=== PATIENT | female | born 1950 | race Caucasian/White ===

== ENCOUNTER → 2018-05-28 10:23 | Outpatient (CLI) | payer MEDICARE, SELFPAY ==
[2018-05-28 12:31] LABS: Absolute Lymphocyte Count 1.52 X10^3/ul (0.83-4.51); Absolute Neutrophil Count 4.6 X10^3/uL (2.0-7.7); Basophil# 0.04 X10^3/uL; Basophil% 0.6 % (0-1); Eosinophils% 1.5 % (0-5); Hematocrit 46.2 % (37-47); Hemoglobin 14.6 g/dl (12.0-15.0); Lymphocyte # 1.52 X10^3/ul (4.0); Lymphocyte % 22.6 % (19-41); Mean Corp Hgb Conc 31.6 g/gl (32-36); Mean Corpuscular Hgb 31.5 pg (27.0-32.0); Mean Corpuscular Volume 99.8 fL (81-99); Mean Platelet Vol. 12.2 fl (6.2-12.0); Monocyte# 0.51 X10^3/uL; Monocyte% 7.6 % (0-10); Neutrophil # 4.55 X10^3/uL (2.7-7.7); Neutrophil % 67.7 % (47-70); Platelet Count 186 K/mm3 (150-450); RBC Distribution Width CV 13.4 % (11.6-14.6); RBC Distribution Width SD 48.5 fl (35.1-43.9); Red Blood Count 4.63 M/mm3 (4.2-5.4); White Blood Count 6.7 K/mm3 (4.4-11.0)
[2018-05-28 12:40] LABS: POSITIVE COUNT NO; POSITIVE DIFFERENTIAL NO; POSITIVE MORPHOLOGY NO
[2018-05-28 12:48] LABS: Vitamin D,25 Hydroxy 43.1 ng/mL (29.95-100.01)
[2018-05-28 13:02] LABS: ALB/GLOB Ratio 0.9 RATIO (0.9-2.4); AST(SGOT) 25 U/L (15-37); Alanine Aminotransfer ALT/SGPT 24 U/L (13-56); Albumin, Serum 3.5 g/dL (3.2-5.0); Alkaline Phosphatase 62 U/L (45-117); Anion Gap 11 (5-15); BUN 10 mg/dL (7-18); BUN/Creat Ratio 11.5 RATIO (10-20); Calcium,Total 9.5 mg/dL (8.5-10.1); Chloride 105 mmol/L (98-107); Creatinine, Serum 0.87 mg/dL (0.55-1.02); EST Glomerular Filtration Rate 69 mL/min (>60); Est Glom Filt Rate - Afr Amer 84 mL/min (>60); Globulin 3.7 g/dL (2.2-4.2); Glucose 96 mg/dL (74-106); Potassium 3.8 mmol/L (3.5-5.1); Protein, Total 7.2 g/dL (6.4-8.2); Sodium Level 143 mmol/L (136-145); Thyroid Stim Hormone (TSH) 4.17 uIU/mL (0.358-3.74)
[2018-05-29 14:39] LABS: Hep C Antibodies <0.1 s/co ratio (0.0-0.9)
== END ==
PROVIDERS: Family Provider Family Medicine Geriatric Medicine; PCP Family Medicine Geriatric Medicine; Visit Provider Family Medicine Geriatric Medicine
DX: E55.9 Vitamin D deficiency, unspecified (principal); R53.83 Other fatigue; Z13.89 Encounter for screening for other disorder
CPT/HCPCS: 36415; 80053; 82306; 84443; 85025; 86803

== ENCOUNTER 2018-10-17 12:43 | Inpatient (IN) | payer MEDICARE, SELFPAY ==
[2018-10-17] VITALS (8 sets, daily range): BP systolic 114–136; BP diastolic 61–84; PULSE 109–125; RESP 16–23; TEMP 36.6–37.6; O2SAT 93–99; BMI 22.4; BMI 22.5; BMI 31.1
[2018-10-17] MEDS: 0.9% Normal Saline 1,000 ML 1000 ML IV (13:34)
[2018-10-17 13:46] LABS: Absolute Lymphocyte Count 2.19 X10^3/ul (0.83-4.51); Absolute Neutrophil Count 3.1 X10^3/uL (2.0-7.7); Basophil# 0.09 X10^3/uL; Basophil% 1.6 % (0-1); Eosinophil# 0.03 X10^3/uL; Eosinophils% 0.5 % (0-5); Hematocrit 44.1 % (37-47); Hemoglobin 14.5 g/dl (12.0-15.0); Lymphocyte # 2.19 X10^3/ul (4.0); Mean Corp Hgb Conc 32.9 g/gl (32-36); Mean Corpuscular Hgb 32.4 pg (27.0-32.0); Mean Corpuscular Volume 98.4 fL (81-99); Mean Platelet Vol. 9.5 fl (6.2-12.0); Monocyte# 0.31 X10^3/uL; Monocyte% 5.4 % (0-10); Neutrophil # 3.14 X10^3/uL (2.7-7.7); Neutrophil % 54.3 % (47-70); Platelet Count 228 K/mm3 (150-450); RBC Distribution Width CV 13.6 % (11.6-14.6); RBC Distribution Width SD 49.1 fl (35.1-43.9); Red Blood Count 4.48 M/mm3 (4.2-5.4); White Blood Count 5.8 K/mm3 (4.4-11.0)
[2018-10-17 13:48] LABS: POSITIVE COUNT NO; POSITIVE DIFFERENTIAL NO; POSITIVE MORPHOLOGY NO
[2018-10-17] MEDS: LORazepam 2 MG/ML Syringe 1 MG IV ×2 (13:51→19:34)
[2018-10-17 13:56] LABS: ALB/GLOB Ratio 1.1 RATIO (0.9-2.4); AST(SGOT) 39 U/L (15-37); Alanine Aminotransfer ALT/SGPT 31 U/L (13-56); Albumin, Serum 3.5 g/dL (3.2-5.0); Alkaline Phosphatase 86 U/L (45-117); Anion Gap 10 (5-15); BUN 8 mg/dL (7-18); BUN/Creat Ratio 13.4 RATIO (10-20); Calcium,Total 8.4 mg/dL (8.5-10.1); Chloride 108 mmol/L (98-107); EST Glomerular Filtration Rate 107 mL/min (>60); Est Glom Filt Rate - Afr Amer 129 mL/min (>60); Estimated Creatinine Clearance 49.12 ml/min; Globulin 3.3 g/dL (2.2-4.2); Glucose 89 mg/dL (74-106); Potassium 3.5 mmol/L (3.5-5.1); Protein, Total 6.8 g/dL (6.4-8.2); Sodium Level 147 mmol/L (136-145)
--- NOTE | 2018-10-17 14:26 | ED.RN ---
LAB CALLED WITH CRITICAL LAB RESULTS. etoh 404. DR. OLIVA MADE AWARE NO NEW ORDERS AT THIS TIME
[2018-10-17 15:37] LABS: Amphetamine Urine VISTA NEGATIVE (<1000 ng/mL); Barbiturate Urine VISTA NEGATIVE (< 200 ng/mL); Benzodiazepine Urine VISTA NEGATIVE (< 200 ng/mL); Cocaine Urine VISTA NEGATIVE (< 300 ng/mL); Ecstacy Urine VISTA NEGATIVE (< 500 ng/mL); Methadone Urine VISTA NEGATIVE (< 300 ng/mL); PCP Urine VISTA NEGATIVE (< 25 ng/mL); THC Urine VISTA NEGATIVE (< 50 ng/mL); Vista UDS pH Range 6
--- NOTE | 2018-10-17 16:11 | ED.DCSUM_ITS ---
- ER Visit Summary Date of Service: 10/17/18 Chief Complaint: I am a drunk. History of Present Illness: The patient is a [address] Palacios. She reports that she drinks daily and has for years. She reports that she drinks a pint of vodka per day. She has had alcohol withdrawal in the past and states she feels shaky as though she is in withdrawal now. She reports her last drink was at 7 PM yesterday. Review of systems: General: No fever, chills, cold sweats. Cardiovascular: No chest pain, palpitations. Respiratory: No cough, shortness of breath, dyspnea on exertion. Gastrointestinal: No abdominal pain, nausea, vomiting, diarrhea, melena, or hematochezia. Genitourinary: No dysuria, frequency, hematuria. Skin: No rash. Neuro: No headache, numbness, weakness. Physical Examination: Vitals: 98.6, 136/84, 125, 18, 98% on room air which is not hypoxic. General: Well-nourished and well-developed. Head: Normocephalic atraumatic. Neck: Supple, no lymphadenopathy. No JVD. Nontender. Cardiovascular: Tachycardic regular rhythm no murmurs. Respiratory: No respiratory distress. Clear to auscultation bilaterally. Abdominal: Soft, nontender, nondistended, normal bowel sounds. No guarding, rebound, or peritoneal signs. Back: Nontender. Extremities: Nontender, no edema. Skin: Normal color, no rash. Neurologic: Alert and oriented ?3. Cranial nerves II through XII are intact. Normal strength and sensation. Psych: Depressed affect. Test Results: CBC is marked for basophils of 2. Chem-7 is remarkable for sodium 147, chloride 108, calcium 8.4. LFTs marked for an AST of 39. Tox screen is negative. But alcohol level is 404. Emergency Department Course and Treatment: Patient was given a milligram of Ativan IV. She is resting comfortably. Treatment Plan: Patient was discussed with [facility]. They have seen her in the [facility] department and feel that she is appropriate for admission to the program. Patient was discussed with Dr. Robert and will be admitted. Disposition: Admitted in stable condition. Impression: 1. Alcohol intoxication. This note was generated with [employer] software. It may contain incorrect words, spelling, and punctuation that were not noted in review of the chart prior to signing ED Disposition - Plan for ED Patient: Chief Complaint: Substance Abuse Referrals: Khai Palacios Chi, MD [Primary Care Provider] -
--- NOTE | 2018-10-17 16:44 | PCM.HP.STD ---
Problem List (1) Alcohol withdrawal Status: Acute (2) AA (alcohol abuse) Status: Chronic (3) Tobacco dependence Status: Chronic (4) GI bleed Status: Chronic Qualifiers: GI bleed type/associated pathology: unspecified gastrointestinal hemorrhage type Qualified Code(s): K92.2 - Gastrointestinal hemorrhage, unspecified (5) Hypothyroidism Status: Chronic Qualifiers: Hypothyroidism type: unspecified Qualified Code(s): E03.9 - Hypothyroidism, unspecified (6) Hyperlipidemia Status: Chronic Qualifiers: Hyperlipidemia type: unspecified Qualified Code(s): E78.5 - Hyperlipidemia, unspecified History of Present Illness Date of Admission: 10/17/18 Chief Complaint: Acute Alcohol Withdrawal with history of DT The patient is a 68 y/o F w/ PMHx: EtOH Abuse (1 pint vodka, whiskey, beer and wine daily), Hypothyroidism, HLD, History of GI bleed, Anxiety and Depression who presents to the [facility] ED on 10/17/17 with her family w/ noted acute EtOH withdrawal, onset starting this late afternoon following last EtOH intake earlier in the AM with onset of mild nausea, very mild tremors, mild agitation as well as tactile disturbances. Patient interested in attaining sober status. Discussed her intake at length upon ED presentation as resulting EtOH level notably elevated and she does not appear intoxicated as initially only admitting to 1 pint vodka daily and noted last intake the evening prior. Patient notes that she has been in acute rehab 3 or 4 times with the last 2 years ago and she remains sober only handful of months following an return to alcohol usage. She does have a history of delirium tremens. In the ED work-up included T 98.6, heart rate 125, BP 136/84, respiratory rate 22, 98% on room air, CBC with WBC 5.8, hemoglobin 14.5, platelet 228 without market shift, CMP with sodium 147, chloride 108, AST/ALT 39/31, urine drug screen negative, alcohol level 404. 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 Past Medical History Past Medical History (Chronic Problems): Chronic Problems AA (alcohol abuse) (Chronic) Tobacco dependence (Chronic) GI bleed (Chronic) Hypothyroidism (Chronic) Hyperlipidemia (Chronic) Allergies No Known Allergies Allergy (Verified 10/17/18 12:46) Home Medications: Ambulatory Orders Medication Instructions Recorded Duloxetine HCl 60 mg PO DAILY 12/26/14 traZODone [Desyrel] 100 mg PO QHS 12/26/14 Aspirin [Aspirin, Baby] 81 mg PO DAILY@0800 10/17/18 Atorvastatin Calcium [Lipitor] 40 mg PO QHS 10/17/18 Levothyroxine [Synthroid] 50 mcg PO DAILY 10/17/18 Surgical History: no surgical history Psychiatric History: Anxiety, Depression 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 Tobacco Use: Cigarettes Alcohol: Heavy - 1 pint vodka, whiskey, beer and wine daily. Drugs: None - *Family History Maternal History Items: Heart Disease Paternal History Items: Heart Disease Review of Systems Constitutional: Reports: Malaise, Weakness, Fatigue. Denies: Chills, Fever, Weight Change HEENT: Denies: Head Aches, Sinus Congestion, Sinus Drainage Cardiovascular: Denies: Chest Pain, Palpitations Respiratory: Denies: Cough, Shortness of breath at rest, Sputum production Gastrointestinal: Denies: Abdominal Pain, Nausea, Vomiting Genitourinary: Denies: Dysuria Musculoskeletal: Denies: Joint Pain, Joint Tenderness Skin: Denies: Rash, Wounds Neurological: Reports: Tremor, Seizures. Denies: Focal weakness, Numbness, Tingling Psychiatric: Reports: Anxiety, Depression. Denies: Homicidal Ideations, Suicidal Ideations Hematologic/ Lymphatic: Reports: Easy Bruising, Easy Bleeding VTE Information - Inpt Only VTE Present on Admission: No VTE Mechan Device Prophylaxis: SCD's VTE Pharm Prophylaxis ordered?: Yes Patient Problems: Active and Suspected Problems Alcohol withdrawal (Acute) Subjective: Seated upright in the ED, mildly agitated, moving about, minimal tremors noted but recent ativan. Objective: Physical Examination: General: awake, alert, oriented x 3 and cooperative, seated upright in the ED bed, mildly agitated, anxious appearing, moving about in the bed, mild tremors, recent ativan given. Skin: normal color, turgor, no icterus, cyanosis. HEENT: AT/NC, EOMI, PERRLA, dry MM, no carotid bruits or JVD noted. Lungs: CTA bilaterally, moderate effort, mild decrease BL bases, no rales, ronchi or wheezing. Heart: Mildly tachycardic with regular rhythm; no gallop, rub audible. Abdomen: soft, NTTP, ND, normal BS, + HM. Extremities: no cyanosis, clubbing, or edema. Neurological: patient awake, alert, oriented x 3; cognitive function intact; pupils equally reactive to light and accomodation; cranial nerves II-XII grossly normal, moving all 4 extremities, no focal deficits, mild tremors, anxious, moving about, strength moderately globally decreased. Psychiatric: affect appears mildly agitated, anxious, no acute evidence of depressive feelings. - Physical Exam Vital Signs Temp Pulse Resp BP Pulse Ox 98.6 F 109 H 16 118/66 99 10/17/18 12:43 10/17/18 16:00 10/17/18 16:00 10/17/18 16:00 10/17/18 16:00 Oxygen Delivery Method Room Air Weight: 135 lb Body Mass Index (BMI) 22.4 Laboratory Tests Past 24 Hrs 10/17/18 10/17/18 10/17/18 13:33 13:33 13:33 WBC 5.8 RBC 4.48 Hgb 14.5 Hct 44.1 MCV 98.4 MCH 32.4 H MCHC 32.9 RDW 13.6 RDW Differential 49.1 H Plt Count 228 MPV 9.5 Immature Gran % (Auto) 0.200 Neut % (Auto) 54.3 Lymph % (Auto) 38.0 [place] % (Auto) 5.4 Eos % (Auto) 0.5 Baso % (Auto) 1.6 H Absolute Neuts (auto) 3.1 Absolute Lymphs (auto) 2.19 Total Counted Not Reportable Sodium 147 H Potassium 3.5 Chloride 108 H Carbon Dioxide 29.0 Anion Gap 10 BUN 8 Creatinine 0.60 Estim Creat Clear Calc 49.12 Est GFR (MDRD) Af Amer 129 Est GFR (MDRD) Non-Af 107 BUN/Creatinine Ratio 13.4 Glucose 89 Calcium 8.4 L Total Bilirubin 0.30 AST 39 H ALT 31 Alkaline Phosphatase 86 Total Protein 6.8 Albumin 3.5 Globulin 3.3 Albumin/Globulin Ratio 1.1 Urine Opiates Screen Urine Methadone Screen Ur Barbiturates Screen Ur Phencyclidine Scrn Ur Amphetamines Screen U Methamphetamin-MDMA U Benzodiazepines Scrn Urine Cocaine Screen U Cannabinoids Screen Ur Drug Screen Comment Ethyl Alcohol 404.0 H* 10/17/18 15:13 WBC RBC Hgb Hct MCV MCH MCHC RDW RDW Differential Plt Count MPV Immature Gran % (Auto) Neut % (Auto) Lymph % (Auto) [place] % (Auto) Eos % (Auto) Baso % (Auto) Absolute Neuts (auto) Absolute Lymphs (auto) Total Counted Sodium Potassium Chloride Carbon Dioxide Anion Gap BUN Creatinine Estim Creat Clear Calc Est GFR (MDRD) Af Amer Est GFR (MDRD) Non-Af BUN/Creatinine Ratio Glucose Calcium Total Bilirubin AST ALT Alkaline Phosphatase Total Protein Albumin Globulin Albumin/Globulin Ratio Urine Opiates Screen NEGATIVE Urine Methadone Screen NEGATIVE Ur Barbiturates Screen NEGATIVE Ur Phencyclidine Scrn NEGATIVE Ur Amphetamines Screen NEGATIVE U Methamphetamin-MDMA NEGATIVE U Benzodiazepines Scrn NEGATIVE Urine Cocaine Screen NEGATIVE U Cannabinoids Screen NEGATIVE Ur Drug Screen Comment Ethyl Alcohol Assessment/Plan All Active Problems Alcohol withdrawal (Acute) The patient is a 68 y/o F w/ PMHx: EtOH Abuse (1 pint vodka, whiskey, beer and wine daily), Hypothyroidism, HLD, History of GI bleed, Anxiety and Depression who presents to the [facility] ED on 10/17/17 with her family w/ noted acute EtOH withdrawal, onset starting this late afternoon following last EtOH intake earlier in the AM with onset of mild nausea, very mild tremors, mild agitation as well as tactile disturbances. Patient interested in attaining sober status. (1) Acute EtOH Withdrawal: Will admit to [facility] on telemetry, routine labs obtained in the ED including CBC, CMP, urine for drug screen, will obtain mag and phos levels, given symptoms, [facility] noted CIWA 21 score despite notable EtOH level, will initiate and continue on [facility] service protocol with taper course of librium, as needed Seroquel, Catapres, Bentyl, Vistaril, IV fluids, IV antiemetics, Tylenol as needed for pain. Once patient clinically improved and completion of taper nearing will plan [facility] assistance for transition to next level of rehabilitation care. Maintain on CIWA protocol. (2) Anxiety and Depression: Continue home regimen of duloxetine which could be increased, nightly trazodone. Discussed need for [facility] discussion with patient for establishment of outpatient therapy in addition to ongoing medications with consideration of increase of duloxetine. (3) Tobacco Abuse: Encouraged cessation, inpatient consultation per RT, NR deferred given very low amount of cigarette usage. (4) Hypothyroidism: Continue home synthroid regimen, TSH pending. (5) Hyperlipidemia: Continue home statin regimen. (6) History of GI bleed, GERD: PPI. (7) DVT Prophylaxis: SCDs, lovenox. Code Visit Inpatient E&M: 65000 Init Hosp L3
--- NOTE | 2018-10-17 16:54 | HP.PCM_ITS ---
Problem List (1) Alcohol withdrawal Status: Acute (2) AA (alcohol abuse) Status: Chronic (3) Tobacco dependence Status: Chronic (4) GI bleed Status: Chronic Qualifiers: GI bleed type/associated pathology: unspecified gastrointestinal hemorrhage type Qualified Code(s): K92.2 - Gastrointestinal hemorrhage, unspecified (5) Hypothyroidism Status: Chronic Qualifiers: Hypothyroidism type: unspecified Qualified Code(s): E03.9 - Hypothyroidism, unspecified (6) Hyperlipidemia Status: Chronic Qualifiers: Hyperlipidemia type: unspecified Qualified Code(s): E78.5 - Hyperlipidemia, unspecified History of Present Illness Date of Admission: 10/17/18 Chief Complaint: Acute Alcohol Withdrawal with history of DT The patient is a 68 y/o F w/ PMHx: EtOH Abuse (1 pint vodka, whiskey, beer and wine daily), Hypothyroidism, HLD, History of GI bleed, Anxiety and Depression who presents to the [facility] ED on 10/17/17 with her family w/ noted acute EtOH withdrawal, onset starting this late afternoon following last EtOH intake earlier in the AM with onset of mild nausea, very mild tremors, mild agitation as well as tactile disturbances. Patient interested in attaining sober status. Discussed her intake at length upon ED presentation as resulting EtOH level notably elevated and she does not appear intoxicated as initially only admitting to 1 pint vodka daily and noted last intake the evening prior. Patient notes that she has been in acute rehab 3 or 4 times with the last 2 years ago and she remains sober only handful of months following an return to alcohol usage. She does have a history of delirium tremens. In the ED work-up included T 98.6, heart rate 125, BP 136/84, respiratory rate 22, 98% on room air, CBC with WBC 5.8, hemoglobin 14.5, platelet 228 without market shift, CMP with sodium 147, chloride 108, AST/ALT 39/31, urine drug screen negative, alcohol level 404. 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 Past Medical History Past Medical History (Chronic Problems): Chronic Problems AA (alcohol abuse) (Chronic) Tobacco dependence (Chronic) GI bleed (Chronic) Hypothyroidism (Chronic) Hyperlipidemia (Chronic) Allergies No Known Allergies Allergy (Verified 10/17/18 12:46) Home Medications: Ambulatory Orders Medication Instructions Recorded Duloxetine HCl 60 mg PO DAILY 12/26/14 traZODone [Desyrel] 100 mg PO QHS 12/26/14 Aspirin [Aspirin, Baby] 81 mg PO DAILY@0800 10/17/18 Atorvastatin Calcium [Lipitor] 40 mg PO QHS 10/17/18 Levothyroxine [Synthroid] 50 mcg PO DAILY 10/17/18 Surgical History: no surgical history Psychiatric History: Anxiety, Depression LICENSED PROSTHETIST/ORTHOTIST History: No pertinent LICENSED PROSTHETIST/ORTHOTIST history Lives: Spouse/ Significant Other Smoking Status: Current some day smoker - 1-4 cig/day. Tobacco Use: Cigarettes Alcohol: Heavy - 1 pint vodka, whiskey, beer and wine daily. Drugs: None - *Family History Maternal History Items: Heart Disease Paternal History Items: Heart Disease Review of Systems Constitutional: Reports: Malaise, Weakness, Fatigue. Denies: Chills, Fever, Weight Change HEENT: Denies: Head Aches, Sinus Congestion, Sinus Drainage Cardiovascular: Denies: Chest Pain, Palpitations Respiratory: Denies: Cough, Shortness of breath at rest, Sputum production Gastrointestinal: Denies: Abdominal Pain, Nausea, Vomiting Genitourinary: Denies: Dysuria Musculoskeletal: Denies: Joint Pain, Joint Tenderness Skin: Denies: Rash, Wounds Neurological: Reports: Tremor, Seizures. Denies: Focal weakness, Numbness, Tingling Psychiatric: Reports: Anxiety, Depression. Denies: Homicidal Ideations, Suicidal Ideations Hematologic/ Lymphatic: Reports: Easy Bruising, Easy Bleeding VTE Information - Inpt Only VTE Present on Admission: No VTE Mechan Device Prophylaxis: SCD's VTE Pharm Prophylaxis ordered?: Yes Patient Problems: Active and Suspected Problems Alcohol withdrawal (Acute) Subjective: Seated upright in the ED, mildly agitated, moving about, minimal tremors noted but recent ativan. Objective: Physical Examination: General: awake, alert, oriented x 3 and cooperative, seated upright in the ED bed, mildly agitated, anxious appearing, moving about in the bed, mild tremors, recent ativan given. Skin: normal color, turgor, no icterus, cyanosis. HEENT: AT/NC, EOMI, PERRLA, dry MM, no carotid bruits or JVD noted. Lungs: CTA bilaterally, moderate effort, mild decrease BL bases, no rales, ronchi or wheezing. Heart: Mildly tachycardic with regular rhythm; no gallop, rub audible. Abdomen: soft, NTTP, ND, normal BS, + HM. Extremities: no cyanosis, clubbing, or edema. Neurological: patient awake, alert, oriented x 3; cognitive function intact; pupils equally reactive to light and accomodation; cranial nerves II-XII grossly normal, moving all 4 extremities, no focal deficits, mild tremors, anxious, moving about, strength moderately globally decreased. Psychiatric: affect appears mildly agitated, anxious, no acute evidence of depressive feelings. - Physical Exam Vital Signs Temp Pulse Resp BP Pulse Ox 98.6 F 109 H 16 118/66 99 10/17/18 12:43 10/17/18 16:00 10/17/18 16:00 10/17/18 16:00 10/17/18 16:00 Oxygen Delivery Method Room Air Weight: 135 lb Body Mass Index (BMI) 22.4 Laboratory Tests Past 24 Hrs 10/17/18 10/17/18 10/17/18 13:33 13:33 13:33 WBC 5.8 RBC 4.48 Hgb 14.5 Hct 44.1 MCV 98.4 MCH 32.4 H MCHC 32.9 RDW 13.6 RDW Differential 49.1 H Plt Count 228 MPV 9.5 Immature Gran % (Auto) 0.200 Neut % (Auto) 54.3 Lymph % (Auto) 38.0 [place] % (Auto) 5.4 Eos % (Auto) 0.5 Baso % (Auto) 1.6 H Absolute Neuts (auto) 3.1 Absolute Lymphs (auto) 2.19 Total Counted Not Reportable Sodium 147 H Potassium 3.5 Chloride 108 H Carbon Dioxide 29.0 Anion Gap 10 BUN 8 Creatinine 0.60 Estim Creat Clear Calc 49.12 Est GFR (MDRD) Af Amer 129 Est GFR (MDRD) Non-Af 107 BUN/Creatinine Ratio 13.4 Glucose 89 Calcium 8.4 L Total Bilirubin 0.30 AST 39 H ALT 31 Alkaline Phosphatase 86 Total Protein 6.8 Albumin 3.5 Globulin 3.3 Albumin/Globulin Ratio 1.1 Urine Opiates Screen Urine Methadone Screen Ur Barbiturates Screen Ur Phencyclidine Scrn Ur Amphetamines Screen U Methamphetamin-MDMA U Benzodiazepines Scrn Urine Cocaine Screen U Cannabinoids Screen Ur Drug Screen Comment Ethyl Alcohol 404.0 H* 10/17/18 15:13 WBC RBC Hgb Hct MCV MCH MCHC RDW RDW Differential Plt Count MPV Immature Gran % (Auto) Neut % (Auto) Lymph % (Auto) [place] % (Auto) Eos % (Auto) Baso % (Auto) Absolute Neuts (auto) Absolute Lymphs (auto) Total Counted Sodium Potassium Chloride Carbon Dioxide Anion Gap BUN Creatinine Estim Creat Clear Calc Est GFR (MDRD) Af Amer Est GFR (MDRD) Non-Af BUN/Creatinine Ratio Glucose Calcium Total Bilirubin AST ALT Alkaline Phosphatase Total Protein Albumin Globulin Albumin/Globulin Ratio Urine Opiates Screen NEGATIVE Urine Methadone Screen NEGATIVE Ur Barbiturates Screen NEGATIVE Ur Phencyclidine Scrn NEGATIVE Ur Amphetamines Screen NEGATIVE U Methamphetamin-MDMA NEGATIVE U Benzodiazepines Scrn NEGATIVE Urine Cocaine Screen NEGATIVE U Cannabinoids Screen NEGATIVE Ur Drug Screen Comment Ethyl Alcohol Assessment/Plan All Active Problems Alcohol withdrawal (Acute) The patient is a 68 y/o F w/ PMHx: EtOH Abuse (1 pint vodka, whiskey, beer and wine daily), Hypothyroidism, HLD, History of GI bleed, Anxiety and Depression who presents to the [facility] ED on 10/17/17 with her family w/ noted acute EtOH withdrawal, onset starting this late afternoon following last EtOH intake earlier in the AM with onset of mild nausea, very mild tremors, mild agitation as well as tactile disturbances. Patient interested in attaining sober status. (1) Acute EtOH Withdrawal: Will admit to [facility] on telemetry, routine labs obtained in the ED including CBC, CMP, urine for drug screen, will obtain mag and phos levels, given symptoms, [facility] noted CIWA 21 score despite notable EtOH level, will initiate and continue on [facility] service protocol with taper course of librium, as needed Seroquel, Catapres, Bentyl, Vistaril, IV fluids, IV antiemetics, Tylenol as needed for pain. Once patient clinically improved and completion of taper nearing will plan [facility] assistance for transition to next level of rehabilitation care. Maintain on CIWA protocol. (2) Anxiety and Depression: Continue home regimen of duloxetine which could be increased, nightly trazodone. Discussed need for [facility] discussion with patient for establishment of outpatient therapy in addition to ongoing medications with consideration of increase of duloxetine. (3) Tobacco Abuse: Encouraged cessation, inpatient consultation per RT, NR deferred given very low amount of cigarette usage. (4) Hypothyroidism: Continue home synthroid regimen, TSH pending. (5) Hyperlipidemia: Continue home statin regimen. (6) History of GI bleed, GERD: PPI. (7) DVT Prophylaxis: SCDs, lovenox. Code Visit Inpatient E&M: 00619 Init Hosp L3
--- NOTE | 2018-10-17 17:37 | PCA ---
rn in with pt
[2018-10-17 17:38] LABS: Magnesium 1.7 mg/dL (1.6-2.6); Phosphorus 2.3 mg/dL (2.5-4.9); T4 Free Direct 0.91 ng/dL (0.76-1.46); Thyroid Stim Hormone (TSH) 1.93 uIU/mL (0.358-3.74)
--- NOTE | 2018-10-17 17:44 | NURSING ---
SISTER AT BEDSIDE, SISTER IS TAKING HOME PT HOME MEDICATIONS THAT WERE IN PT OWN MED BOTTLE. PT DECLINES TO SEND HOME OTHER ANY OTHER BELONGINGS WITH HER SISTER.
[2018-10-17 17:47] LABS: International Normalized Ratio 0.9; Partial Thromboplast Time 28.7 Seconds (24.1-36.2); Prothrombin Time (Protime)PT. 12.3 SECONDS (11.7-14.9)
[2018-10-17] MEDS: hydrOXYzine PAM 25 MG Capsule 50 MG PO (17:58)
[2018-10-17] MEDS: chlordiazePOXIDE 25 MG Capsule PO ×2 (17:58→23:00)
[2018-10-17] MEDS: Methocarbamol 750 MG Tablet PO (17:58)
[2018-10-17] MEDS: Lactated Ringers 1,000 ML 125 ML IV (17:58)
[2018-10-17] MEDS: Atorvastatin Calcium 40 MG Tablet PO (22:01)
[2018-10-17] MEDS: Pantoprazole Sodium 20 MG Tablet PO (22:01)
[2018-10-17] MEDS: traZODone 100 MG Tablet PO (22:01)
[2018-10-18 02:00] VITALS: BP 144/96; PULSE 103; RESP 16; TEMP 36.5; O2SAT 96
[2018-10-18] MEDS: chlordiazePOXIDE 25 MG Capsule PO ×3 (05:31→20:15)
[2018-10-18] MEDS: hydrOXYzine PAM 25 MG Capsule 50 MG PO (05:31)
[2018-10-18 06:00] VITALS: BP 135/88; PULSE 99; RESP 16; TEMP 36.6
[2018-10-18] MEDS: Levothyroxine 50 MCG Tablet PO (06:28)
[2018-10-18 08:45] VITALS: BP 141/73; PULSE 101; RESP 16; TEMP 36.7
[2018-10-18] MEDS: Multivitamins,Therapeutic Tablet 1 TABLET PO (08:51)
[2018-10-18] MEDS: LORazepam 2 MG/ML Syringe 1 MG IV ×3 (08:51→19:28)
[2018-10-18] MEDS: Thiamine Hydrochloride 100 MG Tablet PO (08:51)
[2018-10-18] MEDS: Folic Acid 1 MG Tablet PO (08:52)
[2018-10-18] MEDS: DULoxetine Hcl 60 MG Capsule PO (08:52)
[2018-10-18] MEDS: Aspirin 81 MG TAB.CHEW PO (08:52)
[2018-10-18] MEDS: Pantoprazole Sodium 20 MG Tablet PO ×2 (08:59→21:29)
[2018-10-18] MEDS: Enoxaparin 40 MG/0.4 ML Syringe SC (09:03)
[2018-10-18 09:38] LABS: Anion Gap 9 (5-15); BUN 11 mg/dL (7-18); BUN/Creat Ratio 15.6 RATIO (10-20); Calcium,Total 8.6 mg/dL (8.5-10.1); Chloride 110 mmol/L (98-107); Creatinine, Serum 0.71 mg/dL (0.55-1.02); EST Glomerular Filtration Rate 88 mL/min (>60); Est Glom Filt Rate - Afr Amer 106 mL/min (>60); Estimated Creatinine Clearance 49.12 ml/min; Glucose 97 mg/dL (74-106); Potassium 3.6 mmol/L (3.5-5.1); Sodium Level 146 mmol/L (136-145)
--- NOTE | 2018-10-18 12:40 | PN_ITS ---
<Jessica Elise - Last Filed: 10/18/18 12:40> Patient Problems: Active and Suspected Problems Alcohol withdrawal (Acute) Subjective: Patient seen and examined. No acute events overnight. Denies current complaints. - Physical Exam General: Alert, Oriented x3, Cooperative HEENT: Atraumatic, PERRLA, EOMI, Normocephalic Neck: Supple, No JVD, Negative Carotid Bruits Lungs: Clear to auscultation, Normal air movement Cardiovascular: Regular rate, Regular Rhythm, Normal S1, Normal S2, No murmurs Abdomen: Bowel Sounds Present, Soft, Non Tender, Non-Distended Extremities: No clubbing, No cyanosis, No edema, Capillary Refill Less than 3 Seconds Skin: No rashes, No breakdown Musculoskeletal: No Tenderness to Palpation of Joints or Extremities Neurological: Cranial nerves II-XII grossly intact, Neuro grossly intact Psych/Mental Status: Normal Affect, Appropriate Vital Signs Temp Pulse Resp BP Pulse Ox 98.0 F 101 H 16 141/73 H 96 10/18/18 08:45 10/18/18 08:45 10/18/18 08:45 10/18/18 08:45 10/18/18 02:00 Oxygen Delivery Method Room Air Weight: 187 lb 2.759 oz Body Mass Index (BMI) 31.1 Intake and Output for Last 24 Hours 10/16/18 10/17/18 10/18/18 23:59 23:59 23:59 Intake Total 2385 / 2385 Balance 2385 / 2385 Laboratory Tests Past 24 Hrs 10/17/18 10/17/18 10/17/18 13:33 13:33 13:33 WBC 5.8 RBC 4.48 Hgb 14.5 Hct 44.1 MCV 98.4 MCH 32.4 H MCHC 32.9 RDW 13.6 RDW Differential 49.1 H Plt Count 228 MPV 9.5 Immature Gran % (Auto) 0.200 Neut % (Auto) 54.3 Lymph % (Auto) 38.0 [place] % (Auto) 5.4 Eos % (Auto) 0.5 Baso % (Auto) 1.6 H Absolute Neuts (auto) 3.1 Absolute Lymphs (auto) 2.19 Total Counted Not Reportable PT INR APTT Sodium 147 H Potassium 3.5 Chloride 108 H Carbon Dioxide 29.0 Anion Gap 10 BUN 8 Creatinine 0.60 Estim Creat Clear Calc 49.12 Est GFR (MDRD) Af Amer 129 Est GFR (MDRD) Non-Af 107 BUN/Creatinine Ratio 13.4 Glucose 89 Calcium 8.4 L Phosphorus Magnesium Total Bilirubin 0.30 AST 39 H ALT 31 Alkaline Phosphatase 86 Total Protein 6.8 Albumin 3.5 Globulin 3.3 Albumin/Globulin Ratio 1.1 TSH Free T4 Urine Opiates Screen Urine Methadone Screen Ur Barbiturates Screen Ur Phencyclidine Scrn Ur Amphetamines Screen U Methamphetamin-MDMA U Benzodiazepines Scrn Urine Cocaine Screen U Cannabinoids Screen Ur Drug Screen Comment Ethyl Alcohol 404.0 H* 10/17/18 10/17/18 10/17/18 13:33 13:33 15:13 WBC RBC Hgb Hct MCV MCH MCHC RDW RDW Differential Plt Count MPV Immature Gran % (Auto) Neut % (Auto) Lymph % (Auto) [place] % (Auto) Eos % (Auto) Baso % (Auto) Absolute Neuts (auto) Absolute Lymphs (auto) Total Counted PT 12.3 INR 0.9 APTT 28.7 Sodium Potassium Chloride Carbon Dioxide Anion Gap BUN Creatinine Estim Creat Clear Calc Est GFR (MDRD) Af Amer Est GFR (MDRD) Non-Af BUN/Creatinine Ratio Glucose Calcium Phosphorus 2.3 L Magnesium 1.7 Total Bilirubin AST ALT Alkaline Phosphatase Total Protein Albumin Globulin Albumin/Globulin Ratio TSH 1.93 Free T4 0.91 Urine Opiates Screen NEGATIVE Urine Methadone Screen NEGATIVE Ur Barbiturates Screen NEGATIVE Ur Phencyclidine Scrn NEGATIVE Ur Amphetamines Screen NEGATIVE U Methamphetamin-MDMA NEGATIVE U Benzodiazepines Scrn NEGATIVE Urine Cocaine Screen NEGATIVE U Cannabinoids Screen NEGATIVE Ur Drug Screen Comment Ethyl Alcohol 10/18/18 08:58 WBC RBC Hgb Hct MCV MCH MCHC RDW RDW Differential Plt Count MPV Immature Gran % (Auto) Neut % (Auto) Lymph % (Auto) [place] % (Auto) Eos % (Auto) Baso % (Auto) Absolute Neuts (auto) Absolute Lymphs (auto) Total Counted PT INR APTT Sodium 146 H Potassium 3.6 Chloride 110 H Carbon Dioxide 27.0 Anion Gap 9 BUN 11 Creatinine 0.71 Estim Creat Clear Calc 49.12 Est GFR (MDRD) Af Amer 106 Est GFR (MDRD) Non-Af 88 BUN/Creatinine Ratio 15.6 Glucose 97 Calcium 8.6 Phosphorus Magnesium Total Bilirubin AST ALT Alkaline Phosphatase Total Protein Albumin Globulin Albumin/Globulin Ratio TSH Free T4 Urine Opiates Screen Urine Methadone Screen Ur Barbiturates Screen Ur Phencyclidine Scrn Ur Amphetamines Screen U Methamphetamin-MDMA U Benzodiazepines Scrn Urine Cocaine Screen U Cannabinoids Screen Ur Drug Screen Comment Ethyl Alcohol Medical Necessity - Tobacco Use Smoking Status: Current some day smoker - 1-4 cig/day. Tobacco Use: Cigarettes Assessment/Plan All Active Problems Alcohol withdrawal (Acute) 1. Acute alcohol withdrawal, chronic alcohol use-medical stabilization per [facility] protocol. Alcohol level on admission 404. Patient currently without significant withdrawal symptoms, stable. Continue Librium taper and as needed regimen. CIWA protocol. 2. Anxiety/depression-continue home duloxetine, trazodone regimen. 3. Tobacco dependence-encourage smoking cessation. 4. Hypothyroidism-continue Synthroid regimen. 5. Hyperlipidemia-continue statin. 6. GERD/History of GI bleed-continue PPI. DVT prophylaxis-Lovenox This patient was seen by CAMPOS Diaz under the supervision of Dr. Constantin maguire. <Concepcion Cardona - Last Filed: 10/18/18 12:51> - Physical Exam Vital Signs Temp Pulse Resp BP Pulse Ox 98.0 F 101 H 16 141/73 H 96 10/18/18 08:45 10/18/18 08:45 10/18/18 08:45 10/18/18 08:45 10/18/18 02:00 Oxygen Delivery Method Room Air Weight: 187 lb 2.759 oz Body Mass Index (BMI) 31.1 Intake and Output for Last 24 Hours 10/16/18 10/17/18 10/18/18 23:59 23:59 23:59 Intake Total 2385 / 2385 Balance 2385 / 2385 Laboratory Tests Past 24 Hrs 10/17/18 10/17/18 10/17/18 13:33 13:33 13:33 WBC 5.8 RBC 4.48 Hgb 14.5 Hct 44.1 MCV 98.4 MCH 32.4 H MCHC 32.9 RDW 13.6 RDW Differential 49.1 H Plt Count 228 MPV 9.5 Immature Gran % (Auto) 0.200 Neut % (Auto) 54.3 Lymph % (Auto) 38.0 [place] % (Auto) 5.4 Eos % (Auto) 0.5 Baso % (Auto) 1.6 H Absolute Neuts (auto) 3.1 Absolute Lymphs (auto) 2.19 Total Counted Not Reportable PT INR APTT Sodium 147 H Potassium 3.5 Chloride 108 H Carbon Dioxide 29.0 Anion Gap 10 BUN 8 Creatinine 0.60 Estim Creat Clear Calc 49.12 Est GFR (MDRD) Af Amer 129 Est GFR (MDRD) Non-Af 107 BUN/Creatinine Ratio 13.4 Glucose 89 Calcium 8.4 L Phosphorus Magnesium Total Bilirubin 0.30 AST 39 H ALT 31 Alkaline Phosphatase 86 Total Protein 6.8 Albumin 3.5 Globulin 3.3 Albumin/Globulin Ratio 1.1 TSH Free T4 Urine Opiates Screen Urine Methadone Screen Ur Barbiturates Screen Ur Phencyclidine Scrn Ur Amphetamines Screen U Methamphetamin-MDMA U Benzodiazepines Scrn Urine Cocaine Screen U Cannabinoids Screen Ur Drug Screen Comment Ethyl Alcohol 404.0 H* 10/17/18 10/17/18 10/17/18 13:33 13:33 15:13 WBC RBC Hgb Hct MCV MCH MCHC RDW RDW Differential Plt Count MPV Immature Gran % (Auto) Neut % (Auto) Lymph % (Auto) [place] % (Auto) Eos % (Auto) Baso % (Auto) Absolute Neuts (auto) Absolute Lymphs (auto) Total Counted PT 12.3 INR 0.9 APTT 28.7 Sodium Potassium Chloride Carbon Dioxide Anion Gap BUN Creatinine Estim Creat Clear Calc Est GFR (MDRD) Af Amer Est GFR (MDRD) Non-Af BUN/Creatinine Ratio Glucose Calcium Phosphorus 2.3 L Magnesium 1.7 Total Bilirubin AST ALT Alkaline Phosphatase Total Protein Albumin Globulin Albumin/Globulin Ratio TSH 1.93 Free T4 0.91 Urine Opiates Screen NEGATIVE Urine Methadone Screen NEGATIVE Ur Barbiturates Screen NEGATIVE Ur Phencyclidine Scrn NEGATIVE Ur Amphetamines Screen NEGATIVE U Methamphetamin-MDMA NEGATIVE U Benzodiazepines Scrn NEGATIVE Urine Cocaine Screen NEGATIVE U Cannabinoids Screen NEGATIVE Ur Drug Screen Comment Ethyl Alcohol 10/18/18 08:58 WBC RBC Hgb Hct MCV MCH MCHC RDW RDW Differential Plt Count MPV Immature Gran % (Auto) Neut % (Auto) Lymph % (Auto) [place] % (Auto) Eos % (Auto) Baso % (Auto) Absolute Neuts (auto) Absolute Lymphs (auto) Total Counted PT INR APTT Sodium 146 H Potassium 3.6 Chloride 110 H Carbon Dioxide 27.0 Anion Gap 9 BUN 11 Creatinine 0.71 Estim Creat Clear Calc 49.12 Est GFR (MDRD) Af Amer 106 Est GFR (MDRD) Non-Af 88 BUN/Creatinine Ratio 15.6 Glucose 97 Calcium 8.6 Phosphorus Magnesium Total Bilirubin AST ALT Alkaline Phosphatase Total Protein Albumin Globulin Albumin/Globulin Ratio TSH Free T4 Urine Opiates Screen Urine Methadone Screen Ur Barbiturates Screen Ur Phencyclidine Scrn Ur Amphetamines Screen U Methamphetamin-MDMA U Benzodiazepines Scrn Urine Cocaine Screen U Cannabinoids Screen Ur Drug Screen Comment Ethyl Alcohol Assessment/Plan Patient seen by Jessica LONG under my supervision. She was admitted for acute alcohol withdrawal. She complains of some tremors this morning. 12 point review of systems otherwise negative. Labs and vitals reviewed. On examination Vitals; Vital Signs Height 5 ft 5 in Weight: 135 lb Weight in Pounds 135.0 lbs Pulse Ox 96 Temperature 98.0 F Pulse Rate 101 Respiratory Rate 16 Blood Pressure 141/73 Blood Pressure Position Semi-Fowlers General: Alert, Oriented x3, Cooperative HEENT: Atraumatic, PERRLA, EOMI, Normocephalic Neck: Supple, No JVD, Negative Carotid Bruits Lungs: Clear to auscultation, Normal air movement Cardiovascular: Regular rate, Regular Rhythm, Normal S1, Normal S2, No murmurs Abdomen: Bowel Sounds Present, Soft, Non Tender, Non-Distended Extremities: No clubbing, No cyanosis, No edema, Capillary Refill Less than 3 Seconds Skin: No rashes, No breakdown Musculoskeletal: No Tenderness to Palpation of Joints or Extremities Neurological: Cranial nerves II-XII grossly intact, Neuro grossly intact Psych/Mental Status: Normal Affect, Appropriate Plan is to continue Librium taper as per [facility] protocol. Monitor CIWA score. Also has mild asymptomatic hypernatremia. Will continue to monitor, and encourage oral hydration. I have reviewed the rest of Jessica Elise WASTEWATER TECHNICIAN C's note, assessment and plan and agree with it. Code Visit Inpatient E&M: 01301 Subs Hosp L3
[2018-10-18] MEDS: 0.9% NaCl Peripheral Flush Adult/Peds IV ×2 (13:48→19:24)
[2018-10-18 13:50] VITALS: BP 140/68; PULSE 105; RESP 12; TEMP 36.7
--- NOTE | 2018-10-18 13:59 | NURSING ---
met pt at elevators where she said she was wanting to go outside and smoke. informed pt that she is not allowed to leave the unit while under the [facility]. offered pt nicotine patch and gum which she declined. medicated for anxiety and resting in room. pt asked about starting antabuse while here, informed her that I would check with the doctor and let her know.
[2018-10-18 18:08] VITALS: BP 131/78; PULSE 103; RESP 16; TEMP 36.9
[2018-10-18] MEDS: Atorvastatin Calcium 40 MG Tablet PO (21:29)
[2018-10-18] MEDS: traZODone 100 MG Tablet PO (21:29)
[2018-10-18 21:58] VITALS: BP 131/68; PULSE 97; RESP 18; TEMP 36.8
[2018-10-19 04:26] VITALS: BP 132/79; PULSE 71; RESP 18; TEMP 36.7
[2018-10-19] MEDS: Levothyroxine 50 MCG Tablet PO (04:28)
[2018-10-19] MEDS: chlordiazePOXIDE 25 MG Capsule PO ×3 (04:29→20:15)
[2018-10-19] MEDS: Folic Acid 1 MG Tablet PO (08:52)
[2018-10-19] MEDS: Thiamine Hydrochloride 100 MG Tablet PO (08:52)
[2018-10-19] MEDS: Enoxaparin 40 MG/0.4 ML Syringe SC (08:53)
[2018-10-19] MEDS: DULoxetine Hcl 60 MG Capsule PO (08:53)
[2018-10-19] MEDS: Aspirin 81 MG TAB.CHEW PO (08:53)
[2018-10-19] MEDS: Multivitamins,Therapeutic Tablet 1 TABLET PO (08:53)
[2018-10-19] MEDS: Pantoprazole Sodium 20 MG Tablet PO ×2 (08:57→22:42)
[2018-10-19 09:25] VITALS: BP 153/84; PULSE 95; RESP 14; TEMP 36.4; O2SAT 98
--- NOTE | 2018-10-19 12:10 | PCM.PROGNOTE ---
<Jessica Elise - Last Filed: 10/19/18 12:12> Patient Problems: Active and Suspected Problems Alcohol withdrawal (Acute) Subjective: Patient seen and examined. Denies current withdrawal symptoms. Complains of increased depression. Requesting Antabuse prescription at discharge. - Physical Exam General: Alert, Oriented x3, Cooperative HEENT: Atraumatic, PERRLA, EOMI, Normocephalic Neck: Supple, No JVD, Negative Carotid Bruits Lungs: Clear to auscultation, Normal air movement Cardiovascular: Regular rate, Regular Rhythm, Normal S1, Normal S2, No murmurs Abdomen: Bowel Sounds Present, Soft, Non Tender, Non-Distended Extremities: No clubbing, No cyanosis, No edema, Capillary Refill Less than 3 Seconds Skin: No rashes, No breakdown Musculoskeletal: No Tenderness to Palpation of Joints or Extremities Neurological: Cranial nerves II-XII grossly intact, Neuro grossly intact Psych/Mental Status: Flat Affect Vital Signs Temp Pulse Resp BP Pulse Ox 97.5 F L 95 14 153/84 H 98 10/19/18 09:25 10/19/18 09:25 10/19/18 09:25 10/19/18 09:25 10/19/18 09:25 Oxygen Delivery Method Room Air Weight: 135 lb Body Mass Index (BMI) 31.1 Intake and Output for Last 24 Hours 10/17/18 10/18/18 10/19/18 23:59 23:59 23:59 Intake Total 2385 / 2385 700 / 700 Balance 2385 / 2385 700 / 700 Medical Necessity - Tobacco Use Smoking Status: Current some day smoker Tobacco Use: Cigarettes Assessment/Plan All Active Problems Alcohol withdrawal (Acute) 1. Acute alcohol withdrawal, chronic alcohol use-medical stabilization per [facility] protocol. Alcohol level on admission 404. Patient currently without significant withdrawal symptoms, stable. Continue Librium taper and as needed regimen. CIWA protocol. Patient requesting Antabuse prescription at discharge. 2. Anxiety/depression-continue home duloxetine, trazodone regimen. 3. Tobacco dependence-encourage smoking cessation. 4. Hypothyroidism-continue Synthroid regimen. 5. Hyperlipidemia-continue statin. 6. GERD/History of GI bleed-continue PPI. DVT prophylaxis-Lovenox This patient was seen by CAMPOS Diaz under the supervision of Dr. Cardona. <Concepcion Cardona - Last Filed: 10/19/18 12:27> - Physical Exam Vital Signs Temp Pulse Resp BP Pulse Ox 97.5 F L 95 14 153/84 H 98 10/19/18 09:25 10/19/18 09:25 10/19/18 09:25 10/19/18 09:25 10/19/18 09:25 Oxygen Delivery Method Room Air Weight: 135 lb Body Mass Index (BMI) 31.1 Intake and Output for Last 24 Hours 10/17/18 10/18/18 10/19/18 23:59 23:59 23:59 Intake Total 2385 / 2385 700 / 700 Balance 2385 / 2385 700 / 700 Assessment/Plan Patient seen by Jessica LONG under my supervision. She was admitted for acute alcohol withdrawal. She complains of some tremors this morning. 12 point review of systems otherwise negative. Labs and vitals reviewed. On examination Vital Signs Height 5 ft 5 in Weight: 135 lb Weight in Pounds 135.0 lbs Pulse Ox 98 Temperature 97.5 F Pulse Rate 95 Respiratory Rate 14 Blood Pressure 153/84 Blood Pressure Position Semi-Fowlers General: Alert, Oriented x3, Cooperative HEENT: Atraumatic, PERRLA, EOMI, Normocephalic Neck: Supple, No JVD, Negative Carotid Bruits Lungs: Clear to auscultation, Normal air movement Cardiovascular: Regular rate, Regular Rhythm, Normal S1, Normal S2, No murmurs Abdomen: Bowel Sounds Present, Soft, Non Tender, Non-Distended Extremities: No clubbing, No cyanosis, No edema, Capillary Refill Less than 3 Seconds Skin: No rashes, No breakdown Musculoskeletal: No Tenderness to Palpation of Joints or Extremities Neurological: Cranial nerves II-XII grossly intact, Neuro grossly intact Psych/Mental Status: Normal Affect, Appropriate Plan is to continue Librium taper as per [facility] protocol. Monitor CIWA score. Patient would like a prescription for Antabuse upon discharge I have reviewed the rest of Jessica Elise [employer]ANT OPERATOR C's note, assessment and plan and agree with it. Code Visit Inpatient E&M: 53475 Subs Hosp L2
[2018-10-19 14:36] VITALS: BP 134/81; PULSE 98; RESP 14; TEMP 36.9; O2SAT 98
[2018-10-19 20:08] VITALS: BP 125/79; PULSE 99; RESP 18; TEMP 36.8
[2018-10-19] MEDS: Atorvastatin Calcium 40 MG Tablet PO (20:15)
[2018-10-19] MEDS: traZODone 100 MG Tablet PO (22:42)
[2018-10-19 22:54] LABS: Mucous, Urine 0 SEEN /hpf (<or=2+)
[2018-10-19 22:58] LABS: Color, Urine Yellow (Yellow); Glucose, Dipstick Normal (Normal); Ketone-Dipstick Negative (Negative); Leukocyte Esterase-Dipstick 100 /ul (Negative); Nitrite-Dipstick Positive (Negative); Occult Blood-Urine 10 /ul (Negative); Protein-Dipstick Negative (Negative); Urine Bilirubin Dipstick Negative (Negative); Urine Clarity Cloudy (Clear); Urine Urobilinogen 1 mg/dl (Normal)
[2018-10-19 23:10] LABS: Bacteria 3+ /hpf (None Seen); Red Blood Cells-Urine 0-5 SEEN /hpf (0-5); Squamous Epithelial Cells - UA 0-5 SEEN /hpf (5-10); White Blood Cells 25-50 SEEN /hpf (0-5)
[2018-10-19 23:11] LABS: Amorphous Sediment 1+ PHOS
[2018-10-20] MEDS: Levothyroxine 50 MCG Tablet PO (05:54)
[2018-10-20 05:57] VITALS: BP 136/84; PULSE 103; RESP 18; TEMP 36.6
[2018-10-20 07:38] VITALS: BP 133/90; PULSE 108; RESP 18; TEMP 36.4
[2018-10-20] MEDS: Folic Acid 1 MG Tablet PO (07:47)
[2018-10-20] MEDS: DULoxetine Hcl 60 MG Capsule PO (07:47)
[2018-10-20] MEDS: chlordiazePOXIDE 25 MG Capsule PO (07:47)
[2018-10-20] MEDS: Thiamine Hydrochloride 100 MG Tablet PO (07:47)
[2018-10-20] MEDS: Aspirin 81 MG TAB.CHEW PO (07:47)
[2018-10-20] MEDS: Pantoprazole Sodium 20 MG Tablet PO (07:48)
[2018-10-20] MEDS: Enoxaparin 40 MG/0.4 ML Syringe SC (07:48)
--- NOTE | 2018-10-20 09:46 | DCINST_ITS ---
- Discharge Diagnoses Current Active Problems: Current Active and Chronic Problems Alcohol withdrawal (Acute) You will use the following diet at home:: No restrictions Discharge Activity: Return to Normal Activity Call your doctor if you observe: Shortness of breath, Dizziness, Fainting spells, Chest pain Additional Instructions: You were given a prescription for Antabuse, per your request. As discussed, any alcohol or alcohol containing products will cause SEVERE adverse reaction. Symptoms of alcohol ingestion while on this medication can include nausea, vomiting, respiratory difficulty, diaphoresis, chest pain, palpitations, syncope, vertigo, etc. Symptoms can last from 30 minutes to several hours. Again, any alcohol use in any amount is contraindicated while using antabuse. You will need to follow-up with primary care physician in 1 week for further Antabuse prescription. Allergies/Adverse Reactions: Allergies No Known Allergies Allergy (Verified 10/17/18 12:46) Medications to take at Discharge Duloxetine HCl 60 mg PO DAILY 12/26/14 traZODone [Desyrel] 100 mg PO QHS 12/26/14 Aspirin [Aspirin, Baby] 81 mg PO DAILY@0800 10/17/18 Atorvastatin Calcium [Lipitor] 40 mg PO QHS 10/17/18 Levothyroxine [Synthroid] 50 mcg PO DAILY 10/17/18 Ciprofloxacin [Cipro] 250 mg PO BID #10 tablet 10/20/18 Disulfiram [Antabuse] 500 mg PO DAILY #14 tablet 10/20/18 The following prescriptions were given: Disulfiram [Antabuse] 500 mg PO DAILY #14 tablet Ciprofloxacin [Cipro] 250 mg PO BID #10 tablet Primary Care Physician: Khai Palacios Chi, MD [Primary Care Provider] - Please follow up with your Primary Care Physician in: 1 Week Test Results: Test results from this visit will be discussed in further detail at your follow- up appointment, if applicable. Proposed Discharge Date: 10/20/18
--- NOTE | 2018-10-20 09:53 | PCM.DC.SUM ---
<Jessica Elise - Last Filed: 10/20/18 10:05> Discharge Date and Diagnosis Date of Admission: 10/17/18 Date of Discharge: 10/20/18 - Primary Discharge Diagnosis Active and Suspected Problems 1. Acute alcohol withdrawal, chronic alcohol use 2. Acute UTI 3. Tobacco dependence 4. Anxiety/depression 5. Hypothyroidism 6. Hyperlipidemia 7. GERD/history of GI bleed - Secondary Discharge Diagnosis Chronic Problems AA (alcohol abuse) (Chronic) Tobacco dependence (Chronic) GI bleed (Chronic) Hypothyroidism (Chronic) Hyperlipidemia (Chronic) Hospital Course and Treatment Consultations 10/17/18 17:04 Consult: [employer] Routine Consulting Provider: Consulted Physician Type:: [employer] Reason for consult:: etoh withdrawal Operations: None Procedures: None Summary of Care Provided: The patient is a 68 year old F who presented through [facility] program for acute alcohol withdrawal 10/17/2018. 1. Acute alcohol withdrawal, chronic alcohol use-medical stabilization per [facility] protocol. Alcohol level on admission 404. Patient currently without significant withdrawal symptoms, stable. Completed Librium taper. Patient requesting Antabuse prescription at discharge. Patient discharged with Antabuse 500 mg daily for 14 days. Patient will need to follow-up with primary care physician in 1 week for further prescription. 2. Anxiety/depression-continue home duloxetine, trazodone regimen. 3. Tobacco dependence-encourage smoking cessation. 4. Hypothyroidism-continue Synthroid regimen. 5. Hyperlipidemia-continue statin. 6. GERD/History of GI bleed-continue PPI. 7. Acute UTI-culture pending at discharge. Patient discharged on Cipro 250 mg twice daily for 5 days. General: Alert, Oriented x3, Cooperative HEENT: Atraumatic, PERRLA, EOMI, Normocephalic Neck: Supple, No JVD, Negative Carotid Bruits Lungs: Clear to auscultation, Normal air movement Cardiovascular: Regular rate, Regular Rhythm, Normal S1, Normal S2, No murmurs Abdomen: Bowel Sounds Present, Soft, Non Tender, Non-Distended Extremities: No clubbing, No cyanosis, No edema, Capillary Refill Less than 3 Seconds Skin: No rashes, No breakdown Musculoskeletal: No Tenderness to Palpation of Joints or Extremities Neurological: Cranial nerves II-XII grossly intact, Neuro grossly intact Psych/Mental Status: Flat Affect Patient seen and examined prior to discharge. Physical assessment as noted above. Patient is stable for discharge with follow up recommendations as noted above. This patient was seen by CAMPOS Diaz under the supervision of Dr. Cardona. - Physical Exam Vital Signs Temp Pulse Resp BP Pulse Ox 97.5 F L 108 H 18 133/90 H 98 10/20/18 07:38 10/20/18 07:38 10/20/18 07:38 10/20/18 07:38 10/19/18 14:36 Oxygen Delivery Method Room Air Weight: 135 lb Body Mass Index (BMI) 31.1 Intake and Output for Last 24 Hours 10/18/18 10/19/18 10/20/18 23:59 23:59 23:59 Intake Total 2385 / 2385 700 / 700 800 / 800 Balance 2385 / 2385 700 / 700 800 / 800 Laboratory Tests Past 24 Hrs 10/19/18 22:45 Urine Color Yellow Urine Clarity Cloudy Urine pH 7.0 Ur Specific [place] 1.010 Urine Protein Negative Urine Glucose (UA) Normal Urine Ketones Negative Urine Occult Blood 10 H Urine Nitrite Positive H Urine Bilirubin Negative Urine Urobilinogen 1 H Ur Leukocyte Esterase 100 H Urine RBC 0-5 SEEN Urine WBC 25-50 SEEN Ur Squamous Epith Cells 0-5 SEEN Amorphous Sediment 1+ PHOS Urine Bacteria 3+ Urine Mucus 0 SEEN Discharge Diet: No Restrictions Discharge Activity: Return to Normal Activity Call your doctor if you observe: Shortness of breath, Dizziness, Fainting spells, Chest pain Home Medications: Medications to take at Discharge Duloxetine HCl 60 mg PO DAILY 12/26/14 traZODone [Desyrel] 100 mg PO QHS 12/26/14 Aspirin [Aspirin, Baby] 81 mg PO DAILY@0800 10/17/18 Atorvastatin Calcium [Lipitor] 40 mg PO QHS 10/17/18 Levothyroxine [Synthroid] 50 mcg PO DAILY 10/17/18 Ciprofloxacin [Cipro] 250 mg PO BID #10 tablet 10/20/18 Disulfiram [Antabuse] 500 mg PO DAILY #14 tab 10/20/18 Following Prescrptions Were Given to Patient: Disulfiram [Antabuse] 500 mg PO DAILY #14 tab Ciprofloxacin [Cipro] 250 mg PO BID #10 tablet Primary Care Physician: Khai Palacios Chi, MD [Primary Care Provider] - Please follow up with your Primary Care Physician in: 1 Week Additional Instructions: You were given a prescription for Antabuse, per your request. As discussed, any alcohol or alcohol containing products will cause SEVERE adverse reaction. Symptoms of alcohol ingestion while on this medication can include nausea, vomiting, respiratory difficulty, diaphoresis, chest pain, palpitations, syncope, vertigo, etc. Symptoms can last from 30 minutes to several hours. Again, any alcohol use in any amount is contraindicated while using antabuse. You will need to follow-up with primary care physician in 1 week for further Antabuse prescription. Disposition: Home Minutes spent on discharge:: 35 Patient Condition:: Stable Medical Necessity - Tobacco Use Smoking Status: Current some day smoker Tobacco Use: Cigarettes Meaningful Use Info Meaningful Use Diagnoses (Choose all that apply): None applicable <Concepcion Cardona - Last Filed: 10/20/18 14:08> Discharge Date and Diagnosis - Secondary Discharge Diagnosis Chronic Problems AA (alcohol abuse) (Chronic) Tobacco dependence (Chronic) GI bleed (Chronic) Hypothyroidism (Chronic) Hyperlipidemia (Chronic) Hospital Course and Treatment Consultations 10/17/18 17:04 Consult: [facility] Routine Consulting Provider: Consulted Physician Type:: [facility] Reason for consult:: etoh withdrawal Summary of Care Provided: Patient seen by Jessica GASCA under my supervision The patient is a 68 year old F who was admitted for alcohol withdrawal. Alcohol level was followed for admission urine drug screen was otherwise negative. She was admitted and managed for alcohol withdrawal and the [facility] protocol. She was started on Librium alcohol withdrawal protocol. Patient remained stable. Started complaining of burning with urination on day of discharge and UA showed evidence of UTI. She was discharged home with a script for PO ciprofloxacin. She was also discharged with a script for Disulfiram (Antabuse). Patient seen and examined prior to discharge. She had no complaints and felt very well. She denied any fever or chills, D. 12 point review of systems otherwise negative. Labs and vitals reviewed. o/e: Vital Signs Height 5 ft 5 in Weight: 135 lb Weight in Pounds 135.0 lbs Pulse Ox 98 Temperature 97.5 F Pulse Rate 108 Respiratory Rate 18 Blood Pressure 133/90 Blood Pressure Position Sitting General: Alert, Oriented x3, Cooperative HEENT: Atraumatic, PERRLA, EOMI, Normocephalic Neck: Supple, No JVD, Negative Carotid Bruits Lungs: Clear to auscultation, Normal air movement Cardiovascular: Regular rate, Regular Rhythm, Normal S1, Normal S2, No murmurs Abdomen: Bowel Sounds Present, Soft, Non Tender, Non-Distended Extremities: No clubbing, No cyanosis, No edema, Capillary Refill Less than 3 Seconds Skin: No rashes, No breakdown Musculoskeletal: No Tenderness to Palpation of Joints or Extremities Neurological: Cranial nerves II-XII grossly intact, Neuro grossly intact Psych/Mental Status: Normal Affect, Appropriate Plan as described above. I have reviewed the rest of Jessica Elise NURSE LICENSED PRACTICAL-C's note and agree with it. [] - Physical Exam Vital Signs Temp Pulse Resp BP Pulse Ox 97.5 F L 108 H 18 133/90 H 98 10/20/18 07:38 10/20/18 07:38 10/20/18 07:38 10/20/18 07:38 10/19/18 14:36 Oxygen Delivery Method Room Air Weight: 135 lb Body Mass Index (BMI) 31.1 Intake and Output for Last 24 Hours 10/18/18 10/19/18 10/20/18 23:59 23:59 23:59 Intake Total 2385 / 2385 700 / 700 800 / 800 Balance 2385 / 2385 700 / 700 800 / 800 Laboratory Tests Past 24 Hrs 10/19/18 22:45 Urine Color Yellow Urine Clarity Cloudy Urine pH 7.0 Ur Specific [place] 1.010 Urine Protein Negative Urine Glucose (UA) Normal Urine Ketones Negative Urine Occult Blood 10 H Urine Nitrite Positive H Urine Bilirubin Negative Urine Urobilinogen 1 H Ur Leukocyte Esterase 100 H Urine RBC 0-5 SEEN Urine WBC 25-50 SEEN Ur Squamous Epith Cells 0-5 SEEN Amorphous Sediment 1+ PHOS Urine Bacteria 3+ Urine Mucus 0 SEEN Code Visit Inpatient E&M: 33121 Disch Hosp
--- NOTE | 2018-10-20 09:59 | DS.PCM_ITS ---
<Jessica Elise - Last Filed: 10/20/18 10:05> Discharge Date and Diagnosis Date of Admission: 10/17/18 Date of Discharge: 10/20/18 - Primary Discharge Diagnosis Active and Suspected Problems 1. Acute alcohol withdrawal, chronic alcohol use 2. Acute UTI 3. Tobacco dependence 4. Anxiety/depression 5. Hypothyroidism 6. Hyperlipidemia 7. GERD/history of GI bleed - Secondary Discharge Diagnosis Chronic Problems AA (alcohol abuse) (Chronic) Tobacco dependence (Chronic) GI bleed (Chronic) Hypothyroidism (Chronic) Hyperlipidemia (Chronic) Hospital Course and Treatment Consultations 10/17/18 17:04 Consult: [employer] Routine Consulting Provider: Consulted Physician Type:: [employer] Reason for consult:: etoh withdrawal Operations: None Procedures: None Summary of Care Provided: The patient is a 68 year old F who presented through [facility] program for acute alcohol withdrawal 10/17/2018. 1. Acute alcohol withdrawal, chronic alcohol use-medical stabilization per [facility] protocol. Alcohol level on admission 404. Patient currently without significant withdrawal symptoms, stable. Completed Librium taper. Patient requesting Antabuse prescription at discharge. Patient discharged with Antabuse 500 mg daily for 14 days. Patient will need to follow-up with primary care physician in 1 week for further prescription. 2. Anxiety/depression-continue home duloxetine, trazodone regimen. 3. Tobacco dependence-encourage smoking cessation. 4. Hypothyroidism-continue Synthroid regimen. 5. Hyperlipidemia-continue statin. 6. GERD/History of GI bleed-continue PPI. 7. Acute UTI-culture pending at discharge. Patient discharged on Cipro 250 mg twice daily for 5 days. General: Alert, Oriented x3, Cooperative HEENT: Atraumatic, PERRLA, EOMI, Normocephalic Neck: Supple, No JVD, Negative Carotid Bruits Lungs: Clear to auscultation, Normal air movement Cardiovascular: Regular rate, Regular Rhythm, Normal S1, Normal S2, No murmurs Abdomen: Bowel Sounds Present, Soft, Non Tender, Non-Distended Extremities: No clubbing, No cyanosis, No edema, Capillary Refill Less than 3 Seconds Skin: No rashes, No breakdown Musculoskeletal: No Tenderness to Palpation of Joints or Extremities Neurological: Cranial nerves II-XII grossly intact, Neuro grossly intact Psych/Mental Status: Flat Affect Patient seen and examined prior to discharge. Physical assessment as noted above. Patient is stable for discharge with follow up recommendations as noted above. This patient was seen by CAMPOS Diaz under the supervision of Dr. Cardona. - Physical Exam Vital Signs Temp Pulse Resp BP Pulse Ox 97.5 F L 108 H 18 133/90 H 98 10/20/18 07:38 10/20/18 07:38 10/20/18 07:38 10/20/18 07:38 10/19/18 14:36 Oxygen Delivery Method Room Air Weight: 135 lb Body Mass Index (BMI) 31.1 Intake and Output for Last 24 Hours 10/18/18 10/19/18 10/20/18 23:59 23:59 23:59 Intake Total 2385 / 2385 700 / 700 800 / 800 Balance 2385 / 2385 700 / 700 800 / 800 Laboratory Tests Past 24 Hrs 10/19/18 22:45 Urine Color Yellow Urine Clarity Cloudy Urine pH 7.0 Ur Specific [place] 1.010 Urine Protein Negative Urine Glucose (UA) Normal Urine Ketones Negative Urine Occult Blood 10 H Urine Nitrite Positive H Urine Bilirubin Negative Urine Urobilinogen 1 H Ur Leukocyte Esterase 100 H Urine RBC 0-5 SEEN Urine WBC 25-50 SEEN Ur Squamous Epith Cells 0-5 SEEN Amorphous Sediment 1+ PHOS Urine Bacteria 3+ Urine Mucus 0 SEEN Discharge Diet: No Restrictions Discharge Activity: Return to Normal Activity Call your doctor if you observe: Shortness of breath, Dizziness, Fainting spells, Chest pain Home Medications: Medications to take at Discharge Duloxetine HCl 60 mg PO DAILY 12/26/14 traZODone [Desyrel] 100 mg PO QHS 12/26/14 Aspirin [Aspirin, Baby] 81 mg PO DAILY@0800 10/17/18 Atorvastatin Calcium [Lipitor] 40 mg PO QHS 10/17/18 Levothyroxine [Synthroid] 50 mcg PO DAILY 10/17/18 Ciprofloxacin [Cipro] 250 mg PO BID #10 tablet 10/20/18 Disulfiram [Antabuse] 500 mg PO DAILY #14 tab 10/20/18 Following Prescrptions Were Given to Patient: Disulfiram [Antabuse] 500 mg PO DAILY #14 tab Ciprofloxacin [Cipro] 250 mg PO BID #10 tablet Primary Care Physician: Khai Palacios Chi, MD [Primary Care Provider] - Please follow up with your Primary Care Physician in: 1 Week Additional Instructions: You were given a prescription for Antabuse, per your request. As discussed, any alcohol or alcohol containing products will cause SEVERE adverse reaction. Symptoms of alcohol ingestion while on this medication can include nausea, vomiting, respiratory difficulty, diaphoresis, chest pain, palpitations, syncope, vertigo, etc. Symptoms can last from 30 minutes to several hours. Again, any alcohol use in any amount is contraindicated while using antabuse. You will need to follow-up with primary care physician in 1 week for further Antabuse prescription. Disposition: Home Minutes spent on discharge:: 35 Patient Condition:: Stable Medical Necessity - Tobacco Use Smoking Status: Current some day smoker Tobacco Use: Cigarettes Meaningful Use Info Meaningful Use Diagnoses (Choose all that apply): None applicable <Concepcion Cardona - Last Filed: 10/20/18 14:08> Discharge Date and Diagnosis - Secondary Discharge Diagnosis Chronic Problems AA (alcohol abuse) (Chronic) Tobacco dependence (Chronic) GI bleed (Chronic) Hypothyroidism (Chronic) Hyperlipidemia (Chronic) Hospital Course and Treatment Consultations 10/17/18 17:04 Consult: [employer] Routine Consulting Provider: Consulted Physician Type:: [facility] Reason for consult:: etoh withdrawal Summary of Care Provided: Patient seen by Jessica GASCA under my supervision The patient is a 68 year old F who was admitted for alcohol withdrawal. Alcohol level was followed for admission urine drug screen was otherwise negative. She was admitted and managed for alcohol withdrawal and the [facility] protocol. She was started on Librium alcohol withdrawal protocol. Patient remained stable. Started complaining of burning with urination on day of discharge and UA showed evidence of UTI. She was discharged home with a script for PO ciprofloxacin. She was also discharged with a script for Disulfiram (Antabuse). Patient seen and examined prior to discharge. She had no complaints and felt very well. She denied any fever or chills, D. 12 point review of systems otherwise negative. Labs and vitals reviewed. o/e: Vital Signs Height 5 ft 5 in Weight: 135 lb Weight in Pounds 135.0 lbs Pulse Ox 98 Temperature 97.5 F Pulse Rate 108 Respiratory Rate 18 Blood Pressure 133/90 Blood Pressure Position Sitting General: Alert, Oriented x3, Cooperative HEENT: Atraumatic, PERRLA, EOMI, Normocephalic Neck: Supple, No JVD, Negative Carotid Bruits Lungs: Clear to auscultation, Normal air movement Cardiovascular: Regular rate, Regular Rhythm, Normal S1, Normal S2, No murmurs Abdomen: Bowel Sounds Present, Soft, Non Tender, Non-Distended Extremities: No clubbing, No cyanosis, No edema, Capillary Refill Less than 3 Seconds Skin: No rashes, No breakdown Musculoskeletal: No Tenderness to Palpation of Joints or Extremities Neurological: Cranial nerves II-XII grossly intact, Neuro grossly intact Psych/Mental Status: Normal Affect, Appropriate Plan as described above. 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 [] - Physical Exam Vital Signs Temp Pulse Resp BP Pulse Ox 97.5 F L 108 H 18 133/90 H 98 10/20/18 07:38 10/20/18 07:38 10/20/18 07:38 10/20/18 07:38 10/19/18 14:36 Oxygen Delivery Method Room Air Weight: 135 lb Body Mass Index (BMI) 31.1 Intake and Output for Last 24 Hours 10/18/18 10/19/18 10/20/18 23:59 23:59 23:59 Intake Total 2385 / 2385 700 / 700 800 / 800 Balance 2385 / 2385 700 / 700 800 / 800 Laboratory Tests Past 24 Hrs 10/19/18 22:45 Urine Color Yellow Urine Clarity Cloudy Urine pH 7.0 Ur Specific [place] 1.010 Urine Protein Negative Urine Glucose (UA) Normal Urine Ketones Negative Urine Occult Blood 10 H Urine Nitrite Positive H Urine Bilirubin Negative Urine Urobilinogen 1 H Ur Leukocyte Esterase 100 H Urine RBC 0-5 SEEN Urine WBC 25-50 SEEN Ur Squamous Epith Cells 0-5 SEEN Amorphous Sediment 1+ PHOS Urine Bacteria 3+ Urine Mucus 0 SEEN Code Visit Inpatient E&M: 93143 Disch Hosp
== END 2018-10-20 10:18 | disposition home or self-care (01) | DRG 897 ==
LOC: ED 13:27 → MS2 16:54
PROVIDERS: Hospitalist; Admitting Provider Family Medicine; Emergency Provider Emergency Medicine; Family Provider Family Medicine Geriatric Medicine; PCP Family Medicine Geriatric Medicine; Visit Provider Student in an Organized Health Care Education/Training Program
DX: F10.239 Alcohol dependence with withdrawal, unspecified (principal); N39.0 Urinary tract infection, site not specified; E78.5 Hyperlipidemia, unspecified; E03.9 Hypothyroidism, unspecified; K21.9 Gastro-esophageal reflux disease without esophagitis; F17.210 Nicotine dependence, cigarettes, uncomplicated; Y90.8 Blood alcohol level of 240 mg/100 ml or more; F41.9 Anxiety disorder, unspecified; F32.9 Major depressive disorder, single episode, unspecified; Z87.19 Personal history of other diseases of the digestive system
CPT/HCPCS: 36415; 80048; 80053; 80307; 80320; 81001; 83735; 84100; 84439; 84443; 85025; 85610; 85730; 87086; 87088; 87186; 97802; 99283; 99406; J7030; J7120; A4216; G0480

== ENCOUNTER → 2019-08-24 14:24 | Outpatient (CLI) | payer MEDICARE, SELFPAY ==
[2018-10-17 17:12] VITALS: BMI 31.1
[2019-08-24 16:43] LABS: Absolute Lymphocyte Count 2.07 X10^3/uL (0.83-4.51); Absolute Neutrophil Count 3.8 X10^3/uL (2.0-7.7); Basophil# 0.04 X10^3/uL; Basophil% 0.6 % (0-1); Eosinophil# 0.06 X10^3/uL; Eosinophils% 0.9 % (0-5); Hematocrit 43.7 % (37-47); Hemoglobin 14.2 g/dL (12.0-15.0); Lymphocyte # 2.07 X10^3/ul (4.0); Lymphocyte % 31.4 % (19-41); Mean Corp Hgb Conc 32.5 g/dL (32-36); Mean Corpuscular Hgb 31.6 pg (27.0-32.0); Mean Corpuscular Volume 97.1 fL (81-99); Mean Platelet Vol. 12.1 fl (6.2-12.0); Monocyte# 0.57 X10^3/uL; Monocyte% 8.6 % (0-10); NRBC Flagged by Analyzer 0 % (0-5); Neutrophil # 3.84 X10^3/uL (2.7-7.7); Neutrophil % 58.3 % (47-70); Platelet Count 178 K/mm3 (150-450); RBC Distribution Width CV 13.1 % (11.6-14.6); RBC Distribution Width SD 46.7 fl (35.1-43.9); White Blood Count 6.6 K/mm3 (4.4-11.0)
[2019-08-24 16:49] LABS: Vitamin D,25 Hydroxy 75.1 ng/mL (29.95-100.01)
[2019-08-24 16:57] LABS: ALB/GLOB Ratio 1.1 RATIO (0.9-2.4); AST(SGOT) 20 U/L (15-37); Alanine Aminotransfer ALT/SGPT 18 U/L (13-56); Albumin, Serum 3.6 g/dL (3.2-5.0); Alkaline Phosphatase 62 U/L (45-117); Anion Gap 6 (5-15); BUN 16 mg/dL (7-18); BUN/Creat Ratio 21.4 RATIO (10-20); Calcium,Total 9.7 mg/dL (8.5-10.1); Chloride 109 mmol/L (98-107); Creatinine, Serum 0.75 mg/dL (0.55-1.02); EST Glomerular Filtration Rate 82 mL/min (>60); Est Glom Filt Rate - Afr Amer 99 mL/min (>60); Globulin 3.3 g/dL (2.2-4.2); Glucose 115 mg/dL (74-106); Potassium 3.8 mmol/L (3.5-5.1); Protein, Total 6.9 g/dL (6.4-8.2); Sodium Level 139 mmol/L (136-145); Thyroid Stim Hormone (TSH) 1.29 uIU/mL (0.358-3.74)
== END ==
PROVIDERS: Family Provider Family Medicine Geriatric Medicine; PCP Family Medicine Geriatric Medicine; Visit Provider Family Medicine Geriatric Medicine
DX: R53.83 Other fatigue (principal); E55.9 Vitamin D deficiency, unspecified
CPT/HCPCS: 36415; 80053; 82306; 84443; 85025

== ENCOUNTER → 2020-02-29 14:29 | Outpatient (CLI) | payer MEDICARE, SELFPAY ==
[2018-10-17 17:12] VITALS: BMI 31.1
[2020-02-29 16:36] LABS: Absolute Lymphocyte Count 1.67 X10^3/uL (0.83-4.51); Absolute Neutrophil Count 4.9 X10^3/uL (2.0-7.7); Basophil# 0.09 X10^3/uL; Basophil% 1.2 % (0-1); Eosinophil# 0.02 X10^3/uL; Eosinophils% 0.3 % (0-5); Hematocrit 45.2 % (37-47); Hemoglobin 14.6 g/dL (12.0-15.0); Lymphocyte # 1.67 X10^3/ul (4.0); Lymphocyte % 22.4 % (19-41); Mean Corp Hgb Conc 32.3 g/dL (32-36); Mean Corpuscular Hgb 32.7 pg (27.0-32.0); Mean Corpuscular Volume 101.1 fL (81-99); Mean Platelet Vol. 11.5 fl (6.2-12.0); Monocyte# 0.71 X10^3/uL; Monocyte% 9.5 % (0-10); NRBC Flagged by Analyzer 0 % (0-5); Neutrophil # 4.94 X10^3/uL (2.7-7.7); Neutrophil % 66.2 % (47-70); Platelet Count 216 K/mm3 (150-450); RBC Distribution Width SD 48.3 fl (35.1-43.9); Red Blood Count 4.47 M/mm3 (4.2-5.4); White Blood Count 7.5 K/mm3 (4.4-11.0)
[2020-02-29 16:49] LABS: Vitamin D,25 Hydroxy 69.4 ng/mL
[2020-02-29 17:01] LABS: AST(SGOT) 21 U/L (15-37); Alanine Aminotransfer ALT/SGPT 24 U/L (13-56); Albumin, Serum 3.7 g/dL (3.2-5.0); Alkaline Phosphatase 73 U/L (45-117); Anion Gap 8 (5-15); BUN 17 mg/dL (7-18); BUN/Creat Ratio 21.4 RATIO (10-20); Calcium,Total 9.5 mg/dL (8.5-10.1); Chloride 104 mmol/L (98-107); EST Glomerular Filtration Rate 76 mL/min (>60); Est Glom Filt Rate - Afr Amer 92 mL/min (>60); Globulin 3.6 g/dL (2.2-4.2); Glucose 96 mg/dL (74-106); Potassium 3.6 mmol/L (3.5-5.1); Protein, Total 7.3 g/dL (6.4-8.2); Sodium Level 138 mmol/L (136-145); Thyroid Stim Hormone (TSH) 1.85 uIU/mL (0.358-3.74)
== END ==
PROVIDERS: PCP Family Medicine Geriatric Medicine; Visit Provider Family Medicine Geriatric Medicine
DX: E55.9 Vitamin D deficiency, unspecified (principal); R53.83 Other fatigue
CPT/HCPCS: 36415; 80053; 82306; 84443; 85025

== ENCOUNTER → 2020-04-26 16:19 | Outpatient (CLI) | payer MEDICARE, SELFPAY ==
[2018-10-17 17:12] VITALS: BMI 31.1
[2020-04-26 16:56] LABS: Absolute Lymphocyte Count 1.43 X10^3/uL (0.83-4.51); Absolute Neutrophil Count 2.8 X10^3/uL (2.0-7.7); Basophil# 0.05 X10^3/uL; Basophil% 0.9 % (0-1); Eosinophil# 0.03 X10^3/uL; Eosinophils% 0.6 % (0-5); Hematocrit 42.1 % (37-47); Hemoglobin 13.7 g/dL (12.0-15.0); Lymphocyte # 1.43 X10^3/ul (4.0); Lymphocyte % 26.7 % (19-41); Mean Corp Hgb Conc 32.5 g/dL (32-36); Mean Corpuscular Hgb 33.3 pg (27.0-32.0); Mean Corpuscular Volume 102.4 fL (81-99); Mean Platelet Vol. 10.5 fl (6.2-12.0); Monocyte# 1.01 X10^3/uL; Monocyte% 18.8 % (0-10); NRBC Flagged by Analyzer 0 % (0-5); Neutrophil # 2.83 X10^3/uL (2.7-7.7); Neutrophil % 52.8 % (47-70); Platelet Count 182 K/mm3 (150-450); RBC Distribution Width SD 52.5 fl (35.1-43.9); Red Blood Count 4.11 M/mm3 (4.2-5.4); White Blood Count 5.4 K/mm3 (4.4-11.0)
[2020-04-26 17:16] LABS: Erythrocyte Sedimentation Rate 19 mm/hr (0-30)
[2020-04-26 18:14] LABS: Anion Gap 7 (5-15); BUN 12 mg/dL (7-18); BUN/Creat Ratio 16.5 RATIO (10-20); CRP < 2.90 mg/L (0.0-3.0); Calcium,Total 9.2 mg/dL (8.5-10.1); Chloride 105 mmol/L (98-107); Creatinine, Serum 0.73 mg/dL (0.55-1.02); EST Glomerular Filtration Rate 84 mL/min (>60); Est Glom Filt Rate - Afr Amer 102 mL/min (>60); Glucose 90 mg/dL (74-106); Potassium 3.8 mmol/L (3.5-5.1); Sodium Level 138 mmol/L (136-145)
[2020-04-29 01:06] LABS: ANTINUCLEAR ANTIBODIES DIRECT Negative (Negative)
== END ==
PROVIDERS: PCP Family Medicine Geriatric Medicine; Visit Provider Family Medicine Geriatric Medicine
DX: I77.6 Arteritis, unspecified (principal)
CPT/HCPCS: 36415; 80048; 85025; 85652; 86038; 86140; 86431

== ENCOUNTER → 2020-12-02 09:15 | Outpatient (CLI) | payer MEDICARE, SELFPAY ==
[2018-10-17 17:12] VITALS: BMI 31.1
[2020-12-02 13:06] LABS: Hematocrit 43.6 % (37-47); Hemoglobin 13.8 g/dL (12.0-15.0); Lymphocyte % 31.2 % (19-41); Mean Corp Hgb Conc 31.7 g/dL (32-36); Mean Corpuscular Hgb 32.3 pg (27.0-32.0); Mean Corpuscular Volume 102.1 fL (81-99); Mean Platelet Vol. 11.2 fl (6.2-12.0); Monocyte% 12.7 % (0-10); Neutrophil % 54.7 % (47-70); Platelet Count 142 K/mm3 (150-450); RBC Distribution Width CV 14.2 % (11.6-14.6); RBC Distribution Width SD 54.2 fl (35.1-43.9); Red Blood Count 4.27 M/mm3 (4.2-5.4)
[2020-12-02 13:07] LABS: Absolute Lymphocyte Count 2.19 X10^3/uL (0.83-4.51); Absolute Neutrophil Count 3.8 X10^3/uL (2.0-7.7); Basophil# 0.05 X10^3/uL; Basophil% 0.7 % (0-1); Eosinophil# 0.04 X10^3/uL; Eosinophils% 0.6 % (0-5); Lymphocyte # 2.19 X10^3/ul (4.0); Monocyte# 0.89 X10^3/uL; NRBC Flagged by Analyzer 0 % (0-5); Neutrophil # 3.84 X10^3/uL (2.7-7.7)
[2020-12-02 13:32] LABS: Vitamin D,25 Hydroxy 58.2 ng/mL
[2020-12-02 13:46] LABS: ALB/GLOB Ratio 0.9 RATIO (0.9-2.4); AST(SGOT) 28 U/L (15-37); Alanine Aminotransfer ALT/SGPT 22 U/L (13-56); Albumin, Serum 3.2 g/dL (3.2-5.0); Alkaline Phosphatase 107 U/L (45-117); Anion Gap 8 (5-15); BUN 14 mg/dL (7-18); BUN/Creat Ratio 23.3 RATIO (10-20); Calcium,Total 8.9 mg/dL (8.5-10.1); Chloride 109 mmol/L (98-107); EST Glomerular Filtration Rate 105 mL/min (>60); Est Glom Filt Rate - Afr Amer 127 mL/min (>60); Globulin 3.7 g/dL (2.2-4.2); Glucose 91 mg/dL (74-106); Potassium 3.9 mmol/L (3.5-5.1); Protein, Total 6.9 g/dL (6.4-8.2); Sodium Level 140 mmol/L (136-145); Thyroid Stim Hormone (TSH) 4.43 uIU/mL (0.358-3.74)
== END ==
PROVIDERS: PCP Family Medicine Geriatric Medicine; Visit Provider Family Medicine Geriatric Medicine
DX: R53.83 Other fatigue (principal); E55.9 Vitamin D deficiency, unspecified
CPT/HCPCS: 36415; 80053; 82306; 84443; 85025

== ENCOUNTER 2021-01-21 08:37 | Emergency (ER) | payer MEDICARE, SELFPAY ==
[2018-10-17 17:12] VITALS: BMI 31.1
[2021-01-21 08:41] VITALS: BP 137/61; PULSE 61; RESP 16; TEMP 36.2; O2SAT 99; BMI 21.4
--- NOTE | 2021-01-21 09:14 | ED.VIS.GEN ---
History of Present Illness Chief Complaint: Rash Informant: Patient Narrative: 70-year-old female presenting with rash on the right ribs both posterior lateral and anterior. She states is been here for a couple of weeks. She does not have any systemic signs or symptoms. Other than this he only has symptoms of depression for which she takes medication for she also takes vitamins. She is not had a fever, chills. Her rash now appears to be a little bit weepy. She is describes it as burning. He states that she drinks too much. She states she is not had a drink in 4 days. She is unsure she was hospitalized for detox. Patient states is not having withdrawal symptoms. Her rash now appears to be a little bit weepy. She is describes it as burning. - Past Medical History (1) AA (alcohol abuse) Status: Chronic (2) GI bleed Status: Chronic (3) Hyperlipidemia Status: Chronic (4) Hypothyroidism Status: Chronic Past Medical History - Allergies and Home Meds Allergies/Adverse Reactions: Allergies No Known Allergies Allergy (Verified 01/21/21 08:38) Primary Care Physician: Khai Palacios Chi, MD [Primary Care Provider] - Prior records reviewed: Yes Past Medical History: - - Reviewed in problem list Surgical History: no surgical history Lives: Alone Smoking Status: Current some day smoker Alcohol: Sober Drugs: None - Family History Paternal Family History: Reports: Heart Disease Maternal Family History: Reports: Heart Disease Review of Systems General: Denies: Chills, Fever, Sweats Eyes: Denies: Visual changes - bilaterally, Diplopia ENT: Denies: Rhinorrhea, Sore throat Cardiovascular: Denies: Chest pain, Palpitations Respiratory: Denies: Dyspnea, Cough, Dyspnea on exertion Gastrointestinal: Denies: Abdominal pain, Nausea, Vomiting, Diarrhea, Melena, Hematochezia Genitourinary: Denies: Dysuria, Hematuria, Frequency Musculoskeletal: Denies: Back pain, Extremity Pain Skin: Reports: Rash - Rash on right ribs Neurological: Denies: Headache, Weakness, Numbness Psych: Denies: Depression, Anxiety, Suicidal thoughts, Suicidal ideations, -, - Physical Exam Vital Signs/Narrative: Vital Signs Temp Pulse Resp BP Pulse Ox 01/21/21 08:41 97.2 F L 61 16 137/61 H 99 Inital Vital Signs reviewed: Yes General: Well nourished, No Acute Distress Head: Normocephalic, Atraumatic Eyes: Perrl, EOMI ENT: Moist mucous membranes, No rhinorrhea Cardiovascular: Regular rate, Regular rhythm Respiratory: No distress, CTA bilaterally Extremities: Nontender, No edema Skin: Rash - Erythematous rash on the upper and lower right thorax spanning across the lateral aspect of the ribs to the posterior axillary line. There is no crepitance palpated. Some areas have some weeping. Neurological: Alert, Oriented x3 Psychological: Normal affect, Normal Mood Diagnostic/Tx/Re-eval - Medical Decision Making 70-year-old female presenting for rash. States has been here for about a month worse over the last couple weeks. She denies systemic signs or symptoms. She is not been on any antibiotics yet. We will start her on Bactrim and Keflex with the first dose in the ED. Patient can return precautions. Patient over discharge at this time. Impression: 1. Cellulitis ED Disposition - Plan for ED Patient: Disposition: Home or Assisted Living Instructions: Cellulitis Prescriptions: Smz/Tmp Ds [Bactrim Ds] 1 tablet PO BID #14 tab Prescription Printed Cephalexin [Keflex] 250 mg PO Q6 #40 capsule Prescription Printed Referrals: Khai Palacios Chi, MD [Primary Care Provider] -
[2021-01-21] MEDS: Smz/Tmp Ds Tablet 1 TABLET PO (09:28)
[2021-01-21] MEDS: Cephalexin 250 MG Capsule 500 MG PO (09:28)
[2021-01-21 09:31] VITALS: RESP 16
== END 2021-01-21 09:33 | disposition home or self-care (01) ==
LOC: ED 09:24
PROVIDERS: Emergency Provider Student in an Organized Health Care Education/Training Program; PCP Family Medicine Geriatric Medicine
DX: L03.313 Cellulitis of chest wall (principal); F10.10 Alcohol abuse, uncomplicated; E03.9 Hypothyroidism, unspecified; E78.5 Hyperlipidemia, unspecified; F32.9 Major depressive disorder, single episode, unspecified; Z87.19 Personal history of other diseases of the digestive system; Z79.899 Other long term (current) drug therapy
CPT/HCPCS: 99283

== ENCOUNTER 2021-01-22 11:26 | Emergency (ER) | payer MEDICARE, SELFPAY ==
[2021-01-21 08:41] VITALS: BMI 21.4
[2021-01-22] VITALS (8 sets, daily range): BP systolic 105–162; BP diastolic 72–89; PULSE 111–149; RESP 15–20; TEMP 36.1–37.2; O2SAT 97–99; BMI 23.8
--- NOTE | 2021-01-22 11:54 | EKG12_ITS ---
Test Reason : TACHYCARDIA Blood Pressure : / mmHG Vent. Rate : 141 BPM Atrial Rate : 141 BPM P-R Int : 126 ms QRS Dur : 082 ms QT Int : 296 ms P-R-T Axes : 066 -13 076 degrees QTc Int : 453 ms Sinus tachycardia Otherwise normal ECG Confirmed by DAKOTAH LUCIANO, MARILIA ([id number]), editor managing director KAELA ROBERTS ([id number]) on 01/25/2021 10:58:05 AM Referred By: BB Confirmed By:MARILIA CLAIRE MD
--- NOTE | 2021-01-22 11:55 | CT_ITS ---
We are attempting to reach an attending provider to discuss findings. An addendum with communication details will be sent when the communication is complete. STUDY: CT BRAIN WITHOUT CONTRAST REASON FOR EXAM: Female, 70 years old. Confusion. RADIATION DOSAGE (If Supplied By Facility): CTDIvol = ( 44.99 ) mGy, DLP = ( 779.24 ) mGycm TECHNIQUE: Transaxial CT imaging of the brain was performed without administration of intravenous contrast material. Coronal and sagittal reconstructions were performed. Individualized dose optimization techniques were used for this CT. COMPARISON: CT head without contrast 10/14/2012. FINDINGS: Normal soft tissue structures. Normal calvarium. 2.6 mm isodense subdural hematoma overlying the left cerebral hemisphere without any mass effects due to underlying cerebral cortical atrophy. No midline shift. Normal ventricles and cisterns. Normal white matter tracts of the cerebral hemispheres. Normal basal ganglia and thalami. Normal brainstem. Normal cerebellum. There is no intracranial hemorrhage. There are no findings of an acute ischemic infarction. Normal visualized paranasal sinuses. CT/Brain/Head without Contrast IMPRESSION: 1. 2.6 isodense subdural hematoma overlying the left cerebral hemisphere without any significant mass effects on the underlying atrophic brain parenchyma. This is most likely subacute subdural hematoma (10-21 days old). 2. No CT evidence of intraparenchymal bleeding and no acute subarachnoid hemorrhage. 3. No other additional findings or changes when compared to 10/14/2012. Electronically Signed: Titus Bucio MD at 13:12 EDT , Service support ,
--- NOTE | 2021-01-22 11:57 | ED.DCSUM_ITS ---
History of Present Illness Chief Complaint: Cellulitis Informant: Patient, Family Onset: Weeks - 1 Context: Gradual Onset Timing: Continuous Quality: Painful and burning Location: Started right inframammary/abdomen, now right chest and shoulder and back Current Severity: Severe Maximum Severity: Severe Worsened by: Palpation Relieved by: Nothing Associated Symptoms: Feels poorly today Narrative: Patient brought in by her sister for rash that is worsening. She was seen here yesterday for the same thing and prescribed antibiotics, sister agreeing that it was not nearly this bad yesterday and she was not feeling poorly. She was prescribed 2 antibiotics that she did not fill or take, she thought they were sent electronically and went to the pharmacy but they did not have anything and then she found the paper prescriptions and still has not gotten them filled. Initially, she told physician yesterday that this has been present for weeks, now she says may be a week but she is really unsure. Apparently the patient is an alcoholic who lives alone. Her sister accompanies her and states that she has been trying to take guardianship of her says that she can force her into rehab. She talked to her adhesive primer recently about this but it was the first time that he had seen her in over a year so he would not sign anything for it according to the sister at that time. She states that she had a fall and an intracerebral hemorrhage in October, was transferred to [place], upon coming home she and her sister and other family members became ill and all tested positive for Covid. She recovered from that except she has persistent loss of taste and smell but no other residual Covid symptoms. She is still having vertiginous dizziness from the head injury and some disorientation on occasion. Headaches have resolved. She was in outpatient alcohol rehab, she was released maybe 2 weeks ago, and since then she went to a gas station and then passed out and was admitted somewhere apparently for observation overnight. She states they did a CT that showed residual blood but nothing new. She relapsed and went to a gas station and bought alcohol yesterday and drank, but none since. Her sister states that this was the first time she told her that with regards to alcohol she felt like she did not have any control and was relatively scared. She has had no definite fevers or chills, shortness of breath, chest pain, abdominal pain except for soreness where the rashes she denies any other symptoms. - Past Medical History (1) Anxiety Status: Chronic (2) AA (alcohol abuse) Status: Chronic (3) Hypothyroidism Status: Chronic (4) Hyperlipidemia Status: Chronic Past Medical History - Allergies and Home Meds Allergies/Adverse Reactions: Allergies No Known Allergies Allergy (Verified 01/22/21 11:31) Primary Care Physician: Khai Palacios Chi, MD [Primary Care Provider] - Surgical History: no surgical history Smoking Status: Current every day smoker Alcohol: Heavy - not recently; no alcohol x 2 wks except for a bottle of vodka yesterday - Family History Paternal Family History: Reports: Heart Disease Maternal Family History: Reports: Heart Disease Review of Systems General: Reports: Malaise. Denies: Chills, Fever, Sweats Eyes: Denies: Visual changes - bilaterally, Diplopia ENT: Denies: Bilateral ear pain, Rhinorrhea, Sore throat Cardiovascular: Reports: Chest pain - Due to rash. Denies: Palpitations Respiratory: Denies: Dyspnea, Cough, Dyspnea on exertion Gastrointestinal: Reports: Abdominal pain - Due to rash. Denies: Nausea, Vomiting, Diarrhea, Melena, Hematochezia Genitourinary: Denies: Dysuria, Hematuria, Frequency Musculoskeletal: Reports: Neck pain - Due to rash, Back pain - Due to rash, Extremity Pain - Due to rash on right shoulder Skin: Reports: Rash. Denies: Wounds Neurological: Denies: Headache, Weakness, Numbness Psych: Reports: - - Some visual hallucinations yesterday. Denies: Suicidal thoughts Physical Exam Vital Signs/Narrative: Vital Signs Temp Pulse Resp BP Pulse Ox 01/22/21 11:31 99 F 149 H 18 132/72 H 99 Inital Vital Signs reviewed: Yes General: Well nourished, Well developed, No Acute Distress Head: Normocephalic, Atraumatic Eyes: Perrl, EOMI ENT: Moist mucous membranes, No rhinorrhea Neck: Supple, Nontender, No lymphadenopathy Cardiovascular: Regular rate, Regular rhythm, No murmurs, Tachycardia Respiratory: No distress, CTA bilaterally, Chest tenderness - And distribution of rash right side, - - Limited ability to check for axillary lymphadenopathy due to pain/tenderness Abdomen: Soft, Nontender, Nondistended, Normal bowel sounds : - - External exam is normal. On speculum exam, there is a scant amount of normal-appearing thin discharge, no purulent discharge or erythema/tenderness. Pessary in place, with holes intact and no discharge. Back: Nontender - except for rash area, Normal Inspection Extremities: No edema, Tenderness - And distribution of rash that is in the underside of her right upper arm Skin: No Trauma, Rash - Diffuse rash right flank but mostly entire right chest, involving some of the breast, inframammary into the right upper quadrant, over the right shoulder and into the upper back, including multiple areas of sloughing and several small areas of erythema dense and almost purpuric., - - Large denuded areas on her back. Negative Nikolsky sign. Progressing into her right upper arm which it was not yesterday. Neurological: Alert, Cranial nerves II-XII grossly intact, Normal Strength, Norm al Sensation Psychological: Normal affect, Normal Mood Diagnostic/Tx/Re-eval Impressions Brain CT 01/22/21 11:55 IMPRESSION: 1. 2.6 isodense subdural hematoma overlying the left cerebral hemisphere without any significant mass effects on the underlying atrophic brain parenchyma. This is most likely subacute subdural hematoma (10-21 days old). 2. No CT evidence of intraparenchymal bleeding and no acute subarachnoid hemorrhage. 3. No other additional findings or changes when compared to 10/14/2012. Electronically Signed: Titus Bucio MD at 13:12 EDT , Service support , ADDENDUM: 01/22/21 1332 N.B. : The above information has been verbally conveyed by Titus Bucio MD to Tigre Mullen MD, on 01/22/2021 13:25:53 (ET). Electronically Signed: Titus Bucio MD at 13:12 EDT , Service support , 01/22/21 11:55 Brain/Head without Contrast [CT] Stat 01/22/21 13:45 Mucosa - Nose SARS-CoV-2 Antigen (Rapid) - Final Laboratory Results 01/22/21 01/22/21 01/22/21 11:45 11:45 11:45 WBC 13.5 H RBC 4.14 L Hgb 13.4 Hct 39.7 MCV 95.9 MCH 32.4 H MCHC 33.8 RDW Std Deviation 44.7 H RDW Coeff of Melany 12.7 Plt Count 232 MPV 10.5 Immature Gran % (Auto) 0.500 Neut % (Auto) 84.3 H Lymph % (Auto) 8.2 L Leslie % (Auto) 6.5 Eos % (Auto) 0.1 Baso % (Auto) 0.4 Absolute Neuts (auto) 11.4 H Absolute Lymphs (auto) 1.10 Nucleated RBC % 0 PT 13.6 INR 1.1 APTT 26.6 Fibrinogen 796 H D-Dimer Quant (PE/DVT) 9.30 H* Sodium 131 L Potassium 3.4 L Chloride 98 Carbon Dioxide 25.0 Anion Gap 8 BUN 12 Creatinine 0.70 Estim Creat Clear Calc 45.85 Est GFR (MDRD) Af Amer 107 Est GFR (MDRD) Non-Af 88 BUN/Creatinine Ratio 17.2 Glucose 148 H Lactic Acid Calcium 9.0 Total Bilirubin 0.90 AST 28 ALT 21 Alkaline Phosphatase 75 Total Creatine Kinase 66 Total Protein 6.7 Albumin 2.8 L Globulin 3.9 Albumin/Globulin Ratio 0.7 L Urine Color Urine Clarity Urine pH Ur Specific [place] Urine Protein Urine Glucose (UA) Urine Ketones Urine Occult Blood Urine Nitrite Urine Bilirubin Urine Urobilinogen Ur Leukocyte Esterase Urine RBC Urine WBC Ur Squamous Epith Cells Urine Bacteria Urine Mucus Urine Opiates Screen Urine Methadone Screen Ur Barbiturates Screen Ur Phencyclidine Scrn Ur Amphetamines Screen U Methamphetamin-MDMA U Benzodiazepines Scrn Urine Cocaine Screen U Cannabinoids Screen Ur Drug Screen Comment Ethyl Alcohol 01/22/21 01/22/21 01/22/21 11:45 12:10 12:10 WBC RBC Hgb Hct MCV MCH MCHC RDW Std Deviation RDW Coeff of Melany Plt Count MPV Immature Gran % (Auto) Neut % (Auto) Lymph % (Auto) Leslie % (Auto) Eos % (Auto) Baso % (Auto) Absolute Neuts (auto) Absolute Lymphs (auto) Nucleated RBC % PT INR APTT Fibrinogen D-Dimer Quant (PE/DVT) Sodium Potassium Chloride Carbon Dioxide Anion Gap BUN Creatinine Estim Creat Clear Calc Est GFR (MDRD) Af Amer Est GFR (MDRD) Non-Af BUN/Creatinine Ratio Glucose Lactic Acid 2.0 Calcium Total Bilirubin AST ALT Alkaline Phosphatase Total Creatine Kinase Total Protein Albumin Globulin Albumin/Globulin Ratio Urine Color Yellow Urine Clarity Sl. Cloudy Urine pH 6.0 Ur Specific [place] 1.015 Urine Protein 15 H Urine Glucose (UA) Normal Urine Ketones 5 H Urine Occult Blood Negative Urine Nitrite Negative Urine Bilirubin Negative Urine Urobilinogen 4 H Ur Leukocyte Esterase 100 H Urine RBC 0 SEEN Urine WBC 0-5 SEEN Ur Squamous Epith Cells 0-5 SEEN Urine Bacteria 0 SEEN Urine Mucus 0 SEEN Urine Opiates Screen NEGATIVE Urine Methadone Screen NEGATIVE Ur Barbiturates Screen NEGATIVE Ur Phencyclidine Scrn NEGATIVE Ur Amphetamines Screen NEGATIVE U Methamphetamin-MDMA NEGATIVE U Benzodiazepines Scrn POSITIVE H Urine Cocaine Screen NEGATIVE U Cannabinoids Screen NEGATIVE Ur Drug Screen Comment Ethyl Alcohol 01/22/21 12:25 WBC RBC Hgb Hct MCV MCH MCHC RDW Std Deviation RDW Coeff of Melany Plt Count MPV Immature Gran % (Auto) Neut % (Auto) Lymph % (Auto) Leslie % (Auto) Eos % (Auto) Baso % (Auto) Absolute Neuts (auto) Absolute Lymphs (auto) Nucleated RBC % PT INR APTT Fibrinogen D-Dimer Quant (PE/DVT) Sodium Potassium Chloride Carbon Dioxide Anion Gap BUN Creatinine Estim Creat Clear Calc Est GFR (MDRD) Af Amer Est GFR (MDRD) Non-Af BUN/Creatinine Ratio Glucose Lactic Acid Calcium Total Bilirubin AST ALT Alkaline Phosphatase Total Creatine Kinase Total Protein Albumin Globulin Albumin/Globulin Ratio Urine Color Urine Clarity Urine pH Ur Specific [place] Urine Protein Urine Glucose (UA) Urine Ketones Urine Occult Blood Urine Nitrite Urine Bilirubin Urine Urobilinogen Ur Leukocyte Esterase Urine RBC Urine WBC Ur Squamous Epith Cells Urine Bacteria Urine Mucus Urine Opiates Screen Urine Methadone Screen Ur Barbiturates Screen Ur Phencyclidine Scrn Ur Amphetamines Screen U Methamphetamin-MDMA U Benzodiazepines Scrn Urine Cocaine Screen U Cannabinoids Screen Ur Drug Screen Comment Ethyl Alcohol < 3.0 - Rhythm Strip Rhythm Strip: Sinus Tach Rate: 148 - EKG Initial EKG Interpretation: No Acute Injury Pattern, Sinus Tachycardia - Medical Decision Making Differential here includes staphylococcal scalded skin syndrome, Petersen-Catrachito syndrome, toxic shock syndrome, disseminated zoster, bullous impetigo, possibly other infections as well; less likely to be [id number] rash. Septic work-up is entertained especially given a resting tachycardia, and after cultures were obtained she was immediately given a dose of Unasyn which is less likely to give her an autoimmune reaction. I was working today with Dr. Johnson who did stop by and see the patient, admitting that this is much worse than it was yesterday, and they are indeed was no skin sloughing or denuded areas present yesterday, nor did the patient have a resting tachycardia or appear ill as she does today. I discussed all this with Dr. Somers with dermatology, and securely sent him pictures of the patient after obtaining her permission. He states based on this body surface area involvement and large areas of denuded skin, this patient should be transferred to an adult center that has burn capability. She does qualify for sepsis although clinically she is relatively well just very tachycardic. She was given a Maury for the pain she is having which helped and subsequently she started having some itching in these areas, which resulted in more superficial sloughing. Dr. Somers is leaning more toward disseminated zoster here given that it really wants to stay on the right side, but agrees with the above differential and Unasyn. Since the areas on her back are already largely denuded, he advises holding off on steroids until she gets to tertiary care. Patient is mostly mentating normally but since she was wrong about the month and not quite as sharp as she was a month ago and the other day had some visual hallucinations according to sister, I did repeat her head CT. It showed subacute subdural, but nothing acute. Her D-dimer significantly elevated but her fibrinogen is also elevated, possibly acute phase reactant but her coags are normal and this is inconsistent with DIC. I am not concerned about a pulmonary embolus given her lack of symptoms, and that was not the purpose of the test. I did evaluate her pessary to rule out an abscess/purulent discharge, making toxic shock syndrome much less likely. I did do a rapid Covid to confirm that it was negative which it is, only because she is requiring transfer. She remained clinically and hemodynamically stable in the emergency department, her heart rate came down to around 120 with fluids, antibiotics, pain control. Discussed with [facility] in [place]. Floor hospitalist preferred pt to go to step down unit. Accepted by Dr. Villa. ED Disposition - Plan for ED Patient: Disposition: Acute Care Hospital - Other Diagnosis: Denuded skin, Bullous rash, Sepsis Referrals: Khai Palacios Chi, MD [Primary Care Provider] -
[2021-01-22] MEDS: 0.9% Normal Saline 1,000 ML 999 ML IV (12:11)
[2021-01-22 12:16] LABS: Bacteria 0 SEEN /hpf (None Seen); Mucous, Urine 0 SEEN /hpf (<or=2+); Red Blood Cells-Urine 0 SEEN /hpf (0-5)
[2021-01-22 12:25] LABS: Absolute Neutrophil Count 11.4 X10^3/uL (2.0-7.7); Basophil# 0.06 X10^3/uL; Basophil% 0.4 % (0-1); Eosinophil# 0.02 X10^3/uL; Eosinophils% 0.1 % (0-5); Hematocrit 39.7 % (37-47); Hemoglobin 13.4 g/dL (12.0-15.0); Lymphocyte % 8.2 % (19-41); Mean Corp Hgb Conc 33.8 g/dL (32-36); Mean Corpuscular Hgb 32.4 pg (27.0-32.0); Mean Corpuscular Volume 95.9 fL (81-99); Mean Platelet Vol. 10.5 fl (6.2-12.0); Monocyte# 0.88 X10^3/uL; Monocyte% 6.5 % (0-10); NRBC Flagged by Analyzer 0 % (0-5); Neutrophil # 11.35 X10^3/uL (2.7-7.7); Neutrophil % 84.3 % (47-70); Platelet Count 232 K/mm3 (150-450); RBC Distribution Width CV 12.7 % (11.6-14.6); RBC Distribution Width SD 44.7 fl (35.1-43.9); Red Blood Count 4.14 M/mm3 (4.2-5.4); White Blood Count 13.5 K/mm3 (4.4-11.0)
[2021-01-22 12:30] LABS: International Normalized Ratio 1.1; Prothrombin Time (Protime)PT. 13.6 SECONDS (11.7-14.9)
[2021-01-22 12:31] LABS: Fibrinogen 796 mg/dl (203-444); Partial Thromboplast Time 26.6 Seconds (24.1-36.2)
[2021-01-22 12:32] LABS: Color, Urine Yellow (Yellow); Glucose, Dipstick Normal (Normal); Ketone-Dipstick 5 mg/dl (Negative); Leukocyte Esterase-Dipstick 100 /ul (Negative); Nitrite-Dipstick Negative (Negative); Occult Blood-Urine Negative /ul (Negative); Protein-Dipstick 15 mg/dl (Negative); Specific Gravity, Urine 1.015 (1.002-1.030); Urine Bilirubin Dipstick Negative (Negative); Urine Clarity Sl. Cloudy (Clear); Urine Urobilinogen 4 mg/dl (Normal)
[2021-01-22 12:38] LABS: Squamous Epithelial Cells - UA 0-5 SEEN /hpf (5-10); White Blood Cells 0-5 SEEN /hpf (0-5)
[2021-01-22 12:43] LABS: Amphetamine Urine VISTA NEGATIVE (<1000 ng/mL); Barbiturate Urine VISTA NEGATIVE (< 200 ng/mL); Benzodiazepine Urine VISTA POSITIVE (< 200 ng/mL); Cocaine Urine VISTA NEGATIVE (< 300 ng/mL); Ecstacy Urine VISTA NEGATIVE (< 500 ng/mL); Methadone Urine VISTA NEGATIVE (< 300 ng/mL); PCP Urine VISTA NEGATIVE (< 25 ng/mL); THC Urine VISTA NEGATIVE (< 50 ng/mL); Vista UDS pH Range 6
[2021-01-22 12:44] LABS: ALB/GLOB Ratio 0.7 RATIO (0.9-2.4); AST(SGOT) 28 U/L (15-37); Alanine Aminotransfer ALT/SGPT 21 U/L (13-56); Albumin, Serum 2.8 g/dL (3.2-5.0); Alkaline Phosphatase 75 U/L (45-117); Anion Gap 8 (5-15); BUN 12 mg/dL (7-18); BUN/Creat Ratio 17.2 RATIO (10-20); CPK Total, Creatine Kinase 66 U/L (26-192); Chloride 98 mmol/L (98-107); EST Glomerular Filtration Rate 88 mL/min (>60); Est Glom Filt Rate - Afr Amer 107 mL/min (>60); Estimated Creatinine Clearance 45.85 ml/min; Globulin 3.9 g/dL (2.2-4.2); Glucose 148 mg/dL (74-106); Potassium 3.4 mmol/L (3.5-5.1); Protein, Total 6.7 g/dL (6.4-8.2); Sodium Level 131 mmol/L (136-145)
[2021-01-22 13:02] LABS: Alcohol, Blood (Medical)-Serum < 3.0 mg/dL
[2021-01-22] MEDS: HYDROcodone Bitartrate/Apap 5/325 Tablet PO ×2 (13:27→19:41)
[2021-01-22 16:01] LABS: Reflex Lactate? Y
--- NOTE | 2021-01-22 16:46 | NURSING ---
PER CARLIN WITH [facility]. HE HAS PAGED OUT FOR THE DR 3X. HE WILL CALL US THE MINUTE HE GETS A HOLD OF THEM
[2021-01-22 17:00] LABS: Lactic Acid 1.1 mmol/L (0.4-1.9)
--- NOTE | 2021-01-22 17:47 | ED.RN ---
[facility] ACCEPTED PT BUT IS STILL WAITING FOR A BED TO OPEN UP PER DR MARLEY
--- NOTE | 2021-01-22 18:20 | ED.RN ---
PER DR AYAKA HAJI HAS ACCEPTED PT BUT THEY STATED IT MAY BE A FEW HOURS BEFORE THEY HAVE A BED
--- NOTE | 2021-01-22 20:49 | ED.RN ---
CALLED [facility] THE ETA WOULD BE 60-90 MINUTES FROM 2048
--- NOTE | 2021-01-22 21:38 | ED.RN ---
called sister, Suni to inform of time of transfer planned.
== END 2021-01-22 22:20 | disposition short-term general hospital (02) ==
PROVIDERS: Emergency Provider Emergency Medicine; PCP Family Medicine Geriatric Medicine
DX: A41.9 Sepsis, unspecified organism (principal); R23.8 Other skin changes; E03.9 Hypothyroidism, unspecified; E78.5 Hyperlipidemia, unspecified; F41.9 Anxiety disorder, unspecified; F10.20 Alcohol dependence, uncomplicated; Z79.899 Other long term (current) drug therapy; F17.200 Nicotine dependence, unspecified, uncomplicated
CPT/HCPCS: 70450; 80053; 80307; 81001; 82077; 82550; 83605; 85025; 85379; 85384; 85610; 85730; 87040; 87426; 93005; 99285; J7030; A4216; J0295

== ENCOUNTER → 2021-02-22 14:22 | Outpatient (CLI) | payer MEDICARE, SELFPAY ==
[2021-01-22 11:31] VITALS: BMI 23.8
[2021-02-22 17:02] LABS: Absolute Lymphocyte Count 1.95 X10^3/uL (0.83-4.51); Absolute Neutrophil Count 1.9 X10^3/uL (2.0-7.7); Basophil# 0.08 X10^3/uL; Basophil% 1.8 % (0-1); Eosinophil# 0.03 X10^3/uL; Eosinophils% 0.7 % (0-5); Hemoglobin 11.8 g/dL (12.0-15.0); Lymphocyte # 1.95 X10^3/ul (0.83-4.51); Lymphocyte % 42.7 % (19-41); Mean Corp Hgb Conc 31.1 g/dL (32-36); Mean Corpuscular Hgb 31.1 pg (27.0-32.0); Mean Corpuscular Volume 100.3 fL (81-99); Monocyte# 0.57 X10^3/uL; Monocyte% 12.5 % (0-10); NRBC Flagged by Analyzer 0 % (0-5); Neutrophil # 1.93 X10^3/uL (2.7-7.7); Neutrophil % 42.1 % (47-70); Platelet Count 240 K/mm3 (150-450); RBC Distribution Width SD 51.3 fl (35.1-43.9); Red Blood Count 3.79 M/mm3 (4.2-5.4); White Blood Count 4.6 K/mm3 (4.4-11.0)
[2021-02-22 17:32] LABS: ALB/GLOB Ratio 0.9 RATIO (0.9-2.4); AST(SGOT) 24 U/L (15-37); Alanine Aminotransfer ALT/SGPT 20 U/L (13-56); Albumin, Serum 3.1 g/dL (3.2-5.0); Alkaline Phosphatase 86 U/L (45-117); Anion Gap 7 (5-15); BUN 14 mg/dL (7-18); BUN/Creat Ratio 21.6 RATIO (10-20); Calcium,Total 8.7 mg/dL (8.5-10.1); Chloride 107 mmol/L (98-107); Creatinine, Serum 0.65 mg/dL (0.55-1.02); EST Glomerular Filtration Rate 96 mL/min (>60); Est Glom Filt Rate - Afr Amer 116 mL/min (>60); Globulin 3.3 g/dL (2.2-4.2); Glucose 86 mg/dL (74-106); Potassium 3.9 mmol/L (3.5-5.1); Protein, Total 6.4 g/dL (6.4-8.2); Sodium Level 141 mmol/L (136-145)
== END ==
PROVIDERS: PCP Family Medicine Geriatric Medicine
DX: E86.0 Dehydration (principal)
CPT/HCPCS: 36415; 80053; 85025

== ENCOUNTER → 2021-03-06 15:51 | Outpatient (CLI) | payer MEDICARE, SELFPAY ==
[2021-01-22 11:31] VITALS: BMI 23.8
[2021-03-06 17:23] LABS: Absolute Lymphocyte Count 1.02 X10^3/uL (0.83-4.51); Basophil# 0.08 X10^3/uL; Eosinophil# 0.01 X10^3/uL; Eosinophils% 0.1 % (0-5); Hematocrit 40.9 % (37-47); Hemoglobin 13.5 g/dL (12.0-15.0); Lymphocyte # 1.02 X10^3/ul (0.83-4.51); Lymphocyte % 13.2 % (19-41); Mean Corpuscular Hgb 31.8 pg (27.0-32.0); Mean Corpuscular Volume 96.5 fL (81-99); Mean Platelet Vol. 10.6 fl (6.2-12.0); Monocyte# 0.63 X10^3/uL; Monocyte% 8.2 % (0-10); NRBC Flagged by Analyzer 0 % (0-5); Neutrophil # 5.95 X10^3/uL (2.7-7.7); Platelet Count 244 K/mm3 (150-450); RBC Distribution Width CV 13.8 % (11.6-14.6); Red Blood Count 4.24 M/mm3 (4.2-5.4); White Blood Count 7.7 K/mm3 (4.4-11.0)
[2021-03-06 17:51] LABS: ALB/GLOB Ratio 0.8 RATIO (0.9-2.4); AST(SGOT) 38 U/L (15-37); Alanine Aminotransfer ALT/SGPT 20 U/L (13-56); Albumin, Serum 3.6 g/dL (3.2-5.0); Alkaline Phosphatase 122 U/L (45-117); Anion Gap 9 (5-15); BUN 12 mg/dL (7-18); BUN/Creat Ratio 13.5 RATIO (10-20); Calcium,Total 9.9 mg/dL (8.5-10.1); Chloride 100 mmol/L (98-107); Cholesterol 334 mg/dL (200); Creatinine, Serum 0.89 mg/dL (0.55-1.02); EST Glomerular Filtration Rate 67 mL/min (>60); Est Glom Filt Rate - Afr Amer 81 mL/min (>60); Globulin 4.3 g/dL (2.2-4.2); Glucose 129 mg/dL (74-106); High Density Lipoprotein 104 mg/dL; Potassium 3.7 mmol/L (3.5-5.1); Protein, Total 7.9 g/dL (6.4-8.2); Sodium Level 134 mmol/L (136-145); Thyroid Stim Hormone (TSH) 0.35 uIU/mL (0.358-3.74); Triglycerides 155 mg/dL; Very Low Density Lipoprotein 31 mg/dL (5-40)
[2021-03-09 12:47] LABS: Vitamin D,25 Hydroxy 88.1 ng/mL
== END ==
PROVIDERS: PCP Family Medicine Geriatric Medicine; Visit Provider Family Medicine Geriatric Medicine
DX: E78.5 Hyperlipidemia, unspecified (principal); E55.9 Vitamin D deficiency, unspecified; R53.83 Other fatigue
CPT/HCPCS: 36415; 80053; 80061; 82306; 84443; 85025

== ENCOUNTER 2021-03-09 12:37 | Emergency (ER) | payer MEDICARE, SELFPAY ==
[2021-01-22 11:31] VITALS: BMI 23.8
[2021-03-09] VITALS (11 sets, daily range): BP systolic 93–129; BP diastolic 53–72; PULSE 72–94; RESP 10–20; TEMP 36.6; O2SAT 94–98; BMI 23.0
--- NOTE | 2021-03-09 12:44 | EKG12_ITS ---
Test Reason : POSSIBLE OVERDOSE Blood Pressure : / mmHG Vent. Rate : 079 BPM Atrial Rate : 079 BPM P-R Int : 142 ms QRS Dur : 100 ms QT Int : 408 ms P-R-T Axes : 053 -19 051 degrees QTc Int : 467 ms Normal sinus rhythm Normal ECG Confirmed by DAKOTAH LUCIANO, MARILIA ([id number]), index editor KAELA ROBERTS ([id number]) on 03/10/2021 10:21:18 AM Referred By: LORENA Confirmed By:MARILIA CLAIRE MD
--- NOTE | 2021-03-09 13:17 | RAD_ITS ---
STUDY: X-RAY CHEST REASON FOR EXAM: Female, 70 years old. Suspected overdose on prescription pills, found with emesis and unresponsive. Given intranasal narc. TECHNIQUE: Single AP portable view of the chest. COMPARISON: None. FINDINGS: EKG electrodes are seen. The lungs are clear and expanded. There is no demonstrated pleural abnormality. Normal size heart. Normal mediastinum and collins. Normal visualized pulmonary arteries. There is atherosclerotic calcification of the aortic arch with tortuosity. There are diffuse degenerative changes of the visualized thoracic spine. Healed right upper rib fractures. There is no demonstrated abnormality of the visualized soft tissue structures of the upper abdomen. RAD/Chest 1 View (Portable) IMPRESSION: No acute adenopathy is seen. Electronically Signed: Raymundo Aldrich MD at 14:25 EDT , Service support ,
[2021-03-09] MEDS: 0.9% Normal Saline 1,000 ML 150 ML IV (13:24)
[2021-03-09 13:53] LABS: Absolute Lymphocyte Count 2.21 X10^3/uL (0.83-4.51); Absolute Neutrophil Count 2.6 X10^3/uL (2.0-7.7); Basophil# 0.07 X10^3/uL; Basophil% 1.3 % (0-1); Eosinophil# 0.06 X10^3/uL; Eosinophils% 1.1 % (0-5); Hematocrit 44.8 % (37-47); Hemoglobin 14.4 g/dL (12.0-15.0); Lymphocyte # 2.21 X10^3/ul (0.83-4.51); Lymphocyte % 41.1 % (19-41); Mean Corp Hgb Conc 32.1 g/dL (32-36); Mean Corpuscular Hgb 31.5 pg (27.0-32.0); Mean Platelet Vol. 10.3 fl (6.2-12.0); Monocyte# 0.48 X10^3/uL; Monocyte% 8.9 % (0-10); NRBC Flagged by Analyzer 0 % (0-5); Neutrophil # 2.56 X10^3/uL (2.7-7.7); Neutrophil % 47.6 % (47-70); Platelet Count 203 K/mm3 (150-450); RBC Distribution Width CV 13.9 % (11.6-14.6); RBC Distribution Width SD 50.4 fl (35.1-43.9); Red Blood Count 4.57 M/mm3 (4.2-5.4); White Blood Count 5.4 K/mm3 (4.4-11.0)
[2021-03-09 14:07] LABS: ALB/GLOB Ratio 0.8 RATIO (0.9-2.4); AST(SGOT) 20 U/L (15-37); Alanine Aminotransfer ALT/SGPT 18 U/L (13-56); Albumin, Serum 3.4 g/dL (3.2-5.0); Alkaline Phosphatase 111 U/L (45-117); Anion Gap 8 (5-15); BUN 8 mg/dL (7-18); BUN/Creat Ratio 9.9 RATIO (10-20); Calcium,Total 9.3 mg/dL (8.5-10.1); Chloride 104 mmol/L (98-107); Creatinine, Serum 0.81 mg/dL (0.55-1.02); EST Glomerular Filtration Rate 75 mL/min (>60); Est Glom Filt Rate - Afr Amer 90 mL/min (>60); Estimated Creatinine Clearance 58.98 ml/min; Glucose 96 mg/dL (74-106); Protein, Total 7.4 g/dL (6.4-8.2); Sodium Level 143 mmol/L (136-145)
[2021-03-09 14:18] LABS: Amphetamine Urine VISTA NEGATIVE (<1000 ng/mL); Barbiturate Urine VISTA NEGATIVE (< 200 ng/mL); Benzodiazepine Urine VISTA NEGATIVE (< 200 ng/mL); Cocaine Urine VISTA NEGATIVE (< 300 ng/mL); Ecstacy Urine VISTA NEGATIVE (< 500 ng/mL); Methadone Urine VISTA NEGATIVE (< 300 ng/mL); PCP Urine VISTA NEGATIVE (< 25 ng/mL); THC Urine VISTA NEGATIVE (< 50 ng/mL); Vista UDS pH Range 7
[2021-03-09 14:24] LABS: Acetaminophen (Tylenol) Level < 2.0 ug/mL (10.0-30.0); Salicylate < 1.7 mg/dL (2.8-20.0)
--- NOTE | 2021-03-09 14:25 | CT_ITS ---
STUDY: CT BRAIN WITHOUT CONTRAST REASON FOR EXAM: Female, 70 years old. Confusion RADIATION DOSAGE (If Supplied By Facility): CTDIvol = ( 44.99 ) mGy, DLP = ( 779.24 ) mGycm TECHNIQUE: Transaxial CT imaging of the brain was performed without administration of intravenous contrast material. Individualized dose optimization techniques were used for this CT. COMPARISON: Comparison is made with prior study dated 01/22/2021. FINDINGS: Normal soft tissue structures. Normal calvarium. There is mild cerebral atrophy with widening of the extra-axial spaces and ventricular dilatation. Normal white matter tracts of the cerebral hemispheres. There are small punctate calcifications of the basal ganglia which are seen in the aging brain as a normal variant. Normal brainstem. There is mild cerebellar atrophy. The previously seen isodense left subdural hematoma has cleared. There are no findings of an acute ischemic infarction. Normal visualized paranasal sinuses. CT/Brain/Head without Contrast IMPRESSION: Chronic involutional changes of the brain. Electronically Signed: Raymundo Aldrich MD at 15:10 EDT , Service support ,
[2021-03-09 14:38] LABS: Bacteria 0 SEEN /hpf (None Seen); Mucous, Urine 0 SEEN /hpf (<or=2+); Red Blood Cells-Urine 0 SEEN /hpf (0-5)
[2021-03-09 14:44] LABS: Color, Urine Straw (Yellow); Glucose, Dipstick Normal (Normal); Ketone-Dipstick Negative (Negative); Leukocyte Esterase-Dipstick 25 /ul (Negative); Nitrite-Dipstick Negative (Negative); Occult Blood-Urine Negative /ul (Negative); Protein-Dipstick Negative (Negative); Specific Gravity, Urine 1.005 (1.002-1.030); Urine Bilirubin Dipstick Negative (Negative); Urine Clarity Clear (Clear); Urine Urobilinogen Normal (Normal)
[2021-03-09 14:50] LABS: Squamous Epithelial Cells - UA 0-5 SEEN /hpf (5-10); White Blood Cells 0-5 SEEN /hpf (0-5)
[2021-03-09 14:54] LABS: Thyroid Stim Hormone (TSH) 0.78 uIU/mL (0.358-3.74)
--- NOTE | 2021-03-09 16:34 | ED.RN ---
PER [facility], PT HAS BEEN AN ALCOHOLIC FOR THE PAST DECADE. THEY STATE PT HAS BEEN EVICTED FROM [place] HOTELS IN [place], HAS FAILED ATTEMPTS TO ALL LIVE WITH FAMILY, AND NOW HAS NOWHERE TO GO AFTER DISCHARGE OTHER THAN [place] [employer]. THEY STATE PT IS NON-COMPLIANT WITH ANY ATTEMPTS TO DETOX, OR TO IMPROVE HER LIVING SITUATION. THEY ALSO STATE PT ADMITTED TO NOT WANTING TO LIVE ANYMORE SEVERAL DAYS AGO. [facility]IST[facility] ARE PT'S PRIMARY CONTACT, THEY TAKE HER TO MEDICAL APPTS. 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 SISTERS BOTH STATE THEY FEEL PT WOULD BENEFIT FROM ADMISSION TO A PSYCHIATRIC FACILITY.
--- NOTE | 2021-03-09 17:02 | EX.ED.VIS.PS ---
HPI HPI - Psych History of Present Illness Chief Complaint: Overdose Narrative Narrative: Per EMS the patient was staying at a hotel and was found to be less responsive than usual. EMS was called and they found crushed pills at the bedside. They gave her a dose of Narcan and she is more alert and responsive than she was. Upon arrival to the emergency department the patient is clearly intoxicated. She has multiple pill bottles that are in disarray. PFSH PFS Home Medications duloxetine 60 mg PO DAILY 12/26/14 [History Last Taken 10/16/18] trazodone 100 mg PO QHS 12/26/14 [History Last Taken 10/15/18] levothyroxine 50 mcg PO DAILY 10/17/18 [History Last Taken 10/17/18] quetiapine 50 mg PO QHS 01/22/21 [History Last Taken Unknown] Allergy/AdvReac Type Severity Reaction Status Date / Time No Known Allergies Allergy Verified 03/09/21 12:41 Social History Smoking Status: Unknown if ever smoked ROS ROS ED Constitutional Constitutional ED: Denies chills, fever(s) or sweats Eyes Eyes: Denies change in vision ENT ENT ED: Denies sore throat Cardiovascular Cardiovascular: Denies chest pain Respiratory/Chest Respiratory/Chest: Denies cough, dyspnea or dyspnea on exertion Gastrointestinal Gastrointestinal: Denies abdominal pain, diarrhea, melena, nausea or vomiting Genitourinary Genitourinary ED: Denies dysuria or urinary frequency Musculoskeletal Musculoskeletal: Denies myalgias Integumentary Denies rash Neurologic Neurologic: Denies headache(s), paresthesias or weakness Psychiatric Psychiatric: Reports anxiety, depression, suicidal ideation and other EXAM Physical Exam Const Vital Signs: 03/09/21 12:37 03/09/21 12:50 03/09/21 13:39 Temperature 98 F Temperature Source Temporal Pulse Rate 83 79 76 Respiratory Rate 16 13 10 L Blood Pressure 93/53 L 104/64 100/64 Blood Pressure Mean 66 77 76 Pulse Ox 96 96 94 Oxygen Delivery Method Room Air Room Air Room Air 03/09/21 14:00 03/09/21 15:00 03/09/21 16:00 Temperature Temperature Source Pulse Rate 94 83 72 Respiratory Rate 18 20 H 16 Blood Pressure 108/68 104/72 106/67 Blood Pressure Mean 81 82 80 Pulse Ox 97 96 97 Oxygen Delivery Method Room Air Room Air Room Air Positive well nourished and well developed General Appearance ED: well developed HEENT normocephalic and atraumatic Eyes PERRL Neck no lymphadenopathy, supple and no JVD General: Negative for tenderness Chest Wall Chest: Negative for tenderness Resp clear to auscultation bilaterally Effort and Inspection: Negative for respiratory distress Cardio regular rate, regular rhythm and no murmurs GI normal to inspection, nondistended, normoactive bowel sounds, soft to palpation and non-tender GI Narrative: No guarding, rebound, or peritoneal signs. Back/Spine no thoracic nor lumbar tenderness Extremity General Extremety ED: Negative for edema or tenderness General Extremity: Negative for edema Neuro oriented x3, CN's II-XII intact bilaterally and no sensory deficits noted Sensorium / Orientation: awake and alert Motor Exam: strength 5/5 throughout Psych Psych Narrative: Mental status exam: Patient appears their stated age. Good posture and grooming. Good eye contact. Normal rate, volume, and latency of speech. No homicidal ideation. No auditory or visual hallucinations. Flow of thought is logical. Insight and judgment is fair. Skin no rashes or lesions noted MDM MDM Lab Data Labs: Laboratory Results - last 24 hr 03/09/21 03/09/21 03/09/21 13:00 13:42 13:42 WBC 5.4 RBC 4.57 Hgb 14.4 Hct 44.8 MCV 98.0 MCH 31.5 MCHC 32.1 RDW Std Deviation 50.4 H RDW Coeff of Melany 13.9 Plt Count 203 MPV 10.3 Immature Gran % (Auto) 0.000 Neut % (Auto) 47.6 Lymph % (Auto) 41.1 H [place] % (Auto) 8.9 Eos % (Auto) 1.1 Baso % (Auto) 1.3 H Absolute Neuts (auto) 2.6 Absolute Lymphs (auto) 2.21 Nucleated RBC % 0 Sodium 143 Potassium 3.0 L Chloride 104 Carbon Dioxide 31.0 Anion Gap 8 BUN 8 Creatinine 0.81 Estim Creat Clear Calc 58.98 Est GFR (MDRD) Af Amer 90 Est GFR (MDRD) Non-Af 75 BUN/Creatinine Ratio 9.9 L Glucose 96 Calcium 9.3 Total Bilirubin 0.20 AST 20 ALT 18 Alkaline Phosphatase 111 Total Protein 7.4 Albumin 3.4 Globulin 4.0 Albumin/Globulin Ratio 0.8 L TSH Urine Color Urine Clarity Urine pH Ur Specific [place] Urine Protein Urine Glucose (UA) Urine Ketones Urine Occult Blood Urine Nitrite Urine Bilirubin Urine Urobilinogen Ur Leukocyte Esterase Urine RBC Urine WBC Ur Squamous Epith Cells Urine Bacteria Urine Mucus Salicylates Urine Opiates Screen NEGATIVE Urine Methadone Screen NEGATIVE Acetaminophen Ur Barbiturates Screen NEGATIVE Ur Phencyclidine Scrn NEGATIVE Ur Amphetamines Screen NEGATIVE U Methamphetamin-MDMA NEGATIVE U Benzodiazepines Scrn NEGATIVE Urine Cocaine Screen NEGATIVE U Cannabinoids Screen NEGATIVE Ur Drug Screen Comment Ethyl Alcohol 03/09/21 03/09/21 03/09/21 13:42 13:42 13:50 WBC RBC Hgb Hct MCV MCH MCHC RDW Std Deviation RDW Coeff of Melany Plt Count MPV Immature Gran % (Auto) Neut % (Auto) Lymph % (Auto) [place] % (Auto) Eos % (Auto) Baso % (Auto) Absolute Neuts (auto) Absolute Lymphs (auto) Nucleated RBC % Sodium Potassium Chloride Carbon Dioxide Anion Gap BUN Creatinine Estim Creat Clear Calc Est GFR (MDRD) Af Amer Est GFR (MDRD) Non-Af BUN/Creatinine Ratio Glucose Calcium Total Bilirubin AST ALT Alkaline Phosphatase Total Protein Albumin Globulin Albumin/Globulin Ratio TSH 0.78 Urine Color Straw Urine Clarity Clear Urine pH 7.0 Ur Specific [place] 1.005 Urine Protein Negative Urine Glucose (UA) Normal Urine Ketones Negative Urine Occult Blood Negative Urine Nitrite Negative Urine Bilirubin Negative Urine Urobilinogen Normal Ur Leukocyte Esterase 25 H Urine RBC 0 SEEN Urine WBC 0-5 SEEN Ur Squamous Epith Cells 0-5 SEEN Urine Bacteria 0 SEEN Urine Mucus 0 SEEN Salicylates < 1.7 L Urine Opiates Screen Urine Methadone Screen Acetaminophen < 2.0 L Ur Barbiturates Screen Ur Phencyclidine Scrn Ur Amphetamines Screen U Methamphetamin-MDMA U Benzodiazepines Scrn Urine Cocaine Screen U Cannabinoids Screen Ur Drug Screen Comment Ethyl Alcohol 402.0 H* Radiography Diagnostic Testing: Radiology Impression Chest X-Ray 03/09/21 13:17 IMPRESSION: No acute adenopathy is seen. Electronically Signed: Raymundo Aldrich MD at 14:25 EDT , Service support , Brain CT 03/09/21 14:25 IMPRESSION: Chronic involutional changes of the brain. Electronically Signed: Raymundo Aldrich MD at 15:10 EDT , Service support , 1 view chest x-ray shows no acute disease. No evidence of aspiration. EKG Initial EKG: Attestation: I personally reviewed and interpreted this EKG as follows: Interpretation: Sinus Rhythm Comments: EKG is sinus at [address] changes. Treatment and Re-Evaluation Comments:: Emergency department course: Patient's pill bottles were is missing 3 doses of Seroquel, 41 doses of trazodone. It is unclear what she had crushed up and was apparently snorting in her hotel room. Patient does admit to being depressed and is having suicidal thoughts. Treatment plan: Patient was discussed with case management. They have spoken with her family and with the patient as well. It is felt that she would best be served by being transferred to a psychiatric facility with dual diagnosis for her alcohol abuse in addition to her suicidal ideation. She is medically cleared. This note was generated with [employer] dictation software. It may contain incorrect words, spelling, and punctuation that were not noted in review of the chart prior to signing. Discharge Plan Triage Chief Complaint: Overdose ED Provider: Josue Jo Dx/Rx/DC Orders Clinical Impression: AA (alcohol abuse), Suicidal ideation, Depression Prescriptions: No Action trazodone 100 MG tablet 100 mg PO QHS RF: 0 duloxetine 60 MG Capsule.Dr 60 mg PO DAILY RF: 0 levothyroxine 50 MCG tablet 50 mcg PO DAILY RF: 0 quetiapine 50 MG tablet 50 mg PO QHS RF: 0 Primary Care Provider: Khai Palacios Chi Referrals: Khai Palacios Chi, MD [Primary Care Provider] -
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
--- NOTE | 2021-03-09 17:50 | CM.ED ---
SOCIAL WORK Call to [facility], spoke with Isreal. Per Isreal, beds on dual diagnosis unit available. Isreal reports patient's alcohol level must be under 100 before acceptance. Arash Sprague, REHABILITATION ASSISTANT, INCOME TAX PREPARER
--- NOTE | 2021-03-09 18:30 | ED.RN ---
PT FOUND DRINKING URINE OUT OF URINAL, REDIRECTED, URINAL REMOVED FROM ROOM.
--- NOTE | 2021-03-09 20:20 | CM.ED ---
SOCIAL WORK Call to [facility] to inquire about bed availability. Discussed referral. Referral to be faxed at this time. Staff updated on need for COVID-19 test. Arash Sprague MSW, PLUG OVERWRAP MACHINE TENDER
--- NOTE | 2021-03-09 21:13 | CM.ED ---
SOCIAL WORK Call to [facility] to verify referral received. Per worker, referral being reviewed at this time. Arash Sprague, [employer] DEAN, PLANNING TECHNICIAN
--- NOTE | 2021-03-09 22:30 | CM.ED ---
SOCIAL WORK Patient accepted to [facility] by Dr. Blackmon to the [facility]. Nurse to call report to [phone]. Clinical Pathologist to set up transport. Intake requesting physician to order potassium as lab result was low. Dr. Hanks updated. Patient and patient's sister, Nadia updated. Plan: [facility] Arash Sprague, MEAT CUTTER APPRENTICE, LANDING SCALER
[2021-03-09] MEDS: Potassium Chloride Oral Tablet 20 MEQ 40 MEQ PO (23:05)
== END 2021-03-09 23:19 | disposition home or self-care (01) ==
PROVIDERS: Emergency Provider Emergency Medicine; PCP Family Medicine Geriatric Medicine
DX: F10.10 Alcohol abuse, uncomplicated (principal); F32.9 Major depressive disorder, single episode, unspecified; R45.851 Suicidal ideations; Z79.899 Other long term (current) drug therapy
CPT/HCPCS: 70450; 71045; 80053; 80307; 80329; 81001; 82077; 84443; 85025; 87426; 93005; 96360; 96361; 99285; J7030; A4216; G0480

== ENCOUNTER 2022-02-05 12:39 | Inpatient (IN) | payer MEDICARE, SELFPAY ==
[2022-02-05] VITALS (8 sets, daily range): BP systolic 125–168; BP diastolic 63–96; PULSE 64–122; RESP 16–18; TEMP 36.7–36.9; O2SAT 89–99; BMI 24.9; BMI 23.5
--- NOTE | 2022-02-05 13:02 | ED.RN ---
Addendum entered by Evie Wilhelm 02/05/22 13:06: PT. ALSO HAD DRIED VOMIT ON CLOTHES. Original Note: PT. SIGNIFICANT OTHER BROUGHT IN BY PT. REPORTS THAT PT. LAST DRANK VODKA THIS MORNING. PT. IS NONVERBAL AND CONTINUES TO TRY TO GET UP OUT OF BED. CONTINUALLY REINFORCING TO PT. THAT THEY NEEDS TO STAY IN BED. PT. HAS ABRASION TO NOSE AND MOUTH/CHEEK. SO STATES THEY RAN INTO A WALL TODAY. NURSE UNABLE TO ASSESS PT. PT. WILL NOT ANSWER ANY QUESTIONS.
--- NOTE | 2022-02-05 13:26 | CT_ITS ---
INDICATION: ams EXAMINATION: CT BRAIN - CT Head or Brain W/O Contrast Injection TECHNIQUE: Multiple axial images were obtained of the head without intravenous contrast. A radiation dose optimization technique was used for this scan. IV Contrast dosage and agent: None. COMPARISON: CT head from 06/09/2021 FINDINGS: No acute intracranial hemorrhage. No significant midline shift. Stable mild diffuse cortical atrophy. Stable size and configuration of the ventricles. No acute cortical infarction. No significant cerebral edema or parenchymal mass. Mild chronic small vessel ischemic changes. Stable bilateral basal ganglia calcifications. No acute calvarial fracture. Orbits and globes are unremarkable. Small right maxillary sinus mucus retention cyst/polyp. Overall, the sinuses are patent. Mastoid air cells are clear. CT/Brain/Head without Contrast IMPRESSION: No acute intracranial findings. Electronically Signed: Abdiel Lewis, at 14:21 EDT ,
--- NOTE | 2022-02-05 13:28 | EKG12_ITS ---
Test Reason : N/V Blood Pressure : / mmHG Vent. Rate : 105 BPM Atrial Rate : 105 BPM P-R Int : 132 ms QRS Dur : 086 ms QT Int : 352 ms P-R-T Axes : 069 -24 057 degrees QTc Int : 465 ms Sinus tachycardia Otherwise normal ECG Confirmed by YEHUDA LUCIANO, RAHUL ([id number]), assignment editor KAELA ROBERTS ([id number]) on 02/06/2022 8:30:46 AM Referred By: J CARLOS Confirmed By:RAHUL BLACKMAN MD
--- NOTE | 2022-02-05 13:32 | EDS_ITS ---
HPI History of Present Illness Chief Complaint: Nausea/Vomiting Informant: patient, family and friend Narrative Narrative: 71-year-old female was brought to the emergency room by her housemate with a chief complaint of altered mental status. Patient has a history of alcohol abuse was recently released from [facility] where she spent 6 months for 3 DUIs. When asked if she would prefer rehab reportedly the patient told the juvenile court judge she did not believe she had a problem and opted for intermediate. Family tells me that she also has a history with narcotics. Family reports that when she got out of intermediate she received a prescription for trazodone. The roommate brought her bottle of trazodone to me with filled on 14 January for 180 units. She has 56 missing. He states that she was also taking some from another bottle but that he could not find it so it is possible that she was taking more trazodone than needed. Family notes that they believe she is drinking again and do not know how much of the trazodone she is abusing. Roommate notes that he frequently finds bottles o f vodka around the house and this morning found her sneaking to white pills which she assumed was trazodone with some vodka. Housemate notes that she turned the stove on and passed out in a chair and vomited on herself last night. Family notes that she has been hospitalized in [place] due to traumatic brain injury several times. During which time she states that the consult consultation liaison psychiatry and when she is sober is very articulate and does not meet inpatient psychiatric care. She does not know where the bruise on her nose came from the roommate states it is from blunt nasal injury. Patient cannot tell staff her name date of or speak in any intelligible sentence. PFSH PFSH Medical History Alcohol abuse Anxiety Depression History of GI bleed Hyperlipidemia Hypothyroidism Tobacco use Home Medications duloxetine 60 mg PO DAILY 12/26/14 [History Last Taken 10/16/18] trazodone 100 mg PO QHS 12/26/14 [History Last Taken 10/15/18] levothyroxine 50 mcg PO DAILY 10/17/18 [History Last Taken 10/17/18] quetiapine 50 mg PO QHS 01/22/21 [History Last Taken Unknown] Allergy/AdvReac Type Severity Reaction Status Date / Time No Known Allergies Allergy Verified 02/05/22 12:41 Family History (Updated 02/05/22 @ 14:[address] Nichelle Robert MD) Mother Heart disease Hypertension Father Heart disease Hypertension Surgical History (Updated 02/05/22 @ 14:[address] Nichelle Robert MD) No history of previous surgery Social History (Updated 02/05/22 @ 14:[address] Nichelle Robert MD) household members: spouse current gender identity: female Smoking Status: Current every day smoker tobacco type: cigarettes alcohol intake: current alcohol intake frequency: 3 or more drinks per day details: Alternates, ranges from 1 pint vodka, whiskey, beer, wine daily. substance use type: does not use ROS ROS ED Review of Systems ROS Unobtainable: due to mental status EXAM Physical Exam Const Vital Signs: 02/05/22 12:41 02/05/22 13:38 Temperature 98.5 F Temperature Source Temporal Pulse Rate 122 H 105 H Respiratory Rate 16 16 Blood Pressure 168/96 H 145/68 H Blood Pressure Mean 120 93 Blood Pressure Source Monitor Blood Pressure Position Semi-Fowlers Blood Pressure Location Right Arm Pulse Ox 89 95 Oxygen Delivery Method Room Air Room Air Positive well nourished, well developed and unkempt General Appearance ED: unkempt and well developed HEENT Reports normocephalic, head/scalp atraumatic and moist mucous membranes HEENT Narrative: Nasal contusion trauma Eyes PERRL and EOMs intact bilaterally Neck no lymphadenopathy, supple and no JVD Resp normal respiratory effort and clear to auscultation bilaterally Cardio regular rate, regular rhythm and no murmurs GI normal to inspection, nondistended, normoactive bowel sounds and non-tender Palpation: soft Back/Spine no CVA tenderness and normal ROM Extremity normal to inspection General Extremety ED: Negative for edema General Extremity: Negative for edema Neuro CN's II-XII intact bilaterally Neuro Narrative: Patient is able to walk but slowly. Patient is difficult to redirect. Sensorium / Orientation: alert and orientation impaired Motor Exam: strength 5/5 throughout Psych Appearance: unkempt Attitude: No agitated Mood & Affect: Negative for tearful Skin no rashes or lesions noted and no wounds MDM MDM MDM Narrative Medical decision making narrative: Basic blood work was obtained shows a white count of 7.1 with a hemoglobin of 11.8. INR 1. Creatinine 0.52. Liver enzymes normal glucose 107 TSH 4.04. Alcohol is negative. CT the brain negative my interpretation of the chest x-ray is no acute process. Urinalysis is pending. The patient cannot tell me her name birthdate and does not really speak in a manner that she is able to put sentences together. This could be trazodone issue. 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 I think is reasonable to observe her in the hospital hold medications that could alter mental status. From alcohol standpoint the patient wants to get back into AA. Lab Data Attestation: I reviewed the patient's lab results. Labs: Laboratory Results - last 24 hr 02/05/22 02/05/22 02/05/22 13:35 13:35 13:35 WBC 7.1 RBC 3.79 L Hgb 11.8 L Hct 36.1 L MCV 95.3 MCH 31.1 MCHC 32.7 RDW Std Deviation 55.8 H RDW Coeff of Melany 15.9 H Plt Count 143 L MPV 9.7 Immature Gran % (Auto) 0.400 Neut % (Auto) 85.8 H Lymph % (Auto) 6.9 L [place] % (Auto) 6.1 Eos % (Auto) 0.0 Baso % (Auto) 0.8 Absolute Neuts (auto) 6.1 Absolute Lymphs (auto) 0.49 L Nucleated RBC % 0 PT 12.6 INR 1.0 Sodium 135 L Potassium 3.6 Chloride 100 Carbon Dioxide 24.0 Anion Gap 11 BUN 18 Creatinine 0.52 L Estim Creat Clear Calc 45.20 Est GFR (MDRD) Af Amer 149 Est GFR (MDRD) Non-Af 123 BUN/Creatinine Ratio 34.5 H Glucose 107 H Calcium 9.0 Total Bilirubin 0.80 AST 30 ALT 22 Alkaline Phosphatase 90 Troponin I High Sens 5 Total Protein 7.1 Albumin 3.5 Globulin 3.6 Albumin/Globulin Ratio 1.0 TSH 4.04 H Ethyl Alcohol 02/05/22 13:35 WBC RBC Hgb Hct MCV MCH MCHC RDW Std Deviation RDW Coeff of Melany Plt Count MPV Immature Gran % (Auto) Neut % (Auto) Lymph % (Auto) [place] % (Auto) Eos % (Auto) Baso % (Auto) Absolute Neuts (auto) Absolute Lymphs (auto) Nucleated RBC % PT INR Sodium Potassium Chloride Carbon Dioxide Anion Gap BUN Creatinine Estim Creat Clear Calc Est GFR (MDRD) Af Amer Est GFR (MDRD) Non-Af BUN/Creatinine Ratio Glucose Calcium Total Bilirubin AST ALT Alkaline Phosphatase Troponin I High Sens Total Protein Albumin Globulin Albumin/Globulin Ratio TSH Ethyl Alcohol < 3.0 Radiography Diagnostic Testing: Clinical Impression(s) from Imaging Studies Brain CT 02/05/22 13:26 IMPRESSION: No acute intracranial findings. Electronically Signed: Abdiel Lewis, at 14:21 EDT , Chest X-Ray 02/05/22 14:08 IMPRESSION: No acute cardiopulmonary abnormality. No interval change. Electronically Signed: David Drummond MD at 15:00 EDT , EKG Initial EKG: Attestation: I personally reviewed and interpreted this EKG as follows: Comments: Sinus tachycardia with a ventricular rate of 105 bpm. Discharge Plan Dx/Rx/DC Orders Clinical Impression: Acute encephalopathy, AA (alcohol abuse), Acute drug overdose Disposition Disposition: Acute Care [facility]
[2022-02-05 13:57] LABS: Absolute Lymphocyte Count 0.49 X10^3/uL (0.83-4.51); Absolute Neutrophil Count 6.1 X10^3/uL (2.0-7.7); Basophil# 0.06 X10^3/uL; Basophil% 0.8 % (0-1); Hematocrit 36.1 % (37-47); Hemoglobin 11.8 g/dL (12.0-15.0); Lymphocyte # 0.49 X10^3/ul (0.83-4.51); Lymphocyte % 6.9 % (19-41); Mean Corp Hgb Conc 32.7 g/dL (32-36); Mean Corpuscular Hgb 31.1 pg (27.0-32.0); Mean Corpuscular Volume 95.3 fL (81-99); Mean Platelet Vol. 9.7 fl (6.2-12.0); Monocyte# 0.43 X10^3/uL; Monocyte% 6.1 % (0-10); NRBC Flagged by Analyzer 0 % (0-5); Neutrophil # 6.08 X10^3/uL (2.7-7.7); Neutrophil % 85.8 % (47-70); POSITIVE DIFFERENTIAL YES; Platelet Count 143 K/mm3 (150-450); RBC Distribution Width CV 15.9 % (11.6-14.6); RBC Distribution Width SD 55.8 fl (35.1-43.9); Red Blood Count 3.79 M/mm3 (4.2-5.4); White Blood Count 7.1 K/mm3 (4.4-11.0)
[2022-02-05 14:03] LABS: Differential Indicated SCAN CRITERIA MET
--- NOTE | 2022-02-05 14:08 | RAD_ITS ---
EXAM: XR CHEST, 1 VIEW CLINICAL INDICATION: altered mental status TECHNIQUE: Frontal view of the chest. This report was created using [employer] report generation technology. COMPARISON: September 09, 2021 FINDINGS: LUNGS AND PLEURAL SPACES: Unremarkable. No consolidation or edema. No pneumothorax. No effusion. HEART: Unremarkable. Cardiac silhouette not enlarged. MEDIASTINUM: Central airways and mediastinal contour are unremarkable. BONES/JOINTS: Unremarkable. SOFT TISSUES: Unremarkable. RAD/Chest 1 View (Portable) IMPRESSION: No acute cardiopulmonary abnormality. No interval change. Electronically Signed: David Drummond MD at 15:00 EDT ,
[2022-02-05 14:22] LABS: AST(SGOT) 30 U/L (15-37); Alanine Aminotransfer ALT/SGPT 22 U/L (13-56); Albumin, Serum 3.5 g/dL (3.2-5.0); Alkaline Phosphatase 90 U/L (45-117); Anion Gap 11 (5-15); BUN 18 mg/dL (7-18); BUN/Creat Ratio 34.5 RATIO (10-20); Chloride 100 mmol/L (98-107); Creatinine, Serum 0.52 mg/dL (0.55-1.02); EST Glomerular Filtration Rate 123 mL/min (>60); Est Glom Filt Rate - Afr Amer 149 mL/min (>60); Globulin 3.6 g/dL (2.2-4.2); Glucose 107 mg/dL (74-106); Potassium 3.6 mmol/L (3.5-5.1); Protein, Total 7.1 g/dL (6.4-8.2); Sodium Level 135 mmol/L (136-145); Thyroid Stim Hormone (TSH) 4.04 uIU/mL (0.358-3.74); Troponin-I HS 5 pg/mL (3.0-54.0)
[2022-02-05 14:26] LABS: Alcohol, Blood (Medical)-Serum < 3.0 mg/dL
[2022-02-05 14:43] LABS: Prothrombin Time (Protime)PT. 12.6 SECONDS (11.7-14.9)
--- NOTE | 2022-02-05 15:59 | NURSING ---
DR MCKINNEY FOR DR WHITMAN
--- NOTE | 2022-02-05 16:01 | PCM.HP.STD ---
HPI - General General Date of Admission: 02/05/22 Date of Service: 02/05/22 Chief Complaint: Alcohol abuse, withdrawal, Possible Trazodone OD. HPI Narrative The patient is a 71 y/o F w/ PMHx: Hx Trazodone abuse, EtOH Abuse (Hx prior 1 pint vodka, whiskey, beer and wine daily but recently in Alf x 6 months secondary to DUI x 3 recently released) currently restarted drinking again with last intake in the AM (roommate findings vodka bottles in the house hidden and empty), Hypothyroidism, HLD, History of GI bleed, Anxiety and Depression who presents to the [facility] ED on 02/05/22 with history of family suspected recurrent EtOH abuse and concern per family of again recurrent traozone abuse found on day of presentation passed out in a chair with the stove on covered in emesis, disorieted prompting her to be brought to the ED for evaluation. Family notes that she recently had trazodone rx filled on 01/14/22 with 180 tablets and currently 56 are missing in addition to supposedly taking trazodone from also an additional bottle but unclear exact amount. Work-up in the ED included T98.5, heart rate 122, BP initially 116/96 with most recent repeat 145/68, respiratory rate 16, 95% on room air, CBC with WC 7.1, hemoglobin 11.8, platelet 143 with lymphopenia, unremarkable coags, CMP with sodium 135, glucose 107 otherwise not marked appearing, troponin 5, TSH 4.04, ethyl alcohol less than 3, chest x-ray with no acute cardiopulmonary findings, CT brain with no acute intracranial findings. Urinalysis and UDS pending. Lengthy discussions while patient in the ED she did admit to alcohol abuse but could not give current amounts but states that she does believe it may be time to have some help. [facility] Medical History Alcohol abuse Anxiety Depression History of GI bleed Hyperlipidemia Hypothyroidism Tobacco use Home Medications duloxetine 60 mg PO DAILY@209912/26/14 [History Last Taken 02/04/22 21:00] trazodone 200 mg PO QHS@209912/26/14 [History Last Taken 02/04/22 21:00] Allergy/AdvReac Type Severity Reaction Status Date / Time No Known Allergies Allergy Verified 02/05/22 12:41 Family History (Updated 02/05/22 @ 14:[address] Nichelle Robert MD) Mother Heart disease Hypertension Father Heart disease Hypertension Surgical History No history of previous surgery Social History (Updated 02/05/22 @ 14:[address] Nichelle Robert MD) household members: spouse current gender identity: female Smoking Status: Current every day smoker tobacco type: cigarettes alcohol intake: current alcohol intake frequency: 3 or more drinks per day details: Alternates, ranges from 1 pint vodka, whiskey, beer, wine daily. substance use type: does not use ROS ROS Narrative Admission Review of Systems: CONSTITUTIONAL: No weight loss, fever, chills, + weakness or fatigue. HEENT: Eyes: No visual loss, blurred vision, double vision or yellow sclerae. Ears, Nose, Throat: No hearing loss, sneezing, congestion, runny nose or sore throat. SKIN: No rash or itching, lesions, wounds. CARDIOVASCULAR: No chest pain, chest pressure or chest discomfort, palpitations, edema, orthopnea, syncopal events. RESPIRATORY: No shortness of breath, cough or sputum, wheezing, hemoptysis. GASTROINTESTINAL: + anorexia, nausea, vomiting, No diarrhea, abdominal pain, melena, BRBPR. GENITOURINARY: No dysuria, frequency, urgency or retention. NEUROLOGICAL: + Mild tremors, No headache, dizziness, syncope, paralysis, ataxia, numbness or tingling in the extremities, focal weakness, change in bowel or bladder control, seizure. MUSCULOSKELETAL: No muscle, back pain, joint pain or stiffness. HEMATOLOGIC: + anemia, bleeding or bruising. LYMPHATICS: No enlarged nodes. No history of splenectomy. PSYCHIATRIC: + history of depression or anxiety. ENDOCRINOLOGIC: No reports of sweating, cold or heat intolerance. No polyuria or polydipsia. ALLERGIES: No history of asthma, hives, eczema or rhinitis. Vital Signs Vital Signs Vital Signs: 02/05/22 12:41 02/05/22 13:38 Temperature 98.5 F Temperature Source Temporal Pulse Rate 122 H 105 H Respiratory Rate 16 16 Blood Pressure 168/96 H 145/68 H Blood Pressure Mean 120 93 Blood Pressure Source Monitor Blood Pressure Position Semi-Fowlers Blood Pressure Location Right Arm Pulse Ox 89 95 Oxygen Delivery Method Room Air Room Air Weight Weight: 145 lb Body Mass Index (BMI) 24.9 Physical Exam Narrative Physical Examination: General: Awake, alert, oriented now to self, place and recent events, notably improved since initial ED presentation, following commands, seated upright in the ED, mild tremors noted. Skin: Normal color, normal turgor, no icterus, no cyanosis except occasional staged ecchymoses and abrasions including to face. HEENT: AT/NC, EOMI, PERRLA, dry MM, no carotid bruits or JVD noted. Lungs: Diminished, greater bases, moderate effort, no rales, ronchi or wheezing. Heart: Tachycardic with regular rhythm; no gallop, rub audible. Abdomen: Soft, NTTP, ND, distant hyperactive BS, positive mild HM Extremities: No cyanosis, clubbing, or edema. Neurological: Patient awake, alert, oriented as noted, cognitive function improving, suspect somewhat nearing base intact; pupils equally reactive to light and accommodation, cranial nerves II-XII grossly normal, moving all 4 extremities, no focal deficits, strength moderately global decrease secondary to acute presentation, mild tremors evident. Psychiatric: Affect appears fatigued, no acute evidence of depressive or anxiety feelings. Results Lab / Micro Data Result Diagrams: 02/05/22 13:35 02/05/22 13:35 Labs: Laboratory Results - last 24 hr 02/05/22 13:35: WBC 7.1, RBC 3.79 L, Hgb 11.8 L, Hct 36.1 L, MCV 95.3, MCH 31.1, MCHC 32.7, RDW Std Deviation 55.8 H, RDW Coeff of Melany 15.9 H, Plt Count 143 L, MPV 9.7, Immature Gran % (Auto) 0.400, Neut % (Auto) 85.8 H, Lymph % (Auto) 6.9 L, [place] % (Auto) 6.1, Eos % (Auto) 0.0, Baso % (Auto) 0.8, Absolute Neuts (auto) 6.1, Absolute Lymphs (auto) 0.49 L, Nucleated RBC % 0 02/05/22 13:35: PT 12.6, INR 1.0 02/05/22 13:35: Sodium 135 L, Potassium 3.6, Chloride 100, Carbon Dioxide 24.0, Anion Gap 11, BUN 18, Creatinine 0.52 L, Estim Creat Clear Calc 45.20, Est GFR (MDRD) Af Amer 149, Est GFR (MDRD) Non-Af 123, BUN/Creatinine Ratio 34.5 H, Glucose 107 H, Calcium 9.0, Total Bilirubin 0.80, AST 30, ALT 22, Alkaline Phosphatase 90, Troponin I High Sens 5, Total Protein 7.1, Albumin 3.5, Globulin 3.6, Albumin/Globulin Ratio 1.0, TSH 4.04 H 02/05/22 13:35: Ethyl Alcohol < 3.[address] 02/05/22 13:26 IMPRESSION: No acute intracranial findings. Electronically Signed: Abdiel Lewis, at 14:21 EDT , Chest X-Ray 02/05/22 14:08 IMPRESSION: No acute cardiopulmonary abnormality. No interval change. Electronically Signed: David Drummond MD at 15:00 EDT , Assessment & Plan Assessment/Plan (1) Acute encephalopathy: (2) Acute drug overdose: QUALIFIERS: Encounter type: initial encounter Injury intent: undetermined intent Qualified Code(s): T50.904A - Poisoning by unspecified drugs, medicaments and biological substances, undetermined, initial encounter (3) Alcohol withdrawal: QUALIFIERS: Complication of substance-induced condition: uncomplicated Qualified Code(s): F10.230 - Alcohol dependence with withdrawal, uncomplicated PLAN: The patient is a 71 y/o F w/ PMHx: Hx Trazodone abuse, EtOH Abuse (Hx prior 1 pint vodka, whiskey, beer and wine daily but recently in Alf x 6 months secondary to DUI x 3 recently released) currently restarted drinking again with last intake in the AM (roommate findings vodka bottles in the house hidden and empty), Hypothyroidism, HLD, History of GI bleed, Anxiety and Depression who presents to the [facility] ED on 02/05/22 with history of family suspected recurrent EtOH abuse and concern per family of again recurrent traozone abuse found on day of presentation passed out in a chair with the stove on covered in emesis, disorieted prompting her to be brought to the ED for evaluation. #1. Acute Encephalopathy suspected secondary to Potentially Acute EtOH Withdrawal and potentially Trazodone overdose: Routine labs obtained in the ED upon presentation and not marked appearing, CT brain without acute findings. Given interest in sobriety noted per family/friends present, will admit to MS on telemetry, will initiate and continue on protocol with taper course of Phenobarbital to be cautious, scheduled gabapentin for seizure prophylaxis but hold for sedation, as needed Catapres, Bentyl, Vistaril, IV fluids, IV antiemetics, Tylenol as needed for pain. Will consult Case management for assistance for transition to next level of rehabilitation care. Mag, phos pending. Maintain on CIWA protocol concurrently. #2. Anxiety and Depression: Continue home regimen of duloxetine, hold seroquel and trazodone given presentation concerns. #3. Tobacco Abuse: Encouraged cessation, inpatient consultation per RT, NR deferred given very low amount of cigarette usage. #4. Hypothyroidism with abnormal TSH: Continue home synthroid regimen, FT4 pending. #5. Hyperlipidemia: Previously on statin, defer to outpatient. #6. History of GI bleed, GERD: Previously on PPI. #7. DVT Prophylaxis: Low risk given admission plan of care, encourage ambulation. Charges/Coding Visit Charges Inpatient E&M: 24898 Init Hosp L3
--- NOTE | 2022-02-05 16:08 | NURSING ---
MED SURG WHITE CEPHALOPATHY, ALCOHOL WITHDRAWAL, TRAZADONE OVERDOSE
[2022-02-05] MEDS: Phenobarbital 32.4 MG Tablet 97.2 MG PO ×2 (17:05→21:59)
[2022-02-05] MEDS: 0.9% Saline Lock 10 ML Syringe IV (17:06)
[2022-02-05] MEDS: 0.9% Normal Saline 1,000 ML 100 ML IV (17:06)
[2022-02-05 17:07] LABS: Magnesium 1.6 mg/dL (1.6-2.6); Phosphorus 3.1 mg/dL (2.5-4.9)
[2022-02-05] MEDS: Ondansetron 8 MG Tablet PO (22:07)
[2022-02-06] VITALS (9 sets, daily range): BP systolic 109–127; BP diastolic 56–82; PULSE 61–109; RESP 16–18; TEMP 36.5–36.9; O2SAT 94–98
[2022-02-06] MEDS: Phenobarbital 32.4 MG Tablet 97.2 MG PO ×4 (00:50→13:05)
[2022-02-06] MEDS: 0.9% Saline Lock 10 ML Syringe IV (06:13)
[2022-02-06 06:18] LABS: Absolute Lymphocyte Count 1.24 X10^3/uL (0.83-4.51); Absolute Neutrophil Count 3.8 X10^3/uL (2.0-7.7); Basophil# 0.05 X10^3/uL; Basophil% 0.8 % (0-1); Eosinophil# 0.07 X10^3/uL; Eosinophils% 1.2 % (0-5); Hematocrit 35.3 % (37-47); Hemoglobin 11.9 g/dL (12.0-15.0); Lymphocyte # 1.24 X10^3/ul (0.83-4.51); Mean Corp Hgb Conc 33.7 g/dL (32-36); Mean Corpuscular Hgb 32.4 pg (27.0-32.0); Mean Corpuscular Volume 96.2 fL (81-99); Mean Platelet Vol. 9.3 fl (6.2-12.0); Monocyte# 0.71 X10^3/uL; NRBC Flagged by Analyzer 0 % (0-5); Neutrophil # 3.82 X10^3/uL (2.7-7.7); Neutrophil % 64.7 % (47-70); Platelet Count 124 K/mm3 (150-450); RBC Distribution Width CV 15.8 % (11.6-14.6); RBC Distribution Width SD 56.1 fl (35.1-43.9); Red Blood Count 3.67 M/mm3 (4.2-5.4); White Blood Count 5.9 K/mm3 (4.4-11.0)
[2022-02-06 06:25] LABS: Mucous, Urine 0 SEEN /hpf (<or=2+); Red Blood Cells-Urine 0 SEEN /hpf (0-5); Squamous Epithelial Cells - UA 0 SEEN /hpf (5-10)
[2022-02-06 06:26] LABS: Color, Urine Yellow (Yellow); Glucose, Dipstick Normal (Normal); Ketone-Dipstick 50 mg/dl (Negative); Leukocyte Esterase-Dipstick 25 /ul (Negative); Nitrite-Dipstick Negative (Negative); Occult Blood-Urine Negative /ul (Negative); Protein-Dipstick Negative (Negative); Urine Clarity Clear (Clear); Urine Urobilinogen 4 mg/dl (Normal)
[2022-02-06 06:47] LABS: Urine Bilirubin Dipstick 1 mg/dL (Negative)
[2022-02-06 06:48] LABS: Amphetamine Urine VISTA NEGATIVE (<1000 ng/mL); Bacteria 1+ /hpf (None Seen); Barbiturate Urine VISTA POSITIVE (< 200 ng/mL); Benzodiazepine Urine VISTA NEGATIVE (< 200 ng/mL); Cocaine Urine VISTA NEGATIVE (< 300 ng/mL); Ecstacy Urine VISTA POSITIVE (< 500 ng/mL); Methadone Urine VISTA NEGATIVE (< 300 ng/mL); PCP Urine VISTA NEGATIVE (< 25 ng/mL); THC Urine VISTA NEGATIVE (< 50 ng/mL); Vista UDS pH Range 8; White Blood Cells 0-5 SEEN /hpf (0-5)
[2022-02-06 06:49] LABS: Amorphous Sediment 1+
[2022-02-06 07:04] LABS: ALB/GLOB Ratio 0.9 RATIO (0.9-2.4); AST(SGOT) 27 U/L (15-37); Alanine Aminotransfer ALT/SGPT 20 U/L (13-56); Albumin, Serum 2.8 g/dL (3.2-5.0); Alkaline Phosphatase 75 U/L (45-117); Anion Gap 8 (5-15); BUN 16 mg/dL (7-18); BUN/Creat Ratio 29.7 RATIO (10-20); Calcium,Total 8.7 mg/dL (8.5-10.1); Chloride 102 mmol/L (98-107); Creatinine, Serum 0.54 mg/dL (0.55-1.02); EST Glomerular Filtration Rate 119 mL/min (>60); Est Glom Filt Rate - Afr Amer 144 mL/min (>60); Globulin 3.2 g/dL (2.2-4.2); Glucose 76 mg/dL (74-106); Potassium 3.6 mmol/L (3.5-5.1); Sodium Level 134 mmol/L (136-145); T4 Free Direct 0.78 ng/dL (0.76-1.46)
[2022-02-06] MEDS: DULoxetine Hcl 60 MG Capsule PO (08:47)
[2022-02-06] MEDS: Thiamine Hydrochloride 100 MG Tablet PO (08:47)
[2022-02-06] MEDS: Folic Acid 1 MG Tablet PO (08:47)
--- NOTE | 2022-02-06 10:31 | PN.HOSP_ITS ---
Subjective Subjective No events overnight. Reports getting out of group home about 3 weeks ago, then began drinking heavily for the past 10-days. She denies taking an excess of trazodone, saying she only took 2. She developed abrasions on her face after hitting a wall. Objective Data Objective Data Vital Signs: Vital Signs Temp Pulse Resp BP Pulse Ox 36.5 C L 72 18 119/56 L 96 02/06/22 08:48 02/06/22 08:48 02/06/22 08:48 02/06/22 08:48 02/06/22 08:48 Oxygen Delivery Method Room Air Weight: 62.1 kg Body Mass Index (BMI) 23.5 Intake & Output: Intake and Output for Last 24 Hours 02/04/22 02/05/22 02/06/22 23:59 23:59 23:59 Intake Total 220 / 420 1400 / 1400 Balance 220 / 420 1400 / 1400 Lab / Micro Data Result Diagrams: 02/06/22 06:09 02/06/22 06:09 Labs: Laboratory Results - last 24 hr 02/05/22 13:35: WBC 7.1, RBC 3.79 L, Hgb 11.8 L, Hct 36.1 L, MCV 95.3, MCH 31.1, MCHC 32.7, RDW Std Deviation 55.8 H, RDW Coeff of Melany 15.9 H, Plt Count 143 L, MPV 9.7, Immature Gran % (Auto) 0.400, Neut % (Auto) 85.8 H, Lymph % (Auto) 6.9 L, [place] % (Auto) 6.1, Eos % (Auto) 0.0, Baso % (Auto) 0.8, Absolute Neuts (auto) 6.1, Absolute Lymphs (auto) 0.49 L, Nucleated RBC % 0 02/05/22 13:35: PT 12.6, INR 1.0 02/05/22 13:35: Sodium 135 L, Potassium 3.6, Chloride 100, Carbon Dioxide 24.0, Anion Gap 11, BUN 18, Creatinine 0.52 L, Estim Creat Clear Calc 45.20, Est GFR (MDRD) Af Amer 149, Est GFR (MDRD) Non-Af 123, BUN/Creatinine Ratio 34.5 H, Glucose 107 H, Calcium 9.0, Total Bilirubin 0.80, AST 30, ALT 22, Alkaline Phosphatase 90, Troponin I High Sens 5, Total Protein 7.1, Albumin 3.5, Globulin 3.6, Albumin/Globulin Ratio 1.0, TSH 4.04 H 02/05/22 13:35: Ethyl Alcohol < 3.0 02/05/22 13:35: Phosphorus 3.1, Magnesium 1.6 02/06/22 06:09: WBC 5.9, RBC 3.67 L, Hgb 11.9 L, Hct 35.3 L, MCV 96.2, MCH 32.4 H, MCHC 33.7, RDW Std Deviation 56.1 H, RDW Coeff of Melany 15.8 H, Plt Count 124 L , MPV 9.3, Immature Gran % (Auto) 0.300, Neut % (Auto) 64.7, Lymph % (Auto) 21.0, [place] % (Auto) 12.0 H, Eos % (Auto) 1.2, Baso % (Auto) 0.8, Absolute Neuts (auto) 3.8, Absolute Lymphs (auto) 1.24, Nucleated RBC % 0 02/06/22 06:09: Sodium 134 L, Potassium 3.6, Chloride 102, Carbon Dioxide 24.0, Anion Gap 8, BUN 16, Creatinine 0.54 L, Estim Creat Clear Calc 45.20, Est GFR (MDRD) Af Amer 144, Est GFR (MDRD) Non-Af 119, BUN/Creatinine Ratio 29.7 H, G lucose 76, Calcium 8.7, Total Bilirubin 1.10 H, AST 27, ALT 20, Alkaline Phos phatase 75, Total Protein 6.0 L, Albumin 2.8 L, Globulin 3.2, Albumin/Globulin Ratio 0.9, Free T4 0.78 02/06/22 06:20: Urine Color Yellow, Urine Clarity Clear, Urine pH 7.0, Ur Specific [place] 1.010, Urine Protein Negative, Urine Glucose (UA) Normal, Urine Ketones 50 H, Urine Occult Blood Negative, Urine Nitrite Negative, Urine Bilirubin 1 H, Urine Urobilinogen 4 H, Ur Leukocyte Esterase 25 H, Urine RBC 0 SEEN, Urine WBC 0-5 SEEN, Ur Squamous Epith Cells 0 SEEN, Amorphous Sediment 1+, Urine Bacteria 1+, Urine Mucus 0 SEEN 02/06/22 06:20: Urine Opiates Screen NEGATIVE, Urine Methadone Screen NEGATIVE, Ur Barbiturates Screen POSITIVE H, Ur Phencyclidine Scrn NEGATIVE, Ur Amphetamines Screen NEGATIVE, MDMA (Ecstasy) Screen POSITIVE H, U Benzodiazepines Scrn NEGATIVE, Urine Cocaine Screen NEGATIVE, U Cannabinoids Screen NEGATIVE, Ur Drug Screen Comment Radiography Diagnostic Testing: Radiology Impression Brain CT 02/05/22 13:26 IMPRESSION: No acute intracranial findings. Electronically Signed: Abdiel Lewis, at 14:21 EDT , Chest X-Ray 02/05/22 14:08 IMPRESSION: No acute cardiopulmonary abnormality. No interval change. Electronically Signed: David Drummond MD at 15:00 EDT , Physical Exam Const alert and no apparent distress HEENT HEENT Narrative: abrasions on face and nose. Psych affect normal Assessment & Plan Assessment/Plan (1) Acute encephalopathy: (2) AA (alcohol abuse): PLAN: 1. acute toxic encephalopathy * 2/2 trazodone overdose, despite the patient's claims, I doubt the reliability of her story. She was unresonsive may have been unaware of how much she took. Her alcohol level with less than 3, so at least she was not intoxicated on arrival * no further trazodone, pt aware, she could receive melatonin for insomnia if needed (she appear dissatisfied with that response) 2. Alcohol abuse * does not clinically appear to be in withdrawal, likely will not since she has only been drinking for the past 10 days or so * continue phenobarbital, thiamine and folate * encouraged pt to speak with the addiction liaison about outpt programs. She seemed indifferent to that, saying she is involved in AA. I reinforced the fact that she just got out of group home for DUIs and started drinking again. She minimized the 3 DUIs as they were spaced out over 10 or so years. * I am concerned about the lack of recourse in this alcoholic patient. She does not appear to recognize that she has a problem. * Pt to inform us if she wishes to stay or go home today. Greater than 35 minutes of which greater than 50% of the time was counseling the patient about alcoholism, continued ongoing treatment to maintain a goal of sobriety. Charges/Coding Visit Charges Inpatient E&M: 88489 Subs Hosp L3
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
--- NOTE | 2022-02-06 12:44 | ADDICTION ---
This worker spoke with pt about her ETOH and Trazadone use. She reports that she is not interested in resources at this time. She declined The Addiction Workbook that was offered.
[2022-02-06] MEDS: Gabapentin 100 MG Capsule PO (14:59)
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
--- NOTE | 2022-02-06 15:52 | PCM.DC ---
Discharge Instructions Diet Discharge Diet: No restrictions and - (No alcohol) Activity Discharge Activity: Return to Normal Activity Follow Up Care Please Follow Up With: Alcoholics Anonymous When: this week Test Results: Test results from this visit will be discussed in further detail at your follow-up appointment, if applicable. Discharge Plan Admission Admit Date/Time: 02/05/22 16:04 Primary Reason for Your Visit: toxic encephalopathy Attending Provider: Bud Jackson Primary Care Provider: Khai Palacios Chi Discharge Orders/Prescriptions Prescriptions: New multivitamin Tablet 1 tab PO DAILY Qty: 30 RF: 0 Continued duloxetine 60 MG capsule,delayed release(DR/EC) 60 mg PO DAILY@2100 RF: 0 Discontinued trazodone 100 MG tablet 200 mg PO QHS@2100 RF: 0 Referrals / Follow Up: Khai Palacios Chi, MD [Primary Care Provider] - Within 1 Week Disposition Disposition (needs filled in before D/C Order can be placed): Home, Self Care
--- NOTE | 2022-02-06 15:55 | DS.PCM_ITS ---
Providers Date of Admission: 02/05/22 Primary Care Physician: Dr. Khai Palacios MD Reason For Visit: ACUTE ENCEPHALOPATHY, SUSPECT TRAZODONE OD Diagnosis Discharge Diagnosis (1) Acute encephalopathy: Status: Acute Code(s): G93.40 - Encephalopathy, unspecified (2) AA (alcohol abuse): Status: Chronic Code(s): F10.10 - Alcohol abuse, uncomplicated Medications at Discharge Home Medications duloxetine 60 mg PO DAILY@2100 12/26/14 multivitamin 1 tab PO DAILY #30 tab 02/06/22 Hospital Course Operations None Procedures None Summary of Care Provided Minutes Spent on Discharge: 32 Hospital Course: This is a 8-year-old female found unresponsive. Patient's alcohol level on admission was less than 3. There is concern the patient took an overdose of trazodone. Patient reports only taking 2 tablets of trazodone but she was unresponsive. Patient did agree to treatment for alcohol abuse and was started on phenobarbital. Patient's course of alcohol withdrawal was uncomplicated. Patient has been drinking for about 10 days straight. Roughly 3 weeks ago, patient was released from the jail for her third DUI violation. While she was here, patient declined any resources from addiction medicine. Discussed with the patient earlier that she did not want to proceed with actual treatment that I think could be best for her to be discharged. Patient is alert and oriented. Unfortunate patient is continue to make bad decisions. Patient states that she will follow up with AA and has a wherewithal to maintain sobriety. Because of her drug overdose I have advised patient not to take any further trazodone. Because the patient's clinical stability and not wanting proceed with any further additional treatments, patient is being discharged sooner than initially anticipated. Weight / BMI Weight Weight: 62.1 kg Body Mass Index (BMI) 23.5 ABG / Lab / Microbiology Data Result Diagrams: 02/06/22 06:09 02/06/22 06:09 Laboratory: Laboratory Results - last 24 hr 02/05/22 13:35: Phosphorus 3.1, Magnesium 1.6 02/06/22 06:09: WBC 5.9, RBC 3.67 L, Hgb 11.9 L, Hct 35.3 L, MCV 96.2, MCH 32.4 H, MCHC 33.7, RDW Std Deviation 56.1 H, RDW Coeff of Melany 15.8 H, Plt Count 124 L , MPV 9.3, Immature Gran % (Auto) 0.300, Neut % (Auto) 64.7, Lymph % (Auto) 21.0, [place] % (Auto) 12.0 H, Eos % (Auto) 1.2, Baso % (Auto) 0.8, Absolute Neuts (auto) 3.8, Absolute Lymphs (auto) 1.24, Nucleated RBC % 0 02/06/22 06:09: Sodium 134 L, Potassium 3.6, Chloride 102, Carbon Dioxide 24.0, Anion Gap 8, BUN 16, Creatinine 0.54 L, Estim Creat Clear Calc 45.20, Est GFR (MDRD) Af Amer 144, Est GFR (MDRD) Non-Af 119, BUN/Creatinine Ratio 29.7 H, Glucose 76, Calcium 8.7, Total Bilirubin 1.10 H, AST 27, ALT 20, Alkaline Phosphatase 75, Total Protein 6.0 L, Albumin 2.8 L, Globulin 3.2, Albumin/Globulin Ratio 0.9, Free T4 0.78 02/06/22 06:20: Urine Color Yellow, Urine Clarity Clear, Urine pH 7.0, Ur Specific [place] 1.010, Urine Protein Negative, Urine Glucose (UA) Normal, Urine Ketones 50 H, Urine Occult Blood Negative, Urine Nitrite Negative, Urine Bilirubin 1 H, Urine Urobilinogen 4 H, Ur Leukocyte Esterase 25 H, Urine RBC 0 SEEN, Urine WBC 0-5 SEEN, Ur Squamous Epith Cells 0 SEEN, Amorphous Sediment 1+, Urine Bacteria 1+, Urine Mucus 0 SEEN 02/06/22 06:20: Urine Opiates Screen NEGATIVE, Urine Methadone Screen NEGATIVE, Ur Barbiturates Screen POSITIVE H, Ur Phencyclidine Scrn NEGATIVE, Ur Amphetamines Screen NEGATIVE, MDMA (Ecstasy) Screen POSITIVE H, U Benzodiazepines Scrn NEGATIVE, Urine Cocaine Screen NEGATIVE, U Cannabinoids Screen NEGATIVE, Ur Drug Screen Comment D/C Instructions Discharge Diet: No restrictions and - (No alcohol) Please Follow Up With: Alcoholics Anonymous When: this week Meaningful Use Info Meaningful Use Diagnoses (Choose all that apply): None applicable Discharge Plan Admission Admit Date/Time: 02/05/22 16:04 Primary Reason for Your Visit: toxic encephalopathy Attending Provider: Bud Jackson Primary Care Provider: Khai Palacios Chi Discharge Orders/Prescriptions Prescriptions: New multivitamin Tablet 1 tab PO DAILY Qty: 30 RF: 0 Continued duloxetine 60 MG capsule,delayed release(DR/EC) 60 mg PO DAILY@2099 RF: 0 Discontinued trazodone 100 MG tablet 200 mg PO QHS@2099 RF: 0 Referrals / Follow Up: Khai Palacios Chi, MD [Primary Care Provider] - Within 1 Week Disposition Disposition (needs filled in before D/C Order can be placed): Home, Self Care Charges/Coding Visit Charges Inpatient E&M: [id number] Disch Hosp
== END 2022-02-06 16:38 | disposition home or self-care (01) | DRG 917 ==
LOC: ED 16:04 → MS3 16:31
PROVIDERS: Admitting Provider Family Medicine; Emergency Provider Emergency Medicine; PCP Family Medicine Geriatric Medicine
DX: T43.211A Poisoning by selective serotonin and norepinephrine reuptake inhibitors, accidental (unintentional), initial encounter (principal); G92.9 Unspecified toxic encephalopathy; E03.9 Hypothyroidism, unspecified; F10.10 Alcohol abuse, uncomplicated; F17.210 Nicotine dependence, cigarettes, uncomplicated; F41.9 Anxiety disorder, unspecified; S00.33XA Contusion of nose, initial encounter; K21.9 Gastro-esophageal reflux disease without esophagitis; E78.5 Hyperlipidemia, unspecified; S00.81XA Abrasion of other part of head, initial encounter; F32.A Depression, unspecified; Z87.19 Personal history of other diseases of the digestive system; Z79.899 Other long term (current) drug therapy; Z71.6 Tobacco abuse counseling; Y90.9 Presence of alcohol in blood, level not specified; W22.01XA Walked into wall, initial encounter
CPT/HCPCS: 36415; 70450; 71045; 80053; 80307; 81001; 82077; 83735; 84100; 84439; 84443; 84484; 85025; 85610; 93005; 99283; 99406; J7030; A4216

== ENCOUNTER 2022-04-27 09:37 | Emergency (ER) | payer MEDICARE, SELFPAY ==
[2022-04-27 09:38] VITALS: BP 157/96; PULSE 110; RESP 16; TEMP 36.2; O2SAT 96; BMI 24.7
--- NOTE | 2022-04-27 09:39 | RAD_ITS ---
STUDY: X-RAY CHEST REASON FOR EXAM: Female, 71 years old. Shortness of breath TECHNIQUE: Single AP portable view of the chest. COMPARISON: Comparison is made with prior study dated 02/05/2022. FINDINGS: EKG electrodes are seen. Hyperinflation. The lungs are clear. There is no demonstrated pleural abnormality. Normal size heart. Normal mediastinum and collins. Normal visualized pulmonary arteries. There is atherosclerotic calcification of the aortic arch with tortuosity. There are diffuse degenerative changes of the visualized thoracic spine. Normal visualized ribs, clavicles, and shoulders. Hiatal hernia. RAD/Chest 1 View (Portable) IMPRESSION: Hyperinflation. The lungs are clear. Hiatal hernia. Electronically Signed: Raymundo Aldrich MD at 10:38 EDT ,
--- NOTE | 2022-04-27 09:40 | EKG12_ITS ---
Test Reason : ALT MENTAL STATUS Blood Pressure : / mmHG Vent. Rate : 101 BPM Atrial Rate : 101 BPM P-R Int : 128 ms QRS Dur : 090 ms QT Int : 358 ms P-R-T Axes : 072 -53 068 degrees QTc Int : 464 ms Sinus tachycardia Left anterior fascicular block Abnormal ECG Confirmed by DAKOTAH LUCIANO, MARILIA ([id number]), science editor BAY TABOR ([id number]) on 04/30/2022 11:26:17 AM Referred By: ANGEL Confirmed By:MARILIA CLAIRE MD
--- NOTE | 2022-04-27 10:08 | CT_ITS ---
STUDY: CT BRAIN WITHOUT CONTRAST REASON FOR EXAM: Female, 71 years old. Change mental status RADIATION DOSAGE (If Supplied By Facility): CTDIvol = ( 44.99 ) mGy, DLP = ( 812.98 ) mGycm TECHNIQUE: Transaxial CT imaging of the brain was performed without administration of intravenous contrast material. Individualized dose optimization techniques were used for this CT. COMPARISON: Comparison is made with prior study dated 02/05/2022. FINDINGS: Normal soft tissue structures. Normal calvarium. There is mild cerebral atrophy with widening of the extra-axial spaces and ventricular dilatation. There are areas of decreased attenuation within the white matter tracts of the supratentorial brain, consistent with microvascular disease changes. There are small punctate calcifications of the basal ganglia which are seen in the aging brain as a normal variant. Normal brainstem. There is mild cerebellar atrophy. There is no intracranial hemorrhage. There are no findings of an acute ischemic infarction. Atherosclerotic calcification of the cavernous portions of the internal carotid arteries bilaterally. Normal visualized paranasal sinuses. CT/Brain/Head without Contrast IMPRESSION: Chronic involutional changes of the brain. Electronically Signed: Raymundo Aldrich MD at 10:26 EDT ,
[2022-04-27 10:09] LABS: Bacteria 0 SEEN /hpf (None Seen); Mucous, Urine 0 SEEN /hpf (<or=2+); White Blood Cells 0 SEEN /hpf (0-5)
[2022-04-27 10:11] LABS: Absolute Lymphocyte Count 1.91 X10^3/uL (0.83-4.51); Absolute Neutrophil Count 4.8 X10^3/uL (2.0-7.7); Basophil# 0.11 X10^3/uL; Basophil% 1.4 % (0-1); Eosinophil# 0.05 X10^3/uL; Eosinophils% 0.6 % (0-5); Hemoglobin 14.5 g/dL (12.0-15.0); Lymphocyte # 1.91 X10^3/ul (0.83-4.51); Lymphocyte % 24.1 % (19-41); Mean Corpuscular Hgb 32.5 pg (27.0-32.0); Mean Corpuscular Volume 98.7 fL (81-99); Monocyte% 12.6 % (0-10); NRBC Flagged by Analyzer 0 % (0-5); Neutrophil % 60.5 % (47-70); Platelet Count 164 K/mm3 (150-450); RBC Distribution Width CV 15.3 % (11.6-14.6); RBC Distribution Width SD 55.6 fl (35.1-43.9); Red Blood Count 4.46 M/mm3 (4.2-5.4); White Blood Count 7.9 K/mm3 (4.4-11.0)
--- NOTE | 2022-04-27 10:22 | EDS_ITS ---
HPI History of Present Illness Chief Complaint: Mental Status Change Informant: EMS Narrative Narrative: History is severely limited at this time. Patient is essentially nonverbal. EMS was evidently called by a housemate or her boyfriend. She was foaming at the mouth and not responsive. There is question of seizure activity. But I do not know the details of this. My understanding is that the patient has a history of drug and alcohol abuse. I do not know if she is on any medicines. I do not know if she is ever had seizure for seizure with withdrawal. I have no knowledge of trauma. I have very little information to go on at this time. When EMS first found her she was evidently not responding and she is getting better. She is moving all extremities. She is starting to speak although not with any specific pattern or plan. She is not answering questions. But there is improvement. PFSH PFSH Medical History AA (alcohol abuse) Alcohol abuse Anxiety Depression History of GI bleed Hyperlipidemia Hypothyroidism Tobacco dependence Tobacco use Home Medications duloxetine 60 mg capsule,delayed release 60 mg PO DAILY@2100 12/26/14 [History Last Taken 02/04/22 21:00] multivitamin 1 tab PO DAILY #30 tabs 02/06/22 [Rx Last Taken Unknown] Allergy/AdvReac Type Severity Reaction Status Date / Time No Known Allergies Allergy Verified 04/27/22 09:50 Family History (Updated 02/05/22 @ 14:[address] Nichelle Robert MD) Mother Heart disease Hypertension Father Heart disease Hypertension Surgical History No history of previous surgery Social History (Updated 02/05/22 @ 14:[address] Nichelle Robert MD) household members: spouse Smoking Status: Unknown if ever smoked alcohol intake: current alcohol intake frequency: 3 or more drinks per day details: Alternates, ranges from 1 pint vodka, whiskey, beer, wine daily. substance use type: does not use ROS ROS ED ROS Narrative Patient is nonverbal and I cannot get any review of systems from her. Review of Systems ROS Unobtainable: due to mental condition EXAM Physical Exam Const Vital Signs: 04/27/22 09:38 Temperature 97.2 F L Temperature Source Temporal Pulse Rate 110 H Respiratory Rate 16 Blood Pressure 157/96 H Blood Pressure Mean 116 Pulse Ox 96 Oxygen Delivery Method Room Air Positive well developed General Appearance ED: well developed; Negative for cyanotic, diaphoretic or pallor HEENT Reports moist mucous membranes HEENT Narrative: Patient appears to have a contusion to the right corner of her lip and possibly the tip of her tongue. She has some poor dentition. No jaw tenderness. Eyes PERRL and EOMs intact bilaterally Eyes Narrative: Patient can look left right up and down. Pupillary responses normal. Neck no lymphadenopathy and supple General: Negative for tenderness Resp normal respiratory effort and clear to auscultation bilaterally Resp Narrative: No obvious chest wall tenderness. Effort and Inspection: Negative for retractions Cardio regular rhythm Rate: tachycardic GI normal to inspection, nondistended, normoactive bowel sounds and non-tender Back/Spine no CVA tenderness Extremity normal to inspection Extremity Narrative: No deformity. Good range of motion including shoulders. Neuro Neuro Narrative: Patient is awake. She will follow occasional simple commands such as moving her arm or looking 1 side to the other. She will say yes when I asked questions but this is consistent regardless of what I ask. This is evidently better than when EMS found her where she was completely nonverbal and not responding. Psych Psych Narrative: See above. Skin General Skin Exam: Negative for jaundice or pallor MDM MDM MDM Narrative Medical decision making narrative: Patient is rechecked. She is now alert and oriented x3. She knows the location. She could not get the name of the president until I gave her several options and then she immediately picked out the name. She has no complaint at this time. Her housemate is now here. He states he was talking to her. He turned down the air conditioning and then when he turned around she went stiff started shaking and foaming at the mouth. This lasted for a minute or so. EMS was called during this time. Both deny her ever knowingly having a seizure. But she does drink a fair amount. She drinks 1-2 1 L bottles of 40 proof vodka a day. She last drank about 13 or so hours ago. She had been drinking less during the day because she was running out of vodka. Occasionally she shakes when she does not drink for a while. She has not gone a long period of time without drinking. Considering her level is now 11 I think that this was a seizure from withdrawal. Her elevated lactate, elevated prolactin, and story of bystander supports this. Remainder of blood work shows no marked abnormalities. CT scan of the head shows no acute process. Chest x-ray shows no acute issue. I discussed detox with the patient. At this point she is not sure she wants this. She is now awake alert and oriented x3 and able to make her own decisions. I have encouraged her to get treatment. Her friend is trying to encourage her. I will go talk to her again to see if I can convince her to stay for treatment. I think she is at increased risk of morbidity mortality leaving. I talk with the patient again. She is not interested in coming in for detox. I explained that I cannot force her. Even though see she had a seizure, she is now awake alert and appropriate. She is not postictal anymore. She is not intoxicated. She is not hypoxic. She has the capacity to make her own decisions. She states she can quit drinking at home. I explained that that is not likely. She is welcome to come back at any time for treatment. Lab Data Attestation: I reviewed the patient's lab results. Labs: Laboratory Results - last 24 hr 04/27/22 04/27/22 04/27/22 09:27 09:27 09:27 WBC 7.9 RBC 4.46 Hgb 14.5 Hct 44.0 MCV 98.7 MCH 32.5 H MCHC 33.0 RDW Std Deviation 55.6 H RDW Coeff of Melany 15.3 H Plt Count 164 MPV 10.0 Immature Gran % (Auto) 0.800 Neut % (Auto) 60.5 Lymph % (Auto) 24.1 [place] % (Auto) 12.6 H Eos % (Auto) 0.6 Baso % (Auto) 1.4 H Absolute Neuts (auto) 4.8 Absolute Lymphs (auto) 1.91 Nucleated RBC % 0 Sodium 140 Potassium 3.6 Chloride 100 Carbon Dioxide 20.0 L Anion Gap 20 H BUN 21 H Creatinine 0.71 Estim Creat Clear Calc 50.91 Est GFR (MDRD) Af Amer 105 Est GFR (MDRD) Non-Af 87 BUN/Creatinine Ratio 29.7 H Glucose 142 H Lactic Acid Calcium 10.6 H Total Bilirubin 0.30 AST 62 H ALT 44 Alkaline Phosphatase 75 Troponin I High Sens 7 Total Protein 7.6 Albumin 3.7 Globulin 3.9 Albumin/Globulin Ratio 0.9 Prolactin 159.0 Urine Color Urine Clarity Urine pH Ur Specific [place] Urine Protein Urine Glucose (UA) Urine Ketones Urine Occult Blood Urine Nitrite Urine Bilirubin Urine Urobilinogen Ur Leukocyte Esterase Urine RBC Urine WBC Ur Squamous Epith Cells Urine Bacteria Urine Mucus Urine Opiates Screen Urine Methadone Screen Ur Barbiturates Screen Ur Phencyclidine Scrn Ur Amphetamines Screen MDMA (Ecstasy) Screen U Benzodiazepines Scrn Urine Cocaine Screen U Cannabinoids Screen Ur Drug Screen Comment Ethyl Alcohol 11.0 04/27/22 04/27/22 04/27/22 09:27 09:50 09:50 WBC RBC Hgb Hct MCV MCH MCHC RDW Std Deviation RDW Coeff of Melany Plt Count MPV Immature Gran % (Auto) Neut % (Auto) Lymph % (Auto) [place] % (Auto) Eos % (Auto) Baso % (Auto) Absolute Neuts (auto) Absolute Lymphs (auto) Nucleated RBC % Sodium Potassium Chloride Carbon Dioxide Anion Gap BUN Creatinine Estim Creat Clear Calc Est GFR (MDRD) Af Amer Est GFR (MDRD) Non-Af BUN/Creatinine Ratio Glucose Lactic Acid 6.5 H* Calcium Total Bilirubin AST ALT Alkaline Phosphatase Troponin I High Sens Total Protein Albumin Globulin Albumin/Globulin Ratio Prolactin Urine Color Yellow Urine Clarity Clear Urine pH 6.5 Ur Specific [place] 1.020 Urine Protein 30 H Urine Glucose (UA) Normal Urine Ketones 15 H Urine Occult Blood 10 H Urine Nitrite Negative Urine Bilirubin Negative Urine Urobilinogen Normal Ur Leukocyte Esterase Negative Urine RBC 0-5 SEEN Urine WBC 0 SEEN Ur Squamous Epith Cells 0-5 SEEN Urine Bacteria 0 SEEN Urine Mucus 0 SEEN Urine Opiates Screen NEGATIVE Urine Methadone Screen NEGATIVE Ur Barbiturates Screen NEGATIVE Ur Phencyclidine Scrn NEGATIVE Ur Amphetamines Screen NEGATIVE MDMA (Ecstasy) Screen NEGATIVE U Benzodiazepines Scrn NEGATIVE Urine Cocaine Screen NEGATIVE U Cannabinoids Screen NEGATIVE Ur Drug Screen Comment Ethyl Alcohol Radiography Diagnostic Testing: Clinical Impression(s) from Imaging Studies Chest X-Ray 04/27/22 09:39 IMPRESSION: Hyperinflation. The lungs are clear. Hiatal hernia. Electronically Signed: Raymundo Aldrich MD at 10:38 EDT , Brain CT 04/27/22 10:08 IMPRESSION: Chronic involutional changes of the brain. Electronically Signed: Raymundo Aldrich MD at 10:26 EDT , EKG Initial EKG: Comments: EKG done as part of medical work-up read by me shows sinus rhythm with borderline tachycardic rate at 101. No ventricular ectopy. No acute ST elevation or depression. OR interval QRS duration and QTC are normal. Discharge Plan Triage Chief Complaint: Mental Status Change ED Provider: Alex Elliott Dx/Rx/DC Orders Clinical Impression: Alcohol withdrawal seizure, Alcoholism, Left against medical advice Instructions: ED SEIZURE Alcohol Withdrawal, ED Withdrawal Alcohol Prescriptions: No Action duloxetine 60 MG capsule,delayed release(DR/EC) 60 mg PO DAILY@2100 Label Comments: for depression multivitamin Tablet 1 tab PO DAILY Qty: 30 0RF Primary Care Provider: Khai Palacios Chi Referrals: Khai Palacios Chi, MD [Primary Care Provider] - As soon as possible Disposition Disposition: Home, Self Care
[2022-04-27 10:26] LABS: Color, Urine Yellow (Yellow); Glucose, Dipstick Normal (Normal); Ketone-Dipstick 15 mg/dl (Negative); Leukocyte Esterase-Dipstick Negative /ul (Negative); Nitrite-Dipstick Negative (Negative); Occult Blood-Urine 10 /ul (Negative); Protein-Dipstick 30 mg/dl (Negative); Urine Bilirubin Dipstick Negative (Negative); Urine Clarity Clear (Clear); Urine Urobilinogen Normal (Normal); Urine pH 6.5 (5.0 - 8.0)
[2022-04-27 10:28] LABS: ALB/GLOB Ratio 0.9 RATIO (0.9-2.4); AST(SGOT) 62 U/L (15-37); Alanine Aminotransfer ALT/SGPT 44 U/L (13-56); Albumin, Serum 3.7 g/dL (3.2-5.0); Alkaline Phosphatase 75 U/L (45-117); Anion Gap 20 (5-15); BUN 21 mg/dL (7-18); BUN/Creat Ratio 29.7 RATIO (10-20); Calcium,Total 10.6 mg/dL (8.5-10.1); Chloride 100 mmol/L (98-107); Creatinine, Serum 0.71 mg/dL (0.55-1.02); EST Glomerular Filtration Rate 87 mL/min (>60); Est Glom Filt Rate - Afr Amer 105 mL/min (>60); Estimated Creatinine Clearance 50.91 ml/min; Globulin 3.9 g/dL (2.2-4.2); Glucose 142 mg/dL (74-106); Potassium 3.6 mmol/L (3.5-5.1); Protein, Total 7.6 g/dL (6.4-8.2); Sodium Level 140 mmol/L (136-145); Troponin-I HS 7 pg/mL (3.0-54.0)
[2022-04-27 10:31] LABS: Amphetamine Urine VISTA NEGATIVE (<1000 ng/mL); Barbiturate Urine VISTA NEGATIVE (< 200 ng/mL); Benzodiazepine Urine VISTA NEGATIVE (< 200 ng/mL); Cocaine Urine VISTA NEGATIVE (< 300 ng/mL); Ecstacy Urine VISTA NEGATIVE (< 500 ng/mL); Methadone Urine VISTA NEGATIVE (< 300 ng/mL); PCP Urine VISTA NEGATIVE (< 25 ng/mL); THC Urine VISTA NEGATIVE (< 50 ng/mL); Vista UDS pH Range 6
[2022-04-27 10:33] LABS: Red Blood Cells-Urine 0-5 SEEN /hpf (0-5); Squamous Epithelial Cells - UA 0-5 SEEN /hpf (5-10)
[2022-04-27 10:37] VITALS: BP 148/95; PULSE 100; RESP 16; O2SAT 97
[2022-04-27 10:37] LABS: Lactic Acid 6.5 mmol/L (0.4-1.9)
[2022-04-27 11:37] VITALS: BP 145/90; PULSE 98; RESP 18; O2SAT 96
[2022-04-27 14:08] LABS: Reflex Lactate? Y
== END 2022-04-27 11:43 | disposition left against medical advice (07) ==
PROVIDERS: Emergency Provider Emergency Medicine; PCP Family Medicine Geriatric Medicine; Visit Provider Emergency Medicine
DX: F10.239 Alcohol dependence with withdrawal, unspecified (principal); R56.9 Unspecified convulsions; Y90.0 Blood alcohol level of less than 20 mg/100 ml; F32.A Depression, unspecified; Z79.899 Other long term (current) drug therapy; Z53.29 Procedure and treatment not carried out because of patient's decision for other reasons
CPT/HCPCS: 70450; 71045; 80053; 80307; 81001; 82077; 83605; 84146; 84484; 85025; 93005; 96360; 99285; J7030; A4216

== ENCOUNTER 2022-09-14 13:48 | Emergency (ER) | payer MEDICARE, SELFPAY ==
[2022-09-14 13:48] VITALS: BP 136/78; PULSE 92; RESP 16; TEMP 36.2; O2SAT 92; BMI 28.5
--- NOTE | 2022-09-14 14:00 | CT_ITS ---
STUDY: CT CERVICAL SPINE WITHOUT CONTRAST REASON FOR EXAM: Female, 72 years old. Neck injury due to a fall. RADIATION DOSAGE (If Supplied By Facility): CTDIvol = ( 16.08 ) mGy, DLP = ( 330.37 ) mGycm TECHNIQUE: High resolution transaxial imaging was performed without contrast material. Sagittal and coronal images were reconstructed. Individualized dose optimization techniques were used for this CT. COMPARISON: None FINDINGS: Normal craniovertebral junction. There are degenerative changes of the anterior atlantoaxial articulation. Normal odontoid process. There is straightening of the normal cervical lordosis. Normal vertebral bodies and posterior osseous elements. C2-3: Normal endplates. Normal disc height and morphology. Normal central canal and intervertebral neuroforamina. C3-4: Mild degree of anterior spondylosis. No significant stenosis seen. C4-5: Marked degree of the disc space narrowing and spondylosis. Uncovertebral arthrosis. Bilateral neural foraminal stenosis more prominent on the left side. C5-6: Moderate degree of disc space narrowing and spondylosis. Uncovertebral arthrosis. Moderate degree of bilateral neural foraminal stenosis worse on the left side. C6-7: Normal endplates. Normal disc height and morphology. Normal central canal and intervertebral neuroforamina. C7-T1: Normal endplates. Normal disc height and morphology. Normal central canal and intervertebral neuroforamina. Normal visualized soft tissue structures. CT/Spine Cervical without Contras IMPRESSION: Multilevel degenerative changes, as described above. Electronically Signed: Raymundo Aldrich MD at 15:09 EST ,
--- NOTE | 2022-09-14 14:00 | CT_ITS ---
STUDY: CT BRAIN WITHOUT CONTRAST REASON FOR EXAM: Female, 72 years old. Head injury. RADIATION DOSAGE (If Supplied By Facility): CTDIvol = ( 44.99 ) mGy, DLP = ( 745.49 ) mGycm TECHNIQUE: Transaxial CT imaging of the brain was performed without administration of intravenous contrast material. Individualized dose optimization techniques were used for this CT. COMPARISON: Comparison is made with prior study dated 04/27/2022. FINDINGS: Normal soft tissue structures. Normal calvarium. There is moderate cerebral atrophy with widening of the extra-axial spaces and ventricular dilatation. There are areas of decreased attenuation within the white matter tracts of the supratentorial brain, consistent with microvascular disease changes. There are small punctate calcifications of the basal ganglia which are seen in the aging brain as a normal variant. Normal brainstem. There is mild cerebellar atrophy. Tiny acute subdural hematoma overlying the right frontal temporal lobes. No significant mass effect is seen. There are no findings of an acute ischemic infarction. Atherosclerotic calcification of the cavernous portions of the internal carotid arteries bilaterally. Normal visualized paranasal sinuses. CT/Brain/Head without Contrast IMPRESSION: Tiny acute subdural hematoma overlying the right frontal temporal lobes without significant mass effect. Electronically Signed: Raymundo Aldrich MD at 15:09 EST ,
[2022-09-14] MEDS: Lidocaine 1% (20 ml mdv) 20 ML Vial INFILT (14:14)
--- NOTE | 2022-09-14 14:26 | EDS_ITS ---
HPI HPI - Fall History of Present Illness Chief Complaint: Fall Informant: friend and EMS Narrative Narrative: 72-year-old female with history of alcoholism states that she fell last night and then fell again today. She was found by her friend unconscious on the floor. She has a laceration to her forehead. She admits to have having drinking today. She notes her tetanus is up-to-date. She denies any other injuries. Tetanus Immunization: <5 years PFSH PFSH Medical History AA (alcohol abuse) Alcohol abuse Anxiety Depression History of GI bleed Hyperlipidemia Hypothyroidism Tobacco dependence Tobacco use Allergy/AdvReac Type Severity Reaction Status Date / Time No Known Allergies Allergy Verified 04/27/22 09:50 Family History Mother Heart disease Hypertension Father Heart disease Hypertension Surgical History No history of previous surgery Social History household members: spouse Smoking Status: Current every day smoker tobacco type: cigarettes alcohol intake: current alcohol intake frequency: 3 or more drinks per day details: Alternates, ranges from 1 pint vodka, whiskey, beer, wine daily. substance use type: does not use ROS ROS ED Constitutional Constitutional ED: Denies chills or weight loss Eyes Eyes: Denies change in vision or diplopia ENT ENT ED: Denies ear pain, rhinorrhea or sore throat Cardiovascular Cardiovascular: Denies chest pain, orthopnea, palpitations or racing heartbeat Respiratory/Chest Respiratory/Chest: Denies cough, dyspnea or orthopnea Gastrointestinal Gastrointestinal: Denies abdominal pain, diarrhea, nausea or vomiting Genitourinary Genitourinary ED: Denies dysuria, hematuria or urinary frequency Musculoskeletal Musculoskeletal: Denies arthralgias or myalgias Integumentary Reports other Details: Laceration ; Denies abscess or rash Neurologic Neurologic: Reports headache(s); Denies weakness Psychiatric Psychiatric: Denies anxiety, depression, suicidal ideation or suicidal thoughts Endocrine Endocrinology: Denies polydipsia, polyphagia or polyuria Allergic/Immunologic Allergic/Immunologic ED: Denies mouth swelling, tongue swelling or urticaria EXAM Physical Exam Const Vital Signs: 09/14/22 13:48 Temperature 97.2 F L Temperature Source Temporal Pulse Rate 92 Respiratory Rate 16 Blood Pressure 136/78 H Blood Pressure Mean 97 Pulse Ox 92 Oxygen Delivery Method Room Air Positive well nourished and well developed Constitutional Narrative: Patient smells of alcohol General Appearance ED: well developed HEENT Reports normocephalic and moist mucous membranes HEENT Narrative: There is a linear 1.5 cm laceration to the left forehead. No palpable bony depression Eyes PERRL and EOMs intact bilaterally Neck no lymphadenopathy, supple and no JVD Resp normal respiratory effort and clear to auscultation bilaterally Cardio regular rate, regular rhythm and no murmurs GI normal to inspection, nondistended, normoactive bowel sounds and non-tender Palpation: soft Back/Spine no CVA tenderness and normal ROM Extremity normal to inspection General Extremety ED: Negative for edema General Extremity: Negative for edema Neuro oriented x3 and CN's II-XII intact bilaterally Sensorium / Orientation: alert Motor Exam: strength 5/5 throughout Psych mental status grossly normal Mood & Affect: Negative for depressed or tearful Skin no rashes or lesions noted and no wounds MDM MDM MDM Narrative Medical decision making narrative: Wound was locally anesthetized using 1% lidocaine. Is washed with Shur-Clens and explored it was closed using a total of 3 simple interrupted 4-0 Ethilon sutures. Wound care discussed with the patient. Stitches will need to be removed in [address] of the brain and cervical spine was obtained. These were negative for fracture. There was noted to be a small subdural on the right without mass-effect. Basic blood work showed a hemoglobin of 15.1 white count 5.9. Platelets are 146. Slight elevation of AST and ALT blood sugar was normal. Alcohol level was elevated at 340 Lab Data Attestation: I reviewed the patient's lab results. Labs: Laboratory Results - last 24 hr 09/14/22 09/14/22 09/14/22 14:05 14:05 14:05 WBC Cancelled Corrected WBC Cancelled RBC Cancelled Hgb Cancelled Hct Cancelled MCV Cancelled MCH Cancelled MCHC Cancelled RDW Std Deviation Cancelled RDW Coeff of Melany Cancelled Plt Count Cancelled MPV Cancelled Immature Gran % (Auto) Cancelled Neut % (Auto) Cancelled Lymph % (Auto) Cancelled [facility] % (Auto) Cancelled Eos % (Auto) Cancelled Baso % (Auto) Cancelled Absolute Neuts (auto) Cancelled Absolute Lymphs (auto) Cancelled Total Counted Cancelled Neutrophils % (Manual) Cancelled Band Neutrophils % Cancelled Lymphocytes % (Manual) Cancelled Monocytes % (Manual) Cancelled Eosinophils % (Manual) Cancelled Basophils % (Manual) Cancelled Metamyelocytes % Cancelled Myelocytes % Cancelled Promyelocytes % Cancelled Blast Cells % Cancelled Plasma Cell % (Manual) Cancelled Other Cells % Cancelled Nucleated RBC % Cancelled Nucleated RBCs/100 WBC Cancelled Differential Comment Cancelled Diff Path Review Cancelled Hypersegmented Neuts Cancelled Atypical Lymphocytes Cancelled Reactive Lymphocytes Cancelled Smudge Cells Cancelled Toxic Granulation Cancelled Toxic Vacuolation Cancelled Dohle Bodies Cancelled Tona Rods Cancelled Platelet Estimate Cancelled Plt Morphology Comment Cancelled RBC Morphology Cancelled Polychromasia Cancelled Hypochromasia Cancelled Poikilocytosis Cancelled Basophilic Stippling Cancelled Anisocytosis Cancelled Microcytosis Cancelled Macrocytosis Cancelled Spherocytes Cancelled Sickle Cells Cancelled Target Cells Cancelled Tear Drop Cells Cancelled Ovalocytes Cancelled Stomatocytes Cancelled [place] Bodies Cancelled Cardale Cells Cancelled Bite Cells Cancelled Crenated Cell Cancelled Acanthocytes (Spur) Cancelled Rouleaux Cancelled Schistocytes Cancelled Sodium 138 Potassium 4.7 Chloride 107 Carbon Dioxide 22.0 Anion Gap 9 BUN 14 Creatinine 0.66 Estim Creat Clear Calc 42.68 Est GFR (MDRD) Af Amer 114 Est GFR (MDRD) Non-Af 94 BUN/Creatinine Ratio 21.2 H Glucose 81 Calcium 8.3 L Total Bilirubin 0.70 AST 153 H ALT 73 H Alkaline Phosphatase 67 Total Protein 6.8 Albumin 3.0 L Globulin 3.8 Albumin/Globulin Ratio 0.8 L Ethyl Alcohol 340.0 H* 09/14/22 14:35 WBC 5.9 Corrected WBC RBC 4.33 Hgb 15.1 H Hct 43.1 MCV 99.5 H MCH 34.9 H MCHC 35.0 RDW Std Deviation 57.0 H RDW Coeff of Melany 15.5 H Plt Count 146 L MPV 9.6 Immature Gran % (Auto) 0.200 Neut % (Auto) 55.5 Lymph % (Auto) 31.6 [facility] % (Auto) 9.7 Eos % (Auto) 1.5 Baso % (Auto) 1.5 H Absolute Neuts (auto) 3.2 Absolute Lymphs (auto) 1.85 Total Counted Neutrophils % (Manual) Band Neutrophils % Lymphocytes % (Manual) Monocytes % (Manual) Eosinophils % (Manual) Basophils % (Manual) Metamyelocytes % Myelocytes % Promyelocytes % Blast Cells % Plasma Cell % (Manual) Other Cells % Nucleated RBC % 0 Nucleated RBCs/100 WBC Differential Comment Diff Path Review Hypersegmented Neuts Atypical Lymphocytes Reactive Lymphocytes Smudge Cells Toxic Granulation Toxic Vacuolation Dohle Bodies Tona Rods Platelet Estimate Plt Morphology Comment RBC Morphology Polychromasia Hypochromasia Poikilocytosis Basophilic Stippling Anisocytosis Microcytosis Macrocytosis Spherocytes Sickle Cells Target Cells Tear Drop Cells Ovalocytes Stomatocytes [place] Bodies Cardale Cells Bite Cells Crenated Cell Acanthocytes (Spur) Rouleaux Schistocytes Sodium Potassium Chloride Carbon Dioxide Anion Gap BUN Creatinine Estim Creat Clear Calc Est GFR (MDRD) Af Amer Est GFR (MDRD) Non-Af BUN/Creatinine Ratio Glucose Calcium Total Bilirubin AST ALT Alkaline Phosphatase Total Protein Albumin Globulin Albumin/Globulin Ratio Ethyl Alcohol Radiography Diagnostic Testing: Clinical Impression(s) from Imaging Studies Brain CT 09/14/22 14:00 IMPRESSION: Tiny acute subdural hematoma overlying the right frontal temporal lobes without significant mass effect. Electronically Signed: Raymundo Aldrich MD at 15:09 EST , Cervical Spine CT 09/14/22 14:00 IMPRESSION: Multilevel degenerative changes, as described above. Electronically Signed: Raymundo Aldrich MD at 15:09 EST , Discharge Plan Triage Chief Complaint: Fall ED Provider: Khanh Arias Dx/Rx/DC Orders Clinical Impression: Fall, Facial laceration, Alcohol abuse, Acute subdural hematoma Primary Care Provider: Khai Palacios Chi Referrals: Khai Palacios Chi, MD [Primary Care Provider] - 5 Days for suture removal Disposition Disposition: Home, Self Care
[2022-09-14 14:37] LABS: ALB/GLOB Ratio 0.8 RATIO (0.9-2.4); AST(SGOT) 153 U/L (15-37); Alanine Aminotransfer ALT/SGPT 73 U/L (13-56); Alkaline Phosphatase 67 U/L (45-117); Anion Gap 9 (5-15); BUN 14 mg/dL (7-18); BUN/Creat Ratio 21.2 RATIO (10-20); Calcium,Total 8.3 mg/dL (8.5-10.1); Chloride 107 mmol/L (98-107); Creatinine, Serum 0.66 mg/dL (0.55-1.02); EST Glomerular Filtration Rate 94 mL/min (>60); Est Glom Filt Rate - Afr Amer 114 mL/min (>60); Estimated Creatinine Clearance 42.68 ml/min; Globulin 3.8 g/dL (2.2-4.2); Glucose 81 mg/dL (74-106); Potassium 4.7 mmol/L (3.5-5.1); Protein, Total 6.8 g/dL (6.4-8.2); Sodium Level 138 mmol/L (136-145)
[2022-09-14 14:43] LABS: Absolute Lymphocyte Count 1.85 X10^3/uL (0.83-4.51); Absolute Neutrophil Count 3.2 X10^3/uL (2.0-7.7); Basophil# 0.09 X10^3/uL; Basophil% 1.5 % (0-1); Eosinophil# 0.09 X10^3/uL; Eosinophils% 1.5 % (0-5); Hematocrit 43.1 % (37-47); Hemoglobin 15.1 g/dL (12.0-15.0); Lymphocyte # 1.85 X10^3/ul (0.83-4.51); Lymphocyte % 31.6 % (19-41); Mean Corpuscular Hgb 34.9 pg (27.0-32.0); Mean Corpuscular Volume 99.5 fL (81-99); Mean Platelet Vol. 9.6 fl (6.2-12.0); Monocyte# 0.57 X10^3/uL; Monocyte% 9.7 % (0-10); NRBC Flagged by Analyzer 0 % (0-5); Neutrophil # 3.24 X10^3/uL (2.7-7.7); Neutrophil % 55.5 % (47-70); Platelet Count 146 K/mm3 (150-450); RBC Distribution Width CV 15.5 % (11.6-14.6); Red Blood Count 4.33 M/mm3 (4.2-5.4); White Blood Count 5.9 K/mm3 (4.4-11.0)
[2022-09-14 15:27] VITALS: BP 111/87; PULSE 89; RESP 13; TEMP 36.2; O2SAT 95
[2022-09-14 15:56] LABS: Partial Thromboplast Time 27.4 Seconds (24.1-36.2); Prothrombin Time (Protime)PT. 12.9 SECONDS (11.7-14.9)
--- NOTE | 2022-09-14 16:05 | ED.RN ---
REPORT GIVEN TO AP AT [facility]
== END 2022-09-14 16:18 | disposition short-term general hospital (02) ==
PROVIDERS: Emergency Provider Emergency Medicine; PCP Family Medicine Geriatric Medicine; Visit Provider Emergency Medicine
DX: I62.01 Nontraumatic acute subdural hemorrhage (principal); F10.10 Alcohol abuse, uncomplicated; E78.5 Hyperlipidemia, unspecified; W19.XXXA Unspecified fall, initial encounter; S01.81XA Laceration without foreign body of other part of head, initial encounter; E03.9 Hypothyroidism, unspecified; F32.A Depression, unspecified; F17.210 Nicotine dependence, cigarettes, uncomplicated; Z79.899 Other long term (current) drug therapy
CPT/HCPCS: 12011; 70450; 72125; 80053; 82077; 85025; 85610; 85730; 99285

== ENCOUNTER → 2022-12-12 | Outpatient (CLI) | payer MEDICARE, SELFPAY | END | disposition home or self-care (01) | LOC: POLAB3 13:30 | PROVIDERS: PCP Family Medicine Geriatric Medicine; Visit Provider Family Medicine Geriatric Medicine | DX: E55.9 Vitamin D deficiency, unspecified (principal); R53.83 Other fatigue ==

== ENCOUNTER 2022-12-16 15:44 | Inpatient (IN) | payer MEDICARE, SELFPAY ==
[2022-12-16] VITALS (21 sets, daily range): BP systolic 118–178; BP diastolic 64–116; PULSE 78–168; RESP 14–32; TEMP 36.4–38.8; O2SAT 94–100; BMI 27.9; BMI 27.3
--- NOTE | 2022-12-16 16:05 | CT_ITS ---
STUDY: CT BRAIN WITHOUT CONTRAST REASON FOR EXAM: Female, 72 years old. altered mental status, seizure Individualized dose optimization techniques were used for this CT. TECHNIQUE: Transaxial CT imaging of the brain was performed without administration of intravenous contrast material. COMPARISON: 09.14.22 FINDINGS: There are calcifications around the carotid artery. These are noted in the cavernous carotid arteries. Normal calvarium. Normal soft tissues. There is mild cerebral atrophy with widening of the extra-axial spaces and ventricular dilatation. There are areas of decreased attenuation within the white matter tracts of the supratentorial brain, consistent with microvascular disease changes. Normal basal ganglia and thalami. Normal brainstem. There is mild cerebellar atrophy. There is no intracranial hemorrhage. There are no findings of an acute ischemic infarction. Degenerative changes of the mandibular condyles. ASPECTS Score for Acute Strokes: 07/23 CT/Brain/Head without Contrast IMPRESSION: There are no acute findings. Chronic involutional changes of the brain. Electronically Signed: James Wilkins MD at 16:41 EST ,
--- NOTE | 2022-12-16 16:05 | EKG12_ITS ---
Test Reason : SEIZURE Blood Pressure : / mmHG Vent. Rate : 145 BPM Atrial Rate : 145 BPM P-R Int : 122 ms QRS Dur : 086 ms QT Int : 364 ms P-R-T Axes : 066 -57 059 degrees QTc Int : 565 ms Sinus tachycardia Left axis deviation Nonspecific ST abnormality Poor R wave progression Abnormal ECG Confirmed by YEHUDA LUCIANO, RAHUL ([id number]), loan expeditor KAELA ROBERTS ([id number]) on 12/17/2022 2:41:01 PM Referred By: DAVIDA/FILIBERTO Confirmed By:RAHUL BLACKMAN MD
--- NOTE | 2022-12-16 16:11 | EX.ED.DYSGE1 ---
HPI <DO Li - Last Filed: 12/16/22 18:07> History of Present Illness Chief Complaint: Seizure Narrative Narrative: 72-year-old female with PMH of alcohol abuse, SDH presents after seizure. History is gathered from paramedics and her boyfriend at bedside. He went to her house this afternoon and there was pee on the floor but she otherwise seemed normal. There were a bunch of empty liquor bottles and she drinks daily. He went to get fast food and when he came back she was on the couch having a tonic-clonic seizure. He called the paramedics and when they arrived they administered Versed and brought her in for evaluation. She has a questionable seizure history. He states she fell a couple months ago and had a traumatic subdural hemorrhage and thinks she may have had a seizure but is not sure if she is on antiepileptic medication. No recent illness. No known head trauma. PFSH <DO Li Last Filed: 12/16/22 18:07> PFSH Medical History AA (alcohol abuse) Alcohol abuse Anxiety Depression History of GI bleed Hyperlipidemia Hypothyroidism Polysubstance abuse Tobacco dependence Tobacco use Allergy/AdvReac Type Severity Reaction Status Date / Time No Known Allergies Allergy Verified 12/16/22 15:53 Family History Mother Heart disease Hypertension Father Heart disease Hypertension Surgical History No history of previous surgery Social History (Updated 12/16/22 @ 17:[address] Nidia Pham DO) household members: none Smoking Status: Current every day smoker tobacco type: cigarettes alcohol intake: current alcohol intake frequency: 3 or more drinks per day details: Unclear how much she has been drinking lately substance use type: does not use ROS <DO Li Last Filed: 12/16/22 18:07> ROS ED ROS Narrative Unable to obtain ROS secondary to patient's altered mental status EXAM <DO Li Last Filed: 12/16/22 18:07> Physical Exam Narrative Exam Narrative: CONST: Patient lying in bed with eyes closed. EYES: Normal inspection. 4 mm pupils equal round reactive bilaterally. ENT: Normal inspection, moist mucous membranes. NECK: Normal inspection. RESP: Tachypneic at 30/minute, lungs clear. CVS: Rapid but regular, no murmur, no gallop. ABD: Soft and nontender, no guarding or rebound, nondistended. SKIN: Color normal, no rash, warm, dry, intact. EXTREMITIES: Normal appearance, no pedal edema. NEURO: Lying in bed with eyes closed, no eye-opening, no verbal response, no motor response, GCS 3. PSYCH: Normal affect. Const Vital Signs: 12/16/22 15:45 12/16/22 15:54 12/16/22 16:44 Temperature 97.6 F L Temperature Source Temporal Pulse Rate 152 H 149 H 106 H Respiratory Rate 32 H 31 H 18 Blood Pressure 126/104 H 118/95 H 178/105 H Blood Pressure Mean 111 102 129 Pulse Ox 100 95 94 Oxygen Delivery Method Non-Rebreather Nasal Cannula Nasal Cannula Oxygen Flow Rate (L/min) 15 2 2 12/16/22 17:00 12/16/22 17:50 Temperature 97.8 F Temperature Source Temporal Pulse Rate 78 98 Respiratory Rate 18 16 Blood Pressure 174/64 H 177/100 H Blood Pressure Mean 100 125 Pulse Ox 94 97 Oxygen Delivery Method Nasal Cannula Nasal Cannula Oxygen Flow Rate (L/min) 2 2 <Dr. George Han MD - Last Filed: 12/16/22 18:45> Physical Exam Const Vital Signs: 12/16/22 15:45 12/16/22 15:54 12/16/22 16:44 Temperature 97.6 F L Temperature Source Temporal Pulse Rate 152 H 149 H 106 H Respiratory Rate 32 H 31 H 18 Blood Pressure 126/104 H 118/95 H 178/105 H Blood Pressure Mean 111 102 129 Pulse Ox 100 95 94 Oxygen Delivery Method Non-Rebreather Nasal Cannula Nasal Cannula Oxygen Flow Rate (L/min) 15 2 2 12/16/22 17:00 12/16/22 17:50 Temperature 97.8 F Temperature Source Temporal Pulse Rate 78 98 Respiratory Rate 18 16 Blood Pressure 174/64 H 177/100 H Blood Pressure Mean 100 125 Pulse Ox 94 97 Oxygen Delivery Method Nasal Cannula Nasal Cannula Oxygen Flow Rate (L/min) 2 2 MDM <DO Li - Last Filed: 12/16/22 18:07> MDM MDM Narrative Medical decision making narrative: Patient had questionable seizure today and was brought in by squad. She has a history of alcohol abuse. BP 126/104, heart rate in the 140s?150s in sinus rhythm, respiratory rate in the 30s. She was brought in on nonrebreather but weaned to 2 L nasal cannula and is 94%. She is lying in bed with her eyes closed and not responsive to voice or motor stimuli. She does not follow commands. GCS 3. She is protecting her airway. Differential includes seizure, intracranial hemorrhage, metabolic abnormality, infection, polysubstance/alcohol intoxication. Broad work-up was started. Labs show white count of 13.5, hemoconcentration 17.8. She may be dehydrated. She has new thrombocytopenia at 31. Sodium and potassium are normal, anion gap 18, creatinine 1.78 is elevated from baseline consistent with EBER. She also is hypercalcemic at 14.9. AST/ALT 427/71. Total bilirubin 3.2. Glucose is 154 with anion gap of 18. She was treated with a liter of fluids. Alcohol level is negative and urine tox positive for benzos and MDMA. UA is consistent with UTI so she was given Rocephin. CT brain and CXR negative for acute findings. Patient was reassessed at 1718 and is sitting in bed with her eyes open but still not following commands. I discussed the case with the hospitalist, Dr. Pham, who added on a TSH, ABG, and lactate and accepted the patient to the ICU. Patient did have another seizure at 1804 and I ordered IV Ativan 1 mg x 1 and a loading dose of Keppra. 45 minutes of critical care time was consumed by evaluation of the patient, reviewing labs and imaging, discussion with significant other and consultants. I have personally performed a face to face assessment of the patient and have reviewed the ESSIE Note. I performed a substantive portion of the visit including all aspects of the following. My herrera findings include: History is [72-year-old female history of a prior subdural bleed. Suspected history of prior seizures. Patient herself is unable to give any history. Her significant other is here he lives with her part of the week. But he is limited on what he knows of her past medical history. Today found her slumped over at the couch at home. She was brought in by squad. She does have a history of alcohol abuse. No reported recent fall or head trauma. No witnessed seizure today. Except she had a seizure and was quad ride and was given Versed prior to arrival. Patient is unable to give me any history.] Exam is [72-year-old vital signs are stable. Blood pressure 126/104 she is tachycardic 152. Pulse ox 100% on nonrebreather. H EENT exam eyes are closed. Pupils are 2 to 3 mm bilaterally. Nondilated. No signs of head or neck trauma. Neck nontender. No lymphadenopathy. Lungs clear to auscultation. Heart tachycardic no murmur. Abdomen soft nontender. Extremities she is not moving them. Neurologically her eyes are closed. Currently she is unresponsive. She does not answer questions or follow commands. She is currently not withdrawing.] Medical Decision Making [72-year-old decreased mental status. CAT scan and labs are pending. She may or may not of had a seizure. This could be an intracranial event. This could be from intoxication.] Other additions or changes: [None] Lab Data Labs: Laboratory Results - last 24 hr 12/16/22 12/16/22 12/16/22 16:14 16:14 16:14 WBC 13.5 H RBC 5.36 Hgb 17.8 H Hct 54.1 H MCV 100.9 H MCH 33.2 H MCHC 32.9 RDW Std Deviation 53.5 H RDW Coeff of Melany 14.3 Plt Count 31 L* MPV TNP Immature Gran % (Auto) 0.700 Neut % (Auto) 71.7 H Lymph % (Auto) 12.6 L [place] % (Auto) 10.4 H Eos % (Auto) 4.2 Baso % (Auto) 0.4 Absolute Neuts (auto) 9.7 H Absolute Lymphs (auto) 1.71 Nucleated RBC % 0 Differential Comment SCANNED Diff Path Review May foll PT INR APTT Sodium 138 Potassium 3.7 Chloride 93 L Carbon Dioxide 27.0 Anion Gap 18 H BUN 22 H Creatinine 1.78 H Estim Creat Clear Calc 23.98 Est GFR (MDRD) Af Amer 36 L Est GFR (MDRD) Non-Af 30 L BUN/Creatinine Ratio 12.4 Glucose 154 H Lactic Acid Calcium 14.9 H* Total Bilirubin 3.20 H AST 427 H ALT 71 H Alkaline Phosphatase 106 Total Creatine Kinase Total Protein 7.3 Albumin 3.1 L Globulin 4.2 Albumin/Globulin Ratio 0.7 L TSH Urine Color Urine Clarity Urine pH Ur Specific [place] Urine Protein Urine Glucose (UA) Urine Ketones Urine Occult Blood Urine Nitrite Urine Bilirubin Urine Urobilinogen Ur Leukocyte Esterase Urine RBC Urine WBC Ur Squamous Epith Cells Urine Bacteria Urine Mucus Urine Opiates Screen Urine Methadone Screen Ur Barbiturates Screen Ur Phencyclidine Scrn Ur Amphetamines Screen MDMA (Ecstasy) Screen U Benzodiazepines Scrn Urine Cocaine Screen U Cannabinoids Screen Ur Drug Screen Comment Ethyl Alcohol < 3.0 POC Glucose 12/16/22 12/16/22 12/16/22 16:15 16:19 16:19 WBC RBC Hgb Hct MCV MCH MCHC RDW Std Deviation RDW Coeff of Melany Plt Count MPV Immature Gran % (Auto) Neut % (Auto) Lymph % (Auto) [place] % (Auto) Eos % (Auto) Baso % (Auto) Absolute Neuts (auto) Absolute Lymphs (auto) Nucleated RBC % Differential Comment Diff Path Review PT INR APTT Sodium Potassium Chloride Carbon Dioxide Anion Gap BUN Creatinine Estim Creat Clear Calc Est GFR (MDRD) Af Amer Est GFR (MDRD) Non-Af BUN/Creatinine Ratio Glucose Lactic Acid 8.4 H* Calcium Total Bilirubin AST ALT Alkaline Phosphatase Total Creatine Kinase Total Protein Albumin Globulin Albumin/Globulin Ratio TSH 19.60 H Urine Color Urine Clarity Urine pH Ur Specific [place] Urine Protein Urine Glucose (UA) Urine Ketones Urine Occult Blood Urine Nitrite Urine Bilirubin Urine Urobilinogen Ur Leukocyte Esterase Urine RBC Urine WBC Ur Squamous Epith Cells Urine Bacteria Urine Mucus Urine Opiates Screen Urine Methadone Screen Ur Barbiturates Screen Ur Phencyclidine Scrn Ur Amphetamines Screen MDMA (Ecstasy) Screen U Benzodiazepines Scrn Urine Cocaine Screen U Cannabinoids Screen Ur Drug Screen Comment Ethyl Alcohol POC Glucose 147 H 12/16/22 12/16/22 12/16/22 16:19 16:19 16:29 WBC RBC Hgb Hct MCV MCH MCHC RDW Std Deviation RDW Coeff of Melany Plt Count MPV Immature Gran % (Auto) Neut % (Auto) Lymph % (Auto) [place] % (Auto) Eos % (Auto) Baso % (Auto) Absolute Neuts (auto) Absolute Lymphs (auto) Nucleated RBC % Differential Comment Diff Path Review PT 14.1 INR 1.1 APTT 23.5 L Sodium Potassium Chloride Carbon Dioxide Anion Gap BUN Creatinine Estim Creat Clear Calc Est GFR (MDRD) Af Amer Est GFR (MDRD) Non-Af BUN/Creatinine Ratio Glucose Lactic Acid Calcium Total Bilirubin AST ALT Alkaline Phosphatase Total Creatine Kinase 193 H Total Protein Albumin Globulin Albumin/Globulin Ratio TSH Urine Color Urine Clarity Urine pH Ur Specific [place] Urine Protein Urine Glucose (UA) Urine Ketones Urine Occult Blood Urine Nitrite Urine Bilirubin Urine Urobilinogen Ur Leukocyte Esterase Urine RBC Urine WBC Ur Squamous Epith Cells Urine Bacteria Urine Mucus Urine Opiates Screen NEGATIVE Urine Methadone Screen NEGATIVE Ur Barbiturates Screen NEGATIVE Ur Phencyclidine Scrn NEGATIVE Ur Amphetamines Screen NEGATIVE MDMA (Ecstasy) Screen POSITIVE H U Benzodiazepines Scrn POSITIVE H Urine Cocaine Screen NEGATIVE U Cannabinoids Screen NEGATIVE Ur Drug Screen Comment Ethyl Alcohol POC Glucose 12/16/22 16:29 WBC RBC Hgb Hct MCV MCH MCHC RDW Std Deviation RDW Coeff of Melany Plt Count MPV Immature Gran % (Auto) Neut % (Auto) Lymph % (Auto) [place] % (Auto) Eos % (Auto) Baso % (Auto) Absolute Neuts (auto) Absolute Lymphs (auto) Nucleated RBC % Differential Comment Diff Path Review PT INR APTT Sodium Potassium Chloride Carbon Dioxide Anion Gap BUN Creatinine Estim Creat Clear Calc Est GFR (MDRD) Af Amer Est GFR (MDRD) Non-Af BUN/Creatinine Ratio Glucose Lactic Acid Calcium Total Bilirubin AST ALT Alkaline Phosphatase Total Creatine Kinase Total Protein Albumin Globulin Albumin/Globulin Ratio TSH Urine Color Lilly Urine Clarity Cloudy Urine pH 6.5 Ur Specific [place] 1.015 Urine Protein 100 H Urine Glucose (UA) Normal Urine Ketones 5 H Urine Occult Blood 250 H Urine Nitrite Negative Urine Bilirubin Negative Urine Urobilinogen 1 H Ur Leukocyte Esterase 25 H Urine RBC 0-5 SEEN Urine WBC 10-25 SEEN Ur Squamous Epith Cells 0-5 SEEN Urine Bacteria 4+ Urine Mucus 0 SEEN Urine Opiates Screen Urine Methadone Screen Ur Barbiturates Screen Ur Phencyclidine Scrn Ur Amphetamines Screen MDMA (Ecstasy) Screen U Benzodiazepines Scrn Urine Cocaine Screen U Cannabinoids Screen Ur Drug Screen Comment Ethyl Alcohol POC Glucose Radiography Diagnostic Testing: Clinical Impression(s) from Imaging Studies Brain CT 12/16/22 16:05 IMPRESSION: There are no acute findings. Chronic involutional changes of the brain. Electronically Signed: James Wilkins MD at 16:41 EST , Chest X-Ray 12/16/22 16:32 IMPRESSION: There are no acute findings. Electronically Signed: James Wilkins MD at 16:43 EST , EKG Initial EKG: Attestation: I personally reviewed and interpreted this EKG as follows: Interpretation: Sinus Tachycardia Comments: ED attending interpretation of EKG is sinus tachycardia at 104 bpm, no ectopy or ST segment changes <Dr. George Han MD - Last Filed: 12/16/22 18:45> [facility] MDM Narrative Medical decision making narrative: Patient had questionable seizure today and was brought in by squad. She has a history of alcohol abuse. BP 126/104, heart rate in the 140s?150s in sinus rhythm, respiratory rate in the 30s. She was brought in on nonrebreather but weaned to 2 L nasal cannula and is 94%. She is lying in bed with her eyes closed and not responsive to voice or motor stimuli. She does not follow commands. GCS 3. She is protecting her airway. Differential includes seizure, intracranial hemorrhage, metabolic abnormality, infection, polysubstance/alcohol intoxication. Broad work-up was started. Labs show white count of 13.5, hemoconcentration 17.8. She may be dehydrated. She has new thrombocytopenia at 31. Sodium and potassium are normal, anion gap 18, creatinine 1.78 is elevated from baseline consistent with EBER. She also is hypercalcemic at 14.9. AST/ALT 427/71. Total bilirubin 3.2. Glucose is 154 with anion gap of 18. She was treated with a liter of fluids. Alcohol level is negative and urine tox positive for benzos and MDMA. UA is consistent with UTI so she was given Rocephin. CT brain and CXR negative for acute findings. Patient was reassessed at 1718 and is sitting in bed with her eyes open but still not following commands. I discussed the case with the hospitalist, Dr. Pham, who added on a TSH, ABG, and lactate and accepted the patient to the ICU. Patient did have another seizure at 1804 and I ordered IV Ativan 1 mg x 1 and a loading dose of Keppra. 45 minutes of critical care time was consumed by evaluation of the patient, reviewing labs and imaging, discussion with significant other and consultants. I have personally performed a face to face assessment of the patient and have reviewed the ESSIE Note. I performed a substantive portion of the visit including all aspects of the following. My herrera findings include: History is [72-year-old female history of a prior subdural bleed. Suspected history of prior seizures. Patient herself is unable to give any history. Her significant other is here he lives with her part of the week. But he is limited on what he knows of her past medical history. Today found her slumped over at the couch at home. She was brought in by squad. She does have a history of alcohol abuse. No reported recent fall or head trauma. No witnessed seizure today. Except she had a seizure and was quad ride and was given Versed prior to arrival. Patient is unable to give me any history.] Exam is [72-year-old vital signs are stable. Blood pressure 126/104 she is tachycardic 152. Pulse ox 100% on nonrebreather. H EENT exam eyes are closed. Pupils are 2 to 3 mm bilaterally. Nondilated. No signs of head or neck trauma. Neck nontender. No lymphadenopathy. Lungs clear to auscultation. Heart tachycardic no murmur. Abdomen soft nontender. Extremities she is not moving them. Neurologically her eyes are closed. Currently she is unresponsive. She does not answer questions or follow commands. She is currently not withdrawing.] Medical Decision Making [72-year-old decreased mental status. CAT scan and labs are pending. She may or may not of had a seizure. This could be an intracranial event. This could be from intoxication.] Other additions or changes: [None] Hospitalist came down to evaluate the patient. We are planning on admit the patient to the ICU. Prior to going upstairs she had a recurrent seizure. Was treated with IV Ativan. Will be loaded with Keppra. Due to her overall medical condition the hospitalist asked that I intubate the patient 1 to protect her airway and to for better management while in the ICU. Patient was given 20 of etomidate IV and 100 of succinylcholine. Intubated using a 7/2 ET tube with a curved blade. Bilateral breath sounds were heard. The tube was at 22 at the lips. Vital signs are stable. Pulse ox is in the high 90s on the ventilator. NG will be placed. A postintubation chest x-ray will be obtained. Postintubation chest x-ray showed the ET tube about 2 cm to 3 cm above the nikko in good position. Bilateral inflated lungs. The NG was also in appropriate position in the stomach. Lab Data Attestation: I reviewed the patient's lab results. Lab results narrative: CMP shows gap of 18. BUN 22 creatinine 1.78. Glucose 154. Calcium significantly elevated 14.9. Liver enzymes are up. CBC shows an elevated white count 13.5 H&H is 17.8 and 54. Platelet count is low at 31,000. Alcohol level is negative Urinalysis is infected with 10-25 white cells 4+ bacteria. Urine culture will be sent. Talk screen was positive for ecstasy and benzo is a this. Lilly Dyson [facility] Labs: Laboratory Results - last 24 hr 12/16/22 12/16/22 12/16/22 16:14 16:14 16:14 WBC 13.5 H RBC 5.36 Hgb 17.8 H Hct 54.1 H MCV 100.9 H MCH 33.2 H MCHC 32.9 RDW Std Deviation 53.5 H RDW Coeff of Melany 14.3 Plt Count 31 L* MPV TNP Immature Gran % (Auto) 0.700 Neut % (Auto) 71.7 H Lymph % (Auto) 12.6 L [place] % (Auto) 10.4 H Eos % (Auto) 4.2 Baso % (Auto) 0.4 Absolute Neuts (auto) 9.7 H Absolute Lymphs (auto) 1.71 Nucleated RBC % 0 Differential Comment SCANNED Diff Path Review May foll PT INR APTT Sodium 138 Potassium 3.7 Chloride 93 L Carbon Dioxide 27.0 Anion Gap 18 H BUN 22 H Creatinine 1.78 H Estim Creat Clear Calc 23.98 Est GFR (MDRD) Af Amer 36 L Est GFR (MDRD) Non-Af 30 L BUN/Creatinine Ratio 12.4 Glucose 154 H Lactic Acid Calcium 14.9 H* Total Bilirubin 3.20 H AST 427 H ALT 71 H Alkaline Phosphatase 106 Total Creatine Kinase Total Protein 7.3 Albumin 3.1 L Globulin 4.2 Albumin/Globulin Ratio 0.7 L TSH Urine Color Urine Clarity Urine pH Ur Specific [place] Urine Protein Urine Glucose (UA) Urine Ketones Urine Occult Blood Urine Nitrite Urine Bilirubin Urine Urobilinogen Ur Leukocyte Esterase Urine RBC Urine WBC Ur Squamous Epith Cells Urine Bacteria Urine Mucus Urine Opiates Screen Urine Methadone Screen Ur Barbiturates Screen Ur Phencyclidine Scrn Ur Amphetamines Screen MDMA (Ecstasy) Screen U Benzodiazepines Scrn Urine Cocaine Screen U Cannabinoids Screen Ur Drug Screen Comment Ethyl Alcohol < 3.0 POC Glucose 12/16/22 12/16/22 12/16/22 16:15 16:19 16:19 WBC RBC Hgb Hct MCV MCH MCHC RDW Std Deviation RDW Coeff of Melany Plt Count MPV Immature Gran % (Auto) Neut % (Auto) Lymph % (Auto) [place] % (Auto) Eos % (Auto) Baso % (Auto) Absolute Neuts (auto) Absolute Lymphs (auto) Nucleated RBC % Differential Comment Diff Path Review PT INR APTT Sodium Potassium Chloride Carbon Dioxide Anion Gap BUN Creatinine Estim Creat Clear Calc Est GFR (MDRD) Af Amer Est GFR (MDRD) Non-Af BUN/Creatinine Ratio Glucose Lactic Acid 8.4 H* Calcium Total Bilirubin AST ALT Alkaline Phosphatase Total Creatine Kinase Total Protein Albumin Globulin Albumin/Globulin Ratio TSH 19.60 H Urine Color Urine Clarity Urine pH Ur Specific [place] Urine Protein Urine Glucose (UA) Urine Ketones Urine Occult Blood Urine Nitrite Urine Bilirubin Urine Urobilinogen Ur Leukocyte Esterase Urine RBC Urine WBC Ur Squamous Epith Cells Urine Bacteria Urine Mucus Urine Opiates Screen Urine Methadone Screen Ur Barbiturates Screen Ur Phencyclidine Scrn Ur Amphetamines Screen MDMA (Ecstasy) Screen U Benzodiazepines Scrn Urine Cocaine Screen U Cannabinoids Screen Ur Drug Screen Comment Ethyl Alcohol POC Glucose 147 H 12/16/22 12/16/22 12/16/22 16:19 16:19 16:29 WBC RBC Hgb Hct MCV MCH MCHC RDW Std Deviation RDW Coeff of Melany Plt Count MPV Immature Gran % (Auto) Neut % (Auto) Lymph % (Auto) [place] % (Auto) Eos % (Auto) Baso % (Auto) Absolute Neuts (auto) Absolute Lymphs (auto) Nucleated RBC % Differential Comment Diff Path Review PT 14.1 INR 1.1 APTT 23.5 L Sodium Potassium Chloride Carbon Dioxide Anion Gap BUN Creatinine Estim Creat Clear Calc Est GFR (MDRD) Af Amer Est GFR (MDRD) Non-Af BUN/Creatinine Ratio Glucose Lactic Acid Calcium Total Bilirubin AST ALT Alkaline Phosphatase Total Creatine Kinase 193 H Total Protein Albumin Globulin Albumin/Globulin Ratio TSH Urine Color Urine Clarity Urine pH Ur Specific [place] Urine Protein Urine Glucose (UA) Urine Ketones Urine Occult Blood Urine Nitrite Urine Bilirubin Urine Urobilinogen Ur Leukocyte Esterase Urine RBC Urine WBC Ur Squamous Epith Cells Urine Bacteria Urine Mucus Urine Opiates Screen NEGATIVE Urine Methadone Screen NEGATIVE Ur Barbiturates Screen NEGATIVE Ur Phencyclidine Scrn NEGATIVE Ur Amphetamines Screen NEGATIVE MDMA (Ecstasy) Screen POSITIVE H U Benzodiazepines Scrn POSITIVE H Urine Cocaine Screen NEGATIVE U Cannabinoids Screen NEGATIVE Ur Drug Screen Comment Ethyl Alcohol POC Glucose 12/16/22 16:29 WBC RBC Hgb Hct MCV MCH MCHC RDW Std Deviation RDW Coeff of Melany Plt Count MPV Immature Gran % (Auto) Neut % (Auto) Lymph % (Auto) [place] % (Auto) Eos % (Auto) Baso % (Auto) Absolute Neuts (auto) Absolute Lymphs (auto) Nucleated RBC % Differential Comment Diff Path Review PT INR APTT Sodium Potassium Chloride Carbon Dioxide Anion Gap BUN Creatinine Estim Creat Clear Calc Est GFR (MDRD) Af Amer Est GFR (MDRD) Non-Af BUN/Creatinine Ratio Glucose Lactic Acid Calcium Total Bilirubin AST ALT Alkaline Phosphatase Total Creatine Kinase Total Protein Albumin Globulin Albumin/Globulin Ratio TSH Urine Color Lilly Urine Clarity Cloudy Urine pH 6.5 Ur Specific [place] 1.015 Urine Protein 100 H Urine Glucose (UA) Normal Urine Ketones 5 H Urine Occult Blood 250 H Urine Nitrite Negative Urine Bilirubin Negative Urine Urobilinogen 1 H Ur Leukocyte Esterase 25 H Urine RBC 0-5 SEEN Urine WBC 10-25 SEEN Ur Squamous Epith Cells 0-5 SEEN Urine Bacteria 4+ Urine Mucus 0 SEEN Urine Opiates Screen Urine Methadone Screen Ur Barbiturates Screen Ur Phencyclidine Scrn Ur Amphetamines Screen MDMA (Ecstasy) Screen U Benzodiazepines Scrn Urine Cocaine Screen U Cannabinoids Screen Ur Drug Screen Comment Ethyl Alcohol POC Glucose Radiography Diagnostic Testing: Clinical Impression(s) from Imaging Studies Brain CT 12/16/22 16:05 IMPRESSION: There are no acute findings. Chronic involutional changes of the brain. Electronically Signed: James Wilkins MD at 16:41 EST , Chest X-Ray 12/16/22 16:32 IMPRESSION: There are no acute findings. Electronically Signed: James Wilkins MD at 16:43 EST , <Dr. George Han MD - Last Filed: 12/16/22 18:45> Intubations Intubation Method: orotracheal Intubation Verification: Positive color change and Bilateral breath sounds confirmed Intubation Complications: no complications Other Procedures Procedure(s): Patient pretreated with 20 of etomidate IV and 100 of succinylcholine. Bilateral breath sounds were heard. Pulse ox was in the high 90s postintubation. She be placed on a ventilator. Admitted to the ICU. <Dr. George Han MD - Last Filed: 12/16/22 18:45> Critical Care Time Critical Care Time: Yes Critical care time (excluding procedures): 30-74 minutes, Including time spent:, Discussing w/Patient &/or Family/Laser Operator, Discussing w/Consultants, Arranging Admission or Transfer, Performing Direct Patient Care at Bedside and - (35 min) Discharge Plan Dx/Rx/DC Orders Clinical Impression: Acute UTI, Acute alteration in mental status, Thrombocytopenia, Hypercalcemia, History of ETOH abuse, Polysubstance abuse, Acute kidney injury, Seizure, Post-ictal state, Abnormal transaminases, Acute dehydration, Acidosis, lactic Disposition Disposition: Acute Care Hospital [facility] Discharge Date/Time: 12/16/22 18:41
[2022-12-16] MEDS: 0.9% Normal Saline 1,000 ML 999 ML IV ×2 (16:20→17:15)
[2022-12-16 16:27] LABS: Absolute Lymphocyte Count 1.71 X10^3/uL (0.83-4.51); Absolute Neutrophil Count 9.7 X10^3/uL (2.0-7.7); Basophil# 0.06 X10^3/uL; Basophil% 0.4 % (0-1); Eosinophil# 0.57 X10^3/uL; Eosinophils% 4.2 % (0-5); Hematocrit 54.1 % (37-47); Hemoglobin 17.8 g/dL (12.0-15.0); Lymphocyte # 1.71 X10^3/ul (0.83-4.51); Lymphocyte % 12.6 % (19-41); Mean Corp Hgb Conc 32.9 g/dL (32-36); Mean Corpuscular Hgb 33.2 pg (27.0-32.0); Mean Corpuscular Volume 100.9 fL (81-99); Monocyte# 1.41 X10^3/uL; Monocyte% 10.4 % (0-10); NRBC Flagged by Analyzer 0 % (0-5); Neutrophil # 9.68 X10^3/uL (2.7-7.7); Neutrophil % 71.7 % (47-70); POSITIVE COUNT YES; RBC Distribution Width CV 14.3 % (11.6-14.6); RBC Distribution Width SD 53.5 fl (35.1-43.9); Red Blood Count 5.36 M/mm3 (4.2-5.4); White Blood Count 13.5 K/mm3 (4.4-11.0)
--- NOTE | 2022-12-16 16:32 | RAD_ITS ---
STUDY: XR Chest 1 View 12/16/2022 4:23 PM REASON FOR EXAM: Female, 72 years old. CHEST PAIN altered ment COMPARISON: 04/27/22 TECHNIQUE: XR Chest 1 View FINDINGS: There is no demonstrated pleural abnormality. Normal heart size. Normal mediastinum. Normal collins. Prominent appearing increased interstitial lung markings. Normal visualized pulmonary arteries. There is atherosclerotic calcification of the aortic arch with tortuosity. There are diffuse degenerative changes of the visualized thoracic spine. There is degenerative osteoarthritis of the bilateral shoulders. There is no demonstrated abnormality of the visualized soft tissue structures of the upper abdomen. RAD/Chest 1 View (Portable) IMPRESSION: There are no acute findings. Electronically Signed: James Wilkins MD at 16:43 EST ,
[2022-12-16 16:36] LABS: Mucous, Urine 0 SEEN /hpf (<or=2+)
[2022-12-16 16:41] LABS: Color, Urine Amber (Yellow); Glucose, Dipstick Normal (Normal); Ketone-Dipstick 5 mg/dl (Negative); Leukocyte Esterase-Dipstick 25 /ul (Negative); Nitrite-Dipstick Negative (Negative); Occult Blood-Urine 250 /ul (Negative); Protein-Dipstick 100 mg/dl (Negative); Specific Gravity, Urine 1.015 (1.002-1.030); Urine Bilirubin Dipstick Negative (Negative); Urine Clarity Cloudy (Clear); Urine Urobilinogen 1 mg/dl (Normal); Urine pH 6.5 (5.0 - 8.0)
[2022-12-16 16:45] LABS: Bedside Glucose 147 mg/dL (74-106)
[2022-12-16 16:46] LABS: ALB/GLOB Ratio 0.7 RATIO (0.9-2.4); AST(SGOT) 427 U/L (15-37); Alanine Aminotransfer ALT/SGPT 71 U/L (13-56); Albumin, Serum 3.1 g/dL (3.2-5.0); Alkaline Phosphatase 106 U/L (45-117); Anion Gap 18 (5-15); BUN 22 mg/dL (7-18); BUN/Creat Ratio 12.4 RATIO (10-20); Calcium,Total 14.9 mg/dL (8.5-10.1); Chloride 93 mmol/L (98-107); Creatinine, Serum 1.78 mg/dL (0.55-1.02); EST Glomerular Filtration Rate 30 mL/min (>60); Est Glom Filt Rate - Afr Amer 36 mL/min (>60); Estimated Creatinine Clearance 23.98 ml/min; Globulin 4.2 g/dL (2.2-4.2); Glucose 154 mg/dL (74-106); Potassium 3.7 mmol/L (3.5-5.1); Protein, Total 7.3 g/dL (6.4-8.2); Sodium Level 138 mmol/L (136-145)
[2022-12-16 16:52] LABS: Bacteria 4+ /hpf (None Seen); Red Blood Cells-Urine 0-5 SEEN /hpf (0-5); Squamous Epithelial Cells - UA 0-5 SEEN /hpf (5-10); White Blood Cells 10-25 SEEN /hpf (0-5)
[2022-12-16 16:54] LABS: Differential Indicated SCAN CRITERIA MET; Platelet Count 31 K/mm3 (150-450)
[2022-12-16 16:56] LABS: Amphetamine Urine VISTA NEGATIVE (<1000 ng/mL); Barbiturate Urine VISTA NEGATIVE (< 200 ng/mL); Benzodiazepine Urine VISTA POSITIVE (< 200 ng/mL); Cocaine Urine VISTA NEGATIVE (< 300 ng/mL); Ecstacy Urine VISTA POSITIVE (< 500 ng/mL); Methadone Urine VISTA NEGATIVE (< 300 ng/mL); PCP Urine VISTA NEGATIVE (< 25 ng/mL); THC Urine VISTA NEGATIVE (< 50 ng/mL); Vista UDS pH Range 5
[2022-12-16 16:57] LABS: Differential Comment SCANNED
[2022-12-16 16:58] LABS: Alcohol, Blood (Medical)-Serum < 3.0 mg/dL
[2022-12-16] MEDS: Ceftriaxone 1 GM/50 ML BAG IV (17:16)
--- NOTE | 2022-12-16 17:23 | HP.PCM.HOS_ITS ---
HPI - General General Date of Admission: 12/16/22 Date of Service: 12/16/22 Chief Complaint: Seizure HPI Narrative JAZMIN JOHNSON, is a 72 F who presented to the emergency department at [facility] on 12/16/2022 for seizure. The patient is not able to give any history and she is alone at the time of my evaluation. All history was obtained from the emergency department physician and PA. She evidently has a history of alcohol abuse with previous subdural hematoma. Her boyfriend was reported to go to her house this afternoon and there was urine all over the floor but she otherwise seem normal. He did find a bunch of empty liquor bottles on the floor and he did report that she typically drinks daily. He went to get fast food and when he came back she was on the couch having a tonic-clonic seizure. Time of seizure is unknown. He called the paramedics and when they arrived they administered Versed. He reported she had a fall a couple of months ago and had a traumatic subdural hematoma and thinks she may have had a seizure at that point but is unsure of what medication she takes and if she is on any antiepilep tic medication. She does have a history of DTs. And appear she has had multiple admissions for alcohol detox with very short periods of sobriety in the past. Vital signs on presentation show a temperature of 97.6, heart rate 152 that reduced to 78 by the time of my examination, blood pressure 178/64, respiratory rate anywhere from 18-32, sats are 94 to 95% on 2 L nasal cannula. CBC shows a leukocytosis with a white count of 13.5 with a slight left shift having a 71.7% neutrophilia. Hemoglobin is elevated at 17.8 and her platelet count is low at 31,000 which is new. Coags were ordered by me and pending at the time of admission. Her chemistry panel was markedly abnormal with an elevated anion gap at 18, BUN of 22 and a serum creatinine of 1.78 (baseline serum creatinine appears to be between 0.5 and 0.7), Glu was 154, calcium was elevated at 14.9 and had been normal previously, AST was 427 and ALT was 71 consistent with an alcoholic hepatitis pattern. Bilirubin was elevated at 3.2. I obtained a CK but this was pending on admission. Lactic acid was pending on admission. TSH w as 19.6. Her UA was consistent with infection having 250 of occult blood, leuk esterase, 10-25 white cells per high-power field and 4+ bacteria. Her toxicology screen was positive for ecstasy and benzodiazepines. Again I am unclear what her home prescriptions are. Alcohol level was less than 3. CT of the brain showed no acute findings with chronic involutional changes. Chest x- ray showed no acute findings. EKG showed sinus tachycardia with a normal P interval but a prolonged QTc at 562. There were no ST-T wave changes consistent with acute ischemia. PFSH Medical History AA (alcohol abuse) Alcohol abuse Anxiety Depression History of GI bleed Hyperlipidemia Hypothyroidism Polysubstance abuse Tobacco dependence Tobacco use Allergy/AdvReac Type Severity Reaction Status Date / Time No Known Allergies Allergy Verified 12/16/22 15:53 Family History Mother Heart disease Hypertension Father Heart disease Hypertension Surgical History No history of previous surgery Social History (Updated 12/16/22 @ 17:[address] Nidia Pham DO) household members: none Smoking Status: Current every day smoker tobacco type: cigarettes alcohol intake: current alcohol intake frequency: 3 or more drinks per day details: Unclear how much she has been drinking lately substance use type: does not use ROS ROS Narrative Is obtunded at the time of my exam and there is nobody at the bedside Review of Systems ROS Unobtainable: due to mental status Vital Signs Vital Signs Vital Signs: 12/16/22 15:45 12/16/22 15:54 12/16/22 16:44 Temperature 97.6 F L Temperature Source Temporal Pulse Rate 152 H 149 H 106 H Respiratory Rate 32 H 31 H 18 Blood Pressure 126/104 H 118/95 H 178/105 H Blood Pressure Mean 111 102 129 Pulse Ox 100 95 94 Oxygen Delivery Method Non-Rebreather Nasal Cannula Nasal Cannula Oxygen Flow Rate (L/min) 15 2 2 12/16/22 17:00 Temperature Temperature Source Pulse Rate 78 Respiratory Rate 18 Blood Pressure 174/64 H Blood Pressure Mean 100 Pulse Ox 94 Oxygen Delivery Method Nasal Cannula Oxygen Flow Rate (L/min) 2 Weight Weight: 71.5 kg Body Mass Index (BMI) 27.9 Physical Exam Const Constitutional Narrative: Extremely disheveled, overweight, older white female, lying in bed, obtunded but eyes open Orientation / Consciousness: lethargic HEENT normocephalic, head/scalp atraumatic and moist oral mucous membranes Eyes conjunctivae normal Eyes Narrative: Pupils were equal bilaterally but sluggish, no scleral icterus Neck no lymphadenopathy, supple, no JVD and no carotid bruits Neck Narrative: Trachea midline, no thyroid enlargement Resp normal respiratory effort, no retractions, no use of accessory muscles and No clear to auscultation bilaterally Resp Narrative: Diffusely diminished with few crackles in the right base Auscultation: crackles; Negative for rhonchi or wheezes Cardio regular rhythm, S1 normal heart sound, S2 normal heart sound, no murmurs, no rub, no gallops and no clicks Cardio Narrative: Slight tachycardia GI GI Narrative: Hepatomegaly, no distention, bowel sounds are normoactive, abdomen is soft and did not appear to be tender Extremity Extremity Narrative: Extremities are unclean, feet are extremely dry with cracking, no cyanosis or clubbing, no edema Skin No no rashes or lesions noted, no wounds, No skin turgor normal, no jaundice, no petechiae and no mottling Skin Narrative: Patchy erythematous rash on face, neck and upper chest and just above the xiphoid process between her breasts, nails are dirty, skin turgor with tenting, no specific wounds noted Neuro moves all extremities and no focal motor deficits Neuro Narrative: Obtunded, patient withdraws to noxious stimulus in all 4 extremities, unable to assess cranial nerves, reflexes are 2+ bilateral upper and lower extremities Speech: Negative for speech normal Psych Negative for affect normal Psych Narrative: Unable to assess Results Lab / Micro Data Result Diagrams: 12/16/22 16:14 12/16/22 16:14 Labs: Laboratory Results - last 24 hr 12/16/22 16:14: WBC 13.5 H, RBC 5.36, Hgb 17.8 H, Hct 54.1 H, MCV 100.9 H, MCH 33.2 H, MCHC 32.9, RDW Std Deviation 53.5 H, RDW Coeff of Melany 14.3, Plt Count 31 L*, MPV TNP, Immature Gran % (Auto) 0.700, Neut % (Auto) 71.7 H, Lymph % (Auto) 12.6 L, Gregory % (Auto) 10.4 H, Eos % (Auto) 4.2, Baso % (Auto) 0.4, Absolute Neuts (auto) 9.7 H, Absolute Lymphs (auto) 1.71, Nucleated RBC % 0, Differential Comment SCANNED, Diff Path Review February12/16/22 16:14: Sodium 138, Potassium 3.7, Chloride 93 L, Carbon Dioxide 27.0, Anion Gap 18 H, BUN 22 H, Creatinine 1.78 H, Estim Creat Clear Calc 23.98, Est GFR (MDRD) Af Amer 36 L, Est GFR (MDRD) Non-Af 30 L, BUN/Creatinine Ratio 12.4, Glucose 154 H, Calcium 14.9 H*, Total Bilirubin 3.20 H, AST 427 H, ALT 71 H, Alkaline Phosphatase 106, Total Protein 7.3, Albumin 3.1 L, Globulin 4.2, Albumin/Globulin Ratio 0.7 L 12/16/22 16:14: Ethyl Alcohol < 3.0 12/16/22 16:15: POC Glucose 147 H 12/16/22 16:29: Urine Opiates Screen NEGATIVE, Urine Methadone Screen NEGATIVE, Ur Barbiturates Screen NEGATIVE, Ur Phencyclidine Scrn NEGATIVE, Ur Amphetamines Screen NEGATIVE, MDMA (Ecstasy) Screen POSITIVE H, U Benzodiazepines Scrn POSITIVE H, Urine Cocaine Screen NEGATIVE, U Cannabinoids Screen NEGATIVE, Ur D rug Screen Comment 12/16/22 16:29: Urine Color Lilly, Urine Clarity Cloudy, Urine pH 6.5, Ur Specific Breaks 1.015, Urine Protein 100 H, Urine Glucose (UA) Normal, Urine Ketones 5 H, Urine Occult Blood 250 H, Urine Nitrite Negative, Urine Bilirubin Negative, Urine Urobilinogen 1 H, Ur Leukocyte Esterase 25 H, Urine RBC 0-5 SEEN, Urine WBC 10-25 SEEN, Ur Squamous Epith Cells 0-5 SEEN, Urine Bacteria 4+, Urine Mucus 0 SEEN Radiology Impression Brain CT 12/16/22 16:05 IMPRESSION: There are no acute findings. Chronic involutional changes of the brain. Electronically Signed: James Wilkins MD at 16:41 EST , Chest X-Ray 12/16/22 16:32 IMPRESSION: There are no acute findings. Electronically Signed: James Wilkins MD at 16:43 EST Reading Location ID and State: [facility] / [place] , Service support , Assessment & Plan Assessment/Plan (1) Seizure: (2) Acute kidney injury: (3) Acute UTI: (4) Thrombocytopenia: (5) Hypercalcemia: (6) Alcoholic hepatitis: (7) Toxic metabolic encephalopathy: (8) Leukocytosis: (9) Erythrocytosis: (10) Hyperbilirubinemia: (11) Lactic acidosis: (12) Acute respiratory failure: PLAN: Plan Acute seizure -Given Versed by the squad -Suspect alcohol withdrawal -CT of the head was unremarkable -Consider MRI depending on ongoing mental status -Check EEG -Patient with another seizure in the emergency department therefore we will load with Keppra and continue Keppra -Propofol for sedation -Intubated for airway protection -As needed Ativan Acute respiratory failure -Intubated for airway protection due to ongoing seizing -Repeat ABG in 2 hours after intubation to assess for stability -Pulmonary/critical care medicine consulted Acute alcohol withdrawal -We will dose with high-dose IV thiamine for 3 days -Folic acid -Propofol -As needed Ativan -Patient on Keppra for seizures -180 consultation with patient's extubated and mentally able to participate Alcoholic hepatitis/hyperbilirubinemia -Liver enzyme elevation is consistent with alcohol use pattern -We will trend -Check ultrasound of liver and spleen Elevated anion gap -Lactic acid elevated and I suspect this is related to her seizure activity -Repeat CMP at 2100 -No signs of ketosis Acute thrombocytopenia -This finding is new -Coags were relatively normal -Check ultrasound of spleen and liver -Patient is high risk for having liver disease and splenomegaly related to her alcoholism EBER -Baseline serum creatinine is between 0.5 and 0.7 -Serum creatinine 1.79 on admission -Aggressive IV fluids with normal saline at 100 cc/h -Repeat BMP in a.m. Urinary tract infection -UA is consistent with UTI -Unasyn to cover her urinary tract infection as well as concern for aspiration with seizure activity Hypercalcemia -Etiology is unclear -Check intact PTH -Check vitamin D level -Aggressive hydration -Repeat CMP at 2100 -May be contributing to her depressed mental status Metabolic/toxic encephalopathy -Suspect multifactorial -Baseline is unclear -Continue to monitor Prolonged QTc -Check a.m. magnesium and phosphorus level -Repeat EKG in a.m. Erythrocytosis -Suspect multifactorial -Appears dry but also has a history of tobacco abuse and it appears that she has been elevated previously -Probably should have pulmonary function studies after discharge History of hypothyroidism with abnormal TSH -TSH assessed on admission and found to be 19.6 -We will dose 50 mcg of Synthroid IV x1 today and then repeat weekly -Check free T4 History of GI bleed -IV Protonix 40 mg twice daily given suppressed platelet counts -Repeat CBC in a.m. History of hyperlipidemia -Patient is not currently on any medications to her knowledge Anxiety/depression -We are unclear what medications patient takes at baseline -Hold all QTc prolonging medications -Do not use Haldol Tobacco abuse -We will offer nicotine patch once patient is awake -Recommend cessation -Needs outpatient PFTs DVT prophylaxis -SCDs only -Platelet count is less than 50,000 therefore will defer chemoprophylaxis at this point CODE STATUS -Full code but unverified as I was unable to have a conversation with the p atient at admission secondary to her mental status and there was no one available to discuss at the bedside Charges/Coding Visit Charges Inpatient E&M: 87425 Init Hosp L3
[2022-12-16 17:51] LABS: International Normalized Ratio 1.1; Prothrombin Time (Protime)PT. 14.1 SECONDS (11.7-14.9)
[2022-12-16 17:52] LABS: Partial Thromboplast Time 23.5 Seconds (24.1-36.2)
[2022-12-16 17:56] LABS: Lactic Acid 8.4 mmol/L (0.4-1.9)
[2022-12-16 18:00] LABS: CPK Total, Creatine Kinase 193 U/L (26-192)
[2022-12-16] MEDS: LORazepam 2 MG/ML Syringe 1 MG IV (18:09)
[2022-12-16 18:11] LABS: Base Excess 2 mmol/L (-2 to +2); Bicarbonate 26.4 mmol/L (22-26); Blood Gas Specimen Type ART; PO2 90 mmHG (75-100); SITE R Radial; SO2 97 % (95-99); Total Carbon Dioxide 28 mmol/L; pCO2 38.2 mmHg (35-45); pH 7.45 (7.35-7.45)
--- NOTE | 2022-12-16 18:22 | ED.RN ---
1818: DR. HIGUERA, RT AT BEDSIDE. 1819: 20MG OF ETOMIDATE GIVEN, AND 100MG OF SUCCINYLCHOLINE. 1821: DR. HIGUERA PLACES AT [facility]. 1823: 16F OG PLACED
--- NOTE | 2022-12-16 18:30 | RAD_ITS ---
STUDY: XR Chest 1 View 12/16/2022 6:27 PM REASON FOR EXAM: Female, 72 years old. CHEST PAIN post intubation COMPARISON: Study done earlier today. TECHNIQUE: XR Chest 1 View FINDINGS: There is no demonstrated pleural abnormality. There is an NGT and ET tube in place. There is no pneumothorax. There is an elevated right hemidiaphragm. Normal heart size. Normal mediastinum. Normal collins. Prominent appearing increased interstitial lung markings. Normal visualized pulmonary arteries. There is atherosclerotic calcification of the aortic arch with tortuosity. There are diffuse degenerative changes of the visualized thoracic spine. There is degenerative osteoarthritis of the bilateral shoulders. There is no demonstrated abnormality of the visualized soft tissue structures of the upper abdomen. RAD/Chest 1 View (Portable) IMPRESSION: There are no acute findings. There is a feeding tube/ nasogastric tube noted. The tip is not seen because it extends off the film. Electronically Signed: James Wilkins MD at 18:52 EST ,
--- NOTE | 2022-12-16 18:32 | EKG12_ITS ---
Test Reason : Blood Pressure : / mmHG Vent. Rate : 112 BPM Atrial Rate : 112 BPM P-R Int : 148 ms QRS Dur : 084 ms QT Int : 340 ms P-R-T Axes : 077 -62 032 degrees QTc Int : 464 ms Sinus tachycardia Left anterior fascicular block Abnormal ECG When compared with ECG of 16-DEC-2022 15:56, MANUAL COMPARISON REQUIRED, DATA IS UNCONFIRMED Confirmed by DAKOTAH LUCIANO, MARILIA ([id number]), map editor KAELA ROBERTS ([id number]) on 12/18/2022 8:04:46 AM Referred By: DOMENIC Confirmed By:MARILIA CLAIRE MD
[2022-12-16] MEDS: levETIRAcetam IV 1,000 MG/100 ML BAG 400 MG IV (18:36)
[2022-12-16] MEDS: Propofol 10MG/Ml 1,000 MG/100 ML Bottle 4.3 MG CONT INF (18:45)
--- NOTE | 2022-12-16 19:47 | RAD_ITS ---
EXAM: XR ABDOMEN, 1 VIEW CLINICAL INDICATION: OG placement TECHNIQUE: Frontal supine view of the abdomen/pelvis. This report was created using [employer] report generation technology. COMPARISON: None. FINDINGS: LOWER THORAX: No acute pathology. GASTROINTESTINAL TRACT: Unremarkable. Non-obstructive. No bowel or stomach distention. ORGANS: Unremarkable as visualized. No organomegaly. No abnormal calcifications. BONES/JOINTS: Degenerative findings of the lumbar spine. SOFT TISSUES: No acute pathology. TUBES, LINES AND DEVICES: There is a feeding tube/ nasogastric tube noted. The tip is in the region of the stomach. RAD/Abdomen Single View (Portable) IMPRESSION: There is a feeding tube/ nasogastric tube noted. The tip is in the region of the stomach. Electronically Signed: James Wilkins MD at 20:25 EST ,
[2022-12-16] MEDS: 0.9% Normal Saline 1,000 ML 100 ML IV (19:55)
[2022-12-16 20:58] LABS: ALB/GLOB Ratio 0.7 RATIO (0.9-2.4); AST(SGOT) 356 U/L (15-37); Alanine Aminotransfer ALT/SGPT 62 U/L (13-56); Albumin, Serum 2.6 g/dL (3.2-5.0); Alkaline Phosphatase 84 U/L (45-117); Anion Gap 9 (5-15); BUN 24 mg/dL (7-18); BUN/Creat Ratio 19.5 RATIO (10-20); Calcium,Total 11.8 mg/dL (8.5-10.1); Chloride 101 mmol/L (98-107); Creatinine, Serum 1.23 mg/dL (0.55-1.02); EST Glomerular Filtration Rate 46 mL/min (>60); Est Glom Filt Rate - Afr Amer 55 mL/min (>60); Globulin 3.9 g/dL (2.2-4.2); Glucose 125 mg/dL (74-106); Potassium 4.2 mmol/L (3.5-5.1); Protein, Total 6.5 g/dL (6.4-8.2); Sodium Level 136 mmol/L (136-145)
[2022-12-16 21:14] LABS: CPK Total, Creatine Kinase 266 U/L (26-192); Triglycerides 117 mg/dL
[2022-12-16 21:29] LABS: Reflex Lactate? Y
[2022-12-16] MEDS: hydrALAZINE 20 MG/ML Vial 10 MG IV (21:37)
[2022-12-16] MEDS: CHLORHEXIDINE GLUC 2% CLOTH 1 EACH TOWELETTE TOPICAL (21:39)
[2022-12-16] MEDS: LEVOTHYROXINE SODIUM 100 MCG VIAL 50 MCG IV (21:39)
[2022-12-16] MEDS: Acetaminophen 325 MG Tablet 650 MG PO (21:39)
[2022-12-16] MEDS: 0.9% Saline Lock 10 ML Syringe IV (21:42)
[2022-12-16] MEDS: Chlorhexidine 15 ML PO (21:53)
[2022-12-16 22:55] LABS: Allen Test Positive; Base Excess 0 mmol/L (-2 to +2); Bicarbonate 21.1 mmol/L (22-26); Blood Gas Specimen Type ART; FI02 30; Mode AC; O2 Delivery Device ET Tube; PEEP 5; PO2 91 mmHG (75-100); RR 14; SITE R Radial; SO2 99 % (95-99); Total Carbon Dioxide 22 mmol/L; Vt 450; pCO2 21.6 mmHg (35-45)
--- NOTE | 2022-12-16 23:12 | CPS ---
Critical ABG values, Dr. Pham notified
[2022-12-16 23:29] LABS: Lactic Acid 2.1 mmol/L (0.4-1.9)
[2022-12-17] VITALS (30 sets, daily range): BP systolic 103–146; BP diastolic 56–96; PULSE 97–145; RESP 12–20; TEMP 37.3–38.3; O2SAT 97–100; BMI 27.5
[2022-12-17] MEDS: 0.9% Normal Saline 1,000 ML 100 ML IV ×3 (00:20→20:52)
[2022-12-17 00:41] LABS: Bedside Glucose 93 mg/dL (74-106)
[2022-12-17] MEDS: 0.9% Saline Lock 10 ML Syringe IV (05:09)
[2022-12-17] MEDS: TITRATION PARAMETER CHANGE 1 EACH IV ×2 (05:27)
[2022-12-17 05:28] LABS: Absolute Lymphocyte Count 1.25 X10^3/uL (0.83-4.51); Basophil# 0.05 X10^3/uL; Basophil% 0.3 % (0-1); Eosinophil# 0.01 X10^3/uL; Eosinophils% 0.1 % (0-5); Hematocrit 44.3 % (37-47); Hemoglobin 14.8 g/dL (12.0-15.0); Lymphocyte # 1.25 X10^3/ul (0.83-4.51); Lymphocyte % 8.5 % (19-41); Mean Corp Hgb Conc 33.4 g/dL (32-36); Mean Corpuscular Hgb 32.7 pg (27.0-32.0); Mean Corpuscular Volume 97.8 fL (81-99); Monocyte# 1.39 X10^3/uL; Monocyte% 9.4 % (0-10); NRBC Flagged by Analyzer 0.1 % (0-5); Neutrophil # 11.95 X10^3/uL (2.7-7.7); Neutrophil % 81.3 % (47-70); POSITIVE COUNT YES; Platelet Count 13 K/mm3 (150-450); RBC Distribution Width CV 14.3 % (11.6-14.6); RBC Distribution Width SD 51.6 fl (35.1-43.9); Red Blood Count 4.53 M/mm3 (4.2-5.4); White Blood Count 14.7 K/mm3 (4.4-11.0)
[2022-12-17 05:33] LABS: Differential Indicated SCAN CRITERIA MET
[2022-12-17 05:41] LABS: Bedside Glucose 106 mg/dL (74-106)
[2022-12-17 06:02] LABS: Phosphorus 1.5 mg/dL (2.5-4.9)
[2022-12-17 06:43] LABS: ALB/GLOB Ratio 0.7 RATIO (0.9-2.4); AST(SGOT) 171 U/L (15-37); Alanine Aminotransfer ALT/SGPT 49 U/L (13-56); Albumin, Serum 2.3 g/dL (3.2-5.0); Alkaline Phosphatase 69 U/L (45-117); Anion Gap 10 (5-15); BUN 34 mg/dL (7-18); BUN/Creat Ratio 30.9 RATIO (10-20); Calcium,Total 11.2 mg/dL (8.5-10.1); Chloride 105 mmol/L (98-107); EST Glomerular Filtration Rate 52 mL/min (>60); Est Glom Filt Rate - Afr Amer 63 mL/min (>60); Globulin 3.2 g/dL (2.2-4.2); Glucose 98 mg/dL (74-106); Magnesium 0.6 mg/dL (1.6-2.6); Potassium 2.9 mmol/L (3.5-5.1); Protein, Total 5.5 g/dL (6.4-8.2); Sodium Level 141 mmol/L (136-145)
--- NOTE | 2022-12-17 06:48 | NURSING ---
talked to amarilys kearns about dosing meropenem
--- NOTE | 2022-12-17 06:50 | CON.PCM.CC_ITS ---
Assessment & Plan Assessment/Plan (1) Acute respiratory failure: (2) Acute alteration in mental status: PLAN: Plan RECOMMENDATIONS: 1. Continue assist-control mode of mechanical ventilation. Wean FiO2 and PEEP to maintain saturations at or above 90%. 2. Continue empiric antimicrobials, pending finalized culture results. 3. Continue seizure precautions, Keppra and as needed Ativan. 4. Complete EEG and obtain follow-up neurology consultation. 5. Check free T4 level. 6. Hold sedating medications for now. 7. Aggressive electrolyte repletion. 8. Continue thiamine and folate repletion. 9. Okay to initiate tube feeds. Monitor closely for refeeding syndrome. IMPRESSIONS: 1. Acute encephalopathy The patient developed new onset seizure activity, potentially related to alcohol withdrawal. The patient does have a longstanding alcohol abuse history but was negative for EtOH on presentation. She did require intubation to secure her airway. The patient was given Versed in route by EMS, which would account for her positive toxicology screen for benzodiazepines. Therefore, I do not see an indication for continuous Versed. At this time, with plan to hold all sedating medications. EEG is to be completed this morning. I would recommend that a follow-up neurology consultation be obtained. In the interim, we will continue seizure precautions along with Keppra and as needed Ativan. 2. Acute respiratory failure The patient was intubated in the emergency department over concerns for airway protection in the setting of #1. Chest x-ray demonstrated no acute cardiopulmonary process. Plan to continue invasive mechanical ventilatory support, with tentative plans to proceed with weaning, once the patient's mental status has improved. 3. Gram-negative cystitis Continue empiric antimicrobials, pending finalized culture results. 4. Alcoholic hepatitis and hyperbilirubinemia Likely secondary to longstanding alcohol dependency. Continue to monitor levels. Abdominal ultrasound is pending. 5. Thrombocytopenia Initially felt to be 2/2 longstanding alcohol dependency. However, her platelet count dropped rather suddenly following admission, raising the concern for an alternative etiology. I agree that ITP/TTP are considerations. This would require [id number] testing. Haptoglobin and reticulocyte count are pending. Hematology consultation is pending. No indication for transfusion of platelets at this time. We will recheck platelet count this afternoon. 6. Hypokalemia/hypophosphatemia/hypomagnesemia Aggressive electrolyte repletion as ordered. Electrolytes will need to be monitored closely over concerns for refeeding syndrome once tube feeds are initiated. 7. History of hypothyroidism/hyperlipidemia/anxiety/depression/chronic tobacco dependency Complicates care, management, recovery and prognosis. Continue supportive measures as noted above. Okay to initiate tube feeds today. TIME: 42 minutes of critical care time, independent of procedures, was spent addressing the patient's acute encephalopathy, new onset seizure activity, acute respiratory failure, gram-negative cystitis, alcoholic hepatitis, thrombocytopenia, significant electrolyte derangements, review of all data and collaboration with the care team. HPI Consult Data Date of Consult: 12/18/22 HPI Narrative Reason for Consultation: Acute respiratory failure HPI Narrative: The patient is a 72-year-old female, with a history as outlined below, who presented to the emergency department via EMS on December 16 with new onset seizure activity. The patient has a medical history that includes chronic alcohol dependency and prior subdural hematoma. History pertinent to the patient's hospitalization was obtained primarily via chart review, as the patient is currently intubated and there is no family available at the bedside. On presentation to the emergency department, the patient was documented to have a temperature of 97.6 ?F. She was notably tachycardic and tachypneic. Initial laboratory evaluation revealed a white blood cell count of 13,000. Platelet count was low at 31,000. Chemistry profile was notable for a chloride of 93, anion gap of 18, BUN of 22 and creatinine of 1.78. Lactate was elevated at 8.4. Total bili was increased at 3.2 with an AST of 427 and ALT of 71. TSH was elevated at 19.6. Urinalysis was positive for leukocyte Estrace and 4+ urine bacteria. Toxicology screen was positive for MDMA and benzodiazepines. CT head revealed chronic involutional changes. On presentation to the emergency depa rtment, the patient was documented to have a GCS of 3. She did have a witnessed tonic-clonic seizure around 1800 in the emergency department, which was medically managed with IV Ativan and Keppra. Given concerns for airway protection, the patient was intubated. The patient was subsequently placed on empiric antimicrobials and admitted to the medical intensive care unit. [facility] Medical History AA (alcohol abuse) Alcohol abuse Anxiety Depression History of GI bleed Hyperlipidemia Hypothyroidism Polysubstance abuse Tobacco dependence Tobacco use Allergy/AdvReac Type Severity Reaction Status Date / Time No Known Allergies Allergy Verified 12/16/22 15:53 Family History Mother Heart disease Hypertension Father Heart disease Hypertension Surgical History No history of previous surgery Social History household members: none Smoking Status: Current every day smoker tobacco type: cigarettes alcohol intake: current alcohol intake frequency: 3 or more drinks per day details: Unclear how much she has been drinking lately substance use type: does not use ROS Review of Systems ROS Unobtainable: due to endotracheal tube and due to mental status Physical Exam Const Constitutional Narrative: Intubated and mechanically ventilated. Sedation is currently on hold. The patient is not currently responsive to verbal or tactile stimulation. HEENT normocephalic and head/scalp atraumatic Mouth: endotracheal tube in place and OG tube in place Eyes PERRL and no scleral icterus Neck supple General: trachea midline Chest inspection of chest normal Resp Auscultation: diminished lung sounds; Negative for rales, rhonchi or wheezes Cardio S1 normal heart sound and S2 normal heart sound Rate: tachycardic GI normal to inspection, nondistended, normoactive bowel sounds Extremity no clubbing, cyanosis or edema Skin no rashes or lesions noted Neuro Neuro Narrative: Currently nonresponsive on the ventilator. Lab / Micro Data Result Diagrams: 12/18/22 03:40 12/18/22 03:40 Labs: Laboratory Results - last 24 hr 12/16/22 16:14: WBC 13.5 H, RBC 5.36, Hgb 17.8 H, Hct 54.1 H, MCV 100.9 H, MCH 33.2 H, MCHC 32.9, RDW Std Deviation 53.5 H, RDW Coeff of Melany 14.3, Plt Count 31 L*, MPV TNP, Immature Gran % (Auto) 0.700, Neut % (Auto) 71.7 H, Lymph % (Auto) 12.6 L, [place] % (Auto) 10.4 H, Eos % (Auto) 4.2, Baso % (Auto) 0.4, Absolute Neuts (auto) 9.7 H, Absolute Lymphs (auto) 1.71, Nucleated RBC % 0, Differential Comment SCANNED, Diff Path Review February12/16/22 16:14: Sodium 138, Potassium 3.7, Chloride 93 L, Carbon Dioxide 27.0, Anion Gap 18 H, BUN 22 H, Creatinine 1.78 H, Estim Creat Clear Calc 23.98, Est GFR (MDRD) Af Amer 36 L, Est GFR (MDRD) Non-Af 30 L, BUN/Creatinine Ratio 12.4, Glucose 154 H, Calcium 14.9 H*, Total Bilirubin 3.20 H, AST 427 H, ALT 71 H, Alkaline Phosphatase 106, Total Protein 7.3, Albumin 3.1 L, Globulin 4.2, Albumin/Globulin Ratio 0.7 L 12/16/22 16:14: Ethyl Alcohol < 3.0 12/16/22 16:15: POC Glucose 147 H 12/16/22 16:19: Lactic Acid 8.4 H* 12/16/22 16:19: TSH 19.60 H 12/16/22 16:19: PT 14.1, INR 1.1, APTT 23.5 L 12/16/22 16:19: Total Creatine Kinase 193 H 12/16/22 16:29: Urine Opiates Screen NEGATIVE, Urine Methadone Screen NEGATIVE, Ur Barbiturates Screen NEGATIVE, Ur Phencyclidine Scrn NEGATIVE, Ur Amphetamines Screen NEGATIVE, MDMA (Ecstasy) Screen POSITIVE H, U Benzodiazepines Scrn POSITIVE H, Urine Cocaine Screen NEGATIVE, U Cannabinoids Screen NEGATIVE, Ur Drug Screen Comment 12/16/22 16:29: Urine Color Lilly, Urine Clarity Cloudy, Urine pH 6.5, Ur Specific [place] 1.015, Urine Protein 100 H, Urine Glucose (UA) Normal, Urine Ketones 5 H, Urine Occult Blood 250 H, Urine Nitrite Negative, Urine Bilirubin Negative, Urine Urobilinogen 1 H, Ur Leukocyte Esterase 25 H, Urine RBC 0-5 SEEN, Urine WBC 10-25 SEEN, Ur Squamous Epith Cells 0-5 SEEN, Urine Bacteria 4+, Urine Mucus 0 SEEN 12/16/22 20:10: Sodium 136, Potassium 4.2, Chloride 101, Carbon Dioxide 26.0, Anion Gap 9, BUN 24 H, Creatinine 1.23 H, Estim Creat Clear Calc 34.70, Est GFR (MDRD) Af Amer 55 L, Est GFR (MDRD) Non-Af 46 L, BUN/Creatinine Ratio 19.5, Glucose 125 H, Calcium 11.8 H, Total Bilirubin 3.20 H, AST 356 H, ALT 62 H, Alkaline Phosphatase 84, Total Protein 6.5, Albumin 2.6 L, Globulin 3.9, Albumin/Globulin Ratio 0.7 L 12/16/22 20:10: Total Creatine Kinase 266 H, Triglycerides 117 12/16/22 20:10: Lactic Acid Cancelled 12/16/22 23:00: Lactic Acid 2.1 H* 12/17/22 00:17: POC Glucose 93 12/17/22 05:10: WBC 14.7 H, RBC 4.53, Hgb 14.8, Hct 44.3, MCV 97.8, MCH 32.7 H, MCHC 33.4, RDW Std Deviation 51.6 H, RDW Coeff of Melany 14.3, Plt Count 13 L*, Immature Gran % (Auto) 0.400, Neut % (Auto) 81.3 H, Lymph % (Auto) 8.5 L, [place] % (Auto) 9.4, Eos % (Auto) 0.1, Baso % (Auto) 0.3, Absolute Neuts (auto) 12.0 H, Absolute Lymphs (auto) 1.25, Nucleated RBC % 0.1 12/17/22 05:10: Sodium 141, Potassium 2.9 L, Chloride 105, Carbon Dioxide 26.0, Anion Gap 10, BUN 34 H, Creatinine 1.10 H, Estim Creat Clear Calc 38.80, Est GFR (MDRD) Af Amer 63, Est GFR (MDRD) Non-Af 52 L, BUN/Creatinine Ratio 30.9 H, Glucose 98, Calcium 11.2 H, Magnesium 0.6 L*, Total Bilirubin 2.60 H, AST 171 H, ALT 49, Alkaline Phosphatase 69, Total Protein 5.5 L, Albumin 2.3 L, Globulin 3.2, Albumin/Globulin Ratio 0.7 L 12/17/22 05:10: Phosphorus 1.5 L 12/17/22 05:18: POC Glucose 106 ABG Data ABG results: ABG 12/16/22 12/16/22 18:04 22:52 Specimen Type ART ART Sample Site R Radial R Radial pH 7.45 7.60 H* Bicarbonate Actual 26.4 H 21.1 L Total CO2 28 22 Base Excess 2 0 O2 Saturation 97 99 O2 % 30 ABG pCO2 38.2 21.6 L ABG pO2 90 91 Darrick Test Positive Respiration Rate 14 O2 Delivery Device ET Tube Liter Flow 2.0 Vent Mode AC Tidal Volume 450 POC PEEP 5 Crit Call To/Read Back Yes Radiology Impression Brain CT 12/16/22 16:05 IMPRESSION: There are no acute findings. Chronic involutional changes of the brain. Electronically Signed: James Wilkins MD at 16:41 EST , Chest X-Ray 12/16/22 16:32 IMPRESSION: There are no acute findings. Electronically Signed: James Wilkins MD at 16:43 EST , Chest X-Ray 12/16/22 18:30 IMPRESSION: There are no acute findings. There is a feeding tube/ nasogastric tube noted. The tip is not seen because it extends off the film. Electronically Signed: James Wilkins MD at 18:52 EST , KUB X-Ray 12/16/22 19:47 IMPRESSION: There is a feeding tube/ nasogastric tube noted. The tip is in the region of the stomach. Electronically Signed: James Wilkins MD at 20:25 EST , Charges/Coding Procedures Hospitalists Procedures: [id number] Critial Care 1st Hr
[2022-12-17 06:55] LABS: Platelet Estimate MKD DEC (ADEQ)
--- NOTE | 2022-12-17 07:00 | US_ITS ---
STUDY: ABDOMINAL ULTRASOUND REASON FOR EXAM: Female, 72 years old. Thrombocytopenia TECHNIQUE: Transabdominal ultrasound was performed with real-time and static meek scale imaging. TECHNICAL QUALITY: Adequate. COMPARISON: Comparison is made with prior study dated April 27, 2011. FINDINGS: Liver: The liver measures 15.8 cm. There is increased echogenicity consistent with fatty infiltration. The bile ducts are within normal limits. There is hepatic color flow. The direction of portal flow is hepatopetal. There is no demonstrated mass lesion. Portal vein measurement: Gallbladder: Normal distended gallbladder. The gallbladder wall measures 2.0 mm. There is a negative sonographic Maurice''s sign. There is no pericholecystic fluid. There are no gallstones. Common Bile Duct (C.B.D.): The common bile duct measures 6 mm. Pancreas: Normal size of the head, body and tail of the pancreas. There is normal echogenicity of the pancreas. There is no demonstrated pancreatic mass or cyst. Spleen: Normal size of the spleen. The spleen measures 7.9 cm x 3.1 cm x 2.9 cm. Right Kidney: Normal size of the right kidney. The right kidney measures 13.4 cm x 6.5 cm x 5.3 cm. Normal renal cortex. The right cortex measures 1.7 cm. There is no demonstrated renal mass or cyst. There is no right hydronephrosis. Left Kidney: Normal size of the left kidney. The left kidney measures 11.4 cm x 5.3 cm x 5.8 cm. Normal renal cortex. The left cortex measures 1.7 cm. There is no demonstrated renal mass or cyst. There is no left hydronephrosis. Aorta: Unremarkable I.V.C.: The IVC is patent. There is no ascites. US/Abdomen Complete IMPRESSION: Fatty infiltration of the liver. Electronically Signed: Raymundo Aldrich MD at 10:42 EST ,
--- NOTE | 2022-12-17 07:24 | TELEMED_ITS ---
[facility] Telemed has confirmed receipt of a request for visit. This document confirms receipt of the order initiating the consult. To find the results of the consultation, please view the patient's reports for the scanned Telemed Consult.
[2022-12-17] MEDS: Potassium Chloride 10mEq/100mL 10 MEQ/100 ML IV.SOLN. 100 MEQ IV BOLUS ×4 (07:46→11:23)
[2022-12-17] MEDS: Magnesium Sulfate 4gm/100mL 4 GM/100 ML IV.SOLN. IV (07:50)
[2022-12-17 08:03] LABS: T4 Free Direct 1.24 ng/dL (0.76-1.46)
[2022-12-17 08:30] LABS: PTHIN 15.4 pg/mL (18.4-80.1); Vitamin D,25 Hydroxy 32.7 ng/mL
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
[2022-12-17] MEDS: Chlorhexidine 15 ML PO ×2 (09:43→20:42)
--- NOTE | 2022-12-17 11:09 | PN_ITS ---
Subjective Subjective Patient seen and examined. She remains intubated. Her sedatives have been turned off this morning. She still remains minimally responsive, and only opens her eyes to voice call. Unable to do her review of systems. Her male friend who found her and called the EMS was by her bedside. HE said this has happened before but not to the point where she had to be intubated. She is a bit tachycardic this morning, but has otherwise remained hemodynamically stable. Objective Data Objective Data Vital Signs: Vital Signs Temp Pulse Resp BP Pulse Ox O2 Del Method O2 Flow Rate 100 F H 123 H 18 144/96 H 98 Mechanical Ventilator 30 12/17/22 10:00 12/17/22 10:33 12/17/22 10:33 12/17/22 10:00 12/17/22 10:33 12/17/22 10:00 12/17/22 07:00 FiO2 30 12/17/22 10:33 Oxygen Flow Rate (L/min) 30 Oxygen Delivery Method Mechanical Ventilator Weight: 155 lb 3.287 oz Body Mass Index (BMI) 27.5 Intake & Output: Intake and Output for Last 24 Hours 12/15/22 12/16/22 12/17/22 23:59 23:59 23:59 Intake Total 2503.08 / 2554.68 2002.44 / 2002.44 Output Total 350 / 350 260 / 260 Balance 2153.08 / 2204.68 1743.44 / 1743.44 Lab / Micro Data Result Diagrams: 12/17/22 05:10 12/17/22 05:10 Labs: Laboratory Results - last 24 hr 12/16/22 16:14: WBC 13.5 H, RBC 5.36, Hgb 17.8 H, Hct 54.1 H, MCV 100.9 H, MCH 33.2 H, MCHC 32.9, RDW Std Deviation 53.5 H, RDW Coeff of Melany 14.3, Plt Count 31 L*, MPV TNP, Immature Gran % (Auto) 0.700, Neut % (Auto) 71.7 H, Lymph % (Auto) 12.6 L, [place] % (Auto) 10.4 H, Eos % (Auto) 4.2, Baso % (Auto) 0.4, Absolute Neuts (auto) 9.7 H, Absolute Lymphs (auto) 1.71, Nucleated RBC % 0, Differential Comment SCANNED, Diff Path Review May foll 12/16/22 16:14: Sodium 138, Potassium 3.7, Chloride 93 L, Carbon Dioxide 27.0, Anion Gap 18 H, BUN 22 H, Creatinine 1.78 H, Estim Creat Clear Calc 23.98, Est GFR (MDRD) Af Amer 36 L, Est GFR (MDRD) Non-Af 30 L, BUN/Creatinine Ratio 12.4, Glucose 154 H, Calcium 14.9 H*, Total Bilirubin 3.20 H, AST 427 H, ALT 71 H, Alkaline Phosphatase 106, Total Protein 7.3, Albumin 3.1 L, Globulin 4.2, Albumin/Globulin Ratio 0.7 L 12/16/22 16:14: Ethyl Alcohol < 3.0 12/16/22 16:15: POC Glucose 147 H 12/16/22 16:19: Lactic Acid 8.4 H* 12/16/22 16:19: TSH 19.60 H 12/16/22 16:19: PT 14.1, INR 1.1, APTT 23.5 L 12/16/22 16:19: Total Creatine Kinase 193 H 12/16/22 16:29: Urine Opiates Screen NEGATIVE, Urine Methadone Screen NEGATIVE, Ur Barbiturates Screen NEGATIVE, Ur Phencyclidine Scrn NEGATIVE, Ur Amphetamines Screen NEGATIVE, MDMA (Ecstasy) Screen POSITIVE H, U Benzodiazepines Scrn POSITIVE H, Urine Cocaine Screen NEGATIVE, U Cannabinoids Screen NEGATIVE, Ur Drug Screen Comment 12/16/22 16:29: Urine Color Lilly, Urine Clarity Cloudy, Urine pH 6.5, Ur Specific [place] 1.015, Urine Protein 100 H, Urine Glucose (UA) Normal, Urine Ketones 5 H, Urine Occult Blood 250 H, Urine Nitrite Negative, Urine Bilirubin Negative, Urine Urobilinogen 1 H, Ur Leukocyte Esterase 25 H, Urine RBC 0-5 SEEN, Urine WBC 10-25 SEEN, Ur Squamous Epith Cells 0-5 SEEN, Urine Bacteria 4+, Urine Mucus 0 SEEN 12/16/22 20:10: Vitamin D 25-Hydroxy 32.7 12/16/22 20:10: PTH Intact 15.4 L 12/16/22 20:10: Sodium 136, Potassium 4.2, Chloride 101, Carbon Dioxide 26.0, Anion Gap 9, BUN 24 H, Creatinine 1.23 H, Estim Creat Clear Calc 34.70, Est GFR (MDRD) Af Amer 55 L, Est GFR (MDRD) Non-Af 46 L, BUN/Creatinine Ratio 19.5, Glucose 125 H, Calcium 11.8 H, Total Bilirubin 3.20 H, AST 356 H, ALT 62 H, Alkaline Phosphatase 84, Total Protein 6.5, Albumin 2.6 L, Globulin 3.9, Albumin/Globulin Ratio 0.7 L 12/16/22 20:10: Total Creatine Kinase 266 H, Triglycerides 117 12/16/22 20:10: Lactic Acid Cancelled 12/16/22 23:00: Lactic Acid 2.1 H* 12/17/22 00:17: POC Glucose 93 12/17/22 05:10: WBC 14.7 H, RBC 4.53, Hgb 14.8, Hct 44.3, MCV 97.8, MCH 32.7 H, MCHC 33.4, RDW Std Deviation 51.6 H, RDW Coeff of Melany 14.3, Plt Count 13 L*, Immature Gran % (Auto) 0.400, Neut % (Auto) 81.3 H, Lymph % (Auto) 8.5 L, [place] % (Auto) 9.4, Eos % (Auto) 0.1, Baso % (Auto) 0.3, Absolute Neuts (auto) 12.0 H, Absolute Lymphs (auto) 1.25, Nucleated RBC % 0.1, Diff Path Review February, Platelet Estimate MKD 12/17/22 05:10: Sodium 141, Potassium 2.9 L, Chloride 105, Carbon Dioxide 26.0, Anion Gap 10, BUN 34 H, Creatinine 1.10 H, Estim Creat Clear Calc 38.80, Est GFR (MDRD) Af Amer 63, Est GFR (MDRD) Non-Af 52 L, BUN/Creatinine Ratio 30.9 H, Glucose 98, Calcium 11.2 H, Magnesium 0.6 L*, Total Bilirubin 2.60 H, AST 171 H, ALT 49, Alkaline Phosphatase 69, Total Protein 5.5 L, Albumin 2.3 L, Globulin 3. 2, Albumin/Globulin Ratio 0.7 L 12/17/22 05:10: Phosphorus 1.5 L 12/17/22 05:10: Free T4 1.24 12/17/22 05:18: POC Glucose 106 Micro: Microbiology 12/16/22 19:05 Sputum, Induced/Lukens Respiratory Culture - Preliminary Appears to be normal respiratory jorge. Further studies to follow. 12/16/22 16:25 Urine Catheter - Catheter Urine Culture - Preliminary GNR lactose crew mess attendant ABG Data ABG results: ABG 12/16/22 12/16/22 18:04 22:52 Specimen Type ART ART Sample Site R Radial R Radial pH 7.45 7.60 H* Bicarbonate Actual 26.4 H 21.1 L Total CO2 28 22 Base Excess 2 0 O2 Saturation 97 99 O2 % 30 ABG pCO2 38.2 21.6 L ABG pO2 90 91 Darrick Test Positive Respiration Rate 14 O2 Delivery Device ET Tube Liter Flow 2.0 Vent Mode AC Tidal Volume 450 POC PEEP 5 Crit Call To/Read Back Yes Radiography Diagnostic Testing: Radiology Impression Brain CT 12/16/22 16:05 IMPRESSION: There are no acute findings. Chronic involutional changes of the brain. Electronically Signed: James Wilkins MD at 16:41 EST , Chest X-Ray 12/16/22 16:32 IMPRESSION: There are no acute findings. Electronically Signed: James Wilkins MD at 16:43 EST , Chest X-Ray 12/16/22 18:30 IMPRESSION: There are no acute findings. There is a feeding tube/ nasogastric tube noted. The tip is not seen because it extends off the film. Electronically Signed: James Wilkins MD at 18:52 EST , KUB X-Ray 12/16/22 19:47 IMPRESSION: There is a feeding tube/ nasogastric tube noted. The tip is in the region of the stomach. Electronically Signed: James Wilkins MD at 20:25 EST , Abdomen Ultrasound 12/17/22 07:00 IMPRESSION: Fatty infiltration of the liver. Electronically Signed: Raymundo Aldrich MD at 10:42 EST , Physical Exam Const Constitutional Narrative: intubated, off sedatives, RASS score is 0 HEENT normocephalic, head/scalp atraumatic and moist oral mucous membranes Eyes PERRL and EOMs intact bilaterally Neck no lymphadenopathy and supple Lymph Lymphatic: no lymphadenopathy noted Resp Resp Narrative: intubated, mildly diminished breath sounds bibasally, no wheezes or crackles. Cardio regular rhythm, S1 normal heart sound, S2 normal heart sound and no murmurs Cardio Narrative: tachypneic GI normal to inspection, nondistended, normoactive bowel sounds, soft to palpation, non-tender and non-distended Extremity normal capillary refill, no clubbing, cyanosis or edema and no calf tenderness Neuro Neuro Narrative: intubated, RASS score is 0. Sedatives turned off Assessment & Plan Assessment/Plan (1) Acute respiratory failure: (2) Acute alteration in mental status: (3) History of ETOH abuse: (4) Seizure: (5) Toxic metabolic encephalopathy: PLAN: Plan #Acute metabolic encephalopathy * thought to be due to seizures, as she was found to have generalised tonic clonic seizures, and had another seizure in the ED * loaded with Keppra, now on IV keppra * off sedatives; remains intubated. RASS score remains at 0. She opens her eyes in response to voice. * EEG done and report pending * MRI of brain pending * CT of the brain showed no acute intracranial pathology * Neurology to be consulted once EEG results * hold all sedatives for now * #Acute hypoxic respiratory failure * was intubated as she was having continuous seizures, and to protect her airway * on assist control mode of ventilation * titrate oxygen to maintain sats >90% * critical care on board * #Acute alcohol withdrawal * patient has a history of chronic alcohol abuse * seizures thought to be due to alcohol abuse * on IV thiamine high dose x 3 days. On folic acid and multivites * on Keppra for seizures. * monitor CIWA score * * #Hypokalemia, hypomagnesemia and hypophosphatemia * likely due to chronic alcohol abuse * will replace aggressively and trend * #Acute seizure: as above. on keppra now #UTI: urinalysis showed 3+ bacteria. On IV ceftriaxone. #Thrombocytopenia * platelets are 13 today. INR is normal * this may be due to chronic alcohol abuse and liver disease * however, I do think that it may be advisable to consult hematology * USG of liver and spleen ordered. * transfuse if platelets <10 * will check haptoglobin, LDH * Cr was elevated at 1.78, but now down to 1.1. Considering that patient had new onset thrombocytopenia, renal dysfunction and seizures and altered mental status, I do think it is prudent to get hematology review to make sure she doesnt have TTP. This can be explained by her alcoholism also, but out of an abundance of caution, will consult hematology. * Contact lab to ask for pathology review of peripheral smear to evaluate for schistocytes * #EEBR: being hydrated with IVF Cr trending downwards. #Hypercalcemia: * calcium was 14.9 on admission. * May have been due to dehydration. NOw trending downwards and is 11.2. Will continue hydration and trend. #History of hypothyroidism: on synthroid. TSH was elevated at 19.6. Her critical illness may also be playing a role. On IV synthroid. #History of GI bleed: on IV protonix #Hyperlipidemia: on statin Anxiety and depression: QTc prolonging meds held due to prolonged QTc. will monitor #Nutrition: started on tube feeds. DVT prophylaxis: SCDs Charges/Coding Visit Charges Inpatient E&M: 03139 [facility] L3
[2022-12-17] MEDS: Vital AF 1.2 Cal Liquid 1,000 ML 55 ML GT (11:22)
[2022-12-17 11:51] LABS: Bedside Glucose 75 mg/dL (74-106)
[2022-12-17 12:35] LABS: LDH 1113 U/L (84-246)
--- NOTE | 2022-12-17 13:00 | CT_ITS ---
STUDY: CT BRAIN WITHOUT CONTRAST REASON FOR EXAM: Female, 72 years old. r/o stroke RADIATION DOSAGE (If Supplied By Facility): CTDIvol = ( 47.006 ) mGy, DLP = ( 907.97 ) mGycm TECHNIQUE: Transaxial CT imaging of the brain was performed without administration of intravenous contrast material. Individualized dose optimization techniques were used for this CT. COMPARISON: Comparison is made with prior study dated December 16, 2022. FINDINGS: Normal soft tissue structures. Normal calvarium. There is moderate cerebral atrophy with widening of the extra-axial spaces and ventricular dilatation. There are areas of decreased attenuation within the white matter tracts of the supratentorial brain, consistent with microvascular disease changes. There are small punctate calcifications of the basal ganglia which are seen in the aging brain as a normal variant. Normal brainstem. Normal cerebellum. There is no intracranial hemorrhage. There are no findings of an acute ischemic infarction. Atherosclerotic plaque formation of the cavernous portions of the internal carotid arteries bilaterally. Normal visualized paranasal sinuses. CT/Brain/Head without Contrast IMPRESSION: Chronic involutional changes of the brain. Electronically Signed: Raymundo Aldrich MD at 14:09 EST ,
[2022-12-17 13:17] LABS: Pathologist Review Reviewed
[2022-12-17 13:20] LABS: Pathologist Review Reviewed
[2022-12-17 14:04] LABS: D-Dimer Quantitative (DVT/PE) 9.79 FEU/ug/m (0.27-0.49)
[2022-12-17 14:44] LABS: POSITIVE COUNT YES; Platelet Count 15 K/mm3 (150-450)
[2022-12-17 15:05] LABS: Fibrinogen 147 mg/dl (203-444)
[2022-12-17 15:17] LABS: Differential Indicated SCAN CRITERIA MET
[2022-12-17 15:39] LABS: Immature Platelet Fraction 27.4 % (1.0-7.9); RET-HE 36.5 pg (30-35); Reticulocyte Count 2.23 % (0.5-1.5)
[2022-12-17 16:02] LABS: Bilirubin, Direct 0.97 mg/dL (0.00-0.30)
--- NOTE | 2022-12-17 16:34 | CASEMGMT ---
ANGY JALLOH DC Planning Assessment: Pt intubated and not responsive to participate in assessment. Call placed to pt's next of kin/daughter . ANGY JALLOH introduced self and role at [facility]. Pt's daughter states she has contact with her mom via phone maybe once a month and is not clear of pt's address or baseline status. States pt has two other children (Michelle Brooks and Yung Moody) who have limited contact with pt and have not seen pt in over one year. states her aunts Nadia and Suni do have contact with pt several times a month. states from what she understands, the pt has been living independently and pt's S.O. stays with pt a few nights a week. Pt does not drive since having her license revoked for three DUIs. Guardianship had been recommended previously and had attempted to pursue guardianship but pt became more coherent and was able to secure an banking attorney and fight against the guardianship which was subsequently dropped. APS has been involved intermittently throughout past years. relayed understanding of recommendation to transfer pt to [facility] for continuous EEG monitoring and continued evaluation of abnormal blood work. to collaborate with her aunts on this decision. Discussion ceased to allow to contact her aunts. Will continue to monitor and assist with further needs as determined. Angy Beltran RN CM
[2022-12-17] MEDS: dexAMETHasone 20 MG/5 ML Vial 40 MG IV (16:46)
--- NOTE | 2022-12-17 17:02 | CON.PCM.ON_ITS ---
Assessment & Plan Assessment/Plan (1) Thrombocytopenia: Status: Acute Code(s): D69.6 - Thrombocytopenia, unspecified Plan: As evidenced by platelet count 15,000 today, 31,000 on presentation to the ED yesterday. Despite history of EtOH abuse, it appears her baseline is nearly normal (146,000 on September 14, 2022). Differentials include ITP versus TTP. PLASMIC score for estimating risk of severe [id number] deficiency is 5 indicating intermediate risk. Labs, specifically haptoglobin, retic, direct bilirubin and [id number], for conclusive diagnosis are pending. Advise transfer for plasma exchange when feasible. In the interim may consider Dex 40 mg IV daily x4 with GI prophylaxis. Case discussed with Dr. Garcia who was in agreement with aforementioned plan. [facility] will continue to follow. (2) History of ETOH abuse: Status: Acute Code(s): F10.11 - Alcohol abuse, in remission HPI Consult Data Date of Service:: 12/18/22 PCP / Referring Provider: Dr. Khai Palacios MD Attending: Dr. Concepcion Cardona MD Chief Complaint Chief Complaint: Thrombocytopenia History of Present Illness History of Present Illness: Ms. Janiya Moody is a 72 year old f with PMH significant for ETOH use, hypothyroidism, hyperlipidemia, subdural hematoma resulting from a fall, who reportedly presented by squad to [facility] ED on 12/16/22 after boyfriend witnessed what was described as a tonic clonic seizure. Found to be unresponsive to stimuli, tachycardic. Urine tox positive for benzodiazepines and MDMA. CT brain and CXR negative for acute findings. Had another seizure while in the ED thus intubated and subsequently admitted to ICU for management of acute metabolic encephalopathy and respiratory failure. Cultures pending. Liver ultrasound pending. Haptoglobin pending Advanced Directives Power of Transplant Case Manager: No Living Will: No [facility] Medical History AA (alcohol abuse) Alcohol abuse Anxiety Depression History of GI bleed Hyperlipidemia Hypothyroidism Polysubstance abuse Tobacco dependence Tobacco use Allergy/AdvReac Type Severity Reaction Status Date / Time No Known Allergies Allergy Verified 12/16/22 15:53 Family History Mother Heart disease Hypertension Father Heart disease Hypertension Surgical History No history of previous surgery Social History household members: none Smoking Status: Current every day smoker tobacco type: cigarettes alcohol intake: current alcohol intake frequency: 3 or more drinks per day details: Unclear how much she has been drinking lately substance use type: does not use ROS Review of Systems ROS Unobtainable: due to encephalopathy and due to endotracheal tube Physical Exam HEENT normocephalic, head/scalp atraumatic and moist oral mucous membranes Eyes conjunctivae normal and no scleral icterus Neck no lymphadenopathy and supple Lymph Lymphatic: no lymphadenopathy noted Resp Resp Narrative: intubated Auscultation: diminished lung sounds; Negative for wheezes Cardio regular rhythm, S1 normal heart sound and S2 normal heart sound Rate: tachycardic GI normal to inspection, nondistended, normoactive bowel sounds, soft to palpation, non-tender and non-distended Narrative: Payne catheter draining clear orange urine Extremity normal capillary refill, no clubbing, cyanosis or edema and no calf tenderness Skin Skin Narrative: Ecchymosis bilateral upper extremities Neuro Neuro Narrative: intubated Vital Signs Temperature 100.1 F H 12/17/22 16:00 Temperature Source Core 12/17/22 16:00 Pulse Rate 122 H 12/17/22 16:00 Pulse Strength Weak (1+) 12/17/22 10:00 Respiratory Rate 16 12/17/22 16:00 Respiratory Effort 12/17/22 11:44 Respiratory Depth Normal 12/17/22 11:44 Respiratory Pattern Normal 12/17/22 16:00 Blood Pressure 128/70 H 12/17/22 16:00 Blood Pressure Mean 89 12/17/22 16:00 Blood Pressure Source Monitor 12/17/22 16:00 Blood Pressure Position Semi-Fowlers 12/17/22 16:00 Blood Pressure Location Left Arm 12/17/22 16:00 Pulse Ox 98 12/17/22 16:00 Oxygen Delivery Method Mechanical Ventilator 12/17/22 16:00 Oxygen Flow Rate (L/min) 30 12/17/22 07:00 Fraction of Inspired Oxygen (FIO2) 30 12/17/22 16:00 Laboratory Results - last 24 hr 12/16/22 16:14: Diff Path Review Reviewed 12/16/22 16:19: Lactic Acid 8.4 H* 12/16/22 16:19: TSH 19.60 H 12/16/22 16:19: PT 14.1, INR 1.1, APTT 23.5 L 12/16/22 16:19: Total Creatine Kinase 193 H 12/16/22 20:10: Vitamin D 25-Hydroxy 32.7 12/16/22 20:10: PTH Intact 15.4 L 12/16/22 20:10: Sodium 136, Potassium 4.2, Chloride 101, Carbon Dioxide 26.0, Anion Gap 9, BUN 24 H, Creatinine 1.23 H, Estim Creat Clear Calc 34.70, Est GFR (MDRD) Af Amer 55 L, Est GFR (MDRD) Non-Af 46 L, BUN/Creatinine Ratio 19.5, Glucose 125 H, Calcium 11.8 H, Total Bilirubin 3.20 H, AST 356 H, ALT 62 H, Alkaline Phosphatase 84, Total Protein 6.5, Albumin 2.6 L, Globulin 3.9, Albumin/Globulin Ratio 0.7 L 12/16/22 20:10: Total Creatine Kinase 266 H, Triglycerides 117 12/16/22 20:10: Lactic Acid Cancelled 12/16/22 23:00: Lactic Acid 2.1 H* 12/17/22 00:17: POC Glucose 93 12/17/22 05:10: WBC 14.7 H, RBC 4.53, Hgb 14.8, Hct 44.3, MCV 97.8, MCH 32.7 H, MCHC 33.4, RDW Std Deviation 51.6 H, RDW Coeff of Melany 14.3, Plt Count 13 L*, Immature Gran % (Auto) 0.400, Neut % (Auto) 81.3 H, Lymph % (Auto) 8.5 L, [place] % (Auto) 9.4, Eos % (Auto) 0.1, Baso % (Auto) 0.3, Absolute Neuts (auto) 12.0 H, Absolute Lymphs (auto) 1.25, Nucleated RBC % 0.1, Diff Path Review Reviewed, Platelet Estimate MKD 12/17/22 05:10: Sodium 141, Potassium 2.9 L, Chloride 105, Carbon Dioxide 26.0, Anion Gap 10, BUN 34 H, Creatinine 1.10 H, Estim Creat Clear Calc 38.80, Est GFR (MDRD) Af Amer 63, Est GFR (MDRD) Non-Af 52 L, BUN/Creatinine Ratio 30.9 H, Glucose 98, Calcium 11.2 H, Magnesium 0.6 L*, Total Bilirubin 2.60 H, AST 171 H, ALT 49, Alkaline Phosphatase 69, Total Protein 5.5 L, Albumin 2.3 L, Globulin 3.2, Albumin/Globulin Ratio 0.7 L 12/17/22 05:10: Phosphorus 1.5 L 12/17/22 05:10: Free T4 1.24 12/17/22 05:10: Lactate Dehydrogenase 1113 H 12/17/22 05:10: Direct Bilirubin 0.97 H 12/17/22 05:18: POC Glucose 106 12/17/22 11:22: POC Glucose 75 12/17/22 13:25: Fibrinogen 147 L, D-Dimer Quant (PE/DVT) 9.79 H* 12/17/22 13:25: Plt Count Cancelled 12/17/22 14:15: Plt Count Cancelled, Diff Path Review Cancelled 12/17/22 14:36: Plt Count 15 L* 12/17/22 14:36: Immature Plt Fraction 27.4 H, Retic Count 2.23 H, Immature Retic Fraction 13.30, Retic Hgb Equivalent 36.5 H Microbiology 12/16/22 19:05 Sputum, Induced/Lukens Gram Stain - Final 12/16/22 19:05 Sputum, Induced/Lukens Respiratory Culture - Preliminary Appears to be normal respiratory jorge. Further studies to follow. 12/16/22 16:25 Urine Catheter - Catheter Urine Culture - Preliminary GNR lactose director college Diagnostic Data Chest X-Ray 12/16/22 18:30 IMPRESSION: There are no acute findings. There is a feeding tube/ nasogastric tube noted. The tip is not seen because it extends off the film. Electronically Signed: James Wilkins MD at 18:52 EST , KUB X-Ray 12/16/22 19:47 IMPRESSION: There is a feeding tube/ nasogastric tube noted. The tip is in the region of the stomach. Electronically Signed: James Wilkins MD at 20:25 EST , Abdomen Ultrasound 12/17/22 07:00 IMPRESSION: Fatty infiltration of the liver. Electronically Signed: Raymundo Aldrich MD at 10:42 EST , Brain CT 12/17/22 13:00 IMPRESSION: Chronic involutional changes of the brain. Electronically Signed: Raymundo Aldrich MD at 14:09 EST ,
[2022-12-17 17:45] LABS: Bedside Glucose 83 mg/dL (74-106)
[2022-12-17] MEDS: Lactulose 20 GM/30 ML PHA UDC NG (20:43)
[2022-12-17 23:16] LABS: Bedside Glucose 98 mg/dL (74-106)
[2022-12-18] VITALS (11 sets, daily range): BP systolic 127–145; BP diastolic 68–81; PULSE 97–109; RESP 14–23; TEMP 36.8–37.7; O2SAT 97–99; BMI 28.5
[2022-12-18 04:02] LABS: Absolute Lymphocyte Count 0.44 X10^3/uL (0.83-4.51); Absolute Neutrophil Count 10.6 X10^3/uL (2.0-7.7); Basophil# 0.02 X10^3/uL; Basophil% 0.2 % (0-1); Hematocrit 39.9 % (37-47); Hemoglobin 12.8 g/dL (12.0-15.0); Lymphocyte # 0.44 X10^3/ul (0.83-4.51); Lymphocyte % 3.8 % (19-41); Mean Corp Hgb Conc 32.1 g/dL (32-36); Mean Corpuscular Volume 102.8 fL (81-99); Monocyte% 2.6 % (0-10); NRBC Flagged by Analyzer 0 % (0-5); Neutrophil % 92.6 % (47-70); POSITIVE COUNT YES; POSITIVE DIFFERENTIAL YES; RBC Distribution Width CV 14.7 % (11.6-14.6); RBC Distribution Width SD 56.1 fl (35.1-43.9); Red Blood Count 3.88 M/mm3 (4.2-5.4); White Blood Count 11.5 K/mm3 (4.4-11.0)
[2022-12-18 04:03] LABS: Differential Indicated SCAN CRITERIA MET
[2022-12-18 04:04] LABS: Platelet Count 19 K/mm3 (150-450)
[2022-12-18 04:22] LABS: ALB/GLOB Ratio 0.6 RATIO (0.9-2.4); AST(SGOT) 78 U/L (15-37); Alanine Aminotransfer ALT/SGPT 37 U/L (13-56); Alkaline Phosphatase 70 U/L (45-117); Anion Gap 10 (5-15); Anisocytosis 1+; BUN 38 mg/dL (7-18); BUN/Creat Ratio 42.3 RATIO (10-20); Calcium,Total 9.8 mg/dL (8.5-10.1); Chloride 112 mmol/L (98-107); EST Glomerular Filtration Rate 66 mL/min (>60); Est Glom Filt Rate - Afr Amer 79 mL/min (>60); Estimated Creatinine Clearance 47.43 ml/min; Globulin 3.2 g/dL (2.2-4.2); Glucose 135 mg/dL (74-106); Macrocytosis 1+; Platelet Estimate MKD DEC (ADEQ); Potassium 3.4 mmol/L (3.5-5.1); Protein, Total 5.2 g/dL (6.4-8.2); Sodium Level 143 mmol/L (136-145)
[2022-12-18 04:37] LABS: Magnesium 1.6 mg/dL (1.6-2.6); Phosphorus 1.7 mg/dL (2.5-4.9)
[2022-12-18] MEDS: Lactulose 20 GM/30 ML PHA UDC NG (05:29)
[2022-12-18] MEDS: CHLORHEXIDINE GLUC 2% CLOTH 1 EACH TOWELETTE TOPICAL (05:30)
[2022-12-18 06:00] LABS: Bedside Glucose 130 mg/dL (74-106)
[2022-12-18] MEDS: 0.9% Normal Saline 1,000 ML 100 ML IV (06:37)
--- NOTE | 2022-12-18 08:30 | NURSING ---
[id number]
--- NOTE | 2022-12-18 08:52 | NURSING ---
daughter Jessica Moody oldest daughter [phone] informed of transfer & room [facility] [id number], she will inform family
[2022-12-18 13:31] LABS: Pathologist Review Reviewed
[2022-12-18 13:33] LABS: Pathologist Review Reviewed
[2022-12-18 15:26] LABS: Haptoglobin < 10 mg/dL (42-346)
--- NOTE | 2022-12-18 16:13 | DS.PCM_ITS ---
Providers Date of Admission: 12/16/22 Date of Discharge: 12/18/22 Primary Care Physician: Dr. Khai Palacios MD Consultations 12/16/22 19:25 Consult: Onc/Wound/commission clerk Routine Comment: 12/17/22 06:41 Consult: Pitch Filler / Pulmonary Medicine Routine Consulting Provider: [facility] Reason for Consult: intubated EMERGENT Consult: No Notified: Yes Date Notified: 12/17/22 Time Notified: 06:41 Method of Notification: Verbal 12/17/22 14:57 Consult: Oncology/Hematology Routine Consulting Provider: *[facility] Reason for Consult: severe thrombocytopenia EMERGENT Consult: No Notified: Yes Date Notified: 12/17/22 Time Notified: 14:58 Method of Notification: Verbal Reason For Visit: SEIZURES Diagnosis Discharge Diagnosis (1) Thrombocytopenia: Status: Acute Code(s): D69.6 - Thrombocytopenia, unspecified (2) History of ETOH abuse: Status: Acute Code(s): F10.11 - Alcohol abuse, in remission (3) Acute alteration in mental status: Status: Acute Code(s): R41.82 - Altered mental status, unspecified (4) Acute respiratory failure: Status: Acute Code(s): J96.00 - Acute respiratory failure, unspecified whether with hypoxia or hypercapnia Plan #Acute metabolic encephalopathy * thought to be due to seizures, as she was found to have generalised tonic clonic seizures, and had another seizure in the ED * loaded with Keppra, now on IV keppra * off sedatives; remains intubated. RASS score remains at 0. She opens her eyes in response to voice. * EEG done and report pending * MRI of brain pending * CT of the brain showed no acute intracranial pathology * Neurology to be consulted once EEG results * hold all sedatives for now * #Acute hypoxic respiratory failure * was intubated as she was having continuous seizures, and to protect her airway * on assist control mode of ventilation * titrate oxygen to maintain sats >90% * critical care on board * #Acute alcohol withdrawal * patient has a history of chronic alcohol abuse * seizures thought to be due to alcohol abuse * on IV thiamine high dose x 3 days. On folic acid and multivites * on Keppra for seizures. * monitor CIWA score * * #Hypokalemia, hypomagnesemia and hypophosphatemia * likely due to chronic alcohol abuse * will replace aggressively and trend * #Acute seizure: as above. on keppra now #UTI: urinalysis showed 3+ bacteria. On IV ceftriaxone. #Thrombocytopenia * platelets are 13 today. INR is normal * this may be due to chronic alcohol abuse and liver disease * however, I do think that it may be advisable to consult hematology * USG of liver and spleen ordered. * transfuse if platelets <10 * will check haptoglobin, LDH * Cr was elevated at 1.78, but now down to 1.1. Considering that patient had new onset thrombocytopenia, renal dysfunction and seizures and altered mental status, I do think it is prudent to get hematology review to make sure she doesnt have TTP. This can be explained by her alcoholism also, but out of an abundance of caution, will consult hematology. * Contact lab to ask for pathology review of peripheral smear to evaluate for schistocytes * #EBER: being hydrated with IVF Cr trending downwards. #Hypercalcemia: * calcium was 14.9 on admission. * May have been due to dehydration. NOw trending downwards and is 11.2. Will continue hydration and trend. #History of hypothyroidism: on synthroid. TSH was elevated at 19.6. Her critical illness may also be playing a role. On IV synthroid. #History of GI bleed: on IV protonix #Hyperlipidemia: on statin Anxiety and depression: QTc prolonging meds held due to prolonged QTc. will monitor #Nutrition: started on tube feeds. DVT prophylaxis: SCDs Hospital Course Operations None Procedures Electroencephalogram Summary of Care Provided Minutes Spent on Discharge: 45 Hospital Course: Patient is a 72-year-old female with a past medical history as outlined was admitted through the ED on 12/16/2022 with a complaint of seizure. Patient was obtunded when she came in and history was apparently obtained from his significant other. Boyfriend had gone to her house early in the afternoon of admission and patient seemed fine. He did find several empty bottles of liquor on the floor he reported that she usually drank daily. He went out to get some food and came back and patient was found to be having a tonic-clonic seizure. He called the EMS and when they arrived they gave patient Versed. Boyfriend stated that she had had a fall couple of months prior to this admission and had a traumatic subdural hematoma but was not sure whether she had had a seizure at that time. Patient did have a history of delirium tremens. On admission, platelets were low at 31,000 which was new. Chemistry showed elevated anion gap with creatinine of 1.78 which was elevated for her her calcium was also markedly elevated at 14.9 and AST was also elevated. ALT was also mildly elevated consistent with an alcoholic hepatitis. Bilirubin was elevated at 3.2. TSH was 19.6 urinalysis showed evidence of UTI. Urine tox was positive for ecstasy and benzodiazepines and serum alcohol level was less than 3. CT of the brain showed no acute intracranial pathology and chest x-ray showed no acute findings. EKG showed sinus tachycardia and prolonged QTc. She was admitted and managed for acute seizures which was thought to be due to alcohol withdrawal. She was intubated for airway protection and loaded with Keppra. She was also managed for acute hypoxic respiratory failure and with concerns for aspiration pneumonia and in light of UTI, she was started on IV Unasyn. She was also managed for acute alcohol withdrawal and alcoholic hepatitis and started on IV thiamine and also new onset thrombocytopenia which was thought to be related to her liver disease. Liver ultrasound showed fatty liver. Patient's platelets dropped precipitously to 13. In light of her new onset seizures as well as new onset thrombocytopenia and liver dysfunction, there was concern for possible TTP. Patient sedatives were turned off but she was still minimally responsive. An EEG was also obtained. Neurology consult was ordered. Patient however still remained very obtunded and lethargic and minimally responsive. In light of this there was also concern for nonconvulsive seizures. Hematology was consulted and thought her thrombocytopenia may be due to more to ITP but since TTP could not be ruled out, it was recommended that patient be referred to a tertiary facility where she could have continuous EEG as well as plasmapheresis if needed. Patient was accepted at [facility] and transferred on the morning of 12/18/2022. This hospitalist could not see and evaluate patient before she was transferred. Weight / BMI Weight Weight: 161 lb 6.054 oz Body Mass Index (BMI) 28.5 ABG / Lab / Microbiology Data Result Diagrams: 12/18/22 03:40 12/18/22 03:40 Laboratory: Laboratory Results - last 24 hr 12/17/22 12:15: Haptoglobin < 10 L 12/17/22 14:36: Diff Path Review Reviewed 12/17/22 16:35: Ammonia 41.0 H 12/17/22 17:26: POC Glucose 83 12/17/22 22:58: POC Glucose 98 12/18/22 03:40: WBC 11.5 H, RBC 3.88 L, Hgb 12.8, Hct 39.9, MCV 102.8 H D, MCH 33.0 H, MCHC 32.1, RDW Std Deviation 56.1 H, RDW Coeff of Melany 14.7 H, Plt Count 19 L*, MPV TNP, Immature Gran % (Auto) 0.800, Neut % (Auto) 92.6 H, Lymph % (Aut o) 3.8 L, [place] % (Auto) 2.6, Eos % (Auto) 0.0, Baso % (Auto) 0.2, Absolute Neuts (auto) 10.6 H, Absolute Lymphs (auto) 0.44 L, Nucleated RBC % 0, Diff Path Review Reviewed, Platelet Estimate MKD DEC, Anisocytosis 1+, Macrocytosis 1+ 12/18/22 03:40: Sodium 143, Potassium 3.4 L, Chloride 112 H, Carbon Dioxide 21.0, Anion Gap 10, BUN 38 H, Creatinine 0.90, Estim Creat Clear Calc 47.43, Est GFR (MDRD) Af Amer 79, Est GFR (MDRD) Non-Af 66, BUN/Creatinine Ratio 42.3 H, Glucose 135 H, Calcium 9.8, Total Bilirubin 1.20 H, AST 78 H, ALT 37, Alkaline Phosphatase 70, Total Protein 5.2 L, Albumin 2.0 L, Globulin 3.2, Albumin/Globulin Ratio 0.6 L 12/18/22 03:40: Phosphorus 1.7 L, Magnesium 1.6 12/18/22 05:28: POC Glucose 130 H Microbiology: Microbiology 12/16/22 19:05 Sputum, Induced/Lukens Gram Stain - Final 12/16/22 19:05 Sputum, Induced/Lukens Respiratory Culture - Preliminary 12/16/22 16:25 Urine Catheter - Catheter Urine Culture - Final Escherichia coli Meaningful Use Info Meaningful Use Diagnoses (Choose all that apply): None applicable Discharge Plan Admission Admit Date/Time: 12/16/22 18:23 Primary Reason for Your Visit: seizures Attending Provider: Concepcion Cardona Primary Care Provider: Khai Palacios Chi Consulting Providers: Paco Thompson ; Roberth Aldana ; Ankit Izquierdo ; Julian Martinez ; Evie Bazan [employer] SPECIALIST ; Nidia Pham ; Yoan Topete ; Rd Kincaid ; Jessica Garcia ; Rk Nelson ; Justino Kathleen ; Osvaldo Lee ; Bill Dubon ; Su Bautista [employer] SPECIALIST Discharge Orders/Prescriptions Referrals / Follow Up: Khai Palacios Chi, MD [Primary Care Provider] - Disposition Disposition (needs filled in before D/C Order can be placed): Acute Care Hospital Charges/Coding Visit Charges Inpatient E&M: 30847 Disch Hosp >30min
== END 2022-12-18 09:00 | disposition short-term general hospital (02) | DRG 100 ==
LOC: ED 17:18 → ICU 19:15
PROVIDERS: Family Medicine; Internal Medicine Critical Care Medicine; Physician Assistant; Admitting Provider Internal Medicine; Emergency Provider Emergency Medicine; PCP Family Medicine Geriatric Medicine; Visit Provider Student in an Organized Health Care Education/Training Program
DX: G40.509 Epileptic seizures related to external causes, not intractable, without status epilepticus (principal); J96.01 Acute respiratory failure with hypoxia; G93.41 Metabolic encephalopathy; F10.231 Alcohol dependence with withdrawal delirium; D69.3 Immune thrombocytopenic purpura; E87.20 Acidosis, unspecified; N17.9 Acute kidney failure, unspecified; N39.0 Urinary tract infection, site not specified; D69.6 Thrombocytopenia, unspecified; E83.39 Other disorders of phosphorus metabolism; E86.0 Dehydration; E83.52 Hypercalcemia; E78.5 Hyperlipidemia, unspecified; K70.10 Alcoholic hepatitis without ascites; E87.6 Hypokalemia; F41.9 Anxiety disorder, unspecified; E83.42 Hypomagnesemia; K76.0 Fatty (change of) liver, not elsewhere classified; K76.89 Other specified diseases of liver; D69.59 Other secondary thrombocytopenia; E03.9 Hypothyroidism, unspecified; R41.82 Altered mental status, unspecified; Z87.891 Personal history of nicotine dependence; F32.A Depression, unspecified; Y90.0 Blood alcohol level of less than 20 mg/100 ml
CPT/HCPCS: 31500; 31720; 36600; 51702; 70450; 71045; 74018; 76700; 80053; 80307; 81001; 82077; 82140; 82248; 82306; 82550; 82803; 82962; 83010; 83605; 83615; 83735; 83970; 84100; 84439; 84443; 84478; 85025; 85045; 85049; 85379; 85384; 85610; 85730; 87040; 87070; 87077; 87086; 87088; 87186; 87205; 90471; 93005; 94002; 94003; 95819; 97802; 99252; 99285; J7030; J7050; A4216; G0463; J0295; J3490

== ENCOUNTER → 2023-02-14 | Outpatient (REF) | payer MEDICARE, SELFPAY ==
[2023-02-14 08:06] LABS: Hematocrit 40.2 % (37-47); Hemoglobin 12.9 g/dL (12.0-15.0); Mean Corp Hgb Conc 32.1 g/dL (32-36); Mean Corpuscular Hgb 31.6 pg (27.0-32.0); Mean Corpuscular Volume 98.5 fL (81-99); Mean Platelet Vol. 11.9 fl (6.2-12.0); Platelet Count 199 K/mm3 (150-450); RBC Distribution Width CV 13.8 % (11.6-14.6); Red Blood Count 4.08 M/mm3 (4.2-5.4); White Blood Count 4.7 K/mm3 (4.4-11.0)
[2023-02-14 08:19] LABS: Anion Gap 8 (5-15); BUN 18 mg/dL (7-18); BUN/Creat Ratio 30.8 RATIO (10-20); Calcium,Total 9.5 mg/dL (8.5-10.1); Chloride 113 mmol/L (98-107); Creatinine, Serum 0.58 mg/dL (0.55-1.02); EST Glomerular Filtration Rate 108 mL/min (>60); Est Glom Filt Rate - Afr Amer 130 mL/min (>60); Glucose 80 mg/dL (74-106); Sodium Level 144 mmol/L (136-145)
== END ==
LOC: OLS.WCC 05:00
PROVIDERS: PCP Family Medicine Geriatric Medicine; Visit Provider Family Medicine
DX: E87.6 Hypokalemia (principal); E87.20 Acidosis, unspecified; E46 Unspecified protein-calorie malnutrition; R53.83 Other fatigue
CPT/HCPCS: 36415; 80048; 85027

== ENCOUNTER → 2023-02-25 | Outpatient (REF) | payer MEDICARE, SELFPAY ==
[2023-02-25 12:09] LABS: Color, Urine Yellow (Yellow); Glucose, Dipstick Normal (Normal); Ketone-Dipstick 5 mg/dl (Negative); Leukocyte Esterase-Dipstick 100 /ul (Negative); Nitrite-Dipstick Positive (Negative); Occult Blood-Urine 10 /ul (Negative); Protein-Dipstick 15 mg/dl (Negative); Specific Gravity, Urine 1.025 (1.002-1.030); Urine Bilirubin Dipstick Negative (Negative); Urine Clarity Sl. Cloudy (Clear); Urine Urobilinogen Normal (Normal)
== END ==
LOC: OLS.WCC 05:00
PROVIDERS: PCP Family Medicine Geriatric Medicine; Visit Provider Family Medicine
DX: N39.0 Urinary tract infection, site not specified (principal)
CPT/HCPCS: 81002; 87086; 87088; 87186

== ENCOUNTER → 2023-03-18 | Outpatient (REF) | payer MEDICARE, SELFPAY ==
[2023-03-18 08:47] LABS: Absolute Lymphocyte Count 2.26 X10^3/uL (0.83-4.51); Absolute Neutrophil Count 4.8 X10^3/uL (2.0-7.7); Basophil# 0.08 X10^3/uL; Eosinophil# 0.15 X10^3/uL; Eosinophils% 1.8 % (0-5); Hematocrit 41.1 % (37-47); Hemoglobin 13.3 g/dL (12.0-15.0); Lymphocyte # 2.26 X10^3/ul (0.83-4.51); Lymphocyte % 27.7 % (19-41); Mean Corp Hgb Conc 32.4 g/dL (32-36); Mean Corpuscular Volume 95.8 fL (81-99); Mean Platelet Vol. 11.2 fl (6.2-12.0); Monocyte# 0.84 X10^3/uL; Monocyte% 10.3 % (0-10); NRBC Flagged by Analyzer 0 % (0-5); Platelet Count 248 K/mm3 (150-450); RBC Distribution Width CV 13.3 % (11.6-14.6); RBC Distribution Width SD 47.1 fl (35.1-43.9); Red Blood Count 4.29 M/mm3 (4.2-5.4); White Blood Count 8.2 K/mm3 (4.4-11.0)
[2023-03-18 09:02] LABS: Anion Gap 6 (5-15); BUN 18 mg/dL (7-18); BUN/Creat Ratio 27.5 RATIO (10-20); Calcium,Total 9.1 mg/dL (8.5-10.1); Chloride 112 mmol/L (98-107); Creatinine, Serum 0.66 mg/dL (0.55-1.02); EST Glomerular Filtration Rate 94 mL/min (>60); Est Glom Filt Rate - Afr Amer 114 mL/min (>60); Glucose 83 mg/dL (74-106); Potassium 4.2 mmol/L (3.5-5.1); Sodium Level 141 mmol/L (136-145)
== END ==
LOC: OLS.WCC 05:00
PROVIDERS: PCP Family Medicine Geriatric Medicine; Visit Provider Family Medicine
DX: E87.20 Acidosis, unspecified (principal); E46 Unspecified protein-calorie malnutrition; E87.6 Hypokalemia; R53.83 Other fatigue
CPT/HCPCS: 36415; 80048; 85025

== ENCOUNTER → 2023-05-03 | Outpatient (REF) | payer MEDICARE, SELFPAY ==
[2023-05-03 12:49] LABS: Absolute Lymphocyte Count 1.71 X10^3/uL (0.83-4.51); Basophil# 0.07 X10^3/uL; Eosinophil# 0.09 X10^3/uL; Eosinophils% 1.3 % (0-5); Hematocrit 41.4 % (37-47); Hemoglobin 12.8 g/dL (12.0-15.0); Lymphocyte # 1.71 X10^3/ul (0.83-4.51); Mean Corp Hgb Conc 30.9 g/dL (32-36); Mean Corpuscular Hgb 29.6 pg (27.0-32.0); Mean Corpuscular Volume 95.8 fL (81-99); Mean Platelet Vol. 11.3 fl (6.2-12.0); Monocyte# 0.91 X10^3/uL; Monocyte% 13.3 % (0-10); NRBC Flagged by Analyzer 0 % (0-5); Neutrophil # 4.04 X10^3/uL (2.7-7.7); Neutrophil % 59.3 % (47-70); Platelet Count 232 K/mm3 (150-450); RBC Distribution Width CV 13.9 % (11.6-14.6); RBC Distribution Width SD 49.3 fl (35.1-43.9); Red Blood Count 4.32 M/mm3 (4.2-5.4); White Blood Count 6.8 K/mm3 (4.4-11.0)
[2023-05-03 13:02] LABS: ALB/GLOB Ratio 0.8 RATIO (0.9-2.4); AST(SGOT) 18 U/L (15-37); Alanine Aminotransfer ALT/SGPT 18 U/L (13-56); Albumin, Serum 3.1 g/dL (3.2-5.0); Alkaline Phosphatase 99 U/L (45-117); Anion Gap 6 (5-15); BNP,B-Type NATRIURETIC PEPTIDE 4.3 pg/mL (0-100); BUN 25 mg/dL (7-18); BUN/Creat Ratio 39.1 RATIO (10-20); Calcium,Total 9.6 mg/dL (8.5-10.1); Chloride 112 mmol/L (98-107); Creatinine, Serum 0.64 mg/dL (0.55-1.02); EST Glomerular Filtration Rate 97 mL/min (>60); Est Glom Filt Rate - Afr Amer 117 mL/min (>60); Globulin 4.1 g/dL (2.2-4.2); Glucose 96 mg/dL (74-106); Potassium 4.3 mmol/L (3.5-5.1); Protein, Total 7.2 g/dL (6.4-8.2); Sodium Level 143 mmol/L (136-145)
== END ==
LOC: OLS.WCC 12:25
PROVIDERS: PCP Family Medicine Geriatric Medicine; Visit Provider Family Medicine
DX: F03.90 Unspecified dementia, unspecified severity, without behavioral disturbance, psychotic disturbance, mood disturbance, and anxiety (principal); R53.83 Other fatigue; E78.5 Hyperlipidemia, unspecified; E03.9 Hypothyroidism, unspecified
CPT/HCPCS: 36415; 80053; 83880; 85025

== ENCOUNTER → 2024-12-01 05:00 | Outpatient (REF) | payer SELFPAY ==
[2024-12-01 10:08] LABS: Mucous, Urine 0 SEEN /hpf (<or=2+)
[2024-12-01 10:26] LABS: Color, Urine Yellow (Yellow); Glucose, Dipstick Normal (Normal); Ketone-Dipstick Negative (Negative); Leukocyte Esterase-Dipstick Negative /ul (Negative); Nitrite-Dipstick Positive (Negative); Occult Blood-Urine 25 /ul (Negative); Protein-Dipstick 15 mg/dl (Negative); Specific Gravity, Urine 1.015 (1.002-1.030); Urine Bilirubin Dipstick Negative (Negative); Urine Clarity Sl. Cloudy (Clear); Urine Urobilinogen Normal (Normal)
[2024-12-01 10:31] LABS: Bacteria 4+ /hpf (None Seen); Red Blood Cells-Urine 0 SEEN /hpf (0-5); Squamous Epithelial Cells - UA 0-5 SEEN /hpf (5-10); White Blood Cells 0-5 SEEN /hpf (0-5)
== END ==
LOC: OLS.BROOKB 05:00
PROVIDERS: PCP Family Medicine Geriatric Medicine; Visit Provider Family Medicine
DX: N39.0 Urinary tract infection, site not specified (principal)
CPT/HCPCS: 81001; 87077; 87086; 87088; 87186

== ENCOUNTER → 2025-03-22 04:00 | Outpatient (REF) | payer MEDICARE, SELFPAY ==
--- OUTSIDE RECORDS SUMMARY | 2025-03-22 03:45 | XMS RPT_ITS | CCD ---
Author Organization [facility] Care Team Providers Care Ldr Rn Name Role Phone JACK NATHAN Unavailable Unavailable IMCA Unavailable Unavailable KONG PATEL Unavailable Unavailable IMCA Unavailable Unavailable IMCA Unavailable Unavailable Joe Song PA-C Unavailable Khai Palacios Chi Primary Care Provider [phone] Unavailable Primary Care Provider UnavailFrank Mir Primary Care Provider Frank Palacios Primary Care Provider FRANK PALACIOS Primary Care Unavailable SHANDRA COLE Admitting Unavail able FITZ BYRNES Consulting Unavailable SHANDRA COLE Attending Unavail able Khai Palacios MDLandry Primary Care Provider No, Physician Primary Care Provider Unavailabl e SERVICE, MEDONE TEACHING Consulting Unavail able ARIES LANDON Attending Unavailable GANESH LUNA Admitting Unavail able SYSTEM, PROVIDER NOT IN Referring Unavaila ble CAROL HONG Consulting Unavailabl e MURIEL GOODRICH Consulting VON Fay Admitting Unavailable TIGRE MARLEY Referring Unavailable CONSULT, IP BURN Consulting Unavailable JOE VILLAREAL Attending Unavailable REQUEST, IP MANAGER CONVENTION SERVICE Consul ting Unavailable CONSULT, IP DERMATOLOGY Consulting Unavaila ble CONSULT, IP INFECTIOUS DISEASE Consulting U navailable REQUEST, IP ACTIVITY THERAPY SERVICE Consulting Unavailable CONSULT, IP NEUROLOGY Consulting Unavailabl e REQUEST, IP PHYSICAL THERAPY SERVICE Consulting Unavailable REQUEST, IP OCCUPATIONAL THERAPY SERVICE Consult ing Unavailable PROVIDER, UNKNOWN Attending Unavailable PROVIDER, UNKNOWN Admitting Unavailable Unavailable Primary Care Provider Unavailabl e Dr. Khai Palacios Chi Primary Care Provider [phone] Khanh Arias Emergency Provider [phone] Nichelle Robert Admit Provider Dr. Bud Jackson Attending Provider Dr. Bud Jackson Other Provider Khai Palacios Chi Primary Care Provider Kong Giordano MD Unavailable Yonis LUCIANO, Silvana King Unavailable Dr. Khai Palacios Chi Primary Care Provider Dr. George Han Emergency Provider Dr. Nidia Pham Admit Provider Dr. Nidia Pham Attending Provider Dr. Nidia Pham Other Provider Dr. Paco Thompson Other Provider Dr. Roberth Aldana Attending Provider Dr. Roberth Aldana Other Provider Dr. Ankit Izquierdo Other Provider Dr. Julian Martinez Other Provider Unavailab landon Bazan [employer] DANCER, COMPANY DANCER-C Evie Other Provider Dr. Danya Alonzo Other Provider Dr. Oscar Topete Other Provider Dr. Rd Kincaid Other Provider Dr. Jessica Garcia Other Provider Dr. Rk Nelson Other Provider Dr. Justino Kathleen Other Provider Unavailable Dr. Osvaldo Lee Other Provider Dr. Bill Dubon Other Provider Michele COMPANY DANCER, COMPANY DANCER-C Su Other Provider Michele COMPANY DANCER, COMPANY DANCER-C Su Attending Provider Dr. Danya Alonzo Attending Provider JENNYFER MERCADO Admitting Unavailable MAHAJANAP WHEELER-KIT Consulting Unavaila OSCAR Ruelas Attending Unavail able DANYA ALONZO Referring Unavailable CHITO, KHAI CHI Primary Care Unavailable MALLAT, ALI Admitting Unavailable AL-ALI, FIRAS Consulting Unavailable MUJOSEFINA MAGANAID BRANDY Attending Unavailabl e CHITO, KHAI CHI Primary Care Unavailable Dr. Khai Palacios Chi Primary Care Provider 1([facility])[phone] Dr. George Han Emergency Provider Dr. Nidia Pham Admit Provider Dr. Nidia Pham Attending Provider 1([facility])[phone] Nidia Pham Other Provider Dr. Bj Newman Attending Provider 1([facility])[phone] Nidia Pham Referring Provider 1([facility])[phone] Thompson Other Provider Dr. Roberth Aladna Attending Provider 1([facility])[phone] Roberth Aldana Other Provider Dr. Ankit Izquierdo Other Provider 1([facility])[phone] Julian Martinez Other Provider Unavailab landon [employer] D[employer], [employer] D[employer]ER-C Evie Other Provider Dr. Danya Alonzo Referring Provider 1([facility])[phone] Dr. Danya Alonzo Other Provider 1([facility])[phone] Oscar Topete Other Provider Dr. Rd Kincaid Other Provider Dr. Jessica Garcia Other Provider Dr. Rk Nelson Other Provider Dr. Justino Kathleen Other Provider Unavailable Dr. Osvaldo Lee Other Provider 1([facility])[phone] Bill Dubon Other Provider 1([facility])[phone] Michele COMPANY DANCER, COMPANY DANCER-C Su Other Provider 1([facility])[phone] Dr. Danya Alonzo Attending Provider 1([facility])[phone] Dr. Khai Palacios Chi Referring Provider Michele MCCALLUM, STEPHENC Su Attending Provider NABIL LUCIANO, KENZIE Fuentes Primary Care Physician [phone] Khai Palacios Chi Primary Care Unavailable Faina Berman Attending Unavailable Medications Current Medications Medication Drug Class(es) Dates Sig (Normalized) Sig (Original) acamprosate calcium 333 mg delayed release oral tablet (2 sources) Start: 02-22-2021 End: 03-16-2021 take 2 tablets by mouth three times daily acamprosate (CAMPRAL) 333 mg tablet Take 2 (two) tablets (666 mg total) by mouth 3 (three) times a day . 180 tablet 2 03/16/2021 Active ascorbic acid 60 mg / beta carotene 5000 unt / copper sulfate 40 mg / dl-alpha tocopheryl acetate 30 unt / sodium selenite 0.04 mg / zinc oxide 40 mg oral tablet (4 sources) Vitamin C Start: 12-13-2020 take 1 tablet by mouth once daily 1 tablet, Oral, DAILY, First dose on Sat12/13/20 at 1145 Aspirin (10 sources) Platelet Aggregation Inhibitor, Nonsteroidal Anti-inflammatory Drug Start: 02-15-2021 aspirin EC tablet 81 mg Start: 04-18-2015 End: 04-19-2015 take 81 mg by mouth once daily Aspirin Discontinued 81 MG PO DAILY@0800 April 18, 2015 12:00am April 19, 2015 2:39pm End: 10-23-2020 take 1 tablet by mouth once daily aspirin 81 MG EC tablet Take 81 mg by mouth daily 0 10/23/2020 Discontinued (Stop Taking at Discharge) atorvastatin 40 mg oral tablet (7 sources) HMG-CoA Reductase Inhibitor Start: 02-15-2021 take 80 mg by mouth once daily 80 mg, Oral, NIGHTLY, First dose on Sat02/15/21 at 2100 Start: 12-02-2020 End: 03-16-2021 take 1 tablet by mouth once daily atorvastatin (LIPITOR) 40 MG tablet Take 1 (one) tablet (40 mg total) by mouth nightly . 30 tablet 2 03/16/2021 Active Start: 05-14-2019 ATORVASTATIN C ALCIUM 40 MG TABS take one tablet once daily ATORVASTATIN CALCIUM [id number] Joe Song PA-C Comment on above: atorvastatin 80 mg t ablet bacitracin zinc 0.5 unt/mg topical ointment (3 sources) Start: 10-23-2020 End: 11-03-2020 bacitracin 500 UNIT/GM ointment Apply topically 2 times daily to abrasion below the clavicle area. 1 Tube 0 10/24/2020 11/03/2020 Active Start: 10-19-2020 apply 1 dose topical ly three times daily Topical, 3 TIMES DAILY, First dose on 10/19/20 at 2215 Apply to abrasions. To be used for areas below the clavicle region. bifidobacterium infantis 4 mg oral capsule (1 source) Start: 12-13-2020 take 1 capsule by mouth once daily 1 capsule, Oral, DAILY, First dose on Sat12/13/20 at 1145 cholecalciferol 2000 unt oral capsule (1 source) Vitamin D Cholecalciferol (VITAMIN D3) 50 MCG (2000 UT) CAPS Take by mouth daily 0 Active diazePAM 5 mg oral tablet (2 sources) Benzodiazepine Start: 01-14-2021 diazePAM (VALIUM) tablet 5 mg Start: 01-14-2021 End: 01-14-2021 diazePAM (VALIUM) tablet 2 m g docusate sodium 100 mg oral capsule (9 sources) Start: 02-15-2021 take 100 mg by mouth twice daily 100 mg, Oral, 2 TIMES DAILY, First dose on Sat02/15/21 at 2100 Start: 01-14-2021 take 100 mg by mouth once angel y 100 mg, Oral, DAILY, First dose on Sat01/14/21 at 0900 Do not crush or break. Start: 10-22-2020 End: 10-24-2020 take 1 capsule by mouth twice daily docusate (COLACE, DULCOLAX) 100 MG CAPS Take 100 mg by mouth 2 times daily 60 capsule 0 10/24/2020 Active ergocalciferol 1.25 mg oral capsule (5 sources) Provitamin D2 Compound Start: 02-20-2021 take 1 capsule by mouth every week Vitamin D2 1,250 mcg (50,000 unit) capsule Take 1 capsule by mouth once a week . 0 02/20/2021 Active Start: 11-21-2020 take 1 capsule by mo uth every week vitamin D (ERGOCALCIFEROL) 1.25 MG (96455 UT) CAPS capsule Take 1 capsule by mouth once a week 5 capsule 0 11/21/2020 Active Hyaluronic Acid-Vitamin C (HYALURONIC ACID PO) (4 sources) take 100 mg by mouth once daily Hyaluronic Acid-Vitamin C (HYALURONIC ACID PO) Take 100 mg by mouth daily 0 Active hydrOXYzine hydrochloride 25 mg oral tablet (5 sources) Antihistamine Start: 03-16-2021 take 0.5 tablet by mouth every six hours as needed hydrOXYzine (ATARAX) 25 MG tablet Take 0.5 (one-half) tablet (12.5 mg total) by mouth every 6 (six) hours as needed . 30 tablet 3 03/16/2021 Active Start: 03-12-2021 End: 03-17-2021 take 1 tablet by mouth every six hours as needed for anxiety hydrOXYzine (ATARAX) tablet 50 mg Start: 03-11-2021 End: 03-12-2021 take 1 tablet by mouth every six hours as needed for anxiety 25 mg, Oral, Every 6 hours PRN, anxiety, Starting on 03/11/21 at 1321 Start: 01-30-2021 End: 04-30-2021 hydrOXYzine (ATARAX) 25 MG t ablet Take 12.5 mg by mouth every 6 (six) hours as needed . 0 01/30/2021 03/16/2021 Discontinued (Reorder) labetalol hydrochloride 5 mg/ml injectable solution (1 source) beta-Adrenergic Alvaro Start: 02-15-2021 labetalol (NORMODYNE;TRANDATE) injection 10 mg Lactobacillus (4 sources) Lactobacillus (ACIDOPHILUS PO) Take by mouth daily 0 Active meclizine hydrochloride 25 mg oral tablet (3 sources) Antiemetic Start: 01-12-2021 End: 03-16-2021 take 1 tablet by mouth three times daily as needed meclizine (ANTIVERT) 25 mg tablet Take 1 (one) tablet (25 mg total) by mouth 3 (three) times a day as needed . 30 tablet 2 03/16/2021 Active melatonin 3 mg oral tablet (8 sources) Start: 11-16-2020 End: 03-16-2021 take 1 tablet by mouth once daily melatonin 3 mg Tab Take 1 (one) tablet (3 mg total) by mouth nightly . 30 tablet 2 03/16/2021 Active Multiple Vitamins-Minerals (THERAPEUTIC MULTIVITAMIN-SCRUBBER MACHINE TENDER ALS) tablet (1 source) take 1 tablet by mouth once daily Multiple Vitamins-Minerals (THERAPEUTIC MULTIVITAMIN-MINERALS) tablet Take 1 tablet by mouth daily 0 Active Multivitamin preparation (2 sources) Start: 02-06-2022 take 1 tablet by mouth once daily Multivitamin Active 1 TABLET PO DAILY February 06, 2022 3:54pm Start: 02-06-2022 take 1 tablet by chetna th once daily Multivitamin Active 1 TABLET PO DAILY February 06, 2022 12:00am naltrexone hydrochloride 50 mg oral tablet (2 sources) Opioid Antagonist Start: 02-22-2021 End: 03-16-2021 take 1 tablet by mouth once daily naltrexone (DEPADE, REVIA) 50 mg tablet Take 1 (one) tablet (50 mg total) by mouth daily . 30 tablet 2 03/16/2021 Active 2 ml ondansetron 2 mg/ml injection (2 sources) Serotonin-3 Receptor Antagonist Start: 01-14-2021 4 mg, Intravenous, EVERY 6 HOURS PRN, Nausea, Vomiting, Starting 01/14/21 at 0037 Start: 10-19-2020 4 mg, Intraven ous, EVERY 6 HOURS PRN, Nausea, Vomiting, Starting 10/19/20 at 2140 pantoprazole 40 mg delayed release oral tablet (1 source) Proton Pump Inhibitor Start: 12-14-2020 pantoprazole (PROTON IX) tablet 40 mg PHENobarbital 32 mg oral tablet (6 sources) Start: 02-17-2021 PHENobarbital (LUMINAL) tablet 32.4 mg Start: 02-15-2021 End: 02-17-2021 PHENobarbital (LUMINAL) tabl et 64.8 mg Start: 10-21-2020 End: 10-22-2020 PHENobarbital (LUMINAL) tabl et 32.4 mg Start: 10-19-2020 End: 10-20-2020 PHENobarbital (LUMINAL) inje ction 30 mg polyethylene glycol [id number] [id number] mg powder for oral solution (4 sources) Osmotic Laxative Start: 02-15-2021 17 g, Oral, D AILY PRN, Constipation, Starting 02/15/21 at 2006 First line therapy for constipation Start: 01-14-2021 17 g, Oral, DA DIAN PRN, Constipation, Starting 01/14/21 at 0037 First line therapy for constipation Start: 12-12-2020 polyethylene g lycol (GLYCOLAX) packet 17 g Start: 10-20-2020 polyethylene g lycol (GLYCOLAX) packet 17 g potassium bicarbonate 20 meq effervescent oral tablet (1 source) Start: 01-14-2021 potassium bicarb-citric acid (EFFER-K) effervescent tablet 20 mEq pravastatin sodium 40 mg oral tablet (3 sources) HMG-CoA Reductase Inhibitor Start: 10-20-2020 End: 12-27-2020 take 40 mg by mouth once daily 40 mg, Oral, NIGHTLY, First dose on Rocio 10/20/20 at 2100 Probiotic Complex, with FOS, 10 billion cell-100 mg cap (1 source) Start: 01-12-2021 take 1 capsule by mouth once daily Probiotic Complex, with FOS, 10 billion cell-100 mg cap Take 1 capsule by mouth daily . 0 01/12/2021 Active Promethazine (2 sources) Phenothiazine Start: 02-15-2021 promethazine (PHENERGAN) tablet 12.5 mg Start: 12-12-2020 promethazine ( PHENERGAN) tablet 12.5 mg propranolol hydrochloride 10 mg oral tablet (1 source) beta-Adrenergic Alvaro Start: 01-14-2021 propranolol (INDERAL) tablet 30 mg QUEtiapine 100 mg oral tablet (10 sources) Atypical Antipsychotic Start: 02-20-2021 End: 03-16-2021 take 1 tablet by mouth once daily QUEtiapine (SEROQUEL) 100 MG tablet Take 1 (one) tablet (100 mg total) by mouth nightly . 30 tablet 2 03/16/2021 Active Start: 01-14-2021 take 50 mg by mouth once daily 50 mg, Oral, NIGHTLY, First dose on 01/14/21 at 0100 Start: 12-27-2020 take 50 mg by mouth once daily 50 mg, Oral, NIGHTLY, First dose on 02/15/21 at 2100 Start: 12-15-2020 QUEtiapine (SE ROQUEL) tablet 50 mg Start: 11-16-2020 End: 12-27-2020 take 100 mg by mouth once daily 100 mg, Oral, NIGHTLY, First dose on e 12/13/20 at 2100 sennosides, jail 8.6 mg oral tablet (1 source) Start: 10-20-2020 senna (SENOKOT ) tablet 8.6 mg sodium chloride flush 0.9 % injection 3 mL (3 sources) Start: 12-12-2020 sodium chlorid e flush 0.9 % injection 3 mL Start: 10-19-2020 sodium chlorid e flush 0.9 % injection 3 mL Start: 11-03-2019 sodium chlorid e flush 0.9 % injection 3 mL thiamine 100 mg oral tablet (13 sources) Start: 11-16-2020 End: 03-17-2021 take 1 tablet by mouth once daily thiamine 100 MG tablet Take 1 (one) tablet (100 mg total) by mouth daily . 30 tablet 3 03/16/2021 Active Start: 10-21-2020 thiamine monon itrate tablet 100 mg Start: 10-20-2020 End: 10-20-2020 100 mg, Intravenous, DAILY, First dose on Rocio 10/20/20 at 0900 traZODone hydrochloride 50 mg oral tablet (20 sources) Serotonin Reuptake Inhibitor Start: 03-11-2021 End: 03-17-2021 take 1 tablet by mouth once daily as needed for sleep traZODone (DESYREL) 50 MG tablet Take 1 (one) tablet (50 mg total) by mouth nightly as needed for sleep . 30 tablet 2 03/16/2021 Active Start: 02-22-2021 End: 03-17-2021 take 2 tablets by mouth once daily traZODone (DESYREL) 100 MG tablet Take 200 mg by mouth nightly . 0 02/22/2021 03/17/2021 Discontinued (Stop Taking at Discharge) Start: 02-17-2021 traZODone (RAJ YREL) tablet 100 mg Start: 02-15-2021 End: 02-15-2021 traZODone (DESYREL) tablet 5 0 mg Start: 10-22-2020 take 100 mg by mouth once angel y 100 mg, Oral, NIGHTLY, First dose on 10/22/20 at 2100 Start: 05-14-2019 End: 12-27-2020 TRAZODONE HCL 100 MG TABS ta ke one to one and a half at bedtime TRAZODONE HCL [id number] Joe Song PA-C Start: 12-26-2014 End: 02-06-2022 take 200 mg by mouth once daily at bedtime Trazodone Discontinued 200 MG PO QHS@2100 December 26, 2014 12:00am February 06, 2022 3:53pm trazodone HCl (T RAZODONE ORAL) trazodone oral 0 Suspended trazodone HCl (T RAZODONE ORAL) trazodone oral 0 Active Comment on above: trazodone oral vitamin b12 0.5 mg oral tablet (9 sources) Vitamin B12 Start: 12-28-2020 End: 03-16-2021 take 1 tablet by mouth once daily cyanocobalamin (B-12) 500 MCG tablet Take 1 (one) tablet (500 mcg total) by mouth daily . 30 tablet 2 03/16/2021 Active Start: 12-13-2020 take 500 ug by mouth once daily 500 mcg, Oral, DAILY, First dose on Sat12/13/20 at 1145 End: 12-27-2020 Cyanocobalamin (VITAMIN B-12 PO) Take by mouth daily 0 12/27/2020 Discontinued (Stop Taking at Discharge) Cyanocobalamin ( VITAMIN B-12 PO) Take by mouth daily 0 Active Completed/Discontinued Medications Medication Drug Class(es) Dates Sig (Normalized) Sig (Original) acetaminophen 500 mg oral tablet (10 sources) Start: 09-27-2022 take 2 tablets by mouth every eight hours as needed acetaminophen (TYLENOL) 500 mg tablet Take 2 tablets by mouth every 8 hours as needed for pain. 0 09/27/2022 Suspended Start: 03-11-2021 End: 03-17-2021 take 1 tablet by mouth every four hours as needed for headache 650 mg, Oral, Every 4 hours PRN, headaches, pain, Starting on 03/11/21 at 1321 Start: 01-14-2021 650 mg, Oral, EVERY 4 HOURS PRN, Pain Mild (1-3), Pain Mild (1-3) or Fever greater than 100.5 F (38 C), Starting 01/14/21 at 0037 Maximum dose of acetaminophen is 4000 mg from all sources in 24 hours. Start: 12-12-2020 acetaminophen (TYLENOL) tablet 650 mg Start: 10-23-2020 End: 10-24-2020 take 2 tablets by mouth every eight hours acetaminophen (TYLENOL) 500 MG tablet Take 2 tablets by mouth every 8 hours 120 tablet 3 10/24/2020 Active Start: 10-20-2020 acetaminophen (TYLENOL) tablet 1,000 mg Start: 10-19-2020 End: 10-20-2020 acetaminophen (OFIRMEV) infu gisella 1,000 mg Start: 05-14-2019 TYLENOL EXTRA STRENGTH 500 MG TABS take as needed ACETAMINOPHEN [id number] Joe Song PA-C Comment on above: Take 2 tablets by mo [facility] every 8 hours as needed for pain. aluminum hydroxide 40 mg/ml / magnesium hydroxide 40 mg/ml / simethicone 4 mg/ml oral suspension (1 source) Start: 03-11-20 End: 03-11-20 take 30 mL by mouth every four hours as needed aluminum-magnesium hydroxide-simethic one (MAALOX PLUS) 200-200-20 mg/5 mL suspension 30 mL cefTRIAXone 1000 mg injection (1 source) Cephalosporin Antibacterial Start: 03-11-20 End: 03-15-20 cefTRIAXone (ROCEPHIN) IVPB 1 g (premix) cefTRIAXone (ROCEPHIN) 1 g IVPB in NS 50ml minibag (1 source) Start: 10-20-19 End: 10-20-19 cefTRIAXone (ROCEPHIN) 1 g IVPB in NS 50ml minibag dicyclomine hydrochloride 10 mg oral capsule (2 sources) Anticholinergic Start: 03-11-20 End: 03-17-20 take 1 capsule by mouth every six hours as needed 10 mg, Oral, Every 6 hours PRN, as needed for abdominal cramps, Starting on 03/11/21 at 1321 Start: 01-15-2021 dicyclomine (B ENTYL) injection 20 mg 1 ml diphenhydrAMINE hydrochloride 50 mg/ml cartridge (1 source) Histamine-1 Receptor Antagonist Start: 01-14-2021 End: 01-14-2021 diphenhydrAMINE (BENADRYL) injection 25 mg Start: 01-14-2021 End: 01-14-2021 diphenhydrAMINE (BENADRYL) i njection 25 mg DULoxetine 60 mg delayed release oral capsule (17 sources) Serotonin and Norepinephrine Reuptake Inhibitor Start: 02-20-2021 End: 03-17-2021 take 60 mg by mouth once daily 60 mg, Oral, Daily, First dose on 03/11/21 at 0900 DO NOT CRUSH OR CHEW. Start: 02-15-2021 take 1 capsule by mo uth once daily 60 mg, Oral, DAILY, First dose on Sat02/15/21 at 2030 Do not crush or break. May add contents of capsule to apple juice or apple sauce, but not chocolate. Start: 01-14-2021 take 1 capsule by mo uth once daily 60 mg, Oral, DAILY, First dose on 01/14/21 at 0900 Do not crush or break. May add contents of capsule to apple juice or apple sauce, but not chocolate. Start: 12-20-2020 DULoxetine (CY MBALTA) extended release capsule 30 mg Start: 05-14-2019 CYMBALTA CPEP take one capsule once daily DULOXETINE HCL CPEP [id number] Joe Song PA-C Start: 12-26-2014 End: 12-19-2020 take 1 capsule by mouth once daily 60 mg, Oral, DAILY, First dose on Sat12/13/20 at 1145 Do not crush or break. May add contents of capsule to apple juice or apple sauce, but not chocolate. duloxetine HCl ( CYMBALTA ORAL) Cymbalta oral 0 Active Comment on above: Cymbalta oral 0.4 ml enoxaparin sodium 100 mg/ml prefilled syringe (3 sources) Low Molecular Weight Heparin Start: End: inject 40 mg by subcutaneous injection once daily 40 mg, Subcutaneous, Daily, First dose on 03/11/21 at 1415 Administer in abdomen unless otherwise directed by prescriber. Notify physician if patient refuses. Indication: VTE Prophylaxis Start: 02-15-2021 inject 40 mg by subc utaneous injection once daily 40 mg, Subcutaneous, DAILY, First dose on Sat02/15/21 at 1905 Start: 10-23-2020 enoxaparin (LO VENOX) injection 30 mg 1.7 ml EPINEPHrine 0.01 mg/ml / lidocaine hydrochloride 20 mg/ml cartridge (1 source) Antiarrhythmic, alpha-Adrenergic Agonist, beta-Adrenergic Agonist, Catecholamine, Amide Local Anesthetic Start: 01-13-2021 End: 01-13-2021 lidocaine-EPINEPHrine 2 percent-1:[id number] injection folic acid 1 mg oral tablet (11 sources) Start: 03-11-2021 folic acid injection 1 mg Start: 11-16-2020 End: 03-17-2021 folic acid (FOLVITE) tablet 1 mg Start: 10-21-2020 folic acid (FO LVITE) tablet 1 mg folic acid 1 mg in dextrose 5 % 50 mL IVPB (1 source) Start: 10-20-2020 End: 10-21-2020 1 mg, Intravenous, at 100 mL/hr, Administer over 30 Minutes, DAILY, First dose on Sat10/20/20 at 0900 iopamidol (ISOVUE-370) 76 % injection 130 mL (1 source) Start: 01-14-2021 End: 01-14-2021 iopamidol (ISOVUE-370) 76 % injection 130 mL iopamidol (ISOVUE-370) 76 % injection 75 mL (1 source) Start: 10-19-2020 End: 10-19-2020 iopamidol (ISOVUE-370) 76 % injection 75 mL levETIRAcetam 500 mg oral tablet (3 sources) Start: 10-20-2020 End: 10-30-2020 take 1 tablet by mouth twice daily levETIRAcetam (KEPPRA) 500 MG tablet Take 1 tablet by mouth 2 times daily for 6 days 12 tablet 0 10/23/2020 10/24/2020 Discontinued levETIRAcetam (KEPPRA) 500 mg in sodium chloride 0.9 % 100 mL IVPB (1 source) Start: 10-19-2020 End: 10-20-2020 levETIRAcetam (KEPPRA) 500 mg in sodium chloride 0.9 % 100 mL IVPB levothyroxine sodium 0.025 mg oral tablet (15 sources) l-Thyroxi ne Start: 03-11-2021 End: 03-17-2021 take 50 ug by mouth once daily 50 mcg, Oral, Daily, First dose on 03/11/21 at 0715 For patients on continuous tube feed: Hold TF from 1 hr before until 1 hr after each dose. TF rate may need adjustment to meet caloric needs. Start: 11-16-2020 End: 03-16-2021 take 1 tablet by mouth once daily levothyroxine (SYNTHROID, LEVOTHROID) 50 MCG tablet Take 1 (one) tablet (50 mcg total) by mouth daily . 30 tablet 3 03/16/2021 Active Start: 10-20-2020 take 50 ug by mouth once daily 50 mcg, Oral, DAILY, First dose on Rocio 10/20/20 at 1115 Tube feeding (TF) interaction, obtain physician order to manage, recommend holding TF for 30 minutes before and after dose. Start: 05-14-2019 LEVOTHYROXINE SODIUM 50 MCG TABS take one tablet once daily LEVOTHYROXINE SODIUM [id number] Joe Song PA-C levothyroxine so dium (SYNTHROID ORAL) Synthroid oral 0 Suspended Levothyroxine So dium 50 MCG CAPS Take by mouth Daily 0 Active levothyroxine so dium (SYNTHROID ORAL) Synthroid oral 0 Active Comment on above: Synthroid oral lidocaine 0.05 mg/mg medicated patch (1 source) Antiarrhythmic, Amide Local Anesthetic Start: 03-14-2021 End: 03-17-2021 lidocaine (LIDODERM) 1 patch loperamide hydrochloride 2 mg oral capsule (1 source) Opioid Agonist Start: 03-11-2021 End: 03-17-2021 2 mg, Oral, As needed, diarrhea, after each loose stool, Starting on 03/11/21 at 1321 [] Maximum 8 doses per 24 hour period. LORazepam 0.5 mg oral tablet (2 sources) Benzodiazepine Start: 02-17-2021 End: 02-17-2021 LORazepam (ATIVAN) tablet 0.5 mg Start: 10-19-2020 LORazepam (ATI VAN) tablet 1 mg 50 ml magnesium sulfate 40 m g/ml injection (5 sources) Start: 02-18-2021 End: 02-18-2021 magnesium sulfate 2000 mg in 50 mL IVPB premix Start: 12-14-2020 End: 12-15-2020 magnesium sulfate 2000 mg in 50 mL IVPB premix Start: 10-20-2020 End: 10-21-2020 magnesium sulfate 4 g in 100 mL IVPB premix 24 hr metoprolol succinate 25 mg extended release oral tablet (3 sources) beta-Adrenergic Alvaro Start: 03-06-2021 End: 03-17-2021 take 25 mg by mouth once daily 25 mg, Oral, Daily, First dose on Sat03/11/21 at 0900 DO NOT CRUSH OR CHEW. multivitamin (THERAGRAN) per tablet 1 tablet (2 sources) Start: 03-15-2021 End: 03-17-2021 multivitamin (THERAGRAN) per tablet 1 tablet Start: 03-11-2021 End: 03-14-2021 multivitamin (THERAGRAN) per tablet 1 tablet NONFORMULARY (1 source) End: 10-23-2020 take 1000 mg by mouth once daily NONFORMULARY Take 1,000 mg by mouth daily S-adenosylmethosine 0 10/23/2020 Discontinued (Stop Taking at Discharge) microencapsulated potassium chloride 20 meq extended release oral tablet (3 sources) Start: 02-18-2021 End: 02-18-2021 potassium chloride (KLOR-CON M) extended release tablet 40 mEq Start: 12-14-2020 End: 12-14-2020 potassium chloride (KLOR-CON M) extended release tablet 40 mEq Start: 10-20-2020 End: 10-20-2020 potassium chloride 10 mEq/10 0 mL IVPB (Peripheral Line) Sodium Chloride (20 sources) Start: 03-11-2021 End: 03-17-2021 sodium chloride (PF) (NS) fl ush 5 mL Start: 02-15-2021 take 1 dose intraven ously twice daily 5-40 mL, Intravenous, EVERY 12 HOURS SCHEDULED (2 times per day), First dose on Sat02/15/21 at 2100 For Line Patency: Peripheral IV = 5 mL; Midline or Central Line = 10 mL/lumen. If following IV push medication, administer flush at same rate as the IV push. Flush volume is determined by type of infusion therapy being given. For non-viscous solutions use: Peripheral IV = 5 mL Midline or Central Line = 10 mL/lumen For viscous solutions (i.e. blood components, parenteral nutrition, contrast media, or after obtaining blood sample) use: Peripheral IV = 10 mL Midline or Central Line = 20 mL/lumen Start: 02-15-2021 take 25 mL intraveno usly every hour as needed 25 mL, Intravenous, at 100 mL/hr, PRN, If patient receiving piggyback infusions without ordered maintenance IV fluids or with frequent/long duration piggyback infusions, Starting Sat02/15/21 at 2006 Administer at the same rate as the piggyback being infused. Start: 02-15-2021 take 5-40 mL intrave nously once as needed 5-40 mL, Intravenous, PRN, Line Care, After every IV line use, Starting Sat02/15/21 at 2006 For Line Patency: Peripheral IV = 5 mL; Midline or Central Line = 10 mL/lumen. If following IV push medication, administer flush at same rate as the IV push. Flush volume is determined by type of infusion therapy being given. For non-viscous solutions use: Peripheral IV = 5 mL Midline or Central Line = 10 mL/lumen For viscous solutions (i.e. blood components, parenteral nutrition, contrast media, or after obtaining blood sample) use: Peripheral IV = 10 mL Midline or Central Line = 20 mL/lumen Start: 02-15-2021 0.9 % sodium c hloride infusion Start: 01-14-2021 10 mL, Intrave nous, EVERY 12 HOURS SCHEDULED (2 times per day), First dose on 01/14/21 at 0900 Start: 01-14-2021 take 10 mL intraveno us route once as needed 10 mL, Intravenous, PRN, Line Care, After every IV line use, Starting 01/14/21 at 0037 Start: 01-14-2021 End: 01-14-2021 Intravenous, at 100 mL/hr, C ONTINUOUS, Starting 01/14/21 at 0100 Start: 01-14-2021 take 25 mL intraveno us route every hour as needed 25 mL, Intravenous, at 100 mL/hr, PRN, If patient receiving piggyback infusions without ordered maintenance IV fluids or with frequent/long duration piggyback infusions, Starting 01/14/21 at 0037 Administer at the same rate as the piggyback being infused. Start: 01-13-2021 End: 01-13-2021 0.9 % sodium chloride bolus Start: 12-16-2020 End: 12-24-2020 sodium chloride tablet 1 g Start: 12-15-2020 End: 12-15-2020 0.9 % sodium chloride infusi on Start: 12-12-2020 End: 12-14-2020 0.9 % sodium chloride infusi on Start: 12-12-2020 sodium chlorid e flush 0.9 % injection 10 mL Start: 10-22-2020 sodium chlorid e tablet 1 g Start: 10-19-2020 10 mL, Intrave nous, EVERY 12 HOURS SCHEDULED (2 times per day), First dose on Sat10/19/20 at 2215 Start: 10-19-2020 take 10 mL intraveno us route once as needed 10 mL, Intravenous, PRN, Line Care, After every IV line use, Starting Sat10/19/20 at 2133 Start: 10-19-2020 End: 10-20-2020 Intravenous, at 100 mL/hr, C ONTINUOUS, Starting Sat10/19/20 at 2215 Start: 11-03-2019 End: 11-03-2019 0.9 % sodium chloride bolus thiamine (B-1) 500 mg in sod ium chloride 0.9 % (NS) 250 mL IVPB (2 sources) Start: 03-13-2021 End: 03-13-2021 thiamine (B-1) 500 mg in sod ium chloride 0.9 % (NS) 250 mL IVPB Start: 03-11-2021 End: 03-13-2021 thiamine (B-1) 500 mg in sod ium chloride 0.9 % (NS) 250 mL IVPB valACYclovir 500 mg oral tablet (2 sources) Herpesvirus Nucleoside Analog DNA Polymerase Inhibitor, Herpes Simplex Virus Nucleoside Analog DNA Polymerase Inhibitor, Herpes Zoster Virus Nucleoside Analog DNA Polymerase Inhibitor Start: 06-13-2020 take 1 tablet by mouth twice daily, then take 1 tablet by mouth twice daily valACYclovir (VALTREX) 500 mg tablet Indications: HSV-2 infection Take 1 tablet by mouth twice daily. 1 tablet twice daily x 3d for outbreak or daily for suppression 90 tablet 3 06/13/2020 Suspended Comment on above: Take 1 tablet by chetna twice daily. 1 tablet twice daily x 3d for outbreak or daily for suppression Zinc (2 sources) End: 12-27-2020 take 1 tablet by mouth once daily zinc 50 MG TABS tablet Take 50 mg by mouth daily 0 12/27/2020 Discontinued (Stop Taking at Discharge) take 1 tablet by mouth once angel y zinc 50 MG TABS tablet Take 50 mg by mouth daily 0 Active Problems Active Problems Problem Classification Problem Date Documented Da te Episodic/Chronic Acute and unspecified renal failure (8 sources) Injury of kidney; Translations: [Acute kidney failure, unspecified] 12-16-2022 Episodic Acute cerebrovascular disease (20 sources) Intracranial hemorrhage; Translations: [Intraparenchymal hemorrhage of brain] Onset: 1 10-19-2020 Chronic Administrative/social admission (2 sources) Patient encounter status; Translations: [Other specified counseling] 11-09-2020 Episodic Alcohol-related disorders (20 sources) Alcohol intoxication; Translations: [Alcohol withdrawal syndrome] Onset: 1 10-20-2020 Chronic Alcohol-related disorders (1 source) Alcohol intoxication; Translations: [Alcohol use, unspecified with intoxication, uncomplicated] 12-14-2020 Episodic Anxiety disorders (8 sources) Anxiety; Translations: [Anxiety disorder, unspecified] 02-05-2022 Chronic Attention-deficit conduct and disruptive behavior disorders (4 sources) Self-neglect; Translations: [Other symptoms and signs involving appearance and behavior] Onset: 1 12-14-2020 Episodic Cardiac dysrhythmias (2 sources) Sinus bradycardia; Translations: [Sinus bradycardia] 11-09-2020 Chronic Cardiac dysrhythmias (1 source) Sinus bradycardia; Translations: [Bradycardia, unspecified] 11-09-2020 Episodic Cataract (4 sources) Combined forms of age-related cataract, right eye; Translations: [Senile combined form cataract of right eye] Onset: 0 07-21-2020 Chronic Coagulation and hemorrhagic disorders (12 sources) Thrombocytopenic disorder; Translations: [Thrombocytopenia, unspecified] Onset: 3 12-16-2022 Chronic Diseases of white blood cells (8 sources) Leukocytosis; Translations: [Elevated white blood cell count, unspecified] 12-16-2022 Chronic Disorders of lipid metabolism (8 sources) Hyperlipidemia; Translations: [Hyperlipidemia, unspecified] 02-05-2022 Chronic E Codes: Fall (10 sources) Fall in home; Translations: [Unspecified fall, initial encounter] Onset: 1 Resolved: 1 01-14-2021 Episodic Epilepsy; convulsions (2 sources) Status epilepticus; Translations: [Epilepsy, unspecified, not intractable, with status epilepticus] Onset: 3 12-18-2022 Chronic Epilepsy; convulsions (18 sources) Post-ictal state; Translations: [Unspecified convulsions] Onset: 3 12-16-2022 Episodic External cause codes: Fall (4 sources) Fall; Translations: [Fall in home] Onset: 1 Resolved: 1 12-09-2020 Fluid and electrolyte disorders (20 sources) Hyponatremia; Translations: [Hypokalemia] Onset: 1 12-14-2020 Episodic Gastrointestinal hemorrhage (8 sources) Gastrointestinal hemorrhage; Translations: [Gastrointestinal hemorrhage, unspecified] 02-14-2022 Episodic Hypertension with complications and secondary hypertension (3 sources) Secondary hypertension; Translations: [Other secondary hypertension] 11-09-2020 Chronic Malaise and fatigue (1 source) Decline in functional status; Translations: [Other malaise] 11-14-2020 Episodic Miscellaneous mental health disorders (5 sources) Primary insomnia; Translations: [Primary insomnia] Onset: 1 10-23-2020 Chronic Mood disorders (13 sources) Recurrent major depression in partial remission; Translations: [Major depressive disorder, recurrent, in partial remission] Onset: 1 10-23-2020 Chronic Nutritional deficiencies (5 sources) Vitamin D deficiency; Translations: [Vitamin D deficiency, unspecified] Onset: 1 10-23-2020 Chronic Open wounds of head; neck; and trunk (7 sources) Laceration of forehead; Translations: [Facial laceration ] 09-22-2022 Episodic Other female genital disorders (1 source) Lesion of vulva; Translations: [Vulvar lesion] Episodic Other gastrointestinal disorders (1 source) Occult blood in stools; Translations: [Fecal occult blood test positive] Episodic Other hematologic conditions (5 sources) Erythrocytosis; Translations: [Secondary polycythemia] 12-16-2022 Episodic Other hematologic conditions (3 sources) Secondary polycythemia; Translations: [Polycythemia, secondary] 12-16-2022 Episodic Other injuries and conditions due to external causes (5 sources) Closed injury of head; Translations: [Unspecified injury of head, initial encounter] 10-22-2020 Episodic Other liver diseases (5 sources) Enzyme level - finding; Translations: [Abnormal levels of other serum enzymes] 12-16-2022 Episodic Other liver diseases (4 sources) Abnormal levels of other serum enzymes; Translations: [Nonspecific elevation of levels of transaminase or lactic acid dehydrogenase [LDH]] 12-16-2022 Episodic Other nervous system disorders (14 sources) Disorder of brain; Translations: [Encephalopathy, unspecified] Onset: 1 11-14-2020 Chronic Other nervous system disorders (3 sources) Encephalopathy, unspecified; Translations: [Encephalopathy, unspecified] Onset: 3 Chronic Other nervous system disorders (3 sources) Acute pain due to injury; Translations: [Acute pain due to trauma] 11-09-2020 Episodic Other nervous system disorders (3 sources) Impaired cognition; Translations: [Other symptoms and signs involving cognitive functions and awareness] 11-14-2020 Episodic Other nervous system disorders (8 sources) Toxic metabolic encephalopathy; Translations: [Toxic metabolic encephalopathy] 12-16-2022 Episodic Other nutritional; endocrine; and metabolic disorders (4 sources) Hypomagnesemia; Translations: [Hypomagnesemia] Onset: 1 12-14-2020 Chronic Other nutritional; endocrine; and metabolic disorders (5 sources) Hyperbilirubinemia; Translations: [Other disorders of bilirubin metabolism] 12-16-2022 Chronic Other nutritional; endocrine; and metabolic disorders (5 sources) Hypercalcemia; Translations: [Hypercalcemia] 12-16-2022 Chronic Other nutritional; endocrine; and metabolic disorders (3 sources) Other disorders of bilirubin metabolism; Translations: [Jaundice, unspecified, not of ] 12-16-2022 Chronic Other nutritional; endocrine; and metabolic disorders (3 sources) Hypercalcemia; Translations: [Hypercalcemia] 12-16-2022 Chronic Other screening for suspected conditions (not mental disorders or infectious disease) (5 sources) Raised TSH level; Translations: [Other specified abnormal findings of blood chemistry] Onset: 1 12-14-2020 Episodic Other skin disorders (4 sources) Mass lesion of brain; Translations: [Other specified disorders of brain] Onset: 1 12-14-2020 Chronic Other skin disorders (8 sources) Denuded skin; Translations: [Other skin changes] 01-23-2021 Episodic Other skin disorders (8 sources) Bullous dermatosis; Translations: [Rash and other nonspecific skin eruption] 01-23-2021 Episodic Poisoning by other medications and drugs (10 sources) Poisoning by unspecified drugs, medicaments and biological substances, accidental (unintentional), initial encounter; Translations: [Acute drug overdose] Episodic Prolapse of female genital organs (1 source) Midline cystocele; Translations: [Cystocele, midline] Chronic Residual codes; unclassified (1 source) Menopause present; Translations: [Menopause] Chronic Residual codes; unclassified (11 sources) Altered mental status; Translations: [Altered mental status, unspecified] 11-09-2020 Episodic Residual codes; unclassified (1 source) At risk of delirium; Translations: [Other specified personal risk factors, not elsewhere classified] Onset: 12-15-2020 Episodic Residual codes; unclassified (7 sources) Left against medical advice; Translations: [Procedure and treatment not carried out because of patient's decision for other reasons] 05-05-2022 Episodic Residual codes; unclassified (4 sources) Altered mental status, unspecified; Translations: [Altered mental status] 12-16-2022 Episodic Residual codes; unclassified (3 sources) At risk for delirium; Translations: [At risk for delirium] Onset: 1 12-15-2020 Residual codes; unclassified (2 sources) Decline in functional status; Translations: [Declining functional status] 11-14-2020 Respiratory failure; insufficiency; arrest (adult) (1 source) Dependence on respirator [ventilator] status; Translations: [On mechanically assisted ventilation (HCC)] Onset: 3 Chronic Respiratory failure; insufficiency; arrest (adult) (10 sources) Acute respiratory failure; Translations: [Acute respiratory failure, unspecified whether with hypoxia or hypercapnia] Onset: 3 12-16-2022 Episodic Septicemia (except in labor) (8 sources) Sepsis; Translations: [Sepsis, unspecified organism] 01-23-2021 Episodic Skull and face fractures (5 sources) Multiple face fractures; Translations: [Unspecified fracture of facial bones, initial encounter for closed fracture] 10-20-2020 Episodic Substance-related disorders (9 sources) Tobacco dependence syndrome; Translations: [Nicotine dependence, unspecified, uncomplicated] 12-16-2022 Chronic Suicide and intentional self-inflicted injury (8 sources) Suicidal thoughts; Translations: [Suicidal ideations] 02-14-2022 Episodic Superficial injury; contusion (9 sources) Contusion of foot; Translations: [Contusion of face] Onset: 9 05-14-2019 Episodic Thyroid disorders (9 sources) Hypothyroidism; Translations: [Hypothyroidism, unspecified] Onset: 3 02-05-2022 Chronic Unclassified (1 source) Unknown / UNK(Unknown) Onset: 7 Unclassified (1 source) Female genitalia finding; Translations: [Gynecologic exam normal] Unclassified (1 source) Cancer cervix screening status; Translations: [Cervical cancer screening] Unclassified (6 sources) Patient encounter status; Translations: [Breast screening] 11-09-2020 Unclassified (1 source) Acute hyperactive alcohol withdrawal delirium (HCC); Translations: [Acute hyperactive alcohol withdrawal delirium (HCC)] Onset: 3 Urinary tract infections (10 sources) Acute urinary tract infection; Translations: [Urinary tract infection, site not specified] Onset: 5 12-16-2022 Episodic Viral infection (3 sources) Other specified viral infection; Translations: [COVID-19] 11-15-2020 Episodic Past or Other Problems Problem Classification Problem Date Documented Date Episodic/Chronic Intracranial injury (14 sources) Cerebral laceration and contusion; Translations: [Traumatic hematoma of subdural space of neuraxis] Onset: 11-07-2020 10-20-2020 Episodic Nutritional deficiencies (5 sources) Cobalamin deficiency; Translations: [Deficiency of other specified B group vitamins] Onset: 10-23-2020 10-23-2020 Episodic Other connective tissue disease (1 source) Repeated falls; Translations: [Falls frequently] Onset: 09-14-2022 Episodic Other injuries and conditions due to external causes (1 source) Injury of head Episodic Unclassified (1 source) Alcohol use, unspecified with intoxication, uncomplicated Onset: 09-04-2017 Unclassified (1 source) Problem Results Test Name Value Interpretation Reference Range Facil ity Absolute lymphocyte countOrd ered By: Bari Albert on 05-03-2023 Lymphocytes Auto (Unsp spec) [#/Vol] 1.71 10*3/uL 0.83-4.51 [facility] Basophil percentageOrdered B y: Bari Albert on 05-03-2023 Basophils/100 WBC (Bld) 1.0 % 0-1 [facility] Bilirubin [Mass/Vol] 0.20 mg/dL 0.20-1.00 [facility] Comment on above: For patients on eltr ombopag therapy, use of Dimension [place] TBIL is not recommended. Chloride [Moles/Vol] 112 mmol/L 98-107 [facility] Eosinophils/100 WBC (Bld) 1.3 % 0-5 [facility] Glucose [Mass/Vol] 96 mg/dL 74-106 [facility] Neutrophils (Bld) [#/Vol] 4.0 10*3/uL 2.0-7.7 [facility] Neutrophils/100 WBC (Bld) 59.3 % 47-70 [facility] Potassium [Moles/Vol] 4.3 mmol/L 3.5-5.1 [facility] Protein [Mass/Vol] 7.2 g/dL 6.4-8.2 [facility] Sodium [Moles/Vol] 143 mmol/L 136-145 [facility] WBC (Bld) [#/Vol] 6.8 10*3/uL 4.4-11.0 [facility] Blood erythrocytes count (nu mber/volume)Ordered By: Bari Price on 05-03-2023 RBC (Bld) [#/Vol] 4.32 10*6/uL 4.2-5.4 [facility] Blood hemoglobin measurement (mass/volume)Ordered By: Bari Price on 05-03-2023 Hemoglobin (Bld) [Mass/Vol] 12.8 g/dL 12.0-15.0 [facility] Blood lymphocytes/100 leukoc ytesOrdered By: Bari Price on 05-03-2023 Lymphocytes/100 WBC (Bld) 25.0 % 19-41 [facility] Blood monocytes/100 leukocyt esOrdered By: Bari Price on 05-03-2023 Monocytes/100 WBC (Bld) 13.3 % 0-10 [facility] Blood platelet mean volumeOr dered By: Bari Price on 05-03-2023 Platelet mean volume (Bld) [Entitic vol] 11.3 fL 6.2-12.0 [facility] Determination of erythrocyte mean corpuscular volume (MCV)Ordered By: Bari Price on 05-03-2023 MCV (RBC) [Entitic vol] 95.8 fL 81-99 [facility] Hematocrit Auto (Bld) [Volum e fraction]Ordered By: Bari Price on 05-03-2023 Hematocrit (Bld) [Volume fraction] 41.4 % 37-47 [facility] Laboratory - Chemistry and C hemistry - challengeOrdered By: Bari Prcie on 05-03-2023 ALP [Catalytic activity/Vol] 99 U/L 45-117 [facility] ALT [Catalytic activity/Vol] 18 U/L 13-56 [facility] CO2 [Moles/Vol] 25.0 mmol/L 21.0-32.0 [facility] Globulin (S) [Mass/Vol] 4.1 g/dL 2.2-4.2 [facility] Natriuretic peptide B (Bld) [Mass/Vol] 4.3 pg/mL 0-100 [facility] Urea nitrogen/Creatinine [Mass ratio] 39.1 mg/mg 10-20 [facility] - Hematology and Cell countsOrdered By: Bari Price on 05-03-2023 Erythrocyte distribution width (RBC) [Entitic vol] 49.3 fL 35.1-43.9 [facility] Erythrocyte distribution width (RBC) [Ratio] 13.9 % 11.6-14.6 [facility] Immature granulocytes/100 WBC (Bld) 0.100 % 0.0-0.9 [facility] Comment on above: IG% - Immature Granu locytes (promyelocytes, myelocytes and metamyelocytes) > 1% indicates that a LEFT SHIFT is Present. MCH (RBC) [Entitic mass] 29.6 pg 27.0-32.0 [facility] Nucleated RBC/100 WBC (Bld) [Ratio] 0 % 0-5 [facility] MCHC Auto (RBC) [Mass/Vol]Or dered By: Bari Price on 05-03-2023 MCHC (RBC) [Mass/Vol] 30.9 g/dL 32-36 [facility] No Panel InformationOrdered By: Bari Price on 05-03-2023 Estimated GFR (MDRD) Amer 117 mL/min >60 [facility] Comment on above: GFR Calc Estimated GFR (MDRD) Non-Af Amer 97 mL/min >60 [facility] Comment on above: Non- GFR Calc Platelets bldOrdered By: Rolando Price on 05-03-2023 Platelets (Bld) [#/Vol] 232 10*3/uL 150-450 [facility] Serum or plasma albumin cony urement (mass/volume)Ordered By: Bari Price on 05-03-2023 Albumin [Mass/Vol] 3.1 g/dL 3.2-5.0 [facility] Serum or plasma albumin/glob ulin mass ratioOrdered By: Bari Price on 05-03-2023 Albumin/Globulin [Mass ratio] 0.8 {ratio} 0.9-2.4 [facility] Serum or plasma calcium cony urement (mass/volume)Ordered By: Bari Price on 05-03-2023 Calcium [Mass/Vol] 9.6 mg/dL 8.5-10.1 [facility] Serum or plasma creatinine m easurement (mass/volume)Ordered By: Bari Price on 05-03-2023 Creatinine [Mass/Vol] 0.64 mg/dL 0.55-1.02 [facility] Comment on above: The validity of the calculated GFR & GFRAA in patients over 70 years has not been determined. Clinical correlation is essential. Serum or plasma urea nitroge n measurement (mass/volume)Ordered By: Bari Price on 05-03-2023 Urea nitrogen [Mass/Vol] 25 mg/dL 7-18 [facility] Thin prep Papanicolaou smear with manual screeningOrdered By: Bari Price on 05-03-2023 Thin prep Papanicolaou smear with manual screening 18 U/L 15-37 [facility] Thin prep Papanicolaou smear with manual screening 6 5-15 [facility] Absolute lymphocyte countOrd ered By: Miguel Rosenberg on 03-18-2023 Lymphocytes Auto (Unsp spec) [#/Vol] 2.26 10*3/uL 0.83-4.51 [facility] Basophil percentageOrdered B y: Miguel Rosenberg on 03-18-2023 Basophils/100 WBC (Bld) 1.0 % 0-1 [facility] Chloride [Moles/Vol] 112 mmol/L 98-107 [facility] Eosinophils/100 WBC (Bld) 1.8 % 0-5 [facility] Glucose [Mass/Vol] 83 mg/dL 74-106 [facility] Neutrophils (Bld) [#/Vol] 4.8 10*3/uL 2.0-7.7 [facility] Neutrophils/100 WBC (Bld) 59.0 % 47-70 [facility] Potassium [Moles/Vol] 4.2 mmol/L 3.5-5.1 [facility] Sodium [Moles/Vol] 141 mmol/L 136-145 [facility] WBC (Bld) [#/Vol] 8.2 10*3/uL 4.4-11.0 [facility] Blood erythrocytes count (nu mber/volume)Ordered By: Miguel Rosenberg on 03-18-2023 RBC (Bld) [#/Vol] 4.29 10*6/uL 4.2-5.4 [facility] Blood hemoglobin measurement (mass/volume)Ordered By: Miguel Rosenberg on 03-18-2023 Hemoglobin (Bld) [Mass/Vol] 13.3 g/dL 12.0-15.0 [facility] Blood lymphocytes/100 leukoc ytesOrdered By: Miugel Rosenberg on 03-18-2023 Lymphocytes/100 WBC (Bld) 27.7 % 19-41 [facility] Blood monocytes/100 leukocyt esOrdered By: Miguel Rosenberg on 03-18-2023 Monocytes/100 WBC (Bld) 10.3 % 0-10 [facility] Blood platelet mean volumeOr dered By: Miguel Rosenberg on 03-18-2023 Platelet mean volume (Bld) [Entitic vol] 11.2 fL 6.2-12.0 [facility] Determination of erythrocyte mean corpuscular volume (MCV)Ordered By: Miguel Rosenberg on 03-18-2023 MCV (RBC) [Entitic vol] 95.8 fL 81-99 [facility] Hematocrit Auto (Bld) [Volum e fraction]Ordered By: Miguel Rosenberg on 03-18-2023 Hematocrit (Bld) [Volume fraction] 41.1 % 37-47 [facility] - Chemistry and C hemistry - challengeOrdered By: Miguel Rosenberg on 03-18-2023 CO2 [Moles/Vol] 23.0 mmol/L 21.0-32.0 [facility] Urea nitrogen/Creatinine [Mass ratio] 27.5 mg/mg 10-20 [facility] - Hematology and Cell countsOrdered By: Miguel Rosenberg on 03-18-2023 Erythrocyte distribution width (RBC) [Entitic vol] 47.1 fL 35.1-43.9 [facility] Erythrocyte distribution width (RBC) [Ratio] 13.3 % 11.6-14.6 [facility] Immature granulocytes/100 WBC (Bld) 0.200 % 0.0-0.9 [facility] Comment on above: IG% - Immature Granu locytes (promyelocytes, myelocytes and metamyelocytes) > 1% indicates that a LEFT SHIFT is Present. MCH (RBC) [Entitic mass] 31.0 pg 27.0-32.0 [facility] Nucleated RBC/100 WBC (Bld) [Ratio] 0 % 0-5 [facility] Auto (RBC) [Mass/Vol]Or dered By: Miguel Rosenberg on 03-18-2023 MCHC (RBC) [Mass/Vol] 32.4 g/dL 32-36 [facility] No Panel InformationOrdered By: Miguel Rosenberg on 03-18-2023 Estimated GFR (MDRD) Amer 114 mL/min >60 [facility] Comment on above: GFR Calc Estimated GFR (MDRD) Non-Af Amer 94 mL/min >60 [facility] Comment on above: Non- GFR Calc Platelets bldOrdered By: Salvador Rosenberg on 03-18-2023 Platelets (Bld) [#/Vol] 248 10*3/uL 150-450 [facility] Serum or plasma calcium cony urement (mass/volume)Ordered By: Miguel Rosenberg on 03-18-2023 Calcium [Mass/Vol] 9.1 mg/dL 8.5-10.1 [facility] Serum or plasma creatinine m easurement (mass/volume)Ordered By: Miguel Rosenberg on 03-18-2023 Creatinine [Mass/Vol] 0.66 mg/dL 0.55-1.02 [facility] Comment on above: The validity of the calculated GFR & GFRAA in patients over 70 years has not been determined. Clinical correlation is essential. Serum or plasma urea nitroge n measurement (mass/volume)Ordered By: Miguel Rosenberg on 03-18-2023 Urea nitrogen [Mass/Vol] 18 mg/dL 7-18 [facility] Thin prep Papanicolaou smear with manual screeningOrdered By: Miguel Rosenberg on 03-18-2023 Thin prep Papanicolaou smear with manual screening 6 5-15 [facility] Bilirubin Test strip Ql (U)O rdered By: Miguel Rosenberg on 02-25-2023 Bilirubin Ql (U) Negative Negative [facility] Culture, urineOrdered By: Malina Rosenberg on 02-25-2023 Bacteria identified Cx Nom (U) Presumptive E. coli [facility] Ketones Test strip Ql (U)Ord ered By: Miguel Rosenberg on 02-25-2023 Ketones Ql (U) 5 mg/dl Negative [facility] Nitrite Test strip Ql (U)Ord ered By: Miguel Rosenberg on 05-15-2023 Nitrite Ql (U) Positive Negative [facility] Protein Test strip Ql (U)Ord ered By: Miguel Rosenberg on 02-25-2023 Protein Ql (U) 15 mg/dl Negative [facility] Urine blood detectionOrdered By: Miguel Rosenberg on 02-25-2023 RBC Ql (U) 10 /ul Negative [facility] Urine clarityOrdered By: Salvador Rosenberg on 02-25-2023 Clarity (U) Sl. Cloudy Clear [facility] Urine color determinationOrd ered By: Miguel Rosenberg on 02-25-2023 Color (U) Yellow Yellow [facility] Urine glucose detectionOrder ed By: Miguel Rosenberg on 02-25-2023 Glucose Ql (U) Normal mg/dl Normal [facility] Urine leukocyte esterase det ection by dipstickOrdered By: Miguel Rosenberg on 02-25-2023 Leukocyte esterase Test strip Ql (U) 100 /ul Negative [facility] Urine pHOrdered By: Miguel interiano on 02-25-2023 pH (U) 6.0 [pH] 5.0 - 8.0 [facility] Urine specific gravity measu rementOrdered By: Miguel Rosenberg on 02-25-2023 Specific gravity (U) [Rel density] 1.025 1.002-1.030 [facility] Urobilinogen Auto test strip Ql (U)Ordered By: Miguel Rosenberg on 02-25-2023 Urobilinogen Ql (U) Normal mg/dl Normal [facility] Basophil percentageOrdered B y: Miguel Rosenberg on 02-14-2023 Chloride [Moles/Vol] 113 mmol/L 98-107 [facility] Glucose [Mass/Vol] 80 mg/dL 74-106 [facility] Potassium [Moles/Vol] 4.0 mmol/L 3.5-5.1 [facility] Sodium [Moles/Vol] 144 mmol/L 136-145 [facility] WBC (Bld) [#/Vol] 4.7 10*3/uL 4.4-11.0 [facility] Blood erythrocytes count (nu mber/volume)Ordered By: Miguel Rosenberg on 02-14-2023 RBC (Bld) [#/Vol] 4.08 10*6/uL 4.2-5.4 [facility] Blood hemoglobin measurement (mass/volume)Ordered By: Miguel Rosenberg on 02-14-2023 Hemoglobin (Bld) [Mass/Vol] 12.9 g/dL 12.0-15.0 [facility] Blood platelet mean volumeOr dered By: Miguel Rosenberg on 02-14-2023 Platelet mean volume (Bld) [Entitic vol] 11.9 fL 6.2-12.0 [facility] Determination of erythrocyte mean corpuscular volume (MCV)Ordered By: Miguel Rosenberg on 02-14-2023 MCV (RBC) [Entitic vol] 98.5 fL 81-99 [facility] Hematocrit Auto (Bld) [Volum e fraction]Ordered By: Miguel Rosebnerg on 02-14-2023 Hematocrit (Bld) [Volume fraction] 40.2 % 37-47 [facility] Laboratory - Chemistry and C hemistry - challengeOrdered By: Miguel Rosenberg on 02-14-2023 CO2 [Moles/Vol] 23.0 mmol/L 21.0-32.0 [facility] Urea nitrogen/Creatinine [Mass ratio] 30.8 mg/mg 10-20 [facility] Laboratory - Hematology and Cell countsOrdered By: Miguel Rosenberg on 02-14-2023 Erythrocyte distribution width (RBC) [Entitic vol] 50.0 fL 35.1-43.9 [facility] Erythrocyte distribution width (RBC) [Ratio] 13.8 % 11.6-14.6 [facility] MCH (RBC) [Entitic mass] 31.6 pg 27.0-32.0 [facility] MCHC Auto (RBC) [Mass/Vol]Or dered By: Miguel Rosenberg on 02-14-2023 MCHC (RBC) [Mass/Vol] 32.1 g/dL 32-36 [facility] No Panel InformationOrdered By: Miguel Rosenberg on 02-14-2023 Estimated GFR (MDRD) Amer 130 mL/min >60 [facility] Comment on above: GFR Calc Estimated GFR (MDRD) Non-Af Amer 108 mL/min >60 [facility] Comment on above: Non- GFR Calc Platelets bldOrdered By: Salvador Rosenberg on 02-14-2023 Platelets (Bld) [#/Vol] 199 10*3/uL 150-450 [facility] Serum or plasma calcium cony urement (mass/volume)Ordered By: Miguel Rosenberg on 02-14-2023 Calcium [Mass/Vol] 9.5 mg/dL 8.5-10.1 [facility] Serum or plasma creatinine m easurement (mass/volume)Ordered By: Miguel Rosenberg on 02-14-2023 Creatinine [Mass/Vol] 0.58 mg/dL 0.55-1.02 [facility] Comment on above: The validity of the calculated GFR & GFRAA in patients over 70 years has not been determined. Clinical correlation is essential. Serum or plasma urea nitroge n measurement (mass/volume)Ordered By: Miguel Rosenberg on 02-14-2023 Urea nitrogen [Mass/Vol] 18 mg/dL 7-18 [facility] Thin prep Papanicolaou smear with manual screeningOrdered By: Miguel Rosenberg on 02-14-2023 Thin prep Papanicolaou smear with manual screening 8 5-15 [facility] Absolute lymphocyte countOrd ered By: Dr. Bates on 01-23-2023 Lymphocytes Auto (Unsp spec) [#/Vol] 1.93 10*3/uL 0.83-4.51 [facility] Basophil percentageOrdered B y: Dr. Bates on 01-23-2023 Basophils/100 WBC (Bld) 1.4 % 0-1 [facility] Chloride [Moles/Vol] 112 mmol/L 98-107 [facility] Eosinophils/100 WBC (Bld) 2.3 % 0-5 [facility] Glucose [Mass/Vol] 84 mg/dL 74-106 [facility] Neutrophils (Bld) [#/Vol] 2.7 10*3/uL 2.0-7.7 [facility] Neutrophils/100 WBC (Bld) 48.9 % 47-70 [facility] Potassium [Moles/Vol] 4.2 mmol/L 3.5-5.1 [facility] Comment on above: Slight Hemolysis, Re sult may be falsely increased. Sodium [Moles/Vol] 140 mmol/L 136-145 [facility] WBC (Bld) [#/Vol] 5.6 10*3/uL 4.4-11.0 [facility] Blood erythrocytes count (nu mber/volume)Ordered By: Dr. Bates on 01-23-2023 RBC (Bld) [#/Vol] 3.70 10*6/uL 4.2-5.4 [facility] Blood hemoglobin measurement (mass/volume)Ordered By: Dr. Bates on 01-23-2023 Hemoglobin (Bld) [Mass/Vol] 11.9 g/dL 12.0-15.0 [facility] Blood lymphocytes/100 leukoc ytesOrdered By: Dr. Bates on 01-23-2023 Lymphocytes/100 WBC (Bld) 34.5 % 19-41 [facility] Blood monocytes/100 leukocyt esOrdered By: Dr. Bates on 01-23-2023 Monocytes/100 WBC (Bld) 12.5 % 0-10 [facility] Blood platelet mean volumeOr dered By: Dr. Batse on 01-23-2023 Platelet mean volume (Bld) [Entitic vol] 11.8 fL 6.2-12.0 [facility] Determination of erythrocyte mean corpuscular volume (MCV)Ordered By: Dr. Bates on 01-23-2023 MCV (RBC) [Entitic vol] 101.1 fL 81-99 [facility] Hematocrit Auto (Bld) [Volum e fraction]Ordered By: Dr. Bates on 01-23-2023 Hematocrit (Bld) [Volume fraction] 37.4 % 37-47 [facility] Laboratory - Chemistry and C hemistry - challengeOrdered By: Dr. Bates on 01-23-2023 CO2 [Moles/Vol] 23.0 mmol/L 21.0-32.0 [facility] Urea nitrogen/Creatinine [Mass ratio] 25.9 mg/mg 10-20 [facility] - Hematology and Cell countsOrdered By: Dr. Bates on 01-23-2023 Erythrocyte distribution width (RBC) [Entitic vol] 51.0 fL 35.1-43.9 [facility] Erythrocyte distribution width (RBC) [Ratio] 13.8 % 11.6-14.6 [facility] Immature granulocytes/100 WBC (Bld) 0.400 % 0.0-0.9 [facility] Comment on above: IG% - Immature Granu locytes (promyelocytes, myelocytes and metamyelocytes) > 1% indicates that a LEFT SHIFT is Present. MCH (RBC) [Entitic mass] 32.2 pg 27.0-32.0 [facility] Nucleated RBC/100 WBC (Bld) [Ratio] 0 % 0-5 [facility] MCHC Auto (RBC) [Mass/Vol]Or dered By: Dr. Bates on 01-23-2023 MCHC (RBC) [Mass/Vol] 31.8 g/dL 32-36 [facility] No Panel InformationOrdered By: Dr. Bates on 01-23-2023 Estimated GFR (MDRD) Amer 132 mL/min >60 [facility] Comment on above: GFR Calc Estimated GFR (MDRD) Non-Af Amer 109 mL/min >60 [facility] Comment on above: Non- GFR Calc Platelets bldOrdered By: Dr. Bates on 01-23-2023 Platelets (Bld) [#/Vol] 187 10*3/uL 150-450 [facility] Serum or plasma calcium cony urement (mass/volume)Ordered By: Dr. Bates on 01-23-2023 Calcium [Mass/Vol] 9.5 mg/dL 8.5-10.1 [facility] Serum or plasma creatinine m easurement (mass/volume)Ordered By: Dr. Bates on 01-23-2023 Creatinine [Mass/Vol] 0.58 mg/dL 0.55-1.02 [facility] Comment on above: The validity of the calculated GFR & GFRAA in patients over 70 years has not been determined. Clinical correlation is essential. Serum or plasma urea nitroge n measurement (mass/volume)Ordered By: Dr. Bates on 01-23-2023 Urea nitrogen [Mass/Vol] 15 mg/dL 7-18 [facility] Thin prep Papanicolaou smear with manual screeningOrdered By: Dr. Bates on 01-23-2023 Thin prep Papanicolaou smear with manual screening 5 5-15 [facility] Absolute lymphocyte countOrd ered By: Dr. Bates on 01-16-2023 Lymphocytes Auto (Unsp spec) [#/Vol] 1.59 10*3/uL 0.83-4.51 [facility] Basophil percentageOrdered B y: Dr. Bates on 01-16-2023 Basophils/100 WBC (Bld) 1.5 % 0-1 [facility] Chloride [Moles/Vol] 110 mmol/L 98-107 [facility] Eosinophils/100 WBC (Bld) 2.2 % 0-5 [facility] Glucose [Mass/Vol] 92 mg/dL 74-106 [facility] Neutrophils (Bld) [#/Vol] 2.3 10*3/uL 2.0-7.7 [facility] Neutrophils/100 WBC (Bld) 49.9 % 47-70 [facility] Potassium [Moles/Vol] 3.5 mmol/L 3.5-5.1 [facility] Sodium [Moles/Vol] 140 mmol/L 136-145 [facility] WBC (Bld) [#/Vol] 4.7 10*3/uL 4.4-11.0 [facility] Blood erythrocytes count (nu mber/volume)Ordered By: Dr. Bates on 01-16-2023 RBC (Bld) [#/Vol] 3.72 10*6/uL 4.2-5.4 [facility] Blood hemoglobin measurement (mass/volume)Ordered By: Dr. Bates on 01-16-2023 Hemoglobin (Bld) [Mass/Vol] 11.9 g/dL 12.0-15.0 [facility] Blood lymphocytes/100 leukoc ytesOrdered By: Dr. Bates on 01-16-2023 Lymphocytes/100 WBC (Bld) 34.2 % 19-41 [facility] Blood monocytes/100 leukocyt esOrdered By: Dr. Bates on 01-16-2023 Monocytes/100 WBC (Bld) 11.8 % 0-10 [facility] Blood platelet mean volumeOr dered By: Dr. Bates on 01-16-2023 Platelet mean volume (Bld) [Entitic vol] 11.6 fL 6.2-12.0 [facility] Determination of erythrocyte mean corpuscular volume (MCV)Ordered By: Dr. Bates on 01-16-2023 MCV (RBC) [Entitic vol] 103.0 fL 81-99 [facility] Hematocrit Auto (Bld) [Volum e fraction]Ordered By: Dr. Bates on 01-16-2023 Hematocrit (Bld) [Volume fraction] 38.3 % 37-47 [facility] - Chemistry and C hemistry - challengeOrdered By: Dr. Bates on 01-16-2023 CO2 [Moles/Vol] 24.0 mmol/L 21.0-32.0 [facility] Urea nitrogen/Creatinine [Mass ratio] 25.4 mg/mg 10-20 [facility] - Hematology and Cell countsOrdered By: Dr. Bates on 01-16-2023 Erythrocyte distribution width (RBC) [Entitic vol] 52.4 fL 35.1-43.9 [facility] Erythrocyte distribution width (RBC) [Ratio] 13.8 % 11.6-14.6 [facility] Immature granulocytes/100 WBC (Bld) 0.400 % 0.0-0.9 [facility] Comment on above: IG% - Immature Granu locytes (promyelocytes, myelocytes and metamyelocytes) > 1% indicates that a LEFT SHIFT is Present. MCH (RBC) [Entitic mass] 32.0 pg 27.0-32.0 [facility] Nucleated RBC/100 WBC (Bld) [Ratio] 0 % 0-5 [facility] MCHC Auto (RBC) [Mass/Vol]Or dered By: Dr. Bates on 01-16-2023 MCHC (RBC) [Mass/Vol] 31.1 g/dL 32-36 [facility] No Panel InformationOrdered By: Dr. Bates on 01-16-2023 Estimated GFR (MDRD) Amer 129 mL/min >60 [facility] Comment on above: GFR Calc Estimated GFR (MDRD) Non-Af Amer 106 mL/min >60 [facility] Comment on above: Non- GFR Calc Platelets bldOrdered By: Dr. Bates on 01-16-2023 Platelets (Bld) [#/Vol] 192 10*3/uL 150-450 [facility] Serum or plasma calcium cony urement (mass/volume)Ordered By: Dr. Bates on 01-16-2023 Calcium [Mass/Vol] 9.5 mg/dL 8.5-10.1 [facility] Serum or plasma creatinine m easurement (mass/volume)Ordered By: Dr. Bates on 01-16-2023 Creatinine [Mass/Vol] 0.59 mg/dL 0.55-1.02 [facility] Comment on above: The validity of the calculated GFR & GFRAA in patients over 70 years has not been determined. Clinical correlation is essential. Serum or plasma urea nitroge n measurement (mass/volume)Ordered By: Dr. Bates on 01-16-2023 Urea nitrogen [Mass/Vol] 15 mg/dL 7-18 [facility] Thin prep Papanicolaou smear with manual screeningOrdered By: Dr. Bates on 01-16-2023 Thin prep Papanicolaou smear with manual screening 6 5-15 [facility] Absolute lymphocyte countOrd ered By: Dr. Bates on 01-10-2023 Lymphocytes Auto (Unsp spec) [#/Vol] 1.81 10*3/uL 0.83-4.51 [facility] Basophil percentageOrdered B y: Dr. Bates on 01-10-2023 Basophils/100 WBC (Bld) 1.3 % 0-1 [facility] Chloride [Moles/Vol] 111 mmol/L 98-107 [facility] Eosinophils/100 WBC (Bld) 4.0 % 0-5 [facility] Glucose [Mass/Vol] 95 mg/dL 74-106 [facility] Neutrophils (Bld) [#/Vol] 2.7 10*3/uL 2.0-7.7 [facility] Neutrophils/100 WBC (Bld) 49.4 % 47-70 [facility] Potassium [Moles/Vol] 3.7 mmol/L 3.5-5.1 [facility] Comment on above: Slight Hemolysis, Re sult may be falsely increased. Sodium [Moles/Vol] 142 mmol/L 136-145 [facility] WBC (Bld) [#/Vol] 5.4 10*3/uL 4.4-11.0 [facility] Blood erythrocytes count (nu mber/volume)Ordered By: Dr. Bates on 01-10-2023 RBC (Bld) [#/Vol] 3.85 10*6/uL 4.2-5.4 [facility] Blood hemoglobin measurement (mass/volume)Ordered By: Dr. Bates on 01-10-2023 Hemoglobin (Bld) [Mass/Vol] 12.5 g/dL 12.0-15.0 [facility] Blood lymphocytes/100 leukoc ytesOrdered By: Dr. Bates on 01-10-2023 Lymphocytes/100 WBC (Bld) 33.3 % 19-41 [facility] Blood monocytes/100 leukocyt esOrdered By: Dr. Bates on 01-10-2023 Monocytes/100 WBC (Bld) 11.6 % 0-10 [facility] Blood platelet mean volumeOr dered By: Dr. Bates on 01-10-2023 Platelet mean volume (Bld) [Entitic vol] 11.4 fL 6.2-12.0 [facility] Determination of erythrocyte mean corpuscular volume (MCV)Ordered By: Dr. Bates on 01-10-2023 MCV (RBC) [Entitic vol] 102.9 fL 81-99 [facility] Hematocrit Auto (Bld) [Volum e fraction]Ordered By: Dr. Bates on 01-10-2023 Hematocrit (Bld) [Volume fraction] 39.6 % 37-47 [facility] - Chemistry and C hemistry - challengeOrdered By: Dr. Bates on 01-10-2023 CO2 [Moles/Vol] 24.0 mmol/L 21.0-32.0 [facility] Cobalamin (Vitamin B12) [Mass/Vol] 815 pg/mL 211-911 [facility] Magnesium [Mass/Vol] 1.8 mg/dL 1.6-2.6 [facility] Comment on above: Slight Hemolysis, Re sult may be falsely increased. Urea nitrogen/Creatinine [Mass ratio] 28.7 mg/mg 10-20 [facility] - Hematology and Cell countsOrdered By: Dr. Bates on 01-10-2023 Erythrocyte distribution width (RBC) [Entitic vol] 55.5 fL 35.1-43.9 [facility] Erythrocyte distribution width (RBC) [Ratio] 14.5 % 11.6-14.6 [facility] Immature granulocytes/100 WBC (Bld) 0.400 % 0.0-0.9 [facility] Comment on above: IG% - Immature Granu locytes (promyelocytes, myelocytes and metamyelocytes) > 1% indicates that a LEFT SHIFT is Present. MCH (RBC) [Entitic mass] 32.5 pg 27.0-32.0 [facility] Nucleated RBC/100 WBC (Bld) [Ratio] 0 % 0-5 [facility] MCHC Auto (RBC) [Mass/Vol]Or dered By: Dr. Bates on 01-10-2023 MCHC (RBC) [Mass/Vol] 31.6 g/dL 32-36 [facility] No Panel InformationOrdered By: Dr. Bates on 01-10-2023 Estimated GFR (MDRD) Amer 101 mL/min >60 [facility] Comment on above: GFR Calc Estimated GFR (MDRD) Non-Af Amer 83 mL/min >60 [facility] Comment on above: Non- GFR Calc Thyroid Stimulating Hormone (TSH) 4.12 uIU/mL 0.358-3.74 [facility] Vitamin D 25-Hydroxy 40.4 ng/mL [facility] Comment on above: Vitamin D 25(OH) Sta tus Range Deficiency <20 ng/mL (50nmol/L) Insufficiency 20 - 30 ng/mL (50 - 75 nmol/L) Sufficiency 30 - 100 ng/mL (75 - 250 nmol/L) Toxicity >100 ng/mL (>250 nmol/L) Platelets bldOrdered By: Dr. Bates on 01-10-2023 Platelets (Bld) [#/Vol] 200 10*3/uL 150-450 [facility] Serum or plasma calcium cony urement (mass/volume)Ordered By: Dr. Bates on 01-10-2023 Calcium [Mass/Vol] 10.0 mg/dL 8.5-10.1 [facility] Serum or plasma creatinine m easurement (mass/volume)Ordered By: Dr. Bates on 01-10-2023 Creatinine [Mass/Vol] 0.73 mg/dL 0.55-1.02 [facility] Comment on above: The validity of the calculated GFR & GFRAA in patients over 70 years has not been determined. Clinical correlation is essential. Serum or plasma urea nitroge n measurement (mass/volume)Ordered By: Dr. Bates on 01-10-2023 Urea nitrogen [Mass/Vol] 21 mg/dL 7-18 [facility] Thin prep Papanicolaou smear with manual screeningOrdered By: Dr. Bates on 01-10-2023 Thin prep Papanicolaou smear with manual screening 7 5-15 [facility] CASE MANAGEMon 01-09-2023 CASE MANAGEM Normal [facility] CASE MANAGEM Normal [facility] CASE MANAGEM Normal [facility] CNDSon 01-09-2023 CNDS Normal [facility] NURSING PROGon 01-09-2023 NURSING PROG Normal [facility] SARS-CoV-2 RNA Resp Ql CY+p robeon 01-09-2023 SARS-CoV-2 (COVID-19) RNA CY+probe Ql (Resp) COVID 19 RESULT: Not detected The method used is RT-PCR or an equivalent NAAT method. Reference Range(the expected result in uninfected individuals): Not detected Normal [facility] Comment on above: Performed By: #### 9 4500-6 ####[facility]ORATORYCLIA [id number] [address] STATES OF [facility] CASE MANAGEMon 01-08-2023 CASE MANAGEM Normal [facility] NUTRITIONon 01-08-2023 NUTRITION Normal [facility] THERAPY NTon 01-08-2023 THERAPY NT Normal [facility] THERAPY NT Normal [facility] THERAPY NT Normal [facility] CASE MANAGEMon 01-07-2023 CASE MANAGEM Normal [facility] CONSULT PROGon 01-07-2023 CONSULT PROG Normal [facility] NURSING PROGon 01-06-2023 NURSING PROG Normal [facility] NURSING PROGon 01-05-2023 NURSING PROG Normal [facility] NURSING PROG Normal [facility] CASE MANAGEMon 01-04-2023 CASE MANAGEM Normal [facility] CASE MANAGEM Normal [facility] CBC W Auto Differential pane l (Bld)on 01-04-2023 Basophils (Bld) [#/Vol] 0.09 10*3/uL Normal <0.11 [facility] Comment on above: Order Comment: Speci men Type: BLOOD SPECIMENOrdering Facility: [facility] Address: [address] [address] Performed By: #### 5 7021-8 ####[facility]ORYCLIA [id number] [place] [address] [place] Basophils/100 WBC (Bld) 1.5 % Normal [facility] Comment on above: Order Comment: Speci men Type: BLOOD SPECIMENOrdering Facility: [facility] Address: [address] [place] [address] Performed By: #### 5 7021-8 ####[facility]ORY[facility] [id number] [address] [place] Differential cell count method Nom (Bld) Auto Normal [facility] Comment on above: Order Comment: Speci men Type: BLOOD SPECIMENOrdering Facility: [facility] Address: [address] [place] [address] Performed By: #### 5 7021-8 ####[facility]ORYCLIA [id number] [place] [address] [place] Eosinophils (Bld) [#/Vol] 0.17 10*3/uL Normal <0.46 [facility] Comment on above: Order Comment: Speci men Type: BLOOD SPECIMENOrdering Facility: [facility] Address: [address] [address] Performed By: #### 5 7021-8 ####[facility]ORYCLIA [id number] [address] [place] Eosinophils/100 WBC (Bld) 2.8 % Normal [facility] Comment on above: Order Comment: Speci men Type: BLOOD SPECIMENOrdering Facility: [facility] Address: [address] [address] Performed By: #### 5 7021-8 ####[facility] [id number] [address] [place] Erythrocyte distribution width (RBC) [Ratio] 14.5 % Normal 11.5-15.0 [facility] Comment on above: Order Comment: Speci men Type: BLOOD SPECIMENOrdering Facility: [facility] Address: [address] [place] [address] Performed By: #### 5 7021-8 ####[facility]ORYCLIA [id number] [address] [place] Hematocrit (Bld) [Volume fraction] 32.0 % Low 36.0-46.0 [facility] Comment on above: Order Comment: Speci men Type: BLOOD SPECIMENOrdering Facility: [facility] Address: [address] [place] [address] Performed By: #### 5 7021-8 ####[facility]ORYCLIA [id number] [address] [place] Hemoglobin (Bld) [Mass/Vol] 10.5 g/dL Low 11.5-15.5 [facility] Comment on above: Order Comment: Speci men Type: BLOOD SPECIMENOrdering Facility: [facility] Address: [address] [place] [address] Performed By: #### 5 7021-8 ####[facility]ORYCLIA [id number] [address] [place] Immature granulocytes (Bld) [#/Vol] 10*3/uL Normal <0.10 [facility] Comment on above: Order Comment: Speci men Type: BLOOD SPECIMENOrdering Facility: [facility] Address: [address] [place] [address] Performed By: #### 5 7021-8 ####[facility]ORYCLIA [id number] [address] Immature granulocytes/100 WBC (Bld) 0.3 % Normal [facility] Comment on above: Order Comment: Speci men Type: BLOOD SPECIMENOrdering Facility: [facility] Address: [address] [address] Performed By: #### 5 7021-8 ####[facility]ORYCLIA [id number] [address] Lymphocytes (Bld) [#/Vol] 1.35 10*3/uL Normal 1.00-4.00 [facility] Comment on above: Order Comment: Speci men Type: BLOOD SPECIMENOrdering Facility: [facility] Address: [address] [place] [address] Performed By: #### 5 7021-8 ####[facility]ORYCLIA [id number] [address] Lymphocytes/100 WBC (Bld) 22.6 % Normal [facility] Comment on above: Order Comment: Speci men Type: BLOOD SPECIMENOrdering Facility: [facility] Address: [address] [place] [address] Performed By: #### 5 7021-8 ####[facility]ORYCLIA [id number] [address] MCH (RBC) [Entitic mass] 32.7 pg Normal 26.0-34.0 [facility] Comment on above: Order Comment: Speci men Type: BLOOD SPECIMENOrdering Facility: [facility] Address: [address] [place] [address] Performed By: #### 5 7021-8 ####[facility]ORYCLIA [id number] [address] MCHC (RBC) [Mass/Vol] 32.8 g/dL Normal 30.5-36.0 [facility] Comment on above: Order Comment: Speci men Type: BLOOD SPECIMENOrdering Facility: [facility] Address: [address] [place] [address] Performed By: #### 5 7021-8 ####[facility]ORYCLIA [id number] [address] MCV (RBC) [Entitic vol] 99.7 fL Normal 80.0-100.0 [facility] [facility] Comment on above: Order Comment: Speci men Type: BLOOD SPECIMENOrdering Facility: [facility] Address: [address] [place] [address] Performed By: #### 5 7021-8 ####[facility]ORATORYCLIA [id number] [place] [address] [place] Monocytes (Bld) [#/Vol] 0.68 10*3/uL Normal <0.87 [facility] Comment on above: Order Comment: Speci men Type: BLOOD SPECIMENOrdering Facility: [facility] Address: [address] [place] [address] Performed By: #### 5 7021-8 ####[facility] LABORATORYCLIA [id number] [address] [place] Monocytes/100 WBC (Bld) 11.4 % Normal [facility] Comment on above: Order Comment: Speci men Type: BLOOD SPECIMENOrdering Facility: [facility] Address: [address] [place] [address] Performed By: #### 5 7021-8 ####[facility]ORATORYCLIA [id number] [place] [address] [place] Neutrophils (Bld) [#/Vol] 3.67 10*3/uL Normal 1.45-7.50 [facility] Comment on above: Order Comment: Speci men Type: BLOOD SPECIMENOrdering Facility: [facility] Address: [address] [place] [address] Performed By: #### 5 7021-8 ####[facility]ATORYCLIA [id number] [address] [place] Neutrophils/100 WBC (Bld) 61.4 % Normal [facility] Comment on above: Order Comment: Speci men Type: BLOOD SPECIMENOrdering Facility: [facility] Address: [address] [place] [address] Performed By: #### 5 7021-8 ####[facility]ORYCLIA [id number] [address] OF [facility] Nucleated RBC (Bld) [#/Vol] 10*3/uL Normal <0.01 [facility] Comment on above: Order Comment: Speci men Type: BLOOD SPECIMENOrdering Facility: [facility] Address: [address] [place] [address] Performed By: #### 5 7021-8 ####[facility]ORATORYCLIA [id number] [address] [place] Nucleated RBC/100 WBC (Bld) [Ratio] 0.0 /100 WBC Normal [facility] Comment on above: Order Comment: Speci men Type: BLOOD SPECIMENOrdering Facility: [facility] Address: [address] [place] [address] Performed By: #### 5 7021-8 ####[facility]ORATORYCLIA [id number] [address] [place] Platelet mean volume (Bld) [Entitic vol] 11.0 fL Normal 9.0-12.7 [facility] Comment on above: Order Comment: Speci men Type: BLOOD SPECIMENOrdering Facility: [facility] Address: [address] [place] [address] Performed By: #### 5 7021-8 ####[facility]ORATORYCLIA [id number] [address] [place] Platelets (Bld) [#/Vol] 218 10*3/uL Normal 150-400 [facility] Comment on above: Order Comment: Speci men Type: BLOOD SPECIMENOrdering Facility: [facility] Address: [address] [place] [address] Performed By: #### 5 7021-8 ####[facility]ORATORYCLIA [id number] [address] [place] RBC (Bld) [#/Vol] 3.21 10*6/uL Low 3.90-5.20 [facility] Comment on above: Order Comment: Speci men Type: BLOOD SPECIMENOrdering Facility: [facility] Address: [address] [address] Performed By: #### 5 7021-8 ####[facility]ORATORYCLIA [id number] [address] [place] WBC (Bld) [#/Vol] 5.98 10*3/uL Normal 3.70-11.00 [facility] Comment on above: Order Comment: Speci men Type: BLOOD SPECIMENOrdering Facility: [facility] Address: [address] [address] Performed By: #### 5 7021-8 ####[facility]ORATORYCLIA [id number] [address] OF [facility] CONSULT PROGon 01-04-2023 CONSULT PROG Normal [facility] Comprehensive metabolic 2000 panelon 01-04-2023 Albumin [Mass/Vol] 3.2 g/dL Low 3.9-4.9 [facility] Comment on above: Order Comment: Speci men Type: BLOOD SPECIMENOrdering Facility: [facility] Address: [address] [address] Performed By: #### 2 4323-8 ####[facility]ORATORYCLIA [id number] [address] [place] ALP [Catalytic activity/Vol] 97 U/L Normal 34-123 [facility] Comment on above: Order Comment: Speci men Type: BLOOD SPECIMENOrdering Facility: [facility] Address: [address] [address] Performed By: #### 2 4323-8 ####[facility]ORATORYCLIA [id number] [address] [place] ALT With P-5'-P [Catalytic activity/Vol] 15 U/L Normal 7-38 [facility] Comment on above: Order Comment: Speci men Type: BLOOD SPECIMENOrdering Facility: [facility] Address: [address] [address] Performed By: #### 2 4323-8 ####[facility]ORATORYCLIA [id number] [address] [place] Anion gap [Moles/Vol] 12 mmol/L Normal 9-18 [facility] Comment on above: Order Comment: Speci men Type: BLOOD SPECIMENOrdering Facility: [facility] Address: [address] [place] [address] Performed By: #### 2 4323-8 ####[facility]ATORYCLIA [id number] [address] [place] AST With P-5'-P [Catalytic activity/Vol] 33 U/L Normal 13-35 [facility] Comment on above: Order Comment: Speci men Type: BLOOD SPECIMENOrdering Facility: [facility] Address: [address] [place] [address] Performed By: #### 2 4323-8 ####[facility]ATORYCLIA [id number] [address] [place] Bilirubin [Mass/Vol] 0.2 mg/dL Normal 0.2-1.3 [facility] Comment on above: Order Comment: Speci men Type: BLOOD SPECIMENOrdering Facility: [facility] Address: [address] [place] [address] Performed By: #### 2 4323-8 ####[facility]ATORYCLIA [id number] [address] STATES OF [facility] Calcium [Mass/Vol] 9.8 mg/dL Normal 8.5-10.2 [facility] Comment on above: Order Comment: Speci men Type: BLOOD SPECIMENOrdering Facility: [facility] Address: [address] [place] [address] Performed By: #### 2 4323-8 ####[facility]ATORYCLIA [id number] [address] [place] Chloride [Moles/Vol] 104 mmol/L Normal 97-105 [facility] Comment on above: Order Comment: Speci men Type: BLOOD SPECIMENOrdering Facility: [facility] Address: [address] [place] [address] Performed By: #### 2 4323-8 ####[facility]ATORYCLIA [id number] [address] CO2 [Moles/Vol] 21 mmol/L Low 22-30 [facility] Comment on above: Order Comment: Speci men Type: BLOOD SPECIMENOrdering Facility: [facility] Address: [address] [place] [address] Performed By: #### 2 4323-8 ####[facility]ITALCLIA [id number] [address] Creatinine [Mass/Vol] 0.54 mg/dL Low 0.58-0.96 [facility] Comment on above: Order Comment: Speci men Type: BLOOD SPECIMENOrdering Facility: [facility] Address: [address] [place] [address] Performed By: #### 2 4323-8 ####[facility] HOSPITALIA [id number] [address] ESTIMATED GLOMERULAR FILTRATION RATE 99 mL/min/1.73m??? Normal >=60 [facility] Comment on above: Order Comment: Speci men Type: BLOOD SPECIMENOrdering Facility: [facility] Address: [address] [place] [address] Result Comment: Mariely mated Glomerular Filtration Rate (eGFR) is calculated using the 2020 CKD-EPI creatinine equation. This equation utilizes serum creatinine, sex, and age as parameters. The creatinine assay has traceable calibration to isotope dilution-mass spectrometry. Refer to KDIGO guidelines for clinical interpretation. In patients with unstable renal function, e.g. those with acute kidney injury, the eGFR may not accurately reflect actual GFR. Performed By: #### 2 4323-8 ####[facility]ATORYCLIA [id number] [address] Glucose [Mass/Vol] 94 mg/dL Normal 74-99 [facility] Comment on above: Order Comment: Speci men Type: BLOOD SPECIMENOrdering Facility: [facility] Address: [address] [place] [address] Result Comment: The [place] [employer] (ADA) provides guidance for cutoff values for fasting glucose and random glucose. The ADA defines fasting as no caloric intake for at least 8 hours. Fasting plasma glucose results between 100 to 125 mg/dL indicate increased risk for diabetes (prediabetes).Fasting plasma glucose results greater than or equal to 126 mg/dL meet the criteria for diagnosis of diabetes. In the absence of unequivocal hyperglycemia, results should be confirmed by repeat testing. In a patient with classic symptoms of hyperglycemia or hyperglycemic crisis, random plasma glucose results greater than or equal to 200 mg/dL meet the criteria for diagnosis of diabetes.Reference: Standards of Medical Care in Diabetes 2016, [place] [employer]. Diabetes Care. 2016.39(Suppl 1). Performed By: #### 2 4323-8 ####[facility]ORATORYCLIA [id number] [place] [address] [place] Potassium [Moles/Vol] 4.1 mmol/L Normal 3.7-5.1 [facility] Comment on above: Order Comment: Speci men Type: BLOOD SPECIMENOrdering Facility: [facility] Address: [address] [address] Performed By: #### 2 4323-8 ####[facility]ATORYCLIA [id number] [place] [address] [place] Protein [Mass/Vol] 6.6 g/dL Normal 6.3-8.0 [facility] Comment on above: Order Comment: Speci men Type: BLOOD SPECIMENOrdering Facility: [facility] Address: [address] [place] [address] Performed By: #### 2 4323-8 ####[facility]ATORYCLIA [id number] [place] [address] [place] Sodium [Moles/Vol] 137 mmol/L Normal 136-144 [facility] Comment on above: Order Comment: Speci men Type: BLOOD SPECIMENOrdering Facility: [facility] Address: [address] [address] Performed By: #### 2 4323-8 ####[facility]ATORYCLIA [id number] [place] [address] [place] Urea nitrogen [Mass/Vol] 18 mg/dL Normal 7-21 [facility] Comment on above: Order Comment: Speci men Type: BLOOD SPECIMENOrdering Facility: [facility] Address: [address] [address] Performed By: #### 2 4323-8 ####[facility]ATORYCLIA [id number] [place] [address] [place] NUTRITIONon 01-04-2023 NUTRITION Normal [facility] THERAPY NTon 01-04-2023 THERAPY NT Normal [facility] THERAPY NT Normal [facility] THERAPY NT Normal [facility] THERAPY NT Normal [facility] THERAPY NT Normal [facility] CONSULT PROGon 01-03-2023 CONSULT PROG Normal [facility] ALLIED HEALTHon 01-02-2023 ALLIED HEALTH Normal [facility] Basic metabolic 2000 panelon 01-02-2023 Anion gap [Moles/Vol] 11 mmol/L Normal 9-18 [facility] Comment on above: Order Comment: Speci men Type: BLOOD SPECIMENOrdering Facility: [facility] Address: [address] [place] [address] Performed By: #### 2 777-1, , 99929-0 ####[facility]ATORYCLIA [id number] [place] [address] [place] Calcium [Mass/Vol] 9.4 mg/dL Normal 8.5-10.2 [facility] Comment on above: Order Comment: Speci men Type: BLOOD SPECIMENOrdering Facility: [facility] Address: [address] [address] Performed By: #### 2 777-1, , 04750-1 ####[facility]ATORYCLIA [id number] [place] [address] [place] Chloride [Moles/Vol] 103 mmol/L Normal 97-105 [facility] Comment on above: Order Comment: Speci men Type: BLOOD SPECIMENOrdering Facility: [facility] Address: [address] [place] [address] Performed By: #### 2 777-1, , ####[facility]ORATORYCLIA [id number] [place] [address] [place] [facility] CO2 [Moles/Vol] 23 mmol/L Normal 22-30 [facility] Comment on above: Order Comment: Speci men Type: BLOOD SPECIMENOrdering Facility: [facility] Address: [address] [place] [address] Performed By: #### 2 777-1, , ####[facility]ATORYCLIA [id number] [place] [id number] [place] [facility] Creatinine [Mass/Vol] 0.45 mg/dL Low 0.58-0.96 [facility] Comment on above: Order Comment: Speci men Type: BLOOD SPECIMENOrdering Facility: [facility] Address: [address] [place] [address] Performed By: #### 2 777-1, , ####[facility]ATORYCLIA [id number] [address] OF [facility] ESTIMATED GLOMERULAR FILTRATION RATE 103 mL/min/1.73m??? Normal >=60 [facility] Comment on above: Order Comment: Speci men Type: BLOOD SPECIMENOrdering Facility: [facility] Address: [address] [place] [address] Result Comment: Mariely mated Glomerular Filtration Rate (eGFR) is calculated using the 2020 CKD-EPI creatinine equation. This equation utilizes serum creatinine, sex, and age as parameters. The creatinine assay has traceable calibration to isotope dilution-mass spectrometry. Refer to KDIGO guidelines for clinical interpretation. In patients with unstable renal function, e.g. those with acute kidney injury, the eGFR may not accurately reflect actual GFR. Performed By: #### 2 777-1, , ####[facility]ATORYCLIA [id number] [place] [address] [place] Glucose [Mass/Vol] 110 mg/dL High 74-99 [facility] Comment on above: Order Comment: Rejicy lujan Type: BLOOD SPECIMENOrdering Facility: [facility] Address: [address] [place] [address] Result Comment: The [place] Diabetes [employer] (ADA) provides guidance for cutoff values for fasting glucose and random glucose. The ADA defines fasting as no caloric intake for at least 8 hours. Fasting plasma glucose results between 100 to 125 mg/dL indicate increased risk for diabetes (prediabetes).Fasting plasma glucose results greater than or equal to 126 mg/dL meet the criteria for diagnosis of diabetes. In the absence of unequivocal hyperglycemia, results should be confirmed by repeat testing. In a patient with classic symptoms of hyperglycemia or hyperglycemic crisis, random plasma glucose results greater than or equal to 200 mg/dL meet the criteria for diagnosis of diabetes.Reference: Standards of Medical Care in Diabetes 2016, [place] [employer]. Diabetes Care. 2016.39(Suppl 1). Performed By: #### 2 777-1, , 01112-8 ####[facility]ATORYCLIA [id number] [place] [address] [place] Potassium [Moles/Vol] 4.3 mmol/L Normal 3.7-5.1 [facility] Comment on above: Order Comment: Cary tai Type: BLOOD SPECIMENOrdering Facility: [facility] Address: [address] [place] [address] Performed By: #### 2 777-1, , 59622-6 ####[facility]ATORYCLIA [id number] [place] [address] [place] Sodium [Moles/Vol] 137 mmol/L Normal 136-144 [facility] Comment on above: Order Comment: Rejicy lujan Type: BLOOD SPECIMENOrdering Facility: [facility] Address: [address] [place] [address] Performed By: #### 2 777-1, , 71983-7 ####[facility]ATORYCLIA [id number] [place] [address] [place] Urea nitrogen [Mass/Vol] 13 mg/dL Normal 7-21 [facility] Comment on above: Order Comment: Speci men Type: BLOOD SPECIMENOrdering Facility: [facility] Address: [address] [place] [address] Performed By: #### 2 777-1, 51665-3, 79551-6 ####[facility]ATORYCLIA [id number] [address] [place] CASE MANAGEMon 01-02-2023 CASE MANAGEM Normal [facility] CBC panel Auto (Bld)on 01-02 Erythrocyte distribution width (RBC) [Ratio] 14.9 % Normal 11.5-15.0 [facility] Comment on above: Order Comment: Speci men Type: BLOOD SPECIMENOrdering Facility: [facility] Address: [address] [place] [address] Performed By: #### 5 8410-2 ####[facility]ATORYCLIA [id number] [address] [place] Hematocrit (Bld) [Volume fraction] 31.3 % Low 36.0-46.0 [facility] Comment on above: Order Comment: Speci men Type: BLOOD SPECIMENOrdering Facility: [facility] Address: [address] [place] [address] Performed By: #### 5 8410-2 ####[facility]ORYCLIA [id number] [address] [place] Hemoglobin (Bld) [Mass/Vol] 9.7 g/dL Low 11.5-15.5 [facility] Comment on above: Order Comment: Speci men Type: BLOOD SPECIMENOrdering Facility: [facility] Address: [address] [place] [address] Performed By: #### 5 8410-2 ####[facility]ATORYCLIA [id number] [address] [place] MCH (RBC) [Entitic mass] 31.7 pg Normal 26.0-34.0 [facility] Comment on above: Order Comment: Speci men Type: BLOOD SPECIMENOrdering Facility: [facility] Address: [address] [address] Performed By: #### 5 8410-2 ####[facility]ATORYCLIA [id number] [address] MCHC (RBC) [Mass/Vol] 31.0 g/dL Normal 30.5-36.0 [facility] Comment on above: Order Comment: Speci men Type: BLOOD SPECIMENOrdering Facility: [facility] Address: [address] [address] Performed By: #### 5 8410-2 ####[facility]ATORYCLIA [id number] [address] MCV (RBC) [Entitic vol] 102.3 fL High 80.0-100.0 [facility] Comment on above: Order Comment: Speci men Type: BLOOD SPECIMENOrdering Facility: [facility] Address: [address] [address] Performed By: #### 5 8410-2 ####[facility]ATORYCLIA [id number] [address] Nucleated RBC (Bld) [#/Vol] 10*3/uL Normal <0.01 [facility] Comment on above: Order Comment: Speci men Type: BLOOD SPECIMENOrdering Facility: [facility] Address: [address] [address] Performed By: #### 5 8410-2 ####[facility]ORYCLIA [id number] [address] Platelet mean volume (Bld) [Entitic vol] 10.8 fL Normal 9.0-12.7 [facility] Comment on above: Order Comment: Speci men Type: BLOOD SPECIMENOrdering Facility: [facility] Address: [address] [address] Performed By: #### 5 8410-2 ####[facility]ORYCLIA [id number] [address] Platelets (Bld) [#/Vol] 251 10*3/uL Normal 150-400 [facility] Comment on above: Order Comment: Speci men Type: BLOOD SPECIMENOrdering Facility: [facility] Address: [address] [place] [address] Performed By: #### 5 8410-2 ####[facility]ATORYCLIA [id number] [place] [address] [place] RBC (Bld) [#/Vol] 3.06 10*6/uL Low 3.90-5.20 [facility] Comment on above: Order Comment: Speci men Type: BLOOD SPECIMENOrdering Facility: [facility] Address: [address] [place] [address] Performed By: #### 5 8410-2 ####[facility]ATORYCLIA [id number] [address] [place] WBC (Bld) [#/Vol] 8.14 10*3/uL Normal 3.70-11.00 [facility] Comment on above: Order Comment: Speci men Type: BLOOD SPECIMENOrdering Facility: [facility] Address: [address] [place] [address] Performed By: #### 5 8410-2 ####[facility]ATORYCLIA [id number] [address] [place] CONSULT PROGon 01-02-2023 CONSULT PROG Normal [facility] Magnesium SerPl-mCncon 01-02 Magnesium [Mass/Vol] 1.6 mg/dL Low 1.7-2.3 [facility] Comment on above: Order Comment: Speci men Type: BLOOD SPECIMENOrdering Facility: [facility] Address: [address] [place] [address] Performed By: #### 2 777-1, 47750-6, 10803-5 ####[facility]ATORYCLIA [id number] [address] [place] Phosphate SerPl-mCncon 01-02 Phosphate [Mass/Vol] 3.5 mg/dL Normal 2.7-4.8 [facility] Comment on above: Order Comment: Speci men Type: BLOOD SPECIMENOrdering Facility: [facility] Address: [address] [address] Performed By: #### 2 777-1, , 58861-2 ####[facility]ATORYCLIA [id number] [place] [address] [place] Basic metabolic 2000 panelon 01-01-2023 Anion gap [Moles/Vol] 9 mmol/L Normal 9-18 [facility] Comment on above: Order Comment: Speci men Type: BLOOD SPECIMENOrdering Facility: [facility] Address: [address] [place] [address] Performed By: #### 2 4321-2, , 2776-10 ####[facility]ORATORYCLIA [id number] [place] [address] [place] Calcium [Mass/Vol] 9.1 mg/dL Normal 8.5-10.2 [facility] Comment on above: Order Comment: Speci men Type: BLOOD SPECIMENOrdering Facility: [facility] Address: [address] [place] [address] Performed By: #### 2 4321-2, , 2776-10 ####[facility]ATORYCLIA [id number] [place] [address] [place] Chloride [Moles/Vol] 104 mmol/L Normal 97-105 [facility] Comment on above: Order Comment: Speci men Type: BLOOD SPECIMENOrdering Facility: [facility] Address: [address] [address] Performed By: #### 2 4321-2, , 2776-10 ####[facility]ATORYCLIA [id number] [place] [address] [place] CO2 [Moles/Vol] 24 mmol/L Normal 22-30 [facility] Comment on above: Order Comment: Speci men Type: BLOOD SPECIMENOrdering Facility: [facility] Address: [address] [id number] Performed By: #### 2 4321-2, 54910-0, 2776-10 ####[facility]CLIA [id number] [address] STATES OF [facility] Creatinine [Mass/Vol] 0.47 mg/dL Low 0.58-0.96 [facility] Comment on above: Order Comment: Speci men Type: BLOOD SPECIMENOrdering Facility: [facility] Address: [address] Performed By: #### 2 4321-2, , 2776-10 ####[facility]ITALCLIA [id number] [address] ESTIMATED GLOMERULAR FILTRATION RATE 102 mL/min/1.73m??? Normal >=60 [facility] Comment on above: Order Comment: Speccy lujan Type: BLOOD SPECIMENOrdering Facility: [facility] Address: [address] [place] [address] Result Comment: Mariely mated Glomerular Filtration Rate (eGFR) is calculated using the 2020 CKD-EPI creatinine equation. This equation utilizes serum creatinine, sex, and age as parameters. The creatinine assay has traceable calibration to isotope dilution-mass spectrometry. Refer to KDIGO guidelines for clinical interpretation. In patients with unstable renal function, e.g. those with acute kidney injury, the eGFR may not accurately reflect actual GFR. Performed By: #### 2 4321-2, , 2776-10 ####[facility]ATORYCLIA [id number] [address] STATES OF [facility] Glucose [Mass/Vol] 131 mg/dL High 74-99 [facility] Comment on above: Order Comment: Speci men Type: BLOOD SPECIMENOrdering Facility: [facility] Address: [address] Result Comment: The [place] [employer] (ADA) provides guidance for cutoff values for fasting glucose and random glucose. The ADA defines fasting as no caloric intake for at least 8 hours. Fasting plasma glucose results between 100 to 125 mg/dL indicate increased risk for diabetes (prediabetes).Fasting plasma glucose results greater than or equal to 126 mg/dL meet the criteria for diagnosis of diabetes. In the absence of unequivocal hyperglycemia, results should be confirmed by repeat testing. In a patient with classic symptoms of hyperglycemia or hyperglycemic crisis, random plasma glucose results greater than or equal to 200 mg/dL meet the criteria for diagnosis of diabetes.Reference: Standards of Medical Care in Diabetes 2016, [place] [employer]. Diabetes Care. 2016.39(Suppl 1). Performed By: #### 2 4321-2, , 2776-10 ####[facility] LABORATORYCLIA [id number] [place] [address] [place] Potassium [Moles/Vol] 4.0 mmol/L Normal 3.7-5.1 [facility] Comment on above: Order Comment: Cary lujan Type: BLOOD SPECIMENOrdering Facility: [facility] Address: [address] [place] [address] Performed By: #### 2 4322, , 2776-10 ####[facility]ITALCLIA [id number] [place] [address] [place] Sodium [Moles/Vol] 137 mmol/L Normal 136-144 [facility] Comment on above: Order Comment: Cary lujan Type: BLOOD SPECIMENOrdering Facility: [facility] Address: [address] [place] [address] Performed By: #### 2 432-2, , 2776-10 ####[facility] LABORATORYCLIA [id number] [place] [address] [place] Urea nitrogen [Mass/Vol] 16 mg/dL Normal 7-21 [facility] Comment on above: Order Comment: Rejii tai Type: BLOOD SPECIMENOrdering Facility: [facility] Address: [address] [place] [address] Performed By: #### 2 4320-2, , 2776-10 ####[facility] LABORATORYCLIA [id number] [place] [address] [place] CBC panel Auto (Bld)on 03-21 -2023 Erythrocyte distribution width (RBC) [Ratio] 15.1 % High 11.5-15.0 [facility] Comment on above: Order Comment: Speci men Type: BLOOD SPECIMENOrdering Facility: [facility] Address: [address] [place] [address] Performed By: #### 5 8410-2 ####[facility] LABORATORYCLIA [id number] [address] OF [facility] Hematocrit (Bld) [Volume fraction] 30.0 % Low 36.0-46.0 [facility] Comment on above: Order Comment: Speci men Type: BLOOD SPECIMENOrdering Facility: [facility] Address: [address] [place] [address] Performed By: #### 5 8410-2 ####[facility] LABORATORYCLIA [id number] [address] STATES OF [facility] Hemoglobin (Bld) [Mass/Vol] 9.5 g/dL Low 11.5-15.5 [facility] Comment on above: Order Comment: Speci men Type: BLOOD SPECIMENOrdering Facility: [facility] Address: [address] [place] [address] Performed By: #### 5 8410-2 ####[facility] LABORATORYCLIA [id number] [address] STATES OF [facility] MCH (RBC) [Entitic mass] 32.2 pg Normal 26.0-34.0 [facility] Comment on above: Order Comment: Speci men Type: BLOOD SPECIMENOrdering Facility: [facility] Address: [address] [place] [address] Performed By: #### 5 8410-2 ####[facility]ORATORYCLIA [id number] [address] [place] MCHC (RBC) [Mass/Vol] 31.7 g/dL Normal 30.5-36.0 [facility] Comment on above: Order Comment: Speci men Type: BLOOD SPECIMENOrdering Facility: [facility] Address: [address] [place] [address] Performed By: #### 5 8410-2 ####[facility] LABORATORYCLIA [id number] [address] STATES [facility] MCV (RBC) [Entitic vol] 101.7 fL High 80.0-100.0 [facility] Comment on above: Order Comment: Speci men Type: BLOOD SPECIMENOrdering Facility: [facility] Address: [address] [place] [address] Performed By: #### 5 8410-2 ####[facility] LABORATORYCLIA [id number] [address] OF [place] Nucleated RBC (Bld) [#/Vol] 10*3/uL Normal <0.01 [facility] Comment on above: Order Comment: Speci men Type: BLOOD SPECIMENOrdering Facility: [facility] Address: [address] [place] [address] Performed By: #### 5 8410-2 ####[facility] LABORATORYCLIA [id number] [address] Platelet mean volume (Bld) [Entitic vol] 10.4 fL Normal 9.0-12.7 [facility] Comment on above: Order Comment: Speci men Type: BLOOD SPECIMENOrdering Facility: [facility] Address: [address] [place] [address] Performed By: #### 5 8410-2 ####[facility] LABORATORYCLIA [id number] [address] [place] Platelets (Bld) [#/Vol] 266 10*3/uL Normal 150-400 [facility] Comment on above: Order Comment: Speci men Type: BLOOD SPECIMENOrdering Facility: [facility] Address: [address] [place] [address] Performed By: #### 5 8410-2 ####[facility] LABORATORYCLIA [id number] [address] [place] RBC (Bld) [#/Vol] 2.95 10*6/uL Low 3.90-5.20 [facility] Comment on above: Order Comment: Speci men Type: BLOOD SPECIMENOrdering Facility: [facility] Address: [address] [place] [address] Performed By: #### 5 8410-2 ####[facility] LABORATORYCLIA [id number] [address] [place] WBC (Bld) [#/Vol] 7.31 10*3/uL Normal 3.70-11.00 [facility] Comment on above: Order Comment: Speci men Type: BLOOD SPECIMENOrdering Facility: [facility] Address: [address] [place] [address] Performed By: #### 5 8410-2 ####[facility] LABORATORYCLIA [id number] [address] CONSULTon 01-01-2023 CONSULT Normal [facility] Magnesium SerPl-mCncon 01-01 Magnesium [Mass/Vol] 1.8 mg/dL Normal 1.7-2.3 [facility] Comment on above: Order Comment: Speci men Type: BLOOD SPECIMENOrdering Facility: [facility] Address: [address] [place] [address] Performed By: #### 2 4321-2, , 2776-10 ####[facility]ORATORYCLIA [id number] [address] [place] NURSING PROGon 01-01-2023 NURSING PROG Normal [facility] Phosphate SerPl-mCncon 01-01 Phosphate [Mass/Vol] 4.6 mg/dL Normal 2.7-4.8 [facility] Comment on above: Order Comment: Speci men Type: BLOOD SPECIMENOrdering Facility: [facility] Address: [address] [place] [address] Performed By: #### 2 4321-2, , 2776-10 ####[facility]ORATORYCLIA [id number] [address] [place] Bacteria Spec Resp Culton Bacteria identified Respiratory culture Nom (Unsp spec) CULTURE, RESPIRATORY: Few Normal respiratory jorge present GRAM STAIN: Rare Gram positive cocci Rare Polymorphonuclear leukocytes Rare Epithelial cells Abnormal [facility] Comment on above: Performed By: #### 3 2355-0 ####[facility]ATORYCLIA [id number] [place] [address] [place] Basic metabolic 2000 panelon 12-31-2022 Anion gap [Moles/Vol] 9 mmol/L Normal 9-18 [facility] Comment on above: Order Comment: Speci men Type: BLOOD SPECIMENOrdering Facility: [facility] Address: [address] [address] Performed By: #### 1 9123-9, 2777-1, 42007-7 ####[facility]ORATORYCLIA [id number] [place] [address] [place] Calcium [Mass/Vol] 9.1 mg/dL Normal 8.5-10.2 [facility] Comment on above: Order Comment: Speci men Type: BLOOD SPECIMENOrdering Facility: [facility] Address: [address] [address] Performed By: #### 1 9123-9, 2777-, 77992-0 ####[facility]ATORYCLIA [id number] [place] [address] [place] Chloride [Moles/Vol] 106 mmol/L High 97-105 [facility] Comment on above: Order Comment: Speci men Type: BLOOD SPECIMENOrdering Facility: [facility] Address: [address] [address] Performed By: #### 1 9123-9, 2777-1, 41194-8 ####[facility]ATORYCLIA [id number] [place] [address] [place] CO2 [Moles/Vol] 23 mmol/L Normal 22-30 [facility] Comment on above: Order Comment: Speci men Type: BLOOD SPECIMENOrdering Facility: [facility] Address: [address] [address] Performed By: #### 1 9123-9, 2777-1, 38989-9 ####[facility]ITALCLIA [id number] [address] STATES OF [facility] Creatinine [Mass/Vol] 0.45 mg/dL Low 0.58-0.96 [facility] Comment on above: Order Comment: Speccy lujan Type: BLOOD SPECIMENOrdering Facility: [facility] Address: [address] [address] Performed By: #### 1 9123-9, 2777-, 33616-0 ####[facility]ITALCLIA [id number] [address] ESTIMATED GLOMERULAR FILTRATION RATE 103 mL/min/1.73m??? Normal >=60 [facility] Comment on above: Order Comment: Cary lujan Type: BLOOD SPECIMENOrdering Facility: [facility] Address: [address] [place] [address] Result Comment: Mariely mated Glomerular Filtration Rate (eGFR) is calculated using the 2020 CKD-EPI creatinine equation. This equation utilizes serum creatinine, sex, and age as parameters. The creatinine assay has traceable calibration to isotope dilution-mass spectrometry. Refer to KDIGO guidelines for clinical interpretation. In patients with unstable renal function, e.g. those with acute kidney injury, the eGFR may not accurately reflect actual GFR. Performed By: #### 1 9123-9, 2777-1, 08486-9 ####[facility]ATORYCLIA [id number] [address] [place] Glucose [Mass/Vol] 124 mg/dL High 74-99 [facility] Comment on above: Order Comment: Speci tai Type: BLOOD SPECIMENOrdering Facility: [facility] Address: [address] [place] [address] Result Comment: The [place] Diabetes Association (ADA) provides guidance for cutoff values for fasting glucose and random glucose. The ADA defines fasting as no caloric intake for at least 8 hours. Fasting plasma glucose results between 100 to 125 mg/dL indicate increased risk for diabetes (prediabetes).Fasting plasma glucose results greater than or equal to 126 mg/dL meet the criteria for diagnosis of diabetes. In the absence of unequivocal hyperglycemia, results should be confirmed by repeat testing. In a patient with classic symptoms of hyperglycemia or hyperglycemic crisis, random plasma glucose results greater than or equal to 200 mg/dL meet the criteria for diagnosis of diabetes.Reference: Standards of Medical Care in Diabetes 2016, [place] [employer]. Diabetes Care. 2016.39(Suppl 1). Performed By: #### 1 9123-9, 2777-1, 22990-1 ####[facility]ORATORYCLIA [id number] [place] [address] [place] Potassium [Moles/Vol] 4.4 mmol/L Normal 3.7-5.1 [facility] Comment on above: Order Comment: Cary lujan Type: BLOOD SPECIMENOrdering Facility: [facility] Address: [address] [place] [address] Performed By: #### 1 9123-9, 2777-, 03314-1 ####[facility]ITALCLIA [id number] [address] STATES OF [facility] Sodium [Moles/Vol] 138 mmol/L Normal 136-144 [facility] Comment on above: Order Comment: Cary lujan Type: BLOOD SPECIMENOrdering Facility: [facility] Address: [address] [place] [address] Performed By: #### 1 9123-9, 2777-1, 26393-9 ####[facility]ATORYCLIA [id number] [address] [place] Urea nitrogen [Mass/Vol] 11 mg/dL Normal 7-21 [facility] Comment on above: Order Comment: Cary lujan Type: BLOOD SPECIMENOrdering Facility: [facility] Address: [address] [place] [address] Performed By: #### 1 9123-9, 2777, 22892-2 ####[facility]ATORYCLIA [id number] [address] [place] CASE MANAGEMon 12-31-2022 CASE MANAGEM Normal [facility] CBC panel Auto (Bld)on 12-31 Erythrocyte distribution width (RBC) [Ratio] 14.6 % Normal 11.5-15.0 [facility] Comment on above: Order Comment: Speci men Type: BLOOD SPECIMENOrdering Facility: [facility] Address: [address] [place] [address] Performed By: #### 5 8410-2 ####[facility]ORATORYCLIA [id number] [address] OF [facility] Hematocrit (Bld) [Volume fraction] 29.2 % Low 36.0-46.0 [facility] Comment on above: Order Comment: Speci men Type: BLOOD SPECIMENOrdering Facility: [facility] Address: [address] [place] [address] Performed By: #### 5 8410-2 ####[facility]ATORYCLIA [id number] [address] [place] Hemoglobin (Bld) [Mass/Vol] 9.4 g/dL Low 11.5-15.5 [facility] Comment on above: Order Comment: Speci men Type: BLOOD SPECIMENOrdering Facility: [facility] Address: [address] [place] [address] Performed By: #### 5 8410-2 ####[facility]ORATORYCLIA [id number] [address] [place] MCH (RBC) [Entitic mass] 32.4 pg Normal 26.0-34.0 [facility] Comment on above: Order Comment: Speci men Type: BLOOD SPECIMENOrdering Facility: [facility] Address: [address] [place] [address] Performed By: #### 5 8410-2 ####[facility]ORATORYCLIA [id number] [address] [place] MCHC (RBC) [Mass/Vol] 32.2 g/dL Normal 30.5-36.0 [facility] Comment on above: Order Comment: Speci men Type: BLOOD SPECIMENOrdering Facility: [facility] Address: [address] [place] [address] Performed By: #### 5 8410-2 ####[facility]ORATORYCLIA [id number] [address] MCV (RBC) [Entitic vol] 100.7 fL High 80.0-100.0 [facility] Comment on above: Order Comment: Speci men Type: BLOOD SPECIMENOrdering Facility: [facility] Address: [address] [place] [address] Performed By: #### 5 8410-2 ####[facility] LABORATORYCLIA [id number] [address] [place] Nucleated RBC (Bld) [#/Vol] 10*3/uL Normal <0.01 [facility] Comment on above: Order Comment: Speci men Type: BLOOD SPECIMENOrdering Facility: [facility] Address: [address] [place] [address] Performed By: #### 5 8410-2 ####[facility] LABORATORYCLIA [id number] [address] Platelet mean volume (Bld) [Entitic vol] 10.9 fL Normal 9.0-12.7 [facility] Comment on above: Order Comment: Speci men Type: BLOOD SPECIMENOrdering Facility: [facility] Address: [address] [place] [address] Performed By: #### 5 8410-2 ####[facility]ORATORYCLIA [id number] [address] Platelets (Bld) [#/Vol] 292 10*3/uL Normal 150-400 [facility] Comment on above: Order Comment: Speci men Type: BLOOD SPECIMENOrdering Facility: [facility] Address: [address] [place] [address] Performed By: #### 5 8410-2 ####[facility] LABORATORYCLIA [id number] [address] [place] RBC (Bld) [#/Vol] 2.90 10*6/uL Low 3.90-5.20 [facility] Comment on above: Order Comment: Speci men Type: BLOOD SPECIMENOrdering Facility: [facility] Address: [address] [place] [address] Performed By: #### 5 8410-2 ####[facility]ORATORYCLIA [id number] [address] [place] WBC (Bld) [#/Vol] 9.08 10*3/uL Normal 3.70-11.00 [facility] Comment on above: Order Comment: Speci men Type: BLOOD SPECIMENOrdering Facility: [facility] Address: [address] [place] [address] Performed By: #### 5 8410-2 ####[facility] LABORATORYCLIA [id number] [address] [place] CONSULTon 12-31-2022 CONSULT Normal [facility] CONSULT Normal [facility] Magnesium SerPl-Chan [facility]31 Magnesium [Mass/Vol] 1.5 mg/dL Low 1.7-2.3 [facility] Comment on above: Order Comment: Speci men Type: BLOOD SPECIMENOrdering Facility: [facility] Address: [address] [place] [address] Performed By: #### 1 9123-9, 2777-1, 46119-5 ####[facility]ATORYCLIA [id number] [address] OF [place] NURSING PROGon 12-31-2022 NURSING PROG Normal [facility] NUTRITIONon 12-31-2022 NUTRITION Normal [facility] Phosphate SerPl-ncon 12-31 Phosphate [Mass/Vol] 3.9 mg/dL Normal 2.7-4.8 [facility] Comment on above: Order Comment: Speci men Type: BLOOD SPECIMENOrdering Facility: [facility] Address: [address] [place] [address] Performed By: #### 1 9123-9, 2777-1, 18271-0 ####[facility]ORATORYCLIA [id number] [place] [address] [place] ALLIED HEALTHon 12-30-2022 ALLIED HEALTH Normal [facility] Basic metabolic 2000 panelon 12-30-2022 Anion gap [Moles/Vol] 8 mmol/L Low 9-18 [facility] Comment on above: Order Comment: Speci men Type: BLOOD SPECIMENOrdering Facility: [facility] Address: [address] [place] [address] Performed By: #### 2 4321-2, , 2776-10 ####[facility] LABCLIA [id number] [place] [address] [place] Calcium [Mass/Vol] 9.2 mg/dL Normal 8.5-10.2 [facility] Comment on above: Order Comment: Speci men Type: BLOOD SPECIMENOrdering Facility: [facility] Address: [address] [place] [address] Performed By: #### 2 4320-2, , 2776-10 ####[facility] LABCLIA [id number] [place] [address] [place] Chloride [Moles/Vol] 103 mmol/L Normal 97-105 [facility] Comment on above: Order Comment: Speci men Type: BLOOD SPECIMENOrdering Facility: [facility] Address: [address] [place] [address] Performed By: #### 2 4321-2, , 2776-10 ####[facility] LABCLIA [id number] [place] [address] [place] CO2 [Moles/Vol] 26 mmol/L Normal 22-30 [facility] Comment on above: Order Comment: Speci men Type: BLOOD SPECIMENOrdering Facility: [facility] Address: [address] [place] [address] Performed By: #### 2 4321-2, , 2776-10 ####[facility] LABCLIA [id number] [place] [address] [place] Creatinine [Mass/Vol] 0.44 mg/dL Low 0.58-0.96 [facility] Comment on above: Order Comment: Cary lujan Type: BLOOD SPECIMENOrdering Facility: [facility] Address: [address] [id number] Performed By: #### 2 4321-2, 63340-4, 2776-10 ####[facility] LABCLIA [id number] [place] [address] [facility] ESTIMATED GLOMERULAR FILTRATION RATE 104 mL/min/1.73m??? Normal >=60 [facility] Comment on above: Order Comment: Cary lujan Type: BLOOD SPECIMENOrdering Facility: [facility] Address: [address] [place], [place] [id number] Result Comment: Mariely mated Glomerular Filtration Rate (eGFR) is calculated using the 2020 CKD-EPI creatinine equation. This equation utilizes serum creatinine, sex, and age as parameters. The creatinine assay has traceable calibration to isotope dilution-mass spectrometry. Refer to KDIGO guidelines for clinical interpretation. In patients with unstable renal function, e.g. those with acute kidney injury, the eGFR may not accurately reflect actual GFR. Performed By: #### 2 4321-2, , 2776-10 ####[facility] LABCLIA [id number] [place] [address] [facility] Glucose [Mass/Vol] 104 mg/dL High 74-99 [facility] Comment on above: Order Comment: Cary lujan Type: BLOOD SPECIMENOrdering Facility: [facility] Address: [address] [place], [place] [id number] Result Comment: The [place] Diabetes Association (ADA) provides guidance for cutoff values for fasting glucose and random glucose. The ADA defines fasting as no caloric intake for at least 8 hours. Fasting plasma glucose results between 100 to 125 mg/dL indicate increased risk for diabetes (prediabetes).Fasting plasma glucose results greater than or equal to 126 mg/dL meet the criteria for diagnosis of diabetes. In the absence of unequivocal hyperglycemia, results should be confirmed by repeat testing. In a patient with classic symptoms of hyperglycemia or hyperglycemic crisis, random plasma glucose results greater than or equal to 200 mg/dL meet the criteria for diagnosis of diabetes.Reference: Standards of Medical Care in Diabetes 2016, [place] [employer]. Diabetes Care. 2016.39(Suppl 1). Performed By: #### 2 4321-2, , 2776-10 ####[facility] LABCLIA [id number] [place] [address] [place] Potassium [Moles/Vol] 4.6 mmol/L Normal 3.7-5.1 [facility] Comment on above: Order Comment: Cary lujan Type: BLOOD SPECIMENOrdering Facility: [facility] Address: [address] [address] Performed By: #### 2 4321-2, , 2776-10 ####[facility] LABCLIA [id number] [place] [address] [place] Sodium [Moles/Vol] 137 mmol/L Normal 136-144 [facility] Comment on above: Order Comment: Cary lujan Type: BLOOD SPECIMENOrdering Facility: [facility] Address: [address] [address] Performed By: #### 2 4321-2, , 2776-10 ####[facility] LABCLIA [id number] [place] [address] [place] Urea nitrogen [Mass/Vol] 10 mg/dL Normal 7-21 [facility] Comment on above: Order Comment: Cary lujan Type: BLOOD SPECIMENOrdering Facility: [facility] Address: [address] [address] Performed By: #### 2 4321-2, , 2776-10 ####[facility] LABCLIA [id number] [place] [address] [place] CBC panel Auto (Bld)on 12-30 Erythrocyte distribution width (RBC) [Ratio] 14.8 % Normal 11.5-15.0 [facility] Comment on above: Order Comment: Cary lujan Type: BLOOD SPECIMENOrdering Facility: [facility] Address: [address] [place] [address] Performed By: #### 5 8410-2 ####[facility] LABORATORYCLIA [id number] [address] Hematocrit (Bld) [Volume fraction] 29.8 % Low 36.0-46.0 [facility] Comment on above: Order Comment: Speci men Type: BLOOD SPECIMENOrdering Facility: [facility] Address: [address] [place] [address] Performed By: #### 5 8410-2 ####[facility] LABORATORYCLIA [id number] [address] OF [facility] Hemoglobin (Bld) [Mass/Vol] 9.8 g/dL Low 11.5-15.5 [facility] Comment on above: Order Comment: Speci men Type: BLOOD SPECIMENOrdering Facility: [facility] Address: [address] [place] [address] Performed By: #### 5 8410-2 ####[facility] LABORATORYCLIA [id number] [address] STATES OF [facility] MCH (RBC) [Entitic mass] 32.8 pg Normal 26.0-34.0 [facility] Comment on above: Order Comment: Speci men Type: BLOOD SPECIMENOrdering Facility: [facility] Address: [address] [place] [address] Performed By: #### 5 8410-2 ####[facility]ORATORYCLIA [id number] [address] [place] MCHC (RBC) [Mass/Vol] 32.9 g/dL Normal 30.5-36.0 [facility] Comment on above: Order Comment: Speci men Type: BLOOD SPECIMENOrdering Facility: [facility] Address: [address] [place] [address] Performed By: #### 5 8410-2 ####[facility] LABORATORYCLIA [id number] [place] [address] [place] MCV (RBC) [Entitic vol] 99.7 fL Normal 80.0-100.0 [facility] Comment on above: Order Comment: Speci men Type: BLOOD SPECIMENOrdering Facility: [facility] Address: [address] [address] Performed By: #### 5 8410-2 ####[facility] LABORATORYCLIA [id number] [address] [place] Nucleated RBC (Bld) [#/Vol] 10*3/uL Normal <0.01 [facility] Comment on above: Order Comment: Speci men Type: BLOOD SPECIMENOrdering Facility: [facility] Address: [address] [address] Performed By: #### 5 8410-2 ####[facility] LABORATORYCLIA [id number] [address] [place] Platelet mean volume (Bld) [Entitic vol] 10.8 fL Normal 9.0-12.7 [facility] Comment on above: Order Comment: Speci men Type: BLOOD SPECIMENOrdering Facility: [facility] Address: [address] [address] Performed By: #### 5 8410-2 ####[facility] LABORATORYCLIA [id number] [address] [place] Platelets (Bld) [#/Vol] 321 10*3/uL Normal 150-400 [facility] Comment on above: Order Comment: Speci men Type: BLOOD SPECIMENOrdering Facility: [facility] Address: [address] [address] Performed By: #### 5 8410-2 ####[facility] LABORATORYCLIA [id number] [address] [place] RBC (Bld) [#/Vol] 2.99 10*6/uL Low 3.90-5.20 [facility] Comment on above: Order Comment: Speci men Type: BLOOD SPECIMENOrdering Facility: [facility] Address: [address] [address] Performed By: #### 5 8410-2 ####[facility] LABORATORYCLIA [id number] [place] [address] [place] [facility] WBC (Bld) [#/Vol] 11.02 10*3/uL High 3.70-11.00 [facility] Comment on above: Order Comment: Speci men Type: BLOOD SPECIMENOrdering Facility: [facility] Address: [address] [address] Performed By: #### 5 8410-2 ####[facility] LABORATORYCLIA [id number] [place] [id number] [facility] Magnesium SerPl-Chan [facility] 12-30 Magnesium [Mass/Vol] 1.7 mg/dL Normal 1.7-2.3 [facility] Comment on above: Order Comment: Speci men Type: BLOOD SPECIMENOrdering Facility: [facility] Address: [address] [place] [address] Performed By: #### 2 4321-2, , 2776-10 ####[facility] LABCLIA [id number] [place] [address] [facility] NURSING PROGon 12-30-2022 NURSING PROG Normal [facility] NURSING PROG Normal [facility] NURSING PROG Normal [facility] Phosphate SerPl-ncon 12-30 Phosphate [Mass/Vol] 4.5 mg/dL Normal 2.7-4.8 [facility] Comment on above: Order Comment: Speci men Type: BLOOD SPECIMENOrdering Facility: [facility] Address: [address] Performed By: #### 2 4321-2, , 277- ####[facility] LABCLIA [id number] [place] [address] [facility] [place] XR CHEST 1V FRONTALon 2022 XR CHEST 1V FRONTAL Normal [facility] ALLIED HEALTHon 12-29-2022 ALLIED HEALTH Normal [facility] Basic metabolic 2000 panelon 12-29-2022 Anion gap [Moles/Vol] 8 mmol/L Low 9-18 [facility] Comment on above: Order Comment: Speci men Type: BLOOD SPECIMENOrdering Facility: [facility] Address: [address] [place] [address] Performed By: #### 2 4321-2, , 2776-10 ####[facility]ORATORYCLIA [id number] [place] [address] [place] Calcium [Mass/Vol] 9.1 mg/dL Normal 8.5-10.2 [facility] Comment on above: Order Comment: Speci men Type: BLOOD SPECIMENOrdering Facility: [facility] Address: [address] [place] [address] Performed By: #### 2 4321-2, , 2776-10 ####[facility]ORATORYCLIA [id number] [place] [address] [place] Chloride [Moles/Vol] 106 mmol/L High 97-105 [facility] Comment on above: Order Comment: Speci men Type: BLOOD SPECIMENOrdering Facility: [facility] Address: [address] [place] [address] Performed By: #### 2 4321-2, , 2776-10 ####[facility]ORATORYCLIA [id number] [place] [address] [place] CO2 [Moles/Vol] 23 mmol/L Normal 22-30 [facility] Comment on above: Order Comment: Speci men Type: BLOOD SPECIMENOrdering Facility: [facility] Address: [address] [place] [address] Performed By: #### 2 4321-2, , 2776-10 ####[facility]ORATORYCLIA [id number] [place] [address] [place] Creatinine [Mass/Vol] 0.43 mg/dL Low 0.58-0.96 [facility] Comment on above: Order Comment: Speci men Type: BLOOD SPECIMENOrdering Facility: [facility] Address: [address] [address] Performed By: #### 2 4321-2, , 2776-10 ####[facility]ITALCLIA [id number] [address] [place] [id number] [place] ESTIMATED GLOMERULAR FILTRATION RATE 104 mL/min/1.73m??? Normal >=60 [facility] Comment on above: Order Comment: Rejicy tai Type: BLOOD SPECIMENOrdering Facility: [facility] Address: [address] [place] [address] Result Comment: Mariely mated Glomerular Filtration Rate (eGFR) is calculated using the 2020 CKD-EPI creatinine equation. This equation utilizes serum creatinine, sex, and age as parameters. The creatinine assay has traceable calibration to isotope dilution-mass spectrometry. Refer to KDIGO guidelines for clinical interpretation. In patients with unstable renal function, e.g. those with acute kidney injury, the eGFR may not accurately reflect actual GFR. Performed By: #### 2 4321-2, , 2776-10 ####[facility] LABORATORYCLIA [id number] [place] [address] [place] Glucose [Mass/Vol] 110 mg/dL High 74-99 [facility] Comment on above: Order Comment: Cary lujan Type: BLOOD SPECIMENOrdering Facility: [facility] Address: [address] [place] [address] Result Comment: The [place] [employer] (ADA) provides guidance for cutoff values for fasting glucose and random glucose. The ADA defines fasting as no caloric intake for at least 8 hours. Fasting plasma glucose results between 100 to 125 mg/dL indicate increased risk for diabetes (prediabetes).Fasting plasma glucose results greater than or equal to 126 mg/dL meet the criteria for diagnosis of diabetes. In the absence of unequivocal hyperglycemia, results should be confirmed by repeat testing. In a patient with classic symptoms of hyperglycemia or hyperglycemic crisis, random plasma glucose results greater than or equal to 200 mg/dL meet the criteria for diagnosis of diabetes.Reference: Standards of Medical Care in Diabetes 2016, [place] [employer]. Diabetes Care. 2016.39(Suppl 1). Performed By: #### 2 4321-2, , 2776-10 ####[facility] LABORATORYCLIA [id number] [place], [place] [address] [place] [address] [place] Potassium [Moles/Vol] 4.5 mmol/L Normal 3.7-5.1 [facility] Comment on above: Order Comment: Speci men Type: BLOOD SPECIMENOrdering Facility: [facility] Address: [address] [place] [address] Performed By: #### 2 4321-2, , 2776-10 ####[facility]ORATORYCLIA [id number] [address] STATES OF [facility] Sodium [Moles/Vol] 137 mmol/L Normal 136-144 [facility] Comment on above: Order Comment: Speci men Type: BLOOD SPECIMENOrdering Facility: [facility] Address: [address] [place] [address] Performed By: #### 2 432-2, , 2776-10 ####[facility]ORATORYCLIA [id number] [address] Urea nitrogen [Mass/Vol] 9 mg/dL Normal 7-21 [facility] Comment on above: Order Comment: Speci men Type: BLOOD SPECIMENOrdering Facility: [facility] Address: [address] [place] [address] Performed By: #### 2 4321-2, , 2776-10 ####[facility]ORATORYCLIA [id number] [address] CBC panel Auto (Bld)on 12-29 Erythrocyte distribution width (RBC) [Ratio] 14.7 % Normal 11.5-15.0 [facility] Comment on above: Order Comment: Speci men Type: BLOOD SPECIMENOrdering Facility: [facility] Address: [address] [place] [address] Performed By: #### 5 8410-2 ####[facility]ORATORYCLIA [id number] [address] Hematocrit (Bld) [Volume fraction] 30.4 % Low 36.0-46.0 [facility] Comment on above: Order Comment: Speci men Type: BLOOD SPECIMENOrdering Facility: [facility] Address: [address] [place] [address] Performed By: #### 5 8410-2 ####[facility]ORATORYCLIA [id number] [address] [place] Hemoglobin (Bld) [Mass/Vol] 9.5 g/dL Low 11.5-15.5 [facility] Comment on above: Order Comment: Speci men Type: BLOOD SPECIMENOrdering Facility: [facility] Address: [address] [place] [address] Performed By: #### 5 8410-2 ####[facility]ORATORYCLIA [id number] [address] [place] MCH (RBC) [Entitic mass] 31.9 pg Normal 26.0-34.0 [facility] Comment on above: Order Comment: Speci men Type: BLOOD SPECIMENOrdering Facility: [facility] Address: [address] [place] [address] Performed By: #### 5 8410-2 ####[facility]ORATORYCLIA [id number] [address] [place] MCHC (RBC) [Mass/Vol] 31.3 g/dL Normal 30.5-36.0 [facility] Comment on above: Order Comment: Speci men Type: BLOOD SPECIMENOrdering Facility: [facility] Address: [address] [place] [address] Performed By: #### 5 8410-2 ####[facility]ORATORYCLIA [id number] [address] [place] MCV (RBC) [Entitic vol] 102.0 fL High 80.0-100.0 [facility] Comment on above: Order Comment: Speci men Type: BLOOD SPECIMENOrdering Facility: [facility] Address: [address] [place] [address] Performed By: #### 5 8410-2 ####[facility]ORATORYCLIA [id number] [address] [place] Nucleated RBC (Bld) [#/Vol] 10*3/uL Normal <0.01 [facility] Comment on above: Order Comment: Speci men Type: BLOOD SPECIMENOrdering Facility: [facility] Address: [address] [place] [address] Performed By: #### 5 8410-2 ####[facility]ATORYCLIA [id number] [address] [place] Platelet mean volume (Bld) [Entitic vol] 10.8 fL Normal 9.0-12.7 [facility] Comment on above: Order Comment: Speci men Type: BLOOD SPECIMENOrdering Facility: [facility] Address: [address] [place] [address] Performed By: #### 5 8410-2 ####[facility]ORATORYCLIA [id number] [address] [place] Platelets (Bld) [#/Vol] 332 10*3/uL Normal 150-400 [facility] Comment on above: Order Comment: Speci men Type: BLOOD SPECIMENOrdering Facility: [facility] Address: [address] [place] [address] Performed By: #### 5 8410-2 ####[facility]ATORYCLIA [id number] [address] [place] RBC (Bld) [#/Vol] 2.98 10*6/uL Low 3.90-5.20 [facility] Comment on above: Order Comment: Speci men Type: BLOOD SPECIMENOrdering Facility: [facility] Address: [address] [place] [address] Performed By: #### 5 8410-2 ####[facility]ATORYCLIA [id number] [address] [place] WBC (Bld) [#/Vol] 11.22 10*3/uL High 3.70-11.00 [facility] Comment on above: Order Comment: Speci men Type: BLOOD SPECIMENOrdering Facility: [facility] Address: [address] [place] [address] Performed By: #### 5 8410-2 ####[facility]ATORYCLIA [id number] [address] [place] MRI BRAIN WO/W IVCONon 12-29 MRI BRAIN WO/W IVCON Normal [facility] Magnesium SerPl-mCncon 12-29 Magnesium [Mass/Vol] 1.6 mg/dL Low 1.7-2.3 [facility] Comment on above: Order Comment: Speci men Type: BLOOD SPECIMENOrdering Facility: [facility] Address: [address] [place] [address] Performed By: #### 2 4321-2, 40606-9, 2776-10 ####[facility]ATORYCLIA [id number] [address] Phosphate SerPl-mCncon 12-29 Phosphate [Mass/Vol] 4.2 mg/dL Normal 2.7-4.8 [facility] Comment on above: Order Comment: Speci men Type: BLOOD SPECIMENOrdering Facility: [facility] Address: [address] [place] [address] Performed By: #### 2 4321-2, 54732-4, 2776-10 ####[facility]ATORYCLIA [id number] [address] [place] Basic metabolic 2000 panelon 12-28-2022 Anion gap [Moles/Vol] 9 mmol/L Normal -18 [facility] Comment on above: Order Comment: Speci men Type: BLOOD SPECIMENOrdering Facility: [facility] Address: [address] [place] [address] Performed By: #### 2 777-1, 46247-5, ####[facility]ORATORYCLIA [id number] [place] [address] [place] Calcium [Mass/Vol] 8.7 mg/dL Normal 8.5-10.2 [facility] Comment on above: Order Comment: Speci men Type: BLOOD SPECIMENOrdering Facility: [facility] Address: [address] [place] [address] Performed By: #### 2 777-1, 31643-7, ####[facility]ATORYCLIA [id number] [place] [address] [place] Chloride [Moles/Vol] 107 mmol/L High 97-105 [facility] Comment on above: Order Comment: Speci men Type: BLOOD SPECIMENOrdering Facility: [facility] Address: [address] [place] [address] Performed By: #### 2 777-1, , ####[facility]ATORYCLIA [id number] [address] [place] CO2 [Moles/Vol] 22 mmol/L Normal 22-30 [facility] Comment on above: Order Comment: Speci men Type: BLOOD SPECIMENOrdering Facility: [facility] Address: [address] [place] [address] Performed By: #### 2 777-1, , ####[facility]ORATORYCLIA [id number] [address] [place] Creatinine [Mass/Vol] 0.44 mg/dL Low 0.58-0.96 [facility] Comment on above: Order Comment: Speci men Type: BLOOD SPECIMENOrdering Facility: [facility] Address: [address] [place] [address] Performed By: #### 2 777-1, , ####[facility]ORATORYCLIA [id number] [address] OF [facility] ESTIMATED GLOMERULAR FILTRATION RATE 104 mL/min/1.73m??? Normal >=60 [facility] Comment on above: Order Comment: Speci men Type: BLOOD SPECIMENOrdering Facility: [facility] Address: [address] [id number] Result Comment: Mariely mated Glomerular Filtration Rate (eGFR) is calculated using the 2020 CKD-EPI creatinine equation. This equation utilizes serum creatinine, sex, and age as parameters. The creatinine assay has traceable calibration to isotope dilution-mass spectrometry. Refer to KDIGO guidelines for clinical interpretation. In patients with unstable renal function, e.g. those with acute kidney injury, the eGFR may not accurately reflect actual GFR. Performed By: #### 2 777-1, 81486-2, ####[facility]ATORYCLIA [id number] [place] [address] [place] Glucose [Mass/Vol] 114 mg/dL High 74-99 [facility] Comment on above: Order Comment: Cary lujan Type: BLOOD SPECIMENOrdering Facility: [facility] Address: [address] [place] [address] Result Comment: The [place] [employer] (ADA) provides guidance for cutoff values for fasting glucose and random glucose. The ADA defines fasting as no caloric intake for at least 8 hours. Fasting plasma glucose results between 100 to 125 mg/dL indicate increased risk for diabetes (prediabetes).Fasting plasma glucose results greater than or equal to 126 mg/dL meet the criteria for diagnosis of diabetes. In the absence of unequivocal hyperglycemia, results should be confirmed by repeat testing. In a patient with classic symptoms of hyperglycemia or hyperglycemic crisis, random plasma glucose results greater than or equal to 200 mg/dL meet the criteria for diagnosis of diabetes.Reference: Standards of Medical Care in Diabetes 2016, [place] [employer]. Diabetes Care. 2016.39(Suppl 1). Performed By: #### 2 777-1, 44267-8, ####[facility]ORATORYCLIA [id number] [place] [address] [place] Potassium [Moles/Vol] 4.1 mmol/L Normal 3.7-5.1 [facility] Comment on above: Order Comment: Cary tai Type: BLOOD SPECIMENOrdering Facility: [facility] Address: [address] Performed By: #### 2 777-1, 59549-6, ####[facility]ATORYCLIA [id number] [address] STATES OF [facility] Sodium [Moles/Vol] 138 mmol/L Normal 136-144 [facility] Comment on above: Order Comment: Speci men Type: BLOOD SPECIMENOrdering Facility: [facility] Address: [address] [place] [address] Performed By: #### 2 777-1, 08650-5, ####[facility]ATORYCLIA [id number] [address] [place] Urea nitrogen [Mass/Vol] 9 mg/dL Normal 7-21 [facility] Comment on above: Order Comment: Speci men Type: BLOOD SPECIMENOrdering Facility: [facility] Address: [address] [place] [address] Performed By: #### 2 777-1, , ####[facility]ATORYCLIA [id number] [address] [place] CASE MANAGEMon 12-28-2022 CASE MANAGEM Normal [facility] CBC panel Auto (Bld)on 12-28 Erythrocyte distribution width (RBC) [Ratio] 14.7 % Normal 11.5-15.0 [facility] Comment on above: Order Comment: Speci men Type: BLOOD SPECIMENOrdering Facility: [facility] Address: [address] [place] [address] Performed By: #### 5 8410-2 ####[facility]ATORYCLIA [id number] [address] [place] Hematocrit (Bld) [Volume fraction] 29.9 % Low 36.0-46.0 [facility] Comment on above: Order Comment: Speci men Type: BLOOD SPECIMENOrdering Facility: [facility] Address: [address] [place] [address] Performed By: #### 5 8410-2 ####[facility]ATORYCLIA [id number] [address] Hemoglobin (Bld) [Mass/Vol] 9.5 g/dL Low 11.5-15.5 [facility] Comment on above: Order Comment: Speci men Type: BLOOD SPECIMENOrdering Facility: [facility] Address: [address] [place] [address] Performed By: #### 5 8410-2 ####[facility]ORATORYCLIA [id number] [address] MCH (RBC) [Entitic mass] 32.2 pg Normal 26.0-34.0 [facility] Comment on above: Order Comment: Speci men Type: BLOOD SPECIMENOrdering Facility: [facility] Address: [address] [place] [address] Performed By: #### 5 8410-2 ####[facility]ATORYCLIA [id number] [address] MCHC (RBC) [Mass/Vol] 31.8 g/dL Normal 30.5-36.0 [facility] Comment on above: Order Comment: Speci men Type: BLOOD SPECIMENOrdering Facility: [facility] Address: [address] [place] [address] Performed By: #### 5 8410-2 ####[facility]ATORYCLIA [id number] [address] MCV (RBC) [Entitic vol] 101.4 fL High 80.0-100.0 [facility] Comment on above: Order Comment: Speci men Type: BLOOD SPECIMENOrdering Facility: [facility] Address: [address] [place] [address] Performed By: #### 5 8410-2 ####[facility]ATORYCLIA [id number] [address] Nucleated RBC (Bld) [#/Vol] 10*3/uL Normal <0.01 [facility] Comment on above: Order Comment: Speci men Type: BLOOD SPECIMENOrdering Facility: [facility] Address: [address] [place] [address] Performed By: #### 5 8410-2 ####[facility]ATORYCLIA [id number] [address] [place] Platelet mean volume (Bld) [Entitic vol] 10.8 fL Normal 9.0-12.7 [facility] Comment on above: Order Comment: Speci men Type: BLOOD SPECIMENOrdering Facility: [facility] Address: [address] [place] [address] Performed By: #### 5 8410-2 ####[facility]ORYCLIA [id number] [address] [place] Platelets (Bld) [#/Vol] 333 10*3/uL Normal 150-400 [facility] Comment on above: Order Comment: Speci men Type: BLOOD SPECIMENOrdering Facility: [facility] Address: [address] [place] [address] Performed By: #### 5 8410-2 ####[facility]ATORYCLIA [id number] [address] [place] RBC (Bld) [#/Vol] 2.95 10*6/uL Low 3.90-5.20 [facility] Comment on above: Order Comment: Speci men Type: BLOOD SPECIMENOrdering Facility: [facility] Address: [address] [place] [address] Performed By: #### 5 8410-2 ####[facility]ATORYCLIA [id number] [address] [place] WBC (Bld) [#/Vol] 11.00 10*3/uL Normal 3.70-11.00 [facility] Comment on above: Order Comment: Speci men Type: BLOOD SPECIMENOrdering Facility: [facility] Address: [address] [place] [address] Performed By: #### 5 8410-2 ####[facility]ATORYCLIA [id number] [address] [place] CONSULTon 12-28-2022 CONSULT Normal [facility] Magnesium SerPl-mCncon 12-28 Magnesium [Mass/Vol] 1.7 mg/dL Normal 1.7-2.3 [facility] Comment on above: Order Comment: Speci men Type: BLOOD SPECIMENOrdering Facility: [facility] Address: [address] [place] [address] Performed By: #### 2 777-1, 97316-9, 42094-9 ####[facility]ATORYCLIA [id number] [place] [address] [place] Phosphate SerPl-mCncon 12-28 Phosphate [Mass/Vol] 3.7 mg/dL Normal 2.7-4.8 [facility] Comment on above: Order Comment: Speci men Type: BLOOD SPECIMENOrdering Facility: [facility] Address: [address] [place] [address] Performed By: #### 2 777-1, 97298-1, ####[facility]ATORYCLIA [id number] [place] [address] [place] ALLIED HEALTHon 12-27-2022 ALLIED HEALTH Normal [facility] ARTERIAL BLOOD GASESon 12-27 Base excess Calc (Bld) [Moles/Vol] 0 mmol/L Normal 0-2 [facility] Comment on above: Order Comment: Speci men Type: ARTERIAL BLOOD SPECIMENOrdering Facility: [facility] Address: [address] [place] [address] Performed By: #### A LLBG ####[facility] LABORATORYCLIA [id number] [place] [address] [place] Body temperature 96.8 [degF] Normal [facility] Comment on above: Order Comment: Speci men Type: ARTERIAL BLOOD SPECIMENOrdering Facility: [facility] Address: [address] [place] [address] Performed By: #### A LLBG ####[facility] LABORATORYCLIA [id number] [address] [place] Calcium.ionized (BldV) [Mass/Vol] 1.18 mmol/L Normal 1.08-1.30 [facility] Comment on above: Order Comment: Speci men Type: ARTERIAL BLOOD SPECIMENOrdering Facility: [facility] Address: [address] [place] [address] Performed By: #### A LLBG ####[facility] LABORATORYCLIA [id number] [address] OF [facility] Calcium.ionized adjusted to pH 7.4 (BldA) [Moles/Vol] 1.20 mmol/L Normal 1.08-1.30 [facility] Comment on above: Order Comment: Speci men Type: ARTERIAL BLOOD SPECIMENOrdering Facility: [facility] Address: [address] [place] [address] Performed By: #### A LLBG ####[facility] LABORATORYCLIA [id number] [address] STATES OF [facility] Carboxyhemoglobin (BldA) [Mass fraction] 1.2 % Normal 0.0-2.0 [facility] Comment on above: Order Comment: Speci men Type: ARTERIAL BLOOD SPECIMENOrdering Facility: [facility] Address: [address] [place] [address] Result Comment: Carb oxyhemoglobin Reference Range for Smokers: 2.0-8.0% Performed By: #### A LLBG ####[facility] LABORATORYCLIA [id number] [place] [address] [place] Chloride [Moles/Vol] 109 mmol/L Normal 102-109 [facility] Comment on above: Order Comment: Speci men Type: ARTERIAL BLOOD SPECIMENOrdering Facility: [facility] Address: [address] [place] [address] Performed By: #### A LLBG ####[facility]ATORYCLIA [id number] [address] OF [place] CO2 (Bld) [Partial pressure] 38 mm Hg Normal 36-46 [facility] Comment on above: Order Comment: Speci men Type: ARTERIAL BLOOD SPECIMENOrdering Facility: [facility] Address: [address] [address] Performed By: #### A LLBG ####[facility]ATORYCLIA [id number] [address] CO2 [Moles/Vol] 22 mmol/L Normal 22-28 [facility] Comment on above: Order Comment: Speci men Type: ARTERIAL BLOOD SPECIMENOrdering Facility: [facility] Address: [address] [place] [address] Performed By: #### A LLBG ####[facility] LABORATORYCLIA [id number] [address] CO2 adjusted to patient's actual temperature (Bld) [Partial pressure] 36 mmHg Normal 36-46 [facility] Comment on above: Order Comment: Speci men Type: ARTERIAL BLOOD SPECIMENOrdering Facility: [facility] Address: [address] [place] [address] Performed By: #### A LLBG ####[facility]ORYCLIA [id number] [address] [place] FIO2 30 % Normal [facility] Comment on above: Order Comment: Speci men Type: ARTERIAL BLOOD SPECIMENOrdering Facility: [facility] Address: [address] [place] [address] Performed By: #### A LLBG ####[facility]ORYCLIA [id number] [address] [place] Glucose [Mass/Vol] 123 mg/dL High 60-105 [facility] Comment on above: Order Comment: Speci men Type: ARTERIAL BLOOD SPECIMENOrdering Facility: [facility] Address: [address] [place] [address] Performed By: #### A LLBG ####[facility]ORYCLIA [id number] [address] HCO3 (Bld) [Moles/Vol] 24 mmol/L Normal 22-26 [facility] Comment on above: Order Comment: Speci men Type: ARTERIAL BLOOD SPECIMENOrdering Facility: [facility] Address: [address] [address] Performed By: #### A LLBG ####[facility]ATORYCLIA [id number] [address] Hematocrit (Bld) [Volume fraction] 30.4 % Low 36.0-46.0 [facility] Comment on above: Order Comment: Speci men Type: ARTERIAL BLOOD SPECIMENOrdering Facility: [facility] Address: [address] [place] [address] Performed By: #### A LLBG ####[facility] LABORATORYCLIA [id number] [address] OF [place] Hemoglobin (Bld) [Mass/Vol] 9.8 g/dL Low 11.5-15.5 [facility] Comment on above: Order Comment: Speci men Type: ARTERIAL BLOOD SPECIMENOrdering Facility: [facility] Address: [address] [place] [address] Performed By: #### A LLBG ####[facility]ATORYCLIA [id number] [address] Lactate [Moles/Vol] 0.7 mmol/L Normal 0.5-2.2 [facility] Comment on above: Order Comment: Speci men Type: ARTERIAL BLOOD SPECIMENOrdering Facility: [facility] Address: [address] [place] [address] Performed By: #### A LLBG ####[facility]ORYCLIA [id number] [address] Methemoglobin (Bld) [Mass fraction] % Normal 0.0-1.5 [facility] Comment on above: Order Comment: Speci men Type: ARTERIAL BLOOD SPECIMENOrdering Facility: [facility] Address: [address] [place] [address] Performed By: #### A LLBG ####[facility] LABORATORYCLIA [id number] [address] [place] O2 THERAPY Ventilator Normal [facility] Comment on above: Order Comment: Speci men Type: ARTERIAL BLOOD SPECIMENOrdering Facility: [facility] Address: [address] [place] [address] Performed By: #### A LLBG ####[facility]ORYCLIA [id number] [address] Oxygen (Bld) [Partial pressure] 94 mm Hg Normal 85-95 [facility] Comment on above: Order Comment: Speci men Type: ARTERIAL BLOOD SPECIMENOrdering Facility: [facility] Address: [address] [place] [address] Performed By: #### A LLBG ####[facility]ORYCLIA [id number] [address] Oxygen adjusted to patient's actual temperature (Bld) [Partial pressure] 89 mmHg Normal 85-95 [facility] Comment on above: Order Comment: Speci men Type: ARTERIAL BLOOD SPECIMENOrdering Facility: [facility] Address: [address] [place] [address] Performed By: #### A LLBG ####[facility]ORYCLIA [id number] [address] OF [place] Oxyhemoglobin (BldA) [Mass fraction] 95 % Normal 95-98 [facility] Comment on above: Order Comment: Speci men Type: ARTERIAL BLOOD SPECIMENOrdering Facility: [facility] Address: [address] [place] [address] Performed By: #### A LLBG ####[facility]ORYCLIA [id number] [address] PEEP/CPAP 5 cmH2O Normal [facility] Comment on above: Order Comment: Speci men Type: ARTERIAL BLOOD SPECIMENOrdering Facility: [facility] Address: [address] [place] [address] Result Comment: CPAP Performed By: #### A LLBG ####[facility]ORYCLIA [id number] [address] [place] pH (Bld) 7.42 [pH] Normal 7.35-7.45 [facility] Comment on above: Order Comment: Speci men Type: ARTERIAL BLOOD SPECIMENOrdering Facility: [facility] Address: [address] [place] [address] Performed By: #### A LLBG ####[facility]ATORYCLIA [id number] [address] pH adjusted to patient's actual temperature (Bld) 7.44 Normal 7.35-7.45 [facility] Comment on above: Order Comment: Speci men Type: ARTERIAL BLOOD SPECIMENOrdering Facility: [facility] Address: [address] [place] [address] Performed By: #### A LLBG ####[facility]ATORYCLIA [id number] [address] [place] Potassium [Moles/Vol] 4.1 mmol/L Normal 3.5-5.0 [facility] Comment on above: Order Comment: Speci men Type: ARTERIAL BLOOD SPECIMENOrdering Facility: [facility] Address: [address] [place] [address] Performed By: #### A LLBG ####[facility]ATORYCLIA [id number] [address] [place] Sodium [Moles/Vol] 139 mmol/L Normal 136-144 [facility] Comment on above: Order Comment: Speci men Type: ARTERIAL BLOOD SPECIMENOrdering Facility: [facility] Address: [address] [place] [address] Performed By: #### A LLBG ####[facility]ATORYCLIA [id number] [place] [address] [place] Basic metabolic 2000 panelon 12-27-2022 Anion gap [Moles/Vol] 7 mmol/L Low 9-18 [facility] Comment on above: Order Comment: Speci men Type: BLOOD SPECIMENOrdering Facility: [facility] Address: [address] [place] [address] Performed By: #### 2 4321-2, 86413-7, 2777-1 ####[facility]ATORYCLIA [id number] [place] [address] [place] Calcium [Mass/Vol] 8.8 mg/dL Normal 8.5-10.2 [facility] Comment on above: Order Comment: Speci men Type: BLOOD SPECIMENOrdering Facility: [facility] Address: [address] [place] [address] Performed By: #### 2 4321-2, , 2776-10 ####[facility]ATORYCLIA [id number] [place] [address] [place] Chloride [Moles/Vol] 107 mmol/L High 97-105 [facility] Comment on above: Order Comment: Speci men Type: BLOOD SPECIMENOrdering Facility: [facility] Address: [address] [place] [address] Performed By: #### 2 4321-2, , 2776-10 ####[facility]ATORYCLIA [id number] [address] [place] CO2 [Moles/Vol] 23 mmol/L Normal 22-30 [facility] Comment on above: Order Comment: Speci men Type: BLOOD SPECIMENOrdering Facility: [facility] Address: [address] [place] [address] Performed By: #### 2 4321-2, , 2776-10 ####[facility]ATORYCLIA [id number] [place] [address] [place] Creatinine [Mass/Vol] 0.45 mg/dL Low 0.58-0.96 [facility] Comment on above: Order Comment: Speci men Type: BLOOD SPECIMENOrdering Facility: [facility] Address: [address] [place] [address] Performed By: #### 2 4321-2, , 2776-10 ####[facility]ORATORYCLIA [id number] [address] [place] ESTIMATED GLOMERULAR FILTRATION RATE 103 mL/min/1.73m??? Normal >=60 [facility] Comment on above: Order Comment: Cary lujan Type: BLOOD SPECIMENOrdering Facility: [facility] Address: [address] [id number] Result Comment: Mariely mated Glomerular Filtration Rate (eGFR) is calculated using the 2020 CKD-EPI creatinine equation. This equation utilizes serum creatinine, sex, and age as parameters. The creatinine assay has traceable calibration to isotope dilution-mass spectrometry. Refer to KDIGO guidelines for clinical interpretation. In patients with unstable renal function, e.g. those with acute kidney injury, the eGFR may not accurately reflect actual GFR. Performed By: #### 2 4321-2, 88370-7, 2776-10 ####[facility]ATORYCLIA [id number] [place] [address] [place] Glucose [Mass/Vol] 106 mg/dL High 74-99 [facility] Comment on above: Order Comment: Cary lujan Type: BLOOD SPECIMENOrdering Facility: [facility] Address: [address] [place] [address] Result Comment: The [place] [employer] (ADA) provides guidance for cutoff values for fasting glucose and random glucose. The ADA defines fasting as no caloric intake for at least 8 hours. Fasting plasma glucose results between 100 to 125 mg/dL indicate increased risk for diabetes (prediabetes).Fasting plasma glucose results greater than or equal to 126 mg/dL meet the criteria for diagnosis of diabetes. In the absence of unequivocal hyperglycemia, results should be confirmed by repeat testing. In a patient with classic symptoms of hyperglycemia or hyperglycemic crisis, random plasma glucose results greater than or equal to 200 mg/dL meet the criteria for diagnosis of diabetes.Reference: Standards of Medical Care in Diabetes 2016, [place] [employer]. Diabetes Care. 2016.39(Suppl 1). Performed By: #### 2 4321-2, , 2776-10 ####[facility]ATORYCLIA [id number] [place] [address] [place] Potassium [Moles/Vol] 4.3 mmol/L Normal 3.7-5.1 [facility] Comment on above: Order Comment: Cary lujna Type: BLOOD SPECIMENOrdering Facility: [facility] Address: [address] [place] [address] Performed By: #### 2 4321-2, 27963-2, 2776- ####[facility]ATORYCLIA [id number] [address] STATES [facility] Sodium [Moles/Vol] 137 mmol/L Normal 136-144 [facility] Comment on above: Order Comment: Speci men Type: BLOOD SPECIMENOrdering Facility: [facility] Address: [address] [address] Performed By: #### 2 4321-2, , 2776-10 ####[facility]ORYCLIA [id number] [address] [place] Urea nitrogen [Mass/Vol] 7 mg/dL Normal 7-21 [facility] Comment on above: Order Comment: Speci men Type: BLOOD SPECIMENOrdering Facility: [facility] Address: [address] [place] [address] Performed By: #### 2 4321-2, , 2776-10 ####[facility]ORYCLIA [id number] [address] [place] CBC panel Auto (Bld)on 12-27 Erythrocyte distribution width (RBC) [Ratio] 14.6 % Normal 11.5-15.0 [facility] Comment on above: Order Comment: Speci men Type: BLOOD SPECIMENOrdering Facility: [facility] Address: [address] [address] Performed By: #### 5 8410-2 ####[facility]ATORYCLIA [id number] [address] Hematocrit (Bld) [Volume fraction] 29.7 % Low 36.0-46.0 [facility] Comment on above: Order Comment: Speci men Type: BLOOD SPECIMENOrdering Facility: [facility] Address: [address] [address] Performed By: #### 5 8410-2 ####[facility]ATORYCLIA [id number] [address] Hemoglobin (Bld) [Mass/Vol] 9.6 g/dL Low 11.5-15.5 [facility] Comment on above: Order Comment: Speci men Type: BLOOD SPECIMENOrdering Facility: [facility] Address: [address] [place] [address] Performed By: #### 5 8410-2 ####[facility]ATORYCLIA [id number] [address] MCH (RBC) [Entitic mass] 32.4 pg Normal 26.0-34.0 [facility] Comment on above: Order Comment: Speci men Type: BLOOD SPECIMENOrdering Facility: [facility] Address: [address] [place] [address] Performed By: #### 5 8410-2 ####[facility]ATORYCLIA [id number] [address] MCHC (RBC) [Mass/Vol] 32.3 g/dL Normal 30.5-36.0 [facility] Comment on above: Order Comment: Speci men Type: BLOOD SPECIMENOrdering Facility: [facility] Address: [address] [place] [address] Performed By: #### 5 8410-2 ####[facility]ORATORYCLIA [id number] [address] OF [facility] MCV (RBC) [Entitic vol] 100.3 fL High 80.0-100.0 [facility] Comment on above: Order Comment: Speci men Type: BLOOD SPECIMENOrdering Facility: [facility] Address: [address] [place] [address] Performed By: #### 5 8410-2 ####[facility]ATORYCLIA [id number] [address] Nucleated RBC (Bld) [#/Vol] 10*3/uL Normal <0.01 [facility] Comment on above: Order Comment: Speci men Type: BLOOD SPECIMENOrdering Facility: [facility] Address: [address] [address] Performed By: #### 5 8410-2 ####[facility]ORYCLIA [id number] [address] [place] Platelet mean volume (Bld) [Entitic vol] 11.0 fL Normal 9.0-12.7 [facility] Comment on above: Order Comment: Speci men Type: BLOOD SPECIMENOrdering Facility: [facility] Address: [address] [place] [address] Performed By: #### 5 8410-2 ####[facility]ATORYCLIA [id number] [address] [place] Platelets (Bld) [#/Vol] 330 10*3/uL Normal 150-400 [facility] Comment on above: Order Comment: Speci men Type: BLOOD SPECIMENOrdering Facility: [facility] Address: [address] [place] [address] Performed By: #### 5 8410-2 ####[facility]ATORYCLIA [id number] [place] [address] [place] RBC (Bld) [#/Vol] 2.96 10*6/uL Low 3.90-5.20 [facility] Comment on above: Order Comment: Speci men Type: BLOOD SPECIMENOrdering Facility: [facility] Address: [address] [place] [address] Performed By: #### 5 8410-2 ####[facility]ORYCLIA [id number] [address] [place] WBC (Bld) [#/Vol] 9.89 10*3/uL Normal 3.70-11.00 [facility] Comment on above: Order Comment: Speci men Type: BLOOD SPECIMENOrdering Facility: [facility] Address: [address] [place] [address] Performed By: #### 5 8410-2 ####[facility]ATORYCLIA [id number] [address] [place] Magnesium SerPl-mCncon 12-27 Magnesium [Mass/Vol] 1.6 mg/dL Low 1.7-2.3 [facility] Comment on above: Order Comment: Speci tai Type: BLOOD SPECIMENOrdering Facility: [facility] Address: [address] [address] Performed By: #### 2 4321-2, 70277-2, 2776-10 ####[facility]ATORYCLIA [id number] [address] OF [facility] NURSING PROGon 12-27-2022 NURSING PROG Normal [facility] NUTRITIONon 12-27-2022 NUTRITION Normal [facility] Phenobarb SerPl-ncon 12-27 PHENobarbital [Mass/Vol] 27.9 ug/mL Normal 10.0-40.0 [facility] Comment on above: Order Comment: Speci tai Type: BLOOD SPECIMENOrdering Facility: [facility] Address: [address] [address] Result Comment: Refe rence ranges and high/low indicator flags are provided as general guidelines only. The treating physician must determine appropriate target levels/dosing based on the specific clinical situation. Performed By: #### 3 948-7 ####[facility]ATORYCLIA [id number] [address] [place] Phosphate SerPl-ncon 12-27 Phosphate [Mass/Vol] 3.5 mg/dL Normal 2.7-4.8 [facility] Comment on above: Order Comment: Speci tai Type: BLOOD SPECIMENOrdering Facility: [facility] Address: [address] [address] Performed By: #### 2 4321-2, 83654-9, 2776-10 ####[facility]ORYCLIA [id number] [address] [place] ALLIED HEALTHon 12-26-2022 ALLIED HEALTH Normal [facility] ARTERIAL BLOOD GASESon 12-26 Base deficit (BldA) [Moles/Vol] -1 mmol/L Normal -2-0 [facility] Comment on above: Order Comment: Speci men Type: ARTERIAL BLOOD SPECIMENOrdering Facility: [facility] Address: [address] [place] [address] Performed By: #### A LLBG ####[facility]ATORYCLIA [id number] [address] Body temperature 97.52 [degF] Normal [facility] Comment on above: Order Comment: Speci men Type: ARTERIAL BLOOD SPECIMENOrdering Facility: [facility] Address: [address] [place] [address] Performed By: #### A LLBG ####[facility]ATORYCLIA [id number] [address] [place] Calcium.ionized (BldV) [Mass/Vol] 1.20 mmol/L Normal 1.08-1.30 [facility] Comment on above: Order Comment: Speci men Type: ARTERIAL BLOOD SPECIMENOrdering Facility: [facility] Address: [address] [place] [address] Performed By: #### A LLBG ####[facility]ATORYCLIA [id number] [address] OF [facility] Calcium.ionized adjusted to pH 7.4 (BldA) [Moles/Vol] 1.21 mmol/L Normal 1.08-1.30 [facility] Comment on above: Order Comment: Speci men Type: ARTERIAL BLOOD SPECIMENOrdering Facility: [facility] Address: [address] [place] [address] Performed By: #### A LLBG ####[facility]ATORYCLIA [id number] [address] [place] Carboxyhemoglobin (BldA) [Mass fraction] 1.2 % Normal 0.0-2.0 [facility] Comment on above: Order Comment: Speci men Type: ARTERIAL BLOOD SPECIMENOrdering Facility: [facility] Address: [address] [place] [address] Result Comment: Carb oxyhemoglobin Reference Range for Smokers: 2.0-8.0% Performed By: #### A LLBG ####[facility]ATORYCLIA [id number] [place] [address] [place] Chloride [Moles/Vol] 111 mmol/L High 102-109 [facility] Comment on above: Order Comment: Speci men Type: ARTERIAL BLOOD SPECIMENOrdering Facility: [facility] Address: [address] [place] [address] Performed By: #### A LLBG ####[facility] LABORATORYCLIA [id number] [address] [place] CO2 (Bld) [Partial pressure] 35 mm Hg Low 36-46 [facility] Comment on above: Order Comment: Speci men Type: ARTERIAL BLOOD SPECIMENOrdering Facility: [facility] Address: [address] [place] [address] Performed By: #### A LLBG ####[facility]ATORYCLIA [id number] [address] [place] CO2 [Moles/Vol] 21 mmol/L Low 22-28 [facility] Comment on above: Order Comment: Speci men Type: ARTERIAL BLOOD SPECIMENOrdering Facility: [facility] Address: [address] [place] [address] Performed By: #### A LLBG ####[facility]ATORYCLIA [id number] [address] [place] CO2 adjusted to patient's actual temperature (Bld) [Partial pressure] 34 mmHg Low 36-46 [facility] Comment on above: Order Comment: Speci men Type: ARTERIAL BLOOD SPECIMENOrdering Facility: [facility] Address: [address] [place] [address] Performed By: #### A LLBG ####[facility]ATORYCLIA [id number] [address] [place] Glucose [Mass/Vol] 135 mg/dL High 60-105 [facility] Comment on above: Order Comment: Speci men Type: ARTERIAL BLOOD SPECIMENOrdering Facility: [facility] Address: [address] [place] [address] Performed By: #### A LLBG ####[facility]ATORYCLIA [id number] [address] [place] HCO3 (Bld) [Moles/Vol] 22 mmol/L Normal 22-26 [facility] Comment on above: Order Comment: Speci men Type: ARTERIAL BLOOD SPECIMENOrdering Facility: [facility] Address: [address] [place] [address] Performed By: #### A LLBG ####[facility]ATORYCLIA [id number] [address] [place] Hematocrit (Bld) [Volume fraction] 29.7 % Low 36.0-46.0 [facility] Comment on above: Order Comment: Speci men Type: ARTERIAL BLOOD SPECIMENOrdering Facility: [facility] Address: [address] [place] [address] Performed By: #### A LLBG ####[facility]ATORYCLIA [id number] [address] Hemoglobin (Bld) [Mass/Vol] 9.6 g/dL Low 11.5-15.5 [facility] Comment on above: Order Comment: Speci men Type: ARTERIAL BLOOD SPECIMENOrdering Facility: [facility] Address: [address] [place] [address] Performed By: #### A LLBG ####[facility]ORYCLIA [id number] [address] [place] Lactate [Moles/Vol] 1.1 mmol/L Normal 0.5-2.2 [facility] Comment on above: Order Comment: Speci men Type: ARTERIAL BLOOD SPECIMENOrdering Facility: [facility] Address: [address] [place] [address] Performed By: #### A LLBG ####[facility]ATORYCLIA [id number] [address] [place] Methemoglobin (Bld) [Mass fraction] % Normal 0.0-1.5 [facility] Comment on above: Order Comment: Speci men Type: ARTERIAL BLOOD SPECIMENOrdering Facility: [facility] Address: [address] [place] [address] Performed By: #### A LLBG ####[facility]ATORYCLIA [id number] [address] O2 THERAPY Ventilator Normal [facility] Comment on above: Order Comment: Speci men Type: ARTERIAL BLOOD SPECIMENOrdering Facility: [facility] Address: [address] [place] [address] Performed By: #### A LLBG ####[facility]ORATORYCLIA [id number] [address] Oxygen (Bld) [Partial pressure] 90 mm Hg Normal 85-95 [facility] Comment on above: Order Comment: Speci men Type: ARTERIAL BLOOD SPECIMENOrdering Facility: [facility] Address: [address] [place] [address] Performed By: #### A LLBG ####[facility] LABORATORYCLIA [id number] [address] Oxygen adjusted to patient's actual temperature (Bld) [Partial pressure] 87 mmHg Normal 85-95 [facility] Comment on above: Order Comment: Speci men Type: ARTERIAL BLOOD SPECIMENOrdering Facility: [facility] Address: [address] [place] [address] Performed By: #### A LLBG ####[facility]ATORYCLIA [id number] [address] [place] Oxyhemoglobin (BldA) [Mass fraction] 95 % Normal 95-98 [facility] Comment on above: Order Comment: Speci men Type: ARTERIAL BLOOD SPECIMENOrdering Facility: [facility] Address: [address] [place] [address] Performed By: #### A LLBG ####[facility]ORATORYCLIA [id number] [address] [place] pH (Bld) 7.42 [pH] Normal 7.35-7.45 [facility] Comment on above: Order Comment: Speci men Type: ARTERIAL BLOOD SPECIMENOrdering Facility: [facility] Address: [address] [place] [address] Performed By: #### A LLBG ####[facility] LABORATORYCLIA [id number] [address] pH adjusted to patient's actual temperature (Bld) 7.43 Normal 7.35-7.45 [facility] Comment on above: Order Comment: Speci men Type: ARTERIAL BLOOD SPECIMENOrdering Facility: [facility] Address: [address] [place] [address] Performed By: #### A LLBG ####[facility] LABORATORYCLIA [id number] [address] [place] Potassium [Moles/Vol] 3.9 mmol/L Normal 3.5-5.0 [facility] Comment on above: Order Comment: Speci men Type: ARTERIAL BLOOD SPECIMENOrdering Facility: [facility] Address: [address] [place] [address] Performed By: #### A LLBG ####[facility] LABORATORYCLIA [id number] [address] [place] Sodium [Moles/Vol] 137 mmol/L Normal 136-144 [facility] Comment on above: Order Comment: Speci men Type: ARTERIAL BLOOD SPECIMENOrdering Facility: [facility] Address: [address] [place] [address] Performed By: #### A LLBG ####[facility]ATORYCLIA [id number] [place] [address] [place] Basic metabolic 2000 panelon 12-26-2022 Anion gap [Moles/Vol] 6 mmol/L Low 9-18 [facility] Comment on above: Order Comment: Speci men Type: BLOOD SPECIMENOrdering Facility: [facility] Address: [address] [place] [address] Performed By: #### 2 4321-2, 75671-1, 2777-1 ####[facility]ATORYCLIA [id number] [address] [place] Calcium [Mass/Vol] 8.5 mg/dL Normal 8.5-10.2 [facility] Comment on above: Order Comment: Speci men Type: BLOOD SPECIMENOrdering Facility: [facility] Address: [address] [place] [address] Performed By: #### 2 4321-2, , 2776-10 ####[facility] LABORATORYCLIA [id number] [place] [address] [place] Chloride [Moles/Vol] 110 mmol/L High 97-105 [facility] Comment on above: Order Comment: Speci men Type: BLOOD SPECIMENOrdering Facility: [facility] Address: [address] [place] [address] Performed By: #### 2 4321-2, , 2776-10 ####[facility] LABORATORYCLIA [id number] [address] STATES OF [facility] CO2 [Moles/Vol] 22 mmol/L Normal 22-30 [facility] Comment on above: Order Comment: Speci men Type: BLOOD SPECIMENOrdering Facility: [facility] Address: [address] [place] [address] Performed By: #### 2 4321-2, , 2776-10 ####[facility]ORATORYCLIA [id number] [address] [place] Creatinine [Mass/Vol] 0.46 mg/dL Low 0.58-0.96 [facility] Comment on above: Order Comment: Speci men Type: BLOOD SPECIMENOrdering Facility: [facility] Address: [address] [place] [address] Performed By: #### 2 4321-2, , 2776-10 ####[facility]ORATORYCLIA [id number] [address] [place] ESTIMATED GLOMERULAR FILTRATION RATE 102 mL/min/1.73m??? Normal >=60 [facility] Comment on above: Order Comment: Speci men Type: BLOOD SPECIMENOrdering Facility: [facility] Address: [address] [id number] Result Comment: Mariely mated Glomerular Filtration Rate (eGFR) is calculated using the 2020 CKD-EPI creatinine equation. This equation utilizes serum creatinine, sex, and age as parameters. The creatinine assay has traceable calibration to isotope dilution-mass spectrometry. Refer to KDIGO guidelines for clinical interpretation. In patients with unstable renal function, e.g. those with acute kidney injury, the eGFR may not accurately reflect actual GFR. Performed By: #### 2 4321-2, , 2776-10 ####[facility]ORATORYCLIA [id number] [place] [address] [place] Glucose [Mass/Vol] 111 mg/dL High 74-99 [facility] Comment on above: Order Comment: Cary lujan Type: BLOOD SPECIMENOrdering Facility: [facility] Address: [address] [place] [address] Result Comment: The [place] [employer] (ADA) provides guidance for cutoff values for fasting glucose and random glucose. The ADA defines fasting as no caloric intake for at least 8 hours. Fasting plasma glucose results between 100 to 125 mg/dL indicate increased risk for diabetes (prediabetes).Fasting plasma glucose results greater than or equal to 126 mg/dL meet the criteria for diagnosis of diabetes. In the absence of unequivocal hyperglycemia, results should be confirmed by repeat testing. In a patient with classic symptoms of hyperglycemia or hyperglycemic crisis, random plasma glucose results greater than or equal to 200 mg/dL meet the criteria for diagnosis of diabetes.Reference: Standards of Medical Care in Diabetes 2016, [place] [employer]. Diabetes Care. 2016.39(Suppl 1). Performed By: #### 2 4321-2, , 2776-10 ####[facility]ORATORYCLIA [id number] [place] [address] [place] Potassium [Moles/Vol] 4.1 mmol/L Normal 3.7-5.1 [facility] Comment on above: Order Comment: [place] [facility] Type: BLOOD SPECIMENOrdering Facility: [facility] Address: [address] Performed By: #### 2 4321-2, , 2776-10 ####[facility]ORATORYCLIA [id number] [address] STATES [facility] Sodium [Moles/Vol] 138 mmol/L Normal 136-144 [facility] Comment on above: Order Comment: Speci men Type: BLOOD SPECIMENOrdering Facility: [facility] Address: [address] [place] [address] Performed By: #### 2 4321-2, , 2776-10 ####[facility]ORATORYCLIA [id number] [address] [place] Urea nitrogen [Mass/Vol] 7 mg/dL Normal 7-21 [facility] Comment on above: Order Comment: Speci men Type: BLOOD SPECIMENOrdering Facility: [facility] Address: [address] [place] [address] Performed By: #### 2 432-2, , 2776-10 ####[facility]ORATORYCLIA [id number] [address] [place] CASE MANAGEMon 12-26-2022 CASE MANAGEM Normal [facility] CBC panel Auto (Bld)on 12-26 Erythrocyte distribution width (RBC) [Ratio] 14.6 % Normal 11.5-15.0 [facility] Comment on above: Order Comment: Speci men Type: BLOOD SPECIMENOrdering Facility: [facility] Address: [address] [place] [address] Performed By: #### 5 8410-2 ####[facility]ORATORYCLIA [id number] [address] Hematocrit (Bld) [Volume fraction] 29.8 % Low 36.0-46.0 [facility] Comment on above: Order Comment: Speci men Type: BLOOD SPECIMENOrdering Facility: [facility] Address: [address] [place] [address] Performed By: #### 5 8410-2 ####[facility]ORATORYCLIA [id number] [address] OF [facility] Hemoglobin (Bld) [Mass/Vol] 9.3 g/dL Low 11.5-15.5 [facility] Comment on above: Order Comment: Speci men Type: BLOOD SPECIMENOrdering Facility: [facility] Address: [address] [place] [address] Performed By: #### 5 8410-2 ####[facility]ORATORYCLIA [id number] [address] MCH (RBC) [Entitic mass] 32.0 pg Normal 26.0-34.0 [facility] Comment on above: Order Comment: Speci men Type: BLOOD SPECIMENOrdering Facility: [facility] Address: [address] [place] [address] Performed By: #### 5 8410-2 ####[facility]ATORYCLIA [id number] [address] MCHC (RBC) [Mass/Vol] 31.2 g/dL Normal 30.5-36.0 [facility] Comment on above: Order Comment: Speci men Type: BLOOD SPECIMENOrdering Facility: [facility] Address: [address] [place] [address] Performed By: #### 5 8410-2 ####[facility]ATORYCLIA [id number] [address] MCV (RBC) [Entitic vol] 102.4 fL High 80.0-100.0 [facility] Comment on above: Order Comment: Speci men Type: BLOOD SPECIMENOrdering Facility: [facility] Address: [address] [place] [address] Performed By: #### 5 8410-2 ####[facility]ORATORYCLIA [id number] [address] Nucleated RBC (Bld) [#/Vol] 10*3/uL Normal <0.01 [facility] Comment on above: Order Comment: Speci men Type: BLOOD SPECIMENOrdering Facility: [facility] Address: [address] [address] Performed By: #### 5 8410-2 ####[facility]ATORYCLIA [id number] [address] Platelet mean volume (Bld) [Entitic vol] 10.6 fL Normal 9.0-12.7 [facility] Comment on above: Order Comment: Speci men Type: BLOOD SPECIMENOrdering Facility: [facility] Address: [address] [place] [address] Performed By: #### 5 8410-2 ####[facility]ATORYCLIA [id number] [address] [place] Platelets (Bld) [#/Vol] 313 10*3/uL Normal 150-400 [facility] Comment on above: Order Comment: Speci men Type: BLOOD SPECIMENOrdering Facility: [facility] Address: [address] [place] [address] Performed By: #### 5 8410-2 ####[facility]ATORYCLIA [id number] [address] [place] RBC (Bld) [#/Vol] 2.91 10*6/uL Low 3.90-5.20 [facility] Comment on above: Order Comment: Speci men Type: BLOOD SPECIMENOrdering Facility: [facility] Address: [address] [place] [address] Performed By: #### 5 8410-2 ####[facility]ATORYCLIA [id number] [address] [place] WBC (Bld) [#/Vol] 8.82 10*3/uL Normal 3.70-11.00 [facility] Comment on above: Order Comment: Speci men Type: BLOOD SPECIMENOrdering Facility: [facility] Address: [address] [place] [address] Performed By: #### 5 8410-2 ####[facility]ORATORYCLIA [id number] [address] [place] Magnesium SerPl-ncon 12-26 Magnesium [Mass/Vol] 1.5 mg/dL Low 1.7-2.3 [facility] Comment on above: Order Comment: Speci men Type: BLOOD SPECIMENOrdering Facility: [facility] Address: [address] [place] [address] Performed By: #### 2 4321-2, 94293-3, 2776-10 ####[facility]ATORYCLIA [id number] [address] [place] Phosphate SerPl-mCncon 12-26 Phosphate [Mass/Vol] 3.6 mg/dL Normal 2.7-4.8 [facility] Comment on above: Order Comment: Speci men Type: BLOOD SPECIMENOrdering Facility: [facility] Address: [address] [place] [address] Performed By: #### 2 4321-2, , 2776-10 ####[facility]ORATORYCLIA [id number] [place] [address] [place] Basic metabolic 2000 panelon 12-25-2022 Anion gap [Moles/Vol] 8 mmol/L Low 9-18 [facility] Comment on above: Order Comment: Speci men Type: BLOOD SPECIMENOrdering Facility: [facility] Address: [address] [place] [address] Performed By: #### 2 4321-2, 2776-10, ####[facility]ATORYCLIA [id number] [address] [place] Calcium [Mass/Vol] 8.3 mg/dL Low 8.5-10.2 [facility] Comment on above: Order Comment: Speci men Type: BLOOD SPECIMENOrdering Facility: [facility] Address: [address] [place] [address] Performed By: #### 2 4321-2, 2776-, ####[facility]ATORYCLIA [id number] [address] [place] Chloride [Moles/Vol] 110 mmol/L High 97-105 [facility] Comment on above: Order Comment: Speci men Type: BLOOD SPECIMENOrdering Facility: [facility] Address: [address] [place] [address] Performed By: #### 2 4321-2, 2776-10, ####[facility]ATORYCLIA [id number] [address] OF [facility] CO2 [Moles/Vol] 21 mmol/L Low 22-30 [facility] Comment on above: Order Comment: Speci men Type: BLOOD SPECIMENOrdering Facility: [facility] Address: [address] [place] [address] Performed By: #### 2 4321-2, 2776-10, ####[facility]ATORYCLIA [id number] [address] Creatinine [Mass/Vol] 0.54 mg/dL Low 0.58-0.96 [facility] Comment on above: Order Comment: Speci men Type: BLOOD SPECIMENOrdering Facility: [facility] Address: [address] [place] [address] Performed By: #### 2 4321-2, 2776-10, ####[facility]ATORYCLIA [id number] [address] ESTIMATED GLOMERULAR FILTRATION RATE 99 mL/min/1.73m??? Normal >=60 [facility] Comment on above: Order Comment: Speci men Type: BLOOD SPECIMENOrdering Facility: [facility] Address: [address] [place] [address] Result Comment: Mariely mated Glomerular Filtration Rate (eGFR) is calculated using the 2020 CKD-EPI creatinine equation. This equation utilizes serum creatinine, sex, and age as parameters. The creatinine assay has traceable calibration to isotope dilution-mass spectrometry. Refer to KDIGO guidelines for clinical interpretation. In patients with unstable renal function, e.g. those with acute kidney injury, the eGFR may not accurately reflect actual GFR. Performed By: #### 2 4321-2, 2776-1, ####[facility] LABORATORYCLIA [id number] [place] [address] [place] Glucose [Mass/Vol] 105 mg/dL High 74-99 [facility] Comment on above: Order Comment: Speci men Type: BLOOD SPECIMENOrdering Facility: [facility] Address: [address] [place], [place] [id number] Result Comment: The [place] [employer] (ADA) provides guidance for cutoff values for fasting glucose and random glucose. The ADA defines fasting as no caloric intake for at least 8 hours. Fasting plasma glucose results between 100 to 125 mg/dL indicate increased risk for diabetes (prediabetes).Fasting plasma glucose results greater than or equal to 126 mg/dL meet the criteria for diagnosis of diabetes. In the absence of unequivocal hyperglycemia, results should be confirmed by repeat testing. In a patient with classic symptoms of hyperglycemia or hyperglycemic crisis, random plasma glucose results greater than or equal to 200 mg/dL meet the criteria for diagnosis of diabetes.Reference: Standards of Medical Care in Diabetes 2016, [place] [employer]. Diabetes Care. 2016.39(Suppl 1). Performed By: #### 2 4321-2, 2776-10, ####[facility]ATORYCLIA [id number] [place] [address] [place] Potassium [Moles/Vol] 4.0 mmol/L Normal 3.7-5.1 [facility] Comment on above: Order Comment: Speci men Type: BLOOD SPECIMENOrdering Facility: [facility] Address: [address] [place], [place] [phone] Performed By: #### 2 4321-2, 27704-13, ####[facility]ATORYCLIA [id number] [place] [address] [place] Sodium [Moles/Vol] 139 mmol/L Normal 136-144 [facility] Comment on above: Order Comment: Speci men Type: BLOOD SPECIMENOrdering Facility: [facility] Address: [address] [place], [place] [phone] Performed By: #### 2 4321-2, 2776-10, ####[facility]ATORYCLIA [id number] [place], [place] [address] [place] [address] STATES OF [facility] Urea nitrogen [Mass/Vol] 8 mg/dL Normal 7-21 [facility] Comment on above: Order Comment: Speci men Type: BLOOD SPECIMENOrdering Facility: [facility] Address: [address] [place] [address] Performed By: #### 2 4321-2, 2776-10, ####[facility]ATORYCLIA [id number] [address] CBC panel Auto (Bld)on 12-25 Erythrocyte distribution width (RBC) [Ratio] 14.9 % Normal 11.5-15.0 [facility] Comment on above: Order Comment: Speci men Type: BLOOD SPECIMENOrdering Facility: [facility] Address: [address] [place] [address] Performed By: #### 5 8410-2 ####[facility]CL[facility] [id number] [address] STATES OF [facility] Hematocrit (Bld) [Volume fraction] 28.3 % Low 36.0-46.0 [facility] Comment on above: Order Comment: Speci men Type: BLOOD SPECIMENOrdering Facility: [facility] Address: [address] [place] [address] Performed By: #### 5 8410-2 ####[facility]ATORYCLIA [id number] [address] STATES OF [facility] Hemoglobin (Bld) [Mass/Vol] 9.0 g/dL Low 11.5-15.5 [facility] Comment on above: Order Comment: Speci men Type: BLOOD SPECIMENOrdering Facility: [facility] Address: [address] [place] [address] Performed By: #### 5 8410-2 ####[facility]ATORYCLIA [id number] [address] [place] MCH (RBC) [Entitic mass] 32.0 pg Normal 26.0-34.0 [facility] Comment on above: Order Comment: Speci men Type: BLOOD SPECIMENOrdering Facility: [facility] Address: [address] [place] [address] Performed By: #### 5 8410-2 ####[facility]ATORYCLIA [id number] [address] MCHC (RBC) [Mass/Vol] 31.8 g/dL Normal 30.5-36.0 [facility] Comment on above: Order Comment: Speci men Type: BLOOD SPECIMENOrdering Facility: [facility] Address: [address] [place] [address] Performed By: #### 5 8410-2 ####[facility]ATORYCLIA [id number] [address] [place] MCV (RBC) [Entitic vol] 100.7 fL High 80.0-100.0 [facility] Comment on above: Order Comment: Speci men Type: BLOOD SPECIMENOrdering Facility: [facility] Address: [address] [place] [address] Performed By: #### 5 8410-2 ####[facility]ORYCLIA [id number] [address] Nucleated RBC (Bld) [#/Vol] 10*3/uL Normal <0.01 [facility] Comment on above: Order Comment: Speci men Type: BLOOD SPECIMENOrdering Facility: [facility] Address: [address] [place] [address] Performed By: #### 5 8410-2 ####[facility]ORYCLIA [id number] [address] Platelet mean volume (Bld) [Entitic vol] 11.3 fL Normal 9.0-12.7 [facility] Comment on above: Order Comment: Speci men Type: BLOOD SPECIMENOrdering Facility: [facility] Address: [address] [place] [address] Performed By: #### 5 8410-2 ####[facility]ATORYCLIA [id number] [address] OF [facility] Platelets (Bld) [#/Vol] 294 10*3/uL Normal 150-400 [facility] Comment on above: Order Comment: Speci men Type: BLOOD SPECIMENOrdering Facility: [facility] Address: [address] [place] [address] Performed By: #### 5 8410-2 ####[facility]ORYCLIA [id number] [address] STATES OF [facility] RBC (Bld) [#/Vol] 2.81 10*6/uL Low 3.90-5.20 [facility] Comment on above: Order Comment: Speci men Type: BLOOD SPECIMENOrdering Facility: [facility] Address: [address] [place] [address] Performed By: #### 5 8410-2 ####[facility]ATORYCLIA [id number] [address] WBC (Bld) [#/Vol] 7.71 10*3/uL Normal 3.70-11.00 [facility] Comment on above: Order Comment: Speci men Type: BLOOD SPECIMENOrdering Facility: [facility] Address: [address] [place] [address] Performed By: #### 5 8410-2 ####[facility]ATORYCLIA [id number] [address] CONSULT PROGon 12-25-2022 CONSULT PROG Normal [facility] Magnesium SerPl-mCncon 12-25 Magnesium [Mass/Vol] 1.6 mg/dL Low 1.7-2.3 [facility] Comment on above: Order Comment: Speci men Type: BLOOD SPECIMENOrdering Facility: [facility] Address: [address] [place] [address] Performed By: #### 2 4321-2, 2777-1, 89806-2 ####[facility]ATORYCLIA [id number] [address] PT EDon 12-25-2022 PT ED Normal [facility] Phosphate SerPl-mCncon 12-25 Phosphate [Mass/Vol] 3.0 mg/dL Normal 2.7-4.8 [facility] Comment on above: Order Comment: Speci men Type: BLOOD SPECIMENOrdering Facility: [facility] Address: [address] [place] [address] Performed By: #### 2 4321-2, 2777-1, ####[facility] LABORATORYCLIA [id number] [address] [place] Bacteria Spec Resp Culton Bacteria identified Respiratory culture Nom (Unsp spec) CULTURE, RESPIRATORY: Rare Normal respiratory jorge present ORGANISM ID: 1 Rare Acinetobacter baumannii complex Refer to specimen collected on 12/21/22 GRAM STAIN: No organisms seen Many Polymorphonuclear leukocytes Abnormal [facility] Comment on above: Performed By: #### 3 2355-0 ####[facility] LABORATORYCLIA [id number] [place] [address] [place] Basic metabolic 2000 panelon 12-24-2022 Anion gap [Moles/Vol] 8 mmol/L Low 9-18 [facility] Comment on above: Order Comment: Speci men Type: BLOOD SPECIMENOrdering Facility: [facility] Address: [address] [place] [address] Performed By: #### 2 777-1, 70638-6, 68518-2, 3015-3, 3024-7 ####[facility]ATORYCLIA [id number] [place] [address] [place] [facility] Calcium [Mass/Vol] 8.0 mg/dL Low 8.5-10.2 [facility] Comment on above: Order Comment: Speci men Type: BLOOD SPECIMENOrdering Facility: [facility] Address: [address] [place], [place] [address] Performed By: #### 2 777-1, 51320-5, 18271-6, 6-3, 3024-7 ####[facility]ATORYCLIA [id number] [place] [address] [place] Chloride [Moles/Vol] 110 mmol/L High 97-105 [facility] Comment on above: Order Comment: Speci men Type: BLOOD SPECIMENOrdering Facility: [facility] Address: [address] [place] [address] Performed By: #### 2 777-1, 05561-5, 92178-1, 3016-3, 3024-7 ####[facility] LABORATORYCLIA [id number] [place] [address] [place] CO2 [Moles/Vol] 20 mmol/L Low 22-30 [facility] Comment on above: Order Comment: Speci men Type: BLOOD SPECIMENOrdering Facility: [facility] Address: [address] [place] [address] Performed By: #### 2 777-1, 52672-1, 33669-6, 3015-3, 3024-7 ####[facility] LABORATORYCLIA [id number] [address] [place] Creatinine [Mass/Vol] 0.63 mg/dL Normal 0.58-0.96 [facility] Comment on above: Order Comment: Speci men Type: BLOOD SPECIMENOrdering Facility: [facility] Address: [address] [place] [address] Performed By: #### 2 777-1, 83921-8, 79133-5, 3015-3, 3024-7 ####[facility] LABORATORYCLIA [id number] [address] [place] ESTIMATED GLOMERULAR FILTRATION RATE 95 mL/min/1.73m??? Normal >=60 [facility] Comment on above: Order Comment: Speci men Type: BLOOD SPECIMENOrdering Facility: [facility] Address: [address] [place] [address] Result Comment: Mariely mated Glomerular Filtration Rate (eGFR) is calculated using the 2020 CKD-EPI creatinine equation. This equation utilizes serum creatinine, sex, and age as parameters. The creatinine assay has traceable calibration to isotope dilution-mass spectrometry. Refer to KDIGO guidelines for clinical interpretation. In patients with unstable renal function, e.g. those with acute kidney injury, the eGFR may not accurately reflect actual GFR. Performed By: #### 2 777-1, 53662-7, 09192-4, 3015-3, 3023-7 ####[facility] LABORATORYCLIA [id number] [place] [address] [place] Glucose [Mass/Vol] 111 mg/dL High 74-99 [facility] Comment on above: Order Comment: Cary lujan Type: BLOOD SPECIMENOrdering Facility: [facility] Address: [address] [place], [place] [address] Result Comment: The [place] [employer] (ADA) provides guidance for cutoff values for fasting glucose and random glucose. The ADA defines fasting as no caloric intake for at least 8 hours. Fasting plasma glucose results between 100 to 125 mg/dL indicate increased risk for diabetes (prediabetes).Fasting plasma glucose results greater than or equal to 126 mg/dL meet the criteria for diagnosis of diabetes. In the absence of unequivocal hyperglycemia, results should be confirmed by repeat testing. In a patient with classic symptoms of hyperglycemia or hyperglycemic crisis, random plasma glucose results greater than or equal to 200 mg/dL meet the criteria for diagnosis of diabetes.Reference: Standards of Medical Care in Diabetes 2016, [place] [employer]. Diabetes Care. 2016.39(Suppl 1). Performed By: #### 2 777-1, 37709-4, , 3, 7 ####[facility] LAB[facility]ATORYCLIA [id number] [place] [id number] [place] Potassium [Moles/Vol] 4.2 mmol/L Normal 3.7-5.1 [facility] Comment on above: Order Comment: Cary lujan Type: BLOOD SPECIMENOrdering Facility: [facility] Address: [address] [place] [address] Performed By: #### 2 777-1, 33817-2, 98741-7, 3015-3, 3023-7 ####[facility] LAB[facility]ATORYCLIA [id number] [place] [address] [place] Sodium [Moles/Vol] 138 mmol/L Normal 136-144 [facility] Comment on above: Order Comment: Speci men Type: BLOOD SPECIMENOrdering Facility: [facility] Address: [address] [place] [address] Performed By: #### 2 777-1, 56018-4, 45397-9, 3016-3, 3024-7 ####[facility]ATORYCLIA [id number] [address] [place] Urea nitrogen [Mass/Vol] 9 mg/dL Normal 7-21 [facility] Comment on above: Order Comment: Speci men Type: BLOOD SPECIMENOrdering Facility: [facility] Address: [address] [place] [address] Performed By: #### 2 777-1, 24969-7, 66589-7, 3016-3, 3024-7 ####[facility] LAB[facility]ATORYCLIA [id number] [address] STATES OF [facility] CASE MANAGEMon 12-24-2022 CASE MANAGEM Normal [facility] CBC panel Auto (Bld)on 12-24 Erythrocyte distribution width (RBC) [Ratio] 15.0 % Normal 11.5-15.0 [facility] Comment on above: Order Comment: Speci men Type: BLOOD SPECIMENOrdering Facility: [facility] Address: [address] [place] [address] Performed By: #### 5 8410-2 ####[facility]ATORYCLIA [id number] [address] STATES OF [facility] Hematocrit (Bld) [Volume fraction] 28.9 % Low 36.0-46.0 [facility] Comment on above: Order Comment: Speci men Type: BLOOD SPECIMENOrdering Facility: [facility] Address: [address] [place] [address] Performed By: #### 5 8410-2 ####[facility]ATORYCLIA [id number] [address] STATES OF [facility] Hemoglobin (Bld) [Mass/Vol] 9.1 g/dL Low 11.5-15.5 [facility] Comment on above: Order Comment: Speci men Type: BLOOD SPECIMENOrdering Facility: [facility] Address: [address] [place] [address] Performed By: #### 5 8410-2 ####[facility]ATORYCLIA [id number] [address] STATES [facility] MCH (RBC) [Entitic mass] 31.9 pg Normal 26.0-34.0 [facility] Comment on above: Order Comment: Speci men Type: BLOOD SPECIMENOrdering Facility: [facility] Address: [address] [place] [address] Performed By: #### 5 8410-2 ####[facility]ATORYCLIA [id number] [address] [place] MCHC (RBC) [Mass/Vol] 31.5 g/dL Normal 30.5-36.0 [facility] Comment on above: Order Comment: Speci men Type: BLOOD SPECIMENOrdering Facility: [facility] Address: [address] [place] [address] Performed By: #### 5 8410-2 ####[facility]ATORYCLIA [id number] [address] MCV (RBC) [Entitic vol] 101.4 fL High 80.0-100.0 [facility] Comment on above: Order Comment: Speci men Type: BLOOD SPECIMENOrdering Facility: [facility] Address: [address] [place] [address] Performed By: #### 5 8410-2 ####[facility]ORYCLIA [id number] [address] Nucleated RBC (Bld) [#/Vol] 10*3/uL Normal <0.01 [facility] Comment on above: Order Comment: Speci men Type: BLOOD SPECIMENOrdering Facility: [facility] Address: [address] [place] [address] Performed By: #### 5 8410-2 ####[facility]ATORYCLIA [id number] [place] [address] [place] Platelet mean volume (Bld) [Entitic vol] 11.6 fL Normal 9.0-12.7 [facility] Comment on above: Order Comment: Speci men Type: BLOOD SPECIMENOrdering Facility: [facility] Address: [address] [place] [address] Performed By: #### 5 8410-2 ####[facility]ATORYCLIA [id number] [place] [address] [place] Platelets (Bld) [#/Vol] 284 10*3/uL Normal 150-400 [facility] Comment on above: Order Comment: Speci men Type: BLOOD SPECIMENOrdering Facility: [facility] Address: [address] [place] [address] Performed By: #### 5 8410-2 ####[facility]ATORYCLIA [id number] [place] [address] [place] RBC (Bld) [#/Vol] 2.85 10*6/uL Low 3.90-5.20 [facility] Comment on above: Order Comment: Speci men Type: BLOOD SPECIMENOrdering Facility: [facility] Address: [address] [place] [address] Performed By: #### 5 8410-2 ####[facility]ATORYCLIA [id number] [place] [address] [place] WBC (Bld) [#/Vol] 8.78 10*3/uL Normal 3.70-11.00 [facility] Comment on above: Order Comment: Speci men Type: BLOOD SPECIMENOrdering Facility: [facility] Address: [address] [place] [address] Performed By: #### 5 8410-2 ####[facility]ATORYCLIA [id number] [address] [place] CONSULT PROGon 12-24-2022 CONSULT PROG Normal [facility] Magnesium SerPl-mCncon 12-24 Magnesium [Mass/Vol] 1.7 mg/dL Normal 1.7-2.3 [facility] Comment on above: Order Comment: Speci men Type: BLOOD SPECIMENOrdering Facility: [facility] Address: [address] [place] [address] Performed By: #### 2 777-1, 27622-7, 38969-0, 3016-3, 3024-7 ####[facility]ORYCLIA [id number] [place] [address] [place] NUTRITIONon 12-24-2022 NUTRITION Normal [facility] Phosphate SerPl-mCncon 12-24 Phosphate [Mass/Vol] 2.6 mg/dL Low 2.7-4.8 [facility] Comment on above: Order Comment: Speci men Type: BLOOD SPECIMENOrdering Facility: [facility] Address: [address] [place] [address] Performed By: #### 2 777-1, 19921-9, 67617-7, 6-3, 3024-7 ####[facility]ATORYCLIA [id number] [place] [address] [place] T4 Free SerPl-mCncon 023 Free T4 [Mass/Vol] 0.7 ng/dL Low 0.9-1.7 [facility] Comment on above: Order Comment: Speci men Type: BLOOD SPECIMENOrdering Facility: [facility] Address: [address] [place] [address] Performed By: #### 2 777-1, 79534-8, 90848-4, 6-3, 3024-7 ####[facility]ATORYCLIA [id number] [place] [address] [place] TSH SerPl-aCncon 12-24-2022 TSH Qn 5.090 m[IU]/L High 0.270-4.200 [facility] Comment on above: Order Comment: Speci men Type: BLOOD SPECIMENOrdering Facility: [facility] Address: [address] [place] [address] Performed By: #### 2 777-1, 46905-2, 57267-2, 3016-3, 3024-7 ####[facility]ORYCLIA [id number] [place] [address] [place] ALLIED HEALTHon 12-23-2022 ALLIED HEALTH Normal [facility] Basic metabolic 2000 panelon 12-23-2022 Anion gap [Moles/Vol] 7 mmol/L Low 9-18 [facility] Comment on above: Order Comment: Speci men Type: BLOOD SPECIMENOrdering Facility: [facility] Address: [address] [place] [address] Performed By: #### 2 4321-2, , 27704-13 ####[facility]ATORYCLIA [id number] [place] [address] [place] Calcium [Mass/Vol] 7.6 mg/dL Low 8.5-10.2 [facility] Comment on above: Order Comment: Speci men Type: BLOOD SPECIMENOrdering Facility: [facility] Address: [address] [place] [address] Performed By: #### 2 4321-2, , 2776-10 ####[facility]ORYCLIA [id number] [place] [address] [place] Chloride [Moles/Vol] 112 mmol/L High 97-105 [facility] Comment on above: Order Comment: Speci men Type: BLOOD SPECIMENOrdering Facility: [facility] Address: [address] [place] [address] Performed By: #### 2 4321-2, , 2776-10 ####[facility]ORYCLIA [id number] [place] [address] [place] CO2 [Moles/Vol] 20 mmol/L Low 22-30 [facility] Comment on above: Order Comment: Speci men Type: BLOOD SPECIMENOrdering Facility: [facility] Address: [address] [place] [address] Performed By: #### 2 4321-2, 74256-5, 2776-10 ####[facility]ATORYCLIA [id number] [place] [id number] [place] OF [facility] Creatinine [Mass/Vol] 0.63 mg/dL Normal 0.58-0.96 [facility] Comment on above: Order Comment: Speci men Type: BLOOD SPECIMENOrdering Facility: [facility] Address: [address] [place] [address] Performed By: #### 2 4321-2, , 2776-10 ####[facility]ATORYCLIA [id number] [address] OF [facility] ESTIMATED GLOMERULAR FILTRATION RATE 95 mL/min/1.73m??? Normal >=60 [facility] Comment on above: Order Comment: Cary lujan Type: BLOOD SPECIMENOrdering Facility: [facility] Address: [address] [place] [address] Result Comment: Mariely mated Glomerular Filtration Rate (eGFR) is calculated using the 2020 CKD-EPI creatinine equation. This equation utilizes serum creatinine, sex, and age as parameters. The creatinine assay has traceable calibration to isotope dilution-mass spectrometry. Refer to KDIGO guidelines for clinical interpretation. In patients with unstable renal function, e.g. those with acute kidney injury, the eGFR may not accurately reflect actual GFR. Performed By: #### 2 4321-2, , 2776-10 ####[facility]ATORYCLIA [id number] [address] [place] Glucose [Mass/Vol] 121 mg/dL High 74-99 [facility] Comment on above: Order Comment: [facility] Type: BLOOD SPECIMENOrdering Facility: [facility] Address: [address] [place] [address] Result Comment: The [place] [employer] (ADA) provides guidance for cutoff values for fasting glucose and random glucose. The ADA defines fasting as no caloric intake for at least 8 hours. Fasting plasma glucose results between 100 to 125 mg/dL indicate increased risk for diabetes (prediabetes).Fasting plasma glucose results greater than or equal to 126 mg/dL meet the criteria for diagnosis of diabetes. In the absence of unequivocal hyperglycemia, results should be confirmed by repeat testing. In a patient with classic symptoms of hyperglycemia or hyperglycemic crisis, random plasma glucose results greater than or equal to 200 mg/dL meet the criteria for diagnosis of diabetes.Reference: Standards of Medical Care in Diabetes 2016, [place] [employer]. Diabetes Care. 2016.39(Suppl 1). Performed By: #### 2 4321-2, , 2776-10 ####[facility]ATORYCLIA [id number] [address] STATES OF [facility] Potassium [Moles/Vol] 4.0 mmol/L Normal 3.7-5.1 [facility] Comment on above: Order Comment: Cary lujan Type: BLOOD SPECIMENOrdering Facility: [facility] Address: [address] [place] [address] Performed By: #### 2 4321-2, , 2776-10 ####[facility]ITALCLIA [id number] [address] STATES [facility] Sodium [Moles/Vol] 139 mmol/L Normal 136-144 [facility] Comment on above: Order Comment: Cary lujan Type: BLOOD SPECIMENOrdering Facility: [facility] Address: [address] [place] [address] Performed By: #### 2 4321-2, , 2776-10 ####[facility]ITALCLIA [id number] [address] STATES OF [facility] Urea nitrogen [Mass/Vol] 11 mg/dL Normal 7-21 [facility] Comment on above: Order Comment: Cary lujan Type: BLOOD SPECIMENOrdering Facility: [facility] Address: [address] [place] [address] Performed By: #### 2 4321-2, , 2776-10 ####[facility]ATORYCLIA [id number] [address] [place] CBC panel Auto (Bld)on 12-23 Erythrocyte distribution width (RBC) [Ratio] 14.7 % Normal 11.5-15.0 [facility] Comment on above: Order Comment: Speci men Type: BLOOD SPECIMENOrdering Facility: [facility] Address: [address] [place] [address] Performed By: #### 5 8410-2 ####[facility] LABORATORYCLIA [id number] [address] OF [facility] Hematocrit (Bld) [Volume fraction] 28.4 % Low 36.0-46.0 [facility] Comment on above: Order Comment: Speci men Type: BLOOD SPECIMENOrdering Facility: [facility] Address: [address] [place] [address] Performed By: #### 5 8410-2 ####[facility]ORYCLIA [id number] [address] [place] Hemoglobin (Bld) [Mass/Vol] 9.0 g/dL Low 11.5-15.5 [facility] Comment on above: Order Comment: Speci men Type: BLOOD SPECIMENOrdering Facility: [facility] Address: [address] [place] [address] Performed By: #### 5 8410-2 ####[facility]ORYCLIA [id number] [address] [place] MCH (RBC) [Entitic mass] 32.0 pg Normal 26.0-34.0 [facility] Comment on above: Order Comment: Speci men Type: BLOOD SPECIMENOrdering Facility: [facility] Address: [address] [place] [address] Performed By: #### 5 8410-2 ####[facility]ORYCLIA [id number] [address] [place] MCHC (RBC) [Mass/Vol] 31.7 g/dL Normal 30.5-36.0 [facility] Comment on above: Order Comment: Speci men Type: BLOOD SPECIMENOrdering Facility: [facility] Address: [address] [place] [address] Performed By: #### 5 8410-2 ####[facility]ORYCLIA [id number] [address] [place] MCV (RBC) [Entitic vol] 101.1 fL High 80.0-100.0 [facility] Comment on above: Order Comment: Speci men Type: BLOOD SPECIMENOrdering Facility: [facility] Address: [address] [place] [address] Performed By: #### 5 8410-2 ####[facility]ATORYCLIA [id number] [address] [place] Nucleated RBC (Bld) [#/Vol] 10*3/uL Normal <0.01 [facility] Comment on above: Order Comment: Speci men Type: BLOOD SPECIMENOrdering Facility: [facility] Address: [address] [place] [address] Performed By: #### 5 8410-2 ####[facility]ATORYCLIA [id number] [address] STATES [facility] Platelet mean volume (Bld) [Entitic vol] 12.1 fL Normal 9.0-12.7 [facility] Comment on above: Order Comment: Speci men Type: BLOOD SPECIMENOrdering Facility: [facility] Address: [address] [place] [address] Performed By: #### 5 8410-2 ####[facility]ORYCLIA [id number] [address] [place] Platelets (Bld) [#/Vol] 228 10*3/uL Normal 150-400 [facility] Comment on above: Order Comment: Speci men Type: BLOOD SPECIMENOrdering Facility: [facility] Address: [address] [place] [address] Performed By: #### 5 8410-2 ####[facility]ORYCLIA [id number] [address] [place] RBC (Bld) [#/Vol] 2.81 10*6/uL Low 3.90-5.20 [facility] Comment on above: Order Comment: Speci men Type: BLOOD SPECIMENOrdering Facility: [facility] Address: [address] [place] [address] Performed By: #### 5 8410-2 ####[facility]ATORYCLIA [id number] [place] [address] [place] WBC (Bld) [#/Vol] 8.51 10*3/uL Normal 3.70-11.00 [facility] Comment on above: Order Comment: Speci men Type: BLOOD SPECIMENOrdering Facility: [facility] Address: [address] [place] [address] Performed By: #### 5 8410-2 ####[facility]ORYCLIA [id number] [address] OF [facility] Magnesium SerPl-mCncon 12-23 Magnesium [Mass/Vol] 1.4 mg/dL Low 1.7-2.3 [facility] Comment on above: Order Comment: Speci men Type: BLOOD SPECIMENOrdering Facility: [facility] Address: [address] [place] [address] Performed By: #### 2 4321-2, 80127-6, 2776-10 ####[facility]ATORYCLIA [id number] [address] [place] Phosphate SerPl-mCncon 12-23 Phosphate [Mass/Vol] 2.1 mg/dL Low 2.7-4.8 [facility] Comment on above: Order Comment: Speci men Type: BLOOD SPECIMENOrdering Facility: [facility] Address: [address] [place] [address] Performed By: #### 2 4321-2, 28160-4, 2776-10 ####[facility]ATORYCLIA [id number] [place] [address] [place] XR CHEST 1V FRONTALon 2022 XR CHEST 1V FRONTAL Normal [facility] ALLIED HEALTHon 12-22-2022 ALLIED HEALTH Normal [facility] Basic metabolic 2000 panelon 12-22-2022 Anion gap [Moles/Vol] 6 mmol/L Low 9-18 [facility] Comment on above: Order Comment: Speci men Type: BLOOD SPECIMENOrdering Facility: [facility] Address: [address] [place] [address] Performed By: #### 2 777-1, , ####[facility]ATORYCLIA [id number] [place] [address] [place] Calcium [Mass/Vol] 7.4 mg/dL Low 8.5-10.2 [facility] Comment on above: Order Comment: Speci men Type: BLOOD SPECIMENOrdering Facility: [facility] Address: [address] [place] [address] Performed By: #### 2 777-1, , ####[facility]ATORYCLIA [id number] [place] [address] [place] Chloride [Moles/Vol] 111 mmol/L High 97-105 [facility] Comment on above: Order Comment: Speci men Type: BLOOD SPECIMENOrdering Facility: [facility] Address: [address] [place] [address] Performed By: #### 2 777-1, , ####[facility]ATORYCLIA [id number] [place] [address] [place] CO2 [Moles/Vol] 20 mmol/L Low 22-30 [facility] Comment on above: Order Comment: Speci men Type: BLOOD SPECIMENOrdering Facility: [facility] Address: [address] [place] [address] Performed By: #### 2 777-1, , ####[facility]ATORYCLIA [id number] [place] [address] [place] Creatinine [Mass/Vol] 0.61 mg/dL Normal 0.58-0.96 [facility] Comment on above: Order Comment: Speci men Type: BLOOD SPECIMENOrdering Facility: [facility] Address: [address] [place] [address] Performed By: #### 2 777-1, 60001-1, 73142-0 ####[facility] LABORATORYCLIA [id number] [place] [id number] [facility] ESTIMATED GLOMERULAR FILTRATION RATE 96 mL/min/1.73m??? Normal >=60 [facility] Comment on above: Order Comment: Cary lujan Type: BLOOD SPECIMENOrdering Facility: [facility] Address: [address] [place] [address] Result Comment: Mariely mated Glomerular Filtration Rate (eGFR) is calculated using the 2020 CKD-EPI creatinine equation. This equation utilizes serum creatinine, sex, and age as parameters. The creatinine assay has traceable calibration to isotope dilution-mass spectrometry. Refer to KDIGO guidelines for clinical interpretation. In patients with unstable renal function, e.g. those with acute kidney injury, the eGFR may not accurately reflect actual GFR. Performed By: #### 2 777-1, , ####[facility]CLIA [id number] [place] [address] [place] Glucose [Mass/Vol] 98 mg/dL Normal 74-99 [facility] Comment on above: Order Comment: Cary lujan Type: BLOOD SPECIMENOrdering Facility: [facility] Address: [address] [place] [address] Result Comment: The [place] [employer] (ADA) provides guidance for cutoff values for fasting glucose and random glucose. The ADA defines fasting as no caloric intake for at least 8 hours. Fasting plasma glucose results between 100 to 125 mg/dL indicate increased risk for diabetes (prediabetes).Fasting plasma glucose results greater than or equal to 126 mg/dL meet the criteria for diagnosis of diabetes. In the absence of unequivocal hyperglycemia, results should be confirmed by repeat testing. In a patient with classic symptoms of hyperglycemia or hyperglycemic crisis, random plasma glucose results greater than or equal to 200 mg/dL meet the criteria for diagnosis of diabetes.Reference: Standards of Medical Care in Diabetes 2016, [place] [employer]. Diabetes Care. 2016.39(Suppl 1). Performed By: #### 2 777-1, , 82286-7 ####[facility] LAB[facility]ATORYCLIA [id number] [place] [address] [place] Potassium [Moles/Vol] 4.1 mmol/L Normal 3.7-5.1 [facility] Comment on above: Order Comment: Speci men Type: BLOOD SPECIMENOrdering Facility: [facility] Address: [address] [place] [address] Performed By: #### 2 777-1, , 44448-2 ####[facility]ATORYCLIA [id number] [address] STATES OF [facility] Sodium [Moles/Vol] 137 mmol/L Normal 136-144 [facility] Comment on above: Order Comment: Speci men Type: BLOOD SPECIMENOrdering Facility: [facility] Address: [address] [place] [address] Performed By: #### 2 777-1, , 57279-2 ####[facility] LABORATORYCLIA [id number] [address] Urea nitrogen [Mass/Vol] 10 mg/dL Normal 7-21 [facility] Comment on above: Order Comment: Speci men Type: BLOOD SPECIMENOrdering Facility: [facility] Address: [address] [place] [address] Performed By: #### 2 777-1, , 71434-7 ####[facility] LABORATORYCLIA [id number] [address] CBC panel Auto (Bld)on 12-22 Erythrocyte distribution width (RBC) [Ratio] 14.9 % Normal 11.5-15.0 [facility] Comment on above: Order Comment: Speci men Type: BLOOD SPECIMENOrdering Facility: [facility] Address: [address] [place] [address] Performed By: #### 5 8410-2 ####[facility] LABORATORYCLIA [id number] [address] Hematocrit (Bld) [Volume fraction] 27.6 % Low 36.0-46.0 [facility] Comment on above: Order Comment: Speci men Type: BLOOD SPECIMENOrdering Facility: [facility] Address: [address] [place] [address] Performed By: #### 5 8410-2 ####[facility] LABORATORYCLIA [id number] [address] STATES OF [facility] Hemoglobin (Bld) [Mass/Vol] 8.9 g/dL Low 11.5-15.5 [facility] Comment on above: Order Comment: Speci men Type: BLOOD SPECIMENOrdering Facility: [facility] Address: [address] [place] [address] Performed By: #### 5 8410-2 ####[facility]ORATORYCLIA [id number] [address] [place] MCH (RBC) [Entitic mass] 32.7 pg Normal 26.0-34.0 [facility] Comment on above: Order Comment: Speci men Type: BLOOD SPECIMENOrdering Facility: [facility] Address: [address] [place] [address] Performed By: #### 5 8410-2 ####[facility]ORATORYCLIA [id number] [address] [place] MCHC (RBC) [Mass/Vol] 32.2 g/dL Normal 30.5-36.0 [facility] Comment on above: Order Comment: Speci men Type: BLOOD SPECIMENOrdering Facility: [facility] Address: [address] [place] [address] Performed By: #### 5 8410-2 ####[facility]ATORYCLIA [id number] [address] [place] MCV (RBC) [Entitic vol] 101.5 fL High 80.0-100.0 [facility] Comment on above: Order Comment: Speci men Type: BLOOD SPECIMENOrdering Facility: [facility] Address: [address] [place] [address] Performed By: #### 5 8410-2 ####[facility]IA [id number] [address] [place] Nucleated RBC (Bld) [#/Vol] 10*3/uL Normal <0.01 [facility] Comment on above: Order Comment: Speci men Type: BLOOD SPECIMENOrdering Facility: [facility] Address: [address] [place] [address] Performed By: #### 5 8410-2 ####[facility]ATORYCLIA [id number] [address] [place] Platelet mean volume (Bld) [Entitic vol] 12.9 fL High 9.0-12.7 [facility] Comment on above: Order Comment: Speci men Type: BLOOD SPECIMENOrdering Facility: [facility] Address: [address] [place] [address] Performed By: #### 5 8410-2 ####[facility]ATORYCLIA [id number] [address] [place] Platelets (Bld) [#/Vol] 180 10*3/uL Normal 150-400 [facility] Comment on above: Order Comment: Speci men Type: BLOOD SPECIMENOrdering Facility: [facility] Address: [address] [place] [address] Performed By: #### 5 8410-2 ####[facility]ATORYCLIA [id number] [place] [address] [place] RBC (Bld) [#/Vol] 2.72 10*6/uL Low 3.90-5.20 [facility] Comment on above: Order Comment: Speci men Type: BLOOD SPECIMENOrdering Facility: [facility] Address: [address] [place] [address] Performed By: #### 5 8410-2 ####[facility]ATORYCLIA [id number] [address] [place] WBC (Bld) [#/Vol] 9.09 10*3/uL Normal 3.70-11.00 [facility] Comment on above: Order Comment: Speci men Type: BLOOD SPECIMENOrdering Facility: [facility] Address: [address] [place] [address] Performed By: #### 5 8410-2 ####[facility]ORATORYCLIA [id number] [place] [id number] [facility] - Microbiology an d Antimicrobial susceptibilityOrdered By: Dr. Han on 12-22-2022 Bacteria identified Cx Nom (Bld) No growth in 5 days. [facility] Magnesium SerPl-mCncon 12-22 Magnesium [Mass/Vol] 1.7 mg/dL Normal 1.7-2.3 [facility] Comment on above: Order Comment: Cary lujan Type: BLOOD SPECIMENOrdering Facility: [facility] Address: [address] [place] [address] Performed By: #### 2 777-1, 00231-4, 67567-3 ####[facility]ATORYCLIA [id number] [address] PT panel Coag (PPP)on 2022 INR Coag (PPP) [Relative time] {INR} Low 0.9-1.3 [facility] Comment on above: Order Comment: Cary lujan Type: BLOOD SPECIMENOrdering Facility: [facility] Address: [address] [place] [address] Result Comment: Adele min K Antagonist (VKA) Therapeutic Range: INR 2 to 3 (Target INR of 2.5)Note: For patients treated with VKA drugs, such as warfarin, the [place] [employer] 2012 Guideline recommends a therapeutic INR range of 2 to 3 (target INR of 2.5). This recommendation includes high-risk patients with antiphospholipid syndrome with previous arterial or venous thromboembolism, current-generation mechanical or bioprosthetic aortic heart valve replacement.Note: Patients with mechanical aortic valve replacement and additional risk factors for thromboembolic events (atrial fibrillation, previous thromboembolism, LV dysfunction, hypercoagulable conditions) or an older generation mechanical AVR (i.e., ball in-Cage) or any mechanical MVR should have a INR therapeutic range of 2.5 to 3.5 (target INR of 3).Freddy TAVAREZ, et al. Chest 2012, 141:7S-47SJohn RA, et al. [facility] 2017, 70: 252-289 Performed By: #### 1 4979-9, 04932-2 ####[facility]ORATORYCLIA [id number] [place] [address] [place] PT Coag (PPP) [Time] 9.9 s Normal 9.7-13.0 [facility] Comment on above: Order Comment: Speci men Type: BLOOD SPECIMENOrdering Facility: [facility] Address: [address] [place] [address] Performed By: #### 1 4979-9, 52304-6 ####[facility]ATORYCLIA [id number] [address] [place] Phosphate SerPl-mCncon 12-22 Phosphate [Mass/Vol] 2.1 mg/dL Low 2.7-4.8 [facility] Comment on above: Order Comment: Speci men Type: BLOOD SPECIMENOrdering Facility: [facility] Address: [address] [place] [address] Performed By: #### 2 777-1, 83959-4, 11324-7 ####[facility]ITALCLIA [id number] [place] [address] [place] aPTT PPPon 12-22-2022 aPTT Coag (PPP) [Time] 25.2 s Normal 23.0-32.4 [facility] Comment on above: Order Comment: Speci men Type: BLOOD SPECIMENOrdering Facility: [facility] Address: [address] [place] [address] Performed By: #### 1 4979-9, 54039-8 ####[facility]ATORYCLIA [id number] [place] [address] [place] Bacteria Spec Resp Culton Bacteria identified Respiratory culture Nom (Unsp spec) Abnormal [facility] Comment on above: Performed By: #### 3 2355-0 ####[facility]ATORYCLIA [id number] [place] [address] [place] Basic metabolic 2000 panelon 12-21-2022 Anion gap [Moles/Vol] 9 mmol/L Normal 9-18 [facility] Comment on above: Order Comment: Speci men Type: BLOOD SPECIMENOrdering Facility: [facility] Address: [address] [place] [address] Performed By: #### 2 4321-2, , 2776-10 ####[facility]ATORYCLIA [id number] [place] [address] [place] Calcium [Mass/Vol] 7.5 mg/dL Low 8.5-10.2 [facility] Comment on above: Order Comment: Speci men Type: BLOOD SPECIMENOrdering Facility: [facility] Address: [address] [place] [address] Performed By: #### 2 4321-2, , 2776-10 ####[facility]ATORYCLIA [id number] [place] [address] [place] Chloride [Moles/Vol] 111 mmol/L High 97-105 [facility] Comment on above: Order Comment: Speci men Type: BLOOD SPECIMENOrdering Facility: [facility] Address: [address] [place] [address] Performed By: #### 2 4321-2, , 2776-10 ####[facility]ATORYCLIA [id number] [place] [address] [place] CO2 [Moles/Vol] 21 mmol/L Low 22-30 [facility] Comment on above: Order Comment: Speci men Type: BLOOD SPECIMENOrdering Facility: [facility] Address: [address] [place] [address] Performed By: #### 2 4321-2, , 2776-10 ####[facility]ATORYCLIA [id number] [place] [address] [place] Creatinine [Mass/Vol] 0.59 mg/dL Normal 0.58-0.96 [facility] Comment on above: Order Comment: Cary lujan Type: BLOOD SPECIMENOrdering Facility: [facility] Address: [place] [facility] [place] [id number] Performed By: #### 2 4321-2, , 2776-10 ####[facility]ORATORYCLIA [id number] [place] [id number] [place] ESTIMATED GLOMERULAR FILTRATION RATE 96 mL/min/1.73m??? Normal >=60 [facility] Comment on above: Order Comment: Cary lujan Type: BLOOD SPECIMENOrdering Facility: [facility] Address: [place] [address] Result Comment: Mariely mated Glomerular Filtration Rate (eGFR) is calculated using the 2020 CKD-EPI creatinine equation. This equation utilizes serum creatinine, sex, and age as parameters. The creatinine assay has traceable calibration to isotope dilution-mass spectrometry. Refer to KDIGO guidelines for clinical interpretation. In patients with unstable renal function, e.g. those with acute kidney injury, the eGFR may not accurately reflect actual GFR. Performed By: #### 2 4321-2, , 2776-10 ####[facility]ATORYCLIA [id number] [place] [address] [place] Glucose [Mass/Vol] 124 mg/dL High 74-99 [facility] Comment on above: Order Comment: Cary lujan Type: BLOOD SPECIMENOrdering Facility: [facility] Address: [place] [address] Result Comment: The [place] [employer] (ADA) provides guidance for cutoff values for fasting glucose and random glucose. The ADA defines fasting as no caloric intake for at least 8 hours. Fasting plasma glucose results between 100 to 125 mg/dL indicate increased risk for diabetes (prediabetes).Fasting plasma glucose results greater than or equal to 126 mg/dL meet the criteria for diagnosis of diabetes. In the absence of unequivocal hyperglycemia, results should be confirmed by repeat testing. In a patient with classic symptoms of hyperglycemia or hyperglycemic crisis, random plasma glucose results greater than or equal to 200 mg/dL meet the criteria for diagnosis of diabetes.Reference: Standards of Medical Care in Diabetes 2016, [place] [employer]. Diabetes Care. 2016.39(Suppl 1). Performed By: #### 2 4321-2, 38509-6, 2777- ####[facility]ATORYCLIA [id number] [place] [address] [place] Potassium [Moles/Vol] 3.6 mmol/L Low 3.7-5.1 [facility] Comment on above: Order Comment: Speci men Type: BLOOD SPECIMENOrdering Facility: [facility] Address: [address] [place] [address] Performed By: #### 2 4321-2, , 2776- ####[facility]ATORYCLIA [id number] [address] STATES OF [facility] Sodium [Moles/Vol] 141 mmol/L Normal 136-144 [facility] Comment on above: Order Comment: Speci men Type: BLOOD SPECIMENOrdering Facility: [facility] Address: [address] [place] [address] Performed By: #### 2 4321-2, , 2776-10 ####[facility]ATORYCLIA [id number] [address] [place] Urea nitrogen [Mass/Vol] 12 mg/dL Normal 7-21 [facility] Comment on above: Order Comment: Speci men Type: BLOOD SPECIMENOrdering Facility: [facility] Address: [address] [place] [address] Performed By: #### 2 4321-2, , 2776-10 ####[facility]ATORYCLIA [id number] [address] [place] CASE MANAGEMon 12-21-2022 CASE MANAGEM Normal [facility] CBC panel Auto (Bld)on 12-21 Erythrocyte distribution width (RBC) [Ratio] 14.6 % Normal 11.5-15.0 [facility] Comment on above: Order Comment: Speci men Type: BLOOD SPECIMENOrdering Facility: [facility] Address: [address] [place] [address] Performed By: #### 5 8410-2 ####[facility]ATORYCLIA [id number] [address] Hematocrit (Bld) [Volume fraction] 27.3 % Low 36.0-46.0 [facility] Comment on above: Order Comment: Speci men Type: BLOOD SPECIMENOrdering Facility: [facility] Address: [address] [place] [address] Performed By: #### 5 8410-2 ####[facility]ATORYCLIA [id number] [address] OF [facility] Hemoglobin (Bld) [Mass/Vol] 9.0 g/dL Low 11.5-15.5 [facility] Comment on above: Order Comment: Speci men Type: BLOOD SPECIMENOrdering Facility: [facility] Address: [address] [place] [address] Performed By: #### 5 8410-2 ####[facility]ATORYCLIA [id number] [address] MCH (RBC) [Entitic mass] 32.8 pg Normal 26.0-34.0 [facility] Comment on above: Order Comment: Speci men Type: BLOOD SPECIMENOrdering Facility: [facility] Address: [address] [place] [address] Performed By: #### 5 8410-2 ####[facility]ATORYCLIA [id number] [address] [place] MCHC (RBC) [Mass/Vol] 33.0 g/dL Normal 30.5-36.0 [facility] Comment on above: Order Comment: Speci men Type: BLOOD SPECIMENOrdering Facility: [facility] Address: [address] [place] [address] Performed By: #### 5 8410-2 ####[facility]ATORYCLIA [id number] [address] [place] MCV (RBC) [Entitic vol] 99.6 fL Normal 80.0-100.0 [facility] Comment on above: Order Comment: Speci men Type: BLOOD SPECIMENOrdering Facility: [facility] Address: [address] [place] [address] Performed By: #### 5 8410-2 ####[facility]ATORYCLIA [id number] [address] [place] Nucleated RBC (Bld) [#/Vol] 10*3/uL Normal <0.01 [facility] Comment on above: Order Comment: Speci men Type: BLOOD SPECIMENOrdering Facility: [facility] Address: [address] [place] [address] Performed By: #### 5 8410-2 ####[facility]ATORYCLIA [id number] [place] [address] [place] Platelet mean volume (Bld) [Entitic vol] 12.9 fL High 9.0-12.7 [facility] Comment on above: Order Comment: Speci men Type: BLOOD SPECIMENOrdering Facility: [facility] Address: [address] [place] [address] Performed By: #### 5 8410-2 ####[facility]ATORYCLIA [id number] [address] [place] Platelets (Bld) [#/Vol] 140 10*3/uL Low 150-400 [facility] Comment on above: Order Comment: Speci men Type: BLOOD SPECIMENOrdering Facility: [facility] Address: [address] [place] [address] Performed By: #### 5 8410-2 ####[facility]ATORYCLIA [id number] [place] [address] [place] RBC (Bld) [#/Vol] 2.74 10*6/uL Low 3.90-5.20 [facility] Comment on above: Order Comment: Speci men Type: BLOOD SPECIMENOrdering Facility: [facility] Address: [address] [place] [address] Performed By: #### 5 8410-2 ####[facility]ORYCLIA [id number] [place] [address] [place] WBC (Bld) [#/Vol] 9.04 10*3/uL Normal 3.70-11.00 [facility] Comment on above: Order Comment: Cary lujan Type: BLOOD SPECIMENOrdering Facility: [facility] Address: [address] [place] [address] Performed By: #### 5 8410-2 ####[facility]ATORYCLIA [id number] [address] [place] CONSULT PROGon 12-21-2022 CONSULT PROG Normal [facility] CONSULT PROG Normal [facility] Magnesium SerPl-mCncon 12-21 Magnesium [Mass/Vol] 1.8 mg/dL Normal 1.7-2.3 [facility] Comment on above: Order Comment: Cary lujan Type: BLOOD SPECIMENOrdering Facility: [facility] Address: [address] [place] [address] Performed By: #### 2 4321-2, 81257-0, 2777-1 ####[facility]ORYCLIA [id number] [address] NURSING PROGon 12-21-2022 NURSING PROG Normal [facility] NURSING PROG Normal [facility] NURSING PROG Normal [facility] PT panel Coag (PPP)on 2022 INR Coag (PPP) [Relative time] {INR} Low 0.9-1.3 [facility] Comment on above: Order Comment: Cary lujan Type: BLOOD SPECIMENOrdering Facility: [facility] Address: [address] [place] [address] Result Comment: Adele min K Antagonist (VKA) Therapeutic Range: INR 2 to 3 (Target INR of 2.5)Note: For patients treated with VKA drugs, such as warfarin, the [place] [employer] 2012 Guideline recommends a therapeutic INR range of 2 to 3 (target INR of 2.5). This recommendation includes high-risk patients with antiphospholipid syndrome with previous arterial or venous thromboembolism, current-generation mechanical or bioprosthetic aortic heart valve replacement.Note: Patients with mechanical aortic valve replacement and additional risk factors for thromboembolic events (atrial fibrillation, previous thromboembolism, LV dysfunction, hypercoagulable conditions) or an older generation mechanical AVR (i.e., ball in-Cage) or any mechanical MVR should have a INR therapeutic range of 2.5 to 3.5 (target INR of 3).Freddy GH, et al. Chest 2012, 141:7S-47SNishimura RA, et al. [facility] 2017, 70: 252-289 Performed By: #### 3 4528-0, 81071-0 ####[facility]ATORYCLIA [id number] [place] [address] [place] PT Coag (PPP) [Time] 10.0 s Normal 9.7-13.0 [facility] Comment on above: Order Comment: Cary lujan Type: BLOOD SPECIMENOrdering Facility: [facility] Address: [address] [place] [address] Performed By: #### 3 4528-0, 83916-7 ####[facility]CLIA [id number] [place] [address] [place] Phenobarb SerPl-ncon 12-21 PHENobarbital [Mass/Vol] 25.5 ug/mL Normal 10.0-40.0 [facility] Comment on above: Order Comment: Cary lujan Type: BLOOD SPECIMENOrdering Facility: [facility] Address: [address] [place] [address] Result Comment: Refe rence ranges and high/low indicator flags are provided as general guidelines only. The treating physician must determine appropriate target levels/dosing based on the specific clinical situation. Performed By: #### 3 948-7 ####[facility]ATORYCLIA [id number] [place] [address] [place] Phosphate SerPl-mCncon 12-21 Phosphate [Mass/Vol] 2.1 mg/dL Low 2.7-4.8 [facility] Comment on above: Order Comment: Cary lujan Type: BLOOD SPECIMENOrdering Facility: [facility] Address: [address] [place] [address] Performed By: #### 2 4321-2, 48437-2, 277-1 ####[facility]ATORYCLIA [id number] [address] OF [facility] aPTT PPPon 12-21-2022 aPTT Coag (PPP) [Time] 24.4 s Normal 23.0-32.4 [facility] Comment on above: Order Comment: Speci men Type: BLOOD SPECIMENOrdering Facility: [facility] Address: [address] [place] [address] Performed By: #### 3 4528-0, 12331-1 ####[facility]ATORYCLIA [id number] [address] STATES OF [facility] Bacteria CSF Culton 12-21-19 23 Bacteria identified Cx Nom (CSF) CULTURE, CSF: No growth 5 days GRAM STAIN: No organisms seen No Polymorphonuclear Leukocytes Rare Epithelial cells Normal [facility] Comment on above: Performed By: #### 6 06-4 ####[facility]ATORYCLIA [id number] [address] [place] Basic metabolic 2000 panelon 12-20-2022 Anion gap [Moles/Vol] 9 mmol/L Normal 9-18 [facility] Comment on above: Order Comment: Speci men Type: BLOOD SPECIMENOrdering Facility: [facility] Address: [address] [place] [address] Performed By: #### 5 0190-8, 38423-8, 277-1, 2276-01, ####[facility]ATORYCLIA [id number] [place] [address] [place] Calcium [Mass/Vol] 7.8 mg/dL Low 8.5-10.2 [facility] Comment on above: Order Comment: Speci men Type: BLOOD SPECIMENOrdering Facility: [facility] Address: [address] [place] [address] Performed By: #### 5 0190-8, 99341-0, 277-1, 2276-01, ####[facility]ORATORYCLIA [id number] [place] [address] [place] Chloride [Moles/Vol] 110 mmol/L High 97-105 [facility] Comment on above: Order Comment: Speci men Type: BLOOD SPECIMENOrdering Facility: [facility] Address: [address] [place] [address] Performed By: #### 5 0190-8, 85243-0, 2777-1, 2276-01, ####[facility]ATORYCLIA [id number] [place] [address] [place] CO2 [Moles/Vol] 22 mmol/L Normal 22-30 [facility] Comment on above: Order Comment: Speci men Type: BLOOD SPECIMENOrdering Facility: [facility] Address: [address] [place] [address] Performed By: #### 5 0190-8, 75637-6, 2777-1, 2276-01, ####[facility]ATORYCLIA [id number] [place] [id number] [place] Creatinine [Mass/Vol] 0.57 mg/dL Low 0.58-0.96 [facility] Comment on above: Order Comment: Speci men Type: BLOOD SPECIMENOrdering Facility: [facility] Address: [address] [place] [address] Performed By: #### 5 0190-8, 66097-8, 277-1, 2276-01, ####[facility]ORYCLIA [id number] [place] [address] [place] ESTIMATED GLOMERULAR FILTRATION RATE 97 mL/min/1.73m??? Normal >=60 [facility] Comment on above: Order Comment: Speci men Type: BLOOD SPECIMENOrdering Facility: [facility] Address: [address] [place] [address] Result Comment: Mariely mated Glomerular Filtration Rate (eGFR) is calculated using the 2020 CKD-EPI creatinine equation. This equation utilizes serum creatinine, sex, and age as parameters. The creatinine assay has traceable calibration to isotope dilution-mass spectrometry. Refer to KDIGO guidelines for clinical interpretation. In patients with unstable renal function, e.g. those with acute kidney injury, the eGFR may not accurately reflect actual GFR. Performed By: #### 5 0190-8, 45893-3, 7-1, 2275-, ####[facility]ATORYCLIA [id number] [place] [id number] [place] Glucose [Mass/Vol] 106 mg/dL High 74-99 [facility] Comment on above: Order Comment: Cary lujan Type: BLOOD SPECIMENOrdering Facility: [facility] Address: [address] [place] [address] Result Comment: The [place] [employer] (ADA) provides guidance for cutoff values for fasting glucose and random glucose. The ADA defines fasting as no caloric intake for at least 8 hours. Fasting plasma glucose results between 100 to 125 mg/dL indicate increased risk for diabetes (prediabetes).Fasting plasma glucose results greater than or equal to 126 mg/dL meet the criteria for diagnosis of diabetes. In the absence of unequivocal hyperglycemia, results should be confirmed by repeat testing. In a patient with classic symptoms of hyperglycemia or hyperglycemic crisis, random plasma glucose results greater than or equal to 200 mg/dL meet the criteria for diagnosis of diabetes.Reference: Standards of Medical Care in Diabetes 2016, [place] [employer]. Diabetes Care. 2016.39(Suppl 1). Performed By: #### 5 0190-8, 54281-3, 2776-, 2276-01, ####[facility] LABORATORYCLIA [id number] [place] [id number] [place] Potassium [Moles/Vol] 3.2 mmol/L Low 3.7-5.1 [facility] Comment on above: Order Comment: Cary lujan Type: BLOOD SPECIMENOrdering Facility: [facility] Address: [place] [place] [id number] Performed By: #### 5 0190-8, 24577-5, 7-1, 2275-, ####[facility]ATORYCLIA [id number] [place] [address] [place] Sodium [Moles/Vol] 141 mmol/L Normal 136-144 [facility] Comment on above: Order Comment: Speci men Type: BLOOD SPECIMENOrdering Facility: [facility] Address: [address] [address] Performed By: #### 5 0190-8, 10252-1, 2777-1, 6-4, 50588-6 ####[facility]ATORYCLIA [id number] [place] [address] [place] Urea nitrogen [Mass/Vol] 18 mg/dL Normal 7-21 [facility] Comment on above: Order Comment: Speci men Type: BLOOD SPECIMENOrdering Facility: [facility] Address: [address] [place] [address] Performed By: #### 5 0190-8, 15657-5, 2777-1, 2275-4, 83255-8 ####[facility]ORATORYCLIA [id number] [address] [place] CASE MANAGEMon 12-20-2022 CASE MANAGEM Normal [facility] CASE MGT INIT ASSESon 2022 CASE MGT INIT ASSES Normal [facility] CBC W Auto Differential pane l (Bld)on 12-20-2022 Basophils (Bld) [#/Vol] 10*3/uL Normal <0.11 [facility] Comment on above: Order Comment: Speci men Type: BLOOD SPECIMENOrdering Facility: [facility] Address: [address] [address] Performed By: #### 5 7021-8 ####[facility]ORYCLIA [id number] [address] [place] Basophils/100 WBC (Bld) 0.1 % Normal [facility] Comment on above: Order Comment: Speci men Type: BLOOD SPECIMENOrdering Facility: [facility] Address: [address] [place] [address] Performed By: #### 5 7021-8 ####[facility]ORYCLIA [id number] [address] Differential cell count method Nom (Bld) Auto Normal [facility] Comment on above: Order Comment: Speci men Type: BLOOD SPECIMENOrdering Facility: [facility] Address: [address] [place] [address] Performed By: #### 5 7021-8 ####[facility]ORYCLIA [id number] [address] [place] Eosinophils (Bld) [#/Vol] 0.11 10*3/uL Normal <0.46 [facility] Comment on above: Order Comment: Speci men Type: BLOOD SPECIMENOrdering Facility: [facility] Address: [address] [place] [address] Performed By: #### 5 7021-8 ####[facility]ATORYCLIA [id number] [address] Eosinophils/100 WBC (Bld) 1.4 % Normal [facility] Comment on above: Order Comment: Speci men Type: BLOOD SPECIMENOrdering Facility: [facility] Address: [address] [place] [address] Performed By: #### 5 7021-8 ####[facility]ATORYCLIA [id number] [address] Erythrocyte distribution width (RBC) [Ratio] 14.4 % Normal 11.5-15.0 [facility] Comment on above: Order Comment: Speci men Type: BLOOD SPECIMENOrdering Facility: [facility] Address: [address] [place] [address] Performed By: #### 5 7021-8 ####[facility]ATORYCLIA [id number] [address] Hematocrit (Bld) [Volume fraction] 28.0 % Low 36.0-46.0 [facility] Comment on above: Order Comment: Speci men Type: BLOOD SPECIMENOrdering Facility: [facility] Address: [address] [place] [address] Performed By: #### 5 7021-8 ####[facility]ATORYCLIA [id number] [place] [address] [place] Hemoglobin (Bld) [Mass/Vol] 9.0 g/dL Low 11.5-15.5 [facility] Comment on above: Order Comment: Speci men Type: BLOOD SPECIMENOrdering Facility: [facility] Address: [address] [place] [address] Performed By: #### 5 7021-8 ####[facility]ATORYCLIA [id number] [place] [address] [place] Immature granulocytes (Bld) [#/Vol] 0.05 10*3/uL Normal <0.10 [facility] Comment on above: Order Comment: Speci men Type: BLOOD SPECIMENOrdering Facility: [facility] Address: [address] [place] [address] Performed By: #### 5 7021-8 ####[facility]ORYCLIA [id number] [address] [place] Immature granulocytes/100 WBC (Bld) 0.6 % Normal [facility] Comment on above: Order Comment: Speci men Type: BLOOD SPECIMENOrdering Facility: [facility] Address: [address] [place] [address] Performed By: #### 5 7021-8 ####[facility]ORYCLIA [id number] [place] [address] [place] Lymphocytes (Bld) [#/Vol] 1.03 10*3/uL Normal 1.00-4.00 [facility] Comment on above: Order Comment: Speci men Type: BLOOD SPECIMENOrdering Facility: [facility] Address: [address] [place] [address] Performed By: #### 5 7021-8 ####[facility]ATORYCLIA [id number] [address] [place] Lymphocytes/100 WBC (Bld) 12.9 % Normal [facility] Comment on above: Order Comment: Speci men Type: BLOOD SPECIMENOrdering Facility: [facility] Address: [address] [address] Performed By: #### 5 7021-8 ####[facility]ORYCLIA [id number] [address] MCH (RBC) [Entitic mass] 32.5 pg Normal 26.0-34.0 [facility] Comment on above: Order Comment: Speci men Type: BLOOD SPECIMENOrdering Facility: [facility] Address: [address] [place] [address] Performed By: #### 5 7021-8 ####[facility]ORYCLIA [id number] [address] [place] MCHC (RBC) [Mass/Vol] 32.1 g/dL Normal 30.5-36.0 [facility] Comment on above: Order Comment: Speci men Type: BLOOD SPECIMENOrdering Facility: [facility] Address: [address] [place] [address] Performed By: #### 5 7021-8 ####[facility]ORYCLIA [id number] [address] [place] MCV (RBC) [Entitic vol] 101.1 fL High 80.0-100.0 [facility] Comment on above: Order Comment: Speci men Type: BLOOD SPECIMENOrdering Facility: [facility] Address: [address] [place] [address] Performed By: #### 5 7021-8 ####[facility]ATORYCLIA [id number] [address] OF [facility] Monocytes (Bld) [#/Vol] 0.93 10*3/uL High <0.87 [facility] Comment on above: Order Comment: Speci men Type: BLOOD SPECIMENOrdering Facility: [facility] Address: [address] [place] [address] Performed By: #### 5 7021-8 ####[facility]ORYCLIA [id number] [place] [address] [place] Monocytes/100 WBC (Bld) 11.7 % Normal [facility] Comment on above: Order Comment: Speci men Type: BLOOD SPECIMENOrdering Facility: [facility] Address: [address] [place] [address] Performed By: #### 5 7021-8 ####[facility]ORYCLIA [id number] [place] [address] [place] Neutrophils (Bld) [#/Vol] 5.83 10*3/uL Normal 1.45-7.50 [facility] Comment on above: Order Comment: Speci men Type: BLOOD SPECIMENOrdering Facility: [facility] Address: [address] [place] [address] Performed By: #### 5 7021-8 ####[facility]ORYCLIA [id number] [place] [address] [place] Neutrophils/100 WBC (Bld) 73.3 % Normal [facility] Comment on above: Order Comment: Speci men Type: BLOOD SPECIMENOrdering Facility: [facility] Address: [address] [place] [address] Performed By: #### 5 7021-8 ####[facility]ORYCLIA [id number] [place] [address] [place] Nucleated RBC (Bld) [#/Vol] 0.02 10*3/uL High <0.01 [facility] Comment on above: Order Comment: Speci men Type: BLOOD SPECIMENOrdering Facility: [facility] Address: [address] [place] [address] Performed By: #### 5 7021-8 ####[facility]ORYCLIA [id number] [address] [place] Nucleated RBC/100 WBC (Bld) [Ratio] 0.3 /100 WBC Normal [facility] Comment on above: Order Comment: Speci men Type: BLOOD SPECIMENOrdering Facility: [facility] Address: [address] [place] [address] Performed By: #### 5 7021-8 ####[facility]ORYCLIA [id number] [address] STATES OF [facility] Platelet mean volume (Bld) [Entitic vol] 12.4 fL Normal 9.0-12.7 [facility] Comment on above: Order Comment: Speci men Type: BLOOD SPECIMENOrdering Facility: [facility] Address: [address] [place] [address] Performed By: #### 5 7021-8 ####[facility]ORYCLIA [id number] [address] [place] Platelets (Bld) [#/Vol] 79 10*3/uL Low 150-400 [facility] Comment on above: Order Comment: Speci men Type: BLOOD SPECIMENOrdering Facility: [facility] Address: [address] [place] [address] Result Comment: No c lot detected. Performed By: #### 5 7021-8 ####[facility]ORYCLIA [id number] [address] RBC (Bld) [#/Vol] 2.77 10*6/uL Low 3.90-5.20 [facility] Comment on above: Order Comment: Speci men Type: BLOOD SPECIMENOrdering Facility: [facility] Address: [address] [place] [address] Performed By: #### 5 7021-8 ####[facility]ORYCLIA [id number] [address] [place] WBC (Bld) [#/Vol] 7.96 10*3/uL Normal 3.70-11.00 [facility] Comment on above: Order Comment: Speci men Type: BLOOD SPECIMENOrdering Facility: [facility] Address: [address] [place] [address] Performed By: #### 5 7021-8 ####[facility]ORYCLIA [id number] [address] CBC panel Auto (Bld)on 12-20 Erythrocyte distribution width (RBC) [Ratio] 14.4 % Normal 11.5-15.0 [facility] Comment on above: Order Comment: Speci men Type: BLOOD SPECIMENOrdering Facility: [facility] Address: [address] [place] [address] Performed By: #### 5 8410-2 ####[facility]ATORYCLIA [id number] [address] OF [facility] Hematocrit (Bld) [Volume fraction] 27.1 % Low 36.0-46.0 [facility] Comment on above: Order Comment: Speci men Type: BLOOD SPECIMENOrdering Facility: [facility] Address: [address] [place] [address] Performed By: #### 5 8410-2 ####[facility]ORYCLIA [id number] [address] [place] Hemoglobin (Bld) [Mass/Vol] 8.9 g/dL Low 11.5-15.5 [facility] Comment on above: Order Comment: Speci men Type: BLOOD SPECIMENOrdering Facility: [facility] Address: [address] [place] [address] Performed By: #### 5 8410-2 ####[facility]ORYCLIA [id number] [address] [place] MCH (RBC) [Entitic mass] 32.7 pg Normal 26.0-34.0 [facility] Comment on above: Order Comment: Speci men Type: BLOOD SPECIMENOrdering Facility: [facility] Address: [address] [place] [address] Performed By: #### 5 8410-2 ####[facility]ORYCLIA [id number] [address] [place] MCHC (RBC) [Mass/Vol] 32.8 g/dL Normal 30.5-36.0 [facility] Comment on above: Order Comment: Speci men Type: BLOOD SPECIMENOrdering Facility: [facility] Address: [address] [place] [address] Performed By: #### 5 8410-2 ####[facility]ORYCLIA [id number] [address] MCV (RBC) [Entitic vol] 99.6 fL Normal 80.0-100.0 [facility] Comment on above: Order Comment: Speci men Type: BLOOD SPECIMENOrdering Facility: [facility] Address: [address] [place] [address] Performed By: #### 5 8410-2 ####[facility]ORYCLIA [id number] [address] Nucleated RBC (Bld) [#/Vol] 0.02 10*3/uL High <0.01 [facility] Comment on above: Order Comment: Speci men Type: BLOOD SPECIMENOrdering Facility: [facility] Address: [address] [place] [address] Performed By: #### 5 8410-2 ####[facility]ORYCLIA [id number] [address] Platelet mean volume (Bld) [Entitic vol] 12.3 fL Normal 9.0-12.7 [facility] Comment on above: Order Comment: Speci men Type: BLOOD SPECIMENOrdering Facility: [facility] Address: [address] [place] [address] Performed By: #### 5 8410-2 ####[facility]ORYCLIA [id number] [address] Platelets (Bld) [#/Vol] 118 10*3/uL Low 150-400 [facility] Comment on above: Order Comment: Speci men Type: BLOOD SPECIMENOrdering Facility: [facility] Address: [address] [place] [address] Performed By: #### 5 8410-2 ####[facility]ATORYCLIA [id number] [address] [place] RBC (Bld) [#/Vol] 2.72 10*6/uL Low 3.90-5.20 [facility] Comment on above: Order Comment: Speci men Type: BLOOD SPECIMENOrdering Facility: [facility] Address: [address] [place] [address] Performed By: #### 5 8410-2 ####[facility]ATORYCLIA [id number] [place] [address] [place] WBC (Bld) [#/Vol] 8.10 10*3/uL Normal 3.70-11.00 [facility] Comment on above: Order Comment: Speci men Type: BLOOD SPECIMENOrdering Facility: [facility] Address: [address] [place] [address] Performed By: #### 5 8410-2 ####[facility]ATORYCLIA [id number] [address] [place] CONSULT PROGon 12-20-2022 CONSULT PROG Normal [facility] CONSULT PROG Normal [facility] CSF MANUAL DIFFon 12-20-2022 DIF TTL, CSF 41 cells counted Normal [facility] Comment on above: Order Comment: Speci men Type: CEREBROSPINAL FLUIDOrdering Facility: [facility] Address: [address] [place] [address] Performed By: #### 3 4563-7, [id number] ####[facility]ATORYCLIA [id number] [place] [address] [place] LYMPH%, CSF 66 % Normal 50-90 [facility] Comment on above: Order Comment: Speci men Type: CEREBROSPINAL FLUIDOrdering Facility: [facility] Address: [address] [place] [address] Performed By: #### 3 4563-7, [id number] ####[facility]ATORYCLIA [id number] [place] [address] [place] MONO%, CSF 20 % Normal 10-50 [facility] Comment on above: Order Comment: Speci men Type: CEREBROSPINAL FLUIDOrdering Facility: [facility] Address: [address] [place] [address] Performed By: #### 3 4563-7, [id number] ####[facility]ATORYCLIA [id number] [place] [address] [place] NEUT%, CSF 15 % High 0-3 [facility] Comment on above: Order Comment: Speci men Type: CEREBROSPINAL FLUIDOrdering Facility: [facility] Address: [address] [place] [address] Result Comment: Less than 100 cells counted on differential Performed By: #### 3 4563-7, [id number] ####[facility]ATORYCLIA [id number] [address] [place] Calcium.ionized [Moles/Vol]o n 12-20-2022 Calcium.ionized (BldV) [Mass/Vol] 1.13 mmol/L Normal 1.08-1.30 [facility] Comment on above: Order Comment: Speci men Type: BLOOD SPECIMENOrdering Facility: [facility] Address: [address] [place] [address] Performed By: #### 1 995-0 ####[facility]CLIA [id number] [address] Calcium.ionized adjusted to pH 7.4 (Bld) [Moles/Vol] 1.13 mmol/L Normal 1.08-1.30 [facility] Comment on above: Order Comment: Speci men Type: BLOOD SPECIMENOrdering Facility: [facility] Address: [address] [place] [address] Performed By: #### 1 995-0 ####[facility]ORYCLIA [id number] [address] Cell count panel (CSF)on Clarity (CSF) Clear Normal Clear [facility] Comment on above: Order Comment: Speci men Type: CEREBROSPINAL FLUIDOrdering Facility: [facility] Address: [address] [place] [address] Performed By: #### 3 4563-7, [id number] ####[facility]ORYCLIA [id number] [address] Clarity (Unsp spec) Clear Normal Clear [facility] Comment on above: Order Comment: Speci men Type: CEREBROSPINAL FLUIDOrdering Facility: [facility] Address: [address] [place] [address] Performed By: #### 3 4563-7, [id number] ####[facility]ORYCLIA [id number] [address] Color (CSF) Colorless Normal Colorless [facility] Comment on above: Order Comment: Speci men Type: CEREBROSPINAL FLUIDOrdering Facility: [facility] Address: [address] [place] [address] Performed By: #### 3 4563-7, [id number] ####[facility]ORYCLIA [id number] [address] Color (Spun CSF) Colorless Normal Colorless [facility] Comment on above: Order Comment: Speci men Type: CEREBROSPINAL FLUIDOrdering Facility: [facility] Address: [address] [place] [address] Performed By: #### 3 4563-7, [id number] ####[facility]ORYCLIA [id number] [address] CSF TUBE NUMBER Tube 1 Normal [facility] Comment on above: Order Comment: Speci men Type: CEREBROSPINAL FLUIDOrdering Facility: [facility] Address: [address] [place] [address] Performed By: #### 3 4563-7, [id number] ####[facility]ORYCLIA [id number] [address] RBC Manual cnt (CSF) [#/Vol] 21 cells/uL High 0-5 [facility] Comment on above: Order Comment: Speci men Type: CEREBROSPINAL FLUIDOrdering Facility: [facility] Address: [address] [place] [address] Performed By: #### 3 4563-7, [id number] ####[facility]ORYCLIA [id number] [address] WBC Manual cnt (CSF) [#/Vol] 3 cells/uL Normal 0-5 [facility] Comment on above: Order Comment: Speci men Type: CEREBROSPINAL FLUIDOrdering Facility: [facility] Address: [address] [place] [address] Performed By: #### 3 4563-7, [id number] ####[facility]ORYCLIA [id number] [place] [address] [place] Ferritin SerPl-ncon 2022 Ferritin [Mass/Vol] 943.2 ng/mL High 14.7-205.1 [facility] Comment on above: Order Comment: Speci men Type: BLOOD SPECIMENOrdering Facility: [facility] Address: [address] [place] [address] Performed By: #### 5 0190-8, 67516-9, 2777-1, 2276-4, 89664-6 ####[facility]ATORYCLIA [id number] [address] [place] Folate SerPl-mCncon 12-21-19 Folate [Mass/Vol] 12.0 ng/mL Normal >4.7 [facility] Comment on above: Order Comment: Rejii tai Type: BLOOD SPECIMENOrdering Facility: [facility] Address: [address] [place] [address] Performed By: #### 2 284-8, 76970-9, 2132-9, 3053-6 ####[facility]ATORYCLIA [id number] [place] [address] [place] Glucose CSF-mCncon Glucose (CSF) [Mass/Vol] 82 mg/dL High 40-70 [facility] Comment on above: Order Comment: Speci men Type: CEREBROSPINAL FLUIDOrdering Facility: [facility] Address: [address] [place] [address] Result Comment: Lumb ar CSF glucose values of healthy patients are approximately 60% of the plasma values and must always be compared with a concurrently measured plasma value for adequate clinical interpretation.References: 1. Glucose HK (GLUC3) [package insert V 12.0 [place]]. [employer], [place], [place]. February 2016. 2. Cher Avery, Jailene HTimothy (2015). Chapter 7: Glucose and Lactate. Eliazar Del Cid.(eds.), Cerebrospinal Fluid in Clinical Neurology. [place]: [place]. Performed By: #### 2 342-4, 2880-3 ####[facility] LABORATORYCLIA [id number] [address] [place] HERPES SIMPLEX CSFon 023 HERPES SIMPLEX CSF HSV-1: Negative for Herpes Simplex Virus Type 1 by PCR HSV-2: Negative for Herpes Simplex Virus Type 2 by PCR Normal [facility] Comment on above: Performed By: #### H [facility] ####[facility] LABCLIA [id number] [address] OF [facility] Iron and Iron binding capaci ty panelon 12-20-2022 Iron [Mass/Vol] 32 ug/dL Low 41-186 [facility] Comment on above: Order Comment: Speci men Type: BLOOD SPECIMENOrdering Facility: [facility] Address: [address] [address] Performed By: #### 5 0190-8, 56434-9, 2776-1, 2275-, ####[facility] HOSPITALIA [id number] [address] STATES [facility] Iron binding capacity [Mass/Vol] 128 ug/dL Low 232-386 [facility] Comment on above: Order Comment: Speci men Type: BLOOD SPECIMENOrdering Facility: [facility] Address: [address] [address] Performed By: #### 5 0190-8, 77932-3, 7-1, 2275-, ####[facility]ORYCLIA [id number] [address] Iron saturation [Mass fraction] 25.0 % Normal 15.0-57.0 [facility] Comment on above: Order Comment: Speci men Type: BLOOD SPECIMENOrdering Facility: [facility] Address: [address] [address] Performed By: #### 5 0190-8, 51457-2, 2777-1, 2276-4, 94712-7 ####[facility]ATORYCLIA [id number] [place] [address] [place] MENINGITIS ENCEPHALITIS BIOF IREon 12-20-2022 C. gattii+neoformans DNA CY+non-probe Ql (CSF) Not detected Normal Not detected, Indeterminate [facility] Comment on above: Order Comment: Speci [facility] Type: CEREBROSPINAL FLUIDOrdering Facility: [facility] Address: [address] [address] Performed By: #### M GEBF ####[facility]ATORYCLIA [id number] [address] [place] CMV DNA CY+non-probe Ql (CSF) Not detected Normal Not detected, Indeterminate [facility] Comment on above: Order Comment: Speci [facility] Type: CEREBROSPINAL FLUIDOrdering Facility: [facility] Address: [address] [address] Performed By: #### M GEBF ####[facility]ATORYCLIA [id number] [address] [place] E. coli K1 DNA CY+non-probe Ql (CSF) Not detected Normal Not detected, Indeterminate [facility] Comment on above: Order Comment: Speci men Type: CEREBROSPINAL FLUIDOrdering Facility: [facility] Address: [address] [address] Performed By: #### M GEBF ####[facility]ORATORYCLIA [id number] [address] [place] Enterovirus RNA CY+non-probe Ql (CSF) Not detected Normal Not detected, Indeterminate [facility] Comment on above: Order Comment: [facility] Type: CEREBROSPINAL FLUIDOrdering Facility: [facility] Address: [address] [address] Performed By: #### M GEBF ####[facility]ATORYCLIA [id number] [address] OF [facility] H. influenzae DNA CY+non-probe Ql (CSF) Not detected Normal Not detected, Indeterminate [facility] Comment on above: Order Comment: [facility] Type: CEREBROSPINAL FLUIDOrdering Facility: [facility] Address: [address] [address] Performed By: #### M GEBF ####[facility]ATORYCLIA [id number] [address] [place] HHV 6 DNA CY+non-probe Ql (CSF) Not detected Normal Not detected, Indeterminate [facility] Comment on above: Order Comment: [facility] Type: CEREBROSPINAL FLUIDOrdering Facility: [facility] Address: [address] [place] [address] Performed By: #### M GEBF ####[facility]ORYCLIA [id number] [address] [place] HSV 1 DNA CY+non-probe Ql (CSF) Not detected Normal Not detected, Indeterminate [facility] Comment on above: Order Comment: [facility] Type: CEREBROSPINAL FLUIDOrdering Facility: [facility] Address: [address] [place] [address] Performed By: #### M GEBF ####[facility]ATORYCLIA [id number] [address] [place] HSV 2 DNA CY+non-probe Ql (CSF) Not detected Normal Not detected, Indeterminate [facility] Comment on above: Order Comment: [facility] Type: CEREBROSPINAL FLUIDOrdering Facility: [facility] Address: [address] [address] Performed By: #### M GEBF ####[facility]ORYCLIA [id number] [address] [place] L. monocytogenes DNA CY+non-probe Ql (CSF) Not detected Normal Not detected, Indeterminate [facility] Comment on above: Order Comment: [facility] Type: CEREBROSPINAL FLUIDOrdering Facility: [facility] Address: [address] [address] Performed By: #### M GEBF ####[facility]ORYCLIA [id number] [address] [place] N. meningitidis DNA CY+non-probe Ql (CSF) Not detected Normal Not detected, Indeterminate [facility] Comment on above: Order Comment: Speci men Type: CEREBROSPINAL FLUIDOrdering Facility: [facility] Address: [address] [place] [address] Performed By: #### M GEBF ####[facility]ORYCLIA [id number] [place] [address] [place] Parechovirus A RNA CY+non-probe Ql (CSF) Not detected Normal Not detected, Indeterminate [facility] Comment on above: Order Comment: [facility] Type: CEREBROSPINAL FLUIDOrdering Facility: [facility] Address: [address] [place] [address] Performed By: #### M GEBF ####[facility]ORYCLIA [id number] [address] [place] S. agalactiae DNA CY+non-probe Ql (CSF) Not detected Normal Not detected, Indeterminate [facility] Comment on above: Order Comment: [facility] Type: CEREBROSPINAL FLUIDOrdering Facility: [facility] Address: [address] [place] [address] Performed By: #### M GEBF ####[facility]ORYCLIA [id number] [address] [place] S. pneumoniae DNA CY+non-probe Ql (CSF) Not detected Normal Not detected, Indeterminate [facility] Comment on above: Order Comment: [facility] Type: CEREBROSPINAL FLUIDOrdering Facility: [facility] Address: [address] [place] [address] Performed By: #### M GEBF ####[facility]ORYCLIA [id number] [address] [place] VZV DNA CY+non-probe Ql (CSF) Not detected Normal Not detected, Indeterminate [facility] Comment on above: Order Comment: Speci men Type: CEREBROSPINAL FLUIDOrdering Facility: [facility] Address: [address] [place] [address] Performed By: #### M GEBF ####[facility]ORYCLIA [id number] [address] [place] Magnesium SerPl-mCncon 12-20 Magnesium [Mass/Vol] 1.4 mg/dL Low 1.7-2.3 [facility] Comment on above: Order Comment: Speci men Type: BLOOD SPECIMENOrdering Facility: [facility] Address: [address] [place] [address] Performed By: #### 5 0190-8, 10288-4, 2777-1, 2276-4, 02271-8 ####[facility]ATORYCLIA [id number] [address] OF [facility] NURSING PROGon 12-20-2022 NURSING PROG Normal [facility] PT panel Coag (PPP)on 2022 INR Coag (PPP) [Relative time] 1.0 {INR} Normal 0.9-1.3 [facility] Comment on above: Order Comment: Speci men Type: BLOOD SPECIMENOrdering Facility: [facility] Address: [address] [place] [address] Result Comment: Adele min K Antagonist (VKA) Therapeutic Range: INR 2 to 3 (Target INR of 2.5)Note: For patients treated with VKA drugs, such as warfarin, the [place] [employer] 2012 Guideline recommends a therapeutic INR range of 2 to 3 (target INR of 2.5). This recommendation includes high-risk patients with antiphospholipid syndrome with previous arterial or venous thromboembolism, current-generation mechanical or bioprosthetic aortic heart valve replacement.Note: Patients with mechanical aortic valve replacement and additional risk factors for thromboembolic events (atrial fibrillation, previous thromboembolism, LV dysfunction, hypercoagulable conditions) or an older generation mechanical AVR (i.e., ball in-Cage) or any mechanical MVR should have a INR therapeutic range of 2.5 to 3.5 (target INR of 3).Freddy GH, et al. Chest 2012, 141:7S-47SNishimura RA, et al. [facility] 2017, 70: 252-289 Performed By: #### 3 4528-0, 09776-5 ####[facility]ORYCLIA [id number] [address] STATES OF [facility] PT Coag (PPP) [Time] 10.5 s Normal 9.7-13.0 [facility] Comment on above: Order Comment: Speci men Type: BLOOD SPECIMENOrdering Facility: [facility] Address: [address] [place] [address] Performed By: #### 3 4528-0, 39520-3 ####[facility]ORYCLIA [id number] [address] Phosphate SerPl-ncon 12-20 Phosphate [Mass/Vol] 1.9 mg/dL Low 2.7-4.8 [facility] Comment on above: Order Comment: Speci men Type: BLOOD SPECIMENOrdering Facility: [facility] Address: [address] [place] [address] Performed By: #### 5 0190-8, 85731-2, 2777-1, 2276-4, 03091-0 ####[facility]ITALCLIA [id number] [address] Procalcitonin SerPl-ncon 0 12-20-2022 Procalcitonin [Mass/Vol] 1.71 ng/mL High <0.09 [facility] Comment on above: Order Comment: Speci men Type: BLOOD SPECIMENOrdering Facility: [facility] Address: [address] [place] [address] Result Comment: For a guided interpretation of test results, please visit the Change in Procalcitonin Calculator, [email or web address]. Performed By: #### 2 284-8, 93390-4, 2132-9, 3053-6 ####[facility]ATORYCLIA [id number] [address] [place] Prot CSF-mCncon 12-20-2022 Protein (CSF) [Mass/Vol] 22 mg/dL Normal 15-45 [facility] Comment on above: Order Comment: Speci men Type: CEREBROSPINAL FLUIDOrdering Facility: [facility] Address: [address] [place] [address] Performed By: #### 2 342-4, 2880-3 ####[facility]ORYCLIA [id number] [address] STATES OF [facility] T3 SerPl-mCncon 12-20-2022 T3 [Mass/Vol] 87 ng/dL Normal 79-165 [facility] Comment on above: Order Comment: Speci men Type: BLOOD SPECIMENOrdering Facility: [facility] Address: [address] [place] [address] Performed By: #### 2 284-8, 18198-6, 9, 3053-6 ####[facility]ORYCLIA [id number] [address] STATES OF [facility] Vancomycin random [Mass/Vol] on 12-20-2022 Vancomycin [Mass/Vol] 12.5 ug/mL Normal 10.0-20.0 [facility] Comment on above: Order Comment: [facility] Type: BLOOD SPECIMENOrdering Facility: [facility] Address: [address] [place] [address] Result Comment: Refe rence ranges and high/low indicator flags are provided as general guidelines only. The treating physician must determine appropriate target levels/dosing based on the specific clinical situation. Performed By: #### 4 091-5 ####[facility]ORYCLIA [id number] [address] [place] Vit B12 SerPl-mCncon 023 Cobalamin (Vitamin B12) [Mass/Vol] 729 pg/mL Normal 232-1245 [facility] Comment on above: Order Comment: Speci men Type: BLOOD SPECIMENOrdering Facility: [facility] Address: [address] [place] [address] Performed By: #### 2 284-8, 10722-8, 2131-9, 3053-6 ####[facility]ORYCLIA [id number] [address] [place] aPTT PPPon 12-20-2022 aPTT Coag (PPP) [Time] 24.2 s Normal 23.0-32.4 [facility] Comment on above: Order Comment: Speci men Type: BLOOD SPECIMENOrdering Facility: [facility] Address: [address] [place] [address] Performed By: #### 3 4528-0, 13049-5 ####[facility]ORYCLIA [id number] [address] OF [facility] ALLIED HEALTHon 12-19-2022 ALLIED HEALTH Normal [facility] ALLIED HEALTH Normal [facility] Bacteria Spec Resp Culton Bacteria identified Respiratory culture Nom (Unsp spec) CULTURE, RESPIRATORY: Rare Normal respiratory jorge present GRAM STAIN: No organisms seen Few Polymorphonuclear leukocytes Few Epithelial cells Normal [facility] Comment on above: Performed By: #### 3 2355-0 ####[facility]ORYCLIA [id number] [place] [address] [place] Basic metabolic 2000 panelon 12-19-2022 Anion gap [Moles/Vol] 10 mmol/L Normal 9-18 [facility] Comment on above: Order Comment: Speci men Type: BLOOD SPECIMENOrdering Facility: [facility] Address: [address] [place] [address] Performed By: #### 2 4321-2 ####[facility]ORYCLIA [id number] [address] [place] Calcium [Mass/Vol] 8.6 mg/dL Normal 8.5-10.2 [facility] Comment on above: Order Comment: Speci men Type: BLOOD SPECIMENOrdering Facility: [facility] Address: [address] [place] [address] Performed By: #### 2 4321-2 ####[facility]ORYCLIA [id number] [address] [place] Chloride [Moles/Vol] 110 mmol/L High 97-105 [facility] Comment on above: Order Comment: Speci men Type: BLOOD SPECIMENOrdering Facility: [facility] Address: [address] [place] [address] Performed By: #### 2 4321-2 ####[facility]ORYCLIA [id number] [address] STATES OF [facility] CO2 [Moles/Vol] 22 mmol/L Normal 22-30 [facility] Comment on above: Order Comment: Speci men Type: BLOOD SPECIMENOrdering Facility: [facility] Address: [address] [place] [address] Performed By: #### 2 4321-2 ####[facility]ITALCLIA [id number] [address] Creatinine [Mass/Vol] 0.72 mg/dL Normal 0.58-0.96 [facility] Comment on above: Order Comment: Speci men Type: BLOOD SPECIMENOrdering Facility: [facility] Address: [address] [place] [address] Performed By: #### 2 4321-2 ####[facility]ORYCLIA [id number] [address] ESTIMATED GLOMERULAR FILTRATION RATE 90 mL/min/1.73m??? Normal >=60 [facility] Comment on above: Order Comment: Speci men Type: BLOOD SPECIMENOrdering Facility: [facility] Address: [address] [place] [address] Result Comment: Mariely mated Glomerular Filtration Rate (eGFR) is calculated using the 2020 CKD-EPI creatinine equation. This equation utilizes serum creatinine, sex, and age as parameters. The creatinine assay has traceable calibration to isotope dilution-mass spectrometry. Refer to KDIGO guidelines for clinical interpretation. In patients with unstable renal function, e.g. those with acute kidney injury, the eGFR may not accurately reflect actual GFR. Performed By: #### 2 4321-2 ####[facility]ORYCLIA [id number] [address] OF [facility] Glucose [Mass/Vol] 117 mg/dL High 74-99 [facility] Comment on above: Order Comment: Speci men Type: BLOOD SPECIMENOrdering Facility: [facility] Address: [address] [place] [address] Result Comment: The [place] [employer] (ADA) provides guidance for cutoff values for fasting glucose and random glucose. The ADA defines fasting as no caloric intake for at least 8 hours. Fasting plasma glucose results between 100 to 125 mg/dL indicate increased risk for diabetes (prediabetes).Fasting plasma glucose results greater than or equal to 126 mg/dL meet the criteria for diagnosis of diabetes. In the absence of unequivocal hyperglycemia, results should be confirmed by repeat testing. In a patient with classic symptoms of hyperglycemia or hyperglycemic crisis, random plasma glucose results greater than or equal to 200 mg/dL meet the criteria for diagnosis of diabetes.Reference: Standards of Medical Care in Diabetes 2016, [place] [employer]. Diabetes Care. 2016.39(Suppl 1). Performed By: #### 2 4321-2 ####[facility]ATORYCLIA [id number] [place] [address] [place] Potassium [Moles/Vol] 3.0 mmol/L Low 3.7-5.1 [facility] Comment on above: Order Comment: Cary tai Type: BLOOD SPECIMENOrdering Facility: [facility] Address: [address] [place] [address] Performed By: #### 2 4321-2 ####[facility]ORYCLIA [id number] [place] [address] [place] Sodium [Moles/Vol] 142 mmol/L Normal 136-144 [facility] Comment on above: Order Comment: Speci men Type: BLOOD SPECIMENOrdering Facility: [facility] Address: [address] [place] [address] Performed By: #### 2 4321-2 ####[facility]ATORYCLIA [id number] [place] [address] [place] Urea nitrogen [Mass/Vol] 32 mg/dL High 7-21 [facility] Comment on above: Order Comment: Speci men Type: BLOOD SPECIMENOrdering Facility: [facility] Address: [address] [place] [address] Performed By: #### 2 4321-2 ####[facility]ATORYCLIA [id number] [address] CBC panel Auto (Bld)on 12-19 Erythrocyte distribution width (RBC) [Ratio] 14.6 % Normal 11.5-15.0 [facility] Comment on above: Order Comment: Speci men Type: BLOOD SPECIMENOrdering Facility: [facility] Address: [address] [place] [address] Performed By: #### 5 8410-2 ####[facility]ATORYCLIA [id number] [address] Hematocrit (Bld) [Volume fraction] 30.7 % Low 36.0-46.0 [facility] Comment on above: Order Comment: Speci men Type: BLOOD SPECIMENOrdering Facility: [facility] Address: [address] [place] [address] Performed By: #### 5 8410-2 ####[facility]ATORYCLIA [id number] [address] Hemoglobin (Bld) [Mass/Vol] 9.9 g/dL Low 11.5-15.5 [facility] Comment on above: Order Comment: Speci men Type: BLOOD SPECIMENOrdering Facility: [facility] Address: [address] [place] [address] Performed By: #### 5 8410-2 ####[facility]ATORYCLIA [id number] [address] MCH (RBC) [Entitic mass] 32.0 pg Normal 26.0-34.0 [facility] Comment on above: Order Comment: Speci men Type: BLOOD SPECIMENOrdering Facility: [facility] Address: [address] [place] [address] Performed By: #### 5 8410-2 ####[facility]ATORYCLIA [id number] [place] [address] [place] MCHC (RBC) [Mass/Vol] 32.2 g/dL Normal 30.5-36.0 [facility] Comment on above: Order Comment: Speci men Type: BLOOD SPECIMENOrdering Facility: [facility] Address: [address] [place] [address] Performed By: #### 5 8410-2 ####[facility]ATORYCLIA [id number] [address] OF [facility] MCV (RBC) [Entitic vol] 99.4 fL Normal 80.0-100.0 [facility] Comment on above: Order Comment: Speci men Type: BLOOD SPECIMENOrdering Facility: [facility] Address: [address] [place] [address] Performed By: #### 5 8410-2 ####[facility]ORYCLIA [id number] [address] STATES OF [facility] Nucleated RBC (Bld) [#/Vol] 0.02 10*3/uL High <0.01 [facility] Comment on above: Order Comment: Speci men Type: BLOOD SPECIMENOrdering Facility: [facility] Address: [address] [place] [address] Performed By: #### 5 8410-2 ####[facility]ORYCLIA [id number] [address] [place] Platelet mean volume (Bld) [Entitic vol] 11.8 fL Normal 9.0-12.7 [facility] Comment on above: Order Comment: Speci men Type: BLOOD SPECIMENOrdering Facility: [facility] Address: [address] [place] [address] Performed By: #### 5 8410-2 ####[facility]ORYCLIA [id number] [address] Platelets (Bld) [#/Vol] 74 10*3/uL Low 150-400 [facility] Comment on above: Order Comment: Speci men Type: BLOOD SPECIMENOrdering Facility: [facility] Address: [address] [place] [address] Result Comment: No c lot detected. Performed By: #### 5 8410-2 ####[facility]ORYCLIA [id number] [address] RBC (Bld) [#/Vol] 3.09 10*6/uL Low 3.90-5.20 [facility] Comment on above: Order Comment: Speci men Type: BLOOD SPECIMENOrdering Facility: [facility] Address: [address] [place] [address] Performed By: #### 5 8410-2 ####[facility]ORYCLIA [id number] [address] WBC (Bld) [#/Vol] 15.05 10*3/uL High 3.70-11.00 [facility] Comment on above: Order Comment: Speci men Type: BLOOD SPECIMENOrdering Facility: [facility] Address: [address] [place] [address] Performed By: #### 5 8410-2 ####[facility]ORYCLIA [id number] [address] OF [facility] CONSULTon 12-19-2022 CONSULT Normal [facility] CONSULT PROGon 12-19-2022 CONSULT PROG Normal [facility] CONSULT PROG Normal [facility] Comprehensive metabolic 2000 panelon 12-19-2022 Albumin [Mass/Vol] 2.6 g/dL Low 3.9-4.9 [facility] Comment on above: Order Comment: Speci men Type: BLOOD SPECIMENOrdering Facility: [facility] Address: [address] [place] [address] Performed By: #### 2 777-1, 31470-9, 67549-4, 99266-0 ####[facility]ORYCLIA [id number] [address] ALP [Catalytic activity/Vol] 75 U/L Normal 34-123 [facility] Comment on above: Order Comment: Speci men Type: BLOOD SPECIMENOrdering Facility: [facility] Address: [address] [address] Performed By: #### 2 777-1, 59606-0, 84353-4, ####[facility]ORYCLIA [id number] [address] ALT With P-5'-P [Catalytic activity/Vol] 20 U/L Normal 7-38 [facility] Comment on above: Order Comment: Speci men Type: BLOOD SPECIMENOrdering Facility: [facility] Address: [address] [address] Performed By: #### 2 777-1, 72773-7, , ####[facility]ORYCLIA [id number] [address] Anion gap [Moles/Vol] 10 mmol/L Normal 9-18 [facility] Comment on above: Order Comment: Speci men Type: BLOOD SPECIMENOrdering Facility: [facility] Address: [address] [place] [address] Performed By: #### 2 777-1, 86125-0, , ####[facility]ORYCLIA [id number] [address] AST With P-5'-P [Catalytic activity/Vol] 40 U/L High 13-35 [facility] Comment on above: Order Comment: Speci men Type: BLOOD SPECIMENOrdering Facility: [facility] Address: [address] [address] Performed By: #### 2 777-1, 57861-7, , 52996-2 ####[facility]ORYCLIA [id number] [address] Bilirubin [Mass/Vol] 0.6 mg/dL Normal 0.2-1.3 [facility] Comment on above: Order Comment: Speci men Type: BLOOD SPECIMENOrdering Facility: [facility] Address: [address] [address] Performed By: #### 2 777-1, 29843-0, , ####[facility]ORYCLIA [id number] [place] [address] [place] Calcium [Mass/Vol] 8.7 mg/dL Normal 8.5-10.2 [facility] Comment on above: Order Comment: Speci men Type: BLOOD SPECIMENOrdering Facility: [facility] Address: [address] [place] [address] Performed By: #### 2 777-1, 35231-7, , ####[facility]ORYCLIA [id number] [place] [address] [place] Chloride [Moles/Vol] 111 mmol/L High 97-105 [facility] Comment on above: Order Comment: Speci men Type: BLOOD SPECIMENOrdering Facility: [facility] Address: [address] [place] [address] Performed By: #### 2 777-1, 60891-0, , ####[facility]ORYCLIA [id number] [place] [address] [place] CO2 [Moles/Vol] 21 mmol/L Low 22-30 [facility] Comment on above: Order Comment: Speci men Type: BLOOD SPECIMENOrdering Facility: [facility] Address: [address] [place] [address] Performed By: #### 2 777-1, 50461-6, , ####[facility]ORYCLIA [id number] [place] [address] [place] Creatinine [Mass/Vol] 0.71 mg/dL Normal 0.58-0.96 [facility] Comment on above: Order Comment: Speci men Type: BLOOD SPECIMENOrdering Facility: [facility] Address: [address] [place] [address] Performed By: #### 2 777-1, 42513-0, , ####[facility] HOSPITALIA [id number] [place] [address] [place] ESTIMATED GLOMERULAR FILTRATION RATE 91 mL/min/1.73m??? Normal >=60 [facility] Comment on above: Order Comment: Cary lujan Type: BLOOD SPECIMENOrdering Facility: [facility] Address: [address] [place] [address] Result Comment: Mariely mated Glomerular Filtration Rate (eGFR) is calculated using the 2020 CKD-EPI creatinine equation. This equation utilizes serum creatinine, sex, and age as parameters. The creatinine assay has traceable calibration to isotope dilution-mass spectrometry. Refer to KDIGO guidelines for clinical interpretation. In patients with unstable renal function, e.g. those with acute kidney injury, the eGFR may not accurately reflect actual GFR. Performed By: #### 2 777-1, 92096-5, , ####[facility] HOSPITALIA [id number] [address] STATES [facility] Glucose [Mass/Vol] 94 mg/dL Normal 74-99 [facility] Comment on above: Order Comment: Cary lujan Type: BLOOD SPECIMENOrdering Facility: [facility] Address: [address] [place] [address] Result Comment: The [place] Diabetes Association (ADA) provides guidance for cutoff values for fasting glucose and random glucose. The ADA defines fasting as no caloric intake for at least 8 hours. Fasting plasma glucose results between 100 to 125 mg/dL indicate increased risk for diabetes (prediabetes).Fasting plasma glucose results greater than or equal to 126 mg/dL meet the criteria for diagnosis of diabetes. In the absence of unequivocal hyperglycemia, results should be confirmed by repeat testing. In a patient with classic symptoms of hyperglycemia or hyperglycemic crisis, random plasma glucose results greater than or equal to 200 mg/dL meet the criteria for diagnosis of diabetes.Reference: Standards of Medical Care in Diabetes 2016, [place] [employer] Association. Diabetes Care. 2016.39(Suppl 1). Performed By: #### 2 777-1, 42237-0, 89126-4, ####[facility] LABORATORYCLIA [id number] [place] [address] [place] Potassium [Moles/Vol] 3.9 mmol/L Normal 3.7-5.1 [facility] Comment on above: Order Comment: Speci men Type: BLOOD SPECIMENOrdering Facility: [facility] Address: [address] [place] [address] Performed By: #### 2 777-1, 63611-5, 51281-4, 27594-8 ####[facility] LABORATORYCLIA [id number] [address] [place] Protein [Mass/Vol] 4.9 g/dL Low 6.3-8.0 [facility] Comment on above: Order Comment: Speci men Type: BLOOD SPECIMENOrdering Facility: [facility] Address: [address] [place] [address] Performed By: #### 2 777-1, 96875-3, , ####[facility] LABORATORYCLIA [id number] [address] STATES OF [facility] Sodium [Moles/Vol] 142 mmol/L Normal 136-144 [facility] Comment on above: Order Comment: Speci men Type: BLOOD SPECIMENOrdering Facility: [facility] Address: [address] [place] [address] Performed By: #### 2 777-1, 12041-0, 74376-1, 51935-0 ####[facility] LABORATORYCLIA [id number] [address] [place] Urea nitrogen [Mass/Vol] 27 mg/dL High 7-21 [facility] Comment on above: Order Comment: Speci men Type: BLOOD SPECIMENOrdering Facility: [facility] Address: [address] [place] [address] Performed By: #### 2 777-1, 90946-0, 90875-3, 14015-3 ####[facility] LABORATORYCLIA [id number] [place] [address] [place] Lipid 1996 panelon 3 Cholesterol [Mass/Vol] 131 mg/dL Normal <200 [facility] Comment on above: Order Comment: Cary tai Type: BLOOD SPECIMENOrdering Facility: [facility] Address: [address] [place] [address] Result Comment: <200 mg/dL, Desirable 200-239 mg/dL, Borderline high>239 mg/dL, High Performed By: #### 2 777-1, 44014-6, , ####[facility]ATORYCLIA [id number] [address] OF [facility] Cholesterol in HDL [Mass/Vol] 34 mg/dL Low >39 [facility] Comment on above: Order Comment: Cary tai Type: BLOOD SPECIMENOrdering Facility: [facility] Address: [address] [place] [address] Result Comment: 40-5 9 mg/dL, Acceptable>59 mg/dL, High: Negative risk factor for coronary heart disease<40 mg/dL, Low: Positive risk factor for coronary heart disease Performed By: #### 2 777-1, 39644-3, , ####[facility]ORYCLIA [id number] [address] [place] Cholesterol in LDL [Mass/Vol] 79 mg/dL Normal <100 [facility] Comment on above: Order Comment: Cary tai Type: BLOOD SPECIMENOrdering Facility: [facility] Address: [address] [place] [address] Result Comment: <100 mg/dL, Optimal 100-129 mg/dL, Near optimal/above optimal 130-159 mg/dL, Borderline high 160-189 mg/dL, High>189 mg/dL, Very highSecondary prevention optimal LDL Cholesterol levels are recommended to be < 70 mg/dL Performed By: #### 2 777-1, 85866-0, , ####[facility]ATORYCLIA [id number] [address] [place] Cholesterol in LDL/Cholesterol in HDL [Mass ratio] 2.32 {ratio} Normal <2.54 [facility] Comment on above: Order Comment: Speci men Type: BLOOD SPECIMENOrdering Facility: [facility] Address: [address] [place] [address] Result Comment: Brendan molina:1. National Cholesterol Education Program ATP III Guideline At-A-Glance Quick Desk Reference: National Heart, Lung, and Blood Crozier. National Institutes of Health. 2001: NIH Publication No. 01-3305.2. An International Atherosclerosis Society position paper: global recommendations for the management of dyslipidemia: executive summary, Atherosclerosis. 2014: 232(2):410-413. Performed By: #### 2 777-1, 10869-0, , ####[facility]ATORYCLIA [id number] [address] [place] Cholesterol in VLDL [Mass/Vol] 18 mg/dL Normal <30 [facility] Comment on above: Order Comment: Speci men Type: BLOOD SPECIMENOrdering Facility: [facility] Address: [address] [place] [address] Performed By: #### 2 777-1, 67445-8, , ####[facility]ATORYCLIA [id number] [address] [place] Cholesterol non HDL [Mass/Vol] 97 mg/dL Normal <130 [facility] Comment on above: Order Comment: Speci men Type: BLOOD SPECIMENOrdering Facility: [facility] Address: [address] [place] [address] Result Comment: <130 mg/dL, Optimal 130-159 mg/dL, Near optimal/above optimal 160-189 mg/dL, Borderline high 190-219 mg/dL, High>219 mg/dL, Very highSecondary prevention optimal non HDL Cholesterol levels are recommended to be <100 mg/dL Performed By: #### 2 777-1, 79022-6, , ####[facility] LABORATORYCLIA [id number] [place] [address] [place] Cholesterol.total/Cho lesterol in HDL [Mass ratio] 3.85 {ratio} Normal <5.10 [facility] Comment on above: Order Comment: Speci men Type: BLOOD SPECIMENOrdering Facility: [facility] Address: [address] [place] [address] Performed By: #### 2 777-1, 28819-0, , ####[facility] LABORATORYCLIA [id number] [place] [address] [place] FASTING TIME Normal [facility] Comment on above: Order Comment: Speci men Type: BLOOD SPECIMENOrdering Facility: [facility] Address: [address] [place] [address] Result Comment: Unkn own Performed By: #### 2 777-1, , , ####[facility] LABORATORYCLIA [id number] [address] [place] Triglyceride [Mass/Vol] 89 mg/dL Normal <150 [facility] Comment on above: Order Comment: Speci men Type: BLOOD SPECIMENOrdering Facility: [facility] Address: [address] [place] [address] Result Comment: <150 mg/dL, Normal 150-199 mg/dL, Borderline high 200-499 mg/dL, High>499 mg/dL, Very high Performed By: #### 2 777-1, , , ####NJMIKAEL [facility] LABORATORYCLIA [id number] [address] [place] MRI BRAIN WO/W IVCONon 12-19 MRI BRAIN WO/W IVCON Normal [facility] Magnesium SerPl-mCncon 12-19 Magnesium [Mass/Vol] 1.9 mg/dL Normal 1.7-2.3 [facility] Comment on above: Order Comment: Speci men Type: BLOOD SPECIMENOrdering Facility: [facility] Address: [address] [place] [address] Performed By: #### 2 777-1, 47321-8, , ####[facility]ATORYCLIA [id number] [address] STATES OF [facility] Microbial respiratory cultur eOrdered By: Dr. Pham on 12-19-2022 Bacteria identified Respiratory culture Nom (Unsp spec) [facility] NURSING PROGon 12-19-2022 NURSING PROG Normal [facility] NURSING PROG Normal [facility] NUTRITIONon 12-19-2022 NUTRITION Normal [facility] PT panel Coag (PPP)on 2022 INR Coag (PPP) [Relative time] 1.0 {INR} Normal 0.9-1.3 [facility] Comment on above: Order Comment: Speci men Type: BLOOD SPECIMENOrdering Facility: [facility] Address: [address] [address] Result Comment: Adele min K Antagonist (VKA) Therapeutic Range: INR 2 to 3 (Target INR of 2.5)Note: For patients treated with VKA drugs, such as warfarin, the [place] [employer] 2012 Guideline recommends a therapeutic INR range of 2 to 3 (target INR of 2.5). This recommendation includes high-risk patients with antiphospholipid syndrome with previous arterial or venous thromboembolism, current-generation mechanical or bioprosthetic aortic heart valve replacement.Note: Patients with mechanical aortic valve replacement and additional risk factors for thromboembolic events (atrial fibrillation, previous thromboembolism, LV dysfunction, hypercoagulable conditions) or an older generation mechanical AVR (i.e., ball in-Cage) or any mechanical MVR should have a INR therapeutic range of 2.5 to 3.5 (target INR of 3).Freddy GH, et al. Chest 2012, 141:7S-47SNishimura RA, et al. [facility] 2017, 70: 252-289 Performed By: #### 3 4528-0, 54686-9 ####[facility]ATORYCLIA [id number] [address] [place] PT Coag (PPP) [Time] 10.6 s Normal 9.7-13.0 [facility] Comment on above: Order Comment: Speci men Type: BLOOD SPECIMENOrdering Facility: [facility] Address: [address] [id number] Performed By: #### 3 4528-0, 06650-3 ####[facility]ORATORYCLIA [id number] [place] [id number] [facility] Phosphate SerPl-mCncon 12-19 Phosphate [Mass/Vol] 1.8 mg/dL Low 2.7-4.8 [facility] Comment on above: Order Comment: Cary lujan Type: BLOOD SPECIMENOrdering Facility: [facility] Address: [address] [place] [address] Performed By: #### 2 777-1, 65121-1, 65295-8, 50827-3 ####[facility]ATORYCLIA [id number] [address] aPTT PPPon 12-19-2022 aPTT Coag (PPP) [Time] 23.9 s Normal 23.0-32.4 [facility] Comment on above: Order Comment: Cary lujan Type: BLOOD SPECIMENOrdering Facility: [facility] Address: [address] [place] [address] Performed By: #### 3 4528-0, 08224-9 ####[facility]ATORYCLIA [id number] [address] OF [facility] ALLIED HEALTHon 12-18-2022 ALLIED HEALTH Normal [facility] ALLIED HEALTH Normal [facility] APAP SerPl-mCncon 12-18-2022 Acetaminophen [Mass/Vol] ug/mL Low 10-30 [facility] Comment on above: Order Comment: Cary lujan Type: BLOOD SPECIMENOrdering Facility: [facility] Address: [address] [place] [address] Result Comment: Toxi c > 150 ug/mL 4 hours post ingestionThe Gema Melissa nomogram can be used to estimate the probability of hepatotoxicity via the relationship of plasma acetaminophen concentration to the post ingestion interval. (Petra. Pediatrics. 1975. 55:871 to 876 and Gema et al. Arch Block Operator Med. 1981. 141:380 to 385).Reference ranges and high/low indicator flags are provided as general guidelines only. The treating physician must determine appropriate target levels/dosing based on the specific clinical situation. Performed By: #### 3 298-7, 4024-6 ####[facility]ATORYCLIA [id number] [address] Absolute lymphocyte countOrd ered By: Dr. Alonzo on 12-18-2022 Lymphocytes Auto (Unsp spec) [#/Vol] 0.44 10*3/uL 0.83-4.51 [facility] Ammonia Plas-sCncon 12-19-19 23 Ammonia (P) [Moles/Vol] 16 umol/L Normal [facility] Comment on above: Order Comment: Speci men Type: BLOOD SPECIMENOrdering Facility: [facility] Address: [facility] [place] [address] Performed By: #### 1 6362-6 ####[facility]ORATORYCLIA [id number] [address] Bacteria Bld Culton 12-19-19 23 Bacteria identified Cx Nom (Bld) CULTURE, BLOOD: No growth 5 days Normal [facility] Comment on above: Performed By: #### 6 00-7 ####[facility]ATORYCLIA [id number] [address] Bacteria Ur Culton 3 Bacteria identified Cx Nom (U) CULTURE, URINE: No growth (<1,000 CFU/ml) Normal [facility] Comment on above: Performed By: #### 6 30-4 ####[facility]ATORYCLIA [id number] [address] [place] Basophil percentageOrdered B y: Dr. Robert on 12-18-2022 Basophil percentage 1.7 mg/dL 2.5-4.9 [facility] Basophil percentageOrdered B y: Dr. Alonzo on 12-18-2022 Basophils/100 WBC (Bld) 0.2 % 0-1 [facility] Bilirubin [Mass/Vol] 1.20 mg/dL 0.20-1.00 [facility] Comment on above: For patients on eltr ombopag therapy, use of Dimension [place] TBIL is not recommended. Chloride [Moles/Vol] 112 mmol/L 98-107 [facility] Eosinophils/100 WBC (Bld) 0.0 % 0-5 [facility] Glucose [Mass/Vol] 135 mg/dL 74-106 [facility] Comment on above: Fasting Glucose resu lt greater than or equal to 126 mg/dL suggests DIABETES MELLITUS per A.D.A. criteria. Neutrophils (Bld) [#/Vol] 10.6 10*3/uL 2.0-7.7 [facility] Neutrophils/100 WBC (Bld) 92.6 % 47-70 [facility] Potassium [Moles/Vol] 3.4 mmol/L 3.5-5.1 [facility] Protein [Mass/Vol] 5.2 g/dL 6.4-8.2 [facility] Sodium [Moles/Vol] 143 mmol/L 136-145 [facility] WBC (Bld) [#/Vol] 11.5 10*3/uL 4.4-11.0 [facility] Blood erythrocytes count (nu mber/volume)Ordered By: Dr. Alonzo on 12-18-2022 RBC (Bld) [#/Vol] 3.88 10*6/uL 4.2-5.4 [facility] Blood hemoglobin measurement (mass/volume)Ordered By: Dr. Alonzo on 12-18-2022 Hemoglobin (Bld) [Mass/Vol] 12.8 g/dL 12.0-15.0 [facility] Blood lymphocytes/100 leukoc ytesOrdered By: Dr. Alonzo on 12-18-2022 Lymphocytes/100 WBC (Bld) 3.8 % 19-41 [facility] Blood monocytes/100 leukocyt esOrdered By: Dr. Alonzo on 12-18-2022 Monocytes/100 WBC (Bld) 2.6 % 0-10 [facility] Blood platelet adequacy dete ction by light microscopyOrdered By: Dr. Alonzo on 12-18-2022 Platelets LM Ql (Bld) MKD DEC ADEQ [facility] Blood platelet mean volumeOr dered By: Dr. Alonzo on 12-18-2022 Platelet mean volume (Bld) [Entitic vol] TNP [facility] Comment on above: Test not performed C diff Tox gens Stl Ql CY+p robeon 12-18-2022 C. difficile toxin genes CY+probe Ql (Stl) Positive Abnormal Negative for C. difficile toxin by PCR [facility] Comment on above: Order Comment: Speci tai Type: STOOL SPECIMENOrdering Facility: [facility] Address: [address] [place] [address] Result Comment: A po sitive PCR result may indicate C.difficile infection or colonization. The positive predictive value of this test for C.difficile infection is highest for patients with clinically significant diarrhea (>=3 unformed stools in 24h) who do not have an alternative explanation (e.g., recent receipt of laxatives).Toxin EIA testing will also be performed as recommended by IDSA clinical practice guidelines for institutions without pre-agreed criteria for specimen submission. Performed By: #### Tarsha ALVARADO, 85024-5 ####[facility]ITALCLIA [id number] [address] C. DIFFICILE TOXIN BY EIAon 12-18-2022 C. difficile toxin A+B IA Ql (Stl) Not detected Normal Negative for C. difficile toxin [facility] Comment on above: Order Comment: Speci tai Type: STOOL SPECIMENOrdering Facility: [facility] Address: [address] [place] [address] Result Comment: Toxi n EIA is less sensitive than cell cytotoxin and PCR assays. Clinical correlation of PCR positive/toxin EIA negative results is required to distinguish C. difficle colonization from disease. Performed By: #### Tarsha ALVARADO, 54521-2 ####[facility]ATORYCLIA [id number] [address] [place] CBC W Auto Differential pane l (Bld)on 12-18-2022 Basophils (Bld) [#/Vol] 10*3/uL Normal <0.11 [facility] Comment on above: Order Comment: Speci men Type: BLOOD SPECIMENOrdering Facility: [facility] Address: [address] [place] [address] Performed By: #### 5 7021-8 ####[facility]ATORYCLIA [id number] [address] Basophils/100 WBC (Bld) 0.1 % Normal [facility] Comment on above: Order Comment: Speci men Type: BLOOD SPECIMENOrdering Facility: [facility] Address: [address] [place] [address] Performed By: #### 5 7021-8 ####[facility]ATORYCLIA [id number] [address] Differential cell count method Nom (Bld) Auto Normal [facility] Comment on above: Order Comment: Speci men Type: BLOOD SPECIMENOrdering Facility: [facility] Address: [address] [place] [address] Performed By: #### 5 7021-8 ####[facility]ATORYCLIA [id number] [address] Eosinophils (Bld) [#/Vol] 10*3/uL Normal <0.46 [facility] Comment on above: Order Comment: Speci men Type: BLOOD SPECIMENOrdering Facility: [facility] Address: [address] [place] [address] Performed By: #### 5 7021-8 ####[facility]ORYCLIA [id number] [address] Eosinophils/100 WBC (Bld) 0.0 % Normal [facility] Comment on above: Order Comment: Speci men Type: BLOOD SPECIMENOrdering Facility: [facility] Address: [address] [place] [address] Performed By: #### 5 7021-8 ####[facility]ATORYCLIA [id number] [address] Erythrocyte distribution width (RBC) [Ratio] 14.6 % Normal 11.5-15.0 [facility] Comment on above: Order Comment: Speci men Type: BLOOD SPECIMENOrdering Facility: [facility] Address: [address] [place] [address] Performed By: #### 5 7021-8 ####[facility]ATORYCLIA [id number] [address] [place] Hematocrit (Bld) [Volume fraction] 33.1 % Low 36.0-46.0 [facility] Comment on above: Order Comment: Speci men Type: BLOOD SPECIMENOrdering Facility: [facility] Address: [address] [place] [address] Performed By: #### 5 7021-8 ####[facility]ORYCLIA [id number] [address] [place] Hemoglobin (Bld) [Mass/Vol] 11.2 g/dL Low 11.5-15.5 [facility] Comment on above: Order Comment: Speci men Type: BLOOD SPECIMENOrdering Facility: [facility] Address: [address] [place] [address] Performed By: #### 5 7021-8 ####[facility]ATORYCLIA [id number] [address] [place] Immature granulocytes (Bld) [#/Vol] 0.11 10*3/uL High <0.10 [facility] Comment on above: Order Comment: Speci men Type: BLOOD SPECIMENOrdering Facility: [facility] Address: [address] [place] [address] Performed By: #### 5 7021-8 ####[facility]ORYCLIA [id number] [address] [place] Immature granulocytes/100 WBC (Bld) 0.7 % Normal [facility] Comment on above: Order Comment: Speci men Type: BLOOD SPECIMENOrdering Facility: [facility] Address: [address] [place] [address] Performed By: #### 5 7021-8 ####[facility]ATORYCLIA [id number] [address] [place] Lymphocytes (Bld) [#/Vol] 0.63 10*3/uL Low 1.00-4.00 [facility] Comment on above: Order Comment: Speci men Type: BLOOD SPECIMENOrdering Facility: [facility] Address: [address] [place] [address] Performed By: #### 5 7021-8 ####[facility]ATORYCLIA [id number] [address] Lymphocytes/100 WBC (Bld) 4.1 % Normal [facility] Comment on above: Order Comment: Speci men Type: BLOOD SPECIMENOrdering Facility: [facility] Address: [address] [place] [address] Performed By: #### 5 7021-8 ####[facility]ATORYCLIA [id number] [address] MCH (RBC) [Entitic mass] 32.7 pg Normal 26.0-34.0 [facility] Comment on above: Order Comment: Speci men Type: BLOOD SPECIMENOrdering Facility: [facility] Address: [address] [place] [address] Performed By: #### 5 7021-8 ####[facility]ATORYCLIA [id number] [address] MCHC (RBC) [Mass/Vol] 33.8 g/dL Normal 30.5-36.0 [facility] Comment on above: Order Comment: Speci men Type: BLOOD SPECIMENOrdering Facility: [facility] Address: [address] [place] [address] Performed By: #### 5 7021-8 ####[facility]ORATORYCLIA [id number] [address] STATES [facility] MCV (RBC) [Entitic vol] 96.8 fL Normal 80.0-100.0 [facility] Comment on above: Order Comment: Speci men Type: BLOOD SPECIMENOrdering Facility: [facility] Address: [address] [place] [address] Performed By: #### 5 7021-8 ####[facility] LABORATORYCLIA [id number] [place] [address] [place] Monocytes (Bld) [#/Vol] 0.97 10*3/uL High <0.87 [facility] Comment on above: Order Comment: Speci men Type: BLOOD SPECIMENOrdering Facility: [facility] Address: [address] [address] Performed By: #### 5 7021-8 ####[facility]ATORYCLIA [id number] [address] [place] Monocytes/100 WBC (Bld) 6.3 % Normal [facility] Comment on above: Order Comment: Speci men Type: BLOOD SPECIMENOrdering Facility: [facility] Address: [address] [address] Performed By: #### 5 7021-8 ####[facility]ATORYCLIA [id number] [address] [place] Neutrophils (Bld) [#/Vol] 13.77 10*3/uL High 1.45-7.50 [facility] Comment on above: Order Comment: Speci men Type: BLOOD SPECIMENOrdering Facility: [facility] Address: [address] [address] Performed By: #### 5 7021-8 ####[facility]ATORYCLIA [id number] [address] [place] Neutrophils/100 WBC (Bld) 88.8 % Normal [facility] Comment on above: Order Comment: Speci men Type: BLOOD SPECIMENOrdering Facility: [facility] Address: [address] [address] Performed By: #### 5 7021-8 ####[facility]ORATORYCLIA [id number] [place] [address] [place] Nucleated RBC (Bld) [#/Vol] 10*3/uL Normal <0.01 [facility] Comment on above: Order Comment: Speci men Type: BLOOD SPECIMENOrdering Facility: [facility] Address: [address] [address] Performed By: #### 5 7021-8 ####[facility]ATORYCLIA [id number] [address] [place] Nucleated RBC/100 WBC (Bld) [Ratio] 0.0 /100 WBC Normal [facility] Comment on above: Order Comment: Speci men Type: BLOOD SPECIMENOrdering Facility: [facility] Address: [address] [place] [address] Performed By: #### 5 7021-8 ####[facility]ATORYCLIA [id number] [address] [place] Platelet mean volume (Bld) [Entitic vol] Normal [facility] Comment on above: Order Comment: Speci men Type: BLOOD SPECIMENOrdering Facility: [facility] Address: [address] [place] [address] Result Comment: Unab le to Report. Performed By: #### 5 7021-8 ####[facility]ATORYCLIA [id number] [address] Platelets (Bld) [#/Vol] 29 10*3/uL Low 150-400 [facility] Comment on above: Order Comment: Speci men Type: BLOOD SPECIMENOrdering Facility: [facility] Address: [address] [place] [address] Result Comment: No c lot detected. Performed By: #### 5 7021-8 ####[facility] LABORATORYCLIA [id number] [address] [place] RBC (Bld) [#/Vol] 3.42 10*6/uL Low 3.90-5.20 [facility] Comment on above: Order Comment: Speci men Type: BLOOD SPECIMENOrdering Facility: [facility] Address: [address] [place] [address] Performed By: #### 5 7021-8 ####[facility] LABORATORYCLIA [id number] [address] [place] WBC (Bld) [#/Vol] 15.50 10*3/uL High 3.70-11.00 [facility] Comment on above: Order Comment: Speci men Type: BLOOD SPECIMENOrdering Facility: [facility] Address: [address] [place] [address] Performed By: #### 5 7021-8 ####[facility] LABORATORYCLIA [id number] [place] [address] [place] CBC W Ordered Manual Differe ntial panel (Bld)on 12-18-2022 ANISOCYTOSIS Present Normal [facility] Comment on above: Order Comment: Speci men Type: BLOOD SPECIMENOrdering Facility: [facility] Address: [address] [place] [address] Performed By: #### 5 7782-5, STFREV ####[facility] LABORATORYCLIA [id number] [address] [place] Basophils (Bld) [#/Vol] 0.00 10*3/uL Normal <0.11 [facility] Comment on above: Order Comment: Speci men Type: BLOOD SPECIMENOrdering Facility: [facility] Address: [address] [address] Performed By: #### 5 7782-5, STFREV ####[facility] LABORATORYCLIA [id number] [address] Basophils/100 WBC (Bld) 0.0 % Normal [facility] Comment on above: Order Comment: Speci men Type: BLOOD SPECIMENOrdering Facility: [facility] Address: [address] [place] [address] Performed By: #### 5 7782-5, STFREV ####[facility] LABORATORYCLIA [id number] [address] [place] Differential cell count method Nom (Bld) Manual Normal [facility] Comment on above: Order Comment: Speci men Type: BLOOD SPECIMENOrdering Facility: [facility] Address: [address] [place] [address] Performed By: #### 5 7782-5, STFREV ####[facility]ORATORYCLIA [id number] [address] STATES OF [facility] Eosinophils (Bld) [#/Vol] 0.00 10*3/uL Normal <0.46 [facility] Comment on above: Order Comment: Speci men Type: BLOOD SPECIMENOrdering Facility: [facility] Address: [address] [address] Performed By: #### 5 7782-5, STFREV ####[facility]ORATORYCLIA [id number] [address] Eosinophils/100 WBC (Bld) 0.0 % Normal [facility] Comment on above: Order Comment: Speci men Type: BLOOD SPECIMENOrdering Facility: [facility] Address: [address] [place] [address] Performed By: #### 5 7782-5, STFREV ####[facility] LABORATORYCLIA [id number] [address] Erythrocyte distribution width (RBC) [Ratio] 14.6 % Normal 11.5-15.0 [facility] Comment on above: Order Comment: Speci men Type: BLOOD SPECIMENOrdering Facility: [facility] Address: [address] [place] [address] Performed By: #### 5 7782-5, STFREV ####[facility]ORATORYCLIA [id number] [address] [place] Hematocrit (Bld) [Volume fraction] 31.2 % Low 36.0-46.0 [facility] Comment on above: Order Comment: Speci men Type: BLOOD SPECIMENOrdering Facility: [facility] Address: [address] [place] [address] Performed By: #### 5 7782-5, STFREV ####[facility] LABORATORYCLIA [id number] [address] Hemoglobin (Bld) [Mass/Vol] 10.4 g/dL Low 11.5-15.5 [facility] Comment on above: Order Comment: Speci men Type: BLOOD SPECIMENOrdering Facility: [facility] Address: [address] [place] [address] Performed By: #### 5 7782-5, STFREV ####[facility] LABORATORYCLIA [id number] [address] Lymphocytes (Bld) [#/Vol] 0.67 10*3/uL Low 1.00-4.00 [facility] Comment on above: Order Comment: Speci men Type: BLOOD SPECIMENOrdering Facility: [facility] Address: [address] [place] [address] Performed By: #### 5 7782-5, STFREV ####[facility] LABORATORYCLIA [id number] [address] Lymphocytes/100 WBC (Bld) 4.0 % Normal [facility] Comment on above: Order Comment: Speci men Type: BLOOD SPECIMENOrdering Facility: [facility] Address: [address] [place] [address] Performed By: #### 5 7782-5, STFREV ####[facility] LABORATORYCLIA [id number] [address] [place] MCH (RBC) [Entitic mass] 32.8 pg Normal 26.0-34.0 [facility] Comment on above: Order Comment: Speci men Type: BLOOD SPECIMENOrdering Facility: [facility] Address: [address] [place] [address] Performed By: #### 5 7782-5, STFREV ####[facility] LABORATORYCLIA [id number] [address] STATES OF [facility] MCHC (RBC) [Mass/Vol] 33.3 g/dL Normal 30.5-36.0 [facility] Comment on above: Order Comment: Speci men Type: BLOOD SPECIMENOrdering Facility: [facility] Address: [address] [place] [address] Performed By: #### 5 7782-5, STFREV ####[facility] LABORATORYCLIA [id number] [place] [address] [place] MCV (RBC) [Entitic vol] 98.4 fL Normal 80.0-100.0 [facility] Comment on above: Order Comment: Speci men Type: BLOOD SPECIMENOrdering Facility: [facility] Address: [address] [place] [address] Performed By: #### 5 7782-5, STFREV ####[facility]ORATORYCLIA [id number] [place] [address] [place] Monocytes (Bld) [#/Vol] 1.17 10*3/uL High <0.87 [facility] Comment on above: Order Comment: Speci men Type: BLOOD SPECIMENOrdering Facility: [facility] Address: [address] [place] [address] Performed By: #### 5 7782-5, STFREV ####[facility] LABORATORYCLIA [id number] [address] [place] Monocytes/100 WBC (Bld) 7.0 % Normal [facility] Comment on above: Order Comment: Speci men Type: BLOOD SPECIMENOrdering Facility: [facility] Address: [address] [place] [address] Performed By: #### 5 7782-5, STFREV ####[facility] LABORATORYCLIA [id number] [place] [address] [place] Neutrophils (Bld) [#/Vol] 14.93 10*3/uL High 1.45-7.50 [facility] Comment on above: Order Comment: Speci men Type: BLOOD SPECIMENOrdering Facility: [facility] Address: [address] [place] [address] Performed By: #### 5 7782-5, STFREV ####[facility] LABORATORYCLIA [id number] [address] [place] Neutrophils/100 WBC (Bld) 89.0 % Normal [facility] Comment on above: Order Comment: Speci men Type: BLOOD SPECIMENOrdering Facility: [facility] Address: [address] [address] Performed By: #### 5 7782-5, STFREV ####[facility] LABORATORYCLIA [id number] [address] STATES [facility] Nucleated RBC (Bld) [#/Vol] 0.17 10*3/uL High <0.01 [facility] Comment on above: Order Comment: Speci men Type: BLOOD SPECIMENOrdering Facility: [facility] Address: [address] [address] Performed By: #### 5 7782-5, STFREV ####[facility] LABORATORYCLIA [id number] [address] OF [facility] Nucleated RBC/100 WBC (Bld) [Ratio] 1.0 /100 WBC Normal [facility] Comment on above: Order Comment: Speci men Type: BLOOD SPECIMENOrdering Facility: [facility] Address: [address] [place] [address] Performed By: #### 5 7782-5, STFREV ####[facility] LABORATORYCLIA [id number] [address] Pappenheimer bodies LM Ql (Bld) Occasional Normal [facility] Comment on above: Order Comment: Speci men Type: BLOOD SPECIMENOrdering Facility: [facility] Address: [address] [place] [address] Performed By: #### 5 7782-5, STFREV ####[facility] LABORATORYCLIA [id number] [address] [place] Platelet mean volume (Bld) [Entitic vol] 11.9 fL Normal 9.0-12.7 [facility] Comment on above: Order Comment: Speci men Type: BLOOD SPECIMENOrdering Facility: [facility] Address: [address] [place] [address] Performed By: #### 5 7782-5, STFREV ####[facility] LABORATORYCLIA [id number] [address] [place] Platelets (Bld) [#/Vol] 64 10*3/uL Low 150-400 [facility] Comment on above: Order Comment: Speci men Type: BLOOD SPECIMENOrdering Facility: [facility] Address: [address] [address] Result Comment: Plat elet count confirmed by manual review of peripheral blood smear. No clot detected. Performed By: #### 5 7782-5, STFREV ####[facility] LABORATORYCLIA [id number] [place] [address] [place] Platelets Estimate (Bld) [#/Vol] Decreased Normal [facility] Comment on above: Order Comment: Speci men Type: BLOOD SPECIMENOrdering Facility: [facility] Address: [address] [place] [address] Performed By: #### 5 7782-5, STFREV ####[facility] LABORATORYCLIA [id number] [address] [place] Polychromasia LM Ql (Bld) Slight Normal [facility] Comment on above: Order Comment: Speci men Type: BLOOD SPECIMENOrdering Facility: [facility] Address: [address] [address] Performed By: #### 5 7782-5, STFREV ####[facility]ATORYCLIA [id number] [place] [address] [place] RBC (Bld) [#/Vol] 3.17 10*6/uL Low 3.90-5.20 [facility] Comment on above: Order Comment: Speci men Type: BLOOD SPECIMENOrdering Facility: [facility] Address: [address] [address] Performed By: #### 5 7782-5, STFREV ####[facility]ORATORYCLIA [id number] [place] [address] [place] RBC FRAGMENTS Few Abnormal None Seen [facility] Comment on above: Order Comment: Speci men Type: BLOOD SPECIMENOrdering Facility: [facility] Address: [address] [address] Performed By: #### 5 7782-5, STFREV ####[facility] LABORATORYCLIA [id number] [place] [address] [facility] RED CELL MORPH Reviewed: see result s of individual morphologies Normal [facility] Comment on above: Order Comment: Speccy lujan Type: BLOOD SPECIMENOrdering Facility: [facility] Address: [address] [place] [address] Performed By: #### 5 7782-5, STFRCORBY ####[facility] LABORATORYCLIA [id number] [place] [address] [place] WBC (Bld) [#/Vol] 16.77 10*3/uL High 3.70-11.00 [facility] Comment on above: Order Comment: Speccy lujan Type: BLOOD SPECIMENOrdering Facility: [facility] Address: [address] [place] [address] Performed By: #### 5 7782-5, STMARYANN ####[facility] LABORATORYCLIA [id number] [address] [place] CNCRITCRon 12-18-2022 CNCRITCR Critical Care Transport (CCT) JAZMIN JOHNSON ([id number]) 1950 F CHT Date Time Provider Department 12/18/22 GERMAINE [facility]ILA CCT During your visit today, we recorded the following information about you: Germaine Avila APRN.CNP 12/18/2022 11:41 AM Signed CRITICAL CARE TRANSPORT MEDICAL CONTROL CONSULT NOTE Patient Name: Jazmin Johnson Service Date: December 18, 2022 Referring Facility: [facility] Accepting Facility: [facility] REASON FOR TRANSPORT: Pt requires specialized neurological evaluation, possible continuous EEG monitoring, these services are not available at the referring facility REASON FOR CONSULT: pt intubated and requires sedation, possible focal seizure activity CCT MEDICAL CONTROL CONSULT SUMMARY: History, physical exam findings, and available background patient information from CCT Transport Nurse were reviewed at the time of consult. 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 Pt was intubated for airway protection. Sedation discontinued >24 hours ago, pt still not following commands. PLAN: Multiple factors considered including: patient history/condition/traj ectory/stability, referring and receiving destinations, duration of transport time, medications and therapies available during transport, patient safety, as well as crew capabilities. Orders given for: Propofol infusion Plan of care and orders confirmed and read back via telephone with CCT Transport anthropology faculty member, Daron Kahn RN SIGNATURE: Germaine Avila APRN.[employer] Acute Care Nurse Practitioner Critical Care Transport Allergies As of Date: 12/18/2022 (No Known Allergies) Date Reviewed: 12/18/2022 Reviewed by: Morales Kahn RN - Fully Assessed Reason for Visit: Critical Care Transport [1718] Cmt: Prescriptions as of 12/18/2022 - acetaminophen (TYLENOL) 500 mg tablet Take 2 tablets by mouth every 8 hours as needed for pain. - valACYclovir (VALTREX) 500 mg tablet Take 1 tablet by mouth twice daily. 1 tablet twice daily x 3d for outbreak or daily for suppression - atorvastatin (LIPITOR) 80 mg tablet atorvastatin 80 mg tablet - levothyroxine sodium (SYNTHROID ORAL) Synthroid oral - trazodone HCl (TRAZODONE ORAL) trazodone oral Facility-Administered Medications as of 12/18/2022 - atorvastatin 80 mg tab(s) (LIPITOR) - potassium chloride ER 20-40 mEq tab(s) (K-DUR, KLOR-CON) - potassium chloride iv piggyback 20 mEq/100 mL - magnesium sulfate iv piggyback in sterile water 2 g 50 mL - phosphorus 500 mg tab(s) (K PHOS NEUTRAL) - calcium gluconate 4 g in NaCl 0.9% 250 mL - NaCl 0.9% iv flush bag - propofol infusion (DIPRIVAN) - Chlorhexidine Gluconate 0.12 % 15 mL (PERIDEX) - ipratropium-albuterol 3 mL nebulizer solution (DUONEB) - pantoprazole 40 mg oral liquid (PROTONIX) - sodium chloride 0.9 % (flush) 2-10 mL (BD POSIFLUSH) - perflutren lipid microspheres 1.1 mg/mL 1.3 mL injection (DEFINITY) - levETIRAcetam 500 mg tab(s) (KEPPRA) - thiamine 100 mg in NaCl 0.9% 50 mL (VITAMIN B1) - folic acid 1 mg tab(s) - therapeutic multivitamin-minerals tablet (THERA-M PLUS) - piperacillin-tazobacta m iv piggyback 3.375 g in dextrose (iso-osmotic) 50 mL (ZOSYN) - potassium phosphate 45 mmol in NaCl 0.9% 500 mL Problem List As Of Date 12/18/2022 Noted Resolved Subarachnoid haematoma [S06.6XAA] 09/14/2022 Fall [W19.XXXA] 09/15/2022 ETOH abuse [F10.10] 09/15/2022 Traumatic subdural hematoma with loss of consci*09/15/2022 Hypokalemia [E87.6] 09/15/2022 09/27/2022 Elevated liver enzymes [R74.8] 09/15/2022 09/27/2022 Hypophosphatemia [E83.39] 09/16/2022 09/27/2022 Malnutrition of mild degree (HCC) [E44.1] 09/24/2022 09/27/2022 Acute respiratory failure (HCC) [J96.00] 12/18/2022 Seizure (HCC) [R56.9] 12/18/2022 Acute hyperactive alcohol withdrawal delirium (*12/18/2022 Thrombocytopenia (HCC) [D69.6] 12/18/2022 Hypothyroidism [E03.9] 12/18/2022 Prescriptions ordered this encounter Disp Refills Start End PROPOFOL 10 MG/ML INTRAVENOUS EMULSI* 12/18/2022 12/18/2022 Route: INTRAVENOUS Disc: Auto DC at discharge. Medications Discontinued During This Encounter Prescriptions - propofol infusion (DIPRIVAN) (Discontinued) Encounter Status:Closed by MORALES KAHN on 12/18/22 Normal [facility] CONSULTon 12-18-2022 CONSULT Normal [facility] CONSULT Normal [facility] CONSULT PROGon 12-18-2022 CONSULT PROG Normal [facility] SOWMYA DIRECTon 12-18-2022 DAGT, POLYSPECIFIC AHG Negative Normal [facility] Comment on above: Order Comment: Speci men Type: BLOOD SPECIMENOrdering Facility: [facility] Address: [address] [place] [address] Performed By: #### T SCR, DAGT ####[facility] BLO[facility] BANKCLIA [id number] [address] OF [facility] CT BRAIN WO IVCONon 12-19-[address] BRAIN WO IVCON Normal [facility] Comprehensive metabolic 2000 panelon 12-18-2022 Albumin [Mass/Vol] 2.7 g/dL Low 3.9-4.9 [facility] Comment on above: Order Comment: Speci men Type: BLOOD SPECIMENOrdering Facility: [facility] Address: [address] [place] [address] Performed By: #### 2 777-1, 46578-0, 16298-9, 42512-0 ####[facility] LABORATORYCLIA [id number] [address] [place] ALP [Catalytic activity/Vol] 76 U/L Normal 34-123 [facility] Comment on above: Order Comment: Speci men Type: BLOOD SPECIMENOrdering Facility: [facility] Address: [address] [place] [address] Performed By: #### 2 777-1, 24607-1, 15099-2, 41009-1 ####[facility] LABORATORYCLIA [id number] [address] STATES OF [facility] ALT With P-5'-P [Catalytic activity/Vol] 24 U/L Normal 7-38 [facility] Comment on above: Order Comment: Speci men Type: BLOOD SPECIMENOrdering Facility: [facility] Address: [address] [address] Performed By: #### 2 777-1, 83147-9, 88878-3, 80435-2 ####[facility] LABORATORYCLIA [id number] [place] [address] [place] Anion gap [Moles/Vol] 9 mmol/L Normal 9-18 [facility] Comment on above: Order Comment: Speci men Type: BLOOD SPECIMENOrdering Facility: [facility] Address: [address] [place] [address] Performed By: #### 2 777-1, 03995-1, 53216-6, 99274-0 ####[facility] LABORATORYCLIA [id number] [place] [address] [place] AST With P-5'-P [Catalytic activity/Vol] 43 U/L High 13-35 [facility] Comment on above: Order Comment: Speci men Type: BLOOD SPECIMENOrdering Facility: [facility] Address: [address] [place] [address] Performed By: #### 2 777-1, 16311-2, 92486-2, 80255-3 ####[facility] LABORATORYCLIA [id number] [place] [address] [place] Bilirubin [Mass/Vol] 0.9 mg/dL Normal 0.2-1.3 [facility] Comment on above: Order Comment: Speci men Type: BLOOD SPECIMENOrdering Facility: [facility] Address: [address] [place] [address] Performed By: #### 2 777-1, 64387-1, 41786-0, 95532-5 ####[facility] LABORATORYCLIA [id number] [address] [place] Calcium [Mass/Vol] 9.7 mg/dL Normal 8.5-10.2 [facility] Comment on above: Order Comment: Speci men Type: BLOOD SPECIMENOrdering Facility: [facility] Address: [address] [place] [address] Performed By: #### 2 777-1, 88650-8, 43141-6, 32228-2 ####[facility] LABORATORYCLIA [id number] [place] [address] [place] Chloride [Moles/Vol] 110 mmol/L High 97-105 [facility] Comment on above: Order Comment: Speci men Type: BLOOD SPECIMENOrdering Facility: [facility] Address: [address] [place] [address] Performed By: #### 2 777-1, 10951-8, 64542-1, 17678-2 ####[facility] LABORATORYCLIA [id number] [address] [place] CO2 [Moles/Vol] 21 mmol/L Low 22-30 [facility] Comment on above: Order Comment: Speci men Type: BLOOD SPECIMENOrdering Facility: [facility] Address: [address] [place] [address] Performed By: #### 2 777-1, 54839-1, 81525-6, 15948-1 ####[facility]ITALCL[facility] [id number] [address] STATES OF [facility] Creatinine [Mass/Vol] 0.72 mg/dL Normal 0.58-0.96 [facility] Comment on above: Order Comment: Speci men Type: BLOOD SPECIMENOrdering Facility: [facility] Address: [address] [place] [address] Performed By: #### 2 777-1, 07853-4, 31570-5, 16961-4 ####[facility] LABORATORYCLIA [id number] [address] OF [facility] ESTIMATED GLOMERULAR FILTRATION RATE 90 mL/min/1.73m??? Normal >=60 [facility] Comment on above: Order Comment: Speci men Type: BLOOD SPECIMENOrdering Facility: [facility] Address: [address] [place] [address] Result Comment: Mariely mated Glomerular Filtration Rate (eGFR) is calculated using the 2020 CKD-EPI creatinine equation. This equation utilizes serum creatinine, sex, and age as parameters. The creatinine assay has traceable calibration to isotope dilution-mass spectrometry. Refer to KDIGO guidelines for clinical interpretation. In patients with unstable renal function, e.g. those with acute kidney injury, the eGFR may not accurately reflect actual GFR. Performed By: #### 2 777-1, 84929-1, 41534-1, 44361-3 ####[facility] LABORATORYCLIA [id number] [place] [address] [place] Glucose [Mass/Vol] 153 mg/dL High 74-99 [facility] Comment on above: Order Comment: Cary lujan Type: BLOOD SPECIMENOrdering Facility: [facility] Address: [address] [place] [address] Result Comment: The [place] [employer] (ADA) provides guidance for cutoff values for fasting glucose and random glucose. The ADA defines fasting as no caloric intake for at least 8 hours. Fasting plasma glucose results between 100 to 125 mg/dL indicate increased risk for diabetes (prediabetes).Fasting plasma glucose results greater than or equal to 126 mg/dL meet the criteria for diagnosis of diabetes. In the absence of unequivocal hyperglycemia, results should be confirmed by repeat testing. In a patient with classic symptoms of hyperglycemia or hyperglycemic crisis, random plasma glucose results greater than or equal to 200 mg/dL meet the criteria for diagnosis of diabetes.Reference: Standards of Medical Care in Diabetes 2016, [place] [employer]. Diabetes Care. 2016.39(Suppl 1). Performed By: #### 2 777-1, 60830-2, 43699-4, 23701-2 ####[facility] LABORATORYCLIA [id number] [place] [id number] [place] Potassium [Moles/Vol] 3.2 mmol/L Low 3.7-5.1 [facility] Comment on above: Order Comment: Cary lujan Type: BLOOD SPECIMENOrdering Facility: [facility] Address: [address] [place] [id number] Performed By: #### 2 777-1, 44333-2, 68977-5, 33842-0 ####[facility] LABORATORYCLIA [id number] [address] [place] Protein [Mass/Vol] 5.0 g/dL Low 6.3-8.0 [facility] Comment on above: Order Comment: Speci men Type: BLOOD SPECIMENOrdering Facility: [facility] Address: [address] [place] [address] Performed By: #### 2 777-1, 08006-1, 64314-5, 05638-0 ####[facility] LABORATORYCLIA [id number] [address] STATES OF [facility] Sodium [Moles/Vol] 140 mmol/L Normal 136-144 [facility] Comment on above: Order Comment: Speci men Type: BLOOD SPECIMENOrdering Facility: [facility] Address: [address] [place] [address] Performed By: #### 2 777-1, 82876-7, 12776-1, 29630-2 ####[facility] LABORATORYCLIA [id number] [address] [place] Urea nitrogen [Mass/Vol] 38 mg/dL High 7-21 [facility] Comment on above: Order Comment: Speci men Type: BLOOD SPECIMENOrdering Facility: [facility] Address: [address] [place] [address] Performed By: #### 2 777-1, 47002-9, 71028-9, 90889-4 ####[facility] LABORATORYCLIA [id number] [address] [place] Culture, urineOrdered By: Dr Timothy Han on 12-18-2022 Bacteria identified Cx Nom (U) Escherichia coli [facility] D dimer FEU PPP-mCncon 12-18 Fibrin D-dimer FEU (PPP) [Mass/Vol] 25717 ng/mL FEU High <500 [facility] Comment on above: Order Comment: Speci men Type: BLOOD SPECIMENOrdering Facility: [facility] Address: [address] [place] [address] Performed By: #### 3 255-7, 83342-4, 38861-3, 93876-6 ####[facility] LABORATORYCLIA [id number] [address] [place] Determination of erythrocyte mean corpuscular volume (MCV)Ordered By: Dr. Alonzo on 12-18-2022 MCV (RBC) [Entitic vol] 102.8 fL 81-99 [facility] Comment on above: Delta: 97.8 on 12/17 ECG COMPLETEon 12-18-2022 ECG COMPLETE Normal [facility] Fibrin D-dimer FEU (PPP) [Ma ss/Vol]on 12-18-2022 D DIMER AGE-RELATED CUTOFF 710 ng/mL FEU Normal [facility] Comment on above: Order Comment: Speci men Type: BLOOD SPECIMENOrdering Facility: [facility] Address: [address] [place] [address] Performed By: #### 3 255-7, 39648-2, 57680-2, 44578-6 ####[facility] LABORATORYCLIA [id number] [address] [place] Fibrinogen PPP-mCncon 2022 Fibrinogen Coag (PPP) [Mass/Vol] 238 mg/dL Normal 200-400 [facility] Comment on above: Order Comment: Speci men Type: BLOOD SPECIMENOrdering Facility: [facility] Address: [address] [place] [address] Performed By: #### 3 255-7 ####[facility] LABORATORYCLIA [id number] [address] [place] Fibrinogen Coag (PPP) [Mass/Vol] 135 mg/dL Low 200-400 [facility] Comment on above: Order Comment: Speci men Type: BLOOD SPECIMENOrdering Facility: [facility] Address: [address] [place] [address] Performed By: #### 3 255-7, 65015-9, 40619-2, 93064-2 ####[facility] LABORATORYCLIA [id number] [address] [place] Glucose Glucometer (BldC) [M ass/Vol]Ordered By: Dr. Alonzo on 12-18-2022 Glucose [Mass/Vol] 130 mg/dL 74-106 [facility] Comment on above: MANAGEMENT OF PATIEN T CARE PER NURSING PROTOCOL HBV core Ab Ser Qlon 023 HBV core Ab Ql (S) Negative Normal Negative [facility] Comment on above: Order Comment: Cary lujan Type: BLOOD SPECIMENOrdering Facility: [facility] Address: [address] [place] [address] Result Comment: No e vidence of current or past infection with Hepatitis B virus. Should recent infection be suspected, repeat testing may be considered 3-4 weeks after this draw. Performed By: #### 1 6933-4 ####[facility] LABCLIA [id number] [address] OF [facility] HBV surface Ab Ql (S)on HBV surface Ab Qn (S) 8.87 mIU/mL Low >=11.50 [facility] Comment on above: Order Comment: [facility] Type: BLOOD SPECIMENOrdering Facility: [facility] Address: [address] [place] [address] Performed By: #### 2 2322-2 ####[facility] HOSPITALIA [id number] [address] STATES OF [facility] HBV surface Ab Ser Qlon HBV surface Ab Ql (S) Indeterminate Abnormal Positive [facility] Comment on above: Order Comment: [facility] Type: BLOOD SPECIMENOrdering Facility: [facility] Address: [address] [place] [address] Performed By: #### 2 2322-2 ####[facility] LABORATORYCLIA [id number] [address] HBV surface Ag Ser Qlon HBV surface Ag Ql (S) Non-Reactive Normal Nonreactive [facility] Comment on above: Order Comment: [facility] Type: BLOOD SPECIMENOrdering Facility: [facility] Address: [address] [place] [address] Performed By: #### 5 195-3, 18461-0, 33113-3 ####[facility] LAB[facility]ATORYCLIA [id number] [address] HCV Ab Ser Qlon 12-18-2022 HCV Ab Ql (S) Non-Reactive Normal Nonreactive [facility] Comment on above: Order Comment: Speci men Type: BLOOD SPECIMENOrdering Facility: [facility] Address: [address] [place] [address] Result Comment: The result suggests no evidence of active infection with Hepatitis C virus. Should recent infection be suspected, repeat testing may be considered 4-6 weeks after this draw. Performed By: #### 5 195-3, 11013-8, 89406-7 ####[facility]IA [id number] [address] HIV 1+2 Ab IA Qlon 3 HIV 1 and 2 Ab IA.rapid Nom Normal [facility] Comment on above: Order Comment: Speci men Type: BLOOD SPECIMENOrdering Facility: [facility] Address: [address] [place] [address] Result Comment: Test not indicated. Performed By: #### 5 195-3, 89606-6, 34707-9 ####[facility]ITALCLIA [id number] [address] HIV 1+2 Ab+HIV1 p24 Ag IA Ql Non-Reactive Normal Nonreactive [facility] Comment on above: Order Comment: Speci men Type: BLOOD SPECIMENOrdering Facility: [facility] Address: [address] [place] [address] Result Comment: [place] Rev. Code 3701.243(E): This information has been disclosed to you from confidential records protected from disclosure by state law. ???You shall make no further disclosure of this information without the specific, written, and informed release of the individual to whom it pertains or as otherwise permitted by state law. A general authorization for the release of medical or other information is not sufficient for the purpose of the release of HIV test results or diagnoses.Test methodology for this assay has moved from Siemens Vinoboaur XP to Cole juan antonio 8000 effective July 17, 2022. Please note there may be a change in the reporting units and/or reference range. Performed By: #### 5 195-3, 78341-8, 61716-3 ####[facility] LABORATORYCLIA [id number] [address] [place] HIVINT Normal [facility] Comment on above: Order Comment: Speci men Type: BLOOD SPECIMENOrdering Facility: [facility] Address: [address] [place] [address] Result Comment: No e vidence of HIV-1 or HIV-2 infection. Should recent infection be suspected, repeat testing may be considered 2-3 weeks after this draw. Performed By: #### 5 195-3, 16111-9, 99613-9 ####[facility] LABORATORYCLIA [id number] [address] [place] Haptoglob SerPl-mCncon 12-18 Haptoglobin [Mass/Vol] 76 mg/dL Normal 31-238 [facility] Comment on above: Order Comment: Speci men Type: BLOOD SPECIMENOrdering Facility: [facility] Address: [address] [place] [address] Performed By: #### 4 542-7, 2531-0 ####[facility] LABORATORYCLIA [id number] [address] [place] Hematocrit Auto (Bld) [Volum e fraction]Ordered By: Dr. Alonzo on 12-18-2022 Hematocrit (Bld) [Volume fraction] 39.9 % 37-47 [facility] LDH SerPl-cCncon 12-18-2022 LDH [Catalytic activity/Vol] 491 U/L High 135-214 [facility] Comment on above: Order Comment: Speci men Type: BLOOD SPECIMENOrdering Facility: [facility] Address: [address] [address] Performed By: #### 4 542-7, 2-0 ####[facility] LABORATORYCLIA [id number] [address] [place] Laboratory - Chemistry and C hemistry - challengeOrdered By: Dr. Alonzo on 12-18-2022 ALP [Catalytic activity/Vol] 70 U/L 45-117 [facility] ALT [Catalytic activity/Vol] 37 U/L 13-56 [facility] CO2 [Moles/Vol] 21.0 mmol/L 21.0-32.0 [facility] Globulin (S) [Mass/Vol] 3.2 g/dL 2.2-4.2 [facility] Urea nitrogen/Creatinine [Mass ratio] 42.3 mg/mg 10-20 [facility] Laboratory - Chemistry and C hemistry - challengeOrdered By: Dr. Robert on 12-18-2022 Magnesium [Mass/Vol] 1.6 mg/dL 1.6-2.6 [facility] Laboratory - Hematology and Cell countsOrdered By: Dr. Alonzo on 12-18-2022 Anisocytosis Ql (Bld) 1+ [facility] Erythrocyte distribution width (RBC) [Entitic vol] 56.1 fL 35.1-43.9 [facility] Erythrocyte distribution width (RBC) [Ratio] 14.7 % 11.6-14.6 [facility] Immature granulocytes/100 WBC (Bld) 0.800 % 0.0-0.9 [facility] Comment on above: IG% - Immature Granu locytes (promyelocytes, myelocytes and metamyelocytes) > 1% indicates that a LEFT SHIFT is Present. MCH (RBC) [Entitic mass] 33.0 pg 27.0-32.0 [facility] Nucleated RBC/100 WBC (Bld) [Ratio] 0 % 0-5 [facility] MCHC Auto (RBC) [Mass/Vol]Or dered By: Dr. Alonzo on 12-18-2022 MCHC (RBC) [Mass/Vol] 32.1 g/dL 32-36 [facility] Macrocytes detectionOrdered By: Dr. Alonzo on 12-18-2022 Macrocytes Ql (Bld) 1+ [facility] Magnesium SerPl-mCncon 12-18 Magnesium [Mass/Vol] 1.4 mg/dL Low 1.7-2.3 [facility] Comment on above: Order Comment: Speci men Type: BLOOD SPECIMENOrdering Facility: [facility] Address: [address] [place] [address] Performed By: #### 2 777-1, 82860-5, 15603-0, 92909-6 ####[facility]ATORYCLIA [id number] [address] [place] NURSING PROGon 12-18-2022 NURSING PROG Normal [facility] No Panel InformationOrdered By: Dr. Alonzo on 12-18-2022 Estimated Creatinine Clearance Calc 47.43 ml/min [facility] Estimated GFR (MDRD) Amer 79 mL/min >60 [facility] Comment on above: GFR Calc Estimated GFR (MDRD) Non-Af Amer 66 mL/min >60 [facility] Comment on above: Non- GFR Calc PATHOLOGIST INTERPRETATION C BC/DIFFon 12-18-2022 Real Estate Site Analyst review Ifeanyi (Unsp spec) [Interp] Reviewed by Kenzie Cameron MD [facility] Comment on above: Order Comment: Speci men Type: BLOOD SPECIMENOrdering Facility: [facility] Address: [address] [place] [address] Performed By: #### 5 7782-5, STFREV ####[facility] LABORATORYIA [id number] [address] STAFF REVIEW, CBCDIF Review of the peripheral smear reveals normocytic anemia, thrombocytopenia and luekocytosis. There are infrequent red cell fragments. Leukocytes have normal morphology. Normal [facility] Comment on above: Order Comment: Speci men Type: BLOOD SPECIMENOrdering Facility: [facility] Address: [address] [place] [address] Performed By: #### 5 7782-5, STFREV ####[facility] LABORATORYCLIA [id number] [address] [place] PT panel Coag (PPP)on 2022 INR Coag (PPP) [Relative time] 1.9 {INR} High 0.9-1.3 [facility] Comment on above: Order Comment: Speci men Type: BLOOD SPECIMENOrdering Facility: [facility] Address: [place] [facility] [place] [phone] Result Comment: Adele min K Antagonist (VKA) Therapeutic Range: INR 2 to 3 (Target INR of 2.5)Note: For patients treated with VKA drugs, such as warfarin, the [place] [employer] 2012 Guideline recommends a therapeutic INR range of 2 to 3 (target INR of 2.5). This recommendation includes high-risk patients with antiphospholipid syndrome with previous arterial or venous thromboembolism, current-generation mechanical or bioprosthetic aortic heart valve replacement.Note: Patients with mechanical aortic valve replacement and additional risk factors for thromboembolic events (atrial fibrillation, previous thromboembolism, LV dysfunction, hypercoagulable conditions) or an older generation mechanical AVR (i.e., ball in-Cage) or any mechanical MVR should have a INR therapeutic range of 2.5 to 3.5 (target INR of 3).Freddy GH, et al. Chest 2012, 141:7S-47SNishimlexi RA, et al. [facility] 2017, 70: 252-289 Performed By: #### 3 255-7, 03168-0, 90321-0, 91050-6 ####[facility] HOSPITALIA [id number] [place] [address] [place] PT Coag (PPP) [Time] 19.8 s High 9.7-13.0 [facility] Comment on above: Order Comment: Cary lujan Type: BLOOD SPECIMENOrdering Facility: [facility] Address: [address] [place] [address] Performed By: #### 3 255-7, 62503-2, 14200-2, 22292-8 ####[facility] LABORATORYCLIA [id number] [place] [id number] [place] Phosphate SerPl-mCncon 12-18 Phosphate [Mass/Vol] 1.2 mg/dL Low 2.7-4.8 [facility] Comment on above: Order Comment: Cary lujan Type: BLOOD SPECIMENOrdering Facility: [facility] Address: [address] [place] [address] Performed By: #### 2 777-1, 63371-7, 03145-4, 51416-9 ####[facility] LABORATORYCLIA [id number] [place] [address] [facility] Platelets bldOrdered By: Dr. Alonzo on 12-18-2022 Platelets (Bld) [#/Vol] 19 10*3/uL 150-450 [facility] Comment on above: CRITICAL VALUE VERIF IED. CALLED TO Susan ROSENBERG RN ICU12/18/22 0403 Santhosh Hensley.RESULTS READ BACK BY SAME. Procalcitonin SerPl-mCncon 0 12-18-2022 Procalcitonin [Mass/Vol] 4.83 ng/mL High <0.09 [facility] Comment on above: Order Comment: Speci men Type: BLOOD SPECIMENOrdering Facility: [facility] Address: [address] [place] [phone] Result Comment: For a guided interpretation of test results, please visit the Change in Procalcitonin Calculator, [email or web address]. Performed By: #### 2 777-1, 31786-9, 20612-9, 49603-9 ####[facility] LABORATORYCLIA [id number] [place] [id number] [facility] Review by pathologistOrdered By: Dr. Alonzo on 12-18-2022 Pathologist review Ifeanyi (Unsp spec) [Interp] Madeline anderson [facility] Pathologist review Ifeanyi (Unsp spec) [Interp] Reviewed [facility] Comment on above: Previous reported re sult: Madeline anderson Edited by: RGOOD on 12/18/22:1332Neutrophilic leukocytosis.Macrocytosis. Marked Thrombocytopenia.Clinical correlation necessary.Bret Bridges M.D. 12/18/22 AMENDED REPORT 12/18/22 1332 PATH REV previously reported as: Madeline anderson SARS-CoV-2 RNA Resp Ql CY+p robeon 12-18-2022 SARS-CoV-2 (COVID-19) RNA CY+probe Ql (Resp) COVID 19 RESULT: Not detected The method used is RT-PCR or an equivalent NAAT method. Reference Range(the expected result in uninfected individuals): Not detected Normal [facility] Comment on above: Performed By: #### 9 4500-6 ####[facility] LABORATORYCLIA [id number] [address] OF [facility] STAPH AUREUS PCRon S. aureus and MRSA panel CY+probe (Nose) Normal Negative [facility] Comment on above: Order Comment: Speci men Type: SWAB OF INTERNAL NOSEOrdering Facility: [facility] Address: [address] [place] [address] Result Comment: Nega tive for Staphylococcus aureus by PCR.Negative for MRSA by PCR Performed By: #### S APCR ####[facility] LABORATORYCLIA [id number] [address] [place] Salicylates SerPl-mCncon Salicylates [Mass/Vol] mg/dL Low 3.0-30.0 [facility] Comment on above: Order Comment: Speci men Type: BLOOD SPECIMENOrdering Facility: [facility] Address: [address] [place] [address] Result Comment: The therapeutic range varies and has been reported to be 3.0 to 10.0 mg/dL for anti pyretic/analgesic conditions and 15.0 to 30.0 mg/dL for anti inflammatory/rheumatic fever conditions. Ranges published by the instrument folder gluer operator.Reference ranges and high/low indicator flags are provided as general guidelines only. The treating physician must determine appropriate target levels/dosing based on the specific clinical situation. Performed By: #### 3 298-7, 4024-6 ####[facility] LABORATORYCLIA [id number] [place] [address] [place] Serum or plasma albumin cony urement (mass/volume)Ordered By: Dr. Alonzo on 12-18-2022 Albumin [Mass/Vol] 2.0 g/dL 3.2-5.0 [facility] Serum or plasma albumin/glob ulin mass ratioOrdered By: Dr. Alonzo on 12-18-2022 Albumin/Globulin [Mass ratio] 0.6 {ratio} 0.9-2.4 [facility] Serum or plasma calcium cony urement (mass/volume)Ordered By: Dr. Alonzo on 12-18-2022 Calcium [Mass/Vol] 9.8 mg/dL 8.5-10.1 [facility] Serum or plasma creatinine m easurement (mass/volume)Ordered By: Dr. Alonzo on 12-18-2022 Creatinine [Mass/Vol] 0.90 mg/dL 0.55-1.02 [facility] Comment on above: The validity of the calculated GFR & GFRAA in patients over 70 years has not been determined. Clinical correlation is essential. Serum or plasma urea nitroge n measurement (mass/volume)Ordered By: Dr. Alonzo on 12-18-2022 Urea nitrogen [Mass/Vol] 38 mg/dL 7-18 [facility] TYPE + SCREENon 12-18-2022 ABO A Normal [facility] Comment on above: Order Comment: Speci men Type: BLOOD SPECIMENOrdering Facility: [facility] Address: [address] [place] [address] Performed By: #### T SCR, DAGT ####[facility] BANKCLIA [id number] [address] STATES OF [facility] HISTORICAL AB SCR STATUS Negative [facility] Comment on above: Order Comment: Speci men Type: BLOOD SPECIMENOrdering Facility: [facility] Address: [address] [place] [address] Performed By: #### T SCR, DAGT ####[facility] BLO[facility] BANKCLIA [id number] [address] [place] Rh Nom (Bld) Positive [facility] Comment on above: Order Comment: Speci men Type: BLOOD SPECIMENOrdering Facility: [facility] Address: [address] [place] [address] Performed By: #### T SCR, DAGT ####[facility] BLO[facility] BANKCLIA [id number] [address] [place] TYPE AND SCREEN EXPIRATION 12/21/2022 23:59 Normal [facility] Comment on above: Order Comment: Speci men Type: BLOOD SPECIMENOrdering Facility: [facility] Address: [address] [address] Performed By: #### T SCR, DAGT ####[facility] BLOOD BANKCLIA [id number] [address] STATES OF [facility] Thin prep Papanicolaou smear with manual screeningOrdered By: Dr. Alonzo on 12-18-2022 Thin prep Papanicolaou smear with manual screening 78 U/L 15-37 [facility] Thin prep Papanicolaou smear with manual screening 10 5-15 [facility] Urinalysis complete panel (U )on 12-18-2022 Bacteria LM.HPF (Urine sed) [#/Area] Rare Abnormal None Seen [facility] Comment on above: Order Comment: Speci men Type: URINE SPECIMENOrdering Facility: [facility] Address: [address] [address] Performed By: #### 2 4356-8 ####[facility] LABORATORYCLIA [id number] [place] [address] [place] Bilirubin Ql (U) Negative Normal Negative [facility] Comment on above: Order Comment: Speci men Type: URINE SPECIMENOrdering Facility: [facility] Address: [address] [place] [address] Performed By: #### 2 4356-8 ####[facility] LABORATORYCLIA [id number] [address] [place] Clarity (Unsp spec) Clear Normal Clear [facility] Comment on above: Order Comment: Speci men Type: URINE SPECIMENOrdering Facility: [facility] Address: [address] [place] [address] Performed By: #### 2 4356-8 ####[facility]ORYCLIA [id number] [address] [place] Color (U) Yellow Normal yellow [facility] Comment on above: Order Comment: Speci men Type: URINE SPECIMENOrdering Facility: [facility] Address: [address] [place] [address] Performed By: #### 2 4356-8 ####[facility]ATORYCLIA [id number] [address] Epithelial cells LM.HPF (Urine sed) [#/Area] Few Abnormal None Seen [facility] Comment on above: Order Comment: Speci men Type: URINE SPECIMENOrdering Facility: [facility] Address: [address] [place] [address] Performed By: #### 2 4356-8 ####[facility]ATORYCLIA [id number] [address] Glucose Test strip (U) [Mass/Vol] Negative Normal Trace, Negative [facility] Comment on above: Order Comment: Speci men Type: URINE SPECIMENOrdering Facility: [facility] Address: [address] [place] [address] Performed By: #### 2 4356-8 ####[facility]ATORYCLIA [id number] [address] Hemoglobin Ql (U) Trace Normal Negative, Trace [facility] Comment on above: Order Comment: Speci men Type: URINE SPECIMENOrdering Facility: [facility] Address: [address] [place] [address] Performed By: #### 2 4356-8 ####[facility]ATORYCLIA [id number] [address] Hyaline casts (Urine sed) [#/Area] 1-3 /LPF Abnormal 0 /LPF [facility] Comment on above: Order Comment: Speci men Type: URINE SPECIMENOrdering Facility: [facility] Address: [address] [place] [address] Performed By: #### 2 4356-8 ####[facility]ORATORYCLIA [id number] [address] Ketones Ql (U) Trace Normal Negative, Trace [facility] Comment on above: Order Comment: Speci men Type: URINE SPECIMENOrdering Facility: [facility] Address: [address] [place] [address] Performed By: #### 2 4356-8 ####[facility]ATORYCLIA [id number] [address] Leukocyte esterase Test strip Ql (U) 25 Jennifer/uL Normal Negative, 25 Jennifer/uL [facility] Comment on above: Order Comment: Speci men Type: URINE SPECIMENOrdering Facility: [facility] Address: [address] [place] [address] Performed By: #### 2 4356-8 ####[facility]ORATORYCLIA [id number] [address] Nitrite Ql (U) Negative Normal Negative [facility] Comment on above: Order Comment: Speci men Type: URINE SPECIMENOrdering Facility: [facility] Address: [address] [place] [address] Performed By: #### 2 4356-8 ####[facility]ORATORYCLIA [id number] [address] pH (U) 5.5 [pH] Normal 5.0-8.0 [facility] Comment on above: Order Comment: Speci men Type: URINE SPECIMENOrdering Facility: [facility] Address: [address] [place] [address] Performed By: #### 2 4356-8 ####[facility] LABORATORYCLIA [id number] [address] Protein (U) [Mass/Vol] Trace Normal Trace, Negative [facility] Comment on above: Order Comment: Speci men Type: URINE SPECIMENOrdering Facility: [facility] Address: [address] [place] [address] Performed By: #### 2 4356-8 ####[facility] LABORATORYCLIA [id number] [address] RBC LM.HPF (Urine sed) [#/Area] 6-10 /HPF Abnormal 0-3 /HPF [facility] Comment on above: Order Comment: Speci men Type: URINE SPECIMENOrdering Facility: [facility] Address: [address] [place] [address] Performed By: #### 2 4356-8 ####[facility] LABORATORYCLIA [id number] [address] Specific gravity (U) [Rel density] 1.024 Normal 1.005-1.030 [facility] Comment on above: Order Comment: Speci men Type: URINE SPECIMENOrdering Facility: [facility] Address: [address] [place] [address] Performed By: #### 2 4356-8 ####[facility] LABORATORYCLIA [id number] [address] [place] Urobilinogen Ql (U) Normal Normal Negative [facility] Comment on above: Order Comment: Speci men Type: URINE SPECIMENOrdering Facility: [facility] Address: [address] [place] [address] Performed By: #### 2 4356-8 ####[facility] LABORATORYCLIA [id number] [address] [place] [facility] WBC LM.HPF (Urine sed) [#/Area] 6-10 /HPF Abnormal 0-5 /HPF [facility] Comment on above: Order Comment: Speci men Type: URINE SPECIMENOrdering Facility: [facility] Address: [address] [place] [address] Performed By: #### 2 4356-8 ####[facility] LABORATORYCLIA [id number] [address] OF [facility] XR ABDOMEN 1V SUPINEon 12-18 XR ABDOMEN 1V SUPINE Normal [facility] XR CHEST 1V FRONTALon 2022 XR CHEST 1V FRONTAL Normal [facility] XR CHEST 1V FRONTAL Normal [facility] aPTT PPPon 12-18-2022 aPTT Coag (PPP) [Time] 37.9 s High 23.0-32.4 [facility] Comment on above: Order Comment: Speci men Type: BLOOD SPECIMENOrdering Facility: [facility] Address: [address] [place] [address] Performed By: #### 3 255-7, 21678-1, 91424-4, 11154-5 ####[facility] LABORATORYCLIA [id number] [place] [address] [place] vWF Cp Act/Nor PPP Chroon vWf cleaving protease actual/normal Chromogenic method (PPP) [Rel catalytic activity/Vol] >114 Normal >67 [facility] Comment on above: Order Comment: Speci men Type: BLOOD SPECIMENOrdering Facility: [facility] Address: [address] [address] Result Comment: This test was developed and its performance characteristics determined by [facility] Pathology and Laboratory Medicine [place] (RTPLMI). It has not been cleared or approved by the FDA. [facility] is regulated under CLIA as qualified to perform high-complexity testing. This test is used for clinical purposes. It should not be regarded as investigational or for research. Performed By: #### 5 3622-7 ####[facility] LABCLIA [id number] [place] [address] [place] Basophil percentageOrdered B y: Dr. Alonzo on 12-17-2022 Ammonia (P) [Moles/Vol] 41.0 umol/L 11-32 [facility] LDH [Catalytic activity/Vol] 1113 U/L 84-246 [facility] Comment on above: Slight Hemolysis, Re sult may be falsely increased. Direct bilirubinOrdered By: Dr. Alonzo on 12-17-2022 Bilirubin.direct [Mass/Vol] 0.97 mg/dL 0.00-0.30 [facility] Comment on above: Specimen is hemolyze d. The presence of hemoglobin can falsley depress direct bilirubin reslts. Collection of a new specimen is suggested if clinicaly indicated. Gram stain for investigation of transfusion reactionOrdered By: Dr. Pham on 12-17-2022 Microscopic observation Gram stain Nom (Unsp spec) [facility] Hemoglobin in reticulocytes (mass per reticulocyte)Ordered By: Dr. Alonzo on 12-17-2022 Hemoglobin (Reticulocytes) [Entitic mass] 36.5 pg 30-35 [facility] Laboratory - Chemistry and C hemistry - challengeOrdered By: Dr. Aldana on 12-17-2022 Free T4 [Mass/Vol] 1.24 ng/dL 0.76-1.46 [facility] No Panel InformationOrdered By: Dr. Alonzo on 12-17-2022 Miscellaneous Test See comment [facility] Comment on above: TEST RESULT LIMITSAD AMTS13 Activity [id number] Activity, 67.0 % >66.8Comment Severe deficiency of KLKJUW49 (less than 10% activity) is arelatively specific finding in patients with a clinical diagnosis of either hereditary or acquired thrombotic thrombocytopenic purpura (TTP). Normal to moderately reduced MRTZSK86 activity results do not exclude a diagnosis of TTP. Conditions that could have HPJOLJ48 activity greater than 10% include hemolytic uremic syndrome (HUS), atypical hemolytic uremic syndrome (aHUS), and other thrombotic microangiopathies associated with hematopoietic stem cell and solid organ transplantation, liver disease, DIC, sepsis, , or effects of certain medications (eg, clopidogrel, cyclosporine, mitomycin C, quinine). __ TESTING PERFORMED AT [facility]. ORIGINAL REPORT ON FILE IN LAB CONTAINS ADDITIONAL TEST SITE INFORMATION. Immature Platelet Fraction 27.4 % 1.0-7.9 [facility] Comment on above: Low PLT + Low IPF marroquin ggest a bone marrow production disorderLow PLT + high IPF suggests peripheral destruction(e.g.ITP, TTP, HIT, DIC, autoimmune) or bone marrow recoveryTrending of serial IPF measurements is recommended when evaluating for bone marrow responesValue above normal range indicates an increase in RBC cellular response from bone marrow. Immature Reticulocyte Fraction 13.30 % 3.00-15.90 [facility] Reticulocyte Count 2.23 % 0.5-1.5 [facility] D-Dimer Quantitative (PE/DVT) 9.79 FEU/ug/m 0.27-0.49 [facility] Comment on above: D-Dimer ELEVATED (>0 .49): Additional studies and clinicalassessments are indicated to conclude diagnosis of:Deep Vein Thrombosis (DVT) or Pulmonary Embolism (PE) Haptoglobin < 10 mg/dL 42-346 [facility] Comment on above: Performed at: [address] [id number] Director: Marco Antonio Sandhu PhD, Phone: [phone] No Panel InformationOrdered By: Dr. Aldana on 12-17-2022 Fibrinogen 147 mg/dl 203-444 [facility] Absolute lymphocyte countOrd ered By: Germaine Presley on 12-16-2022 Lymphocytes Auto (Unsp spec) [#/Vol] 1.71 10*3/uL 0.83-4.51 [facility] Assessment of wrist artery p atency prior to arterial punctureOrdered By: Dr. Pham on 12-16-2022 Arterial patency Wrist artery --pre arterial puncture Positive [facility] Base excessOrdered By: Dr. Estrella english on 12-16-2022 Base excess Calc (BldV) [Moles/Vol] 0 mmol/L -2-2 [facility] Base excess Calc (BldV) [Moles/Vol] 2 mmol/L -2-2 [facility] Basophil percentageOrdered B y: Dr. Pham on 12-16-2022 Lactate [Moles/Vol] 2.1 mmol/L 0.4-2.0 [facility] Comment on above: Critical Result(s) C alled at: 23:35:19 12/16/2022 by: Javier Lezama TO CHIQUITA KINGSTON RN (ICU) Results read back by same. Basophil percentage 21.1 mmol/L 22-26 [facility] Basophils/100 WBC (Bld) 99 % 95-99 [facility] Triglyceride [Mass/Vol] 117 mg/dL <199 [facility] Comment on above: The drugs N-Acetylcy steine and Metamizole may falsely depress this assay.Serum Triglycerides Reference Interval Normal <150 mg/dL Borderline high 150 - 199 mg/dL High 200 - 499 mg/dL Very High > or = 500 mg/dL Basophil percentage 26.4 mmol/L 22-26 [facility] Basophils/100 WBC (Bld) 97 % 95-99 [facility] Lactate [Moles/Vol] 8.4 mmol/L 0.4-2.0 [facility] Comment on above: Critical Result(s) C alled at: 18:01:22 12/16/2022 by: Su Silva to [facility]. Results read back by same. Basophil percentageOrdered B y: Germaine Presley on 12-16-2022 Basophil percentage 10-25 SEEN /hpf 0-5 [facility] Basophils/100 WBC (Bld) 0.4 % 0-1 [facility] Bilirubin [Mass/Vol] 3.20 mg/dL 0.20-1.00 [facility] Comment on above: For patients on eltr ombopag therapy, use of Dimension [place] TBIL is not recommended. Chloride [Moles/Vol] 93 mmol/L 98-107 [facility] Eosinophils/100 WBC (Bld) 4.2 % 0-5 [facility] Glucose [Mass/Vol] 154 mg/dL 74-106 [facility] Comment on above: Fasting Glucose resu lt greater than or equal to 126 mg/dL suggests DIABETES MELLITUS per A.D.A. criteria. Neutrophils (Bld) [#/Vol] 9.7 10*3/uL 2.0-7.7 [facility] Neutrophils/100 WBC (Bld) 71.7 % 47-70 [facility] Potassium [Moles/Vol] 3.7 mmol/L 3.5-5.1 [facility] Comment on above: Slight Hemolysis, Re sult may be falsely increased. Protein [Mass/Vol] 7.3 g/dL 6.4-8.2 [facility] Sodium [Moles/Vol] 138 mmol/L 136-145 [facility] WBC (Bld) [#/Vol] 13.5 10*3/uL 4.4-11.0 [facility] Bilirubin Test strip Ql (U)O rdered By: Germaine Presley on 12-16-2022 Bilirubin Ql (U) Negative Negative [facility] Blood erythrocytes count (nu mber/volume)Ordered By: Germaine Presley on 12-16-2022 RBC (Bld) [#/Vol] 5.36 10*6/uL 4.2-5.4 [facility] Blood hemoglobin measurement (mass/volume)Ordered By: Germaine Presley on 12-16-2022 Hemoglobin (Bld) [Mass/Vol] 17.8 g/dL 12.0-15.0 [facility] Blood lymphocytes/100 leukoc ytesOrdered By: Germaine Presley on 12-16-2022 Lymphocytes/100 WBC (Bld) 12.6 % 19-41 [facility] Blood manual differential co mment interpretation (narrative result)Ordered By: Germaine Presley on 12-16-2022 Manual differential comment Ifeanyi (Bld) [Interp] SCANNED [facility] Comment on above: THROMBOCYTOPENIA Blood monocytes/100 leukocyt esOrdered By: Germaine Presley on 12-16-2022 Monocytes/100 WBC (Bld) 10.4 % 0-10 [facility] Blood platelet mean volumeOr dered By: Germaine Presley on 12-16-2022 Platelet mean volume (Bld) [Entitic vol] TNP [facility] Comment on above: Test not performed CO2 (BldA) [Partial pressure ]Ordered By: Dr. Pham on 12-16-2022 CO2 (Bld) [Partial pressure] 21.6 mm[Hg] 35-45 [facility] CO2 (Bld) [Partial pressure] 38.2 mm[Hg] 35-45 [facility] Determination of erythrocyte mean corpuscular volume (MCV)Ordered By: Germaine Presley on 12-16-2022 MCV (RBC) [Entitic vol] 100.9 fL 81-99 [facility] Glucose Glucometer (BldC) [M ass/Vol]Ordered By: Dr. Han on 12-16-2022 Glucose [Mass/Vol] 147 mg/dL 74-106 [facility] Comment on above: MANAGEMENT OF PATIEN T CARE PER NURSING PROTOCOL Hematocrit Auto (Bld) [Volum e fraction]Ordered By: Germaine Presley on 12-16-2022 Hematocrit (Bld) [Volume fraction] 54.1 % 37-47 [facility] INR in Blood by Coagulation assayOrdered By: Dr. Pham on 12-16-2022 INR Coag (Bld) [Relative time] 1.1 {INR} [facility] Ketones Test strip Ql (U)Ord ered By: Germaine Prelsey on 12-16-2022 Ketones Ql (U) 5 mg/dl Negative [facility] Laboratory - Chemistry and C hemistry - challengeOrdered By: Dr. Pham on 12-16-2022 CK [Catalytic activity/Vol] 266 U/L [facility] Comment on above: Moderate Hemolysis, Result may be falsely increased. CK [Catalytic activity/Vol] 193 U/L [facility] Comment on above: Moderate Hemolysis, Result may be falsely increased. Laboratory - Chemistry and C hemistry - challengeOrdered By: Germaine Presley on 12-16-2022 ALP [Catalytic activity/Vol] 106 U/L 45-117 [facility] ALT [Catalytic activity/Vol] 71 U/L 13-56 [facility] CO2 [Moles/Vol] 27.0 mmol/L 21.0-32.0 [facility] Globulin (S) [Mass/Vol] 4.2 g/dL 2.2-4.2 [facility] Urea nitrogen/Creatinine [Mass ratio] 12.4 mg/mg 10-20 [facility] Laboratory - CoagulationOrde red By: Dr. Pham on 12-16-2022 aPTT Coag (Bld) [Time] 23.5 s 24.1-36.2 [facility] PT Coag (PPP) [Time] 14.1 s 11.7-14.9 [facility] Laboratory - Drug toxicology Ordered By: Germaine Presley on 12-16-2022 Amphetamines Ql (U) Negative <1000 ng/mL [facility] Benzodiazepines Ql (U) Positive < 200 ng/mL [facility] Cannabinoids Screen Ql (U) Negative < 50 ng/mL [facility] Cocaine Ql (U) Negative < 300 ng/mL [facility] Opiates Ql (U) Negative < 300 ng/mL [facility] Laboratory - Hematology and Cell countsOrdered By: Germaine Presley on 12-16-2022 Erythrocyte distribution width (RBC) [Entitic vol] 53.5 fL 35.1-43.9 [facility] Erythrocyte distribution width (RBC) [Ratio] 14.3 % 11.6-14.6 [facility] Immature granulocytes/100 WBC (Bld) 0.700 % 0.0-0.9 [facility] Comment on above: IG% - Immature Granu locytes (promyelocytes, myelocytes and metamyelocytes) > 1% indicates that a LEFT SHIFT is Present. MCH (RBC) [Entitic mass] 33.2 pg 27.0-32.0 [facility] Nucleated RBC/100 WBC (Bld) [Ratio] 0 % 0-5 [facility] MCHC Auto (RBC) [Mass/Vol]Or dered By: Germaine Presley on 12-16-2022 MCHC (RBC) [Mass/Vol] 32.9 g/dL 32-36 [facility] Mucus LM Ql (Urine sed)Order ed By: Germaine Presley on 12-16-2022 Mucus Ql (Urine sed) 0 SEEN /hpf [facility] Nitrite Test strip Ql (U)Ord ered By: Germaine Presley on 12-16-2022 Nitrite Ql (U) Negative Negative [facility] No Panel InformationOrdered By: Dr. Pham on 12-16-2022 Bedside Blood Gas PEEP 5 [facility] Bld Gas Crit Called To/Read Back By Yes [facility] Blood Gas Oxygen Percent 30 [facility] Blood Gas Respiration Rate 14 [facility] Blood Gas Sample Site R Radial [facility] Blood Gas Specimen Type ART [facility] Blood Gas Tidal Volume 450 [facility] Blood Gas Total CO2 22 mmol/L [facility] Blood Gas Vent Mode AC [facility] Oxygen Delivery Device ET Tube [facility] Parathyroid Hormone (Intact) 15.4 pg/mL 18.4-80.1 [facility] Vitamin D 25-Hydroxy 32.7 ng/mL [facility] Comment on above: Vitamin D 25(OH) Sta tus Range Deficiency <20 ng/mL (50nmol/L) Insufficiency 20 - 30 ng/mL (50 - 75 nmol/L) Sufficiency 30 - 100 ng/mL (75 - 250 nmol/L) Toxicity >100 ng/mL (>250 nmol/L) Blood Gas Liter Flow 2.0 /min [facility] Blood Gas Sample Site R Radial [facility] Blood Gas Specimen Type ART [facility] Blood Gas Total CO2 28 mmol/L [facility] No Panel InformationOrdered By: Germaine Presley on 12-16-2022 MDMA (Ecstasy) Screen Positive < 500 ng/mL [facility] Urine Barbiturates Screen Negative < 200 ng/mL [facility] Urine Drug Screen Comment [facility] Comment on above: CONFIRMATORY TESTING FOR ALL POSITIVE URINE DRUG SCREENRESULTS WILL ONLY BE SENT OUT UPON PHYSICIAN ORDER. VISTA Urine Drug Screen methods provide only preliminaryanalytical test results. A more specific alternate chemicalmethod must be used in order to obtain a confirmedanalytical result. Gas chromatography/mass spectrometery(GC/MS) is the preferred confirmatory method. Clinicalconsideration and professional judgement should be appliedto any drug of abuse test result, particularly whenpreliminary positive results are used. URINE TCA TESTING MUST BE ORDERED SEPARATELY. USE TESTMNEMONIC: [facility] Urine Methadone Screen Negative < 300 ng/mL [facility] Thyroid Stimulating Hormone (TSH) 19.60 uIU/mL 0.358-3.74 [facility] Estimated Creatinine Clearance Calc 23.98 ml/min [facility] Estimated GFR (MDRD) Amer 36 mL/min >60 [facility] Comment on above: GFR Calc Estimated GFR (MDRD) Non-Af Amer 30 mL/min >60 [facility] Comment on above: Non- GFR Calc Ethyl Alcohol Level < 3.0 mg/dL [facility] Comment on above: The serum:whole bloo d ethanol ratio is approximately 1.14and varies slightly with hematocrit. Medical Alcohol reference interval and critical value innon-tolerant individuals; 50 - 100 Impairment 100 Intoxication 100 - 250 Severe Poisoning 250 - 400 Deep/possible fatal coma Oxygen (BldA) [Partial press ure]Ordered By: Dr. Pham on 12-16-2022 Oxygen (Bld) [Partial pressure] 91 mmHG 75-100 [facility] Oxygen (Bld) [Partial pressure] 90 mmHG 75-100 [facility] Platelets bldOrdered By: Mary Ann Presley on 12-16-2022 Platelets (Bld) [#/Vol] 31 10*3/uL 150-450 [facility] Comment on above: CRITICAL VALUE VERIF IED. CALLED TO JEFF12/16/22 1654 Peggy Harshmadhavi.RESULTS READ BACK BY SAME. Protein Test strip Ql (U)Ord ered By: Germaine Presley on 12-16-2022 Protein Ql (U) 100 mg/dl Negative [facility] Review by pathologistOrdered By: Germaine Presley on 12-16-2022 Pathologist review Ifeanyi (Unsp spec) [Interp] May foll [facility] Serum or plasma albumin cony urement (mass/volume)Ordered By: Germaine Presley on 12-16-2022 Albumin [Mass/Vol] 3.1 g/dL 3.2-5.0 [facility] Serum or plasma albumin/glob ulin mass ratioOrdered By: Germaine Presley on 12-16-2022 Albumin/Globulin [Mass ratio] 0.7 {ratio} 0.9-2.4 [facility] Serum or plasma calcium cony urement (mass/volume)Ordered By: Germaine Presley on 12-16-2022 Calcium [Mass/Vol] 14.9 mg/dL 8.5-10.1 [facility] Comment on above: Critical Result(s) C alled at: 16:53:23 12/16/2022 by: Su Silva to [facility]. Results read back by same. Serum or plasma creatinine m easurement (mass/volume)Ordered By: Germaine Presley on 12-16-2022 Creatinine [Mass/Vol] 1.78 mg/dL 0.55-1.02 [facility] Comment on above: The validity of the calculated GFR & GFRAA in patients over 70 years has not been determined. Clinical correlation is essential. Serum or plasma urea nitroge n measurement (mass/volume)Ordered By: Germaine Presley on 12-16-2022 Urea nitrogen [Mass/Vol] 22 mg/dL 7-18 [facility] Squamous epithelial cells de tection in urine sediment by light microscopyOrdered By: Germaine Presley on 12-16-2022 Epithelial cells.squamous LM Ql (Urine sed) 0-5 SEEN /hpf 5-10 [facility] Thin prep Papanicolaou smear with manual screeningOrdered By: Germaine Presley on 12-16-2022 Thin prep Papanicolaou smear with manual screening 427 U/L 15-37 [facility] Comment on above: Slight Hemolysis, Re sult may be falsely increased. Thin prep Papanicolaou smear with manual screening 18 5-15 [facility] Urine blood detectionOrdered By: Germaine Presley on 12-16-2022 RBC Ql (U) 250 /ul Negative [facility] RBC Ql (U) 0-5 SEEN /hpf 0-5 [facility] Urine clarityOrdered By: Mary Ann Presley on 12-16-2022 Clarity (U) Cloudy Clear [facility] Urine color determinationOrd ered By: Germaine Presley on 12-16-2022 Color (U) Lilly Yellow [facility] Urine glucose detectionOrder ed By: Germaine Presley on 12-16-2022 Glucose Ql (U) Normal mg/dl Normal [facility] Urine leukocyte esterase det ection by dipstickOrdered By: Germaine Presley on 12-16-2022 Leukocyte esterase Test strip Ql (U) 25 /ul Negative [facility] Urine pHOrdered By: Germaine tatum on 12-16-2022 pH (U) 6.5 [pH] 5.0 - 8.0 [facility] Urine phencyclidine (PCP) de tectionOrdered By: Germaine Presley on 12-16-2022 Phencyclidine Ql (U) Negative < 25 ng/mL [facility] Urine sediment bacteria coun t by microscopy (number/high power field)Ordered By: Germaine Presley on 12-16-2022 Bacteria LM.HPF (Urine sed) [#/Area] 4 /[HPF] None Seen [facility] Urine specific gravity measu rementOrdered By: Germaine Presley on 12-16-2022 Specific gravity (U) [Rel density] 1.015 1.002-1.030 [facility] Urobilinogen Auto test strip Ql (U)Ordered By: Germaine Presley on 12-16-2022 Urobilinogen Ql (U) 1 mg/dl Normal [facility] pH measurementOrdered By: Dr Timothy Pham on 12-16-2022 pH (Unsp spec) 7.60 [pH] 7.35-7.45 [facility] pH (Unsp spec) 7.45 [pH] 7.35-7.45 [facility] CASE MANAGEMon 09-27-2022 CASE MANAGEM Normal [facility] CASE MANAGEM Normal [facility] CNDSon 09-27-2022 CNDS Normal [facility] CONSULTon 09-27-2022 CONSULT Normal [facility] Ammonia Plas-sCncon 09-26-20 22 Ammonia (P) [Moles/Vol] 20 umol/L Normal 11-51 [facility] Comment on above: Order Comment: Speci men Type: BLOOD SPECIMENOrdering Facility: [facility] Address: [address] [place] [address] Performed By: #### 1 6362-6 ####[facility] LABORATORYCLIA [id number] [place] [address] [place] Basic metabolic 2000 panelon 09-26-2022 Anion gap [Moles/Vol] 10 mmol/L Normal 9-18 [facility] Comment on above: Order Comment: Speci men Type: BLOOD SPECIMENOrdering Facility: [facility] Address: [address] [place] [address] Performed By: #### 2 4321-2 ####[facility] LABORATORYCLIA [id number] [place] [address] [place] Calcium [Mass/Vol] 9.1 mg/dL Normal 8.5-10.2 [facility] Comment on above: Order Comment: Speci men Type: BLOOD SPECIMENOrdering Facility: [facility] Address: [address] [address] Performed By: #### 2 4321-2 ####[facility] LABORATORYCLIA [id number] [place] [address] [place] Chloride [Moles/Vol] 101 mmol/L Normal 97-105 [facility] Comment on above: Order Comment: Speci men Type: BLOOD SPECIMENOrdering Facility: [facility] Address: [address] [place] [address] Performed By: #### 2 4321-2 ####[facility] LABORATORYCLIA [id number] [address] CO2 [Moles/Vol] 21 mmol/L Low 22-30 [facility] Comment on above: Order Comment: Speci men Type: BLOOD SPECIMENOrdering Facility: [facility] Address: [address] [place] [address] Performed By: #### 2 4321-2 ####[facility] LAB[facility]ATORYCLIA [id number] [address] Creatinine [Mass/Vol] 0.44 mg/dL Low 0.58-0.96 [facility] Comment on above: Order Comment: Speci men Type: BLOOD SPECIMENOrdering Facility: [facility] Address: [address] [place] [address] Performed By: #### 2 4321-2 ####[facility] [id number] [address] ESTIMATED GLOMERULAR FILTRATION RATE 104 mL/min/1.73m??? Normal >=60 [facility] Comment on above: Order Comment: Speci men Type: BLOOD SPECIMENOrdering Facility: [facility] Address: [address] [place] [address] Result Comment: Mariely mated Glomerular Filtration Rate (eGFR) is calculated using the 2020 CKD-EPI creatinine equation. This equation utilizes serum creatinine, sex, and age as parameters. The creatinine assay has traceable calibration to isotope dilution-mass spectrometry. Refer to KDIGO guidelines for clinical interpretation. In patients with unstable renal function, e.g. those with acute kidney injury, the eGFR may not accurately reflect actual GFR. Performed By: #### 2 4321-2 ####[facility] LAB[facility]ATORYCLIA [id number] [address] Glucose [Mass/Vol] 98 mg/dL Normal 74-99 [facility] Comment on above: Order Comment: Speci men Type: BLOOD SPECIMENOrdering Facility: [facility] Address: [address] [place] [address] Result Comment: The [place] [employer] (ADA) provides guidance for cutoff values for fasting glucose and random glucose. The ADA defines fasting as no caloric intake for at least 8 hours. Fasting plasma glucose results between 100 to 125 mg/dL indicate increased risk for diabetes (prediabetes).Fasting plasma glucose results greater than or equal to 126 mg/dL meet the criteria for diagnosis of diabetes. In the absence of unequivocal hyperglycemia, results should be confirmed by repeat testing. In a patient with classic symptoms of hyperglycemia or hyperglycemic crisis, random plasma glucose results greater than or equal to 200 mg/dL meet the criteria for diagnosis of diabetes.Reference: Standards of Medical Care in Diabetes 2016, [place] [employer]. Diabetes Care. 2016.39(Suppl 1). Performed By: #### 2 4321-2 ####[facility] LABORATORYCLIA [id number] [place] [address] [place] Potassium [Moles/Vol] Normal [facility] Comment on above: Order Comment: Cary lujan Type: BLOOD SPECIMENOrdering Facility: [facility] Address: [address] [place] [address] Result Comment: Unab le to assay due to interference from hemolysis. Suggest reorder as clinically indicated. Performed By: #### 2 4321-2 ####[facility] HOSPITALCLIA [id number] [place] [address] [place] Sodium [Moles/Vol] 132 mmol/L Low 136-144 [facility] Comment on above: Order Comment: [facility] Type: BLOOD SPECIMENOrdering Facility: [facility] Address: [address] [address] Performed By: #### 2 4321-2 ####[facility] LABORATORYCLIA [id number] [place] [address] [place] Urea nitrogen [Mass/Vol] 12 mg/dL Normal 7-21 [facility] Comment on above: Order Comment: Cary lujan Type: BLOOD SPECIMENOrdering Facility: [facility] Address: [address] [address] Performed By: #### 2 4321-2 ####[facility] LABORATORYCLIA [id number] [address] OF [facility] CASE MANAGEMon 09-26-2022 CASE MANAGEM Normal [facility] CASE MANAGEM Normal [facility] CBC panel Auto (Bld)on 09-26 Erythrocyte distribution width (RBC) [Ratio] 15.2 % High 11.5-15.0 [facility] Comment on above: Order Comment: Speci men Type: BLOOD SPECIMENOrdering Facility: [facility] Address: [address] [place] [address] Performed By: #### 5 8410-2 ####[facility] LABORATORYCLIA [id number] [address] Hematocrit (Bld) [Volume fraction] 40.2 % Normal 36.0-46.0 [facility] Comment on above: Order Comment: Speci men Type: BLOOD SPECIMENOrdering Facility: [facility] Address: [address] [place] [address] Performed By: #### 5 8410-2 ####[facility] LABORATORYCLIA [id number] [address] STATES OF [facility] Hemoglobin (Bld) [Mass/Vol] 13.6 g/dL Normal 11.5-15.5 [facility] Comment on above: Order Comment: Speci men Type: BLOOD SPECIMENOrdering Facility: [facility] Address: [address] [place] [address] Performed By: #### 5 8410-2 ####[facility] LABORATORYCLIA [id number] [address] [place] MCH (RBC) [Entitic mass] 34.6 pg High 26.0-34.0 [facility] Comment on above: Order Comment: Speci men Type: BLOOD SPECIMENOrdering Facility: [facility] Address: [address] [place] [address] Performed By: #### 5 8410-2 ####[facility] LABORATORYCLIA [id number] [address] STATES [facility] MCHC (RBC) [Mass/Vol] 33.8 g/dL Normal 30.5-36.0 [facility] Comment on above: Order Comment: Speci men Type: BLOOD SPECIMENOrdering Facility: [facility] Address: [address] [place] [address] Performed By: #### 5 8410-2 ####[facility] LABORATORYCLIA [id number] [address] STATES OF [facility] MCV (RBC) [Entitic vol] 102.3 fL High 80.0-100.0 [facility] Comment on above: Order Comment: Speci men Type: BLOOD SPECIMENOrdering Facility: [facility] Address: [address] [place] [address] Performed By: #### 5 8410-2 ####[facility]ATORYCLIA [id number] [address] [place] Nucleated RBC (Bld) [#/Vol] 10*3/uL Normal <0.01 [facility] Comment on above: Order Comment: Speci men Type: BLOOD SPECIMENOrdering Facility: [facility] Address: [address] [place] [address] Performed By: #### 5 8410-2 ####[facility] LABORATORYCLIA [id number] [address] OF [facility] Platelet mean volume (Bld) [Entitic vol] 10.3 fL Normal 9.0-12.7 [facility] Comment on above: Order Comment: Speci men Type: BLOOD SPECIMENOrdering Facility: [facility] Address: [address] [address] Performed By: #### 5 8410-2 ####[facility]ORATORYCLIA [id number] [address] [place] Platelets (Bld) [#/Vol] 264 10*3/uL Normal 150-400 [facility] Comment on above: Order Comment: Speci men Type: BLOOD SPECIMENOrdering Facility: [facility] Address: [address] [place] [address] Performed By: #### 5 8410-2 ####[facility]ATORYCLIA [id number] [address] [place] RBC (Bld) [#/Vol] 3.93 10*6/uL Normal 3.90-5.20 [facility] Comment on above: Order Comment: Speci men Type: BLOOD SPECIMENOrdering Facility: [facility] Address: [address] [place] [address] Performed By: #### 5 8410-2 ####[facility]ATORYCLIA [id number] [address] OF [facility] WBC (Bld) [#/Vol] 7.82 10*3/uL Normal 3.70-11.00 [facility] Comment on above: Order Comment: Speci men Type: BLOOD SPECIMENOrdering Facility: [facility] Address: [address] [place] [address] Performed By: #### 5 8410-2 ####[facility]ATORYCLIA [id number] [address] OF [facility] Basic metabolic 2000 panelon 09-25-2022 Anion gap [Moles/Vol] 11 mmol/L Normal 9-18 [facility] Comment on above: Order Comment: Speci men Type: BLOOD SPECIMENOrdering Facility: [facility] Address: [address] [place] [address] Performed By: #### 2 4321-2 ####[facility]ATORYCLIA [id number] [address] [place] Calcium [Mass/Vol] 8.4 mg/dL Low 8.5-10.2 [facility] Comment on above: Order Comment: Speci men Type: BLOOD SPECIMENOrdering Facility: [facility] Address: [address] [place] [address] Performed By: #### 2 4321-2 ####[facility]ORATORYCLIA [id number] [address] [place] Chloride [Moles/Vol] 107 mmol/L High 97-105 [facility] Comment on above: Order Comment: Speci men Type: BLOOD SPECIMENOrdering Facility: [facility] Address: [address] [place] [address] Performed By: #### 2 4321-2 ####[facility]ORATORYCLIA [id number] [address] [place] CO2 [Moles/Vol] 21 mmol/L Low 22-30 [facility] Comment on above: Order Comment: Speci men Type: BLOOD SPECIMENOrdering Facility: [facility] Address: [address] [place] [address] Performed By: #### 2 4321-2 ####[facility] LABORATORYCLIA [id number] [address] OF [facility] Creatinine [Mass/Vol] 0.46 mg/dL Low 0.58-0.96 [facility] Comment on above: Order Comment: Speci men Type: BLOOD SPECIMENOrdering Facility: [facility] Address: [address] [place] [address] Performed By: #### 2 4321-2 ####[facility] LABORATORYCLIA [id number] [address] ESTIMATED GLOMERULAR FILTRATION RATE 102 mL/min/1.73m??? Normal >=60 [facility] Comment on above: Order Comment: Speci men Type: BLOOD SPECIMENOrdering Facility: [facility] Address: [address] [place] [address] Result Comment: Mariely mated Glomerular Filtration Rate (eGFR) is calculated using the 2020 CKD-EPI creatinine equation. This equation utilizes serum creatinine, sex, and age as parameters. The creatinine assay has traceable calibration to isotope dilution-mass spectrometry. Refer to KDIGO guidelines for clinical interpretation. In patients with unstable renal function, e.g. those with acute kidney injury, the eGFR may not accurately reflect actual GFR. Performed By: #### 2 4321-2 ####[facility]ORATORYCLIA [id number] [address] [place] Glucose [Mass/Vol] 92 mg/dL Normal 74-99 [facility] Comment on above: Order Comment: Speci men Type: BLOOD SPECIMENOrdering Facility: [facility] Address: [address] [place] [address] Result Comment: The [place] [employer] (ADA) provides guidance for cutoff values for fasting glucose and random glucose. The ADA defines fasting as no caloric intake for at least 8 hours. Fasting plasma glucose results between 100 to 125 mg/dL indicate increased risk for diabetes (prediabetes).Fasting plasma glucose results greater than or equal to 126 mg/dL meet the criteria for diagnosis of diabetes. In the absence of unequivocal hyperglycemia, results should be confirmed by repeat testing. In a patient with classic symptoms of hyperglycemia or hyperglycemic crisis, random plasma glucose results greater than or equal to 200 mg/dL meet the criteria for diagnosis of diabetes.Reference: Standards of Medical Care in Diabetes 2016, [place] [employer]. Diabetes Care. 2016.39(Suppl 1). Performed By: #### 2 4321-2 ####[facility] LABORATORYCLIA [id number] [place] [address] [place] Potassium [Moles/Vol] 3.9 mmol/L Normal 3.7-5.1 [facility] Comment on above: Order Comment: Speci men Type: BLOOD SPECIMENOrdering Facility: [facility] Address: [address] [place] [address] Performed By: #### 2 1-2 ####[facility]ORATORYCLIA [id number] [place] [address] [place] Sodium [Moles/Vol] 139 mmol/L Normal 136-144 [facility] Comment on above: Order Comment: Speci men Type: BLOOD SPECIMENOrdering Facility: [facility] Address: [address] [address] Performed By: #### 2 4321-2 ####[facility]ATORYCLIA [id number] [place] [address] [place] Urea nitrogen [Mass/Vol] 9 mg/dL Normal 7-21 [facility] Comment on above: Order Comment: Speci men Type: BLOOD SPECIMENOrdering Facility: [facility] Address: [address] [address] Performed By: #### 2 4321-2 ####[facility]ORATORYCLIA [id number] [address] [place] CASE MANAGEMon 09-25-2022 CASE MANAGEM Normal [facility] CBC panel Auto (Bld)on 09-25 Erythrocyte distribution width (RBC) [Ratio] 15.1 % High 11.5-15.0 [facility] Comment on above: Order Comment: Speci men Type: BLOOD SPECIMENOrdering Facility: [facility] Address: [address] [place] [address] Performed By: #### 5 8410-2 ####[facility]ATORYCLIA [id number] [address] Hematocrit (Bld) [Volume fraction] 37.6 % Normal 36.0-46.0 [facility] Comment on above: Order Comment: Speci men Type: BLOOD SPECIMENOrdering Facility: [facility] Address: [address] [place] [address] Performed By: #### 5 8410-2 ####[facility]ATORYCLIA [id number] [address] Hemoglobin (Bld) [Mass/Vol] 12.7 g/dL Normal 11.5-15.5 [facility] Comment on above: Order Comment: Speci men Type: BLOOD SPECIMENOrdering Facility: [facility] Address: [address] [place] [address] Performed By: #### 5 8410-2 ####[facility]ORATORYCLIA [id number] [address] STATES [facility] MCH (RBC) [Entitic mass] 34.3 pg High 26.0-34.0 [facility] Comment on above: Order Comment: Speci men Type: BLOOD SPECIMENOrdering Facility: [facility] Address: [address] [place] [address] Performed By: #### 5 8410-2 ####[facility]ORATORYCLIA [id number] [place] [address] [place] MCHC (RBC) [Mass/Vol] 33.8 g/dL Normal 30.5-36.0 [facility] Comment on above: Order Comment: Speci men Type: BLOOD SPECIMENOrdering Facility: [facility] Address: [address] [place] [address] Performed By: #### 5 8410-2 ####[facility]ATORYCLIA [id number] [address] [place] MCV (RBC) [Entitic vol] 101.6 fL High 80.0-100.0 [facility] Comment on above: Order Comment: Speci men Type: BLOOD SPECIMENOrdering Facility: [facility] Address: [address] [place] [address] Performed By: #### 5 8410-2 ####[facility]ATORYCLIA [id number] [address] STATES OF [facility] Nucleated RBC (Bld) [#/Vol] 10*3/uL Normal <0.01 [facility] Comment on above: Order Comment: Speci men Type: BLOOD SPECIMENOrdering Facility: [facility] Address: [address] [place] [address] Performed By: #### 5 8410-2 ####[facility]ATORYCLIA [id number] [address] [place] Platelet mean volume (Bld) [Entitic vol] 10.1 fL Normal 9.0-12.7 [facility] Comment on above: Order Comment: Speci men Type: BLOOD SPECIMENOrdering Facility: [facility] Address: [address] [address] Performed By: #### 5 8410-2 ####[facility]ATORYCLIA [id number] [address] [place] Platelets (Bld) [#/Vol] 284 10*3/uL Normal 150-400 [facility] Comment on above: Order Comment: Speci men Type: BLOOD SPECIMENOrdering Facility: [facility] Address: [address] [place] [address] Performed By: #### 5 8410-2 ####[facility]ATORYCLIA [id number] [address] STATES OF [facility] RBC (Bld) [#/Vol] 3.70 10*6/uL Low 3.90-5.20 [facility] Comment on above: Order Comment: Speci men Type: BLOOD SPECIMENOrdering Facility: [facility] Address: [address] [place] [address] Performed By: #### 5 8410-2 ####[facility]ATORYCLIA [id number] [address] OF [facility] WBC (Bld) [#/Vol] 6.62 10*3/uL Normal 3.70-11.00 [facility] Comment on above: Order Comment: Speci men Type: BLOOD SPECIMENOrdering Facility: [facility] Address: [address] [place] [address] Performed By: #### 5 8410-2 ####[facility]ATORYCLIA [id number] [address] OF [facility] THERAPY NTon 09-25-2022 THERAPY NT Normal [facility] THERAPY NT Normal [facility] THERAPY NT Normal [facility] Basic metabolic 2000 panelon 09-24-2022 Anion gap [Moles/Vol] 10 mmol/L Normal 9-18 [facility] Comment on above: Order Comment: Speci men Type: BLOOD SPECIMENOrdering Facility: [facility] Address: [address] [place] [address] Performed By: #### 2 4321-2 ####[facility]ATORYCLIA [id number] [address] STATES OF [facility] Calcium [Mass/Vol] 9.1 mg/dL Normal 8.5-10.2 [facility] Comment on above: Order Comment: Speci men Type: BLOOD SPECIMENOrdering Facility: [facility] Address: [address] [place] [address] Performed By: #### 2 4321-2 ####[facility]ATORYCLIA [id number] [address] STATES OF [facility] Chloride [Moles/Vol] 100 mmol/L Normal 97-105 [facility] Comment on above: Order Comment: Speci men Type: BLOOD SPECIMENOrdering Facility: [facility] Address: [address] [place] [address] Performed By: #### 2 4321-2 ####[facility]ORATORYCLIA [id number] [address] [place] CO2 [Moles/Vol] 23 mmol/L Normal 22-30 [facility] Comment on above: Order Comment: Speci men Type: BLOOD SPECIMENOrdering Facility: [facility] Address: [address] [place] [address] Performed By: #### 2 4321-2 ####[facility]CL[facility] [id number] [address] OF [facility] Creatinine [Mass/Vol] 0.56 mg/dL Low 0.58-0.96 [facility] Comment on above: Order Comment: Speci men Type: BLOOD SPECIMENOrdering Facility: [facility] Address: [address] [place] [address] Performed By: #### 2 4321-2 ####[facility]ATORYCLIA [id number] [address] ESTIMATED GLOMERULAR FILTRATION RATE 98 mL/min/1.73m??? Normal >=60 [facility] Comment on above: Order Comment: Speci men Type: BLOOD SPECIMENOrdering Facility: [facility] Address: [address] [place] [address] Result Comment: Mariely mated Glomerular Filtration Rate (eGFR) is calculated using the 2020 CKD-EPI creatinine equation. This equation utilizes serum creatinine, sex, and age as parameters. The creatinine assay has traceable calibration to isotope dilution-mass spectrometry. Refer to KDIGO guidelines for clinical interpretation. In patients with unstable renal function, e.g. those with acute kidney injury, the eGFR may not accurately reflect actual GFR. Performed By: #### 2 4321-2 ####[facility]ATORYCLIA [id number] [place] [address] [place] Glucose [Mass/Vol] 90 mg/dL Normal 74-99 [facility] Comment on above: Order Comment: Cary lujan Type: BLOOD SPECIMENOrdering Facility: [facility] Address: [address] [place] [address] Result Comment: The [place] Diabetes [employer] (ADA) provides guidance for cutoff values for fasting glucose and random glucose. The ADA defines fasting as no caloric intake for at least 8 hours. Fasting plasma glucose results between 100 to 125 mg/dL indicate increased risk for diabetes (prediabetes).Fasting plasma glucose results greater than or equal to 126 mg/dL meet the criteria for diagnosis of diabetes. In the absence of unequivocal hyperglycemia, results should be confirmed by repeat testing. In a patient with classic symptoms of hyperglycemia or hyperglycemic crisis, random plasma glucose results greater than or equal to 200 mg/dL meet the criteria for diagnosis of diabetes.Reference: Standards of Medical Care in Diabetes 2016, [place] [employer]. Diabetes Care. 2016.39(Suppl 1). Performed By: #### 2 4321-2 ####[facility]ATORYCLIA [id number] [place] [address] [place] Potassium [Moles/Vol] 3.5 mmol/L Low 3.7-5.1 [facility] Comment on above: Order Comment: Cary lujan Type: BLOOD SPECIMENOrdering Facility: [facility] Address: [address] [place] [address] Performed By: #### 2 4321-2 ####[facility]ATORYCLIA [id number] [place] [address] [place] Sodium [Moles/Vol] 133 mmol/L Low 136-144 [facility] Comment on above: Order Comment: Cary lujan Type: BLOOD SPECIMENOrdering Facility: [facility] Address: [address] [place] [address] Performed By: #### 2 4321-2 ####[facility]ATORYCLIA [id number] [place] [address] [place] Urea nitrogen [Mass/Vol] 13 mg/dL Normal 7-21 [facility] Comment on above: Order Comment: Speci men Type: BLOOD SPECIMENOrdering Facility: [facility] Address: [address] [place] [address] Performed By: #### 2 4321-2 ####[facility]ATORYCLIA [id number] [address] [place] CASE MANAGEMon 09-24-2022 CASE MANAGEM Normal [facility] CASE MANAGEM Normal [facility] CBC panel Auto (Bld)on 09-24 Erythrocyte distribution width (RBC) [Ratio] 15.2 % High 11.5-15.0 [facility] Comment on above: Order Comment: Speci men Type: BLOOD SPECIMENOrdering Facility: [facility] Address: [address] [place] [address] Performed By: #### 5 8410-2 ####[facility]ATORYCLIA [id number] [address] [place] Hematocrit (Bld) [Volume fraction] 40.8 % Normal 36.0-46.0 [facility] Comment on above: Order Comment: Speci men Type: BLOOD SPECIMENOrdering Facility: [facility] Address: [address] [place] [address] Performed By: #### 5 8410-2 ####[facility]ATORYCLIA [id number] [address] [place] Hemoglobin (Bld) [Mass/Vol] 13.8 g/dL Normal 11.5-15.5 [facility] Comment on above: Order Comment: Speci men Type: BLOOD SPECIMENOrdering Facility: [facility] Address: [address] [place] [address] Performed By: #### 5 8410-2 ####[facility]ATORYCLIA [id number] [address] [place] MCH (RBC) [Entitic mass] 34.5 pg High 26.0-34.0 [facility] Comment on above: Order Comment: Speci men Type: BLOOD SPECIMENOrdering Facility: [facility] Address: [address] [place] [address] Performed By: #### 5 8410-2 ####[facility]ATORYCLIA [id number] [address] MCHC (RBC) [Mass/Vol] 33.8 g/dL Normal 30.5-36.0 [facility] Comment on above: Order Comment: Speci men Type: BLOOD SPECIMENOrdering Facility: [facility] Address: [address] [place] [address] Performed By: #### 5 8410-2 ####[facility]ATORYCLIA [id number] [address] MCV (RBC) [Entitic vol] 102.0 fL High 80.0-100.0 [facility] Comment on above: Order Comment: Speci men Type: BLOOD SPECIMENOrdering Facility: [facility] Address: [address] [place] [address] Performed By: #### 5 8410-2 ####[facility]ATORYCLIA [id number] [address] Nucleated RBC (Bld) [#/Vol] 10*3/uL Normal <0.01 [facility] Comment on above: Order Comment: Speci men Type: BLOOD SPECIMENOrdering Facility: [facility] Address: [address] [place] [address] Performed By: #### 5 8410-2 ####[facility]ATORYCLIA [id number] [address] Platelet mean volume (Bld) [Entitic vol] 10.0 fL Normal 9.0-12.7 [facility] Comment on above: Order Comment: Speci men Type: BLOOD SPECIMENOrdering Facility: [facility] Address: [address] [place] [address] Performed By: #### 5 8410-2 ####[facility]ORATORYCLIA [id number] [address] Platelets (Bld) [#/Vol] 262 10*3/uL Normal 150-400 [facility] Comment on above: Order Comment: Speci men Type: BLOOD SPECIMENOrdering Facility: [facility] Address: [address] [place] [address] Performed By: #### 5 8410-2 ####[facility]ORATORYCLIA [id number] [place] [address] [place] RBC (Bld) [#/Vol] 4.00 10*6/uL Normal 3.90-5.20 [facility] Comment on above: Order Comment: Speci men Type: BLOOD SPECIMENOrdering Facility: [facility] Address: [address] [place] [address] Performed By: #### 5 8410-2 ####[facility]ATORYCLIA [id number] [address] [place] WBC (Bld) [#/Vol] 6.62 10*3/uL Normal 3.70-11.00 [facility] Comment on above: Order Comment: Speci men Type: BLOOD SPECIMENOrdering Facility: [facility] Address: [address] [place] [address] Performed By: #### 5 8410-2 ####[facility] LABORATORYCLIA [id number] [address] [place] CONSULTon 09-24-2022 CONSULT Normal [facility] NURSING PROGon 09-24-2022 NURSING PROG Normal [facility] NURSING PROG Normal [facility] NUTRITIONon 09-24-2022 NUTRITION Normal [facility] NURSING PROGon 09-22-2022 NURSING PROG Normal [facility] Basic metabolic 2000 panelon 09-21-2022 Anion gap [Moles/Vol] 9 mmol/L Normal 9-18 [facility] Comment on above: Order Comment: Speci men Type: BLOOD SPECIMENOrdering Facility: [facility] Address: [address] [place] [address] Performed By: #### 2 4321-2 ####[facility]ATORYCLIA [id number] [address] [place] Calcium [Mass/Vol] 9.5 mg/dL Normal 8.5-10.2 [facility] Comment on above: Order Comment: Speci men Type: BLOOD SPECIMENOrdering Facility: [facility] Address: [address] [place] [address] Performed By: #### 2 4321-2 ####[facility]ATORYCLIA [id number] [place] [address] [place] Chloride [Moles/Vol] 100 mmol/L Normal 97-105 [facility] [facility] Comment on above: Order Comment: Speci men Type: BLOOD SPECIMENOrdering Facility: [facility] Address: [address] [place] [address] Performed By: #### 2 4321-2 ####[facility] LABORATORYCLIA [id number] [address] [place] CO2 [Moles/Vol] 25 mmol/L Normal 22-30 [facility] Comment on above: Order Comment: Speci men Type: BLOOD SPECIMENOrdering Facility: [facility] Address: [address] [place] [address] Performed By: #### 2 4321-2 ####[facility] LABORATORYCLIA [id number] [address] [place] Creatinine [Mass/Vol] 0.56 mg/dL Low 0.58-0.96 [facility] Comment on above: Order Comment: Speci men Type: BLOOD SPECIMENOrdering Facility: [facility] Address: [address] [place] [address] Performed By: #### 2 4321-2 ####[facility] LABORATORYCLIA [id number] [address] [place] ESTIMATED GLOMERULAR FILTRATION RATE 98 mL/min/1.73m??? Normal >=60 [facility] Comment on above: Order Comment: Speci men Type: BLOOD SPECIMENOrdering Facility: [facility] Address: [address] [place] [address] Result Comment: Mariely mated Glomerular Filtration Rate (eGFR) is calculated using the 2020 CKD-EPI creatinine equation. This equation utilizes serum creatinine, sex, and age as parameters. The creatinine assay has traceable calibration to isotope dilution-mass spectrometry. Refer to KDIGO guidelines for clinical interpretation. In patients with unstable renal function, e.g. those with acute kidney injury, the eGFR may not accurately reflect actual GFR. Performed By: #### 2 4321-2 ####[facility]ATORYCLIA [id number] [place] [address] [place] Glucose [Mass/Vol] 123 mg/dL High 74-99 [facility] Comment on above: Order Comment: Speci tai Type: BLOOD SPECIMENOrdering Facility: [facility] Address: [address] [place] [address] Result Comment: The [place] [employer] (ADA) provides guidance for cutoff values for fasting glucose and random glucose. The ADA defines fasting as no caloric intake for at least 8 hours. Fasting plasma glucose results between 100 to 125 mg/dL indicate increased risk for diabetes (prediabetes).Fasting plasma glucose results greater than or equal to 126 mg/dL meet the criteria for diagnosis of diabetes. In the absence of unequivocal hyperglycemia, results should be confirmed by repeat testing. In a patient with classic symptoms of hyperglycemia or hyperglycemic crisis, random plasma glucose results greater than or equal to 200 mg/dL meet the criteria for diagnosis of diabetes.Reference: Standards of Medical Care in Diabetes 2016, [place] [employer]. Diabetes Care. 2016.39(Suppl 1). Performed By: #### 2 4321-2 ####[facility] LABORATORYCLIA [id number] [place] [address] [place] Potassium [Moles/Vol] 4.4 mmol/L Normal 3.7-5.1 [facility] Comment on above: Order Comment: Cary lujan Type: BLOOD SPECIMENOrdering Facility: [facility] Address: [address] [phone] Performed By: #### 2 4321-2 ####[facility]ORATORYCLIA [id number] [place] [address] [place] Sodium [Moles/Vol] 134 mmol/L Low 136-144 [facility] Comment on above: Order Comment: Speci men Type: BLOOD SPECIMENOrdering Facility: [facility] Address: [address] [address] Performed By: #### 2 4321-2 ####[facility]ORYCLIA [id number] [address] [place] Urea nitrogen [Mass/Vol] 7 mg/dL Normal 7-21 [facility] Comment on above: Order Comment: Speci men Type: BLOOD SPECIMENOrdering Facility: [facility] Address: [address] [address] Performed By: #### 2 4321-2 ####[facility]ATORYCLIA [id number] [address] [place] CASE MANAGEMon 09-21-2022 CASE MANAGEM Normal [facility] CBC panel Auto (Bld)on 09-21 Erythrocyte distribution width (RBC) [Ratio] 15.3 % High 11.5-15.0 [facility] Comment on above: Order Comment: Speci men Type: BLOOD SPECIMENOrdering Facility: [facility] Address: [address] [address] Performed By: #### 5 8410-2 ####[facility]ATORYCLIA [id number] [address] [place] Hematocrit (Bld) [Volume fraction] 42.5 % Normal 36.0-46.0 [facility] Comment on above: Order Comment: Speci men Type: BLOOD SPECIMENOrdering Facility: [facility] Address: [address] [address] Performed By: #### 5 8410-2 ####[facility]ATORYCLIA [id number] [address] [place] Hemoglobin (Bld) [Mass/Vol] 14.5 g/dL Normal 11.5-15.5 [facility] Comment on above: Order Comment: Speci men Type: BLOOD SPECIMENOrdering Facility: [facility] Address: [address] [address] Performed By: #### 5 8410-2 ####[facility]ATORYCLIA [id number] [address] MCH (RBC) [Entitic mass] 34.4 pg High 26.0-34.0 [facility] Comment on above: Order Comment: Speci men Type: BLOOD SPECIMENOrdering Facility: [facility] Address: [address] [place] [address] Performed By: #### 5 8410-2 ####[facility]ATORYCLIA [id number] [address] MCHC (RBC) [Mass/Vol] 34.1 g/dL Normal 30.5-36.0 [facility] Comment on above: Order Comment: Speci men Type: BLOOD SPECIMENOrdering Facility: [facility] Address: [address] [place] [address] Performed By: #### 5 8410-2 ####[facility]ATORYCLIA [id number] [address] MCV (RBC) [Entitic vol] 101.0 fL High 80.0-100.0 [facility] Comment on above: Order Comment: Speci men Type: BLOOD SPECIMENOrdering Facility: [facility] Address: [address] [place] [address] Performed By: #### 5 8410-2 ####[facility]ORYCLIA [id number] [address] Nucleated RBC (Bld) [#/Vol] 10*3/uL Normal <0.01 [facility] Comment on above: Order Comment: Speci men Type: BLOOD SPECIMENOrdering Facility: [facility] Address: [address] [place] [address] Performed By: #### 5 8410-2 ####[facility]ORYCLIA [id number] [address] Platelet mean volume (Bld) [Entitic vol] 11.0 fL Normal 9.0-12.7 [facility] Comment on above: Order Comment: Speci men Type: BLOOD SPECIMENOrdering Facility: [facility] Address: [address] [place] [address] Performed By: #### 5 8410-2 ####[facility]ORYCLIA [id number] [address] OF [facility] Platelets (Bld) [#/Vol] Normal [facility] Comment on above: Order Comment: Speci men Type: BLOOD SPECIMENOrdering Facility: [facility] Address: [address] [place] [address] Result Comment: Plat elets Clumped Estimate Normal. Performed By: #### 5 8410-2 ####[facility]ATORYCLIA [id number] [address] STATES OF [facility] RBC (Bld) [#/Vol] 4.21 10*6/uL Normal 3.90-5.20 [facility] Comment on above: Order Comment: Speci men Type: BLOOD SPECIMENOrdering Facility: [facility] Address: [address] [address] Performed By: #### 5 8410-2 ####[facility]ORYCLIA [id number] [address] OF [facility] WBC (Bld) [#/Vol] 5.39 10*3/uL Normal 3.70-11.00 [facility] Comment on above: Order Comment: Speci men Type: BLOOD SPECIMENOrdering Facility: [facility] Address: [address] [place] [address] Performed By: #### 5 8410-2 ####[facility]ATORYCLIA [id number] [address] [place] Basic metabolic 2000 panelon 09-20-2022 Anion gap [Moles/Vol] 8 mmol/L Low 9-18 [facility] Comment on above: Order Comment: Speci men Type: BLOOD SPECIMENOrdering Facility: [facility] Address: [address] [place] [address] Performed By: #### 2 4321-2 ####[facility]ATORYCLIA [id number] [address] [place] Calcium [Mass/Vol] 8.5 mg/dL Normal 8.5-10.2 [facility] Comment on above: Order Comment: Speci men Type: BLOOD SPECIMENOrdering Facility: [facility] Address: [address] [place] [address] Performed By: #### 2 4321-2 ####[facility]ORYCLIA [id number] [address] [place] Chloride [Moles/Vol] 106 mmol/L High 97-105 [facility] Comment on above: Order Comment: Speci men Type: BLOOD SPECIMENOrdering Facility: [facility] Address: [address] [place] [address] Performed By: #### 2 4321-2 ####[facility]ORYCLIA [id number] [address] [place] CO2 [Moles/Vol] 21 mmol/L Low 22-30 [facility] Comment on above: Order Comment: Speci men Type: BLOOD SPECIMENOrdering Facility: [facility] Address: [address] [place] [address] Performed By: #### 2 4321-2 ####[facility]ORYCLIA [id number] [address] [place] Creatinine [Mass/Vol] 0.44 mg/dL Low 0.58-0.96 [facility] Comment on above: Order Comment: Speci men Type: BLOOD SPECIMENOrdering Facility: [facility] Address: [address] [place] [address] Performed By: #### 2 4321-2 ####[facility]ORYCLIA [id number] [address] ESTIMATED GLOMERULAR FILTRATION RATE 104 mL/min/1.73m??? Normal >=60 [facility] Comment on above: Order Comment: Speci men Type: BLOOD SPECIMENOrdering Facility: [facility] Address: [address] [place], [place] [id number] Result Comment: Mariely mated Glomerular Filtration Rate (eGFR) is calculated using the 2020 CKD-EPI creatinine equation. This equation utilizes serum creatinine, sex, and age as parameters. The creatinine assay has traceable calibration to isotope dilution-mass spectrometry. Refer to KDIGO guidelines for clinical interpretation. In patients with unstable renal function, e.g. those with acute kidney injury, the eGFR may not accurately reflect actual GFR. Performed By: #### 2 4321-2 ####[facility]ATORYCLIA [id number] [place] [address] [place] Glucose [Mass/Vol] 90 mg/dL Normal 74-99 [facility] Comment on above: Order Comment: Speci men Type: BLOOD SPECIMENOrdering Facility: [facility] Address: [address] [address] Result Comment: The [place] [employer] (ADA) provides guidance for cutoff values for fasting glucose and random glucose. The ADA defines fasting as no caloric intake for at least 8 hours. Fasting plasma glucose results between 100 to 125 mg/dL indicate increased risk for diabetes (prediabetes).Fasting plasma glucose results greater than or equal to 126 mg/dL meet the criteria for diagnosis of diabetes. In the absence of unequivocal hyperglycemia, results should be confirmed by repeat testing. In a patient with classic symptoms of hyperglycemia or hyperglycemic crisis, random plasma glucose results greater than or equal to 200 mg/dL meet the criteria for diagnosis of diabetes.Reference: Standards of Medical Care in Diabetes 2016, [place] [employer]. Diabetes Care. 2016.39(Suppl 1). Performed By: #### 2 4321-2 ####[facility]ATORYCLIA [id number] [address] [place] [id number] [place] Potassium [Moles/Vol] Normal [facility] Comment on above: Order Comment: Speci men Type: BLOOD SPECIMENOrdering Facility: [facility] Address: [address] [address] Result Comment: Unab le to assay due to interference from hemolysis. Suggest reorder as clinically indicated. Performed By: #### 2 4321-2 ####[facility]ATORYCLIA [id number] [place] [address] [place] Sodium [Moles/Vol] 135 mmol/L Low 136-144 [facility] Comment on above: Order Comment: Speci men Type: BLOOD SPECIMENOrdering Facility: [facility] Address: [address] [address] Performed By: #### 2 4321-2 ####[facility]ORYCLIA [id number] [address] [place] Urea nitrogen [Mass/Vol] 6 mg/dL Low 7-21 [facility] Comment on above: Order Comment: Speci men Type: BLOOD SPECIMENOrdering Facility: [facility] Address: [address] [address] Performed By: #### 2 4321-2 ####[facility]ORYCLIA [id number] [address] STATES OF [facility] CBC panel Auto (Bld)on 09-20 Erythrocyte distribution width (RBC) [Ratio] 15.1 % High 11.5-15.0 [facility] Comment on above: Order Comment: Speci men Type: BLOOD SPECIMENOrdering Facility: [facility] Address: [address] [place] [address] Performed By: #### 5 8410-2 ####[facility]ORYCLIA [id number] [address] [place] Hematocrit (Bld) [Volume fraction] 37.9 % Normal 36.0-46.0 [facility] Comment on above: Order Comment: Speci men Type: BLOOD SPECIMENOrdering Facility: [facility] Address: [address] [address] Performed By: #### 5 8410-2 ####[facility]ORYCLIA [id number] [address] [place] Hemoglobin (Bld) [Mass/Vol] 13.1 g/dL Normal 11.5-15.5 [facility] Comment on above: Order Comment: Speci men Type: BLOOD SPECIMENOrdering Facility: [facility] Address: [address] [address] Performed By: #### 5 8410-2 ####[facility]ORYCLIA [id number] [address] MCH (RBC) [Entitic mass] 34.1 pg High 26.0-34.0 [facility] Comment on above: Order Comment: Speci men Type: BLOOD SPECIMENOrdering Facility: [facility] Address: [address] [place] [address] Performed By: #### 5 8410-2 ####[facility]ATORYCLIA [id number] [address] MCHC (RBC) [Mass/Vol] 34.6 g/dL Normal 30.5-36.0 [facility] Comment on above: Order Comment: Speci men Type: BLOOD SPECIMENOrdering Facility: [facility] Address: [address] [place] [address] Performed By: #### 5 8410-2 ####[facility]ATORYCLIA [id number] [address] MCV (RBC) [Entitic vol] 98.7 fL Normal 80.0-100.0 [facility] Comment on above: Order Comment: Speci men Type: BLOOD SPECIMENOrdering Facility: [facility] Address: [address] [place] [address] Performed By: #### 5 8410-2 ####[facility]ATORYCLIA [id number] [address] Nucleated RBC (Bld) [#/Vol] 10*3/uL Normal <0.01 [facility] Comment on above: Order Comment: Speci men Type: BLOOD SPECIMENOrdering Facility: [facility] Address: [address] [place] [address] Performed By: #### 5 8410-2 ####[facility]ATORYCLIA [id number] [address] Platelet mean volume (Bld) [Entitic vol] 11.1 fL Normal 9.0-12.7 [facility] Comment on above: Order Comment: Speci men Type: BLOOD SPECIMENOrdering Facility: [facility] Address: [address] [place] [address] Performed By: #### 5 8410-2 ####[facility]ATORYCLIA [id number] [address] STATES OF [facility] Platelets (Bld) [#/Vol] 164 10*3/uL Normal 150-400 [facility] Comment on above: Order Comment: Speci men Type: BLOOD SPECIMENOrdering Facility: [facility] Address: [address] [place] [address] Performed By: #### 5 8410-2 ####[facility]ATORYCLIA [id number] [place] [address] [place] RBC (Bld) [#/Vol] 3.84 10*6/uL Low 3.90-5.20 [facility] Comment on above: Order Comment: Speci men Type: BLOOD SPECIMENOrdering Facility: [facility] Address: [address] [place] [address] Performed By: #### 5 8410-2 ####[facility]ORYCLIA [id number] [address] OF [facility] WBC (Bld) [#/Vol] 5.67 10*3/uL Normal 3.70-11.00 [facility] Comment on above: Order Comment: Speci men Type: BLOOD SPECIMENOrdering Facility: [facility] Address: [address] [place] [address] Performed By: #### 5 8410-2 ####[facility]ATORYCLIA [id number] [address] [place] CTA HEAD W IVCONon 2 CTA HEAD W IVCON Normal [facility] CTA NECK W IVCONon 2 CTA NECK W IVCON Normal [facility] THERAPY NTon 09-20-2022 THERAPY NT Normal [facility] THERAPY NT Normal [facility] ALLIED HEALTHon 09-19-2022 ALLIED HEALTH Normal [facility] Basic metabolic 2000 panelon 09-19-2022 Anion gap [Moles/Vol] 10 mmol/L Normal 9-18 [facility] Comment on above: Order Comment: Speci men Type: BLOOD SPECIMENOrdering Facility: [facility] Address: [address] [place] [address] Performed By: #### 2 4321-2 ####[facility]ATORYCLIA [id number] [place] [address] [place] Calcium [Mass/Vol] 7.3 mg/dL Low 8.5-10.2 [facility] Comment on above: Order Comment: Speci men Type: BLOOD SPECIMENOrdering Facility: [facility] Address: [address] [place] [address] Performed By: #### 2 4321-2 ####[facility]ATORYCLIA [id number] [place] [address] [place] Chloride [Moles/Vol] 106 mmol/L High 97-105 [facility] Comment on above: Order Comment: Speci men Type: BLOOD SPECIMENOrdering Facility: [facility] Address: [address] [place] [address] Performed By: #### 2 4321-2 ####[facility]ORYCLIA [id number] [place] [address] [place] CO2 [Moles/Vol] 19 mmol/L Low 22-30 [facility] Comment on above: Order Comment: Speci men Type: BLOOD SPECIMENOrdering Facility: [facility] Address: [address] [place] [address] Performed By: #### 2 4321-2 ####[facility]ATORYCLIA [id number] [place] [address] [place] Creatinine [Mass/Vol] 0.39 mg/dL Low 0.58-0.96 [facility] Comment on above: Order Comment: Speci men Type: BLOOD SPECIMENOrdering Facility: [facility] Address: [address] [place] [address] Performed By: #### 2 4321-2 ####[facility]ATORYCLIA [id number] [place] [address] [place] ESTIMATED GLOMERULAR FILTRATION RATE 107 mL/min/1.73m??? Normal >=60 [facility] Comment on above: Order Comment: Rejicy lujan Type: BLOOD SPECIMENOrdering Facility: [facility] Address: [address] [place] [address] Result Comment: Mariely mated Glomerular Filtration Rate (eGFR) is calculated using the 2020 CKD-EPI creatinine equation. This equation utilizes serum creatinine, sex, and age as parameters. The creatinine assay has traceable calibration to isotope dilution-mass spectrometry. Refer to KDIGO guidelines for clinical interpretation. In patients with unstable renal function, e.g. those with acute kidney injury, the eGFR may not accurately reflect actual GFR. Performed By: #### 2 4321-2 ####[facility] HOSPITALIA [id number] [place] [address] [place] Glucose [Mass/Vol] 123 mg/dL High 74-99 [facility] Comment on above: Order Comment: Speccy lujan Type: BLOOD SPECIMENOrdering Facility: [facility] Address: [address] [place] [address] Result Comment: The [place] [employer] (ADA) provides guidance for cutoff values for fasting glucose and random glucose. The ADA defines fasting as no caloric intake for at least 8 hours. Fasting plasma glucose results between 100 to 125 mg/dL indicate increased risk for diabetes (prediabetes).Fasting plasma glucose results greater than or equal to 126 mg/dL meet the criteria for diagnosis of diabetes. In the absence of unequivocal hyperglycemia, results should be confirmed by repeat testing. In a patient with classic symptoms of hyperglycemia or hyperglycemic crisis, random plasma glucose results greater than or equal to 200 mg/dL meet the criteria for diagnosis of diabetes.Reference: Standards of Medical Care in Diabetes 2016, [place] [employer]. Diabetes Care. 2016.39(Suppl 1). Performed By: #### 2 4321-2 ####[facility]ATORYCLIA [id number] [place] [address] [place] Potassium [Moles/Vol] 3.1 mmol/L Low 3.7-5.1 [facility] Comment on above: Order Comment: Speci men Type: BLOOD SPECIMENOrdering Facility: [facility] Address: [address] [place] [address] Performed By: #### 2 4321-2 ####[facility]ORATORYCLIA [id number] [address] STATES OF [facility] Sodium [Moles/Vol] 135 mmol/L Low 136-144 [facility] Comment on above: Order Comment: Speci men Type: BLOOD SPECIMENOrdering Facility: [facility] Address: [address] [place] [address] Performed By: #### 2 4321-2 ####[facility]ATORYCLIA [id number] [address] STATES OF [facility] Urea nitrogen [Mass/Vol] 6 mg/dL Low 7-21 [facility] Comment on above: Order Comment: Speci men Type: BLOOD SPECIMENOrdering Facility: [facility] Address: [address] [place] [address] Performed By: #### 2 4321-2 ####[facility]ATORYCLIA [id number] [address] STATES OF [facility] CBC panel Auto (Bld)on 09-19 Erythrocyte distribution width (RBC) [Ratio] 14.7 % Normal 11.5-15.0 [facility] Comment on above: Order Comment: Speci men Type: BLOOD SPECIMENOrdering Facility: [facility] Address: [address] [place] [address] Performed By: #### 5 8410-2 ####[facility]ATORYCLIA [id number] [address] Hematocrit (Bld) [Volume fraction] 38.6 % Normal 36.0-46.0 [facility] Comment on above: Order Comment: Speci men Type: BLOOD SPECIMENOrdering Facility: [facility] Address: [address] [place] [address] Performed By: #### 5 8410-2 ####[facility]ATORYCLIA [id number] [address] OF [facility] Hemoglobin (Bld) [Mass/Vol] 13.3 g/dL Normal 11.5-15.5 [facility] Comment on above: Order Comment: Speci men Type: BLOOD SPECIMENOrdering Facility: [facility] Address: [address] [place] [address] Performed By: #### 5 8410-2 ####[facility]ATORYCLIA [id number] [address] MCH (RBC) [Entitic mass] 34.1 pg High 26.0-34.0 [facility] Comment on above: Order Comment: Speci men Type: BLOOD SPECIMENOrdering Facility: [facility] Address: [address] [place] [address] Performed By: #### 5 8410-2 ####[facility]ATORYCLIA [id number] [address] MCHC (RBC) [Mass/Vol] 34.5 g/dL Normal 30.5-36.0 [facility] Comment on above: Order Comment: Speci men Type: BLOOD SPECIMENOrdering Facility: [facility] Address: [address] [place] [address] Performed By: #### 5 8410-2 ####[facility]ATORYCLIA [id number] [address] MCV (RBC) [Entitic vol] 99.0 fL Normal 80.0-100.0 [facility] Comment on above: Order Comment: Speci men Type: BLOOD SPECIMENOrdering Facility: [facility] Address: [address] [place] [address] Performed By: #### 5 8410-2 ####[facility]ORYCLIA [id number] [address] Nucleated RBC (Bld) [#/Vol] 10*3/uL Normal <0.01 [facility] Comment on above: Order Comment: Speci men Type: BLOOD SPECIMENOrdering Facility: [facility] Address: [address] [address] Performed By: #### 5 8410-2 ####[facility] LABORATORYCLIA [id number] [address] [place] Platelet mean volume (Bld) [Entitic vol] 11.1 fL Normal 9.0-12.7 [facility] Comment on above: Order Comment: Speci men Type: BLOOD SPECIMENOrdering Facility: [facility] Address: [address] [place] [address] Performed By: #### 5 8410-2 ####[facility] LABORATORYCLIA [id number] [address] [place] Platelets (Bld) [#/Vol] 123 10*3/uL Low 150-400 [facility] Comment on above: Order Comment: Speci men Type: BLOOD SPECIMENOrdering Facility: [facility] Address: [address] [place] [address] Result Comment: Plat elet count confirmed by manual review of peripheral blood smear Performed By: #### 5 8410-2 ####[facility] LABORATORYCLIA [id number] [place] [address] [place] RBC (Bld) [#/Vol] 3.90 10*6/uL Normal 3.90-5.20 [facility] Comment on above: Order Comment: Speci men Type: BLOOD SPECIMENOrdering Facility: [facility] Address: [address] [place] [address] Performed By: #### 5 8410-2 ####[facility]ORATORYCLIA [id number] [address] [place] WBC (Bld) [#/Vol] 7.75 10*3/uL Normal 3.70-11.00 [facility] Comment on above: Order Comment: Speci men Type: BLOOD SPECIMENOrdering Facility: [facility] Address: [address] [place] [address] Performed By: #### 5 8410-2 ####[facility]ORATORYCLIA [id number] [place] [address] [place] CNPNon 09-19-2022 CNPN Normal [facility] CONSULTon 09-19-2022 CONSULT Normal [facility] CT BRAIN WO IVCONon 09-19-20 CT BRAIN WO IVCON Normal [facility] NURSING PROGon 09-19-2022 NURSING PROG Normal [facility] ALLIED HEALTHon 09-18-2022 ALLIED HEALTH Normal [facility] Basic metabolic 2000 panelon 09-18-2022 Anion gap [Moles/Vol] 17 mmol/L Normal 9-18 [facility] Comment on above: Order Comment: Speci men Type: BLOOD SPECIMENOrdering Facility: [facility] Address: [address] [place] [address] Performed By: #### 2 4321-2 ####[facility]ORATORYCLIA [id number] [place] [address] [place] Calcium [Mass/Vol] 7.7 mg/dL Low 8.5-10.2 [facility] Comment on above: Order Comment: Speci men Type: BLOOD SPECIMENOrdering Facility: [facility] Address: [address] [place] [address] Performed By: #### 2 4321-2 ####[facility]ATORYCLIA [id number] [place] [address] [place] Chloride [Moles/Vol] 99 mmol/L Normal 97-105 [facility] Comment on above: Order Comment: Speci men Type: BLOOD SPECIMENOrdering Facility: [facility] Address: [address] [address] Performed By: #### 2 4321-2 ####[facility]ATORYCLIA [id number] [place] [address] [place] CO2 [Moles/Vol] 18 mmol/L Low 22-30 [facility] Comment on above: Order Comment: Speci men Type: BLOOD SPECIMENOrdering Facility: [facility] Address: [address] [address] Performed By: #### 2 4321-2 ####[facility] HOSPITALIA [id number] [address] STATES OF [facility] Creatinine [Mass/Vol] 0.40 mg/dL Low 0.58-0.96 [facility] Comment on above: Order Comment: Cary lujan Type: BLOOD SPECIMENOrdering Facility: [facility] Address: [address] [place] [address] Performed By: #### 2 4321-2 ####[facility] HOSPITALIA [id number] [address] ESTIMATED GLOMERULAR FILTRATION RATE 106 mL/min/1.73m??? Normal >=60 [facility] Comment on above: Order Comment: Cary lujan Type: BLOOD SPECIMENOrdering Facility: [facility] Address: [address] [place] [address] Result Comment: Mariely mated Glomerular Filtration Rate (eGFR) is calculated using the 2020 CKD-EPI creatinine equation. This equation utilizes serum creatinine, sex, and age as parameters. The creatinine assay has traceable calibration to isotope dilution-mass spectrometry. Refer to KDIGO guidelines for clinical interpretation. In patients with unstable renal function, e.g. those with acute kidney injury, the eGFR may not accurately reflect actual GFR. Performed By: #### 2 4321-2 ####[facility] HOSPITALIA [id number] [address] Glucose [Mass/Vol] 82 mg/dL Normal 74-99 [facility] Comment on above: Order Comment: Cary tai Type: BLOOD SPECIMENOrdering Facility: [facility] Address: [address] [place] [address] Result Comment: The [place] [employer] (ADA) provides guidance for cutoff values for fasting glucose and random glucose. The ADA defines fasting as no caloric intake for at least 8 hours. Fasting plasma glucose results between 100 to 125 mg/dL indicate increased risk for diabetes (prediabetes).Fasting plasma glucose results greater than or equal to 126 mg/dL meet the criteria for diagnosis of diabetes. In the absence of unequivocal hyperglycemia, results should be confirmed by repeat testing. In a patient with classic symptoms of hyperglycemia or hyperglycemic crisis, random plasma glucose results greater than or equal to 200 mg/dL meet the criteria for diagnosis of diabetes.Reference: Standards of Medical Care in Diabetes 2016, [place] [employer]. Diabetes Care. 2016.39(Suppl 1). Performed By: #### 2 4321-2 ####[facility]ORATORYCLIA [id number] [address] [place] Potassium [Moles/Vol] 3.3 mmol/L Low 3.7-5.1 [facility] Comment on above: Order Comment: Cary lujan Type: BLOOD SPECIMENOrdering Facility: [facility] Address: [address] [place] [address] Performed By: #### 2 4321-2 ####[facility]ITALCLIA [id number] [address] STATES OF [facility] Sodium [Moles/Vol] 134 mmol/L Low 136-144 [facility] Comment on above: Order Comment: Cary lujan Type: BLOOD SPECIMENOrdering Facility: [facility] Address: [address] [place] [address] Performed By: #### 2 4321-2 ####[facility]ATORYCLIA [id number] [address] [place] Urea nitrogen [Mass/Vol] 4 mg/dL Low 7-21 [facility] Comment on above: Order Comment: Cary lujan Type: BLOOD SPECIMENOrdering Facility: [facility] Address: [address] [place] [address] Performed By: #### 2 4321-2 ####[facility]PITALCLIA [id number] [place] [address] [place] C diff Tox gens Stl Ql CY+p robeon 09-18-2022 C. difficile toxin genes CY+probe Ql (Stl) Positive Abnormal Negative for C. difficile toxin by PCR [facility] Comment on above: Order Comment: Cary lujan Type: STOOL SPECIMENOrdering Facility: [facility] Address: [address] [place] [address] Result Comment: A po sitive PCR result may indicate C.difficile infection or colonization. The positive predictive value of this test for C.difficile infection is highest for patients with clinically significant diarrhea (>=3 unformed stools in 24h) who do not have an alternative explanation (e.g., recent receipt of laxatives).Toxin EIA testing will also be performed as recommended by IDSA clinical practice guidelines for institutions without pre-agreed criteria for specimen submission. Performed By: #### 5 4067-4, CDEIA ####[facility]ORATORYCLIA [id number] [address] C. DIFFICILE TOXIN BY EIAon 09-18-2022 C. difficile toxin A+B IA Ql (Stl) Not detected Normal Negative for C. difficile toxin [facility] Comment on above: Order Comment: Cary lujan Type: STOOL SPECIMENOrdering Facility: [facility] Address: [address] [place] [address] Result Comment: Toxi n EIA is less sensitive than cell cytotoxin and PCR assays. Clinical correlation of PCR positive/toxin EIA negative results is required to distinguish C. difficle colonization from disease. Performed By: #### 5 4067-4, CDEIA ####[facility]ATORYCLIA [id number] [address] CASE MANAGEMon 09-18-2022 CASE MANAGEM Normal [facility] CASE MANAGEM Normal [facility] CBC panel Auto (Bld)on 09-18 Erythrocyte distribution width (RBC) [Ratio] 14.4 % Normal 11.5-15.0 [facility] Comment on above: Order Comment: Cary lujan Type: BLOOD SPECIMENOrdering Facility: [facility] Address: [address] [address] Performed By: #### 5 8410-2 ####[facility]ATORYCLIA [id number] [address] Hematocrit (Bld) [Volume fraction] 34.9 % Low 36.0-46.0 [facility] Comment on above: Order Comment: Cary lujan Type: BLOOD SPECIMENOrdering Facility: [facility] Address: [address] [address] Performed By: #### 5 8410-2 ####[facility]ORYCLIA [id number] [address] Hemoglobin (Bld) [Mass/Vol] 12.2 g/dL Normal 11.5-15.5 [facility] Comment on above: Order Comment: Speci men Type: BLOOD SPECIMENOrdering Facility: [facility] Address: [address] [place] [address] Performed By: #### 5 8410-2 ####[facility]ATORYCLIA [id number] [address] MCH (RBC) [Entitic mass] 34.2 pg High 26.0-34.0 [facility] Comment on above: Order Comment: Speci men Type: BLOOD SPECIMENOrdering Facility: [facility] Address: [address] [place] [address] Performed By: #### 5 8410-2 ####[facility]ATORYCLIA [id number] [address] MCHC (RBC) [Mass/Vol] 35.0 g/dL Normal 30.5-36.0 [facility] Comment on above: Order Comment: Speci men Type: BLOOD SPECIMENOrdering Facility: [facility] Address: [address] [place] [address] Performed By: #### 5 8410-2 ####[facility]ATORYCLIA [id number] [address] MCV (RBC) [Entitic vol] 97.8 fL Normal 80.0-100.0 [facility] Comment on above: Order Comment: Speci men Type: BLOOD SPECIMENOrdering Facility: [facility] Address: [address] [place] [address] Performed By: #### 5 8410-2 ####[facility]ATORYCLIA [id number] [address] Nucleated RBC (Bld) [#/Vol] 10*3/uL Normal <0.01 [facility] Comment on above: Order Comment: Speci men Type: BLOOD SPECIMENOrdering Facility: [facility] Address: [address] [place] [address] Performed By: #### 5 8410-2 ####[facility]ATORYCLIA [id number] [address] [place] Platelet mean volume (Bld) [Entitic vol] 10.8 fL Normal 9.0-12.7 [facility] Comment on above: Order Comment: Speci men Type: BLOOD SPECIMENOrdering Facility: [facility] Address: [address] [place] [address] Performed By: #### 5 8410-2 ####[facility]ORYCLIA [id number] [place] [address] [place] Platelets (Bld) [#/Vol] 111 10*3/uL Low 150-400 [facility] Comment on above: Order Comment: Speci men Type: BLOOD SPECIMENOrdering Facility: [facility] Address: [address] [place] [address] Result Comment: Resu lts checked and verified Performed By: #### 5 8410-2 ####[facility]ORYCLIA [id number] [place] [address] [place] RBC (Bld) [#/Vol] 3.57 10*6/uL Low 3.90-5.20 [facility] Comment on above: Order Comment: Speci men Type: BLOOD SPECIMENOrdering Facility: [facility] Address: [address] [place] [address] Performed By: #### 5 8410-2 ####[facility]ATORYCLIA [id number] [place] [address] [place] WBC (Bld) [#/Vol] 7.36 10*3/uL Normal 3.70-11.00 [facility] Comment on above: Order Comment: Speci men Type: BLOOD SPECIMENOrdering Facility: [facility] Address: [address] [place] [address] Performed By: #### 5 8410-2 ####[facility]ATORYCLIA [id number] [place] [address] [place] THERAPY NTon 09-18-2022 THERAPY NT Normal [facility] THERAPY NT Normal [facility] Basic metabolic 2000 panelon 09-17-2022 Anion gap [Moles/Vol] 14 mmol/L Normal 9-18 [facility] Comment on above: Order Comment: Speci men Type: BLOOD SPECIMENOrdering Facility: [facility] Address: [address] [place] [address] Performed By: #### 2 4321-2, , 2776-10 ####[facility]ATORYCLIA [id number] [place] [address] [place] Calcium [Mass/Vol] 7.4 mg/dL Low 8.5-10.2 [facility] Comment on above: Order Comment: Speci men Type: BLOOD SPECIMENOrdering Facility: [facility] Address: [address] [place] [address] Performed By: #### 2 4321-2, , 2776-10 ####[facility]ATORYCLIA [id number] [place] [address] [place] Chloride [Moles/Vol] 100 mmol/L Normal 97-105 [facility] Comment on above: Order Comment: Speci men Type: BLOOD SPECIMENOrdering Facility: [facility] Address: [address] [place] [address] Performed By: #### 2 4321-2, , 2776-10 ####[facility]ATORYCLIA [id number] [place] [address] [place] CO2 [Moles/Vol] 17 mmol/L Low 22-30 [facility] Comment on above: Order Comment: Speci men Type: BLOOD SPECIMENOrdering Facility: [facility] Address: [address] [address] Performed By: #### 2 4321-2, , 2776- ####[facility]ORATORYCLIA [id number] [address] STATES OF [facility] Creatinine [Mass/Vol] 0.41 mg/dL Low 0.58-0.96 [facility] Comment on above: Order Comment: Cary lujan Type: BLOOD SPECIMENOrdering Facility: [facility] Address: [address] [place] [address] Performed By: #### 2 4321-2, , 2776-10 ####[facility] HOSPITALIA [id number] [address] ESTIMATED GLOMERULAR FILTRATION RATE 105 mL/min/1.73m??? Normal >=60 [facility] Comment on above: Order Comment: Cary lujan Type: BLOOD SPECIMENOrdering Facility: [facility] Address: [address] [place] [address] Result Comment: Mariely mated Glomerular Filtration Rate (eGFR) is calculated using the 2020 CKD-EPI creatinine equation. This equation utilizes serum creatinine, sex, and age as parameters. The creatinine assay has traceable calibration to isotope dilution-mass spectrometry. Refer to KDIGO guidelines for clinical interpretation. In patients with unstable renal function, e.g. those with acute kidney injury, the eGFR may not accurately reflect actual GFR. Performed By: #### 2 4321-2, , 2776-10 ####[facility] HOSPITALIA [id number] [address] STATES OF [facility] Glucose [Mass/Vol] 88 mg/dL Normal 74-99 [facility] Comment on above: Order Comment: Cary lujan Type: BLOOD SPECIMENOrdering Facility: [facility] Address: [address] [place] [address] Result Comment: The [place] Diabetes [employer] (ADA) provides guidance for cutoff values for fasting glucose and random glucose. The ADA defines fasting as no caloric intake for at least 8 hours. Fasting plasma glucose results between 100 to 125 mg/dL indicate increased risk for diabetes (prediabetes).Fasting plasma glucose results greater than or equal to 126 mg/dL meet the criteria for diagnosis of diabetes. In the absence of unequivocal hyperglycemia, results should be confirmed by repeat testing. In a patient with classic symptoms of hyperglycemia or hyperglycemic crisis, random plasma glucose results greater than or equal to 200 mg/dL meet the criteria for diagnosis of diabetes.Reference: Standards of Medical Care in Diabetes 2016, [place] [employer]. Diabetes Care. 2016.39(Suppl 1). Performed By: #### 2 4321-2, , 2776-10 ####[facility]ATORYCLIA [id number] [place] [address] [place] Potassium [Moles/Vol] Normal [facility] Comment on above: Order Comment: Speci men Type: BLOOD SPECIMENOrdering Facility: [facility] Address: [address] [address] Result Comment: Unab le to assay due to interference from hemolysis. Suggest reorder as clinically indicated. Performed By: #### 2 4321-2, , 2776-10 ####[facility]ATORYCLIA [id number] [address] [place] Sodium [Moles/Vol] 131 mmol/L Low 136-144 [facility] Comment on above: Order Comment: Cary lujan Type: BLOOD SPECIMENOrdering Facility: [facility] Address: [address] [address] Performed By: #### 2 432-2, , 2776-10 ####[facility]ATORYCLIA [id number] [address] [place] Urea nitrogen [Mass/Vol] 6 mg/dL Low 7-21 [facility] Comment on above: Order Comment: Cary lujan Type: BLOOD SPECIMENOrdering Facility: [facility] Address: [address] [address] Performed By: #### 2 4321-2, , 2776-10 ####[facility]ATORYCLIA [id number] [place] [address] [place] CASE MGT INIT ASSESon 2021 CASE MGT INIT ASSES Normal [facility] CBC panel Auto (Bld)on 09-17 Erythrocyte distribution width (RBC) [Ratio] 14.9 % Normal 11.5-15.0 [facility] Comment on above: Order Comment: Speci men Type: BLOOD SPECIMENOrdering Facility: [facility] Address: [address] [place] [address] Performed By: #### 5 8410-2 ####[facility]ATORYCLIA [id number] [address] OF [facility] Hematocrit (Bld) [Volume fraction] 36.9 % Normal 36.0-46.0 [facility] Comment on above: Order Comment: Speci men Type: BLOOD SPECIMENOrdering Facility: [facility] Address: [address] [place] [address] Performed By: #### 5 8410-2 ####[facility]ATORYCLIA [id number] [address] [place] Hemoglobin (Bld) [Mass/Vol] 12.5 g/dL Normal 11.5-15.5 [facility] Comment on above: Order Comment: Speci men Type: BLOOD SPECIMENOrdering Facility: [facility] Address: [address] [place] [address] Performed By: #### 5 8410-2 ####[facility]ORYCLIA [id number] [address] [place] MCH (RBC) [Entitic mass] 34.2 pg High 26.0-34.0 [facility] Comment on above: Order Comment: Speci men Type: BLOOD SPECIMENOrdering Facility: [facility] Address: [address] [place] [address] Performed By: #### 5 8410-2 ####[facility]ORYCLIA [id number] [address] [place] MCHC (RBC) [Mass/Vol] 33.9 g/dL Normal 30.5-36.0 [facility] Comment on above: Order Comment: Speci men Type: BLOOD SPECIMENOrdering Facility: [facility] Address: [address] [place] [address] Performed By: #### 5 8410-2 ####[facility]ORYCLIA [id number] [address] [place] MCV (RBC) [Entitic vol] 101.1 fL High 80.0-100.0 [facility] Comment on above: Order Comment: Speci men Type: BLOOD SPECIMENOrdering Facility: [facility] Address: [address] [place] [address] Performed By: #### 5 8410-2 ####[facility]ORYCLIA [id number] [address] [place] Nucleated RBC (Bld) [#/Vol] 10*3/uL Normal <0.01 [facility] Comment on above: Order Comment: Speci men Type: BLOOD SPECIMENOrdering Facility: [facility] Address: [address] [place] [address] Performed By: #### 5 8410-2 ####[facility]ATORYCLIA [id number] [address] STATES OF [facility] Platelet mean volume (Bld) [Entitic vol] 11.2 fL Normal 9.0-12.7 [facility] Comment on above: Order Comment: Speci men Type: BLOOD SPECIMENOrdering Facility: [facility] Address: [address] [place] [address] Performed By: #### 5 8410-2 ####[facility]ORYCLIA [id number] [address] STATES OF [facility] Platelets (Bld) [#/Vol] 97 10*3/uL Low 150-400 [facility] Comment on above: Order Comment: Speci men Type: BLOOD SPECIMENOrdering Facility: [facility] Address: [address] [place] [address] Result Comment: Plat elet count confirmed by manual review of peripheral blood smear Performed By: #### 5 8410-2 ####[facility]ORYCLIA [id number] [address] [place] RBC (Bld) [#/Vol] 3.65 10*6/uL Low 3.90-5.20 [facility] Comment on above: Order Comment: Speci men Type: BLOOD SPECIMENOrdering Facility: [facility] Address: [address] [place] [address] Performed By: #### 5 8410-2 ####[facility]ATORYCLIA [id number] [place] [address] [place] WBC (Bld) [#/Vol] 6.16 10*3/uL Normal 3.70-11.00 [facility] Comment on above: Order Comment: Speci men Type: BLOOD SPECIMENOrdering Facility: [facility] Address: [address] [place] [address] Performed By: #### 5 8410-2 ####[facility]ORYCLIA [id number] [address] [place] Magnesium SerPl-mCncon 09-17 Magnesium [Mass/Vol] 1.7 mg/dL Normal 1.7-2.3 [facility] Comment on above: Order Comment: Speci men Type: BLOOD SPECIMENOrdering Facility: [facility] Address: [address] [place] [address] Performed By: #### 2 4321-2, , 2776-10 ####[facility]ORYCLIA [id number] [address] [place] Phosphate SerPl-mCncon 09-17 Phosphate [Mass/Vol] 1.1 mg/dL Low 2.7-4.8 [facility] Comment on above: Order Comment: Speci men Type: BLOOD SPECIMENOrdering Facility: [facility] Address: [address] [place] [address] Performed By: #### 2 4321-2, , 2776-10 ####[facility]ATORYCLIA [id number] [place] [address] [place] Basic metabolic 2000 panelon 09-16-2022 Anion gap [Moles/Vol] 14 mmol/L Normal 9-18 [facility] Comment on above: Order Comment: Speci men Type: BLOOD SPECIMENOrdering Facility: [facility] Address: [address] [address] Performed By: #### 2 4321-2, 2776-10, ####[facility] LABORATORYCLIA [id number] [place] [address] [place] Calcium [Mass/Vol] 7.7 mg/dL Low 8.5-10.2 [facility] Comment on above: Order Comment: Speci men Type: BLOOD SPECIMENOrdering Facility: [facility] Address: [address] [address] Performed By: #### 2 4321-2, 2776-10, ####[facility]ATORYCLIA [id number] [place] [address] [place] Chloride [Moles/Vol] 100 mmol/L Normal 97-105 [facility] Comment on above: Order Comment: Speci men Type: BLOOD SPECIMENOrdering Facility: [facility] Address: [address] [address] Performed By: #### 2 4321-2, 2776-10, ####[facility]ATORYCLIA [id number] [place] [address] [place] CO2 [Moles/Vol] 23 mmol/L Normal 22-30 [facility] Comment on above: Order Comment: Speci men Type: BLOOD SPECIMENOrdering Facility: [facility] Address: [address] [address] Performed By: #### 2 4321-2, 2776-10, ####[facility] LABORATORYCLIA [id number] [place] [address] [place] Creatinine [Mass/Vol] 0.42 mg/dL Low 0.58-0.96 [facility] Comment on above: Order Comment: Speci men Type: BLOOD SPECIMENOrdering Facility: [facility] Address: [address] [address] Performed By: #### 2 4321-2, 2776-10, ####[facility] HOSPITALIA [id number] [address] ESTIMATED GLOMERULAR FILTRATION RATE 105 mL/min/1.73m??? Normal >=60 [facility] Comment on above: Order Comment: Cary tai Type: BLOOD SPECIMENOrdering Facility: [facility] Address: [address] [place] [address] Result Comment: Mariely mated Glomerular Filtration Rate (eGFR) is calculated using the 2020 CKD-EPI creatinine equation. This equation utilizes serum creatinine, sex, and age as parameters. The creatinine assay has traceable calibration to isotope dilution-mass spectrometry. Refer to KDIGO guidelines for clinical interpretation. In patients with unstable renal function, e.g. those with acute kidney injury, the eGFR may not accurately reflect actual GFR. Performed By: #### 2 4321-2, 2777-, ####[facility] HOSPITALIA [id number] [address] Glucose [Mass/Vol] 102 mg/dL High 74-99 [facility] Comment on above: Order Comment: Cary lujan Type: BLOOD SPECIMENOrdering Facility: [facility] Address: [address] [place] [address] Result Comment: The [place] [employer] (ADA) provides guidance for cutoff values for fasting glucose and random glucose. The ADA defines fasting as no caloric intake for at least 8 hours. Fasting plasma glucose results between 100 to 125 mg/dL indicate increased risk for diabetes (prediabetes).Fasting plasma glucose results greater than or equal to 126 mg/dL meet the criteria for diagnosis of diabetes. In the absence of unequivocal hyperglycemia, results should be confirmed by repeat testing. In a patient with classic symptoms of hyperglycemia or hyperglycemic crisis, random plasma glucose results greater than or equal to 200 mg/dL meet the criteria for diagnosis of diabetes.Reference: Standards of Medical Care in Diabetes 2016, [place] [employer]. Diabetes Care. 2016.39(Suppl 1). Performed By: #### 2 4321-2, 2777-, ####[facility] HOSPITALIA [id number] [place] [id number] [place] Potassium [Moles/Vol] 3.5 mmol/L Low 3.7-5.1 [facility] Comment on above: Order Comment: Speci men Type: BLOOD SPECIMENOrdering Facility: [facility] Address: [address] [address] Performed By: #### 2 4321-2, 2776-, ####[facility]ORATORYCLIA [id number] [address] STATES [facility] Sodium [Moles/Vol] 137 mmol/L Normal 136-144 [facility] Comment on above: Order Comment: Speci men Type: BLOOD SPECIMENOrdering Facility: [facility] Address: [address] [place] [address] Performed By: #### 2 4321-2, 2776-10, ####[facility]ATORYCLIA [id number] [address] Urea nitrogen [Mass/Vol] 11 mg/dL Normal 7-21 [facility] Comment on above: Order Comment: Speci men Type: BLOOD SPECIMENOrdering Facility: [facility] Address: [address] [place] [address] Performed By: #### 2 4321-2, 2776-10, ####[facility]ATORYCLIA [id number] [address] OF [facility] CBC panel Auto (Bld)on 09-16 Erythrocyte distribution width (RBC) [Ratio] 15.4 % High 11.5-15.0 [facility] Comment on above: Order Comment: Speci men Type: BLOOD SPECIMENOrdering Facility: [facility] Address: [address] [place] [address] Performed By: #### 5 8410-2 ####[facility]ORATORYCLIA [id number] [address] Hematocrit (Bld) [Volume fraction] 36.7 % Normal 36.0-46.0 [facility] Comment on above: Order Comment: Speci men Type: BLOOD SPECIMENOrdering Facility: [facility] Address: [address] [place] [address] Performed By: #### 5 8410-2 ####[facility]ATORYCLIA [id number] [address] Hemoglobin (Bld) [Mass/Vol] 12.3 g/dL Normal 11.5-15.5 [facility] Comment on above: Order Comment: Speci men Type: BLOOD SPECIMENOrdering Facility: [facility] Address: [address] [place] [address] Performed By: #### 5 8410-2 ####[facility]ATORYCLIA [id number] [address] MCH (RBC) [Entitic mass] 33.7 pg Normal 26.0-34.0 [facility] Comment on above: Order Comment: Speci men Type: BLOOD SPECIMENOrdering Facility: [facility] Address: [address] [place] [address] Performed By: #### 5 8410-2 ####[facility]ORYCLIA [id number] [address] MCHC (RBC) [Mass/Vol] 33.5 g/dL Normal 30.5-36.0 [facility] Comment on above: Order Comment: Speci men Type: BLOOD SPECIMENOrdering Facility: [facility] Address: [address] [place] [address] Performed By: #### 5 8410-2 ####[facility]ATORYCLIA [id number] [address] STATES OF [facility] MCV (RBC) [Entitic vol] 100.5 fL High 80.0-100.0 [facility] Comment on above: Order Comment: Speci men Type: BLOOD SPECIMENOrdering Facility: [facility] Address: [address] [place] [address] Performed By: #### 5 8410-2 ####[facility]ATORYCLIA [id number] [address] [place] Nucleated RBC (Bld) [#/Vol] 10*3/uL Normal <0.01 [facility] Comment on above: Order Comment: Speci men Type: BLOOD SPECIMENOrdering Facility: [facility] Address: [address] [place] [address] Performed By: #### 5 8410-2 ####[facility]ATORYCLIA [id number] [address] [place] Platelet mean volume (Bld) [Entitic vol] 10.2 fL Normal 9.0-12.7 [facility] Comment on above: Order Comment: Speci men Type: BLOOD SPECIMENOrdering Facility: [facility] Address: [address] [place] [address] Performed By: #### 5 8410-2 ####[facility]ATORYCLIA [id number] [address] [place] Platelets (Bld) [#/Vol] 118 10*3/uL Low 150-400 [facility] Comment on above: Order Comment: Speci men Type: BLOOD SPECIMENOrdering Facility: [facility] Address: [address] [place] [address] Performed By: #### 5 8410-2 ####[facility]ATORYCLIA [id number] [address] [place] RBC (Bld) [#/Vol] 3.65 10*6/uL Low 3.90-5.20 [facility] Comment on above: Order Comment: Speci men Type: BLOOD SPECIMENOrdering Facility: [facility] Address: [address] [place] [address] Performed By: #### 5 8410-2 ####[facility]ATORYCLIA [id number] [address] [place] WBC (Bld) [#/Vol] 6.17 10*3/uL Normal 3.70-11.00 [facility] Comment on above: Order Comment: Speci men Type: BLOOD SPECIMENOrdering Facility: [facility] Address: [address] [address] Performed By: #### 5 8410-2 ####[facility]ATORYCLIA [id number] [address] [place] CONSULT PROGon 09-16-2022 CONSULT PROG Normal [facility] Magnesium SerPl-ncon 09-16 Magnesium [Mass/Vol] 2.2 mg/dL Normal 1.7-2.3 [facility] Comment on above: Order Comment: Speci men Type: BLOOD SPECIMENOrdering Facility: [facility] Address: [address] [address] Performed By: #### 2 4321-2, 2776-10, ####[facility]ATORYCLIA [id number] [address] Phosphate SerPl-mCncon 09-16 Phosphate [Mass/Vol] 1.2 mg/dL Low 2.7-4.8 [facility] Comment on above: Order Comment: Speci men Type: BLOOD SPECIMENOrdering Facility: [facility] Address: [address] [address] Performed By: #### 2 4321-2, 2776-10, ####[facility]ORYCLIA [id number] [address] [place] THERAPY NTon 09-16-2022 THERAPY NT Normal [facility] THERAPY NT Normal [facility] Basic metabolic 2000 panelon 09-15-2022 Anion gap [Moles/Vol] 22 mmol/L High 9-18 [facility] Comment on above: Order Comment: Speci men Type: BLOOD SPECIMENOrdering Facility: [facility] Address: [address] [address] Performed By: #### 1 9123-9, 2777-1, 24845-2 ####[facility]ATORYCLIA [id number] [address] [place] Calcium [Mass/Vol] 8.6 mg/dL Normal 8.5-10.2 [facility] Comment on above: Order Comment: Speci men Type: BLOOD SPECIMENOrdering Facility: [facility] Address: [address] [address] Performed By: #### 1 9123-9, 2776-10, ####[facility]ATORYCLIA [id number] [place] [address] [place] Chloride [Moles/Vol] 99 mmol/L Normal 97-105 [facility] Comment on above: Order Comment: Speci men Type: BLOOD SPECIMENOrdering Facility: [facility] Address: [address] [address] Performed By: #### 1 9123-9, 2776-10, ####[facility]ORYCLIA [id number] [address] [place] CO2 [Moles/Vol] 20 mmol/L Low 22-30 [facility] Comment on above: Order Comment: Speci men Type: BLOOD SPECIMENOrdering Facility: [facility] Address: [address] [address] Performed By: #### 1 9123-9, 2776-10, ####[facility]ATORYCLIA [id number] [address] STATES OF [facility] Creatinine [Mass/Vol] 0.48 mg/dL Low 0.58-0.96 [facility] Comment on above: Order Comment: Speci men Type: BLOOD SPECIMENOrdering Facility: [facility] Address: [address] [address] Performed By: #### 1 9123-9, 27704-13, 70422-6 ####[facility]ATORYCLIA [id number] [address] ESTIMATED GLOMERULAR FILTRATION RATE 101 mL/min/1.73m??? Normal >=60 [facility] Comment on above: Order Comment: Speci men Type: BLOOD SPECIMENOrdering Facility: [facility] Address: [address] [address] Result Comment: Mariely mated Glomerular Filtration Rate (eGFR) is calculated using the 2020 CKD-EPI creatinine equation. This equation utilizes serum creatinine, sex, and age as parameters. The creatinine assay has traceable calibration to isotope dilution-mass spectrometry. Refer to KDIGO guidelines for clinical interpretation. In patients with unstable renal function, e.g. those with acute kidney injury, the eGFR may not accurately reflect actual GFR. Performed By: #### 1 9123-9, 2777-1, 66473-4 ####[facility] HOSPITALIA [id number] [place] [address] [place] Glucose [Mass/Vol] 69 mg/dL Low 74-99 [facility] Comment on above: Order Comment: Cary lujan Type: BLOOD SPECIMENOrdering Facility: [facility] Address: [address] [place] [address] Result Comment: The [place] Diabetes [employer] (ADA) provides guidance for cutoff values for fasting glucose and random glucose. The ADA defines fasting as no caloric intake for at least 8 hours. Fasting plasma glucose results between 100 to 125 mg/dL indicate increased risk for diabetes (prediabetes).Fasting plasma glucose results greater than or equal to 126 mg/dL meet the criteria for diagnosis of diabetes. In the absence of unequivocal hyperglycemia, results should be confirmed by repeat testing. In a patient with classic symptoms of hyperglycemia or hyperglycemic crisis, random plasma glucose results greater than or equal to 200 mg/dL meet the criteria for diagnosis of diabetes.Reference: Standards of Medical Care in Diabetes 2016, [place] [employer]. Diabetes Care. 2016.39(Suppl 1). Performed By: #### 1 9123-9, 2777-, 49319-8 ####[facility] LABORATORYIA [id number] [place] [address] [place] Potassium [Moles/Vol] 4.2 mmol/L Normal 3.7-5.1 [facility] Comment on above: Order Comment: Cary lujan Type: BLOOD SPECIMENOrdering Facility: [facility] Address: [address] [place] [address] Performed By: #### 1 9123-9, 2777-, 78587-7 ####[facility]ATORYCLIA [id number] [address] STATES [facility] Sodium [Moles/Vol] 141 mmol/L Normal 136-144 [facility] Comment on above: Order Comment: Speci men Type: BLOOD SPECIMENOrdering Facility: [facility] Address: [address] [place] [address] Performed By: #### 1 9123-9, 2777-1, 84269-3 ####[facility]ATORYCLIA [id number] [address] [place] Urea nitrogen [Mass/Vol] 14 mg/dL Normal 7-21 [facility] Comment on above: Order Comment: Speci men Type: BLOOD SPECIMENOrdering Facility: [facility] Address: [address] [place] [address] Performed By: #### 1 9123-9, 2777-1, 25278-1 ####[facility]ATORYCLIA [id number] [address] STATES OF [facility] CBC panel Auto (Bld)on 09-15 Erythrocyte distribution width (RBC) [Ratio] 15.5 % High 11.5-15.0 [facility] Comment on above: Order Comment: Speci men Type: BLOOD SPECIMENOrdering Facility: [facility] Address: [address] [place] [address] Performed By: #### 5 8410-2 ####[facility]ATORYCLIA [id number] [address] [place] Hematocrit (Bld) [Volume fraction] 40.3 % Normal 36.0-46.0 [facility] Comment on above: Order Comment: Speci men Type: BLOOD SPECIMENOrdering Facility: [facility] Address: [address] [place] [address] Performed By: #### 5 8410-2 ####[facility]ATORYCLIA [id number] [address] [place] Hemoglobin (Bld) [Mass/Vol] 13.9 g/dL Normal 11.5-15.5 [facility] Comment on above: Order Comment: Speci men Type: BLOOD SPECIMENOrdering Facility: [facility] Address: [address] [place] [address] Performed By: #### 5 8410-2 ####[facility]ATORYCLIA [id number] [address] MCH (RBC) [Entitic mass] 34.2 pg High 26.0-34.0 [facility] Comment on above: Order Comment: Speci men Type: BLOOD SPECIMENOrdering Facility: [facility] Address: [address] [place] [address] Performed By: #### 5 8410-2 ####[facility]ATORYCLIA [id number] [address] MCHC (RBC) [Mass/Vol] 34.5 g/dL Normal 30.5-36.0 [facility] Comment on above: Order Comment: Speci men Type: BLOOD SPECIMENOrdering Facility: [facility] Address: [address] [place] [address] Performed By: #### 5 8410-2 ####[facility]ATORYCLIA [id number] [address] MCV (RBC) [Entitic vol] 99.3 fL Normal 80.0-100.0 [facility] Comment on above: Order Comment: Speci men Type: BLOOD SPECIMENOrdering Facility: [facility] Address: [address] [place] [address] Performed By: #### 5 8410-2 ####[facility]ATORYCLIA [id number] [address] Nucleated RBC (Bld) [#/Vol] 10*3/uL Normal <0.01 [facility] Comment on above: Order Comment: Speci men Type: BLOOD SPECIMENOrdering Facility: [facility] Address: [address] [place] [address] Performed By: #### 5 8410-2 ####[facility]ATORYCLIA [id number] [address] STATES OF [facility] Platelet mean volume (Bld) [Entitic vol] 10.1 fL Normal 9.0-12.7 [facility] Comment on above: Order Comment: Speci men Type: BLOOD SPECIMENOrdering Facility: [facility] Address: [address] [place] [address] Performed By: #### 5 8410-2 ####[facility]ATORYCLIA [id number] [place] [address] [place] Platelets (Bld) [#/Vol] 141 10*3/uL Low 150-400 [facility] Comment on above: Order Comment: Speci men Type: BLOOD SPECIMENOrdering Facility: [facility] Address: [address] [place] [address] Performed By: #### 5 8410-2 ####[facility]ATORYCLIA [id number] [place] [address] [place] RBC (Bld) [#/Vol] 4.06 10*6/uL Normal 3.90-5.20 [facility] Comment on above: Order Comment: Speci men Type: BLOOD SPECIMENOrdering Facility: [facility] Address: [address] [place] [address] Performed By: #### 5 8410-2 ####[facility]ORYCLIA [id number] [address] [place] WBC (Bld) [#/Vol] 7.07 10*3/uL Normal 3.70-11.00 [facility] Comment on above: Order Comment: Speci men Type: BLOOD SPECIMENOrdering Facility: [facility] Address: [address] [place] [address] Performed By: #### 5 8410-2 ####[facility]ATORYCLIA [id number] [address] [place] CONSULT PROGon 09-15-2022 CONSULT PROG Normal [facility] CONSULT PROG Normal [facility] CT BRAIN WO IVCONon 09-15-[address] BRAIN WO IVCON Normal [facility] ED NOTEon 09-15-2022 ED NOTE HNO ID: [id number] Author: Imani Feliz, RN Service: Emergency Medicine Author Type: Registered Nurse Type: ED Notes Filed: 09/15/2022 2:27 PM Note Text: Report called. Bed not ready Normal [facility] HIGH SENSITIVITY TROPONIN To n 09-15-2022 HIGH SENSITIVITY JACI 11 ng/L Normal <12 [facility] Comment on above: Order Comment: Speccy lujan Type: BLOOD SPECIMENOrdering Facility: [facility] Address: [address] [place] [address] Result Comment: When assessing risk for acute coronary syndromes: In patients undergoing blood draw greater than or equal to 2 hours from symptom onset, with history of very low to moderate risk and non-ischemic ECG, an initial hs-Troponin T less than 12 ng/L AND a 1 hour delta hs-Troponin T less than 3 ng/L should be considered very low risk for 30 day MACE. Performed By: #### H STNT ####[facility]ATORYCLIA [id number] [place] [address] [place] Magnesium SerPl-mCncon 09-15 Magnesium [Mass/Vol] 1.4 mg/dL Low 1.7-2.3 [facility] Comment on above: Order Comment: Cary lujan Type: BLOOD SPECIMENOrdering Facility: [facility] Address: [address] [place] [address] Performed By: #### 1 9123-9, 2777-1, 01425-8 ####[facility]ATORYCLIA [id number] [place] [address] [place] Phosphate SerPl-mCncon 09-15 Phosphate [Mass/Vol] 2.2 mg/dL Low 2.7-4.8 [facility] Comment on above: Order Comment: Cary lujan Type: BLOOD SPECIMENOrdering Facility: [facility] Address: [address] [place] [address] Performed By: #### 1 9123-9, 2777-1, 49002-7 ####[facility]ATORYCLIA [id number] [address] [place] TOX SCREEN ROUT URon 022 Amphetamines Confirm (U) [Mass/Vol] Negative Normal Negative [facility] Comment on above: Order Comment: Speci men Type: URINE SPECIMENOrdering Facility: [facility] Address: [address] [place] [address] Result Comment: Cuto ff threshold at 1000 ng/mL. Performed By: #### U TOX2 ####[facility]ATORYCLIA [id number] [address] [place] BARBITURATES, URINE Negative Normal Negative [facility] Comment on above: Order Comment: Speci men Type: URINE SPECIMENOrdering Facility: [facility] Address: [address] [place] [address] Result Comment: Cuto ff threshold at 200 ng/mL. Performed By: #### U TOX2 ####[facility]ATORYCLIA [id number] [place] [address] [place] BENZODIAZEPINES, UR Negative Normal Negative [facility] Comment on above: Order Comment: Speci men Type: URINE SPECIMENOrdering Facility: [facility] Address: [address] [place] [address] Result Comment: Cuto ff threshold at 200 ng/mL. Performed By: #### U TOX2 ####[facility]ATORYCLIA [id number] [place] [address] [place] CANNABINOIDS,URINE Negative Normal Negative [facility] Comment on above: Order Comment: Speci men Type: URINE SPECIMENOrdering Facility: [facility] Address: [address] [place] [address] Result Comment: Cuto ff threshold at 50 ng/mL. Performed By: #### U TOX2 ####[facility] LABORATORYCLIA [id number] [address] [place] Cocaine Ql (U) Negative Normal Negative [facility] Comment on above: Order Comment: Speci men Type: URINE SPECIMENOrdering Facility: [facility] Address: [address] [place] [address] Result Comment: Cuto ff threshold at 300 ng/mL. Performed By: #### U TOX2 ####[facility]ATORYCLIA [id number] [address] Ethanol (U) [Mass/Vol] 69 mg/dL High <11 [facility] Comment on above: Order Comment: Speci men Type: URINE SPECIMENOrdering Facility: [facility] Address: [address] [place] [address] Performed By: #### U TOX2 ####[facility]ATORYCLIA [id number] [address] Opiates Screen Ql (U) Negative Normal Negative [facility] Comment on above: Order Comment: Speci men Type: URINE SPECIMENOrdering Facility: [facility] Address: [address] [place] [address] Result Comment: Cuto ff threshold at 300 ng/mL. Performed By: #### U TOX2 ####[facility]ATORYCLIA [id number] [address] oxyCODONE cutoff Screen (U) [Mass/Vol] Negative Normal Negative [facility] Comment on above: Order Comment: Speci men Type: URINE SPECIMENOrdering Facility: [facility] Address: [address] [place] [address] Performed By: #### U TOX2 ####[facility]ATORYCLIA [id number] [address] Phencyclidine Ql (U) Negative Normal Negative [facility] Comment on above: Order Comment: Speci men Type: URINE SPECIMENOrdering Facility: [facility] Address: [address] [place] [address] Result Comment: Cuto ff threshold at 25 ng/mL. Performed By: #### U TOX2 ####[facility]ATORYCLIA [id number] [address] Urinalysis complete panel (U )on 09-15-2022 Bacteria LM.HPF (Urine sed) [#/Area] Moderate Abnormal None Seen [facility] Comment on above: Order Comment: Speci men Type: URINE SPECIMENOrdering Facility: [facility] Address: [address] [place] [address] Performed By: #### 2 4356-8 ####[facility] LABORATORYCLIA [id number] [address] [place] Bilirubin Ql (U) Negative Normal Negative [facility] Comment on above: Order Comment: Speci men Type: URINE SPECIMENOrdering Facility: [facility] Address: [address] [place] [address] Performed By: #### 2 4356-8 ####[facility]ATORYCLIA [id number] [address] [place] Clarity (Unsp spec) Clear Normal Clear [facility] Comment on above: Order Comment: Speci men Type: URINE SPECIMENOrdering Facility: [facility] Address: [address] [place] [address] Performed By: #### 2 4356-8 ####[facility]ATORYCLIA [id number] [place] [address] [place] [facility] Color (U) Yellow Normal yellow [facility] Comment on above: Order Comment: Speci men Type: URINE SPECIMENOrdering Facility: [facility] Address: [address] [place] [address] Performed By: #### 2 4356-8 ####[facility]ORATORYCLIA [id number] [address] [place] Glucose Test strip (U) [Mass/Vol] Negative Normal Negative [facility] Comment on above: Order Comment: Speci men Type: URINE SPECIMENOrdering Facility: [facility] Address: [address] [place] [address] Performed By: #### 2 4356-8 ####[facility]ORATORYCLIA [id number] [address] [place] Hemoglobin Ql (U) Negative Normal Negative [facility] Comment on above: Order Comment: Speci men Type: URINE SPECIMENOrdering Facility: [facility] Address: [address] [place] [address] Performed By: #### 2 4356-8 ####[facility]ORATORYCLIA [id number] [address] STATES [facility] Ketones Ql (U) 3+ Abnormal Negative [facility] Comment on above: Order Comment: Speci men Type: URINE SPECIMENOrdering Facility: [facility] Address: [address] [place] [address] Performed By: #### 2 4356-8 ####[facility] LABORATORYCLIA [id number] [address] Leukocyte esterase Test strip Ql (U) 25 Jennifer/mL Abnormal Negative [facility] Comment on above: Order Comment: Speci men Type: URINE SPECIMENOrdering Facility: [facility] Address: [address] [place] [address] Performed By: #### 2 4356-8 ####[facility]ORATORYCLIA [id number] [address] [place] Nitrite Ql (U) 2+ Abnormal Negative [facility] Comment on above: Order Comment: Speci men Type: URINE SPECIMENOrdering Facility: [facility] Address: [address] [place] [address] Performed By: #### 2 4356-8 ####[facility]ORATORYCLIA [id number] [address] [place] pH (U) 5.5 [pH] Normal 5.0-8.0 [facility] Comment on above: Order Comment: Speci men Type: URINE SPECIMENOrdering Facility: [facility] Address: [address] [place] [address] Performed By: #### 2 4356-8 ####[facility]ATORYCLIA [id number] [place] [address] [place] Protein (U) [Mass/Vol] Trace Abnormal Negative [facility] Comment on above: Order Comment: Speci men Type: URINE SPECIMENOrdering Facility: [facility] Address: [address] [place] [address] Performed By: #### 2 4356-8 ####[facility] LABORATORYCLIA [id number] [address] STATES [facility] RBC LM.HPF (Urine sed) [#/Area] 0-3 /HPF Normal 0-3 /HPF [facility] Comment on above: Order Comment: Speci men Type: URINE SPECIMENOrdering Facility: [facility] Address: [address] [place] [address] Performed By: #### 2 4356-8 ####[facility]ORATORYCLIA [id number] [address] Specific gravity (U) [Rel density] 1.016 Normal 1.005-1.030 [facility] Comment on above: Order Comment: Speci men Type: URINE SPECIMENOrdering Facility: [facility] Address: [address] [place] [address] Performed By: #### 2 4356-8 ####[facility]ORATORYCLIA [id number] [address] Urobilinogen Ql (U) Normal Normal Negative [facility] Comment on above: Order Comment: Speci men Type: URINE SPECIMENOrdering Facility: [facility] Address: [address] [place] [address] Performed By: #### 2 4356-8 ####[facility]ORATORYCLIA [id number] [address] STATES [facility] WBC LM.HPF (Urine sed) [#/Area] 0-5 /HPF Normal 0-5 /HPF [facility] Comment on above: Order Comment: Speci men Type: URINE SPECIMENOrdering Facility: [facility] Address: [address] [place] [address] Performed By: #### 2 4356-8 ####[facility]ATORYCLIA [id number] [address] OF [place] 25(OH)D3 [facility] 2021 25-hydroxyvitamin D3 [Mass/Vol] 38.8 ng/mL Normal >=30.0 [facility] Comment on above: Order Comment: Speci men Type: BLOOD SPECIMENOrdering Facility: [facility] Address: [place] [facility] [place] [address] Result Comment: Clas sification of 25 [place] Vitamin D status:Deficiency: <= 20.0 ng/ml.Insufficiency: 21.0-29.0 ng/ml.Sufficiency: >= 30.0 ng/ml. Performed By: #### 1 989-3 ####[facility]ORATORYCLIA [id number] [address] [place] ALLIED HEALTHon 09-14-2022 ALLIED HEALTH Normal [facility] ALLIED HEALTH Normal [facility] Absolute lymphocyte countOrd ered By: Dr. Arias on 09-14-2022 Lymphocytes Auto (Unsp spec) [#/Vol] 1.85 10*3/uL 0.83-4.51 [facility] Amylase SerPl-cCncon 022 Amylase [Catalytic activity/Vol] 57 U/L Normal 30-104 [facility] Comment on above: Order Comment: Speci men Type: BLOOD SPECIMENOrdering Facility: [facility] Address: [place] [address] Performed By: #### 3 040-3, 74791-8, 1798-8 ####[facility]ORATORYCLIA [id number] [address] OF [facility] Basophil percentageOrdered B y: Dr. Arias on 09-14-2022 Basophils/100 WBC (Bld) 1.5 % 0-1 [facility] Eosinophils/100 WBC (Bld) 1.5 % 0-5 [facility] Neutrophils (Bld) [#/Vol] 3.2 10*3/uL 2.0-7.7 [facility] Neutrophils/100 WBC (Bld) 55.5 % 47-70 [facility] WBC (Bld) [#/Vol] 5.9 10*3/uL 4.4-11.0 [facility] Bilirubin [Mass/Vol] 0.70 mg/dL 0.20-1.00 [facility] Comment on above: For patients on eltr ombopag therapy, use of Dimension [place] TBIL is not recommended. Chloride [Moles/Vol] 107 mmol/L 98-107 [facility] Glucose [Mass/Vol] 81 mg/dL 74-106 [facility] Potassium [Moles/Vol] 4.7 mmol/L 3.5-5.1 [facility] Comment on above: Moderate Hemolysis, Result may be falsely increased. Protein [Mass/Vol] 6.8 g/dL 6.4-8.2 [facility] Sodium [Moles/Vol] 138 mmol/L 136-145 [facility] Blood erythrocytes count (nu mber/volume)Ordered By: Dr. Arias on 09-14-2022 RBC (Bld) [#/Vol] 4.33 10*6/uL 4.2-5.4 [facility] Blood hemoglobin measurement (mass/volume)Ordered By: Dr. Arias on 09-14-2022 Hemoglobin (Bld) [Mass/Vol] 15.1 g/dL 12.0-15.0 [facility] Blood lymphocytes/100 leukoc ytesOrdered By: Dr. Arisa on 09-14-2022 Lymphocytes/100 WBC (Bld) 31.6 % 19-41 [facility] Blood monocytes/100 leukocyt esOrdered By: Dr. Arias on 09-14-2022 Monocytes/100 WBC (Bld) 9.7 % 0-10 [facility] Blood platelet mean volumeOr dered By: Dr. Arias on 09-14-2022 Platelet mean volume (Bld) [Entitic vol] 9.6 fL 6.2-12.0 [facility] CBC panel Auto (Bld)on 09-14 Erythrocyte distribution width (RBC) [Ratio] 15.4 % High 11.5-15.0 [facility] Comment on above: Order Comment: Speci men Type: BLOOD SPECIMENOrdering Facility: [facility] Address: [address] [place] [address] Performed By: #### 5 8410-2 ####[facility]ORATORYCLIA [id number] [address] STATES OF [facility] Hematocrit (Bld) [Volume fraction] 44.1 % Normal 36.0-46.0 [facility] Comment on above: Order Comment: Speci men Type: BLOOD SPECIMENOrdering Facility: [facility] Address: [address] [place] [address] Performed By: #### 5 8410-2 ####[facility]ORATORYCLIA [id number] [address] OF [facility] Hemoglobin (Bld) [Mass/Vol] 15.0 g/dL Normal 11.5-15.5 [facility] Comment on above: Order Comment: Speci men Type: BLOOD SPECIMENOrdering Facility: [facility] Address: [address] [place] [address] Performed By: #### 5 8410-2 ####[facility]ORATORYCLIA [id number] [address] MCH (RBC) [Entitic mass] 33.7 pg Normal 26.0-34.0 [facility] Comment on above: Order Comment: Speci men Type: BLOOD SPECIMENOrdering Facility: [facility] Address: [address] [place] [address] Performed By: #### 5 8410-2 ####[facility]ORATORYCLIA [id number] [address] [place] MCHC (RBC) [Mass/Vol] 34.0 g/dL Normal 30.5-36.0 [facility] Comment on above: Order Comment: Speci men Type: BLOOD SPECIMENOrdering Facility: [facility] Address: [address] [place] [address] Performed By: #### 5 8410-2 ####[facility]ATORYCLIA [id number] [address] MCV (RBC) [Entitic vol] 99.1 fL Normal 80.0-100.0 [facility] Comment on above: Order Comment: Speci men Type: BLOOD SPECIMENOrdering Facility: [facility] Address: [address] [place] [address] Performed By: #### 5 8410-2 ####[facility]ORATORYCLIA [id number] [place] [address] [place] Nucleated RBC (Bld) [#/Vol] 10*3/uL Normal <0.01 [facility] Comment on above: Order Comment: Speci men Type: BLOOD SPECIMENOrdering Facility: [facility] Address: [address] [place] [address] Performed By: #### 5 8410-2 ####[facility]ORATORYCLIA [id number] [place] [address] [place] Platelet mean volume (Bld) [Entitic vol] 9.8 fL Normal 9.0-12.7 [facility] Comment on above: Order Comment: Speci men Type: BLOOD SPECIMENOrdering Facility: [facility] Address: [address] [place] [address] Performed By: #### 5 8410-2 ####[facility]ORATORYCLIA [id number] [address] [place] Platelets (Bld) [#/Vol] 160 10*3/uL Normal 150-400 [facility] Comment on above: Order Comment: Speci men Type: BLOOD SPECIMENOrdering Facility: [facility] Address: [address] [place] [address] Performed By: #### 5 8410-2 ####[facility]ORATORYCLIA [id number] [place] [address] [place] RBC (Bld) [#/Vol] 4.45 10*6/uL Normal 3.90-5.20 [facility] Comment on above: Order Comment: Speci men Type: BLOOD SPECIMENOrdering Facility: [facility] Address: [address] [place] [address] Performed By: #### 5 8410-2 ####[facility]ORATORYCLIA [id number] [place] [address] [place] WBC (Bld) [#/Vol] 5.14 10*3/uL Normal 3.70-11.00 [facility] Comment on above: Order Comment: Speci men Type: BLOOD SPECIMENOrdering Facility: [facility] Address: [address] [place] [address] Performed By: #### 5 8410-2 ####[facility]ORATORYCLIA [id number] [address] [place] CONSULTon 09-14-2022 CONSULT Normal [facility] CT BRAIN WO IVCONon 09-14-20 CT BRAIN WO IVCON Normal [facility] Comprehensive metabolic 2000 panelon 09-14-2022 Albumin [Mass/Vol] 3.2 g/dL Low 3.9-4.9 [facility] Comment on above: Order Comment: Speci men Type: BLOOD SPECIMENOrdering Facility: [facility] Address: [address] [place] [address] Performed By: #### 3 040-3, 95585-6, 1798-05 ####[facility]ATORYCLIA [id number] [address] [place] ALP [Catalytic activity/Vol] 67 U/L Normal 34-123 [facility] Comment on above: Order Comment: Speci men Type: BLOOD SPECIMENOrdering Facility: [facility] Address: [address] [place] [address] Performed By: #### 3 040-3, 60050-2, 1798-05 ####[facility]ATORYCLIA [id number] [address] [place] ALT With P-5'-P [Catalytic activity/Vol] 48 U/L High 7-38 [facility] Comment on above: Order Comment: Speci men Type: BLOOD SPECIMENOrdering Facility: [facility] Address: [address] [place] [address] Performed By: #### 3 040-3, 12491-8, 1798-05 ####[facility]ATORYCLIA [id number] [address] [place] Anion gap [Moles/Vol] 17 mmol/L Normal 9-18 [facility] Comment on above: Order Comment: Speci men Type: BLOOD SPECIMENOrdering Facility: [facility] Address: [address] [place] [address] Performed By: #### 3 040-3, , 1798-05 ####[facility]ATORYCLIA [id number] [place] [address] [place] AST With P-5'-P [Catalytic activity/Vol] 122 U/L High 13-35 [facility] Comment on above: Order Comment: Speci men Type: BLOOD SPECIMENOrdering Facility: [facility] Address: [address] [place] [address] Performed By: #### 3 040-3, , 1798-05 ####[facility]ATORYCLIA [id number] [address] [place] Bilirubin [Mass/Vol] 0.4 mg/dL Normal 0.2-1.3 [facility] Comment on above: Order Comment: Speci men Type: BLOOD SPECIMENOrdering Facility: [facility] Address: [address] [place] [address] Performed By: #### 3 040-3, , 1798-05 ####[facility]ATORYCLIA [id number] [address] STATES OF [facility] Calcium [Mass/Vol] 7.5 mg/dL Low 8.5-10.2 [facility] Comment on above: Order Comment: Speci men Type: BLOOD SPECIMENOrdering Facility: [facility] Address: [address] [place] [address] Performed By: #### 3 040-3, , 1798-05 ####[facility]ATORYCLIA [id number] [place] [address] [place] Chloride [Moles/Vol] 103 mmol/L Normal 97-105 [facility] Comment on above: Order Comment: Speci men Type: BLOOD SPECIMENOrdering Facility: [facility] Address: [address] [place] [address] Performed By: #### 3 040-3, , 1798-05 ####[facility]ORATORYCLIA [id number] [place] [id number] [place] CO2 [Moles/Vol] 21 mmol/L Low 22-30 [facility] Comment on above: Order Comment: Speci men Type: BLOOD SPECIMENOrdering Facility: [facility] Address: [address] [place] [address] Performed By: #### 3 040-3, , 1798-05 ####[facility]ATORYCLIA [id number] [place] [id number] [place] Creatinine [Mass/Vol] 0.55 mg/dL Low 0.58-0.96 [facility] Comment on above: Order Comment: Speci men Type: BLOOD SPECIMENOrdering Facility: [facility] Address: [address] [place] [address] Performed By: #### 3 040-3, , 1798-05 ####[facility]ORATORYCLIA [id number] [address] [place] ESTIMATED GLOMERULAR FILTRATION RATE 98 mL/min/1.73m??? Normal >=60 [facility] Comment on above: Order Comment: Speci men Type: BLOOD SPECIMENOrdering Facility: [facility] Address: [address] [place] [address] Result Comment: Mariely mated Glomerular Filtration Rate (eGFR) is calculated using the 2020 CKD-EPI creatinine equation. This equation utilizes serum creatinine, sex, and age as parameters. The creatinine assay has traceable calibration to isotope dilution-mass spectrometry. Refer to KDIGO guidelines for clinical interpretation. In patients with unstable renal function, e.g. those with acute kidney injury, the eGFR may not accurately reflect actual GFR. Performed By: #### 3 040-3, 53317-1, 1798-05 ####[facility]ATORYCLIA [id number] [place] [id number] [place] Glucose [Mass/Vol] 89 mg/dL Normal 74-99 [facility] Comment on above: Order Comment: Cary lujan Type: BLOOD SPECIMENOrdering Facility: [facility] Address: [address] [place] [address] Result Comment: The [place] [employer] (ADA) provides guidance for cutoff values for fasting glucose and random glucose. The ADA defines fasting as no caloric intake for at least 8 hours. Fasting plasma glucose results between 100 to 125 mg/dL indicate increased risk for diabetes (prediabetes).Fasting plasma glucose results greater than or equal to 126 mg/dL meet the criteria for diagnosis of diabetes. In the absence of unequivocal hyperglycemia, results should be confirmed by repeat testing. In a patient with classic symptoms of hyperglycemia or hyperglycemic crisis, random plasma glucose results greater than or equal to 200 mg/dL meet the criteria for diagnosis of diabetes.Reference: Standards of Medical Care in Diabetes 2016, [place] [employer]. Diabetes Care. 2016.39(Suppl 1). Performed By: #### 3 040-3, , 1798-05 ####[facility]ATORYCLIA [id number] [place] [address] [place] Potassium [Moles/Vol] 3.6 mmol/L Low 3.7-5.1 [facility] Comment on above: Order Comment: Cary lujan Type: BLOOD SPECIMENOrdering Facility: [facility] Address: [address] [place] [address] Performed By: #### 3 040-3, , 1798-05 ####[facility]ATORYCLIA [id number] [place] [address] [place] Protein [Mass/Vol] 5.9 g/dL Low 6.3-8.0 [facility] Comment on above: Order Comment: Cary lujan Type: BLOOD SPECIMENOrdering Facility: [facility] Address: [address] [place] [address] Performed By: #### 3 040-3, , 1798-05 ####[facility]ATORYCLIA [id number] [place] [address] [place] Sodium [Moles/Vol] 141 mmol/L Normal 136-144 [facility] Comment on above: Order Comment: Speci men Type: BLOOD SPECIMENOrdering Facility: [facility] Address: [place] [address] Performed By: #### 3 040-3, , 1798-05 ####[facility]ORATORYCLIA [id number] [place], [place] [id number] [place] [address] STATES OF [facility] Urea nitrogen [Mass/Vol] 12 mg/dL Normal 7-21 [facility] Comment on above: Order Comment: Speci men Type: BLOOD SPECIMENOrdering Facility: [facility] Address: [place] [address] Performed By: #### 3 040-3, , 1798-05 ####[facility]ORATORYCLIA [id number] [place] [address] [place] Determination of erythrocyte mean corpuscular volume (MCV)Ordered By: Dr. Arias on 09-14-2022 MCV (RBC) [Entitic vol] 99.5 fL 81-99 [facility] ECG COMPLETEon 09-14-2022 ECG COMPLETE Normal [facility] ED NOTEon 09-14-2022 ED NOTE HNO ID: [id number] Author: Marta Alvarado RN Service: ? Author Type: Registered Nurse Type: ED Notes Filed: 09/14/2022 8:24 PM Note Text: Neal sequeira- asked to be listed as pt emergency contact [phone] [facility] ED NOTE HNO ID: [id number] Author: Marta Alvarado RN Service: Emergency Medicine Author Type: Registered Nurse Type: ED Notes Filed: 09/14/2022 8:15 PM Note Text: Pt unable to provide urine sample at this time. Normal [facility] ED NOTE HNO ID: [id number] Author: Ap Paredes RN Service: ? Author Type: Registered Nurse Type: ED Notes Filed: 09/14/2022 5:31 PM Note Text: Bed: 06-ED Expected date: Expected time: Means of arrival: Comments: trauma Normal [facility] ED NOTE HNO ID: [id number] Author: Ap Paredes, RN Service: Emergency Medicine Author Type: Registered Nurse Type: ED Notes Filed: 09/14/2022 5:24 PM Note Text: Blood bank and OR called and notified Normal [facility] ED NOTE HNO ID: [id number] Author: Kate Carrington Service: ? Author Type: ? Type: ED Notes Filed: 09/14/2022 5:07 PM Note Text: Bed: [address] [place] [address] Expected date: 09/14/22 Expected time: Means of arrival: [facility] Comments: Normal [facility] ED PROV NOTEon 09-14-2022 ED PROV NOTE Normal [facility] Ethanol SerPl-mCncon 022 Ethanol [Mass/Vol] 257 mg/dL High <11 [facility] Comment on above: Order Comment: Cary lujan Type: BLOOD SPECIMENOrdering Facility: [facility] Address: [address] [place] [address] Result Comment: Valu es > 80 mg/dL may indicate intoxication Performed By: #### 5 643-2 ####[facility] LABORATORYCLIA [id number] [address] HIGH SENSITIVITY TROPONIN To n 09-14-2022 HIGH SENSITIVITY JACI 16 ng/L High <12 [facility] Comment on above: Order Comment: Speci men Type: BLOOD SPECIMENOrdering Facility: [facility] Address: [address] [place] [address] Result Comment: When assessing risk for acute coronary syndromes: In patients undergoing blood draw greater than or equal to 2 hours from symptom onset, with history of very low to moderate risk and non-ischemic ECG, an initial hs-Troponin T less than 12 ng/L AND a 1 hour delta hs-Troponin T less than 3 ng/L should be considered very low risk for 30 day MACE. Performed By: #### H STNT ####[facility] LABORATORYCLIA [id number] [address] OF [facility] HISTORY PHYSICALon HISTORY PHYSICAL Normal [facility] HISTORY PHYSICAL Normal [facility] Hematocrit Auto (Bld) [Volum e fraction]Ordered By: Dr. Arias on 09-14-2022 Hematocrit (Bld) [Volume fraction] 43.1 % 37-47 [facility] INR in Blood by Coagulation assayOrdered By: Dr. Arias on 09-14-2022 INR Coag (Bld) [Relative time] 1.0 {INR} [facility] Laboratory - Chemistry and C hemistry - challengeOrdered By: Dr. Arias on 09-14-2022 ALP [Catalytic activity/Vol] 67 U/L 45-117 [facility] ALT [Catalytic activity/Vol] 73 U/L 13-56 [facility] CO2 [Moles/Vol] 22.0 mmol/L 21.0-32.0 [facility] Globulin (S) [Mass/Vol] 3.8 g/dL 2.2-4.2 [facility] Urea nitrogen/Creatinine [Mass ratio] 21.2 mg/mg 10-20 [facility] Laboratory - CoagulationOrde red By: Dr. Arias on 09-14-2022 aPTT Coag (Bld) [Time] 27.4 s 24.1-36.2 [facility] PT Coag (PPP) [Time] 12.9 s 11.7-14.9 [facility] Laboratory - Hematology and Cell countsOrdered By: Dr. Arias on 09-14-2022 Erythrocyte distribution width (RBC) [Entitic vol] 57.0 fL 35.1-43.9 [facility] Erythrocyte distribution width (RBC) [Ratio] 15.5 % 11.6-14.6 [facility] Immature granulocytes/100 WBC (Bld) 0.200 % 0.0-0.9 [facility] Comment on above: IG% - Immature Granu locytes (promyelocytes, myelocytes and metamyelocytes) > 1% indicates that a LEFT SHIFT is Present. MCH (RBC) [Entitic mass] 34.9 pg 27.0-32.0 [facility] Nucleated RBC/100 WBC (Bld) [Ratio] 0 % 0-5 [facility] Lipase SerPl-cCncon 09-14-20 22 Lipase [Catalytic activity/Vol] 55 U/L Normal 16-61 [facility] Comment on above: Order Comment: Speci men Type: BLOOD SPECIMENOrdering Facility: [facility] Address: [address] [place], [place] [id number] Performed By: #### 3 040-3, 16510-7, 1798-8 ####[facility] LABORATORYCLIA [id number] [place] [address] [place] MCHC Auto (RBC) [Mass/Vol]Or dered By: Dr. Arias on 09-14-2022 MCHC (RBC) [Mass/Vol] 35.0 g/dL 32-36 [facility] No Panel InformationOrdered By: Dr. Arias on 09-14-2022 Estimated Creatinine Clearance Calc 42.68 ml/min [facility] Estimated GFR (MDRD) Amer 114 mL/min >60 [facility] Comment on above: GFR Calc Estimated GFR (MDRD) Non-Af Amer 94 mL/min >60 [facility] Comment on above: Non- GFR Calc Ethyl Alcohol Level 340.0 mg/dL [facility] Comment on above: Critical Result(s) C alled at: 15:13:33 09/14/2022 by: Michael Martinez to Denita TRAVIS (ER). Results read back by same.The serum:whole blood ethanol ratio is approximately 1.14and varies slightly with hematocrit. Medical Alcohol reference interval and critical value innon-tolerant individuals; 50 - 100 Impairment 100 Intoxication 100 - 250 Severe Poisoning 250 - 400 Deep/possible fatal coma PT panel Coag (PPP)on 2021 INR Coag (PPP) [Relative time] {INR} Low 0.9-1.3 [facility] Comment on above: Order Comment: Cary lujan Type: BLOOD SPECIMENOrdering Facility: [facility] Address: [address] [place], [place] [address] [address] Result Comment: Adele min K Antagonist (VKA) Therapeutic Range: INR 2 to 3 (Target INR of 2.5)Note: For patients treated with VKA drugs, such as warfarin, the [employer] 2012 Guideline recommends a therapeutic INR range of 2 to 3 (target INR of 2.5). This recommendation includes high-risk patients with antiphospholipid syndrome with previous arterial or venous thromboembolism, current-generation mechanical or bioprosthetic aortic heart valve replacement.Note: Patients with mechanical aortic valve replacement and additional risk factors for thromboembolic events (atrial fibrillation, previous thromboembolism, LV dysfunction, hypercoagulable conditions) or an older generation mechanical AVR (i.e., ball in-Cage) or any mechanical MVR should have a INR therapeutic range of 2.5 to 3.5 (target INR of 3).Freddy GH, et al. Chest 2012, 141:7S-47SNishcristo RA, et al. [facility] 2017, 70: 252-289 Performed By: #### 1 4979-9, 54819-5 ####[facility] LABORATORYCLIA [id number] [address] [place] PT Coag (PPP) [Time] 9.8 s Normal 9.7-13.0 [facility] Comment on above: Order Comment: Speci men Type: BLOOD SPECIMENOrdering Facility: [facility] Address: [address] [place] [address] Result Comment: Samp le checked for clot Performed By: #### 1 4979-9, 48012-7 ####[facility] LABORATORYCLIA [id number] [address] [place] Platelets bldOrdered By: Dr. Arias on 09-14-2022 Platelets (Bld) [#/Vol] 146 10*3/uL 150-450 [facility] SARS-CoV-2 RNA Resp Ql CY+p robeon 09-14-2022 SARS-CoV-2 (COVID-19) RNA CY+probe Ql (Resp) COVID 19 RESULT: SARS-CoV-2 (Agent of COVID-19) Not Detected by RT-PCR or equivalent method. This test has been authorized by FDA under an Emergency Use Authorization (EUA). Normal [facility] Comment on above: Performed By: #### 9 4500-6 ####[facility] LABORATORYCLIA [id number] [address] [place] STAPH AUREUS PCRon 2 S. aureus and MRSA panel CY+probe (Nose) Abnormal Negative [facility] Comment on above: Order Comment: Speci men Type: SWAB OF INTERNAL NOSEOrdering Facility: [facility] Address: [place] [id number] Result Comment: Posi tive for Staphylococcus aureus by PCR.Positive for MRSA by PCR Performed By: #### S APCR ####[facility] LABORATORYCLIA [id number] [place] [address] [place] Serum or plasma albumin cony urement (mass/volume)Ordered By: Dr. Arias on 09-14-2022 Albumin [Mass/Vol] 3.0 g/dL 3.2-5.0 [facility] Serum or plasma albumin/glob ulin mass ratioOrdered By: Dr. Arias on 09-14-2022 Albumin/Globulin [Mass ratio] 0.8 {ratio} 0.9-2.4 [facility] Serum or plasma calcium cony urement (mass/volume)Ordered By: Dr. Arias on 09-14-2022 Calcium [Mass/Vol] 8.3 mg/dL 8.5-10.1 [facility] Serum or plasma creatinine m easurement (mass/volume)Ordered By: Dr. Arias on 09-14-2022 Creatinine [Mass/Vol] 0.66 mg/dL 0.55-1.02 [facility] Comment on above: The validity of the calculated GFR & GFRAA in patients over 70 years has not been determined. Clinical correlation is essential. Serum or plasma urea nitroge n measurement (mass/volume)Ordered By: Dr. Arias on 09-14-2022 Urea nitrogen [Mass/Vol] 14 mg/dL 7-18 [facility] TYPE + SCREENon 09-14-2022 ABO A Normal [facility] Comment on above: Order Comment: Speci men Type: BLOOD SPECIMENOrdering Facility: [facility] Address: [place] [phone] Performed By: #### T SCR ####[facility] BANKCLIA [id number] [place] [address] [place] HISTORICAL AB SCR STATUS Negative Normal [facility] Comment on above: Order Comment: Speci men Type: BLOOD SPECIMENOrdering Facility: [facility] Address: [address] [place] [phone] Performed By: #### T SCR ####[facility] BLO[facility] BANKCLIA [id number] [place] [address] [place] Rh Nom (Bld) Positive Normal [facility] Comment on above: Order Comment: Speci men Type: BLOOD SPECIMENOrdering Facility: [facility] Address: [address] [place] [address] Performed By: #### T SCR ####[facility] BLOOD BANKCLIA [id number] [place] [id number] [place] TYPE AND SCREEN EXPIRATION 09/17/2022 23:59 Normal [facility] Comment on above: Order Comment: Speci men Type: BLOOD SPECIMENOrdering Facility: [facility] Address: [address] [place] [address] Performed By: #### T SCR ####[facility] BLOOD BANKCLIA [id number] [place] [id number] [place] Thin prep Papanicolaou smear with manual screeningOrdered By: Dr. Arias on 09-14-2022 Thin prep Papanicolaou smear with manual screening 153 U/L 15-37 [facility] Comment on above: Moderate Hemolysis, Result may be falsely increased. Thin prep Papanicolaou smear with manual screening 9 5-15 [facility] XR CHEST 1V FRONTALon 2021 XR CHEST 1V FRONTAL Normal [facility] XR PELVIS 1V APon 09-14-2022 XR PELVIS 1V AP Normal [facility] XR SHLDR >/=3V AP/RIGOBERTO AP/OTH R LTon 09-14-2022 XR SHLDR >/=3V AP/RIGOBERTO AP/OTHR LT Normal [facility] aPTT PPPon 09-14-2022 aPTT Coag (PPP) [Time] 24.1 s Normal 23.0-32.4 [facility] Comment on above: Order Comment: Speci men Type: BLOOD SPECIMENOrdering Facility: [facility] Address: [address] [place] [phone] Result Comment: Samp le checked for clot Performed By: #### 1 4979-9, 27189-1 ####[facility] LABORATORYCLIA [id number] [place] [address] [place] Absolute lymphocyte counton 04-27-2022 Lymphocytes Auto (Unsp spec) [#/Vol] 1.91 10*3/uL 0.83-4.51 [facility] Work Phone: Basophil percentageon 2021 Basophil percentage 0 SEEN /hpf 0-5 [facility] Work Phone: Basophils/100 WBC (Bld) 1.4 % 0-1 [facility] Work Phone: Bilirubin [Mass/Vol] 0.30 mg/dL 0.20-1.00 [facility] Work Phone: Comment on above: For patients on eltr ombopag therapy, use of Dimension [place] TBIL is not recommended. Chloride [Moles/Vol] 100 mmol/L 98-107 [facility] Work Phone: Eosinophils/100 WBC (Bld) 0.6 % 0-5 [facility] Work Phone: Glucose [Mass/Vol] 142 mg/dL 74-106 [facility] Work Phone: Comment on above: Fasting Glucose resu lt greater than or equal to 126 mg/dL suggests DIABETES MELLITUS per A.D.A. criteria. Lactate [Moles/Vol] 6.5 mmol/L 0.4-2.0 [facility] Work Phone: Comment on above: Critical Result(s) C alled at: 10:43:22 04/27/2022 by: Diane Mukherjee. Results read back by same. Neutrophils (Bld) [#/Vol] 4.8 10*3/uL 2.0-7.7 [facility] Work Phone: Neutrophils/100 WBC (Bld) 60.5 % 47-70 [facility] Work Phone: Potassium [Moles/Vol] 3.6 mmol/L 3.5-5.1 [place] [facility] Work Phone: [phone] Protein [Mass/Vol] 7.6 g/dL 6.4-8.2 [place] [facility] Work Phone: [phone] Sodium [Moles/Vol] 140 mmol/L 136-145 [place] [facility] Work Phone: [phone] WBC (Bld) [#/Vol] 7.9 10*3/uL 4.4-11.0 [place] [facility] Work Phone: [phone] Bilirubin Test strip Ql (U)o n 04-27-2022 Bilirubin Ql (U) Negative Negative [facility] Work Phone: Blood erythrocytes count (nu mber/volume)on 04-27-2022 RBC (Bld) [#/Vol] 4.46 10*6/uL 4.2-5.4 [place] [facility] Work Phone: Blood hemoglobin measurement (mass/volume)on 04-27-2022 Hemoglobin (Bld) [Mass/Vol] 14.5 g/dL 12.0-15.0 [facility] Work Phone: Blood lymphocytes/100 leukoc yteson 04-27-2022 Lymphocytes/100 WBC (Bld) 24.1 % 19-41 [facility] Work Phone: [phone] Blood monocytes/100 leukocyt eson 04-27-2022 Monocytes/100 WBC (Bld) 12.6 % 0-10 [facility] Work Phone: Blood platelet mean volumeon 04-27-2022 Platelet mean volume (Bld) [Entitic vol] 10.0 fL 6.2-12.0 [facility] Work Phone: Determination of erythrocyte mean corpuscular volume (MCV)on 04-27-2022 MCV (RBC) [Entitic vol] 98.7 fL 81-99 [facility] Work Phone: [phone] Hematocrit Auto (Bld) [Volum e fraction]on 04-27-2022 Hematocrit (Bld) [Volume fraction] 44.0 % 37-47 [facility] Work Phone: [phone] Ketones Test strip Ql (U)on 04-27-2022 Ketones Ql (U) 15 mg/dl Negative [facility] Work Phone: [phone] Laboratory - Chemistry and C hemistry - challengeon 04-27-2022 ALP [Catalytic activity/Vol] 75 U/L 45-117 [facility] Work Phone: [phone] ALT [Catalytic activity/Vol] 44 U/L 13-56 [facility] Work Phone: [phone] CO2 [Moles/Vol] 20.0 mmol/L 21.0-32.0 [facility] Work Phone: [phone] Globulin (S) [Mass/Vol] 3.9 g/dL 2.2-4.2 [facility] Work Phone: [phone] Urea nitrogen/Creatinine [Mass ratio] 29.7 mg/mg 10-20 [facility] Work Phone: [phone] Laboratory - Drug toxicology on 04-27-2022 Amphetamines Ql (U) Negative <1000 ng/mL [facility] Work Phone: [phone] Benzodiazepines Ql (U) Negative < 200 ng/mL [facility] Work Phone: [phone] Cannabinoids Screen Ql (U) Negative < 50 ng/mL [facility] Work Phone: [phone] Cocaine Ql (U) Negative < 300 ng/mL [facility] Work Phone: [phone] Opiates Ql (U) Negative < 300 ng/mL [facility] Work Phone: [phone] Laboratory - Hematology and Cell countson 04-27-2022 Erythrocyte distribution width (RBC) [Entitic vol] 55.6 fL 35.1-43.9 [facility] Work Phone: [phone] Erythrocyte distribution width (RBC) [Ratio] 15.3 % 11.6-14.6 [facility] Work Phone: [phone] Immature granulocytes/100 WBC (Bld) 0.800 % 0.0-0.9 [facility] Work Phone: Comment on above: IG% - Immature Granu locytes (promyelocytes, myelocytes and metamyelocytes) > 1% indicates that a LEFT SHIFT is Present. MCH (RBC) [Entitic mass] 32.5 pg 27.0-32.0 [facility] Work Phone: [phone] Nucleated RBC/100 WBC (Bld) [Ratio] 0 % 0-5 [facility] Work Phone: [phone] MCHC Auto (RBC) [Mass/Vol]on 04-27-2022 MCHC (RBC) [Mass/Vol] 33.0 g/dL 32-36 [facility] Work Phone: [phone] Mucus LM Ql (Urine sed)on Mucus Ql (Urine sed) 0 SEEN /hpf [facility] Work Phone: [phone] Nitrite Test strip Ql (U)on 04-27-2022 Nitrite Ql (U) Negative Negative [facility] Work Phone: [phone] Panel Informationon 04-27 MDMA (Ecstasy) Screen Negative < 500 ng/mL [facility] Work Phone: [phone] Urine Barbiturates Screen Negative < 200 ng/mL [facility] Work Phone: [phone] Urine Drug Screen Comment [facility] Work Phone: Comment on above: CONFIRMATORY TESTING FOR ALL POSITIVE URINE DRUG SCREENRESULTS WILL ONLY BE SENT OUT UPON PHYSICIAN ORDER. VISTA Urine Drug Screen methods provide only preliminaryanalytical test results. A more specific alternate chemicalmethod must be used in order to obtain a confirmedanalytical result. Gas chromatography/mass spectrometery(GC/MS) is the preferred confirmatory method. Clinicalconsideration and professional judgement should be appliedto any drug of abuse test result, particularly whenpreliminary positive results are used. URINE TCA TESTING MUST BE ORDERED SEPARATELY. USE TESTMNEMONIC: [facility] Urine Methadone Screen Negative < 300 ng/mL [facility] Work Phone: [phone] Estimated Creatinine Clearance Calc 50.91 ml/min [facility] Work Phone: Estimated GFR (MDRD) Amer 105 mL/min >60 [facility] Work Phone: Comment on above: GFR Calc Estimated GFR (MDRD) Non-Af Amer 87 mL/min >60 [facility] Work Phone: Comment on above: Non- GFR Calc Ethyl Alcohol Level 11.0 mg/dL [facility] Work Phone: Comment on above: The serum:whole bloo d ethanol ratio is approximately 1.14and varies slightly with hematocrit. Medical Alcohol reference interval and critical value innon-tolerant individuals; 50 - 100 Impairment 100 Intoxication 100 - 250 Severe Poisoning 250 - 400 Deep/possible fatal coma Troponin I High Sensitivity 7 pg/mL 3.0-54.0 [facility] Work Phone: Comment on above: Please Note: New Maureen t Units and Gender Specific Reference Ranges. For more information see Policy Stat Procedure [place] High Sensitivity Troponin (TNIH) and attachments. Platelets bldon 04-27-2022 Platelets (Bld) [#/Vol] 164 10*3/uL 150-450 [facility] Work Phone: [phone] Protein Test strip Ql (U)on 04-27-2022 Protein Ql (U) 30 mg/dl Negative [facility] Work Phone: [phone] Serum or plasma albumin cony urement (mass/volume)on 04-27-2022 Albumin [Mass/Vol] 3.7 g/dL 3.2-5.0 [facility] Work Phone: [phone] Serum or plasma albumin/glob ulin mass ratioon 04-27-2022 Albumin/Globulin [Mass ratio] 0.9 {ratio} 0.9-2.4 [facility] Work Phone: [phone] Serum or plasma calcium cony urement (mass/volume)on 04-27-2022 Calcium [Mass/Vol] 10.6 mg/dL 8.5-10.1 [facility] Work Phone: [phone] Serum or plasma creatinine m easurement (mass/volume)on 04-27-2022 Creatinine [Mass/Vol] 0.71 mg/dL 0.55-1.02 [facility] Work Phone: Comment on above: The validity of the calculated GFR & GFRAA in patients over 70 years has not been determined. Clinical correlation is essential. Serum or plasma prolactin me asurement (mass/volume)on 04-27-2022 Prolactin [Mass/Vol] 159.0 ng/mL [facility] Work Phone: Comment on above: NORMAL REFERENCE RAN GES FEMALE NON- 2.2 - 30.3 ng/mL 8.1 - 347.6 ng/mL POST-MENOPAUSAL 0.7 - 31.5 ng/mL MALE 2.5 - 17.4 ng/mL Serum or plasma urea nitroge n measurement (mass/volume)on 04-27-2022 Urea nitrogen [Mass/Vol] 21 mg/dL 7-18 [facility] Work Phone: [phone] Squamous epithelial cells de tection in urine sediment by light microscopyon 04-27-2022 Epithelial cells.squamous LM Ql (Urine sed) 0-5 SEEN /hpf 5-10 [facility] Work Phone: Thin prep Papanicolaou smear with manual screeningon 04-27-2022 Thin prep Papanicolaou smear with manual screening 62 U/L 15-37 [facility] Work Phone: [phone] Thin prep Papanicolaou smear with manual screening 20 5-15 [facility] Work Phone: Urine blood detectionon 04-13 RBC Ql (U) 10 /ul Negative [facility] Work Phone: [phone] RBC Ql (U) 0-5 SEEN /hpf 0-5 [facility] Work Phone: [phone] Urine clarityon 04-27-2022 Clarity (U) Clear Clear [facility] Work Phone: [phone] Urine color determinationon 04-27-2022 Color (U) Yellow Yellow [facility] Work Phone: Urine glucose detectionon Glucose Ql (U) Normal mg/dl Normal [facility] Work Phone: Urine leukocyte esterase det ection by dipstickon 04-27-2022 Leukocyte esterase Test strip Ql (U) Negative Negative [facility] Work Phone: Urine pHon 04-27-2022 pH (U) 6.5 [pH] 5.0 - 8.0 [facility] Work Phone: Urine phencyclidine (PCP) de tectionon 04-27-2022 Phencyclidine Ql (U) Negative < 25 ng/mL [facility] Work Phone: Urine sediment bacteria coun t by microscopy (number/high power field)on 04-27-2022 Bacteria LM.HPF (Urine sed) [#/Area] 0 /[HPF] None Seen [facility] Work Phone: Urine specific gravity measu rementon 04-27-2022 Specific gravity (U) [Rel density] 1.020 1.002-1.030 [facility] Work Phone: Urobilinogen Auto test strip Ql (U)on 04-27-2022 Urobilinogen Ql (U) Normal mg/dl Normal [facility] Work Phone: Absolute lymphocyte counton 02-06-2022 Lymphocytes Auto (Unsp spec) [#/Vol] 1.24 10*3/uL 0.83-4.51 [facility] Work Phone: Amorphous sediment detection in urine sediment by light microscopyon 02-06-2022 Amorphous sediment LM Ql (Urine sed) 1+ [facility] Work Phone: Basophil percentageon 2021 Basophil percentage 0-5 SEEN /hpf 0-5 [facility] Work Phone: Basophils/100 WBC (Bld) 0.8 % 0-1 [facility] Work Phone: Bilirubin [Mass/Vol] 1.10 mg/dL 0.20-1.00 [facility] Work Phone: Comment on above: For patients on eltr ombopag therapy, use of Dimension [place] TBIL is not recommended. Chloride [Moles/Vol] 102 mmol/L 98-107 [facility]: Eosinophils/100 WBC (Bld) 1.2 % 0-5 [facility] Work Phone: Glucose [Mass/Vol] 76 mg/dL 74-106 [facility] Work Phone: Neutrophils (Bld) [#/Vol] 3.8 10*3/uL 2.0-7.7 [facility] Work Phone: Neutrophils/100 WBC (Bld) 64.7 % 47-70 [facility] Work Phone: Potassium [Moles/Vol] 3.6 mmol/L 3.5-5.1 [facility] Work Phone: Protein [Mass/Vol] 6.0 g/dL 6.4-8.2 [facility] Work Phone: Sodium [Moles/Vol] 134 mmol/L 136-145 [facility] Work Phone: WBC (Bld) [#/Vol] 5.9 10*3/uL 4.4-11.0 [facility] Work Phone: Bilirubin Test strip Ql (U)o n 02-06-2022 Bilirubin Ql (U) 1 mg/dL Negative [facility] Work Phone: Comment on above: COLOR OF URINE MAY A FFECT DIPSTICK RESULTS. Blood erythrocytes count (nu mber/volume)on 02-06-2022 RBC (Bld) [#/Vol] 3.67 10*6/uL 4.2-5.4 [facility] Work Phone: Blood hemoglobin measurement (mass/volume)on 02-06-2022 Hemoglobin (Bld) [Mass/Vol] 11.9 g/dL 12.0-15.0 [facility] Work Phone: Blood lymphocytes/100 leukoc yteson 02-06-2022 Lymphocytes/100 WBC (Bld) 21.0 % 19-41 [facility] Work Phone: Blood monocytes/100 leukocyt eson 02-06-2022 Monocytes/100 WBC (Bld) 12.0 % 0-10 [facility] Work Phone: [phone] Blood platelet mean volumeon 02-06-2022 Platelet mean volume (Bld) [Entitic vol] 9.3 fL 6.2-12.0 [facility] Work Phone: [phone] Determination of erythrocyte mean corpuscular volume (MCV)on 02-06-2022 MCV (RBC) [Entitic vol] 96.2 fL 81-99 [facility] Work Phone: [phone] Hematocrit Auto (Bld) [Volum e fraction]on 02-06-2022 Hematocrit (Bld) [Volume fraction] 35.3 % 37-47 [facility] Work Phone: [phone] Ketones Test strip Ql (U)on 02-06-2022 Ketones Ql (U) 50 mg/dl Negative [facility] Work Phone: [phone] Laboratory - Chemistry and C hemistry - challengeon 02-06-2022 ALP [Catalytic activity/Vol] 75 U/L 45-117 [facility] Work Phone: [phone] ALT [Catalytic activity/Vol] 20 U/L 13-56 [facility] Work Phone: [phone] CO2 [Moles/Vol] 24.0 mmol/L 21.0-32.0 [facility] Work Phone: Free T4 [Mass/Vol] 0.78 ng/dL 0.76-1.46 [facility] Work Phone: [phone] Globulin (S) [Mass/Vol] 3.2 g/dL 2.2-4.2 [facility] Work Phone: Urea nitrogen/Creatinine [Mass ratio] 29.7 mg/mg 10-20 [facility] Work Phone: [phone] Laboratory - Drug toxicology on 02-06-2022 Amphetamines Ql (U) Negative <1000 ng/mL [facility] Work Phone: Benzodiazepines Ql (U) Negative < 200 ng/mL [facility] Work Phone: [phone] Cannabinoids Screen Ql (U) Negative < 50 ng/mL [facility] Work Phone: [phone] Cocaine Ql (U) Negative < 300 ng/mL [facility] Work Phone: [phone] Opiates Ql (U) Negative < 300 ng/mL [facility] Work Phone: [phone] Laboratory - Hematology and Cell countson 02-06-2022 Erythrocyte distribution width (RBC) [Entitic vol] 56.1 fL 35.1-43.9 [facility] Work Phone: [phone] Erythrocyte distribution width (RBC) [Ratio] 15.8 % 11.6-14.6 [facility] Work Phone: [phone] Immature granulocytes/100 WBC (Bld) 0.300 % 0.0-0.9 [facility] Work Phone: [phone] Comment on above: IG% - Immature Granu locytes (promyelocytes, myelocytes and metamyelocytes) > 1% indicates that a LEFT SHIFT is Present. MCH (RBC) [Entitic mass] 32.4 pg 27.0-32.0 [facility] Work Phone: [phone] Nucleated RBC/100 WBC (Bld) [Ratio] 0 % 0-5 [facility] Work Phone: [phone] MCHC Auto (RBC) [Mass/Vol]on 02-06-2022 MCHC (RBC) [Mass/Vol] 33.7 g/dL 32-36 [facility] Work Phone: [phone] Mucus LM Ql (Urine sed)on Mucus Ql (Urine sed) 0 SEEN /hpf [facility] Work Phone: [phone] Nitrite Test strip Ql (U)on 02-06-2022 Nitrite Ql (U) Negative Negative [facility] Work Phone: [phone] Panel Informationon 02-06 MDMA (Ecstasy) Screen Positive < 500 ng/mL [facility] Work Phone: [phone] Urine Barbiturates Screen Positive < 200 ng/mL [facility] Work Phone: [phone] Urine Drug Screen Comment [facility] Work Phone: [phone] Comment on above: CONFIRMATORY TESTING FOR ALL POSITIVE URINE DRUG SCREENRESULTS WILL ONLY BE SENT OUT UPON PHYSICIAN ORDER. VISTA Urine Drug Screen methods provide only preliminaryanalytical test results. A more specific alternate chemicalmethod must be used in order to obtain a confirmedanalytical result. Gas chromatography/mass spectrometery(GC/MS) is the preferred confirmatory method. Clinicalconsideration and professional judgement should be appliedto any drug of abuse test result, particularly whenpreliminary positive results are used. URINE TCA TESTING MUST BE ORDERED SEPARATELY. USE TESTMNEMONIC: [facility] Urine Methadone Screen Negative < 300 ng/mL [facility] Work Phone: [phone] Estimated Creatinine Clearance Calc 45.20 ml/min [facility] Work Phone: [phone] Estimated GFR (MDRD) Amer 144 mL/min >60 [facility] Work Phone: [phone] Comment on above: GFR Calc Estimated GFR (MDRD) Non-Af Amer 119 mL/min >60 [facility] Work Phone: [phone] Comment on above: Non- GFR Calc Platelets bldon 02-06-2022 Platelets (Bld) [#/Vol] 124 10*3/uL 150-450 [facility] Work Phone: [phone] Protein Test strip Ql (U)on 02-06-2022 Protein Ql (U) Negative Negative [facility] Work Phone: [phone] Serum or plasma albumin cony urement (mass/volume)on 02-06-2022 Albumin [Mass/Vol] 2.8 g/dL 3.2-5.0 [facility] Work Phone: [phone] Serum or plasma albumin/glob ulin mass ratioon 02-06-2022 Albumin/Globulin [Mass ratio] 0.9 {ratio} 0.9-2.4 [facility] Work Phone: [phone] Serum or plasma calcium cony urement (mass/volume)on 02-06-2022 Calcium [Mass/Vol] 8.7 mg/dL 8.5-10.1 [facility] Work Phone: Serum or plasma creatinine m easurement (mass/volume)on 02-06-2022 Creatinine [Mass/Vol] 0.54 mg/dL 0.55-1.02 [facility] Work Phone: Comment on above: The validity of the calculated GFR & GFRAA in patients over 70 years has not been determined. Clinical correlation is essential. Serum or plasma urea nitroge n measurement (mass/volume)on 02-06-2022 Urea nitrogen [Mass/Vol] 16 mg/dL 7-18 [facility] Work Phone: Squamous epithelial cells de tection in urine sediment by light microscopyon 02-06-2022 Epithelial cells.squamous LM Ql (Urine sed) 0 SEEN /hpf 5-10 [facility] Work Phone: Thin prep Papanicolaou smear with manual screeningon 02-06-2022 Thin prep Papanicolaou smear with manual screening 27 U/L 15-37 [facility] Work Phone: Thin prep Papanicolaou smear with manual screening 8 5-15 [facility] Work Phone: Urine blood detectionon 01-13 RBC Ql (U) Negative Negative [facility] Work Phone: RBC Ql (U) 0 SEEN /hpf 0-5 [facility] Work Phone: Urine clarityon 02-06-2022 Clarity (U) Clear Clear [facility] Work Phone: Urine color determinationon 02-06-2022 Color (U) Yellow Yellow [facility] Work Phone: Urine glucose detectionon Glucose Ql (U) Normal mg/dl Normal [facility] Work Phone: Urine leukocyte esterase det ection by dipstickon 02-06-2022 Leukocyte esterase Test strip Ql (U) 25 /ul Negative [facility] Work Phone: [phone] Urine pHon 02-06-2022 pH (U) 7.0 [pH] 5.0 - 8.0 [facility] Work Phone: [phone] Urine phencyclidine (PCP) de tectionon 02-06-2022 Phencyclidine Ql (U) Negative < 25 ng/mL [facility] Work Phone: Urine sediment bacteria coun t by microscopy (number/high power field)on 02-06-2022 Bacteria LM.HPF (Urine sed) [#/Area] 1 /[HPF] None Seen [facility] Work Phone: Urine specific gravity measu rementon 02-06-2022 Specific gravity (U) [Rel density] 1.010 1.002-1.030 [facility] Work Phone: Urobilinogen Auto test strip Ql (U)on 02-06-2022 Urobilinogen Ql (U) 4 mg/dl Normal [facility] Work Phone: Basophil percentageon 2021 Basophil percentage 3.1 mg/dL 2.5-4.9 [facility] Work Phone: INR in Blood by Coagulation assayon 02-05-2022 INR Coag (Bld) [Relative time] 1.0 {INR} [facility] Work Phone: Laboratory - Chemistry and C hemistry - challengeon 02-05-2022 Magnesium [Mass/Vol] 1.6 mg/dL 1.6-2.6 [facility] Work Phone: [phone] Laboratory - Coagulationon 0 02-05-2022 PT Coag (PPP) [Time] 12.6 s 11.7-14.9 [facility] Work Phone: No Panel Informationon 02-05 Ethyl Alcohol Level < 3.0 mg/dL [facility] Work Phone: [phone] Comment on above: The serum:whole bloo d ethanol ratio is approximately 1.14and varies slightly with hematocrit. Medical Alcohol reference interval and critical value innon-tolerant individuals; 50 - 100 Impairment 100 Intoxication 100 - 250 Severe Poisoning 250 - 400 Deep/possible fatal coma Thyroid Stimulating Hormone (TSH) 4.04 uIU/mL 0.358-3.74 [facility] Work Phone: Troponin I High Sensitivity 5 pg/mL 3.0-54.0 [facility] Work Phone: Comment on above: Please Note: New Maureen t Units and Gender Specific Reference Ranges. For more information see Policy Stat Procedure [place] High Sensitivity Troponin (TNIH) and attachments. Basic metabolic 2000 panelOr dered By: Blaise Aponte on 03-15-2021 Anion gap [Moles/Vol] 15 mmol/L 10 - 20 mmol/L [facility] Calcium [Mass/Vol] 9.2 mg/dL 8.4 - 10. 2 mg/dL [facility] Chloride [Moles/Vol] 108 mmol/L 98 - 108 mmol/L [facility] Creatinine [Mass/Vol] 0.48 mg/dL Low 0.60 - 1.20 [facility] GFR/1.73 sq M.predicted CKD-EPI (S/P/Bld) [Vol rate/Area] 100 >=60 mL/min/1.73 m2 [facility] Glucose [Mass/Vol] 78 mg/dL 65 - 99 mg/dL [facility] HCO3 [Moles/Vol] 20 mmol/L Low 21 - 32 mmol/L [facility] Interpretation and review of laboratory results Abnormal [facility] Potassium [Moles/Vol] 3.9 mmol/L 3.5 - 5.1 mmol/L [facility] Sodium [Moles/Vol] 139 mmol/L 135 - 145 mmol/L [facility] Urea nitrogen [Mass/Vol] 17 mg/dL 8 - 25 mg/dL [facility] Urea nitrogen/Creatinine [Mass ratio] 35.4 mg/mg High [facility] The eGFR should be used for monitoring renal function only and not for medication dosing. [facility] Basic metabolic 2000 panelOr dered By: Blaise Aponte on 03-14-2021 Anion gap [Moles/Vol] 13 mmol/L 10 - 20 mmol/L [facility] Calcium [Mass/Vol] 9.3 mg/dL 8.4 - 10. 2 mg/dL [facility] Chloride [Moles/Vol] 107 mmol/L 98 - 108 mmol/L [facility] Creatinine [Mass/Vol] 0.64 mg/dL 0.60 - 1.20 [facility] GFR/1.73 sq M.predicted CKD-EPI (S/P/Bld) [Vol rate/Area] 91 >=60 mL/min/1.73 m2 [facility] Glucose [Mass/Vol] 89 mg/dL 65 - 99 mg/dL [facility] HCO3 [Moles/Vol] 22 mmol/L 21 - 32 mmol/L [facility] Interpretation and review of laboratory results Abnormal [facility] Potassium [Moles/Vol] 4.8 mmol/L 3.5 - 5.1 mmol/L [facility] Comment on above: Slightly Hemolyzed Sodium [Moles/Vol] 137 mmol/L 135 - 145 mmol/L [facility] Urea nitrogen [Mass/Vol] 18 mg/dL 8 - 25 mg/dL [facility] Urea nitrogen/Creatinine [Mass ratio] 28.1 mg/mg High [facility] The eGFR should be used for monitoring renal function only and not for medication dosing. [facility] CBC WITH AUTO DIFFERENTIALOr dered By: Blaise Aponte on 03-14-2021 Basophils (Bld) [#/Vol] 0.07 10*3/uL [facility] Basophils/100 WBC (Bld) 1.2 % [facility] Eosinophils (Bld) [#/Vol] 0.08 10*3/uL [facility] Eosinophils/100 WBC (Bld) 1.4 % [facility] Erythrocyte distribution width (RBC) [Entitic vol] 14.0 % 11.6 - 14.8 % [facility] Hematocrit (Bld) [Volume fraction] 41.9 % 36.0 - 46.0 % [facility] Hemoglobin (Bld) [Mass/Vol] 13.8 g/dL 12.0 - 16.0 g/dL [facility] Immature granulocytes (Bld) [#/Vol] 0.02 10*3/uL [facility] Immature granulocytes/100 WBC (Bld) 0.30 % [facility] Comment on above: The IG parameter is the percentage of metamyelocytes, myelocytes and promyelocytes. An immature granulocyte count (IG) of 1% or more suggests the possibility of infection, an IG count of 3% is very likely related to an infection. Interpretation and review of laboratory results Abnormal [facility] Lymphocytes (Bld) [#/Vol] 1.63 10*3/uL [facility] Lymphocytes/100 WBC (Bld) 28.4 % [facility] MCH (RBC) [Entitic mass] 32.8 pg 26.0 - 34.0 pg [facility] MCHC (RBC) [Mass/Vol] 32.9 g/dL 31.0 - 37.0 g/dL [facility] MCV (RBC) [Entitic vol] 99.5 fL 80.0 - 100.0 fL [facility] Monocytes (Bld) [#/Vol] 0.97 10*3/uL High [facility] Monocytes/100 WBC (Bld) 16.9 % [facility] Neutrophils (Bld) [#/Vol] 2.97 10*3/uL [facility] Neutrophils/100 WBC (Bld) 51.8 % [facility] Nucleated RBC (Bld) [#/Vol] 0.00 10*3/uL [facility] Nucleated RBC/100 WBC (Bld) [Ratio] 0.0 % [facility] Platelet mean volume (Bld) [Entitic vol] 10.6 fL 9.4 - 12.4 fL [facility] Platelets (Bld) [#/Vol] 171 10*3/uL [facility] RBC (Bld) [#/Vol] 4.21 10*6/uL [facility] WBC (Bld) [#/Vol] 5.74 10*3/uL [facility] ECG 12-LEADOrdered By: Vy Basurto on 03-14-2021 Atrial Rate 81 BPM [facility] P Entiat 32 degrees [facility] P-R Interval 132 ms [facility] Q-T Interval 376 ms [facility] QRS Duration 86 ms [facility] QTC Calculation (Bezet) 436 ms [facility] R Entiat -25 degrees [facility] T Entiat 33 degrees [facility] Ventricular Rate 81 BPM [facility] Normal sinus rhythm Normal ECG Confirmed by LELAND MAYA MD ([id number]) on 03/14/2021 2:38:28 PM [facility] Acetaminophen LevelOrdered B y: Shin Bloom on 03-11-2021 Acetaminophen [Mass/Vol] ug/mL [facility] Acetaminophen [Mass/Vol]Orde red By: Shin Bloom on 03-11-2021 Interpretation and review of laboratory results Normal [facility] Alcohol, MedicalOrdered By: Shin Bloom on 03-11-2021 Ethanol [Mass/Vol] mg/dL <10.0 mg/dL [facility] Comment on above: Alcohol cutoff: <10. 00 mg/dL = None Detected Basic metabolic 2000 panelOr dered By: Shin Bloom on 03-11-2021 Anion gap [Moles/Vol] 11 mmol/L 10 - 20 mmol/L [facility] Calcium [Mass/Vol] 9.2 mg/dL 8.4 - 10. 2 mg/dL [facility] Chloride [Moles/Vol] 106 mmol/L 98 - 108 mmol/L [facility] Creatinine [Mass/Vol] 0.44 mg/dL Low 0.60 - 1.20 [facility] GFR/1.73 sq M.predicted CKD-EPI (S/P/Bld) [Vol rate/Area] 103 >=60 mL/min/1.73 m2 [facility] GFR/1.73 sq M.predicted CKD-EPI (S/P/Bld) [Vol rate/Area] 119 >=60 mL/min/1.73 m2 [facility] Glucose [Mass/Vol] 88 mg/dL 65 - 99 mg/dL [facility] HCO3 [Moles/Vol] 24 mmol/L 21 - 32 mmol/L [facility] Interpretation and review of laboratory results Abnormal [facility] Potassium [Moles/Vol] 3.9 mmol/L 3.5 - 5.1 mmol/L [facility] Sodium [Moles/Vol] 137 mmol/L 135 - 145 mmol/L [facility] Urea nitrogen [Mass/Vol] 15 mg/dL 8 - 25 mg/dL [facility] Urea nitrogen/Creatinine [Mass ratio] 34.1 mg/mg High [facility] The eGFR should be used for monitoring renal function only and not for medication dosing. [facility] CBC WITH AUTO DIFFERENTIALOr dered By: Shin Bloom on 03-11-2021 Basophils (Bld) [#/Vol] 0.04 10*3/uL [facility] Basophils/100 WBC (Bld) 0.7 % [facility] Eosinophils (Bld) [#/Vol] 0.07 10*3/uL [facility] Eosinophils/100 WBC (Bld) 1.2 % [facility] Erythrocyte distribution width (RBC) [Entitic vol] 13.7 % 11.6 - 14.8 % [facility] Hematocrit (Bld) [Volume fraction] 37.7 % 36.0 - 46.0 % [facility] Hemoglobin (Bld) [Mass/Vol] 12.4 g/dL 12.0 - 16.0 g/dL [facility] Immature granulocytes (Bld) [#/Vol] 0.01 10*3/uL [facility] Immature granulocytes/100 WBC (Bld) 0.20 % [facility] Comment on above: The IG parameter is the percentage of metamyelocytes, myelocytes and promyelocytes. An immature granulocyte count (IG) of 1% or more suggests the possibility of infection, an IG count of 3% is very likely related to an infection. Interpretation and review of laboratory results Abnormal [facility] Lymphocytes (Bld) [#/Vol] 1.36 10*3/uL [facility] Lymphocytes/100 WBC (Bld) 23.1 % [facility] MCH (RBC) [Entitic mass] 32.9 pg 26.0 - 34.0 pg [facility] MCHC (RBC) [Mass/Vol] 32.9 g/dL 31.0 - 37.0 g/dL [facility] MCV (RBC) [Entitic vol] 100.0 fL 80.0 - 100.0 fL [facility] Monocytes (Bld) [#/Vol] 0.61 10*3/uL [facility] Monocytes/100 WBC (Bld) 10.4 % [facility] Neutrophils (Bld) [#/Vol] 3.79 10*3/uL [facility] Neutrophils/100 WBC (Bld) 64.4 % [facility] Nucleated RBC (Bld) [#/Vol] 0.00 10*3/uL [facility] Nucleated RBC/100 WBC (Bld) [Ratio] 0.0 % [facility] Platelet mean volume (Bld) [Entitic vol] 10.5 fL 9.4 - 12.4 fL [facility] Platelets (Bld) [#/Vol] 145 10*3/uL Low [facility] RBC (Bld) [#/Vol] 3.77 10*6/uL Low [facility] WBC (Bld) [#/Vol] 5.88 10*3/uL [facility] COVID-19/INFLUENZA A,B MOLEC Demond 03-11-2021 SARS-CoV-2 (COVID-19) Ab IA Ql SARS-COV-2 (ALEJA): Not Detected INFLUENZA A (ALEJA): Not Detected INFLUENZA B (ALEJA): Not Detected Normal Not Detected [facility] Comment on above: Order Comment: This test was performed under the FDA's Emergency Use Authorization (EUA). Testing was performed using the [facility] SARS-CoV-2 RT-PCR AND Influenza A/B Nucleic Acid Test on the [facility] System. This test has not been approved for use in asymptomatic patients and its performance in this patient population has not been evaluated. Negative results do not rule out the presence of SARS-CoV-2, influenza A, and/or influenza B. Fact sheets for the EUA can be found at the following links: For Healthcare Providers: https://www.fda.gov/media/466980/download For Patients: https://www.fda.gov/media/151513/download Performed By: #### L [id number] #### [facility] [address] [place] [address] Joe Mcpherson M.D. [id number] COVID-19/Influenza A,B Molec ularOrdered By: Shin Bloom on 03-11-2021 SARS-CoV-2 (COVID-19) RNA CY+probe Ql (Resp) Not detected Not Detected [facility] CT HEAD OR BRAIN WITHOUT CON TRASTon 03-11-2021 CT HEAD OR BRAIN WITHOUT CONTRAST EXAMINATION: CT OF THE BRAIN. HISTORY: Altered mental status COMPARISON: None. TECHNIQUE: Axial CT images were acquired from the skull base to the vertex without the use of intravenous contrast. Dose reduction techniques were achieved by using automated exposure control and/or adjustment of mA and/or kV according to patient size and/or use of iterative reconstruction technique. FINDINGS: Orbital structures are intact. Paranasal sinuses and mastoid air cells are clear. There is no evidence for intracranial hemorrhage, mass effect, or hydrocephalus. No extra-axial collection or midline shift is identified. Brain is atrophic. Chronic ischemic changes in the subcortical white matter. Dense carotid calcifications. IMPRESSION: 1. No acute intracranial abnormality. Brain atrophy is present, advanced for age. Workstation ID: [id number] Dictated by: RICHELLE CREWS on Sat March 11, 2021 2:14:13 AM EDT Transcribed by: RICHELLE CREWS on Sat March 11, 2021 2:14:13 AM EDT Finalized by: RICHELLE CREWS on SatMarch 11, 2021 2:14:13 AM EDT Normal [facility] Comment on above: Order Comment: Injur y/Trauma or Illness?:Illness/Other How long have you had these symptoms (acute/chronic)?:Acute Reason for exam?:ams Type of Exam?:Initial Additional signs and symptoms?: CT HEAD OR BRAIN WITHOUT CON TRASTOrdered By: Shin Bloom on 03-11-2021 1. No acute intracranial abnormality. Brain atrophy is present, advanced for age. Workstation ID: [id number] [facility] EXAMINATION: CT OF THE BRAIN. HISTORY: Altered mental status COMPARISON: None. TECHNIQUE: Axial CT images were acquired from the skull base to the vertex without the use of intravenous contrast. Dose reduction techniques were achieved by using automated exposure control and/or adjustment of mA and/or kV according to patient size and/or use of iterative reconstruction technique. FINDINGS: Orbital structures are intact. Paranasal sinuses and mastoid air cells are clear. There is no evidence for intracranial hemorrhage, mass effect, or hydrocephalus. No extra-axial collection or midline shift is identified. Brain is atrophic. Chronic ischemic changes in the subcortical white matter. Dense carotid calcifications. [facility] Interface, Rad In Fu ji Speechq - 03/11/2021 2:17 AM EDT EXAMINATION: CT OF THE BRAIN. HISTORY: Altered mental status COMPARISON: None. TECHNIQUE: Axial CT images were acquired from the skull base to the vertex without the use of intravenous contrast. Dose reduction techniques were achieved by using automated exposure control and/or adjustment of mA and/or kV according to patient size and/or use of iterative reconstruction technique. FINDINGS: Orbital structures are intact. Paranasal sinuses and mastoid air cells are clear. There is no evidence for intracranial hemorrhage, mass effect, or hydrocephalus. No extra-axial collection or midline shift is identified. Brain is atrophic. Chronic ischemic changes in the subcortical white matter. Dense carotid calcifications. IMPRESSION: 1. No acute intracranial abnormality. Brain atrophy is present, advanced for age. Workstation ID: [id number] [facility] DRUGS OF ABUSE SCREEN, URINE Ordered By: Shin Bloom on 03-11-2021 Amphetamines Ql (U) Not detected None Detected [facility] Comment on above: Urine Amphetamine Cu toff: < 1000 ng/mL = None Detected Barbiturates Screen Ql (U) Positive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 normal in appearance. Cerebellar tonsils are in normal location. Visualized paranasal sinuses and mastoids are normal in signal. Bone marrow signal is unremarkable. IMPRESSION: 1. Thin left cerebral convexity subdural fluid collection measuring up to 4 mm in thickness near the vertex, likely hemorrhage. This is likely resolving chronic subdural hematoma compared to the study of 12/13/2020 as it is not hyperdense on recent CT head of 02/15/2021. This is significantly decreased compared to study of 12/13/2020. 2. No acute infarct. 3. Mild hemosiderin staining is present along the anterior temporal lobes bilaterally, right greater left, likely sequela of prior subdural hematomas. Magnetic Resonance Imaging Report 4. 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 CRITICAL TEST COMMUNICATION: Dr. Weston was notified by perfect serve today at 2:13 PM. Report Dictated on Final Dictating Physician: MD HEATON NEIL Signed Date and Time: 02/17/2021 2:15 pm Signed by: MD HEATON NEIL Transcribed Date and Time: 02/17/2021 2:16 Normal [facility] MRI brain without contrastOr dered By: Rafael Castillo on 02-17-2021 Patient Name: JAZMIN JOHNSON [facility] ACCESSION EXAM DATE/TIME PROCEDURE ORDERING PROVIDER [id number] 02/17/2021 13:51 EDT MRI Brain w/o Contrast Bharat CASTILLO MICHAEL THOMAS CPT code 63299 Reason For Exam (MRI Brain w/o Contrast) TIA Report EXAM TYPE: MRI Brain w/o Contrast EXAM DATE AND TIME: 02/17/2021 1:51 PM EDT INDICATION: TIA, altered mental status COMPARISON: MRI brain on 12/13/2020, CT head on 02/15/2021 TECHNIQUE: MR imaging of the brain was obtained without contrast. FINDINGS: There is a thin left cerebral convexity subdural fluid collection measuring up to 4 mm in thickness near the vertex, likely hemorrhage. This is likely resolving chronic subdural hematoma compared to the study of 12/13/2020 as it is not hyperdense on recent CT head of 02/15/2021. This is significantly decreased compared to study of 12/13/2020. No midline shift or significant mass effect on the left cerebral hemisphere. Prominence of the ventricles and sulci in keeping with cerebral volume loss. Mild hemosiderin staining is present along the anterior temporal lobes bilaterally, right greater left, likely sequela of prior subdural hematomas. There is small region of encephalomalacia and gliosis within the anterior right temporal lobe from prior infarct or insult. No cerebral edema, mass effect or evidence of intracranial mass. No acute infarction seen on the diffusion sequence. The intracranial vascular flow voids are normal in appearance. Cerebellar tonsils are in normal location. Visualized paranasal sinuses and mastoids are normal in signal. Bone marrow signal is unremarkable. IMPRESSION: 1. Thin left cerebral convexity subdural fluid collection measuring up to 4 mm in thickness near the vertex, likely hemorrhage. This is likely resolving chronic subdural hematoma compared to the study of 12/13/2020 as it is not hyperdense on recent CT head of 02/15/2021. This is significantly decreased compared to study of 12/13/2020. 2. No acute infarct. 3. Mild hemosiderin staining is present along the anterior temporal lobes bilaterally, right greater left, likely sequela of prior subdural hematomas. Magnetic Resonance Imaging Report 4. 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 CRITICAL TEST COMMUNICATION: Dr. Weston was notified by perfect serve today at 2:13 PM. Report Dictated on --- Final --- Dictating Physician: MD HEATON NEIL Signed Date and Time: 02/17/2021 2:15 pm Signed by: MD HEATON NEIL Transcribed Date and Time: 02/17/2021 2:16 [facility] Work Phone: [place], [facility] Incoming Radiology Results From [facility] - 02/17/2021 2:16 PM EDT Patient Name: JAZMIN JOHNSON Magnetic Resonance Imaging ACCESSION EXAM DATE/TIME PROCEDURE ORDERING PROVIDER [id number] 02/17/2021 13:51 EDT MRI Brain w/o Contrast Bharat CASTILLO MICHAEL THOMAS CPT code 20214 Reason For Exam (MRI Brain w/o Contrast) TIA Report EXAM TYPE: MRI Brain w/o Contrast EXAM DATE AND TIME: 02/17/2021 1:51 PM EDT INDICATION: TIA, altered mental status COMPARISON: MRI brain on 12/13/2020, CT head on 02/15/2021 TECHNIQUE: MR imaging of the brain was obtained without contrast. FINDINGS: There is a thin left cerebral convexity subdural fluid collection measuring up to 4 mm in thickness near the vertex, likely hemorrhage. This is likely resolving chronic subdural hematoma compared to the study of 12/13/2020 as it is not hyperdense on recent CT head of 02/15/2021. This is significantly decreased compared to study of 12/13/2020. No midline shift or significant mass effect on the left cerebral hemisphere. Prominence of the ventricles and sulci in keeping with cerebral volume loss. Mild hemosiderin staining is present along the anterior temporal lobes bilaterally, right greater left, likely sequela of prior subdural hematomas. There is small region of encephalomalacia and gliosis within the anterior right temporal lobe from prior infarct or insult. No cerebral edema, mass effect or evidence of intracranial mass. No acute infarction seen on the diffusion sequence. The intracranial vascular flow voids are normal in appearance. Cerebellar tonsils are in normal location. Visualized paranasal sinuses and mastoids are normal in signal. Bone marrow signal is unremarkable. IMPRESSION: 1. Thin left cerebral convexity subdural fluid collection measuring up to 4 mm in thickness near the vertex, likely hemorrhage. This is likely resolving chronic subdural hematoma compared to the study of 12/13/2020 as it is not hyperdense on recent CT head of 02/15/2021. This is significantly decreased compared to study of 12/13/2020. 2. No acute infarct. 3. Mild hemosiderin staining is present along the anterior temporal lobes bilaterally, right greater left, likely sequela of prior subdural hematomas. Magnetic Resonance Imaging Report 4. 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 CRITICAL TEST COMMUNICATION: Dr. Weston was notified by perfect serve today at 2:13 PM. Report Dictated on --- Final --- Dictating Physician: MD HEATON NEIL Signed Date and Time: 02/17/2021 2:15 pm Signed by: MD HEATON NEIL Transcribed Date and Time: 02/17/2021 2:16 [facility] Work Phone: Basic Metabolic Panelon 05-0 -2020 Calcium [Mass/Vol] 8.8 mg/dL Normal 8.4-10.4 [facility] Comment on above: Performed By: #### K 3, MG3 #### [facility] [address] [place] [address] Glucose [Mass/Vol] 74 mg/dL Normal 70-100 [facility] Comment on above: Performed By: #### K 3, MG3 #### [facility] [address] [place] [address] Anion gap [Moles/Vol] 8 mmol/L Normal 3-13 [facility] Comment on above: Performed By: #### K 3, MG3 #### [facility] [address] [place] [address] CO2 [Moles/Vol] 21 mmol/L Low 22-30 [facility] Comment on above: Performed By: #### K 3, MG3 #### [facility] [address] [place] [address] Creatinine [Mass/Vol] 0.54 mg/dL Normal 0.52-1.25 [facility] Comment on above: Performed By: #### K 3, MG3 #### [facility] [address] [place] [address] eGFR OTHER > 90.0 Normal >60 [facility] Comment on above: Result Comment: KDIG O guidelines provide the following GFR categories: Stage GFR(ml/min/1.73 m2) Terms G1 >=90 Normal or high G2 60-89 Mildly decreased* G3a 45-59 Mildly to moderately decreased G3b 30-44 Moderately to severely decreased G4 15-29 Severely decreased G5 <15 Kidney failure *Relative to young adult level. In the absence of evidence of kidney damage, neither GFR category G1 nor G2 fulfill the criteria for CKD. The CKD-EPI equation is validated in individuals 18 years of age and older. Currently the best equation for estimating glomerular filtration rate (GFR) from serum creatinine in children is the Bedside Robison equation. It is less accurate in patients with extremes of muscle mass, restriction of dietary protein, ingestion of creatine, extra-renal metabolism of creatinine, or treatment with medications that affect renal tubular creatinine secretion. Performed By: #### K 3, MG3 #### [facility] [address] [place] [address] GFR/1.73 sq M.predicted among blacks MDRD (S/P/Bld) [Vol rate/Area] mL/min/{1.73_m2} Normal >60 [facility] Comment on above: Performed By: #### K 3, MG3 #### [facility] [address] [place] [address] Urea nitrogen [Mass/Vol] 10 mg/dL Normal 7-20 [facility] Comment on above: Performed By: #### K 3, MG3 #### [facility] [address] [place] [address] Potassium [Moles/Vol] 3.6 mmol/L Normal 3.5-5.1 [facility] Comment on above: Performed By: #### K 3, MG3 #### [facility] [address] [place] [address] Sodium [Moles/Vol] 134 mmol/L Low 135-145 [facility] Comment on above: Performed By: #### K 3, MG3 #### [facility] [address] [place] [address] Chloride [Moles/Vol] 105 mmol/L Normal 98-107 [facility] Comment on above: Performed By: #### K 3, MG3 #### [facility] [address] [place] [address] Basic Metabolic PanelOrdered By: Frankie Sorensen on 02-16-2021 Anion gap [Moles/Vol] 8 mmol/L 3 - 13 mmol/L [facility] Work Phone: Calcium [Mass/Vol] 8.8 mg/dL 8.4 - 10. 4 mg/dL [facility] Work Phone: [phone] Chloride [Moles/Vol] 105 mmol/L 98 - 107 mmol/L [facility] Work Phone: [phone] CO2 [Moles/Vol] 21 mmol/L Low 22 - 30 mmol/L [facility] Work Phone: [phone] Creatinine [Mass/Vol] 0.54 mg/dL 0.52 - 1.25 mg/dL [facility] Work Phone: [phone] IF NonAfrican Eritrean >90.0 >60 mL/min [facility] Work Phone: [phone] Comment on above: KDIGO guidelines pro vide the following GFR categories: Stage GFR(ml/min/1.73 m2) Terms G1 >=90 Normal or high G2 60-89 Mildly decreased* G3a 45-59 Mildly to moderately decreased G3b 30-44 Moderately to severely decreased G4 15-29 Severely decreased G5 <15 Kidney failure *Relative to young adult level. In the absence of evidence of kidney damage, neither GFR category G1 nor G2 fulfill the criteria for CKD. The CKD-EPI equation is validated in individuals 18 years of age and older. Currently the best equation for estimating glomerular filtration rate (GFR) from serum creatinine in children is the Bedside Robison equation. It is less accurate in patients with extremes of muscle mass, restriction of dietary protein, ingestion of creatine, extra-renal metabolism of creatinine, or treatment with medications that affect renal tubular creatinine secretion. GFR/1.73 sq M.predicted among blacks MDRD (S/P/Bld) [Vol rate/Area] mL/min/{1.73_m2} >60 mL/min [facility] Work Phone: [phone] Glucose [Mass/Vol] 74 mg/dL 70 - 100 mg/dL [facility] Work Phone: [phone] Potassium [Moles/Vol] 3.6 mmol/L 3.5 - 5.1 mmol/L [facility] Work Phone: [phone] Sodium [Moles/Vol] 134 mmol/L Low 135 - 145 mmol/L [facility] Work Phone: [phone] Urea nitrogen (BldV) [Mass/Vol] 10 mg/dL 7 - 20 mg/dL [facility] Work Phone: [phone] CBCOrdered By: Rafael jones on 02-16-2021 Hematocrit (Bld) [Volume fraction] 37.8 % 35.0 - 47.0 % [employer] Work Phone: Hemoglobin.gastrointe stinal spec 1 Ql (Stl) 13.1 g/dL 11.7 - 16.0 g/dL [employer] Work Phone: Interpretation and review of laboratory results Abnormal [employer] Work Phone: MCH (RBC) [Entitic mass] 33.4 pg 26.0 - 34.0 pg [employer] Work Phone: MCHC (RBC) [Mass/Vol] 34.6 % 32.0 - 36.0 % [employer] Work Phone: MCV (RBC) [Entitic vol] 96.6 fL 79.0 - 98.0 fL [employer] Phone: Platelet distribution width (Bld) [Ratio] 15.0 % High 11.5 - 14.5 % [employer] Work Phone: Platelet mean volume (Bld) [Entitic vol] 9.5 fL 7.4 - 10.4 fL [employer] Phone: Platelets (Bld) [#/Vol] 123 10*3/uL Low 140 - 440 10*3/uL [employer] Work Phone: RBC (Bld) [#/Vol] 3.91 10*6/uL 3.80 - 5.2 0 10*6/uL [employer] [employer] [facility] Work Phone: WBC (Bld) [#/Vol] 4.1 10*3/uL 3.6 - 10.7 10*3/uL [employer] Work Phone: Test Performed by [facility], [address] [place], [place] [address] [employer] Work Phone: [phone] Urinalysison 2020 Appearance (U) Clear Normal Clear [facility] Comment on above: Result Comment: . Performed By: #### K 3, MG3 #### [facility] [address] [place] [address] Bilirubin,Urine Negative Normal Negative [facility] Comment on above: Result Comment: . Performed By: #### K 3, MG3 #### [facility] [address] [place] [address] Color (U) Light-Yellow Normal Lt. Yellow [facility] Comment on above: Result Comment: . Performed By: #### K 3, MG3 #### [facility] [address] [place] [address] Glucose Ql (U) Normal Normal Normal (<70) [facility] Comment on above: Result Comment: . Performed By: #### K 3, MG3 #### [facility] [address] [place] [address] Ketone,Urine 80 mg/dL Abnormal Negative [facility] Comment on above: Result Comment: . Performed By: #### K 3, MG3 #### [facility] [address] [place] [address] Leukocytes,Urine Negative Normal Negative [facility] Comment on above: Result Comment: . Performed By: #### K 3, MG3 #### [facility] [address] [place] [address] Nitrites,Urine Negative Normal Negative [facility] Comment on above: Result Comment: . Performed By: #### K 3, MG3 #### [facility] [address] [place] [address] Occult Blood,Urine Negative Normal Negative [facility] Comment on above: Result Comment: . Performed By: #### K 3, MG3 #### [facility] [address] [place] [address] pH,Urine 6.5 Normal 5.0-8.0 [facility] Comment on above: Result Comment: . Performed By: #### K 3, MG3 #### [facility] [address] [place] [address] Specific [place],Urine 1.020 Normal 1.005 - 1.030 [facility] Comment on above: Result Comment: . Performed By: #### K 3, MG3 #### [facility] [address] [place] [address] Total Protein,Urine Negative Normal Negative [facility] Comment on above: Result Comment: . Performed By: #### K 3, MG3 #### [facility] [address] [place] [address] Urobilinogen,Urine 2 mg/dL Abnormal Normal (0-1) [facility] Comment on above: Result Comment: . Performed By: #### K 3, MG3 #### [facility] [address] [place] [address] Drugs of Abuseon 02-16-2021 Phencyclidine (PCP), Ur Negative Normal [facility] Comment on above: Result Comment: The expected value for all of the drugs listed above is Negative. The following drugs or drug groups have been screened for by Immunoassay at the following thresholds: Amphetamine class (1000 ng/mL), Barbiturates (200 ng/mL), Benzodiazepines (200 ng/mL), Cocaine (300 ng/mL), Methadone (300 ng/mL), Opiates (300 ng/mL), Oxycodone (100 ng/mL), and PCP (25 ng/mL). NOTE: These results are for medical treatment only. Analysis performed using non-forensic procedures. POSITIVE results are NOT confirmed by a more specific alternative method unless requested. If confirmation is needed, request confirmation under separate order. Performed By: #### K 3, MG3 #### [facility] [address] [place] [address] Methadone, Ur Negative Normal [facility] Comment on above: Performed By: #### K 3, MG3 #### [facility] [address] [place] [address] Opiates, Ur Negative Normal [facility] Comment on above: Performed By: #### K 3, MG3 #### [facility] [address] [place] [address] Amphetamines, Ur Negative Normal [facility] Comment on above: Performed By: #### K 3, MG3 #### [facility] [address] [place] [address] Cocaine, Ur Negative Normal [facility] Comment on above: Performed By: #### K 3, MG3 #### [facility] [address] [place] [address] Benzodiazepines, Ur Negative Normal [facility] Comment on above: Performed By: #### K 3, MG3 #### [facility] [address] [place] [address] Barbiturates, Ur Positive Normal [facility] Comment on above: Performed By: #### K 3, MG3 #### [facility] [address] [place] [address] Oxycodone/Oxymorphine ,Ur Negative Normal [facility] Comment on above: Performed By: #### K 3, MG3 #### [facility] [address] [place] [address] EKG 12 Lead if not already d one by SquadOrdered By: Arpit Buchanan on 02-16-2021 [facility] Test Date: 2021-02-15 Pat Name: JAZMIN JOHNSON Department: 01 Room: 254 Gender: F [employer]: JAZZMINE : 1950 Requested By: ARPIT BUCHANAN Order Number: [id number] Reading MD: Eliecer Echevarria Measurements Intervals [place] Rate: 107 P: 62 [place]: 128 QRS: -3 QRSD: 94 T: 48 QT: 340 QTc: 454 Interpretive Statements SINUS TACHYCARDIA Otherwise Normal ECG Electronically Signed On 02-16-2021 13:52:22 EDT by Eliecer MÁRQUEZ Work Phone: [place], [facility] Incoming Cardiology Results From [facility] [place] [facility] - 02/16/2021 1:53 PM EDT [facility] Test Date: 2021-02-15 Pat Name: JAZMIN JOHNSON Department: 01 Room: 254 Gender: F [employer] Officer: JAZZMINE : 1950 Requested By: ARPIT BUCHANAN Order Number: [id number] Reading MD: Eliecer Echevarria Measurements Intervals Entiat Rate: 107 P: 62 [place]: 128 QRS: -3 QRSD: 94 T: 48 QT: 340 QTc: 454 Interpretive Statements SINUS TACHYCARDIA Otherwise Normal ECG Electronically Signed On 02-16-2021 13:52:22 EDT by Eliecer Meyer Phone: Hemoglobin A1Con 02-16-2021 Glucose [Mass/Vol] 100 mg/dL Normal [facility] Comment on above: Performed By: #### B MP3, CK3, TROPN, LFT3, HEMDF, NH33, ETOH4 #### [facility] [address] [place] [address] HbA1c (Bld) [Mass fraction] 5.1 % Normal [facility] Comment on above: Result Comment: Norm al less than 5.7% Prediabetes 5.7% to 6.4% Diabetes 6.5% or higher --HgbA1C levels may not be accurate in patients who have renal disease, received recent blood transfusions, are anemic, or who have dyshemoglobinemia. Performed By: #### B MP3, CK3, TROPN, LFT3, HEMDF, NH33, ETOH4 #### [facility] [address] [place] [address] Hemoglobin [id number] By: Tierra Castillo on 02-16-2021 HbA1c (Bld) [Mass fraction] 5.1 % [facility] Work Phone: Comment on above: Normal less than 5.7 % Prediabetes 5.7% to 6.4% Diabetes 6.5% or higher --HgbA1C levels may not be accurate in patients who have renal disease, received recent blood transfusions, are anemic, or who have dyshemoglobinemia. Magnesium [Mass/Vol] 100 mg/dL [facility] Work Phone: Test Performed by [facility], [address] [place], [place] [id number] [place] [address] Work Phone: Hemogramon 02-16-2021 Erythrocyte distribution width (RBC) [Ratio] 15.0 % High 11.5-14.5 [facility] Comment on above: Performed By: #### B MP3, CK3, TROPN, LFT3, HEMDF, NH33, ETOH4 #### [facility] [address] [place] [address] Hematocrit (Bld) [Volume fraction] 37.8 % Normal 35.0-47.0 [facility] Comment on above: Performed By: #### B MP3, CK3, TROPN, LFT3, HEMDF, NH33, ETOH4 #### [facility] [address] [place] [address] Hemoglobin (Bld) [Mass/Vol] 13.1 g/dL Normal 11.7-16.0 [facility] Comment on above: Performed By: #### B MP3, CK3, TROPN, LFT3, HEMDF, NH33, ETOH4 #### [facility] [address] [place] [address] MCH (RBC) [Entitic mass] 33.4 pg Normal 26.0-34.0 [facility] Comment on above: Performed By: #### B MP3, CK3, TROPN, LFT3, HEMDF, NH33, ETOH4 #### [facility] [address] [place] [address] MCHC 34.6 % Normal 32.0-36.0 [facility] Comment on above: Performed By: #### B MP3, CK3, TROPN, LFT3, HEMDF, NH33, ETOH4 #### [facility] [address] [place] [address] MCV (RBC) [Entitic vol] 96.6 fL Normal 79.0-98.0 [facility] Comment on above: Performed By: #### B MP3, CK3, TROPN, LFT3, HEMDF, NH33, ETOH4 #### [facility] [address] [place] [address] Platelet mean volume (Bld) [Entitic vol] 9.5 fL Normal 7.4-10.4 [facility] Comment on above: Performed By: #### B MP3, CK3, TROPN, LFT3, HEMDF, NH33, ETOH4 #### [facility] [address] [place] [address] Platelets (Bld) [#/Vol] 123 10*3/uL Low 140-440 [facility] Comment on above: Performed By: #### B MP3, CK3, TROPN, LFT3, HEMDF, NH33, ETOH4 #### [facility] [address] [place] [address] RBC (Bld) [#/Vol] 3.91 10*6/uL Normal 3.80-5.20 [facility] Comment on above: Performed By: #### B MP3, CK3, TROPN, LFT3, HEMDF, NH33, ETOH4 #### [facility] [address] [place] [address] WBC (Bld) [#/Vol] 4.1 10*3/uL Normal 3.6-10.7 [facility] Comment on above: Performed By: #### B MP3, CK3, TROPN, LFT3, HEMDF, NH33, ETOH4 #### [facility] [address] [place] [address] Lipid Panelon 02-16-2021 Chol/HDL 3 Normal [facility] Comment on above: Result Comment: Ref Range: < 3 Low Risk for CHD 3-6 Mod Risk for CHD > 6 High Risk for CHD Performed By: #### K 3, MG3 #### [facility] [address] [place] [address] Cholesterol in HDL [Mass/Vol] 64 mg/dL High 40-60 [facility] Comment on above: Performed By: #### K 3, MG3 #### [facility] [address] [place] [address] Low Density Lipoprotein 128 mg/dL Abnormal <100 [facility] Comment on above: Performed By: #### K 3, MG3 #### [facility] [address] [place] [address] Triglyceride [Mass/Vol] 136 mg/dL Normal <150 [facility] Comment on above: Performed By: #### K 3, MG3 #### [facility] [address] [place] [address] Cholesterol [Mass/Vol] 219 mg/dL Abnormal < 200 [facility] Comment on above: Performed By: #### K 3, MG3 #### [facility] [address] [place] [address] Lipid PanelOrdered By: Sarai Sorensen on 02-16-2021 Cholesterol [Mass/Vol] 219 mg/dL Abnormal <200 [facility] Work Phone: [phone] Cholesterol in HDL [Mass/Vol] 64 mg/dL High 40 - 60 mg/dL [facility] Work Phone: [phone] Cholesterol in LDL [Mass/Vol] 128 mg/dL Abnormal <100 [facility] Work Phone: [phone] Cholesterol.total/Cho lesterol in HDL [Mass ratio] 3 {ratio} [facility] Work Phone: [phone] Comment on above: Ref Range: < 3 Low Risk for CHD 3-6 Mod Risk for CHD > 6 High Risk for CHD Triglyceride [Mass/Vol] 136 mg/dL <150 [facility] Work Phone: [phone] Panel InformationOrdered By: Frankie Sorensen on 02-16-2021 Interpretation and review of laboratory results Abnormal [employer] Work Phone: [phone] Test Performed by [facility], [address] [place] [address] [employer] Work Phone: [phone] UrinalysisOrdered By: Edith Castillo on 02-16-2021 Appearance (U) Clear Clear NA [employer] Work Phone: [phone] Comment on above: . Bilirubin Urine Negative Negative mg/dL [employer] Work Phone: [phone] Comment on above: . Color (U) Light-Yellow Lt. Yellow NA [facility] Work Phone: [phone] Comment on above: . Glucose, Ur Normal Normal (<70) mg/dL [employer] Work Phone: [phone] Comment on above: . Interpretation and review of laboratory results Abnormal [facility] Work Phone: [phone] Ketones Ql (U) 80 mg/dL Abnormal Negative [facility] Work Phone: [phone] Comment on above: . LEUKOCYTES, UA Negative Negative Jennifer/uL [facility] Work Phone: [phone] Comment on above: . Nitrite, Urine Negative Negative NA [facility] Work Phone: [phone] Comment on above: . Occult Blood,Urine Negative Negative mg/dL [facility] Work Phone: [phone] Comment on above: . pH (U) 6.5 [pH] [facility] Work Phone: [phone] Comment on above: . Specific [place], Urine 1.020 [facility] Work Phone: 1 Comment on above: . Total Protein, Urine Negative Negative mg/dL [facility] Work Phone: 1 Comment on above: . Urobilinogen, Urine 2 mg/dL Abnormal Normal (0-1) [facility] Work Phone: 1 Comment on above: . Test Performed by [facility], [address] [place], [place] [address] [employer] [facility] Work Phone: [phone] Urine Drug ScreenOrdered By: Rafael Castillo on 02-16-2021 Amphetamines, urine Negative [facility] Work Phone: [phone] Barbiturates, Ur Positive [facility] Work Phone: 1 Benzodiazepine Ur Qual Negative [facility] Work Phone: 1 Cocaine Metabolites, Ur Negative [facility] Work Phone: 1 Methadone, Urine Negative [facility] Work Phone: 1 Opiates, Urine Negative [facility] Work Phone: 1 Oxycodone Screen, Ur Negative [facility] Work Phone: 1 PCP, Urine Negative [facility] Work Phone: 1 Comment on above: The expected value f or all of the drugs listed above is Negative. The following drugs or drug groups have been screened for by Immunoassay at the following thresholds: Amphetamine class (1000 ng/mL), Barbiturates (200 ng/mL), Benzodiazepines (200 ng/mL), Cocaine (300 ng/mL), Methadone (300 ng/mL), Opiates (300 ng/mL), Oxycodone (100 ng/mL), and PCP (25 ng/mL). NOTE: These results are for medical treatment only. Analysis performed using non-forensic procedures. POSITIVE results are NOT confirmed by a more specific alternative method unless requested. If confirmation is needed, request confirmation under separate order. Test Performed by [facility], [address] [place], [place], [place] [address] [facility] Work Phone: APTTon 02-15-2021 aPTT Coag (Bld) [Time] 21.0 s Normal 20.0-30.5 [facility] [facility] Comment on above: Result Comment: NOTE : The therapeutic time for Heparin anticoagulation, based on Xa activity inhibition, is an APTT of 46-80 seconds. Performed By: #### K 3, MG3 #### [facility] [employer] [address] [place] [address] APTTOrdered By: Arpit de la rosa on 02-15-2021 aPTT Coag (Bld) [Time] 21 s 20.0 - 30.5 s [facility] Work Phone: [phone] Comment on above: NOTE: The therapeuti c time for Heparin anticoagulation, based on Xa activity inhibition, is an APTT of 46-80 seconds. Add On Lab TestOrdered By: Ruben Buchanan on 02-15-2021 Add On Rejected [facility] [facility] Work Phone: [phone] Comment on above: NO URINE IN LAB Test [facility] by [facility], [address] [place], [address] Work Phone: [phone] Add on test from HISon 02-15 Add on test from HIS Rejected Normal [facility] Comment on above: Result Comment: NO U RINE IN LAB Performed By: #### B MP3, CK3, TROPN, LFT3, HEMDF, NH33, ETOH4 #### [facility] [address] [place] [address] CBCOrdered By: Arpit Buchanan on 02-15-2021 Hematocrit (Bld) [Volume fraction] 37.4 % 35.0 - 47.0 % [facility] Work Phone: [phone] Hemoglobin.gastrointe stinal spec 1 Ql (Stl) 12.9 g/dL 11.7 - 16.0 g/dL [facility] Work Phone: [phone] MCH (RBC) [Entitic mass] 33.5 pg 26.0 - 34.0 pg [facility] Work Phone: [phone] MCHC (RBC) [Mass/Vol] 34.4 % 32.0 - 36.0 % [facility] Work Phone: [phone] MCV (RBC) [Entitic vol] 97.4 fL 79.0 - 98.0 fL [employer] Work Phone: [phone] Platelet distribution width (Bld) [Ratio] 14.1 % 11.5 - 14.5 % [employer] Work Phone: [phone] Platelet mean volume (Bld) [Entitic vol] 7.9 fL 7.4 - 10.4 fL [employer] Work Phone: [phone] Platelets (Bld) [#/Vol] 179 10*3/uL 140 - 440 10*3/uL [employer] Work Phone: [phone] RBC (Bld) [#/Vol] 3.84 10*6/uL 3.80 - 5.2 0 10*6/uL [employer] Work Phone: [phone] WBC (Bld) [#/Vol] 9.5 10*3/uL 3.6 - 10.7 10*3/uL [employer] Work Phone: Test Performed by [facility], [address] [place] [id number] [employer] Work Phone: [phone] CT HEAD WO CONTRASTOrdered B y: Arpit Buchanan on 02-15-2021 [facility]: [id number] Computed Tomography ACCESSION EXAM DATE/TIME PROCEDURE ORDERING PROVIDER [id number] 02/15/2021 12:[address] Head or Brain w/o MD ROXY, ARPIT Watters Contrast CPT code 06964 Reason For Exam (CT Head or Brain w/o Contrast) expressive aphasia Report CLINICAL INFORMATION: Expressive aphasia. Loss of coordination. Transient alteration of awareness. Downgraded stroke team prior to examination. CT scan of the head without intravenous contrast: Volume acquisition CT images were obtained from foramen magnum to vertex without intravenous contrast with axial, coronal and sagittal 2-D reconstructions. Comparison is made to the examination of 12/31/2020. The ventricles are dilated and the sulci and sylvian fissures are prominent with prominent CSF spaces along both frontal convexities similar to the prior examination consistent with cerebral volume loss. A chronic subdural hematoma or hygroma along the right frontal convexity on the prior examination is almost completely resolved. No intra-axial mass lesion or mass-effect is seen. There are physiologic calcifications of the bilateral globus pallidi. No evidence of acute intracranial hemorrhage or other focal abnormal intra-axial densities are identified. The mastoid air cells and included paranasal sinuses are clear. IMPRESSION: 1. Cerebral volume loss similar to prior examination. 2. Nearly complete resolution of chronic subdural hematoma previously seen along the left frontal convexity. 3. No evidence of acute intracranial abnormality. Report Dictated on --- Final --- Dictating Physician: MD BRADY HARLAN Signed Date and Time: 02/15/2021 12:55 pm Signed by: MD BRADY HARLAN Transcribed Date and Time: 02/15/2021 12:56 [facility] Work Phone: [place] Incoming Radiology Results From [facility] - 02/15/2021 12:56 PM EDT [facility]: [id number] Computed Tomography ACCESSION EXAM DATE/TIME PROCEDURE ORDERING PROVIDER [id number] 02/15/2021 12:[address] Head or Brain w/o MD ROXY, ARPIT D Contrast CPT code 75338 Reason For Exam (CT Head or Brain w/o Contrast) expressive aphasia Report CLINICAL INFORMATION: Expressive aphasia. Loss of coordination. Transient alteration of awareness. Downgraded stroke team prior to examination. CT scan of the head without intravenous contrast: Volume acquisition CT images were obtained from foramen magnum to vertex without intravenous contrast with axial, coronal and sagittal 2-D reconstructions. Comparison is made to the examination of 12/31/2020. The ventricles are dilated and the sulci and sylvian fissures are prominent with prominent CSF spaces along both frontal convexities similar to the prior examination consistent with cerebral volume loss. A chronic subdural hematoma or hygroma along the right frontal convexity on the prior examination is almost completely resolved. No intra-axial mass lesion or mass-effect is seen. There are physiologic calcifications of the bilateral globus pallidi. No evidence of acute intracranial hemorrhage or other focal abnormal intra-axial densities are identified. The mastoid air cells and included paranasal sinuses are clear. IMPRESSION: 1. Cerebral volume loss similar to prior examination. 2. Nearly complete resolution of chronic subdural hematoma previously seen along the left frontal convexity. 3. No evidence of acute intracranial abnormality. Report Dictated on --- Final --- Dictating Physician: MD BRADY HARLAN Signed Date and Time: 02/15/2021 12:55 pm Signed by: MD BRADY HARLAN Transcribed Date and Time: 02/15/2021 12:56 [facility] Work Phone: CT Head or Brain w/o Contras ton 02-15-2021 CT Head or Brain w/o Contrast Patient Name: JAZMIN JOHNSON Computed Tomography ACCESSION EXAM DATE/TIME PROCEDURE ORDERING PROVIDER [id number] 02/15/2021 12:[address] Head or Brain w/o MD ROXY, ARPIT D Contrast CPT code 25833 Reason For Exam (CT Head or Brain w/o Contrast) expressive aphasia Report CLINICAL INFORMATION: Expressive aphasia. Loss of coordination. Transient alteration of awareness. Downgraded stroke team prior to examination. CT scan of the head without intravenous contrast: Volume acquisition CT images were obtained from foramen magnum to vertex without intravenous contrast with axial, coronal and sagittal 2-D reconstructions. Comparison is made to the examination of 12/31/2020. The ventricles are dilated and the sulci and sylvian fissures are prominent with prominent CSF spaces along both frontal convexities similar to the prior examination consistent with cerebral volume loss. A chronic subdural hematoma or hygroma along the right frontal convexity on the prior examination is almost completely resolved. No intra-axial mass lesion or mass-effect is seen. There are physiologic calcifications of the bilateral globus pallidi. No evidence of acute intracranial hemorrhage or other focal abnormal intra-axial densities are identified. The mastoid air cells and included paranasal sinuses are clear. IMPRESSION: 1. Cerebral volume loss similar to prior examination. 2. Nearly complete resolution of chronic subdural hematoma previously seen along the left frontal convexity. 3. No evidence of acute intracranial abnormality. Report Dictated on Final Dictating Physician: MD BRADY HARLAN Signed Date and Time: 02/15/2021 12:55 pm Signed by: MD CAITLYN, JEROME Transcribed Date and Time: 02/15/2021 12:56 Normal [facility] CTA Head Neck W WO ContrastO rdered By: Arpti Buchanan on 02-15-2021 [id number] Computed Tomography ACCESSION EXAM DATE/TIME PROCEDURE ORDERING PROVIDER [id number] 02/15/2021 12:34 EDT CTA Head/Neck w/ + w/o MD BUCHANAN MARK D contrast CPT code 82998 62151 Q9967 Reason For Exam (CTA Head/Neck w/ + w/o contrast) expressive aphasia Report CLINICAL INFORMATION: Expressive aphasia. Loss of coordination. Transient alteration of awareness. Downgraded stroke team. CTA brain with intravenous contrast with 3-D reconstructions: Contrast: Isovue-370, [address] angiographic studies of the intracranial vessels were performed following the acquisition of high resolution helical CT data during bolus contrast infusion with axial, coronal and sagittal 2-D reconstructions. The data set was concurrently post processed on the [employer] workstation by ny with reconstructed 3-D shaded surface shaded MPR CT angiographic renderings to better visualize arterial intracranial vessels. A noncontrast CT head examination was obtained and reported separately. CT angiographic study demonstrates patent flow in the right and left internal carotid arteries and basilar artery. There is mild atherosclerotic calcification of the intracavernous portions of both internal carotid arteries. The right and left anterior, middle and posterior cerebral arteries are patent. Neither posterior communicating artery is visualized compatible with normal variation. Anterior communicating artery is patent. There is no significant intracranial stenosis. Flow is demonstrated in slightly asymmetric distal vertebral arteries, left larger than right. There is no evidence of aneurysm or vascular malformation. IMPRESSION: 1. Mild atherosclerotic calcification of the intracavernous portions of both internal carotid arteries without flow-limiting stenosis. 2. No evidence for intracranial arterial stenosis or other significant abnormality. CTA neck with intravenous contrast: Contrast: Isovue-370, 75 mL. Computed Tomography Report Volume acquisition CT images of the extracranial vessels were obtained during bolus intravenous contrast administration with axial, coronal and sagittal 2-D reconstructions. The imaging data set was post processed on the [employer] workstation with 2-D maximum intensity projection (MIP) and multiprojectional 3-D surface shaded reconstructed angiographic images to better visualize gross vascular anatomy. There is patent flow in the right and left common carotid arteries. There is no evidence of arterial dissection. There is patent flow in slightly asymmetric right and left cervical vertebral arteries, left slightly larger than right. There is no evidence of arterial dissection. The right carotid bifurcation demonstrates a single small posterior focus of atherosclerotic calcification without flow limiting stenosis. There is no significant atherosclerotic disease or stenosis. There is no ulceration or dissection. There is patent flow in the upper cervical right internal carotid artery. The left carotid bifurcation demonstrates no significant atherosclerotic disease or stenosis. There is no ulceration or dissection. There is patent flow in the upper cervical left internal carotid artery. IMPRESSION: 1. Minimal atherosclerotic calcification of the posterior aspect of the right common carotid artery bifurcation without flow-limiting stenosis. 2. No significant vascular abnormality. 0% stenosis of the bilateral common and internal carotid arteries by NASCET criteria Report Dictated on --- Final --- Dictating Physician: MD BRADY HARLAN Signed Date and Time: 02/15/2021 1:27 pm Signed by: MD BRADY HARLAN Transcribed Date and Time: 02/15/2021 1:28 [facility] Work Phone: [place] Incoming Radiology Results From [facility] - 02/15/2021 1:28 PM EDT Patient Name: JAZMIN JOHNSON Computed Tomography ACCESSION EXAM DATE/TIME PROCEDURE ORDERING PROVIDER [id number] 02/15/2021 12:34 EDT CTA Head/Neck w/ + w/o MD ROXY, ARPIT Duong contrast CPT code 41423 78543 Q9967 Reason For Exam (CTA Head/Neck w/ + w/o contrast) expressive aphasia Report CLINICAL INFORMATION: Expressive aphasia. Loss of coordination. Transient alteration of awareness. Downgraded stroke team. CTA brain with intravenous contrast with 3-D reconstructions: Contrast: Isovue-370, [address] angiographic studies of the intracranial vessels were performed following the acquisition of high resolution helical CT data during bolus contrast infusion with axial, coronal and sagittal 2-D reconstructions. The data set was concurrently post processed on the [employer] workstation by ny with reconstructed 3-D shaded surface shaded MPR CT angiographic renderings to better visualize arterial intracranial vessels. A noncontrast CT head examination was obtained and reported separately. CT angiographic study demonstrates patent flow in the right and left internal carotid arteries and basilar artery. There is mild atherosclerotic calcification of the intracavernous portions of both internal carotid arteries. The right and left anterior, middle and posterior cerebral arteries are patent. Neither posterior communicating artery is visualized compatible with normal variation. Anterior communicating artery is patent. There is no significant intracranial stenosis. Flow is demonstrated in slightly asymmetric distal vertebral arteries, left larger than right. There is no evidence of aneurysm or vascular malformation. IMPRESSION: 1. Mild atherosclerotic calcification of the intracavernous portions of both internal carotid arteries without flow-limiting stenosis. 2. No evidence for intracranial arterial stenosis or other significant abnormality. CTA neck with intravenous contrast: Contrast: Isovue-370, 75 mL. Computed Tomography Report Volume acquisition CT images of the extracranial vessels were obtained during bolus intravenous contrast administration with axial, coronal and sagittal 2-D reconstructions. The imaging data set was post processed on the [employer] workstation with 2-D maximum intensity projection (MIP) and multiprojectional 3-D surface shaded reconstructed angiographic images to better visualize gross vascular anatomy. There is patent flow in the right and left common carotid arteries. There is no evidence of arterial dissection. There is patent flow in slightly asymmetric right and left cervical vertebral arteries, left slightly larger than right. There is no evidence of arterial dissection. The right carotid bifurcation demonstrates a single small posterior focus of atherosclerotic calcification without flow limiting stenosis. There is no significant atherosclerotic disease or stenosis. There is no ulceration or dissection. There is patent flow in the upper cervical right internal carotid artery. The left carotid bifurcation demonstrates no significant atherosclerotic disease or stenosis. There is no ulceration or dissection. There is patent flow in the upper cervical left internal carotid artery. IMPRESSION: 1. Minimal atherosclerotic calcification of the posterior aspect of the right common carotid artery bifurcation without flow-limiting stenosis. 2. No significant vascular abnormality. 0% stenosis of the bilateral common and internal carotid arteries by NASCET criteria Report Dictated on --- Final --- Dictating Physician: MD BRADY HARLAN Signed Date and Time: 02/15/2021 1:27 pm Signed by: MD BRADY HARLAN Transcribed Date and Time: 02/15/2021 1:28 [facility] Work Phone: CTA Head/Neck w/ + w/o contr marilynn 02-15-2021 CTA Head/Neck w/ + w/o contrast Patient Name: JAZMIN JOHNSON [facility]#: [id number] Computed Tomography ACCESSION EXAM DATE/TIME PROCEDURE ORDERING PROVIDER [id number] 02/15/2021 12:34 EDT CTA Head/Neck w/ + w/o MD ROXY, ARPIT D contrast CPT code 60756 29221 Q9967 Reason For Exam (CTA Head/Neck w/ + w/o contrast) expressive aphasia Report CLINICAL INFORMATION: Expressive aphasia. Loss of coordination. Transient alteration of awareness. Downgraded stroke team. CTA brain with intravenous contrast with 3-D reconstructions: Contrast: Isovue-370, [address] angiographic studies of the intracranial vessels were performed following the acquisition of high resolution helical CT data during bolus contrast infusion with axial, coronal and sagittal 2-D reconstructions. The data set was concurrently post processed on the [employer] workstation by ny with reconstructed 3-D shaded surface shaded MPR CT angiographic renderings to better visualize arterial intracranial vessels. A noncontrast CT head examination was obtained and reported separately. CT angiographic study demonstrates patent flow in the right and left internal carotid arteries and basilar artery. There is mild atherosclerotic calcification of the intracavernous portions of both internal carotid arteries. The right and left anterior, middle and posterior cerebral arteries are patent. Neither posterior communicating artery is visualized compatible with normal variation. Anterior communicating artery is patent. There is no significant intracranial stenosis. Flow is demonstrated in slightly asymmetric distal vertebral arteries, left larger than right. There is no evidence of aneurysm or vascular malformation. IMPRESSION: 1. Mild atherosclerotic calcification of the intracavernous portions of both internal carotid arteries without flow-limiting stenosis. 2. No evidence for intracranial arterial stenosis or other significant abnormality. CTA neck with intravenous contrast: Contrast: Isovue-370, 75 mL. Computed Tomography Report Volume acquisition CT images of the extracranial vessels were obtained during bolus intravenous contrast administration with axial, coronal and sagittal 2-D reconstructions. The imaging data set was post processed on the [employer] workstation with 2-D maximum intensity projection (MIP) and multiprojectional 3-D surface shaded reconstructed angiographic images to better visualize gross vascular anatomy. There is patent flow in the right and left common carotid arteries. There is no evidence of arterial dissection. There is patent flow in slightly asymmetric right and left cervical vertebral arteries, left slightly larger than right. There is no evidence of arterial dissection. The right carotid bifurcation demonstrates a single small posterior focus of atherosclerotic calcification without flow limiting stenosis. There is no significant atherosclerotic disease or stenosis. There is no ulceration or dissection. There is patent flow in the upper cervical right internal carotid artery. The left carotid bifurcation demonstrates no significant atherosclerotic disease or stenosis. There is no ulceration or dissection. There is patent flow in the upper cervical left internal carotid artery. IMPRESSION: 1. Minimal atherosclerotic calcification of the posterior aspect of the right common carotid artery bifurcation without flow-limiting stenosis. 2. No significant vascular abnormality. 0% stenosis of the bilateral common and internal carotid arteries by NASCET criteria Report Dictated on Final Dictating Physician: MD BRADY HARLAN Signed Date and Time: 02/15/2021 1:27 pm Signed by: MD BRADY HARLAN Transcribed Date and Time: 02/15/2021 1:28 Normal [facility] ED Provider Noteon ED Provider Note Emergency Department Encounter [facility] ED Patient: Jazmin Johnson : 1950 Date of Evaluation: 02/15/2021 ED Provider: ARPIT BUCHANAN MD Chief Complaint Chief Complaint Patient presents with ? Altered Mental Status x one day NINILCHIK I wore a N95 mask, gloves, and goggles for the entirety of this encounter. Jazmin Johnson is a 70 y.o. female who presents to the emergency department for evaluation of acute altered mental status. The patient had been in [facility] and went to a court date. Patient was at the court date at 9 AM which is the last that they know she was well but at some point during the court appearance she started having some altered mental status. EMS reported concern that she had access to her medications and that she was going to the restroom and they are not certain if she was taking her trazodone or not. Patient states she has not taken her trazodone since last night. Patient states that she feels fine but recognizes that she is having difficulty with her speech. The patient has reported history of an intracranial hemorrhage in the past. Denies any headache blurry vision double vision or hearing changes. Denies nausea vomiting. Denies chest pain shortness of breath. Denies numbness tingling or weakness in the extremities. Patient's last known well was at 9 AM ROS: At least 10 systems reviewed and otherwise acutely negative except as in the NINILCHIK. Past History Past Medical History: Diagnosis Date ? Alcohol abuse ? Anxiety and depression ? Hyperlipidemia ? Opiate addiction (HCC) reported by family ? Thyroid disease Past Surgical History: Procedure Laterality Date ? COLONOSCOPY ? ENDOSCOPY, COLON, DIAGNOSTIC Social History Socioeconomic History ? Marital status: Single Spouse name: Not on file ? Number of children: Not on file ? Years of education: Not on file ? Highest education level: Not on file Occupational History ? Not on file Social Needs ? Financial resource strain: Not on file ? Food insecurity Worry: Not on file Inability: Not on file ? Transportation needs Medical: Not on file Non-medical: Not on file Tobacco Use ? Smoking status: Current Every Day Smoker Packs/day: 0.50 Years: 40.00 Pack years: 20.00 Types: Cigarettes ? Smokeless tobacco: Never Used ? Tobacco comment: off and on smoking Substance and Sexual Activity ? Alcohol use: Yes Comment: patient states she drinks, but not everyday. Daughter states patient drinks vodka. ? Drug use: Never ? Sexual activity: Not on file Lifestyle ? Physical activity Days per week: Not on file Minutes per session: Not on file ? Stress: Not on file Relationships ? Social connections Talks on phone: Not on file Gets together: Not on file Attends zoroastrianism service: Not on file Active member of club or organization: Not on file Attends meetings of clubs or organizations: Not on file Relationship status: Not on file ? Intimate partner violence Fear of current or ex partner: Not on file Emotionally abused: Not on file Physically abused: Not on file Forced sexual activity: Not on file Other Topics Concern ? Not on file Social History Narrative ? Not on file No family history on file. Medications/Allergies Previous Medications DOCUSATE (COLACE, DULCOLAX) 100 MG CAPS Take 100 mg by mouth 2 times daily DULOXETINE (CYMBALTA) 60 MG EXTENDED RELEASE CAPSULE Take 60 mg by mouth daily FOLIC ACID (FOLVITE) 1 MG TABLET Take 1 tablet by mouth daily HYALURONIC ACID-VITAMIN C (HYALURONIC ACID PO) Take 100 mg by mouth daily LACTOBACILLUS (ACIDOPHILUS PO) Take by mouth daily LEVOTHYROXINE (SYNTHROID) 50 MCG TABLET Take 1 tablet by mouth Daily MELATONIN 3 MG TABS TABLET Take 1 tablet by mouth nightly MULTIPLE VITAMINS-MINERALS (THERAPEUTIC MULTIVITAMIN-MINERALS) TABLET Take 1 tablet by mouth daily QUETIAPINE (SEROQUEL) 50 MG TABLET Take 1 tablet by mouth nightly THIAMINE MONONITRATE 100 MG TABLET Take 1 tablet by mouth daily VITAMIN B-12 500 MCG TABLET Take 1 tablet by mouth daily VITAMIN D (ERGOCALCIFEROL) 1.25 MG (78288 UT) CAPS CAPSULE Take 1 capsule by mouth once a week No Known Allergies Physical Exam ED Triage Vitals [02/15/21 1136] BP Temp Temp src Pulse Resp SpO2 Height Weight (!) 162/77 98.2 ?F (36.8 ?C) -- 110 18 98 % 5' (1.524 m) 125 lb (56.7 kg) General appearance: Well-appearing, no acute distress. Psych: Awake alert to person and knows that she is at the hospital but does not know the year states 2012 states the month is December incorrectly states her age as 59. Pleasant and cooperative. Skin: Warm and dry. Neck: Supple. Cardiovascular: Tachycardia with regular rhythm. Lungs: CTAB, no accessory muscle use, tachypnea, or retractions. Abdomen: Soft, nontender, and nondistended, no rebound, rigidity, or guarding, positive bowel sounds. Extremities: Warm and well perfused. NROM and SILT throughou (more content not included)... [facility] ETHANOLOrdered By: Arpit sheppard on 02-15-2021 Ethanol Lvl <0.010 0.000 - 0.010 g/dL [employer] Work Phone: Comment on above: NOTE: This result is for medical treatment only. Analysis performed using non-forensic procedures. Test Performed by [facility], [address] [place], [place], [place] [address] [employer] Work Phone: Ethanol Serum/Plasmaon 02-15 Ethanol-Serum/Plasma < 0.010 Normal 0.000-0.010 [facility] Comment on above: Result Comment: NOTE : This result is for medical treatment only. Analysis performed using non-forensic procedures. Performed By: #### B MP3, CK3, TROPN, LFT3, HEMDF, NH33, ETOH4 #### [facility] [address] [place] [address] Glucose,Bedsideon 02-15-2021 Glucose [Mass/Vol] 77 mg/dL Normal 70-100 [facility] Comment on above: Result Comment: Test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 Comment on above: Performed By: #### C DP, ALCB, BMPX #### [place] [address] Product Development Intern: Wu England MD MCHC (RBC) [Mass/Vol] 32.1 g/dL Normal 28.4-34.8 [facility] Comment on above: Performed By: #### C DP, ALCB, BMPX #### [place] [address] Product Development Intern: Wu England MD MCV (RBC) [Entitic vol] 103.2 fL High 82.6-102.9 [facility] Comment on above: Performed By: #### C DP, ALCB, BMPX #### [place] [id number] Product Development Intern: Wu England MD Monocytes (Bld) [#/Vol] 0.70 10*3/uL Normal 0.10-1.20 [facility] Comment on above: Performed By: #### C DP, ALCB, BMPX #### [place] [address] Product Development Intern: Wu England MD Monocytes/100 WBC (Bld) 10 % Normal 3-12 [facility] Comment on above: Performed By: #### C DP, ALCB, BMPX #### [place] [address] Product Development Intern: Wu England MD Neutrophil (Seg) 63 % Normal 36-65 [facility] Comment on above: Performed By: #### C DP, ALCB, BMPX #### [place] [address] Product Development Intern: Wu England MD NRBC Automated 0.0 per 100 WBC Normal 0.0 [facility] Comment on above: Performed By: #### C DP, ALCB, BMPX #### [place] [address] Product Development Intern: Wu England MD Platelet mean volume (Bld) [Entitic vol] 10.4 fL Normal 8.1-13.5 [facility] Comment on above: Performed By: #### C DP, ALCB, BMPX #### [place] [address] Product Development Intern: Wu nEgland MD Platelets (Bld) [#/Vol] 195 10*3/uL Normal 138-453 [facility] Comment on above: Performed By: #### C DP, ALCB, BMPX #### [place] [address] Product Development Intern: Wu England MD RBC (Bld) [#/Vol] 3.80 10*6/uL Low 3.95-5.11 [facility] Comment on above: Performed By: #### C DP, ALCB, BMPX #### [place] [address] Product Development Intern: Wu England MD RBC morphology finding Nom (Bld) MACROCYTOSIS PRESENT Normal [facility] Comment on above: Performed By: #### C DP, ALCB, BMPX #### [place] [address] Product Development Intern: Wu England MD WBC (Bld) [#/Vol] 6.9 10*3/uL Normal 3.5-11.3 [facility] Comment on above: Performed By: #### C DP, ALCB, BMPX #### [place] [address] Product Development Intern: Wu England MD Auto Diff Performed NOT REPORTED Normal [facility] Comment on above: Performed By: #### C DP, ALCB, BMPX #### [place] [address] Product Development Intern: Wu England MD Platelet Estimate NOT REPORTED Normal [facility] Comment on above: Performed By: #### C DP, ALCB, BMPX #### [place] [address] Product Development Intern: Wu England MD WBC Morphology NOT REPORTED Normal [facility] Comment on above: Performed By: #### C DP, ALCB, BMPX #### [facility] [address] [place] [address] Product Development Intern: Wu England MD COVID-19, Rapidon 01-14-2021 SARS-CoV-2, Rapid Not Detected Not Detected [facility] Phone: Comment on above: Rapid NAAT: The specimen is NEGATIVE for SARS-CoV-2, the novel coronavirus associated with COVID-19. The ID NOW COVID-19 assay is designed to detect the virus that causes COVID-19 in patients with signs and symptoms of infection who are suspected of COVID-19. An individual without symptoms of COVID-19 and who is not shedding SARS-CoV-2 virus would expect to have a negative (not detected) result in this assay. Negative results should be treated as presumptive and, if inconsistent with clinical signs and symptoms or necessary for patient management, should be tested with an alternative molecular assay. Negative results do not preclude SARS-CoV-2 infection and should not be used as the sole basis for patient management decisions. Fact sheet for Healthcare Providers: https://www.fda.gov/media/771700/download Fact sheet for Patients: https://www.fda.gov/media/699373/download Methodology: Isothermal Nucleic Acid Amplification Specimen Description .NASOPHARYNGEAL SWAB [facility] Phone: CT CERVICAL SPINE WO CONTRAS Ton 01-14-2021 CT CERVICAL SPINE WO CONTRAST EXAMINATION: CT OF THE CERVICAL SPINE WITHOUT CONTRAST 01/13/2021 10:04 pm TECHNIQUE: CT of the cervical spine was performed without the administration of intravenous contrast. Multiplanar reformatted images are provided for review. Dose modulation, iterative reconstruction, and/or weight based adjustment of the mA/kV was utilized to reduce the radiation dose to as low as reasonably achievable. COMPARISON: None. HISTORY: ORDERING SYSTEM PROVIDED HISTORY: Head injury TECHNOLOGIST PROVIDED HISTORY: Head injury Decision Support Exception->Emergency Medical Condition ([place]) Reason for Exam: fall Acuity: Acute Type of Exam: Initial FINDINGS: BONES/ALIGNMENT: There is no acute fracture or traumatic malalignment. C2 on C3 and C3 on C4 anterolisthesis measuring 2-3 mm is present, likely degenerative in etiology. DEGENERATIVE CHANGES: Multifocal [id number] spondylosis is noted within the cervical spine without significant associated central canal stenosis/compromise identified. 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 SOFT TISSUES: There is no prevertebral soft tissue swelling. IMPRESSION: 1. No acute abnormality of the cervical spine. 2. C2 on C3 and C3 on C4 anterolisthesis measuring 2-3 mm, likely degenerative. 3. 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 Interpreted by: Wu Quinones MD Signed by: Wu Quinones MD 01/13/21 Final result Normal [facility] CT CHEST ABDOMEN PELVIS W CO NTRASTon 01-14-2021 CT CHEST ABDOMEN PELVIS W CONTRAST EXAMINATION: CT OF THE CHEST, ABDOMEN, AND PELVIS WITH CONTRAST 01/13/2021 6:17 pm TECHNIQUE: CT of the chest, abdomen and pelvis was performed with the administration of intravenous contrast. Multiplanar reformatted images are provided for review. Dose modulation, iterative reconstruction, and/or weight based adjustment of the mA/kV was utilized to reduce the radiation dose to as low as reasonably achievable. COMPARISON: None HISTORY: ORDERING SYSTEM PROVIDED HISTORY: Trauma TECHNOLOGIST PROVIDED HISTORY: Trauma Reason for Exam: Trauma Acuity: Acute Type of Exam: Initial FINDINGS: Chest: Mediastinum: Normal enhancement of the thoracic aorta and pulmonary arterial system is noted. No acute traumatic injury is present involving the thoracic aorta or heart. Coronary arterial calcifications are present. No evidence of mediastinal hemorrhage is present. No pericardial effusion is noted. Lungs/pleura: Dependent changes are present within the lung bases. No focal area of consolidation, pleural effusion or pneumothorax is present. Minimal fibrotic stranding is present within the right middle lobe. Soft Tissues/Bones: Old fracture deformity is present involving the lateral right 5th rib. Old fracture deformity is present involving the anterior right and left 5th and 6th ribs, with callus formation present. No evidence of an acute displaced rib fracture is present. Abdomen/Pelvis: Organs: Low-attenuation liver lesions are present, largest measuring 2.1 x 1.6 cm, within the posteromedial portion of the right lobe of the liver. Lesions are indeterminate. The spleen, gallbladder, pancreas, and kidneys appear normal, without acute traumatic injury. Nodular thickening of the left adrenal gland is present, consistent with adenomatous changes. Right adrenal gland is normal.. GI/Bowel: Small hiatal hernia is present. Small bowel appears normal. No inflammatory change or wall thickening is present involving the large bowel. The appendix is normal. Pelvis: Uterus is enlarged, multiple fibroids. A large right fundal fibroid measures 7.5 cm and is low in attenuation, suggesting necrosis. Urinary bladder appears normal. A pessary device is in place. Peritoneum/Retroperito neum: No free fluid or free air is present within the abdomen or pelvis. No retroperitoneal hemorrhage is noted. No aneurysm formation, or traumatic injury is present involving the abdominal aorta. No mesenteric hematoma formation is present. Bones/Soft Tissues: No acute osseous injury is present within the abdomen or pelvis. Calcified injection granuloma is present within the left buttock region. Tarlov cyst formation is present within the left sacrum. IMPRESSION: 1. No acute traumatic injury involving the chest abdomen or pelvis 2. Enlarged, fibroid uterus. Largest fibroid measures 7.5 cm, with central low attenuation, consistent with necrosis 3. Indeterminate low-attenuation liver lesions, largest measuring 2.1 x 1.6 cm. Lesions could be further characterized with elective MR imaging. 4. Multiple old bilateral rib fractures Interpreted by: Austin Roca DO Signed by: Austin Roca DO 01/14/21 Final result Normal [facility] 1. No acute traumati c injury involving the chest abdomen or pelvis 2. Enlarged, fibroid uterus. Largest fibroid measures 7.5 cm, with central low attenuation, consistent with necrosis 3. Indeterminate low-attenuation liver lesions, largest measuring 2.1 x 1.6 cm. Lesions could be further characterized with elective MR imaging. 4. Multiple old bilateral rib fractures [facility] Work Phone: EXAMINATION: CT OF T HE CHEST, ABDOMEN, AND PELVIS WITH CONTRAST 01/13/2021 6:17 pm TECHNIQUE: CT of the chest, abdomen and pelvis was performed with the administration of intravenous contrast. Multiplanar reformatted images are provided for review. Dose modulation, iterative reconstruction, and/or weight based adjustment of the mA/kV was utilized to reduce the radiation dose to as low as reasonably achievable. COMPARISON: None HISTORY: ORDERING SYSTEM PROVIDED HISTORY: Trauma TECHNOLOGIST PROVIDED HISTORY: Trauma Reason for Exam: Trauma Acuity: Acute Type of Exam: Initial FINDINGS: Chest: Mediastinum: Normal enhancement of the thoracic aorta and pulmonary arterial system is noted. No acute traumatic injury is present involving the thoracic aorta or heart. Coronary arterial calcifications are present. No evidence of mediastinal hemorrhage is present. No pericardial effusion is noted. Lungs/pleura: Dependent changes are present within the lung bases. No focal area of consolidation, pleural effusion or pneumothorax is present. Minimal fibrotic stranding is present within the right middle lobe. Soft Tissues/Bones: Old fracture deformity is present involving the lateral right 5th rib. Old fracture deformity is present involving the anterior right and left 5th and 6th ribs, with callus formation present. No evidence of an acute displaced rib fracture is present. Abdomen/Pelvis: Organs: Low-attenuation liver lesions are present, largest measuring 2.1 x 1.6 cm, within the posteromedial portion of the right lobe of the liver. Lesions are indeterminate. The spleen, gallbladder, pancreas, and kidneys appear normal, without acute traumatic injury. Nodular thickening of the left adrenal gland is present, consistent with adenomatous changes. Right adrenal gland is normal.. GI/Bowel: Small hiatal hernia is present. Small bowel appears normal. No inflammatory change or wall thickening is present involving the large bowel. The appendix is normal. Pelvis: Uterus is enlarged, multiple fibroids. A large right fundal fibroid measures 7.5 cm and is low in attenuation, suggesting necrosis. Urinary bladder appears normal. A pessary device is in place. Peritoneum/Retroperito neum: No free fluid or free air is present within the abdomen or pelvis. No retroperitoneal hemorrhage is noted. No aneurysm formation, or traumatic injury is present involving the abdominal aorta. No mesenteric hematoma formation is present. Bones/Soft Tissues: No acute osseous injury is present within the abdomen or pelvis. Calcified injection granuloma is present within the left buttock region. Tarlov cyst formation is present within the left sacrum. [facility] Work Phone: [place], [place] Incoming Radiant Results From [facility] - 01/14/2021 1:02 AM EDT EXAMINATION: CT OF THE CHEST, ABDOMEN, AND PELVIS WITH CONTRAST 01/13/2021 6:17 pm TECHNIQUE: CT of the chest, abdomen and pelvis was performed with the administration of intravenous contrast. Multiplanar reformatted images are provided for review. Dose modulation, iterative reconstruction, and/or weight based adjustment of the mA/kV was utilized to reduce the radiation dose to as low as reasonably achievable. COMPARISON: None HISTORY: ORDERING SYSTEM PROVIDED HISTORY: Trauma TECHNOLOGIST PROVIDED HISTORY: Trauma Reason for Exam: Trauma Acuity: Acute Type of Exam: Initial FINDINGS: Chest: Mediastinum: Normal enhancement of the thoracic aorta and pulmonary arterial system is noted. No acute traumatic injury is present involving the thoracic aorta or heart. Coronary arterial calcifications are present. No evidence of mediastinal hemorrhage is present. No pericardial effusion is noted. Lungs/pleura: Dependent changes are present within the lung bases. No focal area of consolidation, pleural effusion or pneumothorax is present. Minimal fibrotic stranding is present within the right middle lobe. Soft Tissues/Bones: Old fracture deformity is present involving the lateral right 5th rib. Old fracture deformity is present involving the anterior right and left 5th and 6th ribs, with callus formation present. No evidence of an acute displaced rib fracture is present. Abdomen/Pelvis: Organs: Low-attenuation liver lesions are present, largest measuring 2.1 x 1.6 cm, within the posteromedial portion of the right lobe of the liver. Lesions are indeterminate. The spleen, gallbladder, pancreas, and kidneys appear normal, without acute traumatic injury. Nodular thickening of the left adrenal gland is present, consistent with adenomatous changes. Right adrenal gland is normal.. GI/Bowel: Small hiatal hernia is present. Small bowel appears normal. No inflammatory change or wall thickening is present involving the large bowel. The appendix is normal. Pelvis: Uterus is enlarged, multiple fibroids. A large right fundal fibroid measures 7.5 cm and is low in attenuation, suggesting necrosis. Urinary bladder appears normal. A pessary device is in place. Peritoneum/Retroperito neum: No free fluid or free air is present within the abdomen or pelvis. No retroperitoneal hemorrhage is noted. No aneurysm formation, or traumatic injury is present involving the abdominal aorta. No mesenteric hematoma formation is present. Bones/Soft Tissues: No acute osseous injury is present within the abdomen or pelvis. Calcified injection granuloma is present within the left buttock region. Tarlov cyst formation is present within the left sacrum. IMPRESSION: 1. No acute traumatic injury involving the chest abdomen or pelvis 2. Enlarged, fibroid uterus. Largest fibroid measures 7.5 cm, with central low attenuation, consistent with necrosis 3. Indeterminate low-attenuation liver lesions, largest measuring 2.1 x 1.6 cm. Lesions could be further characterized with elective MR imaging. 4. Multiple old bilateral rib fractures [facility] Work Phone: CT HEAD WO CONTRASTon 2020 CT HEAD WO CONTRAST EXAMINATION: CT OF THE HEAD WITHOUT CONTRAST 01/14/2021 8:20 am TECHNIQUE: CT of the head was performed without the administration of intravenous contrast. Dose modulation, iterative reconstruction, and/or weight based adjustment of the mA/kV was utilized to reduce the radiation dose to as low as reasonably achievable. COMPARISON: 01/13/2021 HISTORY: ORDERING SYSTEM PROVIDED HISTORY: Trauma TECHNOLOGIST PROVIDED HISTORY: Trauma Reason for Exam: trauma, fall Acuity: Unknown Type of Exam: Unknown FINDINGS: BRAIN/VENTRICLES: There is no mass effect or midline shift. The meek-white differentiation is maintained without evidence of an acute infarct. There is no evidence of hydrocephalus. Bilateral frontoparietal acute subdural hematomas are unchanged in size in the interval, measuring up to 7 mm on the left. Bilateral subdural hygromas adjacent to the cerebellar hemispheres are again noted. Periventricular and subcortical white matter hypoattenuation, consistent with microangiopathic change. Mild parenchymal volume loss. Bilateral basal ganglia mineralization. ORBITS: The visualized portion of the orbits demonstrate no acute abnormality. SINUSES: The visualized paranasal sinuses and mastoid air cells demonstrate no acute abnormality. SOFT TISSUES/SKULL: Right parietal fracture is again noted. IMPRESSION: 1. Acute bilateral subdural hematomas are unchanged in size in the interval. 2. Nondisplaced right parietal fracture is again noted. 3. Microangiopathic change. Interpreted by: Kong Branch MD Signed by: Kong Branch MD 01/14/21 Final result Normal [facility] [place], [place] Incoming Radiant Results From [facility] - 01/14/2021 9:54 AM EDT EXAMINATION: CT OF THE HEAD WITHOUT CONTRAST 01/14/2021 8:20 am TECHNIQUE: CT of the head was performed without the administration of intravenous contrast. Dose modulation, iterative reconstruction, and/or weight based adjustment of the mA/kV was utilized to reduce the radiation dose to as low as reasonably achievable. COMPARISON: 01/13/2021 HISTORY: ORDERING SYSTEM PROVIDED HISTORY: Trauma TECHNOLOGIST PROVIDED HISTORY: Trauma Reason for Exam: trauma, fall Acuity: Unknown Type of Exam: Unknown FINDINGS: BRAIN/VENTRICLES: There is no mass effect or midline shift. The meek-white differentiation is maintained without evidence of an acute infarct. There is no evidence of hydrocephalus. Bilateral frontoparietal acute subdural hematomas are unchanged in size in the interval, measuring up to 7 mm on the left. Bilateral subdural hygromas adjacent to the cerebellar hemispheres are again noted. Periventricular and subcortical white matter hypoattenuation, consistent with microangiopathic change. Mild parenchymal volume loss. Bilateral basal ganglia mineralization. ORBITS: The visualized portion of the orbits demonstrate no acute abnormality. SINUSES: The visualized paranasal sinuses and mastoid air cells demonstrate no acute abnormality. SOFT TISSUES/SKULL: Right parietal fracture is again noted. IMPRESSION: 1. Acute bilateral subdural hematomas are unchanged in size in the interval. 2. Nondisplaced right parietal fracture is again noted. 3. Microangiopathic change. [facility] Work Phone: EXAMINATION: CT OF T HE HEAD WITHOUT CONTRAST 01/14/2021 8:20 am TECHNIQUE: CT of the head was performed without the administration of intravenous contrast. Dose modulation, iterative reconstruction, and/or weight based adjustment of the mA/kV was utilized to reduce the radiation dose to as low as reasonably achievable. COMPARISON: 01/13/2021 HISTORY: ORDERING SYSTEM PROVIDED HISTORY: Trauma TECHNOLOGIST PROVIDED HISTORY: Trauma Reason for Exam: trauma, fall Acuity: Unknown Type of Exam: Unknown FINDINGS: BRAIN/VENTRICLES: There is no mass effect or midline shift. The meek-white differentiation is maintained without evidence of an acute infarct. There is no evidence of hydrocephalus. Bilateral frontoparietal acute subdural hematomas are unchanged in size in the interval, measuring up to 7 mm on the left. Bilateral subdural hygromas adjacent to the cerebellar hemispheres are again noted. Periventricular and subcortical white matter hypoattenuation, consistent with microangiopathic change. Mild parenchymal volume loss. Bilateral basal ganglia mineralization. ORBITS: The visualized portion of the orbits demonstrate no acute abnormality. SINUSES: The visualized paranasal sinuses and mastoid air cells demonstrate no acute abnormality. SOFT TISSUES/SKULL: Right parietal fracture is again noted. [facility] Phone: 1. Acute bilateral subdural hematomas are unchanged in size in the interval. 2. Nondisplaced right parietal fracture is again noted. 3. Microangiopathic change. [facility] Phone: CT HEAD WO CONTRAST ADDENDUM: Outside images are not available however based on the outside report which mentions chronic subdural, the subdural hematomas are acute and recent and related to current event. Critical results were called by Dr. Lisa Raymond MD to [facility] RICKETTS on 01/13/2021 at 22:15. Electronically Signed by: LISA RAYMOND on SatJan 13, 2021 10:19:07 PM EDT EXAMINATION: CT OF THE HEAD WITHOUT CONTRAST 01/13/2021 9:12 pm TECHNIQUE: CT of the head was performed without the administration of intravenous contrast. Dose modulation, iterative reconstruction, and/or weight based adjustment of the mA/kV was utilized to reduce the radiation dose to as low as reasonably achievable. COMPARISON: None. HISTORY: ORDERING SYSTEM PROVIDED HISTORY: Head injury TECHNOLOGIST PROVIDED HISTORY: Head injury Decision Support Exception->Emergency Medical Condition (MA) Reason for Exam: fall Acuity: Acute Type of Exam: Initial FINDINGS: There are bilateral frontoparietal acute subdural hematomas with greatest thickness measuring 6 mm in the left superior frontal region and 3 mm on the right superior frontal region.Bilateral subdural hygromas surrounding the cerebellar hemisphere, measuring 9 mm on the left side and 5 mm on the right side. There is no acute infarction, intraparenchymal hemorrhage or intracranial mass lesion. No midline shift is noted. There are mild nonspecific foci of periventricular and subcortical cerebral white matter hypodensity, most likely representing chronic microangiopathic disease in this age group. The brain parenchyma is otherwise normal. The cerebellar tonsils are in normal position. The ventricles, sulci, and cisterns are mildly prominent suggestive of mild generalized volume loss. The globes and orbits are within normal limits. The visualized extracranial structures including paranasal sinuses and mastoid air cells are unremarkable. There is a fracture involving the right parietal bone. IMPRESSION: Bilateral frontoparietal acute subdural hematomas with greatest thickness measuring 6 mm in the left superior frontal region and 3 mm on the right superior frontal region. Based on the referring physician the patient has a recent brain imaging which noticed subdural hematoma, once that examination becomes available an addendum will be made. Bilateral subdural hygromas surrounding the cerebellar hemisphere, measuring 9 mm on the left side and 5 mm on the right side. Fracture involving right parietal bone. No evidence for acute territorial infarction or intracranial mass lesion. Mild chronic microangiopathic ischemic disease. Mild generalized volume loss. The findings were sent to the Radiology Results Communication [facility] at 9:49 pm on 01/13/2021to be communicated to a licensed caregiver. Interpreted by: Lisa Ramyond MD Signed by: Lisa Raymond MD 01/13/21 Edited Result - FINAL Normal [facility] CT LUMBAR SPINE TRAUMA RECON STRUCTIONon 01-14-2021 CT LUMBAR SPINE TRAUMA RECONSTRUCTION EXAMINATION: CT OF THE LUMBAR SPINE WITHOUT CONTRAST 01/13/2021 TECHNIQUE: CT of the lumbar spine was performed without the administration of intravenous contrast. Multiplanar reformatted images are provided for review. Dose modulation, iterative reconstruction, and/or weight based adjustment of the mA/kV was utilized to reduce the radiation dose to as low as reasonably achievable. COMPARISON: None HISTORY: ORDERING SYSTEM PROVIDED HISTORY: TRAUMA TECHNOLOGIST PROVIDED HISTORY: trauma Reason for Exam: Trauma Acuity: Acute Type of Exam: Initial FINDINGS: BONES/ALIGNMENT: There is normal alignment of the spine. The vertebral body heights are maintained. No osseous destructive lesion is seen. DEGENERATIVE CHANGES: No significant degenerative changes of the lumbar spine. SOFT TISSUES/RETROPERITONEU M: No paraspinal mass is seen. IMPRESSION: No evidence of an acute fracture or traumatic malalignment involving the lumbar spine Interpreted by: Austin Roca DO Signed by: Austin Roca DO 01/14/21 Final result Normal [facility] EXAMINATION: CT OF T HE LUMBAR SPINE WITHOUT CONTRAST 01/13/2021 TECHNIQUE: CT of the lumbar spine was performed without the administration of intravenous contrast. Multiplanar reformatted images are provided for review. Dose modulation, iterative reconstruction, and/or weight based adjustment of the mA/kV was utilized to reduce the radiation dose to as low as reasonably achievable. COMPARISON: None HISTORY: ORDERING SYSTEM PROVIDED HISTORY: TRAUMA TECHNOLOGIST PROVIDED HISTORY: trauma Reason for Exam: Trauma Acuity: Acute Type of Exam: Initial FINDINGS: BONES/ALIGNMENT: There is normal alignment of the spine. The vertebral body heights are maintained. No osseous destructive lesion is seen. DEGENERATIVE CHANGES: No significant degenerative changes of the lumbar spine. SOFT TISSUES/RETROPERITONEU M: No paraspinal mass is seen. [facility] Phone: [place], [place] Incoming Radiant Results From [facility] - 01/14/2021 12:49 AM EDT EXAMINATION: CT OF THE LUMBAR SPINE WITHOUT CONTRAST 01/13/2021 TECHNIQUE: CT of the lumbar spine was performed without the administration of intravenous contrast. Multiplanar reformatted images are provided for review. Dose modulation, iterative reconstruction, and/or weight based adjustment of the mA/kV was utilized to reduce the radiation dose to as low as reasonably achievable. COMPARISON: None HISTORY: ORDERING SYSTEM PROVIDED HISTORY: TRAUMA TECHNOLOGIST PROVIDED HISTORY: trauma Reason for Exam: Trauma Acuity: Acute Type of Exam: Initial FINDINGS: BONES/ALIGNMENT: There is normal alignment of the spine. The vertebral body heights are maintained. No osseous destructive lesion is seen. DEGENERATIVE CHANGES: No significant degenerative changes of the lumbar spine. SOFT TISSUES/RETROPERITONEU M: No paraspinal mass is seen. IMPRESSION: No evidence of an acute fracture or traumatic malalignment involving the lumbar spine [facility] Phone: No evidence of an acute fracture or traumatic malalignment involving the lumbar spine [facility] Phone: CT THORACIC SPINE TRAUMA REC ONSTRUCTIONon 01-14-2021 CT THORACIC SPINE TRAUMA RECONSTRUCTION EXAMINATION: CT OF THE THORACIC SPINE WITHOUT CONTRAST 01/13/2021 6:17 pm: TECHNIQUE: CT of the thoracic spine was performed without the administration of intravenous contrast. Multiplanar reformatted images are provided for review. Dose modulation, iterative reconstruction, and/or weight based adjustment of the mA/kV was utilized to reduce the radiation dose to as low as reasonably achievable. COMPARISON: None. HISTORY: ORDERING SYSTEM PROVIDED HISTORY: trauma TECHNOLOGIST PROVIDED HISTORY: trauma Reason for Exam: Trauma Acuity: Acute Type of Exam: Initial FINDINGS: BONES/ALIGNMENT: There is normal alignment of the spine. The vertebral body heights are maintained. No osseous destructive lesion is seen. DEGENERATIVE CHANGES: No gross spinal canal stenosis or bony neural foraminal narrowing of the thoracic spine. SOFT TISSUES: No paraspinal mass is seen. IMPRESSION: No evidence of an acute fracture or traumatic malalignment involving the thoracic spine Interpreted by: Austin Roca DO Signed by: Austin Roca DO 01/14/21 Final result Normal [facility] EXAMINATION: CT OF T HE THORACIC SPINE WITHOUT CONTRAST 01/13/2021 6:17 pm: TECHNIQUE: CT of the thoracic spine was performed without the administration of intravenous contrast. Multiplanar reformatted images are provided for review. Dose modulation, iterative reconstruction, and/or weight based adjustment of the mA/kV was utilized to reduce the radiation dose to as low as reasonably achievable. COMPARISON: None. HISTORY: ORDERING SYSTEM PROVIDED HISTORY: trauma TECHNOLOGIST PROVIDED HISTORY: trauma Reason for Exam: Trauma Acuity: Acute Type of Exam: Initial FINDINGS: BONES/ALIGNMENT: There is normal alignment of the spine. The vertebral body heights are maintained. No osseous destructive lesion is seen. DEGENERATIVE CHANGES: No gross spinal canal stenosis or bony neural foraminal narrowing of the thoracic spine. SOFT TISSUES: No paraspinal mass is seen. [facility] Phone: No evidence of an acute fracture or traumatic malalignment involving the thoracic spine [facility] Phone: [place], [place] Incoming Radiant Results From [facility] - 01/14/2021 12:52 AM EDT EXAMINATION: CT OF THE THORACIC SPINE WITHOUT CONTRAST 01/13/2021 6:17 pm: TECHNIQUE: CT of the thoracic spine was performed without the administration of intravenous contrast. Multiplanar reformatted images are provided for review. Dose modulation, iterative reconstruction, and/or weight based adjustment of the mA/kV was utilized to reduce the radiation dose to as low as reasonably achievable. COMPARISON: None. HISTORY: ORDERING SYSTEM PROVIDED HISTORY: trauma TECHNOLOGIST PROVIDED HISTORY: trauma Reason for Exam: Trauma Acuity: Acute Type of Exam: Initial FINDINGS: BONES/ALIGNMENT: There is normal alignment of the spine. The vertebral body heights are maintained. No osseous destructive lesion is seen. DEGENERATIVE CHANGES: No gross spinal canal stenosis or bony neural foraminal narrowing of the thoracic spine. SOFT TISSUES: No paraspinal mass is seen. IMPRESSION: No evidence of an acute fracture or traumatic malalignment involving the thoracic spine [facility] Work Phone: Liver Profileon 01-14-2021 Albumin [Mass/Vol] 3.8 g/dL Normal 3.5-5.2 [facility] Comment on above: Performed By: #### L IVP #### [address] [address] Product Development Intern: Wu England MD Albumin/Glob Ratio 1.7 Normal 1.0-2.5 [facility] Comment on above: Performed By: #### L IVP #### [address] [id number] Product Development Intern: Wu England MD Alkaline Phos 76 U/L Normal 35-104 [facility] Comment on above: Performed By: #### L IVP #### [address] [address] Product Development Intern: Wu England MD ALT [Catalytic activity/Vol] 12 U/L Normal 5-33 [facility] Comment on above: Performed By: #### L IVP #### [id number] [place], [place] [id number] Product Development Intern: Wu England MD AST [Catalytic activity/Vol] 25 U/L Normal <32 [facility] Comment on above: Performed By: #### L IVP #### [address] [id number] Product Development Intern: Wu England MD Bilirubin [Mass/Vol] 0.11 mg/dL Low 0.3-1.2 [facility] Comment on above: Performed By: #### L IVP #### [place] [address] Product Development Intern: Wu England MD Bilirubin, Indirect CANNOT BE CALCULATED Normal 0.00-1 .00 [facility] Comment on above: Performed By: #### L IVP #### [place] [address] Product Development Intern: Wu England MD Bilirubin.indirect [Mass/Vol] mg/dL Normal <0.31 [facility] Comment on above: Performed By: #### L IVP #### [place] [address] Product Development Intern: Wu England MD Protein [Mass/Vol] 6.0 g/dL Low 6.4-8.3 [facility] Comment on above: Performed By: #### L IVP #### [place] [address] Product Development Intern: Wu England MD MRSA DNA Probe, Nasalon - MRSA, DNA, Nasal NEGATIVE: MRSA DNA n ot detected by nucleic acid amplification. NEGATIVE: MRSA DNA not detected by nucleic acid amplificati [facility] Phone: Comment on above: Results should be used as an adjunct to nosocomial control efforts to identify patients needing enhanced precautions. The test is not intended to identify patients with staphylococcal infections. Results should not be used to guide or monitor treatment for MRSA infections. Specimen Description .NASAL SWAB [facility] Phone: MRSA, DNA, Nasalon MRSA, DNA, Nasal NEGATIVE: MRSA DNA n ot detected by nucleic acid amplification. Normal NMRSAA [facility] Comment on above: Result Comment: Results should be used as an adjunct to nosocomial control efforts to identify patients needing enhanced precautions. The test is not intended to identify patients with staphylococcal infections. Results should not be used to guide or monitor treatment for MRSA infections. Performed By: #### C DP ALCB, BMPX #### [address] [address] Product Development Intern: Wu England MD Specimen Description .NASAL SWAB Normal [facility] Comment on above: Performed By: #### C DP ALCB, BMPX #### [place] [id number] Product Development Intern: Wu England MD Magnesiumon 01-14-2021 Magnesium [Mass/Vol] 1.7 mg/dL Normal 1.6-2.6 [facility] Comment on above: Performed By: #### C JI BABINB, BMPX #### [place] [address] Product Development Intern: Wu England MD Magnesium [Mass/Vol] 1.7 mg/dL 1.6 - 2.6 mg/dL [facility] Phone: Phosphoruson 01-14-2021 Phosphate [Mass/Vol] 3.2 mg/dL 2.6 - 4.5 mg/dL [facility] Phone: Phosphorus, Inorg.on 021 Phosphorus, Inorg. 3.2 mg/dL Normal 2.6-4.5 [facility] Comment on above: Performed By: #### C DP ALCB, BMPX #### [place] [id number] Product Development Intern: Wu England MD [id number] 01-14-2021 SARS-CoV-2 (COVID-19) RNA CY+probe Ql (Unsp spec) Not detected Normal NOTDET [facility] Comment on above: Result Comment: Rapid NAAT: The specimen is NEGATIVE for SARS-CoV-2, the novel coronavirus associated with COVID-19. The ID NOW COVID-19 assay is designed to detect the virus that causes COVID-19 in patients with signs and symptoms of infection who are suspected of COVID-19. An individual without symptoms of COVID-19 and who is not shedding SARS-CoV-2 virus would expect to have a negative (not detected) result in this assay. Negative results should be treated as presumptive and, if inconsistent with clinical signs and symptoms or necessary for patient management, should be tested with an alternative molecular assay. Negative results do not preclude SARS-CoV-2 infection and should not be used as the sole basis for patient management decisions. Fact sheet for Healthcare Providers: https://www.fda.gov/media/982694/download Fact sheet for Patients: https://www.fda.gov/media/232056/download Methodology: Isothermal Nucleic Acid Amplification Performed By: #### C OVRB #### [place] [address] Product Development Intern: Knetrell Reeves MD Trauma Profileon 01-14-2021 aPTT Coag (Bld) [Time] 22.5 s Normal 20.5-30.5 [facility] Comment on above: Result Comment: IV Heparin Therapy Range: 48.6-77.8 Performed By: #### C PUMA BABIN, BMPX #### [place] [address] Product Development Intern: Wu England MD INR Coag (PPP) [Relative time] 0.9 {INR} Normal [facility] Comment on above: Result Comment: Therapeutic Range: Moderate Anticoagulant Intensity: INR = 2.0-3.0 High Anticoagulant Intensity: INR = 2.5-3.5 Performed By: #### C JI BABINB, BMPX #### [place] [id number] Product Development Intern: Wu England MD PT Coag (PPP) [Time] 10.0 s Normal 9.1-12.3 [facility] Comment on above: Performed By: #### C DP, ALCB, BMPX #### [place] [address] Product Development Intern: Wu England MD (cont.) [facility] Comment on above: Result Comment: Aver age GFR for 60-69 years old: 85 mL/min/1.73sq m Chronic Kidney Disease: <60 mL/min/1.73sq m Kidney failure: <15 mL/min/1.73sq m eGFR calculated using average adult body mass. Additional eGFR calculator available at: http://www.Avisena/multiple_crcl_2011.htm Performed By: #### C DP, ALCB, BMPX #### [place] [address] Product Development Intern: Wu England MD Anion gap [Moles/Vol] 13 mmol/L Normal 9-17 [facility] Comment on above: Performed By: #### C DP, ALCB, BMPX #### [place] [address] Product Development Intern: Wu England MD Chloride [Moles/Vol] 105 mmol/L Normal 98-107 [facility] Comment on above: Performed By: #### C DP, ALCB, BMPX #### [place] [address] Product Development Intern: Wu England MD CO2 [Moles/Vol] 21 mmol/L Normal 20-31 [facility] Comment on above: Performed By: #### C DP, ALCB, BMPX #### [place] [id number] Product Development Intern: Wu Egnland MD Creatinine [Mass/Vol] 0.46 mg/dL Low 0.50-0.90 [facility] Comment on above: Performed By: #### C DP, ALCB, BMPX #### [address] [address] Product Development Intern: Wu England MD Ethanol [Mass/Vol] 171 mg/dL High <10 [facility] Comment on above: Performed By: #### C DP, ALCB, BMPX #### [address] [address] Product Development Intern: Wu England MD Ethanol percent 0.171 % High <0.010 [facility] Comment on above: Performed By: #### C DP, ALCB, BMPX #### [place] [address] Product Development Intern: Wu England MD GFR, Amer >60 Normal >60 [facility] Comment on above: Performed By: #### C DP, ALCB, BMPX #### [address] [address] Product Development Intern: Wu England MD GFR,non Amer >60 Normal >60 [facility] Comment on above: Performed By: #### C DP, ALCB, BMPX #### [address] [address] Product Development Intern: Wu England MD Glucose [Mass/Vol] 89 mg/dL Normal 70-99 [facility] Comment on above: Performed By: #### C DP, ALCB, BMPX #### [address] [id number] Product Development Intern: Wu England MD Potassium [Moles/Vol] 4.0 mmol/L Normal 3.7-5.3 [facility] Comment on above: Performed By: #### C DP, ALCB, BMPX #### [place] [address] Product Development Intern: Wu England MD Sodium [Moles/Vol] 139 mmol/L Normal 135-144 [facility] Comment on above: Performed By: #### C DP, ALCB, BMPX #### [place] [address] Product Development Intern: Wu England MD Urea nitrogen [Mass/Vol] 7 mg/dL Low 8-23 [facility] Comment on above: Performed By: #### C DP, ALCB, BMPX #### [place] [address] Product Development Intern: Wu England MD Body Temp. 37.0 [facility] Comment on above: Performed By: #### C DP, ALCB, BMPX #### [place] [address] Product Development Intern: Wu England MD Carboxy Hgb 2.1 % Normal 0-5 [facility] Comment on above: Result Comment: Reference Range: Non-Smokers 0-2% Average Smoker 2-4% Heavy Smoker <10% Performed By: #### C DP, ALCB, BMPX #### [place] [address] Product Development Intern: Wu England MD FIO2 VENOUS Normal [facility] Comment on above: Performed By: #### C DP, ALCB, BMPX #### [place] [address] Product Development Intern: Wu England MD HCO3 (Bld) [Moles/Vol] 24.3 mmol/L Normal 24-30 [facility] Comment on above: Performed By: #### C DP, ALCB, BMPX #### [place] [address] Product Development Intern: Wu England MD Negative Base Excess 0.6 mmol/L Normal 0.0-2.0 [facility] Comment on above: Performed By: #### C DP, ALCB, BMPX #### [place] [address] Product Development Intern: Wu England MD Oxygen (Bld) [Partial pressure] 82.0 mm[Hg] High 30-50 [facility] Comment on above: Performed By: #### C DP, ALCB, BMPX #### [place] [address] Product Development Intern: Wu England MD Oxygen saturation in Blood 94.4 % High 60.0-85.0 [facility] Comment on above: Performed By: #### C DP, ALCB, BMPX #### [place] [address] Product Development Intern: Wu England MD pCO2 43.4 Normal 39-55 [facility] Comment on above: Performed By: #### C DP, ALCB, BMPX #### [place] [address] Product Development Intern: Wu England MD pH (Bld) 7.367 [pH] Normal 7.320-7.420 [facility] Comment on above: Performed By: #### C DP, ALCB, BMPX #### [place] [address] Product Development Intern: Wu England MD Erythrocyte distribution width (RBC) [Ratio] 12.9 % Normal 11.8-14.4 [facility] Comment on above: Performed By: #### C DP, ALCB, BMPX #### [place] [address] Product Development Intern: Wu England MD Hematocrit (Bld) [Volume fraction] 41.8 % Normal 36.3-47.1 [facility] Comment on above: Performed By: #### C DP, ALCB, BMPX #### [place] [address] Product Development Intern: Wu England MD Hemoglobin (Bld) [Mass/Vol] 13.3 g/dL Normal 11.9-15.1 [facility] Comment on above: Performed By: #### C DP, ALCB, BMPX #### [place] [address] Product Development Intern: Wu England MD MCH (RBC) [Entitic mass] 32.5 pg Normal 25.2-33.5 [facility] Comment on above: Performed By: #### C DP, ALCB, BMPX #### [place] [address] Product Development Intern: Wu England MD MCHC (RBC) [Mass/Vol] 31.8 g/dL Normal 28.4-34.8 [facility] Comment on above: Performed By: #### C DP, ALCB, BMPX #### [place] [address] Product Development Intern: Wu England MD MCV (RBC) [Entitic vol] 102.2 fL Normal 82.6-102.9 [facility] Comment on above: Performed By: #### C DP ALCB, BMPX #### [place] [address] Product Development Intern: Wu England MD NRBC Automated 0.0 per 100 WBC Normal 0.0 [facility] Comment on above: Performed By: #### C DP, ALCB, BMPX #### [place] [address] Product Development Intern: Wu England MD Platelet mean volume (Bld) [Entitic vol] 10.2 fL Normal 8.1-13.5 [facility] Comment on above: Performed By: #### C DP ALCB, BMPX #### [place] [address] Product Development Intern: Wu England MD Platelets (Bld) [#/Vol] 206 10*3/uL Normal 138-453 [facility] Comment on above: Performed By: #### C DP ALCB, BMPX #### [place] [address] Product Development Intern: Wu England MD RBC (Bld) [#/Vol] 4.09 10*6/uL Normal 3.95-5.11 [facility] Comment on above: Performed By: #### C DP, ALCB, BMPX #### [place] [address] Product Development Intern: Wu England MD WBC (Bld) [#/Vol] 7.8 10*3/uL Normal 3.5-11.3 [facility] Comment on above: Performed By: #### C DP, ALCB, BMPX #### [address] [address] Product Development Intern: Wu England MD Darrick Test NOT REPORTED Normal [facility] Comment on above: Performed By: #### C DP, ALCB, BMPX #### [address] [address] Product Development Intern: Wu England MD Methemoglobin NOT REPORTED Normal 0.0-1.5 [facility] Comment on above: Performed By: #### C DP, ALCB, BMPX #### [place] [address] Product Development Intern: Wu England MD Mode NOT REPORTED Normal [facility] Comment on above: Performed By: #### C DP, ALCB, BMPX #### [place] [address] Product Development Intern: Wu England MD Notification Time NOT REPORTED Normal [facility] Comment on above: Performed By: #### C DP, ALCB, BMPX #### [address] [address] Product Development Intern: Wu England MD Notification: NOT REPORTED Normal [facility] Comment on above: Performed By: #### C DP, ALCB, BMPX #### [address] [address] Product Development Intern: Wu England MD O2 Device/Flow/% NOT REPORTED Normal [facility] Comment on above: Performed By: #### C DP, ALCB, BMPX #### [address] [address] Product Development Intern: Wu England MD Oxyhemoglobin NOT REPORTED Normal 95.0-98.0 [facility] Comment on above: Performed By: #### C DP, ALCB, BMPX #### [place] [address] Product Development Intern: Wu England MD Pco2 Adj'd for Temp. NOT REPORTED Normal 39-55 [facility] Comment on above: Performed By: #### C DP, ALCB, BMPX #### [place] [address] Product Development Intern: Wu England MD PEEP/CPAP NOT REPORTED Normal [facility] Comment on above: Performed By: #### C DP, ALCB, BMPX #### [place] [address] Product Development Intern: Wu England MD pH Adjst'd for Temp. NOT REPORTED Normal 7.320-7.420 [facility] Comment on above: Performed By: #### C DP, ALCB, BMPX #### [place] [address] Product Development Intern: Wu England MD pO2 Adj'd for Temp. NOT REPORTED Normal 30-50 [facility] Comment on above: Performed By: #### C DP, ALCB, BMPX #### [place] [address] Product Development Intern: Wu England MD Positive Base Excess NOT REPORTED Normal 0.0-2.0 [facility] Comment on above: Performed By: #### C DP, ALCB, BMPX #### [place] [address] Product Development Intern: Wu England MD PSV NOT REPORTED Normal [facility] Comment on above: Performed By: #### C DP, ALCB, BMPX #### [address] [address] Product Development Intern: Wu England MD Pt. Position NOT REPORTED Normal [facility] Comment on above: Performed By: #### C DP, ALCB, BMPX #### [place] [address] Product Development Intern: Wu England MD Respiratory Rate NOT REPORTED Normal [facility] Comment on above: Performed By: #### C DP, ALCB, BMPX #### [place] [address] Product Development Intern: Wu England MD Set Rate NOT REPORTED Normal [facility] Comment on above: Performed By: #### C DP, ALCB, BMPX #### [place] [address] Product Development Intern: Wu England MD Site Drawn NOT REPORTED Normal [facility] Comment on above: Performed By: #### C DP, ALCB, BMPX #### [address] [address] Product Development Intern: Wu England MD Staging: NOT REPORTED Normal [facility] Comment on above: Performed By: #### C DP, ALCB, BMPX #### [address] [address] Product Development Intern: Wu England MD Text for Respiratory NOT REPORTED Normal [facility] Comment on above: Performed By: #### C DP, ALCB, BMPX #### [place] [address] Product Development Intern: Wu England MD Total Hb NOT REPORTED Normal 12.0-16.0 [facility] Comment on above: Performed By: #### C DP, ALCB, BMPX #### [place] [address] Product Development Intern: Wu England MD Total Rate NOT REPORTED Normal [facility] Comment on above: Performed By: #### C DP, ALCB, BMPX #### [place] [address] Product Development Intern: Wu England MD VT NOT REPORTED Normal [facility] Comment on above: Performed By: #### C DP, ALCB, BMPX #### [place] [address] Product Development Intern: Wu England MD APTTon 01-13-2021 aPTT Coag (Bld) [Time] 21.5 s Normal 21.3-31.3 [facility] Comment on above: Performed By: #### P T, PTT #### [place] [address] Product Development Intern: Wu England MD aPTT Coag (Bld) [Time] 21.5 s [facility] Work Phone: Basic Metab w/rfx MGon 01-13 (cont.) Normal [facility] Comment on above: Result Comment: Aver age GFR for 60-69 years old: 85 mL/min/1.73sq m Chronic Kidney Disease: <60 mL/min/1.73sq m Kidney failure: <15 mL/min/1.73sq m eGFR calculated using average adult body mass. Additional eGFR calculator available at: http://www.Avisena/multiple_crcl_2012.htm Performed By: #### C DP, ALCB, BMPX #### [place] [address] Product Development Intern: Wu England MD Anion gap [Moles/Vol] 11 mmol/L Normal 9-17 [facility] Comment on above: Performed By: #### C DP, ALCB, BMPX #### [place] [address] Product Development Intern: Wu England MD Calcium [Mass/Vol] 9.2 mg/dL Normal 8.6-10.4 [facility] Comment on above: Performed By: #### C DP, ALCB, BMPX #### [place] [address] Product Development Intern: Wu England MD Chloride [Moles/Vol] 104 mmol/L Normal 98-107 [facility] Comment on above: Performed By: #### C DP, ALCB, BMPX #### [place] [address] Product Development Intern: Wu England MD CO2 [Moles/Vol] 26 mmol/L Normal 20-31 [facility] Comment on above: Performed By: #### C DP, ALCB, BMPX #### [place] [address] Product Development Intern: Wu England MD Creatinine [Mass/Vol] 0.64 mg/dL Normal 0.50-0.90 [facility] Comment on above: Performed By: #### C DP, ALCB, BMPX #### [place] [address] Product Development Intern: Wu England MD GFR, Amer >60 Normal >60 [facility] Comment on above: Performed By: #### C DP, ALCB, BMPX #### [address] [id number] Product Development Intern: Wu England MD GFR,non Amer >60 Normal >60 [facility] Comment on above: Performed By: #### C DP, ALCB, BMPX #### [place] [address] Product Development Intern: Wu England MD Glucose [Mass/Vol] 121 mg/dL High 70-99 [facility] Comment on above: Performed By: #### C DP, ALCB, BMPX #### [place] [address] Product Development Intern: Wu England MD Potassium [Moles/Vol] 3.8 mmol/L Normal 3.7-5.3 [facility] Comment on above: Performed By: #### C DP, ALCB, BMPX #### [place] [address] Product Development Intern: Wu England MD Sodium [Moles/Vol] 141 mmol/L Normal 135-144 [facility] Comment on above: Performed By: #### C DP, ALCB, BMPX #### [place] [address] Product Development Intern: Wu England MD Urea nitrogen [Mass/Vol] 9 mg/dL Normal 8-23 [facility] Comment on above: Performed By: #### C DP, ALCB, BMPX #### [place] [address] Product Development Intern: Wu England MD BUN/CRE Ratio NOT REPORTED Normal 9-20 [facility] Comment on above: Performed By: #### C DP, ALCB, BMPX #### [facility] [address] [place], [place] [id number] Product Development Intern: Wu England MD Staging: NOT REPORTED Normal [facility] Comment on above: Performed By: #### C DP, ALCB, BMPX #### [facility] [address] [place], [place] [id number] Product Development Intern: Wu England MD Basic Metabolic Panel w/ Ref sandra to MG 01-13-2021 Anion gap [Moles/Vol] 11 mmol/L 9 - 17 mmol/L [facility] Phone: Bun/Cre Ratio NOT REPORTED [employer] [facility] Work Phone: Calcium [Mass/Vol] 9.2 mg/dL 8.6 - 10. 4 mg/dL [facility] Phone: Chloride [Moles/Vol] 104 mmol/L 98 - 107 mmol/L [facility] Phone: CO2 [Moles/Vol] 26 mmol/L 20 - 31 mmol/L [facility] Phone: Creatinine [Mass/Vol] 0.64 mg/dL 0.50 - 0.90 mg/dL [facility] Phone: GFR >60 >60 mL/min [employer] Phone: GFR Non- >60 >60 mL/min [facility] Phone: GFR/1.73 sq M predicted among non-blacks MDRD (S/P/Bld) [Vol rate/Area] [facility] Phone: Comment on above: Average GFR for 60-6 9 years old: 85 mL/min/1.73sq m Chronic Kidney Disease: <60 mL/min/1.73sq m Kidney failure: <15 mL/min/1.73sq m eGFR calculated using average adult body mass. Additional eGFR calculator available at: http://www.Avisena/multiple_crcl_2012.htm GFR/1.73 sq M predicted among non-blacks MDRD (S/P/Bld) [Vol rate/Area] NOT REPORTED [facility] Phone: Glucose [Mass/Vol] 121 mg/dL High 70 - 99 mg/dL [facility] Phone: Potassium [Moles/Vol] 3.8 mmol/L 3.7 - 5.3 mmol/L [facility] Phone: Sodium [Moles/Vol] 141 mmol/L 135 - 144 mmol/L [facility] Phone: Urea nitrogen [Mass/Vol] 9 mg/dL 8 - 23 mg/dL [facility] Phone: CBC Auto Differentialon 04-0 -2020 Basophils (Bld) [#/Vol] 0.10 10*3/uL [facility] Phone: Basophils/100 WBC (Bld) 1 % 0 - 2 % [facility] Phone: Differential Type NOT REPORTED [facility] Phone: Eosinophils (Bld) [#/Vol] 0.10 10*3/uL [facility] Phone: Eosinophils/100 WBC (Bld) 2 % 1 - 4 % [facility] Phone: Erythrocyte distribution width (RBC) [Ratio] 13.6 % 12.5 - 15.4 % [facility] Phone: Hematocrit (Bld) [Volume fraction] 41.8 % 36 - 46 % [facility] Phone: Hemoglobin (Bld) [Mass/Vol] 13.8 g/dL 12.0 - 16.0 g/dL [facility] Phone: Lymphocytes (Bld) [#/Vol] 1.90 10*3/uL [facility] Phone: Lymphocytes/100 WBC (Bld) 36 % 24 - 44 % [facility] Phone: MCH (RBC) [Entitic mass] 32.6 pg 26 - 34 pg [facility] Phone: MCHC (RBC) [Mass/Vol] 33.1 g/dL 31 - 37 g/dL [facility] Phone: MCV (RBC) [Entitic vol] 98.3 fL 80 - 100 fL [facility] Phone: Monocytes (Bld) [#/Vol] 0.50 10*3/uL [facility] Phone: Monocytes/100 WBC (Bld) 9 % 2 - 11 % [facility] Phone: Platelet mean volume (Bld) [Entitic vol] 8.7 fL 6.0 - 12.0 fL [facility] Phone: Platelets (Bld) [#/Vol] NOT REPORTED [facility] Phone: Platelets (Bld) [#/Vol] 246 10*3/uL [facility] Phone: RBC (Bld) [#/Vol] 4.25 10*6/uL 4.0 - 5.2 m/uL [facility] Phone: RBC morphology finding Nom (Bld) NOT REPORTED [facility] Phone: Segmented neutrophils/100 WBC (Bld) 52 % 36 - 66 % [facility] Phone: Segs Absolute 2.70 [employer] Work Phone: WBC (Bld) [#/Vol] NOT REPORTED per [address] [email or web address] Phone: WBC (Bld) [#/Vol] 5.4 10*3/uL [facility] Phone: WBC Morphology NOT REPORTED [email or web address] Phone: CBC with Diffon 01-13-2021 Abs. Basophil 0.10 k/uL Normal 0.0-0.2 [facility] Comment on above: Performed By: #### C DP, ALCB, BMPX #### [place] [id number] Product Development Intern: Wu England MD Abs.Neutrophil (Seg) 2.70 k/uL Normal 1.8-7.7 [facility] Comment on above: Performed By: #### C DP, ALCB, BMPX #### [place] [address] Product Development Intern: Wu England MD Basophils/100 WBC (Bld) 1 % Normal 0-2 [facility] Comment on above: Performed By: #### C DP, ALCB, BMPX #### [place] [address] Product Development Intern: Wu England MD Eosinophils (Bld) [#/Vol] 0.10 10*3/uL Normal 0.0-0.4 [facility] Comment on above: Performed By: #### C DP, ALCB, BMPX #### [place] [address] Product Development Intern: Wu England MD Eosinophils/100 WBC (Bld) 2 % Normal 1-4 [facility] Comment on above: Performed By: #### C DP, ALCB, BMPX #### [place] [place] [id number] Product Development Intern: Wu England MD Erythrocyte distribution width (RBC) [Ratio] 13.6 % Normal 12.5-15.4 [facility] Comment on above: Performed By: #### C DP, ALCB, BMPX #### [place] [address] Product Development Intern: Wu England MD Hematocrit (Bld) [Volume fraction] 41.8 % Normal 36-46 [facility] Comment on above: Performed By: #### C DP, ALCB, BMPX #### [place] [address] Product Development Intern: Wu England MD Hemoglobin (Bld) [Mass/Vol] 13.8 g/dL Normal 12.0-16.0 [facility] Comment on above: Performed By: #### C DP, ALCB, BMPX #### [place] [address] Product Development Intern: Wu England MD Lymphocytes (Bld) [#/Vol] 1.90 10*3/uL Normal 1.0-4.8 [facility] Comment on above: Performed By: #### C DP, ALCB, BMPX #### [place] [address] Product Development Intern: Wu England MD Lymphocytes/100 WBC (Bld) 36 % Normal 24-44 [facility] Comment on above: Performed By: #### C DP, ALCB, BMPX #### [place] [address] Product Development Intern: Wu England MD MCH (RBC) [Entitic mass] 32.6 pg Normal 26-34 [facility] Comment on above: Performed By: #### C DP, ALCB, BMPX #### [place] [address] Product Development Intern: Wu Englnad MD MCHC (RBC) [Mass/Vol] 33.1 g/dL Normal 31-37 [facility] Comment on above: Performed By: #### C DP, ALCB, BMPX #### [place] [address] Product Development Intern: Wu England MD MCV (RBC) [Entitic vol] 98.3 fL Normal 80-100 [facility] Comment on above: Performed By: #### C DP, ALCB, BMPX #### [place] [address] Product Development Intern: Wu England MD Monocytes (Bld) [#/Vol] 0.50 10*3/uL Normal 0.1-1.2 [facility] Comment on above: Performed By: #### C DP, ALCB, BMPX #### [place] [address] Product Development Intern: Wu England MD Monocytes/100 WBC (Bld) 9 % Normal 2-11 [facility] Comment on above: Performed By: #### C DP, ALCB, BMPX #### [place] [address] Product Development Intern: Wu England MD Neutrophil (Seg) 52 % Normal 36-66 [facility] Comment on above: Performed By: #### C DP, ALCB, BMPX #### [place] [address] Product Development Intern: Wu England MD Platelet mean volume (Bld) [Entitic vol] 8.7 fL Normal 6.0-12.0 [facility] Comment on above: Performed By: #### C DP, ALCB, BMPX #### [place] [address] Product Development Intern: Wu England MD Platelets (Bld) [#/Vol] 246 10*3/uL Normal 140-450 [facility] Comment on above: Performed By: #### C DP, ALCB, BMPX #### [place] [address] Product Development Intern: Wu England MD RBC (Bld) [#/Vol] 4.25 10*6/uL Normal 4.0-5.2 [facility] Comment on above: Performed By: #### C DP, ALCB, BMPX #### [place] [address] Product Development Intern: Wu England MD WBC (Bld) [#/Vol] 5.4 10*3/uL Normal 3.5-11.0 [facility] Comment on above: Performed By: #### C DP, ALCB, BMPX #### [place] [address] Product Development Intern: Wu England MD Abs.Imm.Granulocyte NOT REPORTED Normal 0.00-0.30 [facility] Comment on above: Performed By: #### C DP, ALCB, BMPX #### [place] [address] Product Development Intern: Wu England MD Auto Diff Performed NOT REPORTED Normal [facility] Comment on above: Performed By: #### C DP, ALCB, BMPX #### [place] [address] Product Development Intern: Wu England MD Immature Granulocyte NOT REPORTED Normal 0 [facility] Comment on above: Performed By: #### C DP, ALCB, BMPX #### [place] [address] Product Development Intern: Wu England MD NRBC Automated NOT REPORTED Normal [facility] Comment on above: Performed By: #### C DP, ALCB, BMPX #### [place] [address] Product Development Intern: Wu England MD Platelet Estimate NOT REPORTED Normal [facility] Comment on above: Performed By: #### C DP, ALCB, BMPX #### [place] [address] Product Development Intern: Wu England MD RBC morphology finding Nom (Bld) NOT REPORTED Normal [facility] Comment on above: Performed By: #### C DP, ALCB, BMPX #### [place] [address] Product Development Intern: Wu England MD WBC Morphology NOT REPORTED Normal [facility] Comment on above: Performed By: #### C DP, ALCB, BMPX #### [place] [address] Product Development Intern: Wu England MD CT Cervical Spine WO Contras ton 01-13-2021 [place], pn Incoming Radiant Results From [email or web address] - 01/13/2021 10:49 PM EDT EXAMINATION: CT OF THE CERVICAL SPINE WITHOUT CONTRAST 01/13/2021 10:04 pm TECHNIQUE: CT of the cervical spine was performed without the administration of intravenous contrast. Multiplanar reformatted images are provided for review. Dose modulation, iterative reconstruction, and/or weight based adjustment of the mA/kV was utilized to reduce the radiation dose to as low as reasonably achievable. COMPARISON: None. HISTORY: ORDERING SYSTEM PROVIDED HISTORY: Head injury TECHNOLOGIST PROVIDED HISTORY: Head injury Decision Support Exception->Emergency Medical Condition (MA) Reason for Exam: fall Acuity: Acute Type of Exam: Initial FINDINGS: BONES/ALIGNMENT: There is no acute fracture or traumatic malalignment. C2 on C3 and C3 on C4 anterolisthesis measuring 2-3 mm is present, likely degenerative in etiology. DEGENERATIVE CHANGES: Multifocal brrb-gx-mezjyecw spondylosis is noted within the cervical spine without significant associated central canal stenosis/compromise identified. 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 SOFT TISSUES: There is no prevertebral soft tissue swelling. IMPRESSION: 1. No acute abnormality of the cervical spine. 2. C2 on C3 and C3 on C4 anterolisthesis measuring 2-3 mm, likely degenerative. 3. 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 [facility] Phone: 1. No acute abnormality of the cervical spine. 2. C2 on C3 and C3 on C4 anterolisthesis measuring 2-3 mm, likely degenerative. 3. 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 [facility] Phone: EXAMINATION: CT OF T HE CERVICAL SPINE WITHOUT CONTRAST 01/13/2021 10:04 pm TECHNIQUE: CT of the cervical spine was performed without the administration of intravenous contrast. Multiplanar reformatted images are provided for review. Dose modulation, iterative reconstruction, and/or weight based adjustment of the mA/kV was utilized to reduce the radiation dose to as low as reasonably achievable. COMPARISON: None. HISTORY: ORDERING SYSTEM PROVIDED HISTORY: Head injury TECHNOLOGIST PROVIDED HISTORY: Head injury Decision Support Exception->Emergency Medical Condition (MA) Reason for Exam: fall Acuity: Acute Type of Exam: Initial FINDINGS: BONES/ALIGNMENT: There is no acute fracture or traumatic malalignment. C2 on C3 and C3 on C4 anterolisthesis measuring 2-3 mm is present, likely degenerative in etiology. DEGENERATIVE CHANGES: Multifocal sdjk-bo-giykmolz spondylosis is noted within the cervical spine without significant associated central canal stenosis/compromise identified. 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 SOFT TISSUES: There is no prevertebral soft tissue swelling. [facility] Phone: CT Head WO Contraston 2020 Bilateral frontoparietal acute subdural hematomas with greatest thickness measuring 6 mm in the left superior frontal region and 3 mm on the right superior frontal region. Based on the referring physician the patient has a recent brain imaging which noticed subdural hematoma, once that examination becomes available an addendum will be made. Bilateral subdural hygromas surrounding the cerebellar hemisphere, measuring 9 mm on the left side and 5 mm on the right side. Fracture involving right parietal bone. No evidence for acute territorial infarction or intracranial mass lesion. Mild chronic microangiopathic ischemic disease. Mild generalized volume loss. The findings were sent to the Radiology Results Communication Center at 9:49 pm on 01/13/2021to be communicated to a licensed caregiver. [facility] Phone: Addendum by Lisa Raymond MD on 01/13/2021 10:19 PM ADDENDUM: Outside images are not available however based on the outside report which mentions chronic subdural, the subdural hematomas are acute and recent and related to current event. Critical results were called by Dr. Lisa Raymond MD to [facility] RICKETTS on 01/13/2021 at 22:15. [facility] Phone: EXAMINATION: CT OF T HE HEAD WITHOUT CONTRAST 01/13/2021 9:12 pm TECHNIQUE: CT of the head was performed without the administration of intravenous contrast. Dose modulation, iterative reconstruction, and/or weight based adjustment of the mA/kV was utilized to reduce the radiation dose to as low as reasonably achievable. COMPARISON: None. HISTORY: ORDERING SYSTEM PROVIDED HISTORY: Head injury TECHNOLOGIST PROVIDED HISTORY: Head injury Decision Support Exception->Emergency Medical Condition (MA) Reason for Exam: fall Acuity: Acute Type of Exam: Initial FINDINGS: There are bilateral frontoparietal acute subdural hematomas with greatest thickness measuring 6 mm in the left superior frontal region and 3 mm on the right superior frontal region.Bilateral subdural hygromas surrounding the cerebellar hemisphere, measuring 9 mm on the left side and 5 mm on the right side. There is no acute infarction, intraparenchymal hemorrhage or intracranial mass lesion. No midline shift is noted. There are mild nonspecific foci of periventricular and subcortical cerebral white matter hypodensity, most likely representing chronic microangiopathic disease in this age group. The brain parenchyma is otherwise normal. The cerebellar tonsils are in normal position. The ventricles, sulci, and cisterns are mildly prominent suggestive of mild generalized volume loss. The globes and orbits are within normal limits. The visualized extracranial structures including paranasal sinuses and mastoid air cells are unremarkable. There is a fracture involving the right parietal bone. [employer] [facility] Work Phone: [place], pn Incoming Radiant Results From IM5/[employer] - 01/13/2021 9:51 PM EDT EXAMINATION: CT OF THE HEAD WITHOUT CONTRAST 01/13/2021 9:12 pm TECHNIQUE: CT of the head was performed without the administration of intravenous contrast. Dose modulation, iterative reconstruction, and/or weight based adjustment of the mA/kV was utilized to reduce the radiation dose to as low as reasonably achievable. COMPARISON: None. HISTORY: ORDERING SYSTEM PROVIDED HISTORY: Head injury TECHNOLOGIST PROVIDED HISTORY: Head injury Decision Support Exception->Emergency Medical Condition (MA) Reason for Exam: fall Acuity: Acute Type of Exam: Initial FINDINGS: There are bilateral frontoparietal acute subdural hematomas with greatest thickness measuring 6 mm in the left superior frontal region and 3 mm on the right superior frontal region.Bilateral subdural hygromas surrounding the cerebellar hemisphere, measuring 9 mm on the left side and 5 mm on the right side. There is no acute infarction, intraparenchymal hemorrhage or intracranial mass lesion. No midline shift is noted. There are mild nonspecific foci of periventricular and subcortical cerebral white matter hypodensity, most likely representing chronic microangiopathic disease in this age group. The brain parenchyma is otherwise normal. The cerebellar tonsils are in normal position. The ventricles, sulci, and cisterns are mildly prominent suggestive of mild generalized volume loss. The globes and orbits are within normal limits. The visualized extracranial structures including paranasal sinuses and mastoid air cells are unremarkable. There is a fracture involving the right parietal bone. IMPRESSION: Bilateral frontoparietal acute subdural hematomas with greatest thickness measuring 6 mm in the left superior frontal region and 3 mm on the right superior frontal region. Based on the referring physician the patient has a recent brain imaging which noticed subdural hematoma, once that examination becomes available an addendum will be made. Bilateral subdural hygromas surrounding the cerebellar hemisphere, measuring 9 mm on the left side and 5 mm on the right side. Fracture involving right parietal bone. No evidence for acute territorial infarction or intracranial mass lesion. Mild chronic microangiopathic ischemic disease. Mild generalized volume loss. The findings were sent to the Radiology Results Communication Center at 9:49 pm on 01/13/2021to be communicated to a licensed caregiver. [facility] Work Phone: Ethanolon 01-13-2021 Ethanol [Mass/Vol] 276 mg/dL High <10 [facility] Work Phone: Ethanol percent 0.276 % High <0.010 [facility] Work Phone: Ethanol Alcoholon 01-13-2021 Ethanol [Mass/Vol] 276 mg/dL High <10 [facility] Comment on above: Performed By: #### C DP, ALCB, BMPX #### [address] [address] Product Development Intern: Wu England MD Ethanol percent 0.276 % High <0.010 [facility] Comment on above: Performed By: #### C DP, ALCB, BMPX #### [address] [address] Product Development Intern: Wu England MD Hepatic Function Panelon Albumin [Mass/Vol] 3.8 g/dL 3.5 - 5.2 g/dL [facility] Phone: Albumin/Globulin [Mass ratio] 1.7 {ratio} [facility] Phone: ALP [Catalytic activity/Vol] 76 U/L 35 - 104 U/L [facility] Phone: ALT [Catalytic activity/Vol] 12 U/L 5 - 33 U/L [facility] Phone: AST [Catalytic activity/Vol] 25 U/L <32 [facility] Phone: Bilirubin Ql (U) 0.11 mg/dL Low 0.3 - 1.2 mg/dL [facility] Phone: Bilirubin, Indirect CANNOT BE CALCULATED 0.00 - 1.00 mg/dL [facility] Phone: Bilirubin.direct [Mass/Vol] mg/dL <0.31 mg/dL [facility] Phone: Globulin (S) [Mass/Vol] NOT REPORTED 1.5 - 3.8 g/dL [facility] Phone: Interpretation and review of laboratory results Abnormal [facility] Phone: Protein [Mass/Vol] 6.0 g/dL Low 6.4 - 8.3 g/dL [facility] Phone: Liver Profileon 01-13-2021 Globulin Fraction NOT REPORTED Normal 1.5-3.8 [facility] Comment on above: Performed By: #### L IVP #### [facility] [address] [place] [address] Product Development Intern: Wu England MD Otheron 01-13-2021 Interpretation and review of laboratory results Abnormal [email or web address] Phone: Immature granulocytes (Bld) [#/Vol] NOT REPORTED [facility] Phone: PTon 01-13-2021 INR Coag (PPP) [Relative time] 0.9 {INR} Normal [facility] Comment on above: Result Comment: Therapeutic Range: Moderate Anticoagulant Intensity: INR = 2.0-3.0 High Anticoagulant Intensity: INR = 2.5-3.5 Performed By: #### P T, PTT #### [address] [address] Product Development Intern: Wu England MD PT Coag (PPP) [Time] 9.8 s Normal 9.4-12.6 [facility] Comment on above: Performed By: #### P T, PTT #### [address] [address] Product Development Intern: Wu England MD Protime-INRon 01-13-2021 INR Coag (PPP) [Relative time] 0.9 {INR} [facility] Phone: Comment on above: Therapeutic Range: Moderate Anticoagulant Intensity: INR = 2.0-3.0 High Anticoagulant Intensity: INR = 2.5-3.5 PT Coag (PPP) [Time] 9.8 s [facility] [place] Phone: Basic Metabolic Panelon 12-12 Calcium [Mass/Vol] 9.3 mg/dL Normal 8.4-10.4 [facility] Comment on above: Performed By: #### B MP3 #### [facility] [address] [place] [address] Glucose [Mass/Vol] 121 mg/dL High 70-100 [facility] Comment on above: Performed By: #### B MP3 #### [facility] [address] [place] [address] Anion gap [Moles/Vol] 8 mmol/L Normal 3-13 [facility] Comment on above: Performed By: #### B MP3 #### [facility] [address] [place], [place] CO2 [Moles/Vol] 21 mmol/L Low 22-30 [facility] Comment on above: Performed By: #### B MP3 #### [facility] [address] [place], [place] Creatinine [Mass/Vol] 0.53 mg/dL Normal 0.52-1.25 [facility] Comment on above: Performed By: #### B MP3 #### [facility] [address] [place], [place] eGFR OTHER > 90.0 Normal >60 [facility] Comment on above: Result Comment: KDIG O guidelines provide the following GFR categories: Stage GFR(ml/min/1.73 m2) Terms G1 >=90 Normal or high G2 60-89 Mildly decreased* G3a 45-59 Mildly to moderately decreased G3b 30-44 Moderately to severely decreased G4 15-29 Severely decreased G5 <15 Kidney failure *Relative to young adult level. In the absence of evidence of kidney damage, neither GFR category G1 nor G2 fulfill the criteria for CKD. The CKD-EPI equation is validated in individuals 18 years of age and older. Currently the best equation for estimating glomerular filtration rate (GFR) from serum creatinine in children is the Bedside Robison equation. It is less accurate in patients with extremes of muscle mass, restriction of dietary protein, ingestion of creatine, extra-renal metabolism of creatinine, or treatment with medications that affect renal tubular creatinine secretion. Performed By: #### B MP3 #### [facility] [address] [place], [place] GFR/1.73 sq M.predicted among blacks MDRD (S/P/Bld) [Vol rate/Area] mL/min/{1.73_m2} Normal >60 [facility] Comment on above: Performed By: #### B MP3 #### [facility] [address] [place], [place] Urea nitrogen [Mass/Vol] 4 mg/dL Low 7-20 [facility] Comment on above: Performed By: #### B MP3 #### [facility] [address] [place] [address] Potassium [Moles/Vol] 3.5 mmol/L Normal 3.5-5.1 [facility] Comment on above: Performed By: #### B MP3 #### [facility] [address] [place] [address] Chloride [Moles/Vol] 102 mmol/L Normal 98-107 [facility] Comment on above: Performed By: #### B MP3 #### [facility] [address] [place] [address] Sodium [Moles/Vol] 132 mmol/L Low 135-145 [facility] Comment on above: Performed By: #### B MP3 #### [facility] [address] [place] [address] Anion gap [Moles/Vol] 8 mmol/L 3 - 13 mmol/L [facility] Work Phone: Calcium [Mass/Vol] 9.3 mg/dL 8.4 - 10. 4 mg/dL [facility] Work Phone: Chloride [Moles/Vol] 102 mmol/L 98 - 107 mmol/L [facility] Work Phone: CO2 [Moles/Vol] 21 mmol/L Low 22 - 30 mmol/L [facility] Work Phone: Creatinine [Mass/Vol] 0.53 mg/dL 0.52 - 1.25 mg/dL [facility] Work Phone: EGFR IF NonAfrican Eritrean >90.0 >60 mL/min [facility] Work Phone: Comment on above: KDIGO guidelines pro vide the following GFR categories: Stage GFR(ml/min/1.73 m2) Terms G1 >=90 Normal or high G2 60-89 Mildly decreased* G3a 45-59 Mildly to moderately decreased G3b 30-44 Moderately to severely decreased G4 15-29 Severely decreased G5 <15 Kidney failure *Relative to young adult level. In the absence of evidence of kidney damage, neither GFR category G1 nor G2 fulfill the criteria for CKD. The CKD-EPI equation is validated in individuals 18 years of age and older. Currently the best equation for estimating glomerular filtration rate (GFR) from serum creatinine in children is the Bedside Robison equation. It is less accurate in patients with extremes of muscle mass, restriction of dietary protein, ingestion of creatine, extra-renal metabolism of creatinine, or treatment with medications that affect renal tubular creatinine secretion. GFR/1.73 sq M predicted among blacks MDRD (S/P/Bld) [Vol rate/Area] mL/min/{1.73_m2} >60 mL/min [facility] Work Phone: [phone] Glucose [Mass/Vol] 121 mg/dL High 70 - 100 mg/dL [facility] Work Phone: [phone] Interpretation and review of laboratory results Abnormal [facility] Work Phone: [phone] Potassium [Moles/Vol] 3.5 mmol/L 3.5 - 5.1 mmol/L [facility] Work Phone: [phone] Sodium [Moles/Vol] 132 mmol/L Low 135 - 145 mmol/L [facility] Work Phone: [phone] Urea nitrogen [Mass/Vol] 4 mg/dL Low 7 - 20 mg/dL [facility] Work Phone: [phone] Test Performed by [facility], [address] [place] [address] [facility] Work Phone: Basic Metabolic Panelon 12-12 Calcium [Mass/Vol] 9.3 mg/dL Normal 8.4-10.4 [facility] Comment on above: Performed By: #### M G3, PHOS3, HEMDF, BMP3M #### [address] [address] Glucose [Mass/Vol] 77 mg/dL Normal 70-100 [facility] Comment on above: Performed By: #### M G3, PHOS3, HEMDF, BMP3M #### [address] [address] Anion gap [Moles/Vol] 6 mmol/L Normal 3-13 [facility] Comment on above: Performed By: #### M G3, PHOS3, HEMDF, BMP3M #### [address] CO2 [Moles/Vol] 24 mmol/L Normal 22-30 [facility] Comment on above: Performed By: #### M G3, PHOS3, HEMDF, BMP3M #### [facility] [address] [place], [place] Creatinine [Mass/Vol] 0.51 mg/dL Low 0.52-1.25 [facility] Comment on above: Performed By: #### M G3, PHOS3, HEMDF, BMP3M #### [facility] [address] [place], [place] eGFR OTHER > 90.0 Normal >60 [facility] Comment on above: Result Comment: KDIG O guidelines provide the following GFR categories: Stage GFR(ml/min/1.73 m2) Terms G1 >=90 Normal or high G2 60-89 Mildly decreased* G3a 45-59 Mildly to moderately decreased G3b 30-44 Moderately to severely decreased G4 15-29 Severely decreased G5 <15 Kidney failure *Relative to young adult level. In the absence of evidence of kidney damage, neither GFR category G1 nor G2 fulfill the criteria for CKD. The CKD-EPI equation is validated in individuals 18 years of age and older. Currently the best equation for estimating glomerular filtration rate (GFR) from serum creatinine in children is the Bedside Robison equation. It is less accurate in patients with extremes of muscle mass, restriction of dietary protein, ingestion of creatine, extra-renal metabolism of creatinine, or treatment with medications that affect renal tubular creatinine secretion. Performed By: #### M G3, PHOS3, HEMDF, BMP3M #### [facility] [address] [place], [place] GFR/1.73 sq M.predicted among blacks MDRD (S/P/Bld) [Vol rate/Area] mL/min/{1.73_m2} Normal >60 [facility] Comment on above: Performed By: #### M G3, PHOS3, HEMDF, BMP3M #### [facility] [address] [place], [place] Urea nitrogen [Mass/Vol] 4 mg/dL Low 7-20 [facility] Comment on above: Performed By: #### M G3, PHOS3, HEMDF, BMP3M #### [facility] [address] [place] [address] Chloride [Moles/Vol] 105 mmol/L Normal 98-107 [facility] Comment on above: Performed By: #### M G3, PHOS3, HEMDF, BMP3M #### [facility] [address] [place] [address] Potassium [Moles/Vol] 3.9 mmol/L Normal 3.5-5.1 [facility] Comment on above: Performed By: #### M G3, PHOS3, HEMDF, BMP3M #### [facility] [address] [place] [address] Sodium [Moles/Vol] 134 mmol/L Low 135-145 [facility] Comment on above: Performed By: #### M G3, PHOS3, HEMDF, BMP3M #### [facility] [address] [place] [address] Anion gap [Moles/Vol] 6 mmol/L 3 - 13 mmol/L [facility] Work Phone: Calcium [Mass/Vol] 9.3 mg/dL 8.4 - 10. 4 mg/dL [facility] Work Phone: Chloride [Moles/Vol] 105 mmol/L 98 - 107 mmol/L [facility] Work Phone: CO2 [Moles/Vol] 24 mmol/L 22 - 30 mmol/L [facility] Work Phone: Creatinine [Mass/Vol] 0.51 mg/dL Low 0.52 - 1.25 mg/dL [facility] Work Phone: EGFR IF NonAfrican Eritrean >90.0 >60 mL/min [facility] Work Phone: Comment on above: KDIGO guidelines pro vide the following GFR categories: Stage GFR(ml/min/1.73 m2) Terms G1 >=90 Normal or high G2 60-89 Mildly decreased* G3a 45-59 Mildly to moderately decreased G3b 30-44 Moderately to severely decreased G4 15-29 Severely decreased G5 <15 Kidney failure *Relative to young adult level. In the absence of evidence of kidney damage, neither GFR category G1 nor G2 fulfill the criteria for CKD. The CKD-EPI equation is validated in individuals 18 years of age and older. Currently the best equation for estimating glomerular filtration rate (GFR) from serum creatinine in children is the Bedside Robison equation. It is less accurate in patients with extremes of muscle mass, restriction of dietary protein, ingestion of creatine, extra-renal metabolism of creatinine, or treatment with medications that affect renal tubular creatinine secretion. GFR/1.73 sq M predicted among blacks MDRD (S/P/Bld) [Vol rate/Area] mL/min/{1.73_m2} >60 mL/min [facility] Work Phone: Glucose [Mass/Vol] 77 mg/dL 70 - 100 mg/dL [facility] Work Phone: Interpretation and review of laboratory results Abnormal [facility] Work Phone: Potassium [Moles/Vol] 3.9 mmol/L 3.5 - 5.1 mmol/L [facility] Work Phone: Sodium [Moles/Vol] 134 mmol/L Low 135 - 145 mmol/L [facility] Work Phone: Urea nitrogen [Mass/Vol] 4 mg/dL Low 7 - 20 mg/dL [facility] Work Phone: Test Performed by [facility], [address] [place] [id number] [facility] Work Phone: COVID-19on 12-26-2020 SARS-CoV-2 Not Detected. Not Detected [facility] Work Phone: Comment on above: Not Detected. Expected Result: Not Detected _ Real-time, RT-PCR performed on the [employer] System by the [facility] Microbiology Service Negative results do not preclude SARS-CoV-2 infection and should not be used as the sole basis for treatment or other patient management decisions. This assay was developed by [employer] and [employer] and distributed under an Emergency Use Authorization (EUA) granted by the FDA for the qualitative detection of SARS-CoV-2 nucleic acid. Provider and patient fact sheets can be found at https://www.fda.gov/media/995314/download and https://www.fda.gov/media/551116/download. [facility], [address] [place] [address] [id number] 12-26-2020 SARS-CoV-2 (COVID-19) RNA CY+probe Ql (Unsp spec) SARS-CoV-2 --> Status: F Not Detected. Expected Result: Not Detected _ Real-time, RT-PCR performed on the [employer] System by the [facility] Microbiology Service Negative results do not preclude SARS-CoV-2 infection and should not be used as the sole basis for treatment or other patient management decisions. This assay was developed by [employer] and distributed under an Emergency Use Authorization (EUA) granted by the FDA for the qualitative detection of SARS-CoV-2 nucleic acid. Provider and patient fact sheets can be found at https://www.[facility].gov/ny caio/140381/download and https://www.[employer].gov/me caio/434292/download. Expected Result: Not Detected _ Real-time, RT-PCR performed on the [employer] System by the [facility] Broadlink Service Negative results do not preclude SARS-CoV-2 infection and should not be used as the sole basis for treatment or other patient management decisions. This assay was developed by [employer] and distributed under an Emergency Use Authorization (EUA) granted by the FDA for the qualitative detection of SARS-CoV-2 nucleic acid. Provider and patient fact sheets can be found at https://www.[employer].gov/me caio/401963/download and https://www.[employer].gov/ny caio/745438/download. Normal [facility] Comment on above: Performed By: #### M G3, PHOS3, HEMDF, BMP3M #### [facility] [address] [address] BASIC METABOLIC PANELon 03- Anion gap [Moles/Vol] 9 mmol/L 3 - 13 mmol/L [facility] Work Phone: Calcium [Mass/Vol] 9.4 mg/dL 8.4 - 10. 4 mg/dL [facility] Work Phone: Chloride [Moles/Vol] 104 mmol/L 98 - 107 mmol/L [facility] Work Phone: [phone] CO2 [Moles/Vol] 25 mmol/L 22 - 30 mmol/L [facility] Work Phone: [phone] Creatinine [Mass/Vol] 0.49 mg/dL Low 0.52 - 1.25 mg/dL [facility] Work Phone: [phone] EGFR IF NonAfrican Eritrean >90.0 >60 mL/min [facility] Work Phone: [phone] Comment on above: KDIGO guidelines pro vide the following GFR categories: Stage GFR(ml/min/1.73 m2) Terms G1 >=90 Normal or high G2 60-89 Mildly decreased* G3a 45-59 Mildly to moderately decreased G3b 30-44 Moderately to severely decreased G4 15-29 Severely decreased G5 <15 Kidney failure *Relative to young adult level. In the absence of evidence of kidney damage, neither GFR category G1 nor G2 fulfill the criteria for CKD. The CKD-EPI equation is validated in individuals 18 years of age and older. Currently the best equation for estimating glomerular filtration rate (GFR) from serum creatinine in children is the Bedside Robison equation. It is less accurate in patients with extremes of muscle mass, restriction of dietary protein, ingestion of creatine, extra-renal metabolism of creatinine, or treatment with medications that affect renal tubular creatinine secretion. GFR/1.73 sq M predicted among blacks MDRD (S/P/Bld) [Vol rate/Area] mL/min/{1.73_m2} >60 mL/min [facility] Work Phone: [phone] Glucose [Mass/Vol] 92 mg/dL 70 - 100 mg/dL [facility] Work Phone: [phone] Interpretation and review of laboratory results Abnormal [facility] Work Phone: [phone] Potassium [Moles/Vol] 4.1 mmol/L 3.5 - 5.1 mmol/L [facility] Work Phone: [phone] Sodium [Moles/Vol] 137 mmol/L 135 - 145 mmol/L [facility] Work Phone: [phone] Urea nitrogen [Mass/Vol] 8 mg/dL 7 - 20 mg/dL [facility] Work Phone: [phone] Test Performed by [facility], [address] [place] [id number] [facility] Work Phone: Basic Metabolic Panelon 12-12 Calcium [Mass/Vol] 9.4 mg/dL Normal 8.4-10.4 [facility] Comment on above: Performed By: #### M G3, PHOS3, HEMDF, BMP3M #### [facility] [address] [place], [place] Glucose [Mass/Vol] 92 mg/dL Normal 70-100 [facility] Comment on above: Performed By: #### M G3, PHOS3, HEMDF, BMP3M #### [facility] [address] [place], [place] Urea nitrogen [Mass/Vol] 8 mg/dL Normal 7-20 [facility] Comment on above: Performed By: #### M G3, PHOS3, HEMDF, BMP3M #### [facility] [address] [place], [place] Anion gap [Moles/Vol] 9 mmol/L Normal 3-13 [facility] Comment on above: Performed By: #### M G3, PHOS3, HEMDF, BMP3M #### [facility] [address] [place], [place] CO2 [Moles/Vol] 25 mmol/L Normal 22-30 [facility] Comment on above: Performed By: #### M G3, PHOS3, HEMDF, BMP3M #### [facility] [address] [place], [place] Creatinine [Mass/Vol] 0.49 mg/dL Low 0.52-1.25 [facility] Comment on above: Performed By: #### M G3, PHOS3, HEMDF, BMP3M #### [facility] [address] [place], [place] eGFR OTHER > 90.0 Normal >60 [facility] Comment on above: Result Comment: KDIG O guidelines provide the following GFR categories: Stage GFR(ml/min/1.73 m2) Terms G1 >=90 Normal or high G2 60-89 Mildly decreased* G3a 45-59 Mildly to moderately decreased G3b 30-44 Moderately to severely decreased G4 15-29 Severely decreased G5 <15 Kidney failure *Relative to young adult level. In the absence of evidence of kidney damage, neither GFR category G1 nor G2 fulfill the criteria for CKD. The CKD-EPI equation is validated in individuals 18 years of age and older. Currently the best equation for estimating glomerular filtration rate (GFR) from serum creatinine in children is the Bedside Robiosn equation. It is less accurate in patients with extremes of muscle mass, restriction of dietary protein, ingestion of creatine, extra-renal metabolism of creatinine, or treatment with medications that affect renal tubular creatinine secretion. Performed By: #### M G3, PHOS3, HEMDF, BMP3M #### [address] GFR/1.73 sq M.predicted among blacks MDRD (S/P/Bld) [Vol rate/Area] mL/min/{1.73_m2} Normal >60 [facility] Comment on above: Performed By: #### M G3, PHOS3, HEMDF, BMP3M #### [address] Chloride [Moles/Vol] 104 mmol/L Normal 98-107 [facility] Comment on above: Performed By: #### M G3, PHOS3, HEMDF, BMP3M #### [address] Potassium [Moles/Vol] 4.1 mmol/L Normal 3.5-5.1 [facility] Comment on above: Performed By: #### M G3, PHOS3, HEMDF, BMP3M #### [address] Sodium [Moles/Vol] 137 mmol/L Normal 135-145 [facility] Comment on above: Performed By: #### M G3, PHOS3, HEMDF, BMP3M #### [address] Basic Metabolic Panelon 03- Anion gap [Moles/Vol] 10 mmol/L Normal 3-13 [facility] Comment on above: Performed By: #### B MP3 #### [address] [place] Calcium [Mass/Vol] 9.4 mg/dL Normal 8.4-10.4 [facility] Comment on above: Performed By: #### B MP3 #### [facility] [address] [place], [place] CO2 [Moles/Vol] 22 mmol/L Normal 22-30 [facility] Comment on above: Performed By: #### B MP3 #### [facility] [address] [place], [place] Glucose [Mass/Vol] 126 mg/dL High 70-100 [facility] Comment on above: Performed By: #### B MP3 #### [address] Urea nitrogen [Mass/Vol] 10 mg/dL Normal 7-20 [facility] Comment on above: Performed By: #### B MP3 #### [facility] [address] [place], [place] Creatinine [Mass/Vol] 0.50 mg/dL Low 0.52-1.25 [facility] Comment on above: Performed By: #### B MP3 #### [address] [place], [place] eGFR OTHER > 90.0 Normal >60 [facility] Comment on above: Result Comment: KDIG O guidelines provide the following GFR categories: Stage GFR(ml/min/1.73 m2) Terms G1 >=90 Normal or high G2 60-89 Mildly decreased* G3a 45-59 Mildly to moderately decreased G3b 30-44 Moderately to severely decreased G4 15-29 Severely decreased G5 <15 Kidney failure *Relative to young adult level. In the absence of evidence of kidney damage, neither GFR category G1 nor G2 fulfill the criteria for CKD. The CKD-EPI equation is validated in individuals 18 years of age and older. Currently the best equation for estimating glomerular filtration rate (GFR) from serum creatinine in children is the Bedside Robison equation. It is less accurate in patients with extremes of muscle mass, restriction of dietary protein, ingestion of creatine, extra-renal metabolism of creatinine, or treatment with medications that affect renal tubular creatinine secretion. Performed By: #### B MP3 #### [facility] [address] [place] [address] GFR/1.73 sq M.predicted among blacks MDRD (S/P/Bld) [Vol rate/Area] mL/min/{1.73_m2} Normal >60 [facility] Comment on above: Performed By: #### B MP3 #### [facility] [address] [place] [address] Chloride [Moles/Vol] 104 mmol/L Normal 98-107 [facility] Comment on above: Performed By: #### B MP3 #### [facility] [address] [place] [address] Potassium [Moles/Vol] 4.1 mmol/L Normal 3.5-5.1 [facility] Comment on above: Result Comment: Slig htly hemolysed, interpret with caution. Performed By: #### B MP3 #### [facility] [address] [place] [address] Sodium [Moles/Vol] 135 mmol/L Normal 135-145 [facility] Comment on above: Performed By: #### B MP3 #### [facility] [address] [place], [place] Anion gap [Moles/Vol] 10 mmol/L 3 - 13 mmol/L [facility] Work Phone: Calcium [Mass/Vol] 9.4 mg/dL 8.4 - 10. 4 mg/dL [facility] Work Phone: Chloride [Moles/Vol] 104 mmol/L 98 - 107 mmol/L [facility] Work Phone: CO2 [Moles/Vol] 22 mmol/L 22 - 30 mmol/L [facility] Work Phone: Creatinine [Mass/Vol] 0.5 mg/dL Low 0.52 - 1.25 mg/dL [facility] Work Phone: [phone] EGFR IF NonAfrican Eritrean >90.0 >60 mL/min [facility] Work Phone: Comment on above: KDIGO guidelines pro vide the following GFR categories: Stage GFR(ml/min/1.73 m2) Terms G1 >=90 Normal or high G2 60-89 Mildly decreased* G3a 45-59 Mildly to moderately decreased G3b 30-44 Moderately to severely decreased G4 15-29 Severely decreased G5 <15 Kidney failure *Relative to young adult level. In the absence of evidence of kidney damage, neither GFR category G1 nor G2 fulfill the criteria for CKD. The CKD-EPI equation is validated in individuals 18 years of age and older. Currently the best equation for estimating glomerular filtration rate (GFR) from serum creatinine in children is the Bedside Robison equation. It is less accurate in patients with extremes of muscle mass, restriction of dietary protein, ingestion of creatine, extra-renal metabolism of creatinine, or treatment with medications that affect renal tubular creatinine secretion. GFR/1.73 sq M predicted among blacks MDRD (S/P/Bld) [Vol rate/Area] mL/min/{1.73_m2} >60 mL/min [facility] Work Phone: Glucose [Mass/Vol] 126 mg/dL High 70 - 100 mg/dL [facility] Work Phone: Interpretation and review of laboratory results Abnormal [facility] Work Phone: Potassium [Moles/Vol] 4.1 mmol/L 3.5 - 5.1 mmol/L [facility] Work Phone: Comment on above: Slightly hemolysed, interpret with caution. Sodium [Moles/Vol] 135 mmol/L 135 - 145 mmol/L [facility] Work Phone: Urea nitrogen [Mass/Vol] 10 mg/dL 7 - 20 mg/dL [facility] Work Phone: [facility], [address] [place] [address] [facility] Work Phone: COVID-19on 12-20-2020 SARS-CoV-2 Not Detected. Not Detected [facility] Work Phone: Comment on above: Not Detected. Expected Result: Not Detected _ Real-time, RT-PCR performed on the Nov[employer] System by the [facility] Microbiology Service Negative results do not preclude SARS-CoV-2 infection and should not be used as the sole basis for treatment or other patient management decisions. This assay was developed and its performance characteristics determined by the [facility] Broadlink Service. The U. S. Food and Drug Administration has not approved or cleared this test; however, FDA clearance or approval is not currently required for clinical use. Test Performed by [facility], [address] [place] [address] [id number] 12-20-2020 SARS-CoV-2 (COVID-19) RNA CY+probe Ql (Unsp spec) SARS-CoV-2 --> Status: F Not Detected. Expected Result: Not Detected _ Real-time, RT-PCR performed on the [employer] System by the [facility] Broadlink [facility] Negative results do not preclude SARS-CoV-2 infection and should not be used as the sole basis for treatment or other patient management decisions. This assay was developed and its performance characteristics determined by the [facility] Broadlink Service. The [place]. S. Food and Drug Administration has not approved or cleared this test; however, FDA clearance or approval is not currently required for clinical use. Expected Result: Not Detected _ Real-time, RT-PCR performed on the [employer] System by the [facility] Broadlink [facility] Negative results do not preclude SARS-CoV-2 infection and should not be used as the sole basis for treatment or other patient management decisions. This assay was developed and its performance characteristics determined by the [facility] Broadlink Service. The [place]. S. Food and Drug Administration has not approved or cleared this test; however, FDA clearance or approval is not currently required for clinical use. Normal [facility] Comment on above: Performed By: #### A PTT, FIBGN, LDH3, DDI2, B12, CMP3, FERR3, HEMDF, CRP2, PT, FOLT3 #### [facility] [address] [address] [place] [address] #### [id number] #### [facility] [address] [place] [address] Sodiumon 12-19-2020 Sodium [Moles/Vol] 131 mmol/L Low 135-145 [facility] Comment on above: Performed By: #### N A3 #### [address] Interpretation and review of laboratory results Abnormal [facility] Work Phone: Sodium [Moles/Vol] 131 mmol/L Low 135 - 145 mmol/L [facility] Work Phone: [phone] Test Performed by [facility], [facility] [place] [address] [facility] Work Phone: [phone] Metabolic Panelon 03-0 -2020 Anion gap [Moles/Vol] 6 mmol/L Normal 3-13 [facility] Work Phone: [phone] Comment on above: Performed By: #### B MP3 #### [facility] [place] [address] Calcium [Mass/Vol] 8.9 mg/dL Normal 8.4-10.4 [facility] Work Phone: [phone] Comment on above: Performed By: #### B MP3 #### [facility] [place] [address] CO2 [Moles/Vol] 25 mmol/L Normal 22-30 [facility] Work Phone: [phone] Comment on above: Performed By: #### B MP3 #### [facility] [place] [address] Glucose [Mass/Vol] 95 mg/dL Normal 70-100 [facility] Work Phone: [phone] Comment on above: Performed By: #### B MP3 #### [facility] [place] [address] Urea nitrogen [Mass/Vol] 14 mg/dL Normal 7-20 [facility] Work Phone: [phone] Comment on above: Performed By: #### B MP3 #### [facility] [place] [address] Creatinine [Mass/Vol] 0.42 mg/dL Low 0.52-1.25 [facility] Work Phone: [phone] Comment on above: Performed By: #### B MP3 #### [facility] [place] [address] eGFR OTHER > 90.0 Normal >60 [facility] Comment on above: Result Comment: KDIG O guidelines provide the following GFR categories: Stage GFR(ml/min/1.73 m2) Terms G1 >=90 Normal or high G2 60-89 Mildly decreased* G3a 45-59 Mildly to moderately decreased G3b 30-44 Moderately to severely decreased G4 15-29 Severely decreased G5 <15 Kidney failure *Relative to young adult level. In the absence of evidence of kidney damage, neither GFR category G1 nor G2 fulfill the criteria for CKD. The CKD-EPI equation is validated in individuals 18 years of age and older. Currently the best equation for estimating glomerular filtration rate (GFR) from serum creatinine in children is the Bedside Robison equation. It is less accurate in patients with extremes of muscle mass, restriction of dietary protein, ingestion of creatine, extra-renal metabolism of creatinine, or treatment with medications that affect renal tubular creatinine secretion. Performed By: #### B MP3 #### [facility] [address] [place], [place] GFR/1.73 sq M predicted among blacks MDRD (S/P/Bld) [Vol rate/Area] mL/min/{1.73_m2} Normal >60 [facility] Work Phone: Comment on above: Performed By: #### B MP3 #### [facility] [place], [place] Chloride [Moles/Vol] 98 mmol/L Normal 98-107 [facility] Work Phone: [phone] Comment on above: Performed By: #### B MP3 #### [facility] [address] [place] [address] Potassium [Moles/Vol] 3.8 mmol/L Normal 3.5-5.1 [facility] Work Phone: [phone] Comment on above: Performed By: #### B MP3 #### [facility] [place] Sodium [Moles/Vol] 129 mmol/L Low 135-145 [facility] Work Phone: Comment on above: Performed By: #### B MP3 #### [facility] [address] [place] [address] EGFR IF NonAfrican Eritrean >90.0 >60 mL/min [facility] Work Phone: Comment on above: KDIGO guidelines pro vide the following GFR categories: Stage GFR(ml/min/1.73 m2) Terms G1 >=90 Normal or high G2 60-89 Mildly decreased* G3a 45-59 Mildly to moderately decreased G3b 30-44 Moderately to severely decreased G4 15-29 Severely decreased G5 <15 Kidney failure *Relative to young adult level. In the absence of evidence of kidney damage, neither GFR category G1 nor G2 fulfill the criteria for CKD. The CKD-EPI equation is validated in individuals 18 years of age and older. Currently the best equation for estimating glomerular filtration rate (GFR) from serum creatinine in children is the Bedside Robison equation. It is less accurate in patients with extremes of muscle mass, restriction of dietary protein, ingestion of creatine, extra-renal metabolism of creatinine, or treatment with medications that affect renal tubular creatinine secretion. Interpretation and review of laboratory results Abnormal [facility] Work Phone: Test Performed by [address] [address] [facility] Work Phone: Basic Metabolic Panelon 03-0 -2020 Calcium [Mass/Vol] 8.9 mg/dL Normal 8.4-10.4 [facility] Comment on above: Performed By: #### B MP3 #### [address] Glucose [Mass/Vol] 93 mg/dL Normal 70-100 [facility] Comment on above: Performed By: #### B MP3 #### [address] [address] [place], [place] Urea nitrogen [Mass/Vol] 11 mg/dL Normal 7-20 [facility] Comment on above: Performed By: #### B MP3 #### [address] [address] Anion gap [Moles/Vol] 7 mmol/L Normal 3-13 [facility] Comment on above: Performed By: #### B MP3 #### [address] [address] [place], [place] CO2 [Moles/Vol] 25 mmol/L Normal 22-30 [facility] Comment on above: Performed By: #### B MP3 #### [facility] [address] [place], [place] Creatinine [Mass/Vol] 0.42 mg/dL Low 0.52-1.25 [facility] Comment on above: Performed By: #### B MP3 #### [facility] [address] [place], [place] eGFR OTHER > 90.0 Normal >60 [facility] Comment on above: Result Comment: KDIG O guidelines provide the following GFR categories: Stage GFR(ml/min/1.73 m2) Terms G1 >=90 Normal or high G2 60-89 Mildly decreased* G3a 45-59 Mildly to moderately decreased G3b 30-44 Moderately to severely decreased G4 15-29 Severely decreased G5 <15 Kidney failure *Relative to young adult level. In the absence of evidence of kidney damage, neither GFR category G1 nor G2 fulfill the criteria for CKD. The CKD-EPI equation is validated in individuals 18 years of age and older. Currently the best equation for estimating glomerular filtration rate (GFR) from serum creatinine in children is the Bedside Robison equation. It is less accurate in patients with extremes of muscle mass, restriction of dietary protein, ingestion of creatine, extra-renal metabolism of creatinine, or treatment with medications that affect renal tubular creatinine secretion. Performed By: #### B MP3 #### [place] [address] [address] [place], [place] GFR/1.73 sq M.predicted among blacks MDRD (S/P/Bld) [Vol rate/Area] mL/min/{1.73_m2} Normal >60 [facility] Comment on above: Performed By: #### B MP3 #### [facility] [address] [place], [place] Chloride [Moles/Vol] 96 mmol/L Low 98-107 [facility] Comment on above: Performed By: #### B MP3 #### [address] Potassium [Moles/Vol] 3.7 mmol/L Normal 3.5-5.1 [facility] Comment on above: Performed By: #### B MP3 #### [address] [address] [place] [address] Sodium [Moles/Vol] 127 mmol/L Low 135-145 [facility] Comment on above: Performed By: #### B MP3 #### [facility] [address] [place] [address] Anion gap [Moles/Vol] 7 mmol/L 3 - 13 mmol/L [facility] Work Phone: Calcium [Mass/Vol] 8.9 mg/dL 8.4 - 10. 4 mg/dL [facility] Work Phone: Chloride [Moles/Vol] 96 mmol/L Low 98 - 107 mmol/L [facility] Work Phone: CO2 [Moles/Vol] 25 mmol/L 22 - 30 mmol/L [facility] Work Phone: Creatinine [Mass/Vol] 0.42 mg/dL Low 0.52 - 1.25 mg/dL [facility] Work Phone: EGFR IF NonAfrican Eritrean >90.0 >60 mL/min [facility] Work Phone: Comment on above: KDIGO guidelines pro vide the following GFR categories: Stage GFR(ml/min/1.73 m2) Terms G1 >=90 Normal or high G2 60-89 Mildly decreased* G3a 45-59 Mildly to moderately decreased G3b 30-44 Moderately to severely decreased G4 15-29 Severely decreased G5 <15 Kidney failure *Relative to young adult level. In the absence of evidence of kidney damage, neither GFR category G1 nor G2 fulfill the criteria for CKD. The CKD-EPI equation is validated in individuals 18 years of age and older. Currently the best equation for estimating glomerular filtration rate (GFR) from serum creatinine in children is the Bedside Robison equation. It is less accurate in patients with extremes of muscle mass, restriction of dietary protein, ingestion of creatine, extra-renal metabolism of creatinine, or treatment with medications that affect renal tubular creatinine secretion. GFR/1.73 sq M predicted among blacks MDRD (S/P/Bld) [Vol rate/Area] mL/min/{1.73_m2} >60 mL/min [facility] Work Phone: Glucose [Mass/Vol] 93 mg/dL 70 - 100 mg/dL [facility] Work Phone: [phone] Interpretation and review of laboratory results Abnormal [facility] Work Phone: [phone] Potassium [Moles/Vol] 3.7 mmol/L 3.5 - 5.1 mmol/L [facility] Work Phone: [phone] Sodium [Moles/Vol] 127 mmol/L Low 135 - 145 mmol/L [facility] Work Phone: [phone] Urea nitrogen [Mass/Vol] 11 mg/dL 7 - 20 mg/dL [facility] Work Phone: [phone] Test Performed by [facility], [address] [place] [id number] [place] [address] Work Phone: Basic Metabolic Panelon 03-0 Anion gap [Moles/Vol] 6 mmol/L Normal 3-13 [facility] Comment on above: Performed By: #### M G3, PHOS3, HEMDF, BMP3M #### [address] [address] Calcium [Mass/Vol] 8.4 mg/dL Normal 8.4-10.4 [facility] Comment on above: Performed By: #### M G3, PHOS3, HEMDF, BMP3M #### [address] [address] CO2 [Moles/Vol] 24 mmol/L Normal 22-30 [facility] Comment on above: Performed By: #### M G3, PHOS3, HEMDF, BMP3M #### [address] [address] Glucose [Mass/Vol] 90 mg/dL Normal 70-100 [facility] Comment on above: Performed By: #### M G3, PHOS3, HEMDF, BMP3M #### [address] [address] Urea nitrogen [Mass/Vol] 9 mg/dL Normal 7-20 [facility] Comment on above: Performed By: #### M G3, PHOS3, HEMDF, BMP3M #### [address] Creatinine [Mass/Vol] 0.51 mg/dL Low 0.52-1.25 [facility] Comment on above: Performed By: #### M G3, PHOS3, HEMDF, BMP3M #### [address] eGFR OTHER > 90.0 Normal >60 [facility] Comment on above: Result Comment: KDIG O guidelines provide the following GFR categories: Stage GFR(ml/min/1.73 m2) Terms G1 >=90 Normal or high G2 60-89 Mildly decreased* G3a 45-59 Mildly to moderately decreased G3b 30-44 Moderately to severely decreased G4 15-29 Severely decreased G5 <15 Kidney failure *Relative to young adult level. In the absence of evidence of kidney damage, neither GFR category G1 nor G2 fulfill the criteria for CKD. The CKD-EPI equation is validated in individuals 18 years of age and older. Currently the best equation for estimating glomerular filtration rate (GFR) from serum creatinine in children is the Bedside Robison equation. It is less accurate in patients with extremes of muscle mass, restriction of dietary protein, ingestion of creatine, extra-renal metabolism of creatinine, or treatment with medications that affect renal tubular creatinine secretion. Performed By: #### M G3, PHOS3, HEMDF, BMP3M #### [address] GFR/1.73 sq M.predicted among blacks MDRD (S/P/Bld) [Vol rate/Area] mL/min/{1.73_m2} Normal >60 [facility] Comment on above: Performed By: #### M G3, PHOS3, HEMDF, BMP3M #### [address] Potassium [Moles/Vol] 3.7 mmol/L Normal 3.5-5.1 [facility] Comment on above: Performed By: #### M G3, PHOS3, HEMDF, BMP3M #### [address] Sodium [Moles/Vol] 125 mmol/L Low 135-145 [facility] Comment on above: Performed By: #### M G3, PHOS3, HEMDF, BMP3M #### [facility] [address] [place] [address] Chloride [Moles/Vol] 95 mmol/L Low 98-107 [facility] Comment on above: Performed By: #### M G3, PHOS3, HEMDF, BMP3M #### [facility] [address] [place] [address] Anion gap [Moles/Vol] 6 mmol/L 3 - 13 mmol/L [facility] Work Phone: Calcium [Mass/Vol] 8.4 mg/dL 8.4 - 10. 4 mg/dL [facility] Work Phone: Chloride [Moles/Vol] 95 mmol/L Low 98 - 107 mmol/L [facility] Work Phone: CO2 [Moles/Vol] 24 mmol/L 22 - 30 mmol/L [facility] Work Phone: Creatinine [Mass/Vol] 0.51 mg/dL Low 0.52 - 1.25 mg/dL [facility] Work Phone: EGFR IF NonAfrican Eritrean >90.0 >60 mL/min [facility] Work Phone: Comment on above: KDIGO guidelines pro vide the following GFR categories: Stage GFR(ml/min/1.73 m2) Terms G1 >=90 Normal or high G2 60-89 Mildly decreased* G3a 45-59 Mildly to moderately decreased G3b 30-44 Moderately to severely decreased G4 15-29 Severely decreased G5 <15 Kidney failure *Relative to young adult level. In the absence of evidence of kidney damage, neither GFR category G1 nor G2 fulfill the criteria for CKD. The CKD-EPI equation is validated in individuals 18 years of age and older. Currently the best equation for estimating glomerular filtration rate (GFR) from serum creatinine in children is the Bedside Robison equation. It is less accurate in patients with extremes of muscle mass, restriction of dietary protein, ingestion of creatine, extra-renal metabolism of creatinine, or treatment with medications that affect renal tubular creatinine secretion. GFR/1.73 sq M predicted among blacks MDRD (S/P/Bld) [Vol rate/Area] mL/min/{1.73_m2} >60 mL/min [facility] Work Phone: [phone] Glucose [Mass/Vol] 90 mg/dL 70 - 100 mg/dL [facility] Work Phone: [phone] Interpretation and review of laboratory results Abnormal [facility] Work Phone: [phone] Potassium [Moles/Vol] 3.7 mmol/L 3.5 - 5.1 mmol/L [facility] Work Phone: [phone] Sodium [Moles/Vol] 125 mmol/L Low 135 - 145 mmol/L [facility] Work Phone: [phone] Urea nitrogen [Mass/Vol] 9 mg/dL 7 - 20 mg/dL [facility] Work Phone: [phone] Magnesiumon 12-16-2020 Magnesium [Mass/Vol] 1.9 mg/dL Normal 1.6-2.3 [facility] Comment on above: Performed By: #### M G3, PHOS3, HEMDF, BMP3M #### [employer] [employer] [address] [place] [address] Magnesium [Mass/Vol] 1.9 mg/dL 1.6 - 2.3 mg/dL [facility] Work Phone: [phone] Osmolalityon 12-16-2020 Interpretation and review of laboratory results Abnormal [facility] Work Phone: [phone] Serum Osmolality 263 mosm/kg Low 280 - 300 mosm/kg [facility] Work Phone: [phone] Test Performed by [facility], [address] [place] [address] [facility] Work Phone: [phone] Osmolality,Serumon Osmolality,Serum 263 mosm/kg Low 280-300 [facility] Comment on above: Performed By: #### M G3, PHOS3, HEMDF, BMP3M #### [facility] [address] [place] [phone] Otheron 12-16-2020 Test Performed by [facility], [address] [place] [address] [facility] Work Phone: [phone] BASIC METABOLIC PANELon Anion gap [Moles/Vol] 9 mmol/L 3 - 13 mmol/L [facility] Work Phone: [phone] Calcium [Mass/Vol] 8.9 mg/dL 8.4 - 10. 4 mg/dL [facility] Work Phone: [phone] Chloride [Moles/Vol] 96 mmol/L Low 98 - 107 mmol/L [facility] Work Phone: [phone] CO2 [Moles/Vol] 21 mmol/L Low 22 - 30 mmol/L [facility] Work Phone: [phone] Creatinine [Mass/Vol] 0.46 mg/dL Low 0.52 - 1.25 mg/dL [facility] Work Phone: [phone] EGFR IF NonAfrican Eritrean >90.0 >60 mL/min [facility] Work Phone: [phone] Comment on above: KDIGO guidelines pro vide the following GFR categories: Stage GFR(ml/min/1.73 m2) Terms G1 >=90 Normal or high G2 60-89 Mildly decreased* G3a 45-59 Mildly to moderately decreased G3b 30-44 Moderately to severely decreased G4 15-29 Severely decreased G5 <15 Kidney failure *Relative to young adult level. In the absence of evidence of kidney damage, neither GFR category G1 nor G2 fulfill the criteria for CKD. The CKD-EPI equation is validated in individuals 18 years of age and older. Currently the best equation for estimating glomerular filtration rate (GFR) from serum creatinine in children is the Bedside Robison equation. It is less accurate in patients with extremes of muscle mass, restriction of dietary protein, ingestion of creatine, extra-renal metabolism of creatinine, or treatment with medications that affect renal tubular creatinine secretion. GFR/1.73 sq M predicted among blacks MDRD (S/P/Bld) [Vol rate/Area] mL/min/{1.73_m2} >60 mL/min [facility] Work Phone: [phone] Glucose [Mass/Vol] 113 mg/dL High 70 - 100 mg/dL [facility] Work Phone: [phone] Interpretation and review of laboratory results Abnormal [facility] Work Phone: [phone] Potassium [Moles/Vol] 4.1 mmol/L 3.5 - 5.1 mmol/L [facility] Work Phone: Sodium [Moles/Vol] 126 mmol/L Low 135 - 145 mmol/L [facility] Work Phone: Urea nitrogen [Mass/Vol] 7 mg/dL 7 - 20 mg/dL [facility] Work Phone: Test Performed by [facility], [address] [place] [address] [facility] Work Phone: Basic Metabolic Panelon 03-0 -2020 Calcium [Mass/Vol] 8.9 mg/dL Normal 8.4-10.4 [facility] Comment on above: Performed By: #### B MP3 #### [facility] [address] [place] [address] Glucose [Mass/Vol] 113 mg/dL High 70-100 [facility] Comment on above: Performed By: #### B MP3 #### [facility] [place] [address] [place] [address] Urea nitrogen [Mass/Vol] 7 mg/dL Normal 7-20 [facility] Comment on above: Performed By: #### B MP3 #### [facility] [address] [place] [address] Anion gap [Moles/Vol] 9 mmol/L Normal 3-13 [facility] Comment on above: Performed By: #### B MP3 #### [facility] [address] [place] [address] CO2 [Moles/Vol] 21 mmol/L Low 22-30 [facility] Comment on above: Performed By: #### B MP3 #### [facility] [address] [place] [address] Creatinine [Mass/Vol] 0.46 mg/dL Low 0.52-1.25 [facility] Comment on above: Performed By: #### B MP3 #### [facility] [address] [place] [address] eGFR OTHER > 90.0 Normal >60 [facility] Comment on above: Result Comment: KDIG O guidelines provide the following GFR categories: Stage GFR(ml/min/1.73 m2) Terms G1 >=90 Normal or high G2 60-89 Mildly decreased* G3a 45-59 Mildly to moderately decreased G3b 30-44 Moderately to severely decreased G4 15-29 Severely decreased G5 <15 Kidney failure *Relative to young adult level. In the absence of evidence of kidney damage, neither GFR category G1 nor G2 fulfill the criteria for CKD. The CKD-EPI equation is validated in individuals 18 years of age and older. Currently the best equation for estimating glomerular filtration rate (GFR) from serum creatinine in children is the Bedside Robison equation. It is less accurate in patients with extremes of muscle mass, restriction of dietary protein, ingestion of creatine, extra-renal metabolism of creatinine, or treatment with medications that affect renal tubular creatinine secretion. Performed By: #### B MP3 #### [address] GFR/1.73 sq M.predicted among blacks MDRD (S/P/Bld) [Vol rate/Area] mL/min/{1.73_m2} Normal >60 [facility] Comment on above: Performed By: #### B MP3 #### [place] [address] [place] Potassium [Moles/Vol] 4.1 mmol/L Normal 3.5-5.1 [facility] Comment on above: Performed By: #### B MP3 #### [address] Chloride [Moles/Vol] 96 mmol/L Low 98-107 [facility] Comment on above: Performed By: #### B MP3 #### [place] [address] [place] Sodium [Moles/Vol] 126 mmol/L Low 135-145 [facility] Comment on above: Performed By: #### B MP3 #### [address] Anion gap [Moles/Vol] 6 mmol/L Normal 3-13 [facility] Comment on above: Performed By: #### B MP3 #### [place] [address] [place] Calcium [Mass/Vol] 8.4 mg/dL Normal 8.4-10.4 [facility] Comment on above: Performed By: #### B MP3 #### [facility] [address] [place], [place] CO2 [Moles/Vol] 22 mmol/L Normal 22-30 [facility] Comment on above: Performed By: #### B MP3 #### [facility] [address] [place], [place] Glucose [Mass/Vol] 91 mg/dL Normal 70-100 [facility] Comment on above: Performed By: #### B MP3 #### [facility] [address] [place], [place] Urea nitrogen [Mass/Vol] 7 mg/dL Normal 7-20 [facility] Comment on above: Performed By: #### B MP3 #### [facility] [address] [place], [place] Creatinine [Mass/Vol] 0.42 mg/dL Low 0.52-1.25 [facility] Comment on above: Performed By: #### B MP3 #### [facility] [address] [place], [place] eGFR OTHER > 90.0 Normal >60 [facility] Comment on above: Result Comment: KDIG O guidelines provide the following GFR categories: Stage GFR(ml/min/1.73 m2) Terms G1 >=90 Normal or high G2 60-89 Mildly decreased* G3a 45-59 Mildly to moderately decreased G3b 30-44 Moderately to severely decreased G4 15-29 Severely decreased G5 <15 Kidney failure *Relative to young adult level. In the absence of evidence of kidney damage, neither GFR category G1 nor G2 fulfill the criteria for CKD. The CKD-EPI equation is validated in individuals 18 years of age and older. Currently the best equation for estimating glomerular filtration rate (GFR) from serum creatinine in children is the Bedside Robison equation. It is less accurate in patients with extremes of muscle mass, restriction of dietary protein, ingestion of creatine, extra-renal metabolism of creatinine, or treatment with medications that affect renal tubular creatinine secretion. Performed By: #### B MP3 #### [facility] [address] [place], [place] GFR/1.73 sq M.predicted among blacks MDRD (S/P/Bld) [Vol rate/Area] mL/min/{1.73_m2} Normal >60 [facility] Comment on above: Performed By: #### B MP3 #### [facility] [address] [place], [place] Potassium [Moles/Vol] 3.6 mmol/L Normal 3.5-5.1 [facility] Comment on above: Performed By: #### B MP3 #### [facility] [address] [place], [place] Sodium [Moles/Vol] 125 mmol/L Low 135-145 [facility] Comment on above: Performed By: #### B MP3 #### [facility] [address] [place], [place] Chloride [Moles/Vol] 96 mmol/L Low 98-107 [facility] Comment on above: Performed By: #### B MP3 #### [facility] [address] [place], [place] Anion gap [Moles/Vol] 6 mmol/L 3 - 13 mmol/L [facility] Work Phone: Calcium [Mass/Vol] 8.4 mg/dL 8.4 - 10. 4 mg/dL [facility] Work Phone: Chloride [Moles/Vol] 96 mmol/L Low 98 - 107 mmol/L [facility] Work Phone: CO2 [Moles/Vol] 22 mmol/L 22 - 30 mmol/L [facility] Work Phone: Creatinine [Mass/Vol] 0.42 mg/dL Low 0.52 - 1.25 mg/dL [facility] Work Phone: EGFR IF NonAfrican Eritrean >90.0 >60 mL/min [facility] Work Phone: Comment on above: KDIGO guidelines pro vide the following GFR categories: Stage GFR(ml/min/1.73 m2) Terms G1 >=90 Normal or high G2 60-89 Mildly decreased* G3a 45-59 Mildly to moderately decreased G3b 30-44 Moderately to severely decreased G4 15-29 Severely decreased G5 <15 Kidney failure *Relative to young adult level. In the absence of evidence of kidney damage, neither GFR category G1 nor G2 fulfill the criteria for CKD. The CKD-EPI equation is validated in individuals 18 years of age and older. Currently the best equation for estimating glomerular filtration rate (GFR) from serum creatinine in children is the Bedside Robison equation. It is less accurate in patients with extremes of muscle mass, restriction of dietary protein, ingestion of creatine, extra-renal metabolism of creatinine, or treatment with medications that affect renal tubular creatinine secretion. GFR/1.73 sq M predicted among blacks MDRD (S/P/Bld) [Vol rate/Area] mL/min/{1.73_m2} >60 mL/min [facility] Work Phone: [phone] Glucose [Mass/Vol] 91 mg/dL 70 - 100 mg/dL [facility] Work Phone: [phone] Potassium [Moles/Vol] 3.6 mmol/L 3.5 - 5.1 mmol/L [facility] Work Phone: [phone] Sodium [Moles/Vol] 125 mmol/L Low 135 - 145 mmol/L [facility] Work Phone: [phone] Urea nitrogen [Mass/Vol] 7 mg/dL 7 - 20 mg/dL [facility] Work Phone: [phone] Magnesiumon 12-15-2020 Magnesium [Mass/Vol] 1.5 mg/dL Low 1.6-2.3 [facility] Comment on above: Performed By: #### B MP3 #### [facility] [address] [place] [phone] Magnesium [Mass/Vol] 1.5 mg/dL Low 1.6 - 2.3 mg/dL [facility] Work Phone: [phone] Osmolality, Urineon 12-16-19 Interpretation and review of laboratory results Abnormal [facility] Work Phone: [phone] Osmolality (U) [Osmolality] 244 mosm/kg Low 300 - 1000 mosm/kg [facility] Work Phone: [phone] Test Performed by [facility], [address] [place] [id number] [facility] Work Phone: Osmolality,Urineon Osmolality,Urine 244 mosm/kg Low 300-1000 [facility] Comment on above: Performed By: #### B MP3 #### [address] [address] Otheron 12-15-2020 Interpretation and review of laboratory results Abnormal [facility] Work Phone: Test Performed by [facility], [address] [place] [id number] [place] [address] Work Phone: Sodium, Ur Randomon 12-16-19 Sodium [Moles/Vol] 75 mmol/L Normal 30-90 [facility] Comment on above: Performed By: #### M G3, PHOS3, HEMDF, BMP3M #### [address] [address] Sodium, Urine, Randomon Sodium (U) [Moles/Vol] 75 mmol/L 30 - 90 mmol/L [facility] Work Phone: Test Performed by [facility], [address] [place] [id number] [place] [address] Work Phone: Acute Hepatitis Panelon Hep B Core IgM Not detected Normal Not-Detected [facility] Comment on above: Performed By: #### M G3, PHOS3, HEMDF, BMP3M #### [place] [address] [place] [address] Hep A Virus Ab,IgM Not detected Normal Not-Detected [facility] Comment on above: Performed By: #### M G3, PHOS3, HEMDF, BMP3M #### [address] [address] Hep C Antibody Not detected Normal Not-Detected [facility] Comment on above: Result Comment: Lucia ents with DETECTED Hepatitis C Ab results should have a new specimen submitted for supplemental testing with a Hepatitis C Quantitative RNA assay (viral load), if clinically indicated. Performed By: #### M G3, PHOS3, HEMDF, BMP3M #### [address] [address] Hep B Surface Ag Not detected Normal Not-Detected [facility] Comment on above: Performed By: #### M G3, PHOS3, HEMDF, BMP3M #### [facility] [address] [place] [address] CBC Auto Differentialon 03-0 Absolute Baso # 0.1 10*3/uL 0.0 - 0.2 10*3/uL [facility] Work Phone: Absolute Neut # 3.5 10*3/uL 1.8 - 7.0 10*3/uL [facility] Work Phone: [phone] Basophils/100 WBC (Bld) 1.3 % 0.0 - 2.0 % [facility] Work Phone: Eosinophils (Bld) [#/Vol] 0.1 10*3/uL 0.0 - 0.5 10*3/uL [facility] Work Phone: [phone] Eosinophils/100 WBC (Bld) 1.7 % 1.0 - 6.0 % [facility] Work Phone: Erythrocyte distribution width (RBC) [Ratio] 14.6 % High 11.5 - 14.5 % [facility] Work Phone: Granulocytes/100 WBC (Bld) 60.9 % 40.0 - 80.0 % [facility] Work Phone: Hematocrit (Bld) [Volume fraction] 34.9 % Low 35.0 - 47.0 % [facility] Work Phone: Hemoglobin (Bld) [Mass/Vol] 11.9 g/dL 11.7 - 16.0 g/dL [facility] Work Phone: [phone] Interpretation and review of laboratory results Abnormal [facility] Work Phone: 22 Lymphocytes (Bld) [#/Vol] 1.5 10*3/uL 1.0 - 4.3 10*3/uL [facility] Work Phone: 22 Lymphocytes/100 WBC (Bld) 26.5 % 20.0 - 40.0 % [facility] Work Phone: 22 MCH (RBC) [Entitic mass] 34.5 pg High 26.0 - 34.0 pg [employer] Work Phone: 1() MCHC (RBC) [Mass/Vol] 34.1 % 32.0 - 36.0 % [facility] Work Phone: 1() MCV (RBC) [Entitic vol] 101.2 fL High 79.0 - 98.0 fL [employer] Work Phone: 1() Monocytes (Bld) [#/Vol] 0.6 10*3/uL 0.0 - 0.8 10*3/uL [employer] Work Phone: 1() Monocytes/100 WBC (Bld) 9.6 % 2.0 - 10.0 % [employer] Work Phone: 1() Platelet mean volume (Bld) [Entitic vol] 9.0 fL 7.4 - 10.4 fL [employer] Work Phone: 1() Platelets (Bld) [#/Vol] 168 10*3/uL 140 - 440 10*3/uL [employer] Work Phone: 1() RBC (Bld) [#/Vol] 3.45 10*6/uL Low 3.80 - 5.2 0 10*6/uL [employer] Work Phone: 1() WBC (Bld) [#/Vol] 5.8 10*3/uL 3.6 - 10.7 10*3/uL [employer] Work Phone: 1() Test Performed by [facility], [address] [place] [address] [facility] Work Phone: 1() Comp Metabolic Panelon 12-14 ALP [Catalytic activity/Vol] 67 U/L Normal 38-126 [facility] Comment on above: Performed By: #### M G3, PHOS3, HEMDF, BMP3M #### [facility] [address] [place] [phone] ALT [Catalytic activity/Vol] 24 U/L Normal 0-34 [facility] Comment on above: Result Comment: The ALT test is performed by an updated assay method. Please note that the reference intervals have been changed and are now sex specific. Performed By: #### M G3, PHOS3, HEMDF, BMP3M #### [facility] [address] [place], [place] Calcium [Mass/Vol] 8.5 mg/dL Normal 8.4-10.4 [facility] Comment on above: Performed By: #### M G3, PHOS3, HEMDF, BMP3M #### [place] [address] [place], [place] Glucose [Mass/Vol] 87 mg/dL Normal 70-100 [facility] Comment on above: Performed By: #### M G3, PHOS3, HEMDF, BMP3M #### [place] [address] [place], [place] Protein [Mass/Vol] 5.7 g/dL Low 6.3-8.2 [facility] Comment on above: Performed By: #### M G3, PHOS3, HEMDF, BMP3M #### [place] [address] [place], [place] Urea nitrogen [Mass/Vol] 13 mg/dL Normal 7-20 [facility] Comment on above: Performed By: #### M G3, PHOS3, HEMDF, BMP3M #### [place] [address] [place], [place] Anion gap [Moles/Vol] 4 mmol/L Normal 3-13 [facility] Comment on above: Performed By: #### M G3, PHOS3, HEMDF, BMP3M #### [place] [address] [place], [place] AST [Catalytic activity/Vol] 41 U/L Normal 15-46 [facility] Comment on above: Performed By: #### M G3, PHOS3, HEMDF, BMP3M #### [place] [address] [place], [place] Bilirubin [Mass/Vol] 0.6 mg/dL Normal 0.2-1.3 [facility] Comment on above: Performed By: #### M G3, PHOS3, HEMDF, BMP3M #### [place] [address] [place], [place] CO2 [Moles/Vol] 24 mmol/L Normal 22-30 [facility] Comment on above: Performed By: #### M G3, PHOS3, HEMDF, BMP3M #### [facility] [address] [place], [place] Creatinine [Mass/Vol] 0.36 mg/dL Low 0.52-1.25 [facility] Comment on above: Performed By: #### M G3, PHOS3, HEMDF, BMP3M #### [facility] [address] [place], [place] eGFR OTHER > 90.0 Normal >60 [facility] Comment on above: Result Comment: KDIG O guidelines provide the following GFR categories: Stage GFR(ml/min/1.73 m2) Terms G1 >=90 Normal or high G2 60-89 Mildly decreased* G3a 45-59 Mildly to moderately decreased G3b 30-44 Moderately to severely decreased G4 15-29 Severely decreased G5 <15 Kidney failure *Relative to young adult level. In the absence of evidence of kidney damage, neither GFR category G1 nor G2 fulfill the criteria for CKD. The CKD-EPI equation is validated in individuals 18 years of age and older. Currently the best equation for estimating glomerular filtration rate (GFR) from serum creatinine in children is the Bedside Robison equation. It is less accurate in patients with extremes of muscle mass, restriction of dietary protein, ingestion of creatine, extra-renal metabolism of creatinine, or treatment with medications that affect renal tubular creatinine secretion. Performed By: #### M G3, PHOS3, HEMDF, BMP3M #### [facility] [address] [place], [place] GFR/1.73 sq M.predicted among blacks MDRD (S/P/Bld) [Vol rate/Area] mL/min/{1.73_m2} Normal >60 [facility] Comment on above: Performed By: #### M G3, PHOS3, HEMDF, BMP3M #### [facility] [address] [place], [place] Chloride [Moles/Vol] 102 mmol/L Normal 98-107 [facility] Comment on above: Performed By: #### M G3, PHOS3, HEMDF, BMP3M #### [facility] [address] [place], [place] Potassium [Moles/Vol] 3.3 mmol/L Low 3.5-5.1 [facility] Comment on above: Performed By: #### M G3, PHOS3, HEMDF, BMP3M #### [facility] [address] [place], [place] Sodium [Moles/Vol] 130 mmol/L Low 135-145 [facility] Comment on above: Performed By: #### M G3, PHOS3, HEMDF, BMP3M #### [facility] [address] [place], [place] Albumin [Mass/Vol] 3.0 g/dL Low 3.5-5.0 [facility] Comment on above: Performed By: #### M G3, PHOS3, HEMDF, BMP3M #### [facility] [address] [place], [place] Comprehensive Metabolic Pane lexa 12-14-2020 Albumin [Mass/Vol] 3.0 g/dL Low 3.5 - 5.0 g/dL [facility] Work Phone: [phone] ALP [Catalytic activity/Vol] 67 U/L 38 - 126 U/L [facility] Work Phone: [phone] [Catalytic activity/Vol] 24 U/L 0 - 34 U/L [facility] Work Phone: [phone] Comment on above: The ALT test is perf ormed by an updated assay method. Please note that the reference intervals have been changed and are now sex specific. Anion gap [Moles/Vol] 4 mmol/L 3 - 13 mmol/L [facility] Work Phone: [phone] [Catalytic activity/Vol] 41 U/L 15 - 46 U/L [facility] [facility] Work Phone: [phone] Bilirubin Ql (U) 0.6 mg/dL 0.2 - 1.3 mg/dL [facility] Work Phone: [phone] Calcium [Mass/Vol] 8.5 mg/dL 8.4 - 10. 4 mg/dL [facility] Work Phone: [phone] Chloride [Moles/Vol] 102 mmol/L 98 - 107 mmol/L [facility] Work Phone: [phone] [phone] [Moles/Vol] 24 mmol/L 22 - 30 mmol/L [facility] Work Phone: [phone] Creatinine [Mass/Vol] 0.36 mg/dL Low 0.52 - 1.25 mg/dL [facility] Work Phone: [phone] EGFR IF NonAfrican Eritrean >90.0 >60 mL/min [facility] Work Phone: [phone] Comment on above: KDIGO guidelines pro vide the following GFR categories: Stage GFR(ml/min/1.73 m2) Terms G1 >=90 Normal or high G2 60-89 Mildly decreased* G3a 45-59 Mildly to moderately decreased G3b 30-44 Moderately to severely decreased G4 15-29 Severely decreased G5 <15 Kidney failure *Relative to young adult level. In the absence of evidence of kidney damage, neither GFR category G1 nor G2 fulfill the criteria for CKD. The CKD-EPI equation is validated in individuals 18 years of age and older. Currently the best equation for estimating glomerular filtration rate (GFR) from serum creatinine in children is the Bedside Robison equation. It is less accurate in patients with extremes of muscle mass, restriction of dietary protein, ingestion of creatine, extra-renal metabolism of creatinine, or treatment with medications that affect renal tubular creatinine secretion. GFR/1.73 sq M predicted among blacks MDRD (S/P/Bld) [Vol rate/Area] mL/min/{1.73_m2} >60 mL/min [facility] Work Phone: [phone] Glucose [Mass/Vol] 87 mg/dL 70 - 100 mg/dL [facility] Work Phone: [phone] Potassium [Moles/Vol] 3.3 mmol/L Low 3.5 - 5.1 mmol/L [facility] Work Phone: [phone] Protein [Mass/Vol] 5.7 g/dL Low 6.3 - 8.2 g/dL [facility] Work Phone: [phone] Sodium [Moles/Vol] 130 mmol/L Low 135 - 145 mmol/L [facility] Work Phone: [phone] Urea nitrogen [Mass/Vol] 13 mg/dL 7 - 20 mg/dL [facility] Work Phone: Folateon 12-14-2020 Folate 14.4 ng/mL Normal 2.8-20.0 [facility] Comment on above: Performed By: #### M G3, PHOS3, HEMDF, BMP3M #### [address] [address] Folate 14.4 ng/mL 2.8 - 20.0 ng/mL [facility] Work Phone: Test Performed by [facility], [address] [place] [id number] [place] [address] Work Phone: Hemogram w/ Autodiffon 12-14 Abs Baso Cnt 0.1 10*3/uL Normal 0.0-0.2 [facility] Comment on above: Performed By: #### M G3, PHOS3, HEMDF, BMP3M #### [address] Abs Neutrophile Cnt 3.5 10*3/uL Normal 1.8-7.0 [facility] Comment on above: Performed By: #### M G3, PHOS3, HEMDF, BMP3M #### [address] [address] Basophils/100 WBC (Bld) 1.3 % Normal 0.0-2.0 [facility] Comment on above: Performed By: #### M G3, PHOS3, HEMDF, BMP3M #### [address] Eosinophils (Bld) [#/Vol] 0.1 10*3/uL Normal 0.0-0.5 [facility] Comment on above: Performed By: #### M G3, PHOS3, HEMDF, BMP3M #### [address] [address] Eosinophils/100 WBC (Bld) 1.7 % Normal 1.0-6.0 [facility] Comment on above: Performed By: #### M G3, PHOS3, HEMDF, BMP3M #### [address] [place] Erythrocyte distribution width (RBC) [Ratio] 14.6 % High 11.5-14.5 [facility] Comment on above: Performed By: #### M G3, PHOS3, HEMDF, BMP3M #### [address] [place] Granulocytes/100 WBC (Bld) 60.9 % Normal 40.0-80.0 [facility] Comment on above: Performed By: #### M G3, PHOS3, HEMDF, BMP3M #### [address] Hematocrit (Bld) [Volume fraction] 34.9 % Low 35.0-47.0 [facility] Comment on above: Performed By: #### M G3, PHOS3, HEMDF, BMP3M #### [address] [place] Hemoglobin (Bld) [Mass/Vol] 11.9 g/dL Normal 11.7-16.0 [facility] Comment on above: Performed By: #### M G3, PHOS3, HEMDF, BMP3M #### [address] [place] Lymphocytes (Bld) [#/Vol] 1.5 10*3/uL Normal 1.0-4.3 [facility] Comment on above: Performed By: #### M G3, PHOS3, HEMDF, BMP3M #### [address] [place] Lymphocytes/100 WBC (Bld) 26.5 % Normal 20.0-40.0 [facility] Comment on above: Performed By: #### M G3, PHOS3, HEMDF, BMP3M #### [address] [place], [place] MCH (RBC) [Entitic mass] 34.5 pg High 26.0-34.0 [facility] Comment on above: Performed By: #### M G3, PHOS3, HEMDF, BMP3M #### [address] [place] MCHC 34.1 % Normal 32.0-36.0 [facility] Comment on above: Performed By: #### M G3, PHOS3, HEMDF, BMP3M #### [facility] [address] [place], [place] MCV (RBC) [Entitic vol] 101.2 fL High 79.0-98.0 [facility] Comment on above: Performed By: #### M G3, PHOS3, HEMDF, BMP3M #### [address] [place] Monocytes (Bld) [#/Vol] 0.6 10*3/uL Normal 0.0-0.8 [facility] Comment on above: Performed By: #### M G3, PHOS3, HEMDF, BMP3M #### [address] [address] [place], [place] Monocytes/100 WBC (Bld) 9.6 % Normal 2.0-10.0 [facility] Comment on above: Performed By: #### M G3, PHOS3, HEMDF, BMP3M #### [address] [place] Platelet mean volume (Bld) [Entitic vol] 9.0 fL Normal 7.4-10.4 [facility] Comment on above: Performed By: #### M G3, PHOS3, HEMDF, BMP3M #### [address] [place], [place] Platelets (Bld) [#/Vol] 168 10*3/uL Normal 140-440 [facility] Comment on above: Performed By: #### M G3, PHOS3, HEMDF, BMP3M #### [address] [address] [place], [place] RBC (Bld) [#/Vol] 3.45 10*6/uL Low 3.80-5.20 [facility] Comment on above: Performed By: #### M G3, PHOS3, HEMDF, BMP3M #### [address] [address] WBC (Bld) [#/Vol] 5.8 10*3/uL Normal 3.6-10.7 [facility] Comment on above: Performed By: #### M G3, PHOS3, HEMDF, BMP3M #### [address] [address] Hepatitis Panel, Acuteon HAV IgM IA Qn (S) NOT DETECTED Not-Detected NA [facility] Work Phone: [phone] Hep B Core Ab, IgM NOT DETECTED Not-Detected NA [facility] Work Phone: [phone] Hepatitis B Surface Ag NOT DETECTED Not-Detected NA [facility] Work Phone: [phone] Hepatitis C Ab NOT DETECTED Not-Detected NA [facility] Work Phone: [phone] Comment on above: Patients with DETECT ED Hepatitis C Ab results should have a new specimen submitted for supplemental testing with a Hepatitis C Quantitative RNA assay (viral load), if clinically indicated. Test [facility], [address] [place] [address] [facility] Work Phone: [phone] Magnesiumon 12-14-2020 Magnesium [Mass/Vol] 1.3 mg/dL Low 1.6-2.3 [facility] Comment on above: Performed By: #### M G3, PHOS3, HEMDF, BMP3M #### [facility] [address] [address] Magnesium [Mass/Vol] 1.3 mg/dL Low 1.6 - 2.3 mg/dL [facility] Work Phone: [phone] Otheron 12-14-2020 Interpretation and review of laboratory results Abnormal [facility] Work Phone: [phone] Test Performed by [facility], [address] [place] [address] [facility] Work Phone: [phone] CBC auto differentialon 03-0 Absolute Baso # 0.1 10*3/uL 0.0 - 0.2 10*3/uL [facility] Work Phone: [phone] Absolute Neut # 3.9 10*3/uL 1.8 - 7.0 10*3/uL [facility] Work Phone: [phone] Basophils/100 WBC (Bld) 1.1 % 0.0 - 2.0 % [facility] Work Phone: [phone] Eosinophils (Bld) [#/Vol] 0.0 10*3/uL 0.0 - 0.5 10*3/uL [facility] Work Phone: [phone] Eosinophils/100 WBC (Bld) 0.6 % Low 1.0 - 6.0 % [facility] Work Phone: Erythrocyte distribution width (RBC) [Ratio] 14.7 % High 11.5 - 14.5 % [facility] Work Phone: Granulocytes/100 WBC (Bld) 66.9 % 40.0 - 80.0 % [facility] Work Phone: Hematocrit (Bld) [Volume fraction] 35.6 % 35.0 - 47.0 % [employer] Work Phone: Hemoglobin (Bld) [Mass/Vol] 12.1 g/dL 11.7 - 16.0 g/dL [facility] Work Phone: Interpretation and review of laboratory results Abnormal [employer] Work Phone: Lymphocytes (Bld) [#/Vol] 1.2 10*3/uL 1.0 - 4.3 10*3/uL [facility] Work Phone: [phone] Lymphocytes/100 WBC (Bld) 20.6 % 20.0 - 40.0 % [employer] Work Phone: [phone] MCH (RBC) [Entitic mass] 34.0 pg 26.0 - 34.0 pg [facility] Work Phone: MCHC (RBC) [Mass/Vol] 33.9 % 32.0 - 36.0 % [facility] Work Phone: MCV (RBC) [Entitic vol] 100.2 fL High 79.0 - 98.0 fL [facility] Work Phone: Monocytes (Bld) [#/Vol] 0.6 10*3/uL 0.0 - 0.8 10*3/uL [employer] Work Phone: Monocytes/100 WBC (Bld) 10.8 % High 2.0 - 10.0 % [employer] Work Phone: Platelet mean volume (Bld) [Entitic vol] 8.8 fL 7.4 - 10.4 fL [employer] Work Phone: Platelets (Bld) [#/Vol] 185 10*3/uL 140 - 440 10*3/uL [employer] Work Phone: [phone] RBC (Bld) [#/Vol] 3.55 10*6/uL Low 3.80 - 5.2 0 10*6/uL [employer] Work Phone: WBC (Bld) [#/Vol] 5.8 10*3/uL 3.6 - 10.7 10*3/uL [employer] Work Phone: Test Performed by [facility], [address] [place] [address] [employer] Work Phone: [phone] CR Abdomen APon 12-13-2020 CR Abdomen AP Patient Name: JAZMIN JOHNSON Diagnostic Radiology ACCESSION EXAM DATE/TIME PROCEDURE ORDERING PROVIDER [id number] 12/13/2020 09:25 EST CR Abdomen AP PHANGUREH, DO, INDERPARTAP DEX CPT code 65832 Reason For Exam (CR Abdomen AP) MRI clearance Report CLINICAL INDICATION: MRI clearance. TECHNIQUE: Single view of the abdomen and pelvis. COMPARISON: CT chest, abdomen, pelvis 10/19/2020 FINDINGS/IMPRESSION: Scattered air and stool throughout the bowel without dilatation. No radiopaque foreign body. Degenerative spondylosis and scoliotic curvature in the visualized spine. Probable calcified granuloma involving the left gluteal soft tissues. Report Dictated on Final Dictated: 12/13/2020 9:25 am Dictating Physician: MD LOPEZ VLADIMIR Signed Date and Time: 12/13/2020 9:28 am Signed by: MD LOPEZ VLADIMIR Transcribed Date and Time: 12/13/2020 9:25 Normal [facility] CULTURE URINEon 12-13-2020 CULTURE URINE CULTURE URINE --> Status: F No growth (<1,000 CFU/ml). Normal [facility] Comment on above: Performed By: #### A PTT, FIBGN, LDH3, DDI2, B12, CMP3, FERR3, HEMDF, CRP2, PT, FOLT3 #### [facility] [address] [place], [place] #### [id number] #### [facility] [address] [place] [address] Comp Panel with Mg Reflexon 12-13-2020 ALP [Catalytic activity/Vol] 77 U/L Normal 38-126 [facility] Comment on above: Result Comment: Slig htly hemolysed, interpret with caution. Performed By: #### B MP3 #### [facility] [address] [place], [place] ALT [Catalytic activity/Vol] 36 U/L High 0-34 [facility] Comment on above: Result Comment: The ALT test is performed by an updated assay method. Please note that the reference intervals have been changed and are now sex specific. Performed By: #### B MP3 #### [facility] [address] [place], [place] Anion gap [Moles/Vol] 7 mmol/L Normal 3-13 [facility] Comment on above: Performed By: #### B MP3 #### [facility] [address] [place], [place] AST [Catalytic activity/Vol] 76 U/L High 15-46 [facility] Comment on above: Result Comment: Slig htly hemolysed, interpret with caution. Performed By: #### B MP3 #### [facility] [address] [place], [place] Calcium [Mass/Vol] 8.8 mg/dL Normal 8.4-10.4 [facility] Comment on above: Performed By: #### B MP3 #### [facility] [address] [place], [place] CO2 [Moles/Vol] 26 mmol/L Normal 22-30 [facility] Comment on above: Performed By: #### B MP3 #### [facility] [address] [place] [address] Glucose [Mass/Vol] 100 mg/dL Normal 70-100 [facility] Comment on above: Performed By: #### B MP3 #### [facility] [address] [place] [address] Protein [Mass/Vol] 6.5 g/dL Normal 6.3-8.2 [facility] Comment on above: Performed By: #### B MP3 #### [facility] [address] [place] [address] Urea nitrogen [Mass/Vol] 13 mg/dL Normal 7-20 [facility] Comment on above: Performed By: #### B MP3 #### [facility] [address] [place] [address] Bilirubin [Mass/Vol] 1.0 mg/dL Normal 0.2-1.3 [facility] Comment on above: Performed By: #### B MP3 #### [facility] [address] [place] [address] Creatinine [Mass/Vol] 0.38 mg/dL Low 0.52-1.25 [facility] Comment on above: Performed By: #### B MP3 #### [facility] [address] [place], [place] eGFR OTHER > 90.0 Normal >60 [facility] Comment on above: Result Comment: KDIG O guidelines provide the following GFR categories: Stage GFR(ml/min/1.73 m2) Terms G1 >=90 Normal or high G2 60-89 Mildly decreased* G3a 45-59 Mildly to moderately decreased G3b 30-44 Moderately to severely decreased G4 15-29 Severely decreased G5 <15 Kidney failure *Relative to young adult level. In the absence of evidence of kidney damage, neither GFR category G1 nor G2 fulfill the criteria for CKD. The CKD-EPI equation is validated in individuals 18 years of age and older. Currently the best equation for estimating glomerular filtration rate (GFR) from serum creatinine in children is the Bedside Robison equation. It is less accurate in patients with extremes of muscle mass, restriction of dietary protein, ingestion of creatine, extra-renal metabolism of creatinine, or treatment with medications that affect renal tubular creatinine secretion. Performed By: #### B MP3 #### [address] [place] [address] GFR/1.73 sq M.predicted among blacks MDRD (S/P/Bld) [Vol rate/Area] mL/min/{1.73_m2} Normal >60 [facility] Comment on above: Performed By: #### B MP3 #### [address] [place] [address] Albumin [Mass/Vol] 3.6 g/dL Normal 3.5-5.0 [facility] Comment on above: Performed By: #### B MP3 #### [address] [place] Chloride [Moles/Vol] 97 mmol/L Low 98-107 [facility] Comment on above: Performed By: #### B MP3 #### [address] [place] [address] Potassium [Moles/Vol] 3.7 mmol/L Normal 3.5-5.1 [facility] Comment on above: Result Comment: Slig htly hemolysed, interpret with caution. Performed By: #### B MP3 #### [address] [place] [address] Sodium [Moles/Vol] 130 mmol/L Low 135-145 [facility] Comment on above: Performed By: #### B MP3 #### [address] [place] [address] Comprehensive Metabolic Pane l w/ Reflex to MGon 12-13-2020 Albumin [Mass/Vol] 3.6 g/dL 3.5 - 5.0 g/dL [facility] Work Phone: ALP [Catalytic activity/Vol] 77 U/L 38 - 126 U/L [facility] Work Phone: Comment on above: Slightly hemolysed, interpret with caution. ALT [Catalytic activity/Vol] 36 U/L High 0 - 34 U/L [facility] Work Phone: Comment on above: The ALT test is perf ormed by an updated assay method. Please note that the reference intervals have been changed and are now sex specific. Anion gap [Moles/Vol] 7 mmol/L 3 - 13 mmol/L [facility] Work Phone: AST [Catalytic activity/Vol] 76 U/L High 15 - 46 U/L [facility] Work Phone: [phone] Comment on above: Slightly hemolysed, interpret with caution. Bilirubin Ql (U) 1.0 mg/dL 0.2 - 1.3 mg/dL [facility] Work Phone: [phone] Calcium [Mass/Vol] 8.8 mg/dL 8.4 - 10. 4 mg/dL [facility] Work Phone: [phone] Chloride [Moles/Vol] 97 mmol/L Low 98 - 107 mmol/L [facility] Work Phone: [phone] CO2 [Moles/Vol] 26 mmol/L 22 - 30 mmol/L [facility] Work Phone: [phone] Creatinine [Mass/Vol] 0.38 mg/dL Low 0.52 - 1.25 mg/dL [facility] Work Phone: EGFR IF NonAfrican Eritrean >90.0 >60 mL/min [facility] Work Phone: Comment on above: KDIGO guidelines pro vide the following GFR categories: Stage GFR(ml/min/1.73 m2) Terms G1 >=90 Normal or high G2 60-89 Mildly decreased* G3a 45-59 Mildly to moderately decreased G3b 30-44 Moderately to severely decreased G4 15-29 Severely decreased G5 <15 Kidney failure *Relative to young adult level. In the absence of evidence of kidney damage, neither GFR category G1 nor G2 fulfill the criteria for CKD. The CKD-EPI equation is validated in individuals 18 years of age and older. Currently the best equation for estimating glomerular filtration rate (GFR) from serum creatinine in children is the Bedside Robison equation. It is less accurate in patients with extremes of muscle mass, restriction of dietary protein, ingestion of creatine, extra-renal metabolism of creatinine, or treatment with medications that affect renal tubular creatinine secretion. GFR/1.73 sq M predicted among blacks MDRD (S/P/Bld) [Vol rate/Area] mL/min/{1.73_m2} >60 mL/min [employer] Work Phone: [phone] Glucose [Mass/Vol] 100 mg/dL 70 - 100 mg/dL [facility] Work Phone: [phone] Interpretation and review of laboratory results Abnormal [facility] Work Phone: [phone] Potassium [Moles/Vol] 3.7 mmol/L 3.5 - 5.1 mmol/L [facility] Work Phone: [phone] Comment on above: Slightly hemolysed, interpret with caution. Protein [Mass/Vol] 6.5 g/dL 6.3 - 8.2 g/dL [facility] Work Phone: [phone] Sodium [Moles/Vol] 130 mmol/L Low 135 - 145 mmol/L [facility] Work Phone: [phone] Urea nitrogen [Mass/Vol] 13 mg/dL 7 - 20 mg/dL [facility] Work Phone: [phone] Test Performed by [facility], [facility] [place] [place] [address] [facility] Work Phone: [phone] Culture, Urineon 12-13-2020 Bacteria identified Cx Nom (U) No growth (<1,000 CFU/ml). [employer] Work Phone: [phone] Test Performed by [facility], [facility] [place] [place] [address] [facility] Work Phone: [phone] EKG 12 Lead - Chest Painon 0 12-13-2020 [facility] Test Date: 2020-12-12 Pat Name: Jazmin Johnson Department: [facility] Room: 1334 Gender: F [employer]: OLAF : 1950 Requested By: JACK MACHUCA Order Number: [id number] Reading MD: Pepe Donaldson Measurements Intervals Entiat Rate: 94 P: 28 [place]: 127 QRS: -26 QRSD: 105 T: 61 QT: 358 QTc: 448 Interpretive Statements Sinus rhythm Borderline left axis deviation Low voltage, precordial leads Electronically Signed On 3-2-2021 8:30:57 EST by Pepe Donaldson [employer] [employer] Work Phone: [place], [facility] Incoming Cardiology Results From [facility] - 12/13/2020 8:31 AM EST [facility] Test Date: 2020-12-12 Pat Name: Jazmin Johnson Department: [facility] Room: [facility] Gender: F [employer]: OLAF : 1950 Requested By: JACK MACHUCA Order Number: [id number] Reading MD: Pepe Donaldson Measurements Intervals [place]iat Rate: 94 P: 28 [place]: 127 QRS: -26 QRSD: 105 T: 61 QT: 358 QTc: 448 Interpretive Statements Sinus rhythm Borderline left axis deviation Low voltage, precordial leads Electronically Signed On 12-13-2020 8:30:57 EST by Pepe MÁRQUEZ Work Phone: Hemogram w/ Autodiffon 12-13 Abs Baso Cnt 0.1 10*3/uL Normal 0.0-0.2 [facility] Comment on above: Performed By: #### B MP3 #### [facility] [address] [place] [address] Abs Neutrophile Cnt 3.9 10*3/uL Normal 1.8-7.0 [facility] Comment on above: Performed By: #### B MP3 #### [facility] [address] [place] [address] Basophils/100 WBC (Bld) 1.1 % Normal 0.0-2.0 [facility] Comment on above: Performed By: #### B MP3 #### [facility] [address] [place] [address] Eosinophils (Bld) [#/Vol] 0.0 10*3/uL Normal 0.0-0.5 [facility] Comment on above: Performed By: #### B MP3 #### [facility] [address] [place] [address] Eosinophils/100 WBC (Bld) 0.6 % Low 1.0-6.0 [facility] Comment on above: Performed By: #### B MP3 #### [facility] [address] [place], [place] Erythrocyte distribution width (RBC) [Ratio] 14.7 % High 11.5-14.5 [facility] Comment on above: Performed By: #### B MP3 #### [facility] [address] [place], [place] Granulocytes/100 WBC (Bld) 66.9 % Normal 40.0-80.0 [facility] Comment on above: Performed By: #### B MP3 #### [facility] [address] [place], [place] Hematocrit (Bld) [Volume fraction] 35.6 % Normal 35.0-47.0 [facility] Comment on above: Performed By: #### B MP3 #### [place] [address] [place], [place] Hemoglobin (Bld) [Mass/Vol] 12.1 g/dL Normal 11.7-16.0 [facility] Comment on above: Performed By: #### B MP3 #### [facility] [address] [place], [place] Lymphocytes (Bld) [#/Vol] 1.2 10*3/uL Normal 1.0-4.3 [facility] Comment on above: Performed By: #### B MP3 #### [facility] [address] [place], [place] Lymphocytes/100 WBC (Bld) 20.6 % Normal 20.0-40.0 [facility] Comment on above: Performed By: #### B MP3 #### [facility] [address] [place], [place] MCH (RBC) [Entitic mass] 34.0 pg Normal 26.0-34.0 [facility] Comment on above: Performed By: #### B MP3 #### [facility] [address] [place], [place] MCHC 33.9 % Normal 32.0-36.0 [facility] Comment on above: Performed By: #### B MP3 #### [facility] [address] [place] [address] MCV (RBC) [Entitic vol] 100.2 fL High 79.0-98.0 [facility] Comment on above: Performed By: #### B MP3 #### [facility] [address] [place] [address] Monocytes (Bld) [#/Vol] 0.6 10*3/uL Normal 0.0-0.8 [facility] Comment on above: Performed By: #### B MP3 #### [facility] [address] [place] [address] Monocytes/100 WBC (Bld) 10.8 % High 2.0-10.0 [facility] Comment on above: Performed By: #### B MP3 #### [place] [address] [place] [address] Platelet mean volume (Bld) [Entitic vol] 8.8 fL Normal 7.4-10.[address] [facility] Comment on above: Performed By: #### B MP3 #### [place] [place] [address] Platelets (Bld) [#/Vol] 185 10*3/uL Normal 140-440 [facility] Comment on above: Performed By: #### B MP3 #### [facility] [address] [place] [address] RBC (Bld) [#/Vol] 3.55 10*6/uL Low 3.80-5.20 [facility] Comment on above: Performed By: #### B MP3 #### [place] [place] [address] WBC (Bld) [#/Vol] 5.8 10*3/uL Normal 3.6-10.7 [facility] Comment on above: Performed By: #### B MP3 #### [address] [place] [address] MRI BRAIN WO CONTRASTon 03-0 Patient Name: JAZMIN JOHNSON Magnetic Resonance Imaging ACCESSION EXAM DATE/TIME PROCEDURE ORDERING PROVIDER [id number] 12/13/2020 18:00 EST MRI Brain w/o Contrast [id number] -ROBERT VERNON CPT code 25851 Reason For Exam (MRI Brain w/o Contrast) subdural hematoma, altered mental status Report MRI OF THE BRAIN WITHOUT GADOLINIUM CLINICAL INDICATION: subdural hematoma, altered mental status TECHNIQUE: Routine MRI of the brain without gadolinium was ordered, patient could only tolerate log cooker images, diffusion, sagittal T1 and axial FLAIR. Examination compromised by motion artifact. COMPARISON: CT brain from 12/12/2020. FINDINGS: No evidence of acute infarct on diffusion-weighted imaging. Small bilateral subdural hemorrhages unchanged. No mass effect or midline shift. Some edema in the anterior temporal lobes and caudal aspect of frontal lobes compatible with history of trauma. There is some adjacent bifrontal and right temporal subarachnoid and probably tiny parenchymal hemorrhages. IMPRESSION: 1. Small bilateral subdural hemorrhages unchanged. Bitemporal and bifrontal edema, with some overlying subarachnoid and probably tiny parenchymal hemorrhages. Findings similar to the previous CT. Limited study. Report Dictated on --- Final --- Dictated: 12/13/2020 6:38 pm Dictating Physician: MD STONE JOHN R Signed Date and Time: 12/13/2020 6:43 pm Signed by: MD STONE JOHN R Transcribed Date and Time: 12/13/2020 6:38 [facility] Work Phone: [place] From [facility] - 12/13/2020 6:44 PM EST [facility]: [id number] Imaging ACCESSION EXAM DATE/TIME PROCEDURE ORDERING PROVIDER [id number] 12/13/2020 18:00 EST MRI Brain w/o Contrast [id number] CatarinaROBERT VERNON CPT code 89242 Reason For Exam (MRI Brain w/o Contrast) subdural hematoma, altered mental status Report MRI OF THE BRAIN WITHOUT GADOLINIUM CLINICAL INDICATION: subdural hematoma, altered mental status TECHNIQUE: Routine MRI of the brain without gadolinium was ordered, patient could only tolerate log cooker images, diffusion, sagittal T1 and axial FLAIR. Examination compromised by motion artifact. COMPARISON: CT brain from 12/12/2020. FINDINGS: No evidence of acute infarct on diffusion-weighted imaging. Small bilateral subdural hemorrhages unchanged. No mass effect or midline shift. Some edema in the anterior temporal lobes and caudal aspect of frontal lobes compatible with history of trauma. There is some adjacent bifrontal and right temporal subarachnoid and probably tiny parenchymal hemorrhages. IMPRESSION: 1. Small bilateral subdural hemorrhages unchanged. Bitemporal and bifrontal edema, with some overlying subarachnoid and probably tiny parenchymal hemorrhages. Findings similar to the previous CT. Limited study. Report Dictated on --- Final --- Dictated: 12/13/2020 6:38 pm Dictating Physician: MD STONE JOHN R Signed Date and Time: 12/13/2020 6:43 pm Signed by: MD STONE JOHN R Transcribed Date and Time: 12/13/2020 6:38 [facility] Work Phone: MRI Brain w/o Contraston MRI Brain w/o Contrast [id number] Magnetic Resonance Imaging ACCESSION EXAM DATE/TIME PROCEDURE ORDERING PROVIDER [id number] 12/13/2020 18:00 EST MRI Brain w/o Contrast [id number] ROBERT BERGMAN CPT code 20264 Reason For Exam (MRI Brain w/o Contrast) subdural hematoma, altered mental status Report MRI OF THE BRAIN WITHOUT GADOLINIUM CLINICAL INDICATION: subdural hematoma, altered mental status TECHNIQUE: Routine MRI of the brain without gadolinium was ordered, patient could only tolerate log cooker images, diffusion, sagittal T1 and axial FLAIR. Examination compromised by motion artifact. COMPARISON: CT brain from 12/12/2020. FINDINGS: No evidence of acute infarct on diffusion-weighted imaging. Small bilateral subdural hemorrhages unchanged. No mass effect or midline shift. Some edema in the anterior temporal lobes and caudal aspect of frontal lobes compatible with history of trauma. There is some adjacent bifrontal and right temporal subarachnoid and probably tiny parenchymal hemorrhages. IMPRESSION: 1. Small bilateral subdural hemorrhages unchanged. Bitemporal and bifrontal edema, with some overlying subarachnoid and probably tiny parenchymal hemorrhages. Findings similar to the previous CT. Limited study. Report Dictated on Final Dictated: 12/13/2020 6:38 pm Dictating Physician: MD STONE JOHN R Signed Date and Time: 12/13/2020 6:43 pm Signed by: MD STONE JOHN R Transcribed Date and Time: 12/13/2020 6:[address] [facility] XR ABDOMEN (KUB) (SINGLE AP VIEW)on 12-13-2020 [place], [facility] Incoming Radiology Results From [facility] - 12/13/2020 9:29 AM EST Patient Name: JAZMIN JOHNSON Diagnostic Radiology ACCESSION EXAM DATE/TIME PROCEDURE ORDERING PROVIDER [id number] 12/13/2020 09:25 EST CR Abdomen AP PHANGUREH, DO, INDERPARTAP DEX CPT code 14107 Reason For Exam (CR Abdomen AP) MRI clearance Report CLINICAL INDICATION: MRI clearance. TECHNIQUE: Single view of the abdomen and pelvis. COMPARISON: CT chest, abdomen, pelvis 10/19/2020 FINDINGS/IMPRESSION: Scattered air and stool throughout the bowel without dilatation. No radiopaque foreign body. Degenerative spondylosis and scoliotic curvature in the visualized spine. Probable calcified granuloma involving the left gluteal soft tissues. Report Dictated on --- Final --- Dictated: 12/13/2020 9:25 am Dictating Physician: MD LOPEZ VLADIMIR Signed Date and Time: 12/13/2020 9:28 am Signed by: MD LOPEZ VLADIMIR Transcribed Date and Time: 12/13/2020 9:25 [facility] Work Phone: Patient Name: JAZMIN JOHNSON Diagnostic Radiology ACCESSION EXAM DATE/TIME PROCEDURE ORDERING PROVIDER [id number] 12/13/2020 09:25 EST CR Abdomen AP PHANGUREH, DO, INDERPARTAP DEX CPT code 20183 Reason For Exam (CR Abdomen AP) MRI clearance Report CLINICAL INDICATION: MRI clearance. TECHNIQUE: Single view of the abdomen and pelvis. COMPARISON: CT chest, abdomen, pelvis 10/19/2020 FINDINGS/IMPRESSION: Scattered air and stool throughout the bowel without dilatation. No radiopaque foreign body. Degenerative spondylosis and scoliotic curvature in the visualized spine. Probable calcified granuloma involving the left gluteal soft tissues. Report Dictated on --- Final --- Dictated: 12/13/2020 9:25 am Dictating Physician: MD LOPEZ VLADIMIR Signed Date and Time: 12/13/2020 9:28 am Signed by: MD LOPEZ VLADIMIR Transcribed Date and Time: 12/13/2020 9:25 [facility] Work Phone: Add On Lab Teston 12-12-2020 Sodium [Moles/Vol] Accepted [facility] Work Phone: Comment on above: Specimen available & acceptable for analysis. Test Per[facility] by [facility], [address] [place] [id number] [facility] Work Phone: Add on test from HISon 12-12 Add on test from HIS Accepted Normal [facility] Comment on above: Result Comment: Spec imen available & acceptable for analysis. Performed By: #### M G3, PHOS3, HEMDF, BMP3M #### [facility] [employer] [address] [place] [phone] Ammoniaon 12-12-2020 Ammonia (P) [Mass/Vol] ug/dL Normal 9-30 [facility] Comment on above: Result Comment: Slig htly hemolysed, interpret with caution. Performed By: #### B MP3 #### [facility] [employer] [address] [place] [phone] Ammonia (P) [Mass/Vol] ug/dL 9 - 30 umol/L [facility] Work Phone: Comment on above: Slightly hemolysed, interpret with caution. Test Performed by [facility], [facility] [place] [address] [facility] Work Phone: Blood Gas, Venouson 12-13-19 21 Base Excess, Hira 0.9 mmol/L -3.0 - 3.0 mmol/L [employer] Work Phone: HCO3, Venous 25.1 mmol/L 23.0 - 27.0 mmol/L [employer] Work Phone: Hemoglobin (Bld) [Mass/Vol] 14.9 g/dL ScreenOnly [employer] Work Phone: [phone] Interpretation and review of laboratory results Abnormal [employer] Work Phone: [phone] Oxygen saturation in Blood 90.9 % High 60.0 - 85.0 % [employer] Work Phone: [phone] pCO2, Hira 38.8 mm[Hg] Low 40.0 - 55.0 mm[Hg] [employer] Work Phone: [phone], Hira 7.429 [facility] Work Phone: [phone] pO2, Hira 64.2 mm[Hg] High 30.0 - 50.0 mm[Hg] [facility] Work Phone: [phone] Sodium [Moles/Vol] No data [facility] Work Phone: [phone] (Calc), Hira 26.3 mmol/L 24.0 - 28.0 mmol/L [facility] Work Phone: [phone] Test Performed by [facility] [employer], [address] [place] [address] [facility] Work Phone: [phone] Blood Gas,Venouson 1 CO2 [Moles/Vol] 26.3 mmol/L Normal 24.0-28.0 [facility] Comment on above: Performed By: #### B MP3 #### [facility] [employer] [address] [place] [phone] HCO3 (Bld) [Moles/Vol] 25.1 mmol/L Normal 23.0-27.[address] [facility] Comment on above: Performed By: #### B MP3 #### [facility] [employer] [address] [place] [phone] Hemoglobin (Bld) [Mass/Vol] 14.9 g/dL Normal [employer] Comment on above: Performed By: #### B MP3 #### [facility] [address] [place], [place] Oxygen (Bld) [Partial pressure] 64.2 mm[Hg] High 30.0-50.0 [facility] Comment on above: Performed By: #### B MP3 #### [facility] [address] [place], [place] Oxygen saturation in Blood 90.9 % High 60.0-85.0 [facility] Comment on above: Performed By: #### B MP3 #### [facility] [address] [place], [place] pCO2 38.8 mm[Hg] Low 40.0-55.0 [facility] Comment on above: Performed By: #### B MP3 #### [facility] [address] [place], [place] pH 7.429 Normal 7.330-7.430 [facility] Comment on above: Performed By: #### B MP3 #### [facility] [address] [place], [place] Std Base Excess 0.9 mmol/L Normal -3.0-3.0 [facility] Comment on above: Performed By: #### B MP3 #### [facility] [address] [place], [place] FIO2 No data Normal [facility] Comment on above: Performed By: #### B MP3 #### [facility] [address] [place], [place] CBC Auto Differentialon 03-0 Absolute Baso # 0.0 10*3/uL 0.0 - 0.2 10*3/uL [facility] Work Phone: Absolute Neut # 6.0 10*3/uL 1.8 - 7.0 10*3/uL [facility] Work Phone: Basophils/100 WBC (Bld) 0.4 % 0.0 - 2.0 % [facility] Work Phone: Eosinophils (Bld) [#/Vol] 0.0 10*3/uL 0.0 - 0.5 10*3/uL [employer] Work Phone: [phone] Eosinophils/100 WBC (Bld) 0.2 % Low 1.0 - 6.0 % [employer] Work Phone: Erythrocyte distribution width (RBC) [Ratio] 14.7 % High 11.5 - 14.5 % [employer] Phone: Granulocytes/100 WBC (Bld) 79.2 % 40.0 - 80.0 % [employer] Work Phone: Hematocrit (Bld) [Volume fraction] 41.0 % 35.0 - 47.0 % [employer] Work Phone: [phone] Hemoglobin (Bld) [Mass/Vol] 13.9 g/dL 11.7 - 16.0 g/dL [employer] Phone: [phone] Interpretation and review of laboratory results Abnormal [employer] Phone: Lymphocytes (Bld) [#/Vol] 0.9 10*3/uL Low 1.0 - 4.3 10*3/uL [employer] Work Phone: [phone] Lymphocytes/100 WBC (Bld) 11.6 % Low 20.0 - 40.0 % [employer] Phone: [phone] MCH (RBC) [Entitic mass] 33.7 pg 26.0 - 34.0 pg [employer] Phone: MCHC (RBC) [Mass/Vol] 33.8 % 32.0 - 36.0 % [employer] Phone: MCV (RBC) [Entitic vol] 99.7 fL High 79.0 - 98.0 fL [employer] Phone: Monocytes (Bld) [#/Vol] 0.7 10*3/uL 0.0 - 0.8 10*3/uL [employer] Phone: 22 Monocytes/100 WBC (Bld) 8.6 % 2.0 - 10.0 % [employer] Phone: [phone] Platelet mean volume (Bld) [Entitic vol] 8.6 fL 7.4 - 10.4 fL [facility] Work Phone: [phone] Platelets (Bld) [#/Vol] 219 10*3/uL 140 - 440 10*3/uL [facility] Work Phone: [phone] RBC (Bld) [#/Vol] 4.11 10*6/uL 3.80 - 5.2 0 10*6/uL [employer] Work Phone: [phone] WBC (Bld) [#/Vol] 7.6 10*3/uL 3.6 - 10.7 10*3/uL [employer] Work Phone: [phone] Test Performed by [facility], [address] [place] [address] [facility] Work Phone: [phone] COVID-19on 12-12-2020 Interpretation and review of laboratory results Abnormal [facility] Work Phone: [phone] SARS-CoV-2 DETECTED Abnormal Not Detected [facility] Work Phone: [phone] Comment on above: DETECTED Expected Result: Not Detected _ Real-time, RT-PCR performed on the [employer] System by the [facility] Microbiology Service. Negative results do not preclude SARS-CoV-2 infection and should not be used as the sole basis for treatment or other patient management decisions. This assay was developed by [employer] and distributed under an Emergency Use Authorization (EUA) granted by the FDA for the qualitative detection of SARS-CoV-2 nucleic acid. Test Performed by [facility], [address] [place] [id number] CR Chest Portableon 12-13-19 21 CR Chest Portable Patient Name: JAZMIN JOHNSON Diagnostic Radiology ACCESSION EXAM DATE/TIME PROCEDURE ORDERING PROVIDER [id number] 12/12/2020 16:25 EST CR Chest Portable [id number] JACK GRIFFITHS CPT code 89586 Reason For Exam (CR Chest Portable) AMS Report CHEST - PORTABLE: CLINICAL INDICATION: Altered mental status. TECHNIQUE: Portable AP COMPARISON: 11/13/2020 FINDINGS/IMPRESSION: Patient is slightly rotated. Lines, tubes, and devices: None Cardiomediastinal silhouette: Heart size is within normal limits. Lungs/Pleura: There may be some poorly defined hazy opacities at the right lung base which could reflect atelectasis/scarring with small focus of infection difficult to exclude. No pleural effusions or pneumothorax. Osseous structures/soft tissues: Degenerative spondylosis and scoliotic curvature in the visualized spine. No soft tissue abnormality is detected. Report Dictated on Final Dictated: 12/12/2020 4:04 pm Dictating Physician: MD LOPEZ VLADIMIR Signed Date and Time: 12/12/2020 4:06 pm Signed by: MD LOPEZ VLADIMIR Transcribed Date and Time: 12/12/2020 4:04 Normal [facility] CT Head WO Contraston 2020 [place], [facility] Incoming Radiology Results From [facility] - 12/12/2020 3:19 PM EST Patient Name: JAZMIN JOHNSON Computed Tomography ACCESSION EXAM DATE/TIME PROCEDURE ORDERING PROVIDER [id number] 12/12/2020 14:[address] Head or Brain w/o [id number] -VENCZEL, JACK Contrast CPT code 55483 Reason For Exam (CT Head or Brain w/o Contrast) AMS Report CT HEAD: CLINICAL INDICATION: Altered mental status TECHNIQUE: Transaxial CT sequence performed through the head with 3 mm reconstruction. Sagittal and Coronal reconstruction images included. COMPARISON: Multiple prior exams, most recently dated 11/09/2020 FINDINGS: There is similar appearance of bifrontal extra-axial collections measuring up to 6 mm in thickness, which may represent chronic subdural hematomas versus subdural hygromas. There is a 5 mm hyperattenuating lesion in the right temporal lobe (series 3, image 17) with surrounding vasogenic edema. Additional similar lesion noted in the right inferior frontal lobe measuring up to 4 mm (series 6, image 17). Ventricles and sulci are prominent, consistent with age-related cerebral volume loss. There are scattered foci of hypoattenuation within the periventricular and subcortical white matter, which is nonspecific, but commonly seen with changes of chronic small vessel ischemia. There are bilateral basal ganglial calcifications. No significant mass effect or midline shift. No CT evidence of an acute large territorial infarction. Imaged paranasal sinuses and mastoid air cells are well aerated. Calvarium is unremarkable. IMPRESSION: 1. Small relatively hyperdense lesions in the right temporal and inferior bifrontal lobes with surrounding vasogenic edema. Differential includes small hemorrhagic contusions however, tiny neoplastic lesions with edema could have a similar appearance. Contrast enhanced MRI could be performed for further evaluation. 2. Bifrontal extra-axial collections present chronic subdural hematomas, slightly decreased from the prior exam. CTR communication: Results of examination were discussed with Dr. Machuca on 12/12/2020 at 3:10 PM Computed Tomography Report Report Dictated on --- Final --- Dictated: 12/12/2020 2:57 pm Dictating Physician: MD BRITO KEVIN Signed Date and Time: 12/12/2020 3:18 pm Signed by: MD BRITO KEVIN Transcribed Date and Time: 12/12/2020 2:57 [facility] Work Phone: [id number] Computed Tomography ACCESSION EXAM DATE/TIME PROCEDURE ORDERING PROVIDER [id number] 12/12/2020 14:[address] Head or Brain w/o [id number] -JACK MACHUCA Contrast CPT code 48448 Reason For Exam (CT Head or Brain w/o Contrast) AMS Report CT HEAD: CLINICAL INDICATION: Altered mental status TECHNIQUE: Transaxial CT sequence performed through the head with 3 mm reconstruction. Sagittal and Coronal reconstruction images included. COMPARISON: Multiple prior exams, most recently dated 11/09/2020 FINDINGS: There is similar appearance of bifrontal extra-axial collections measuring up to 6 mm in thickness, which may represent chronic subdural hematomas versus subdural hygromas. There is a 5 mm hyperattenuating lesion in the right temporal lobe (series 3, image 17) with surrounding vasogenic edema. Additional similar lesion noted in the right inferior frontal lobe measuring up to 4 mm (series 6, image 17). Ventricles and sulci are prominent, consistent with age-related cerebral volume loss. There are scattered foci of hypoattenuation within the periventricular and subcortical white matter, which is nonspecific, but commonly seen with changes of chronic small vessel ischemia. There are bilateral basal ganglial calcifications. No significant mass effect or midline shift. No CT evidence of an acute large territorial infarction. Imaged paranasal sinuses and mastoid air cells are well aerated. Calvarium is unremarkable. IMPRESSION: 1. Small relatively hyperdense lesions in the right temporal and inferior bifrontal lobes with surrounding vasogenic edema. Differential includes small hemorrhagic contusions however, tiny neoplastic lesions with edema could have a similar appearance. Contrast enhanced MRI could be performed for further evaluation. 2. Bifrontal extra-axial collections present chronic subdural hematomas, slightly decreased from the prior exam. CTR communication: Results of examination were discussed with Dr. Machuca on 12/12/2020 at 3:10 PM Computed Tomography Report Report Dictated on --- Final --- Dictated: 12/12/2020 2:57 pm Dictating Physician: MD BRITO KEVIN Signed Date and Time: 12/12/2020 3:18 pm Signed by: MD BRITO KEVIN Transcribed Date and Time: 12/12/2020 2:57 [facility] Work Phone: CT Head or Brain w/o Contras ton 12-12-2020 CT Head or Brain w/o Contrast Patient Name: JAZMIN JOHNSON Computed Tomography ACCESSION EXAM DATE/TIME PROCEDURE ORDERING PROVIDER [id number] 12/12/2020 14:[address] Head or Brain w/o [id number] -JACK MACHUCA Contrast CPT code 61448 Reason For Exam (CT Head or Brain w/o Contrast) AMS Report CT HEAD: CLINICAL INDICATION: Altered mental status TECHNIQUE: Transaxial CT sequence performed through the head with 3 mm reconstruction. Sagittal and Coronal reconstruction images included. COMPARISON: Multiple prior exams, most recently dated 11/09/2020 FINDINGS: There is similar appearance of bifrontal extra-axial collections measuring up to 6 mm in thickness, which may represent chronic subdural hematomas versus subdural hygromas. There is a 5 mm hyperattenuating lesion in the right temporal lobe (series 3, image 17) with surrounding vasogenic edema. Additional similar lesion noted in the right inferior frontal lobe measuring up to 4 mm (series 6, image 17). Ventricles and sulci are prominent, consistent with age-related cerebral volume loss. There are scattered foci of hypoattenuation within the periventricular and subcortical white matter, which is nonspecific, but commonly seen with changes of chronic small vessel ischemia. There are bilateral basal ganglial calcifications. No significant mass effect or midline shift. No CT evidence of an acute large territorial infarction. Imaged paranasal sinuses and mastoid air cells are well aerated. Calvarium is unremarkable. IMPRESSION: 1. Small relatively hyperdense lesions in the right temporal and inferior bifrontal lobes with surrounding vasogenic edema. Differential includes small hemorrhagic contusions however, tiny neoplastic lesions with edema could have a similar appearance. Contrast enhanced MRI could be performed for further evaluation. 2. Bifrontal extra-axial collections present chronic subdural hematomas, slightly decreased from the prior exam. CTR communication: Results of examination were discussed with Dr. Machuca on 12/12/2020 at 3:10 PM Computed Tomography Report Report Dictated on Final Dictated: 12/12/2020 2:57 pm Dictating Physician: MD BRITO KEVIN Signed Date and Time: 12/12/2020 3:18 pm Signed by: MD BRITO KEVIN Transcribed Date and Time: 12/12/2020 2:57 Normal [facility] Comp Metabolic Panelon 12-12 Calcium [Mass/Vol] 9.9 mg/dL Normal 8.4-10.4 [facility] Comment on above: Performed By: #### B MP3 #### [facility] [address] [place], [place] ALP [Catalytic activity/Vol] 112 U/L Normal 38-126 [facility] Comment on above: Performed By: #### B MP3 #### [facility] [address], [place] ALT [Catalytic activity/Vol] 47 U/L High 0-34 [facility] Comment on above: Result Comment: The ALT test is performed by an updated assay method. Please note that the reference intervals have been changed and are now sex specific. Performed By: #### B MP3 #### [facility] [address] [place], [place] Anion gap [Moles/Vol] 15 mmol/L High 3-13 [facility] Comment on above: Performed By: #### B MP3 #### [facility] [address] [place], [place] AST [Catalytic activity/Vol] 107 U/L High 15-46 [facility] Comment on above: Performed By: #### B MP3 #### [facility] [address] [place], [place] Bilirubin [Mass/Vol] 0.8 mg/dL Normal 0.2-1.3 [facility] Comment on above: Performed By: #### B MP3 #### [facility] [address] [place], [place] CO2 [Moles/Vol] 24 mmol/L Normal 22-30 [facility] Comment on above: Performed By: #### B MP3 #### [facility] [address] [place], [place] Creatinine [Mass/Vol] 0.46 mg/dL Low 0.52-1.25 [facility] Comment on above: Performed By: #### B MP3 #### [facility] [address], [place] eGFR OTHER > 90.0 Normal >60 [facility] Comment on above: Result Comment: KDIG O guidelines provide the following GFR categories: Stage GFR(ml/min/1.73 m2) Terms G1 >=90 Normal or high G2 60-89 Mildly decreased* G3a 45-59 Mildly to moderately decreased G3b 30-44 Moderately to severely decreased G4 15-29 Severely decreased G5 <15 Kidney failure *Relative to young adult level. In the absence of evidence of kidney damage, neither GFR category G1 nor G2 fulfill the criteria for CKD. The CKD-EPI equation is validated in individuals 18 years of age and older. Currently the best equation for estimating glomerular filtration rate (GFR) from serum creatinine in children is the Bedside Robison equation. It is less accurate in patients with extremes of muscle mass, restriction of dietary protein, ingestion of creatine, extra-renal metabolism of creatinine, or treatment with medications that affect renal tubular creatinine secretion. Performed By: #### B MP3 #### [facility] [address], [place] GFR/1.73 sq M.predicted among blacks MDRD (S/P/Bld) [Vol rate/Area] mL/min/{1.73_m2} Normal >60 [facility] Comment on above: Performed By: #### B MP3 #### [facility] [address] [place], [place] Glucose [Mass/Vol] 107 mg/dL High 70-100 [facility] Comment on above: Performed By: #### B MP3 #### [facility] [address] [place], [place] Protein [Mass/Vol] 7.6 g/dL Normal 6.3-8.2 [facility] Comment on above: Performed By: #### B MP3 #### [place] [address] [place], [place] Urea nitrogen [Mass/Vol] 14 mg/dL Normal 7-20 [facility] Comment on above: Performed By: #### B MP3 #### [place] [address] [place], [place] Potassium [Moles/Vol] 3.4 mmol/L Low 3.5-5.1 [facility] Comment on above: Performed By: #### B MP3 #### [place] [address] [place], [place] Albumin [Mass/Vol] 4.4 g/dL Normal 3.5-5.0 [facility] Comment on above: Performed By: #### B MP3 #### [place] [address] [place], [place] Chloride [Moles/Vol] 92 mmol/L Low 98-107 [facility] Comment on above: Performed By: #### B MP3 #### [place] [address] [place], [place] Sodium [Moles/Vol] 130 mmol/L Low 135-145 [facility] Comment on above: Performed By: #### B MP3 #### [place] [address] [place], [place] Complete Urinalysison 2020 Appearance (U) Clear Normal Clear [facility] Comment on above: Result Comment: . Performed By: #### E TOH4 #### [facility] [address] [place], [place] Bacteria LM.HPF (Urine sed) [#/Area] Negative Normal Negative [facility] Comment on above: Result Comment: . Performed By: #### E TOH4 #### [facility] [address] [place], [place] Bilirubin,Urine Negative Normal Negative [facility] Comment on above: Result Comment: . Performed By: #### E TOH4 #### [facility] [address] [place], [place] Cast, Hyaline Negative Normal Negative [facility] Comment on above: Result Comment: . Performed By: #### E TOH4 #### [place] [address] [place], [place] Color (U) Yellow Normal Lt. Yellow [facility] Comment on above: Result Comment: . Performed By: #### E TOH4 #### [facility] [address] [place], [place] Glucose Ql (U) Normal Normal Normal (<70) [facility] Comment on above: Result Comment: . Performed By: #### E TOH4 #### [place] [address] [place], [place] Ketone,Urine 10 mg/dL Abnormal Negative [facility] Comment on above: Result Comment: . Performed By: #### E TOH4 #### [facility] [address] [place] Leukocytes,Urine Negative Normal Negative [facility] Comment on above: Result Comment: . Performed By: #### E TOH4 #### [facility] [address] [place] Mucous Threads Few Normal Negative [facility] Comment on above: Result Comment: . Performed By: #### E TOH4 #### [facility] [address] [place] Nitrites,Urine Negative Normal Negative [facility] Comment on above: Result Comment: . Performed By: #### E TOH4 #### [facility] [address] [place], [place] Occult Blood,Urine Negative Normal Negative [facility] Comment on above: Result Comment: . Performed By: #### E TOH4 #### [place] [address] [place], [place] pH,Urine 7.5 Normal 5.0-8.0 [facility] Comment on above: Result Comment: . Performed By: #### E TOH4 #### [place] [address] [place], [place] Protein (U) [Mass/Vol] 10 mg/dL Abnormal Negative [facility] Comment on above: Result Comment: . Performed By: #### E TOH4 #### [place] [address] [place], [place] RBC, Urine 0 - 2 Normal 0-2 [facility] Comment on above: Result Comment: . Performed By: #### E TOH4 #### [place] [address] [place], [place] Specific [place],Urine 1.011 Normal 1.005 - 1.030 [facility] Comment on above: Result Comment: . Performed By: #### E TOH4 #### [place] [address] [place], [place] Squamous Epithelial Negative Normal 3-5 [facility] Comment on above: Result Comment: . Performed By: #### E TOH4 #### [place] [address] [place], [place] Urobilinogen,Urine 2 mg/dL Abnormal Normal (0-1) [facility] Comment on above: Result Comment: . Performed By: #### E TOH4 #### [place] [address] [place], [place] WBC, Urine 0 - 2 Normal 0-5 [facility] Comment on above: Result Comment: . Performed By: #### E TOH4 #### [place] [address] [place], [place] Comprehensive Metabolic Pane lexa 12-12-2020 Albumin [Mass/Vol] 4.4 g/dL 3.5 - 5.0 g/dL [facility] Work Phone: [phone] ALP [Catalytic activity/Vol] 112 U/L 38 - 126 U/L [facility] Work Phone: [phone] ALT [Catalytic activity/Vol] 47 U/L High 0 - 34 U/L [facility] Work Phone: [phone] Comment on above: The ALT test is perf ormed by an updated assay method. Please note that the reference intervals have been changed and are now sex specific. Anion gap [Moles/Vol] 15 mmol/L High 3 - 13 mmol/L [facility] Work Phone: [phone] AST [Catalytic activity/Vol] 107 U/L High 15 - 46 U/L [facility] Work Phone: [phone] Bilirubin Ql (U) 0.8 mg/dL 0.2 - 1.3 mg/dL [facility] Work Phone: [phone] Calcium [Mass/Vol] 9.9 mg/dL 8.4 - 10. 4 mg/dL [facility] Work Phone: [phone] Chloride [Moles/Vol] 92 mmol/L Low 98 - 107 mmol/L [facility] Work Phone: [phone] CO2 [Moles/Vol] 24 mmol/L 22 - 30 mmol/L [facility] Work Phone: [phone] Creatinine [Mass/Vol] 0.46 mg/dL Low 0.52 - 1.25 mg/dL [facility] Work Phone: [phone] EGFR IF NonAfrican Eritrean >90.0 >60 mL/min [facility] Work Phone: Comment on above: KDIGO guidelines pro vide the following GFR categories: Stage GFR(ml/min/1.73 m2) Terms G1 >=90 Normal or high G2 60-89 Mildly decreased* G3a 45-59 Mildly to moderately decreased G3b 30-44 Moderately to severely decreased G4 15-29 Severely decreased G5 <15 Kidney failure *Relative to young adult level. In the absence of evidence of kidney damage, neither GFR category G1 nor G2 fulfill the criteria for CKD. The CKD-EPI equation is validated in individuals 18 years of age and older. Currently the best equation for estimating glomerular filtration rate (GFR) from serum creatinine in children is the Bedside Robison equation. It is less accurate in patients with extremes of muscle mass, restriction of dietary protein, ingestion of creatine, extra-renal metabolism of creatinine, or treatment with medications that affect renal tubular creatinine secretion. GFR/1.73 sq M predicted among blacks MDRD (S/P/Bld) [Vol rate/Area] mL/min/{1.73_m2} >60 mL/min [facility] Work Phone: Glucose [Mass/Vol] 107 mg/dL High 70 - 100 mg/dL [facility] Work Phone: Potassium [Moles/Vol] 3.4 mmol/L Low 3.5 - 5.1 mmol/L [facility] Work Phone: Protein [Mass/Vol] 7.6 g/dL 6.3 - 8.2 g/dL [facility] Work Phone: Sodium [Moles/Vol] 130 mmol/L Low 135 - 145 mmol/L [facility] Work Phone: Urea nitrogen [Mass/Vol] 14 mg/dL 7 - 20 mg/dL [facility] Work Phone: Drugs of Abuseon 12-12-2020 Phencyclidine (PCP), Ur Negative Normal [facility] Comment on above: Result Comment: The expected value for all of the drugs listed above is Negative. The following drugs or drug groups have been screened for by Immunoassay at the following thresholds: Amphetamine class (1000 ng/mL), Barbiturates (200 ng/mL), Benzodiazepines (200 ng/mL), Cocaine (300 ng/mL), Methadone (300 ng/mL), Opiates (300 ng/mL), Oxycodone (100 ng/mL), and PCP (25 ng/mL). NOTE: These results are for medical treatment only. Analysis performed using non-forensic procedures. POSITIVE results are NOT confirmed by a more specific alternative method unless requested. If confirmation is needed, request confirmation under separate order. Performed By: #### B MP3 #### [facility] [address] [place] [address] Methadone, Ur Negative Normal [facility] Comment on above: Performed By: #### B MP3 #### [facility] [address] [place] [address] Opiates, Ur Negative Normal [facility] Comment on above: Performed By: #### B MP3 #### [facility] [address] [place] [address] Cocaine, Ur Negative Normal [facility] Comment on above: Performed By: #### B MP3 #### [facility] [address] [place] [address] Barbiturates, Ur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 [address] [place] Glucose [Mass/Vol] 90 mg/dL Normal 70-100 [facility] Comment on above: Performed By: #### M G3, PHOS3, HEMDF, BMP3M #### [place] [address] [place] Protein [Mass/Vol] 6.4 g/dL Normal 6.3-8.2 [facility] Comment on above: Performed By: #### M G3, PHOS3, HEMDF, BMP3M #### [place] [address] [place], [place] Urea nitrogen [Mass/Vol] 10 mg/dL Normal 7-20 [facility] Comment on above: Performed By: #### M G3, PHOS3, HEMDF, BMP3M #### [place] [address] [place] Bilirubin [Mass/Vol] 0.4 mg/dL Normal 0.2-1.3 [facility] Comment on above: Performed By: #### M G3, PHOS3, HEMDF, BMP3M #### [place] [address] [place] Creatinine [Mass/Vol] 0.46 mg/dL Low 0.52-1.25 [facility] Comment on above: Performed By: #### M G3, PHOS3, HEMDF, BMP3M #### [place] [address] [place] eGFR OTHER > 90.0 Normal >60 [facility] Comment on above: Result Comment: KDIG O guidelines provide the following GFR categories: Stage GFR(ml/min/1.73 m2) Terms G1 >=90 Normal or high G2 60-89 Mildly decreased* G3a 45-59 Mildly to moderately decreased G3b 30-44 Moderately to severely decreased G4 15-29 Severely decreased G5 <15 Kidney failure *Relative to young adult level. In the absence of evidence of kidney damage, neither GFR category G1 nor G2 fulfill the criteria for CKD. The CKD-EPI equation is validated in individuals 18 years of age and older. Currently the best equation for estimating glomerular filtration rate (GFR) from serum creatinine in children is the Bedside Robison equation. It is less accurate in patients with extremes of muscle mass, restriction of dietary protein, ingestion of creatine, extra-renal metabolism of creatinine, or treatment with medications that affect renal tubular creatinine secretion. Performed By: #### M G3, PHOS3, HEMDF, BMP3M #### [place] [address] [place], [place] GFR/1.73 sq M.predicted among blacks MDRD (S/P/Bld) [Vol rate/Area] mL/min/{1.73_m2} Normal >60 [facility] Comment on above: Performed By: #### M G3, PHOS3, HEMDF, BMP3M #### [facility] [address] [place], [place] Potassium [Moles/Vol] 3.7 mmol/L Normal 3.5-5.1 [facility] Comment on above: Performed By: #### M G3, PHOS3, HEMDF, BMP3M #### [facility] [address] [place], [place] Sodium [Moles/Vol] 137 mmol/L Normal 135-145 [facility] Comment on above: Performed By: #### M G3, PHOS3, HEMDF, BMP3M #### [facility] [address] [place], [place] Albumin [Mass/Vol] 3.6 g/dL Normal 3.5-5.0 [facility] Comment on above: Performed By: #### M G3, PHOS3, HEMDF, BMP3M #### [facility] [address] [place], [place] Chloride [Moles/Vol] 108 mmol/L High 98-107 [facility] Comment on above: Performed By: #### M G3, PHOS3, HEMDF, BMP3M #### [place] [address] [place], [place] D-Dimer, Innovanceon 021 D-Dimer, Innovance 3.24 mg/L High 0.00-0.50 [facility] Comment on above: Result Comment: Inno walton D-Dimer values of <0.50 mg/L FEU can be used in combination with a pre-test probability model (e.g. Well's) to exclude pulmonary embolism (PE) disease, as well as an aid in the diagnosis of deep vein thrombosis (DVT). Performed By: #### M G3, PHOS3, HEMDF, BMP3M #### [place] [address] [place], [place] Hemogram w/ Autodiffon 11-15 Abs Baso Cnt 0.1 10*3/uL Normal 0.0-0.2 [facility] Comment on above: Performed By: #### M G3, PHOS3, HEMDF, BMP3M #### [place] [address] [place] Abs Neutrophile Cnt 3.1 10*3/uL Normal 1.8-7.0 [facility] Comment on above: Performed By: #### M G3, PHOS3, HEMDF, BMP3M #### [place] [address] [place] Basophils/100 WBC (Bld) 1.1 % Normal 0.0-2.0 [facility] Comment on above: Performed By: #### M G3, PHOS3, HEMDF, BMP3M #### [place] [address] [place] Eosinophils (Bld) [#/Vol] 0.1 10*3/uL Normal 0.0-0.5 [facility] Comment on above: Performed By: #### M G3, PHOS3, HEMDF, BMP3M #### [place] [address] [place] Eosinophils/100 WBC (Bld) 2.3 % Normal 1.0-6.0 [facility] Comment on above: Performed By: #### M G3, PHOS3, HEMDF, BMP3M #### [place] [address] [place] Erythrocyte distribution width (RBC) [Ratio] 14.4 % Normal 11.5-14.5 [facility] Comment on above: Performed By: #### M G3, PHOS3, HEMDF, BMP3M #### [place] [address] [place] Granulocytes/100 WBC (Bld) 50.5 % Normal 40.0-80.0 [facility] Comment on above: Performed By: #### M G3, PHOS3, HEMDF, BMP3M #### [place] [address] [place] Hematocrit (Bld) [Volume fraction] 38.3 % Normal 35.0-47.0 [facility] Comment on above: Performed By: #### M G3, PHOS3, HEMDF, BMP3M #### [place] [address] [place] Hemoglobin (Bld) [Mass/Vol] 12.7 g/dL Normal 11.7-16.0 [facility] Comment on above: Performed By: #### M G3, PHOS3, HEMDF, BMP3M #### [place] [address] [place] Lymphocytes (Bld) [#/Vol] 2.0 10*3/uL Normal 1.0-4.3 [facility] Comment on above: Performed By: #### M G3, PHOS3, HEMDF, BMP3M #### [place] [address] [place] Lymphocytes/100 WBC (Bld) 32.3 % Normal 20.0-40.0 [facility] Comment on above: Performed By: #### M G3, PHOS3, HEMDF, BMP3M #### [place] [address] [place] MCH (RBC) [Entitic mass] 33.5 pg Normal 26.0-34.0 [facility] Comment on above: Performed By: #### M G3, PHOS3, HEMDF, BMP3M #### [place] [address] [place] MCHC 33.1 % Normal 32.0-36.0 [facility] Comment on above: Performed By: #### M G3, PHOS3, HEMDF, BMP3M #### [place] [address] [place], [place] MCV (RBC) [Entitic vol] 101.1 fL High 79.0-98.0 [facility] Comment on above: Performed By: #### M G3, PHOS3, HEMDF, BMP3M #### [place] [address] [place], [place] Monocytes (Bld) [#/Vol] 0.8 10*3/uL Normal 0.0-0.8 [facility] Comment on above: Performed By: #### M G3, PHOS3, HEMDF, BMP3M #### [place] [address] [place], [place] Monocytes/100 WBC (Bld) 13.8 % High 2.0-10.0 [facility] Comment on above: Performed By: #### M G3, PHOS3, HEMDF, BMP3M #### [place] [address] [place] Platelet mean volume (Bld) [Entitic vol] 9.2 fL Normal 7.4-10.4 [facility] Comment on above: Performed By: #### M G3, PHOS3, HEMDF, BMP3M #### [address] Platelets (Bld) [#/Vol] 161 10*3/uL Normal 140-440 [facility] Comment on above: Performed By: #### M G3, PHOS3, HEMDF, BMP3M #### [facility] [address] [place], [place] RBC (Bld) [#/Vol] 3.79 10*6/uL Low 3.80-5.20 [facility] Comment on above: Performed By: #### M G3, PHOS3, HEMDF, BMP3M #### [facility] [address] [place] WBC (Bld) [#/Vol] 6.1 10*3/uL Normal 3.6-10.7 [facility] Comment on above: Performed By: #### M G3, PHOS3, HEMDF, BMP3M #### [place] [address] [place] APTTon 11-14-2020 aPTT Coag (Bld) [Time] 25.3 s Normal 20.0-30.5 [facility] Comment on above: Result Comment: NOTE : The therapeutic time for Heparin anticoagulation, based on Xa activity inhibition, is an APTT of 46-80 seconds. Performed By: #### M G3, PHOS3, HEMDF, BMP3M #### [place] [address] [place], [place] C-Reactive Proteinon 021 CRP [Mass/Vol] 10.9 mg/L High 0.0-6.0 [facility] Comment on above: Result Comment: . Performed By: #### M G3, PHOS3, HEMDF, BMP3M #### [place] [address] [place], [place] Comp Metabolic Panelon 11-14 ALP [Catalytic activity/Vol] 79 U/L Normal 38-126 [facility] Comment on above: Performed By: #### M G3, PHOS3, HEMDF, BMP3M #### [facility] [address] [place], [place] ALT [Catalytic activity/Vol] 11 U/L Normal 0-34 [facility] Comment on above: Result Comment: The ALT test is performed by an updated assay method. Please note that the reference intervals have been changed and are now sex specific. Performed By: #### M G3, PHOS3, HEMDF, BMP3M #### [facility] [address] [place], [place] Anion Gap 9 Normal [facility] Comment on above: Performed By: #### M G3, PHOS3, HEMDF, BMP3M #### [facility] [address] [place], [place] AST [Catalytic activity/Vol] 25 U/L Normal 15-46 [facility] Comment on above: Performed By: #### M G3, PHOS3, HEMDF, BMP3M #### [facility] [address] [place] Bilirubin [Mass/Vol] 0.4 mg/dL Normal 0.2-1.3 [facility] Comment on above: Performed By: #### M G3, PHOS3, HEMDF, BMP3M #### [place] [address] [place] Calcium [Mass/Vol] 9.0 mg/dL Normal 8.4-10.4 [facility] Comment on above: Performed By: #### M G3, PHOS3, HEMDF, BMP3M #### [place] [address] [place] CO2 [Moles/Vol] 20 mmol/L Low 22-30 [facility] Comment on above: Performed By: #### M G3, PHOS3, HEMDF, BMP3M #### [facility] [address] [place], [place] Glucose [Mass/Vol] 94 mg/dL Normal 70-100 [facility] Comment on above: Performed By: #### M G3, PHOS3, HEMDF, BMP3M #### [facility] [address] [place] Protein [Mass/Vol] 6.2 g/dL Low 6.3-8.2 [facility] Comment on above: Performed By: #### M G3, PHOS3, HEMDF, BMP3M #### [place] [address] [place] Urea nitrogen [Mass/Vol] 16 mg/dL Normal 7-20 [facility] Comment on above: Performed By: #### M G3, PHOS3, HEMDF, BMP3M #### [place] [address] [place] Creatinine [Mass/Vol] 0.51 mg/dL Low 0.52-1.25 [facility] Comment on above: Performed By: #### M G3, PHOS3, HEMDF, BMP3M #### [place] [address] [place], [place] eGFR OTHER > 90.0 Normal >60 [facility] Comment on above: Result Comment: KDIG O guidelines provide the following GFR categories: Stage GFR(ml/min/1.73 m2) Terms G1 >=90 Normal or high G2 60-89 Mildly decreased* G3a 45-59 Mildly to moderately decreased G3b 30-44 Moderately to severely decreased G4 15-29 Severely decreased G5 <15 Kidney failure *Relative to young adult level. In the absence of evidence of kidney damage, neither GFR category G1 nor G2 fulfill the criteria for CKD. The CKD-EPI equation is validated in individuals 18 years of age and older. Currently the best equation for estimating glomerular filtration rate (GFR) from serum creatinine in children is the Bedside Robison equation. It is less accurate in patients with extremes of muscle mass, restriction of dietary protein, ingestion of creatine, extra-renal metabolism of creatinine, or treatment with medications that affect renal tubular creatinine secretion. Performed By: #### M G3, PHOS3, HEMDF, BMP3M #### [facility] [address] [place], [place] GFR/1.73 sq M.predicted among blacks MDRD (S/P/Bld) [Vol rate/Area] mL/min/{1.73_m2} Normal >60 [facility] Comment on above: Performed By: #### M G3, PHOS3, HEMDF, BMP3M #### [place] [address] [place] Potassium [Moles/Vol] 3.9 mmol/L Normal 3.5-5.1 [facility] Comment on above: Performed By: #### M G3, PHOS3, HEMDF, BMP3M #### [place] [address] [place] [address] Albumin [Mass/Vol] 3.4 g/dL Low 3.5-5.0 [facility] Comment on above: Performed By: #### M G3, PHOS3, HEMDF, BMP3M #### [facility] [address] [place] [address] Chloride [Moles/Vol] 109 mmol/L High 98-107 [facility] Comment on above: Performed By: #### M G3, PHOS3, HEMDF, BMP3M #### [place] [address] [place] [address] Sodium [Moles/Vol] 137 mmol/L Normal 135-145 [facility] Comment on above: Performed By: #### M G3, PHOS3, HEMDF, BMP3M #### [place] [address] [place] D-Dimer, Innovanceon 021 D-Dimer, Innovance 3.00 mg/L High 0.00-0.50 [facility] Comment on above: Result Comment: Inno [place] D-Dimer values of <0.50 mg/L FEU can be used in combination with a pre-test probability model (e.g. Well's) to exclude pulmonary embolism (PE) disease, as well as an aid in the diagnosis of deep vein thrombosis (DVT). Performed By: #### M G3, PHOS3, HEMDF, BMP3M #### [address] [place] [address] Ferritinon 11-14-2020 Ferritin [Mass/Vol] 165 ng/mL Normal 8-252 [facility] Comment on above: Performed By: #### M G3, PHOS3, HEMDF, BMP3M #### [address] [place] [address] Fibrinogenon 11-14-2020 Fibrinogen 414 mg/dL High 200-400 [facility] Comment on above: Performed By: #### M G3, PHOS3, HEMDF, BMP3M #### [address] [place] Folateon 11-14-2020 Folate 16.6 ng/mL Normal 2.8-20.0 [facility] Comment on above: Performed By: #### M G3, PHOS3, HEMDF, BMP3M #### [address] Hemogram w/ Autodiffon 11-14 Abs Baso Cnt 0.0 10*3/uL Normal 0.0-0.2 [facility] Comment on above: Performed By: #### A PTT, FIBGN, LDH3, DDI2, B12, CMP3, FERR3, HEMDF, CRP2, PT, FOLT3 #### [address] #### VD25H #### [facility] [address] [place] [address] Abs Neutrophile Cnt 3.4 10*3/uL Normal 1.8-7.0 [facility] Comment on above: Performed By: #### A PTT, FIBGN, LDH3, DDI2, B12, CMP3, FERR3, HEMDF, CRP2, PT, FOLT3 #### [address] #### VD25H #### [facility] [address] [place] [address] Basophils/100 WBC (Bld) 0.6 % Normal 0.0-2.0 [facility] Comment on above: Performed By: #### A PTT, FIBGN, LDH3, DDI2, B12, CMP3, FERR3, HEMDF, CRP2, PT, FOLT3 #### [address] #### VD25H #### [facility] [address] [place] [address] Eosinophils (Bld) [#/Vol] 0.1 10*3/uL Normal 0.0-0.5 [facility] Comment on above: Performed By: #### A PTT, FIBGN, LDH3, DDI2, B12, CMP3, FERR3, HEMDF, CRP2, PT, FOLT3 #### [address] #### VD25H #### [facility] [address] [place] [address] Eosinophils/100 WBC (Bld) 1.3 % Normal 1.0-6.0 [facility] Comment on above: Performed By: #### A PTT, FIBGN, LDH3, DDI2, B12, CMP3, FERR3, HEMDF, CRP2, PT, FOLT3 #### [address] #### VD25H #### [facility] [address] [place] [address] Erythrocyte distribution width (RBC) [Ratio] 14.3 % Normal 11.5-14.5 [facility] Comment on above: Performed By: #### A PTT, FIBGN, LDH3, DDI2, B12, CMP3, FERR3, HEMDF, CRP2, PT, FOLT3 #### [address] #### VD25H #### [facility] [address] [place] [address] Granulocytes/100 WBC (Bld) 61.9 % Normal 40.0-80.0 [facility] Comment on above: Performed By: #### A PTT, FIBGN, LDH3, DDI2, B12, CMP3, FERR3, HEMDF, CRP2, PT, FOLT3 #### [address] #### VD25H #### [facility] [address] [place] [address] Hematocrit (Bld) [Volume fraction] 36.2 % Normal 35.0-47.0 [facility] Comment on above: Performed By: #### A PTT, FIBGN, LDH3, DDI2, B12, CMP3, FERR3, HEMDF, CRP2, PT, FOLT3 #### [address] #### VD25H #### [address] [place] [address] Hemoglobin (Bld) [Mass/Vol] 12.1 g/dL Normal 11.7-16.0 [facility] Comment on above: Performed By: #### A PTT, FIBGN, LDH3, DDI2, B12, CMP3, FERR3, HEMDF, CRP2, PT, FOLT3 #### [address] #### VD25H #### [facility] [address] [place] [address] Lymphocytes (Bld) [#/Vol] 1.3 10*3/uL Normal 1.0-4.3 [facility] Comment on above: Performed By: #### A PTT, FIBGN, LDH3, DDI2, B12, CMP3, FERR3, HEMDF, CRP2, PT, FOLT3 #### [address] #### VD25H #### [address] [place] [address] Lymphocytes/100 WBC (Bld) 24.2 % Normal 20.0-40.0 [facility] Comment on above: Performed By: #### A PTT, FIBGN, LDH3, DDI2, B12, CMP3, FERR3, HEMDF, CRP2, PT, FOLT3 #### [address] #### VD25H #### [address] [place] [address] MCH (RBC) [Entitic mass] 33.6 pg Normal 26.0-34.0 [facility] Comment on above: Performed By: #### A PTT, FIBGN, LDH3, DDI2, B12, CMP3, FERR3, HEMDF, CRP2, PT, FOLT3 #### [address] #### VD25H #### [address] [place] [address] MCHC 33.5 % Normal 32.0-36.0 [facility] Comment on above: Performed By: #### A PTT, FIBGN, LDH3, DDI2, B12, CMP3, FERR3, HEMDF, CRP2, PT, FOLT3 #### [address] #### VD25H #### [facility] [address] [place] [address] MCV (RBC) [Entitic vol] 100.2 fL High 79.0-98.0 [facility] Comment on above: Performed By: #### A PTT, FIBGN, LDH3, DDI2, B12, CMP3, FERR3, HEMDF, CRP2, PT, FOLT3 #### [address] #### VD25H #### [facility] [address] [place] [address] Monocytes (Bld) [#/Vol] 0.7 10*3/uL Normal 0.0-0.8 [facility] Comment on above: Performed By: #### A PTT, FIBGN, LDH3, DDI2, B12, CMP3, FERR3, HEMDF, CRP2, PT, FOLT3 #### [address] #### VD25H #### [facility] [address] [place] [address] Monocytes/100 WBC (Bld) 12.0 % High 2.0-10.0 [facility] Comment on above: Performed By: #### A PTT, FIBGN, LDH3, DDI2, B12, CMP3, FERR3, HEMDF, CRP2, PT, FOLT3 #### [address] #### VD25H #### [facility] [address] [place] [address] Platelet mean volume (Bld) [Entitic vol] 9.7 fL Normal 7.4-10.4 [facility] Comment on above: Performed By: #### A PTT, FIBGN, LDH3, DDI2, B12, CMP3, FERR3, HEMDF, CRP2, PT, FOLT3 #### [facility] [address] [place] #### VD25H #### [facility] [address] [place] [address] Platelets (Bld) [#/Vol] 138 10*3/uL Low 140-440 [facility] Comment on above: Performed By: #### A PTT, FIBGN, LDH3, DDI2, B12, CMP3, FERR3, HEMDF, CRP2, PT, FOLT3 #### [facility] [address] [place] #### VD25H #### [facility] [address] [place] [address] RBC (Bld) [#/Vol] 3.62 10*6/uL Low 3.80-5.20 [facility] Comment on above: Performed By: #### A PTT, FIBGN, LDH3, DDI2, B12, CMP3, FERR3, HEMDF, CRP2, PT, FOLT3 #### [address] #### VD25H #### [facility] [address] [place] [address] WBC (Bld) [#/Vol] 5.4 10*3/uL Normal 3.6-10.7 [facility] Comment on above: Performed By: #### A PTT, FIBGN, LDH3, DDI2, B12, CMP3, FERR3, HEMDF, CRP2, PT, FOLT3 #### [address] #### VD25H #### [facility] [address] [place] [address] LDHon 11-14-2020 LDH 175 U/L Normal 120-246 [facility] Comment on above: Performed By: #### M G3, PHOS3, HEMDF, BMP3M #### [address] Procalcitoninon 11-14-2020 Procalcitonin < 0.10 Normal <0.10 [facility] Comment on above: Performed By: #### E TOH4 #### [facility] [address] [place] [address] Prothrombin Timeon INR 1.0 Normal 0.9-1.1 [facility] Comment on above: Result Comment: Daniel mmended Anticoagulant Therapy: SEE BELOW ----- INR of 2.0 - 3.0 : - Prophylaxis of Venous Thrombosis (high-risk surgery) - Treatment of Venous Thrombosis - Treatment of Pulmonary Embolism (Includes tissue heart valves, Acute Myocardial Infarction to prevent systemic embolism, Valvular Heart Disease, and Atrial Fibrillation) ----- INR of 2.5 - 3.5 : - Mechanical Prosthetic Valves (high risk) - If oral anticoagulant therapy is used to prevent Myocardial Infarction Performed By: #### M G3, PHOS3, HEMDF, BMP3M #### [address] [place], [place] PT Coag (PPP) [Time] 10.9 s Normal 9.0-12.0 [facility] Comment on above: Result Comment: . Performed By: #### M G3, PHOS3, HEMDF, BMP3M #### [address] [place] [address] Vit D 25-OH, Totalon 021 Vit D 25-OH, Total 25 ng/mL Low 30-100 [facility] Comment on above: Result Comment: Ther apy is based on measurement of Total 25- OHD with the following classification levels: Less than 20 ng/mL: Indicative of Vit D deficiency 20-30 ng/mL: Suggests Vit D insufficiency Optimal: Greater than or equal to 30 ng/mL Test performed by [employer], measuring Total Vitamin D, not individual fractions. Performed By: #### M G3, PHOS3, HEMDF, BMP3M #### [address] [place] [address] Vitamin B12on 11-14-2020 Cobalamin (Vitamin B12) [Mass/Vol] 986 pg/mL High 239-931 [facility] Comment on above: Performed By: #### M G3, PHOS3, HEMDF, BMP3M #### [address] [place] [address] Add on test from HISon 11-13 Add on test from HIS Accepted Normal [facility] Comment on above: Result Comment: Spec imen available & acceptable for analysis. Performed By: #### M G3, PHOS3, HEMDF, BMP3M #### [facility] [address] [place] [address] CR Chest Portableon 11-13-19 21 CR Chest Portable Patient Name: JAZMIN JOHNSON Diagnostic Radiology ACCESSION EXAM DATE/TIME PROCEDURE ORDERING PROVIDER [id number] 11/13/2020 07:39 EST CR Chest Portable MD LITTLE ALEKSANDAR CPT code 10099 Reason For Exam (CR Chest Portable) r/o PNA Report PORTABLE CHEST X-RAY CLINICAL INDICATION: Pneumonia A portable frontal view of the chest was obtained. COMPARISON: 11/08/2020 FINDINGS: The cardiac silhouette is within normal limits. There is streaky atelectasis or early infiltrate at the right lung base, increased when compared to the prior study. No focal consolidation is seen within the lungs. There is no large pleural effusion or pneumothorax. The bony structures of the chest are unremarkable as visualized. IMPRESSION: Streaky right basilar density may represent atelectasis or early infiltrate. This is new when compared to the prior study. Report Dictated on Final Dictated: 11/13/2020 7:23 am Dictating Physician: MD HWANG JONATHAN R Signed Date and Time: 11/13/2020 7:23 am Signed by: MD HWANG JONATHAN R Transcribed Date and Time: 11/13/2020 7:23 Normal [facility] LEGIONELLA AG, URINEon 11-13 LEGIONELLA AG, URINE Not detected Normal [facility] Comment on above: Performed By: #### M G3, PHOS3, HEMDF, BMP3M #### [facility] [address] [place] [address] Phenobarbitalon 11-13-2020 PHENobarbital [Mass/Vol] 17.2 ug/mL Normal 15.0-40.0 [facility] Comment on above: Performed By: #### N A3 #### [address] [place] [address] Procalcitoninon 11-13-2020 Interpretation See Below Normal [facility] Comment on above: Result Comment: PCT <0.50 = Low risk of severe sepsis and/or septic shock. PCT >2.00 = High risk of severe sepsis and/or septic shock. Performed By: #### E TOH4 #### [facility] [address] [place], [place] STREP PNEUMO ANTIGEN, URINEo n 11-13-2020 STREP PNEUMO ANTIGEN, URINE Not detected Normal [facility] Comment on above: Performed By: #### M G3, PHOS3, HEMDF, BMP3M #### [address] [place], [place] Staph Aureus Complete Nasalo n 11-13-2020 Staph Aureus Complete Nasal Staph Screen --> Status: F No S. aureus detected. Negative nasal MRSA PCR has a high negative predictive value for MRSA pneumonia. Consider stopping vancomycin if no other clinical indication. Contact Antimicrobial Stewardship for further recommendations. The analytical performance characteristics of this assay have been [facility] in accordance with CLIA regulations. The modifications have not been cleared or approved by the U. S. Food and Drug Administration; however, the FDA has determined that such clearance or approval is not necessary. Negative nasal MRSA PCR has a high negative predictive value for MRSA pneumonia. Consider stopping vancomycin if no other clinical indication. Contact Antimicrobial Stewardship for further recommendations. The analytical performance characteristics of this assay have been determined by [facility] in accordance with CLIA regulations. The modifications have not been cleared or approved by the U. S. Food and Drug Administration; however, the FDA has determined that such clearance or approval is not necessary. Normal [facility] Comment on above: Performed By: #### M G3, PHOS3, HEMDF, BMP3M #### [facility] [address] [place] [address] Basic Metabolic Panelon 10-16 Anion Gap 3 Normal [facility] Comment on above: Performed By: #### M G3, PHOS3, HEMDF, BMP3M #### [facility] [address] [place], [place] Calcium [Mass/Vol] 8.8 mg/dL Normal 8.4-10.4 [facility] Comment on above: Performed By: #### M G3, PHOS3, HEMDF, BMP3M #### [facility] [address] [place], [place] CO2 [Moles/Vol] 24 mmol/L Normal 22-30 [facility] Comment on above: Performed By: #### M G3, PHOS3, HEMDF, BMP3M #### [facility] [address] [place], [place] Glucose [Mass/Vol] 97 mg/dL Normal 70-100 [facility] Comment on above: Performed By: #### M G3, PHOS3, HEMDF, BMP3M #### [facility] [address] [place], [place] Urea nitrogen [Mass/Vol] 9 mg/dL Normal 7-20 [facility] Comment on above: Performed By: #### M G3, PHOS3, HEMDF, BMP3M #### [facility] [address] [place], [place] Creatinine [Mass/Vol] 0.39 mg/dL Low 0.52-1.25 [facility] Comment on above: Performed By: #### M G3, PHOS3, HEMDF, BMP3M #### [facility] [address] [place], [place] eGFR OTHER > 90.0 Normal >60 [facility] Comment on above: Result Comment: KDIG O guidelines provide the following GFR categories: Stage GFR(ml/min/1.73 m2) Terms G1 >=90 Normal or high G2 60-89 Mildly decreased* G3a 45-59 Mildly to moderately decreased G3b 30-44 Moderately to severely decreased G4 15-29 Severely decreased G5 <15 Kidney failure *Relative to young adult level. In the absence of evidence of kidney damage, neither GFR category G1 nor G2 fulfill the criteria for CKD. The CKD-EPI equation is validated in individuals 18 years of age and older. Currently the best equation for estimating glomerular filtration rate (GFR) from serum creatinine in children is the Bedside Robison equation. It is less accurate in patients with extremes of muscle mass, restriction of dietary protein, ingestion of creatine, extra-renal metabolism of creatinine, or treatment with medications that affect renal tubular creatinine secretion. Performed By: #### M G3, PHOS3, HEMDF, BMP3M #### [address] [address] [place], [place] GFR/1.73 sq M.predicted among blacks MDRD (S/P/Bld) [Vol rate/Area] mL/min/{1.73_m2} Normal >60 [facility] Comment on above: Performed By: #### M G3, PHOS3, HEMDF, BMP3M #### [address] Potassium [Moles/Vol] 3.6 mmol/L Normal 3.5-5.1 [facility] Comment on above: Performed By: #### M G3, PHOS3, HEMDF, BMP3M #### [address] Chloride [Moles/Vol] 105 mmol/L Normal 98-107 [facility] Comment on above: Performed By: #### M G3, PHOS3, HEMDF, BMP3M #### [address] [address] [place], [place] Sodium [Moles/Vol] 132 mmol/L Low 135-145 [facility] Comment on above: Performed By: #### M G3, PHOS3, HEMDF, BMP3M #### [address] Free T4on 11-12-2020 Free T4 [Mass/Vol] 1.05 ng/dL Normal 0.78-2.19 [facility] Comment on above: Performed By: #### B MP3 #### [address] Hemogram w/ Autodiffon 11-12 Abs Baso Cnt 0.1 10*3/uL Normal 0.0-0.2 [facility] Comment on above: Performed By: #### M G3, PHOS3, HEMDF, BMP3M #### [address] [place], [place] Abs Neutrophile Cnt 3.7 10*3/uL Normal 1.8-7.0 [facility] Comment on above: Performed By: #### M G3, PHOS3, HEMDF, BMP3M #### [address] [place] Basophils/100 WBC (Bld) 1.0 % Normal 0.0-2.0 [facility] Comment on above: Performed By: #### M G3, PHOS3, HEMDF, BMP3M #### [address] [place] Eosinophils (Bld) [#/Vol] 0.2 10*3/uL Normal 0.0-0.5 [facility] Comment on above: Performed By: #### M G3, PHOS3, HEMDF, BMP3M #### [address] [address] [place], [place] Eosinophils/100 WBC (Bld) 2.6 % Normal 1.0-6.0 [facility] Comment on above: Performed By: #### M G3, PHOS3, HEMDF, BMP3M #### [address] Erythrocyte distribution width (RBC) [Ratio] 14.2 % Normal 11.5-14.5 [facility] Comment on above: Performed By: #### M G3, PHOS3, HEMDF, BMP3M #### [address] [place] Granulocytes/100 WBC (Bld) 63.1 % Normal 40.0-80.0 [facility] Comment on above: Performed By: #### M G3, PHOS3, HEMDF, BMP3M #### [address] Hematocrit (Bld) [Volume fraction] 38.6 % Normal 35.0-47.0 [facility] Comment on above: Performed By: #### M G3, PHOS3, HEMDF, BMP3M #### [address] [place] Hemoglobin (Bld) [Mass/Vol] 13.1 g/dL Normal 11.7-16.0 [facility] Comment on above: Performed By: #### M G3, PHOS3, HEMDF, BMP3M #### [address] [address] [place], [place] Lymphocytes (Bld) [#/Vol] 1.3 10*3/uL Normal 1.0-4.3 [facility] Comment on above: Performed By: #### M G3, PHOS3, HEMDF, BMP3M #### [address] [place] Lymphocytes/100 WBC (Bld) 22.9 % Normal 20.0-40.0 [facility] Comment on above: Performed By: #### M G3, PHOS3, HEMDF, BMP3M #### [address] [place] MCH (RBC) [Entitic mass] 33.7 pg Normal 26.0-34.0 [facility] Comment on above: Performed By: #### M G3, PHOS3, HEMDF, BMP3M #### [address] [place] MCHC 34.0 % Normal 32.0-36.0 [facility] Comment on above: Performed By: #### M G3, PHOS3, HEMDF, BMP3M #### [address] [place] MCV (RBC) [Entitic vol] 99.1 fL High 79.0-98.0 [facility] Comment on above: Performed By: #### M G3, PHOS3, HEMDF, BMP3M #### [address] [address] [place], [place] Monocytes (Bld) [#/Vol] 0.6 10*3/uL Normal 0.0-0.8 [facility] Comment on above: Performed By: #### M G3, PHOS3, HEMDF, BMP3M #### [address] [place] Monocytes/100 WBC (Bld) 10.4 % High 2.0-10.0 [facility] Comment on above: Performed By: #### M G3, PHOS3, HEMDF, BMP3M #### [address] [place], [place] Platelet mean volume (Bld) [Entitic vol] 8.7 fL Normal 7.4-10.4 [facility] Comment on above: Performed By: #### M G3, PHOS3, HEMDF, BMP3M #### [address] [place] Platelets (Bld) [#/Vol] 133 10*3/uL Low 140-440 [facility] Comment on above: Performed By: #### M G3, PHOS3, HEMDF, BMP3M #### [address] [place] RBC (Bld) [#/Vol] 3.90 10*6/uL Normal 3.80-5.20 [facility] Comment on above: Performed By: #### M G3, PHOS3, HEMDF, BMP3M #### [address] [place] WBC (Bld) [#/Vol] 5.9 10*3/uL Normal 3.6-10.7 [facility] Comment on above: Performed By: #### M G3, PHOS3, HEMDF, BMP3M #### [address] [place] Thyroid Stim. Hormoneon 10-16 Thyroid Stim. Hormone 3.729 u[IU]/mL Normal 0.465-4.68 0 [facility] Comment on above: Performed By: #### B MP3 #### [address] [place], [place] Basic Metabolic Panelon 10-15 Calcium [Mass/Vol] 8.6 mg/dL Normal 8.4-10.4 [facility] Comment on above: Performed By: #### M G3, PHOS3, HEMDF, BMP3M #### [facility] [address] [place], [place] Glucose [Mass/Vol] 74 mg/dL Normal 70-100 [facility] Comment on above: Performed By: #### M G3, PHOS3, HEMDF, BMP3M #### [facility] [address] [place], [place] Anion Gap 8 Normal [facility] Comment on above: Performed By: #### M G3, PHOS3, HEMDF, BMP3M #### [facility] [address] [place], [place] CO2 [Moles/Vol] 21 mmol/L Low 22-30 [facility] Comment on above: Performed By: #### M G3, PHOS3, HEMDF, BMP3M #### [facility] [address] [place], [place] Creatinine [Mass/Vol] 0.42 mg/dL Low 0.52-1.25 [facility] Comment on above: Performed By: #### M G3, PHOS3, HEMDF, BMP3M #### [facility] [address] [place], [place] eGFR OTHER > 90.0 Normal >60 [facility] Comment on above: Result Comment: KDIG O guidelines provide the following GFR categories: Stage GFR(ml/min/1.73 m2) Terms G1 >=90 Normal or high G2 60-89 Mildly decreased* G3a 45-59 Mildly to moderately decreased G3b 30-44 Moderately to severely decreased G4 15-29 Severely decreased G5 <15 Kidney failure *Relative to young adult level. In the absence of evidence of kidney damage, neither GFR category G1 nor G2 fulfill the criteria for CKD. The CKD-EPI equation is validated in individuals 18 years of age and older. Currently the best equation for estimating glomerular filtration rate (GFR) from serum creatinine in children is the Bedside Robison equation. It is less accurate in patients with extremes of muscle mass, restriction of dietary protein, ingestion of creatine, extra-renal metabolism of creatinine, or treatment with medications that affect renal tubular creatinine secretion. Performed By: #### M G3, PHOS3, HEMDF, BMP3M #### [facility] [address] [place], [place] GFR/1.73 sq M.predicted among blacks MDRD (S/P/Bld) [Vol rate/Area] mL/min/{1.73_m2} Normal >60 [facility] Comment on above: Performed By: #### M G3, PHOS3, HEMDF, BMP3M #### [address] [place] Urea nitrogen [Mass/Vol] 4 mg/dL Low 7-20 [facility] Comment on above: Performed By: #### M G3, PHOS3, HEMDF, BMP3M #### [address] [place] Chloride [Moles/Vol] 104 mmol/L Normal 98-107 [facility] Comment on above: Performed By: #### M G3, PHOS3, HEMDF, BMP3M #### [address] [address] [place], [place] Potassium [Moles/Vol] 3.7 mmol/L Normal 3.5-5.1 [facility] Comment on above: Performed By: #### M G3, PHOS3, HEMDF, BMP3M #### [address] [place] Sodium [Moles/Vol] 133 mmol/L Low 135-145 [facility] Comment on above: Performed By: #### M G3, PHOS3, HEMDF, BMP3M #### [address] [place] Hemogram w/ Autodiffon 11-11 Abs Baso Cnt 0.1 10*3/uL Normal 0.0-0.2 [facility] Comment on above: Performed By: #### M G3, PHOS3, HEMDF, BMP3M #### [address] Abs Neutrophile Cnt 3.7 10*3/uL Normal 1.8-7.0 [facility] Comment on above: Performed By: #### M G3, PHOS3, HEMDF, BMP3M #### [address] Basophils/100 WBC (Bld) 1.0 % Normal 0.0-2.0 [facility] Comment on above: Performed By: #### M G3, PHOS3, HEMDF, BMP3M #### [address] Eosinophils (Bld) [#/Vol] 0.2 10*3/uL Normal 0.0-0.5 [facility] Comment on above: Performed By: #### M G3, PHOS3, HEMDF, BMP3M #### [address] Eosinophils/100 WBC (Bld) 2.9 % Normal 1.0-6.0 [facility] Comment on above: Performed By: #### M G3, PHOS3, HEMDF, BMP3M #### [address] Erythrocyte distribution width (RBC) [Ratio] 14.9 % High 11.5-14.5 [facility] Comment on above: Performed By: #### M G3, PHOS3, HEMDF, BMP3M #### [address] Granulocytes/100 WBC (Bld) 64.2 % Normal 40.0-80.0 [facility] Comment on above: Performed By: #### M G3, PHOS3, HEMDF, BMP3M #### [address] Hematocrit (Bld) [Volume fraction] 42.7 % Normal 35.0-47.0 [facility] Comment on above: Performed By: #### M G3, PHOS3, HEMDF, BMP3M #### [address] Hemoglobin (Bld) [Mass/Vol] 14.3 g/dL Normal 11.7-16.0 [facility] Comment on above: Performed By: #### M G3, PHOS3, HEMDF, BMP3M #### [place] [id number] [address] [place], [place] Lymphocytes (Bld) [#/Vol] 1.3 10*3/uL Normal 1.0-4.3 [facility] Comment on above: Performed By: #### M G3, PHOS3, HEMDF, BMP3M #### [place] [id number] [place], [place] Lymphocytes/100 WBC (Bld) 22.0 % Normal 20.0-40.0 [facility] Comment on above: Performed By: #### M G3, PHOS3, HEMDF, BMP3M #### [place] [address] [place], [place] MCH (RBC) [Entitic mass] 33.5 pg Normal 26.0-34.0 [facility] Comment on above: Performed By: #### M G3, PHOS3, HEMDF, BMP3M #### [place] [address] [address] [place], [place] MCHC 33.4 % Normal 32.0-36.0 [facility] Comment on above: Performed By: #### M G3, PHOS3, HEMDF, BMP3M #### [address] MCV (RBC) [Entitic vol] 100.2 fL High 79.0-98.0 [facility] Comment on above: Performed By: #### M G3, PHOS3, HEMDF, BMP3M #### [address] [place], [place] Monocytes (Bld) [#/Vol] 0.6 10*3/uL Normal 0.0-0.8 [facility] Comment on above: Performed By: #### M G3, PHOS3, HEMDF, BMP3M #### [address] Monocytes/100 WBC (Bld) 9.9 % Normal 2.0-10.0 [facility] Comment on above: Performed By: #### M G3, PHOS3, HEMDF, BMP3M #### [address] [address] [place], [place] Platelet mean volume (Bld) [Entitic vol] 9.1 fL Normal 7.4-10.4 [facility] Comment on above: Performed By: #### M G3, PHOS3, HEMDF, BMP3M #### [address] [place], [place] Platelets (Bld) [#/Vol] 143 10*3/uL Normal 140-440 [facility] Comment on above: Performed By: #### M G3, PHOS3, HEMDF, BMP3M #### [address] [place], [place] RBC (Bld) [#/Vol] 4.26 10*6/uL Normal 3.80-5.20 [facility] Comment on above: Performed By: #### M G3, PHOS3, HEMDF, BMP3M #### [address] [place], [place] WBC (Bld) [#/Vol] 5.8 10*3/uL Normal 3.6-10.7 [facility] Comment on above: Performed By: #### M G3, PHOS3, HEMDF, BMP3M #### [address] [place], [place] Basic Metabolic Panelon -2 Calcium [Mass/Vol] 8.4 mg/dL Normal 8.4-10.4 [facility] Comment on above: Performed By: #### M G3, PHOS3, HEMDF, BMP3M #### [address] [place], [place] Glucose [Mass/Vol] 66 mg/dL Low 70-100 [facility] Comment on above: Performed By: #### M G3, PHOS3, HEMDF, BMP3M #### [address] [place], [place] Anion Gap 9 Normal [facility] Comment on above: Performed By: #### M G3, PHOS3, HEMDF, BMP3M #### [address] [place], [place] CO2 [Moles/Vol] 20 mmol/L Low 22-30 [facility] Comment on above: Performed By: #### M G3, PHOS3, HEMDF, BMP3M #### [facility] [address], [place] Creatinine [Mass/Vol] 0.38 mg/dL Low 0.52-1.25 [facility] Comment on above: Performed By: #### M G3, PHOS3, HEMDF, BMP3M #### [facility] [address] [place], [place] eGFR OTHER > 90.0 Normal >60 [facility] Comment on above: Result Comment: KDIG O guidelines provide the following GFR categories: Stage GFR(ml/min/1.73 m2) Terms G1 >=90 Normal or high G2 60-89 Mildly decreased* G3a 45-59 Mildly to moderately decreased G3b 30-44 Moderately to severely decreased G4 15-29 Severely decreased G5 <15 Kidney failure *Relative to young adult level. In the absence of evidence of kidney damage, neither GFR category G1 nor G2 fulfill the criteria for CKD. The CKD-EPI equation is validated in individuals 18 years of age and older. Currently the best equation for estimating glomerular filtration rate (GFR) from serum creatinine in children is the Bedside Robison equation. It is less accurate in patients with extremes of muscle mass, restriction of dietary protein, ingestion of creatine, extra-renal metabolism of creatinine, or treatment with medications that affect renal tubular creatinine secretion. Performed By: #### M G3, PHOS3, HEMDF, BMP3M #### [facility] [address] [place], [place] GFR/1.73 sq M.predicted among blacks MDRD (S/P/Bld) [Vol rate/Area] mL/min/{1.73_m2} Normal >60 [facility] Comment on above: Performed By: #### M G3, PHOS3, HEMDF, BMP3M #### [facility] [address], [place] Urea nitrogen [Mass/Vol] 6 mg/dL Low 7-20 [facility] Comment on above: Performed By: #### M G3, PHOS3, HEMDF, BMP3M #### [facility] [address] [place], [place] Chloride [Moles/Vol] 107 mmol/L Normal 98-107 [facility] Comment on above: Performed By: #### M G3, PHOS3, HEMDF, BMP3M #### [facility] [address] [place], [place] Potassium [Moles/Vol] 3.8 mmol/L Normal 3.5-5.1 [facility] Comment on above: Performed By: #### M G3, PHOS3, HEMDF, BMP3M #### [facility] [address] [place], [place] Sodium [Moles/Vol] 136 mmol/L Normal 135-145 [facility] Comment on above: Performed By: #### M G3, PHOS3, HEMDF, BMP3M #### [facility] [address] [place], [place] Glucose,Bedsideon 11-10-2020 Glucose [Mass/Vol] 114 mg/dL High 70-100 [facility] Comment on above: Result Comment: Test performed by glucose meter. Results may be 10%-15% lower than serum/plasma values. (CLIA ID [id number]) Performed By: #### M G3, PHOS3, HEMDF, BMP3M #### [facility] [address] [place], [place] Hemogram w/ Autodiffon 11-10 Abs Baso Cnt 0.0 10*3/uL Normal 0.0-0.2 [facility] Comment on above: Performed By: #### M G3, PHOS3, HEMDF, BMP3M #### [facility] [address] [place], [place] Abs Neutrophile Cnt 5.4 10*3/uL Normal 1.8-7.0 [facility] Comment on above: Performed By: #### M G3, PHOS3, HEMDF, BMP3M #### [facility] [address] [place], [place] Basophils/100 WBC (Bld) 0.7 % Normal 0.0-2.0 [facility] Comment on above: Performed By: #### M G3, PHOS3, HEMDF, BMP3M #### [address] [place], [place] Eosinophils (Bld) [#/Vol] 0.1 10*3/uL Normal 0.0-0.5 [facility] Comment on above: Performed By: #### M G3, PHOS3, HEMDF, BMP3M #### [address] [place], [place] Eosinophils/100 WBC (Bld) 2.0 % Normal 1.0-6.0 [facility] Comment on above: Performed By: #### M G3, PHOS3, HEMDF, BMP3M #### [address] [place], [place] Erythrocyte distribution width (RBC) [Ratio] 14.5 % Normal 11.5-14.5 [facility] Comment on above: Performed By: #### M G3, PHOS3, HEMDF, BMP3M #### [address] [place], [place] Granulocytes/100 WBC (Bld) 77.2 % Normal 40.0-80.0 [facility] Comment on above: Performed By: #### M G3, PHOS3, HEMDF, BMP3M #### [address] [place], [place] Hematocrit (Bld) [Volume fraction] 40.4 % Normal 35.0-47.0 [facility] Comment on above: Performed By: #### M G3, PHOS3, HEMDF, BMP3M #### [address] [place], [place] Hemoglobin (Bld) [Mass/Vol] 13.6 g/dL Normal 11.7-16.0 [facility] Comment on above: Performed By: #### M G3, PHOS3, HEMDF, BMP3M #### [address] [address] [place], [place] Lymphocytes (Bld) [#/Vol] 1.0 10*3/uL Normal 1.0-4.3 [facility] Comment on above: Performed By: #### M G3, PHOS3, HEMDF, BMP3M #### [address] [address] [place], [place] Lymphocytes/100 WBC (Bld) 13.9 % Low 20.0-40.0 [facility] Comment on above: Performed By: #### M G3, PHOS3, HEMDF, BMP3M #### [address] [address] [place], [place] MCH (RBC) [Entitic mass] 34.2 pg High 26.0-34.0 [facility] Comment on above: Performed By: #### M G3, PHOS3, HEMDF, BMP3M #### [address] [address] [place], [place] MCHC 33.8 % Normal 32.0-36.0 [facility] Comment on above: Performed By: #### Ruben G3, PHOS3, HEMDF, BMP3M #### [address] MCV (RBC) [Entitic vol] 101.2 fL High 79.0-98.0 [facility] Comment on above: Performed By: #### M G3, PHOS3, HEMDF, BMP3M #### [address] Monocytes (Bld) [#/Vol] 0.4 10*3/uL Normal 0.0-0.8 [facility] Comment on above: Performed By: #### M G3, PHOS3, HEMDF, BMP3M #### [address] [address] [place], [place] Monocytes/100 WBC (Bld) 6.2 % Normal 2.0-10.0 [facility] Comment on above: Performed By: #### M G3, PHOS3, HEMDF, BMP3M #### [address] [address] [place], [place] Platelet mean volume (Bld) [Entitic vol] 7.6 fL Normal 7.4-10.4 [facility] Comment on above: Performed By: #### M G3, PHOS3, HEMDF, BMP3M #### [facility] [address] [place], [place] Platelets (Bld) [#/Vol] 155 10*3/uL Normal 140-440 [facility] Comment on above: Performed By: #### M G3, PHOS3, HEMDF, BMP3M #### [address] [place], [place] RBC (Bld) [#/Vol] 3.99 10*6/uL Normal 3.80-5.20 [facility] Comment on above: Performed By: #### M G3, PHOS3, HEMDF, BMP3M #### [address] [place], [place] WBC (Bld) [#/Vol] 7.0 10*3/uL Normal 3.6-10.7 [facility] Comment on above: Performed By: #### M G3, PHOS3, HEMDF, BMP3M #### [address] [place], [place] Basic Metabolic Panelon -2 Calcium [Mass/Vol] 7.8 mg/dL Low 8.4-10.4 [facility] Comment on above: Performed By: #### M G3, PHOS3, HEMDF, BMP3M #### [address] [place], [place] Anion Gap 6 Normal [facility] Comment on above: Performed By: #### M G3, PHOS3, HEMDF, BMP3M #### [address] [place], [place] CO2 [Moles/Vol] 22 mmol/L Normal 22-30 [facility] Comment on above: Performed By: #### M G3, PHOS3, HEMDF, BMP3M #### [address] [place], [place] Glucose [Mass/Vol] 84 mg/dL Normal 70-100 [facility] Comment on above: Performed By: #### M G3, PHOS3, HEMDF, BMP3M #### [facility] [address] [place], [place] Urea nitrogen [Mass/Vol] 16 mg/dL Normal 7-20 [facility] Comment on above: Performed By: #### M G3, PHOS3, HEMDF, BMP3M #### [facility] [address] [place], [place] Creatinine [Mass/Vol] 0.38 mg/dL Low 0.52-1.25 [facility] Comment on above: Performed By: #### M G3, PHOS3, HEMDF, BMP3M #### [facility] [address] [place], [place] eGFR OTHER > 90.0 Normal >60 [facility] Comment on above: Result Comment: KDIG O guidelines provide the following GFR categories: Stage GFR(ml/min/1.73 m2) Terms G1 >=90 Normal or high G2 60-89 Mildly decreased* G3a 45-59 Mildly to moderately decreased G3b 30-44 Moderately to severely decreased G4 15-29 Severely decreased G5 <15 Kidney failure *Relative to young adult level. In the absence of evidence of kidney damage, neither GFR category G1 nor G2 fulfill the criteria for CKD. The CKD-EPI equation is validated in individuals 18 years of age and older. Currently the best equation for estimating glomerular filtration rate (GFR) from serum creatinine in children is the Bedside Robison equation. It is less accurate in patients with extremes of muscle mass, restriction of dietary protein, ingestion of creatine, extra-renal metabolism of creatinine, or treatment with medications that affect renal tubular creatinine secretion. Performed By: #### M G3, PHOS3, HEMDF, BMP3M #### [facility] [address] [place], [place] GFR/1.73 sq M.predicted among blacks MDRD (S/P/Bld) [Vol rate/Area] mL/min/{1.73_m2} Normal >60 [facility] Comment on above: Performed By: #### M G3, PHOS3, HEMDF, BMP3M #### [facility] [address] [place], [place] Chloride [Moles/Vol] 109 mmol/L High 98-107 [facility] Comment on above: Performed By: #### M G3, PHOS3, HEMDF, BMP3M #### [facility] [address] [place] [address] Potassium [Moles/Vol] 3.9 mmol/L Normal 3.5-5.1 [facility] Comment on above: Result Comment: Slig htly hemolysed, interpret with caution. Performed By: #### M G3, PHOS3, HEMDF, BMP3M #### [facility] [address] [place] [address] Sodium [Moles/Vol] 137 mmol/L Normal 135-145 [facility] Comment on above: Performed By: #### M G3, PHOS3, HEMDF, BMP3M #### [facility] [address] [place] [address] [place] Head or Brain w/o Contras ton 11-09-2020 CT Head or Brain w/o Contrast Patient Name: JAZMIN JOHNSON Computed Tomography ACCESSION EXAM DATE/TIME PROCEDURE ORDERING PROVIDER [id number] 11/09/2020 10:[address] Head or Brain w/o CHRISTIANO EMMANUEL Contrast CPT code 79283 Reason For Exam (CT Head or Brain w/o Contrast) assess for worsening bleed Report CLINICAL INFORMATION: Subdural hematomas. 3 mm axial cuts through the head are obtained without IV contrast. The examination is compared to a previous study dated 11/08/2020. FINDINGS: Subdural collections/hygromas are redemonstrated bilaterally. There is thin increased density in the right frontal region of the subdural space. This is unchanged from the prior study. There is moderate cortical atrophy, particularly in the frontal lobes. The ventricles are within normal limits in respect to their size and configuration. There is no CT evidence of an acute infarct. Bone windows demonstrate no evidence of fracture. Chronic inflammatory changes are noted in the bilateral ethmoid, bilateral frontal, and left sphenoid sinuses. The mastoid air cells are clear. IMPRESSION: 1. Frontal atrophy with stable subdural collections/hygromas. 2. Chronic sinusitis. Report Dictated on Final Dictated: 11/09/2020 10:47 am Dictating Physician: MD QUINTANILLA JEFFREY Signed Date and Time: 11/09/2020 10:49 am Signed by: MD QUINTANILLA JEFFREY Transcribed Date and Time: 11/09/2020 10:47 Normal [facility] Hemogram w/ Autodiffon 11-09 Abs Baso Cnt 0.0 10*3/uL Normal 0.0-0.2 [facility] Comment on above: Performed By: #### M G3, PHOS3, HEMDF, BMP3M #### [facility] [address] [place], [place] Abs Neutrophile Cnt 3.4 10*3/uL Normal 1.8-7.0 [facility] Comment on above: Performed By: #### M G3, PHOS3, HEMDF, BMP3M #### [address] [address] [place], [place] Basophils/100 WBC (Bld) 0.5 % Normal 0.0-2.0 [facility] Comment on above: Performed By: #### M G3, PHOS3, HEMDF, BMP3M #### [address] [address] [place], [place] Eosinophils (Bld) [#/Vol] 0.1 10*3/uL Normal 0.0-0.5 [facility] Comment on above: Performed By: #### M G3, PHOS3, HEMDF, BMP3M #### [address] [address] [place], [place] Eosinophils/100 WBC (Bld) 1.0 % Normal 1.0-6.0 [facility] Comment on above: Performed By: #### M G3, PHOS3, HEMDF, BMP3M #### [address] Erythrocyte distribution width (RBC) [Ratio] 14.7 % High 11.5-14.5 [facility] Comment on above: Performed By: #### M G3, PHOS3, HEMDF, BMP3M #### [address] [address] [place], [place] Granulocytes/100 WBC (Bld) 62.3 % Normal 40.0-80.0 [facility] Comment on above: Performed By: #### M G3, PHOS3, HEMDF, BMP3M #### [address] [place], [place] Hematocrit (Bld) [Volume fraction] 33.8 % Low 35.0-47.0 [facility] Comment on above: Performed By: #### M G3, PHOS3, HEMDF, BMP3M #### [address] [place], [place] Hemoglobin (Bld) [Mass/Vol] 11.5 g/dL Low 11.7-16.0 [facility] Comment on above: Performed By: #### M G3, PHOS3, HEMDF, BMP3M #### [address] [address] [place], [place] Lymphocytes (Bld) [#/Vol] 1.3 10*3/uL Normal 1.0-4.3 [facility] Comment on above: Performed By: #### M G3, PHOS3, HEMDF, BMP3M #### [address] [place], [place] Lymphocytes/100 WBC (Bld) 24.9 % Normal 20.0-40.0 [facility] Comment on above: Performed By: #### M G3, PHOS3, HEMDF, BMP3M #### [address] [place], [place] MCH (RBC) [Entitic mass] 33.9 pg Normal 26.0-34.0 [facility] Comment on above: Performed By: #### M G3, PHOS3, HEMDF, BMP3M #### [address] [place] MCHC 34.1 % Normal 32.0-36.0 [facility] Comment on above: Performed By: #### M G3, PHOS3, HEMDF, BMP3M #### [address] [address] [place], [place] MCV (RBC) [Entitic vol] 99.3 fL High 79.0-98.0 [facility] Comment on above: Performed By: #### M G3, PHOS3, HEMDF, BMP3M #### [address] [place], [place] Monocytes (Bld) [#/Vol] 0.6 10*3/uL Normal 0.0-0.8 [facility] Comment on above: Performed By: #### M G3, PHOS3, HEMDF, BMP3M #### [address] [place], [place] Monocytes/100 WBC (Bld) 11.3 % High 2.0-10.0 [facility] Comment on above: Performed By: #### M G3, PHOS3, HEMDF, BMP3M #### [address] [place], [place] Platelet mean volume (Bld) [Entitic vol] 7.9 fL Normal 7.4-10.4 [facility] Comment on above: Performed By: #### M G3, PHOS3, HEMDF, BMP3M #### [address] [place], [place] Platelets (Bld) [#/Vol] 175 10*3/uL Normal 140-440 [facility] Comment on above: Performed By: #### M G3, PHOS3, HEMDF, BMP3M #### [address] [place], [place] RBC (Bld) [#/Vol] 3.40 10*6/uL Low 3.80-5.20 [facility] Comment on above: Performed By: #### M G3, PHOS3, HEMDF, BMP3M #### [address] [place] WBC (Bld) [#/Vol] 5.4 10*3/uL Normal 3.6-10.7 [facility] Comment on above: Performed By: #### M G3, PHOS3, HEMDF, BMP3M #### [address] [place], [place] Magnesiumon 11-09-2020 Magnesium [Mass/Vol] 1.5 mg/dL Low 1.6-2.3 [facility] Comment on above: Result Comment: Slig htly hemolysed, interpret with caution. Performed By: #### M G3, PHOS3, HEMDF, BMP3M #### [facility] [address] [place] [address] Phosphoruson 11-09-2020 Phosphate [Mass/Vol] 1.6 mg/dL Low 2.5-4.5 [facility] Comment on above: Result Comment: Slig htly hemolysed, interpret with caution. Performed By: #### M G3, PHOS3, HEMDF, BMP3M #### [address] [place] [address] Basic Metabolic Panelon 10-15 Calcium [Mass/Vol] 8.4 mg/dL Normal 8.4-10.4 [facility] Comment on above: Performed By: #### M G3, PHOS3, HEMDF, BMP3M #### [address] [place], [place] Glucose [Mass/Vol] 53 mg/dL Low 70-100 [facility] Comment on above: Performed By: #### M G3, PHOS3, HEMDF, BMP3M #### [address] [place], [place] Urea nitrogen [Mass/Vol] 21 mg/dL High 7-20 [facility] Comment on above: Performed By: #### M G3, PHOS3, HEMDF, BMP3M #### [address] [place], [place] Anion Gap 16 Normal [facility] Comment on above: Performed By: #### M G3, PHOS3, HEMDF, BMP3M #### [address] [place], [place] CO2 [Moles/Vol] 19 mmol/L Low 22-30 [facility] Comment on above: Performed By: #### M G3, PHOS3, HEMDF, BMP3M #### [address] [place], [place] Creatinine [Mass/Vol] 0.53 mg/dL Normal 0.52-1.25 [facility] Comment on above: Performed By: #### M G3, PHOS3, HEMDF, BMP3M #### [facility] [address], [place] eGFR OTHER > 90.0 Normal >60 [facility] Comment on above: Result Comment: KDIG O guidelines provide the following GFR categories: Stage GFR(ml/min/1.73 m2) Terms G1 >=90 Normal or high G2 60-89 Mildly decreased* G3a 45-59 Mildly to moderately decreased G3b 30-44 Moderately to severely decreased G4 15-29 Severely decreased G5 <15 Kidney failure *Relative to young adult level. In the absence of evidence of kidney damage, neither GFR category G1 nor G2 fulfill the criteria for CKD. The CKD-EPI equation is validated in individuals 18 years of age and older. Currently the best equation for estimating glomerular filtration rate (GFR) from serum creatinine in children is the Bedside Robison equation. It is less accurate in patients with extremes of muscle mass, restriction of dietary protein, ingestion of creatine, extra-renal metabolism of creatinine, or treatment with medications that affect renal tubular creatinine secretion. Performed By: #### M G3, PHOS3, HEMDF, BMP3M #### [address] [place] [address] [place], [place] GFR/1.73 sq M.predicted among blacks MDRD (S/P/Bld) [Vol rate/Area] mL/min/{1.73_m2} Normal >60 [facility] Comment on above: Performed By: #### M G3, PHOS3, HEMDF, BMP3M #### [facility] [address], [place] Chloride [Moles/Vol] 106 mmol/L Normal 98-107 [facility] Comment on above: Performed By: #### M G3, PHOS3, HEMDF, BMP3M #### [address] Potassium [Moles/Vol] 4.3 mmol/L Normal 3.5-5.1 [facility] Comment on above: Result Comment: Slig htly hemolysed, interpret with caution. Performed By: #### M G3, PHOS3, HEMDF, BMP3M #### [facility] [address] [place], [place] Sodium [Moles/Vol] 141 mmol/L Normal 135-145 [facility] Comment on above: Performed By: #### M G3, PHOS3, HEMDF, BMP3M #### [facility] [address] [place], [place] COVID and Resp PCR Panelon 0 11-08-2020 SARS-CoV-2 (COVID-19) RNA CY+probe Ql (Unsp spec) COVID and Resp PCR Panel --> Status: F POSITIVE: SARS-CoV-2 DETECTED. _ Expected Result: Not Detected The [employer] Upper Respiratory Pathogens PCR Panel can detect the following targets: SARS-CoV-2, Adenovirus, Coronavirus 229E, Coronavirus HKU1, Coronavirus NL63, Coronavirus OC43, Human Metapneumovirus, Human Rhinovirus/Enterovirus , Influenza A, Influenza B, Parainfluenza Virus 1, Parainfluenza Virus 2, Parainfluenza Virus 3, Parainfluenza Virus 4, Respiratory Syncytial Virus, Bordetella pertussis, Bordetella parapertussis, Chlamydia pneumoniae, Mycoplasma pneumoniae. Negative results do not preclude SARS-CoV-2 infection and should not be used as the sole basis for treatment or other patient management decisions. This assay was developed by [employer] and distributed under an Emergency Use Authorization (EUA) granted by the FDA for the qualitative detection of SARS-CoV-2 nucleic acid. Provider and patient fact sheets can be found at https://www.fda.gov/[place] caio/642428/download and https://www.fda.gov/[place] caio/846128/download. _ Expected Result: Not Detected The [employer] Upper Respiratory Pathogens PCR Panel can detect the following targets: SARS-CoV-2, Adenovirus, Coronavirus 229E, Coronavirus HKU1, Coronavirus NL63, Coronavirus OC43, Human Metapneumovirus, Human Rhinovirus/Enterovirus , Influenza A, Influenza B, Parainfluenza Virus 1, Parainfluenza Virus 2, Parainfluenza Virus 3, Parainfluenza Virus 4, Respiratory Syncytial Virus, Bordetella pertussis, Bordetella parapertussis, Chlamydia pneumoniae, Mycoplasma pneumoniae. Negative results do not preclude SARS-CoV-2 infection and should not be used as the sole basis for treatment or other patient management decisions. This assay was developed by [employer] and distributed under an Emergency Use Authorization (EUA) granted by the FDA for the qualitative detection of SARS-CoV-2 nucleic acid. Provider and patient fact sheets can be found at https://www.[facility].gov/[place] caio/081450/download and https://www.fda.gov/[place] caio/159931/download. Abnormal [facility] Comment on above: Performed By: #### M G3, PHOS3, HEMDF, BMP3M #### [facility] [address] [place] [address] CR Chest Portableon 11-08-19 21 CR Chest Portable Patient Name: JAZMIN JOHNSON Diagnostic Radiology ACCESSION EXAM DATE/TIME PROCEDURE ORDERING PROVIDER [id number] 11/08/2020 09:22 EST CR Chest Portable [id number] [place], [place] [address] CPT code 88138 Reason For Exam (CR Chest Portable) covid + Report Examination: AP portable chest Clinical Indication: covid + Comparison: None Findings: Lungs appear normally inflated. Trace subsegmental atelectasis right lower lung. There is no focal consolidation, effusion, or pulmonary edema identified. The cardiomediastinal silhouette is within normal limits. Atherosclerotic calcification aortic arch. Mild degenerative changes shoulders and spine. Impression: No acute cardiopulmonary process. Report Dictated on Workstation: [id number] Dictated: 11/08/2020 8:32 am Dictating Physician: MD CROWELL ANTHONY J Signed Date and Time: 11/08/2020 8:32 am Signed by: MD CROWELL ANTHONY J Transcribed Date and Time: 11/08/2020 8:32 Normal [facility] CT Head or Brain w/o Contras ton 11-08-2020 CT Head or Brain w/o Contrast [id number] Tom[facility] ACCESSION EXAM DATE/TIME PROCEDURE ORDERING PROVIDER [id number] 11/08/2020 14:[address] Head or Brain w/o MD SIDNEY, ANGELICA Dennison CPT code 36351 Reason For Exam (CT Head or Brain w/o Contrast) acute on chronic subdural hematomas Report CLINICAL INFORMATION: Acute on chronic subdural hematoma. Follow-up examination. CT HEAD WITHOUT INTRAVENOUS CONTRAST: Volume acquisition CT images are obtained from foramen magnum to vertex without intravenous contrast with axial, coronal and sagittal 2-D reconstructions. The patient's head is asymmetrically positioned within the gantry. Comparison is made to the examination of the previous day. There are chronic bilateral subdural hematomas or hygromas, left larger than right but similar in, size, configuration and distribution to the prior examination. The additional increased density in the right frontal subdural collection is slightly decreased from the previous day consistent with interval partial maturation of superimposed relatively acute to subacute hemorrhage. The ventricles and sulci are unremarkable in size and configuration. No intra-axial mass lesion or mass-effect is seen. There is subtle hypodensity in the posterior right temporal lobe consistent with mild/early encephalomalacia from prior hemorrhage. There is no evidence of acute intracranial hemorrhage or other or new focal abnormal intra-axial densities. There is circumferential mucosal thickening of the left-sided the sphenoid in both frontal sinuses with small air-fluid levels similar to prior examination. No new abnormal paranasal sinus densities are identified. IMPRESSION: 1. Asymmetric head positioning. 2. Chronic bilateral subdural hematomas/hygromas, left larger than right, with slight decrease in the additional density in the right frontal subdural collection consistent with interval partial maturation of superimposed relatively acute to subacute hemorrhage. 3. Mild/early encephalomalacia in the right temporal lobe from prior hemorrhage. 4. No other or new abnormal intra-axial or intracranial densities 5. Bilateral maxillary and left sphenoid sinusitis similar to prior examination. Computed Tomography Report Report Dictated on Final Dictated: 11/08/2020 3:14 pm Dictating Physician: MD BRADY HARLAN Signed Date and Time: 11/08/2020 3:27 pm Signed by: CAITLYN, MD, JEROME Transcribed Date and Time: 11/08/2020 3:15 Normal [facility] Ethanol Serum/Plasmaon 11-08 Ethanol-Serum/Plasma 0.210 g/dL High 0.000-0.010 [facility] Comment on above: Result Comment: NOTE : This result is for medical treatment only. Analysis performed using non-forensic procedures. Performed By: #### E TOH4 #### [facility] [address] [place], [place] Glucose,Bedsideon 11-08-2020 Glucose [Mass/Vol] 139 mg/dL High 70-100 [facility] Comment on above: Result Comment: Test performed by glucose meter. Results may be 10%-15% lower than serum/plasma values. (CLIA ID [id number]) Performed By: #### M G3, PHOS3, HEMDF, BMP3M #### [facility] [address] [place], [place] Glucose [Mass/Vol] 57 mg/dL Low 70-100 [facility] Comment on above: Result Comment: Test performed by glucose meter. Results may be 10%-15% lower than serum/plasma values. (CLIA ID [id number]) Performed By: #### M G3, PHOS3, HEMDF, BMP3M #### [facility] [address] [place], [place] Hepatic Functionon ALP [Catalytic activity/Vol] 86 U/L Normal 38-126 [facility] Comment on above: Result Comment: Slig htly hemolysed, interpret with caution. Performed By: #### E TOH4 #### [facility] [address], [place] ALT [Catalytic activity/Vol] 22 U/L Normal 0-34 [facility] Comment on above: Result Comment: The ALT test is performed by an updated assay method. Please note that the reference intervals have been changed and are now sex specific. Performed By: #### E TOH4 #### [facility] [address] [place], [place] AST [Catalytic activity/Vol] 49 U/L High 15-46 [facility] Comment on above: Result Comment: Slig htly hemolysed, interpret with caution. Performed By: #### E TOH4 #### [facility] [address] [place], [place] Bilirubin [Mass/Vol] 0.7 mg/dL Normal 0.2-1.3 [facility] Comment on above: Performed By: #### E TOH4 #### [facility] [address] [place], [place] Bilirubin.indirect [Mass/Vol] 0.0 mg/dL Normal 0.0-0.3 [facility] Comment on above: Performed By: #### E TOH4 #### [place] [address] [place], [place] Protein [Mass/Vol] 7.1 g/dL Normal 6.3-8.2 [facility] Comment on above: Result Comment: Slig htly hemolysed, interpret with caution. Performed By: #### E TOH4 #### [place] [address] [place], [place] Albumin [Mass/Vol] 3.9 g/dL Normal 3.5-5.0 [facility] Comment on above: Result Comment: Slig htly hemolysed, interpret with caution. Performed By: #### E TOH4 #### [place] [address] [place], [place] Protime AND APTTon aPTT Coag (Bld) [Time] 23.1 s Normal 20.0-30.5 [facility] Comment on above: Result Comment: NOTE : The therapeutic time for Heparin anticoagulation, based on Xa activity inhibition, is an APTT of 46-80 seconds. Performed By: #### E TOH4 #### [place] [address] [place], [place] INR 0.9 Normal 0.9-1.1 [facility] Comment on above: Result Comment: Daniel mmended Anticoagulant Therapy: SEE BELOW ----- INR of 2.0 - 3.0 : - Prophylaxis of Venous Thrombosis (high-risk surgery) - Treatment of Venous Thrombosis - Treatment of Pulmonary Embolism (Includes tissue heart valves, Acute Myocardial Infarction to prevent systemic embolism, Valvular Heart Disease, and Atrial Fibrillation) ----- INR of 2.5 - 3.5 : - Mechanical Prosthetic Valves (high risk) - If oral anticoagulant therapy is used to prevent Myocardial Infarction Performed By: #### E TOH4 #### [facility] [address] [place] [address] PT Coag (PPP) [Time] 10.2 s Normal 9.0-12.0 [facility] Comment on above: Result Comment: . Performed By: #### E TOH4 #### [facility] [address] [place] [address] Add on test from HISon 11-07 Add on test from HIS Accepted Normal [facility] Comment on above: Result Comment: Spec imen available & acceptable for analysis. Performed By: #### K 3, MG3 #### [facility] [address] [place] [address] CT Head or Brain w/o Contras ton 11-07-2020 CT Head or Brain w/o Contrast Patient Name: JAZMIN JOHNSON Computed Tomography ACCESSION EXAM DATE/TIME PROCEDURE ORDERING PROVIDER [id number] 11/07/2020 19:[address] Head or Brain w/o MD FAINA, OSCAR De La [place] Contrast CPT code 21274 Reason For Exam (CT Head or Brain w/o Contrast) altered mental status, history of intracranial bleed within the last month Report EXAMINATION: CT of the Head without Contrast. COMPARISON: 10/21/2020. REASON FOR STUDY: Altered mental status, recent history of intracranial bleed. TECHNIQUE: Contiguous multiplanar 3 mm images were extended from the skull base through the vertex. FINDINGS: Brain: Minimal ill-defined hypoattenuation is observed in the right temporal lobe at the site of prior hematoma. Meek-white matter differentiation otherwise appears normal elsewhere. Ventricles And Cisterns: Lateral ventricles and frontal sulci are prominent. There is no shift of midline structures. Vascular: No significant findings. Extra-Axial Spaces: Hypoattenuating widening of the frontal cerebrospinal fluid spaces redemonstrated. Orbits: The orbits are symmetric and within normal limits. Sinuses: Mucosal thickening is evident in the frontal, ethmoid and sphenoid sinuses. Skull And Scalp: No skull defect is observed. There is no appreciable scalp lesion. CONCLUSION(S): Computed Tomography Report 1. Acute/subacute superimposed on chronic bifrontal subdural hematomas. 2. Near-total regression of right temporal hematoma with minimal residual infarct. 3. Inflammatory changes in the frontal, ethmoid and sphenoid sinuses. Report Dictated on Final Dictating Physician: MD JOHNSON B NELSON Signed Date and Time: 11/07/2020 7:28 pm Signed by: MD JOHNSON B NELSON Transcribed Date and Time: 11/07/2020 7:29 Normal [facility] Comp Metabolic Panelon 11-07 ALT [Catalytic activity/Vol] 23 U/L Normal 0-34 [facility] Comment on above: Result Comment: The ALT test is performed by an updated assay method. Please note that the reference intervals have been changed and are now sex specific. Performed By: #### B MP3, CK3, TROPN, LFT3, HEMDF, NH33, ETOH4 #### [facility] [address] [place] [address] Calcium [Mass/Vol] 9.5 mg/dL Normal 8.4-10.4 [facility] Comment on above: Performed By: #### B MP3, CK3, TROPN, LFT3, HEMDF, NH33, ETOH4 #### [facility] [address] [place] [address] Glucose [Mass/Vol] 71 mg/dL Normal 70-100 [facility] Comment on above: Performed By: #### B MP3, CK3, TROPN, LFT3, HEMDF, NH33, ETOH4 #### [facility] [address] [place] [address] Urea nitrogen [Mass/Vol] 22 mg/dL High 7-20 [facility] Comment on above: Performed By: #### B MP3, CK3, TROPN, LFT3, HEMDF, NH33, ETOH4 #### [facility] [address] [place] [address] ALP [Catalytic activity/Vol] 128 U/L High 38-126 [facility] Comment on above: Performed By: #### B MP3, CK3, TROPN, LFT3, HEMDF, NH33, ETOH4 #### [facility] [address] [place] [address] Anion Gap 15 Normal [facility] Comment on above: Performed By: #### B MP3, CK3, TROPN, LFT3, HEMDF, NH33, ETOH4 #### [facility] [address] [place] [address] AST [Catalytic activity/Vol] 45 U/L Normal 15-46 [facility] Comment on above: Performed By: #### B MP3, CK3, TROPN, LFT3, HEMDF, NH33, ETOH4 #### [facility] [address] [place] [address] Bilirubin [Mass/Vol] 0.4 mg/dL Normal 0.2-1.3 [facility] Comment on above: Performed By: #### B MP3, CK3, TROPN, LFT3, HEMDF, NH33, ETOH4 #### [facility] [address] [place] [address] CO2 [Moles/Vol] 18 mmol/L Low 22-30 [facility] Comment on above: Performed By: #### B MP3, CK3, TROPN, LFT3, HEMDF, NH33, ETOH4 #### [facility] [address] [place] [address] Creatinine [Mass/Vol] 0.67 mg/dL Normal 0.52-1.25 [facility] Comment on above: Performed By: #### B MP3, CK3, TROPN, LFT3, HEMDF, NH33, ETOH4 #### [facility] [address] [place] [address] GFR/1.73 sq M.predicted among blacks MDRD (S/P/Bld) [Vol rate/Area] mL/min/{1.73_m2} Normal >60 [facility] Comment on above: Performed By: #### B MP3, CK3, TROPN, LFT3, HEMDF, NH33, ETOH4 #### [facility] [address] [place] [address] GFR/1.73 sq M.predicted among non-blacks MDRD (S/P/Bld) [Vol rate/Area] 89.4 mL/min/{1.73_m2} Normal >60 [facility] Comment on above: Result Comment: KDIG O guidelines provide the following GFR categories: Stage GFR(ml/min/1.73 m2) Terms G1 >=90 Normal or high G2 60-89 Mildly decreased* G3a 45-59 Mildly to moderately decreased G3b 30-44 Moderately to severely decreased G4 15-29 Severely decreased G5 <15 Kidney failure *Relative to young adult level. In the absence of evidence of kidney damage, neither GFR category G1 nor G2 fulfill the criteria for CKD. The CKD-EPI equation is validated in individuals 18 years of age and older. Currently the best equation for estimating glomerular filtration rate (GFR) from serum creatinine in children is the Bedside Robison equation. It is less accurate in patients with extremes of muscle mass, restriction of dietary protein, ingestion of creatine, extra-renal metabolism of creatinine, or treatment with medications that affect renal tubular creatinine secretion. Performed By: #### B MP3, CK3, TROPN, LFT3, HEMDF, NH33, ETOH4 #### [facility] [address] [place] [address] Protein [Mass/Vol] 7.9 g/dL Normal 6.3-8.2 [facility] Comment on above: Performed By: #### B MP3, CK3, TROPN, LFT3, HEMDF, NH33, ETOH4 #### [facility] [address] [place] [address] Chloride [Moles/Vol] 112 mmol/L High 98-107 [facility] Comment on above: Performed By: #### B MP3, CK3, TROPN, LFT3, HEMDF, NH33, ETOH4 #### [facility] [address] [place] [address] Potassium [Moles/Vol] 3.8 mmol/L Normal 3.5-5.1 [facility] Comment on above: Performed By: #### B MP3, CK3, TROPN, LFT3, HEMDF, NH33, ETOH4 #### [facility] [address] [place] [address] Sodium [Moles/Vol] 145 mmol/L Normal 135-145 [facility] Comment on above: Performed By: #### B MP3, CK3, TROPN, LFT3, HEMDF, NH33, ETOH4 #### [facility] [address] [place] [address] Albumin [Mass/Vol] 4.5 g/dL Normal 3.5-5.0 [facility] Comment on above: Performed By: #### B MP3, CK3, TROPN, LFT3, HEMDF, NH33, ETOH4 #### [facility] [address] [place] [address] Ethanol Serum/Plasmaon 11-07 Ethanol-Serum/Plasma 0.348 g/dL Critically high 0.000-0.01 0 [facility] Comment on above: Result Comment: NOTE : This result is for medical treatment only. Analysis performed using non-forensic procedures. Performed By: #### B MP3, CK3, TROPN, LFT3, HEMDF, NH33, ETOH4 #### [facility] [address] [place] [address] Hemogram w/ Autodiffon 11-07 Abs Baso Cnt 0.1 10*3/uL Normal 0.0-0.2 [facility] Comment on above: Performed By: #### B MP3, CK3, TROPN, LFT3, HEMDF, NH33, ETOH4 #### [facility] [address] [place] [address] Abs Neutrophile Cnt 7.5 10*3/uL High 1.8-7.0 [facility] Comment on above: Performed By: #### B MP3, CK3, TROPN, LFT3, HEMDF, NH33, ETOH4 #### [facility] [address] [place] [address] Basophils/100 WBC (Bld) 1.1 % Normal 0.0-2.0 [facility] Comment on above: Performed By: #### B MP3, CK3, TROPN, LFT3, HEMDF, NH33, ETOH4 #### [facility] [address] [place] [address] Eosinophils (Bld) [#/Vol] 0.1 10*3/uL Normal 0.0-0.5 [facility] Comment on above: Performed By: #### B MP3, CK3, TROPN, LFT3, HEMDF, NH33, ETOH4 #### [facility] [address] [place] [address] Eosinophils/100 WBC (Bld) 0.5 % Low 1.0-6.0 [facility] Comment on above: Performed By: #### B MP3, CK3, TROPN, LFT3, HEMDF, NH33, ETOH4 #### [facility] [address] [place] [address] Erythrocyte distribution width (RBC) [Ratio] 15.4 % High 11.5-14.5 [facility] Comment on above: Performed By: #### B MP3, CK3, TROPN, LFT3, HEMDF, NH33, ETOH4 #### [facility] [address] [place] [address] Granulocytes/100 WBC (Bld) 72.5 % Normal 40.0-80.0 [facility] Comment on above: Performed By: #### B MP3, CK3, TROPN, LFT3, HEMDF, NH33, ETOH4 #### [facility] [address] [place] [address] Hematocrit (Bld) [Volume fraction] 48.5 % High 35.0-47.0 [facility] Comment on above: Performed By: #### B MP3, CK3, TROPN, LFT3, HEMDF, NH33, ETOH4 #### [facility] [address] [place] [address] Hemoglobin (Bld) [Mass/Vol] 16.1 g/dL High 11.7-16.0 [facility] Comment on above: Performed By: #### B MP3, CK3, TROPN, LFT3, HEMDF, NH33, ETOH4 #### [facility] [address] [place] [address] Lymphocytes (Bld) [#/Vol] 2.4 10*3/uL Normal 1.0-4.3 [facility] Comment on above: Performed By: #### B MP3, CK3, TROPN, LFT3, HEMDF, NH33, ETOH4 #### [facility] [address] [place] [address] Lymphocytes/100 WBC (Bld) 22.6 % Normal 20.0-40.0 [facility] Comment on above: Performed By: #### B MP3, CK3, TROPN, LFT3, HEMDF, NH33, ETOH4 #### [facility] [address] [place] [address] MCH (RBC) [Entitic mass] 33.5 pg Normal 26.0-34.0 [facility] Comment on above: Performed By: #### B MP3, CK3, TROPN, LFT3, HEMDF, NH33, ETOH4 #### [facility] [address] [place] [address] MCHC 33.2 % Normal 32.0-36.0 [facility] Comment on above: Performed By: #### B MP3, CK3, TROPN, LFT3, HEMDF, NH33, ETOH4 #### [facility] [address] [place] [address] MCV (RBC) [Entitic vol] 100.9 fL High 79.0-98.0 [facility] Comment on above: Performed By: #### B MP3, CK3, TROPN, LFT3, HEMDF, NH33, ETOH4 #### [facility] [address] [place] [address] Monocytes (Bld) [#/Vol] 0.3 10*3/uL Normal 0.0-0.8 [facility] Comment on above: Performed By: #### B MP3, CK3, TROPN, LFT3, HEMDF, NH33, ETOH4 #### [facility] [address] [place] [address] Monocytes/100 WBC (Bld) 3.3 % Normal 2.0-10.0 [facility] Comment on above: Performed By: #### B MP3, CK3, TROPN, LFT3, HEMDF, NH33, ETOH4 #### [facility] [address] [place] [address] Platelet mean volume (Bld) [Entitic vol] 7.8 fL Normal 7.4-10.4 [facility] Comment on above: Performed By: #### B MP3, CK3, TROPN, LFT3, HEMDF, NH33, ETOH4 #### [facility] [address] [place] [address] Platelets (Bld) [#/Vol] 350 10*3/uL Normal 140-440 [facility] Comment on above: Performed By: #### B MP3, CK3, TROPN, LFT3, HEMDF, NH33, ETOH4 #### [facility] [address] [place] [address] RBC (Bld) [#/Vol] 4.81 10*6/uL Normal 3.80-5.20 [facility] Comment on above: Performed By: #### B MP3, CK3, TROPN, LFT3, HEMDF, NH33, ETOH4 #### [facility] [address] [place] [address] WBC (Bld) [#/Vol] 10.4 10*3/uL Normal 3.6-10.7 [facility] Comment on above: Performed By: #### B MP3, CK3, TROPN, LFT3, HEMDF, NH33, ETOH4 #### [facility] [address] [place] [address] Magnesiumon 11-07-2020 Magnesium [Mass/Vol] 1.7 mg/dL Normal 1.6-2.3 [facility] Comment on above: Performed By: #### B MP3, CK3, TROPN, LFT3, HEMDF, NH33, ETOH4 #### [facility] [address] [place] [address] Basic Metabolic Panelon 10-14 Calcium [Mass/Vol] 9.6 mg/dL Normal 8.4-10.4 [facility] Comment on above: Performed By: #### B MP3 #### [facility] [address] [place] [address] Anion Gap 6 Normal [facility] Comment on above: Performed By: #### B MP3 #### [facility] [address] [place], [place] CO2 [Moles/Vol] 23 mmol/L Normal 22-30 [facility] Comment on above: Performed By: #### B MP3 #### [facility] [address] [place], [place] Creatinine [Mass/Vol] 0.45 mg/dL Low 0.52-1.25 [facility] Comment on above: Performed By: #### B MP3 #### [facility] [address] [place], [place] eGFR OTHER > 90.0 Normal >60 [facility] Comment on above: Result Comment: KDIG O guidelines provide the following GFR categories: Stage GFR(ml/min/1.73 m2) Terms G1 >=90 Normal or high G2 60-89 Mildly decreased* G3a 45-59 Mildly to moderately decreased G3b 30-44 Moderately to severely decreased G4 15-29 Severely decreased G5 <15 Kidney failure *Relative to young adult level. In the absence of evidence of kidney damage, neither GFR category G1 nor G2 fulfill the criteria for CKD. The CKD-EPI equation is validated in individuals 18 years of age and older. Currently the best equation for estimating glomerular filtration rate (GFR) from serum creatinine in children is the Bedside Robison equation. It is less accurate in patients with extremes of muscle mass, restriction of dietary protein, ingestion of creatine, extra-renal metabolism of creatinine, or treatment with medications that affect renal tubular creatinine secretion. Performed By: #### B MP3 #### [facility] [address] [place], [place] GFR/1.73 sq M.predicted among blacks MDRD (S/P/Bld) [Vol rate/Area] mL/min/{1.73_m2} Normal >60 [facility] Comment on above: Performed By: #### B MP3 #### [facility] [address] [place], [place] Glucose [Mass/Vol] 91 mg/dL Normal 70-100 [facility] Comment on above: Performed By: #### B MP3 #### [facility] [address] [place], [place] Urea nitrogen [Mass/Vol] 16 mg/dL Normal 7-20 [facility] Comment on above: Performed By: #### B MP3 #### [facility] [address] [place], [place] Chloride [Moles/Vol] 104 mmol/L Normal 98-107 [facility] Comment on above: Performed By: #### B MP3 #### [facility] [address] [place], [place] Potassium [Moles/Vol] 4.5 mmol/L Normal 3.5-5.1 [facility] Comment on above: Performed By: #### B MP3 #### [facility] [address] [place], [place] Sodium [Moles/Vol] 134 mmol/L Low 135-145 [facility] Comment on above: Performed By: #### B MP3 #### [facility] [address] [place], [place] Anion gap [Moles/Vol] 6 mmol/L [place], [place] Calcium [Mass/Vol] 9.6 mg/dL 8.4 - 10. 4 mg/dL [place], [place] Chloride [Moles/Vol] 104 mmol/L 98 - 107 mmol/L [place] CO2 [Moles/Vol] 23 mmol/L 22 - 30 mmol/L [place] Creatinine [Mass/Vol] 0.45 mg/dL Low 0.52 - 1.25 mg/dL [place] EGFR IF NonAfrican [place]an >90.0 >60 mL/min [place] Comment on above: KDIGO guidelines pro vide the following GFR categories: Stage GFR(ml/min/1.73 m2) Terms G1 >=90 Normal or high G2 60-89 Mildly decreased* G3a 45-59 Mildly to moderately decreased G3b 30-44 Moderately to severely decreased G4 15-29 Severely decreased G5 <15 Kidney failure *Relative to young adult level. In the absence of evidence of kidney damage, neither GFR category G1 nor G2 fulfill the criteria for CKD. The CKD-EPI equation is validated in individuals 18 years of age and older. Currently the best equation for estimating glomerular filtration rate (GFR) from serum creatinine in children is the Bedside Robison equation. It is less accurate in patients with extremes of muscle mass, restriction of dietary protein, ingestion of creatine, extra-renal metabolism of creatinine, or treatment with medications that affect renal tubular creatinine secretion. GFR/1.73 sq M predicted among blacks MDRD (S/P/Bld) [Vol rate/Area] mL/min/{1.73_m2} >60 mL/min [place] Glucose [Mass/Vol] 91 mg/dL 70 - 100 mg/dL [place], [place] Interpretation and review of laboratory results Abnormal [place] Potassium [Moles/Vol] 4.5 mmol/L 3.5 - 5.1 mmol/L [place] Sodium [Moles/Vol] 134 mmol/L Low 135 - 145 mmol/L [place] Urea nitrogen [Mass/Vol] 16 mg/dL 7 - 20 mg/dL [place] Test Performed by [id number] [place] [address] Basic Metabolic Panelon - Anion Gap 8 Normal [facility] Comment on above: Performed By: #### E TOH4 #### [address] Calcium [Mass/Vol] 9.3 mg/dL Normal 8.4-10.4 [facility] Comment on above: Performed By: #### E TOH4 #### [address] CO2 [Moles/Vol] 24 mmol/L Normal 22-30 [facility] Comment on above: Performed By: #### E TOH4 #### [address] Creatinine [Mass/Vol] 0.51 mg/dL Low 0.52-1.25 [facility] Comment on above: Performed By: #### E TOH4 #### [address] eGFR OTHER > 90.0 Normal >60 [facility] Comment on above: Result Comment: KDIG O guidelines provide the following GFR categories: Stage GFR(ml/min/1.73 m2) Terms G1 >=90 Normal or high G2 60-89 Mildly decreased* G3a 45-59 Mildly to moderately decreased G3b 30-44 Moderately to severely decreased G4 15-29 Severely decreased G5 <15 Kidney failure *Relative to young adult level. In the absence of evidence of kidney damage, neither GFR category G1 nor G2 fulfill the criteria for CKD. The CKD-EPI equation is validated in individuals 18 years of age and older. Currently the best equation for estimating glomerular filtration rate (GFR) from serum creatinine in children is the Bedside Robison equation. It is less accurate in patients with extremes of muscle mass, restriction of dietary protein, ingestion of creatine, extra-renal metabolism of creatinine, or treatment with medications that affect renal tubular creatinine secretion. Performed By: #### E TOH4 #### [place] [address] [place], [place] GFR/1.73 sq M.predicted among blacks MDRD (S/P/Bld) [Vol rate/Area] mL/min/{1.73_m2} Normal >60 [facility] Comment on above: Performed By: #### E TOH4 #### [place] [address] [place], [place] Glucose [Mass/Vol] 97 mg/dL Normal 70-100 [facility] Comment on above: Performed By: #### E TOH4 #### [address] [place], [place] Urea nitrogen [Mass/Vol] 13 mg/dL Normal 7-20 [facility] Comment on above: Performed By: #### E TOH4 #### [address] [place], [place] Chloride [Moles/Vol] 102 mmol/L Normal 98-107 [facility] Comment on above: Performed By: #### E TOH4 #### [address] [place], [place] Potassium [Moles/Vol] 4.5 mmol/L Normal 3.5-5.1 [facility] Comment on above: Performed By: #### E TOH4 #### [address] [place] Sodium [Moles/Vol] 133 mmol/L Low 135-145 [facility] Comment on above: Performed By: #### E TOFrance #### [facility] [address] [place], [place] Anion gap [Moles/Vol] 8 mmol/L [place], [place] Calcium [Mass/Vol] 9.3 mg/dL 8.4 - 10. 4 mg/dL [place], [place] Chloride [Moles/Vol] 102 mmol/L 98 - 107 mmol/L [place] CO2 [Moles/Vol] 24 mmol/L 22 - 30 mmol/L [place] Creatinine [Mass/Vol] 0.51 mg/dL Low 0.52 - 1.25 mg/dL [place] EGFR IF NonAfrican [place]rean >90.0 >60 mL/min [place] Comment on above: KDIGO guidelines pro vide the following GFR categories: Stage GFR(ml/min/1.73 m2) Terms G1 >=90 Normal or high G2 60-89 Mildly decreased* G3a 45-59 Mildly to moderately decreased G3b 30-44 Moderately to severely decreased G4 15-29 Severely decreased G5 <15 Kidney failure *Relative to young adult level. In the absence of evidence of kidney damage, neither GFR category G1 nor G2 fulfill the criteria for CKD. The CKD-EPI equation is validated in individuals 18 years of age and older. Currently the best equation for estimating glomerular filtration rate (GFR) from serum creatinine in children is the Bedside Robison equation. It is less accurate in patients with extremes of muscle mass, restriction of dietary protein, ingestion of creatine, extra-renal metabolism of creatinine, or treatment with medications that affect renal tubular creatinine secretion. GFR/1.73 sq M predicted among blacks MDRD (S/P/Bld) [Vol rate/Area] mL/min/{1.73_m2} >60 mL/min [place] Glucose [Mass/Vol] 97 mg/dL 70 - 100 mg/dL [place], [place] Interpretation and review of laboratory results Abnormal [place] Potassium [Moles/Vol] 4.5 mmol/L 3.5 - 5.1 mmol/L [place] Sodium [Moles/Vol] 133 mmol/L Low 135 - 145 mmol/L [place] Urea nitrogen [Mass/Vol] 13 mg/dL 7 - 20 mg/dL [place] Test Performed by [facility], [address] [place] [id number] [place], [place] Basic Metabolic Panelon 01-0 Calcium [Mass/Vol] 10.3 mg/dL Normal 8.4-10.4 [facility] Comment on above: Performed By: #### M G3, PHOS3, HEMDF, BMP3M #### [address] [address] [place], [place] Anion Gap 9 Normal [facility] Comment on above: Performed By: #### M G3, PHOS3, HEMDF, BMP3M #### [address] [address] [place] CO2 [Moles/Vol] 26 mmol/L Normal 22-30 [facility] Comment on above: Performed By: #### M G3, PHOS3, HEMDF, BMP3M #### [address] Creatinine [Mass/Vol] 0.36 mg/dL Low 0.52-1.25 [facility] Comment on above: Performed By: #### M G3, PHOS3, HEMDF, BMP3M #### [address] [address] [place], [place] eGFR OTHER > 90.0 Normal >60 [facility] Comment on above: Result Comment: KDIG O guidelines provide the following GFR categories: Stage GFR(ml/min/1.73 m2) Terms G1 >=90 Normal or high G2 60-89 Mildly decreased* G3a 45-59 Mildly to moderately decreased G3b 30-44 Moderately to severely decreased G4 15-29 Severely decreased G5 <15 Kidney failure *Relative to young adult level. In the absence of evidence of kidney damage, neither GFR category G1 nor G2 fulfill the criteria for CKD. The CKD-EPI equation is validated in individuals 18 years of age and older. Currently the best equation for estimating glomerular filtration rate (GFR) from serum creatinine in children is the Bedside Robison equation. It is less accurate in patients with extremes of muscle mass, restriction of dietary protein, ingestion of creatine, extra-renal metabolism of creatinine, or treatment with medications that affect renal tubular creatinine secretion. Performed By: #### M G3, PHOS3, HEMDF, BMP3M #### [facility] [address] [place], [place] GFR/1.73 sq M.predicted among blacks MDRD (S/P/Bld) [Vol rate/Area] mL/min/{1.73_m2} Normal >60 [facility] Comment on above: Performed By: #### M G3, PHOS3, HEMDF, BMP3M #### [address] [place] Glucose [Mass/Vol] 126 mg/dL High 70-100 [facility] Comment on above: Performed By: #### Ruben G3, PHOS3, HEMDF, BMP3M #### [address] [place] Urea nitrogen [Mass/Vol] 12 mg/dL Normal 7-20 [facility] Comment on above: Performed By: #### Ruben G3, PHOS3, HEMDF, BMP3M #### [address] [place] Chloride [Moles/Vol] 94 mmol/L Low 98-107 [facility] Comment on above: Performed By: #### M G3, PHOS3, HEMDF, BMP3M #### [address] [place] Potassium [Moles/Vol] 3.8 mmol/L Normal 3.5-5.1 [facility] Comment on above: Performed By: #### M G3, PHOS3, HEMDF, BMP3M #### [address] [place] Sodium [Moles/Vol] 129 mmol/L Low 135-145 [facility] Comment on above: Performed By: #### M G3, PHOS3, HEMDF, BMP3M #### [address] [place] [address] Anion gap [Moles/Vol] 9 mmol/L [place] Calcium [Mass/Vol] 10.3 mg/dL 8.4 - 10. 4 mg/dL [place] Chloride [Moles/Vol] 94 mmol/L Low 98 - 107 mmol/L [place] CO2 [Moles/Vol] 26 mmol/L 22 - 30 mmol/L [place] Creatinine [Mass/Vol] 0.36 mg/dL Low 0.52 - 1.25 mg/dL [place] EGFR IF NonAfrican [place]ritrean >90.0 >60 mL/min [place] Comment on above: KDIGO guidelines pro vide the following GFR categories: Stage GFR(ml/min/1.73 m2) Terms G1 >=90 Normal or high G2 60-89 Mildly decreased* G3a 45-59 Mildly to moderately decreased G3b 30-44 Moderately to severely decreased G4 15-29 Severely decreased G5 <15 Kidney failure *Relative to young adult level. In the absence of evidence of kidney damage, neither GFR category G1 nor G2 fulfill the criteria for CKD. The CKD-EPI equation is validated in individuals 18 years of age and older. Currently the best equation for estimating glomerular filtration rate (GFR) from serum creatinine in children is the Bedside Robison equation. It is less accurate in patients with extremes of muscle mass, restriction of dietary protein, ingestion of creatine, extra-renal metabolism of creatinine, or treatment with medications that affect renal tubular creatinine secretion. GFR/1.73 sq M predicted among blacks MDRD (S/P/Bld) [Vol rate/Area] mL/min/{1.73_m2} >60 mL/min [place] Glucose [Mass/Vol] 126 mg/dL High 70 - 100 mg/dL [place] Interpretation and review of laboratory results Abnormal [place] Potassium [Moles/Vol] 3.8 mmol/L 3.5 - 5.1 mmol/L [place] Sodium [Moles/Vol] 129 mmol/L Low 135 - 145 mmol/L [place] Urea nitrogen [Mass/Vol] 12 mg/dL 7 - 20 mg/dL [place] Magnesiumon 10-22-2020 Magnesium [Mass/Vol] 1.6 mg/dL Normal 1.6-2.3 [facility] Comment on above: Performed By: #### M G3, PHOS3, HEMDF, BMP3M #### [address] [address] Magnesium [Mass/Vol] 1.6 mg/dL 1.6 - 2.3 mg/dL [place] Otheron 10-22-2020 Test Performed by [facility], [address] [place] [address] [place] BASIC METABOLIC PANELon Anion gap [Moles/Vol] 5 mmol/L [place] Calcium [Mass/Vol] 8.9 mg/dL 8.4 - 10. 4 mg/dL [place] Chloride [Moles/Vol] 98 mmol/L 98 - 107 mmol/L [place] CO2 [Moles/Vol] 26 mmol/L 22 - 30 mmol/L [place] Creatinine [Mass/Vol] 0.34 mg/dL Low 0.52 - 1.25 mg/dL [place] EGFR IF NonAfrican [place]rean >90.0 >60 mL/min [place] Comment on above: KDIGO guidelines pro vide the following GFR categories: Stage GFR(ml/min/1.73 m2) Terms G1 >=90 Normal or high G2 60-89 Mildly decreased* G3a 45-59 Mildly to moderately decreased G3b 30-44 Moderately to severely decreased G4 15-29 Severely decreased G5 <15 Kidney failure *Relative to young adult level. In the absence of evidence of kidney damage, neither GFR category G1 nor G2 fulfill the criteria for CKD. The CKD-EPI equation is validated in individuals 18 years of age and older. Currently the best equation for estimating glomerular filtration rate (GFR) from serum creatinine in children is the Bedside Robison equation. It is less accurate in patients with extremes of muscle mass, restriction of dietary protein, ingestion of creatine, extra-renal metabolism of creatinine, or treatment with medications that affect renal tubular creatinine secretion. GFR/1.73 sq M predicted among blacks MDRD (S/P/Bld) [Vol rate/Area] mL/min/{1.73_m2} >60 mL/min [place] Glucose [Mass/Vol] 105 mg/dL High 70 - 100 mg/dL [place] Potassium [Moles/Vol] 3.8 mmol/L 3.5 - 5.1 mmol/L [place] Sodium [Moles/Vol] 129 mmol/L Low 135 - 145 mmol/L [place] Urea nitrogen [Mass/Vol] 13 mg/dL 7 - 20 mg/dL [place] Basic Metabolic Panelon 01-0 Calcium [Mass/Vol] 8.9 mg/dL Normal 8.4-10.4 [facility] Comment on above: Performed By: #### B MP3 #### [facility] [address] [place], [place] Glucose [Mass/Vol] 105 mg/dL High 70-100 [facility] Comment on above: Performed By: #### B MP3 #### [facility] [address] [place] Anion Gap 5 Normal [facility] Comment on above: Performed By: #### B MP3 #### [facility] [address] [place] CO2 [Moles/Vol] 26 mmol/L Normal 22-30 [facility] Comment on above: Performed By: #### B MP3 #### [facility] [address] [place] Creatinine [Mass/Vol] 0.34 mg/dL Low 0.52-1.25 [facility] Comment on above: Performed By: #### B MP3 #### [facility] [address] [place] eGFR OTHER > 90.0 Normal >60 [facility] Comment on above: Result Comment: KDIG O guidelines provide the following GFR categories: Stage GFR(ml/min/1.73 m2) Terms G1 >=90 Normal or high G2 60-89 Mildly decreased* G3a 45-59 Mildly to moderately decreased G3b 30-44 Moderately to severely decreased G4 15-29 Severely decreased G5 <15 Kidney failure *Relative to young adult level. In the absence of evidence of kidney damage, neither GFR category G1 nor G2 fulfill the criteria for CKD. The CKD-EPI equation is validated in individuals 18 years of age and older. Currently the best equation for estimating glomerular filtration rate (GFR) from serum creatinine in children is the Bedside Robison equation. It is less accurate in patients with extremes of muscle mass, restriction of dietary protein, ingestion of creatine, extra-renal metabolism of creatinine, or treatment with medications that affect renal tubular creatinine secretion. Performed By: #### B MP3 #### [address] [place] GFR/1.73 sq M.predicted among blacks MDRD (S/P/Bld) [Vol rate/Area] mL/min/{1.73_m2} Normal >60 [facility] Comment on above: Performed By: #### B MP3 #### [address] [address] [place], [place] Urea nitrogen [Mass/Vol] 13 mg/dL Normal 7-20 [facility] Comment on above: Performed By: #### B MP3 #### [address] [address] [place] Chloride [Moles/Vol] 98 mmol/L Normal 98-107 [facility] Comment on above: Performed By: #### B MP3 #### [address] [address] [place] [address] Potassium [Moles/Vol] 3.8 mmol/L Normal 3.5-5.1 [facility] Comment on above: Performed By: #### B MP3 #### [address] Sodium [Moles/Vol] 129 mmol/L Low 135-145 [facility] Comment on above: Performed By: #### B MP3 #### [address] CBC auto differentialon 01-0 Absolute Baso # 0.1 10*3/uL 0 - 0.2 10*3/uL [facility], [place] Absolute Neut # 4.4 10*3/uL 1.8 - 7 10*3/uL [place] Basophils/100 WBC (Bld) 0.9 % 0 - 2 % [place] Eosinophils (Bld) [#/Vol] 0.0 10*3/uL 0 - 0.5 10*3/uL [place] Eosinophils/100 WBC (Bld) 0.6 % Low 1 - 6 % [place] Erythrocyte distribution width (RBC) [Ratio] 14.2 % 11.5 - 14.5 % [place] Granulocytes/100 WBC (Bld) 72.3 % 40 - 80 % [place] Hematocrit (Bld) [Volume fraction] 38.1 % 35 - 47 % [place] Hemoglobin (Bld) [Mass/Vol] 12.9 g/dL 11.7 - 16 g/dL [place] Interpretation and review of laboratory results Abnormal [place] Lymphocytes (Bld) [#/Vol] 1.1 10*3/uL 1 - 4.3 10*3/uL [place] Lymphocytes/100 WBC (Bld) 17.7 % Low 20 - 40 % [place] MCH (RBC) [Entitic mass] 33.5 pg 26 - 34 pg [place] MCHC (RBC) [Mass/Vol] 33.9 % 32 - 36 % [place] MCV (RBC) [Entitic vol] 98.8 fL High 79 - 98 fL [place] Monocytes (Bld) [#/Vol] 0.5 10*3/uL 0 - 0.8 10*3/uL [place] Monocytes/100 WBC (Bld) 8.5 % 2 - 10 % [place] Platelet mean volume (Bld) [Entitic vol] 8.8 fL 7.4 - 10.4 fL [place] Platelets (Bld) [#/Vol] 147 10*3/uL 140 - 440 10*3/uL [place] RBC (Bld) [#/Vol] 3.86 10*6/uL 3.8 - 5.2 10*6/uL [place] WBC (Bld) [#/Vol] 6.1 10*3/uL 3.6 - 10.7 10*3/uL [place] Test Performed by [address] [address] [place], [place] CT HEAD WO CONTRASTon 2020 Patient Name: JAZMIN JOHNSON Computed Tomography ACCESSION EXAM DATE/TIME PROCEDURE ORDERING PROVIDER [id number] 10/21/2020 04:[address] Head or Brain w/o MD CL, JAJA Contrast CPT code 30081 Reason For Exam (CT Head or Brain w/o Contrast) head bleed Report CT HEAD: CLINICAL INDICATION: Follow-up for trauma TECHNIQUE: Transaxial CT sequence performed through the head with 3 mm reconstruction. Sagittal and Coronal reconstruction images included. Dose reduction employed with automated exposure control. COMPARISON: One day ago FINDINGS: High attenuation hemorrhagic collections are noted along the periphery of the posterior base of the right and left temporal lobe, likely subcortical intraparenchymal hemorrhagic contusions. There is minimal surrounding low-attenuation edema without change. No other hemorrhagic collection is identified throughout the cerebrum or cerebellum. Calcification is noted within the basal ganglia, representing normal variation region. Ventricles and sulci are enlarged without high attenuation extra-axial collection. No other change is noted. IMPRESSION: Subcortical hemorrhagic contusions at the posterior base of the right and left temporal lobe without change from one day ago. Diminished cerebral volume. Report Dictated on Workstation: [id number] --- Final --- Dictated: 10/21/2020 4:58 am Dictating Physician: MD GUZMAN JEFFREY Signed Date and Time: 10/21/2020 5:00 am Signed by: MD GUZMAN JEFFREY Transcribed Date and Time: 10/21/2020 4:58 [place], [place], [facility] Incoming Radiology Results From [facility] - 10/21/2020 5:01 AM EST Patient Name: JAZMIN JOHNSON Computed Tomography ACCESSION EXAM DATE/TIME PROCEDURE ORDERING PROVIDER [id number] 10/21/2020 04:[address] Head or Brain w/o MD CL, JAJA Contrast CPT code 28216 Reason For Exam (CT Head or Brain w/o Contrast) head bleed Report CT HEAD: CLINICAL INDICATION: Follow-up for trauma TECHNIQUE: Transaxial CT sequence performed through the head with 3 mm reconstruction. Sagittal and Coronal reconstruction images included. Dose reduction employed with automated exposure control. COMPARISON: One day ago FINDINGS: High attenuation hemorrhagic collections are noted along the periphery of the posterior base of the right and left temporal lobe, likely subcortical intraparenchymal hemorrhagic contusions. There is minimal surrounding low-attenuation edema without change. No other hemorrhagic collection is identified throughout the cerebrum or cerebellum. Calcification is noted within the basal ganglia, representing normal variation region. Ventricles and sulci are enlarged without high attenuation extra-axial collection. No other change is noted. IMPRESSION: Subcortical hemorrhagic contusions at the posterior base of the right and left temporal lobe without change from one day ago. Diminished cerebral volume. Report Dictated on Workstation: [facility] --- Final --- Dictated: 10/21/2020 4:58 am Dictating Physician: MD GUZMAN JEFFREY Signed Date and Time: 10/21/2020 5:00 am Signed by: MD GUZMAN JEFFREY Transcribed Date and Time: 10/21/2020 4:58 [place] CT Head or Brain w/o Contras ton 10-21-2020 CT Head or Brain w/o Contrast [id number] ACCESSION EXAM DATE/TIME PROCEDURE ORDERING PROVIDER [id number] 10/21/2020 04:[address] Head or Brain w/o MD CL, JAJA Contrast CPT code 36280 Reason For Exam (CT Head or Brain w/o Contrast) head bleed Report CT HEAD: CLINICAL INDICATION: Follow-up for trauma TECHNIQUE: Transaxial CT sequence performed through the head with 3 mm reconstruction. Sagittal and Coronal reconstruction images included. Dose reduction employed with automated exposure control. COMPARISON: One day ago FINDINGS: High attenuation hemorrhagic collections are noted along the periphery of the posterior base of the right and left temporal lobe, likely subcortical intraparenchymal hemorrhagic contusions. There is minimal surrounding low-attenuation edema without change. No other hemorrhagic collection is identified throughout the cerebrum or cerebellum. Calcification is noted within the basal ganglia, representing normal variation region. Ventricles and sulci are enlarged without high attenuation extra-axial collection. No other change is noted. IMPRESSION: Subcortical hemorrhagic contusions at the posterior base of the right and left temporal lobe without change from one day ago. Diminished cerebral volume. Report Dictated on Workstation: [id number] [employer] Final Dictated: 10/21/2020 4:58 am Dictating Physician: MD GUZMAN JEFFREY Signed Date and Time: 10/21/2020 5:00 am Signed by: MD GUZMAN JEFFREY Transcribed Date and Time: 10/21/2020 4:58 Normal [facility] EKG 12 Lead - Chest Painon 0 10-21-2020 [facility] Test Date: 2020-10-19 Pat Name: Jazmin Johnson Department: Room: 444 Gender: F [employer]: MONIKA : 1950 Requested By: ALEJANDRO AGUILAR Order Number: [id number] [place] : Rd Rankin Measurements Intervals [place] Rate: 112 P: 61 [place]: 128 QRS: -33 QRSD: 90 T: 70 QT: 344 QTc: 470 Interpretive Statements SINUS TACHYCARDIA LEFT AXIS DEVIATION BASELINE WANDER IN LEAD(S) V1,V3,V5 No previous ECG available for comparison Electronically Signed On 10-21-2020 7:09:51 [facility] [place] Incoming [facility] 10/21/2020 7:10 AM EST [facility] Test Date: 2020-10-19 Pat Name: Jazmin Heidy Department: Room: 444 Gender: F [employer] Officer: MONIKA : 1950 Requested By: ALEJANDRO AGUILAR Order Number: [id number] [place] JONY Young Intervals [place]iat Rate: 112 P: 61 [place]: 128 QRS: -33 QRSD: 90 T: 70 QT: 344 QTc: 470 Interpretive Statements SINUS TACHYCARDIA LEFT AXIS DEVIATION BASELINE WANDER IN LEAD(S) V1,V3,V5 No previous ECG available for comparison Electronically Signed On 10-21-2020 7:09:51 EST by [facility], [place] Hemogram w/ Autodiffon 10-21 Abs Baso Cnt 0.1 10*3/uL Normal 0.0-0.2 [facility] Comment on above: Performed By: #### B MP3 #### [facility] [address] [place], [place] Abs Neutrophile Cnt 4.4 10*3/uL Normal 1.8-7.0 [facility] Comment on above: Performed By: #### B MP3 #### [facility] [address] [place] Basophils/100 WBC (Bld) 0.9 % Normal 0.0-2.0 [facility] Comment on above: Performed By: #### B MP3 #### [address] [place] Eosinophils (Bld) [#/Vol] 0.0 10*3/uL Normal 0.0-0.5 [facility] Comment on above: Performed By: #### B MP3 #### [address] [place] Eosinophils/100 WBC (Bld) 0.6 % Low 1.0-6.0 [facility] Comment on above: Performed By: #### B MP3 #### [address] [place] Erythrocyte distribution width (RBC) [Ratio] 14.2 % Normal 11.5-14.5 [facility] Comment on above: Performed By: #### B MP3 #### [facility] [address] [place] Granulocytes/100 WBC (Bld) 72.3 % Normal 40.0-80.0 [facility] Comment on above: Performed By: #### B MP3 #### [address] [place] Hematocrit (Bld) [Volume fraction] 38.1 % Normal 35.0-47.0 [facility] Comment on above: Performed By: #### B MP3 #### [address] [place] Hemoglobin (Bld) [Mass/Vol] 12.9 g/dL Normal 11.7-16.0 [facility] Comment on above: Performed By: #### B MP3 #### [facility] [address] [place] Lymphocytes (Bld) [#/Vol] 1.1 10*3/uL Normal 1.0-4.3 [facility] Comment on above: Performed By: #### B MP3 #### [facility] [address] [place] Lymphocytes/100 WBC (Bld) 17.7 % Low 20.0-40.0 [facility] Comment on above: Performed By: #### B MP3 #### [address] [place] MCH (RBC) [Entitic mass] 33.5 pg Normal 26.0-34.0 [facility] Comment on above: Performed By: #### B MP3 #### [address] [place] MCHC 33.9 % Normal 32.0-36.0 [facility] Comment on above: Performed By: #### B MP3 #### [address] [place] MCV (RBC) [Entitic vol] 98.8 fL High 79.0-98.0 [facility] Comment on above: Performed By: #### B MP3 #### [address] [place] Monocytes (Bld) [#/Vol] 0.5 10*3/uL Normal 0.0-0.8 [facility] Comment on above: Performed By: #### B MP3 #### [address] [place] Monocytes/100 WBC (Bld) 8.5 % Normal 2.0-10.0 [facility] Comment on above: Performed By: #### B MP3 #### [address] [place] Platelet mean volume (Bld) [Entitic vol] 8.8 fL Normal 7.4-10.4 [facility] Comment on above: Performed By: #### B MP3 #### [address] [place] Platelets (Bld) [#/Vol] 147 10*3/uL Normal 140-440 [facility] Comment on above: Performed By: #### B MP3 #### [address] [address] [place] RBC (Bld) [#/Vol] 3.86 10*6/uL Normal 3.80-5.20 [facility] Comment on above: Performed By: #### B MP3 #### [address] WBC (Bld) [#/Vol] 6.1 10*3/uL Normal 3.6-10.7 [facility] Comment on above: Performed By: #### B MP3 #### [address] [place] Magnesiumon 10-21-2020 Magnesium [Mass/Vol] 1.5 mg/dL Low 1.6-2.3 [facility] Comment on above: Performed By: #### B MP3 #### [address] Magnesium [Mass/Vol] 1.5 mg/dL Low 1.6 - 2.3 mg/dL [place] Otheron 10-21-2020 Interpretation and review of laboratory results Abnormal [place] Test Performed by [address] [address] [place] APTTon 10-20-2020 aPTT Coag (Bld) [Time] 22.9 s Normal 20.0-30.5 [facility] Comment on above: Result Comment: NOTE : The therapeutic time for Heparin anticoagulation, based on Xa activity inhibition, is an APTT of 46-80 seconds. Performed By: #### B MP3 #### [address] Basic Metabolic Panelon 01-0 Anion Gap 6 Normal [facility] Comment on above: Performed By: #### B MP3 #### [facility] [address] [place] Calcium [Mass/Vol] 7.7 mg/dL Low 8.4-10.4 [facility] Comment on above: Performed By: #### B MP3 #### [facility] [address] [place] CO2 [Moles/Vol] 26 mmol/L Normal 22-30 [facility] Comment on above: Performed By: #### B MP3 #### [facility] [address] [place], [place] Glucose [Mass/Vol] 91 mg/dL Normal 70-100 [facility] Comment on above: Performed By: #### B MP3 #### [facility] [address] [place], [place] Urea nitrogen [Mass/Vol] 13 mg/dL Normal 7-20 [facility] Comment on above: Performed By: #### B MP3 #### [facility] [address] [place], [place] Creatinine [Mass/Vol] 0.41 mg/dL Low 0.52-1.25 [facility] Comment on above: Performed By: #### B MP3 #### [facility] [address] [place], [place] eGFR OTHER > 90.0 Normal >60 [facility] Comment on above: Result Comment: KDIG O guidelines provide the following GFR categories: Stage GFR(ml/min/1.73 m2) Terms G1 >=90 Normal or high G2 60-89 Mildly decreased* G3a 45-59 Mildly to moderately decreased G3b 30-44 Moderately to severely decreased G4 15-29 Severely decreased G5 <15 Kidney failure *Relative to young adult level. In the absence of evidence of kidney damage, neither GFR category G1 nor G2 fulfill the criteria for CKD. The CKD-EPI equation is validated in individuals 18 years of age and older. Currently the best equation for estimating glomerular filtration rate (GFR) from serum creatinine in children is the Bedside Robison equation. It is less accurate in patients with extremes of muscle mass, restriction of dietary protein, ingestion of creatine, extra-renal metabolism of creatinine, or treatment with medications that affect renal tubular creatinine secretion. Performed By: #### B MP3 #### [facility] [address], [place] GFR/1.73 sq M.predicted among blacks MDRD (S/P/Bld) [Vol rate/Area] mL/min/{1.73_m2} Normal >60 [facility] Comment on above: Performed By: #### B MP3 #### [facility] [address], [place] Potassium [Moles/Vol] 3.3 mmol/L Low 3.5-5.1 [facility] Comment on above: Performed By: #### B MP3 #### [facility] [address] [place], [place] Chloride [Moles/Vol] 105 mmol/L Normal 98-107 [facility] Comment on above: Performed By: #### B MP3 #### [facility] [address] [place], [place] Sodium [Moles/Vol] 136 mmol/L Normal 135-145 [facility] Comment on above: Performed By: #### B MP3 #### [place] [address] [place], [place] Basic Metabolic Panel w/ Ref sandra to MGon 10-20-2020 Anion gap [Moles/Vol] 6 mmol/L [place], [place] Calcium [Mass/Vol] 7.7 mg/dL Low 8.4 - 10. 4 mg/dL [place], [place] Chloride [Moles/Vol] 105 mmol/L 98 - 107 mmol/L [place] CO2 [Moles/Vol] 26 mmol/L 22 - 30 mmol/L [place] Creatinine [Mass/Vol] 0.41 mg/dL Low 0.52 - 1.25 mg/dL [place] EGFR IF NonAfrican Eritrean >90.0 >60 mL/min [place] Comment on above: KDIGO guidelines pro vide the following GFR categories: Stage GFR(ml/min/1.73 m2) Terms G1 >=90 Normal or high G2 60-89 Mildly decreased* G3a 45-59 Mildly to moderately decreased G3b 30-44 Moderately to severely decreased G4 15-29 Severely decreased G5 <15 Kidney failure *Relative to young adult level. In the absence of evidence of kidney damage, neither GFR category G1 nor G2 fulfill the criteria for CKD. The CKD-EPI equation is validated in individuals 18 years of age and older. Currently the best equation for estimating glomerular filtration rate (GFR) from serum creatinine in children is the Bedside Robison equation. It is less accurate in patients with extremes of muscle mass, restriction of dietary protein, ingestion of creatine, extra-renal metabolism of creatinine, or treatment with medications that affect renal tubular creatinine secretion. GFR/1.73 sq M predicted among blacks MDRD (S/P/Bld) [Vol rate/Area] mL/min/{1.73_m2} >60 mL/min [place] Glucose [Mass/Vol] 91 mg/dL 70 - 100 mg/dL [place], [place] Potassium [Moles/Vol] 3.3 mmol/L Low 3.5 - 5.1 mmol/L [place] Sodium [Moles/Vol] 136 mmol/L 135 - 145 mmol/L [place] Urea nitrogen [Mass/Vol] 13 mg/dL 7 - 20 mg/dL [place] CBC auto differentialon Absolute Baso # 0.1 10*3/uL 0 - 0.2 10*3/uL [place] Absolute Neut # 6.8 10*3/uL 1.8 - 7 10*3/uL [place] Basophils/100 WBC (Bld) 0.9 % 0 - 2 % [place] Eosinophils (Bld) [#/Vol] 0.0 10*3/uL 0 - 0.5 10*3/uL [place] Eosinophils/100 WBC (Bld) 0.1 % Low 1 - 6 % [place] Erythrocyte distribution width (RBC) [Ratio] 14.8 % High 11.5 - 14.5 % [place] Granulocytes/100 WBC (Bld) 79.5 % 40 - 80 % [place] Hematocrit (Bld) [Volume fraction] 33.3 % Low 35 - 47 % [place] Hemoglobin (Bld) [Mass/Vol] 11.6 g/dL Low 11.7 - 16 g/dL [place] Interpretation and review of laboratory results Abnormal [place] Lymphocytes (Bld) [#/Vol] 1.0 10*3/uL 1 - 4.3 10*3/uL [place] Lymphocytes/100 WBC (Bld) 12.2 % Low 20 - 40 % [place] MCH (RBC) [Entitic mass] 34.4 pg High 26 - 34 pg [place] MCHC (RBC) [Mass/Vol] 34.9 % 32 - 36 % [place] MCV (RBC) [Entitic vol] 98.7 fL High 79 - 98 fL [place] Monocytes (Bld) [#/Vol] 0.6 10*3/uL 0 - 0.8 10*3/uL [place] Monocytes/100 WBC (Bld) 7.3 % 2 - 10 % [place] Platelet mean volume (Bld) [Entitic vol] 9.2 fL 7.4 - 10.4 fL [place] Platelets (Bld) [#/Vol] 121 10*3/uL Low 140 - 440 10*3/uL [place] RBC (Bld) [#/Vol] 3.38 10*6/uL Low 3.8 - 5.2 10*6/uL [place] WBC (Bld) [#/Vol] 8.5 10*3/uL 3.6 - 10.7 10*3/uL [place] Test Performed by [address] [address] [place], [place] CR Elbow 2 Views Lefton CR Elbow 2 Views Left Patient Name: JAZMIN HOLDER Diagnostic Radiology ACCESSION EXAM DATE/TIME PROCEDURE ORDERING PROVIDER [id number] 10/20/2020 13:55 EST CR Elbow 2 Views Left MD TRINIDAD KEVIN CPT code 69910 Reason For Exam (CR Elbow 2 Views Left) bruising of left elbow Report Examination: Left elbow Clinical Indication: bruising of left elbow Comparison: None Findings: AP and lateral views left elbow and straight a small elbow joint effusion. Normal bone mineralization. No fracture or subluxation. No evidence of productive or erosive arthropathy. IV tubing overlies the proximal forearm laterally. Mild soft tissue swelling medial to the elbow. Impression: Suggestion of small elbow joint effusion. No visualized fracture or subluxation. If concern for occult fracture, follow-up x-ray would be recommended in 7-10 days. Report Dictated on Workstation: [employer] Final Dictated: 10/20/2020 1:32 pm Dictating Physician: MD CROWELL ANTHONY J Signed Date and Time: 10/20/2020 1:35 pm Signed by: MD CROWELL ANTHONY J Transcribed Date and Time: 10/20/2020 1:32 Normal [facility] CT Head or Brain w/o Contras ton 10-20-2020 CT Head or Brain w/o Contrast Patient Name: JAZMIN JOHNSON Computed Tomography ACCESSION EXAM DATE/TIME PROCEDURE ORDERING PROVIDER [id number] 10/20/2020 05:[address] Head or Brain w/o Bharat GARLAND, JOSE ALBERTO Contrast ZELAYA CPT code 80940 Reason For Exam (CT Head or Brain w/o Contrast) traumatic head injury with intraparenchymal hemorrhage, serial imaging Report CT HEAD: CLINICAL INDICATION: Follow-up for trauma TECHNIQUE: Transaxial CT sequence performed through the head with 3 mm reconstruction. Sagittal and Coronal reconstruction images included. Dose reduction employed with automated exposure control. COMPARISON: 12 hours ago FINDINGS: High attenuation hemorrhagic collections are noted along the periphery of the posterior base of the right and left temporal lobe, likely subcortical intraparenchymal hemorrhagic contusions. There is minimal surrounding low-attenuation edema. No other hemorrhagic collection is identified throughout the cerebrum or cerebellum. Ventricles and sulci are relatively enlarged without extra-axial collection. Brainstem: Normal Visualized Paranasal sinuses: Normal. Mastoid air cells: Normal Visualized Orbits: Normal Calvarium and skull base: No skull fracture is identified. IMPRESSION: Subcortical hemorrhagic contusions at the posterior base of the right and left temporal lobe without change from 12 hours ago. Report Dictated on Workstation: [facility]REMOTE Final Dictated: 10/20/2020 5:29 am Dictating Physician: MD GUZMAN JEFFREY Signed Date and Time: 10/20/2020 5:42 am Signed by: MD GUZMAN JEFFREY Transcribed Date and Time: 10/20/2020 5:29 Normal [facility] CT head without contraston 0 10-20-2020 Patient Name: JAZMIN JOHNSON Computed Tomography ACCESSION EXAM DATE/TIME PROCEDURE ORDERING PROVIDER [id number] 10/20/2020 05:[address] Head or Brain w/o Bharat GARLAND, JOSE ALBERTO Contrast ZELAYA CPT code 53750 Reason For Exam (CT Head or Brain w/o Contrast) traumatic head injury with intraparenchymal hemorrhage, serial imaging Report CT HEAD: CLINICAL INDICATION: Follow-up for trauma TECHNIQUE: Transaxial CT sequence performed through the head with 3 mm reconstruction. Sagittal and Coronal reconstruction images included. Dose reduction employed with automated exposure control. COMPARISON: 12 hours ago FINDINGS: High attenuation hemorrhagic collections are noted along the periphery of the posterior base of the right and left temporal lobe, likely subcortical intraparenchymal hemorrhagic contusions. There is minimal surrounding low-attenuation edema. No other hemorrhagic collection is identified throughout the cerebrum or cerebellum. Ventricles and sulci are relatively enlarged without extra-axial collection. Brainstem: Normal Visualized Paranasal sinuses: Normal. Mastoid air cells: Normal Visualized Orbits: Normal Calvarium and skull base: No skull fracture is identified. IMPRESSION: Subcortical hemorrhagic contusions at the posterior base of the right and left temporal lobe without change from 12 hours ago. Report Dictated on Workstation: [id number] --- Final --- Dictated: 10/20/2020 5:29 am Dictating Physician: MD GUZMAN JEFFREY Signed Date and Time: 10/20/2020 5:42 am Signed by: MD GUZMAN JEFFREY Transcribed Date and Time: 10/20/2020 5:29 [facility], [place] [place] Incoming Radiology Results From [facility] - 10/20/2020 5:43 AM EST Patient Name: JAZMIN JOHNSON Computed Tomography ACCESSION EXAM DATE/TIME PROCEDURE ORDERING PROVIDER [id number] 10/20/2020 05:[address] Head or Brain w/o Bharat GARLAND, JOSE ALBERTO Contrast ZELAYA CPT code 23797 Reason For Exam (CT Head or Brain w/o Contrast) traumatic head injury with intraparenchymal hemorrhage, serial imaging Report CT HEAD: CLINICAL INDICATION: Follow-up for trauma TECHNIQUE: Transaxial CT sequence performed through the head with 3 mm reconstruction. Sagittal and Coronal reconstruction images included. Dose reduction employed with automated exposure control. COMPARISON: 12 hours ago FINDINGS: High attenuation hemorrhagic collections are noted along the periphery of the posterior base of the right and left temporal lobe, likely subcortical intraparenchymal hemorrhagic contusions. There is minimal surrounding low-attenuation edema. No other hemorrhagic collection is identified throughout the cerebrum or cerebellum. Ventricles and sulci are relatively enlarged without extra-axial collection. Brainstem: Normal Visualized Paranasal sinuses: Normal. Mastoid air cells: Normal Visualized Orbits: Normal Calvarium and skull base: No skull fracture is identified. IMPRESSION: Subcortical hemorrhagic contusions at the posterior base of the right and left temporal lobe without change from 12 hours ago. Report Dictated on Workstation: [facility] --- Final --- Dictated: 10/20/2020 5:29 am Dictating Physician: MD GUZMAN JEFFREY Signed Date and Time: 10/20/2020 5:42 am Signed by: MD GUZMAN JEFFREY Transcribed Date and Time: 10/20/2020 5:29 [facility], [place] CTA HEAD NECK W WO CONTRASTo n 10-20-2020 [place], [place] Incoming Radiology Results From [facility] - 10/20/2020 12:48 PM EST Patient Name: JAZMIN JOHNSON Computed Tomography ACCESSION EXAM DATE/TIME PROCEDURE ORDERING PROVIDER [id number] 10/20/2020 11:49 EST CTA Head/Neck w/ + w/o MD CL JAJA contrast CPT code 30493 [id number] Q9967 Reason For Exam (CTA Head/Neck w/ + w/o contrast) orbital wall fx Report EXAMINATION: CTA of the Neck with and without contrast. CTA of the Head with and without contrast. COMPARISON: None. REASON FOR STUDY: Orbital wall fracture; intracranial hemorrhage. TECHNIQUE: Contiguous multiplanar 0.5 mm images were extended from the cranial vertex through the upper mediastinum before and after intravenous infusion of 75 mL of Isovue-370. I, concurrently, rendered and reviewed 4D images on a 3-D workstation. FINDINGS: CTA Of The Intracranial Vessels: Bilateral anterior, middle and posterior cerebral arteries show normal distribution and arborization. Intracranial segments of the internal carotid arteries and carotid siphons are patent and show no significant narrowing. No cerebral arterial aneurysm is observed. Basilar artery is patent and shows no significant narrowing. Intracranial segments of vertebral arteries are patent and show normal caliber. CTA Of The Neck: Origins of the brachiocephalic vessels are patent and show no significant narrowing. Common and external carotid arteries as well as cervical segments of the internal carotid arteries are patent bilaterally and show no significant narrowing or change in morphology. Cervical segments of the vertebral arteries extending through the axis loop are patent and show no significant narrowing or change in morphology. CONCLUSIONS: 1. No cerebral arterial occlusion or aneurysm identified. 2. Patent carotid and vertebrobasilar systems. Computed Tomography Report Left internal carotid stenosis: 0.0% by NASCET criteria. Right internal carotid stenosis: 0.0% by NASCET criteria. Report Dictated on --- Final --- Dictated: 10/20/2020 12:44 pm Dictating Physician: MD JOHNSON B NELSON Signed Date and Time: 10/20/2020 12:47 pm Signed by: MD JOHNSON B NELSON Transcribed Date and Time: 10/20/2020 12:44 [place] [id number] ACCESSION EXAM DATE/TIME PROCEDURE ORDERING PROVIDER [id number] 10/20/2020 11:49 EST CTA Head/Neck w/ + w/o MD CL JAJA contrast CPT code 62843 [id number] Q9967 Reason For Exam (CTA Head/Neck w/ + w/o contrast) orbital wall fx Report EXAMINATION: CTA of the Neck with and without contrast. CTA of the Head with and without contrast. COMPARISON: None. REASON FOR STUDY: Orbital wall fracture; intracranial hemorrhage. TECHNIQUE: Contiguous multiplanar 0.5 mm images were extended from the cranial vertex through the upper mediastinum before and after intravenous infusion of 75 mL of Isovue-370. I, concurrently, rendered and reviewed 4D images on a 3-D workstation. FINDINGS: CTA Of The Intracranial Vessels: Bilateral anterior, middle and posterior cerebral arteries show normal distribution and arborization. Intracranial segments of the internal carotid arteries and carotid siphons are patent and show no significant narrowing. No cerebral arterial aneurysm is observed. Basilar artery is patent and shows no significant narrowing. Intracranial segments of vertebral arteries are patent and show normal caliber. CTA Of The Neck: Origins of the brachiocephalic vessels are patent and show no significant narrowing. Common and external carotid arteries as well as cervical segments of the internal carotid arteries are patent bilaterally and show no significant narrowing or change in morphology. Cervical segments of the vertebral arteries extending through the axis loop are patent and show no significant narrowing or change in morphology. CONCLUSIONS: 1. No cerebral arterial occlusion or aneurysm identified. 2. Patent carotid and vertebrobasilar systems. Computed Tomography Report Left internal carotid stenosis: 0.0% by NASCET criteria. Right internal carotid stenosis: 0.0% by NASCET criteria. Report Dictated on --- Final --- Dictated: 10/20/2020 12:44 pm Dictating Physician: MD JOHNSON B NELSON Signed Date and Time: 10/20/2020 12:47 pm Signed by: MD JOHNSON B NELSON Transcribed Date and Time: 10/20/2020 12:44 [place] CTA Head/Neck w/ + w/o contr marilynn 10-20-2020 CTA Head/Neck w/ + w/o contrast [facility]: [id number] ACCESSION EXAM DATE/TIME PROCEDURE ORDERING PROVIDER [id number] 10/20/2020 11:49 EST CTA Head/Neck w/ + w/o MD ALBERT LORNA contrast CPT code [id number] Q9967 Reason For Exam (CTA Head/Neck w/ + w/o contrast) orbital wall fx Report EXAMINATION: CTA of the Neck with and without contrast. CTA of the Head with and without contrast. COMPARISON: None. REASON FOR STUDY: Orbital wall fracture; intracranial hemorrhage. TECHNIQUE: Contiguous multiplanar 0.5 mm images were extended from the cranial vertex through the upper mediastinum before and after intravenous infusion of 75 mL of Isovue-370. I, concurrently, rendered and reviewed 4D images on a 3-D workstation. FINDINGS: CTA Of The Intracranial Vessels: Bilateral anterior, middle and posterior cerebral arteries show normal distribution and arborization. Intracranial segments of the internal carotid arteries and carotid siphons are patent and show no significant narrowing. No cerebral arterial aneurysm is observed. Basilar artery is patent and shows no significant narrowing. Intracranial segments of vertebral arteries are patent and show normal caliber. CTA Of The Neck: Origins of the brachiocephalic vessels are patent and show no significant narrowing. Common and external carotid arteries as well as cervical segments of the internal carotid arteries are patent bilaterally and show no significant narrowing or change in morphology. Cervical segments of the vertebral arteries extending through the axis loop are patent and show no significant narrowing or change in morphology. CONCLUSIONS: 1. No cerebral arterial occlusion or aneurysm identified. 2. Patent carotid and vertebrobasilar systems. Computed Tomography Report Left internal carotid stenosis: 0.0% by NASCET criteria. Right internal carotid stenosis: 0.0% by NASCET criteria. Report Dictated on Final Dictated: 10/20/2020 12:44 pm Dictating Physician: MD JOHNSON B NELSON Signed Date and Time: 10/20/2020 12:47 pm Signed by: MD JOHNSON B NELSON Transcribed Date and Time: 10/20/2020 12:44 Normal [facility] Complete Urinalysison 2020 Appearance (U) Clear Normal Clear [facility] Comment on above: Result Comment: . Performed By: #### E TOH4 #### [place] [address] [place] [address] Bilirubin,Urine Negative Normal Negative [facility] Comment on above: Result Comment: . Performed By: #### E TOH4 #### [facility] [address], [place] Color (U) Yellow Normal Lt. Yellow [facility] Comment on above: Result Comment: . Performed By: #### E TOH4 #### [place] [address] [place], [place] Glucose Ql (U) Normal Normal Normal (<70) [facility] Comment on above: Result Comment: . Performed By: #### E TOH4 #### [place] [address] [place], [place] Ketone,Urine 40 mg/dL Abnormal Negative [facility] Comment on above: Result Comment: . Performed By: #### E TOH4 #### [place] [address] [place], [place] Leukocytes,Urine Negative Normal Negative [facility] Comment on above: Result Comment: . Performed By: #### E TOH4 #### [place] [address] [place], [place] Nitrites,Urine Negative Normal Negative [facility] Comment on above: Result Comment: . Performed By: #### E TOH4 #### [place] [address] [place], [place] Occult Blood,Urine Negative Normal Negative [facility] Comment on above: Result Comment: . Performed By: #### E TOH4 #### [place] [address] [place], [place] pH,Urine 8.0 Normal 5.0-8.0 [facility] Comment on above: Result Comment: . Performed By: #### E TOH4 #### [place] [address] [place], [place] Protein (U) [Mass/Vol] 20 mg/dL Abnormal Negative [facility] Comment on above: Result Comment: . Performed By: #### E TOH4 #### [place] [address], [place] Specific [place],Urine > 1.030 Abnormal 1.005 - 1.030 [facility] Comment on above: Result Comment: . Performed By: #### E TOH4 #### [place] [address] [place], [place] Urobilinogen,Urine 2 mg/dL Abnormal Normal (0-1) [facility] Comment on above: Result Comment: . Performed By: #### E TOH4 #### [facility] [address], [place] Drugs of Abuseon 10-20-2020 Opiates, Ur Negative Normal [facility] Comment on above: Performed By: #### E TOH4 #### [place] [address] [facility] [place] Phencyclidine (PCP), Ur Negative Normal [facility] Comment on above: Result Comment: The expected value for all of the drugs listed above is Negative. The following drugs or drug groups have been screened for by Immunoassay at the following thresholds: Amphetamine class (1000 ng/mL), Barbiturates (200 ng/mL), Benzodiazepines (200 ng/mL), Cocaine (300 ng/mL), Methadone (300 ng/mL), Opiates (300 ng/mL), Oxycodone (100 ng/mL), and PCP (25 ng/mL). NOTE: These results are for medical treatment only. Analysis performed using non-forensic procedures. POSITIVE results are NOT confirmed by a more specific alternative method unless requested. If confirmation is needed, request confirmation under separate order. Performed By: #### E TOH4 #### [place] [address] [facility], [place] Methadone, Ur Negative Normal [facility] Comment on above: Performed By: #### E TOH4 #### [facility] [address] [facility] Benzodiazepines, Ur Negative Normal [facility] Comment on above: Performed By: #### E TOH4 #### [place] [address] [facility] Cocaine, Ur Negative Normal [facility] Comment on above: Performed By: #### E TOH4 #### [place] [address] [facility] Amphetamines, Ur Negative Normal [facility] Comment on above: Performed By: #### E TOH4 #### [place] [address] [place], [place] Barbiturates, Ur Negative Normal [facility] Comment on above: Performed By: #### E TOH4 #### [facility] [address] [place], [place] Oxycodone/Oxymorphine ,Ur Negative Normal [facility] Comment on above: Performed By: #### E TOH4 #### [place] [address] [place], [place] Ethanol Serum/Plasmaon 10-20 Ethanol-Serum/Plasma 0.049 g/dL High 0.000-0.010 [facility] Comment on above: Result Comment: NOTE : This result is for medical treatment only. Analysis performed using non-forensic procedures. Performed By: #### E TOH4 #### [place] [address] [place], [place] Hemogram w/ Autodiffon 10-20 Platelet mean volume (Bld) [Entitic vol] 9.2 fL Normal 7.4-10.4 [facility] Comment on above: Performed By: #### B MP3 #### [place] [address] [place], [place] Platelets (Bld) [#/Vol] 121 10*3/uL Low 140-440 [facility] Comment on above: Performed By: #### B MP3 #### [place] [address] [place], [place] Abs Baso Cnt 0.1 10*3/uL Normal 0.0-0.2 [facility] Comment on above: Performed By: #### B MP3 #### [place] [address] [place], [place] Abs Neutrophile Cnt 6.8 10*3/uL Normal 1.8-7.0 [facility] Comment on above: Performed By: #### B MP3 #### [place] [address] [place], [place] Basophils/100 WBC (Bld) 0.9 % Normal 0.0-2.0 [facility] Comment on above: Performed By: #### B MP3 #### [facility] [address] [place] [address] Eosinophils (Bld) [#/Vol] 0.0 10*3/uL Normal 0.0-0.5 [facility] Comment on above: Performed By: #### B MP3 #### [facility] [address] [place] [address] Eosinophils/100 WBC (Bld) 0.1 % Low 1.0-6.0 [facility] Comment on above: Performed By: #### B MP3 #### [facility] [address] [place] [address] Erythrocyte distribution width (RBC) [Ratio] 14.8 % High 11.5-14.5 [facility] Comment on above: Performed By: #### B MP3 #### [facility] [address] [place] [address] Granulocytes/100 WBC (Bld) 79.5 % Normal 40.0-80.0 [facility] Comment on above: Performed By: #### B MP3 #### [facility] [address] [place] [address] Hematocrit (Bld) [Volume fraction] 33.3 % Low 35.0-47.0 [facility] Comment on above: Performed By: #### B MP3 #### [facility] [address] [place] [address] Hemoglobin (Bld) [Mass/Vol] 11.6 g/dL Low 11.7-16.0 [facility] Comment on above: Performed By: #### B MP3 #### [facility] [address] [place] [address] Lymphocytes (Bld) [#/Vol] 1.0 10*3/uL Normal 1.0-4.3 [facility] Comment on above: Performed By: #### B MP3 #### [facility] [address] [place] [address] Lymphocytes/100 WBC (Bld) 12.2 % Low 20.0-40.0 [facility] Comment on above: Performed By: #### B MP3 #### [facility] [address] [place], [place] MCH (RBC) [Entitic mass] 34.4 pg High 26.0-34.0 [facility] Comment on above: Performed By: #### B MP3 #### [facility] [address], [place] MCHC 34.9 % Normal 32.0-36.0 [facility] Comment on above: Performed By: #### B MP3 #### [facility] [address] [place], [place] MCV (RBC) [Entitic vol] 98.7 fL High 79.0-98.0 [facility] Comment on above: Performed By: #### B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 Patient has bruises on her left low flank and low back areas. She has multiple bruises on her lower extremities, all of the bruises are purple and black in color. No obvious focal bony prominence tenderness. Equal distal pulses. There is no focal motor deficits. Brief ED course/MDM: Multiple CT scans are obtained. She does have intracranial hemorrhage. When I discussed these findings on the head CT with radiology I subsequently then called the [facility] and discussed the case with Dr. Han of trauma services who accepts patient for direct admission. Patient is transferred in stable condition Electrocardiogram: Sinus tachycardia. Rate of 112. Left axis deviation. No acute appearing ST segment changes. No old available for comparison. Today's electrocardiogram read by this examiner Critical care time for this patient greater than 35 minutes. Critical care time for the following diagnosis: Multiple trauma. Critical care includes: Serial exams, cardiac monitoring. Time spent is exclusive of separately billable procedures. All diagnostic, treatment, and disposition decisions were made by myself in conjunction with the [facility]. For all further details of the patient's emergency department visit, please see their documentation. (Please note that portions of this note may have been completed with a voice recognition program. Efforts were made to edit the dictations but occasionally words are mis-transcribed.) Jack Bhatti MD [employer] Jack Bhatti MD 10/19/20 190 Jack Bhatti MD 10/19/20 1905 [facility] : 1950 Date of Evaluation: 10/19/2020 ED [facility] Provider: Alejandro Aguilar PA-C EDcare was supervised by Dr. Bhatti who independently examined and evaluated the patient. Please see their attestation note for further details. Protective eyewear, an N95 respirator, and gloves were worn during the entirety of this encounter. Chief Complaint Chief Complaint Patient presents with ? Head Injury ? Altered Mental Status IMTIAZ Johnson is a 70 y.o. female who presents to the emergency department for evaluation of altered mental status, head injury. Patient found by her boyfriend at home with a black eye, blood all over her hands, and bruises to her body. Patient does not know what had happened. Patient says that she remembers last night drinking alcohol and taking a trazodone and going to sleep she says that she woke up this morning in her bed, unsure if anything happened last night. She complains of a left-sided frontal headache rated 4/10, otherwise has no complaints. Patient states that she does drink daily, denies drinking anything today, last drink was last night before bed. Patient alert and oriented ?2. Denies chest pain, short of breath, lightheadedness, dizziness, neck or back pain, saddle anesthesia. ROS: Review of Systems At least 10 systems reviewed and otherwise acutely negative except as in the NINILCHIK. Past History Past Medical History: Diagnosis Date ? Anxiety and depression ? Hyperlipidemia ? Thyroid disease Past Surgical History: Procedure Laterality Date ? COLONOSCOPY ? ENDOSCOPY, COLON, DIAGNOSTIC Social History Socioeconomic History ? Marital status: Spouse name: None ? Number of children: None ? Years of education: None ? Highest education level: None Occupational History ? None Social Needs ? Financial resource strain: None ? Food insecurity Worry: None Inability: None ? Transportation needs Medical: None Non-medical: None Tobacco Use ? Smoking status: Current Every Day Smoker Packs/day: 0.50 Years: 40.00 Pack years: 20.00 Types: Cigarettes ? Smokeless tobacco: Never Used ? Tobacco comment: off and on smoking Substance and Sexual Activity ? Alcohol use: Not Currently Comment: last drink 3 yrs ago ? Drug use: Never ? Sexual activity: None Lifestyle ? Physical activity Days per week: None Minutes per session: None ? Stress: None Relationships ? Social connections Talks on phone: None Gets together: None Attends zoroastrianism service: None Active member of club or organization: None Attends meetings of clubs or organizations: None Relationship status: None ? Intimate partner violence Fear of current or ex partner: None Emotionally abused: None Physically abused: None Forced sexual activity: None Other Topics Concern ? None Social History Narrative ? None Medications/Allergies Previous Medications ASPIRIN 81 MG EC TABLET Take 81 mg by mouth daily CHOLECALCIFEROL (VITAMIN D3) 50 MCG (2000 UT) CAPS Take by mouth daily CYANOCOBALAMIN (VITAMIN B-12 PO) Take by mouth daily DULOXETINE (CYMBALTA) 60 MG EXTENDED RELEASE CAPSULE Take 60 mg by mouth daily HYALURONIC ACID-VITAMIN C (HYALURONIC ACID PO) Take 100 mg by mouth daily LACTOBACILLUS (ACIDOPHILUS PO) Take by mouth daily LEVOTHYROXINE SODIUM 50 MCG CAPS Take by mouth Daily MULTIPLE VITAMINS-MINERALS (THERAPEUTIC MULTIVITAMIN-MINERALS) TABLET Take 1 tablet by mouth daily NONFORMULARY Take 1,000 mg by mouth daily S-adenosylmethosine PRAVASTATIN (PRAVACHOL) 40 MG TABLET Take 40 mg by mouth daily TRAZODONE (DESYREL) 100 MG TABLET Take 100 mg by mouth nightly ZINC 50 MG TABS TABLET Take 50 mg by mouth daily No Known Allergies Physical Exam ED Triage Vitals BP Temp Temp Source Pulse Resp SpO2 Height Weight 10/19/20 1600 10/19/20 1600 10/19/20 1600 10/19/20 1601 10/19/20 1600 10/19/20 1600 -- -- 125/71 99.5 ?F (37.5 ?C) Temporal 105 18 95 % Physical Exam Vitals signs and nursing note reviewed. Constitutional: General: She is not in acute distress. Appearance: She is not ill-appearing or toxic-appearing. HENT: Head: Normocephalic. No raccoon eyes or Hernandez's sign. Right Ear: No hemotympanum. Left Ear: No hemotympanum. Mouth/Throat: Lips: [place]. Mouth: Mucous membranes are dry. Pharynx: Oropharynx is clear. Uvula midline. Eyes: Extraocular Movements: Extraocular movements intact. Right eye: Normal extraocular motion. Left eye: Normal extraocular motion. Pupils: Pupils are equal, round, and reactive to light. Right eye: Pupil is reactive. Neck: Musculoskeletal: Normal range of motion and neck supple. No neck rigidity. Cardiovascular: Rate and Rhythm: Regular rhythm. Tachycardia present. Heart sounds: Normal heart sounds. Pulmonary: Effort: Pulmonary effort is normal. Breath sounds: Norm (more content not included)... Normal [facility] Ethanolon 10-19-2020 Ethanol Lvl 0.049 g/dL High 0 - 0.01 g/dL [place], [place] Comment on above: NOTE: This result is for medical treatment only. Analysis performed using non-forensic procedures. Interpretation and review of laboratory results Abnormal [place], [place] Test Performed by [facility], [address] [place] [id number] [place], [place] Ethanol Lvl 0.223 g/dL High 0 - 0.01 g/dL [place] Comment on above: NOTE: This result is for medical treatment only. Analysis performed using non-forensic procedures. Ethanol Serum/Plasmaon 10-19 Ethanol-Serum/Plasma 0.223 g/dL High 0.000-0.010 [facility] Comment on above: Result Comment: NOTE : This result is for medical treatment only. Analysis performed using non-forensic procedures. Performed By: #### B MP3, CK3, TROPN, LFT3, HEMDF, NH33, ETOH4 #### [facility] [address] [place] [address] Hemogram (CBC) w/Auto Diffon 10-19-2020 Absolute Baso # 0.1 10*3/uL 0 - 0.2 10*3/uL [place] Absolute Neut # 5.2 10*3/uL 1.8 - 7 10*3/uL [place] Basophils/100 WBC (Bld) 1.1 % 0 - 2 % [place] Eosinophils (Bld) [#/Vol] 0.0 10*3/uL 0 - 0.5 10*3/uL [place] Eosinophils/100 WBC (Bld) 0.4 % Low 1 - 6 % [place] Erythrocyte distribution width (RBC) [Ratio] 15.1 % High 11.5 - 14.5 % [place] Granulocytes/100 WBC (Bld) 75.3 % 40 - 80 % [place] Hematocrit (Bld) [Volume fraction] 41.7 % 35 - 47 % [place] Hemoglobin (Bld) [Mass/Vol] 13.9 g/dL 11.7 - 16 g/dL [place] Interpretation and review of laboratory results Abnormal [place] Lymphocytes (Bld) [#/Vol] 1.1 10*3/uL 1 - 4.3 10*3/uL [place] Lymphocytes/100 WBC (Bld) 16.5 % Low 20 - 40 % [place] MCH (RBC) [Entitic mass] 33.3 pg 26 - 34 pg [place] MCHC (RBC) [Mass/Vol] 33.4 % 32 - 36 % [place] MCV (RBC) [Entitic vol] 99.6 fL High 79 - 98 fL [place] Monocytes (Bld) [#/Vol] 0.5 10*3/uL 0 - 0.8 10*3/uL [place] Monocytes/100 WBC (Bld) 6.7 % 2 - 10 % [place] Platelet mean volume (Bld) [Entitic vol] 8.7 fL 7.4 - 10.4 fL [place] Platelets (Bld) [#/Vol] 137 10*3/uL Low 140 - 440 10*3/uL [place] RBC (Bld) [#/Vol] 4.19 10*6/uL 3.8 - 5.2 10*6/uL [place] WBC (Bld) [#/Vol] 6.9 10*3/uL 3.6 - 10.7 10*3/uL [place] Test Performed by [facility], [address] [place], [place] [address] [place] Hemogram w/ Autodiffon 10-19 Abs Baso Cnt 0.1 10*3/uL Normal 0.0-0.2 [facility] Comment on above: Performed By: #### B MP3, CK3, TROPN, LFT3, HEMDF, NH33, ETOH4 #### [facility] [address] [place] [address] Abs Neutrophile Cnt 5.2 10*3/uL Normal 1.8-7.0 [facility] Comment on above: Performed By: #### B MP3, CK3, TROPN, LFT3, HEMDF, NH33, ETOH4 #### [facility] [address] [place] [address] Basophils/100 WBC (Bld) 1.1 % Normal 0.0-2.0 [facility] Comment on above: Performed By: #### B MP3, CK3, TROPN, LFT3, HEMDF, NH33, ETOH4 #### [facility] [address] [place] [address] Eosinophils (Bld) [#/Vol] 0.0 10*3/uL Normal 0.0-0.5 [facility] Comment on above: Performed By: #### B MP3, CK3, TROPN, LFT3, HEMDF, NH33, ETOH4 #### [facility] [address] [place] [address] Eosinophils/100 WBC (Bld) 0.4 % Low 1.0-6.0 [facility] Comment on above: Performed By: #### B MP3, CK3, TROPN, LFT3, HEMDF, NH33, ETOH4 #### [facility] [address] [place] [address] Erythrocyte distribution width (RBC) [Ratio] 15.1 % High 11.5-14.5 [facility] Comment on above: Performed By: #### B MP3, CK3, TROPN, LFT3, HEMDF, NH33, ETOH4 #### [facility] [address] [place] [address] Granulocytes/100 WBC (Bld) 75.3 % Normal 40.0-80.0 [facility] Comment on above: Performed By: #### B MP3, CK3, TROPN, LFT3, HEMDF, NH33, ETOH4 #### [facility] [address] [place] [address] Hematocrit (Bld) [Volume fraction] 41.7 % Normal 35.0-47.0 [facility] Comment on above: Performed By: #### B MP3, CK3, TROPN, LFT3, HEMDF, NH33, ETOH4 #### [facility] [address] [place] [address] Hemoglobin (Bld) [Mass/Vol] 13.9 g/dL Normal 11.7-16.0 [facility] Comment on above: Performed By: #### B MP3, CK3, TROPN, LFT3, HEMDF, NH33, ETOH4 #### [facility] [address] [place] [address] Lymphocytes (Bld) [#/Vol] 1.1 10*3/uL Normal 1.0-4.3 [facility] Comment on above: Performed By: #### B MP3, CK3, TROPN, LFT3, HEMDF, NH33, ETOH4 #### [facility] [address] [place] [address] Lymphocytes/100 WBC (Bld) 16.5 % Low 20.0-40.0 [facility] Comment on above: Performed By: #### B MP3, CK3, TROPN, LFT3, HEMDF, NH33, ETOH4 #### [facility] [address] [place] [address] MCH (RBC) [Entitic mass] 33.3 pg Normal 26.0-34.0 [facility] Comment on above: Performed By: #### B MP3, CK3, TROPN, LFT3, HEMDF, NH33, ETOH4 #### [facility] [address] [place] [address] MCHC 33.4 % Normal 32.0-36.0 [facility] Comment on above: Performed By: #### B MP3, CK3, TROPN, LFT3, HEMDF, NH33, ETOH4 #### [facility] [address] [place] [address] MCV (RBC) [Entitic vol] 99.6 fL High 79.0-98.0 [facility] Comment on above: Performed By: #### B MP3, CK3, TROPN, LFT3, HEMDF, NH33, ETOH4 #### [facility] [address] [place] [address] Monocytes (Bld) [#/Vol] 0.5 10*3/uL Normal 0.0-0.8 [facility] Comment on above: Performed By: #### B MP3, CK3, TROPN, LFT3, HEMDF, NH33, ETOH4 #### [facility] [address] [place] [address] Monocytes/100 WBC (Bld) 6.7 % Normal 2.0-10.0 [facility] Comment on above: Performed By: #### B MP3, CK3, TROPN, LFT3, HEMDF, NH33, ETOH4 #### [facility] [address] [place] [address] Platelet mean volume (Bld) [Entitic vol] 8.7 fL Normal 7.4-10.4 [facility] Comment on above: Performed By: #### B MP3, CK3, TROPN, LFT3, HEMDF, NH33, ETOH4 #### [facility] [address] [place] [address] Platelets (Bld) [#/Vol] 137 10*3/uL Low 140-440 [facility] Comment on above: Performed By: #### B MP3, CK3, TROPN, LFT3, HEMDF, NH33, ETOH4 #### [facility] [address] [place] [address] RBC (Bld) [#/Vol] 4.19 10*6/uL Normal 3.80-5.20 [facility] Comment on above: Performed By: #### B MP3, CK3, TROPN, LFT3, HEMDF, NH33, ETOH4 #### [facility] [address] [place] [address] WBC (Bld) [#/Vol] 6.9 10*3/uL Normal 3.6-10.7 [facility] Comment on above: Performed By: #### B MP3, CK3, TROPN, LFT3, HEMDF, NH33, ETOH4 #### [facility] [address] [place] [address] Hepatic Functionon 1 AST [Catalytic activity/Vol] 75 U/L High 15-46 [facility] Comment on above: Performed By: #### B MP3, CK3, TROPN, LFT3, HEMDF, NH33, ETOH4 #### [facility] [address] [place] [address] Bilirubin [Mass/Vol] 0.4 mg/dL Normal 0.2-1.3 [facility] Comment on above: Performed By: #### B MP3, CK3, TROPN, LFT3, HEMDF, NH33, ETOH4 #### [facility] [address] [place] [address] Bilirubin.indirect [Mass/Vol] 0.0 mg/dL Normal 0.0-0.3 [facility] Comment on above: Performed By: #### B MP3, CK3, TROPN, LFT3, HEMDF, NH33, ETOH4 #### [facility] [address] [place] [address] Protein [Mass/Vol] 6.5 g/dL Normal 6.3-8.2 [facility] Comment on above: Performed By: #### B MP3, CK3, TROPN, LFT3, HEMDF, NH33, ETOH4 #### [facility] [address] [place] [address] Albumin [Mass/Vol] 3.8 g/dL Normal 3.5-5.0 [facility] Comment on above: Performed By: #### B MP3, CK3, TROPN, LFT3, HEMDF, NH33, ETOH4 #### [facility] [address] [place] [address] ALP [Catalytic activity/Vol] 63 U/L Normal 38-126 [place] Comment on above: Performed By: #### B MP3, CK3, TROPN, LFT3, HEMDF, NH33, ETOH4 #### [facility] [address] [place] [address] ALT [Catalytic activity/Vol] 59 U/L High 0-34 [place] Comment on above: The ALT test is perf ormed by an updated assay method. Please note that the reference intervals have been changed and are now sex specific. Result Comment: The ALT test is performed by an updated assay method. Please note that the reference intervals have been changed and are now sex specific. Performed By: #### B MP3, CK3, TROPN, LFT3, HEMDF, NH33, ETOH4 #### [facility] [address] [place] [address] Hepatic Function Panelon Albumin [Mass/Vol] 3.8 g/dL 3.5 - 5 g/dL [place], [place] AST [Catalytic activity/Vol] 75 U/L High 15 - 46 U/L [place] Bilirubin Ql (U) 0.4 mg/dL 0.2 - 1.3 mg/dL [place] Bilirubin.direct [Mass/Vol] 0.0 mg/dL 0 - 0.3 mg/dL [place] Protein [Mass/Vol] 6.5 g/dL 6.3 - 8.2 g/dL [place] Otheron 10-19-2020 Test Performed by [facility], [address] [place] [address] [place] Interpretation and review of laboratory results Abnormal [place] Test Performed by [facility], [address], [place], [place] [id number] [place] [address] Protime-INRon 10-19-2020 INR Coag (PPP) [Relative time] 1.0 {INR} [place] Comment on above: Recommended Anticoag ulant Therapy: SEE BELOW ----- INR of 2.0 - 3.0 : - Prophylaxis of Venous Thrombosis (high-risk surgery) - Treatment of Venous Thrombosis - Treatment of Pulmonary Embolism (Includes tissue heart valves, Acute Myocardial Infarction to prevent systemic embolism, Valvular Heart Disease, and Atrial Fibrillation) ----- INR of 2.5 - 3.5 : - Mechanical Prosthetic Valves (high risk) - If oral anticoagulant therapy is used to prevent Myocardial Infarction PT Coag (PPP) [Time] 10.4 s 9 - 12 s [place], [place] Comment on above: . Troponin Ion 10-19-2020 Troponin I.cardiac [Mass/Vol] ng/mL Normal 0.000-0.034 [facility] Comment on above: Result Comment: . Performed By: #### B MP3, CK3, TROPN, LFT3, HEMDF, NH33, ETOH4 #### [facility] [address] [place] [address] Troponin x1on 10-19-2020 Troponin I.cardiac [Mass/Vol] ng/mL 0 - 0.034 ng/mL [place] Comment on above: . Test Performed by [facility], [address], [place], [place] [address] [place] Basic Metabolic PanelOrdered By: Jack Bhatti on 11-03-2019 Anion gap [Moles/Vol] 11 mmol/L [facility] Work Phone: Calcium [Mass/Vol] 9.1 mg/dL 8.4 - 10. 4 mg/dL [facility] Work Phone: [phone] Chloride [Moles/Vol] 108 mmol/L High 98 - 107 mmol/L [facility] Work Phone: [phone] CO2 [Moles/Vol] 26 mmol/L 22 - 30 mmol/L [facility] Work Phone: [phone] Creatinine [Mass/Vol] 0.52 mg/dL 0.52 - 1.25 mg/dL [facility] Work Phone: [phone] EGFR IF NonAfrican Eritrean >60.0 >60 mL/min [facility] Work Phone: [phone] Comment on above: Source- MDRD equatio n with creatinine calibration to IDMS(NKDEP) eGFR not recommended for drug dose adjustment GFR/1.73 sq M.predicted among blacks MDRD (S/P/Bld) [Vol rate/Area] mL/min/{1.73_m2} >60 mL/min [facility] Work Phone: [phone] Glucose [Mass/Vol] 90 mg/dL 70 - 100 mg/dL [facility] Work Phone: [phone] Interpretation and review of laboratory results Abnormal [facility] Work Phone: [phone] Potassium [Moles/Vol] 3.8 mmol/L 3.5 - 5.1 mmol/L [facility] Work Phone: [phone] Sodium [Moles/Vol] 145 mmol/L 135 - 145 mmol/L [facility] Work Phone: [phone] Urea nitrogen [Mass/Vol] 12 mg/dL 7 - 20 mg/dL [facility] Work Phone: [phone] CT Cervical Spine WO Contras tOrdered By: Jack Bhatti on 11-03-2019 Patient Name: JAZMIN JOHNSON ---CT--- Exam Date/Time 11/03/2019 16:16:[address] Spine Cervical w/o Contrast Ordering Physician JACK BHATTI Accession Number [id number] CPT4 Codes 72405 () Reason For Exam fall, neck pain Report CT BRAIN AND CERVICAL SPINE WITHOUT CONTRAST CLINICAL INDICATION: fall, head injury, syncope TECHNIQUE: CT scan of the brain and cervical spine without IV contrast. Multiplanar reformations. COMPARISON: October,. FINDINGS: Brain: No parenchymal mass, mass effect, hemorrhage, midline shift or hydrocephalus. No evidence of acute cortical infarct. No abnormal, extra-axial fluid or air collection. Mild low density in the periventricular and subcortical white matter is nonspecific, but may relate to chronic small vessel ischemic change. Bilateral basal calcifications again noted. Age-related volume loss. Osseous calvarium grossly intact. Mild soft tissue edema or contusion in the left frontal scalp. Cervical spine: Multilevel degenerative disc disease and spondylosis. No acute compression deformity or gross malalignment of cervical vertebral bodies. No acute fracture. No acute, osseous central spinal canal encroachment. Paraspinal soft tissues grossly unremarkable. IMPRESSION: 1. No acute intracranial findings. Chronic ischemic and atrophic changes. 2. No acute compression deformity or apparent fracture in the cervical spine. Degenerative spondylosis. Report Dictated on Workstation: [facility] --- Final --- Dictated: 11/03/2019 4:33 pm Dictating Physician: MD MARINELLI WENDELL Signed Date and Time: 11/03/2019 4:39 pm Signed by: MD MARINELLI WENDELL Transcribed Date and Time: 11/03/2019 4:33 [facility] Work Phone: [place], [facility] Incoming Radiology Results From [facility] - 11/03/2019 4:41 PM EST Patient Name: JAZMIN JOHNSON ---CT--- Exam Date/Time 11/03/2019 16:16:[address] Spine Cervical w/o Contrast Ordering Physician JACK BHATTI Accession Number [id number] CPT4 Codes 83681 () Reason For Exam fall, neck pain Report CT BRAIN AND CERVICAL SPINE WITHOUT CONTRAST CLINICAL INDICATION: fall, head injury, syncope TECHNIQUE: CT scan of the brain and cervical spine without IV contrast. Multiplanar reformations. COMPARISON: October,. FINDINGS: Brain: No parenchymal mass, mass effect, hemorrhage, midline shift or hydrocephalus. No evidence of acute cortical infarct. No abnormal, extra-axial fluid or air collection. Mild low density in the periventricular and subcortical white matter is nonspecific, but may relate to chronic small vessel ischemic change. Bilateral basal calcifications again noted. Age-related volume loss. Osseous calvarium grossly intact. Mild soft tissue edema or contusion in the left frontal scalp. Cervical spine: Multilevel degenerative disc disease and spondylosis. No acute compression deformity or gross malalignment of cervical vertebral bodies. No acute fracture. No acute, osseous central spinal canal encroachment. Paraspinal soft tissues grossly unremarkable. IMPRESSION: 1. No acute intracranial findings. Chronic ischemic and atrophic changes. 2. No acute compression deformity or apparent fracture in the cervical spine. Degenerative spondylosis. Report Dictated on Workstation: [facility]IS --- Final --- Dictated: 11/03/2019 4:33 pm Dictating Physician: MD MARINELLI WENDELL Signed Date and Time: 11/03/2019 4:39 pm Signed by: MD MARINELLI WENDELL Transcribed Date and Time: 11/03/2019 4:33 [facility] Work Phone: CT Head WO ContrastOrdered B y: Jack Bhatti on 11-03-2019 Patient Name: JAZMIN JOHNSON ---CT--- Exam Date/Time 11/03/2019 16:16:[address] Head or Brain w/o Contrast Ordering Physician JACK BHATTI Accession Number [id number] CPT4 Codes 36487 () Reason For Exam fall, head injury, syncope Report CT BRAIN AND CERVICAL SPINE WITHOUT CONTRAST CLINICAL INDICATION: fall, head injury, syncope TECHNIQUE: CT scan of the brain and cervical spine without IV contrast. Multiplanar reformations. COMPARISON: October,. FINDINGS: Brain: No parenchymal mass, mass effect, hemorrhage, midline shift or hydrocephalus. No evidence of acute cortical infarct. No abnormal, extra-axial fluid or air collection. Mild low density in the periventricular and subcortical white matter is nonspecific, but may relate to chronic small vessel ischemic change. Bilateral basal calcifications again noted. Age-related volume loss. Osseous calvarium grossly intact. Mild soft tissue edema or contusion in the left frontal scalp. Cervical spine: Multilevel degenerative disc disease and spondylosis. No acute compression deformity or gross malalignment of cervical vertebral bodies. No acute fracture. No acute, osseous central spinal canal encroachment. Paraspinal soft tissues grossly unremarkable. IMPRESSION: 1. No acute intracranial findings. Chronic ischemic and atrophic changes. 2. No acute compression deformity or apparent fracture in the cervical spine. Degenerative spondylosis. Report Dictated on Workstation: AMARILIS --- Final --- Dictated: 11/03/2019 4:33 pm Dictating Physician: MD MARINELLI WENDELL Signed Date and Time: 11/03/2019 4:39 pm Signed by: MD MARINELLI WENDELL Transcribed Date and Time: 11/03/2019 4:33 [facility] Work Phone: [place], [facility]coming [facility] Results From [facility] - 11/03/2019 4:41 PM EST Patient Name: JAZMIN JOHNSON ---CT--- Exam Date/Time 11/03/2019 16:16:[address] Head or Brain w/o Contrast Ordering Physician JACK BHATTI Accession Number [id number] CPT4 Codes 74743 () Reason For Exam fall, head injury, syncope Report CT BRAIN AND CERVICAL SPINE WITHOUT CONTRAST CLINICAL INDICATION: fall, head injury, syncope TECHNIQUE: CT scan of the brain and cervical spine without IV contrast. Multiplanar reformations. COMPARISON: October,. FINDINGS: Brain: No parenchymal mass, mass effect, hemorrhage, midline shift or hydrocephalus. No evidence of acute cortical infarct. No abnormal, extra-axial fluid or air collection. Mild low density in the periventricular and subcortical white matter is nonspecific, but may relate to chronic small vessel ischemic change. Bilateral basal calcifications again noted. Age-related volume loss. Osseous calvarium grossly intact. Mild soft tissue edema or contusion in the left frontal scalp. Cervical spine: Multilevel degenerative disc disease and spondylosis. No acute compression deformity or gross malalignment of cervical vertebral bodies. No acute fracture. No acute, osseous central spinal canal encroachment. Paraspinal soft tissues grossly unremarkable. IMPRESSION: 1. No acute intracranial findings. Chronic ischemic and atrophic changes. 2. No acute compression deformity or apparent fracture in the cervical spine. Degenerative spondylosis. Report Dictated on Workstation: AMARILIS --- Final --- Dictated: 11/03/2019 4:33 pm Dictating Physician: MD MARINELLI WENDELL Signed Date and Time: 11/03/2019 4:39 pm Signed by: MD MARINELLI WENDELL Transcribed Date and Time: 11/03/2019 4:33 [facility] Work Phone: [phone] EthanolOrdered By: Jack roberson on 11-03-2019 Ethanol Lvl 0.372 g/dL Critically high 0 - 0.01 g/dL [facility] [employer] Work Phone: [phone] Comment on above: NOTE: This result is for medical treatment only. Analysis performed using non-forensic procedures. Interpretation and review of laboratory results Abnormal [facility] Work Phone: [phone] Hemogram (CBC) w/Auto DiffOr dered By: Jack Bhatti on 11-03-2019 Absolute Baso # 0.1 10*3/uL 0 - 0.2 10*3/uL [facility] Work Phone: [phone] Absolute Neut # 2.1 10*3/uL 1.8 - 7 10*3/uL [facility] Work Phone: 1 Basophils/100 WBC (Bld) 1.4 % 0 - 2 % [employer] Work Phone: 1 Eosinophils (Bld) [#/Vol] 0.0 10*3/uL 0 - 0.5 10*3/uL [facility] Work Phone: [phone] Eosinophils/100 WBC (Bld) 0.6 % Low 1 - 6 % [employer] Work Phone: Erythrocyte distribution width (RBC) [Ratio] 16.5 % High 11.5 - 14.5 % [employer] Work Phone: Granulocytes/100 WBC (Bld) 38.2 % Low 40 - 80 % [facility] Work Phone: 1 Hematocrit (Bld) [Volume fraction] 41.0 % 35 - 47 % [facility] Work Phone: [phone] Hemoglobin (Bld) [Mass/Vol] 13.7 g/dL 11.7 - 16 g/dL [facility] Work Phone: [phone] Interpretation and review of laboratory results Abnormal [employer] Work Phone: 1 Lymphocytes (Bld) [#/Vol] 2.7 10*3/uL 1 - 4.3 10*3/uL [facility] Work Phone: [phone] Lymphocytes/100 WBC (Bld) 50.5 % High 20 - 40 % [facility] Work Phone: 1 MCH (RBC) [Entitic mass] 33.3 pg 26 - 34 pg [employer] Work Phone: MCHC 33.4 % 32 - 36 % [facility] Work Phone: MCV (RBC) [Entitic vol] 99.6 fL High 79 - 98 fL [employer] Work Phone: Monocytes (Bld) [#/Vol] 0.5 10*3/uL 0 - 0.8 10*3/uL [employer] Work Phone: 1) Monocytes/100 WBC (Bld) 9.3 % 2 - 10 % [employer] Work Phone: Platelet mean volume (Bld) [Entitic vol] 8.3 fL 7.4 - 10.4 fL [facility] Work Phone: Platelets (Bld) [#/Vol] 238 10*3/uL 140 - 440 10*3/uL [employer] Work Phone: RBC (Bld) [#/Vol] 4.11 10*6/uL 3.8 - 5.2 10*6/uL [employer] Work Phone: WBC (Bld) [#/Vol] 5.4 10*3/uL 3.6 - 10.7 10*3/uL [facility] Work Phone: Test Performed by [employer] [address] [facility] Work Phone: Hepatic Function PanelOrdere d By: Jack Bhatti on 11-03-2019 Albumin [Mass/Vol] 4.0 g/dL 3.5 - 5 g/dL [facility] [employer] Work Phone: ALP [Catalytic activity/Vol] 55 U/L 38 - 126 U/L [facility] Work Phone: ALT [Catalytic activity/Vol] 28 U/L 13 - 69 U/L [facility] Work Phone: AST [Catalytic activity/Vol] 39 U/L 15 - 46 U/L [facility] Work Phone: [phone] Bilirubin [Mass/Vol] 0.3 mg/dL 0.2 - 1.3 mg/dL [facility] Work Phone: [phone] Bilirubin.indirect [Mass/Vol] 0.0 mg/dL 0 - 0.3 mg/dL [facility] Work Phone: [phone] Protein [Mass/Vol] 7.0 g/dL 6.3 - 8.2 g/dL [facility] Work Phone: [phone] MagnesiumOrdered By: Jack pandya on 11-03-2019 Magnesium [Mass/Vol] 1.9 mg/dL 1.6 - 2.3 mg/dL [facility] Work Phone: [phone] Panel InformationOrdered By: Jack Bhatti on 11-03-2019 Test Performed by [facility] [place] [address] [facility] Work Phone: [phone] Test Performed by [employer], [facility] [place] [address] [facility] Work Phone: [phone] Troponin y2Wkorpol By: Jack Bhatti on 11-03-2019 Troponin I.cardiac [Mass/Vol] ng/mL 0 - 0.034 ng/mL [facility] Work Phone: [phone] Comment on above: . Clinical Summary: HMSPatient IDon 05-14-2019 QCG [facility] - [employer] Work Phone: Office Visit: New - 1st visi t with practice, Rm: 105-14-2019 NEGATED: Highlighted rowTobacco smoking status NHIS current everyday smoker [facility] - [employer] 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) [employer] Work Phone: Glucose Meteron 09-04-2017 Glucose mass conc 73 mg/dL Normal 70-99 [facility] Comment on above: Result Comment: ANGY Moran OTIFIED Performed By: #### G LMET ####[address] [address] Glucose mass conc 83 mg/dL Normal 70-99 [facility] Comment on above: Result Comment: ANGY N OTIFIED Performed By: #### G LMET ####[place] [address] Vital Signs Date Time Vital Sign Value Performing Clinician Facility 12-27-2022 11:02-0400 SaO2% (BldA) [Mass fraction] 97 % [facility] Comment on above: Order Comment: Speci men Type: ARTERIAL BLOOD SPECIMENOrdering Facility: [facility] Address: [address] [place] [address] Performed By: #### A LLBG ####[facility] [id number] [address] 12-26-2022 11:02-0400 SaO2% (BldA) [Mass fraction] 97 % [facility] Comment on above: Order Comment: Speci men Type: ARTERIAL BLOOD SPECIMENOrdering Facility: [facility] Address: [address] [place] [address] Performed By: #### A LLBG ####[facility] [id number] [address] 12-18-2022 08:00-0500 Body temperature 99.8 [degF] Dr. Khai Palacios Work Phone: [facility] 12-18-2022 08:00-0500 Diastolic blood pressure 71 mm[Hg] Dr. Khai Palacios Work Phone: [facility] 12-18-2022 08:00-0500 Heart rate 99 /min Dr. Khai Palacios Work Phone: [facility] 12-18-2022 08:00-0500 Inhaled oxygen concentration 30 % Dr. Khai Palacios Work Phone: [facility] 12-18-2022 08:00-0500 Respiratory rate 18 /min Dr. Khai Palacios Work Phone: [facility] 12-18-2022 08:00-0500 SaO2% (BldA) [Mass fraction] 97 % Dr. Khai Palacios Work Phone: [facility] 12-18-2022 08:00-0500 Systolic blood pressure 144 mm[Hg] Dr. Khai Palacios Work Phone: [facility] 12-18-2022 03:57-0500 Body mass index (BMI) [Ratio] 28.5 kg/m2 Dr. Khai Palacios Work Phone: [facility] 12-18-2022 03:57-0500 Body weight 73.[address] Khai Palacios Work Phone: [facility] 12-17-2022 10:09-0500 Body height 160.[address] Khai Palacios Work Phone: [facility] 12-17-2022 07:00-0500 Inhaled oxygen flow rate 30 L/min Dr. Khai Palacios Work Phone: [facility] 12-16-2022 18:00-0500 Diastolic blood pressure 106 mm[Hg] [facility] 12-16-2022 18:00-0500 Heart rate 101 /min [facility] 12-16-2022 18:00-0500 Inhaled oxygen flow rate 2 L/min [facility] 12-16-2022 18:00-0500 Respiratory rate 22 /min [facility] 12-16-2022 18:00-0500 SaO2% (BldA) [Mass fraction] 98 % [facility] 12-16-2022 18:00-0500 Systolic blood pressure 169 mm[Hg] [facility] 12-16-2022 17:50-0500 Body temperature 97.8 [degF] [facility] 12-16-2022 15:45-0500 Body height 160.02 cm [facility] 12-16-2022 15:45-0500 Body mass index (BMI) [Ratio] 27.9 kg/m2 [facility] 12-16-2022 15:45-0500 Body weight 71.5 kg [facility] 09-14-2022 15:27-0500 Body temperature 97.2 [degF] [facility] 09-14-2022 15:27-0500 Diastolic blood pressure 87 mm[Hg] [facility] 09-14-2022 15:27-0500 Heart rate 89 /min [facility] 09-14-2022 15:27-0500 Respiratory rate 13 /min [facility] 09-14-2022 15:27-0500 SaO2% (BldA) [Mass fraction] 95 % [facility] 09-14-2022 15:27-0500 Systolic blood pressure 111 mm[Hg] [facility] 09-14-2022 13:48-0500 Body height 160.02 cm [facility] Work Phone: 09-14-2022 13:48-0500 Body mass index (BMI) [Ratio] 28.5 kg/m2 [facility] 09-14-2022 13:48-0500 Body weight 73.1 kg [facility] 04-27-2022 11:37-0400 Diastolic blood pressure 90 mm[Hg] Dr. Khai Palacios Work Phone: [facility] Work Phone: 04-27-2022 11:37-0400 Heart rate 98 /min Dr. Khai Palacios Work Phone: [facility] Work Phone: 04-27-2022 11:37-0400 Respiratory rate 18 /min Dr. Khai Palacios Work Phone: [facility] Work Phone: 04-27-2022 11:37-0400 SaO2% (BldA) [Mass fraction] 96 % Dr. Khai Palacios Work Phone: [facility] Work Phone: 04-27-2022 11:37-0400 Systolic blood pressure 145 mm[Hg] Dr. Khai Palacios Work Phone: [facility] Work Phone: 04-27-2022 09:38-0400 Body height 170.[address] Khai Palacios Work Phone: [facility] Work Phone: 04-27-2022 09:38-0400 Body mass index (BMI) [Ratio] 24.7 kg/m2 Dr. Khai Palacios Work Phone: [facility] Work Phone: 04-27-2022 09:38-0400 Body temperature 97.2 [degF] Dr. Khai Palacios Work Phone: [facility] Work Phone: 04-27-2022 09:38-0400 Body weight 71.[address] Khai Palacios Work Phone: [facility] Work Phone: 02-06-2022 14:49-0400 Body temperature 97.9 [degF] Dr. Khai Palacios Work Phone: [facility] Work Phone: 02-06-2022 14:49-0400 Diastolic blood pressure 82 mm[Hg] Dr. Khai Palacios Work Phone: [facility] Work Phone: 02-06-2022 14:49-0400 Heart rate 75 /min Dr. Khai Palacios Work Phone: [facility] Work Phone: 02-06-2022 14:49-0400 Respiratory rate 16 /min Dr. Khai Palacios Work Phone: [facility] Work Phone: 02-06-2022 14:49-0400 SaO2% (BldA) [Mass fraction] 97 % Dr. Khai Palacios Work Phone: [facility] Work Phone: 02-06-2022 14:49-0400 Systolic blood pressure 127 mm[Hg] Dr. Khai Palacios Work Phone: [facility] Work Phone: 02-05-2022 16:45-0400 Body height 162.[address] Khai Palacios Work Phone: [facility] Work Phone: 02-05-2022 16:45-0400 Body mass index (BMI) [Ratio] 23.5 kg/m2 Dr. Khai Palacios Work Phone: [facility] Work Phone: 02-05-2022 16:45-0400 Body weight 62.[address] Khia Palacios Work Phone: [facility] Work Phone: 03-17-2021 10:50-0400 Respiratory rate 16 /min Shin Wolf DO Work Phone: [facility] 03-17-2021 07:26-0400 Body temperature 97.59 [degF] Shin Bloom DO Work Phone: [facility] 03-17-2021 07:26-0400 Diastolic blood pressure 74 mm[Hg] Shin Bloom DO Work Phone: [facility] 03-17-2021 07:26-0400 Heart rate 90 /min Shin Wolf DO Work Phone: [facility] 03-17-2021 07:26-0400 SaO2% (BldA) [Mass fraction] 93 % Shin Wolf DO Work Phone: [facility] 03-17-2021 07:26-0400 Systolic blood pressure 108 mm[Hg] Shin Bloom DO Work Phone: [facility] 03-11-2021 02:25-0400 Body height 167.6 cm Shin Wolf DO Work Phone: [facility] 03-11-2021 02:25-0400 Body mass index (BMI) [Ratio] 20.98 kg/m2 Shin Bloom DO Work Phone: [facility] 03-11-2021 02:25-0400 Body weight 58.97 kg Shin Bloom DO Work Phone: [facility] 05-08-2021 11:03-0400 Body temperature 98.2 [degF] Arpit Buchanan MD Work Phone: [facility] Work Phone: 02-18-2021 11:03-0400 Diastolic blood pressure 92 mm[Hg] Arpit Buchanan MD Work Phone: [facility] Work Phone: 02-18-2021 11:03-0400 Heart rate 103 /min Arpit Buchanan MD Work Phone: [facility] Work Phone: 02-18-2021 11:03-0400 Respiratory rate 18 /min Arpit Buchanan MD Work Phone: [facility] Work Phone: 02-18-2021 11:03-0400 SaO2% (BldA) [Mass fraction] 96 % Arpit Buchanan MD Work Phone: [facility] Work Phone: 02-18-2021 11:03-0400 Systolic blood pressure 142 mm[Hg] rApit uBchanan MD Work Phone: [facility] Work Phone: 02-15-2021 11:36-0400 Body height 152.4 cm Arpit Buchanan MD Work Phone: [facility] Work Phone: 02-15-2021 11:36-0400 Body mass index (BMI) [Ratio] 24.41 kg/m2 Arpit Buchanan MD Work Phone: [facility] Work Phone: 02-15-2021 11:36-0400 Body weight 56.7 kg Arpit Buchanan MD Work Phone: [facility] Work Phone: 01-15-2021 08:30-0400 Body Temperature 96.1 [degF] [facility] [employer] Work Phone: 01-15-2021 08:30-0400 BP Diastolic 85 mm[Hg] [facility] [employer] Work Phone: 01-15-2021 08:30-0400 BP Systolic 132 mm[Hg] Majorphilip Ricketts [facility] Work Phone: 01-15-2021 08:30-0400 Pulse Oximetry 97 % [facility] Work Phone: 01-15-2021 08:30-0400 Respiratory Rate 16 /min [facility] Work Phone: 01-14-2021 20:45-0400 Pulse (Heart Rate) 99 /min [facility] Work Phone: 01-14-2021 04:00-0400 BMI (Body Mass Index) 22.78 kg/m2 [facility] Work Phone: 01-14-2021 04:00-0400 Body weight 60.2 kg Majorphilip Ricketts [facility] Work Phone: 01-13-2021 21:00-0400 Height 162.6 cm [facility] Work Phone: 12-29-2020 07:39-0400 BP Diastolic 58 mm[Hg] Dario Tilley [employer] Work Phone: 12-29-2020 07:39-0400 BP Systolic 113 mm[Hg] Dario Tilley [employer] Work Phone: 12-29-2020 07:39-0400 Pulse (Heart Rate) 118 /min Dario Tilley [employer] Work Phone: 12-29-2020 07:31-0400 Body Temperature 98.2 [degF] Dario Tilley [employer] Work Phone: 12-29-2020 07:31-0400 Pulse Oximetry 96 % Dario Tilley [employer] Work Phone: 12-29-2020 07:31-0400 Respiratory Rate 18 /min Dario Tilley [employer] Work Phone: 12-12-2020 12:38-0500 BMI (Body Mass Index) 21.97 kg/m2 Dario MÁRQUEZ Work Phone: 12-12-2020 12:38-0500 Body weight 58.06 kg Dario MÁRQUEZ Work Phone: 12-12-2020 12:38-0500 Height 162.6 cm Dario MÁRQUEZ Work Phone: 10-24-2020 11:53-0500 Body Temperature 98.01 [degF] Jack KayNavidog [facility] 10-24-2020 11:53-0500 BP Diastolic 79 mm[Hg] [facility] [place] 10-24-2020 11:53-0500 BP Systolic 121 mm[Hg] [facility] [place] 10-24-2020 11:53-0500 Pulse (Heart Rate) 93 /min [facility] [place] 10-24-2020 11:53-0500 Pulse Oximetry 95 % [facility] [place] 10-24-2020 11:53-0500 Respiratory Rate 16 /min Jack Davy [facility] [place] 10-21-2020 06:00-0500 BMI (Body Mass Index) 22.23 kg/m2 Jack Bhatti [employer] [facility] 10-21-2020 06:00-0500 Body weight 58.74 kg Jack Kayowski [facility] 10-20-2020 09:20-0500 Height 162.6 cm Jack Kayowski [facility] 06-08-2020 16:17-0400 Body weight 59.88 kg Silvana Somers [facility] 06-08-2020 16:17-0400 Height 162.6 cm Silvana Somers [facility] 11-03-2019 15:22-0500 Body height 160 cm Jack Bhatti MD Work Phone: [facility] Work Phone: 11-03-2019 15:22-0500 Body mass index (BMI) [Ratio] 21.26 kg/m2 Jack Bhatti MD Work Phone: [facility] Work Phone: 11-03-2019 15:22-0500 Body temperature 98.4 [degF] Jack Bhatti MD Work Phone: [facility] Work Phone: 11-03-2019 15:22-0500 Body weight 54.43 kg Jack Bhatti MD Work Phone: [facility] Work Phone: 11-03-2019 15:22-0500 Diastolic blood pressure 80 mm[Hg] Jack Bhatti MD Work Phone: [facility] Work Phone: 11-03-2019 15:22-0500 Heart rate 112 /min Jack Bhatti MD Work Phone: [facility] Work Phone: 11-03-2019 15:22-0500 Respiratory rate 18 /min Jack Bhatti MD Work Phone: [facility] Work Phone: 11-03-2019 15:22-0500 SaO2% (BldA) [Mass fraction] 97 % Jack Bhatti MD Work Phone: [facility] Work Phone: 11-03-2019 15:22-0500 Systolic blood pressure 136 mm[Hg] Jack Bhatti MD Work Phone: [facility] Work Phone: NEGATED: Highlighted [id number] 14:00-0400 BMI (Body Mass Index) 24.85 kg/m2 Vanesa Maribel CRUISE COORDINATOR [facility] Work Phone: NEGATED: Highlighted [id number] 14:00-0400 Body weight 64.41 kg Vanesa Maribel CRUISE COORDINATOR [facility] Work Phone: NEGATED: Highlighted [id number] 14:00-0400 Body weight 65 kg Vanesa Maribel CRUISE COORDINATOR [facility] Work Phone: NEGATED: Highlighted [id number] 14:00-0400 BP Diastolic 74 mm[Hg] Vanesa Maribel CRUISE COORDINATOR [facility] Work Phone: NEGATED: Highlighted [id number] 14:00-0400 BP Systolic 123 mm[Hg] Vanesa Maribel CRUISE COORDINATOR [facility] Work Phone: NEGATED: Highlighted [id number] 14:00-0400 Heart rate 2+ Vanesa Maribel CRUISE COORDINATOR [facility] Work Phone: NEGATED: Highlighted [id number] 14:00-0400 Heart rate Vanesa Maribel CRUISE COORDINATOR [facility] Work Phone: NEGATED: Highlighted [id number] 14:00-0400 Height 161.29 cm Vanesa Maribel CRUISE COORDINATOR [facility] Work Phone: NEGATED: Highlighted [id number] 14:00-0400 Height 161 cm Vanesa Maribel CRUISE COORDINATOR [facility] Work Phone: NEGATED: Highlighted [id number] 14:00-0400 Pulse (Heart Rate) 116 /min Vanesa Maribel CRUISE COORDINATOR [facility] Work Phone: Encounters Encounter Date Encounter Type Care Provider Facility Start: 12-01-2024 ambulatory [facility] Facility[facility] Start: 08-02-2023 End: 08-02-2023 AMB External Visit KENZIE FERRER MD [facility] Start: 05-03-2023 End: 05-03-2023 ambulatory [facility] Work Phone: Start: 05-03-2023 End: 05-03-2023 Departed Referred [facility] Start: 03-18-2023 End: 03-18-2023 Departed Referred [facility] Start: 02-25-2023 End: 02-25-2023 Departed Referred [facility] Start: 02-14-2023 End: 02-14-[address] Khai Palacios Work Phone: [facility] Work Phone: Start: 02-14-2023 End: 02-14-[address] Khai Palacios Work Phone: [facility] Start: 01-23-[address] Khai palacios Work Phone: [facility] Start: 01-16-[address] Khai palacios Work Phone: [facility] Start: 01-10-[address] Khai palacios Work Phone: [facility] Start: 12-18-2022 Non-patient / Non-visit Dr. Khai Palacios Work Phone: [facility] Start: 12-18-2022 ambulatory Germaine RESENDEZ RN.[facility] [facility] [employer] Work Phone: Critical Care Start: 12-18-2022 End: 01-09-2023 Evaluation and management of inpatient DHIMANT ROGELIO Facility:[facility] Start: 12-17-2022 Non-patient / Non-visit Dr. Khai Palacios Work Phone: [facility] Start: 12-17-2022 Non-patient / Non-visit Dr. Khai Palacios Work Phone: [facility] Start: 12-17-2022 Non-patient / Non-visit Dr. Khai Palacios Work Phone: [facility] Start: 12-16-2022 End: 12-16-2022 Non-patient / Non-visit Dr. Khai Palacios Work Phone: [facility] Start: 12-16-2022 End: 12-18-2022 Evaluation and management of inpatient [facility]Int[facility] Start: 12-16-2022 Non-patient / Non-visit Dr. Khai Palacios Work Phone: [facility] Start: 12-12-2022 End: 12-12-[address] Khai Palacios Work Phone: [facility] Work Phone: Start: 12-12-2022 End: 12-12-2022 Patient encounter procedure [facility]-Laboratory, Phy Office 3rd Flr Start: 09-19-2022 Telephone encounter Jw fleming MD Work Phone: Neurology Comment on above: Appointment Start: 09-14-2022 End: 09-27-2022 Evaluation and management of inpatient [facility] Facility:[facility] Start: 09-14-2022 End: 09-14-2022 Emergency department patient visit [facility] Start: 04-27-2022 End: 04-27-2022 Emergency department patient visit Dr. Khai Palacios Work Phone: [facility] Start: 02-06-2022 Non-patient / Non-visit Dr. Khai Palacios Work Phone: [facility] Start: 02-05-2022 End: 02-06-2022 Evaluation and management of inpatient [facility]. Khai Palacios [facility] Start: 03-11-2021 End: 03-17-2021 [facility] Start: 03-11-2021 End: 03-17-2021 Emergency department patient visit Shin Bloom DO Work Phone: [facility] Surgical Unit 3 Start: 02-15-2021 End: 02-18-2021 Emergency department patient visit Arpit Buchanan MD Work Phone: [facility] [employer] Comment on above: Altered mental statu s, unspecified altered mental status type (Primary Dx) Start: 01-27-2021 End: 01-28-2021 ambulatory UNKNOWN PROVIDER Facility:[facility] Start: 01-23-2021 End: 01-30-2021 Evaluation and management of inpatient VON VILLA Facility:[facility] Start: 01-13-2021 End: 01-15-2021 Evaluation and management of inpatient KHAI-LANDRY Larry [facility] Start: 01-13-2021 End: 01-15-2021 Evaluation and management of inpatient Major Ricketts Work Phone: [facility] Comment on above: Bilateral subdural h ematomas (HCC) (Primary Dx); Acute alcoholic intoxication with complication (HCC); Laceration of forehead, initial encounter Start: 12-12-2020 End: 12-29-2020 Evaluation and management of inpatient Dario Tilley Work Phone: [facility] Comment on above: Altered mental statu s, unspecified altered mental status type (Primary Dx); Brain mass; Hyponatremia Start: 10-19-2020 End: 10-24-2020 Evaluation and management of inpatient Jack Bhatti Work Phone: [facility] Comment on above: Intracranial bleed ( HCC) (Primary Dx); Closed head injury, initial encounter; Acute alcoholic intoxication without complication (HCC) Start: 06-08-2020 End: 06-08-2020 Patient encounter procedure Silvana Somers Work Phone: [employer] Comment on above: Gynecologic exam nor mal (Primary Dx); Cervical cancer screening; Breast screening; Screening for osteoporosis; Menopause; Vulvar lesion; Fecal occult blood test positive; Cystocele, midline Start: 06-08-2020 End: 06-08-2020 Letter encounter Silvana Somers Work Phone: [employer] Start: 11-03-2019 End: 11-03-2019 Emergency department patient visit Jack Bhatti MD Work Phone: [facility] Emergency Dept Comment on above: Acute alcoholic into xication without complication (HCC) (Primary Dx); Injury of head, initial encounter; Alcohol abuse Start: 05-14-2019 End: 05-15-2019 Patient encounter procedure Joe Song PA-C Work Phone: [facility] Work Phone: Start: 11-18-2017 Ambulatory KONG PATEL Facility:[facility] Start: 09-04-2017 End: 09-04-2017 Emergency department patient visit JACK NATHAN Facility:[facility] Procedures Date Procedure Procedure Detail Performing Clinician Start: 02-25-2023 Urine culture Start: 12-20-2022 Echocardiography LINNEA MERCADO Start: 12-18-2022 Antibody screen JENNYFER MERCADO Comment on above: Order Comment: Speci men Type: BLOOD SPECIMENOrdering Facility: [facility] Address: [address] [place] [address] Performed By: #### T SCR, DAGT ####[facility] B[facility] BANKCLIA [id number] [address] Start: 12-17-2022 CT of head without contrast Dr. Khai Palacios Work Phone: Start: 12-17-[address] Khai rubio Work Phone: Start: 12-16-2022 Plain X-ray abdomen Dr. Khai Palacios Work Phone: Start: 12-16-2022 Plain chest X-ray Dr. Susan Palacios Work Phone: Start: 12-16-2022 Plain chest X-ray Start: 12-16-2022 CT of head without contrast Start: 09-14-2022 Antibody screen JENNYFER MERCADO Comment on above: Order Comment: Speci men Type: BLOOD SPECIMENOrdering Facility: [facility] Address: [address] [place] [address] Performed By: #### T SCR ####[facility]CL[facility] [id number] [address] Start: 09-14-2022 CT cervical spine wi thout contrast Start: 09-14-2022 CT of head without contrast Start: 04-27-2022 CT of head without contrast Dr. Khai Palacios Work Phone: Start: 04-27-2022 Plain chest X-ray Dr. Susan Palacios Work Phone: Start: 02-05-2022 Plain chest X-ray Dr. Susan Palacios Work Phone: Start: 02-05-2022 CT of head without contrast Dr. Khai Palacios Work Phone: Start: 03-15-2021 Basic metabolic pane l calcium total Blaise Aponte MD Work Phone: Start: 03-14-2021 Basic metabolic pane l calcium total Blaise Aponte MD Work Phone: Start: 03-11-2021 Ecg routine ecg w/le ast 12 lds trcg only w/o i&r Norah Basurto DO Work Phone: Start: 03-11-2021 SARS-CoV-2 (COVID-19 ) RNA [Presence] in Respiratory specimen by CY with probe detection Shin Bloom DO Work Phone: Start: 03-11-2021 Drug tst prsmv instr mnt chem analyzers pr date Beatriz Sales PA-C Work Phone: Start: 03-11-2021 Urnls dip stick/tabl et reagent auto microscopy Beatriz Sales PA-C Work Phone: Start: 03-11-2021 Acetaminophen blood measurement Beatriz Sales PA-C Work Phone: Start: 03-11-2021 Basic metabolic pane l calcium total Beatriz Sales PA-C Work Phone: Start: 03-11-2021 Blood ethanol measurement Beatriz Sales PA-C Work Phone: Start: 03-11-2021 VIVAS TOP Shin Bloom DO Work Phone: Start: 03-11-2021 LIGHT BLUE TOP Shin Hall Wolf DO Work Phone: Start: 03-11-2021 LIGHT GREEN TOP Shin Hall Wolf DO Work Phone: Start: 03-11-2021 [facility] DRUG SCREEN, BLOOD Sheila Pat Freedman DO Work Phone: Start: 03-11-2021 PINK TOP Shin Mayorga maritzarroy Wolf DO Work Phone: Start: 03-11-2021 RAINBOW DRAW Shin Mayorga maritzarory Wolf DO Work Phone: Start: 03-11-2021 Salicylate blood measurement Beatriz Sales PA-C Work Phone: Start: 03-11-2021 Ct head/brain w/o contrast material Beatriz Sales PA-C Work Phone: Start: 02-18-2021 Assay of magnesium Asim Castillo MD Work Phone: Start: 02-18-2021 Assay of magnesium Asim Castillo MD Work Phone: Start: 02-18-2021 BASIC METABOLIC PANE L W/ REFLEX TO MG FOR LOW K Rafael Castillo MD Work Phone: Start: 02-17-2021 Mri brain brain stem w/o contrast material Rafael Castillo MD Work Phone: Start: 02-17-2021 BASIC METABOLIC PANE L W/ REFLEX TO MG FOR LOW K Rafael Castillo MD Work Phone: Start: 02-17-2021 Blood count complete automated Rafael Castillo MD Work Phone: Start: 02-16-2021 Basic metabolic pane l calcium total Frankie Sorensen MD Work Phone: Start: 02-16-2021 Lipid panel Frankie contreras MD Work Phone: Start: 02-16-2021 Drug screen class list a Rafael Castillo MD Work Phone: Start: 02-16-2021 Urnls dip stick/tabl et rgnt auto w/o microscopy Rafael Castillo MD Work Phone: Start: 02-16-2021 Hemoglobin glycosyla pepe a1c Rafael Castillo MD Work Phone: Start: 02-15-2021 Assay of ethanol Arpit Buchanan MD Work Phone: Start: 02-15-2021 ADD ON LAB TEST Arpit Buchanan MD Work Phone: Start: 02-15-2021 End: 02-15-2021 Ct angiography head w/contrast/noncontrast Arpit Buchanan MD Work Phone: Start: 02-15-2021 End: 02-15-2021 Gonadotropin chorionic qualitative Arpit Buchanan MD Work Phone: Start: 02-15-2021 Ecg routine ecg w/le ast 12 lds w/i&r Arpit Buchanan MD Work Phone: Start: 01-14-2021 Ct head/brain w/o contrast material Patti Lynn Start: 01-14-2021 Iadna s aureus methicillin resist amp probe tq Toño Tillman Work Phone: Start: 01-14-2021 Assay of magnesium Tric ia Leah Start: 01-14-2021 Assay of phosphorus inorganic Patti Leah Start: 01-14-2021 Basic metabolic pane l calcium total Patti Leah Start: 01-14-2021 Blood count complete auto&auto difrntl wbc Patti Leah Start: 01-14-2021 Speech and language therapy regime Patti Lynn Start: 01-14-2021 CT LUMBAR SPINE TRAU MA RECONSTRUCTION Patti Leah Start: 01-14-2021 CT THORACIC SPINE TR AUMA RECONSTRUCTION Patti Leah Start: 01-14-2021 Ct thorax w/contrast material Patti Leah Start: 01-13-2021 COVID-19, RAPID Major Ricketts Work Phone: Start: 01-13-2021 Ct cervical spine w/ o contrast material Major Ricketts Work Phone: Start: 01-13-2021 Assay of ethanol Major Ricketts Work Phone: Start: 01-13-2021 BASIC METABOLIC PANE L W/ REFLEX TO MG FOR LOW K Major Ricketts Work Phone: Start: 01-13-2021 Blood count complete auto&auto difrntl wbc Major Ricketts Work Phone: Start: 01-13-2021 Hepatic function panel Major Ricketts Work Phone: Start: 01-13-2021 Prothrombin time Major Ricketts Work Phone: Start: 01-13-2021 Thromboplastin time partial plasma/whole blood Major Ricketts Work Phone: Start: 01-13-2021 Ct head/brain w/o contrast material Major Ricketts Work Phone: Start: 12-29-2020 Basic metabolic pane l calcium total Rah Johnathan Work Phone: Start: 12-28-2020 Basic metabolic pane l calcium total Rah Johnathan Work Phone: Start: 12-26-2020 COVID-19 Frankei Jacob La mela Work Phone: Start: 12-25-2020 Basic metabolic pane l calcium total Emeterio Concepción Work Phone: Start: 12-24-2020 Basic metabolic pane l calcium total Leland Ish Work Phone: Start: 12-20-2020 COVID-19 Leland patel Work Phone: Start: 12-19-2020 Sodium serum plasma or whole blood Endy Hooveravanan Work Phone: Start: 12-18-2020 Basic metabolic pane l calcium total Rah Johnathan Work Phone: Start: 12-17-2020 Basic metabolic pane l calcium total Endy Mauricio Work Phone: Start: 12-16-2020 Assay of magnesium Hirak delbert Mauricio Work Phone: Start: 12-16-2020 Assay of osmolality blood Endy Mauricio Work Phone: Start: 12-16-2020 Basic metabolic pane l calcium total Endy Mauricio Work Phone: Start: 12-15-2020 Basic metabolic pane l calcium total Chirag Q Acosta Work Phone: Start: 12-15-2020 Assay of osmolality urine Endy Mauricio Work Phone: Start: 12-15-2020 Assay of urine sodium V inh Q Acosta Work Phone: Start: 12-15-2020 Assay of magnesium Maxine Mauricio Work Phone: Start: 12-15-2020 Basic metabolic pane l calcium total Endy Mauricio Work Phone: Start: 12-14-2020 Acute hepatitis panel V jorge Mauricio Work Phone: Start: 12-14-2020 Assay of folic acid serum Endy Hang Work Phone: Start: 12-14-2020 Assay of magnesium Maxine Mauricio Work Phone: Start: 12-14-2020 Blood count complete auto&auto difrntl wbc Endy Mauricio Work Phone: Start: 12-14-2020 Comprehensive metabo lic panel Endy Hang Work Phone: Start: 12-13-2020 Mri brain brain stem w/o contrast material Robert Vernon Work Phone: Start: 12-13-2020 Radiologic exam abdo men 1 view Inderpartap S Phangureh Work Phone: Start: 12-13-2020 Blood count complete auto&auto difrntl wbc Robert Vernon Work Phone: Start: 12-12-2020 Drug screen class list a Dario Tilley Work Phone: Start: 12-12-2020 Urnls dip stick/tabl et rgnt auto w/o microscopy Jack Machuca Work Phone: Start: 12-12-2020 Ct head/brain w/o contrast material Jack Machuca Work Phone: Start: 12-12-2020 Radiologic exam ches t single view Jack Machuca Work Phone: Start: 12-12-2020 Assay of ammonia Jack Machuca Work Phone: Start: 12-12-2020 COVID-19 Jack Jacob Sharri parker Work Phone: Start: 12-12-2020 ADD ON LAB TEST Dario Tilley Work Phone: Start: 12-12-2020 Ecg routine ecg w/le ast 12 lds w/i&r Jack Machuca Work Phone: Start: 12-12-2020 Assay of ethanol Dario Tilley Work Phone: Start: 12-12-2020 Assay of free thyroxine Dario Tilley Work Phone: Start: 12-12-2020 Assay of magnesium Aust madhavi Tilley Work Phone: Start: 12-12-2020 Assay of thyroid stimulating hormone tsh Dario Tilley Work Phone: Start: 12-12-2020 Assay of troponin quantitative Dario Tilley Work Phone: Start: 12-12-2020 Blood count complete auto&auto difrntl wbc Dario Tilley Work Phone: Start: 12-12-2020 Blood gases any combination ph pco2 po2 co2 hco3 Dario Tilley Work Phone: Start: 12-12-2020 Comprehensive metabo lic panel Dario Tilley Work Phone: Start: 12-12-2020 Culture bacterial quanttative colony count urine Dario Tilley Work Phone: Start: 12-12-2020 Cyanocobalamin vitam in b-12 Dario Tilley Work Phone: Start: 10-24-2020 Basic metabolic pane l calcium total Germaine Ruben Woods Work Phone: Start: 10-23-2020 Basic metabolic pane l calcium total Germaine Ruben Woods Work Phone: Start: 10-22-2020 Assay of magnesium Jord janet Rosenberg Work Phone: Start: 10-22-2020 Basic metabolic pane l calcium total Galdino Rosenberg Work Phone: Start: 10-21-2020 Assay of magnesium Jord janet Rosenberg Work Phone: Start: 10-21-2020 Basic metabolic pane l calcium total Galdino Rosenberg Work Phone: Start: 10-21-2020 Blood count complete auto&auto difrntl wbc Jose Alberto Garland Work Phone: Start: 10-21-2020 Ct head/brain w/o contrast material Jaja Albert Work Phone: Start: 10-20-2020 Radex elbow 2 views Trace in R Trinidad Work Phone: Start: 10-20-2020 Ct angiography head w/contrast/noncontrast Jaja Albert Work Phone: Start: 10-20-2020 Ct head/brain w/o contrast material Jose Alberto Garland Work Phone: Start: 10-20-2020 Drug screen class list a Alejandro Aguilar Work Phone: Start: 10-20-2020 Urnls dip stick/tabl et rgnt auto w/o microscopy Alejandro Aguilar Work Phone: Start: 10-20-2020 Assay of magnesium Nadir Garland Work Phone: Start: 10-20-2020 BASIC METABOLIC PANE L W/ REFLEX TO MG FOR LOW K Jose Alberto Garland Work Phone: Start: 10-20-2020 Blood count complete auto&auto difrntl wbc Jose Alberto Garland Work Phone: Start: 10-20-2020 Hepatic function panel Jose Alberto Garland Work Phone: Start: 10-19-2020 Assay of ethanol Jose Alberto Garland Work Phone: Start: 10-19-2020 Prothrombin time Jose Alberto Garland Work Phone: Start: 10-19-2020 Thromboplastin time partial plasma/whole blood Jose Alberto Garland Work Phone: Start: 10-19-2020 Speech and language therapy regime Galdino Rosenberg Work Phone: Start: 10-19-2020 Ct head/brain w/o contrast material Alejandro Rikkik Work Phone: Start: 10-19-2020 CT Abdomen and Pelvi s W contrast IV Jack Bhatti Work Phone: Start: 10-19-2020 Ct cervical spine w/ o contrast material Alejandro Haverchak Work Phone: Start: 10-19-2020 Ct maxillofacial w/o contrast material Alejandro Haverchak Work Phone: Start: 10-19-2020 Ct thorax w/contrast material Jack D Davy Work Phone: Start: 10-19-2020 Assay of ammonia Alexan rabia Havenavak Work Phone: Start: 10-19-2020 Assay of ethanol Alexan rabia Haverchak Work Phone: Start: 10-19-2020 Assay of troponin quantitative Alejandro Haverchak Work Phone: Start: 10-19-2020 Basic metabolic pane l calcium total Alejandro Aguilar Work Phone: Start: 10-19-2020 Blood count complete auto&auto difrntl wbc Alejandro Aguilar Work Phone: Start: 10-19-2020 Creatine kinase total A mili Aguilar Work Phone: Start: 10-19-2020 Hepatic function panel Alejandro Aguilar Work Phone: Start: 10-19-2020 Ecg routine ecg w/le ast 12 lds w/i&r Alejandro Aguilar Work Phone: Start: 06-08-2020 Colonoscopy Jw fleming MD Work Phone: Start: 11-03-2019 Ct cervical spine w/ o contrast material Jack Bhatti MD Work Phone: Start: 11-03-2019 Ct head/brain w/o contrast material Jack Bhatti MD Work Phone: Start: 11-03-2019 Assay of ethanol Jack Bhatti MD Work Phone: Start: 11-03-2019 Basic metabolic pane l calcium total Jack Bhatti MD Work Phone: Start: 11-03-2019 Hepatic function panel Jack Bhatti MD Work Phone: Start: 11-03-2019 Ecg routine ecg w/le ast 12 lds w/i&r Jack Bhatti MD Work Phone: Start: 05-14-2019 End: 05-15-2019 Blood pressure within normal parameters - no follow-up required Joe Song PA-C Work Phone: Start: 05-14-2019 End: 05-15-2019 BMI documented within normal parameters - no follow-up plan is required Joe Song PA-C Work Phone: Start: 05-14-2019 End: 05-15-2019 Documentation of current medications Joe Song PA-C Work Phone: Start: 05-14-2019 End: 05-15-2019 Pain assessment documented as positive - no follow-up/reason not given Joe Song PA-C Work Phone: Start: 05-14-2019 End: 05-14-2019 POST-OP SHOE SQR TOE (BREG) Joe Lana PA-C Work Phone: Start: 05-14-2019 End: 05-15-2019 Pt tobacco screen rcvd tlk Joe Lana PA-C Work Phone: Start: 05-14-2019 End: 05-14-2019 Radex foot complete minimum 3 views Joe Song PA-C Work Phone: Start: 05-14-2019 End: 05-14-2019 Radiologic examination ankle 2 views Joe Ernstthiphil PA-Feedjit Work Phone: Bacteria identified in Blood by Culture Dr. Khai Palacios Work Phone: Investigation of transfusion reaction Dr. Khai Palacios Work Phone: Respiratory microbia l culture Dr. Khai Palacios Work Phone: Urine culture Dr. Khai Palacios Work Phone: NEGATED: Highlighted rowStart: 05-14-2019 End: 05-14-2019 Documentation of current medications Vanesa López LPN NEGATED: Highlighted rowStart: 05-14-2019 End: 05-14-2019 Smoking cessation education Vanesa López LPN Plan of Treatment Date Care Activity Detail Author Start: 12-18-2025 DIABETES SCREEN DIABETES SCREEN [facility] Start: 09-26-2025 DIABETES SCREEN DIABETES SCREEN [facility] Start: 12-22-2022 [facility] Start: 12-21-2022 [facility] Start: 12-20-2022 [facility] Start: 12-19-2022 [facility] Start: 12-18-2022 Patient discharge [facility] Start: 12-17-2022 Procedure [facility] Start: 12-17-2022 Consultation [facility] Start: 12-17-2022 Consultation [facility] Start: 12-16-2022 [facility] Start: 12-16-2022 Referral to service [facility] Start: 12-16-2022 Airway suction technique [facility] Start: 12-16-2022 Following clinical pathway protocol [facility] Start: 12-16-2022 Application of intermittent pneumatic compression device [facility] Start: 12-16-2022 Assessment of risk of venous thromboembolism [facility] Start: 12-16-2022 Care regimes management [facility] Start: 12-16-2022 Consultation for treatment [facility] Start: 12-16-2022 Continuous pulse oximetry [facility] Start: 12-16-2022 Documentation procedure [facility] Start: 12-16-2022 Insertion of catheter into peripheral vein [facility] Start: 12-16-2022 Measuring intake and output [facility] Start: 12-16-2022 Oxygen therapy [facility] Start: 12-16-2022 Patient referral to dietitian [facility] Start: 12-16-2022 Providing care according to standard [facility] Start: 12-16-2022 Referral to occupational therapist [facility] Start: 12-16-2022 Referral to service [facility] Start: 12-16-2022 Removal of urinary catheter [facility] Start: 12-16-2022 Tobacco use cessation education [facility] Start: 12-16-2022 Vital signs measurements [facility] Start: 12-16-2022 [facility] Start: 12-16-2022 Creatine kinase [Enzymatic activity/volume] in Serum or Plasma [facility] Start: 12-16-2022 Triglycerides measurement [facility] Start: 12-16-2022 Electrocardiographic procedure [facility] Start: 12-16-2022 Electroencephalogram [facility] Start: 12-16-2022 Plain chest X-ray Chest 1 View (Portable) [facility] Start: 12-16-2022 XR Chest Single view [facility] Start: 12-16-2022 Verification routine [facility] Start: 12-16-2022 Admission procedure [facility] Start: 12-16-2022 End: 12-16-2022 Blood culture [facility] Start: 12-16-2022 End: 12-16-2022 [facility] Start: 12-16-2022 Inhalation therapy procedure [facility] Start: 12-16-2022 Patient referral to dietitian [facility] Start: 12-16-2022 [facility] Start: 10-14-2022 ADVANCE DIRECTIVE DISCUSSION ADVANCE DIRECTIVE DISCUSSION [facility] Start: 10-14-2022 DEPRESSION ASSESSMENT DEPRESSION ASSESSMENT [facility] Start: 09-14-2022 Simple repair f/e/e/n/l/m 2.5cm/< RPR F/E/E/N/L/M 2.5 CM/< [facility] Start: 06-14-2022 Influenza vaccination INFLUENZA (#1) [facility] Start: 02-06-2022 Patient discharge [facility] Work Phone: Start: 02-05-2022 Aspiration precautions [facility] Work Phone: Start: 02-05-2022 Assessment of risk of venous thromboembolism [facility] Work Phone: Start: 02-05-2022 Fall prevention [facility] Work Phone: Start: 02-05-2022 Inhalation therapy procedure [facility] Work Phone: Start: 02-05-2022 Introduction of urinary catheter [facility] Work Phone: Start: 02-05-2022 Notification of physician [facility] Work Phone: Start: 02-05-2022 Oxygen therapy [facility] Work Phone: Start: 02-05-2022 Referral to service [facility] Work Phone: Start: 02-05-2022 Vital signs measurements [facility] Work Phone: Start: 02-05-2022 [facility] Work Phone: Start: 02-05-2022 Following clinical pathway protocol [facility] Work Phone: Start: 02-05-2022 Admission procedure [facility] Work Phone: Start: 06-14-[address] [facility] Work Phone: Start: 06-08-2021 Colonoscopy COLONOSCOPY [facility] Start: 06-08-2021 COLORECTAL CANCER SCREENING COLORECTAL CANCER SCREENING [facility] Start: 06-08-2021 Tuberculosis screening COLORECTAL CANCER SCREENING,SEE MODIFIER [facility] Start: 02-27-2021 End: 02-27-2021 Patient encounter procedure 02/27/2021 Office Visit Neurosurgery Kush Al MD [address] [place] [id number] [facility] Start: 01-28-2021 End: 01-14-2022 CT HEAD WO CONTRAST CT HEAD WO CONTRAST Imaging Routine Bilateral subdural hematomas (HCC) Expected: 01/28/2021, Expires: 01/14/2022 [facility] Work Phone: Comment on above: Expected: 01/28/2021, Expires: 2 Start: 11-13-2020 End: 10-23-2021 CT Head WO Contrast CT Head WO Contrast Imaging Routine Intracranial bleed (HCC) Expected: 11/13/2020, Expires: 10/23/2021 [place] Comment on above: Expected: 11/13/2020, Expires: 2 Start: 06-14-2020 Influenza vaccination [facility] Start: 11-14-2019 [facility] Well[facility]AWV[facility] Start: 10-05-2019 DIABETES SCREEN DIABETES SCREEN [facility] Start: 06-14-2019 Influenza vaccination Flu vaccine (#1) [employer] Phone: Start: 05-25-2019 End: 05-25-2019 Appointment Appointment [facility] Work Phone: Start: 03-10-2017 FECAL OCCULT BLOOD FECAL OCCULT BLOOD [facility] Start: 2016 ADVANCE DIRECTIVE DISCUSSION ADVANCE DIRECTIVE DISCUSSION [facility] Start: 2016 BONE DENSITY BONE DENSITY [facility] Start: 2016 DEXA (modify frequency per FRAX score) DEXA (modify frequency per FRAX score) [facility] Work Phone: Start: 2016 Fall risk assessment Falls Risk Assessment [facility] Start: 2016 Pneumococcal 65+ years Vaccine (1 of 1 - PPSV23) Pneumococcal 65+ years Vaccine (1 of 1 - PPSV23) [facility] Work Phone: Start: 2016 PNEUMOVAX AGE 65 AND OVER WITH 5YR LOOKBACK (#1) PNEUMOVAX AGE 65 AND OVER WITH 5YR LOOKBACK (#1) [facility] Start: 2006 Screening for osteoporosis DEXA (modify frequency per FRAX score) [facility] [place] Start: 2001 Administration of herpes zoster vaccine Zoster Vaccines (1 of 2) [facility] Start: 2001 Breast cancer screen Breast cancer screen [facility] Work Phone: Start: 2001 Colon cancer screen colonoscopy Colon cancer screen colonoscopy [facility] Work Phone: Start: 2001 Screening for malignant neoplasm of breast Breast cancer screen [place], [place] Start: 2001 Screening for malignant neoplasm of colon [place] Start: 2001 Shingles Vaccine (1 of 2) Shingles Vaccine (1 of 2) [facility] Work Phone: Start: 2001 SHINGRIX VACCINE (1 of 2) SHINGRIX VACCINE (1 of 2) [facility] Start: 1996 COLOGUARD (FIT-DNA) COLOGUARD (FIT-DNA) [facility] Start: [address] COLONOGRAPHY [facility] Start: 1996 LIPID SCREEN LIPID SCREEN [facility] Start: 1996 SIGMOIDOSCOPY SIGMOIDOSCOPY [facility] Start: 1991 Lipid screen Lipid screen [facility] Work Phone: Start: 1991 Mammography MAMMOGRAM [facility] Start: 1991 Screening mammography Mammogram [facility] Start: 1970 DTaP/Tdap/Td vaccine (1 - Tdap) DTaP/Tdap/Td vaccine (1 - Tdap) [place], [place] Start: 1970 Urine microalbumin profile DTAP,TDAP,TD (1 - Tdap) [facility] Start: 1969 ANNUAL PCP TEAM CHRONIC DISEASE VISIT ANNUAL PCP TEAM CHRONIC DISEASE VISIT [facility] Start: 1969 HEPATITIS C SCREENING HEPATITIS C SCREENING [facility] Start: 1969 Hepatitis C screening Hepatitis C Screening [facility] Start: 1967 COVID-19 Vaccine (1) COVID-19 Vaccine (1) [facility] Work Phone: Start: 1963 COVID-19 Vaccine (1) COVID-19 Vaccine (1) [facility] Start: 1963 Depression screening using PHQ-9 (Patient Health Questionnaire 9) score Depression Screening (PHQ9) [facility] Start: 1962 DTaP/Tdap/Td vaccine (1 - Tdap) DTaP/Tdap/Td vaccine (1 - Tdap) [facility] Work Phone: Start: 1961 Lipid panel Lipid screen [place], [place] Start: 1957 Pneumococcal Vaccine: Age 65+ (1 of 2 - PPSV23) Pneumococcal Vaccine: Age 65+ (1 of 2 - PPSV23) [facility] Start: 1957 PNEUMOCOCCAL: 65+ (1 - PCV) PNEUMOCOCCAL: 65+ (1 - PCV) [facility] Start: 1954 History and physical examination, annual for health maintenance Wellness Visit [facility] Start: 1951 COVID-19 VACCINE (#1) COVID-19 VACCINE (#1) [facility] Start: 1951 Hepatitis C screen Hepatitis C screen [facility] Work Phone: Start: 1951 Hepatitis C screening Hepatitis C screen [place], [place] Start: 1951 Screening for osteoporosis Dexa Scan [facility] Start: 1950 Tetanus vaccination Tetanus: Every 10yrs [facility] Alanine aminotransfe rase [Enzymatic activity/volume] in Serum or Plasma [facility] Alanine aminotransfe rase [Enzymatic activity/volume] in Serum or Plasma [facility] Alanine aminotransfe rase [Enzymatic activity/volume] in Serum or Plasma [facility] Alanine aminotransfe rase [Enzymatic activity/volume] in Serum or Plasma [facility] Albumin [Mass/volume ] in Serum or Plasma [facility] Albumin [Mass/volume ] in Serum or Plasma [facility] Albumin [Mass/volume ] in Serum or Plasma [facility] Albumin [Mass/volume ] in Serum or Plasma [facility] Alkaline phosphatase [Enzymatic activity/volume] in Serum or Plasma [facility] Alkaline phosphatase [Enzymatic activity/volume] in Serum or Plasma [facility] Alkaline phosphatase [Enzymatic activity/volume] in Serum or Plasma [facility] Alkaline phosphatase [Enzymatic activity/volume] in Serum or Plasma [facility] Anion gap measurement [facility] Anion gap measurement [facility] Anion gap measurement [facility] Anion gap measurement [facility] Aspartate aminotrans ferase [Enzymatic activity/volume] in Serum or Plasma [facility] Aspartate aminotrans ferase [Enzymatic activity/volume] in Serum or Plasma [facility] Aspartate aminotrans ferase [Enzymatic activity/volume] in Serum or Plasma [facility] Aspartate aminotrans ferase [Enzymatic activity/volume] in Serum or Plasma [facility] Bacteria identified in Blood by Culture Blood Culture [facility] Bacteria identified in Blood by Culture Blood Culture [facility] Bacteria identified in Urine by Culture Urine Culture [facility] Basic metabolic 2000 panel Basic Metabolic Panel Lab Routine Daily until discontinued starting 10/23/2020, 2 completed [place], [place] Comment on above: Daily until discontinued starting 2020, 2 completed Bilirubin, total measurement [facility] Bilirubin, total measurement [facility] Bilirubin, total measurement [facility] Bilirubin, total measurement [facility] BUN/Creatinine ratio [facility] BUN/Creatinine ratio [facility] BUN/Creatinine ratio [facility] BUN/Creatinine ratio [facility] Calcium [Mass/volume ] in Serum or Plasma [facility] Calcium [Mass/volume ] in Serum or Plasma [facility] Calcium [Mass/volume ] in Serum or Plasma [facility] Calcium [Mass/volume ] in Serum or Plasma [facility] Carbon dioxide, tota l [Moles/volume] in Serum or Plasma [facility] Carbon dioxide, tota l [Moles/volume] in Serum or Plasma [facility] Carbon dioxide, tota l [Moles/volume] in Serum or Plasma [facility] Carbon dioxide, tota l [Moles/volume] in Serum or Plasma [facility] Chloride [Moles/volu me] in Serum or Plasma [facility] Chloride [Moles/volu me] in Serum or Plasma [facility] Chloride [Moles/volu me] in Serum or Plasma [facility] Chloride [Moles/volu me] in Serum or Plasma [facility] Creatinine [Moles/vo lume] in Serum or Plasma [facility] Creatinine [Moles/vo lume] in Serum or Plasma [facility] Creatinine [Moles/vo lume] in Serum or Plasma [facility] Creatinine [Moles/vo lume] in Serum or Plasma [facility] End: 07-09-2021 Dxa bone density study 1/> sites axial skel DXA-AXIAL SKELETON Radiology Routine Screening for osteoporosis Menopause 1 Occurrences starting 06/08/2020 until 07/09/2021 [facility] Comment on above: 1 Occurrences starting 06/08/2020 until 07/09/2021 EKG 12 Lead - Chest Pain EKG 12 Lead - Chest Pain ECG STAT 11/03/2019 3:29 PM EST [facility] Work Phone: Glucose [Mass/volume ] in Serum or Plasma [facility] Glucose [Mass/volume ] in Serum or Plasma [facility] Glucose [Mass/volume ] in Serum or Plasma [facility] Glucose [Mass/volume ] in Serum or Plasma [facility] Haptoglobin [Mass/vo lume] in Serum or Plasma [facility] Hematocrit [Volume F raction] of Blood [facility] Hematocrit [Volume F raction] of Blood [facility] Hematocrit [Volume F raction] of Blood [facility] Hematocrit [Volume F raction] of Blood [facility] Hematocrit [Volume F raction] of Blood [facility] Hematocrit [Volume F raction] of Blood [facility] Hematocrit [Volume F raction] of Blood [facility] Hemoglobin [Mass/vol ume] in Blood [facility] Hemoglobin [Mass/vol ume] in Blood [facility] Hemoglobin [Mass/vol ume] in Blood [facility] Hemoglobin [Mass/vol ume] in Blood [facility] Hemoglobin [Mass/vol ume] in Blood [facility] Hemoglobin [Mass/vol ume] in Blood [facility] Hemoglobin [Mass/vol ume] in Blood [facility] End: 06-08-2021 HERPES SIMPLEX CULT HERPES SIMPLEX CULT Microbiology Routine Vulvar lesion 1 Occurrences starting 06/08/2020 until 06/08/2021 [facility] Comment on above: 1 Occurrences starting 06/08/2020 until 06/08/2021 End: 06-08-2021 HERPES SIMPLEX IGM AB HERPES SIMPLEX IGM AB Lab Routine Vulvar lesion 1 Occurrences starting 06/08/2020 until 06/08/2021 [facility] Comment on above: 1 Occurrences starting 06/08/2020 until 06/08/2021 End: 06-08-2021 HERPES SIMPLEX TYPE 1 AND 2 IG HERPES SIMPLEX TYPE 1 AND 2 IG Lab Routine Vulvar lesion 1 Occurrences starting 06/08/2020 until 06/08/2021 [facility] Comment on above: 1 Occurrences starting 06/08/2020 until 06/08/2021 End: 12-14-2020 Intermittent pulse oximetry Pulse Oximetry Spot Check Respiratory Care Routine One Time for 1 Occurrences starting 12/14/2020 until 12/14/2020 [employer] Work Phone: Comment on above: One Time for 1 Occurrences starting 12/2020 until 12/14/2020 Leukocytes [#/volume ] in Blood [facility] Leukocytes [#/volume ] in Blood [facility] Leukocytes [#/volume ] in Blood [facility] Leukocytes [#/volume ] in Blood [facility] Leukocytes [#/volume ] in Blood [facility] Leukocytes [#/volume ] in Blood [facility] Leukocytes [#/volume ] in Blood [facility] Mean corpuscular hem oglobin concentration determination [facility] Mean corpuscular hem oglobin concentration determination [facility] Mean corpuscular hem oglobin concentration determination [facility] Mean corpuscular hem oglobin concentration determination [facility] Mean corpuscular hem oglobin concentration determination [facility] Mean corpuscular hem oglobin concentration determination [facility] Mean corpuscular hem oglobin concentration determination [facility] Mean corpuscular hem oglobin determination [facility] Mean corpuscular hem oglobin determination [facility] Mean corpuscular hem oglobin determination [facility] Mean corpuscular hem oglobin determination [facility] Mean corpuscular hem oglobin determination [facility] Mean corpuscular hem oglobin determination [facility] Mean corpuscular hem oglobin determination [facility] Measurement of renal function [facility] Measurement of renal function [facility] Measurement of renal function [facility] Measurement of renal function [facility] End: 02-15-2021 MRA head without contrast MRA head without contrast Imaging Routine Once for 1 Occurrences starting 02/15/2021 until 02/15/2021 [employer] Work Phone: Comment on above: Once for 1 Occurrences starting 02/16/20 until 02/15/2021 End: 02-15-2021 MRA neck with and without contrast MRA neck with and without contrast Imaging Routine Once for 1 Occurrences starting 02/15/2021 until 02/15/2021 [employer] Work Phone: Comment on above: Once for 1 Occurrences starting 02/16/20 21 until 02/15/2021 End: 12-13-2020 MRI BRAIN W WO CONTRAST MRI BRAIN W WO CONTRAST Imaging Routine Once for 1 Occurrences starting 12/13/2020 until 12/13/2020 [employer] Work Phone: Comment on above: Once for 1 Occurrences starting 12/14/19 until 12/13/2020 Neutrophil count [facility] Neutrophil count [facility] Neutrophil count [facility] Neutrophil count [facility] Neutrophil count [facility] Neutrophil count [facility] Neutrophil count [facility] Neutrophil percent differential count [facility] Neutrophil percent differential count [facility] Neutrophil percent differential count [facility] Neutrophil percent differential count [facility] Neutrophil percent differential count [facility] Neutrophil percent differential count [facility] Neutrophil percent differential count [facility] Oxygen therapy [[facility] Data Set] [facility], [place] Comment on above: Daily until discontinued starting 2020 Daily until disconti nued starting 12/12/2020 Daily until disconti nued starting 01/14/2021 Daily until disconti nued starting 02/15/2021 PAP REFLEX HPV MRNA WHEN ASCUS PAP REFLEX HPV MRNA WHEN ASCUS Lab Routine Gynecologic exam normal Cervical cancer screening Ordered: 06/08/2020 [facility] Comment on above: Ordered: 06/08/2020 Patient Education Mora Clancy [facility] Work Phone: Patient referral [facility] Work Phone: Platelets [#/volume] in Blood [facility] Platelets [#/volume] in Blood [facility] Platelets [#/volume] in Blood [facility] Platelets [#/volume] in Blood [facility] Platelets [#/volume] in Blood [facility] Platelets [#/volume] in Blood [facility] Platelets [#/volume] in Blood [facility] Potassium [Moles/vol ume] in Serum or Plasma [facility] Potassium [Moles/vol ume] in Serum or Plasma [facility] Potassium [Moles/vol ume] in Serum or Plasma [facility] Potassium [Moles/vol ume] in Serum or Plasma [facility] Red blood cell count [facility] Red blood cell count [facility] Red blood cell count [facility] Red blood cell count [facility] Red blood cell count [facility] Red blood cell count [facility] Red blood cell count [facility] Red cell distributio n width determination [facility] Red cell distributio n width determination [facility] Red cell distributio n width determination [facility] Red cell distributio n width determination [facility] Red cell distributio n width determination [facility] Red cell distributio n width determination [facility] Red cell distributio n width determination [facility] Respiratory microbia l culture Respiratory Culture [facility] End: 07-08-2021 Screening mammography bi 2-view breast inc cad TOÑITO SCREENING Radiology Routine Gynecologic exam normal Breast screening 1 Occurrences starting 06/08/2020 until 07/08/2021 [facility] Comment on above: 1 Occurrences starting 06/08/2020 until 07/08/2021 Sodium [Moles/Vol] [facility] Work Phone: Sodium [Moles/volume ] in Serum or Plasma [facility] Sodium [Moles/volume ] in Serum or Plasma [facility] Sodium [Moles/volume ] in Serum or Plasma [facility] Sodium [Moles/volume ] in Serum or Plasma [facility] Spirometry panel Incentive veronica metry Respiratory Care Routine Every 2hr while awake until discontinued starting 01/14/2021 [employer] Phone: Comment on above: Every 2hr while awake until discontinued starting 01/14/2021 Total protein measurement [facility] Total protein measurement [facility] Total protein measurement [facility] Total protein measurement [facility] Urea nitrogen [Mass/ volume] in Serum or Plasma [facility] Urea nitrogen [Mass/ volume] in Serum or Plasma [facility] Urea nitrogen [Mass/ volume] in Serum or Plasma [facility] Urea nitrogen [Mass/ volume] in Serum or Plasma [facility] Payers Date Payer Category Payer Self-pay [id number] 2022 Medicare [id number] 2022 Unknown [address]UE [facility] S AND BLUE SHIELD ANTHEM MEDIBLUE O [id number] 2022-Present [phone] [id number] [place] [address] O [id number] 2020 Medicare HUMANA MANAGED M EDEL HUMANA MCR ADVANTAGE CHOICE PPO [id number] 2020-Present [id number] 2019 Medicare [id number] 2018 Medicare MMO MEDICARE MMO MEDADVANTAGE O [id number] 2018-Present O [id number] 2016 Unknown [id number] 1951 Unknown [id number] 1950 Unknown [id number] 1950 Unknown [id number] 2 Medicare [id number] Medicare [id number] Unknown [id number] 2 Social History Date Type Detail Facility Start: 11-03-2019 End: 06-08-2020 Tobacco smoking status ARIS Current every day smoker [facility] Start: 06-08-2020 End: 03-13-2021 Tobacco use and exposure Never used [facility] Start: 06-08-2020 Alcohol intake Lifetime non-d flex (finding) [facility] Start: 06-08-2020 End: 06-13-2020 History SDOH Alcohol Frequency 1 [facility] Start: 1950 Sex Assigned At Not on file S [employer] Work Phone: Start: 09-07-2022 End: 09-18-2022 Exposure to SARS-CoV-2 (event) Not sure [facility] History of tobacco use Cigarette Smoker [employer] Work Phone: Start: 11-03-2019 End: 10-21-2020 Cigarettes smoked current (pack per day) - Reported [employer] Work Phone: Start: 11-03-2019 End: 10-21-2020 Alcohol intake Current drinker of alcohol (finding) [employer] Work Phone: Start: 07-20-2020 Tobacco Comment off and on smoking [place], [place] Start: 10-20-2020 Alcohol Comment patient states she drinks, but not everyday. Daughter states patient drinks vodka. [facility], [place] Start: 10-20-2020 Alcohol Comment patient states she drinks, but not everyday. Daughter states patient drinks vodka. [facility] Work Phone: Start: 03-13-2021 Tobacco smoking status NHIS Current some day smoker [facility] Start: 03-11-2021 Alcohol Comment 1 bottle vodka daily [facility] Exposure to SARS-CoV-2 (event) Unable to assess [facility] Start: 02-05-2022 End: 12-16-2022 Tobacco smoking status NHIS Unknown if ever smoked [facility] Start: 03-06-2021 Occasional [facility] Start: 01-21-2021 None [facility] Start: 03-06-2021 Homeless [facility] Start: 03-06-2021 Cigarettes [facility] Start: 1950 Sex Assigned At Female [facility] Start: 06-15-2020 Alcohol intake Ex-drinker (finding) [facility] Start: 06-13-2020 Alcohol Comment recovering [facility] Tobacco smoking status No Smoking Status Entered [facility] [place] NEGATED: Highlighted rowStart: 05-14-2019 End: 05-14-2019 Alcohol use Alcohol use [facility] [employer] Work Phone: NEGATED: Highlighted rowStart: 05-14-2019 End: 05-14-2019 Assertion Current every day smoker [facility] [employer] Work Phone: NEGATED: Highlighted rowStart: 05-14-2019 End: 05-14-2019 Details of drug misuse behavior Details of drug misuse behavior [facility] [employer] Phone: NEGATED: Highlighted rowStart: 05-14-2019 End: 05-14-2019 How many days of moderate to strenuous exercise, like a brisk walk, did you do in the last 7 days? How many days of moderate to strenuous exercise, like a brisk walk, did you do in the last 7 days? [facility] [employer] Work Phone: NEGATED: Highlighted rowStart: 05-14-2019 End: 05-14-2019 Tobacco use and exposure Tobacco use and exposure [facility] [employer] Work Phone: Goals Date Patient Goal Desired Activity /State Functional Status Date Assessment Result Facility 12-18-2022 Functional status Bedrest [facility] Work Phone: 02-06-2022 Functional status Ambulates [facility] Work Phone: Mental Status Date Assessment Result Facility 12-18-2022 Cognitive function Touch/Shaking;Light Pa in [facility] Work Phone: 12-16-2022 Cognitive function Level Of Cons ciousness Postictal [facility] Work Phone: 04-27-2022 Cognitive function Voice/Name [facility] Work Phone: 02-06-2022 Cognitive function Appropriate;Cooperativ e [facility] Work Phone: Clinical Notes 10-24-2020 to 01-08-2023 Germaine Avila APRN.[facility] - 12/18/2022 9:34 AM EST Note Date & Type Note Facility 01-08-2023 Note [facility] 01-08-2023 Note [facility] 01-07-2023 Note [facility] 01[facility]07-2023 Note [facility] 01-06-2023 Note [facility] 01-05-2023 Note [facility] 01-04-2023 Note [facility] 01-04-2023 Note [facility] 01-04-2023 Note [facility] 01-03-2023 Note [facility] 01-03-2023 Note [facility] 01-02-2023 Note [facility] 01-02-2023 Note [facility] 01-02-2023 Note [facility] 01-01-2023 Note [facility] 01-01-2023 Note [facility] 12-31-2022 Note [facility] 12-31-2022 Note [facility] 12-30-2022 Note [facility] 12-29-2022 Note [facility] 12-29-2022 Note HNO ID: [id number] Author: Oscar Vargas DO Service: Neurology ICU Author Type: Resident Type: Plan of Care Filed: 12/29/2022 4:59 AM Note Text: BEM report request at 4:44am from Junior. Reported back at 4:50am. No seizures reviewed file [id number] [facility] 12-28-2022 Note [facility] 12-28-2022 Note [facility] 12-27-2022 Note [facility] 12-27-2022 Note [facility] 12-26-2022 Note [facility] 12-25-2022 Note [facility] 12-25-2022 Note [facility] 12-24-2022 Note [facility] 12-24-2022 Note [facility] 12-23-2022 Note [facility] 12-23-2022 Note HNO ID: [id number] Author: Interface Note Service: ? Author Type: ? Type: Progress Notes Filed: 12/23/2022 3:06 AM Note Text: Epic Scheduled Downtime: 12/23/2022 12:30:16 AM to 12/23/2022 1:50:00 AM [facility] 12-22-2022 Note [facility] 12-22-2022 Note HNO ID: [id number] Author: Interface Note Service: ? Author Type: ? Type: Progress Notes Filed: 12/22/2022 4:22 AM Note Text: Epic Scheduled Downtime: 12/22/2022 12:00:37 AM to 12/22/2022 4:09:02 AM [facility] 12-21-2022 Note [facility]20[facility] [facility] [facility] 12-18-2022 Note [facility] 12-18-2022 Note HNO ID: [id number] Author: Germaine Avila APRN.JERILYN Service: ? Author Type: Nurse Practitioner Type: Progress Notes Filed: 12/18/2022 11:41 AM Note Text: CRITICAL CARE TRANSPORT MEDICAL CONTROL CONSULT NOTE Patient Name: Jazmin Johnson Service Date: December 18, 2022 Referring Facility: [facility] Accepting Facility: [facility] REASON FOR TRANSPORT: Pt requires specialized neurological evaluation, possible continuous EEG monitoring, these services are not available at the referring facility REASON FOR CONSULT: pt intubated and requires sedation, possible focal seizure activity CCT MEDICAL CONTROL CONSULT SUMMARY: History, physical exam findings, and available background patient information from [facility] Transport Nurse were reviewed at the time of consult. 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 Pt was intubated for airway protection. Sedation discontinued >24 hours ago, pt still not following commands. PLAN: Multiple factors considered including: patient history/condition/trajectory/s tability, referring and receiving destinations, duration of transport time, medications and therapies available during transport, patient safety, as well as crew capabilities. Orders given for: Propofol infusion Plan of care and orders confirmed and read back via telephone with [facility] Transport anthropology faculty member, Daron Kahn RN SIGNATURE: Germaine Avila APRN.CNP Acute Care Nurse Practitioner Critical Care Transport [facility] 12-18-2022 History of Present illness Narrative Images from the original note were not included. CRITICAL CARE TRANSPORT MEDICAL CONTROL CONSULT NOTE Patient Name: Jazmin Johnson Service Date: December 18, 2022 Referring Facility: [facility] Accepting Facility: [facility] REASON FOR TRANSPORT: Pt requires specialized neurological evaluation, possible continuous EEG monitoring, these services are not available at the referring facility REASON FOR CONSULT: pt intubated and requires sedation, possible focal seizure activity CCT MEDICAL CONTROL CONSULT SUMMARY: History, physical exam findings, and available background patient information from CCT Transport Nurse were reviewed at the time of consult. 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 Pt was intubated for airway protection. Sedation discontinued >24 hours ago, pt still not following commands. PLAN: Multiple factors considered including: patient history/condition/trajectory/s tability, referring and receiving destinations, duration of transport time, medications and therapies available during transport, patient safety, as well as crew capabilities. Orders given for: Propofol infusion Plan of care and orders confirmed and read back via telephone with CCT Transport anthropology faculty member, Daron Kahn RN SIGNATURE: Germaine Avila APRN.CNP Acute Care Nurse Practitioner Critical Care Transport documented in this encounter [facility] 12-17-2022 Consult note Note Date/Time December 17, 2022 5:06pm [facility] [address] [place] [address] Consultation - Oncology IP 12/17/22 1702 MR#: [id number] Acct: [id number] Name: JAZMIN JOHNSON Rep #:[id number] : 1950 72 From: Su Bautista [employer] PCP: Dr. Khai Palacios MD Status:ADM I N Location: ICU CVICU20 1- Assessment & Plan Assessment/Plan (1) Thrombocytopenia: Status: Acute Code(s): D69.6 - Thrombocytopenia, unspecified Plan: As evidenced by platelet count 15,000 today, 31,000 on presentation to the ED yesterday. Despite history of EtOH abuse, it appears her baseline is nearly normal (146,000 on September 14, 2022). Differentials include ITP versus TTP. PLASMIC score for estimating risk of severe [id number] deficiency is 5 indicating intermediate risk. Labs, specifically haptoglobin, retic, direct bilirubin and [id number], for conclusive diagnosis are pending. Advise transfer for plasma exchange when feasible. In the interim may consider Dex 40 mg IV daily x4 with GI prophylaxis. Case discussed with Dr. Garcia who was in agreement with aforementioned plan. [facility] will continue to follow. (2) History of ETOH abuse: Status: Acute Code(s): F10.11 - Alcohol abuse, in remission HPI Consult Data Date of Service:: 12/18/22 PCP / Referring Provider: Dr. Khai Palacios MD Attending: Dr. Danya Alonzo MD Chief Complaint Chief Complaint: Thrombocytopenia History of Present Illness History of Present Illness: Ms. Jazmin Johnson is a 72 year old f with PMH significant for ETOH use, hypothyroidism, hyperlipidemia, subdural hematoma resulting from a fall, who reportedly presented by squad to [facility] ED on 12/16/22 after boyfriend witnessed whatwas described as a tonic clonic seizure. Found to be unresponsive to stimuli, tachycardic. Urine tox positive for benzodiazepines and MDMA. CT brain and CXR negative for acute findings. Had another seizure while in the ED thus intubatedand subsequently admitted to ICU for management of acute metabolic encephalopathy and respiratory failure. Cultures pending. Liver ultrasound pending. Haptoglobin pending Advanced Directives Power of High School Art Teacher: No Living Will: No [facility] Medical History AA (alcohol abuse) Alcohol abuse Anxiety Depression History of GI bleed Hyperlipidemia Hypothyroidism Polysubstance abuse Tobacco dependence Tobacco use Allergy/AdvReac Type Severity Reaction Status Date / Time No Known Allergies Allergy Verified 12/16/22 15:53 Family History Mother Heart disease Hypertension Father Heart disease Hypertension Surgical History No history of previous surgery Social History household members: none Smoking Status: Current every day smoker tobacco type: cigarettes alcohol intake: current alcohol intake frequency: 3 or more drinks per day details: Unclear how much she has been drinking lately substance use type: does not use ROS Review of Systems ROS Unobtainable: due to encephalopathy and due to endotracheal tube Physical Exam HEENT normocephalic, head/scalp atraumatic and moist oral mucous membranes Eyes conjunctivae normal and no scleral icterus Neck no lymphadenopathy and supple Lymph Lymphatic: no lymphadenopathy noted Resp Resp Narrative: intubated Auscultation: diminished lung sounds; Negative for wheezes Cardio regular rhythm, S1 normal heart sound and S2 normal heart sound Rate: tachycardic GI normal to inspection, nondistended, normoactive bowel sounds, soft to palpation,non-tender and non-distended Narrative: Payne catheter draining clear orange urine Extremity normal capillary refill, no clubbing, cyanosis or edema and no calf tenderness Skin Skin Narrative: Ecchymosis bilateral upper extremities Neuro Neuro Narrative: intubated Vital Signs Temperature 100.1 F H 12/17/22 16:00 Temperature Source Core 12/17/22 16:00 Pulse Rate 122 H 12/17/22 16:00 Pulse Strength Weak (1+) 12/17/22 10:00 Respiratory Rate 16 12/17/22 16:00 Respiratory Effort 12/17/22 11:44 Respiratory Depth Normal 12/17/22 11:44 Respiratory Pattern Normal 12/17/22 16:00 Blood Pressure 128/70 H 12/17/22 16:00 Blood Pressure Mean 89 12/17/22 16:00 Blood Pressure Source Monitor 12/17/22 16:00 Blood Pressure Position Semi-Fowlers 12/17/22 16:00 Blood Pressure Location Left Arm 12/17/22 16:00 Pulse Ox 98 12/17/22 16:00 Oxygen Delivery Method Mechanical Ventilator 12/17/22 16:00 Oxygen Flow Rate (L/min) 30 12/17/22 07:00 Fraction of Inspired Oxygen (FIO2) 30 12/17/22 16:00 Laboratory Results - last 24 hr 12/16/22 16:14: Diff Path Review Reviewed 12/16/22 16:19: Lactic Acid 8.4 H* 12/16/22 16:19: TSH 19.60 H 12/16/22 16:19: PT 14.1, INR 1.1, APTT 23.5 L 12/16/22 16:19: Total Creatine Kinase 193 H 12/16/22 20:10: Vitamin D 25-Hydroxy 32.7 12/16/22 20:10: PTH Intact 15.4 L 12/16/22 20:10: Sodium 136, Potassium 4.2, Chloride 101, Carbon Dioxide 26.0, Anion Gap 9, BUN 24 H, Creatinine 1.23 H, Estim Creat Clear Calc 34.70, Est GFR (MDRD) Af Amer 55 L, Est GFR (MDRD) Non-Af 46 L, BUN/Creatinine Ratio 19.5, Glucose 125 H, Calcium 11.8 H, Total Bilirubin 3.20 H, AST 356 H, ALT 62 H, Alkaline Phosphatase 84, Total Protein 6.5, Albumin 2.6 L, Globulin 3.9, Albumin/Globulin Ratio 0.7 L 12/16/22 20:10: Total Creatine Kinase 266 H, Triglycerides 117 12/16/22 20:10: Lactic Acid Cancelled 12/16/22 23:00: Lactic Acid 2.1 H* 12/17/22 00:17: POC Glucose 93 12/17/22 05:10: WBC 14.7 H, RBC 4.53, Hgb 14.8, Hct 44.3, MCV 97.8, MCH 32.7 H, MCHC 33.4, RDW Std Deviation 51.6 H, RDW Coeff of Melany 14.3, Plt Count 13 L*, Immature Gran % (Auto) 0.400, Neut % (Auto) 81.3 H, Lymph % (Auto) 8.5 L, Cecil %(Auto) 9.4, Eos % (Auto) 0.1, Baso % (Auto) 0.3, Absolute Neuts (auto) 12.0 H, Absolute Lymphs (auto) 1.25, Nucleated RBC % 0.1, Diff Path Review Reviewed, Platelet Estimate MKD 12/17/22 05:10: Sodium 141, Potassium 2.9 L, Chloride 105, Carbon Dioxide 26.0, Anion Gap 10, BUN 34 H, Creatinine 1.10 H, Estim Creat Clear Calc 38.80, Est GFR(MDRD) Af Amer 63, Est GFR (MDRD) Non-Af 52 L, BUN/Creatinine Ratio 30.9 H, Glucose 98, Calcium 11.2 H, Magnesium 0.6 L*, Total Bilirubin 2.60 H, AST 171 H,ALT 49, Alkaline Phosphatase 69, Total Protein 5.5 L, Albumin 2.3 L, Globulin 3.2, Albumin/Globulin Ratio 0.7 L 12/17/22 05:10: Phosphorus 1.5 L 12/17/22 05:10: Free T4 1.24 12/17/22 05:10: Lactate Dehydrogenase 1113 H 12/17/22 05:10: Direct Bilirubin 0.97 H 12/17/22 05:18: POC Glucose 106 12/17/22 11:22: POC Glucose 75 12/17/22 13:25: Fibrinogen 147 L, D-Dimer Quant (PE/DVT) 9.79 H* 12/17/22 13:25: Plt Count Cancelled 12/17/22 14:15: Plt Count Cancelled, Diff Path Review Cancelled 12/17/22 14:36: Plt Count 15 L* 12/17/22 14:36: Immature Plt Fraction 27.4 H, Retic Count 2.23 H, Immature ReticFraction 13.30, Retic Hgb Equivalent 36.5 H Microbiology 12/16/22 19:05 Sputum, Induced/Lukens Gram Stain - Final 12/16/22 19:05 Sputum, Induced/Lukens Respiratory Culture - Preliminary Appears to be normal respiratory jorge. Further studies to follow. 12/16/22 16:25 Urine Catheter - Catheter Urine Culture - Preliminary GNR lactose patient transition specialist Diagnostic Data Chest X-Ray 12/16/22 18:30 IMPRESSION: There are no acute findings. There is a feeding tube/ nasogastric tube noted. The tip is not seen because it extends off the film. Electronically Signed: James Wilkins MD at 18:52 EST , KUB X-Ray 12/16/22 19:47 IMPRESSION: There is a feeding tube/ nasogastric tube noted. The tip is in the region of the stomach. Electronically Signed: James Wilkins MD at 20:25 EST , Abdomen Ultrasound 12/17/22 07:00 IMPRESSION: Fatty infiltration of the liver. Electronically Signed: Raymundo Aldrich MD at 10:42 EST , Brain CT 12/17/22 13:00 IMPRESSION: Chronic involutional changes of the brain. Electronically Signed: Raymundo Aldrich MD at 14:09 EST , 12/18/22 0834 <Electronically signed by Su GASCA> CC: CAMPOS Bazan; CAMPOS Bautista; Dr. Paco Thompson MD; Dr. Oscar Topete MD; Dr. Roberth Aldana DO; Dr. Rd Kincaid MD; Dr. Nidia Pham DO; Dr. Ankit Izquierdo MD; Dr. Jessica Garcia MD; Dr. Rk Nelson MD; Dr. Osvaldo Lee MD; Dr. Justino Kathleen MD; Dr. Bill Dubon DO; Dr. Khai Palacios MD; Dr. Julian Martinez MD ~ Signed [facility] Work Phone: 1([phone]) 283-381803-06-[address] Pham [facility] December 17, 2022 7:35am Note Date/Time December 17, 2022 7:35 am [facility] Medical Records Department [address] [place] [address] [place] [address] Telemedicine Confirmation Receipt 12/17/22 MR#: [id number] Acct: [id number] Name: JAZMIN JOHNSON Rep #:[id number] : 1950 72 From: Nidia Pham DO PCP: Dr. Khai Palacios MD Status:ADM I N [facility] Telemed has confirmed receipt of a request for visit. This document confirms receipt of the order initiating the consult. To find the results of the consultation, please view the patient's reports for the scanned Telemed Consult. [facility] Work Phone: 1(237) 980-835203-06-[address] Aldana [facility] December 18, 2022 7:44am Note Date/Time December 17, 2022 6:57 am [facility] Medical Records Department [address] [place] [address] Consultation - Machine Chain Maker 12/17/22 0650 MR#: [id number] Acct: [id number] Name: JAZMIN JOHNSON Rep #:[id number] : 1950 72 From: Roberth Aldana DO PCP: Dr. Khai Palacios MD Status:ADM I N Location: ICU CVICU20 1-1 Assessment & Plan Assessment/Plan (1) Acute respiratory failure: (2) Acute alteration in mental status: PLAN: Plan RECOMMENDATIONS: 1. Continue assist-control mode of mechanical ventilation. Wean FiO2 and PEEP to maintain saturations at or above 90%. 2. Continue empiric antimicrobials, pending finalized culture results. 3. Continue seizure precautions, Keppra and as needed Ativan. 4. Complete EEG and obtain follow-up neurology consultation. 5. Check free T4 level. 6. Hold sedating medications for now. 7. Aggressive electrolyte repletion. 8. Continue thiamine and folate repletion. 9. Okay to initiate tube feeds. Monitor closely for refeeding syndrome. IMPRESSIONS: 1. Acute encephalopathy The patient developed new onset seizure activity, potentially related to alcoholwithdrawal. The patient does have a longstanding alcohol abuse history but was negative for EtOH on presentation. She did require intubation to secure her airway. The patient was given Versed in route by EMS, which would account for her positive toxicology screen for benzodiazepines. Therefore, I do not see an indication for continuous Versed. At this time, with plan to hold all sedating medications. EEG is to be completed this morning. I would recommend that a follow-up neurology consultation be obtained. In the interim, we will continue seizure precautions along with Keppra and as needed Ativan. 2. Acute respiratory failure The patient was intubated in the emergency department over concerns for airway protection in the setting of #1. Chest x-ray demonstrated no acute cardiopulmonary process. Plan to continue invasive mechanical ventilatory support, with tentative plans to proceed with weaning, once the patient's mentalstatus has improved. 3. Gram-negative cystitis Continue empiric antimicrobials, pending finalized culture results. 4. Alcoholic hepatitis and hyperbilirubinemia Likely secondary to longstanding alcohol dependency. Continue to monitor levels. Abdominal ultrasound is pending. 5. Thrombocytopenia Initially felt to be 2/2 longstanding alcohol dependency. However, her plateletcount dropped rather suddenly following admission, raising the concern for an alternative etiology. I agree that ITP/TTP are considerations. This would require [id number] testing. Haptoglobin and reticulocyte count are pending. Hematology consultation is pending. No indication for transfusion of platelets at this time. We will recheck platelet count this afternoon. 6. Hypokalemia/hypophosphatemia/hypomagnesemia Aggressive electrolyte repletion as ordered. Electrolytes will need to be monitored closely over concerns for refeeding syndrome once tube feeds are initiated. 7. History of hypothyroidism/hyperlipidemia/anxiety/depression/chronic tobacco dependency Complicates care, management, recovery and prognosis. Continue supportive measures as noted above. Okay to initiate tube feeds today. TIME: 42 minutes of critical care time, independent of procedures, was spent addressing the patient's acute encephalopathy, new onset seizure activity, acuterespiratory failure, gram-negative cystitis, alcoholic hepatitis, thrombocytopenia, significant electrolyte derangements, review of all data and collaboration with the care team. HPI Consult Data Date of Consult: 12/18/22 HPI Narrative Reason for Consultation: Acute respiratory failure HPI Narrative: The patient is a 72-year-old female, with a history as outlined below, who presented to the emergency department via EMS on December 16 with new onset seizure activity. The patient has a medical history that includes chronic alcohol dependency and prior subdural hematoma. History pertinent to the patient's hospitalization was obtained primarily via chart review, as the patient is currently intubated and there is no family available at the bedside. On presentation to the emergency department, the patient was documented to have a temperature of 97.6 ?F. She was notably tachycardic and tachypneic. Initial laboratory evaluation revealed a white blood cell count of 13,000. Platelet count was low at 31,000. Chemistry profile was notable for a chloride of 93, anion gap of 18, BUN of 22 and creatinine of 1.78. Lactate was elevated at 8.4. Total bili was increased at 3.2 with an AST of 427 and ALT of 71. TSH was elevated at 19.6. Urinalysis was positive for leukocyte Estrace and 4+ urine bacteria. Toxicology screen was positive for MDMA and benzodiazepines. CT headrevealed chronic involutional changes. On presentation to the emergency department, the patient was documented to have a GCS of 3. She did have a witnessed tonic-clonic seizure around 1800 in the emergency department, which was medically managed with IV Ativan and Keppra. Given concerns for airway protection, the patient was intubated. The patient was subsequently placed on empiric antimicrobials and admitted to the medical intensive care unit. [facility] Medical History AA (alcohol abuse) Alcohol abuse Anxiety Depression History of GI bleed Hyperlipidemia Hypothyroidism Polysubstance abuse Tobacco dependence Tobacco use Allergy/AdvReac Type Severity Reaction Status Date / Time No Known Allergies Allergy Verified 12/16/22 15:53 Family History Mother Heart disease Hypertension Father Heart disease Hypertension Surgical History No history of previous surgery Social History household members: none Smoking Status: Current every day smoker tobacco type: cigarettes alcohol intake: current alcohol intake frequency: 3 or more drinks per day details: Unclear how much she has been drinking lately substance use type: does not use ROS Review of Systems ROS Unobtainable: due to endotracheal tube and due to mental status Physical Exam Const Constitutional Narrative: Intubated and mechanically ventilated. Sedation is currently on hold. The patient is not currently responsive to verbal or tactile stimulation. HEENT normocephalic and head/scalp atraumatic Mouth: endotracheal tube in place and OG tube in place Eyes PERRL and no scleral icterus Neck supple General: trachea midline Chest inspection of chest normal Resp Auscultation: diminished lung sounds; Negative for rales, rhonchi or wheezes Cardio S1 normal heart sound and S2 normal heart sound Rate: tachycardic GI normal to inspection, nondistended, normoactive bowel sounds Extremity no clubbing, cyanosis or edema Skin no rashes or lesions noted Neuro Neuro Narrative: Currently nonresponsive on the ventilator. Lab / Micro Data Result Diagrams: 12/18/22 03:40 12/18/22 03:40 Labs: Laboratory Results - last 24 hr 12/16/22 16:14: WBC 13.5 H, RBC 5.36, Hgb 17.8 H, Hct 54.1 H, MCV 100.9 H, MCH 33.2 H, MCHC 32.9, RDW Std Deviation 53.5 H, RDW Coeff of Melany 14.3, Plt Count 31L*, MPV TNP, Immature Gran % (Auto) 0.700, Neut % (Auto) 71.7 H, Lymph % (Auto) 12.6 L, Cecil % (Auto) 10.4 H, Eos % (Auto) 4.2, Baso % (Auto) 0.4, Absolute Neuts (auto) 9.7 H, Absolute Lymphs (auto) 1.71, Nucleated RBC % 0, DifferentialComment SCANNED, Diff Path Review February12/16/22 16:14: Sodium 138, Potassium 3.7, Chloride 93 L, Carbon Dioxide 27.0, Anion Gap 18 H, BUN 22 H, Creatinine 1.78 H, Estim Creat Clear Calc 23.98, Est GFR (MDRD) Af Amer 36 L, Est GFR (MDRD) Non-Af 30 L, BUN/Creatinine Ratio 12.4, Glucose 154 H, Calcium 14.9 H*, Total Bilirubin 3.20 H, AST 427 H, ALT 71 H, Alkaline Phosphatase 106, Total Protein 7.3, Albumin 3.1 L, Globulin 4.2, Albumin/Globulin Ratio 0.7 L 12/16/22 16:14: Ethyl Alcohol < 3.0 12/16/22 16:15: POC Glucose 147 H 12/16/22 16:19: Lactic Acid 8.4 H* 12/16/22 16:19: TSH 19.60 H 12/16/22 16:19: PT 14.1, INR 1.1, APTT 23.5 L 12/16/22 16:19: Total Creatine Kinase 193 H 12/16/22 16:29: Urine Opiates Screen NEGATIVE, Urine Methadone Screen NEGATIVE, Ur Barbiturates Screen NEGATIVE, Ur Phencyclidine Scrn NEGATIVE, Ur AmphetaminesScreen NEGATIVE, MDMA (Ecstasy) Screen POSITIVE H, U Benzodiazepines Scrn POSITIVE H, Urine Cocaine Screen NEGATIVE, U Cannabinoids Screen NEGATIVE, Ur Drug Screen Comment 12/16/22 16:29: Urine Color Lilly, Urine Clarity Cloudy, Urine pH 6.5, Ur Specific [place] 1.015, Urine Protein 100 H, Urine Glucose (UA) Normal, Urine Ketones 5 H, Urine Occult Blood 250 H, Urine Nitrite Negative, Urine Bilirubin Negative, Urine Urobilinogen 1 H, Ur Leukocyte Esterase 25 H, Urine RBC 0-5 SEEN, Urine WBC 10- 25 SEEN, Ur Squamous Epith Cells 0-5 SEEN, Urine Bacteria 4+, Urine Mucus 0 SEEN 12/16/22 20:10: Sodium 136, Potassium 4.2, Chloride 101, Carbon Dioxide 26.0, Anion Gap 9, BUN 24 H, Creatinine 1.23 H, Estim Creat Clear Calc 34.70, Est GFR (MDRD) Af Amer 55 L, Est GFR (MDRD) Non-Af 46 L, BUN/Creatinine Ratio 19.5, Glucose 125 H, Calcium 11.8 H, Total Bilirubin 3.20 H, AST 356 H, ALT 62 H, Alkaline Phosphatase 84, Total Protein 6.5, Albumin 2.6 L, Globulin 3.9, Albumin/Globulin Ratio 0.7 L 12/16/22 20:10: Total Creatine Kinase 266 H, Triglycerides 117 12/16/22 20:10: Lactic Acid Cancelled 12/16/22 23:00: Lactic Acid 2.1 H* 12/17/22 00:17: POC Glucose 93 12/17/22 05:10: WBC 14.7 H, RBC 4.53, Hgb 14.8, Hct 44.3, MCV 97.8, MCH 32.7 H, MCHC 33.4, RDW Std Deviation 51.6 H, RDW Coeff of Melany 14.3, Plt Count 13 L*, Immature Gran % (Auto) 0.400, Neut % (Auto) 81.3 H, Lymph % (Auto) 8.5 L, Cecil %(Auto) 9.4, Eos % (Auto) 0.1, Baso % (Auto) 0.3, Absolute Neuts (auto) 12.0 H, Absolute Lymphs (auto) 1.25, Nucleated RBC % 0.1 12/17/22 05:10: Sodium 141, Potassium 2.9 L, Chloride 105, Carbon Dioxide 26.0, Anion Gap 10, BUN 34 H, Creatinine 1.10 H, Estim Creat Clear Calc 38.80, Est GFR(MDRD) Af Amer 63, Est GFR (MDRD) Non-Af 52 L, BUN/Creatinine Ratio 30.9 H, Glucose 98, Calcium 11.2 H, Magnesium 0.6 L*, Total Bilirubin 2.60 H, AST 171 H,ALT 49, Alkaline Phosphatase 69, Total Protein 5.5 L, Albumin 2.3 L, Globulin 3.2, Albumin/Globulin Ratio 0.7 L 12/17/22 05:10: Phosphorus 1.5 L 12/17/22 05:18: POC Glucose 106 ABG Data ABG results: ABG 12/16/22 12/16/22 18:04 22:52 Specimen Type ART ART Sample Site R Radial R Radial pH 7.45 7.60 H* Bicarbonate Actual 26.4 H 21.1 L Total CO2 28 22 Base Excess 2 0 O2 Saturation 97 99 O2 % 30 ABG pCO2 38.2 21.6 L ABG pO2 90 91 Darrick Test Positive Respiration Rate 14 O2 Delivery Device ET Tube Liter Flow 2.0 Vent Mode AC Tidal Volume 450 POC PEEP 5 Crit Call To/Read Back Yes Radiology Impression Brain CT 12/16/22 16:05 IMPRESSION: There are no acute findings. Chronic involutional changes of the brain. Electronically Signed: James Wilkins MD at 16:41 EST , Chest X-Ray 12/16/22 16:32 IMPRESSION: There are no acute findings. Electronically Signed: James Wilkins MD at 16:43 EST , Chest X-Ray 12/16/22 18:30 IMPRESSION: There are no acute findings. There is a feeding tube/ nasogastric tube noted. The tip is not seen because it extends off the film. Electronically Signed: James Wilkins MD at 18:52 EST , KUB X-Ray 12/16/22 19:47 IMPRESSION: There is a feeding tube/ nasogastric tube noted. The tip is in the region of the stomach. Electronically Signed: James Wilkins MD at 20:25 EST , Charges/Coding Procedures Hospitalists Procedures: 94341 Critial Care 1st Hr 12/18/22 0744 <Electronically signed by Roberth Aldana DO> Cosigner Signature (if applicable): CC: COMPANY DANCERFederico Bazan; COMPANY DANCER-Tarsha Bautista; Dr. Paco Thompson MD; Dr. Oscar Topete MD; Dr. Roberth Aldana DO; Dr. Rd Kincaid MD; Dr. Nidia Pham DO; Dr. Ankit Izquierdo MD; Dr. Jessica Garcia MD; Dr. Rk Nelson MD; Dr. Osvaldo Lee MD; Dr. Justino Kathleen MD; Dr. Bill Dubon DO; Dr. Khai Palacios MD; Dr. Julian Martinez MD~ Signed [facility] Work Phone: [phone]) 807-746003-06-[address] Han [facility] December 16, 2022 10:14pm Note Date/Time December 16, 2022 4:13 pm [facility] Medical Records Department [address] [place] [address] Emergency Department Summary 12/16/22 MR#: [id number] Acct: [id number] Name: JAZMIN JOHNSON Rep #:[id number] : 1950 72 From: Germaine LEI PCP: Dr. Khai Palacios MD Status:ADM I N Location: ICU CVICU20 1-1 HPI <DO Li - Last Filed: 12/16/22 18:07> History of Present Illness Chief Complaint: Seizure Narrative Narrative: 72-year-old female with PMH of alcohol abuse, SDH presents after seizure. History is gathered from paramedics and her boyfriend at bedside. He went to her house this afternoon and there was pee on the floor but she otherwise seemednormal. There were a bunch of empty liquor bottles and she drinks daily. He went to get fast food and when he came back she was on the couch having a tonic-clonic seizure. He called the paramedics and when they arrived they administered Versed and brought her in for evaluation. She has a questionable seizure history. He states she fell a couple months ago and had a traumatic subdural hemorrhage and thinks she may have had a seizure but is not sure if sheis on antiepileptic medication. No recent illness. No known head trauma. PFSH <DO Li - Last Filed: 12/16/22 18:07> PFSH Medical History AA (alcohol abuse) Alcohol abuse Anxiety Depression History of GI bleed Hyperlipidemia Hypothyroidism Polysubstance abuse Tobacco dependence Tobacco use Allergy/AdvReac Type Severity Reaction Status Date / Time No Known Allergies Allergy Verified 12/16/22 15:53 Family History Mother Heart disease Hypertension Father Heart disease Hypertension Surgical History No history of previous surgery Social History (Updated 12/16/22 @ 17:[address] Nidia Pham DO) household members: none Smoking Status: Current every day smoker tobacco type: cigarettes alcohol intake: current alcohol intake frequency: 3 or more drinks per day details: Unclear how much she has been drinking lately substance use type: does not use ROS <DO Li - Last Filed: 12/16/22 18:07> ROS ED ROS Narrative Unable to obtain ROS secondary to patient's altered mental status EXAM <DO Li - Last Filed: 12/16/22 18:07> Physical Exam Narrative Exam Narrative: CONST: Patient lying in bed with eyes closed. EYES: Normal inspection. 4 mm pupils equal round reactive bilaterally. ENT: Normal inspection, moist mucous membranes. NECK: Normal inspection. RESP: Tachypneic at 30/minute, lungs clear. CVS: Rapid but regular, no murmur, no gallop. ABD: Soft and nontender, no guarding or rebound, nondistended. SKIN: Color normal, no rash, warm, dry, intact. EXTREMITIES: Normal appearance, no pedal edema. NEURO: Lying in bed with eyes closed, no eye-opening, no verbal response, no motor response, GCS 3. PSYCH: Normal affect. Const Vital Signs: 12/16/22 15:45 12/16/22 15:54 12/16/22 16:44 Temperature 97.6 F L Temperature Source Temporal Pulse Rate 152 H 149 H 106 H Respiratory Rate 32 H 31 H 18 Blood Pressure 126/104 H 118/95 H 178/105 H Blood Pressure Mean 111 102 129 Pulse Ox 100 95 94 Oxygen Delivery Method Non-Rebreather Nasal Cannula Nasal Cannula Oxygen Flow Rate (L/min) 15 2 2 12/16/22 17:00 12/16/22 17:50 Temperature 97.8 F Temperature Source Temporal Pulse Rate 78 98 Respiratory Rate 18 16 Blood Pressure 174/64 H 177/100 H Blood Pressure Mean 100 125 Pulse Ox 94 97 Oxygen Delivery Method Nasal Cannula Nasal Cannula Oxygen Flow Rate (L/min) 2 2 <Dr. George Han MD - Last Filed: 12/16/22 18:45> Physical Exam Const Vital Signs: 12/16/22 15:45 12/16/22 15:54 12/16/22 16:44 Temperature 97.6 F L Temperature Source Temporal Pulse Rate 152 H 149 H 106 H Respiratory Rate 32 H 31 H 18 Blood Pressure 126/104 H 118/95 H 178/105 H Blood Pressure Mean 111 102 129 Pulse Ox 100 95 94 Oxygen Delivery Method Non-Rebreather Nasal Cannula Nasal Cannula Oxygen Flow Rate (L/min) 15 2 2 12/16/22 17:00 12/16/22 17:50 Temperature 97.8 F Temperature Source Temporal Pulse Rate 78 98 Respiratory Rate 18 16 Blood Pressure 174/64 H 177/100 H Blood Pressure Mean 100 125 Pulse Ox 94 97 Oxygen Delivery Method Nasal Cannula Nasal Cannula Oxygen Flow Rate (L/min) 2 2 [facility] <DO Li - Last Filed: 12/16/22 18:07> [facility] Narrative Medical decision making narrative: Patient had questionable seizure today and was brought in by squad. She has a history of alcohol abuse. BP 126/104, heart rate in the 140s?150s in sinus rhythm, respiratory rate in the 30s. She was brought in on nonrebreather but weaned to 2 L nasal cannula and is 94%. She is lying in bed with her eyes closed and not responsive to voice or motor stimuli. She does not follow commands. GCS 3. She is protecting her airway. Differential includes seizure,intracranial hemorrhage, metabolic abnormality, infection, polysubstance/alcoholintoxication. Broad work-up was started. Labs show white count of 13.5, hemoconcentration 17.8. She may be dehydrated. She has new thrombocytopenia at31. Sodium and potassium are normal, anion gap 18, creatinine 1.78 is elevated from baseline consistent with EBER. She also is hypercalcemic at 14.9. AST/ALT 427/71. Total bilirubin 3.2. Glucose is 154 with anion gap of 18. She was treated with a liter of fluids. Alcohol level is negative and urine tox positive for benzos and MDMA. UA is consistent with UTI so she was given Rocephin. CT brain and CXR negative for acute findings. Patient was reassessedat 171 and is sitting in bed with her eyes open but still not following commands. I discussed the case with the hospitalist, Dr. Pham, who added on a TSH, ABG, and lactate and accepted the patient to the ICU. Patient did have another seizure at 1804 and I ordered IV Ativan 1 mg x 1 and a loading dose of Keppra. 45 minutes of critical care time was consumed by evaluation of the patient, reviewing labs and imaging, discussion with significant other and consultants. I have personally performed a face to face assessment of the patient and have reviewed the ESSIE Note. I performed a substantive portion of the visit including all aspects of the following. My herrera findings include: History is [72-year-old female history of a prior subdural bleed. Suspected history of prior seizures. Patient herself is unable to give any history. Her significant other is here he lives with her part of the week. But he is limited on what he knows of her past medical history. Today found her slumped over at the couch at home. She was brought in by squad. She does have a history of alcohol abuse. No reported recent fall or head trauma. No witnessed seizure today. Except she had a seizure and was quad ride and was given Versed prior to arrival. Patient is unable to give me any history.] Exam is [72-year-old vital signs are stable. Blood pressure 126/104 she is tachycardic 152. Pulse ox 100% on nonrebreather. H EENT exam eyes are closed. Pupils are 2 to 3 mm bilaterally. Nondilated. No signs of head or neck trauma. Neck nontender. No lymphadenopathy. Lungs clear to auscultation. Heart tachycardic no murmur. Abdomen soft nontender. Extremities she is not moving them. Neurologically her eyes are closed. Currently she is unresponsive. She does not answer questions or follow commands. She is currently not withdrawing.] Medical Decision Making [72-year-old decreased mental status. CAT scan and labs are pending. She may or may not of had a seizure. This could be an intracranial event. This could be from intoxication.] Other additions or changes: [None] Lab Data Labs: Laboratory Results - last 24 hr 12/16/22 12/16/22 12/16/22 16:14 16:14 16:14 WBC 13.5 H RBC 5.36 Hgb 17.8 H Hct 54.1 H MCV 100.9 H MCH 33.2 H MCHC 32.9 RDW Std Deviation 53.5 H RDW Coeff of Melany 14.3 Plt Count 31 L* MPV TNP Immature Gran % (Auto) 0.700 Neut % (Auto) 71.7 H Lymph % (Auto) 12.6 L Cecil % (Auto) 10.4 H Eos % (Auto) 4.2 Baso % (Auto) 0.4 Absolute Neuts (auto) 9.7 H Absolute Lymphs (auto) 1.71 Nucleated RBC % 0 Differential Comment SCANNED Diff Path Review May foll PT INR APTT Sodium 138 Potassium 3.7 Chloride 93 L Carbon Dioxide 27.0 Anion Gap 18 H BUN 22 H Creatinine 1.78 H Estim Creat Clear Calc 23.98 Est GFR (MDRD) Af Amer 36 L Est GFR (MDRD) Non-Af 30 L BUN/Creatinine Ratio 12.4 Glucose 154 H Lactic Acid Calcium 14.9 H* Total Bilirubin 3.20 H AST 427 H ALT 71 H Alkaline Phosphatase 106 Total Creatine Kinase Total Protein 7.3 Albumin 3.1 L Globulin 4.2 Albumin/Globulin Ratio 0.7 L TSH Urine Color Urine Clarity Urine pH Ur Specific [place] Urine Protein Urine Glucose (UA) Urine Ketones Urine Occult Blood Urine Nitrite Urine Bilirubin Urine Urobilinogen Ur Leukocyte Esterase Urine RBC Urine WBC Ur Squamous Epith Cells Urine Bacteria Urine Mucus Urine Opiates Screen Urine Methadone Screen Ur Barbiturates Screen Ur Phencyclidine Scrn Ur Amphetamines Screen MDMA (Ecstasy) Screen U Benzodiazepines Scrn Urine Cocaine Screen U Cannabinoids Screen Ur Drug Screen Comment Ethyl Alcohol < 3.0 POC Glucose 12/16/22 12/16/22 12/16/22 16:15 16:19 16:19 WBC RBC Hgb Hct MCV MCH MCHC RDW Std Deviation RDW Coeff of Melany Plt Count MPV Immature Gran % (Auto) Neut % (Auto) Lymph % (Auto) Cecil % (Auto) Eos % (Auto) Baso % (Auto) Absolute Neuts (auto) Absolute Lymphs (auto) Nucleated RBC % Differential Comment Diff Path Review PT INR APTT Sodium Potassium Chloride Carbon Dioxide Anion Gap BUN Creatinine Estim Creat Clear Calc Est GFR (MDRD) Af Amer Est GFR (MDRD) Non-Af BUN/Creatinine Ratio Glucose Lactic Acid 8.4 H* Calcium Total Bilirubin AST ALT Alkaline Phosphatase Total Creatine Kinase Total Protein Albumin Globulin Albumin/Globulin Ratio TSH 19.60 H Urine Color Urine Clarity Urine pH Ur Specific [place] Urine Protein Urine Glucose (UA) Urine Ketones Urine Occult Blood Urine Nitrite Urine Bilirubin Urine Urobilinogen Ur Leukocyte Esterase Urine RBC Urine WBC Ur Squamous Epith Cells Urine Bacteria Urine Mucus Urine Opiates Screen Urine Methadone Screen Ur Barbiturates Screen Ur Phencyclidine Scrn Ur Amphetamines Screen MDMA (Ecstasy) Screen U Benzodiazepines Scrn Urine Cocaine Screen U Cannabinoids Screen Ur Drug Screen Comment Ethyl Alcohol POC Glucose 147 H 12/16/22 12/16/22 12/16/22 16:19 16:19 16:29 WBC RBC Hgb Hct MCV MCH MCHC RDW Std Deviation RDW Coeff of Melany Plt Count MPV Immature Gran % (Auto) Neut % (Auto) Lymph % (Auto) Cecil % (Auto) Eos % (Auto) Baso % (Auto) Absolute Neuts (auto) Absolute Lymphs (auto) Nucleated RBC % Differential Comment Diff Path Review PT 14.1 INR 1.1 APTT 23.5 L Sodium Potassium Chloride Carbon Dioxide Anion Gap BUN Creatinine Estim Creat Clear Calc Est GFR (MDRD) Af Amer Est GFR (MDRD) Non-Af BUN/Creatinine Ratio Glucose Lactic Acid Calcium Total Bilirubin AST ALT Alkaline Phosphatase Total Creatine Kinase 193 H Total Protein Albumin Globulin Albumin/Globulin Ratio TSH Urine Color Urine Clarity Urine pH Ur Specific [place] Urine Protein Urine Glucose (UA) Urine Ketones Urine Occult Blood Urine Nitrite Urine Bilirubin Urine Urobilinogen Ur Leukocyte Esterase Urine RBC Urine WBC Ur Squamous Epith Cells Urine Bacteria Urine Mucus Urine Opiates Screen NEGATIVE Urine Methadone Screen NEGATIVE Ur Barbiturates Screen NEGATIVE Ur Phencyclidine Scrn NEGATIVE Ur Amphetamines Screen NEGATIVE MDMA (Ecstasy) Screen POSITIVE H U Benzodiazepines Scrn POSITIVE H Urine Cocaine Screen NEGATIVE U Cannabinoids Screen NEGATIVE Ur Drug Screen Comment Ethyl Alcohol POC Glucose 12/16/22 16:29 WBC RBC Hgb Hct MCV MCH MCHC RDW Std Deviation RDW Coeff of Melany Plt Count MPV Immature Gran % (Auto) Neut % (Auto) Lymph % (Auto) Cecil % (Auto) Eos % (Auto) Baso % (Auto) Absolute Neuts (auto) Absolute Lymphs (auto) Nucleated RBC % Differential Comment Diff Path Review PT INR APTT Sodium Potassium Chloride Carbon Dioxide Anion Gap BUN Creatinine Estim Creat Clear Calc Est GFR (MDRD) Af Amer Est GFR (MDRD) Non-Af BUN/Creatinine Ratio Glucose Lactic Acid Calcium Total Bilirubin AST ALT Alkaline Phosphatase Total Creatine Kinase Total Protein Albumin Globulin Albumin/Globulin Ratio TSH Urine Color Lilly Urine Clarity Cloudy Urine pH 6.5 Ur Specific [place] 1.015 Urine Protein 100 H Urine Glucose (UA) Normal Urine Ketones 5 H Urine Occult Blood 250 H Urine Nitrite Negative Urine Bilirubin Negative Urine Urobilinogen 1 H Ur Leukocyte Esterase 25 H Urine RBC 0-5 SEEN Urine WBC 10-25 SEEN Ur Squamous Epith Cells 0-5 SEEN Urine Bacteria 4+ Urine Mucus 0 SEEN Urine Opiates Screen Urine Methadone Screen Ur Barbiturates Screen Ur Phencyclidine Scrn Ur Amphetamines Screen MDMA (Ecstasy) Screen U Benzodiazepines Scrn Urine Cocaine Screen U Cannabinoids Screen Ur Drug Screen Comment Ethyl Alcohol POC Glucose Radiography Diagnostic Testing: Clinical Impression(s) from Imaging Studies Brain CT 12/16/22 16:05 IMPRESSION: There are no acute findings. Chronic involutional changes of the brain. Electronically Signed: James Wilkins MD at 16:41 EST , Chest X-Ray 12/16/22 16:32 IMPRESSION: There are no acute findings. Electronically Signed: James Wilkins MD at 16:43 EST , EKG Initial EKG: Attestation: I personally reviewed and interpreted this EKG as follows: Interpretation: Sinus Tachycardia Comments: ED attending interpretation of EKG is sinus tachycardia at 104 bpm, no ectopy or ST segment changes <Dr. George Han MD - Last Filed: 12/16/22 18:45> MDM MDM Narrative Medical decision making narrative: Patient had questionable seizure today and was brought in by squad. She has a history of alcohol abuse. BP 126/104, heart rate in the 140s?150s in sinus rhythm, respiratory rate in the 30s. She was brought in on nonrebreather but weaned to 2 L nasal cannula and is 94%. She is lying in bed with her eyes closed and not responsive to voice or motor stimuli. She does not follow commands. GCS 3. She is protecting her airway. Differential includes seizure, intracranial hemorrhage, metabolic abnormality, infection, polysubstance/alcohol intoxication. Broad work-up was started. Labs show white count of 13.5, hemoconcentration 17.8. She may be dehydrated. She has new thrombocytopenia at 31. Sodium and potassium are normal, anion gap 18, creatinine 1.78 is elevated from baseline consistent with EBER. She also is hypercalcemic at 14.9. AST/ALT 427/71. Total bilirubin 3.2. Glucose is 154 with anion gap of 18. She was treated with a liter of fluids. Alcohol level is negative and urine tox positive for benzos and MDMA. UA is consistent with UTI so she was given Rocephin. CT brain and CXR negative for acute findings. Patient was reassessed at 1718 and is sitting in bed with her eyes open but still not following commands. I discussed the case with the hospitalist, Dr. Pham, who added on a TSH, ABG, and lactate and accepted the patient to the ICU. Patient did have another seizure at 1804 and I ordered IV Ativan 1 mg x 1 and a loading dose of Keppra. 45 minutes of critical care time was consumed by evaluation of the patient, reviewing labs and imaging, discussion with significant other and consultants. I have personally performed a face to face assessment of the patient and have reviewed the ESSIE Note. I performed a substantive portion of the visit including all aspects of the following. My herrera findings include: History is [72-year-old female history of a prior subdural bleed. Suspected history of prior seizures. Patient herself is unable to give any history. Her significant other is here he lives with her part of the week. But he is limited on what he knows of her past medical history. Today found her slumped over at the couch at home. She was brought in by squad. She does have a history of alcohol abuse. No reported recent fall or head trauma. No witnessed seizure today. Except she had a seizure and was quad ride and was given Versed prior to arrival. Patient is unable to give me any history.] Exam is [72-year-old vital signs are stable. Blood pressure 126/104 she is tachycardic 152. Pulse ox 100% on nonrebreather. H EENT exam eyes are closed. Pupils are 2 to 3 mm bilaterally. Nondilated. No signs of head or neck trauma. Neck nontender. No lymphadenopathy. Lungs clear to auscultation. Heart tachycardic no murmur. Abdomen soft nontender. Extremities she is not moving them. Neurologically her eyes are closed. Currently she is unresponsive. She does not answer questions or follow commands. She is currently not withdrawing.] Medical Decision Making [72-year-old decreased mental status. CAT scan and labs are pending. She may or may not of had a seizure. This could be an intracranial event. This could be from intoxication.] Other additions or changes: [None] Hospitalist came down to evaluate the patient. We are planning on admit the patient to the ICU. Prior to going upstairs she had a recurrent seizure. Was treated with IV Ativan. Will be loaded with Keppra. Due to her overall medical condition the hospitalist asked that I intubate the patient 1 to protect her airway and to for better management while in the ICU. Patient was given 20 of etomidate IV and 100 of succinylcholine. Intubated using a 7/2 ET tube with a curved blade. Bilateral breath sounds were heard. The tube was at 22 at the lips. Vital signs are stable. Pulse ox is in the high 90s on the ventilator. NG will be placed. A postintubation chest x-ray will be obtained. Postintubation chest x-ray showed the ET tube about 2 cm to 3 cm above the nikko in good position. Bilateral inflated lungs. The NG was also in appropriate position in the stomach. Lab Data Attestation: I reviewed the patient's lab results. Lab results narrative: CMP shows gap of 18. BUN 22 creatinine 1.78. Glucose 154. Calcium significantly elevated 14.9. Liver enzymes are up. CBC shows an elevated white count 13.5 H&H is 17.8 and 54. Platelet count is low at 31,000. Alcohol level is negative Urinalysis is infected with 10-25 white cells 4+ bacteria. Urine culture will be sent. Talk screen was positive for ecstasy and benzo is a this. Lilly Dyson El Labs: Laboratory Results - last 24 hr 12/16/22 12/16/22 12/16/22 16:14 16:14 16:14 WBC 13.5 H RBC 5.36 Hgb 17.8 H Hct 54.1 H MCV 100.9 H MCH 33.2 H MCHC 32.9 RDW Std Deviation 53.5 H RDW Coeff of Melany 14.3 Plt Count 31 L* MPV TNP Immature Gran % (Auto) 0.700 Neut % (Auto) 71.7 H Lymph % (Auto) 12.6 L Cecil % (Auto) 10.4 H Eos % (Auto) 4.2 Baso % (Auto) 0.4 Absolute Neuts (auto) 9.7 H Absolute Lymphs (auto) 1.71 Nucleated RBC % 0 Differential Comment SCANNED Diff Path Review May foll PT INR APTT Sodium 138 Potassium 3.7 Chloride 93 L Carbon Dioxide 27.0 Anion Gap 18 H BUN 22 H Creatinine 1.78 H Estim Creat Clear Calc 23.98 Est GFR (MDRD) Af Amer 36 L Est GFR (MDRD) Non-Af 30 L BUN/Creatinine Ratio 12.4 Glucose 154 H Lactic Acid Calcium 14.9 H* Total Bilirubin 3.20 H AST 427 H ALT 71 H Alkaline Phosphatase 106 Total Creatine Kinase Total Protein 7.3 Albumin 3.1 L Globulin 4.2 Albumin/Globulin Ratio 0.7 L TSH Urine Color Urine Clarity Urine pH Ur Specific [place] Urine Protein Urine Glucose (UA) Urine Ketones Urine Occult Blood Urine Nitrite Urine Bilirubin Urine Urobilinogen Ur Leukocyte Esterase Urine RBC Urine WBC Ur Squamous Epith Cells Urine Bacteria Urine Mucus Urine Opiates Screen Urine Methadone Screen Ur Barbiturates Screen Ur Phencyclidine Scrn Ur Amphetamines Screen MDMA (Ecstasy) Screen U Benzodiazepines Scrn Urine Cocaine Screen U Cannabinoids Screen Ur Drug Screen Comment Ethyl Alcohol < 3.0 POC Glucose 12/16/22 12/16/22 12/16/22 16:15 16:19 16:19 WBC RBC Hgb Hct MCV MCH MCHC RDW Std Deviation RDW Coeff of Melany Plt Count MPV Immature Gran % (Auto) Neut % (Auto) Lymph % (Auto) Cecil % (Auto) Eos % (Auto) Baso % (Auto) Absolute Neuts (auto) Absolute Lymphs (auto) Nucleated RBC % Differential Comment Diff Path Review PT INR APTT Sodium Potassium Chloride Carbon Dioxide Anion Gap BUN Creatinine Estim Creat Clear Calc Est GFR (MDRD) Af Amer Est GFR (MDRD) Non-Af BUN/Creatinine Ratio Glucose Lactic Acid 8.4 H* Calcium Total Bilirubin AST ALT Alkaline Phosphatase Total Creatine Kinase Total Protein Albumin Globulin Albumin/Globulin Ratio TSH 19.60 H Urine Color Urine Clarity Urine pH Ur Specific [place] Urine Protein Urine Glucose (UA) Urine Ketones Urine Occult Blood Urine Nitrite Urine Bilirubin Urine Urobilinogen Ur Leukocyte Esterase Urine RBC Urine WBC Ur Squamous Epith Cells Urine Bacteria Urine Mucus Urine Opiates Screen Urine Methadone Screen Ur Barbiturates Screen Ur Phencyclidine Scrn Ur Amphetamines Screen MDMA (Ecstasy) Screen U Benzodiazepines Scrn Urine Cocaine Screen U Cannabinoids Screen Ur Drug Screen Comment Ethyl Alcohol POC Glucose 147 H 12/16/22 12/16/22 12/16/22 16:19 16:19 16:29 WBC RBC Hgb Hct MCV MCH MCHC RDW Std Deviation RDW Coeff of Melany Plt Count MPV Immature Gran % (Auto) Neut % (Auto) Lymph % (Auto) Cecil % (Auto) Eos % (Auto) Baso % (Auto) Absolute Neuts (auto) Absolute Lymphs (auto) Nucleated RBC % Differential Comment Diff Path Review PT 14.1 INR 1.1 APTT 23.5 L Sodium Potassium Chloride Carbon Dioxide Anion Gap BUN Creatinine Estim Creat Clear Calc Est GFR (MDRD) Af Amer Est GFR (MDRD) Non-Af BUN/Creatinine Ratio Glucose Lactic Acid Calcium Total Bilirubin AST ALT Alkaline Phosphatase Total Creatine Kinase 193 H Total Protein Albumin Globulin Albumin/Globulin Ratio TSH Urine Color Urine Clarity Urine pH Ur Specific [place] Urine Protein Urine Glucose (UA) Urine Ketones Urine Occult Blood Urine Nitrite Urine Bilirubin Urine Urobilinogen Ur Leukocyte Esterase Urine RBC Urine WBC Ur Squamous Epith Cells Urine Bacteria Urine Mucus Urine Opiates Screen NEGATIVE Urine Methadone Screen NEGATIVE Ur Barbiturates Screen NEGATIVE Ur Phencyclidine Scrn NEGATIVE Ur Amphetamines Screen NEGATIVE MDMA (Ecstasy) Screen POSITIVE H U Benzodiazepines Scrn POSITIVE H Urine Cocaine Screen NEGATIVE U Cannabinoids Screen NEGATIVE Ur Drug Screen Comment Ethyl Alcohol POC Glucose 12/16/22 16:29 WBC RBC Hgb Hct MCV MCH MCHC RDW Std Deviation RDW Coeff of Melany Plt Count MPV Immature Gran % (Auto) Neut % (Auto) Lymph % (Auto) Cecil % (Auto) Eos % (Auto) Baso % (Auto) Absolute Neuts (auto) Absolute Lymphs (auto) Nucleated RBC % Differential Comment Diff Path Review PT INR APTT Sodium Potassium Chloride Carbon Dioxide Anion Gap BUN Creatinine Estim Creat Clear Calc Est GFR (MDRD) Af Amer Est GFR (MDRD) Non-Af BUN/Creatinine Ratio Glucose Lactic Acid Calcium Total Bilirubin AST ALT Alkaline Phosphatase Total Creatine Kinase Total Protein Albumin Globulin Albumin/Globulin Ratio TSH Urine Color Lilly Urine Clarity Cloudy Urine pH 6.5 Ur Specific [place] 1.015 Urine Protein 100 H Urine Glucose (UA) Normal Urine Ketones 5 H Urine Occult Blood 250 H Urine Nitrite Negative Urine Bilirubin Negative Urine Urobilinogen 1 H Ur Leukocyte Esterase 25 H Urine RBC 0-5 SEEN Urine WBC 10-25 SEEN Ur Squamous Epith Cells 0-5 SEEN Urine Bacteria 4+ Urine Mucus 0 SEEN Urine Opiates Screen Urine Methadone Screen Ur Barbiturates Screen Ur Phencyclidine Scrn Ur Amphetamines Screen MDMA (Ecstasy) Screen U Benzodiazepines Scrn Urine Cocaine Screen U Cannabinoids Screen Ur Drug Screen Comment Ethyl Alcohol POC Glucose Radiography Diagnostic Testing: Clinical Impression(s) from Imaging Studies Brain CT 12/16/22 16:05 IMPRESSION: There are no acute findings. Chronic involutional changes of the brain. Electronically Signed: James Wilknis MD at 16:41 EST , Chest X-Ray 12/16/22 16:32 IMPRESSION: There are no acute findings. Electronically Signed: James Wilkins MD at 16:43 EST , <Dr. George Han MD - Last Filed: 12/16/22 18:45> Intubations Intubation Method: orotracheal Intubation Verification: Positive color change and Bilateral breath sounds confirmed Intubation Complications: no complications Other Procedures Procedure(s): Patient pretreated with 20 of etomidate IV and 100 of succinylcholine. Bilateral breath sounds were heard. Pulse ox was in the high 90s postintubation. She be placed on a ventilator. Admitted to the ICU. <Dr. George Han MD - Last Filed: 12/16/22 18:45> Critical Care Time Critical Care Time: Yes Critical care time (excluding procedures): 30-74 minutes, Including time spent:, Discussing w/Patient &/or Family/Stave Bolt Equalizer, Discussing w/Consultants, Arranging Admission or Transfer, Performing Direct Patient Care at Bedside and - (35 min) Discharge Plan Dx/Rx/DC Orders Clinical Impression: Acute UTI, Acute alteration in mental status, Thrombocytopenia, Hypercalcemia, History of ETOH abuse, Polysubstance abuse, Acute kidney injury, Seizure, Post- ictal state, Abnormal transaminases, Acute dehydration, Acidosis, lactic Disposition Disposition: [facility] Discharge Date/Time: 12/16/22 18:41 What to do if you have Problems For any increased pain, shortness of breath, bleeding, nausea or vomiting, chest pain, or any unexpected problems, contact your Primary Care Provider. Call [facility] ([phone]) or report to the closest Emergency Room. Call 911 if necessary. 12/16/22 180 <Electronically signed by Germaine LEI> Cosigner Signature (if applicable): 12/16/222213 <Electronically signed by George Han MD> CC: Dr. Khai Palacios MD ~ Signed [facility] Work Phone: [phone] History and physical note Author Dr. Pham [facility] December 16, 2022 6:23pm Note Date/Time December 16, 2022 5:29 pm [facility] Medical Records Department [address] [place] [address] H&P Exam - Hospitalist 12/16/22 1723 MR#: [id number] Acct: [id number] Name: JAZMIN JOHNSON Rep #:[id number] : 1950 72 From: Nidia Pham DO PCP: Dr. Khai Palacios MD Status:ADM I N Location: ICU CVICU20 1-1 HPI - General General Date of Admission: 12/16/22 Date of Service: 12/16/22 Chief Complaint: Seizure HPI Narrative JAZMIN JOHNSON, is a 72 F who presented to the emergency department at [facility] on 12/16/2022 for seizure. The patient is not able to give anyhistory and she is alone at the time of my evaluation. All history was obtainedfrom the emergency department physician and PA. She evidently has a history of alcohol abuse with previous subdural hematoma. Her boyfriend was reported to goto her house this afternoon and there was urine all over the floor but she otherwise seem normal. He did find a bunch of empty liquor bottles on the floor and he did report that she typically drinks daily. He went to get fast food and when he came back she was on the couch having a tonic-clonic seizure. Time of seizure is unknown. He called the paramedics and when they arrived theyadministered Versed. He reported she had a fall a couple of months ago and had a traumatic subdural hematoma and thinks she may have had a seizure at that point but is unsure of what medication she takes and if she is on any antiepileptic medication. She does have a history of DTs. And appear she has had multiple admissions for alcohol detox with very short periods of sobriety inthe past. Vital signs on presentation show a temperature of 97.6, heart rate 152 that reduced to 78 by the time of my examination, blood pressure 178/64, respiratory rate anywhere from 18-32, sats are 94 to 95% on 2 L nasal cannula. CBC shows a leukocytosis with a white count of 13.5 with a slight left shift having a 71.7% neutrophilia. Hemoglobin is elevated at 17.8 and her platelet count is low at 31,000 which is new. Coags were ordered by me and pending at the time of admission. Her chemistry panel was markedly abnormal with an elevated anion gapat 18, BUN of 22 and a serum creatinine of 1.78 (baseline serum creatinine appears to be between 0.5 and 0.7), Glu was 154, calcium was elevated at 14.9 and had been normal previously, AST was 427 and ALT was 71 consistent with an alcoholic hepatitis pattern. Bilirubin was elevated at 3.2. I obtained a CK but this was pending on admission. Lactic acid was pending on admission. TSH was 19.6. Her UA was consistent with infection having 250 of occult blood, leukesterase, 10-25 white cells per high-power field and 4+ bacteria. Her toxicology screen was positive for ecstasy and benzodiazepines. Again I am unclear what her home prescriptions are. Alcohol level was less than 3. CT of the brain showed no acute findings with chronic involutional changes. Chest x-ray showed no acute findings. EKG showed sinus tachycardia with a normal P interval but a prolonged QTc at 562. There were no ST-T wave changes consistentwith acute ischemia. [facility] Medical History AA (alcohol abuse) Alcohol abuse Anxiety Depression History of GI bleed Hyperlipidemia Hypothyroidism Polysubstance abuse Tobacco dependence Tobacco use Allergy/AdvReac Type Severity Reaction Status Date / Time No Known Allergies Allergy Verified 12/16/22 15:53 Family History Mother Heart disease Hypertension Father Heart disease Hypertension Surgical History No history of previous surgery Social History (Updated 12/16/22 @ 17:[address] Nidia Pham DO) household members: none Smoking Status: Current every day smoker tobacco type: cigarettes alcohol intake: current alcohol intake frequency: 3 or more drinks per day details: Unclear how much she has been drinking lately substance use type: does not use ROS ROS Narrative Is obtunded at the time of my exam and there is nobody at the bedside Review of Systems ROS Unobtainable: due to mental status Vital Signs Vital Signs Vital Signs: 12/16/22 15:45 12/16/22 15:54 12/16/22 16:44 Temperature 97.6 F L Temperature Source Temporal Pulse Rate 152 H 149 H 106 H Respiratory Rate 32 H 31 H 18 Blood Pressure 126/104 H 118/95 H 178/105 H Blood Pressure Mean 111 102 129 Pulse Ox 100 95 94 Oxygen Delivery Method Non-Rebreather Nasal Cannula Nasal Cannula Oxygen Flow Rate (L/min) 15 2 2 12/16/22 17:00 Temperature Temperature Source Pulse Rate 78 Respiratory Rate 18 Blood Pressure 174/64 H Blood Pressure Mean 100 Pulse Ox 94 Oxygen Delivery Method Nasal Cannula Oxygen Flow Rate (L/min) 2 Weight Weight: 71.5 kg Body Mass Index (BMI) 27.9 Physical Exam Const Constitutional Narrative: Extremely disheveled, overweight, older white female, lying in bed, obtunded buteyes open Orientation / Consciousness: lethargic HEENT normocephalic, head/scalp atraumatic and moist oral mucous membranes Eyes conjunctivae normal Eyes Narrative: Pupils were equal bilaterally but sluggish, no scleral icterus Neck no lymphadenopathy, supple, no JVD and no carotid bruits Neck Narrative: Trachea midline, no thyroid enlargement Resp normal respiratory effort, no retractions, no use of accessory muscles and No clear to auscultation bilaterally Resp Narrative: Diffusely diminished with few crackles in the right base Auscultation: crackles; Negative for rhonchi or wheezes Cardio regular rhythm, S1 normal heart sound, S2 normal heart sound, no murmurs, no rub, no gallops and no clicks Cardio Narrative: Slight tachycardia GI GI Narrative: Hepatomegaly, no distention, bowel sounds are normoactive, abdomen is soft and did not appear to be tender Extremity Extremity Narrative: Extremities are unclean, feet are extremely dry with cracking, no cyanosis or clubbing, no edema Skin No no rashes or lesions noted, no wounds, No skin turgor normal, no jaundice, nopetechiae and no mottling Skin Narrative: Patchy erythematous rash on face, neck and upper chest and just above the xiphoid process between her breasts, nails are dirty, skin turgor with tenting, no specific wounds noted Neuro moves all extremities and no focal motor deficits Neuro Narrative: Obtunded, patient withdraws to noxious stimulus in all 4 extremities, unable to assess cranial nerves, reflexes are 2+ bilateral upper and lower extremities Speech: Negative for speech normal Psych Negative for affect normal Psych Narrative: Unable to assess Results Lab / Micro Data Result Diagrams: 12/16/22 16:14 12/16/22 16:14 Labs: Laboratory Results - last 24 hr 12/16/22 16:14: WBC 13.5 H, RBC 5.36, Hgb 17.8 H, Hct 54.1 H, MCV 100.9 H, MCH 33.2 H, MCHC 32.9, RDW Std Deviation 53.5 H, RDW Coeff of Melany 14.3, Plt Count 31L*, MPV TNP, Immature Gran % (Auto) 0.700, Neut % (Auto) 71.7 H, Lymph % (Auto) 12.6 L, Cecil % (Auto) 10.4 H, Eos % (Auto) 4.2, Baso % (Auto) 0.4, Absolute Neuts (auto) 9.7 H, Absolute Lymphs (auto) 1.71, Nucleated RBC % 0, DifferentialComment SCANNED, Diff Path Review February12/16/22 16:14: Sodium 138, Potassium 3.7, Chloride 93 L, Carbon Dioxide 27.0, Anion Gap 18 H, BUN 22 H, Creatinine 1.78 H, Estim Creat Clear Calc 23.98, Est GFR (MDRD) Af Amer 36 L, Est GFR (MDRD) Non-Af 30 L, BUN/Creatinine Ratio 12.4, Glucose 154 H, Calcium 14.9 H*, Total Bilirubin 3.20 H, AST 427 H, ALT 71 H, Alkaline Phosphatase 106, Total Protein 7.3, Albumin 3.1 L, Globulin 4.2, Albumin/Globulin Ratio 0.7 L 12/16/22 16:14: Ethyl Alcohol < 3.0 12/16/22 16:15: POC Glucose 147 H 12/16/22 16:29: Urine Opiates Screen NEGATIVE, Urine Methadone Screen NEGATIVE, Ur Barbiturates Screen NEGATIVE, Ur Phencyclidine Scrn NEGATIVE, Ur AmphetaminesScreen NEGATIVE, MDMA (Ecstasy) Screen POSITIVE H, U Benzodiazepines Scrn POSITIVE H, Urine Cocaine Screen NEGATIVE, U Cannabinoids Screen NEGATIVE, Ur Drug Screen Comment 12/16/22 16:29: Urine Color Lilly, Urine Clarity Cloudy, Urine pH 6.5, Ur Specific [place] 1.015, Urine Protein 100 H, Urine Glucose (UA) Normal, Urine Ketones 5 H, Urine Occult Blood 250 H, Urine Nitrite Negative, Urine Bilirubin Negative, Urine Urobilinogen 1 H, Ur Leukocyte Esterase 25 H, Urine RBC 0-5 SEEN, Urine WBC 10- 25 SEEN, Ur Squamous Epith Cells 0-5 SEEN, Urine Bacteria 4+,Urine Mucus 0 SEEN Radiology Impression Brain CT 12/16/22 16:05 IMPRESSION: There are no acute findings. Chronic involutional changes of the brain. Electronically Signed: James Wilkins MD at 16:41 EST , Chest X-Ray 12/16/22 16:32 IMPRESSION: There are no acute findings. Electronically Signed: James Wilkins MD at 16:43 EST , Assessment & Plan Assessment/Plan (1) Seizure: (2) Acute kidney injury: (3) Acute UTI: (4) Thrombocytopenia: (5) Hypercalcemia: (6) Alcoholic hepatitis: (7) Toxic metabolic encephalopathy: (8) Leukocytosis: (9) Erythrocytosis: (10) Hyperbilirubinemia: (11) Lactic acidosis: (12) Acute respiratory failure: PLAN: Plan Acute seizure -Given Versed by the squad -Suspect alcohol withdrawal -CT of the head was unremarkable -Consider MRI depending on ongoing mental status -Check EEG -Patient with another seizure in the emergency department therefore we will loadwith Keppra and continue Keppra -Propofol for sedation -Intubated for airway protection -As needed Ativan Acute respiratory failure -Intubated for airway protection due to ongoing seizing -Repeat ABG in 2 hours after intubation to assess for stability -Pulmonary/critical care medicine consulted Acute alcohol withdrawal -We will dose with high-dose IV thiamine for 3 days -Folic acid -Propofol -As needed Ativan -Patient on Keppra for seizures -180 consultation with patient's extubated and mentally able to participate Alcoholic hepatitis/hyperbilirubinemia -Liver enzyme elevation is consistent with alcohol use pattern -We will trend -Check ultrasound of liver and spleen Elevated anion gap -Lactic acid elevated and I suspect this is related to her seizure activity -Repeat CMP at 2100 -No signs of ketosis Acute thrombocytopenia -This finding is new -Coags were relatively normal -Check ultrasound of spleen and liver -Patient is high risk for having liver disease and splenomegaly related to her alcoholism EBER -Baseline serum creatinine is between 0.5 and 0.7 -Serum creatinine 1.79 on admission -Aggressive IV fluids with normal saline at 100 cc/h -Repeat BMP in a.m. Urinary tract infection -UA is consistent with UTI -Unasyn to cover her urinary tract infection as well as concern for aspiration with seizure activity Hypercalcemia -Etiology is unclear -Check intact PTH -Check vitamin D level -Aggressive hydration -Repeat CMP at 2100 -May be contributing to her depressed mental status Metabolic/toxic encephalopathy -Suspect multifactorial -Baseline is unclear -Continue to monitor Prolonged QTc -Check a.m. magnesium and phosphorus level -Repeat EKG in a.m. Erythrocytosis -Suspect multifactorial -Appears dry but also has a history of tobacco abuse and it appears that she hasbeen elevated previously -Probably should have pulmonary function studies after discharge History of hypothyroidism with abnormal TSH -TSH assessed on admission and found to be 19.6 -We will dose 50 mcg of Synthroid IV x1 today and then repeat weekly -Check free T4 History of GI bleed -IV Protonix 40 mg twice daily given suppressed platelet counts -Repeat CBC in a.m. History of hyperlipidemia -Patient is not currently on any medications to her knowledge Anxiety/depression -We are unclear what medications patient takes at baseline -Hold all QTc prolonging medications -Do not use Haldol Tobacco abuse -We will offer nicotine patch once patient is awake -Recommend cessation -Needs outpatient PFTs DVT prophylaxis -SCDs only -Platelet count is less than 50,000 therefore will defer chemoprophylaxis at this point CODE STATUS -Full code but unverified as I was unable to have a conversation with the patient at admission secondary to her mental status and there was no one available to discuss at the bedside Charges/Coding Visit Charges Inpatient E&M: 16063 Init Hosp L3 12/16/22 1823 <Electronically signed by Nidia Pham DO> Cosigner Signature (if applicable): CC: Dr. Nidia Pham DO; Dr. Khai Palacios MD~ Signed [facility] Work Phone: [phone]) 141-417801-09-2023 Miscellaneous Notes* Telephone Encounter - Yakov Ramos Pss - 10/22/2022 1:56 PM EST 2nd attempt to schedule this patient for TBI clinic. * Telephone Encounter - Yakov Caal - 09/19/2022 8:49 AM EST Called the patient, left voicemail with instructions to call back once they are able to schedule with the TBI Clinic for eval. Patient is currently admitted to the hospital. [facility]12[facility]12-13[facility]12[facility]13[facility]12[facility]13[facility]12-12-2022 History of Past illness Narrative* Problem Noted Date Resolved Date Malnutrition of mild degree 09/24/202209/13 Hypophosphatemia 09/16/2022 09/27/2022 Hypokalemia 09/15/2022 09/27/2022 Elevated liver enzymes 09/15/2022 2 documented as of this encounter (statuses as of 10/22/2022) [facility] History of Past illness Narrative* Problem Noted Date Resolved Date Malnutrition of mild degree 09/24/202209/13 Hypophosphatemia 09/16/2022 09/27/2022 Hypokalemia 09/15/2022 09/27/2022 Elevated liver enzymes 09/15/2022 2 documented as of this encounter (statuses as of 12/18/2022) [facility]12-11-[facility]12-10-[facility]22 [facility]12-09-2022 Note [facility]12[facility] 09-20-[address]22 [facility]12-07-2022 [facility]12-07-[facility]22 [facility]12-07-[facility]12-07-[facility]22 [facility]12-06-[facility]22 [facility]12-05-[facility]12-04-2022 Note [facility]12[facility] 03-17-2021 History of Present illness Narrative* Lakshmi Kennedy MSW [employer] - 03/17/2021 10:18 AM EDT DISCHARGE PLAN PROGRESS NOTE Date: 03/17/2021 Time: 10:18 AM Patient Name: Jazmin Johnson Date of : 1950 Sex: Female ARMATURE BANDER scheduled [facility] yellow cab for pt dc. ARMATURE BANDER met w/ pt at bedside and confirmed address of dc ispt's sister, Nadia Clarita: [address] [phone]. ARMATURE BANDER LVM w/ pt's sister (P: [phone]). Per Yellow Cab, city route driver will call when on the way to pick pt up. Pt is to report to the red entrance of [facility] for medicinal plant picker. No additional needs identified. ADDENDUM @ 10:49am Received update pt belongings are at [facility]. Cab address updated to take pt there per pt request: [address] [place] [address] [place] [address]. Updated bedside RN. No additional needs identified. Anticipated Discharge Plan Anticipated HME: Undetermined Anticipated Home Care Needs: Undetermined Anticipated Facility Type: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 range of motion. No jugular venous distention. Trachea midline. No lymphadenopathy. Respiratory: Normal respiratory effort. Clear to auscultation, bilaterally without Rales/Wheezes/Rhonchi. Cardiovascular: Regular rate and rhythm with normal S1/S2 without murmurs, rubs or gallops. Abdomen: Soft, non-tender, non-distended with normal bowel sounds. No rebound or guarding. Musculoskeletal: No clubbing, cyanosis or edema bilaterally. Full range of motion without deformity. Skin: Skin color, texture, turgor normal. No rashes or lesions. Neurologic: Neurovascularly intact without any focal sensory/motor deficits. Cranial nerves: II-XIIintact, grossly non-focal. Discharge Medications: Jazmin Johnson Home Medication Instructions EBONY:[id number] Printed on:02/18/21 1220 Medication Information docusate (COLACE, DULCOLAX) 100 MG CAPS Take 100 mg by mouth 2 times daily DULoxetine (CYMBALTA) 60 MG extended release capsule Take 60 mg by mouth daily folic acid (FOLVITE) 1 MG tablet Take 1 tablet by mouth daily Hyaluronic Acid-Vitamin C (HYALURONIC ACID PO) Take 100 mg by mouth daily hydrOXYzine (ATARAX) 25 MG tablet Take 12.5 mg by mouth every 6 hours as needed Lactobacillus (ACIDOPHILUS PO) Take by mouth daily levothyroxine (SYNTHROID) 50 MCG tablet Take 1 tablet by mouth Daily meclizine (ANTIVERT) 25 MG tablet Take 25 mg by mouth 3 times daily as needed melatonin 3 MG TABS tablet Take 1 tablet by mouth nightly Multiple Vitamins-Minerals (THERAPEUTIC MULTIVITAMIN-MINERALS) tablet Take 1 tablet by mouth daily QUEtiapine (SEROQUEL) 50 MG tablet Take 1 tablet by mouth nightly thiamine mononitrate 100 MG tablet Take 1 tablet by mouth daily traZODone (DESYREL) 50 MG tablet Take 100 mg by mouth nightly Has two different prescriptions, one for 100mg nightly, and one for 100mg two tabs nightly (only takes one pill per pt) vitamin B-12 500 MCG tablet Take 1 tablet by mouth daily vitamin D (ERGOCALCIFEROL) 1.25 MG (07429 UT) CAPS capsule Take 1 capsule by mouth once a week Recommended Follow-up: Frank Palacios MD [id number] [facility] [address] Schedule an appointment as soon as possible for a visit in 2 days Complexity of Follow up: [] Moderate Complexity: follow up within 7-14 calendar days (13883) [x] Severe Complexity: follow up within 7 calendar days (98919) Follow up Testing, Pending results or Referrals at Transitional Care Visit: [x] yes [] no Instructions to MA: Please call patient on day after discharge (must document patient contacted within 2 business days of discharge). Follow up questions for MA: 1. Did you get medications filled and taking them as instructed from discharge? 2. Are you following your discharge instructions from your hospital stay? 3. Please confirm patient is scheduled for a follow up appointment within the above time frame. Signed: Rafael Castillo MD [facility] 02/18/2021, 12:20 PM Time Spent on discharge exceeded 35 minutes discussing plan of care and discharge medications with patient and nursing staff documented in this [facility] Work Phone: 1(240) 584-165805-08-2021 History of Present illness Narrative* Rafael Castillo MD - 02/18/2021 11:42 AM EDT Family Communication Number Called: [phone] Name of Designated Family Sugar Refiner: Jessica Johnson Relationship to Patient: daughter Phone Call Outcome: There was no answer when the number listed above was called. Family Sugar Refiner Updated on the Following: Lack of destination at discharge; Refusing SNF; Unsafe discharge at this time Family Communication Number Called: [phone] Name of Designated Family Sugar Refiner: Suni Relationship to Patient: Sister Phone Call Outcome: There was no answer when the number listed above was called. Family Sugar Refiner Updated on the Following: Lack of destination at discharge; Refusing SNF; Unsafe discharge at this time * Rafael Castillo MD - 02/18/2021 7:33 AM EDT Images from the original note were not included. Hospitalist Progress Note 02/18/2021 7:33 AM [phone]: Please page [place] [phone] for patient care issues. [phone]: Please page [facility] night Hospitalist for any issues. Subjective: Admit Date: 02/15/2021 PCP: FRANK PALACIOS MD Interval History: Eating breakfast without issue. Still without a place to go after discharge. States she will find a hotel but has no plan at this time. Made it very clear that if you are refusingany placement, I would not medically discharge her without information on where she would go. She understood. No overnight issues. Denies chest pain, sob, abdominal pain, nausea, vomiting, diarrhea, constipation, fevers, or chills. DIET GENERAL; Patient Vitals for the past 96 hrs (Last 3 readings): Weight 02/15/21 1136 125 lb (56.7 kg) No intake/output data recorded. Medications: sodium chloride 50 mL/hr at 02/15/21 2332 sodium chloride sodium chloride traZODone 100 mg Oral Nightly PHENobarbital 32.4 mg Oral Q4H thiamine 100 mg Oral Q8H sodium chloride 250 mL Intravenous Once docusate sodium 100 mg Oral BID DULoxetine 60 mg Oral Daily folic acid 1 mg Oral Daily levothyroxine 50 mcg Oral Daily QUEtiapine 50 mg Oral Nightly cyanocobalamin 500 mcg Oral Daily sodium chloride flush 5-40 mL Intravenous 2 times per day enoxaparin 40 mg Subcutaneous Daily aspirin 81 mg Oral Daily Or aspirin 300 mg Rectal Daily atorvastatin 80 mg Oral Nightly sodium chloride flush 5-40 mL Intravenous 2 times per day LABS: CBC: Recent Labs 02/16/21 0456 02/17/21 0650 02/18/21 0333 WBC 4.1 6.1 4.4 RBC 3.91 4.36 3.93 HGB 13.1 14.4 13.0 HCT 37.8 42.2 38.7 MCV 96.6 96.8 98.3* RDW 15.0* 13.9 14.1 PLT 123* 119* 119* BMP: Recent Labs 02/16/21 0659 02/17/21 0650 02/18/21 0333 NA 134* 134* 137 K 3.6 3.6 3.4* CL 105 105 110* CO2 21* 25 23 BUN 10 10 10 CREATININE 0.54 0.50* 0.47* GLUCOSE 74 97 94 CALCIUM 8.8 9.1 9.0 ANIONGAP 8 4 4 LIVER PROFILE:No results for input(s): AST, ALT, BILITOT, ALKPHOS, LABALBU, PROT in the last 72 hours. PT/INR: Recent Labs 02/15/21 1208 PROTIME 11.1 INR 1.0 CARDIAC ENZYMES: Recent Labs 02/15/21 1209 TROPONINI <0.012 Procalcitonin: Lab Results Component Value Date PROCAL <0.10 11/14/2020 Glucose: Recent Labs 02/15/21 1149 POCGLU 77 Objective: Vitals: BP 112/73 Pulse 96 Temp 97.1 F (36.2 C) (Temporal) Resp 17 Ht 5' (1.524 m) Wt 125lb (56.7 kg) SpO2 95% BMI 24.41 kg/m Pulse Ox: SpO2 Av.6 % Min: 95 % Max: 99 % Supplemental O2: General appearance: No apparent distress, appears stated age and cooperative with exam. Only with mild aphasia today, no slurred speech; Random tremor of jaw and right arm improved; AAO x 2 HEENT: Normal cephalic, atraumatic without obvious deformity. Pupils equal, round, and reactive to light. Extra ocular muscles intact. Conjunctivae/corneas clear. Neck: Supple, with full range of motion. No jugular venous distention. Trachea midline. No lymphadenopathy. Respiratory: Normal respiratory effort. Clear to auscultation, bilaterally without Rales/Wheezes/Rhonchi. Cardiovascular: Regular rate and rhythm with normal S1/S2 without murmurs, rubs or gallops. Abdomen: Soft, non-tender, non-distended with normal bowel sounds. No rebound or guarding. Musculoskeletal: No clubbing, cyanosis or edema bilaterally. Full range of motion without deformity. Skin: Skin color, texture, turgor normal. No rashes or lesions. Neurologic: NIH 1 for aphasia only today; Otherwise, Neurovascularly intact without any focal sensory/motor deficits. Cranial nerves: II-XII intact, grossly non-focal. Assessment 1. Acute Aphasia/ Slurred Speech/ Encephalopathy - Concern for CVA vs ETOH withdrawal; MRI/MRAs without acute infarct; CIWA; Phenobarb; Addiction signed off 2. ETOH use disorder - Possible withdrawal; CIWA/ Phenobarb 3. Hypokalemia 4. Hypomagnesemia 5. Anxiety 6. Depression 7. HLD 8. Hypothyroidism 9. Hx of TBI/ subdural hematoma Diagnosis Date Alcohol abuse Anxiety and depression COVID-19 Hyperlipidemia Opiate addiction (HCC) reported by family Thyroid disease Traumatic brain injury (HCC) 10/2020 Plan - Refusing placement - Unsafe discharge unless pt with known destination upon discharge given hx of TBI -am labs, replace lytes prn -increase activity -DVT prophylaxis: [x] Lovenox [] Heparin [] SCDs [x] Encourage ambulation [] Already on Anticoagulation Advance Directive: Full Code Discharge plannin-48 hours Rafael Castillo MD Division of Hospitalist Medicine Inpatient Medical Services PAGER: [phone] * Rafael Castillo MD - 02/17/2021 3:15 PM EDT Family Communication Number Called: [phone] Name of Designated Family Sugar Refiner: Jessica Johnson Relationship to Patient: daughter Phone Call Outcome: There was no answer when the number listed above was called. Family Sugar Refiner Updated on the Following: Likely discharge tomorrow * Gustavo Shoemaker MD - 02/17/2021 2:48 PM EDT Images from the original note were not included. CHEMICAL DEPENDENCY PROGRESS NOTE PATIENT: Jazmin Johnson [facility] complaint Chief Complaint Patient presents with Altered Mental Status x one day Seen for follow up of substance dependence and use and to monitor withdrawals S: Patient seen and examined. Overall symptoms improving. REVIEW OF SYMPTOMS: Patient denies CP or SOB.Denies audio-, visual or tactile hallucinations. Denies dizziness or visual changes. Denies acute pain. Denies rhinorrhea, lacrimation, cough or sore throat. No difficulty ambulating, urinating, swallowing. Denies rash O: Vitals: 02/17/21 0741 BP: 121/88 Pulse: 90 Resp: 16 Temp: 98.1 F (36.7 C) SpO2: 96% Patient seen and examined. Alert and oriented x 3. NAD. Head: NCAT. Skin: warm, dry Insight and judgement are fair. Denies suicidal or homocidal ideation. Cognition intact. Denies audio, visual or tactile hallucinations. Not responding to internal stimuli, good eye contact. Recent Results (from the past 24 hour(s)) CBC Collection Time: 02/17/21 6:50 AM Result Value Ref Range WBC 6.1 3.6 - 10.7 10*3/uL RBC 4.36 3.80 - 5.20 10*6/uL Hemoglobin 14.4 11.7 - 16.0 g/dL Hematocrit 42.2 35.0 - 47.0 % MCV 96.8 79.0 - 98.0 fL MCH 33.1 26.0 - 34.0 pg MCHC 34.2 32.0 - 36.0 % RDW 13.9 11.5 - 14.5 % Platelets 119 (L) 140 - 440 10*3/uL MPV 8.2 7.4 - 10.4 fL Basic Metabolic Panel w/ Reflex to MG Collection Time: 02/17/21 6:50 AM Result Value Ref Range Sodium 134 (L) 135 - 145 mmol/L Potassium 3.6 3.5 - 5.1 mmol/L Chloride 105 98 - 107 mmol/L CO2 25 22 - 30 mmol/L Anion Gap 4 3 - 13 mmol/L Glucose 97 70 - 100 mg/dL BUN 10 7 - 20 mg/dL CREATININE 0.50 (L) 0.52 - 1.25 mg/dL eGFR >90.0 >60 mL/min EGFR IF NonAfrican Eritrean >90.0 >60 mL/min Calcium 9.1 8.4 - 10.4 mg/dL Assessment/Plan: alcohol use disorder severe with withdrawal Day # 4 of no use Evaluated the patient ciwa score and is low, and will adjust the phenobarb according to his currentsymptoms Anticipate 1 extra days of detox Ok to d/c form adm point in am Remaining medical management per primary team. Addiction medicine signing off. Please Recall if further assistance needed. I spent over 51% of total time 35 minutes counseling and coordinating care and provided discussion regarding this patient's condition ,chemical dependency, psychiatric and medical history, symptoms and signs , reviewing past detoxification hospitalizations, assessing withdrawal status, evaluating de toxification medications, and discussing lab work and treatment plan, with providing options. GUSTAVO SHOEMAKER MD Addiction Medicine 02/17/2021 at 2:48 PM * Cadence Monterroso, TAX COMMISSIONER - 02/17/2021 9:21 AM EDT Physical Therapy Facility/Department: [facility] Daily Treatment Note NAME: Jazmin Johnson : 1950 Date of Service: 02/17/2021 Discharge Recommendations: Continue to assess pending progress(facility based rehab) Assessment Assessment: Pt demonstrates ability to mobilize with decreased safety awareness and decreased willingness to accept instruction. Pt reports continuously having dizziness and did demonstrate a drop inBP with standing but demonstrated no balance loss with activity. Pt would benefit from continued therapy to further improve safety and strength for increased independence. PT Education: Goals;PT Role;Plan of Care;Transfer Training;Functional Mobility Training;Gait Training REQUIRES PT FOLLOW UP: Yes Activity Tolerance Activity Tolerance: Pt limited Patient Diagnosis(es): The encounter diagnosis was Altered mental status, unspecified altered mental status type. has a past medical history of Alcohol abuse, Anxiety and depression, COVID-19, Hyperlipidemia, Opiate addiction (HCC), Thyroid disease, and Traumatic brain injury (HCC). has a past surgical history that includes Colonoscopy and Endoscopy, colon, diagnostic. Restrictions Restrictions/Precautions Restrictions/Precautions: General Precautions, Fall Risk(IV, CIWA protocol) Required Braces or Orthoses?: No Subjective General Chart Reviewed: Yes Family / Caregiver Present: No Subjective Subjective: Pt lying in bed. Reports she is dizzy but stated getting up to go to BR while feeling this way. Pt reports she has been dizzy for months but states it is worse today. Pain Screening Patient Currently in Pain: Denies Vital Signs Orthostatic B/P and Pulse?: Yes Blood Pressure Lyin/102(Pt dizzy before taken) Pulse Lyin PER MINUTE Blood Pressure Sittin/93(Pt dizzy with no change) Pulse Sittin PER MINUTE Blood Pressure Standin/83(Pt reports feeling slightly worse) Pulse Standin PER MINUTE Objective Bed mobility Supine to Sit: Supervision Sit to Supine: Supervision Comment: Pt does tend to move quickly even with being dizzy to start. Pt reports no change in dizziness with postional change Transfers Sit to Stand: Stand by assistance Stand to sit: Stand by assistance Comment: of 1 for safety with poor hand placement wit use of FWW and sets to side before sitting down. No balance loss occurred Ambulation 1 Surface: level tile Device: Rolling Walker Other Apparatus: (IV in tow) Assistance: Minimal assistance(of 1 for safety) Quality of Gait: Pt walks with a quick reciprical pace with tendency to have walker too advanced even with cueing and tends to stand to side of walker vs in middle. Distance: 25' x 1 and 100' x 1 Comments: Pt not open to instruction Exercises Comments: Declined to do more at this time. Stated she does her own at home. Explained rational to determine safety of beig at home and reported she doesn't care she will do it on her own Goals Short term goals Time Frame for Short term goals: 5 visits Short term goal 1: Patient will perform bed mobility MOD I.(progressing) Short term goal 2: Patient will perform transfers MOD I.(progressing) Short term goal 3: Patient will ambulate 100' MOD I with LRD.(progressing) Short term goal 4: Patient will navigate 12 stairs with 1 HR MOD I.(na) Short term goal 5: Patient will complete 2-3 sets/ 10 reps LE exercises to increase strength for functional activity.(na) Patient Goals Patient goals : To return home Plan Plan Times per week: 4 visits Current Treatment Recommendations: (Cont ther ex and functional training) Plan Comment: All goals and/or treatment were established in collaboration with patient. Safety Devices Type of devices: All fall risk precautions in place, Gait belt, Patient at risk for falls, Left in bed, Call light within reach, Bed alarm in place, Nurse notified Therapy Time Individual Concurrent Group Co-treatment Time In 0840 Time Out 0900 Minutes 20 Timed Code Treatment Minutes: 11 Minutes(gait) Cadence Monterroso PTA * Rafael Castillo MD - 02/17/2021 8:53 AM EDT Images from the original note were not included. Hospitalist Progress Note 02/17/2021 8:53 AM [phone]: Please page [place] [phone] for patient care issues. [phone]: Please page [facility] night Hospitalist for any issues. Subjective: Admit Date: 02/15/2021 PCP: FRANK PALACIOS MD Interval History: Speech improving. Still did not get MRI/ MRAs yet. No overnight issues. Denies chest pain, sob, abdominal pain, nausea, vomiting, diarrhea, constipation, fevers, or chills. DIET GENERAL; Patient Vitals for the past 96 hrs (Last 3 readings): Weight 02/15/21 1136 125 lb (56.7 kg) In: - Out: 350 [Urine:350] Medications: sodium chloride 50 mL/hr at 02/15/21 2332 sodium chloride sodium chloride PHENobarbital 64.8 mg Oral Q4H thiamine 100 mg Oral Q8H sodium chloride 250 mL Intravenous Once docusate sodium 100 mg Oral BID DULoxetine 60 mg Oral Daily folic acid 1 mg Oral Daily levothyroxine 50 mcg Oral Daily melatonin 3 mg Oral Nightly QUEtiapine 50 mg Oral Nightly cyanocobalamin 500 mcg Oral Daily sodium chloride flush 5-40 mL Intravenous 2 times per day enoxaparin 40 mg Subcutaneous Daily aspirin 81 mg Oral Daily Or aspirin 300 mg Rectal Daily atorvastatin 80 mg Oral Nightly sodium chloride flush 5-40 mL Intravenous 2 times per day LABS: CBC: Recent Labs 02/15/21 1208 02/16/21 0456 02/17/21 0650 WBC 9.5 4.1 6.1 RBC 3.84 3.91 4.36 HGB 12.9 13.1 14.4 HCT 37.4 37.8 42.2 MCV 97.4 96.6 96.8 RDW 14.1 15.0* 13.9 PLT 179 123* 119* BMP: Recent Labs 02/16/21 0659 02/17/21 0650 NA 134* 134* K 3.6 3.6 CL 105 105 CO2 21* 25 BUN 10 10 CREATININE 0.54 0.50* GLUCOSE 74 97 CALCIUM 8.8 9.1 ANIONGAP 8 4 LIVER PROFILE:No results for input(s): AST, ALT, BILITOT, ALKPHOS, LABALBU, PROT in the last 72 hours. PT/INR: Recent Labs 02/15/21 1208 PROTIME 11.1 INR 1.0 CARDIAC ENZYMES: Recent Labs 02/15/21 1209 TROPONINI <0.012 Procalcitonin: Lab Results Component Value Date PROCAL <0.10 11/14/2020 Glucose: Recent Labs 02/15/21 1149 POCGLU 77 Objective: Vitals: BP 121/88 Pulse 90 Temp 98.1 F (36.7 C) (Temporal) Resp 16 Ht 5' (1.524 m) Wt 125lb (56.7 kg) SpO2 96% BMI 24.41 kg/m Pulse Ox: SpO2 Av.5 % Min: 96 % Max: 99 % Supplemental O2: General appearance: No apparent distress, appears stated age and cooperative with exam. Only with mild aphasia today, no slurred speech; Random tremor of jaw and right arm improved; AAO x 2 HEENT: Normal cephalic, atraumatic without obvious deformity. Pupils equal, round, and reactive to light. Extra ocular muscles intact. Conjunctivae/corneas clear. Neck: Supple, with full range of motion. No jugular venous distention. Trachea midline. No lymphadenopathy. Respiratory: Normal respiratory effort. Clear to auscultation, bilaterally without Rales/Wheezes/Rhonchi. Cardiovascular: Regular rate and rhythm with normal S1/S2 without murmurs, rubs or gallops. Abdomen: Soft, non-tender, non-distended with normal bowel sounds. No rebound or guarding. Musculoskeletal: No clubbing, cyanosis or edema bilaterally. Full range of motion without deformity. Skin: Skin color, texture, turgor normal. No rashes or lesions. Neurologic: NIH 1 for aphasia only today; Otherwise, Neurovascularly intact without any focal sensory/motor deficits. Cranial nerves: II-XII intact, grossly non-focal. Assessment 1. Acute Aphasia/ Slurred Speech/ Encephalopathy - Concern for CVA vs ETOH withdrawal; MRI/MRAs; CIWA; Phenobarb; Addiction following 2. ETOH use disorder - Possible withdrawal; CIWA/ Pehnobarb 3. Anxiety 4. Depression 5. HLD 6. Hypothyroidism Diagnosis Date Alcohol abuse Anxiety and depression COVID-19 Hyperlipidemia Opiate addiction (HCC) reported by family Thyroid disease Traumatic brain injury (HCC) 10/2020 Plan - Imaging - Addiction - Possible placement -am labs, replace lytes prn -increase activity -DVT prophylaxis: [x] Lovenox [] Heparin [] SCDs [x] Encourage ambulation [] Already on Anticoagulation Advance Directive: Full Code Discharge plannin-48 hours Rafael Castillo MD Division of Hospitalist Medicine Inpatient Medical Services PAGER: [phone] * Emily Snell - 02/17/2021 8:41 AM EDT Nutrition rescreen completed. Patient referred to the Dietitian. * Gisele Rashid PT - 02/16/2021 4:27 PM EDT Physical Therapy Facility/Department: [facility] Initial Assessment NAME: Jazmin Johnson : 1950 Date of Service: 02/16/2021 Having reviewed the treatment plan and goals for this patient, I certify that the plan of care below is medically necessary and appropriate. Discharge Recommendations: Continue to assess pending progress(facility based rehab) PT Equipment Recommendations Equipment Needed: No Assessment Body structures, Functions, Activity limitations: Decreased functional mobility ;Decreased strength;Decreased safe awareness;Decreased cognition;Decreased endurance;Decreased balance Assessment: Pt admitted to ED 02/15 due to altered mental status and substance dependence disorder. Pt presents with the above deficits limiting her functional mobility. Pt has significant cognitive deficits and requires supervision-SBA for bed mobility and transfers and Sejal for ambulation with no device and CGA with FWW. Patient has decreased safety awareness and impulsive behavior placing her sylvester high fall risk. Pt is currently below baseline and unsafe to return home due to decreased cognition, safety, and balance. Pt should benefit from skilled PT to increase safety and indepedence withmobility. Prognosis: Good;Guarded Decision Making: Medium Complexity History: Pt admitted to ED 02/15 due to altered mental status and substance dependence disorder. MRI pending, CT results negative for acute processes, TBI 10/2020 with right parietal fracture Exam: AM-PAC Clinical Presentation: Pt has PMH as indicated below that contribute to her clinical presentation. She is currently homeless, living in a motel, and came to ED from [facility] department with alterned mental status. Patient currently requires increased assist with mobility and has significantdecrease in cognition placing her at a high fall risk. Patient is unsafe to return to living independently and would benefit from facility based rehab upon discharge. PT Education: Goals;PT Role;Plan of Care;Precautions;Transfer Training;General Safety;Functional Mobility Training;Gait Training;Injury Prevention REQUIRES PT FOLLOW UP: Yes Activity Tolerance Activity Tolerance: Patient limited by cognitive status;Patient limited by endurance Patient Diagnosis(es): The encounter diagnosis was Altered mental status, unspecified altered mental status type. has a past medical history of Alcohol abuse, Anxiety and depression, COVID-19, Hyperlipidemia, Opiate addiction (HCC), Thyroid disease, and Traumatic brain injury (HCC). has a past surgical history that includes Colonoscopy and Endoscopy, colon, diagnostic. Restrictions Restrictions/Precautions Restrictions/Precautions: General Precautions, Fall Risk(IV, CIWA protocol) Required Braces or Orthoses?: No Vision/Hearing Vision: Within Functional Limits Hearing: Within functional limits Subjective General Chart Reviewed: Yes Patient assessed for rehabilitation services?: Yes Family / Caregiver Present: No Follows Commands: Within Functional Limits General Comment Comments: Per RN patient okay for therapy. Subjective Subjective: Patient is lying in bed ordering her dinner and agrees to therapy. Pain Screening Patient Currently in Pain: Denies Vital Signs Patient Currently in Pain: Denies Orientation Orientation Overall Orientation Status: Impaired Orientation Level: Disoriented to situation Social/Functional History Social/Functional History Lives With: Alone Type of Home: Homeless(STATES IS LIVING IN HOTELS) Home Access: Level entry Bathroom Shower/Tub: Tub/Shower unit Bathroom Toilet: Standard Bathroom Equipment: (LIVES IN HOTEL) Bathroom Accessibility: Walker accessible Home Equipment: (DENIES) Receives Help From: Family, Friend(s) ADL Assistance: Independent Homemaking Assistance: Needs assistance Homemaking Responsibilities: Yes Ambulation Assistance: Independent Transfer Assistance: Independent Active Mortuary Operations Manager: No Patient's Mortuary Operations Manager Info: FRIENDS OR FAMILY Education: HAD SOME COLLEGE Occupation: Retired Type of occupation: WORKED WITH [employer] Leisure & Hobbies: NA IADL Comments: NA Additional Comments: Pt reported I have stayed at hotels but they are owned by concessions manager so I won't go. Additionally, pt reports drinking less than a small bottle of vodka each day. Cognition Cognition Overall Cognitive Status: Exceptions Arousal/Alertness: Appropriate responses to stimuli Following Commands: Follows one step commands with increased time Attention Span: Attends with cues to redirect Memory: Decreased recall of biographical Information;Decreased recall of recent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 heard, RRR Respiratory: Decrease breath sound both bases Abdomen: Soft, non-tender, non-distended with normal bowel sounds. Extremity- no peripheral edema both lower extremities Assessment Acute encephalopathy- resolved, multifactorial secondary to alcohol abuse/withdrawal, hyponatremia,subdural hematoma Chronic subdural hematoma Alcohol abuse/withdrawal Debility Hyponatremia, resolved Impaired gait/mobility Macrocytosis secondary to ethanol abuse-B12, folate normal Abnormal LFT secondary to ethanol abuse- hepatitis B, C panel negative Hypothyroidism Hyperlipidemia Anxiety/depression History of opiate addiction in past Vitamin D deficiency Status post covid pneumonia treated in November 2020 Medical noncompliance Plan Neurosurgical team recommendation noted Continue current treatment PT recommended prison facility SCDs for deep vein thrombosis prophylaxis Protonix for gastrointestinal prophylaxis Patient was informed about all work up and treatment plan Discussed with nursing staff, likely discharge to facility at [facility] when insurance approved Advance Directive: Full Code Discharge planning: Endy Mauricio MD Division of Hospitalist Medicine Inpatient Medical Services PAGER: [phone] * Endy Mauricio MD - 12/26/2020 3:21 PM EDT Images from the original note were not included. Hospitalist Progress Note 12/26/2020 3:22 PM [phone]: Please page me for patient care issues. [phone]: Please page [facility] night Hospitalist for any issues. Subjective: Admit Date: 12/12/2020 PCP: FRANK PALACIOS MD Room#: [id number] Interval History: Patient seen and examined No new event overnight Denies any chest pain , sob , cough , sputum No abdominal pain, nausea, vomiting, fever spike noted Having regular bowel movements Sodium yesterday was 137, potassium 4.1, creatinine 0.49, glucose 92 covid test negative DIET GENERAL; No data found. Medications: DULoxetine 60 mg Oral Daily QUEtiapine 50 mg Oral Nightly vitamin B-12 500 mcg Oral Daily docusate sodium 100 mg Oral BID folic acid 1 mg Oral Daily acidophilus probiotic 1 capsule Oral Daily levothyroxine 50 mcg Oral Daily melatonin 3 mg Oral Nightly therapeutic multivitamin-minerals 1 tablet Oral Daily vitamin D 50,000 Units Oral Weekly pantoprazole 40 mg Oral QAM AC thiamine mononitrate 100 mg Oral TID sodium chloride flush 3 mL Intravenous Q8H sodium chloride flush 3 mL Intravenous Q8H sodium chloride flush 10 mL Intravenous 2 times per day LABS: CBC: No results for input(s): WBC, RBC, HGB, HCT, MCV, RDW, PLT in the last 72 hours. BMP: Recent Labs 12/24/20 1644 12/25/20 0015 NA 135 137 K 4.1 4.1 CL 104 104 CO2 22 25 BUN 10 8 CREATININE 0.50* 0.49* GLUCOSE 126* 92 CALCIUM 9.4 9.4 ANIONGAP 10 9 LIVER PROFILE: No results for input(s): AST, ALT, BILITOT, ALKPHOS, LABALBU, PROT in the last 72 hours. PT/INR: No results for input(s): PROTIME, INR in the last 72 hours. CARDIAC ENZYMES: No results for input(s): TROPONINI in the last 72 hours. Procalcitonin: Lab Results Component Value Date PROCAL <0.10 11/14/2020 Objective: Vitals: BP 125/71 Pulse 83 Temp 97.8 F (36.6 C) (Temporal) Resp 16 Ht 5' 4 (1.626 m) Wt 128 lb (58.1 kg) SpO2 97% BMI 21.97 kg/m Pulse Ox: SpO2 Av.5 % Min: 95 % Max: 100 % Supplemental O2: General appearance: No apparent distress, HEENT: Eyes: No scleral icterus Oral: Tongue is semi-moist Cardiovascular: S1S2 heard, RRR Respiratory: Decrease breath sound both bases Abdomen: Soft, non-tender, non-distended with normal bowel sounds. Extremity- no peripheral edema both lower extremities Assessment Acute encephalopathy- resolved, multifactorial secondary to alcohol abuse/withdrawal, hyponatremia,subdural hematoma Chronic subdural hematoma Alcohol abuse/withdrawal Debility Hyponatremia, resolved Impaired gait/mobility Hypokalemia, replaced Hypomagnesemia , replaced Macrocytosis secondary to ethanol abuse-B12, folate normal Abnormal LFT secondary to ethanol abuse- hepatitis B, C panel negative Hypothyroidism Hyperlipidemia Anxiety/depression History of opiate addiction in past Vitamin D deficiency Status post covid pneumonia treated in November 2020 Medical noncompliance Plan Neurosurgical team recommendation noted Continue current treatment PT recommended prison facility SCDs for deep vein thrombosis prophylaxis Protonix for gastrointestinal prophylaxis Patient and her [id number] was informed about all work up and treatment plan Discussed with nursing staff, likely discharge to facility at [facility] tomorrow Advance Directive: Full Code Discharge planning: DC to prison facility when approved Endy Mauricio MD Division of Hospitalist Medicine Inpatient Medical Services PAGER: [phone] * Rah Mann MD - 12/26/2020 1:28 PM EDT [facility] [address] [place] [address] Progress Note Subjective: Patient seen and examined today. We are following this patient for hna Except some dizziness on and off no other c/o Scheduled Meds: DULoxetine 60 mg Oral Daily QUEtiapine 50 mg Oral Nightly vitamin B-12 500 mcg Oral Daily docusate sodium 100 mg Oral BID folic acid 1 mg Oral Daily acidophilus probiotic 1 capsule Oral Daily levothyroxine 50 mcg Oral Daily melatonin 3 mg Oral Nightly therapeutic multivitamin-minerals 1 tablet Oral Daily vitamin D 50,000 Units Oral Weekly pantoprazole 40 mg Oral QAM AC thiamine mononitrate 100 mg Oral TID sodium chloride flush 3 mL Intravenous Q8H sodium chloride flush 3 mL Intravenous Q8H sodium chloride flush 10 mL Intravenous 2 times per day Continuous Infusions: PRN Meds:sodium chloride flush, promethazine OR ondansetron, polyethylene glycol, acetaminophenOR acetaminophen Vitals: BP 125/71 Pulse 83 Temp 97.8 F (36.6 C) (Temporal) Resp 16 Ht 5' 4 (1.626 m) Wt 128 lb (58.1 kg) SpO2 97% BMI 21.97 kg/m BLOOD PRESSURE RANGE: Systolic (24hrs), Av , Min:101 , Max:128 ; Diastolic (24hrs), Av, Min:60, Max:71 24HR INTAKE/OUTPUT: Intake/Output Summary (Last 24 hours) at 12/26/2020 1328 Last data filed at 12/26/2020 0636 Gross per 24 hour Intake 1000 ml Output Net 1000 ml Physical exam: GENERAL well developed , no distress ENMT lips pink oral mucosa moist EYES sclerae white PERRL LUNGS clear to auscultation no wheezing no crackles respirations are even and unlaboured CARDIAC RRR S1 S2 no rubs, murmurs or gallops ABDOMEN soft nontender BS present in all four quadrants EXTREMITIES no edema no clubbing no skin discoloration no deformities NEURO alert awake Data: Labs: No results for input(s): WBC, HGB, HCT, MCV, PLT in the last 72 hours. Recent Labs 12/24/20 1644 12/25/20 0015 NA 135 137 K 4.1 4.1 CL 104 104 CO2 22 25 GLUCOSE 126* 92 BUN 10 8 CREATININE 0.50* 0.49* Ionized Calcium: No results found for: IONCA Magnesium: Lab Results Component Value Date MG 1.9 12/16/2020 Phosphorus: Lab Results Component Value Date PHOS 1.6 11/08/2020 U/A: Lab Results Component Value Date COLORU Yellow 12/12/2020 WBCUA 0-2 12/12/2020 RBCUA 0-2 12/12/2020 BACTERIA Negative 12/12/2020 LEUKOCYTESUR Negative 12/12/2020 UROBILINOGEN 2 12/12/2020 BILIRUBINUR Negative 12/12/2020 GLUCOSEU Normal 12/12/2020 Urine Culture: No components found for: CURINE Blood Culture: No components found for: CBLOOD, CFUNGUSBL Blood Culture from Central Line: No components found for: CBLOODLN Urinalysis: Reviewed if applicable Imaging:reviewed if applicable Assessment / Plan: Patient Active Problem List Diagnosis Combined forms of age-related cataract of right eye Intracranial bleed (HCC) Intraparenchymal hemorrhage of brain (HCC) Contusion and laceration of right cerebral hemisphere with loss of consciousness (HCC) Multiple closed facial bone fractures (HCC) Contusion of face Acute alcoholic intoxication without complication (HCC) Closed head injury Recurrent major depressive disorder, in partial remission (HCC) Primary insomnia Vitamin B12 deficiency Vitamin D deficiency SDH (subdural hematoma) (HCC) Traumatic subdural hematoma, initial encounter (HCC) Subdural hematoma, acute (HCC) Altered mental status Acute traumatic pain COVID-19 virus detected Palliative care encounter Goals of care, counseling/discussion Alcohol withdrawal syndrome, with delirium (HCC) Other secondary hypertension Sinus bradycardia Encephalopathy Cognitive deficits Declining functional status Brain mass Contusion of foot Self neglect Alcohol abuse At risk for delirium Elevated TSH Hypomagnesemia Hypokalemia Hyponatremia hyponatremia likely SIADH Continue NaCl tabs and fluid restriction SNa 137 better yesterday check bmp in am no labs today Can decrease or stop later on NaCl tabs with increasing in protein intake or use of urea. Rah Mann M.D 12/26/2020 1:28 PM * Leland Deng MD - 12/25/2020 11:32 AM EDT Images from the original note were not included. Hospitalist Progress Note 12/25/2020 11:32 AM [phone]: Please page me for patient care issues. [phone]: Please page [facility] night Hospitalist for any issues. Subjective: Admit Date: 12/12/2020 PCP: FRANK PALACIOS MD Room#: [id number] Interval History: Feels ok wants to go home refusing snf at this time Wants to go inpatient detox DIET GENERAL; No data found. Medications: DULoxetine 60 mg Oral Daily QUEtiapine 50 mg Oral Nightly vitamin B-12 500 mcg Oral Daily docusate sodium 100 mg Oral BID folic acid 1 mg Oral Daily acidophilus probiotic 1 capsule Oral Daily levothyroxine 50 mcg Oral Daily melatonin 3 mg Oral Nightly therapeutic multivitamin-minerals 1 tablet Oral Daily vitamin D 50,000 Units Oral Weekly pantoprazole 40 mg Oral QAM AC thiamine mononitrate 100 mg Oral TID sodium chloride flush 3 mL Intravenous Q8H sodium chloride flush 3 mL Intravenous Q8H sodium chloride flush 10 mL Intravenous 2 times per day LABS: CBC: No results for input(s): WBC, RBC, HGB, HCT, MCV, RDW, PLT in the last 72 hours. BMP: Recent Labs 12/24/20 1644 12/25/20 0015 NA 135 137 K 4.1 4.1 CL 104 104 CO2 22 25 BUN 10 8 CREATININE 0.50* 0.49* GLUCOSE 126* 92 CALCIUM 9.4 9.4 ANIONGAP 10 9 LIVER PROFILE: No results for input(s): AST, ALT, BILITOT, ALKPHOS, LABALBU, PROT in the last 72 hours. PT/INR: No results for input(s): PROTIME, INR in the last 72 hours. CARDIAC ENZYMES: No results for input(s): TROPONINI in the last 72 hours. Procalcitonin: Lab Results Component Value Date PROCAL <0.10 11/14/2020 Objective: Vitals: BP 98/61 Pulse 95 Temp 97.8 F (36.6 C) (Temporal) Resp 16 Ht 5' 4 (1.626 m) Wt 128 lb (58.1 kg) SpO2 96% BMI 21.97 kg/m Pulse Ox: SpO2 Av.8 % Min: 95 % Max: 97 % Supplemental O2: General appearance: No apparent distress, HEENT: Eyes: No scleral icterus Oral: Tongue is semi-moist Cardiovascular: S1S2 heard, RRR Respiratory: Decrease breath sound both bases Abdomen: Soft, non-tender, non-distended with normal bowel sounds. Extremity- no peripheral edema both lower extremities Assessment Acute encephalopathy multifactorial secondary to alcohol abuse/withdrawal, hyponatremia, subdural hematoma Chronic subdural hematoma Alcohol abuse/withdrawal Debility Hyponatremia, improving Impaired gait/mobility Hypokalemia, replaced Hypomagnesemia , replaced Macrocytosis secondary to ethanol abuse-B12, folate normal Abnormal LFT secondary to ethanol abuse- hepatitis B, C panel negative Hypothyroidism Hyperlipidemia Anxiety/depression History of opiate addiction in past Vitamin D deficiency Status post covid pneumonia treated in November 2020 Medical noncompliance Plan Neurosurgical team recommendation noted Continue current treatment Thiamine, folic acid, p.r.n. IV Ativan Nephrology team following for hyponatremia, on fluid restriction 1500 mL per day plus started on sodium chloride tablet 3 times a day Monitor sodium Psychiatric team recommendation noted- Would allow consent to low risk-high yield care. Would not permit refusal of needed care. Would not permit AMA discharge. Would cooperative with family for medical decisions at this time. PT recommended prison facility SCDs for deep vein thrombosis prophylaxis Protonix for gastrointestinal prophylaxis Patient was informed about all work up and treatment plan Patient's sister Peg [phone] - was informed about all workup and treatment plan Advance Directive: Full Code Discharge planning: DC to prison facility when approved Awaiting acceptance--if still refusing will need to complete court/ guardianship process ([place] hearing 01/03) Insurance denied SNF--appeal P Also trying for inpatient ETOH facility She still has little insight into current situation. Focused on going home to pay rent, however [employer] has a eviction hearing this week--so rent payments would not change outcome Check BMP tomm--noted Needs to be out of hospital kiesha Leland Deng MD Division of Hospitalist Medicine Inpatient Medical Services * Emeterio Beebe MD - 12/25/2020 10:55 AM EDT [facility] [address] [place] [address] Progress Note Subjective: Patient seen and examined today. We are following this patient for hyponatremia, less confused, no sitter today Scheduled Meds: DULoxetine 60 mg Oral Daily QUEtiapine 50 mg Oral Nightly vitamin B-12 500 mcg Oral Daily docusate sodium 100 mg Oral BID folic acid 1 mg Oral Daily acidophilus probiotic 1 capsule Oral Daily levothyroxine 50 mcg Oral Daily melatonin 3 mg Oral Nightly therapeutic multivitamin-minerals 1 tablet Oral Daily vitamin D 50,000 Units Oral Weekly pantoprazole 40 mg Oral QAM AC thiamine mononitrate 100 mg Oral TID sodium chloride flush 3 mL Intravenous Q8H sodium chloride flush 3 mL Intravenous Q8H sodium chloride flush 10 mL Intravenous 2 times per day Continuous Infusions: PRN Meds:sodium chloride flush, promethazine OR ondansetron, polyethylene glycol, acetaminophenOR acetaminophen Vitals: BP 98/61 Pulse 95 Temp 97.8 F (36.6 C) (Temporal) Resp 16 Ht 5' 4 (1.626 m) Wt 128 lb (58.1 kg) SpO2 96% BMI 21.97 kg/m BLOOD PRESSURE RANGE: Systolic (24hrs), Av , Min:98 , Max:136 ; Diastolic (24hrs), Av, Min:52, Max:82 24HR INTAKE/OUTPUT: Intake/Output Summary (Last 24 hours) at 12/25/2020 1056 Last data filed at 12/25/2020 0955 Gross per 24 hour Intake 890 ml Output Net 890 ml Physical exam: Alert oriented x 3 NAD CV RRR Lungs Clear Data: Labs: No results for input(s): WBC, HGB, HCT, MCV, PLT in the last 72 hours. Recent Labs 12/24/20 1644 12/25/20 0015 NA 135 137 K 4.1 4.1 CL 104 104 CO2 22 25 GLUCOSE 126* 92 BUN 10 8 CREATININE 0.50* 0.49* Ionized Calcium: No results found for: IONCA Magnesium: Lab Results Component Value Date MG 1.9 12/16/2020 Phosphorus: Lab Results Component Value Date PHOS 1.6 11/08/2020 U/A: Lab Results Component Value Date COLORU Yellow 12/12/2020 WBCUA 0-2 12/12/2020 RBCUA 0-2 12/12/2020 BACTERIA Negative 12/12/2020 LEUKOCYTESUR Negative 12/12/2020 UROBILINOGEN 2 12/12/2020 BILIRUBINUR Negative 12/12/2020 GLUCOSEU Normal 12/12/2020 Urine Culture: No components found for: CURINE Blood Culture: No components found for: CBLOOD, CFUNGUSBL Blood Culture from Central Line: No components found for: CBLOODLN Urinalysis: Reviewed if applicable Imaging:reviewed if applicable Assessment / Plan: Patient Active Problem List Diagnosis Combined forms of age-related cataract of right eye Intracranial bleed (HCC) Intraparenchymal hemorrhage of brain (HCC) Contusion and laceration of right cerebral hemisphere with loss of consciousness (HCC) Multiple closed facial bone fractures (HCC) Contusion of face Acute alcoholic intoxication without complication (HCC) Closed head injury Recurrent major depressive disorder, in partial remission (HCC) Primary insomnia Vitamin B12 deficiency Vitamin D deficiency SDH (subdural hematoma) (HCC) Traumatic subdural hematoma, initial encounter (HCC) Subdural hematoma, acute (HCC) Altered mental status Acute traumatic pain COVID-19 virus detected Palliative care encounter Goals of care, counseling/discussion Alcohol withdrawal syndrome, with delirium (HCC) Other secondary hypertension Sinus bradycardia Encephalopathy Cognitive deficits Declining functional status Brain mass Contusion of foot Self neglect Alcohol abuse At risk for delirium Elevated TSH Hypomagnesemia Hypokalemia Hyponatremia 70 y.o. female with PMH of alcohol abuse, anxiety/depression who was admitted to hospital due to AMS. Nephrology consulted for hyponatremia 1. hyponatremia likely SIADH Continue NaCl tabs and fluid restriction SNa 129 to 137 which is better When takes more solute in form of protein and solid food, can d/c salt tablets but she will need ongoing fluid restriction Need RFP 2. Bilateral resolving SDH Emeterio Beebe MD 12/25/2020 10:56 AM * Carolynn Hill DTR - 12/25/2020 8:45 AM EDT Nutrition update completed. Chart reviewed. Patient to be monitored and followed by the diet substation maintenance technician. * Goldie Livingston RN - 12/24/2020 6:07 PM EST Reported repeat labs to Dr Beebe, orders received * Leland Deng MD - 12/24/2020 1:16 PM EST Images from the original note were not included. Hospitalist Progress Note 12/24/2020 1:16 PM [phone]: Please page me for patient care issues. [phone]: Please page [facility] night Hospitalist for any issues. Subjective: Admit Date: 12/12/2020 PCP: FRANK PALACIOS MD Room#: [id number] Interval History: Feels ok wants to go home refusing snf at this time Clams she got landlord to agree to stop eviction hearing--her family did not want to help with this, they want her closer to home DIET GENERAL; Daily Fluid Restriction: 1500 ml No data found. Medications: sodium chloride 1 g Oral TID WC QUEtiapine 50 mg Oral Nightly vitamin B-12 500 mcg Oral Daily docusate sodium 100 mg Oral BID folic acid 1 mg Oral Daily acidophilus probiotic 1 capsule Oral Daily levothyroxine 50 mcg Oral Daily melatonin 3 mg Oral Nightly therapeutic multivitamin-minerals 1 tablet Oral Daily vitamin D 50,000 Units Oral Weekly pantoprazole 40 mg Oral QAM AC thiamine mononitrate 100 mg Oral TID sodium chloride flush 3 mL Intravenous Q8H sodium chloride flush 3 mL Intravenous Q8H LORazepam 2 mg Intramuscular Once sodium chloride flush 10 mL Intravenous 2 times per day LABS: CBC: No results for input(s): WBC, RBC, HGB, HCT, MCV, RDW, PLT in the last 72 hours. BMP: No results for input(s): NA, K, CL, CO2, BUN, CREATININE, GLUCOSE, CALCIUM, ANIONGAP in the last 72hours. LIVER PROFILE: No results for input(s): AST, ALT, BILITOT, ALKPHOS, LABALBU, PROT in the last 72 hours. PT/INR: No results for input(s): PROTIME, INR in the last 72 hours. CARDIAC ENZYMES: No results for input(s): TROPONINI in the last 72 hours. Procalcitonin: Lab Results Component Value Date PROCAL <0.10 11/14/2020 Objective: Vitals: BP 101/70 Pulse 91 Temp 97.9 F (36.6 C) (Temporal) Resp 16 Ht 5' 4 (1.626 m) Wt 128 lb (58.1 kg) SpO2 96% BMI 21.97 kg/m Pulse Ox: SpO2 Av.6 % Min: 94 % Max: 98 % Supplemental O2: General appearance: No apparent distress, HEENT: Eyes: No scleral icterus Oral: Tongue is semi-moist Cardiovascular: S1S2 heard, RRR Respiratory: Decrease breath sound both bases Abdomen: Soft, non-tender, non-distended with normal bowel sounds. Extremity- no peripheral edema both lower extremities Assessment Acute encephalopathy multifactorial secondary to alcohol abuse/withdrawal, hyponatremia, subdural hematoma Chronic subdural hematoma Alcohol abuse/withdrawal Debility Hyponatremia, improving Impaired gait/mobility Hypokalemia, replaced Hypomagnesemia , replaced Macrocytosis secondary to ethanol abuse-B12, folate normal Abnormal LFT secondary to ethanol abuse- hepatitis B, C panel negative Hypothyroidism Hyperlipidemia Anxiety/depression History of opiate addiction in past Vitamin D deficiency Status post covid pneumonia treated in November 2020 Medical noncompliance Plan Neurosurgical team recommendation noted Continue current treatment Thiamine, folic acid, p.r.n. IV Ativan Nephrology team following for hyponatremia, on fluid restriction 1500 mL per day plus started on sodium chloride tablet 3 times a day Monitor sodium Psychiatric team recommendation noted- Would allow consent to low risk-high yield care. Would not permit refusal of needed care. Would not permit AMA discharge. Would cooperative with family for medical decisions at this time. PT recommended prison facility SCDs for deep vein thrombosis prophylaxis Protonix for gastrointestinal prophylaxis Patient was informed about all work up and treatment plan Patient's sister Peg [phone] - was informed about all workup and treatment plan Advance Directive: Full Code Discharge planning: DC to prison facility when approved Awaiting acceptance--if still refusing will need to complete court/ guardianship process ([place] hearing 01/03) Insurance denied SNF--appeal P Also trying for inpatient ETOH facility She still has little insight into current situation. Focused on going home to pay rent, however [employer] has a eviction hearing this week--so rent payments would not change outcome Check BMP tiffanie Deng MD Division of Hospitalist Medicine Inpatient Medical Services * Emeterio Beebe MD - 12/24/2020 11:39 AM EST [facility] [address] [place], [place] [id number] Progress Note Subjective: Patient seen and examined today. We are following this patient for hyponatremia, less confused, no sitter today Scheduled Meds: sodium chloride 1 g Oral TID WC QUEtiapine 50 mg Oral Nightly vitamin B-12 500 mcg Oral Daily docusate sodium 100 mg Oral BID folic acid 1 mg Oral Daily acidophilus probiotic 1 capsule Oral Daily levothyroxine 50 mcg Oral Daily melatonin 3 mg Oral Nightly therapeutic multivitamin-minerals 1 tablet Oral Daily vitamin D 50,000 Units Oral Weekly pantoprazole 40 mg Oral QAM AC thiamine mononitrate 100 mg Oral TID sodium chloride flush 3 mL Intravenous Q8H sodium chloride flush 3 mL Intravenous Q8H LORazepam 2 mg Intramuscular Once sodium chloride flush 10 mL Intravenous 2 times per day Continuous Infusions: PRN Meds:sodium chloride flush, promethazine OR ondansetron, polyethylene glycol, acetaminophenOR acetaminophen, LORazepam OR LORazepam OR LORazepam OR LORazepam OR LORazepamOR LORazepam OR LORazepam OR LORazepam Vitals: BP 101/70 Pulse 91 Temp 97.9 F (36.6 C) (Temporal) Resp 16 Ht 5' 4 (1.626 m) Wt 128 lb (58.1 kg) SpO2 96% BMI 21.97 kg/m BLOOD PRESSURE RANGE: Systolic (24hrs), Av , Min:101 , Max:144 ; Diastolic (24hrs), Av, Min:63, Max:84 24HR INTAKE/OUTPUT: Intake/Output Summary (Last 24 hours) at 12/24/2020 1139 Last data filed at 12/24/2020 1004 Gross per 24 hour Intake 300 ml Output Net 300 ml Physical exam: Alert oriented x 3 NAD CV RRR Lungs Clear Data: Labs: No results for input(s): WBC, HGB, HCT, MCV, PLT in the last 72 hours. No results for input(s): NA, K, CL, CO2, GLUCOSE, PHOS, MG, BUN, CREATININE, LABGLOM, GFRAA in the last 72 hours. Invalid input(s): CA Ionized Calcium: No results found for: IONCA Magnesium: Lab Results Component Value Date MG 1.9 12/16/2020 Phosphorus: Lab Results Component Value Date PHOS 1.6 11/08/2020 U/A: Lab Results Component Value Date COLORU Yellow 12/12/2020 WBCUA 0-2 12/12/2020 RBCUA 0-2 12/12/2020 BACTERIA Negative 12/12/2020 LEUKOCYTESUR Negative 12/12/2020 UROBILINOGEN 2 12/12/2020 BILIRUBINUR Negative 12/12/2020 GLUCOSEU Normal 12/12/2020 Urine Culture: No components found for: CURINE Blood Culture: No components found for: CBLOOD, CFUNGUSBL Blood Culture from Central Line: No components found for: CBLOODLN Urinalysis: Reviewed if applicable Imaging:reviewed if applicable Assessment / Plan: Patient Active Problem List Diagnosis Combined forms of age-related cataract of right eye Intracranial bleed (HCC) Intraparenchymal hemorrhage of brain (HCC) Contusion and laceration of right cerebral hemisphere with loss of consciousness (HCC) Multiple closed facial bone fractures (HCC) Contusion of face Acute alcoholic intoxication without complication (HCC) Closed head injury Recurrent major depressive disorder, in partial remission (HCC) Primary insomnia Vitamin B12 deficiency Vitamin D deficiency SDH (subdural hematoma) (HCC) Traumatic subdural hematoma, initial encounter (HCC) Subdural hematoma, acute (HCC) Altered mental status Acute traumatic pain COVID-19 virus detected Palliative care encounter Goals of care, counseling/discussion Alcohol withdrawal syndrome, with delirium (HCC) Other secondary hypertension Sinus bradycardia Encephalopathy Cognitive deficits Declining functional status Brain mass Contusion of foot Self neglect Alcohol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 DAWIT Guillory CNP Or LORazepam (ATIVAN) injection 1 mg 1 mg Intravenous Q1H PRN DAWIT Guillory CNP Or LORazepam (ATIVAN) tablet 2 mg 2 mg Oral Q1H PRN DAWIT Guillory CNP Or LORazepam (ATIVAN) injection 2 mg 2 mg Intravenous Q1H PRN DAWIT Guillory CNP Or LORazepam (ATIVAN) tablet 3 mg 3 mg Oral Q1H PRN DAWIT Guillory CNP Or LORazepam (ATIVAN) injection 3 mg 3 mg Intravenous Q1H PRN DAWIT Guillory CNP Or LORazepam (ATIVAN) tablet 4 mg 4 mg Oral Q1H PRN DAWIT Guillory CNP Or LORazepam (ATIVAN) injection 4 mg 4 mg Intravenous Q1H PRN DAWIT Guillory CNP melatonin tablet 3 mg 3 mg Oral Nightly PRN Elena Maurice MD 3 mg at 12/12/20 2100 No Known Allergies Vitals: 12/18/20 1434 12/18/20 1949 12/19/20 0754 12/19/20 0754 BP: 136/75 120/72 131/80 Pulse: 94 99 101 90 Resp: 16 12 16 Temp: 98.1 F (36.7 C) 98.2 F (36.8 C) 98.2 F (36.8 C) TempSrc: Temporal Temporal Temporal Temporal SpO2: 96% 97% 96% 96% Weight: Height: MSE as above, no SI or HI noted, poor insight regarding poor recall, impaired self care. Judgement impaired Recent Results (from the past 48 hour(s)) Basic Metabolic Panel Collection Time: 12/18/20 3:30 AM Result Value Ref Range Sodium 129 (L) 135 - 145 mmol/L Potassium 3.8 3.5 - 5.1 mmol/L Chloride 98 98 - 107 mmol/L CO2 25 22 - 30 mmol/L Anion Gap 6 3 - 13 mmol/L Glucose 95 70 - 100 mg/dL BUN 14 7 - 20 mg/dL CREATININE 0.42 (L) 0.52 - 1.25 mg/dL eGFR >90.0 >60 mL/min EGFR IF NonAfrican Eritrean >90.0 >60 mL/min Calcium 8.9 8.4 - 10.4 mg/dL Sodium Collection Time: 12/19/20 3:04 AM Result Value Ref Range Sodium 131 (L) 135 - 145 mmol/L Assessment SIADH bilateral resolving SDH Plan Will wean duloxetine. Consider trial of mirtazapine in several weeks if hyponatremia improves sufficiently and mood symptoms return. To [facility] soon. * Stella Rosenberg - 12/19/2020 8:59 AM EST .Nutrition update completed. Chart reviewed. Patient to be monitored and followed by the diet substation maintenance technician..MIRIAM Jack * Tiffani Mir - 12/19/2020 8:21 AM EST Physical Therapy Attempt at PT treatment this am. Pt refused stating, well, when I go home I will walk then. I don't need to now. Will attempt PT treatment at a later time/date as able. Tiffani Mir, SPT * Rah Mann MD - 12/18/2020 12:10 PM EST [facility] [address] [place], [place] [id number] Progress Note Subjective: Patient seen and examined today. We are following this patient for hna Confused has sitter at bedside denies sob/cp just occasional very mild mendoza Scheduled Meds: sodium chloride 1 g Oral TID WC QUEtiapine 50 mg Oral Nightly vitamin B-12 500 mcg Oral Daily docusate sodium 100 mg Oral BID DULoxetine 60 mg Oral Daily folic acid 1 mg Oral Daily acidophilus probiotic 1 capsule Oral Daily levothyroxine 50 mcg Oral Daily melatonin 3 mg Oral Nightly therapeutic multivitamin-minerals 1 tablet Oral Daily vitamin D 50,000 Units Oral Weekly pantoprazole 40 mg Oral QAM AC thiamine mononitrate 100 mg Oral TID sodium chloride flush 3 mL Intravenous Q8H sodium chloride flush 3 mL Intravenous Q8H haloperidol lactate 5 mg Intramuscular Once LORazepam 2 mg Intramuscular Once sodium chloride flush 10 mL Intravenous 2 times per day Continuous Infusions: PRN Meds:sodium chloride flush, promethazine OR ondansetron, polyethylene glycol, acetaminophenOR acetaminophen, LORazepam OR LORazepam OR LORazepam OR LORazepam OR LORazepamOR LORazepam OR LORazepam OR LORazepam, melatonin Vitals: BP 122/75 Pulse 95 Temp 98.4 F (36.9 C) (Temporal) Resp 16 Ht 5' 4 (1.626 m) Wt 128 lb (58.1 kg) SpO2 96% BMI 21.97 kg/m BLOOD PRESSURE RANGE: Systolic (24hrs), Av , Min:93 , Max:131 ; Diastolic (24hrs), Av, Min:59, Max:79 24HR INTAKE/OUTPUT: Intake/Output Summary (Last 24 hours) at 12/18/2020 1210 Last data filed at 12/18/2020 1208 Gross per 24 hour Intake 630 ml Output Net 630 ml Physical exam: GENERAL well developed , no distress ENMT lips pink oral mucosa moist EYES sclerae white PERRL LUNGS clear to auscultation no wheezing no crackles respirations are even and unlaboured CARDIAC RRR S1 S2 no rubs, murmurs or gallops ABDOMEN soft nontender BS present in all four quadrants EXTREMITIES no edema no clubbing no skin discoloration no deformities NEURO alert awake Data: Labs: No results for input(s): WBC, HGB, HCT, MCV, PLT in the last 72 hours. Recent Labs 12/16/20 0012 12/17/20 0141 12/18/20 0330 NA 125* 127* 129* K 3.7 3.7 3.8 CL 95* 96* 98 CO2 24 25 25 GLUCOSE 90 93 95 MG 1.9 -- -- BUN 9 11 14 CREATININE 0.51* 0.42* 0.42* Ionized Calcium: No results found for: IONCA Magnesium: Lab Results Component Value Date MG 1.9 12/16/2020 Phosphorus: Lab Results Component Value Date PHOS 1.6 11/08/2020 U/A: Lab Results Component Value Date COLORU Yellow 12/12/2020 WBCUA 0-2 12/12/2020 RBCUA 0-2 12/12/2020 BACTERIA Negative 12/12/2020 LEUKOCYTESUR Negative 12/12/2020 UROBILINOGEN 2 12/12/2020 BILIRUBINUR Negative 12/12/2020 GLUCOSEU Normal 12/12/2020 Urine Culture: No components found for: CURINE Blood Culture: No components found for: CBLOOD, CFUNGUSBL Blood Culture from Central Line: No components found for: CBLOODLN Urinalysis: Reviewed if applicable Imaging:reviewed if applicable Assessment / Plan: Patient Active Problem List Diagnosis Combined forms of age-related cataract of right eye Intracranial bleed (HCC) Intraparenchymal hemorrhage of brain (HCC) Contusion and laceration of right cerebral hemisphere with loss of consciousness (HCC) Multiple closed facial bone fractures (HCC) Contusion of face Acute alcoholic intoxication without complication (HCC) Closed head injury Recurrent major depressive disorder, in partial remission (HCC) Primary insomnia Vitamin B12 deficiency Vitamin D deficiency SDH (subdural hematoma) (HCC) Traumatic subdural hematoma, initial encounter (HCC) Subdural hematoma (HCC) Altered mental status Acute traumatic pain COVID-19 virus detected Palliative care encounter Goals of care, counseling/discussion Alcohol withdrawal syndrome, with delirium (HCC) Other secondary hypertension Sinus bradycardia Encephalopathy Cognitive deficits Declining functional status Brain mass Contusion of foot Self neglect Alcohol abuse At risk for delirium Elevated TSH Hypomagnesemia Hypokalemia Hyponatremia hyponatremia likely SIADH Continue NaCl tabs and fluid restriction SNa 129 better Rah Mann M.D 12/18/2020 12:10 PM * nEdy Mauricio MD - 12/18/2020 10:06 AM EST Images from the original note were not included. Hospitalist Progress Note 12/18/2020 10:06 AM [phone]: Please page me for patient care issues. [phone]: Please page [facility] night Hospitalist for any issues. Subjective: Admit Date: 12/12/2020 PCP: FRANK PALACIOS MD Room#: [id number] Interval History: Patient seen and examined No new event overnight Denies any chest pain , sob , cough , sputum No abdominal pain, nausea, vomiting, fever spike noted Sodium today 129, potassium 3.8 Creatinine 0.42 Seen by nephrology team, started on sodium chloride 1 g tablet 3 times a day yesterday DIET GENERAL; Daily Fluid Restriction: 1500 ml No data found. Medications: sodium chloride 1 g Oral TID QUEtiapine 50 mg Oral Nightly vitamin B-12 500 mcg Oral Daily docusate sodium 100 mg Oral BID DULoxetine 60 mg Oral Daily folic acid 1 mg Oral Daily acidophilus probiotic 1 capsule Oral Daily levothyroxine 50 mcg Oral Daily melatonin 3 mg Oral Nightly therapeutic multivitamin-minerals 1 tablet Oral Daily vitamin D 50,000 Units Oral Weekly pantoprazole 40 mg Oral QAM AC thiamine mononitrate 100 mg Oral TID sodium chloride flush 3 mL Intravenous Q8H sodium chloride flush 3 mL Intravenous Q8H haloperidol lactate 5 mg Intramuscular Once LORazepam 2 mg Intramuscular Once sodium chloride flush 10 mL Intravenous 2 times per day LABS: CBC: No results for input(s): WBC, RBC, HGB, HCT, MCV, RDW, PLT in the last 72 hours. BMP: Recent Labs 12/16/20 0012 12/17/20 0141 12/18/20 0330 NA 125* 127* 129* K 3.7 3.7 3.8 CL 95* 96* 98 CO2 24 25 25 BUN 9 11 14 CREATININE 0.51* 0.42* 0.42* GLUCOSE 90 93 95 CALCIUM 8.4 8.9 8.9 ANIONGAP 6 7 6 LIVER PROFILE: No results for input(s): AST, ALT, BILITOT, ALKPHOS, LABALBU, PROT in the last 72 hours. PT/INR: No results for input(s): PROTIME, INR in the last 72 hours. CARDIAC ENZYMES: No results for input(s): TROPONINI in the last 72 hours. Procalcitonin: Lab Results Component Value Date PROCAL <0.10 11/14/2020 Objective: Vitals: BP 124/79 Pulse 96 Temp 97.5 F (36.4 C) (Temporal) Resp 16 Ht 5' 4 (1.626 m) Wt 128 lb (58.1 kg) SpO2 96% BMI 21.97 kg/m Pulse Ox: SpO2 Av.9 % Min: 95 % Max: 97 % Supplemental O2: General appearance: No apparent distress, HEENT: Eyes: No scleral icterus Oral: Tongue is semi-moist Cardiovascular: S1S2 heard, RRR Respiratory: Decrease breath sound both bases Abdomen: Soft, non-tender, non-distended with normal bowel sounds. Extremity- no peripheral edema both lower extremities Assessment Acute encephalopathy multifactorial secondary to alcohol abuse/withdrawal, hyponatremia, subdural hematoma Chronic subdural hematoma Alcohol abuse/withdrawal Debility Hyponatremia, improving Impaired gait/mobility Hypokalemia, replaced Hypomagnesemia , replaced Macrocytosis secondary to ethanol abuse-B12, folate normal Abnormal LFT secondary to ethanol abuse- hepatitis B, C panel negative Hypothyroidism Hyperlipidemia Anxiety/depression History of opiate addiction in past Vitamin D deficiency Status post covid pneumonia treated in November 2020 Medical noncompliance Plan Neurosurgical team recommendation noted Continue current treatment Thiamine, folic acid, p.r.n. IV Ativan Nephrology team following for hyponatremia, on fluid restriction 1500 mL per day plus started on sodium chloride tablet 3 times a day Monitor sodium Psychiatric team recommendation noted- Would allow consent to low risk-high yield care. Would not permit refusal of needed care. Would not permit AMA discharge. Would cooperative with family for medical decisions at this time. PT recommended [facility] SCDs for deep vein thrombosis prophylaxis Protonix for gastrointestinal prophylaxis Patient was informed about all work up and treatment plan Patient's sister Peg [phone] - was informed about all workup and treatment plan Advance Directive: Full Code Discharge planning: DC to prison facility when approved Endy Mauricio MD Division of Hospitalist Medicine Inpatient Medical Services PAGER: [phone] * Endy Mauricio MD - 12/17/2020 11:54 AM EST Images from the original note were not included. Hospitalist Progress Note 12/17/2020 11:54 AM [phone]: Please page me for patient care issues. [phone]: Please page [facility] night Hospitalist for any issues. Subjective: Admit Date: 12/12/2020 PCP: FRANK PALACIOS MD Room#: [id number] Interval History: Patient seen and examined No new event overnight Denies any chest pain , sob , cough , sputum No abdominal pain, nausea, vomiting, fever spike noted Having bowel movement Sodium 127, potassium 3.7, creatinine 0.42 DIET GENERAL; Daily Fluid Restriction: 1500 ml No data found. Medications: sodium chloride 1 g Oral TID QUEtiapine 50 mg Oral Nightly vitamin B-12 500 mcg Oral Daily docusate sodium 100 mg Oral BID DULoxetine 60 mg Oral Daily folic acid 1 mg Oral Daily acidophilus probiotic 1 capsule Oral Daily levothyroxine 50 mcg Oral Daily melatonin 3 mg Oral Nightly therapeutic multivitamin-minerals 1 tablet Oral Daily vitamin D 50,000 Units Oral Weekly pantoprazole 40 mg Oral QAM AC thiamine mononitrate 100 mg Oral TID sodium chloride flush 3 mL Intravenous Q8H sodium chloride flush 3 mL Intravenous Q8H haloperidol lactate 5 mg Intramuscular Once LORazepam 2 mg Intramuscular Once sodium chloride flush 10 mL Intravenous 2 times per day LABS: CBC: No results for input(s): WBC, RBC, HGB, HCT, MCV, RDW, PLT in the last 72 hours. BMP: Recent Labs 12/15/20 1733 12/16/20 0012 12/17/20 0141 NA 126* 125* 127* K 4.1 3.7 3.7 CL 96* 95* 96* CO2 21* 24 25 BUN 7 9 11 CREATININE 0.46* 0.51* 0.42* GLUCOSE 113* 90 93 CALCIUM 8.9 8.4 8.9 ANIONGAP 9 6 7 LIVER PROFILE: No results for input(s): AST, ALT, BILITOT, ALKPHOS, LABALBU, PROT in the last 72 hours. PT/INR: No results for input(s): PROTIME, INR in the last 72 hours. CARDIAC ENZYMES: No results for input(s): TROPONINI in the last 72 hours. Procalcitonin: Lab Results Component Value Date PROCAL <0.10 11/14/2020 Objective: Vitals: BP 123/80 Pulse 92 Temp 98.1 F (36.7 C) (Temporal) Resp 15 Ht 5' 4 (1.626 m) Wt 128 lb (58.1 kg) SpO2 96% BMI 21.97 kg/m Pulse Ox: SpO2 Av.7 % Min: 96 % Max: 98 % Supplemental O2: General appearance: No apparent distress, HEENT: Eyes: No scleral icterus Oral: Tongue is semi-moist Cardiovascular: S1S2 heard, RRR Respiratory: Decrease breath sound both bases Abdomen: Soft, non-tender, non-distended with normal bowel sounds. Extremity- no peripheral edema both lower extremities Assessment Acute encephalopathy multifactorial secondary to alcohol abuse/withdrawal, hyponatremia, subdural hematoma Chronic subdural hematoma Alcohol abuse/withdrawal Debility Hyponatremia Impaired gait/mobility Hypokalemia, replaced Hypomagnesemia , replaced Macrocytosis secondary to ethanol abuse-B12, folate normal Abnormal LFT secondary to ethanol abuse- hepatitis B, C panel negative Hypothyroidism Hyperlipidemia Anxiety/depression History of opiate addiction in past Vitamin D deficiency Status post covid pneumonia treated in November 2020 Medical noncompliance Plan Neurosurgical team recommendation noted Continue current treatment Thiamine, folic acid, p.r.n. IV Ativan Nephrology team following for hyponatremia, patient is on fluid restriction 1500 mL per day BMP panel in a.m. Psychiatric team recommendation noted- Would allow consent to low risk-high yield care. Would not permit refusal of needed care. Would not permit AMA discharge. Would cooperative with family for medical decisions at this time. PT recommended prison facility SCDs for deep vein thrombosis prophylaxis Protonix for gastrointestinal prophylaxis Patient was informed about all work up and treatment plan Advance Directive: Full Code Discharge planning: Endy Mauricio MD Division of Hospitalist Medicine Inpatient Medical Services PAGER: [phone] * Rah Mann MD - 12/17/2020 10:18 AM EST [facility] [address] [place], [place] [id number] Progress Note Subjective: Patient seen and examined today. We are following this patient for hna Confused has sitter at bedside denies sob/cp or any c/o Scheduled Meds: sodium chloride 1 g Oral BID WC QUEtiapine 50 mg Oral Nightly vitamin B-12 500 mcg Oral Daily docusate sodium 100 mg Oral BID DULoxetine 60 mg Oral Daily folic acid 1 mg Oral Daily acidophilus probiotic 1 capsule Oral Daily levothyroxine 50 mcg Oral Daily melatonin 3 mg Oral Nightly therapeutic multivitamin-minerals 1 tablet Oral Daily vitamin D 50,000 Units Oral Weekly pantoprazole 40 mg Oral QAM AC thiamine mononitrate 100 mg Oral TID sodium chloride flush 3 mL Intravenous Q8H sodium chloride flush 3 mL Intravenous Q8H haloperidol lactate 5 mg Intramuscular Once LORazepam 2 mg Intramuscular Once sodium chloride flush 10 mL Intravenous 2 times per day Continuous Infusions: PRN Meds:sodium chloride flush, promethazine OR ondansetron, polyethylene glycol, acetaminophenOR acetaminophen, LORazepam OR LORazepam OR LORazepam OR LORazepam OR LORazepamOR LORazepam OR LORazepam OR LORazepam, melatonin Vitals: BP 106/84 Pulse 103 Temp 97.7 F (36.5 C) (Temporal) Resp 16 Ht 5' 4 (1.626 m) Wt 128 lb (58.1 kg) SpO2 96% BMI 21.97 kg/m BLOOD PRESSURE RANGE: Systolic (24hrs), Av , Min:106 , Max:150 ; Diastolic (24hrs), Av, Min:73, Max:88 24HR INTAKE/OUTPUT: No intake or output data in the 24 hours ending 12/17/20 1018 Physical exam: GENERAL well developed , no distress ENMT lips pink oral mucosa moist EYES sclerae white PERRL LUNGS clear to auscultation no wheezing no crackles respirations are even and unlaboured CARDIAC RRR S1 S2 no rubs, murmurs or gallops ABDOMEN soft nontender BS present in all four quadrants EXTREMITIES no edema no clubbing no skin discoloration no deformities NEURO alert awake Data: Labs: No results for input(s): WBC, HGB, HCT, MCV, PLT in the last 72 hours. Recent Labs 12/15/20 0010 12/15/20 1733 12/16/20 0012 12/17/20 0141 NA 125* 126* 125* 127* K 3.6 4.1 3.7 3.7 CL 96* 96* 95* 96* CO2 22 21* 24 25 GLUCOSE 91 113* 90 93 MG 1.5* -- 1.9 -- BUN 7 7 9 11 CREATININE 0.42* 0.46* 0.51* 0.42* Ionized Calcium: No results found for: IONCA Magnesium: Lab Results Component Value Date MG 1.9 12/16/2020 Phosphorus: Lab Results Component Value Date PHOS 1.6 11/08/2020 U/A: Lab Results Component Value Date COLORU Yellow 12/12/2020 WBCUA 0-2 12/12/2020 RBCUA 0-2 12/12/2020 BACTERIA Negative 12/12/2020 LEUKOCYTESUR Negative 12/12/2020 UROBILINOGEN 2 12/12/2020 BILIRUBINUR Negative 12/12/2020 GLUCOSEU Normal 12/12/2020 Urine Culture: No components found for: CURINE Blood Culture: No components found for: CBLOOD, CFUNGUSBL Blood Culture from Central Line: No components found for: CBLOODLN Urinalysis: Reviewed if applicable Imaging:reviewed if applicable Assessment / Plan: Patient Active Problem List Diagnosis Combined forms of age-related cataract of right eye Intracranial bleed (HCC) Intraparenchymal hemorrhage of brain (HCC) Contusion and laceration of right cerebral hemisphere with loss of consciousness (HCC) Multiple closed facial bone fractures (HCC) Contusion of face Acute alcoholic intoxication without complication (HCC) Closed head injury Recurrent major depressive disorder, in partial remission (HCC) Primary insomnia Vitamin B12 deficiency Vitamin D deficiency SDH (subdural hematoma) (HCC) Traumatic subdural hematoma, initial encounter (HCC) Subdural hematoma (HCC) Altered mental status Acute traumatic pain COVID-19 virus detected Palliative care encounter Goals of care, counseling/discussion Alcohol withdrawal syndrome, with delirium (HCC) Other secondary hypertension Sinus bradycardia Encephalopathy Cognitive deficits Declining functional status Brain mass Contusion of foot Self neglect Alcohol abuse At risk for delirium Elevated TSH Hypomagnesemia Hypokalemia Hyponatremia hyponatremia likely SIADH Continue NaCl tabs and fluid restriction SNa 127 better Rah Mann M.D 12/17/2020 10:18 AM * Chirag Acosta MD - 12/16/2020 2:40 PM EST [facility] [address] [place] [address] Progress Note Subjective: Patient seen and examined today. We are following this patient for hyponatremia. - no acute events - tolerating po - wants more water Scheduled Meds: QUEtiapine 50 mg Oral Nightly vitamin B-12 500 mcg Oral Daily docusate sodium 100 mg Oral BID DULoxetine 60 mg Oral Daily folic acid 1 mg Oral Daily acidophilus probiotic 1 capsule Oral Daily levothyroxine 50 mcg Oral Daily melatonin 3 mg Oral Nightly therapeutic multivitamin-minerals 1 tablet Oral Daily vitamin D 50,000 Units Oral Weekly pantoprazole 40 mg Oral QAM AC thiamine mononitrate 100 mg Oral TID sodium chloride flush 3 mL Intravenous Q8H sodium chloride flush 3 mL Intravenous Q8H haloperidol lactate 5 mg Intramuscular Once LORazepam 2 mg Intramuscular Once sodium chloride flush 10 mL Intravenous 2 times per day Continuous Infusions: PRN Meds:sodium chloride flush, promethazine OR ondansetron, polyethylene glycol, acetaminophenOR acetaminophen, LORazepam OR LORazepam OR LORazepam OR LORazepam OR LORazepamOR LORazepam OR LORazepam OR LORazepam, melatonin Vitals: BP 129/79 Pulse 88 Temp 99.2 F (37.3 C) (Temporal) Resp 18 Ht 5' 4 (1.626 m) Wt 128 lb (58.1 kg) SpO2 95% BMI 21.97 kg/m BLOOD PRESSURE RANGE: Systolic (24hrs), Av , Min:112 , Max:139 ; Diastolic (24hrs), Av, Min:69, Max:87 24HR INTAKE/OUTPUT: No intake or output data in the 24 hours ending 12/16/20 1440 Physical exam: Awake, no acute distress Normal respiration Pulse regular No edema Data: Labs: Recent Labs 12/14/20 040 WBC 5.8 HGB 11.9 HCT 34.9* MCV 101.2* PLT 168 Recent Labs 12/14/20 0401 12/15/20 0010 12/15/20 1733 12/16/20 0012 NA 130* 125* 126* 125* K 3.3* 3.6 4.1 3.7 CL 102 96* 96* 95* CO2 24 22 21* 24 GLUCOSE 87 91 113* 90 MG 1.3* 1.5* -- 1.9 BUN 13 7 7 9 CREATININE 0.36* 0.42* 0.46* 0.51* Ionized Calcium: No results found for: IONCA Magnesium: Lab Results Component Value Date MG 1.9 12/16/2020 Phosphorus: Lab Results Component Value Date PHOS 1.6 11/08/2020 U/A: Lab Results Component Value Date COLORU Yellow 12/12/2020 WBCUA 0-2 12/12/2020 RBCUA 0-2 12/12/2020 BACTERIA Negative 12/12/2020 LEUKOCYTESUR Negative 12/12/2020 UROBILINOGEN 2 12/12/2020 BILIRUBINUR Negative 12/12/2020 GLUCOSEU Normal 12/12/2020 Urine Culture: No components found for: CURINE Blood Culture: No components found for: CBLOOD, CFUNGUSBL Blood Culture from Central Line: No components found for: CBLOODLN Imaging: none Assessment / Plan: 70 y.o. female with PMH of alcohol abuse, anxiety/depression who was admitted to hospital due to AMS. Nephrology consulted for hyponatremia 1. Hyponatremia - na 130-->125mmol/L - orthostatic negative, hence not cerebral salt wasting - serum osm 263, urine osm 244, urine Na 75 --> although ADH is present, no driving factor Plan - continue with free water restriction - add salt tablet 1g bid - continue to encourage increase solute intake Discussed with RN Thank you, please call [phone] with any concerns. Chirag Acosta M.D 12/16/2020 2:40 PM * Jessica Whalen - 12/16/2020 12:29 PM EST Physical Therapy Facility/Department: [facility] Daily Treatment Note NAME: Jazmin Johnson : 1950 Date of Service: 12/16/2020 Discharge Recommendations: (facility based therapy) PT Equipment Recommendations Equipment Needed: No Assessment Assessment: pt is not able to successfully avoid obstacles during ambualtion w/ Min A. pt displays heavy R deviated path and used rail on wall for most of the time during ambulation, but states I am fine. I am going home today. pt is high fall risk, and not safe go home alone. Recommened Facility based therapy. Prognosis: Fair Decision Making: Medium Complexity REQUIRES PT FOLLOW UP: Yes Activity Tolerance Activity Tolerance: Patient limited by fatigue;Patient limited by endurance;Patient limited by cognitive status Patient Diagnosis(es): The primary encounter diagnosis was Altered mental status, unspecified altered mental status type. Diagnoses of Brain mass and Hyponatremia were also pertinent to this visit. has a past medical history of Alcohol abuse, Anxiety and depression, Hyperlipidemia, Opiate addiction (HCC), and Thyroid disease. has a past surgical history that includes Colonoscopy and Endoscopy, colon, diagnostic. Restrictions Restrictions/Precautions Restrictions/Precautions: Fall Risk, Seizure, Up as Tolerated Required Braces or Orthoses?: No Lower Extremity Weight Bearing Restrictions Right Lower Extremity Weight Bearing: Weight Bearing As Tolerated Left Lower Extremity Weight Bearing: Weight Bearing As Tolerated Position Activity Restriction Other position/activity restrictions: Sitter Subjective General Chart Reviewed: Yes Family / Caregiver Present: No Referring Practitioner: SPTA wore N95 mask, gloves and goggle during PT Rx. pt wore mask in hallway. Subjective Subjective: Pt lying upright in bed. Pleasant and agreeable to therapy. nsg cleared pt for PT. pt reports she still has headache, but it is slightly better than yesterday. Orientation Orientation Overall Orientation Status: Within Functional Limits Cognition Cognition Overall Cognitive Status: Exceptions Objective Bed mobility Supine to Sit: Supervision Sit to Supine: Supervision Scooting: Supervision Transfers Sit to Stand: Contact guard assistance Stand to sit: Contact guard assistance Ambulation Ambulation?: Yes WB Status: WBAT More Ambulation?: Yes Ambulation 1 Surface: level tile Device: No Device Assistance: Minimal assistance Quality of Gait: Heavy lean to R. pt used rail on wall on R side during ambulation. Gait Deviations: Deviated path;Decreased step length;Decreased step height;Decreased arm swing Distance: 24ft x1, 76ft x1, 120ft x1 Comments: Displays heavy deviated path to R side for majority of times during ambulation. pt kept her R hand on rail of wall. Ambulation 2 Surface - 2: level tile Device 2: No device Assistance 2: Minimal assistance Quality of Gait 2: see above. Gait Deviations: Deviated path;Decreased step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 Multiplanar reformatted images are provided for review. Dose modulation, iterative reconstruction, and/or weight based adjustment of the mA/kV was utilized to reduce the radiation dose to as low as reasonably achievable. COMPARISON: None HISTORY: ORDERING SYSTEM PROVIDED HISTORY: TRAUMA TECHNOLOGIST PROVIDED HISTORY: trauma Reason for Exam: Trauma Acuity: Acute Type of Exam: Initial FINDINGS: BONES/ALIGNMENT: There is normal alignment of the spine. The vertebral body heights are maintained. No osseous destructive lesion is seen. DEGENERATIVE CHANGES: No significant degenerative changes of the lumbar spine. SOFT TISSUES/RETROPERITONEUM: No paraspinal mass is seen. CT Chest Abdomen Pelvis W Contrast: EXAMINATION: CT OF THE CHEST, ABDOMEN, AND PELVIS WITH CONTRAST 01/13/2021 6:17 pm TECHNIQUE: CT of the chest, abdomen and pelvis was performed with the administration of intravenous contrast. Multiplanar reformatted images are provided for review. Dose modulation, iterative reconstruction, and/or weight based adjustment of the mA/kV was utilized to reduce the radiation dose to as low as reasonably achievable. COMPARISON: None HISTORY: ORDERING SYSTEM PROVIDED HISTORY: Trauma TECHNOLOGIST PROVIDED HISTORY: Trauma Reason for Exam: Trauma Acuity: Acute Type of Exam: Initial FINDINGS: Chest: Mediastinum: Normal enhancement of the thoracic aorta and pulmonary arterial system is noted. No acute traumatic injury is present involving the thoracic aorta or heart. Coronary arterial calcifications are present. No evidence of mediastinal hemorrhage is present. No pericardial effusion is noted. Lungs/pleura: Dependent changes are present within the lung bases. No focal area of consolidation, pleural effusion or pneumothorax is present. Minimal fibrotic stranding is present within the right middle lobe. Soft Tissues/Bones: Old fracture deformity is present involving the lateral right 5th rib. Old fracture deformity is present involving the anterior right and left 5th and 6th ribs, with callus formation present. No evidence of an acute displaced rib fracture is present. Abdomen/Pelvis: Organs: Low-attenuation liver lesions are present, largest measuring 2.1 x 1.6 cm, within the posteromedial portion of the right lobe of the liver. Lesions are indeterminate. The spleen, gallbladder, pancreas, and kidneys appear normal, without acute traumatic injury. Nodular thickening of the left adrenal gland is present, consistent with adenomatous changes. Right adrenal gland is normal.. GI/Bowel: Small hiatal hernia is present. Small bowel appears normal. No inflammatory change or wall thickening is present involving the large bowel. The appendix is normal. Pelvis: Uterus is enlarged, multiple fibroids. A large right fundal fibroid measures 7.5 cm and is low in attenuation, suggesting necrosis. Urinary bladder appears normal. A pessary device is in place. Peritoneum/Retroperitoneum: No free fluid or free air is present within the abdomen or pelvis. No retroperitoneal hemorrhage is noted. No aneurysm formation, or traumatic injury is present involving the abdominal aorta. No mesenteric hematoma formation is present. Bones/Soft Tissues: No acute osseous injury is present within the abdomen or pelvis. Calcified injection granuloma is present within the left buttock region. Tarlov cyst formation is present within the left sacrum. CT Cervical Spine WO Contrast: EXAMINATION: CT OF THE CERVICAL SPINE WITHOUT CONTRAST 01/13/2021 10:04 pm TECHNIQUE: CT of the cervical spine was performed without the administration of intravenous contrast. Multiplanar reformatted images are provided for review. Dose modulation, iterative reconstruction, and/or weight based adjustment of the mA/kV was utilized to reduce the radiation dose to as low as reasonably achievable. COMPARISON: None. HISTORY: ORDERING SYSTEM PROVIDED HISTORY: Head injury TECHNOLOGIST PROVIDED HISTORY: Head injury Decision Support Exception->Emergency Medical Condition (MA) Reason for Exam: fall Acuity: Acute Type of Exam: Initial FINDINGS: BONES/ALIGNMENT: There is no acute fracture or traumatic malalignment. C2 on C3 and C3 on C4 anterolisthesis measuring 2-3 mm is present, likely degenerative in etiology. DEGENERATIVE CHANGES: Multifocal [id number] spondylosis is noted within the cervical spine without significant associated central canal stenosis/compromise identified. 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 SOFT TISSUES: There is no prevertebral soft tissue swelling. CT Head without Contrast 01/13/2021 9:12 PM COMPARISON: None. HISTORY: ORDERING SYSTEM PROVIDED HISTORY: Head injury TECHNOLOGIST PROVIDED HISTORY: Head injury Decision Support Exception->Emergency Medical Condition (MA) Reason for Exam: fall Acuity: Acute Type of Exam: Initial FINDINGS: There are bilateral frontoparietal acute subdural hematomas with greatest thickness measuring 6 mm in the left superior frontal region and 3 mm on the right superior frontal region.Bilateral subdural hygromas surrounding the cerebellar hemisphere, measuring 9 mm on the left side and 5 mm on the right side. There is no acute infarction, intraparenchymal hemorrhage or intracranial mass lesion. No midline shift is noted. There are mild nonspecific foci of periventricular and subcortical cerebral white matter hypodensity, most likely representing chronic microangiopathic disease in this age group. The brain parenchyma is otherwise normal. The cerebellar tonsils are in normal position. The ventricles, sulci, and cisterns are mildly prominent suggestive of mild generalized volume loss. The globes and orbits are within normal limits. The visualized extracranial structures including paranasal sinuses and mastoid air cells are unremarkable. There is a fracture involving the right parietal bone. Quinten Mauricio MD 01/14/21, 8:34 AM Associated attestation - Shandra Cole MD - 01/15/2021 10:55 AM EDT I personally evaluated the patient and directed the medical decision making with Resident/ESSIE afterthe physical/radiologic exam and laboratory values were reviewed and confirmed. Shandra Cole MD * Quinten Mauricio MD - 01/14/2021 7:51 AM EDT CTL Spine Evaluation for Spine Clearance: Pt is a 70 y.o. female who was admitted on 01/14/21 s/p fall. Pt w/ complaints of mechanical fall. C-Spine precautions of C-collar with spinal neutrality maintained since arrival with current exam directed at further evaluation of spine for clearance purposes. Pt chart and current images reviewed. CT C-Spine negative for acute fracture, subluxation, or traumatic injury. Patient does not have a distracting injury, is not acutely intoxicated and is alert, oriented and fully able to participate in exam. Pt denies c-spine pain while resting in c-collar. C-collar removed w/ c-spine neutrality maintained. Pt denies midline pain with palpation of spinous processes and axial loading. Pt demonstrated fullflexion, extension, and SB ROM without complaints of pain. TLS precautions of supine position maintained since arrival. Pt denies midline pain with palpation of spinous processes. CT dorsal lumbar negative for acute fracture, subluxation, or traumatic injury. C-spine is considered cleared w/out need for further imaging, evaluation, or continuation of c-collar. TLS considered clear w/out need for further imaging, evaluation, or continuation of supine bedrest precautions. * Kong Jones, PT - 01/14/2021 7:47 AM EDT Physical Therapy DATE: 01/14/2021 NAME: Jazmin Johnson : 1950 Patient not seen this date for Physical Therapy due to: Spinal Precautions: Still in CTLS precautions. * Tiffani Mendez RCP - 01/13/2021 11:54 PM EDT RAPID Covid 19 swab taken from right nare, labeled, placed in red dot bag, and [facility] outside of room for transport to laboratory per hospital policy and procedure. Patient tolerated procedure well. documented in this encounter Reason for Referral Status Reason Specialty Diagnoses / Procedures Referred By Contact Referred To Contact [facility] Required General Surgery: Trauma/ Critical Care / Trauma Surgery Diagnoses Closed head injury, initial encounter Germaine Woods APRN - DISTRIBUTION CLERK [address] [address] [facility] Trauma 55 [facility] Naun [address] [place] [id number] [facility] Trauma Surgery- Matt Charlton MD [address] [facility], [address] [place] [address] Status Reason Specialty Diagnoses / Procedures Referre d By Contact Referred To Contact [facility] Radiology Diagnoses Intracranial bleed (HCC) Procedures CT Head WO Contrast Germaine Woods APRN - DISTRIBUTION CLERK [address] [address] Status Reason Specialty Diagnoses / Procedures Referre d By Contact Referred To Contact [facility] Diagnoses Bilateral subdural hematomas (HCC) Procedures CT HEAD WO CONTRAST Trae Diaz DO [facility] [place] [address] Discharge Instructions * Discharge Instr - Activity* Michelle Rodriguez APRN - NP - 10/23/2020 10:39 AM EST No ibuprofen, aspirin, blood thinners, coumadin X 3 weeks and after cleared by neurosurgery You have been diagnosed with a concussion. Upon discharge you can expect post- concussion symptoms. These include but are not limited to: - Thinking/remembering - difficulty thinking clearly, remembering new info, and concentrating - Physical - headache, blurry vision, dizziness, sensitivity to light and noises, feeling tired, balance problems - Emotional, mood - irritability, sadness, emotional, nervous or anxiety - Sleep - sleeping more than usual, sleep less then usual, trouble falling asleep To feel better: - Get plenty of sleep at night, and take it easy during the day - Avoid physically demanding activities or those that require a lot of concentration - Do not drive, operate heavy equipment until cleared by your doctor - Do not drink alcohol * Discharge Instr - Diet* Germaine Woods APRN - CNP - 10/23/2020 10:59 AM EST Good nutrition is important when healing from an illness, injury, or surgery. Follow any nutrition recommendations given to you during your hospital stay. If you were given an oral nutrition supplement while in the hospital, continue to take this supplement at home. You can take it with meals, in-between meals, and/or before bedtime. These supplements can be purchased at most local grocery stores, pharmacies, and chain [employer]-stores. If you have any questions about your diet or nutrition, call the hospital and ask for the dietitian. General diet * Additional Instructions* Michelle Rodriguez APRN - NP - 10/20/2020 Ortho discharge instructions: -Nonweightbearing to left upper extremity. -Wear sling as needed for comfort to left arm -Encourage ROM of index finger, long finger, ring finger, little finger, thumb in splint/dressing with goal of touching finger tips to splint material/dressing in palm. -Ice to affected area. This will help with pain. -Elevate left upper extremity. This will help with swelling. -Take your medications as prescribed. -Follow-up outpatient with Dr. Lindsay in 1 week(s). Geriatrics Discharge Instructions Please follow-up with your alcoholics anonymous sponsor even if it's attending online meetings for support to keep you alcohol free! If you are drinking regularly, we do NOT advise you to quit cold turkey as this can lead to withdrawal and in the most severe circumstances can lead to your . Instead, we recommend gradually reducing your consumption of alcohol containing products over the next weeks of time until you have completely discontinued use of all alcohol. Please complete your power of real estate attorney paperwork and living will as these are important documents to have going forward for your [facility]. You have been diagnosed with a concussion. Upon discharge you can expect post- concussion symptoms. These include but are not limited to: - Thinking/remembering - difficulty thinking clearly, remembering new info, and concentrating - Physical - headache, blurry vision, dizziness, sensitivity to light and noises, feeling tired, balance problems - Emotional, mood - irritability, sadness, emotional, nervous or anxiety - Sleep - sleeping more than usual, sleep less then usual, trouble falling asleep To feel better: - Get plenty of sleep at night, and take it easy during the day - Avoid physically demanding activities or those that require a lot of concentration - Do not drive, operate heavy equipment until cleared by your doctor - Do not drink alcohol * Attachments The following attachments cannot be sent through Care Everywhere. * Facial Fracture (Bruneian) documented in this encounter* Discharge Instr - Activity* Endy Mauricio MD - 12/13/2020 11:04 AM EST Up with assistance * Discharge Instr - Diet* Endy Mauricio MD - 12/13/2020 11:04 AM EST Good nutrition is important when healing from an illness, injury, or surgery. Follow any nutrition recommendations given to you during your hospital stay. If you were given an oral nutrition supplement while in the hospital, continue to take this supplement at home. You can take it with meals, in-between meals, and/or before bedtime. These supplements can be purchased at most local grocery stores, pharmacies, and chain super-stores. If you have any questions about your diet or nutrition, call the hospital and ask for the dietitian. General diet * Discharge Instr - NOREEN* Glenis Saavedra RN - 12/13/2020 11:05 AM EST Continuity of Care Form Patient Name: Jazmin Johnson : 1950 Admit date: 12/12/2020 Discharge date: 12/29/20 Code Status Order: Full Code Advance Directives: Advance Care Flowsheet Documentation Date/Time Healthcare Directive Type of Healthcare Directive Copy in Chart Healthcare Agent Appointed Healthcare Agent's Name Healthcare Agent's Phone Number 12/12/20 1653 No, patient does not have an advance directive for healthcare treatment -- -- -- -- -- Admitting Physician: Frankie Hines MD PCP: FRANK PALACIOS MD Discharging Nurse: Glenis Saavedra RN Discharging Hospital Unit/Room#: 5782/[id number] Discharging Unit Emergency Contact: Extended Emergency Contact Information Primary Emergency Contact: suni olmedo [place] Relation: Other Past Surgical History: Past Surgical History: Procedure Laterality Date COLONOSCOPY ENDOSCOPY, COLON, DIAGNOSTIC Immunization History: There is no immunization history on file for this patient. 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.811 Intracranial bleed (HCC) I62.9 Intraparenchymal hemorrhage of brain (HCC) I61.9 Contusion and laceration of right cerebral hemisphere with loss of consciousness (HCC) S06.319A Multiple closed facial bone fractures (HCC) S02.92XA Contusion of face S00.83XA Acute alcoholic intoxication without complication (HCC) F10.920 Closed head injury S09.90XA Recurrent major depressive disorder, in partial remission ([facility]) F33.41 Primary insomnia F51.01 Vitamin B12 deficiency E53.8 Vitamin D deficiency E55.9 SDH (subdural hematoma) ([facility]) S06.5X9A Traumatic subdural hematoma, initial encounter ([facility]) S06.5X9A Subdural hematoma, acute ([facility]) S06.5X9A Altered mental status R41.82 Acute traumatic pain G89.11 COVID-19 virus detected U07.1 Palliative care encounter Z51.5 Goals of care, counseling/discussion Z71.89 Alcohol withdrawal syndrome, with delirium ([facility]) F10.231 Other secondary hypertension I15.8 Sinus bradycardia R00.1 Encephalopathy G93.40 Cognitive deficits R41.89 Declining functional status R53.81 Brain mass G93.89 Contusion of foot S90.30XA Isolation/Infection: Isolation No Isolation Patient Infection Status Infection Onset Added Last Indicated Last Indicated By Review Planned Expiration Resolved Resolved By None active Resolved COVID-19 12/12/20 12/12/20 12/12/20 COVID-19 12/13/20 Aury Salmon RN Previous positive 11/07/20 - Recovered patients can continue to have SARS-CoV-2 RNA detected in their upper respiratory specimens for up to 12 weeks after symptom onset. - no isolation required at this time unless physician suspects new infection. COVID-19 11/08/20 11/08/20 Aury Salmon RN 11/22/20 11/07/20 COVID-19 Rule Out 11/07/20 11/07/20 11/07/20 Respiratory Panel, Molecular, with COVID-19 (Restricted: peds pts or suitable admitted adults) (Ordered) 11/08/20 Aury Salmon RN Nurse Assessment: Last Vital Signs: BP 135/84 Pulse 86 Temp 98.1 F (36.7 C) (Temporal) Resp 17 Ht 5' 4 (1.626 m) Wt 128 lb (58.1 kg) SpO2 95% BMI 21.97 kg/m Last documented pain score (0-10 scale): Pain Level: 0 Last Weight: Wt Readings from Last 1 Encounters: 12/12/20 128 lb (58.1 kg) Mental Status: oriented and alert IV Access: - None Nursing Mobility/ADLs: Walking Independent Transfer Independent Bathing Independent Dressing Independent Toileting Independent Feeding Independent Medical Clinic Manager Assisted Med Delivery whole Wound Care Documentation and Therapy: Elimination: Continence: Bowel: Yes Bladder: Yes Urinary Catheter: None Colostomy/Ileostomy/Ileal Conduit: No Date of Last BM: 12/29/20 No intake or output data in the 24 hours ending 12/13/20 1104 No intake/output data recorded. Safety Concerns: hygeine and personal care Impairments/Disabilities: None Nutrition Therapy: Current Nutrition Therapy: - Oral Diet: General Routes of Feeding: Oral Liquids: Thin Liquids Daily Fluid Restriction: no Last Modified Barium Swallow with Video (Video Swallowing Test): not done Treatments at the Time of Hospital Discharge: Respiratory Treatments: none Oxygen Therapy: is not on home oxygen therapy. Ventilator: - No ventilator support Rehab Therapies: behavioral Weight Bearing Status/Restrictions: No weight bearing restirctions Other Medical Equipment (for information only, NOT a DME order): None Other Treatments: Patient's personal belongings (please select all that are sent with patient): Francisco Javier RN SIGNATURE: CASE MANAGEMENT/SOCIAL WORK SECTION Inpatient Status Date: 12/12/2020 Readmission Risk Assessment Score: Readmission Risk Risk of Unplanned Readmission: 19 Discharging to Facility/ Agency: [facility] Name: [facility] Address: [address] [place] [address] Dialysis Facility (if applicable) Name: Address: Dialysis Schedule: Phone: Fax: Cylinder Worker/Licensed Therapist signature: ICIAN SECTION Prognosis: Fair Condition at Discharge: Stable Rehab Potential (if transferring to Rehab): Fair Recommended Labs or Other Treatments After Discharge: Complete blood count, BMP panel in 3 days Physician Certification: I certify the above information and transfer of Jazmin Johnson is necessaryfor the continuing treatment of the diagnosis listed and that she requires [facility] Facilityfor less 30 days. Update Admission H&P: No change in H&P PHYSICIAN SIGNATURE: * Additional Instructions* Rolanda Lopez, PhD - 12/14/2020 Geriatrics Discharge Recommendations Please follow-up with outpatient psychiatry and addiction medicine (as well as Alcoholics Anonymousas we discussed during this hospital stay) to help you stop drinking alcohol altogether and feel better from a mood standpoint. Absolutely NO DRIVING when under the influence of alcohol or other substances. Psychology Discharge Recommendations: Outpatient mental health treatment to address depression/grief. [facility] Treatment Resources [place] [facility] [phone] ([phone]) [facility] Behavior[facility] Health Outpatient Clinics- for outpatient counseling and psychiatric medication management [phone] Offices in [facility], and [place] [facility] The Addiction Medicine Intensive Outpatient Program is a group therapy treatment program for those with substance use disorder diagnoses. Available days or evenings, the program runs three to four days a week, three hours a day, for an average of 16 to 20 sessions. Our program is abstinence-based and supports the use of a 12-step recovery program for obtaining and maintaining a chemical-free lifestyle. Alcoholics Anonymous (AA)/12-step program attendance, family involvement and random drug screenings are mandatory. [place] [id number] [facility], [address] [place] [address], [address] [place] [address], [address] [place] [address] [facility] [address], [address] [place] [address] documented in this encounter* Instructions* Trae Diaz DO - 01/14/2021 Discharge Instructions for Trauma Refrain from any activities that could put you at risk for injury to your head as you heal from this concussion injury over the next 3-4 weeks (such as ladders, contact sports, 4-roldan/ATV activities, etc.) You received a cognitive evaluation while hospitalized, follow all instructions given by the speech-language pathologist. For additional support and resources for you and your family contact the [facility] at [phone]. This center offers additional therapy, support groups, education and other resources at no cost. The center is located at [address] [place] [address]. You can also visit www.[facility].org for more information. What to do after you leave the hospital: General questions or concerns may be called to the trauma nurse line at [phone] and please leave a message. Trauma is a life-threatening condition. Your doctor will want to closely monitor you. Be sure to goto all of your appointments. Neurosurgery Instructions: Please obtain CT head prior to office visit with Dr. Byrnes * Attachments The following attachments cannot be sent through Care Everywhere. * Alcohol Intoxication: Acute (Bruneian) * Head Injury: Closed: General Info (Bruneian) * Subdural Hematoma (Bruneian) * Traumatic Brain Injury: Long-term Care (Bruneian) documented in this encounter Hospital Course * Endy Mauricio MD - 12/29/2020 10:37 AM EDT Discharge Summary Jazmin Johnson : 1950 ADMIT DATE: 12/12/2020 DISCHARGE DATE: 12/29/20 PRIMARY CARE PHYSICIAN: FRANK PALACIOS MD VISIT STATUS: Admission CODE STATUS: Full Code DISCHARGE DIAGNOSES: Acute encephalopathy multifactorial secondary to alcohol abuse/withdrawal, hyponatremia, subdural hematoma Chronic subdural hematoma Alcohol abuse/withdrawal Debility Hyponatremia,resolved Impaired gait/mobility Macrocytosis secondary to ethanol abuse-B12, folate normal Abnormal LFT secondary to ethanol abuse- hepatitis B, C panel negative Hypothyroidism Hyperlipidemia Anxiety/depression History of opiate addiction in past Vitamin D deficiency Status post covid pneumonia treated in November 2020 Medical noncompliance HOSPITAL COURSE: 70-year-old female past medical history of anxiety, depression, history of ethanol abuse, hyperlipidemia, hypothyroidism, opiate addiction, vitamin D deficiency Patient was admitted last month following altered mental status, workup consistent with acute on chronic subdural hematoma, no surgical intervention was done. She was also treated for acute respiratory insufficiency, Covid pneumonia. Admitted following inability to care for self. Patient was found by EMS covered in vomit and stool.Workup during this admission showed sodium 130, potassium 3.4, creatinine 0.3, magnesium 1.4, ammonia less than 9, ALT 36, AST 76, rest of LFT panel normal, ethanol 0.156, TSH elevated at 6.04, free T4 normal at 0.93. Urine tox screen, urine analysis was negative CT scan of head showed 1. Small relatively hyperdense lesions in the right temporal and inferior bifrontal lobes with surrounding vasogenic edema. Differential includes small hemorrhagic contusions however, tiny neoplastic lesions with edema could have a similar appearance. Contrast enhanced MRI could be performed for further evaluation. 2. Bifrontal extra-axial collections present chronic subdural hematomas, slightly decreased from the prior exam. MRI brain -1. Small bilateral subdural hemorrhages unchanged. Bitemporal and bifrontal edema, with some overlying subarachnoid and probably tiny parenchymal hemorrhages. Findings similar to the previous CT. Limited study. Seen by neurosurgical team, for abnormal CT/MRI brain with the recommendation of stable bifrontal subdural hematoma/hygroma. Recommended follow-up with neurosurgery team with repeat follow up MRI with and without contrast in 3-4 weeks time. She was treated for acute encephalopathy, multifactorial secondary to alcohol abuse/withdrawal, hyponatremia, chronic subdural hematoma. She was noted to have abnormal LFTs likely secondary to alcohol abuse, hepatitis B, C panel negative. Sodium on admission was 130, during hospitalization stay shehad a drop in sodium to 125, seen by nephrology team, started on IV fluid followed by sodium chloride 1 g tablet 3 times a day . Sodium at the time of discharge improved to 132. Sodium chloride tablet was discontinued per nephrology team.She needs to have a repeat BMP to be rechecked in 3 days time. She also had a hypokalemia, hypomagnesemia which was replaced. She had macrocytosis likely secondary to ethanol abuse, B12, folate level within normal limits. Seen by psychiatric team, addiction medicine team during hospitalization stay for anxiety/depression/alcohol withdrawal- completed treatment. TSH was elevated at 6, free T4 normal, patient was noncompliance with levothyroxine, restarted on same dose with plan to recheck TSH/free T4 level in 6-8 weeks time. She has a guardianship court hearing date on January 03, 2021. She was planned to be discharged to [facility] care facility for further treatment. On the day of discharge denies new symptom Vital signs stable On examination- Cardiovascular: S1S2 heard, RRR Respiratory: Decrease breath sound both bases Abdomen: Soft, non-tender, non-distended with normal bowel sounds. Extremity- no peripheral edema both lower extremities CONSULTANTS: Addiction medicine, geriatric, psychiatry, neurosurgery, nephrology RECOMMENDED NEXT STEPS: CBC, CMP panel in 3 days Follow-up with neurosurgery team with a repeat MRI brain with and without contrast in 3-4 weeks time DISCHARGE MEDICATIONS: Jazmin Johnson Home Medication Instructions EBONY:[id number] Printed on:12/28/20 2035 Medication Information docusate (COLACE, DULCOLAX) 100 MG CAPS Take 100 mg by mouth 2 times daily DULoxetine (CYMBALTA) 60 MG extended release capsule Take 60 mg by mouth daily folic acid (FOLVITE) 1 MG tablet Take 1 tablet by mouth daily Hyaluronic Acid-Vitamin C (HYALURONIC ACID PO) Take 100 mg by mouth daily Lactobacillus (ACIDOPHILUS PO) Take by mouth daily levothyroxine (SYNTHROID) 50 MCG tablet Take 1 tablet by mouth Daily melatonin 3 MG TABS tablet Take 1 tablet by mouth nightly Multiple Vitamins-Minerals (THERAPEUTIC MULTIVITAMIN-MINERALS) tablet Take 1 tablet by mouth daily QUEtiapine (SEROQUEL) 50 MG tablet Take 1 tablet by mouth nightly thiamine mononitrate 100 MG tablet Take 1 tablet by mouth daily vitamin B-12 500 MCG tablet Take 1 tablet by mouth daily vitamin D (ERGOCALCIFEROL) 1.25 MG (62237 UT) CAPS capsule Take 1 capsule by mouth once a week DIET: DIET GENERAL; ACTIVITY: No restriction. up with assist COMPLEXITY OF FOLLOW UP: [] Moderate Complexity: follow up within 7-14 calendar days (65868) [] Severe Complexity: follow up within 7 calendar days (86059) FOLLOW UP TESTING, PENDING RESULTS OR REFERRALS AT TRANSITIONAL CARE VISIT: [] Yes [] No PENDING STUDIES: No DISPOSITION: Inpatient Psych FACILITY/HOME CARE AGENCY NAME: Follow up with Frank Palacios MD [address] [facility] [address] In 5 [place] [facility] [address] [facility] [phone] Call in 2 weeks for memory (re)testing Jesus Wdasworth MD [address] [address] [facility] [address] Schedule an appointment as soon as possible for a visit in 3 weeks INSTRUCTIONS TO MA/SW: Please call patient on day after discharge (must document patient contacted within 2 business days of discharge). FOLLOW UP QUESTIONS FOR MA/SW: 1. Did you get medications filled and taking them as instructed from discharge? 2. Are you following your discharge instructions from your hospital stay? 3. Please confirm patient is scheduled for a follow up appointment within the above time frame. DISCHARGE TIME: > 30 minutes SIGNED: Endy Mauricio MD 12/28/2020, 6:55 PM documented in this encounter Chief Complaint and Reason for Visit Chief Complaint ACUTE ENCEPHALOPATHY , SUSPECT TRAZODONE OD ACUTE ENCEPHALOPATHY, SUSPECT TRAZODONE OD Reason for Visit Acute drug overdose Acute encephalopathy Alcohol withdrawal AA (alcohol abuse) Chief Complaint ACUTE ENCEPHALOPATHY , SUSPECT TRAZODONE OD ACUTE ENCEPHALOPATHY, SUSPECT TRAZODONE OD unresponsive Reason for Visit Acute drug overdose Acute encephalopathy Alcohol withdrawal Chief Complaint fall Chief Complaint fall SEIZURE, POST ICTAL, DEHYDRATION Reason for Visit Abnormal transaminas es Lactic acidosis Acute alteration in mental status Acute dehydration Acute kidney injury Acute respiratory failure Acute UTI Alcoholic hepatitis Erythrocytosis History of ETOH abuse Hyperbilirubinemia Hypercalcemia Leukocytosis Polysubstance abuse Post-ictal state Seizure Thrombocytopenia Toxic metabolic encephalopathy Chief Complaint fall SEIZURE, POST ICTAL, DEHYDRATION SEIZURES Seizure Seizure Reason for Visit Abnormal transaminas es Lactic acidosis Acute alteration in mental status Acute dehydration Acute kidney injury Acute respiratory failure Acute UTI Alcoholic hepatitis Erythrocytosis History of ETOH abuse Hyperbilirubinemia Hypercalcemia Leukocytosis Polysubstance abuse Post-ictal state Seizure Thrombocytopenia Toxic metabolic encephalopathy Chief Complaint fall SEIZURE, POST ICTAL, DEHYDRATION SEIZURES Seizure Seizure Seizure Seizure Reason for Visit Abnormal transaminas es Lactic acidosis Acute alteration in mental status Acute dehydration Acute kidney injury Acute respiratory failure Acute UTI Alcoholic hepatitis Erythrocytosis History of ETOH abuse Hyperbilirubinemia Hypercalcemia Leukocytosis Polysubstance abuse Post-ictal state Seizure Thrombocytopenia Toxic metabolic encephalopathy Chief Complaint SEIZURE, POST ICTAL, DEHYDRATION SEIZURES EKG Seizure Seizure Seizure Seizure JAIL LABWORK LAB WORK LABWORK JAIL LABWORK Reason for Visit Acute alteration in mental status Acute UTI Abnormal transaminases Lactic acidosis Acute dehydration Acute respiratory failure Chief Complaint JAIL [facility]WORK LABWORK LABWORK JAIL LABWORK Health Concerns Infection Onset Date Last Indicated Resolved Time C. difficile 09/18/2022 09/18/2022 Infection Onset Date Last Indicated Resolved Time C. difficile 09/18/2022 09/18/2022 COVID-19 Rule-Out 12/18/2022 12/18/2022 12/18/2022 1:56 PM EST Medications Administered Section Inactive Administered Medications - up to 3 most recent administrations Medication Order MAR Action Action Date Dose Rate Site propofol infusion (DIPRIVAN) 10-50 mcg/kg/min 73 kg Order-specific weight (4.38-21.9 mL/hr), INTRAVENOUS, CONTINUOUS, Starting on Sat12/18/22 at 0930, Until Sat12/18/22 at 1141, Titrate to a RASS of -4 to -5 (deep sedation). Start at 10 mcg/kg/min Titrate by 2-5 mcg/kg/min every 2-5 minutes. If spontaneous awakening trial (SAT) indicated, turn infusion off and monitor for SAT failure. If patient fails SAT per protocol, then re-start at one-half of the previous dose and titrate to RASS goal. EXPIRES 12 HOURS AFTER OPENED OR SPIKED Rate/Dose Change 12/18/2022 9:40 AM EST 30 mcg/kg/min 13.14 mL/hr Rate/Dose Change 12/18/2022 9:30 AM EST 25 mcg/kg/min 10.9 5 mL/hr Rate/Dose Change 12/18/2022 9:25 AM EST 20 mcg/kg/min 8.76 mL/hr Additional Source Comments INFORMATION SOURCE (unrecogn ized section and content) DATE CREATED AUTHOR 04/03/2018 [facility] DATE CREATED AUTHOR AUTHOR'S ORGANIZ ATION 02/15/2021 [facility] DATE CREATED AUTHOR AUTHOR'S ORGANIZ ATION 03/13/2021 [facility] DATE CREATED AUTHOR AUTHOR'S ORGANIZ ATION 03/18/2021 [facility] DATE CREATED AUTHOR AUTHOR'S ORGANIZ ATION 05/05/2021 [facility] DATE CREATED AUTHOR AUTHOR'S ORGANIZ ATION 11/19/2021 [facility] DATE CREATED AUTHOR AUTHOR'S ORGANIZ ATION 12/20/2022 [facility] DATE CREATED AUTHOR AUTHOR'S ORGANIZ ATION 01/11/2023 [facility] DATE CREATED AUTHOR AUTHOR'S ORGANIZ ATION 12/27/[address] [facility] Reason for Visit (unrecogniz ed section and content) Reason For Visit Description New - 1st visit with practice Preliminary reason f or visit data, not yet signed by the author as of left foot pain Reason Comments Healthcare Customer Service Exam Reason Comments Head Injury Altered Mental Status Reason Comments Altered Mental Status pt brought to ED b y EMS after family found her with vomit and stool on her clothing. Adult protective services involved D/T pt unable to care for self at home Reason Comments Fall Head Laceration Reason Comments Altered Mental Status x one day Reason Comments Alcohol Problem Status Reason Specialty Diagnoses / Procedures Referre d By Contact Referred To Contact Diagnoses Alcoholism (HCC) Encephalopathy Altered mental status, unspecified altered mental status type mental status changes Reason Comments Fall Pt presents to ED as Team 4 called from [facility]. Pt was noted by staff to be sitting in a chair appearing drowsy, dropped her phone and then stood to pick it up and fell forward hitting her head on the floor. Pt admits to being intoxicated, slurring words with extremely unsteady gait. Pt has 2 bottles of vodka on person. Pt brought to ED for evaluation Alcohol Intoxication Reason Comments Appointment Reason Comments Critical Care Transport Source Comments (unrecognize d section and content) In the event this informatio n is protected by the Federal Confidentiality of Alcohol and Drug Abuse Patient Records regulations: The Federal rules restrict any use of the information to criminally investigate or prosecute any alcohol or drug abuse patient.[facility] the event this information is protected by the Federal Confidentiality of Alcohol and Drug Abuse Patient Records regulations: The Federal rules restrict any use of the information to criminally investigate or prosecute any alcohol or drug abuse patient.[facility] the event this information is protected by the Federal Confidentiality of Alcohol and Drug Abuse Patient Records regulations: The Federal rules restrict any use of the information to criminally investigate or prosecute any alcohol or drug abuse patient.[facility] the event this information is protected by the Federal Confidentiality of Alcohol and Drug Abuse Patient Records regulations: The Federal rules restrict any use of the information to criminally investigate or prosecute any alcohol or drug abuse patient.[facility] Ordered Prescriptions (unrec ognized section and content) Prescription Sig Dispensed Refills Start Date End Da te docusate (COLACE, DULCOLAX) 100 MG CAPS Take 100 mg by mouth 2 times daily 60 capsule 0 10/24/2020 bacitracin 500 UNIT/GM ointment Apply topically 2 times daily to abrasion below the clavicle area. 1 Tube 0 10/24/2020 11/03/2020 levETIRAcetam (KEPPRA) 500 MG tablet Take 1 tablet by mouth 2 times daily for 6 days 12 tablet 0 10/24/2020 10/30/2020 acetaminophen (TYLENOL) 500 MG tablet Take 2 tablets by mouth every 8 hours 120 tablet 3 10/24/2020 docusate sodium (COLACE, DULCOLAX) 100 MG CAPS Take 100 mg by mouth 2 times daily 60 capsule 0 10/23/2020 10/24/2020 bacitracin 500 UNIT/GM ointment Apply topically 2 times daily to abrasion below the clavicle area. 1 Tube 0 10/23/2020 10/24/2020 levETIRAcetam (KEPPRA) 500 MG tablet Take 1 tablet by mouth 2 times daily for 6 days 12 tablet 0 10/23/2020 10/24/2020 acetaminophen (TYLENOL) 500 MG tablet Take 2 tablets by mouth every 8 hours 120 tablet 3 10/23/2020 10/24/2020 Prescription Sig Dispensed Refills Start Date End Da te vitamin B-12 500 MCG tablet Take 1 tablet by mouth daily 30 tablet 3 12/28/2020 QUEtiapine (SEROQUEL) 50 MG tablet Take 1 tablet by mouth nightly 60 tablet 3 12/27/2020 Scheduled Active and Recently Administ ered Medications (unrecognized section and content) Medication Order 03/15/2021 03/16/2021 03/17/2021 DULoxetine (CYMBALTA) DR capsule 60 mg 60 mg, Oral, Daily, First dose on 03/11/21 at 0900, DO NOT CRUSH OR CHEW. 0800 (Given - Provider: Beatriz Hudson RN) 0809 (Given - Provider: Cornelia Watt RN) 0801 (Given - Provider: Antoinette Chavez RN) enoxaparin (LOVENOX) syringe 40 mg 40 mg, Subcutaneous, Daily, First dose on 03/11/21 at 1415, Administer in abdomen unless otherwise directed by prescriber. Notify physician if patient refuses., Indication: VTE Prophylaxis 0800 (Given - Provider: Beatriz Hudson RN) 0810 (Given - Provider: Cornelia Watt RN) 0802 (Given - Provider: Antoinette Chavez RN) folic acid (FOLVITE) tablet 1 mg 1 mg, Oral, Daily, First dose on Sat03/15/21 at 1300 1416 (Given - Provider: Beatriz Hudson RN) 0809 (Given - Provider: Cornelia Watt RN) 0801 (Given - Provider: Antoinette Chavez RN) levothyroxine (SYNTHROID, LEVOTHROID) tablet 50 mcg 50 mcg, Oral, Daily, First dose on Sat03/11/21 at 0715, For patients on continuous tube feed: Hold TF from 1 hr before until 1 hr after each dose. TF rate may need adjustment to meet caloric needs. 0607 (Given - Provider: Flory Jones RN) 0610 (Given - Provider: Flory Jones RN) 0628 (Given - Provider: Pratima Hays RN) metoprolol succinate (TOPROL-XL) 24 hr tablet 25 mg 25 mg, Oral, Daily, First dose on Sat03/11/21 at 0900, DO NOT CRUSH OR CHEW. 0800 (Given - Provider: Beatriz Hudson RN) 0810 (Given - Provider: Cornelia Watt RN) 0801 (Given - Provider: Antoinette Chavez RN) multivitamin (THERAGRAN) per tablet 1 tablet 1 tablet, Oral, Daily, First dose on Sat03/15/21 at 1300 1417 (Given - Provider: Beatriz Hudson RN) 0810 (Given - Provider: Cornelia Watt RN) 0802 (Given - Provider: Antoinette Chavez RN) thiamine tablet 100 mg 100 mg, Oral, 3 times daily, First dose (after last modification) on Sat03/14/21 at 0900 0800 (Given - Provider: Beatriz Hudson RN)1417 (Given - Provider: Beatriz Hudson RN)2118 (Given - Provider: Flory Jones RN) 0809 (Given - Provider: Cornelia Watt RN)1606 (Given - Provider: Cornelia Watt RN)1950 (Given - Provider: Pratima Hays RN)2100 (Canceled Entry - Provider: Pratima Hays RN) 0801 (Given - Provider: Antoinette Chavez RN) PRN Medication Order 03/15/2021 03/16/2021 03/17/2021 acetaminophen (TYLENOL) tablet 650 mg 650 mg, Oral, Every 4 hours PRN, headaches, pain, Starting on 03/11/21 at 1321 0800 (Given - Provider: Beatriz Hudson RN) 0810 (Given - Provider: Cornelia Watt RN) dicyclomine (BENTYL) capsule 10 mg 10 mg, Oral, Every 6 hours PRN, as needed for abdominal cramps, Starting on 03/11/21 at 1321 hydrOXYzine (ATARAX) tablet 50 mg 50 mg, Oral, Every 6 hours PRN, anxiety, Starting on 03/12/21 at 1230 1254 (Given - Provider: Cornelia Watt, ANGY)1950 (Given - Provider: Pratima Hays RN) 0628 (Given - Provider: Pratima Hays RN) lidocaine (LIDODERM) 1 patch 1 patch, Transdermal, Administer over 12 Hours, Daily PRN, mild pain, Starting on Tu03/14/21 at 1304, For 1 dose, Apply to right shoulder for 12 hours, then remove patch for 12 hours. loperamide (IMODIUM) capsule 2 mg 2 mg, Oral, As needed, diarrhea, after each loose stool, Starting on 03/11/21 at 1321, [] Maximum 8 doses per 24 hour period. sodium chloride (PF) (NS) flush 5 mL(Linked Group 1) 5 mL, Intravenous, As needed, line care, Starting on 03/11/21 at 0138 sodium chloride 0.9% (NS)(Linked Group 1) 0-150 mL/hr, Intravenous, As needed, To flush line after IV infusions when no maintenance IV ordered or a compatibility issue. Infuse 20ml at the same rate as the secondary infusion, Starting on 03/11/21 at 0138, Run as Primary IV. NOT intended for KVO. traZODone (DESYREL) tablet 50 mg 50 mg, Oral, Nightly PRN, sleep, Starting on 03/11/21 at 1321 2118 (Given - Provider: Flory Jones, ANGY) 1950 (Given - Provider: Pratima Hays, ANGY) Linked Groups Order Group 1: Insert peripheral IV (COMPLETED) KIESHA, Once, On 03/11/21 at 0140, For 1 occurrence And Saline lock IV (CANCELED) KIESHA, Once, On 03/11/21 at 0140, For 1 occurrence And sodium chloride (PF) (NS) flush 5 mLJump to med 5 mL, Intravenous, As needed, line care, Starting on 03/11/21 at 0138 And sodium chloride 0.9% (NS)Jump to med 0-150 mL/hr, Intravenous, As needed, To flush line after IV infusions when no maintenance IV ordered or a compatibility issue. Infuse 20ml at the same rate as the secondary infusion, Starting on 03/11/21 at 0138
Run as Primary IV. NOT intended for KVO.
Goals (unrecognized section and content) Goals may be documented in a n alternate sectionGoals may be documented in an alternate sectionGoals may be documented in an alternate sectionGoals may be documented in an alternate section No data available for this section Care Teams (unrecognized sec tion and content) Ldr Rn Relationship Specialty Start Date End Date Khai Palacios Chi [address] [facility] [address] [place] [address] PCP - General Gerontology 06/08/20 Kong Giordano MD [address] [facility] [place] [address] STEAM ROOM ATTENDANT 06/15/20 Silvana Somers MD [address] [facility] [address] [place], [place] [id number] Gynecology 06/15/20 Team Status: Active Member Role Status Dates Dr. Khai Palacios MD Family Provider Active Dr. Khai Palacios MD Primary Care Provider Active Team Status: Inactive Member Role Status Dates Dr. Khai Palacios MD Primary Care Provider Active Dr. Khanh Arias DO Attending Provider, Emergency P rovider Active Team Status: Active Member Role Status Dates Dr. Khai Palacios MD Primary Care Provider, Attending Provider Active Team Status: Active Member Role Status Dates Dr. Khai Palacios MD Primary Care Provider Active Dr. George Han MD Emergency Provider Active Dr. Nidia Pham , DO Admit Provider, Attending Provide r Active Team Status: Active Member Role Status Dates Dr. Khai Palacios MD Primary Care Provider Active Dr. George Han MD Emergency Provider Active Dr. Nidia Pham , DO Admit Provider, Attending Provide r, Other Provider Active Team Status: Active Member Role Status Dates Dr. Khai Palacios MD Primary Care Provider Active Dr. George Han MD Emergency Provider Active Dr. Nidia Pham DO Admit Provider, Other Provider Ac tive Dr. Paco Thompson MD Other Provider Active Dr. Roberth Aldana , Attending Provider, Other Provide r Active Dr. Ankit Izquierdo MD Other Provider Active Dr. Julian Martinez MD Other Provider Active Evie Bazan [employer] Other Provider Active Dr. Danya Alonzo MD Other Provider Active Dr. Oscar Topete MD Other Provider Active Dr. Rd Kincaid MD Other Provider Active Dr. Jessiac Garcia MD Other Provider Active Dr. Rk Nelson MD Other Provider Active Dr. Justino Kathleen MD Other Provider Active Dr. Osvaldo Lee MD Other Provider Active Dr. Bill Dubon DO Other Provider Active Su Bautista [employer] Other Provider Active Team Status: Active Member Role Status Dr. Khai Palacios MD Primary Care Provider Active Dr. George Han MD Emergency Provider Active Dr. Nidia Pham , Admit Provider, Other Provider Ac tive Dr. Paco Thompson MD Other Provider Active Dr. Roberth Aldana , Other Provider Active Dr. Ankit Izquierdo MD Other Provider Active Dr. Julian Martinez MD Other Provider Active Evie Bazan NP, [employer] Other Provider Active Dr. Danya Alonzo MD Other Provider Active Dr. Oscar Topete MD Other Provider Active Dr. Rd Kincaid MD Other Provider Active Dr. Jessica Garcia MD Other Provider Active Dr. Rk Nelson MD Other Provider Active Dr. Justino Kathleen MD Other Provider Active Dr. Osvaldo Lee MD Other Provider Active Dr. Bill Dubon , Other Provider Active Su Bautista [employer], [employer] Attending Provider, Other Prov ider Active Team Status: Inactive Member Role Status Dates Dr. Khai Palacios MD Primary Care Provider Active Dr. George Han MD Emergency Provider Active Dr. Nidia Pham , DO Admit Provider, Other Provider Ac tive Dr. Paco Thompson MD Other Provider Active Dr. Roberth Aldana , DO Other Provider Active Dr. Ankit Izquierdo MD Other Provider Active Dr. Julian Martinez MD Other Provider Active Evie Bazan [employer], [employer] Other Provider Active Dr. Danya Alonzo MD Attending Provider Active Dr. Oscar Topete MD Other Provider Active Dr. Rd Kincaid MD Other Provider Active Dr. Jessica Garcia MD Other Provider Active Dr. Rk Nelson MD Other Provider Active Dr. Justino Kathleen MD Other Provider Active Dr. Osvaldo Lee MD Other Provider Active Dr. Bill Dubon , Other Provider Active Su B[employer]ista [employer], [employer] Other Provider Active Ldr Rn Relationship Specialty Start Date End Date Khai Palacios Chi [address] [facility] [address] [place] [address] PCP - General Gerontology 06/08/20 Kong Giordano MD [address] [facility] [place] [address] STEAM ROOM ATTENDANT 06/15/20 Silvana Somers MD [address] [facility] [address] [place] [address] Gynecology 06/15/20 Team Status: Active Member Role Status Dates Dr. Khai Palacios MD Primary Care Provider Active Dr. George Han MD Emergency Provider Active Dr. Nidia Pham , DO Admit Provider, Other Provider Ac tive Dr. Paco Thompson MD Other Provider Active Dr. Roberth Aldana , DO Other Provider Active Dr. Ankit Izquierdo MD Other Provider Active Dr. Julian Martinez MD Other Provider Active Evie Bazan [employer] Other Provider Active Dr. Danya Alonzo MD Attending Provider, Other Prov ider Active Dr. Oscar Topete MD Other Provider Active Dr. Rd Kincaid MD Other Provider Active Dr. Jessica Garcia MD Other Provider Active Dr. Rk Nelson MD Other Provider Active Dr. Justino Kathleen MD Other Provider Active Dr. Osvaldo Lee MD Other Provider Active Dr. Bill Dubon DO Other Provider Active Su Bautista [employer] Other Provider Active Team Status: Inactive Member Role Status Dates Dr. Khai Palacios MD Primary Care Provider, Attending Provider Active Team Status: Active Member Role Status Dates Dr. Khai Palacios MD Primary Care Provider Active Dr. George Han MD Emergency Provider Active Dr. Nidia Pham , DO Admit Provider, Other Provider Ac tive Dr. Paco Thompson MD Other Provider Active Dr. Roberth Aldana DO Attending Provider, Other Provide r Active Dr. Ankit Izquierdo MD Other Provider Active Dr. Julian Martinez MD Other Provider Active Evie Bazan NP, [employer] Other Provider Active Dr. Danya Alonzo MD Referring Provider, Other Prov ider Active Dr. Oscar Topete MD Other Provider Active Dr. Rd Kincaid MD Other Provider Active Dr. Jessica Garcia MD Other Provider Active Dr. Rk Nelson MD Other Provider Active Dr. Justino Kathleen MD Other Provider Active Dr. Osvaldo Lee MD Other Provider Active Dr. Bill Dubon DO Other Provider Active Su [employer] Other Provider Active Team Status: Active Member Role Status Dates Dr. hKai Palacios MD Primary Care Provider, Referring Provider Active Dr. George Han MD Emergency Provider Active Dr. Nidia Pham , Admit Provider, Other Provider Ac tive Dr. Paco Thompson MD Other Provider Active Dr. Roberth Aldana DO Other Provider Active Dr. Ankit Izquierdo MD Other Provider Active Dr. Julian Martinez MD Other Provider Active Evie Bazan NP, [employer] Other Provider Active Dr. Danya Alonzo MD Other Provider Active Dr. Oscar Topete MD Other Provider Active Dr. Rd Kincaid MD Other Provider Active Dr. Jessica Garcia MD Other Provider Active Dr. Rk Nelson MD Other Provider Active Dr. Justino Kathleen MD Other Provider Active Dr. Osvaldo Lee MD Other Provider Active Dr. Bill Dubon DO Other Provider Active Su B[employer] Attending Provider, Other Prov ider Active Team Status: Active Member Role Status Dates Dr. Khai Palacios MD Primary Care Provider Active Dr. Bj Newman MD Attending Provider Active Dr. Nidia Pham DO Referring Provider Active Team Status: Inactive Member Role Status Dates Dr. Khai Palacios MD Primary Care Provider Active Dr. George Han MD Emergency Provider Active Dr. Nidia Pham DO Admit Provider, Other Provider Ac tive Dr. Danya Alonzo MD Attending Provider Active Dr. Oscar Topete MD Other Provider Active Dr. Rd Kincaid MD Other Provider Active Dr. Jessica Garcia MD Other Provider Active Dr. Rk Nelson MD Other Provider Active Dr. Justino Kathleen MD Other Provider Active Dr. Osvaldo Lee MD Other Provider Active Dr. Bill Dubon DO Other Provider Active Su [employer] Other Provider Active Dr. Paco Thompson MD Other Provider Active Dr. Roberth Aldana DO Other Provider Active Dr. Ankit Izquierdo MD Other Provider Active Dr. Julian Martinez MD Other Provider Active Evie Bazan [employer], [employer] Other Provider Active Team Status: Active Member Role Status Dates Dr. Khai Palacios MD Primary Care Provider Active Dr. Araceli PHAM MD Attending Provider Active Team Status: Inactive Member Role Status Dates Dr. Khai Palacios MD Primary Care Provider Active Miguel PHAM MD Attending Provider Active Team Status: Inactive Member Role Status Dates Dr. Khai Palacios MD Primary Care Provider Active Bari PHAM MD Attending Provider Active FOR RECORDS PERTAINING TO PATIENTS WHO ARE OR HAVE BEEN ENROLLED IN A CHEMICAL DEPENDENCY/SUBSTANCEABUSE PROGRAM, SOME INFORMATION MAY BE OMITTED. This clinical summary was aggregated from multiple sources. Caution should be exercised in using it in the provision of clinical care. This summary normalizes information from multiple sources, and as a consequence, information in this document may materially change the coding, format and clinical context of patient data. In addition, data may be omitted in some cases. CLINICAL DECISIONS SHOULD BE BASED ON THE PRIMARY CLINICAL RECORDS. [facility]. provides no warranty or guarantee of the accuracy or completeness of information in this document.
[2025-03-22 07:50] LABS: Absolute Lymphocyte Count 2.41 X10^3/uL (0.83-4.51); Absolute Neutrophil Count 3.8 X10^3/uL (2.0-7.7); Basophil# 0.05 X10^3/uL; Basophil% 0.7 % (0-1); Eosinophil# 0.16 X10^3/uL; Eosinophils% 2.2 % (0-5); Hematocrit 40.4 % (37-47); Hemoglobin 13.1 g/dL (12.0-15.0); Lymphocyte # 2.41 X10^3/ul (0.83-4.51); Lymphocyte % 33.8 % (19-41); Mean Corp Hgb Conc 32.4 g/dL (32-36); Mean Corpuscular Hgb 28.9 pg (27.0-32.0); Mean Platelet Vol. 11.6 fl (6.2-12.0); Monocyte# 0.74 X10^3/uL; Monocyte% 10.4 % (0-10); NRBC Flagged by Analyzer 0 % (0-5); Neutrophil # 3.75 X10^3/uL (2.7-7.7); Neutrophil % 52.6 % (47-70); Platelet Count 174 K/mm3 (150-450); RBC Distribution Width CV 15.2 % (11.6-14.6); Red Blood Count 4.54 M/mm3 (4.2-5.4); White Blood Count 7.1 K/mm3 (4.4-11.0)
[2025-03-22 08:06] LABS: Hemoglobin A1c 5.7 % (<=5.6)
[2025-03-22 08:42] LABS: T4 Total, Thyroxin 6.2 ug/dL (4.8-13.9); Vitamin D,25 Hydroxy 14.6 ng/mL (30-100)
[2025-03-22 08:46] LABS: ALB/GLOB Ratio 1.1 RATIO (0.9-2.4); AST(SGOT) 14 U/L (<=31); Alanine Aminotransfer ALT/SGPT < 5 U/L (<=34); Albumin, Serum 3.5 g/dL (3.4-4.8); Alkaline Phosphatase 82 U/L (35-104); Anion Gap 10 (5-15); BUN 19 mg/dL (4-19); BUN/Creat Ratio 24.8 RATIO (10-20); Calcium,Total 9.2 mg/dL (7.6-11.0); Carbon Dioxide 21.9 mmol/L (21.0-32.0); Chloride 109 mmol/L (98-108); Creatinine, Serum 0.77 mg/dL (0.70-1.20); EST Glomerular Filtration Rate 82 (>60); Globulin 3.2 g/dL (2.2-4.2); Glucose 83 mg/dL (70-99); Potassium 4.1 mmol/L (3.3-5.1); Protein, Total 6.7 g/dL (5.9-8.4); Sodium Level 141 mmol/L (133-145); Total Bilirubin 0.24 mg/dL (0.00-1.30)
== END ==
LOC: OLS.BROOKB 04:00
PROVIDERS: PCP Family Medicine Geriatric Medicine; Referring Provider Family Medicine; Visit Provider Family Medicine
DX: E51.2 Wernicke's encephalopathy (principal); E87.6 Hypokalemia; F33.9 Major depressive disorder, recurrent, unspecified
CPT/HCPCS: 36415; 80053; 82306; 83036; 84436; 84443; 85025

== ENCOUNTER → 2025-05-05 | Outpatient (REF) | payer SELFPAY ==
--- OUTSIDE RECORDS SUMMARY | 2025-05-05 04:04 | XMS RPT_ITS | CCD ---
Author Organization [facility] Care Team Providers Care Environmental Service Aide Name Role Phone JACK NATHAN Unavailable Unavailable [facility] Unavailable Unavailable KONG PATEL Unavailable Unavailable [facility] Unavailable Unavailable [facility] Unavailable Unavailable Joe Song PA-C Unavailable [phone] Khai Palacios Chi Primary Care Provider Unavailable Primary Care Provider UnavailFrank Mir Primary Care Provider Frank Palacios Primary Care Provider FRANK PALACIOS Primary Care Unavailable SHANDRA COLE Admitting Unavail able FITZ BYRNES Consulting Unavailable SHANDRA COLE Attending Unavail able Khai Palacios MDFroy Primary Care Provider [phone] No, Physician Primary Care Provider Unavailabl e SERVICE, MEDONE TEACHING Consulting Unavail able ARIES LANDON Attending Unavailable GANESH LUNA Admitting Unavail able SYSTEM, PROVIDER NOT IN Referring Unavaila ble CAROL HONG Consulting Unavailabl e MURIEL GOODRICH Consulting VON Fay Admitting Unavailable TIGRE MARLEY Referring Unavailable CONSULT, IP BURN Consulting Unavailable JOE VILLAREAL Attending Unavailable REQUEST, IP OVERSEAMER SERVICE Consul ting Unavailable CONSULT, IP DERMATOLOGY [...] Julian Martinez Other Provider Unavailab landon Bazan INTERNET DATABASE SPECIALIST, INTERNET DATABASE SPECIALIST-C Evie Other Provider Dr. Danya Alonzo Other Provider Dr. Oscar Topete Other Provider Dr. Rd Kincaid Other Provider Dr. Jessica Garcia Other Provider Dr. Rk Nelson Other Provider Dr. Justino Kathleen Other Provider Unavailable Dr. Osvaldo Lee Other Provider Dr. Bill Dubon Other Provider Michele INTERNET DATABASE SPECIALIST, INTERNET DATABASE SPECIALIST-C Su Other Provider Michele INTERNET DATABASE SPECIALIST, INTERNET DATABASE SPECIALIST-C Su Attending Provider Dr. Danya Alonzo Attending Provider JENNYFER MERCADO Admitting Unavailable MAHAJANAP WHEELER-KIT Consulting Unavaila OSCAR Ruelas Attending Unavail able DANYA ALONZO Referring Unavailable CHITO, KHAI CHI Primary Care Unavailable MALLAT, ALI Admitting Unavailable AL-ALI, FIRAS Consulting Unavailable MUJOSEFINA MAGANAID BRANDY Attending Unavailabl e CHITO, KHAI CHI Primary Care Unavailable Dr. Khai Palacios Chi Primary Care Provider 1([facility])[phone] Dr. George Han Emergency Provider Dr. Nidia Pham Admit Provider Dr. Nidia Pham Attending Provider 1([facility])[phone] Nidia Pham Other Provider Dr. Bj Newman Attending Provider 1([facility])[phone] Nidia Pham Referring Provider 1([facility])[phone] Paco Thompson Other Provider Dr. Roberth Aldana Attending Provider 1([facility])[phone] Roberth Aldana Other Provider Dr. Ankit Izquierdo Other Provider 1([facility])[phone] Julian Martinez Other Provider Unavailab landon Bazan INTERNET DATABASE SPECIALIST, INTERNET DATABASE SPECIALIST-C Evie Other Provider Dr. Danya Alonzo Referring Provider 1([facility])[phone] Dr. Danya Alonzo Other Provider 1([facility])[phone] Oscar Topete Other Provider Dr. Rd Kincaid Other Provider Dr. Jessica Garcia Other Provider Dr. Rk Nelson Other Provider Dr. Justino Kathleen Other Provider Unavailable Dr. Osvaldo Lee Other Provider 1([facility])[phone] Bill Dubon Other Provider 1([facility])[phone] Michele INTERNET DATABASE SPECIALIST, INTERNET DATABASE SPECIALIST-C Su Other Provider 1([facility])[phone] Dr. Danya Alonzo Attending Provider 1([facility])[phone] Dr. Khai Palacios Chi Referring Provider Michele MCCALLUM, STEPHENC Su Attending Provider [phone] NABIL LUCIANO, KENZIE Fuentes Primary Care Physician [phone] Khai Palacios Chi Primary Care Unavailable Faina Berman Referring Unavailable Faina Berman Attending Unavailable Khai Palacios Chi Primary Care Unavailable Faina [...] take one tablet once daily ATORVASTATIN CALCIUM [id number] Joe Song PA-C Comment on above: atorvastatin [...] Vitamin D Cholecalciferol (VITAMIN D3) 50 MCG (1999 UT) CAPS Take by mouth daily 0 [...] 100 mg, Oral, DAILY, First dose on 01/14/21 [...] Active Start: 11-21-2020 take 1 capsule by ak uth every week vitamin D (ERGOCALCIFEROL) 1.25 MG (79983 UT) CAPS capsule Take 1 capsule by [...] tablet 2 03/16/2021 Active Multiple Vitamins-Minerals (THERAPEUTIC MULTIVITAMIN-INDUSTRIAL GAS FITTER ALS) tablet (1 source) take 1 tablet [...] inje ction 30 mg polyethylene glycol [id number] [id number] mg powder for oral solution (4 sources) [...] 100 mg, Oral, NIGHTLY, First dose on Sat12/13/20 at 2100 sennosides, residential 8.6 mg oral tablet (1 source) Start: [...] 100 mg, Intravenous, DAILY, First dose on Sat10/20/20 at 0900 traZODone hydrochloride 50 mg oral [...] and a half at bedtime TRAZODONE HCL [id number] Joe Song PA-C Start: 12-26-2014 End: 02-06-2022 [...] 500 mcg, Oral, DAILY, First dose on Tu12/13/20 at 1145 End: 12-27-2020 Cyanocobalamin (VITAMIN B-12 [...] 500 MG TABS take as needed ACETAMINOPHEN [id number] Joe Song PA-C Comment on above: Take 2 tablets by [facility] every 8 hours as needed for pain. [...] 60 mg, Oral, DAILY, First dose on Sat01/14/21 at 0900 Do not crush or break. May add contents of capsule to apple juice or apple sauce, but not chocolate. Start: 12-20-2020 DULoxetine (CY MBALTA) extended release capsule 30 mg Start: 05-14-2019 CYMBALTA CPEP take one capsule once daily DULOXETINE HCL CPEP [id number] Joe Song PA-C Start: 12-26-2014 End: 12-19-2020 take 1 capsule by mouth once daily 60 mg, Oral, DAILY, First dose on Tu12/13/20 at 1145 Do not crush or break. [...] Anesthetic Start: 01-13-2021 End: 01-13-2021 lidocaine-EPINEPHrine 2 percent-1:[id number] injection folic acid 1 mg oral tablet [...] mL IVPB (1 source) Start: 10-19-2020 End: 01-07-2021 levETIRAcetam (KEPPRA) 500 mg in sodium chloride [...] take one tablet once daily LEVOTHYROXINE SODIUM [id number] Joe Song PA-C levothyroxine so dium (SYNTHROID [...] or with frequent/long duration piggyback infusions, Starting 02/15/21 at 2006 Administer at the same rate as the piggyback being infused. Start: 02-15-2021 take 5-40 mL intrave nously once as needed 5-40 mL, Intravenous, PRN, Line Care, After every IV line use, Starting 02/15/21 at 2006 For Line Patency: Peripheral IV [...] unspecified] 12-16-2022 Chronic Disorders of lipid metabolism (9 sources) Hyperlipidemia; Translations: [Hyperlipidemia, unspecified] Onset: 5 02-05-2022 Chronic E Codes: Fall (10 sources) [...] insomnia] Onset: 1 10-23-2020 Chronic Mood disorders (14 sources) Recurrent major depression in partial remission; Translations: [Major depressive disorder, recurrent, in partial remission] Onset: 1 10-23-2020 Chronic Nutritional deficiencies (5 sources) Vitamin D deficiency; Translations: [Vitamin D deficiency, unspecified] Onset: 1 10-23-2020 Chronic Nutritional deficiencies (6 sources) Cobalamin deficiency; Translations: [Deficiency of other specified B group vitamins] Onset: 1 10-23-2020 Episodic Open wounds of head; neck; and trunk [...] personal risk factors, not elsewhere classified] Onset: 1 12-15-2020 Episodic Residual codes; unclassified (7 sources) [...] face] Onset: 9 05-14-2019 Episodic Thyroid disorders (10 sources) Hypothyroidism; Translations: [Hypothyroidism, unspecified] Onset: 3 [...] space of neuraxis] Onset: 11-07-2020 10-20-2020 Episodic Other connective tissue disease (1 source) Repeated falls; Translations: [Falls frequently] Onset: 09-14-2022 Episodic Other injuries and conditions due to external causes (1 source) Injury of head Episodic Unclassified (1 source) Alcohol use, unspecified with intoxication, uncomplicated Onset: 09-04-2017 Unclassified (1 source) Problem Results Test Name Value Interpretation Reference Range Facil ity Absolute lymphocyte countOrd ered By: Bari Wushannonconstantin on 05-03-2023 Lymphocytes Auto (Unsp spec) [#/Vol] 1.71 10*3/uL 0.83-4.51 [facility] Basophil percentageOrdered B y: Bari Albert on 05-03-2023 Basophils/100 WBC (Bld) 1.0 % 0-1 [facility] Bilirubin [Mass/Vol] 0.20 mg/dL 0.20-1.00 [facility] Comment on above: For patients on eltr ombopag therapy, use of Dimension Burnett TBIL is not recommended. Chloride [Moles/Vol] 112 mmol/L 98-107 [facility] Eosinophils/100 WBC (Bld) 1.3 % 0-5 [facility] Glucose [Mass/Vol] 96 mg/dL 74-106 [facility] Neutrophils (Bld) [#/Vol] 4.0 10*3/uL 2.0-7.7 [facility] Neutrophils/100 WBC (Bld) 59.3 % 47-70 [facility] Potassium [Moles/Vol] 4.3 mmol/L 3.5-5.1 [facility] Protein [Mass/Vol] 7.2 g/dL 6.4-8.2 [facility] Sodium [Moles/Vol] 143 mmol/L 136-145 [facility] WBC (Bld) [#/Vol] 6.8 10*3/uL 4.4-11.0 [facility] Blood erythrocytes count (nu mber/volume)Ordered By: Bari Price on 05-03-2023 RBC (Bld) [#/Vol] 4.32 10*6/uL 4.2-5.4 [facility] Blood hemoglobin measurement (mass/volume)Ordered By: Bari Price on 05-03-2023 Hemoglobin (Bld) [Mass/Vol] 12.8 g/dL 12.0-15.0 [facility] Blood lymphocytes/100 leukoc ytesOrdered By: Bari Price on 05-03-2023 Lymphocytes/100 WBC (Bld) 25.0 % 19-41 [facility] Blood monocytes/100 leukocyt esOrdered By: Bari Price on 05-03-2023 Monocytes/100 WBC (Bld) 13.3 % 0-10 [facility] Blood platelet mean volumeOr dered By: Bari Price on 05-03-2023 Platelet mean volume (Bld) [Entitic vol] 11.3 fL 6.2-12.0 [facility] Determination of erythrocyte mean corpuscular volume (MCV)Ordered By: Bari Price on 05-03-2023 MCV (RBC) [Entitic vol] 95.8 fL 81-99 [facility] Hematocrit Auto (Bld) [Volum e fraction]Ordered By: Bari Price on 05-03-2023 Hematocrit (Bld) [Volume fraction] 41.4 % 37-47 [facility] Laboratory - Chemistry and C hemistry - challengeOrdered By: Bari Price on 05-03-2023 ALP [Catalytic activity/Vol] 99 U/L 45-117 [facility] ALT [Catalytic activity/Vol] 18 U/L 13-56 [facility] CO2 [Moles/Vol] 25.0 mmol/L 21.0-32.0 [facility] Globulin (S) [Mass/Vol] 4.1 g/dL 2.2-4.2 [facility] Natriuretic peptide B (Bld) [Mass/Vol] 4.3 pg/mL 0-100 [facility] Urea nitrogen/Creatinine [Mass ratio] 39.1 mg/mg 10-20 [facility] - Hematology and Cell countsOrdered By: Bari Price on 05-03-2023 Erythrocyte distribution width (RBC) [Entitic vol] 49.3 fL 35.1-43.9 [facility] Erythrocyte distribution width (RBC) [Ratio] 13.9 % 11.6-14.6 [facility] Immature granulocytes/100 WBC (Bld) 0.100 % 0.0-0.9 [facility] Comment on above: IG% - Immature Granu locytes (promyelocytes, myelocytes and metamyelocytes) > 1% indicates that a LEFT SHIFT is Present. MCH (RBC) [Entitic mass] 29.6 pg 27.0-32.0 [facility] Nucleated RBC/100 WBC (Bld) [Ratio] 0 % 0-5 [facility] MCHC Auto (RBC) [Mass/Vol]Or dered By: Bari Price on 05-03-2023 MCHC (RBC) [Mass/Vol] 30.9 g/dL 32-36 [facility] No Panel InformationOrdered By: Bari Price on 05-03-2023 Estimated GFR (MDRD) Amer 117 mL/min >60 [facility] Comment on above: GFR Calc Estimated GFR (MDRD) Non-Af Amer 97 mL/min >60 [facility] Comment on above: Non- GFR Calc Platelets bldOrdered By: Rolando Price on 05-03-2023 Platelets (Bld) [#/Vol] 232 10*3/uL 150-450 [facility] Serum or plasma albumin cony urement (mass/volume)Ordered By: Bari Price on 05-03-2023 Albumin [Mass/Vol] 3.1 g/dL 3.2-5.0 [facility] Serum or plasma albumin/glob ulin mass ratioOrdered By: Bari Price on 05-03-2023 Albumin/Globulin [Mass ratio] 0.8 {ratio} 0.9-2.4 [facility] Serum or plasma calcium cony urement (mass/volume)Ordered By: Bari Price on 05-03-2023 Calcium [Mass/Vol] 9.6 mg/dL 8.5-10.1 [facility] Serum or plasma creatinine m easurement (mass/volume)Ordered By: Bari Price on 05-03-2023 Creatinine [Mass/Vol] 0.64 mg/dL 0.55-1.02 [facility] Comment on above: The validity of the calculated GFR & GFRAA in patients over 70 years has not been determined. Clinical correlation is essential. Serum or plasma urea nitroge n measurement (mass/volume)Ordered By: Bari Price on 05-03-2023 Urea nitrogen [Mass/Vol] 25 mg/dL 7-18 [facility] Thin prep Papanicolaou smear with manual screeningOrdered By: Bari Price on 05-03-2023 Thin prep Papanicolaou smear with manual screening 18 U/L 15-37 [facility] Thin prep Papanicolaou smear with manual screening 6 5-15 [facility] Absolute lymphocyte countOrd ered By: Miguel Rosenberg on 03-18-2023 Lymphocytes Auto (Unsp spec) [#/Vol] 2.26 10*3/uL 0.83-4.51 [facility] Basophil percentageOrdered B y: Miguel Rosenberg on 03-18-2023 Basophils/100 WBC (Bld) 1.0 % 0-1 [facility] Chloride [Moles/Vol] 112 mmol/L 98-107 [facility] Eosinophils/100 WBC (Bld) 1.8 % 0-5 [facility] Glucose [Mass/Vol] 83 mg/dL 74-106 [facility] Neutrophils (Bld) [#/Vol] 4.8 10*3/uL 2.0-7.7 [facility] Neutrophils/100 WBC (Bld) 59.0 % 47-70 [facility] Potassium [Moles/Vol] 4.2 mmol/L 3.5-5.1 [facility] Sodium [Moles/Vol] 141 mmol/L 136-145 [facility] WBC (Bld) [#/Vol] 8.2 10*3/uL 4.4-11.0 [facility] Blood erythrocytes count (nu mber/volume)Ordered By: Miguel Rosenberg on 03-18-2023 RBC (Bld) [#/Vol] 4.29 10*6/uL 4.2-5.4 [facility] Blood hemoglobin measurement (mass/volume)Ordered By: Miguel Rosenberg on 03-18-2023 Hemoglobin (Bld) [Mass/Vol] 13.3 g/dL 12.0-15.0 [facility] Blood lymphocytes/100 leukoc ytesOrdered By: Miguel Rosenberg on 03-18-2023 Lymphocytes/100 WBC (Bld) 27.7 % 19-41 [facility] Blood monocytes/100 leukocyt esOrdered By: Miguel Rosenberg on 03-18-2023 Monocytes/100 WBC (Bld) 10.3 % 0-10 [facility] Blood platelet mean volumeOr dered By: Miguel Rosenberg on 03-18-2023 Platelet mean volume (Bld) [Entitic vol] 11.2 fL 6.2-12.0 [facility] Determination of erythrocyte mean corpuscular volume (MCV)Ordered By: Miguel Rosenberg on 03-18-2023 MCV (RBC) [Entitic vol] 95.8 fL 81-99 [facility] Hematocrit Auto (Bld) [Volum e fraction]Ordered By: Miguel Rosenberg on 03-18-2023 Hematocrit (Bld) [Volume fraction] 41.1 % 37-47 [facility] Laboratory - Chemistry and C hemistry - challengeOrdered By: Miguel Rosenberg on 03-18-2023 CO2 [Moles/Vol] 23.0 mmol/L 21.0-32.0 [facility] Urea nitrogen/Creatinine [Mass ratio] 27.5 mg/mg 10-20 [facility] - Hematology and Cell countsOrdered By: Miguel Rosenberg on 03-18-2023 Erythrocyte distribution width (RBC) [Entitic vol] 47.1 fL 35.1-43.9 [facility] Erythrocyte distribution width (RBC) [Ratio] 13.3 % 11.6-14.6 [facility] Immature granulocytes/100 WBC (Bld) 0.200 % 0.0-0.9 [facility] Comment on above: IG% - Immature Granu locytes (promyelocytes, myelocytes and metamyelocytes) > 1% indicates that a LEFT SHIFT is Present. MCH (RBC) [Entitic mass] 31.0 pg 27.0-32.0 [facility] Nucleated RBC/100 WBC (Bld) [Ratio] 0 % 0-5 [facility] MCHC Auto (RBC) [Mass/Vol]Or dered By: Miguel Rosenberg on 03-18-2023 MCHC (RBC) [Mass/Vol] 32.4 g/dL 32-36 [facility] No Panel InformationOrdered By: Miguel Rosenberg on 03-18-2023 Estimated GFR (MDRD) Amer 114 mL/min >60 [facility] Comment on above: GFR Calc Estimated GFR (MDRD) Non-Af Amer 94 mL/min >60 [facility] Comment on above: Non- GFR Calc Platelets bldOrdered By: Salvador Rosenberg on 03-18-2023 Platelets (Bld) [#/Vol] 248 10*3/uL 150-450 [facility] Serum or plasma calcium cony urement (mass/volume)Ordered By: Miguel Rosenberg on 03-18-2023 Calcium [Mass/Vol] 9.1 mg/dL 8.5-10.1 [facility] Serum or plasma creatinine m easurement (mass/volume)Ordered By: Miguel Rosenberg on 03-18-2023 Creatinine [Mass/Vol] 0.66 mg/dL 0.55-1.02 [facility] Comment on above: The validity of the calculated GFR & GFRAA in patients over 70 years has not been determined. Clinical correlation is essential. Serum or plasma urea nitroge n measurement (mass/volume)Ordered By: Miguel Rosenberg on 03-18-2023 Urea nitrogen [Mass/Vol] 18 mg/dL 7-18 [facility] Thin prep Papanicolaou smear with manual screeningOrdered By: Miguel Rosenberg on 03-18-2023 Thin prep Papanicolaou smear with manual screening 6 5-15 [facility] Bilirubin Test strip Ql (U)O rdered By: Miguel Rosenberg on 02-25-2023 Bilirubin Ql (U) Negative Negative [facility] Culture, urineOrdered By: Malina Rosenberg on 02-25-2023 Bacteria identified Cx Nom (U) Presumptive E. coli [facility] Ketones Test strip Ql (U)Ord ered By: Miguel Rosenberg on 02-25-2023 Ketones Ql (U) 5 mg/dl Negative [facility] Nitrite Test strip Ql (U)Ord ered By: Miguel Rosenberg on 02-25-2023 Nitrite Ql (U) Positive Negative [facility] Protein Test strip Ql (U)Ord ered By: iMguel Rosenberg on 02-25-2023 Protein Ql (U) 15 mg/dl Negative [facility] Urine blood detectionOrdered By: Miguel Rosenberg on 02-25-2023 RBC Ql (U) 10 /ul Negative [facility] Urine clarityOrdered By: Salvador Rosenberg on 02-25-2023 Clarity (U) Sl. Cloudy Clear [facility] Urine color determinationOrd ered By: Miguel Rosenberg on 02-25-2023 Color (U) Yellow Yellow [facility] Urine glucose detectionOrder ed By: Miguel Rosenberg on 02-25-2023 Glucose Ql (U) Normal mg/dl Normal [facility] Urine leukocyte esterase det ection by dipstickOrdered By: Miguel Rosenberg on 02-25-2023 Leukocyte esterase Test strip Ql (U) 100 /ul Negative [facility] Urine pHOrdered By: Miguel interiano on 02-25-2023 pH (U) 6.0 [pH] 5.0 - 8.0 [facility] Urine specific gravity measu rementOrdered By: Miguel Rosenberg on 02-25-2023 Specific gravity (U) [Rel density] 1.025 1.002-1.030 [facility] Urobilinogen Auto test strip Ql (U)Ordered By: Miguel Rosenberg on 02-25-2023 Urobilinogen Ql (U) Normal mg/dl Normal [facility] Basophil percentageOrdered B y: Miguel Rosenberg on 02-14-2023 Chloride [Moles/Vol] 113 mmol/L 98-107 [facility] Glucose [Mass/Vol] 80 mg/dL 74-106 [facility] Potassium [Moles/Vol] 4.0 mmol/L 3.5-5.1 [facility] Sodium [Moles/Vol] 144 mmol/L 136-145 [facility] WBC (Bld) [#/Vol] 4.7 10*3/uL 4.4-11.0 [facility] Blood erythrocytes count (nu mber/volume)Ordered By: Miguel Rosenberg on 05-04-2023 RBC (Bld) [#/Vol] 4.08 10*6/uL 4.2-5.4 [facility] Blood hemoglobin measurement (mass/volume)Ordered By: Miguel Rosenberg on 02-14-2023 Hemoglobin (Bld) [Mass/Vol] 12.9 g/dL 12.0-15.0 [facility] Blood platelet mean volumeOr dered By: Miguel Rosenberg on 02-14-2023 Platelet mean volume (Bld) [Entitic vol] 11.9 fL 6.2-12.0 [facility] Determination of erythrocyte mean corpuscular volume (MCV)Ordered By: Miguel Rosenberg on 02-14-2023 MCV (RBC) [Entitic vol] 98.5 fL 81-99 [facility] Hematocrit Auto (Bld) [Volum e fraction]Ordered By: Miguel Rosenberg on 02-14-2023 Hematocrit (Bld) [Volume fraction] 40.2 % 37-47 [facility] Laboratory - Chemistry and C hemistry - challengeOrdered By: Miguel Rosenberg on 02-14-2023 CO2 [Moles/Vol] 23.0 mmol/L 21.0-32.0 [facility] Urea nitrogen/Creatinine [Mass ratio] 30.8 mg/mg 10-20 [facility] Laboratory - Hematology and Cell countsOrdered By: Miguel Rosenberg on 02-14-2023 Erythrocyte distribution width (RBC) [Entitic vol] 50.0 fL 35.1-43.9 [facility] Erythrocyte distribution width (RBC) [Ratio] 13.8 % 11.6-14.6 [facility] MCH (RBC) [Entitic mass] 31.6 pg 27.0-32.0 [facility] MCHC Auto (RBC) [Mass/Vol]Or dered By: Miguel Rosenberg on 02-14-2023 MCHC (RBC) [Mass/Vol] 32.1 g/dL 32-36 [facility] No Panel InformationOrdered By: Miguel Rosenberg on 02-14-2023 Estimated GFR (MDRD) Amer 130 mL/min >60 [facility] Comment on above: GFR Calc Estimated GFR (MDRD) Non-Af Amer 108 mL/min >60 [facility] Comment on above: Non- GFR Calc Platelets bldOrdered By: Salvador Rosenberg on 02-14-2023 Platelets (Bld) [#/Vol] 199 10*3/uL 150-450 [facility] Serum or plasma calcium cony urement (mass/volume)Ordered By: Miguel Rosenberg on 02-14-2023 Calcium [Mass/Vol] 9.5 mg/dL 8.5-10.1 [facility] Serum or plasma creatinine m easurement (mass/volume)Ordered By: Miguel Rosenberg on 02-14-2023 Creatinine [Mass/Vol] 0.58 mg/dL 0.55-1.02 [facility] Comment on above: The validity of the calculated GFR & GFRAA in patients over 70 years has not been determined. Clinical correlation is essential. Serum or plasma urea nitroge n measurement (mass/volume)Ordered By: Miguel Rosenberg on 02-14-2023 Urea nitrogen [Mass/Vol] 18 mg/dL 7-18 [facility] Thin prep Papanicolaou smear with manual screeningOrdered By: Miguel Rosenberg on 02-14-2023 Thin prep Papanicolaou smear with manual screening 8 5-15 [facility] Absolute lymphocyte countOrd ered By: Dr. Bates on 01-23-2023 Lymphocytes Auto (Unsp spec) [#/Vol] 1.93 10*3/uL 0.83-4.51 [facility] Basophil percentageOrdered B y: Dr. Bates on 01-23-2023 Basophils/100 WBC (Bld) 1.4 % 0-1 [facility] Chloride [Moles/Vol] 112 mmol/L 98-107 [facility] Eosinophils/100 WBC (Bld) 2.3 % 0-5 [facility] Glucose [Mass/Vol] 84 mg/dL 74-106 [facility] Neutrophils (Bld) [#/Vol] 2.7 10*3/uL 2.0-7.7 [facility] Neutrophils/100 WBC (Bld) 48.9 % 47-70 [facility] Potassium [Moles/Vol] 4.2 mmol/L 3.5-5.1 [facility] Comment on above: Slight Hemolysis, Re sult may be falsely increased. Sodium [Moles/Vol] 140 mmol/L 136-145 [facility] WBC (Bld) [#/Vol] 5.6 10*3/uL 4.4-11.0 [facility] Blood erythrocytes count (nu mber/volume)Ordered By: Dr. Bates on 01-23-2023 RBC (Bld) [#/Vol] 3.70 10*6/uL 4.2-5.4 [facility] Blood hemoglobin measurement (mass/volume)Ordered By: Dr. Bates on 01-23-2023 Hemoglobin (Bld) [Mass/Vol] 11.9 g/dL 12.0-15.0 [facility] Blood lymphocytes/100 leukoc ytesOrdered By: Dr. Bates on 01-23-2023 Lymphocytes/100 WBC (Bld) 34.5 % 19-41 [facility] Blood monocytes/100 leukocyt esOrdered By: Dr. Bates on 01-23-2023 Monocytes/100 WBC (Bld) 12.5 % 0-10 [facility] Blood platelet mean volumeOr dered By: Dr. Bates on 01-23-2023 Platelet mean volume (Bld) [Entitic vol] 11.8 fL 6.2-12.0 [facility] Determination of erythrocyte mean corpuscular volume (MCV)Ordered By: Dr. Bates on 01-23-2023 MCV (RBC) [Entitic vol] 101.1 fL 81-99 [facility] Hematocrit Auto (Bld) [Volum e fraction]Ordered By: Dr. Bates on 01-23-2023 Hematocrit (Bld) [Volume fraction] 37.4 % 37-47 [facility] [facility] - Chemistry and C hemistry - challengeOrdered By: Dr. Bates on 01-23-2023 CO2 [Moles/Vol] 23.0 mmol/L 21.0-32.0 [facility] Urea nitrogen/Creatinine [Mass ratio] 25.9 mg/mg 10-20 [facility] Laboratory - Hematology and Cell countsOrdered By: Dr. Bates on 01-23-2023 Erythrocyte distribution width (RBC) [Entitic vol] 51.0 fL 35.1-43.9 [facility] Erythrocyte distribution width (RBC) [Ratio] 13.8 % 11.6-14.6 [facility] Immature granulocytes/100 WBC (Bld) 0.400 % 0.0-0.9 [facility] Comment on above: IG% - Immature Granu locytes (promyelocytes, myelocytes and metamyelocytes) > 1% indicates that a LEFT SHIFT is Present. MCH (RBC) [Entitic mass] 32.2 pg 27.0-32.0 [facility] Nucleated RBC/100 WBC (Bld) [Ratio] 0 % 0-5 [facility] MCHC Auto (RBC) [Mass/Vol]Or dered By: Dr. Bates on 01-23-2023 MCHC (RBC) [Mass/Vol] 31.8 g/dL 32-36 [facility] No Panel InformationOrdered By: Dr. Bates on 01-23-2023 Estimated GFR (MDRD) Amer 132 mL/min >60 [facility] Comment on above: GFR Calc Estimated GFR (MDRD) Non-Af Amer 109 mL/min >60 [facility] Comment on above: Non- GFR Calc Platelets bldOrdered By: Dr. Bates on 01-23-2023 Platelets (Bld) [#/Vol] 187 10*3/uL 150-450 [facility] Serum or plasma calcium cony urement (mass/volume)Ordered By: Dr. Bates on 01-23-2023 Calcium [Mass/Vol] 9.5 mg/dL 8.5-10.1 [facility] Serum or plasma creatinine m easurement (mass/volume)Ordered By: Dr. Bates on 01-23-2023 Creatinine [Mass/Vol] 0.58 mg/dL 0.55-1.02 [facility] Comment on above: The validity of the calculated GFR & GFRAA in patients over 70 years has not been determined. Clinical correlation is essential. Serum or plasma urea nitroge n measurement (mass/volume)Ordered By: Dr. Bates on 01-23-2023 Urea nitrogen [Mass/Vol] 15 mg/dL 7-18 [facility] Thin prep Papanicolaou smear with manual screeningOrdered By: Dr. Bates on 01-23-2023 Thin prep Papanicolaou smear with manual screening 5 5-15 [facility] Absolute lymphocyte countOrd ered By: Dr. Bates on 01-16-2023 Lymphocytes Auto (Unsp spec) [#/Vol] 1.59 10*3/uL 0.83-4.51 [facility] Basophil percentageOrdered B y: Dr. Bates on 01-16-2023 Basophils/100 WBC (Bld) 1.5 % 0-1 [facility] Chloride [Moles/Vol] 110 mmol/L 98-107 [facility] Eosinophils/100 WBC (Bld) 2.2 % 0-5 [facility] Glucose [Mass/Vol] 92 mg/dL 74-106 [facility] Neutrophils (Bld) [#/Vol] 2.3 10*3/uL 2.0-7.7 [facility] Neutrophils/100 WBC (Bld) 49.9 % 47-70 [facility] Potassium [Moles/Vol] 3.5 mmol/L 3.5-5.1 [facility] Sodium [Moles/Vol] 140 mmol/L 136-145 [facility] WBC (Bld) [#/Vol] 4.7 10*3/uL 4.4-11.0 [facility] Blood erythrocytes count (nu mber/volume)Ordered By: Dr. Bates on 01-16-2023 RBC (Bld) [#/Vol] 3.72 10*6/uL 4.2-5.4 [facility] Blood hemoglobin measurement (mass/volume)Ordered By: Dr. Bates on 01-16-2023 Hemoglobin (Bld) [Mass/Vol] 11.9 g/dL 12.0-15.0 [facility] Blood lymphocytes/100 leukoc ytesOrdered By: Dr. Bates on 01-16-2023 Lymphocytes/100 WBC (Bld) 34.2 % 19-41 [facility] Blood monocytes/100 leukocyt esOrdered By: Dr. Bates on 01-16-2023 Monocytes/100 WBC (Bld) 11.8 % 0-10 [facility] Blood platelet mean volumeOr dered By: Dr. Bates on 01-16-2023 Platelet mean volume (Bld) [Entitic vol] 11.6 fL 6.2-12.0 [facility] Determination of erythrocyte mean corpuscular volume (MCV)Ordered By: Dr. Bates on 01-16-2023 MCV (RBC) [Entitic vol] 103.0 fL 81-99 [facility] Hematocrit Auto (Bld) [Volum e fraction]Ordered By: Dr. Bates on 01-16-2023 Hematocrit (Bld) [Volume fraction] 38.3 % 37-47 [facility] Laboratory - Chemistry and C hemistry - challengeOrdered By: Dr. Bates on 01-16-2023 CO2 [Moles/Vol] 24.0 mmol/L 21.0-32.0 [facility] Urea nitrogen/Creatinine [Mass ratio] 25.4 mg/mg 10-20 [facility] Laboratory - Hematology and Cell countsOrdered By: Dr. Bates on 01-16-2023 Erythrocyte distribution width (RBC) [Entitic vol] 52.4 fL 35.1-43.9 [facility] Erythrocyte distribution width (RBC) [Ratio] 13.8 % 11.6-14.6 [facility] Immature granulocytes/100 WBC (Bld) 0.400 % 0.0-0.9 [facility] Comment on above: IG% - Immature Granu locytes (promyelocytes, myelocytes and metamyelocytes) > 1% indicates that a LEFT SHIFT is Present. MCH (RBC) [Entitic mass] 32.0 pg 27.0-32.0 [facility] Nucleated RBC/100 WBC (Bld) [Ratio] 0 % 0-5 [facility] MCHC Auto (RBC) [Mass/Vol]Or dered By: Dr. Bates on 01-16-2023 MCHC (RBC) [Mass/Vol] 31.1 g/dL 32-36 [facility] No Panel InformationOrdered By: Dr. Bates on 01-16-2023 Estimated GFR (MDRD) Amer 129 mL/min >60 [facility] Comment on above: GFR Calc Estimated GFR (MDRD) Non-Af Amer 106 mL/min >60 [facility] Comment on above: Non- GFR Calc Platelets bldOrdered By: Dr. Bates on 01-16-2023 Platelets (Bld) [#/Vol] 192 10*3/uL 150-450 [facility] Serum or plasma calcium cony urement (mass/volume)Ordered By: Dr. Bates on 01-16-2023 Calcium [Mass/Vol] 9.5 mg/dL 8.5-10.1 [facility] Serum or plasma creatinine m easurement (mass/volume)Ordered By: Dr. Bates on 01-16-2023 Creatinine [Mass/Vol] 0.59 mg/dL 0.55-1.02 [facility] Comment on above: The validity of the calculated GFR & GFRAA in patients over 70 years has not been determined. Clinical correlation is essential. Serum or plasma urea nitroge n measurement (mass/volume)Ordered By: Dr. Bates on 01-16-2023 Urea nitrogen [Mass/Vol] 15 mg/dL 7-18 [facility] Thin prep Papanicolaou smear with manual screeningOrdered By: Dr. Bates on 01-16-2023 Thin prep Papanicolaou smear with manual screening 6 5-15 [facility] Absolute lymphocyte countOrd ered By: Dr. Bates on 01-10-2023 Lymphocytes Auto (Unsp spec) [#/Vol] 1.81 10*3/uL 0.83-4.51 [facility] Basophil percentageOrdered B y: Dr. Bates on 01-10-2023 Basophils/100 WBC (Bld) 1.3 % 0-1 [facility] Chloride [Moles/Vol] 111 mmol/L 98-107 [facility] Eosinophils/100 WBC (Bld) 4.0 % 0-5 [facility] Glucose [Mass/Vol] 95 mg/dL 74-106 [facility] Neutrophils (Bld) [#/Vol] 2.7 10*3/uL 2.0-7.7 [facility] Neutrophils/100 WBC (Bld) 49.4 % 47-70 [facility] Potassium [Moles/Vol] 3.7 mmol/L 3.5-5.1 [facility] Comment on above: Slight Hemolysis, Re sult may be falsely increased. Sodium [Moles/Vol] 142 mmol/L 136-145 [facility] WBC (Bld) [#/Vol] 5.4 10*3/uL 4.4-11.0 [facility] Blood erythrocytes count (nu mber/volume)Ordered By: Dr. Bates on 01-10-2023 RBC (Bld) [#/Vol] 3.85 10*6/uL 4.2-5.4 [facility] Blood hemoglobin measurement (mass/volume)Ordered By: Dr. Bates on 01-10-2023 Hemoglobin (Bld) [Mass/Vol] 12.5 g/dL 12.0-15.0 [facility] Blood lymphocytes/100 leukoc ytesOrdered By: Dr. Bates on 01-10-2023 Lymphocytes/100 WBC (Bld) 33.3 % 19-41 [facility] Blood monocytes/100 leukocyt esOrdered By: Dr. Bates on 01-10-2023 Monocytes/100 WBC (Bld) 11.6 % 0-10 [facility] Blood platelet mean volumeOr dered By: Dr. Bates on 01-10-2023 Platelet mean volume (Bld) [Entitic vol] 11.4 fL 6.2-12.0 [facility] Determination of erythrocyte mean corpuscular volume (MCV)Ordered By: Dr. Bates on 01-10-2023 MCV (RBC) [Entitic vol] 102.9 fL 81-99 [facility] Hematocrit Auto (Bld) [Volum e fraction]Ordered By: Dr. Bates on 01-10-2023 Hematocrit (Bld) [Volume fraction] 39.6 % 37-47 [facility] Laboratory - Chemistry and C hemistry - challengeOrdered By: Dr. Bates on 01-10-2023 CO2 [Moles/Vol] 24.0 mmol/L 21.0-32.0 [facility] Cobalamin (Vitamin B12) [Mass/Vol] 815 pg/mL 211-911 [facility] Magnesium [Mass/Vol] 1.8 mg/dL 1.6-2.6 [facility] Comment on above: Slight Hemolysis, Re sult may be falsely increased. Urea nitrogen/Creatinine [Mass ratio] 28.7 mg/mg 10-20 [facility] Laboratory - Hematology and Cell countsOrdered By: Dr. Bates on 03-30-2023 Erythrocyte distribution width (RBC) [Entitic vol] 55.5 fL 35.1-43.9 [facility] Erythrocyte distribution width (RBC) [Ratio] 14.5 % 11.6-14.6 [facility] Immature granulocytes/100 WBC (Bld) 0.400 % 0.0-0.9 [facility] Comment on above: IG% - Immature Granu locytes (promyelocytes, myelocytes and metamyelocytes) > 1% indicates that a LEFT SHIFT is Present. MCH (RBC) [Entitic mass] 32.5 pg 27.0-32.0 [facility] Nucleated RBC/100 WBC (Bld) [Ratio] 0 % 0-5 [facility] MCHC Auto (RBC) [Mass/Vol]Or dered By: Dr. Bates on 01-10-2023 MCHC (RBC) [Mass/Vol] 31.6 g/dL 32-36 [facility] No Panel InformationOrdered By: Dr. Bates on 01-10-2023 Estimated GFR (MDRD) Amer 101 mL/min >60 [facility] Comment on above: GFR Calc Estimated GFR (MDRD) Non-Af Amer 83 mL/min >60 [facility] Comment on above: Non- GFR Calc Thyroid Stimulating Hormone (TSH) 4.12 uIU/mL 0.358-3.74 [facility] Vitamin D 25-Hydroxy 40.4 ng/mL [facility] Comment on above: Vitamin D 25(OH) Sta tus Range Deficiency <20 ng/mL (50nmol/L) Insufficiency 20 - 30 ng/mL (50 - 75 nmol/L) Sufficiency 30 - 100 ng/mL (75 - 250 nmol/L) Toxicity >100 ng/mL (>250 nmol/L) Platelets bldOrdered By: Dr. Bates on 01-10-2023 Platelets (Bld) [#/Vol] 200 10*3/uL 150-450 [facility] Serum or plasma calcium cony urement (mass/volume)Ordered By: Dr. Bates on 01-10-2023 Calcium [Mass/Vol] 10.0 mg/dL 8.5-10.1 [facility] Serum or plasma creatinine m easurement (mass/volume)Ordered By: Dr. Bates on 01-10-2023 Creatinine [Mass/Vol] 0.73 mg/dL 0.55-1.02 [facility] Comment on above: The validity of the calculated GFR & GFRAA in patients over 70 years has not been determined. Clinical correlation is essential. Serum or plasma urea nitroge n measurement (mass/volume)Ordered By: Dr. Bates on 01-10-2023 Urea nitrogen [Mass/Vol] 21 mg/dL 7-18 [facility] Thin prep Papanicolaou smear with manual screeningOrdered By: Dr. Bates on 01-10-2023 Thin prep Papanicolaou smear with manual screening 7 5-15 [facility] CASE MANAGEMon 01-09-2023 CASE MANAGEM Normal [facility] CASE MANAGEM Normal [facility] CASE MANAGEM Normal [facility] CNDSon 01-09-2023 CNDS Normal [facility] NURSING PROGon 01-09-2023 NURSING PROG Normal [facility] SARS-CoV-2 RNA Resp Ql CY+p robeon 01-09-2023 SARS-CoV-2 (COVID-19) RNA CY+probe Ql (Resp) COVID 19 RESULT: Not detected The method used is RT-PCR or an equivalent NAAT method. Reference Range(the expected result in uninfected individuals): Not detected Normal [facility] Comment on above: Performed By: #### 9 4500-6 ####[facility] LABORATORYCLIA [id number] [address] [facility] CASE MANAGEMon 01-08-2023 CASE MANAGEM Normal [facility] NUTRITIONon 01-08-2023 NUTRITION Normal [facility] THERAPY NTon 01-08-2023 THERAPY NT Normal [facility] THERAPY NT Normal [facility] THERAPY NT Normal [facility] CASE MANAGEMon 01-07-2023 CASE MANAGEM Normal [facility] CONSULT PROGon 01-07-2023 CONSULT PROG Normal [facility] NURSING PROGon 01-06-2023 NURSING PROG Normal [facility] NURSING PROGon 01-05-2023 NURSING PROG Normal [facility] NURSING PROG Normal [facility] CASE MANAGEMon 01-04-2023 CASE MANAGEM Normal [facility] CASE MANAGEM Normal [facility] CBC W Auto Differential pane l (Bld)on 01-04-2023 Basophils (Bld) [#/Vol] 0.09 10*3/uL Normal <0.11 [facility] Comment on above: Order Comment: Speci men Type: BLOOD SPECIMENOrdering Facility: [facility] Address: [address] [place] [address] Performed By: #### 5 7021-8 ####[facility]ORATORYCLIA [id number] [address] [place] Basophils/100 WBC (Bld) 1.5 % Normal [facility] Comment on above: Order Comment: Speci men Type: BLOOD SPECIMENOrdering Facility: [facility] Address: [address] [place] [address] Performed By: #### 5 7021-8 ####[facility]ORATORYCLIA [id number] [address] [place] Differential cell count method Nom (Bld) Auto Normal [facility] Comment on above: Order Comment: Speci men Type: BLOOD SPECIMENOrdering Facility: [facility] Address: [address] [place] [address] Performed By: #### 5 7021-8 ####[facility]ORATORYCLIA [id number] [place] [address] [place] Eosinophils (Bld) [#/Vol] 0.17 10*3/uL Normal <0.46 [facility] Comment on above: Order Comment: Speci men Type: BLOOD SPECIMENOrdering Facility: [facility] Address: [address] [place] [address] Performed By: #### 5 7021-8 ####[facility]ORATORYCLIA [id number] [address] [place] Eosinophils/100 WBC (Bld) 2.8 % Normal [facility] Comment on above: Order Comment: Speci men Type: BLOOD SPECIMENOrdering Facility: [facility] Address: [address] [address] Performed By: #### 5 7021-8 ####[facility] LABORATORYCLIA [id number] [address] Erythrocyte distribution width (RBC) [Ratio] 14.5 % Normal 11.5-15.0 [facility] Comment on above: Order Comment: Speci men Type: BLOOD SPECIMENOrdering Facility: [facility] Address: [address] [address] Performed By: #### 5 7021-8 ####[facility] LABORATORYCLIA [id number] [address] [place] Hematocrit (Bld) [Volume fraction] 32.0 % Low 36.0-46.0 [facility] Comment on above: Order Comment: Speci men Type: BLOOD SPECIMENOrdering Facility: [facility] Address: [address] [place] [address] Performed By: #### 5 7021-8 ####[facility] LABORATORYCLIA [id number] [address] [place] Hemoglobin (Bld) [Mass/Vol] 10.5 g/dL Low 11.5-15.5 [facility] Comment on above: Order Comment: Speci men Type: BLOOD SPECIMENOrdering Facility: [facility] Address: [address] [place] [address] Performed By: #### 5 7021-8 ####[facility] LABORATORYCLIA [id number] [address] [place] Immature granulocytes (Bld) [#/Vol] 10*3/uL Normal <0.10 [facility] Comment on above: Order Comment: Speci men Type: BLOOD SPECIMENOrdering Facility: [facility] Address: [address] [place] [address] Performed By: #### 5 7021-8 ####[facility] LABORATORYCLIA [id number] [address] [place] Immature granulocytes/100 WBC (Bld) 0.3 % Normal [facility] Comment on above: Order Comment: Speci men Type: BLOOD SPECIMENOrdering Facility: [facility] Address: [address] [place] [address] Performed By: #### 5 7021-8 ####[facility] LABORATORYCLIA [id number] [address] [place] Lymphocytes (Bld) [#/Vol] 1.35 10*3/uL Normal 1.00-4.00 [facility] Comment on above: Order Comment: Speci men Type: BLOOD SPECIMENOrdering Facility: [facility] Address: [address] [place] [address] Performed By: #### 5 7021-8 ####[facility] LABORATORYCLIA [id number] [address] Lymphocytes/100 WBC (Bld) 22.6 % Normal [facility] Comment on above: Order Comment: Speci men Type: BLOOD SPECIMENOrdering Facility: [facility] Address: [address] [place] [address] Performed By: #### 5 7021-8 ####[facility] LABORATORYCLIA [id number] [address] [place] MCH (RBC) [Entitic mass] 32.7 pg Normal 26.0-34.0 [facility] Comment on above: Order Comment: Speci men Type: BLOOD SPECIMENOrdering Facility: [facility] Address: [address] [place] [address] Performed By: #### 5 7021-8 ####[facility]ORATORYCLIA [id number] [address] [place] MCHC (RBC) [Mass/Vol] 32.8 g/dL Normal 30.5-36.0 [facility] Comment on above: Order Comment: Speci men Type: BLOOD SPECIMENOrdering Facility: [facility] Address: [address] [place] [address] Performed By: #### 5 7021-8 ####[facility]ATORYCLIA [id number] [address] [place] MCV (RBC) [Entitic vol] 99.7 fL Normal 80.0-100.0 [facility] Comment on above: Order Comment: Speci men Type: BLOOD SPECIMENOrdering Facility: [facility] Address: [address] [place] [address] Performed By: #### 5 7021-8 ####[facility] LABORATORYCLIA [id number] [place] [address] [place] Monocytes (Bld) [#/Vol] 0.68 10*3/uL Normal <0.87 [facility] Comment on above: Order Comment: Speci men Type: BLOOD SPECIMENOrdering Facility: [facility] Address: [address] [place] [address] Performed By: #### 5 7021-8 ####[facility]ORATORYCLIA [id number] [address] Monocytes/100 WBC (Bld) 11.4 % Normal [facility] Comment on above: Order Comment: Speci men Type: BLOOD SPECIMENOrdering Facility: [facility] Address: [address] [place] [address] Performed By: #### 5 7021-8 ####[facility]ORATORYCLIA [id number] [address] [place] Neutrophils (Bld) [#/Vol] 3.67 10*3/uL Normal 1.45-7.50 [facility] Comment on above: Order Comment: Speci men Type: BLOOD SPECIMENOrdering Facility: [facility] Address: [address] [place] [address] Performed By: #### 5 7021-8 ####[facility]ORATORYCLIA [id number] [address] [place] Neutrophils/100 WBC (Bld) 61.4 % Normal [facility] Comment on above: Order Comment: Speci men Type: BLOOD SPECIMENOrdering Facility: [facility] Address: [address] [place] [address] Performed By: #### 5 7021-8 ####[facility]ATORYCLIA [id number] [address] Nucleated RBC (Bld) [#/Vol] 10*3/uL Normal <0.01 [facility] Comment on above: Order Comment: Speci men Type: BLOOD SPECIMENOrdering Facility: [facility] Address: [address] [place] [address] Performed By: #### 5 7021-8 ####[facility]ORATORYCLIA [id number] [address] [facility] Nucleated RBC/100 WBC (Bld) [Ratio] 0.0 /100 WBC Normal [facility] Comment on above: Order Comment: Speci men Type: BLOOD SPECIMENOrdering Facility: [facility] Address: [address] [place] [address] Performed By: #### 5 7021-8 ####[facility]ORATORYCLIA [id number] [address] [place] Platelet mean volume (Bld) [Entitic vol] 11.0 fL Normal 9.0-12.7 [facility] Comment on above: Order Comment: Speci men Type: BLOOD SPECIMENOrdering Facility: [facility] Address: [address] [place] [address] Performed By: #### 5 7021-8 ####[facility]ORATORYCLIA [id number] [address] [place] Platelets (Bld) [#/Vol] 218 10*3/uL Normal 150-400 [facility] Comment on above: Order Comment: Speci men Type: BLOOD SPECIMENOrdering Facility: [facility] Address: [address] [place] [address] Performed By: #### 5 7021-8 ####[facility]ORATORYCLIA [id number] [address] [place] RBC (Bld) [#/Vol] 3.21 10*6/uL Low 3.90-5.20 [facility] Comment on above: Order Comment: Speci men Type: BLOOD SPECIMENOrdering Facility: [facility] Address: [address] [place] [address] Performed By: #### 5 7021-8 ####[facility]ORATORYCLIA [id number] [address] [place] [facility] WBC (Bld) [#/Vol] 5.98 10*3/uL Normal 3.70-11.00 [facility] Comment on above: Order Comment: Speci men Type: BLOOD SPECIMENOrdering Facility: [facility] Address: [address] [place] [address] Performed By: #### 5 7021-8 ####[facility]ORATORYCLIA [id number] [address] [facility] CONSULT PROGon 01-04-2023 CONSULT PROG Normal [facility] Comprehensive metabolic 2000 panelon 01-04-2023 Albumin [Mass/Vol] 3.2 g/dL Low 3.9-4.9 [facility] Comment on above: Order Comment: Speci men Type: BLOOD SPECIMENOrdering Facility: [facility] Address: [address] [place] [address] Performed By: #### 2 4323-8 ####[facility]ORATORYCLIA [id number] [address] [place] ALP [Catalytic activity/Vol] 97 U/L Normal 34-123 [facility] Comment on above: Order Comment: Speci men Type: BLOOD SPECIMENOrdering Facility: [facility] Address: [address] [place] [address] Performed By: #### 2 4323-8 ####[facility]ORATORYCLIA [id number] [address] [place] ALT With P-5'-P [Catalytic activity/Vol] 15 U/L Normal 7-38 [facility] Comment on above: Order Comment: Speci men Type: BLOOD SPECIMENOrdering Facility: [facility] Address: [address] [place] [address] Performed By: #### 2 4323-8 ####[facility]ATORYCLIA [id number] [place] [address] [place] Anion gap [Moles/Vol] 12 mmol/L Normal 9-18 [facility] Comment on above: Order Comment: Speci men Type: BLOOD SPECIMENOrdering Facility: [facility] Address: [address] [place] [address] Performed By: #### 2 4323-8 ####[facility]ORATORYCLIA [id number] [place] [address] [place] AST With P-5'-P [Catalytic activity/Vol] 33 U/L Normal 13-35 [facility] Comment on above: Order Comment: Speci men Type: BLOOD SPECIMENOrdering Facility: [facility] Address: [address] [place] [address] Performed By: #### 2 4323-8 ####[facility]ORATORYCLIA [id number] [place] [address] [place] Bilirubin [Mass/Vol] 0.2 mg/dL Normal 0.2-1.3 [facility] Comment on above: Order Comment: Speci men Type: BLOOD SPECIMENOrdering Facility: [facility] Address: [address] [place] [address] Performed By: #### 2 4323-8 ####[facility] LABORATORYCLIA [id number] [address] [place] Calcium [Mass/Vol] 9.8 mg/dL Normal 8.5-10.2 [facility] Comment on above: Order Comment: Speci men Type: BLOOD SPECIMENOrdering Facility: [facility] Address: [address] [place], [place] [address] Performed By: #### 2 4323-8 ####[facility] LABORATORYCLIA [id number] [place] [address] [place] Chloride [Moles/Vol] 104 mmol/L Normal 97-105 [facility] Comment on above: Order Comment: Speci men Type: BLOOD SPECIMENOrdering Facility: [facility] Address: [address] [place] [address] Performed By: #### 2 4323-8 ####[facility] LABORATORYCLIA [id number] [address] CO2 [Moles/Vol] 21 mmol/L Low 22-30 [facility] Comment on above: Order Comment: Speci men Type: BLOOD SPECIMENOrdering Facility: [facility] Address: [address] [place] [address] Performed By: #### 2 4323-8 ####[facility] LABORATORYCLIA [id number] [address] [facility] Creatinine [Mass/Vol] 0.54 mg/dL Low 0.58-0.96 [facility] Comment on above: Order Comment: Speci men Type: BLOOD SPECIMENOrdering Facility: [facility] Address: [address] [place] [address] Performed By: #### 2 4323-8 ####[facility] LABORATORYCLIA [id number] [address] ESTIMATED GLOMERULAR FILTRATION RATE 99 mL/min/1.73m??? Normal >=60 [facility] Comment on above: Order Comment: Speci men Type: BLOOD SPECIMENOrdering Facility: [facility] Address: [address] [place] [address] Result Comment: Mariely mated Glomerular Filtration Rate [...] actual GFR. Performed By: #### 2 4323-8 ####[facility] LABORATORYCLIA [id number] [address] [facility] Glucose [Mass/Vol] 94 mg/dL Normal 74-99 [facility] Comment on above: Order Comment: Speci men Type: BLOOD SPECIMENOrdering Facility: [facility] Address: [address] [place] [address] Result Comment: The [place] [employer] (ADA) provides guidance for cutoff [...] Standards of Medical Care in Diabetes 2016, [place] [employer]. Diabetes Care. 2016.39(Suppl 1). Performed By: #### 2 4323-8 ####[facility] LABORATORYCLIA [id number] [place] [address] [place] Potassium [Moles/Vol] 4.1 mmol/L Normal 3.7-5.1 [facility] Comment on above: Order Comment: Speci men Type: BLOOD SPECIMENOrdering Facility: [facility] Address: [address] [place] [address] Performed By: #### 2 4323-8 ####[facility] LABORATORYCLIA [id number] [place] [address] [place] Protein [Mass/Vol] 6.6 g/dL Normal 6.3-8.0 [facility] Comment on above: Order Comment: Speci men Type: BLOOD SPECIMENOrdering Facility: [facility] Address: [address] [address] Performed By: #### 2 4323-8 ####[facility] LABORATORYCLIA [id number] [place] [address] [place] Sodium [Moles/Vol] 137 mmol/L Normal 136-144 [facility] Comment on above: Order Comment: Speci men Type: BLOOD SPECIMENOrdering Facility: [facility] Address: [address] [address] Performed By: #### 2 4323-8 ####[facility] LABORATORYCLIA [id number] [place] [address] [place] Urea nitrogen [Mass/Vol] 18 mg/dL Normal 7-21 [facility] Comment on above: Order Comment: Speci men Type: BLOOD SPECIMENOrdering Facility: [facility] Address: [address] [place] [address] Performed By: #### 2 4323-8 ####[facility] LABORATORYCLIA [id number] [place] [address] [place] NUTRITIONon 01-04-2023 NUTRITION Normal [facility] THERAPY NTon 01-04-2023 THERAPY NT Normal [facility] THERAPY NT Normal [facility] THERAPY NT Normal [facility] THERAPY NT Normal [facility] THERAPY NT Normal [facility] CONSULT PROGon 01-03-2023 CONSULT PROG Normal [facility] ALLIED HEALTHon 01-02-2023 ALLIED HEALTH Normal [facility] Basic metabolic 2000 panelon 01-02-2023 Anion gap [Moles/Vol] 11 mmol/L Normal 9-18 [facility] Comment on above: Order Comment: Speci men Type: BLOOD SPECIMENOrdering Facility: [facility] Address: [address] [place] [address] Performed By: #### 2 777-1, , ####[facility] LABORATORYCLIA [id number] [place] [address] [place] Calcium [Mass/Vol] 9.4 mg/dL Normal 8.5-10.2 [facility] Comment on above: Order Comment: Speci men Type: BLOOD SPECIMENOrdering Facility: [facility] Address: [address] [place] [address] Performed By: #### 2 777-1, , ####[facility] LABORATORYCLIA [id number] [place] [address] [place] Chloride [Moles/Vol] 103 mmol/L Normal 97-105 [facility] Comment on above: Order Comment: Speci men Type: BLOOD SPECIMENOrdering Facility: [facility] Address: [address] [place] [address] Performed By: #### 2 777-1, , ####[facility] SERVICESCLIA [id number] [address] CO2 [Moles/Vol] 23 mmol/L Normal 22-30 [facility] Comment on above: Order Comment: Speci men Type: BLOOD SPECIMENOrdering Facility: [facility] Address: [address] [place] [address] Performed By: #### 2 777-1, , ####[facility] [id number] [address] Creatinine [Mass/Vol] 0.45 mg/dL Low 0.58-0.96 [facility] Comment on above: Order Comment: Speci men Type: BLOOD SPECIMENOrdering Facility: [facility] Address: [address] [place] [address] Performed By: #### 2 777-1, , ####[facility]ITALIA [id number] [address] ESTIMATED GLOMERULAR FILTRATION RATE 103 mL/min/1.73m??? Normal >=60 [facility] Comment on above: Order Comment: Speci men Type: BLOOD SPECIMENOrdering Facility: [facility] Address: [address] [place] [address] Result Comment: Mariely mated Glomerular Filtration Rate [...] GFR. Performed By: #### 2 777-1, , ####[facility] LABORATORYCLIA [id number] [place] [address] [place] Glucose [Mass/Vol] 110 mg/dL High 74-99 [facility] Comment on above: Order Comment: Speci men Type: BLOOD SPECIMENOrdering Facility: [facility] Address: [address] [place] [address] Result Comment: The [place] [employer] Association (ADA) provides guidance for cutoff [...] Standards of Medical Care in Diabetes 2016, [place] [employer]. Diabetes Care. 2016.39(Suppl 1). Performed By: #### 2 777-1, , 89810-8 ####[facility] LABORATORYCLIA [id number] [place] [address] [place] Potassium [Moles/Vol] 4.3 mmol/L Normal 3.7-5.1 [facility] Comment on above: Order Comment: Rejii tai Type: BLOOD SPECIMENOrdering Facility: [facility] Address: [address] [place], [place] [address] Performed By: #### 2 777-1, , 33858-5 ####[facility] LABORATORYCLIA [id number] [place] [address] [place] Sodium [Moles/Vol] 137 mmol/L Normal 136-144 [facility] Comment on above: Order Comment: Speci men Type: BLOOD SPECIMENOrdering Facility: [facility] Address: [address] [place] [address] Performed By: #### 2 777-1, , 31115-9 ####[facility] LABORATORYCLIA [id number] [address] [place] Urea nitrogen [Mass/Vol] 13 mg/dL Normal 7-21 [facility] Comment on above: Order Comment: Speci men Type: BLOOD SPECIMENOrdering Facility: [facility] Address: [address] [place] [address] Performed By: #### 2 777-1, 53569-7, 71128-1 ####[facility] LABORATORYCLIA [id number] [address] [place] CASE MANAGEMon 01-02-2023 CASE MANAGEM Normal [facility] CBC panel Auto (Bld)on 01-02 Erythrocyte distribution width (RBC) [Ratio] 14.9 % Normal 11.5-15.0 [facility] Comment on above: Order Comment: Speci men Type: BLOOD SPECIMENOrdering Facility: [facility] Address: [address] [place] [address] Performed By: #### 5 8410-2 ####[facility] LABORATORYCLIA [id number] [address] [place] Hematocrit (Bld) [Volume fraction] 31.3 % Low 36.0-46.0 [facility] Comment on above: Order Comment: Speci men Type: BLOOD SPECIMENOrdering Facility: [facility] Address: [address] [place] [address] Performed By: #### 5 8410-2 ####[facility] LABORATORYCLIA [id number] [address] [place] Hemoglobin (Bld) [Mass/Vol] 9.7 g/dL Low 11.5-15.5 [facility] Comment on above: Order Comment: Speci men Type: BLOOD SPECIMENOrdering Facility: [facility] Address: [address] [place] [address] Performed By: #### 5 8410-2 ####[facility] LABORATORYCLIA [id number] [place] [address] [place] MCH (RBC) [Entitic mass] 31.7 pg Normal 26.0-34.0 [facility] Comment on above: Order Comment: Speci men Type: BLOOD SPECIMENOrdering Facility: [facility] Address: [address] [address] Performed By: #### 5 8410-2 ####[facility] LABORATORYCLIA [id number] [address] MCHC (RBC) [Mass/Vol] 31.0 g/dL Normal 30.5-36.0 [facility] Comment on above: Order Comment: Speci men Type: BLOOD SPECIMENOrdering Facility: [facility] Address: [address] [place] [address] Performed By: #### 5 8410-2 ####[facility] LABORATORYCLIA [id number] [address] [place] MCV (RBC) [Entitic vol] 102.3 fL High 80.0-100.0 [facility] Comment on above: Order Comment: Speci men Type: BLOOD SPECIMENOrdering Facility: [facility] Address: [address] [place] [address] Performed By: #### 5 8410-2 ####[facility] LABORATORYCLIA [id number] [address] Nucleated RBC (Bld) [#/Vol] 10*3/uL Normal <0.01 [facility] Comment on above: Order Comment: Speci men Type: BLOOD SPECIMENOrdering Facility: [facility] Address: [address] [place] [address] Performed By: #### 5 8410-2 ####[facility] LABORATORYCLIA [id number] [address] Platelet mean volume (Bld) [Entitic vol] 10.8 fL Normal 9.0-12.7 [facility] Comment on above: Order Comment: Speci men Type: BLOOD SPECIMENOrdering Facility: [facility] Address: [address] [place] [address] Performed By: #### 5 8410-2 ####[facility] LABORATORYCLIA [id number] [place] [address] [place] Platelets (Bld) [#/Vol] 251 10*3/uL Normal 150-400 [facility] Comment on above: Order Comment: Speci men Type: BLOOD SPECIMENOrdering Facility: [facility] Address: [address] [place] [address] Performed By: #### 5 8410-2 ####[facility] LABORATORYCLIA [id number] [place] [address] [place] RBC (Bld) [#/Vol] 3.06 10*6/uL Low 3.90-5.20 [facility] Comment on above: Order Comment: Speci men Type: BLOOD SPECIMENOrdering Facility: [facility] Address: [address] [place] [address] Performed By: #### 5 8410-2 ####[facility] LABORATORYCLIA [id number] [address] [facility] WBC (Bld) [#/Vol] 8.14 10*3/uL Normal 3.70-11.00 [facility] Comment on above: Order Comment: Speci men Type: BLOOD SPECIMENOrdering Facility: [facility] Address: [address] [place] [address] Performed By: #### 5 8410-2 ####[facility] LABORATORYCLIA [id number] [address] [facility] CONSULT PROGon 01-02-2023 CONSULT PROG Normal [facility] Magnesium SerPl-mCncon 01-02 Magnesium [Mass/Vol] 1.6 mg/dL Low 1.7-2.3 [facility] Comment on above: Order Comment: Speci men Type: BLOOD SPECIMENOrdering Facility: [facility] Address: [address] [place] [address] Performed By: #### 2 777-1, 78888-5, 44468-6 ####[facility] LABORATORYCLIA [id number] [address] [place] Phosphate SerPl-mCncon 01-02 Phosphate [Mass/Vol] 3.5 mg/dL Normal 2.7-4.8 [facility] Comment on above: Order Comment: Speci men Type: BLOOD SPECIMENOrdering Facility: [facility] Address: [address] [place] [address] Performed By: #### 2 777-1, 74618-3, 96514-7 ####[facility] LABORATORYCLIA [id number] [place] [address] [place] Basic metabolic 2000 panelon 01-01-2023 Anion gap [Moles/Vol] 9 mmol/L Normal 9-18 [facility] Comment on above: Order Comment: Speci men Type: BLOOD SPECIMENOrdering Facility: [facility] Address: [address] [place] [address] Performed By: #### 2 4321-2, , 2776- ####[facility] LABORATORYCLIA [id number] [place] [address] [place] Calcium [Mass/Vol] 9.1 mg/dL Normal 8.5-10.2 [facility] Comment on above: Order Comment: Speci men Type: BLOOD SPECIMENOrdering Facility: [facility] Address: [address] [place] [address] Performed By: #### 2 4321-2, , 277-1 ####[facility] LABORATORYCLIA [id number] [place] [address] [place] Chloride [Moles/Vol] 104 mmol/L Normal 97-105 [facility] Comment on above: Order Comment: Speci men Type: BLOOD SPECIMENOrdering Facility: [facility] Address: [address] [place] [address] Performed By: #### 2 4321-2, , 2776-1 ####[facility] LABORATORYCLIA [id number] [place] [address] [place] CO2 [Moles/Vol] 24 mmol/L Normal 22-30 [facility] Comment on above: Order Comment: Speci men Type: BLOOD SPECIMENOrdering Facility: [facility] Address: [address] [place] [address] Performed By: #### 2 4321-2, , 2776-10 ####[facility] LABORATORYCLIA [id number] [place] [address] [place] Creatinine [Mass/Vol] 0.47 mg/dL Low 0.58-0.96 [facility] Comment on above: Order Comment: Speci men Type: BLOOD SPECIMENOrdering Facility: [facility] Address: [address] [place] [address] Performed By: #### 2 4321-2, , 2776-10 ####[facility] SERVICESCLIA [id number] [address] [place] ESTIMATED GLOMERULAR FILTRATION RATE 102 mL/min/1.73m??? Normal >=60 [facility] Comment on above: Order Comment: Speci men Type: BLOOD SPECIMENOrdering Facility: [facility] Address: [address] [place] [address] Result Comment: Mariely mated Glomerular Filtration Rate [...] Performed By: #### 2 4321-2, , 2776-10 ####[facility] LABORATORYCLIA [id number] [place] [address] [place] Glucose [Mass/Vol] 131 mg/dL High 74-99 [facility] Comment on above: Order Comment: Speci men Type: BLOOD SPECIMENOrdering Facility: [facility] Address: [address] [place] [address] Result Comment: The [place] [employer] Association (ADA) provides guidance for cutoff [...] Standards of Medical Care in Diabetes 2016, [place] [employer]. Diabetes Care. 2016.39(Suppl 1). Performed By: #### 2 4321-2, , 2776-10 ####[facility] LABORATORYCLIA [id number] [place] [address] [place] Potassium [Moles/Vol] 4.0 mmol/L Normal 3.7-5.1 [facility] Comment on above: Order Comment: Speci men Type: BLOOD SPECIMENOrdering Facility: [facility] Address: [address] [place] [address] Performed By: #### 2 1-2, , 2776-10 ####[facility] LABORATORYCLIA [id number] [place] [address] [place] Sodium [Moles/Vol] 137 mmol/L Normal 136-144 [facility] Comment on above: Order Comment: Rejii men Type: BLOOD SPECIMENOrdering Facility: [facility] Address: [address] [place] [address] Performed By: #### 2 4320-2, , 2776-10 ####[facility] LABORATORYCLIA [id number] [place] [address] [place] Urea nitrogen [Mass/Vol] 16 mg/dL Normal 7-21 [facility] Comment on above: Order Comment: Speci men Type: BLOOD SPECIMENOrdering Facility: [facility] Address: [address] [address] Performed By: #### 2 4321-2, , 2776-10 ####[facility] LABORATORYCLIA [id number] [address] CBC panel Auto (Bld)on 01-01 Erythrocyte distribution width (RBC) [Ratio] 15.1 % High 11.5-15.0 [facility] Comment on above: Order Comment: Speci men Type: BLOOD SPECIMENOrdering Facility: [facility] Address: [address] [place] [address] Performed By: #### 5 8410-2 ####[facility] LABORATORYCLIA [id number] [address] Hematocrit (Bld) [Volume fraction] 30.0 % Low 36.0-46.0 [facility] Comment on above: Order Comment: Speci men Type: BLOOD SPECIMENOrdering Facility: [facility] Address: [address] [place] [address] Performed By: #### 5 8410-2 ####[facility]ORATORYCLIA [id number] [address] Hemoglobin (Bld) [Mass/Vol] 9.5 g/dL Low 11.5-15.5 [facility] Comment on above: Order Comment: Speci men Type: BLOOD SPECIMENOrdering Facility: [facility] Address: [address] [place] [address] Performed By: #### 5 8410-2 ####[facility] LABORATORYCLIA [id number] [address] STATES [facility] MCH (RBC) [Entitic mass] 32.2 pg Normal 26.0-34.0 [facility] Comment on above: Order Comment: Speci men Type: BLOOD SPECIMENOrdering Facility: [facility] Address: [address] [place] [address] Performed By: #### 5 8410-2 ####[facility] LABORATORYCLIA [id number] [address] STATES [facility] MCHC (RBC) [Mass/Vol] 31.7 g/dL Normal 30.5-36.0 [facility] Comment on above: Order Comment: Speci men Type: BLOOD SPECIMENOrdering Facility: [facility] Address: [address] [address] Performed By: #### 5 8410-2 ####[facility] LABORATORYCLIA [id number] [address] MCV (RBC) [Entitic vol] 101.7 fL High 80.0-100.0 [facility] Comment on above: Order Comment: Speci men Type: BLOOD SPECIMENOrdering Facility: [facility] Address: [address] [address] Performed By: #### 5 8410-2 ####[facility] LABORATORYCLIA [id number] [address] [place] Nucleated RBC (Bld) [#/Vol] 10*3/uL Normal <0.01 [facility] Comment on above: Order Comment: Speci men Type: BLOOD SPECIMENOrdering Facility: [facility] Address: [address] [place] [address] Performed By: #### 5 8410-2 ####[facility] LABORATORYCLIA [id number] [address] [place] Platelet mean volume (Bld) [Entitic vol] 10.4 fL Normal 9.0-12.7 [facility] Comment on above: Order Comment: Speci men Type: BLOOD SPECIMENOrdering Facility: [facility] Address: [address] [place] [address] Performed By: #### 5 8410-2 ####[facility] LABORATORYCLIA [id number] [address] [place] Platelets (Bld) [#/Vol] 266 10*3/uL Normal 150-400 [facility] Comment on above: Order Comment: Speci men Type: BLOOD SPECIMENOrdering Facility: [facility] Address: [address] [place] [address] Performed By: #### 5 8410-2 ####[facility] LABORATORYCLIA [id number] [place] [address] [place] RBC (Bld) [#/Vol] 2.95 10*6/uL Low 3.90-5.20 [facility] Comment on above: Order Comment: Speci men Type: BLOOD SPECIMENOrdering Facility: [facility] Address: [address] [place] [address] Performed By: #### 5 8410-2 ####[facility] LABORATORYCLIA [id number] [address] [facility] WBC (Bld) [#/Vol] 7.31 10*3/uL Normal 3.70-11.00 [facility] Comment on above: Order Comment: Speci men Type: BLOOD SPECIMENOrdering Facility: [facility] Address: [address] [place] [address] Performed By: #### 5 8410-2 ####[facility]ORATORYCLIA [id number] [address] CONSULTon 01-01-2023 CONSULT Normal [facility] Magnesium [Mass/Vol] 1.8 mg/dL Normal 1.7-2.3 [facility] Comment on above: Order Comment: Speci men Type: BLOOD SPECIMENOrdering Facility: [facility] Address: [address] [place] [address] Performed By: #### 2 4321-2, 03715-8, 2777-1 ####[facility] LABORATORYCLIA [id number] [address] [place] NURSING PROGon 01-01-2023 NURSING PROG Normal [facility] Phosphate SerPl-mCncon 01-01 Phosphate [Mass/Vol] 4.6 mg/dL Normal 2.7-4.8 [facility] Comment on above: Order Comment: Speci men Type: BLOOD SPECIMENOrdering Facility: [facility] Address: [address] [place] [address] Performed By: #### 2 4321-2, 96547-6, 2777-1 ####[facility] LABORATORYCLIA [id number] [place] [address] [place] Bacteria Spec Resp Culton Bacteria identified Respiratory culture Nom (Unsp spec) CULTURE, RESPIRATORY: Few Normal respiratory jorge present GRAM STAIN: Rare Gram positive cocci Rare Polymorphonuclear leukocytes Rare Epithelial cells Abnormal [facility] Comment on above: Performed By: #### 3 2355-0 ####[facility] LABORATORYCLIA [id number] [place] [address] [place] Basic metabolic 2000 panelon 12-31-2022 Anion gap [Moles/Vol] 9 mmol/L Normal 9-18 [facility] Comment on above: Order Comment: Speci men Type: BLOOD SPECIMENOrdering Facility: [facility] Address: [address] [place] [address] Performed By: #### 1 9123-9, 2777-1, 34759-9 ####[facility] LABORATORYCLIA [id number] [place] [address] [place] Calcium [Mass/Vol] 9.1 mg/dL Normal 8.5-10.2 [facility] Comment on above: Order Comment: Speci men Type: BLOOD SPECIMENOrdering Facility: [facility] Address: [address] [place] [address] Performed By: #### 1 9123-9, 27771, 56403-7 ####[facility] LABORATORYCLIA [id number] [place] [address] [place] Chloride [Moles/Vol] 106 mmol/L High 97-105 [facility] Comment on above: Order Comment: Speci men Type: BLOOD SPECIMENOrdering Facility: [facility] Address: [address] [place] [address] Performed By: #### 1 9123-9, 2777, 73624-6 ####[facility] LABORATORYCLIA [id number] [place] [address] [place] CO2 [Moles/Vol] 23 mmol/L Normal 22-30 [facility] Comment on above: Order Comment: Speci men Type: BLOOD SPECIMENOrdering Facility: [facility] Address: [place] [address] Performed By: #### 1 9123-9, 2777-1, 11503-4 ####[facility] [id number] [address] [place] Creatinine [Mass/Vol] 0.45 mg/dL Low 0.58-0.96 [facility] Comment on above: Order Comment: Speci men Type: BLOOD SPECIMENOrdering Facility: [facility] Address: [address] [place] [address] Performed By: #### 1 9123-9, 2777-, 19990-2 ####[facility] [id number] [address] STATES OF [facility] ESTIMATED GLOMERULAR FILTRATION RATE 103 mL/min/1.73m??? Normal >=60 [facility] Comment on above: Order Comment: Cary men Type: BLOOD SPECIMENOrdering Facility: [facility] Address: [address] [place] [address] Result Comment: Mariely mated Glomerular Filtration Rate [...] actual GFR. Performed By: #### 1 9123-9, 2777-, 96488-6 ####[facility] [id number] [place] [address] [place] Glucose [Mass/Vol] 124 mg/dL High 74-99 [facility] Comment on above: Order Comment: Speci men Type: BLOOD SPECIMENOrdering Facility: [facility] Address: [address] [place] [address] Result Comment: The [place] Diabetes Association (ADA) provides guidance for cutoff [...] Standards of Medical Care in Diabetes 2016, [place] [employer]. Diabetes Care. 2016.39(Suppl 1). Performed By: #### 1 9123-9, 2777-1, 19010-1 ####[facility] LABORATORYCLIA [id number] [place] [address] [place] Potassium [Moles/Vol] 4.4 mmol/L Normal 3.7-5.1 [facility] Comment on above: Order Comment: Cary lujan Type: BLOOD SPECIMENOrdering Facility: [facility] Address: [address] [place] [address] Performed By: #### 1 9123-9, 2777-, 75777-1 ####[facility] SERVICESCLIA [id number] [address] STATES OF [facility] Sodium [Moles/Vol] 138 mmol/L Normal 136-144 [facility] Comment on above: Order Comment: Cary lujan Type: BLOOD SPECIMENOrdering Facility: [facility] Address: [address] [place] [address] Performed By: #### 1 9123-9, 2777-, 58343-3 ####[facility] LABORATORYCLIA [id number] [place] [address] [place] Urea nitrogen [Mass/Vol] 11 mg/dL Normal 7-21 [facility] Comment on above: Order Comment: Cary lujan Type: BLOOD SPECIMENOrdering Facility: [facility] Address: [address] [place] [address] Performed By: #### 1 9123-9, 2777-, 51565-0 ####[facility] LABORATORYCLIA [id number] [address] [place] CASE MANAGEMon 12-31-2022 CASE MANAGEM Normal [facility] CBC panel Auto (Bld)on 12-31 Erythrocyte distribution width (RBC) [Ratio] 14.6 % Normal 11.5-15.0 [facility] Comment on above: Order Comment: Speci men Type: BLOOD SPECIMENOrdering Facility: [facility] Address: [address] [place] [address] Performed By: #### 5 8410-2 ####[facility] LABORATORYCLIA [id number] [address] OF [facility] Hematocrit (Bld) [Volume fraction] 29.2 % Low 36.0-46.0 [facility] Comment on above: Order Comment: Speci men Type: BLOOD SPECIMENOrdering Facility: [facility] Address: [address] [place] [address] Performed By: #### 5 8410-2 ####[facility] LABORATORYCLIA [id number] [address] [place] [facility] Hemoglobin (Bld) [Mass/Vol] 9.4 g/dL Low 11.5-15.5 [facility] Comment on above: Order Comment: Speci men Type: BLOOD SPECIMENOrdering Facility: [facility] Address: [address] [place] [address] Performed By: #### 5 8410-2 ####[facility] LABORATORYCLIA [id number] [address] [place] MCH (RBC) [Entitic mass] 32.4 pg Normal 26.0-34.0 [facility] Comment on above: Order Comment: Speci men Type: BLOOD SPECIMENOrdering Facility: [facility] Address: [address] [place] [address] Performed By: #### 5 8410-2 ####[facility] LABORATORYCLIA [id number] [address] [place] MCHC (RBC) [Mass/Vol] 32.2 g/dL Normal 30.5-36.0 [facility] Comment on above: Order Comment: Speci men Type: BLOOD SPECIMENOrdering Facility: [facility] Address: [address] [address] Performed By: #### 5 8410-2 ####[facility] LABORATORYCLIA [id number] [address] MCV (RBC) [Entitic vol] 100.7 fL High 80.0-100.0 [facility] Comment on above: Order Comment: Speci men Type: BLOOD SPECIMENOrdering Facility: [facility] Address: [address] [address] Performed By: #### 5 8410-2 ####[facility] LABORATORYCLIA [id number] [address] [place] Nucleated RBC (Bld) [#/Vol] 10*3/uL Normal <0.01 [facility] Comment on above: Order Comment: Speci men Type: BLOOD SPECIMENOrdering Facility: [facility] Address: [address] [address] Performed By: #### 5 8410-2 ####[facility] LABORATORYCLIA [id number] [address] [place] [facility] Platelet mean volume (Bld) [Entitic vol] 10.9 fL Normal 9.0-12.7 [facility] Comment on above: Order Comment: Speci men Type: BLOOD SPECIMENOrdering Facility: [facility] Address: [address] [place] [address] Performed By: #### 5 8410-2 ####[facility] LABORATORYCLIA [id number] [address] [place] [facility] Platelets (Bld) [#/Vol] 292 10*3/uL Normal 150-400 [facility] Comment on above: Order Comment: Speci men Type: BLOOD SPECIMENOrdering Facility: [facility] Address: [address] [place] [address] Performed By: #### 5 8410-2 ####[facility] LABORATORYCLIA [id number] [address] [place] RBC (Bld) [#/Vol] 2.90 10*6/uL Low 3.90-5.20 [facility] Comment on above: Order Comment: Speci men Type: BLOOD SPECIMENOrdering Facility: [facility] Address: [address] [place] [address] Performed By: #### 5 8410-2 ####[facility] LABORATORYCLIA [id number] [address] OF [facility] WBC (Bld) [#/Vol] 9.08 10*3/uL Normal 3.70-11.00 [facility] Comment on above: Order Comment: Speci men Type: BLOOD SPECIMENOrdering Facility: [facility] Address: [address] [place] [address] Performed By: #### 5 8410-2 ####[facility] LABORATORYCLIA [id number] [address] CONSULTon 12-31-2022 CONSULT Normal [facility] CONSULT Normal [facility] Magnesium SerPl-ncon 12-31 Magnesium [Mass/Vol] 1.5 mg/dL Low 1.7-2.3 [facility] Comment on above: Order Comment: Speci men Type: BLOOD SPECIMENOrdering Facility: [facility] Address: [address] [place] [address] Performed By: #### 1 9123-9, 2777-1, 25998-7 ####[facility] LABORATORYCLIA [id number] [address] OF [facility] NURSING PROGon 12-31-2022 NURSING PROG Normal [facility] NUTRITIONon 12-31-2022 NUTRITION Normal [facility] Phosphate SerPl-mCncon 12-31 Phosphate [Mass/Vol] 3.9 mg/dL Normal 2.7-4.8 [facility] Comment on above: Order Comment: Speci men Type: BLOOD SPECIMENOrdering Facility: [facility] Address: [address] [place] [address] Performed By: #### 1 9123-9, 2777-1, 34268-2 ####[facility] LABORATORYCLIA [id number] [place] [address] [place] ALLIED HEALTHon 12-30-2022 ALLIED HEALTH Normal [facility] Basic metabolic 2000 panelon 12-30-2022 Anion gap [Moles/Vol] 8 mmol/L Low 9-18 [facility] Comment on above: Order Comment: Speci men Type: BLOOD SPECIMENOrdering Facility: [facility] Address: [address] [place] [address] Performed By: #### 2 4321-2, , 2776-10 ####[facility] LABCLIA [id number] [place] [address] [place] Calcium [Mass/Vol] 9.2 mg/dL Normal 8.5-10.2 [facility] Comment on above: Order Comment: Speci men Type: BLOOD SPECIMENOrdering Facility: [facility] Address: [address] [place] [address] Performed By: #### 2 4321-2, , 2776-10 ####[facility] LABCLIA [id number] [place] [address] [place] Chloride [Moles/Vol] 103 mmol/L Normal 97-105 [facility] Comment on above: Order Comment: Speci men Type: BLOOD SPECIMENOrdering Facility: [facility] Address: [address] [place] [address] Performed By: #### 2 4321-2, , 2776-10 ####[facility] LABCLIA [id number] [place] [address] [place] CO2 [Moles/Vol] 26 mmol/L Normal 22-30 [facility] Comment on above: Order Comment: Speci men Type: BLOOD SPECIMENOrdering Facility: [facility] Address: [address] [place] [address] Performed By: #### 2 4321-2, , 2776-10 ####[facility] LABCLIA [id number] [place] [address] [place] Creatinine [Mass/Vol] 0.44 mg/dL Low 0.58-0.96 [facility] Comment on above: Order Comment: Cary lujan Type: BLOOD SPECIMENOrdering Facility: [facility] Address: [address] [phone] Performed By: #### 2 4321-2, , 2776-10 ####[facility] LABCLIA [id number] [place] [address] [facility] [place] ESTIMATED GLOMERULAR FILTRATION RATE 104 mL/min/1.73m??? Normal >=60 [facility] Comment on above: Order Comment: Cary lujan Type: BLOOD SPECIMENOrdering Facility: [facility] Address: [address] [place] [address] Result Comment: Mariely mated Glomerular Filtration Rate [...] Performed By: #### 2 4321-2, , 2776-10 ####[facility] [place] [place] LABCLIA [id number] [place] [address] [facility] Glucose [Mass/Vol] 104 mg/dL High 74-99 [facility] Comment on above: Order Comment: Cary tai Type: BLOOD SPECIMENOrdering Facility: [facility] Address: [address] [phone] Result Comment: The [place] Diabetes Association (ADA) provides guidance for cutoff [...] Standards of Medical Care in Diabetes 2016, [place] [employer]. Diabetes Care. 2016.39(Suppl 1). Performed By: #### 2 4321-2, , 2776-10 ####[email or web address] LABCLIA [id number] [place] [address] [place] Potassium [Moles/Vol] 4.6 mmol/L Normal 3.7-5.1 [facility] Comment on above: Order Comment: Cary lujan Type: BLOOD SPECIMENOrdering Facility: [facility] Address: [address] [place] [address] Performed By: #### 2 4321-2, , 2776-10 ####[email or web address] LABCLIA [id number] [place] [address] [place] [facility] Sodium [Moles/Vol] 137 mmol/L Normal 136-144 [facility] Comment on above: Order Comment: Cary lujan Type: BLOOD SPECIMENOrdering Facility: [facility] Address: [address] [place] [address] Performed By: #### 2 4321-2, , 2776-10 ####[email or web address] LABCLIA [id number] [place] [address] [place] Urea nitrogen [Mass/Vol] 10 mg/dL Normal 7-21 [facility] Comment on above: Order Comment: Cary lujan Type: BLOOD SPECIMENOrdering Facility: [facility] Address: [address] [address] Performed By: #### 2 4321-2, , 2776-10 ####[facility] [email or web address] LABCLIA [id number] [place] [address] [place] CBC panel Auto (Bld)on 12-30 Erythrocyte distribution width (RBC) [Ratio] 14.8 % Normal 11.5-15.0 [facility] Comment on above: Order Comment: Speci men Type: BLOOD SPECIMENOrdering Facility: [facility] Address: [address] [place] [address] Performed By: #### 5 8410-2 ####[facility] LABORATORYCLIA [id number] [address] OF [facility] Hematocrit (Bld) [Volume fraction] 29.8 % Low 36.0-46.0 [facility] Comment on above: Order Comment: Speci men Type: BLOOD SPECIMENOrdering Facility: [facility] Address: [address] [place] [address] Performed By: #### 5 8410-2 ####[facility] LABORATORYCLIA [id number] [address] [place] Hemoglobin (Bld) [Mass/Vol] 9.8 g/dL Low 11.5-15.5 [facility] Comment on above: Order Comment: Speci men Type: BLOOD SPECIMENOrdering Facility: [facility] Address: [address] [place] [address] Performed By: #### 5 8410-2 ####[facility] LABORATORYCLIA [id number] [address] [place] MCH (RBC) [Entitic mass] 32.8 pg Normal 26.0-34.0 [facility] Comment on above: Order Comment: Speci men Type: BLOOD SPECIMENOrdering Facility: [facility] Address: [address] [place] [address] Performed By: #### 5 8410-2 ####[facility] LABORATORYCLIA [id number] [address] [place] MCHC (RBC) [Mass/Vol] 32.9 g/dL Normal 30.5-36.0 [facility] Comment on above: Order Comment: Speci men Type: BLOOD SPECIMENOrdering Facility: [facility] Address: [address] [place] [address] Performed By: #### 5 8410-2 ####[facility] LABORATORYCLIA [id number] [address] [place] MCV (RBC) [Entitic vol] 99.7 fL Normal 80.0-100.0 [facility] Comment on above: Order Comment: Speci men Type: BLOOD SPECIMENOrdering Facility: [facility] Address: [address] [place] [address] Performed By: #### 5 8410-2 ####[facility] LABORATORYCLIA [id number] [address] [place] Nucleated RBC (Bld) [#/Vol] 10*3/uL Normal <0.01 [facility] Comment on above: Order Comment: Speci men Type: BLOOD SPECIMENOrdering Facility: [facility] Address: [address] [place] [address] Performed By: #### 5 8410-2 ####[facility] LABORATORYCLIA [id number] [address] [place] Platelet mean volume (Bld) [Entitic vol] 10.8 fL Normal 9.0-12.7 [facility] Comment on above: Order Comment: Speci men Type: BLOOD SPECIMENOrdering Facility: [facility] Address: [address] [place] [address] Performed By: #### 5 8410-2 ####[facility] LABORATORYCLIA [id number] [address] [place] Platelets (Bld) [#/Vol] 321 10*3/uL Normal 150-400 [facility] Comment on above: Order Comment: Speci men Type: BLOOD SPECIMENOrdering Facility: [facility] Address: [address] [place] [address] Performed By: #### 5 8410-2 ####[facility] LABORATORYCLIA [id number] [address] [place] RBC (Bld) [#/Vol] 2.99 10*6/uL Low 3.90-5.20 [facility] Comment on above: Order Comment: Speci men Type: BLOOD SPECIMENOrdering Facility: [facility] Address: [address] [place] [address] Performed By: #### 5 8410-2 ####[facility] LABORATORYCLIA [id number] [address] WBC (Bld) [#/Vol] 11.02 10*3/uL High 3.70-11.00 [facility] Comment on above: Order Comment: Speci men Type: BLOOD SPECIMENOrdering Facility: [facility] Address: [address] [place] [address] Performed By: #### 5 8410-2 ####[facility] LABORATORYCLIA [id number] [address] Magnesium SerPl-mCncon 12-30 Magnesium [Mass/Vol] 1.7 mg/dL Normal 1.7-2.3 [facility] Comment on above: Order Comment: Speci men Type: BLOOD SPECIMENOrdering Facility: [facility] Address: [address] [place] [address] Performed By: #### 2 4321-2, , 2776-10 ####[facility] LABCLIA [id number] [place], [place] [address] [place] [address] [place] NURSING PROGon 12-30-2022 NURSING PROG Normal [facility] NURSING PROG Normal [facility] NURSING PROG Normal [facility] Phosphate SerPl-mCncon 12-30 Phosphate [Mass/Vol] 4.5 mg/dL Normal 2.7-4.8 [facility] Comment on above: Order Comment: Speci men Type: BLOOD SPECIMENOrdering Facility: [facility] Address: [address] [place] [address] Performed By: #### 2 4321-2, , 2776-10 ####[facility] LABCLIA [id number] [place] [address] [place] XR CHEST 1V FRONTALon 2022 XR CHEST 1V FRONTAL Normal [facility] ALLIED HEALTHon 12-29-2022 ALLIED HEALTH Normal [facility] Basic metabolic 2000 panelon 12-29-2022 Anion gap [Moles/Vol] 8 mmol/L Low 9-18 [facility] Comment on above: Order Comment: Speci men Type: BLOOD SPECIMENOrdering Facility: [facility] Address: [address] [place] [address] Performed By: #### 2 4321-2, , 2776-10 ####[facility] LABORATORYCLIA [id number] [place] [address] [place] Calcium [Mass/Vol] 9.1 mg/dL Normal 8.5-10.2 [facility] Comment on above: Order Comment: Speci men Type: BLOOD SPECIMENOrdering Facility: [facility] Address: [address] [place] [address] Performed By: #### 2 4320-2, , 2776-10 ####[facility] LABORATORYCLIA [id number] [place] [address] [place] Chloride [Moles/Vol] 106 mmol/L High 97-105 [facility] Comment on above: Order Comment: Speci men Type: BLOOD SPECIMENOrdering Facility: [facility] Address: [address] [place] [address] Performed By: #### 2 4321-2, , 2776-10 ####[facility] LABORATORYCLIA [id number] [place] [address] [place] CO2 [Moles/Vol] 23 mmol/L Normal 22-30 [facility] Comment on above: Order Comment: Speci men Type: BLOOD SPECIMENOrdering Facility: [facility] Address: [address] [place] [address] Performed By: #### 2 4321-2, , 2776-10 ####[facility] LABORATORYCLIA [id number] [place] [address] [place] Creatinine [Mass/Vol] 0.43 mg/dL Low 0.58-0.96 [facility] Comment on above: Order Comment: Rejicy lujan Type: BLOOD SPECIMENOrdering Facility: [facility] Address: [address] [phone] Performed By: #### 2 4321-2, 45361-0, 2776-10 ####[facility] LABORATORYCLIA [id number] [address] OF [facility] ESTIMATED GLOMERULAR FILTRATION RATE 104 mL/min/1.73m??? Normal >=60 [facility] Comment on above: Order Comment: Rejicy lujan Type: BLOOD SPECIMENOrdering Facility: [facility] Address: [address] Result Comment: Mariely mated Glomerular Filtration [...] Performed By: #### 2 4321-2, , 2776-10 ####[facility] LABORATORYCLIA [id number] [place] [address] [place] Glucose [Mass/Vol] 110 mg/dL High 74-99 [facility] Comment on above: Order Comment: Cary tai Type: BLOOD SPECIMENOrdering Facility: [facility] Address: [address] [phone] Result Comment: The [place] [employer] (ADA) provides guidance for cutoff [...] Standards of Medical Care in Diabetes 2016, [place] [employer]. Diabetes Care. 2016.39(Suppl 1). Performed By: #### 2 4321-2, , 2776-10 ####[facility] LABORATORYCLIA [id number] [place] [address] [place] Potassium [Moles/Vol] 4.5 mmol/L Normal 3.7-5.1 [facility] Comment on above: Order Comment: Speci men Type: BLOOD SPECIMENOrdering Facility: [facility] Address: [address] [address] Performed By: #### 2 4321-2, , 2776-10 ####[facility] LABORATORYCLIA [id number] [address] STATES [facility] Sodium [Moles/Vol] 137 mmol/L Normal 136-144 [facility] Comment on above: Order Comment: Speci men Type: BLOOD SPECIMENOrdering Facility: [facility] Address: [address] [address] Performed By: #### 2 4321-2, , 2776-10 ####[facility] LABORATORYCLIA [id number] [address] [place] Urea nitrogen [Mass/Vol] 9 mg/dL Normal 7-21 [facility] Comment on above: Order Comment: Speci men Type: BLOOD SPECIMENOrdering Facility: [facility] Address: [address] [address] Performed By: #### 2 4321-2, , 2776-10 ####[facility] LABORATORYCLIA [id number] [address] [place] CBC panel Auto (Bld)on 12-29 Erythrocyte distribution width (RBC) [Ratio] 14.7 % Normal 11.5-15.0 [facility] Comment on above: Order Comment: Speci men Type: BLOOD SPECIMENOrdering Facility: [facility] Address: [address] [address] Performed By: #### 5 8410-2 ####[facility] LABORATORYCLIA [id number] [address] STATES [facility] Hematocrit (Bld) [Volume fraction] 30.4 % Low 36.0-46.0 [facility] Comment on above: Order Comment: Speci men Type: BLOOD SPECIMENOrdering Facility: [facility] Address: [address] [place] [address] Performed By: #### 5 8410-2 ####[facility] LABORATORYCLIA [id number] [address] [place] [facility] Hemoglobin (Bld) [Mass/Vol] 9.5 g/dL Low 11.5-15.5 [facility] Comment on above: Order Comment: Speci men Type: BLOOD SPECIMENOrdering Facility: [facility] Address: [address] [place] [address] Performed By: #### 5 8410-2 ####[facility] LABORATORYCLIA [id number] [address] MCH (RBC) [Entitic mass] 31.9 pg Normal 26.0-34.0 [facility] Comment on above: Order Comment: Speci men Type: BLOOD SPECIMENOrdering Facility: [facility] Address: [address] [place] [address] Performed By: #### 5 8410-2 ####[facility] LABORATORYCLIA [id number] [address] [place] MCHC (RBC) [Mass/Vol] 31.3 g/dL Normal 30.5-36.0 [facility] Comment on above: Order Comment: Speci men Type: BLOOD SPECIMENOrdering Facility: [facility] Address: [address] [place] [address] Performed By: #### 5 8410-2 ####[facility] LABORATORYCLIA [id number] [address] [place] MCV (RBC) [Entitic vol] 102.0 fL High 80.0-100.0 [facility] Comment on above: Order Comment: Speci men Type: BLOOD SPECIMENOrdering Facility: [facility] Address: [address] [address] Performed By: #### 5 8410-2 ####[facility] LABORATORYCLIA [id number] [address] [place] Nucleated RBC (Bld) [#/Vol] 10*3/uL Normal <0.01 [facility] Comment on above: Order Comment: Speci men Type: BLOOD SPECIMENOrdering Facility: [facility] Address: [address] [address] Performed By: #### 5 8410-2 ####[facility] LABORATORYCLIA [id number] [address] [place] Platelet mean volume (Bld) [Entitic vol] 10.8 fL Normal 9.0-12.7 [facility] Comment on above: Order Comment: Speci men Type: BLOOD SPECIMENOrdering Facility: [facility] Address: [address] [address] Performed By: #### 5 8410-2 ####[facility] LABORATORYCLIA [id number] [address] [place] Platelets (Bld) [#/Vol] 332 10*3/uL Normal 150-400 [facility] Comment on above: Order Comment: Speci men Type: BLOOD SPECIMENOrdering Facility: [facility] Address: [address] [address] Performed By: #### 5 8410-2 ####[facility] LABORATORYCLIA [id number] [address] [place] RBC (Bld) [#/Vol] 2.98 10*6/uL Low 3.90-5.20 [facility] Comment on above: Order Comment: Speci men Type: BLOOD SPECIMENOrdering Facility: [facility] Address: [address] [place] [address] Performed By: #### 5 8410-2 ####[facility] LABORATORYCLIA [id number] [place] [address] [place] WBC (Bld) [#/Vol] 11.22 10*3/uL High 3.70-11.00 [facility] Comment on above: Order Comment: Speci men Type: BLOOD SPECIMENOrdering Facility: [facility] Address: [address] [address] Performed By: #### 5 8410-2 ####[facility] LABORATORYCLIA [id number] [address] [place] MRI BRAIN WO/W IVCONon 12-29 MRI BRAIN WO/W IVCON Normal [facility] Magnesium SerPl-ncon 12-29 Magnesium [Mass/Vol] 1.6 mg/dL Low 1.7-2.3 [facility] Comment on above: Order Comment: Speci men Type: BLOOD SPECIMENOrdering Facility: [facility] Address: [address] [place] [address] Performed By: #### 2 4321-2, , 2776-10 ####[facility] LABORATORYCLIA [id number] [address] [place] Phosphate SerPl-mCncon 12-29 Phosphate [Mass/Vol] 4.2 mg/dL Normal 2.7-4.8 [facility] Comment on above: Order Comment: Speci men Type: BLOOD SPECIMENOrdering Facility: [facility] Address: [address] [address] Performed By: #### 2 4321-2, , 2776-10 ####[facility] LABORATORYCLIA [id number] [place] [address] [place] Basic metabolic 2000 panelon 12-28-2022 Anion gap [Moles/Vol] 9 mmol/L Normal 07-01 [facility] Comment on above: Order Comment: Speci men Type: BLOOD SPECIMENOrdering Facility: [facility] Address: [address] [place] [address] Performed By: #### 2 777-1, , ####[facility] LABORATORYCLIA [id number] [place] [address] [place] Calcium [Mass/Vol] 8.7 mg/dL Normal 8.5-10.2 [facility] Comment on above: Order Comment: Speci men Type: BLOOD SPECIMENOrdering Facility: [facility] Address: [address] [place] [address] Performed By: #### 2 777-1, , ####[facility] LABORATORYCLIA [id number] [place] [address] [place] Chloride [Moles/Vol] 107 mmol/L High 97-105 [facility] Comment on above: Order Comment: Speci men Type: BLOOD SPECIMENOrdering Facility: [facility] Address: [address] [place] [address] Performed By: #### 2 777-1, , ####[facility] LABORATORYCLIA [id number] [place] [address] [place] CO2 [Moles/Vol] 22 mmol/L Normal 22-30 [facility] Comment on above: Order Comment: Speci men Type: BLOOD SPECIMENOrdering Facility: [facility] Address: [address] [place] [address] Performed By: #### 2 777-1, , ####[facility] LABORATORYCLIA [id number] [place] [address] [place] Creatinine [Mass/Vol] 0.44 mg/dL Low 0.58-0.96 [facility] Comment on above: Order Comment: Speci men Type: BLOOD SPECIMENOrdering Facility: [facility] Address: [address] [place] [address] Performed By: #### 2 777-1, , ####[facility] LABORATORYCLIA [id number] [place] [address] [place] ESTIMATED GLOMERULAR FILTRATION RATE 104 mL/min/1.73m??? Normal >=60 [facility] Comment on above: Order Comment: Cary lujan Type: BLOOD SPECIMENOrdering Facility: [facility] Address: [address] [place], [place] [address] Result Comment: Mariely mated Glomerular Filtration Rate [...] actual GFR. Performed By: #### 2 777-1, 71347-3, 15800-6 ####[facility] SERVICESCLIA [id number] [place] [address] [place] Glucose [Mass/Vol] 114 mg/dL High 74-99 [facility] Comment on above: Order Comment: Cary lujan Type: BLOOD SPECIMENOrdering Facility: [facility] Address: [address] [place] [address] Result Comment: The [place] [employer] (ADA) provides guidance for cutoff [...] Standards of Medical Care in Diabetes 2016, [place] [employer]. Diabetes Care. 2016.39(Suppl 1). Performed By: #### 2 777-1, 80758-7, 93049-7 ####[facility] LABORATORYCLIA [id number] [place] [id number] [place] Potassium [Moles/Vol] 4.1 mmol/L Normal 3.7-5.1 [facility] Comment on above: Order Comment: Cary lujan Type: BLOOD SPECIMENOrdering Facility: [facility] Address: [address] [address] Performed By: #### 2 777-1, 92799-3, ####[facility] LABORATORYCLIA [id number] [place] [id number] [place] [facility] Sodium [Moles/Vol] 138 mmol/L Normal 136-144 [facility] Comment on above: Order Comment: Speci men Type: BLOOD SPECIMENOrdering Facility: [facility] Address: [address] [place] [address] Performed By: #### 2 777-1, 64625-6, ####[facility] LABORATORYCLIA [id number] [address] [place] Urea nitrogen [Mass/Vol] 9 mg/dL Normal 7-21 [facility] Comment on above: Order Comment: Speci men Type: BLOOD SPECIMENOrdering Facility: [facility] Address: [address] [place] [address] Performed By: #### 2 777-1, 80187-3, ####[facility] LABORATORYCLIA [id number] [place] [id number] [place] CASE MANAGEMon 12-28-2022 CASE MANAGEM Normal [facility] CBC panel Auto (Bld)on 12-28 Erythrocyte distribution width (RBC) [Ratio] 14.7 % Normal 11.5-15.0 [facility] Comment on above: Order Comment: Speci men Type: BLOOD SPECIMENOrdering Facility: [facility] Address: [address] [place] [address] Performed By: #### 5 8410-2 ####[facility] LABORATORYCLIA [id number] [address] [place] Hematocrit (Bld) [Volume fraction] 29.9 % Low 36.0-46.0 [facility] Comment on above: Order Comment: Speci men Type: BLOOD SPECIMENOrdering Facility: [facility] Address: [address] [place] [address] Performed By: #### 5 8410-2 ####[facility] LABORATORYCLIA [id number] [address] Hemoglobin (Bld) [Mass/Vol] 9.5 g/dL Low 11.5-15.5 [facility] Comment on above: Order Comment: Speci men Type: BLOOD SPECIMENOrdering Facility: [facility] Address: [address] [place] [address] Performed By: #### 5 8410-2 ####[facility] LABORATORYCLIA [id number] [address] MCH (RBC) [Entitic mass] 32.2 pg Normal 26.0-34.0 [facility] Comment on above: Order Comment: Speci men Type: BLOOD SPECIMENOrdering Facility: [facility] Address: [address] [place] [address] Performed By: #### 5 8410-2 ####[facility] LABORATORYCLIA [id number] [address] MCHC (RBC) [Mass/Vol] 31.8 g/dL Normal 30.5-36.0 [facility] Comment on above: Order Comment: Speci men Type: BLOOD SPECIMENOrdering Facility: [facility] Address: [address] [place] [address] Performed By: #### 5 8410-2 ####[facility] LABORATORYCLIA [id number] [address] [place] MCV (RBC) [Entitic vol] 101.4 fL High 80.0-100.0 [facility] Comment on above: Order Comment: Speci men Type: BLOOD SPECIMENOrdering Facility: [facility] Address: [address] [place] [address] Performed By: #### 5 8410-2 ####[facility] LABORATORYCLIA [id number] [address] [facility] Nucleated RBC (Bld) [#/Vol] 10*3/uL Normal <0.01 [facility] Comment on above: Order Comment: Speci men Type: BLOOD SPECIMENOrdering Facility: [facility] Address: [address] [place] [address] Performed By: #### 5 8410-2 ####[facility] LABORATORYCLIA [id number] [address] [place] Platelet mean volume (Bld) [Entitic vol] 10.8 fL Normal 9.0-12.7 [facility] Comment on above: Order Comment: Speci men Type: BLOOD SPECIMENOrdering Facility: [facility] Address: [address] [place] [address] Performed By: #### 5 8410-2 ####[facility] LABORATORYCLIA [id number] [address] [place] Platelets (Bld) [#/Vol] 333 10*3/uL Normal 150-400 [facility] Comment on above: Order Comment: Speci men Type: BLOOD SPECIMENOrdering Facility: [facility] Address: [address] [place] [address] Performed By: #### 5 8410-2 ####[facility] LABORATORYCLIA [id number] [place] [address] [place] RBC (Bld) [#/Vol] 2.95 10*6/uL Low 3.90-5.20 [facility] Comment on above: Order Comment: Speci men Type: BLOOD SPECIMENOrdering Facility: [facility] Address: [address] [place] [address] Performed By: #### 5 8410-2 ####[facility] LABORATORYCLIA [id number] [place] [address] [place] WBC (Bld) [#/Vol] 11.00 10*3/uL Normal 3.70-11.00 [facility] Comment on above: Order Comment: Speci men Type: BLOOD SPECIMENOrdering Facility: [facility] Address: [address] [place] [address] Performed By: #### 5 8410-2 ####[facility] LABORATORYCLIA [id number] [place] [address] [place] CONSULTon 12-28-2022 CONSULT Normal [facility] Magnesium SerPl-mCncon 12-28 Magnesium [Mass/Vol] 1.7 mg/dL Normal 1.7-2.3 [facility] Comment on above: Order Comment: Speci men Type: BLOOD SPECIMENOrdering Facility: [facility] Address: [address] [place] [address] Performed By: #### 2 777-1, 80940-6, 50728-0 ####[facility] LABORATORYCLIA [id number] [address] [place] Phosphate SerPl-mCncon 12-28 Phosphate [Mass/Vol] 3.7 mg/dL Normal 2.7-4.8 [facility] Comment on above: Order Comment: Speci men Type: BLOOD SPECIMENOrdering Facility: [facility] Address: [address] [place] [address] Performed By: #### 2 777-1, 39622-9, ####[facility] LABORATORYCLIA [id number] [address] [place] ALLIED HEALTHon 12-27-2022 ALLIED HEALTH Normal [facility] ARTERIAL BLOOD GASESon 12-27 Base excess Calc (Bld) [Moles/Vol] 0 mmol/L Normal 0-2 [facility] Comment on above: Order Comment: Speci men Type: ARTERIAL BLOOD SPECIMENOrdering Facility: [facility] Address: [address] [address] Performed By: #### A LLBG ####[facility] LABORATORYCLIA [id number] [address] Body temperature 96.8 [degF] Normal [facility] Comment on above: Order Comment: Speci men Type: ARTERIAL BLOOD SPECIMENOrdering Facility: [facility] Address: [address] [place] [address] Performed By: #### A LLBG ####[facility] LABORATORYCLIA [id number] [address] Calcium.ionized (BldV) [Mass/Vol] 1.18 mmol/L Normal 1.08-1.30 [facility] Comment on above: Order Comment: Speci men Type: ARTERIAL BLOOD SPECIMENOrdering Facility: [facility] Address: [address] [place] [address] Performed By: #### A LLBG ####[facility] LABORATORYCLIA [id number] [address] Calcium.ionized adjusted to pH 7.4 (BldA) [Moles/Vol] 1.20 mmol/L Normal 1.08-1.30 [facility] Comment on above: Order Comment: Speci men Type: ARTERIAL BLOOD SPECIMENOrdering Facility: [facility] Address: [address] [place] [address] Performed By: #### A LLBG ####[facility] SERVICESCLIA [id number] [address] Carboxyhemoglobin (BldA) [Mass fraction] 1.2 % Normal 0.0-2.0 [facility] Comment on above: Order Comment: Speci men Type: ARTERIAL BLOOD SPECIMENOrdering Facility: [facility] Address: [address] [place] [address] Result Comment: Carb oxyhemoglobin Reference Range for Smokers: 2.0-8.0% Performed By: #### A LLBG ####[facility] LABORATORYCLIA [id number] [address] [facility] Chloride [Moles/Vol] 109 mmol/L Normal 102-109 [facility] Comment on above: Order Comment: Speci men Type: ARTERIAL BLOOD SPECIMENOrdering Facility: [facility] Address: [address] [place] [address] Performed By: #### A LLBG ####[facility] LABORATORYCLIA [id number] [address] [place] CO2 (Bld) [Partial pressure] 38 mm Hg Normal 36-46 [facility] Comment on above: Order Comment: Speci men Type: ARTERIAL BLOOD SPECIMENOrdering Facility: [facility] Address: [address] [place] [address] Performed By: #### A LLBG ####[facility]ATORYCLIA [id number] [address] [place] CO2 [Moles/Vol] 22 mmol/L Normal 22-28 [facility] Comment on above: Order Comment: Speci men Type: ARTERIAL BLOOD SPECIMENOrdering Facility: [facility] Address: [address] [place] [address] Performed By: #### A LLBG ####[facility]ATORYCLIA [id number] [address] CO2 adjusted to patient's actual temperature (Bld) [Partial pressure] 36 mmHg Normal 36-46 [facility] Comment on above: Order Comment: Speci men Type: ARTERIAL BLOOD SPECIMENOrdering Facility: [facility] Address: [address] [place] [address] Performed By: #### A LLBG ####[facility]ORATORYCLIA [id number] [address] FIO2 30 % Normal [facility] Comment on above: Order Comment: Speci men Type: ARTERIAL BLOOD SPECIMENOrdering Facility: [facility] Address: [address] [place] [address] Performed By: #### A LLBG ####[facility]ATORYCLIA [id number] [address] [place] Glucose [Mass/Vol] 123 mg/dL High 60-105 [facility] Comment on above: Order Comment: Speci men Type: ARTERIAL BLOOD SPECIMENOrdering Facility: [facility] Address: [address] [place] [address] Performed By: #### A LLBG ####[facility]ATORYCLIA [id number] [address] [place] HCO3 (Bld) [Moles/Vol] 24 mmol/L Normal 22-26 [facility] Comment on above: Order Comment: Speci men Type: ARTERIAL BLOOD SPECIMENOrdering Facility: [facility] Address: [address] [place] [address] Performed By: #### A LLBG ####[facility] LABORATORYCLIA [id number] [address] [place] Hematocrit (Bld) [Volume fraction] 30.4 % Low 36.0-46.0 [facility] Comment on above: Order Comment: Speci men Type: ARTERIAL BLOOD SPECIMENOrdering Facility: [facility] Address: [address] [place] [address] Performed By: #### A LLBG ####[facility] LABORATORYCLIA [id number] [address] [place] Hemoglobin (Bld) [Mass/Vol] 9.8 g/dL Low 11.5-15.5 [facility] Comment on above: Order Comment: Speci men Type: ARTERIAL BLOOD SPECIMENOrdering Facility: [facility] Address: [address] [place] [address] Performed By: #### A LLBG ####[facility] LABORATORYCLIA [id number] [address] [place] Lactate [Moles/Vol] 0.7 mmol/L Normal 0.5-2.2 [facility] Comment on above: Order Comment: Speci men Type: ARTERIAL BLOOD SPECIMENOrdering Facility: [facility] Address: [address] [place] [address] Performed By: #### A LLBG ####[facility] LABORATORYCLIA [id number] [address] [place] Methemoglobin (Bld) [Mass fraction] % Normal 0.0-1.5 [facility] Comment on above: Order Comment: Speci men Type: ARTERIAL BLOOD SPECIMENOrdering Facility: [facility] Address: [address] [place] [address] Performed By: #### A LLBG ####[facility]ORATORYCLIA [id number] [address] [place] O2 THERAPY Ventilator Normal [facility] Comment on above: Order Comment: Speci men Type: ARTERIAL BLOOD SPECIMENOrdering Facility: [facility] Address: [address] [place] [address] Performed By: #### A LLBG ####[facility] LABORATORYCLIA [id number] [address] [place] Oxygen (Bld) [Partial pressure] 94 mm Hg Normal 85-95 [facility] Comment on above: Order Comment: Speci men Type: ARTERIAL BLOOD SPECIMENOrdering Facility: [facility] Address: [address] [place] [address] Performed By: #### A LLBG ####[facility] LABORATORYCLIA [id number] [address] Oxygen adjusted to patient's actual temperature (Bld) [Partial pressure] 89 mmHg Normal 85-95 [facility] Comment on above: Order Comment: Speci men Type: ARTERIAL BLOOD SPECIMENOrdering Facility: [facility] Address: [address] [place] [address] Performed By: #### A LLBG ####[facility] LABORATORYCLIA [id number] [address] Oxyhemoglobin (BldA) [Mass fraction] 95 % Normal 95-98 [facility] Comment on above: Order Comment: Speci men Type: ARTERIAL BLOOD SPECIMENOrdering Facility: [facility] Address: [address] [place] [address] Performed By: #### A LLBG ####[facility]ORATORYCLIA [id number] [address] [place] PEEP/CPAP 5 cmH2O Normal [facility] Comment on above: Order Comment: Speci men Type: ARTERIAL BLOOD SPECIMENOrdering Facility: [facility] Address: [address] [place] [address] Result Comment: CPAP Performed By: #### A LLBG ####[facility]ATORYCLIA [id number] [address] [place] pH (Bld) 7.42 [pH] Normal 7.35-7.45 [facility] Comment on above: Order Comment: Speci men Type: ARTERIAL BLOOD SPECIMENOrdering Facility: [facility] Address: [address] [place] [address] Performed By: #### A LLBG ####[facility] LABORATORYCLIA [id number] [address] pH adjusted to patient's actual temperature (Bld) 7.44 Normal 7.35-7.45 [facility] Comment on above: Order Comment: Speci men Type: ARTERIAL BLOOD SPECIMENOrdering Facility: [facility] Address: [address] [place] [address] Performed By: #### A LLBG ####[facility] LABORATORYCLIA [id number] [address] [place] Potassium [Moles/Vol] 4.1 mmol/L Normal 3.5-5.0 [facility] Comment on above: Order Comment: Speci men Type: ARTERIAL BLOOD SPECIMENOrdering Facility: [facility] Address: [address] [place] [address] Performed By: #### A LLBG ####[facility] LABORATORYCLIA [id number] [address] [place] Sodium [Moles/Vol] 139 mmol/L Normal 136-144 [facility] Comment on above: Order Comment: Speci men Type: ARTERIAL BLOOD SPECIMENOrdering Facility: [facility] Address: [address] [place] [address] Performed By: #### A LLBG ####[facility] LABORATORYCLIA [id number] [place] [address] [place] Basic metabolic 2000 panelon 12-27-2022 Anion gap [Moles/Vol] 7 mmol/L Low 9-18 [facility] Comment on above: Order Comment: Speci men Type: BLOOD SPECIMENOrdering Facility: [facility] Address: [address] [place] [address] Performed By: #### 2 4321-2, , 2776-10 ####[facility] LABORATORYCLIA [id number] [place] [address] [place] Calcium [Mass/Vol] 8.8 mg/dL Normal 8.5-10.2 [facility] Comment on above: Order Comment: Speci men Type: BLOOD SPECIMENOrdering Facility: [facility] Address: [address] [place] [address] Performed By: #### 2 4321-2, , 2776-10 ####[facility] LABORATORYCLIA [id number] [place] [address] [place] Chloride [Moles/Vol] 107 mmol/L High 97-105 [facility] Comment on above: Order Comment: Speci men Type: BLOOD SPECIMENOrdering Facility: [facility] Address: [address] [place] [address] Performed By: #### 2 4320-2, , 2776-10 ####[facility] LABORATORYCLIA [id number] [place] [address] [place] CO2 [Moles/Vol] 23 mmol/L Normal 22-30 [facility] Comment on above: Order Comment: Speci men Type: BLOOD SPECIMENOrdering Facility: [facility] Address: [address] [place] [address] Performed By: #### 2 4320-2, , 2776-10 ####[facility] LABORATORYCLIA [id number] [place] [address] [place] Creatinine [Mass/Vol] 0.45 mg/dL Low 0.58-0.96 [facility] Comment on above: Order Comment: Speci men Type: BLOOD SPECIMENOrdering Facility: [facility] Address: [address] [place] [address] Performed By: #### 2 4321-2, , 2776-10 ####[facility] LABORATORYCLIA [id number] [place] [address] [place] ESTIMATED GLOMERULAR FILTRATION RATE 103 mL/min/1.73m??? Normal >=60 [facility] Comment on above: Order Comment: Rejicy lujan Type: BLOOD SPECIMENOrdering Facility: [facility] Address: [address] [place], [place] [address] Result Comment: Mariely mated Glomerular Filtration Rate [...] Performed By: #### 2 4321-2, , 2776-10 ####[facility] SERVICESCLIA [id number] [place] [address] [place] Glucose [Mass/Vol] 106 mg/dL High 74-99 [facility] Comment on above: Order Comment: Cary lujan Type: BLOOD SPECIMENOrdering Facility: [facility] Address: [address] [place] [address] Result Comment: The [place] [employer] (ADA) provides guidance for cutoff [...] Standards of Medical Care in Diabetes 2016, [place] [employer]. Diabetes Care. 2016.39(Suppl 1). Performed By: #### 2 4321-2, , 2776-10 ####[facility] LABORATORYCLIA [id number] [place] [id number] [place] Potassium [Moles/Vol] 4.3 mmol/L Normal 3.7-5.1 [facility] Comment on above: Order Comment: Speci men Type: BLOOD SPECIMENOrdering Facility: [facility] Address: [address] [address] Performed By: #### 2 4321-2, , 2776-10 ####[facility] LABORATORYCLIA [id number] [address] Sodium [Moles/Vol] 137 mmol/L Normal 136-144 [facility] [facility] Comment on above: Order Comment: Speci men Type: BLOOD SPECIMENOrdering Facility: [facility] Address: [address] [place] [address] Performed By: #### 2 4321-2, , 2776-10 ####[facility] LABORATORYCLIA [id number] [address] STATES [facility] Urea nitrogen [Mass/Vol] 7 mg/dL Normal 7-21 [facility] Comment on above: Order Comment: Speci men Type: BLOOD SPECIMENOrdering Facility: [facility] Address: [address] [place] [address] Performed By: #### 2 4321-2, , 2776-10 ####[facility] LABORATORYCLIA [id number] [address] CBC panel Auto (Bld)on 12-27 Erythrocyte distribution width (RBC) [Ratio] 14.6 % Normal 11.5-15.0 [facility] Comment on above: Order Comment: Speci men Type: BLOOD SPECIMENOrdering Facility: [facility] Address: [address] [place] [address] Performed By: #### 5 8410-2 ####[facility] LABORATORYCLIA [id number] [address] Hematocrit (Bld) [Volume fraction] 29.7 % Low 36.0-46.0 [facility] Comment on above: Order Comment: Speci men Type: BLOOD SPECIMENOrdering Facility: [facility] Address: [address] [place] [address] Performed By: #### 5 8410-2 ####[facility] LABORATORYCLIA [id number] [address] Hemoglobin (Bld) [Mass/Vol] 9.6 g/dL Low 11.5-15.5 [facility] Comment on above: Order Comment: Speci men Type: BLOOD SPECIMENOrdering Facility: [facility] Address: [address] [place] [address] Performed By: #### 5 8410-2 ####[facility] LABORATORYCLIA [id number] [address] MCH (RBC) [Entitic mass] 32.4 pg Normal 26.0-34.0 [facility] Comment on above: Order Comment: Speci men Type: BLOOD SPECIMENOrdering Facility: [facility] Address: [address] [place] [address] Performed By: #### 5 8410-2 ####[facility] LABORATORYCLIA [id number] [address] MCHC (RBC) [Mass/Vol] 32.3 g/dL Normal 30.5-36.0 [facility] Comment on above: Order Comment: Speci men Type: BLOOD SPECIMENOrdering Facility: [facility] Address: [address] [place] [address] Performed By: #### 5 8410-2 ####[facility] LABORATORYCLIA [id number] [address] MCV (RBC) [Entitic vol] 100.3 fL High 80.0-100.0 [facility] Comment on above: Order Comment: Speci men Type: BLOOD SPECIMENOrdering Facility: [facility] Address: [address] [place] [address] Performed By: #### 5 8410-2 ####[facility] LABORATORYCLIA [id number] [address] Nucleated RBC (Bld) [#/Vol] 10*3/uL Normal <0.01 [facility] Comment on above: Order Comment: Speci men Type: BLOOD SPECIMENOrdering Facility: [facility] Address: [address] [address] Performed By: #### 5 8410-2 ####[facility] LABORATORYCLIA [id number] [place] [address] [place] Platelet mean volume (Bld) [Entitic vol] 11.0 fL Normal 9.0-12.7 [facility] Comment on above: Order Comment: Speci men Type: BLOOD SPECIMENOrdering Facility: [facility] Address: [address] [place] [address] Performed By: #### 5 8410-2 ####[facility] LABORATORYCLIA [id number] [address] [place] Platelets (Bld) [#/Vol] 330 10*3/uL Normal 150-400 [facility] Comment on above: Order Comment: Speci men Type: BLOOD SPECIMENOrdering Facility: [facility] Address: [address] [place] [address] Performed By: #### 5 8410-2 ####[facility] LABORATORYCLIA [id number] [place] [address] [place] RBC (Bld) [#/Vol] 2.96 10*6/uL Low 3.90-5.20 [facility] Comment on above: Order Comment: Speci men Type: BLOOD SPECIMENOrdering Facility: [facility] Address: [address] [place] [address] Performed By: #### 5 8410-2 ####[facility] LABORATORYCLIA [id number] [place] [address] [place] WBC (Bld) [#/Vol] 9.89 10*3/uL Normal 3.70-11.00 [facility] Comment on above: Order Comment: Speci men Type: BLOOD SPECIMENOrdering Facility: [facility] Address: [address] [place] [address] Performed By: #### 5 8410-2 ####[facility] LABORATORYCLIA [id number] [address] [place] Magnesium SerPl-ncon 12-27 Magnesium [Mass/Vol] 1.6 mg/dL Low 1.7-2.3 [facility] Comment on above: Order Comment: Speci men Type: BLOOD SPECIMENOrdering Facility: [facility] Address: [address] [place] [address] Performed By: #### 2 4321-2, , 2776-10 ####[facility] LABORATORYCLIA [id number] [address] [place] NURSING PROGon 12-27-2022 NURSING PROG Normal [facility] NUTRITIONon 12-27-2022 NUTRITION Normal [facility] Phenobarb SerPl-mCncon 12-27 PHENobarbital [Mass/Vol] 27.9 ug/mL Normal 10.0-40.0 [facility] Comment on above: Order Comment: Speci men Type: BLOOD SPECIMENOrdering Facility: [facility] Address: [address] [place] [address] Result Comment: Refe rence ranges and high/low indicator flags are provided as general guidelines only. The treating physician must determine appropriate target levels/dosing based on the specific clinical situation. Performed By: #### 3 948-7 ####[facility] LABORATORYCLIA [id number] [address] [place] Phosphate SerPl-ncon 12-27 Phosphate [Mass/Vol] 3.5 mg/dL Normal 2.7-4.8 [facility] Comment on above: Order Comment: Speci men Type: BLOOD SPECIMENOrdering Facility: [facility] Address: [address] [place] [address] Performed By: #### 2 4321-2, , 2776-10 ####[facility] LABORATORYCLIA [id number] [place] [address] [place] ALLIED HEALTHon 12-26-2022 ALLIED HEALTH Normal [facility] ARTERIAL BLOOD GASESon 12-26 Base deficit (BldA) [Moles/Vol] -1 mmol/L Normal -2-0 [facility] Comment on above: Order Comment: Speci men Type: ARTERIAL BLOOD SPECIMENOrdering Facility: [facility] Address: [address] [place] [address] Performed By: #### A LLBG ####[facility] LABORATORYCLIA [id number] [address] Body temperature 97.52 [degF] Normal [facility] Comment on above: Order Comment: Speci men Type: ARTERIAL BLOOD SPECIMENOrdering Facility: [facility] Address: [address] [place] [address] Performed By: #### A LLBG ####[facility] LABORATORYCLIA [id number] [address] STATES OF [facility] Calcium.ionized (BldV) [Mass/Vol] 1.20 mmol/L Normal 1.08-1.30 [facility] Comment on above: Order Comment: Speci men Type: ARTERIAL BLOOD SPECIMENOrdering Facility: [facility] Address: [address] [place] [address] Performed By: #### A LLBG ####[facility]ORATORYCLIA [id number] [address] Calcium.ionized adjusted to pH 7.4 (BldA) [Moles/Vol] 1.21 mmol/L Normal 1.08-1.30 [facility] Comment on above: Order Comment: Speci men Type: ARTERIAL BLOOD SPECIMENOrdering Facility: [facility] Address: [address] [place] [address] Performed By: #### A LLBG ####[facility] LABORATORYCLIA [id number] [address] Carboxyhemoglobin (BldA) [Mass fraction] 1.2 % Normal 0.0-2.0 [facility] Comment on above: Order Comment: Speci men Type: ARTERIAL BLOOD SPECIMENOrdering Facility: [facility] Address: [address] [place] [address] Result Comment: Carb oxyhemoglobin Reference Range for Smokers: 2.0-8.0% Performed By: #### A LLBG ####[facility]ORATORYCLIA [id number] [place] [address] [place] Chloride [Moles/Vol] 111 mmol/L High 102-109 [facility] Comment on above: Order Comment: Speci men Type: ARTERIAL BLOOD SPECIMENOrdering Facility: [facility] Address: [address] [place] [address] Performed By: #### A LLBG ####[facility]ORATORYCLIA [id number] [address] [place] CO2 (Bld) [Partial pressure] 35 mm Hg Low 36-46 [facility] Comment on above: Order Comment: Speci men Type: ARTERIAL BLOOD SPECIMENOrdering Facility: [facility] Address: [address] [place] [address] Performed By: #### A LLBG ####[facility] LABORATORYCLIA [id number] [address] [place] CO2 [Moles/Vol] 21 mmol/L Low 22-28 [facility] Comment on above: Order Comment: Speci men Type: ARTERIAL BLOOD SPECIMENOrdering Facility: [facility] Address: [address] [place] [address] Performed By: #### A LLBG ####[facility]ORATORYCLIA [id number] [address] [place] CO2 adjusted to patient's actual temperature (Bld) [Partial pressure] 34 mmHg Low 36-46 [facility] Comment on above: Order Comment: Speci men Type: ARTERIAL BLOOD SPECIMENOrdering Facility: [facility] Address: [address] [place] [address] Performed By: #### A LLBG ####[facility]ORATORYCLIA [id number] [place] [address] [place] Glucose [Mass/Vol] 135 mg/dL High 60-105 [facility] Comment on above: Order Comment: Speci men Type: ARTERIAL BLOOD SPECIMENOrdering Facility: [facility] Address: [address] [place] [address] Performed By: #### A LLBG ####[facility] LABORATORYCLIA [id number] [address] [place] HCO3 (Bld) [Moles/Vol] 22 mmol/L Normal 22-26 [facility] Comment on above: Order Comment: Speci men Type: ARTERIAL BLOOD SPECIMENOrdering Facility: [facility] Address: [address] [place] [address] Performed By: #### A LLBG ####[facility] LABORATORYCLIA [id number] [address] [place] Hematocrit (Bld) [Volume fraction] 29.7 % Low 36.0-46.0 [facility] Comment on above: Order Comment: Speci men Type: ARTERIAL BLOOD SPECIMENOrdering Facility: [facility] Address: [address] [place] [address] Performed By: #### A LLBG ####[facility] LABORATORYCLIA [id number] [address] [place] Hemoglobin (Bld) [Mass/Vol] 9.6 g/dL Low 11.5-15.5 [facility] Comment on above: Order Comment: Speci men Type: ARTERIAL BLOOD SPECIMENOrdering Facility: [facility] Address: [address] [place] [address] Performed By: #### A LLBG ####[facility] LABORATORYCLIA [id number] [address] [place] Lactate [Moles/Vol] 1.1 mmol/L Normal 0.5-2.2 [facility] Comment on above: Order Comment: Speci men Type: ARTERIAL BLOOD SPECIMENOrdering Facility: [facility] Address: [address] [place] [address] Performed By: #### A LLBG ####[facility] LABORATORYCLIA [id number] [address] [place] Methemoglobin (Bld) [Mass fraction] % Normal 0.0-1.5 [facility] Comment on above: Order Comment: Speci men Type: ARTERIAL BLOOD SPECIMENOrdering Facility: [facility] Address: [address] [place] [address] Performed By: #### A LLBG ####[facility]ATORYCLIA [id number] [address] O2 THERAPY Ventilator Normal [facility] Comment on above: Order Comment: Speci men Type: ARTERIAL BLOOD SPECIMENOrdering Facility: [facility] Address: [address] [place] [address] Performed By: #### A LLBG ####[facility] LABORATORYCLIA [id number] [address] Oxygen (Bld) [Partial pressure] 90 mm Hg Normal 85-95 [facility] Comment on above: Order Comment: Speci men Type: ARTERIAL BLOOD SPECIMENOrdering Facility: [facility] Address: [address] [place] [address] Performed By: #### A LLBG ####[facility] LABORATORYCLIA [id number] [address] Oxygen adjusted to patient's actual temperature (Bld) [Partial pressure] 87 mmHg Normal 85-95 [facility] Comment on above: Order Comment: Speci men Type: ARTERIAL BLOOD SPECIMENOrdering Facility: [facility] Address: [address] [place] [address] Performed By: #### A LLBG ####[facility]ORATORYCLIA [id number] [address] [place] Oxyhemoglobin (BldA) [Mass fraction] 95 % Normal 95-98 [facility] Comment on above: Order Comment: Speci men Type: ARTERIAL BLOOD SPECIMENOrdering Facility: [facility] Address: [address] [place] [address] Performed By: #### A LLBG ####[facility]ORATORYCLIA [id number] [place] [address] [place] pH (Bld) 7.42 [pH] Normal 7.35-7.45 [facility] Comment on above: Order Comment: Speci men Type: ARTERIAL BLOOD SPECIMENOrdering Facility: [facility] Address: [address] [place] [address] Performed By: #### A LLBG ####[facility] LABORATORYCLIA [id number] [address] [place] pH adjusted to patient's actual temperature (Bld) 7.43 Normal 7.35-7.45 [facility] Comment on above: Order Comment: Speci men Type: ARTERIAL BLOOD SPECIMENOrdering Facility: [facility] Address: [address] [place] [address] Performed By: #### A LLBG ####[facility]ORATORYCLIA [id number] [address] [place] Potassium [Moles/Vol] 3.9 mmol/L Normal 3.5-5.0 [facility] Comment on above: Order Comment: Speci men Type: ARTERIAL BLOOD SPECIMENOrdering Facility: [facility] Address: [address] [place] [address] Performed By: #### A LLBG ####[facility]ORATORYCLIA [id number] [address] [place] Sodium [Moles/Vol] 137 mmol/L Normal 136-144 [facility] Comment on above: Order Comment: Speci men Type: ARTERIAL BLOOD SPECIMENOrdering Facility: [facility] Address: [address] [place] [address] Performed By: #### A LLBG ####[facility]ORATORYCLIA [id number] [place] [address] [place] Basic metabolic 2000 panelon 12-26-2022 Anion gap [Moles/Vol] 6 mmol/L Low 9-18 [facility] Comment on above: Order Comment: Speci men Type: BLOOD SPECIMENOrdering Facility: [facility] Address: [address] [place] [address] Performed By: #### 2 4321-2, , 2776-10 ####[facility] LABORATORYCLIA [id number] [place] [address] [place] Calcium [Mass/Vol] 8.5 mg/dL Normal 8.5-10.2 [facility] Comment on above: Order Comment: Speci men Type: BLOOD SPECIMENOrdering Facility: [facility] Address: [address] [place] [address] Performed By: #### 2 4321-2, , 2776-10 ####[facility] LABORATORYCLIA [id number] [place] [address] [place] Chloride [Moles/Vol] 110 mmol/L High 97-105 [facility] Comment on above: Order Comment: Speci men Type: BLOOD SPECIMENOrdering Facility: [facility] Address: [address] [place] [address] Performed By: #### 2 4320-2, , 2776-10 ####[facility] LABORATORYCLIA [id number] [place] [address] [place] CO2 [Moles/Vol] 22 mmol/L Normal 22-30 [facility] Comment on above: Order Comment: Speci men Type: BLOOD SPECIMENOrdering Facility: [facility] Address: [address] [place] [address] Performed By: #### 2 4321-2, , 2776-10 ####[facility]ORATORYCLIA [id number] [place] [address] [place] Creatinine [Mass/Vol] 0.46 mg/dL Low 0.58-0.96 [facility] Comment on above: Order Comment: Speci men Type: BLOOD SPECIMENOrdering Facility: [facility] Address: [address] [place] [address] Performed By: #### 2 4321-2, , 2776-10 ####[facility] LABORATORYCLIA [id number] [address] [place] ESTIMATED GLOMERULAR FILTRATION RATE 102 mL/min/1.73m??? Normal >=60 [facility] Comment on above: Order Comment: Cary lujan Type: BLOOD SPECIMENOrdering Facility: [facility] Address: [address] [place], [place] [address] Result Comment: Mariely mated Glomerular Filtration Rate [...] actual GFR. Performed By: #### 2 4321-2, 98520-0, 2776-10 ####[facility] SERVICESCLIA [id number] [place] [address] [place] Glucose [Mass/Vol] 111 mg/dL High 74-99 [facility] Comment on above: Order Comment: Cary lujan Type: BLOOD SPECIMENOrdering Facility: [facility] Address: [address] [place] [address] Result Comment: The [place] [employer] (ADA) provides guidance for cutoff [...] Standards of Medical Care in Diabetes 2016, [place] [employer]. Diabetes Care. 2016.39(Suppl 1). Performed By: #### 2 4321-2, 77737-0, 2776-10 ####[facility] SERVICESCLIA [id number] [place] [id number] [place] Potassium [Moles/Vol] 4.1 mmol/L Normal 3.7-5.1 [facility] Comment on above: Order Comment: Speci men Type: BLOOD SPECIMENOrdering Facility: [facility] Address: [address] [place] [address] Performed By: #### 2 4321-2, , 2776-10 ####[facility] LABORATORYCLIA [id number] [address] STATES [facility] Sodium [Moles/Vol] 138 mmol/L Normal 136-144 [facility] Comment on above: Order Comment: Speci men Type: BLOOD SPECIMENOrdering Facility: [facility] Address: [address] [place] [address] Performed By: #### 2 4321-2, , 2776-10 ####[facility] LABORATORYCLIA [id number] [address] [place] Urea nitrogen [Mass/Vol] 7 mg/dL Normal 7-21 [facility] Comment on above: Order Comment: Speci men Type: BLOOD SPECIMENOrdering Facility: [facility] Address: [address] [place] [address] Performed By: #### 2 4321-2, , 2776-10 ####[facility] LABORATORYCLIA [id number] [address] STATES OF [facility] CASE MANAGEMon 12-26-2022 CASE MANAGEM Normal [facility] CBC panel Auto (Bld)on 12-26 Erythrocyte distribution width (RBC) [Ratio] 14.6 % Normal 11.5-15.0 [facility] Comment on above: Order Comment: Speci men Type: BLOOD SPECIMENOrdering Facility: [facility] Address: [address] [place] [address] Performed By: #### 5 8410-2 ####[facility] LABORATORYCLIA [id number] [address] [place] [facility] Hematocrit (Bld) [Volume fraction] 29.8 % Low 36.0-46.0 [facility] Comment on above: Order Comment: Speci men Type: BLOOD SPECIMENOrdering Facility: [facility] Address: [address] [place], [place] [address] Performed By: #### 5 8410-2 ####[facility] LABORATORYCLIA [id number] [address] Hemoglobin (Bld) [Mass/Vol] 9.3 g/dL Low 11.5-15.5 [facility] Comment on above: Order Comment: Speci men Type: BLOOD SPECIMENOrdering Facility: [facility] Address: [address] [place] [address] Performed By: #### 5 8410-2 ####[facility] LABORATORYCLIA [id number] [address] MCH (RBC) [Entitic mass] 32.0 pg Normal 26.0-34.0 [facility] Comment on above: Order Comment: Speci men Type: BLOOD SPECIMENOrdering Facility: [facility] Address: [address] [place] [address] Performed By: #### 5 8410-2 ####[facility] LABORATORYCLIA [id number] [address] MCHC (RBC) [Mass/Vol] 31.2 g/dL Normal 30.5-36.0 [facility] Comment on above: Order Comment: Speci men Type: BLOOD SPECIMENOrdering Facility: [facility] Address: [address] [place] [address] Performed By: #### 5 8410-2 ####[facility] LABORATORYCLIA [id number] [address] [place] [facility] MCV (RBC) [Entitic vol] 102.4 fL High 80.0-100.0 [facility] Comment on above: Order Comment: Speci men Type: BLOOD SPECIMENOrdering Facility: [facility] Address: [address] [place] [address] Performed By: #### 5 8410-2 ####[facility] LABORATORYCLIA [id number] [address] Nucleated RBC (Bld) [#/Vol] 10*3/uL Normal <0.01 [facility] Comment on above: Order Comment: Speci men Type: BLOOD SPECIMENOrdering Facility: [facility] Address: [address] [address] Performed By: #### 5 8410-2 ####[facility] LABORATORYCLIA [id number] [address] [place] Platelet mean volume (Bld) [Entitic vol] 10.6 fL Normal 9.0-12.7 [facility] Comment on above: Order Comment: Speci men Type: BLOOD SPECIMENOrdering Facility: [facility] Address: [address] [address] Performed By: #### 5 8410-2 ####[facility] LABORATORYCLIA [id number] [address] [place] Platelets (Bld) [#/Vol] 313 10*3/uL Normal 150-400 [facility] Comment on above: Order Comment: Speci men Type: BLOOD SPECIMENOrdering Facility: [facility] Address: [address] [address] Performed By: #### 5 8410-2 ####[facility] LABORATORYCLIA [id number] [place] [address] [place] RBC (Bld) [#/Vol] 2.91 10*6/uL Low 3.90-5.20 [facility] Comment on above: Order Comment: Speci men Type: BLOOD SPECIMENOrdering Facility: [facility] Address: [address] [address] Performed By: #### 5 8410-2 ####[facility] LABORATORYCLIA [id number] [place] [address] [place] WBC (Bld) [#/Vol] 8.82 10*3/uL Normal 3.70-11.00 [facility] Comment on above: Order Comment: Speci men Type: BLOOD SPECIMENOrdering Facility: [facility] Address: [address] [address] Performed By: #### 5 8410-2 ####[facility] LABORATORYCLIA [id number] [address] [place] Magnesium SerPl-ncon 12-26 Magnesium [Mass/Vol] 1.5 mg/dL Low 1.7-2.3 [facility] Comment on above: Order Comment: Speci men Type: BLOOD SPECIMENOrdering Facility: [facility] Address: [address] [place] [address] Performed By: #### 2 4321-2, , 2776-10 ####[facility] LABORATORYCLIA [id number] [place] [address] [place] Phosphate SerPl-mCncon 12-26 Phosphate [Mass/Vol] 3.6 mg/dL Normal 2.7-4.8 [facility] Comment on above: Order Comment: Speci men Type: BLOOD SPECIMENOrdering Facility: [facility] Address: [address] [place] [address] Performed By: #### 2 4321-2, , 2776-10 ####[facility] LABORATORYCLIA [id number] [place] [address] [place] Basic metabolic 2000 panelon 12-25-2022 Anion gap [Moles/Vol] 8 mmol/L Low 9-18 [facility] Comment on above: Order Comment: Speci men Type: BLOOD SPECIMENOrdering Facility: [facility] Address: [address] [place] [address] Performed By: #### 2 4321-2, 2776-10, ####[facility] LABORATORYCLIA [id number] [place] [address] [place] Calcium [Mass/Vol] 8.3 mg/dL Low 8.5-10.2 [facility] Comment on above: Order Comment: Speci men Type: BLOOD SPECIMENOrdering Facility: [facility] Address: [address] [place] [address] Performed By: #### 2 4321-2, 2776-10, ####[facility] LABORATORYCLIA [id number] [address] [place] Chloride [Moles/Vol] 110 mmol/L High 97-105 [facility] Comment on above: Order Comment: Speci men Type: BLOOD SPECIMENOrdering Facility: [facility] Address: [address] [place] [address] Performed By: #### 2 4321-2, 27704-13, ####[facility] LABORATORYCLIA [id number] [place] [address] [facility] CO2 [Moles/Vol] 21 mmol/L Low 22-30 [facility] Comment on above: Order Comment: Speci men Type: BLOOD SPECIMENOrdering Facility: [facility] Address: [address] [place] [address] Performed By: #### 2 4321-2, 27704-13, ####[facility] SERVICESCLIA [id number] [address] Creatinine [Mass/Vol] 0.54 mg/dL Low 0.58-0.96 [facility] Comment on above: Order Comment: Speci men Type: BLOOD SPECIMENOrdering Facility: [facility] Address: [address] [place] [address] Performed By: #### 2 4321-2, 27704-13, ####[facility]ITAL[facility] [id number] [address] ESTIMATED GLOMERULAR FILTRATION RATE 99 mL/min/1.73m??? Normal >=60 [facility] Comment on above: Order Comment: Speci men Type: BLOOD SPECIMENOrdering Facility: [facility] Address: [address] [place] [address] Result Comment: Mariely mated Glomerular Filtration Rate [...] actual GFR. Performed By: #### 2 4321-2, 2777, ####[facility] LABORATORYCLIA [id number] [place] [address] [place] Glucose [Mass/Vol] 105 mg/dL High 74-99 [facility] Comment on above: Order Comment: Cary lujan Type: BLOOD SPECIMENOrdering Facility: [facility] Address: [address] [place], [place] [address] Result Comment: The [place] [employer] (ADA) provides guidance for cutoff [...] Standards of Medical Care in Diabetes 2016, [place] [employer]. Diabetes Care. 2016.39(Suppl 1). Performed By: #### 2 4321-2, 2776-10, ####[facility] LABORATORYCLIA [id number] [place] [address] [place] Potassium [Moles/Vol] 4.0 mmol/L Normal 3.7-5.1 [facility] Comment on above: Order Comment: Cary lujan Type: BLOOD SPECIMENOrdering Facility: [facility] Address: [address] [place] [address] Performed By: #### 2 4321-2, 27704-13, ####[facility] LABORATORYCLIA [id number] [place] [address] [place] Sodium [Moles/Vol] 139 mmol/L Normal 136-144 [facility] Comment on above: Order Comment: Cary lujan Type: BLOOD SPECIMENOrdering Facility: [facility] Address: [address] [place] [address] Performed By: #### 2 4321-2, 2776-, ####[facility] LABORATORYCLIA [id number] [address] STATES [facility] Urea nitrogen [Mass/Vol] 8 mg/dL Normal 7-21 [facility] Comment on above: Order Comment: Speci men Type: BLOOD SPECIMENOrdering Facility: [facility] Address: [address] [place] [address] Performed By: #### 2 4321-2, 2776-10, ####[facility] LABORATORYCLIA [id number] [address] [place] CBC panel Auto (Bld)on 12-25 Erythrocyte distribution width (RBC) [Ratio] 14.9 % Normal 11.5-15.0 [facility] Comment on above: Order Comment: Speci men Type: BLOOD SPECIMENOrdering Facility: [facility] Address: [address] [place] [address] Performed By: #### 5 8410-2 ####[facility] LABORATORYCLIA [id number] [address] [place] Hematocrit (Bld) [Volume fraction] 28.3 % Low 36.0-46.0 [facility] Comment on above: Order Comment: Speci men Type: BLOOD SPECIMENOrdering Facility: [facility] Address: [address] [place] [address] Performed By: #### 5 8410-2 ####[facility] LABORATORYCLIA [id number] [address] [place] Hemoglobin (Bld) [Mass/Vol] 9.0 g/dL Low 11.5-15.5 [facility] Comment on above: Order Comment: Speci men Type: BLOOD SPECIMENOrdering Facility: [facility] Address: [address] [place] [address] Performed By: #### 5 8410-2 ####[facility] LABORATORYCLIA [id number] [address] MCH (RBC) [Entitic mass] 32.0 pg Normal 26.0-34.0 [facility] Comment on above: Order Comment: Speci men Type: BLOOD SPECIMENOrdering Facility: [facility] Address: [address] [place] [address] Performed By: #### 5 8410-2 ####[facility] LABORATORYCLIA [id number] [address] STATES [facility] MCHC (RBC) [Mass/Vol] 31.8 g/dL Normal 30.5-36.0 [facility] Comment on above: Order Comment: Speci men Type: BLOOD SPECIMENOrdering Facility: [facility] Address: [address] [place] [address] Performed By: #### 5 8410-2 ####[facility] LABORATORYCLIA [id number] [address] MCV (RBC) [Entitic vol] 100.7 fL High 80.0-100.0 [facility] Comment on above: Order Comment: Speci men Type: BLOOD SPECIMENOrdering Facility: [facility] Address: [address] [place] [address] Performed By: #### 5 8410-2 ####[facility] LABORATORYCLIA [id number] [address] Nucleated RBC (Bld) [#/Vol] 10*3/uL Normal <0.01 [facility] Comment on above: Order Comment: Speci men Type: BLOOD SPECIMENOrdering Facility: [facility] Address: [address] [place] [address] Performed By: #### 5 8410-2 ####[facility] LABORATORYCLIA [id number] [address] Platelet mean volume (Bld) [Entitic vol] 11.3 fL Normal 9.0-12.7 [facility] Comment on above: Order Comment: Speci men Type: BLOOD SPECIMENOrdering Facility: [facility] Address: [address] [place] [address] Performed By: #### 5 8410-2 ####[facility] LABORATORYCLIA [id number] [address] [facility] Platelets (Bld) [#/Vol] 294 10*3/uL Normal 150-400 [facility] Comment on above: Order Comment: Speci men Type: BLOOD SPECIMENOrdering Facility: [facility] Address: [address] [address] Performed By: #### 5 8410-2 ####[facility] LABORATORYCLIA [id number] [place] [address] [place] RBC (Bld) [#/Vol] 2.81 10*6/uL Low 3.90-5.20 [facility] Comment on above: Order Comment: Speci men Type: BLOOD SPECIMENOrdering Facility: [facility] Address: [address] [place] [address] Performed By: #### 5 8410-2 ####[facility] LABORATORYCLIA [id number] [address] OF [facility] WBC (Bld) [#/Vol] 7.71 10*3/uL Normal 3.70-11.00 [facility] Comment on above: Order Comment: Speci men Type: BLOOD SPECIMENOrdering Facility: [facility] Address: [address] [place] [address] Performed By: #### 5 8410-2 ####[facility] LABORATORYCLIA [id number] [address] CONSULT PROGon 12-25-2022 CONSULT PROG Normal [facility] Magnesium SerPl-mCncon 12-25 Magnesium [Mass/Vol] 1.6 mg/dL Low 1.7-2.3 [facility] Comment on above: Order Comment: Speci men Type: BLOOD SPECIMENOrdering Facility: [facility] Address: [address] [place] [address] Performed By: #### 2 4321-2, 2776-10, ####[facility] LABORATORYCLIA [id number] [place], [place] [address] [place] [address] [place] PT EDon 12-25-2022 PT ED Normal [facility] Phosphate SerPl-mCncon 12-25 Phosphate [Mass/Vol] 3.0 mg/dL Normal 2.7-4.8 [facility] Comment on above: Order Comment: Speci men Type: BLOOD SPECIMENOrdering Facility: [facility] Address: [address] [place] [address] Performed By: #### 2 4321-2, 2776-, ####[facility] LABORATORYCLIA [id number] [address] Bacteria Spec Resp Culton Bacteria identified Respiratory culture Nom (Unsp spec) CULTURE, RESPIRATORY: Rare Normal respiratory jorge present ORGANISM ID: 1 Rare Acinetobacter baumannii complex Refer to specimen collected on 12/21/22 GRAM STAIN: No organisms seen Many Polymorphonuclear leukocytes Abnormal [facility] Comment on above: Performed By: #### 3 2355-0 ####[facility] LABORATORYCLIA [id number] [address] [place] Basic metabolic 2000 panelon 12-24-2022 Anion gap [Moles/Vol] 8 mmol/L Low 9-18 [facility] Comment on above: Order Comment: Speci men Type: BLOOD SPECIMENOrdering Facility: [facility] Address: [address] [place] [address] Performed By: #### 2 777-1, 10483-5, 48439-9, 3016-3, 3024-7 ####[facility] LABORATORYCLIA [id number] [address] Calcium [Mass/Vol] 8.0 mg/dL Low 8.5-10.2 [facility] Comment on above: Order Comment: Speci men Type: BLOOD SPECIMENOrdering Facility: [facility] Address: [address] [address] Performed By: #### 2 777-1, 02838-1, 27400-1, 3016-3, 3024-7 ####[facility] LABORATORYCLIA [id number] [place] [address] [place] Chloride [Moles/Vol] 110 mmol/L High 97-105 [facility] Comment on above: Order Comment: Speci men Type: BLOOD SPECIMENOrdering Facility: [facility] Address: [address] [place] [address] Performed By: #### 2 777-1, 54340-4, 56667-8, 3016-3, 3024-7 ####[facility] LABORATORYCLIA [id number] [place] [address] [place] CO2 [Moles/Vol] 20 mmol/L Low 22-30 [facility] Comment on above: Order Comment: Speci men Type: BLOOD SPECIMENOrdering Facility: [facility] Address: [address] [place] [address] Performed By: #### 2 777-1, 56318-4, 41756-9, 3016-3, 3024-7 ####[facility] LABORATORYCLIA [id number] [place] [address] [place] Creatinine [Mass/Vol] 0.63 mg/dL Normal 0.58-0.96 [facility] Comment on above: Order Comment: Speci men Type: BLOOD SPECIMENOrdering Facility: [facility] Address: [address] [place] [address] Performed By: #### 2 777-1, 88426-3, 20611-2, 3016-3, 3024-7 ####[facility] LABORATORYCLIA [id number] [address] [place] ESTIMATED GLOMERULAR FILTRATION RATE 95 mL/min/1.73m??? Normal >=60 [facility] Comment on above: Order Comment: Speci men Type: BLOOD SPECIMENOrdering Facility: [facility] Address: [address] [place] [address] Result Comment: Mariely mated Glomerular Filtration Rate [...] actual GFR. Performed By: #### 2 777-1, 42877-3, 86480-6, 3015-3, 7 ####[facility] LABORATORYCLIA [id number] [place] [address] [place] Glucose [Mass/Vol] 111 mg/dL High 74-99 [facility] Comment on above: Order Comment: Cary lujan Type: BLOOD SPECIMENOrdering Facility: [facility] Address: [address] [place], [place] [id number] Result Comment: The [place] [employer] Association (ADA) provides guidance for cutoff [...] Standards of Medical Care in Diabetes 2016, [place] [employer]. Diabetes Care. 2016.39(Suppl 1). Performed By: #### 2 777-1, 64681-6, , 3015-3, 7 ####[facility] LABORATORYCLIA [id number] [place] [address] [place] Potassium [Moles/Vol] 4.2 mmol/L Normal 3.7-5.1 [facility] Comment on above: Order Comment: Cary lujan Type: BLOOD SPECIMENOrdering Facility: [facility] Address: [address] [place] [address] Performed By: #### 2 777-1, 35814-9, , 3015-3, 302-7 ####[facility] LABORATORYCLIA [id number] [address] STATES OF [facility] Sodium [Moles/Vol] 138 mmol/L Normal 136-144 [facility] Comment on above: Order Comment: Speci men Type: BLOOD SPECIMENOrdering Facility: [facility] Address: [address] [place] [address] Performed By: #### 2 777-1, 73186-2, 16074-1, 3015-3, 3023-7 ####[facility] LABORATORYCLIA [id number] [address] [place] Urea nitrogen [Mass/Vol] 9 mg/dL Normal 7-21 [facility] Comment on above: Order Comment: Speci men Type: BLOOD SPECIMENOrdering Facility: [facility] Address: [address] [place] [address] Performed By: #### 2 777-1, 76109-3, 78762-7, 3015-3, 7 ####[facility] LABORATORYCLIA [id number] [address] [place] CASE MANAGEMon 12-24-2022 CASE MANAGEM Normal [facility] CBC panel Auto (Bld)on 12-24 Erythrocyte distribution width (RBC) [Ratio] 15.0 % Normal 11.5-15.0 [facility] Comment on above: Order Comment: Speci men Type: BLOOD SPECIMENOrdering Facility: [facility] Address: [address] [place] [address] Performed By: #### 5 8410-2 ####[facility] LABORATORYCLIA [id number] [address] Hematocrit (Bld) [Volume fraction] 28.9 % Low 36.0-46.0 [facility] Comment on above: Order Comment: Speci men Type: BLOOD SPECIMENOrdering Facility: [facility] Address: [address] [place] [address] Performed By: #### 5 8410-2 ####[facility] LABORATORYCLIA [id number] [address] STATES [place] [facility] Hemoglobin (Bld) [Mass/Vol] 9.1 g/dL Low 11.5-15.5 [facility] Comment on above: Order Comment: Speci men Type: BLOOD SPECIMENOrdering Facility: [facility] Address: [address] [place] [address] Performed By: #### 5 8410-2 ####[facility] LABORATORYCLIA [id number] [address] MCH (RBC) [Entitic mass] 31.9 pg Normal 26.0-34.0 [facility] Comment on above: Order Comment: Speci men Type: BLOOD SPECIMENOrdering Facility: [facility] Address: [address] [place] [address] Performed By: #### 5 8410-2 ####[facility] LABORATORYCLIA [id number] [address] MCHC (RBC) [Mass/Vol] 31.5 g/dL Normal 30.5-36.0 [facility] Comment on above: Order Comment: Speci men Type: BLOOD SPECIMENOrdering Facility: [facility] Address: [address] [place] [address] Performed By: #### 5 8410-2 ####[facility] LABORATORYCLIA [id number] [address] [place] MCV (RBC) [Entitic vol] 101.4 fL High 80.0-100.0 [facility] Comment on above: Order Comment: Speci men Type: BLOOD SPECIMENOrdering Facility: [facility] Address: [address] [place] [address] Performed By: #### 5 8410-2 ####[facility] LABORATORYCLIA [id number] [address] Nucleated RBC (Bld) [#/Vol] 10*3/uL Normal <0.01 [facility] Comment on above: Order Comment: Speci men Type: BLOOD SPECIMENOrdering Facility: [facility] Address: [address] [address] Performed By: #### 5 8410-2 ####[facility] LABORATORYCLIA [id number] [address] Platelet mean volume (Bld) [Entitic vol] 11.6 fL Normal 9.0-12.7 [facility] Comment on above: Order Comment: Speci men Type: BLOOD SPECIMENOrdering Facility: [facility] Address: [address] [place] [address] Performed By: #### 5 8410-2 ####[facility] LABORATORYCLIA [id number] [address] [place] Platelets (Bld) [#/Vol] 284 10*3/uL Normal 150-400 [facility] Comment on above: Order Comment: Speci men Type: BLOOD SPECIMENOrdering Facility: [facility] Address: [address] [place] [address] Performed By: #### 5 8410-2 ####[facility] LABORATORYCLIA [id number] [address] [place] RBC (Bld) [#/Vol] 2.85 10*6/uL Low 3.90-5.20 [facility] Comment on above: Order Comment: Speci men Type: BLOOD SPECIMENOrdering Facility: [facility] Address: [address] [place] [address] Performed By: #### 5 8410-2 ####[facility] LABORATORYCLIA [id number] [address] [place] WBC (Bld) [#/Vol] 8.78 10*3/uL Normal 3.70-11.00 [facility] Comment on above: Order Comment: Speci men Type: BLOOD SPECIMENOrdering Facility: [facility] Address: [address] [place] [address] Performed By: #### 5 8410-2 ####[facility] LABORATORYCLIA [id number] [address] [place] CONSULT PROGon 12-24-2022 CONSULT PROG Normal [facility] Magnesium SerPl-mCncon 12-24 Magnesium [Mass/Vol] 1.7 mg/dL Normal 1.7-2.3 [facility] Comment on above: Order Comment: Speci men Type: BLOOD SPECIMENOrdering Facility: [facility] Address: [address] [place] [address] Performed By: #### 2 777-1, 45932-1, 56654-4, 6-3, 3024-7 ####[facility] LABORATORYCLIA [id number] [address] [place] NUTRITIONon 12-24-2022 NUTRITION Normal [facility] Phosphate SerPl-mCncon 12-24 Phosphate [Mass/Vol] 2.6 mg/dL Low 2.7-4.8 [facility] Comment on above: Order Comment: Speci men Type: BLOOD SPECIMENOrdering Facility: [facility] Address: [address] [place] [address] Performed By: #### 2 777-1, 87824-4, 87871-5, 6-3, 3024-7 ####[facility] LABORATORYCLIA [id number] [address] [place] T4 Free SerPl-mCncon 023 Free T4 [Mass/Vol] 0.7 ng/dL Low 0.9-1.7 [facility] Comment on above: Order Comment: Speci men Type: BLOOD SPECIMENOrdering Facility: [facility] Address: [address] [place] [address] Performed By: #### 2 777-1, 43226-1, 14813-2, 6-3, 3024-7 ####[facility] LABORATORYCLIA [id number] [address] [place] TSH SerPl-aCncon 12-24-2022 TSH Qn 5.090 m[IU]/L High 0.270-4.200 [facility] Comment on above: Order Comment: Speci men Type: BLOOD SPECIMENOrdering Facility: [facility] Address: [address] [place] [address] Performed By: #### 2 777-1, 26428-1, 87935-4, 3016-3, 3024-7 ####[facility] LABORATORYCLIA [id number] [place] [address] [place] ALLIED HEALTHon 12-23-2022 ALLIED HEALTH Normal [facility] Basic metabolic 2000 panelon 12-23-2022 Anion gap [Moles/Vol] 7 mmol/L Low 9-18 [facility] Comment on above: Order Comment: Speci men Type: BLOOD SPECIMENOrdering Facility: [facility] Address: [address] [place] [address] Performed By: #### 2 4321-2, , 2776-10 ####[facility] LABORATORYCLIA [id number] [place] [address] [place] Calcium [Mass/Vol] 7.6 mg/dL Low 8.5-10.2 [facility] Comment on above: Order Comment: Speci men Type: BLOOD SPECIMENOrdering Facility: [facility] Address: [address] [place] [address] Performed By: #### 2 4321-2, , 2776-10 ####[facility] LABORATORYCLIA [id number] [place] [address] [place] Chloride [Moles/Vol] 112 mmol/L High 97-105 [facility] Comment on above: Order Comment: Speci men Type: BLOOD SPECIMENOrdering Facility: [facility] Address: [address] [place] [address] Performed By: #### 2 4321-2, , 2776-10 ####[facility] LABORATORYCLIA [id number] [place] [address] [place] CO2 [Moles/Vol] 20 mmol/L Low 22-30 [facility] Comment on above: Order Comment: Speci men Type: BLOOD SPECIMENOrdering Facility: [facility] Address: [address] [place] [address] Performed By: #### 2 4321-2, , 2776-10 ####[facility]ITALIA [id number] [place] [id number] [place] Creatinine [Mass/Vol] 0.63 mg/dL Normal 0.58-0.96 [facility] Comment on above: Order Comment: Speci men Type: BLOOD SPECIMENOrdering Facility: [facility] Address: [address] [place] [address] Performed By: #### 2 4321-2, , 2776-10 ####[facility]ITALIA [id number] [address] [place] ESTIMATED GLOMERULAR FILTRATION RATE 95 mL/min/1.73m??? Normal >=60 [facility] Comment on above: Order Comment: Speci men Type: BLOOD SPECIMENOrdering Facility: [facility] Address: [address] [place] [address] Result Comment: Mariely mated Glomerular Filtration Rate [...] Performed By: #### 2 4321-2, , 2776-10 ####[facility]ITALIA [id number] [place] [address] [place] Glucose [Mass/Vol] 121 mg/dL High 74-99 [facility] Comment on above: Order Comment: Speci men Type: BLOOD SPECIMENOrdering Facility: [facility] Address: [address] [place] [address] Result Comment: The [place] [employer] (ADA) provides guidance for cutoff [...] Standards of Medical Care in Diabetes 2016, [place] [employer]. Diabetes Care. 2016.39(Suppl 1). Performed By: #### 2 4321-2, , 2776-10 ####[facility] LABORATORYCLIA [id number] [place] [address] [place] Potassium [Moles/Vol] 4.0 mmol/L Normal 3.7-5.1 [facility] Comment on above: Order Comment: Cary lujan Type: BLOOD SPECIMENOrdering Facility: [facility] Address: [address] [place] [address] Performed By: #### 2 432-2, , 2776-10 ####[facility] LABORATORYCLIA [id number] [place] [address] [place] Sodium [Moles/Vol] 139 mmol/L Normal 136-144 [facility] Comment on above: Order Comment: Cary lujan Type: BLOOD SPECIMENOrdering Facility: [facility] Address: [address] [place] [address] Performed By: #### 2 432-2, , 2776-10 ####[facility] LABORATORYCLIA [id number] [place] [address] [place] Urea nitrogen [Mass/Vol] 11 mg/dL Normal 7-21 [facility] Comment on above: Order Comment: Cary lujan Type: BLOOD SPECIMENOrdering Facility: [facility] Address: [address] [place] [address] Performed By: #### 2 432-2, , 2776-10 ####[facility] LABORATORYCLIA [id number] [place] [address] [place] CBC panel Auto (Bld)on 12-23 Erythrocyte distribution width (RBC) [Ratio] 14.7 % Normal 11.5-15.0 [facility] Comment on above: Order Comment: Speci men Type: BLOOD SPECIMENOrdering Facility: [facility] Address: [address] [place] [address] Performed By: #### 5 8410-2 ####[facility] LABORATORYCLIA [id number] [address] Hematocrit (Bld) [Volume fraction] 28.4 % Low 36.0-46.0 [facility] Comment on above: Order Comment: Speci men Type: BLOOD SPECIMENOrdering Facility: [facility] Address: [address] [place] [address] Performed By: #### 5 8410-2 ####[facility] LABORATORYCLIA [id number] [address] Hemoglobin (Bld) [Mass/Vol] 9.0 g/dL Low 11.5-15.5 [facility] Comment on above: Order Comment: Speci men Type: BLOOD SPECIMENOrdering Facility: [facility] Address: [address] [place] [address] Performed By: #### 5 8410-2 ####[facility] LABORATORYCLIA [id number] [address] MCH (RBC) [Entitic mass] 32.0 pg Normal 26.0-34.0 [facility] Comment on above: Order Comment: Speci men Type: BLOOD SPECIMENOrdering Facility: [facility] Address: [address] [place] [address] Performed By: #### 5 8410-2 ####[facility] LABORATORYCLIA [id number] [address] STATES [facility] MCHC (RBC) [Mass/Vol] 31.7 g/dL Normal 30.5-36.0 [facility] Comment on above: Order Comment: Speci men Type: BLOOD SPECIMENOrdering Facility: [facility] Address: [address] [address] Performed By: #### 5 8410-2 ####[facility] LABORATORYCLIA [id number] [address] MCV (RBC) [Entitic vol] 101.1 fL High 80.0-100.0 [facility] Comment on above: Order Comment: Speci men Type: BLOOD SPECIMENOrdering Facility: [facility] Address: [address] [address] Performed By: #### 5 8410-2 ####[facility] LABORATORYCLIA [id number] [address] [place] Nucleated RBC (Bld) [#/Vol] 10*3/uL Normal <0.01 [facility] Comment on above: Order Comment: Speci men Type: BLOOD SPECIMENOrdering Facility: [facility] Address: [address] [address] Performed By: #### 5 8410-2 ####[facility] LABORATORYCLIA [id number] [address] Platelet mean volume (Bld) [Entitic vol] 12.1 fL Normal 9.0-12.7 [facility] Comment on above: Order Comment: Speci men Type: BLOOD SPECIMENOrdering Facility: [facility] Address: [address] [address] Performed By: #### 5 8410-2 ####[facility] LABORATORYCLIA [id number] [address] Platelets (Bld) [#/Vol] 228 10*3/uL Normal 150-400 [facility] Comment on above: Order Comment: Speci men Type: BLOOD SPECIMENOrdering Facility: [facility] Address: [address] [address] Performed By: #### 5 8410-2 ####[facility] LABORATORYCLIA [id number] [address] [place] RBC (Bld) [#/Vol] 2.81 10*6/uL Low 3.90-5.20 [facility] Comment on above: Order Comment: Speci men Type: BLOOD SPECIMENOrdering Facility: [facility] Address: [address] [address] Performed By: #### 5 8410-2 ####[facility] LABORATORYCLIA [id number] [place] [address] [place] WBC (Bld) [#/Vol] 8.51 10*3/uL Normal 3.70-11.00 [facility] Comment on above: Order Comment: Speci men Type: BLOOD SPECIMENOrdering Facility: [facility] Address: [address] [place] [address] Performed By: #### 5 8410-2 ####[facility] LABORATORYCLIA [id number] [place] [address] [place] Magnesium SerPl-mCncon 12-23 Magnesium [Mass/Vol] 1.4 mg/dL Low 1.7-2.3 [facility] Comment on above: Order Comment: Speci men Type: BLOOD SPECIMENOrdering Facility: [facility] Address: [address] [place] [address] Performed By: #### 2 4321-2, , 2776-10 ####[facility] LABORATORYCLIA [id number] [place] [address] [place] Phosphate SerPl-mCncon 12-23 Phosphate [Mass/Vol] 2.1 mg/dL Low 2.7-4.8 [facility] Comment on above: Order Comment: Speci men Type: BLOOD SPECIMENOrdering Facility: [facility] Address: [address] [address] Performed By: #### 2 4321-2, , 2776-10 ####[facility] LABORATORYCLIA [id number] [place] [address] [place] XR CHEST 1V FRONTALon 2022 XR CHEST 1V FRONTAL Normal [facility] ALLIED HEALTHon 12-22-2022 ALLIED HEALTH Normal [facility] Basic metabolic 2000 panelon 12-22-2022 Anion gap [Moles/Vol] 6 mmol/L Low 9-18 [facility] Comment on above: Order Comment: Speci men Type: BLOOD SPECIMENOrdering Facility: [facility] Address: [address] [place] [address] Performed By: #### 2 777-1, , ####[facility] LABORATORYCLIA [id number] [place] [address] [place] Calcium [Mass/Vol] 7.4 mg/dL Low 8.5-10.2 [facility] Comment on above: Order Comment: Speci men Type: BLOOD SPECIMENOrdering Facility: [facility] Address: [address] [place] [address] Performed By: #### 2 777-1, , ####[facility] LABORATORYCLIA [id number] [place] [address] [place] Chloride [Moles/Vol] 111 mmol/L High 97-105 [facility] Comment on above: Order Comment: Speci men Type: BLOOD SPECIMENOrdering Facility: [facility] Address: [address] [place] [address] Performed By: #### 2 777-1, , ####[facility] LABORATORYCLIA [id number] [place] [address] [place] CO2 [Moles/Vol] 20 mmol/L Low 22-30 [facility] Comment on above: Order Comment: Speci men Type: BLOOD SPECIMENOrdering Facility: [facility] Address: [address] [place] [address] Performed By: #### 2 777-1, , 63218-7 ####[facility] LABORATORYCLIA [id number] [place] [address] [place] Creatinine [Mass/Vol] 0.61 mg/dL Normal 0.58-0.96 [facility] Comment on above: Order Comment: Cary lujan Type: BLOOD SPECIMENOrdering Facility: [facility] Address: [address] [id number] Performed By: #### 2 777-1, , ####[facility] LABORATORYCLIA [id number] [address] [place] [id number] [place] ESTIMATED GLOMERULAR FILTRATION RATE 96 mL/min/1.73m??? Normal >=60 [facility] Comment on above: Order Comment: Cary lujan Type: BLOOD SPECIMENOrdering Facility: [facility] Address: [address] [phone] Result Comment: Amriely mated Glomerular Filtration Rate (eGFR) is calculated [...] GFR. Performed By: #### 2 777-1, , ####[facility] LABORATORYCLIA [id number] [place] [address] [place] Glucose [Mass/Vol] 98 mg/dL Normal 74-99 [facility] Comment on above: Order Comment: Cary lujan Type: BLOOD SPECIMENOrdering Facility: [facility] Address: [address] [address] [phone] Result Comment: The [place] [employer] (ADA) provides guidance for cutoff [...] Standards of Medical Care in Diabetes 2016, [place] [employer]. Diabetes Care. 2016.39(Suppl 1). Performed By: #### 2 777-1, , 05953-6 ####[facility] LABORATORYCLIA [id number] [place] [address] [place] Potassium [Moles/Vol] 4.1 mmol/L Normal 3.7-5.1 [facility] Comment on above: Order Comment: Speci men Type: BLOOD SPECIMENOrdering Facility: [facility] Address: [address] [address] Performed By: #### 2 777-1, , 28072-3 ####[facility] LABORATORYCLIA [id number] [address] STATES [facility] Sodium [Moles/Vol] 137 mmol/L Normal 136-144 [facility] Comment on above: Order Comment: Speci men Type: BLOOD SPECIMENOrdering Facility: [facility] Address: [address] [place] [address] Performed By: #### 2 777-1, , ####[facility] LABORATORYCLIA [id number] [address] [place] Urea nitrogen [Mass/Vol] 10 mg/dL Normal 7-21 [facility] Comment on above: Order Comment: Speci men Type: BLOOD SPECIMENOrdering Facility: [facility] Address: [address] [place] [address] Performed By: #### 2 777-1, , 42168-8 ####[facility] LABORATORYCLIA [id number] [address] [place] CBC panel Auto (Bld)on 12-22 Erythrocyte distribution width (RBC) [Ratio] 14.9 % Normal 11.5-15.0 [facility] Comment on above: Order Comment: Speci men Type: BLOOD SPECIMENOrdering Facility: [facility] Address: [address] [place] [address] Performed By: #### 5 8410-2 ####[facility] LABORATORYCLIA [id number] [address] [facility] Hematocrit (Bld) [Volume fraction] 27.6 % Low 36.0-46.0 [facility] Comment on above: Order Comment: Speci men Type: BLOOD SPECIMENOrdering Facility: [facility] Address: [address] [place] [address] Performed By: #### 5 8410-2 ####[facility] LABORATORYCLIA [id number] [address] [place] [facility] Hemoglobin (Bld) [Mass/Vol] 8.9 g/dL Low 11.5-15.5 [facility] Comment on above: Order Comment: Speci men Type: BLOOD SPECIMENOrdering Facility: [facility] Address: [address] [place] [address] Performed By: #### 5 8410-2 ####[facility] LABORATORYCLIA [id number] [address] [place] [facility] MCH (RBC) [Entitic mass] 32.7 pg Normal 26.0-34.0 [facility] Comment on above: Order Comment: Speci men Type: BLOOD SPECIMENOrdering Facility: [facility] Address: [address] [place] [address] Performed By: #### 5 8410-2 ####[facility] LABORATORYCLIA [id number] [address] [place] MCHC (RBC) [Mass/Vol] 32.2 g/dL Normal 30.5-36.0 [facility] Comment on above: Order Comment: Speci men Type: BLOOD SPECIMENOrdering Facility: [facility] Address: [address] [place] [address] Performed By: #### 5 8410-2 ####[facility] LABORATORYCLIA [id number] [address] MCV (RBC) [Entitic vol] 101.5 fL High 80.0-100.0 [facility] Comment on above: Order Comment: Speci men Type: BLOOD SPECIMENOrdering Facility: [facility] Address: [address] [address] Performed By: #### 5 8410-2 ####[facility] LABORATORYCLIA [id number] [address] [place] Nucleated RBC (Bld) [#/Vol] 10*3/uL Normal <0.01 [facility] Comment on above: Order Comment: Speci men Type: BLOOD SPECIMENOrdering Facility: [facility] Address: [address] [place] [address] Performed By: #### 5 8410-2 ####[facility] LABORATORYCLIA [id number] [address] [place] Platelet mean volume (Bld) [Entitic vol] 12.9 fL High 9.0-12.7 [facility] Comment on above: Order Comment: Speci men Type: BLOOD SPECIMENOrdering Facility: [facility] Address: [address] [place] [address] Performed By: #### 5 8410-2 ####[facility] LABORATORYCLIA [id number] [address] [place] Platelets (Bld) [#/Vol] 180 10*3/uL Normal 150-400 [facility] Comment on above: Order Comment: Speci men Type: BLOOD SPECIMENOrdering Facility: [facility] Address: [address] [place] [address] Performed By: #### 5 8410-2 ####[facility] LABORATORYCLIA [id number] [address] [place] RBC (Bld) [#/Vol] 2.72 10*6/uL Low 3.90-5.20 [facility] Comment on above: Order Comment: Speci men Type: BLOOD SPECIMENOrdering Facility: [facility] Address: [address] [place] [address] Performed By: #### 5 8410-2 ####[facility] LABORATORYCLIA [id number] [address] [place] WBC (Bld) [#/Vol] 9.09 10*3/uL Normal 3.70-11.00 [facility] Comment on above: Order Comment: Cary lujan Type: BLOOD SPECIMENOrdering Facility: [facility] Address: [address] [address] Performed By: #### 5 8410-2 ####[facility] LABORATORYCLIA [id number] [address] [facility] Laboratory - Microbiology an d Antimicrobial susceptibilityOrdered By: Dr. Han on 12-22-2022 Bacteria identified Cx Nom (Bld) No growth in 5 days. [facility] Magnesium SerPl-mCncon 12-22 Magnesium [Mass/Vol] 1.7 mg/dL Normal 1.7-2.3 [facility] Comment on above: Order Comment: Cary lujan Type: BLOOD SPECIMENOrdering Facility: [facility] Address: [address] [place] [address] Performed By: #### 2 777-1, 50581-7, 78317-2 ####[facility] LABORATORYCLIA [id number] [address] [place] [facility] PT panel Coag (PPP)on 2022 INR Coag (PPP) [Relative time] {INR} Low 0.9-1.3 [facility] Comment on above: Order Comment: Cary lujan Type: BLOOD SPECIMENOrdering Facility: [facility] Address: [address] [place] [address] Result Comment: Adele min K Antagonist (VKA) Therapeutic Range: INR 2 to 3 (Target INR of 2.5)Note: For patients treated with VKA drugs, such as warfarin, the [place] [employer] 2012 Guideline recommends [...] al. Chest 2012, 141:7S-47SNishimura RA, et al. [facility] 2017, 70: 252-289 Performed By: #### 1 4979-9, 50299-3 ####[facility] LABORATORYCLIA [id number] [place] [address] [place] [facility] PT Coag (PPP) [Time] 9.9 s Normal 9.7-13.0 [facility] Comment on above: Order Comment: Speci men Type: BLOOD SPECIMENOrdering Facility: [facility] Address: [address] [place] [address] Performed By: #### 1 4979-9, 81195-8 ####[facility] LABORATORYCLIA [id number] [address] [place] [facility] Phosphate SerPl-mCncon 12-22 Phosphate [Mass/Vol] 2.1 mg/dL Low 2.7-4.8 [facility] Comment on above: Order Comment: Speci men Type: BLOOD SPECIMENOrdering Facility: [facility] Address: [address] [place] [address] Performed By: #### 2 777-1, 38778-1, 93426-2 ####[facility] SERVICESCLIA [id number] [place] [address] [place] aPTT PPPon 12-22-2022 aPTT Coag (PPP) [Time] 25.2 s Normal 23.0-32.4 [facility] Comment on above: Order Comment: Speci men Type: BLOOD SPECIMENOrdering Facility: [facility] Address: [address] [place] [address] Performed By: #### 1 4979-9, 77800-0 ####[facility] LABORATORYCLIA [id number] [place] [id number] [place] Bacteria Spec Resp Culton Bacteria identified Respiratory culture Nom (Unsp spec) Abnormal [facility] Comment on above: Performed By: #### 3 2355-0 ####[facility] LABORATORYCLIA [id number] [place] [address] [place] [facility] Basic metabolic 2000 panelon 12-21-2022 Anion gap [Moles/Vol] 9 mmol/L Normal 9-18 [facility] Comment on above: Order Comment: Speci men Type: BLOOD SPECIMENOrdering Facility: [facility] Address: [address] [address] Performed By: #### 2 4321-2, , 2776-10 ####[facility] LABORATORYCLIA [id number] [place] [address] [place] Calcium [Mass/Vol] 7.5 mg/dL Low 8.5-10.2 [facility] Comment on above: Order Comment: Speci men Type: BLOOD SPECIMENOrdering Facility: [facility] Address: [address] [address] Performed By: #### 2 4321-2, , 2776-10 ####[facility] LABORATORYCLIA [id number] [place] [address] [place] Chloride [Moles/Vol] 111 mmol/L High 97-105 [facility] Comment on above: Order Comment: Speci men Type: BLOOD SPECIMENOrdering Facility: [facility] Address: [address] [address] Performed By: #### 2 4321-2, , 2776-10 ####[facility] LABORATORYCLIA [id number] [place] [address] [place] CO2 [Moles/Vol] 21 mmol/L Low 22-30 [facility] Comment on above: Order Comment: Speci men Type: BLOOD SPECIMENOrdering Facility: [facility] Address: [address] [address] Performed By: #### 2 4321-2, , 2776- ####[facility] LABORATORYCLIA [id number] [address] [place] Creatinine [Mass/Vol] 0.59 mg/dL Normal 0.58-0.96 [facility] Comment on above: Order Comment: Cary lujan Type: BLOOD SPECIMENOrdering Facility: [facility] Address: [address] [address] Performed By: #### 2 4321-2, , 2776-10 ####[facility] LABORATORYCLIA [id number] [address] [facility] ESTIMATED GLOMERULAR FILTRATION RATE 96 mL/min/1.73m??? Normal >=60 [facility] Comment on above: Order Comment: Cary lujan Type: BLOOD SPECIMENOrdering Facility: [facility] Address: [address] [place] [address] Result Comment: Mariely mated Glomerular Filtration Rate [...] Performed By: #### 2 4321-2, , 2776-10 ####[facility] SERVICESCLIA [id number] [address] [place] Glucose [Mass/Vol] 124 mg/dL High 74-99 [facility] Comment on above: Order Comment: Cary lujan Type: BLOOD SPECIMENOrdering Facility: [facility] Address: [address] [place] [address] Result Comment: The [place] [employer] (ADA) provides guidance for cutoff [...] Standards of Medical Care in Diabetes 2016, [place] [employer]. Diabetes Care. 2016.39(Suppl 1). Performed By: #### 2 4321-2, , 2776-10 ####[facility] LABORATORYCLIA [id number] [place] [address] [place] Potassium [Moles/Vol] 3.6 mmol/L Low 3.7-5.1 [facility] Comment on above: Order Comment: Speci men Type: BLOOD SPECIMENOrdering Facility: [facility] Address: [address] [place] [address] Performed By: #### 2 4321-2, , 2776-10 ####[facility] LABORATORYCLIA [id number] [address] [place] [facility] Sodium [Moles/Vol] 141 mmol/L Normal 136-144 [facility] Comment on above: Order Comment: Speci men Type: BLOOD SPECIMENOrdering Facility: [facility] Address: [address] [place] [address] Performed By: #### 2 4321-2, , 2776-10 ####[facility] LABORATORYCLIA [id number] [address] [place] Urea nitrogen [Mass/Vol] 12 mg/dL Normal 7-21 [facility] Comment on above: Order Comment: Speci men Type: BLOOD SPECIMENOrdering Facility: [facility] Address: [address] [place] [address] Performed By: #### 2 4321-2, , 2776-10 ####[facility] LABORATORYCLIA [id number] [place] [address] [place] CASE MANAGEMon 12-21-2022 CASE MANAGEM Normal [facility] CBC panel Auto (Bld)on 12-21 Erythrocyte distribution width (RBC) [Ratio] 14.6 % Normal 11.5-15.0 [facility] Comment on above: Order Comment: Speci men Type: BLOOD SPECIMENOrdering Facility: [facility] Address: [address] [place] [address] Performed By: #### 5 8410-2 ####[facility] LABORATORYCLIA [id number] [address] Hematocrit (Bld) [Volume fraction] 27.3 % Low 36.0-46.0 [facility] Comment on above: Order Comment: Speci men Type: BLOOD SPECIMENOrdering Facility: [facility] Address: [address] [place] [address] Performed By: #### 5 8410-2 ####[facility] LABORATORYCLIA [id number] [address] [facility] Hemoglobin (Bld) [Mass/Vol] 9.0 g/dL Low 11.5-15.5 [facility] Comment on above: Order Comment: Speci men Type: BLOOD SPECIMENOrdering Facility: [facility] Address: [address] [place] [address] Performed By: #### 5 8410-2 ####[facility] LABORATORYCLIA [id number] [address] MCH (RBC) [Entitic mass] 32.8 pg Normal 26.0-34.0 [facility] Comment on above: Order Comment: Speci men Type: BLOOD SPECIMENOrdering Facility: [facility] Address: [address] [place] [address] Performed By: #### 5 8410-2 ####[facility] LABORATORYCLIA [id number] [address] [place] MCHC (RBC) [Mass/Vol] 33.0 g/dL Normal 30.5-36.0 [facility] Comment on above: Order Comment: Speci men Type: BLOOD SPECIMENOrdering Facility: [facility] Address: [address] [place] [address] Performed By: #### 5 8410-2 ####[facility] LABORATORYCLIA [id number] [address] [place] MCV (RBC) [Entitic vol] 99.6 fL Normal 80.0-100.0 [facility] Comment on above: Order Comment: Speci men Type: BLOOD SPECIMENOrdering Facility: [facility] Address: [address] [place] [address] Performed By: #### 5 8410-2 ####[facility] LABORATORYCLIA [id number] [address] [place] Nucleated RBC (Bld) [#/Vol] 10*3/uL Normal <0.01 [facility] Comment on above: Order Comment: Speci men Type: BLOOD SPECIMENOrdering Facility: [facility] Address: [address] [place] [address] Performed By: #### 5 8410-2 ####[facility] LABORATORYCLIA [id number] [address] [place] Platelet mean volume (Bld) [Entitic vol] 12.9 fL High 9.0-12.7 [facility] Comment on above: Order Comment: Speci men Type: BLOOD SPECIMENOrdering Facility: [facility] Address: [address] [place] [address] Performed By: #### 5 8410-2 ####[facility] LABORATORYCLIA [id number] [address] Platelets (Bld) [#/Vol] 140 10*3/uL Low 150-400 [facility] Comment on above: Order Comment: Speci men Type: BLOOD SPECIMENOrdering Facility: [facility] Address: [address] [address] Performed By: #### 5 8410-2 ####[facility] LABORATORYCLIA [id number] [address] RBC (Bld) [#/Vol] 2.74 10*6/uL Low 3.90-5.20 [facility] Comment on above: Order Comment: Speci men Type: BLOOD SPECIMENOrdering Facility: [facility] Address: [address] [place], [place] [id number] Performed By: #### 5 8410-2 ####[facility] LABORATORYCLIA [id number] [place] [address] [place] WBC (Bld) [#/Vol] 9.04 10*3/uL Normal 3.70-11.00 [facility] Comment on above: Order Comment: Speci men Type: BLOOD SPECIMENOrdering Facility: [facility] Address: [address] [place] [address] Performed By: #### 5 8410-2 ####[facility] LABORATORYCLIA [id number] [address] [place] CONSULT PROGon 12-21-2022 CONSULT PROG Normal [facility] CONSULT PROG [facility] Magnesium SerPl-mCncon 12-21 Magnesium [Mass/Vol] 1.8 mg/dL Normal 1.7-2.3 [facility] Comment on above: Order Comment: Speci men Type: BLOOD SPECIMENOrdering Facility: [facility] Address: [address] [place] [address] Performed By: #### 2 4321-2, 62158-4, 2777-1 ####[facility] LABORATORYCLIA [id number] [address] [facility] [place] NURSING PROGon 12-21-2022 NURSING PROG Normal [facility] NURSING PROG Normal [facility] NURSING PROG Normal [facility] PT panel Coag (PPP)on 2022 INR Coag (PPP) [Relative time] {INR} Low 0.9-1.3 [facility] Comment on above: Order Comment: Speci men Type: BLOOD SPECIMENOrdering Facility: [facility] Address: [address] [place] [address] Result Comment: Adele min K Antagonist (VKA) Therapeutic Range: INR 2 to 3 (Target INR of 2.5)Note: For patients treated with VKA drugs, such as warfarin, the [place] [employer] 2012 Guideline recommends [...] al. Chest 2012, 141:7S-47SNishimura RA, et al. [facility] 2017, 70: 252-289 Performed By: #### 3 4528-0, 49245-4 ####[facility] xoomparkCLIA [id number] [place] [address] [place] PT Coag (PPP) [Time] 10.0 s Normal 9.7-13.0 [facility] Comment on above: Order Comment: Speccy lujan Type: BLOOD SPECIMENOrdering Facility: [facility] Address: [address] [place], [place] [address] Performed By: #### 3 4528-0, 72556-8 ####[facility] xoomparkCLIA [id number] [place] [address] [place] Phenobarb SerPl-ncon 12-21 PHENobarbital [Mass/Vol] 25.5 ug/mL Normal 10.0-40.0 [facility] Comment on above: Order Comment: Cary lujan Type: BLOOD SPECIMENOrdering Facility: [facility] Address: [address] [place], [place] [id number] Result Comment: Refe rence ranges and high/low indicator flags are provided as general guidelines only. The treating physician must determine appropriate target levels/dosing based on the specific clinical situation. Performed By: #### 3 948-7 ####[facility] [employer] LABORATORYCLIA [id number] [place] [address] [place] Phosphate SerPl-mCncon 12-21 Phosphate [Mass/Vol] 2.1 mg/dL Low 2.7-4.8 [facility] Comment on above: Order Comment: Speci men Type: BLOOD SPECIMENOrdering Facility: [facility] Address: [address] [address] Performed By: #### 2 4321-2, 07107-7, 2777-1 ####[facility] LABORATORYCLIA [id number] [address] [place] aPTT PPPon 12-21-2022 aPTT Coag (PPP) [Time] 24.4 s Normal 23.0-32.4 [facility] Comment on above: Order Comment: Speci men Type: BLOOD SPECIMENOrdering Facility: [facility] Address: [address] [place] [address] Performed By: #### 3 4528-0, 04081-5 ####[facility] LABORATORYCLIA [id number] [address] [place] Bacteria CSF Culton 12-21-19 23 Bacteria identified Cx Nom (CSF) CULTURE, CSF: No growth 5 days GRAM STAIN: No organisms seen No Polymorphonuclear Leukocytes Rare Epithelial cells Normal [facility] Comment on above: Performed By: #### 6 06-4 ####[facility] LABORATORYCLIA [id number] [place] [address] [place] Basic metabolic 2000 panelon 12-20-2022 Anion gap [Moles/Vol] 9 mmol/L Normal 9-18 [facility] Comment on above: Order Comment: Speci men Type: BLOOD SPECIMENOrdering Facility: [facility] Address: [address] [address] Performed By: #### 5 0190-8, 06485-3, 2777-1, 2276-4, 50939-4 ####[facility] LABORATORYCLIA [id number] [place] [address] [place] Calcium [Mass/Vol] 7.8 mg/dL Low 8.5-10.2 [facility] Comment on above: Order Comment: Speci men Type: BLOOD SPECIMENOrdering Facility: [facility] Address: [address] [address] Performed By: #### 5 0190-8, 09011-6, 2777-1, 6-4, 75631-8 ####[facility] LABORATORYCLIA [id number] [place] [address] [place] Chloride [Moles/Vol] 110 mmol/L High 97-105 [facility] Comment on above: Order Comment: Speci men Type: BLOOD SPECIMENOrdering Facility: [facility] Address: [address] [place] [address] Performed By: #### 5 0190-8, 77984-7, 2777-1, 6-4, 30977-2 ####[facility] LABORATORYCLIA [id number] [address] [place] CO2 [Moles/Vol] 22 mmol/L Normal 22-30 [facility] Comment on above: Order Comment: Speci men Type: BLOOD SPECIMENOrdering Facility: [facility] Address: [address] [place] [address] Performed By: #### 5 0190-8, 59670-1, 2777-1, 2275-4, 76337-9 ####[facility] LABORATORYCLIA [id number] [place] [address] [place] Creatinine [Mass/Vol] 0.57 mg/dL Low 0.58-0.96 [facility] Comment on above: Order Comment: Speci men Type: BLOOD SPECIMENOrdering Facility: [facility] Address: [address] [place] [address] Performed By: #### 5 0190-8, 71399-1, 2777-1, 2275-4, 04508-8 ####[facility] LABORATORYCLIA [id number] [address] [place] ESTIMATED GLOMERULAR FILTRATION RATE 97 mL/min/1.73m??? Normal >=60 [facility] Comment on above: Order Comment: Speci men Type: BLOOD SPECIMENOrdering Facility: [facility] Address: [address] [place] [address] Result Comment: Mariely mated Glomerular Filtration Rate [...] actual GFR. Performed By: #### 5 0190-8, 76817-5, 2777-1, 2275-, ####[facility] LABORATORYCLIA [id number] [place] [address] [place] Glucose [Mass/Vol] 106 mg/dL High 74-99 [facility] Comment on above: Order Comment: Cary lujan Type: BLOOD SPECIMENOrdering Facility: [facility] Address: [address] [place] [phone] Result Comment: The [place] [employer] (ADA) provides guidance for cutoff [...] Standards of Medical Care in Diabetes 2016, [place] [employer]. Diabetes Care. 2016.39(Suppl 1). Performed By: #### 5 0190-8, 88662-4, 277-1, 2275-, ####[facility] LABORATORYCLIA [id number] [place] [address] [place] Potassium [Moles/Vol] 3.2 mmol/L Low 3.7-5.1 [facility] Comment on above: Order Comment: Cary lujan Type: BLOOD SPECIMENOrdering Facility: [facility] Address: [address] [place] [address] Performed By: #### 5 0190-8, 81887-2, 2777-1, 2275-4, 43022-9 ####[facility] LABORATORYCLIA [id number] [place] [address] [place] Sodium [Moles/Vol] 141 mmol/L Normal 136-144 [facility] Comment on above: Order Comment: Speci men Type: BLOOD SPECIMENOrdering Facility: [facility] Address: [address] [address] Performed By: #### 5 0190-8, 93327-0, 7-1, 6-4, ####[facility] LABORATORYCLIA [id number] [place] [address] [place] Urea nitrogen [Mass/Vol] 18 mg/dL Normal 7-21 [facility] Comment on above: Order Comment: Speci men Type: BLOOD SPECIMENOrdering Facility: [facility] Address: [address] [address] Performed By: #### 5 0190-8, 79650-7, 7-1, 2275-4, ####[facility] LABORATORYCLIA [id number] [place] [address] [place] CASE MANAGEMon 12-20-2022 CASE MANAGEM Normal [facility] CASE MGT INIT ASSESon 2022 CASE MGT INIT ASSES Normal [facility] CBC W Auto Differential pane l (Bld)on 12-20-2022 Basophils (Bld) [#/Vol] 10*3/uL Normal <0.11 [facility] Comment on above: Order Comment: Speci men Type: BLOOD SPECIMENOrdering Facility: [facility] Address: [address] [address] Performed By: #### 5 7021-8 ####[facility] LABORATORYCLIA [id number] [address] [place] Basophils/100 WBC (Bld) 0.1 % Normal [facility] Comment on above: Order Comment: Speci men Type: BLOOD SPECIMENOrdering Facility: [facility] Address: [address] [address] Performed By: #### 5 7021-8 ####[facility] LABORATORYCLIA [id number] [address] Differential cell count method Nom (Bld) Auto Normal [facility] Comment on above: Order Comment: Speci men Type: BLOOD SPECIMENOrdering Facility: [facility] Address: [address] [place] [address] Performed By: #### 5 7021-8 ####[facility] LABORATORYCLIA [id number] [address] [place] Eosinophils (Bld) [#/Vol] 0.11 10*3/uL Normal <0.46 [facility] Comment on above: Order Comment: Speci men Type: BLOOD SPECIMENOrdering Facility: [facility] Address: [address] [place] [address] Performed By: #### 5 7021-8 ####[facility] LABORATORYCLIA [id number] [address] Eosinophils/100 WBC (Bld) 1.4 % Normal [facility] Comment on above: Order Comment: Speci men Type: BLOOD SPECIMENOrdering Facility: [facility] Address: [address] [place] [address] Performed By: #### 5 7021-8 ####[facility] LABORATORYCLIA [id number] [address] [place] Erythrocyte distribution width (RBC) [Ratio] 14.4 % Normal 11.5-15.0 [facility] Comment on above: Order Comment: Speci men Type: BLOOD SPECIMENOrdering Facility: [facility] Address: [address] [place] [address] Performed By: #### 5 7021-8 ####[facility] LABORATORYCLIA [id number] [address] [place] Hematocrit (Bld) [Volume fraction] 28.0 % Low 36.0-46.0 [facility] Comment on above: Order Comment: Speci men Type: BLOOD SPECIMENOrdering Facility: [facility] Address: [address] [place] [address] Performed By: #### 5 7021-8 ####[facility] LABORATORYCLIA [id number] [address] [place] Hemoglobin (Bld) [Mass/Vol] 9.0 g/dL Low 11.5-15.5 [facility] Comment on above: Order Comment: Speci men Type: BLOOD SPECIMENOrdering Facility: [facility] Address: [address] [place] [address] Performed By: #### 5 7021-8 ####[facility] LABORATORYCLIA [id number] [address] [place] Immature granulocytes (Bld) [#/Vol] 0.05 10*3/uL Normal <0.10 [facility] Comment on above: Order Comment: Speci men Type: BLOOD SPECIMENOrdering Facility: [facility] Address: [address] [place] [address] Performed By: #### 5 7021-8 ####[facility] LABORATORYCLIA [id number] [address] Immature granulocytes/100 WBC (Bld) 0.6 % Normal [facility] Comment on above: Order Comment: Speci men Type: BLOOD SPECIMENOrdering Facility: [facility] Address: [address] [place] [address] Performed By: #### 5 7021-8 ####[facility] LABORATORYCLIA [id number] [place] [address] [place] Lymphocytes (Bld) [#/Vol] 1.03 10*3/uL Normal 1.00-4.00 [facility] Comment on above: Order Comment: Speci men Type: BLOOD SPECIMENOrdering Facility: [facility] Address: [address] [place] [address] Performed By: #### 5 7021-8 ####[facility] LABORATORYCLIA [id number] [address] Lymphocytes/100 WBC (Bld) 12.9 % Normal [facility] Comment on above: Order Comment: Speci men Type: BLOOD SPECIMENOrdering Facility: [facility] Address: [address] [place] [address] Performed By: #### 5 7021-8 ####[facility] LABORATORYCLIA [id number] [address] STATES [facility] MCH (RBC) [Entitic mass] 32.5 pg Normal 26.0-34.0 [facility] Comment on above: Order Comment: Speci men Type: BLOOD SPECIMENOrdering Facility: [facility] Address: [address] [place] [address] Performed By: #### 5 7021-8 ####[facility] LABORATORYCLIA [id number] [address] [place] MCHC (RBC) [Mass/Vol] 32.1 g/dL Normal 30.5-36.0 [facility] Comment on above: Order Comment: Speci men Type: BLOOD SPECIMENOrdering Facility: [facility] Address: [address] [place] [address] Performed By: #### 5 7021-8 ####[facility] LABORATORYCLIA [id number] [address] STATES [facility] MCV (RBC) [Entitic vol] 101.1 fL High 80.0-100.0 [facility] Comment on above: Order Comment: Speci men Type: BLOOD SPECIMENOrdering Facility: [facility] Address: [address] [place] [address] Performed By: #### 5 7021-8 ####[facility] LABORATORYCLIA [id number] [address] Monocytes (Bld) [#/Vol] 0.93 10*3/uL High <0.87 [facility] Comment on above: Order Comment: Speci men Type: BLOOD SPECIMENOrdering Facility: [facility] Address: [address] [place] [address] Performed By: #### 5 7021-8 ####[facility] LABORATORYCLIA [id number] [address] [place] Monocytes/100 WBC (Bld) 11.7 % Normal [facility] Comment on above: Order Comment: Speci men Type: BLOOD SPECIMENOrdering Facility: [facility] Address: [address] [place] [address] Performed By: #### 5 7021-8 ####[facility] LABORATORYCLIA [id number] [place] [address] [place] Neutrophils (Bld) [#/Vol] 5.83 10*3/uL Normal 1.45-7.50 [facility] Comment on above: Order Comment: Speci men Type: BLOOD SPECIMENOrdering Facility: [facility] Address: [address] [place] [address] Performed By: #### 5 7021-8 ####[facility] LABORATORYCLIA [id number] [address] [place] Neutrophils/100 WBC (Bld) 73.3 % Normal [facility] Comment on above: Order Comment: Speci men Type: BLOOD SPECIMENOrdering Facility: [facility] Address: [address] [place] [address] Performed By: #### 5 7021-8 ####[facility] LABORATORYCLIA [id number] [address] [place] Nucleated RBC (Bld) [#/Vol] 0.02 10*3/uL High <0.01 [facility] Comment on above: Order Comment: Speci men Type: BLOOD SPECIMENOrdering Facility: [facility] Address: [address] [place] [address] Performed By: #### 5 7021-8 ####[facility] LABORATORYCLIA [id number] [address] [place] Nucleated RBC/100 WBC (Bld) [Ratio] 0.3 /100 WBC Normal [facility] Comment on above: Order Comment: Speci men Type: BLOOD SPECIMENOrdering Facility: [facility] Address: [address] [address] Performed By: #### 5 7021-8 ####[facility] LABORATORYCLIA [id number] [address] Platelet mean volume (Bld) [Entitic vol] 12.4 fL Normal 9.0-12.7 [facility] Comment on above: Order Comment: Speci men Type: BLOOD SPECIMENOrdering Facility: [facility] Address: [address] [place] [address] Performed By: #### 5 7021-8 ####[facility] LABORATORYCLIA [id number] [address] [place] Platelets (Bld) [#/Vol] 79 10*3/uL Low 150-400 [facility] Comment on above: Order Comment: Speci men Type: BLOOD SPECIMENOrdering Facility: [facility] Address: [address] [place] [address] Result Comment: No c lot detected. Performed By: #### 5 7021-8 ####[facility] LABORATORYCLIA [id number] [address] [place] RBC (Bld) [#/Vol] 2.77 10*6/uL Low 3.90-5.20 [facility] Comment on above: Order Comment: Speci men Type: BLOOD SPECIMENOrdering Facility: [facility] Address: [address] [address] Performed By: #### 5 7021-8 ####[facility] LABORATORYCLIA [id number] [address] [place] WBC (Bld) [#/Vol] 7.96 10*3/uL Normal 3.70-11.00 [facility] Comment on above: Order Comment: Speci men Type: BLOOD SPECIMENOrdering Facility: [facility] Address: [address] [place] [address] Performed By: #### 5 7021-8 ####[facility] LABORATORYCLIA [id number] [address] CBC panel Auto (Bld)on 12-20 Erythrocyte distribution width (RBC) [Ratio] 14.4 % Normal 11.5-15.0 [facility] Comment on above: Order Comment: Speci men Type: BLOOD SPECIMENOrdering Facility: [facility] Address: [address] [place] [address] Performed By: #### 5 8410-2 ####[facility] LABORATORYCLIA [id number] [address] Hematocrit (Bld) [Volume fraction] 27.1 % Low 36.0-46.0 [facility] Comment on above: Order Comment: Speci men Type: BLOOD SPECIMENOrdering Facility: [facility] Address: [address] [place] [address] Performed By: #### 5 8410-2 ####[facility] LABORATORYCLIA [id number] [address] Hemoglobin (Bld) [Mass/Vol] 8.9 g/dL Low 11.5-15.5 [facility] Comment on above: Order Comment: Speci men Type: BLOOD SPECIMENOrdering Facility: [facility] Address: [address] [place] [address] Performed By: #### 5 8410-2 ####[facility] LABORATORYCLIA [id number] [address] STATES [facility] MCH (RBC) [Entitic mass] 32.7 pg Normal 26.0-34.0 [facility] Comment on above: Order Comment: Speci men Type: BLOOD SPECIMENOrdering Facility: [facility] Address: [address] [place] [address] Performed By: #### 5 8410-2 ####[facility] LABORATORYCLIA [id number] [address] [place] MCHC (RBC) [Mass/Vol] 32.8 g/dL Normal 30.5-36.0 [facility] Comment on above: Order Comment: Speci men Type: BLOOD SPECIMENOrdering Facility: [facility] Address: [address] [address] Performed By: #### 5 8410-2 ####[facility] LABORATORYCLIA [id number] [address] MCV (RBC) [Entitic vol] 99.6 fL Normal 80.0-100.0 [facility] Comment on above: Order Comment: Speci men Type: BLOOD SPECIMENOrdering Facility: [facility] Address: [address] [place] [address] Performed By: #### 5 8410-2 ####[facility] LABORATORYCLIA [id number] [address] Nucleated RBC (Bld) [#/Vol] 0.02 10*3/uL High <0.01 [facility] Comment on above: Order Comment: Speci men Type: BLOOD SPECIMENOrdering Facility: [facility] Address: [address] [place] [address] Performed By: #### 5 8410-2 ####[facility] LABORATORYCLIA [id number] [address] Platelet mean volume (Bld) [Entitic vol] 12.3 fL Normal 9.0-12.7 [facility] Comment on above: Order Comment: Speci men Type: BLOOD SPECIMENOrdering Facility: [facility] Address: [address] [place] [address] Performed By: #### 5 8410-2 ####[facility] LABORATORYCLIA [id number] [address] Platelets (Bld) [#/Vol] 118 10*3/uL Low 150-400 [facility] Comment on above: Order Comment: Speci men Type: BLOOD SPECIMENOrdering Facility: [facility] Address: [address] [place] [address] Performed By: #### 5 8410-2 ####[facility] LABORATORYCLIA [id number] [address] RBC (Bld) [#/Vol] 2.72 10*6/uL Low 3.90-5.20 [facility] Comment on above: Order Comment: Speci men Type: BLOOD SPECIMENOrdering Facility: [facility] Address: [address] [place] [address] Performed By: #### 5 8410-2 ####[facility] LABORATORYCLIA [id number] [address] [place] WBC (Bld) [#/Vol] 8.10 10*3/uL Normal 3.70-11.00 [facility] Comment on above: Order Comment: Speci men Type: BLOOD SPECIMENOrdering Facility: [facility] Address: [address] [place] [address] Performed By: #### 5 8410-2 ####[facility] LABORATORYCLIA [id number] [address] CONSULT PROGon 12-20-2022 CONSULT PROG Normal [facility] CONSULT PROG Normal [facility] CSF MANUAL DIFFon 12-20-2022 DIF TTL, CSF 41 cells counted Normal [facility] Comment on above: Order Comment: Speci men Type: CEREBROSPINAL FLUIDOrdering Facility: [facility] Address: [address] [place] [address] Performed By: #### 3 4563-7, [id number] ####[facility] LABORATORYCLIA [id number] [place] [address] [place] LYMPH%, CSF 66 % Normal 50-90 [facility] Comment on above: Order Comment: Speci men Type: CEREBROSPINAL FLUIDOrdering Facility: [facility] Address: [address] [place] [address] Performed By: #### 3 4563-7, [id number] ####[facility] LABORATORYCLIA [id number] [place] [address] [place] MONO%, CSF 20 % Normal 10-50 [facility] Comment on above: Order Comment: Speci men Type: CEREBROSPINAL FLUIDOrdering Facility: [facility] Address: [address] [address] Performed By: #### 3 4563-7, [id number] ####[facility] LABORATORYCLIA [id number] [place] [address] [place] NEUT%, CSF 15 % High 0-3 [facility] Comment on above: Order Comment: Speci men Type: CEREBROSPINAL FLUIDOrdering Facility: [facility] Address: [address] [place] [address] Result Comment: Less than 100 cells counted on differential Performed By: #### 3 4563-7, [id number] ####[facility] LABORATORYCLIA [id number] [address] [facility] Calcium.ionized [Moles/Vol]o n 12-20-2022 Calcium.ionized (BldV) [Mass/Vol] 1.13 mmol/L Normal 1.08-1.30 [facility] Comment on above: Order Comment: Speci men Type: BLOOD SPECIMENOrdering Facility: [facility] Address: [address] [address] Performed By: #### 1 995-0 ####[facility] LABORATORYCLIA [id number] [address] [place] [facility] Calcium.ionized adjusted to pH 7.4 (Bld) [Moles/Vol] 1.13 mmol/L Normal 1.08-1.30 [facility] Comment on above: Order Comment: Speci men Type: BLOOD SPECIMENOrdering Facility: [facility] Address: [address] [address] Performed By: #### 1 995-0 ####[facility] LABORATORYCLIA [id number] [address] Cell count panel (CSF)on Clarity (CSF) Clear Normal Clear [facility] Comment on above: Order Comment: Speci men Type: CEREBROSPINAL FLUIDOrdering Facility: [facility] Address: [address] [address] Performed By: #### 3 4563-7, [id number] ####[facility] LABORATORYCLIA [id number] [address] Clarity (Unsp spec) Clear Normal Clear [facility] Comment on above: Order Comment: Speci men Type: CEREBROSPINAL FLUIDOrdering Facility: [facility] Address: [address] [address] Performed By: #### 3 4563-7, [id number] ####[facility]ORATORYCLIA [id number] [address] Color (CSF) Colorless Normal Colorless [facility] Comment on above: Order Comment: Speci men Type: CEREBROSPINAL FLUIDOrdering Facility: [facility] Address: [address] [place] [address] Performed By: #### 3 4563-7, [id number] ####[facility] LABORATORYCLIA [id number] [address] Color (Spun CSF) Colorless Normal Colorless [facility] Comment on above: Order Comment: Speci men Type: CEREBROSPINAL FLUIDOrdering Facility: [facility] Address: [address] [place] [address] Performed By: #### 3 4563-7, [id number] ####[facility] LABORATORYCLIA [id number] [address] CSF TUBE NUMBER Tube 1 Normal [facility] Comment on above: Order Comment: Speci men Type: CEREBROSPINAL FLUIDOrdering Facility: [facility] Address: [address] [address] Performed By: #### 3 4563-7, [id number] ####[facility] LABORATORYCLIA [id number] [address] RBC Manual cnt (CSF) [#/Vol] 21 cells/uL High 0-5 [facility] Comment on above: Order Comment: Speci men Type: CEREBROSPINAL FLUIDOrdering Facility: [facility] Address: [address] [address] Performed By: #### 3 4563-7, [id number] ####[facility] LABORATORYCLIA [id number] [place] [address] [place] WBC Manual cnt (CSF) [#/Vol] 3 cells/uL Normal 0-5 [facility] Comment on above: Order Comment: Speci men Type: CEREBROSPINAL FLUIDOrdering Facility: [facility] Address: [address] [place] [address] Performed By: #### 3 4563-7, [id number] ####[facility] LABORATORYCLIA [id number] [place] [address] [place] [facility] Ferritin [Mass/Vol] 943.2 ng/mL High 14.7-205.1 [facility] Comment on above: Order Comment: Speci men Type: BLOOD SPECIMENOrdering Facility: [facility] Address: [address] [place] [address] Performed By: #### 5 0190-8, 22467-5, 2777-1, 2276-4, 67074-5 ####[facility] LABORATORYCLIA [id number] [place] [address] [place] Folate SerPl-ncon 12-21-19 23 Folate [Mass/Vol] 12.0 ng/mL Normal >4.7 [facility] Comment on above: Order Comment: Speci men Type: BLOOD SPECIMENOrdering Facility: [facility] Address: [address] [place] [address] Performed By: #### 2 284-8, 71348-1, 2132-9, 3053-6 ####[facility] LABORATORYCLIA [id number] [place] [address] [place] Glucose CSF-mCncon 3 Glucose (CSF) [Mass/Vol] 82 mg/dL High 40-70 [facility] Comment on above: Order Comment: Speci men Type: CEREBROSPINAL FLUIDOrdering Facility: [facility] Address: [address] [place] [address] Result Comment: Lumb ar CSF glucose values of healthy patients are approximately 60% of the plasma values and must always be compared with a concurrently measured plasma value for adequate clinical interpretation.References: 1. Glucose HK (GLUC3) [package insert V 12.0 Swiss]. [employer], [place], [place]. February 2016. 2. Cher Avery, Cher Dent (2015). Chapter 7: Glucose and Lactate. Eliazar Del Cid.(eds.), Cerebrospinal Fluid in Clinical Neurology. [place]: [employer]. Performed By: #### 2 342-4, 2880-3 ####[facility] LABORATORYCLIA [id number] [place], [place] [id number] [place] [address] OF [place] HERPES SIMPLEX CSFon 023 HERPES SIMPLEX CSF HSV-1: Negative for Herpes Simplex Virus Type 1 by PCR HSV-2: Negative for Herpes Simplex Virus Type 2 by PCR Normal [facility] Comment on above: Performed By: #### [facility] ####[facility] LABCLIA [id number] [facility] [id number] Iron and Iron binding capaci ty panelon 12-20-2022 Iron [Mass/Vol] 32 ug/dL Low 41-186 [facility] Comment on above: Order Comment: Speci men Type: BLOOD SPECIMENOrdering Facility: [facility] Address: [address] [place] [address] Performed By: #### 5 0190-8, 31703-6, 7-1, 2275-4, 60547-7 ####[facility] SERVICESCLIA [id number] [address] Iron binding capacity [Mass/Vol] 128 ug/dL Low 232-386 [facility] Comment on above: Order Comment: Speci men Type: BLOOD SPECIMENOrdering Facility: [facility] Address: [address] [address] Performed By: #### 5 0190-8, 37011-2, 2777-1, 6-4, 21963-0 ####[facility] LABORATORYCLIA [id number] [place] [address] [place] Iron saturation [Mass fraction] 25.0 % Normal 15.0-57.0 [facility] Comment on above: Order Comment: Cary lujan Type: BLOOD SPECIMENOrdering Facility: [facility] Address: [address] [place] [address] Performed By: #### 5 0190-8, 29888-2, 2777-1, 2276-4, 07541-4 ####[facility] LABORATORYCLIA [id number] [place] [address] [place] MENINGITIS ENCEPHALITIS BIOF IREon 12-20-2022 C. gattii+neoformans DNA CY+non-probe Ql (CSF) Not detected Normal Not detected, Indeterminate [facility] Comment on above: Order Comment: Cary lujan Type: CEREBROSPINAL FLUIDOrdering Facility: [facility] Address: [address] [place] [address] Performed By: #### M GEBF ####[facility] LABORATORYCLIA [id number] [place] [address] [place] CMV DNA CY+non-probe Ql (CSF) Not detected Normal Not detected, Indeterminate [facility] Comment on above: Order Comment: Cary lujan Type: CEREBROSPINAL FLUIDOrdering Facility: [facility] Address: [address] [place] [address] Performed By: #### M GEBF ####[facility] LABORATORYCLIA [id number] [address] STATES [place] E. coli K1 DNA CY+non-probe Ql (CSF) Not detected Normal Not detected, Indeterminate [facility] Comment on above: Order Comment: Rejii men Type: CEREBROSPINAL FLUIDOrdering Facility: [facility] Address: [address] [place] [address] Performed By: #### M GEBF ####[facility] LABORATORYCLIA [id number] [address] [place] Enterovirus RNA CY+non-probe Ql (CSF) Not detected Normal Not detected, Indeterminate [facility] Comment on above: Order Comment: Speci men Type: CEREBROSPINAL FLUIDOrdering Facility: [facility] Address: [address] [place] [address] Performed By: #### M GEBF ####[facility] LABORATORYCLIA [id number] [address] [place] H. influenzae DNA CY+non-probe Ql (CSF) Not detected Normal Not detected, Indeterminate [facility] Comment on above: Order Comment: Speci men Type: CEREBROSPINAL FLUIDOrdering Facility: [facility] Address: [address] [place] [address] Performed By: #### M GEBF ####[facility] LABORATORYCLIA [id number] [place] [address] [place] HHV 6 DNA CY+non-probe Ql (CSF) Not detected Normal Not detected, Indeterminate [facility] Comment on above: Order Comment: Speci men Type: CEREBROSPINAL FLUIDOrdering Facility: [facility] Address: [address] [place] [address] Performed By: #### M GEBF ####[facility] LABORATORYCLIA [id number] [place] [address] [place] HSV 1 DNA CY+non-probe Ql (CSF) Not detected Normal Not detected, Indeterminate [facility] Comment on above: Order Comment: Speci men Type: CEREBROSPINAL FLUIDOrdering Facility: [facility] Address: [address] [place] [address] Performed By: #### M GEBF ####[facility] LABORATORYCLIA [id number] [place] [address] [place] HSV 2 DNA CY+non-probe Ql (CSF) Not detected Normal Not detected, Indeterminate [facility] Comment on above: Order Comment: Speci men Type: CEREBROSPINAL FLUIDOrdering Facility: [facility] Address: [address] [place] [address] Performed By: #### M GEBF ####[facility] LABORATORYCLIA [id number] [place] [address] [place] L. monocytogenes DNA CY+non-probe Ql (CSF) Not detected Normal Not detected, Indeterminate [facility] Comment on above: Order Comment: Speci men Type: CEREBROSPINAL FLUIDOrdering Facility: [facility] Address: [address] [place] [address] Performed By: #### M GEBF ####[facility] LABORATORYCLIA [id number] [address] OF [facility] N. meningitidis DNA CY+non-probe Ql (CSF) Not detected Normal Not detected, Indeterminate [facility] Comment on above: Order Comment: Speci men Type: CEREBROSPINAL FLUIDOrdering Facility: [facility] Address: [address] [place] [address] Performed By: #### M GEBF ####[facility] LABORATORYCLIA [id number] [address] OF [place] Parechovirus A RNA CY+non-probe Ql (CSF) Not detected Normal Not detected, Indeterminate [facility] Comment on above: Order Comment: Speci men Type: CEREBROSPINAL FLUIDOrdering Facility: [facility] Address: [address] [place] [address] Performed By: #### M GEBF ####[facility] LABORATORYCLIA [id number] [address] OF [place] S. agalactiae DNA CY+non-probe Ql (CSF) Not detected Normal Not detected, Indeterminate [facility] Comment on above: Order Comment: Speci men Type: CEREBROSPINAL FLUIDOrdering Facility: [facility] Address: [address] [place] [address] Performed By: #### M GEBF ####[facility] LABORATORYCLIA [id number] [address] OF [place] S. pneumoniae DNA CY+non-probe Ql (CSF) Not detected Normal Not detected, Indeterminate [facility] Comment on above: Order Comment: Speci [facility] Type: CEREBROSPINAL FLUIDOrdering Facility: [facility] Address: [address] [place] [address] Performed By: #### M GEBF ####[facility] LABORATORYCLIA [id number] [address] [place] VZV DNA CY+non-probe Ql (CSF) Not detected Normal Not detected, Indeterminate [facility] Comment on above: Order Comment: Cary lujan Type: CEREBROSPINAL FLUIDOrdering Facility: [facility] Address: [address] [place] [address] Performed By: #### M GEBF ####[facility] LABORATORYCLIA [id number] [address] OF [place] Magnesium SerPl-mCncon 12-20 Magnesium [Mass/Vol] 1.4 mg/dL Low 1.7-2.3 [facility] Comment on above: Order Comment: Cary lujan Type: BLOOD SPECIMENOrdering Facility: [facility] Address: [address] [place] [address] Performed By: #### 5 0190-8, 08499-7, 2777-1, 2276-4, 85372-6 ####[facility] LABORATORYCLIA [id number] [address] [place] NURSING PROGon 12-20-2022 NURSING PROG Normal [facility] PT panel Coag (PPP)on 2022 INR Coag (PPP) [Relative time] 1.0 {INR} Normal 0.9-1.3 [facility] Comment on above: Order Comment: Cary lujan Type: BLOOD SPECIMENOrdering Facility: [facility] Address: [address] [place] [address] Result Comment: Adele min K Antagonist (VKA) Therapeutic Range: INR 2 to 3 (Target INR of 2.5)Note: For patients treated with VKA drugs, such as warfarin, the [place] [employer] 2012 Guideline recommends [...] of 3).Freddy TAVAREZ, et al. Chest 2012, 141:7S-47SNishimura RA, et al. JAC 2017, 70: 252-289 Performed By: #### 3 4528-0, 00477-3 ####[facility] LABORATORYCLIA [id number] [place] [address] [place] PT Coag (PPP) [Time] 10.5 s Normal 9.7-13.0 [facility] Comment on above: Order Comment: Speci men Type: BLOOD SPECIMENOrdering Facility: [facility] Address: [address] [place] [address] Performed By: #### 3 4528-0, 11609-4 ####[facility] SERVICESCLIA [id number] [address] [place] Phosphate SerPl-mCncon 12-20 Phosphate [Mass/Vol] 1.9 mg/dL Low 2.7-4.8 [facility] Comment on above: Order Comment: Speci men Type: BLOOD SPECIMENOrdering Facility: [facility] Address: [address] [place] [address] Performed By: #### 5 0190-8, 83114-4, 2777-1, 2276-4, 38870-3 ####[facility] [id number] [address] [place] Procalcitonin SerPl-mCncon 0 12-20-2022 Procalcitonin [Mass/Vol] 1.71 ng/mL High <0.09 [facility] Comment on above: Order Comment: Speci [facility] Type: BLOOD SPECIMENOrdering Facility: [facility] Address: [address] [place] [address] Result Comment: For a guided interpretation of test results, please visit the Change in Procalcitonin Calculator, [email or web address]. Performed By: #### 2 284-8, 98070-4, 2132-9, 3053-6 ####[facility] LABORATORYCLIA [id number] [place] [address] [place] Prot CSF-mCncon 12-20-2022 Protein (CSF) [Mass/Vol] 22 mg/dL Normal 15-45 [facility] Comment on above: Order Comment: Speci men Type: CEREBROSPINAL FLUIDOrdering Facility: [facility] Address: [address] [place] [address] Performed By: #### 2 342-4, 2880-3 ####[facility] LABORATORYCLIA [id number] [address] OF [place] T3 SerPl-ncon 12-20-2022 T3 [Mass/Vol] 87 ng/dL Normal 79-165 [facility] Comment on above: Order Comment: Speci men Type: BLOOD SPECIMENOrdering Facility: [facility] Address: [address] [place] [address] Performed By: #### 2 284-8, 72982-7, 2132-9, 3053-6 ####[facility] SERVICESCLIA [id number] [address] STATES [facility] Vancomycin random [Mass/Vol] on 12-20-2022 Vancomycin [Mass/Vol] 12.5 ug/mL Normal 10.0-20.0 [facility] Comment on above: Order Comment: Speci men Type: BLOOD SPECIMENOrdering Facility: [facility] Address: [address] [place] [address] Result Comment: Refe rence ranges and high/low indicator flags are provided as general guidelines only. The treating physician must determine appropriate target levels/dosing based on the specific clinical situation. Performed By: #### 4 091-5 ####[facility] LABORATORYCLIA [id number] [address] [place] Vit B12 SerPl-ncon 023 Cobalamin (Vitamin B12) [Mass/Vol] 729 pg/mL Normal 232-1245 [facility] Comment on above: Order Comment: Speci men Type: BLOOD SPECIMENOrdering Facility: [facility] Address: [address] [place] [address] Performed By: #### 2 284-8, 04106-7, 2132-9, 3053-6 ####[facility] LABORATORYCLIA [id number] [address] OF [facility] aPTT PPPon 12-20-2022 aPTT Coag (PPP) [Time] 24.2 s Normal 23.0-32.4 [facility] Comment on above: Order Comment: Speci men Type: BLOOD SPECIMENOrdering Facility: [facility] Address: [address] [place] [address] Performed By: #### 3 4528-0, 31208-2 ####[facility] LABORATORYCLIA [id number] [address] [place] ALLIED HEALTHon 12-19-2022 ALLIED HEALTH Normal [facility] ALLIED HEALTH Normal [facility] Bacteria Spec Resp Culton Bacteria identified Respiratory culture Nom (Unsp spec) CULTURE, RESPIRATORY: Rare Normal respiratory jorge present GRAM STAIN: No organisms seen Few Polymorphonuclear leukocytes Few Epithelial cells Normal [facility] Comment on above: Performed By: #### 3 2355-0 ####[facility] LABORATORYCLIA [id number] [place] [address] [place] Basic metabolic 2000 panelon 12-19-2022 Anion gap [Moles/Vol] 10 mmol/L Normal 9-18 [facility] Comment on above: Order Comment: Speci men Type: BLOOD SPECIMENOrdering Facility: [facility] Address: [address] [place] [address] Performed By: #### 2 4321-2 ####[facility] LABORATORYCLIA [id number] [place] [address] [place] Calcium [Mass/Vol] 8.6 mg/dL Normal 8.5-10.2 [facility] Comment on above: Order Comment: Speci men Type: BLOOD SPECIMENOrdering Facility: [facility] Address: [address] [place] [address] Performed By: #### 2 4321-2 ####[facility] LABORATORYCLIA [id number] [address] STATES OF [facility] Chloride [Moles/Vol] 110 mmol/L High 97-105 [facility] Comment on above: Order Comment: Speci men Type: BLOOD SPECIMENOrdering Facility: [facility] Address: [address] [place] [address] Performed By: #### 2 4321-2 ####[facility] LABORATORYCLIA [id number] [address] OF [facility] CO2 [Moles/Vol] 22 mmol/L Normal 22-30 [facility] Comment on above: Order Comment: Speci men Type: BLOOD SPECIMENOrdering Facility: [facility] Address: [address] [place] [address] Performed By: #### 2 4321-2 ####[facility] LABORATORYCLIA [id number] [address] Creatinine [Mass/Vol] 0.72 mg/dL Normal 0.58-0.96 [facility] Comment on above: Order Comment: Speci men Type: BLOOD SPECIMENOrdering Facility: [facility] Address: [address] [place] [address] Performed By: #### 2 4321-2 ####[facility] LABORATORYCLIA [id number] [address] ESTIMATED GLOMERULAR FILTRATION RATE 90 mL/min/1.73m??? Normal >=60 [facility] Comment on above: Order Comment: Speci men Type: BLOOD SPECIMENOrdering Facility: [facility] Address: [address] [place] [address] Result Comment: Mariely mated Glomerular Filtration Rate [...] actual GFR. Performed By: #### 2 4321-2 ####[facility] LABORATORYCLIA [id number] [place] [address] [place] Glucose [Mass/Vol] 117 mg/dL High 74-99 [facility] Comment on above: Order Comment: Cary lujan Type: BLOOD SPECIMENOrdering Facility: [facility] Address: [address] [place] [address] Result Comment: The [place] [employer] (ADA) provides guidance for cutoff [...] Standards of Medical Care in Diabetes 2016, [place] [employer]. Diabetes Care. 2016.39(Suppl 1). Performed By: #### 2 4321-2 ####[facility] LABORATORYCLIA [id number] [place] [address] [place] Potassium [Moles/Vol] 3.0 mmol/L Low 3.7-5.1 [facility] Comment on above: Order Comment: Cary lujan Type: BLOOD SPECIMENOrdering Facility: [facility] Address: [address] [place] [address] Performed By: #### 2 4321-2 ####[facility] LABORATORYCLIA [id number] [place] [address] [place] Sodium [Moles/Vol] 142 mmol/L Normal 136-144 [facility] Comment on above: Order Comment: Cary lujan Type: BLOOD SPECIMENOrdering Facility: [facility] Address: [address] [place] [address] Performed By: #### 2 4321-2 ####[facility] LABORATORYCLIA [id number] [place] [address] [place] Urea nitrogen [Mass/Vol] 32 mg/dL High 7-21 [facility] Comment on above: Order Comment: Speci men Type: BLOOD SPECIMENOrdering Facility: [facility] Address: [address] [place] [address] Performed By: #### 2 4321-2 ####[facility] LABORATORYCLIA [id number] [address] STATES [facility] CBC panel Auto (Bld)on 12-19 Erythrocyte distribution width (RBC) [Ratio] 14.6 % Normal 11.5-15.0 [facility] Comment on above: Order Comment: Speci men Type: BLOOD SPECIMENOrdering Facility: [facility] Address: [address] [place] [address] Performed By: #### 5 8410-2 ####[facility] LABORATORYCLIA [id number] [address] STATES OF [facility] Hematocrit (Bld) [Volume fraction] 30.7 % Low 36.0-46.0 [facility] Comment on above: Order Comment: Speci men Type: BLOOD SPECIMENOrdering Facility: [facility] Address: [address] [place] [address] Performed By: #### 5 8410-2 ####[facility] LABORATORYCLIA [id number] [address] Hemoglobin (Bld) [Mass/Vol] 9.9 g/dL Low 11.5-15.5 [facility] Comment on above: Order Comment: Speci men Type: BLOOD SPECIMENOrdering Facility: [facility] Address: [address] [place] [address] Performed By: #### 5 8410-2 ####[facility] LABORATORYCLIA [id number] [address] MCH (RBC) [Entitic mass] 32.0 pg Normal 26.0-34.0 [facility] Comment on above: Order Comment: Speci men Type: BLOOD SPECIMENOrdering Facility: [facility] Address: [address] [place] [address] Performed By: #### 5 8410-2 ####[facility] LABORATORYCLIA [id number] [address] [place] MCHC (RBC) [Mass/Vol] 32.2 g/dL Normal 30.5-36.0 [facility] Comment on above: Order Comment: Speci men Type: BLOOD SPECIMENOrdering Facility: [facility] Address: [address] [place] [address] Performed By: #### 5 8410-2 ####[facility] LABORATORYCLIA [id number] [address] STATES OF [facility] MCV (RBC) [Entitic vol] 99.4 fL Normal 80.0-100.0 [facility] Comment on above: Order Comment: Speci men Type: BLOOD SPECIMENOrdering Facility: [facility] Address: [address] [place] [address] Performed By: #### 5 8410-2 ####[facility] LABORATORYCLIA [id number] [address] STATES OF [facility] Nucleated RBC (Bld) [#/Vol] 0.02 10*3/uL High <0.01 [facility] Comment on above: Order Comment: Speci men Type: BLOOD SPECIMENOrdering Facility: [facility] Address: [address] [place] [address] Performed By: #### 5 8410-2 ####[facility] LABORATORYCLIA [id number] [address] [place] Platelet mean volume (Bld) [Entitic vol] 11.8 fL Normal 9.0-12.7 [facility] Comment on above: Order Comment: Speci men Type: BLOOD SPECIMENOrdering Facility: [facility] Address: [address] [place] [address] Performed By: #### 5 8410-2 ####[facility] LABORATORYCLIA [id number] [address] [place] Platelets (Bld) [#/Vol] 74 10*3/uL Low 150-400 [facility] Comment on above: Order Comment: Speci men Type: BLOOD SPECIMENOrdering Facility: [facility] Address: [address] [place] [address] Result Comment: No c lot detected. Performed By: #### 5 8410-2 ####[facility] LABORATORYCLIA [id number] [address] RBC (Bld) [#/Vol] 3.09 10*6/uL Low 3.90-5.20 [facility] Comment on above: Order Comment: Speci men Type: BLOOD SPECIMENOrdering Facility: [facility] Address: [address] [place] [address] Performed By: #### 5 8410-2 ####[facility] LABORATORYCLIA [id number] [address] WBC (Bld) [#/Vol] 15.05 10*3/uL High 3.70-11.00 [facility] Comment on above: Order Comment: Speci men Type: BLOOD SPECIMENOrdering Facility: [facility] Address: [address] [place] [address] Performed By: #### 5 8410-2 ####[facility] LABORATORYCLIA [id number] [address] [place] CONSULTon 12-19-2022 CONSULT Normal [facility] CONSULT PROGon 12-19-2022 CONSULT PROG Normal [facility] CONSULT PROG Normal [facility] Comprehensive metabolic 2000 panelon 12-19-2022 Albumin [Mass/Vol] 2.6 g/dL Low 3.9-4.9 [facility] Comment on above: Order Comment: Speci men Type: BLOOD SPECIMENOrdering Facility: [facility] Address: [address] [place] [address] Performed By: #### 2 777-1, 33504-4, 31646-3, 04240-2 ####[facility] LABORATORYCLIA [id number] [address] [place] ALP [Catalytic activity/Vol] 75 U/L Normal 34-123 [facility] Comment on above: Order Comment: Speci men Type: BLOOD SPECIMENOrdering Facility: [facility] Address: [address] [place] [address] Performed By: #### 2 777-1, 40741-4, , ####[facility] LABORATORYCLIA [id number] [place] [address] [place] ALT With P-5'-P [Catalytic activity/Vol] 20 U/L Normal 7-38 [facility] Comment on above: Order Comment: Speci men Type: BLOOD SPECIMENOrdering Facility: [facility] Address: [address] [place] [address] Performed By: #### 2 777-1, 96689-0, , ####[facility] LABORATORYCLIA [id number] [address] STATES OF [facility] Anion gap [Moles/Vol] 10 mmol/L Normal 9-18 [facility] Comment on above: Order Comment: Speci men Type: BLOOD SPECIMENOrdering Facility: [facility] Address: [address] [place] [address] Performed By: #### 2 777-1, , , ####[facility] LABORATORYCLIA [id number] [address] [place] AST With P-5'-P [Catalytic activity/Vol] 40 U/L High 13-35 [facility] Comment on above: Order Comment: Speci men Type: BLOOD SPECIMENOrdering Facility: [facility] Address: [address] [place] [address] Performed By: #### 2 777-1, , , ####[facility] LABORATORYCLIA [id number] [place] [address] [place] Bilirubin [Mass/Vol] 0.6 mg/dL Normal 0.2-1.3 [facility] Comment on above: Order Comment: Speci men Type: BLOOD SPECIMENOrdering Facility: [facility] Address: [address] [place] [address] Performed By: #### 2 777-1, 12573-3, , ####[facility] LABORATORYCLIA [id number] [place] [address] [place] Calcium [Mass/Vol] 8.7 mg/dL Normal 8.5-10.2 [facility] Comment on above: Order Comment: Speci men Type: BLOOD SPECIMENOrdering Facility: [facility] Address: [address] [place] [address] Performed By: #### 2 777-1, 26448-8, , ####[facility] LABORATORYCLIA [id number] [place] [address] [place] Chloride [Moles/Vol] 111 mmol/L High 97-105 [facility] Comment on above: Order Comment: Speci men Type: BLOOD SPECIMENOrdering Facility: [facility] Address: [address] [place] [address] Performed By: #### 2 777-1, 29849-0, , ####[facility] LABORATORYCLIA [id number] [place] [address] [place] CO2 [Moles/Vol] 21 mmol/L Low 22-30 [facility] Comment on above: Order Comment: Speci men Type: BLOOD SPECIMENOrdering Facility: [facility] Address: [address] [place] [address] Performed By: #### 2 777-1, 77591-6, , ####[facility] LABORATORYCLIA [id number] [place] [address] [place] Creatinine [Mass/Vol] 0.71 mg/dL Normal 0.58-0.96 [facility] Comment on above: Order Comment: Speci men Type: BLOOD SPECIMENOrdering Facility: [facility] Address: [address] [place] [address] Performed By: #### 2 777-1, 22999-1, , ####[facility] [id number] [address] OF [facility] ESTIMATED GLOMERULAR FILTRATION RATE 91 mL/min/1.73m??? Normal >=60 [facility] Comment on above: Order Comment: Cary lujan Type: BLOOD SPECIMENOrdering Facility: [facility] Address: [address] [place], [place] [address] Result Comment: Mariely mated Glomerular Filtration Rate [...] actual GFR. Performed By: #### 2 777-1, 84943-6, , ####[facility]ITALIA [id number] [address] [place] Glucose [Mass/Vol] 94 mg/dL Normal 74-99 [facility] Comment on above: Order Comment: Cary lujan Type: BLOOD SPECIMENOrdering Facility: [facility] Address: [address] [place] [address] Result Comment: The [place] Diabetes Association (ADA) provides guidance for cutoff [...] Standards of Medical Care in Diabetes 2016, [place] [employer]. Diabetes Care. 2016.39(Suppl 1). Performed By: #### 2 777-1, 19800-4, , ####[facility] LABORATORYCLIA [id number] [place] [address] [place] Potassium [Moles/Vol] 3.9 mmol/L Normal 3.7-5.1 [facility] Comment on above: Order Comment: Speci men Type: BLOOD SPECIMENOrdering Facility: [facility] Address: [address] [place] [address] Performed By: #### 2 777-1, 43250-9, , ####[facility] LABORATORYCLIA [id number] [place] [address] [place] Protein [Mass/Vol] 4.9 g/dL Low 6.3-8.0 [facility] Comment on above: Order Comment: Speci men Type: BLOOD SPECIMENOrdering Facility: [facility] Address: [address] [place] [address] Performed By: #### 2 777-1, 79161-3, , ####[facility] LABORATORYCLIA [id number] [place] [address] [place] Sodium [Moles/Vol] 142 mmol/L Normal 136-144 [facility] Comment on above: Order Comment: Speci men Type: BLOOD SPECIMENOrdering Facility: [facility] Address: [address] [place] [address] Performed By: #### 2 777-1, 21965-3, , ####[facility] LABORATORYCLIA [id number] [place] [id number] [place] Urea nitrogen [Mass/Vol] 27 mg/dL High 7-21 [facility] Comment on above: Order Comment: Speci men Type: BLOOD SPECIMENOrdering Facility: [facility] Address: [address] [place] [address] Performed By: #### 2 777-1, 61940-4, , 50307-2 ####[facility] LABORATORYCLIA [id number] [address] [place] Lipid 1996 panelon 3 Cholesterol [Mass/Vol] 131 mg/dL Normal <200 [facility] Comment on above: Order Comment: Speci men Type: BLOOD SPECIMENOrdering Facility: [facility] Address: [address] [place] [address] Result Comment: <200 mg/dL, Desirable 200-239 mg/dL, Borderline high>239 mg/dL, High Performed By: #### 2 777-1, 51997-9, , ####[facility] LABORATORYCLIA [id number] [address] [place] Cholesterol in HDL [Mass/Vol] 34 mg/dL Low >39 [facility] Comment on above: Order Comment: Rejii men Type: BLOOD SPECIMENOrdering Facility: [facility] Address: [address] [place] [address] Result Comment: 40-5 9 mg/dL, Acceptable>59 mg/dL, High: Negative risk factor for coronary heart disease<40 mg/dL, Low: Positive risk factor for coronary heart disease Performed By: #### 2 777-1, 66299-9, , ####[facility] LABORATORYCLIA [id number] [address] Cholesterol in LDL [Mass/Vol] 79 mg/dL Normal <100 [facility] Comment on above: Order Comment: Speci tai Type: BLOOD SPECIMENOrdering Facility: [facility] Address: [address] [place] [address] Result Comment: <100 mg/dL, Optimal 100-129 mg/dL, Near optimal/above optimal 130-159 mg/dL, Borderline high 160-189 mg/dL, High>189 mg/dL, Very highSecondary prevention optimal LDL Cholesterol levels are recommended to be < 70 mg/dL Performed By: #### 2 777-1, 07338-5, , 20235-7 ####[facility] LABORATORYCLIA [id number] [address] [place] Cholesterol in LDL/Cholesterol in HDL [Mass ratio] 2.32 {ratio} Normal <2.54 [facility] Comment on above: Order Comment: Speci men Type: BLOOD SPECIMENOrdering Facility: [facility] Address: [address] [place] [address] Result Comment: Refe danettece:1. National Cholesterol Education Program ATP III Guideline At-A-Glance Quick Desk Reference: National Heart, Lung, and Blood [place]. National Institutes of Health. 2001: NIH Publication No. 01-3305.2. An International Atherosclerosis Society position paper: global recommendations for the management of dyslipidemia: executive summary, Atherosclerosis. 2014: 232(2):410-413. Performed By: #### 2 777-1, 89072-1, , ####[facility] SERVICESCLIA [id number] [address] Cholesterol in VLDL [Mass/Vol] 18 mg/dL Normal <30 [facility] Comment on above: Order Comment: Speci men Type: BLOOD SPECIMENOrdering Facility: [facility] Address: [address] [place] [address] Performed By: #### 2 777-1, , , ####[facility] SERVICESCLIA [id number] [address] Cholesterol non HDL [Mass/Vol] 97 mg/dL Normal <130 [facility] Comment on above: Order Comment: Rejii men Type: BLOOD SPECIMENOrdering Facility: [facility] Address: [address] [place] [address] Result Comment: <130 mg/dL, Optimal 130-159 mg/dL, Near optimal/above optimal 160-189 mg/dL, Borderline high 190-219 mg/dL, High>219 mg/dL, Very highSecondary prevention optimal non HDL Cholesterol levels are recommended to be <100 mg/dL Performed By: #### 2 777-1, 36075-8, , ####[facility] LABORATORYCLIA [id number] [address] [place] Cholesterol.total/Cho lesterol in HDL [Mass ratio] 3.85 {ratio} Normal <5.10 [facility] Comment on above: Order Comment: Speci men Type: BLOOD SPECIMENOrdering Facility: [facility] Address: [address] [place] [address] Performed By: #### 2 777-1, 27966-5, , ####[facility] LABORATORYCLIA [id number] [address] FASTING TIME Normal [facility] Comment on above: Order Comment: Speci men Type: BLOOD SPECIMENOrdering Facility: [facility] Address: [address] [place] [address] Result Comment: Unkn own Performed By: #### 2 777-1, 70303-8, , ####[facility] LABORATORYCLIA [id number] [address] Triglyceride [Mass/Vol] 89 mg/dL Normal <150 [facility] Comment on above: Order Comment: Speci men Type: BLOOD SPECIMENOrdering Facility: [facility] Address: [address] [place] [address] Result Comment: <150 mg/dL, Normal 150-199 mg/dL, Borderline high 200-499 mg/dL, High>499 mg/dL, Very high Performed By: #### 2 777-1, 48403-6, , ####[facility] LABORATORYCLIA [id number] [address] [place] MRI BRAIN WO/W IVCONon 12-19 MRI BRAIN WO/W IVCON Normal [facility] Magnesium SerPl-mCncon 12-19 Magnesium [Mass/Vol] 1.9 mg/dL Normal 1.7-2.3 [facility] Comment on above: Order Comment: Speci men Type: BLOOD SPECIMENOrdering Facility: [facility] Address: [address] [place] [address] Performed By: #### 2 777-1, 02401-9, 41705-3, 43278-1 ####[facility] LABORATORYCLIA [id number] [address] [place] Microbial respiratory cultur eOrdered By: Dr. Pham on 12-19-2022 Bacteria identified Respiratory culture Nom (Unsp spec) [facility] NURSING PROGon 12-19-2022 NURSING PROG Normal [facility] NURSING PROG Normal [facility] NUTRITIONon 12-19-2022 NUTRITION Normal [facility] PT panel Coag (PPP)on 2022 INR Coag (PPP) [Relative time] 1.0 {INR} Normal 0.9-1.3 [facility] Comment on above: Order Comment: Speci men Type: BLOOD SPECIMENOrdering Facility: [facility] Address: [address] [place] [id number] Result Comment: Adele min K Antagonist (VKA) Therapeutic Range: INR 2 to 3 (Target INR of 2.5)Note: For patients treated with VKA drugs, such as warfarin, the [place] [employer] 2012 Guideline recommends [...] al. Chest 2012, 141:7S-47SNishimlexi RA, et al. JACC 2017, 70: 252-289 Performed By: #### 3 4528-0, 17747-9 ####[facility] LABORATORYCLIA [id number] [place] [id number] [place] PT Coag (PPP) [Time] 10.6 s Normal 9.7-13.0 [facility] Comment on above: Order Comment: Speci men Type: BLOOD SPECIMENOrdering Facility: [facility] Address: [address] [place] [address] Performed By: #### 3 4528-0, 83196-5 ####[facility] LABORATORYCLIA [id number] [address] STATES OF [facility] Phosphate SerPl-mCncon 12-19 Phosphate [Mass/Vol] 1.8 mg/dL Low 2.7-4.8 [facility] Comment on above: Order Comment: Speci men Type: BLOOD SPECIMENOrdering Facility: [facility] Address: [address] [place] [address] Performed By: #### 2 777-1, 10404-3, 46430-9, 39060-2 ####[facility] LABORATORYCLIA [id number] [address] OF [facility] aPTT PPPon 12-19-2022 aPTT Coag (PPP) [Time] 23.9 s Normal 23.0-32.4 [facility] Comment on above: Order Comment: [facility] Type: BLOOD SPECIMENOrdering Facility: [facility] Address: [address] [place] [address] Performed By: #### 3 4528-0, 54659-5 ####[facility] LABORATORYCLIA [id number] [address] [place] ALLIED HEALTHon 12-18-2022 ALLIED HEALTH Normal [facility] ALLIED HEALTH Normal [facility] APAP SerPl-mCncon 12-18-2022 Acetaminophen [Mass/Vol] ug/mL Low 10-30 [facility] Comment on above: Order Comment: Speci [facility] Type: BLOOD SPECIMENOrdering Facility: [facility] Address: [address] [place] [address] Result Comment: Toxi c > 150 ug/mL 4 hours post ingestionThe Gema Melissa nomogram can be used to estimate the probability of hepatotoxicity via the relationship of plasma acetaminophen concentration to the post ingestion interval. (Petra. Pediatrics. 1975. 55:871 to 876 and Rumack et al. Arch Operator Prefinish Med. 1981. 141:380 to 385).Reference ranges and high/low indicator flags are provided as general guidelines only. The treating physician must determine appropriate target levels/dosing based on the specific clinical situation. Performed By: #### 3 298-7, 4024-6 ####[facility] LABORATORYCLIA [id number] [address] OF [facility] Absolute lymphocyte countOrd ered By: Dr. Alonzo on 12-18-2022 Lymphocytes Auto (Unsp spec) [#/Vol] 0.44 10*3/uL 0.83-4.51 [facility] Ammonia Plas-sCncon 12-19-19 23 Ammonia (P) [Moles/Vol] 16 umol/L Normal [facility] Comment on above: Order Comment: Speci men Type: BLOOD SPECIMENOrdering Facility: [facility] Address: [address] [place], [place] [id number] Performed By: #### 1 6362-6 ####[facility] LABORATORYCLIA [id number] [address] Bacteria Bld Culton 12-19-19 23 Bacteria identified Cx Nom (Bld) CULTURE, BLOOD: No growth 5 days Normal [facility] Comment on above: Performed By: #### 6 00-7 ####[facility] LABORATORYCLIA [id number] [address] Bacteria Ur Culton 3 Bacteria identified Cx Nom (U) CULTURE, URINE: No growth (<1,000 CFU/ml) Normal [facility] Comment on above: Performed By: #### 6 30-4 ####[facility] LABORATORYCLIA [id number] [address] [place] Basophil percentageOrdered B y: Dr. Robert on 12-18-2022 Basophil percentage 1.7 mg/dL 2.5-4.9 [facility] Basophil percentageOrdered B y: Dr. Alonzo on 12-18-2022 Basophils/100 WBC (Bld) 0.2 % 0-1 [facility] Bilirubin [Mass/Vol] 1.20 mg/dL 0.20-1.00 [facility] Comment on above: For patients on eltr ombopag therapy, use of Dimension Burnett TBIL is not recommended. Chloride [Moles/Vol] 112 mmol/L 98-107 [facility] Eosinophils/100 WBC (Bld) 0.0 % 0-5 [facility] Glucose [Mass/Vol] 135 mg/dL 74-106 [facility] Comment on above: Fasting Glucose resu lt greater than or equal to 126 mg/dL suggests DIABETES MELLITUS per A.D.A. criteria. Neutrophils (Bld) [#/Vol] 10.6 10*3/uL 2.0-7.7 [facility] Neutrophils/100 WBC (Bld) 92.6 % 47-70 [facility] Potassium [Moles/Vol] 3.4 mmol/L 3.5-5.1 [facility] Protein [Mass/Vol] 5.2 g/dL 6.4-8.2 [facility] Sodium [Moles/Vol] 143 mmol/L 136-145 [facility] WBC (Bld) [#/Vol] 11.5 10*3/uL 4.4-11.0 [facility] Blood erythrocytes count (nu mber/volume)Ordered By: Dr. Alonzo on 12-18-2022 RBC (Bld) [#/Vol] 3.88 10*6/uL 4.2-5.4 [facility] Blood hemoglobin measurement (mass/volume)Ordered By: Dr. Alonzo on 12-18-2022 Hemoglobin (Bld) [Mass/Vol] 12.8 g/dL 12.0-15.0 [facility] Blood lymphocytes/100 leukoc ytesOrdered By: Dr. Alonzo on 12-18-2022 Lymphocytes/100 WBC (Bld) 3.8 % 19-41 [facility] Blood monocytes/100 leukocyt esOrdered By: Dr. Alonzo on 12-18-2022 Monocytes/100 WBC (Bld) 2.6 % 0-10 [facility] Blood platelet adequacy dete ction by light microscopyOrdered By: Dr. Alonzo on 12-18-2022 Platelets LM Ql (Bld) MKD DEC ADEQ [facility] Blood platelet mean volumeOr dered By: Dr. Alonzo on 12-18-2022 Platelet mean volume (Bld) [Entitic vol] TNP [facility] Comment on above: Test not performed C diff Tox gens Stl Ql CY+p robeon 12-18-2022 C. difficile toxin genes CY+probe Ql (Stl) Positive Abnormal Negative for C. difficile toxin by PCR [facility] Comment on above: Order Comment: Speci men Type: STOOL SPECIMENOrdering Facility: [facility] Address: [address] [place] [address] Result Comment: A po sitive PCR result [...] specimen submission. Performed By: #### Tarsha ALVARADO, 73419-3 ####[facility] LABORATORYCLIA [id number] [place] [address] [place] C. DIFFICILE TOXIN BY EIAon 12-18-2022 C. difficile toxin A+B IA Ql (Stl) Not detected Normal Negative for C. difficile toxin [facility] Comment on above: Order Comment: Speci men Type: STOOL SPECIMENOrdering Facility: [facility] Address: [address] [place] [address] Result Comment: Toxi n EIA is less sensitive than cell cytotoxin and PCR assays. Clinical correlation of PCR positive/toxin EIA negative results is required to distinguish C. difficle colonization from disease. Performed By: #### Tarsha ALVARADO, 74731-2 ####[facility] LABORATORYCLIA [id number] [place] [address] [place] CBC W Auto Differential pane l (Bld)on 12-18-2022 Basophils (Bld) [#/Vol] 10*3/uL Normal <0.11 [facility] Comment on above: Order Comment: Speci men Type: BLOOD SPECIMENOrdering Facility: [facility] Address: [address] [place] [address] Performed By: #### 5 7021-8 ####[facility] LABORATORYCLIA [id number] [address] Basophils/100 WBC (Bld) 0.1 % Normal [facility] Comment on above: Order Comment: Speci men Type: BLOOD SPECIMENOrdering Facility: [facility] Address: [address] [place] [address] Performed By: #### 5 7021-8 ####[facility]ORATORYCLIA [id number] [address] OF [facility] Differential cell count method Nom (Bld) Auto Normal [facility] Comment on above: Order Comment: Speci men Type: BLOOD SPECIMENOrdering Facility: [facility] Address: [address] [place] [address] Performed By: #### 5 7021-8 ####[facility] LABORATORYCLIA [id number] [place] [address] [place] Eosinophils (Bld) [#/Vol] 10*3/uL Normal <0.46 [facility] Comment on above: Order Comment: Speci men Type: BLOOD SPECIMENOrdering Facility: [facility] Address: [address] [place] [address] Performed By: #### 5 7021-8 ####[facility] LABORATORYCLIA [id number] [address] [place] Eosinophils/100 WBC (Bld) 0.0 % Normal [facility] Comment on above: Order Comment: Speci men Type: BLOOD SPECIMENOrdering Facility: [facility] Address: [address] [place] [address] Performed By: #### 5 7021-8 ####[facility]ORATORYCLIA [id number] [address] [place] Erythrocyte distribution width (RBC) [Ratio] 14.6 % Normal 11.5-15.0 [facility] Comment on above: Order Comment: Speci men Type: BLOOD SPECIMENOrdering Facility: [facility] Address: [address] [place] [address] Performed By: #### 5 7021-8 ####[facility] LABORATORYCLIA [id number] [address] [place] Hematocrit (Bld) [Volume fraction] 33.1 % Low 36.0-46.0 [facility] Comment on above: Order Comment: Speci men Type: BLOOD SPECIMENOrdering Facility: [facility] Address: [address] [place] [address] Performed By: #### 5 7021-8 ####[facility] LABORATORYCLIA [id number] [address] [place] Hemoglobin (Bld) [Mass/Vol] 11.2 g/dL Low 11.5-15.5 [facility] Comment on above: Order Comment: Speci men Type: BLOOD SPECIMENOrdering Facility: [facility] Address: [address] [place] [address] Performed By: #### 5 7021-8 ####[facility] LABORATORYCLIA [id number] [address] [place] Immature granulocytes (Bld) [#/Vol] 0.11 10*3/uL High <0.10 [facility] Comment on above: Order Comment: Speci men Type: BLOOD SPECIMENOrdering Facility: [facility] Address: [address] [place] [address] Performed By: #### 5 7021-8 ####[facility] LABORATORYCLIA [id number] [address] [place] Immature granulocytes/100 WBC (Bld) 0.7 % Normal [facility] Comment on above: Order Comment: Speci men Type: BLOOD SPECIMENOrdering Facility: [facility] Address: [address] [place] [address] Performed By: #### 5 7021-8 ####[facility] LABORATORYCLIA [id number] [place] [address] [place] Lymphocytes (Bld) [#/Vol] 0.63 10*3/uL Low 1.00-4.00 [facility] Comment on above: Order Comment: Speci men Type: BLOOD SPECIMENOrdering Facility: [facility] Address: [address] [place] [address] Performed By: #### 5 7021-8 ####[facility] LABORATORYCLIA [id number] [address] Lymphocytes/100 WBC (Bld) 4.1 % Normal [facility] Comment on above: Order Comment: Speci men Type: BLOOD SPECIMENOrdering Facility: [facility] Address: [address] [place] [address] Performed By: #### 5 7021-8 ####[facility] LABORATORYCLIA [id number] [place] MCH (RBC) [Entitic mass] 32.7 pg Normal 26.0-34.0 [facility] Comment on above: Order Comment: Speci men Type: BLOOD SPECIMENOrdering Facility: [facility] Address: [address] [place] [address] Performed By: #### 5 7021-8 ####[facility] LABORATORYCLIA [id number] [address] MCHC (RBC) [Mass/Vol] 33.8 g/dL Normal 30.5-36.0 [facility] Comment on above: Order Comment: Speci men Type: BLOOD SPECIMENOrdering Facility: [facility] Address: [address] [place] [address] Performed By: #### 5 7021-8 ####[facility] LABORATORYCLIA [id number] [address] MCV (RBC) [Entitic vol] 96.8 fL Normal 80.0-100.0 [facility] Comment on above: Order Comment: Speci men Type: BLOOD SPECIMENOrdering Facility: [facility] Address: [address] [place] [address] Performed By: #### 5 7021-8 ####[facility] LABORATORYCLIA [id number] [place] [address] [place] Monocytes (Bld) [#/Vol] 0.97 10*3/uL High <0.87 [facility] Comment on above: Order Comment: Speci men Type: BLOOD SPECIMENOrdering Facility: [facility] Address: [address] [place] [address] Performed By: #### 5 7021-8 ####[facility] LABORATORYCLIA [id number] [address] [place] Monocytes/100 WBC (Bld) 6.3 % Normal [facility] Comment on above: Order Comment: Speci men Type: BLOOD SPECIMENOrdering Facility: [facility] Address: [address] [place] [address] Performed By: #### 5 7021-8 ####[facility] LABORATORYCLIA [id number] [address] [place] Neutrophils (Bld) [#/Vol] 13.77 10*3/uL High 1.45-7.50 [facility] Comment on above: Order Comment: Speci men Type: BLOOD SPECIMENOrdering Facility: [facility] Address: [address] [place] [address] Performed By: #### 5 7021-8 ####[facility] LABORATORYCLIA [id number] [address] [place] Neutrophils/100 WBC (Bld) 88.8 % Normal [facility] Comment on above: Order Comment: Speci men Type: BLOOD SPECIMENOrdering Facility: [facility] Address: [address] [place] [address] Performed By: #### 5 7021-8 ####[facility] LABORATORYCLIA [id number] [address] [place] Nucleated RBC (Bld) [#/Vol] 10*3/uL Normal <0.01 [facility] Comment on above: Order Comment: Speci men Type: BLOOD SPECIMENOrdering Facility: [facility] Address: [address] [place] [address] Performed By: #### 5 7021-8 ####[facility] LABORATORYCLIA [id number] [address] [place] Nucleated RBC/100 WBC (Bld) [Ratio] 0.0 /100 WBC Normal [facility] Comment on above: Order Comment: Speci men Type: BLOOD SPECIMENOrdering Facility: [facility] Address: [address] [place] [address] Performed By: #### 5 7021-8 ####[facility] LABORATORYCLIA [id number] [place] [address] [place] Platelet mean volume (Bld) [Entitic vol] Normal [facility] Comment on above: Order Comment: Speci men Type: BLOOD SPECIMENOrdering Facility: [facility] Address: [address] [place] [address] Result Comment: Unab le to Report. Performed By: #### 5 7021-8 ####[facility] LABORATORYCLIA [id number] [address] [place] Platelets (Bld) [#/Vol] 29 10*3/uL Low 150-400 [facility] Comment on above: Order Comment: Speci men Type: BLOOD SPECIMENOrdering Facility: [facility] Address: [address] [place] [address] Result Comment: No c lot detected. Performed By: #### 5 7021-8 ####[facility] LABORATORYCLIA [id number] [place] [address] [place] RBC (Bld) [#/Vol] 3.42 10*6/uL Low 3.90-5.20 [facility] Comment on above: Order Comment: Speci men Type: BLOOD SPECIMENOrdering Facility: [facility] Address: [address] [place] [address] Performed By: #### 5 7021-8 ####[facility] LABORATORYCLIA [id number] [place] [address] [place] WBC (Bld) [#/Vol] 15.50 10*3/uL High 3.70-11.00 [facility] Comment on above: Order Comment: Speci men Type: BLOOD SPECIMENOrdering Facility: [facility] Address: [address] [place] [address] Performed By: #### 5 7021-8 ####[facility] LABORATORYCLIA [id number] [place] [address] [place] [facility] CBC W Ordered Manual Differe ntial panel (Bld)on 12-18-2022 ANISOCYTOSIS Present Normal [facility] Comment on above: Order Comment: Speci men Type: BLOOD SPECIMENOrdering Facility: [facility] Address: [address] [place] [address] Performed By: #### 5 7782-5, STFREV ####[facility] LABORATORYCLIA [id number] [address] STATES OF [facility] Basophils (Bld) [#/Vol] 0.00 10*3/uL Normal <0.11 [facility] Comment on above: Order Comment: Speci men Type: BLOOD SPECIMENOrdering Facility: [facility] Address: [address] [place] [address] Performed By: #### 5 7782-5, STFREV ####[facility] LABORATORYCLIA [id number] [address] STATES [facility] Basophils/100 WBC (Bld) 0.0 % Normal [facility] Comment on above: Order Comment: Speci men Type: BLOOD SPECIMENOrdering Facility: [facility] Address: [address] [place] [address] Performed By: #### 5 7782-5, STFREV ####[facility] LABORATORYCLIA [id number] [address] Differential cell count method Nom (Bld) Manual Normal [facility] Comment on above: Order Comment: Speci men Type: BLOOD SPECIMENOrdering Facility: [facility] Address: [address] [place] [address] Performed By: #### 5 7782-5, STFREV ####[facility] LABORATORYCLIA [id number] [address] OF [facility] Eosinophils (Bld) [#/Vol] 0.00 10*3/uL Normal <0.46 [facility] Comment on above: Order Comment: Speci men Type: BLOOD SPECIMENOrdering Facility: [facility] Address: [address] [place] [address] Performed By: #### 5 7782-5, STFREV ####[facility] LABORATORYCLIA [id number] [address] Eosinophils/100 WBC (Bld) 0.0 % Normal [facility] Comment on above: Order Comment: Speci men Type: BLOOD SPECIMENOrdering Facility: [facility] Address: [address] [place] [address] Performed By: #### 5 7782-5, STFREV ####[facility] LABORATORYCLIA [id number] [address] Erythrocyte distribution width (RBC) [Ratio] 14.6 % Normal 11.5-15.0 [facility] Comment on above: Order Comment: Speci men Type: BLOOD SPECIMENOrdering Facility: [facility] Address: [address] [place] [address] Performed By: #### 5 7782-5, STFREV ####[facility] LABORATORYCLIA [id number] [address] Hematocrit (Bld) [Volume fraction] 31.2 % Low 36.0-46.0 [facility] Comment on above: Order Comment: Speci men Type: BLOOD SPECIMENOrdering Facility: [facility] Address: [address] [place] [address] Performed By: #### 5 7782-5, STFREV ####[facility]ORATORYCLIA [id number] [address] [place] Hemoglobin (Bld) [Mass/Vol] 10.4 g/dL Low 11.5-15.5 [facility] Comment on above: Order Comment: Speci men Type: BLOOD SPECIMENOrdering Facility: [facility] Address: [address] [place] [address] Performed By: #### 5 7782-5, STFREV ####[facility] LABORATORYCLIA [id number] [address] [place] Lymphocytes (Bld) [#/Vol] 0.67 10*3/uL Low 1.00-4.00 [facility] Comment on above: Order Comment: Speci men Type: BLOOD SPECIMENOrdering Facility: [facility] Address: [address] [place] [address] Performed By: #### 5 7782-5, STFREV ####[facility] LABORATORYCLIA [id number] [address] STATES OF [facility] Lymphocytes/100 WBC (Bld) 4.0 % Normal [facility] Comment on above: Order Comment: Speci men Type: BLOOD SPECIMENOrdering Facility: [facility] Address: [address] [place] [address] Performed By: #### 5 7782-5, STFREV ####[facility] LABORATORYCLIA [id number] [address] [place] MCH (RBC) [Entitic mass] 32.8 pg Normal 26.0-34.0 [facility] Comment on above: Order Comment: Speci men Type: BLOOD SPECIMENOrdering Facility: [facility] Address: [address] [place] [address] Performed By: #### 5 7782-5, STFREV ####[facility] LABORATORYCLIA [id number] [address] [place] MCHC (RBC) [Mass/Vol] 33.3 g/dL Normal 30.5-36.0 [facility] Comment on above: Order Comment: Speci men Type: BLOOD SPECIMENOrdering Facility: [facility] Address: [address] [place] [address] Performed By: #### 5 7782-5, STFREV ####[facility]ORATORYCLIA [id number] [place] [address] [place] MCV (RBC) [Entitic vol] 98.4 fL Normal 80.0-100.0 [facility] Comment on above: Order Comment: Speci men Type: BLOOD SPECIMENOrdering Facility: [facility] Address: [address] [place] [address] Performed By: #### 5 7782-5, STFREV ####[facility] LABORATORYCLIA [id number] [address] [place] Monocytes (Bld) [#/Vol] 1.17 10*3/uL High <0.87 [facility] Comment on above: Order Comment: Speci men Type: BLOOD SPECIMENOrdering Facility: [facility] Address: [address] [place] [address] Performed By: #### 5 7782-5, STFREV ####[facility] LABORATORYCLIA [id number] [address] [place] Monocytes/100 WBC (Bld) 7.0 % Normal [facility] Comment on above: Order Comment: Speci men Type: BLOOD SPECIMENOrdering Facility: [facility] Address: [address] [place] [address] Performed By: #### 5 7782-5, STFREV ####[facility] LABORATORYCLIA [id number] [place] [address] [place] Neutrophils (Bld) [#/Vol] 14.93 10*3/uL High 1.45-7.50 [facility] Comment on above: Order Comment: Speci men Type: BLOOD SPECIMENOrdering Facility: [facility] Address: [address] [place] [address] Performed By: #### 5 7782-5, STFREV ####[facility] LABORATORYCLIA [id number] [address] [place] Neutrophils/100 WBC (Bld) 89.0 % Normal [facility] Comment on above: Order Comment: Speci men Type: BLOOD SPECIMENOrdering Facility: [facility] Address: [address] [address] Performed By: #### 5 7782-5, STFREV ####[facility] LABORATORYCLIA [id number] [address] STATES [facility] Nucleated RBC (Bld) [#/Vol] 0.17 10*3/uL High <0.01 [facility] Comment on above: Order Comment: Speci men Type: BLOOD SPECIMENOrdering Facility: [facility] Address: [address] [place] [address] Performed By: #### 5 7782-5, STFREV ####[facility] LABORATORYCLIA [id number] [address] [place] Nucleated RBC/100 WBC (Bld) [Ratio] 1.0 /100 WBC Normal [facility] Comment on above: Order Comment: Speci men Type: BLOOD SPECIMENOrdering Facility: [facility] Address: [address] [address] Performed By: #### 5 7782-5, STFREV ####[facility] LABORATORYCLIA [id number] [address] [place] Pappenheimer bodies LM Ql (Bld) Occasional Normal [facility] Comment on above: Order Comment: Speci men Type: BLOOD SPECIMENOrdering Facility: [facility] Address: [address] [address] Performed By: #### 5 7782-5, STFREV ####[facility] LABORATORYCLIA [id number] [address] [place] Platelet mean volume (Bld) [Entitic vol] 11.9 fL Normal 9.0-12.7 [facility] Comment on above: Order Comment: Speci men Type: BLOOD SPECIMENOrdering Facility: [facility] Address: [address] [address] Performed By: #### 5 7782-5, STFREV ####[facility]ORATORYCLIA [id number] [place] [address] [place] Platelets (Bld) [#/Vol] 64 10*3/uL Low 150-400 [facility] Comment on above: Order Comment: Speci men Type: BLOOD SPECIMENOrdering Facility: [facility] Address: [address] [place] [address] Result Comment: Plat elet count confirmed by manual review of peripheral blood smear. No clot detected. Performed By: #### 5 7782-5, STFREV ####[facility] LABORATORYCLIA [id number] [place] [address] [place] Platelets Estimate (Bld) [#/Vol] Decreased Normal [facility] Comment on above: Order Comment: Speci men Type: BLOOD SPECIMENOrdering Facility: [facility] Address: [address] [place] [address] Performed By: #### 5 7782-5, STFREV ####[facility] LABORATORYCLIA [id number] [address] [place] Polychromasia LM Ql (Bld) Slight Normal [facility] Comment on above: Order Comment: Speci men Type: BLOOD SPECIMENOrdering Facility: [facility] Address: [address] [place] [address] Performed By: #### 5 7782-5, STFREV ####[facility] LABORATORYCLIA [id number] [place] [address] [place] RBC (Bld) [#/Vol] 3.17 10*6/uL Low 3.90-5.20 [facility] Comment on above: Order Comment: Speci men Type: BLOOD SPECIMENOrdering Facility: [facility] Address: [address] [place] [address] Performed By: #### 5 7782-5, STFREV ####[facility] LABORATORYCLIA [id number] [address] [place] RBC FRAGMENTS Few Abnormal None Seen [facility] Comment on above: Order Comment: Speci men Type: BLOOD SPECIMENOrdering Facility: [facility] Address: [place] [address] Performed By: #### 5 7782-5, STFREV ####[facility] LABORATORYCLIA [id number] [address] OF [facility] RED CELL MORPH Reviewed: see result s of individual morphologies Normal [facility] Comment on above: Order Comment: Speci men Type: BLOOD SPECIMENOrdering Facility: [facility] Address: [address] [place] [address] Performed By: #### 5 7782-5, STFREV ####[facility] LABORATORYCLIA [id number] [place] [address] [place] WBC (Bld) [#/Vol] 16.77 10*3/uL High 3.70-11.00 [facility] Comment on above: Order Comment: Speci tai Type: BLOOD SPECIMENOrdering Facility: [facility] Address: [address] [place] [address] Performed By: #### 5 7782-5, STFREV ####[facility] LABORATORYCLIA [id number] [address] [facility] CNCRITCRon 12-18-2022 CNCRITCR Critical Care Transport (CCT) JAZMIN JOHNSON ([id number]) 1950 F T Date Time Provider Department 12/18/22 GERMAINE AVILA During your visit today, we recorded the following information about you: Germaine Avila APRN.CNP 12/18/2022 11:41 AM Signed CRITICAL CARE TRANSPORT MEDICAL CONTROL CONSULT NOTE Patient Name: Jazmin Johnson Service Date: December 18, 2022 Referring Facility: [facility] Accepting Facility: [facility] REASON FOR TRANSPORT: Pt requires specialized neurological [...] reported to be intoxicated) who presented to [facility] for evaluation of seizure activity. Pt [...] confirmed and read back via telephone with [facility] Transport membership sales representative, Daron Kahn RN SIGNATURE: Germaine Avila APRN.[facility] Acute Care Nurse Practitioner Critical Care Transport [...] Status:Closed by MORALES KAHN on 12/18/22 Normal [facility] CONSULTon 12-18-2022 CONSULT Normal [facility] CONSULT Normal [facility] CONSULT PROGon 12-18-2022 CONSULT PROG Normal [facility] SOWMYA DIRECTon 12-18-2022 DAGT, POLYSPECIFIC AHG Negative Normal [facility] Comment on above: Order Comment: Speci men Type: BLOOD SPECIMENOrdering Facility: [facility] Address: [address] [place] [address] Performed By: #### T SCR, DAGT ####[facility] BLOOD BANKCLIA [id number] [address] [place] CT BRAIN WO IVCONon 12-19-19 CT BRAIN WO IVCON Normal [facility] Comprehensive metabolic 2000 panelon 12-18-2022 Albumin [Mass/Vol] 2.7 g/dL Low 3.9-4.9 [facility] Comment on above: Order Comment: Speci men Type: BLOOD SPECIMENOrdering Facility: [facility] Address: [address] [address] Performed By: #### 2 777-1, 01890-5, 54543-1, 20631-7 ####[facility] LABORATORYCLIA [id number] [place] [address] [place] ALP [Catalytic activity/Vol] 76 U/L Normal 34-123 [facility] Comment on above: Order Comment: Speci men Type: BLOOD SPECIMENOrdering Facility: [facility] Address: [address] [place] [address] Performed By: #### 2 777-1, 79233-8, 13318-0, 98982-0 ####[facility] LABORATORYCLIA [id number] [place] [address] [place] ALT With P-5'-P [Catalytic activity/Vol] 24 U/L Normal 7-38 [facility] Comment on above: Order Comment: Speci men Type: BLOOD SPECIMENOrdering Facility: [facility] Address: [address] [place] [address] Performed By: #### 2 777-1, 63155-2, 06995-8, ####[facility] LABORATORYCLIA [id number] [place] [address] [place] Anion gap [Moles/Vol] 9 mmol/L Normal 9-18 [facility] Comment on above: Order Comment: Speci men Type: BLOOD SPECIMENOrdering Facility: [facility] Address: [address] [place] [address] Performed By: #### 2 777-1, 63208-5, 10228-2, ####[facility] LABORATORYCLIA [id number] [place] [address] [place] AST With P-5'-P [Catalytic activity/Vol] 43 U/L High 13-35 [facility] Comment on above: Order Comment: Speci men Type: BLOOD SPECIMENOrdering Facility: [facility] Address: [address] [place] [address] Performed By: #### 2 777-1, 26922-0, 88348-6, ####[facility] LABORATORYCLIA [id number] [place] [address] [place] Bilirubin [Mass/Vol] 0.9 mg/dL Normal 0.2-1.3 [facility] Comment on above: Order Comment: Speci men Type: BLOOD SPECIMENOrdering Facility: [facility] Address: [address] [place], [place] [address] Performed By: #### 2 777-1, 20917-7, 49065-4, 73481-1 ####[facility] LABORATORYCLIA [id number] [place] [address] [place] Calcium [Mass/Vol] 9.7 mg/dL Normal 8.5-10.2 [facility] Comment on above: Order Comment: Speci men Type: BLOOD SPECIMENOrdering Facility: [facility] Address: [address] [place] [address] Performed By: #### 2 777-1, 64251-0, 41904-7, 80234-1 ####[facility] LABORATORYCLIA [id number] [place] [address] [place] Chloride [Moles/Vol] 110 mmol/L High 97-105 [facility] Comment on above: Order Comment: Speci men Type: BLOOD SPECIMENOrdering Facility: [facility] Address: [address] [place] [address] Performed By: #### 2 777-1, 03434-6, 46095-4, 09933-9 ####[facility] SERVICESCLIA [id number] [address] [place] CO2 [Moles/Vol] 21 mmol/L Low 22-30 [facility] Comment on above: Order Comment: Speci men Type: BLOOD SPECIMENOrdering Facility: [facility] Address: [address] [place] [address] Performed By: #### 2 777-1, 96250-4, 83114-0, 07877-7 ####[facility] LABORATORYCLIA [id number] [address] [place] Creatinine [Mass/Vol] 0.72 mg/dL Normal 0.58-0.96 [facility] Comment on above: Order Comment: Speci men Type: BLOOD SPECIMENOrdering Facility: [facility] Address: [address] [place] [address] Performed By: #### 2 777-1, 20696-6, 52552-6, 11139-6 ####[facility] LABORATORYCLIA [id number] [address] ESTIMATED GLOMERULAR FILTRATION RATE 90 mL/min/1.73m??? Normal >=60 [facility] Comment on above: Order Comment: Speci men Type: BLOOD SPECIMENOrdering Facility: [facility] Address: [address] [place] [address] Result Comment: Mariely mated Glomerular Filtration Rate [...] actual GFR. Performed By: #### 2 777-1, 89497-0, 94683-3, 33004-2 ####[facility] LABORATORYCLIA [id number] [place] [address] [place] Glucose [Mass/Vol] 153 mg/dL High 74-99 [facility] Comment on above: Order Comment: Cary lujan Type: BLOOD SPECIMENOrdering Facility: [facility] Address: [address] [place], [place] [address] Result Comment: The [place] [employer] (ADA) provides guidance for cutoff [...] Standards of Medical Care in Diabetes 2016, [place] [employer]. Diabetes Care. 2016.39(Suppl 1). Performed By: #### 2 777-1, 70875-3, 80725-6, 14822-1 ####[facility] LABORATORYCLIA [id number] [place] [address] [place] Potassium [Moles/Vol] 3.2 mmol/L Low 3.7-5.1 [facility] Comment on above: Order Comment: Cary lujan Type: BLOOD SPECIMENOrdering Facility: [facility] Address: [address] [place], [place] [address] Performed By: #### 2 777-1, 76711-2, 42834-2, 06842-7 ####[facility] LABORATORYCLIA [id number] [place] [address] [place] Protein [Mass/Vol] 5.0 g/dL Low 6.3-8.0 [facility] Comment on above: Order Comment: Speci men Type: BLOOD SPECIMENOrdering Facility: [facility] Address: [address] [place] [address] Performed By: #### 2 777-1, 08527-3, 80103-9, 46633-2 ####[facility] LABORATORYCLIA [id number] [place] [address] [place] Sodium [Moles/Vol] 140 mmol/L Normal 136-144 [facility] Comment on above: Order Comment: Speci men Type: BLOOD SPECIMENOrdering Facility: [facility] Address: [address] [place] [address] Performed By: #### 2 777-1, 17750-9, 31394-9, 48747-8 ####[facility] LABORATORYCLIA [id number] [place] [address] [place] Urea nitrogen [Mass/Vol] 38 mg/dL High 7-21 [facility] Comment on above: Order Comment: Speci men Type: BLOOD SPECIMENOrdering Facility: [facility] Address: [address] [place] [address] Performed By: #### 2 777-1, 96106-3, 85833-1, 63320-7 ####[facility] LABORATORYCLIA [id number] [place] [id number] [place] Culture, urineOrdered By: Dr Timothy Han on 12-18-2022 Bacteria identified Cx Nom (U) Escherichia coli [facility] D dimer FEU PPP-mCncon 12-18 [facility] D-dimer FEU (PPP) [Mass/Vol] 29280 ng/mL FEU High <500 [facility] [facility] Comment on above: Order Comment: Speci men Type: BLOOD SPECIMENOrdering Facility: [facility] Address: [address] [place] [address] Performed By: #### 3 255-7, 19374-5, 04038-6, 97718-8 ####[facility] LABORATORYCLIA [id number] [address] [place] Determination of erythrocyte mean corpuscular volume (MCV)Ordered By: Dr. Alonzo on 12-18-2022 MCV (RBC) [Entitic vol] 102.8 fL 81-99 [facility] Comment on above: Delta: 97.8 on 12/17 ECG COMPLETEon 12-18-2022 ECG COMPLETE Normal [facility] Fibrin D-dimer FEU (PPP) [Ma ss/Vol]on 12-18-2022 D DIMER AGE-RELATED CUTOFF 710 ng/mL FEU Normal [facility] Comment on above: Order Comment: Speci men Type: BLOOD SPECIMENOrdering Facility: [facility] Address: [address] [place] [address] Performed By: #### 3 255-7, 58064-4, 47112-3, 29237-7 ####[facility] LABORATORYCLIA [id number] [place] [address] [place] Fibrinogen PPP-mCncon 2022 Fibrinogen Coag (PPP) [Mass/Vol] 238 mg/dL Normal 200-400 [facility] Comment on above: Order Comment: Speci men Type: BLOOD SPECIMENOrdering Facility: [facility] Address: [address] [place] [address] Performed By: #### 3 255-7 ####[facility] LABORATORYCLIA [id number] [address] [place] Fibrinogen Coag (PPP) [Mass/Vol] 135 mg/dL Low 200-400 [facility] Comment on above: Order Comment: Speci men Type: BLOOD SPECIMENOrdering Facility: [facility] Address: [address] [address] Performed By: #### 3 255-7, 77333-0, 19617-2, 94243-0 ####[facility] LABORATORYCLIA [id number] [place] [address] [place] Glucose Glucometer (BldC) [M ass/Vol]Ordered By: Dr. Alonzo on 12-18-2022 Glucose [Mass/Vol] 130 mg/dL 74-106 [facility] Comment on above: MANAGEMENT OF PATIEN T CARE PER NURSING PROTOCOL HBV core Ab Ser Qlon 023 HBV core Ab Ql (S) Negative Normal Negative [facility] Comment on above: Order Comment: Speci men Type: BLOOD SPECIMENOrdering Facility: [facility] Address: [address] [place] [address] Result Comment: No e vidence of current or past infection with Hepatitis B virus. Should recent infection be suspected, repeat testing may be considered 3-4 weeks after this draw. Performed By: #### 1 6933-4 ####[facility] LABCLIA [id number] [facility] [id number] [place] [address] [place] HBV surface Ab Ql (S)on HBV surface Ab Qn (S) 8.87 mIU/mL Low >=11.50 [facility] Comment on above: Order Comment: Speci men Type: BLOOD SPECIMENOrdering Facility: [facility] Address: [address] [place] [address] Performed By: #### 2 2322-2 ####[facility] LABORATORYCLIA [id number] [address] [place] HBV surface Ab Ser Qlon HBV surface Ab Ql (S) Indeterminate Abnormal Positive [facility] Comment on above: Order Comment: Speci men Type: BLOOD SPECIMENOrdering Facility: [facility] Address: [address] [place] [address] Performed By: #### 2 2322-2 ####[facility] LABORATORYCLIA [id number] [address] [place] HBV surface Ag Ser Qlon HBV surface Ag Ql (S) Non-Reactive Normal Nonreactive [facility] Comment on above: Order Comment: Speci men Type: BLOOD SPECIMENOrdering Facility: [facility] Address: [address] [address] Performed By: #### 5 195-3, 95326-8, 44988-7 ####[facility] LABORATORYCLIA [id number] [address] HCV Ab Ser Qlon 12-18-2022 HCV Ab Ql (S) Non-Reactive Normal Nonreactive [facility] Comment on above: Order Comment: Speci men Type: BLOOD SPECIMENOrdering Facility: [facility] Address: [address] [place] [address] Result Comment: The result suggests no evidence of active infection with Hepatitis C virus. Should recent infection be suspected, repeat testing may be considered 4-6 weeks after this draw. Performed By: #### 5 195-3, 97924-1, 76622-9 ####[facility] LABORATORYCLIA [id number] [address] HIV 1+2 Ab IA Qlon 3 HIV 1 and 2 Ab IA.rapid Nom Normal [facility] Comment on above: Order Comment: Speci men Type: BLOOD SPECIMENOrdering Facility: [facility] Address: [address] [place] [address] Result Comment: Test not indicated. Performed By: #### 5 195-3, 57361-9, 47483-6 ####[facility] LABORATORYCLIA [id number] [address] HIV 1+2 Ab+HIV1 p24 Ag IA Ql Non-Reactive Normal Nonreactive [facility] Comment on above: Order Comment: Speci men Type: BLOOD SPECIMENOrdering Facility: [facility] Address: [address] [place] [address] Result Comment: [place] Rev. Code 3701.243(E): This information has been [...] for this assay has moved from Siemens Centaur XP to Cole juan antonio 8000 effective July 17, 2022. Please note there may be a change in the reporting units and/or reference range. Performed By: #### 5 195-3, 77913-1, 28786-7 ####[facility] LABORATORYCLIA [id number] [place], [place] [id number] [place] [address] [place] HIVINT Normal [facility] Comment on above: Order Comment: Speci men Type: BLOOD SPECIMENOrdering Facility: [facility] Address: [address] [place] [address] Result Comment: No e vidence of HIV-1 or HIV-2 infection. Should recent infection be suspected, repeat testing may be considered 2-3 weeks after this draw. Performed By: #### 5 195-3, 48360-1, 51049-6 ####[facility] LABORATORYCLIA [id number] [address] [place] Haptoglob SerPl-mCncon 12-18 Haptoglobin [Mass/Vol] 76 mg/dL Normal 31-238 [facility] Comment on above: Order Comment: Speci men Type: BLOOD SPECIMENOrdering Facility: [facility] Address: [address] [place] [address] Performed By: #### 4 542-7, 2-0 ####[facility] LABORATORYCLIA [id number] [place] [address] [place] Hematocrit Auto (Bld) [Volum e fraction]Ordered By: Dr. Alonzo on 12-18-2022 Hematocrit (Bld) [Volume fraction] 39.9 % 37-47 [facility] LDH SerPl-cCncon 12-18-2022 LDH [Catalytic activity/Vol] 491 U/L High 135-214 [facility] Comment on above: Order Comment: Speci men Type: BLOOD SPECIMENOrdering Facility: [facility] Address: [address] [place] [address] Performed By: #### 4 542-7, 2532-0 ####[facility] LABORATORYCLIA [id number] [place] [id number] [place] Laboratory - Chemistry and C hemistry - challengeOrdered By: Dr. Alonzo on 12-18-2022 ALP [Catalytic activity/Vol] 70 U/L 45-117 [facility] ALT [Catalytic activity/Vol] 37 U/L 13-56 [facility] CO2 [Moles/Vol] 21.0 mmol/L 21.0-32.0 [facility] Globulin (S) [Mass/Vol] 3.2 g/dL 2.2-4.2 [facility] Urea nitrogen/Creatinine [Mass ratio] 42.3 mg/mg 10-20 [facility] Laboratory - Chemistry and C hemistry - challengeOrdered By: Dr. Robert on 12-18-2022 Magnesium [Mass/Vol] 1.6 mg/dL 1.6-2.6 [facility] - Hematology and Cell countsOrdered By: Dr. Alonzo on 12-18-2022 Anisocytosis Ql (Bld) 1+ [facility] Erythrocyte distribution width (RBC) [Entitic vol] 56.1 fL 35.1-43.9 [facility] Erythrocyte distribution width (RBC) [Ratio] 14.7 % 11.6-14.6 [facility] Immature granulocytes/100 WBC (Bld) 0.800 % 0.0-0.9 [facility] Comment on above: IG% - Immature Granu locytes (promyelocytes, myelocytes and metamyelocytes) > 1% indicates that a LEFT SHIFT is Present. MCH (RBC) [Entitic mass] 33.0 pg 27.0-32.0 [facility] Nucleated RBC/100 WBC (Bld) [Ratio] 0 % 0-5 [facility] MCHC Auto (RBC) [Mass/Vol]Or dered By: Dr. Alonzo on 12-18-2022 MCHC (RBC) [Mass/Vol] 32.1 g/dL 32-36 [facility] Macrocytes detectionOrdered By: Dr. Alonzo on 12-18-2022 Macrocytes Ql (Bld) 1+ [facility] Magnesium SerPl-mCncon 12-18 Magnesium [Mass/Vol] 1.4 mg/dL Low 1.7-2.3 [facility] Comment on above: Order Comment: Speci men Type: BLOOD SPECIMENOrdering Facility: [facility] Address: [address] [address] Performed By: #### 2 777-1, 89059-3, 88260-0, 72049-1 ####[facility] LABORATORYCLIA [id number] [address] [place] NURSING PROGon 12-18-2022 NURSING PROG Normal [facility] No Panel InformationOrdered By: Dr. Alonzo on 12-18-2022 Estimated Creatinine Clearance Calc 47.43 ml/min [facility] Estimated GFR (MDRD) Amer 79 mL/min >60 [facility] Comment on above: GFR Calc Estimated GFR (MDRD) Non-Af Amer 66 mL/min >60 [facility] Comment on above: Non- GFR Calc PATHOLOGIST INTERPRETATION C BC/DIFFon 12-18-2022 Supervisor Typesetting review Ifeanyi (Unsp spec) [Interp] Reviewed by Kenzie Cameron MD [facility] Comment on above: Order Comment: Speci men Type: BLOOD SPECIMENOrdering Facility: [facility] Address: [address] [address] Performed By: #### 5 7782-5, STFREV ####[facility] LABORATORYCLIA [id number] [address] STAFF REVIEW, CBCDIF Review of the peripheral smear reveals normocytic anemia, thrombocytopenia and luekocytosis. There are infrequent red cell fragments. Leukocytes have normal morphology. [facility] Comment on above: Order Comment: Speci men Type: BLOOD SPECIMENOrdering Facility: [facility] Address: [address] [address] Performed By: #### 5 7782-5, STFREV ####[facility] LABORATORYCLIA [id number] [address] PT panel Coag (PPP)on 2022 INR Coag (PPP) [Relative time] 1.9 {INR} High 0.9-1.3 [facility] Comment on above: Order Comment: Cary lujan Type: BLOOD SPECIMENOrdering Facility: [facility] Address: [address] [id number] Result Comment: Adele min K Antagonist (VKA) Therapeutic Range: INR 2 to 3 (Target INR of 2.5)Note: For patients treated with VKA drugs, such as warfarin, the [place] [employer] 2012 Guideline recommends [...] al. Chest 2012, 141:7S-47SNishimura RA, et al. [facility] 2017, 70: 252-289 Performed By: #### 3 255-7, 57777-6, 88548-2, 91399-6 ####[facility] SERVICESCLIA [id number] [place] [address] [place] PT Coag (PPP) [Time] 19.8 s High 9.7-13.0 [facility] Comment on above: Order Comment: Cary lujan Type: BLOOD SPECIMENOrdering Facility: [facility] Address: [place] [address] Performed By: #### 3 255-7, 92446-4, 43707-0, 05393-0 ####[facility] LABORATORYCLIA [id number] [place] [address] [place] Phosphate SerPl-mCncon 12-18 Phosphate [Mass/Vol] 1.2 mg/dL Low 2.7-4.8 [facility] Comment on above: Order Comment: Cary lujan Type: BLOOD SPECIMENOrdering Facility: [facility] Address: [address] [phone] Performed By: #### 2 777-1, 44165-8, 94543-9, 40124-9 ####[facility] LABORATORYCLIA [id number] [address] [place] Platelets bldOrdered By: Dr. Alonzo on 12-18-2022 Platelets (Bld) [#/Vol] 19 10*3/uL 150-450 [facility] Comment on above: CRITICAL VALUE VERIF IED. CALLED TO Susan ROSENBERG RN ICU12/18/22 0403 Santhosh Hensley.RESULTS READ BACK BY SAME. Procalcitonin SerPl-mCncon 0 12-18-2022 Procalcitonin [Mass/Vol] 4.83 ng/mL High <0.09 [facility] Comment on above: Order Comment: Speci men Type: BLOOD SPECIMENOrdering Facility: [facility] Address: [address] [place] [address] Result Comment: For a guided interpretation of test results, please visit the Change in Procalcitonin Calculator, [email or web address]. Performed By: #### 2 777-1, 43981-7, 25390-4, 75015-0 ####[facility] LABORATORYIA [id number] [address] Review by pathologistOrdered By: Dr. Alonzo on 12-18-2022 Pathologist review Ifeanyi (Unsp spec) [Interp] Madeline anderson [facility] Pathologist review Ifeanyi (Unsp spec) [Interp] Reviewed [facility] Comment on above: Previous reported re [...] result in uninfected individuals): Not detected Normal [facility] Comment on above: Performed By: #### 9 4500-6 ####[facility] LABORATORYCLIA [id number] [address] [place] STAPH AUREUS PCRon S. aureus and MRSA panel CY+probe (Nose) Normal Negative [facility] Comment on above: Order Comment: Speci men Type: SWAB OF INTERNAL NOSEOrdering Facility: [facility] Address: [address] [place] [address] Result Comment: Nega tive for Staphylococcus aureus by PCR.Negative for MRSA by PCR Performed By: #### S APCR ####[facility] LABORATORYCLIA [id number] [address] [place] Salicylates SerPl-mCncon Salicylates [Mass/Vol] mg/dL Low 3.0-30.0 [facility] Comment on above: Order Comment: Speci men Type: BLOOD SPECIMENOrdering Facility: [facility] Address: [address] [place] [address] Result Comment: The therapeutic range varies and has been reported to be 3.0 to 10.0 mg/dL for anti pyretic/analgesic conditions and 15.0 to 30.0 mg/dL for anti inflammatory/rheumatic fever conditions. Ranges published by the instrument crematorium operator.Reference ranges and high/low indicator flags are provided as general guidelines only. The treating physician must determine appropriate target levels/dosing based on the specific clinical situation. Performed By: #### 3 298-7, 4024-6 ####[facility] LABORATORYCLIA [id number] [place] [address] [place] Serum or plasma albumin cony urement (mass/volume)Ordered By: Dr. Alonzo on 12-18-2022 Albumin [Mass/Vol] 2.0 g/dL 3.2-5.0 [facility] Serum or plasma albumin/glob ulin mass ratioOrdered By: Dr. Alonzo on 12-18-2022 Albumin/Globulin [Mass ratio] 0.6 {ratio} 0.9-2.4 [facility] Serum or plasma calcium cony urement (mass/volume)Ordered By: Dr. Alonzo on 12-18-2022 Calcium [Mass/Vol] 9.8 mg/dL 8.5-10.1 [facility] Serum or plasma creatinine m easurement (mass/volume)Ordered By: Dr. Alonzo on 12-18-2022 Creatinine [Mass/Vol] 0.90 mg/dL 0.55-1.02 [facility] Comment on above: The validity of the calculated GFR & GFRAA in patients over 70 years has not been determined. Clinical correlation is essential. Serum or plasma urea nitroge n measurement (mass/volume)Ordered By: Dr. Alonzo on 12-18-2022 Urea nitrogen [Mass/Vol] 38 mg/dL 7-18 [facility] TYPE + SCREENon 12-18-2022 ABO A Normal [facility] Comment on above: Order Comment: Speci men Type: BLOOD SPECIMENOrdering Facility: [facility] Address: [address] [place] [address] Performed By: #### T SCR, DAGT ####[facility] BLOOD BANKCLIA [id number] [address] HISTORICAL AB SCR STATUS Negative [facility] Comment on above: Order Comment: Speci men Type: BLOOD SPECIMENOrdering Facility: [facility] Address: [address] [place] [address] Performed By: #### T SCR, DAGT ####[facility] BLOOD BANKCLIA [id number] [address] [place] Rh Nom (Bld) Positive Normal [facility] Comment on above: Order Comment: Speci men Type: BLOOD SPECIMENOrdering Facility: [facility] Address: [address] [place] [address] Performed By: #### T SCR, DAGT ####[facility] BLOOD BANKCLIA [id number] [address] [place] TYPE AND SCREEN EXPIRATION 12/21/2022 23:59 Normal [facility] Comment on above: Order Comment: Speci men Type: BLOOD SPECIMENOrdering Facility: [facility] Address: [address] [place] [address] Performed By: #### T HADLEY YEN ####[facility] BLOOD BANKCLIA [id number] [place] [address] [place] Thin prep Papanicolaou smear with manual screeningOrdered By: Dr. Alonzo on 12-18-2022 Thin prep Papanicolaou smear with manual screening 78 U/L 15 [facility] Thin prep Papanicolaou smear with manual screening 10 5 [facility] Urinalysis complete panel (U )on 12-18-2022 Bacteria LM.HPF (Urine sed) [#/Area] Rare Abnormal None Seen [facility] Comment on above: Order Comment: Speci men Type: URINE SPECIMENOrdering Facility: [facility] Address: [address] [place] [address] Performed By: #### 2 4356-8 ####[facility] LABORATORYCLIA [id number] [place] [address] [place] Bilirubin Ql (U) Negative Normal Negative [facility] Comment on above: Order Comment: Speci men Type: URINE SPECIMENOrdering Facility: [facility] Address: [address] [place] [address] Performed By: #### 2 4356-8 ####[facility] LABORATORYCLIA [id number] [place] [address] [place] Clarity (Unsp spec) Clear Normal Clear [facility] Comment on above: Order Comment: Speci men Type: URINE SPECIMENOrdering Facility: [facility] Address: [address] [place] [address] Performed By: #### 2 4356-8 ####[facility] LABORATORYCLIA [id number] [place] [address] [place] Color (U) Yellow Normal yellow [facility] Comment on above: Order Comment: Speci men Type: URINE SPECIMENOrdering Facility: [facility] Address: [address] [place] [address] Performed By: #### 2 4356-8 ####[facility] LABORATORYCLIA [id number] [address] Epithelial cells LM.HPF (Urine sed) [#/Area] Few Abnormal None Seen [facility] Comment on above: Order Comment: Speci men Type: URINE SPECIMENOrdering Facility: [facility] Address: [address] [place] [address] Performed By: #### 2 4356-8 ####[facility] LABORATORYCLIA [id number] [address] Glucose Test strip (U) [Mass/Vol] Negative Normal Trace, Negative [facility] Comment on above: Order Comment: Speci men Type: URINE SPECIMENOrdering Facility: [facility] Address: [address] [place] [address] Performed By: #### 2 4356-8 ####[facility] LABORATORYCLIA [id number] [address] STATES OF [facility] Hemoglobin Ql (U) Trace Normal Negative, Trace [facility] Comment on above: Order Comment: Speci men Type: URINE SPECIMENOrdering Facility: [facility] Address: [address] [place] [address] Performed By: #### 2 4356-8 ####[facility] LABORATORYCLIA [id number] [address] [place] Hyaline casts (Urine sed) [#/Area] 1-3 /LPF Abnormal 0 /LPF [facility] Comment on above: Order Comment: Speci men Type: URINE SPECIMENOrdering Facility: [facility] Address: [address] [place] [address] Performed By: #### 2 4356-8 ####[facility] LABORATORYCLIA [id number] [address] [place] Ketones Ql (U) Trace Normal Negative, Trace [facility] Comment on above: Order Comment: Speci men Type: URINE SPECIMENOrdering Facility: [facility] Address: [address] [place] [address] Performed By: #### 2 4356-8 ####[facility] LABORATORYCLIA [id number] [address] Leukocyte esterase Test strip Ql (U) 25 Jennifer/uL Normal Negative, 25 Jennifer/uL [facility] Comment on above: Order Comment: Speci men Type: URINE SPECIMENOrdering Facility: [facility] Address: [address] [place] [address] Performed By: #### 2 4356-8 ####[facility] LABORATORYCLIA [id number] [address] Nitrite Ql (U) Negative Normal Negative [facility] Comment on above: Order Comment: Speci men Type: URINE SPECIMENOrdering Facility: [facility] Address: [address] [place] [address] Performed By: #### 2 4356-8 ####[facility] LABORATORYCLIA [id number] [address] [place] pH (U) 5.5 [pH] Normal 5.0-8.0 [facility] Comment on above: Order Comment: Speci men Type: URINE SPECIMENOrdering Facility: [facility] Address: [address] [place] [address] Performed By: #### 2 4356-8 ####[facility] LABORATORYCLIA [id number] [address] Protein (U) [Mass/Vol] Trace Normal Trace, Negative [facility] Comment on above: Order Comment: Speci men Type: URINE SPECIMENOrdering Facility: [facility] Address: [address] [place] [address] Performed By: #### 2 4356-8 ####[facility] LABORATORYCLIA [id number] [address] [place] RBC LM.HPF (Urine sed) [#/Area] 6-10 /HPF Abnormal 0-3 /HPF [facility] Comment on above: Order Comment: Speci men Type: URINE SPECIMENOrdering Facility: [facility] Address: [address] [place] [address] Performed By: #### 2 4356-8 ####[facility] LABORATORYCLIA [id number] [address] Specific gravity (U) [Rel density] 1.024 Normal 1.005-1.030 [facility] Comment on above: Order Comment: Speci men Type: URINE SPECIMENOrdering Facility: [facility] Address: [address] [place] [address] Performed By: #### 2 4356-8 ####[facility] LABORATORYCLIA [id number] [address] [place] Urobilinogen Ql (U) Normal Normal Negative [facility] Comment on above: Order Comment: Speci men Type: URINE SPECIMENOrdering Facility: [facility] Address: [address] [place] [address] Performed By: #### 2 4356-8 ####[facility] LABORATORYCLIA [id number] [address] [place] WBC LM.HPF (Urine sed) [#/Area] 6-10 /HPF Abnormal 0-5 /HPF [facility] Comment on above: Order Comment: Speci men Type: URINE SPECIMENOrdering Facility: [facility] Address: [address] [place] [address] Performed By: #### 2 4356-8 ####[facility] LABORATORYCLIA [id number] [address] [place] XR ABDOMEN 1V SUPINEon 12-18 XR ABDOMEN 1V SUPINE Normal [facility] XR CHEST 1V FRONTALon 2022 XR CHEST 1V FRONTAL Normal [facility] XR CHEST 1V FRONTAL Normal [facility] aPTT PPPon 12-18-2022 aPTT Coag (PPP) [Time] 37.9 s High 23.0-32.4 [facility] Comment on above: Order Comment: Speci men Type: BLOOD SPECIMENOrdering Facility: [facility] Address: [address] [phone] Performed By: #### 3 255-7, 49181-0, 52487-7, 79194-7 ####[facility] LABORATORYCLIA [id number] [place] [address] [place] vWF Cp Act/Nor PPP Chroon vWf cleaving protease actual/normal Chromogenic method (PPP) [Rel catalytic activity/Vol] >114 Normal >67 [facility] Comment on above: Order Comment: Speci men Type: BLOOD SPECIMENOrdering Facility: [facility] Address: [address] [address] Result Comment: This test was developed and its performance characteristics determined by [facility]'s [facility] Medicine [place] ([facility]). It has not been cleared or approved by the FDA. -[facility] is regulated under CLIA as qualified to perform high-complexity testing. This test is used for clinical purposes. It should not be regarded as investigational or for research. Performed By: #### 5 3622-7 ####[facility] LAB[facility] [id number] [facility] [id number] [address] [place] Basophil percentageOrdered B y: Dr. Alonzo on 12-17-2022 Ammonia (P) [Moles/Vol] 41.0 umol/L 11-32 [facility] LDH [Catalytic activity/Vol] 1113 U/L 84-246 [facility] Comment on above: Slight Hemolysis, Re sult may be falsely increased. Direct bilirubinOrdered By: Dr. Alonzo on 12-17-2022 Bilirubin.direct [Mass/Vol] 0.97 mg/dL 0.00-0.30 [facility] Comment on above: Specimen is hemolyze d. The presence of hemoglobin can falsley depress direct bilirubin reslts. Collection of a new specimen is suggested if clinicaly indicated. Gram stain for investigation of transfusion reactionOrdered By: Dr. Pham on 12-17-2022 Microscopic observation Gram stain Nom (Unsp spec) [facility] Hemoglobin in reticulocytes (mass per reticulocyte)Ordered By: Dr. Alonzo on 12-17-2022 Hemoglobin (Reticulocytes) [Entitic mass] 36.5 pg 30-35 [facility] Laboratory - Chemistry and C hemistry - challengeOrdered By: Dr. Aldana on 12-17-2022 Free T4 [Mass/Vol] 1.24 ng/dL 0.76-1.46 [facility] No Panel InformationOrdered By: Dr. Alonzo on 12-17-2022 Miscellaneous Test See comment [facility] Comment on above: TEST RESULT LIMITSAD AMTS13 Activity [id number] Activity, 67.0 % >66.8Comment Severe deficiency of DUMKYL07 (less than 10% activity) is arelatively specific finding in patients with a clinical diagnosis of either hereditary or acquired thrombotic thrombocytopenic purpura (TTP). Normal to moderately reduced DLHYPN64 activity results do not exclude a diagnosis of TTP. Conditions that could have VSOZTY91 activity greater than 10% include hemolytic uremic syndrome (HUS), atypical hemolytic uremic syndrome (aHUS), and other thrombotic microangiopathies associated with hematopoietic stem cell and solid organ transplantation, liver disease, DIC, sepsis, , or effects of certain medications (eg, clopidogrel, cyclosporine, mitomycin C, quinine). __ TESTING PERFORMED AT [facility]. ORIGINAL REPORT ON FILE IN LAB CONTAINS ADDITIONAL TEST SITE INFORMATION. Immature Platelet Fraction 27.4 % 1.0-7.9 [facility] Comment on above: Low PLT + Low IPF marroquin ggest a bone marrow production disorderLow PLT + high IPF suggests peripheral destruction(e.g.ITP, TTP, HIT, DIC, autoimmune) or bone marrow recoveryTrending of serial IPF measurements is recommended when evaluating for bone marrow responesValue above normal range indicates an increase in RBC cellular response from bone marrow. Immature Reticulocyte Fraction 13.30 % 3.00-15.90 [facility] Reticulocyte Count 2.23 % 0.5-1.5 [facility] D-Dimer Quantitative (PE/DVT) 9.79 FEU/ug/m 0.27-0.49 [facility] Comment on above: D-Dimer ELEVATED (>0 .49): Additional studies and clinicalassessments are indicated to conclude diagnosis of:Deep Vein Thrombosis (DVT) or Pulmonary Embolism (PE) Haptoglobin < 10 mg/dL 42-346 [facility] Comment on above: Performed at: [address] [id number] Director: Marco Antonio Sandhu PhD, Phone: [phone] No Panel InformationOrdered By: Dr. Aldana on 12-17-2022 Fibrinogen 147 mg/dl 203-444 [facility] Absolute lymphocyte countOrd ered By: Germaine Presley on 12-16-2022 Lymphocytes Auto (Unsp spec) [#/Vol] 1.71 10*3/uL 0.83-4.51 [facility] Assessment of wrist artery p atency prior to arterial punctureOrdered By: Dr. Pham on 12-16-2022 Arterial patency Wrist artery --pre arterial puncture Positive [facility] Base excessOrdered By: Dr. Estrella english on 12-16-2022 Base excess Calc (BldV) [Moles/Vol] 0 mmol/L -2-2 [facility] Base excess Calc (BldV) [Moles/Vol] 2 mmol/L -2-2 [facility] Basophil percentageOrdered B y: Dr. Pham on 12-16-2022 Lactate [Moles/Vol] 2.1 mmol/L 0.4-2.0 [facility] Comment on above: Critical Result(s) C alled at: 23:35:19 12/16/2022 by: Javier Lezama TO CHIQUITA KINGSTON RN (ICU) Results read back by same. Basophil percentage 21.1 mmol/L - [facility] Basophils/100 WBC (Bld) 99 % 95-99 [facility] Triglyceride [Mass/Vol] 117 mg/dL <199 [facility] Comment on above: The drugs N-Acetylcy steine and Metamizole may falsely depress this assay.Serum Triglycerides Reference Interval Normal <150 mg/dL Borderline high 150 - 199 mg/dL High 200 - 499 mg/dL Very High > or = 500 mg/dL Basophil percentage 26.4 mmol/L 22-26 [facility] Basophils/100 WBC (Bld) 97 % 95-99 [facility] Lactate [Moles/Vol] 8.4 mmol/L 0.4-2.0 [facility] Comment on above: Critical Result(s) C alled at: 18:01:22 12/16/2022 by: [facility] Results read back by same. Basophil percentageOrdered B y: Germaine Presley on 12-16-2022 Basophil percentage 10-25 SEEN /hpf 0-5 [facility] Basophils/100 WBC (Bld) 0.4 % 0-1 [facility] Bilirubin [Mass/Vol] 3.20 mg/dL 0.20-1.00 [facility] Comment on above: For patients on eltr ombopag therapy, use of Dimension Burnett TBIL is not recommended. Chloride [Moles/Vol] 93 mmol/L 98-107 [facility] Eosinophils/100 WBC (Bld) 4.2 % 0-5 [facility] Glucose [Mass/Vol] 154 mg/dL 74-106 [facility] Comment on above: Fasting Glucose resu lt greater than or equal to 126 mg/dL suggests DIABETES MELLITUS per A.D.A. criteria. Neutrophils (Bld) [#/Vol] 9.7 10*3/uL 2.0-7.7 [facility] Neutrophils/100 WBC (Bld) 71.7 % 47-70 [facility] Potassium [Moles/Vol] 3.7 mmol/L 3.5-5.1 [facility] Comment on above: Slight Hemolysis, Re sult may be falsely increased. Protein [Mass/Vol] 7.3 g/dL 6.4-8.2 [facility] Sodium [Moles/Vol] 138 mmol/L 136-145 [facility] WBC (Bld) [#/Vol] 13.5 10*3/uL 4.4-11.0 [facility] Bilirubin Test strip Ql (U)O rdered By: Germaine Presley on 12-16-2022 Bilirubin Ql (U) Negative Negative [facility] Blood erythrocytes count (nu mber/volume)Ordered By: Germaine Presley on 12-16-2022 RBC (Bld) [#/Vol] 5.36 10*6/uL 4.2-5.4 [facility] Blood hemoglobin measurement (mass/volume)Ordered By: Germaine Presley on 12-16-2022 Hemoglobin (Bld) [Mass/Vol] 17.8 g/dL 12.0-15.0 [facility] Blood lymphocytes/100 leukoc ytesOrdered By: Germaine Presley on 12-16-2022 Lymphocytes/100 WBC (Bld) 12.6 % 19-41 [facility] Blood manual differential co mment interpretation (narrative result)Ordered By: Germaine Presley on 12-16-2022 Manual differential comment Ifeanyi (Bld) [Interp] SCANNED [facility] Comment on above: THROMBOCYTOPENIA Blood monocytes/100 leukocyt esOrdered By: Germaine Presley on 12-16-2022 Monocytes/100 WBC (Bld) 10.4 % 0-10 [facility] Blood platelet mean volumeOr dered By: Germaine Presley on 12-16-2022 Platelet mean volume (Bld) [Entitic vol] TNP [facility] Comment on above: Test not performed CO2 (BldA) [Partial pressure ]Ordered By: Dr. Pham on 12-16-2022 CO2 (Bld) [Partial pressure] 21.6 mm[Hg] 35-45 [facility] CO2 (Bld) [Partial pressure] 38.2 mm[Hg] 35-45 [facility] Determination of erythrocyte mean corpuscular volume (MCV)Ordered By: Germaine Presley on 12-16-2022 MCV (RBC) [Entitic vol] 100.9 fL 81-99 [facility] Glucose Glucometer (BldC) [M ass/Vol]Ordered By: Dr. Han on 12-16-2022 Glucose [Mass/Vol] 147 mg/dL 74-106 [facility] Comment on above: MANAGEMENT OF PATIEN T CARE PER NURSING PROTOCOL Hematocrit Auto (Bld) [Volum e fraction]Ordered By: Germaine Presley on 12-16-2022 Hematocrit (Bld) [Volume fraction] 54.1 % 37-47 [facility] INR in Blood by Coagulation assayOrdered By: Dr. Pham on 12-16-2022 INR Coag (Bld) [Relative time] 1.1 {INR} [facility] Ketones Test strip Ql (U)Ord ered By: Germaine Presley on 12-16-2022 Ketones Ql (U) 5 mg/dl Negative [facility] Laboratory - Chemistry and C hemistry - challengeOrdered By: Dr. Pham on 12-16-2022 CK [Catalytic activity/Vol] 266 U/L 26-192 [facility] Comment on above: Moderate Hemolysis, Result may be falsely increased. CK [Catalytic activity/Vol] 193 U/L -192 [facility] Comment on above: Moderate Hemolysis, Result may be falsely increased. Laboratory - Chemistry and C hemistry - challengeOrdered By: Germaine Presley on 12-16-2022 ALP [Catalytic activity/Vol] 106 U/L 45-117 [facility] ALT [Catalytic activity/Vol] 71 U/L 13-56 [facility] CO2 [Moles/Vol] 27.0 mmol/L 21.0-32.0 [facility] Globulin (S) [Mass/Vol] 4.2 g/dL 2.2-4.2 [facility] Urea nitrogen/Creatinine [Mass ratio] 12.4 mg/mg 10-20 [facility] Laboratory - CoagulationOrde red By: Dr. Pham on 12-16-2022 aPTT Coag (Bld) [Time] 23.5 s 24.1-36.2 [facility] PT Coag (PPP) [Time] 14.1 s 11.7-14.9 [facility] Laboratory - Drug toxicology Ordered By: Germaine Presley on 12-16-2022 Amphetamines Ql (U) Negative <1000 ng/mL [facility] Benzodiazepines Ql (U) Positive < 200 ng/mL [facility] Cannabinoids Screen Ql (U) Negative < 50 ng/mL [facility] Cocaine Ql (U) Negative < 300 ng/mL [facility] Opiates Ql (U) Negative < 300 ng/mL [facility] Laboratory - Hematology and Cell countsOrdered By: Germaine Presley on 12-16-2022 Erythrocyte distribution width (RBC) [Entitic vol] 53.5 fL 35.1-43.9 [facility] Erythrocyte distribution width (RBC) [Ratio] 14.3 % 11.6-14.6 [facility] Immature granulocytes/100 WBC (Bld) 0.700 % 0.0-0.9 [facility] Comment on above: IG% - Immature Granu locytes (promyelocytes, myelocytes and metamyelocytes) > 1% indicates that a LEFT SHIFT is Present. MCH (RBC) [Entitic mass] 33.2 pg 27.0-32.0 [facility] Nucleated RBC/100 WBC (Bld) [Ratio] 0 % 0-5 [facility] MCHC Auto (RBC) [Mass/Vol]Or dered By: Germaine Presley on 12-16-2022 MCHC (RBC) [Mass/Vol] 32.9 g/dL 32-36 [facility] Mucus LM Ql (Urine sed)Order ed By: Germaine Presley on 12-16-2022 Mucus Ql (Urine sed) 0 SEEN /hpf [facility] Nitrite Test strip Ql (U)Ord ered By: Germaine Presley on 12-16-2022 Nitrite Ql (U) Negative Negative [facility] No Panel InformationOrdered By: Dr. Pham on 12-16-2022 Bedside Blood Gas PEEP 5 [facility] Bld Gas Crit Called To/Read Back By Yes [facility] Blood Gas Oxygen Percent 30 [facility] Blood Gas Respiration Rate 14 [facility] Blood Gas Sample Site R Radial [facility] Blood Gas Specimen Type ART [facility] Blood Gas Tidal Volume 450 [facility] Blood Gas Total CO2 22 mmol/L [facility] Blood Gas Vent Mode AC [facility] Oxygen Delivery Device ET Tube [facility] Parathyroid Hormone (Intact) 15.4 pg/mL 18.4-80.1 [facility] Vitamin D 25-Hydroxy 32.7 ng/mL [facility] Comment on above: Vitamin D 25(OH) Sta tus Range Deficiency <20 ng/mL (50nmol/L) Insufficiency 20 - 30 ng/mL (50 - 75 nmol/L) Sufficiency 30 - 100 ng/mL (75 - 250 nmol/L) Toxicity >100 ng/mL (>250 nmol/L) Blood Gas Liter Flow 2.0 /min [facility] Blood Gas Sample Site R Radial [facility] Blood Gas Specimen Type ART [facility] Blood Gas Total CO2 28 mmol/L [facility] No Panel InformationOrdered By: Germaine Presley on 12-16-2022 MDMA (Ecstasy) Screen Positive < 500 ng/mL [facility] Urine Barbiturates Screen Negative < 200 ng/mL [facility] Urine Drug Screen Comment [facility] Comment on above: CONFIRMATORY TESTING FOR [...] Urine Methadone Screen Negative < 300 ng/mL [facility] Thyroid Stimulating Hormone (TSH) 19.60 uIU/mL 0.358-3.74 [facility] Estimated Creatinine Clearance Calc 23.98 ml/min [facility] Estimated GFR (MDRD) Amer 36 mL/min >60 [facility] Comment on above: GFR Calc Estimated GFR (MDRD) Non-Af Amer 30 mL/min >60 [facility] Comment on above: Non- GFR Calc Ethyl Alcohol Level < 3.0 mg/dL [facility] Comment on above: The serum:whole bloo d ethanol ratio is approximately 1.14and varies slightly with hematocrit. Medical Alcohol reference interval and critical value innon-tolerant individuals; 50 - 100 Impairment 100 Intoxication 100 - 250 Severe Poisoning 250 - 400 Deep/possible fatal coma Oxygen (BldA) [Partial press ure]Ordered By: Dr. Pham on 12-16-2022 Oxygen (Bld) [Partial pressure] 91 mmHG 75-100 [facility] Oxygen (Bld) [Partial pressure] 90 mmHG 75-100 [facility] Platelets bldOrdered By: Mary Ann Presley on 12-16-2022 Platelets (Bld) [#/Vol] 31 10*3/uL 150-450 [facility] Comment on above: CRITICAL VALUE VERIF IED. CALLED TO JEFF12/16/22 1654 Peggy Kwok.RESULTS READ BACK BY SAME. Protein Test strip Ql (U)Ord ered By: Germaine Presley on 12-16-2022 Protein Ql (U) 100 mg/dl Negative [facility] Review by pathologistOrdered By: Germaine Presley on 12-16-2022 Pathologist review Ifeanyi (Unsp spec) [Interp] May foll [facility] Serum or plasma albumin cony urement (mass/volume)Ordered By: Germaine Presley on 12-16-2022 Albumin [Mass/Vol] 3.1 g/dL 3.2-5.0 [facility] Serum or plasma albumin/glob ulin mass ratioOrdered By: Germaine Presley on 12-16-2022 Albumin/Globulin [Mass ratio] 0.7 {ratio} 0.9-2.4 [facility] Serum or plasma calcium cony urement (mass/volume)Ordered By: Germaine Presley on 12-16-2022 Calcium [Mass/Vol] 14.9 mg/dL 8.5-10.1 [facility] Comment on above: Critical Result(s) C alled at: 16:53:23 12/16/2022 by: Su Silva to [facility]. Results read back by same. Serum or plasma creatinine m easurement (mass/volume)Ordered By: Germaine Presley on 12-16-2022 Creatinine [Mass/Vol] 1.78 mg/dL 0.55-1.02 [facility] Comment on above: The validity of the calculated GFR & GFRAA in patients over 70 years has not been determined. Clinical correlation is essential. Serum or plasma urea nitroge n measurement (mass/volume)Ordered By: Germaine Presley on 12-16-2022 Urea nitrogen [Mass/Vol] 22 mg/dL 7-18 [facility] Squamous epithelial cells de tection in urine sediment by light microscopyOrdered By: Germaine Presley on 12-16-2022 Epithelial cells.squamous LM Ql (Urine sed) 0-5 SEEN /hpf 5-10 [facility] Thin prep Papanicolaou smear with manual screeningOrdered By: Germaine Presley on 12-16-2022 Thin prep Papanicolaou smear with manual screening 427 U/L 15-37 [facility] Comment on above: Slight Hemolysis, Re sult may be falsely increased. Thin prep Papanicolaou smear with manual screening 18 5-15 [facility] Urine blood detectionOrdered By: Germaine Presley on 12-16-2022 RBC Ql (U) 250 /ul Negative [facility] RBC Ql (U) 0-5 SEEN /hpf 0-5 [facility] Urine clarityOrdered By: Mary Ann Presley on 12-16-2022 Clarity (U) Cloudy Clear [facility] Urine color determinationOrd ered By: Germaine Presley on 12-16-2022 Color (U) Lilly Yellow [facility] Urine glucose detectionOrder ed By: Germaine Presley on 12-16-2022 Glucose Ql (U) Normal mg/dl Normal [facility] Urine leukocyte esterase det ection by dipstickOrdered By: Germaine Presley on 12-16-2022 Leukocyte esterase Test strip Ql (U) 25 /ul Negative [facility] Urine pHOrdered By: Germaine tatum on 12-16-2022 pH (U) 6.5 [pH] 5.0 - 8.0 [facility] Urine phencyclidine (PCP) de tectionOrdered By: Germaine Presley on 12-16-2022 Phencyclidine Ql (U) Negative < 25 ng/mL [facility] Urine sediment bacteria coun t by microscopy (number/high power field)Ordered By: Germaine Presley on 12-16-2022 Bacteria LM.HPF (Urine sed) [#/Area] 4 /[HPF] None Seen [facility] Urine specific gravity measu rementOrdered By: Germaine Presley on 12-16-2022 Specific gravity (U) [Rel density] 1.015 1.002-1.030 [facility] Urobilinogen Auto test strip Ql (U)Ordered By: Germaine Presley on 03-05-2023 Urobilinogen Ql (U) 1 mg/dl Normal [facility] pH measurementOrdered By: Dr Timothy Pham on 12-16-2022 pH (Unsp spec) 7.60 [pH] 7.35-7.45 [facility] pH (Unsp spec) 7.45 [pH] 7.35-7.45 [facility] CASE MANAGEMon 09-27-2022 CASE MANAGEM Normal [facility] CASE MANAGEM Normal [facility] CNDSon 09-27-2022 CNDS Normal [facility] CONSULTon 09-27-2022 CONSULT Normal [facility] Ammonia Plas-sCncon 09-26-20 Ammonia (P) [Moles/Vol] 20 umol/L Normal 11-51 [facility] Comment on above: Order Comment: Speci men Type: BLOOD SPECIMENOrdering Facility: [facility] Address: [address] [place] [address] Performed By: #### 1 6362-6 ####[facility] LABORATORYCLIA [id number] [address] STATES OF [facility] Basic metabolic 2000 panelon 09-26-2022 Anion gap [Moles/Vol] 10 mmol/L Normal 9-18 [facility] Comment on above: Order Comment: Speci men Type: BLOOD SPECIMENOrdering Facility: [facility] Address: [address] [place] [address] Performed By: #### 2 4321-2 ####[facility] LABORATORYCLIA [id number] [place] [address] [place] Calcium [Mass/Vol] 9.1 mg/dL Normal 8.5-10.2 [facility] Comment on above: Order Comment: Speci men Type: BLOOD SPECIMENOrdering Facility: [facility] Address: [address] [place] [address] Performed By: #### 2 4321-2 ####[facility] LABORATORYCLIA [id number] [place] [address] [place] Chloride [Moles/Vol] 101 mmol/L Normal 97-105 [facility] Comment on above: Order Comment: Speci men Type: BLOOD SPECIMENOrdering Facility: [facility] Address: [address] [place] [address] Performed By: #### 2 4321-2 ####[facility] LABORATORYCLIA [id number] [address] [place] CO2 [Moles/Vol] 21 mmol/L Low 22-30 [facility] Comment on above: Order Comment: Speci men Type: BLOOD SPECIMENOrdering Facility: [facility] Address: [address] [place] [address] Performed By: #### 2 4321-2 ####[facility] LABORATORYCLIA [id number] [address] OF [facility] Creatinine [Mass/Vol] 0.44 mg/dL Low 0.58-0.96 [facility] Comment on above: Order Comment: Speci men Type: BLOOD SPECIMENOrdering Facility: [facility] Address: [address] [place] [address] Performed By: #### 2 4321-2 ####[facility] LABORATORYCLIA [id number] [address] ESTIMATED GLOMERULAR FILTRATION RATE 104 mL/min/1.73m??? Normal >=60 [facility] Comment on above: Order Comment: Speci men Type: BLOOD SPECIMENOrdering Facility: [facility] Address: [address] [place] [address] Result Comment: Mariely mated Glomerular Filtration Rate [...] actual GFR. Performed By: #### 2 4321-2 ####[facility] LABORATORYCLIA [id number] [address] [place] Glucose [Mass/Vol] 98 mg/dL Normal 74-99 [facility] Comment on above: Order Comment: Speci men Type: BLOOD SPECIMENOrdering Facility: [facility] Address: [address] [address] Result Comment: The [place] [employer] (ADA) provides guidance for cutoff [...] Standards of Medical Care in Diabetes 2016, [place] [employer]. Diabetes Care. 2016.39(Suppl 1). Performed By: #### 2 4321-2 ####[facility] LABORATORYCLIA [id number] [place] [address] [place] Potassium [Moles/Vol] Normal [facility] Comment on above: Order Comment: [place] [facility] Type: BLOOD SPECIMENOrdering Facility: [facility] Address: [address] [address] Result Comment: Unab le to assay due to interference from hemolysis. Suggest reorder as clinically indicated. Performed By: #### 2 4321-2 ####[facility] LABORATORYCLIA [id number] [place] [address] [place] Sodium [Moles/Vol] 132 mmol/L Low 136-144 [facility] Comment on above: Order Comment: [place] [facility] Type: BLOOD SPECIMENOrdering Facility: [facility] Address: [address] [address] Performed By: #### 2 4321-2 ####[facility] LABORATORYCLIA [id number] [place] [address] [place] Urea nitrogen [Mass/Vol] 12 mg/dL Normal 7-21 [facility] Comment on above: Order Comment: [place] [facility] Type: BLOOD SPECIMENOrdering Facility: [facility] Address: [address] [address] Performed By: #### 2 4321-2 ####[facility] LABORATORYCLIA [id number] [address] CASE MANAGEMon 09-26-2022 CASE MANAGEM Normal [facility] CASE MANAGEM Normal [facility] CBC panel Auto (Bld)on 09-26 Erythrocyte distribution width (RBC) [Ratio] 15.2 % High 11.5-15.0 [facility] Comment on above: Order Comment: Speci men Type: BLOOD SPECIMENOrdering Facility: [facility] Address: [address] [place] [address] Performed By: #### 5 8410-2 ####[facility] LABORATORYCLIA [id number] [address] STATES [facility] Hematocrit (Bld) [Volume fraction] 40.2 % Normal 36.0-46.0 [facility] Comment on above: Order Comment: Speci men Type: BLOOD SPECIMENOrdering Facility: [facility] Address: [address] [place] [address] Performed By: #### 5 8410-2 ####[facility] LABORATORYCLIA [id number] [address] [place] Hemoglobin (Bld) [Mass/Vol] 13.6 g/dL Normal 11.5-15.5 [facility] Comment on above: Order Comment: Speci men Type: BLOOD SPECIMENOrdering Facility: [facility] Address: [address] [place] [address] Performed By: #### 5 8410-2 ####[facility] LABORATORYCLIA [id number] [address] [place] MCH (RBC) [Entitic mass] 34.6 pg High 26.0-34.0 [facility] Comment on above: Order Comment: Speci men Type: BLOOD SPECIMENOrdering Facility: [facility] Address: [address] [place] [address] Performed By: #### 5 8410-2 ####[facility] LABORATORYCLIA [id number] [address] [place] [facility] MCHC (RBC) [Mass/Vol] 33.8 g/dL Normal 30.5-36.0 [facility] Comment on above: Order Comment: Speci men Type: BLOOD SPECIMENOrdering Facility: [facility] Address: [address] [place] [address] Performed By: #### 5 8410-2 ####[facility] LABORATORYCLIA [id number] [address] [place] [facility] MCV (RBC) [Entitic vol] 102.3 fL High 80.0-100.0 [facility] Comment on above: Order Comment: Speci men Type: BLOOD SPECIMENOrdering Facility: [facility] Address: [address] [place] [address] Performed By: #### 5 8410-2 ####[facility] LABORATORYCLIA [id number] [address] Nucleated RBC (Bld) [#/Vol] 10*3/uL Normal <0.01 [facility] Comment on above: Order Comment: Speci men Type: BLOOD SPECIMENOrdering Facility: [facility] Address: [address] [place] [address] Performed By: #### 5 8410-2 ####[facility] LABORATORYCLIA [id number] [address] [place] Platelet mean volume (Bld) [Entitic vol] 10.3 fL Normal 9.0-12.7 [facility] Comment on above: Order Comment: Speci men Type: BLOOD SPECIMENOrdering Facility: [facility] Address: [address] [place] [address] Performed By: #### 5 8410-2 ####[facility] LABORATORYCLIA [id number] [address] [place] Platelets (Bld) [#/Vol] 264 10*3/uL Normal 150-400 [facility] Comment on above: Order Comment: Speci men Type: BLOOD SPECIMENOrdering Facility: [facility] Address: [address] [address] Performed By: #### 5 8410-2 ####[facility] LABORATORYCLIA [id number] [address] OF [facility] RBC (Bld) [#/Vol] 3.93 10*6/uL Normal 3.90-5.20 [facility] Comment on above: Order Comment: Speci men Type: BLOOD SPECIMENOrdering Facility: [facility] Address: [address] [address] Performed By: #### 5 8410-2 ####[facility] LABORATORYCLIA [id number] [address] OF [facility] WBC (Bld) [#/Vol] 7.82 10*3/uL Normal 3.70-11.00 [facility] Comment on above: Order Comment: Speci men Type: BLOOD SPECIMENOrdering Facility: [facility] Address: [address] [place] [address] Performed By: #### 5 8410-2 ####[facility] LABORATORYCLIA [id number] [address] [place] Basic metabolic 2000 panelon 09-25-2022 Anion gap [Moles/Vol] 11 mmol/L Normal 9-18 [facility] Comment on above: Order Comment: Speci men Type: BLOOD SPECIMENOrdering Facility: [facility] Address: [address] [place] [address] Performed By: #### 2 4321-2 ####[facility] LABORATORYCLIA [id number] [address] [place] [facility] Calcium [Mass/Vol] 8.4 mg/dL Low 8.5-10.2 [facility] Comment on above: Order Comment: Speci men Type: BLOOD SPECIMENOrdering Facility: [facility] Address: [address] [place] [address] Performed By: #### 2 4321-2 ####[facility] LABORATORYCLIA [id number] [address] Chloride [Moles/Vol] 107 mmol/L High 97-105 [facility] Comment on above: Order Comment: Speci men Type: BLOOD SPECIMENOrdering Facility: [facility] Address: [address] [place] [address] Performed By: #### 2 4321-2 ####[facility] LABORATORYCLIA [id number] [address] OF [facility] CO2 [Moles/Vol] 21 mmol/L Low 22-30 [facility] Comment on above: Order Comment: Speci men Type: BLOOD SPECIMENOrdering Facility: [facility] Address: [address] [place] [address] Performed By: #### 2 4321-2 ####[facility] SERVICESCLIA [id number] [address] Creatinine [Mass/Vol] 0.46 mg/dL Low 0.58-0.96 [facility] Comment on above: Order Comment: Speci men Type: BLOOD SPECIMENOrdering Facility: [facility] Address: [address] [place] [address] Performed By: #### 2 4321-2 ####[facility] LABORATORYCLIA [id number] [address] ESTIMATED GLOMERULAR FILTRATION RATE 102 mL/min/1.73m??? Normal >=60 [facility] Comment on above: Order Comment: Speci men Type: BLOOD SPECIMENOrdering Facility: [facility] Address: [address] [place] [address] Result Comment: Mariely mated Glomerular Filtration Rate [...] actual GFR. Performed By: #### 2 4321-2 ####[facility] LABORATORYCLIA [id number] [place] [address] [place] Glucose [Mass/Vol] 92 mg/dL Normal 74-99 [facility] Comment on above: Order Comment: Speci men Type: BLOOD SPECIMENOrdering Facility: [facility] Address: [address] [address] Result Comment: The [place] [employer] (ADA) provides guidance for cutoff [...] Standards of Medical Care in Diabetes 2016, [place] [employer]. Diabetes Care. 2016.39(Suppl 1). Performed By: #### 2 4321-2 ####[facility] LABORATORYCLIA [id number] [place] [address] [place] Potassium [Moles/Vol] 3.9 mmol/L Normal 3.7-5.1 [facility] Comment on above: Order Comment: Cary men Type: BLOOD SPECIMENOrdering Facility: [facility] Address: [address] [address] Performed By: #### 2 4321-2 ####[facility] LABORATORYCLIA [id number] [place] [address] [place] Sodium [Moles/Vol] 139 mmol/L Normal 136-144 [facility] Comment on above: Order Comment: Speci men Type: BLOOD SPECIMENOrdering Facility: [facility] Address: [address] [place] [address] Performed By: #### 2 4321-2 ####[facility] LABORATORYCLIA [id number] [place] [address] [place] Urea nitrogen [Mass/Vol] 9 mg/dL Normal 7-21 [facility] Comment on above: Order Comment: Speci men Type: BLOOD SPECIMENOrdering Facility: [facility] Address: [address] [place] [address] Performed By: #### 2 4321-2 ####[facility] LABORATORYCLIA [id number] [address] CASE MANAGEMon 09-25-2022 CASE MANAGEM Normal [facility] CBC panel Auto (Bld)on 09-25 Erythrocyte distribution width (RBC) [Ratio] 15.1 % High 11.5-15.0 [facility] Comment on above: Order Comment: Speci men Type: BLOOD SPECIMENOrdering Facility: [facility] Address: [address] [place] [address] Performed By: #### 5 8410-2 ####[facility] LABORATORYCLIA [id number] [address] Hematocrit (Bld) [Volume fraction] 37.6 % Normal 36.0-46.0 [facility] Comment on above: Order Comment: Speci men Type: BLOOD SPECIMENOrdering Facility: [facility] Address: [address] [place] [address] Performed By: #### 5 8410-2 ####[facility] LABORATORYCLIA [id number] [address] STATES [facility] Hemoglobin (Bld) [Mass/Vol] 12.7 g/dL Normal 11.5-15.5 [facility] Comment on above: Order Comment: Speci men Type: BLOOD SPECIMENOrdering Facility: [facility] Address: [address] [place] [address] Performed By: #### 5 8410-2 ####[facility] LABORATORYCLIA [id number] [address] STATES [facility] MCH (RBC) [Entitic mass] 34.3 pg High 26.0-34.0 [facility] Comment on above: Order Comment: Speci men Type: BLOOD SPECIMENOrdering Facility: [facility] Address: [address] [place] [address] Performed By: #### 5 8410-2 ####[facility] LABORATORYCLIA [id number] [address] [place] MCHC (RBC) [Mass/Vol] 33.8 g/dL Normal 30.5-36.0 [facility] Comment on above: Order Comment: Speci men Type: BLOOD SPECIMENOrdering Facility: [facility] Address: [address] [place] [address] Performed By: #### 5 8410-2 ####[facility] LABORATORYCLIA [id number] [address] [place] MCV (RBC) [Entitic vol] 101.6 fL High 80.0-100.0 [facility] Comment on above: Order Comment: Speci men Type: BLOOD SPECIMENOrdering Facility: [facility] Address: [address] [place] [address] Performed By: #### 5 8410-2 ####[facility] LABORATORYCLIA [id number] [address] [place] [facility] Nucleated RBC (Bld) [#/Vol] 10*3/uL Normal <0.01 [facility] Comment on above: Order Comment: Speci men Type: BLOOD SPECIMENOrdering Facility: [facility] Address: [address] [place] [address] Performed By: #### 5 8410-2 ####[facility] LABORATORYCLIA [id number] [address] [place] Platelet mean volume (Bld) [Entitic vol] 10.1 fL Normal 9.0-12.7 [facility] Comment on above: Order Comment: Speci men Type: BLOOD SPECIMENOrdering Facility: [facility] Address: [address] [place] [address] Performed By: #### 5 8410-2 ####[facility] LABORATORYCLIA [id number] [address] [place] Platelets (Bld) [#/Vol] 284 10*3/uL Normal 150-400 [facility] Comment on above: Order Comment: Speci men Type: BLOOD SPECIMENOrdering Facility: [facility] Address: [address] [place] [address] Performed By: #### 5 8410-2 ####[facility] LABORATORYCLIA [id number] [address] OF [facility] RBC (Bld) [#/Vol] 3.70 10*6/uL Low 3.90-5.20 [facility] Comment on above: Order Comment: Speci men Type: BLOOD SPECIMENOrdering Facility: [facility] Address: [address] [place] [address] Performed By: #### 5 8410-2 ####[facility] LABORATORYCLIA [id number] [address] OF [facility] WBC (Bld) [#/Vol] 6.62 10*3/uL Normal 3.70-11.00 [facility] Comment on above: Order Comment: Speci men Type: BLOOD SPECIMENOrdering Facility: [facility] Address: [address] [place] [address] Performed By: #### 5 8410-2 ####[facility] LABORATORYCLIA [id number] [address] OF [facility] THERAPY NTon 09-25-2022 THERAPY NT Normal [facility] THERAPY NT Normal [facility] THERAPY NT Normal [facility] Basic metabolic 2000 panelon 09-24-2022 Anion gap [Moles/Vol] 10 mmol/L Normal 9-18 [facility] Comment on above: Order Comment: Speci men Type: BLOOD SPECIMENOrdering Facility: [facility] Address: [address] [place] [address] Performed By: #### 2 4321-2 ####[facility] LABORATORYCLIA [id number] [address] Calcium [Mass/Vol] 9.1 mg/dL Normal 8.5-10.2 [facility] Comment on above: Order Comment: Speci men Type: BLOOD SPECIMENOrdering Facility: [facility] Address: [address] [place] [address] Performed By: #### 2 4321-2 ####[facility] LABORATORYCLIA [id number] [address] [place] Chloride [Moles/Vol] 100 mmol/L Normal 97-105 [facility] Comment on above: Order Comment: Speci men Type: BLOOD SPECIMENOrdering Facility: [facility] Address: [address] [place] [address] Performed By: #### 2 4321-2 ####[facility] LABORATORYCLIA [id number] [address] [place] CO2 [Moles/Vol] 23 mmol/L Normal 22-30 [facility] Comment on above: Order Comment: Speci men Type: BLOOD SPECIMENOrdering Facility: [facility] Address: [address] [place] [address] Performed By: #### 2 4321-2 ####[facility] LABORATORYCLIA [id number] [address] [facility] Creatinine [Mass/Vol] 0.56 mg/dL Low 0.58-0.96 [facility] Comment on above: Order Comment: Speci men Type: BLOOD SPECIMENOrdering Facility: [facility] Address: [address] [place] [address] Performed By: #### 2 4321-2 ####[facility] LABORATORYCLIA [id number] [address] ESTIMATED GLOMERULAR FILTRATION RATE 98 mL/min/1.73m??? Normal >=60 [facility] Comment on above: Order Comment: Speci men Type: BLOOD SPECIMENOrdering Facility: [facility] Address: [address] [place] [address] Result Comment: Mariely mated Glomerular Filtration Rate [...] actual GFR. Performed By: #### 2 4321-2 ####[facility] LABORATORYCLIA [id number] [place] [address] [place] Glucose [Mass/Vol] 90 mg/dL Normal 74-99 [facility] Comment on above: Order Comment: Speci tai Type: BLOOD SPECIMENOrdering Facility: [facility] Address: [address] [place] [address] Result Comment: The [place] [employer] (ADA) provides guidance for cutoff [...] Standards of Medical Care in Diabetes 2016, [place] [employer]. Diabetes Care. 2016.39(Suppl 1). Performed By: #### 2 4321-2 ####[facility] LABORATORYCLIA [id number] [place] [address] [place] Potassium [Moles/Vol] 3.5 mmol/L Low 3.7-5.1 [facility] Comment on above: Order Comment: Speci tai Type: BLOOD SPECIMENOrdering Facility: [facility] Address: [address] [place] [address] Performed By: #### 2 4321-2 ####[facility] LABORATORYCLIA [id number] [place] [address] [place] Sodium [Moles/Vol] 133 mmol/L Low 136-144 [facility] Comment on above: Order Comment: Rejii tai Type: BLOOD SPECIMENOrdering Facility: [facility] Address: [address] [place] [address] Performed By: #### 2 4321-2 ####[facility] LABORATORYCLIA [id number] [place] [address] [place] Urea nitrogen [Mass/Vol] 13 mg/dL Normal 7-21 [facility] Comment on above: Order Comment: Speci men Type: BLOOD SPECIMENOrdering Facility: [facility] Address: [address] [place] [address] Performed By: #### 2 4321-2 ####[facility] LABORATORYCLIA [id number] [address] [place] CASE MANAGEMon 09-24-2022 CASE MANAGEM Normal [facility] CASE MANAGEM Normal [facility] CBC panel Auto (Bld)on 09-24 Erythrocyte distribution width (RBC) [Ratio] 15.2 % High 11.5-15.0 [facility] Comment on above: Order Comment: Speci men Type: BLOOD SPECIMENOrdering Facility: [facility] Address: [address] [place] [address] Performed By: #### 5 8410-2 ####[facility] LABORATORYCLIA [id number] [address] [place] Hematocrit (Bld) [Volume fraction] 40.8 % Normal 36.0-46.0 [facility] Comment on above: Order Comment: Speci men Type: BLOOD SPECIMENOrdering Facility: [facility] Address: [address] [place] [address] Performed By: #### 5 8410-2 ####[facility] LABORATORYCLIA [id number] [place] [address] [place] Hemoglobin (Bld) [Mass/Vol] 13.8 g/dL Normal 11.5-15.5 [facility] Comment on above: Order Comment: Speci men Type: BLOOD SPECIMENOrdering Facility: [facility] Address: [address] [place] [address] Performed By: #### 5 8410-2 ####[facility] LABORATORYCLIA [id number] [place] [address] [place] MCH (RBC) [Entitic mass] 34.5 pg High 26.0-34.0 [facility] Comment on above: Order Comment: Speci men Type: BLOOD SPECIMENOrdering Facility: [facility] Address: [address] [address] Performed By: #### 5 8410-2 ####[facility] LABORATORYCLIA [id number] [address] MCHC (RBC) [Mass/Vol] 33.8 g/dL Normal 30.5-36.0 [facility] Comment on above: Order Comment: Speci men Type: BLOOD SPECIMENOrdering Facility: [facility] Address: [address] [place] [address] Performed By: #### 5 8410-2 ####[facility] LABORATORYCLIA [id number] [address] [place] MCV (RBC) [Entitic vol] 102.0 fL High 80.0-100.0 [facility] Comment on above: Order Comment: Speci men Type: BLOOD SPECIMENOrdering Facility: [facility] Address: [address] [place] [address] Performed By: #### 5 8410-2 ####[facility] LABORATORYCLIA [id number] [address] Nucleated RBC (Bld) [#/Vol] 10*3/uL Normal <0.01 [facility] Comment on above: Order Comment: Speci men Type: BLOOD SPECIMENOrdering Facility: [facility] Address: [address] [place] [address] Performed By: #### 5 8410-2 ####[facility] LABORATORYCLIA [id number] [address] STATES [facility] Platelet mean volume (Bld) [Entitic vol] 10.0 fL Normal 9.0-12.7 [facility] Comment on above: Order Comment: Speci men Type: BLOOD SPECIMENOrdering Facility: [facility] Address: [address] [place] [address] Performed By: #### 5 8410-2 ####[facility] LABORATORYCLIA [id number] [place] [address] [place] Platelets (Bld) [#/Vol] 262 10*3/uL Normal 150-400 [facility] Comment on above: Order Comment: Speci men Type: BLOOD SPECIMENOrdering Facility: [facility] Address: [address] [place] [address] Performed By: #### 5 8410-2 ####[facility] LABORATORYCLIA [id number] [place] [address] [place] RBC (Bld) [#/Vol] 4.00 10*6/uL Normal 3.90-5.20 [facility] Comment on above: Order Comment: Speci men Type: BLOOD SPECIMENOrdering Facility: [facility] Address: [address] [place] [address] Performed By: #### 5 8410-2 ####[facility] LABORATORYCLIA [id number] [address] [place] WBC (Bld) [#/Vol] 6.62 10*3/uL Normal 3.70-11.00 [facility] Comment on above: Order Comment: Speci men Type: BLOOD SPECIMENOrdering Facility: [facility] Address: [address] [place] [address] Performed By: #### 5 8410-2 ####[facility] LABORATORYCLIA [id number] [address] [place] CONSULTon 09-24-2022 CONSULT Normal [facility] NURSING PROGon 09-24-2022 NURSING PROG Normal [facility] NURSING PROG Normal [facility] NUTRITIONon 09-24-2022 NUTRITION Normal [facility] NURSING PROGon 09-22-2022 NURSING PROG Normal [facility] Basic metabolic 2000 panelon 09-21-2022 Anion gap [Moles/Vol] 9 mmol/L Normal 9-18 [facility] Comment on above: Order Comment: Speci men Type: BLOOD SPECIMENOrdering Facility: [facility] Address: [address] [place] [address] Performed By: #### 2 4321-2 ####[facility] LABORATORYCLIA [id number] [address] [place] Calcium [Mass/Vol] 9.5 mg/dL Normal 8.5-10.2 [facility] Comment on above: Order Comment: Speci men Type: BLOOD SPECIMENOrdering Facility: [facility] Address: [address] [place] [address] Performed By: #### 2 4321-2 ####[facility] LABORATORYCLIA [id number] [address] [place] Chloride [Moles/Vol] 100 mmol/L Normal 97-105 [facility] Comment on above: Order Comment: Speci men Type: BLOOD SPECIMENOrdering Facility: [facility] Address: [address] [place] [address] Performed By: #### 2 4321-2 ####[facility] LABORATORYCLIA [id number] [address] CO2 [Moles/Vol] 25 mmol/L Normal 22-30 [facility] Comment on above: Order Comment: Speci men Type: BLOOD SPECIMENOrdering Facility: [facility] Address: [address] [place] [address] Performed By: #### 2 4321-2 ####[facility] LABORATORYCLIA [id number] [address] [place] Creatinine [Mass/Vol] 0.56 mg/dL Low 0.58-0.96 [facility] Comment on above: Order Comment: Speci men Type: BLOOD SPECIMENOrdering Facility: [facility] Address: [address] [place] [address] Performed By: #### 2 4321-2 ####[facility] LABORATORYCLIA [id number] [address] ESTIMATED GLOMERULAR FILTRATION RATE 98 mL/min/1.73m??? Normal >=60 [facility] Comment on above: Order Comment: Speci men Type: BLOOD SPECIMENOrdering Facility: [facility] Address: [address] [phone] Result Comment: Mariely mated Glomerular Filtration Rate [...] actual GFR. Performed By: #### 2 4321-2 ####[facility] LABORATORYCLIA [id number] [place] [address] [place] Glucose [Mass/Vol] 123 mg/dL High 74-99 [facility] Comment on above: Order Comment: Cary lujan Type: BLOOD SPECIMENOrdering Facility: [facility] Address: [address] [place] [address] Result Comment: The [place] [employer] (ADA) provides guidance for cutoff [...] Standards of Medical Care in Diabetes 2016, [place] [employer]. Diabetes Care. 2016.39(Suppl 1). Performed By: #### 2 4321-2 ####[facility] LABORATORYCLIA [id number] [place] [address] [place] Potassium [Moles/Vol] 4.4 mmol/L Normal 3.7-5.1 [facility] Comment on above: Order Comment: Cary lujan Type: BLOOD SPECIMENOrdering Facility: [facility] Address: [address] [place] [address] Performed By: #### 2 4321-2 ####[facility] LABORATORYCLIA [id number] [address] [place] Sodium [Moles/Vol] 134 mmol/L Low 136-144 [facility] Comment on above: Order Comment: Speci men Type: BLOOD SPECIMENOrdering Facility: [facility] Address: [address] [place] [address] Performed By: #### 2 4321-2 ####[facility] LABORATORYCLIA [id number] [place] [address] [place] Urea nitrogen [Mass/Vol] 7 mg/dL Normal 7-21 [facility] Comment on above: Order Comment: Speci men Type: BLOOD SPECIMENOrdering Facility: [facility] Address: [address] [place] [address] Performed By: #### 2 4321-2 ####[facility] LABORATORYCLIA [id number] [address] [place] CASE MANAGEMon 09-21-2022 CASE MANAGEM Normal [facility] CBC panel Auto (Bld)on 09-21 Erythrocyte distribution width (RBC) [Ratio] 15.3 % High 11.5-15.0 [facility] Comment on above: Order Comment: Speci men Type: BLOOD SPECIMENOrdering Facility: [facility] Address: [address] [place] [address] Performed By: #### 5 8410-2 ####[facility] LABORATORYCLIA [id number] [address] [place] Hematocrit (Bld) [Volume fraction] 42.5 % Normal 36.0-46.0 [facility] Comment on above: Order Comment: Speci men Type: BLOOD SPECIMENOrdering Facility: [facility] Address: [address] [place] [address] Performed By: #### 5 8410-2 ####[facility] LABORATORYCLIA [id number] [address] [place] Hemoglobin (Bld) [Mass/Vol] 14.5 g/dL Normal 11.5-15.5 [facility] Comment on above: Order Comment: Speci men Type: BLOOD SPECIMENOrdering Facility: [facility] Address: [address] [address] Performed By: #### 5 8410-2 ####[facility] LABORATORYCLIA [id number] [address] MCH (RBC) [Entitic mass] 34.4 pg High 26.0-34.0 [facility] Comment on above: Order Comment: Speci men Type: BLOOD SPECIMENOrdering Facility: [facility] Address: [address] [place] [address] Performed By: #### 5 8410-2 ####[facility] LABORATORYCLIA [id number] [address] MCHC (RBC) [Mass/Vol] 34.1 g/dL Normal 30.5-36.0 [facility] Comment on above: Order Comment: Speci men Type: BLOOD SPECIMENOrdering Facility: [facility] Address: [address] [place] [address] Performed By: #### 5 8410-2 ####[facility] LABORATORYCLIA [id number] [address] MCV (RBC) [Entitic vol] 101.0 fL High 80.0-100.0 [facility] Comment on above: Order Comment: Speci men Type: BLOOD SPECIMENOrdering Facility: [facility] Address: [address] [place] [address] Performed By: #### 5 8410-2 ####[facility] LABORATORYCLIA [id number] [address] Nucleated RBC (Bld) [#/Vol] 10*3/uL Normal <0.01 [facility] Comment on above: Order Comment: Speci men Type: BLOOD SPECIMENOrdering Facility: [facility] Address: [address] [place] [address] Performed By: #### 5 8410-2 ####[facility] LABORATORYCLIA [id number] [place] [address] [place] Platelet mean volume (Bld) [Entitic vol] 11.0 fL Normal 9.0-12.7 [facility] Comment on above: Order Comment: Speci men Type: BLOOD SPECIMENOrdering Facility: [facility] Address: [address] [place] [address] Performed By: #### 5 8410-2 ####[facility] LABORATORYCLIA [id number] [address] [place] Platelets (Bld) [#/Vol] Normal [facility] Comment on above: Order Comment: Speci men Type: BLOOD SPECIMENOrdering Facility: [facility] Address: [address] [place] [address] Result Comment: Plat elets Clumped Estimate Normal. Performed By: #### 5 8410-2 ####[facility] LABORATORYCLIA [id number] [address] [place] RBC (Bld) [#/Vol] 4.21 10*6/uL Normal 3.90-5.20 [facility] Comment on above: Order Comment: Speci men Type: BLOOD SPECIMENOrdering Facility: [facility] Address: [address] [place] [address] Performed By: #### 5 8410-2 ####[facility] LABORATORYCLIA [id number] [address] [place] WBC (Bld) [#/Vol] 5.39 10*3/uL Normal 3.70-11.00 [facility] Comment on above: Order Comment: Speci men Type: BLOOD SPECIMENOrdering Facility: [facility] Address: [address] [place] [address] Performed By: #### 5 8410-2 ####[facility] LABORATORYCLIA [id number] [place] [address] [place] Basic metabolic 2000 panelon 09-20-2022 Anion gap [Moles/Vol] 8 mmol/L Low 9-18 [facility] Comment on above: Order Comment: Speci men Type: BLOOD SPECIMENOrdering Facility: [facility] Address: [address] [address] Performed By: #### 2 4321-2 ####[facility] LABORATORYCLIA [id number] [address] [place] Calcium [Mass/Vol] 8.5 mg/dL Normal 8.5-10.2 [facility] Comment on above: Order Comment: Speci men Type: BLOOD SPECIMENOrdering Facility: [facility] Address: [address] [place] [address] Performed By: #### 2 4321-2 ####[facility] LABORATORYCLIA [id number] [place] [address] [place] Chloride [Moles/Vol] 106 mmol/L High 97-105 [facility] Comment on above: Order Comment: Speci men Type: BLOOD SPECIMENOrdering Facility: [facility] Address: [address] [place] [address] Performed By: #### 2 4321-2 ####[facility] LABORATORYCLIA [id number] [address] [place] CO2 [Moles/Vol] 21 mmol/L Low 22-30 [facility] Comment on above: Order Comment: Speci men Type: BLOOD SPECIMENOrdering Facility: [facility] Address: [address] [place] [address] Performed By: #### 2 4321-2 ####[facility] LABORATORYCLIA [id number] [address] [place] Creatinine [Mass/Vol] 0.44 mg/dL Low 0.58-0.96 [facility] Comment on above: Order Comment: Speci men Type: BLOOD SPECIMENOrdering Facility: [facility] Address: [address] [place] [address] Performed By: #### 2 4321-2 ####[facility] LABORATORYCLIA [id number] [address] [place] ESTIMATED GLOMERULAR FILTRATION RATE 104 mL/min/1.73m??? Normal >=60 [facility] Comment on above: Order Comment: Speci men Type: BLOOD SPECIMENOrdering Facility: [facility] Address: [address] [address] Result Comment: Mariely mated Glomerular Filtration Rate [...] actual GFR. Performed By: #### 2 4321-2 ####[facility] LABORATORYCLIA [id number] [place] [address] [place] Glucose [Mass/Vol] 90 mg/dL Normal 74-99 [facility] Comment on above: Order Comment: Cary lujan Type: BLOOD SPECIMENOrdering Facility: [facility] Address: [address] [place] [address] Result Comment: The [place] [employer] (ADA) provides guidance for cutoff [...] Standards of Medical Care in Diabetes 2016, [place] [employer]. Diabetes Care. 2016.39(Suppl 1). Performed By: #### 2 4321-2 ####[facility] LABORATORYCLIA [id number] [place] [address] [place] Potassium [Moles/Vol] Normal [facility] Comment on above: Order Comment: Cary lujan Type: BLOOD SPECIMENOrdering Facility: [facility] Address: [address] [address] Result Comment: Unab le to assay due to interference from hemolysis. Suggest reorder as clinically indicated. Performed By: #### 2 4321-2 ####[facility] LABORATORYCLIA [id number] [address] [place] Sodium [Moles/Vol] 135 mmol/L Low 136-144 [facility] Comment on above: Order Comment: Speci men Type: BLOOD SPECIMENOrdering Facility: [facility] Address: [address] [place] [address] Performed By: #### 2 4321-2 ####[facility] LABORATORYCLIA [id number] [address] [place] Urea nitrogen [Mass/Vol] 6 mg/dL Low 7-21 [facility] Comment on above: Order Comment: Speci men Type: BLOOD SPECIMENOrdering Facility: [facility] Address: [address] [place] [address] Performed By: #### 2 4321-2 ####[facility] LABORATORYCLIA [id number] [address] [place] CBC panel Auto (Bld)on 09-20 Erythrocyte distribution width (RBC) [Ratio] 15.1 % High 11.5-15.0 [facility] Comment on above: Order Comment: Speci men Type: BLOOD SPECIMENOrdering Facility: [facility] Address: [address] [place] [address] Performed By: #### 5 8410-2 ####[facility] LABORATORYCLIA [id number] [address] [place] Hematocrit (Bld) [Volume fraction] 37.9 % Normal 36.0-46.0 [facility] Comment on above: Order Comment: Speci men Type: BLOOD SPECIMENOrdering Facility: [facility] Address: [address] [place] [address] Performed By: #### 5 8410-2 ####[facility] LABORATORYCLIA [id number] [address] [place] Hemoglobin (Bld) [Mass/Vol] 13.1 g/dL Normal 11.5-15.5 [facility] Comment on above: Order Comment: Speci men Type: BLOOD SPECIMENOrdering Facility: [facility] Address: [address] [place] [address] Performed By: #### 5 8410-2 ####[facility] LABORATORYCLIA [id number] [address] MCH (RBC) [Entitic mass] 34.1 pg High 26.0-34.0 [facility] Comment on above: Order Comment: Speci men Type: BLOOD SPECIMENOrdering Facility: [facility] Address: [address] [place] [address] Performed By: #### 5 8410-2 ####[facility] LABORATORYCLIA [id number] [address] MCHC (RBC) [Mass/Vol] 34.6 g/dL Normal 30.5-36.0 [facility] Comment on above: Order Comment: Speci men Type: BLOOD SPECIMENOrdering Facility: [facility] Address: [address] [place] [address] Performed By: #### 5 8410-2 ####[facility] LABORATORYCLIA [id number] [address] MCV (RBC) [Entitic vol] 98.7 fL Normal 80.0-100.0 [facility] Comment on above: Order Comment: Speci men Type: BLOOD SPECIMENOrdering Facility: [facility] Address: [address] [place] [address] Performed By: #### 5 8410-2 ####[facility] LABORATORYCLIA [id number] [address] Nucleated RBC (Bld) [#/Vol] 10*3/uL Normal <0.01 [facility] Comment on above: Order Comment: Speci men Type: BLOOD SPECIMENOrdering Facility: [facility] Address: [address] [place] [address] Performed By: #### 5 8410-2 ####[facility] LABORATORYCLIA [id number] [address] Platelet mean volume (Bld) [Entitic vol] 11.1 fL Normal 9.0-12.7 [facility] Comment on above: Order Comment: Speci men Type: BLOOD SPECIMENOrdering Facility: [facility] Address: [address] [place] [address] Performed By: #### 5 8410-2 ####[facility] LABORATORYCLIA [id number] [address] [place] Platelets (Bld) [#/Vol] 164 10*3/uL Normal 150-400 [facility] Comment on above: Order Comment: Speci men Type: BLOOD SPECIMENOrdering Facility: [facility] Address: [address] [place] [address] Performed By: #### 5 8410-2 ####[facility] LABORATORYCLIA [id number] [address] [place] [facility] RBC (Bld) [#/Vol] 3.84 10*6/uL Low 3.90-5.20 [facility] Comment on above: Order Comment: Speci men Type: BLOOD SPECIMENOrdering Facility: [facility] Address: [address] [place] [address] Performed By: #### 5 8410-2 ####[facility] LABORATORYCLIA [id number] [address] [place] WBC (Bld) [#/Vol] 5.67 10*3/uL Normal 3.70-11.00 [facility] Comment on above: Order Comment: Speci men Type: BLOOD SPECIMENOrdering Facility: [facility] Address: [address] [place] [address] Performed By: #### 5 8410-2 ####[facility] LABORATORYCLIA [id number] [address] OF [facility] CTA HEAD W IVCONon 2 CTA HEAD W IVCON Normal [facility] CTA NECK W IVCONon 2 CTA NECK W IVCON Normal [facility] THERAPY NTon 09-20-2022 THERAPY NT Normal [facility] THERAPY NT Normal [facility] ALLIED HEALTHon 09-19-2022 ALLIED HEALTH Normal [facility] Basic metabolic 2000 panelon 09-19-2022 Anion gap [Moles/Vol] 10 mmol/L Normal 9-18 [facility] Comment on above: Order Comment: Speci men Type: BLOOD SPECIMENOrdering Facility: [facility] Address: [address] [place] [address] Performed By: #### 2 4321-2 ####[facility] LABORATORYCLIA [id number] [place] [address] [place] Calcium [Mass/Vol] 7.3 mg/dL Low 8.5-10.2 [facility] Comment on above: Order Comment: Speci men Type: BLOOD SPECIMENOrdering Facility: [facility] Address: [address] [place] [address] Performed By: #### 2 4321-2 ####[facility] LABORATORYCLIA [id number] [place] [address] [place] Chloride [Moles/Vol] 106 mmol/L High 97-105 [facility] Comment on above: Order Comment: Speci men Type: BLOOD SPECIMENOrdering Facility: [facility] Address: [address] [place] [address] Performed By: #### 2 4321-2 ####[facility] LABORATORYCLIA [id number] [place] [address] [place] CO2 [Moles/Vol] 19 mmol/L Low 22-30 [facility] Comment on above: Order Comment: Speci men Type: BLOOD SPECIMENOrdering Facility: [facility] Address: [address] [place] [address] Performed By: #### 2 4321-2 ####[facility]ORATORYCLIA [id number] [place] [address] [place] Creatinine [Mass/Vol] 0.39 mg/dL Low 0.58-0.96 [facility] Comment on above: Order Comment: Speci men Type: BLOOD SPECIMENOrdering Facility: [facility] Address: [address] [address] Performed By: #### 2 4321-2 ####[facility] [id number] [address] ESTIMATED GLOMERULAR FILTRATION RATE 107 mL/min/1.73m??? Normal >=60 [facility] Comment on above: Order Comment: Cary lujan Type: BLOOD SPECIMENOrdering Facility: [facility] Address: [address] [address] Result Comment: Mariely mated Glomerular Filtration Rate [...] actual GFR. Performed By: #### 2 4321-2 ####[facility]ITALIA [id number] [address] [place] Glucose [Mass/Vol] 123 mg/dL High 74-99 [facility] Comment on above: Order Comment: Cary lujan Type: BLOOD SPECIMENOrdering Facility: [facility] Address: [address] [address] Result Comment: The [place] [employer] (ADA) provides guidance for cutoff [...] Standards of Medical Care in Diabetes 2016, [place] [employer]. Diabetes Care. 2016.39(Suppl 1). Performed By: #### 2 4321-2 ####[facility]ITALIA [id number] [address] [place] Potassium [Moles/Vol] 3.1 mmol/L Low 3.7-5.1 [facility] Comment on above: Order Comment: Speci men Type: BLOOD SPECIMENOrdering Facility: [facility] Address: [address] [address] Performed By: #### 2 4321-2 ####[facility] LABORATORYCLIA [id number] [address] [place] Sodium [Moles/Vol] 135 mmol/L Low 136-144 [facility] Comment on above: Order Comment: Speci men Type: BLOOD SPECIMENOrdering Facility: [facility] Address: [address] [place] [address] Performed By: #### 2 4321-2 ####[facility] LABORATORYCLIA [id number] [address] STATES OF [facility] Urea nitrogen [Mass/Vol] 6 mg/dL Low 7-21 [facility] Comment on above: Order Comment: Speci men Type: BLOOD SPECIMENOrdering Facility: [facility] Address: [address] [place] [address] Performed By: #### 2 4321-2 ####[facility] LABORATORYCLIA [id number] [address] [place] CBC panel Auto (Bld)on 09-19 Erythrocyte distribution width (RBC) [Ratio] 14.7 % Normal 11.5-15.0 [facility] Comment on above: Order Comment: Speci men Type: BLOOD SPECIMENOrdering Facility: [facility] Address: [address] [place] [address] Performed By: #### 5 8410-2 ####[facility] LABORATORYCLIA [id number] [address] Hematocrit (Bld) [Volume fraction] 38.6 % Normal 36.0-46.0 [facility] Comment on above: Order Comment: Speci men Type: BLOOD SPECIMENOrdering Facility: [facility] Address: [address] [place] [address] Performed By: #### 5 8410-2 ####[facility] LABORATORYCLIA [id number] [address] Hemoglobin (Bld) [Mass/Vol] 13.3 g/dL Normal 11.5-15.5 [facility] Comment on above: Order Comment: Speci men Type: BLOOD SPECIMENOrdering Facility: [facility] Address: [address] [place] [address] Performed By: #### 5 8410-2 ####[facility] LABORATORYCLIA [id number] [address] MCH (RBC) [Entitic mass] 34.1 pg High 26.0-34.0 [facility] Comment on above: Order Comment: Speci men Type: BLOOD SPECIMENOrdering Facility: [facility] Address: [address] [place] [address] Performed By: #### 5 8410-2 ####[facility] LABORATORYCLIA [id number] [address] MCHC (RBC) [Mass/Vol] 34.5 g/dL Normal 30.5-36.0 [facility] Comment on above: Order Comment: Speci men Type: BLOOD SPECIMENOrdering Facility: [facility] Address: [address] [place] [address] Performed By: #### 5 8410-2 ####[facility] LABORATORYCLIA [id number] [address] STATES [facility] MCV (RBC) [Entitic vol] 99.0 fL Normal 80.0-100.0 [facility] Comment on above: Order Comment: Speci men Type: BLOOD SPECIMENOrdering Facility: [facility] Address: [address] [place] [address] Performed By: #### 5 8410-2 ####[facility] LABORATORYCLIA [id number] [address] Nucleated RBC (Bld) [#/Vol] 10*3/uL Normal <0.01 [facility] Comment on above: Order Comment: Speci men Type: BLOOD SPECIMENOrdering Facility: [facility] Address: [address] [place] [address] Performed By: #### 5 8410-2 ####[facility] LABORATORYCLIA [id number] [place] [address] [place] Platelet mean volume (Bld) [Entitic vol] 11.1 fL Normal 9.0-12.7 [facility] Comment on above: Order Comment: Speci men Type: BLOOD SPECIMENOrdering Facility: [facility] Address: [address] [place] [address] Performed By: #### 5 8410-2 ####[facility] LABORATORYCLIA [id number] [place] [address] [place] Platelets (Bld) [#/Vol] 123 10*3/uL Low 150-400 [facility] Comment on above: Order Comment: Speci men Type: BLOOD SPECIMENOrdering Facility: [facility] Address: [address] [place] [address] Result Comment: Plat elet count confirmed by manual review of peripheral blood smear Performed By: #### 5 8410-2 ####[facility] LABORATORYCLIA [id number] [place] [address] [place] RBC (Bld) [#/Vol] 3.90 10*6/uL Normal 3.90-5.20 [facility] Comment on above: Order Comment: Speci men Type: BLOOD SPECIMENOrdering Facility: [facility] Address: [address] [place] [address] Performed By: #### 5 8410-2 ####[facility] LABORATORYCLIA [id number] [place] [address] [place] WBC (Bld) [#/Vol] 7.75 10*3/uL Normal 3.70-11.00 [facility] Comment on above: Order Comment: Speci men Type: BLOOD SPECIMENOrdering Facility: [facility] Address: [address] [place] [address] Performed By: #### 5 8410-2 ####[facility]ORATORYCLIA [id number] [place] [address] [place] CNPNon 09-19-2022 CNPN Normal [facility] CONSULTon 09-19-2022 CONSULT Normal [facility] CT BRAIN WO IVCONon 09-19-20 CT BRAIN WO IVCON Normal [facility] NURSING PROGon 09-19-2022 NURSING PROG Normal [facility] ALLIED HEALTHon 09-18-2022 ALLIED HEALTH Normal [facility] Basic metabolic 2000 panelon 09-18-2022 Anion gap [Moles/Vol] 17 mmol/L Normal 9-18 [facility] Comment on above: Order Comment: Speci men Type: BLOOD SPECIMENOrdering Facility: [facility] Address: [address] [place] [address] Performed By: #### 2 4321-2 ####[facility] LABORATORYCLIA [id number] [place] [address] [place] Calcium [Mass/Vol] 7.7 mg/dL Low 8.5-10.2 [facility] Comment on above: Order Comment: Speci men Type: BLOOD SPECIMENOrdering Facility: [facility] Address: [address] [place] [address] Performed By: #### 2 4321-2 ####[facility] LABORATORYCLIA [id number] [place] [address] [place] Chloride [Moles/Vol] 99 mmol/L Normal 97-105 [facility] Comment on above: Order Comment: Speci men Type: BLOOD SPECIMENOrdering Facility: [facility] Address: [address] [place] [address] Performed By: #### 2 4321-2 ####[facility]ORATORYCLIA [id number] [place] [address] [place] CO2 [Moles/Vol] 18 mmol/L Low 22-30 [facility] Comment on above: Order Comment: Speci men Type: BLOOD SPECIMENOrdering Facility: [facility] Address: [address] [address] Performed By: #### 2 4321-2 ####[facility] LABORATORYCLIA [id number] [address] Creatinine [Mass/Vol] 0.40 mg/dL Low 0.58-0.96 [facility] Comment on above: Order Comment: Speci men Type: BLOOD SPECIMENOrdering Facility: [facility] Address: [address] [address] Performed By: #### 2 4321-2 ####[facility] LABORATORYCLIA [id number] [address] ESTIMATED GLOMERULAR FILTRATION RATE 106 mL/min/1.73m??? Normal >=60 [facility] Comment on above: Order Comment: Cary lujan Type: BLOOD SPECIMENOrdering Facility: [facility] Address: [address] [place] [address] Result Comment: Mariely mated Glomerular Filtration Rate [...] actual GFR. Performed By: #### 2 4321-2 ####[facility] LABORATORYCLIA [id number] [address] Glucose [Mass/Vol] 82 mg/dL Normal 74-99 [facility] Comment on above: Order Comment: Speci men Type: BLOOD SPECIMENOrdering Facility: [facility] Address: [address] [address] Result Comment: The [place] [employer] (ADA) provides guidance for cutoff [...] Standards of Medical Care in Diabetes 2016, [place] [employer]. Diabetes Care. 2016.39(Suppl 1). Performed By: #### 2 4321-2 ####[facility] LABORATORYCLIA [id number] [place] [address] [place] Potassium [Moles/Vol] 3.3 mmol/L Low 3.7-5.1 [facility] Comment on above: Order Comment: Rejii tai Type: BLOOD SPECIMENOrdering Facility: [facility] Address: [address] [place] [address] Performed By: #### 2 4321-2 ####[facility] LABORATORYCLIA [id number] [address] [place] Sodium [Moles/Vol] 134 mmol/L Low 136-144 [facility] Comment on above: Order Comment: Cary lujan Type: BLOOD SPECIMENOrdering Facility: [facility] Address: [address] [place] [address] Performed By: #### 2 4321-2 ####[facility] LABORATORYCLIA [id number] [address] [place] Urea nitrogen [Mass/Vol] 4 mg/dL Low 7-21 [facility] Comment on above: Order Comment: Rejii tai Type: BLOOD SPECIMENOrdering Facility: [facility] Address: [address] [place] [address] Performed By: #### 2 4321-2 ####[facility] LABORATORYCLIA [id number] [place] [address] [place] C diff Tox gens Stl Ql CY+p tracey 09-18-2022 C. difficile toxin genes CY+probe Ql (Stl) Positive Abnormal Negative for C. difficile toxin by PCR [facility] Comment on above: Order Comment: Rejii tai Type: STOOL SPECIMENOrdering Facility: [facility] Address: [address] [place] [address] Result Comment: A po sitive PCR result [...] submission. Performed By: #### 5 4067-4, CDEIA ####[facility] LABORATORYCLIA [id number] [address] C. DIFFICILE TOXIN BY EIAon 09-18-2022 C. difficile toxin A+B IA Ql (Stl) Not detected Normal Negative for C. difficile toxin [facility] Comment on above: Order Comment: Speci men Type: STOOL SPECIMENOrdering Facility: [facility] Address: [address] [place] [address] Result Comment: Toxi n EIA is less sensitive than cell cytotoxin and PCR assays. Clinical correlation of PCR positive/toxin EIA negative results is required to distinguish C. difficle colonization from disease. Performed By: #### 5 4067-4, CDEIA ####[facility] LABORATORYCLIA [id number] [address] CASE MANAGEMon 09-18-2022 CASE MANAGEM Normal [facility] CASE MANAGEM Normal [facility] CBC panel Auto (Bld)on 09-18 Erythrocyte distribution width (RBC) [Ratio] 14.4 % Normal 11.5-15.0 [facility] Comment on above: Order Comment: Speci men Type: BLOOD SPECIMENOrdering Facility: [facility] Address: [address] [address] Performed By: #### 5 8410-2 ####[facility] LABORATORYCLIA [id number] [address] Hematocrit (Bld) [Volume fraction] 34.9 % Low 36.0-46.0 [facility] Comment on above: Order Comment: Speci men Type: BLOOD SPECIMENOrdering Facility: [facility] Address: [address] [address] Performed By: #### 5 8410-2 ####[facility] LABORATORYCLIA [id number] [address] Hemoglobin (Bld) [Mass/Vol] 12.2 g/dL Normal 11.5-15.5 [facility] Comment on above: Order Comment: Speci men Type: BLOOD SPECIMENOrdering Facility: [facility] Address: [address] [place] [address] Performed By: #### 5 8410-2 ####[facility] LABORATORYCLIA [id number] [address] MCH (RBC) [Entitic mass] 34.2 pg High 26.0-34.0 [facility] Comment on above: Order Comment: Speci men Type: BLOOD SPECIMENOrdering Facility: [facility] Address: [address] [place] [address] Performed By: #### 5 8410-2 ####[facility] LABORATORYCLIA [id number] [address] MCHC (RBC) [Mass/Vol] 35.0 g/dL Normal 30.5-36.0 [facility] Comment on above: Order Comment: Speci men Type: BLOOD SPECIMENOrdering Facility: [facility] Address: [address] [place] [address] Performed By: #### 5 8410-2 ####[facility] LABORATORYCLIA [id number] [address] MCV (RBC) [Entitic vol] 97.8 fL Normal 80.0-100.0 [facility] Comment on above: Order Comment: Speci men Type: BLOOD SPECIMENOrdering Facility: [facility] Address: [address] [place] [address] Performed By: #### 5 8410-2 ####[facility] LABORATORYCLIA [id number] [place] [address] [place] Nucleated RBC (Bld) [#/Vol] 10*3/uL Normal <0.01 [facility] Comment on above: Order Comment: Speci men Type: BLOOD SPECIMENOrdering Facility: [facility] Address: [address] [place] [address] Performed By: #### 5 8410-2 ####[facility] LABORATORYCLIA [id number] [place] [address] [place] Platelet mean volume (Bld) [Entitic vol] 10.8 fL Normal 9.0-12.7 [facility] Comment on above: Order Comment: Speci men Type: BLOOD SPECIMENOrdering Facility: [facility] Address: [address] [place] [address] Performed By: #### 5 8410-2 ####[facility] LABORATORYCLIA [id number] [address] [place] Platelets (Bld) [#/Vol] 111 10*3/uL Low 150-400 [facility] Comment on above: Order Comment: Speci men Type: BLOOD SPECIMENOrdering Facility: [facility] Address: [address] [place] [address] Result Comment: Resu lts checked and verified Performed By: #### 5 8410-2 ####[facility] LABORATORYCLIA [id number] [place] [address] [place] RBC (Bld) [#/Vol] 3.57 10*6/uL Low 3.90-5.20 [facility] Comment on above: Order Comment: Speci men Type: BLOOD SPECIMENOrdering Facility: [facility] Address: [address] [place] [address] Performed By: #### 5 8410-2 ####[facility] LABORATORYCLIA [id number] [address] [place] WBC (Bld) [#/Vol] 7.36 10*3/uL Normal 3.70-11.00 [facility] Comment on above: Order Comment: Speci men Type: BLOOD SPECIMENOrdering Facility: [facility] Address: [address] [address] Performed By: #### 5 8410-2 ####[facility] LABORATORYCLIA [id number] [place] [address] [place] THERAPY NTon 09-18-2022 THERAPY NT Normal [facility] THERAPY NT Normal [facility] Basic metabolic 2000 panelon 09-17-2022 Anion gap [Moles/Vol] 14 mmol/L Normal 9-18 [facility] Comment on above: Order Comment: Speci men Type: BLOOD SPECIMENOrdering Facility: [facility] Address: [address] [place] [address] Performed By: #### 2 4321-2, , 2776-10 ####[facility] LABORATORYCLIA [id number] [place] [address] [place] Calcium [Mass/Vol] 7.4 mg/dL Low 8.5-10.2 [facility] Comment on above: Order Comment: Speci men Type: BLOOD SPECIMENOrdering Facility: [facility] Address: [address] [place] [address] Performed By: #### 2 4321-2, , 2776-10 ####[facility] LABORATORYCLIA [id number] [place] [address] [place] Chloride [Moles/Vol] 100 mmol/L Normal 97-105 [facility] Comment on above: Order Comment: Speci men Type: BLOOD SPECIMENOrdering Facility: [facility] Address: [address] [address] Performed By: #### 2 4321-2, , 2776-10 ####[facility] LABORATORYCLIA [id number] [place] [address] [place] CO2 [Moles/Vol] 17 mmol/L Low 22-30 [facility] Comment on above: Order Comment: Speci men Type: BLOOD SPECIMENOrdering Facility: [facility] Address: [address] [address] Performed By: #### 2 4321-2, 45966-1, 2776-10 ####[facility] LABORATORYCLIA [id number] [address] [id number] [place] [facility] Creatinine [Mass/Vol] 0.41 mg/dL Low 0.58-0.96 [facility] Comment on above: Order Comment: Speci men Type: BLOOD SPECIMENOrdering Facility: [facility] Address: [address] [address] Performed By: #### 2 4321-2, , 2776-10 ####[facility] LABORATORYCLIA [id number] [address] ESTIMATED GLOMERULAR FILTRATION RATE 105 mL/min/1.73m??? Normal >=60 [facility] Comment on above: Order Comment: Cary lujan Type: BLOOD SPECIMENOrdering Facility: [facility] Address: [address] [place] [address] Result Comment: Mariely mated Glomerular Filtration Rate [...] Performed By: #### 2 4321-2, , 2776-10 ####[facility] LABORATORYCLIA [id number] [address] [place] [facility] Glucose [Mass/Vol] 88 mg/dL Normal 74-99 [facility] Comment on above: Order Comment: Speci [facility] Type: BLOOD SPECIMENOrdering Facility: [facility] Address: [address] [place] [address] Result Comment: The [place] [employer] (ADA) provides guidance for cutoff [...] Standards of Medical Care in Diabetes 2016, [place] [employer]. Diabetes Care. 2016.39(Suppl 1). Performed By: #### 2 4321-2, , 2776-10 ####[facility] LABORATORYCLIA [id number] [place] [address] [place] Potassium [Moles/Vol] Normal [facility] Comment on above: Order Comment: Cary lujan Type: BLOOD SPECIMENOrdering Facility: [facility] Address: [address] [place] [address] Result Comment: Unab le to assay due to interference from hemolysis. Suggest reorder as clinically indicated. Performed By: #### 2 4321-2, , 2776-10 ####[facility] LABORATORYCLIA [id number] [address] [place] Sodium [Moles/Vol] 131 mmol/L Low 136-144 [facility] Comment on above: Order Comment: Cary lujan Type: BLOOD SPECIMENOrdering Facility: [facility] Address: [address] [place] [address] Performed By: #### 2 4321-2, , 2776-10 ####[facility] LABORATORYCLIA [id number] [place] [address] [place] Urea nitrogen [Mass/Vol] 6 mg/dL Low 7-21 [facility] Comment on above: Order Comment: Cary lujan Type: BLOOD SPECIMENOrdering Facility: [facility] Address: [address] [place] [address] Performed By: #### 2 4321-2, , 2776-10 ####[facility] LABORATORYCLIA [id number] [place] [address] [place] CASE MGT INIT ASSESon 2021 CASE MGT INIT ASSES Normal [facility] CBC panel Auto (Bld)on 09-17 Erythrocyte distribution width (RBC) [Ratio] 14.9 % Normal 11.5-15.0 [facility] Comment on above: Order Comment: Speci men Type: BLOOD SPECIMENOrdering Facility: [facility] Address: [address] [place] [address] Performed By: #### 5 8410-2 ####[facility] LABORATORYCLIA [id number] [address] Hematocrit (Bld) [Volume fraction] 36.9 % Normal 36.0-46.0 [facility] Comment on above: Order Comment: Speci men Type: BLOOD SPECIMENOrdering Facility: [facility] Address: [address] [place] [address] Performed By: #### 5 8410-2 ####[facility] LABORATORYCLIA [id number] [address] OF [facility] Hemoglobin (Bld) [Mass/Vol] 12.5 g/dL Normal 11.5-15.5 [facility] Comment on above: Order Comment: Speci men Type: BLOOD SPECIMENOrdering Facility: [facility] Address: [address] [place] [address] Performed By: #### 5 8410-2 ####[facility] LABORATORYCLIA [id number] [address] [place] MCH (RBC) [Entitic mass] 34.2 pg High 26.0-34.0 [facility] Comment on above: Order Comment: Speci men Type: BLOOD SPECIMENOrdering Facility: [facility] Address: [address] [place] [address] Performed By: #### 5 8410-2 ####[facility] LABORATORYCLIA [id number] [address] MCHC (RBC) [Mass/Vol] 33.9 g/dL Normal 30.5-36.0 [facility] Comment on above: Order Comment: Speci men Type: BLOOD SPECIMENOrdering Facility: [facility] Address: [address] [address] Performed By: #### 5 8410-2 ####[facility] LABORATORYCLIA [id number] [address] MCV (RBC) [Entitic vol] 101.1 fL High 80.0-100.0 [facility] Comment on above: Order Comment: Speci men Type: BLOOD SPECIMENOrdering Facility: [facility] Address: [address] [place] [address] Performed By: #### 5 8410-2 ####[facility] LABORATORYCLIA [id number] [address] [facility] Nucleated RBC (Bld) [#/Vol] 10*3/uL Normal <0.01 [facility] Comment on above: Order Comment: Speci men Type: BLOOD SPECIMENOrdering Facility: [facility] Address: [address] [place] [address] Performed By: #### 5 8410-2 ####[facility] LABORATORYCLIA [id number] [address] [place] [facility] Platelet mean volume (Bld) [Entitic vol] 11.2 fL Normal 9.0-12.7 [facility] Comment on above: Order Comment: Speci men Type: BLOOD SPECIMENOrdering Facility: [facility] Address: [address] [place] [address] Performed By: #### 5 8410-2 ####[facility] LABORATORYCLIA [id number] [address] Platelets (Bld) [#/Vol] 97 10*3/uL Low 150-400 [facility] Comment on above: Order Comment: Speci men Type: BLOOD SPECIMENOrdering Facility: [facility] Address: [address] [place] [address] Result Comment: Plat elet count confirmed by manual review of peripheral blood smear Performed By: #### 5 8410-2 ####[facility] LABORATORYCLIA [id number] [address] RBC (Bld) [#/Vol] 3.65 10*6/uL Low 3.90-5.20 [facility] Comment on above: Order Comment: Speci men Type: BLOOD SPECIMENOrdering Facility: [facility] Address: [address] [place] [address] Performed By: #### 5 8410-2 ####[facility] LABORATORYCLIA [id number] [place] [address] [place] WBC (Bld) [#/Vol] 6.16 10*3/uL Normal 3.70-11.00 [facility] Comment on above: Order Comment: Speci men Type: BLOOD SPECIMENOrdering Facility: [facility] Address: [address] [place] [address] Performed By: #### 5 8410-2 ####[facility] LABORATORYCLIA [id number] [address] Magnesium SerPl-mCncon 09-17 Magnesium [Mass/Vol] 1.7 mg/dL Normal 1.7-2.3 [facility] Comment on above: Order Comment: Speci men Type: BLOOD SPECIMENOrdering Facility: [facility] Address: [address] [place] [address] Performed By: #### 2 4321-2, , 2776-10 ####[facility] LABORATORYCLIA [id number] [address] [place] Phosphate SerPl-mCncon 09-17 Phosphate [Mass/Vol] 1.1 mg/dL Low 2.7-4.8 [facility] Comment on above: Order Comment: Speci men Type: BLOOD SPECIMENOrdering Facility: [facility] Address: [address] [place] [address] Performed By: #### 2 4321-2, , 2776-10 ####[facility] LABORATORYCLIA [id number] [place] [id number] [place] Basic metabolic 2000 panelon 09-16-2022 Anion gap [Moles/Vol] 14 mmol/L Normal 9-18 [facility] Comment on above: Order Comment: Speci men Type: BLOOD SPECIMENOrdering Facility: [facility] Address: [address] [place] [address] Performed By: #### 2 4321-2, 2776-10, ####[facility] LABORATORYCLIA [id number] [place] [address] [place] Calcium [Mass/Vol] 7.7 mg/dL Low 8.5-10.2 [facility] Comment on above: Order Comment: Speci men Type: BLOOD SPECIMENOrdering Facility: [facility] Address: [address] [place] [address] Performed By: #### 2 4321-2, 2776-10, ####[facility] LABORATORYCLIA [id number] [place] [address] [place] Chloride [Moles/Vol] 100 mmol/L Normal 97-105 [facility] Comment on above: Order Comment: Speci men Type: BLOOD SPECIMENOrdering Facility: [facility] Address: [address] [place] [address] Performed By: #### 2 4321-2, 2776-10, ####[facility] LABORATORYCLIA [id number] [place] [address] [place] CO2 [Moles/Vol] 23 mmol/L Normal 22-30 [facility] Comment on above: Order Comment: Speci men Type: BLOOD SPECIMENOrdering Facility: [facility] Address: [address] [place] [address] Performed By: #### 2 4321-2, 2776-10, ####[facility] LABORATORYCLIA [id number] [place] [address] [place] Creatinine [Mass/Vol] 0.42 mg/dL Low 0.58-0.96 [facility] Comment on above: Order Comment: Speci men Type: BLOOD SPECIMENOrdering Facility: [facility] Address: [address] Performed By: #### 2 4321-2, 2777-, ####[facility] SERVICESCLIA [id number] [address] [place] ESTIMATED GLOMERULAR FILTRATION RATE 105 mL/min/1.73m??? Normal >=60 [facility] Comment on above: Order Comment: Cary lujan Type: BLOOD SPECIMENOrdering Facility: [facility] Address: [address] [place] [address] Result Comment: Mariely mated Glomerular Filtration Rate [...] actual GFR. Performed By: #### 2 4321-2, 2777, ####[facility] LABORATORYIA [id number] [place] [address] [place] Glucose [Mass/Vol] 102 mg/dL High 74-99 [facility] Comment on above: Order Comment: Cary lujan Type: BLOOD SPECIMENOrdering Facility: [facility] Address: [address] [place] [address] Result Comment: The [place] [employer] (ADA) provides guidance for cutoff [...] Standards of Medical Care in Diabetes 2016, [place] [employer]. Diabetes Care. 2016.39(Suppl 1). Performed By: #### 2 4321-2, 2776-10, ####[facility] LABORATORYCLIA [id number] [place], [place] [address] [place] [address] [place] Potassium [Moles/Vol] 3.5 mmol/L Low 3.7-5.1 [facility] Comment on above: Order Comment: Speci men Type: BLOOD SPECIMENOrdering Facility: [facility] Address: [address] [place] [address] Performed By: #### 2 4321-2, 2776-10, ####[facility] LABORATORYCLIA [id number] [address] [place] [facility] Sodium [Moles/Vol] 137 mmol/L Normal 136-144 [facility] Comment on above: Order Comment: Speci men Type: BLOOD SPECIMENOrdering Facility: [facility] Address: [address] [place] [address] Performed By: #### 2 4321-2, 2776-10, ####[facility] LABORATORYCLIA [id number] [address] Urea nitrogen [Mass/Vol] 11 mg/dL Normal 7-21 [facility] Comment on above: Order Comment: Speci men Type: BLOOD SPECIMENOrdering Facility: [facility] Address: [address] [place] [address] Performed By: #### 2 4321-2, 2776-10, ####[facility] LABORATORYCLIA [id number] [address] CBC panel Auto (Bld)on 09-16 Erythrocyte distribution width (RBC) [Ratio] 15.4 % High 11.5-15.0 [facility] Comment on above: Order Comment: Speci men Type: BLOOD SPECIMENOrdering Facility: [facility] Address: [address] [place] [address] Performed By: #### 5 8410-2 ####[facility] LABORATORYCLIA [id number] [address] Hematocrit (Bld) [Volume fraction] 36.7 % Normal 36.0-46.0 [facility] Comment on above: Order Comment: Speci men Type: BLOOD SPECIMENOrdering Facility: [facility] Address: [address] [place] [address] Performed By: #### 5 8410-2 ####[facility] LABORATORYCLIA [id number] [address] [place] [facility] Hemoglobin (Bld) [Mass/Vol] 12.3 g/dL Normal 11.5-15.5 [facility] Comment on above: Order Comment: Speci men Type: BLOOD SPECIMENOrdering Facility: [facility] Address: [address] [place] [address] Performed By: #### 5 8410-2 ####[facility] LABORATORYCLIA [id number] [address] [place] MCH (RBC) [Entitic mass] 33.7 pg Normal 26.0-34.0 [facility] Comment on above: Order Comment: Speci men Type: BLOOD SPECIMENOrdering Facility: [facility] Address: [address] [place] [address] Performed By: #### 5 8410-2 ####[facility] LABORATORYCLIA [id number] [address] [place] MCHC (RBC) [Mass/Vol] 33.5 g/dL Normal 30.5-36.0 [facility] Comment on above: Order Comment: Speci men Type: BLOOD SPECIMENOrdering Facility: [facility] Address: [address] [place] [address] Performed By: #### 5 8410-2 ####[facility] LABORATORYCLIA [id number] [address] [place] MCV (RBC) [Entitic vol] 100.5 fL High 80.0-100.0 [facility] Comment on above: Order Comment: Speci men Type: BLOOD SPECIMENOrdering Facility: [facility] Address: [address] [place] [address] Performed By: #### 5 8410-2 ####[facility] LABORATORYCLIA [id number] [address] [place] Nucleated RBC (Bld) [#/Vol] 10*3/uL Normal <0.01 [facility] Comment on above: Order Comment: Speci men Type: BLOOD SPECIMENOrdering Facility: [facility] Address: [address] [place] [address] Performed By: #### 5 8410-2 ####[facility] LABORATORYCLIA [id number] [address] [place] Platelet mean volume (Bld) [Entitic vol] 10.2 fL Normal 9.0-12.7 [facility] Comment on above: Order Comment: Speci men Type: BLOOD SPECIMENOrdering Facility: [facility] Address: [address] [place] [address] Performed By: #### 5 8410-2 ####[facility] LABORATORYCLIA [id number] [address] [place] Platelets (Bld) [#/Vol] 118 10*3/uL Low 150-400 [facility] Comment on above: Order Comment: Speci men Type: BLOOD SPECIMENOrdering Facility: [facility] Address: [address] [place] [address] Performed By: #### 5 8410-2 ####[facility] LABORATORYCLIA [id number] [address] [place] RBC (Bld) [#/Vol] 3.65 10*6/uL Low 3.90-5.20 [facility] Comment on above: Order Comment: Speci men Type: BLOOD SPECIMENOrdering Facility: [facility] Address: [address] [place] [address] Performed By: #### 5 8410-2 ####[facility] LABORATORYCLIA [id number] [address] [place] WBC (Bld) [#/Vol] 6.17 10*3/uL Normal 3.70-11.00 [facility] Comment on above: Order Comment: Speci men Type: BLOOD SPECIMENOrdering Facility: [facility] Address: [address] [place] [address] Performed By: #### 5 8410-2 ####[facility] LABORATORYCLIA [id number] [address] [place] CONSULT PROGon 09-16-2022 CONSULT PROG Normal [facility] Magnesium SerPl-ncon 09-16 Magnesium [Mass/Vol] 2.2 mg/dL Normal 1.7-2.3 [facility] Comment on above: Order Comment: Speci men Type: BLOOD SPECIMENOrdering Facility: [facility] Address: [address] [place] [address] Performed By: #### 2 4321-2, 2777-1, 13309-6 ####[facility] LABORATORYCLIA [id number] [address] [place] Phosphate SerPl-mCncon 09-16 Phosphate [Mass/Vol] 1.2 mg/dL Low 2.7-4.8 [facility] Comment on above: Order Comment: Speci men Type: BLOOD SPECIMENOrdering Facility: [facility] Address: [address] [place] [address] Performed By: #### 2 4321-2, 2777-1, 89154-8 ####[facility] LABORATORYCLIA [id number] [address] [place] THERAPY NTon 09-16-2022 THERAPY NT Normal [facility] THERAPY NT Normal [facility] Basic metabolic 2000 panelon 09-15-2022 Anion gap [Moles/Vol] 22 mmol/L High 9-18 [facility] Comment on above: Order Comment: Speci men Type: BLOOD SPECIMENOrdering Facility: [facility] Address: [address] [place] [address] Performed By: #### 1 9123-9, 2777-1, 01176-2 ####[facility] LABORATORYCLIA [id number] [address] [place] [facility] Calcium [Mass/Vol] 8.6 mg/dL Normal 8.5-10.2 [facility] Comment on above: Order Comment: Speci men Type: BLOOD SPECIMENOrdering Facility: [facility] Address: [address] [place] [address] Performed By: #### 1 9123-9, 2777, 93772-2 ####[facility] LABORATORYCLIA [id number] [place] [address] [place] Chloride [Moles/Vol] 99 mmol/L Normal 97-105 [facility] Comment on above: Order Comment: Speci men Type: BLOOD SPECIMENOrdering Facility: [facility] Address: [address] [place] [address] Performed By: #### 1 9123-9, 27704-13, 75001-0 ####[facility] LABORATORYCLIA [id number] [address] [place] [facility] CO2 [Moles/Vol] 20 mmol/L Low 22-30 [facility] Comment on above: Order Comment: Speci men Type: BLOOD SPECIMENOrdering Facility: [facility] Address: [address] [place] [address] Performed By: #### 1 9123-9, 27704-13, 78004-0 ####[facility] LABORATORYCLIA [id number] [address] [place] Creatinine [Mass/Vol] 0.48 mg/dL Low 0.58-0.96 [facility] Comment on above: Order Comment: Speci men Type: BLOOD SPECIMENOrdering Facility: [facility] Address: [address] [place] [address] Performed By: #### 1 9123-9, 27704-13, 79542-7 ####[facility] LABORATORYCLIA [id number] [address] [place] ESTIMATED GLOMERULAR FILTRATION RATE 101 mL/min/1.73m??? Normal >=60 [facility] Comment on above: Order Comment: Speci men Type: BLOOD SPECIMENOrdering Facility: [facility] Address: [address] [address] Result Comment: Mariely mated Glomerular Filtration Rate [...] GFR. Performed By: #### 1 9123-9, 2777-1, 11007-9 ####[facility] LABORATORYCLIA [id number] [place] [address] [place] Glucose [Mass/Vol] 69 mg/dL Low 74-99 [facility] Comment on above: Order Comment: Cary lujan Type: BLOOD SPECIMENOrdering Facility: [facility] Address: [address] [place] [address] Result Comment: The [place] [employer] (ADA) provides guidance for cutoff [...] Standards of Medical Care in Diabetes 2016, [place] [employer]. Diabetes Care. 2016.39(Suppl 1). Performed By: #### 1 9123-9, 2777-1, 83429-8 ####[facility] LABORATORYCLIA [id number] [place] [address] [place] Potassium [Moles/Vol] 4.2 mmol/L Normal 3.7-5.1 [facility] Comment on above: Order Comment: Cary [facility] Type: BLOOD SPECIMENOrdering Facility: [facility] Address: [address] [address] Performed By: #### 1 9123-9, 2777-, 45747-2 ####[facility] LABORATORYCLIA [id number] [address] STATES [facility] Sodium [Moles/Vol] 141 mmol/L Normal 136-144 [facility] Comment on above: Order Comment: Speci men Type: BLOOD SPECIMENOrdering Facility: [facility] Address: [address] [place] [address] Performed By: #### 1 9123-9, 2777, 37222-1 ####[facility] LABORATORYCLIA [id number] [address] STATES [facility] Urea nitrogen [Mass/Vol] 14 mg/dL Normal 7-21 [facility] Comment on above: Order Comment: Speci men Type: BLOOD SPECIMENOrdering Facility: [facility] Address: [address] [place] [address] Performed By: #### 1 9123-9, 2777, 64315-9 ####[facility] LABORATORYCLIA [id number] [address] [place] [facility] CBC panel Auto (Bld)on 09-15 Erythrocyte distribution width (RBC) [Ratio] 15.5 % High 11.5-15.0 [facility] Comment on above: Order Comment: Speci men Type: BLOOD SPECIMENOrdering Facility: [facility] Address: [address] [place] [address] Performed By: #### 5 8410-2 ####[facility] LABORATORYCLIA [id number] [address] Hematocrit (Bld) [Volume fraction] 40.3 % Normal 36.0-46.0 [facility] Comment on above: Order Comment: Speci men Type: BLOOD SPECIMENOrdering Facility: [facility] Address: [address] [place] [address] Performed By: #### 5 8410-2 ####[facility] LABORATORYCLIA [id number] [address] Hemoglobin (Bld) [Mass/Vol] 13.9 g/dL Normal 11.5-15.5 [facility] Comment on above: Order Comment: Speci men Type: BLOOD SPECIMENOrdering Facility: [facility] Address: [address] [place] [address] Performed By: #### 5 8410-2 ####[facility] LABORATORYCLIA [id number] [address] MCH (RBC) [Entitic mass] 34.2 pg High 26.0-34.0 [facility] Comment on above: Order Comment: Speci men Type: BLOOD SPECIMENOrdering Facility: [facility] Address: [address] [place] [address] Performed By: #### 5 8410-2 ####[facility] LABORATORYCLIA [id number] [address] MCHC (RBC) [Mass/Vol] 34.5 g/dL Normal 30.5-36.0 [facility] Comment on above: Order Comment: Speci men Type: BLOOD SPECIMENOrdering Facility: [facility] Address: [address] [place] [address] Performed By: #### 5 8410-2 ####[facility] LABORATORYCLIA [id number] [address] MCV (RBC) [Entitic vol] 99.3 fL Normal 80.0-100.0 [facility] Comment on above: Order Comment: Speci men Type: BLOOD SPECIMENOrdering Facility: [facility] Address: [address] [place] [address] Performed By: #### 5 8410-2 ####[facility] LABORATORYCLIA [id number] [address] Nucleated RBC (Bld) [#/Vol] 10*3/uL Normal <0.01 [facility] Comment on above: Order Comment: Speci men Type: BLOOD SPECIMENOrdering Facility: [facility] Address: [address] [place] [address] Performed By: #### 5 8410-2 ####[facility] LABORATORYCLIA [id number] [address] Platelet mean volume (Bld) [Entitic vol] 10.1 fL Normal 9.0-12.7 [facility] Comment on above: Order Comment: Speci men Type: BLOOD SPECIMENOrdering Facility: [facility] Address: [address] [place] [address] Performed By: #### 5 8410-2 ####[facility] LABORATORYCLIA [id number] [address] [place] Platelets (Bld) [#/Vol] 141 10*3/uL Low 150-400 [facility] Comment on above: Order Comment: Speci men Type: BLOOD SPECIMENOrdering Facility: [facility] Address: [address] [place] [address] Performed By: #### 5 8410-2 ####[facility] LABORATORYCLIA [id number] [address] [place] RBC (Bld) [#/Vol] 4.06 10*6/uL Normal 3.90-5.20 [facility] Comment on above: Order Comment: Speci men Type: BLOOD SPECIMENOrdering Facility: [facility] Address: [address] [place] [address] Performed By: #### 5 8410-2 ####[facility] LABORATORYCLIA [id number] [place] [address] [place] WBC (Bld) [#/Vol] 7.07 10*3/uL Normal 3.70-11.00 [facility] Comment on above: Order Comment: Speci men Type: BLOOD SPECIMENOrdering Facility: [facility] Address: [address] [place] [address] Performed By: #### 5 8410-2 ####[facility] LABORATORYCLIA [id number] [address] [place] CONSULT PROGon 09-15-2022 CONSULT PROG Normal [facility] CONSULT PROG Normal [facility] CT BRAIN WO IVCONon 09-15-[address] BRAIN WO IVCON Normal [facility] ED NOTEon 09-15-2022 ED NOTE HNO ID: [id number] Author: Imani Feliz, RN Service: Emergency Medicine Author Type: Registered Nurse Type: ED Notes Filed: 09/15/2022 2:27 PM Note Text: Report called. Bed not ready Normal [facility] HIGH SENSITIVITY TROPONIN To n 09-15-2022 HIGH SENSITIVITY JACI 11 ng/L Normal <12 [facility] Comment on above: Order Comment: Speci men Type: BLOOD SPECIMENOrdering Facility: [facility] Address: [address] [place] [address] Result Comment: When assessing risk for acute [...] day MACE. Performed By: #### H STNT ####[facility] LABORATORYCLIA [id number] [place] [address] [place] Magnesium SerPl-ncon 09-15 Magnesium [Mass/Vol] 1.4 mg/dL Low 1.7-2.3 [facility] Comment on above: Order Comment: Speci men Type: BLOOD SPECIMENOrdering Facility: [facility] Address: [address] [place] [address] Performed By: #### 1 9123-9, 2777-1, 82232-8 ####[facility] LABORATORYCLIA [id number] [place] [address] [place] Phosphate SerPl-mCncon 09-15 Phosphate [Mass/Vol] 2.2 mg/dL Low 2.7-4.8 [facility] Comment on above: Order Comment: Rejii men Type: BLOOD SPECIMENOrdering Facility: [facility] Address: [address] [place] [address] Performed By: #### 1 9123-9, 2777-1, 23052-3 ####[facility] LABORATORYCLIA [id number] [address] [place] TOX SCREEN ROUT URon 022 Amphetamines Confirm (U) [Mass/Vol] Negative Normal Negative [facility] Comment on above: Order Comment: Speci men Type: URINE SPECIMENOrdering Facility: [facility] Address: [address] [place] [address] Result Comment: Cuto ff threshold at 1000 ng/mL. Performed By: #### U TOX2 ####[facility] LABORATORYCLIA [id number] [address] BARBITURATES, URINE Negative Normal Negative [facility] Comment on above: Order Comment: Speci men Type: URINE SPECIMENOrdering Facility: [facility] Address: [address] [place] [address] Result Comment: Cuto ff threshold at 200 ng/mL. Performed By: #### U TOX2 ####[facility] LABORATORYCLIA [id number] [place] [address] [place] BENZODIAZEPINES, UR Negative Normal Negative [facility] Comment on above: Order Comment: Speci men Type: URINE SPECIMENOrdering Facility: [facility] Address: [address] [place] [address] Result Comment: Cuto ff threshold at 200 ng/mL. Performed By: #### U TOX2 ####[facility]ORATORYCLIA [id number] [address] [place] CANNABINOIDS,URINE Negative Normal Negative [facility] Comment on above: Order Comment: Speci men Type: URINE SPECIMENOrdering Facility: [facility] Address: [address] [place] [address] Result Comment: Cuto ff threshold at 50 ng/mL. Performed By: #### U TOX2 ####[facility]ORATORYCLIA [id number] [address] [place] Cocaine Ql (U) Negative Normal Negative [facility] Comment on above: Order Comment: Speci men Type: URINE SPECIMENOrdering Facility: [facility] Address: [address] [place] [address] Result Comment: Cuto ff threshold at 300 ng/mL. Performed By: #### U TOX2 ####[facility]ORATORYCLIA [id number] [address] Ethanol (U) [Mass/Vol] 69 mg/dL High <11 [facility] Comment on above: Order Comment: Speci men Type: URINE SPECIMENOrdering Facility: [facility] Address: [address] [place] [address] Performed By: #### U TOX2 ####[facility]ORATORYCLIA [id number] [address] Opiates Screen Ql (U) Negative Normal Negative [facility] Comment on above: Order Comment: Speci men Type: URINE SPECIMENOrdering Facility: [facility] Address: [address] [place] [address] Result Comment: Cuto ff threshold at 300 ng/mL. Performed By: #### U TOX2 ####[facility] LABORATORYCLIA [id number] [address] oxyCODONE cutoff Screen (U) [Mass/Vol] Negative Normal Negative [facility] Comment on above: Order Comment: Speci men Type: URINE SPECIMENOrdering Facility: [facility] Address: [address] [place] [address] Performed By: #### U TOX2 ####[facility]ORATORYCLIA [id number] [address] Phencyclidine Ql (U) Negative Normal Negative [facility] Comment on above: Order Comment: Speci men Type: URINE SPECIMENOrdering Facility: [facility] Address: [address] [place] [address] Result Comment: Cuto ff threshold at 25 ng/mL. Performed By: #### U TOX2 ####[facility]ORATORYCLIA [id number] [address] Urinalysis complete panel (U )on 09-15-2022 Bacteria LM.HPF (Urine sed) [#/Area] Moderate Abnormal None Seen [facility] Comment on above: Order Comment: Speci men Type: URINE SPECIMENOrdering Facility: [facility] Address: [address] [place] [address] Performed By: #### 2 4356-8 ####[facility] LABORATORYCLIA [id number] [address] Bilirubin Ql (U) Negative Normal Negative [facility] Comment on above: Order Comment: Speci men Type: URINE SPECIMENOrdering Facility: [facility] Address: [address] [place] [address] Performed By: #### 2 4356-8 ####[facility] LABORATORYCLIA [id number] [address] Clarity (Unsp spec) Clear Normal Clear [facility] Comment on above: Order Comment: Speci men Type: URINE SPECIMENOrdering Facility: [facility] Address: [address] [place] [address] Performed By: #### 2 4356-8 ####[facility] LABORATORYCLIA [id number] [address] Color (U) Yellow Normal yellow [facility] Comment on above: Order Comment: Speci men Type: URINE SPECIMENOrdering Facility: [facility] Address: [address] [place] [address] Performed By: #### 2 4356-8 ####[facility] LABORATORYCLIA [id number] [address] Glucose Test strip (U) [Mass/Vol] Negative Normal Negative [facility] Comment on above: Order Comment: Speci men Type: URINE SPECIMENOrdering Facility: [facility] Address: [address] [place] [address] Performed By: #### 2 4356-8 ####[facility] LABORATORYCLIA [id number] [address] Hemoglobin Ql (U) Negative Normal Negative [facility] Comment on above: Order Comment: Speci men Type: URINE SPECIMENOrdering Facility: [facility] Address: [address] [place] [address] Performed By: #### 2 4356-8 ####[facility] LABORATORYCLIA [id number] [address] STATES [facility] Ketones Ql (U) 3+ Abnormal Negative [facility] Comment on above: Order Comment: Speci men Type: URINE SPECIMENOrdering Facility: [facility] Address: [address] [place] [address] Performed By: #### 2 4356-8 ####[facility] LABORATORYCLIA [id number] [address] Leukocyte esterase Test strip Ql (U) 25 Jennifer/mL Abnormal Negative [facility] Comment on above: Order Comment: Speci men Type: URINE SPECIMENOrdering Facility: [facility] Address: [address] [place] [address] Performed By: #### 2 4356-8 ####[facility] LABORATORYCLIA [id number] [address] Nitrite Ql (U) 2+ Abnormal Negative [facility] Comment on above: Order Comment: Speci men Type: URINE SPECIMENOrdering Facility: [facility] Address: [address] [place] [address] Performed By: #### 2 4356-8 ####[facility] LABORATORYCLIA [id number] [address] [place] pH (U) 5.5 [pH] Normal 5.0-8.0 [facility] Comment on above: Order Comment: Speci men Type: URINE SPECIMENOrdering Facility: [facility] Address: [address] [place] [address] Performed By: #### 2 4356-8 ####[facility] LABORATORYCLIA [id number] [address] [place] Protein (U) [Mass/Vol] Trace Abnormal Negative [facility] Comment on above: Order Comment: Speci men Type: URINE SPECIMENOrdering Facility: [facility] Address: [address] [place] [address] Performed By: #### 2 4356-8 ####[facility] LABORATORYCLIA [id number] [address] [place] RBC LM.HPF (Urine sed) [#/Area] 0-3 /HPF Normal 0-3 /HPF [facility] Comment on above: Order Comment: Speci men Type: URINE SPECIMENOrdering Facility: [facility] Address: [address] [place] [address] Performed By: #### 2 4356-8 ####[facility] LABORATORYCLIA [id number] [address] [place] [facility] Specific gravity (U) [Rel density] 1.016 Normal 1.005-1.030 [facility] Comment on above: Order Comment: Speci men Type: URINE SPECIMENOrdering Facility: [facility] Address: [address] [place] [address] Performed By: #### 2 4356-8 ####[facility] LABORATORYCLIA [id number] [address] Urobilinogen Ql (U) Normal Normal Negative [facility] Comment on above: Order Comment: Speci men Type: URINE SPECIMENOrdering Facility: [facility] Address: [address] [place] [address] Performed By: #### 2 4356-8 ####[facility] LABORATORYCLIA [id number] [address] [place] WBC LM.HPF (Urine sed) [#/Area] 0-5 /HPF Normal 0-5 /HPF [facility] Comment on above: Order Comment: Speci men Type: URINE SPECIMENOrdering Facility: [facility] Address: [address] [place] [address] Performed By: #### 2 4356-8 ####[facility] LABORATORYCLIA [id number] [address] OF [facility] 25(OH)D3 SerPl-mCncon 2021 25-hydroxyvitamin D3 [Mass/Vol] 38.8 ng/mL Normal >=30.0 [facility] Comment on above: Order Comment: Speci men Type: BLOOD SPECIMENOrdering Facility: [facility] Address: [address] [place] [address] Result Comment: Clas sification of 25 [place] Vitamin D status:Deficiency: <= 20.0 ng/ml.Insufficiency: 21.0-29.0 ng/ml.Sufficiency: >= 30.0 ng/ml. Performed By: #### 1 989-3 ####[facility] LABORATORYCLIA [id number] [address] [facility] ALLIED HEALTHon 09-14-2022 ALLIED HEALTH Normal [facility] ALLIED HEALTH Normal [facility] Absolute lymphocyte countOrd ered By: Dr. Arias on 09-14-2022 Lymphocytes Auto (Unsp spec) [#/Vol] 1.85 10*3/uL 0.83-4.51 [facility] Amylase SerPl-cCncon 022 Amylase [Catalytic activity/Vol] 57 U/L Normal 30-104 [facility] Comment on above: Order Comment: Speci men Type: BLOOD SPECIMENOrdering Facility: [facility] Address: [address] [place] [address] Performed By: #### 3 040-3, 46677-7, 1798-8 ####[facility] LABORATORYCLIA [id number] [address] [place] Basophil percentageOrdered B y: Dr. Arias on 09-14-2022 Basophils/100 WBC (Bld) 1.5 % 0-1 [facility] Eosinophils/100 WBC (Bld) 1.5 % 0-5 [facility] Neutrophils (Bld) [#/Vol] 3.2 10*3/uL 2.0-7.7 [facility] Neutrophils/100 WBC (Bld) 55.5 % 47-70 [facility] WBC (Bld) [#/Vol] 5.9 10*3/uL 4.4-11.0 [facility] Bilirubin [Mass/Vol] 0.70 mg/dL 0.20-1.00 [facility] Comment on above: For patients on eltr ombopag therapy, use of Dimension Burnett TBIL is not recommended. Chloride [Moles/Vol] 107 mmol/L 98-107 [facility] Glucose [Mass/Vol] 81 mg/dL 74-106 [facility] Potassium [Moles/Vol] 4.7 mmol/L 3.5-5.1 [facility] Comment on above: Moderate Hemolysis, Result may be falsely increased. Protein [Mass/Vol] 6.8 g/dL 6.4-8.2 [facility] Sodium [Moles/Vol] 138 mmol/L 136-145 [facility] Blood erythrocytes count (nu mber/volume)Ordered By: Dr. Arias on 09-14-2022 RBC (Bld) [#/Vol] 4.33 10*6/uL 4.2-5.4 [facility] Blood hemoglobin measurement (mass/volume)Ordered By: Dr. Arias on 09-14-2022 Hemoglobin (Bld) [Mass/Vol] 15.1 g/dL 12.0-15.0 [facility] Blood lymphocytes/100 leukoc ytesOrdered By: Dr. Arias on 09-14-2022 Lymphocytes/100 WBC (Bld) 31.6 % 19-41 [facility] Blood monocytes/100 leukocyt esOrdered By: Dr. Arias on 09-14-2022 Monocytes/100 WBC (Bld) 9.7 % 0-10 [facility] Blood platelet mean volumeOr dered By: Dr. Arias on 09-14-2022 Platelet mean volume (Bld) [Entitic vol] 9.6 fL 6.2-12.0 [facility] CBC panel Auto (Bld)on 09-14 Erythrocyte distribution width (RBC) [Ratio] 15.4 % High 11.5-15.0 [facility] Comment on above: Order Comment: Speci men Type: BLOOD SPECIMENOrdering Facility: [facility] Address: [address] [address] Performed By: #### 5 8410-2 ####[facility] LABORATORYCLIA [id number] [address] Hematocrit (Bld) [Volume fraction] 44.1 % Normal 36.0-46.0 [facility] Comment on above: Order Comment: Speci men Type: BLOOD SPECIMENOrdering Facility: [facility] Address: [address] [place] [address] Performed By: #### 5 8410-2 ####[facility] LABORATORYCLIA [id number] [address] [facility] Hemoglobin (Bld) [Mass/Vol] 15.0 g/dL Normal 11.5-15.5 [facility] Comment on above: Order Comment: Speci men Type: BLOOD SPECIMENOrdering Facility: [facility] Address: [address] [place] [address] Performed By: #### 5 8410-2 ####[facility] LABORATORYCLIA [id number] [address] MCH (RBC) [Entitic mass] 33.7 pg Normal 26.0-34.0 [facility] Comment on above: Order Comment: Speci men Type: BLOOD SPECIMENOrdering Facility: [facility] Address: [address] [place] [address] Performed By: #### 5 8410-2 ####[facility] LABORATORYCLIA [id number] [place] MCHC (RBC) [Mass/Vol] 34.0 g/dL Normal 30.5-36.0 [facility] Comment on above: Order Comment: Speci men Type: BLOOD SPECIMENOrdering Facility: [facility] Address: [address] [place] [address] Performed By: #### 5 8410-2 ####[facility] LABORATORYCLIA [id number] [place] MCV (RBC) [Entitic vol] 99.1 fL Normal 80.0-100.0 [facility] Comment on above: Order Comment: Speci men Type: BLOOD SPECIMENOrdering Facility: [facility] Address: [address] [address] Performed By: #### 5 8410-2 ####[facility] LABORATORYCLIA [id number] [address] [place] Nucleated RBC (Bld) [#/Vol] 10*3/uL Normal <0.01 [facility] Comment on above: Order Comment: Speci men Type: BLOOD SPECIMENOrdering Facility: [facility] Address: [address] [address] Performed By: #### 5 8410-2 ####[facility] LABORATORYCLIA [id number] [address] [place] Platelet mean volume (Bld) [Entitic vol] 9.8 fL Normal 9.0-12.7 [facility] Comment on above: Order Comment: Speci men Type: BLOOD SPECIMENOrdering Facility: [facility] Address: [address] [address] Performed By: #### 5 8410-2 ####[facility] LABORATORYCLIA [id number] [address] [place] Platelets (Bld) [#/Vol] 160 10*3/uL Normal 150-400 [facility] Comment on above: Order Comment: Speci men Type: BLOOD SPECIMENOrdering Facility: [facility] Address: [address] [address] Performed By: #### 5 8410-2 ####[facility] LABORATORYCLIA [id number] [place] [address] [place] RBC (Bld) [#/Vol] 4.45 10*6/uL Normal 3.90-5.20 [facility] Comment on above: Order Comment: Speci men Type: BLOOD SPECIMENOrdering Facility: [facility] Address: [address] [address] Performed By: #### 5 8410-2 ####[facility] LABORATORYCLIA [id number] [address] [place] WBC (Bld) [#/Vol] 5.14 10*3/uL Normal 3.70-11.00 [facility] Comment on above: Order Comment: Speci men Type: BLOOD SPECIMENOrdering Facility: [facility] Address: [address] [place] [address] Performed By: #### 5 8410-2 ####[facility] LABORATORYCLIA [id number] [address] [place] CONSULTon 09-14-2022 CONSULT Normal [facility] CT BRAIN WO IVCONon 09-14-20 CT BRAIN WO IVCON Normal [facility] Comprehensive metabolic 2000 panelon 09-14-2022 Albumin [Mass/Vol] 3.2 g/dL Low 3.9-4.9 [facility] Comment on above: Order Comment: Speci men Type: BLOOD SPECIMENOrdering Facility: [facility] Address: [address] [place] [address] Performed By: #### 3 040-3, 06928-1, 1798-05 ####[facility] LABORATORYCLIA [id number] [address] [place] ALP [Catalytic activity/Vol] 67 U/L Normal 34-123 [facility] Comment on above: Order Comment: Speci men Type: BLOOD SPECIMENOrdering Facility: [facility] Address: [address] [place] [address] Performed By: #### 3 040-3, 61456-6, 1798-05 ####[facility] LABORATORYCLIA [id number] [place] [address] [place] ALT With P-5'-P [Catalytic activity/Vol] 48 U/L High 7-38 [facility] Comment on above: Order Comment: Speci men Type: BLOOD SPECIMENOrdering Facility: [facility] Address: [address] [address] Performed By: #### 3 040-3, 02544-8, 1798-05 ####[facility] LABORATORYCLIA [id number] [place] [address] [place] Anion gap [Moles/Vol] 17 mmol/L Normal 9-18 [facility] Comment on above: Order Comment: Speci men Type: BLOOD SPECIMENOrdering Facility: [facility] Address: [address] [place] [address] Performed By: #### 3 040-3, , 1798-05 ####[facility] LABORATORYCLIA [id number] [address] [place] [id number] [place] AST With P-5'-P [Catalytic activity/Vol] 122 U/L High 13-35 [facility] Comment on above: Order Comment: Speci men Type: BLOOD SPECIMENOrdering Facility: [facility] Address: [address] [place] [address] Performed By: #### 3 040-3, , 1798-05 ####[facility] LABORATORYCLIA [id number] [address] [place] Bilirubin [Mass/Vol] 0.4 mg/dL Normal 0.2-1.3 [facility] Comment on above: Order Comment: Speci men Type: BLOOD SPECIMENOrdering Facility: [facility] Address: [address] [place] [address] Performed By: #### 3 040-3, , 1798-05 ####[facility] LABORATORYCLIA [id number] [address] STATES OF [facility] Calcium [Mass/Vol] 7.5 mg/dL Low 8.5-10.2 [facility] Comment on above: Order Comment: Speci men Type: BLOOD SPECIMENOrdering Facility: [facility] Address: [address] [place] [address] Performed By: #### 3 040-3, , 1798-05 ####[facility] LABORATORYCLIA [id number] [address] [place] Chloride [Moles/Vol] 103 mmol/L Normal 97-105 [facility] Comment on above: Order Comment: Speci men Type: BLOOD SPECIMENOrdering Facility: [facility] Address: [address] [place] [address] Performed By: #### 3 040-3, , 1798-05 ####[facility] LABORATORYCLIA [id number] [address] STATES OF [facility] CO2 [Moles/Vol] 21 mmol/L Low 22-30 [facility] Comment on above: Order Comment: Speci men Type: BLOOD SPECIMENOrdering Facility: [facility] Address: [address] [place] [address] Performed By: #### 3 040-3, , 1798-05 ####[facility] LABORATORYCLIA [id number] [address] OF [facility] Creatinine [Mass/Vol] 0.55 mg/dL Low 0.58-0.96 [facility] Comment on above: Order Comment: Speci men Type: BLOOD SPECIMENOrdering Facility: [facility] Address: [address] [place] [address] Performed By: #### 3 040-3, , 1798-05 ####[facility] LABORATORYCLIA [id number] [address] ESTIMATED GLOMERULAR FILTRATION RATE 98 mL/min/1.73m??? Normal >=60 [facility] Comment on above: Order Comment: Speci men Type: BLOOD SPECIMENOrdering Facility: [facility] Address: [address] [place] [address] Result Comment: Mariely mated Glomerular Filtration Rate [...] actual GFR. Performed By: #### 3 040-3, , 1798-05 ####[facility] LABORATORYCLIA [id number] [place] [address] [place] Glucose [Mass/Vol] 89 mg/dL Normal 74-99 [facility] Comment on above: Order Comment: Speci men Type: BLOOD SPECIMENOrdering Facility: [facility] Address: [address] [place] [address] Result Comment: The [place] [employer] (ADA) provides guidance for cutoff [...] Standards of Medical Care in Diabetes 2016, [place] [employer]. Diabetes Care. 2016.39(Suppl 1). Performed By: #### 3 040-3, , 1798-05 ####[facility] LABORATORYCLIA [id number] [place] [address] [place] Potassium [Moles/Vol] 3.6 mmol/L Low 3.7-5.1 [facility] Comment on above: Order Comment: Speci men Type: BLOOD SPECIMENOrdering Facility: [facility] Address: [address] [place], [place] [address] Performed By: #### 3 040-3, , 1798-05 ####[facility] LABORATORYCLIA [id number] [place] [address] [place] Protein [Mass/Vol] 5.9 g/dL Low 6.3-8.0 [facility] Comment on above: Order Comment: Speci men Type: BLOOD SPECIMENOrdering Facility: [facility] Address: [address] [place] [address] Performed By: #### 3 040-3, , 1798-05 ####[facility] LABORATORYCLIA [id number] [place] [address] [place] Sodium [Moles/Vol] 141 mmol/L Normal 136-144 [facility] Comment on above: Order Comment: Speci men Type: BLOOD SPECIMENOrdering Facility: [facility] Address: [address] [place], [place] [address] Performed By: #### 3 040-3, 21443-4, 1798 ####[facility] LABORATORYCLIA [id number] [address] [id number] [place] Urea nitrogen [Mass/Vol] 12 mg/dL Normal 7-21 [facility] Comment on above: Order Comment: Speci men Type: BLOOD SPECIMENOrdering Facility: [facility] Address: [address] [place] [address] Performed By: #### 3 040-3, 00649-0, 8 ####[facility] LABORATORYCLIA [id number] [address] [id number] [place] Determination of erythrocyte mean corpuscular volume (MCV)Ordered By: Dr. Arias on 09-14-2022 MCV (RBC) [Entitic vol] 99.5 fL 81-99 [facility] ECG COMPLETEon 09-14-2022 ECG COMPLETE [facility] ED NOTEon 09-14-2022 ED NOTE HNO ID: [id number] Author: Marta Alvarado RN Service: ? Author Type: Registered Nurse Type: ED Notes Filed: 09/14/2022 8:24 PM Note Text: Neal sequeira- asked to be listed as pt emergency contact [phone] [facility] ED NOTE HNO ID: [id number] Author: Marta Alvarado RN Service: Emergency Medicine Author Type: Registered Nurse Type: ED Notes Filed: 09/14/2022 8:15 PM Note Text: Pt unable to provide urine sample at this time. [facility] ED NOTE HNO ID: [id number] Author: Ap Paredes RN Service: ? Author Type: Registered Nurse Type: ED Notes Filed: 09/14/2022 5:31 PM Note Text: Bed: 06-ED Expected date: Expected time: Means of arrival: Comments: trauma Normal [facility] ED NOTE HNO ID: [id number] Author: Ap Paredes RN Service: Emergency Medicine Author Type: Registered Nurse Type: ED Notes Filed: 09/14/2022 5:24 PM Note Text: Blood bank and OR called and notified Normal [facility] ED NOTE HNO ID: [id number] Author: Kate Carrington Service: ? Author Type: ? Type: ED Notes Filed: 09/14/2022 5:07 PM Note Text: Bed: 04-ED-BOOM Expected date: 09/14/22 Expected time: Means of arrival: [facility] Comments: Normal [facility] ED PROV NOTEon 09-14-2022 ED PROV NOTE Normal [facility] Ethanol SerPl-mCncon 022 Ethanol [Mass/Vol] 257 mg/dL High <11 [facility] Comment on above: Order Comment: Cary lujan Type: BLOOD SPECIMENOrdering Facility: [facility] Address: [address] [place] [address] Result Comment: Valu es > 80 mg/dL may indicate intoxication Performed By: #### 5 643-2 ####[facility] LABORATORYCLIA [id number] [address] HIGH SENSITIVITY TROPONIN To n 09-14-2022 HIGH SENSITIVITY JACI 16 ng/L High <12 [facility] Comment on above: Order Comment: Cary lujan Type: BLOOD SPECIMENOrdering Facility: [facility] Address: [address] [place] [address] Result Comment: When assessing risk for acute [...] day MACE. Performed By: #### H STNT ####[facility] LABORATORYCLIA [id number] [address] [place] HISTORY PHYSICALon HISTORY PHYSICAL Normal [facility] HISTORY PHYSICAL Normal [facility] Hematocrit Auto (Bld) [Volum e fraction]Ordered By: Dr. Arias on 09-14-2022 Hematocrit (Bld) [Volume fraction] 43.1 % 37-47 [facility] INR in Blood by Coagulation assayOrdered By: Dr. Arias on 09-14-2022 INR Coag (Bld) [Relative time] 1.0 {INR} [facility] Laboratory - Chemistry and C hemistry - challengeOrdered By: Dr. Arias on 09-14-2022 ALP [Catalytic activity/Vol] 67 U/L 45-117 [facility] ALT [Catalytic activity/Vol] 73 U/L 13-56 [facility] CO2 [Moles/Vol] 22.0 mmol/L 21.0-32.0 [facility] Globulin (S) [Mass/Vol] 3.8 g/dL 2.2-4.2 [facility] Urea nitrogen/Creatinine [Mass ratio] 21.2 mg/mg 10-20 [facility] Laboratory - CoagulationOrde red By: Dr. Arias on 09-14-2022 aPTT Coag (Bld) [Time] 27.4 s 24.1-36.2 [facility] PT Coag (PPP) [Time] 12.9 s 11.7-14.9 [facility] Laboratory - Hematology and Cell countsOrdered By: Dr. Arias on 09-14-2022 Erythrocyte distribution width (RBC) [Entitic vol] 57.0 fL 35.1-43.9 [facility] Erythrocyte distribution width (RBC) [Ratio] 15.5 % 11.6-14.6 [facility] Immature granulocytes/100 WBC (Bld) 0.200 % 0.0-0.9 [facility] Comment on above: IG% - Immature Granu locytes (promyelocytes, myelocytes and metamyelocytes) > 1% indicates that a LEFT SHIFT is Present. MCH (RBC) [Entitic mass] 34.9 pg 27.0-32.0 [facility] Nucleated RBC/100 WBC (Bld) [Ratio] 0 % 0-5 [facility] Lipase SerPl-cCncon 09-14-20 22 Lipase [Catalytic activity/Vol] 55 U/L Normal 16-61 [facility] Comment on above: Order Comment: Cary lujan Type: BLOOD SPECIMENOrdering Facility: [facility] Address: [address] [facility] [place] [address] Performed By: #### 3 040-3, 87317-7, 1798-8 ####[facility] LABORATORYCLIA [id number] [place] [address] [place] MCHC Auto (RBC) [Mass/Vol]Or dered By: Dr. Arias on 09-14-2022 MCHC (RBC) [Mass/Vol] 35.0 g/dL 32-36 [facility] No Panel InformationOrdered By: Dr. Arias on 09-14-2022 Estimated Creatinine Clearance Calc 42.68 ml/min [facility] Estimated GFR (MDRD) Amer 114 mL/min >60 [facility] Comment on above: GFR Calc Estimated GFR (MDRD) Non-Af Amer 94 mL/min >60 [facility] Comment on above: Non- GFR Calc Ethyl Alcohol Level 340.0 mg/dL [facility] Comment on above: Critical Result(s) C alled at: 15:13:33 09/14/2022 by: Michael Barger RN (ER). Results read back by same.The serum:whole blood ethanol ratio is approximately 1.14and varies slightly with hematocrit. Medical Alcohol reference interval and critical value innon-tolerant individuals; 50 - 100 Impairment 100 Intoxication 100 - 250 Severe Poisoning 250 - 400 Deep/possible fatal coma PT panel Coag (PPP)on 2021 INR Coag (PPP) [Relative time] {INR} Low 0.9-1.3 [facility] Comment on above: Order Comment: Cary lujan Type: BLOOD SPECIMENOrdering Facility: [facility] Address: [place] [address] Result Comment: Adele min K Antagonist (VKA) Therapeutic Range: INR 2 to 3 (Target INR of 2.5)Note: For patients treated with VKA drugs, such as warfarin, the [place] [employer] 2012 Guideline recommends [...] al. Chest 2012, 141:7S-47SNishcristo RA, et al. [facility] 2017, 70: 252-289 Performed By: #### 1 4979-9, 58285-2 ####[facility] LABORATORYCLIA [id number] [place] [address] [place] PT Coag (PPP) [Time] 9.8 s Normal 9.7-13.0 [facility] Comment on above: Order Comment: Speci men Type: BLOOD SPECIMENOrdering Facility: [facility] Address: [address] [place], [place] [address] Result Comment: Samp le checked for clot Performed By: #### 1 4979-9, 43452-8 ####[facility] LABORATORYCLIA [id number] [place] [address] [place] Platelets bldOrdered By: Dr. Arias on 09-14-2022 Platelets (Bld) [#/Vol] 146 10*3/uL 150-450 [facility] SARS-CoV-2 RNA Resp Ql CY+p robeon 09-14-2022 SARS-CoV-2 (COVID-19) RNA CY+probe Ql (Resp) COVID 19 RESULT: SARS-CoV-2 (Agent of COVID-19) Not Detected by RT-PCR or equivalent method. This test has been authorized by FDA under an Emergency Use Authorization (EUA). Normal [facility] Comment on above: Performed By: #### 9 4500-6 ####[facility] LABORATORYCLIA [id number] [place] [address] [place] STAPH AUREUS PCRon S. aureus and MRSA panel CY+probe (Nose) Abnormal Negative [facility] Comment on above: Order Comment: Speci men Type: SWAB OF INTERNAL NOSEOrdering Facility: [facility] Address: [address] [place] [address] Result Comment: Posi tive for Staphylococcus aureus by PCR.Positive for MRSA by PCR Performed By: #### S APCR ####[facility] LABORATORYCLIA [id number] [address] Serum or plasma albumin cony urement (mass/volume)Ordered By: Dr. Arias on 09-14-2022 Albumin [Mass/Vol] 3.0 g/dL 3.2-5.0 [facility] Serum or plasma albumin/glob ulin mass ratioOrdered By: Dr. Arias on 09-14-2022 Albumin/Globulin [Mass ratio] 0.8 {ratio} 0.9-2.4 [facility] Serum or plasma calcium cony urement (mass/volume)Ordered By: Dr. Arias on 09-14-2022 Calcium [Mass/Vol] 8.3 mg/dL 8.5-10.1 [facility] Serum or plasma creatinine m easurement (mass/volume)Ordered By: Dr. Arias on 09-14-2022 Creatinine [Mass/Vol] 0.66 mg/dL 0.55-1.02 [facility] Comment on above: The validity of the calculated GFR & GFRAA in patients over 70 years has not been determined. Clinical correlation is essential. Serum or plasma urea nitroge n measurement (mass/volume)Ordered By: Dr. Arias on 09-14-2022 Urea nitrogen [Mass/Vol] 14 mg/dL 7-18 [facility] TYPE + SCREENon 09-14-2022 ABO A Normal [facility] Comment on above: Order Comment: Speci men Type: BLOOD SPECIMENOrdering Facility: [facility] Address: [address] [place] [address] Performed By: #### T SCR ####[facility] BLOOD BANKCLIA [id number] [address] HISTORICAL AB SCR STATUS Negative Normal [facility] Comment on above: Order Comment: Speci men Type: BLOOD SPECIMENOrdering Facility: [facility] Address: [address] [place] [address] Performed By: #### T SCR ####[facility] BLOOD BANKCLIA [id number] [place] [address] [facility] [place] Rh Nom (Bld) Positive Normal [facility] Comment on above: Order Comment: Speci men Type: BLOOD SPECIMENOrdering Facility: [facility] Address: [address] [place] [address] Performed By: #### T SCR ####[facility] BLOOD BANKCLIA [id number] [address] TYPE AND SCREEN EXPIRATION 09/17/2022 23:59 Normal [facility] Comment on above: Order Comment: Speci men Type: BLOOD SPECIMENOrdering Facility: [facility] Address: [address] [place] [address] Performed By: #### T SCR ####[facility] BLOOD BANKCLIA [id number] [address] [place] Thin prep Papanicolaou smear with manual screeningOrdered By: Dr. Arias on 09-14-2022 Thin prep Papanicolaou smear with manual screening 153 U/L 15-37 [facility] Comment on above: Moderate Hemolysis, Result may be falsely increased. Thin prep Papanicolaou smear with manual screening 9 5-15 [facility] XR CHEST 1V FRONTALon 2021 XR CHEST 1V FRONTAL Normal [facility] XR PELVIS 1V APon 09-14-2022 XR PELVIS 1V AP Normal [facility] XR SHLDR >/=3V AP/RIGOBERTO AP/OTH R LTon 09-14-2022 XR SHLDR >/=3V AP/RIGOBERTO AP/OTHR LT Normal [facility] aPTT PPPon 09-14-2022 aPTT Coag (PPP) [Time] 24.1 s Normal 23.0-32.4 [facility] Comment on above: Order Comment: Speci men Type: BLOOD SPECIMENOrdering Facility: [facility] Address: [place] [address] Result Comment: Samp le checked for clot Performed By: #### 1 4979-9, 44515-1 ####[facility] LABORATORYCLIA [id number] [place] [address] [place] Absolute lymphocyte counton 04-27-2022 Lymphocytes Auto (Unsp spec) [#/Vol] 1.91 10*3/uL 0.83-4.51 [facility] Work Phone: Basophil percentageon 2021 Basophil percentage 0 SEEN /hpf 0-5 [facility] Work Phone: Basophils/100 WBC (Bld) 1.4 % 0-1 [facility] Work Phone: Bilirubin [Mass/Vol] 0.30 mg/dL 0.20-1.00 [facility] Work Phone: Comment on above: For patients on eltr ombopag therapy, use of Dimension Burnett TBIL is not recommended. Chloride [Moles/Vol] 100 mmol/L 98-107 [facility] Work Phone: Eosinophils/100 WBC (Bld) 0.6 % 0-5 [facility] Work Phone: Glucose [Mass/Vol] 142 mg/dL 74-106 [facility] Work Phone: Comment on above: Fasting Glucose resu lt greater than or equal to 126 mg/dL suggests DIABETES MELLITUS per A.D.A. criteria. Lactate [Moles/Vol] 6.5 mmol/L 0.4-2.0 [facility] Work Phone: Comment on above: Critical Result(s) C alled at: 10:43:22 04/27/2022 by: Diane Mukherjee. Results read back by same. Neutrophils (Bld) [#/Vol] 4.8 10*3/uL 2.0-7.7 [facility] Work Phone: Neutrophils/100 WBC (Bld) 60.5 % 47-70 [facility] Work Phone: Potassium [Moles/Vol] 3.6 mmol/L 3.5-5.1 [facility] Work Phone: Protein [Mass/Vol] 7.6 g/dL 6.4-8.2 [facility] Work Phone: Sodium [Moles/Vol] 140 mmol/L 136-145 [facility] Work Phone: WBC (Bld) [#/Vol] 7.9 10*3/uL 4.4-11.0 [facility] Work Phone: Bilirubin Test strip Ql (U)o n 04-27-2022 Bilirubin Ql (U) Negative Negative [facility] Work Phone: Blood erythrocytes count (nu mber/volume)on 04-27-2022 RBC (Bld) [#/Vol] 4.46 10*6/uL 4.2-5.4 [facility] Work Phone: Blood hemoglobin measurement (mass/volume)on 04-27-2022 Hemoglobin (Bld) [Mass/Vol] 14.5 g/dL 12.0-15.0 [facility] Work Phone: Blood lymphocytes/100 leukoc yteson 04-27-2022 Lymphocytes/100 WBC (Bld) 24.1 % 19-41 [facility] Work Phone: Blood monocytes/100 leukocyt eson 04-27-2022 Monocytes/100 WBC (Bld) 12.6 % 0-10 [facility] Work Phone: Blood platelet mean volumeon 04-27-2022 Platelet mean volume (Bld) [Entitic vol] 10.0 fL 6.2-12.0 [facility] Work Phone: Determination of erythrocyte mean corpuscular volume (MCV)on 04-27-2022 MCV (RBC) [Entitic vol] 98.7 fL 81-99 [facility] Work Phone: [phone] Hematocrit Auto (Bld) [Volum e fraction]on 04-27-2022 Hematocrit (Bld) [Volume fraction] 44.0 % 37-47 [facility] Work Phone: [phone] Ketones Test strip Ql (U)on 04-27-2022 Ketones Ql (U) 15 mg/dl Negative [facility] Work Phone: Laboratory - Chemistry and C hemistry - challengeon 04-27-2022 ALP [Catalytic activity/Vol] 75 U/L 45-117 [facility] Work Phone: [phone] ALT [Catalytic activity/Vol] 44 U/L 13-56 [facility] Work Phone: [phone] CO2 [Moles/Vol] 20.0 mmol/L 21.0-32.0 [facility] Work Phone: [phone] Globulin (S) [Mass/Vol] 3.9 g/dL 2.2-4.2 [facility] Work Phone: [phone] Urea nitrogen/Creatinine [Mass ratio] 29.7 mg/mg 10-20 [facility] Work Phone: [phone] Laboratory - Drug toxicology on 04-27-2022 Amphetamines Ql (U) Negative <1000 ng/mL [facility] Work Phone: [phone] Benzodiazepines Ql (U) Negative < 200 ng/mL [facility] Work Phone: [phone] Cannabinoids Screen Ql (U) Negative < 50 ng/mL [facility] Work Phone: [phone] Cocaine Ql (U) Negative < 300 ng/mL [facility] Work Phone: [phone] Opiates Ql (U) Negative < 300 ng/mL [facility] Work Phone: [phone] Laboratory - Hematology and Cell countson 04-27-2022 Erythrocyte distribution width (RBC) [Entitic vol] 55.6 fL 35.1-43.9 [facility] Work Phone: [phone] Erythrocyte distribution width (RBC) [Ratio] 15.3 % 11.6-14.6 [facility] Work Phone: Immature granulocytes/100 WBC (Bld) 0.800 % 0.0-0.9 [facility] Work Phone: Comment on above: IG% - Immature Granu locytes (promyelocytes, myelocytes and metamyelocytes) > 1% indicates that a LEFT SHIFT is Present. MCH (RBC) [Entitic mass] 32.5 pg 27.0-32.0 [facility] Work Phone: [phone] Nucleated RBC/100 WBC (Bld) [Ratio] 0 % 0-5 [facility] Work Phone: [phone] [facility] Auto (RBC) [Mass/Vol]on 04-27-2022 [facility] (RBC) [Mass/Vol] 33.0 g/dL 32-36 [facility] Work Phone: [phone] Mucus LM Ql (Urine sed)on Mucus Ql (Urine sed) 0 SEEN /hpf [facility] Work Phone: [phone] Nitrite Test strip Ql (U)on 04-27-2022 Nitrite Ql (U) Negative Negative [facility] Work Phone: [phone] Panel Informationon 04-27 MDMA (Ecstasy) Screen Negative < 500 ng/mL [facility] Work Phone: [phone] Urine Barbiturates Screen Negative < 200 ng/mL [facility] Work Phone: [phone] Urine Drug Screen Comment [facility] Work Phone: [phone] Comment on above: CONFIRMATORY TESTING FOR ALL [...] Urine Methadone Screen Negative < 300 ng/mL [facility] Work Phone: [phone] Estimated Creatinine Clearance Calc 50.91 ml/min [facility] Work Phone: [phone] Estimated GFR (MDRD) Amer 105 mL/min >60 [facility] Work Phone: [phone] Comment on above: GFR Calc Estimated GFR (MDRD) Non-Af Amer 87 mL/min >60 [facility] Work Phone: [phone] Comment on above: Non- GFR Calc Ethyl Alcohol Level 11.0 mg/dL [facility] Work Phone: Comment on above: The serum:whole bloo d ethanol ratio is approximately 1.14and varies slightly with hematocrit. Medical Alcohol reference interval and critical value innon-tolerant individuals; 50 - 100 Impairment 100 Intoxication 100 - 250 Severe Poisoning 250 - 400 Deep/possible fatal coma Troponin I High Sensitivity 7 pg/mL 3.0-54.0 [facility] Work Phone: Comment on above: Please Note: New Maureen t Units and Gender Specific Reference Ranges. For more information see Policy Stat Procedure Burnett High Sensitivity Troponin (TNIH) and attachments. Platelets bldon 04-27-2022 Platelets (Bld) [#/Vol] 164 10*3/uL 150-450 [facility] Work Phone: Protein Test strip Ql (U)on 04-27-2022 Protein Ql (U) 30 mg/dl Negative [facility] Work Phone: [phone] Serum or plasma albumin cony urement (mass/volume)on 04-27-2022 Albumin [Mass/Vol] 3.7 g/dL 3.2-5.0 [facility] Work Phone: [phone] Serum or plasma albumin/glob ulin mass ratioon 04-27-2022 Albumin/Globulin [Mass ratio] 0.9 {ratio} 0.9-2.4 [facility] Work Phone: [phone] Serum or plasma calcium cony urement (mass/volume)on 04-27-2022 Calcium [Mass/Vol] 10.6 mg/dL 8.5-10.1 [facility] Work Phone: Serum or plasma creatinine m easurement (mass/volume)on 04-27-2022 Creatinine [Mass/Vol] 0.71 mg/dL 0.55-1.02 [facility] Work Phone: Comment on above: The validity of the calculated GFR & GFRAA in patients over 70 years has not been determined. Clinical correlation is essential. Serum or plasma prolactin me asurement (mass/volume)on 04-27-2022 Prolactin [Mass/Vol] 159.0 ng/mL [facility] Work Phone: Comment on above: NORMAL REFERENCE RAN GES FEMALE NON- 2.2 - 30.3 ng/mL 8.1 - 347.6 ng/mL POST-MENOPAUSAL 0.7 - 31.5 ng/mL MALE 2.5 - 17.4 ng/mL Serum or plasma urea nitroge n measurement (mass/volume)on 04-27-2022 Urea nitrogen [Mass/Vol] 21 mg/dL 7-18 [facility] Work Phone: [phone] Squamous epithelial cells de tection in urine sediment by light microscopyon 04-27-2022 Epithelial cells.squamous LM Ql (Urine sed) 0-5 SEEN /hpf 5-10 [facility] Work Phone: Thin prep Papanicolaou smear with manual screeningon 04-27-2022 Thin prep Papanicolaou smear with manual screening 62 U/L 15-37 [facility] Work Phone: [phone] Thin prep Papanicolaou smear with manual screening 20 -15 [facility] Work Phone: Urine blood detectionon 04-13 RBC Ql (U) 10 /ul Negative [facility] Work Phone: [phone] RBC Ql (U) 0-5 SEEN /hpf 0-5 [facility] Work Phone: [phone] Urine clarityon 04-27-2022 Clarity (U) Clear Clear [facility] Work Phone: Urine color determinationon 04-27-2022 Color (U) Yellow Yellow [facility] Work Phone: Urine glucose detectionon Glucose Ql (U) Normal mg/dl Normal [facility] Work Phone: Urine leukocyte esterase det ection by dipstickon 04-27-2022 Leukocyte esterase Test strip Ql (U) Negative Negative [facility] Work Phone: Urine pHon 04-27-2022 pH (U) 6.5 [pH] 5.0 - 8.0 [facility] Work Phone: [phone] Urine phencyclidine (PCP) de tectionon 04-27-2022 Phencyclidine Ql (U) Negative < 25 ng/mL [facility] Work Phone: Urine sediment bacteria coun t by microscopy (number/high power field)on 04-27-2022 Bacteria LM.HPF (Urine sed) [#/Area] 0 /[HPF] None Seen [facility] Work Phone: Urine specific gravity measu rementon 04-27-2022 Specific gravity (U) [Rel density] 1.020 1.002-1.030 [facility] Work Phone: Urobilinogen Auto test strip Ql (U)on 04-27-2022 Urobilinogen Ql (U) Normal mg/dl Normal [facility] Work Phone: Absolute lymphocyte counton 02-06-2022 Lymphocytes Auto (Unsp spec) [#/Vol] 1.24 10*3/uL 0.83-4.51 [facility] Work Phone: Amorphous sediment detection in urine sediment by light microscopyon 02-06-2022 Amorphous sediment LM Ql (Urine sed) 1+ [facility] Work Phone: Basophil percentageon 2021 Basophil percentage 0-5 SEEN /hpf 0-5 [facility] Work Phone: Basophils/100 WBC (Bld) 0.8 % 0-1 [facility] Work Phone: Bilirubin [Mass/Vol] 1.10 mg/dL 0.20-1.00 [facility] Work Phone: Comment on above: For patients on eltr ombopag therapy, use of Dimension Burnett TBIL is not recommended. Chloride [Moles/Vol] 102 mmol/L 98-107 [facility]: Eosinophils/100 WBC (Bld) 1.2 % 0-5 [facility] Work Phone: [phone] Glucose [Mass/Vol] 76 mg/dL 74-106 [facility] Work Phone: Neutrophils (Bld) [#/Vol] 3.8 10*3/uL 2.0-7.7 [facility] Work Phone: Neutrophils/100 WBC (Bld) 64.7 % 47-70 [facility] Work Phone: Potassium [Moles/Vol] 3.6 mmol/L 3.5-5.1 [facility] Work Phone: Protein [Mass/Vol] 6.0 g/dL 6.4-8.2 [facility] Work Phone: Sodium [Moles/Vol] 134 mmol/L 136-145 [facility] Work Phone: WBC (Bld) [#/Vol] 5.9 10*3/uL 4.4-11.0 [facility] Work Phone: Bilirubin Test strip Ql (U)o n 02-06-2022 Bilirubin Ql (U) 1 mg/dL Negative [facility] Work Phone: Comment on above: COLOR OF URINE MAY A FFECT DIPSTICK RESULTS. Blood erythrocytes count (nu mber/volume)on 02-06-2022 RBC (Bld) [#/Vol] 3.67 10*6/uL 4.2-5.4 [facility] Work Phone: Blood hemoglobin measurement (mass/volume)on 02-06-2022 Hemoglobin (Bld) [Mass/Vol] 11.9 g/dL 12.0-15.0 [facility] Work Phone: Blood lymphocytes/100 leukoc yteson 02-06-2022 Lymphocytes/100 WBC (Bld) 21.0 % 19-41 [facility] Work Phone: [phone] Blood monocytes/100 leukocyt eson 02-06-2022 Monocytes/100 WBC (Bld) 12.0 % 0-10 [facility] Work Phone: [phone] Blood platelet mean volumeon 02-06-2022 Platelet mean volume (Bld) [Entitic vol] 9.3 fL 6.2-12.0 [facility] Work Phone: Determination of erythrocyte mean corpuscular volume (MCV)on 02-06-2022 MCV (RBC) [Entitic vol] 96.2 fL 81-99 [facility] Work Phone: [phone] Hematocrit Auto (Bld) [Volum e fraction]on 02-06-2022 Hematocrit (Bld) [Volume fraction] 35.3 % 37-47 [facility] Work Phone: Ketones Test strip Ql (U)on 02-06-2022 Ketones Ql (U) 50 mg/dl Negative [facility] Work Phone: Laboratory - Chemistry and C hemistry - challengeon 02-06-2022 ALP [Catalytic activity/Vol] 75 U/L 45-117 [facility] Work Phone: ALT [Catalytic activity/Vol] 20 U/L 13-56 [facility] Work Phone: [phone] CO2 [Moles/Vol] 24.0 mmol/L 21.0-32.0 [facility] Work Phone: [phone] Free T4 [Mass/Vol] 0.78 ng/dL 0.76-1.46 [facility] Work Phone: [phone] Globulin (S) [Mass/Vol] 3.2 g/dL 2.2-4.2 [facility] Work Phone: Urea nitrogen/Creatinine [Mass ratio] 29.7 mg/mg 10-20 [facility] Work Phone: [phone] Laboratory - Drug toxicology on 02-06-2022 Amphetamines Ql (U) Negative <1000 ng/mL [facility] Work Phone: [phone] Benzodiazepines Ql (U) Negative < 200 ng/mL [facility] Work Phone: [phone] Cannabinoids Screen Ql (U) Negative < 50 ng/mL [facility] Work Phone: [phone] Cocaine Ql (U) Negative < 300 ng/mL [facility] Work Phone: [phone] Opiates Ql (U) Negative < 300 ng/mL [facility] Work Phone: [phone] Laboratory - Hematology and Cell countson 02-06-2022 Erythrocyte distribution width (RBC) [Entitic vol] 56.1 fL 35.1-43.9 [facility] Work Phone: [phone] Erythrocyte distribution width (RBC) [Ratio] 15.8 % 11.6-14.6 [facility] Work Phone: [phone] Immature granulocytes/100 WBC (Bld) 0.300 % 0.0-0.9 [facility] Work Phone: [phone] Comment on above: IG% - Immature Granu locytes (promyelocytes, myelocytes and metamyelocytes) > 1% indicates that a LEFT SHIFT is Present. MCH (RBC) [Entitic mass] 32.4 pg 27.0-32.0 [facility] Work Phone: [phone] Nucleated RBC/100 WBC (Bld) [Ratio] 0 % 0-5 [facility] Work Phone: [phone] MCHC Auto (RBC) [Mass/Vol]on 02-06-2022 MCHC (RBC) [Mass/Vol] 33.7 g/dL 32-36 [facility] Work Phone: [phone] Mucus LM Ql (Urine sed)on Mucus Ql (Urine sed) 0 SEEN /hpf [facility] Work Phone: [phone] Nitrite Test strip Ql (U)on 02-06-2022 Nitrite Ql (U) Negative Negative [facility] Work Phone: [phone] Panel Informationon 02-06 MDMA (Ecstasy) Screen Positive < 500 ng/mL [facility] Work Phone: [phone] Urine Barbiturates Screen Positive < 200 ng/mL [facility] Work Phone: [phone] Urine Drug Screen Comment [facility] Work Phone: [phone] Comment on above: CONFIRMATORY TESTING FOR ALL [...] Urine Methadone Screen Negative < 300 ng/mL [facility] Work Phone: [phone] Estimated Creatinine Clearance Calc 45.20 ml/min [facility] Work Phone: [phone] Estimated GFR (MDRD) Amer 144 mL/min >60 [facility] Work Phone: [phone] Comment on above: GFR Calc Estimated GFR (MDRD) Non-Af Amer 119 mL/min >60 [facility] Work Phone: [phone] Comment on above: Non- GFR Calc Platelets bldon 02-06-2022 Platelets (Bld) [#/Vol] 124 10*3/uL 150-450 [facility] Work Phone: [phone] Protein Test strip Ql (U)on 02-06-2022 Protein Ql (U) Negative Negative [facility] Work Phone: [phone] Serum or plasma albumin cony urement (mass/volume)on 02-06-2022 Albumin [Mass/Vol] 2.8 g/dL 3.2-5.0 [facility] Work Phone: [phone] Serum or plasma albumin/glob ulin mass ratioon 02-06-2022 Albumin/Globulin [Mass ratio] 0.9 {ratio} 0.9-2.4 [facility] Work Phone: Serum or plasma calcium cony urement (mass/volume)on 02-06-2022 Calcium [Mass/Vol] 8.7 mg/dL 8.5-10.1 [facility] Work Phone: Serum or plasma creatinine m easurement (mass/volume)on 02-06-2022 Creatinine [Mass/Vol] 0.54 mg/dL 0.55-1.02 [facility] Work Phone: Comment on above: The validity of the calculated GFR & GFRAA in patients over 70 years has not been determined. Clinical correlation is essential. Serum or plasma urea nitroge n measurement (mass/volume)on 02-06-2022 Urea nitrogen [Mass/Vol] 16 mg/dL 7-18 [facility] Work Phone: Squamous epithelial cells de tection in urine sediment by light microscopyon 02-06-2022 Epithelial cells.squamous LM Ql (Urine sed) 0 SEEN /hpf 5-10 [facility] Work Phone: Thin prep Papanicolaou smear with manual screeningon 02-06-2022 Thin prep Papanicolaou smear with manual screening 27 U/L 15-37 [facility] Work Phone: Thin prep Papanicolaou smear with manual screening 8 5-15 [facility] Work Phone: Urine blood detectionon 01-13 RBC Ql (U) Negative Negative [facility] Work Phone: RBC Ql (U) 0 SEEN /hpf 0-5 [facility] Work Phone: Urine clarityon 02-06-2022 Clarity (U) Clear Clear [facility] Work Phone: Urine color determinationon 02-06-2022 Color (U) Yellow Yellow [facility] Work Phone: [phone] Urine glucose detectionon Glucose Ql (U) Normal mg/dl Normal [facility] Work Phone: [phone] Urine leukocyte esterase det ection by dipstickon 02-06-2022 Leukocyte esterase Test strip Ql (U) 25 /ul Negative [facility] Work Phone: Urine pHon 02-06-2022 pH (U) 7.0 [pH] 5.0 - 8.0 [facility] Work Phone: Urine phencyclidine (PCP) de tectionon 02-06-2022 Phencyclidine Ql (U) Negative < 25 ng/mL [facility] Work Phone: Urine sediment bacteria coun t by microscopy (number/high power field)on 02-06-2022 Bacteria LM.HPF (Urine sed) [#/Area] 1 /[HPF] None Seen [facility] Work Phone: Urine specific gravity measu rementon 02-06-2022 Specific gravity (U) [Rel density] 1.010 1.002-1.030 [facility] Work Phone: Urobilinogen Auto test strip Ql (U)on 02-06-2022 Urobilinogen Ql (U) 4 mg/dl Normal [facility] Work Phone: Basophil percentageon 2021 Basophil percentage 3.1 mg/dL 2.5-4.9 [facility] Work Phone: INR in Blood by Coagulation assayon 02-05-2022 INR Coag (Bld) [Relative time] 1.0 {INR} [facility] Work Phone: Laboratory - Chemistry and C hemistry - challengeon 02-05-2022 Magnesium [Mass/Vol] 1.6 mg/dL 1.6-2.6 [facility] Work Phone: Laboratory - Coagulationon 0 02-05-2022 PT Coag (PPP) [Time] 12.6 s 11.7-14.9 [facility] Work Phone: No Panel Informationon 02-05 Ethyl Alcohol Level < 3.0 mg/dL [facility] Work Phone: Comment on above: The serum:whole bloo d ethanol ratio is approximately 1.14and varies slightly with hematocrit. Medical Alcohol reference interval and critical value innon-tolerant individuals; 50 - 100 Impairment 100 Intoxication 100 - 250 Severe Poisoning 250 - 400 Deep/possible fatal coma Thyroid Stimulating Hormone (TSH) 4.04 uIU/mL 0.358-3.74 [facility] Work Phone: Troponin I High Sensitivity 5 pg/mL 3.0-54.0 [facility] Work Phone: Comment on above: Please Note: New Maureen t Units and Gender Specific Reference Ranges. For more information see Policy Stat Procedure Burnett High Sensitivity Troponin (TNIH) and attachments. Basic metabolic 1999 panelOr dered By: Blaise Aponte on 03-15-2021 Anion gap [Moles/Vol] 15 mmol/L 10 - 20 mmol/L [facility] Calcium [Mass/Vol] 9.2 mg/dL 8.4 - 10. 2 mg/dL [facility] Chloride [Moles/Vol] 108 mmol/L 98 - 108 mmol/L [facility] Creatinine [Mass/Vol] 0.48 mg/dL Low 0.60 - 1.20 [facility] GFR/1.73 sq M.predicted CKD-EPI (S/P/Bld) [Vol rate/Area] 100 >=60 mL/min/1.73 m2 [facility] Glucose [Mass/Vol] 78 mg/dL 65 - 99 mg/dL [facility] HCO3 [Moles/Vol] 20 mmol/L Low 21 - 32 mmol/L [facility] Interpretation and review of laboratory results Abnormal [facility] Potassium [Moles/Vol] 3.9 mmol/L 3.5 - 5.1 mmol/L [facility] Sodium [Moles/Vol] 139 mmol/L 135 - 145 mmol/L [facility] Urea nitrogen [Mass/Vol] 17 mg/dL 8 - 25 mg/dL [facility] Urea nitrogen/Creatinine [Mass ratio] 35.4 mg/mg High [facility] The eGFR should be used for monitoring renal function only and not for medication dosing. [facility] Basic metabolic 2000 panelOr dered By: Blaise Aponte on 03-14-2021 Anion gap [Moles/Vol] 13 mmol/L 10 - 20 mmol/L [facility] Calcium [Mass/Vol] 9.3 mg/dL 8.4 - 10. 2 mg/dL [facility] Chloride [Moles/Vol] 107 mmol/L 98 - 108 mmol/L [facility] Creatinine [Mass/Vol] 0.64 mg/dL 0.60 - 1.20 [facility] GFR/1.73 sq M.predicted CKD-EPI (S/P/Bld) [Vol rate/Area] 91 >=60 mL/min/1.73 m2 [facility] Glucose [Mass/Vol] 89 mg/dL 65 - 99 mg/dL [facility] HCO3 [Moles/Vol] 22 mmol/L 21 - 32 mmol/L [facility] Interpretation and review of laboratory results Abnormal [facility] Potassium [Moles/Vol] 4.8 mmol/L 3.5 - 5.1 mmol/L [facility] Comment on above: Slightly Hemolyzed Sodium [Moles/Vol] 137 mmol/L 135 - 145 mmol/L [facility] Urea nitrogen [Mass/Vol] 18 mg/dL 8 - 25 mg/dL [facility] Urea nitrogen/Creatinine [Mass ratio] 28.1 mg/mg High [facility] The eGFR should be used for monitoring renal function only and not for medication dosing. [facility] CBC WITH AUTO DIFFERENTIALOr dered By: Blaise Aponte on 03-14-2021 Basophils (Bld) [#/Vol] 0.07 10*3/uL [facility] Basophils/100 WBC (Bld) 1.2 % [facility] Eosinophils (Bld) [#/Vol] 0.08 10*3/uL [facility] Eosinophils/100 WBC (Bld) 1.4 % [facility] Erythrocyte distribution width (RBC) [Entitic vol] 14.0 % 11.6 - 14.8 % [facility] Hematocrit (Bld) [Volume fraction] 41.9 % 36.0 - 46.0 % [facility] Hemoglobin (Bld) [Mass/Vol] 13.8 g/dL 12.0 - 16.0 g/dL [facility] Immature granulocytes (Bld) [#/Vol] 0.02 10*3/uL [facility] Immature granulocytes/100 WBC (Bld) 0.30 % [facility] Comment on above: The IG parameter is the percentage of metamyelocytes, myelocytes and promyelocytes. An immature granulocyte count (IG) of 1% or more suggests the possibility of infection, an IG count of 3% is very likely related to an infection. Interpretation and review of laboratory results Abnormal [facility] Lymphocytes (Bld) [#/Vol] 1.63 10*3/uL [facility] Lymphocytes/100 WBC (Bld) 28.4 % [facility] MCH (RBC) [Entitic mass] 32.8 pg 26.0 - 34.0 pg [facility] MCHC (RBC) [Mass/Vol] 32.9 g/dL 31.0 - 37.0 g/dL [facility] MCV (RBC) [Entitic vol] 99.5 fL 80.0 - 100.0 fL [facility] Monocytes (Bld) [#/Vol] 0.97 10*3/uL High [facility] Monocytes/100 WBC (Bld) 16.9 % [facility] Neutrophils (Bld) [#/Vol] 2.97 10*3/uL [facility] Neutrophils/100 WBC (Bld) 51.8 % [facility] Nucleated RBC (Bld) [#/Vol] 0.00 10*3/uL [facility] Nucleated RBC/100 WBC (Bld) [Ratio] 0.0 % [facility] Platelet mean volume (Bld) [Entitic vol] 10.6 fL 9.4 - 12.4 fL [facility] Platelets (Bld) [#/Vol] 171 10*3/uL [facility] RBC (Bld) [#/Vol] 4.21 10*6/uL [facility] WBC (Bld) [#/Vol] 5.74 10*3/uL [facility] ECG 12-LEADOrdered By: Vy Basurto on 03-14-2021 Atrial Rate 81 BPM [facility] P Stickney 32 degrees [facility] P-R Interval 132 ms [facility] Q-T Interval 376 ms [facility] QRS Duration 86 ms [facility] QTC Calculation (Bezet) 436 ms [facility] R Stickney -25 degrees [facility] T Stickney 33 degrees [facility] Ventricular Rate 81 BPM [facility] Normal sinus rhythm Normal ECG Confirmed by LELAND MAYA MD ([id number]) on 03/14/2021 2:38:28 PM [facility] Acetaminophen LevelOrdered B y: Shin Bloom on 03-11-2021 Acetaminophen [Mass/Vol] ug/mL [facility] Acetaminophen [Mass/Vol]Orde red By: Shin Bloom on 03-11-2021 Interpretation and review of laboratory results Normal [facility] Alcohol, MedicalOrdered By: Shin Bloom on 03-11-2021 Ethanol [Mass/Vol] mg/dL <10.0 mg/dL [facility] Comment on above: Alcohol cutoff: <10. 00 mg/dL = None Detected Basic metabolic 2000 panelOr dered By: Shin Bloom on 03-11-2021 Anion gap [Moles/Vol] 11 mmol/L 10 - 20 mmol/L [facility] Calcium [Mass/Vol] 9.2 mg/dL 8.4 - 10. 2 mg/dL [facility] Chloride [Moles/Vol] 106 mmol/L 98 - 108 mmol/L [facility] Creatinine [Mass/Vol] 0.44 mg/dL Low 0.60 - 1.20 [facility] GFR/1.73 sq M.predicted CKD-EPI (S/P/Bld) [Vol rate/Area] 103 >=60 mL/min/1.73 m2 [facility] GFR/1.73 sq M.predicted CKD-EPI (S/P/Bld) [Vol rate/Area] 119 >=60 mL/min/1.73 m2 [facility] Glucose [Mass/Vol] 88 mg/dL 65 - 99 mg/dL [facility] HCO3 [Moles/Vol] 24 mmol/L 21 - 32 mmol/L [facility] Interpretation and review of laboratory results Abnormal [facility] Potassium [Moles/Vol] 3.9 mmol/L 3.5 - 5.1 mmol/L [facility] Sodium [Moles/Vol] 137 mmol/L 135 - 145 mmol/L [facility] Urea nitrogen [Mass/Vol] 15 mg/dL 8 - 25 mg/dL [facility] Urea nitrogen/Creatinine [Mass ratio] 34.1 mg/mg High [facility] The eGFR should be used for monitoring renal function only and not for medication dosing. [facility] CBC WITH AUTO DIFFERENTIALOr dered By: Shin Bloom on 03-11-2021 Basophils (Bld) [#/Vol] 0.04 10*3/uL [facility] Basophils/100 WBC (Bld) 0.7 % [facility] Eosinophils (Bld) [#/Vol] 0.07 10*3/uL [facility] Eosinophils/100 WBC (Bld) 1.2 % [facility] Erythrocyte distribution width (RBC) [Entitic vol] 13.7 % 11.6 - 14.8 % [facility] Hematocrit (Bld) [Volume fraction] 37.7 % 36.0 - 46.0 % [facility] Hemoglobin (Bld) [Mass/Vol] 12.4 g/dL 12.0 - 16.0 g/dL [facility] Immature granulocytes (Bld) [#/Vol] 0.01 10*3/uL [facility] Immature granulocytes/100 WBC (Bld) 0.20 % [facility] Comment on above: The IG parameter is the percentage of metamyelocytes, myelocytes and promyelocytes. An immature granulocyte count (IG) of 1% or more suggests the possibility of infection, an IG count of 3% is very likely related to an infection. Interpretation and review of laboratory results Abnormal [facility] Lymphocytes (Bld) [#/Vol] 1.36 10*3/uL [facility] Lymphocytes/100 WBC (Bld) 23.1 % [facility] MCH (RBC) [Entitic mass] 32.9 pg 26.0 - 34.0 pg [facility] MCHC (RBC) [Mass/Vol] 32.9 g/dL 31.0 - 37.0 g/dL [facility] MCV (RBC) [Entitic vol] 100.0 fL 80.0 - 100.0 fL [facility] Monocytes (Bld) [#/Vol] 0.61 10*3/uL [facility] Monocytes/100 WBC (Bld) 10.4 % [facility] Neutrophils (Bld) [#/Vol] 3.79 10*3/uL [facility] Neutrophils/100 WBC (Bld) 64.4 % [facility] Nucleated RBC (Bld) [#/Vol] 0.00 10*3/uL [facility] Nucleated RBC/100 WBC (Bld) [Ratio] 0.0 % [facility] Platelet mean volume (Bld) [Entitic vol] 10.5 fL 9.4 - 12.4 fL [facility] Platelets (Bld) [#/Vol] 145 10*3/uL Low [facility] RBC (Bld) [#/Vol] 3.77 10*6/uL Low [facility] WBC (Bld) [#/Vol] 5.88 10*3/uL [facility] SARS-CoV-2 (COVID-19) Ab IA Ql SARS-COV-2 (ALEJA): Not Detected INFLUENZA A (ALEJA): Not Detected INFLUENZA B (ALEJA): Not Detected Normal Not Detected [facility] Comment on above: Order Comment: This test [...] at the following links: For Healthcare Providers: https://www.fda.gov/media/038440/download For Patients: https://www.fda.gov/media/772955/download Performed By: #### L [id number] #### [facility] [address] [place] [address] Joe Mcpherson M.D. [id number] COVID-19/Influenza A,B Molec ularOrdered By: Shin Bloom on 03-11-2021 SARS-CoV-2 (COVID-19) RNA CY+probe Ql (Resp) Not detected Not Detected [facility] CT HEAD OR BRAIN WITHOUT CON TRASTon [...] AM EDT Finalized by: RICHELLE CREWS on Sat March 11, 2021 2:14:13 AM EDT Normal [facility] Comment on above: Order Comment: Injur y/Trauma or Illness?:Illness/Other How long have you had these symptoms (acute/chronic)?:Acute Reason for exam?:ams Type of Exam?:Initial Additional signs and symptoms?: CT HEAD OR BRAIN WITHOUT CON TRASTOrdered By: Shin Bloom on 03-11-2021 1. No acute intracranial abnormality. Brain atrophy is present, advanced for age. Workstation ID: [id number] [facility] EXAMINATION: CT OF THE BRAIN. HISTORY: Altered [...] the subcortical white matter. Dense carotid calcifications. [facility] Interface, Rad In Fu ji Speechq - [...] present, advanced for age. Workstation ID: [id number] [facility] DRUGS OF ABUSE SCREEN, URINE Ordered By: Shin Bloom on 03-11-2021 Amphetamines Ql (U) Not detected None Detected [facility] Comment on above: Urine Amphetamine Cu toff: < 1000 ng/mL = None Detected Barbiturates Screen Ql (U) Positive Abnormal None Detected [facility] Comment on above: Urine Barbiturates C utoff: < 200 ng/mL = None Detected Benzodiazepines Ql (U) Not detected None Detected [facility] Comment on above: Urine Benzodiazepine Cutoff: < 200 ng/mL = None Detected Buprenorphine Ql (U) Not detected None Detected [facility] Comment on above: Urine Buprenorphine Cutoff: < 5 ng/mL = None Detected Cannabinoids Screen Ql (U) Not detected None Detected [facility] Comment on above: Urine Cannabinoids C utoff: < 50 ng/mL = None Detected Cocaine Ql (U) Not detected None Detected [facility] Comment on above: Urine Cocaine Cutoff : < 300 ng/mL = None Detected fentaNYL+Norfentanyl Screen Ql (U) Not detected None Detected [facility] Comment on above: Urine Fentanyl Cutof f: < 1 ng/mL = None Detected Interpretation and review of laboratory results Abnormal [facility] Methadone Screen Ql (U) Not detected None Detected [facility] Comment on above: Urine Methadone Cuto ff: < 300 ng/mL = None Detected Opiates Screen Ql (U) Not detected None Detecte d [facility] Comment on above: Urine Opiates Cutoff : < 300 ng/mL = None Detected oxyCODONE Ql (U) Not detected None Detected [facility] Comment on above: Urine Oxycodone Cuto ff: < 100 ng/mL = None Detected Screen results shoul d be used for treatment purposes only. Specimen will be kept for 2 weeks, if the sample is adequate. Confirmation testing can be initiated by calling the lab within 2 weeks. [facility] Hepatic function 2000 panelO rdered By: Shin Bloom on 03-11-2021 Albumin [Mass/Vol] 3.6 g/dL 3.2 - 5.2 g/dL [facility] ALP [Catalytic activity/Vol] 86 U/L 40 - 150 U/L [facility] ALT [Catalytic activity/Vol] 6 U/L 0 - 40 U/L [facility] AST [Catalytic activity/Vol] 14 U/L 0 - 45 U/L [facility] Bilirubin [Mass/Vol] 0.4 mg/dL 0.0 - 1.3 mg/dL [facility] Bilirubin.conjugated [Mass/Vol] 0.1 mg/dL 0.0 - 0.4 mg/dL [facility] Protein [Mass/Vol] 5.8 g/dL Low 6.0 - 8.0 g/dL [facility] Light Blue TopOrdered By: Julia Bloom on 03-11-2021 Extra Tube Hold for add-ons. [facility] Comment on above: Auto resulted. [facility] Magnesium LevelOrdered By: Tarsha Basurto on 03-11-2021 Magnesium [Mass/Vol] 1.7 mg/dL 1.6 - 2.4 mg/dL [facility] No Panel InformationOrdered By: Norah Basurto on 03-11-2021 Interpretation and review of laboratory results Normal [facility] No Panel InformationOrdered By: Shin Bloom on 03-11-2021 Extra Tube Hold for add-ons. [facility] Comment on above: Auto resulted. [facility] Interpretation and review of laboratory results Normal [facility] Interpretation and review of laboratory results Abnormal [facility] DRUG SCREEN, BLOODOrdere d By: Sheila Freedman on 03-11-2021 Additional Drugs: Not detected [facility] Serum Drugs Detected: Lorazepam Trazodone None Detected [facility] Test performed by: [facility] [address] [place] [id number] [facility] OsmolalityOrdered By: Norah Basurto on 03-11-2021 Osmolality [Osmolality] 287 mosm/kg [facility] Osmolality [Osmolality]Order ed By: Norah Basurto on 03-11-2021 Interpretation and review of laboratory results Normal [facility] PhosphorusOrdered By: Norah Basurto on 03-11-2021 Phosphate [Mass/Vol] 2.8 mg/dL 2.8 - 4.1 mg/dL [facility] Fountain TopOrdered By: Shin Bloom on 03-11-2021 [facility] SARS-CoV-2 (COVID-19) RNA NA A+probe Ql (Resp)Ordered By: Shin Bloom on 03-11-2021 Influenza A Not detected Not Detected [facility] Influenza B Not detected Not Detected [facility] Interpretation and review of laboratory results Normal [facility] This test was performed under the FDA's [...] at the following links: For Healthcare Providers: https://www.[facility].gov/ca caio/849184/download For Patients: https://www.[facility].gov/ca caio/332958/download [facility] Salicylate LevelOrdered By: Shin Bloom on 03-11-2021 Salicylates [Mass/Vol] mg/dL Low 10.0 - 20.0 mg/dL [facility] TSH DL <= 0.005 mIU/L QnOrde red By: Shin Bloom on 03-11-2021 TSH Qn 1.59 m[IU]/L [facility] URINALYSISOrdered By: Mitch Bloom on 03-11-2021 Bacteria Auto Ql (U) Many Abnormal None Seen /hpf [facility] Clarity Refractometry automated (U) Cloudy Abnormal Clear [facility] Color (U) Yellow Colorless, Yellow [facility] Glucose Auto test strip (U) [Mass/Vol] Negative Negative mg/dL [facility] Ketones (U) [Mass/Vol] Negative Negative mg/dL [facility] Leukocyte esterase Auto test strip Ql (U) Large Abnormal Negative [facility] pH (U) 7.5 [pH] High [facility] Specific gravity (U) [Rel density] 1.017 [facility] UrinalysisOrdered By: Mitch Bloom on 03-11-2021 Bilirubin Ql (U) Negative Negative [facility] Epithelial cells.squamous Auto (Urine sed) [#/Area] 1 [facility] Hemoglobin Auto test strip Ql (U) Negative Negative [facility] Interpretation and review of laboratory results Abnormal [facility] Mucus Auto (Urine sed) [#/Area] Rare None Seen, Rare /lpf [facility] Nitrite Auto test strip Ql (U) Positive Abnormal Negative [facility] Protein (U) [Mass/Vol] Negative Negative mg/dL [facility] RBC Auto (Urine sed) [#/Area] 2 [facility] Urobilinogen (U) [Mass/Vol] mg/dL <2.0 mg/dL [facility] WBC Auto (Urine sed) [#/Area] 95 High [facility] Microscopic examination is performed on all urinalysis samples and only positive findings are reported. The test for blood on the chemical analytic portion of urinalysis may also be positive due to hemoglobinuria and myoglobinuria and if red blood cells are present they are quantified by microscopic examination. [facility] Basic Metabolic Panelon 05-0 -2020 Calcium [Mass/Vol] 9.0 mg/dL Normal 8.4-10.4 [facility] Comment on above: Performed By: #### B MP3, CK3, TROPN, LFT3, HEMDF, NH33, ETOH4 #### [facility] [address] [place] [address] Glucose [Mass/Vol] 94 mg/dL Normal 70-100 [facility] Comment on above: Performed By: #### B MP3, CK3, TROPN, LFT3, HEMDF, NH33, ETOH4 #### [facility] [address] [place] [address] eGFR OTHER > 90.0 Normal >60 [facility] Comment on above: Result Comment: KDIG O [...] CK3, TROPN, LFT3, HEMDF, NH33, ETOH4 #### [facility] [address] [place] [address] Urea nitrogen [Mass/Vol] 10 mg/dL Normal 7-20 [facility] Comment on above: Performed By: #### B MP3, CK3, TROPN, LFT3, HEMDF, NH33, ETOH4 #### [facility] [address] [place] [address] Chloride [Moles/Vol] 110 mmol/L High 98-107 [facility] Comment on above: Performed By: #### B MP3, CK3, TROPN, LFT3, HEMDF, NH33, ETOH4 #### [facility] [address] [place] [address] Potassium [Moles/Vol] 3.4 mmol/L Low 3.5-5.1 [facility] Comment on above: Performed By: #### B MP3, CK3, TROPN, LFT3, HEMDF, NH33, ETOH4 #### [facility] [address] [place] [address] Sodium [Moles/Vol] 137 mmol/L Normal 135-145 [facility] Comment on above: Performed By: #### B MP3, CK3, TROPN, LFT3, HEMDF, NH33, ETOH4 #### [facility] [address] [place] [address] Basic Metabolic PanelOrdered By: Rafael Castillo on 02-18-2021 Anion gap [Moles/Vol] 4 mmol/L Normal 3-13 [facility] Work Phone: Comment on above: Performed By: #### B MP3, CK3, TROPN, LFT3, HEMDF, NH33, ETOH4 #### [facility] [address] [place] [address] CO2 [Moles/Vol] 23 mmol/L Normal 22-30 [facility] Work Phone: Comment on above: Performed By: #### B MP3, CK3, TROPN, LFT3, HEMDF, NH33, ETOH4 #### [facility] [address] [place] [address] Creatinine [Mass/Vol] 0.47 mg/dL Low 0.52-1.25 [facility] Work Phone: Comment on above: Performed By: #### B MP3, CK3, TROPN, LFT3, HEMDF, NH33, ETOH4 #### [facility] [address] [place] [address] GFR/1.73 sq M.predicted among blacks MDRD (S/P/Bld) [Vol rate/Area] mL/min/{1.73_m2} Normal >60 [facility] Work Phone: Comment on above: Performed By: #### B MP3, CK3, TROPN, LFT3, HEMDF, NH33, ETOH4 #### [facility] [address] [place] [place] [address] Basic Metabolic Panel w/ Ref sandra to MGOrdered By: Rafael Castillo on 02-18-2021 Calcium [Mass/Vol] 9.0 mg/dL 8.4 - 10. 4 mg/dL [facility] Work Phone: Chloride [Moles/Vol] 110 mmol/L High 98 - 107 mmol/L [facility] Work Phone: EGFR IF NonAfrican Angolan >90.0 >60 mL/min [facility] Work Phone: Comment on above: KDIGO guidelines [...] of laboratory results Abnormal [facility] Work Phone: Potassium [Moles/Vol] 3.4 mmol/L Low 3.5 - 5.1 mmol/L [employer] Work Phone: Sodium [Moles/Vol] 137 mmol/L 135 - 145 mmol/L [employer] Work Phone: Urea nitrogen (BldV) [Mass/Vol] 10 mg/dL 7 - 20 mg/dL [employer] Work Phone: Test Performed by [facility], [address] [id number] [place], [place] [address] Work Phone: CBCOrdered By: Rafael jones on 02-18-2021 Hematocrit (Bld) [Volume fraction] 38.7 % 35.0 - 47.0 % [employer] Work Phone: Hemoglobin.gastrointe stinal spec 1 Ql (Stl) 13.0 g/dL 11.7 - 16.0 g/dL [employer] Work Phone: Interpretation and review of laboratory results Abnormal [employer] Work Phone: MCH (RBC) [Entitic mass] 33.1 pg 26.0 - 34.0 pg [employer] Work Phone: MCHC (RBC) [Mass/Vol] 33.7 % 32.0 - 36.0 % [employer] Phone: MCV (RBC) [Entitic vol] 98.3 fL High 79.0 - 98.0 fL [employer] Work Phone: Platelet distribution width (Bld) [Ratio] 14.1 % 11.5 - 14.5 % [employer] Work Phone: Platelet mean volume (Bld) [Entitic vol] 8.8 fL 7.4 - 10.4 fL [employer] Work Phone: Platelets (Bld) [#/Vol] 119 10*3/uL Low 140 - 440 10*3/uL [employer] Work Phone: RBC (Bld) [#/Vol] 3.93 10*6/uL 3.80 - 5.2 0 10*6/uL [employer] Work Phone: [phone] WBC (Bld) [#/Vol] 4.4 10*3/uL 3.6 - 10.7 10*3/uL [facility] Work Phone: Test Performed by [facility], [address] [place], [place] [id number] [place] [address] Work Phone: Hemogramon 02-18-2021 Erythrocyte distribution width (RBC) [Ratio] 14.1 % Normal 11.5-14.5 [facility] Comment on above: Performed By: #### B MP3, CK3, TROPN, LFT3, HEMDF, NH33, ETOH4 #### [facility] [address] [place] [address] Hematocrit (Bld) [Volume fraction] 38.7 % Normal 35.0-47.0 [facility] Comment on above: Performed By: #### B MP3, CK3, TROPN, LFT3, HEMDF, NH33, ETOH4 #### [facility] [address] [place] [address] Hemoglobin (Bld) [Mass/Vol] 13.0 g/dL Normal 11.7-16.0 [facility] Comment on above: Performed By: #### B MP3, CK3, TROPN, LFT3, HEMDF, NH33, ETOH4 #### [facility] [address] [place] [address] MCH (RBC) [Entitic mass] 33.1 pg Normal 26.0-34.0 [facility] Comment on above: Performed By: #### B MP3, CK3, TROPN, LFT3, HEMDF, NH33, ETOH4 #### [facility] [address] [place] [address] MCHC 33.7 % Normal 32.0-36.0 [facility] Comment on above: Performed By: #### B MP3, CK3, TROPN, LFT3, HEMDF, NH33, ETOH4 #### [facility] [address] [place] [address] MCV (RBC) [Entitic vol] 98.3 fL High 79.0-98.0 [facility] Comment on above: Performed By: #### B MP3, CK3, TROPN, LFT3, HEMDF, NH33, ETOH4 #### [facility] [address] [place] [address] Platelet mean volume (Bld) [Entitic vol] 8.8 fL Normal 7.4-10.4 [facility] Comment on above: Performed By: #### B MP3, CK3, TROPN, LFT3, HEMDF, NH33, ETOH4 #### [facility] [address] [place] [address] Platelets (Bld) [#/Vol] 119 10*3/uL Low 140-440 [facility] Comment on above: Performed By: #### B MP3, CK3, TROPN, LFT3, HEMDF, NH33, ETOH4 #### [facility] [address] [place] [address] RBC (Bld) [#/Vol] 3.93 10*6/uL Normal 3.80-5.20 [facility] Comment on above: Performed By: #### B MP3, CK3, TROPN, LFT3, HEMDF, NH33, ETOH4 #### [facility] [address] [place] [address] WBC (Bld) [#/Vol] 4.4 10*3/uL Normal 3.6-10.7 [facility] Comment on above: Performed By: #### B MP3, CK3, TROPN, LFT3, HEMDF, NH33, ETOH4 #### [facility] [address] [place] [address] Magnesiumon 02-18-2021 Magnesium [Mass/Vol] 1.8 mg/dL Normal 1.6-2.3 [facility] Comment on above: Performed By: #### K 3, MG3 #### [facility] [address] [place] [address] Magnesium [Mass/Vol] 1.3 mg/dL Low 1.6-2.3 [facility] Comment on above: Performed By: #### B MP3, CK3, TROPN, LFT3, HEMDF, NH33, ETOH4 #### [facility] [address] [place] [address] MagnesiumOrdered By: Rafael Castillo on 02-18-2021 Magnesium [Mass/Vol] 1.8 mg/dL 1.6 - 2.3 mg/dL [facility] Work Phone: Interpretation and review of laboratory results Abnormal [facility] Work Phone: Magnesium [Mass/Vol] 1.3 mg/dL Low 1.6 - 2.3 mg/dL [facility] Work Phone: Test Performed by [facility] [employer] [facility], [address] [place], [place] [address] [facility] Work Phone: No Panel InformationOrdered By: Rafael Castillo on 02-18-2021 Test Performed by [facility] [employer] [facility], [facility] [address] [place], [place] [address] [employer] Work Phone: Potassiumon 02-18-2021 Potassium [Moles/Vol] 4.2 mmol/L Normal 3.5-5.1 [facility] Comment on above: Performed By: #### K 3, MG3 #### [facility] [address] [place] [address] PotassiumOrdered By: Rafael Castillo on 02-18-2021 Potassium [Moles/Vol] 4.2 mmol/L 3.5 - 5.1 mmol/L [facility] Work Phone: Basic Metabolic Panelon 05-0 Calcium [Mass/Vol] 9.1 mg/dL Normal 8.4-10.4 [facility] Comment on above: Performed By: #### B MP3, CK3, TROPN, LFT3, HEMDF, NH33, ETOH4 #### [facility] [address] [place] [address] Glucose [Mass/Vol] 97 mg/dL Normal 70-100 [facility] Comment on above: Performed By: #### B MP3, CK3, TROPN, LFT3, HEMDF, NH33, ETOH4 #### [facility] [address] [place] [address] Urea nitrogen [Mass/Vol] 10 mg/dL Normal 7-20 [facility] Comment on above: Performed By: #### B MP3, CK3, TROPN, LFT3, HEMDF, NH33, ETOH4 #### [facility] [address] [place] [address] Anion gap [Moles/Vol] 4 mmol/L Normal 3-13 [facility] Comment on above: Performed By: #### B MP3, CK3, TROPN, LFT3, HEMDF, NH33, ETOH4 #### [facility] [address] [place] [address] CO2 [Moles/Vol] 25 mmol/L Normal 22-30 [facility] Comment on above: Performed By: #### B MP3, CK3, TROPN, LFT3, HEMDF, NH33, ETOH4 #### [facility] [address] [place] [address] Creatinine [Mass/Vol] 0.50 mg/dL Low 0.52-1.25 [facility] Comment on above: Performed By: #### B MP3, CK3, TROPN, LFT3, HEMDF, NH33, ETOH4 #### [facility] [address] [place] [address] eGFR OTHER > 90.0 Normal >60 [facility] Comment on above: Result Comment: KDIG O [...] CK3, TROPN, LFT3, HEMDF, NH33, ETOH4 #### [facility] [address] [place] [address] GFR/1.73 sq M.predicted among blacks MDRD (S/P/Bld) [Vol rate/Area] mL/min/{1.73_m2} Normal >60 [facility] Comment on above: Performed By: #### B MP3, CK3, TROPN, LFT3, HEMDF, NH33, ETOH4 #### [facility] [address] [place] [address] Potassium [Moles/Vol] 3.6 mmol/L Normal 3.5-5.1 [facility] Comment on above: Performed By: #### B MP3, CK3, TROPN, LFT3, HEMDF, NH33, ETOH4 #### [facility] [address] [place] [address] Chloride [Moles/Vol] 105 mmol/L Normal 98-107 [facility] Comment on above: Performed By: #### B MP3, CK3, TROPN, LFT3, HEMDF, NH33, ETOH4 #### [facility] [address] [place] [address] Sodium [Moles/Vol] 134 mmol/L Low 135-145 [facility] Comment on above: Performed By: #### B MP3, CK3, TROPN, LFT3, HEMDF, NH33, ETOH4 #### [facility] [address] [place] [address] Basic Metabolic Panel w/ Ref sandra to MGOrdered By: Rafael Castillo on 02-17-2021 Anion gap [Moles/Vol] 4 mmol/L 3 - 13 mmol/L [facility] Work Phone: Calcium [Mass/Vol] 9.1 mg/dL 8.4 - 10. 4 mg/dL [facility] Work Phone: Chloride [Moles/Vol] 105 mmol/L 98 - 107 mmol/L [facility] Work Phone: CO2 [Moles/Vol] 25 mmol/L 22 - 30 mmol/L [facility] Work Phone: Creatinine [Mass/Vol] 0.5 mg/dL Low 0.52 - 1.25 mg/dL [facility] Work Phone: [phone] EGFR IF NonAfrican Angolan >90.0 >60 mL/min [facility] Work Phone: [phone] Comment on above: KDIGO guidelines pro vide [...] MDRD (S/P/Bld) [Vol rate/Area] mL/min/{1.73_m2} >60 mL/min [facility] Work Phone: [phone] Glucose [Mass/Vol] 97 mg/dL 70 - 100 mg/dL [facility] Work Phone: [phone] Interpretation and review of laboratory results Abnormal [facility] Work Phone: [phone] Potassium [Moles/Vol] 3.6 mmol/L 3.5 - 5.1 mmol/L [facility] Work Phone: [phone] Sodium [Moles/Vol] 134 mmol/L Low 135 - 145 mmol/L [facility] Work Phone: [phone] Urea nitrogen (BldV) [Mass/Vol] 10 mg/dL 7 - 20 mg/dL [facility] Work Phone: [phone] Test Performed by [facility], [address] [place] [address] [facility] Work Phone: [phone] CBCOrdered By: Rafael jones on 02-17-2021 Hematocrit (Bld) [Volume fraction] 42.2 % 35.0 - 47.0 % [employer] Work Phone: 1 Hemoglobin.gastrointe stinal spec 1 Ql (Stl) 14.4 g/dL 11.7 - 16.0 g/dL [employer] Work Phone: Interpretation and review of laboratory results Abnormal [employer] Work Phone: MCH (RBC) [Entitic mass] 33.1 pg 26.0 - 34.0 pg [employer] Work Phone: MCHC (RBC) [Mass/Vol] 34.2 % 32.0 - 36.0 % [employer] Work Phone: 1 MCV (RBC) [Entitic vol] 96.8 fL 79.0 - 98.0 fL [employer] Work Phone: Platelet distribution width (Bld) [Ratio] 13.9 % 11.5 - 14.5 % [facility] Phone: Platelet mean volume (Bld) [Entitic vol] 8.2 fL 7.4 - 10.4 fL [employer] Work Phone: Platelets (Bld) [#/Vol] 119 10*3/uL Low 140 - 440 10*3/uL [employer] Work Phone: RBC (Bld) [#/Vol] 4.36 10*6/uL 3.80 - 5.2 0 10*6/uL [facility] Work Phone: WBC (Bld) [#/Vol] 6.1 10*3/uL 3.6 - 10.7 10*3/uL [facility] Work Phone: Test Performed by [facility], [address] [place], [place], [place] [address] [facility] Work Phone: Hemogramon 02-17-2021 Erythrocyte distribution width (RBC) [Ratio] 13.9 % Normal 11.5-14.5 [facility] Comment on above: Performed By: #### B MP3, CK3, TROPN, LFT3, HEMDF, NH33, ETOH4 #### [facility] [facility] [address] [place] [address] Hematocrit (Bld) [Volume fraction] 42.2 % Normal 35.0-47.0 [facility] Comment on above: Performed By: #### B MP3, CK3, TROPN, LFT3, HEMDF, NH33, ETOH4 #### [facility] [address] [place] [address] Hemoglobin (Bld) [Mass/Vol] 14.4 g/dL Normal 11.7-16.0 [facility] Comment on above: Performed By: #### B MP3, CK3, TROPN, LFT3, HEMDF, NH33, ETOH4 #### [facility] [address] [place] [address] MCH (RBC) [Entitic mass] 33.1 pg Normal 26.0-34.0 [facility] Comment on above: Performed By: #### B MP3, CK3, TROPN, LFT3, HEMDF, NH33, ETOH4 #### [facility] [address] [place] [address] MCHC 34.2 % Normal 32.0-36.0 [facility] Comment on above: Performed By: #### B MP3, CK3, TROPN, LFT3, HEMDF, NH33, ETOH4 #### [facility] [address] [place] [address] MCV (RBC) [Entitic vol] 96.8 fL Normal 79.0-98.0 [facility] Comment on above: Performed By: #### B MP3, CK3, TROPN, LFT3, HEMDF, NH33, ETOH4 #### [facility] [address] [place] [address] Platelet mean volume (Bld) [Entitic vol] 8.2 fL Normal 7.4-10.4 [facility] Comment on above: Performed By: #### B MP3, CK3, TROPN, LFT3, HEMDF, NH33, ETOH4 #### [facility] [address] [place] [address] Platelets (Bld) [#/Vol] 119 10*3/uL Low 140-440 [facility] Comment on above: Performed By: #### B MP3, CK3, TROPN, LFT3, HEMDF, NH33, ETOH4 #### [facility] [address] [place] [address] RBC (Bld) [#/Vol] 4.36 10*6/uL Normal 3.80-5.20 [facility] [facility] [place] Comment on above: Performed By: #### B MP3, CK3, TROPN, LFT3, HEMDF, NH33, ETOH4 #### [facility] [address] [place] [address] WBC (Bld) [#/Vol] 6.1 10*3/uL Normal 3.6-10.7 [facility] Comment on above: Performed By: #### B MP3, CK3, TROPN, LFT3, HEMDF, NH33, ETOH4 #### [facility] [address] [place] [address] MRI Brain w/o Contraston MRI Brain w/o Contrast Patient Name: JAZMIN JOHNSON Magnetic Resonance Imaging ACCESSION EXAM DATE/TIME PROCEDURE ORDERING PROVIDER [id number] 02/17/2021 13:51 EDT MRI Brain w/o Contrast Bharat CASTILLO MICHAEL THOMAS CPT code 44936 Reason For Exam (MRI Brain w/o Contrast) [...] Transcribed Date and Time: 02/17/2021 2:16 Normal [facility] MRI brain without contrastOr dered By: Rafael Castillo on 02-17-2021 [id number] ACCESSION EXAM DATE/TIME PROCEDURE ORDERING PROVIDER [id number] 02/17/2021 13:51 EDT MRI Brain w/o Contrast Bharat CASTILLO MICHAEL THOMAS CPT code 42281 Reason For Exam (MRI Brain w/o Contrast) [...] TEST COMMUNICATION: Dr. Weston was notified by [employer] serve today at 2:13 PM. Report Dictated on --- Final --- Dictating Physician: MD HEATON NEIL Signed Date and Time: 02/17/2021 2:15 pm Signed by: MD HEATON NEIL Transcribed Date and Time: 02/17/2021 2:16 [facility] Work Phone: [place], [facility] Incoming Radiology Results From [facility] - 02/17/2021 2:16 PM EDT Patient Name: JAZMIN JOHNSON Magnetic Resonance Imaging ACCESSION EXAM DATE/TIME PROCEDURE ORDERING PROVIDER [id number] 02/17/2021 13:51 EDT MRI Brain w/o Contrast Bharat CASTILLO MICHAEL THOMAS CPT code 24790 Reason For Exam (MRI Brain w/o Contrast) [...] NEIL Transcribed Date and Time: 02/17/2021 2:16 [facility] Work Phone: Basic Metabolic Panelon 050 Calcium [Mass/Vol] 8.8 mg/dL Normal 8.4-10.4 [facility] Comment on above: Performed By: #### K 3, MG3 #### [facility] [address] [place] [address] Glucose [Mass/Vol] 74 mg/dL Normal 70-100 [facility] Comment on above: Performed By: #### K 3, MG3 #### [facility] [address] [place] [address] Anion gap [Moles/Vol] 8 mmol/L Normal 3-13 [facility] Comment on above: Performed By: #### K 3, MG3 #### [facility] [address] [place] [address] CO2 [Moles/Vol] 21 mmol/L Low 22-30 [facility] Comment on above: Performed By: #### K 3, MG3 #### [facility] [address] [place] [address] Creatinine [Mass/Vol] 0.54 mg/dL Normal 0.52-1.25 [facility] Comment on above: Performed By: #### K 3, MG3 #### [facility] [address] [place] [address] eGFR OTHER > 90.0 Normal >60 [facility] Comment on above: Result Comment: KDIG O [...] Performed By: #### K 3, MG3 #### [facility] [address] [place] [address] GFR/1.73 sq M.predicted among blacks MDRD (S/P/Bld) [Vol rate/Area] mL/min/{1.73_m2} Normal >60 [facility] Comment on above: Performed By: #### K 3, MG3 #### [facility] [address] [place] [address] Urea nitrogen [Mass/Vol] 10 mg/dL Normal 7-20 [facility] Comment on above: Performed By: #### K 3, MG3 #### [facility] [address] [place] [address] Potassium [Moles/Vol] 3.6 mmol/L Normal 3.5-5.1 [facility] Comment on above: Performed By: #### K 3, MG3 #### [facility] [address] [place] [address] Sodium [Moles/Vol] 134 mmol/L Low 135-145 [facility] Comment on above: Performed By: #### K 3, MG3 #### [facility] [address] [place] [address] Chloride [Moles/Vol] 105 mmol/L Normal 98-107 [facility] Comment on above: Performed By: #### K 3, MG3 #### [facility] [address] [place] [address] Basic Metabolic PanelOrdered By: Frankie Sorensen on 02-16-2021 Anion gap [Moles/Vol] 8 mmol/L 3 - 13 mmol/L [facility] Work Phone: [phone] Calcium [Mass/Vol] 8.8 mg/dL 8.4 - 10. 4 mg/dL [facility] Work Phone: [phone] Chloride [Moles/Vol] 105 mmol/L 98 - 107 mmol/L [facility] Work Phone: [phone] CO2 [Moles/Vol] 21 mmol/L Low 22 - 30 mmol/L [facility] Work Phone: [phone] Creatinine [Mass/Vol] 0.54 mg/dL 0.52 - 1.25 mg/dL [facility] Work Phone: [phone] IF NonAfrican Angolan >90.0 >60 mL/min [facility] Work Phone: [phone] Comment on above: KDIGO guidelines pro vide [...] rate/Area] mL/min/{1.73_m2} >60 mL/min [facility] Work Phone: [phone] Glucose [Mass/Vol] 74 mg/dL 70 - 100 mg/dL [facility] Work Phone: [phone] Potassium [Moles/Vol] 3.6 mmol/L 3.5 - 5.1 mmol/L [facility] Work Phone: [phone] Sodium [Moles/Vol] 134 mmol/L Low 135 - 145 mmol/L [facility] Work Phone: [phone] Urea nitrogen (BldV) [Mass/Vol] 10 mg/dL 7 - 20 mg/dL [facility] [employer] [facility] Work Phone: CBCOrdered By: Rafael jones on 02-16-2021 Hematocrit (Bld) [Volume fraction] 37.8 % 35.0 - 47.0 % [facility] [employer] [facility] Work Phone: Hemoglobin.gastrointe stinal spec 1 Ql (Stl) 13.1 g/dL 11.7 - 16.0 g/dL [employer] [facility] Work Phone: Interpretation and review of laboratory results Abnormal [employer] [facility] Work Phone: MCH (RBC) [Entitic mass] 33.4 pg 26.0 - 34.0 pg [employer] [facility] Work Phone: MCHC (RBC) [Mass/Vol] 34.6 % 32.0 - 36.0 % [employer] [facility] Work Phone: MCV (RBC) [Entitic vol] 96.6 fL 79.0 - 98.0 fL [employer] [facility] Work Phone: Platelet distribution width (Bld) [Ratio] 15.0 % High 11.5 - 14.5 % [employer] [facility] Work Phone: Platelet mean volume (Bld) [Entitic vol] 9.5 fL 7.4 - 10.4 fL [employer] [facility] Work Phone: Platelets (Bld) [#/Vol] 123 10*3/uL Low 140 - 440 10*3/uL [employer] [facility] Work Phone: RBC (Bld) [#/Vol] 3.91 10*6/uL 3.80 - 5.2 0 10*6/uL [facility] [employer] [facility] Work Phone: WBC (Bld) [#/Vol] 4.1 10*3/uL 3.6 - 10.7 10*3/uL [employer] Work Phone: [phone] Test Performed by [facility], [address] [place], [place] [address] [employer] Work Phone: [phone] Urinalysison 2020 Appearance (U) Clear Normal Clear [facility] Comment on above: Result Comment: . Performed By: #### K 3, MG3 #### [facility] [address] [place] [address] Bilirubin,Urine Negative Normal Negative [facility] Comment on above: Result Comment: . Performed By: #### K 3, MG3 #### [facility] [address] [place] [address] Color (U) Light-Yellow Normal Lt. Yellow [facility] Comment on above: Result Comment: . Performed By: #### K 3, MG3 #### [facility] [address] [place] [address] Glucose Ql (U) Normal Normal Normal (<70) [facility] Comment on above: Result Comment: . Performed By: #### K 3, MG3 #### [facility] [address] [place] [address] Ketone,Urine 80 mg/dL Abnormal Negative [facility] Comment on above: Result Comment: . Performed By: #### K 3, MG3 #### [facility] [address] [place] [address] Leukocytes,Urine Negative Normal Negative [facility] Comment on above: Result Comment: . Performed By: #### K 3, MG3 #### [facility] [address] [place] [address] Nitrites,Urine Negative Normal Negative [facility] Comment on above: Result Comment: . Performed By: #### K 3, MG3 #### [facility] [address] [place] [address] Occult Blood,Urine Negative Normal Negative [facility] Comment on above: Result Comment: . Performed By: #### K 3, MG3 #### [facility] [address] [place] [address] pH,Urine 6.5 Normal 5.0-8.0 [facility] Comment on above: Result Comment: . Performed By: #### K 3, MG3 #### [facility] [address] [place] [address] Specific [place],Urine 1.020 Normal 1.005 - 1.030 [facility] Comment on above: Result Comment: . Performed By: #### K 3, MG3 #### [facility] [address] [place] [address] Total Protein,Urine Negative Normal Negative [facility] Comment on above: Result Comment: . Performed By: #### K 3, MG3 #### [facility] [address] [place] [address] Urobilinogen,Urine 2 mg/dL Abnormal Normal (0-1) [facility] Comment on above: Result Comment: . Performed By: #### K 3, MG3 #### [facility] [address] [place] [address] Drugs of Abuseon 02-16-2021 Phencyclidine (PCP), Ur Negative Normal [facility] Comment on above: Result Comment: The expected [...] Performed By: #### K 3, MG3 #### [facility] [address] [place] [address] Methadone, Ur Negative Normal [facility] Comment on above: Performed By: #### K 3, MG3 #### [facility] [address] [place] [address] Opiates, Ur Negative Normal [facility] Comment on above: Performed By: #### K 3, MG3 #### [facility] [address] [place] [address] Amphetamines, Ur Negative Normal [facility] Comment on above: Performed By: #### K 3, MG3 #### [facility] [address] [place] [address] Cocaine, Ur Negative Normal [facility] Comment on above: Performed By: #### K 3, MG3 #### [facility] [address] [place] [address] Benzodiazepines, Ur Negative Normal [facility] Comment on above: Performed By: #### K 3, MG3 #### [facility] [address] [place] [address] Barbiturates, Ur Positive Normal [facility] Comment on above: Performed By: #### K 3, MG3 #### [facility] [address] [place] [address] Oxycodone/Oxymorphine ,Ur Negative Normal [facility] Comment on above: Performed By: #### K 3, MG3 #### [facility] [address] [place] [address] EKG 12 Lead if not already d one by SquadOrdered By: Arpit Buchanan on 02-16-2021 [facility] Test Date: 2021-02-15 Pat Name: JAZMIN ALEX Department: 01 Room: 254 Gender: F [place]: : 1950 Requested By: ARPIT BUCHANAN Order Number: [id number] Reading MD: Eliecer Echevarria Measurements Intervals [place] Rate: 107 P: 62 ID: 128 QRS: -3 QRSD: 94 T: 48 QT: 340 QTc: 454 Interpretive Statements SINUS TACHYCARDIA Otherwise Normal ECG Electronically Signed On 02-16-2021 13:52:22 EDT by Eliecer Echevarria [facility] Work Phone: [place], [place] Incoming Cardiology Results From [facility] - 02/16/2021 1:53 PM EDT [facility] Test Date: 2021-02-15 Pat Name: JAZMIN ALEX Department: 01 Room: 254 Gender: F [place]: : 1950 Requested By: ARPIT BUCHANAN Order Number: [id number] Reading MD: Eliecer Echevarria Measurements Intervals [place] Rate: 107 P: 62 ID: 128 QRS: -3 QRSD: 94 T: 48 QT: 340 QTc: 454 Interpretive Statements SINUS TACHYCARDIA Otherwise Normal ECG Electronically Signed On 02-16-2021 13:52:22 EDT by Eliecer Echevarria [facility] Work Phone: [phone] Hemoglobin A1Con 02-16-2021 Glucose [Mass/Vol] 100 mg/dL Normal [facility] Comment on above: Performed By: #### B MP3, CK3, TROPN, LFT3, HEMDF, NH33, ETOH4 #### [facility] [address] [place] [address] HbA1c (Bld) [Mass fraction] 5.1 % Normal [facility] Comment on above: Result Comment: Norm al less than 5.7% Prediabetes 5.7% to 6.4% Diabetes 6.5% or higher --HgbA1C levels may not be accurate in patients who have renal disease, received recent blood transfusions, are anemic, or who have dyshemoglobinemia. Performed By: #### B MP3, CK3, TROPN, LFT3, HEMDF, NH33, ETOH4 #### [facility] [employer] [facility] [address] [place] [address] Hemoglobin [id number] By: Tierra Castillo on 02-16-2021 HbA1c (Bld) [Mass fraction] 5.1 % [facility] Work Phone: Comment on above: Normal less than 5.7 % Prediabetes 5.7% to 6.4% Diabetes 6.5% or higher --HgbA1C levels may not be accurate in patients who have renal disease, received recent blood transfusions, are anemic, or who have dyshemoglobinemia. Magnesium [Mass/Vol] 100 mg/dL [facility] Work Phone: Test Performed by [facility] [place], [address] [place], [place] [address] [facility] Work Phone: Hemogramon 02-16-2021 Erythrocyte distribution width (RBC) [Ratio] 15.0 % High 11.5-14.5 [facility] Comment on above: Performed By: #### B MP3, CK3, TROPN, LFT3, HEMDF, NH33, ETOH4 #### [facility] [employer] [facility] [address] [place] [address] Hematocrit (Bld) [Volume fraction] 37.8 % Normal 35.0-47.0 [facility] Comment on above: Performed By: #### B MP3, CK3, TROPN, LFT3, HEMDF, NH33, ETOH4 #### [facility] [address] [place] [address] Hemoglobin (Bld) [Mass/Vol] 13.1 g/dL Normal 11.7-16.0 [facility] Comment on above: Performed By: #### B MP3, CK3, TROPN, LFT3, HEMDF, NH33, ETOH4 #### [facility] [address] [place] [address] MCH (RBC) [Entitic mass] 33.4 pg Normal 26.0-34.0 [facility] Comment on above: Performed By: #### B MP3, CK3, TROPN, LFT3, HEMDF, NH33, ETOH4 #### [facility] [address] [place] [address] MCHC 34.6 % Normal 32.0-36.0 [facility] Comment on above: Performed By: #### B MP3, CK3, TROPN, LFT3, HEMDF, NH33, ETOH4 #### [facility] [address] [place] [address] MCV (RBC) [Entitic vol] 96.6 fL Normal 79.0-98.0 [facility] Comment on above: Performed By: #### B MP3, CK3, TROPN, LFT3, HEMDF, NH33, ETOH4 #### [facility] [address] [place] [address] Platelet mean volume (Bld) [Entitic vol] 9.5 fL Normal 7.4-10.4 [facility] Comment on above: Performed By: #### B MP3, CK3, TROPN, LFT3, HEMDF, NH33, ETOH4 #### [facility] [address] [place] [address] Platelets (Bld) [#/Vol] 123 10*3/uL Low 140-440 [facility] Comment on above: Performed By: #### B MP3, CK3, TROPN, LFT3, HEMDF, NH33, ETOH4 #### [facility] [address] [place] [address] RBC (Bld) [#/Vol] 3.91 10*6/uL Normal 3.80-5.20 [facility] Comment on above: Performed By: #### B MP3, CK3, TROPN, LFT3, HEMDF, NH33, ETOH4 #### [facility] [address] [place] [address] WBC (Bld) [#/Vol] 4.1 10*3/uL Normal 3.6-10.7 [facility] Comment on above: Performed By: #### B MP3, CK3, TROPN, LFT3, HEMDF, NH33, ETOH4 #### [facility] [address] [place] [address] Lipid Panelon 02-16-2021 Chol/HDL 3 Normal [facility] Comment on above: Result Comment: Ref Range: < 3 Low Risk for CHD 3-6 Mod Risk for CHD > 6 High Risk for CHD Performed By: #### K 3, MG3 #### [facility] [address] [place] [address] Cholesterol in HDL [Mass/Vol] 64 mg/dL High 40-60 [facility] Comment on above: Performed By: #### K 3, MG3 #### [facility] [address] [place] [address] Low Density Lipoprotein 128 mg/dL Abnormal <100 [facility] Comment on above: Performed By: #### K 3, MG3 #### [facility] [address] [place] [address] Triglyceride [Mass/Vol] 136 mg/dL Normal <150 [facility] Comment on above: Performed By: #### K 3, MG3 #### [facility] [address] [place] [address] Cholesterol [Mass/Vol] 219 mg/dL Abnormal < 200 [facility] Comment on above: Performed By: #### K 3, MG3 #### [facility] [address] [place] [address] Lipid PanelOrdered By: Sarai Sorensen on 02-16-2021 Cholesterol [Mass/Vol] 219 mg/dL Abnormal <200 [facility] Work Phone: [phone] Cholesterol in HDL [Mass/Vol] 64 mg/dL High 40 - 60 mg/dL [facility] Work Phone: [phone] Cholesterol in LDL [Mass/Vol] 128 mg/dL Abnormal <100 [facility] Work Phone: [phone] Cholesterol.total/Cho lesterol in HDL [Mass ratio] 3 {ratio} [facility] Work Phone: [phone] Comment on above: Ref Range: < 3 Low Risk for CHD 3-6 Mod Risk for CHD > 6 High Risk for CHD Triglyceride [Mass/Vol] 136 mg/dL <150 [facility] Work Phone: [phone] Panel InformationOrdered By: Frankie Sorensen on 02-16-2021 Interpretation and review of laboratory results Abnormal [facility] Work Phone: [phone] Test Performed by [facility], [address] [place] [address] [facility] Work Phone: [phone] UrinalysisOrdered By: Edith Castillo on 02-16-2021 Appearance (U) Clear Clear NA [facility] Work Phone: [phone] Comment on above: . Bilirubin Urine Negative Negative mg/dL [facility] Work Phone: [phone] Comment on above: . Color (U) Light-Yellow Lt. Yellow NA [facility] Work Phone: [phone] Comment on above: . Glucose, Ur Normal Normal (<70) mg/dL [facility] Work Phone: [phone] Comment on above: . Interpretation and review of laboratory results Abnormal [facility] Work Phone: [phone] Ketones Ql (U) 80 mg/dL Abnormal Negative [facility] Work Phone: [phone] Comment on above: . LEUKOCYTES, UA Negative Negative Jennifer/uL [facility] Work Phone: [phone] Comment on above: . Nitrite, Urine Negative Negative NA [facility] Work Phone: [phone] Comment on above: . Occult Blood,Urine Negative Negative mg/dL [facility] Work Phone: [phone] Comment on above: . pH (U) 6.5 [pH] [facility] Work Phone: [phone] Comment on above: . Specific [place], Urine 1.020 [facility] Work Phone: [phone] Comment on above: . Total Protein, Urine Negative Negative mg/dL [facility] Work Phone: [phone] Comment on above: . Urobilinogen, Urine 2 mg/dL Abnormal Normal (0-1) [facility] Work Phone: [phone] Comment on above: . Test Performed by [facility], [address] [place], [place] [address] [facility] Work Phone: [phone] Urine Drug ScreenOrdered By: Rafael Castillo on 02-16-2021 Amphetamines, urine Negative [facility] Work Phone: [phone] Barbiturates, Ur Positive [facility] Work Phone: 1 Benzodiazepine Ur Qual Negative [facility] Work Phone: 1 Cocaine Metabolites, Ur Negative [facility] Work Phone: 1 Methadone, Urine Negative [facility] Work Phone: 1 Opiates, Urine Negative [facility] Work Phone: 1 Oxycodone Screen, Ur Negative [facility] Work Phone: 1 PCP, Urine Negative [facility] Work Phone: [phone] Comment on above: The [...] confirmation under separate order. Test Performed by [facility], [address] [place], [place], [place] [address] [place], [place] [address]A Work Phone: [phone] APTTon 02-15-2021 aPTT Coag (Bld) [Time] 21.0 s Normal 20.0-30.5 [facility] Comment on above: Result Comment: NOTE : The therapeutic time for Heparin anticoagulation, based on Xa activity inhibition, is an APTT of 46-80 seconds. Performed By: #### K 3, MG3 #### [facility] [address] [place] [address] APTTOrdered By: Arpit de la rosa on 02-15-2021 aPTT Coag (Bld) [Time] 21 s 20.0 - 30.5 s [employer] [facility] Work Phone: [phone] Comment on above: NOTE: The therapeuti c time for Heparin anticoagulation, based on Xa activity inhibition, is an APTT of 46-80 seconds. Add On Lab TestOrdered By: Ruben Buchanan on 02-15-2021 Add On Rejected [employer] [facility] Work Phone: [phone] Comment on above: NO URINE IN LAB Test Performed by [facility], [address] [place], [place] [address] [employer] Work Phone: [phone] Add on test from HISon 02-15 Add on test from HIS Rejected Normal [employer] [place] Comment on above: Result Comment: NO U RINE IN LAB Performed By: #### B MP3, CK3, TROPN, LFT3, HEMDF, NH33, ETOH4 #### [facility] [address] [place] [address] CBCOrdered By: Arpit Buchanan on 02-15-2021 Hematocrit (Bld) [Volume fraction] 37.4 % 35.0 - 47.0 % [employer] [facility] Work Phone: [phone] Hemoglobin.gastrointe stinal spec 1 Ql (Stl) 12.9 g/dL 11.7 - 16.0 g/dL [employer] [facility] Work Phone: [phone] MCH (RBC) [Entitic mass] 33.5 pg 26.0 - 34.0 pg [employer] [facility] Work Phone: [phone] MCHC (RBC) [Mass/Vol] 34.4 % 32.0 - 36.0 % [facility] Work Phone: [phone] MCV (RBC) [Entitic vol] 97.4 fL 79.0 - 98.0 fL [employer] Work Phone: [phone] Platelet distribution width (Bld) [Ratio] 14.1 % 11.5 - 14.5 % [employer] [facility] Work Phone: [phone] Platelet mean volume (Bld) [Entitic vol] 7.9 fL 7.4 - 10.4 fL [employer] [facility] Work Phone: [phone] Platelets (Bld) [#/Vol] 179 10*3/uL 140 - 440 10*3/uL [employer] [facility] Work Phone: [phone] RBC (Bld) [#/Vol] 3.84 10*6/uL 3.80 - 5.2 0 10*6/uL [employer] [facility] Work Phone: [phone] WBC (Bld) [#/Vol] 9.5 10*3/uL 3.6 - 10.7 10*3/uL [employer] [facility] Work Phone: [phone] Test Performed by [facility], [address] [place] [address] [employer] [facility] Work Phone: [phone] CT HEAD WO CONTRASTOrdered B y: Arpit Buchanan on 02-15-2021 Patient Name: JAZMIN JOHNSON Computed Tomography ACCESSION EXAM DATE/TIME PROCEDURE ORDERING PROVIDER [id number] 02/15/2021 12:[address] Head or Brain w/o MD ROXY, ARPIT Watters Contrast CPT code 30920 Reason For Exam (CT Head or Brain [...] Phone: [place], [facility] Incoming Rad[facility] Results From [facility] - 02/15/2021 12:56 PM EDT Patient Name: JAZMIN JOHNSON Computed Tomography ACCESSION EXAM DATE/TIME PROCEDURE ORDERING PROVIDER [id number] 02/15/2021 12:[address] Head or Brain w/o MD ROXY, ARPIT D Contrast CPT code 55682 Reason For Exam (CT Head or Brain [...] Brain w/o Contrast [facility]: [id number] Tomography ACCESSION EXAM DATE/TIME PROCEDURE ORDERING PROVIDER [id number] 02/15/2021 12:[address] Head or Brain w/o MD ROXY, ARPIT D Contrast CPT code 63668 Reason For Exam (CT Head or Brain [...] HARLAN Transcribed Date and Time: 02/15/2021 12:56 Normal [facility] CTA Head Neck W WO ContrastO rdered By: Arpit Buchanan on 02-15-2021 Patient Name: JAZMIN JOHNSON [facility]#: [id number] Computed Tomography ACCESSION EXAM DATE/TIME PROCEDURE ORDERING PROVIDER [id number] 02/15/2021 12:34 EDT CTA Head/Neck w/ + w/o MD BUCHANA[place] MARK D contrast CPT code 64057 [id number] [id number] Reason For Exam (CTA Head/Neck w/ [...] set was concurrently post processed on the [employer] workstation by ca with reconstructed 3-D shaded surface shaded MPR [...] data set was post processed on the EVOFEM workstation with 2-D maximum intensity projection (MIP) [...] Phone: [place] Incoming Radiology Results From [facility] - 02/15/2021 1:28 PM EDT Patient Name: JAZMIN JOHNSON [facility]#: [id number] Computed Tomography ACCESSION EXAM DATE/TIME PROCEDURE ORDERING PROVIDER [id number] 02/15/2021 12:34 EDT CTA Head/Neck w/ + w/o MD ROXY, ARPIT D contrast CPT code 93228 93358 Q9967 Reason For Exam (CTA Head/Neck w/ [...] set was concurrently post processed on the Saadia workstation by ca with reconstructed 3-D shaded surface shaded MPR [...] data set was post processed on the Sadaia workstation with 2-D maximum intensity projection (MIP) [...] Time: 02/15/2021 1:27 pm Signed by: MD CAITLYN, JEROME Transcribed Date and Time: 02/15/2021 1:28 [facility] Work Phone: CTA Head/Neck w/ + w/o contr marilynn 02-15-2021 CTA Head/Neck w/ + w/o contrast Patient Name: JAZMIN JOHNSON Computed Tomography ACCESSION EXAM DATE/TIME PROCEDURE ORDERING PROVIDER [id number] 02/15/2021 12:34 EDT CTA Head/Neck w/ + w/o MD ROXY, ARPIT D contrast CPT code 27789 23627 Q9967 Reason For Exam (CTA Head/Neck w/ [...] set was concurrently post processed on the [employer] workstation by ca with reconstructed 3-D shaded surface shaded MPR [...] data set was post processed on the [employer]ia workstation with 2-D maximum intensity projection (MIP) [...] Transcribed Date and Time: 02/15/2021 1:28 Normal [facility] ED Provider Noteon ED Provider Note Emergency Department Encounter [facility] ED Patient: Jazmin Johnson : 1950 Date of Evaluation: 02/15/2021 ED Provider: ARPIT BUCHANAN MD Chief Complaint Chief Complaint Patient presents with ? Altered Mental Status x one day [place] I wore a N95 mask, gloves, and goggles for the entirety of this encounter. Jazmin Johnson is a 70 y.o. female who presents to the emergency department for evaluation of acute altered mental status. The patient had been in snf and went to a court date. Patient [...] otherwise acutely negative except as in the [place]. Past History Past Medical History: Diagnosis Date [...] file Gets together: Not on file Attends synagogue service: Not on file Active member of [...] mouth daily VITAMIN D (ERGOCALCIFEROL) 1.25 MG (08231 UT) CAPS CAPSULE Take 1 capsule by [...] SILT throughou (more content not included)... Normal [facility] ETHANOLOrdered By: Arpit sheppard on 02-15-2021 Ethanol Lvl <0.010 0.000 - 0.010 g/dL [employer] Work Phone: Comment on above: NOTE: This result is for medical treatment only. Analysis performed using non-forensic procedures. Test Performed by [facility], [address] [place], [place] [address] [employer] Work Phone: Ethanol Serum/Plasmaon 02-15 Ethanol-Serum/Plasma < 0.010 Normal 0.000-0.010 [facility] Comment on above: Result Comment: NOTE : This result is for medical treatment only. Analysis performed using non-forensic procedures. Performed By: #### B MP3, CK3, TROPN, LFT3, HEMDF, NH33, ETOH4 #### [facility] [address] [place] [address] Glucose,Bedsideon 02-15-2021 Glucose [Mass/Vol] 77 mg/dL Normal 70-100 [facility] Comment on above: Result Comment: Test performed by glucose meter. Results may be 10%-15% lower than serum/plasma values. (CLIA ID [id number]) Performed By: #### K 3, MG3 #### [facility] [address] [place] [address] HCG Qualitative, SerumOrdere d By: Arpit Buchanan on 02-15-2021 hCG Qual Negative m[IU]/mL [facility] Work Phone: Comment on above: Reference Range: NEG ATIVE Effective 12/25/2019, the reference interval for the qualitative test has been updated. This test detects hCG at concentrations of 10 mIU/L or greater in serum. Test Performed by [facility], [address] [place], [place] [id number] [place] [address] Work Phone: Hemogramon 02-15-2021 Erythrocyte distribution width (RBC) [Ratio] 14.1 % Normal 11.5-14.5 [facility] Comment on above: Performed By: #### A PTT, PT, QWAL, TROPN, HEMOG #### [facility] [address] [place] [address] Hematocrit (Bld) [Volume fraction] 37.4 % Normal 35.0-47.0 [facility] Comment on above: Performed By: #### A PTT, PT, QWAL, TROPN, HEMOG #### [facility] [address] [place] [address] Hemoglobin (Bld) [Mass/Vol] 12.9 g/dL Normal 11.7-16.0 [facility] Comment on above: Performed By: #### A PTT, PT, QWAL, TROPN, HEMOG #### [facility] [address] [place] [address] MCH (RBC) [Entitic mass] 33.5 pg Normal 26.0-34.0 [facility] Comment on above: Performed By: #### A PTT, PT, QWAL, TROPN, HEMOG #### [facility] [address] [place] [address] MCHC 34.4 % Normal 32.0-36.0 [facility] Comment on above: Performed By: #### A PTT, PT, QWAL, TROPN, HEMOG #### [facility] [address] [place] [address] MCV (RBC) [Entitic vol] 97.4 fL Normal 79.0-98.0 [facility] Comment on above: Performed By: #### A PTT, PT, QWAL, TROPN, HEMOG #### [facility] [address] [place] [address] Platelet mean volume (Bld) [Entitic vol] 7.9 fL Normal 7.4-10.4 [facility] Comment on above: Performed By: #### A PTT, PT, QWAL, TROPN, HEMOG #### [facility] [address] [place] [address] Platelets (Bld) [#/Vol] 179 10*3/uL Normal 140-440 [facility] Comment on above: Performed By: #### A PTT, PT, QWAL, TROPN, HEMOG #### [facility] [address] [place] [address] RBC (Bld) [#/Vol] 3.84 10*6/uL Normal 3.80-5.20 [facility] Comment on above: Performed By: #### A PTT, PT, QWAL, TROPN, HEMOG #### [facility] [address] [place] [address] WBC (Bld) [#/Vol] 9.5 10*3/uL Normal 3.6-10.7 [facility] Comment on above: Performed By: #### A PTT, PT, QWAL, TROPN, HEMOG #### [facility] [address] [place] [address] No Panel InformationOrdered By: Arpit Buchanan on 02-15-2021 Test Performed by [facility], [address] [place] [address] Work Phone: POCT GlucoseOrdered By: Unkn own Result on 02-15-2021 Glucose [Mass/Vol] 77 mg/dL 70 - 100 mg/dL [facility] Work Phone: Comment on above: Test performed by ucose meter. Results may be 10%-15% lower than serum/plasma values. (CLIA ID [id number]) Test Performed by [facility] [employer] [facility], [address] [place], [place] [id number] [place] [address] Work Phone: Prothrombin Timeon INR 1.0 Normal 0.9-1.1 [facility] Comment on above: Result Comment: Daniel mmended [...] Performed By: #### K 3, MG3 #### [facility] [address] [place] [address] PT Coag (PPP) [Time] 11.1 s Normal 9.0-12.0 [facility] [employer] [facility] Comment on above: Result Comment: . Performed By: #### K 3, MG3 #### [facility] [address] [place] [address] Protime-INROrdered By: Arpit Buchanan on 02-15-2021 INR Coag (Bld) [Relative time] 1.0 {INR} [facility] Work Phone: Comment on above: Recommended Anticoag [...] 11.1 s 9.0 - 12.0 s [facility] Work Phone: Comment on above: . TroponinOrdered By: Arpit goss on 02-15-2021 Troponin I.cardiac [Mass/Vol] ng/mL 0.000 - 0.034 ng/mL [facility] Work Phone: Comment on above: . Test Performed by [facility], [address] [place], [place] [address] [facility] Work Phone: Troponin Ion 02-15-2021 Troponin I.cardiac [Mass/Vol] ng/mL Normal 0.000-0.034 [facility] Comment on above: Result Comment: . Performed By: #### K 3, MG3 #### [facility] [address] [place] [address] hCG Qual Pregon 02-15-2021 hCG Qual Preg Negative Normal [facility] [employer] Comment on above: Result Comment: Refe rence Range: NEGATIVE Effective 12/25/2019, the reference interval for the qualitative test has been updated. This test detects hCG at concentrations of 10 mIU/L or greater in serum. Performed By: #### Constantin 3, MG3 #### [facility] [address] [place] [address] BASIC METABOLIC PANELon - Anion gap [Moles/Vol] 11 mmol/L Normal - [employer] Comment on above: Performed By: ###Boom Stewart CH8 #### [facility] [address] [place] [address], Calcium [Mass/Vol] 9.5 mg/dL Normal 8.4-10.4 [facility] [employer] Comment on above: Performed By: ###Boom Stewart CH8 #### [facility] [address] [place], [place], Chloride [Moles/Vol] 110 mmol/L Normal 97-111 [facility] Comment on above: Performed By: #### Ruben Stewart, CH8 #### [facility] [address] [place] [address], CO2 [Moles/Vol] 24 mmol/L Normal 21-30 [facility] Comment on above: Performed By: #### Ruben Stewart, CH8 #### [facility] [address] [place] [address], Creatinine [Mass/Vol] 0.65 mg/dL Normal 0.50-1.10 [facility] Comment on above: Performed By: #### Ruben Stewart, CH8 #### [facility] [address] [place] [address], ESTIMATED GFR (CKD-EPI) 91 mL/min/1.73sqm Normal >=60 [facility] Comment on above: Performed By: #### Ruben Stewart, EL8 #### [facility] [address] [place] [address], Glucose [Mass/Vol] 90 mg/dL Normal 80-[address] [facility] Comment on above: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 Performed By: #### EL CHO ####[facility] [id number] [place], MCV (RBC) [Entitic vol] 98 fL Normal 80-[address] [facility] Comment on above: Performed By: #### EL CHO ####[facility] [id number] [place], MONOCYTE DISTRIBUTION WIDTH Normal [facility] Comment on above: Performed By: ###EL BIGGS ####[facility] [id number] [place], Platelet mean volume (Bld) [Entitic vol] 8.1 fL Normal 7.5-11.[address] [facility] Comment on above: Performed By: ###EL BIGGS ####S PATHOLOGY [id number] [place], Platelets (Bld) [#/Vol] 263 10*3/uL Normal 150-[address] [facility] Comment on above: Performed By: ###EL BIGGS ####S PATHOLOGY [id number] [place], RBC (Bld) [#/Vol] 3.79 10*6/uL Low 4.00-5.[address] [facility] Comment on above: Performed By: #### EL CHO ####S PATHOLOGY [id number] [place], WBC (Bld) [#/Vol] 7.0 10*3/uL Normal 4.5-11.5 [facility] Comment on above: Performed By: ###EL BIGGS ####[facility] [id number] [place], Care Plan Noteon 01-26-2021 Electromechanical Inspector Authentication Interface Message Text Problem: Infection: Goal: [...] symptoms of infection Outcome: Progressing Normal [facility] MAGNESIUMon 01-26-2021 Magnesium [Mass/Vol] 1.8 mg/dL Normal 1.6-2.8 [facility] Comment on above: Performed By: #### C H8, MG ####[facility] [id number] [place], MANUAL DIFF AND MORPHon 01-12 BANDS % BY MANUAL COUNT 2 % Normal <=10 [facility] Comment on above: Performed By: #### EL CHO ####[facility] [id number] [place], BANDS ABS BY MANUAL COUNT 0.14 K/uL High <0.01 [facility] Comment on above: Performed By: #### EL CHO ####[facility] [id number] [place], BASOPHILS % BY MANUAL COUNT 1.0 % Normal <=1.9 [facility] Comment on above: Performed By: #### EL CHO ####[facility] [id number] [place], BASOPHILS ABS BY MANUAL COUNT 0.07 K/uL Normal 0.00-0.[address] [facility] Comment on above: Performed By: #### EL CHO ####[facility] [id number] [place], CELLS COUNTED TOTAL # IN BLOOD [address] [facility] Comment on above: Performed By: #### EL CHO ####[facility] [id number] [place], EOSINOPHILS % BY MANUAL COUNT 3.0 % Normal 0.1-4.[address] [facility] Comment on above: Performed By: #### EL CHO ####S PATHOLOGY [id number] [place], EOSINOPHILS ABS BY MANUAL COUNT 0.21 K/uL Normal 0.00-0.[address] [facility] Comment on above: Performed By: #### EL CHO ####[facility] [id number] [place], LYMPHOCYTES % BY MANUAL COUNT 20.0 % Low 24.0-44.[address] [facility] Comment on above: Performed By: #### EL CHO ####[facility] [id number] [place], LYMPHOCYTES ABS BY MANUAL COUNT 1.40 K/uL Normal 1.00-4.[address] [facility] Comment on above: Performed By: #### EL CHO ####S PATHOLOGY [id number] [place], MONOCYTES % BY MANUAL COUNT 14.0 % High 2.0-11.[address] [facility] Comment on above: Performed By: #### EL CHO ####[facility] [id number] [place], MONOCYTES ABS BY MANUAL COUNT 0.98 K/uL Normal 0.20-1.00 [facility] Comment on above: Performed By: #### EL CHO ####S PATHOLOGY [id number] [place], NEUTROPHILS % BY MANUAL COUNT 60.0 % Normal 31.0-76.0 [facility] Comment on above: Performed By: #### EL CHO ####S PATHOLOGY [id number] [place], NEUTROPHILS ABS BY MANUAL COUNT 4.20 K/uL Normal 1.50-8.00 [facility] Comment on above: Performed By: #### EL CHO ####[facility] [id number] [place], OVALOCYTES Few Normal [facility] Comment on above: Performed By: #### EL CHO ####S PATHOLOGY [id number] [place], Progress Noteson 01-26-2021 Electromechanical Inspector Authentication Interface Message Text 1630 Dr. Guevara notified patient remains agitated and disoriented to place. Patient attempting to remove medical devices. Patient not redirectable. Dr. Guevara to order additional dose of ativan. 1704 2mg ativan administered as ordered 1730 Patient remains agitated. Patient attempting to remove restraints in order to go to [facility] Dr. Clarke notified and patient bedside. Awaiting orders for haldol. EKG to be obtained once patient becomes less agitated. 1749 Haldol administered as ordered 7:06 PM EKG performed as ordered. Patient resting comfortably at this time. Normal [facility] Electromechanical Inspector Authentication Interface Message Text Patient remains confused [...] time. Report given to on coming RN, CHANTEL reviewed. And will continue to assess. Normal [facility] [employer] Authentication Interface Message Text CAREN SDU Note: SW received return phone call from pt's daughter, Johnson [phone]. confirmed information provided by her aunts on 01/26. also reported pt has had 6 hospitalizations since October. reported she is also concerned regarding her mom's mental status and her ability to care for herself. Pt's daughter reported State of Expert Evaluation was completed and Guardianship was filed for via a Supervising Producer they identified to be pt's guardian. reported case was dropped when pt went to rehab. Per it was dropped due to the teller supervisor that was going to pt's guardian stating [...] . CAREN will continue to follow. Diane Abebe [facility] Care Coordination Department Normal [facility] [employer] Authentication Interface Message Text Stepdown Faculty Note: [...] mucous membranes). 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 Dr. Von Villa Normal [facility] Transfer Noteon 01-26-2021 Electromechanical Inspector Authentication Interface Message Text TRANSFER NOTE Transfer [...] per derm Abi Hollins MD Normal [facility] BASIC METABOLIC PANELon 01-12 Anion gap [Moles/Vol] 12 mmol/L Normal 5-[address] [facility] Comment on above: Performed By: #### Ruben Stewart, CH8 #### S PATHOLOGY LABORATORY [address] [place] [address], Calcium [Mass/Vol] 8.9 mg/dL Normal 8.4-10.[address] [facility] Comment on above: Performed By: #### Ruben Stewart, CH8 #### S PATHOLOGY LABORATORY [address] [place] [address], Chloride [Moles/Vol] 104 mmol/L Normal 97-[address] [facility] Comment on above: Performed By: #### Ruben Stewart, CH8 #### S PATH[facility] LABORATORY [address] [place] [address], CO2 [Moles/Vol] 25 mmol/L Normal 21-[address] [facility] Comment on above: Performed By: #### Ruben Stewart, CH8 #### S PATHOLOGY LABORATORY [address] [place] [address], Creatinine [Mass/Vol] 0.49 mg/dL Low 0.50-1.[address] [facility] Comment on above: Performed By: #### Ruben Stewart, CH8 #### S PATHOLOGY LABORATORY [address] [place] [address], ESTIMATED GFR (CKD-EPI) 100 mL/min/1.73sqm Normal >=[address] [facility] Comment on above: Performed By: #### Ruben Stewart, CH8 #### S PATH[facility] LABORATORY [address] [place] [address], Glucose [Mass/Vol] 99 mg/dL Normal 80-[address] [facility] Comment on above: Performed By: #### Ruben Stewart, CH8 #### [facility] [address] [place], [place], Potassium [Moles/Vol] 4.5 mmol/L Normal 3.3-5.3 [facility] Comment on above: Performed By: #### Ruben Stewart, CH8 #### S PATHOLOGY LABORATORY [address] [place], [place], Sodium [Moles/Vol] 136 mmol/L Normal 135-148 [facility] Comment on above: Performed By: #### Ruben Stewart, CH8 #### [facility] [address] [place], [place], Urea nitrogen [Mass/Vol] 4 mg/dL Low 8-22 [facility] Comment on above: Performed By: #### Ruben Stewart, CH8 #### [facility] [address] [place], [place], Care Plan Noteon 01-25-2021 Electromechanical Inspector Authentication Interface Message Text Problem: Infection: Goal: [...] Outcome: Progressing Note: Planning for transfer to [facility]. Education ongoing. Normal [facility] MAGNESIUMon 01-25-2021 Magnesium [Mass/Vol] 1.5 mg/dL Low 1.6-2.8 [facility] Comment on above: Performed By: #### Ruben Stewart, CH8 #### [facility] [address] [place], [address] Progress Noteson 01-25-2021 Electromechanical Inspector Authentication Interface Message Text Dr. Villa notified of heart rate, Patient sinus tachycardia on monitor with increase heart rate with activity. Order for metoprolol received. Normal [facility] Electromechanical Inspector Authentication Interface Message Text ID Attending INTERVAL [...] Hct MCV RDW Plt PT aPTT INR 01/24/21 0209 6.9 3.50 11.7 34.2 98 13.5 193 01/23/21 0247 10.7 3.76 12.7 36.8 98 13.6 203 WBC/Diff Neutro% Segs% Bands% Lymphs% Monos% Eos% Basos% 01/23/21246 81.2 9.1 8.5 0.8 0.4 Basic Metabolic Panel Na K Cl CO2 Gap Glu BUN Cr Ca Mg PO4 01/25/21 1107 1.5 01/25/21 110 136 4.5 104 25 12 99 4 0.49 8.9 01/24/219 1.7 01/24/21208 137 4.1 105 23 13 [...] with questions Wily Odom M.D. Normal [facility] Electromechanical Inspector Authentication Interface Message Text Stepdown Faculty Note: [...] mucous membranes). 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 Von Villa Normal [facility] Electromechanical Inspector Authentication Interface Message Text CAREN SDU Note: CAREN aware pt remains confused. CAREN placed call to pt's contact, Sister: Suni [place] [phone], to obtain more information regarding pt and assess for DC needs. CAREN LVM and requested call back. Diane Abebe [facility] [place] COLOR PASTE MIXING SUPERVISOR Pager: [phone] 10:55 AM Addendum: CAREN spoke with Suni [...] of substitute decision-makers in the state of [place] is (in order) court-appointed legal guardian, health-care power of commonwealth attorney, spouse, majority of adult children, parents, majority of adult siblings, and nearest relative. Per Suni, pt has 3 adult children whom she is not close with due to substance use. She has 2 daughters and a son. Per Suni pt stated on Saturday she was agreeable to go to treatment. CAREN reported would address as well when able with pt. Suni agreed to provide pt's children's contact information during call this afternoon. CAREN will follow. Diane Abebe [facility] [place] COLOR PASTE MIXING SUPERVISOR Pager: [phone] 1:51 PM Addendum: CAREN spoke with pt's [...] Per Nadia pt most recently went to [facility] for Substance Abuse treatment. Pt wasn't sober for more than a few hours after leaving per pt's sister. Pt's sister reported moving forward team to contact pt's children. Nadia and Suni reported pt's daughter is aware pt is here and willing to assist with planning, [place]: [phone]. Pt's sisters also provided information for other children: Michelle Cecilia: [phone] Rk Johnson: [phone] CAREN [facility] for pt's daughter , requesting call back to address DC planning. Diane Abebe [facility] [place] COLOR PASTE MIXING SUPERVISOR Pager: [phone] Normal [facility] AEROBIC WOUND CULTUREon 01-12 AEROBIC WOUND CULTURE C PYOG: Normal Skin jorge isolated GRAM STAIN: 1+ Polymorphonuclear Leukocytes 1+ Squamous Epithelial Cells 1+ Gram Positive Cocci Normal [facility] Comment on above: Performed By: #### WILFRIDO Smith #### [facility] [address] [place] [address], [id number] BASIC METABOLIC PANELon 01-12 Anion gap [Moles/Vol] 13 mmol/L Normal 5-13 [facility] Comment on above: Performed By: #### M G, CH8 #### [facility] [address] [place] [address], Calcium [Mass/Vol] 8.5 mg/dL Normal 8.4-10.4 [facility] Comment on above: Performed By: #### Ruben Stewart, CH8 #### [facility] [address] [place] [address], Chloride [Moles/Vol] 105 mmol/L Normal 97-111 [facility] Comment on above: Performed By: #### Ruben Stewart, CH8 #### [facility] [address] [place] [address], CO2 [Moles/Vol] 23 mmol/L Normal 21-30 [facility] Comment on above: Performed By: #### Ruben Stewart, CH8 #### [facility] [address] [place] [address], Creatinine [Mass/Vol] 0.49 mg/dL Low 0.50-1.10 [facility] Comment on above: Performed By: ###Boom Stewart, CH8 #### [facility] [address] [place] [address], ESTIMATED GFR (CKD-EPI) 100 mL/min/1.73sqm Normal >=60 [facility] Comment on above: Performed By: #### Ruben Stewart, CH8 #### [facility] [address] [place] [address], Glucose [Mass/Vol] 79 mg/dL Low 80-116 [facility] Comment on above: Performed By: #### Ruben Stewart, CH8 #### [facility] [address] [place] [address], Potassium [Moles/Vol] 4.1 mmol/L Normal 3.3-5.3 [facility] Comment on above: Performed By: #### Ruben Stewart, CH8 #### [facility] [address] [place] [address], Sodium [Moles/Vol] 137 mmol/L Normal 135-148 [facility] Comment on above: Performed By: #### Ruben Stewart, CH8 #### [facility] [address] [place] [address], Urea nitrogen [Mass/Vol] 6 mg/dL Low 8-22 [facility] Comment on above: Performed By: #### Ruben G, CH8 #### [facility] [address] [place] [address], COMPLETE BLOOD COUNTon 01-24 Erythrocyte distribution width (RBC) [Ratio] 13.5 % Normal 11.5-14.5 [facility] Comment on above: Performed By: #### Tarsha H8, MG #### [facility] [address] [place] [address], Hematocrit (Bld) [Volume fraction] 34.2 % Low 36.0-46.0 [facility] Comment on above: Performed By: #### Tarsha H8, MG #### [facility] [address] [place] [address], Hemoglobin (Bld) [Mass/Vol] 11.7 g/dL Low 12.0-15.0 [facility] Comment on above: Performed By: #### Tarsha Abernathy, MG #### [facility] [address] [place] [address], MCH (RBC) [Entitic mass] 33.6 pg Normal 26.0-34.0 [facility] Comment on above: Performed By: #### Tarsha H8, MG #### [facility] [address] [place] [address], MCHC (RBC) [Mass/Vol] 34.3 g/dL Normal 32.0-35.9 [facility] Comment on above: Performed By: #### Tarsha H8, MG #### [facility] [address] [place] [address], MCV (RBC) [Entitic vol] 98 fL Normal 80-100 [facility] Comment on above: Performed By: #### Tarsha H8, MG #### [facility] [address] [place] [address], Platelet mean volume (Bld) [Entitic vol] 8.1 fL Normal 7.5-11.2 [facility] Comment on above: Performed By: #### C H8, MG #### [facility] [address] [place], [place], Platelets (Bld) [#/Vol] 193 10*3/uL Normal 150-400 [facility] Comment on above: Performed By: #### C H8, MG #### [facility] [address] [place], [place], RBC (Bld) [#/Vol] 3.50 10*6/uL Low 4.00-5.20 [facility] Comment on above: Performed By: #### C H8, MG #### [facility] [address] [place], [place], WBC (Bld) [#/Vol] 6.9 10*3/uL Normal 4.5-11.5 [facility] Comment on above: Performed By: #### C H8, MG #### [facility] [address] [place], [place], Care Plan Noteon 01-24-2021 Electromechanical Inspector Authentication Interface Message Text Problem: Infection: Goal: [...] as ordered. Descalating as able. Normal [facility] Consultson 01-24-2021 Electromechanical Inspector Authentication Interface Message Text Attestation signed by [...] and Emergency General Surgery Department of Surgery [facility] product architect [facility] [employer] [facility] History and Physical Examination Patient: Jazmin Johnson Age/Sex: 70 year old, female Admit Date: 01/23/2021 Room: [place] [address] Code Status: Full Code Primary Care Physician: No primary care provider on file. HPI: Jazmin Johnson is a 70 year [...] about 3 days prior to admission to [facility]. She did not have any burn injury. [...] and Family: Not on file * Attends Jehovah'S Witness Services: Not on file * Active Member [...] morning * vitamin D2 (ERGOCALCIFEROL) 1.25 MG (63512 UT) capsule Take 50,000 Units by mouth daily. * QUEtiapine (SEROQUEL) 50 MG tablet Take 50 mg by mouth at bedtime. * valACYclovir (VALTREX) 500 MG tablet Take 500 mg by mouth. * atorvastatin (LIPITOR) 40 (more content not included)... Normal [facility] HEPATIC FUNCTION PANELon Albumin [Mass/Vol] 2.5 g/dL Low 3.4-5.1 [facility] Comment on above: Performed By: #### M Pat CH8 #### [facility] [address] [place] [address], ALK 54 IU/L Normal 40-200 [facility] Comment on above: Performed By: #### Ruben Stewart, CH8 #### [facility] [address] [place] [address], ALT [Catalytic activity/Vol] 12 U/L Normal 7-40 [facility] Comment on above: Performed By: #### Ruben Stewart, CH8 #### [facility] [address] [place] [address], AST [Catalytic activity/Vol] 19 U/L Normal 7-40 [facility] Comment on above: Performed By: #### Ruben Stewart, CH8 #### [facility] [address] [place] [address], Bilirubin [Mass/Vol] 0.6 mg/dL Normal 0.1-1.5 [facility] Comment on above: Performed By: #### Ruben Stewart, EL8 #### [facility] [address] [place] [address], Bilirubin.direct [Mass/Vol] 0.10 mg/dL Normal 0.10-0.30 [facility] Comment on above: Performed By: #### Ruben Stewart, CH8 #### [facility] [address] [place] [address], Protein [Mass/Vol] 4.7 g/dL Low 5.7-8.1 [facility] Comment on above: Performed By: #### Ruben Stewart, CH8 #### [facility] [address] [place] [address], MAGNESIUMon 01-24-2021 Magnesium [Mass/Vol] 1.7 mg/dL Normal 1.6-2.8 [facility] Comment on above: Performed By: #### Ruben Stewart, CH8 #### [facility] [address] [place] [address], Progress Noteson 01-24-2021 Electromechanical Inspector Authentication Interface Message Text CAREN SDAlf Note: CAREN spoke with who reported pt is currently confused, concerns for ETOH w/d. Pt with hx of ETOH abuse. CAREN aware per chart review, pt recently completed ETOH inpt rehab and has since then been living in a hotel. Pt with +tox screen. SW will follow up with pt to address substance abuse as appropriate. Diane Andrae MSSA, COLOR PASTE MIXING SUPERVISOR Pager: [phone] Normal [facility] Electromechanical Inspector Authentication Interface Message Text ID Attending INTERVAL [...] await pcr Wily Odom M.D. Normal [facility] Electromechanical Inspector Authentication Interface Message Text Stepdown Faculty Note: [...] mucous membranes). 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 Von Villa Normal [facility] Electromechanical Inspector Authentication Interface Message Text Consult by Wound Ostomy Continence (WOC) Nursing Consult received and chart review completed. Patient is being followed/managed by the Dermatology Team at this time. Will cancel current WOC consult. Please re-consult if there is an identified need for Wound, Ostomy, Continence Nursing intervention. Flory Reza BSN, RN, CWON Normal [facility] VARICELLA ZOSTER PCRon 01-24 VZV DNA Not detected Normal Not Detected [facility] Comment on above: Order Comment: This assay was performed by a real-time polymerase chain reaction (PCR) method on the [employer] system ([employer]. [place], [place]) using thermal melt (Tm)analysis.This test was developed, and its performance characteristics determined, by the Molecular Pathology Laboratory at [facility]. It has not been cleared, or approved, [...] testing. Performed By: #### V ZV DNA ####S PATHOLOGY [id number] [place], [place], BASIC METABOLIC PANELon 01-12 Anion gap [Moles/Vol] 13 mmol/L Normal 5-13 [facility] Comment on above: Performed By: #### Tarsha H8, MG #### [facility] [address] [place] [address], Calcium [Mass/Vol] 8.9 mg/dL Normal 8.4-10.4 [facility] Comment on above: Performed By: #### Tarsha H8, MG #### [facility] [address] [place] [address], Chloride [Moles/Vol] 103 mmol/L Normal 97-111 [facility] Comment on above: Performed By: #### Tarsha H8, MG #### [facility] [address] [place] [address], CO2 [Moles/Vol] 26 mmol/L Normal 21-30 [facility] Comment on above: Performed By: #### Tarsha H8, MG #### [facility] [address] [place] [address], Creatinine [Mass/Vol] 0.62 mg/dL Normal 0.50-1.10 [facility] Comment on above: Performed By: #### C H8, MG #### [facility] [address] [place] [address], ESTIMATED GFR (CKD-EPI) 92 mL/min/1.73sqm Normal >=60 [facility] Comment on above: Performed By: #### Tarsha Abernathy, MG #### [facility] [address] [place] [address], Glucose [Mass/Vol] 87 mg/dL Normal 80-116 [facility] Comment on above: Performed By: #### Tarsha Abernathy, MG #### [facility] [address] [place] [address], Potassium [Moles/Vol] 3.2 mmol/L Low 3.3-5.[address] [facility] Comment on above: Performed By: #### Tarsha Abernathy, MG #### [facility] [address] [place] [address], Sodium [Moles/Vol] 139 mmol/L Normal 135-[address] [facility] Comment on above: Performed By: #### Tarsha Abernathy, MG #### [facility] [address] [place] [address], Urea nitrogen [Mass/Vol] 12 mg/dL Normal 8-[address] [facility] Comment on above: Performed By: #### Tarsha Abernathy, MG #### [facility] [address] [place] [address], BLOOD CULTUREon 01-23-2021 Bacteria identified Cx Nom (Bld) C BLOOD: No Growth Normal [facility] Comment on above: Performed By: #### Tarsha BLOOD ####[facility] [address] [place], [place] CBC WITH DIFFERENTIALon 01-12 Basophils (Bld) [#/Vol] 0.05 10*3/uL Normal 0.00-0.[address] [facility] Comment on above: Performed By: ###WILFRIDO Moore #### [facility] [address] [place] [address], Basophils/100 WBC (Bld) 0.4 % Normal <=1.[address] [facility] Comment on above: Performed By: ###WILFRIDO Moore #### [facility] [address] [place] [address], Eosinophils (Bld) [#/Vol] 0.09 10*3/uL Normal 0.00-0.70 [facility] Comment on above: Performed By: #### Ruben Stewart, CH8 #### [facility] [address] [place], [place], Eosinophils/100 WBC (Bld) 0.8 % Normal 0.1-4.0 [facility] Comment on above: Performed By: #### Ruben Stewart, CH8 #### [facility] [address] [place] [address], Erythrocyte distribution width (RBC) [Ratio] 13.6 % Normal 11.5-14.5 [facility] Comment on above: Performed By: #### Ruben Stewart, CH8 #### [facility] [address] [place] [address], Hematocrit (Bld) [Volume fraction] 36.8 % Normal 36.0-46.0 [facility] Comment on above: Performed By: #### Ruben Stewart, CH8 #### [facility] [address] [place] [address], Hemoglobin (Bld) [Mass/Vol] 12.7 g/dL Normal 12.0-15.0 [facility] Comment on above: Performed By: #### Ruben Stewart, CH8 #### [facility] [address] [place], [place], Lymphocytes (Bld) [#/Vol] 0.98 10*3/uL Low 1.00-4.80 [facility] Comment on above: Performed By: #### Ruben Stewart, CH8 #### [facility] [address] [place], [place], Lymphocytes/100 WBC (Bld) 9.1 % Low 24.0-44.0 [facility] Comment on above: Performed By: #### Ruben Stewart, CH8 #### [facility] [address] [place] [address], MCH (RBC) [Entitic mass] 33.7 pg Normal 26.0-34.0 [facility] Comment on above: Performed By: #### Ruben Stewart, CH8 #### [facility] [address] [place] [address], MCHC (RBC) [Mass/Vol] 34.5 g/dL Normal 32.0-35.9 [facility] Comment on above: Performed By: #### Ruben Stewart, CH8 #### [facility] [address] [place] [address], MCV (RBC) [Entitic vol] 98 fL Normal 80-100 [facility] Comment on above: Performed By: #### Ruben Stewart, CH8 #### [facility] [address] [place] [address], MONOCYTE DISTRIBUTION WIDTH Normal [facility] Comment on above: Performed By: #### Ruben Stewart, CH8 #### [facility] [address] [place] [address], Monocytes (Bld) [#/Vol] 0.90 10*3/uL Normal 0.20-1.[address] [facility] Comment on above: Performed By: #### Ruben Stewart, CH8 #### [facility] [address] [place] [address], Monocytes/100 WBC (Bld) 8.5 % Normal 2.0-11.0 [facility] Comment on above: Performed By: #### Ruben Stewart, CH8 #### [facility] [address] [place] [address], Neutrophils (Bld) [#/Vol] 8.65 10*3/uL High 1.50-8.00 [facility] Comment on above: Performed By: #### Ruben Stewart, CH8 #### [facility] [address] [place], [place], Neutrophils/100 WBC (Bld) 81.2 % High 31.0-76.0 [facility] Comment on above: Performed By: #### Ruben Stewart, CH8 #### [facility] [address] [place] [address], Platelet mean volume (Bld) [Entitic vol] 8.3 fL Normal 7.5-11.2 [facility] Comment on above: Performed By: #### Ruben G, CH8 #### [facility] [address] [place], [place], Platelets (Bld) [#/Vol] 203 10*3/uL Normal 150-400 [facility] Comment on above: Performed By: #### Ruben Pat, CH8 #### [facility] [address] [place], [place], RBC (Bld) [#/Vol] 3.76 10*6/uL Low 4.00-5.20 [facility] Comment on above: Performed By: #### M G, CH8 #### [facility] [address] [place], [place], WBC (Bld) [#/Vol] 10.7 10*3/uL Normal 4.5-11.5 [facility] Comment on above: Performed By: #### Ruben G, CH8 #### [facility] [address] [place], [place], Care Plan Noteon 01-23-2021 Electromechanical Inspector Authentication Interface Message Text Problem: Infection: Goal: [...] to assess need for restraints. Normal [facility] Consultson 01-23-2021 Electromechanical Inspector Authentication Interface Message Text DERMATOLOGY NEW CONSULT NOTE Jazmin Johnson, 70 year old female, Room: [place] [address] Date Admitted: 01/23/2021, LOS: 0 days Attending: Dr. Reilly Date of Service: 01/23/2021 Referred by: Tigre Marley No address on file Clinical Question: diagnostic evaluation of rash History of Present Illness Jazmin Johnson is a 70 year old female with a PMHx significant for hypothyroidism, HLD,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 England MD Platelets (Bld) [#/Vol] 195 10*3/uL Normal 138-453 [facility] Comment on above: Performed By: #### C DP, ALCB, BMPX #### [place] [address] [employer]: Wu England MD RBC (Bld) [#/Vol] 3.80 10*6/uL Low 3.95-5.11 [facility] Comment on above: Performed By: #### C DP, ALCB, BMPX #### [place] [address] [employer]: Wu England MD RBC morphology finding Nom (Bld) MACROCYTOSIS PRESENT Normal [facility] Comment on above: Performed By: #### C DP, ALCB, BMPX #### [place] [address] [employer]: Wu England MD WBC (Bld) [#/Vol] 6.9 10*3/uL Normal 3.5-11.3 [facility] Comment on above: Performed By: #### C DP, ALCB, BMPX #### [place] [address] [employer]: Wu England MD Auto Diff Performed NOT REPORTED Normal [facility] Comment on above: Performed By: #### C DP, ALCB, BMPX #### [place] [address] [employer]: Wu England MD Platelet Estimate NOT REPORTED Normal [facility] Comment on above: Performed By: #### C DP, ALCB, BMPX #### [address] [address] [employer]: Wu England MD WBC Morphology NOT REPORTED Normal [facility] Comment on above: Performed By: #### C DP, ALCB, BMPX #### [facility] [address] [place] [address] [employer]: Wu England MD COVID-19, Rapidon 01-14-2021 SARS-CoV-2, Rapid Not Detected Not Detected [facility] Phone: Comment on above: Rapid NAAT: The [...] management decisions. Fact sheet for Healthcare Providers: https://www.fda.gov/media/242650/download Fact sheet for Patients: https://www.fda.gov/media/019890/download Methodology: Isothermal Nucleic Acid Amplification Specimen Description .NASOPHARYNGEAL SWAB [facility] Phone: CT CERVICAL SPINE WO CONTRAS Ton [...] likely degenerative in etiology. 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 No acute traumati c injury involving the chest abdomen or pelvis 2. Enlarged, fibroid uterus. Largest fibroid measures 7.5 cm, with central low attenuation, consistent with necrosis 3. Indeterminate low-attenuation liver lesions, largest measuring 2.1 x 1.6 cm. Lesions could be further characterized with elective MR imaging. 4. Multiple old bilateral rib fractures [employer] Phone: EXAMINATION: CT OF T HE [...] formation is present within the left sacrum. [employer] Phone: [place], [place] Incoming Radiant Results From [employer] - 01/14/2021 1:02 AM EDT EXAMINATION: CT [...] imaging. 4. Multiple old bilateral rib fractures [employer] Phone: CT HEAD WO CONTRASTon 2020 [...] Kong Branch MD 01/14/21 Final result Normal [facility] [place], [place] Incoming Radiant Results From [employer] - 01/14/2021 9:54 AM EDT EXAMINATION: CT [...] fracture is again noted. 3. Microangiopathic change. [employer] Phone: EXAMINATION: CT OF T HE HEAD [...] TISSUES/SKULL: Right parietal fracture is again noted. [employer] Phone: 1. Acute bilateral subdural hematomas are unchanged in size in the interval. 2. Nondisplaced right parietal fracture is again noted. 3. Microangiopathic change. [employer] Phone: CT HEAD WO CONTRAST ADDENDUM: Outside [...] to a licensed caregiver. Interpreted by: Lisa Raymond MD Signed by: Lisa Raymond MD 01/13/21 Edited Result - FINAL Normal [facility] CT LUMBAR SPINE TRAUMA RECON STRUCTIONon [...] Austin Roca DO 01/14/21 Final result Normal [facility] EXAMINATION: CT OF T HE LUMBAR [...] TISSUES/RETROPERITONEU M: No paraspinal mass is seen. [employer] Phone: [place], [place] Incoming Radiant Results From [employer] - 01/14/2021 12:49 AM EDT EXAMINATION: CT [...] or traumatic malalignment involving the lumbar spine [employer] Phone: No evidence of an acute fracture or traumatic malalignment involving the lumbar spine [employer] Phone: CT THORACIC SPINE TRAUMA REC ONSTRUCTIONon [...] Austin Roca DO 01/14/21 Final result Normal [facility] EXAMINATION: CT OF T HE THORACIC [...] SOFT TISSUES: No paraspinal mass is seen. [employer] Phone: No evidence of an acute fracture or traumatic malalignment involving the thoracic spine [employer] Phone: [place], [place] Incoming Radiant Results From [employer] - 01/14/2021 12:52 AM EDT EXAMINATION: CT [...] or traumatic malalignment involving the thoracic spine [facility] [employer] Work Phone: Liver Profileon 01-14-2021 Albumin [Mass/Vol] 3.8 g/dL Normal 3.5-5.2 [facility] Comment on above: Performed By: #### L IVP #### [address] [address] [employer]: Wu England MD Albumin/Glob Ratio 1.7 Normal 1.0-2.5 [facility] Comment on above: Performed By: #### L IVP #### [address] [address] [employer]: Wu England MD Alkaline Phos 76 U/L Normal 35-104 [facility] Comment on above: Performed By: #### L IVP #### [address] [address] [employer]: Wu England MD ALT [Catalytic activity/Vol] 12 U/L Normal 5-33 [facility] Comment on above: Performed By: #### L IVP #### [facility] [address] [place], [place] [id number] [employer]: Wu England MD AST [Catalytic activity/Vol] 25 U/L Normal <32 [facility] Comment on above: Performed By: #### L IVP #### [address] [id number] [employer]: Wu England MD Bilirubin [Mass/Vol] 0.11 mg/dL Low 0.3-1.2 [facility] Comment on above: Performed By: #### L IVP #### [facility] [address] [place], [place] [id number] [employer]: Wu England MD Bilirubin, Indirect CANNOT BE CALCULATED Normal 0.00-1 .00 [facility] Comment on above: Performed By: #### L IVP #### [address] [id number] [employer]: Wu England MD Bilirubin.indirect [Mass/Vol] mg/dL Normal <0.31 [facility] Comment on above: Performed By: #### L IVP #### [address] [address] [employer]: Wu England MD Protein [Mass/Vol] 6.0 g/dL Low 6.4-8.3 [facility] Comment on above: Performed By: #### L IVP #### [address] [phone] [employer]: Wu England MD MRSA DNA Probe, Nasalon MRSA, DNA, Nasal NEGATIVE: MRSA DNA n ot detected by nucleic acid amplification. NEGATIVE: MRSA DNA not detected by nucleic acid amplificati [facility] [employer] Phone: Comment on above: Results should be used as an adjunct to nosocomial control efforts to identify patients needing enhanced precautions. The test is not intended to identify patients with staphylococcal infections. Results should not be used to guide or monitor treatment for MRSA infections. Specimen Description .NASAL SWAB [facility] [employer] Phone: MRSA, DNA, Nasalon MRSA, DNA, Nasal NEGATIVE: MRSA DNA n ot detected by nucleic acid amplification. Normal NMRSAA [facility] Comment on above: Result Comment: Results should be used as an adjunct to nosocomial control efforts to identify patients needing enhanced precautions. The test is not intended to identify patients with staphylococcal infections. Results should not be used to guide or monitor treatment for MRSA infections. Performed By: #### C DP, ALCB, BMPX #### [address] [address] [employer]: Wu England MD Specimen Description .NASAL SWAB Normal [facility] Comment on above: Performed By: #### C DP ALCB, BMPX #### [place] [address] [employer]: Wu England MD Magnesiumon 01-14-2021 Magnesium [Mass/Vol] 1.7 mg/dL Normal 1.6-2.6 [facility] Comment on above: Performed By: #### C OLAF ALCB, BMPX #### [address] [address] [employer]: Wu England MD Magnesium [Mass/Vol] 1.7 mg/dL 1.6 - 2.6 mg/dL [facility] [employer] Phone: Phosphoruson 01-14-2021 Phosphate [Mass/Vol] 3.2 mg/dL 2.6 - 4.5 mg/dL [facility] Phone: Phosphorus, Inorg.on 021 Phosphorus, Inorg. 3.2 mg/dL Normal 2.6-4.5 [facility] Comment on above: Performed By: #### C DP ALCB, BMPX #### [address] [address] [employer]: Wu England MD [id number] 01-14-2021 SARS-CoV-2 (COVID-19) RNA CY+probe Ql (Unsp spec) Not detected Normal NOTDET [facility] Comment on above: Result Comment: Rapid [...] management decisions. Fact sheet for Healthcare Providers: https://www.fda.gov/media/122540/download Fact sheet for Patients: https://www.fda.gov/media/264985/download Methodology: Isothermal Nucleic Acid Amplification Performed By: #### C OVRB #### [facility] [employer] [address] [place] [address] [employer]: Kentrell Reeves MD Trauma Profileon 01-14-2021 aPTT Coag (Bld) [Time] 22.5 s Normal 20.5-30.5 [facility] Comment on above: Result Comment: IV Heparin Therapy Range: 48.6-77.8 Performed By: #### C DP ALCB, BMPX #### [address] [address] [employer]: Wu England MD INR Coag (PPP) [Relative time] 0.9 {INR} Normal [facility] Comment on above: Result Comment: Therapeutic Range: Moderate Anticoagulant Intensity: INR = 2.0-3.0 High Anticoagulant Intensity: INR = 2.5-3.5 Performed By: #### C DP, ALCB, BMPX #### [address] [phone] [employer]: Wu England MD PT Coag (PPP) [Time] 10.0 s Normal 9.1-12.3 [facility] Comment on above: Performed By: #### C DP, ALCB, BMPX #### [place] [address] [employer]: Wu England MD (cont.) Normal [facility] Comment on above: Result Comment: Aver age GFR for 60-69 years old: 85 mL/min/1.73sq m Chronic Kidney Disease: <60 mL/min/1.73sq m Kidney failure: <15 mL/min/1.73sq m eGFR calculated using average adult body mass. Additional eGFR calculator available at: http://www.GetSet/multiple_crcl_2012.htm Performed By: #### C DP ALCB, BMPX #### [place] [address] [employer]: Wu England MD Anion gap [Moles/Vol] 13 mmol/L Normal 9-17 [facility] Comment on above: Performed By: #### C DP ALCB, BMPX #### [place] [address] [employer]: Wu England MD Chloride [Moles/Vol] 105 mmol/L Normal 98-107 [facility] Comment on above: Performed By: #### C DP ALCB, BMPX #### [place] [address] [employer]: Wu England MD CO2 [Moles/Vol] 21 mmol/L Normal 20-31 [facility] Comment on above: Performed By: #### C DP, ALCB, BMPX #### [place] [address] [employer]: Wu England MD Creatinine [Mass/Vol] 0.46 mg/dL Low 0.50-0.90 [facility] Comment on above: Performed By: #### C DP, ALCB, BMPX #### [place] [address] [employer]: Wu England MD Ethanol [Mass/Vol] 171 mg/dL High <10 [facility] Comment on above: Performed By: #### C DP, ALCB, BMPX #### [place] [address] [employer]: Wu England MD Ethanol percent 0.171 % High <0.010 [facility] Comment on above: Performed By: #### C DP, ALCB, BMPX #### [place] [address] [employer]: Wu England MD GFR, Amer >60 Normal >60 [facility] Comment on above: Performed By: #### C DP, ALCB, BMPX #### [place] [address] [employer]: Wu England MD GFR,non Amer >60 Normal >60 [facility] Comment on above: Performed By: #### C DP, ALCB, BMPX #### [place] [address] [employer]: Wu England MD Glucose [Mass/Vol] 89 mg/dL Normal 70-99 [facility] Comment on above: Performed By: #### C DP, ALCB, BMPX #### [facility] [place] [address] [employer]: Wu England MD Potassium [Moles/Vol] 4.0 mmol/L Normal 3.7-5.3 [facility] Comment on above: Performed By: #### C DP, ALCB, BMPX #### [place] [address] [employer]: Wu England MD Sodium [Moles/Vol] 139 mmol/L Normal 135-144 [facility] Comment on above: Performed By: #### C DP, ALCB, BMPX #### [place] [address] [employer]: Wu England MD Urea nitrogen [Mass/Vol] 7 mg/dL Low 8-23 [facility] Comment on above: Performed By: #### C DP, ALCB, BMPX #### [place] [address] [employer]: Wu England MD Body Temp. 37.0 [facility] Comment on above: Performed By: #### C DP, ALCB, BMPX #### [place] [address] [employer]: Wu England MD Carboxy Hgb 2.1 % Normal 0-5 [facility] Comment on above: Result Comment: Reference Range: Non-Smokers 0-2% Average Smoker 2-4% Heavy Smoker <10% Performed By: #### C DP, ALCB, BMPX #### [place] [address] [employer]: Wu England MD FIO2 VENOUS Normal [facility] Comment on above: Performed By: #### C DP, ALCB, BMPX #### [place] [address] [employer]: Wu England MD HCO3 (Bld) [Moles/Vol] 24.3 mmol/L Normal 24-30 [facility] Comment on above: Performed By: #### C DP, ALCB, BMPX #### [place] [address] [employer]: Wu England MD Negative Base Excess 0.6 mmol/L Normal 0.0-2.0 [facility] Comment on above: Performed By: #### C DP, ALCB, BMPX #### [place] [address] [employer]: Wu England MD Oxygen (Bld) [Partial pressure] 82.0 mm[Hg] High 30-50 [facility] Comment on above: Performed By: #### C DP, ALCB, BMPX #### [place] [address] [employer]: Wu England MD Oxygen saturation in Blood 94.4 % High 60.0-85.0 [facility] Comment on above: Performed By: #### C DP, ALCB, BMPX #### [place] [address] [employer]: Wu England MD pCO2 43.4 Normal 39-55 [facility] Comment on above: Performed By: #### C DP, ALCB, BMPX #### [place] [address] [employer]: Wu England MD pH (Bld) 7.367 [pH] Normal 7.320-7.420 [facility] Comment on above: Performed By: #### C DP, ALCB, BMPX #### [place] [address] [employer]: Wu England MD Erythrocyte distribution width (RBC) [Ratio] 12.9 % Normal 11.8-14.4 [facility] Comment on above: Performed By: #### C DP, ALCB, BMPX #### [place] [address] [employer]: Wu England MD Hematocrit (Bld) [Volume fraction] 41.8 % Normal 36.3-47.1 [facility] Comment on above: Performed By: #### C DP, ALCB, BMPX #### [place] [address] [employer]: Wu England MD Hemoglobin (Bld) [Mass/Vol] 13.3 g/dL Normal 11.9-15.1 [facility] Comment on above: Performed By: #### C DP, ALCB, BMPX #### [place] [address] [employer]: Wu England MD MCH (RBC) [Entitic mass] 32.5 pg Normal 25.2-33.5 [facility] Comment on above: Performed By: #### C DP, ALCB, BMPX #### [place] [address] [employer]: Wu England MD MCHC (RBC) [Mass/Vol] 31.8 g/dL Normal 28.4-34.8 [facility] Comment on above: Performed By: #### C DP, ALCB, BMPX #### [address] [place] [address] [employer]: Wu England MD MCV (RBC) [Entitic vol] 102.2 fL Normal 82.6-102.9 [facility] Comment on above: Performed By: #### C DP, ALCB, BMPX #### [place] [address] [employer]: Wu England MD NRBC Automated 0.0 per 100 WBC Normal 0.0 [facility] Comment on above: Performed By: #### C DP, ALCB, BMPX #### [place] [address] [employer]: Wu England MD Platelet mean volume (Bld) [Entitic vol] 10.2 fL Normal 8.1-13.5 [facility] Comment on above: Performed By: #### C DP, ALCB, BMPX #### [place] [address] [employer]: Wu England MD Platelets (Bld) [#/Vol] 206 10*3/uL Normal 138-453 [facility] Comment on above: Performed By: #### C DP, ALCB, BMPX #### [place] [address] [employer]: Wu England MD RBC (Bld) [#/Vol] 4.09 10*6/uL Normal 3.95-5.11 [facility] Comment on above: Performed By: #### C DP, ALCB, BMPX #### [place] [address] [employer]: Wu England MD WBC (Bld) [#/Vol] 7.8 10*3/uL Normal 3.5-11.3 [facility] Comment on above: Performed By: #### C DP, ALCB, BMPX #### [place] [address] [employer]: Wu England MD Darrick Test NOT REPORTED Normal [facility] Comment on above: Performed By: #### C DP, ALCB, BMPX #### [place] [address] [employer]: Wu England MD Methemoglobin NOT REPORTED Normal 0.0-1.5 [facility] Comment on above: Performed By: #### C DP, ALCB, BMPX #### [place] [address] [employer]: Wu England MD Mode NOT REPORTED Normal [facility] Comment on above: Performed By: #### C DP, ALCB, BMPX #### [place] [address] [employer]: Wu England MD Notification Time NOT REPORTED Normal [facility] Comment on above: Performed By: #### C DP, ALCB, BMPX #### [place] [address] [employer]: Wu England MD Notification: NOT REPORTED Normal [facility] Comment on above: Performed By: #### C DP, ALCB, BMPX #### [place] [address] [employer]: Wu England MD O2 Device/Flow/% NOT REPORTED Normal [facility] Comment on above: Performed By: #### C DP, ALCB, BMPX #### [place] [address] [employer]: Wu England MD Oxyhemoglobin NOT REPORTED Normal 95.0-98.0 [facility] Comment on above: Performed By: #### C DP, ALCB, BMPX #### [place] [address] [employer]: Wu England MD Pco2 Adj'd for Temp. NOT REPORTED Normal 39-55 [facility] Comment on above: Performed By: #### C DP, ALCB, BMPX #### [place] [address] [employer]: Wu England MD PEEP/CPAP NOT REPORTED Normal [facility] Comment on above: Performed By: #### C DP, ALCB, BMPX #### [place] [address] [employer]: Wu England MD pH Adjst'd for Temp. NOT REPORTED Normal 7.320-7.420 [facility] Comment on above: Performed By: #### C DP, ALCB, BMPX #### [place] [address] [employer]: Wu England MD pO2 Adj'd for Temp. NOT REPORTED Normal 30-50 [facility] Comment on above: Performed By: #### C DP, ALCB, BMPX #### [place] [address] [employer]: Wu England MD Positive Base Excess NOT REPORTED Normal 0.0-2.0 [facility] Comment on above: Performed By: #### C DP, ALCB, BMPX #### [address] [address] [employer]: Wu England MD PSV NOT REPORTED Normal [facility] Comment on above: Performed By: #### C DP, ALCB, BMPX #### [address] [address] [employer]: Wu England MD Pt. Position NOT REPORTED Normal [facility] Comment on above: Performed By: #### C DP, ALCB, BMPX #### [place] [address] [employer]: Wu England MD Respiratory Rate NOT REPORTED Normal [facility] Comment on above: Performed By: #### C DP, ALCB, BMPX #### [address] [address] [employer]: Wu England MD Set Rate NOT REPORTED Normal [facility] Comment on above: Performed By: #### C DP, ALCB, BMPX #### [address] [address] [employer]: Wu England MD Site Drawn NOT REPORTED Normal [facility] Comment on above: Performed By: #### C DP, ALCB, BMPX #### [address] [address] [employer]: Wu England MD Staging: NOT REPORTED Normal [facility] Comment on above: Performed By: #### C DP, ALCB, BMPX #### [address] [address] [employer]: Wu England MD Text for Respiratory NOT REPORTED Normal [facility] Comment on above: Performed By: #### C DP, ALCB, BMPX #### [place] [address] [employer]: Wu England MD Total Hb NOT REPORTED Normal 12.0-16.0 [facility] Comment on above: Performed By: #### C DP, ALCB, BMPX #### [place] [address] [employer]: Wu England MD Total Rate NOT REPORTED Normal [facility] Comment on above: Performed By: #### C DP, ALCB, BMPX #### [place] [address] [employer]: Wu England MD VT NOT REPORTED Normal [facility] Comment on above: Performed By: #### C DP, ALCB, BMPX #### [place] [address] [employer]: Wu England MD APTTon 01-13-2021 aPTT Coag (Bld) [Time] 21.5 s Normal 21.3-31.3 [facility] Comment on above: Performed By: #### P T, PTT #### [place] [address] [employer]: Wu England MD aPTT Coag (Bld) [Time] 21.5 s [facility] Work Phone: Basic Metab w/rfx MGon 01-13 (cont.) Normal [facility] Comment on above: Result Comment: Aver age GFR for 60-69 years old: 85 mL/min/1.73sq m Chronic Kidney Disease: <60 mL/min/1.73sq m Kidney failure: <15 mL/min/1.73sq m eGFR calculated using average adult body mass. Additional eGFR calculator available at: http://www.P[employer] Audio.Stellarray/multiple_crcl_2011.htm Performed By: #### C DP, ALCB, BMPX #### [place] [address] [employer]: Wu England MD Anion gap [Moles/Vol] 11 mmol/L Normal 9-17 [facility] Comment on above: Performed By: #### C DP, ALCB, BMPX #### [place] [address] [employer]: Wu Enlgand MD Calcium [Mass/Vol] 9.2 mg/dL Normal 8.6-10.4 [facility] Comment on above: Performed By: #### C DP, ALCB, BMPX #### [place] [address] [employer]: Wu England MD Chloride [Moles/Vol] 104 mmol/L Normal 98-107 [facility] Comment on above: Performed By: #### C DP, ALCB, BMPX #### [place] [address] [employer]: Wu England MD CO2 [Moles/Vol] 26 mmol/L Normal 20-31 [facility] Comment on above: Performed By: #### C DP, ALCB, BMPX #### [place] [address] [employer]: Wu England MD Creatinine [Mass/Vol] 0.64 mg/dL Normal 0.50-0.90 [facility] Comment on above: Performed By: #### C DP, ALCB, BMPX #### [address] [id number] [employer]: Wu England MD GFR, Amer >60 Normal >60 [facility] Comment on above: Performed By: #### C DP, ALCB, BMPX #### [place] [address] [employer]: Wu England MD GFR,non Amer >60 Normal >60 [facility] Comment on above: Performed By: #### C DP, ALCB, BMPX #### [place] [address] [employer]: Wu England MD Glucose [Mass/Vol] 121 mg/dL High 70-99 [facility] Comment on above: Performed By: #### C DP, ALCB, BMPX #### [place] [address] [employer]: Wu England MD Potassium [Moles/Vol] 3.8 mmol/L Normal 3.7-5.3 [facility] Comment on above: Performed By: #### C DP, ALCB, BMPX #### [place] [address] [employer]: Wu England MD Sodium [Moles/Vol] 141 mmol/L Normal 135-144 [facility] Comment on above: Performed By: #### C DP, ALCB, BMPX #### [place] [id number] [employer]: Wu England MD Urea nitrogen [Mass/Vol] 9 mg/dL Normal 8-23 [facility] Comment on above: Performed By: #### C DP, ALCB, BMPX #### [facility] [address] [place], [place] [id number] [employer]: Wu England MD BUN/CRE Ratio NOT REPORTED Normal - [facility] Comment on above: Performed By: #### C DP, ALCB, BMPX #### [address] [id number] [employer]visor [employer]: Wu England MD Staging: NOT REPORTED Normal [facility] Comment on above: Performed By: #### C DP, ALCB, BMPX #### [address] [address] [employer]visor [employer]: Wu England MD Basic Metabolic Panel w/ Ref sandra to MGon 01-13-2021 Anion gap [Moles/Vol] 11 mmol/L 9 - 17 mmol/L [employer] Work Phone: Bun/Cre Ratio NOT REPORTED [facility] Work Phone: Calcium [Mass/Vol] 9.2 mg/dL 8.6 - 10. 4 mg/dL [employer] Phone: Chloride [Moles/Vol] 104 mmol/L 98 - 107 mmol/L [employer] Phone: CO2 [Moles/Vol] 26 mmol/L 20 - 31 mmol/L [employer] Phone: Creatinine [Mass/Vol] 0.64 mg/dL 0.50 - 0.90 mg/dL [employer] Phone: GFR >60 >60 mL/min [employer] Phone: GFR Non- >60 >60 mL/min [employer] Phone: GFR/1.73 sq M predicted among non-blacks MDRD (S/P/Bld) [Vol rate/Area] [employer] Phone: Comment on above: Average GFR for 60-6 9 years old: 85 mL/min/1.73sq m Chronic Kidney Disease: <60 mL/min/1.73sq m Kidney failure: <15 mL/min/1.73sq m eGFR calculated using average adult body mass. Additional eGFR calculator available at: http://www.GetSet/multiple_crcl_2012.htm GFR/1.73 sq M predicted among non-blacks MDRD (S/P/Bld) [Vol rate/Area] NOT REPORTED [employer] Phone: Glucose [Mass/Vol] 121 mg/dL High 70 - 99 mg/dL [employer] Phone: Potassium [Moles/Vol] 3.8 mmol/L 3.7 - 5.3 mmol/L [employer] Phone: Sodium [Moles/Vol] 141 mmol/L 135 - 144 mmol/L [employer] Phone: Urea nitrogen [Mass/Vol] 9 mg/dL 8 - 23 mg/dL [employer] Phone: CBC Auto Differentialon 04-0 Basophils (Bld) [#/Vol] 0.10 10*3/uL [employer] Phone: Basophils/100 WBC (Bld) 1 % 0 - 2 % [employer] Phone: Differential Type NOT REPORTED [employer] Phone: Eosinophils (Bld) [#/Vol] 0.10 10*3/uL [employer] Phone: Eosinophils/100 WBC (Bld) 2 % 1 - 4 % [employer] Phone: Erythrocyte distribution width (RBC) [Ratio] 13.6 % 12.5 - 15.4 % [employer] Phone: Hematocrit (Bld) [Volume fraction] 41.8 % 36 - 46 % [employer] Phone: Hemoglobin (Bld) [Mass/Vol] 13.8 g/dL 12.0 - 16.0 g/dL [employer] Phone: Lymphocytes (Bld) [#/Vol] 1.90 10*3/uL [employer] Phone: Lymphocytes/100 WBC (Bld) 36 % 24 - 44 % [employer] Phone: MCH (RBC) [Entitic mass] 32.6 pg 26 - 34 pg [employer] Phone: MCHC (RBC) [Mass/Vol] 33.1 g/dL 31 - 37 g/dL M [employer] Phone: MCV (RBC) [Entitic vol] 98.3 fL 80 - 100 fL [employer] Phone: Monocytes (Bld) [#/Vol] 0.50 10*3/uL [employer] Phone: Monocytes/100 WBC (Bld) 9 % 2 - 11 % [employer] Phone: Platelet mean volume (Bld) [Entitic vol] 8.7 fL 6.0 - 12.0 fL [employer] Phone: Platelets (Bld) [#/Vol] NOT REPORTED [employer] Phone: Platelets (Bld) [#/Vol] 246 10*3/uL [employer] Phone: RBC (Bld) [#/Vol] 4.25 10*6/uL 4.0 - 5.2 m/uL [employer] Phone: RBC morphology finding Nom (Bld) NOT REPORTED [employer] Phone: Segmented neutrophils/100 WBC (Bld) 52 % 36 - 66 % [employer] Phone: Segs Absolute 2.70 [facility] Work Phone: WBC (Bld) [#/Vol] NOT REPORTED per 100 WBC [facility] [employer] Work Phone: WBC (Bld) [#/Vol] 5.4 10*3/uL [facility] [employer] Work Phone: WBC Morphology NOT REPORTED [facility] Work Phone: CBC with Diffon 01-13-2021 Abs. Basophil 0.10 k/uL Normal 0.0-0.2 [facility] Comment on above: Performed By: #### C DP, ALCB, BMPX #### [facility] [address] [place] [address] Supervisor [employer]: Wu England MD Abs.Neutrophil (Seg) 2.70 k/uL Normal 1.8-7.7 [facility] Comment on above: Performed By: #### C DP, ALCB, BMPX #### [address] [address] [employer]visor [employer]: Wu England MD Basophils/100 WBC (Bld) 1 % Normal 0-2 [facility] Comment on above: Performed By: #### C DP, ALCB, BMPX #### [place] [id number] Supervisor [employer]: Wu England MD Eosinophils (Bld) [#/Vol] 0.10 10*3/uL Normal 0.0-0.4 [facility] Comment on above: Performed By: #### C DP, ALCB, BMPX #### [address] [address] [employer]visor [employer]: Wu England MD Eosinophils/100 WBC (Bld) 2 % Normal 1-4 [facility] Comment on above: Performed By: #### C DP, ALCB, BMPX #### [place] [address] [employer]visor [employer]: Wu England MD Erythrocyte distribution width (RBC) [Ratio] 13.6 % Normal 12.5-15.4 [facility] Comment on above: Performed By: #### C DP, ALCB, BMPX #### [place] [address] [employer]visor [employer]: Wu England MD Hematocrit (Bld) [Volume fraction] 41.8 % Normal 36-46 [facility] Comment on above: Performed By: #### C DP, ALCB, BMPX #### [place] [address] Supervisor [employer]: Wu England MD Hemoglobin (Bld) [Mass/Vol] 13.8 g/dL Normal 12.0-16.0 [facility] Comment on above: Performed By: #### C DP, ALCB, BMPX #### [place] [address] [employer]visor [employer]: Wu England MD Lymphocytes (Bld) [#/Vol] 1.90 10*3/uL Normal 1.0-4.8 [facility] Comment on above: Performed By: #### C DP, ALCB, BMPX #### [place] [address] [employer]visor [employer]: Wu England MD Lymphocytes/100 WBC (Bld) 36 % Normal 24-44 [facility] Comment on above: Performed By: #### C DP, ALCB, BMPX #### [place] [address] [employer]visor [employer]: Wu England MD MCH (RBC) [Entitic mass] 32.6 pg Normal 26-34 [facility] Comment on above: Performed By: #### C DP, ALCB, BMPX #### [place] [id number] Supervisor [employer]: Wu England MD MCHC (RBC) [Mass/Vol] 33.1 g/dL Normal 31-37 [facility] Comment on above: Performed By: #### C DP, ALCB, BMPX #### [place] [address] [employer]visor [employer]: Wu England MD MCV (RBC) [Entitic vol] 98.3 fL Normal 80-100 [facility] Comment on above: Performed By: #### C DP, ALCB, BMPX #### [place] [address] Supervisor [employer]: Wu England MD Monocytes (Bld) [#/Vol] 0.50 10*3/uL Normal 0.1-1.2 [facility] Comment on above: Performed By: #### C DP, ALCB, BMPX #### [place] [address] Supervisor [employer]: Wu England MD Monocytes/100 WBC (Bld) 9 % Normal 2-11 [facility] Comment on above: Performed By: #### C DP, ALCB, BMPX #### [place] [address] Supervisor [employer]: Wu England MD Neutrophil (Seg) 52 % Normal 36-66 [facility] Comment on above: Performed By: #### C DP, ALCB, BMPX #### [place] [address] [employer]visor [employer]: Wu England MD Platelet mean volume (Bld) [Entitic vol] 8.7 fL Normal 6.0-12.0 [facility] Comment on above: Performed By: #### C DP, ALCB, BMPX #### [place] [address] [employer]visor [employer]: Wu England MD Platelets (Bld) [#/Vol] 246 10*3/uL Normal 140-450 [facility] Comment on above: Performed By: #### C DP, ALCB, BMPX #### [place] [address] [employer]visor [employer]: Wu England MD RBC (Bld) [#/Vol] 4.25 10*6/uL Normal 4.0-5.2 [facility] Comment on above: Performed By: #### C DP, ALCB, BMPX #### [place] [address] [employer]visor [employer]: Wu England MD WBC (Bld) [#/Vol] 5.4 10*3/uL Normal 3.5-11.0 [facility] Comment on above: Performed By: #### C DP, ALCB, BMPX #### [place] [address] Supervisor [employer]: Wu England MD Abs.Imm.Granulocyte NOT REPORTED Normal 0.00-0.30 [facility] Comment on above: Performed By: #### C DP, ALCB, BMPX #### [place] [address] Supervisor [employer]: Wu England MD Auto Diff Performed NOT REPORTED Normal [facility] Comment on above: Performed By: #### C DP, ALCB, BMPX #### [place] [address] Supervisor [employer]: Wu England MD Immature Granulocyte NOT REPORTED Normal 0 Me [facility] Comment on above: Performed By: #### C DP, ALCB, BMPX #### [place] [address] Supervisor [employer]: Wu England MD NRBC Automated NOT REPORTED Normal [facility] Comment on above: Performed By: #### C DP, ALCB, BMPX #### [place] [address] Supervisor [employer]: Wu England MD Platelet Estimate NOT REPORTED Normal [facility] Comment on above: Performed By: #### C DP, ALCB, BMPX #### [place] [address] Supervisor [employer]: Wu England MD RBC morphology finding Nom (Bld) NOT REPORTED Normal [facility] Comment on above: Performed By: #### C DP, ALCB, BMPX #### [place] [address] Supervisor [employer]: Wu England MD WBC Morphology NOT REPORTED Normal [facility] Comment on above: Performed By: #### C DP, ALCB, BMPX #### [place] [address] Supervisor Chemical: Wu England MD CT Cervical Spine WO Contras ton 01-13-2021 [place], [facility] Incoming Radiant Results From [employer] - 01/13/2021 10:49 PM EDT EXAMINATION: CT [...] likely degenerative in etiology. DEGENERATIVE CHANGES: Multifocal cjdn-ql-tdrephly spondylosis is noted within the cervical spine [...] secondary to encroachment by disc osteophyte complex. [employer] Phone: 1. No acute abnormality of the cervical spine. 2. C2 on C3 and C3 on C4 anterolisthesis measuring 2-3 mm, likely degenerative. 3. 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 [employer] Phone: EXAMINATION: CT OF T HE CERVICAL [...] likely degenerative in etiology. DEGENERATIVE CHANGES: Multifocal qxqj-lx-ccuotqks spondylosis is noted within the cervical spine without significant associated central canal stenosis/compromise identified. 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 SOFT TISSUES: There is no prevertebral soft tissue swelling. [employer] Phone: CT Head WO Contraston 2020 Bilateral [...] 01/13/2021to be communicated to a licensed caregiver. [employer] Phone: Addendum by Lisa Raymond MD on 01/13/2021 10:19 PM ADDENDUM: Outside images are not available however based on the outside report which mentions chronic subdural, the subdural hematomas are acute and recent and related to current event. Critical results were called by Dr. Lisa Raymond MD to MAJOR Dean RICKETTS on 01/13/2021 at 22:15. [employer] Phone: EXAMINATION: CT OF T HE HEAD [...] a fracture involving the right parietal bone. [employer] Work Phone: [place], [facility] Incoming Radiant Results From [employer] - 01/13/2021 9:51 PM EDT EXAMINATION: CT [...] 01/13/2021to be communicated to a licensed caregiver. [facility] Work Phone: Ethanolon 01-13-2021 Ethanol [Mass/Vol] 276 mg/dL High <10 [facility] Work Phone: Ethanol percent 0.276 % High <0.010 [facility] Work Phone: Ethanol Alcoholon 01-13-2021 Ethanol [Mass/Vol] 276 mg/dL High <10 [facility] Comment on above: Performed By: #### C PUMA BABIN, BMPX #### [facility] [address] [place] [address] Supervisor [employer]: Wu England MD Ethanol percent 0.276 % High <0.010 [facility] Comment on above: Performed By: #### C JI BABINB, BMPX #### [facility] [address] [place] [address] Supervisor [employer]: Wu England MD Hepatic Function Panelon Albumin [Mass/Vol] 3.8 g/dL 3.5 - 5.2 g/dL [facility] [employer] Phone: Albumin/Globulin [Mass ratio] 1.7 {ratio} [facility] [employer] Phone: ALP [Catalytic activity/Vol] 76 U/L 35 - 104 U/L [facility] [employer] Phone: ALT [Catalytic activity/Vol] 12 U/L 5 - 33 U/L [facility] [employer] Phone: AST [Catalytic activity/Vol] 25 U/L <32 [facility] [employer] Phone: Bilirubin Ql (U) 0.11 mg/dL Low 0.3 - 1.2 mg/dL [facility] [employer] Phone: Bilirubin, Indirect CANNOT BE CALCULATED 0.00 - 1.00 mg/dL [facility] [employer] Phone: Bilirubin.direct [Mass/Vol] mg/dL <0.31 mg/dL [facility] [employer] Phone: Globulin (S) [Mass/Vol] NOT REPORTED 1.5 - 3.8 g/dL [facility] Phone: Interpretation and review of laboratory results Abnormal [facility] [employer] Phone: Protein [Mass/Vol] 6.0 g/dL Low 6.4 - 8.3 g/dL [facility] [employer] Phone: Liver Profileon 01-13-2021 Globulin Fraction NOT REPORTED Normal 1.5-3.8 [facility] Comment on above: Performed By: #### L IVP #### [facility] [address] [place] [address] Supervisor [employer]: Wu England MD Otheron 01-13-2021 Interpretation and review of laboratory results Abnormal [employer] Phone: Immature granulocytes (Bld) [#/Vol] NOT REPORTED [facility] Phone: PTon 01-13-2021 INR Coag (PPP) [Relative time] 0.9 {INR} Normal [facility] Comment on above: Result Comment: Therapeutic Range: Moderate Anticoagulant Intensity: INR = 2.0-3.0 High Anticoagulant Intensity: INR = 2.5-3.5 Performed By: #### P T, PTT #### [address] [id number] Supervisor [employer]: Wu England MD PT Coag (PPP) [Time] 9.8 s Normal 9.4-12.6 [facility] Comment on above: Performed By: #### P T, PTT #### [address] [id number] Supervisor [employer]: Wu England MD Protime-INRon 01-13-2021 INR Coag (PPP) [Relative time] 0.9 {INR} [facility] [employer] Phone: Comment on above: Therapeutic Range: Moderate Anticoagulant Intensity: INR = 2.0-3.0 High Anticoagulant Intensity: INR = 2.5-3.5 PT Coag (PPP) [Time] 9.8 s [facility] [employer] [facility] Phone: Basic Metabolic Panelon 12-12 Calcium [Mass/Vol] 9.3 mg/dL Normal 8.4-10.4 [employer] Comment on above: Performed By: #### B MP3 #### [employer] [facility] [place] [address] Glucose [Mass/Vol] 121 mg/dL High 70-100 [employer] Comment on above: Performed By: #### B MP3 #### [employer] [address], [place] Anion gap [Moles/Vol] 8 mmol/L Normal 3-13 [facility] Comment on above: Performed By: #### B MP3 #### [facility] [address], [place] CO2 [Moles/Vol] 21 mmol/L Low 22-30 [facility] Comment on above: Performed By: #### B MP3 #### [facility] [address], [place] Creatinine [Mass/Vol] 0.53 mg/dL Normal 0.52-1.25 [facility] Comment on above: Performed By: #### B MP3 #### [facility] [address], [place] eGFR OTHER > 90.0 Normal >60 [facility] Comment on above: Result Comment: KDIG O [...] secretion. Performed By: #### B MP3 #### [facility] [address], [place] GFR/1.73 sq M.predicted among blacks MDRD (S/P/Bld) [Vol rate/Area] mL/min/{1.73_m2} Normal >60 [facility] Comment on above: Performed By: #### B MP3 #### [facility] [address], [place] Urea nitrogen [Mass/Vol] 4 mg/dL Low 7-20 [facility] Comment on above: Performed By: #### B MP3 #### [facility] [address] [place] [address] Potassium [Moles/Vol] 3.5 mmol/L Normal 3.5-5.1 [facility] Comment on above: Performed By: #### B MP3 #### [facility] [address] [place] [address] Chloride [Moles/Vol] 102 mmol/L Normal 98-107 [facility] Comment on above: Performed By: #### B MP3 #### [facility] [address] [place] [address] Sodium [Moles/Vol] 132 mmol/L Low 135-145 [facility] Comment on above: Performed By: #### B MP3 #### [facility] [address] [place] [address] Anion gap [Moles/Vol] 8 mmol/L 3 - 13 mmol/L [facility] Work Phone: Calcium [Mass/Vol] 9.3 mg/dL 8.4 - 10. 4 mg/dL [facility] Work Phone: Chloride [Moles/Vol] 102 mmol/L 98 - 107 mmol/L [facility] Work Phone: CO2 [Moles/Vol] 21 mmol/L Low 22 - 30 mmol/L [facility] Work Phone: Creatinine [Mass/Vol] 0.53 mg/dL 0.52 - 1.25 mg/dL [facility] Work Phone: EGFR IF NonAfrican Angolan >90.0 >60 mL/min [facility] Work Phone: Comment on above: KDIGO guidelines [...] MDRD (S/P/Bld) [Vol rate/Area] mL/min/{1.73_m2} >60 mL/min [facility] Work Phone: Glucose [Mass/Vol] 121 mg/dL High 70 - 100 mg/dL [employer] Work Phone: Interpretation and review of laboratory results Abnormal [facility] Work Phone: Potassium [Moles/Vol] 3.5 mmol/L 3.5 - 5.1 mmol/L [facility] Work Phone: [phone] Sodium [Moles/Vol] 132 mmol/L Low 135 - 145 mmol/L [facility] Work Phone: Urea nitrogen [Mass/Vol] 4 mg/dL Low 7 - 20 mg/dL [facility] Work Phone: Test Performed by [facility] [employer] [facility], [address] [place] [phone] [facility] Work Phone: Basic Metabolic Panelon 12-12 Calcium [Mass/Vol] 9.3 mg/dL Normal 8.4-10.4 [facility] Comment on above: Performed By: #### M G3, PHOS3, HEMDF, BMP3M #### [facility] [place] [address] [place] [phone] Glucose [Mass/Vol] 77 mg/dL Normal 70-100 [facility] Comment on above: Performed By: #### M G3, PHOS3, HEMDF, BMP3M #### [address] [address] Anion gap [Moles/Vol] 6 mmol/L Normal 3-13 [facility] Comment on above: Performed By: #### M G3, PHOS3, HEMDF, BMP3M #### [facility] [address], [place] CO2 [Moles/Vol] 24 mmol/L Normal 22-30 [facility] Comment on above: Performed By: #### M G3, PHOS3, HEMDF, BMP3M #### [facility] [address] [place] Creatinine [Mass/Vol] 0.51 mg/dL Low 0.52-1.25 [facility] Comment on above: Performed By: #### M G3, PHOS3, HEMDF, BMP3M #### [facility] [address] [place] eGFR OTHER > 90.0 Normal >60 [facility] Comment on above: Result Comment: KDIG O [...] #### M G3, PHOS3, HEMDF, BMP3M #### [facility] [address], [place] GFR/1.73 sq M.predicted among blacks MDRD (S/P/Bld) [Vol rate/Area] mL/min/{1.73_m2} Normal >60 [facility] Comment on above: Performed By: #### M G3, PHOS3, HEMDF, BMP3M #### [facility] [address], [place] Urea nitrogen [Mass/Vol] 4 mg/dL Low 7-20 [facility] Comment on above: Performed By: #### M G3, PHOS3, HEMDF, BMP3M #### [place] [address] [address], [place] Chloride [Moles/Vol] 105 mmol/L Normal 98-107 [facility] Comment on above: Performed By: #### M G3, PHOS3, HEMDF, BMP3M #### [place] [address] [address], [place] Potassium [Moles/Vol] 3.9 mmol/L Normal 3.5-5.1 [facility] Comment on above: Performed By: #### M G3, PHOS3, HEMDF, BMP3M #### [place] [address] [address], [place] Sodium [Moles/Vol] 134 mmol/L Low 135-145 [facility] Comment on above: Performed By: #### M G3, PHOS3, HEMDF, BMP3M #### [place] [address] [address], [place] Anion gap [Moles/Vol] 6 mmol/L 3 - 13 mmol/L [facility] Work Phone: Calcium [Mass/Vol] 9.3 mg/dL 8.4 - 10. 4 mg/dL [facility] Work Phone: Chloride [Moles/Vol] 105 mmol/L 98 - 107 mmol/L [facility] Work Phone: CO2 [Moles/Vol] 24 mmol/L 22 - 30 mmol/L [facility] Work Phone: Creatinine [Mass/Vol] 0.51 mg/dL Low 0.52 - 1.25 mg/dL [facility] Work Phone: EGFR IF NonAfrican Angolan >90.0 >60 mL/min [facility] Work Phone: Comment on above: KDIGO guidelines [...] MDRD (S/P/Bld) [Vol rate/Area] mL/min/{1.73_m2} >60 mL/min [facility] Work Phone: Glucose [Mass/Vol] 77 mg/dL 70 - 100 mg/dL [employer] Work Phone: Interpretation and review of laboratory results Abnormal [facility] Work Phone: Potassium [Moles/Vol] 3.9 mmol/L 3.5 - 5.1 mmol/L [facility] Work Phone: Sodium [Moles/Vol] 134 mmol/L Low 135 - 145 mmol/L [facility] Work Phone: Urea nitrogen [Mass/Vol] 4 mg/dL Low 7 - 20 mg/dL [facility] Work Phone: Test Performed by [employer], [address] [place] [id number] [facility] Work Phone: COVID-19on 12-26-2020 SARS-CoV-2 Not Detected. Not Detected [facility] Work Phone: Comment on above: Not Detected. Expected Result: Not Detected _ Real-time, RT-PCR performed on the [employer] System by the [facility] Negative results do not preclude SARS-CoV-2 infection and should not be used as the sole basis for treatment or other patient management decisions. This assay was developed by [employer] and distributed under an Emergency Use Authorization (EUA) granted by the FDA for the qualitative detection of SARS-CoV-2 nucleic acid. Provider and patient fact sheets can be found at https://www.fda.gov/media/545915/download and https://www.fda.gov/media/828693/download. Test Performed by [employer] [facility], [address] [place] [id number] 12-26-2020 SARS-CoV-2 (COVID-19) RNA CY+probe Ql (Unsp spec) SARS-CoV-2 --> Status: F Not Detected. Expected Result: Not Detected _ Real-time, RT-PCR performed on the [employer] System by the [employer] Service Negative results do not preclude SARS-CoV-2 infection and should not be used as the sole basis for treatment or other patient management decisions. This assay was developed by [employer] and distributed under an Emergency Use Authorization (EUA) granted by the FDA for the qualitative detection of SARS-CoV-2 nucleic acid. Provider and patient fact sheets can be found at https://www.[facility].gov/me caio/094595/download and https://www.cartmi.gov/ca caio/503640/download. Expected Result: Not Detected _ Real-time, RT-PCR performed on the [employer] System by the [employer] Service Negative results do not preclude SARS-CoV-2 infection and should not be used as the sole basis for treatment or other patient management decisions. This assay was developed by [employer] and distributed under an Emergency Use Authorization (EUA) granted by the FDA for the qualitative detection of SARS-CoV-2 nucleic acid. Provider and patient fact sheets can be found at https://www.cartmi.gov/me caio/480080/download and https://www.cartmi.gov/ca caio/688876/download. Normal [employer] [facility] Comment on above: Performed By: #### M G3, PHOS3, HEMDF, BMP3M #### [employer] [address] [place] [phone] BASIC METABOLIC PANELon 12-12 Anion gap [Moles/Vol] 9 mmol/L 3 - 13 mmol/L [employer] Work Phone: Calcium [Mass/Vol] 9.4 mg/dL 8.4 - 10. 4 mg/dL [employer] Work Phone: [phone] Chloride [Moles/Vol] 104 mmol/L 98 - 107 mmol/L [facility] Work Phone: CO2 [Moles/Vol] 25 mmol/L 22 - 30 mmol/L [facility] Work Phone: Creatinine [Mass/Vol] 0.49 mg/dL Low 0.52 - 1.25 mg/dL [facility] Work Phone: EGFR IF NonAfrican Angolan >90.0 >60 mL/min [facility] Work Phone: Comment on above: KDIGO guidelines [...] rate/Area] mL/min/{1.73_m2} >60 mL/min [facility] Work Phone: [phone] Glucose [Mass/Vol] 92 mg/dL 70 - 100 mg/dL [facility] [employer] Work Phone: Interpretation and review of laboratory results Abnormal [facility] Work Phone: [phone] Potassium [Moles/Vol] 4.1 mmol/L 3.5 - 5.1 mmol/L [facility] Work Phone: [phone] Sodium [Moles/Vol] 137 mmol/L 135 - 145 mmol/L [facility] Work Phone: [phone] Urea nitrogen [Mass/Vol] 8 mg/dL 7 - 20 mg/dL [facility] Work Phone: Test Performed by [facility] [facility], [address] [place] [address] [facility] Work Phone: Basic Metabolic Panelon 12-12 Calcium [Mass/Vol] 9.4 mg/dL Normal 8.4-10.4 [facility] Comment on above: Performed By: #### M G3, PHOS3, HEMDF, BMP3M #### [facility] [address] [place], [place] Glucose [Mass/Vol] 92 mg/dL Normal 70-100 [facility] Comment on above: Performed By: #### M G3, PHOS3, HEMDF, BMP3M #### [place] [address] [place], [place] Urea nitrogen [Mass/Vol] 8 mg/dL Normal 7-20 [facility] Comment on above: Performed By: #### M G3, PHOS3, HEMDF, BMP3M #### [facility] [place] [facility] [address] [place], [place] Anion gap [Moles/Vol] 9 mmol/L Normal 3-13 [facility] Comment on above: Performed By: #### M G3, PHOS3, HEMDF, BMP3M #### [facility] [employer] [facility] [address] [place], [place] CO2 [Moles/Vol] 25 mmol/L Normal 22-30 [facility] Comment on above: Performed By: #### M G3, PHOS3, HEMDF, BMP3M #### [facility] [employer] [facility] [address] [place], [place] Creatinine [Mass/Vol] 0.49 mg/dL Low 0.52-1.25 [facility] Comment on above: Performed By: #### M G3, PHOS3, HEMDF, BMP3M #### [facility] [address] [place], [place] eGFR OTHER > 90.0 Normal >60 [facility] Comment on above: Result Comment: KDIG O [...] #### M G3, PHOS3, HEMDF, BMP3M #### [address] GFR/1.73 sq M.predicted among blacks MDRD (S/P/Bld) [Vol rate/Area] mL/min/{1.73_m2} Normal >60 [facility] Comment on above: Performed By: #### Ruben G3, PHOS3, HEMDF, BMP3M #### [address] [address] Chloride [Moles/Vol] 104 mmol/L Normal 98-107 [facility] Comment on above: Performed By: #### M G3, PHOS3, HEMDF, BMP3M #### [address] [address] Potassium [Moles/Vol] 4.1 mmol/L Normal 3.5-5.1 [facility] Comment on above: Performed By: #### M G3, PHOS3, HEMDF, BMP3M #### [address] [address] Sodium [Moles/Vol] 137 mmol/L Normal 135-145 [facility] Comment on above: Performed By: #### M G3, PHOS3, HEMDF, BMP3M #### [address] [address] Basic Metabolic Panelon 03- Anion gap [Moles/Vol] 10 mmol/L Normal 3-13 [facility] Comment on above: Performed By: #### B MP3 #### [facility] [address] [place] [address] Calcium [Mass/Vol] 9.4 mg/dL Normal 8.4-10.4 [facility] Comment on above: Performed By: #### B MP3 #### [facility] [address] [place] [address] CO2 [Moles/Vol] 22 mmol/L Normal 22-30 [facility] Comment on above: Performed By: #### B MP3 #### [facility] [address] [place] [address] Glucose [Mass/Vol] 126 mg/dL High 70-100 [facility] Comment on above: Performed By: #### B MP3 #### [facility] [address] [place] [address] Urea nitrogen [Mass/Vol] 10 mg/dL Normal 7-20 [facility] Comment on above: Performed By: #### B MP3 #### [facility] [address] [place] [address] Creatinine [Mass/Vol] 0.50 mg/dL Low 0.52-1.25 [facility] Comment on above: Performed By: #### B MP3 #### [facility] [address] [place] [address] eGFR OTHER > 90.0 Normal >60 [facility] Comment on above: Result Comment: KDIG O [...] secretion. Performed By: #### B MP3 #### [facility] [address] [place], [place] GFR/1.73 sq M.predicted among blacks MDRD (S/P/Bld) [Vol rate/Area] mL/min/{1.73_m2} Normal >60 [facility] Comment on above: Performed By: #### B MP3 #### [facility] [address] [place], [place] Chloride [Moles/Vol] 104 mmol/L Normal 98-107 [facility] Comment on above: Performed By: #### B MP3 #### [place] [address] [address] [place], [place] Potassium [Moles/Vol] 4.1 mmol/L Normal 3.5-5.1 [facility] Comment on above: Result Comment: Slig htly hemolysed, interpret with caution. Performed By: #### B MP3 #### [place] [address] [address] [place], [place] Sodium [Moles/Vol] 135 mmol/L Normal 135-145 [facility] Comment on above: Performed By: #### B MP3 #### [place] [address] [address] [place], [place] Anion gap [Moles/Vol] 10 mmol/L 3 - 13 mmol/L [facility] Work Phone: Calcium [Mass/Vol] 9.4 mg/dL 8.4 - 10. 4 mg/dL [facility] Work Phone: Chloride [Moles/Vol] 104 mmol/L 98 - 107 mmol/L [facility] Work Phone: CO2 [Moles/Vol] 22 mmol/L 22 - 30 mmol/L [facility] Work Phone: Creatinine [Mass/Vol] 0.5 mg/dL Low 0.52 - 1.25 mg/dL [facility] Work Phone: EGFR IF NonAfrican Angolan >90.0 >60 mL/min [facility] Work Phone: Comment on above: KDIGO guidelines [...] MDRD (S/P/Bld) [Vol rate/Area] mL/min/{1.73_m2} >60 mL/min [facility] Work Phone: Glucose [Mass/Vol] 126 mg/dL High 70 - 100 mg/dL [facility] Work Phone: Interpretation and review of laboratory results Abnormal [facility] Work Phone: Potassium [Moles/Vol] 4.1 mmol/L 3.5 - 5.1 mmol/L [facility] Work Phone: Comment on above: Slightly hemolysed, interpret with caution. Sodium [Moles/Vol] 135 mmol/L 135 - 145 mmol/L [facility] Work Phone: Urea nitrogen [Mass/Vol] 10 mg/dL 7 - 20 mg/dL [facility] Work Phone: Test Performed by [employer], [address] [place] [address] [facility] Work Phone: COVID-19on 12-20-2020 SARS-CoV-2 Not Detected. Not Detected [facility] Work Phone: Comment on above: Not Detected. Expected Result: Not Detected _ Real-time, RT-PCR performed on the ACS Global System by the [facility] Microbiology Service Negative results do not preclude SARS-CoV-2 infection and should not be used as the sole basis for treatment or other patient management decisions. This assay was developed and its performance characteristics determined by the [facility] CYPHER Service. The U. S. Food and Drug Administration has not approved or cleared this test; however, FDA clearance or approval is not currently required for clinical use. Test Performed by [facility] [employer] [facility], [address] [place] [address] [id number] 12-20-2020 SARS-CoV-2 (COVID-19) RNA CY+probe Ql (Unsp spec) SARS-CoV-2 --> Status: F Not Detected. Expected Result: Not Detected _ Real-time, RT-PCR performed on the ACS Global System by the [facility] Negative results do not preclude SARS-CoV-2 infection and should not be used as the sole basis for treatment or other patient management decisions. This assay was developed and its performance characteristics determined by the [facility] CYPHER Service. The [place]. S. Food and Drug Administration has not approved or cleared this test; however, FDA clearance or approval is not currently required for clinical use. Expected Result: Not Detected _ Real-time, RT-PCR performed on the ACS Global System by the [facility] Health System Negative results do not preclude SARS-CoV-2 infection and should not be used as the sole basis for treatment or other patient management decisions. This assay was developed and its performance characteristics determined by the [facility] CYPHER Service. The [place]. S. Food and Drug Administration has not approved or cleared this test; however, FDA clearance or approval is not currently required for clinical use. Normal [facility] Comment on above: Performed By: #### A PTT, FIBGN, LDH3, DDI2, B12, CMP3, FERR3, HEMDF, CRP2, PT, FOLT3 #### [facility] [employer] [address] [address] #### [id number] #### [facility] [address] [place] [address] Sodiumon 12-19-2020 Sodium [Moles/Vol] 131 mmol/L Low 135-145 [facility] Comment on above: Performed By: #### N A3 #### [address] [place] [address] Interpretation and review of laboratory results Abnormal [facility] Work Phone: [phone] Sodium [Moles/Vol] 131 mmol/L Low 135 - 145 mmol/L [facility] Work Phone: [phone] Test Performed by [facility] [facility] [address] [facility] Work Phone: [phone] Basic Metabolic Panelon 03-0 -2020 Anion gap [Moles/Vol] 6 mmol/L Normal 3-13 [facility] Work Phone: [phone] Comment on above: Performed By: #### B MP3 #### [facility] [facility] [address] [place] [address] Calcium [Mass/Vol] 8.9 mg/dL Normal 8.4-10.4 [facility] Work Phone: [phone] Comment on above: Performed By: #### B MP3 #### [facility] [facility] [address] [place] [address] CO2 [Moles/Vol] 25 mmol/L Normal 22-30 [facility] Work Phone: [phone] Comment on above: Performed By: #### B MP3 #### [facility] [facility] [address] [place] [address] Glucose [Mass/Vol] 95 mg/dL Normal 70-100 [facility] Work Phone: [phone] Comment on above: Performed By: #### B MP3 #### [facility] [facility] [address] [place] [address] Urea nitrogen [Mass/Vol] 14 mg/dL Normal 7-20 [facility] Work Phone: [phone] Comment on above: Performed By: #### B MP3 #### [facility] [facility] [address] [place] [address] Creatinine [Mass/Vol] 0.42 mg/dL Low 0.52-1.25 [facility] Work Phone: [phone] Comment on above: Performed By: #### B MP3 #### [employer] [facility] [address] [place] [address] eGFR OTHER > 90.0 Normal >60 [facility] Comment on above: Result Comment: KDIG O [...] secretion. Performed By: #### B MP3 #### [facility] [employer] [address] GFR/1.73 sq M predicted among blacks MDRD (S/P/Bld) [Vol rate/Area] mL/min/{1.73_m2} Normal >60 [facility] Work Phone: Comment on above: Performed By: #### B MP3 #### [facility] [employer] [address] Chloride [Moles/Vol] 98 mmol/L Normal 98-107 [facility] Work Phone: Comment on above: Performed By: #### B MP3 #### [facility] [employer] [address] Potassium [Moles/Vol] 3.8 mmol/L Normal 3.5-5.1 [facility] Work Phone: Comment on above: Performed By: #### B MP3 #### [facility] [employer] [address] Sodium [Moles/Vol] 129 mmol/L Low 135-145 [facility] Work Phone: Comment on above: Performed By: #### B MP3 #### [address] [address] EGFR IF NonAfrican Angolan >90.0 >60 mL/min [facility] Work Phone: Comment on above: KDIGO guidelines [...] Interpretation and review of laboratory results Abnormal [facility] Work Phone: Test Performed by [address] [address] [facility] Work Phone: Basic Metabolic Panelon 03-0 -2020 Calcium [Mass/Vol] 8.9 mg/dL Normal 8.4-10.4 [facility] Comment on above: Performed By: #### B MP3 #### [address] [address] Glucose [Mass/Vol] 93 mg/dL Normal 70-100 [facility] Comment on above: Performed By: #### B MP3 #### [address] [address] Urea nitrogen [Mass/Vol] 11 mg/dL Normal 7-20 [facility] Comment on above: Performed By: #### B MP3 #### [address] [address] Anion gap [Moles/Vol] 7 mmol/L Normal 3-13 [facility] Comment on above: Performed By: #### B MP3 #### [address] CO2 [Moles/Vol] 25 mmol/L Normal 22-30 [facility] Comment on above: Performed By: #### B MP3 #### [facility] [address] [place], [place] Creatinine [Mass/Vol] 0.42 mg/dL Low 0.52-1.25 [facility] Comment on above: Performed By: #### B MP3 #### [facility] [address] [place], [place] eGFR OTHER > 90.0 Normal >60 [facility] Comment on above: Result Comment: KDIG O [...] secretion. Performed By: #### B MP3 #### [facility] [address] [place], [place] GFR/1.73 sq M.predicted among blacks MDRD (S/P/Bld) [Vol rate/Area] mL/min/{1.73_m2} Normal >60 [facility] Comment on above: Performed By: #### B MP3 #### [facility] [address] [place], [place] Chloride [Moles/Vol] 96 mmol/L Low 98-107 [facility] Comment on above: Performed By: #### B MP3 #### [place] [address] [place] [place], [place] Potassium [Moles/Vol] 3.7 mmol/L Normal 3.5-5.1 [facility] Comment on above: Performed By: #### B MP3 #### [facility] [address] [place] [address] Sodium [Moles/Vol] 127 mmol/L Low 135-145 [facility] Comment on above: Performed By: #### B MP3 #### [facility] [address] [place] [address] Anion gap [Moles/Vol] 7 mmol/L 3 - 13 mmol/L [facility] Work Phone: Calcium [Mass/Vol] 8.9 mg/dL 8.4 - 10. 4 mg/dL [facility] Work Phone: Chloride [Moles/Vol] 96 mmol/L Low 98 - 107 mmol/L [facility] Work Phone: CO2 [Moles/Vol] 25 mmol/L 22 - 30 mmol/L [facility] Work Phone: Creatinine [Mass/Vol] 0.42 mg/dL Low 0.52 - 1.25 mg/dL [facility] Work Phone: EGFR IF NonAfrican Angolan >90.0 >60 mL/min [facility] Work Phone: Comment on above: KDIGO guidelines [...] MDRD (S/P/Bld) [Vol rate/Area] mL/min/{1.73_m2} >60 mL/min [facility] Work Phone: [phone] Glucose [Mass/Vol] 93 mg/dL 70 - 100 mg/dL [facility] Work Phone: [phone] Interpretation and review of laboratory results Abnormal [facility] Work Phone: [phone] Potassium [Moles/Vol] 3.7 mmol/L 3.5 - 5.1 mmol/L [facility] Work Phone: [phone] Sodium [Moles/Vol] 127 mmol/L Low 135 - 145 mmol/L [facility] Work Phone: [phone] Urea nitrogen [Mass/Vol] 11 mg/dL 7 - 20 mg/dL [facility] Work Phone: [phone] Test Performed by [facility], [address] [place] [address] [facility] Work Phone: [phone] Basic Metabolic Panelon 03-0 Anion gap [Moles/Vol] 6 mmol/L Normal 3-13 [facility] Comment on above: Performed By: #### M G3, PHOS3, HEMDF, BMP3M #### [place] [address] [place] [address] Calcium [Mass/Vol] 8.4 mg/dL Normal 8.4-10.4 [facility] Comment on above: Performed By: #### M G3, PHOS3, HEMDF, BMP3M #### [place] [address] [place] [address] CO2 [Moles/Vol] 24 mmol/L Normal 22-30 [facility] Comment on above: Performed By: #### M G3, PHOS3, HEMDF, BMP3M #### [place] [address] [place] [address] Glucose [Mass/Vol] 90 mg/dL Normal 70-100 [facility] Comment on above: Performed By: #### M G3, PHOS3, HEMDF, BMP3M #### [place] [address] [place] [address] Urea nitrogen [Mass/Vol] 9 mg/dL Normal 7-20 [facility] Comment on above: Performed By: #### M G3, PHOS3, HEMDF, BMP3M #### [address] Creatinine [Mass/Vol] 0.51 mg/dL Low 0.52-1.25 [facility] Comment on above: Performed By: #### M G3, PHOS3, HEMDF, BMP3M #### [address] eGFR OTHER > 90.0 Normal >60 [facility] Comment on above: Result Comment: KDIG O [...] #### M G3, PHOS3, HEMDF, BMP3M #### [address] GFR/1.73 sq M.predicted among blacks MDRD (S/P/Bld) [Vol rate/Area] mL/min/{1.73_m2} Normal >60 [facility] Comment on above: Performed By: #### M G3, PHOS3, HEMDF, BMP3M #### [address] Potassium [Moles/Vol] 3.7 mmol/L Normal 3.5-5.1 [facility] Comment on above: Performed By: #### M G3, PHOS3, HEMDF, BMP3M #### [address] Sodium [Moles/Vol] 125 mmol/L Low 135-145 [facility] Comment on above: Performed By: #### M G3, PHOS3, HEMDF, BMP3M #### [facility] [address] [place], [place] Chloride [Moles/Vol] 95 mmol/L Low 98-107 [facility] Comment on above: Performed By: #### M G3, PHOS3, HEMDF, BMP3M #### [facility] [address] [place], [place] Anion gap [Moles/Vol] 6 mmol/L 3 - 13 mmol/L [facility] Work Phone: Calcium [Mass/Vol] 8.4 mg/dL 8.4 - 10. 4 mg/dL [facility] Work Phone: Chloride [Moles/Vol] 95 mmol/L Low 98 - 107 mmol/L [facility] Work Phone: CO2 [Moles/Vol] 24 mmol/L 22 - 30 mmol/L [facility] Work Phone: Creatinine [Mass/Vol] 0.51 mg/dL Low 0.52 - 1.25 mg/dL [facility] Work Phone: EGFR IF NonAfrican [place]olan >90.0 >60 mL/min [facility] Work Phone: Comment on above: KDIGO guidelines [...] MDRD (S/P/Bld) [Vol rate/Area] mL/min/{1.73_m2} >60 mL/min [facility] Work Phone: [phone] Glucose [Mass/Vol] 90 mg/dL 70 - 100 mg/dL [facility] Work Phone: [phone] Interpretation and review of laboratory results Abnormal [facility] Work Phone: [phone] Potassium [Moles/Vol] 3.7 mmol/L 3.5 - 5.1 mmol/L [facility] Work Phone: [phone] Sodium [Moles/Vol] 125 mmol/L Low 135 - 145 mmol/L [facility] Work Phone: [phone] Urea nitrogen [Mass/Vol] 9 mg/dL 7 - 20 mg/dL [facility] Work Phone: [phone] Magnesiumon 12-16-2020 Magnesium [Mass/Vol] 1.9 mg/dL Normal 1.6-2.3 [facility] [place] Comment on above: Performed By: #### M G3, PHOS3, HEMDF, BMP3M #### [employer] [facility] [address] [place] [address] Magnesium [Mass/Vol] 1.9 mg/dL 1.6 - 2.3 mg/dL [facility] Work Phone: [phone] Osmolalityon 12-16-2020 Interpretation and review of laboratory results Abnormal [facility] Work Phone: [phone] Serum Osmolality 263 mosm/kg Low 280 - 300 mosm/kg [facility] Work Phone: [phone] Test Performed by [employer], [facility] [place] [address] [facility] Work Phone: [phone] Osmolality,Serumon Osmolality,Serum 263 mosm/kg Low 280-300 [facility] Comment on above: Performed By: #### M G3, PHOS3, HEMDF, BMP3M #### [employer] [facility] [place] [address] Otheron 12-16-2020 Test Performed by [employer], [facility] [place] [address] [facility] Work Phone: [phone] BASIC METABOLIC PANELon 03-0 Anion gap [Moles/Vol] 9 mmol/L 3 - 13 mmol/L [facility] Work Phone: [phone] Calcium [Mass/Vol] 8.9 mg/dL 8.4 - 10. 4 mg/dL [facility] Work Phone: [phone] Chloride [Moles/Vol] 96 mmol/L Low 98 - 107 mmol/L [facility] Work Phone: [phone] CO2 [Moles/Vol] 21 mmol/L Low 22 - 30 mmol/L [facility] Work Phone: [phone] Creatinine [Mass/Vol] 0.46 mg/dL Low 0.52 - 1.25 mg/dL [facility] Work Phone: [phone] EGFR IF NonAfrican [place]olan >90.0 >60 mL/min [facility] Work Phone: [phone] Comment on above: KDIGO guidelines pro vide [...] rate/Area] mL/min/{1.73_m2} >60 mL/min [facility] Work Phone: [phone] Glucose [Mass/Vol] 113 mg/dL High 70 - 100 mg/dL [facility] Work Phone: [phone] Interpretation and review of laboratory results Abnormal [facility] Work Phone: Potassium [Moles/Vol] 4.1 mmol/L 3.5 - 5.1 mmol/L [facility] Work Phone: Sodium [Moles/Vol] 126 mmol/L Low 135 - 145 mmol/L [facility] Work Phone: Urea nitrogen [Mass/Vol] 7 mg/dL 7 - 20 mg/dL [facility] Work Phone: Test Performed by [facility] [employer] [facility], [facility] [place] [address] [facility] Work Phone: Basic Metabolic Panelon 03-0 -2020 Calcium [Mass/Vol] 8.9 mg/dL Normal 8.4-10.4 [facility] Comment on above: Performed By: #### B MP3 #### [address] [address] [place] [address] Glucose [Mass/Vol] 113 mg/dL High 70-100 [facility] Comment on above: Performed By: #### B MP3 #### [facility] [place] [facility] [place] [address] Urea nitrogen [Mass/Vol] 7 mg/dL Normal 7-20 [facility] Comment on above: Performed By: #### B MP3 #### [address] [address] [place] [address] Anion gap [Moles/Vol] 9 mmol/L Normal 3-13 [facility] Comment on above: Performed By: #### B MP3 #### [facility] [employer] [place] [address] [place] [address] CO2 [Moles/Vol] 21 mmol/L Low 22-30 [facility] Comment on above: Performed By: #### B MP3 #### [facility] [employer] [place] [address] [place] [address] Creatinine [Mass/Vol] 0.46 mg/dL Low 0.52-1.25 [facility] Comment on above: Performed By: #### B MP3 #### [address] [address] [place] [address] eGFR OTHER > 90.0 Normal >60 [facility] Comment on above: Result Comment: KDIG O [...] secretion. Performed By: #### B MP3 #### [place] [address] [address] [place], [place] GFR/1.73 sq M.predicted among blacks MDRD (S/P/Bld) [Vol rate/Area] mL/min/{1.73_m2} Normal >60 [facility] Comment on above: Performed By: #### B MP3 #### [place] [address] [address] [place], [place] Potassium [Moles/Vol] 4.1 mmol/L Normal 3.5-5.1 [facility] Comment on above: Performed By: #### B MP3 #### [place] [address] [address] [place], [place] Chloride [Moles/Vol] 96 mmol/L Low 98-107 [facility] Comment on above: Performed By: #### B MP3 #### [place] [address] [address] [place], [place] Sodium [Moles/Vol] 126 mmol/L Low 135-145 [facility] Comment on above: Performed By: #### B MP3 #### [address] [place], [place] Anion gap [Moles/Vol] 6 mmol/L Normal 3-13 [facility] Comment on above: Performed By: #### B MP3 #### [facility] [address] [place] [address] Calcium [Mass/Vol] 8.4 mg/dL Normal 8.4-10.4 [facility] Comment on above: Performed By: #### B MP3 #### [facility] [address] [place] [address] CO2 [Moles/Vol] 22 mmol/L Normal 22-30 [facility] Comment on above: Performed By: #### B MP3 #### [facility] [address] [place] [address] Glucose [Mass/Vol] 91 mg/dL Normal 70-100 [facility] Comment on above: Performed By: #### B MP3 #### [facility] [address] [place] [address] Urea nitrogen [Mass/Vol] 7 mg/dL Normal 7-20 [facility] Comment on above: Performed By: #### B MP3 #### [facility] [address] [place] [address] Creatinine [Mass/Vol] 0.42 mg/dL Low 0.52-1.25 [facility] Comment on above: Performed By: #### B MP3 #### [facility] [address] [place] [address] eGFR OTHER > 90.0 Normal >60 [facility] Comment on above: Result Comment: KDIG O [...] secretion. Performed By: #### B MP3 #### [facility] [address] [place], [place] GFR/1.73 sq M.predicted among blacks MDRD (S/P/Bld) [Vol rate/Area] mL/min/{1.73_m2} Normal >60 [facility] Comment on above: Performed By: #### B MP3 #### [facility] [address] [place], [place] Potassium [Moles/Vol] 3.6 mmol/L Normal 3.5-5.1 [facility] Comment on above: Performed By: #### B MP3 #### [facility] [address] [place], [place] Sodium [Moles/Vol] 125 mmol/L Low 135-145 [facility] Comment on above: Performed By: #### B MP3 #### [facility] [address] [place], [place] Chloride [Moles/Vol] 96 mmol/L Low 98-107 [facility] Comment on above: Performed By: #### B MP3 #### [facility] [address], [place] Anion gap [Moles/Vol] 6 mmol/L 3 - 13 mmol/L [facility] Work Phone: Calcium [Mass/Vol] 8.4 mg/dL 8.4 - 10. 4 mg/dL [facility] Work Phone: Chloride [Moles/Vol] 96 mmol/L Low 98 - 107 mmol/L [facility] Work Phone: CO2 [Moles/Vol] 22 mmol/L 22 - 30 mmol/L [facility] Work Phone: Creatinine [Mass/Vol] 0.42 mg/dL Low 0.52 - 1.25 mg/dL [facility] Work Phone: EGFR IF NonAfrican Angolan >90.0 >60 mL/min [facility] Work Phone: Comment on above: KDIGO guidelines [...] MDRD (S/P/Bld) [Vol rate/Area] mL/min/{1.73_m2} >60 mL/min [facility] Work Phone: [phone] Glucose [Mass/Vol] 91 mg/dL 70 - 100 mg/dL [facility] Work Phone: [phone] Potassium [Moles/Vol] 3.6 mmol/L 3.5 - 5.1 mmol/L [facility] Work Phone: [phone] Sodium [Moles/Vol] 125 mmol/L Low 135 - 145 mmol/L [facility] Work Phone: [phone] Urea nitrogen [Mass/Vol] 7 mg/dL 7 - 20 mg/dL [facility] Work Phone: [phone] Magnesiumon 12-15-2020 Magnesium [Mass/Vol] 1.5 mg/dL Low 1.6-2.3 [facility] Comment on above: Performed By: #### B MP3 #### [facility] [address] [place] [phone] Magnesium [Mass/Vol] 1.5 mg/dL Low 1.6 - 2.3 mg/dL [facility] Work Phone: Osmolality, Urineon 12-16-19 21 Interpretation and review of laboratory results Abnormal [facility] Work Phone: [phone] Osmolality (U) [Osmolality] 244 mosm/kg Low 300 - 1000 mosm/kg [facility] Work Phone: Test Performed by [facility] [facility], [address] [place] [phone] [place] [address] Work Phone: Osmolality,Urineon Osmolality,Urine 244 mosm/kg Low 300-1000 [facility] Comment on above: Performed By: #### B MP3 #### [facility] [address] [place] [phone] Otheron 12-15-2020 Interpretation and review of laboratory results Abnormal [facility] Work Phone: Test Performed by [facility], [address] [place] [phone] [place] [address] Work Phone: Sodium, Ur Randomon 12-16-19 Sodium [Moles/Vol] 75 mmol/L Normal 30-90 [facility] Comment on above: Performed By: #### M G3, PHOS3, HEMDF, BMP3M #### [facility] [address] [place] [phone] Sodium, Urine, Randomon Sodium (U) [Moles/Vol] 75 mmol/L 30 - 90 mmol/L [facility] Work Phone: Test Performed by [facility] [facility], [address] [place] [phone] [place] [address] Work Phone: Acute Hepatitis Panelon Hep B Core IgM Not detected Normal Not-Detected [facility] Comment on above: Performed By: #### M G3, PHOS3, HEMDF, BMP3M #### [facility] [address] [place] [phone] Hep A Virus Ab,IgM Not detected Normal Not-Detected [facility] Comment on above: Performed By: #### M G3, PHOS3, HEMDF, BMP3M #### [employer] [place] [address] [place] [phone] Hep C Antibody Not detected Normal Not-Detected [facility] Comment on above: Result Comment: Lucia ents with DETECTED Hepatitis C Ab results should have a new specimen submitted for supplemental testing with a Hepatitis C Quantitative RNA assay (viral load), if clinically indicated. Performed By: #### M G3, PHOS3, HEMDF, BMP3M #### [facility] [address] [place] [address] Hep B Surface Ag Not detected Normal Not-Detected [facility] Comment on above: Performed By: #### M G3, PHOS3, HEMDF, BMP3M #### [employer] [address] [place] [address] CBC Auto Differentialon 03-0 Absolute Baso # 0.1 10*3/uL 0.0 - 0.2 10*3/uL [facility] Work Phone: 1 22 Absolute Neut # 3.5 10*3/uL 1.8 - 7.0 10*3/uL [facility] Work Phone: 1 22 Basophils/100 WBC (Bld) 1.3 % 0.0 - 2.0 % [facility] Work Phone: Eosinophils (Bld) [#/Vol] 0.1 10*3/uL 0.0 - 0.5 10*3/uL [facility] Work Phone: 1 22 Eosinophils/100 WBC (Bld) 1.7 % 1.0 - 6.0 % [facility] Work Phone: 1 Erythrocyte distribution width (RBC) [Ratio] 14.6 % High 11.5 - 14.5 % [facility] Work Phone: 22 Granulocytes/100 WBC (Bld) 60.9 % 40.0 - 80.0 % [facility] Work Phone: Hematocrit (Bld) [Volume fraction] 34.9 % Low 35.0 - 47.0 % [facility] Work Phone: 22 Hemoglobin (Bld) [Mass/Vol] 11.9 g/dL 11.7 - 16.0 g/dL [facility] Work Phone: 22 Interpretation and review of laboratory results Abnormal [facility] Work Phone: Lymphocytes (Bld) [#/Vol] 1.5 10*3/uL 1.0 - 4.3 10*3/uL [facility] Work Phone: 22 Lymphocytes/100 WBC (Bld) 26.5 % 20.0 - 40.0 % [employer] Work Phone: 1 MCH (RBC) [Entitic mass] 34.5 pg High 26.0 - 34.0 pg [facility] Work Phone: 1() MCHC (RBC) [Mass/Vol] 34.1 % 32.0 - 36.0 % [facility] Work Phone: 1) MCV (RBC) [Entitic vol] 101.2 fL High 79.0 - 98.0 fL [facility] Work Phone: 1() Monocytes (Bld) [#/Vol] 0.6 10*3/uL 0.0 - 0.8 10*3/uL [employer] Work Phone: 1) Monocytes/100 WBC (Bld) 9.6 % 2.0 - 10.0 % [employer] Work Phone: 1) Platelet mean volume (Bld) [Entitic vol] 9.0 fL 7.4 - 10.4 fL [employer] Work Phone: 1() Platelets (Bld) [#/Vol] 168 10*3/uL 140 - 440 10*3/uL [employer] Work Phone: 1) RBC (Bld) [#/Vol] 3.45 10*6/uL Low 3.80 - 5.2 0 10*6/uL [employer] Work Phone: 1) WBC (Bld) [#/Vol] 5.8 10*3/uL 3.6 - 10.7 10*3/uL [employer] Work Phone: 1 Test Performed by [facility] [facility], [address] [place] [id number] [facility] Work Phone: 1 Comp Metabolic Panelon 12-14 ALP [Catalytic activity/Vol] 67 U/L Normal 38-126 [facility] Comment on above: Performed By: #### M G3, PHOS3, HEMDF, BMP3M #### [facility] [address] [place] [phone] ALT [Catalytic activity/Vol] 24 U/L Normal 0-34 [facility] Comment on above: Result Comment: The ALT test is performed by an updated assay method. Please note that the reference intervals have been changed and are now sex specific. Performed By: #### M G3, PHOS3, HEMDF, BMP3M #### [facility] [address], [place] Calcium [Mass/Vol] 8.5 mg/dL Normal 8.4-10.4 [facility] Comment on above: Performed By: #### M G3, PHOS3, HEMDF, BMP3M #### [place] [address], [place] Glucose [Mass/Vol] 87 mg/dL Normal 70-100 [facility] Comment on above: Performed By: #### M G3, PHOS3, HEMDF, BMP3M #### [place] [address], [place] Protein [Mass/Vol] 5.7 g/dL Low 6.3-8.2 [facility] Comment on above: Performed By: #### M G3, PHOS3, HEMDF, BMP3M #### [place] [address], [place] Urea nitrogen [Mass/Vol] 13 mg/dL Normal 7-20 [facility] Comment on above: Performed By: #### M G3, PHOS3, HEMDF, BMP3M #### [place] [address], [place] Anion gap [Moles/Vol] 4 mmol/L Normal 3-13 [facility] Comment on above: Performed By: #### M G3, PHOS3, HEMDF, BMP3M #### [facility] [address], [place] AST [Catalytic activity/Vol] 41 U/L Normal 15-46 [facility] Comment on above: Performed By: #### M G3, PHOS3, HEMDF, BMP3M #### [place] [address], [place] Bilirubin [Mass/Vol] 0.6 mg/dL Normal 0.2-1.3 [facility] Comment on above: Performed By: #### M G3, PHOS3, HEMDF, BMP3M #### [facility] [address], [place] CO2 [Moles/Vol] 24 mmol/L Normal 22-30 [facility] Comment on above: Performed By: #### M G3, PHOS3, HEMDF, BMP3M #### [facility] [address] [place], [place] Creatinine [Mass/Vol] 0.36 mg/dL Low 0.52-1.25 [facility] Comment on above: Performed By: #### M G3, PHOS3, HEMDF, BMP3M #### [facility] [address], [place] eGFR OTHER > 90.0 Normal >60 [facility] Comment on above: Result Comment: KDIG O [...] #### M G3, PHOS3, HEMDF, BMP3M #### [facility] [address], [place] GFR/1.73 sq M.predicted among blacks MDRD (S/P/Bld) [Vol rate/Area] mL/min/{1.73_m2} Normal >60 [facility] Comment on above: Performed By: #### M G3, PHOS3, HEMDF, BMP3M #### [facility] [address], [place] Chloride [Moles/Vol] 102 mmol/L Normal 98-107 [facility] Comment on above: Performed By: #### M G3, PHOS3, HEMDF, BMP3M #### [place] [address], [place] Potassium [Moles/Vol] 3.3 mmol/L Low 3.5-5.1 [facility] Comment on above: Performed By: #### M G3, PHOS3, HEMDF, BMP3M #### [place] [address], [place] Sodium [Moles/Vol] 130 mmol/L Low 135-145 [facility] Comment on above: Performed By: #### M G3, PHOS3, HEMDF, BMP3M #### [place] [address], [place] Albumin [Mass/Vol] 3.0 g/dL Low 3.5-5.0 [facility] Comment on above: Performed By: #### M G3, PHOS3, HEMDF, BMP3M #### [place] [address], [place] Comprehensive Metabolic Pane lexa 12-14-2020 Albumin [Mass/Vol] 3.0 g/dL Low 3.5 - 5.0 g/dL [facility] Work Phone: [phone] ALP [Catalytic activity/Vol] 67 U/L 38 - 126 U/L [facility] Work Phone: [phone] ALT [Catalytic activity/Vol] 24 U/L 0 - 34 U/L [facility] Work Phone: [phone] Comment on above: The ALT test is perf ormed by an updated assay method. Please note that the reference intervals have been changed and are now sex specific. Anion gap [Moles/Vol] 4 mmol/L 3 - 13 mmol/L [facility] Work Phone: [phone] AST [Catalytic activity/Vol] 41 U/L 15 - 46 U/L [facility] Work Phone: [phone] Bilirubin Ql (U) 0.6 mg/dL 0.2 - 1.3 mg/dL [facility] Work Phone: [phone] Calcium [Mass/Vol] 8.5 mg/dL 8.4 - 10. 4 mg/dL [facility] Work Phone: [phone] Chloride [Moles/Vol] 102 mmol/L 98 - 107 mmol/L [facility] Work Phone: [phone] [Moles/Vol] 24 mmol/L 22 - 30 mmol/L [facility] Work Phone: [phone] Creatinine [Mass/Vol] 0.36 mg/dL Low 0.52 - 1.25 mg/dL [facility] Work Phone: [phone] EGFR IF NonAfrican Angolan >90.0 >60 mL/min [facility] Work Phone: [phone] Comment on above: KDIGO guidelines pro vide [...] MDRD (S/P/Bld) [Vol rate/Area] mL/min/{1.73_m2} >60 mL/min [facility] Work Phone: Glucose [Mass/Vol] 87 mg/dL 70 - 100 mg/dL [facility] Work Phone: [phone] Potassium [Moles/Vol] 3.3 mmol/L Low 3.5 - 5.1 mmol/L [facility] Work Phone: [phone] Protein [Mass/Vol] 5.7 g/dL Low 6.3 - 8.2 g/dL [facility] Work Phone: [phone] Sodium [Moles/Vol] 130 mmol/L Low 135 - 145 mmol/L [facility] Work Phone: [phone] Urea nitrogen [Mass/Vol] 13 mg/dL 7 - 20 mg/dL [facility] Work Phone: [phone] Folateon 12-14-2020 Folate 14.4 ng/mL Normal 2.8-20.0 [facility] Comment on above: Performed By: #### M G3, PHOS3, HEMDF, BMP3M #### [facility] [place] [address] Folate 14.4 ng/mL 2.8 - 20.0 ng/mL [facility] Work Phone: [phone] Test Performed by [facility], [address] [place] [phone] [place] [address] Work Phone: [phone] Hemogram w/ Autodiffon 12-14 Abs Baso Cnt 0.1 10*3/uL Normal 0.0-0.2 [facility] Comment on above: Performed By: #### M G3, PHOS3, HEMDF, BMP3M #### [facility] [place] [address] Abs Neutrophile Cnt 3.5 10*3/uL Normal 1.8-7.0 [facility] Comment on above: Performed By: #### M G3, PHOS3, HEMDF, BMP3M #### [facility] [facility] [place] [address] Basophils/100 WBC (Bld) 1.3 % Normal 0.0-2.0 [facility] Comment on above: Performed By: #### M G3, PHOS3, HEMDF, BMP3M #### [facility] [place] [address] Eosinophils (Bld) [#/Vol] 0.1 10*3/uL Normal 0.0-0.5 [facility] Comment on above: Performed By: #### M G3, PHOS3, HEMDF, BMP3M #### [employer] [place] [facility] [place] [address] Eosinophils/100 WBC (Bld) 1.7 % Normal 1.0-6.0 [facility] Comment on above: Performed By: #### M G3, PHOS3, HEMDF, BMP3M #### [place] [address] [address], [place] Erythrocyte distribution width (RBC) [Ratio] 14.6 % High 11.5-14.5 [facility] Comment on above: Performed By: #### M G3, PHOS3, HEMDF, BMP3M #### [place] [address] [address], [place] Granulocytes/100 WBC (Bld) 60.9 % Normal 40.0-80.0 [facility] Comment on above: Performed By: #### M G3, PHOS3, HEMDF, BMP3M #### [place] [address] [address], [place] Hematocrit (Bld) [Volume fraction] 34.9 % Low 35.0-47.0 [facility] Comment on above: Performed By: #### M G3, PHOS3, HEMDF, BMP3M #### [place] [address] [address], [place] Hemoglobin (Bld) [Mass/Vol] 11.9 g/dL Normal 11.7-16.0 [facility] Comment on above: Performed By: #### M G3, PHOS3, HEMDF, BMP3M #### [place] [address] [address], [place] Lymphocytes (Bld) [#/Vol] 1.5 10*3/uL Normal 1.0-4.3 [facility] Comment on above: Performed By: #### M G3, PHOS3, HEMDF, BMP3M #### [place] [address] [address], [place] Lymphocytes/100 WBC (Bld) 26.5 % Normal 20.0-40.0 [facility] Comment on above: Performed By: #### M G3, PHOS3, HEMDF, BMP3M #### [place] [address] [address], [place] MCH (RBC) [Entitic mass] 34.5 pg High 26.0-34.0 [facility] Comment on above: Performed By: #### M G3, PHOS3, HEMDF, BMP3M #### [facility] [address], [place] MCHC 34.1 % Normal 32.0-36.0 [facility] Comment on above: Performed By: #### M G3, PHOS3, HEMDF, BMP3M #### [facility] [address], [place] MCV (RBC) [Entitic vol] 101.2 fL High 79.0-98.0 [facility] Comment on above: Performed By: #### M G3, PHOS3, HEMDF, BMP3M #### [place] [address] [address], [place] Monocytes (Bld) [#/Vol] 0.6 10*3/uL Normal 0.0-0.8 [facility] Comment on above: Performed By: #### M G3, PHOS3, HEMDF, BMP3M #### [place] [address] [address], [place] Monocytes/100 WBC (Bld) 9.6 % Normal 2.0-10.0 [facility] Comment on above: Performed By: #### M G3, PHOS3, HEMDF, BMP3M #### [place] [address] [address], [place] Platelet mean volume (Bld) [Entitic vol] 9.0 fL Normal 7.4-10.4 [facility] Comment on above: Performed By: #### M G3, PHOS3, HEMDF, BMP3M #### [place] [address] [address], [place] Platelets (Bld) [#/Vol] 168 10*3/uL Normal 140-440 [facility] Comment on above: Performed By: #### M G3, PHOS3, HEMDF, BMP3M #### [place] [address] [place], [place] RBC (Bld) [#/Vol] 3.45 10*6/uL Low 3.80-5.20 [facility] Comment on above: Performed By: #### M G3, PHOS3, HEMDF, BMP3M #### [address] WBC (Bld) [#/Vol] 5.8 10*3/uL Normal 3.6-10.7 [facility] Comment on above: Performed By: #### M G3, PHOS3, HEMDF, BMP3M #### [address] [phone] Hepatitis Panel, Acuteon HAV IgM IA Qn (S) NOT DETECTED Not-Detected NA [facility] Work Phone: [phone] Hep B Core Ab, IgM NOT DETECTED Not-Detected NA [facility] Work Phone: [phone] Hepatitis B Surface Ag NOT DETECTED Not-Detected NA [facility] Work Phone: [phone] Hepatitis C Ab NOT DETECTED Not-Detected NA [facility] Work Phone: [phone] Comment on above: Patients with DETECT ED Hepatitis C Ab results should have a new specimen submitted for supplemental testing with a Hepatitis C Quantitative RNA assay (viral load), if clinically indicated. Test Performed by [facility], [address] [place] [address] [facility] Work Phone: [phone] Magnesiumon 12-14-2020 Magnesium [Mass/Vol] 1.3 mg/dL Low 1.6-2.3 [facility] Comment on above: Performed By: #### M G3, PHOS3, HEMDF, BMP3M #### [address] Magnesium [Mass/Vol] 1.3 mg/dL Low 1.6 - 2.3 mg/dL [facility] Work Phone: [phone] Otheron 12-14-2020 Interpretation and review of laboratory results Abnormal [facility] Work Phone: [phone] Test Performed by [facility] [place], [address] [place] [phone] [place] [address] Work Phone: CBC auto differentialon 03-0 Absolute Baso # 0.1 10*3/uL 0.0 - 0.2 10*3/uL [facility] Work Phone: [phone] Absolute Neut # 3.9 10*3/uL 1.8 - 7.0 10*3/uL [facility] Work Phone: [phone] 22 Basophils/100 WBC (Bld) 1.1 % 0.0 - 2.0 % [facility] Work Phone: Eosinophils (Bld) [#/Vol] 0.0 10*3/uL 0.0 - 0.5 10*3/uL [facility] Work Phone: 22 Eosinophils/100 WBC (Bld) 0.6 % Low 1.0 - 6.0 % [facility] Work Phone: Erythrocyte distribution width (RBC) [Ratio] 14.7 % High 11.5 - 14.5 % [employer] Work Phone: Granulocytes/100 WBC (Bld) 66.9 % 40.0 - 80.0 % [employer] Work Phone: Hematocrit (Bld) [Volume fraction] 35.6 % 35.0 - 47.0 % [employer] Work Phone: Hemoglobin (Bld) [Mass/Vol] 12.1 g/dL 11.7 - 16.0 g/dL [employer] Work Phone: Interpretation and review of laboratory results Abnormal [employer] Phone: Lymphocytes (Bld) [#/Vol] 1.2 10*3/uL 1.0 - 4.3 10*3/uL [facility] Work Phone: 22 Lymphocytes/100 WBC (Bld) 20.6 % 20.0 - 40.0 % [facility] Work Phone: MCH (RBC) [Entitic mass] 34.0 pg 26.0 - 34.0 pg [facility] Work Phone: MCHC (RBC) [Mass/Vol] 33.9 % 32.0 - 36.0 % [facility] [facility] Work Phone: MCV (RBC) [Entitic vol] 100.2 fL High 79.0 - 98.0 fL [facility] Work Phone: Monocytes (Bld) [#/Vol] 0.6 10*3/uL 0.0 - 0.8 10*3/uL [employer] Work Phone: Monocytes/100 WBC (Bld) 10.8 % High 2.0 - 10.0 % [employer] Work Phone: Platelet mean volume (Bld) [Entitic vol] 8.8 fL 7.4 - 10.4 fL [employer] Work Phone: Platelets (Bld) [#/Vol] 185 10*3/uL 140 - 440 10*3/uL [employer] Work Phone: [phone] RBC (Bld) [#/Vol] 3.55 10*6/uL Low 3.80 - 5.2 0 10*6/uL [employer] Work Phone: WBC (Bld) [#/Vol] 5.8 10*3/uL 3.6 - 10.7 10*3/uL [facility] Work Phone: [phone] Test Performed by [facility] [facility], [address] [place] [id number] [place], [place] [address] Work Phone: [phone] CR Abdomen APon 12-13-2020 CR Abdomen AP Patient Name: JAZMIN JOHNSON Diagnostic Radiology ACCESSION EXAM DATE/TIME PROCEDURE ORDERING PROVIDER [id number] 12/13/2020 09:25 EST CR Abdomen AP DO RUEL, NINOSKA KOWALSKI CPT code 91077 Reason For Exam (CR Abdomen AP) MRI [...] Dictated: 12/13/2020 9:25 am Dictating Physician: MD JOHN, VIANEY Signed Date and Time: 12/13/2020 9:28 am Signed by: MD JOHN, VIANEY Transcribed Date and Time: 12/13/2020 9:25 Normal [facility] CULTURE URINEon 12-13-2020 CULTURE URINE CULTURE URINE --> Status: F No growth (<1,000 CFU/ml). Normal [facility] Comment on above: Performed By: #### A PTT, FIBGN, LDH3, DDI2, B12, CMP3, FERR3, HEMDF, CRP2, PT, FOLT3 #### [facility] [address], [place] #### [id number] #### [facility] [address] [place] [address] Comp Panel with Mg Reflexon 12-13-2020 ALP [Catalytic activity/Vol] 77 U/L Normal 38-126 [facility] Comment on above: Result Comment: Slig htly hemolysed, interpret with caution. Performed By: #### B MP3 #### [facility] [address], [place] ALT [Catalytic activity/Vol] 36 U/L High 0-34 [facility] Comment on above: Result Comment: The ALT test is performed by an updated assay method. Please note that the reference intervals have been changed and are now sex specific. Performed By: #### B MP3 #### [facility] [address], [place] Anion gap [Moles/Vol] 7 mmol/L Normal 3-13 [facility] Comment on above: Performed By: #### B MP3 #### [facility] [address] [place], [place] AST [Catalytic activity/Vol] 76 U/L High 15-46 [facility] Comment on above: Result Comment: Slig htly hemolysed, interpret with caution. Performed By: #### B MP3 #### [facility] [address], [place] Calcium [Mass/Vol] 8.8 mg/dL Normal 8.4-10.4 [facility] Comment on above: Performed By: #### B MP3 #### [facility] [address], [place] CO2 [Moles/Vol] 26 mmol/L Normal 22-30 [facility] Comment on above: Performed By: #### B MP3 #### [facility] [address], [place] Glucose [Mass/Vol] 100 mg/dL Normal 70-100 [facility] Comment on above: Performed By: #### B MP3 #### [facility] [address], [place] Protein [Mass/Vol] 6.5 g/dL Normal 6.3-8.2 [facility] Comment on above: Performed By: #### B MP3 #### [facility] [address], [place] Urea nitrogen [Mass/Vol] 13 mg/dL Normal 7-20 [facility] Comment on above: Performed By: #### B MP3 #### [facility] [address], [place] Bilirubin [Mass/Vol] 1.0 mg/dL Normal 0.2-1.3 [facility] Comment on above: Performed By: #### B MP3 #### [facility] [address], [place] Creatinine [Mass/Vol] 0.38 mg/dL Low 0.52-1.25 [facility] Comment on above: Performed By: #### B MP3 #### [facility] [address], [place] eGFR OTHER > 90.0 Normal >60 [facility] Comment on above: Result Comment: KDIG O [...] secretion. Performed By: #### B MP3 #### [facility] [address], [place] GFR/1.73 sq M.predicted among blacks MDRD (S/P/Bld) [Vol rate/Area] mL/min/{1.73_m2} Normal >60 [facility] Comment on above: Performed By: #### B MP3 #### [facility] [address], [place] Albumin [Mass/Vol] 3.6 g/dL Normal 3.5-5.0 [facility] Comment on above: Performed By: #### B MP3 #### [facility] [address], [place] Chloride [Moles/Vol] 97 mmol/L Low 98-107 [facility] Comment on above: Performed By: #### B MP3 #### [facility] [address], [place] Potassium [Moles/Vol] 3.7 mmol/L Normal 3.5-5.1 [facility] Comment on above: Result Comment: Slig htly hemolysed, interpret with caution. Performed By: #### B MP3 #### [facility] [address], [place] Sodium [Moles/Vol] 130 mmol/L Low 135-145 [facility] Comment on above: Performed By: #### B MP3 #### [facility] [address], [place] Comprehensive Metabolic Pane l w/ Reflex to MGon 12-13-2020 Albumin [Mass/Vol] 3.6 g/dL 3.5 - 5.0 g/dL [facility] Work Phone: ALP [Catalytic activity/Vol] 77 U/L 38 - 126 U/L [facility] Work Phone: Comment on above: Slightly hemolysed, interpret with caution. ALT [Catalytic activity/Vol] 36 U/L High 0 - 34 U/L [facility] Work Phone: [phone] Comment on above: The ALT test is perf ormed by an updated assay method. Please note that the reference intervals have been changed and are now sex specific. Anion gap [Moles/Vol] 7 mmol/L 3 - 13 mmol/L [facility] Work Phone: [phone] AST [Catalytic activity/Vol] 76 U/L High 15 - 46 U/L [facility] Work Phone: [phone] Comment on above: Slightly hemolysed, interpret with caution. Bilirubin Ql (U) 1.0 mg/dL 0.2 - 1.3 mg/dL [facility] Work Phone: [phone] Calcium [Mass/Vol] 8.8 mg/dL 8.4 - 10. 4 mg/dL [facility] Work Phone: [phone] Chloride [Moles/Vol] 97 mmol/L Low 98 - 107 mmol/L [facility] Work Phone: [phone] CO2 [Moles/Vol] 26 mmol/L 22 - 30 mmol/L [facility] Work Phone: [phone] Creatinine [Mass/Vol] 0.38 mg/dL Low 0.52 - 1.25 mg/dL [facility] Work Phone: [phone] EGFR IF NonAfrican Angolan >90.0 >60 mL/min [facility] Work Phone: Comment on above: KDIGO guidelines [...] MDRD (S/P/Bld) [Vol rate/Area] mL/min/{1.73_m2} >60 mL/min [facility] Work Phone: [phone] Glucose [Mass/Vol] 100 mg/dL 70 - 100 mg/dL [facility] Work Phone: Interpretation and review of laboratory results Abnormal [facility] Work Phone: Potassium [Moles/Vol] 3.7 mmol/L 3.5 - 5.1 mmol/L [facility] Work Phone: Comment on above: Slightly hemolysed, interpret with caution. Protein [Mass/Vol] 6.5 g/dL 6.3 - 8.2 g/dL [facility] Work Phone: Sodium [Moles/Vol] 130 mmol/L Low 135 - 145 mmol/L [facility] Work Phone: [phone] [phone] nitrogen [Mass/Vol] 13 mg/dL 7 - 20 mg/dL [facility] Work Phone: [phone] Test Performed by [facility] [employer] [place] [address] [facility] Work Phone: [phone] Culture, Urineon 12-13-2020 Bacteria identified Cx Nom (U) No growth (<1,000 CFU/ml). [facility] Work Phone: [phone] Test Performed by [employer] [facility], [facility] [employer] [place] [address] [facility] Work Phone: [phone] EKG 12 Lead - Chest Painon 0 12-13-2020 [employer] [facility] Test Date: 2020-12-12 Pat Name: Jazmin Johnson Department: [facility] Room: 1334 Gender: F [place]: OLAF : 1950 Requested By: JACK MACHUCA Order Number: [id number] [place] MD: Pepe Donaldson Measurements Intervals Stickney Rate: 94 P: 28 ID: [id number] QRS: -26 QRSD: 105 T: 61 QT: 358 QTc: 448 Interpretive Statements Sinus rhythm Borderline left axis deviation Low voltage, precordial leads Electronically Signed On 12-13-2020 8:30:57 EST by Pepe MÁRQUEZ Work Phone: [place], [facility] Incoming Cardiology Results From [facility] - 12/13/2020 8:31 AM EST [facility] Test Date: 2020-12-12 Pat Name: Jazmin Johnson Department: [facility] Room: [facility] Gender: F [place]: OLAF : 1950 Requested By: JACK MACHUCA Order Number: [id number] [place] MD: Pepe Donaldson Measurements Intervals [place]ney Rate: 94 P: 28 ID: [id number] QRS: -26 QRSD: 105 T: 61 QT: 358 QTc: 448 Interpretive Statements Sinus rhythm Borderline left axis deviation Low voltage, precordial leads Electronically Signed On 12-13-2020 8:30:57 EST by Pepe MÁRQUEZ Work Phone: Hemogram w/ Autodiffon 12-13 Abs Baso Cnt 0.1 10*3/uL Normal 0.0-0.2 [facility] Comment on above: Performed By: #### B MP3 #### [facility] [employer] [place] [address], [place] Abs Neutrophile Cnt 3.9 10*3/uL Normal 1.8-7.0 [facility] Comment on above: Performed By: #### B MP3 #### [facility] [employer] [facility] [address] [place] [address] Basophils/100 WBC (Bld) 1.1 % Normal 0.0-2.0 [facility] Comment on above: Performed By: #### B MP3 #### [facility] [employer] [facility] [address] [place] [address] Eosinophils (Bld) [#/Vol] 0.0 10*3/uL Normal 0.0-0.5 [facility] Comment on above: Performed By: #### B MP3 #### [facility] [employer] [facility] [address] [place] [address] Eosinophils/100 WBC (Bld) 0.6 % Low 1.0-6.0 [facility] Comment on above: Performed By: #### B MP3 #### [facility] [address], [place] Erythrocyte distribution width (RBC) [Ratio] 14.7 % High 11.5-14.5 [facility] Comment on above: Performed By: #### B MP3 #### [facility] [address], [place] Granulocytes/100 WBC (Bld) 66.9 % Normal 40.0-80.0 [facility] Comment on above: Performed By: #### B MP3 #### [place] [address] [address] [place], [place] Hematocrit (Bld) [Volume fraction] 35.6 % Normal 35.0-47.0 [facility] Comment on above: Performed By: #### B MP3 #### [place] [address] [address] [place], [place] Hemoglobin (Bld) [Mass/Vol] 12.1 g/dL Normal 11.7-16.0 [facility] Comment on above: Performed By: #### B MP3 #### [place] [address] [address] [place], [place] Lymphocytes (Bld) [#/Vol] 1.2 10*3/uL Normal 1.0-4.3 [facility] Comment on above: Performed By: #### B MP3 #### [place] [address] [address] [place], [place] Lymphocytes/100 WBC (Bld) 20.6 % Normal 20.0-40.0 [facility] Comment on above: Performed By: #### B MP3 #### [address] [place], [place] MCH (RBC) [Entitic mass] 34.0 pg Normal 26.0-34.0 [facility] Comment on above: Performed By: #### B MP3 #### [place] [address] [address] [place], [place] MCHC 33.9 % Normal 32.0-36.0 [facility] Comment on above: Performed By: #### B MP3 #### [facility] [employer] [facility] [address], [place] MCV (RBC) [Entitic vol] 100.2 fL High 79.0-98.0 [facility] Comment on above: Performed By: #### B MP3 #### [facility] [address], [place] Monocytes (Bld) [#/Vol] 0.6 10*3/uL Normal 0.0-0.8 [facility] Comment on above: Performed By: #### B MP3 #### [facility] [employer] [facility] [address], [place] Monocytes/100 WBC (Bld) 10.8 % High 2.0-10.0 [facility] Comment on above: Performed By: #### B MP3 #### [facility] [employer] [facility] [address], [place] Platelet mean volume (Bld) [Entitic vol] 8.8 fL Normal 7.4-10.4 [facility] Comment on above: Performed By: #### B MP3 #### [facility] [employer] [facility] [address], [place] Platelets (Bld) [#/Vol] 185 10*3/uL Normal 140-440 [facility] Comment on above: Performed By: #### B MP3 #### [facility] [employer] [facility] [address], [place] RBC (Bld) [#/Vol] 3.55 10*6/uL Low 3.80-5.20 [facility] Comment on above: Performed By: #### B MP3 #### [facility] [employer] [facility] [address], [place] WBC (Bld) [#/Vol] 5.8 10*3/uL Normal 3.6-10.7 [facility] Comment on above: Performed By: #### B MP3 #### [facility] [employer] [facility] [address], [place] MRI BRAIN WO CONTRASTon 0 Patient Name: JAZMIN JOHNSON Magnetic Resonance Imaging ACCESSION EXAM DATE/TIME PROCEDURE ORDERING PROVIDER [id number] 12/13/2020 18:00 EST MRI Brain w/o Contrast ROBERT OSWALD CPT code 72108 Reason For Exam (MRI Brain w/o Contrast) subdural hematoma, altered mental status Report MRI OF THE BRAIN WITHOUT GADOLINIUM CLINICAL INDICATION: subdural hematoma, altered mental status TECHNIQUE: Routine MRI of the brain without gadolinium was ordered, patient could only tolerate senior microsoft consultant images, diffusion, sagittal T1 and axial FLAIR. [...] Time: 12/13/2020 6:38 [facility] Work Phone: [place], [facility] Incoming Radiology Results From [facility] - 12/13/2020 6:44 PM EST Patient Name: JAZMIN JOHNSON Magnetic Resonance Imaging ACCESSION EXAM DATE/TIME PROCEDURE ORDERING PROVIDER [id number] 12/13/2020 18:00 EST MRI Brain w/o Contrast [id number] ROBERT BERGMAN CPT code 65126 Reason For Exam (MRI Brain w/o Contrast) subdural hematoma, altered mental status Report MRI OF THE BRAIN WITHOUT GADOLINIUM CLINICAL INDICATION: subdural hematoma, altered mental status TECHNIQUE: Routine MRI of the brain without gadolinium was ordered, patient could only tolerate senior microsoft consultant images, diffusion, sagittal T1 and axial FLAIR. [...] Imaging ACCESSION EXAM DATE/TIME PROCEDURE ORDERING PROVIDER [id number] 12/13/2020 18:00 EST MRI Brain w/o Contrast [id number] ROBERT BERGMAN CPT code 05839 Reason For Exam (MRI Brain w/o Contrast) subdural hematoma, altered mental status Report MRI OF THE BRAIN WITHOUT GADOLINIUM CLINICAL INDICATION: subdural hematoma, altered mental status TECHNIQUE: Routine MRI of the brain without gadolinium was ordered, patient could only tolerate senior microsoft consultant images, diffusion, sagittal T1 and axial FLAIR. [...] Transcribed Date and Time: 12/13/2020 6:38 Normal [facility] XR ABDOMEN (KUB) (SINGLE AP VIEW)on 12-13-2020 [place], [facility] Results From [facility] - 12/13/2020 9:29 AM EST Patient Name: JAZMIN JOHNSON Diagnostic Radiology ACCESSION EXAM DATE/TIME PROCEDURE ORDERING PROVIDER [id number] 12/13/2020 09:25 EST CR Abdomen AP PHANGUREH, DO, INDERPARTAP [facility] CPT code 69463 Reason For Exam (CR Abdomen AP) MRI [...] VLADIMIR Transcribed Date and Time: 12/13/2020 9:25 [facility] Work Phone: Patient Name: JAZMIN JOHNSON Diagnostic Radiology ACCESSION EXAM DATE/TIME PROCEDURE ORDERING PROVIDER [id number] 12/13/2020 09:25 EST CR Abdomen AP PHANGUREH, DO, NINOSKA KOWALSKI CPT code 82653 Reason For Exam (CR Abdomen AP) MRI [...] VLADIMIR Transcribed Date and Time: 12/13/2020 9:25 [facility] Work Phone: Add On Lab Teston 12-12-2020 Sodium [Moles/Vol] Accepted [facility] Work Phone: Comment on above: Specimen available & acceptable for analysis. Test Performed by [facility], [address] [place] [address] Work Phone: Add on test from HISon 12-12 Add on test from HIS Accepted Normal [facility] Comment on above: Result Comment: Spec imen available & acceptable for analysis. Performed By: #### M G3, PHOS3, HEMDF, BMP3M #### [address] [address] Ammoniaon 12-12-2020 Ammonia (P) [Mass/Vol] ug/dL Normal 9-30 [facility] Comment on above: Result Comment: Slig htly hemolysed, interpret with caution. Performed By: #### B MP3 #### [address] [address] Ammonia (P) [Mass/Vol] ug/dL 9 - 30 umol/L [facility] Work Phone: Comment on above: Slightly hemolysed, interpret with caution. Test Performed by [facility], [address] [place] [address] [facility] Work Phone: Blood Gas, Venouson 12-13-19 21 Base Excess, Hira 0.9 mmol/L -3.0 - 3.0 mmol/L [facility] Work Phone: HCO3, Venous 25.1 mmol/L 23.0 - 27.0 mmol/L [facility] Work Phone: [phone] Hemoglobin (Bld) [Mass/Vol] 14.9 g/dL [facility]Only [facility] Work Phone: [phone] Interpretation and review of laboratory results Abnormal [employer] Work Phone: [phone] Oxygen saturation in Blood 90.9 % High 60.0 - 85.0 % [facility] Work Phone: [phone] pCO2, Hira 38.8 mm[Hg] Low 40.0 - 55.0 mm[Hg] [facility] Work Phone: [phone], Hira 7.429 [facility] Work Phone: [phone] pO2, Hira 64.2 mm[Hg] High 30.0 - 50.0 mm[Hg] [facility] Work Phone: [phone] Sodium [Moles/Vol] No data [facility] Work Phone: [phone] TC02 (Calc), Hira 26.3 mmol/L 24.0 - 28.0 mmol/L [facility] Work Phone: [phone] Test Performed by [facility], [address] [place] [address] [facility] Work Phone: [phone] Blood Gas,Venouson 1 CO2 [Moles/Vol] 26.3 mmol/L Normal 24.0-28.0 [facility] Comment on above: Performed By: #### B MP3 #### [employer] [facility] [address] [place] [phone] HCO3 (Bld) [Moles/Vol] 25.1 mmol/L Normal 23.0-27.0 [facility] Comment on above: Performed By: #### B MP3 #### [employer] [address] [place] [phone] Hemoglobin (Bld) [Mass/Vol] 14.9 g/dL Normal [facility] Comment on above: Performed By: #### B MP3 #### [facility] [address], [place] Oxygen (Bld) [Partial pressure] 64.2 mm[Hg] High 30.0-50.0 [facility] Comment on above: Performed By: #### B MP3 #### [place] [address] [address] [place], [place] Oxygen saturation in Blood 90.9 % High 60.0-85.0 [facility] Comment on above: Performed By: #### B MP3 #### [place] [address] [address] [place], [place] pCO2 38.8 mm[Hg] Low 40.0-55.0 [facility] Comment on above: Performed By: #### B MP3 #### [place] [address] [address] [place], [place] pH 7.429 Normal 7.330-7.430 [facility] Comment on above: Performed By: #### B MP3 #### [place] [address] [address] [place], [place] Std Base Excess 0.9 mmol/L Normal -3.0-3.0 [facility] Comment on above: Performed By: #### B MP3 #### [place] [address] [address] [place], [place] FIO2 No data Normal [facility] Comment on above: Performed By: #### B MP3 #### [place] [address] [address] [place], [place] CBC Auto Differentialon 03-0 Absolute Baso # 0.0 10*3/uL 0.0 - 0.2 10*3/uL [facility] Work Phone: Absolute Neut # 6.0 10*3/uL 1.8 - 7.0 10*3/uL [facility] Work Phone: Basophils/100 WBC (Bld) 0.4 % 0.0 - 2.0 % [facility] Work Phone: Eosinophils (Bld) [#/Vol] 0.0 10*3/uL 0.0 - 0.5 10*3/uL [facility] Work Phone: [phone] Eosinophils/100 WBC (Bld) 0.2 % Low 1.0 - 6.0 % [facility] Work Phone: Erythrocyte distribution width (RBC) [Ratio] 14.7 % High 11.5 - 14.5 % [facility] Work Phone: [phone] Granulocytes/100 WBC (Bld) 79.2 % 40.0 - 80.0 % [facility] Work Phone: Hematocrit (Bld) [Volume fraction] 41.0 % 35.0 - 47.0 % [facility] Work Phone: Hemoglobin (Bld) [Mass/Vol] 13.9 g/dL 11.7 - 16.0 g/dL [facility] Work Phone: Interpretation and review of laboratory results Abnormal [facility] Work Phone: Lymphocytes (Bld) [#/Vol] 0.9 10*3/uL Low 1.0 - 4.3 10*3/uL [facility] Work Phone: Lymphocytes/100 WBC (Bld) 11.6 % Low 20.0 - 40.0 % [facility] Work Phone: MCH (RBC) [Entitic mass] 33.7 pg 26.0 - 34.0 pg [facility] Work Phone: MCHC (RBC) [Mass/Vol] 33.8 % 32.0 - 36.0 % [facility] Work Phone: MCV (RBC) [Entitic vol] 99.7 fL High 79.0 - 98.0 fL [facility] Work Phone: Monocytes (Bld) [#/Vol] 0.7 10*3/uL 0.0 - 0.8 10*3/uL [facility] Work Phone: [phone] Monocytes/100 WBC (Bld) 8.6 % 2.0 - 10.0 % [facility] Work Phone: [phone] Platelet mean volume (Bld) [Entitic vol] 8.6 fL 7.4 - 10.4 fL [employer] Work Phone: [phone] Platelets (Bld) [#/Vol] 219 10*3/uL 140 - 440 10*3/uL [facility] Work Phone: [phone] RBC (Bld) [#/Vol] 4.11 10*6/uL 3.80 - 5.2 0 10*6/uL [employer] Work Phone: 1 WBC (Bld) [#/Vol] 7.6 10*3/uL 3.6 - 10.7 10*3/uL [employer] Work Phone: [phone] Test Performed by [employer] [address] [place] [address] [employer] Work Phone: [phone] COVID-19on 12-12-2020 Interpretation and review of laboratory results Abnormal [employer] Work Phone: [phone] SARS-CoV-2 DETECTED Abnormal Not Detected [employer] Work Phone: [phone] Comment on above: DETECTED Expected Result: Not Detected _ Real-time, RT-PCR performed on the [employer] System by the [facility]. Negative results do not preclude SARS-CoV-2 infection and should not be used as the sole basis for treatment or other patient management decisions. This assay was developed by [employer] and distributed under an Emergency Use Authorization (EUA) granted by the FDA for the qualitative detection of SARS-CoV-2 nucleic acid. Test Performed by [facility] [address] CR Chest Portableon 12-13-19 21 CR Chest Portable Patient Name: JAZMIN JOHNSON Diagnostic Radiology ACCESSION EXAM DATE/TIME PROCEDURE ORDERING PROVIDER [id number] 12/12/2020 16:25 EST CR Chest Portable [id number] JACK GRIFFITHS CPT code 20262 Reason For Exam (CR Chest Portable) AMS [...] Transcribed Date and Time: 12/12/2020 4:04 Normal [facility] CT Head WO Contraston 2020 [place], [facility] Incoming Radiology Results From [facility] - 12/12/2020 3:19 PM EST Patient Name: JAZMIN JOHNSON Computed Tomography ACCESSION EXAM DATE/TIME PROCEDURE ORDERING PROVIDER [id number] 12/12/2020 14:[address] Head or Brain w/o [id number] -VENJACK HUITRON Contrast CPT code 27332 Reason For Exam (CT Head or Brain [...] [facility] Work Phone: Patient Name: JAZMIN JOHNSON Computed Tomography ACCESSION EXAM DATE/TIME PROCEDURE ORDERING PROVIDER [id number] 12/12/2020 14:[address] Head or Brain w/o [id number] -JACK MACHUCA Contrast CPT code 59732 Reason For Exam (CT Head or Brain [...] Tomography ACCESSION EXAM DATE/TIME PROCEDURE ORDERING PROVIDER [id number] 12/12/2020 14:[address] Head or Brain w/o [id number] -JACK MACHUCA Contrast CPT code 79356 Reason For Exam (CT Head or Brain [...] Transcribed Date and Time: 12/12/2020 2:57 Normal [facility] Comp Metabolic Panelon 12-12 Calcium [Mass/Vol] 9.9 mg/dL Normal 8.4-10.4 [facility] Comment on above: Performed By: #### B MP3 #### [facility] [address] [place], [place] ALP [Catalytic activity/Vol] 112 U/L Normal 38-126 [facility] Comment on above: Performed By: #### B MP3 #### [facility] [address] [place], [place] ALT [Catalytic activity/Vol] 47 U/L High 0-34 [facility] Comment on above: Result Comment: The ALT test is performed by an updated assay method. Please note that the reference intervals have been changed and are now sex specific. Performed By: #### B MP3 #### [facility] [address] [place], [place] Anion gap [Moles/Vol] 15 mmol/L High 3-13 [facility] Comment on above: Performed By: #### B MP3 #### [facility] [address] [place], [place] AST [Catalytic activity/Vol] 107 U/L High 15-46 [facility] Comment on above: Performed By: #### B MP3 #### [facility] [address] [place], [place] Bilirubin [Mass/Vol] 0.8 mg/dL Normal 0.2-1.3 [facility] Comment on above: Performed By: #### B MP3 #### [facility] [address] [place], [place] CO2 [Moles/Vol] 24 mmol/L Normal 22-30 [facility] Comment on above: Performed By: #### B MP3 #### [facility] [address] [place], [place] Creatinine [Mass/Vol] 0.46 mg/dL Low 0.52-1.25 [facility] Comment on above: Performed By: #### B MP3 #### [facility] [address] [place], [place] eGFR OTHER > 90.0 Normal >60 [facility] Comment on above: Result Comment: KDIG O [...] secretion. Performed By: #### B MP3 #### [facility] [address] [place], [place] GFR/1.73 sq M.predicted among blacks MDRD (S/P/Bld) [Vol rate/Area] mL/min/{1.73_m2} Normal >60 [facility] Comment on above: Performed By: #### B MP3 #### [facility] [address] [place], [place] Glucose [Mass/Vol] 107 mg/dL High 70-100 [facility] Comment on above: Performed By: #### B MP3 #### [place] [address] [address] [place], [place] Protein [Mass/Vol] 7.6 g/dL Normal 6.3-8.2 [facility] Comment on above: Performed By: #### B MP3 #### [place] [address] [address] [place], [place] Urea nitrogen [Mass/Vol] 14 mg/dL Normal 7-20 [facility] Comment on above: Performed By: #### B MP3 #### [place] [address] [address] [place], [place] Potassium [Moles/Vol] 3.4 mmol/L Low 3.5-5.1 [facility] Comment on above: Performed By: #### B MP3 #### [facility] [address] [place], [place] Albumin [Mass/Vol] 4.4 g/dL Normal 3.5-5.0 [facility] Comment on above: Performed By: #### B MP3 #### [facility] [address] [place], [place] Chloride [Moles/Vol] 92 mmol/L Low 98-107 [facility] Comment on above: Performed By: #### B MP3 #### [facility] [address] [place], [place] Sodium [Moles/Vol] 130 mmol/L Low 135-145 [facility] Comment on above: Performed By: #### B MP3 #### [place] [address] [address] [place], [place] Complete Urinalysison 2020 Appearance (U) Clear Normal Clear [facility] Comment on above: Result Comment: . Performed By: #### E TOH4 #### [address] [place], [place] Bacteria LM.HPF (Urine sed) [#/Area] Negative Normal Negative [facility] Comment on above: Result Comment: . Performed By: #### E TOH4 #### [place] [address] [address] [place], [place] Bilirubin,Urine Negative Normal Negative [facility] Comment on above: Result Comment: . Performed By: #### E TOH4 #### [address] [place], [place] Cast, Hyaline Negative Normal Negative [facility] Comment on above: Result Comment: . Performed By: #### E TOH4 #### [address] [place], [place] Color (U) Yellow Normal Lt. Yellow [facility] Comment on above: Result Comment: . Performed By: #### E TOH4 #### [address] [place], [place] Glucose Ql (U) Normal Normal Normal (<70) [facility] Comment on above: Result Comment: . Performed By: #### E TOH4 #### [address] [place], [place] Ketone,Urine 10 mg/dL Abnormal Negative [facility] Comment on above: Result Comment: . Performed By: #### E TOH4 #### [address] [place], [place] Leukocytes,Urine Negative Normal Negative [facility] Comment on above: Result Comment: . Performed By: #### E TOH4 #### [address] [place], [place] Mucous Threads Few Normal Negative [facility] Comment on above: Result Comment: . Performed By: #### E TOH4 #### [address] [place], [place] Nitrites,Urine Negative Normal Negative [facility] Comment on above: Result Comment: . Performed By: #### E TOH4 #### [place] [address] [address] [place], [place] Occult Blood,Urine Negative Normal Negative [facility] Comment on above: Result Comment: . Performed By: #### E TOH4 #### [place] [address] [address] [place], [place] pH,Urine 7.5 Normal 5.0-8.0 [facility] Comment on above: Result Comment: . Performed By: #### E TOH4 #### [address] [address] [address] [place], [place] Protein (U) [Mass/Vol] 10 mg/dL Abnormal Negative [facility] Comment on above: Result Comment: . Performed By: #### E TOH4 #### [address] [address] [address] [place], [place] RBC, Urine 0 - 2 Normal 0-2 [facility] Comment on above: Result Comment: . Performed By: #### E TOH4 #### [address] [address] [address] [place], [place] Specific [place],Urine 1.011 Normal 1.005 - 1.030 [facility] Comment on above: Result Comment: . Performed By: #### E TOH4 #### [address] [address] [address] [place], [place] Squamous Epithelial Negative Normal 3-5 [facility] Comment on above: Result Comment: . Performed By: #### E TOH4 #### [address] [address] [address] [address] [place], [place] Urobilinogen,Urine 2 mg/dL Abnormal Normal (0-1) [facility] Comment on above: Result Comment: . Performed By: #### E TOH4 #### [address] [address] [address] [place], [place] WBC, Urine 0 - 2 Normal 0-5 [facility] Comment on above: Result Comment: . Performed By: #### E TOH4 #### [address] [address] [place] [address] Comprehensive Metabolic [facility] 12-12-2020 Albumin [Mass/Vol] 4.4 g/dL 3.5 - 5.0 g/dL [facility] Work Phone: [phone] ALP [Catalytic activity/Vol] 112 U/L 38 - 126 U/L [facility] Work Phone: [phone] ALT [Catalytic activity/Vol] 47 U/L High 0 - 34 U/L [facility] Work Phone: [phone] Comment on above: The ALT test is perf ormed by an updated assay method. Please note that the reference intervals have been changed and are now sex specific. Anion gap [Moles/Vol] 15 mmol/L High 3 - 13 mmol/L [facility] Work Phone: [phone] AST [Catalytic activity/Vol] 107 U/L High 15 - 46 U/L [facility] Work Phone: [phone] Bilirubin Ql (U) 0.8 mg/dL 0.2 - 1.3 mg/dL [facility] Work Phone: [phone] Calcium [Mass/Vol] 9.9 mg/dL 8.4 - 10. 4 mg/dL [facility] Work Phone: [phone] Chloride [Moles/Vol] 92 mmol/L Low 98 - 107 mmol/L [facility] Work Phone: [phone] CO2 [Moles/Vol] 24 mmol/L 22 - 30 mmol/L [facility] Work Phone: [phone] Creatinine [Mass/Vol] 0.46 mg/dL Low 0.52 - 1.25 mg/dL [facility] Work Phone: [phone] EGFR IF NonAfrican Angolan >90.0 >60 mL/min [facility] Work Phone: Comment on above: KDIGO guidelines [...] MDRD (S/P/Bld) [Vol rate/Area] mL/min/{1.73_m2} >60 mL/min [employer] Work Phone: Glucose [Mass/Vol] 107 mg/dL High 70 - 100 mg/dL [facility] Work Phone: Potassium [Moles/Vol] 3.4 mmol/L Low 3.5 - 5.1 mmol/L [facility] Work Phone: Protein [Mass/Vol] 7.6 g/dL 6.3 - 8.2 g/dL [facility] Work Phone: Sodium [Moles/Vol] 130 mmol/L Low 135 - 145 mmol/L [facility] Work Phone: Urea nitrogen [Mass/Vol] 14 mg/dL 7 - 20 mg/dL [facility] Work Phone: Drugs of Abuseon 12-12-2020 Phencyclidine (PCP), Ur Negative Normal [facility] [employer] [facility] Comment on above: Result Comment: The [...] order. Performed By: #### B MP3 #### [facility] [facility] [address] [place] [phone] Methadone, Ur Negative Normal [facility] Comment on above: Performed By: #### B MP3 #### [facility] [address] [facility] [place] [address] Opiates, Ur Negative Normal [facility] Comment on above: Performed By: #### B MP3 #### [facility] [address] [facility] [place] [address] Cocaine, Ur Negative Normal [facility] Comment on above: Performed By: #### B MP3 #### [facility] [address] [facility] [place] [address] Barbiturates, Ur Positive Normal [facility] Comment on above: Performed By: #### B MP3 #### [facility] [address] [facility] [place] [address] Benzodiazepines, Ur Negative Normal [facility] Comment on above: Performed By: #### B MP3 #### [facility] [address] [facility] [place] [address] Amphetamines, Ur Negative Normal [facility] Comment on above: Performed By: #### B MP3 #### [facility] [address] [facility] [place] [address] Oxycodone/Oxymorphine ,Ur Negative Normal [facility] Comment on above: Performed By: #### B MP3 #### [facility] [address] [facility] [place] ED Provider Noteon ED Provider Note [facility] EMERGENCY DEPT EMERGENCY DEPARTMENT ENCOUNTER Pt Name: [...] encounter. Does this patient come from an [facility], SNF, Rehab, Assisted or other Congregate setting: No (If yes [...] mouth nightly VITAMIN D (ERGOCALCIFEROL) 1.25 MG (55616 UT) CAPS CAPSULE Take 1 capsule by [...] None Rela (more content not included)... Normal [facility] ED Provider Note Emergency Department Encounter [facility] EMERGENCY DEPT Patient: Jazmin Johnson : 1950 Date of Evaluation: 12/12/2020 ED Supervising Physician: Dario Tilley MD I independently examined and evaluated Jazmin Johnson. I wore a n95 mask for the entirety of this encounter. Does this patient come from an ECF, SNF, Rehab, Assisted or other Congregate setting: no (If yes [...] for clarification. Dario Tilley MD [employer] Dario Tilley MD 12/12/20 1405 Dario Tilley MD 12/12/20 1407 Normal [facility] Ethanolon 12-12-2020 Ethanol Lvl 0.156 g/dL High 0.000 - 0.010 g/dL [facility] Work Phone: Comment on above: NOTE: This result is for medical treatment only. Analysis performed using non-forensic procedures. Ethanol Serum/Plasmaon 12-12 Ethanol-Serum/Plasma 0.156 g/dL High 0.000-0.010 [facility] Comment on above: Result Comment: NOTE : This result is for medical treatment only. Analysis performed using non-forensic procedures. Performed By: #### B MP3 #### [address] [address] Free T4on 12-12-2020 Free T4 [Mass/Vol] 0.93 ng/dL Normal 0.78-2.19 [facility] Comment on above: Performed By: #### B MP3 #### [facility] [employer] [address] [address] Hemogram w/ Autodiffon 12-12 Abs Baso Cnt 0.0 10*3/uL Normal 0.0-0.2 [facility] Comment on above: Performed By: #### B MP3 #### [facility] [address] [place], [place] Abs Neutrophile Cnt 6.0 10*3/uL Normal 1.8-7.0 [facility] Comment on above: Performed By: #### B MP3 #### [facility] [address] [place], [place] Basophils/100 WBC (Bld) 0.4 % Normal 0.0-2.0 [facility] Comment on above: Performed By: #### B MP3 #### [address] [address] [address] [place], [place] Eosinophils (Bld) [#/Vol] 0.0 10*3/uL Normal 0.0-0.5 [facility] Comment on above: Performed By: #### B MP3 #### [address] [address] [address] [address] [place], [place] Eosinophils/100 WBC (Bld) 0.2 % Low 1.0-6.0 [facility] Comment on above: Performed By: #### B MP3 #### [address] [address] [address] [address] [place], [place] Erythrocyte distribution width (RBC) [Ratio] 14.7 % High 11.5-14.5 [facility] Comment on above: Performed By: #### B MP3 #### [address] [address] [address] [address] [place], [place] Granulocytes/100 WBC (Bld) 79.2 % Normal 40.0-80.0 [facility] Comment on above: Performed By: #### B MP3 #### [address] [address] [address] [place], [place] Hematocrit (Bld) [Volume fraction] 41.0 % Normal 35.0-47.0 [facility] Comment on above: Performed By: #### B MP3 #### [address] [address] [address] [address] [place], [place] Hemoglobin (Bld) [Mass/Vol] 13.9 g/dL Normal 11.7-16.0 [facility] Comment on above: Performed By: #### B MP3 #### [facility] [address] [place], [place] Lymphocytes (Bld) [#/Vol] 0.9 10*3/uL Low 1.0-4.3 [facility] Comment on above: Performed By: #### B MP3 #### [address] [address] [address] [place], [place] Lymphocytes/100 WBC (Bld) 11.6 % Low 20.0-40.0 [facility] Comment on above: Performed By: #### B MP3 #### [address] [address] [address] [place], [place] MCH (RBC) [Entitic mass] 33.7 pg Normal 26.0-34.0 [facility] Comment on above: Performed By: #### B MP3 #### [address] [address] [address] [place] MCHC 33.8 % Normal 32.0-36.0 [facility] Comment on above: Performed By: #### B MP3 #### [address] [address] [address] [place], [place] MCV (RBC) [Entitic vol] 99.7 fL High 79.0-98.0 [facility] Comment on above: Performed By: #### B MP3 #### [address] [address] [address] [place], [place] Monocytes (Bld) [#/Vol] 0.7 10*3/uL Normal 0.0-0.8 [facility] Comment on above: Performed By: #### B MP3 #### [address] [place], [place] Monocytes/100 WBC (Bld) 8.6 % Normal 2.0-10.0 [facility] Comment on above: Performed By: #### B MP3 #### [address] [address] [address] [address] [place], [place] Platelet mean volume (Bld) [Entitic vol] 8.6 fL Normal 7.4-10.4 [facility] Comment on above: Performed By: #### B MP3 #### [address] [address] [address] [place], [place] Platelets (Bld) [#/Vol] 219 10*3/uL Normal 140-440 [facility] Comment on above: Performed By: #### B MP3 #### [address] [address] [address] [address] [place], [place] RBC (Bld) [#/Vol] 4.11 10*6/uL Normal 3.80-5.20 [facility] Comment on above: Performed By: #### B MP3 #### [address] [address] [address] [address] [place], [place] WBC (Bld) [#/Vol] 7.6 10*3/uL Normal 3.6-10.7 [facility] Comment on above: Performed By: #### B MP3 #### [address] [address] [address] [address] [place], [place] Magnesiumon 12-12-2020 Magnesium [Mass/Vol] 1.4 mg/dL Low 1.6-2.3 [facility] Work Phone: Comment on above: Performed By: #### B MP3 #### [facility] [employer] [place] [address] [address] [place], [place] Interpretation and review of laboratory results Abnormal [facility] Work Phone: Test Performed by [facility] [id number] [place] [address] Work Phone: Otheron 12-12-2020 Interpretation and review of laboratory results Abnormal [facility] Work Phone: Test Performed by [facility] [employer] [id number] [place] [address] Work Phone: [id number] 12-12-2020 SARS-CoV-2 (COVID-19) RNA CY+probe Ql (Unsp spec) SARS-CoV-2 --> Status: F DETECTED Expected Result: Not Detected _ Real-time, RT-PCR performed on the [employer] System by the [facility]. Negative results do not preclude SARS-CoV-2 infection and should not be used as the sole basis for treatment or other patient management decisions. This assay was developed by [employer] and distributed under an Emergency Use Authorization (EUA) granted by the FDA for the qualitative detection of SARS-CoV-2 nucleic acid. Expected Result: Not Detected _ Real-time, RT-PCR performed on the [employer] System by the [facility]. Negative results do not preclude SARS-CoV-2 infection and should not be used as the sole basis for treatment or other patient management decisions. This assay was developed by [employer] and distributed under an Emergency Use Authorization (EUA) granted by the FDA for the qualitative detection of SARS-CoV-2 nucleic acid. Abnormal [facility] [facility] Comment on above: Performed By: #### A PTT, FIBGN, LDH3, DDI2, B12, CMP3, FERR3, HEMDF, CRP2, PT, FOLT3 #### [employer] [address] [place] [phone] #### [id number] #### [employer] [address] [place] [address] T4, Freeon 12-12-2020 Free T4 [Mass/Vol] 0.93 ng/dL 0.78 - 2. 19 ng/dL [employer] Work Phone: [phone] Test Performed by [facility] [address] [employer] Work Phone: [phone] without Reflexon 021 Interpretation and review of laboratory results Abnormal [employer] Work Phone: [phone] TSH Qn 6.046 u[IU]/mL High 0.465 - 4.680 u[IU]/mL [employer] Work Phone: [phone] Test Performed by [employer] [facility], [address] [place] [address] [employer] Work Phone: [phone] Thyroid Stim. Hormoneon 03-0 Thyroid Stim. Hormone 6.046 u[IU]/mL High 0.465-4.68 0 [facility] [facility] Comment on above: Performed By: #### B MP3 #### [employer] [facility] [address] [place] [address] Troponinon 12-12-2020 Troponin I.cardiac [Mass/Vol] ng/mL 0.000 - 0.034 ng/mL [facility] Work Phone: [phone] Comment on above: . Test Performed by [employer] [facility], [address] [place] [address] [facility] Work Phone: [phone] Troponin Ion 12-12-2020 Troponin I.cardiac [Mass/Vol] ng/mL Normal 0.000-0.034 [employer] [facility] Comment on above: Result Comment: . Performed By: #### B MP3 #### [employer] [facility] [address] [place] [address] Urinalysison 12-12-2020 Appearance (U) Clear Clear NA [facility] Work Phone: [phone] Comment on above: . Bacteria, UA Negative Negative /[HPF] [facility] Work Phone: [phone] Comment on above: . Bilirubin Urine Negative Negative mg/dL [facility] Work Phone: [phone] Comment on above: . Color (U) Yellow Lt. Yellow NA [facility] Work Phone: [phone] Comment on above: . Glucose, Ur Normal Normal (<70) mg/dL [facility] Work Phone: [phone] Comment on above: . Hyaline Casts, UA Negative Negative /[LPF] [facility] Work Phone: [phone] Comment on above: . Interpretation and review of laboratory results Abnormal [facility] Work Phone: [phone] Ketones Ql (U) 10 mg/dL Abnormal Negative [facility] Work Phone: [phone] Comment on above: . LEUKOCYTES, UA Negative Negative Jennifer/uL [facility] Work Phone: [phone] Comment on above: . Mucous Threads Few Negative /[LPF] [facility] Work Phone: [phone] Comment on above: . Nitrite, Urine Negative Negative NA [facility] Work Phone: [phone] Comment on above: . Occult Blood,Urine Negative Negative mg/dL [facility] Work Phone: [phone] Comment on above: . pH (U) 7.5 [pH] [facility] Work Phone: 1 Comment on above: . Protein (U) [Mass/Vol] 10 mg/dL Abnormal Negative [facility] Work Phone: [phone] Comment on above: . RBC (U) [#/Vol] 0-2 0 - 2 /[HPF] [facility] Work Phone: 1 Comment on above: . Specific [place], Urine 1.011 [facility] Work Phone: [phone] Comment on above: . Squam Epithel, UA Negative 3 - 5 /[HPF] [facility] Work Phone: [phone] Comment on above: . Urobilinogen, Urine 2 mg/dL Abnormal Normal (0-1) [facility] Work Phone: [phone] Comment on above: . WBC, UA 0-2 0 - 5 /[HPF] [facility] Work Phone: 1 Comment on above: . Test Performed by [employer], [address] [place] [address] [facility] Work Phone: [phone] Urine Drug Screenon 12-13-19 21 Amphetamines, urine Negative [facility] Work Phone: [phone] Barbiturates, Ur Positive [facility] Work Phone: [phone] Benzodiazepine Ur Qual Negative [facility] Work Phone: [phone] Cocaine Metabolites, Ur Negative [facility] Work Phone: 1 Methadone, Urine Negative [facility] Work Phone: [phone] Opiates, Urine Negative [facility] Work Phone: [phone] Oxycodone Screen, Ur Negative [facility] Work Phone: [phone] PCP, Urine Negative [facility] Work Phone: [phone] Comment on above: The expected value f [...] confirmation under separate order. Test Performed by [employer] [facility], [address] [place] [address] [employer] Work Phone: Vitamin B12on 12-12-2020 Cobalamin (Vitamin B12) [Mass/Vol] 960 pg/mL High 239-931 [employer] [facility] Comment on above: Performed By: #### B MP3 #### [employer] [facility] [address] [place] [phone] Cobalamin (Vitamin B12) [Mass/Vol] 960 pg/mL High 239 - 931 pg/mL [employer] Work Phone: Interpretation and review of laboratory results Abnormal [employer] Work Phone: Test Performed by [employer], [address] [place] [address] [employer] Work Phone: XR CHEST PORTABLEon 12-13-19 Patient Name: JAZMIN JOHNSON Diagnostic Radiology ACCESSION EXAM DATE/TIME PROCEDURE ORDERING PROVIDER [id number] 12/12/2020 16:25 EST CR Chest Portable [id number] JACK GRIFFITHS CPT code 29386 Reason For Exam (CR Chest Portable) AMS [...] VLADIMIR Transcribed Date and Time: 12/12/2020 4:04 [facility] Work Phone: [place] From [facility] - 12/12/2020 4:25 PM EST Patient Name: JAZMIN JOHNSON Diagnostic Radiology ACCESSION EXAM DATE/TIME PROCEDURE ORDERING PROVIDER [id number] 12/12/2020 16:25 EST CR Chest Portable [id number] JACK GRIFFITHS CPT code 27950 Reason For Exam (CR Chest Portable) AMS [...] VLADIMIR Transcribed Date and Time: 12/12/2020 4:04 [facility] Work Phone: C-Reactive Proteinon 021 CRP [Mass/Vol] mg/L Normal 0.0-6.0 [facility] Comment on above: Result Comment: . Performed By: #### E TOH4 #### [address] Comp Metabolic Panelon 11-16 Calcium [Mass/Vol] 9.6 mg/dL Normal 8.4-10.4 [facility] Comment on above: Performed By: #### E TOH4 #### [address] [address] [address] [place], [place] Glucose [Mass/Vol] 79 mg/dL Normal 70-100 [facility] Comment on above: Performed By: #### E TOH4 #### [address] [address] [address] [address] [place], [place] Urea nitrogen [Mass/Vol] 18 mg/dL Normal 7-20 [facility] Comment on above: Performed By: #### E TOH4 #### [address] [address] [address] [address] [place], [place] ALP [Catalytic activity/Vol] 65 U/L Normal 38-126 [facility] Comment on above: Performed By: #### E TOH4 #### [address] [address] [address] [place], [place] ALT [Catalytic activity/Vol] 13 U/L Normal 0-34 [facility] Comment on above: Result Comment: The ALT test is performed by an updated assay method. Please note that the reference intervals have been changed and are now sex specific. Performed By: #### E TOH4 #### [address] [address] [address] [place], [place] Anion Gap 9 Normal [facility] Comment on above: Performed By: #### E TOH4 #### [address] [address] [address] [address] [place] AST [Catalytic activity/Vol] 29 U/L Normal 15-46 [facility] Comment on above: Performed By: #### E TOH4 #### [address] [address] [address] [address] [place] Bilirubin [Mass/Vol] 0.4 mg/dL Normal 0.2-1.3 [facility] Comment on above: Performed By: #### E TOH4 #### [place] [address] [address] [address] [place], [place] CO2 [Moles/Vol] 23 mmol/L Normal 22-30 [facility] Comment on above: Performed By: #### E TOH4 #### [place] [address] [address] [address] [place] Creatinine [Mass/Vol] 0.49 mg/dL Low 0.52-1.25 [facility] Comment on above: Performed By: #### E TOH4 #### [address] [address] [address] [address] [place], [place] eGFR OTHER > 90.0 Normal >60 [facility] Comment on above: Result Comment: KDIG O [...] secretion. Performed By: #### E TOH4 #### [address] [address] [address] [address] [place], [place] GFR/1.73 sq M.predicted among blacks MDRD (S/P/Bld) [Vol rate/Area] mL/min/{1.73_m2} Normal >60 [facility] Comment on above: Performed By: #### E TOH4 #### [address] [address] [address] [place], [place] Protein [Mass/Vol] 6.5 g/dL Normal 6.3-8.2 [facility] Comment on above: Performed By: #### E TOH4 #### [address] [address] [address] [address] [place] Potassium [Moles/Vol] 3.8 mmol/L Normal 3.5-5.1 [facility] Comment on above: Performed By: #### E TOH4 #### [facility] [address] [place], [place] Albumin [Mass/Vol] 3.6 g/dL Normal 3.5-5.0 [facility] Comment on above: Performed By: #### E TOH4 #### [facility] [address] [place], [place] Sodium [Moles/Vol] 138 mmol/L Normal 135-145 [facility] Comment on above: Performed By: #### E TOH4 #### [facility] [address] [place], [place] Chloride [Moles/Vol] 106 mmol/L Normal 98-107 [facility] Comment on above: Performed By: #### E TOH4 #### [place] [address] [address] [place], [place] C-Reactive Proteinon 021 CRP [Mass/Vol] mg/L Normal 0.0-6.0 [facility] Comment on above: Result Comment: . Performed By: #### M G3, PHOS3, HEMDF, BMP3M #### [place] [address] [address] [place], [place] Comp Metabolic Panelon 11-15 ALP [Catalytic activity/Vol] 75 U/L Normal 38-126 [facility] Comment on above: Performed By: #### M G3, PHOS3, HEMDF, BMP3M #### [place] [address] [address] [place] ALT [Catalytic activity/Vol] 13 U/L Normal 0-34 [facility] Comment on above: Result Comment: The ALT test is performed by an updated assay method. Please note that the reference intervals have been changed and are now sex specific. Performed By: #### M G3, PHOS3, HEMDF, BMP3M #### [facility] [address] [place], [place] Anion Gap 6 Normal [facility] Comment on above: Performed By: #### M G3, PHOS3, HEMDF, BMP3M #### [place] [address] [address] [place] AST [Catalytic activity/Vol] 28 U/L Normal 15-46 [facility] Comment on above: Performed By: #### M G3, PHOS3, HEMDF, BMP3M #### [facility] [address] [place], [place] Calcium [Mass/Vol] 9.2 mg/dL Normal 8.4-10.4 [facility] Comment on above: Performed By: #### M G3, PHOS3, HEMDF, BMP3M #### [place] [address] [address] [place] CO2 [Moles/Vol] 23 mmol/L Normal 22-30 [facility] Comment on above: Performed By: #### M G3, PHOS3, HEMDF, BMP3M #### [place] [address] [address] [place] Glucose [Mass/Vol] 90 mg/dL Normal 70-100 [facility] Comment on above: Performed By: #### M G3, PHOS3, HEMDF, BMP3M #### [place] [place] Protein [Mass/Vol] 6.4 g/dL Normal 6.3-8.2 [facility] Comment on above: Performed By: #### M G3, PHOS3, HEMDF, BMP3M #### [place] [place] Urea nitrogen [Mass/Vol] 10 mg/dL Normal 7-20 [facility] Comment on above: Performed By: #### M G3, PHOS3, HEMDF, BMP3M #### [place] [place] Bilirubin [Mass/Vol] 0.4 mg/dL Normal 0.2-1.3 [facility] Comment on above: Performed By: #### M G3, PHOS3, HEMDF, BMP3M #### [place] [address] [address] [place] Creatinine [Mass/Vol] 0.46 mg/dL Low 0.52-1.25 [facility] Comment on above: Performed By: #### M G3, PHOS3, HEMDF, BMP3M #### [address] eGFR OTHER > 90.0 Normal >60 [facility] Comment on above: Result Comment: KDIG O [...] #### M G3, PHOS3, HEMDF, BMP3M #### [place] [address] [address] [place], [place] GFR/1.73 sq M.predicted among blacks MDRD (S/P/Bld) [Vol rate/Area] mL/min/{1.73_m2} Normal >60 [facility] Comment on above: Performed By: #### M G3, PHOS3, HEMDF, BMP3M #### [place] [place], [place] Potassium [Moles/Vol] 3.7 mmol/L Normal 3.5-5.1 [facility] Comment on above: Performed By: #### M G3, PHOS3, HEMDF, BMP3M #### [address] Sodium [Moles/Vol] 137 mmol/L Normal 135-145 [facility] Comment on above: Performed By: #### M G3, PHOS3, HEMDF, BMP3M #### [place] [address] [place] [place], [place] Albumin [Mass/Vol] 3.6 g/dL Normal 3.5-5.0 [facility] Comment on above: Performed By: #### M G3, PHOS3, HEMDF, BMP3M #### [place] [address] [address] [place], [place] Chloride [Moles/Vol] 108 mmol/L High 98-107 [facility] Comment on above: Performed By: #### M G3, PHOS3, HEMDF, BMP3M #### [place] [address] [address] [place], [place] D-Dimer, Innovanceon 021 D-Dimer, Innovance 3.24 mg/L High 0.00-0.50 [facility] Comment on above: Result Comment: Inno [place] D-Dimer values of <0.50 mg/L FEU can be used in combination with a pre-test probability model (e.g. Well's) to exclude pulmonary embolism (PE) disease, as well as an aid in the diagnosis of deep vein thrombosis (DVT). Performed By: #### M G3, PHOS3, HEMDF, BMP3M #### [place] [address] [address] [place], [place] Hemogram w/ Autodiffon 11-15 Abs Baso Cnt 0.1 10*3/uL Normal 0.0-0.2 [facility] Comment on above: Performed By: #### M G3, PHOS3, HEMDF, BMP3M #### [place] [address] [address] [place], [place] Abs Neutrophile Cnt 3.1 10*3/uL Normal 1.8-7.0 [facility] Comment on above: Performed By: #### M G3, PHOS3, HEMDF, BMP3M #### [place] [address] [address] [place], [place] Basophils/100 WBC (Bld) 1.1 % Normal 0.0-2.0 [facility] Comment on above: Performed By: #### M G3, PHOS3, HEMDF, BMP3M #### [place] [address] [address] [place], [place] Eosinophils (Bld) [#/Vol] 0.1 10*3/uL Normal 0.0-0.5 [facility] Comment on above: Performed By: #### M G3, PHOS3, HEMDF, BMP3M #### [place] [address] [address] [place], [place] Eosinophils/100 WBC (Bld) 2.3 % Normal 1.0-6.0 [facility] Comment on above: Performed By: #### M G3, PHOS3, HEMDF, BMP3M #### [place] [address] [address] [place], [place] Erythrocyte distribution width (RBC) [Ratio] 14.4 % Normal 11.5-14.5 [facility] Comment on above: Performed By: #### M G3, PHOS3, HEMDF, BMP3M #### [place] [address] [address] [place], [place] Granulocytes/100 WBC (Bld) 50.5 % Normal 40.0-80.0 [facility] Comment on above: Performed By: #### M G3, PHOS3, HEMDF, BMP3M #### [place] [address] [address] [place], [place] Hematocrit (Bld) [Volume fraction] 38.3 % Normal 35.0-47.0 [facility] Comment on above: Performed By: #### M G3, PHOS3, HEMDF, BMP3M #### [place] [address] [address] [place], [place] Hemoglobin (Bld) [Mass/Vol] 12.7 g/dL Normal 11.7-16.0 [facility] Comment on above: Performed By: #### M G3, PHOS3, HEMDF, BMP3M #### [place] [address] [address] [place], [place] Lymphocytes (Bld) [#/Vol] 2.0 10*3/uL Normal 1.0-4.3 [facility] Comment on above: Performed By: #### M G3, PHOS3, HEMDF, BMP3M #### [place] [address] [address] [place], [place] Lymphocytes/100 WBC (Bld) 32.3 % Normal 20.0-40.0 [facility] Comment on above: Performed By: #### M G3, PHOS3, HEMDF, BMP3M #### [facility] [address], [place] MCH (RBC) [Entitic mass] 33.5 pg Normal 26.0-34.0 [facility] Comment on above: Performed By: #### M G3, PHOS3, HEMDF, BMP3M #### [place] [address] [address] [place], [place] MCHC 33.1 % Normal 32.0-36.0 [facility] Comment on above: Performed By: #### M G3, PHOS3, HEMDF, BMP3M #### [place] [address] [address] [place], [place] MCV (RBC) [Entitic vol] 101.1 fL High 79.0-98.0 [facility] Comment on above: Performed By: #### M G3, PHOS3, HEMDF, BMP3M #### [place] [address] [address] [place], [place] Monocytes (Bld) [#/Vol] 0.8 10*3/uL Normal 0.0-0.8 [facility] Comment on above: Performed By: #### M G3, PHOS3, HEMDF, BMP3M #### [place] [address] [address] [place], [place] Monocytes/100 WBC (Bld) 13.8 % High 2.0-10.0 [facility] Comment on above: Performed By: #### M G3, PHOS3, HEMDF, BMP3M #### [place] [address] [address] [place], [place] Platelet mean volume (Bld) [Entitic vol] 9.2 fL Normal 7.4-10.4 [facility] Comment on above: Performed By: #### M G3, PHOS3, HEMDF, BMP3M #### [place] [address] [address] [place], [place] Platelets (Bld) [#/Vol] 161 10*3/uL Normal 140-440 [facility] Comment on above: Performed By: #### M G3, PHOS3, HEMDF, BMP3M #### [place] [address] [address] [place], [place] RBC (Bld) [#/Vol] 3.79 10*6/uL Low 3.80-5.20 [facility] Comment on above: Performed By: #### M G3, PHOS3, HEMDF, BMP3M #### [facility] [address], [place] WBC (Bld) [#/Vol] 6.1 10*3/uL Normal 3.6-10.7 [facility] Comment on above: Performed By: #### M G3, PHOS3, HEMDF, BMP3M #### [place] [address] [address] [place], [place] APTTon 11-14-2020 aPTT Coag (Bld) [Time] 25.3 s Normal 20.0-30.5 [facility] Comment on above: Result Comment: NOTE : The therapeutic time for Heparin anticoagulation, based on Xa activity inhibition, is an APTT of 46-80 seconds. Performed By: #### Ruben G3, PHOS3, HEMDF, BMP3M #### [place] [address] [address] [place], [place] C-Reactive Proteinon 021 CRP [Mass/Vol] 10.9 mg/L High 0.0-6.0 [facility] Comment on above: Result Comment: . Performed By: #### M G3, PHOS3, HEMDF, BMP3M #### [place] [address] [address] [place], [place] Comp Metabolic Panelon 11-14 ALP [Catalytic activity/Vol] 79 U/L Normal 38-126 [facility] Comment on above: Performed By: #### M G3, PHOS3, HEMDF, BMP3M #### [facility] [address], [place] ALT [Catalytic activity/Vol] 11 U/L Normal 0-34 [facility] Comment on above: Result Comment: The ALT test is performed by an updated assay method. Please note that the reference intervals have been changed and are now sex specific. Performed By: #### M G3, PHOS3, HEMDF, BMP3M #### [place] [address] [address] [place], [place] Anion Gap 9 Normal [facility] Comment on above: Performed By: #### M G3, PHOS3, HEMDF, BMP3M #### [place] [address] [place], [place] AST [Catalytic activity/Vol] 25 U/L Normal 15-46 [facility] Comment on above: Performed By: #### M G3, PHOS3, HEMDF, BMP3M #### [place] [address] [address] [place], [place] Bilirubin [Mass/Vol] 0.4 mg/dL Normal 0.2-1.3 [facility] Comment on above: Performed By: #### M G3, PHOS3, HEMDF, BMP3M #### [place] [address] [place], [place] Calcium [Mass/Vol] 9.0 mg/dL Normal 8.4-10.4 [facility] Comment on above: Performed By: #### M G3, PHOS3, HEMDF, BMP3M #### [place] [address] [address] [place], [place] CO2 [Moles/Vol] 20 mmol/L Low 22-30 [facility] Comment on above: Performed By: #### M G3, PHOS3, HEMDF, BMP3M #### [place] [address] [place], [place] Glucose [Mass/Vol] 94 mg/dL Normal 70-100 [facility] Comment on above: Performed By: #### M G3, PHOS3, HEMDF, BMP3M #### [place] [address] [place], [place] Protein [Mass/Vol] 6.2 g/dL Low 6.3-8.2 [facility] Comment on above: Performed By: #### M G3, PHOS3, HEMDF, BMP3M #### [facility] [address] [place], [place] Urea nitrogen [Mass/Vol] 16 mg/dL Normal 7-20 [facility] Comment on above: Performed By: #### M G3, PHOS3, HEMDF, BMP3M #### [facility] [address] [place], [place] Creatinine [Mass/Vol] 0.51 mg/dL Low 0.52-1.25 [facility] Comment on above: Performed By: #### M G3, PHOS3, HEMDF, BMP3M #### [facility] [address], [place] eGFR OTHER > 90.0 Normal >60 [facility] Comment on above: Result Comment: KDIG O [...] #### M G3, PHOS3, HEMDF, BMP3M #### [facility] [address], [place] GFR/1.73 sq M.predicted among blacks MDRD (S/P/Bld) [Vol rate/Area] mL/min/{1.73_m2} Normal >60 [facility] Comment on above: Performed By: #### M G3, PHOS3, HEMDF, BMP3M #### [facility] [address] [place], [place] Potassium [Moles/Vol] 3.9 mmol/L Normal 3.5-5.1 [facility] Comment on above: Performed By: #### M G3, PHOS3, HEMDF, BMP3M #### [facility] [address] [place], [place] Albumin [Mass/Vol] 3.4 g/dL Low 3.5-5.0 [facility] Comment on above: Performed By: #### M G3, PHOS3, HEMDF, BMP3M #### [address] [address] [place] [address] Chloride [Moles/Vol] 109 mmol/L High 98-107 [facility] Comment on above: Performed By: #### M G3, PHOS3, HEMDF, BMP3M #### [place] [address] [place], [place] Sodium [Moles/Vol] 137 mmol/L Normal 135-145 [facility] Comment on above: Performed By: #### M G3, PHOS3, HEMDF, BMP3M #### [place] [address] [place], [place] D-Dimer, Innovanceon 11-14- 021 D-Dimer, Innovance 3.00 mg/L High 0.00-0.50 [facility] Comment on above: Result Comment: In[place] D-Dimer values of <0.50 mg/L FEU can be used in combination with a pre-test probability model (e.g. Well's) to exclude pulmonary embolism (PE) disease, as well as an aid in the diagnosis of deep vein thrombosis (DVT). Performed By: #### M G3, PHOS3, HEMDF, BMP3M #### [place] [place] [address] Ferritinon 11-14-2020 Ferritin [Mass/Vol] 165 ng/mL Normal 8-252 [facility] Comment on above: Performed By: #### M G3, PHOS3, HEMDF, BMP3M #### [place] [place] [address] Fibrinogenon 11-14-2020 Fibrinogen 414 mg/dL High 200-400 [facility] Comment on above: Performed By: #### M G3, PHOS3, HEMDF, BMP3M #### [address] Folateon 11-14-2020 Folate 16.6 ng/mL Normal 2.8-20.0 [facility] Comment on above: Performed By: #### M G3, PHOS3, HEMDF, BMP3M #### [address] Hemogram w/ Autodiffon 11-14 Abs Baso Cnt 0.0 10*3/uL Normal 0.0-0.2 [facility] Comment on above: Performed By: #### A PTT, FIBGN, LDH3, DDI2, B12, CMP3, FERR3, HEMDF, CRP2, PT, FOLT3 #### [address] #### VD25H #### [facility] [address] [place] [address] Abs Neutrophile Cnt 3.4 10*3/uL Normal 1.8-7.0 [facility] Comment on above: Performed By: #### A PTT, FIBGN, LDH3, DDI2, B12, CMP3, FERR3, HEMDF, CRP2, PT, FOLT3 #### [facility] [address] [place], [place] #### VD25H #### [facility] [address] [place] [address] Basophils/100 WBC (Bld) 0.6 % Normal 0.0-2.0 [facility] Comment on above: Performed By: #### A PTT, FIBGN, LDH3, DDI2, B12, CMP3, FERR3, HEMDF, CRP2, PT, FOLT3 #### [address] #### VD25H #### [facility] [address] [place] [address] Eosinophils (Bld) [#/Vol] 0.1 10*3/uL Normal 0.0-0.5 [facility] Comment on above: Performed By: #### A PTT, FIBGN, LDH3, DDI2, B12, CMP3, FERR3, HEMDF, CRP2, PT, FOLT3 #### [address] #### VD25H #### [facility] [address] [place] [address] Eosinophils/100 WBC (Bld) 1.3 % Normal 1.0-6.0 [facility] Comment on above: Performed By: #### A PTT, FIBGN, LDH3, DDI2, B12, CMP3, FERR3, HEMDF, CRP2, PT, FOLT3 #### [address] #### VD25H #### [facility] [address] [place] [address] Erythrocyte distribution width (RBC) [Ratio] 14.3 % Normal 11.5-14.5 [facility] Comment on above: Performed By: #### A PTT, FIBGN, LDH3, DDI2, B12, CMP3, FERR3, HEMDF, CRP2, PT, FOLT3 #### [address] #### VD25H #### [facility] [address] [place] [address] Granulocytes/100 WBC (Bld) 61.9 % Normal 40.0-80.0 [facility] Comment on above: Performed By: #### A PTT, FIBGN, LDH3, DDI2, B12, CMP3, FERR3, HEMDF, CRP2, PT, FOLT3 #### [address] #### VD25H #### [facility] [address] [place] [address] Hematocrit (Bld) [Volume fraction] 36.2 % Normal 35.0-47.0 [facility] Comment on above: Performed By: #### A PTT, FIBGN, LDH3, DDI2, B12, CMP3, FERR3, HEMDF, CRP2, PT, FOLT3 #### [address], [place] #### VD25H #### [facility] [address] [place] [address] Hemoglobin (Bld) [Mass/Vol] 12.1 g/dL Normal 11.7-16.0 [facility] Comment on above: Performed By: #### A PTT, FIBGN, LDH3, DDI2, B12, CMP3, FERR3, HEMDF, CRP2, PT, FOLT3 #### [address] #### VD25H #### [facility] [address] [place] [address] Lymphocytes (Bld) [#/Vol] 1.3 10*3/uL Normal 1.0-4.3 [facility] Comment on above: Performed By: #### A PTT, FIBGN, LDH3, DDI2, B12, CMP3, FERR3, HEMDF, CRP2, PT, FOLT3 #### [address] #### VD25H #### [facility] [address] [place] [address] Lymphocytes/100 WBC (Bld) 24.2 % Normal 20.0-40.0 [facility] Comment on above: Performed By: #### A PTT, FIBGN, LDH3, DDI2, B12, CMP3, FERR3, HEMDF, CRP2, PT, FOLT3 #### [address] #### VD25H #### [facility] [address] [place] [address] MCH (RBC) [Entitic mass] 33.6 pg Normal 26.0-34.0 [facility] Comment on above: Performed By: #### A PTT, FIBGN, LDH3, DDI2, B12, CMP3, FERR3, HEMDF, CRP2, PT, FOLT3 #### [address] #### VD25H #### [place] [address] [place] [address] MCHC 33.5 % Normal 32.0-36.0 [facility] Comment on above: Performed By: #### A PTT, FIBGN, LDH3, DDI2, B12, CMP3, FERR3, HEMDF, CRP2, PT, FOLT3 #### [facility] [address] [place], [place] #### VD25H #### [facility] [address] [place] [address] MCV (RBC) [Entitic vol] 100.2 fL High 79.0-98.0 [facility] Comment on above: Performed By: #### A PTT, FIBGN, LDH3, DDI2, B12, CMP3, FERR3, HEMDF, CRP2, PT, FOLT3 #### [address] #### VD25H #### [facility] [address] [place] [address] Monocytes (Bld) [#/Vol] 0.7 10*3/uL Normal 0.0-0.8 [facility] Comment on above: Performed By: #### A PTT, FIBGN, LDH3, DDI2, B12, CMP3, FERR3, HEMDF, CRP2, PT, FOLT3 #### [address] #### VD25H #### [facility] [address] [place] [address] Monocytes/100 WBC (Bld) 12.0 % High 2.0-10.0 [facility] Comment on above: Performed By: #### A PTT, FIBGN, LDH3, DDI2, B12, CMP3, FERR3, HEMDF, CRP2, PT, FOLT3 #### [address] #### VD25H #### [facility] [address] [place] [address] Platelet mean volume (Bld) [Entitic vol] 9.7 fL Normal 7.4-10.4 [facility] Comment on above: Performed By: #### A PTT, FIBGN, LDH3, DDI2, B12, CMP3, FERR3, HEMDF, CRP2, PT, FOLT3 #### [place] [address] [place], [place] #### VD25H #### [facility] [address] [place] [address] Platelets (Bld) [#/Vol] 138 10*3/uL Low 140-440 [facility] Comment on above: Performed By: #### A PTT, FIBGN, LDH3, DDI2, B12, CMP3, FERR3, HEMDF, CRP2, PT, FOLT3 #### [address] #### VD25H #### [place] [address] [place] [address] RBC (Bld) [#/Vol] 3.62 10*6/uL Low 3.80-5.20 [facility] Comment on above: Performed By: #### A PTT, FIBGN, LDH3, DDI2, B12, CMP3, FERR3, HEMDF, CRP2, PT, FOLT3 #### [address] #### VD25H #### [facility] [address] [place] [address] WBC (Bld) [#/Vol] 5.4 10*3/uL Normal 3.6-10.7 [facility] Comment on above: Performed By: #### A PTT, FIBGN, LDH3, DDI2, B12, CMP3, FERR3, HEMDF, CRP2, PT, FOLT3 #### [address] #### VD25H #### [facility] [address] [place] [address] LDHon 11-14-2020 LDH 175 U/L Normal 120-246 [facility] Comment on above: Performed By: #### M G3, PHOS3, HEMDF, BMP3M #### [address] Procalcitoninon 11-14-2020 Procalcitonin < 0.10 Normal <0.10 [facility] Comment on above: Performed By: #### E TOH4 #### [facility] [address] [place] [address] Prothrombin Timeon INR 1.0 Normal 0.9-1.1 [facility] Comment on above: Result Comment: Daniel mmended [...] #### M G3, PHOS3, HEMDF, BMP3M #### [facility] [address] [place], [place] PT Coag (PPP) [Time] 10.9 s Normal 9.0-12.0 [facility] Comment on above: Result Comment: . Performed By: #### M G3, PHOS3, HEMDF, BMP3M #### [facility] [address] [place], [place] Vit D 25-OH, Totalon 021 Vit D 25-OH, Total 25 ng/mL Low 30-100 [facility] Comment on above: Result Comment: Ther apy is based on measurement of Total 25- OHD with the following classification levels: Less than 20 ng/mL: Indicative of Vit D deficiency 20-30 ng/mL: Suggests Vit D insufficiency Optimal: Greater than or equal to 30 ng/mL Test performed by [employer] Competitive Immunoassay, measuring Total Vitamin D, not individual fractions. Performed By: #### M G3, PHOS3, HEMDF, BMP3M #### [facility] [address] [place], [place] Vitamin B12on 11-14-2020 Cobalamin (Vitamin B12) [Mass/Vol] 986 pg/mL High 239-931 [facility] Comment on above: Performed By: #### M G3, PHOS3, HEMDF, BMP3M #### [facility] [address] [place] [address] Add on test from HISon 11-13 Add on test from HIS Accepted Normal [facility] Comment on above: Result Comment: Spec imen available & acceptable for analysis. Performed By: #### M G3, PHOS3, HEMDF, BMP3M #### [facility] [address] [place] [address] CR Chest Portableon 11-13-19 21 CR Chest Portable Patient Name: JAZMIN JOHNSON Diagnostic Radiology ACCESSION EXAM DATE/TIME PROCEDURE ORDERING PROVIDER [id number] 11/13/2020 07:39 EST CR Chest Portable MD LITTLE ALEKSANDAR CPT code 78056 Reason For Exam (CR Chest Portable) r/o [...] Transcribed Date and Time: 11/13/2020 7:23 Normal [facility] LEGIONELLA AG, URINEon 11-13 LEGIONELLA AG, URINE Not detected Normal [facility] Comment on above: Performed By: #### M G3, PHOS3, HEMDF, BMP3M #### [facility] [address], [place] Phenobarbitalon 11-13-2020 PHENobarbital [Mass/Vol] 17.2 ug/mL Normal 15.0-40.0 [facility] Comment on above: Performed By: #### N A3 #### [facility] [address], [place] Procalcitoninon 11-13-2020 Interpretation See Below Normal [facility] Comment on above: Result Comment: PCT <0.50 = Low risk of severe sepsis and/or septic shock. PCT >2.00 = High risk of severe sepsis and/or septic shock. Performed By: #### E TOH4 #### [facility] [address], [place] STREP PNEUMO ANTIGEN, URINEo n 11-13-2020 STREP PNEUMO ANTIGEN, URINE Not detected Normal [facility] Comment on above: Performed By: #### M G3, PHOS3, HEMDF, BMP3M #### [facility] [address], [place] Staph Aureus Complete Nasalo n 11-13-2020 Staph Aureus Complete Nasal Staph Screen --> Status: F No S. aureus detected. Negative nasal MRSA PCR has a high negative predictive value for MRSA pneumonia. Consider stopping vancomycin if no other clinical indication. Contact Antimicrobial Stewardship for further recommendations. The analytical performance characteristics of this assay have [facility] accordance with CLIA regulations. The modifications [...] of this assay have been determined by [facility] in accordance with CLIA regulations. The modifications have not been cleared or approved by the U. S. Food and Drug Administration; however, the FDA has determined that such clearance or approval is not necessary. Normal [facility] Comment on above: Performed By: #### M G3, PHOS3, HEMDF, BMP3M #### [facility] [address], [place] Basic Metabolic Panelon - Anion Gap 3 Normal [facility] Comment on above: Performed By: #### M G3, PHOS3, HEMDF, BMP3M #### [facility] [address] [place], [place] Calcium [Mass/Vol] 8.8 mg/dL Normal 8.4-10.4 [facility] Comment on above: Performed By: #### M G3, PHOS3, HEMDF, BMP3M #### [facility] [address] [place], [place] CO2 [Moles/Vol] 24 mmol/L Normal 22-30 [facility] Comment on above: Performed By: #### M G3, PHOS3, HEMDF, BMP3M #### [place] [address] [place], [place] Glucose [Mass/Vol] 97 mg/dL Normal 70-100 [facility] Comment on above: Performed By: #### M G3, PHOS3, HEMDF, BMP3M #### [place] [address] [place], [place] Urea nitrogen [Mass/Vol] 9 mg/dL Normal 7-20 [facility] Comment on above: Performed By: #### M G3, PHOS3, HEMDF, BMP3M #### [place] [address] [place], [place] Creatinine [Mass/Vol] 0.39 mg/dL Low 0.52-1.25 [facility] Comment on above: Performed By: #### M G3, PHOS3, HEMDF, BMP3M #### [place] [address] [place], [place] eGFR OTHER > 90.0 Normal >60 [facility] Comment on above: Result Comment: KDIG O [...] #### M G3, PHOS3, HEMDF, BMP3M #### [place] [address] [place], [place] GFR/1.73 sq M.predicted among blacks MDRD (S/P/Bld) [Vol rate/Area] mL/min/{1.73_m2} Normal >60 [facility] Comment on above: Performed By: #### M G3, PHOS3, HEMDF, BMP3M #### [place] [place] [address] Potassium [Moles/Vol] 3.6 mmol/L Normal 3.5-5.1 [facility] Comment on above: Performed By: #### M G3, PHOS3, HEMDF, BMP3M #### [place] [place] [address] Chloride [Moles/Vol] 105 mmol/L Normal 98-107 [facility] Comment on above: Performed By: #### M G3, PHOS3, HEMDF, BMP3M #### [place] [place] [address] Sodium [Moles/Vol] 132 mmol/L Low 135-145 [facility] Comment on above: Performed By: #### M G3, PHOS3, HEMDF, BMP3M #### [place] [address] [place] [address] Free T4on 11-12-2020 Free T4 [Mass/Vol] 1.05 ng/dL Normal 0.78-2.19 [facility] Comment on above: Performed By: #### B MP3 #### [place] [place] [address] Hemogram w/ Autodiffon 11-12 Abs Baso Cnt 0.1 10*3/uL Normal 0.0-0.2 [facility] Comment on above: Performed By: #### M G3, PHOS3, HEMDF, BMP3M #### [place] [place] [address] Abs Neutrophile Cnt 3.7 10*3/uL Normal 1.8-7.0 [facility] Comment on above: Performed By: #### M G3, PHOS3, HEMDF, BMP3M #### [place] [address] [place], [place] Basophils/100 WBC (Bld) 1.0 % Normal 0.0-2.0 [facility] Comment on above: Performed By: #### M G3, PHOS3, HEMDF, BMP3M #### [address] Eosinophils (Bld) [#/Vol] 0.2 10*3/uL Normal 0.0-0.5 [facility] Comment on above: Performed By: #### M G3, PHOS3, HEMDF, BMP3M #### [address] [id number] Eosinophils/100 WBC (Bld) 2.6 % Normal 1.0-6.0 [facility] Comment on above: Performed By: #### M G3, PHOS3, HEMDF, BMP3M #### [address] Erythrocyte distribution width (RBC) [Ratio] 14.2 % Normal 11.5-14.5 [facility] Comment on above: Performed By: #### M G3, PHOS3, HEMDF, BMP3M #### [address] [address] Granulocytes/100 WBC (Bld) 63.1 % Normal 40.0-80.0 [facility] Comment on above: Performed By: #### M G3, PHOS3, HEMDF, BMP3M #### [address] [place] [address] Hematocrit (Bld) [Volume fraction] 38.6 % Normal 35.0-47.0 [facility] Comment on above: Performed By: #### M G3, PHOS3, HEMDF, BMP3M #### [address] [address] [address] [place], [place] Hemoglobin (Bld) [Mass/Vol] 13.1 g/dL Normal 11.7-16.0 [facility] Comment on above: Performed By: #### M G3, PHOS3, HEMDF, BMP3M #### [address] [address] [address] [place], [place] Lymphocytes (Bld) [#/Vol] 1.3 10*3/uL Normal 1.0-4.3 [facility] Comment on above: Performed By: #### M G3, PHOS3, HEMDF, BMP3M #### [address] [address] [address] [place], [place] Lymphocytes/100 WBC (Bld) 22.9 % Normal 20.0-40.0 [facility] Comment on above: Performed By: #### M G3, PHOS3, HEMDF, BMP3M #### [address] [address] [address] [place], [place] MCH (RBC) [Entitic mass] 33.7 pg Normal 26.0-34.0 [facility] Comment on above: Performed By: #### M G3, PHOS3, HEMDF, BMP3M #### [address] [address] [address] [place], [place] MCHC 34.0 % Normal 32.0-36.0 [facility] Comment on above: Performed By: #### M G3, PHOS3, HEMDF, BMP3M #### [address] [address] [address] [place], [place] MCV (RBC) [Entitic vol] 99.1 fL High 79.0-98.0 [facility] Comment on above: Performed By: #### M G3, PHOS3, HEMDF, BMP3M #### [address] [address] [address] [place], [place] Monocytes (Bld) [#/Vol] 0.6 10*3/uL Normal 0.0-0.8 [facility] Comment on above: Performed By: #### M G3, PHOS3, HEMDF, BMP3M #### [facility] [address] [place], [place] Monocytes/100 WBC (Bld) 10.4 % High 2.0-10.0 [facility] Comment on above: Performed By: #### M G3, PHOS3, HEMDF, BMP3M #### [facility] [address] [place], [place] Platelet mean volume (Bld) [Entitic vol] 8.7 fL Normal 7.4-10.4 [facility] Comment on above: Performed By: #### M G3, PHOS3, HEMDF, BMP3M #### [address] [address] [address] [place], [place] Platelets (Bld) [#/Vol] 133 10*3/uL Low 140-440 [facility] Comment on above: Performed By: #### M G3, PHOS3, HEMDF, BMP3M #### [address] [address] [address] [place], [place] RBC (Bld) [#/Vol] 3.90 10*6/uL Normal 3.80-5.20 [facility] Comment on above: Performed By: #### M G3, PHOS3, HEMDF, BMP3M #### [address] [address] [place], [place] WBC (Bld) [#/Vol] 5.9 10*3/uL Normal 3.6-10.7 [facility] Comment on above: Performed By: #### M G3, PHOS3, HEMDF, BMP3M #### [address] [address] [address] [place], [place] Thyroid Stim. Hormoneon 10-16 Thyroid Stim. Hormone 3.729 u[IU]/mL Normal 0.465-4.68 0 [facility] Comment on above: Performed By: #### B MP3 #### [address] [address] [address] [place], [place] Basic Metabolic Panelon 10-15 Calcium [Mass/Vol] 8.6 mg/dL Normal 8.4-10.4 [facility] Comment on above: Performed By: #### M G3, PHOS3, HEMDF, BMP3M #### [facility] [address] [place], [place] Glucose [Mass/Vol] 74 mg/dL Normal 70-100 [facility] Comment on above: Performed By: #### M G3, PHOS3, HEMDF, BMP3M #### [facility] [address] [place], [place] Anion Gap 8 Normal [facility] Comment on above: Performed By: #### M G3, PHOS3, HEMDF, BMP3M #### [facility] [address] [place], [place] CO2 [Moles/Vol] 21 mmol/L Low 22-30 [facility] Comment on above: Performed By: #### M G3, PHOS3, HEMDF, BMP3M #### [facility] [address] [place], [place] Creatinine [Mass/Vol] 0.42 mg/dL Low 0.52-1.25 [facility] Comment on above: Performed By: #### M G3, PHOS3, HEMDF, BMP3M #### [facility] [address] [place], [place] eGFR OTHER > 90.0 Normal >60 [facility] Comment on above: Result Comment: KDIG O [...] #### M G3, PHOS3, HEMDF, BMP3M #### [address] [address] [address] [place], [place] GFR/1.73 sq M.predicted among blacks MDRD (S/P/Bld) [Vol rate/Area] mL/min/{1.73_m2} Normal >60 [facility] Comment on above: Performed By: #### M G3, PHOS3, HEMDF, BMP3M #### [address] [address] [place], [place] Urea nitrogen [Mass/Vol] 4 mg/dL Low 7-20 [facility] Comment on above: Performed By: #### M G3, PHOS3, HEMDF, BMP3M #### [address] [place], [place] Chloride [Moles/Vol] 104 mmol/L Normal 98-107 [facility] Comment on above: Performed By: #### M G3, PHOS3, HEMDF, BMP3M #### [address] [place], [place] Potassium [Moles/Vol] 3.7 mmol/L Normal 3.5-5.1 [facility] Comment on above: Performed By: #### M G3, PHOS3, HEMDF, BMP3M #### [address] [place], [place] Sodium [Moles/Vol] 133 mmol/L Low 135-145 [facility] Comment on above: Performed By: #### M G3, PHOS3, HEMDF, BMP3M #### [address] [address] [place], [place] Hemogram w/ Autodiffon 11-11 Abs Baso Cnt 0.1 10*3/uL Normal 0.0-0.2 [facility] Comment on above: Performed By: #### M G3, PHOS3, HEMDF, BMP3M #### [address] [place], [place] Abs Neutrophile Cnt 3.7 10*3/uL Normal 1.8-7.0 [facility] Comment on above: Performed By: #### M G3, PHOS3, HEMDF, BMP3M #### [address] [place] [address] Basophils/100 WBC (Bld) 1.0 % Normal 0.0-2.0 [facility] Comment on above: Performed By: #### M G3, PHOS3, HEMDF, BMP3M #### [address] [place] [address] Eosinophils (Bld) [#/Vol] 0.2 10*3/uL Normal 0.0-0.5 [facility] Comment on above: Performed By: #### M G3, PHOS3, HEMDF, BMP3M #### [address] [place] [address] Eosinophils/100 WBC (Bld) 2.9 % Normal 1.0-6.0 [facility] Comment on above: Performed By: #### M G3, PHOS3, HEMDF, BMP3M #### [address] [place] [address] Erythrocyte distribution width (RBC) [Ratio] 14.9 % High 11.5-14.5 [facility] Comment on above: Performed By: #### M G3, PHOS3, HEMDF, BMP3M #### [address] [place] [address] Granulocytes/100 WBC (Bld) 64.2 % Normal 40.0-80.0 [facility] Comment on above: Performed By: #### M G3, PHOS3, HEMDF, BMP3M #### [address] [place] [address] Hematocrit (Bld) [Volume fraction] 42.7 % Normal 35.0-47.0 [facility] Comment on above: Performed By: #### M G3, PHOS3, HEMDF, BMP3M #### [address] [place] [address] Hemoglobin (Bld) [Mass/Vol] 14.3 g/dL Normal 11.7-16.0 [facility] Comment on above: Performed By: #### M G3, PHOS3, HEMDF, BMP3M #### [address] [place], [place] Lymphocytes (Bld) [#/Vol] 1.3 10*3/uL Normal 1.0-4.3 [facility] Comment on above: Performed By: #### M G3, PHOS3, HEMDF, BMP3M #### [address] [place], [place] Lymphocytes/100 WBC (Bld) 22.0 % Normal 20.0-40.0 [facility] Comment on above: Performed By: #### M G3, PHOS3, HEMDF, BMP3M #### [address] [place], [place] MCH (RBC) [Entitic mass] 33.5 pg Normal 26.0-34.0 [facility] Comment on above: Performed By: #### Ruben G3, PHOS3, HEMDF, BMP3M #### [address] [place], [place] MCHC 33.4 % Normal 32.0-36.0 [facility] Comment on above: Performed By: #### M G3, PHOS3, HEMDF, BMP3M #### [address] [place], [place] MCV (RBC) [Entitic vol] 100.2 fL High 79.0-98.0 [facility] Comment on above: Performed By: #### M G3, PHOS3, HEMDF, BMP3M #### [address] [place], [place] Monocytes (Bld) [#/Vol] 0.6 10*3/uL Normal 0.0-0.8 [facility] Comment on above: Performed By: #### M G3, PHOS3, HEMDF, BMP3M #### [address] [place], [place] Monocytes/100 WBC (Bld) 9.9 % Normal 2.0-10.0 [facility] Comment on above: Performed By: #### M G3, PHOS3, HEMDF, BMP3M #### [facility] [address] [place], [place] Platelet mean volume (Bld) [Entitic vol] 9.1 fL Normal 7.4-10.4 [facility] Comment on above: Performed By: #### M G3, PHOS3, HEMDF, BMP3M #### [address] [place], [place] Platelets (Bld) [#/Vol] 143 10*3/uL Normal 140-440 [facility] Comment on above: Performed By: #### M G3, PHOS3, HEMDF, BMP3M #### [address] [place], [place] RBC (Bld) [#/Vol] 4.26 10*6/uL Normal 3.80-5.20 [facility] Comment on above: Performed By: #### M G3, PHOS3, HEMDF, BMP3M #### [address] [place], [place] WBC (Bld) [#/Vol] 5.8 10*3/uL Normal 3.6-10.7 [facility] Comment on above: Performed By: #### M G3, PHOS3, HEMDF, BMP3M #### [address] [place], [place] Basic Metabolic Panelon 01-2 Calcium [Mass/Vol] 8.4 mg/dL Normal 8.4-10.4 [facility] Comment on above: Performed By: #### M G3, PHOS3, HEMDF, BMP3M #### [address] [place], [place] Glucose [Mass/Vol] 66 mg/dL Low 70-100 [facility] Comment on above: Performed By: #### M G3, PHOS3, HEMDF, BMP3M #### [address] [place], [place] Anion Gap 9 Normal [facility] Comment on above: Performed By: #### M G3, PHOS3, HEMDF, BMP3M #### [facility] [address] [place], [place] CO2 [Moles/Vol] 20 mmol/L Low 22-30 [facility] Comment on above: Performed By: #### M G3, PHOS3, HEMDF, BMP3M #### [facility] [address] [place], [place] Creatinine [Mass/Vol] 0.38 mg/dL Low 0.52-1.25 [facility] Comment on above: Performed By: #### M G3, PHOS3, HEMDF, BMP3M #### [facility] [address] [place], [place] eGFR OTHER > 90.0 Normal >60 [facility] Comment on above: Result Comment: KDIG O [...] #### M G3, PHOS3, HEMDF, BMP3M #### [facility] [address] [place], [place] GFR/1.73 sq M.predicted among blacks MDRD (S/P/Bld) [Vol rate/Area] mL/min/{1.73_m2} Normal >60 [facility] Comment on above: Performed By: #### M G3, PHOS3, HEMDF, BMP3M #### [facility] [address] [place], [place] Urea nitrogen [Mass/Vol] 6 mg/dL Low 7-20 [facility] Comment on above: Performed By: #### M G3, PHOS3, HEMDF, BMP3M #### [address] [place], [place] Chloride [Moles/Vol] 107 mmol/L Normal 98-107 [facility] Comment on above: Performed By: #### M G3, PHOS3, HEMDF, BMP3M #### [address] [place], [place] Potassium [Moles/Vol] 3.8 mmol/L Normal 3.5-5.1 [facility] Comment on above: Performed By: #### M G3, PHOS3, HEMDF, BMP3M #### [address] [place], [place] Sodium [Moles/Vol] 136 mmol/L Normal 135-145 [facility] Comment on above: Performed By: #### M G3, PHOS3, HEMDF, BMP3M #### [address] [place], [place] Glucose,Bedsideon 11-10-2020 Glucose [Mass/Vol] 114 mg/dL High 70-100 [facility] Comment on above: Result Comment: Test performed by glucose meter. Results may be 10%-15% lower than serum/plasma values. (CLIA ID [id number]) Performed By: #### M G3, PHOS3, HEMDF, BMP3M #### [address] [place], [place] Hemogram w/ Autodiffon 11-10 Abs Baso Cnt 0.0 10*3/uL Normal 0.0-0.2 [facility] Comment on above: Performed By: #### M G3, PHOS3, HEMDF, BMP3M #### [address] [place], [place] Abs Neutrophile Cnt 5.4 10*3/uL Normal 1.8-7.0 [facility] Comment on above: Performed By: #### M G3, PHOS3, HEMDF, BMP3M #### [address] [place], [place] Basophils/100 WBC (Bld) 0.7 % Normal 0.0-2.0 [facility] Comment on above: Performed By: #### M G3, PHOS3, HEMDF, BMP3M #### [address] Eosinophils (Bld) [#/Vol] 0.1 10*3/uL Normal 0.0-0.5 [facility] Comment on above: Performed By: #### M G3, PHOS3, HEMDF, BMP3M #### [address] Eosinophils/100 WBC (Bld) 2.0 % Normal 1.0-6.0 [facility] Comment on above: Performed By: #### M G3, PHOS3, HEMDF, BMP3M #### [address] Erythrocyte distribution width (RBC) [Ratio] 14.5 % Normal 11.5-14.5 [facility] Comment on above: Performed By: #### M G3, PHOS3, HEMDF, BMP3M #### [address] Granulocytes/100 WBC (Bld) 77.2 % Normal 40.0-80.0 [facility] Comment on above: Performed By: #### M G3, PHOS3, HEMDF, BMP3M #### [address] [place], [place] Hematocrit (Bld) [Volume fraction] 40.4 % Normal 35.0-47.0 [facility] Comment on above: Performed By: #### M G3, PHOS3, HEMDF, BMP3M #### [address] Hemoglobin (Bld) [Mass/Vol] 13.6 g/dL Normal 11.7-16.0 [facility] Comment on above: Performed By: #### M G3, PHOS3, HEMDF, BMP3M #### [address] [place], [place] Lymphocytes (Bld) [#/Vol] 1.0 10*3/uL Normal 1.0-4.3 [facility] Comment on above: Performed By: #### M G3, PHOS3, HEMDF, BMP3M #### [address] [place], [place] Lymphocytes/100 WBC (Bld) 13.9 % Low 20.0-40.0 [facility] Comment on above: Performed By: #### M G3, PHOS3, HEMDF, BMP3M #### [address] [place], [place] MCH (RBC) [Entitic mass] 34.2 pg High 26.0-34.0 [facility] Comment on above: Performed By: #### M G3, PHOS3, HEMDF, BMP3M #### [address] [place] MCHC 33.8 % Normal 32.0-36.0 [facility] Comment on above: Performed By: #### M G3, PHOS3, HEMDF, BMP3M #### [address] MCV (RBC) [Entitic vol] 101.2 fL High 79.0-98.0 [facility] Comment on above: Performed By: #### M G3, PHOS3, HEMDF, BMP3M #### [address] [place], [place] Monocytes (Bld) [#/Vol] 0.4 10*3/uL Normal 0.0-0.8 [facility] Comment on above: Performed By: #### M G3, PHOS3, HEMDF, BMP3M #### [address] Monocytes/100 WBC (Bld) 6.2 % Normal 2.0-10.0 [facility] Comment on above: Performed By: #### M G3, PHOS3, HEMDF, BMP3M #### [address] [place], [place] Platelet mean volume (Bld) [Entitic vol] 7.6 fL Normal 7.4-10.4 [facility] Comment on above: Performed By: #### M G3, PHOS3, HEMDF, BMP3M #### [address] [place], [place] Platelets (Bld) [#/Vol] 155 10*3/uL Normal 140-440 [facility] Comment on above: Performed By: #### M G3, PHOS3, HEMDF, BMP3M #### [address] [place], [place] RBC (Bld) [#/Vol] 3.99 10*6/uL Normal 3.80-5.20 [facility] Comment on above: Performed By: #### M G3, PHOS3, HEMDF, BMP3M #### [address] [place], [place] WBC (Bld) [#/Vol] 7.0 10*3/uL Normal 3.6-10.7 [facility] Comment on above: Performed By: #### M G3, PHOS3, HEMDF, BMP3M #### [address] [place], [place] Basic Metabolic Panelon 01-2 Calcium [Mass/Vol] 7.8 mg/dL Low 8.4-10.4 [facility] Comment on above: Performed By: #### M G3, PHOS3, HEMDF, BMP3M #### [address] [place], [place] Anion Gap 6 Normal [facility] Comment on above: Performed By: #### M G3, PHOS3, HEMDF, BMP3M #### [address] [place], [place] CO2 [Moles/Vol] 22 mmol/L Normal 22-30 [facility] Comment on above: Performed By: #### M G3, PHOS3, HEMDF, BMP3M #### [address] [place], [place] Glucose [Mass/Vol] 84 mg/dL Normal 70-100 [facility] Comment on above: Performed By: #### M G3, PHOS3, HEMDF, BMP3M #### [address] Urea nitrogen [Mass/Vol] 16 mg/dL Normal 7-20 [facility] Comment on above: Performed By: #### M G3, PHOS3, HEMDF, BMP3M #### [address] [place], [place] Creatinine [Mass/Vol] 0.38 mg/dL Low 0.52-1.25 [facility] Comment on above: Performed By: #### M G3, PHOS3, HEMDF, BMP3M #### [address] eGFR OTHER > 90.0 Normal >60 [facility] Comment on above: Result Comment: KDIG O [...] #### M G3, PHOS3, HEMDF, BMP3M #### [address] GFR/1.73 sq M.predicted among blacks MDRD (S/P/Bld) [Vol rate/Area] mL/min/{1.73_m2} Normal >60 [facility] Comment on above: Performed By: #### M G3, PHOS3, HEMDF, BMP3M #### [address] [place], [place] Chloride [Moles/Vol] 109 mmol/L High 98-107 [facility] Comment on above: Performed By: #### M G3, PHOS3, HEMDF, BMP3M #### [address] [place], [place] Potassium [Moles/Vol] 3.9 mmol/L Normal 3.5-5.1 [facility] Comment on above: Result Comment: Slig htly hemolysed, interpret with caution. Performed By: #### M G3, PHOS3, HEMDF, BMP3M #### [address] Sodium [Moles/Vol] 137 mmol/L Normal 135-145 [facility] Comment on above: Performed By: #### M G3, PHOS3, HEMDF, BMP3M #### [address] Head or Brain w/o Contras ton 11-09-2020 CT Head or Brain w/o Contrast Patient Name: JAZMIN JOHNSON Computed Tomography ACCESSION EXAM DATE/TIME PROCEDURE ORDERING PROVIDER [id number] 11/09/2020 10:[address] Head or Brain w/o CHRISTIANO EMMANUEL Contrast CPT code 74591 Reason For Exam (CT Head or Brain [...] Transcribed Date and Time: 11/09/2020 10:47 Normal [facility] Hemogram w/ Autodiffon 11-09 Abs Baso Cnt 0.0 10*3/uL Normal 0.0-0.2 [facility] Comment on above: Performed By: #### M G3, PHOS3, HEMDF, BMP3M #### [address] [place] [address] Abs Neutrophile Cnt 3.4 10*3/uL Normal 1.8-7.0 [facility] Comment on above: Performed By: #### M G3, PHOS3, HEMDF, BMP3M #### [address] [place] [address] Basophils/100 WBC (Bld) 0.5 % Normal 0.0-2.0 [facility] Comment on above: Performed By: #### M G3, PHOS3, HEMDF, BMP3M #### [address] [address] Eosinophils (Bld) [#/Vol] 0.1 10*3/uL Normal 0.0-0.5 [facility] Comment on above: Performed By: #### M G3, PHOS3, HEMDF, BMP3M #### [address] [address] Eosinophils/100 WBC (Bld) 1.0 % Normal 1.0-6.0 [facility] Comment on above: Performed By: #### M G3, PHOS3, HEMDF, BMP3M #### [address] [address] Erythrocyte distribution width (RBC) [Ratio] 14.7 % High 11.5-14.5 [facility] Comment on above: Performed By: #### M G3, PHOS3, HEMDF, BMP3M #### [address] [place] Granulocytes/100 WBC (Bld) 62.3 % Normal 40.0-80.0 [facility] Comment on above: Performed By: #### M G3, PHOS3, HEMDF, BMP3M #### [address] [place] Hematocrit (Bld) [Volume fraction] 33.8 % Low 35.0-47.0 [facility] Comment on above: Performed By: #### M G3, PHOS3, HEMDF, BMP3M #### [address] Hemoglobin (Bld) [Mass/Vol] 11.5 g/dL Low 11.7-16.0 [facility] Comment on above: Performed By: #### M G3, PHOS3, HEMDF, BMP3M #### [address] Lymphocytes (Bld) [#/Vol] 1.3 10*3/uL Normal 1.0-4.3 [facility] Comment on above: Performed By: #### M G3, PHOS3, HEMDF, BMP3M #### [address] Lymphocytes/100 WBC (Bld) 24.9 % Normal 20.0-40.0 [facility] Comment on above: Performed By: #### M G3, PHOS3, HEMDF, BMP3M #### [address] MCH (RBC) [Entitic mass] 33.9 pg Normal 26.0-34.0 [facility] Comment on above: Performed By: #### M G3, PHOS3, HEMDF, BMP3M #### [address] MCHC 34.1 % Normal 32.0-36.0 [facility] Comment on above: Performed By: #### M G3, PHOS3, HEMDF, BMP3M #### [facility] [address] [place], [place] MCV (RBC) [Entitic vol] 99.3 fL High 79.0-98.0 [facility] Comment on above: Performed By: #### M G3, PHOS3, HEMDF, BMP3M #### [address] [place], [place] Monocytes (Bld) [#/Vol] 0.6 10*3/uL Normal 0.0-0.8 [facility] Comment on above: Performed By: #### M G3, PHOS3, HEMDF, BMP3M #### [address] [place], [place] Monocytes/100 WBC (Bld) 11.3 % High 2.0-10.0 [facility] Comment on above: Performed By: #### M G3, PHOS3, HEMDF, BMP3M #### [address] [place], [place] Platelet mean volume (Bld) [Entitic vol] 7.9 fL Normal 7.4-10.4 [facility] Comment on above: Performed By: #### M G3, PHOS3, HEMDF, BMP3M #### [address] [place], [place] Platelets (Bld) [#/Vol] 175 10*3/uL Normal 140-440 [facility] Comment on above: Performed By: #### M G3, PHOS3, HEMDF, BMP3M #### [address] [place], [place] RBC (Bld) [#/Vol] 3.40 10*6/uL Low 3.80-5.20 [facility] Comment on above: Performed By: #### M G3, PHOS3, HEMDF, BMP3M #### [address] [place], [place] WBC (Bld) [#/Vol] 5.4 10*3/uL Normal 3.6-10.7 [facility] Comment on above: Performed By: #### M G3, PHOS3, HEMDF, BMP3M #### [facility] [address] [place] [address] Magnesiumon 11-09-2020 Magnesium [Mass/Vol] 1.5 mg/dL Low 1.6-2.3 [facility] Comment on above: Result Comment: Slig htly hemolysed, interpret with caution. Performed By: #### M G3, PHOS3, HEMDF, BMP3M #### [facility] [address] [place] [address] Phosphoruson 11-09-2020 Phosphate [Mass/Vol] 1.6 mg/dL Low 2.5-4.5 [facility] Comment on above: Result Comment: Slig htly hemolysed, interpret with caution. Performed By: #### M G3, PHOS3, HEMDF, BMP3M #### [address] [place] [address] Basic Metabolic Panelon 10-15 Calcium [Mass/Vol] 8.4 mg/dL Normal 8.4-10.4 [facility] Comment on above: Performed By: #### M G3, PHOS3, HEMDF, BMP3M #### [place] [address] [address] [place], [place] Glucose [Mass/Vol] 53 mg/dL Low 70-100 [facility] Comment on above: Performed By: #### M G3, PHOS3, HEMDF, BMP3M #### [place] [address] [address] [place], [place] Urea nitrogen [Mass/Vol] 21 mg/dL High 7-20 [facility] Comment on above: Performed By: #### M G3, PHOS3, HEMDF, BMP3M #### [address] [address] [place] [address] Anion Gap 16 Normal [facility] Comment on above: Performed By: #### M G3, PHOS3, HEMDF, BMP3M #### [facility] [address] [place], [place] CO2 [Moles/Vol] 19 mmol/L Low 22-30 [facility] Comment on above: Performed By: #### M G3, PHOS3, HEMDF, BMP3M #### [facility] [address] [place], [place] Creatinine [Mass/Vol] 0.53 mg/dL Normal 0.52-1.25 [facility] Comment on above: Performed By: #### M G3, PHOS3, HEMDF, BMP3M #### [facility] [address] [place], [place] eGFR OTHER > 90.0 Normal >60 [facility] Comment on above: Result Comment: KDIG O [...] #### M G3, PHOS3, HEMDF, BMP3M #### [facility] [address] [place], [place] GFR/1.73 sq M.predicted among blacks MDRD (S/P/Bld) [Vol rate/Area] mL/min/{1.73_m2} Normal >60 [facility] Comment on above: Performed By: #### M G3, PHOS3, HEMDF, BMP3M #### [place] [address] [address] [place], [place] Chloride [Moles/Vol] 106 mmol/L Normal 98-107 [facility] Comment on above: Performed By: #### M G3, PHOS3, HEMDF, BMP3M #### [place] [place] [address] Potassium [Moles/Vol] 4.3 mmol/L Normal 3.5-5.1 [facility] Comment on above: Result Comment: Slig htly hemolysed, interpret with caution. Performed By: #### M G3, PHOS3, HEMDF, BMP3M #### [facility] [address] [place] [address] Sodium [Moles/Vol] 141 mmol/L Normal 135-145 [facility] Comment on above: Performed By: #### M G3, PHOS3, HEMDF, BMP3M #### [facility] [address] [place] [address] COVID and Resp PCR Panelon 0 11-08-2020 SARS-CoV-2 (COVID-19) RNA CY+probe Ql (Unsp spec) COVID and Resp PCR Panel --> Status: F POSITIVE: SARS-CoV-2 DETECTED. _ Expected Result: Not Detected [employer] Upper Respiratory Pathogens PCR Panel can detect [...] management decisions. This assay was developed by [employer] and distributed under an Emergency Use Authorization (EUA) granted by the FDA for the qualitative detection of SARS-CoV-2 nucleic acid. Provider and patient fact sheets can be found at https://www.fda.gov/me caio/385564/download and https://www.fda.gov/me caio/246043/download. _ Expected Result: Not Detected [employer] Upper Respiratory Pathogens PCR Panel can detect [...] management decisions. This assay was developed by [employer] and distributed under an Emergency Use Authorization (EUA) granted by the FDA for the qualitative detection of SARS-CoV-2 nucleic acid. Provider and patient fact sheets can be found at https://www.[facility].gov/ca caio/708201/download and https://www.[facility].gov/ca caio/424731/download. Abnormal [facility] Comment on above: Performed By: #### M G3, PHOS3, HEMDF, BMP3M #### [facility] [address] [place] [address] CR Chest Portableon 11-08-19 21 CR Chest Portable Patient Name: JAZMIN JOHNSON Diagnostic Radiology ACCESSION EXAM DATE/TIME PROCEDURE ORDERING PROVIDER [id number] 11/08/2020 09:22 EST CR Chest Portable [id number] -GALDINO ROSENBERG CPT code 69878 Reason For Exam (CR Chest Portable) covid [...] Transcribed Date and Time: 11/08/2020 8:32 Normal [facility] CT Head or Brain w/o Contras ton 11-08-2020 CT Head or Brain w/o Contrast [facility]: [id number] Tom[facility] ACCESSION EXAM DATE/TIME PROCEDURE ORDERING PROVIDER [id number] 11/08/2020 14:[address] Head or Brain w/o MD SIDNEY, ANGELICA Contrast CPT code 47125 Reason For Exam (CT Head or Brain [...] Final Dictated: 11/08/2020 3:14 pm Dictating Physician: CAITLYNMD HARLAN Signed Date and Time: 11/08/2020 3:27 pm Signed by: MD BRADY HARLAN Transcribed Date and Time: 11/08/2020 3:15 Normal [facility] Ethanol Serum/Plasmaon 11-08 Ethanol-Serum/Plasma 0.210 g/dL High 0.000-0.010 [facility] Comment on above: Result Comment: NOTE : This result is for medical treatment only. Analysis performed using non-forensic procedures. Performed By: #### E TOH4 #### [facility] [address], [place] Glucose,Bedsideon 11-08-2020 Glucose [Mass/Vol] 139 mg/dL High 70-100 [facility] Comment on above: Result Comment: Test performed by glucose meter. Results may be 10%-15% lower than serum/plasma values. (CLIA ID [id number]) Performed By: #### M G3, PHOS3, HEMDF, BMP3M #### [facility] [address], [place] Glucose [Mass/Vol] 57 mg/dL Low 70-100 [facility] Comment on above: Result Comment: Test performed by glucose meter. Results may be 10%-15% lower than serum/plasma values. (CLIA ID [id number]) Performed By: #### M G3, PHOS3, HEMDF, BMP3M #### [facility] [address], [place] Hepatic Functionon ALP [Catalytic activity/Vol] 86 U/L Normal 38-126 [facility] Comment on above: Result Comment: Slig htly hemolysed, interpret with caution. Performed By: #### E TOH4 #### [facility] [address], [place] ALT [Catalytic activity/Vol] 22 U/L Normal 0-34 [facility] Comment on above: Result Comment: The ALT test is performed by an updated assay method. Please note that the reference intervals have been changed and are now sex specific. Performed By: #### E TOH4 #### [place] [address] [place], [place] AST [Catalytic activity/Vol] 49 U/L High 15-46 [facility] Comment on above: Result Comment: Slig htly hemolysed, interpret with caution. Performed By: #### E TOH4 #### [facility] [address], [place] Bilirubin [Mass/Vol] 0.7 mg/dL Normal 0.2-1.3 [facility] Comment on above: Performed By: #### E TOH4 #### [facility] [address], [place] Bilirubin.indirect [Mass/Vol] 0.0 mg/dL Normal 0.0-0.3 [facility] Comment on above: Performed By: #### E TOH4 #### [place] [address] [address] [place], [place] Protein [Mass/Vol] 7.1 g/dL Normal 6.3-8.2 [facility] Comment on above: Result Comment: Slig htly hemolysed, interpret with caution. Performed By: #### E TOH4 #### [place] [address] [place], [place] Albumin [Mass/Vol] 3.9 g/dL Normal 3.5-5.0 [facility] Comment on above: Result Comment: Slig htly hemolysed, interpret with caution. Performed By: #### E TOH4 #### [place] [address] [place], [place] Protime AND APTTon aPTT Coag (Bld) [Time] 23.1 s Normal 20.0-30.5 [facility] Comment on above: Result Comment: NOTE : The therapeutic time for Heparin anticoagulation, based on Xa activity inhibition, is an APTT of 46-80 seconds. Performed By: #### E TOH4 #### [facility] [address], [place] INR 0.9 Normal 0.9-1.1 [facility] Comment on above: Result Comment: Daniel mmended [...] Infarction Performed By: #### E TOH4 #### [facility] [employer] [facility] [address] [place] [address] PT Coag (PPP) [Time] 10.2 s Normal 9.0-12.0 [facility] [employer] [facility] Comment on above: Result Comment: . Performed By: #### E TOH4 #### [facility] [employer] [facility] [address] [place] [address] Add on test from HISon 11-07 Add on test from HIS Accepted Normal [facility] [place] Comment on above: Result Comment: Spec imen available & acceptable for analysis. Performed By: #### K 3, MG3 #### [facility] [address] [place] [address] CT Head or Brain w/o Contras ton 11-07-2020 CT Head or Brain w/o Contrast Patient Name: JAZMIN JOHNSON Computed Tomography ACCESSION EXAM DATE/TIME PROCEDURE ORDERING PROVIDER [id number] 11/07/2020 19:[address] Head or Brain w/o MD FAINA, OSCAR [place] Contrast CPT code 79627 Reason For Exam (CT Head or Brain [...] Transcribed Date and Time: 11/07/2020 7:29 Normal [facility] Comp Metabolic Panelon 11-07 ALT [Catalytic activity/Vol] 23 U/L Normal 0-34 [facility] Comment on above: Result Comment: The ALT test is performed by an updated assay method. Please note that the reference intervals have been changed and are now sex specific. Performed By: #### B MP3, CK3, TROPN, LFT3, HEMDF, NH33, ETOH4 #### [facility] [address] [place] [address] Calcium [Mass/Vol] 9.5 mg/dL Normal 8.4-10.4 [facility] Comment on above: Performed By: #### B MP3, CK3, TROPN, LFT3, HEMDF, NH33, ETOH4 #### [facility] [address] [place] [address] Glucose [Mass/Vol] 71 mg/dL Normal 70-100 [facility] Comment on above: Performed By: #### B MP3, CK3, TROPN, LFT3, HEMDF, NH33, ETOH4 #### [facility] [address] [place] [address] Urea nitrogen [Mass/Vol] 22 mg/dL High 7-20 [facility] Comment on above: Performed By: #### B MP3, CK3, TROPN, LFT3, HEMDF, NH33, ETOH4 #### [facility] [address] [place] [address] ALP [Catalytic activity/Vol] 128 U/L High 38-126 [facility] Comment on above: Performed By: #### B MP3, CK3, TROPN, LFT3, HEMDF, NH33, ETOH4 #### [facility] [address] [place] [address] Anion Gap 15 Normal [facility] Comment on above: Performed By: #### B MP3, CK3, TROPN, LFT3, HEMDF, NH33, ETOH4 #### [facility] [address] [place] [address] AST [Catalytic activity/Vol] 45 U/L Normal 15-46 [facility] Comment on above: Performed By: #### B MP3, CK3, TROPN, LFT3, HEMDF, NH33, ETOH4 #### [facility] [address] [place] [address] Bilirubin [Mass/Vol] 0.4 mg/dL Normal 0.2-1.3 [facility] Comment on above: Performed By: #### B MP3, CK3, TROPN, LFT3, HEMDF, NH33, ETOH4 #### [facility] [address] [place] [address] CO2 [Moles/Vol] 18 mmol/L Low 22-30 [facility] Comment on above: Performed By: #### B MP3, CK3, TROPN, LFT3, HEMDF, NH33, ETOH4 #### [facility] [address] [place] [address] Creatinine [Mass/Vol] 0.67 mg/dL Normal 0.52-1.25 [facility] Comment on above: Performed By: #### B MP3, CK3, TROPN, LFT3, HEMDF, NH33, ETOH4 #### [facility] [address] [place] [address] GFR/1.73 sq M.predicted among blacks MDRD (S/P/Bld) [Vol rate/Area] mL/min/{1.73_m2} Normal >60 [facility] Comment on above: Performed By: #### B MP3, CK3, TROPN, LFT3, HEMDF, NH33, ETOH4 #### [facility] [address] [place] [address] GFR/1.73 sq M.predicted among non-blacks MDRD (S/P/Bld) [Vol rate/Area] 89.4 mL/min/{1.73_m2} Normal >60 [facility] Comment on above: Result Comment: KDIG [...] CK3, TROPN, LFT3, HEMDF, NH33, ETOH4 #### [facility] [address] [place] [address] Protein [Mass/Vol] 7.9 g/dL Normal 6.3-8.2 [facility] Comment on above: Performed By: #### B MP3, CK3, TROPN, LFT3, HEMDF, NH33, ETOH4 #### [facility] [address] [place] [address] Chloride [Moles/Vol] 112 mmol/L High 98-107 [facility] Comment on above: Performed By: #### B MP3, CK3, TROPN, LFT3, HEMDF, NH33, ETOH4 #### [facility] [address] [place] [address] Potassium [Moles/Vol] 3.8 mmol/L Normal 3.5-5.1 [facility] Comment on above: Performed By: #### B MP3, CK3, TROPN, LFT3, HEMDF, NH33, ETOH4 #### [facility] [address] [place] [address] Sodium [Moles/Vol] 145 mmol/L Normal 135-145 [facility] Comment on above: Performed By: #### B MP3, CK3, TROPN, LFT3, HEMDF, NH33, ETOH4 #### [facility] [address] [place] [address] Albumin [Mass/Vol] 4.5 g/dL Normal 3.5-5.0 [facility] Comment on above: Performed By: #### B MP3, CK3, TROPN, LFT3, HEMDF, NH33, ETOH4 #### [facility] [address] [place] [address] Ethanol Serum/Plasmaon 11-07 Ethanol-Serum/Plasma 0.348 g/dL Critically high 0.000-0.01 0 [facility] Comment on above: Result Comment: NOTE : This result is for medical treatment only. Analysis performed using non-forensic procedures. Performed By: #### B MP3, CK3, TROPN, LFT3, HEMDF, NH33, ETOH4 #### [facility] [address] [place] [address] Hemogram w/ Autodiffon 11-07 Abs Baso Cnt 0.1 10*3/uL Normal 0.0-0.2 [facility] Comment on above: Performed By: #### B MP3, CK3, TROPN, LFT3, HEMDF, NH33, ETOH4 #### [facility] [address] [place] [address] Abs Neutrophile Cnt 7.5 10*3/uL High 1.8-7.0 [facility] Comment on above: Performed By: #### B MP3, CK3, TROPN, LFT3, HEMDF, NH33, ETOH4 #### [facility] [address] [place] [address] Basophils/100 WBC (Bld) 1.1 % Normal 0.0-2.0 [facility] Comment on above: Performed By: #### B MP3, CK3, TROPN, LFT3, HEMDF, NH33, ETOH4 #### [facility] [address] [place] [address] Eosinophils (Bld) [#/Vol] 0.1 10*3/uL Normal 0.0-0.5 [facility] Comment on above: Performed By: #### B MP3, CK3, TROPN, LFT3, HEMDF, NH33, ETOH4 #### [facility] [address] [place] [address] Eosinophils/100 WBC (Bld) 0.5 % Low 1.0-6.0 [facility] Comment on above: Performed By: #### B MP3, CK3, TROPN, LFT3, HEMDF, NH33, ETOH4 #### [facility] [address] [place] [address] Erythrocyte distribution width (RBC) [Ratio] 15.4 % High 11.5-14.5 [facility] Comment on above: Performed By: #### B MP3, CK3, TROPN, LFT3, HEMDF, NH33, ETOH4 #### [facility] [address] [place] [address] Granulocytes/100 WBC (Bld) 72.5 % Normal 40.0-80.0 [facility] Comment on above: Performed By: #### B MP3, CK3, TROPN, LFT3, HEMDF, NH33, ETOH4 #### [facility] [address] [place] [address] Hematocrit (Bld) [Volume fraction] 48.5 % High 35.0-47.0 [facility] Comment on above: Performed By: #### B MP3, CK3, TROPN, LFT3, HEMDF, NH33, ETOH4 #### [facility] [address] [place] [address] Hemoglobin (Bld) [Mass/Vol] 16.1 g/dL High 11.7-16.0 [facility] Comment on above: Performed By: #### B MP3, CK3, TROPN, LFT3, HEMDF, NH33, ETOH4 #### [facility] [address] [place] [address] Lymphocytes (Bld) [#/Vol] 2.4 10*3/uL Normal 1.0-4.3 [facility] Comment on above: Performed By: #### B MP3, CK3, TROPN, LFT3, HEMDF, NH33, ETOH4 #### [facility] [address] [place] [address] Lymphocytes/100 WBC (Bld) 22.6 % Normal 20.0-40.0 [facility] Comment on above: Performed By: #### B MP3, CK3, TROPN, LFT3, HEMDF, NH33, ETOH4 #### [facility] [address] [place] [address] MCH (RBC) [Entitic mass] 33.5 pg Normal 26.0-34.0 [facility] Comment on above: Performed By: #### B MP3, CK3, TROPN, LFT3, HEMDF, NH33, ETOH4 #### [facility] [address] [place] [address] MCHC 33.2 % Normal 32.0-36.0 [facility] Comment on above: Performed By: #### B MP3, CK3, TROPN, LFT3, HEMDF, NH33, ETOH4 #### [facility] [address] [place] [address] MCV (RBC) [Entitic vol] 100.9 fL High 79.0-98.0 [facility] Comment on above: Performed By: #### B MP3, CK3, TROPN, LFT3, HEMDF, NH33, ETOH4 #### [facility] [address] [place] [address] Monocytes (Bld) [#/Vol] 0.3 10*3/uL Normal 0.0-0.8 [facility] Comment on above: Performed By: #### B MP3, CK3, TROPN, LFT3, HEMDF, NH33, ETOH4 #### [facility] [address] [place] [address] Monocytes/100 WBC (Bld) 3.3 % Normal 2.0-10.0 [facility] Comment on above: Performed By: #### B MP3, CK3, TROPN, LFT3, HEMDF, NH33, ETOH4 #### [facility] [address] [place] [address] Platelet mean volume (Bld) [Entitic vol] 7.8 fL Normal 7.4-10.4 [facility] Comment on above: Performed By: #### B MP3, CK3, TROPN, LFT3, HEMDF, NH33, ETOH4 #### [facility] [address] [place] [address] Platelets (Bld) [#/Vol] 350 10*3/uL Normal 140-440 [facility] Comment on above: Performed By: #### B MP3, CK3, TROPN, LFT3, HEMDF, NH33, ETOH4 #### [facility] [address] [place] [address] RBC (Bld) [#/Vol] 4.81 10*6/uL Normal 3.80-5.20 [facility] Comment on above: Performed By: #### B MP3, CK3, TROPN, LFT3, HEMDF, NH33, ETOH4 #### [facility] [address] [place] [address] WBC (Bld) [#/Vol] 10.4 10*3/uL Normal 3.6-10.7 [facility] Comment on above: Performed By: #### B MP3, CK3, TROPN, LFT3, HEMDF, NH33, ETOH4 #### [facility] [address] [place] [address] Magnesiumon 11-07-2020 Magnesium [Mass/Vol] 1.7 mg/dL Normal 1.6-2.3 [facility] Comment on above: Performed By: #### B MP3, CK3, TROPN, LFT3, HEMDF, NH33, ETOH4 #### [facility] [address] [place] [address] Basic Metabolic Panelon 10-14 Calcium [Mass/Vol] 9.6 mg/dL Normal 8.4-10.4 [facility] Comment on above: Performed By: #### B MP3 #### [facility] [address] [place], [place] Anion Gap 6 Normal [facility] Comment on above: Performed By: #### B MP3 #### [facility] [address] [place], [place] CO2 [Moles/Vol] 23 mmol/L Normal 22-30 [facility] Comment on above: Performed By: #### B MP3 #### [facility] [address] [place], [place] Creatinine [Mass/Vol] 0.45 mg/dL Low 0.52-1.25 [facility] Comment on above: Performed By: #### B MP3 #### [facility] [address] [place], [place] eGFR OTHER > 90.0 Normal >60 [facility] Comment on above: Result Comment: KDIG O [...] secretion. Performed By: #### B MP3 #### [facility] [address] [place], [place] GFR/1.73 sq M.predicted among blacks MDRD (S/P/Bld) [Vol rate/Area] mL/min/{1.73_m2} Normal >60 [facility] Comment on above: Performed By: #### B MP3 #### [facility] [address] [place], [place] Glucose [Mass/Vol] 91 mg/dL Normal 70-100 [facility] Comment on above: Performed By: #### B MP3 #### [facility] [address] [place] [address] Urea nitrogen [Mass/Vol] 16 mg/dL Normal 7-20 [facility] Comment on above: Performed By: #### B MP3 #### [facility] [address] [place] [address] Chloride [Moles/Vol] 104 mmol/L Normal 98-107 [facility] Comment on above: Performed By: #### B MP3 #### [facility] [address] [place], [place] Potassium [Moles/Vol] 4.5 mmol/L Normal 3.5-5.1 [facility] Comment on above: Performed By: #### B MP3 #### [facility] [address] [place], [place] Sodium [Moles/Vol] 134 mmol/L Low 135-145 [facility] Comment on above: Performed By: #### B MP3 #### [facility] [address] [place], [place] Anion gap [Moles/Vol] 6 mmol/L [place], [place] Calcium [Mass/Vol] 9.6 mg/dL 8.4 - 10. 4 mg/dL [place], [place] Chloride [Moles/Vol] 104 mmol/L 98 - 107 mmol/L [place] CO2 [Moles/Vol] 23 mmol/L 22 - 30 mmol/L [place] Creatinine [Mass/Vol] 0.45 mg/dL Low 0.52 - 1.25 mg/dL [place], [place] EGFR IF NonAfrican [place] >90.0 >60 mL/min [place], [place] Comment on above: KDIGO guidelines pro [...] MDRD (S/P/Bld) [Vol rate/Area] mL/min/{1.73_m2} >60 mL/min [place], [place] Glucose [Mass/Vol] 91 mg/dL 70 - 100 mg/dL [place], [place] Interpretation and review of laboratory results Abnormal [place], [place] Potassium [Moles/Vol] 4.5 mmol/L 3.5 - 5.1 mmol/L [place] Sodium [Moles/Vol] 134 mmol/L Low 135 - 145 mmol/L [place] Urea nitrogen [Mass/Vol] 16 mg/dL 7 - 20 mg/dL [place], [place] Test Performed by [facility], [address] [place] [id number] [place] [address] Basic Metabolic Panelon 10-14 Anion Gap 8 Normal [facility] Comment on above: Performed By: #### E TOH4 #### [address] [address] Calcium [Mass/Vol] 9.3 mg/dL Normal 8.4-10.4 [facility] Comment on above: Performed By: #### E TOH4 #### [address] [address] CO2 [Moles/Vol] 24 mmol/L Normal 22-30 [facility] Comment on above: Performed By: #### E TOH4 #### [address] [address] Creatinine [Mass/Vol] 0.51 mg/dL Low 0.52-1.25 [facility] Comment on above: Performed By: #### E TOH4 #### [address] [place], [place] eGFR OTHER > 90.0 Normal >60 [facility] Comment on above: Result Comment: KDIG O [...] secretion. Performed By: #### E TOH4 #### [place] [address] [address] [place], [place] GFR/1.73 sq M.predicted among blacks MDRD (S/P/Bld) [Vol rate/Area] mL/min/{1.73_m2} Normal >60 [facility] Comment on above: Performed By: #### E TOH4 #### [address] [place], [place] Glucose [Mass/Vol] 97 mg/dL Normal 70-100 [facility] Comment on above: Performed By: #### E TOH4 #### [address] [place], [place] Urea nitrogen [Mass/Vol] 13 mg/dL Normal 7-20 [facility] Comment on above: Performed By: #### E TOH4 #### [address] Chloride [Moles/Vol] 102 mmol/L Normal 98-107 [facility] Comment on above: Performed By: #### E TOH4 #### [address] Potassium [Moles/Vol] 4.5 mmol/L Normal 3.5-5.1 [facility] Comment on above: Performed By: #### E TOH4 #### [facility] [address] [place], [place] Sodium [Moles/Vol] 133 mmol/L Low 135-145 [facility] Comment on above: Performed By: #### E TOH4 #### [facility] [address] [place], [place] Anion gap [Moles/Vol] 8 mmol/L [place], [place] Calcium [Mass/Vol] 9.3 mg/dL 8.4 - 10. 4 mg/dL [place] Chloride [Moles/Vol] 102 mmol/L 98 - 107 mmol/L [place] CO2 [Moles/Vol] 24 mmol/L 22 - 30 mmol/L [place] Creatinine [Mass/Vol] 0.51 mg/dL Low 0.52 - 1.25 mg/dL [place] EGFR IF NonAfrican [place] >90.0 >60 mL/min [place] Comment on above: KDIGO guidelines pro [...] MDRD (S/P/Bld) [Vol rate/Area] mL/min/{1.73_m2} >60 mL/min [place] Glucose [Mass/Vol] 97 mg/dL 70 - 100 mg/dL [place], [place] Interpretation and review of laboratory results Abnormal [place] Potassium [Moles/Vol] 4.5 mmol/L 3.5 - 5.1 mmol/L [place] Sodium [Moles/Vol] 133 mmol/L Low 135 - 145 mmol/L [place] Urea nitrogen [Mass/Vol] 13 mg/dL 7 - 20 mg/dL [place] Test Performed by [facility], [address] [place] [id number] [place] [address] Basic Metabolic Panelon Calcium [Mass/Vol] 10.3 mg/dL Normal 8.4-10.4 [facility] Comment on above: Performed By: #### M G3, PHOS3, HEMDF, BMP3M #### [address] [address] Anion Gap 9 Normal [facility] Comment on above: Performed By: #### M G3, PHOS3, HEMDF, BMP3M #### [address] [address] CO2 [Moles/Vol] 26 mmol/L Normal 22-30 [facility] Comment on above: Performed By: #### M G3, PHOS3, HEMDF, BMP3M #### [address] [address] Creatinine [Mass/Vol] 0.36 mg/dL Low 0.52-1.25 [facility] Comment on above: Performed By: #### M G3, PHOS3, HEMDF, BMP3M #### [address] [address] eGFR OTHER > 90.0 Normal >60 [facility] Comment on above: Result Comment: KDIG O [...] #### M G3, PHOS3, HEMDF, BMP3M #### [facility] [address] [place] [address] GFR/1.73 sq M.predicted among blacks MDRD (S/P/Bld) [Vol rate/Area] mL/min/{1.73_m2} Normal >60 [facility] Comment on above: Performed By: #### Ruben G3, PHOS3, HEMDF, BMP3M #### [address] [place] [address] Glucose [Mass/Vol] 126 mg/dL High 70-100 [facility] Comment on above: Performed By: #### Ruben G3, PHOS3, HEMDF, BMP3M #### [facility] [address] [place] [address] Urea nitrogen [Mass/Vol] 12 mg/dL Normal 7-20 [facility] Comment on above: Performed By: #### M G3, PHOS3, HEMDF, BMP3M #### [facility] [address] [place] [address] Chloride [Moles/Vol] 94 mmol/L Low 98-107 [facility] Comment on above: Performed By: #### M G3, PHOS3, HEMDF, BMP3M #### [facility] [address] [place] [address] Potassium [Moles/Vol] 3.8 mmol/L Normal 3.5-5.1 [facility] Comment on above: Performed By: #### M G3, PHOS3, HEMDF, BMP3M #### [facility] [address] [place] [address] Sodium [Moles/Vol] 129 mmol/L Low 135-145 [facility] Comment on above: Performed By: #### M G3, PHOS3, HEMDF, BMP3M #### [address] [address] Anion gap [Moles/Vol] 9 mmol/L [place], [place] Calcium [Mass/Vol] 10.3 mg/dL 8.4 - 10. 4 mg/dL [place], [place] Chloride [Moles/Vol] 94 mmol/L Low 98 - 107 mmol/L [place] CO2 [Moles/Vol] 26 mmol/L 22 - 30 mmol/L [place] Creatinine [Mass/Vol] 0.36 mg/dL Low 0.52 - 1.25 mg/dL [place] EGFR IF NonAfrican [place]olan >90.0 >60 mL/min [place] Comment on above: KDIGO guidelines pro [...] MDRD (S/P/Bld) [Vol rate/Area] mL/min/{1.73_m2} >60 mL/min [place] Glucose [Mass/Vol] 126 mg/dL High 70 - 100 mg/dL [place], [place] Interpretation and review of laboratory results Abnormal [place] Potassium [Moles/Vol] 3.8 mmol/L 3.5 - 5.1 mmol/L [place] Sodium [Moles/Vol] 129 mmol/L Low 135 - 145 mmol/L [place] Urea nitrogen [Mass/Vol] 12 mg/dL 7 - 20 mg/dL [place], [place] Magnesiumon 10-22-2020 Magnesium [Mass/Vol] 1.6 mg/dL Normal 1.6-2.3 [facility] Comment on above: Performed By: #### M G3, PHOS3, HEMDF, BMP3M #### [address] [address] Magnesium [Mass/Vol] 1.6 mg/dL 1.6 - 2.3 mg/dL [place], [place] Otheron 10-22-2020 Test Performed by [facility], [address] [place] [address] [place], [place] BASIC METABOLIC PANELon Anion gap [Moles/Vol] 5 mmol/L [place], [place] Calcium [Mass/Vol] 8.9 mg/dL 8.4 - 10. 4 mg/dL [place], [place] Chloride [Moles/Vol] 98 mmol/L 98 - 107 mmol/L [place] CO2 [Moles/Vol] 26 mmol/L 22 - 30 mmol/L [place] Creatinine [Mass/Vol] 0.34 mg/dL Low 0.52 - 1.25 mg/dL [place], [place] EGFR IF NonAfrican [place]olan >90.0 >60 mL/min [place] Comment on above: KDIGO guidelines pro [...] MDRD (S/P/Bld) [Vol rate/Area] mL/min/{1.73_m2} >60 mL/min [place] Glucose [Mass/Vol] 105 mg/dL High 70 - 100 mg/dL [place] Potassium [Moles/Vol] 3.8 mmol/L 3.5 - 5.1 mmol/L [place], [place] Sodium [Moles/Vol] 129 mmol/L Low 135 - 145 mmol/L [place] Urea nitrogen [Mass/Vol] 13 mg/dL 7 - 20 mg/dL [place] Basic Metabolic Panelon Calcium [Mass/Vol] 8.9 mg/dL Normal 8.4-10.4 [facility] Comment on above: Performed By: #### B MP3 #### [address] [place], [place] Glucose [Mass/Vol] 105 mg/dL High 70-100 [facility] Comment on above: Performed By: #### B MP3 #### [facility] [address], [place] Anion Gap 5 Normal [facility] Comment on above: Performed By: #### B MP3 #### [facility] [address], [place] CO2 [Moles/Vol] 26 mmol/L Normal 22-30 [facility] Comment on above: Performed By: #### B MP3 #### [facility] [address], [place] Creatinine [Mass/Vol] 0.34 mg/dL Low 0.52-1.25 [facility] Comment on above: Performed By: #### B MP3 #### [facility] [address], [place] eGFR OTHER > 90.0 Normal >60 [facility] Comment on above: Result Comment: KDIG O [...] secretion. Performed By: #### B MP3 #### [address] GFR/1.73 sq M.predicted among blacks MDRD (S/P/Bld) [Vol rate/Area] mL/min/{1.73_m2} Normal >60 [facility] Comment on above: Performed By: #### B MP3 #### [address] Urea nitrogen [Mass/Vol] 13 mg/dL Normal 7-20 [facility] Comment on above: Performed By: #### B MP3 #### [address] Chloride [Moles/Vol] 98 mmol/L Normal 98-107 [facility] Comment on above: Performed By: #### B MP3 #### [address] Potassium [Moles/Vol] 3.8 mmol/L Normal 3.5-5.1 [facility] Comment on above: Performed By: #### B MP3 #### [address] Sodium [Moles/Vol] 129 mmol/L Low 135-145 [facility] Comment on above: Performed By: #### B MP3 #### [address] CBC auto differentialon 01-0 Absolute Baso # 0.1 10*3/uL 0 - 0.2 10*3/uL [place], [place] Absolute Neut # 4.4 10*3/uL 1.8 - 7 10*3/uL [place], [place] Basophils/100 WBC (Bld) 0.9 % 0 - 2 % [place] Eosinophils (Bld) [#/Vol] 0.0 10*3/uL 0 - 0.5 10*3/uL [place] Eosinophils/100 WBC (Bld) 0.6 % Low 1 - 6 % [place] Erythrocyte distribution width (RBC) [Ratio] 14.2 % 11.5 - 14.5 % [place] Granulocytes/100 WBC (Bld) 72.3 % 40 - 80 % [place] Hematocrit (Bld) [Volume fraction] 38.1 % 35 - 47 % [place] Hemoglobin (Bld) [Mass/Vol] 12.9 g/dL 11.7 - 16 g/dL [place], [place] Interpretation and review of laboratory results Abnormal [place] Lymphocytes (Bld) [#/Vol] 1.1 10*3/uL 1 - 4.3 10*3/uL [place], [place] Lymphocytes/100 WBC (Bld) 17.7 % Low 20 - 40 % [place] MCH (RBC) [Entitic mass] 33.5 pg 26 - 34 pg [place] MCHC (RBC) [Mass/Vol] 33.9 % 32 - 36 % [place] MCV (RBC) [Entitic vol] 98.8 fL High 79 - 98 fL [place], [place] Monocytes (Bld) [#/Vol] 0.5 10*3/uL 0 - 0.8 10*3/uL [place], [place] Monocytes/100 WBC (Bld) 8.5 % 2 - 10 % [place] Platelet mean volume (Bld) [Entitic vol] 8.8 fL 7.4 - 10.4 fL [place] Platelets (Bld) [#/Vol] 147 10*3/uL 140 - 440 10*3/uL [place] RBC (Bld) [#/Vol] 3.86 10*6/uL 3.8 - 5.2 10*6/uL [place] WBC (Bld) [#/Vol] 6.1 10*3/uL 3.6 - 10.7 10*3/uL [place] Test Performed by [facility], [address] [place] [address] [place] CT HEAD WO CONTRASTon 2020 Patient Name: JAZMIN JOHNSON Computed Tomography ACCESSION EXAM DATE/TIME PROCEDURE ORDERING PROVIDER [id number] 10/21/2020 04:[address] Head or Brain w/o MD CL, JAJA Contrast CPT code 10563 Reason For Exam (CT Head or Brain [...] Diminished cerebral volume. Report Dictated on Workstation: [email or web address] --- Final --- Dictated: 10/21/2020 4:58 am Dictating Physician: MD GUZMAN JEFFREY Signed Date and Time: 10/21/2020 5:00 am Signed by: MD GUZMAN JEFFREY Transcribed Date and Time: 10/21/2020 4:58 [place], [facility] Incoming Radiology Results From [facility] - 10/21/2020 5:01 AM EST Patient Name: JAZMIN JOHNSON Computed Tomography ACCESSION EXAM DATE/TIME PROCEDURE ORDERING PROVIDER [id number] 10/21/2020 04:[address] Head or Brain w/o MD CL, JAJA Contrast CPT code 62945 Reason For Exam (CT Head or Brain [...] Diminished cerebral volume. Report Dictated on Workstation: [facility] --- Final --- Dictated: 10/21/2020 4:58 am Dictating Physician: MD GUZMAN JEFFREY Signed Date and Time: 10/21/2020 5:00 am Signed by: MD GUZMAN JEFFREY Transcribed Date and Time: 10/21/2020 4:58 [place] CT Head or Brain w/o Contras ton 10-21-2020 CT Head or Brain w/o Contrast Patient Name: JAZMIN JOHNSON Computed Tomography ACCESSION EXAM DATE/TIME PROCEDURE ORDERING PROVIDER [id number] 10/21/2020 04:[address] Head or Brain w/o MD CL, JAJA Contrast CPT code 71131 Reason For Exam (CT Head or Brain [...] Diminished cerebral volume. Report Dictated on Workstation: [email or web address] Final Dictated: 10/21/2020 4:58 am Dictating Physician: MD GUZMAN JEFFREY Signed Date and Time: 10/21/2020 5:00 am Signed by: MD GUZMAN JEFFREY Transcribed Date and Time: 10/21/2020 4:58 Normal [facility] EKG 12 Lead - Chest Painon 0 10-21-2020 [facility] Test Date: 2020-10-19 Pat Name: Jazmin Johnson Department: Room: 444 Gender: F [place]: [place] : 1950 Requested By: ALEJANDRO AGUILAR Order Number: [id number] Reading MD: Rd Rankin Measurements Intervals [place] Rate: 112 P: 61 ID: 128 QRS: -33 QRSD: 90 T: 70 QT: 344 QTc: 470 Interpretive Statements SINUS TACHYCARDIA LEFT AXIS DEVIATION BASELINE WANDER IN LEAD(S) V1,V3,V5 No previous ECG available for comparison Electronically Signed On 10-21-2020 7:09:51 EST by [facility] Incoming Cardiology Results From [facility] - 10/21/2020 7:10 AM EST [facility] Test Date: 2020-10-19 Pat Name: Jazmin Huertar Department: Room: 444 Gender: F [place]: [place] : 1950 Requested By: ALEJANDRO AGUILAR Order Number: [id number] Reading JONY Rankin Measurements Intervals [place]ney Rate: 112 P: 61 ID: 128 QRS: -33 QRSD: 90 T: 70 QT: 344 QTc: 470 Interpretive Statements SINUS TACHYCARDIA LEFT AXIS DEVIATION BASELINE WANDER IN LEAD(S) V1,V3,V5 No previous ECG available for comparison Electronically Signed On 10-21-2020 7:09:51 EST by [facility] [place], [place] Hemogram w/ Autodiffon 10-21 Abs Baso Cnt 0.1 10*3/uL Normal 0.0-0.2 [facility] Comment on above: Performed By: #### B MP3 #### [facility] [address], [place] Abs Neutrophile Cnt 4.4 10*3/uL Normal 1.8-7.0 [facility] Comment on above: Performed By: #### B MP3 #### [facility] [address], [place] Basophils/100 WBC (Bld) 0.9 % Normal 0.0-2.0 [facility] Comment on above: Performed By: #### B MP3 #### [facility] [address], [place] Eosinophils (Bld) [#/Vol] 0.0 10*3/uL Normal 0.0-0.5 [facility] Comment on above: Performed By: #### B MP3 #### [facility] DocuTAP [facility] [address], [place] Eosinophils/100 WBC (Bld) 0.6 % Low 1.0-6.0 [facility] Comment on above: Performed By: #### B MP3 #### [facility] [address], [place] Erythrocyte distribution width (RBC) [Ratio] 14.2 % Normal 11.5-14.5 [facility] Comment on above: Performed By: #### B MP3 #### [facility] [address], [place] Granulocytes/100 WBC (Bld) 72.3 % Normal 40.0-80.0 [facility] Comment on above: Performed By: #### B MP3 #### [facility] [address], [place] Hematocrit (Bld) [Volume fraction] 38.1 % Normal 35.0-47.0 [facility] Comment on above: Performed By: #### B MP3 #### [facility] [address], [place] Hemoglobin (Bld) [Mass/Vol] 12.9 g/dL Normal 11.7-16.0 [facility] Comment on above: Performed By: #### B MP3 #### [facility] [address], [place] Lymphocytes (Bld) [#/Vol] 1.1 10*3/uL Normal 1.0-4.3 [facility] Comment on above: Performed By: #### B MP3 #### [facility] [address], [place] Lymphocytes/100 WBC (Bld) 17.7 % Low 20.0-40.0 [facility] Comment on above: Performed By: #### B MP3 #### [facility] [address], [place] MCH (RBC) [Entitic mass] 33.5 pg Normal 26.0-34.0 [facility] Comment on above: Performed By: #### B MP3 #### [facility] [address], [place] MCHC 33.9 % Normal 32.0-36.0 [facility] Comment on above: Performed By: #### B MP3 #### [facility] [address], [place] MCV (RBC) [Entitic vol] 98.8 fL High 79.0-98.0 [facility] Comment on above: Performed By: #### B MP3 #### [facility] [address], [place] Monocytes (Bld) [#/Vol] 0.5 10*3/uL Normal 0.0-0.8 [facility] Comment on above: Performed By: #### B MP3 #### [facility] [address], [place] Monocytes/100 WBC (Bld) 8.5 % Normal 2.0-10.0 [facility] Comment on above: Performed By: #### B MP3 #### [facility] [address] [place] [address] Platelet mean volume (Bld) [Entitic vol] 8.8 fL Normal 7.4-10.4 [facility] Comment on above: Performed By: #### B MP3 #### [facility] [address] [place] [address] Platelets (Bld) [#/Vol] 147 10*3/uL Normal 140-440 [facility] Comment on above: Performed By: #### B MP3 #### [address] [place] [address] RBC (Bld) [#/Vol] 3.86 10*6/uL Normal 3.80-5.20 [facility] Comment on above: Performed By: #### B MP3 #### [address] [place] [address] WBC (Bld) [#/Vol] 6.1 10*3/uL Normal 3.6-10.7 [facility] Comment on above: Performed By: #### B MP3 #### [address] [place] [address] Magnesiumon 10-21-2020 Magnesium [Mass/Vol] 1.5 mg/dL Low 1.6-2.3 [facility] Comment on above: Performed By: #### B MP3 #### [address] [place] [address] Magnesium [Mass/Vol] 1.5 mg/dL Low 1.6 - 2.3 mg/dL [place], [place] Otheron 10-21-2020 Interpretation and review of laboratory results Abnormal [place] Test Performed by [address] [place] [address] [place] APTTon 10-20-2020 aPTT Coag (Bld) [Time] 22.9 s Normal 20.0-30.5 [facility] Comment on above: Result Comment: NOTE : The therapeutic time for Heparin anticoagulation, based on Xa activity inhibition, is an APTT of 46-80 seconds. Performed By: #### B MP3 #### [facility] [address] [place] [address] Basic Metabolic Panelon 01-0 Anion Gap 6 Normal [facility] Comment on above: Performed By: #### B MP3 #### [facility] [address] [place] [address] Calcium [Mass/Vol] 7.7 mg/dL Low 8.4-10.4 [facility] Comment on above: Performed By: #### B MP3 #### [facility] [address] [place] [address] CO2 [Moles/Vol] 26 mmol/L Normal 22-30 [facility] Comment on above: Performed By: #### B MP3 #### [facility] [address] [place] [address] Glucose [Mass/Vol] 91 mg/dL Normal 70-100 [facility] Comment on above: Performed By: #### B MP3 #### [facility] [address] [place] [address] Urea nitrogen [Mass/Vol] 13 mg/dL Normal 7-20 [facility] Comment on above: Performed By: #### B MP3 #### [facility] [address] [place] [address] Creatinine [Mass/Vol] 0.41 mg/dL Low 0.52-1.25 [facility] Comment on above: Performed By: #### B MP3 #### [facility] [address] [place] [address] eGFR OTHER > 90.0 Normal >60 [facility] Comment on above: Result Comment: KDIG O [...] secretion. Performed By: #### B MP3 #### [facility] [address], [place] GFR/1.73 sq M.predicted among blacks MDRD (S/P/Bld) [Vol rate/Area] mL/min/{1.73_m2} Normal >60 [facility] Comment on above: Performed By: #### B MP3 #### [address] [place], [place] Potassium [Moles/Vol] 3.3 mmol/L Low 3.5-5.1 [facility] Comment on above: Performed By: #### B MP3 #### [address] [place], [place] Chloride [Moles/Vol] 105 mmol/L Normal 98-107 [facility] Comment on above: Performed By: #### B MP3 #### [address] [place], [place] Sodium [Moles/Vol] 136 mmol/L Normal 135-145 [facility] Comment on above: Performed By: #### B MP3 #### [address] [place], [place] Basic Metabolic Panel w/ Ref sandra to MGon 10-20-2020 Anion gap [Moles/Vol] 6 mmol/L [facility], [place] Calcium [Mass/Vol] 7.7 mg/dL Low 8.4 - 10. 4 mg/dL [facility], [place] Chloride [Moles/Vol] 105 mmol/L 98 - 107 mmol/L [facility], [place] CO2 [Moles/Vol] 26 mmol/L 22 - 30 mmol/L [facility], [place] Creatinine [Mass/Vol] 0.41 mg/dL Low 0.52 - 1.25 mg/dL [facility], [place] EGFR IF NonAfrican Angolan >90.0 >60 mL/min [place] Comment on above: KDIGO guidelines pro [...] MDRD (S/P/Bld) [Vol rate/Area] mL/min/{1.73_m2} >60 mL/min [place] Glucose [Mass/Vol] 91 mg/dL 70 - 100 mg/dL [place], [place] Potassium [Moles/Vol] 3.3 mmol/L Low 3.5 - 5.1 mmol/L [place], [place] Sodium [Moles/Vol] 136 mmol/L 135 - 145 mmol/L [place] Urea nitrogen [Mass/Vol] 13 mg/dL 7 - 20 mg/dL [place], [place] CBC auto differentialon Absolute Baso # 0.1 10*3/uL 0 - 0.2 10*3/uL [place], [place] Absolute Neut # 6.8 10*3/uL 1.8 - 7 10*3/uL [place], [place] Basophils/100 WBC (Bld) 0.9 % 0 - 2 % [place] Eosinophils (Bld) [#/Vol] 0.0 10*3/uL 0 - 0.5 10*3/uL [place] Eosinophils/100 WBC (Bld) 0.1 % Low 1 - 6 % [place] Erythrocyte distribution width (RBC) [Ratio] 14.8 % High 11.5 - 14.5 % [place] Granulocytes/100 WBC (Bld) 79.5 % 40 - 80 % [place] Hematocrit (Bld) [Volume fraction] 33.3 % Low 35 - 47 % [place] Hemoglobin (Bld) [Mass/Vol] 11.6 g/dL Low 11.7 - 16 g/dL [place] Interpretation and review of laboratory results Abnormal [place] Lymphocytes (Bld) [#/Vol] 1.0 10*3/uL 1 - 4.3 10*3/uL [place] Lymphocytes/100 WBC (Bld) 12.2 % Low 20 - 40 % [place] MCH (RBC) [Entitic mass] 34.4 pg High 26 - 34 pg [place] MCHC (RBC) [Mass/Vol] 34.9 % 32 - 36 % [place] MCV (RBC) [Entitic vol] 98.7 fL High 79 - 98 fL [place], [place] Monocytes (Bld) [#/Vol] 0.6 10*3/uL 0 - 0.8 10*3/uL [place], [place] Monocytes/100 WBC (Bld) 7.3 % 2 - 10 % [place] Platelet mean volume (Bld) [Entitic vol] 9.2 fL 7.4 - 10.4 fL [place] Platelets (Bld) [#/Vol] 121 10*3/uL Low 140 - 440 10*3/uL [place] RBC (Bld) [#/Vol] 3.38 10*6/uL Low 3.8 - 5.2 10*6/uL [place] WBC (Bld) [#/Vol] 8.5 10*3/uL 3.6 - 10.7 10*3/uL [place] Test Performed by [facility] DocuTAP [facility], [address] [place] [address] [place], [place] CR Elbow 2 Views Lefton 0 CR Elbow 2 Views Left Patient Name: JAZMIN HOLDER Diagnostic Radiology ACCESSION EXAM DATE/TIME PROCEDURE ORDERING PROVIDER [id number] 10/20/2020 13:55 EST CR Elbow 2 Views Left MD TRINIDAD KEVIN CPT code 24364 Reason For Exam (CR Elbow 2 Views [...] in 7-10 days. Report Dictated on Workstation: [email or web address] Final Dictated: 10/20/2020 1:32 pm Dictating Physician: MD CROWELL ANTHONY J Signed Date and Time: 10/20/2020 1:35 pm Signed by: MD CROWELL ANTHONY J Transcribed Date and Time: 10/20/2020 1:32 Normal [facility] CT Head or Brain w/o Contras ton 10-20-2020 CT Head or Brain w/o Contrast Patient Name: JAZMIN JOHNSON Computed Tomography ACCESSION EXAM DATE/TIME PROCEDURE ORDERING PROVIDER [id number] 10/20/2020 05:[address] Head or Brain w/o Bharat GARLAND, JOSE ALBERTO Contrast ZELAYA CPT code 53302 Reason For Exam (CT Head or Brain [...] 12 hours ago. Report Dictated on Workstation: [email or web address] Final Dictated: 10/20/2020 5:29 am Dictating Physician: MD GUZMAN JEFFREY Signed Date and Time: 10/20/2020 5:42 am Signed by: MD GUZMAN JEFFREY Transcribed Date and Time: 10/20/2020 5:29 Normal [facility] CT head without contraston 0 10-20-2020 Patient Name: JAZMIN JOHNSON Computed Tomography ACCESSION EXAM DATE/TIME PROCEDURE ORDERING PROVIDER [id number] 10/20/2020 05:[address] Head or Brain w/o Bharat GARLAND, JOSE ALBERTO Contrast [facility] CPT code 21056 Reason For Exam (CT Head or Brain [...] 12 hours ago. Report Dictated on Workstation: [email or web address] --- Final --- Dictated: 10/20/2020 5:29 am Dictating Physician: MD GUZMAN JEFFREY Signed Date and Time: 10/20/2020 5:42 am Signed by: MD GUZMAN JEFFREY Transcribed Date and Time: 10/20/2020 5:29 [place] Incoming Radiology Results From [facility] - 10/20/2020 5:43 AM EST Patient Name: JAZMIN JOHNSON Computed Tomography ACCESSION EXAM DATE/TIME PROCEDURE ORDERING PROVIDER [id number] 10/20/2020 05:[address] Head or Brain w/o Bharat GARLAND, JOSE ALBERTO Contrast ZELAYA CPT code 15379 Reason For Exam (CT Head or Brain [...] 12 hours ago. Report Dictated on Workstation: [facility] --- Final --- Dictated: 10/20/2020 5:29 am Dictating Physician: MD GUZMAN JEFFREY Signed Date and Time: 10/20/2020 5:42 am Signed by: MD GUZMAN JEFFREY Transcribed Date and Time: 10/20/2020 5:29 [facility] [place] CTA HEAD NECK W WO CONTRASTo n 10-20-2020 [place] Incoming Radiology Results From [facility] - 10/20/2020 12:48 PM EST Patient Name: JAZMIN JOHNSON Computed Tomography ACCESSION EXAM DATE/TIME PROCEDURE ORDERING PROVIDER [id number] 10/20/2020 11:49 EST CTA Head/Neck w/ + w/o MD CL, JAJA contrast CPT code 45705 28440 Q9967 Reason For Exam (CTA Head/Neck w/ [...] NELSON Transcribed Date and Time: 10/20/2020 12:44 [place] [facility] Name[id number] Tomography ACCESSION EXAM DATE/TIME PROCEDURE ORDERING PROVIDER [id number] 10/20/2020 11:49 EST CTA Head/Neck w/ + w/o MD CL, JAJA contrast CPT code 87131 44819 Q9967 Reason For Exam (CTA Head/Neck w/ [...] NELSON Transcribed Date and Time: 10/20/2020 12:44 [place] CTA Head/Neck w/ + w/o contr marilynn 10-20-2020 CTA Head/Neck w/ + w/o contrast Patient Name: JAZMIN JOHNSON Computed Tomography ACCESSION EXAM DATE/TIME PROCEDURE ORDERING PROVIDER [id number] 10/20/2020 11:49 EST CTA Head/Neck w/ + w/o MD CL, JAJA contrast CPT code 87326 28810 Q9967 Reason For Exam (CTA Head/Neck w/ [...] Transcribed Date and Time: 10/20/2020 12:44 Normal [facility] Complete Urinalysison 2020 Appearance (U) Clear Normal Clear [facility] Comment on above: Result Comment: . Performed By: #### E TOH4 #### [address] [address] Bilirubin,Urine Negative Normal Negative [facility] Comment on above: Result Comment: . Performed By: #### E TOH4 #### [facility] [address], [place] Color (U) Yellow Normal Lt. Yellow [facility] Comment on above: Result Comment: . Performed By: #### E TOH4 #### [address] [address], [place] Glucose Ql (U) Normal Normal Normal (<70) [facility] Comment on above: Result Comment: . Performed By: #### E TOH4 #### [address] [address] [place], [place] Ketone,Urine 40 mg/dL Abnormal Negative [facility] Comment on above: Result Comment: . Performed By: #### E TOH4 #### [address] [address] [address] [place], [place] Leukocytes,Urine Negative Normal Negative [facility] Comment on above: Result Comment: . Performed By: #### E TOH4 #### [place] [address] [address] [place], [place] Nitrites,Urine Negative Normal Negative [facility] Comment on above: Result Comment: . Performed By: #### E TOH4 #### [place] [address] [address] [place], [place] Occult Blood,Urine Negative Normal Negative [facility] Comment on above: Result Comment: . Performed By: #### E TOH4 #### [place] [address] [address] [place], [place] pH,Urine 8.0 Normal 5.0-8.0 [facility] Comment on above: Result Comment: . Performed By: #### E TOH4 #### [place] [address] [address] [place], [place] Protein (U) [Mass/Vol] 20 mg/dL Abnormal Negative [facility] Comment on above: Result Comment: . Performed By: #### E TOH4 #### [place] [address] [address] [place], [place] Specific [place],Urine > 1.030 Abnormal 1.005 - 1.030 [facility] Comment on above: Result Comment: . Performed By: #### E TOH4 #### [facility] [address] [place] [place] [address] Urobilinogen,Urine 2 mg/dL Abnormal Normal (0-1) [facility] Comment on above: Result Comment: . Performed By: #### E TOH4 #### [facility] [address] [place] [address] Drugs of Abuseon 10-20-2020 Opiates, Ur Negative Normal [facility] Comment on above: Performed By: #### E TOH4 #### [place] [address] [place] [address] Phencyclidine (PCP), Ur Negative Normal [facility] Comment on above: Result Comment: The expected [...] order. Performed By: #### E TOH4 #### [facility] [address] [facility] [place] [address] Methadone, Ur Negative Normal [facility] Comment on above: Performed By: #### E TOH4 #### [place] [address] [address] [facility] [place] [address] Benzodiazepines, Ur Negative Normal [facility] Comment on above: Performed By: #### E TOH4 #### [facility] [address] [facility] [address] Cocaine, Ur Negative Normal [facility] Comment on above: Performed By: #### E TOH4 #### [place] [address] [address] [facility] [place] [address] Amphetamines, Ur Negative Normal [facility] Comment on above: Performed By: #### E TOH4 #### [place] [address] [address] [place], [place] Barbiturates, Ur Negative Normal [facility] Comment on above: Performed By: #### E TOH4 #### [facility] [address] [place], [place] Oxycodone/Oxymorphine ,Ur Negative Normal [facility] Comment on above: Performed By: #### E TOH4 #### [place] [address] [address] [place], [place] Ethanol Serum/Plasmaon 10-20 Ethanol-Serum/Plasma 0.049 g/dL High 0.000-0.010 [facility] Comment on above: Result Comment: NOTE : This result is for medical treatment only. Analysis performed using non-forensic procedures. Performed By: #### E TOH4 #### [place] [address] [address] [place], [place] Hemogram w/ Autodiffon 10-20 Platelet mean volume (Bld) [Entitic vol] 9.2 fL Normal 7.4-10.4 [facility] Comment on above: Performed By: #### B MP3 #### [place] [address] [address] [place], [place] Platelets (Bld) [#/Vol] 121 10*3/uL Low 140-440 [facility] Comment on above: Performed By: #### B MP3 #### [place] [address] [address] [place], [place] Abs Baso Cnt 0.1 10*3/uL Normal 0.0-0.2 [facility] Comment on above: Performed By: #### B MP3 #### [place] [address] [address] [place], [place] Abs Neutrophile Cnt 6.8 10*3/uL Normal 1.8-7.0 [facility] Comment on above: Performed By: #### B MP3 #### [place] [address] [address] [place], [place] Basophils/100 WBC (Bld) 0.9 % Normal 0.0-2.0 [facility] Comment on above: Performed By: #### B MP3 #### [facility] [address] [place], [place] Eosinophils (Bld) [#/Vol] 0.0 10*3/uL Normal 0.0-0.5 [facility] Comment on above: Performed By: #### B MP3 #### [facility] [address] [place], [place] Eosinophils/100 WBC (Bld) 0.1 % Low 1.0-6.0 [facility] Comment on above: Performed By: #### B MP3 #### [facility] [address] [place], [place] Erythrocyte distribution width (RBC) [Ratio] 14.8 % High 11.5-14.5 [facility] Comment on above: Performed By: #### B MP3 #### [facility] [address] [place], [place] Granulocytes/100 WBC (Bld) 79.5 % Normal 40.0-80.0 [facility] Comment on above: Performed By: #### B MP3 #### [facility] [address] [place], [place] Hematocrit (Bld) [Volume fraction] 33.3 % Low 35.0-47.0 [facility] Comment on above: Performed By: #### B MP3 #### [facility] [address] [place], [place] Hemoglobin (Bld) [Mass/Vol] 11.6 g/dL Low 11.7-16.0 [facility] Comment on above: Performed By: #### B MP3 #### [facility] [address] [place], [place] Lymphocytes (Bld) [#/Vol] 1.0 10*3/uL Normal 1.0-4.3 [facility] Comment on above: Performed By: #### B MP3 #### [facility] [address] [place], [place] Lymphocytes/100 WBC (Bld) 12.2 % Low 20.0-40.0 [facility] Comment on above: Performed By: #### B MP3 #### [facility] [address] [place], [place] MCH (RBC) [Entitic mass] 34.4 pg High 26.0-34.0 [facility] Comment on above: Performed By: #### B MP3 #### [facility] [address] [place], [place] MCHC 34.9 % Normal 32.0-36.0 [facility] Comment on above: Performed By: #### B MP3 #### [facility] [address] [place], [place] MCV (RBC) [Entitic vol] 98.7 fL High 79.0-98.0 [facility] Comment on above: Performed By: #### B MP3 #### [facility] [address] [place], [place] Monocytes (Bld) [#/Vol] 0.6 10*3/uL Normal 0.0-0.8 [facility] Comment on above: Performed By: #### B MP3 #### [facility] [address] [place], [place] Monocytes/100 WBC (Bld) 7.3 % Normal 2.0-10.0 [facility] Comment on above: Performed By: #### B MP3 #### [facility] [address] [place], [place] RBC (Bld) [#/Vol] 3.38 10*6/uL Low 3.80-5.20 [facility] Comment on above: Performed By: #### B MP3 #### [facility] [address] [place], [place] WBC (Bld) [#/Vol] 8.5 10*3/uL Normal 3.6-10.7 [facility] Comment on above: Performed By: #### B MP3 #### [facility] [address] [place], [place] Hepatic Functionon 1 ALP [Catalytic activity/Vol] 45 U/L Normal 38-126 [facility] Comment on above: Performed By: #### B MP3 #### [facility] [address] [place], [place] ALT [Catalytic activity/Vol] 39 U/L High 0-34 [facility] Comment on above: Result Comment: The ALT test is performed by an updated assay method. Please note that the reference intervals have been changed and are now sex specific. Performed By: #### B MP3 #### [facility] [address] [place], [place] AST [Catalytic activity/Vol] 48 U/L High 15-46 [facility] Comment on above: Performed By: #### B MP3 #### [facility] [address] [place], [place] Bilirubin [Mass/Vol] 0.5 mg/dL Normal 0.2-1.3 [facility] Comment on above: Performed By: #### B MP3 #### [facility] [address] [place], [place] Bilirubin.indirect [Mass/Vol] 0.0 mg/dL Normal 0.0-0.3 [facility] Comment on above: Performed By: #### B MP3 #### [facility] [address] [place], [place] Protein [Mass/Vol] 5.5 g/dL Low 6.3-8.2 [facility] Comment on above: Performed By: #### B MP3 #### [facility] [address] [place], [place] Albumin [Mass/Vol] 3.0 g/dL Low 3.5-5.0 [facility] Comment on above: Performed By: #### B MP3 #### [facility] [address] [place], [place] Hepatic function panelon Albumin [Mass/Vol] 3.0 g/dL Low 3.5 - 5 g/dL [facility], [place] ALP [Catalytic activity/Vol] 45 U/L 38 - 126 U/L [facility], [place] ALT [Catalytic activity/Vol] 39 U/L High 0 - 34 U/L [place], [place] Comment on above: The ALT test is perf ormed by an updated assay method. Please note that the reference intervals have been changed and are now sex specific. AST [Catalytic activity/Vol] 48 U/L High 15 - 46 U/L [place] Bilirubin Ql (U) 0.5 mg/dL 0.2 - 1.3 mg/dL [place], [place] Bilirubin.direct [Mass/Vol] 0.0 mg/dL 0 - 0.3 mg/dL [place], [place] Protein [Mass/Vol] 5.5 g/dL Low 6.3 - 8.2 g/dL [place], [place] Magnesiumon 10-20-2020 Magnesium [Mass/Vol] 0.9 mg/dL Critically low 1.6-2.3 [facility] Comment on above: Performed By: #### B MP3 #### [address] [address] Interpretation and review of laboratory results Abnormal [place] Magnesium [Mass/Vol] 0.9 mg/dL Critically low 1.6 - 2.3 m g/dL [place] Test Performed by [address] Otheron 10-20-2020 Interpretation and review of laboratory results Abnormal [place] Test Performed by [address] Prothrombin Timeon INR 1.0 Normal 0.9-1.1 [facility] Comment on above: Result Comment: Daniel mmended [...] Infarction Performed By: #### B MP3 #### [address] [address] [place] [address] PT Coag (PPP) [Time] 10.4 s Normal 9.0-12.0 [facility] Comment on above: Result Comment: . Performed By: #### B MP3 #### [facility] [address] [place] [address] Urinalysison 10-20-2020 Appearance (U) Clear Clear NA [place], [place] Comment on above: . Bilirubin Urine Negative Negative mg/dL [place] Comment on above: . Color (U) Yellow Lt. Yellow NA [place], [place] Comment on above: . Glucose, Ur Normal Normal (<70) mg/dL [place] Comment on above: . Interpretation and review of laboratory results Abnormal [place] Ketones Ql (U) 40 mg/dL Abnormal Negative [place] Comment on above: . LEUKOCYTES, UA Negative Negative Jennifer/uL [place], [place] Comment on above: . Nitrite, Urine Negative Negative NA [place] Comment on above: . Occult Blood,Urine Negative Negative mg/dL [place] Comment on above: . pH (U) 8.0 [pH] [place], [place] Comment on above: . Protein (U) [Mass/Vol] 20 mg/dL Abnormal Negative [place] Comment on above: . Specific [place], Urine >1.030 Abnormal [place] Comment on above: . Urobilinogen, Urine 2 mg/dL Abnormal Normal (0-1) [place], [place] Comment on above: . Test Performed by [address] [address] [place], [place] Urine Drug Screenon 10-20-19 21 Amphetamines, urine Negative [place] Barbiturates, Ur Negative [place] Benzodiazepine Ur Qual Negative [place] Cocaine Metabolites, Ur Negative [place] Methadone, Urine Negative [place] Opiates, Urine Negative [place] Oxycodone Screen, Ur Negative [place], [place] PCP, Urine Negative [place] Comment on above: The expected value [...] confirmation under separate order. Test Performed by [facility] [address] [address] [place] XR ELBOW LEFT (2 VIEWS)on [place], [facility] Incoming Radiology Results From [facility] - 10/20/2020 1:56 PM EST Patient Name: JAZMIN JOHNSON Diagnostic Radiology ACCESSION EXAM DATE/TIME PROCEDURE ORDERING PROVIDER [id number] 10/20/2020 13:55 EST CR Elbow 2 Views Left MD TRINIDAD KEVIN CPT code 87338 Reason For Exam (CR Elbow 2 Views [...] J Transcribed Date and Time: 10/20/2020 1:32 [place], [place] Patient Name: JAZMIN JOHNSON Diagnostic Radiology ACCESSION EXAM DATE/TIME PROCEDURE ORDERING PROVIDER [id number] 10/20/2020 13:55 EST CR Elbow 2 Views Left MD TRINIDAD KEVIN CPT code 98377 Reason For Exam (CR Elbow 2 Views [...] J Transcribed Date and Time: 10/20/2020 1:32 [place] AMMONIAon 10-19-2020 Ammonia (P) [Mass/Vol] ug/dL 9 - 30 umol/L [place] [facility], [address] [place], [place] [id number] [place] [address] APTTon 10-19-2020 aPTT Coag (Bld) [Time] 22.9 s 20 - 30.5 s [place] Comment on above: NOTE: The therapeuti c time for Heparin anticoagulation, based on Xa activity inhibition, is an APTT of 46-80 seconds. Ammoniaon 10-19-2020 Ammonia (P) [Mass/Vol] ug/dL Normal 9-30 [facility] Comment on above: Performed By: #### B MP3, CK3, TROPN, LFT3, HEMDF, NH33, ETOH4 #### [facility] [address] [place] [address] Basic Metabolic Panelon 01-0 Anion Gap 9 Normal [facility] Comment on above: Performed By: #### B MP3, CK3, TROPN, LFT3, HEMDF, NH33, ETOH4 #### [facility] [address] [place] [address] CO2 [Moles/Vol] 30 mmol/L Normal 22-30 [facility] Comment on above: Performed By: #### B MP3, CK3, TROPN, LFT3, HEMDF, NH33, ETOH4 #### [facility] [address] [place] [address] Creatinine [Mass/Vol] 0.54 mg/dL Normal 0.52-1.25 [facility] Comment on above: Performed By: #### B MP3, CK3, TROPN, LFT3, HEMDF, NH33, ETOH4 #### [facility] [address] [place] [address] eGFR OTHER > 90.0 Normal >60 [facility] Comment on above: Result Comment: KDIG O [...] CK3, TROPN, LFT3, HEMDF, NH33, ETOH4 #### [facility] [address] [place] [address] GFR/1.73 sq M.predicted among blacks MDRD (S/P/Bld) [Vol rate/Area] mL/min/{1.73_m2} Normal >60 [facility] Comment on above: Performed By: #### B MP3, CK3, TROPN, LFT3, HEMDF, NH33, ETOH4 #### [facility] [address] [place] [address] Chloride [Moles/Vol] 99 mmol/L Normal 98-107 [facility] Comment on above: Performed By: #### B MP3, CK3, TROPN, LFT3, HEMDF, NH33, ETOH4 #### [facility] [address] [place] [address] Potassium [Moles/Vol] 3.6 mmol/L Normal 3.5-5.1 [facility] Comment on above: Performed By: #### B MP3, CK3, TROPN, LFT3, HEMDF, NH33, ETOH4 #### [facility] [address] [place] [address] Sodium [Moles/Vol] 139 mmol/L Normal 135-145 [facility] Comment on above: Performed By: #### B MP3, CK3, TROPN, LFT3, HEMDF, NH33, ETOH4 #### [facility] [address] [place] [address] Calcium [Mass/Vol] 9.2 mg/dL Normal 8.4-10.4 [place] Comment on above: Performed By: #### B MP3, CK3, TROPN, LFT3, HEMDF, NH33, ETOH4 #### [facility] [address] [place] [address] Glucose [Mass/Vol] 97 mg/dL Normal 70-100 [place], [place] Comment on above: Performed By: #### B MP3, CK3, TROPN, LFT3, HEMDF, NH33, ETOH4 #### [facility] [address] [place] [address] Urea nitrogen [Mass/Vol] 12 mg/dL Normal 7-20 [place] Comment on above: Performed By: #### B MP3, CK3, TROPN, LFT3, HEMDF, NH33, ETOH4 #### [facility] [address] [place] [address] Anion gap [Moles/Vol] 9 mmol/L [place], [place] Chloride [Moles/Vol] 99 mmol/L 98 - 107 mmol/L [place] CO2 [Moles/Vol] 30 mmol/L 22 - 30 mmol/L [place] Creatinine [Mass/Vol] 0.54 mg/dL 0.52 - 1.25 mg/dL [place] EGFR IF NonAfrican [place] >90.0 >60 mL/min [place] Comment on above: KDIGO guidelines pro [...] MDRD (S/P/Bld) [Vol rate/Area] mL/min/{1.73_m2} >60 mL/min [place] Potassium [Moles/Vol] 3.6 mmol/L 3.5 - 5.1 mmol/L [place] Sodium [Moles/Vol] 139 mmol/L 135 - 145 mmol/L [place] CKon 10-19-2020 CK [Catalytic activity/Vol] 90 U/L Normal 30-170 [facility] Comment on above: Performed By: #### B MP3, CK3, TROPN, LFT3, HEMDF, NH33, ETOH4 #### [facility] [address] [place] [address] Total CK 90 U/L 30 - 170 U/L [place] Abdomen Pelvis W Contrast on 10-19-2020 Patient Name: JAZMIN JOHNSON Computed Tomography ACCESSION EXAM DATE/TIME PROCEDURE ORDERING PROVIDER [id number] 10/19/2020 18:[address] Abdomen/Pelvis w/ IV JACK BHATTI Contrast (IV Onl CPT code 68145 Reason For Exam (CT Abdomen/Pelvis w/ IV [...] R Transcribed Date and Time: 10/19/2020 6:30 [facility], [place] Incoming Radiology Results From [facility] - 10/19/2020 6:30 PM EST Patient Name: JAZMIN JOHNSON Computed Tomography ACCESSION EXAM DATE/TIME PROCEDURE ORDERING PROVIDER [id number] 10/19/2020 18:[address] Abdomen/Pelvis w/ IV JACK BHATTI Contrast (IV Onl CPT code 90035 Reason For Exam (CT Abdomen/Pelvis w/ IV [...] R Transcribed Date and Time: 10/19/2020 6:30 [place] Abdomen/Pelvis w/ Contras ton 10-19-2020 CT Abdomen/Pelvis w/ Contrast [facility]: [id number] Tomography ACCESSION EXAM DATE/TIME PROCEDURE ORDERING PROVIDER [id number] 10/19/2020 18:[address] Abdomen/Pelvis w/ IV JACK BHATTI Contrast (IV Onl CPT code 68922 Reason For Exam (CT Abdomen/Pelvis w/ IV [...] Transcribed Date and Time: 10/19/2020 6:30 Normal [facility] CT CHEST W CONTRASTon 2020 Patient Name: JAZMIN JOHNSON Computed Tomography ACCESSION EXAM DATE/TIME PROCEDURE ORDERING PROVIDER [id number] 10/19/2020 18:[address] Thorax w/ Contrast JACK BHATTI CPT code 57230 Q9967 Reason For Exam (CT Thorax w/ [...] R Transcribed Date and Time: 10/19/2020 6:30 [place], [place] Willi Alonzo [facility] 10/[facility]2020 6:30 PM EST Patient Name: JAZMIN JOHNSON Computed Tomography ACCESSION EXAM DATE/TIME PROCEDURE ORDERING PROVIDER [id number] 10/19/2020 18:[address] Thorax w/ Contrast JACK BHATTI CPT code 69982 Q9967 Reason For Exam (CT Thorax w/ [...] R Transcribed Date and Time: 10/19/2020 6:30 [place] Cervical Spine WO Contras ton 10-19-2020 [place] Incoming Radiology Results From [facility] - 10/19/2020 6:21 PM EST Patient Name: JAZMIN JOHNSON Computed Tomography ACCESSION EXAM DATE/TIME PROCEDURE ORDERING PROVIDER [id number] 10/19/2020 18:[address] Spine Cervical w/o HAVERCHAK, ALEJANDRO Contrast CPT code 29535 Reason For Exam (CT Spine Cervical w/o [...] R Transcribed Date and Time: 10/19/2020 6:21 [place] Patient Name: JAZMIN JOHNSON Computed Tomography ACCESSION EXAM DATE/TIME PROCEDURE ORDERING PROVIDER [id number] 10/19/2020 18:[address] Spine Cervical w/o ALEJANDRO AGUILAR Contrast CPT code 58939 Reason For Exam (CT Spine Cervical w/o [...] R Transcribed Date and Time: 10/19/2020 6:21 [place] CT Chest w/ Contraston 10-19 CT Chest w/ Contrast Patient Name: JAZMIN JOHNSON Computed Tomography ACCESSION EXAM DATE/TIME PROCEDURE ORDERING PROVIDER [id number] 10/19/2020 18:[address] Thorax w/ Contrast JACK BHATTI CPT code 03491 Q9967 Reason For Exam (CT Thorax w/ [...] Transcribed Date and Time: 10/19/2020 6:30 Normal [facility] CT Facial Bones WO Contrasto n 10-19-2020 [place], [facility] Incoming Radiology Results From [facility] - 10/19/2020 6:25 PM EST Patient Name: JAZMIN JOHNSON Computed Tomography ACCESSION EXAM DATE/TIME PROCEDURE ORDERING PROVIDER [id number] 10/19/2020 18:[address] Maxillofacial w/o HAVERCHAK, ALEJANDRO Contrast CPT code 80247 Reason For Exam (CT Maxillofacial w/o Contrast) [...] R Transcribed Date and Time: 10/19/2020 6:25 [place] Patient Name: JAZMIN JOHNSON Computed Tomography ACCESSION EXAM DATE/TIME PROCEDURE ORDERING PROVIDER [id number] 10/19/2020 18:[address] Maxillofacial w/o HAVERCHAK, ALEJANDRO Contrast CPT code 02811 Reason For Exam (CT Maxillofacial w/o Contrast) [...] R Transcribed Date and Time: 10/19/2020 6:25 [place] CT Head WO Contraston 2020 [place] Incoming Radiology Results From [facility] - 10/19/2020 6:18 PM EST Patient Name: JAZMIN JOHNSON Computed Tomography ACCESSION EXAM DATE/TIME PROCEDURE ORDERING PROVIDER [id number] 10/19/2020 18:[address] Head or Brain w/o ALEJANDRO AGUILAR Contrast CPT code 02081 Reason For Exam (CT Head or Brain [...] R Transcribed Date and Time: 10/19/2020 6:18 [place] Patient Name: JAZMIN JOHNSON Computed Tomography ACCESSION EXAM DATE/TIME PROCEDURE ORDERING PROVIDER [id number] 10/19/2020 18:[address] Head or Brain w/o HAVERCHAK, ALEJANDRO Contrast CPT code 64622 Reason For Exam (CT Head or Brain [...] R Transcribed Date and Time: 10/19/2020 6:18 [place] Head or Brain w/o Contras ton 10-19-2020 CT Head or Brain w/o Contrast Patient Name: JAZMIN JOHNSON Computed Tomography ACCESSION EXAM DATE/TIME PROCEDURE ORDERING PROVIDER [id number] 10/19/2020 18:[address] Head or Brain w/o HAVEVINH ALEJANDRO Contrast CPT code 33162 Reason For Exam (CT Head or Brain [...] Transcribed Date and Time: 10/19/2020 6:18 Normal [facility] CT Maxillofacial w/o Contras ton 10-19-2020 CT Maxillofacial w/o Contrast Patient Name: JAZMIN JOHNSON Computed Tomography ACCESSION EXAM DATE/TIME PROCEDURE ORDERING PROVIDER [id number] 10/19/2020 18:[address] Maxillofacial w/o ALEJANDRO AGUILAR Contrast CPT code 96084 Reason For Exam (CT Maxillofacial w/o Contrast) [...] Transcribed Date and Time: 10/19/2020 6:25 Normal [facility] CT Spine Cervical w/o Contra lydia 10-19-2020 CT Spine Cervical w/o Contrast Patient Name: JAZMIN JOHNSON Computed Tomography ACCESSION EXAM DATE/TIME PROCEDURE ORDERING PROVIDER [id number] 10/19/2020 18:[address] Spine Cervical w/o ALEJANDRO AGUILAR Contrast CPT code 46494 Reason For Exam (CT Spine Cervical w/o [...] Transcribed Date and Time: 10/19/2020 6:21 Normal [facility] ED Provider Noteon ED Provider Note Emergency Department Encounter [facility] ED Patient: Jazmin Johnson : 1950 Date [...] 10/19/20 190 Jack Bhatti MD 10/19/20 1905 [facility]: [facility] : 1950 [...] otherwise acutely negative except as in the [place]. Past History Past Medical History: Diagnosis Date [...] on phone: None Gets together: None Attends synagogue service: None Active member of club or [...] mouth daily CHOLECALCIFEROL (VITAMIN D3) 50 MCG (1999) CAPS Take by mouth daily CYANOCOBALAMIN (VITAMIN [...] hemotympanum. Left Ear: No hemotympanum. Mouth/Throat: Lips: [place]. Mouth: Mucous membranes are dry. Pharynx: Oropharynx [...] sounds: Norm (more content not included)... Normal [facility] Ethanolon 10-19-2020 Ethanol Lvl 0.049 g/dL High 0 - 0.01 g/dL [place] Comment on above: NOTE: This result is for medical treatment only. Analysis performed using non-forensic procedures. Interpretation and review of laboratory results Abnormal [place], [place] Test Performed by [facility], [address] [place] [address] [place], [place] Ethanol Lvl 0.223 g/dL High 0 - 0.01 g/dL [place], [place] Comment on above: NOTE: This result is for medical treatment only. Analysis performed using non-forensic procedures. Ethanol Serum/Plasmaon 10-19 Ethanol-Serum/Plasma 0.223 g/dL High 0.000-0.010 [facility] Comment on above: Result Comment: NOTE : This result is for medical treatment only. Analysis performed using non-forensic procedures. Performed By: #### B MP3, CK3, TROPN, LFT3, HEMDF, NH33, ETOH4 #### [facility] [address] [place] [address] Hemogram (CBC) w/Auto Diffon 10-19-2020 Absolute Baso # 0.1 10*3/uL 0 - 0.2 10*3/uL [place], [place] Absolute Neut # 5.2 10*3/uL 1.8 - 7 10*3/uL [place], [place] Basophils/100 WBC (Bld) 1.1 % 0 - 2 % [place], [place] Eosinophils (Bld) [#/Vol] 0.0 10*3/uL 0 - 0.5 10*3/uL [place], [place] Eosinophils/100 WBC (Bld) 0.4 % Low 1 - 6 % [place] Erythrocyte distribution width (RBC) [Ratio] 15.1 % High 11.5 - 14.5 % [place], [place] Granulocytes/100 WBC (Bld) 75.3 % 40 - 80 % [place] Hematocrit (Bld) [Volume fraction] 41.7 % 35 - 47 % [place] Hemoglobin (Bld) [Mass/Vol] 13.9 g/dL 11.7 - 16 g/dL [place] Interpretation and review of laboratory results Abnormal [place] Lymphocytes (Bld) [#/Vol] 1.1 10*3/uL 1 - 4.3 10*3/uL [place], [place] Lymphocytes/100 WBC (Bld) 16.5 % Low 20 - 40 % [place] MCH (RBC) [Entitic mass] 33.3 pg 26 - 34 pg [place], [place] MCHC (RBC) [Mass/Vol] 33.4 % 32 - 36 % [place], [place] MCV (RBC) [Entitic vol] 99.6 fL High 79 - 98 fL [place], [place] Monocytes (Bld) [#/Vol] 0.5 10*3/uL 0 - 0.8 10*3/uL [place], [place] Monocytes/100 WBC (Bld) 6.7 % 2 - 10 % [place] Platelet mean volume (Bld) [Entitic vol] 8.7 fL 7.4 - 10.4 fL [place] Platelets (Bld) [#/Vol] 137 10*3/uL Low 140 - 440 10*3/uL [place] RBC (Bld) [#/Vol] 4.19 10*6/uL 3.8 - 5.2 10*6/uL [place] WBC (Bld) [#/Vol] 6.9 10*3/uL 3.6 - 10.7 10*3/uL [place] Test Performed by [facility], [address] [place] [address] [place], [place] Hemogram w/ Autodiffon 10-19 Abs Baso Cnt 0.1 10*3/uL Normal 0.0-0.2 [facility] Comment on above: Performed By: #### B MP3, CK3, TROPN, LFT3, HEMDF, NH33, ETOH4 #### [facility] [address] [place] [address] Abs Neutrophile Cnt 5.2 10*3/uL Normal 1.8-7.0 [facility] Comment on above: Performed By: #### B MP3, CK3, TROPN, LFT3, HEMDF, NH33, ETOH4 #### [facility] [address] [place] [address] Basophils/100 WBC (Bld) 1.1 % Normal 0.0-2.0 [facility] Comment on above: Performed By: #### B MP3, CK3, TROPN, LFT3, HEMDF, NH33, ETOH4 #### [facility] [address] [place] [address] Eosinophils (Bld) [#/Vol] 0.0 10*3/uL Normal 0.0-0.5 [facility] Comment on above: Performed By: #### B MP3, CK3, TROPN, LFT3, HEMDF, NH33, ETOH4 #### [facility] [address] [place] [address] Eosinophils/100 WBC (Bld) 0.4 % Low 1.0-6.0 [facility] Comment on above: Performed By: #### B MP3, CK3, TROPN, LFT3, HEMDF, NH33, ETOH4 #### [facility] [address] [place] [address] Erythrocyte distribution width (RBC) [Ratio] 15.1 % High 11.5-14.5 [facility] Comment on above: Performed By: #### B MP3, CK3, TROPN, LFT3, HEMDF, NH33, ETOH4 #### [facility] [address] [place] [address] Granulocytes/100 WBC (Bld) 75.3 % Normal 40.0-80.0 [facility] Comment on above: Performed By: #### B MP3, CK3, TROPN, LFT3, HEMDF, NH33, ETOH4 #### [facility] [address] [place] [address] Hematocrit (Bld) [Volume fraction] 41.7 % Normal 35.0-47.0 [facility] Comment on above: Performed By: #### B MP3, CK3, TROPN, LFT3, HEMDF, NH33, ETOH4 #### [facility] [address] [place] [address] Hemoglobin (Bld) [Mass/Vol] 13.9 g/dL Normal 11.7-16.0 [facility] Comment on above: Performed By: #### B MP3, CK3, TROPN, LFT3, HEMDF, NH33, ETOH4 #### [facility] [address] [place] [address] Lymphocytes (Bld) [#/Vol] 1.1 10*3/uL Normal 1.0-4.3 [facility] Comment on above: Performed By: #### B MP3, CK3, TROPN, LFT3, HEMDF, NH33, ETOH4 #### [facility] [address] [place] [address] Lymphocytes/100 WBC (Bld) 16.5 % Low 20.0-40.0 [facility] Comment on above: Performed By: #### B MP3, CK3, TROPN, LFT3, HEMDF, NH33, ETOH4 #### [facility] [address] [place] [address] MCH (RBC) [Entitic mass] 33.3 pg Normal 26.0-34.0 [facility] Comment on above: Performed By: #### B MP3, CK3, TROPN, LFT3, HEMDF, NH33, ETOH4 #### [facility] [address] [place] [address] MCHC 33.4 % Normal 32.0-36.0 [facility] Comment on above: Performed By: #### B MP3, CK3, TROPN, LFT3, HEMDF, NH33, ETOH4 #### [facility] [address] [place] [address] MCV (RBC) [Entitic vol] 99.6 fL High 79.0-98.0 [facility] Comment on above: Performed By: #### B MP3, CK3, TROPN, LFT3, HEMDF, NH33, ETOH4 #### [facility] [address] [place] [address] Monocytes (Bld) [#/Vol] 0.5 10*3/uL Normal 0.0-0.8 [facility] Comment on above: Performed By: #### B MP3, CK3, TROPN, LFT3, HEMDF, NH33, ETOH4 #### [facility] [address] [place] [address] Monocytes/100 WBC (Bld) 6.7 % Normal 2.0-10.0 [facility] Comment on above: Performed By: #### B MP3, CK3, TROPN, LFT3, HEMDF, NH33, ETOH4 #### [facility] [address] [place] [address] Platelet mean volume (Bld) [Entitic vol] 8.7 fL Normal 7.4-10.4 [facility] Comment on above: Performed By: #### B MP3, CK3, TROPN, LFT3, HEMDF, NH33, ETOH4 #### [facility] [address] [place] [address] Platelets (Bld) [#/Vol] 137 10*3/uL Low 140-440 [facility] Comment on above: Performed By: #### B MP3, CK3, TROPN, LFT3, HEMDF, NH33, ETOH4 #### [facility] [address] [place] [address] RBC (Bld) [#/Vol] 4.19 10*6/uL Normal 3.80-5.20 [facility] Comment on above: Performed By: #### B MP3, CK3, TROPN, LFT3, HEMDF, NH33, ETOH4 #### [facility] [address] [place] [address] WBC (Bld) [#/Vol] 6.9 10*3/uL Normal 3.6-10.7 [facility] Comment on above: Performed By: #### B MP3, CK3, TROPN, LFT3, HEMDF, NH33, ETOH4 #### [facility] [address] [place] [address] Hepatic Functionon 1 AST [Catalytic activity/Vol] 75 U/L High 15-46 [facility] Comment on above: Performed By: #### B MP3, CK3, TROPN, LFT3, HEMDF, NH33, ETOH4 #### [facility] [address] [place] [address] Bilirubin [Mass/Vol] 0.4 mg/dL Normal 0.2-1.3 [facility] Comment on above: Performed By: #### B MP3, CK3, TROPN, LFT3, HEMDF, NH33, ETOH4 #### [facility] [address] [place] [address] Bilirubin.indirect [Mass/Vol] 0.0 mg/dL Normal 0.0-0.3 [facility] Comment on above: Performed By: #### B MP3, CK3, TROPN, LFT3, HEMDF, NH33, ETOH4 #### [facility] [address] [place] [address] Protein [Mass/Vol] 6.5 g/dL Normal 6.3-8.2 [facility] Comment on above: Performed By: #### B MP3, CK3, TROPN, LFT3, HEMDF, NH33, ETOH4 #### [facility] [address] [place] [address] Albumin [Mass/Vol] 3.8 g/dL Normal 3.5-5.0 [facility] Comment on above: Performed By: #### B MP3, CK3, TROPN, LFT3, HEMDF, NH33, ETOH4 #### [facility] [address] [place] [address] ALP [Catalytic activity/Vol] 63 U/L Normal 38-126 [place] Comment on above: Performed By: #### B MP3, CK3, TROPN, LFT3, HEMDF, NH33, ETOH4 #### [facility] [address] [place] [address] ALT [Catalytic activity/Vol] 59 U/L High 0-34 [place] Comment on above: The ALT test [...] CK3, TROPN, LFT3, HEMDF, NH33, ETOH4 #### [facility] [address] [place] [address] Hepatic Function Panelon Albumin [Mass/Vol] 3.8 g/dL 3.5 - 5 g/dL [place], [place] AST [Catalytic activity/Vol] 75 U/L High 15 - 46 U/L [place] Bilirubin Ql (U) 0.4 mg/dL 0.2 - 1.3 mg/dL [place], [place] Bilirubin.direct [Mass/Vol] 0.0 mg/dL 0 - 0.3 mg/dL [place] Protein [Mass/Vol] 6.5 g/dL 6.3 - 8.2 g/dL [place], [place] Otheron 10-19-2020 Test Performed by [facility], [address] [place] [address] [place] Interpretation and review of laboratory results Abnormal [place] Test Performed by [facility], [address], [place], [place] [address] [place] Protime-INRon 10-19-2020 INR Coag (PPP) [Relative time] 1.0 {INR} [place] Comment on above: Recommended Anticoag ulant [...] [Time] 10.4 s 9 - 12 s [place], [place] Comment on above: . Troponin Ion 10-19-2020 Troponin I.cardiac [Mass/Vol] ng/mL Normal 0.000-0.034 [facility] Comment on above: Result Comment: . Performed By: #### B MP3, CK3, TROPN, LFT3, HEMDF, NH33, ETOH4 #### [facility] [address] [place] [address] Troponin x1on 10-19-2020 Troponin I.cardiac [Mass/Vol] ng/mL 0 - 0.034 ng/mL [place] Comment on above: . Test Performed by [facility], [address], [place], [place] [address] [place] Basic Metabolic PanelOrdered By: Jack Bhatti on 11-03-2019 Anion gap [Moles/Vol] 11 mmol/L [facility] Work Phone: [phone] Calcium [Mass/Vol] 9.1 mg/dL 8.4 - 10. 4 mg/dL [facility] Work Phone: [phone] Chloride [Moles/Vol] 108 mmol/L High 98 - 107 mmol/L [facility] Work Phone: [phone] CO2 [Moles/Vol] 26 mmol/L 22 - 30 mmol/L [facility] Work Phone: [phone] Creatinine [Mass/Vol] 0.52 mg/dL 0.52 - 1.25 mg/dL [facility] Work Phone: [phone] EGFR IF NonAfrican [place]olan >60.0 >60 mL/min [facility] Work Phone: [phone] Comment on above: Source- MDRD equatio n with creatinine calibration to IDMS(NKDEP) eGFR not recommended for drug dose adjustment GFR/1.73 sq M.predicted among blacks MDRD (S/P/Bld) [Vol rate/Area] mL/min/{1.73_m2} >60 mL/min [facility] Work Phone: [phone] Glucose [Mass/Vol] 90 mg/dL 70 - 100 mg/dL [facility] Work Phone: [phone] Interpretation and review of laboratory results Abnormal [facility] Work Phone: [phone] Potassium [Moles/Vol] 3.8 mmol/L 3.5 - 5.1 mmol/L [facility] Work Phone: [phone] Sodium [Moles/Vol] 145 mmol/L 135 - 145 mmol/L [facility] Work Phone: [phone] Urea nitrogen [Mass/Vol] 12 mg/dL 7 - 20 mg/dL [facility] Work Phone: [phone] CT Cervical Spine WO Contras tOrdered By: Jack Bhatti on 11-03-2019 Patient Name: JAZMIN JOHNSON ---CT--- Exam Date/Time 11/03/2019 16:16:[address] Spine Cervical w/o Contrast Ordering Physician JACK BHATTI Accession Number [id number] CPT4 Codes 24539 () Reason For Exam fall, neck pain [...] Time: 11/03/2019 4:39 pm Signed by: MD AMRINELLI WENDELL Transcribed Date and Time: 11/03/2019 4:33 [facility] Work Phone: [place] Incoming [facility] Results From [facility] - 11/03/2019 4:41 PM EST Patient Name: JAZMIN JOHNSON ---CT--- Exam Date/Time 11/03/2019 16:16:[address] Spine Cervical w/o Contrast Ordering Physician JACK BHATTI Accession Number [id number] CPT4 Codes 02636 () Reason For Exam fall, neck pain [...] Contrast Ordering Physician JACK BHATTI Accession Number [id number] CPT4 Codes 70362 () Reason For Exam fall, head injury, [...] Phone: [place] Results From [facility] - 11/03/2019 4:41 PM EST Patient Name: JAZMIN JOHNSON ---CT--- Exam Date/Time 11/03/2019 16:16:[address] Head or Brain w/o Contrast Ordering Physician JACK BHATTI Accession Number [id number] CPT4 Codes 81864 () Reason For Exam fall, head injury, [...] WENDELL Transcribed Date and Time: 11/03/2019 4:33 [facility] Work Phone: [phone] EthanolOrdered By: Jack roberson on 11-03-2019 Ethanol Lvl 0.372 g/dL Critically high 0 - 0.01 g/dL [facility] Work Phone: [phone] Comment on above: NOTE: This result is for medical treatment only. Analysis performed using non-forensic procedures. Interpretation and review of laboratory results Abnormal [facility] Work Phone: [phone] Hemogram (CBC) w/Auto DiffOr dered By: Jack Bhatti on 11-03-2019 Absolute Baso # 0.1 10*3/uL 0 - 0.2 10*3/uL [facility] Work Phone: [phone] Absolute Neut # 2.1 10*3/uL 1.8 - 7 10*3/uL [facility] Work Phone: [phone] Basophils/100 WBC (Bld) 1.4 % 0 - 2 % [facility] Work Phone: [phone] Eosinophils (Bld) [#/Vol] 0.0 10*3/uL 0 - 0.5 10*3/uL [facility] Work Phone: [phone] Eosinophils/100 WBC (Bld) 0.6 % Low 1 - 6 % [facility] Work Phone: [phone] Erythrocyte distribution width (RBC) [Ratio] 16.5 % High 11.5 - 14.5 % [facility] Work Phone: [phone] Granulocytes/100 WBC (Bld) 38.2 % Low 40 - 80 % [facility] Work Phone: [phone] Hematocrit (Bld) [Volume fraction] 41.0 % 35 - 47 % [facility] Work Phone: [phone] Hemoglobin (Bld) [Mass/Vol] 13.7 g/dL 11.7 - 16 g/dL [facility] Work Phone: [phone] Interpretation and review of laboratory results Abnormal [facility] Work Phone: [phone] Lymphocytes (Bld) [#/Vol] 2.7 10*3/uL 1 - 4.3 10*3/uL [facility] Work Phone: [phone] Lymphocytes/100 WBC (Bld) 50.5 % High 20 - 40 % [facility] Work Phone: MCH (RBC) [Entitic mass] 33.3 pg 26 - 34 pg [facility] Work Phone: MCHC 33.4 % 32 - 36 % [facility] Work Phone: [phone] MCV (RBC) [Entitic vol] 99.6 fL High 79 - 98 fL [facility] Work Phone: [phone] Monocytes (Bld) [#/Vol] 0.5 10*3/uL 0 - 0.8 10*3/uL [facility] Work Phone: Monocytes/100 WBC (Bld) 9.3 % 2 - 10 % [facility] Work Phone: Platelet mean volume (Bld) [Entitic vol] 8.3 fL 7.4 - 10.4 fL [facility] Work Phone: [phone]() Platelets (Bld) [#/Vol] 238 10*3/uL 140 - 440 10*3/uL [facility] Work Phone: RBC (Bld) [#/Vol] 4.11 10*6/uL 3.8 - 5.2 10*6/uL [facility] Work Phone: WBC (Bld) [#/Vol] 5.4 10*3/uL 3.6 - 10.7 10*3/uL [facility] Work Phone: Test Performed by [facility], [address] [place] [address] [facility] Work Phone: Hepatic Function PanelOrdere d By: Jack Bhatti on 11-03-2019 Albumin [Mass/Vol] 4.0 g/dL 3.5 - 5 g/dL [facility] Work Phone: ALP [Catalytic activity/Vol] 55 U/L 38 - 126 U/L [facility] Work Phone: ALT [Catalytic activity/Vol] 28 U/L 13 - 69 U/L [facility] Work Phone: [phone] AST [Catalytic activity/Vol] 39 U/L 15 - 46 U/L [facility] Work Phone: [phone] Bilirubin [Mass/Vol] 0.3 mg/dL 0.2 - 1.3 mg/dL [facility] Work Phone: [phone] Bilirubin.indirect [Mass/Vol] 0.0 mg/dL 0 - 0.3 mg/dL [facility] Work Phone: [phone] Protein [Mass/Vol] 7.0 g/dL 6.3 - 8.2 g/dL [facility] Work Phone: [phone] MagnesiumOrdered By: Jack pandya on 11-03-2019 Magnesium [Mass/Vol] 1.9 mg/dL 1.6 - 2.3 mg/dL [facility] Work Phone: [phone] Panel InformationOrdered By: Jack Bhatti on 11-03-2019 Test Performed by [facility] [place] [address] [facility] Work Phone: [phone] Test Performed by [facility], [facility] [place] [address] [facility] Work Phone: [phone] Troponin i5Vartduk By: Jack Bhatti on 11-03-2019 Troponin I.cardiac [Mass/Vol] ng/mL 0 - 0.034 ng/mL [facility] Work Phone: [phone] Comment on above: . Clinical Summary: HMSPatient IDon 05-14-2019 QCG [facility] [employer] Work Phone: Office Visit: New - 1st visi t with practice, Rm: 1on 05-14-2019 NEGATED: Highlighted rowTobacco smoking status NHIS current everyday smoker [facility] [employer] Work Phone: Glucose Meteron 09-04-2017 Glucose mass conc 73 mg/dL Normal 70-99 [facility] Comment on above: Result Comment: RN N OTIFIED Performed By: #### G LMET ####[facility] [place] [address] Glucose mass conc 83 mg/dL Normal 70-99 [facility] Comment on above: Result Comment: ANGY FARRIS Performed By: #### G LMET ####[place] [address] Vital Signs Date Time Vital Sign Value Performing Clinician Facility 12-27-2022 11:02-0400 SaO2% (BldA) [Mass fraction] 97 % [facility] Comment on above: Order Comment: Speci men Type: ARTERIAL BLOOD SPECIMENOrdering Facility: [facility] Address: [address] [place] [address] Performed By: #### A LLBG ####[facility]ORY[facility] [id number] [address] 12-26-2022 11:02-0400 SaO2% (BldA) [Mass fraction] 97 % [facility] Comment on above: Order Comment: Speci men Type: ARTERIAL BLOOD SPECIMENOrdering Facility: [facility] Address: [address] [place] [address] Performed By: #### A LLBG ####[facility]ORATORYCLIA [id number] [address] [facility] 12-18-2022 08:00-0500 Body temperature 99.8 [degF] Dr. Khai Palacios Work Phone: [facility] 12-18-2022 08:00-0500 Diastolic blood pressure 71 mm[Hg] Dr. Khai Palacios Work Phone: [facility] 12-18-2022 08:00-0500 Heart rate 99 /min Dr. Khai Palacios Work Phone: [facility] 12-18-2022 08:00-0500 Inhaled oxygen concentration 30 % Dr. Khai Palacios Work Phone: [facility] 12-18-2022 08:00-0500 Respiratory rate 18 /min Dr. Khai Palacios Work Phone: [facility] 12-18-2022 08:00-0500 SaO2% (BldA) [Mass fraction] 97 % Dr. Khai Palacios Work Phone: [facility] 12-18-2022 08:00-0500 Systolic blood pressure 144 mm[Hg] Dr. Khai Palacios Work Phone: [facility] 12-18-2022 03:57-0500 Body mass index (BMI) [Ratio] 28.5 kg/m2 Dr. Khai Palacios Work Phone: [facility] 12-18-2022 03:57-0500 Body weight 73.[address] Khai Palacios Work Phone: [facility] 12-17-2022 10:09-0500 Body height 160.[address] Khai Palacios Work Phone: [facility] 12-17-2022 07:00-0500 Inhaled oxygen flow rate 30 L/min Dr. Khai Palacios Work Phone: [facility] 12-16-2022 18:00-0500 Diastolic blood pressure 106 mm[Hg] [facility] 12-16-2022 18:00-0500 Heart rate 101 /min [facility] 12-16-2022 18:00-0500 Inhaled oxygen flow rate 2 L/min [facility] 12-16-2022 18:00-0500 Respiratory rate 22 /min [facility] 12-16-2022 18:00-0500 SaO2% (BldA) [Mass fraction] 98 % [facility] 12-16-2022 18:00-0500 Systolic blood pressure 169 mm[Hg] [facility] 12-16-2022 17:50-0500 Body temperature 97.8 [degF] [facility] 12-16-2022 15:45-0500 Body height 160.02 cm [facility] 12-16-2022 15:45-0500 Body mass index (BMI) [Ratio] 27.9 kg/m2 [facility] 12-16-2022 15:45-0500 Body weight 71.5 kg [facility] 09-14-2022 15:27-0500 Body temperature 97.2 [degF] [facility] 09-14-2022 15:27-0500 Diastolic blood pressure 87 mm[Hg] [facility] 09-14-2022 15:27-0500 Heart rate 89 /min [facility] 09-14-2022 15:27-0500 Respiratory rate 13 /min [facility] 09-14-2022 15:27-0500 SaO2% (BldA) [Mass fraction] 95 % [facility] 09-14-2022 15:27-0500 Systolic blood pressure 111 mm[Hg] [facility] 09-14-2022 13:48-0500 Body height 160.02 cm [facility] Work Phone: 09-14-2022 13:48-0500 Body mass index (BMI) [Ratio] 28.5 kg/m2 [facility] 09-14-2022 13:48-0500 Body weight 73.1 kg [facility] 04-27-2022 11:37-0400 Diastolic blood pressure 90 mm[Hg] Dr. Khai Palacios Work Phone: [facility] Work Phone: 04-27-2022 11:37-0400 Heart rate 98 /min Dr. Khai Palacios Work Phone: [facility] Work Phone: 04-27-2022 11:37-0400 Respiratory rate 18 /min Dr. Khai Palacios Work Phone: [facility] Work Phone: 04-27-2022 11:37-0400 SaO2% (BldA) [Mass fraction] 96 % Dr. Khai Palacios Work Phone: [facility] Work Phone: 04-27-2022 11:37-0400 Systolic blood pressure 145 mm[Hg] Dr. Khai Palacios Work Phone: [facility] Work Phone: 04-27-2022 09:38-0400 Body height 170.[address] Khai Palacios Work Phone: [facility] Work Phone: 04-27-2022 09:38-0400 Body mass index (BMI) [Ratio] 24.7 kg/m2 Dr. Khai Palacios Work Phone: [facility] Work Phone: 04-27-2022 09:38-0400 Body temperature 97.2 [degF] Dr. Khai Palacios Work Phone: [facility] Work Phone: 04-27-2022 09:38-0400 Body weight 71.[address] Khai Palacios Work Phone: [facility] Work Phone: 02-06-2022 14:49-0400 Body temperature 97.9 [degF] Dr. Khai Palacios Work Phone: [facility] Work Phone: 02-06-2022 14:49-0400 Diastolic blood pressure 82 mm[Hg] Dr. Khai Palacios Work Phone: [facility] Work Phone: 02-06-2022 14:49-0400 Heart rate 75 /min Dr. Khai Palacios Work Phone: [facility] Work Phone: 02-06-2022 14:49-0400 Respiratory rate 16 /min Dr. Khai Palacios Work Phone: [facility] Work Phone: 02-06-2022 14:49-0400 SaO2% (BldA) [Mass fraction] 97 % Dr. Khai Palacios Work Phone: [facility] Work Phone: 02-06-2022 14:49-0400 Systolic blood pressure 127 mm[Hg] Dr. Khai Palacios Work Phone: [facility] Work Phone: 02-05-2022 16:45-0400 Body height 162.[address] Khai Palacios Work Phone: [facility] Work Phone: 02-05-2022 16:45-0400 Body mass index (BMI) [Ratio] 23.5 kg/m2 Dr. Khai Palacios Work Phone: [facility] Work Phone: 02-05-2022 16:45-0400 Body weight 62.[address] Khai Palacios Work Phone: [facility] Work Phone: 03-17-2021 10:50-0400 Respiratory rate 16 /min Shin Bloom DO Work Phone: [facility] 03-17-2021 07:26-0400 Body temperature 97.59 [degF] Shin Bloom DO Work Phone: [facility] 03-17-2021 07:26-0400 Diastolic blood pressure 74 mm[Hg] Shin Bloom DO Work Phone: [facility] 03-17-2021 07:26-0400 Heart rate 90 /min Shin Bloom DO Work Phone: [facility] 03-17-2021 07:26-0400 SaO2% (BldA) [Mass fraction] 93 % Shin Bloom DO Work Phone: [facility] 03-17-2021 07:26-0400 Systolic blood pressure 108 mm[Hg] Shin Bloom DO Work Phone: [facility] 03-11-2021 02:25-0400 Body height 167.6 cm Shin Bloom DO Work Phone: [facility] 03-11-2021 02:25-0400 Body mass index (BMI) [Ratio] 20.98 kg/m2 Shin Bloom DO Work Phone: [facility] 03-11-2021 02:25-0400 Body weight 58.97 kg Shin Bloom DO Work Phone: [facility] 02-18-2021 11:03-0400 Body temperature 98.2 [degF] Arpit Buchanan MD Work Phone: [facility] Work Phone: 02-18-2021 11:03-0400 Diastolic blood pressure 92 mm[Hg] Arpit Buchanan MD Work Phone: [facility] Work Phone: 02-18-2021 11:03-0400 Heart rate 103 /min Arpit Buchanan MD Work Phone: [facility] Work Phone: 02-18-2021 11:03-0400 Respiratory rate 18 /min Arpit Buchanan MD Work Phone: [facility] Work Phone: 02-18-2021 11:03-0400 SaO2% (BldA) [Mass fraction] 96 % Arpit Buchanan MD Work Phone: [facility] Work Phone: 02-18-2021 11:03-0400 Systolic blood pressure 142 mm[Hg] Arpit Buchanan MD Work Phone: [facility] Work Phone: 02-15-2021 11:36-0400 Body height 152.4 cm Arpit Buchanan MD Work Phone: [facility] Work Phone: 02-15-2021 11:36-0400 Body mass index (BMI) [Ratio] 24.41 kg/m2 Arpit Buchanan MD Work Phone: [facility] Work Phone: 02-15-2021 11:36-0400 Body weight 56.7 kg Arpit Buchanan MD Work Phone: [facility] Work Phone: 01-15-2021 08:30-0400 Body Temperature 96.1 [degF] [facility] Work Phone: 01-15-2021 08:30-0400 BP Diastolic 85 mm[Hg] [facility] Work Phone: 01-15-2021 08:30-0400 BP Systolic 132 mm[Hg] [facility] Work Phone: 01-15-2021 08:30-0400 Pulse Oximetry 97 % [facility] Work Phone: 01-15-2021 08:30-0400 Respiratory Rate 16 /min [facility] Work Phone: 01-14-2021 20:45-0400 Pulse (Heart Rate) 99 /min [facility] Work Phone: 01-14-2021 04:00-0400 BMI (Body Mass Index) 22.78 kg/m2 [facility] Work Phone: 01-14-2021 04:00-0400 Body weight 60.2 kg [facility] Work Phone: 01-13-2021 21:00-0400 Height 162.6 cm [facility] Work Phone: 12-29-2020 07:39-0400 BP Diastolic 58 mm[Hg] Dario Tilley [employer] Work Phone: 12-29-2020 07:39-0400 BP Systolic 113 mm[Hg] Dario Tilley [employer] Work Phone: 12-29-2020 07:39-0400 Pulse (Heart Rate) 118 /min Dario Tilley [employer] Work Phone: 12-29-2020 07:31-0400 Body Temperature 98.2 [degF] Dario Tilley [employer] Work Phone: 12-29-2020 07:31-0400 Pulse Oximetry 96 % Dario Tilley [employer] Work Phone: 12-29-2020 07:31-0400 Respiratory Rate 18 /min Dario MÁRQUEZ Work Phone: 12-12-2020 12:38-0500 BMI (Body Mass Index) 21.97 kg/m2 Dario MÁRQEUZ Work Phone: 12-12-2020 12:38-0500 Body weight 58.06 kg Dario MÁRQUEZ Work Phone: 12-12-2020 12:38-0500 Height 162.6 cm Dario MÁRQUEZ Work Phone: 10-24-2020 11:53-0500 Body Temperature 98.01 [degF] Jack Kayowski kSARIA [facility] [place] 10-24-2020 11:53-0500 BP Diastolic 79 mm[Hg] [facility] [place] 10-24-2020 11:53-0500 BP Systolic 121 mm[Hg] [facility] [place] 10-24-2020 11:53-0500 Pulse (Heart Rate) 93 /min [facility] [place] 10-24-2020 11:53-0500 Pulse Oximetry 95 % Jack [employer] [facility] [place] 10-24-2020 11:53-0500 Respiratory Rate 16 /min Jack [employer] [facility] [place] 10-21-2020 06:00-0500 BMI (Body Mass Index) 22.23 kg/m2 Jack Bhatti kSARIA [facility] 10-21-2020 06:00-0500 Body weight 58.74 kg [facility] [place] 10-20-2020 09:20-0500 Height 162.6 cm [facility] [place] 06-08-2020 16:17-0400 Body weight 59.88 kg Silvana Somers [facility] 06-08-2020 16:17-0400 Height 162.6 cm Silvana Somers [facility] 11-03-2019 15:22-0500 Body height 160 cm Jack Bhatti MD Work Phone: [facility] Work Phone: 11-03-2019 15:22-0500 Body mass index (BMI) [Ratio] 21.26 kg/m2 Jack Bhatti MD Work Phone: [facility] Work Phone: 11-03-2019 15:22-0500 Body temperature 98.4 [degF] Jack Bhatti MD Work Phone: [facility] Work Phone: 11-03-2019 15:22-0500 Body weight 54.43 kg Jack Bhatti MD Work Phone: [facility] Work Phone: 11-03-2019 15:22-0500 Diastolic blood pressure 80 mm[Hg] Jack Bhatti MD Work Phone: [facility] Work Phone: 11-03-2019 15:22-0500 Heart rate 112 /min Jack Bhatti MD Work Phone: [facility] Work Phone: 11-03-2019 15:22-0500 Respiratory rate 18 /min Jack Bhatti MD Work Phone: [facility] Work Phone: 11-03-2019 15:22-0500 SaO2% (BldA) [Mass fraction] 97 % Jack Bhatti MD Work Phone: [facility] Work Phone: 11-03-2019 15:22-0500 Systolic blood pressure 136 mm[Hg] Jack Bhatti MD Work Phone: [facility] Work Phone: NEGATED: Highlighted [id number] 14:00-0400 BMI (Body Mass Index) 24.85 kg/m2 Vanesa Maribel ORNAMENTAL METAL WORKER APPRENTICE [facility] Work Phone: NEGATED: Highlighted [id number] 14:00-0400 Body weight 64.41 kg Vanesa Maribel ORNAMENTAL METAL WORKER APPRENTICE [facility] Work Phone: NEGATED: Highlighted [id number] 14:00-0400 Body weight 65 kg Vanesa Maribel ORNAMENTAL METAL WORKER APPRENTICE [facility] Work Phone: NEGATED: Highlighted [id number] 14:00-0400 BP Diastolic 74 mm[Hg] Vanesa Maribel ORNAMENTAL METAL WORKER APPRENTICE [facility] Work Phone: NEGATED: Highlighted [id number] 14:00-0400 BP Systolic 123 mm[Hg] Vanesa Maribel ORNAMENTAL METAL WORKER APPRENTICE [facility] Work Phone: NEGATED: Highlighted [id number] 14:00-0400 Heart rate 2+ Vanesa Maribel ORNAMENTAL METAL WORKER APPRENTICE [facility] Work Phone: NEGATED: Highlighted [id number] 14:00-0400 Heart rate Vanesa Maribel ORNAMENTAL METAL WORKER APPRENTICE [facility] Work Phone: NEGATED: Highlighted [id number] 14:00-0400 Height 161.29 cm Vanesa Maribel ORNAMENTAL METAL WORKER APPRENTICE [facility] Work Phone: NEGATED: Highlighted [id number] 14:00-0400 Height 161 cm Vanesa Maribel ORNAMENTAL METAL WORKER APPRENTICE [facility] Work Phone: NEGATED: Highlighted [id number] 14:00-0400 Pulse (Heart Rate) 116 /min Vanesa Maribel ORNAMENTAL METAL WORKER APPRENTICE [facility] Work Phone: Encounters Encounter Date Encounter Type Care Provider Facility Start: 03-22-2025 ambulatory [facility] Facility:[facility] Start: 12-01-2024 ambulatory [facility] Facility:[facility] Start: 08-02-2023 End: 08-02-2023 AMB External Visit KENZIE FERRER MD [facility] Start: 05-03-2023 End: 05-03-2023 ambulatory [facility] Work Phone: Start: 05-03-2023 End: 05-03-[address] [facility] Start: 03-18-2023 End: 03-18-[address] [facility] Start: 02-25-2023 End: 02-25-[address] [facility] Start: 02-14-2023 End: 02-14-[address] Khai Palacios Work Phone: [facility] Work Phone: Start: 02-14-2023 End: 02-14-[address] Khai Palacios Work Phone: [facility] Start: 01-23-[address] Khai palacios Work Phone: [facility] Start: 01-16-[address] Khai palacios Work Phone: [facility] Start: 01-10-[address] Khai palacios Work Phone: [facility] Start: 12-18-2022 Non-patient / Non-visit Dr. Khai Palacios Work Phone: [facility] Start: 12-18-2022 ambulatory Germaine RESENDEZ RN.YARN BLEACHING MACHINE OPERATOR Work Phone: Critical Care Start: 12-18-2022 End: 01-09-2023 Evaluation and management of inpatient DHIMANT ROGELIO Facility:[facility] Start: 12-17-2022 Non-patient / Non-visit Dr. Khai Palacios Work Phone: [facility] Start: 12-17-2022 Non-patient / Non-visit Dr. Khai Palacios Work Phone: [facility] Start: 12-17-2022 Non-patient / Non-visit Dr. Khai Palacios Work Phone: [facility] Start: 12-16-2022 End: 12-16-2022 Non-patient / Non-visit Dr. Khai Palacios Work Phone: [facility] Start: 12-16-2022 End: 12-18-2022 Evaluation and management of inpatient [facility]-Intensive Care Unit Start: 12-16-2022 Non-patient / Non-visit Dr. Khai Palacios Work Phone: [facility] Start: 12-12-2022 End: 12-12-[address] Khai Palacios Work Phone: [facility] Work Phone: Start: 12-12-2022 End: 12-12-2022 Patient encounter procedure [facility]-Laboratory, Phy Office 3rd Flr Start: 09-19-2022 Telephone encounter Jw fleming MD Work Phone: Neurology Comment on above: Appointment Start: 09-14-2022 End: 09-27-2022 Evaluation and management of inpatient ALI MALLAT Facility:[facility] Start: 09-14-2022 End: 09-14-2022 Emergency department patient visit [facility]Emergency Department Start: 04-27-2022 End: 04-27-2022 Emergency department patient visit Dr. Khai Palacios Work Phone: [facility]Emergency Department Start: 02-06-2022 Non-patient / Non-visit Dr. Khai Palacios Work Phone: [facility] Start: 02-05-2022 End: 02-06-2022 Evaluation and management of inpatient Dr. Khai Palacios Work Phone: [facility]-Medical Surgical 3 Start: 03-11-2021 End: 03-17-2021 ambulatory [facility] Start: 03-11-2021 End: 03-17-2021 Emergency department patient visit Shin Bloom DO Work Phone: [facility] Surgical Unit 3 Start: 02-15-2021 End: 02-18-2021 Emergency department patient visit Arpit Buchanan MD Work Phone: [facility]E TELEMETRY Comment on above: Altered mental statu s, unspecified altered mental status type (Primary Dx) Start: 01-27-2021 End: 01-28-2021 ambulatory UNKNOWN PROVIDER Facility:[facility] Start: 01-23-2021 End: 01-30-2021 Evaluation and management of inpatient VON VILLA Facility:[facility] Start: 01-13-2021 End: 01-15-2021 Evaluation and management of inpatient FRANK PALACIOS [facility] Start: 01-13-2021 End: 01-15-2021 Evaluation and management of inpatient Major Ricketts Work Phone: [facility] 2C Ortho/Med Surg Comment on above: Bilateral subdural h ematomas (HCC) (Primary Dx); Acute alcoholic intoxication with complication (HCC); Laceration of forehead, initial encounter Start: 12-12-2020 End: 12-29-2020 Evaluation and management of inpatient Dario Tilley Work Phone: [facility]LEMET[facility] Comment on above: Altered mental statu s, unspecified altered mental status type (Primary Dx); Brain mass; Hyponatremia Start: 10-19-2020 End: 10-24-2020 Evaluation and management of inpatient Jack Duong Bhatti Work Phone: [facility] TELEMETRY Comment on above: Intracranial bleed ( HCC) (Primary Dx); Closed head injury, initial encounter; Acute alcoholic intoxication without complication (HCC) Start: 06-08-2020 End: 06-08-2020 Patient encounter procedure Silvana Somers Work Phone: [facility] Comment on above: Gynecologic exam nor mal (Primary Dx); Cervical cancer screening; Breast screening; Screening for osteoporosis; Menopause; Vulvar lesion; Fecal occult blood test positive; Cystocele, midline Start: 06-08-2020 End: 06-08-2020 Letter encounter Silvana Somers Work Phone: [facility] Start: 11-03-2019 End: 11-03-2019 Emergency department patient visit Jack Bhatti MD Work Phone: [facility] Emergency Dept Comment on above: Acute alcoholic into xication without complication (HCC) (Primary Dx); Injury of head, initial encounter; Alcohol abuse Start: 05-14-2019 End: 05-15-2019 Patient encounter procedure Joe Song PA-C Work Phone: [facility] Work Phone: Start: 11-18-2017 [facility] Start: 09-04-2017 End: 09-04-2017 Emergency department patient visit JACK NATHAN Facility:[facility] Procedures Date Procedure Procedure Detail Performing Clinician Start: 02-25-2023 Urine culture Start: 12-20-2022 Echocardiography LINNEA MERCADO Start: 12-18-2022 Antibody screen JENNYFER MERCADO Comment on above: Order Comment: Speci men Type: BLOOD SPECIMENOrdering Facility: [facility] Address: [address] [place] [address] Performed By: #### T SCR, DAGT ####[facility] BLOOD BANKCLIA [id number] [address] [facility] Start: 12-17-2022 CT of head without contrast [...] Comment: Speci men Type: BLOOD SPECIMENOrdering Facility: [facility] Address: [address] [place] [address] Performed By: #### T SCR ####[facility] BLOOD BANKIA [id number] [place] [address] [place] [facility] Start: 09-14-2022 CT cervical spine wi thout [...] ast 12 lds trcg only w/o i&r Norahstephanie Basurto DO Work Phone: Start: 03-11-2021 SARS-CoV-2 (COVID-19 ) RNA [Presence] in Respiratory specimen by CY with probe detection Shin Bloom DO Work Phone: Start: 03-11-2021 Drug tst prsmv instr mnt chem analyzers pr date Beatriz LEI-C Work Phone: Start: 03-11-2021 Urnls dip stick/tabl et reagent auto microscopy Beatriz LEI-C Work Phone: Start: 03-11-2021 Acetaminophen blood measurement Beatriz LEI-C Work Phone: Start: 03-11-2021 Basic metabolic pane l calcium total Beatriz LEI-C Work Phone: Start: 03-11-2021 Blood ethanol measurement Beatriz Sales PA-C Work Phone: Start: 03-11-2021 VIVAS TOP Shin Mayorga don Bloom DO Work Phone: Start: 03-11-2021 LIGHT BLUE TOP Shin Hall Wolf DO Work Phone: Start: 03-11-2021 LIGHT GREEN TOP Shin Hall Wolf DO Work Phone: Start: 03-11-2021 [facility] DRUG SCREEN, BLOOD Sheila Freedman DO Work Phone: Start: 03-11-2021 PINK TOP Shin Mayorga don Bloom DO Work Phone: Start: 03-11-2021 RAINBOW DRAW Shin Mayorga don Bloom DO Work Phone: Start: 03-11-2021 Salicylate blood [...] Basic metabolic pane l calcium total Patti Lynn Start: 01-14-2021 Blood count complete auto&auto difrntl wbc Patti Lynn Start: 01-14-2021 Speech and language therapy regime Patti Lynn Start: 01-14-2021 CT LUMBAR SPINE TRAU MA RECONSTRUCTION Ptati Lynn Start: 01-14-2021 CT THORACIC SPINE TR AUMA RECONSTRUCTION Patti Lynn Start: 01-14-2021 Ct thorax w/contrast material Patti Lynn Start: 01-13-2021 COVID-19, RAPID Major Ricketts Work [...] Work Phone: Start: 01-13-2021 Hepatic function panel aMjor Ricketts Work Phone: Start: 01-13-2021 Prothrombin time Major Ricketts Work Phone: Start: 01-13-2021 Thromboplastin time partial plasma/whole blood Major Ricketts Work Phone: Start: 01-13-2021 Ct head/brain w/o contrast material Major Ricketts Work Phone: Start: 12-29-2020 Basic metabolic pane l calcium total Rah Johnathan Work Phone: Start: 12-28-2020 Basic metabolic pane l calcium total Rah Johnathan Work Phone: Start: 12-26-2020 COVID-19 Frankie A La zo Work Phone: Start: 12-25-2020 Basic metabolic pane l calcium total Emeterio Concepción Work Phone: Start: 12-24-2020 Basic metabolic pane l calcium total Leland Deng Work Phone: Start: 12-20-2020 COVID-19 Leland patel Work Phone: Start: 12-19-2020 Sodium serum plasma or whole blood Endy Mauricio Work Phone: Start: 12-18-2020 Basic metabolic pane l calcium total Rah Johnathan Work Phone: Start: 12-17-2020 Basic metabolic pane l calcium total Endy Mauricio Work Phone: Start: 12-16-2020 Assay of magnesium Maxine Mauricio Work Phone: Start: 12-16-2020 Assay of [...] 12-14-2020 Assay of folic acid serum Endy Mauricio Work Phone: Start: 12-14-2020 Assay of magnesium Maxine Mauricio Work Phone: Start: 12-14-2020 Blood count complete auto&auto difrntl wbc Endy Mauricio Work Phone: Start: 12-14-2020 Comprehensive metabo lic panel Endy Hang Work Phone: Start: 12-13-2020 Mri brain brain stem w/o contrast material Robert Sevilla Work Phone: Start: 12-13-2020 Radiologic exam abdo men 1 view Inderpartap S Phangureh Work Phone: Start: 12-13-2020 Blood count complete auto&auto difrntl wbc Robert Sevilla Work Phone: Start: 12-12-2020 Drug screen class list a Dario Tilley Work Phone: Start: 12-12-2020 Urnls dip stick/tabl et rgnt auto w/o microscopy Jack Nidia Yudelka Work Phone: Start: 12-12-2020 Ct head/brain w/o contrast material Jack Nidia Yudelka Work Phone: Start: 12-12-2020 Radiologic exam ches t single view Jack Nidia Yudelka Work Phone: Start: 12-12-2020 Assay of ammonia Jack Nidia Hirarobsonrory Work Phone: Start: 12-12-2020 COVID-19 Jack Jacob Sharri parker Work Phone: Start: 12-12-2020 ADD ON LAB TEST Dario Tilley Work Phone: Start: 12-12-2020 Ecg routine ecg w/le ast 12 lds w/i&r Jack Machuca Work Phone: Start: 12-12-2020 Assay of ethanol Dario Tilley Work Phone: Start: 12-12-2020 Assay of free thyroxine Dario Tilley Work Phone: Start: 12-12-2020 Assay of magnesium Aust in Markus Tilley Work Phone: Start: 12-12-2020 Assay of [...] Basic metabolic pane l calcium total Germaine Woods Work Phone: Start: 10-23-2020 Basic metabolic pane l calcium total Germaine Woods Work Phone: Start: 10-22-2020 Assay of magnesium Jord janet Rosenberg Work Phone: Start: 10-22-2020 Basic metabolic pane l calcium total Galdino Rosenberg Work Phone: Start: 10-21-2020 Assay of magnesium Jord janet Rosenberg Work Phone: Start: 10-21-2020 Basic metabolic pane l calcium total Galdino Rosenberg Work Phone: Start: 10-21-2020 Blood count complete auto&auto difrntl wbc Jose Alberto Moraesip Work Phone: Start: 10-21-2020 Ct head/brain w/o contrast material Jaja Albert Work Phone: Start: 10-20-2020 Radex elbow 2 views Trace in R Trinidad Work Phone: Start: 10-20-2020 Ct angiography head w/contrast/noncontrast Jaja Albert Work Phone: Start: 10-20-2020 Ct head/brain w/o contrast material Jose Alberto Moraesip Work Phone: Start: 10-20-2020 Drug screen class list a Alejandro Aguilar Work Phone: Start: 10-20-2020 Urnls dip stick/tabl et rgnt auto w/o microscopy Alejandro Havenavaconstantin Work Phone: Start: 10-20-2020 Assay of magnesium [...] 10-19-2020 Ct head/brain w/o contrast material Alejandro Jeff Work Phone: Start: 10-19-2020 CT Abdomen and Pelvi s W contrast IV Jack Bhatti Work Phone: Start: 10-19-2020 Ct cervical spine w/ o contrast material Alejandro Jeff Work Phone: Start: 10-19-2020 Ct maxillofacial w/o contrast material Alejandro Jeff Work Phone: Start: 10-19-2020 Ct thorax w/contrast material Jack Duong Bhatti Work Phone: Start: 10-19-2020 Assay of ammonia Cynthian dra Aguilar Work Phone: Start: 10-19-2020 Assay of ethanol Cynthian dra Aguilar Work Phone: Start: 10-19-2020 Assay of troponin quantitative Alejandro Aguilar Work Phone: Start: 10-19-2020 Basic metabolic pane [...] End: 05-15-2019 Documentation of current medications Joe LEI-Tarsha Work Phone: Start: 05-14-2019 End: 05-15-2019 Pain assessment documented as positive - no follow-up/reason not given Joe Ernstthiphil LEI-C Work Phone: Start: 05-14-2019 End: 05-14-2019 POST-OP SHOE SQR TOE (BREG) Joe Song PA-C Work Phone: Start: 05-14-2019 End: 05-15-2019 Pt tobacco screen rcvd tlk Joe Song PA-C Work Phone: Start: 05-14-2019 End: 05-14-2019 Radex foot complete minimum 3 views Joe Jacob Nohemi DO-Tarsha Work Phone: Start: 05-14-2019 End: 05-14-2019 Radiologic examination ankle 2 views Joe Laphil DO-Tarsha Work Phone: Bacteria identified in Blood by Culture Dr. Khai Palacios Work Phone: Investigation of transfusion reaction Dr. Khai Palacios Work Phone: Respiratory microbia l culture Dr. Khai Palaciso Work Phone: Urine culture Dr. Khai Palacios Work Phone: NEGATED: Highlighted rowStart: 05-14-2019 End: 05-14-2019 Documentation of current medications Vanesa López LPN NEGATED: Highlighted rowStart: 05-14-2019 End: 05-14-2019 Smoking cessation education Vanesa López LPN Plan of Treatment Date Care Activity Detail Author Start: 12-18-2025 DIABETES SCREEN DIABETES SCREEN [facility] Start: 09-26-2025 DIABETES SCREEN DIABETES SCREEN [facility] Start: 12-22-2022 [facility] Start: 12-21-2022 [facility] Start: 12-20-2022 [facility] Start: 12-19-2022 [facility] Start: 12-18-2022 Patient discharge [facility] Start: 12-17-2022 Procedure [facility] Start: 12-17-2022 Consultation [facility] Start: 12-17-2022 Consultation [facility] Start: 12-16-2022 [facility] Start: 12-16-2022 Referral to service [facility] Start: 12-16-2022 Airway suction technique [facility] Start: 12-16-2022 Following clinical pathway protocol [facility] Start: 12-16-2022 Application of intermittent pneumatic compression device [facility] Start: 12-16-2022 Assessment of risk of venous thromboembolism [facility] Start: 12-16-2022 Care regimes management [facility] Start: 12-16-2022 Consultation for treatment [facility] Start: 12-16-2022 Continuous pulse oximetry [facility] Start: 12-16-2022 Documentation procedure [facility] Start: 12-16-2022 Insertion of catheter into peripheral vein [facility] Start: 12-16-2022 Measuring intake and output [facility] Start: 12-16-2022 Oxygen therapy [facility] Start: 12-16-2022 Patient referral to dietitian [facility] Start: 12-16-2022 Providing care according to standard [facility] Start: 12-16-2022 Referral to occupational therapist [facility] Start: 12-16-2022 Referral to service [facility] Start: 12-16-2022 Removal of urinary catheter [facility] Start: 12-16-2022 Tobacco use cessation education [facility] Start: 12-16-2022 Vital signs measurements [facility] Start: 12-16-2022 [facility] Start: 12-16-2022 Creatine kinase [Enzymatic activity/volume] in Serum or Plasma [facility] Start: 12-16-2022 Triglycerides measurement [facility] Start: 12-16-2022 Electrocardiographic procedure [facility] Start: 12-16-2022 Electroencephalogram [facility] Start: 12-16-2022 Plain chest X-ray Chest 1 View (Portable) [facility] Start: 12-16-2022 XR Chest Single view [facility] Start: 12-16-2022 Verification routine [facility] Start: 12-16-2022 Admission procedure [facility] Start: 12-16-2022 End: 12-16-2022 Blood culture [facility] Start: 12-16-2022 End: 12-16-2022 [facility] Start: 12-16-2022 Inhalation therapy procedure [facility] Start: 12-16-2022 Patient referral to dietitian [facility] Start: 12-16-2022 [facility] Start: 10-14-2022 ADVANCE DIRECTIVE DISCUSSION ADVANCE DIRECTIVE DISCUSSION [facility] Start: 10-14-2022 DEPRESSION ASSESSMENT DEPRESSION ASSESSMENT [facility] Start: 09-14-2022 Simple repair f/e/e/n/l/m 2.5cm/< RPR F/E/E/N/L/M 2.5 CM/< [facility] Start: 06-14-2022 Influenza vaccination INFLUENZA (#1) [facility] Start: 02-06-2022 Patient discharge [facility] Work Phone: Start: 02-05-2022 Aspiration precautions [facility] Work Phone: Start: 02-05-2022 Assessment of risk of venous thromboembolism [facility] Work Phone: Start: 02-05-2022 Fall prevention [facility] Work Phone: Start: 02-05-2022 Inhalation therapy procedure [facility] Work Phone: Start: 02-05-2022 Introduction of urinary catheter [facility] Work Phone: Start: 02-05-2022 Notification of physician [facility] Work Phone: Start: 02-05-2022 Oxygen therapy [facility] Work Phone: Start: 02-05-2022 Referral to service [facility] Work Phone: Start: 02-05-2022 Vital signs measurements [facility] Work Phone: Start: 02-05-2022 [facility] Work Phone: Start: 02-05-2022 Following clinical pathway protocol [facility] Work Phone: Start: 02-05-2022 Admission procedure [facility] Work Phone: Start: 06-14-2021 Influenza vaccination [facility] Work Phone: Start: 06-08-2021 Colonoscopy COLONOSCOPY [facility] Start: 06-08-2021 COLORECTAL CANCER SCREENING COLORECTAL CANCER SCREENING [facility] Start: 06-08-2021 Tuberculosis screening COLORECTAL CANCER SCREENING,SEE MODIFIER [facility] Start: 02-27-2021 End: 02-27-2021 Patient encounter procedure 02/27/2021 Office Visit Neurosurgery Kush Al MD [address] [place] [id number] [facility] Start: 01-28-2021 End: 01-14-2022 CT HEAD WO CONTRAST CT HEAD WO CONTRAST Imaging Routine Bilateral subdural hematomas (HCC) Expected: 01/28/2021, Expires: 01/14/2022 [facility] Work Phone: Comment on above: Expected: 01/28/2021, Expires: 2 Start: 11-13-2020 End: 10-23-2021 CT Head WO Contrast CT Head WO Contrast Imaging Routine Intracranial bleed (HCC) Expected: 11/13/2020, Expires: 10[facility]23/2021 [facility] Comment on above: Expected: 11/13/2020, Expires: 2 Start: 06-14-2020 Influenza vaccination [facility] Start: 11-14-2019 Annual Wellness Visit (AWV) Annual Wellness Visit (AWV) [facility] Start: 10-05-2019 DIABETES SCREEN DIABETES SCREEN [facility] Start: 06-14-2019 Influenza vaccination Flu vaccine (#1) [facility] Work Phone: Start: 05-25-2019 End: 05-25-2019 Appointment Appointment [facility] Work Phone: Start: 03-10-2017 FECAL OCCULT BLOOD FECAL OCCULT BLOOD [facility] Start: 2016 ADVANCE DIRECTIVE DISCUSSION ADVANCE DIRECTIVE DISCUSSION [facility] Start: 2016 BONE DENSITY BONE DENSITY [facility] Start: 2016 DEXA (modify frequency per FRAX score) DEXA (modify frequency per FRAX score) [facility] Work Phone: Start: 2016 Fall risk assessment Falls Risk Assessment [facility] Start: 2016 Pneumococcal 65+ years Vaccine (1 of 1 - PPSV23) Pneumococcal 65+ years Vaccine (1 of 1 - PPSV23) [facility] Work Phone: Start: 2016 PNEUMOVAX AGE 65 AND OVER WITH 5YR LOOKBACK (#1) PNEUMOVAX AGE 65 AND OVER WITH 5YR LOOKBACK (#1) [facility] Start: 2006 Screening for osteoporosis DEXA (modify frequency per FRAX score) [place], [place] Start: 2001 Administration of herpes zoster vaccine Zoster Vaccines (1 of 2) [facility] Start: 2001 Breast cancer screen Breast cancer screen [facility] Work Phone: Start: 2001 Colon cancer screen colonoscopy Colon cancer screen colonoscopy [facility] Work Phone: Start: 2001 Screening for malignant neoplasm of breast Breast cancer screen [place], [place] Start: 2001 Screening for malignant neoplasm of colon [place] Start: 2001 Shingles Vaccine (1 of 2) Shingles Vaccine (1 of 2) [facility] Work Phone: Start: 2001 SHINGRIX VACCINE (1 of 2) SHINGRIX VACCINE (1 of 2) [facility] Start: 1996 COLOGUARD (FIT-DNA) COLOGUARD (FIT-DNA) [facility] Start: [address] COLONOGRAPHY [facility] Start: 1996 LIPID SCREEN LIPID SCREEN [facility] Start: 1996 SIGMOIDOSCOPY SIGMOIDOSCOPY [facility] Start: 1991 Lipid screen Lipid screen [facility] Work Phone: Start: 1991 Mammography MAMMOGRAM [facility] Start: 1991 Screening mammography Mammogram [facility] Start: 1970 DTaP/Tdap/Td vaccine (1 - Tdap) DTaP/Tdap/Td vaccine (1 - Tdap) [place] Start: 1970 Urine microalbumin profile DTAP,TDAP,TD (1 - Tdap) [facility] Start: 1969 ANNUAL PCP TEAM CHRONIC DISEASE VISIT ANNUAL PCP TEAM CHRONIC DISEASE VISIT [facility] Start: 1969 HEPATITIS C SCREENING HEPATITIS C SCREENING [facility] Start: 1969 Hepatitis C screening Hepatitis C Screening [facility] Start: 1967 COVID-19 Vaccine (1) COVID-19 Vaccine (1) [facility] Work Phone: Start: 1963 COVID-19 Vaccine (1) COVID-19 Vaccine (1) [facility] Start: 1963 Depression screening using PHQ-9 (Patient Health Questionnaire 9) score Depression Screening (PHQ9) [facility] Start: 1962 DTaP/Tdap/Td vaccine (1 - Tdap) DTaP/Tdap/Td vaccine (1 - Tdap) [facility] Work Phone: Start: 1961 Lipid panel Lipid screen [place] Start: 1957 Pneumococcal Vaccine: Age 65+ (1 of 2 - PPSV23) Pneumococcal Vaccine: Age 65+ (1 of 2 - PPSV23) [facility] Start: 1957 PNEUMOCOCCAL: 65+ (1 - PCV) PNEUMOCOCCAL: 65+ (1 - PCV) [facility] Start: 1954 History and physical examination, annual for health maintenance Wellness Visit [facility] Start: 1951 COVID-19 VACCINE (#1) COVID-19 VACCINE (#1) [facility] Start: 1951 Hepatitis C screen Hepatitis C screen [facility] Work Phone: Start: 1951 Hepatitis C screening Hepatitis C screen [place], [place] Start: 1951 Screening for osteoporosis Dexa Scan [facility] Start: 1951 Tetanus vaccination Tetanus: Every 10yrs [facility] Alanine aminotransfe rase [Enzymatic activity/volume] in Serum or Plasma [facility] Alanine aminotransfe rase [Enzymatic activity/volume] in Serum or Plasma [facility] Alanine aminotransfe rase [Enzymatic activity/volume] in Serum or Plasma [facility] Alanine aminotransfe rase [Enzymatic activity/volume] in Serum or Plasma [facility] Albumin [Mass/volume ] in Serum or Plasma [facility] Albumin [Mass/volume ] in Serum or Plasma [facility] Albumin [Mass/volume ] in Serum or Plasma [facility] Albumin [Mass/volume ] in Serum or Plasma [facility] Alkaline phosphatase [Enzymatic activity/volume] in Serum or Plasma [facility] Alkaline phosphatase [Enzymatic activity/volume] in Serum or Plasma [facility] Alkaline phosphatase [Enzymatic activity/volume] in Serum or Plasma [facility] Alkaline phosphatase [Enzymatic activity/volume] in Serum or Plasma [facility] Anion gap measurement [facility] Anion gap measurement [facility] Anion gap measurement [facility] Anion gap measurement [facility] Aspartate aminotrans ferase [Enzymatic activity/volume] in Serum or Plasma [facility] Aspartate aminotrans ferase [Enzymatic activity/volume] in Serum or Plasma [facility] Aspartate aminotrans ferase [Enzymatic activity/volume] in Serum or Plasma [facility] Aspartate aminotrans ferase [Enzymatic activity/volume] in Serum or Plasma [facility] Bacteria identified in Blood by Culture Blood Culture [facility] Bacteria identified in Blood by Culture Blood Culture [facility] Bacteria identified in Urine by Culture Urine Culture [facility] Basic metabolic 2000 panel Basic Metabolic Panel Lab Routine Daily until discontinued starting 10/23/2020, 2 completed [place], [place] Comment on above: Daily until discontinued starting 2020, 2 completed Bilirubin, total measurement [facility] Bilirubin, total measurement [facility] Bilirubin, total measurement [facility] Bilirubin, total measurement [facility] BUN/Creatinine ratio [facility] BUN/Creatinine ratio [facility] BUN/Creatinine ratio [facility] BUN/Creatinine ratio [facility] Calcium [Mass/volume ] in Serum or Plasma [facility] Calcium [Mass/volume ] in Serum or Plasma [facility] Calcium [Mass/volume ] in Serum or Plasma [facility] Calcium [Mass/volume ] in Serum or Plasma [facility] Carbon dioxide, tota l [Moles/volume] in Serum or Plasma [facility] Carbon dioxide, tota l [Moles/volume] in Serum or Plasma [facility] Carbon dioxide, tota l [Moles/volume] in Serum or Plasma [facility] Carbon dioxide, tota l [Moles/volume] in Serum or Plasma [facility] Chloride [Moles/volu me] in Serum or Plasma [facility] Chloride [Moles/volu me] in Serum or Plasma [facility] Chloride [Moles/volu me] in Serum or Plasma [facility] Chloride [Moles/volu me] in Serum or Plasma [facility] Creatinine [Moles/vo lume] in Serum or Plasma [facility] Creatinine [Moles/vo lume] in Serum or Plasma [facility] Creatinine [Moles/vo lume] in Serum or Plasma [facility] Creatinine [Moles/vo lume] in Serum or Plasma [facility] End: 07-09-2021 Dxa bone density study 1/> sites axial skel DXA-AXIAL SKELETON Radiology Routine Screening for osteoporosis Menopause 1 Occurrences starting 06/08/2020 until 07/09/2021 [facility] Comment on above: 1 Occurrences starting 06/08/2020 until 07/09/2021 EKG 12 Lead - Chest Pain EKG 12 Lead - Chest Pain ECG STAT 11/03/2019 3:29 PM EST [facility] Work Phone: Glucose [Mass/volume ] in Serum or Plasma [facility] Glucose [Mass/volume ] in Serum or Plasma [facility] Glucose [Mass/volume ] in Serum or Plasma [facility] Glucose [Mass/volume ] in Serum or Plasma [facility] Haptoglobin [Mass/vo lume] in Serum or Plasma [facility] Hematocrit [Volume F raction] of Blood [facility] Hematocrit [Volume F raction] of Blood [facility] Hematocrit [Volume F raction] of Blood [facility] Hematocrit [Volume F raction] of Blood [facility] Hematocrit [Volume F raction] of Blood [facility] Hematocrit [Volume F raction] of Blood [facility] Hematocrit [Volume F raction] of Blood [facility] Hemoglobin [Mass/vol ume] in Blood [facility] Hemoglobin [Mass/vol ume] in Blood [facility] Hemoglobin [Mass/vol ume] in Blood [facility] Hemoglobin [Mass/vol ume] in Blood [facility] Hemoglobin [Mass/vol ume] in Blood [facility] Hemoglobin [Mass/vol ume] in Blood [facility] Hemoglobin [Mass/vol ume] in Blood [facility] End: 06-08-2021 HERPES SIMPLEX CULT HERPES SIMPLEX CULT Microbiology Routine Vulvar lesion 1 Occurrences starting 06/08/2020 until 06/08/2021 [facility] Comment on above: 1 Occurrences starting 06/08/2020 until 06/08/2021 End: 06-08-2021 HERPES SIMPLEX IGM AB HERPES SIMPLEX IGM AB Lab Routine Vulvar lesion 1 Occurrences starting 06/08/2020 until 06/08/2021 [facility] Comment on above: 1 Occurrences starting 06/08/2020 until 06/08/2021 End: 06-08-2021 HERPES SIMPLEX TYPE 1 AND 2 IG HERPES SIMPLEX TYPE 1 AND 2 IG Lab Routine Vulvar lesion 1 Occurrences starting 06/08/2020 until 06/08/2021 [facility] Comment on above: 1 Occurrences starting 06/08/2020 until 06/08/2021 End: 12-14-2020 Intermittent pulse oximetry Pulse Oximetry Spot Check Respiratory Care Routine One Time for 1 Occurrences starting 12/14/2020 until 12/14/2020 [facility] Work Phone: Comment on above: One Time for 1 Occurrences starting 12/2020 until 12/14/2020 Leukocytes [#/volume ] in Blood [facility] Leukocytes [#/volume ] in Blood [facility] Leukocytes [#/volume ] in Blood [facility] Leukocytes [#/volume ] in Blood [facility] Leukocytes [#/volume ] in Blood [facility] Leukocytes [#/volume ] in Blood [facility] Leukocytes [#/volume ] in Blood [facility] Mean corpuscular hem oglobin concentration determination [facility] Mean corpuscular hem oglobin concentration determination [facility] Mean corpuscular hem oglobin concentration determination [facility] Mean corpuscular hem oglobin concentration determination [facility] Mean corpuscular hem oglobin concentration determination [facility] Mean corpuscular hem oglobin concentration determination [facility] Mean corpuscular hem oglobin concentration determination [facility] Mean corpuscular hem oglobin determination [facility] Mean corpuscular hem oglobin determination [facility] Mean corpuscular hem oglobin determination [facility] Mean corpuscular hem oglobin determination [facility] Mean corpuscular hem oglobin determination [facility] Mean corpuscular hem oglobin determination [facility] Mean corpuscular hem oglobin determination [facility] Measurement of renal function [facility] Measurement of renal function [facility] Measurement of renal function [facility] Measurement of renal function [facility] End: 02-15-2021 MRA head without contrast MRA head without contrast Imaging Routine Once for 1 Occurrences starting 02/15/2021 until 02/15/2021 [facility] Work Phone: Comment on above: Once for 1 Occurrences starting 02/16/20 until 02/15/2021 End: 02-15-2021 MRA neck with and without contrast MRA neck with and without contrast Imaging Routine Once for 1 Occurrences starting 02/15/2021 until 02/15/2021 [facility] Work Phone: Comment on above: Once for 1 Occurrences starting 02/16/20 until 02/15/2021 End: 12-13-2020 MRI BRAIN W WO CONTRAST MRI BRAIN W WO CONTRAST Imaging Routine Once for 1 Occurrences starting 12/13/2020 until 12/13/2020 [facility] Work Phone: Comment on above: Once for 1 Occurrences starting 12/14/19 until 12/13/2020 Neutrophil count [facility] Neutrophil count [facility] Neutrophil count [facility] Neutrophil count [facility] Neutrophil count [facility] Neutrophil count [facility] Neutrophil count [facility] Neutrophil percent differential count [facility] Neutrophil percent differential count [facility] Neutrophil percent differential count [facility] Neutrophil percent differential count [facility] Neutrophil percent differential count [facility] Neutrophil percent differential count [facility] Neutrophil percent differential count [facility] Oxygen therapy [[facility] Data Set] [facility] [place], [place] Comment on above: Daily until discontinued starting 2020 Daily until disconti nued starting 12/12/2020 Daily until disconti nued starting 01/14/2021 Daily until disconti nued starting 02/15/2021 PAP REFLEX HPV MRNA WHEN ASCUS PAP REFLEX HPV MRNA WHEN ASCUS Lab Routine Gynecologic exam normal Cervical cancer screening Ordered: 06/08/2020 [facility] Comment on above: Ordered: 06/08/2020 Patient Education [facility] [employer] Work Phone: Patient referral [facility] Work Phone: Platelets [#/volume] in Blood [facility] Platelets [#/volume] in Blood [facility] Platelets [#/volume] in Blood [facility] Platelets [#/volume] in Blood [facility] Platelets [#/volume] in Blood [facility] Platelets [#/volume] in Blood [facility] Platelets [#/volume] in Blood [facility] Potassium [Moles/vol ume] in Serum or Plasma [facility] Potassium [Moles/vol ume] in Serum or Plasma [facility] Potassium [Moles/vol ume] in Serum or Plasma [facility] Potassium [Moles/vol ume] in Serum or Plasma [facility] Red blood cell count [facility] Red blood cell count [facility] Red blood cell count [facility] Red blood cell count [facility] Red blood cell count [facility] Red blood cell count [facility] Red blood cell count [facility] Red cell distributio n width determination [facility] Red cell distributio n width determination [facility] Red cell distributio n width determination [facility] Red cell distributio n width determination [facility] Red cell distributio n width determination [facility] Red cell distributio n width determination [facility] Red cell distributio n width determination [facility] Respiratory microbia l culture Respiratory Culture [facility] End: 07-08-2021 Screening mammography bi 2-view breast inc cad TOÑITO SCREENING Radiology Routine Gynecologic exam normal Breast screening 1 Occurrences starting 06/08/2020 until 07/08/2021 [facility] Comment on above: 1 Occurrences starting 06/08/2020 until 07/08/2021 Sodium [Moles/Vol] [employer] Work Phone: Sodium [Moles/volume ] in Serum or Plasma [facility] Sodium [Moles/volume ] in Serum or Plasma [facility] Sodium [Moles/volume ] in Serum or Plasma [facility] Sodium [Moles/volume ] in Serum or Plasma [facility] Spirometry panel Incentive veronica metry Respiratory Care Routine Every 2hr while awake until discontinued starting 01/14/2021 [facility] [employer] Work Phone: Comment on above: Every 2hr while awake until discontinued starting 01/14/2021 Total protein measurement [facility] Total protein measurement [facility] Total protein measurement [facility] Total protein measurement [facility] Urea nitrogen [Mass/ volume] in Serum or Plasma [facility] Urea nitrogen [Mass/ volume] in Serum or Plasma [facility] Urea nitrogen [Mass/ volume] in Serum or Plasma [facility] Urea nitrogen [Mass/ volume] in Serum or Plasma [facility] Payers Date Payer Category Payer Self-pay [id number] 2022 Medicare [id number] 2022 Unknown ANTHBERRY BLUE CROS S AND BLUE SHIELD ANTHEM MEDIBLUE HMO [id number] 2022-Present [phone] [address] [place] [address] HMO [id number] 2020 Medicare HUMANA MANAGED Ruben HUYNHA MCR ADVANTAGE CHOICE PPO [id number] 2020-Present [id number] 2019 Medicare [id number] 2018 Medicare MMO MEDICARE MMO MEDADVANTAGE HMO [id number] 2018-Present HMO [id number] 2016 Unknown [id number] 1950 Unknown [id number] 1950 Unknown [id number] 2 1950 Unknown [id number] 2 Medicare [id number] Medicare [id number] Unknown [id number] 2 Unknown [id number] Social History Date Type Detail Facility Start: 11-03-2019 End: 06-08-2020 Tobacco smoking status NHIS Current every day smoker [facility] Start: 06-08-2020 End: 03-13-2021 Tobacco use and exposure Never used [facility] Start: 06-08-2020 Alcohol intake Lifetime non-d flex (finding) [facility] Start: 06-08-2020 End: 06-13-2020 History SDOH Alcohol Frequency 1 [facility] Start: 1950 Sex Assigned At Not on file [facility] [employer] Work Phone: Start: 09-07-2022 End: 09-18-2022 Exposure to SARS-CoV-2 (event) Not sure [facility] History of tobacco use Cigarette Smoker [employer] Work Phone: Start: 11-03-2019 End: 10-21-2020 Cigarettes smoked current (pack per day) - Reported [facility] Work Phone: Start: 11-03-2019 End: 10-21-2020 Alcohol intake Current drinker of alcohol (finding) [facility] Work Phone: Start: 07-20-2020 Tobacco [facility] [place] [place] Start: 10-20-2020 Alcohol Comment patient states she drinks, but not everyday. Daughter states patient drinks vodka. [place] Start: 10-20-2020 Alcohol Comment patient states she drinks, but not everyday. Daughter states patient drinks vodka. [facility] Work Phone: Start: 03-13-2021 Tobacco smoking status NHIS Current some day smoker [facility] Start: 03-11-2021 Alcohol Comment 1 bottle vodka daily [facility] Exposure to SARS-CoV-2 (event) Unable to assess [facility] Start: 02-05-2022 End: 12-16-2022 Tobacco smoking status NHIS Unknown if ever smoked [facility] Start: 03-06-2021 Occasional [facility] Start: 01-21-2021 None [facility] Start: 03-06-2021 Homeless [facility] Start: 03-06-2021 Cigarettes [facility] Start: 1950 Sex Assigned At Female W [facility] Start: 06-15-2020 Alcohol intake Ex-drinker (finding) [facility] Start: 06-13-2020 Alcohol Comment recovering [facility] Tobacco smoking status No Smoking Status Entered [facility] NEGATED: Highlighted rowStart: 05-14-2019 End: 05-14-2019 Alcohol use Alcohol use [facility] [employer] Work Phone: NEGATED: Highlighted rowStart: 05-14-2019 End: 05-14-2019 Assertion Current every day smoker [facility] [employer] Work Phone: NEGATED: Highlighted rowStart: 05-14-2019 End: 05-14-2019 Details of drug misuse behavior Details of drug misuse behavior [facility] [employer] Work Phone: NEGATED: Highlighted rowStart: 05-14-2019 End: 05-14-2019 How many days of moderate to strenuous exercise, like a brisk walk, did you do in the last 7 days? How many days of moderate to strenuous exercise, like a brisk walk, did you do in the last 7 days? [facility] [employer] Phone: NEGATED: Highlighted rowStart: 05-14-2019 End: 05-14-2019 Tobacco use and exposure Tobacco use and exposure [facility] [employer] Phone: Goals Date Patient Goal Desired Activity /State Functional Status Date Assessment Result Facility 12-18-2022 Functional status Bedrest [facility] Work Phone: 02-06-2022 Functional status Ambulates [facility] Work Phone: Mental Status Date Assessment Result Facility 12-18-2022 Cognitive function Touch/Shaking;Light Pa in [facility] Work Phone: 12-16-2022 Cognitive function Level Of Cons ciousness Postictal [facility] Work Phone: 04-27-2022 Cognitive function Voice/Name [facility] Work Phone: 02-06-2022 Cognitive function Appropriate;Cooperativ e [facility] Work Phone: Clinical Notes 10-24-2020 to 01-08-2023 Germaine Avila APRN.[facility] - 12/18/2022 9:34 AM EST Note Date & Type Note Facility 01-08-2023 Note [facility] 01-08-2023 Note [facility] 01-07-2023 Note [facility] 01-07-2023 Note [facility] 01-06-2023 Note [facility] 01-05-2023 Note [facility] 01-04-2023 Note [facility] 01-04-2023 Note [facility] 01-04-2023 Note [facility] 01-03-2023 Note [facility] 01-03-2023 Note [facility] 01-02-2023 Note [facility] 01-02-2023 Note [facility] 01-02-2023 Note [facility] 01-01-2023 Note [facility] 01-01-2023 Note [facility] 12-31-2022 Note [facility] 12-31-2022 Note [facility] 12-30-2022 Note [facility] 12-29-2022 Note [facility] 12-29-2022 Note HNO ID: [id number] Author: Oscar Vargas DO Service: Neurology ICU Author Type: Resident Type: Plan of Care Filed: 12/29/2022 4:59 AM Note Text: BEM report request at 4:44am from Junior. Reported back at 4:50am. No seizures reviewed file [id number] [facility] 12-28-2022 Note [facility] 12-28-2022 Note [facility] 12-27-2022 Note [facility] 12-27-2022 Note [facility] 12-26-2022 Note [facility] 12-25-2022 Note [facility] 12-25-2022 Note [facility] 12-24-2022 Note [facility] 12-24-2022 Note [facility] 12-23-2022 Note [facility] 12-23-2022 Note HNO ID: [id number] Author: Interface Note Service: ? Author Type: ? Type: Progress Notes Filed: 12/23/2022 3:06 AM Note Text: Epic Scheduled Downtime: 12/23/2022 12:30:16 AM to 12/23/2022 1:50:00 AM [facility] 12-22-2022 Note [facility] 12-22-2022 Note HNO ID: [id number] Author: Interface Note Service: ? Author Type: ? Type: Progress Notes Filed: 12/22/2022 4:22 AM Note Text: Epic Scheduled Downtime: 12/22/2022 12:00:37 AM to 12/22/2022 4:09:02 AM [facility] 12-21-2022 Note [facility] 12-21-2022 Note [facility] 12-20-2022 Note [facility] 12-20-2022 Note [facility] 12-20-2022 Note [facility] 12-20-2022 Note [facility] 12-19-2022 Note [facility] 12-19-2022 Note [facility] 12-19-2022 Note [facility] 12-19-2022 Note [facility] 12-18-2022 Note [facility] 12-18-2022 Note [facility] 12-18-2022 Note HNO ID: [id number] Author: Germaine Avila APRN.YARN BLEACHING MACHINE OPERATOR Service: ? Author Type: Nurse Practitioner Type: Progress Notes Filed: 12/18/2022 11:41 AM Note Text: CRITICAL CARE TRANSPORT MEDICAL CONTROL CONSULT NOTE Patient Name: Jazmin Johnson Service Date: December 18, 2022 Referring Facility: [facility] Accepting Facility: [facility] REASON FOR TRANSPORT: Pt requires specialized neurological [...] reported to be intoxicated) who presented to [facility] for evaluation of seizure activity. Pt [...] read back via telephone with [facility] Transport membership sales representative, Daron Kahn RN SIGNATURE: Germaine Avila APRN.CNP Acute Care Nurse Practitioner Critical Care Transport [facility] 12-18-2022 History of Present illness Narrative Images from the original note were not included. CRITICAL CARE TRANSPORT MEDICAL CONTROL CONSULT NOTE Patient Name: Jazmin Johnson Service Date: December 18, 2022 Referring Facility: [facility] Accepting Facility: [facility] REASON FOR TRANSPORT: Pt requires specialized neurological [...] reported to be intoxicated) who presented to [facility] for evaluation of seizure activity. Pt [...] confirmed and read back via telephone with [facility] Transport membership sales representative, Daron Kahn RN SIGNATURE: Germaine Avila APRN.CNP Acute Care Nurse Practitioner Critical Care Transport documented in this encounter [facility] 12-17-2022 Consult note Note Date/Time December 17, 2022 5:06pm [facility] [address] [place] [address] Consultation - Oncology IP 12/17/22 1702 MR#: [id number] Acct: [id number] Name: JAZMIN JOHNSON Rep #:[id number] : 1950 72 From: Su Bautista INTERNET DATABASE SPECIALIST INTERNET DATABASE SPECIALIST-C PCP: Dr. Khai Palacios MD Status:ADM I N Location: ICU CVICU20 1-1 Assessment & Plan Assessment/Plan (1) Thrombocytopenia: Status: Acute Code(s): D69.6 - Thrombocytopenia, unspecified Plan: As evidenced by platelet count 15,000 today, 31,000 on presentation to the ED yesterday. Despite history of EtOH abuse, it appears her baseline is nearly normal (146,000 on September 14, 2022). Differentials include ITP versus TTP. PLASMIC score for estimating risk of severe FRQFVW49 deficiency is 5 indicating intermediate risk. Labs, specifically haptoglobin, retic, direct bilirubin and BAPTPP30, for conclusive diagnosis are pending. Advise transfer for plasma exchange when feasible. In the interim may consider Dex 40 mg IV daily x4 with GI prophylaxis. Case discussed with Dr. Garcia who was in agreement with aforementioned plan. [facility] will continue to follow. (2) History of [...] fall, who reportedly presented by squad to [facility] ED on 12/16/22 after boyfriend witnessed whatwas [...] pending. Haptoglobin pending Advanced Directives Power of Upper Leather Sorter: No Living Will: No PFSH Medical History AA (alcohol abuse) Alcohol [...] 81.3 H, Lymph % (Auto) 8.5 L, [place] %(Auto) 9.4, Eos % (Auto) 0.1, Baso [...] Catheter Urine Culture - Preliminary GNR lactose length control tester Diagnostic Data Chest X-Ray 12/16/22 18:30 IMPRESSION: There are no acute findings. There is a feeding tube/ nasogastric tube noted. The tip is not seen because it extends off the film. Electronically Signed: Jaems Wilkins MD at 18:52 EST , KUB [...] , 12/18/22 0834 <Electronically signed by Su Bautista INTERNET DATABASE SPECIALIST CAMPOS> CC: CAMPOS Bazan; ALESSIO-Tarsha Bautista; Dr. Paco Thompson MD; Dr. Oscar Topete MD; Dr. Roberth Aldana DO; Dr. Rd Kincaid MD; Dr. Nidia Pham DO; Dr. Ankit Izquierdo MD; Dr. Jessica Garcia MD; Dr. Rk Nelson MD; Dr. Osvaldo Lee MD; Dr. Justino Kathleen MD; Dr. Bill Dubon DO; Dr. Khai Palacios MD; Dr. Julian Martinez MD ~ Signed [facility] Work Phone: 1(549) 611-449303-06-[address] Pham [facility] December 17, 2022 7:35am Note Date/Time December 17, 2022 7:35 am [facility] Medical Records Department [address] [place] [address] Telemedicine Confirmation Receipt 12/17/22 MR#: [id number] Acct: [id number] Name: JAZMIN JOHNSON Rep #:[id number] : 1950 72 From: Nidia Pham DO PCP: Dr. Khai Palacios MD Status:ADM I N [facility] Telemed has confirmed receipt of a request for visit. This document confirms receipt of the order initiating the consult. To find the results of the consultation, please view the patient's reports for the scanned Telemed Consult. [facility] Work Phone: 1(531) 425-273603-06-[address] Aldana [facility] December 18, 2022 7:44am Note Date/Time December 17, 2022 6:57 am [facility] Medical Records Department [address] [place] [address] Consultation - R D Engineer 12/17/22 0650 MR#: [id number] Acct: [id number] Name: JAZMIN JOHNSON Rep #:[id number] : 1950 72 From: Roberth Aldana DO PCP: Dr. Khai Palacios MD Status:ADM I N Location: ICU CVICU 1-1 Assessment & Plan Assessment/Plan (1) Acute [...] that ITP/TTP are considerations. This would require CYSQOB14 testing. Haptoglobin and reticulocyte count are pending. [...] admitted to the medical intensive care unit. [facility] Medical History AA (alcohol abuse) [...] 71.7 H, Lymph % (Auto) 12.6 L, [place] % (Auto) 10.4 H, Eos % (Auto) [...] Clarity Cloudy, Urine pH 6.5, Ur Specific [place] 1.015, Urine Protein 100 H, Urine Glucose [...] 81.3 H, Lymph % (Auto) 8.5 L, [place] %(Auto) 9.4, Eos % (Auto) 0.1, Baso [...] 20:25 EST , Charges/Coding Procedures Hospitalists Procedures: 30577 Critial Care 1st Hr 12/18/22 0744 <Electronically signed by Roberth Aldana DO> Cosigner Signature (if applicable): CC: INTERNET DATABASE SPECIALIST-Tarsha Bazan; INTERNET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 for further treatment. On the day [...] DISCHARGE MEDICATIONS: Jazmin Johnson Home Medication Instructions EBONY:[id number] Printed on:12/28/20 8403 Medication Information docusate (COLACE, DULCOLAX) 100 MG [...] mouth nightly Multiple Vitamins-Minera (more content not included)...[facility] 11-15-2020 [facility] Discharge Summary and Transition Note [...] folic acid, thiamine, meclizine. Ordered a cane. Neno Johnsonbrennon Jacob Home Medication Instructions EBONY:[id number] Printed on:11/16/20 1257 Medication Information Cyanocobalamin (VITAMIN [...] mouth nightly vitamin D (ERGOCALCIFEROL) 1.25 MG (38977 UT) CAPS capsule Take 1 capsule by [...] Complexity: follow up within 7-14 calendar days (15039) [x] Severe Complexity: follow up within 7 calendar days (81964) FOLLOW UP TESTING, PENDING RESULTS OR REFERRALS [...] time frame. DISCHARGE TIME: > 30 minutes [facility]01-11-2021 NoteDepartment of Trauma / Critical Care Discharge [...] He called paramedics who brought her to [place] ER where she was found to have facial fractures and a head bleed Hospital course: Ms. Johnson presented as a direct admit on 10/19 from [place] ER with the following injuries Right temporal lobe [...] in 2 weeks SPI trauma 2 weeks SPRING FORMER 2 weeks Optho 1 weeks Ortho Treatments [...] Tomography ACCESSION EXAM DATE/TIME PROCEDURE ORDERING PROVIDER [id number] 10/20/2020 11:49 EST CTA Head/Neck w/ + w/o MD CL, JAJA contrast CPT code 17518 83161 Q9967 Reason For Exam (more content not included)...[facility] SystemEvaluation + Plan note No data available for this section [facility] Evaluation note* Diagnosis Altered mental status, unspecified altered mental status type- Primary documented in this encounter [facility] Work Phone: Evaluation note* Diagnosis Encephalopathy- Primary Unspecified encephalopathy Alcoholism (HCC) Other and unspecified alcohol dependence, unspecified drinking behavior Altered mental status, unspecified altered mental status type [facility] encounter [facility] Diagnosis Acute alcoholic intoxication without complication (HCC)- Primary Injury of head, initial encounter Alcohol abuse Alcohol abuse, unspecified documented in this encounter [facility] Work Phone: Evaluation note* Diagnosis Onset Date Resolution Status Acute drug overdose acute Acute encephalopathy acute Alcohol withdrawal acute AA (alcohol abuse) chronic [facility] Work Phone: Evaluation note* Diagnosis Onset Date Resolution Status Acute drug overdose resolved Acute encephalopathy resolve d Alcohol withdrawal resolved [facility] Work Phone: Evaluation noteNo assessment information available [facility] Work Phone: Evaluation note* Diagnosis Onset Date Resolution Status Abnormal transaminases acute Lactic acidosis acute Acute alteration in mental status acute Acute dehydration acute Acute kidney injury acute Acute respiratory failure ac belkofski Acute UTI acute Alcoholic hepatitis acute Erythrocytosis acute History of ETOH abuse acute Hyperbilirubinemia acute Hypercalcemia acute Leukocytosis acute Polysubstance abuse acute Post-ictal state acute Seizure acute Thrombocytopenia acute Toxic metabolic encephalopathy acute [facility] Work Phone: Evaluation note* Diagnosis Onset Date Resolution Status Acute alteration in mental status acute Acute UTI acute Abnormal transaminases resol jenise Lactic acidosis resolved Acute dehydration resolved Acute respiratory failure re solved [facility] Work Phone: History and physical note Author Dr. Pham [facility] December 16, 2022 6:23pm Note Date/Time December 16, 2022 5:29 pm [facility] Medical Records Department [address] [place] [address] H&P Exam - Hospitalist 12/16/22 1723 MR#: [id number] Acct: [id number] Name: JAZMIN JOHNSON Rep #:[id number] : 1950 72 From: Nidia Pham DO PCP: Dr. Khai Palacios MD Status:ADM I N Location: ICU CVICU 1- HPI - General General Date of Admission: 12/16/22 Date of Service: 12/16/22 Chief Complaint: Seizure HPI Narrative JAZMIN JOHNSON, is a 72 F who presented to the emergency department at [facility] on 12/16/2022 for seizure. The patient is not able to give anyhistory and she is alone at the time of my evaluation. All history was obtainedfrom the emergency department physician and PA. She evidently has a history of alcohol abuse with previous subdural hematoma. Her boyfriend was reported to [employer]o her house this afternoon and there was [...] no ST-T wave changes consistentwith acute ischemia. PFSH Medical History AA (alcohol abuse) Alcohol [...] 71.7 H, Lymph % (Auto) 12.6 L, [place] % (Auto) 10.4 H, Eos % (Auto) [...] Clarity Cloudy, Urine pH 6.5, Ur Specific [place] 1.015, Urine Protein 100 H, Urine Glucose [...] the bedside Charges/Coding Visit Charges Inpatient E&M: 09618 Init Hosp L3 12/16/22 1823 <Electronically signed by Nidia Pham DO> Cosigner Signature (if applicable): CC: Dr. Nidia Pham DO; Dr. Khai Palacios MD~ Signed [facility] Work Phone: Hospital Discharge instructions* Instructions* [...] groups. These groups include Alcoholics Anonymous and [employer] (Self-Management and Recovery Training). Some people are [...] counselors, doctors, social workers, nurses, and a housing case manager. A housing case manager helps plan and manage your treatment. Follow-up care is a herrera part of your treatment and safety. Be sure to make and go to all appointments, and call your doctor if you are having problems. It's also a good idea to know your test resultsand keep a list of the medicines you take. Where can you learn more? Go to [email or web address] ([email or web address] and sign in to your [employer]Panel account. Enter H758 in the Search Health Information box to learn more about Learning About Alcohol Use Disorder. If you do not have an account, please click on the Sign Up Now link. Current as of: April 11, 2020 Content Version: 12.8 UserApp. Care instructions adapted under license by [employer]. If you have questions about a medical condition or this instruction, always ask your healthcare professional. [employer] disclaims any warranty or liability for your [...] a bike, or operate machinery. Take an saqx-tgo-fpdiicf pain medicine, such as acetaminophen (Tylenol), ibuprofen [...] Where can you learn more? Go to [email or web address] ([email or web address] and sign in to your MobPanel account. Enter E235 in the Search Health Information box to learn more about Learning About a Closed Head Injury. If you do not have an account, please click on the Sign Up Now link. Current as of: May 17, 2020 Content Version: 12.8 UserApp. Care instructions adapted under license by [employer]. If you have questions about a medical condition or this instruction, always ask your healthcare professional. [employer] disclaims any warranty or liability for your use of this information. documented in this encounterSUMOptini Work Phone: Hospital Discharge instructions* Attachments The following attachments cannot be sent through Care Everywhere. * Alcohol Intoxication: Acute (Swiss) * Head Injury: Closed: General Info (Swiss) documented in this encounterSUMMA Work Phone: Hospital Discharge instructions No data available for this section [facility] Progress note No data available for this section [facility] Summary Purpose Family History No Family History Records Found Relationship Condition Age at Onset Recorded Date/T ashely mother Cardiac disease Unknown Hypertension Unknown father Cardiac disease Unknown Advance Directives No Advanced Directives Records FoundDocuments on File Type Date Recorded Patient Radio Electronics Officer Expl anation Advance Directive(s) 09/04/2017 1:06 PM Documents on File Type Date Recorded Patient Radio Electronics Officer Expl anation ACP-Advance Directive ACP-Power of Upper Leather Sorter Latest Code Status on File Code Status Date Activated Date Inactivated Comments Full Code 10/19/2020 9:49 PM Documents on File Type Date Recorded Patient Radio Electronics Officer Expl anation ACP-Advance Directive ACP-Power of Upper Leather Sorter Latest Code Status on File Code Status [...] Documents on File Type Date Recorded Patient Radio Electronics Officer Expl anation Advance Directives and Livin g Will 03/11/2021 8:24 AM Latest Code Status on File Code Status Date Activated Date Inactivated Comments Full Code 03/11/2021 10:11 AM 03/17/2021 2:19 PM Full Code - Unverified 03/11/2021 5:29 AM 03/11/2021 10: 11 AM Full Code - Unverified 03/11/2021 2:32 AM 03/11/2021 5:2 9 AM Documents on File Type Date Recorded Patient Radio Electronics Officer Expl anation Advance Directives and Living Will Power of Upper Leather Sorter Advance Directive Response Recorded Date/ Time Advance Directives No April 18 6:05pm Living Will No February 05, 2022 4:25pm Power of Upper Leather Sorter No February 05 4:25pm Advance Directive Response Recorded Date/ Time Advance Directives No April 18 5:05pm Living Will No September 14 1:51pm Power of Upper Leather Sorter No September 14, 2022 1:51pm Advance Directive Response Recorded Date/ Time Advance Directives No April 18 5 5:05pm Living Will No December 17, 2022 5:06pm Power of Upper Leather Sorter No December 17 5:06pm Latest Code Status on File Code Status Date Activated Date Inactivated Comments DNR-CCA 12/18/2022 4:54 PM DNR Order Discussed With: Surrogate Decision Randy er Surrogate Decision Maker Name: nimisha Sun Surrogate Decision Maker Full Code 12/18/2022 2:09 PM 12/18/2022 4:54 PM Full Code Order Discussed With: Surrogate Lazaroisi on Maker Surrogate Decision Maker Name: daughter Jessica Huerta Surrogate Decision Maker Advance Directive Response Recorded Date/ Time Advance Directives No April 18 5 6:05pm Living Will No December 17, 2022 6:06pm Power of Upper Leather Sorter No December 17 6:06pm Chief Complaint Chief [...] No history of dysuria, frequency or incontinence SPRING FORMER: Negative for abnormal vaginal bleeding, abnormal vaginal [...] MD documented in this encounter* Nicolle Lopes, PHOTOGRAPHIC PROCESS ATTENDANT - 10/24/2020 10:45 AM [facility] Speech Language Pathology Facility/Department: [facility] 3W TELEMETRY Daily Treatment Note NAME: Jazmin [...] None reported per pt Cognitive Linguistic: [facility] Mental Status ([facility]) exam was administered: Orientation: 2/3 correct Mental [...] speech therapy as outpatient. Nicolle Lopes MA, CCC-PHOTOGRAPHIC PROCESS ATTENDANT 10/24/2020 Time In: 1005 Time Out: 1035 An N95 mask, a full face shield and gloves were worn throughout this session. Michelle Timmons APRN - NP - 10/24/2020 10:43 AM EST Family Communication Number Called: NA Name of Designated Family Radio Electronics Officer: NA Relationship to Patient: spoke to patient Phone Call Outcome: I spoke with the individual listed above. Family Radio Electronics Officer Updated on the Following: Asked the patient if she would like me to contact her family. She states that she had spoken with both of her daughters last night and advised them of her discharge today. She chooses to stay with Max at this time and will be in touch with her daughters. She asked that I NOT call them today. * Michelle Rodriguez APRN - NP - 10/24/2020 6:10 AM EST Daily Trauma Progress Note 10/24/2020 Nurse Practitioner Admit Date: 10/19/2020 Hospital day 5 Fall SH History of Traumatic Injury: 70 y.o. female status post being found by significant other on the ground with facial bruising. He called paramedics who brought her to [place] [facility] where she was found to have [...] for any details corrected below. 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 A&O x3. No new c/o's. Facial ecchymoses [...] able to go to her home in [place] or her aunt's home in [place] if Jazmin is willing. * Germaine Woods APRN - CNP - 10/23/2020 3:30 PM EST CTSP regarding patients discharge plan. D/W Dr. Johnson who deems the patient to have capacity. D/W Social work Valeria as well as Dr. Lin-trauma surgeon bulk station agent. According to bedside nurse, Raymon is unable to care for patient at discharge. Patient states that she will go to her own home-but [facility]. Stated that it is in [place]. Daughter had called nursing first line production supervisor with concerns that Raymon could not take care of patient at discharge. According to Patient, she will stay with Raymon. Unable to locate phone number for Max-in [...] pt on schedule for OT eval. Nena Bond OTR/L * Germaine Woods, LABORER PIE BAKERY - YARN BLEACHING MACHINE OPERATOR - 10/23/2020 6:19 AM EST Daily Trauma [...] I (Arpit Rahman) personally supervised the physician assistant laboratory director in the evaluation and development of a [...] 11:45 AM EST Family Communication Number Called: [phone] Name of Designated Family Radio Electronics Officer: Simona Brooks Relationship to Patient: daughter Phone Call Outcome: There was no answer when the number listed above was called. and I left a HIPPAcompliant message at the number listed above. Family Radio Electronics Officer Updated on the Following: Message left to [facility] [phone] if needed. Willcall back as time allows. Germaine Lion APRN - CNP - 10/22/2020 6:10 AM [...] I (Arpit Rahman) personally supervised the physician assistant laboratory director in the evaluation and development of a [...] 12:15 PM EST Speech Language Pathology Facility/Department: [facility] ICU T2 Initial Cognitive Assessment NAME: Jazmin [...] RN managing Assessment: Cognitive Diagnosis: Administered the Eric Cognitive Assessment (version 8.1). Individual subtest scores [...] of care for cognitive retraining. Recommendations: Requires PHOTOGRAPHIC PROCESS ATTENDANT Intervention: Yes Duration/Frequency of Treatment: 2 weeks [...] Minutes 30 Total Treatment Time: 30 Ursula Petersen MS, CCC/ PHOTOGRAPHIC PROCESS ATTENDANT An N95 mask, a full face shield and gloves were worn throughout this session. 10/21/2020 12:15 PM * Lacy Davis, PT - 10/21/2020 11:24 AM EST Physical Therapy Facility/Department: 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 Goals and/or treatment [...] CAPS Take by mouth Daily Yes Historical ProviderMD traZODone (DESYREL) 100 MG tablet Take 100 mg by mouth nightly Yes Historical ProviderMD DULoxetine (CYMBALTA) 60 MG extended release capsule Take 60 mg by mouth daily Yes Historical ProviderMD pravastatin (PRAVACHOL) 40 MG tablet Take 40 mg by mouth daily Yes Historical ProviderMD Multiple Vitamins-Minerals (THERAPEUTIC MULTIVITAMIN-MINERALS) tablet Take 1 tablet by mouth daily Yes Historical ProviderMD Cholecalciferol (VITAMIN D3) 50 MCG (1999) CAPS Take by mouth daily Yes Historical ProviderMD Cyanocobalamin (VITAMIN B-12 PO) Take by mouth daily Yes Historical ProviderMD Lactobacillus (ACIDOPHILUS PO) Take by mouth daily Yes Historical ProviderMD zinc 50 MG TABS tablet Take 50 mg by mouth daily Yes Historical ProviderMD Hyaluronic Acid-Vitamin C (HYALURONIC ACID PO) Take 100 mg by mouth daily Yes Historical ProviderMD NONFORMULARY Take 1,000 mg by mouth daily S-adenosylmethosine Yes Historical ProviderMD aspirin 81 MG EC tablet Take 81 mg by mouth daily Yes Historical ProviderMD Allergies: Patient has no known allergies. Social [...] # 1.1 1.0 - 4.3 10*3/uL Absolute [place] # 0.5 0.0 - 0.8 10*3/uL Absolute [...] eGFR >90.0 >60 mL/min EGFR IF NonAfrican Angolan >90.0 >60 mL/min Calcium 8.9 8.4 - [...] when medically ready, I would hold anticoagulation/antiplateletagents. Juan Josera 7 days. She may follow-up in [address] head. Will sign off, please callwith questions. 1. Intracranial bleed (HCC) 2. Closed head injury, initial encounter 3. Acute alcoholic intoxication without complication (HCC) * Kush lA MD - 10/21/2020 9:57 AM EST NEUROSURGERY [...] alcoholic intoxication without complication (HCC) * Galdino Rosenberg, - 10/21/2020 7:44 AM EST Family Communication Number Called: [phone] Name of Designated Family Radio Electronics Officer: Simona Brooks Relationship to Patient: daughter Phone Call Outcome: I spoke with the individual listed above. Family Radio Electronics Officer Updated on the Following: patient status, SW consult * Lacy Davis, PT - 10/20/2020 2:37 PM EST Physical Therapy Attempted PT eval, pt politely refusing, stating she is willing to participate tomorrow if she getsto go home. Will retry PT eval tomorrow. Lacy Davis PT * Lacy Davis, PT - 10/20/2020 11:46 AM EST Physical Therapy Attempted PT eval, pt currently OOR. Will try back later as schedule permits. Lacy Davis PT * Ursula Petersen, PHOTOGRAPHIC PROCESS ATTENDANT - 10/20/2020 9:52 AM EST Speech Language Pathology Facility/Department: [facility] ICU T2 CLINICAL BEDSIDE SWALLOW EVALUATION NAME: [...] He called paramedics who brought her to [place] ER where she was found to have [...] if any concerns arise. Treatment Plan Requires PHOTOGRAPHIC PROCESS ATTENDANT Intervention: No Duration/Frequency of Treatment: na Recommended [...] Safety Devices in place: Yes Therapy Time PHOTOGRAPHIC PROCESS ATTENDANT Individual Minutes Time In: 934 Time Out: 949 Minutes: 15 PHOTOGRAPHIC PROCESS ATTENDANT Total Treatment Time Total Treatment Time: 15 Ursula Petersen MS, CCC/ PHOTOGRAPHIC PROCESS ATTENDANT 10/20/2020 9:53 AM An N95 mask, a full face shield and gloves were worn throughout this session. * Galdino Rosenberg DO - 10/20/2020 6:53 AM EST Family Communication Number Called: [phone] Name of Designated Family Radio Electronics Officer: Simona Brooks Relationship to Patient: daughter Phone Call Outcome: I spoke with the individual listed above. Family Radio Electronics Officer Updated on the Following: patient status \ documented in this encounter* Glenis Saavedra RN - 12/29/2020 9:53 AM EDT Pt is ok to discharge. No Iv access, will call report to rehab. Pt is aggreeable to discharge. * Rafael Livingston PT - 12/28/2020 3:09 PM EDT Physical Therapy Facility/Department: [facility] 3W TELEMETRY PT re-evaluation NAME: Jazmin Johnson : [...] RLE: WNL Strength LLE Strength LLE: WNL AM-[facility] Score -[facility] Inpatient Mobility Raw Score : 22 (12/28/201458) [facility] Inpatient T-Scale Score : 53.28 (12/28/201458) Mobility Inpatient CMS 0-100% Score: 20.91 (12/28/201458) Mobility Inpatient [facility] G-Code Modifier : CJ (12/28/201458) Goals Short [...] wore mask while amb in hallway. Rafael Livingston, PT * Rah Mann MD - 12/28/2020 2:37 PM EDT [facility] [address] [place], [place] [id number] Progress Note Subjective: Patient seen and examined [...] included. Hospitalist Progress Note 12/28/2020 11:46 AM [phone]: Please page me for patient care issues. [phone]: Please page [facility] night Hospitalist for any issues. Subjective: Admit Date: 12/12/2020 PCP: FRANK PALACIOS MD Room#: [id number] Interval History: Patient seen and examined No [...] noncompliance Plan Continue current treatment PT recommended [facility] for deep vein thrombosis prophylaxis Protonix for gastrointestinal prophylaxis Patient was informed about all work up and treatment plan Patient sister Nadia Elmore [phone], was informed about all work up, guardianship court hearing on january 03 Discussed with nursing staff, discharge to facility at [place] when insurance approved Discussed with T[facility] today Advance Directive: Full Code Discharge planning: Endy Mauricio MD Division of Hospitalist Medicine Inpatient Medical Services PAGER: [phone] * Rah Mann MD - 12/27/2020 1:13 PM EDT [facility] [address] [place] [address] Progress Note Subjective: Patient seen [...] M.D 12/27/2020 1:12 PM * Yari Gibbs, DATABASE MARKETING ANALYST - 12/27/2020 10:46 AM EDT Physical Therapy Facility/Department: [facility] TELEMETRY Daily Treatment Note NAME: Jazmin Johnson [...] self corrects balance loss right. AM-PAC Score AM-PAC Inpatient Mobility Raw Score : 16 (12/27/201046) AM-PAC Inpatient T-Scale Score : 40.78 (12/27/201046) Mobility Inpatient CMS 0-100% Score: 54.16 (12/27/201046) Mobility Inpatient CMS G-Code Modifier : CK (12/27/201046) Goals Short [...] included. Hospitalist Progress Note 12/27/2020 10:30 AM [phone]: Please page me for patient care issues. [phone]: Please page [facility] night Hospitalist for any issues. Subjective: Admit Date: 12/12/2020 PCP: FRANK PALACIOS MD Room#: [id number] Interval History: Patient seen and examined No [...] recommendation noted Continue current treatment PT recommended [facility] facility SCDs for deep vein thrombosis prophylaxis Protonix for gastrointestinal prophylaxis Patient was informed about all work up and treatment plan Discussed with nursing staff, likely discharge to facility at [place] when insurance approved Advance Directive: Full Code Discharge planning: Endy Mauricio MD Division of Hospitalist Medicine Inpatient Medical Services PAGER: [phone] * Endy Mauricio MD - 12/26/2020 3:21 PM EDT Images from the original note were not included. Hospitalist Progress Note 12/26/2020 3:22 PM [phone]: Please page me for patient care issues. [phone]: Please page [facility] night Hospitalist for any issues. Subjective: Admit Date: 12/12/2020 PCP: FRANK PALACIOS MD Room#: [id number] Interval History: Patient seen and examined No [...] recommendation noted Continue current treatment PT recommended [facility] facility SCDs for deep vein thrombosis prophylaxis Protonix for gastrointestinal prophylaxis Patient and her [id number] was informed about all work up and treatment plan Discussed with nursing staff, likely discharge to facility at [place] tomorr Advance Directive: Full Code Discharge planning: DC to [facility] facility when approved Endy Mauricio MD Division of Hospitalist Medicine Inpatient Medical Services PAGER: [phone] * Rah Mann MD - 12/26/2020 1:28 PM EDT [facility] [address] [place] [address] Progress Note Subjective: Patient seen [...] included. Hospitalist Progress Note 12/25/2020 11:32 AM [phone]: Please page me for patient care issues. [phone]: Please page [facility] night Hospitalist for any issues. Subjective: Admit Date: 12/12/2020 PCP: FRANK PALACIOS MD Room#: [id number] Interval History: Feels ok wants to go [...] medical decisions at this time. PT recommended [facility] S[facility] for deep vein thrombosis prophylaxis Protonix for gastrointestinal prophylaxis Patient was informed about all work up and treatment plan Patient's sister Peg [phone] - was informed about all workup and treatment plan Advance Directive: Full Code Discharge planning: DC to [facility] facility when approved Awaiting acceptance--if still refusing [...] Beebe MD - 12/25/2020 10:55 AM EDT [facility] [address] [place] [address] Progress Note Subjective: Patient seen [...] be monitored and followed by the diet thermal technician. * Goldie Livingston, ANGY - 12/24/2020 6:07 PM EST Reported repeat labs to Dr Beebe, orders received * Leland Deng MD - 12/24/2020 1:16 PM EST Images from the original note were not included. Hospitalist Progress Note 12/24/2020 1:16 PM [phone]: Please page me for patient care issues. [phone]: Please page [facility] night Hospitalist for any issues. Subjective: Admit Date: 12/12/2020 PCP: FRANK PALACIOS MD Room#: [id number] Interval History: Feels ok wants to go [...] medical decisions at this time. PT recommended [facility] facility SCDs for deep vein thrombosis prophylaxis Protonix for gastrointestinal prophylaxis Patient was informed about all work up and treatment plan Patient's sister Peg [phone] - was informed about all workup and treatment plan Advance Directive: Full Code Discharge planning: DC to [facility] facility when approved Awaiting acceptance--if still refusing [...] Beebe MD - 12/24/2020 11:39 AM EST [facility] [address] [place] [address] Progress Note Subjective: Patient seen [...] included. Hospitalist Progress Note 12/23/2020 1:21 PM [phone]: Please page me for patient care issues. [phone]: Please page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 70 y.o. female that presented to the Emergency Department as a transfer from [place]. Prior to presentation patient reportedly lost her [...] is recommended. Verbal education provided. Recommendations: Requires PHOTOGRAPHIC PROCESS ATTENDANT Intervention: No D/C Recommendations: No therapy recommended [...] Out 0848 Minutes 8 Gely Shaver M.S. [facility]-PHOTOGRAPHIC PROCESS ATTENDANT 01/14/2021 9:46 AM * Quinten Mauricio MD [...] MSK 1. [facility]. Skin 1. [facility] 11. Family/dispo 1. Patient denies a [...] 70 yo female who was transferred to [facility] after a mechanical fall involving EtOH.She was [...] 4 extremities Follows commands No gait ataxia Nebwlu-cp-nswm normal Bilateral upper and lower extremity motor [...] 103.2* PLT 246 195 BMP: Recent Labs 01/13/21211901/14/21 0422 NA 141 139 K 3.8 3.8 CL [...] likely degenerative in etiology. 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 Patient tolerated procedure well. documented in this encounter Reason for Referral Status Reason Specialty Diagnoses / Procedures Referred By Contact Referred To Contact [facility] Required General Surgery: Trauma/ Critical Care / Trauma Surgery Diagnoses Closed head injury, initial encounter Germaine Woods, LABORER PIE BAKERY - YARN BLEACHING MACHINE OPERATOR [address] [address] [facility] Trauma [address] [facility] [address] [place] [address] Scheduling Instructions [facility] Trauma Surgery- Matt Charlton MD [address], [address] [place] [address] Status Reason Specialty Diagnoses / Procedures Referre d By Contact Referred To Contact [facility]iology Diagnoses Intracranial bleed (HCC) Procedures CT Head WO Contrast Germaine Woods APRN - CNP [address] [place] [address] Status Reason Specialty Diagnoses / Procedures Referre d By Contact Referred To Contact [facility] Diagnoses Bilateral subdural hematomas (HCC) Procedures CT HEAD WO CONTRAST Trae Diaz, DO [address] [place] [address] Discharge Instructions * Discharge Instr - Activity* [...] at most local grocery stores, pharmacies, and [employer]. If you have any questions about your diet or nutrition, call the hospital and ask for the dietitian. General diet * Additional Instructions* Michelle Rodriguez APRN - INTERNET DATABASE SPECIALIST - 10/20/2020 Ortho discharge instructions: -Nonweightbearing to [...] all alcohol. Please complete your power of commonwealth attorney paperwork and living will as these are important documents to have going forward for your [facility]. You have been diagnosed with a concussion. [...] sent through Care Everywhere. * Facial Fracture (Swiss) documented in this encounter* Discharge Instr - [...] at most local grocery stores, pharmacies, and [employer]-stores. If you have any questions about your diet or nutrition, call the hospital and ask for the dietitian. General diet * Discharge Instr - Glenis Martinez RN - 12/13/2020 11:05 AM EST Continuity of Care Form Patient Name: Jazmin Johnson : 1950 Admit date: 12/12/2020 Discharge date: 12/29/20 Code Status Order: Full Code Advance Directives: Advance Care Flowsheet Documentation Date/Time Healthcare Directive Type of Healthcare Directive Copy in Chart Healthcare Agent Appointed Healthcare Agent's Name Healthcare Agent's Phone Number 12/12/20 7732 No, patient does not have an advance directive for healthcare treatment -- -- -- -- -- Admitting Physician: Frankie Hines MD PCP: FRANK PALACIOS MD Discharging Nurse: Glenis Saavedra RN Discharging Hospital Unit/Room#: [id number] Discharging Unit Emergency Contact: Extended Emergency Contact Information Primary Emergency Contact: suni bolden Relation: Other Past Surgical History: Past Surgical History: Procedure Laterality Date COLONOSCOPY ENDOSCOPY, COLON, DIAGNOSTIC Immunization History: There is no immunization history on file for this patient. 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.811 Intracranial bleed ([facility]) I62.9 Intraparenchymal hemorrhage of brain ([facility]) I61.9 Contusion and laceration of right cerebral hemisphere with loss of consciousness ([facility]) S06.319A Multiple closed facial bone fractures ([facility]) S02.92XA Contusion of face S00.83XA Acute alcoholic intoxication without complication ([facility]) F10.920 Closed head injury S09.90XA Recurrent major depressive disorder, in partial remission ([facility]) F33.41 Primary insomnia F51.01 Vitamin B12 deficiency E53.8 Vitamin D deficiency E55.9 SDH (subdural hematoma) ([facility]) S06.5X9A Traumatic subdural hematoma, initial encounter ([facility]) S06.5X9A Subdural hematoma, acute ([facility]) S06.5X9A Altered mental status R41.82 Acute traumatic pain G89.11 COVID-19 virus detected U07.1 Palliative care encounter Z51.5 Goals of care, counseling/discussion Z71.89 Alcohol withdrawal syndrome, with delirium ([facility]) F10.231 Other secondary hypertension I15.8 Sinus bradycardia [...] Independent Dressing Independent Toileting Independent Feeding Independent Track Layer Head Assisted Med Delivery whole Wound Care Documentation [...] that are sent with patient): Francisco Javier TRAVIS SIGNATURE: CASE MANAGEMENT/SOCIAL WORK SECTION Inpatient Status Date: 12/12/2020 Readmission Risk Assessment Score: Readmission Risk Risk of Unplanned Readmission: 19 Discharging to Facility/ Agency: [facility] Name: [facility] Address: [address] [place] [address] Dialysis Facility (if applicable) Name: Address: Dialysis Schedule: Phone: Fax: Residential Green Building Designer/Sociology Professor signature: ICIAN SECTION Prognosis: Fair Condition at Discharge: Stable Rehab Potential (if transferring to Rehab): Fair Recommended Labs or Other Treatments After Discharge: Complete blood count, BMP panel in 3 days Physician Certification: I certify the above information and transfer of Jazmin Johnson is necessaryfor the continuing treatment of the diagnosis listed and that she requires [facility] Facilityfor less 30 days. Update Admission H&P: [...] Outpatient mental health treatment to address depression/grief. [facility] [place] Suicide Prevention Lifeline [phone] ([phone]) [facility] Behavioral Health Outpatient Clinics- for outpatient counseling and psychiatric medication management [phone] Offices in [facility], and [facility] The Addiction [...] involvement and random drug screenings are mandatory. [facility] [address] [facility], 3rd [place] [address], [address] [place] [address], [address] [place] [address] [facility] [address] , [address] [place] [address] documented in this encounter* Instructions* Trae Diaz, - 01/14/2021 Discharge Instructions for Trauma Refrain [...] the [facility] at [phone]. This center offers additional therapy, support groups, education and other resources at no cost. The center is located at [address] [place] [address]. You can also visit www.[facility].org for more information. What to do after you leave the hospital: General questions or concerns may be called to the trauma nurse line at [phone] and please leave a message. Trauma is a life-threatening condition. Your doctor will want to closely monitor you. Be sure to goto all of your appointments. Neurosurgery Instructions: Please obtain CT head prior to office visit with Dr. Byrnes * Attachments The following attachments cannot be sent through Care Everywhere. * Alcohol Intoxication: Acute (Swiss) * Head Injury: Closed: General Info (Swiss) * Subdural Hematoma (Swiss) * Traumatic Brain Injury: Long-term Care (Swiss) documented in this encounter Hospital Course * [...] She was planned to be discharged to [facility] care facility for further treatment. On the [...] DISCHARGE MEDICATIONS: Jazmin Johnson Home Medication Instructions EBONY:[id number] Printed on:12/28/20 0122 Medication Information docusate (COLACE, DULCOLAX) 100 MG [...] mouth daily vitamin D (ERGOCALCIFEROL) 1.25 MG (42416 UT) CAPS capsule Take 1 capsule by mouth once a week DIET: DIET GENERAL; ACTIVITY: No restriction. up with assist COMPLEXITY OF FOLLOW UP: [] Moderate Complexity: follow up within 7-14 calendar days (46138) [] Severe Complexity: follow up within 7 calendar days (01176) FOLLOW UP TESTING, PENDING RESULTS OR REFERRALS AT TRANSITIONAL CARE VISIT: [] Yes [] No PENDING STUDIES: No DISPOSITION: Inpatient Psych FACILITY/HOME CARE AGENCY NAME: Follow up with Frank Palacios MD [address] [facility] [address] In 5 days [facility] POS [address] [facility] [id number] Call in 2 weeks for memory (re)testing Jesus Wadsworth MD [address] [facility] [address] Schedule an appointment as soon as possible [...] DEHYDRATION SEIZURES EKG Seizure Seizure Seizure Seizure [facility] WORK LABWORK [facility] Reason for Visit Acute alteration in mental status Acute UTI Abnormal transaminases Lactic acidosis Acute dehydration Acute respiratory failure Chief Complaint [facility] LAB[facility] LABWORK [facility] Health Concerns Infection Onset Date Last [...] section and content) DATE CREATED AUTHOR [facility] DATE CREATED AUTHOR AUTHOR'S ORGANIZ ATION 02/15/2021 [facility] DATE CREATED AUTHOR AUTHOR'S ORGANIZ ATION 03/13/2021 [facility] DATE CREATED AUTHOR AUTHOR'S ORGANIZ ATION 03/18/2021 [facility] DATE CREATED AUTHOR AUTHOR'S ORGANIZ ATION 05/05/2021 [facility] DATE CREATED AUTHOR AUTHOR'S ORGANIZ ATION 11/19/2021 [facility] DATE CREATED AUTHOR AUTHOR'S ORGANIZ ATION 12/20/2022 [facility] DATE CREATED AUTHOR AUTHOR'S ORGANIZ ATION 01/11/2023 [facility] DATE CREATED AUTHOR AUTHOR'S ORGANIZ ATION 03/22/2025 [facility] Reason for Visit (unrecogniz ed section and content) Reason For Visit Description New - 1st visit with practice Preliminary reason f or visit data, not yet signed by the author as of left foot pain 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 Pt was noted by staff to [...] or prosecute any alcohol or drug abuse patient.[facility] the event this information is protected by the Federal Confidentiality of Alcohol and Drug Abuse Patient Records regulations: The Federal rules restrict any use of the information to criminally investigate or prosecute any alcohol or drug abuse patient.[facility] the event this information is protected by the Federal Confidentiality of Alcohol and Drug Abuse Patient Records regulations: The Federal rules restrict any use of the information to criminally investigate or prosecute any alcohol or drug abuse patient.[facility] the event this information is protected by the Federal Confidentiality of Alcohol and Drug Abuse Patient Records regulations: The Federal rules restrict any use of the information to criminally investigate or prosecute any alcohol or drug abuse patient.[facility] Ordered Prescriptions (unrec ognized section and [...] Watt RN) 0802 (Given - Provider: Antoinette Chavez, ANGY) folic acid (FOLVITE) tablet 1 mg 1 mg, Oral, Daily, First dose on Sat03/15/21 at 1300 1416 (Given - Provider: Beatriz Hudson RN) 0809 (Given - Provider: Cornelia Watt RN) 0801 (Given - Provider: Antoinette Chavez, ANGY) levothyroxine (SYNTHROID, LEVOTHROID) tablet 50 mcg 50 [...] Jones RN) 0809 (Given - Provider: Cornelia Watt, ANGY)1606 (Given - Provider: Cornelia Watt RN)195 (Given - Provider: Pratima Hays RN)2100 (Canceled [...] at 1230 1254 (Given - Provider: Cornelia Watt RN)1950 (Given - Provider: Pratima Hays RN) 0628 (Given - Provider: Pratima Hays RN) lidocaine (LIDODERM) 1 patch 1 patch, Transdermal, Administer over 12 Hours, Daily PRN, mild pain, Starting on Sat03/14/21 at 1304, For 1 dose, Apply to [...] Jones, ANGY) 1951 (Given - Provider: Pratima Hays RN) Linked Groups Order Group 1: Insert peripheral [...] Care Teams (unrecognized sec tion and content) Environmental Service Aide Relationship Specialty Start Date End Date Khai Palacios Chi [address] [facility] [address] [place], [place] [id number] PCP - General Gerontology 06/08/20 Kong Giordano MD [address] [place] [address] PRORATION CLERK 06/15/20 Silvana Somers MD [address] [facility] [address] [place] [address] Gynecology 06/15/20 Team Status: Active Member Role Status Dates Dr. Khai Palacios MD Family Provider Active Dr. Khai Palacios MD Primary Care Provider Active Team Status: Inactive Member Role Status Dates Dr. Khai Palacios MD Primary Care Provider Active Dr. Khanh Arias DO Attending Provider, Emergency P paige Active Team Status: Active Member Role Status Dates Dr. Khai Palacios MD Primary Care Provider, Attending Provider Active Team Status: Active Member Role Status Dates Dr. Khai Palacios MD Primary Care Provider Active Dr. George Han MD Emergency Provider Active Dr. Nidia Pham DO Admit Provider, Attending Provide r Active Team Status: Active Member Role Status Dates Dr. Khai Palacios MD Primary Care Provider Active Dr. George Han MD Emergency Provider Active Dr. Nidia Pham DO Admit Provider, Attending Provide r, Other [...] Martinez MD Other Provider Active Evie Bazan INTERNET DATABASE SPECIALIST, INTERNET DATABASE SPECIALIST-C Other Provider Active Dr. Danya Alonzo MD Other Provider Active Dr. Oscar Topete MD Other Provider Active Dr. Rd Kincaid MD Other Provider Active Dr. Jessica Garcia MD Other Provider Active Dr. Rk Nelson MD Other Provider Active Dr. Justino Kathleen MD Other Provider Active Dr. Osvaldo Lee MD Other Provider Active Dr. Bill Dubon DO Other Provider Active Su Bautista INTERNET DATABASE SPECIALIST, INTERNET DATABASE SPECIALIST-C Other Provider Active Team Status: Active Member [...] Martinez MD Other Provider Active Evie Bazan INTERNET DATABASE SPECIALIST, INTERNET DATABASE SPECIALIST-C Other Provider Active Dr. Danya Alonzo MD Other Provider Active Dr. Oscar Topete MD Other Provider Active Dr. Rd Kincaid MD Other Provider Active Dr. Jessica Garcia MD Other Provider Active Dr. Rk Nelson MD Other Provider Active Dr. Justino Kathleen MD Other Provider Active Dr. Osvaldo Lee MD Other Provider Active Dr. Bill Dubon , DO Other Provider Active Su Bautista INTERNET DATABASE SPECIALIST, INTERNET DATABASE SPECIALIST-C Attending Provider, Other Prov ider Active Team [...] Martinez MD Other Provider Active Evie Bazan INTERNET DATABASE SPECIALIST, INTERNET DATABASE SPECIALIST-C Other Provider Active Dr. Danya Alonzo MD Attending Provider Active Dr. Oscar Topete MD Other Provider Active Dr. Rd Kincaid MD Other Provider Active Dr. Jessica Garcia MD Other Provider Active Dr. Rk Nelson MD Other Provider Active Dr. Justino Kathleen MD Other Provider Active Dr. Osvaldo Lee MD Other Provider Active Dr. Bill Dubon , DO Other Provider Active Su Bautista INTERNET DATABASE SPECIALIST, INTERNET DATABASE SPECIALIST-C Other Provider Active Environmental Service Aide Relationship Specialty Start Date End Date Khai Palacios Chi [address] [facility] [address] [place] [address] PCP - General Gerontology 06/08/20 Kong Giordano MD [address] [place] [address] PRORATION CLERK 06/15/20 Silvana Somers MD [address] [facility] [address] [place] [address] Gynecology 06/15/20 Team Status: Active Member Role [...] MD Other Provider Active Evie Bazan NP, INTERNET DATABASE SPECIALIST-C Other Provider Active Dr. Danya Alonzo MD [...] Dubon DO Other Provider Active Su Bautista INTERNET DATABASE SPECIALIST, INTERNET DATABASE SPECIALIST-C Other Provider Active Team Status: Inactive Member [...] MD Other Provider Active Evie Bazan NP, INTERNET DATABASE SPECIALIST-C Other Provider Active Dr. Danya Alonzo MD [...] Dubon DO Other Provider Active Su Bautista NP, INTERNET DATABASE SPECIALIST-C Other Provider Active Team Status: Active Member Role Status Dates Dr. Khai Palacios MD Primary Care Provider, Referring Provider Active Dr. George Han MD Emergency Provider Active Dr. Nidia Pham , DO Admit Provider, Other Provider Ac tive Dr. Paco Thompson MD Other Provider Active Dr. Roberth Aldana DO Other Provider Active Dr. Ankit Izquierdo MD Other Provider Active Dr. Julian Martinez MD Other Provider Active Evie Bazan INTERNET DATABASE SPECIALIST, INTERNET DATABASE SPECIALIST-C Other Provider Active Dr. Danya Alonzo MD Other Provider Active Dr. Oscar Topete MD Other Provider Active Dr. Rd Kincaid MD Other Provider Active Dr. Jessica Garcia MD Other Provider Active Dr. Rk Nelson MD Other Provider Active Dr. Justino Kathleen MD Other Provider Active Dr. Osvaldo Lee MD Other Provider Active Dr. Bill Dubon DO Other Provider Active Su Michele INTERNET DATABASE SPECIALIST, INTERNET DATABASE SPECIALIST-C Attending Provider, Other Prov ider Active Team [...] Dubon DO Other Provider Active Su Bautista INTERNET DATABASE SPECIALIST, INTERNET DATABASE SPECIALIST-C Other Provider Active Dr. Paco Thompson MD Other Provider Active Dr. Roberth Aldana DO Other Provider Active Dr. Ankit Izquierdo MD Other Provider Active Dr. Julian Martinez MD Other Provider Active Evie Bazan INTERNET DATABASE SPECIALIST, INTERNET DATABASE SPECIALIST-C Other Provider Active Team Status: Active Member Role Status Dates Dr. Khai Palacios MD Primary Care Provider Active Dr. Araceli PHAM MD Attending Provider Active Team Status: Inactive Member Role Status Dates Dr. Khia Palacios MD Primary Care Provider Active Miguel [...] BE BASED ON THE PRIMARY CLINICAL RECORDS. [facility] [employer] [facility]. provides no warranty or guarantee of the accuracy or completeness of information in this document.
[2025-05-05 09:16] LABS: T4 Total, Thyroxin 6.3 ug/dL (4.8-13.9); Vitamin D,25 Hydroxy 21.4 ng/mL (30-100)
== END ==
LOC: OLS.BROOKB 05:00
PROVIDERS: PCP Family Medicine Geriatric Medicine; Visit Provider Family Medicine
DX: E55.9 Vitamin D deficiency, unspecified (principal); E03.9 Hypothyroidism, unspecified
CPT/HCPCS: 36415; 82306; 84436; 84443

== ENCOUNTER → 2025-08-19 05:00 | Outpatient (REF) | payer MEDICARE, SELFPAY ==
--- OUTSIDE RECORDS SUMMARY | 2025-08-19 04:49 | XMS RPT_ITS | CCD ---
Author Organization [facility] Care Team Providers Care Automatic I Threading Machine Feeder Name Role Phone JACK NATHAN Unavailable Unavailable IM[facility] Unavailable Unavailable KONG PATEL Unavailable Unavailable [facility] Unavailable Unavailable [facility] Unavailable Unavailable Nohemi MCCANN, Joe Jacob Unavailable Khai Palacios Chi Primary Care Provider [phone] Unavailable Primary Care Provider UnavailFrank Mir Primary Care Provider Frank Palacios Primary Care Provider FRANK PALACIOS Primary Care Unavailable SHANDRA COLE Admitting Unavail able FITZ BYRNES Consulting Unavailable SHANDRA COLE Attending Unavail able Philip LUCIANO, KhaiFroy Primary Care Provider No, Physician Primary Care Provider Unavailabl e SERVICE, MEDONE TEACHING Consulting Unavail able ARIES LANDON Attending Unavailable GANESH LUNA Admitting Unavail able SYSTEM, PROVIDER NOT IN Referring Unavaila ble CAROL HONG Consulting Unavailabl e MURIEL GOODRICH Consulting UnaVON Staley Admitting Unavailable TIGRE MARLEY Referring Unavailable CONSULT, IP BURN Consulting Unavailable JOE VILLAREAL Attending Unavailable REQUEST, IP GROWTH HACKER SERVICE Consul ting Unavailable CONSULT, IP DERMATOLOGY Consulting Unavaila ble CONSULT, IP INFECTIOUS DISEASE Consulting U navailable REQUEST, IP ACTIVITY THERAPY SERVICE Consulting Unavailable CONSULT, IP NEUROLOGY Consulting Unavailabl e REQUEST, IP PHYSICAL THERAPY SERVICE Consulting Unavailable REQUEST, IP OCCUPATIONAL THERAPY SERVICE Consult ing Unavailable PROVIDER, UNKNOWN Attending Unavailable PROVIDER, UNKNOWN Admitting Unavailable Unavailable Primary Care Provider UnavailDr. Khai Mir Chi Primary Care Provider Dr. Khanh Arias Emergency Provider Dr. Nichelle Robert Admit Provider Dr. Bud Jackson Attending Provider Dr. Bud Jackson Other Provider Khai Palacios Chi Primary Care Provider Kong Giordano MD Unavailable Silvana Somers MD Unavailable Dr. Khai Palacios Chi Primary Care Provider Dr. George Han Emergency Provider Dr. Nidia Pham Admit Provider Dr. Nidia Pham Attending Provider Dr. Nidia Pham Other Provider Dr. Paco Thompson Other Provider Dr. Roberth Aldana Attending Provider 1([facility])[phone] Roberth Aldana Other Provider Dr. Ankit Izquierdo Ann Other Provider Dr. Julian Martinez Other Provider Unavailab landon Bazan COIL BINDER, COIL BINDER-C Evie Other Provider Dr. Danya Alonzo Other Provider 1([facility])[phone] Oscar Topete Other Provider 1([facility])[phone] Kincaid Other Provider Dr. Jessica Garcia Other Provider Dr. Rk Nelson Other Provider Dr. Justino Kathleen Other Provider Unavailable Dr. Osvaldo Lee Other Provider Dr. Bill Dubon Other Provider Michele COIL BINDER, COIL BINDER-C Su Other Provider 1([facility])[phone] Michele COIL BINDER, COIL BINDER-C Su Attending Provider Dr. Danya Alonzo Attending Provider 1([facility])[phone] JENNYFER MERCADO Admitting Unavailable MAHAJANAP WHEELER-KIT Consulting Unavaila OSCAR Ruelas Attending Unavail able DANYA ALONZO Referring Unavailable PHILIP, KHAI CHI Primary Care Unavailable MALLAT, ALI Admitting Unavailable AL-ALI, FIRAS Consulting Unavailable MUAKJEREMY HECK Attending Unavailabl e PHILIP KHAI CHI Primary Care Unavailable Dr. Khai Palacios Chi Primary Care Provider 1([facility])[phone] Dr. George Han Emergency Provider 1([facility])[phone] Nidia Pham Admit Provider Dr. Nidia Pham Attending Provider 1([facility])[phone] Nidia Pham Other Provider Dr. Bj Newman Attending Provider 1([facility])[phone] Nidia Pham Referring Provider 1([facility])[phone] Paco Thompson Other Provider Dr. Roberth Aldana Attending Provider 1([facility])[phone] Roberth Aldana Other Provider Dr. Ankit Izquierdo Other Provider 1([facility])[phone] Julian Martinez Other Provider Unavailab landon Bazan COIL BINDER, COIL BINDER-C Evie Other Provider Dr. Danya Alonzo Referring Provider 1([facility])[phone] Dr. Danya Alonzo Other Provider 1([facility])[phone] Oscar Topete Other Provider 1([facility])[phone] Kincaid Other Provider Dr. Jessica Garcia Other Provider Dr. Rk Nelson Other Provider Dr. Justino Kathleen Other Provider Unavailable Dr. Osvaldo Lee Other Provider 1([facility])[phone] Bill Dubon Other Provider 1([facility])[phone] Michele COIL BINDER, COIL BINDER-C Su Other Provider 1([facility])[phone] Dr. Danya Alonzo Attending Provider 1([facility])[phone] Dr. Khai Palacios Chi Referring Provider 1([facility])[phone] Michele COIL BINDER, COIL BINDERCatarinaC Su Attending Provider [phone] NABIL LUCIANO, KENZIE Fuentes Primary Care Physician Dr. Khai Palacios MD, Chi Primary Care Provider [phone] Eulalio LUCIANO, Dr. Bee Attending Provider Unavail Dr. Faina Caldwell MD Referring Provider Unavail able Faina Berman Attending Unavailable Khai Palacios Chi Primary Care Unavailable Faina Berman Attending Unavailable Khai Palacios Chi Primary Care Unavailable Faina Berman Referring Unavailable Khai Palacios Chi Primary Care Unavailable [...] First dose on Sat12/13/20 at 1145 Aspirin (11 sources) Platelet Aggregation Inhibitor, Nonsteroidal Anti-inflammatory Drug Start: 02-15-2021 aspirin EC tablet 81 mg Start: 04-18-2015 End: 04-19-2015 take 1 tablet by mouth once daily Aspirin 81 MG Tab.Chew Discontinued 81 mg PO DAILY@0800 April 18, 2015 12:00am April [...] take one tablet once daily ATORVASTATIN CALCIUM [id number] Joe Song PA-C Comment on above: atorvastatin 80 mg t ablet bacitracin zinc 0.5 unt/mg topical ointment (3 sources) Start: 10-23-2020 End: 11-03-2020 bacitracin 500 UNIT/GM ointment Apply topically 2 times daily to abrasion below the clavicle area. 1 Tube 0 10/24/2020 11/03/2020 Active Start: 10-19-2020 apply 1 dose topical ly three times daily Topical, 3 TIMES DAILY, First dose on We d 10/19/20 at 2215 Apply to abrasions. To [...] Active Start: 11-21-[address] [facility] every week vitamin D (ERGOCALCIFEROL) 1.25 MG (82076 UT) CAPS capsule Take 1 capsule by [...] tablet 2 03/16/2021 Active Multiple Vitamins-Minerals (THERAPEUTIC MULTIVITAMIN-EDITOR PRODUCER ALS) tablet (1 source) take 1 tablet by mouth once daily Multiple Vitamins-Minerals (THERAPEUTIC MULTIVITAMIN-MINERALS) tablet Take 1 tablet by mouth daily 0 Active Multivitamin preparation (2 sources) Start: 02-06-2022 take 1 tablet by mouth once daily Multivitamin Active 1 TABLET PO DAILY February 06, 2022 3:54pm Start: 02-06-2022 take 1 tablet by chetna once daily Multivitamin Active 1 TABLET PO [...] tabl et 64.8 mg Start: 10-21-2020 End: 01-09-2021 PHENobarbital (LUMINAL) tabl et 32.4 mg Start: 10-19-2020 End: 10-20-2020 PHENobarbital (LUMINAL) inje ction 30 mg polyethylene glycol [id number] mg powder for oral solution (4 sources) [...] 50 mg, Oral, NIGHTLY, First dose on Sat02/15/21 at 2100 Start: 12-15-2020 QUEtiapine (SE ROQUEL) tablet 50 mg Start: 11-16-2020 End: 12-27-2020 take 100 mg by mouth once daily 100 mg, Oral, NIGHTLY, First dose on Sat12/13/20 at 2100 sennosides, retirement 8.6 mg oral tablet (1 source) Start: [...] . 30 tablet 2 03/16/2021 Active Start: 02-17-2021 traZODone (RAJ YREL) tablet 100 mg Start: 02-15-2021 End: 02-15-2021 traZODone (DESYREL) tablet 5 0 mg Start: 10-22-2020 take 100 mg by mouth once angel y 100 mg, Oral, NIGHTLY, First dose on 10/22/20 at 2100 Start: 05-14-2019 End: 12-27-2020 TRAZODONE HCL 100 MG TABS ta ke one to one and a half at bedtime TRAZODONE HCL [id number] Joe Song PA-C Start: 12-26-2014 End: 02-06-2022 take 2 tablets by mouth once daily traZODone (DESYREL) 100 MG tablet Take 200 mg by mouth nightly . 0 02/22/2021 03/17/2021 Discontinued (Stop Taking at Discharge) Start: 12-26-2014 End: 02-06-2022 take 200 mg [...] 500 MG TABS take as needed ACETAMINOPHEN [id number] Joe Song PA-C Comment on above: Take [address] [facility] every 8 hours as needed [...] one capsule once daily DULOXETINE HCL CPEP [id number] Joe Song PA-C Start: 12-26-2014 End: 12-19-2020 [...] 40 mg, Subcutaneous, DAILY, First dose on 02/15/21 at 1905 Start: 10-23-2020 enoxaparin (LO VENOX) injection 30 mg 1.7 ml EPINEPHrine 0.01 mg/ml / lidocaine hydrochloride 20 mg/ml cartridge (1 source) Antiarrhythmic, alpha-Adrenergic Agonist, beta-Adrenergic Agonist, Catecholamine, Amide Local Anesthetic Start: 01-13-2021 End: 01-13-2021 lidocaine-EPINEPHrine 2 percent-1:[id number] injection folic acid 1 mg oral tablet [...] over 30 Minutes, DAILY, First dose on Rocio 10/20/20 at 0900 iopamidol (ISOVUE-370) 76 % injection [...] take one tablet once daily LEVOTHYROXINE SODIUM [id number] Joe Song PA-C levothyroxine so dium (SYNTHROID [...] 25 mg, Oral, Daily, First dose on 03/11/21 [...] (2 times per day), First dose on Sat01/14/21 at 0900 Start: 01-14-2021 take 10 mL [...] te Episodic/Chronic Acute and unspecified renal failure (9 sources) Injury of kidney; Translations: [Acute kidney [...] with intoxication, uncomplicated] 12-14-2020 Episodic Anxiety disorders (9 sources) Anxiety; Translations: [Anxiety disorder, unspecified] 02-05-2022 [...] 0 07-21-2020 Chronic Coagulation and hemorrhagic disorders (13 sources) Thrombocytopenic disorder; Translations: [Thrombocytopenia, unspecified] Onset: 3 12-16-2022 Chronic Diseases of white blood cells (9 sources) Leukocytosis; Translations: [Elevated white blood cell count, unspecified] 12-16-2022 Chronic Disorders of lipid metabolism (10 sources) Hyperlipidemia; Translations: [Hyperlipidemia, unspecified] Onset: 5 02-05-2022 Chronic E Codes: Fall (11 sources) Fall in home; Translations: [Unspecified fall, initial encounter] Onset: 1 Resolved: 1 01-14-2021 Episodic Epilepsy; convulsions (2 sources) Status epilepticus; Translations: [Epilepsy, unspecified, not intractable, with status epilepticus] Onset: 3 12-18-2022 Chronic Epilepsy; convulsions (20 sources) Post-ictal state; Translations: [Unspecified convulsions] Onset: 3 12-16-2022 Episodic External cause codes: Fall (4 sources) Fall; Translations: [Fall in home] Onset: 1 Resolved: 1 12-09-2020 Fluid and electrolyte disorders (20 sources) Hyponatremia; Translations: [Hypokalemia] Onset: 1 12-14-2020 Episodic Gastrointestinal hemorrhage (9 sources) Gastrointestinal hemorrhage; Translations: [Gastrointestinal hemorrhage, unspecified] 02-14-2022 Episodic Hypertension with complications and secondary hypertension (3 sources) Secondary hypertension; Translations: [Other secondary hypertension] 11-09-2020 Chronic Malaise and fatigue (1 source) Decline in functional status; Translations: [Other malaise] 11-14-2020 Episodic Miscellaneous mental health disorders (5 sources) Primary insomnia; Translations: [Primary insomnia] Onset: 1 10-23-2020 Chronic Mood disorders (15 sources) Recurrent major depression in partial remission; Translations: [Major depressive disorder, recurrent, in partial remission] Onset: 1 10-23-2020 Chronic Nutritional deficiencies (6 sources) Vitamin D deficiency; Translations: [Vitamin D deficiency, unspecified] Onset: 1 10-23-2020 Chronic Nutritional deficiencies (6 sources) Cobalamin deficiency; Translations: [Deficiency of other specified B group vitamins] Onset: 1 10-23-2020 Episodic Open wounds of head; neck; and trunk (8 sources) Laceration of forehead; Translations: [Facial laceration ] 09-22-2022 Episodic Other female genital disorders (1 source) Lesion of vulva; Translations: [Vulvar lesion] Episodic Other gastrointestinal disorders (1 source) Occult blood in stools; Translations: [Fecal occult blood test positive] Episodic Other hematologic conditions (6 sources) Erythrocytosis; Translations: [Secondary polycythemia] 12-16-2022 Episodic Other hematologic conditions (3 sources) Secondary polycythemia; Translations: [Polycythemia, secondary] 12-16-2022 Episodic Other injuries and conditions due to external causes (5 sources) Closed injury of head; Translations: [Unspecified injury of head, initial encounter] 10-22-2020 Episodic Other liver diseases (6 sources) Enzyme level - finding; Translations: [Abnormal levels of other serum enzymes] 12-16-2022 Episodic Other liver diseases (4 sources) Abnormal levels of other serum enzymes; Translations: [Nonspecific elevation of levels of transaminase or lactic acid dehydrogenase [LDH]] 12-16-2022 Episodic Other nervous system disorders (15 sources) Disorder of brain; Translations: [Encephalopathy, unspecified] [...] awareness] 11-14-2020 Episodic Other nervous system disorders (9 sources) Toxic metabolic encephalopathy; Translations: [Toxic metabolic encephalopathy] 12-16-2022 Episodic Other nutritional; endocrine; and metabolic disorders (4 sources) Hypomagnesemia; Translations: [Hypomagnesemia] Onset: 1 12-14-2020 Chronic Other nutritional; endocrine; and metabolic disorders (6 sources) Hyperbilirubinemia; Translations: [Other disorders of bilirubin metabolism] 12-16-2022 Chronic Other nutritional; endocrine; and metabolic disorders (6 sources) Hypercalcemia; Translations: [Hypercalcemia] 12-16-2022 Chronic Other [...] Onset: 1 12-14-2020 Chronic Other skin disorders (9 sources) Denuded skin; Translations: [Other skin changes] 01-23-2021 Episodic Other skin disorders (9 sources) Bullous dermatosis; Translations: [Rash and other nonspecific skin eruption] 01-23-2021 Episodic Poisoning by other medications and drugs (11 sources) Poisoning by unspecified drugs, medicaments and biological substances, accidental (unintentional), initial encounter; Translations: [Acute drug overdose] Episodic Prolapse of female genital organs (1 source) Midline cystocele; Translations: [Cystocele, midline] Chronic Residual codes; unclassified (1 source) Menopause present; Translations: [Menopause] Chronic Residual codes; unclassified (12 sources) Altered mental status; Translations: [Altered mental status, unspecified] 11-09-2020 Episodic Residual codes; unclassified (1 source) At risk of delirium; Translations: [Other specified personal risk factors, not elsewhere classified] Onset: 1 12-15-2020 Episodic Residual codes; unclassified (8 sources) Left against medical advice; Translations: [Procedure [...] Translations: [On mechanically assisted ventilation (HCC)] Onset: Chronic Respiratory failure; insufficiency; arrest (adult) (11 sources) Acute respiratory failure; Translations: [Acute respiratory failure, unspecified whether with hypoxia or hypercapnia] Onset: 3 12-16-2022 Episodic Septicemia (except in labor) (9 sources) Sepsis; Translations: [Sepsis, unspecified organism] 01-23-2021 Episodic Skull and face fractures (5 sources) Multiple face fractures; Translations: [Unspecified fracture of facial bones, initial encounter for closed fracture] 10-20-2020 Episodic Substance-related disorders (10 sources) Tobacco dependence syndrome; Translations: [Nicotine dependence, unspecified, uncomplicated] 12-16-2022 Chronic Suicide and intentional self-inflicted injury (9 sources) Suicidal thoughts; Translations: [Suicidal ideations] 02-14-2022 Episodic Superficial injury; contusion (9 sources) Contusion of foot; Translations: [Contusion of face] Onset: 9 05-14-2019 Episodic Thyroid disorders (12 sources) Hypothyroidism; Translations: [Hypothyroidism, unspecified] Onset: 3 [...] [Acute hyperactive alcohol withdrawal delirium (HCC)] Onset: Viral infection (3 sources) Other specified viral [...] uncomplicated Onset: 09-04-2017 Unclassified (1 source) Problem Urinary tract infections (11 sources) Acute urinary tract infection; Translations: [Urinary tract infection, site not specified] Onset: 12-25-2024 12-16-2022 Episodic Results Test Name Value Interpretation Reference Range Facil ity TSH DL <= 0.005 mIU/L QnOrde red By: Faina Tsai on 05-05-2025 TSH Qn 7.640 uIU/mL High 0.300-4.200 [facility] ThyroxineOrdered By: Faina lees on 05-05-2025 T4 [Mass/Vol] 6.3 ug/dL 4.8-13.9 [facility] Absolute lymphocyte countOrd ered By: Faina Tsai on 03-22-2025 Lymphocytes Auto (Unsp spec) [#/Vol] 2.41 10*3/uL 0.83-4.51 [facility] Absolute neutrophil countOrd ered By: Faina Tsai on 03-22-2025 Neutrophils (Bld) [#/Vol] 3.8 10*3/uL 2.0-7.7 [facility] Anion gap in Serum or Plasma Ordered By: Faina Tsai on 03-22-2025 Anion gap [Moles/Vol] 10 mmol/L 5-15 [facility] Automated lymphocyte count a s percentage of total leukocytesOrdered By: Faina Tsai on 03-22-2025 Lymphocytes/100 WBC Auto (Unsp spec) 33.8 % 19-41 [facility] BUN/creatinine ratioOrdered By: Faina Tsai on 03-22-2025 Urea nitrogen/Creatinine [Mass ratio] 24.8 mg/mg High 10-20 [facility] Basophil percentageOrdered B y: Faina Tsai on 03-22-2025 Basophils/100 WBC (Bld) 0.7 % 0-1 [facility] Bilirubin, totalOrdered By: Faina Tsai on 03-22-2025 Bilirubin [Mass/Vol] 0.24 mg/dL 0.00-1.30 [facility] Carbon dioxide, total [Moles /volume] in Central venous bloodOrdered By: Faina Tsai on 03-22-2025 CO2 [Moles/Vol] 21.9 mmol/L 21.0-32.0 [facility] Chloride assayOrdered By: Juan Tsai on 03-22-2025 Chloride [Moles/Vol] 109 mmol/L High 98-108 [facility] Eosinophil percentageOrdered By: Faina Tsai on 03-22-2025 Eosinophils/100 WBC (Bld) 2.2 % 0-5 [facility] Erythrocyte distribution wid th ratioOrdered By: Faina Tsai on 03-22-2025 Erythrocyte distribution width (RBC) [Ratio] 15.2 % High 11.6-14.6 [facility] Erythrocyte distribution wid th standard deviationOrdered By: Faina Tsai on 03-22-2025 Erythrocyte distribution width (RBC) [Ratio] 50.0 fl High 35.1-43.9 [facility] Glomerular filtration rate ( GFR) estimation/1.73 sq m using serum, plasma, or whole bOrdered By: Faina Tsai on 03-22-2025 GFR/1.73 sq M.predicted among non-blacks MDRD (S/P/Bld) [Vol rate/Area] 82 mL/min/{1.73_m2} >60 [facility] Comment on above: mL/min/1.73m2 CKD-EP I Creatinine Equation (2020) Hematocrit Auto (Bld) [Volum e fraction]Ordered By: Faina Tsai on 03-22-2025 Hematocrit (Bld) [Volume fraction] 40.4 % 37-47 [facility] Hemoglobin A1c percentageOrd ered By: Faina Tsai on 03-22-2025 HbA1c (Bld) [Mass fraction] 5.7 % <5.7 [facility] Comment on above: Normal < 5.7 % Predi abetic 5.7 - 6.4 % Diabetic >or= 6.5 % Please note range changes. Hemoglobin measurementOrdere d By: Faina Tsai on 03-22-2025 Hemoglobin (Bld) [Mass/Vol] 13.1 g/dL 12.0-15.0 [facility] Immature granulocytes/100 WB C Auto (Bld)Ordered By: Faina Tsai on 03-22-2025 Immature granulocytes/100 WBC (Bld) 0.300 % 0.0-0.9 [facility] Comment on above: IG% - Immature Granu locytes (promyelocytes, myelocytes and metamyelocytes) > 1% indicates that a LEFT SHIFT is Present. Laboratory - Chemistry and C hemistry - challengeOrdered By: Faina Tsai on 03-22-2025 AST [Catalytic activity/Vol] 14 U/L <32 [facility] MCV (mean corpuscular volume ) determinationOrdered By: Faina Tsai on 03-22-2025 MCV (RBC) [Entitic vol] 89.0 fL 81-99 [facility] Mean corpuscular hemoglobin (MCH) determinationOrdered By: Faina Tsai on 03-22-2025 MCH (RBC) [Entitic mass] 28.9 pg 27.0-32.0 [facility] Mean corpuscular hemoglobin concentration (MCHC) determinationOrdered By: Faina Tsai on 03-22-2025 MCHC (RBC) [Mass/Vol] 32.4 g/dL 32-36 [facility] Mean platelet volume determi nationOrdered By: Faina Tsai on 03-22-2025 Platelet mean volume (Bld) [Entitic vol] 11.6 fL 6.2-12.0 [facility] Monocyte percentageOrdered B y: Faina Tsai on 03-22-2025 Monocytes/100 WBC (Bld) 10.4 % High 0-10 [facility] Neutrophil percentageOrdered By: Faina Tsai on 03-22-2025 Neutrophils/100 WBC (Bld) 52.6 % 47-70 [facility] Nucleated red blood cell per centageOrdered By: Faina Tsai on 03-22-2025 Nucleated RBC/100 WBC (Bld) [Ratio] 0 % 0-5 [facility] Platelet countOrdered By: Juan Tsai on 03-22-2025 Platelets (Bld) [#/Vol] 174 10*3/uL 150-450 [facility] Potassium measurement (mass/ volume)Ordered By: Faina Tsai on 03-22-2025 Potassium (Unsp spec) [Mass/Vol] 4.1 mmol/L 3.3-5.1 [facility] RBC Auto (Bld) [#/Vol]Ordere d By: Faina Tsai on 03-22-2025 RBC (Bld) [#/Vol] 4.54 10*6/uL 4.2-5.4 [facility] Serum creatinine measurement (mass/volume)Ordered By: Faina Tsai on 03-22-2025 Creatinine [Mass/Vol] 0.77 mg/dL 0.70-1.20 [facility] Serum globulin measurementOr dered By: Faina Tsai on 03-22-2025 Globulin (S) [Mass/Vol] 3.2 g/dL 2.2-4.2 [facility] Serum glucose measurement (m ass/volume)Ordered By: Faina Tsai on 03-22-2025 Glucose [Mass/Vol] 83 mg/dL 70-99 [facility] Serum or plasma alanine forbes otransferase (ALT) measurementOrdered By: Faina Tsai on 03-22-2025 ALT [Catalytic activity/Vol] U/L <35 [facility] Serum or plasma albumin cony urement (mass/volume)Ordered By: Faina Tsai on 03-22-2025 Albumin [Mass/Vol] 3.5 g/dL 3.4-4.8 [facility] Serum or plasma albumin/glob ulin mass ratioOrdered By: Faina Tsai on 03-22-2025 Albumin/Globulin [Mass ratio] 1.1 {ratio} 0.9-2.4 [facility] Serum or plasma alkaline eduardo sphatase measurementOrdered By: Faina Tsai on 03-22-2025 ALP [Catalytic activity/Vol] 82 U/L 35-104 [facility] Serum or plasma calcium cony urement (mass/volume)Ordered By: Faina Tsai on 03-22-2025 Calcium [Mass/Vol] 9.2 mg/dL 7.6-11.0 [facility] Serum or plasma urea nitroge n measurement (mass/volume)Ordered By: Faina Tsai on 03-22-2025 Urea nitrogen [Mass/Vol] 19 mg/dL 4-19 [facility] Sodium levelOrdered By: Niraj Tsai on 03-22-2025 Sodium [Moles/Vol] 141 mmol/L 133-145 [facility] TSH DL <= 0.005 mIU/L QnOrde red By: Faina Tsai on 03-22-2025 TSH Qn 11.800 uIU/mL High 0.300-4.200 [facility] ThyroxineOrdered By: Faina lees on 03-22-2025 T4 [Mass/Vol] 6.2 ug/dL 4.8-13.9 [facility] Total proteinOrdered By: Rk Tsai on 03-22-2025 Protein [Mass/Vol] 6.7 g/dL 5.9-8.4 [facility] White blood cell (WBC) count Ordered By: Faina Tsai on 03-22-2025 WBC (Bld) [#/Vol] 7.1 10*3/uL 4.4-11.0 [facility] Absolute lymphocyte countOrd ered By: Bari Price on 05-03-2023 Lymphocytes Auto (Unsp spec) [#/Vol] 1.71 10*3/uL 0.83-4.51 [facility] Basophil percentageOrdered B y: Bari Price on 05-03-2023 Basophils/100 WBC (Bld) 1.0 % 0-1 [facility] Bilirubin [Mass/Vol] 0.20 mg/dL 0.20-1.00 [facility] Comment on above: For patients on eltr ombopag therapy, use of Dimension [place] TBIL is not recommended. Chloride [Moles/Vol] 112 mmol/L 98-107 [facility] Eosinophils/100 WBC (Bld) 1.3 % 0-5 [facility] Glucose [Mass/Vol] 96 mg/dL 74-106 [facility] Neutrophils (Bld) [#/Vol] 4.0 10*3/uL 2.0-7.7 [facility] Neutrophils/100 WBC (Bld) 59.3 % 47-70 [facility] Potassium [Moles/Vol] 4.3 mmol/L 3.5-5.1 [facility] Protein [Mass/Vol] 7.2 g/dL 6.4-8.2 [facility] Sodium [Moles/Vol] 143 mmol/L 136-145 [facility] WBC (Bld) [#/Vol] 6.8 10*3/uL 4.4-11.0 [facility] Blood erythrocytes count (nu mber/volume)Ordered By: Bari Price on 05-03-2023 RBC (Bld) [#/Vol] 4.32 10*6/uL 4.2-5.4 [facility] Blood hemoglobin measurement (mass/volume)Ordered By: Bari Price on 05-03-2023 Hemoglobin (Bld) [Mass/Vol] 12.8 g/dL 12.0-15.0 [facility] Blood lymphocytes/100 leukoc ytesOrdered By: Bari Price on 05-03-2023 Lymphocytes/100 WBC (Bld) 25.0 % 19-41 [facility] Blood monocytes/100 leukocyt esOrdered By: Bari Price on 05-03-2023 Monocytes/100 WBC (Bld) 13.3 % 0-10 [facility] Blood platelet mean volumeOr dered By: Bari Price on 05-03-2023 Platelet mean volume (Bld) [Entitic vol] 11.3 fL 6.2-12.0 [facility] Determination of erythrocyte mean corpuscular volume (MCV)Ordered By: Bari Price on 05-03-2023 MCV (RBC) [Entitic vol] 95.8 fL 81-99 [facility] Hematocrit Auto (Bld) [Volum e fraction]Ordered By: Bari Price on 05-03-2023 Hematocrit (Bld) [Volume fraction] 41.4 % 37-47 [facility] Laboratory - Chemistry and C hemistry - challengeOrdered By: Bari Price on 05-03-2023 ALP [Catalytic activity/Vol] 99 U/L 45-117 [facility] ALT [Catalytic activity/Vol] 18 U/L 13-56 [facility] CO2 [Moles/Vol] 25.0 mmol/L 21.0-32.0 [facility] Globulin (S) [Mass/Vol] 4.1 g/dL 2.2-4.2 [facility] Natriuretic peptide B (Bld) [Mass/Vol] 4.3 pg/mL 0-100 [facility] Urea nitrogen/Creatinine [Mass ratio] 39.1 mg/mg 10-20 [facility] Laboratory - Hematology and Cell countsOrdered By: Bari Price on 05-03-2023 Erythrocyte distribution width (RBC) [Entitic vol] 49.3 fL 35.1-43.9 [facility] Erythrocyte distribution width (RBC) [Ratio] 13.9 % 11.6-14.6 [facility] Immature granulocytes/100 WBC (Bld) 0.100 % 0.0-0.9 [facility] Comment on above: IG% - Immature Granu locytes (promyelocytes, myelocytes and metamyelocytes) > 1% indicates that a LEFT SHIFT is Present. MCH (RBC) [Entitic mass] 29.6 pg 27.0-32.0 [facility] Nucleated RBC/100 WBC (Bld) [Ratio] 0 % 0-5 [facility] MCHC Auto (RBC) [Mass/Vol]Or dered By: Bari Price on 05-03-2023 MCHC (RBC) [Mass/Vol] 30.9 g/dL 32-36 [facility] No Panel InformationOrdered By: Bari Price on 05-03-2023 Estimated GFR (MDRD) Amer 117 mL/min >60 [facility] Comment on above: GFR Calc Estimated GFR (MDRD) Non-Af Amer 97 mL/min >60 [facility] Comment on above: Non- GFR Calc Platelets bldOrdered By: Rolando Price on 05-03-2023 Platelets (Bld) [#/Vol] 232 10*3/uL 150-450 [facility] Serum or plasma albumin cony urement (mass/volume)Ordered By: Bari Price on 05-03-2023 Albumin [Mass/Vol] 3.1 g/dL 3.2-5.0 [facility] Serum or plasma albumin/glob ulin mass ratioOrdered By: Bari Price on 05-03-2023 Albumin/Globulin [Mass ratio] 0.8 {ratio} 0.9-2.4 [facility] Serum or plasma calcium cony urement (mass/volume)Ordered By: Bari Price on 05-03-2023 Calcium [Mass/Vol] 9.6 mg/dL 8.5-10.1 [facility] Serum or plasma creatinine m easurement (mass/volume)Ordered By: Bari Price on 05-03-2023 Creatinine [Mass/Vol] 0.64 mg/dL 0.55-1.02 [facility] Comment on above: The validity of the calculated GFR & GFRAA in patients over 70 years has not been determined. Clinical correlation is essential. Serum or plasma urea nitroge n measurement (mass/volume)Ordered By: Bari Price on 05-03-2023 Urea nitrogen [Mass/Vol] 25 mg/dL 7-18 [facility] Thin prep Papanicolaou smear with manual screeningOrdered By: Bari Price on 05-03-2023 Thin prep Papanicolaou smear with manual screening 18 U/L 15-37 [facility] Thin prep Papanicolaou smear with manual screening 6 5-15 [facility] Absolute lymphocyte countOrd ered By: Miguel Rosenberg on 03-18-2023 Lymphocytes Auto (Unsp spec) [#/Vol] 2.26 10*3/uL 0.83-4.51 [facility] Basophil percentageOrdered B y: Miguel Rosenberg on 03-18-2023 Basophils/100 WBC (Bld) 1.0 % 0-1 [facility] Chloride [Moles/Vol] 112 mmol/L 98-107 [facility] Eosinophils/100 WBC (Bld) 1.8 % 0-5 [facility] Glucose [Mass/Vol] 83 mg/dL 74-106 [facility] Neutrophils (Bld) [#/Vol] 4.8 10*3/uL 2.0-7.7 [facility] Neutrophils/100 WBC (Bld) 59.0 % 47-70 [facility] Potassium [Moles/Vol] 4.2 mmol/L 3.5-5.1 [facility] Sodium [Moles/Vol] 141 mmol/L 136-145 [facility] WBC (Bld) [#/Vol] 8.2 10*3/uL 4.4-11.0 [facility] Blood erythrocytes count (nu mber/volume)Ordered By: Miguel Rosenberg on 03-18-2023 RBC (Bld) [#/Vol] 4.29 10*6/uL 4.2-5.4 [facility] Blood hemoglobin measurement (mass/volume)Ordered By: Miguel Rosenberg on 03-18-2023 Hemoglobin (Bld) [Mass/Vol] 13.3 g/dL 12.0-15.0 [facility] Blood lymphocytes/100 leukoc ytesOrdered By: Miguel Rosenberg on 03-18-2023 Lymphocytes/100 WBC (Bld) 27.7 % 19-41 [facility] Blood monocytes/100 leukocyt esOrdered By: Miguel Rosenberg on 03-18-2023 Monocytes/100 WBC (Bld) 10.3 % 0-10 [facility] Blood platelet mean volumeOr dered By: Miguel Rosenberg on 03-18-2023 Platelet mean volume (Bld) [Entitic vol] 11.2 fL 6.2-12.0 [facility] Determination of erythrocyte mean corpuscular volume (MCV)Ordered By: Miguel Rosenberg on 03-18-2023 MCV (RBC) [Entitic vol] 95.8 fL 81-99 [facility] Hematocrit Auto (Bld) [Volum e fraction]Ordered By: Miguel Rosenberg on 03-18-2023 Hematocrit (Bld) [Volume fraction] 41.1 % 37-47 [facility] Laboratory - Chemistry and C hemistry - challengeOrdered By: Miguel Rosenberg on 03-18-2023 CO2 [Moles/Vol] 23.0 mmol/L 21.0-32.0 [facility] Urea nitrogen/Creatinine [Mass ratio] 27.5 mg/mg 10-20 [facility] Laboratory - Hematology and Cell countsOrdered By: Miguel Rosenberg on 03-18-2023 Erythrocyte distribution width (RBC) [Entitic vol] 47.1 fL 35.1-43.9 [facility] Erythrocyte distribution width (RBC) [Ratio] 13.3 % 11.6-14.6 [facility] Immature granulocytes/100 WBC (Bld) 0.200 % 0.0-0.9 [facility] Comment on above: IG% - Immature Granu locytes (promyelocytes, myelocytes and metamyelocytes) > 1% indicates that a LEFT SHIFT is Present. MCH (RBC) [Entitic mass] 31.0 pg 27.0-32.0 [facility] Nucleated RBC/100 WBC (Bld) [Ratio] 0 % 0-5 [facility] MCHC Auto (RBC) [Mass/Vol]Or dered By: Miguel Rosenberg on 03-18-2023 MCHC (RBC) [Mass/Vol] 32.4 g/dL 32-36 [facility] No Panel InformationOrdered By: Miguel Rosenberg on 03-18-2023 Estimated GFR (MDRD) Amer 114 mL/min >60 [facility] Comment on above: GFR Calc Estimated GFR (MDRD) Non-Af Amer 94 mL/min >60 [facility] Comment on above: Non- GFR Calc Platelets bldOrdered By: Salvador Rosenberg on 03-18-2023 Platelets (Bld) [#/Vol] 248 10*3/uL 150-450 [facility] Serum or plasma calcium cony urement (mass/volume)Ordered By: Miguel Rosenberg on 03-18-2023 Calcium [Mass/Vol] 9.1 mg/dL 8.5-10.1 [facility] Serum or plasma creatinine m easurement (mass/volume)Ordered By: Miguel Rosenberg on 03-18-2023 Creatinine [Mass/Vol] 0.66 mg/dL 0.55-1.02 [facility] Comment on above: The validity of the calculated GFR & GFRAA in patients over 70 years has not been determined. Clinical correlation is essential. Serum or plasma urea nitroge n measurement (mass/volume)Ordered By: Miguel Rosenberg on 03-18-2023 Urea nitrogen [Mass/Vol] 18 mg/dL 7-18 [facility] Thin prep Papanicolaou smear with manual screeningOrdered By: Miguel Rosenberg on 03-18-2023 Thin prep Papanicolaou smear with manual screening 6 5-15 [facility] Bilirubin Test strip Ql (U)O rdered By: Miguel Rosenberg on 02-25-2023 Bilirubin Ql (U) Negative Negative [facility] Culture, urineOrdered By: Malina Rosenberg on 02-25-2023 Bacteria identified Cx Nom (U) Presumptive E. coli [facility] Ketones Test strip Ql (U)Ord ered By: Miguel Rosenberg on 02-25-2023 Ketones Ql (U) 5 mg/dl Negative [facility] Nitrite Test strip Ql (U)Ord ered By: Miguel Rosenberg on 02-25-2023 Nitrite Ql (U) Positive Negative [facility] Protein Test strip Ql (U)Ord ered By: Miguel Rosenberg on 02-25-2023 Protein Ql (U) 15 mg/dl Negative [facility] Urine blood detectionOrdered By: Miguel Rosenberg on 02-25-2023 RBC Ql (U) 10 /ul Negative [facility] Urine clarityOrdered By: Salvador Rosenberg on 02-25-2023 Clarity (U) Sl. Cloudy Clear [facility] Urine color determinationOrd ered By: Miguel Rosenberg on 02-25-2023 Color (U) Yellow Yellow [facility] Urine glucose detectionOrder ed By: Miguel Rosenberg on 02-25-2023 Glucose Ql (U) Normal mg/dl Normal [facility] Urine leukocyte esterase det ection by dipstickOrdered By: Miguel Rosenberg on 02-25-2023 Leukocyte esterase Test strip Ql (U) 100 /ul Negative [facility] Urine pHOrdered By: Miguel interiano on 02-25-2023 pH (U) 6.0 [pH] 5.0 - 8.0 [facility] Urine specific gravity measu rementOrdered By: Miguel Rosenberg on 02-25-2023 Specific gravity (U) [Rel density] 1.025 1.002-1.030 [facility] Urobilinogen Auto test strip Ql (U)Ordered By: Miguel Rosenberg on 02-25-2023 Urobilinogen Ql (U) Normal mg/dl Normal [facility] Basophil percentageOrdered B y: Miguel Rosenberg on 02-14-2023 Chloride [Moles/Vol] 113 mmol/L 98-[address] [facility] Glucose [Mass/Vol] 80 mg/dL 74-106 [facility] Potassium [Moles/Vol] 4.0 mmol/L 3.5-5.1 [facility] Sodium [Moles/Vol] 144 mmol/L 136-145 [facility] WBC (Bld) [#/Vol] 4.7 10*3/uL 4.4-11.0 [facility] Blood erythrocytes count (nu mber/volume)Ordered By: Miguel Rosenberg on 02-14-2023 RBC (Bld) [#/Vol] 4.08 10*6/uL 4.2-5.4 [facility] Blood hemoglobin measurement (mass/volume)Ordered By: Miguel Rosenberg on 02-14-2023 Hemoglobin (Bld) [Mass/Vol] 12.9 g/dL 12.0-15.0 [facility] Blood platelet mean volumeOr dered By: Miguel Rosenberg on 02-14-2023 Platelet mean volume (Bld) [Entitic vol] 11.9 fL 6.2-12.0 [facility] Determination of erythrocyte mean corpuscular volume (MCV)Ordered By: Miguel Rosenberg on 02-14-2023 MCV (RBC) [Entitic vol] 98.5 fL 81-99 [facility] Hematocrit Auto (Bld) [Volum e fraction]Ordered By: Miguel Rosenberg on 02-14-2023 Hematocrit (Bld) [Volume fraction] 40.2 % 37-47 [facility] Laboratory - Chemistry and C hemistry - challengeOrdered By: Miguel Rosenberg on 02-14-2023 CO2 [Moles/Vol] 23.0 mmol/L 21.0-32.0 [facility] Urea nitrogen/Creatinine [Mass ratio] 30.8 mg/mg 10-20 [facility] Laboratory - Hematology and Cell countsOrdered By: Miguel Rosenberg on 02-14-2023 Erythrocyte distribution width (RBC) [Entitic vol] 50.0 fL 35.1-43.9 [facility] Erythrocyte distribution width (RBC) [Ratio] 13.8 % 11.6-14.6 [facility] MCH (RBC) [Entitic mass] 31.6 pg 27.0-32.0 [facility] MCHC Auto (RBC) [Mass/Vol]Or dered By: Miguel Rosenberg on 02-14-2023 MCHC (RBC) [Mass/Vol] 32.1 g/dL 32-36 [facility] No Panel InformationOrdered By: Miguel Rosenberg on 02-14-2023 Estimated GFR (MDRD) Amer 130 mL/min >60 [facility] Comment on above: GFR Calc Estimated GFR (MDRD) Non-Af Amer 108 mL/min >60 [facility] Comment on above: Non- GFR Calc Platelets bldOrdered By: Salvador Rosenberg on 02-14-2023 Platelets (Bld) [#/Vol] 199 10*3/uL 150-450 [facility] Serum or plasma calcium cony urement (mass/volume)Ordered By: Miguel Rosenberg on 02-14-2023 Calcium [Mass/Vol] 9.5 mg/dL 8.5-10.1 [facility] Serum or plasma creatinine m easurement (mass/volume)Ordered By: Miguel Rosenberg on 02-14-2023 Creatinine [Mass/Vol] 0.58 mg/dL 0.55-1.02 [facility] Comment on above: The validity of the calculated GFR & GFRAA in patients over 70 years has not been determined. Clinical correlation is essential. Serum or plasma urea nitroge n measurement (mass/volume)Ordered By: Miguel Rosenberg on 02-14-2023 Urea nitrogen [Mass/Vol] 18 mg/dL 7-18 [facility] Thin prep Papanicolaou smear with manual screeningOrdered By: Miguel Rosenberg on 02-14-2023 Thin prep Papanicolaou smear with manual screening 8 5-15 [facility] Absolute lymphocyte countOrd ered By: Dr. Bates on 01-23-2023 Lymphocytes Auto (Unsp spec) [#/Vol] 1.93 10*3/uL 0.83-4.51 [facility] Basophil percentageOrdered B y: Dr. Bates on 01-23-2023 Basophils/100 WBC (Bld) 1.4 % 0-1 [facility] Chloride [Moles/Vol] 112 mmol/L 98-107 [facility] Eosinophils/100 WBC (Bld) 2.3 % 0-5 [facility] Glucose [Mass/Vol] 84 mg/dL 74-106 [facility] Neutrophils (Bld) [#/Vol] 2.7 10*3/uL 2.0-7.7 [facility] Neutrophils/100 WBC (Bld) 48.9 % 47-70 [facility] Potassium [Moles/Vol] 4.2 mmol/L 3.5-5.1 [facility] Comment on above: Slight Hemolysis, Re sult may be falsely increased. Sodium [Moles/Vol] 140 mmol/L 136-145 [facility] WBC (Bld) [#/Vol] 5.6 10*3/uL 4.4-11.0 [facility] Blood erythrocytes count (nu mber/volume)Ordered By: Dr. Bates on 01-23-2023 RBC (Bld) [#/Vol] 3.70 10*6/uL 4.2-5.4 [facility] Blood hemoglobin measurement (mass/volume)Ordered By: Dr. Bates on 01-23-2023 Hemoglobin (Bld) [Mass/Vol] 11.9 g/dL 12.0-15.0 [facility] Blood lymphocytes/100 leukoc ytesOrdered By: Dr. Bates on 01-23-2023 Lymphocytes/100 WBC (Bld) 34.5 % 19-41 [facility] Blood monocytes/100 leukocyt esOrdered By: Dr. Bates on 01-23-2023 Monocytes/100 WBC (Bld) 12.5 % 0-10 [facility] Blood platelet mean volumeOr dered By: Dr. Bates on 01-23-2023 Platelet mean volume (Bld) [Entitic vol] 11.8 fL 6.2-12.0 [facility] Determination of erythrocyte mean corpuscular volume (MCV)Ordered By: Dr. Bates on 01-23-2023 MCV (RBC) [Entitic vol] 101.1 fL 81-99 [facility] Hematocrit Auto (Bld) [Volum e fraction]Ordered By: Dr. Bates on 01-23-2023 Hematocrit (Bld) [Volume fraction] 37.4 % 37-47 [facility] Laboratory - Chemistry and C hemistry - challengeOrdered By: Dr. Bates on 01-23-2023 CO2 [Moles/Vol] 23.0 mmol/L 21.0-32.0 [facility] Urea nitrogen/Creatinine [Mass ratio] 25.9 mg/mg 10-20 [facility] Laboratory - Hematology and Cell countsOrdered By: Dr. Bates on 01-23-2023 Erythrocyte distribution width (RBC) [Entitic vol] 51.0 fL 35.1-43.9 [facility] Erythrocyte distribution width (RBC) [Ratio] 13.8 % 11.6-14.6 [facility] Immature granulocytes/100 WBC (Bld) 0.400 % 0.0-0.9 [facility] Comment on above: IG% - Immature Granu locytes (promyelocytes, myelocytes and metamyelocytes) > 1% indicates that a LEFT SHIFT is Present. MCH (RBC) [Entitic mass] 32.2 pg 27.0-32.0 [facility] Nucleated RBC/100 WBC (Bld) [Ratio] 0 % 0-5 [facility] MCHC Auto (RBC) [Mass/Vol]Or dered By: Dr. Bates on 01-23-2023 MCHC (RBC) [Mass/Vol] 31.8 g/dL 32-36 [facility] No Panel InformationOrdered By: Dr. Bates on 01-23-2023 Estimated GFR (MDRD) Amer 132 mL/min >60 [facility] Comment on above: GFR Calc Estimated GFR (MDRD) Non-Af Amer 109 mL/min >60 [facility] Comment on above: Non- GFR Calc Platelets bldOrdered By: Dr. Bates on 01-23-2023 Platelets (Bld) [#/Vol] 187 10*3/uL 150-450 [facility] Serum or plasma calcium cony urement (mass/volume)Ordered By: Dr. Bates on 01-23-2023 Calcium [Mass/Vol] 9.5 mg/dL 8.5-10.1 [facility] Serum or plasma creatinine m easurement (mass/volume)Ordered By: Dr. Bates on 01-23-2023 Creatinine [Mass/Vol] 0.58 mg/dL 0.55-1.02 [facility] Comment on above: The validity of the calculated GFR & GFRAA in patients over 70 years has not been determined. Clinical correlation is essential. Serum or plasma urea nitroge n measurement (mass/volume)Ordered By: Dr. Bates on 01-23-2023 Urea nitrogen [Mass/Vol] 15 mg/dL 7-18 [facility] Thin prep Papanicolaou smear with manual screeningOrdered By: Dr. Bates on 01-23-2023 Thin prep Papanicolaou smear with manual screening 5 5-15 [facility] Absolute lymphocyte countOrd ered By: Dr. Bates on 01-16-2023 Lymphocytes Auto (Unsp spec) [#/Vol] 1.59 10*3/uL 0.83-4.51 [facility] Basophil percentageOrdered B y: Dr. Bates on 01-16-2023 Basophils/100 WBC (Bld) 1.5 % 0-1 [facility] Chloride [Moles/Vol] 110 mmol/L 98-107 [facility] Eosinophils/100 WBC (Bld) 2.2 % 0-5 [facility] Glucose [Mass/Vol] 92 mg/dL 74-106 [facility] Neutrophils (Bld) [#/Vol] 2.3 10*3/uL 2.0-7.7 [facility] Neutrophils/100 WBC (Bld) 49.9 % 47-70 [facility] Potassium [Moles/Vol] 3.5 mmol/L 3.5-5.1 [facility] Sodium [Moles/Vol] 140 mmol/L 136-145 [facility] WBC (Bld) [#/Vol] 4.7 10*3/uL 4.4-11.0 [facility] Blood erythrocytes count (nu mber/volume)Ordered By: Dr. Bates on 01-16-2023 RBC (Bld) [#/Vol] 3.72 10*6/uL 4.2-5.4 [facility] Blood hemoglobin measurement (mass/volume)Ordered By: Dr. Bates on 01-16-2023 Hemoglobin (Bld) [Mass/Vol] 11.9 g/dL 12.0-15.0 [facility] Blood lymphocytes/100 leukoc ytesOrdered By: Dr. Bates on 01-16-2023 Lymphocytes/100 WBC (Bld) 34.2 % 19-41 [facility] Blood monocytes/100 leukocyt esOrdered By: Dr. Bates on 01-16-2023 Monocytes/100 WBC (Bld) 11.8 % 0-10 [facility] Blood platelet mean volumeOr dered By: Dr. Bates on 01-16-2023 Platelet mean volume (Bld) [Entitic vol] 11.6 fL 6.2-12.0 [facility] Determination of erythrocyte mean corpuscular volume (MCV)Ordered By: Dr. Bates on 01-16-2023 MCV (RBC) [Entitic vol] 103.0 fL 81-99 [facility] Hematocrit Auto (Bld) [Volum e fraction]Ordered By: Dr. Bates on 01-16-2023 Hematocrit (Bld) [Volume fraction] 38.3 % 37-47 [facility] Laboratory - Chemistry and C hemistry - challengeOrdered By: Dr. Bates on 01-16-2023 CO2 [Moles/Vol] 24.0 mmol/L 21.0-32.0 [facility] Urea nitrogen/Creatinine [Mass ratio] 25.4 mg/mg 10-20 [facility] Laboratory - Hematology and Cell countsOrdered By: Dr. Bates on 01-16-2023 Erythrocyte distribution width (RBC) [Entitic vol] 52.4 fL 35.1-43.9 [facility] Erythrocyte distribution width (RBC) [Ratio] 13.8 % 11.6-14.6 [facility] Immature granulocytes/100 WBC (Bld) 0.400 % 0.0-0.9 [facility] Comment on above: IG% - Immature Granu locytes (promyelocytes, myelocytes and metamyelocytes) > 1% indicates that a LEFT SHIFT is Present. MCH (RBC) [Entitic mass] 32.0 pg 27.0-32.0 [facility] Nucleated RBC/100 WBC (Bld) [Ratio] 0 % 0-5 [facility] MCHC Auto (RBC) [Mass/Vol]Or dered By: Dr. Bates on 01-16-2023 MCHC (RBC) [Mass/Vol] 31.1 g/dL 32-36 [facility] No Panel InformationOrdered By: Dr. Bates on 01-16-2023 Estimated GFR (MDRD) Amer 129 mL/min >60 [facility] Comment on above: GFR Calc Estimated GFR (MDRD) Non-Af Amer 106 mL/min >60 [facility] Comment on above: Non- GFR Calc Platelets bldOrdered By: Dr. Bates on 01-16-2023 Platelets (Bld) [#/Vol] 192 10*3/uL 150-450 [facility] Serum or plasma calcium cony urement (mass/volume)Ordered By: Dr. Bates on 01-16-2023 Calcium [Mass/Vol] 9.5 mg/dL 8.5-10.1 [facility] Serum or plasma creatinine m easurement (mass/volume)Ordered By: Dr. Bates on 01-16-2023 Creatinine [Mass/Vol] 0.59 mg/dL 0.55-1.02 [facility] Comment on above: The validity of the calculated GFR & GFRAA in patients over 70 years has not been determined. Clinical correlation is essential. Serum or plasma urea nitroge n measurement (mass/volume)Ordered By: Dr. Bates on 01-16-2023 Urea nitrogen [Mass/Vol] 15 mg/dL 7-18 [facility] Thin prep Papanicolaou smear with manual screeningOrdered By: Dr. Bates on 01-16-2023 Thin prep Papanicolaou smear with manual screening 6 5-15 [facility] Absolute lymphocyte countOrd ered By: Dr. Bates on 01-10-2023 Lymphocytes Auto (Unsp spec) [#/Vol] 1.81 10*3/uL 0.83-4.51 [facility] Basophil percentageOrdered B y: Dr. Bates on 01-10-2023 Basophils/100 WBC (Bld) 1.3 % 0-1 [facility] Chloride [Moles/Vol] 111 mmol/L 98-107 [facility] Eosinophils/100 WBC (Bld) 4.0 % 0-5 [facility] Glucose [Mass/Vol] 95 mg/dL 74-106 [facility] Neutrophils (Bld) [#/Vol] 2.7 10*3/uL 2.0-7.7 [facility] Neutrophils/100 WBC (Bld) 49.4 % 47-70 [facility] Potassium [Moles/Vol] 3.7 mmol/L 3.5-5.1 [facility] Comment on above: Slight Hemolysis, Re sult may be falsely increased. Sodium [Moles/Vol] 142 mmol/L 136-145 [facility] WBC (Bld) [#/Vol] 5.4 10*3/uL 4.4-11.0 [facility] Blood erythrocytes count (nu mber/volume)Ordered By: Dr. Bates on 01-10-2023 RBC (Bld) [#/Vol] 3.85 10*6/uL 4.2-5.4 [facility] Blood hemoglobin measurement (mass/volume)Ordered By: Dr. Bates on 01-10-2023 Hemoglobin (Bld) [Mass/Vol] 12.5 g/dL 12.0-15.0 [facility] Blood lymphocytes/100 leukoc ytesOrdered By: Dr. Bates on 01-10-2023 Lymphocytes/100 WBC (Bld) 33.3 % 19-41 [facility] Blood monocytes/100 leukocyt esOrdered By: Dr. Bates on 01-10-2023 Monocytes/100 WBC (Bld) 11.6 % 0-10 [facility] Blood platelet mean volumeOr dered By: Dr. Bates on 01-10-2023 Platelet mean volume (Bld) [Entitic vol] 11.4 fL 6.2-12.0 [facility] Determination of erythrocyte mean corpuscular volume (MCV)Ordered By: Dr. Bates on 01-10-2023 MCV (RBC) [Entitic vol] 102.9 fL 81-99 [facility] Hematocrit Auto (Bld) [Volum e fraction]Ordered By: Dr. Bates on 01-10-2023 Hematocrit (Bld) [Volume fraction] 39.6 % 37-47 [facility] Laboratory - Chemistry and C hemistry - challengeOrdered By: Dr. Bates on 01-10-2023 CO2 [Moles/Vol] 24.0 mmol/L 21.0-32.0 [facility] Cobalamin (Vitamin B12) [Mass/Vol] 815 pg/mL 211-911 [facility] Magnesium [Mass/Vol] 1.8 mg/dL 1.6-2.6 [facility] Comment on above: Slight Hemolysis, Re sult may be falsely increased. Urea nitrogen/Creatinine [Mass ratio] 28.7 mg/mg 10-20 [facility] Laboratory - Hematology and Cell countsOrdered By: Dr. Bates on 01-10-2023 Erythrocyte distribution width (RBC) [Entitic vol] 55.5 fL 35.1-43.9 [facility] Erythrocyte distribution width (RBC) [Ratio] 14.5 % 11.6-14.6 [facility] Immature granulocytes/100 WBC (Bld) 0.400 % 0.0-0.9 [facility] Comment on above: IG% - Immature Granu locytes (promyelocytes, myelocytes and metamyelocytes) > 1% indicates that a LEFT SHIFT is Present. MCH (RBC) [Entitic mass] 32.5 pg 27.0-32.0 [facility] Nucleated RBC/100 WBC (Bld) [Ratio] 0 % 0-5 [facility] MCHC Auto (RBC) [Mass/Vol]Or dered By: Dr. Bates on 01-10-2023 MCHC (RBC) [Mass/Vol] 31.6 g/dL 32-36 [facility] No Panel InformationOrdered By: Dr. Bates on 01-10-2023 Estimated GFR (MDRD) Amer 101 mL/min >60 [facility] Comment on above: GFR Calc Estimated GFR (MDRD) Non-Af Amer 83 mL/min >60 [facility] Comment on above: Non- GFR Calc Thyroid Stimulating Hormone (TSH) 4.12 uIU/mL 0.358-3.74 [facility] Vitamin D 25-Hydroxy 40.4 ng/mL [facility] Comment on above: Vitamin D 25(OH) Sta tus Range Deficiency <20 ng/mL (50nmol/L) Insufficiency 20 - 30 ng/mL (50 - 75 nmol/L) Sufficiency 30 - 100 ng/mL (75 - 250 nmol/L) Toxicity >100 ng/mL (>250 nmol/L) Platelets bldOrdered By: Dr. Bates on 01-10-2023 Platelets (Bld) [#/Vol] 200 10*3/uL 150-450 [facility] Serum or plasma calcium cony urement (mass/volume)Ordered By: Dr. Bates on 01-10-2023 Calcium [Mass/Vol] 10.0 mg/dL 8.5-10.1 [facility] Serum or plasma creatinine m easurement (mass/volume)Ordered By: Dr. Bates on 01-10-2023 Creatinine [Mass/Vol] 0.73 mg/dL 0.55-1.02 [facility] Comment on above: The validity of the calculated GFR & GFRAA in patients over 70 years has not been determined. Clinical correlation is essential. Serum or plasma urea nitroge n measurement (mass/volume)Ordered By: Dr. Bates on 01-10-2023 Urea nitrogen [Mass/Vol] 21 mg/dL 7-18 [facility] Thin prep Papanicolaou smear with manual screeningOrdered By: Dr. Bates on 01-10-2023 Thin prep Papanicolaou smear with manual screening 7 5-15 [facility] CASE MANAGEMon 01-09-2023 CASE MANAGEM Normal [facility] CASE MANAGEM Normal [facility] CASE MANAGEM Normal [facility] CNDSon 01-09-2023 CNDS Normal [facility] NURSING PROGon 01-09-2023 NURSING PROG [facility] SARS-CoV-2 RNA Resp Ql CY+p robeon 01-09-2023 SARS-CoV-2 (COVID-19) RNA CY+probe Ql (Resp) COVID 19 RESULT: Not detected The method used is RT-PCR or an equivalent NAAT method. Reference Range(the expected result in uninfected individuals): Not detected [facility] Comment on above: Performed By: #### 9 4500-6 ####[facility] LABORATORYCLIA [id number] [address] CASE MANAGEMon 01-08-2023 CASE MANAGEM Normal [facility] NUTRITIONon 01-08-2023 NUTRITION Normal [facility] THERAPY NTon 01-08-2023 THERAPY NT Normal [facility] THERAPY NT Normal [facility] THERAPY NT Normal [facility] CASE MANAGEMon 01-07-2023 CASE MANAGEM Normal [facility] CONSULT PROGon 01-07-2023 CONSULT PROG Normal [facility] NURSING PROGon 01-06-2023 NURSING PROG Normal [facility] NURSING PROGon 01-05-2023 NURSING PROG Normal [facility] NURSING PROG Normal [facility] CASE MANAGEMon 01-04-2023 CASE MANAGEM Normal [facility] CASE MANAGEM Normal [facility] CBC W Auto Differential pane l (Bld)on 01-04-2023 Basophils (Bld) [#/Vol] 0.09 10*3/uL Normal <0.11 [facility] Comment on above: Order Comment: Speci men Type: BLOOD SPECIMENOrdering Facility: [facility] Address: [address] [place] [address] Performed By: #### 5 7021-8 ####[facility] LABORATORYCLIA [id number] [place] [address] [place] Basophils/100 WBC (Bld) 1.5 % Normal [facility] Comment on above: Order Comment: Speci men Type: BLOOD SPECIMENOrdering Facility: [facility] Address: [address] [place] [address] Performed By: #### 5 7021-8 ####[facility] LABORATORYCLIA [id number] [place] [address] [place] Differential cell count method Nom (Bld) Auto Normal [facility] Comment on above: Order Comment: Speci men Type: BLOOD SPECIMENOrdering Facility: [facility] Address: [address] [place] [address] Performed By: #### 5 7021-8 ####[facility] LABORATORYCLIA [id number] [place] [address] [place] Eosinophils (Bld) [#/Vol] 0.17 10*3/uL Normal <0.46 [facility] Comment on above: Order Comment: Speci men Type: BLOOD SPECIMENOrdering Facility: [facility] Address: [address] [address] Performed By: #### 5 7021-8 ####[facility] LABORATORYCLIA [id number] [address] Eosinophils/100 WBC (Bld) 2.8 % Normal [facility] Comment on above: Order Comment: Speci men Type: BLOOD SPECIMENOrdering Facility: [facility] Address: [address] [place] [address] Performed By: #### 5 7021-8 ####[facility] LABORATORYCLIA [id number] [address] [place] Erythrocyte distribution width (RBC) [Ratio] 14.5 % Normal 11.5-15.0 [facility] Comment on above: Order Comment: Speci men Type: BLOOD SPECIMENOrdering Facility: [facility] Address: [address] [place] [address] Performed By: #### 5 7021-8 ####[facility] LABORATORYCLIA [id number] [address] [place] Hematocrit (Bld) [Volume fraction] 32.0 % Low 36.0-46.0 [facility] Comment on above: Order Comment: Speci men Type: BLOOD SPECIMENOrdering Facility: [facility] Address: [address] [place] [address] Performed By: #### 5 7021-8 ####[facility] LABORATORYCLIA [id number] [address] [place] Hemoglobin (Bld) [Mass/Vol] 10.5 g/dL Low 11.5-15.5 [facility] Comment on above: Order Comment: Speci men Type: BLOOD SPECIMENOrdering Facility: [facility] Address: [address] [place] [address] Performed By: #### 5 7021-8 ####[facility] LABORATORYCLIA [id number] [address] [place] Immature granulocytes (Bld) [#/Vol] 10*3/uL Normal <0.10 [facility] Comment on above: Order Comment: Speci men Type: BLOOD SPECIMENOrdering Facility: [facility] Address: [address] [place] [address] Performed By: #### 5 7021-8 ####[facility] LABORATORYCLIA [id number] [address] Immature granulocytes/100 WBC (Bld) 0.3 % Normal [facility] Comment on above: Order Comment: Speci men Type: BLOOD SPECIMENOrdering Facility: [facility] Address: [address] [place] [address] Performed By: #### 5 7021-8 ####[facility] LABORATORYCLIA [id number] [address] Lymphocytes (Bld) [#/Vol] 1.35 10*3/uL Normal 1.00-4.00 [facility] Comment on above: Order Comment: Speci men Type: BLOOD SPECIMENOrdering Facility: [facility] Address: [address] [place] [address] Performed By: #### 5 7021-8 ####[facility] LABORATORYCLIA [id number] [address] Lymphocytes/100 WBC (Bld) 22.6 % Normal [facility] Comment on above: Order Comment: Speci men Type: BLOOD SPECIMENOrdering Facility: [facility] Address: [address] [place] [address] Performed By: #### 5 7021-8 ####[facility] LABORATORYCLIA [id number] [address] MCH (RBC) [Entitic mass] 32.7 pg Normal 26.0-34.0 [facility] Comment on above: Order Comment: Speci men Type: BLOOD SPECIMENOrdering Facility: [facility] Address: [address] [place] [address] Performed By: #### 5 7021-8 ####[facility] LABORATORYCLIA [id number] [address] MCHC (RBC) [Mass/Vol] 32.8 g/dL Normal 30.5-36.0 [facility] Comment on above: Order Comment: Speci men Type: BLOOD SPECIMENOrdering Facility: [facility] Address: [address] [place] [address] Performed By: #### 5 7021-8 ####[facility] LABORATORYCLIA [id number] [address] [place] MCV (RBC) [Entitic vol] 99.7 fL Normal 80.0-100.0 [facility] Comment on above: Order Comment: Speci men Type: BLOOD SPECIMENOrdering Facility: [facility] Address: [address] [place] [address] Performed By: #### 5 7021-8 ####[facility] LABORATORYCLIA [id number] [address] [place] Monocytes (Bld) [#/Vol] 0.68 10*3/uL Normal <0.87 [facility] Comment on above: Order Comment: Speci men Type: BLOOD SPECIMENOrdering Facility: [facility] Address: [address] [place] [address] Performed By: #### 5 7021-8 ####[facility] LABORATORYCLIA [id number] [address] Monocytes/100 WBC (Bld) 11.4 % Normal [facility] Comment on above: Order Comment: Speci men Type: BLOOD SPECIMENOrdering Facility: [facility] Address: [address] [place] [address] Performed By: #### 5 7021-8 ####[facility] LABORATORYCLIA [id number] [address] [place] Neutrophils (Bld) [#/Vol] 3.67 10*3/uL Normal 1.45-7.50 [facility] Comment on above: Order Comment: Speci men Type: BLOOD SPECIMENOrdering Facility: [facility] Address: [address] [place] [address] Performed By: #### 5 7021-8 ####[facility] LABORATORYCLIA [id number] [address] Neutrophils/100 WBC (Bld) 61.4 % Normal [facility] Comment on above: Order Comment: Speci men Type: BLOOD SPECIMENOrdering Facility: [facility] Address: [address] [place] [address] Performed By: #### 5 7021-8 ####[facility] LABORATORYCLIA [id number] [address] Nucleated RBC (Bld) [#/Vol] 10*3/uL Normal <0.01 [facility] Comment on above: Order Comment: Speci men Type: BLOOD SPECIMENOrdering Facility: [facility] Address: [address] [place] [address] Performed By: #### 5 7021-8 ####[facility] LABORATORYCLIA [id number] [address] Nucleated RBC/100 WBC (Bld) [Ratio] 0.0 /100 WBC Normal [facility] Comment on above: Order Comment: Speci men Type: BLOOD SPECIMENOrdering Facility: [facility] Address: [address] [place] [address] Performed By: #### 5 7021-8 ####[facility] LABORATORYCLIA [id number] [address] [place] Platelet mean volume (Bld) [Entitic vol] 11.0 fL Normal 9.0-12.7 [facility] Comment on above: Order Comment: Speci men Type: BLOOD SPECIMENOrdering Facility: [facility] Address: [address] [place] [address] Performed By: #### 5 7021-8 ####[facility] LABORATORYCLIA [id number] [address] [place] Platelets (Bld) [#/Vol] 218 10*3/uL Normal 150-400 [facility] Comment on above: Order Comment: Speci men Type: BLOOD SPECIMENOrdering Facility: [facility] Address: [address] [address] Performed By: #### 5 7021-8 ####[facility] LABORATORYCLIA [id number] [address] OF [facility] RBC (Bld) [#/Vol] 3.21 10*6/uL Low 3.90-5.20 [facility] Comment on above: Order Comment: Speci men Type: BLOOD SPECIMENOrdering Facility: [facility] Address: [address] [address] Performed By: #### 5 7021-8 ####[facility] LABORATORYCLIA [id number] [address] WBC (Bld) [#/Vol] 5.98 10*3/uL Normal 3.70-11.00 [facility] Comment on above: Order Comment: Speci men Type: BLOOD SPECIMENOrdering Facility: [facility] Address: [address] [place] [address] Performed By: #### 5 7021-8 ####[facility] LABORATORYCLIA [id number] [address] CONSULT PROGon 01-04-2023 CONSULT PROG Normal [facility] Comprehensive metabolic 2000 panelon 01-04-2023 Albumin [Mass/Vol] 3.2 g/dL Low 3.9-4.9 [facility] Comment on above: Order Comment: Speci men Type: BLOOD SPECIMENOrdering Facility: [facility] Address: [address] [address] Performed By: #### 2 4323-8 ####[facility] LABORATORYCLIA [id number] [address] ALP [Catalytic activity/Vol] 97 U/L Normal 34-123 [facility] Comment on above: Order Comment: Speci men Type: BLOOD SPECIMENOrdering Facility: [facility] Address: [address] [place] [address] Performed By: #### 2 4323-8 ####[facility] LABORATORYCLIA [id number] [place] [address] [place] ALT With P-5'-P [Catalytic activity/Vol] 15 U/L Normal 7-38 [facility] Comment on above: Order Comment: Speci men Type: BLOOD SPECIMENOrdering Facility: [facility] Address: [address] [place] [address] Performed By: #### 2 4323-8 ####[facility] LABORATORYCLIA [id number] [address] [place] Anion gap [Moles/Vol] 12 mmol/L Normal 9-18 [facility] Comment on above: Order Comment: Speci men Type: BLOOD SPECIMENOrdering Facility: [facility] Address: [address] [place] [address] Performed By: #### 2 4323-8 ####[facility] LABORATORYCLIA [id number] [address] STATES OF [facility] AST With P-5'-P [Catalytic activity/Vol] 33 U/L Normal 13-35 [facility] Comment on above: Order Comment: Speci men Type: BLOOD SPECIMENOrdering Facility: [facility] Address: [address] [place] [address] Performed By: #### 2 4323-8 ####[facility] LABORATORYCLIA [id number] [address] [place] Bilirubin [Mass/Vol] 0.2 mg/dL Normal 0.2-1.3 [facility] Comment on above: Order Comment: Speci men Type: BLOOD SPECIMENOrdering Facility: [facility] Address: [address] [place] [address] Performed By: #### 2 4323-8 ####[facility] LABORATORYCLIA [id number] [address] [place] Calcium [Mass/Vol] 9.8 mg/dL Normal 8.5-10.2 [facility] Comment on above: Order Comment: Speci men Type: BLOOD SPECIMENOrdering Facility: [facility] Address: [address] [address] Performed By: #### 2 4323-8 ####[facility] LABORATORYCLIA [id number] [address] STATES OF [facility] Chloride [Moles/Vol] 104 mmol/L Normal 97-105 [facility] Comment on above: Order Comment: Speci men Type: BLOOD SPECIMENOrdering Facility: [facility] Address: [address] [place] [address] Performed By: #### 2 4323-8 ####[facility] LABORATORYCLIA [id number] [address] STATES OF [facility] CO2 [Moles/Vol] 21 mmol/L Low 22-30 [facility] Comment on above: Order Comment: Speci men Type: BLOOD SPECIMENOrdering Facility: [facility] Address: [address] [place] [address] Performed By: #### 2 4323-8 ####[facility] LABORATORYCLIA [id number] [address] STATES OF [facility] Creatinine [Mass/Vol] 0.54 mg/dL Low 0.58-0.96 [facility] Comment on above: Order Comment: Speci men Type: BLOOD SPECIMENOrdering Facility: [facility] Address: [address] [place] [address] Performed By: #### 2 4323-8 ####[facility] LABORATORYCLIA [id number] [address] ESTIMATED GLOMERULAR FILTRATION RATE 99 mL/min/1.73m??? Normal >=60 [facility] Comment on above: Order Comment: Speci men Type: BLOOD SPECIMENOrdering Facility: [facility] Address: [address] [place] [address] Result Comment: Mariely mated Glomerular Filtration Rate [...] actual GFR. Performed By: #### 2 4323-8 ####[facility] LABORATORYCLIA [id number] [place] [address] [place] Glucose [Mass/Vol] 94 mg/dL Normal 74-99 [facility] Comment on above: Order Comment: Cary lujan Type: BLOOD SPECIMENOrdering Facility: [facility] Address: [address] [place] [address] Result Comment: The [place] [employer] (ADA) provides guidance for cutoff [...] Standards of Medical Care in Diabetes 2016, [place] [employer]. Diabetes Care. 2016.39(Suppl 1). Performed By: #### 2 4323-8 ####[facility] LABORATORYCLIA [id number] [address] [place] Potassium [Moles/Vol] 4.1 mmol/L Normal 3.7-5.1 [facility] Comment on above: Order Comment: Cary lujan Type: BLOOD SPECIMENOrdering Facility: [facility] Address: [address] [address] Performed By: #### 2 4323-8 ####[facility] LABORATORYCLIA [id number] [place] [address] [place] Protein [Mass/Vol] 6.6 g/dL Normal 6.3-8.0 [facility] Comment on above: Order Comment: Cary lujan Type: BLOOD SPECIMENOrdering Facility: [facility] Address: [address] [place] [address] Performed By: #### 2 4323-8 ####[facility]ORATORYCLIA [id number] [place] [address] [place] Sodium [Moles/Vol] 137 mmol/L Normal 136-144 [facility] Comment on above: Order Comment: Speci men Type: BLOOD SPECIMENOrdering Facility: [facility] Address: [address] [place] [address] Performed By: #### 2 4323-8 ####[facility]ORATORYCLIA [id number] [place] [address] [place] Urea nitrogen [Mass/Vol] 18 mg/dL Normal 7-21 [facility] Comment on above: Order Comment: Speci men Type: BLOOD SPECIMENOrdering Facility: [facility] Address: [address] [place] [address] Performed By: #### 2 4323-8 ####[facility]ORATORYCLIA [id number] [place] [address] [place] NUTRITIONon 01-04-2023 NUTRITION Normal [facility] THERAPY NTon 01-04-2023 THERAPY NT Normal [facility] THERAPY NT Normal [facility] THERAPY NT Normal [facility] THERAPY NT Normal [facility] THERAPY NT Normal [facility] CONSULT PROGon 01-03-2023 CONSULT PROG Normal [facility] ALLIED HEALTHon 01-02-2023 ALLIED HEALTH Normal [facility] Basic metabolic 2000 panelon 01-02-2023 Anion gap [Moles/Vol] 11 mmol/L Normal 9-18 [facility] Comment on above: Order Comment: Speci men Type: BLOOD SPECIMENOrdering Facility: [facility] Address: [address] [address] Performed By: #### 2 777-1, 50447-3, 00394-7 ####[facility]ORATORYCLIA [id number] [place] [address] [place] Calcium [Mass/Vol] 9.4 mg/dL Normal 8.5-10.2 [facility] Comment on above: Order Comment: Speci men Type: BLOOD SPECIMENOrdering Facility: [facility] Address: [address] [address] Performed By: #### 2 777-1, , ####[facility] LABORATORYCLIA [id number] [address] [id number] [place] Chloride [Moles/Vol] 103 mmol/L Normal 97-105 [facility] Comment on above: Order Comment: Speci men Type: BLOOD SPECIMENOrdering Facility: [facility] Address: [address] [place] [address] Performed By: #### 2 777-1, , ####[facility] LABORATORYCLIA [id number] [address] STATES OF [facility] CO2 [Moles/Vol] 23 mmol/L Normal 22-30 [facility] Comment on above: Order Comment: Speci men Type: BLOOD SPECIMENOrdering Facility: [facility] Address: [address] [place] [address] Performed By: #### 2 777-1, , ####[facility] LABORATORYCLIA [id number] [address] [place] Creatinine [Mass/Vol] 0.45 mg/dL Low 0.58-0.96 [facility] Comment on above: Order Comment: Speci men Type: BLOOD SPECIMENOrdering Facility: [facility] Address: [address] [place] [address] Performed By: #### 2 777-1, , ####[facility] LABORATORYCLIA [id number] [address] ESTIMATED GLOMERULAR FILTRATION RATE 103 mL/min/1.73m??? Normal >=60 [facility] Comment on above: Order Comment: Speci men Type: BLOOD SPECIMENOrdering Facility: [facility] Address: [address] [place] [address] Result Comment: Mariely mated Glomerular Filtration Rate [...] GFR. Performed By: #### 2 777-1, , ####[facility] LABORATORYCLIA [id number] [place] [id number] [place] Glucose [Mass/Vol] 110 mg/dL High 74-99 [facility] Comment on above: Order Comment: Cary lujan Type: BLOOD SPECIMENOrdering Facility: [facility] Address: [address] [phone] Result Comment: The [place] Diabetes [employer] (ADA) provides guidance for cutoff [...] Standards of Medical Care in Diabetes 2016, [place] [employer]. Diabetes Care. 2016.39(Suppl 1). Performed By: #### 2 777-, , ####[facility] LABORATORYCLIA [id number] [place] [id number] [place] Potassium [Moles/Vol] 4.3 mmol/L Normal 3.7-5.1 [facility] Comment on above: Order Comment: Cary lujan Type: BLOOD SPECIMENOrdering Facility: [facility] Address: [address] [phone] Performed By: #### 2 777-1, , 32832-5 ####[facility] LABORATORYCLIA [id number] [place] [address] [place] Sodium [Moles/Vol] 137 mmol/L Normal 136-144 [facility] Comment on above: Order Comment: Speci men Type: BLOOD SPECIMENOrdering Facility: [facility] Address: [address] [place] [address] Performed By: #### 2 777-1, , ####[facility] LABORATORYCLIA [id number] [address] STATES OF [facility] Urea nitrogen [Mass/Vol] 13 mg/dL Normal 7-21 [facility] Comment on above: Order Comment: Speci men Type: BLOOD SPECIMENOrdering Facility: [facility] Address: [address] [place] [address] Performed By: #### 2 777-1, , ####[facility] LABORATORYCLIA [id number] [address] OF [facility] CASE MANAGEMon 01-02-2023 CASE MANAGEM Normal [facility] CBC panel Auto (Bld)on 01-02 Erythrocyte distribution width (RBC) [Ratio] 14.9 % Normal 11.5-15.0 [facility] Comment on above: Order Comment: Speci men Type: BLOOD SPECIMENOrdering Facility: [facility] Address: [address] [place] [address] Performed By: #### 5 8410-2 ####[facility] LABORATORYCLIA [id number] [address] [place] Hematocrit (Bld) [Volume fraction] 31.3 % Low 36.0-46.0 [facility] Comment on above: Order Comment: Speci men Type: BLOOD SPECIMENOrdering Facility: [facility] Address: [address] [place] [address] Performed By: #### 5 8410-2 ####[facility] LABORATORYCLIA [id number] [address] [place] Hemoglobin (Bld) [Mass/Vol] 9.7 g/dL Low 11.5-15.5 [facility] Comment on above: Order Comment: Speci men Type: BLOOD SPECIMENOrdering Facility: [facility] Address: [address] [place] [address] Performed By: #### 5 8410-2 ####[facility] LABORATORYCLIA [id number] [address] MCH (RBC) [Entitic mass] 31.7 pg Normal 26.0-34.0 [facility] Comment on above: Order Comment: Speci men Type: BLOOD SPECIMENOrdering Facility: [facility] Address: [address] [place] [address] Performed By: #### 5 8410-2 ####[facility] LABORATORYCLIA [id number] [address] MCHC (RBC) [Mass/Vol] 31.0 g/dL Normal 30.5-36.0 [facility] Comment on above: Order Comment: Speci men Type: BLOOD SPECIMENOrdering Facility: [facility] Address: [address] [place] [address] Performed By: #### 5 8410-2 ####[facility] LABORATORYCLIA [id number] [address] MCV (RBC) [Entitic vol] 102.3 fL High 80.0-100.0 [facility] Comment on above: Order Comment: Speci men Type: BLOOD SPECIMENOrdering Facility: [facility] Address: [address] [place] [address] Performed By: #### 5 8410-2 ####[facility] LABORATORYCLIA [id number] [address] Nucleated RBC (Bld) [#/Vol] 10*3/uL Normal <0.01 [facility] Comment on above: Order Comment: Speci men Type: BLOOD SPECIMENOrdering Facility: [facility] Address: [address] [place] [address] Performed By: #### 5 8410-2 ####[facility] LABORATORYCLIA [id number] [address] Platelet mean volume (Bld) [Entitic vol] 10.8 fL Normal 9.0-12.7 [facility] Comment on above: Order Comment: Speci men Type: BLOOD SPECIMENOrdering Facility: [facility] Address: [address] [place] [address] Performed By: #### 5 8410-2 ####[facility] LABORATORYCLIA [id number] [address] [place] Platelets (Bld) [#/Vol] 251 10*3/uL Normal 150-400 [facility] Comment on above: Order Comment: Speci men Type: BLOOD SPECIMENOrdering Facility: [facility] Address: [address] [place] [address] Performed By: #### 5 8410-2 ####[facility] LABORATORYCLIA [id number] [address] STATES [facility] RBC (Bld) [#/Vol] 3.06 10*6/uL Low 3.90-5.20 [facility] Comment on above: Order Comment: Speci men Type: BLOOD SPECIMENOrdering Facility: [facility] Address: [address] [place] [address] Performed By: #### 5 8410-2 ####[facility] LABORATORYCLIA [id number] [address] STATES OF [facility] WBC (Bld) [#/Vol] 8.14 10*3/uL Normal 3.70-11.00 [facility] Comment on above: Order Comment: Speci men Type: BLOOD SPECIMENOrdering Facility: [facility] Address: [address] [place] [address] Performed By: #### 5 8410-2 ####[facility] LABORATORYCLIA [id number] [address] CONSULT PROGon 01-02-2023 CONSULT PROG Normal [facility] Magnesium SerPl-mCncon 01-02 Magnesium [Mass/Vol] 1.6 mg/dL Low 1.7-2.3 [facility] Comment on above: Order Comment: Speci men Type: BLOOD SPECIMENOrdering Facility: [facility] Address: [place] [address] Performed By: #### 2 777-1, , ####[facility] LABORATORYCLIA [id number] [place] [address] [place] Phosphate SerPl-mCncon 01-02 Phosphate [Mass/Vol] 3.5 mg/dL Normal 2.7-4.8 [facility] Comment on above: Order Comment: Speci men Type: BLOOD SPECIMENOrdering Facility: [facility] Address: [address] [place] [address] Performed By: #### 2 777-1, , ####[facility] LABORATORYCLIA [id number] [place] [address] [place] Basic metabolic 2000 panelon 01-01-2023 Anion gap [Moles/Vol] 9 mmol/L Normal 9-18 [facility] Comment on above: Order Comment: Speci men Type: BLOOD SPECIMENOrdering Facility: [facility] Address: [place] [address] Performed By: #### 2 4321-2, , 2776-10 ####[facility] LABORATORYCLIA [id number] [place] [address] [place] Calcium [Mass/Vol] 9.1 mg/dL Normal 8.5-10.2 [facility] Comment on above: Order Comment: Speci men Type: BLOOD SPECIMENOrdering Facility: [facility] Address: [address] [place] [address] Performed By: #### 2 4321-2, , 2776-10 ####[facility] LABORATORYCLIA [id number] [place] [address] [place] [facility] Chloride [Moles/Vol] 104 mmol/L Normal 97-105 [facility] Comment on above: Order Comment: Speci men Type: BLOOD SPECIMENOrdering Facility: [facility] Address: [address] [place] [address] Performed By: #### 2 4321-2, , 2776-10 ####[facility] HOSPITALCLIA [id number] [address] CO2 [Moles/Vol] 24 mmol/L Normal 22-30 [facility] Comment on above: Order Comment: Speci men Type: BLOOD SPECIMENOrdering Facility: [facility] Address: [address] [place] [address] Performed By: #### 2 4321-2, , 2776-10 ####[facility] HOSPITALCLIA [id number] [address] Creatinine [Mass/Vol] 0.47 mg/dL Low 0.58-0.96 [facility] Comment on above: Order Comment: Speci men Type: BLOOD SPECIMENOrdering Facility: [facility] Address: [address] [place] [address] Performed By: #### 2 4321-2, , 2776-10 ####[facility] GROVEIA [id number] [address] ESTIMATED GLOMERULAR FILTRATION RATE 102 mL/min/1.73m??? Normal >=60 [facility] Comment on above: Order Comment: Speci men Type: BLOOD SPECIMENOrdering Facility: [facility] Address: [address] [place] [address] Result Comment: Mariely mated Glomerular Filtration Rate [...] Performed By: #### 2 4321-2, , 2776-10 ####[facility] LABORATORYCLIA [id number] [place] [address] [place] Glucose [Mass/Vol] 131 mg/dL High 74-99 [facility] Comment on above: Order Comment: Cary tai Type: BLOOD SPECIMENOrdering Facility: [facility] Address: [address] [place] [address] Result Comment: The [place] Diabetes [employer] (ADA) provides guidance for cutoff [...] Standards of Medical Care in Diabetes 2016, [place] [employer]. Diabetes Care. 2016.39(Suppl 1). Performed By: #### 2 4321-2, , 2776-10 ####[facility] LABORATORYCLIA [id number] [place] [address] [place] Potassium [Moles/Vol] 4.0 mmol/L Normal 3.7-5.1 [facility] Comment on above: Order Comment: Cary lujan Type: BLOOD SPECIMENOrdering Facility: [facility] Address: [address] [place] [address] Performed By: #### 2 4321-2, , 2776-10 ####[facility] LABORATORYCLIA [id number] [place] [address] [place] Sodium [Moles/Vol] 137 mmol/L Normal 136-144 [facility] Comment on above: Order Comment: Cary tai Type: BLOOD SPECIMENOrdering Facility: [facility] Address: [address] [place] [address] Performed By: #### 2 4321-2, , 2776-10 ####[facility] LABORATORYCLIA [id number] [place] [address] [place] Urea nitrogen [Mass/Vol] 16 mg/dL Normal 7-21 [facility] Comment on above: Order Comment: Speci men Type: BLOOD SPECIMENOrdering Facility: [facility] Address: [address] [place] [address] Performed By: #### 2 4321-2, 35964-5, 2777-1 ####[facility] LABORATORYCLIA [id number] [address] STATES OF [facility] CBC panel Auto (Bld)on 01-01 Erythrocyte distribution width (RBC) [Ratio] 15.1 % High 11.5-15.0 [facility] Comment on above: Order Comment: Speci men Type: BLOOD SPECIMENOrdering Facility: [facility] Address: [address] [place] [address] Performed By: #### 5 8410-2 ####[facility] LABORATORYCLIA [id number] [address] STATES OF [facility] Hematocrit (Bld) [Volume fraction] 30.0 % Low 36.0-46.0 [facility] Comment on above: Order Comment: Speci men Type: BLOOD SPECIMENOrdering Facility: [facility] Address: [address] [place] [address] Performed By: #### 5 8410-2 ####[facility] LABORATORYCLIA [id number] [address] [place] Hemoglobin (Bld) [Mass/Vol] 9.5 g/dL Low 11.5-15.5 [facility] Comment on above: Order Comment: Speci men Type: BLOOD SPECIMENOrdering Facility: [facility] Address: [address] [place] [address] Performed By: #### 5 8410-2 ####[facility] LABORATORYCLIA [id number] [address] STATES [facility] MCH (RBC) [Entitic mass] 32.2 pg Normal 26.0-34.0 [facility] Comment on above: Order Comment: Speci men Type: BLOOD SPECIMENOrdering Facility: [facility] Address: [address] [place] [address] Performed By: #### 5 8410-2 ####[facility] LABORATORYCLIA [id number] [address] MCHC (RBC) [Mass/Vol] 31.7 g/dL Normal 30.5-36.0 [facility] Comment on above: Order Comment: Speci men Type: BLOOD SPECIMENOrdering Facility: [facility] Address: [address] [place] [address] Performed By: #### 5 8410-2 ####[facility] LABORATORYCLIA [id number] [address] MCV (RBC) [Entitic vol] 101.7 fL High 80.0-100.0 [facility] Comment on above: Order Comment: Speci men Type: BLOOD SPECIMENOrdering Facility: [facility] Address: [address] [place] [address] Performed By: #### 5 8410-2 ####[facility] LABORATORYCLIA [id number] [address] Nucleated RBC (Bld) [#/Vol] 10*3/uL Normal <0.01 [facility] Comment on above: Order Comment: Speci men Type: BLOOD SPECIMENOrdering Facility: [facility] Address: [address] [place] [address] Performed By: #### 5 8410-2 ####[facility] LABORATORYCLIA [id number] [address] Platelet mean volume (Bld) [Entitic vol] 10.4 fL Normal 9.0-12.7 [facility] Comment on above: Order Comment: Speci men Type: BLOOD SPECIMENOrdering Facility: [facility] Address: [address] [place] [address] Performed By: #### 5 8410-2 ####[facility] LABORATORYCLIA [id number] [address] Platelets (Bld) [#/Vol] 266 10*3/uL Normal 150-400 [facility] Comment on above: Order Comment: Speci men Type: BLOOD SPECIMENOrdering Facility: [facility] Address: [address] [place] [address] Performed By: #### 5 8410-2 ####[facility] LABORATORYCLIA [id number] [address] STATES OF [facility] RBC (Bld) [#/Vol] 2.95 10*6/uL Low 3.90-5.20 [facility] Comment on above: Order Comment: Speci men Type: BLOOD SPECIMENOrdering Facility: [facility] Address: [address] [place] [address] Performed By: #### 5 8410-2 ####[facility] LABORATORYCLIA [id number] [address] OF [facility] WBC (Bld) [#/Vol] 7.31 10*3/uL Normal 3.70-11.00 [facility] Comment on above: Order Comment: Speci men Type: BLOOD SPECIMENOrdering Facility: [facility] Address: [address] [place] [address] Performed By: #### 5 8410-2 ####[facility] LABORATORYCLIA [id number] [address] [place] CONSULTon 01-01-2023 CONSULT Normal [facility] Magnesium SerPl-ncon 01-01 Magnesium [Mass/Vol] 1.8 mg/dL Normal 1.7-2.3 [facility] Comment on above: Order Comment: Speci men Type: BLOOD SPECIMENOrdering Facility: [facility] Address: [address] [place] [address] Performed By: #### 2 4321-2, 81258-2, 2777-1 ####[facility] LABORATORYCLIA [id number] [address] [place] NURSING PROGon 01-01-2023 NURSING PROG Normal [facility] Phosphate SerPl-mCncon 03-21 -2023 Phosphate [Mass/Vol] 4.6 mg/dL Normal 2.7-4.8 [facility] Comment on above: Order Comment: Speci men Type: BLOOD SPECIMENOrdering Facility: [facility] Address: [place] [address] Performed By: #### 2 4321-2, 99335-3, 2777-1 ####[facility] LABORATORYCLIA [id number] [address] Bacteria Spec Resp Culton Bacteria identified Respiratory culture Nom (Unsp spec) CULTURE, RESPIRATORY: Few Normal respiratory jorge present GRAM STAIN: Rare Gram positive cocci Rare Polymorphonuclear leukocytes Rare Epithelial cells Abnormal [facility] Comment on above: Performed By: #### 3 2355-0 ####[facility] LABORATORYCLIA [id number] [address] [place] Basic metabolic 2000 panelon 12-31-2022 Anion gap [Moles/Vol] 9 mmol/L Normal 9-18 [facility] Comment on above: Order Comment: Speci men Type: BLOOD SPECIMENOrdering Facility: [facility] Address: [address] [place] [address] Performed By: #### 1 9123-9, 27704-13, 68317-2 ####[facility]PITALCLIA [id number] [place] [address] [place] Calcium [Mass/Vol] 9.1 mg/dL Normal 8.5-10.2 [facility] Comment on above: Order Comment: Speci men Type: BLOOD SPECIMENOrdering Facility: [facility] Address: [address] [place] [address] Performed By: #### 1 9123-9, 2777-1, 28828-5 ####[facility] LABORATORYCLIA [id number] [address] [place] Chloride [Moles/Vol] 106 mmol/L High 97-105 [facility] Comment on above: Order Comment: Speci men Type: BLOOD SPECIMENOrdering Facility: [facility] Address: [address] [place] [address] Performed By: #### 1 9123-9, 2777-, 73576-6 ####[facility] LABORATORYCLIA [id number] [address] STATES OF [facility] CO2 [Moles/Vol] 23 mmol/L Normal 22-30 [facility] Comment on above: Order Comment: Speci men Type: BLOOD SPECIMENOrdering Facility: [facility] Address: [address] [place] [address] Performed By: #### 1 9123-9, 27704-13, 41355-2 ####[facility] LABORATORYCLIA [id number] [address] STATES OF [facility] Creatinine [Mass/Vol] 0.45 mg/dL Low 0.58-0.96 [facility] Comment on above: Order Comment: Speci men Type: BLOOD SPECIMENOrdering Facility: [facility] Address: [address] [place] [address] Performed By: #### 1 9123-9, 27704-13, ####[facility] LABORATORYCLIA [id number] [address] ESTIMATED GLOMERULAR FILTRATION RATE 103 mL/min/1.73m??? Normal >=60 [facility] Comment on above: Order Comment: Speci men Type: BLOOD SPECIMENOrdering Facility: [facility] Address: [address] [place] [address] Result Comment: Mariely mated Glomerular Filtration Rate [...] GFR. Performed By: #### 1 9123-9, 2777-, 24379-0 ####[facility] LABORATORYCLIA [id number] [address] [place] Glucose [Mass/Vol] 124 mg/dL High 74-99 [facility] Comment on above: Order Comment: Speci men Type: BLOOD SPECIMENOrdering Facility: [facility] Address: [address] [place] [address] Result Comment: The [place] Diabetes [employer] (ADA) provides guidance for cutoff [...] Standards of Medical Care in Diabetes 2016, [place] [employer]. Diabetes Care. 2016.39(Suppl 1). Performed By: #### 1 9123-9, 2777-, 59393-1 ####[facility] LABORATORYCLIA [id number] [place] [address] [place] Potassium [Moles/Vol] 4.4 mmol/L Normal 3.7-5.1 [facility] Comment on above: Order Comment: Cary lujan Type: BLOOD SPECIMENOrdering Facility: [facility] Address: [place] [address] Performed By: #### 1 9123-9, 2777-, 76451-9 ####[facility] LABORATORYCLIA [id number] [place] [address] [place] Sodium [Moles/Vol] 138 mmol/L Normal 136-144 [facility] Comment on above: Order Comment: Speci men Type: BLOOD SPECIMENOrdering Facility: [facility] Address: [place] [address] Performed By: #### 1 9123-9, 2777-, 71931-3 ####[facility] LABORATORYCLIA [id number] [place] [address] [place] Urea nitrogen [Mass/Vol] 11 mg/dL Normal 7-21 [facility] Comment on above: Order Comment: Speci men Type: BLOOD SPECIMENOrdering Facility: [facility] Address: [address] [place] [address] Performed By: #### 1 9123-9, 2777-1, 67526-6 ####[facility] LABORATORYCLIA [id number] [address] [place] CASE MANAGEMon 12-31-2022 CASE MANAGEM Normal [facility] CBC panel Auto (Bld)on 12-31 Erythrocyte distribution width (RBC) [Ratio] 14.6 % Normal 11.5-15.0 [facility] Comment on above: Order Comment: Speci men Type: BLOOD SPECIMENOrdering Facility: [facility] Address: [address] [place] [address] Performed By: #### 5 8410-2 ####[facility] LABORATORYCLIA [id number] [address] [place] Hematocrit (Bld) [Volume fraction] 29.2 % Low 36.0-46.0 [facility] Comment on above: Order Comment: Speci men Type: BLOOD SPECIMENOrdering Facility: [facility] Address: [address] [place] [address] Performed By: #### 5 8410-2 ####[facility] LABORATORYCLIA [id number] [address] [place] Hemoglobin (Bld) [Mass/Vol] 9.4 g/dL Low 11.5-15.5 [facility] Comment on above: Order Comment: Speci men Type: BLOOD SPECIMENOrdering Facility: [facility] Address: [address] [place] [address] Performed By: #### 5 8410-2 ####[facility] LABORATORYCLIA [id number] [address] [place] MCH (RBC) [Entitic mass] 32.4 pg Normal 26.0-34.0 [facility] Comment on above: Order Comment: Speci men Type: BLOOD SPECIMENOrdering Facility: [facility] Address: [address] [place] [address] Performed By: #### 5 8410-2 ####[facility] LABORATORYCLIA [id number] [address] MCHC (RBC) [Mass/Vol] 32.2 g/dL Normal 30.5-36.0 [facility] Comment on above: Order Comment: Speci men Type: BLOOD SPECIMENOrdering Facility: [facility] Address: [address] [place] [address] Performed By: #### 5 8410-2 ####[facility] LABORATORYCLIA [id number] [address] MCV (RBC) [Entitic vol] 100.7 fL High 80.0-100.0 [facility] Comment on above: Order Comment: Speci men Type: BLOOD SPECIMENOrdering Facility: [facility] Address: [address] [place] [address] Performed By: #### 5 8410-2 ####[facility] LABORATORYCLIA [id number] [address] Nucleated RBC (Bld) [#/Vol] 10*3/uL Normal <0.01 [facility] Comment on above: Order Comment: Speci men Type: BLOOD SPECIMENOrdering Facility: [facility] Address: [address] [place] [address] Performed By: #### 5 8410-2 ####[facility] LABORATORYCLIA [id number] [address] Platelet mean volume (Bld) [Entitic vol] 10.9 fL Normal 9.0-12.7 [facility] Comment on above: Order Comment: Speci men Type: BLOOD SPECIMENOrdering Facility: [facility] Address: [address] [place] [address] Performed By: #### 5 8410-2 ####[facility] LABORATORYCLIA [id number] [address] [place] Platelets (Bld) [#/Vol] 292 10*3/uL Normal 150-400 [facility] Comment on above: Order Comment: Speci men Type: BLOOD SPECIMENOrdering Facility: [facility] Address: [place] [address] Performed By: #### 5 8410-2 ####[facility] LABORATORYCLIA [id number] [address] STATES OF [facility] RBC (Bld) [#/Vol] 2.90 10*6/uL Low 3.90-5.20 [facility] Comment on above: Order Comment: Speci men Type: BLOOD SPECIMENOrdering Facility: [facility] Address: [address] [place] [address] Performed By: #### 5 8410-2 ####[facility] LABORATORYCLIA [id number] [address] WBC (Bld) [#/Vol] 9.08 10*3/uL Normal 3.70-11.00 [facility] Comment on above: Order Comment: Speci men Type: BLOOD SPECIMENOrdering Facility: [facility] Address: [address] [place] [address] Performed By: #### 5 8410-2 ####[facility] LABORATORYCLIA [id number] [address] CONSULTon 12-31-2022 CONSULT Normal [facility] CONSULT Normal [facility] Magnesium SerPl-mCncon 12-31 Magnesium [Mass/Vol] 1.5 mg/dL Low 1.7-2.3 [facility] Comment on above: Order Comment: Speci men Type: BLOOD SPECIMENOrdering Facility: [facility] Address: [address] [place] [address] Performed By: #### 1 9123-9, 2777-1, 60045-3 ####[facility] LABORATORYCLIA [id number] [address] [place] NURSING PROGon 12-31-2022 NURSING PROG Normal [facility] NUTRITIONon 12-31-2022 NUTRITION Normal [facility] Phosphate SerPl-mCncon 12-31 Phosphate [Mass/Vol] 3.9 mg/dL Normal 2.7-4.8 [facility] Comment on above: Order Comment: Speci men Type: BLOOD SPECIMENOrdering Facility: [facility] Address: [address] [place] [address] Performed By: #### 1 9123-9, 2777-1, 68484-7 ####[facility] LABORATORYCLIA [id number] [place] [address] [place] ALLIED HEALTHon 12-30-2022 ALLIED HEALTH Normal [facility] Basic metabolic 2000 panelon 12-30-2022 Anion gap [Moles/Vol] 8 mmol/L Low 9-18 [facility] Comment on above: Order Comment: Speci men Type: BLOOD SPECIMENOrdering Facility: [facility] Address: [address] [place] [address] Performed By: #### 2 4321-2, , 2776-10 ####[facility] LABCLIA [id number] [place] [address] [place] Calcium [Mass/Vol] 9.2 mg/dL Normal 8.5-10.2 [facility] Comment on above: Order Comment: Speci men Type: BLOOD SPECIMENOrdering Facility: [facility] Address: [address] [place] [address] Performed By: #### 2 4321-2, , 2776-10 ####[facility] LABCLIA [id number] [place] [address] [place] Chloride [Moles/Vol] 103 mmol/L Normal 97-105 [facility] Comment on above: Order Comment: Speci men Type: BLOOD SPECIMENOrdering Facility: [facility] Address: [address] [place], [place] [id number] Performed By: #### 2 4321-2, , 2776-10 ####[facility] LABCLIA [id number] [place] [address] [place] CO2 [Moles/Vol] 26 mmol/L Normal 22-30 [facility] Comment on above: Order Comment: Cary lujan Type: BLOOD SPECIMENOrdering Facility: [facility] Address: [address] [place] [address] Performed By: #### 2 4321-2, , 2776-10 ####[facility] [employer] LABCLIA [id number] [place] [address] [facility] Creatinine [Mass/Vol] 0.44 mg/dL Low 0.58-0.96 [facility] Comment on above: Order Comment: Cary lujan Type: BLOOD SPECIMENOrdering Facility: [facility] Address: [address] [place] [address] Performed By: #### 2 4321-2, , 2776-10 ####[facility] LABCLIA [id number] [place] [id number] [facility] ESTIMATED GLOMERULAR FILTRATION RATE 104 mL/min/1.73m??? Normal >=60 [facility] Comment on above: Order Comment: Cary lujan Type: BLOOD SPECIMENOrdering Facility: [facility] Address: [address] [place] [address] Result Comment: Mariely mated Glomerular Filtration Rate [...] Performed By: #### 2 4321-2, , 2776-10 ####[facility] [employer] LABCLIA [id number] [place] [address] [place] Glucose [Mass/Vol] 104 mg/dL High 74-99 [facility] Comment on above: Order Comment: Cary lujan Type: BLOOD SPECIMENOrdering Facility: [facility] Address: [address] [place], [place] [id number] Result Comment: The [place] [employer] (ADA) provides guidance for cutoff [...] Standards of Medical Care in Diabetes 2016, [place] [employer]. Diabetes Care. 2016.39(Suppl 1). Performed By: #### 2 4321-2, , 2776-10 ####[facility] [employer] LABCLIA [id number] [place] [address] [place] Potassium [Moles/Vol] 4.6 mmol/L Normal 3.7-5.1 [facility] Comment on above: Order Comment: Speci men Type: BLOOD SPECIMENOrdering Facility: [facility] Address: [address] [place], [place] [address] Performed By: #### 2 4321-2, , 2776-10 ####[facility] LABCLIA [id number] [place] [address] [place] Sodium [Moles/Vol] 137 mmol/L Normal 136-144 [facility] Comment on above: Order Comment: Speci men Type: BLOOD SPECIMENOrdering Facility: [facility] Address: [address] [place] [address] Performed By: #### 2 4321-2, , 2776-10 ####[facility] LABCLIA [id number] [place] [address] [place] Urea nitrogen [Mass/Vol] 10 mg/dL Normal 7-21 [facility] Comment on above: Order Comment: Speci men Type: BLOOD SPECIMENOrdering Facility: [facility] Address: [address] [address] Performed By: #### 2 4321-2, 27063-5, 2777-1 ####[place] LABCLIA [id number] [facility]ALS[facility]NE [address] OF [facility] CBC panel Auto (Bld)on 12-30 Erythrocyte distribution width (RBC) [Ratio] 14.8 % Normal 11.5-15.0 [facility] Comment on above: Order Comment: Speci men Type: BLOOD SPECIMENOrdering Facility: [facility] Address: [address] [place] [address] Performed By: #### 5 8410-2 ####[facility] LABORATORYCLIA [id number] [address] OF [facility] Hematocrit (Bld) [Volume fraction] 29.8 % Low 36.0-46.0 [facility] Comment on above: Order Comment: Speci men Type: BLOOD SPECIMENOrdering Facility: [facility] Address: [address] [place] [address] Performed By: #### 5 8410-2 ####[facility] LABORATORYCLIA [id number] [address] OF [facility] Hemoglobin (Bld) [Mass/Vol] 9.8 g/dL Low 11.5-15.5 [facility] Comment on above: Order Comment: Speci men Type: BLOOD SPECIMENOrdering Facility: [facility] Address: [address] [place] [address] Performed By: #### 5 8410-2 ####[facility] LABORATORYCLIA [id number] [address] [place] MCH (RBC) [Entitic mass] 32.8 pg Normal 26.0-34.0 [facility] Comment on above: Order Comment: Speci men Type: BLOOD SPECIMENOrdering Facility: [facility] Address: [address] [place] [address] Performed By: #### 5 8410-2 ####[facility] LABORATORYCLIA [id number] [address] STATES OF [facility] MCHC (RBC) [Mass/Vol] 32.9 g/dL Normal 30.5-36.0 [facility] Comment on above: Order Comment: Speci men Type: BLOOD SPECIMENOrdering Facility: [facility] Address: [address] [place] [address] Performed By: #### 5 8410-2 ####[facility] LABORATORYCLIA [id number] [address] STATES [facility] MCV (RBC) [Entitic vol] 99.7 fL Normal 80.0-100.0 [facility] Comment on above: Order Comment: Speci men Type: BLOOD SPECIMENOrdering Facility: [facility] Address: [address] [place] [address] Performed By: #### 5 8410-2 ####[facility] LABORATORYCLIA [id number] [address] Nucleated RBC (Bld) [#/Vol] 10*3/uL Normal <0.01 [facility] Comment on above: Order Comment: Speci men Type: BLOOD SPECIMENOrdering Facility: [facility] Address: [address] [place] [address] Performed By: #### 5 8410-2 ####[facility] LABORATORYCLIA [id number] [address] [place] Platelet mean volume (Bld) [Entitic vol] 10.8 fL Normal 9.0-12.7 [facility] Comment on above: Order Comment: Speci men Type: BLOOD SPECIMENOrdering Facility: [facility] Address: [address] [place] [address] Performed By: #### 5 8410-2 ####[facility] LABORATORYCLIA [id number] [address] Platelets (Bld) [#/Vol] 321 10*3/uL Normal 150-400 [facility] Comment on above: Order Comment: Speci men Type: BLOOD SPECIMENOrdering Facility: [facility] Address: [address] [address] Performed By: #### 5 8410-2 ####[facility] LABORATORYCLIA [id number] [address] STATES OF [facility] RBC (Bld) [#/Vol] 2.99 10*6/uL Low 3.90-5.20 [facility] Comment on above: Order Comment: Speci men Type: BLOOD SPECIMENOrdering Facility: [facility] Address: [address] [place] [address] Performed By: #### 5 8410-2 ####[facility] LABORATORYCLIA [id number] [address] WBC (Bld) [#/Vol] 11.02 10*3/uL High 3.70-11.00 [facility] Comment on above: Order Comment: Speci men Type: BLOOD SPECIMENOrdering Facility: [facility] Address: [address] [place] [address] Performed By: #### 5 8410-2 ####[facility] LABORATORYCLIA [id number] [address] Magnesium SerPl-mCncon 12-30 Magnesium [Mass/Vol] 1.7 mg/dL Normal 1.7-2.3 [facility] Comment on above: Order Comment: Speci men Type: BLOOD SPECIMENOrdering Facility: [facility] Address: [address] [place] [address] Performed By: #### 2 4321-2, 61198-6, 2777-1 ####[facility] LABCLIA [id number] [place] [address] [place] NURSING PROGon 12-30-2022 NURSING PROG Normal [facility] NURSING PROG Normal [facility] NURSING PROG Normal [facility] Phosphate SerPl-mCncon 12-30 Phosphate [Mass/Vol] 4.5 mg/dL Normal 2.7-4.8 [facility] Comment on above: Order Comment: Speci men Type: BLOOD SPECIMENOrdering Facility: [facility] Address: [address] [place] [address] Performed By: #### 2 4321-2, , 2776-10 ####[facility] [place] [facility] LABCLIA [id number] [place] [address] [place] XR CHEST 1V FRONTALon 2022 XR CHEST 1V FRONTAL Normal [facility] ALLIED HEALTHon 12-29-2022 ALLIED HEALTH Normal [facility] Basic metabolic 2000 panelon 12-29-2022 Anion gap [Moles/Vol] 8 mmol/L Low 9-18 [facility] Comment on above: Order Comment: Speci men Type: BLOOD SPECIMENOrdering Facility: [facility] Address: [address] [place] [address] Performed By: #### 2 4321-2, , 2776-10 ####[facility] LABORATORYCLIA [id number] [place] [address] [place] Calcium [Mass/Vol] 9.1 mg/dL Normal 8.5-10.2 [facility] Comment on above: Order Comment: Speci men Type: BLOOD SPECIMENOrdering Facility: [facility] Address: [address] [place] [address] Performed By: #### 2 4321-2, , 2776-10 ####[facility] LABORATORYCLIA [id number] [place] [address] [place] Chloride [Moles/Vol] 106 mmol/L High 97-105 [facility] Comment on above: Order Comment: Speci men Type: BLOOD SPECIMENOrdering Facility: [facility] Address: [address] [place] [address] Performed By: #### 2 4321-2, , 2776-10 ####[facility]ORATORYCLIA [id number] [place] [address] [place] CO2 [Moles/Vol] 23 mmol/L Normal 22-30 [facility] Comment on above: Order Comment: Speci men Type: BLOOD SPECIMENOrdering Facility: [facility] Address: [address] [address] Performed By: #### 2 4321-2, , 2776-10 ####[facility] HOSPITALCLIA [id number] [place] [id number] [place] Creatinine [Mass/Vol] 0.43 mg/dL Low 0.58-0.96 [facility] Comment on above: Order Comment: Speci men Type: BLOOD SPECIMENOrdering Facility: [facility] Address: [address] [place] [address] Performed By: #### 2 4321-2, , 2776-10 ####[facility] GROVEIA [id number] [address] [place] ESTIMATED GLOMERULAR FILTRATION RATE 104 mL/min/1.73m??? Normal >=60 [facility] Comment on above: Order Comment: Speci men Type: BLOOD SPECIMENOrdering Facility: [facility] Address: [address] [place] [address] Result Comment: Mariely mated Glomerular Filtration Rate [...] Performed By: #### 2 4321-2, , 2776-10 ####[facility] LABORATORYCLIA [id number] [place] [id number] [place] Glucose [Mass/Vol] 110 mg/dL High 74-99 [facility] Comment on above: Order Comment: Speci men Type: BLOOD SPECIMENOrdering Facility: [facility] Address: [address] [place] [address] Result Comment: The [place] [employer] (ADA) provides guidance for cutoff [...] Standards of Medical Care in Diabetes 2016, [place] [employer]. Diabetes Care. 2016.39(Suppl 1). Performed By: #### 2 4321-2, , 2776-10 ####[facility] LABORATORYCLIA [id number] [place] [address] [place] Potassium [Moles/Vol] 4.5 mmol/L Normal 3.7-5.1 [facility] Comment on above: Order Comment: Cary lujan Type: BLOOD SPECIMENOrdering Facility: [facility] Address: [address] [place] [address] Performed By: #### 2 4320-2, , 2776-10 ####[facility] LABORATORYCLIA [id number] [place] [address] [place] Sodium [Moles/Vol] 137 mmol/L Normal 136-144 [facility] Comment on above: Order Comment: Cary lujan Type: BLOOD SPECIMENOrdering Facility: [facility] Address: [address] [place] [address] Performed By: #### 2 4320-2, , 2776-10 ####[facility] LABORATORYCLIA [id number] [place] [address] [place] Urea nitrogen [Mass/Vol] 9 mg/dL Normal 7-21 [facility] Comment on above: Order Comment: Rejii men Type: BLOOD SPECIMENOrdering Facility: [facility] Address: [address] [address] Performed By: #### 2 4321-2, , 2776-10 ####[facility] LABORATORYCLIA [id number] [address] CBC panel Auto (Bld)on 12-29 Erythrocyte distribution width (RBC) [Ratio] 14.7 % Normal 11.5-15.0 [facility] Comment on above: Order Comment: Speci men Type: BLOOD SPECIMENOrdering Facility: [facility] Address: [address] [place] [address] Performed By: #### 5 8410-2 ####[facility] LABORATORYCLIA [id number] [address] Hematocrit (Bld) [Volume fraction] 30.4 % Low 36.0-46.0 [facility] Comment on above: Order Comment: Speci men Type: BLOOD SPECIMENOrdering Facility: [facility] Address: [address] [place] [address] Performed By: #### 5 8410-2 ####[facility] LABORATORYCLIA [id number] [address] Hemoglobin (Bld) [Mass/Vol] 9.5 g/dL Low 11.5-15.5 [facility] Comment on above: Order Comment: Speci men Type: BLOOD SPECIMENOrdering Facility: [facility] Address: [address] [place] [address] Performed By: #### 5 8410-2 ####[facility] LABORATORYCLIA [id number] [address] MCH (RBC) [Entitic mass] 31.9 pg Normal 26.0-34.0 [facility] Comment on above: Order Comment: Speci men Type: BLOOD SPECIMENOrdering Facility: [facility] Address: [address] [place] [address] Performed By: #### 5 8410-2 ####[facility] LABORATORYCLIA [id number] [address] MCHC (RBC) [Mass/Vol] 31.3 g/dL Normal 30.5-36.0 [facility] Comment on above: Order Comment: Speci men Type: BLOOD SPECIMENOrdering Facility: [facility] Address: [address] [address] Performed By: #### 5 8410-2 ####[facility] LABORATORYCLIA [id number] [address] MCV (RBC) [Entitic vol] 102.0 fL High 80.0-100.0 [facility] Comment on above: Order Comment: Speci men Type: BLOOD SPECIMENOrdering Facility: [facility] Address: [address] [place] [address] Performed By: #### 5 8410-2 ####[facility] LABORATORYCLIA [id number] [address] Nucleated RBC (Bld) [#/Vol] 10*3/uL Normal <0.01 [facility] Comment on above: Order Comment: Speci men Type: BLOOD SPECIMENOrdering Facility: [facility] Address: [address] [place] [address] Performed By: #### 5 8410-2 ####[facility] LABORATORYCLIA [id number] [address] [place] Platelet mean volume (Bld) [Entitic vol] 10.8 fL Normal 9.0-12.7 [facility] Comment on above: Order Comment: Speci men Type: BLOOD SPECIMENOrdering Facility: [facility] Address: [address] [place] [address] Performed By: #### 5 8410-2 ####[facility] LABORATORYCLIA [id number] [address] OF [facility] Platelets (Bld) [#/Vol] 332 10*3/uL Normal 150-400 [facility] Comment on above: Order Comment: Speci men Type: BLOOD SPECIMENOrdering Facility: [facility] Address: [address] [place] [address] Performed By: #### 5 8410-2 ####[facility] LABORATORYCLIA [id number] [address] [place] RBC (Bld) [#/Vol] 2.98 10*6/uL Low 3.90-5.20 [facility] Comment on above: Order Comment: Speci men Type: BLOOD SPECIMENOrdering Facility: [facility] Address: [address] [place] [address] Performed By: #### 5 8410-2 ####[facility] LABORATORYCLIA [id number] [address] [place] WBC (Bld) [#/Vol] 11.22 10*3/uL High 3.70-11.00 [facility] Comment on above: Order Comment: Speci men Type: BLOOD SPECIMENOrdering Facility: [facility] Address: [address] [place] [address] Performed By: #### 5 8410-2 ####[facility] LABORATORYCLIA [id number] [address] [place] MRI BRAIN WO/W IVCONon 12-29 MRI BRAIN WO/W IVCON Normal [facility] Magnesium SerPl-mCncon 12-29 Magnesium [Mass/Vol] 1.6 mg/dL Low 1.7-2.3 [facility] Comment on above: Order Comment: Speci men Type: BLOOD SPECIMENOrdering Facility: [facility] Address: [address] [place] [address] Performed By: #### 2 4321-2, , 2776-10 ####[facility] LABORATORYCLIA [id number] [address] [place] Phosphate SerPl-mCncon 12-29 Phosphate [Mass/Vol] 4.2 mg/dL Normal 2.7-4.8 [facility] Comment on above: Order Comment: Speci men Type: BLOOD SPECIMENOrdering Facility: [facility] Address: [address] [place] [address] Performed By: #### 2 4321-2, 84221-3, 2777- ####[facility] LABORATORYCLIA [id number] [place] [address] [place] Basic metabolic 2000 panelon 12-28-2022 Anion gap [Moles/Vol] 9 mmol/L Normal 9-18 [facility] Comment on above: Order Comment: Speci men Type: BLOOD SPECIMENOrdering Facility: [facility] Address: [address] [place] [address] Performed By: #### 2 777-1, 73112-8, ####[facility] LABORATORYCLIA [id number] [place] [address] [place] Calcium [Mass/Vol] 8.7 mg/dL Normal 8.5-10.2 [facility] Comment on above: Order Comment: Speci men Type: BLOOD SPECIMENOrdering Facility: [facility] Address: [address] [place] [address] Performed By: #### 2 777-1, 82905-2, ####[facility] LABORATORYCLIA [id number] [place] [address] [place] Chloride [Moles/Vol] 107 mmol/L High 97-105 [facility] Comment on above: Order Comment: Speci men Type: BLOOD SPECIMENOrdering Facility: [facility] Address: [address] [place] [address] Performed By: #### 2 777-1, 38225-1, ####[facility] LABORATORYCLIA [id number] [place] [address] [place] CO2 [Moles/Vol] 22 mmol/L Normal 22-30 [facility] Comment on above: Order Comment: Speci men Type: BLOOD SPECIMENOrdering Facility: [facility] Address: [address] [place] [address] Performed By: #### 2 777-1, 40593-7, ####[facility] LABORATORYCLIA [id number] [place] [address] [place] Creatinine [Mass/Vol] 0.44 mg/dL Low 0.58-0.96 [facility] Comment on above: Order Comment: Speci men Type: BLOOD SPECIMENOrdering Facility: [facility] Address: [address] [phone] Performed By: #### 2 777-1, 54871-5, ####[facility] LABORATORYCLIA [id number] [address] [place] ESTIMATED GLOMERULAR FILTRATION RATE 104 mL/min/1.73m??? Normal >=60 [facility] Comment on above: Order Comment: Rejicy lujan Type: BLOOD SPECIMENOrdering Facility: [facility] Address: [address] [place] [phone] Result Comment: Mariely mated Glomerular Filtration Rate [...] actual GFR. Performed By: #### 2 777-1, 30730-5, ####[facility] LABORATORYCLIA [id number] [place] [address] [place] Glucose [Mass/Vol] 114 mg/dL High 74-99 [facility] Comment on above: Order Comment: Cary lujan Type: BLOOD SPECIMENOrdering Facility: [facility] Address: [address] [place] [address] Result Comment: The [place] [employer] (ADA) provides guidance for cutoff [...] Standards of Medical Care in Diabetes 2016, [place] [employer]. Diabetes Care. 2016.39(Suppl 1). Performed By: #### 2 777-1, 60170-0, ####[facility] LABORATORYCLIA [id number] [place] [address] [place] Potassium [Moles/Vol] 4.1 mmol/L Normal 3.7-5.1 [facility] Comment on above: Order Comment: Speci men Type: BLOOD SPECIMENOrdering Facility: [facility] Address: [address] [place] [address] Performed By: #### 2 777-1, 81608-8, ####[facility] LABORATORYCLIA [id number] [address] [place] Sodium [Moles/Vol] 138 mmol/L Normal 136-144 [facility] Comment on above: Order Comment: Speci men Type: BLOOD SPECIMENOrdering Facility: [facility] Address: [address] [place] [address] Performed By: #### 2 777-1, , ####[facility] LABORATORYCLIA [id number] [place] [address] [place] Urea nitrogen [Mass/Vol] 9 mg/dL Normal 7-21 [facility] Comment on above: Order Comment: Speci men Type: BLOOD SPECIMENOrdering Facility: [facility] Address: [address] [place] [address] Performed By: #### 2 777-1, , ####[facility] LABORATORYCLIA [id number] [place] [address] [place] CASE MANAGEMon 12-28-2022 CASE MANAGEM Normal [facility] CBC panel Auto (Bld)on 12-28 Erythrocyte distribution width (RBC) [Ratio] 14.7 % Normal 11.5-15.0 [facility] Comment on above: Order Comment: Speci men Type: BLOOD SPECIMENOrdering Facility: [facility] Address: [address] [place] [address] Performed By: #### 5 8410-2 ####[facility] LABORATORYCLIA [id number] [address] STATES OF [facility] Hematocrit (Bld) [Volume fraction] 29.9 % Low 36.0-46.0 [facility] Comment on above: Order Comment: Speci men Type: BLOOD SPECIMENOrdering Facility: [facility] Address: [address] [place] [address] Performed By: #### 5 8410-2 ####[facility] LABORATORYCLIA [id number] [address] OF [facility] Hemoglobin (Bld) [Mass/Vol] 9.5 g/dL Low 11.5-15.5 [facility] Comment on above: Order Comment: Speci men Type: BLOOD SPECIMENOrdering Facility: [facility] Address: [address] [place] [address] Performed By: #### 5 8410-2 ####[facility] LABORATORYCLIA [id number] [address] MCH (RBC) [Entitic mass] 32.2 pg Normal 26.0-34.0 [facility] Comment on above: Order Comment: Speci men Type: BLOOD SPECIMENOrdering Facility: [facility] Address: [address] [place] [address] Performed By: #### 5 8410-2 ####[facility] LABORATORYCLIA [id number] [address] [place] MCHC (RBC) [Mass/Vol] 31.8 g/dL Normal 30.5-36.0 [facility] Comment on above: Order Comment: Speci men Type: BLOOD SPECIMENOrdering Facility: [facility] Address: [address] [place] [address] Performed By: #### 5 8410-2 ####[facility] LABORATORYCLIA [id number] [address] [place] MCV (RBC) [Entitic vol] 101.4 fL High 80.0-100.0 [facility] Comment on above: Order Comment: Speci men Type: BLOOD SPECIMENOrdering Facility: [facility] Address: [address] [address] Performed By: #### 5 8410-2 ####[facility] LABORATORYCLIA [id number] [address] [place] Nucleated RBC (Bld) [#/Vol] 10*3/uL Normal <0.01 [facility] Comment on above: Order Comment: Speci men Type: BLOOD SPECIMENOrdering Facility: [facility] Address: [address] [address] Performed By: #### 5 8410-2 ####[facility] LABORATORYCLIA [id number] [address] [place] Platelet mean volume (Bld) [Entitic vol] 10.8 fL Normal 9.0-12.7 [facility] Comment on above: Order Comment: Speci men Type: BLOOD SPECIMENOrdering Facility: [facility] Address: [address] [address] Performed By: #### 5 8410-2 ####[facility] LABORATORYCLIA [id number] [address] [place] Platelets (Bld) [#/Vol] 333 10*3/uL Normal 150-400 [facility] Comment on above: Order Comment: Speci men Type: BLOOD SPECIMENOrdering Facility: [facility] Address: [address] [address] Performed By: #### 5 8410-2 ####[facility] LABORATORYCLIA [id number] [address] [place] RBC (Bld) [#/Vol] 2.95 10*6/uL Low 3.90-5.20 [facility] Comment on above: Order Comment: Speci men Type: BLOOD SPECIMENOrdering Facility: [facility] Address: [address] [place] [address] Performed By: #### 5 8410-2 ####[facility] LABORATORYCLIA [id number] [address] OF [place] WBC (Bld) [#/Vol] 11.00 10*3/uL Normal 3.70-11.00 [facility] Comment on above: Order Comment: Speci men Type: BLOOD SPECIMENOrdering Facility: [facility] Address: [address] [place] [address] Performed By: #### 5 8410-2 ####[facility] LABORATORYCLIA [id number] [address] OF [place] CONSULTon 12-28-2022 CONSULT Normal [facility] Magnesium SerPl-mCncon 12-28 Magnesium [Mass/Vol] 1.7 mg/dL Normal 1.7-2.3 [facility] Comment on above: Order Comment: Speci men Type: BLOOD SPECIMENOrdering Facility: [facility] Address: [address] [place] [address] Performed By: #### 2 777-1, 28430-6, 98867-8 ####[facility] LABORATORYCLIA [id number] [address] Phosphate SerPl-mCncon 12-28 Phosphate [Mass/Vol] 3.7 mg/dL Normal 2.7-4.8 [facility] Comment on above: Order Comment: Speci men Type: BLOOD SPECIMENOrdering Facility: [facility] Address: [address] [place] [address] Performed By: #### 2 777-1, 03812-5, ####[facility] LABORATORYCLIA [id number] [address] [place] ALLIED HEALTHon 12-27-2022 ALLIED HEALTH Normal [facility] ARTERIAL BLOOD GASESon 12-27 Base excess Calc (Bld) [Moles/Vol] 0 mmol/L Normal 0-2 [facility] Comment on above: Order Comment: Speci men Type: ARTERIAL BLOOD SPECIMENOrdering Facility: [facility] Address: [address] [place] [address] Performed By: #### A LLBG ####[facility] LABORATORYCLIA [id number] [address] Body temperature 96.8 [degF] Normal [facility] Comment on above: Order Comment: Speci men Type: ARTERIAL BLOOD SPECIMENOrdering Facility: [facility] Address: [address] [place] [address] Performed By: #### A LLBG ####[facility] LABORATORYCLIA [id number] [address] Calcium.ionized (BldV) [Mass/Vol] 1.18 mmol/L Normal 1.08-1.30 [facility] Comment on above: Order Comment: Speci men Type: ARTERIAL BLOOD SPECIMENOrdering Facility: [facility] Address: [address] [place] [address] Performed By: #### A LLBG ####[facility] LABORATORYCLIA [id number] [address] Calcium.ionized adjusted to pH 7.4 (BldA) [Moles/Vol] 1.20 mmol/L Normal 1.08-1.30 [facility] Comment on above: Order Comment: Speci men Type: ARTERIAL BLOOD SPECIMENOrdering Facility: [facility] Address: [address] [place] [address] Performed By: #### A LLBG ####[facility] LABORATORYCLIA [id number] [address] Carboxyhemoglobin (BldA) [Mass fraction] 1.2 % Normal 0.0-2.0 [facility] Comment on above: Order Comment: Speci men Type: ARTERIAL BLOOD SPECIMENOrdering Facility: [facility] Address: [address] [place] [address] Result Comment: Carb oxyhemoglobin Reference Range for Smokers: 2.0-8.0% Performed By: #### A LLBG ####[facility] LABORATORYCLIA [id number] [address] OF [facility] Chloride [Moles/Vol] 109 mmol/L Normal 102-109 [facility] Comment on above: Order Comment: Speci men Type: ARTERIAL BLOOD SPECIMENOrdering Facility: [facility] Address: [address] [place] [address] Performed By: #### A LLBG ####[facility] LABORATORYCLIA [id number] [address] CO2 (Bld) [Partial pressure] 38 mm Hg Normal 36-46 [facility] Comment on above: Order Comment: Speci men Type: ARTERIAL BLOOD SPECIMENOrdering Facility: [facility] Address: [address] [place] [address] Performed By: #### A LLBG ####[facility] LABORATORYCLIA [id number] [address] CO2 [Moles/Vol] 22 mmol/L Normal 22-28 [facility] Comment on above: Order Comment: Speci men Type: ARTERIAL BLOOD SPECIMENOrdering Facility: [facility] Address: [address] [place] [address] Performed By: #### A LLBG ####[facility] LABORATORYCLIA [id number] [address] CO2 adjusted to patient's actual temperature (Bld) [Partial pressure] 36 mmHg Normal 36-46 [facility] Comment on above: Order Comment: Speci men Type: ARTERIAL BLOOD SPECIMENOrdering Facility: [facility] Address: [address] [place] [address] Performed By: #### A LLBG ####[facility] LABORATORYCLIA [id number] [address] [place] FIO2 30 % Normal [facility] Comment on above: Order Comment: Speci men Type: ARTERIAL BLOOD SPECIMENOrdering Facility: [facility] Address: [address] [place] [address] Performed By: #### A LLBG ####[facility] LABORATORYCLIA [id number] [address] [place] Glucose [Mass/Vol] 123 mg/dL High 60-105 [facility] Comment on above: Order Comment: Speci men Type: ARTERIAL BLOOD SPECIMENOrdering Facility: [facility] Address: [address] [place] [address] Performed By: #### A LLBG ####[facility] LABORATORYCLIA [id number] [address] [place] HCO3 (Bld) [Moles/Vol] 24 mmol/L Normal 22-26 [facility] Comment on above: Order Comment: Speci men Type: ARTERIAL BLOOD SPECIMENOrdering Facility: [facility] Address: [address] [place] [address] Performed By: #### A LLBG ####[facility] LABORATORYCLIA [id number] [address] Hematocrit (Bld) [Volume fraction] 30.4 % Low 36.0-46.0 [facility] Comment on above: Order Comment: Speci men Type: ARTERIAL BLOOD SPECIMENOrdering Facility: [facility] Address: [address] [place] [address] Performed By: #### A LLBG ####[facility] LABORATORYCLIA [id number] [address] Hemoglobin (Bld) [Mass/Vol] 9.8 g/dL Low 11.5-15.5 [facility] Comment on above: Order Comment: Speci men Type: ARTERIAL BLOOD SPECIMENOrdering Facility: [facility] Address: [address] [place] [address] Performed By: #### A LLBG ####[facility] LABORATORYCLIA [id number] [address] STATES [facility] Lactate [Moles/Vol] 0.7 mmol/L Normal 0.5-2.2 [facility] Comment on above: Order Comment: Speci men Type: ARTERIAL BLOOD SPECIMENOrdering Facility: [facility] Address: [address] [place] [address] Performed By: #### A LLBG ####[facility] LABORATORYCLIA [id number] [address] [place] Methemoglobin (Bld) [Mass fraction] % Normal 0.0-1.5 [facility] Comment on above: Order Comment: Speci men Type: ARTERIAL BLOOD SPECIMENOrdering Facility: [facility] Address: [address] [address] Performed By: #### A LLBG ####[facility] LABORATORYCLIA [id number] [address] O2 THERAPY Ventilator Normal [facility] Comment on above: Order Comment: Speci men Type: ARTERIAL BLOOD SPECIMENOrdering Facility: [facility] Address: [address] [place] [address] Performed By: #### A LLBG ####[facility] LABORATORYCLIA [id number] [address] Oxygen (Bld) [Partial pressure] 94 mm Hg Normal 85-95 [facility] Comment on above: Order Comment: Speci men Type: ARTERIAL BLOOD SPECIMENOrdering Facility: [facility] Address: [address] [place] [address] Performed By: #### A LLBG ####[facility] LABORATORYCLIA [id number] [address] Oxygen adjusted to patient's actual temperature (Bld) [Partial pressure] 89 mmHg Normal 85-95 [facility] Comment on above: Order Comment: Speci men Type: ARTERIAL BLOOD SPECIMENOrdering Facility: [facility] Address: [address] [place] [address] Performed By: #### A LLBG ####[facility] LABORATORYCLIA [id number] [address] [place] Oxyhemoglobin (BldA) [Mass fraction] 95 % Normal 95-98 [facility] Comment on above: Order Comment: Speci men Type: ARTERIAL BLOOD SPECIMENOrdering Facility: [facility] Address: [address] [address] Performed By: #### A LLBG ####[facility] LABORATORYCLIA [id number] [address] PEEP/CPAP 5 cmH2O Normal [facility] Comment on above: Order Comment: Speci men Type: ARTERIAL BLOOD SPECIMENOrdering Facility: [facility] Address: [address] [place] [address] Result Comment: CPAP Performed By: #### A LLBG ####[facility]ORATORYCLIA [id number] [address] [place] pH (Bld) 7.42 [pH] Normal 7.35-7.45 [facility] Comment on above: Order Comment: Speci men Type: ARTERIAL BLOOD SPECIMENOrdering Facility: [facility] Address: [address] [place] [address] Performed By: #### A LLBG ####[facility] LABORATORYCLIA [id number] [address] pH adjusted to patient's actual temperature (Bld) 7.44 Normal 7.35-7.45 [facility] Comment on above: Order Comment: Speci men Type: ARTERIAL BLOOD SPECIMENOrdering Facility: [facility] Address: [address] [place] [address] Performed By: #### A LLBG ####[facility] LABORATORYCLIA [id number] [address] [place] Potassium [Moles/Vol] 4.1 mmol/L Normal 3.5-5.0 [facility] Comment on above: Order Comment: Speci men Type: ARTERIAL BLOOD SPECIMENOrdering Facility: [facility] Address: [address] [place] [address] Performed By: #### A LLBG ####[facility] LABORATORYCLIA [id number] [address] [place] Sodium [Moles/Vol] 139 mmol/L Normal 136-144 [facility] Comment on above: Order Comment: Speci men Type: ARTERIAL BLOOD SPECIMENOrdering Facility: [facility] Address: [address] [place] [address] Performed By: #### A LLBG ####[facility] LABORATORYCLIA [id number] [place] [address] [place] Basic metabolic 2000 panelon 12-27-2022 Anion gap [Moles/Vol] 7 mmol/L Low 9-18 [facility] Comment on above: Order Comment: Speci men Type: BLOOD SPECIMENOrdering Facility: [facility] Address: [address] [place] [address] Performed By: #### 2 4321-2, , 2776-10 ####[facility] LABORATORYCLIA [id number] [place] [address] [place] Calcium [Mass/Vol] 8.8 mg/dL Normal 8.5-10.2 [facility] Comment on above: Order Comment: Speci men Type: BLOOD SPECIMENOrdering Facility: [facility] Address: [address] [place] [address] Performed By: #### 2 432-2, , 2776-10 ####[facility] LABORATORYCLIA [id number] [address] [place] Chloride [Moles/Vol] 107 mmol/L High 97-105 [facility] Comment on above: Order Comment: Speci men Type: BLOOD SPECIMENOrdering Facility: [facility] Address: [address] [place] [address] Performed By: #### 2 4321-2, , 2776-10 ####[facility] LABORATORYCLIA [id number] [place] [address] [place] CO2 [Moles/Vol] 23 mmol/L Normal 22-30 [facility] Comment on above: Order Comment: Speci men Type: BLOOD SPECIMENOrdering Facility: [facility] Address: [address] [place] [address] Performed By: #### 2 4321-2, , 2776-10 ####[facility] LABORATORYCLIA [id number] [place] [address] [place] Creatinine [Mass/Vol] 0.45 mg/dL Low 0.58-0.96 [facility] Comment on above: Order Comment: Cary lujan Type: BLOOD SPECIMENOrdering Facility: [facility] Address: [place] [address] Performed By: #### 2 4321-2, 20273-9, 2776-10 ####[facility] LABORATORYCLIA [id number] [place] [address] [facility] ESTIMATED GLOMERULAR FILTRATION RATE 103 mL/min/1.73m??? Normal >=60 [facility] Comment on above: Order Comment: Cary lujan Type: BLOOD SPECIMENOrdering Facility: [facility] Address: [address] [address] Result Comment: Mariely mated Glomerular Filtration Rate [...] Performed By: #### 2 4321-2, , 2776-10 ####[facility] LABORATORYCLIA [id number] [place] [id number] [place] Glucose [Mass/Vol] 106 mg/dL High 74-99 [facility] Comment on above: Order Comment: Cary lujan Type: BLOOD SPECIMENOrdering Facility: [facility] Address: [address] [place] [address] Result Comment: The [place] [employer] (ADA) provides guidance for cutoff [...] Standards of Medical Care in Diabetes 2016, [place] [employer]. Diabetes Care. 2016.39(Suppl 1). Performed By: #### 2 4321-2, 10776-1, 2776- ####[facility] LABORATORYCLIA [id number] [place] [address] [place] Potassium [Moles/Vol] 4.3 mmol/L Normal 3.7-5.1 [facility] Comment on above: Order Comment: Speci men Type: BLOOD SPECIMENOrdering Facility: [facility] Address: [address] [address] Performed By: #### 2 4321-2, , 2776-10 ####[facility] LABORATORYCLIA [id number] [address] STATES OF [facility] Sodium [Moles/Vol] 137 mmol/L Normal 136-144 [facility] Comment on above: Order Comment: Speci men Type: BLOOD SPECIMENOrdering Facility: [facility] Address: [address] [address] Performed By: #### 2 4321-2, , 2776-10 ####[facility] LABORATORYCLIA [id number] [address] [place] Urea nitrogen [Mass/Vol] 7 mg/dL Normal 7-21 [facility] Comment on above: Order Comment: Speci men Type: BLOOD SPECIMENOrdering Facility: [facility] Address: [address] [address] Performed By: #### 2 4321-2, , 27704-13 ####[facility] LABORATORYCLIA [id number] [place] [address] [place] CBC panel Auto (Bld)on 12-27 Erythrocyte distribution width (RBC) [Ratio] 14.6 % Normal 11.5-15.0 [facility] Comment on above: Order Comment: Speci men Type: BLOOD SPECIMENOrdering Facility: [facility] Address: [address] [address] Performed By: #### 5 8410-2 ####[facility] LABORATORYCLIA [id number] [address] STATES OF [facility] Hematocrit (Bld) [Volume fraction] 29.7 % Low 36.0-46.0 [facility] Comment on above: Order Comment: Speci men Type: BLOOD SPECIMENOrdering Facility: [facility] Address: [address] [place] [address] Performed By: #### 5 8410-2 ####[facility] LABORATORYCLIA [id number] [address] OF [facility] Hemoglobin (Bld) [Mass/Vol] 9.6 g/dL Low 11.5-15.5 [facility] Comment on above: Order Comment: Speci men Type: BLOOD SPECIMENOrdering Facility: [facility] Address: [address] [place] [address] Performed By: #### 5 8410-2 ####[facility] LABORATORYCLIA [id number] [address] MCH (RBC) [Entitic mass] 32.4 pg Normal 26.0-34.0 [facility] Comment on above: Order Comment: Speci men Type: BLOOD SPECIMENOrdering Facility: [facility] Address: [address] [place] [address] Performed By: #### 5 8410-2 ####[facility] LABORATORYCLIA [id number] [address] [place] MCHC (RBC) [Mass/Vol] 32.3 g/dL Normal 30.5-36.0 [facility] Comment on above: Order Comment: Speci men Type: BLOOD SPECIMENOrdering Facility: [facility] Address: [address] [place] [address] Performed By: #### 5 8410-2 ####[facility] LABORATORYCLIA [id number] [address] [place] MCV (RBC) [Entitic vol] 100.3 fL High 80.0-100.0 [facility] Comment on above: Order Comment: Speci men Type: BLOOD SPECIMENOrdering Facility: [facility] Address: [address] [address] Performed By: #### 5 8410-2 ####[facility] LABORATORYCLIA [id number] [address] Nucleated RBC (Bld) [#/Vol] 10*3/uL Normal <0.01 [facility] Comment on above: Order Comment: Speci men Type: BLOOD SPECIMENOrdering Facility: [facility] Address: [address] [address] Performed By: #### 5 8410-2 ####[facility] LABORATORYCLIA [id number] [address] [place] Platelet mean volume (Bld) [Entitic vol] 11.0 fL Normal 9.0-12.7 [facility] Comment on above: Order Comment: Speci men Type: BLOOD SPECIMENOrdering Facility: [facility] Address: [address] [address] Performed By: #### 5 8410-2 ####[facility] LABORATORYCLIA [id number] [address] OF [facility] Platelets (Bld) [#/Vol] 330 10*3/uL Normal 150-400 [facility] Comment on above: Order Comment: Speci men Type: BLOOD SPECIMENOrdering Facility: [facility] Address: [address] [address] Performed By: #### 5 8410-2 ####[facility] LABORATORYCLIA [id number] [address] [place] RBC (Bld) [#/Vol] 2.96 10*6/uL Low 3.90-5.20 [facility] Comment on above: Order Comment: Speci men Type: BLOOD SPECIMENOrdering Facility: [facility] Address: [address] [place] [address] Performed By: #### 5 8410-2 ####[facility] LABORATORYCLIA [id number] [place] [address] [place] WBC (Bld) [#/Vol] 9.89 10*3/uL Normal 3.70-11.00 [facility] Comment on above: Order Comment: Speci men Type: BLOOD SPECIMENOrdering Facility: [facility] Address: [address] [place] [address] Performed By: #### 5 8410-2 ####[facility] LABORATORYCLIA [id number] [address] [place] Magnesium SerPl-mCncon 12-27 Magnesium [Mass/Vol] 1.6 mg/dL Low 1.7-2.3 [facility] Comment on above: Order Comment: Speci men Type: BLOOD SPECIMENOrdering Facility: [facility] Address: [address] [place] [address] Performed By: #### 2 4321-2, 67354-1, 2777-1 ####[facility] LABORATORYCLIA [id number] [address] [place] NURSING PROGon 12-27-2022 NURSING PROG Normal [facility] NUTRITIONon 12-27-2022 NUTRITION Normal [facility] Phenobarb SerPl-mCncon 12-27 PHENobarbital [Mass/Vol] 27.9 ug/mL Normal 10.0-40.0 [facility] Comment on above: Order Comment: Speci men Type: BLOOD SPECIMENOrdering Facility: [facility] Address: [address] [place] [address] Result Comment: Refe rence ranges and high/low indicator flags are provided as general guidelines only. The treating physician must determine appropriate target levels/dosing based on the specific clinical situation. Performed By: #### 3 948-7 ####[facility] LABORATORYCLIA [id number] [place] [address] [place] Phosphate SerPl-mCncon 12-27 Phosphate [Mass/Vol] 3.5 mg/dL Normal 2.7-4.8 [facility] Comment on above: Order Comment: Speci men Type: BLOOD SPECIMENOrdering Facility: [facility] Address: [address] [address] Performed By: #### 2 4321-2, 19853-5, 2777-1 ####[facility] LABORATORYCLIA [id number] [place] [address] [place] ALLIED HEALTHon 12-26-2022 ALLIED HEALTH Normal [facility] ARTERIAL BLOOD GASESon 12-26 Base deficit (BldA) [Moles/Vol] -1 mmol/L Normal -2-0 [facility] Comment on above: Order Comment: Speci men Type: ARTERIAL BLOOD SPECIMENOrdering Facility: [facility] Address: [address] [place] [address] Performed By: #### A LLBG ####[facility] LABORATORYCLIA [id number] [address] [place] Body temperature 97.52 [degF] Normal [facility] Comment on above: Order Comment: Speci men Type: ARTERIAL BLOOD SPECIMENOrdering Facility: [facility] Address: [address] [place] [address] Performed By: #### A LLBG ####[facility] LABORATORYCLIA [id number] [address] [place] Calcium.ionized (BldV) [Mass/Vol] 1.20 mmol/L Normal 1.08-1.30 [facility] Comment on above: Order Comment: Speci men Type: ARTERIAL BLOOD SPECIMENOrdering Facility: [facility] Address: [address] [place] [address] Performed By: #### A LLBG ####[facility] LABORATORYCLIA [id number] [address] [place] Calcium.ionized adjusted to pH 7.4 (BldA) [Moles/Vol] 1.21 mmol/L Normal 1.08-1.30 [facility] Comment on above: Order Comment: Speci men Type: ARTERIAL BLOOD SPECIMENOrdering Facility: [facility] Address: [address] [place] [address] Performed By: #### A LLBG ####[facility] LABORATORYCLIA [id number] [place] [address] [place] Carboxyhemoglobin (BldA) [Mass fraction] 1.2 % Normal 0.0-2.0 [facility] Comment on above: Order Comment: Speci men Type: ARTERIAL BLOOD SPECIMENOrdering Facility: [facility] Address: [address] [place] [address] Result Comment: Carb oxyhemoglobin Reference Range for Smokers: 2.0-8.0% Performed By: #### A LLBG ####[facility] LABORATORYCLIA [id number] [place] [address] [place] Chloride [Moles/Vol] 111 mmol/L High 102-109 [facility] Comment on above: Order Comment: Speci men Type: ARTERIAL BLOOD SPECIMENOrdering Facility: [facility] Address: [address] [place] [address] Performed By: #### A LLBG ####[facility] LABORATORYCLIA [id number] [address] [place] CO2 (Bld) [Partial pressure] 35 mm Hg Low 36-46 [facility] Comment on above: Order Comment: Speci men Type: ARTERIAL BLOOD SPECIMENOrdering Facility: [facility] Address: [address] [place] [address] Performed By: #### A LLBG ####[facility] LABORATORYCLIA [id number] [place] [address] [place] CO2 [Moles/Vol] 21 mmol/L Low 22-28 [facility] Comment on above: Order Comment: Speci men Type: ARTERIAL BLOOD SPECIMENOrdering Facility: [facility] Address: [address] [place] [address] Performed By: #### A LLBG ####[facility] LABORATORYCLIA [id number] [place] [address] [place] CO2 adjusted to patient's actual temperature (Bld) [Partial pressure] 34 mmHg Low 36-46 [facility] Comment on above: Order Comment: Speci men Type: ARTERIAL BLOOD SPECIMENOrdering Facility: [facility] Address: [address] [address] Performed By: #### A LLBG ####[facility] LABORATORYCLIA [id number] [address] [place] Glucose [Mass/Vol] 135 mg/dL High 60-105 [facility] Comment on above: Order Comment: Speci men Type: ARTERIAL BLOOD SPECIMENOrdering Facility: [facility] Address: [address] [place] [address] Performed By: #### A LLBG ####[facility] LABORATORYCLIA [id number] [address] [place] HCO3 (Bld) [Moles/Vol] 22 mmol/L Normal 22-26 [facility] Comment on above: Order Comment: Speci men Type: ARTERIAL BLOOD SPECIMENOrdering Facility: [facility] Address: [address] [place] [address] Performed By: #### A LLBG ####[facility] LABORATORYCLIA [id number] [address] [place] Hematocrit (Bld) [Volume fraction] 29.7 % Low 36.0-46.0 [facility] Comment on above: Order Comment: Speci men Type: ARTERIAL BLOOD SPECIMENOrdering Facility: [facility] Address: [address] [place] [address] Performed By: #### A LLBG ####[facility] LABORATORYCLIA [id number] [address] [place] Hemoglobin (Bld) [Mass/Vol] 9.6 g/dL Low 11.5-15.5 [facility] Comment on above: Order Comment: Speci men Type: ARTERIAL BLOOD SPECIMENOrdering Facility: [facility] Address: [address] [place] [address] Performed By: #### A LLBG ####[facility] LABORATORYCLIA [id number] [address] [place] Lactate [Moles/Vol] 1.1 mmol/L Normal 0.5-2.2 [facility] Comment on above: Order Comment: Speci men Type: ARTERIAL BLOOD SPECIMENOrdering Facility: [facility] Address: [address] [place] [address] Performed By: #### A LLBG ####[facility]ORATORYCLIA [id number] [address] Methemoglobin (Bld) [Mass fraction] % Normal 0.0-1.5 [facility] Comment on above: Order Comment: Speci men Type: ARTERIAL BLOOD SPECIMENOrdering Facility: [facility] Address: [address] [place] [address] Performed By: #### A LLBG ####[facility] LABORATORYCLIA [id number] [address] O2 THERAPY Ventilator Normal [facility] Comment on above: Order Comment: Speci men Type: ARTERIAL BLOOD SPECIMENOrdering Facility: [facility] Address: [address] [place] [address] Performed By: #### A LLBG ####[facility] LABORATORYCLIA [id number] [address] Oxygen (Bld) [Partial pressure] 90 mm Hg Normal 85-95 [facility] Comment on above: Order Comment: Speci men Type: ARTERIAL BLOOD SPECIMENOrdering Facility: [facility] Address: [address] [place] [address] Performed By: #### A LLBG ####[facility]ORATORYCLIA [id number] [address] Oxygen adjusted to patient's actual temperature (Bld) [Partial pressure] 87 mmHg Normal 85-95 [facility] Comment on above: Order Comment: Speci men Type: ARTERIAL BLOOD SPECIMENOrdering Facility: [facility] Address: [address] [place] [address] Performed By: #### A LLBG ####[facility] LABORATORYCLIA [id number] [address] [place] Oxyhemoglobin (BldA) [Mass fraction] 95 % Normal 95-98 [facility] Comment on above: Order Comment: Speci men Type: ARTERIAL BLOOD SPECIMENOrdering Facility: [facility] Address: [address] [place] [address] Performed By: #### A LLBG ####[facility] LABORATORYCLIA [id number] [place] [address] [place] pH (Bld) 7.42 [pH] Normal 7.35-7.45 [facility] Comment on above: Order Comment: Speci men Type: ARTERIAL BLOOD SPECIMENOrdering Facility: [facility] Address: [address] [place] [address] Performed By: #### A LLBG ####[facility] LABORATORYCLIA [id number] [address] [place] pH adjusted to patient's actual temperature (Bld) 7.43 Normal 7.35-7.45 [facility] Comment on above: Order Comment: Speci men Type: ARTERIAL BLOOD SPECIMENOrdering Facility: [facility] Address: [address] [place] [address] Performed By: #### A LLBG ####[facility] LABORATORYCLIA [id number] [place] [address] [place] Potassium [Moles/Vol] 3.9 mmol/L Normal 3.5-5.0 [facility] Comment on above: Order Comment: Speci men Type: ARTERIAL BLOOD SPECIMENOrdering Facility: [facility] Address: [address] [place] [address] Performed By: #### A LLBG ####[facility] LABORATORYCLIA [id number] [place] [address] [place] Sodium [Moles/Vol] 137 mmol/L Normal 136-144 [facility] Comment on above: Order Comment: Speci men Type: ARTERIAL BLOOD SPECIMENOrdering Facility: [facility] Address: [address] [place] [address] Performed By: #### A LLBG ####[facility]ORATORYCLIA [id number] [place] [address] [place] Basic metabolic 2000 panelon 12-26-2022 Anion gap [Moles/Vol] 6 mmol/L Low 9-18 [facility] Comment on above: Order Comment: Speci men Type: BLOOD SPECIMENOrdering Facility: [facility] Address: [address] [place] [address] Performed By: #### 2 4321-2, , 2776-10 ####[facility] LABORATORYCLIA [id number] [place] [address] [place] Calcium [Mass/Vol] 8.5 mg/dL Normal 8.5-10.2 [facility] Comment on above: Order Comment: Speci men Type: BLOOD SPECIMENOrdering Facility: [facility] Address: [address] [place] [address] Performed By: #### 2 4321-2, , 2776-10 ####[facility] LABORATORYCLIA [id number] [place] [address] [place] Chloride [Moles/Vol] 110 mmol/L High 97-105 [facility] Comment on above: Order Comment: Speci men Type: BLOOD SPECIMENOrdering Facility: [facility] Address: [address] [place] [address] Performed By: #### 2 4321-2, , 2776-10 ####[facility] LABORATORYCLIA [id number] [place] [address] [place] CO2 [Moles/Vol] 22 mmol/L Normal 22-30 [facility] Comment on above: Order Comment: Speci men Type: BLOOD SPECIMENOrdering Facility: [facility] Address: [address] [place] [address] Performed By: #### 2 4321-2, , 2776-10 ####[facility] LABORATORYCLIA [id number] [place] [address] [place] Creatinine [Mass/Vol] 0.46 mg/dL Low 0.58-0.96 [facility] Comment on above: Order Comment: Cary lujan Type: BLOOD SPECIMENOrdering Facility: [facility] Address: [address] [id number] Performed By: #### 2 4321-2, , 2776-10 ####[facility] LABORATORYCLIA [id number] [place] [address] [place] ESTIMATED GLOMERULAR FILTRATION RATE 102 mL/min/1.73m??? Normal >=60 [facility] Comment on above: Order Comment: Cary lujan Type: BLOOD SPECIMENOrdering Facility: [facility] Address: [place] [address] Result Comment: Mariely mated Glomerular Filtration [...] Performed By: #### 2 4321-2, , 2776-10 ####[facility] LABORATORYCLIA [id number] [place] [address] [place] Glucose [Mass/Vol] 111 mg/dL High 74-99 [facility] Comment on above: Order Comment: Cary lujan Type: BLOOD SPECIMENOrdering Facility: [facility] Address: [place] [address] Result Comment: The [place] [employer] (ADA) provides guidance for cutoff [...] Standards of Medical Care in Diabetes 2016, [place] [employer]. Diabetes Care. 2016.39(Suppl 1). Performed By: #### 2 4321-2, 27282-2, 277-1 ####[facility] LABORATORYCLIA [id number] [place] [address] [place] Potassium [Moles/Vol] 4.1 mmol/L Normal 3.7-5.1 [facility] Comment on above: Order Comment: Speci men Type: BLOOD SPECIMENOrdering Facility: [facility] Address: [address] [place] [address] Performed By: #### 2 4321-2, , 2776-10 ####[facility] LABORATORYCLIA [id number] [address] [place] Sodium [Moles/Vol] 138 mmol/L Normal 136-144 [facility] Comment on above: Order Comment: Speci men Type: BLOOD SPECIMENOrdering Facility: [facility] Address: [address] [place] [address] Performed By: #### 2 4321-2, , 2776-10 ####[facility] LABORATORYCLIA [id number] [address] [place] Urea nitrogen [Mass/Vol] 7 mg/dL Normal 7-21 [facility] Comment on above: Order Comment: Speci men Type: BLOOD SPECIMENOrdering Facility: [facility] Address: [address] [place] [address] Performed By: #### 2 4321-2, , 2776-10 ####[facility] LABORATORYCLIA [id number] [address] [place] CASE MANAGEMon 12-26-2022 CASE MANAGEM Normal [facility] CBC panel Auto (Bld)on 12-26 Erythrocyte distribution width (RBC) [Ratio] 14.6 % Normal 11.5-15.0 [facility] Comment on above: Order Comment: Speci men Type: BLOOD SPECIMENOrdering Facility: [facility] Address: [address] [place] [address] Performed By: #### 5 8410-2 ####[facility] LABORATORYCLIA [id number] [address] Hematocrit (Bld) [Volume fraction] 29.8 % Low 36.0-46.0 [facility] Comment on above: Order Comment: Speci men Type: BLOOD SPECIMENOrdering Facility: [facility] Address: [address] [place] [address] Performed By: #### 5 8410-2 ####[facility] LABORATORYCLIA [id number] [address] OF [facility] Hemoglobin (Bld) [Mass/Vol] 9.3 g/dL Low 11.5-15.5 [facility] Comment on above: Order Comment: Speci men Type: BLOOD SPECIMENOrdering Facility: [facility] Address: [address] [place] [address] Performed By: #### 5 8410-2 ####[facility] LABORATORYCLIA [id number] [address] MCH (RBC) [Entitic mass] 32.0 pg Normal 26.0-34.0 [facility] Comment on above: Order Comment: Speci men Type: BLOOD SPECIMENOrdering Facility: [facility] Address: [address] [place] [address] Performed By: #### 5 8410-2 ####[facility] LABORATORYCLIA [id number] [address] MCHC (RBC) [Mass/Vol] 31.2 g/dL Normal 30.5-36.0 [facility] Comment on above: Order Comment: Speci men Type: BLOOD SPECIMENOrdering Facility: [facility] Address: [address] [place] [address] Performed By: #### 5 8410-2 ####[facility] LABORATORYCLIA [id number] [address] [place] MCV (RBC) [Entitic vol] 102.4 fL High 80.0-100.0 [facility] Comment on above: Order Comment: Speci men Type: BLOOD SPECIMENOrdering Facility: [facility] Address: [address] [place] [address] Performed By: #### 5 8410-2 ####[facility] LABORATORYCLIA [id number] [place] [address] [place] Nucleated RBC (Bld) [#/Vol] 10*3/uL Normal <0.01 [facility] Comment on above: Order Comment: Speci men Type: BLOOD SPECIMENOrdering Facility: [facility] Address: [address] [place] [address] Performed By: #### 5 8410-2 ####[facility] LABORATORYCLIA [id number] [place] [address] [place] Platelet mean volume (Bld) [Entitic vol] 10.6 fL Normal 9.0-12.7 [facility] Comment on above: Order Comment: Speci men Type: BLOOD SPECIMENOrdering Facility: [facility] Address: [address] [place] [address] Performed By: #### 5 8410-2 ####[facility] LABORATORYCLIA [id number] [address] [place] Platelets (Bld) [#/Vol] 313 10*3/uL Normal 150-400 [facility] Comment on above: Order Comment: Speci men Type: BLOOD SPECIMENOrdering Facility: [facility] Address: [address] [place] [address] Performed By: #### 5 8410-2 ####[facility] LABORATORYCLIA [id number] [place] [address] [place] RBC (Bld) [#/Vol] 2.91 10*6/uL Low 3.90-5.20 [facility] Comment on above: Order Comment: Speci men Type: BLOOD SPECIMENOrdering Facility: [facility] Address: [address] [place] [address] Performed By: #### 5 8410-2 ####[facility] LABORATORYCLIA [id number] [place] [address] [place] WBC (Bld) [#/Vol] 8.82 10*3/uL Normal 3.70-11.00 [facility] Comment on above: Order Comment: Speci men Type: BLOOD SPECIMENOrdering Facility: [facility] Address: [address] [place] [address] Performed By: #### 5 8410-2 ####[facility] LABORATORYCLIA [id number] [place] [address] [place] Magnesium SerPl-mCncon 12-26 Magnesium [Mass/Vol] 1.5 mg/dL Low 1.7-2.3 [facility] Comment on above: Order Comment: Speci men Type: BLOOD SPECIMENOrdering Facility: [facility] Address: [address] [place] [address] Performed By: #### 2 4321-2, 81017-8, 2776-10 ####[facility] LABORATORYCLIA [id number] [place] [address] [place] Phosphate SerPl-mCncon 12-26 Phosphate [Mass/Vol] 3.6 mg/dL Normal 2.7-4.8 [facility] Comment on above: Order Comment: Speci men Type: BLOOD SPECIMENOrdering Facility: [facility] Address: [address] [place] [address] Performed By: #### 2 4321-2, , 2776-10 ####[facility] LABORATORYCLIA [id number] [place] [address] [place] Basic metabolic 2000 panelon 12-25-2022 Anion gap [Moles/Vol] 8 mmol/L Low 9-18 [facility] Comment on above: Order Comment: Speci men Type: BLOOD SPECIMENOrdering Facility: [facility] Address: [address] [place] [address] Performed By: #### 2 4321-2, 2777-1, ####[facility] LABORATORYCLIA [id number] [place] [address] [place] Calcium [Mass/Vol] 8.3 mg/dL Low 8.5-10.2 [facility] Comment on above: Order Comment: Speci men Type: BLOOD SPECIMENOrdering Facility: [facility] Address: [address] [place] [address] Performed By: #### 2 4321-2, 2776-10, ####[facility] LABORATORYCLIA [id number] [place] [address] [place] Chloride [Moles/Vol] 110 mmol/L High 97-105 [facility] Comment on above: Order Comment: Speci men Type: BLOOD SPECIMENOrdering Facility: [facility] Address: [address] [place] [address] Performed By: #### 2 4321-2, 2776-10, ####[facility] LABORATORYCLIA [id number] [address] [place] CO2 [Moles/Vol] 21 mmol/L Low 22-30 [facility] Comment on above: Order Comment: Speci men Type: BLOOD SPECIMENOrdering Facility: [facility] Address: [address] [place] [address] Performed By: #### 2 4321-2, 2776-10, ####[facility] LABORATORYCLIA [id number] [place] [address] [place] Creatinine [Mass/Vol] 0.54 mg/dL Low 0.58-0.96 [facility] Comment on above: Order Comment: Speci men Type: BLOOD SPECIMENOrdering Facility: [facility] Address: [address] [place] [address] Performed By: #### 2 4321-2, 2776-10, ####[facility] LABORATORYCLIA [id number] [address] [place] ESTIMATED GLOMERULAR FILTRATION RATE 99 mL/min/1.73m??? Normal >=60 [facility] Comment on above: Order Comment: Speci men Type: BLOOD SPECIMENOrdering Facility: [facility] Address: [address] [phone] Result Comment: Mariely mated Glomerular Filtration Rate [...] GFR. Performed By: #### 2 4321-2, 2777-, ####[facility] LABORATORYCLIA [id number] [place] [address] [place] Glucose [Mass/Vol] 105 mg/dL High 74-99 [facility] Comment on above: Order Comment: Cary lujan Type: BLOOD SPECIMENOrdering Facility: [facility] Address: [address] [place] [address] Result Comment: The [place] [employer] (ADA) provides guidance for cutoff [...] Standards of Medical Care in Diabetes 2016, [place] [employer]. Diabetes Care. 2016.39(Suppl 1). Performed By: #### 2 4321-2, 2777-1, ####[facility] LABORATORYCLIA [id number] [place] [address] [place] Potassium [Moles/Vol] 4.0 mmol/L Normal 3.7-5.1 [facility] Comment on above: Order Comment: Cary [facility] Type: BLOOD SPECIMENOrdering Facility: [facility] Address: [address] Performed By: #### 2 4321-2, 2776-10, ####[facility] LABORATORYCLIA [id number] [address] STATES [facility] Sodium [Moles/Vol] 139 mmol/L Normal 136-144 [facility] Comment on above: Order Comment: Speci men Type: BLOOD SPECIMENOrdering Facility: [facility] Address: [address] [place] [address] Performed By: #### 2 4321-2, 2776-10, ####[facility] LABORATORYCLIA [id number] [address] STATES [facility] Urea nitrogen [Mass/Vol] 8 mg/dL Normal 7-21 [facility] Comment on above: Order Comment: Speci men Type: BLOOD SPECIMENOrdering Facility: [facility] Address: [address] [place] [address] Performed By: #### 2 4321-2, 2776-10, ####[facility] LABORATORYCLIA [id number] [address] CBC panel Auto (Bld)on 12-25 Erythrocyte distribution width (RBC) [Ratio] 14.9 % Normal 11.5-15.0 [facility] Comment on above: Order Comment: Speci men Type: BLOOD SPECIMENOrdering Facility: [facility] Address: [address] [place] [address] Performed By: #### 5 8410-2 ####[facility] LABORATORYCLIA [id number] [address] Hematocrit (Bld) [Volume fraction] 28.3 % Low 36.0-46.0 [facility] Comment on above: Order Comment: Speci men Type: BLOOD SPECIMENOrdering Facility: [facility] Address: [address] [place] [address] Performed By: #### 5 8410-2 ####[facility] LABORATORYCLIA [id number] [address] Hemoglobin (Bld) [Mass/Vol] 9.0 g/dL Low 11.5-15.5 [facility] Comment on above: Order Comment: Speci men Type: BLOOD SPECIMENOrdering Facility: [facility] Address: [address] [place] [address] Performed By: #### 5 8410-2 ####[facility] LABORATORYCLIA [id number] [address] MCH (RBC) [Entitic mass] 32.0 pg Normal 26.0-34.0 [facility] Comment on above: Order Comment: Speci men Type: BLOOD SPECIMENOrdering Facility: [facility] Address: [address] [place] [address] Performed By: #### 5 8410-2 ####[facility] LABORATORYCLIA [id number] [address] MCHC (RBC) [Mass/Vol] 31.8 g/dL Normal 30.5-36.0 [facility] Comment on above: Order Comment: Speci men Type: BLOOD SPECIMENOrdering Facility: [facility] Address: [address] [place] [address] Performed By: #### 5 8410-2 ####[facility] LABORATORYCLIA [id number] [address] MCV (RBC) [Entitic vol] 100.7 fL High 80.0-100.0 [facility] Comment on above: Order Comment: Speci men Type: BLOOD SPECIMENOrdering Facility: [facility] Address: [address] [place] [address] Performed By: #### 5 8410-2 ####[facility] LABORATORYCLIA [id number] [address] Nucleated RBC (Bld) [#/Vol] 10*3/uL Normal <0.01 [facility] Comment on above: Order Comment: Speci men Type: BLOOD SPECIMENOrdering Facility: [facility] Address: [address] [place] [address] Performed By: #### 5 8410-2 ####[facility] LABORATORYCLIA [id number] [address] [place] Platelet mean volume (Bld) [Entitic vol] 11.3 fL Normal 9.0-12.7 [facility] Comment on above: Order Comment: Speci men Type: BLOOD SPECIMENOrdering Facility: [facility] Address: [address] [place] [address] Performed By: #### 5 8410-2 ####[facility] LABORATORYCLIA [id number] [place] [address] [place] Platelets (Bld) [#/Vol] 294 10*3/uL Normal 150-400 [facility] Comment on above: Order Comment: Speci men Type: BLOOD SPECIMENOrdering Facility: [facility] Address: [address] [place] [address] Performed By: #### 5 8410-2 ####[facility] LABORATORYCLIA [id number] [place] [address] [place] RBC (Bld) [#/Vol] 2.81 10*6/uL Low 3.90-5.20 [facility] Comment on above: Order Comment: Speci men Type: BLOOD SPECIMENOrdering Facility: [facility] Address: [address] [place] [address] Performed By: #### 5 8410-2 ####[facility] LABORATORYCLIA [id number] [place] [address] [place] WBC (Bld) [#/Vol] 7.71 10*3/uL Normal 3.70-11.00 [facility] Comment on above: Order Comment: Speci men Type: BLOOD SPECIMENOrdering Facility: [facility] Address: [address] [place] [address] Performed By: #### 5 8410-2 ####[facility] LABORATORYCLIA [id number] [address] [place] CONSULT PROGon 12-25-2022 CONSULT PROG Normal [facility] Magnesium SerPl[facility]25 Magnesium [Mass/Vol] 1.6 mg/dL Low 1.7-2.3 [facility] Comment on above: Order Comment: Speci men Type: BLOOD SPECIMENOrdering Facility: [facility] Address: [address] [place] [address] Performed By: #### 2 4321-2, 2777-1, ####[facility] LABORATORYCLIA [id number] [address] OF [facility] PT EDon 12-25-2022 PT ED Normal [facility] Phosphate SerPl-mCncon 12-25 Phosphate [Mass/Vol] 3.0 mg/dL Normal 2.7-4.8 [facility] Comment on above: Order Comment: Speci men Type: BLOOD SPECIMENOrdering Facility: [facility] Address: [address] [place] [address] Performed By: #### 2 4321-2, 2777-1, ####[facility] LABORATORYCLIA [id number] [address] [place] Bacteria Spec Resp Culton Bacteria identified Respiratory culture Nom (Unsp spec) CULTURE, RESPIRATORY: Rare Normal respiratory jorge present ORGANISM ID: 1 Rare Acinetobacter baumannii complex Refer to specimen collected on 12/21/22 GRAM STAIN: No organisms seen Many Polymorphonuclear leukocytes Abnormal [facility] Comment on above: Performed By: #### 3 2355-0 ####[facility] LABORATORYCLIA [id number] [place] [address] [place] Basic metabolic 2000 panelon 12-24-2022 Anion gap [Moles/Vol] 8 mmol/L Low 9-18 [facility] Comment on above: Order Comment: Speci men Type: BLOOD SPECIMENOrdering Facility: [facility] Address: [address] [place] [address] Performed By: #### 2 777-1, 53166-5, 68468-2, 3016-3, 3024-7 ####[facility] LABORATORYCLIA [id number] [place] [address] [place] Calcium [Mass/Vol] 8.0 mg/dL Low 8.5-10.2 [facility] Comment on above: Order Comment: Speci men Type: BLOOD SPECIMENOrdering Facility: [facility] Address: [address] [place] [address] Performed By: #### 2 777-1, 30232-6, 75893-8, 3, 3027 ####[facility] LABORATORYCLIA [id number] [place] [address] [place] Chloride [Moles/Vol] 110 mmol/L High 97-105 [facility] Comment on above: Order Comment: Speci men Type: BLOOD SPECIMENOrdering Facility: [facility] Address: [address] [place] [address] Performed By: #### 2 777-1, 71167-3, , 3, 7 ####[facility] LABORATORYCLIA [id number] [place] [address] [place] CO2 [Moles/Vol] 20 mmol/L Low 22-30 [facility] Comment on above: Order Comment: Speci men Type: BLOOD SPECIMENOrdering Facility: [facility] Address: [address] [place] [address] Performed By: #### 2 777-1, 89265-0, , 3, 7 ####[facility] LABORATORYCLIA [id number] [place] [address] [place] Creatinine [Mass/Vol] 0.63 mg/dL Normal 0.58-0.96 [facility] Comment on above: Order Comment: Speci men Type: BLOOD SPECIMENOrdering Facility: [facility] Address: [address] [place] [address] Performed By: #### 2 777-1, 68994-1, 89043-5, 3015-3, 3023-7 ####[facility] LABORATORYCLIA [id number] [place] [address] [place] ESTIMATED GLOMERULAR FILTRATION RATE 95 mL/min/1.73m??? Normal >=60 [facility] Comment on above: Order Comment: Cary lujan Type: BLOOD SPECIMENOrdering Facility: [facility] Address: [address] [place], [place] [id number] Result Comment: Mariely mated Glomerular Filtration Rate [...] actual GFR. Performed By: #### 2 777-1, 55521-6, 73865-2, 3016-3, 3024-7 ####[facility] HOSPITALCLIA [id number] [place], [place] [id number] [place] Glucose [Mass/Vol] 111 mg/dL High 74-99 [facility] Comment on above: Order Comment: Cary lujan Type: BLOOD SPECIMENOrdering Facility: [facility] Address: [address] [place] [address] Result Comment: The [place] [employer] (ADA) provides guidance for cutoff [...] Standards of Medical Care in Diabetes 2016, [place] [employer]. Diabetes Care. 2016.39(Suppl 1). Performed By: #### 2 777-1, 21405-6, 80090-0, 3016-3, 3024-7 ####[facility] LABORATORYCLIA [id number] [place] [address] [place] Potassium [Moles/Vol] 4.2 mmol/L Normal 3.7-5.1 [facility] Comment on above: Order Comment: Speci men Type: BLOOD SPECIMENOrdering Facility: [facility] Address: [address] [place] [address] Performed By: #### 2 777-1, 97016-1, 30066-5, 3016-3, 3024-7 ####[facility] LABORATORYCLIA [id number] [address] STATES OF [facility] Sodium [Moles/Vol] 138 mmol/L Normal 136-144 [facility] Comment on above: Order Comment: Speci men Type: BLOOD SPECIMENOrdering Facility: [facility] Address: [address] [place] [address] Performed By: #### 2 777-1, 88099-2, 80474-4, 3016-3, 3024-7 ####[facility] LABORATORYCLIA [id number] [address] STATES OF [facility] Urea nitrogen [Mass/Vol] 9 mg/dL Normal 7-21 [facility] Comment on above: Order Comment: Speci men Type: BLOOD SPECIMENOrdering Facility: [facility] Address: [address] [place] [address] Performed By: #### 2 777-1, 62292-3, 62754-0, 3016-3, 3024-7 ####[facility] LABORATORYCLIA [id number] [address] [place] CASE MANAGEMon 12-24-2022 CASE MANAGEM Normal [facility] CBC panel Auto (Bld)on 12-24 Erythrocyte distribution width (RBC) [Ratio] 15.0 % Normal 11.5-15.0 [facility] Comment on above: Order Comment: Speci men Type: BLOOD SPECIMENOrdering Facility: [facility] Address: [address] [place] [address] Performed By: #### 5 8410-2 ####[facility] LABORATORYCLIA [id number] [address] [place] Hematocrit (Bld) [Volume fraction] 28.9 % Low 36.0-46.0 [facility] Comment on above: Order Comment: Speci men Type: BLOOD SPECIMENOrdering Facility: [facility] Address: [address] [place] [address] Performed By: #### 5 8410-2 ####[facility] LABORATORYCLIA [id number] [address] [place] Hemoglobin (Bld) [Mass/Vol] 9.1 g/dL Low 11.5-15.5 [facility] Comment on above: Order Comment: Speci men Type: BLOOD SPECIMENOrdering Facility: [facility] Address: [address] [place] [address] Performed By: #### 5 8410-2 ####[facility] LABORATORYCLIA [id number] [address] [place] MCH (RBC) [Entitic mass] 31.9 pg Normal 26.0-34.0 [facility] Comment on above: Order Comment: Speci men Type: BLOOD SPECIMENOrdering Facility: [facility] Address: [address] [place] [address] Performed By: #### 5 8410-2 ####[facility] LABORATORYCLIA [id number] [address] [place] MCHC (RBC) [Mass/Vol] 31.5 g/dL Normal 30.5-36.0 [facility] Comment on above: Order Comment: Speci men Type: BLOOD SPECIMENOrdering Facility: [facility] Address: [address] [place] [address] Performed By: #### 5 8410-2 ####[facility] LABORATORYCLIA [id number] [address] [place] MCV (RBC) [Entitic vol] 101.4 fL High 80.0-100.0 [facility] Comment on above: Order Comment: Speci men Type: BLOOD SPECIMENOrdering Facility: [facility] Address: [address] [address] Performed By: #### 5 8410-2 ####[facility] LABORATORYCLIA [id number] [address] Nucleated RBC (Bld) [#/Vol] 10*3/uL Normal <0.01 [facility] Comment on above: Order Comment: Speci men Type: BLOOD SPECIMENOrdering Facility: [facility] Address: [address] [address] Performed By: #### 5 8410-2 ####[facility] LABORATORYCLIA [id number] [address] [place] Platelet mean volume (Bld) [Entitic vol] 11.6 fL Normal 9.0-12.7 [facility] Comment on above: Order Comment: Speci men Type: BLOOD SPECIMENOrdering Facility: [facility] Address: [address] [address] Performed By: #### 5 8410-2 ####[facility] LABORATORYCLIA [id number] [address] Platelets (Bld) [#/Vol] 284 10*3/uL Normal 150-400 [facility] Comment on above: Order Comment: Speci men Type: BLOOD SPECIMENOrdering Facility: [facility] Address: [address] [place] [address] Performed By: #### 5 8410-2 ####[facility] LABORATORYCLIA [id number] [address] [place] RBC (Bld) [#/Vol] 2.85 10*6/uL Low 3.90-5.20 [facility] Comment on above: Order Comment: Speci men Type: BLOOD SPECIMENOrdering Facility: [facility] Address: [address] [address] Performed By: #### 5 8410-2 ####[facility] LABORATORYCLIA [id number] [address] [place] WBC (Bld) [#/Vol] 8.78 10*3/uL Normal 3.70-11.00 [facility] Comment on above: Order Comment: Speci men Type: BLOOD SPECIMENOrdering Facility: [facility] Address: [address] [place] [address] Performed By: #### 5 8410-2 ####[facility] LABORATORYCLIA [id number] [address] OF [facility] CONSULT PROGon 12-24-2022 CONSULT PROG Normal [facility] Magnesium SerPl-mCncon 12-24 Magnesium [Mass/Vol] 1.7 mg/dL Normal 1.7-2.3 [facility] Comment on above: Order Comment: Speci men Type: BLOOD SPECIMENOrdering Facility: [facility] Address: [address] [place] [address] Performed By: #### 2 777-1, 65079-6, 88268-8, 6-3, 3024-7 ####[facility] LABORATORYCLIA [id number] [place] [address] [place] NUTRITIONon 12-24-2022 NUTRITION Normal [facility] Phosphate SerPl-ncon 12-24 Phosphate [Mass/Vol] 2.6 mg/dL Low 2.7-4.8 [facility] Comment on above: Order Comment: Speci men Type: BLOOD SPECIMENOrdering Facility: [facility] Address: [address] [place] [address] Performed By: #### 2 777-1, 45863-1, , 6-3, 3024-7 ####[facility] LABORATORYCLIA [id number] [address] [place] T4 Free SerPl-mCncon 023 Free T4 [Mass/Vol] 0.7 ng/dL Low 0.9-1.7 [facility] Comment on above: Order Comment: Speci men Type: BLOOD SPECIMENOrdering Facility: [facility] Address: [address] [place] [address] Performed By: #### 2 777-1, 06678-6, 96417-5, 6-3, 3024-7 ####[facility] LABORATORYCLIA [id number] [address] [place] TSH SerPl-aCncon 12-24-2022 TSH Qn 5.090 m[IU]/L High 0.270-4.200 [facility] Comment on above: Order Comment: Speci men Type: BLOOD SPECIMENOrdering Facility: [facility] Address: [address] [place] [address] Performed By: #### 2 777-1, 46125-5, 77557-5, 6-3, 3024-7 ####[facility] LABORATORYCLIA [id number] [address] [place] ALLIED HEALTHon 12-23-2022 ALLIED HEALTH Normal [facility] Basic metabolic 2000 panelon 12-23-2022 Anion gap [Moles/Vol] 7 mmol/L Low 9-18 [facility] Comment on above: Order Comment: Speci men Type: BLOOD SPECIMENOrdering Facility: [facility] Address: [address] [place] [address] Performed By: #### 2 4321-2, , 2776-10 ####[facility] LABORATORYCLIA [id number] [address] STATES OF [facility] Calcium [Mass/Vol] 7.6 mg/dL Low 8.5-10.2 [facility] Comment on above: Order Comment: Speci men Type: BLOOD SPECIMENOrdering Facility: [facility] Address: [address] [place] [address] Performed By: #### 2 4321-2, , 2776-10 ####[facility] LABORATORYCLIA [id number] [address] [place] Chloride [Moles/Vol] 112 mmol/L High 97-105 [facility] Comment on above: Order Comment: Speci men Type: BLOOD SPECIMENOrdering Facility: [facility] Address: [address] [place] [address] Performed By: #### 2 4321-2, , 2776-10 ####[facility] LABORATORYCLIA [id number] [place] [address] [place] [facility] CO2 [Moles/Vol] 20 mmol/L Low 22-30 [facility] Comment on above: Order Comment: Speci men Type: BLOOD SPECIMENOrdering Facility: [facility] Address: [address] [place] [address] Performed By: #### 2 4321-2, , 2776-10 ####[facility] LABORATORYCLIA [id number] [address] STATES OF [facility] Creatinine [Mass/Vol] 0.63 mg/dL Normal 0.58-0.96 [facility] Comment on above: Order Comment: Speci men Type: BLOOD SPECIMENOrdering Facility: [facility] Address: [address] [place] [address] Performed By: #### 2 432-2, , 2776-10 ####[facility] LABORATORYCLIA [id number] [address] ESTIMATED GLOMERULAR FILTRATION RATE 95 mL/min/1.73m??? Normal >=60 [facility] Comment on above: Order Comment: Speci men Type: BLOOD SPECIMENOrdering Facility: [facility] Address: [address] [place] [address] Result Comment: Mariely mated Glomerular Filtration Rate [...] Performed By: #### 2 4321-2, , 2776-10 ####[facility] LABORATORYCLIA [id number] [place] [address] [place] Glucose [Mass/Vol] 121 mg/dL High 74-99 [facility] Comment on above: Order Comment: Speci tai Type: BLOOD SPECIMENOrdering Facility: [facility] Address: [address] [place], [place] [address] Result Comment: The [place] Diabetes [employer] (ADA) provides guidance for cutoff [...] Standards of Medical Care in Diabetes 2016, [place] [employer]. Diabetes Care. 2016.39(Suppl 1). Performed By: #### 2 4321-2, , 2776-10 ####[facility] LABORATORYCLIA [id number] [place] [address] [place] Potassium [Moles/Vol] 4.0 mmol/L Normal 3.7-5.1 [facility] Comment on above: Order Comment: Cary lujan Type: BLOOD SPECIMENOrdering Facility: [facility] Address: [address] [id number] Performed By: #### 2 4321-2, , 2776-10 ####[facility] LABORATORYCLIA [id number] [place] [address] [place] Sodium [Moles/Vol] 139 mmol/L Normal 136-144 [facility] Comment on above: Order Comment: Cary tai Type: BLOOD SPECIMENOrdering Facility: [facility] Address: [address] [place], [place] [address] Performed By: #### 2 4321-2, , 2776-10 ####[facility] LABORATORYCLIA [id number] [place] [address] [place] Urea nitrogen [Mass/Vol] 11 mg/dL Normal 7-21 [facility] Comment on above: Order Comment: Speci men Type: BLOOD SPECIMENOrdering Facility: [facility] Address: [address] [place] [address] Performed By: #### 2 4321-2, 53103-9, 2777-1 ####[facility] LABORATORYCLIA [id number] [address] [place] CBC panel Auto (Bld)on 12-23 Erythrocyte distribution width (RBC) [Ratio] 14.7 % Normal 11.5-15.0 [facility] Comment on above: Order Comment: Speci men Type: BLOOD SPECIMENOrdering Facility: [facility] Address: [address] [place] [address] Performed By: #### 5 8410-2 ####[facility] LABORATORYCLIA [id number] [address] [place] Hematocrit (Bld) [Volume fraction] 28.4 % Low 36.0-46.0 [facility] Comment on above: Order Comment: Speci men Type: BLOOD SPECIMENOrdering Facility: [facility] Address: [address] [place] [address] Performed By: #### 5 8410-2 ####[facility] LABORATORYCLIA [id number] [address] [place] Hemoglobin (Bld) [Mass/Vol] 9.0 g/dL Low 11.5-15.5 [facility] Comment on above: Order Comment: Speci men Type: BLOOD SPECIMENOrdering Facility: [facility] Address: [address] [place] [address] Performed By: #### 5 8410-2 ####[facility] LABORATORYCLIA [id number] [address] [place] MCH (RBC) [Entitic mass] 32.0 pg Normal 26.0-34.0 [facility] Comment on above: Order Comment: Speci men Type: BLOOD SPECIMENOrdering Facility: [facility] Address: [address] [place] [address] Performed By: #### 5 8410-2 ####[facility] LABORATORYCLIA [id number] [address] STATES [facility] MCHC (RBC) [Mass/Vol] 31.7 g/dL Normal 30.5-36.0 [facility] Comment on above: Order Comment: Speci men Type: BLOOD SPECIMENOrdering Facility: [facility] Address: [address] [place] [address] Performed By: #### 5 8410-2 ####[facility] LABORATORYCLIA [id number] [address] [place] MCV (RBC) [Entitic vol] 101.1 fL High 80.0-100.0 [facility] Comment on above: Order Comment: Speci men Type: BLOOD SPECIMENOrdering Facility: [facility] Address: [address] [place] [address] Performed By: #### 5 8410-2 ####[facility] LABORATORYCLIA [id number] [address] [place] Nucleated RBC (Bld) [#/Vol] 10*3/uL Normal <0.01 [facility] Comment on above: Order Comment: Speci men Type: BLOOD SPECIMENOrdering Facility: [facility] Address: [address] [place] [address] Performed By: #### 5 8410-2 ####[facility] LABORATORYCLIA [id number] [address] [place] Platelet mean volume (Bld) [Entitic vol] 12.1 fL Normal 9.0-12.7 [facility] Comment on above: Order Comment: Speci men Type: BLOOD SPECIMENOrdering Facility: [facility] Address: [address] [place] [address] Performed By: #### 5 8410-2 ####[facility] LABORATORYCLIA [id number] [address] [place] Platelets (Bld) [#/Vol] 228 10*3/uL Normal 150-400 [facility] Comment on above: Order Comment: Speci men Type: BLOOD SPECIMENOrdering Facility: [facility] Address: [address] [place] [address] Performed By: #### 5 8410-2 ####[facility] LABORATORYCLIA [id number] [place] [address] [place] RBC (Bld) [#/Vol] 2.81 10*6/uL Low 3.90-5.20 [facility] Comment on above: Order Comment: Speci men Type: BLOOD SPECIMENOrdering Facility: [facility] Address: [address] [place] [address] Performed By: #### 5 8410-2 ####[facility] LABORATORYCLIA [id number] [address] [place] WBC (Bld) [#/Vol] 8.51 10*3/uL Normal 3.70-11.00 [facility] Comment on above: Order Comment: Speci men Type: BLOOD SPECIMENOrdering Facility: [facility] Address: [address] [place] [address] Performed By: #### 5 8410-2 ####[facility] LABORATORYCLIA [id number] [place] [address] [place] Magnesium SerPl-mCncon 12-23 Magnesium [Mass/Vol] 1.4 mg/dL Low 1.7-2.3 [facility] Comment on above: Order Comment: Speci men Type: BLOOD SPECIMENOrdering Facility: [facility] Address: [address] [place] [address] Performed By: #### 2 4321-2, 72854-9, 2777-1 ####[facility] LABORATORYCLIA [id number] [place] [address] [place] Phosphate SerPl-mCncon 12-23 Phosphate [Mass/Vol] 2.1 mg/dL Low 2.7-4.8 [facility] Comment on above: Order Comment: Speci men Type: BLOOD SPECIMENOrdering Facility: [facility] Address: [address] [place], [place] [address] [address] Performed By: #### 2 4321-2, , 27704-13 ####[facility] LABORATORYCLIA [id number] [place] [address] [place] XR CHEST 1V FRONTALon 2022 XR CHEST 1V FRONTAL Normal [facility] ALLIED HEALTHon 12-22-2022 ALLIED HEALTH Normal [facility] Basic metabolic 2000 panelon 12-22-2022 Anion gap [Moles/Vol] 6 mmol/L Low 9-18 [facility] Comment on above: Order Comment: Speci men Type: BLOOD SPECIMENOrdering Facility: [facility] Address: [address] [place] [address] Performed By: #### 2 777-1, , ####[facility] LABORATORYCLIA [id number] [place] [address] [place] Calcium [Mass/Vol] 7.4 mg/dL Low 8.5-10.2 [facility] Comment on above: Order Comment: Speci men Type: BLOOD SPECIMENOrdering Facility: [facility] Address: [address] [place] [address] Performed By: #### 2 777-1, , ####[facility] LABORATORYCLIA [id number] [place] [address] [place] Chloride [Moles/Vol] 111 mmol/L High 97-105 [facility] Comment on above: Order Comment: Speci men Type: BLOOD SPECIMENOrdering Facility: [facility] Address: [address] [place] [address] Performed By: #### 2 777-1, , ####[facility] LABORATORYCLIA [id number] [place] [address] [place] CO2 [Moles/Vol] 20 mmol/L Low 22-30 [facility] Comment on above: Order Comment: Speci men Type: BLOOD SPECIMENOrdering Facility: [facility] Address: [address] Performed By: #### 2 777-1, , ####[facility] GROVEIA [id number] [place] [id number] [place] [facility] Creatinine [Mass/Vol] 0.61 mg/dL Normal 0.58-0.96 [facility] Comment on above: Order Comment: Cary men Type: BLOOD SPECIMENOrdering Facility: [facility] Address: [address] [place] [address] Performed By: #### 2 777-1, , ####[facility] [id number] [address] OF [facility] ESTIMATED GLOMERULAR FILTRATION RATE 96 mL/min/1.73m??? Normal >=60 [facility] Comment on above: Order Comment: Cary lujan Type: BLOOD SPECIMENOrdering Facility: [facility] Address: [address] [place] [address] Result Comment: Mariely mated Glomerular Filtration Rate [...] GFR. Performed By: #### 2 777-1, , ####[facility] [id number] [place] [id number] [place] Glucose [Mass/Vol] 98 mg/dL Normal 74-99 [facility] Comment on above: Order Comment: Cary men Type: BLOOD SPECIMENOrdering Facility: [facility] Address: [address] [place] [address] Result Comment: The [place] [employer] (ADA) provides guidance for cutoff [...] Standards of Medical Care in Diabetes 2016, [place] [employer]. Diabetes Care. 2016.39(Suppl 1). Performed By: #### 2 777-1, , ####[facility] LABORATORYCLIA [id number] [place] [address] [place] Potassium [Moles/Vol] 4.1 mmol/L Normal 3.7-5.1 [facility] Comment on above: Order Comment: Cary lujan Type: BLOOD SPECIMENOrdering Facility: [facility] Address: [address] [place] [address] Performed By: #### 2 777-, , ####[facility]ITALCLIA [id number] [place] [address] [place] Sodium [Moles/Vol] 137 mmol/L Normal 136-144 [facility] Comment on above: Order Comment: Cary lujan Type: BLOOD SPECIMENOrdering Facility: [facility] Address: [address] [place] [address] Performed By: #### 2 777-1, , 96563-8 ####[facility] LABORATORYCLIA [id number] [place] [address] [place] Urea nitrogen [Mass/Vol] 10 mg/dL Normal 7-21 [facility] Comment on above: Order Comment: Cary lujan Type: BLOOD SPECIMENOrdering Facility: [facility] Address: [address] [address] Performed By: #### 2 777-1, , 13763-4 ####[facility] LABORATORYCLIA [id number] [place] [address] [place] CBC panel Auto (Bld)on 12-22 Erythrocyte distribution width (RBC) [Ratio] 14.9 % Normal 11.5-15.0 [facility] Comment on above: Order Comment: Speci men Type: BLOOD SPECIMENOrdering Facility: [facility] Address: [address] [place] [address] Performed By: #### 5 8410-2 ####[facility] LABORATORYCLIA [id number] [address] OF [facility] Hematocrit (Bld) [Volume fraction] 27.6 % Low 36.0-46.0 [facility] Comment on above: Order Comment: Speci men Type: BLOOD SPECIMENOrdering Facility: [facility] Address: [address] [place] [address] Performed By: #### 5 8410-2 ####[facility] LABORATORYCLIA [id number] [address] OF [facility] Hemoglobin (Bld) [Mass/Vol] 8.9 g/dL Low 11.5-15.5 [facility] Comment on above: Order Comment: Speci men Type: BLOOD SPECIMENOrdering Facility: [facility] Address: [address] [place] [address] Performed By: #### 5 8410-2 ####[facility] LABORATORYCLIA [id number] [address] [place] MCH (RBC) [Entitic mass] 32.7 pg Normal 26.0-34.0 [facility] Comment on above: Order Comment: Speci men Type: BLOOD SPECIMENOrdering Facility: [facility] Address: [address] [place] [address] Performed By: #### 5 8410-2 ####[facility] LABORATORYCLIA [id number] [address] [place] MCHC (RBC) [Mass/Vol] 32.2 g/dL Normal 30.5-36.0 [facility] Comment on above: Order Comment: Speci men Type: BLOOD SPECIMENOrdering Facility: [facility] Address: [address] [place] [address] Performed By: #### 5 8410-2 ####[facility] LABORATORYCLIA [id number] [address] MCV (RBC) [Entitic vol] 101.5 fL High 80.0-100.0 [facility] Comment on above: Order Comment: Speci men Type: BLOOD SPECIMENOrdering Facility: [facility] Address: [address] [place] [address] Performed By: #### 5 8410-2 ####[facility] LABORATORYCLIA [id number] [address] Nucleated RBC (Bld) [#/Vol] 10*3/uL Normal <0.01 [facility] Comment on above: Order Comment: Speci men Type: BLOOD SPECIMENOrdering Facility: [facility] Address: [address] [place] [address] Performed By: #### 5 8410-2 ####[facility] LABORATORYCLIA [id number] [address] STATES OF [facility] Platelet mean volume (Bld) [Entitic vol] 12.9 fL High 9.0-12.7 [facility] Comment on above: Order Comment: Speci men Type: BLOOD SPECIMENOrdering Facility: [facility] Address: [address] [place] [address] Performed By: #### 5 8410-2 ####[facility] LABORATORYCLIA [id number] [address] Platelets (Bld) [#/Vol] 180 10*3/uL Normal 150-400 [facility] Comment on above: Order Comment: Speci men Type: BLOOD SPECIMENOrdering Facility: [facility] Address: [address] [place] [address] Performed By: #### 5 8410-2 ####[facility] LABORATORYCLIA [id number] [address] [place] RBC (Bld) [#/Vol] 2.72 10*6/uL Low 3.90-5.20 [facility] Comment on above: Order Comment: Speci tai Type: BLOOD SPECIMENOrdering Facility: [facility] Address: [address] [place] [address] Performed By: #### 5 8410-2 ####[facility] LABORATORYCLIA [id number] [address] STATES [facility] WBC (Bld) [#/Vol] 9.09 10*3/uL Normal 3.70-11.00 [facility] Comment on above: Order Comment: Speci men Type: BLOOD SPECIMENOrdering Facility: [facility] Address: [address] [place] [address] Performed By: #### 5 8410-2 ####[facility] LABORATORYCLIA [id number] [address] Laboratory - Microbiology an d Antimicrobial susceptibilityOrdered By: Dr. Han on 12-22-2022 Bacteria identified Cx Nom (Bld) No growth in 5 days. [facility] Magnesium SerPl-mCncon 12-22 Magnesium [Mass/Vol] 1.7 mg/dL Normal 1.7-2.3 [facility] Comment on above: Order Comment: Cayr lujan Type: BLOOD SPECIMENOrdering Facility: [facility] Address: [address] [place] [address] Performed By: #### 2 777-1, 55579-1, 23791-0 ####[facility] LABORATORYCLIA [id number] [address] OF [facility] PT panel Coag (PPP)on 2022 INR Coag (PPP) [Relative time] {INR} Low 0.9-1.3 [facility] Comment on above: Order Comment: Cary lujan Type: BLOOD SPECIMENOrdering Facility: [facility] Address: [address] [place] [address] Result Comment: Adele min K Antagonist (VKA) Therapeutic Range: INR 2 to 3 (Target INR of 2.5)Note: For patients treated with VKA drugs, such as warfarin, the [place] [employer] 2012 Guideline recommends [...] of 3).Freddy TAVAREZ, et al. Chest 2012, 141:7S-47SNishimlexi RA, et al. [facility] 2017, 70: 252-289 Performed By: #### 1 4979-9, 02364-5 ####[facility] HOSPITALCLIA [id number] [place] [address] [place] PT Coag (PPP) [Time] 9.9 s Normal 9.7-13.0 [facility] Comment on above: Order Comment: Cary lujan Type: BLOOD SPECIMENOrdering Facility: [facility] Address: [address] [place] [address] Performed By: #### 1 4979-9, 15232-1 ####[facility]PITALCLIA [id number] [place] [address] [place] Phosphate SerPl-mCncon 12-22 Phosphate [Mass/Vol] 2.1 mg/dL Low 2.7-4.8 [facility] Comment on above: Order Comment: Cary lujan Type: BLOOD SPECIMENOrdering Facility: [facility] Address: [address] [place] [address] Performed By: #### 2 777-1, 11556-6, 47362-9 ####[facility] LABORATORYCLIA [id number] [place] [address] [place] aPTT PPPon 12-22-2022 aPTT Coag (PPP) [Time] 25.2 s Normal 23.0-32.4 [facility] Comment on above: Order Comment: Cary lujan Type: BLOOD SPECIMENOrdering Facility: [facility] Address: [address] [place] [address] Performed By: #### 1 4979-9, 60101-1 ####[facility] LABORATORYCLIA [id number] [address] OF [facility] Bacteria Spec Resp Culton Bacteria identified Respiratory culture Nom (Unsp spec) Abnormal [facility] Comment on above: Performed By: #### 3 2355-0 ####[facility] LABORATORYCLIA [id number] [place] [address] [place] Basic metabolic 2000 panelon 12-21-2022 Anion gap [Moles/Vol] 9 mmol/L Normal 9-18 [facility] Comment on above: Order Comment: Speci men Type: BLOOD SPECIMENOrdering Facility: [facility] Address: [address] [place] [address] Performed By: #### 2 4321-2, , 2776-10 ####[facility]PITALCLIA [id number] [place] [address] [place] Calcium [Mass/Vol] 7.5 mg/dL Low 8.5-10.2 [facility] Comment on above: Order Comment: Speci men Type: BLOOD SPECIMENOrdering Facility: [facility] Address: [address] [place] [address] Performed By: #### 2 4321-2, , 2776-10 ####[facility] LABORATORYCLIA [id number] [place] [address] [place] Chloride [Moles/Vol] 111 mmol/L High 97-105 [facility] Comment on above: Order Comment: Speci men Type: BLOOD SPECIMENOrdering Facility: [facility] Address: [address] [place] [address] Performed By: #### 2 4321-2, , 2776-10 ####[facility] LABORATORYCLIA [id number] [place] [address] [place] CO2 [Moles/Vol] 21 mmol/L Low 22-30 [facility] Comment on above: Order Comment: Speci men Type: BLOOD SPECIMENOrdering Facility: [facility] Address: [place] [address] Performed By: #### 2 4321-2, , 2776-10 ####[facility] LABORATORYCLIA [id number] [place] [address] [place] Creatinine [Mass/Vol] 0.59 mg/dL Normal 0.58-0.96 [facility] Comment on above: Order Comment: Speci men Type: BLOOD SPECIMENOrdering Facility: [facility] Address: [address] [place] [address] Performed By: #### 2 4321-2, , 2776-10 ####[facility]PITALCLIA [id number] [address] STATES OF [facility] ESTIMATED GLOMERULAR FILTRATION RATE 96 mL/min/1.73m??? Normal >=60 [facility] Comment on above: Order Comment: Speci men Type: BLOOD SPECIMENOrdering Facility: [facility] Address: [address] [place] [address] Result Comment: Mariely mated Glomerular Filtration Rate [...] Performed By: #### 2 4321-2, , 2776-10 ####[facility] LABORATORYCLIA [id number] [place] [id number] [place] Glucose [Mass/Vol] 124 mg/dL High 74-99 [facility] Comment on above: Order Comment: Speci men Type: BLOOD SPECIMENOrdering Facility: [facility] Address: [address] [place] [address] Result Comment: The [place] [employer] (ADA) provides guidance for cutoff [...] Standards of Medical Care in Diabetes 2016, [place] [employer]. Diabetes Care. 2016.39(Suppl 1). Performed By: #### 2 4321-2, , 2776-10 ####[facility] LABORATORYCLIA [id number] [place] [address] [place] Potassium [Moles/Vol] 3.6 mmol/L Low 3.7-5.1 [facility] Comment on above: Order Comment: Cary lujan Type: BLOOD SPECIMENOrdering Facility: [facility] Address: [address] [place] [address] Performed By: #### 2 4321-2, , 2776-10 ####[facility] LABORATORYCLIA [id number] [place] [address] [place] Sodium [Moles/Vol] 141 mmol/L Normal 136-144 [facility] Comment on above: Order Comment: Cary lujan Type: BLOOD SPECIMENOrdering Facility: [facility] Address: [address] [place] [address] Performed By: #### 2 4321-2, , 2776-10 ####[facility] LABORATORYCLIA [id number] [place] [address] [place] Urea nitrogen [Mass/Vol] 12 mg/dL Normal 7-21 [facility] Comment on above: Order Comment: Cary lujan Type: BLOOD SPECIMENOrdering Facility: [facility] Address: [address] [place] [address] Performed By: #### 2 432-2, , 2776-10 ####[facility] LABORATORYCLIA [id number] [address] [place] CASE MANAGEMon 12-21-2022 CASE MANAGEM Normal [facility] CBC panel Auto (Bld)on 12-21 Erythrocyte distribution width (RBC) [Ratio] 14.6 % Normal 11.5-15.0 [facility] Comment on above: Order Comment: Speci men Type: BLOOD SPECIMENOrdering Facility: [facility] Address: [address] [place] [address] Performed By: #### 5 8410-2 ####[facility] LABORATORYCLIA [id number] [address] Hematocrit (Bld) [Volume fraction] 27.3 % Low 36.0-46.0 [facility] Comment on above: Order Comment: Speci men Type: BLOOD SPECIMENOrdering Facility: [facility] Address: [address] [place] [address] Performed By: #### 5 8410-2 ####[facility] LABORATORYCLIA [id number] [address] [place] Hemoglobin (Bld) [Mass/Vol] 9.0 g/dL Low 11.5-15.5 [facility] Comment on above: Order Comment: Speci men Type: BLOOD SPECIMENOrdering Facility: [facility] Address: [address] [place] [address] Performed By: #### 5 8410-2 ####[facility] LABORATORYCLIA [id number] [address] [place] MCH (RBC) [Entitic mass] 32.8 pg Normal 26.0-34.0 [facility] Comment on above: Order Comment: Speci men Type: BLOOD SPECIMENOrdering Facility: [facility] Address: [address] [place] [address] Performed By: #### 5 8410-2 ####[facility] LABORATORYCLIA [id number] [address] [place] MCHC (RBC) [Mass/Vol] 33.0 g/dL Normal 30.5-36.0 [facility] Comment on above: Order Comment: Speci men Type: BLOOD SPECIMENOrdering Facility: [facility] Address: [address] [place] [address] Performed By: #### 5 8410-2 ####[facility] LABORATORYCLIA [id number] [address] MCV (RBC) [Entitic vol] 99.6 fL Normal 80.0-100.0 [facility] Comment on above: Order Comment: Speci men Type: BLOOD SPECIMENOrdering Facility: [facility] Address: [address] [place] [address] Performed By: #### 5 8410-2 ####[facility] LABORATORYCLIA [id number] [address] OF [facility] Nucleated RBC (Bld) [#/Vol] 10*3/uL Normal <0.01 [facility] Comment on above: Order Comment: Speci men Type: BLOOD SPECIMENOrdering Facility: [facility] Address: [address] [place] [address] Performed By: #### 5 8410-2 ####[facility] LABORATORYCLIA [id number] [address] Platelet mean volume (Bld) [Entitic vol] 12.9 fL High 9.0-12.7 [facility] Comment on above: Order Comment: Speci men Type: BLOOD SPECIMENOrdering Facility: [facility] Address: [address] [place] [address] Performed By: #### 5 8410-2 ####[facility] LABORATORYCLIA [id number] [address] [place] Platelets (Bld) [#/Vol] 140 10*3/uL Low 150-400 [facility] Comment on above: Order Comment: Speci men Type: BLOOD SPECIMENOrdering Facility: [facility] Address: [address] [place] [address] Performed By: #### 5 8410-2 ####[facility] LABORATORYCLIA [id number] [address] [place] RBC (Bld) [#/Vol] 2.74 10*6/uL Low 3.90-5.20 [facility] Comment on above: Order Comment: Speci men Type: BLOOD SPECIMENOrdering Facility: [facility] Address: [address] [place] [address] Performed By: #### 5 8410-2 ####[facility] LABORATORYCLIA [id number] [address] OF [facility] WBC (Bld) [#/Vol] 9.04 10*3/uL Normal 3.70-11.00 [facility] Comment on above: Order Comment: Speci men Type: BLOOD SPECIMENOrdering Facility: [facility] Address: [address] [place] [address] Performed By: #### 5 8410-2 ####[facility] LABORATORYCLIA [id number] [address] CONSULT PROGon 12-21-2022 CONSULT PROG Normal [facility] CONSULT PROG Normal [facility] Magnesium SerPl-mCncon 12-21 Magnesium [Mass/Vol] 1.8 mg/dL Normal 1.7-2.3 [facility] Comment on above: Order Comment: Speci men Type: BLOOD SPECIMENOrdering Facility: [facility] Address: [address] [place] [address] Performed By: #### 2 4321-2, 27377-4, 2777-1 ####[facility] LABORATORYCLIA [id number] [address] NURSING PROGon 12-21-2022 NURSING PROG Normal [facility] NURSING PROG Normal [facility] NURSING PROG Normal [facility] PT panel Coag (PPP)on 2022 INR Coag (PPP) [Relative time] {INR} Low 0.9-1.3 [facility] Comment on above: Order Comment: Speci men Type: BLOOD SPECIMENOrdering Facility: [facility] Address: [address] [place], [place] [id number] Result Comment: Adele min K Antagonist (VKA) Therapeutic Range: INR 2 to 3 (Target INR of 2.5)Note: For patients treated with VKA drugs, such as warfarin, the [place] [employer] 2012 Guideline recommends [...] Chest 2012, 141:7S-47SNishimura RA, et al. [facility] 2017, 70: 252-289 Performed By: #### 3 4528-0, 87548-9 ####[facility] LABORATORYCLIA [id number] [place] [address] [place] PT Coag (PPP) [Time] 10.0 s Normal 9.7-13.0 [facility] Comment on above: Order Comment: Cary lujan Type: BLOOD SPECIMENOrdering Facility: [facility] Address: [address] [place], [place] [address] Performed By: #### 3 4528-0, 88482-7 ####[facility] LABORATORYCLIA [id number] [address] [place] Phenobarb SerPl-mCncon 12-21 PHENobarbital [Mass/Vol] 25.5 ug/mL Normal 10.0-40.0 [facility] Comment on above: Order Comment: Cary lujan Type: BLOOD SPECIMENOrdering Facility: [facility] Address: [address] Result Comment: Refe rence ranges and high/low indicator flags are provided as general guidelines only. The treating physician must determine appropriate target levels/dosing based on the specific clinical situation. Performed By: #### 3 948-7 ####[facility] LABORATORYCLIA [id number] [address] OF [facility] Phosphate SerPl-mCncon 12-21 Phosphate [Mass/Vol] 2.1 mg/dL Low 2.7-4.8 [facility] Comment on above: Order Comment: Speci men Type: BLOOD SPECIMENOrdering Facility: [facility] Address: [address] [place] [address] Performed By: #### 2 4321-2, 99047-1, 2777-1 ####[facility] LABORATORYCLIA [id number] [address] aPTT PPPon 12-21-2022 aPTT Coag (PPP) [Time] 24.4 s Normal 23.0-32.4 [facility] Comment on above: Order Comment: Speci men Type: BLOOD SPECIMENOrdering Facility: [facility] Address: [address] [place] [address] Performed By: #### 3 4528-0, 67512-8 ####[facility] LABORATORYCLIA [id number] [address] Bacteria CSF Culton 12-21-19 23 Bacteria identified Cx Nom (CSF) CULTURE, CSF: No growth 5 days GRAM STAIN: No organisms seen No Polymorphonuclear Leukocytes Rare Epithelial cells Normal [facility] Comment on above: Performed By: #### 6 06-4 ####[facility] LABORATORYCLIA [id number] [address] [place] Basic metabolic 2000 panelon 12-20-2022 Anion gap [Moles/Vol] 9 mmol/L Normal 9-18 [facility] Comment on above: Order Comment: Speci men Type: BLOOD SPECIMENOrdering Facility: [facility] Address: [address] [place] [address] Performed By: #### 5 0190-8, 83206-0, 2777-1, 2276-01, ####[facility] LABORATORYCLIA [id number] [place] [address] [place] Calcium [Mass/Vol] 7.8 mg/dL Low 8.5-10.2 [facility] Comment on above: Order Comment: Speci men Type: BLOOD SPECIMENOrdering Facility: [facility] Address: [address] [place] [address] Performed By: #### 5 0190-8, 94252-9, 2776-1, 2276-01, ####[facility] LABORATORYCLIA [id number] [place] [address] [place] Chloride [Moles/Vol] 110 mmol/L High 97-105 [facility] Comment on above: Order Comment: Speci men Type: BLOOD SPECIMENOrdering Facility: [facility] Address: [address] [place] [address] Performed By: #### 5 0190-8, 97885-2, 2776-1, 2276-01, ####[facility] LABORATORYCLIA [id number] [place] [address] [place] CO2 [Moles/Vol] 22 mmol/L Normal 22-30 [facility] Comment on above: Order Comment: Speci men Type: BLOOD SPECIMENOrdering Facility: [facility] Address: [address] [place] [address] Performed By: #### 5 0190-8, 81396-2, 2776-1, 2276-01, ####[facility] LABORATORYCLIA [id number] [place] [address] [place] Creatinine [Mass/Vol] 0.57 mg/dL Low 0.58-0.96 [facility] Comment on above: Order Comment: Speci men Type: BLOOD SPECIMENOrdering Facility: [facility] Address: [address] [place] [address] Performed By: #### 5 0190-8, 89120-5, 2776-1, 2276- ####[facility] GROVEIA [id number] [place] [id number] [place] ESTIMATED GLOMERULAR FILTRATION RATE 97 mL/min/1.73m??? Normal >=60 [facility] Comment on above: Order Comment: Cary lujan Type: BLOOD SPECIMENOrdering Facility: [facility] Address: [address] [place] [address] Result Comment: Mariely mated Glomerular Filtration Rate [...] actual GFR. Performed By: #### 5 0190-8, 61597-4, 2777-1, 2275-, ####[facility] GROVEIA [id number] [place] [address] [place] Glucose [Mass/Vol] 106 mg/dL High 74-99 [facility] Comment on above: Order Comment: Rejicy lujan Type: BLOOD SPECIMENOrdering Facility: [facility] Address: [address] [place] [address] Result Comment: The [place] Diabetes [employer] (ADA) provides guidance for cutoff [...] Standards of Medical Care in Diabetes 2016, [place] [employer]. Diabetes Care. 2016.39(Suppl 1). Performed By: #### 5 0190-8, 58509-4, 2777-1, 2275-, ####[facility] LABORATORYIA [id number] [place] [address] [place] Potassium [Moles/Vol] 3.2 mmol/L Low 3.7-5.1 [facility] Comment on above: Order Comment: Speci men Type: BLOOD SPECIMENOrdering Facility: [facility] Address: [address] [place] [address] Performed By: #### 5 0190-8, 63979-0, 2777-1, 2275-4, 51674-1 ####[facility] LABORATORYCLIA [id number] [place] [address] [place] Sodium [Moles/Vol] 141 mmol/L Normal 136-144 [facility] Comment on above: Order Comment: Speci men Type: BLOOD SPECIMENOrdering Facility: [facility] Address: [address] [place] [address] Performed By: #### 5 0190-8, 85810-7, 2777-1, 2275-, 02987-7 ####[facility] LABORATORYCLIA [id number] [place] [address] [place] Urea nitrogen [Mass/Vol] 18 mg/dL Normal 7-21 [facility] Comment on above: Order Comment: Speci men Type: BLOOD SPECIMENOrdering Facility: [facility] Address: [address] [place] [address] Performed By: #### 5 0190-8, 40248-8, 2777-1, 2275-, 15719-2 ####[facility] LABORATORYCLIA [id number] [address] [place] CASE MANAGEMon 12-20-2022 CASE MANAGEM Normal [facility] CASE MGT INIT ASSESon 2022 CASE MGT INIT ASSES Normal [facility] CBC W Auto Differential pane l (Bld)on 12-20-2022 Basophils (Bld) [#/Vol] 10*3/uL Normal <0.11 [facility] Comment on above: Order Comment: Speci men Type: BLOOD SPECIMENOrdering Facility: [facility] Address: [address] [place] [address] Performed By: #### 5 7021-8 ####[facility]ORYCL[facility] [id number] [address] Basophils/100 WBC (Bld) 0.1 % Normal [facility] Comment on above: Order Comment: Speci men Type: BLOOD SPECIMENOrdering Facility: [facility] Address: [address] [place] [address] Performed By: #### 5 7021-8 ####[facility]ATORYCLIA [id number] [address] [place] Differential cell count method Nom (Bld) Auto Normal [facility] Comment on above: Order Comment: Speci men Type: BLOOD SPECIMENOrdering Facility: [facility] Address: [address] [place] [address] Performed By: #### 5 7021-8 ####[facility] LABORATORYCLIA [id number] [address] [place] Eosinophils (Bld) [#/Vol] 0.11 10*3/uL Normal <0.46 [facility] Comment on above: Order Comment: Speci men Type: BLOOD SPECIMENOrdering Facility: [facility] Address: [address] [place] [address] Performed By: #### 5 7021-8 ####[facility] LABORATORYCLIA [id number] [address] Eosinophils/100 WBC (Bld) 1.4 % Normal [facility] Comment on above: Order Comment: Speci men Type: BLOOD SPECIMENOrdering Facility: [facility] Address: [address] [place] [address] Performed By: #### 5 7021-8 ####[facility]ORYCLIA [id number] [address] [place] Erythrocyte distribution width (RBC) [Ratio] 14.4 % Normal 11.5-15.0 [facility] Comment on above: Order Comment: Speci men Type: BLOOD SPECIMENOrdering Facility: [facility] Address: [address] [place] [address] Performed By: #### 5 7021-8 ####[facility] LABORATORYCLIA [id number] [address] Hematocrit (Bld) [Volume fraction] 28.0 % Low 36.0-46.0 [facility] Comment on above: Order Comment: Speci men Type: BLOOD SPECIMENOrdering Facility: [facility] Address: [address] [place] [address] Performed By: #### 5 7021-8 ####[facility] LABORATORYCLIA [id number] [address] [place] Hemoglobin (Bld) [Mass/Vol] 9.0 g/dL Low 11.5-15.5 [facility] Comment on above: Order Comment: Speci men Type: BLOOD SPECIMENOrdering Facility: [facility] Address: [address] [place] [address] Performed By: #### 5 7021-8 ####[facility] LABORATORYCLIA [id number] [address] Immature granulocytes (Bld) [#/Vol] 0.05 10*3/uL Normal <0.10 [facility] Comment on above: Order Comment: Speci men Type: BLOOD SPECIMENOrdering Facility: [facility] Address: [address] [place] [address] Performed By: #### 5 7021-8 ####[facility] LABORATORYCLIA [id number] [address] Immature granulocytes/100 WBC (Bld) 0.6 % Normal [facility] Comment on above: Order Comment: Speci men Type: BLOOD SPECIMENOrdering Facility: [facility] Address: [address] [place] [address] Performed By: #### 5 7021-8 ####[facility] LABORATORYCLIA [id number] [address] [place] Lymphocytes (Bld) [#/Vol] 1.03 10*3/uL Normal 1.00-4.00 [facility] Comment on above: Order Comment: Speci men Type: BLOOD SPECIMENOrdering Facility: [facility] Address: [address] [place] [address] Performed By: #### 5 7021-8 ####[facility] LABORATORYCLIA [id number] [address] Lymphocytes/100 WBC (Bld) 12.9 % Normal [facility] Comment on above: Order Comment: Speci men Type: BLOOD SPECIMENOrdering Facility: [facility] Address: [address] [place] [address] Performed By: #### 5 7021-8 ####[facility] LABORATORYCLIA [id number] [address] [place] MCH (RBC) [Entitic mass] 32.5 pg Normal 26.0-34.0 [facility] Comment on above: Order Comment: Speci men Type: BLOOD SPECIMENOrdering Facility: [facility] Address: [address] [place] [address] Performed By: #### 5 7021-8 ####[facility] LABORATORYCLIA [id number] [address] [place] [facility] HOSPITAL MCHC (RBC) [Mass/Vol] 32.1 g/dL Normal 30.5-36.0 [facility] Comment on above: Order Comment: Speci men Type: BLOOD SPECIMENOrdering Facility: [facility] Address: [address] [place] [address] Performed By: #### 5 7021-8 ####[facility] LABORATORYCLIA [id number] [address] STATES [facility] MCV (RBC) [Entitic vol] 101.1 fL High 80.0-100.0 [facility] Comment on above: Order Comment: Speci men Type: BLOOD SPECIMENOrdering Facility: [facility] Address: [address] [place] [address] Performed By: #### 5 7021-8 ####[facility]ATORYCLIA [id number] [place] [address] [place] Monocytes (Bld) [#/Vol] 0.93 10*3/uL High <0.87 [facility] Comment on above: Order Comment: Speci men Type: BLOOD SPECIMENOrdering Facility: [facility] Address: [address] [place] [address] Performed By: #### 5 7021-8 ####[facility] LABORATORYCLIA [id number] [address] [place] Monocytes/100 WBC (Bld) 11.7 % Normal [facility] Comment on above: Order Comment: Speci men Type: BLOOD SPECIMENOrdering Facility: [facility] Address: [address] [place] [address] Performed By: #### 5 7021-8 ####[facility] LABORATORYCLIA [id number] [address] [place] Neutrophils (Bld) [#/Vol] 5.83 10*3/uL Normal 1.45-7.50 [facility] Comment on above: Order Comment: Speci men Type: BLOOD SPECIMENOrdering Facility: [facility] Address: [address] [place] [address] Performed By: #### 5 7021-8 ####[facility] LABORATORYCLIA [id number] [address] [place] Neutrophils/100 WBC (Bld) 73.3 % Normal [facility] Comment on above: Order Comment: Speci men Type: BLOOD SPECIMENOrdering Facility: [facility] Address: [address] [place] [address] Performed By: #### 5 7021-8 ####[facility]ORATORYCLIA [id number] [place] [address] [place] Nucleated RBC (Bld) [#/Vol] 0.02 10*3/uL High <0.01 [facility] Comment on above: Order Comment: Speci men Type: BLOOD SPECIMENOrdering Facility: [facility] Address: [address] [address] Performed By: #### 5 7021-8 ####[facility] LABORATORYCLIA [id number] [address] [place] Nucleated RBC/100 WBC (Bld) [Ratio] 0.3 /100 WBC Normal [facility] Comment on above: Order Comment: Speci men Type: BLOOD SPECIMENOrdering Facility: [facility] Address: [address] [place] [address] Performed By: #### 5 7021-8 ####[facility] LABORATORYCLIA [id number] [place] [address] [place] Platelet mean volume (Bld) [Entitic vol] 12.4 fL Normal 9.0-12.7 [facility] Comment on above: Order Comment: Speci men Type: BLOOD SPECIMENOrdering Facility: [facility] Address: [address] [place] [address] Performed By: #### 5 7021-8 ####[facility] LABORATORYCLIA [id number] [address] [place] Platelets (Bld) [#/Vol] 79 10*3/uL Low 150-400 [facility] Comment on above: Order Comment: Speci men Type: BLOOD SPECIMENOrdering Facility: [facility] Address: [address] [place] [address] Result Comment: No c lot detected. Performed By: #### 5 7021-8 ####[facility] LABORATORYCLIA [id number] [place] [address] [place] RBC (Bld) [#/Vol] 2.77 10*6/uL Low 3.90-5.20 [facility] Comment on above: Order Comment: Speci men Type: BLOOD SPECIMENOrdering Facility: [facility] Address: [address] [place] [address] Performed By: #### 5 7021-8 ####[facility] LABORATORYCLIA [id number] [place] [address] [place] WBC (Bld) [#/Vol] 7.96 10*3/uL Normal 3.70-11.00 [facility] Comment on above: Order Comment: Speci men Type: BLOOD SPECIMENOrdering Facility: [facility] Address: [address] [place] [address] Performed By: #### 5 7021-8 ####[facility] LABORATORYCLIA [id number] [address] OF [facility] CBC panel Auto (Bld)on 12-20 Erythrocyte distribution width (RBC) [Ratio] 14.4 % Normal 11.5-15.0 [facility] Comment on above: Order Comment: Speci men Type: BLOOD SPECIMENOrdering Facility: [facility] Address: [address] [place] [address] Performed By: #### 5 8410-2 ####[facility] LABORATORYCLIA [id number] [address] Hematocrit (Bld) [Volume fraction] 27.1 % Low 36.0-46.0 [facility] Comment on above: Order Comment: Speci men Type: BLOOD SPECIMENOrdering Facility: [facility] Address: [address] [place] [address] Performed By: #### 5 8410-2 ####[facility] LABORATORYCLIA [id number] [address] [place] Hemoglobin (Bld) [Mass/Vol] 8.9 g/dL Low 11.5-15.5 [facility] Comment on above: Order Comment: Speci men Type: BLOOD SPECIMENOrdering Facility: [facility] Address: [address] [place] [address] Performed By: #### 5 8410-2 ####[facility] LABORATORYCLIA [id number] [address] MCH (RBC) [Entitic mass] 32.7 pg Normal 26.0-34.0 [facility] Comment on above: Order Comment: Speci men Type: BLOOD SPECIMENOrdering Facility: [facility] Address: [address] [address] Performed By: #### 5 8410-2 ####[facility] LABORATORYCLIA [id number] [address] STATES [facility] MCHC (RBC) [Mass/Vol] 32.8 g/dL Normal 30.5-36.0 [facility] Comment on above: Order Comment: Speci men Type: BLOOD SPECIMENOrdering Facility: [facility] Address: [address] [address] Performed By: #### 5 8410-2 ####[facility] LABORATORYCLIA [id number] [address] [place] MCV (RBC) [Entitic vol] 99.6 fL Normal 80.0-100.0 [facility] Comment on above: Order Comment: Speci men Type: BLOOD SPECIMENOrdering Facility: [facility] Address: [address] [place] [address] Performed By: #### 5 8410-2 ####[facility] LABORATORYCLIA [id number] [address] STATES OF [facility] Nucleated RBC (Bld) [#/Vol] 0.02 10*3/uL High <0.01 [facility] Comment on above: Order Comment: Speci men Type: BLOOD SPECIMENOrdering Facility: [facility] Address: [address] [place] [address] Performed By: #### 5 8410-2 ####[facility] LABORATORYCLIA [id number] [address] STATES [facility] Platelet mean volume (Bld) [Entitic vol] 12.3 fL Normal 9.0-12.7 [facility] Comment on above: Order Comment: Speci men Type: BLOOD SPECIMENOrdering Facility: [facility] Address: [address] [place] [address] Performed By: #### 5 8410-2 ####[facility] LABORATORYCLIA [id number] [address] [place] Platelets (Bld) [#/Vol] 118 10*3/uL Low 150-400 [facility] Comment on above: Order Comment: Speci men Type: BLOOD SPECIMENOrdering Facility: [facility] Address: [address] [place] [address] Performed By: #### 5 8410-2 ####[facility] LABORATORYCLIA [id number] [place] [address] [place] RBC (Bld) [#/Vol] 2.72 10*6/uL Low 3.90-5.20 [facility] Comment on above: Order Comment: Speci men Type: BLOOD SPECIMENOrdering Facility: [facility] Address: [address] [place] [address] Performed By: #### 5 8410-2 ####[facility] LABORATORYCLIA [id number] [address] STATES OF [facility] WBC (Bld) [#/Vol] 8.10 10*3/uL Normal 3.70-11.00 [facility] Comment on above: Order Comment: Speci men Type: BLOOD SPECIMENOrdering Facility: [facility] Address: [address] [place] [address] Performed By: #### 5 8410-2 ####[facility] LABORATORYCLIA [id number] [address] OF [facility] CONSULT PROGon 12-20-2022 CONSULT PROG Normal [facility] CONSULT PROG Normal [facility] CSF MANUAL DIFFon 12-20-2022 DIF TTL, CSF 41 cells counted Normal [facility] Comment on above: Order Comment: Speci men Type: CEREBROSPINAL FLUIDOrdering Facility: [facility] Address: [address] [place] [address] Performed By: #### 3 4563-7, [id number] ####[facility] LABORATORYCLIA [id number] [address] [place] LYMPH%, CSF 66 % Normal 50-90 [facility] Comment on above: Order Comment: Speci men Type: CEREBROSPINAL FLUIDOrdering Facility: [facility] Address: [address] [address] Performed By: #### 3 4563-7, [id number] ####[facility] LABORATORYCLIA [id number] [place] [address] [place] MONO%, CSF 20 % Normal 10-50 [facility] Comment on above: Order Comment: Speci men Type: CEREBROSPINAL FLUIDOrdering Facility: [facility] Address: [address] [place] [address] Performed By: #### 3 4563-7, [id number] ####[facility] LABORATORYCLIA [id number] [place] [address] [place] NEUT%, CSF 15 % High 0-3 [facility] Comment on above: Order Comment: Speci men Type: CEREBROSPINAL FLUIDOrdering Facility: [facility] Address: [address] [place] [address] Result Comment: Less than 100 cells counted on differential Performed By: #### 3 4563-7, [id number] ####[facility] LABORATORYCLIA [id number] [address] [place] Calcium.ionized [Moles/Vol]o n 12-20-2022 Calcium.ionized (BldV) [Mass/Vol] 1.13 mmol/L Normal 1.08-1.30 [facility] Comment on above: Order Comment: Speci men Type: BLOOD SPECIMENOrdering Facility: [facility] Address: [address] [place] [address] Performed By: #### 1 995-0 ####[facility] LABORATORYCLIA [id number] [address] Calcium.ionized adjusted to pH 7.4 (Bld) [Moles/Vol] 1.13 mmol/L Normal 1.08-1.30 [facility] Comment on above: Order Comment: Speci men Type: BLOOD SPECIMENOrdering Facility: [facility] Address: [address] [place] [address] Performed By: #### 1 995-0 ####[facility]ORATORYCLIA [id number] [address] Cell count panel (CSF)on Clarity (CSF) Clear Normal Clear [facility] Comment on above: Order Comment: Speci men Type: CEREBROSPINAL FLUIDOrdering Facility: [facility] Address: [address] [address] Performed By: #### 3 4563-7, [id number] ####[facility]ATORYCLIA [id number] [address] Clarity (Unsp spec) Clear Normal Clear [facility] Comment on above: Order Comment: Speci men Type: CEREBROSPINAL FLUIDOrdering Facility: [facility] Address: [address] [place] [address] Performed By: #### 3 4563-7, [id number] ####[facility]ORATORYCLIA [id number] [address] Color (CSF) Colorless Normal Colorless [facility] Comment on above: Order Comment: Speci men Type: CEREBROSPINAL FLUIDOrdering Facility: [facility] Address: [address] [place] [address] Performed By: #### 3 4563-7, [id number] ####[facility]ORYCLIA [id number] [address] Color (Spun CSF) Colorless Normal Colorless [facility] Comment on above: Order Comment: Speci men Type: CEREBROSPINAL FLUIDOrdering Facility: [facility] Address: [address] [address] Performed By: #### 3 4563-7, [id number] ####[facility]ORATORYCLIA [id number] [address] CSF TUBE NUMBER Tube 1 Normal [facility] Comment on above: Order Comment: Speci men Type: CEREBROSPINAL FLUIDOrdering Facility: [facility] Address: [address] [address] Performed By: #### 3 4563-7, [id number] ####[facility]ATORYCLIA [id number] [address] [place] RBC Manual cnt (CSF) [#/Vol] 21 cells/uL High 0-5 [facility] Comment on above: Order Comment: Speci men Type: CEREBROSPINAL FLUIDOrdering Facility: [facility] Address: [address] [place] [address] Performed By: #### 3 4563-7, [id number] ####[facility] LABORATORYCLIA [id number] [address] WBC Manual cnt (CSF) [#/Vol] 3 cells/uL Normal 0-5 [facility] Comment on above: Order Comment: Speci men Type: CEREBROSPINAL FLUIDOrdering Facility: [facility] Address: [address] [place] [address] Performed By: #### 3 4563-7, [id number] ####[facility] LABORATORYCLIA [id number] [address] [place] Ferritin SerPl-mCncon 2022 Ferritin [Mass/Vol] 943.2 ng/mL High 14.7-205.1 [facility] Comment on above: Order Comment: Speci men Type: BLOOD SPECIMENOrdering Facility: [facility] Address: [address] [place] [address] Performed By: #### 5 0190-8, 79563-0, 2777-1, 2276-4, 75593-3 ####[facility] LABORATORYCLIA [id number] [address] [place] Folate SerPl-mCncon 12-21-19 Folate [Mass/Vol] 12.0 ng/mL Normal >4.7 [facility] Comment on above: Order Comment: Speci men Type: BLOOD SPECIMENOrdering Facility: [facility] Address: [address] [place] [address] Performed By: #### 2 284-8, 28500-8, 2132-9, 3053-6 ####[facility] LABORATORYCLIA [id number] [place] [address] [place] Glucose CSF-mCncon 3 Glucose (CSF) [Mass/Vol] 82 mg/dL High 40-70 [facility] Comment on above: Order Comment: Cary lujan Type: CEREBROSPINAL FLUIDOrdering Facility: [facility] Address: [address] [address] Result Comment: Lumb ar CSF glucose values of healthy patients are approximately 60% of the plasma values and must always be compared with a concurrently measured plasma value for adequate clinical interpretation.References: 1. Glucose HK (GLUC3) [package insert V 12.0 [place]ese]. [employer], [place], [place]. February 2016. 2. Cher Avery, Jailene HTimothy (2015). Chapter 7: Glucose and Lactate. Eliazar Del Cid.(eds.), Cerebrospinal Fluid in Clinical Neurology. [place]: [employer]. Performed By: #### 2 342-4, 2880-3 ####[facility] LABORATORYCLIA [id number] [place] [address] [place] HERPES SIMPLEX CSFon 023 HERPES SIMPLEX CSF HSV-1: Negative for Herpes Simplex Virus Type 1 by PCR HSV-2: Negative for Herpes Simplex Virus Type 2 by PCR Normal [facility] Comment on above: Performed By: #### [facility] ####[facility] LABCLIA [id number] [facility] [id number] [place] [address] [place] Iron and Iron binding capaci ty panelon 12-20-2022 Iron [Mass/Vol] 32 ug/dL Low 41-186 [facility] Comment on above: Order Comment: Cary lujan Type: BLOOD SPECIMENOrdering Facility: [facility] Address: [address] [id number] Performed By: #### 5 0190-8, 76585-7, 2777-1, 2276-4, 48479-6 ####[facility] LABORATORYCLIA [id number] [address] [place] Iron binding capacity [Mass/Vol] 128 ug/dL Low 232-386 [facility] Comment on above: Order Comment: Speci men Type: BLOOD SPECIMENOrdering Facility: [facility] Address: [address] [place] [address] Performed By: #### 5 0190-8, 50307-3, 2777-1, 2276-01, ####[facility] LABORATORYCLIA [id number] [place] [address] [place] Iron saturation [Mass fraction] 25.0 % Normal 15.0-57.0 [facility] Comment on above: Order Comment: Speci men Type: BLOOD SPECIMENOrdering Facility: [facility] Address: [address] [place] [address] Performed By: #### 5 0190-8, 90808-9, 2777-1, 2276-01, ####[facility] LABORATORYCLIA [id number] [place] [address] [place] MENINGITIS ENCEPHALITIS BIOF IREon 12-20-2022 C. gattii+neoformans DNA CY+non-probe Ql (CSF) Not detected Normal Not detected, Indeterminate [facility] Comment on above: Order Comment: Speci men Type: CEREBROSPINAL FLUIDOrdering Facility: [facility] Address: [address] [place] [address] Performed By: #### M GEBF ####[facility] LABORATORYCLIA [id number] [address] [place] CMV DNA CY+non-probe Ql (CSF) Not detected Normal Not detected, Indeterminate [facility] Comment on above: Order Comment: Speci men Type: CEREBROSPINAL FLUIDOrdering Facility: [facility] Address: [address] [place] [address] Performed By: #### M GEBF ####[facility] LABORATORYCLIA [id number] [address] [place] E. coli K1 DNA CY+non-probe Ql (CSF) Not detected Normal Not detected, Indeterminate [facility] Comment on above: Order Comment: Speci men Type: CEREBROSPINAL FLUIDOrdering Facility: [facility] Address: [address] [place], [place] [id number] Performed By: #### M GEBF ####[facility] LABORATORYCLIA [id number] [address] Enterovirus RNA CY+non-probe Ql (CSF) Not detected Normal Not detected, Indeterminate [facility] Comment on above: Order Comment: Speci [facility] Type: CEREBROSPINAL FLUIDOrdering Facility: [facility] Address: [address] [place] [address] Performed By: #### M GEBF ####[facility] LABORATORYCLIA [id number] [address] [place] H. influenzae DNA CY+non-probe Ql (CSF) Not detected Normal Not detected, Indeterminate [facility] Comment on above: Order Comment: Speci [facility] Type: CEREBROSPINAL FLUIDOrdering Facility: [facility] Address: [address] [place] [address] Performed By: #### M GEBF ####[facility] LABORATORYCLIA [id number] [address] [place] HHV 6 DNA CY+non-probe Ql (CSF) Not detected Normal Not detected, Indeterminate [facility] Comment on above: Order Comment: Speci [facility] Type: CEREBROSPINAL FLUIDOrdering Facility: [facility] Address: [address] [place] [address] Performed By: #### M GEBF ####[facility] LABORATORYCLIA [id number] [address] [place] HSV 1 DNA CY+non-probe Ql (CSF) Not detected Normal Not detected, Indeterminate [facility] Comment on above: Order Comment: Speci [facility] Type: CEREBROSPINAL FLUIDOrdering Facility: [facility] Address: [address] [place] [address] Performed By: #### M GEBF ####[facility] LABORATORYCLIA [id number] [address] [place] HSV 2 DNA CY+non-probe Ql (CSF) Not detected Normal Not detected, Indeterminate [facility] Comment on above: Order Comment: Speci men Type: CEREBROSPINAL FLUIDOrdering Facility: [facility] Address: [address] [address] Performed By: #### M GEBF ####[facility] LABORATORYCLIA [id number] [address] [place] L. monocytogenes DNA CY+non-probe Ql (CSF) Not detected Normal Not detected, Indeterminate [facility] Comment on above: Order Comment: Speci men Type: CEREBROSPINAL FLUIDOrdering Facility: [facility] Address: [address] [place] [address] Performed By: #### M GEBF ####[facility] LABORATORYCLIA [id number] [address] [place] N. meningitidis DNA CY+non-probe Ql (CSF) Not detected Normal Not detected, Indeterminate [facility] Comment on above: Order Comment: Speci [facility] Type: CEREBROSPINAL FLUIDOrdering Facility: [facility] Address: [address] [place] [address] Performed By: #### M GEBF ####[facility] LABORATORYCLIA [id number] [address] [place] Parechovirus A RNA CY+non-probe Ql (CSF) Not detected Normal Not detected, Indeterminate [facility] Comment on above: Order Comment: Speci men Type: CEREBROSPINAL FLUIDOrdering Facility: [facility] Address: [address] [place] [address] Performed By: #### M GEBF ####[facility] LABORATORYCLIA [id number] [address] [place] S. agalactiae DNA CY+non-probe Ql (CSF) Not detected Normal Not detected, Indeterminate [facility] Comment on above: Order Comment: Speci [facility] Type: CEREBROSPINAL FLUIDOrdering Facility: [facility] Address: [address] [place] [address] Performed By: #### M GEBF ####[facility] LABORATORYCLIA [id number] [address] [place] S. pneumoniae DNA CY+non-probe Ql (CSF) Not detected Normal Not detected, Indeterminate [facility] Comment on above: Order Comment: Cary lujan Type: CEREBROSPINAL FLUIDOrdering Facility: [facility] Address: [address] [place] [address] Performed By: #### M GEBF ####[facility] LABORATORYCLIA [id number] [address] OF [facility] VZV DNA CY+non-probe Ql (CSF) Not detected Normal Not detected, Indeterminate [facility] Comment on above: Order Comment: Cary lujan Type: CEREBROSPINAL FLUIDOrdering Facility: [facility] Address: [address] [place] [address] Performed By: #### M GEBF ####[facility] LABORATORYCLIA [id number] [address] [place] Magnesium SerPl-mCncon 12-20 Magnesium [Mass/Vol] 1.4 mg/dL Low 1.7-2.3 [facility] Comment on above: Order Comment: Cary lujan Type: BLOOD SPECIMENOrdering Facility: [facility] Address: [address] [place] [address] Performed By: #### 5 0190-8, 08498-1, 2777-1, 2276-4, 18398-6 ####[facility] LABORATORYCLIA [id number] [address] [place] NURSING PROGon 12-20-2022 NURSING PROG Normal [facility] PT panel Coag (PPP)on 2022 INR Coag (PPP) [Relative time] 1.0 {INR} Normal 0.9-1.3 [facility] Comment on above: Order Comment: Cary lujan Type: BLOOD SPECIMENOrdering Facility: [facility] Address: [address] [place] [address] Result Comment: Adele min K Antagonist (VKA) Therapeutic Range: INR 2 to 3 (Target INR of 2.5)Note: For patients treated with VKA drugs, such as warfarin, the [place] [employer] 2012 Guideline recommends [...] Chest 2012, 141:7S-47SNishimura RA, et al. [facility] 2017, 70: 252-289 Performed By: #### 3 4528-0, 02041-5 ####[facility] H[facility]PITALCLIA [id number] [place] [address] [place] PT Coag (PPP) [Time] 10.5 s Normal 9.7-13.0 [facility] Comment on above: Order Comment: Cary lujan Type: BLOOD SPECIMENOrdering Facility: [facility] Address: [address] [address] Performed By: #### 3 4528-0, 51202-1 ####[facility] GROVEIA [id number] [place] [address] [place] Phosphate SerPl-mCncon 12-20 Phosphate [Mass/Vol] 1.9 mg/dL Low 2.7-4.8 [facility] Comment on above: Order Comment: Cary lujan Type: BLOOD SPECIMENOrdering Facility: [facility] SYSTEM Address: [address] [address] Performed By: #### 5 0190-8, 79392-4, 2777-1, 2276-4, 81482-9 ####[facility]ITAL[facility]IA [id number] [place] [address] [place] Procalcitonin SerPl-mCncon 0 12-20-2022 Procalcitonin [Mass/Vol] 1.71 ng/mL High <0.09 [facility] Comment on above: Order Comment: Cary lujan Type: BLOOD SPECIMENOrdering Facility: [facility] Address: [address] [phone] Result Comment: For a guided interpretation of test results, please visit the Change in Procalcitonin Calculator, [email or web address]. Performed By: #### 2 284-8, 94816-1, 2132-9, 3053-6 ####[facility] LABORATORYCLIA [id number] [place] [address] [place] Prot CSF-mCncon 12-20-2022 Protein (CSF) [Mass/Vol] 22 mg/dL Normal 15-45 [facility] Comment on above: Order Comment: Speci men Type: CEREBROSPINAL FLUIDOrdering Facility: [facility] Address: [address] [address] Performed By: #### 2 342-4, 2880-3 ####[facility] LABORATORYCLIA [id number] [place] [address] [place] T3 SerPl-mCncon 12-20-2022 T3 [Mass/Vol] 87 ng/dL Normal 79-165 [facility] Comment on above: Order Comment: Speci men Type: BLOOD SPECIMENOrdering Facility: [facility] Address: [address] [address] Performed By: #### 2 284-8, 13718-0, 2132-9, 3053-6 ####[facility]ATORYCLIA [id number] [address] [place] Vancomycin random [Mass/Vol] on 12-20-2022 Vancomycin [Mass/Vol] 12.5 ug/mL Normal 10.0-20.0 [facility] Comment on above: Order Comment: Speci men Type: BLOOD SPECIMENOrdering Facility: [facility] Address: [address] [place] [address] Result Comment: Refe rence ranges and high/low indicator flags are provided as general guidelines only. The treating physician must determine appropriate target levels/dosing based on the specific clinical situation. Performed By: #### 4 091-5 ####[facility]ORATORYCLIA [id number] [place] [address] [place] Vit B12 SerPl-mCncon 023 Cobalamin (Vitamin B12) [Mass/Vol] 729 pg/mL Normal 232-1245 [facility] Comment on above: Order Comment: Speci men Type: BLOOD SPECIMENOrdering Facility: [facility] Address: [address] [place] [address] Performed By: #### 2 284-8, 46975-2, 2132-9, 3053-6 ####[facility] LABORATORYCLIA [id number] [address] [place] aPTT PPPon 12-20-2022 aPTT Coag (PPP) [Time] 24.2 s Normal 23.0-32.4 [facility] Comment on above: Order Comment: Speci men Type: BLOOD SPECIMENOrdering Facility: [facility] Address: [address] [place] [address] Performed By: #### 3 4528-0, 55807-3 ####[facility]ORATORYCLIA [id number] [address] [place] ALLIED HEALTHon 12-19-2022 ALLIED HEALTH Normal [facility] ALLIED HEALTH Normal [facility] Bacteria Spec Resp Culton Bacteria identified Respiratory culture Nom (Unsp spec) CULTURE, RESPIRATORY: Rare Normal respiratory jorge present GRAM STAIN: No organisms seen Few Polymorphonuclear leukocytes Few Epithelial cells Normal [facility] Comment on above: Performed By: #### 3 2355-0 ####[facility]ORATORYCLIA [id number] [place] [address] [place] Basic metabolic 2000 panelon 12-19-2022 Anion gap [Moles/Vol] 10 mmol/L Normal 9-18 [facility] Comment on above: Order Comment: Speci men Type: BLOOD SPECIMENOrdering Facility: [facility] Address: [address] [place] [address] Performed By: #### 2 4321-2 ####[facility]ORATORYCLIA [id number] [address] [place] Calcium [Mass/Vol] 8.6 mg/dL Normal 8.5-10.2 [facility] Comment on above: Order Comment: Speci men Type: BLOOD SPECIMENOrdering Facility: [facility] Address: [address] [place] [address] Performed By: #### 2 4321-2 ####[facility] LABORATORYCLIA [id number] [place] [address] [place] Chloride [Moles/Vol] 110 mmol/L High 97-105 [facility] Comment on above: Order Comment: Speci men Type: BLOOD SPECIMENOrdering Facility: [facility] Address: [address] [place] [address] Performed By: #### 2 4321-2 ####[facility]ATORYCLIA [id number] [address] [place] CO2 [Moles/Vol] 22 mmol/L Normal 22-30 [facility] Comment on above: Order Comment: Speci men Type: BLOOD SPECIMENOrdering Facility: [facility] Address: [address] [place] [address] Performed By: #### 2 4321-2 ####[facility] LABORATORYCLIA [id number] [address] [place] Creatinine [Mass/Vol] 0.72 mg/dL Normal 0.58-0.96 [facility] Comment on above: Order Comment: Speci men Type: BLOOD SPECIMENOrdering Facility: [facility] Address: [address] [place] [address] Performed By: #### 2 4321-2 ####[facility]ORATORYCLIA [id number] [address] [place] ESTIMATED GLOMERULAR FILTRATION RATE 90 mL/min/1.73m??? Normal >=60 [facility] Comment on above: Order Comment: Speci men Type: BLOOD SPECIMENOrdering Facility: [facility] Address: [address] [place] [address] Result Comment: Mariely mated Glomerular Filtration Rate [...] actual GFR. Performed By: #### 2 4321-2 ####[facility]ORATORYCLIA [id number] [place] [address] [place] Glucose [Mass/Vol] 117 mg/dL High 74-99 [facility] Comment on above: Order Comment: Speci men Type: BLOOD SPECIMENOrdering Facility: [facility] Address: [address] [place] [address] Result Comment: The [place] Diabetes Association (ADA) provides guidance for cutoff [...] Standards of Medical Care in Diabetes 2016, [place] [employer]. Diabetes Care. 2016.39(Suppl 1). Performed By: #### 2 4321-2 ####[facility]ORATORYCLIA [id number] [place] [address] [place] Potassium [Moles/Vol] 3.0 mmol/L Low 3.7-5.1 [facility] Comment on above: Order Comment: Rejii men Type: BLOOD SPECIMENOrdering Facility: [facility] Address: [address] [phone] Performed By: #### 2 4321-2 ####[facility] LABORATORYCLIA [id number] [place] [address] [place] Sodium [Moles/Vol] 142 mmol/L Normal 136-144 [facility] Comment on above: Order Comment: Speci men Type: BLOOD SPECIMENOrdering Facility: [facility] Address: [address] [address] Performed By: #### 2 4321-2 ####[facility] LABORATORYCLIA [id number] [address] [place] Urea nitrogen [Mass/Vol] 32 mg/dL High 7-21 [facility] Comment on above: Order Comment: Speci men Type: BLOOD SPECIMENOrdering Facility: [facility] Address: [address] [address] Performed By: #### 2 4321-2 ####[facility]ORATORYCLIA [id number] [address] [place] CBC panel Auto (Bld)on 12-19 Erythrocyte distribution width (RBC) [Ratio] 14.6 % Normal 11.5-15.0 [facility] Comment on above: Order Comment: Speci men Type: BLOOD SPECIMENOrdering Facility: [facility] Address: [address] [place] [address] Performed By: #### 5 8410-2 ####[facility]ORATORYCLIA [id number] [address] [place] Hematocrit (Bld) [Volume fraction] 30.7 % Low 36.0-46.0 [facility] Comment on above: Order Comment: Speci men Type: BLOOD SPECIMENOrdering Facility: [facility] Address: [address] [address] Performed By: #### 5 8410-2 ####[facility]ORATORYCLIA [id number] [address] [place] Hemoglobin (Bld) [Mass/Vol] 9.9 g/dL Low 11.5-15.5 [facility] Comment on above: Order Comment: Speci men Type: BLOOD SPECIMENOrdering Facility: [facility] Address: [address] [address] Performed By: #### 5 8410-2 ####[facility] LABORATORYCLIA [id number] [address] MCH (RBC) [Entitic mass] 32.0 pg Normal 26.0-34.0 [facility] Comment on above: Order Comment: Speci men Type: BLOOD SPECIMENOrdering Facility: [facility] Address: [address] [place] [address] Performed By: #### 5 8410-2 ####[facility] LABORATORYCLIA [id number] [address] MCHC (RBC) [Mass/Vol] 32.2 g/dL Normal 30.5-36.0 [facility] Comment on above: Order Comment: Speci men Type: BLOOD SPECIMENOrdering Facility: [facility] Address: [address] [place] [address] Performed By: #### 5 8410-2 ####[facility] LABORATORYCLIA [id number] [address] MCV (RBC) [Entitic vol] 99.4 fL Normal 80.0-100.0 [facility] Comment on above: Order Comment: Speci men Type: BLOOD SPECIMENOrdering Facility: [facility] Address: [address] [place] [address] Performed By: #### 5 8410-2 ####[facility]ORATORYCLIA [id number] [address] Nucleated RBC (Bld) [#/Vol] 0.02 10*3/uL High <0.01 [facility] Comment on above: Order Comment: Speci men Type: BLOOD SPECIMENOrdering Facility: [facility] Address: [address] [place] [address] Performed By: #### 5 8410-2 ####[facility]ORATORYCLIA [id number] [address] Platelet mean volume (Bld) [Entitic vol] 11.8 fL Normal 9.0-12.7 [facility] Comment on above: Order Comment: Speci men Type: BLOOD SPECIMENOrdering Facility: [facility] Address: [address] [place] [address] Performed By: #### 5 8410-2 ####[facility]ORATORYCLIA [id number] [address] Platelets (Bld) [#/Vol] 74 10*3/uL Low 150-400 [facility] Comment on above: Order Comment: Speci men Type: BLOOD SPECIMENOrdering Facility: [facility] Address: [address] [place] [address] Result Comment: No c lot detected. Performed By: #### 5 8410-2 ####[facility]ORATORYCLIA [id number] [address] OF [facility] RBC (Bld) [#/Vol] 3.09 10*6/uL Low 3.90-5.20 [facility] Comment on above: Order Comment: Speci men Type: BLOOD SPECIMENOrdering Facility: [facility] Address: [address] [place] [address] Performed By: #### 5 8410-2 ####[facility]ATORYCLIA [id number] [address] OF [facility] WBC (Bld) [#/Vol] 15.05 10*3/uL High 3.70-11.00 [facility] Comment on above: Order Comment: Speci men Type: BLOOD SPECIMENOrdering Facility: [facility] Address: [address] [place] [address] Performed By: #### 5 8410-2 ####[facility]ORATORYCLIA [id number] [address] [place] CONSULTon 12-19-2022 CONSULT Normal [facility] CONSULT PROGon 12-19-2022 CONSULT PROG Normal [facility] CONSULT PROG Normal [facility] Comprehensive metabolic 2000 panelon 12-19-2022 Albumin [Mass/Vol] 2.6 g/dL Low 3.9-4.9 [facility] Comment on above: Order Comment: Speci men Type: BLOOD SPECIMENOrdering Facility: [facility] Address: [address] [place] [address] Performed By: #### 2 777-1, 77563-2, , ####[facility]ORATORYCLIA [id number] [address] OF [facility] ALP [Catalytic activity/Vol] 75 U/L Normal 34-123 [facility] Comment on above: Order Comment: Speci men Type: BLOOD SPECIMENOrdering Facility: [facility] Address: [address] [place] [address] Performed By: #### 2 777-1, 03289-9, , ####[facility]ORATORYCLIA [id number] [address] OF [facility] ALT With P-5'-P [Catalytic activity/Vol] 20 U/L Normal 7-38 [facility] Comment on above: Order Comment: Speci men Type: BLOOD SPECIMENOrdering Facility: [facility] Address: [address] [place] [address] Performed By: #### 2 777-1, 72799-5, , ####[facility]ORATORYCLIA [id number] [address] Anion gap [Moles/Vol] 10 mmol/L Normal 9-18 [facility] Comment on above: Order Comment: Speci men Type: BLOOD SPECIMENOrdering Facility: [facility] Address: [address] [place] [address] Performed By: #### 2 777-1, 30764-9, , ####[facility]ORATORYCLIA [id number] [address] AST With P-5'-P [Catalytic activity/Vol] 40 U/L High 13-35 [facility] Comment on above: Order Comment: Speci men Type: BLOOD SPECIMENOrdering Facility: [facility] Address: [address] [place] [address] Performed By: #### 2 777-1, 61339-9, 49319-2, ####[facility]ORATORYCLIA [id number] [place] [address] [place] Bilirubin [Mass/Vol] 0.6 mg/dL Normal 0.2-1.3 [facility] Comment on above: Order Comment: Speci men Type: BLOOD SPECIMENOrdering Facility: [facility] Address: [address] [place] [address] Performed By: #### 2 777-1, 06839-2, , ####[facility]ORATORYCLIA [id number] [place] [address] [place] Calcium [Mass/Vol] 8.7 mg/dL Normal 8.5-10.2 [facility] Comment on above: Order Comment: Speci men Type: BLOOD SPECIMENOrdering Facility: [facility] Address: [address] [place] [address] Performed By: #### 2 777-1, 01495-6, , ####[facility]ORATORYCLIA [id number] [place] [address] [place] Chloride [Moles/Vol] 111 mmol/L High 97-105 [facility] Comment on above: Order Comment: Speci men Type: BLOOD SPECIMENOrdering Facility: [facility] Address: [address] [address] Performed By: #### 2 777-1, 27766-9, , ####[facility] LABORATORYCLIA [id number] [place] [id number] [place] CO2 [Moles/Vol] 21 mmol/L Low 22-30 [facility] Comment on above: Order Comment: Speci men Type: BLOOD SPECIMENOrdering Facility: [facility] Address: [address] [place] [address] Performed By: #### 2 777-1, 00467-5, , ####[facility]PITALCLIA [id number] [place] [address] [place] Creatinine [Mass/Vol] 0.71 mg/dL Normal 0.58-0.96 [facility] Comment on above: Order Comment: Cary lujan Type: BLOOD SPECIMENOrdering Facility: [facility] Address: [address] [address] Performed By: #### 2 777-1, 33997-2, , ####[facility] GROVEIA [id number] [address] [place] ESTIMATED GLOMERULAR FILTRATION RATE 91 mL/min/1.73m??? Normal >=60 [facility] Comment on above: Order Comment: Cary tai Type: BLOOD SPECIMENOrdering Facility: [facility] Address: [address] [place] [address] Result Comment: Mariely mated Glomerular Filtration Rate [...] actual GFR. Performed By: #### 2 777-1, 80240-1, , ####[facility] LABORATORYIA [id number] [address] [address] [id number] [place] Glucose [Mass/Vol] 94 mg/dL Normal 74-99 [facility] Comment on above: Order Comment: Speccy tai Type: BLOOD SPECIMENOrdering Facility: [facility] Address: [address] [address] Result Comment: The [place] Diabetes [employer] (ADA) provides guidance for cutoff [...] Standards of Medical Care in Diabetes 2016, [place] [employer]. Diabetes Care. 2016.39(Suppl 1). Performed By: #### 2 777-1, 72301-9, , ####[facility]ORATORYCLIA [id number] [place] [address] [place] Potassium [Moles/Vol] 3.9 mmol/L Normal 3.7-5.1 [facility] Comment on above: Order Comment: Cary lujan Type: BLOOD SPECIMENOrdering Facility: [facility] Address: [address] [place] [address] Performed By: #### 2 777-1, 21590-3, , ####[facility]ITALCLIA [id number] [place] [address] [place] Protein [Mass/Vol] 4.9 g/dL Low 6.3-8.0 [facility] Comment on above: Order Comment: Cary lujan Type: BLOOD SPECIMENOrdering Facility: [facility] Address: [address] [place] [address] Performed By: #### 2 777-1, 67257-2, , ####[facility]ORATORYCLIA [id number] [place] [address] [place] Sodium [Moles/Vol] 142 mmol/L Normal 136-144 [facility] Comment on above: Order Comment: Cary lujan Type: BLOOD SPECIMENOrdering Facility: [facility] Address: [address] [place] [address] Performed By: #### 2 777-1, 13573-9, , ####[facility]ORATORYCLIA [id number] [place] [address] [place] Urea nitrogen [Mass/Vol] 27 mg/dL High 7-21 [facility] Comment on above: Order Comment: Speci men Type: BLOOD SPECIMENOrdering Facility: [facility] Address: [address] [place] [address] Performed By: #### 2 777-1, 89840-3, , ####[facility] LABORATORYCLIA [id number] [place], [place] [id number] [place] [address] OF [facility] Lipid 1996 panelon 3 Cholesterol [Mass/Vol] 131 mg/dL Normal <200 [facility] Comment on above: Order Comment: Speci men Type: BLOOD SPECIMENOrdering Facility: [facility] Address: [address] [place] [address] Result Comment: <200 mg/dL, Desirable 200-239 mg/dL, Borderline high>239 mg/dL, High Performed By: #### 2 777-1, 54995-2, , ####[facility] LABORATORYCLIA [id number] [address] [place] Cholesterol in HDL [Mass/Vol] 34 mg/dL Low >39 [facility] Comment on above: Order Comment: Speci men Type: BLOOD SPECIMENOrdering Facility: [facility] Address: [address] [place] [address] Result Comment: 40-5 9 mg/dL, Acceptable>59 mg/dL, High: Negative risk factor for coronary heart disease<40 mg/dL, Low: Positive risk factor for coronary heart disease Performed By: #### 2 777-1, 16644-5, , ####[facility] LABORATORYCLIA [id number] [address] [place] Cholesterol in LDL [Mass/Vol] 79 mg/dL Normal <100 [facility] Comment on above: Order Comment: Speci men Type: BLOOD SPECIMENOrdering Facility: [facility] Address: [address] [place] [address] Result Comment: <100 mg/dL, Optimal 100-129 mg/dL, Near optimal/above optimal 130-159 mg/dL, Borderline high 160-189 mg/dL, High>189 mg/dL, Very highSecondary prevention optimal LDL Cholesterol levels are recommended to be < 70 mg/dL Performed By: #### 2 777-1, 94787-9, , ####[facility] LABORATORYCLIA [id number] [place], [place] [id number] [place] [address] [place] Cholesterol in LDL/Cholesterol in HDL [Mass ratio] 2.32 {ratio} Normal <2.54 [facility] Comment on above: Order Comment: Speci men Type: BLOOD SPECIMENOrdering Facility: [facility] Address: [address] [address] Result Comment: Refe rence:1. National Cholesterol Education Program ATP III Guideline At-A-Glance Quick Desk Reference: National Heart, Lung, and Blood Iliff. National Institutes of Health. 2001: NIH Publication No. 01-3305.2. An International Atherosclerosis Society position paper: global recommendations for the management of dyslipidemia: executive summary, Atherosclerosis. 2014: 232(2):410-413. Performed By: #### 2 777-1, 89199-9, , ####[facility] LABORATORYCLIA [id number] [address] STATES [facility] Cholesterol in VLDL [Mass/Vol] 18 mg/dL Normal <30 [facility] Comment on above: Order Comment: Speci men Type: BLOOD SPECIMENOrdering Facility: [facility] Address: [address] [address] Performed By: #### 2 777-1, 59776-3, , ####[facility] LABORATORYCLIA [id number] [address] [place] Cholesterol non HDL [Mass/Vol] 97 mg/dL Normal <130 [facility] Comment on above: Order Comment: Speci men Type: BLOOD SPECIMENOrdering Facility: [facility] Address: [address] [address] Result Comment: <130 mg/dL, Optimal 130-159 mg/dL, Near optimal/above optimal 160-189 mg/dL, Borderline high 190-219 mg/dL, High>219 mg/dL, Very highSecondary prevention optimal non HDL Cholesterol levels are recommended to be <100 mg/dL Performed By: #### 2 777-1, 41278-0, , ####[facility] LABORATORYCLIA [id number] [address] Cholesterol.total/Cho lesterol in HDL [Mass ratio] 3.85 {ratio} Normal <5.10 [facility] Comment on above: Order Comment: Speci men Type: BLOOD SPECIMENOrdering Facility: [facility] Address: [address] [place] [address] Performed By: #### 2 777-1, 71992-4, , ####[facility] LABORATORYCLIA [id number] [address] FASTING TIME Normal [facility] Comment on above: Order Comment: Speci men Type: BLOOD SPECIMENOrdering Facility: [facility] Address: [address] [place] [address] Result Comment: Unkn own Performed By: #### 2 777-1, , , ####[facility] LABORATORYCLIA [id number] [address] Triglyceride [Mass/Vol] 89 mg/dL Normal <150 [facility] Comment on above: Order Comment: Speci men Type: BLOOD SPECIMENOrdering Facility: [facility] Address: [address] [place] [address] Result Comment: <150 mg/dL, Normal 150-199 mg/dL, Borderline high 200-499 mg/dL, High>499 mg/dL, Very high Performed By: #### 2 777-1, 48817-6, , ####[facility] LABORATORYCLIA [id number] [address] OF [facility] MRI BRAIN WO/W IVCONon 12-19 MRI BRAIN WO/W IVCON Normal [facility] Magnesium SerPl-mCncon 12-19 Magnesium [Mass/Vol] 1.9 mg/dL Normal 1.7-2.3 [facility] Comment on above: Order Comment: Speci men Type: BLOOD SPECIMENOrdering Facility: [facility] Address: [address] [phone] Performed By: #### 2 777-1, 01544-6, 16601-9, 31418-7 ####[facility] LABORATORYCLIA [id number] [address] OF [facility] Microbial respiratory cultur eOrdered By: Dr. Pham on 12-19-2022 Bacteria identified Respiratory culture Nom (Unsp spec) [facility] NURSING PROGon 12-19-2022 NURSING PROG Normal [facility] NURSING PROG Normal [facility] NUTRITIONon 12-19-2022 NUTRITION Normal [facility] PT panel Coag (PPP)on 2022 INR Coag (PPP) [Relative time] 1.0 {INR} Normal 0.9-1.3 [facility] Comment on above: Order Comment: Speci men Type: BLOOD SPECIMENOrdering Facility: [facility] Address: [address] [phone] Result Comment: Adele min K Antagonist (VKA) Therapeutic Range: INR 2 to 3 (Target INR of 2.5)Note: For patients treated with VKA drugs, such as warfarin, the [place] [employer] 2012 Guideline recommends [...] Chest 2012, 141:7S-47SNishimura RA, et al. [facility] 2017, 70: 252-289 Performed By: #### 3 4528-0, 78066-9 ####[facility] LABORATORYCLIA [id number] [place] [address] [place] [facility] PT Coag (PPP) [Time] 10.6 s Normal 9.7-13.0 [facility] Comment on above: Order Comment: Speci men Type: BLOOD SPECIMENOrdering Facility: [facility] Address: [address] [place] [address] Performed By: #### 3 4528-0, 13704-7 ####[facility] LABORATORYCLIA [id number] [address] Phosphate SerPl-mCncon 12-19 Phosphate [Mass/Vol] 1.8 mg/dL Low 2.7-4.8 [facility] Comment on above: Order Comment: Speci men Type: BLOOD SPECIMENOrdering Facility: [facility] Address: [address] [place] [address] Performed By: #### 2 777-1, 54495-5, 16999-6, 64048-3 ####[facility] LABORATORYCLIA [id number] [address] aPTT PPPon 12-19-2022 aPTT Coag (PPP) [Time] 23.9 s Normal 23.0-32.4 [facility] Comment on above: Order Comment: Speci men Type: BLOOD SPECIMENOrdering Facility: [facility] Address: [address] [place] [address] Performed By: #### 3 4528-0, 68230-6 ####[facility] LABORATORYCLIA [id number] [place] [address] [place] ALLIED HEALTHon 12-18-2022 ALLIED HEALTH Normal [facility] ALLIED HEALTH Normal [facility] APAP SerPl-mCncon 12-18-2022 Acetaminophen [Mass/Vol] ug/mL Low 10-30 [facility] Comment on above: Order Comment: Speci men Type: BLOOD SPECIMENOrdering Facility: [facility] Address: [place] [address] Result Comment: Toxi c > 150 ug/mL 4 hours post ingestionThe Gema Melissa nomogram can be used to estimate the probability of hepatotoxicity via the relationship of plasma acetaminophen concentration to the post ingestion interval. (Petra. Pediatrics. 1975. 55:871 to 876 and Gema et al. Arch [place] Med. 1981. 141:380 to 385).Reference ranges and high/low indicator flags are provided as general guidelines only. The treating physician must determine appropriate target levels/dosing based on the specific clinical situation. Performed By: #### 3 298-7, 4024-6 ####[facility] LABORATORYCLIA [id number] [address] STATES OF [facility] Absolute lymphocyte countOrd ered By: Dr. Alonzo on 12-18-2022 Lymphocytes Auto (Unsp spec) [#/Vol] 0.44 10*3/uL 0.83-4.51 [facility] Ammonia Plas-sCncon 12-19-19 23 Ammonia (P) [Moles/Vol] 16 umol/L Normal [facility] Comment on above: Order Comment: Cary lujan Type: BLOOD SPECIMENOrdering Facility: [facility] Address: [address] [place] [address] Performed By: #### 1 6362-6 ####[facility] LABORATORYCLIA [id number] [address] [place] Bacteria Bld Culton 12-19-19 23 Bacteria identified Cx Nom (Bld) CULTURE, BLOOD: No growth 5 days Normal [facility] Comment on above: Performed By: #### 6 00-7 ####[facility] LABORATORYCLIA [id number] [address] [place] Bacteria Ur Culton 3 Bacteria identified Cx Nom (U) CULTURE, URINE: No growth (<1,000 CFU/ml) Normal [facility] Comment on above: Performed By: #### 6 30-4 ####[facility] LABORATORYCLIA [id number] [place] [address] [place] Basophil percentageOrdered B y: Dr. Robert on 12-18-2022 Basophil percentage 1.7 mg/dL 2.5-4.9 [facility] Basophil percentageOrdered B y: Dr. Alonzo on 12-18-2022 Basophils/100 WBC (Bld) 0.2 % 0-1 [facility] Bilirubin [Mass/Vol] 1.20 mg/dL 0.20-1.00 [facility] Comment on above: For patients on eltr ombopag therapy, use of Dimension [place] TBIL is not recommended. Chloride [Moles/Vol] 112 mmol/L 98-107 [facility] Eosinophils/100 WBC (Bld) 0.0 % 0-5 [facility] Glucose [Mass/Vol] 135 mg/dL 74-106 [facility] Comment on above: Fasting Glucose resu lt greater than or equal to 126 mg/dL suggests DIABETES MELLITUS per A.D.A. criteria. Neutrophils (Bld) [#/Vol] 10.6 10*3/uL 2.0-7.7 [facility] Neutrophils/100 WBC (Bld) 92.6 % 47-70 [facility] Potassium [Moles/Vol] 3.4 mmol/L 3.5-5.1 [facility] Protein [Mass/Vol] 5.2 g/dL 6.4-8.2 [facility] Sodium [Moles/Vol] 143 mmol/L 136-145 [facility] WBC (Bld) [#/Vol] 11.5 10*3/uL 4.4-11.0 [facility] Blood erythrocytes count (nu mber/volume)Ordered By: Dr. Alonzo on 12-18-2022 RBC (Bld) [#/Vol] 3.88 10*6/uL 4.2-5.4 [facility] Blood hemoglobin measurement (mass/volume)Ordered By: Dr. Alonzo on 12-18-2022 Hemoglobin (Bld) [Mass/Vol] 12.8 g/dL 12.0-15.0 [facility] Blood lymphocytes/100 leukoc ytesOrdered By: Dr. Alonzo on 12-18-2022 Lymphocytes/100 WBC (Bld) 3.8 % 19-41 [facility] Blood monocytes/100 leukocyt esOrdered By: Dr. Alonzo on 12-18-2022 Monocytes/100 WBC (Bld) 2.6 % 0-10 [facility] Blood platelet adequacy dete ction by light microscopyOrdered By: Dr. Alonzo on 12-18-2022 Platelets LM Ql (Bld) MKD DEC ADEQ [facility] Blood platelet mean volumeOr dered By: Dr. Alonzo on 12-18-2022 Platelet mean volume (Bld) [Entitic vol] TNP [facility] Comment on above: Test not performed C diff Tox gens Stl Ql CY+p robeon 12-18-2022 C. difficile toxin genes CY+probe Ql (Stl) Positive Abnormal Negative for C. difficile toxin by PCR [facility] Comment on above: Order Comment: Speci tai Type: STOOL SPECIMENOrdering Facility: [facility] Address: [address] [place] [address] Result Comment: A po sitive PCR result [...] specimen submission. Performed By: #### Tarsha ALVARADO, 25902-6 ####[facility] LABORATORYCLIA [id number] [address] C. DIFFICILE TOXIN BY EIAon 12-18-2022 C. difficile toxin A+B IA Ql (Stl) Not detected Normal Negative for C. difficile toxin [facility] Comment on above: Order Comment: Cary lujan Type: STOOL SPECIMENOrdering Facility: [facility] Address: [address] [place] [address] Result Comment: Toxi n EIA is less sensitive than cell cytotoxin and PCR assays. Clinical correlation of PCR positive/toxin EIA negative results is required to distinguish C. difficle colonization from disease. Performed By: #### Tarsha ALVARADO, 64629-9 ####[facility]ORATORYCLIA [id number] [place] [address] [place] CBC W Auto Differential pane l (Bld)on 12-18-2022 Basophils (Bld) [#/Vol] 10*3/uL Normal <0.11 [facility] Comment on above: Order Comment: Speci men Type: BLOOD SPECIMENOrdering Facility: [facility] Address: [address] [place] [address] Performed By: #### 5 7021-8 ####[facility] LABORATORYCLIA [id number] [address] [place] Basophils/100 WBC (Bld) 0.1 % Normal [facility] Comment on above: Order Comment: Speci men Type: BLOOD SPECIMENOrdering Facility: [facility] Address: [address] [place] [address] Performed By: #### 5 7021-8 ####[facility] LABORATORYCLIA [id number] [address] Differential cell count method Nom (Bld) Auto Normal [facility] Comment on above: Order Comment: Speci men Type: BLOOD SPECIMENOrdering Facility: [facility] Address: [address] [place] [address] Performed By: #### 5 7021-8 ####[facility]ORATORYCLIA [id number] [place] [address] [place] Eosinophils (Bld) [#/Vol] 10*3/uL Normal <0.46 [facility] Comment on above: Order Comment: Speci men Type: BLOOD SPECIMENOrdering Facility: [facility] Address: [address] [place] [address] Performed By: #### 5 7021-8 ####[facility]ORATORYCLIA [id number] [address] [place] Eosinophils/100 WBC (Bld) 0.0 % Normal [facility] Comment on above: Order Comment: Speci men Type: BLOOD SPECIMENOrdering Facility: [facility] Address: [address] [place] [address] Performed By: #### 5 7021-8 ####[facility] LABORATORYCLIA [id number] [address] [place] Erythrocyte distribution width (RBC) [Ratio] 14.6 % Normal 11.5-15.0 [facility] Comment on above: Order Comment: Speci men Type: BLOOD SPECIMENOrdering Facility: [facility] Address: [address] [place] [address] Performed By: #### 5 7021-8 ####[facility] LABORATORYCLIA [id number] [address] [place] Hematocrit (Bld) [Volume fraction] 33.1 % Low 36.0-46.0 [facility] Comment on above: Order Comment: Speci men Type: BLOOD SPECIMENOrdering Facility: [facility] Address: [address] [place] [address] Performed By: #### 5 7021-8 ####[facility] LABORATORYCLIA [id number] [address] [place] Hemoglobin (Bld) [Mass/Vol] 11.2 g/dL Low 11.5-15.5 [facility] Comment on above: Order Comment: Speci men Type: BLOOD SPECIMENOrdering Facility: [facility] Address: [address] [place] [address] Performed By: #### 5 7021-8 ####[facility] LABORATORYCLIA [id number] [address] [place] Immature granulocytes (Bld) [#/Vol] 0.11 10*3/uL High <0.10 [facility] Comment on above: Order Comment: Speci men Type: BLOOD SPECIMENOrdering Facility: [facility] Address: [address] [place] [address] Performed By: #### 5 7021-8 ####[facility] LABORATORYCLIA [id number] [address] [place] Immature granulocytes/100 WBC (Bld) 0.7 % Normal [facility] Comment on above: Order Comment: Speci men Type: BLOOD SPECIMENOrdering Facility: [facility] Address: [address] [place] [address] Performed By: #### 5 7021-8 ####[facility] LABORATORYCLIA [id number] [place] [address] [place] Lymphocytes (Bld) [#/Vol] 0.63 10*3/uL Low 1.00-4.00 [facility] Comment on above: Order Comment: Speci men Type: BLOOD SPECIMENOrdering Facility: [facility] Address: [address] [place] [address] Performed By: #### 5 7021-8 ####[facility] LABORATORYCLIA [id number] [address] STATES OF [facility] Lymphocytes/100 WBC (Bld) 4.1 % Normal [facility] Comment on above: Order Comment: Speci men Type: BLOOD SPECIMENOrdering Facility: [facility] Address: [address] [place] [address] Performed By: #### 5 7021-8 ####[facility] LABORATORYCLIA [id number] [address] [place] MCH (RBC) [Entitic mass] 32.7 pg Normal 26.0-34.0 [facility] Comment on above: Order Comment: Speci men Type: BLOOD SPECIMENOrdering Facility: [facility] Address: [address] [place] [address] Performed By: #### 5 7021-8 ####[facility]ORATORYCLIA [id number] [place] [address] [place] MCHC (RBC) [Mass/Vol] 33.8 g/dL Normal 30.5-36.0 [facility] Comment on above: Order Comment: Speci men Type: BLOOD SPECIMENOrdering Facility: [facility] Address: [address] [place] [address] Performed By: #### 5 7021-8 ####[facility]ORATORYCLIA [id number] [place] [address] [place] MCV (RBC) [Entitic vol] 96.8 fL Normal 80.0-100.0 [facility] Comment on above: Order Comment: Speci men Type: BLOOD SPECIMENOrdering Facility: [facility] Address: [address] [place] [address] Performed By: #### 5 7021-8 ####[facility] LABORATORYCLIA [id number] [place] [address] [place] Monocytes (Bld) [#/Vol] 0.97 10*3/uL High <0.87 [facility] Comment on above: Order Comment: Speci men Type: BLOOD SPECIMENOrdering Facility: [facility] Address: [address] [place] [address] Performed By: #### 5 7021-8 ####[facility] LABORATORYCLIA [id number] [address] STATES [facility] Monocytes/100 WBC (Bld) 6.3 % Normal [facility] Comment on above: Order Comment: Speci men Type: BLOOD SPECIMENOrdering Facility: [facility] Address: [address] [place] [address] Performed By: #### 5 7021-8 ####[facility] LABORATORYCLIA [id number] [address] [place] Neutrophils (Bld) [#/Vol] 13.77 10*3/uL High 1.45-7.50 [facility] Comment on above: Order Comment: Speci men Type: BLOOD SPECIMENOrdering Facility: [facility] Address: [address] [place] [address] Performed By: #### 5 7021-8 ####[facility] LABORATORYCLIA [id number] [address] [place] Neutrophils/100 WBC (Bld) 88.8 % Normal [facility] Comment on above: Order Comment: Speci men Type: BLOOD SPECIMENOrdering Facility: [facility] Address: [address] [place] [address] Performed By: #### 5 7021-8 ####[facility] LABORATORYCLIA [id number] [address] Nucleated RBC (Bld) [#/Vol] 10*3/uL Normal <0.01 [facility] Comment on above: Order Comment: Speci men Type: BLOOD SPECIMENOrdering Facility: [facility] Address: [address] [place] [address] Performed By: #### 5 7021-8 ####[facility] LABORATORYCLIA [id number] [address] [place] Nucleated RBC/100 WBC (Bld) [Ratio] 0.0 /100 WBC Normal [facility] Comment on above: Order Comment: Speci men Type: BLOOD SPECIMENOrdering Facility: [facility] Address: [address] [place] [address] Performed By: #### 5 7021-8 ####[facility] LABORATORYCLIA [id number] [address] Platelet mean volume (Bld) [Entitic vol] Normal [facility] Comment on above: Order Comment: Speci men Type: BLOOD SPECIMENOrdering Facility: [facility] Address: [address] [place] [address] Result Comment: Unab le to Report. Performed By: #### 5 7021-8 ####[facility] LABORATORYCLIA [id number] [address] [place] Platelets (Bld) [#/Vol] 29 10*3/uL Low 150-400 [facility] Comment on above: Order Comment: Speci men Type: BLOOD SPECIMENOrdering Facility: [facility] Address: [address] [place] [address] Result Comment: No c lot detected. Performed By: #### 5 7021-8 ####[facility] LABORATORYCLIA [id number] [address] [place] RBC (Bld) [#/Vol] 3.42 10*6/uL Low 3.90-5.20 [facility] Comment on above: Order Comment: Speci men Type: BLOOD SPECIMENOrdering Facility: [facility] Address: [address] [place] [address] Performed By: #### 5 7021-8 ####[facility] LABORATORYCLIA [id number] [address] [place] WBC (Bld) [#/Vol] 15.50 10*3/uL High 3.70-11.00 [facility] Comment on above: Order Comment: Speci men Type: BLOOD SPECIMENOrdering Facility: [facility] Address: [address] [place] [address] Performed By: #### 5 7021-8 ####[facility] LABORATORYCLIA [id number] [address] STATES OF [facility] CBC W Ordered Manual Differe ntial panel (Bld)on 12-18-2022 ANISOCYTOSIS Present Normal [facility] Comment on above: Order Comment: Speci men Type: BLOOD SPECIMENOrdering Facility: [facility] Address: [address] [place] [address] Performed By: #### 5 7782-5, STFREV ####[facility] LABORATORYCLIA [id number] [address] [place] Basophils (Bld) [#/Vol] 0.00 10*3/uL Normal <0.11 [facility] Comment on above: Order Comment: Speci men Type: BLOOD SPECIMENOrdering Facility: [facility] Address: [address] [place] [address] Performed By: #### 5 7782-5, STFREV ####[facility] LABORATORYCLIA [id number] [address] Basophils/100 WBC (Bld) 0.0 % Normal [facility] Comment on above: Order Comment: Speci men Type: BLOOD SPECIMENOrdering Facility: [facility] Address: [address] [place] [address] Performed By: #### 5 7782-5, STFREV ####[facility]ATORYCLIA [id number] [address] Differential cell count method Nom (Bld) Manual Normal [facility] Comment on above: Order Comment: Speci men Type: BLOOD SPECIMENOrdering Facility: [facility] Address: [address] [place] [address] Performed By: #### 5 7782-5, STFREV ####[facility]ORATORYCLIA [id number] [address] STATES OF [facility] Eosinophils (Bld) [#/Vol] 0.00 10*3/uL Normal <0.46 [facility] Comment on above: Order Comment: Speci men Type: BLOOD SPECIMENOrdering Facility: [facility] Address: [address] [place] [address] Performed By: #### 5 7782-5, STFREV ####[facility]ATORYCLIA [id number] [address] Eosinophils/100 WBC (Bld) 0.0 % Normal [facility] Comment on above: Order Comment: Speci men Type: BLOOD SPECIMENOrdering Facility: [facility] Address: [address] [place] [address] Performed By: #### 5 7782-5, STFREV ####[facility]ATORYCLIA [id number] [address] Erythrocyte distribution width (RBC) [Ratio] 14.6 % Normal 11.5-15.0 [facility] Comment on above: Order Comment: Speci men Type: BLOOD SPECIMENOrdering Facility: [facility] Address: [address] [place] [address] Performed By: #### 5 7782-5, STFREV ####[facility]ATORYCLIA [id number] [address] [place] Hematocrit (Bld) [Volume fraction] 31.2 % Low 36.0-46.0 [facility] Comment on above: Order Comment: Speci men Type: BLOOD SPECIMENOrdering Facility: [facility] Address: [address] [place] [address] Performed By: #### 5 7782-5, STFREV ####[facility] LABORATORYCLIA [id number] [address] STATES OF [facility] Hemoglobin (Bld) [Mass/Vol] 10.4 g/dL Low 11.5-15.5 [facility] Comment on above: Order Comment: Speci men Type: BLOOD SPECIMENOrdering Facility: [facility] Address: [address] [place] [address] Performed By: #### 5 7782-5, STFREV ####[facility] LABORATORYCLIA [id number] [address] OF [facility] Lymphocytes (Bld) [#/Vol] 0.67 10*3/uL Low 1.00-4.00 [facility] Comment on above: Order Comment: Speci men Type: BLOOD SPECIMENOrdering Facility: [facility] Address: [address] [place] [address] Performed By: #### 5 7782-5, STFREV ####[facility]ORATORYCLIA [id number] [address] Lymphocytes/100 WBC (Bld) 4.0 % Normal [facility] Comment on above: Order Comment: Speci men Type: BLOOD SPECIMENOrdering Facility: [facility] Address: [address] [place] [address] Performed By: #### 5 7782-5, STFREV ####[facility] LABORATORYCLIA [id number] [address] STATES [facility] MCH (RBC) [Entitic mass] 32.8 pg Normal 26.0-34.0 [facility] Comment on above: Order Comment: Speci men Type: BLOOD SPECIMENOrdering Facility: [facility] Address: [address] [place] [address] Performed By: #### 5 7782-5, STFREV ####[facility] LABORATORYCLIA [id number] [place] [address] [place] MCHC (RBC) [Mass/Vol] 33.3 g/dL Normal 30.5-36.0 [facility] Comment on above: Order Comment: Speci men Type: BLOOD SPECIMENOrdering Facility: [facility] Address: [address] [place] [address] Performed By: #### 5 7782-5, STFREV ####[facility] LABORATORYCLIA [id number] [address] STATES OF [facility] MCV (RBC) [Entitic vol] 98.4 fL Normal 80.0-100.0 [facility] Comment on above: Order Comment: Speci men Type: BLOOD SPECIMENOrdering Facility: [facility] Address: [address] [place] [address] Performed By: #### 5 7782-5, STFREV ####[facility]ORATORYCLIA [id number] [address] [place] Monocytes (Bld) [#/Vol] 1.17 10*3/uL High <0.87 [facility] Comment on above: Order Comment: Speci men Type: BLOOD SPECIMENOrdering Facility: [facility] Address: [address] [place] [address] Performed By: #### 5 7782-5, STFREV ####[facility]ORATORYCLIA [id number] [address] STATES [facility] Monocytes/100 WBC (Bld) 7.0 % Normal [facility] Comment on above: Order Comment: Speci men Type: BLOOD SPECIMENOrdering Facility: [facility] Address: [address] [place] [address] Performed By: #### 5 7782-5, STFREV ####[facility]ORATORYCLIA [id number] [address] [place] Neutrophils (Bld) [#/Vol] 14.93 10*3/uL High 1.45-7.50 [facility] Comment on above: Order Comment: Speci men Type: BLOOD SPECIMENOrdering Facility: [facility] Address: [address] [address] Performed By: #### 5 7782-5, STFREV ####[facility]ORYCLIA [id number] [address] [place] Neutrophils/100 WBC (Bld) 89.0 % Normal [facility] Comment on above: Order Comment: Speci men Type: BLOOD SPECIMENOrdering Facility: [facility] Address: [address] [address] Performed By: #### 5 7782-5, STFREV ####[facility] LABORATORYCLIA [id number] [place] [address] [place] Nucleated RBC (Bld) [#/Vol] 0.17 10*3/uL High <0.01 [facility] Comment on above: Order Comment: Speci men Type: BLOOD SPECIMENOrdering Facility: [facility] Address: [address] [address] Performed By: #### 5 7782-5, STFREV ####[facility]ORATORYCLIA [id number] [address] [place] Nucleated RBC/100 WBC (Bld) [Ratio] 1.0 /100 WBC Normal [facility] Comment on above: Order Comment: Speci men Type: BLOOD SPECIMENOrdering Facility: [facility] Address: [address] [place] [address] Performed By: #### 5 7782-5, STFREV ####[facility]ORYCLIA [id number] [place] [address] [place] Pappenheimer bodies LM Ql (Bld) Occasional Normal [facility] Comment on above: Order Comment: Speci men Type: BLOOD SPECIMENOrdering Facility: [facility] Address: [address] [address] Performed By: #### 5 7782-5, STFREV ####[facility]ORYCLIA [id number] [address] [place] Platelet mean volume (Bld) [Entitic vol] 11.9 fL Normal 9.0-12.7 [facility] Comment on above: Order Comment: Speci men Type: BLOOD SPECIMENOrdering Facility: [facility] Address: [address] [place] [address] Performed By: #### 5 7782-5, STFREV ####[facility] LABORATORYCLIA [id number] [place] [address] [place] Platelets (Bld) [#/Vol] 64 10*3/uL Low 150-400 [facility] Comment on above: Order Comment: Speci men Type: BLOOD SPECIMENOrdering Facility: [facility] Address: [address] [place] [address] Result Comment: Plat elet count confirmed by manual review of peripheral blood smear. No clot detected. Performed By: #### 5 7782-5, STFREV ####[facility] LABORATORYCLIA [id number] [address] [place] Platelets Estimate (Bld) [#/Vol] Decreased Normal [facility] Comment on above: Order Comment: Speci men Type: BLOOD SPECIMENOrdering Facility: [facility] Address: [address] [place] [address] Performed By: #### 5 7782-5, STFREV ####[facility] LABORATORYCLIA [id number] [address] [place] Polychromasia LM Ql (Bld) Slight Normal [facility] Comment on above: Order Comment: Speci men Type: BLOOD SPECIMENOrdering Facility: [facility] Address: [address] [place] [address] Performed By: #### 5 7782-5, STFREV ####[facility] LABORATORYCLIA [id number] [address] [place] RBC (Bld) [#/Vol] 3.17 10*6/uL Low 3.90-5.20 [facility] Comment on above: Order Comment: Speci men Type: BLOOD SPECIMENOrdering Facility: [facility] Address: [address] [address] Performed By: #### 5 7782-5, STFREV ####[facility] LABORATORYCLIA [id number] [address] RBC FRAGMENTS Few Abnormal None Seen [facility] Comment on above: Order Comment: Cary lujan Type: BLOOD SPECIMENOrdering Facility: [facility] Address: [address] [address] Performed By: #### 5 7782-5, STFREV ####[facility] LABORATORYCLIA [id number] [address] RED CELL MORPH Reviewed: see result s of individual morphologies Normal [facility] Comment on above: Order Comment: Speci tai Type: BLOOD SPECIMENOrdering Facility: [facility] Address: [address] [place] [address] Performed By: #### 5 7782-5, STFREV ####[facility] LABORATORYCLIA [id number] [address] WBC (Bld) [#/Vol] 16.77 10*3/uL High 3.70-11.00 [facility] Comment on above: Order Comment: Cary tai Type: BLOOD SPECIMENOrdering Facility: [facility] Address: [address] [place] [address] Performed By: #### 5 7782-5, STFRCORBY ####[facility] LABORATORYCLIA [id number] [address] CNCRITCRon 12-18-2022 CNCRITCR Critical Care Transport (CCT) JAZMIN JOHNSON ([id number]) 1950 F CHT Date Time Provider Department 12/18/22 GERMAINE AVILA [facility] During your visit today, we recorded the following information about you: Germaine Avila APRN.CNP 12/18/2022 11:41 AM Signed CRITICAL CARE TRANSPORT MEDICAL CONTROL CONSULT NOTE Patient Name: Jazmin Johnson Service Date: December 18, 2022 Referring Facility: [facility] Accepting Facility: [facility] REASON FOR TRANSPORT: Pt requires specialized [...] reported to be intoxicated) who presented to [facility] for evaluation of seizure activity. Pt was [...] confirmed and read back via telephone with [facility] Transport receiving team member, Daron Kahn RN SIGNATURE: Germaine Avila [...] Status:Closed by MORALES KAHN on 12/18/22 Normal [facility] CONSULTon 12-18-2022 CONSULT Normal [facility] CONSULT Normal [facility] CONSULT PROGon 12-18-2022 CONSULT PROG Normal [facility] SOWMYA DIRECTon 12-18-2022 DAGT, POLYSPECIFIC AHG Negative Normal [facility] Comment on above: Order Comment: Speci men Type: BLOOD SPECIMENOrdering Facility: [facility] Address: [address] [address] Performed By: #### T SCR, DAGT ####[facility] BLOOD BANKCLIA [id number] [address] [place] CT BRAIN WO IVCONon 12-19-19 CT BRAIN WO IVCON Normal [facility] Comprehensive metabolic 2000 panelon 12-18-2022 Albumin [Mass/Vol] 2.7 g/dL Low 3.9-4.9 [facility] Comment on above: Order Comment: Speci men Type: BLOOD SPECIMENOrdering Facility: [facility] Address: [address] [address] Performed By: #### 2 777-1, 13448-5, 49507-3, 32482-7 ####[facility] LABORATORYCLIA [id number] [address] [place] ALP [Catalytic activity/Vol] 76 U/L Normal 34-123 [facility] Comment on above: Order Comment: Speci men Type: BLOOD SPECIMENOrdering Facility: [facility] Address: [address] [address] Performed By: #### 2 777-1, 57298-9, 53439-6, 86966-2 ####[facility] LABORATORYCLIA [id number] [address] [place] ALT With P-5'-P [Catalytic activity/Vol] 24 U/L Normal 7-38 [facility] Comment on above: Order Comment: Speci men Type: BLOOD SPECIMENOrdering Facility: [facility] Address: [address] [address] Performed By: #### 2 777-1, 83387-8, 99174-2, 42849-5 ####[facility] LABORATORYCLIA [id number] [address] STATES OF [facility] Anion gap [Moles/Vol] 9 mmol/L Normal 9-18 [facility] Comment on above: Order Comment: Speci men Type: BLOOD SPECIMENOrdering Facility: [facility] Address: [address] [place] [address] Performed By: #### 2 777-1, 49047-0, 81370-0, 55016-9 ####[facility] LABORATORYCLIA [id number] [address] OF [facility] AST With P-5'-P [Catalytic activity/Vol] 43 U/L High 13-35 [facility] Comment on above: Order Comment: Speci men Type: BLOOD SPECIMENOrdering Facility: [facility] Address: [address] [address] Performed By: #### 2 777-1, 19951-3, 29669-3, 96223-0 ####[facility] LABORATORYCLIA [id number] [address] [place] Bilirubin [Mass/Vol] 0.9 mg/dL Normal 0.2-1.3 [facility] Comment on above: Order Comment: Speci men Type: BLOOD SPECIMENOrdering Facility: [facility] Address: [address] [place] [address] Performed By: #### 2 777-1, 73601-4, 17310-2, 34765-7 ####[facility] LABORATORYCLIA [id number] [place] [address] [place] Calcium [Mass/Vol] 9.7 mg/dL Normal 8.5-10.2 [facility] Comment on above: Order Comment: Speci men Type: BLOOD SPECIMENOrdering Facility: [facility] Address: [address] [place] [address] Performed By: #### 2 777-1, 34061-7, 80180-8, 42300-6 ####[facility] LABORATORYCLIA [id number] [place] [id number] [place] Chloride [Moles/Vol] 110 mmol/L High 97-105 [facility] Comment on above: Order Comment: Speci men Type: BLOOD SPECIMENOrdering Facility: [facility] Address: [address] [place] [address] Performed By: #### 2 777-1, 33603-2, 55290-6, ####[facility] LABORATORYCLIA [id number] [place] [address] [place] CO2 [Moles/Vol] 21 mmol/L Low 22-30 [facility] Comment on above: Order Comment: Speci men Type: BLOOD SPECIMENOrdering Facility: [facility] Address: [address] [place] [address] Performed By: #### 2 777-1, 04064-3, 67399-0, 88230-5 ####[facility] LABORATORYCLIA [id number] [place] [address] [place] Creatinine [Mass/Vol] 0.72 mg/dL Normal 0.58-0.96 [facility] Comment on above: Order Comment: Speci men Type: BLOOD SPECIMENOrdering Facility: [facility] Address: [address] [place] [address] Performed By: #### 2 777-1, 37046-2, 53234-3, ####[facility] GROVEIA [id number] [place] [id number] [place] ESTIMATED GLOMERULAR FILTRATION RATE 90 mL/min/1.73m??? Normal >=60 [facility] Comment on above: Order Comment: Rejicy lujan Type: BLOOD SPECIMENOrdering Facility: [facility] Address: [address] [place] [address] Result Comment: Mariely mated Glomerular Filtration Rate [...] actual GFR. Performed By: #### 2 777-1, 26021-4, 56303-9, 22205-6 ####[facility]IA [id number] [place] [address] [place] Glucose [Mass/Vol] 153 mg/dL High 74-99 [facility] Comment on above: Order Comment: Cary lujan Type: BLOOD SPECIMENOrdering Facility: [facility] Address: [address] [place] [address] Result Comment: The [place] Diabetes [employer] (ADA) provides guidance for cutoff [...] Standards of Medical Care in Diabetes 2016, [place] [employer]. Diabetes Care. 2016.39(Suppl 1). Performed By: #### 2 777-1, 80743-4, 44746-5, 32248-3 ####[facility] LABORATORYCLIA [id number] [place] [address] [place] Potassium [Moles/Vol] 3.2 mmol/L Low 3.7-5.1 [facility] Comment on above: Order Comment: Speci men Type: BLOOD SPECIMENOrdering Facility: [facility] Address: [address] [place] [address] Performed By: #### 2 777-1, 17648-3, 94733-8, 59006-8 ####[facility] LABORATORYCLIA [id number] [place] [id number] [place] Protein [Mass/Vol] 5.0 g/dL Low 6.3-8.0 [facility] Comment on above: Order Comment: Speci men Type: BLOOD SPECIMENOrdering Facility: [facility] Address: [address] [place] [address] Performed By: #### 2 777-1, 51869-6, 46372-6, 75869-7 ####[facility] LABORATORYCLIA [id number] [place] [address] [place] Sodium [Moles/Vol] 140 mmol/L Normal 136-144 [facility] Comment on above: Order Comment: Speci men Type: BLOOD SPECIMENOrdering Facility: [facility] Address: [address] [place] [address] Performed By: #### 2 777-1, 12953-8, 20623-3, 33398-7 ####[facility] LABORATORYCLIA [id number] [place] [id number] [place] Urea nitrogen [Mass/Vol] 38 mg/dL High 7-21 [facility] Comment on above: Order Comment: Speci men Type: BLOOD SPECIMENOrdering Facility: [facility] Address: [address] [place] [address] Performed By: #### 2 777-1, 89347-9, 77848-4, 81355-7 ####[facility] LABORATORYCLIA [id number] [place] [id number] [place] Culture, urineOrdered By: Dr Timothy Han on 12-18-2022 Bacteria identified Cx Nom (U) Escherichia coli [facility] D dimer FEU PPP-mCncon 12-18 Fibrin D-dimer FEU (PPP) [Mass/Vol] 18014 ng/mL FEU High <500 [facility] Comment on above: Order Comment: Speci men Type: BLOOD SPECIMENOrdering Facility: [facility] Address: [address] [place] [address] Performed By: #### 3 255-7, 48784-0, 62771-2, 20557-2 ####[facility] LABORATORYCLIA [id number] [address] STATES [facility] Determination of erythrocyte mean corpuscular volume (MCV)Ordered By: Dr. Alonzo on 12-18-2022 MCV (RBC) [Entitic vol] 102.8 fL 81-99 [facility] Comment on above: Delta: 97.8 on 12/17 ECG COMPLETEon 12-18-2022 ECG COMPLETE Normal [facility] Fibrin D-dimer FEU (PPP) [Ma ss/Vol]on 12-18-2022 D DIMER AGE-RELATED CUTOFF 710 ng/mL FEU Normal [facility] Comment on above: Order Comment: Speci men Type: BLOOD SPECIMENOrdering Facility: [facility] Address: [address] [place] [address] Performed By: #### 3 255-7, 64745-6, 15949-2, 55402-2 ####[facility] LABORATORYCLIA [id number] [address] [place] Fibrinogen PPP-mCncon 2022 Fibrinogen Coag (PPP) [Mass/Vol] 238 mg/dL Normal 200-400 [facility] Comment on above: Order Comment: Speci men Type: BLOOD SPECIMENOrdering Facility: [facility] Address: [address] [place] [address] Performed By: #### 3 255-7 ####[facility] LABORATORYCLIA [id number] [address] [place] Fibrinogen Coag (PPP) [Mass/Vol] 135 mg/dL Low 200-400 [facility] Comment on above: Order Comment: Speci men Type: BLOOD SPECIMENOrdering Facility: [facility] Address: [address] [place] [address] Performed By: #### 3 255-7, 72311-8, 90976-5, 27750-2 ####[facility] LABORATORYCLIA [id number] [address] [place] Glucose Glucometer (BldC) [M ass/Vol]Ordered By: Dr. Alonzo on 12-18-2022 Glucose [Mass/Vol] 130 mg/dL 74-106 [facility] Comment on above: MANAGEMENT OF PATIEN T CARE PER NURSING PROTOCOL HBV core Ab Ser Qlon 023 HBV core Ab Ql (S) Negative Normal Negative [facility] Comment on above: Order Comment: Speci men Type: BLOOD SPECIMENOrdering Facility: [facility] Address: [address] [place] [address] Result Comment: No e vidence of current or past infection with Hepatitis B virus. Should recent infection be suspected, repeat testing may be considered 3-4 weeks after this draw. Performed By: #### 1 6933-4 ####[facility] LABCLIA [id number] [address] [place] HBV surface Ab Ql (S)on HBV surface Ab Qn (S) 8.87 mIU/mL Low >=11.50 [facility] Comment on above: Order Comment: Speci men Type: BLOOD SPECIMENOrdering Facility: [facility] Address: [address] [place] [address] Performed By: #### 2 2322-2 ####[facility] LABORATORYCLIA [id number] [address] [place] HBV surface Ab Ser Qlon HBV surface Ab Ql (S) Indeterminate Abnormal Positive [facility] Comment on above: Order Comment: Speci [facility] Type: BLOOD SPECIMENOrdering Facility: [facility] Address: [address] [place] [address] Performed By: #### 2 2322-2 ####[facility] LABORATORYCLIA [id number] [address] [place] HBV surface Ag Ser Qlon 03- HBV surface Ag Ql (S) Non-Reactive Normal Nonreactive [facility] Comment on above: Order Comment: Speci men Type: BLOOD SPECIMENOrdering Facility: [facility] Address: [address] [place] [address] Performed By: #### 5 195-3, 82669-8, 62442-3 ####[facility] LABORATORYCLIA [id number] [address] HCV Ab Ser Qlon 12-18-2022 HCV Ab Ql (S) Non-Reactive Normal Nonreactive [facility] Comment on above: Order Comment: Speci men Type: BLOOD SPECIMENOrdering Facility: [facility] Address: [address] [place] [address] Result Comment: The result suggests no evidence of active infection with Hepatitis C virus. Should recent infection be suspected, repeat testing may be considered 4-6 weeks after this draw. Performed By: #### 5 195-3, 87237-1, 66132-6 ####[facility] LABORATORYCLIA [id number] [address] HIV 1+2 Ab IA Qlon HIV 1 and 2 Ab IA.rapid Nom Normal [facility] Comment on above: Order Comment: Speci men Type: BLOOD SPECIMENOrdering Facility: [facility] Address: [address] [place] [address] Result Comment: Test not indicated. Performed By: #### 5 195-3, 87588-2, 35006-7 ####[facility] LABORATORYCLIA [id number] [address] HIV 1+2 Ab+HIV1 p24 Ag IA Ql Non-Reactive Normal Nonreactive [facility] Comment on above: Order Comment: Speci men Type: BLOOD SPECIMENOrdering Facility: [facility] Address: [address] [place] [address], [place] [address] Result Comment: [place] Rev. Code 3701.243(E): This information has been [...] reference range. Performed By: #### 5 195-3, 96280-0, 89551-9 ####[facility] HOSPITALCLIA [id number] [place] [address] [place] HIVINT Normal [facility] Comment on above: Order Comment: Speci men Type: BLOOD SPECIMENOrdering Facility: [facility] Address: [address] [place] [address] Result Comment: No e vidence of HIV-1 or HIV-2 infection. Should recent infection be suspected, repeat testing may be considered 2-3 weeks after this draw. Performed By: #### 5 195-3, 61107-1, 88969-0 ####[facility] LABORATORYCLIA [id number] [place] [address] [place] Haptoglob SerPl-mCncon 12-18 Haptoglobin [Mass/Vol] 76 mg/dL Normal 31-238 [facility] Comment on above: Order Comment: Speci men Type: BLOOD SPECIMENOrdering Facility: [facility] Address: [address] [facility] [place] [address] Performed By: #### 4 542-7, 2532-0 ####[facility] LABORATORYCLIA [id number] [place] [address] [place] Hematocrit Auto (Bld) [Volum e fraction]Ordered By: Dr. Alonzo on 12-18-2022 Hematocrit (Bld) [Volume fraction] 39.9 % 37-47 [facility] LDH SerPl-cCncon 12-18-2022 LDH [Catalytic activity/Vol] 491 U/L High 135-214 [facility] Comment on above: Order Comment: Speci men Type: BLOOD SPECIMENOrdering Facility: [facility] Address: [place] [address] Performed By: #### 4 542-7, 2532-0 ####[facility] LABORATORYCLIA [id number] [place] [address] [place] Laboratory - Chemistry and C hemistry - challengeOrdered By: Dr. Alonzo on 12-18-2022 ALP [Catalytic activity/Vol] 70 U/L 45-117 [facility] ALT [Catalytic activity/Vol] 37 U/L 13-56 [facility] CO2 [Moles/Vol] 21.0 mmol/L 21.0-32.0 [facility] Globulin (S) [Mass/Vol] 3.2 g/dL 2.2-4.2 [facility] Urea nitrogen/Creatinine [Mass ratio] 42.3 mg/mg 10-20 [facility] Laboratory - Chemistry and C hemistry - challengeOrdered By: Dr. Robert on 12-18-2022 Magnesium [Mass/Vol] 1.6 mg/dL 1.6-2.6 [facility] Laboratory - Hematology and Cell countsOrdered By: Dr. Alonzo on 12-18-2022 Anisocytosis Ql (Bld) 1+ [facility] Erythrocyte distribution width (RBC) [Entitic vol] 56.1 fL 35.1-43.9 [facility] Erythrocyte distribution width (RBC) [Ratio] 14.7 % 11.6-14.6 [facility] Immature granulocytes/100 WBC (Bld) 0.800 % 0.0-0.9 [facility] Comment on above: IG% - Immature Granu locytes (promyelocytes, myelocytes and metamyelocytes) > 1% indicates that a LEFT SHIFT is Present. MCH (RBC) [Entitic mass] 33.0 pg 27.0-32.0 [facility] Nucleated RBC/100 WBC (Bld) [Ratio] 0 % 0-5 [facility] MCHC Auto (RBC) [Mass/Vol]Or dered By: Dr. Alonzo on 12-18-2022 MCHC (RBC) [Mass/Vol] 32.1 g/dL 32-36 [facility] Macrocytes detectionOrdered By: Dr. Alonzo on 12-18-2022 Macrocytes Ql (Bld) 1+ [facility] Magnesium SerPl-mCncon 12-18 Magnesium [Mass/Vol] 1.4 mg/dL Low 1.7-2.3 [facility] Comment on above: Order Comment: Speci men Type: BLOOD SPECIMENOrdering Facility: [facility] Address: [address] [place] [address] Performed By: #### 2 777-1, 02718-4, 87203-2, 81005-7 ####[facility] LABORATORYCLIA [id number] [address] [place] NURSING PROGon 12-18-2022 NURSING PROG Normal [facility] No Panel InformationOrdered By: Dr. 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 There are infrequent red cell fragments. Leukocytes have normal morphology. Normal [facility] Comment on above: Order Comment: Speci men Type: BLOOD SPECIMENOrdering Facility: [facility] Address: [address] [place] [address] Performed By: #### 5 7782-5, SHERIF ####[facility] LABORATORYCLIA [id number] [address] PT panel Coag (PPP)on 2022 INR Coag (PPP) [Relative time] 1.9 {INR} High 0.9-1.3 [facility] Comment on above: Order Comment: Speci men Type: BLOOD SPECIMENOrdering Facility: [facility] Address: [address] [place] [address] Result Comment: Adele min K Antagonist (VKA) Therapeutic Range: INR 2 to 3 (Target INR of 2.5)Note: For patients treated with VKA drugs, such as warfarin, the [place] [employer] 2012 Guideline recommends [...] Chest 2012, 141:7S-47SNishcristo RA, et al. [facility] 2017, 70: 252-289 Performed By: #### 3 255-7, 04399-9, 31040-3, 95889-9 ####[facility] LABORATORYCLIA [id number] [place] [id number] [place] [facility] PT Coag (PPP) [Time] 19.8 s High 9.7-13.0 [facility] Comment on above: Order Comment: Speci men Type: BLOOD SPECIMENOrdering Facility: [facility] Address: [address] [place] [address] Performed By: #### 3 255-7, 28955-4, 06745-7, 35842-4 ####[facility] LABORATORYCLIA [id number] [place] [address] [facility] Phosphate SerPl-mCncon 12-18 Phosphate [Mass/Vol] 1.2 mg/dL Low 2.7-4.8 [facility] Comment on above: Order Comment: Speci men Type: BLOOD SPECIMENOrdering Facility: [facility] Address: [address] [place], [place] [address] Performed By: #### 2 777-1, 50367-9, 28857-4, 39809-2 ####[facility] LABORATORYCLIA [id number] [address] Platelets bldOrdered By: Dr. Alonzo on 12-18-2022 Platelets (Bld) [#/Vol] 19 10*3/uL 150-450 [facility] Comment on above: CRITICAL VALUE VERIF IED. CALLED TO Susan ROSENBERG RN ICU12/18/22 0403 Santhosh Hensley.RESULTS READ BACK BY SAME. Procalcitonin SerPl-mCncon 0 12-18-2022 Procalcitonin [Mass/Vol] 4.83 ng/mL High <0.09 [facility] Comment on above: Order Comment: Speci men Type: BLOOD SPECIMENOrdering Facility: [facility] Address: [address] [place] [address] Result Comment: For a guided interpretation of test results, please visit the Change in Procalcitonin Calculator, [email or web address]. Performed By: #### 2 777-1, 69187-7, 36003-7, 94659-5 ####[facility] LABORATORYCLIA [id number] [place] [id number] [facility] Review by pathologistOrdered By: Dr. Alonzo on 12-18-2022 Pathologist review Ifeanyi (Unsp spec) [Interp] Madeline anderson [facility] Pathologist review Ifeanyi (Unsp spec) [Interp] Reviewed [facility] Comment on above: Previous reported re sult: Madeline anderson Edited by: RGOOD on 03/07/23:1332Neutrophilic leukocytosis.Macrocytosis. Marked Thrombocytopenia.Clinical correlation necessary.Bret Bridges M.D. 12/18/22 AMENDED REPORT 12/18/22 1332 PATH REV previously reported as: February SARS-CoV-2 RNA Resp Ql CY+p robeon 12-18-2022 SARS-CoV-2 (COVID-19) RNA CY+probe Ql (Resp) COVID 19 RESULT: Not detected The method used is RT-PCR or an equivalent NAAT method. Reference Range(the expected result in uninfected individuals): Not detected Normal [facility] Comment on above: Performed By: #### 9 4500-6 ####[facility] LABORATORYCLIA [id number] [address] OF [facility] STAPH AUREUS PCRon S. aureus and MRSA panel CY+probe (Nose) Normal Negative [facility] Comment on above: Order Comment: Cary lujan Type: SWAB OF INTERNAL NOSEOrdering Facility: [facility] Address: [address] [place] [address] Result Comment: Nega tive for Staphylococcus aureus by PCR.Negative for MRSA by PCR Performed By: #### S APCR ####[facility]ITAL[facility]IA [id number] [address] [place] Salicylates SerPl-mCncon Salicylates [Mass/Vol] mg/dL Low 3.0-30.0 [facility] Comment on above: Order Comment: Cary lujan Type: BLOOD SPECIMENOrdering Facility: [facility] Address: [address] [place] [address] Result Comment: The therapeutic range varies and has been reported to be 3.0 to 10.0 mg/dL for anti pyretic/analgesic conditions and 15.0 to 30.0 mg/dL for anti inflammatory/rheumatic fever conditions. Ranges published by the instrument dustless operator.Reference ranges and high/low indicator flags are provided as general guidelines only. The treating physician must determine appropriate target levels/dosing based on the specific clinical situation. Performed By: #### 3 298-7, 4024-6 ####[facility] LABORATORYCLIA [id number] [address] [place] Serum or plasma albumin cony urement (mass/volume)Ordered By: Dr. Alonzo on 12-18-2022 Albumin [Mass/Vol] 2.0 g/dL 3.2-5.0 [facility] Serum or plasma albumin/glob ulin mass ratioOrdered By: Dr. Alonzo on 12-18-2022 Albumin/Globulin [Mass ratio] 0.6 {ratio} 0.9-2.4 [facility] Serum or plasma calcium cony urement (mass/volume)Ordered By: Dr. Alonzo on 12-18-2022 Calcium [Mass/Vol] 9.8 mg/dL 8.5-10.1 [facility] Serum or plasma creatinine m easurement (mass/volume)Ordered By: Dr. Alonzo on 12-18-2022 Creatinine [Mass/Vol] 0.90 mg/dL 0.55-1.02 [facility] Comment on above: The validity of the calculated GFR & GFRAA in patients over 70 years has not been determined. Clinical correlation is essential. Serum or plasma urea nitroge n measurement (mass/volume)Ordered By: Dr. Alonzo on 12-18-2022 Urea nitrogen [Mass/Vol] 38 mg/dL 7-18 [facility] TYPE + SCREENon 12-18-2022 ABO A Normal [facility] Comment on above: Order Comment: Speci men Type: BLOOD SPECIMENOrdering Facility: [facility] Address: [address] [place] [address] Performed By: #### T SCR, DAGT ####[facility] BLOOD BANKCLIA [id number] [address] [place] HISTORICAL AB SCR STATUS Negative Normal [facility] Comment on above: Order Comment: Speci men Type: BLOOD SPECIMENOrdering Facility: [facility] Address: [address] [address] Performed By: #### T SCR, DAGT ####[facility] BLOOD BANKCLIA [id number] [place] [address] [place] Rh Nom (Bld) Positive Normal [facility] Comment on above: Order Comment: Speci men Type: BLOOD SPECIMENOrdering Facility: [facility] Address: [address] [place] [address] Performed By: #### T SCR, DAGT ####[facility] BLOOD BANKCLIA [id number] [address] STATES OF [facility] TYPE AND SCREEN EXPIRATION 12/21/2022 23:59 Normal [facility] Comment on above: Order Comment: Speci men Type: BLOOD SPECIMENOrdering Facility: [facility] Address: [address] [address] Performed By: #### T SCR, DAGT ####[facility] BLOOD BANKCLIA [id number] [address] [place] Thin prep Papanicolaou smear with manual screeningOrdered By: Dr. Alonzo on 12-18-2022 Thin prep Papanicolaou smear with manual screening 78 U/L 15-37 [facility] Thin prep Papanicolaou smear with manual screening 10 5-15 [facility] Urinalysis complete panel (U )on 12-18-2022 Bacteria LM.HPF (Urine sed) [#/Area] Rare Abnormal None Seen [facility] Comment on above: Order Comment: Speci men Type: URINE SPECIMENOrdering Facility: [facility] Address: [address] [place] [address] Performed By: #### 2 4356-8 ####[facility] LABORATORYCLIA [id number] [address] [place] Bilirubin Ql (U) Negative Normal Negative [facility] Comment on above: Order Comment: Speci men Type: URINE SPECIMENOrdering Facility: [facility] Address: [address] [place] [address] Performed By: #### 2 4356-8 ####[facility] LABORATORYCLIA [id number] [address] [place] Clarity (Unsp spec) Clear Normal Clear [facility] Comment on above: Order Comment: Speci men Type: URINE SPECIMENOrdering Facility: [facility] Address: [address] [place] [address] Performed By: #### 2 4356-8 ####[facility] LABORATORYCLIA [id number] [address] Color (U) Yellow Normal yellow [facility] Comment on above: Order Comment: Speci men Type: URINE SPECIMENOrdering Facility: [facility] Address: [address] [place] [address] Performed By: #### 2 4356-8 ####[facility] LABORATORYCLIA [id number] [address] Epithelial cells LM.HPF (Urine sed) [#/Area] Few Abnormal None Seen [facility] Comment on above: Order Comment: Speci men Type: URINE SPECIMENOrdering Facility: [facility] Address: [address] [place] [address] Performed By: #### 2 4356-8 ####[facility] LABORATORYCLIA [id number] [address] Glucose Test strip (U) [Mass/Vol] Negative Normal Trace, Negative [facility] Comment on above: Order Comment: Speci men Type: URINE SPECIMENOrdering Facility: [facility] Address: [address] [place] [address] Performed By: #### 2 4356-8 ####[facility] LABORATORYCLIA [id number] [address] Hemoglobin Ql (U) Trace Normal Negative, Trace [facility] Comment on above: Order Comment: Speci men Type: URINE SPECIMENOrdering Facility: [facility] Address: [address] [place] [address] Performed By: #### 2 4356-8 ####[facility] LABORATORYCLIA [id number] [address] Hyaline casts (Urine sed) [#/Area] 1-3 /LPF Abnormal 0 /LPF [facility] Comment on above: Order Comment: Speci men Type: URINE SPECIMENOrdering Facility: [facility] Address: [address] [place] [address] Performed By: #### 2 4356-8 ####[facility] LABORATORYCLIA [id number] [address] STATES [facility] Ketones Ql (U) Trace Normal Negative, Trace [facility] Comment on above: Order Comment: Speci men Type: URINE SPECIMENOrdering Facility: [facility] Address: [address] [place] [address] Performed By: #### 2 4356-8 ####[facility] LABORATORYCLIA [id number] [address] Leukocyte esterase Test strip Ql (U) 25 Jennifer/uL Normal Negative, 25 Jennifer/uL [facility] Comment on above: Order Comment: Speci men Type: URINE SPECIMENOrdering Facility: [facility] Address: [address] [place] [address] Performed By: #### 2 4356-8 ####[facility] LABORATORYCLIA [id number] [place] [address] [place] Nitrite Ql (U) Negative Normal Negative [facility] Comment on above: Order Comment: Speci men Type: URINE SPECIMENOrdering Facility: [facility] Address: [address] [place] [address] Performed By: #### 2 4356-8 ####[facility] LABORATORYCLIA [id number] [address] [place] pH (U) 5.5 [pH] Normal 5.0-8.0 [facility] Comment on above: Order Comment: Speci men Type: URINE SPECIMENOrdering Facility: [facility] Address: [address] [place] [address] Performed By: #### 2 4356-8 ####[facility] LABORATORYCLIA [id number] [address] [place] Protein (U) [Mass/Vol] Trace Normal Trace, Negative [facility] Comment on above: Order Comment: Speci men Type: URINE SPECIMENOrdering Facility: [facility] Address: [address] [place] [address] Performed By: #### 2 4356-8 ####[facility] LABORATORYCLIA [id number] [address] STATES [facility] RBC LM.HPF (Urine sed) [#/Area] 6-10 /HPF Abnormal 0-3 /HPF [facility] Comment on above: Order Comment: Speci men Type: URINE SPECIMENOrdering Facility: [facility] Address: [address] [place] [address] Performed By: #### 2 4356-8 ####[facility] LABORATORYCLIA [id number] [address] Specific gravity (U) [Rel density] 1.024 Normal 1.005-1.030 [facility] Comment on above: Order Comment: Speci men Type: URINE SPECIMENOrdering Facility: [facility] Address: [address] [place] [address] Performed By: #### 2 4356-8 ####[facility] LABORATORYCLIA [id number] [address] Urobilinogen Ql (U) Normal Normal Negative [facility] Comment on above: Order Comment: Speci men Type: URINE SPECIMENOrdering Facility: [facility] Address: [address] [place] [address] Performed By: #### 2 4356-8 ####[facility] LABORATORYCLIA [id number] [address] STATES [facility] WBC LM.HPF (Urine sed) [#/Area] 6-10 /HPF Abnormal 0-5 /HPF [facility] Comment on above: Order Comment: Speci men Type: URINE SPECIMENOrdering Facility: [facility] Address: [address] [place] [address] Performed By: #### 2 4356-8 ####[facility] LABORATORYCLIA [id number] [address] [place] XR ABDOMEN 1V SUPINEon 12-18 XR ABDOMEN 1V SUPINE Normal [facility] XR CHEST 1V FRONTALon 2022 XR CHEST 1V FRONTAL Normal [facility] XR CHEST 1V FRONTAL Normal [facility] aPTT PPPon 12-18-2022 aPTT Coag (PPP) [Time] 37.9 s High 23.0-32.4 [facility] Comment on above: Order Comment: Speci men Type: BLOOD SPECIMENOrdering Facility: [facility] Address: [address] [place] [address] Performed By: #### 3 255-7, 26968-5, 16420-1, 20415-1 ####[facility] LABORATORYCLIA [id number] [place] [address] [place] vWF Cp Act/Nor PPP Chroon vWf cleaving protease actual/normal Chromogenic method (PPP) [Rel catalytic activity/Vol] >114 Normal >67 [facility] Comment on above: Order Comment: Speci men Type: BLOOD SPECIMENOrdering Facility: [facility] Address: [address] [place] [address] Result Comment: This test was developed and its performance characteristics determined by [facility] [place] ([facility]). It has not been cleared or approved by the FDA. -[facility] is regulated under CLIA as qualified to perform high-complexity testing. This test is used for clinical purposes. It should not be regarded as investigational or for research. Performed By: #### 5 3622-7 ####[facility] LABCLIA [id number] [place] [address] [place] Basophil percentageOrdered B y: Dr. Alonzo on 12-17-2022 Ammonia (P) [Moles/Vol] 41.0 umol/L 11-32 [facility] LDH [Catalytic activity/Vol] 1113 U/L 84-246 [facility] Comment on above: Slight Hemolysis, Re sult may be falsely increased. Direct bilirubinOrdered By: Dr. Alonzo on 12-17-2022 Bilirubin.direct [Mass/Vol] 0.97 mg/dL 0.00-0.30 [facility] Comment on above: Specimen is hemolyze d. The presence of hemoglobin can falsley depress direct bilirubin reslts. Collection of a new specimen is suggested if clinicaly indicated. Gram stain for investigation of transfusion reactionOrdered By: Dr. Pham on 12-17-2022 Microscopic observation Gram stain Nom (Unsp spec) [facility] Hemoglobin in reticulocytes (mass per reticulocyte)Ordered By: Dr. Alonzo on 12-17-2022 Hemoglobin (Reticulocytes) [Entitic mass] 36.5 pg 30-35 [facility] Laboratory - Chemistry and C hemistry - challengeOrdered By: Dr. Aldana on 12-17-2022 Free T4 [Mass/Vol] 1.24 ng/dL 0.76-1.46 [facility] No Panel InformationOrdered By: Dr. Alonzo on 12-17-2022 Miscellaneous Test See comment [facility] Comment on above: TEST RESULT LIMITSAD AMTS13 Activity [id number] Activity, 67.0 % >66.8Comment Severe deficiency of IHDNDM99 (less than 10% activity) is arelatively specific finding in patients with a clinical diagnosis of either hereditary or acquired thrombotic thrombocytopenic purpura (TTP). Normal to moderately reduced LGTNTT67 activity results do not exclude a diagnosis of TTP. Conditions that could have MBJLHH50 activity greater than 10% include hemolytic uremic syndrome (HUS), atypical hemolytic uremic syndrome (aHUS), and other thrombotic microangiopathies associated with hematopoietic stem cell and solid organ transplantation, liver disease, DIC, sepsis, , or effects of certain medications (eg, clopidogrel, cyclosporine, mitomycin C, quinine). __ TESTING PERFORMED AT [facility]. ORIGINAL REPORT ON FILE IN LAB CONTAINS ADDITIONAL TEST SITE INFORMATION. Immature Platelet Fraction 27.4 % 1.0-7.9 [facility] Comment on above: Low PLT + Low IPF marroquin ggest a bone marrow production disorderLow PLT + high IPF suggests peripheral destruction(e.g.ITP, TTP, HIT, DIC, autoimmune) or bone marrow recoveryTrending of serial IPF measurements is recommended when evaluating for bone marrow responesValue above normal range indicates an increase in RBC cellular response from bone marrow. Immature Reticulocyte Fraction 13.30 % 3.00-15.90 [facility] Reticulocyte Count 2.23 % 0.5-1.5 [facility] D-Dimer Quantitative (PE/DVT) 9.79 FEU/ug/m 0.27-0.49 [facility] Comment on above: D-Dimer ELEVATED (>0 .49): Additional studies and clinicalassessments are indicated to conclude diagnosis of:Deep Vein Thrombosis (DVT) or Pulmonary Embolism (PE) Haptoglobin < 10 mg/dL [address] [facility] Comment on above: Performed at: [address] Director: Marco Antonio Sandhu PhD, Phone: [phone] No Panel InformationOrdered By: Dr. Aldana on 12-17-2022 Fibrinogen 147 mg/dl 203-444 [facility] Absolute lymphocyte countOrd ered By: Germaine Presley on 12-16-2022 Lymphocytes Auto (Unsp spec) [#/Vol] 1.71 10*3/uL 0.83-4.51 [facility] Assessment of wrist artery p atency prior to arterial punctureOrdered By: Dr. Pham on 12-16-2022 Arterial patency Wrist artery --pre arterial puncture Positive [facility] Base excessOrdered By: Dr. Estrella english on 12-16-2022 Base excess Calc (BldV) [Moles/Vol] 0 mmol/L -2-2 [facility] Base excess Calc (BldV) [Moles/Vol] 2 mmol/L -2-2 [facility] Basophil percentageOrdered B y: Dr. Pham on 12-16-2022 Lactate [Moles/Vol] 2.1 mmol/L 0.4-2.0 [facility] Comment on above: Critical Result(s) C alled at: 23:35:19 12/16/2022 by: Javier Lezama TO CHIQUITA KINGSTON RN (ICU) Results read back by same. Basophil percentage 21.1 mmol/L - [facility] Basophils/100 WBC (Bld) 99 % 95-99 [facility] Triglyceride [Mass/Vol] 117 mg/dL <199 [facility] Comment on above: The drugs N-Acetylcy steine and Metamizole may falsely depress this assay.Serum Triglycerides Reference Interval Normal <150 mg/dL Borderline high 150 - 199 mg/dL High 200 - 499 mg/dL Very High > or = 500 mg/dL Basophil percentage 26.4 mmol/L - [facility] Basophils/100 WBC (Bld) 97 % 95-99 [facility] Lactate [Moles/Vol] 8.4 mmol/L 0.4-2.0 [facility] Comment on above: Critical Result(s) C alled at: 18:01:22 12/16/2022 by: Su Silva to Orqu[place]. Results read back by same. Basophil percentageOrdered B y: Germaine Presley on 12-16-2022 Basophil percentage 10-25 SEEN /hpf 0-5 [facility] Basophils/100 WBC (Bld) 0.4 % 0-1 [facility] Bilirubin [Mass/Vol] 3.20 mg/dL 0.20-1.00 [facility] Comment on above: For patients on eltr ombopag therapy, use of Dimension [place] TBIL is not recommended. Chloride [Moles/Vol] 93 mmol/L 98-107 [facility] Eosinophils/100 WBC (Bld) 4.2 % 0-5 [facility] Glucose [Mass/Vol] 154 mg/dL 74-106 [facility] Comment on above: Fasting Glucose resu lt greater than or equal to 126 mg/dL suggests DIABETES MELLITUS per A.D.A. criteria. Neutrophils (Bld) [#/Vol] 9.7 10*3/uL 2.0-7.7 [facility] Neutrophils/100 WBC (Bld) 71.7 % 47-70 [facility] Potassium [Moles/Vol] 3.7 mmol/L 3.5-5.1 [facility] Comment on above: Slight Hemolysis, Re sult may be falsely increased. Protein [Mass/Vol] 7.3 g/dL 6.4-8.2 [facility] Sodium [Moles/Vol] 138 mmol/L 136-145 [facility] WBC (Bld) [#/Vol] 13.5 10*3/uL 4.4-11.0 [facility] Bilirubin Test strip Ql (U)O rdered By: Germaine Presley on 12-16-2022 Bilirubin Ql (U) Negative Negative [facility] Blood erythrocytes count (nu mber/volume)Ordered By: Germaine Presley on 12-16-2022 RBC (Bld) [#/Vol] 5.36 10*6/uL 4.2-5.4 [facility] Blood hemoglobin measurement (mass/volume)Ordered By: Germaine Presley on 12-16-2022 Hemoglobin (Bld) [Mass/Vol] 17.8 g/dL 12.0-15.0 [facility] Blood lymphocytes/100 leukoc ytesOrdered By: Germaine Presley on 12-16-2022 Lymphocytes/100 WBC (Bld) 12.6 % 19-41 [facility] Blood manual differential co mment interpretation (narrative result)Ordered By: Germaine Presley on 12-16-2022 Manual differential comment Ifeanyi (Bld) [Interp] SCANNED [facility] Comment on above: THROMBOCYTOPENIA Blood monocytes/100 leukocyt esOrdered By: Germaine Presley on 12-16-2022 Monocytes/100 WBC (Bld) 10.4 % 0-10 [facility] Blood platelet mean volumeOr dered By: Germaine Presley on 12-16-2022 Platelet mean volume (Bld) [Entitic vol] TNP [facility] Comment on above: Test not performed CO2 (BldA) [Partial pressure ]Ordered By: Dr. Pham on 12-16-2022 CO2 (Bld) [Partial pressure] 21.6 mm[Hg] 35-45 [facility] CO2 (Bld) [Partial pressure] 38.2 mm[Hg] 35-45 [facility] Determination of erythrocyte mean corpuscular volume (MCV)Ordered By: Germaine Presley on 12-16-2022 MCV (RBC) [Entitic vol] 100.9 fL 81-99 [facility] Glucose Glucometer (BldC) [M ass/Vol]Ordered By: Dr. Han on 12-16-2022 Glucose [Mass/Vol] 147 mg/dL 74-106 [facility] Comment on above: MANAGEMENT OF PATIEN T CARE PER NURSING PROTOCOL Hematocrit Auto (Bld) [Volum e fraction]Ordered By: Germaine Presley on 12-16-2022 Hematocrit (Bld) [Volume fraction] 54.1 % 37-47 [facility] INR in Blood by Coagulation assayOrdered By: Dr. Pham on 12-16-2022 INR Coag (Bld) [Relative time] 1.1 {INR} [facility] Ketones Test strip Ql (U)Ord ered By: Germaine Presley on 12-16-2022 Ketones Ql (U) 5 mg/dl Negative [facility] Laboratory - Chemistry and C hemistry - challengeOrdered By: Dr. Pham on 12-16-2022 CK [Catalytic activity/Vol] 266 U/L 26- [facility] Comment on above: Moderate Hemolysis, Result may be falsely increased. CK [Catalytic activity/Vol] 193 U/L [facility] Comment on above: Moderate Hemolysis, Result may be falsely increased. Laboratory - Chemistry and C hemistry - challengeOrdered By: Germaine Presley on 12-16-2022 ALP [Catalytic activity/Vol] 106 U/L 45-117 [facility] ALT [Catalytic activity/Vol] 71 U/L 13-56 [facility] CO2 [Moles/Vol] 27.0 mmol/L 21.0-32.0 [facility] Globulin (S) [Mass/Vol] 4.2 g/dL 2.2-4.2 [facility] Urea nitrogen/Creatinine [Mass ratio] 12.4 mg/mg 10-20 [facility] Laboratory - CoagulationOrde red By: Dr. Pham on 12-16-2022 aPTT Coag (Bld) [Time] 23.5 s 24.1-36.2 [facility] PT Coag (PPP) [Time] 14.1 s 11.7-14.9 [facility] Laboratory - Drug toxicology Ordered By: Germaine Presley on 12-16-2022 Amphetamines Ql (U) Negative <1000 ng/mL [facility] Benzodiazepines Ql (U) Positive < 200 ng/mL [facility] Cannabinoids Screen Ql (U) Negative < 50 ng/mL [facility] Cocaine Ql (U) Negative < 300 ng/mL [facility] Opiates Ql (U) Negative < 300 ng/mL [facility] Laboratory - Hematology and Cell countsOrdered By: Germaine Presley on 12-16-2022 Erythrocyte distribution width (RBC) [Entitic vol] 53.5 fL 35.1-43.9 [facility] Erythrocyte distribution width (RBC) [Ratio] 14.3 % 11.6-14.6 [facility] Immature granulocytes/100 WBC (Bld) 0.700 % 0.0-0.9 [facility] Comment on above: IG% - Immature Granu locytes (promyelocytes, myelocytes and metamyelocytes) > 1% indicates that a LEFT SHIFT is Present. MCH (RBC) [Entitic mass] 33.2 pg 27.0-32.0 [facility] Nucleated RBC/100 WBC (Bld) [Ratio] 0 % 0-5 [facility] MCHC Auto (RBC) [Mass/Vol]Or dered By: Germaine Presley on 12-16-2022 MCHC (RBC) [Mass/Vol] 32.9 g/dL 32-36 [facility] Mucus LM Ql (Urine sed)Order ed By: Germaine Presley on 12-16-2022 Mucus Ql (Urine sed) 0 SEEN /hpf [facility] Nitrite Test strip Ql (U)Ord ered By: Germaine Presley on 12-16-2022 Nitrite Ql (U) Negative Negative [facility] No Panel InformationOrdered By: Dr. Pham on 12-16-2022 Bedside Blood Gas PEEP 5 [facility] Bld Gas Crit Called To/Read Back By Yes [facility] Blood Gas Oxygen Percent 30 [facility] Blood Gas Respiration Rate 14 [facility] Blood Gas Sample Site R Radial [facility] Blood Gas Specimen Type ART [facility] Blood Gas Tidal Volume 450 [facility] Blood Gas Total CO2 22 mmol/L [facility] Blood Gas Vent Mode AC [facility] Oxygen Delivery Device ET Tube [facility] Parathyroid Hormone (Intact) 15.4 pg/mL 18.4-80.1 [facility] Vitamin D 25-Hydroxy 32.7 ng/mL [facility] Comment on above: Vitamin D 25(OH) Sta tus Range Deficiency <20 ng/mL (50nmol/L) Insufficiency 20 - 30 ng/mL (50 - 75 nmol/L) Sufficiency 30 - 100 ng/mL (75 - 250 nmol/L) Toxicity >100 ng/mL (>250 nmol/L) Blood Gas Liter Flow 2.0 /min [facility] Blood Gas Sample Site R Radial [facility] Blood Gas Specimen Type ART [facility] Blood Gas Total CO2 28 mmol/L [facility] No Panel InformationOrdered By: Germaine Presley on 12-16-2022 MDMA (Ecstasy) Screen Positive < 500 ng/mL [facility] Urine Barbiturates Screen Negative < 200 ng/mL [facility] Urine Drug Screen Comment [facility] Comment on above: CONFIRMATORY TESTING FOR ALL [...] Urine Methadone Screen Negative < 300 ng/mL [facility] Thyroid Stimulating Hormone (TSH) 19.60 uIU/mL 0.358-3.74 [facility] Estimated Creatinine Clearance Calc 23.98 ml/min [facility] Estimated GFR (MDRD) Amer 36 mL/min >60 [facility] Comment on above: GFR Calc Estimated GFR (MDRD) Non-Af Amer 30 mL/min >60 [facility] Comment on above: Non- GFR Calc Ethyl Alcohol Level < 3.0 mg/dL [facility] Comment on above: The serum:whole bloo d ethanol ratio is approximately 1.14and varies slightly with hematocrit. Medical Alcohol reference interval and critical value innon-tolerant individuals; 50 - 100 Impairment 100 Intoxication 100 - 250 Severe Poisoning 250 - 400 Deep/possible fatal coma Oxygen (BldA) [Partial press ure]Ordered By: Dr. Pham on 12-16-2022 Oxygen (Bld) [Partial pressure] 91 mmHG 75-100 [facility] Oxygen (Bld) [Partial pressure] 90 mmHG 75-100 [facility] Platelets bldOrdered By: Mary Ann Presley on 12-16-2022 Platelets (Bld) [#/Vol] 31 10*3/uL 150-450 [facility] Comment on above: CRITICAL VALUE VERIF IED. CALLED TO JEFF12/16/22 [id number] Peggy Kwok.RESULTS READ BACK BY SAME. Protein Test strip Ql (U)Ord ered By: Germaine Presley on 12-16-2022 Protein Ql (U) 100 mg/dl Negative [facility] Review by pathologistOrdered By: Germaine Presley on 12-16-2022 Pathologist review Ifeanyi (Unsp spec) [Interp] May foll [facility] Serum or plasma albumin cony urement (mass/volume)Ordered By: Germaine Presley on 12-16-2022 Albumin [Mass/Vol] 3.1 g/dL 3.2-5.0 [facility] Serum or plasma albumin/glob ulin mass ratioOrdered By: Germaine Presley on 12-16-2022 Albumin/Globulin [Mass ratio] 0.7 {ratio} 0.9-2.4 [facility] Serum or plasma calcium cony urement (mass/volume)Ordered By: Germaine Presley on 12-16-2022 Calcium [Mass/Vol] 14.9 mg/dL 8.5-10.1 [facility] Comment on above: Critical Result(s) C alled at: 16:53:23 12/16/2022 by: Su Heard. Results read back by same. Serum or plasma creatinine m easurement (mass/volume)Ordered By: Germaine Presley on 12-16-2022 Creatinine [Mass/Vol] 1.78 mg/dL 0.55-1.02 [facility] Comment on above: The validity of the calculated GFR & GFRAA in patients over 70 years has not been determined. Clinical correlation is essential. Serum or plasma urea nitroge n measurement (mass/volume)Ordered By: Germaine Presley on 12-16-2022 Urea nitrogen [Mass/Vol] 22 mg/dL 7-18 [facility] Squamous epithelial cells de tection in urine sediment by light microscopyOrdered By: Germaine Presley on 12-16-2022 Epithelial cells.squamous LM Ql (Urine sed) 0-5 SEEN /hpf 5-10 [facility] Thin prep Papanicolaou smear with manual screeningOrdered By: Germaine Presley on 12-16-2022 Thin prep Papanicolaou smear with manual screening 427 U/L 15-37 [facility] Comment on above: Slight Hemolysis, Re sult may be falsely increased. Thin prep Papanicolaou smear with manual screening 18 5-15 [facility] Urine blood detectionOrdered By: Germaine Presley on 12-16-2022 RBC Ql (U) 250 /ul Negative [facility] RBC Ql (U) 0-5 SEEN /hpf 0-5 [facility] Urine clarityOrdered By: Mary Ann Presley on 12-16-2022 Clarity (U) Cloudy Clear [facility] Urine color determinationOrd ered By: Germaine Presley on 12-16-2022 Color (U) Lilly Yellow [facility] Urine glucose detectionOrder ed By: Germaine Presley on 12-16-2022 Glucose Ql (U) Normal mg/dl Normal [facility] Urine leukocyte esterase det ection by dipstickOrdered By: Germaine Presley on 12-16-2022 Leukocyte esterase Test strip Ql (U) 25 /ul Negative [facility] Urine pHOrdered By: Germaine tatum on 12-16-2022 pH (U) 6.5 [pH] 5.0 - 8.0 [facility] Urine phencyclidine (PCP) de tectionOrdered By: Germaine Presley on 12-16-2022 Phencyclidine Ql (U) Negative < 25 ng/mL [facility] Urine sediment bacteria coun t by microscopy (number/high power field)Ordered By: Germaine Presley on 12-16-2022 Bacteria LM.HPF (Urine sed) [#/Area] 4 /[HPF] None Seen [facility] Urine specific gravity measu rementOrdered By: Germaine Presley on 12-16-2022 Specific gravity (U) [Rel density] 1.015 1.002-1.030 [facility] Urobilinogen Auto test strip Ql (U)Ordered By: Germaine Presley on 12-16-2022 Urobilinogen Ql (U) 1 mg/dl Normal [facility] pH measurementOrdered By: Dr Timothy Pham on 12-16-2022 pH (Unsp spec) 7.60 [pH] 7.35-7.45 [facility] pH (Unsp spec) 7.45 [pH] 7.35-7.45 [facility] CASE MANAGEMon 09-27-2022 CASE MANAGEM Normal [facility] CASE MANAGEM Normal [facility] CNDSon 09-27-2022 CNDS Normal [facility] CONSULTon 09-27-2022 CONSULT Normal [facility] Ammonia Plas-sCncon 09-26-20 22 Ammonia (P) [Moles/Vol] 20 umol/L Normal 11-51 [facility] Comment on above: Order Comment: Speci men Type: BLOOD SPECIMENOrdering Facility: [facility] Address: [address] [place] [address] Performed By: #### 1 6362-6 ####[facility] LABORATORYCLIA [id number] [place] [address] [place] Basic metabolic 2000 panelon 09-26-2022 Anion gap [Moles/Vol] 10 mmol/L Normal 9-18 [facility] Comment on above: Order Comment: Speci men Type: BLOOD SPECIMENOrdering Facility: [facility] Address: [address] [place] [address] Performed By: #### 2 4321-2 ####[facility] LABORATORYCLIA [id number] [place] [address] [place] Calcium [Mass/Vol] 9.1 mg/dL Normal 8.5-10.2 [facility] Comment on above: Order Comment: Speci men Type: BLOOD SPECIMENOrdering Facility: [facility] Address: [address] [address] Performed By: #### 2 4321-2 ####[facility] LABORATORYCLIA [id number] [address] OF [facility] Chloride [Moles/Vol] 101 mmol/L Normal 97-105 [facility] Comment on above: Order Comment: Speci men Type: BLOOD SPECIMENOrdering Facility: [facility] Address: [address] [place] [address] Performed By: #### 2 4321-2 ####[facility] LABORATORYCLIA [id number] [address] OF [facility] CO2 [Moles/Vol] 21 mmol/L Low 22-30 [facility] Comment on above: Order Comment: Speci men Type: BLOOD SPECIMENOrdering Facility: [facility] Address: [address] [place] [address] Performed By: #### 2 4321-2 ####[facility] LABORATORYCLIA [id number] [address] OF [facility] Creatinine [Mass/Vol] 0.44 mg/dL Low 0.58-0.96 [facility] Comment on above: Order Comment: Speci men Type: BLOOD SPECIMENOrdering Facility: [facility] Address: [address] [place] [address] Performed By: #### 2 4321-2 ####[facility] LABORATORYCLIA [id number] [address] ESTIMATED GLOMERULAR FILTRATION RATE 104 mL/min/1.73m??? Normal >=60 [facility] Comment on above: Order Comment: Speci men Type: BLOOD SPECIMENOrdering Facility: [facility] Address: [address] [place] [address] Result Comment: Mariely mated Glomerular Filtration Rate [...] actual GFR. Performed By: #### 2 4321-2 ####[facility] LABORATORYCLIA [id number] [place] [address] [place] Glucose [Mass/Vol] 98 mg/dL Normal 74-99 [facility] Comment on above: Order Comment: Cary lujan Type: BLOOD SPECIMENOrdering Facility: [facility] Address: [address] [address] Result Comment: The [place] [employer] (ADA) provides guidance for cutoff [...] Standards of Medical Care in Diabetes 2016, [place] [employer]. Diabetes Care. 2016.39(Suppl 1). Performed By: #### 2 4321-2 ####[facility] LABORATORYCLIA [id number] [place] [address] [place] Potassium [Moles/Vol] Normal [facility] Comment on above: Order Comment: Cary lujan Type: BLOOD SPECIMENOrdering Facility: [facility] Address: [address] [address] Result Comment: Unab le to assay due to interference from hemolysis. Suggest reorder as clinically indicated. Performed By: #### 2 4321-2 ####[facility] LABORATORYCLIA [id number] [place] [address] [place] Sodium [Moles/Vol] 132 mmol/L Low 136-144 [facility] Comment on above: Order Comment: Cary lujan Type: BLOOD SPECIMENOrdering Facility: [facility] Address: [address] [address] Performed By: #### 2 4321-2 ####[facility] LABORATORYCLIA [id number] [address] STATES OF [facility] Urea nitrogen [Mass/Vol] 12 mg/dL Normal 7-21 [facility] Comment on above: Order Comment: Speci men Type: BLOOD SPECIMENOrdering Facility: [facility] Address: [address] [place] [address] Performed By: #### 2 4321-2 ####[facility] LABORATORYCLIA [id number] [address] OF [facility] CASE MANAGEMon 09-26-2022 CASE MANAGEM Normal [facility] CASE MANAGEM Normal [facility] CBC panel Auto (Bld)on 09-26 Erythrocyte distribution width (RBC) [Ratio] 15.2 % High 11.5-15.0 [facility] Comment on above: Order Comment: Speci men Type: BLOOD SPECIMENOrdering Facility: [facility] Address: [address] [place] [address] Performed By: #### 5 8410-2 ####[facility] LABORATORYCLIA [id number] [address] Hematocrit (Bld) [Volume fraction] 40.2 % Normal 36.0-46.0 [facility] Comment on above: Order Comment: Speci men Type: BLOOD SPECIMENOrdering Facility: [facility] Address: [address] [place] [address] Performed By: #### 5 8410-2 ####[facility] LABORATORYCLIA [id number] [address] [place] Hemoglobin (Bld) [Mass/Vol] 13.6 g/dL Normal 11.5-15.5 [facility] Comment on above: Order Comment: Speci men Type: BLOOD SPECIMENOrdering Facility: [facility] Address: [address] [place] [address] Performed By: #### 5 8410-2 ####[facility] LABORATORYCLIA [id number] [address] [place] MCH (RBC) [Entitic mass] 34.6 pg High 26.0-34.0 [facility] Comment on above: Order Comment: Speci men Type: BLOOD SPECIMENOrdering Facility: [facility] Address: [address] [place] [address] Performed By: #### 5 8410-2 ####[facility] LABORATORYCLIA [id number] [address] STATES OF [facility] MCHC (RBC) [Mass/Vol] 33.8 g/dL Normal 30.5-36.0 [facility] Comment on above: Order Comment: Speci men Type: BLOOD SPECIMENOrdering Facility: [facility] Address: [address] [place] [address] Performed By: #### 5 8410-2 ####[facility] LABORATORYCLIA [id number] [address] STATES [facility] MCV (RBC) [Entitic vol] 102.3 fL High 80.0-100.0 [facility] Comment on above: Order Comment: Speci men Type: BLOOD SPECIMENOrdering Facility: [facility] Address: [address] [place] [address] Performed By: #### 5 8410-2 ####[facility] LABORATORYCLIA [id number] [address] Nucleated RBC (Bld) [#/Vol] 10*3/uL Normal <0.01 [facility] Comment on above: Order Comment: Speci men Type: BLOOD SPECIMENOrdering Facility: [facility] Address: [address] [place] [address] Performed By: #### 5 8410-2 ####[facility] LABORATORYCLIA [id number] [address] Platelet mean volume (Bld) [Entitic vol] 10.3 fL Normal 9.0-12.7 [facility] Comment on above: Order Comment: Speci men Type: BLOOD SPECIMENOrdering Facility: [facility] Address: [address] [place], [place] [id number] Performed By: #### 5 8410-2 ####[facility] LABORATORYCLIA [id number] [address] OF [facility] Platelets (Bld) [#/Vol] 264 10*3/uL Normal 150-400 [facility] Comment on above: Order Comment: Speci men Type: BLOOD SPECIMENOrdering Facility: [facility] Address: [address] [place] [address] Performed By: #### 5 8410-2 ####[facility] LABORATORYCLIA [id number] [address] STATES OF [facility] RBC (Bld) [#/Vol] 3.93 10*6/uL Normal 3.90-5.20 [facility] Comment on above: Order Comment: Speci men Type: BLOOD SPECIMENOrdering Facility: [facility] Address: [address] [place] [address] Performed By: #### 5 8410-2 ####[facility] LABORATORYCLIA [id number] [address] STATES OF [facility] WBC (Bld) [#/Vol] 7.82 10*3/uL Normal 3.70-11.00 [facility] Comment on above: Order Comment: Speci men Type: BLOOD SPECIMENOrdering Facility: [facility] Address: [address] [place] [address] Performed By: #### 5 8410-2 ####[facility] LABORATORYCLIA [id number] [address] Basic metabolic 2000 panelon 09-25-2022 Anion gap [Moles/Vol] 11 mmol/L Normal 9-18 [facility] Comment on above: Order Comment: Speci men Type: BLOOD SPECIMENOrdering Facility: [facility] Address: [address] [place] [address] Performed By: #### 2 4321-2 ####[facility] LABORATORYCLIA [id number] [address] Calcium [Mass/Vol] 8.4 mg/dL Low 8.5-10.2 [facility] Comment on above: Order Comment: Speci men Type: BLOOD SPECIMENOrdering Facility: [facility] Address: [address] [place] [address] Performed By: #### 2 4321-2 ####[facility] LABORATORYCLIA [id number] [place] [address] [place] Chloride [Moles/Vol] 107 mmol/L High 97-105 [facility] Comment on above: Order Comment: Speci men Type: BLOOD SPECIMENOrdering Facility: [facility] Address: [address] [place] [address] Performed By: #### 2 4321-2 ####[facility] LABORATORYCLIA [id number] [place] [address] [place] CO2 [Moles/Vol] 21 mmol/L Low 22-30 [facility] Comment on above: Order Comment: Speci men Type: BLOOD SPECIMENOrdering Facility: [facility] Address: [address] [place] [address] Performed By: #### 2 4321-2 ####[facility] LABORATORYCLIA [id number] [place] [address] [place] Creatinine [Mass/Vol] 0.46 mg/dL Low 0.58-0.96 [facility] Comment on above: Order Comment: Speci men Type: BLOOD SPECIMENOrdering Facility: [facility] Address: [address] [place] [address] Performed By: #### 2 4321-2 ####[facility] LABORATORYCLIA [id number] [address] [place] ESTIMATED GLOMERULAR FILTRATION RATE 102 mL/min/1.73m??? Normal >=60 [facility] Comment on above: Order Comment: Speci men Type: BLOOD SPECIMENOrdering Facility: [facility] Address: [address] [place] [address] Result Comment: Mariely mated Glomerular Filtration Rate [...] actual GFR. Performed By: #### 2 4321-2 ####[facility] LABORATORYCLIA [id number] [place] [address] [place] Glucose [Mass/Vol] 92 mg/dL Normal 74-99 [facility] Comment on above: Order Comment: Speci men Type: BLOOD SPECIMENOrdering Facility: [facility] Address: [address] [place] [address] Result Comment: The [place] [employer] (ADA) provides guidance for cutoff [...] Standards of Medical Care in Diabetes 2016, [place] [employer]. Diabetes Care. 2016.39(Suppl 1). Performed By: #### 2 4321-2 ####[facility] LABORATORYCLIA [id number] [place] [address] [place] Potassium [Moles/Vol] 3.9 mmol/L Normal 3.7-5.1 [facility] Comment on above: Order Comment: Speci men Type: BLOOD SPECIMENOrdering Facility: [facility] Address: [address] [place], [place] [id number] Performed By: #### 2 4321-2 ####[facility] LABORATORYCLIA [id number] [place] [address] [place] Sodium [Moles/Vol] 139 mmol/L Normal 136-144 [facility] Comment on above: Order Comment: Speci men Type: BLOOD SPECIMENOrdering Facility: [facility] Address: [address] [address] Performed By: #### 2 4321-2 ####[facility] LABORATORYCLIA [id number] [address] STATES OF [facility] Urea nitrogen [Mass/Vol] 9 mg/dL Normal 7-21 [facility] Comment on above: Order Comment: Speci men Type: BLOOD SPECIMENOrdering Facility: [facility] Address: [address] [address] Performed By: #### 2 4321-2 ####[facility] LABORATORYCLIA [id number] [address] OF [facility] CASE MANAGEMon 09-25-2022 CASE MANAGEM Normal [facility] CBC panel Auto (Bld)on 09-25 Erythrocyte distribution width (RBC) [Ratio] 15.1 % High 11.5-15.0 [facility] Comment on above: Order Comment: Speci men Type: BLOOD SPECIMENOrdering Facility: [facility] Address: [address] [address] Performed By: #### 5 8410-2 ####[facility] LABORATORYCLIA [id number] [address] STATES OF [facility] Hematocrit (Bld) [Volume fraction] 37.6 % Normal 36.0-46.0 [facility] Comment on above: Order Comment: Speci men Type: BLOOD SPECIMENOrdering Facility: [facility] Address: [address] [address] Performed By: #### 5 8410-2 ####[facility] LABORATORYCLIA [id number] [address] [place] Hemoglobin (Bld) [Mass/Vol] 12.7 g/dL Normal 11.5-15.5 [facility] Comment on above: Order Comment: Speci men Type: BLOOD SPECIMENOrdering Facility: [facility] Address: [address] [place] [address] Performed By: #### 5 8410-2 ####[facility] LABORATORYCLIA [id number] [address] MCH (RBC) [Entitic mass] 34.3 pg High 26.0-34.0 [facility] Comment on above: Order Comment: Speci men Type: BLOOD SPECIMENOrdering Facility: [facility] Address: [address] [place] [address] Performed By: #### 5 8410-2 ####[facility] LABORATORYCLIA [id number] [address] MCHC (RBC) [Mass/Vol] 33.8 g/dL Normal 30.5-36.0 [facility] Comment on above: Order Comment: Speci men Type: BLOOD SPECIMENOrdering Facility: [facility] Address: [address] [place] [address] Performed By: #### 5 8410-2 ####[facility] LABORATORYCLIA [id number] [address] MCV (RBC) [Entitic vol] 101.6 fL High 80.0-100.0 [facility] Comment on above: Order Comment: Speci men Type: BLOOD SPECIMENOrdering Facility: [facility] Address: [address] [place] [address] Performed By: #### 5 8410-2 ####[facility] LABORATORYCLIA [id number] [address] Nucleated RBC (Bld) [#/Vol] 10*3/uL Normal <0.01 [facility] Comment on above: Order Comment: Speci men Type: BLOOD SPECIMENOrdering Facility: [facility] Address: [address] [place] [address] Performed By: #### 5 8410-2 ####[facility] LABORATORYCLIA [id number] [address] Platelet mean volume (Bld) [Entitic vol] 10.1 fL Normal 9.0-12.7 [facility] Comment on above: Order Comment: Speci men Type: BLOOD SPECIMENOrdering Facility: [facility] Address: [address] [address] Performed By: #### 5 8410-2 ####[facility] LABORATORYCLIA [id number] [address] OF [facility] Platelets (Bld) [#/Vol] 284 10*3/uL Normal 150-400 [facility] Comment on above: Order Comment: Speci men Type: BLOOD SPECIMENOrdering Facility: [facility] Address: [address] [place] [address] Performed By: #### 5 8410-2 ####[facility] LABORATORYCLIA [id number] [address] STATES OF [facility] RBC (Bld) [#/Vol] 3.70 10*6/uL Low 3.90-5.20 [facility] Comment on above: Order Comment: Speci men Type: BLOOD SPECIMENOrdering Facility: [facility] Address: [address] [place] [address] Performed By: #### 5 8410-2 ####[facility] LABORATORYCLIA [id number] [address] OF [facility] WBC (Bld) [#/Vol] 6.62 10*3/uL Normal 3.70-11.00 [facility] Comment on above: Order Comment: Speci men Type: BLOOD SPECIMENOrdering Facility: [facility] Address: [address] [place] [address] Performed By: #### 5 8410-2 ####[facility] LABORATORYCLIA [id number] [address] THERAPY NTon 09-25-2022 THERAPY NT Normal [facility] THERAPY NT Normal [facility] THERAPY NT Normal [facility] Basic metabolic 2000 panelon 09-24-2022 Anion gap [Moles/Vol] 10 mmol/L Normal 9-18 [facility] Comment on above: Order Comment: Speci men Type: BLOOD SPECIMENOrdering Facility: [facility] Address: [address] [place] [address] Performed By: #### 2 4321-2 ####[facility] LABORATORYCLIA [id number] [address] [place] Calcium [Mass/Vol] 9.1 mg/dL Normal 8.5-10.2 [facility] Comment on above: Order Comment: Speci men Type: BLOOD SPECIMENOrdering Facility: [facility] Address: [address] [place] [address] Performed By: #### 2 4321-2 ####[facility] LABORATORYCLIA [id number] [address] [place] Chloride [Moles/Vol] 100 mmol/L Normal 97-105 [facility] Comment on above: Order Comment: Speci men Type: BLOOD SPECIMENOrdering Facility: [facility] Address: [address] [place] [address] Performed By: #### 2 4321-2 ####[facility] LABORATORYCLIA [id number] [address] CO2 [Moles/Vol] 23 mmol/L Normal 22-30 [facility] Comment on above: Order Comment: Speci men Type: BLOOD SPECIMENOrdering Facility: [facility] Address: [address] [place] [address] Performed By: #### 2 4321-2 ####[facility] LABORATORYCLIA [id number] [address] [place] Creatinine [Mass/Vol] 0.56 mg/dL Low 0.58-0.96 [facility] Comment on above: Order Comment: Speci men Type: BLOOD SPECIMENOrdering Facility: [facility] Address: [address] [place] [address] Performed By: #### 2 4321-2 ####[facility] LABORATORYCLIA [id number] [address] ESTIMATED GLOMERULAR FILTRATION RATE 98 mL/min/1.73m??? Normal >=60 [facility] Comment on above: Order Comment: Speci men Type: BLOOD SPECIMENOrdering Facility: [facility] Address: [address] [address] Result Comment: Mariely mated Glomerular Filtration Rate [...] actual GFR. Performed By: #### 2 4321-2 ####[facility] LABORATORYCLIA [id number] [place] [address] [place] Glucose [Mass/Vol] 90 mg/dL Normal 74-99 [facility] Comment on above: Order Comment: Cary lujan Type: BLOOD SPECIMENOrdering Facility: [facility] Address: [address] [place] [address] Result Comment: The [place] [employer] (ADA) provides guidance for cutoff [...] Standards of Medical Care in Diabetes 2016, [place] [employer]. Diabetes Care. 2016.39(Suppl 1). Performed By: #### 2 4321-2 ####[facility] LABORATORYCLIA [id number] [place] [address] [place] Potassium [Moles/Vol] 3.5 mmol/L Low 3.7-5.1 [facility] Comment on above: Order Comment: Cary lujan Type: BLOOD SPECIMENOrdering Facility: [facility] Address: [address] [address] Performed By: #### 2 4321-2 ####[facility] LABORATORYCLIA [id number] [place] [address] [place] Sodium [Moles/Vol] 133 mmol/L Low 136-144 [facility] Comment on above: Order Comment: Speci men Type: BLOOD SPECIMENOrdering Facility: [facility] Address: [address] [place] [address] Performed By: #### 2 4321-2 ####[facility] LABORATORYCLIA [id number] [address] [place] Urea nitrogen [Mass/Vol] 13 mg/dL Normal 7-21 [facility] Comment on above: Order Comment: Speci men Type: BLOOD SPECIMENOrdering Facility: [facility] Address: [address] [place] [address] Performed By: #### 2 4321-2 ####[facility] LABORATORYCLIA [id number] [address] [place] CASE MANAGEMon 09-24-2022 CASE MANAGEM Normal [facility] CASE MANAGEM Normal [facility] CBC panel Auto (Bld)on 09-24 Erythrocyte distribution width (RBC) [Ratio] 15.2 % High 11.5-15.0 [facility] Comment on above: Order Comment: Speci men Type: BLOOD SPECIMENOrdering Facility: [facility] Address: [address] [place] [address] Performed By: #### 5 8410-2 ####[facility] LABORATORYCLIA [id number] [address] [place] Hematocrit (Bld) [Volume fraction] 40.8 % Normal 36.0-46.0 [facility] Comment on above: Order Comment: Speci men Type: BLOOD SPECIMENOrdering Facility: [facility] Address: [address] [place] [address] Performed By: #### 5 8410-2 ####[facility] LABORATORYCLIA [id number] [place] [address] [place] Hemoglobin (Bld) [Mass/Vol] 13.8 g/dL Normal 11.5-15.5 [facility] Comment on above: Order Comment: Speci men Type: BLOOD SPECIMENOrdering Facility: [facility] Address: [address] [place] [address] Performed By: #### 5 8410-2 ####[facility] LABORATORYCLIA [id number] [address] MCH (RBC) [Entitic mass] 34.5 pg High 26.0-34.0 [facility] Comment on above: Order Comment: Speci men Type: BLOOD SPECIMENOrdering Facility: [facility] Address: [address] [place] [address] Performed By: #### 5 8410-2 ####[facility] LABORATORYCLIA [id number] [address] MCHC (RBC) [Mass/Vol] 33.8 g/dL Normal 30.5-36.0 [facility] Comment on above: Order Comment: Speci men Type: BLOOD SPECIMENOrdering Facility: [facility] Address: [address] [place] [address] Performed By: #### 5 8410-2 ####[facility] LABORATORYCLIA [id number] [address] MCV (RBC) [Entitic vol] 102.0 fL High 80.0-100.0 [facility] Comment on above: Order Comment: Speci men Type: BLOOD SPECIMENOrdering Facility: [facility] Address: [address] [place] [address] Performed By: #### 5 8410-2 ####[facility] LABORATORYCLIA [id number] [address] Nucleated RBC (Bld) [#/Vol] 10*3/uL Normal <0.01 [facility] Comment on above: Order Comment: Speci men Type: BLOOD SPECIMENOrdering Facility: [facility] Address: [address] [place] [address] Performed By: #### 5 8410-2 ####[facility] LABORATORYCLIA [id number] [address] [place] Platelet mean volume (Bld) [Entitic vol] 10.0 fL Normal 9.0-12.7 [facility] Comment on above: Order Comment: Speci men Type: BLOOD SPECIMENOrdering Facility: [facility] Address: [address] [place] [address] Performed By: #### 5 8410-2 ####[facility] LABORATORYCLIA [id number] [place] [address] [place] Platelets (Bld) [#/Vol] 262 10*3/uL Normal 150-400 [facility] Comment on above: Order Comment: Speci men Type: BLOOD SPECIMENOrdering Facility: [facility] Address: [address] [place] [address] Performed By: #### 5 8410-2 ####[facility] LABORATORYCLIA [id number] [place] [address] [place] RBC (Bld) [#/Vol] 4.00 10*6/uL Normal 3.90-5.20 [facility] Comment on above: Order Comment: Speci men Type: BLOOD SPECIMENOrdering Facility: [facility] Address: [address] [place] [address] Performed By: #### 5 8410-2 ####[facility] LABORATORYCLIA [id number] [place] [address] [place] WBC (Bld) [#/Vol] 6.62 10*3/uL Normal 3.70-11.00 [facility] Comment on above: Order Comment: Speci men Type: BLOOD SPECIMENOrdering Facility: [facility] Address: [address] [place] [address] Performed By: #### 5 8410-2 ####[facility] LABORATORYCLIA [id number] [address] OF [facility] CONSULTon 09-24-2022 CONSULT Normal [facility] NURSING PROGon 09-24-2022 NURSING PROG Normal [facility] NURSING PROG Normal [facility] NUTRITIONon 09-24-2022 NUTRITION Normal [facility] NURSING PROGon 09-22-2022 NURSING PROG Normal [facility] Basic metabolic 2000 panelon 09-21-2022 Anion gap [Moles/Vol] 9 mmol/L Normal 9-18 [facility] Comment on above: Order Comment: Speci men Type: BLOOD SPECIMENOrdering Facility: [facility] Address: [address] [place] [address] Performed By: #### 2 4321-2 ####[facility]ORATORYCLIA [id number] [place] [address] [place] Calcium [Mass/Vol] 9.5 mg/dL Normal 8.5-10.2 [facility] Comment on above: Order Comment: Speci men Type: BLOOD SPECIMENOrdering Facility: [facility] Address: [address] [place] [address] Performed By: #### 2 4321-2 ####[facility] LABORATORYCLIA [id number] [place] [address] [place] Chloride [Moles/Vol] 100 mmol/L Normal 97-105 [facility] Comment on above: Order Comment: Speci men Type: BLOOD SPECIMENOrdering Facility: [facility] Address: [address] [place] [address] Performed By: #### 2 4321-2 ####[facility]ORATORYCLIA [id number] [place] [address] [place] CO2 [Moles/Vol] 25 mmol/L Normal 22-30 [facility] Comment on above: Order Comment: Speci men Type: BLOOD SPECIMENOrdering Facility: [facility] Address: [address] [place] [address] Performed By: #### 2 4321-2 ####[facility]ORATORYCLIA [id number] [place] [address] [place] Creatinine [Mass/Vol] 0.56 mg/dL Low 0.58-0.96 [facility] Comment on above: Order Comment: Speci men Type: BLOOD SPECIMENOrdering Facility: [facility] Address: [address] [address] Performed By: #### 2 4321-2 ####[facility] HOSPITALCLIA [id number] [address] [id number] [place] ESTIMATED GLOMERULAR FILTRATION RATE 98 mL/min/1.73m??? Normal >=60 [facility] Comment on above: Order Comment: Speci men Type: BLOOD SPECIMENOrdering Facility: [facility] Address: [address] [address] Result Comment: Mariely mated Glomerular Filtration Rate [...] actual GFR. Performed By: #### 2 4321-2 ####[facility] GROVEIA [id number] [address] [id number] [place] Glucose [Mass/Vol] 123 mg/dL High 74-99 [facility] Comment on above: Order Comment: Speccy lujan Type: BLOOD SPECIMENOrdering Facility: [facility] Address: [address] [place] [address] Result Comment: The [place] [employer] (ADA) provides guidance for cutoff [...] Standards of Medical Care in Diabetes 2016, [place] [employer]. Diabetes Care. 2016.39(Suppl 1). Performed By: #### 2 4321-2 ####[facility] LABORATORYCLIA [id number] [address] [id number] [place] Potassium [Moles/Vol] 4.4 mmol/L Normal 3.7-5.1 [facility] Comment on above: Order Comment: Speci men Type: BLOOD SPECIMENOrdering Facility: [facility] Address: [address] [place] [address] Performed By: #### 2 4321-2 ####[facility] LABORATORYCLIA [id number] [address] [place] Sodium [Moles/Vol] 134 mmol/L Low 136-144 [facility] Comment on above: Order Comment: Speci men Type: BLOOD SPECIMENOrdering Facility: [facility] Address: [address] [place] [address] Performed By: #### 2 4321-2 ####[facility] LABORATORYCLIA [id number] [address] STATES OF [facility] Urea nitrogen [Mass/Vol] 7 mg/dL Normal 7-21 [facility] Comment on above: Order Comment: Speci men Type: BLOOD SPECIMENOrdering Facility: [facility] Address: [address] [place] [address] Performed By: #### 2 4321-2 ####[facility] LABORATORYCLIA [id number] [address] [place] CASE MANAGEMon 09-21-2022 CASE MANAGEM Normal [facility] CBC panel Auto (Bld)on 09-21 Erythrocyte distribution width (RBC) [Ratio] 15.3 % High 11.5-15.0 [facility] Comment on above: Order Comment: Speci men Type: BLOOD SPECIMENOrdering Facility: [facility] Address: [address] [place] [address] Performed By: #### 5 8410-2 ####[facility] LABORATORYCLIA [id number] [address] STATES [facility] Hematocrit (Bld) [Volume fraction] 42.5 % Normal 36.0-46.0 [facility] Comment on above: Order Comment: Speci men Type: BLOOD SPECIMENOrdering Facility: [facility] Address: [address] [place] [address] Performed By: #### 5 8410-2 ####[facility] LABORATORYCLIA [id number] [address] Hemoglobin (Bld) [Mass/Vol] 14.5 g/dL Normal 11.5-15.5 [facility] Comment on above: Order Comment: Speci men Type: BLOOD SPECIMENOrdering Facility: [facility] Address: [address] [place] [address] Performed By: #### 5 8410-2 ####[facility] LABORATORYCLIA [id number] [address] MCH (RBC) [Entitic mass] 34.4 pg High 26.0-34.0 [facility] Comment on above: Order Comment: Speci men Type: BLOOD SPECIMENOrdering Facility: [facility] Address: [address] [place] [address] Performed By: #### 5 8410-2 ####[facility] LABORATORYCLIA [id number] [address] MCHC (RBC) [Mass/Vol] 34.1 g/dL Normal 30.5-36.0 [facility] Comment on above: Order Comment: Speci men Type: BLOOD SPECIMENOrdering Facility: [facility] Address: [address] [place] [address] Performed By: #### 5 8410-2 ####[facility] LABORATORYCLIA [id number] [address] MCV (RBC) [Entitic vol] 101.0 fL High 80.0-100.0 [facility] Comment on above: Order Comment: Speci men Type: BLOOD SPECIMENOrdering Facility: [facility] Address: [address] [place] [address] Performed By: #### 5 8410-2 ####[facility] LABORATORYCLIA [id number] [address] Nucleated RBC (Bld) [#/Vol] 10*3/uL Normal <0.01 [facility] Comment on above: Order Comment: Speci men Type: BLOOD SPECIMENOrdering Facility: [facility] Address: [address] [place] [address] Performed By: #### 5 8410-2 ####[facility] LABORATORYCLIA [id number] [address] [place] Platelet mean volume (Bld) [Entitic vol] 11.0 fL Normal 9.0-12.7 [facility] Comment on above: Order Comment: Speci men Type: BLOOD SPECIMENOrdering Facility: [facility] Address: [address] [place] [address] Performed By: #### 5 8410-2 ####[facility] LABORATORYCLIA [id number] [address] [place] Platelets (Bld) [#/Vol] Normal [facility] Comment on above: Order Comment: Speci men Type: BLOOD SPECIMENOrdering Facility: [facility] Address: [address] [place] [address] Result Comment: Plat elets Clumped Estimate Normal. Performed By: #### 5 8410-2 ####[facility] LABORATORYCLIA [id number] [address] [place] RBC (Bld) [#/Vol] 4.21 10*6/uL Normal 3.90-5.20 [facility] Comment on above: Order Comment: Speci men Type: BLOOD SPECIMENOrdering Facility: [facility] Address: [address] [address] Performed By: #### 5 8410-2 ####[facility] LABORATORYCLIA [id number] [address] [place] WBC (Bld) [#/Vol] 5.39 10*3/uL Normal 3.70-11.00 [facility] Comment on above: Order Comment: Speci men Type: BLOOD SPECIMENOrdering Facility: [facility] Address: [address] [place] [address] Performed By: #### 5 8410-2 ####[facility]ORATORYCLIA [id number] [place] [address] [place] Basic metabolic 2000 panelon 09-20-2022 Anion gap [Moles/Vol] 8 mmol/L Low 9-18 [facility] Comment on above: Order Comment: Speci men Type: BLOOD SPECIMENOrdering Facility: [facility] Address: [address] [place] [address] Performed By: #### 2 4321-2 ####[facility]ORATORYCLIA [id number] [place] [address] [place] Calcium [Mass/Vol] 8.5 mg/dL Normal 8.5-10.2 [facility] Comment on above: Order Comment: Speci men Type: BLOOD SPECIMENOrdering Facility: [facility] Address: [address] [place] [address] Performed By: #### 2 4321-2 ####[facility]ORATORYCLIA [id number] [address] [place] Chloride [Moles/Vol] 106 mmol/L High 97-105 [facility] Comment on above: Order Comment: Speci men Type: BLOOD SPECIMENOrdering Facility: [facility] Address: [address] [place] [address] Performed By: #### 2 4321-2 ####[facility]ORATORYCLIA [id number] [place] [address] [place] CO2 [Moles/Vol] 21 mmol/L Low 22-30 [facility] Comment on above: Order Comment: Speci men Type: BLOOD SPECIMENOrdering Facility: [facility] Address: [address] [place] [address] Performed By: #### 2 4321-2 ####[facility]ORATORYCLIA [id number] [place] [address] [place] Creatinine [Mass/Vol] 0.44 mg/dL Low 0.58-0.96 [facility] Comment on above: Order Comment: Speci men Type: BLOOD SPECIMENOrdering Facility: [facility] Address: [address] [place] [address] Performed By: #### 2 4321-2 ####[facility] GROVEIA [id number] [address] OF [facility] ESTIMATED GLOMERULAR FILTRATION RATE 104 mL/min/1.73m??? Normal >=60 [facility] Comment on above: Order Comment: Cary lujan Type: BLOOD SPECIMENOrdering Facility: [facility] Address: [address] [place] [address] Result Comment: Mariely mated Glomerular Filtration Rate [...] actual GFR. Performed By: #### 2 4321-2 ####[facility] GR[facility]IA [id number] [place] [address] [place] Glucose [Mass/Vol] 90 mg/dL Normal 74-99 [facility] Comment on above: Order Comment: Cary lujan Type: BLOOD SPECIMENOrdering Facility: [facility] Address: [address] [place] [address] Result Comment: The [place] [employer] (ADA) provides guidance for cutoff [...] Standards of Medical Care in Diabetes 2016, [place] [employer]. Diabetes Care. 2016.39(Suppl 1). Performed By: #### 2 4321-2 ####[facility] LABORATORYCLIA [id number] [address] [place] Potassium [Moles/Vol] Normal [facility] Comment on above: Order Comment: Speci men Type: BLOOD SPECIMENOrdering Facility: [facility] Address: [address] [place] [address] Result Comment: Unab le to assay due to interference from hemolysis. Suggest reorder as clinically indicated. Performed By: #### 2 4321-2 ####[facility] LABORATORYCLIA [id number] [address] [place] Sodium [Moles/Vol] 135 mmol/L Low 136-144 [facility] Comment on above: Order Comment: Speci men Type: BLOOD SPECIMENOrdering Facility: [facility] Address: [address] [place] [address] Performed By: #### 2 4321-2 ####[facility] LABORATORYCLIA [id number] [address] STATES [facility] Urea nitrogen [Mass/Vol] 6 mg/dL Low 7-21 [facility] Comment on above: Order Comment: Speci men Type: BLOOD SPECIMENOrdering Facility: [facility] Address: [address] [place] [address] Performed By: #### 2 4321-2 ####[facility] LABORATORYCLIA [id number] [address] [place] CBC panel Auto (Bld)on 09-20 Erythrocyte distribution width (RBC) [Ratio] 15.1 % High 11.5-15.0 [facility] Comment on above: Order Comment: Speci men Type: BLOOD SPECIMENOrdering Facility: [facility] Address: [address] [place] [address] Performed By: #### 5 8410-2 ####[facility] LABORATORYCLIA [id number] [address] Hematocrit (Bld) [Volume fraction] 37.9 % Normal 36.0-46.0 [facility] Comment on above: Order Comment: Speci men Type: BLOOD SPECIMENOrdering Facility: [facility] Address: [address] [address] Performed By: #### 5 8410-2 ####[facility] LABORATORYCLIA [id number] [address] STATES OF [facility] Hemoglobin (Bld) [Mass/Vol] 13.1 g/dL Normal 11.5-15.5 [facility] Comment on above: Order Comment: Speci men Type: BLOOD SPECIMENOrdering Facility: [facility] Address: [address] [place] [address] Performed By: #### 5 8410-2 ####[facility] LABORATORYCLIA [id number] [address] STATES OF [facility] MCH (RBC) [Entitic mass] 34.1 pg High 26.0-34.0 [facility] Comment on above: Order Comment: Speci men Type: BLOOD SPECIMENOrdering Facility: [facility] Address: [address] [place] [address] Performed By: #### 5 8410-2 ####[facility] LABORATORYCLIA [id number] [address] STATES [facility] MCHC (RBC) [Mass/Vol] 34.6 g/dL Normal 30.5-36.0 [facility] Comment on above: Order Comment: Speci men Type: BLOOD SPECIMENOrdering Facility: [facility] Address: [address] [place] [address] Performed By: #### 5 8410-2 ####[facility] LABORATORYCLIA [id number] [address] STATES [facility] MCV (RBC) [Entitic vol] 98.7 fL Normal 80.0-100.0 [facility] Comment on above: Order Comment: Speci men Type: BLOOD SPECIMENOrdering Facility: [facility] Address: [address] [place] [address] Performed By: #### 5 8410-2 ####[facility] LABORATORYCLIA [id number] [address] Nucleated RBC (Bld) [#/Vol] 10*3/uL Normal <0.01 [facility] Comment on above: Order Comment: Speci men Type: BLOOD SPECIMENOrdering Facility: [facility] Address: [address] [address] Performed By: #### 5 8410-2 ####[facility] LABORATORYCLIA [id number] [place] [address] [place] Platelet mean volume (Bld) [Entitic vol] 11.1 fL Normal 9.0-12.7 [facility] Comment on above: Order Comment: Speci men Type: BLOOD SPECIMENOrdering Facility: [facility] Address: [address] [place] [address] Performed By: #### 5 8410-2 ####[facility] LABORATORYCLIA [id number] [place] [address] [place] Platelets (Bld) [#/Vol] 164 10*3/uL Normal 150-400 [facility] Comment on above: Order Comment: Speci men Type: BLOOD SPECIMENOrdering Facility: [facility] Address: [address] [place] [address] Performed By: #### 5 8410-2 ####[facility] LABORATORYCLIA [id number] [place] [address] [place] RBC (Bld) [#/Vol] 3.84 10*6/uL Low 3.90-5.20 [facility] Comment on above: Order Comment: Speci men Type: BLOOD SPECIMENOrdering Facility: [facility] Address: [address] [address] Performed By: #### 5 8410-2 ####[facility] LABORATORYCLIA [id number] [place] [address] [place] WBC (Bld) [#/Vol] 5.67 10*3/uL Normal 3.70-11.00 [facility] Comment on above: Order Comment: Speci men Type: BLOOD SPECIMENOrdering Facility: [facility] Address: [address] [place] [address] Performed By: #### 5 8410-2 ####[facility] LABORATORYCLIA [id number] [place] [address] [place] CTA HEAD W IVCONon 2 CTA HEAD W IVCON Normal [facility] CTA NECK W IVCONon 2 CTA NECK W IVCON Normal [facility] THERAPY NTon 09-20-2022 THERAPY NT Normal [facility] THERAPY NT Normal [facility] ALLIED HEALTHon 09-19-2022 ALLIED HEALTH Normal [facility] Basic metabolic 2000 panelon 09-19-2022 Anion gap [Moles/Vol] 10 mmol/L Normal 9-18 [facility] Comment on above: Order Comment: Speci men Type: BLOOD SPECIMENOrdering Facility: [facility] Address: [address] [place] [address] Performed By: #### 2 4321-2 ####[facility] LABORATORYCLIA [id number] [place] [address] [place] Calcium [Mass/Vol] 7.3 mg/dL Low 8.5-10.2 [facility] Comment on above: Order Comment: Speci men Type: BLOOD SPECIMENOrdering Facility: [facility] Address: [address] [place] [address] Performed By: #### 2 4321-2 ####[facility] LABORATORYCLIA [id number] [place] [address] [place] Chloride [Moles/Vol] 106 mmol/L High 97-105 [facility] Comment on above: Order Comment: Speci men Type: BLOOD SPECIMENOrdering Facility: [facility] Address: [address] [place] [address] Performed By: #### 2 4321-2 ####[facility] LABORATORYCLIA [id number] [place] [address] [place] CO2 [Moles/Vol] 19 mmol/L Low 22-30 [facility] Comment on above: Order Comment: Speci men Type: BLOOD SPECIMENOrdering Facility: [facility] Address: [address] [address] Performed By: #### 2 4321-2 ####[facility] LABORATORYCLIA [id number] [place] [id number] [place] [facility] Creatinine [Mass/Vol] 0.39 mg/dL Low 0.58-0.96 [facility] Comment on above: Order Comment: Speci men Type: BLOOD SPECIMENOrdering Facility: [facility] Address: [address] [address] Performed By: #### 2 4321-2 ####[facility] LABORATORYCLIA [id number] [address] ESTIMATED GLOMERULAR FILTRATION RATE 107 mL/min/1.73m??? Normal >=60 [facility] Comment on above: Order Comment: Speci men Type: BLOOD SPECIMENOrdering Facility: [facility] Address: [address] [place] [address] Result Comment: Mariely mated Glomerular Filtration Rate [...] actual GFR. Performed By: #### 2 4321-2 ####[facility]ORATORYCLIA [id number] [address] Glucose [Mass/Vol] 123 mg/dL High 74-99 [facility] Comment on above: Order Comment: Speci men Type: BLOOD SPECIMENOrdering Facility: [facility] Address: [address] [address] Result Comment: The [place] [employer] (ADA) provides guidance for cutoff [...] Standards of Medical Care in Diabetes 2016, [place] [employer]. Diabetes Care. 2016.39(Suppl 1). Performed By: #### 2 4321-2 ####[facility] LABORATORYCLIA [id number] [address] STATES OF [facility] Potassium [Moles/Vol] 3.1 mmol/L Low 3.7-5.1 [facility] Comment on above: Order Comment: Speci tai Type: BLOOD SPECIMENOrdering Facility: [facility] Address: [address] [place] [address] Performed By: #### 2 4321-2 ####[facility] LABORATORYCLIA [id number] [address] Sodium [Moles/Vol] 135 mmol/L Low 136-144 [facility] Comment on above: Order Comment: Speci men Type: BLOOD SPECIMENOrdering Facility: [facility] Address: [address] [address] Performed By: #### 2 4321-2 ####[facility] LABORATORYCLIA [id number] [address] Urea nitrogen [Mass/Vol] 6 mg/dL Low 7-21 [facility] Comment on above: Order Comment: Rejii tai Type: BLOOD SPECIMENOrdering Facility: [facility] Address: [address] [address] Performed By: #### 2 4321-2 ####[facility] LABORATORYCLIA [id number] [address] CBC panel Auto (Bld)on 09-19 Erythrocyte distribution width (RBC) [Ratio] 14.7 % Normal 11.5-15.0 [facility] Comment on above: Order Comment: Rejii tai Type: BLOOD SPECIMENOrdering Facility: [facility] Address: [address] [address] Performed By: #### 5 8410-2 ####[facility] LABORATORYCLIA [id number] [address] Hematocrit (Bld) [Volume fraction] 38.6 % Normal 36.0-46.0 [facility] Comment on above: Order Comment: Speci men Type: BLOOD SPECIMENOrdering Facility: [facility] Address: [address] [place] [address] Performed By: #### 5 8410-2 ####[facility] LABORATORYCLIA [id number] [address] OF [facility] Hemoglobin (Bld) [Mass/Vol] 13.3 g/dL Normal 11.5-15.5 [facility] Comment on above: Order Comment: Speci men Type: BLOOD SPECIMENOrdering Facility: [facility] Address: [address] [place] [address] Performed By: #### 5 8410-2 ####[facility] LABORATORYCLIA [id number] [address] MCH (RBC) [Entitic mass] 34.1 pg High 26.0-34.0 [facility] Comment on above: Order Comment: Speci men Type: BLOOD SPECIMENOrdering Facility: [facility] Address: [address] [place] [address] Performed By: #### 5 8410-2 ####[facility] LABORATORYCLIA [id number] [address] MCHC (RBC) [Mass/Vol] 34.5 g/dL Normal 30.5-36.0 [facility] Comment on above: Order Comment: Speci men Type: BLOOD SPECIMENOrdering Facility: [facility] Address: [address] [place] [address] Performed By: #### 5 8410-2 ####[facility] LABORATORYCLIA [id number] [address] OF [facility] MCV (RBC) [Entitic vol] 99.0 fL Normal 80.0-100.0 [facility] Comment on above: Order Comment: Speci men Type: BLOOD SPECIMENOrdering Facility: [facility] Address: [address] [address] Performed By: #### 5 8410-2 ####[facility] LABORATORYCLIA [id number] [address] [place] Nucleated RBC (Bld) [#/Vol] 10*3/uL Normal <0.01 [facility] Comment on above: Order Comment: Speci men Type: BLOOD SPECIMENOrdering Facility: [facility] Address: [address] [address] Performed By: #### 5 8410-2 ####[facility] LABORATORYCLIA [id number] [place] [address] [place] Platelet mean volume (Bld) [Entitic vol] 11.1 fL Normal 9.0-12.7 [facility] Comment on above: Order Comment: Speci men Type: BLOOD SPECIMENOrdering Facility: [facility] Address: [address] [address] Performed By: #### 5 8410-2 ####[facility] LABORATORYCLIA [id number] [address] [place] Platelets (Bld) [#/Vol] 123 10*3/uL Low 150-400 [facility] Comment on above: Order Comment: Speci men Type: BLOOD SPECIMENOrdering Facility: [facility] Address: [address] [place] [address] Result Comment: Plat elet count confirmed by manual review of peripheral blood smear Performed By: #### 5 8410-2 ####[facility] LABORATORYCLIA [id number] [place] [address] [place] RBC (Bld) [#/Vol] 3.90 10*6/uL Normal 3.90-5.20 [facility] Comment on above: Order Comment: Speci men Type: BLOOD SPECIMENOrdering Facility: [facility] Address: [address] [place] [address] Performed By: #### 5 8410-2 ####[facility] LABORATORYCLIA [id number] [place] [address] [place] WBC (Bld) [#/Vol] 7.75 10*3/uL Normal 3.70-11.00 [facility] Comment on above: Order Comment: Speci men Type: BLOOD SPECIMENOrdering Facility: [facility] Address: [address] [place] [address] Performed By: #### 5 8410-2 ####[facility] LABORATORYCLIA [id number] [address] [place] CNPNon 09-19-2022 CNPN Normal [facility] CONSULTon 09-19-2022 CONSULT Normal [facility] CT BRAIN WO IVCONon 09-19-[address] BRAIN WO IVCON Normal [facility] NURSING PROGon 09-19-2022 NURSING PROG Normal [facility] ALLIED HEALTHon 09-18-2022 ALLIED HEALTH Normal [facility] Basic metabolic 2000 panelon 09-18-2022 Anion gap [Moles/Vol] 17 mmol/L Normal 9-18 [facility] Comment on above: Order Comment: Speci men Type: BLOOD SPECIMENOrdering Facility: [facility] Address: [address] [place] [address] Performed By: #### 2 4321-2 ####[facility] LABORATORYCLIA [id number] [place] [address] [place] Calcium [Mass/Vol] 7.7 mg/dL Low 8.5-10.2 [facility] Comment on above: Order Comment: Speci men Type: BLOOD SPECIMENOrdering Facility: [facility] Address: [address] [place] [address] Performed By: #### 2 4321-2 ####[facility] LABORATORYCLIA [id number] [place] [address] [place] Chloride [Moles/Vol] 99 mmol/L Normal 97-105 [facility] Comment on above: Order Comment: Speci men Type: BLOOD SPECIMENOrdering Facility: [facility] Address: [address] [address] Performed By: #### 2 4321-2 ####[facility] LABORATORYCLIA [id number] [address] CO2 [Moles/Vol] 18 mmol/L Low 22-30 [facility] Comment on above: Order Comment: Speci men Type: BLOOD SPECIMENOrdering Facility: [facility] Address: [address] [address] Performed By: #### 2 4321-2 ####[facility] LABORATORYCLIA [id number] [address] OF [facility] Creatinine [Mass/Vol] 0.40 mg/dL Low 0.58-0.96 [facility] Comment on above: Order Comment: Speci men Type: BLOOD SPECIMENOrdering Facility: [facility] Address: [address] [place] [address] Performed By: #### 2 4321-2 ####[facility] LABORATORYCLIA [id number] [address] ESTIMATED GLOMERULAR FILTRATION RATE 106 mL/min/1.73m??? Normal >=60 [facility] Comment on above: Order Comment: Speci men Type: BLOOD SPECIMENOrdering Facility: [facility] Address: [address] [place] [address] Result Comment: Mariely mated Glomerular Filtration Rate [...] actual GFR. Performed By: #### 2 4321-2 ####[facility] LABORATORYCLIA [id number] [address] Glucose [Mass/Vol] 82 mg/dL Normal 74-99 [facility] Comment on above: Order Comment: Speci men Type: BLOOD SPECIMENOrdering Facility: [facility] Address: [address] [address] Result Comment: The [place] [employer] (ADA) provides guidance for cutoff [...] Standards of Medical Care in Diabetes 2016, [place] [employer]. Diabetes Care. 2016.39(Suppl 1). Performed By: #### 2 4321-2 ####[facility] LABORATORYCLIA [id number] [place] [address] [place] Potassium [Moles/Vol] 3.3 mmol/L Low 3.7-5.1 [facility] Comment on above: Order Comment: Speci men Type: BLOOD SPECIMENOrdering Facility: [facility] Address: [address] [address] Performed By: #### 2 4321-2 ####[facility] LABORATORYCLIA [id number] [place] [address] [place] Sodium [Moles/Vol] 134 mmol/L Low 136-144 [facility] Comment on above: Order Comment: Speci men Type: BLOOD SPECIMENOrdering Facility: [facility] Address: [address] [address] Performed By: #### 2 4321-2 ####[facility] LABORATORYCLIA [id number] [place] [address] [place] Urea nitrogen [Mass/Vol] 4 mg/dL Low 7-21 [facility] Comment on above: Order Comment: Speci men Type: BLOOD SPECIMENOrdering Facility: [facility] Address: [address] [address] Performed By: #### 2 4321-2 ####[facility] LABORATORYCLIA [id number] [address] OF [facility] C diff Tox gens Stl Ql CY+p robeon 09-18-2022 C. difficile toxin genes CY+probe Ql (Stl) Positive Abnormal Negative for C. difficile toxin by PCR [facility] Comment on above: Order Comment: Cary lujan Type: STOOL SPECIMENOrdering Facility: [facility] Address: [address] [place] [address] Result Comment: A po sitive PCR result [...] submission. Performed By: #### 5 4067-4, CDEIA ####[facility] LABORATORYCLIA [id number] [address] C. DIFFICILE TOXIN BY EIAon 09-18-2022 C. difficile toxin A+B IA Ql (Stl) Not detected Normal Negative for C. difficile toxin [facility] Comment on above: Order Comment: Cary lujan Type: STOOL SPECIMENOrdering Facility: [facility] Address: [address] [place] [address] Result Comment: Toxi n EIA is less sensitive than cell cytotoxin and PCR assays. Clinical correlation of PCR positive/toxin EIA negative results is required to distinguish C. difficle colonization from disease. Performed By: #### 5 4067-4, CDEIA ####[facility] LABORATORYCLIA [id number] [address] [place] CASE MANAGEMon 09-18-2022 CASE MANAGEM Normal [facility] CASE MANAGEM Normal [facility] CBC panel Auto (Bld)on 09-18 Erythrocyte distribution width (RBC) [Ratio] 14.4 % Normal 11.5-15.0 [facility] Comment on above: Order Comment: Cary lujan Type: BLOOD SPECIMENOrdering Facility: [facility] Address: [address] [address] Performed By: #### 5 8410-2 ####[facility] LABORATORYCLIA [id number] [address] Hematocrit (Bld) [Volume fraction] 34.9 % Low 36.0-46.0 [facility] Comment on above: Order Comment: Speci men Type: BLOOD SPECIMENOrdering Facility: [facility] Address: [address] [place] [address] Performed By: #### 5 8410-2 ####[facility] LABORATORYCLIA [id number] [address] Hemoglobin (Bld) [Mass/Vol] 12.2 g/dL Normal 11.5-15.5 [facility] Comment on above: Order Comment: Speci men Type: BLOOD SPECIMENOrdering Facility: [facility] Address: [address] [place] [address] Performed By: #### 5 8410-2 ####[facility] LABORATORYCLIA [id number] [address] STATES OF [facility] MCH (RBC) [Entitic mass] 34.2 pg High 26.0-34.0 [facility] Comment on above: Order Comment: Speci men Type: BLOOD SPECIMENOrdering Facility: [facility] Address: [address] [place] [address] Performed By: #### 5 8410-2 ####[facility] LABORATORYCLIA [id number] [address] [place] MCHC (RBC) [Mass/Vol] 35.0 g/dL Normal 30.5-36.0 [facility] Comment on above: Order Comment: Speci men Type: BLOOD SPECIMENOrdering Facility: [facility] Address: [address] [place] [address] Performed By: #### 5 8410-2 ####[facility] LABORATORYCLIA [id number] [address] MCV (RBC) [Entitic vol] 97.8 fL Normal 80.0-100.0 [facility] Comment on above: Order Comment: Speci men Type: BLOOD SPECIMENOrdering Facility: [facility] Address: [address] [place] [address] Performed By: #### 5 8410-2 ####[facility] LABORATORYCLIA [id number] [address] [place] Nucleated RBC (Bld) [#/Vol] 10*3/uL Normal <0.01 [facility] Comment on above: Order Comment: Speci men Type: BLOOD SPECIMENOrdering Facility: [facility] Address: [address] [place] [address] Performed By: #### 5 8410-2 ####[facility] LABORATORYCLIA [id number] [address] [place] Platelet mean volume (Bld) [Entitic vol] 10.8 fL Normal 9.0-12.7 [facility] Comment on above: Order Comment: Speci men Type: BLOOD SPECIMENOrdering Facility: [facility] Address: [address] [place] [address] Performed By: #### 5 8410-2 ####[facility] LABORATORYCLIA [id number] [address] [place] Platelets (Bld) [#/Vol] 111 10*3/uL Low 150-400 [facility] Comment on above: Order Comment: Speci men Type: BLOOD SPECIMENOrdering Facility: [facility] Address: [address] [place] [address] Result Comment: Resu lts checked and verified Performed By: #### 5 8410-2 ####[facility] LABORATORYCLIA [id number] [address] [place] RBC (Bld) [#/Vol] 3.57 10*6/uL Low 3.90-5.20 [facility] Comment on above: Order Comment: Speci men Type: BLOOD SPECIMENOrdering Facility: [facility] Address: [address] [place] [address] Performed By: #### 5 8410-2 ####[facility] LABORATORYCLIA [id number] [place] [address] [place] WBC (Bld) [#/Vol] 7.36 10*3/uL Normal 3.70-11.00 [facility] Comment on above: Order Comment: Speci men Type: BLOOD SPECIMENOrdering Facility: [facility] Address: [address] [place] [address] Performed By: #### 5 8410-2 ####[facility] LABORATORYCLIA [id number] [address] OF [facility] THERAPY NTon 09-18-2022 THERAPY NT Normal [facility] THERAPY NT Normal [facility] Basic metabolic 2000 panelon 09-17-2022 Anion gap [Moles/Vol] 14 mmol/L Normal 9-18 [facility] Comment on above: Order Comment: Speci men Type: BLOOD SPECIMENOrdering Facility: [facility] Address: [address] [place] [address] Performed By: #### 2 4321-2, , 2776-10 ####[facility] LABORATORYCLIA [id number] [address] [place] Calcium [Mass/Vol] 7.4 mg/dL Low 8.5-10.2 [facility] Comment on above: Order Comment: Speci men Type: BLOOD SPECIMENOrdering Facility: [facility] Address: [address] [place] [address] Performed By: #### 2 4321-2, , 2776-10 ####[facility] LABORATORYCLIA [id number] [place] [address] [place] Chloride [Moles/Vol] 100 mmol/L Normal 97-105 [facility] Comment on above: Order Comment: Speci men Type: BLOOD SPECIMENOrdering Facility: [facility] Address: [address] [place] [address] Performed By: #### 2 4321-2, , 2776-10 ####[facility] LABORATORYCLIA [id number] [place] [address] [place] CO2 [Moles/Vol] 17 mmol/L Low 22-30 [facility] Comment on above: Order Comment: Speci men Type: BLOOD SPECIMENOrdering Facility: [facility] Address: [address] [place] [address] Performed By: #### 2 4321-2, , 2776-10 ####[facility]PITALCLIA [id number] [place] [address] [place] Creatinine [Mass/Vol] 0.41 mg/dL Low 0.58-0.96 [facility] Comment on above: Order Comment: Speci men Type: BLOOD SPECIMENOrdering Facility: [facility] Address: [address] [place] [address] Performed By: #### 2 4322, , 2776-10 ####[facility] GROVEIA [id number] [address] OF [facility] ESTIMATED GLOMERULAR FILTRATION RATE 105 mL/min/1.73m??? Normal >=60 [facility] Comment on above: Order Comment: Speci men Type: BLOOD SPECIMENOrdering Facility: [facility] Address: [address] [place] [address] Result Comment: Mariely mated Glomerular Filtration Rate [...] Performed By: #### 2 4321-2, , 2776-10 ####[facility] HOSPITALCLIA [id number] [place] [address] [place] Glucose [Mass/Vol] 88 mg/dL Normal 74-99 [facility] Comment on above: Order Comment: Speci men Type: BLOOD SPECIMENOrdering Facility: [facility] Address: [address] [phone] Result Comment: The [place] [employer] (ADA) provides guidance for cutoff [...] Standards of Medical Care in Diabetes 2016, [place] [employer]. Diabetes Care. 2016.39(Suppl 1). Performed By: #### 2 4321-2, , 2776-10 ####[facility] LABORATORYCLIA [id number] [place] [address] [place] Potassium [Moles/Vol] Normal [facility] Comment on above: Order Comment: Speci men Type: BLOOD SPECIMENOrdering Facility: [facility] Address: [address] [place], [place] [phone] Result Comment: Unab le to assay due to interference from hemolysis. Suggest reorder as clinically indicated. Performed By: #### 2 4321-2, , 2776-10 ####[facility] LABORATORYCLIA [id number] [place] [address] [place] Sodium [Moles/Vol] 131 mmol/L Low 136-144 [facility] Comment on above: Order Comment: Speci men Type: BLOOD SPECIMENOrdering Facility: [facility] Address: [address] [phone] Performed By: #### 2 4321-2, , 2776-10 ####[facility] LABORATORYCLIA [id number] [place] [address] [place] Urea nitrogen [Mass/Vol] 6 mg/dL Low 7-21 [facility] Comment on above: Order Comment: Speci men Type: BLOOD SPECIMENOrdering Facility: [facility] Address: [address] [place] [address] Performed By: #### 2 4321-2, 50261-2, 2777-1 ####[facility] LABORATORYCLIA [id number] [address] [place] CASE MGT INIT ASSESon 2021 CASE MGT INIT ASSES Normal [facility] CBC panel Auto (Bld)on 09-17 Erythrocyte distribution width (RBC) [Ratio] 14.9 % Normal 11.5-15.0 [facility] Comment on above: Order Comment: Speci men Type: BLOOD SPECIMENOrdering Facility: [facility] Address: [address] [place] [address] Performed By: #### 5 8410-2 ####[facility] LABORATORYCLIA [id number] [address] STATES [facility] Hematocrit (Bld) [Volume fraction] 36.9 % Normal 36.0-46.0 [facility] Comment on above: Order Comment: Speci men Type: BLOOD SPECIMENOrdering Facility: [facility] Address: [address] [place] [address] Performed By: #### 5 8410-2 ####[facility] LABORATORYCLIA [id number] [address] [place] Hemoglobin (Bld) [Mass/Vol] 12.5 g/dL Normal 11.5-15.5 [facility] Comment on above: Order Comment: Speci men Type: BLOOD SPECIMENOrdering Facility: [facility] Address: [address] [place] [address] Performed By: #### 5 8410-2 ####[facility] LABORATORYCLIA [id number] [address] [place] MCH (RBC) [Entitic mass] 34.2 pg High 26.0-34.0 [facility] Comment on above: Order Comment: Speci men Type: BLOOD SPECIMENOrdering Facility: [facility] Address: [address] [place] [address] Performed By: #### 5 8410-2 ####[facility] LABORATORYCLIA [id number] [address] STATES [facility] MCHC (RBC) [Mass/Vol] 33.9 g/dL Normal 30.5-36.0 [facility] Comment on above: Order Comment: Speci men Type: BLOOD SPECIMENOrdering Facility: [facility] Address: [address] [place] [address] Performed By: #### 5 8410-2 ####[facility] LABORATORYCLIA [id number] [address] [place] MCV (RBC) [Entitic vol] 101.1 fL High 80.0-100.0 [facility] Comment on above: Order Comment: Speci men Type: BLOOD SPECIMENOrdering Facility: [facility] Address: [address] [place] [address] Performed By: #### 5 8410-2 ####[facility] LABORATORYCLIA [id number] [address] STATES OF [facility] Nucleated RBC (Bld) [#/Vol] 10*3/uL Normal <0.01 [facility] Comment on above: Order Comment: Speci men Type: BLOOD SPECIMENOrdering Facility: [facility] Address: [address] [place] [address] Performed By: #### 5 8410-2 ####[facility] LABORATORYCLIA [id number] [address] [place] Platelet mean volume (Bld) [Entitic vol] 11.2 fL Normal 9.0-12.7 [facility] Comment on above: Order Comment: Speci men Type: BLOOD SPECIMENOrdering Facility: [facility] Address: [address] [place] [address] Performed By: #### 5 8410-2 ####[facility] LABORATORYCLIA [id number] [address] [place] Platelets (Bld) [#/Vol] 97 10*3/uL Low 150-400 [facility] Comment on above: Order Comment: Speci men Type: BLOOD SPECIMENOrdering Facility: [facility] Address: [address] [place] [address] Result Comment: Plat elet count confirmed by manual review of peripheral blood smear Performed By: #### 5 8410-2 ####[facility] LABORATORYCLIA [id number] [place] [address] [place] RBC (Bld) [#/Vol] 3.65 10*6/uL Low 3.90-5.20 [facility] Comment on above: Order Comment: Speci men Type: BLOOD SPECIMENOrdering Facility: [facility] Address: [address] [place] [address] Performed By: #### 5 8410-2 ####[facility] LABORATORYCLIA [id number] [place] [address] [place] WBC (Bld) [#/Vol] 6.16 10*3/uL Normal 3.70-11.00 [facility] Comment on above: Order Comment: Speci men Type: BLOOD SPECIMENOrdering Facility: [facility] Address: [address] [place] [address] Performed By: #### 5 8410-2 ####[facility] LABORATORYCLIA [id number] [place] [address] [place] Magnesium SerPl-mCncon 09-17 Magnesium [Mass/Vol] 1.7 mg/dL Normal 1.7-2.3 [facility] Comment on above: Order Comment: Speci men Type: BLOOD SPECIMENOrdering Facility: [facility] Address: [address] [place] [address] Performed By: #### 2 4321-2, 27083-4, 2777-1 ####[facility] LABORATORYCLIA [id number] [place] [address] [place] Phosphate SerPl-mCncon 09-17 Phosphate [Mass/Vol] 1.1 mg/dL Low 2.7-4.8 [facility] Comment on above: Order Comment: Speci men Type: BLOOD SPECIMENOrdering Facility: [facility] Address: [address] [address] Performed By: #### 2 4321-2, , 2776-10 ####[facility] LABORATORYCLIA [id number] [place] [address] [place] Basic metabolic 2000 panelon 09-16-2022 Anion gap [Moles/Vol] 14 mmol/L Normal 9-18 [facility] Comment on above: Order Comment: Speci men Type: BLOOD SPECIMENOrdering Facility: [facility] Address: [address] [address] Performed By: #### 2 4321-2, 2776-10, ####[facility] LABORATORYCLIA [id number] [place] [address] [place] Calcium [Mass/Vol] 7.7 mg/dL Low 8.5-10.2 [facility] Comment on above: Order Comment: Speci men Type: BLOOD SPECIMENOrdering Facility: [facility] Address: [address] [address] Performed By: #### 2 4320-2, 2776-10, ####[facility] LABORATORYCLIA [id number] [address] [place] Chloride [Moles/Vol] 100 mmol/L Normal 97-105 [facility] Comment on above: Order Comment: Speci men Type: BLOOD SPECIMENOrdering Facility: [facility] Address: [address] [address] Performed By: #### 2 1-2, 2776-10, ####[facility] LABORATORYCLIA [id number] [place] [address] [place] CO2 [Moles/Vol] 23 mmol/L Normal 22-30 [facility] Comment on above: Order Comment: Speci men Type: BLOOD SPECIMENOrdering Facility: [facility] Address: [address] [address] Performed By: #### 2 4321-2, 2777-, ####[facility] H[facility]PITALCLIA [id number] [place] [address] [place] [facility] Creatinine [Mass/Vol] 0.42 mg/dL Low 0.58-0.96 [facility] Comment on above: Order Comment: Speci men Type: BLOOD SPECIMENOrdering Facility: [facility] Address: [address] [id number] Performed By: #### 2 4321-2, 2777-, ####[facility] HOSPITALCLIA [id number] [place] [address] [facility] ESTIMATED GLOMERULAR FILTRATION RATE 105 mL/min/1.73m??? Normal >=60 [facility] Comment on above: Order Comment: Speccy lujan Type: BLOOD SPECIMENOrdering Facility: [facility] Address: [address] [place] [address] Result Comment: Mariely mated Glomerular Filtration Rate [...] GFR. Performed By: #### 2 4321-2, 2777-, ####[facility] LABORATORYCLIA [id number] [place] [address] [place] Glucose [Mass/Vol] 102 mg/dL High 74-99 [facility] Comment on above: Order Comment: Speci tai Type: BLOOD SPECIMENOrdering Facility: [facility] Address: [address] [place] [address] Result Comment: The [place] [employer] (ADA) provides guidance for cutoff [...] Standards of Medical Care in Diabetes 2016, [place] [employer]. Diabetes Care. 2016.39(Suppl 1). Performed By: #### 2 4321-2, 2777, ####[facility] LABORATORYCLIA [id number] [address] STATES OF [facility] Potassium [Moles/Vol] 3.5 mmol/L Low 3.7-5.1 [facility] Comment on above: Order Comment: Cary lujan Type: BLOOD SPECIMENOrdering Facility: [facility] Address: [address] [place] [address] Performed By: #### 2 4321-2, 2776-10, ####[facility] HOSPITALCLIA [id number] [address] STATES [facility] Sodium [Moles/Vol] 137 mmol/L Normal 136-144 [facility] Comment on above: Order Comment: Cary lujan Type: BLOOD SPECIMENOrdering Facility: [facility] Address: [address] [place] [address] Performed By: #### 2 4321-2, 2776-10, ####[facility] LABORATORYCLIA [id number] [address] [place] Urea nitrogen [Mass/Vol] 11 mg/dL Normal 7-21 [facility] Comment on above: Order Comment: Cary lujan Type: BLOOD SPECIMENOrdering Facility: [facility] Address: [address] [place] [address] Performed By: #### 2 4321-2, 2776-10, ####[facility] LABORATORYCLIA [id number] [address] [place] CBC panel Auto (Bld)on 09-16 Erythrocyte distribution width (RBC) [Ratio] 15.4 % High 11.5-15.0 [facility] Comment on above: Order Comment: Speci men Type: BLOOD SPECIMENOrdering Facility: [facility] Address: [address] [place] [address] Performed By: #### 5 8410-2 ####[facility] LABORATORYCLIA [id number] [address] OF [facility] Hematocrit (Bld) [Volume fraction] 36.7 % Normal 36.0-46.0 [facility] Comment on above: Order Comment: Speci men Type: BLOOD SPECIMENOrdering Facility: [facility] Address: [address] [place] [address] Performed By: #### 5 8410-2 ####[facility] LABORATORYCLIA [id number] [address] [place] Hemoglobin (Bld) [Mass/Vol] 12.3 g/dL Normal 11.5-15.5 [facility] Comment on above: Order Comment: Speci men Type: BLOOD SPECIMENOrdering Facility: [facility] Address: [address] [place] [address] Performed By: #### 5 8410-2 ####[facility] LABORATORYCLIA [id number] [address] [place] MCH (RBC) [Entitic mass] 33.7 pg Normal 26.0-34.0 [facility] Comment on above: Order Comment: Speci men Type: BLOOD SPECIMENOrdering Facility: [facility] Address: [address] [place] [address] Performed By: #### 5 8410-2 ####[facility] LABORATORYCLIA [id number] [address] [place] MCHC (RBC) [Mass/Vol] 33.5 g/dL Normal 30.5-36.0 [facility] Comment on above: Order Comment: Speci men Type: BLOOD SPECIMENOrdering Facility: [facility] Address: [address] [place] [address] Performed By: #### 5 8410-2 ####[facility] LABORATORYCLIA [id number] [address] [place] MCV (RBC) [Entitic vol] 100.5 fL High 80.0-100.0 [facility] Comment on above: Order Comment: Speci men Type: BLOOD SPECIMENOrdering Facility: [facility] Address: [address] [place] [address] Performed By: #### 5 8410-2 ####[facility] LABORATORYCLIA [id number] [address] [place] Nucleated RBC (Bld) [#/Vol] 10*3/uL Normal <0.01 [facility] Comment on above: Order Comment: Speci men Type: BLOOD SPECIMENOrdering Facility: [facility] Address: [address] [place] [address] Performed By: #### 5 8410-2 ####[facility] LABORATORYCLIA [id number] [address] STATES [facility] Platelet mean volume (Bld) [Entitic vol] 10.2 fL Normal 9.0-12.7 [facility] Comment on above: Order Comment: Speci men Type: BLOOD SPECIMENOrdering Facility: [facility] Address: [address] [place] [address] Performed By: #### 5 8410-2 ####[facility] LABORATORYCLIA [id number] [address] [place] Platelets (Bld) [#/Vol] 118 10*3/uL Low 150-400 [facility] Comment on above: Order Comment: Speci men Type: BLOOD SPECIMENOrdering Facility: [facility] Address: [address] [place] [address] Performed By: #### 5 8410-2 ####[facility] LABORATORYCLIA [id number] [address] [place] RBC (Bld) [#/Vol] 3.65 10*6/uL Low 3.90-5.20 [facility] Comment on above: Order Comment: Speci men Type: BLOOD SPECIMENOrdering Facility: [facility] Address: [address] [place] [address] Performed By: #### 5 8410-2 ####[facility] LABORATORYCLIA [id number] [address] OF [facility] WBC (Bld) [#/Vol] 6.17 10*3/uL Normal 3.70-11.00 [facility] Comment on above: Order Comment: Speci men Type: BLOOD SPECIMENOrdering Facility: [facility] Address: [address] [place] [address] Performed By: #### 5 8410-2 ####[facility] LABORATORYCLIA [id number] [address] CONSULT PROGon 09-16-2022 CONSULT PROG Normal [facility] Magnesium SerPl-mCncon 09-16 Magnesium [Mass/Vol] 2.2 mg/dL Normal 1.7-2.3 [facility] Comment on above: Order Comment: Speci men Type: BLOOD SPECIMENOrdering Facility: [facility] Address: [address] [place] [address] Performed By: #### 2 4321-2, 2777, ####[facility] LABORATORYCLIA [id number] [address] Phosphate SerPl-mCncon 09-16 Phosphate [Mass/Vol] 1.2 mg/dL Low 2.7-4.8 [facility] Comment on above: Order Comment: Speci men Type: BLOOD SPECIMENOrdering Facility: [facility] Address: [address] [place] [address] Performed By: #### 2 4321-2, 2777, ####[facility] LABORATORYCLIA [id number] [address] [place] THERAPY NTon 09-16-2022 THERAPY NT Normal [facility] THERAPY NT Normal [facility] Basic metabolic 2000 panelon 09-15-2022 Anion gap [Moles/Vol] 22 mmol/L High 9-18 [facility] Comment on above: Order Comment: Speci men Type: BLOOD SPECIMENOrdering Facility: [facility] Address: [address] [place] [address] Performed By: #### 1 9123-9, 27704-13, 11186-7 ####[facility] LABORATORYCLIA [id number] [place] [address] [place] Calcium [Mass/Vol] 8.6 mg/dL Normal 8.5-10.2 [facility] Comment on above: Order Comment: Speci men Type: BLOOD SPECIMENOrdering Facility: [facility] Address: [address] [place] [address] Performed By: #### 1 9123-9, 2776-10, ####[facility] LABORATORYCLIA [id number] [place] [address] [place] Chloride [Moles/Vol] 99 mmol/L Normal 97-105 [facility] Comment on above: Order Comment: Speci men Type: BLOOD SPECIMENOrdering Facility: [facility] Address: [address] [place] [address] Performed By: #### 1 9123-9, 2776-10, ####[facility] LABORATORYCLIA [id number] [place] [address] [place] CO2 [Moles/Vol] 20 mmol/L Low 22-30 [facility] Comment on above: Order Comment: Speci men Type: BLOOD SPECIMENOrdering Facility: [facility] Address: [address] [place] [address] Performed By: #### 1 9123-9, 27704-13, 21566-9 ####[facility] LABORATORYCLIA [id number] [place] [address] [place] Creatinine [Mass/Vol] 0.48 mg/dL Low 0.58-0.96 [facility] Comment on above: Order Comment: Speci men Type: BLOOD SPECIMENOrdering Facility: [facility] Address: [address] [address] Performed By: #### 1 9123-9, 2777-1, 87874-5 ####[facility] GROVEIA [id number] [address] ESTIMATED GLOMERULAR FILTRATION RATE 101 mL/min/1.73m??? Normal >=60 [facility] Comment on above: Order Comment: Cary lujan Type: BLOOD SPECIMENOrdering Facility: [facility] Address: [address] [address] Result Comment: Mariely mated Glomerular Filtration Rate [...] GFR. Performed By: #### 1 9123-9, 2777-1, 26625-4 ####[facility]IA [id number] [place] [address] [place] Glucose [Mass/Vol] 69 mg/dL Low 74-99 [facility] Comment on above: Order Comment: Cary lujan Type: BLOOD SPECIMENOrdering Facility: [facility] Address: [address] [place] [address] Result Comment: The [place] [employer] (ADA) provides guidance for cutoff [...] Standards of Medical Care in Diabetes 2016, [place] [employer]. Diabetes Care. 2016.39(Suppl 1). Performed By: #### 1 9123-9, 2777-1, 32542-5 ####[facility] LABORATORYCLIA [id number] [address] [place] Potassium [Moles/Vol] 4.2 mmol/L Normal 3.7-5.1 [facility] Comment on above: Order Comment: Speci men Type: BLOOD SPECIMENOrdering Facility: [facility] Address: [address] [place] [address] Performed By: #### 1 9123-9, 2777-, 83762-1 ####[facility] LABORATORYCLIA [id number] [address] STATES OF [facility] Sodium [Moles/Vol] 141 mmol/L Normal 136-144 [facility] Comment on above: Order Comment: Speci men Type: BLOOD SPECIMENOrdering Facility: [facility] Address: [address] [place] [address] Performed By: #### 1 9123-9, 2777-, 63212-4 ####[facility]ITALCLIA [id number] [address] STATES [facility] Urea nitrogen [Mass/Vol] 14 mg/dL Normal 7-21 [facility] Comment on above: Order Comment: Speci men Type: BLOOD SPECIMENOrdering Facility: [facility] Address: [address] [place] [address] Performed By: #### 1 9123-9, 2777-, 51430-7 ####[facility] LABORATORYCLIA [id number] [address] CBC panel Auto (Bld)on 09-15 Erythrocyte distribution width (RBC) [Ratio] 15.5 % High 11.5-15.0 [facility] Comment on above: Order Comment: Speci men Type: BLOOD SPECIMENOrdering Facility: [facility] Address: [address] [place] [address] Performed By: #### 5 8410-2 ####[facility] LABORATORYCLIA [id number] [address] Hematocrit (Bld) [Volume fraction] 40.3 % Normal 36.0-46.0 [facility] Comment on above: Order Comment: Speci men Type: BLOOD SPECIMENOrdering Facility: [facility] Address: [address] [place] [address] Performed By: #### 5 8410-2 ####[facility] LABORATORYCLIA [id number] [address] STATES OF [facility] Hemoglobin (Bld) [Mass/Vol] 13.9 g/dL Normal 11.5-15.5 [facility] Comment on above: Order Comment: Speci men Type: BLOOD SPECIMENOrdering Facility: [facility] Address: [address] [place] [address] Performed By: #### 5 8410-2 ####[facility] LABORATORYCLIA [id number] [address] [place] MCH (RBC) [Entitic mass] 34.2 pg High 26.0-34.0 [facility] Comment on above: Order Comment: Speci men Type: BLOOD SPECIMENOrdering Facility: [facility] Address: [address] [place] [address] Performed By: #### 5 8410-2 ####[facility] LABORATORYCLIA [id number] [address] [place] MCHC (RBC) [Mass/Vol] 34.5 g/dL Normal 30.5-36.0 [facility] Comment on above: Order Comment: Speci men Type: BLOOD SPECIMENOrdering Facility: [facility] Address: [address] [place] [address] Performed By: #### 5 8410-2 ####[facility] LABORATORYCLIA [id number] [address] [place] MCV (RBC) [Entitic vol] 99.3 fL Normal 80.0-100.0 [facility] Comment on above: Order Comment: Speci men Type: BLOOD SPECIMENOrdering Facility: [facility] Address: [address] [place] [address] Performed By: #### 5 8410-2 ####[facility] LABORATORYCLIA [id number] [address] [place] Nucleated RBC (Bld) [#/Vol] 10*3/uL Normal <0.01 [facility] Comment on above: Order Comment: Speci men Type: BLOOD SPECIMENOrdering Facility: [facility] Address: [address] [place] [address] Performed By: #### 5 8410-2 ####[facility] LABORATORYCLIA [id number] [address] [place] Platelet mean volume (Bld) [Entitic vol] 10.1 fL Normal 9.0-12.7 [facility] Comment on above: Order Comment: Speci men Type: BLOOD SPECIMENOrdering Facility: [facility] Address: [address] [place] [address] Performed By: #### 5 8410-2 ####[facility] LABORATORYCLIA [id number] [address] Platelets (Bld) [#/Vol] 141 10*3/uL Low 150-400 [facility] Comment on above: Order Comment: Speci men Type: BLOOD SPECIMENOrdering Facility: [facility] Address: [address] [place] [address] Performed By: #### 5 8410-2 ####[facility] LABORATORYCLIA [id number] [address] [place] RBC (Bld) [#/Vol] 4.06 10*6/uL Normal 3.90-5.20 [facility] Comment on above: Order Comment: Speci men Type: BLOOD SPECIMENOrdering Facility: [facility] Address: [address] [place] [address] Performed By: #### 5 8410-2 ####[facility] LABORATORYCLIA [id number] [address] [place] WBC (Bld) [#/Vol] 7.07 10*3/uL Normal 3.70-11.00 [facility] Comment on above: Order Comment: Cary lujan Type: BLOOD SPECIMENOrdering Facility: [facility] Address: [address] [place] [address] Performed By: #### 5 8410-2 ####[facility] LABORATORYCLIA [id number] [place] [address] [place] CONSULT PROGon 09-15-2022 CONSULT PROG Normal [facility] CONSULT PROG Normal [facility] CT BRAIN WO IVCONon 09-15-[address] BRAIN WO IVCON Normal [facility] ED NOTEon 09-15-2022 ED NOTE HNO ID: [id number] Author: Imani Feliz RN Service: Emergency Medicine Author Type: Registered Nurse Type: ED Notes Filed: 09/15/2022 2:27 PM Note Text: Report called. Bed not ready Normal [facility] HIGH SENSITIVITY TROPONIN To n 09-15-2022 HIGH SENSITIVITY JACI 11 ng/L Normal <12 [facility] Comment on above: Order Comment: Cary lujan Type: BLOOD SPECIMENOrdering Facility: [facility] Address: [address] [place] [address] Result Comment: When assessing risk for acute [...] day MACE. Performed By: #### H STNT ####[facility] LABORATORYCLIA [id number] [place] [address] [place] Magnesium SerPl-mCncon 09-15 Magnesium [Mass/Vol] 1.4 mg/dL Low 1.7-2.3 [facility] Comment on above: Order Comment: Cary lujan Type: BLOOD SPECIMENOrdering Facility: [facility] Address: [address] [place] [address] Performed By: #### 1 9123-9, 2777-1, 41135-4 ####[facility] LABORATORYCLIA [id number] [place] [address] [place] Phosphate SerPl-mCncon 09-15 Phosphate [Mass/Vol] 2.2 mg/dL Low 2.7-4.8 [facility] Comment on above: Order Comment: Speci men Type: BLOOD SPECIMENOrdering Facility: [facility] Address: [address] [place] [address] Performed By: #### 1 9123-9, 2777-1, 77774-3 ####[facility] LABORATORYCLIA [id number] [place] [address] [place] TOX SCREEN ROUT URon 022 Amphetamines Confirm (U) [Mass/Vol] Negative Normal Negative [facility] Comment on above: Order Comment: Speci men Type: URINE SPECIMENOrdering Facility: [facility] Address: [address] [place] [address] Result Comment: Cuto ff threshold at 1000 ng/mL. Performed By: #### U TOX2 ####[facility] LABORATORYCLIA [id number] [place] [address] [place] BARBITURATES, URINE Negative Normal Negative [facility] Comment on above: Order Comment: Speci men Type: URINE SPECIMENOrdering Facility: [facility] Address: [address] [place] [address] Result Comment: Cuto ff threshold at 200 ng/mL. Performed By: #### U TOX2 ####[facility]ORATORYCLIA [id number] [place] [address] [place] BENZODIAZEPINES, UR Negative Normal Negative [facility] Comment on above: Order Comment: Speci men Type: URINE SPECIMENOrdering Facility: [facility] Address: [address] [place] [address] Result Comment: Cuto ff threshold at 200 ng/mL. Performed By: #### U TOX2 ####[facility]ORATORYCLIA [id number] [place] [address] [place] CANNABINOIDS,URINE Negative Normal Negative [facility] Comment on above: Order Comment: Speci men Type: URINE SPECIMENOrdering Facility: [facility] Address: [address] [place] [address] Result Comment: Cuto ff threshold at 50 ng/mL. Performed By: #### U TOX2 ####[facility]ATORYCLIA [id number] [place] [address] [place] Cocaine Ql (U) Negative Normal Negative [facility] Comment on above: Order Comment: Speci men Type: URINE SPECIMENOrdering Facility: [facility] Address: [address] [place] [address] Result Comment: Cuto ff threshold at 300 ng/mL. Performed By: #### U TOX2 ####[facility] LABORATORYCLIA [id number] [place] [address] [place] Ethanol (U) [Mass/Vol] 69 mg/dL High <11 [facility] Comment on above: Order Comment: Speci men Type: URINE SPECIMENOrdering Facility: [facility] Address: [address] [place] [address] Performed By: #### U TOX2 ####[facility] LABORATORYCLIA [id number] [address] Opiates Screen Ql (U) Negative Normal Negative [facility] Comment on above: Order Comment: Speci men Type: URINE SPECIMENOrdering Facility: [facility] Address: [address] [place] [address] Result Comment: Cuto ff threshold at 300 ng/mL. Performed By: #### U TOX2 ####[facility] LABORATORYCLIA [id number] [address] [place] oxyCODONE cutoff Screen (U) [Mass/Vol] Negative Normal Negative [facility] Comment on above: Order Comment: Speci men Type: URINE SPECIMENOrdering Facility: [facility] Address: [address] [place] [address] Performed By: #### U TOX2 ####[facility] LABORATORYCLIA [id number] [address] [place] Phencyclidine Ql (U) Negative Normal Negative [facility] Comment on above: Order Comment: Speci men Type: URINE SPECIMENOrdering Facility: [facility] Address: [address] [place] [address] Result Comment: Cuto ff threshold at 25 ng/mL. Performed By: #### U TOX2 ####[facility] LABORATORYCLIA [id number] [address] Urinalysis complete panel (U )on 09-15-2022 Bacteria LM.HPF (Urine sed) [#/Area] Moderate Abnormal None Seen [facility] Comment on above: Order Comment: Speci men Type: URINE SPECIMENOrdering Facility: [facility] Address: [address] [place] [address] Performed By: #### 2 4356-8 ####[facility] LABORATORYCLIA [id number] [address] STATES [facility] Bilirubin Ql (U) Negative Normal Negative [facility] Comment on above: Order Comment: Speci men Type: URINE SPECIMENOrdering Facility: [facility] Address: [address] [place] [address] Performed By: #### 2 4356-8 ####[facility] LABORATORYCLIA [id number] [address] Clarity (Unsp spec) Clear Normal Clear [facility] Comment on above: Order Comment: Speci men Type: URINE SPECIMENOrdering Facility: [facility] Address: [address] [place] [address] Performed By: #### 2 4356-8 ####[facility] LABORATORYCLIA [id number] [address] Color (U) Yellow Normal yellow [facility] Comment on above: Order Comment: Speci men Type: URINE SPECIMENOrdering Facility: [facility] Address: [address] [place] [address] Performed By: #### 2 4356-8 ####[facility] [facility] LABORATORYCLIA [id number] [address] Glucose Test strip (U) [Mass/Vol] Negative Normal Negative [facility] Comment on above: Order Comment: Speci men Type: URINE SPECIMENOrdering Facility: [facility] Address: [address] [place] [address] Performed By: #### 2 4356-8 ####[facility] LABORATORYCLIA [id number] [address] STATES [facility] Hemoglobin Ql (U) Negative Normal Negative [facility] Comment on above: Order Comment: Speci men Type: URINE SPECIMENOrdering Facility: [facility] Address: [address] [place] [address] Performed By: #### 2 4356-8 ####[facility] LABORATORYCLIA [id number] [address] Ketones Ql (U) 3+ Abnormal Negative [facility] Comment on above: Order Comment: Speci men Type: URINE SPECIMENOrdering Facility: [facility] Address: [address] [place] [address] Performed By: #### 2 4356-8 ####[facility] LABORATORYCLIA [id number] [address] Leukocyte esterase Test strip Ql (U) 25 Jennifer/mL Abnormal Negative [facility] Comment on above: Order Comment: Speci men Type: URINE SPECIMENOrdering Facility: [facility] Address: [address] [place] [address] Performed By: #### 2 4356-8 ####[facility] LABORATORYCLIA [id number] [address] [place] Nitrite Ql (U) 2+ Abnormal Negative [facility] Comment on above: Order Comment: Speci men Type: URINE SPECIMENOrdering Facility: [facility] Address: [address] [place] [address] Performed By: #### 2 4356-8 ####[facility] LABORATORYCLIA [id number] [address] [place] pH (U) 5.5 [pH] Normal 5.0-8.0 [facility] Comment on above: Order Comment: Speci men Type: URINE SPECIMENOrdering Facility: [facility] Address: [address] [place] [address] Performed By: #### 2 4356-8 ####[facility] LABORATORYCLIA [id number] [address] Protein (U) [Mass/Vol] Trace Abnormal Negative [facility] Comment on above: Order Comment: Speci men Type: URINE SPECIMENOrdering Facility: [facility] Address: [address] [place] [address] Performed By: #### 2 4356-8 ####[facility] LABORATORYCLIA [id number] [address] RBC LM.HPF (Urine sed) [#/Area] 0-3 /HPF Normal 0-3 /HPF [facility] Comment on above: Order Comment: Speci men Type: URINE SPECIMENOrdering Facility: [facility] Address: [address] [place] [address] Performed By: #### 2 4356-8 ####[facility] LABORATORYCLIA [id number] [address] Specific gravity (U) [Rel density] 1.016 Normal 1.005-1.030 [facility] Comment on above: Order Comment: Speci men Type: URINE SPECIMENOrdering Facility: [facility] Address: [address] [place] [address] Performed By: #### 2 4356-8 ####[facility] LABORATORYCLIA [id number] [address] Urobilinogen Ql (U) Normal Normal Negative [facility] Comment on above: Order Comment: Speci men Type: URINE SPECIMENOrdering Facility: [facility] Address: [address] [place] [address] Performed By: #### 2 4356-8 ####[facility] LABORATORYCLIA [id number] [address] [place] WBC LM.HPF (Urine sed) [#/Area] 0-5 /HPF Normal 0-5 /HPF [facility] Comment on above: Order Comment: Speci men Type: URINE SPECIMENOrdering Facility: [facility] Address: [address] [place] [address] Performed By: #### 2 4356-8 ####[facility] LABORATORYCLIA [id number] [address] 25(OH)D3 SerPl-mCncon 2021 25-hydroxyvitamin D3 [Mass/Vol] 38.8 ng/mL Normal >=30.0 [facility] Comment on above: Order Comment: Speci men Type: BLOOD SPECIMENOrdering Facility: [facility] Address: [address] [place] [address] Result Comment: Clas sification of 25 [place] Vitamin D status:Deficiency: <= 20.0 ng/ml.Insufficiency: 21.0-29.0 ng/ml.Sufficiency: >= 30.0 ng/ml. Performed By: #### 1 989-3 ####[facility] LABORATORYCLIA [id number] [address] OF [facility] ALLIED HEALTHon 09-14-2022 ALLIED HEALTH Normal [facility] ALLIED HEALTH Normal [facility] Absolute lymphocyte countOrd ered By: Dr. Arias on 09-14-2022 Lymphocytes Auto (Unsp spec) [#/Vol] 1.85 10*3/uL 0.83-4.51 [facility] Amylase SerPl-cCncon 022 Amylase [Catalytic activity/Vol] 57 U/L Normal 30-104 [facility] Comment on above: Order Comment: Speci men Type: BLOOD SPECIMENOrdering Facility: [facility] Address: [address] [place] [address] Performed By: #### 3 040-3, 31098-4, 1798-8 ####[facility] LABORATORYCLIA [id number] [address] [place] Basophil percentageOrdered B y: Dr. Arias on 09-14-2022 Basophils/100 WBC (Bld) 1.5 % 0-1 [facility] Eosinophils/100 WBC (Bld) 1.5 % 0-5 [facility] Neutrophils (Bld) [#/Vol] 3.2 10*3/uL 2.0-7.7 [facility] Neutrophils/100 WBC (Bld) 55.5 % 47-70 [facility] WBC (Bld) [#/Vol] 5.9 10*3/uL 4.4-11.0 [facility] Bilirubin [Mass/Vol] 0.70 mg/dL 0.20-1.00 [facility] Comment on above: For patients on eltr ombopag therapy, use of Dimension [place] TBIL is not recommended. Chloride [Moles/Vol] 107 mmol/L 98-107 [facility] Glucose [Mass/Vol] 81 mg/dL 74-106 [facility] Potassium [Moles/Vol] 4.7 mmol/L 3.5-5.1 [facility] Comment on above: Moderate Hemolysis, Result may be falsely increased. Protein [Mass/Vol] 6.8 g/dL 6.4-8.2 [facility] Sodium [Moles/Vol] 138 mmol/L 136-145 [facility] Blood erythrocytes count (nu mber/volume)Ordered By: Dr. Arias on 09-14-2022 RBC (Bld) [#/Vol] 4.33 10*6/uL 4.2-5.4 [facility] Blood hemoglobin measurement (mass/volume)Ordered By: Dr. Arias on 09-14-2022 Hemoglobin (Bld) [Mass/Vol] 15.1 g/dL 12.0-15.0 [facility] Blood lymphocytes/100 leukoc ytesOrdered By: Dr. Arias on 09-14-2022 Lymphocytes/100 WBC (Bld) 31.6 % 19-41 [facility] Blood monocytes/100 leukocyt esOrdered By: Dr. Arias on 09-14-2022 Monocytes/100 WBC (Bld) 9.7 % 0-10 [facility] Blood platelet mean volumeOr dered By: Dr. Arias on 09-14-2022 Platelet mean volume (Bld) [Entitic vol] 9.6 fL 6.2-12.0 [facility] CBC panel Auto (Bld)on 09-14 Erythrocyte distribution width (RBC) [Ratio] 15.4 % High 11.5-15.0 [facility] Comment on above: Order Comment: Speci men Type: BLOOD SPECIMENOrdering Facility: [facility] Address: [address] [place] [address] Performed By: #### 5 8410-2 ####[facility] LABORATORYCLIA [id number] [address] OF [facility] Hematocrit (Bld) [Volume fraction] 44.1 % Normal 36.0-46.0 [facility] Comment on above: Order Comment: Speci men Type: BLOOD SPECIMENOrdering Facility: [facility] Address: [address] [place] [address] Performed By: #### 5 8410-2 ####[facility] LABORATORYCLIA [id number] [address] OF [facility] Hemoglobin (Bld) [Mass/Vol] 15.0 g/dL Normal 11.5-15.5 [facility] Comment on above: Order Comment: Speci men Type: BLOOD SPECIMENOrdering Facility: [facility] Address: [address] [place] [address] Performed By: #### 5 8410-2 ####[facility] LABORATORYCLIA [id number] [address] [place] MCH (RBC) [Entitic mass] 33.7 pg Normal 26.0-34.0 [facility] Comment on above: Order Comment: Speci men Type: BLOOD SPECIMENOrdering Facility: [facility] Address: [address] [place] [address] Performed By: #### 5 8410-2 ####[facility] LABORATORYCLIA [id number] [address] [place] MCHC (RBC) [Mass/Vol] 34.0 g/dL Normal 30.5-36.0 [facility] Comment on above: Order Comment: Speci men Type: BLOOD SPECIMENOrdering Facility: [facility] Address: [address] [place] [place] [address] Performed By: #### 5 8410-2 ####[facility] LABORATORYCLIA [id number] [address] [place] MCV (RBC) [Entitic vol] 99.1 fL Normal 80.0-100.0 [facility] Comment on above: Order Comment: Speci men Type: BLOOD SPECIMENOrdering Facility: [facility] Address: [address] [place] [address] Performed By: #### 5 8410-2 ####[facility] LABORATORYCLIA [id number] [address] [place] Nucleated RBC (Bld) [#/Vol] 10*3/uL Normal <0.01 [facility] Comment on above: Order Comment: Speci men Type: BLOOD SPECIMENOrdering Facility: [facility] Address: [address] [place] [address] Performed By: #### 5 8410-2 ####[facility] LABORATORYCLIA [id number] [address] Platelet mean volume (Bld) [Entitic vol] 9.8 fL Normal 9.0-12.7 [facility] Comment on above: Order Comment: Speci men Type: BLOOD SPECIMENOrdering Facility: [facility] Address: [address] [place] [address] Performed By: #### 5 8410-2 ####[facility] LABORATORYCLIA [id number] [address] [place] Platelets (Bld) [#/Vol] 160 10*3/uL Normal 150-400 [facility] Comment on above: Order Comment: Speci men Type: BLOOD SPECIMENOrdering Facility: [facility] Address: [address] [place] [address] Performed By: #### 5 8410-2 ####[facility] LABORATORYCLIA [id number] [address] OF [facility] RBC (Bld) [#/Vol] 4.45 10*6/uL Normal 3.90-5.20 [facility] Comment on above: Order Comment: Speci men Type: BLOOD SPECIMENOrdering Facility: [facility] Address: [address] [place] [address] Performed By: #### 5 8410-2 ####[facility] LABORATORYCLIA [id number] [address] [place] WBC (Bld) [#/Vol] 5.14 10*3/uL Normal 3.70-11.00 [facility] Comment on above: Order Comment: Speci men Type: BLOOD SPECIMENOrdering Facility: [facility] Address: [address] [place] [address] Performed By: #### 5 8410-2 ####[facility] LABORATORYCLIA [id number] [address] [place] CONSULTon 09-14-2022 CONSULT Normal [facility] CT BRAIN WO IVCONon 09-14-20 CT BRAIN WO IVCON Normal [facility] Comprehensive metabolic 2000 panelon 09-14-2022 Albumin [Mass/Vol] 3.2 g/dL Low 3.9-4.9 [facility] Comment on above: Order Comment: Speci men Type: BLOOD SPECIMENOrdering Facility: [facility] Address: [address] [place] [address] Performed By: #### 3 040-3, 31724-1, 1798-05 ####[facility] LABORATORYCLIA [id number] [address] ALP [Catalytic activity/Vol] 67 U/L Normal 34-123 [facility] Comment on above: Order Comment: Speci men Type: BLOOD SPECIMENOrdering Facility: [facility] Address: [address] [place] [address] Performed By: #### 3 040-3, 94662-4, 1798-05 ####[facility]ORATORYCLIA [id number] [address] STATES OF [facility] ALT With P-5'-P [Catalytic activity/Vol] 48 U/L High 7-38 [facility] Comment on above: Order Comment: Speci men Type: BLOOD SPECIMENOrdering Facility: [facility] Address: [address] [place] [address] Performed By: #### 3 040-3, , 1798-05 ####[facility] LABORATORYCLIA [id number] [address] Anion gap [Moles/Vol] 17 mmol/L Normal 9-18 [facility] Comment on above: Order Comment: Speci men Type: BLOOD SPECIMENOrdering Facility: [facility] Address: [address] [place] [address] Performed By: #### 3 040-3, , 1798-05 ####[facility] LABORATORYCLIA [id number] [address] OF [facility] AST With P-5'-P [Catalytic activity/Vol] 122 U/L High 13-35 [facility] Comment on above: Order Comment: Speci men Type: BLOOD SPECIMENOrdering Facility: [facility] Address: [address] [place] [address] Performed By: #### 3 040-3, , 1798-05 ####[facility] LABORATORYCLIA [id number] [address] [place] Bilirubin [Mass/Vol] 0.4 mg/dL Normal 0.2-1.3 [facility] Comment on above: Order Comment: Speci men Type: BLOOD SPECIMENOrdering Facility: [facility] Address: [address] [place] [address] Performed By: #### 3 040-3, , 1798-05 ####[facility] LABORATORYCLIA [id number] [address] [place] Calcium [Mass/Vol] 7.5 mg/dL Low 8.5-10.2 [facility] Comment on above: Order Comment: Speci men Type: BLOOD SPECIMENOrdering Facility: [facility] Address: [address] [place] [address] Performed By: #### 3 040-3, , 1798-05 ####[facility] LABORATORYCLIA [id number] [place] [address] [place] Chloride [Moles/Vol] 103 mmol/L Normal 97-105 [facility] Comment on above: Order Comment: Speci men Type: BLOOD SPECIMENOrdering Facility: [facility] Address: [address] [place] [address] Performed By: #### 3 040-3, , 1798-05 ####[facility] LABORATORYCLIA [id number] [place] [address] [place] CO2 [Moles/Vol] 21 mmol/L Low 22-30 [facility] Comment on above: Order Comment: Speci men Type: BLOOD SPECIMENOrdering Facility: [facility] Address: [address] [place] [address] Performed By: #### 3 040-3, , 1798-05 ####[facility] LABORATORYCLIA [id number] [place] [address] [place] Creatinine [Mass/Vol] 0.55 mg/dL Low 0.58-0.96 [facility] Comment on above: Order Comment: Speci men Type: BLOOD SPECIMENOrdering Facility: [facility] Address: [address] [place] [address] Performed By: #### 3 040-3, , 1798-05 ####[facility] LABORATORYCLIA [id number] [address] [place] ESTIMATED GLOMERULAR FILTRATION RATE 98 mL/min/1.73m??? Normal >=60 [facility] Comment on above: Order Comment: Speci men Type: BLOOD SPECIMENOrdering Facility: [facility] Address: [address] [place] [address] Result Comment: Mariely mated Glomerular Filtration Rate [...] actual GFR. Performed By: #### 3 040-3, 88387-9, 1798-05 ####[facility]PITALCLIA [id number] [place] [address] [place] Glucose [Mass/Vol] 89 mg/dL Normal 74-99 [facility] Comment on above: Order Comment: Speccy lujan Type: BLOOD SPECIMENOrdering Facility: [facility] Address: [address] [place] [address] Result Comment: The [place] [employer] (ADA) provides guidance for cutoff [...] Standards of Medical Care in Diabetes 2016, [place] [employer]. Diabetes Care. 2016.39(Suppl 1). Performed By: #### 3 040-3, 71653-8, 1798-05 ####[facility] GROVEIA [id number] [place] [id number] [place] Potassium [Moles/Vol] 3.6 mmol/L Low 3.7-5.1 [facility] Comment on above: Order Comment: Cary lujan Type: BLOOD SPECIMENOrdering Facility: [facility] Address: [address] [place], [place] [phone] Performed By: #### 3 040-3, 88897-7, 1798-05 ####[facility] LABORATORYCLIA [id number] [place] [address] [place] Protein [Mass/Vol] 5.9 g/dL Low 6.3-8.0 [facility] Comment on above: Order Comment: Speci men Type: BLOOD SPECIMENOrdering Facility: [facility] Address: [address] [place] [address] Performed By: #### 3 040-3, 19904-2, 1798-05 ####[facility] LABORATORYCLIA [id number] [address] [place] Sodium [Moles/Vol] 141 mmol/L Normal 136-144 [facility] Comment on above: Order Comment: Speci men Type: BLOOD SPECIMENOrdering Facility: [facility] Address: [address] [place] [address] Performed By: #### 3 040-3, , 1798-05 ####[facility] LABORATORYCLIA [id number] [address] STATES [facility] Urea nitrogen [Mass/Vol] 12 mg/dL Normal 7-21 [facility] Comment on above: Order Comment: Speci men Type: BLOOD SPECIMENOrdering Facility: [facility] Address: [address] [place] [address] Performed By: #### 3 040-3, , 1798-05 ####[facility] LABORATORYCLIA [id number] [address] STATES [facility] Determination of erythrocyte mean corpuscular volume (MCV)Ordered By: Dr. Arias on 09-14-2022 MCV (RBC) [Entitic vol] 99.5 fL 81-99 [facility] ECG COMPLETEon 09-14-2022 ECG COMPLETE Normal [facility] ED NOTEon 09-14-2022 ED NOTE HNO ID: [id number] Author: Marta Alvarado RN Service: ? Author Type: Registered Nurse Type: ED Notes Filed: 09/14/2022 8:24 PM Note Text: Neal sequeira- asked to be listed as pt emergency contact [phone] Normal [facility] ED NOTE HNO ID: [id number] Author: Marta Alvarado RN Service: Emergency Medicine Author Type: Registered Nurse Type: ED Notes Filed: 09/14/2022 8:15 PM Note Text: Pt unable to provide urine sample at this time. Normal [facility] ED NOTE HNO ID: [id number] Author: Ap Paredes RN Service: ? Author Type: Registered Nurse Type: ED Notes Filed: 09/14/2022 5:31 PM Note Text: Bed: 06-ED Expected date: Expected time: Means of arrival: Comments: trauma Normal [facility] ED NOTE HNO ID: [id number] Author: Ap Paredes RN Service: Emergency Medicine Author Type: Registered Nurse Type: ED Notes Filed: 09/14/2022 5:24 PM Note Text: Blood bank and OR called and notified [facility] ED NOTE HNO ID: [id number] Author: Kate Carrington Service: ? Author Type: ? Type: ED Notes Filed: 09/14/2022 5:07 PM Note Text: Bed: 04-ED-BOOM Expected date: 09/14/22 Expected time: Means of arrival: [facility] Comments: Normal [facility] ED PROV NOTEon 09-14-2022 ED PROV NOTE Normal [facility] Ethanol SerPl-mCncon 022 Ethanol [Mass/Vol] 257 mg/dL High <11 [facility] Comment on above: Order Comment: Cary lujan Type: BLOOD SPECIMENOrdering Facility: [facility] Address: [address] [place] [address] Result Comment: Valu es > 80 mg/dL may indicate intoxication Performed By: #### 5 643-2 ####[facility] LABORATORYCLIA [id number] [address] [place] HIGH SENSITIVITY TROPONIN To n 09-14-2022 HIGH SENSITIVITY JACI 16 ng/L High <12 [facility] Comment on above: Order Comment: Speccy lujan Type: BLOOD SPECIMENOrdering Facility: [facility] Address: [address] [place] [address] Result Comment: When assessing risk for acute [...] day MACE. Performed By: #### H STNT ####[facility] LABORATORYCLIA [id number] [place] [address] [place] HISTORY PHYSICALon 2 HISTORY PHYSICAL Normal [facility] HISTORY PHYSICAL Normal [facility] Hematocrit Auto (Bld) [Volum e fraction]Ordered By: Dr. Arias on 09-14-2022 Hematocrit (Bld) [Volume fraction] 43.1 % 37-47 [facility] INR in Blood by Coagulation assayOrdered By: Dr. Arias on 09-14-2022 INR Coag (Bld) [Relative time] 1.0 {INR} [facility] Laboratory - Chemistry and C hemistry - challengeOrdered By: Dr. Arias on 09-14-2022 ALP [Catalytic activity/Vol] 67 U/L 45-117 [facility] ALT [Catalytic activity/Vol] 73 U/L 13-56 [facility] CO2 [Moles/Vol] 22.0 mmol/L 21.0-32.0 [facility] Globulin (S) [Mass/Vol] 3.8 g/dL 2.2-4.2 [facility] Urea nitrogen/Creatinine [Mass ratio] 21.2 mg/mg 10-20 [facility] Laboratory - CoagulationOrde red By: Dr. Arias on 09-14-2022 aPTT Coag (Bld) [Time] 27.4 s 24.1-36.2 [facility] PT Coag (PPP) [Time] 12.9 s 11.7-14.9 [facility] Laboratory - Hematology and Cell countsOrdered By: Dr. Arias on 09-14-2022 Erythrocyte distribution width (RBC) [Entitic vol] 57.0 fL 35.1-43.9 [facility] Erythrocyte distribution width (RBC) [Ratio] 15.5 % 11.6-14.6 [facility] Immature granulocytes/100 WBC (Bld) 0.200 % 0.0-0.9 [facility] Comment on above: IG% - Immature Granu locytes (promyelocytes, myelocytes and metamyelocytes) > 1% indicates that a LEFT SHIFT is Present. MCH (RBC) [Entitic mass] 34.9 pg 27.0-32.0 [facility] Nucleated RBC/100 WBC (Bld) [Ratio] 0 % 0-5 [facility] Lipase SerPl-cCncon 09-14-20 22 Lipase [Catalytic activity/Vol] 55 U/L Normal 16-61 [facility] Comment on above: Order Comment: Speci men Type: BLOOD SPECIMENOrdering Facility: [facility] Address: [address] [place], [place] [phone] Performed By: #### 3 040-3, 41837-6, 1798-8 ####[facility] LABORATORYCLIA [id number] [place] [id number] [facility] MCHC Auto (RBC) [Mass/Vol]Or dered By: Dr. Arias on 09-14-2022 MCHC (RBC) [Mass/Vol] 35.0 g/dL 32-36 [facility] No Panel InformationOrdered By: Dr. Arias on 09-14-2022 Estimated Creatinine Clearance Calc 42.68 ml/min [facility] Estimated GFR (MDRD) Amer 114 mL/min >60 [facility] Comment on above: GFR Calc Estimated GFR (MDRD) Non-Af Amer 94 mL/min >60 [facility] Comment on above: Non- GFR Calc Ethyl Alcohol Level 340.0 mg/dL [facility] Comment on above: Critical Result(s) C [...] Coag (PPP) [Relative time] {INR} Low 0.9-1.3 [facility] Comment on above: Order Comment: Cary lujan Type: BLOOD SPECIMENOrdering Facility: [facility] Address: [address] [place] [phone] Result Comment: Adele min K Antagonist (VKA) Therapeutic Range: INR 2 to 3 (Target INR of 2.5)Note: For patients treated with VKA drugs, such as warfarin, the [place] [employer] 2012 Guideline recommends [...] Chest 2012, 141:7S-47SNishimura RA, et al. [facility] 2017, 70: 252-289 Performed By: #### 1 4979-9, 26044-3 ####[facility] LABORATORYCLIA [id number] [place] [address] [place] PT Coag (PPP) [Time] 9.8 s Normal 9.7-13.0 [facility] Comment on above: Order Comment: Cary lujan Type: BLOOD SPECIMENOrdering Facility: [facility] Address: [address] [place] [phone] Result Comment: Samp le checked for clot Performed By: #### 1 4979-9, 60945-4 ####[facility] LABORATORYCLIA [id number] [place] [address] [place] Platelets bldOrdered By: Dr. Arias on 09-14-2022 Platelets (Bld) [#/Vol] 146 10*3/uL 150-450 [facility] SARS-CoV-2 RNA Resp Ql CY+p robeon 09-14-2022 SARS-CoV-2 (COVID-19) RNA CY+probe Ql (Resp) COVID 19 RESULT: SARS-CoV-2 (Agent of COVID-19) Not Detected by RT-PCR or equivalent method. This test has been authorized by FDA under an Emergency Use Authorization (EUA). Normal [facility] Comment on above: Performed By: #### 9 4500-6 ####[facility] [facility] LABORATORYCLIA [id number] [place] [address] [place] [facility] STAPH AUREUS PCRon 2 S. aureus and MRSA panel YC+probe (Nose) Abnormal Negative [facility] Comment on above: Order Comment: Speci men Type: SWAB OF INTERNAL NOSEOrdering Facility: [facility] Address: [address] [place], [place] [id number] Result Comment: Posi tive for Staphylococcus aureus by PCR.Positive for MRSA by PCR Performed By: #### S APCR ####[facility] LABORATORYCLIA [id number] [place] [address] [place] Serum or plasma albumin cony urement (mass/volume)Ordered By: Dr. Arias on 09-14-2022 Albumin [Mass/Vol] 3.0 g/dL 3.2-5.0 [facility] Serum or plasma albumin/glob ulin mass ratioOrdered By: Dr. Arias on 09-14-2022 Albumin/Globulin [Mass ratio] 0.8 {ratio} 0.9-2.4 [facility] Serum or plasma calcium cony urement (mass/volume)Ordered By: Dr. Arias on 09-14-2022 Calcium [Mass/Vol] 8.3 mg/dL 8.5-10.1 [facility] Serum or plasma creatinine m easurement (mass/volume)Ordered By: Dr. Arias on 09-14-2022 Creatinine [Mass/Vol] 0.66 mg/dL 0.55-1.02 [facility] Comment on above: The validity of the calculated GFR & GFRAA in patients over 70 years has not been determined. Clinical correlation is essential. Serum or plasma urea nitroge n measurement (mass/volume)Ordered By: Dr. Arias on 09-14-2022 Urea nitrogen [Mass/Vol] 14 mg/dL 7-18 [facility] TYPE + SCREENon 09-14-2022 ABO A Normal [facility] Comment on above: Order Comment: Speci men Type: BLOOD SPECIMENOrdering Facility: [facility] Address: [address] [place] [address] Performed By: #### T SCR ####[facility] BLOOD BANKCLIA [id number] [address] [place] HISTORICAL AB SCR STATUS Negative Normal [facility] Comment on above: Order Comment: Speci men Type: BLOOD SPECIMENOrdering Facility: [facility] Address: [address] [place] [address] Performed By: #### T SCR ####[facility] BLOOD BANKCLIA [id number] [place] [address] [place] Rh Nom (Bld) Positive Normal [facility] Comment on above: Order Comment: Speci men Type: BLOOD SPECIMENOrdering Facility: [facility] Address: [address] [place] [address] Performed By: #### T SCR ####[facility] BLOOD BANKCLIA [id number] [place] [address] [place] TYPE AND SCREEN EXPIRATION 09/17/2022 23:59 Normal [facility] Comment on above: Order Comment: Speci men Type: BLOOD SPECIMENOrdering Facility: [facility] Address: [address] [place] [address] Performed By: #### T SCR ####[facility] BLOOD BANKCLIA [id number] [place] [address] [place] Thin prep Papanicolaou smear with manual screeningOrdered By: Dr. Arias on 09-14-2022 Thin prep Papanicolaou smear with manual screening 153 U/L 15-37 [facility] Comment on above: Moderate Hemolysis, Result may be falsely increased. Thin prep Papanicolaou smear with manual screening 9 5-15 [facility] XR CHEST 1V FRONTALon 2021 XR CHEST 1V FRONTAL Normal [facility] XR PELVIS 1V APon 09-14-2022 XR PELVIS 1V AP Normal [facility] XR SHLDR >/=3V AP/RIGOBERTO AP/OTH R LTon 09-14-2022 XR SHLDR >/=3V AP/RIGOBERTO AP/OTHR LT Normal [facility] aPTT PPPon 09-14-2022 aPTT Coag (PPP) [Time] 24.1 s Normal 23.0-32.4 [facility] Comment on above: Order Comment: Speci men Type: BLOOD SPECIMENOrdering Facility: [facility] Address: [facility] [place] [address] Result Comment: [facility] le checked for clot Performed By: #### 1 [id number], [id number] ####[facility] LABORATORYCLIA [id number] [place] [address] [place] [facility] Absolute lymphocyte counton 04-27-2022 Lymphocytes Auto (Unsp spec) [#/Vol] 1.91 10*3/uL 0.83-4.51 [facility] Work Phone: Basophil percentageon 2021 Basophil percentage 0 SEEN /hpf 0-5 [facility] Work Phone: Basophils/100 WBC (Bld) 1.4 % 0-1 [facility] Work Phone: Bilirubin [Mass/Vol] 0.30 mg/dL 0.20-1.00 [facility] Work Phone: Comment on above: For patients on eltr ombopag therapy, use of Dimension [place] TBIL is not recommended. Chloride [Moles/Vol] 100 mmol/L 98-107 [facility] Work Phone: Eosinophils/100 WBC (Bld) 0.6 % 0-5 [facility] Work Phone: Glucose [Mass/Vol] 142 mg/dL 74-106 [facility] Work Phone: Comment on above: Fasting Glucose resu lt greater than or equal to 126 mg/dL suggests DIABETES MELLITUS per A.D.A. criteria. Lactate [Moles/Vol] 6.5 mmol/L 0.4-2.0 [facility] Work Phone: Comment on above: Critical Result(s) C alled at: 10:43:22 04/27/2022 by: Diane Montez to Lonny. Results read back by same. Neutrophils (Bld) [#/Vol] 4.8 10*3/uL 2.0-7.7 [facility] Work Phone: Neutrophils/100 WBC (Bld) 60.5 % 47-70 [facility] Work Phone: Potassium [Moles/Vol] 3.6 mmol/L 3.5-5.1 [facility] Work Phone: Protein [Mass/Vol] 7.6 g/dL 6.4-8.2 [facility] Work Phone: [phone] Sodium [Moles/Vol] 140 mmol/L 136-145 [facility] Work Phone: [phone] WBC (Bld) [#/Vol] 7.9 10*3/uL 4.4-11.0 [facility] Work Phone: Bilirubin Test strip Ql (U)o n 04-27-2022 Bilirubin Ql (U) Negative Negative [facility] Work Phone: Blood erythrocytes count (nu mber/volume)on 04-27-2022 RBC (Bld) [#/Vol] 4.46 10*6/uL 4.2-5.4 [facility] Work Phone: Blood hemoglobin measurement (mass/volume)on 04-27-2022 Hemoglobin (Bld) [Mass/Vol] 14.5 g/dL 12.0-15.0 [facility] Work Phone: Blood lymphocytes/100 leukoc yteson 04-27-2022 Lymphocytes/100 WBC (Bld) 24.1 % 19-41 [facility] Work Phone: Blood monocytes/100 leukocyt eson 04-27-2022 Monocytes/100 WBC (Bld) 12.6 % 0-10 [facility] Work Phone: [phone] Blood platelet mean volumeon 04-27-2022 Platelet mean volume (Bld) [Entitic vol] 10.0 fL 6.2-12.0 [facility] Work Phone: [phone] Determination of erythrocyte mean corpuscular volume (MCV)on 04-27-2022 MCV (RBC) [Entitic vol] 98.7 fL 81-99 [facility] Work Phone: [phone] Hematocrit Auto (Bld) [Volum e fraction]on 04-27-2022 Hematocrit (Bld) [Volume fraction] 44.0 % 37-47 [facility] Work Phone: [phone] Ketones Test strip Ql (U)on 04-27-2022 Ketones Ql (U) 15 mg/dl Negative [facility] Work Phone: [phone] Laboratory - Chemistry and C hemistry - challengeon 04-27-2022 ALP [Catalytic activity/Vol] 75 U/L 45-117 [facility] Work Phone: [phone] ALT [Catalytic activity/Vol] 44 U/L 13-56 [facility] Work Phone: [phone] CO2 [Moles/Vol] 20.0 mmol/L 21.0-32.0 [facility] Work Phone: [phone] Globulin (S) [Mass/Vol] 3.9 g/dL 2.2-4.2 [facility] Work Phone: [phone] Urea nitrogen/Creatinine [Mass ratio] 29.7 mg/mg 10-20 [facility] Work Phone: [phone] Laboratory - Drug toxicology on 04-27-2022 Amphetamines Ql (U) Negative <1000 ng/mL [facility] Work Phone: [phone] Benzodiazepines Ql (U) Negative < 200 ng/mL [facility] Work Phone: [phone] Cannabinoids Screen Ql (U) Negative < 50 ng/mL [facility] Work Phone: [phone] Cocaine Ql (U) Negative < 300 ng/mL [facility] Work Phone: [phone] Opiates Ql (U) Negative < 300 ng/mL [facility] Work Phone: [phone] Laboratory - Hematology and Cell countson 04-27-2022 Erythrocyte distribution width (RBC) [Entitic vol] 55.6 fL 35.1-43.9 [facility] Work Phone: [phone] Erythrocyte distribution width (RBC) [Ratio] 15.3 % 11.6-14.6 [facility] Work Phone: [phone] Immature granulocytes/100 WBC (Bld) 0.800 % 0.0-0.9 [facility] Work Phone: [phone] Comment on above: IG% - Immature Granu locytes (promyelocytes, myelocytes and metamyelocytes) > 1% indicates that a LEFT SHIFT is Present. MCH (RBC) [Entitic mass] 32.5 pg 27.0-32.0 [facility] Work Phone: [phone] Nucleated RBC/100 WBC (Bld) [Ratio] 0 % 0-5 [facility] Work Phone: [phone] MCHC Auto (RBC) [Mass/Vol]on 04-27-2022 MCHC (RBC) [Mass/Vol] 33.0 g/dL 32-36 [facility] Work Phone: [phone] Mucus LM Ql (Urine sed)on Mucus Ql (Urine sed) 0 SEEN /hpf [facility] Work Phone: [phone] Nitrite Test strip Ql (U)on 04-27-2022 Nitrite Ql (U) Negative Negative [facility] Work Phone: [phone] Panel Informationon 04-27 MDMA (Ecstasy) Screen Negative < 500 ng/mL [facility] Work Phone: [phone] Urine Barbiturates Screen Negative < 200 ng/mL [facility] Work Phone: [phone] Urine Drug Screen Comment [facility] Work Phone: [phone] Comment on above: CONFIRMATORY TESTING FOR ALL [...] Urine Methadone Screen Negative < 300 ng/mL [facility] Work Phone: [phone] Estimated Creatinine Clearance Calc 50.91 ml/min [facility] Work Phone: [phone] Estimated GFR (MDRD) Amer 105 mL/min >60 [facility] Work Phone: [phone] Comment on above: GFR Calc Estimated GFR (MDRD) Non-Af Amer 87 mL/min >60 [facility] Work Phone: [phone] Comment on above: Non- GFR Calc Ethyl Alcohol Level 11.0 mg/dL [facility] Work Phone: [phone] Comment on above: The serum:whole bloo d ethanol ratio is approximately 1.14and varies slightly with hematocrit. Medical Alcohol reference interval and critical value innon-tolerant individuals; 50 - 100 Impairment 100 Intoxication 100 - 250 Severe Poisoning 250 - 400 Deep/possible fatal coma Troponin I High Sensitivity 7 pg/mL 3.0-54.0 [facility] Work Phone: [phone] Comment on above: Please Note: [place] t Units and Gender Specific Reference Ranges. For more information see Policy Stat Procedure [place] High Sensitivity Troponin (TNIH) and attachments. Platelets bldon 04-27-2022 Platelets (Bld) [#/Vol] 164 10*3/uL 150-450 [facility] Work Phone: [phone] Protein Test strip Ql (U)on 04-27-2022 Protein Ql (U) 30 mg/dl Negative [facility] Work Phone: [phone] Serum or plasma albumin cony urement (mass/volume)on 04-27-2022 Albumin [Mass/Vol] 3.7 g/dL 3.2-5.0 [facility] Work Phone: [phone] Serum or plasma albumin/glob ulin mass ratioon 04-27-2022 Albumin/Globulin [Mass ratio] 0.9 {ratio} 0.9-2.4 [facility] Work Phone: [phone] Serum or plasma calcium cony urement (mass/volume)on 04-27-2022 Calcium [Mass/Vol] 10.6 mg/dL 8.5-10.1 [facility] Work Phone: [phone] Serum or plasma creatinine m easurement (mass/volume)on 04-27-2022 Creatinine [Mass/Vol] 0.71 mg/dL 0.55-1.02 [facility] Work Phone: [phone] Comment on above: The validity of the calculated GFR & GFRAA in patients over 70 years has not been determined. Clinical correlation is essential. Serum or plasma prolactin me asurement (mass/volume)on 04-27-2022 Prolactin [Mass/Vol] 159.0 ng/mL [facility] Work Phone: Comment on above: NORMAL REFERENCE RAN GES FEMALE NON- 2.2 - 30.3 ng/mL 8.1 - 347.6 ng/mL POST-MENOPAUSAL 0.7 - 31.5 ng/mL MALE 2.5 - 17.4 ng/mL Serum or plasma urea nitroge n measurement (mass/volume)on 04-27-2022 Urea nitrogen [Mass/Vol] 21 mg/dL 7-18 [facility] Work Phone: [phone] Squamous epithelial cells de tection in urine sediment by light microscopyon 04-27-2022 Epithelial cells.squamous LM Ql (Urine sed) 0-5 SEEN /hpf 5-10 [facility] Work Phone: [phone] Thin prep Papanicolaou smear with manual screeningon 04-27-2022 Thin prep Papanicolaou smear with manual screening 62 U/L 15-37 [facility] Work Phone: [phone] Thin prep Papanicolaou smear with manual screening 20 -15 [facility] Work Phone: [phone] Urine blood detectionon 04-13 RBC Ql (U) 10 /ul Negative [facility] Work Phone: RBC Ql (U) 0-5 SEEN /hpf 0-5 [facility] Work Phone: Urine clarityon 04-27-2022 Clarity (U) Clear Clear [facility] Work Phone: Urine color determinationon 04-27-2022 Color (U) Yellow Yellow [facility] Work Phone: Urine glucose detectionon Glucose Ql (U) Normal mg/dl Normal [facility] Work Phone: Urine leukocyte esterase det ection by dipstickon 04-27-2022 Leukocyte esterase Test strip Ql (U) Negative Negative [facility] Work Phone: Urine pHon 04-27-2022 pH (U) 6.5 [pH] 5.0 - 8.0 [facility] Work Phone: Urine phencyclidine (PCP) de tectionon 04-27-2022 Phencyclidine Ql (U) Negative < 25 ng/mL [facility] Work Phone: Urine sediment bacteria coun t by microscopy (number/high power field)on 04-27-2022 Bacteria LM.HPF (Urine sed) [#/Area] 0 /[HPF] None Seen [facility] Work Phone: Urine specific gravity measu rementon 04-27-2022 Specific gravity (U) [Rel density] 1.020 1.002-1.030 [facility] Work Phone: Urobilinogen Auto test strip Ql (U)on 04-27-2022 Urobilinogen Ql (U) Normal mg/dl Normal [facility] Work Phone: Absolute lymphocyte counton 02-06-2022 Lymphocytes Auto (Unsp spec) [#/Vol] 1.24 10*3/uL 0.83-4.51 [facility] Work Phone: Amorphous sediment detection in urine sediment by light microscopyon 02-06-2022 Amorphous sediment LM Ql (Urine sed) 1+ [facility] Work Phone: Basophil percentageon 2021 Basophil percentage 0-5 SEEN /hpf 0-5 [facility] Work Phone: Basophils/100 WBC (Bld) 0.8 % 0-1 [facility] Work Phone: Bilirubin [Mass/Vol] 1.10 mg/dL 0.20-1.00 [facility] Work Phone: Comment on above: For patients on eltr ombopag therapy, use of Dimension [place] TBIL is not recommended. Chloride [Moles/Vol] 102 mmol/L 98-107 [facility] Work Phone: Eosinophils/100 WBC (Bld) 1.2 % 0-5 [facility] Work Phone: Glucose [Mass/Vol] 76 mg/dL 74-106 [facility] Work Phone: Neutrophils (Bld) [#/Vol] 3.8 10*3/uL 2.0-7.7 [facility] Work Phone: Neutrophils/100 WBC (Bld) 64.7 % 47-70 [facility] Work Phone: Potassium [Moles/Vol] 3.6 mmol/L 3.5-5.1 [facility] Work Phone: Protein [Mass/Vol] 6.0 g/dL 6.4-8.2 [facility] Work Phone: Sodium [Moles/Vol] 134 mmol/L 136-145 [facility] Work Phone: WBC (Bld) [#/Vol] 5.9 10*3/uL 4.4-11.0 [facility] Work Phone: Bilirubin Test strip Ql (U)o n 02-06-2022 Bilirubin Ql (U) 1 mg/dL Negative [facility] Work Phone: Comment on above: COLOR OF URINE MAY A FFECT DIPSTICK RESULTS. Blood erythrocytes count (nu mber/volume)on 02-06-2022 RBC (Bld) [#/Vol] 3.67 10*6/uL 4.2-5.4 [facility] Work Phone: [phone] Blood hemoglobin measurement (mass/volume)on 02-06-2022 Hemoglobin (Bld) [Mass/Vol] 11.9 g/dL 12.0-15.0 [facility] Work Phone: [phone] Blood lymphocytes/100 leukoc yteson 02-06-2022 Lymphocytes/100 WBC (Bld) 21.0 % 19-41 [facility] Work Phone: [phone] Blood monocytes/100 leukocyt eson 02-06-2022 Monocytes/100 WBC (Bld) 12.0 % 0-10 [facility] Work Phone: [phone] Blood platelet mean volumeon 02-06-2022 Platelet mean volume (Bld) [Entitic vol] 9.3 fL 6.2-12.0 [facility] Work Phone: [phone] Determination of erythrocyte mean corpuscular volume (MCV)on 02-06-2022 MCV (RBC) [Entitic vol] 96.2 fL 81-99 [facility] Work Phone: [phone] Hematocrit Auto (Bld) [Volum e fraction]on 02-06-2022 Hematocrit (Bld) [Volume fraction] 35.3 % 37-47 [facility] Work Phone: [phone] Ketones Test strip Ql (U)on 02-06-2022 Ketones Ql (U) 50 mg/dl Negative [facility] Work Phone: [phone] Laboratory - Chemistry and C hemistry - challengeon 02-06-2022 ALP [Catalytic activity/Vol] 75 U/L 45-117 [facility] Work Phone: [phone] ALT [Catalytic activity/Vol] 20 U/L 13-56 [facility] Work Phone: [phone] CO2 [Moles/Vol] 24.0 mmol/L 21.0-32.0 [facility] Work Phone: [phone] Free T4 [Mass/Vol] 0.78 ng/dL 0.76-1.46 [facility] Work Phone: Globulin (S) [Mass/Vol] 3.2 g/dL 2.2-4.2 [facility] Work Phone: [phone] Urea nitrogen/Creatinine [Mass ratio] 29.7 mg/mg 10-20 [facility] Work Phone: [phone] Laboratory - Drug toxicology on 02-06-2022 Amphetamines Ql (U) Negative <1000 ng/mL [facility] Work Phone: [phone] Benzodiazepines Ql (U) Negative < 200 ng/mL [facility] Work Phone: [phone] Cannabinoids Screen Ql (U) Negative < 50 ng/mL [facility] Work Phone: [phone] Cocaine Ql (U) Negative < 300 ng/mL [facility] Work Phone: [phone] Opiates Ql (U) Negative < 300 ng/mL [facility] Work Phone: [phone] Laboratory - Hematology and Cell countson 02-06-2022 Erythrocyte distribution width (RBC) [Entitic vol] 56.1 fL 35.1-43.9 [facility] Work Phone: [phone] Erythrocyte distribution width (RBC) [Ratio] 15.8 % 11.6-14.6 [facility] Work Phone: Immature granulocytes/100 WBC (Bld) 0.300 % 0.0-0.9 [facility] Work Phone: [phone] Comment on above: IG% - Immature Granu locytes (promyelocytes, myelocytes and metamyelocytes) > 1% indicates that a LEFT SHIFT is Present. MCH (RBC) [Entitic mass] 32.4 pg 27.0-32.0 [facility] Work Phone: Nucleated RBC/100 WBC (Bld) [Ratio] 0 % 0-5 [facility] Work Phone: [phone] MCHC Auto (RBC) [Mass/Vol]on 02-06-2022 MCHC (RBC) [Mass/Vol] 33.7 g/dL 32-36 [facility] Work Phone: Mucus LM Ql (Urine sed)on Mucus Ql (Urine sed) 0 SEEN /hpf [facility] Work Phone: [phone] Nitrite Test strip Ql (U)on 02-06-2022 Nitrite Ql (U) Negative Negative [facility] Work Phone: [phone] Panel Informationon 02-06 MDMA (Ecstasy) Screen Positive < 500 ng/mL [facility] Work Phone: [phone] Urine Barbiturates Screen Positive < 200 ng/mL [facility] Work Phone: [phone] Urine Drug Screen Comment [facility] Work Phone: [phone] Comment on above: CONFIRMATORY TESTING FOR ALL [...] Urine Methadone Screen Negative < 300 ng/mL [facility] Work Phone: [phone] Estimated Creatinine Clearance Calc 45.20 ml/min [facility] Work Phone: [phone] Estimated GFR (MDRD) Amer 144 mL/min >60 [facility] Work Phone: [phone] Comment on above: GFR Calc Estimated GFR (MDRD) Non-Af Amer 119 mL/min >60 [facility] Work Phone: [phone] Comment on above: Non- GFR Calc Platelets bldon 02-06-2022 Platelets (Bld) [#/Vol] 124 10*3/uL 150-450 [facility] Work Phone: [phone] Protein Test strip Ql (U)on 02-06-2022 Protein Ql (U) Negative Negative [facility] Work Phone: Serum or plasma albumin cony urement (mass/volume)on 02-06-2022 Albumin [Mass/Vol] 2.8 g/dL 3.2-5.0 [facility] Work Phone: [phone] Serum or plasma albumin/glob ulin mass ratioon 02-06-2022 Albumin/Globulin [Mass ratio] 0.9 {ratio} 0.9-2.4 [facility] Work Phone: [phone] Serum or plasma calcium cony urement (mass/volume)on 02-06-2022 Calcium [Mass/Vol] 8.7 mg/dL 8.5-10.1 [facility] Work Phone: Serum or plasma creatinine m easurement (mass/volume)on 02-06-2022 Creatinine [Mass/Vol] 0.54 mg/dL 0.55-1.02 [facility] Work Phone: Comment on above: The validity of the calculated GFR & GFRAA in patients over 70 years has not been determined. Clinical correlation is essential. Serum or plasma urea nitroge n measurement (mass/volume)on 02-06-2022 Urea nitrogen [Mass/Vol] 16 mg/dL 7-18 [facility] Work Phone: [phone] Squamous epithelial cells de tection in urine sediment by light microscopyon 02-06-2022 Epithelial cells.squamous LM Ql (Urine sed) 0 SEEN /hpf 5-10 [facility] Work Phone: [phone] Thin prep Papanicolaou smear with manual screeningon 02-06-2022 Thin prep Papanicolaou smear with manual screening 27 U/L 15-37 [facility] Work Phone: [phone] Thin prep Papanicolaou smear with manual screening 8 5-15 [facility] Work Phone: [phone] Urine blood detectionon 01-13 RBC Ql (U) Negative Negative [facility] Work Phone: [phone] RBC Ql (U) 0 SEEN /hpf 0-5 [facility] Work Phone: [phone] Urine clarityon 02-06-2022 Clarity (U) Clear Clear [facility] Work Phone: Urine color determinationon 02-06-2022 Color (U) Yellow Yellow [facility] Work Phone: Urine glucose detectionon Glucose Ql (U) Normal mg/dl Normal [facility] Work Phone: Urine leukocyte esterase det ection by dipstickon 02-06-2022 Leukocyte esterase Test strip Ql (U) 25 /ul Negative [facility] Work Phone: Urine pHon 02-06-2022 pH (U) 7.0 [pH] 5.0 - 8.0 [facility] Work Phone: Urine phencyclidine (PCP) de tectionon 02-06-2022 Phencyclidine Ql (U) Negative < 25 ng/mL [facility] Work Phone: Urine sediment bacteria coun t by microscopy (number/high power field)on 02-06-2022 Bacteria LM.HPF (Urine sed) [#/Area] 1 /[HPF] None Seen [facility] Work Phone: Urine specific gravity measu rementon 02-06-2022 Specific gravity (U) [Rel density] 1.010 1.002-1.030 [facility] Work Phone: Urobilinogen Auto test strip Ql (U)on 02-06-2022 Urobilinogen Ql (U) 4 mg/dl Normal [facility] Work Phone: Basophil percentageon 2021 Basophil percentage 3.1 mg/dL 2.5-4.9 [facility] Work Phone: INR in Blood by Coagulation assayon 02-05-2022 INR Coag (Bld) [Relative time] 1.0 {INR} [facility] Work Phone: Laboratory - Chemistry and C hemistry - challengeon 02-05-2022 Magnesium [Mass/Vol] 1.6 mg/dL 1.6-2.6 [facility] Work Phone: Laboratory - Coagulationon 0 02-05-2022 PT Coag (PPP) [Time] 12.6 s 11.7-14.9 [facility] Work Phone: No Panel Informationon 02-05 Ethyl Alcohol Level < 3.0 mg/dL [facility] Work Phone: Comment on above: The serum:whole bloo d ethanol ratio is approximately 1.14and varies slightly with hematocrit. Medical Alcohol reference interval and critical value innon-tolerant individuals; 50 - 100 Impairment 100 Intoxication 100 - 250 Severe Poisoning 250 - 400 Deep/possible fatal coma Thyroid Stimulating Hormone (TSH) 4.04 uIU/mL 0.358-3.74 [facility] Work Phone: Troponin I High Sensitivity 5 pg/mL 3.0-54.0 [facility] Work Phone: Comment on above: Please Note: [place] t Units and Gender Specific Reference Ranges. For more information see Policy Stat Procedure [place] High Sensitivity Troponin (TNIH) and attachments. Basic metabolic 2000 panelOr dered By: Blaise Aponte on 03-15-2021 Anion gap [Moles/Vol] 15 mmol/L 10 - 20 mmol/L [facility] Calcium [Mass/Vol] 9.2 mg/dL 8.4 - 10. 2 mg/dL [facility] Chloride [Moles/Vol] 108 mmol/L 98 - 108 mmol/L [facility] Creatinine [Mass/Vol] 0.48 mg/dL Low 0.60 - 1.20 [facility] GFR/1.73 sq M.predicted CKD-EPI (S/P/Bld) [Vol rate/Area] 100 >=60 mL/min/1.73 m2 [facility] Glucose [Mass/Vol] 78 mg/dL 65 - 99 mg/dL [facility] H[facility]3 [Moles/Vol] 20 mmol/L Low 21 - 32 mmol/L [facility] Interpretation and review of laboratory results Abnormal [facility] Potassium [Moles/Vol] 3.9 mmol/L 3.5 - 5.1 mmol/L [facility] Sodium [Moles/Vol] 139 mmol/L 135 - 145 mmol/L [facility] Urea nitrogen [Mass/Vol] 17 mg/dL 8 - 25 mg/dL [facility] Urea nitrogen/Creatinine [Mass ratio] 35.4 mg/mg High [facility] The eGFR should be used for monitoring renal function only and not for medication dosing. [facility] Basic metabolic 2000 panelOr dered By: Blaise Aponte on 03-14-2021 Anion gap [Moles/Vol] 13 mmol/L 10 - 20 mmol/L [facility] Calcium [Mass/Vol] 9.3 mg/dL 8.4 - 10. 2 mg/dL [facility] Chloride [Moles/Vol] 107 mmol/L 98 - 108 mmol/L [facility] Creatinine [Mass/Vol] 0.64 mg/dL 0.60 - 1.20 [facility] GFR/1.73 sq M.predicted CKD-EPI (S/P/Bld) [Vol rate/Area] 91 >=60 mL/min/1.73 m2 [facility] Glucose [Mass/Vol] 89 mg/dL 65 - 99 mg/dL [facility] HCO3 [Moles/Vol] 22 mmol/L 21 - 32 mmol/L [facility] Interpretation and review of laboratory results Abnormal [facility] Potassium [Moles/Vol] 4.8 mmol/L 3.5 - 5.1 mmol/L [facility] Comment on above: Slightly Hemolyzed Sodium [Moles/Vol] 137 mmol/L 135 - 145 mmol/L [facility] Urea nitrogen [Mass/Vol] 18 mg/dL 8 - 25 mg/dL [facility] Urea nitrogen/Creatinine [Mass ratio] 28.1 mg/mg High [facility] The eGFR should be used for monitoring renal function only and not for medication dosing. [facility] CBC WITH AUTO DIFFERENTIALOr dered By: Blaise Aponte on 03-14-2021 Basophils (Bld) [#/Vol] 0.07 10*3/uL [facility] Basophils/100 WBC (Bld) 1.2 % [facility] Eosinophils (Bld) [#/Vol] 0.08 10*3/uL [facility] Eosinophils/100 WBC (Bld) 1.4 % [facility] Erythrocyte distribution width (RBC) [Entitic vol] 14.0 % 11.6 - 14.8 % [facility] Hematocrit (Bld) [Volume fraction] 41.9 % 36.0 - 46.0 % [facility] Hemoglobin (Bld) [Mass/Vol] 13.8 g/dL 12.0 - 16.0 g/dL [facility] Immature granulocytes (Bld) [#/Vol] 0.02 10*3/uL [facility] Immature granulocytes/100 WBC (Bld) 0.30 % [facility] Comment on above: The IG parameter is the percentage of metamyelocytes, myelocytes and promyelocytes. An immature granulocyte count (IG) of 1% or more suggests the possibility of infection, an IG count of 3% is very likely related to an infection. Interpretation and review of laboratory results Abnormal [facility] Lymphocytes (Bld) [#/Vol] 1.63 10*3/uL [facility] Lymphocytes/100 WBC (Bld) 28.4 % [facility] MCH (RBC) [Entitic mass] 32.8 pg 26.0 - 34.0 pg [facility] MCHC (RBC) [Mass/Vol] 32.9 g/dL 31.0 - 37.0 g/dL [facility] MCV (RBC) [Entitic vol] 99.5 fL 80.0 - 100.0 fL [facility] Monocytes (Bld) [#/Vol] 0.97 10*3/uL High [facility] Monocytes/100 WBC (Bld) 16.9 % [facility] Neutrophils (Bld) [#/Vol] 2.97 10*3/uL [facility] Neutrophils/100 WBC (Bld) 51.8 % [facility] Nucleated RBC (Bld) [#/Vol] 0.00 10*3/uL [facility] Nucleated RBC/100 WBC (Bld) [Ratio] 0.0 % [facility] Platelet mean volume (Bld) [Entitic vol] 10.6 fL 9.4 - 12.4 fL [facility] Platelets (Bld) [#/Vol] 171 10*3/uL [facility] RBC (Bld) [#/Vol] 4.21 10*6/uL [facility] WBC (Bld) [#/Vol] 5.74 10*3/uL [facility] ECG 12-LEADOrdered By: Vy Basurto on 03-14-2021 Atrial Rate 81 BPM [facility] P Burson 32 degrees [facility] P-R Interval 132 ms [facility] Q-T Interval 376 ms [facility] QRS Duration 86 ms [facility] QTC Calculation (Bezet) 436 ms [facility] R Burson -25 degrees [facility] T Burson 33 degrees [facility] Ventricular Rate 81 BPM [facility] Normal sinus rhythm Normal ECG Confirmed by LELAND MAYA MD ([id number]) on 03/14/2021 2:38:28 PM [facility] Acetaminophen LevelOrdered B y: Shin Bloom on 03-11-2021 Acetaminophen [Mass/Vol] ug/mL [facility] Acetaminophen [Mass/Vol]Orde red By: Shin Bloom on 03-11-2021 Interpretation and review of laboratory results Normal [facility] Alcohol, MedicalOrdered By: Shin Bloom on 03-11-2021 Ethanol [Mass/Vol] mg/dL <10.0 mg/dL [facility] ealt Comment on above: Alcohol cutoff: <10. 00 mg/dL = None Detected Basic metabolic 2000 panelOr dered By: Shin Bloom on 03-11-2021 Anion gap [Moles/Vol] 11 mmol/L 10 - 20 mmol/L [facility] Calcium [Mass/Vol] 9.2 mg/dL 8.4 - 10. 2 mg/dL [facility] Chloride [Moles/Vol] 106 mmol/L 98 - 108 mmol/L [facility] Creatinine [Mass/Vol] 0.44 mg/dL Low 0.60 - 1.20 [facility] GFR/1.73 sq M.predicted CKD-EPI (S/P/Bld) [Vol rate/Area] 103 >=60 mL/min/1.73 m2 [facility] GFR/1.73 sq M.predicted CKD-EPI (S/P/Bld) [Vol rate/Area] 119 >=60 mL/min/1.73 m2 [facility] Glucose [Mass/Vol] 88 mg/dL 65 - 99 mg/dL [facility] HCO3 [Moles/Vol] 24 mmol/L 21 - 32 mmol/L [facility] Interpretation and review of laboratory results Abnormal [facility] Potassium [Moles/Vol] 3.9 mmol/L 3.5 - 5.1 mmol/L [facility] Sodium [Moles/Vol] 137 mmol/L 135 - 145 mmol/L [facility] Urea nitrogen [Mass/Vol] 15 mg/dL 8 - 25 mg/dL [facility] Urea nitrogen/Creatinine [Mass ratio] 34.1 mg/mg High [facility] The eGFR should be used for monitoring renal function only and not for medication dosing. [facility] CBC WITH AUTO DIFFERENTIALOr dered By: Shin Bloom on 03-11-2021 Basophils (Bld) [#/Vol] 0.04 10*3/uL [facility] Basophils/100 WBC (Bld) 0.7 % [facility] Eosinophils (Bld) [#/Vol] 0.07 10*3/uL [facility] Eosinophils/100 WBC (Bld) 1.2 % [facility] Erythrocyte distribution width (RBC) [Entitic vol] 13.7 % 11.6 - 14.8 % [facility] Hematocrit (Bld) [Volume fraction] 37.7 % 36.0 - 46.0 % [facility] Hemoglobin (Bld) [Mass/Vol] 12.4 g/dL 12.0 - 16.0 g/dL [facility] Immature granulocytes (Bld) [#/Vol] 0.01 10*3/uL [facility] Immature granulocytes/100 WBC (Bld) 0.20 % [facility] Comment on above: The IG parameter is the percentage of metamyelocytes, myelocytes and promyelocytes. An immature granulocyte count (IG) of 1% or more suggests the possibility of infection, an IG count of 3% is very likely related to an infection. Interpretation and review of laboratory results Abnormal [facility] Lymphocytes (Bld) [#/Vol] 1.36 10*3/uL [facility] Lymphocytes/100 WBC (Bld) 23.1 % [facility] MCH (RBC) [Entitic mass] 32.9 pg 26.0 - 34.0 pg [facility] MCHC (RBC) [Mass/Vol] 32.9 g/dL 31.0 - 37.0 g/dL [facility] MCV (RBC) [Entitic vol] 100.0 fL 80.0 - 100.0 fL [facility] Monocytes (Bld) [#/Vol] 0.61 10*3/uL [facility] Monocytes/100 WBC (Bld) 10.4 % [facility] Neutrophils (Bld) [#/Vol] 3.79 10*3/uL [facility] Neutrophils/100 WBC (Bld) 64.4 % [facility] Nucleated RBC (Bld) [#/Vol] 0.00 10*3/uL [facility] Nucleated RBC/100 WBC (Bld) [Ratio] 0.0 % [facility] Platelet mean volume (Bld) [Entitic vol] 10.5 fL 9.4 - 12.4 fL [facility] Platelets (Bld) [#/Vol] 145 10*3/uL [facility] RBC (Bld) [#/Vol] 3.77 10*6/uL [facility] WBC (Bld) [#/Vol] 5.88 10*3/uL [facility] COVID-19/INFLUENZA A,B MOLEC ULARon 03-11-2021 SARS-CoV-2 (COVID-19) Ab IA Ql SARS-COV-2 (ALEJA): Not Detected INFLUENZA A (ALEJA): Not Detected INFLUENZA B (ALEJA): Not Detected Normal Not Detected [facility] Comment on above: Order Comment: This test [...] at the following links: For Healthcare Providers: https://www.fda.gov/media/097896/download For Patients: https://www.fda.gov/media/285882/download Performed By: #### L [id number] #### [facility] [address] [place] [address] Joe Mcpherson M.D. [id number] COVID-19/Influenza A,B Molec ularOrdered By: Shin Bloom on 03-11-2021 SARS-CoV-2 (COVID-19) RNA CY+probe Ql (Resp) Not detected Not Detected [facility] CT HEAD OR BRAIN WITHOUT CON [...] March 11, 2021 2:14:13 AM EDT Normal [facility] Comment on above: Order Comment: Injur y/Trauma or Illness?:Illness/Other How long have you had these symptoms (acute/chronic)?:Acute Reason for exam?:ams Type of Exam?:Initial Additional signs and symptoms?: CT HEAD OR BRAIN WITHOUT CON TRASTOrdered By: Shin Bloom on 03-11-2021 1. No acute intracranial abnormality. Brain atrophy is present, advanced for age. Workstation ID: [id number] [facility] EXAMINATION: CT OF THE BRAIN. HISTORY: [...] the subcortical white matter. Dense carotid calcifications. [facility] Interface, Rad In Fu ji Speechq [...] present, advanced for age. Workstation ID: [id number] [facility] DRUGS OF ABUSE SCREEN, URINE Ordered By: Shin Bloom on 03-11-2021 Amphetamines Ql (U) Not detected None Detected [facility] Comment on above: Urine Amphetamine Cu toff: < 1000 ng/mL = None Detected Barbiturates Screen Ql (U) Positive Abnormal None Detected [facility] Comment on above: Urine Barbiturates C utoff: < 200 ng/mL = None Detected Benzodiazepines Ql (U) Not detected None Detected [facility] Comment on above: Urine Benzodiazepine Cutoff: < 200 ng/mL = None Detected Buprenorphine Ql (U) Not detected None Detected [facility] Comment on above: Urine Buprenorphine Cutoff: < 5 ng/mL = None Detected Cannabinoids Screen Ql (U) Not detected None Detected [facility] Comment on above: Urine Cannabinoids C utoff: < 50 ng/mL = None Detected Cocaine Ql (U) Not detected None Detected [facility] ealt Comment on above: Urine Cocaine Cutoff : < 300 ng/mL = None Detected fentaNYL+Norfentanyl Screen Ql (U) Not detected None Detected [facility] Comment on above: Urine Fentanyl Cutof f: < 1 ng/mL = None Detected Interpretation and review of laboratory results Abnormal [facility] Methadone Screen Ql (U) Not detected None Detected [facility] Comment on above: Urine Methadone Cuto ff: < 300 ng/mL = None Detected Opiates Screen Ql (U) Not detected None Detecte d [facility] Comment on above: Urine Opiates Cutoff [...] by calling the lab within 2 weeks. [facility] Hepatic function 2000 panelO rdered By: Shin Bloom on 03-11-2021 Albumin [Mass/Vol] 3.6 g/dL 3.2 - 5.2 g/dL [facility] ALP [Catalytic activity/Vol] 86 U/L 40 - 150 U/L [facility] ALT [Catalytic activity/Vol] 6 U/L 0 - 40 U/L [facility] AST [Catalytic activity/Vol] 14 U/L 0 - 45 U/L [facility] Bilirubin [Mass/Vol] 0.4 mg/dL 0.0 - 1.3 mg/dL [facility] Bilirubin.conjugated [Mass/Vol] 0.1 mg/dL 0.0 - 0.4 mg/dL [facility] Protein [Mass/Vol] 5.8 g/dL Low 6.0 - 8.0 g/dL [facility] Light Blue TopOrdered By: Julia Bloom on 03-11-2021 Extra Tube Hold for add-ons. [facility] Comment on above: Auto resulted. [facility] Magnesium LevelOrdered By: Tarsha Basurto on 03-11-2021 Magnesium [Mass/Vol] 1.7 mg/dL 1.6 - 2.4 mg/dL [facility] No Panel InformationOrdered By: Norah Basurto on 03-11-2021 Interpretation and review of laboratory results Normal [facility] No Panel InformationOrdered By: Shin Bloom on 03-11-2021 Extra Tube Hold for add-ons. [facility] Comment on above: Auto resulted. [facility] Interpretation and review of laboratory results Normal [facility] Interpretation and review of laboratory results Abnormal [facility] DRUG SCREEN, BLOODOrdere d By: Sheila Freedman on 03-11-2021 Additional Drugs: Not detected [facility] Drugs Detected: Lorazepam Trazodone None Detected [facility] Test performed by: [facility] [address] [place] [id number] [facility] OsmolalityOrdered By: Norah Basurto on 03-11-2021 Osmolality [Osmolality] 287 mosm/kg [facility] Osmolality [Osmolality]Order ed By: Norah Basurto on 03-11-2021 Interpretation and review of laboratory results Normal [facility] PhosphorusOrdered By: Norah Basurto on 03-11-2021 Phosphate [Mass/Vol] 2.8 mg/dL 2.8 - 4.1 mg/dL [facility] [place] TopOrdered By: Shin Bloom on 03-11-2021 [facility] SARS-CoV-2 (COVID-19) RNA NA A+probe Ql (Resp)Ordered By: Shin Bloom on 03-11-2021 Influenza A Not detected Not Detected [facility] Influenza B Not detected Not Detected [facility] Interpretation and review of laboratory results Normal [facility] This test was performed under the [...] at the following links: For Healthcare Providers: https://www.[facility].gov/sd caio/248150/download For Patients: https://www.fda.gov/sd caio/694432/download [facility] Salicylate LevelOrdered By: Shin Bloom on 03-11-2021 Salicylates [Mass/Vol] mg/dL Low 10.0 - 20.0 mg/dL [facility] TSH DL <= 0.005 mIU/L QnOrde red By: Shin Bloom on 03-11-2021 TSH Qn 1.59 m[IU]/L [facility] URINALYSISOrdered By: Mitch Bloom on 03-11-2021 Bacteria Auto Ql (U) Many Abnormal None Seen /hpf [facility] Clarity Refractometry automated (U) Cloudy Abnormal Clear [facility] Color (U) Yellow Colorless, Yellow [facility] Glucose Auto test strip (U) [Mass/Vol] Negative Negative mg/dL [facility] Ketones (U) [Mass/Vol] Negative Negative mg/dL [facility] Leukocyte esterase Auto test strip Ql (U) Large Abnormal Negative [facility] pH (U) 7.5 [pH] High [facility] Specific gravity (U) [Rel density] 1.017 [facility] UrinalysisOrdered By: Mitch Bloom on 03-11-2021 Bilirubin Ql (U) Negative Negative [facility] th Epithelial cells.squamous Auto (Urine sed) [#/Area] 1 [facility] Hemoglobin Auto test strip Ql (U) Negative Negative [facility] Interpretation and review of laboratory results Abnormal [facility] Mucus Auto (Urine sed) [#/Area] Rare None Seen, Rare /lpf [facility] Nitrite Auto test strip Ql (U) Positive Abnormal Negative [facility] Protein (U) [Mass/Vol] Negative Negative mg/dL [facility] RBC Auto (Urine sed) [#/Area] 2 [facility] Urobilinogen (U) [Mass/Vol] mg/dL <2.0 mg/dL [facility] WBC Auto (Urine sed) [#/Area] 95 High [facility] Microscopic examination is performed on all urinalysis samples and only positive findings are reported. The test for blood on the chemical analytic portion of urinalysis may also be positive due to hemoglobinuria and myoglobinuria and if red blood cells are present they are quantified by microscopic examination. [facility] Basic Metabolic Panelon 05-0 -2020 Calcium [Mass/Vol] 9.0 mg/dL Normal 8.4-10.4 [facility] Comment on above: Performed By: #### B MP3, CK3, TROPN, LFT3, HEMDF, NH33, ETOH4 #### [facility] [address] [place] [address] Glucose [Mass/Vol] 94 mg/dL Normal 70-100 [facility] Comment on above: Performed By: #### B MP3, CK3, TROPN, LFT3, HEMDF, NH33, ETOH4 #### [facility] [address] [facility] [address] eGFR OTHER > 90.0 Normal >60 [facility] Comment on above: Result Comment: KDIG [...] CK3, TROPN, LFT3, HEMDF, NH33, ETOH4 #### [facility] [address] [place] [address] Urea nitrogen [Mass/Vol] 10 mg/dL Normal 7-20 [facility] Comment on above: Performed By: #### B MP3, CK3, TROPN, LFT3, HEMDF, NH33, ETOH4 #### [facility] [address] [place] [address] Chloride [Moles/Vol] 110 mmol/L High 98-107 [facility] Comment on above: Performed By: #### B MP3, CK3, TROPN, LFT3, HEMDF, NH33, ETOH4 #### [facility] [address] [place] [address] Potassium [Moles/Vol] 3.4 mmol/L Low 3.5-5.1 [facility] Comment on above: Performed By: #### B MP3, CK3, TROPN, LFT3, HEMDF, NH33, ETOH4 #### [facility] [address] [place] [address] Sodium [Moles/Vol] 137 mmol/L Normal 135-145 [facility] Comment on above: Performed By: #### B MP3, CK3, TROPN, LFT3, HEMDF, NH33, ETOH4 #### [facility] [address] [place] [address] Basic Metabolic PanelOrdered By: Sada Castillo on 02-18-2021 Anion gap [Moles/Vol] 4 mmol/L Normal 3-13 [facility] Work Phone: Comment on above: Performed By: #### B MP3, CK3, TROPN, LFT3, HEMDF, NH33, ETOH4 #### [facility] [address] [place] [address] CO2 [Moles/Vol] 23 mmol/L Normal 22-30 [facility] Work Phone: Comment on above: Performed By: #### B MP3, CK3, TROPN, LFT3, HEMDF, NH33, ETOH4 #### [employer] [address] [place] [address] Creatinine [Mass/Vol] 0.47 mg/dL Low 0.52-1.25 [facility] Work Phone: Comment on above: Performed By: #### B MP3, CK3, TROPN, LFT3, HEMDF, NH33, ETOH4 #### [employer] [address] [place] [address] GFR/1.73 sq M.predicted among blacks MDRD (S/P/Bld) [Vol rate/Area] mL/min/{1.73_m2} Normal >[facility] Work Phone: Comment on above: Performed By: #### B MP3, CK3, TROPN, LFT3, HEMDF, NH33, ETOH4 #### [employer] [address] [place] [address] Basic Metabolic Panel w/ Ref sandra to MGOrdered By: Sada Castillo on 02-18-2021 Calcium [Mass/Vol] 9.0 mg/dL 8.4 - 10. 4 mg/dL [facility] Work Phone: Chloride [Moles/Vol] 110 mmol/L High 98 - 107 mmol/L [facility] Work Phone: EGFR IF NonAfrican [place]ian >90.0 >60 mL/min [facility] Work Phone: Comment on above: KDIGO guidelines [...] 94 mg/dL 70 - 100 mg/dL [facility] Work Phone: Interpretation and review of laboratory results Abnormal [facility] Work Phone: Potassium [Moles/Vol] 3.4 mmol/L Low 3.5 - 5.1 mmol/L [facility] Work Phone: Sodium [Moles/Vol] 137 mmol/L 135 - 145 mmol/L [facility] Work Phone: Urea nitrogen (BldV) [Mass/Vol] 10 mg/dL 7 - 20 mg/dL [facility] Work Phone: Test Performed by [facility], [address] [place], [place] [address]A Work Phone: CBCOrdered By: Sada jones on 02-18-2021 Hematocrit (Bld) [Volume fraction] 38.7 % 35.0 - 47.0 % [facility] Work Phone: Hemoglobin.gastrointe stinal spec 1 Ql (Stl) 13.0 g/dL 11.7 - 16.0 g/dL [facility] Work Phone: Interpretation and review of laboratory results Abnormal [facility] Work Phone: MCH (RBC) [Entitic mass] 33.1 pg 26.0 - 34.[address] [facility] Work Phone: MCHC (RBC) [Mass/Vol] 33.7 % 32.0 - 36.0 % [facility] Work Phone: MCV (RBC) [Entitic vol] 98.3 fL High 79.0 - 98.[address] [facility] Work Phone: Platelet distribution width (Bld) [Ratio] 14.1 % 11.5 - 14.5 % [facility] Work Phone: Platelet mean volume (Bld) [Entitic vol] 8.8 fL 7.4 - 10.4 fL [facility] Work Phone: Platelets (Bld) [#/Vol] 119 10*3/uL Low 140 - 440 10*3/uL [employer] Work Phone: [phone] RBC (Bld) [#/Vol] 3.93 10*6/uL 3.80 - 5.2 0 10*6/uL [employer] Work Phone: [phone] WBC (Bld) [#/Vol] 4.4 10*3/uL 3.6 - 10.7 10*3/uL [employer] Work Phone: Test Performed by [facility], [address] [place], [place] [address] [facility] Work Phone: Hemogramon 02-18-2021 Erythrocyte distribution width (RBC) [Ratio] 14.1 % Normal 11.5-14.5 [facility] Comment on above: Performed By: #### B MP3, CK3, TROPN, LFT3, HEMDF, NH33, ETOH4 #### [facility] [address] [place] [address] Hematocrit (Bld) [Volume fraction] 38.7 % Normal 35.0-47.0 [facility] Comment on above: Performed By: #### B MP3, CK3, TROPN, LFT3, HEMDF, NH33, ETOH4 #### [facility] [address] [place] [address] Hemoglobin (Bld) [Mass/Vol] 13.0 g/dL Normal 11.7-16.0 [facility] Comment on above: Performed By: #### B MP3, CK3, TROPN, LFT3, HEMDF, NH33, ETOH4 #### [facility] [address] [place] [address] MCH (RBC) [Entitic mass] 33.1 pg Normal 26.0-34.0 [facility] Comment on above: Performed By: #### B MP3, CK3, TROPN, LFT3, HEMDF, NH33, ETOH4 #### [facility] [address] [place] [address] MCHC 33.7 % Normal 32.0-36.0 [facility] Comment on above: Performed By: #### B MP3, CK3, TROPN, LFT3, HEMDF, NH33, ETOH4 #### [facility] [address] [place] [address] MCV (RBC) [Entitic vol] 98.3 fL High 79.0-98.0 [facility] Comment on above: Performed By: #### B MP3, CK3, TROPN, LFT3, HEMDF, NH33, ETOH4 #### [facility] [address] [place] [address] Platelet mean volume (Bld) [Entitic vol] 8.8 fL Normal 7.4-10.4 [facility] Comment on above: Performed By: #### B MP3, CK3, TROPN, LFT3, HEMDF, NH33, ETOH4 #### [facility] [address] [place] [address] Platelets (Bld) [#/Vol] 119 10*3/uL Low 140-440 [facility] Comment on above: Performed By: #### B MP3, CK3, TROPN, LFT3, HEMDF, NH33, ETOH4 #### [facility] [address] [place] [address] RBC (Bld) [#/Vol] 3.93 10*6/uL Normal 3.80-5.20 [facility] Comment on above: Performed By: #### B MP3, CK3, TROPN, LFT3, HEMDF, NH33, ETOH4 #### [facility] [address] [place] [address] WBC (Bld) [#/Vol] 4.4 10*3/uL Normal 3.6-10.7 [facility] Comment on above: Performed By: #### B MP3, CK3, TROPN, LFT3, HEMDF, NH33, ETOH4 #### [facility] [address] [place] [address] Magnesiumon 02-18-2021 Magnesium [Mass/Vol] 1.8 mg/dL Normal 1.6-2.3 [facility] Comment on above: Performed By: #### K 3, MG3 #### [facility] [address] [place] [address] Magnesium [Mass/Vol] 1.3 mg/dL Low 1.6-2.3 [facility] Comment on above: Performed By: #### B MP3, CK3, TROPN, LFT3, HEMDF, NH33, ETOH4 #### [facility] [address] [place] [address] MagnesiumOrdered By: Sada Castillo on 02-18-2021 Magnesium [Mass/Vol] 1.8 mg/dL 1.6 - 2.3 mg/dL [facility] Work Phone: Interpretation and review of laboratory results Abnormal [facility] Work Phone: Magnesium [Mass/Vol] 1.3 mg/dL Low 1.6 - 2.3 mg/dL [facility] Work Phone: Test Performed by [facility], [facility] [address] [place], [place] [id number] [place], [place] [address] Work Phone: No Panel InformationOrdered By: Sada Castillo on 02-18-[address] [facility] [place], [facility] [address] [place], [place] [address] [employer] Work Phone: Potassiumon 02-18-2021 Potassium [Moles/Vol] 4.2 mmol/L Normal 3.5-5.1 [facility] Comment on above: Performed By: #### K 3, MG3 #### [facility] [address] [place] [address] PotassiumOrdered By: Sada Castillo on 02-18-2021 Potassium [Moles/Vol] 4.2 mmol/L 3.5 - 5.1 mmol/L [facility] Work Phone: Basic Metabolic Panelon Calcium [Mass/Vol] 9.1 mg/dL Normal 8.4-10.4 [facility] Comment on above: Performed By: #### B MP3, CK3, TROPN, LFT3, HEMDF, NH33, ETOH4 #### [facility] [address] [place] [address] Glucose [Mass/Vol] 97 mg/dL Normal 70-100 [facility] Comment on above: Performed By: #### B MP3, CK3, TROPN, LFT3, HEMDF, NH33, ETOH4 #### [facility] [address] [place] [address] Urea nitrogen [Mass/Vol] 10 mg/dL Normal 7-20 [facility] Comment on above: Performed By: #### B MP3, CK3, TROPN, LFT3, HEMDF, NH33, ETOH4 #### [facility] [address] [place] [address] Anion gap [Moles/Vol] 4 mmol/L Normal 3-13 [facility] Comment on above: Performed By: #### B MP3, CK3, TROPN, LFT3, HEMDF, NH33, ETOH4 #### [facility] [address] [place] [address] CO2 [Moles/Vol] 25 mmol/L Normal 22-30 [facility] Comment on above: Performed By: #### B MP3, CK3, TROPN, LFT3, HEMDF, NH33, ETOH4 #### [facility] [address] [place] [address] Creatinine [Mass/Vol] 0.50 mg/dL Low 0.52-1.25 [facility] Comment on above: Performed By: #### B MP3, CK3, TROPN, LFT3, HEMDF, NH33, ETOH4 #### [facility] [address] [place] [address] eGFR OTHER > 90.0 Normal >60 [facility] Comment on above: Result Comment: KDIG [...] CK3, TROPN, LFT3, HEMDF, NH33, ETOH4 #### [facility] [address] [place] [address] GFR/1.73 sq M.predicted among blacks MDRD (S/P/Bld) [Vol rate/Area] mL/min/{1.73_m2} Normal >60 [facility] Comment on above: Performed By: #### B MP3, CK3, TROPN, LFT3, HEMDF, NH33, ETOH4 #### [facility] [address] [place] [address] Potassium [Moles/Vol] 3.6 mmol/L Normal 3.5-5.1 [facility] Comment on above: Performed By: #### B MP3, CK3, TROPN, LFT3, HEMDF, NH33, ETOH4 #### [facility] [address] [place] [address] Chloride [Moles/Vol] 105 mmol/L Normal 98-107 [facility] Comment on above: Performed By: #### B MP3, CK3, TROPN, LFT3, HEMDF, NH33, ETOH4 #### [facility] [address] [place] [address] Sodium [Moles/Vol] 134 mmol/L Low 135-145 [facility] Comment on above: Performed By: #### B MP3, CK3, TROPN, LFT3, HEMDF, NH33, ETOH4 #### [facility] [address] [place] [address] Basic Metabolic Panel w/ Ref sandra to MGOrdered By: Sada Castillo on 02-17-2021 Anion gap [Moles/Vol] 4 mmol/L 3 - 13 mmol/L [facility] Work Phone: Calcium [Mass/Vol] 9.1 mg/dL 8.4 - 10. 4 mg/dL [facility] Work Phone: [phone] Chloride [Moles/Vol] 105 mmol/L 98 - 107 mmol/L [facility] Work Phone: [phone] CO2 [Moles/Vol] 25 mmol/L 22 - 30 mmol/L [facility] Work Phone: [phone] Creatinine [Mass/Vol] 0.5 mg/dL Low 0.52 - 1.25 mg/dL [facility] Work Phone: [phone] IF NonAfrican B[place]ian >90.0 >60 mL/min [facility] Work Phone: [phone] Comment on above: KDIGO guidelines pro vide [...] MDRD (S/P/Bld) [Vol rate/Area] mL/min/{1.73_m2} >60 mL/min [facility] Work Phone: [phone] Glucose [Mass/Vol] 97 mg/dL 70 - 100 mg/dL [facility] Work Phone: [phone] Interpretation and review of laboratory results Abnormal [facility] Work Phone: [phone] Potassium [Moles/Vol] 3.6 mmol/L 3.5 - 5.1 mmol/L [facility] Work Phone: [phone] Sodium [Moles/Vol] 134 mmol/L Low 135 - 145 mmol/L [facility] Work Phone: [phone] Urea nitrogen (BldV) [Mass/Vol] 10 mg/dL 7 - 20 mg/dL [facility] Work Phone: 1 Test Performed by [facility] [employer], [address] [place], [place] [address] [employer] Work Phone: CBCOrdered By: Sada jones on 02-17-2021 Hematocrit (Bld) [Volume fraction] 42.2 % 35.0 - 47.0 % [facility] Work Phone: Hemoglobin.gastrointe stinal spec 1 Ql (Stl) 14.4 g/dL 11.7 - 16.0 g/dL [facility] Work Phone: Interpretation and review of laboratory results Abnormal [employer] Work Phone: MCH (RBC) [Entitic mass] 33.1 pg 26.0 - 34.0 pg [facility] Work Phone: MCHC (RBC) [Mass/Vol] 34.2 % 32.0 - 36.0 % [facility] Work Phone: MCV (RBC) [Entitic vol] 96.8 fL 79.0 - 98.0 fL [facility] Work Phone: Platelet distribution width (Bld) [Ratio] 13.9 % 11.5 - 14.5 % [facility] Work Phone: Platelet mean volume (Bld) [Entitic vol] 8.2 fL 7.4 - 10.4 fL [facility] Work Phone: Platelets (Bld) [#/Vol] 119 10*3/uL Low 140 - 440 10*3/uL [facility] Work Phone: RBC (Bld) [#/Vol] 4.36 10*6/uL 3.80 - 5.2 0 10*6/uL [facility] Work Phone: WBC (Bld) [#/Vol] 6.1 10*3/uL 3.6 - 10.7 10*3/uL [facility] Work Phone: Test Performed by [employer], [address] [place], [place] [address] [facility] Work Phone: Hemogramon 02-17-2021 Erythrocyte distribution width (RBC) [Ratio] 13.9 % Normal 11.5-14.5 [facility] Comment on above: Performed By: #### B MP3, CK3, TROPN, LFT3, HEMDF, NH33, ETOH4 #### [facility] [address] [place] [address] Hematocrit (Bld) [Volume fraction] 42.2 % Normal 35.0-47.0 [facility] Comment on above: Performed By: #### B MP3, CK3, TROPN, LFT3, HEMDF, NH33, ETOH4 #### [facility] [address] [place] [address] Hemoglobin (Bld) [Mass/Vol] 14.4 g/dL Normal 11.7-16.0 [facility] Comment on above: Performed By: #### B MP3, CK3, TROPN, LFT3, HEMDF, NH33, ETOH4 #### [facility] [address] [place] [address] MCH (RBC) [Entitic mass] 33.1 pg Normal 26.0-34.0 [facility] Comment on above: Performed By: #### B MP3, CK3, TROPN, LFT3, HEMDF, NH33, ETOH4 #### [facility] [address] [place] [address] MCHC 34.2 % Normal 32.0-36.0 [facility] Comment on above: Performed By: #### B MP3, CK3, TROPN, LFT3, HEMDF, NH33, ETOH4 #### [facility] [address] [place] [address] MCV (RBC) [Entitic vol] 96.8 fL Normal 79.0-98.0 [facility] Comment on above: Performed By: #### B MP3, CK3, TROPN, LFT3, HEMDF, NH33, ETOH4 #### [facility] [address] [place] [address] Platelet mean volume (Bld) [Entitic vol] 8.2 fL Normal 7.4-10.4 [facility] Comment on above: Performed By: #### B MP3, CK3, TROPN, LFT3, HEMDF, NH33, ETOH4 #### [facility] [address] [place] [address] Platelets (Bld) [#/Vol] 119 10*3/uL Low 140-440 [facility] Comment on above: Performed By: #### B MP3, CK3, TROPN, LFT3, HEMDF, NH33, ETOH4 #### [facility] [address] [place] [address] RBC (Bld) [#/Vol] 4.36 10*6/uL Normal 3.80-5.20 [facility] Comment on above: Performed By: #### B MP3, CK3, TROPN, LFT3, HEMDF, NH33, ETOH4 #### [facility] [address] [place] [address] WBC (Bld) [#/Vol] 6.1 10*3/uL Normal 3.6-10.7 [facility] Comment on above: Performed By: #### B MP3, CK3, TROPN, LFT3, HEMDF, NH33, ETOH4 #### [facility] [address] [place] [address] MRI Brain w/o Contraston MRI Brain w/o Contrast Patient Name: JAZMIN JOHNSON [facility] ACCESSION EXAM DATE/TIME PROCEDURE ORDERING PROVIDER [id number] 02/17/2021 13:51 EDT MRI Brain w/o Contrast Bharat CASTILLO MICHAEL THOMAS CPT code 35324 Reason For Exam (MRI Brain w/o Contrast) [...] Transcribed Date and Time: 02/17/2021 2:16 Normal [facility] MRI brain without contrastOr dered By: Sada Castillo on 02-17-2021 Patient Name: JAZMIN JOHNSON [facility] ACCESSION EXAM DATE/TIME PROCEDURE ORDERING PROVIDER [id number] 02/17/2021 13:51 EDT MRI Brain w/o Contrast Bharat CASTILLO SADA PADILLA CPT code 90081 Reason For Exam (MRI Brain w/o Contrast) [...] Phone: [place], [facility] Incoming Radiology Results From [facility] - 02/17/2021 2:16 PM EDT Patient [facility]: [id number] ACCESSION EXAM DATE/TIME PROCEDURE ORDERING PROVIDER [id number] 02/17/2021 13:51 EDT MRI Brain w/o Contrast Bharat CASTILLO MICHAEL THOMAS CPT code 22460 Reason For Exam (MRI Brain w/o Contrast) [...] NEIL Transcribed Date and Time: 02/17/2021 2:16 [facility] Work Phone: Basic Metabolic Panelon 05-0 -2020 Calcium [Mass/Vol] 8.8 mg/dL Normal 8.4-10.4 [facility] Comment on above: Performed By: #### K 3, MG3 #### [facility] [address] [place] [address] Glucose [Mass/Vol] 74 mg/dL Normal 70-100 [facility] Comment on above: Performed By: #### K 3, MG3 #### [facility] [address] [place] [address] Anion gap [Moles/Vol] 8 mmol/L Normal 3-13 [facility] Comment on above: Performed By: #### K 3, MG3 #### [facility] [address] [place] [address] CO2 [Moles/Vol] 21 mmol/L Low 22-30 [facility] Comment on above: Performed By: #### K 3, MG3 #### [facility] [address] [place] [address] Creatinine [Mass/Vol] 0.54 mg/dL Normal 0.52-1.25 [facility] Comment on above: Performed By: #### K 3, MG3 #### [facility] [address] [place] [address] eGFR OTHER > 90.0 Normal >60 [facility] Comment on above: Result Comment: KDIG [...] Performed By: #### K 3, MG3 #### [facility] [address] [place] [address] GFR/1.73 sq M.predicted among blacks MDRD (S/P/Bld) [Vol rate/Area] mL/min/{1.73_m2} Normal >60 [facility] Comment on above: Performed By: #### K 3, MG3 #### [facility] [address] [place] [address] Urea nitrogen [Mass/Vol] 10 mg/dL Normal 7-20 [facility] Comment on above: Performed By: #### K 3, MG3 #### [facility] [address] [place] [address] Potassium [Moles/Vol] 3.6 mmol/L Normal 3.5-5.1 [facility] Comment on above: Performed By: #### K 3, MG3 #### [facility] [address] [place] [address] Sodium [Moles/Vol] 134 mmol/L Low 135-145 [facility] Comment on above: Performed By: #### K 3, MG3 #### [facility] [address] [place] [address] Chloride [Moles/Vol] 105 mmol/L Normal 98-107 [facility] Comment on above: Performed By: #### K 3, MG3 #### [facility] [address] [place] [address] Basic Metabolic PanelOrdered By: Frankie Sorensen on 02-16-2021 Anion gap [Moles/Vol] 8 mmol/L 3 - 13 mmol/L [facility] Work Phone: Calcium [Mass/Vol] 8.8 mg/dL 8.4 - 10. 4 mg/dL [facility] Work Phone: Chloride [Moles/Vol] 105 mmol/L 98 - 107 mmol/L [facility] Work Phone: CO2 [Moles/Vol] 21 mmol/L Low 22 - 30 mmol/L [facility] Work Phone: Creatinine [Mass/Vol] 0.54 mg/dL 0.52 - 1.25 mg/dL [facility] Work Phone: EGFR IF NonAfrican Bermudian >90.0 >60 mL/min [facility] Work Phone: Comment on above: KDIGO guidelines [...] rate/Area] mL/min/{1.73_m2} >60 mL/min [facility] Work Phone: Glucose [Mass/Vol] 74 mg/dL 70 - 100 mg/dL [facility] Work Phone: Potassium [Moles/Vol] 3.6 mmol/L 3.5 - 5.1 mmol/L [facility] Work Phone: Sodium [Moles/Vol] 134 mmol/L Low 135 - 145 mmol/L [facility] Work Phone: Urea nitrogen (BldV) [Mass/Vol] 10 mg/dL 7 - 20 mg/dL [facility] Work Phone: CBCOrdered By: Sada jones on 02-16-2021 Hematocrit (Bld) [Volume fraction] 37.8 % 35.0 - 47.0 % [facility] Work Phone: Hemoglobin.gastrointe stinal spec 1 Ql (Stl) 13.1 g/dL 11.7 - 16.0 g/dL [facility] Work Phone: Interpretation and review of laboratory results Abnormal [facility] Work Phone: MCH (RBC) [Entitic mass] 33.4 pg 26.0 - 34.[address] [facility] Work Phone: MCHC (RBC) [Mass/Vol] 34.6 % 32.0 - 36.0 % [facility] Work Phone: MCV (RBC) [Entitic vol] 96.6 fL 79.0 - 98.[address] [facility] Work Phone: Platelet distribution width (Bld) [Ratio] 15.0 % High 11.5 - 14.5 % [facility] Work Phone: Platelet mean volume (Bld) [Entitic vol] 9.5 fL 7.4 - 10.[address] [facility] Work Phone: Platelets (Bld) [#/Vol] 123 10*3/uL Low 140 - 440 10*3/uL [facility] Work Phone: RBC (Bld) [#/Vol] 3.91 10*6/uL 3.80 - 5.2 0 10*6/uL [facility] Work Phone: WBC (Bld) [#/Vol] 4.1 10*3/uL 3.6 - 10.7 10*3/uL [facility] Work Phone: Test Performed by [facility], [address] [place] [address] [facility] Work Phone: Complete Urinalysison 2020 Appearance (U) Clear Normal Clear [facility] Comment on above: Result Comment: . Performed By: #### K 3, MG3 #### [facility] [address] [place] [address] Bilirubin,Urine Negative Normal Negative [facility] Comment on above: Result Comment: . Performed By: #### K 3, MG3 #### [facility] [address] [place] [address] Color (U) Light-Yellow Normal Lt. Yellow [facility] Comment on above: Result Comment: . Performed By: #### K 3, MG3 #### [facility] [address] [place] [address] Glucose Ql (U) Normal Normal Normal (<70) [facility] Comment on above: Result Comment: . Performed By: #### K 3, MG3 #### [facility] [address] [place] [address] Ketone,Urine 80 mg/dL Abnormal Negative [facility] Comment on above: Result Comment: . Performed By: #### K 3, MG3 #### [facility] [address] [place] [address] Leukocytes,Urine Negative Normal Negative [facility] Comment on above: Result Comment: . Performed By: #### K 3, MG3 #### [facility] [address] [place] [address] Nitrites,Urine Negative Normal Negative [facility] Comment on above: Result Comment: . Performed By: #### K 3, MG3 #### [facility] [address] [place] [address] Occult Blood,Urine Negative Normal Negative [facility] Comment on above: Result Comment: . Performed By: #### K 3, MG3 #### [facility] [address] [place] [address] pH,Urine 6.5 Normal 5.0-8.0 [facility] Comment on above: Result Comment: . Performed By: #### K 3, MG3 #### [facility] [address] [place] [address] Specific [place],Urine 1.020 Normal 1.005 - 1.030 [facility] Comment on above: Result Comment: . Performed By: #### K 3, MG3 #### [facility] [address] [place] [address] Total Protein,Urine Negative Normal Negative [facility] Comment on above: Result Comment: . Performed By: #### K 3, MG3 #### [facility] [address] [place] [address] Urobilinogen,Urine 2 mg/dL Abnormal Normal (0-1) [facility] Comment on above: Result Comment: . Performed By: #### K 3, MG3 #### [facility] [address] [place] [address] Drugs of Abuseon 02-16-2021 Phencyclidine (PCP), Ur Negative Normal [facility] Comment on above: Result Comment: The [...] Performed By: #### K 3, MG3 #### [facility] [address] [place] [address] Methadone, Ur Negative Normal [facility] Comment on above: Performed By: #### K 3, MG3 #### [facility] [address] [place] [address] Opiates, Ur Negative Normal [facility] Comment on above: Performed By: #### K 3, MG3 #### [facility] [address] [place] [address] Amphetamines, Ur Negative Normal [facility] Comment on above: Performed By: #### K 3, MG3 #### [facility] [address] [place] [address] Cocaine, Ur Negative Normal [facility] Comment on above: Performed By: #### K 3, MG3 #### [facility] [address] [place] [address] Benzodiazepines, Ur Negative Normal [facility] Comment on above: Performed By: #### K 3, MG3 #### [facility] [address] [place] [address] Barbiturates, Ur Positive Normal [facility] Comment on above: Performed By: #### K 3, MG3 #### [facility] [address] [place] [address] Oxycodone/Oxymorphine ,Ur Negative Normal [facility] Comment on above: Performed By: #### K 3, MG3 #### [facility] [address] [place] [address] EKG 12 Lead if not already d one by SquadOrdered By: Arpit Buchanan on 02-16-2021 [facility] Test Date: 2021-02-15 Pat Name: JAZMIN JOHNSON Department: 01 Room: 254 Gender: F Can Vacuum Tester: : 1950 Requested By: ARPIT BUCHANAN Order Number: [id number] Reading MD: Eliecer Echevarria Measurements Intervals [place] Rate: 107 P: 62 ME: 128 QRS: -3 QRSD: 94 T: 48 QT: 340 QTc: 454 Interpretive Statements SINUS TACHYCARDIA Otherwise Normal ECG Electronically Signed On 02-16-2021 13:52:22 EDT [address] [facility] Work [facility]: [place], [facility] Incoming Cardiology Results From [facility] - 02/16/2021 1:53 PM EDT [facility] Test Date: 2021-02-15 Pat Name: JAZMIN JOHNSON Department: 01 Room: 254 Gender: F Can Vacuum Tester: : 1950 Requested By: ARPIT BUCHANAN Order Number: [id number] Reading MD: Eliecer Echevarria Measurements Intervals [place] Rate: 107 P: 62 ME: 128 QRS: -3 QRSD: 94 T: 48 QT: 340 QTc: 454 Interpretive Statements SINUS TACHYCARDIA Otherwise Normal ECG Electronically Signed On 02-16-2021 13:52:22 EDT by Eliecer Echevarria [facility] Work Phone: Hemoglobin A1Con 02-16-2021 Glucose [Mass/Vol] 100 mg/dL Normal [facility] Comment on above: Performed By: #### B MP3, CK3, TROPN, LFT3, HEMDF, NH33, ETOH4 #### [employer] [address] [place] [address] HbA1c (Bld) [Mass fraction] 5.1 % Normal [facility] Comment on above: Result Comment: Norm al less than 5.7% Prediabetes 5.7% to 6.4% Diabetes 6.5% or higher --HgbA1C levels may not be accurate in patients who have renal disease, received recent blood transfusions, are anemic, or who have dyshemoglobinemia. Performed By: #### B MP3, CK3, TROPN, LFT3, HEMDF, NH33, ETOH4 #### [employer] [address] [place] [address] Hemoglobin [id number] By: Tierra Castillo on 02-16-2021 HbA1c (Bld) [Mass fraction] 5.1 % [facility] Work Phone: Comment on above: Normal less than 5.7 % Prediabetes 5.7% to 6.4% Diabetes 6.5% or higher --HgbA1C levels may not be accurate in patients who have renal disease, received recent blood transfusions, are anemic, or who have dyshemoglobinemia. Magnesium [Mass/Vol] 100 mg/dL [facility] Work Phone: Test Performed by [employer], [address] [place], [place] [address] [facility] Work Phone: Hemogramon 02-16-2021 Erythrocyte distribution width (RBC) [Ratio] 15.0 % High 11.5-14.5 [facility] Comment on above: Performed By: #### B MP3, CK3, TROPN, LFT3, HEMDF, NH33, ETOH4 #### [facility] [address] [place] [address] Hematocrit (Bld) [Volume fraction] 37.8 % Normal 35.0-47.0 [facility] Comment on above: Performed By: #### B MP3, CK3, TROPN, LFT3, HEMDF, NH33, ETOH4 #### [facility] [address] [place] [address] Hemoglobin (Bld) [Mass/Vol] 13.1 g/dL Normal 11.7-16.0 [facility] Comment on above: Performed By: #### B MP3, CK3, TROPN, LFT3, HEMDF, NH33, ETOH4 #### [facility] [address] [place] [address] MCH (RBC) [Entitic mass] 33.4 pg Normal 26.0-34.0 [facility] Comment on above: Performed By: #### B MP3, CK3, TROPN, LFT3, HEMDF, NH33, ETOH4 #### [facility] [address] [place] [address] MCHC 34.6 % Normal 32.0-36.0 [facility] Comment on above: Performed By: #### B MP3, CK3, TROPN, LFT3, HEMDF, NH33, ETOH4 #### [facility] [address] [place] [address] MCV (RBC) [Entitic vol] 96.6 fL Normal 79.0-98.0 [facility] Comment on above: Performed By: #### B MP3, CK3, TROPN, LFT3, HEMDF, NH33, ETOH4 #### [facility] [address] [place] [address] Platelet mean volume (Bld) [Entitic vol] 9.5 fL Normal 7.4-10.4 [facility] Comment on above: Performed By: #### B MP3, CK3, TROPN, LFT3, HEMDF, NH33, ETOH4 #### [facility] [address] [place] [address] Platelets (Bld) [#/Vol] 123 10*3/uL Low 140-440 [facility] Comment on above: Performed By: #### B MP3, CK3, TROPN, LFT3, HEMDF, NH33, ETOH4 #### [facility] [address] [place] [address] RBC (Bld) [#/Vol] 3.91 10*6/uL Normal 3.80-5.20 [facility] Comment on above: Performed By: #### B MP3, CK3, TROPN, LFT3, HEMDF, NH33, ETOH4 #### [facility] [address] [place] [address] WBC (Bld) [#/Vol] 4.1 10*3/uL Normal 3.6-10.7 [facility] Comment on above: Performed By: #### B MP3, CK3, TROPN, LFT3, HEMDF, NH33, ETOH4 #### [facility] [address] [place] [address] Lipid Panelon 02-16-2021 Chol/HDL 3 Normal [facility] Comment on above: Result Comment: Ref Range: < 3 Low Risk for CHD 3-6 Mod Risk for CHD > 6 High Risk for CHD Performed By: #### K 3, MG3 #### [facility] [address] [place] [address] Cholesterol in HDL [Mass/Vol] 64 mg/dL High 40-60 [facility] Comment on above: Performed By: #### K 3, MG3 #### [facility] [address] [place] [address] Low Density Lipoprotein 128 mg/dL Abnormal <100 [facility] Comment on above: Performed By: #### K 3, MG3 #### [facility] [address] [place] [address] Triglyceride [Mass/Vol] 136 mg/dL Normal <150 [facility] Comment on above: Performed By: #### K 3, MG3 #### [facility] [address] [place] [address] Cholesterol [Mass/Vol] 219 mg/dL Abnormal < 200 [facility] Comment on above: Performed By: #### K 3, MG3 #### [facility] [address] [place] [address] Lipid PanelOrdered By: Sarai Sorensen on 02-16-2021 Cholesterol [Mass/Vol] 219 mg/dL Abnormal <200 [employer] Work Phone: [phone] Cholesterol in HDL [Mass/Vol] 64 mg/dL High 40 - 60 mg/dL [facility] Work Phone: [phone] Cholesterol in LDL [Mass/Vol] 128 mg/dL Abnormal <100 [employer] Work Phone: [phone] Cholesterol.total/Cho lesterol in HDL [Mass ratio] 3 {ratio} [employer] Work Phone: [phone] Comment on above: Ref Range: < 3 Low Risk for CHD 3-6 Mod Risk for CHD > 6 High Risk for CHD Triglyceride [Mass/Vol] 136 mg/dL <150 [facility] Work Phone: [phone] Panel InformationOrdered By: Frankie Sorensen on 02-16-2021 Interpretation and review of laboratory results Abnormal [employer] Work Phone: [phone] Test Performed by [employer], [address] [place], [place] [address] [facility] Work Phone: [phone] UrinalysisOrdered By: Edith Castillo on 02-16-2021 Appearance (U) Clear Clear NA [employer] Work Phone: [phone] Comment on above: . Bilirubin Urine Negative Negative mg/dL [employer] Work Phone: [phone] Comment on above: . Color (U) Light-Yellow Lt. Yellow NA [employer] Work Phone: [phone] Comment on above: . Glucose, Ur Normal Normal (<70) mg/dL [employer] Work Phone: [phone] Comment on above: . Interpretation and review of laboratory results Abnormal [employer] Work Phone: [phone] Ketones Ql (U) 80 mg/dL Abnormal Negative [facility] Work Phone: 1 Comment on above: . LEUKOCYTES, UA Negative Negative Jennifer/uL [facility] Work Phone: 1 Comment on above: . Nitrite, Urine Negative Negative NA [facility] Work Phone: 1 Comment on above: . Occult Blood,Urine Negative Negative mg/dL [employer] Work Phone: 1 Comment on above: . pH (U) 6.5 [pH] [facility] Work Phone: 1 Comment on above: . Specific [place], Urine 1.020 [facility] Work Phone: 1 Comment on above: . Total Protein, Urine Negative Negative mg/dL [facility] Work Phone: 1 Comment on above: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 BMPX #### [place] [address] Restaurant Cashier: Wu England MD Ethanol [Mass/Vol] 171 mg/dL High <10 [facility] Comment on above: Performed By: #### C DP, ALCB, BMPX #### [place] [address] Restaurant Cashier: Wu England MD Ethanol percent 0.171 % High <0.010 [facility] Comment on above: Performed By: #### C DP, ALCB, BMPX #### [place] [address] Restaurant Cashier: Wu England MD GFR, Amer >60 Normal >60 [place] Comment on above: Performed By: #### C DP, ALCB, BMPX #### [place] [address] Restaurant Cashier: Wu England MD GFR,non Amer >60 Normal >60 [facility] Comment on above: Performed By: #### C DP, ALCB, BMPX #### [place] [address] Restaurant Cashier: Wu England MD Glucose [Mass/Vol] 89 mg/dL Normal 70-99 [facility] Comment on above: Performed By: #### C DP, ALCB, BMPX #### [place] [address] Restaurant Cashier: Wu England MD Potassium [Moles/Vol] 4.0 mmol/L Normal 3.7-5.3 [facility] Comment on above: Performed By: #### C DP, ALCB, BMPX #### [place] [address] Restaurant Cashier: Wu England MD Sodium [Moles/Vol] 139 mmol/L Normal 135-144 [facility] Comment on above: Performed By: #### C DP, ALCB, BMPX #### [place] [address] Restaurant Cashier: Wu England MD Urea nitrogen [Mass/Vol] 7 mg/dL Low 8-23 [facility] Comment on above: Performed By: #### C DP, ALCB, BMPX #### [place] [address] Restaurant Cashier: Wu England MD Body Temp. 37.0 Normal [facility] Comment on above: Performed By: #### C DP, ALCB, BMPX #### [place] [id number] Restaurant Cashier: Wu England MD Carboxy Hgb 2.1 % Normal 0-5 [facility] Comment on above: Result Comment: Reference Range: Non-Smokers 0-2% Average Smoker 2-4% Heavy Smoker <10% Performed By: #### C DP, ALCB, BMPX #### [place] [address] Restaurant Cashier: Wu England MD FIO2 VENOUS Normal [facility] Comment on above: Performed By: #### C DP, ALCB, BMPX #### [place] [address] Restaurant Cashier: Wu England MD HCO3 (Bld) [Moles/Vol] 24.3 mmol/L Normal 24-30 [facility] Comment on above: Performed By: #### C DP, ALCB, BMPX #### [place] [address] Restaurant Cashier: Wu England MD Negative Base Excess 0.6 mmol/L Normal 0.0-2.0 [facility] Comment on above: Performed By: #### C DP, ALCB, BMPX #### [place] [address] Restaurant Cashier: Wu England MD Oxygen (Bld) [Partial pressure] 82.0 mm[Hg] High 30-50 [facility] Comment on above: Performed By: #### C DP, ALCB, BMPX #### [place] [address] Restaurant Cashier: Wu England MD Oxygen saturation in Blood 94.4 % High 60.0-85.0 [facility] Comment on above: Performed By: #### C DP, ALCB, BMPX #### [place] [address] Restaurant Cashier: Wu England MD pCO2 43.4 Normal 39-55 [facility] Comment on above: Performed By: #### C DP ALCB, BMPX #### [place] [id number] Restaurant Cashier: Wu England MD pH (Bld) 7.367 [pH] Normal 7.320-7.420 [facility] Comment on above: Performed By: #### C DP, ALCB, BMPX #### [place] [id number] Restaurant Cashier: Wu England MD Erythrocyte distribution width (RBC) [Ratio] 12.9 % Normal 11.8-14.4 [facility] Comment on above: Performed By: #### C DP ALCB, BMPX #### [place] [address] Restaurant Cashier: Wu England MD Hematocrit (Bld) [Volume fraction] 41.8 % Normal 36.3-47.1 [facility] Comment on above: Performed By: #### C DP ALCB, BMPX #### [place] [id number] Restaurant Cashier: Wu England MD Hemoglobin (Bld) [Mass/Vol] 13.3 g/dL Normal 11.9-15.1 [facility] Comment on above: Performed By: #### C DP ALCB, BMPX #### [place] [id number] Restaurant Cashier: Wu England MD MCH (RBC) [Entitic mass] 32.5 pg Normal 25.2-33.5 [facility] Comment on above: Performed By: #### C DP, ALCB, BMPX #### [place] [address] Restaurant Cashier: Wu England MD MCHC (RBC) [Mass/Vol] 31.8 g/dL Normal 28.4-34.8 [facility] Comment on above: Performed By: #### C DP, ALCB, BMPX #### [place] [address] Restaurant Cashier: Wu England MD MCV (RBC) [Entitic vol] 102.2 fL Normal 82.6-102.9 [facility] Comment on above: Performed By: #### C DP, ALCB, BMPX #### [place] [address] Restaurant Cashier: Wu Engladn MD NRBC Automated 0.0 per 100 WBC Normal 0.0 [facility] Comment on above: Performed By: #### C DP, ALCB, BMPX #### [place] [address] Restaurant Cashier: Wu England MD Platelet mean volume (Bld) [Entitic vol] 10.2 fL Normal 8.1-13.5 [facility] Comment on above: Performed By: #### C DP, ALCB, BMPX #### [place] [address] Restaurant Cashier: Wu England MD Platelets (Bld) [#/Vol] 206 10*3/uL Normal 138-453 [facility] Comment on above: Performed By: #### C DP, ALCB, BMPX #### [place] [address] Restaurant Cashier: Wu England MD RBC (Bld) [#/Vol] 4.09 10*6/uL Normal 3.95-5.11 [facility] Comment on above: Performed By: #### C DP, ALCB, BMPX #### [place] [address] Restaurant Cashier: Wu England MD WBC (Bld) [#/Vol] 7.8 10*3/uL Normal 3.5-11.3 [facility] Comment on above: Performed By: #### C DP, ALCB, BMPX #### [place] [address] Restaurant Cashier: Wu England MD Darrick Test NOT REPORTED Normal [facility] Comment on above: Performed By: #### C DP, ALCB, BMPX #### [place] [address] Restaurant Cashier: Wu England MD Methemoglobin NOT REPORTED Normal 0.0-1.5 [facility] Comment on above: Performed By: #### C DP, ALCB, BMPX #### [place] [address] Restaurant Cashier: Wu England MD Mode NOT REPORTED Normal [facility] Comment on above: Performed By: #### C DP, ALCB, BMPX #### [place] [address] Restaurant Cashier: Wu England MD Notification Time NOT REPORTED Normal [facility] Comment on above: Performed By: #### C DP, ALCB, BMPX #### [place] [address] Restaurant Cashier: Wu England MD Notification: NOT REPORTED Normal [facility] Comment on above: Performed By: #### C DP, ALCB, BMPX #### [place] [address] Restaurant Cashier: Wu England MD O2 Device/Flow/% NOT REPORTED Normal [facility] Comment on above: Performed By: #### C DP, ALCB, BMPX #### [place] [address] Restaurant Cashier: Wu England MD Oxyhemoglobin NOT REPORTED Normal 95.0-98.0 [facility] Comment on above: Performed By: #### C DP, ALCB, BMPX #### [place] [address] Restaurant Cashier: Wu England MD Pco2 Adj'd for Temp. NOT REPORTED Normal 39-55 [facility] Comment on above: Performed By: #### C DP, ALCB, BMPX #### [place] [address] Restaurant Cashier: Wu England MD PEEP/CPAP NOT REPORTED Normal [facility] Comment on above: Performed By: #### C DP, ALCB, BMPX #### [place] [address] Restaurant Cashier: Wu England MD pH Adjst'd for Temp. NOT REPORTED Normal 7.320-7.420 [facility] Comment on above: Performed By: #### C DP, ALCB, BMPX #### [place] [address] Restaurant Cashier: Wu England MD pO2 Adj'd for Temp. NOT REPORTED Normal 30-50 [facility] Comment on above: Performed By: #### C DP, ALCB, BMPX #### [place] [address] Restaurant Cashier: Wu England MD Positive Base Excess NOT REPORTED Normal 0.0-2.0 [facility] Comment on above: Performed By: #### C DP, ALCB, BMPX #### [place] [address] Restaurant Cashier: Wu England MD PSV NOT REPORTED Normal [facility] Comment on above: Performed By: #### C DP, ALCB, BMPX #### [place] [address] Restaurant Cashier: Wu England MD Pt. Position NOT REPORTED Normal [facility] Comment on above: Performed By: #### C DP, ALCB, BMPX #### [place] [address] Restaurant Cashier: Wu England MD Respiratory Rate NOT REPORTED Normal [facility] Comment on above: Performed By: #### C DP, ALCB, BMPX #### [place] [address] Restaurant Cashier: Wu England MD Set Rate NOT REPORTED Normal [facility] Comment on above: Performed By: #### C DP, ALCB, BMPX #### [address] [address] Restaurant Cashier: Wu England MD Site Drawn NOT REPORTED Normal [facility] Comment on above: Performed By: #### C DP, ALCB, BMPX #### [address] [place], [place] [id number] Restaurant Cashier: Wu England MD Staging: NOT REPORTED Normal [facility] Comment on above: Performed By: #### C DP, ALCB, BMPX #### [address] [address] Restaurant Cashier: Wu England MD Text for Respiratory NOT REPORTED Normal [facility] Comment on above: Performed By: #### C DP, ALCB, BMPX #### [place] [address] Restaurant Cashier: Wu England MD Total Hb NOT REPORTED Normal 12.0-16.0 [facility] Comment on above: Performed By: #### C DP, ALCB, BMPX #### [place] [address] Restaurant Cashier: Wu England MD Total Rate NOT REPORTED Normal [facility] Comment on above: Performed By: #### C DP, ALCB, BMPX #### [place] [address] Restaurant Cashier: Wu England MD VT NOT REPORTED Normal [facility] Comment on above: Performed By: #### C DP, ALCB, BMPX #### [place] [address] Restaurant Cashier: MD Star Sherman 01-13-2021 aPTT Coag (Blmeche) [Time] 21.5 s Normal 21.3-31.3 [facility] Comment on above: Performed By: #### P T, PTT #### [place] [address] Restaurant Cashier: Wu England MD aPTT Coag (Marcel) [Time] 21.5 s [facility] Work Phone: Basic Metab w/rfx MGon 01-13 (cont.) Normal [facility] Comment on above: Result Comment: Aver age GFR for 60-69 years old: 85 mL/min/1.73sq m Chronic Kidney Disease: <60 mL/min/1.73sq m Kidney failure: <15 mL/min/1.73sq m eGFR calculated using average adult body mass. Additional eGFR calculator available at: http://www.Asterion/multiple_crcl_2011.htm Performed By: #### C DP ALCB, BMPX #### [place] [address] Restaurant Cashier: Wu England MD Anion gap [Moles/Vol] 11 mmol/L Normal 9-17 [facility] Comment on above: Performed By: #### C DP ALCB, BMPX #### [address] [address] Restaurant Cashier: Wu England MD Calcium [Mass/Vol] 9.2 mg/dL Normal 8.6-10.4 [facility] Comment on above: Performed By: #### C DP ALCB, BMPX #### [place] [address] Restaurant Cashier: Wu England MD Chloride [Moles/Vol] 104 mmol/L Normal 98-107 [facility] Comment on above: Performed By: #### C DP ALCB, BMPX #### [place] [id number] Restaurant Cashier: Wu England MD CO2 [Moles/Vol] 26 mmol/L Normal 20-31 [facility] Comment on above: Performed By: #### C DP, ALCB, BMPX #### [place] [address] Restaurant Cashier: Wu England MD Creatinine [Mass/Vol] 0.64 mg/dL Normal 0.50-0.90 [facility] Comment on above: Performed By: #### C DP, ALCB, BMPX #### [place] [address] Restaurant Cashier: Wu England MD GFR, Amer >60 Normal >60 [place] Comment on above: Performed By: #### C DP, ALCB, BMPX #### [place] [address] Restaurant Cashier: Wu England MD GFR,non Amer >60 Normal >60 [facility] Comment on above: Performed By: #### C DP, ALCB, BMPX #### [place] [address] Restaurant Cashier: Wu England MD Glucose [Mass/Vol] 121 mg/dL High 70-99 [facility] Comment on above: Performed By: #### C DP, ALCB, BMPX #### [place] [address] Restaurant Cashier: Wu England MD Potassium [Moles/Vol] 3.8 mmol/L Normal 3.7-5.3 [facility] Comment on above: Performed By: #### C DP, ALCB, BMPX #### [place] [address] Restaurant Cashier: Wu England MD Sodium [Moles/Vol] 141 mmol/L Normal 135-144 [facility] Comment on above: Performed By: #### C DP, ALCB, BMPX #### [address] [address] Restaurant Cashier: Wu England MD Urea nitrogen [Mass/Vol] 9 mg/dL Normal 8-23 [facility] Comment on above: Performed By: #### C DP, ALCB, BMPX #### [address] [address] Restaurant Cashier: Wu England MD BUN/CRE Ratio NOT REPORTED Normal 9-20 [facility] Comment on above: Performed By: #### C DP, ALCB, BMPX #### [address] [address] Restaurant Cashier: Wu England MD Staging: NOT REPORTED Normal [facility] Comment on above: Performed By: #### C DP, ALCB, BMPX #### [address] [address] Restaurant Cashier: Wu England MD Basic Metabolic Panel w/ Ref sandra to MGon 01-13-2021 Anion gap [Moles/Vol] 11 mmol/L 9 - 17 mmol/L [facility] [employer] Work Phone: Bun/Cre Ratio NOT REPORTED [facility] Work Phone: Calcium [Mass/Vol] 9.2 mg/dL 8.6 - 10. 4 mg/dL [facility] Work Phone: Chloride [Moles/Vol] 104 mmol/L 98 - 107 mmol/L [facility] [employer] Phone: CO2 [Moles/Vol] 26 mmol/L 20 - 31 mmol/L [facility] Work Phone: Creatinine [Mass/Vol] 0.64 mg/dL 0.50 - 0.90 mg/dL [employer] Phone: GFR >60 >60 mL/min [employer] Phone: GFR Non- >60 >60 mL/min [employer] Phone: GFR/1.73 sq M predicted among non-blacks MDRD (S/P/Bld) [Vol rate/Area] [employer] Phone: Comment on above: Average GFR for 60-6 9 years old: 85 mL/min/1.73sq m Chronic Kidney Disease: <60 mL/min/1.73sq m Kidney failure: <15 mL/min/1.73sq m eGFR calculated using average adult body mass. Additional eGFR calculator available at: http://www.Asterion/multiple_crcl_2012.htm GFR/1.73 sq M predicted among non-blacks MDRD (S/P/Bld) [Vol rate/Area] NOT REPORTED [employer] Phone: Glucose [Mass/Vol] 121 mg/dL High 70 - 99 mg/dL [employer] Phone: Potassium [Moles/Vol] 3.8 mmol/L 3.7 - 5.3 mmol/L [employer] Phone: Sodium [Moles/Vol] 141 mmol/L 135 - 144 mmol/L [employer] Phone: Urea nitrogen [Mass/Vol] 9 mg/dL 8 - 23 mg/dL [employer] Phone: CBC Auto Differentialon 04-0 -2020 Basophils (Bld) [#/Vol] 0.10 10*3/uL [employer] Phone: Basophils/100 WBC (Bld) 1 % 0 - 2 % [employer] Phone: Differential Type NOT REPORTED [employer] Phone: Eosinophils (Bld) [#/Vol] 0.10 10*3/uL [employer] Phone: Eosinophils/100 WBC (Bld) 2 % 1 - 4 % [employer] Phone: Erythrocyte distribution width (RBC) [Ratio] 13.6 % 12.5 - 15.4 % [employer] Phone: Hematocrit (Bld) [Volume fraction] 41.8 % 36 - 46 % [employer] Phone: Hemoglobin (Bld) [Mass/Vol] 13.8 g/dL 12.0 - 16.0 g/dL [employer] Phone: Lymphocytes (Bld) [#/Vol] 1.90 10*3/uL [employer] Phone: Lymphocytes/100 WBC (Bld) 36 % 24 - 44 % [employer] Phone: MCH (RBC) [Entitic mass] 32.6 pg 26 - 34 pg [employer] Phone: MCHC (RBC) [Mass/Vol] 33.1 g/dL 31 - 37 g/dL [employer] Phone: MCV (RBC) [Entitic vol] 98.3 fL 80 - 100 fL [employer] Phone: Monocytes (Bld) [#/Vol] 0.50 10*3/uL [employer] Phone: Monocytes/100 WBC (Bld) 9 % 2 - 11 % [employer] Phone: Platelet mean volume (Bld) [Entitic vol] 8.7 fL 6.0 - 12.0 fL [employer] Phone: Platelets (Bld) [#/Vol] NOT REPORTED [employer] Phone: Platelets (Bld) [#/Vol] 246 10*3/uL [employer] Phone: RBC (Bld) [#/Vol] 4.25 10*6/uL 4.0 - 5.2 m/uL [facility] [employer] Work Phone: RBC morphology finding Nom (Bld) NOT REPORTED [facility] [employer] Work Phone: Segmented neutrophils/100 WBC (Bld) 52 % 36 - 66 % [facility] [employer] Work Phone: Segs Absolute 2.70 [facility] Work Phone: WBC (Bld) [#/Vol] NOT REPORTED per 100 WBC [facility] [employer] Work Phone: WBC (Bld) [#/Vol] 5.4 10*3/uL [facility] [employer] Work Phone: WBC Morphology NOT REPORTED [facility] Work Phone: CBC with Diffon 01-13-2021 Abs. Basophil 0.10 k/uL Normal 0.0-0.2 [facility] Comment on above: Performed By: #### C DP, ALCB, BMPX #### [place] [address] Restaurant Cashier: Wu England MD Abs.Neutrophil (Seg) 2.70 k/uL Normal 1.8-7.7 [facility] Comment on above: Performed By: #### C DP, ALCB, BMPX #### [address] [address] Restaurant Cashier: Wu England MD Basophils/100 WBC (Bld) 1 % Normal 0-2 [facility] Comment on above: Performed By: #### C DP, ALCB, BMPX #### [address] [address] Restaurant Cashier: Wu England MD Eosinophils (Bld) [#/Vol] 0.10 10*3/uL Normal 0.0-0.4 [facility] Comment on above: Performed By: #### C DP, ALCB, BMPX #### [place] [address] Restaurant Cashier: Wu England MD Eosinophils/100 WBC (Bld) 2 % Normal 1-4 [facility] Comment on above: Performed By: #### C DP, ALCB, BMPX #### [place] [address] Restaurant Cashier: Wu England MD Erythrocyte distribution width (RBC) [Ratio] 13.6 % Normal 12.5-15.4 [facility] Comment on above: Performed By: #### C DP, ALCB, BMPX #### [place] [address] Restaurant Cashier: Wu England MD Hematocrit (Bld) [Volume fraction] 41.8 % Normal 36-46 [facility] Comment on above: Performed By: #### C DP, ALCB, BMPX #### [place] [address] Restaurant Cashier: Wu England MD Hemoglobin (Bld) [Mass/Vol] 13.8 g/dL Normal 12.0-16.0 [facility] Comment on above: Performed By: #### C DP, ALCB, BMPX #### [place] [address] Restaurant Cashier: Wu England MD Lymphocytes (Bld) [#/Vol] 1.90 10*3/uL Normal 1.0-4.8 [facility] Comment on above: Performed By: #### C DP, ALCB, BMPX #### [place] [address] Restaurant Cashier: Wu England MD Lymphocytes/100 WBC (Bld) 36 % Normal 24-44 [facility] Comment on above: Performed By: #### C DP, ALCB, BMPX #### [place] [address] Restaurant Cashier: Wu England MD MCH (RBC) [Entitic mass] 32.6 pg Normal 26-34 [facility] Comment on above: Performed By: #### C DP, ALCB, BMPX #### [place] [address] Restaurant Cashier: Wu England MD MCHC (RBC) [Mass/Vol] 33.1 g/dL Normal 31-37 [facility] Comment on above: Performed By: #### C DP, ALCB, BMPX #### [place] [address] Restaurant Cashier: Wu England MD MCV (RBC) [Entitic vol] 98.3 fL Normal 80-100 [facility] Comment on above: Performed By: #### C DP, ALCB, BMPX #### [place] [address] Restaurant Cashier: Wu England MD Monocytes (Bld) [#/Vol] 0.50 10*3/uL Normal 0.1-1.2 [facility] Comment on above: Performed By: #### C DP, ALCB, BMPX #### [place] [address] Restaurant Cashier: Wu England MD Monocytes/100 WBC (Bld) 9 % Normal 2-11 [facility] Comment on above: Performed By: #### C DP, ALCB, BMPX #### [place] [address] Restaurant Cashier: Wu England MD Neutrophil (Seg) 52 % Normal 36-66 [place] Comment on above: Performed By: #### C DP, ALCB, BMPX #### [place] [address] Restaurant Cashier: Wu England MD Platelet mean volume (Bld) [Entitic vol] 8.7 fL Normal 6.0-12.0 [facility] Comment on above: Performed By: #### C DP, ALCB, BMPX #### [place] [address] Restaurant Cashier: Wu England MD Platelets (Bld) [#/Vol] 246 10*3/uL Normal 140-450 [facility] Comment on above: Performed By: #### C DP, ALCB, BMPX #### [place] [address] Restaurant Cashier: Wu England MD RBC (Bld) [#/Vol] 4.25 10*6/uL Normal 4.0-5.2 [facility] Comment on above: Performed By: #### C DP, ALCB, BMPX #### [place] [address] Restaurant Cashier: Wu England MD WBC (Bld) [#/Vol] 5.4 10*3/uL Normal 3.5-11.0 [facility] Comment on above: Performed By: #### C DP, ALCB, BMPX #### [address] [place] [address] Restaurant Cashier: Wu England MD Abs.Imm.Granulocyte NOT REPORTED Normal 0.00-0.30 [facility] Comment on above: Performed By: #### C DP, ALCB, BMPX #### [place] [address] Restaurant Cashier: Wu England MD Auto Diff Performed NOT REPORTED Normal [facility] Comment on above: Performed By: #### C DP, ALCB, BMPX #### [place] [address] Restaurant Cashier: Wu England MD Immature Granulocyte NOT REPORTED Normal 0 [facility] Comment on above: Performed By: #### C DP, ALCB, BMPX #### [place] [address] Restaurant Cashier: Wu England MD NRBC Automated NOT REPORTED Normal [place] Comment on above: Performed By: #### C DP, ALCB, BMPX #### [place] [address] Restaurant Cashier: Wu England MD Platelet Estimate NOT REPORTED Normal [facility] Comment on above: Performed By: #### C DP, ALCB, BMPX #### [place] [address] Restaurant Cashier: Wu England MD RBC morphology finding Nom (Bld) NOT REPORTED Normal [facility] Comment on above: Performed By: #### C DP, ALCB, BMPX #### [place] [address] Restaurant Cashier: Wu England MD WBC Morphology NOT REPORTED Normal [place] Comment on above: Performed By: #### C DP, ALCB, BMPX #### [place] [id number] [place] [id number] Restaurant Cashier: Wu England MD CT Cervical Spine WO Lisa ton 01-13-2021 [place], M[facility]pn Incoming Radiant Results From [employer] - 01/13/2021 10:49 PM EDT EXAMINATION: CT [...] likely degenerative in etiology. 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 [facility] Work Phone: 1. No acute abnormality of the cervical spine. 2. C2 on C3 and C3 on C4 anterolisthesis measuring 2-3 mm, likely degenerative. 3. 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 [employer] Phone: EXAMINATION: CT OF T HE CERVICAL [...] likely degenerative in etiology. DEGENERATIVE CHANGES: Multifocal teoc-hn-trsafqjv spondylosis is noted within the cervical spine without significant associated central canal stenosis/compromise identified. 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 SOFT TISSUES: There is no prevertebral soft tissue swelling. [employer] Phone: CT Head WO [place] 2020 Bilateral [...] 01/13/2021to be communicated to a licensed caregiver. [employer] Phone: Addendum by Lisa Raymond MD on 01/13/2021 10:19 PM ADDENDUM: Outside images are not available however based on the outside report which mentions chronic subdural, the subdural hematomas are acute and recent and related to current event. Critical results were called by Dr. Lisa Raymond MD to MAJOR RICKETTS on 01/13/2021 at 22:15. [employer] Phone: EXAMINATION: CT OF T HE HEAD [...] a fracture involving the right parietal bone. [employer] Phone: [place], pn Incoming Radiant Results From [employer] - 01/13/2021 9:51 PM EDT EXAMINATION: CT [...] 01/13/2021to be communicated to a licensed caregiver. [employer] Work Phone: Ethanolon 01-13-2021 Ethanol [Mass/Vol] 276 mg/dL High <10 [facility] Work Phone: Ethanol percent 0.276 % High <0.010 [facility] Work Phone: Ethanol Alcoholon 01-13-2021 Ethanol [Mass/Vol] 276 mg/dL High <10 [facility] Comment on above: Performed By: #### C DP, ALCB, BMPX #### [facility] [address] [place], [place] [id number] Restaurant Cashier: Wu England MD Ethanol percent 0.276 % High <0.010 [facility] Comment on above: Performed By: #### C DP, ALCB, BMPX #### [facility] [address] [place], [place] [id number] Restaurant Cashier: Wu England MD Hepatic Function Panelon Albumin [Mass/Vol] 3.8 g/dL 3.5 - 5.2 g/dL [facility] [employer] Phone: Albumin/Globulin [Mass ratio] 1.7 {ratio} [facility] Phone: ALP [Catalytic activity/Vol] 76 U/L 35 - 104 U/L [facility] [employer] Phone: ALT [Catalytic activity/Vol] 12 U/L 5 - 33 U/L [facility] [employer] Phone: AST [Catalytic activity/Vol] 25 U/L <32 [facility] [employer] Phone: Bilirubin Ql (U) 0.11 mg/dL Low 0.3 - 1.2 mg/dL [facility] [employer] Phone: Bilirubin, Indirect CANNOT BE CALCULATED 0.00 - 1.00 mg/dL [facility] [employer] Phone: Bilirubin.direct [Mass/Vol] mg/dL <0.31 mg/dL [facility] [employer] Phone: Globulin (S) [Mass/Vol] NOT REPORTED 1.5 - 3.8 g/dL [facility] [employer] Phone: Interpretation and review of laboratory results Abnormal [facility] Phone: Protein [Mass/Vol] 6.0 g/dL Low 6.4 - 8.3 g/dL Me [facility] [employer] Phone: Liver Profileon 01-13-2021 Globulin Fraction NOT REPORTED Normal 1.5-3.8 [facility] Comment on above: Performed By: #### L IVP #### [facility] [address] [place] [address] Restaurant Cashier: Wu England MD Otheron 01-13-2021 Interpretation and review of laboratory results Abnormal [facility] [employer] Phone: Immature granulocytes (Bld) [#/Vol] NOT REPORTED [facility] [employer] Phone: PTon 01-13-2021 INR Coag (PPP) [Relative time] 0.9 {INR} Normal [facility] Comment on above: Result Comment: Therapeutic Range: Moderate Anticoagulant Intensity: INR = 2.0-3.0 High Anticoagulant Intensity: INR = 2.5-3.5 Performed By: #### P T, PTT #### [address] [address] Restaurant Cashier: Wu England MD PT Coag (PPP) [Time] 9.8 s Normal 9.4-12.6 [facility] Comment on above: Performed By: #### P T, PTT #### [address] [address] Restaurant Cashier: Wu England MD [employer]INRon 01-13-2021 INR Coag (PPP) [Relative time] 0.9 {INR} [facility] [employer] Phone: Comment on above: Therapeutic Range: Moderate Anticoagulant Intensity: INR = 2.0-3.0 High Anticoagulant Intensity: INR = 2.5-3.5 PT Coag (PPP) [Time] 9.8 s [facility] [employer] Phone: Basic Metabolic Panelon - Calcium [Mass/Vol] 9.3 mg/dL Normal 8.4-10.4 [facility] Comment on above: Performed By: #### B MP3 #### [facility] [address] [place], [place] Glucose [Mass/Vol] 121 mg/dL High 70-100 [facility] Comment on above: Performed By: #### B MP3 #### [facility] [address] [place], [place] Anion gap [Moles/Vol] 8 mmol/L Normal 3-13 [facility] Comment on above: Performed By: #### B MP3 #### [facility] [address] [place], [place] CO2 [Moles/Vol] 21 mmol/L Low 22-30 [facility] Comment on above: Performed By: #### B MP3 #### [facility] [address] [place], [place] Creatinine [Mass/Vol] 0.53 mg/dL Normal 0.52-1.25 [facility] Comment on above: Performed By: #### B MP3 #### [facility] [address] [place], [place] eGFR OTHER > 90.0 Normal >60 [facility] Comment on above: Result Comment: KDIG [...] secretion. Performed By: #### B MP3 #### [facility] [address] [place] [address] GFR/1.73 sq M.predicted among blacks MDRD (S/P/Bld) [Vol rate/Area] mL/min/{1.73_m2} Normal >60 [facility] Comment on above: Performed By: #### B MP3 #### [facility] [address] [place] [address] Urea nitrogen [Mass/Vol] 4 mg/dL Low 7-20 [facility] Comment on above: Performed By: #### B MP3 #### [facility] [address] [place] [address] Potassium [Moles/Vol] 3.5 mmol/L Normal 3.5-5.1 [facility] Comment on above: Performed By: #### B MP3 #### [facility] [address] [place] [address] Chloride [Moles/Vol] 102 mmol/L Normal 98-107 [facility] Comment on above: Performed By: #### B MP3 #### [facility] [address] [place] [address] Sodium [Moles/Vol] 132 mmol/L Low 135-145 [facility] Comment on above: Performed By: #### B MP3 #### [facility] [address] [place] [address] Anion gap [Moles/Vol] 8 mmol/L 3 - 13 mmol/L [facility] Work Phone: Calcium [Mass/Vol] 9.3 mg/dL 8.4 - 10. 4 mg/dL [facility] Work Phone: Chloride [Moles/Vol] 102 mmol/L 98 - 107 mmol/L [facility] Work Phone: CO2 [Moles/Vol] 21 mmol/L Low 22 - 30 mmol/L [facility] Work Phone: Creatinine [Mass/Vol] 0.53 mg/dL 0.52 - 1.25 mg/dL [facility] Work Phone: EGFR IF NonAfrican Bermudian >90.0 >60 mL/min [facility] Work Phone: Comment on above: KDIGO guidelines [...] MDRD (S/P/Bld) [Vol rate/Area] mL/min/{1.73_m2} >60 mL/min [facility] Work Phone: [phone] Glucose [Mass/Vol] 121 mg/dL High 70 - 100 mg/dL [facility] Work Phone: Interpretation and review of laboratory results Abnormal [facility] Work Phone: [phone] Potassium [Moles/Vol] 3.5 mmol/L 3.5 - 5.1 mmol/L [facility] Work Phone: [phone] Sodium [Moles/Vol] 132 mmol/L Low 135 - 145 mmol/L [facility] Work Phone: [phone] Urea nitrogen [Mass/Vol] 4 mg/dL Low 7 - 20 mg/dL [facility] Work Phone: Test Performed by [employer], [address] [place] [address] [facility] Work Phone: Basic Metabolic Panelon 12-12 Calcium [Mass/Vol] 9.3 mg/dL Normal 8.4-10.4 [employer] Comment on above: Performed By: #### M G3, PHOS3, HEMDF, BMP3M #### [facility] [address] [place] [address] Glucose [Mass/Vol] 77 mg/dL Normal 70-100 [facility] Comment on above: Performed By: #### M G3, PHOS3, HEMDF, BMP3M #### [facility] [address] [place], [place] Anion gap [Moles/Vol] 6 mmol/L Normal 3-13 [facility] Comment on above: Performed By: #### M G3, PHOS3, HEMDF, BMP3M #### [facility] [address] [place] [address] CO2 [Moles/Vol] 24 mmol/L Normal 22-30 [facility] Comment on above: Performed By: #### M G3, PHOS3, HEMDF, BMP3M #### [place] [address] [place] [address] Creatinine [Mass/Vol] 0.51 mg/dL Low 0.52-1.25 [facility] Comment on above: Performed By: #### M G3, PHOS3, HEMDF, BMP3M #### [facility] [address] [place], [place] eGFR OTHER > 90.0 Normal >60 [facility] Comment on above: Result Comment: KDIG [...] #### M G3, PHOS3, HEMDF, BMP3M #### [facility] [address] [place], [place] GFR/1.73 sq M.predicted among blacks MDRD (S/P/Bld) [Vol rate/Area] mL/min/{1.73_m2} Normal >60 [facility] Comment on above: Performed By: #### M G3, PHOS3, HEMDF, BMP3M #### [facility] [address] [place], [place] Urea nitrogen [Mass/Vol] 4 mg/dL Low 7-20 [facility] Comment on above: Performed By: #### M G3, PHOS3, HEMDF, BMP3M #### [place] [address] [place], [place] Chloride [Moles/Vol] 105 mmol/L Normal 98-107 [facility] Comment on above: Performed By: #### M G3, PHOS3, HEMDF, BMP3M #### [place] [address] [place], [place] Potassium [Moles/Vol] 3.9 mmol/L Normal 3.5-5.1 [facility] Comment on above: Performed By: #### M G3, PHOS3, HEMDF, BMP3M #### [place] [address] [place], [place] Sodium [Moles/Vol] 134 mmol/L Low 135-145 [facility] Comment on above: Performed By: #### M G3, PHOS3, HEMDF, BMP3M #### [place] [address] [place], [place] Anion gap [Moles/Vol] 6 mmol/L 3 - 13 mmol/L [facility] Work Phone: Calcium [Mass/Vol] 9.3 mg/dL 8.4 - 10. 4 mg/dL [facility] Work Phone: Chloride [Moles/Vol] 105 mmol/L 98 - 107 mmol/L [facility] Work Phone: CO2 [Moles/Vol] 24 mmol/L 22 - 30 mmol/L [facility] Work Phone: Creatinine [Mass/Vol] 0.51 mg/dL Low 0.52 - 1.25 mg/dL [facility] Work Phone: EGFR IF NonAfrican [place]ermudian >90.0 >60 mL/min [facility] Work Phone: Comment on above: KDIGO guidelines [...] MDRD (S/P/Bld) [Vol rate/Area] mL/min/{1.73_m2} >60 mL/min [facility] Work Phone: Glucose [Mass/Vol] 77 mg/dL 70 - 100 mg/dL [facility] Work Phone: Interpretation and review of laboratory results Abnormal [facility] Work Phone: Potassium [Moles/Vol] 3.9 mmol/L 3.5 - 5.1 mmol/L [facility] Work Phone: [phone] Sodium [Moles/Vol] 134 mmol/L Low 135 - 145 mmol/L [facility] Work Phone: Urea nitrogen [Mass/Vol] 4 mg/dL Low 7 - 20 mg/dL [facility] Work Phone: Test Performed by [employer], [address] [place] [address] [address] [facility] Work Phone: COVID-19on 12-26-2020 SARS-CoV-[address] [facility] Work Phone: Comment on above: Not Detected. Expected Result: Not Detected _ Real-time, RT-PCR performed on the [employer] System by the [facility] [employer] Negative results do not preclude SARS-CoV-2 infection and should not be used as the sole basis for treatment or other patient management decisions. This assay was developed by [employer] and distributed under an Emergency Use Authorization (EUA) granted by the FDA for the qualitative detection of SARS-CoV-2 nucleic acid. Provider and patient fact sheets can be found at https://www.Eqiancheng.com.gov/media/086228/download and https://www.Eqiancheng.com.gov/media/761286/download. Test Performed by [facility] [employer] [facility], [address] [place] [address] [id number] 12-26-2020 SARS-CoV-2 (COVID-19) RNA CY+probe Ql (Unsp spec) SARS-CoV-2 --> Status: F Not Detected. Expected Result: Not Detected _ Real-time, RT-PCR performed on the [employer] System by the [facility] Negative results do not preclude SARS-CoV-2 infection and should not be used as the sole basis for treatment or other patient management decisions. This assay was developed by [employer] and distributed under an Emergency Use Authorization (EUA) granted by the FDA for the qualitative detection of SARS-CoV-2 nucleic acid. Provider and patient fact sheets can be found at https://www.Eqiancheng.com.gov/sd caio/124555/download and https://www.Eqiancheng.com.gov/sd caio/337937/download. Expected Result: Not Detected _ Real-time, RT-PCR performed on the [employer] System by the [facility] Negative results do not preclude SARS-CoV-2 infection and should not be used as the sole basis for treatment or other patient management decisions. This assay was developed by [employer] and distributed under an Emergency Use Authorization (EUA) granted by the FDA for the qualitative detection of SARS-CoV-2 nucleic acid. Provider and patient fact sheets can be found at https://www.Eqiancheng.com.gov/me caio/761012/download and https://www.Eqiancheng.com.gov/[employer] caio/120724/download. Normal [facility] Comment on above: Performed By: #### M G3, PHOS3, HEMDF, BMP3M #### [facility] [address] [place] [address] BASIC METABOLIC PANELon 12-12 Anion gap [Moles/Vol] 9 mmol/L 3 - 13 mmol/L [facility] Work Phone: Calcium [Mass/Vol] 9.4 mg/dL 8.4 - 10. 4 mg/dL [facility] Work Phone: Chloride [Moles/Vol] 104 mmol/L 98 - 107 mmol/L [facility] Work Phone: CO2 [Moles/Vol] 25 mmol/L 22 - 30 mmol/L [facility] Work Phone: Creatinine [Mass/Vol] 0.49 mg/dL Low 0.52 - 1.25 mg/dL [facility] Work Phone: EGFR IF NonAfrican Bermudian >90.0 >60 mL/min [facility] Work Phone: Comment on above: KDIGO guidelines [...] MDRD (S/P/Bld) [Vol rate/Area] mL/min/{1.73_m2} >60 mL/min [facility] Work Phone: Glucose [Mass/Vol] 92 mg/dL 70 - 100 mg/dL [facility] Work Phone: [phone] Interpretation and review of laboratory results Abnormal [facility] Work Phone: [phone] Potassium [Moles/Vol] 4.1 mmol/L 3.5 - 5.1 mmol/L [facility] Work Phone: [phone] Sodium [Moles/Vol] 137 mmol/L 135 - 145 mmol/L [facility] Work Phone: [phone] Urea nitrogen [Mass/Vol] 8 mg/dL 7 - 20 mg/dL [facility] Work Phone: [phone] Test Performed by [facility], [address] [place] [address] [facility] Work Phone: Basic Metabolic Panelon 12-12 Calcium [Mass/Vol] 9.4 mg/dL Normal 8.4-10.4 [facility] Comment on above: Performed By: #### M G3, PHOS3, HEMDF, BMP3M #### [address] [address] Glucose [Mass/Vol] 92 mg/dL Normal 70-100 [facility] Comment on above: Performed By: #### M G3, PHOS3, HEMDF, BMP3M #### [address] [address] Urea nitrogen [Mass/Vol] 8 mg/dL Normal 7-20 [facility] Comment on above: Performed By: #### M G3, PHOS3, HEMDF, BMP3M #### [address] [address] Anion gap [Moles/Vol] 9 mmol/L Normal 3-13 [facility] Comment on above: Performed By: #### M G3, PHOS3, HEMDF, BMP3M #### [address] [address] CO2 [Moles/Vol] 25 mmol/L Normal 22-30 [facility] Comment on above: Performed By: #### M G3, PHOS3, HEMDF, BMP3M #### [address] [address] Creatinine [Mass/Vol] 0.49 mg/dL Low 0.52-1.25 [facility] Comment on above: Performed By: #### M G3, PHOS3, HEMDF, BMP3M #### [address] eGFR OTHER > 90.0 Normal >60 [facility] Comment on above: Result Comment: KDIG [...] #### M G3, PHOS3, HEMDF, BMP3M #### [address] GFR/1.73 sq M.predicted among blacks MDRD (S/P/Bld) [Vol rate/Area] mL/min/{1.73_m2} Normal >60 [facility] Comment on above: Performed By: #### M G3, PHOS3, HEMDF, BMP3M #### [address] Chloride [Moles/Vol] 104 mmol/L Normal 98-107 [facility] Comment on above: Performed By: #### M G3, PHOS3, HEMDF, BMP3M #### [address] Potassium [Moles/Vol] 4.1 mmol/L Normal 3.5-5.1 [facility] Comment on above: Performed By: #### M G3, PHOS3, HEMDF, BMP3M #### [facility] [address] [place], [place] Sodium [Moles/Vol] 137 mmol/L Normal 135-145 [facility] Comment on above: Performed By: #### M G3, PHOS3, HEMDF, BMP3M #### [facility] [address] [place] [address] Basic Metabolic Panelon - Anion gap [Moles/Vol] 10 mmol/L Normal 3-13 [facility] Comment on above: Performed By: #### B MP3 #### [facility] [address] [place] Calcium [Mass/Vol] 9.4 mg/dL Normal 8.4-10.4 [facility] Comment on above: Performed By: #### B MP3 #### [facility] [address] [place] CO2 [Moles/Vol] 22 mmol/L Normal 22-30 [facility] Comment on above: Performed By: #### B MP3 #### [facility] [address] [place], [place] Glucose [Mass/Vol] 126 mg/dL High 70-100 [facility] Comment on above: Performed By: #### B MP3 #### [facility] [address] [place] Urea nitrogen [Mass/Vol] 10 mg/dL Normal 7-20 [facility] Comment on above: Performed By: #### B MP3 #### [facility] [address] [place], [place] Creatinine [Mass/Vol] 0.50 mg/dL Low 0.52-1.25 [facility] Comment on above: Performed By: #### B MP3 #### [facility] [address] [place], [place] eGFR OTHER > 90.0 Normal >60 [facility] Comment on above: Result Comment: KDIG [...] secretion. Performed By: #### B MP3 #### [address] GFR/1.73 sq M.predicted among blacks MDRD (S/P/Bld) [Vol rate/Area] mL/min/{1.73_m2} Normal >60 [facility] Comment on above: Performed By: #### B MP3 #### [place] [address] [place], [place] Chloride [Moles/Vol] 104 mmol/L Normal 98-107 [facility] Comment on above: Performed By: #### B MP3 #### [address] Potassium [Moles/Vol] 4.1 mmol/L Normal 3.5-5.1 [facility] Comment on above: Result Comment: Slig htly hemolysed, interpret with caution. Performed By: #### B MP3 #### [place] [address] [place], [place] Sodium [Moles/Vol] 135 mmol/L Normal 135-145 [facility] Comment on above: Performed By: #### B MP3 #### [address] Anion gap [Moles/Vol] 10 mmol/L 3 - 13 mmol/L [facility] Work Phone: Calcium [Mass/Vol] 9.4 mg/dL 8.4 - 10. 4 mg/dL [facility] Work Phone: Chloride [Moles/Vol] 104 mmol/L 98 - 107 mmol/L [facility] Work Phone: [phone] CO2 [Moles/Vol] 22 mmol/L 22 - 30 mmol/L [facility] Work Phone: [phone] Creatinine [Mass/Vol] 0.5 mg/dL Low 0.52 - 1.25 mg/dL [facility] Work Phone: [phone] EGFR IF NonAfrican Bermudian >90.0 >60 mL/min [facility] Work Phone: [phone] Comment on above: KDIGO guidelines pro vide [...] rate/Area] mL/min/{1.73_m2} >60 mL/min [facility] Work Phone: [phone] Glucose [Mass/Vol] 126 mg/dL High 70 - 100 mg/dL [facility] Work Phone: [phone] Interpretation and review of laboratory results Abnormal [facility] Work Phone: [phone] Potassium [Moles/Vol] 4.1 mmol/L 3.5 - 5.1 mmol/L [facility] Work Phone: [phone] Comment on above: Slightly hemolysed, interpret with caution. Sodium [Moles/Vol] 135 mmol/L 135 - 145 mmol/L [facility] Work Phone: [phone] Urea nitrogen [Mass/Vol] 10 mg/dL 7 - 20 mg/dL [facility] Work Phone: Test Performed by [employer], [address] [place] [address] [facility] Work Phone: [phone] COVID-19on 12-20-2020 SARS-CoV-[address] [facility] [facility] Work Phone: Comment on above: Not Detected. Expected Result: Not Detected _ Real-time, RT-PCR performed on the [employer] System by the [facility] Negative results do not preclude SARS-CoV-2 infection and should not be used as the sole basis for treatment or other patient management decisions. This assay was developed and its performance characteristics determined by the [facility] [employer]. The [place]. S. Food and Drug Administration has not approved or cleared this test; however, FDA clearance or approval is not currently required for clinical use. Test Performed by [employer], [address] [place] [address] [id number] 12-20-2020 SARS-CoV-2 (COVID-19) RNA CY+probe Ql (Unsp spec) SARS-CoV-2 --> Status: F Not Detected. Expected Result: Not Detected _ Real-time, RT-PCR performed on the [employer] System by the [facility] Negative results do not preclude SARS-CoV-2 infection and should not be used as the sole basis for treatment or other patient management decisions. This assay was developed and its performance characteristics determined by the [facility] [employer] [facility]. The [place]. [place]. Food and Drug Administration has not approved or cleared this test; however, FDA clearance or approval is not currently required for clinical use. Expected Result: Not Detected _ Real-time, RT-PCR performed on the [employer] System by the [facility] Negative results do not preclude SARS-CoV-2 infection and should not be used as the sole basis for treatment or other patient management decisions. This assay was developed and its performance characteristics determined by the [facility]. The [place]. S. Food and Drug Administration has not approved or cleared this test; however, FDA clearance or approval is not currently required for clinical use. Normal [facility] [facility] Comment on above: Performed By: #### A PTT, FIBGN, LDH3, DDI2, B12, CMP3, FERR3, HEMDF, CRP2, PT, FOLT3 #### [employer] [address] [place] [phone] #### [id number] #### [facility] [address] [place] [address] Sodiumon 12-19-2020 Sodium [Moles/Vol] 131 mmol/L Low 135-145 [facility] Comment on above: Performed By: #### N A3 #### [employer] [facility] [place] [address] Interpretation and review of laboratory results Abnormal [facility] Work Phone: [phone] Sodium [Moles/Vol] 131 mmol/L Low 135 - 145 mmol/L [facility] Work Phone: [phone] Test [facility] by [facility] [place] [address] [facility] Work Phone: [phone] Basic Metabolic Panelon Anion gap [Moles/Vol] 6 mmol/L Normal 3-13 [facility] Work Phone: [phone] Comment on above: Performed By: #### B MP3 #### [employer] [facility] [place] [address] Calcium [Mass/Vol] 8.9 mg/dL Normal 8.4-10.4 [facility] Work Phone: [phone] Comment on above: Performed By: #### B MP3 #### [employer] [facility] [place] [address] CO2 [Moles/Vol] 25 mmol/L Normal 22-30 [facility] Work Phone: [phone] Comment on above: Performed By: #### B MP3 #### [employer] [facility] [place] [address] Glucose [Mass/Vol] 95 mg/dL Normal 70-100 [facility] Work Phone: [phone] Comment on above: Performed By: #### B MP3 #### [employer] [facility] [place] [address] Urea nitrogen [Mass/Vol] 14 mg/dL Normal 7-20 [facility] Work Phone: Comment on above: Performed By: #### B MP3 #### [employer] [facility] [place] [address] Creatinine [Mass/Vol] 0.42 mg/dL Low 0.52-1.25 [facility] Work Phone: Comment on above: Performed By: #### B MP3 #### [place] [place] [address] [place] [address] eGFR OTHER > 90.0 Normal >60 [facility] Comment on above: Result Comment: KDIG [...] secretion. Performed By: #### B MP3 #### [employer] [facility] [address] [place] GFR/1.73 sq M predicted among blacks MDRD (S/P/Bld) [Vol rate/Area] mL/min/{1.73_m2} Normal >60 [facility] Work Phone: Comment on above: Performed By: #### B MP3 #### [place] [place] [address] [place] [address] Chloride [Moles/Vol] 98 mmol/L Normal 98-107 [facility] Work Phone: Comment on above: Performed By: #### B MP3 #### [place] [address] [place] [address] Potassium [Moles/Vol] 3.8 mmol/L Normal 3.5-5.1 [facility] Work Phone: Comment on above: Performed By: #### B MP3 #### [employer] [address] [place] [phone] Sodium [Moles/Vol] 129 mmol/L Low 135-145 [facility] Work Phone: Comment on above: Performed By: #### B MP3 #### [employer] [address] [place] [phone] EGFR IF NonAfrican Bermudian >90.0 >60 mL/min [facility] Work Phone: Comment on above: KDIGO guidelines [...] Interpretation and review of laboratory results Abnormal [facility] Work Phone: Test Performed by [employer] [address] [facility] Work Phone: Basic Metabolic Panelon 03-0 -2020 Calcium [Mass/Vol] 8.9 mg/dL Normal 8.4-10.4 [facility] Comment on above: Performed By: #### B MP3 #### [employer] [address] [place] [phone] Glucose [Mass/Vol] 93 mg/dL Normal 70-100 [facility] Comment on above: Performed By: #### B MP3 #### [employer] [address] [place] [address] Urea nitrogen [Mass/Vol] 11 mg/dL Normal 7-20 [facility] Comment on above: Performed By: #### B MP3 #### [facility] [address] [place], [place] Anion gap [Moles/Vol] 7 mmol/L Normal 3-13 [facility] Comment on above: Performed By: #### B MP3 #### [facility] [address] [place], [place] CO2 [Moles/Vol] 25 mmol/L Normal 22-30 [facility] Comment on above: Performed By: #### B MP3 #### [facility] [address] [place], [place] Creatinine [Mass/Vol] 0.42 mg/dL Low 0.52-1.25 [facility] Comment on above: Performed By: #### B MP3 #### [facility] [address] [place], [place] eGFR OTHER > 90.0 Normal >60 [facility] Comment on above: Result Comment: KDIG [...] secretion. Performed By: #### B MP3 #### [facility] [address] [place], [place] GFR/1.73 sq M.predicted among blacks MDRD (S/P/Bld) [Vol rate/Area] mL/min/{1.73_m2} Normal >60 [facility] Comment on above: Performed By: #### B MP3 #### [facility] [address] [place] [address] Chloride [Moles/Vol] 96 mmol/L Low 98-107 [facility] Comment on above: Performed By: #### B MP3 #### [facility] [address] [place] [address] Potassium [Moles/Vol] 3.7 mmol/L Normal 3.5-5.1 [facility] Comment on above: Performed By: #### B MP3 #### [facility] [address] [place] [address] Sodium [Moles/Vol] 127 mmol/L Low 135-145 [facility] Comment on above: Performed By: #### B MP3 #### [facility] [address] [place] [address] Anion gap [Moles/Vol] 7 mmol/L 3 - 13 mmol/L [facility] Work Phone: Calcium [Mass/Vol] 8.9 mg/dL 8.4 - 10. 4 mg/dL [facility] Work Phone: Chloride [Moles/Vol] 96 mmol/L Low 98 - 107 mmol/L [facility] Work Phone: CO2 [Moles/Vol] 25 mmol/L 22 - 30 mmol/L [facility] Work Phone: Creatinine [Mass/Vol] 0.42 mg/dL Low 0.52 - 1.25 mg/dL [facility] Work Phone: EGFR IF NonAfrican [place]ian >90.0 >60 mL/min [facility] Work Phone: Comment on above: KDIGO guidelines [...] MDRD (S/P/Bld) [Vol rate/Area] mL/min/{1.73_m2} >60 mL/min [facility] Work Phone: [phone] Glucose [Mass/Vol] 93 mg/dL 70 - 100 mg/dL [facility] Work Phone: [phone] Interpretation and review of laboratory results Abnormal [facility] Work Phone: [phone] Potassium [Moles/Vol] 3.7 mmol/L 3.5 - 5.1 mmol/L [facility] Work Phone: [phone] Sodium [Moles/Vol] 127 mmol/L Low 135 - 145 mmol/L [facility] Work Phone: [phone] Urea nitrogen [Mass/Vol] 11 mg/dL 7 - 20 mg/dL [facility] Work Phone: Test Performed by [facility], [address] [place] [address] [facility] Work Phone: Basic Metabolic Panelon 03-0 -2020 Anion gap [Moles/Vol] 6 mmol/L Normal 3-13 [facility] Comment on above: Performed By: #### M G3, PHOS3, HEMDF, BMP3M #### [address] [address] Calcium [Mass/Vol] 8.4 mg/dL Normal 8.4-10.4 [facility] Comment on above: Performed By: #### M G3, PHOS3, HEMDF, BMP3M #### [address] [address] CO2 [Moles/Vol] 24 mmol/L Normal 22-30 [facility] Comment on above: Performed By: #### M G3, PHOS3, HEMDF, BMP3M #### [facility] [address] [place], [place] Glucose [Mass/Vol] 90 mg/dL Normal 70-100 [facility] Comment on above: Performed By: #### M G3, PHOS3, HEMDF, BMP3M #### [facility] [address] [place] [address] Urea nitrogen [Mass/Vol] 9 mg/dL Normal 7-20 [facility] Comment on above: Performed By: #### M G3, PHOS3, HEMDF, BMP3M #### [facility] [address] [place], [place] Creatinine [Mass/Vol] 0.51 mg/dL Low 0.52-1.25 [facility] Comment on above: Performed By: #### M G3, PHOS3, HEMDF, BMP3M #### [facility] [address] [place], [place] eGFR OTHER > 90.0 Normal >60 [facility] Comment on above: Result Comment: KDIG [...] #### M G3, PHOS3, HEMDF, BMP3M #### [facility] [address] [place], [place] GFR/1.73 sq M.predicted among blacks MDRD (S/P/Bld) [Vol rate/Area] mL/min/{1.73_m2} Normal >60 [facility] Comment on above: Performed By: #### M G3, PHOS3, HEMDF, BMP3M #### [facility] [address] [place], [place] Potassium [Moles/Vol] 3.7 mmol/L Normal 3.5-5.1 [facility] Comment on above: Performed By: #### M G3, PHOS3, HEMDF, BMP3M #### [facility] [address] [place], [place] Sodium [Moles/Vol] 125 mmol/L Low 135-145 [facility] Comment on above: Performed By: #### M G3, PHOS3, HEMDF, BMP3M #### [address] [address] [place], [place] Chloride [Moles/Vol] 95 mmol/L Low 98-107 [facility] Comment on above: Performed By: #### M G3, PHOS3, HEMDF, BMP3M #### [address] [place] Anion gap [Moles/Vol] 6 mmol/L 3 - 13 mmol/L [facility] Work Phone: Calcium [Mass/Vol] 8.4 mg/dL 8.4 - 10. 4 mg/dL [facility] Work Phone: Chloride [Moles/Vol] 95 mmol/L Low 98 - 107 mmol/L [facility] Work Phone: CO2 [Moles/Vol] 24 mmol/L 22 - 30 mmol/L [facility] Work Phone: Creatinine [Mass/Vol] 0.51 mg/dL Low 0.52 - 1.25 mg/dL [facility] Work Phone: EGFR IF NonAfrican [place]ian >90.0 >60 mL/min [facility] Work Phone: Comment on above: KDIGO guidelines [...] rate/Area] mL/min/{1.73_m2} >60 mL/min [facility] Work Phone: [phone] Glucose [Mass/Vol] 90 mg/dL 70 - 100 mg/dL [facility] Work Phone: Interpretation and review of laboratory results Abnormal [facility] Work Phone: [phone] Potassium [Moles/Vol] 3.7 mmol/L 3.5 - 5.1 mmol/L [facility] Work Phone: [phone] Sodium [Moles/Vol] 125 mmol/L Low 135 - 145 mmol/L [facility] Work Phone: [phone] Urea nitrogen [Mass/Vol] 9 mg/dL 7 - 20 mg/dL [facility] Work Phone: [phone] Magnesiumon 12-16-2020 Magnesium [Mass/Vol] 1.9 mg/dL Normal 1.6-2.3 [facility] [employer] Comment on above: Performed By: #### M G3, PHOS3, HEMDF, BMP3M #### [employer] [address] [place] [address] Magnesium [Mass/Vol] 1.9 mg/dL 1.6 - 2.3 mg/dL [facility] Work Phone: [phone] Osmolalityon 12-16-2020 Interpretation and review of laboratory results Abnormal [facility] Work Phone: [phone] Serum Osmolality 263 mosm/kg Low 280 - 300 mosm/kg [facility] Work Phone: Test Performed by [employer], [address] [place] [address] [employer] Work Phone: Osmolality,Serumon 1 Osmolality,Serum 263 mosm/kg Low 280-300 [employer] Comment on above: Performed By: #### M G3, PHOS3, HEMDF, BMP3M #### [employer] [facility] [place] [address] Otheron 12-16-2020 Test Performed by [employer], [facility] [place] [address] [facility] Work Phone: BASIC METABOLIC PANELon Anion gap [Moles/Vol] 9 mmol/L 3 - 13 mmol/L [facility] Work Phone: Calcium [Mass/Vol] 8.9 mg/dL 8.4 - 10. 4 mg/dL [employer] Work Phone: Chloride [Moles/Vol] 96 mmol/L Low 98 - 107 mmol/L [facility] Work Phone: CO2 [Moles/Vol] 21 mmol/L Low 22 - 30 mmol/L [employer] Work Phone: Creatinine [Mass/Vol] 0.46 mg/dL Low 0.52 - 1.25 mg/dL [employer] Work Phone: EGFR IF NonAfrican [place]ian >90.0 >60 mL/min [employer] Work Phone: Comment on above: KDIGO guidelines [...] MDRD (S/P/Bld) [Vol rate/Area] mL/min/{1.73_m2} >60 mL/min [facility] Work Phone: Glucose [Mass/Vol] 113 mg/dL High 70 - 100 mg/dL [facility] Work Phone: Interpretation and review of laboratory results Abnormal [facility] Work Phone: Potassium [Moles/Vol] 4.1 mmol/L 3.5 - 5.1 mmol/L [facility] Work Phone: [phone] Sodium [Moles/Vol] 126 mmol/L Low 135 - 145 mmol/L [facility] Work Phone: Urea nitrogen [Mass/Vol] 7 mg/dL 7 - 20 mg/dL [facility] Work Phone: Test Performed by [facility], [address] [place] [address] [facility] Work Phone: Basic Metabolic Panelon 03-0 -2020 Calcium [Mass/Vol] 8.9 mg/dL Normal 8.4-10.4 [facility] Comment on above: Performed By: #### B MP3 #### [address] [place] [address] Glucose [Mass/Vol] 113 mg/dL High 70-100 [facility] Comment on above: Performed By: #### B MP3 #### [address] [place] [address] Urea nitrogen [Mass/Vol] 7 mg/dL Normal 7-20 [facility] Comment on above: Performed By: #### B MP3 #### [address] [address] [place] [address] Anion gap [Moles/Vol] 9 mmol/L Normal 3-13 [facility] Comment on above: Performed By: #### B MP3 #### [address] [place] [address] CO2 [Moles/Vol] 21 mmol/L Low 22-30 [facility] Comment on above: Performed By: #### B MP3 #### [facility] [address] [place], [place] Creatinine [Mass/Vol] 0.46 mg/dL Low 0.52-1.25 [facility] Comment on above: Performed By: #### B MP3 #### [facility] [address] [place], [place] eGFR OTHER > 90.0 Normal >60 [facility] Comment on above: Result Comment: KDIG [...] secretion. Performed By: #### B MP3 #### [facility] [address] [place], [place] GFR/1.73 sq M.predicted among blacks MDRD (S/P/Bld) [Vol rate/Area] mL/min/{1.73_m2} Normal >60 [facility] Comment on above: Performed By: #### B MP3 #### [facility] [address] [place], [place] Potassium [Moles/Vol] 4.1 mmol/L Normal 3.5-5.1 [facility] Comment on above: Performed By: #### B MP3 #### [facility] [address] [place], [place] Chloride [Moles/Vol] 96 mmol/L Low 98-107 [facility] Comment on above: Performed By: #### B MP3 #### [facility] [address] [place], [place] Sodium [Moles/Vol] 126 mmol/L Low 135-145 [facility] Comment on above: Performed By: #### B MP3 #### [facility] [address] [place], [place] Anion gap [Moles/Vol] 6 mmol/L Normal 3-13 [facility] Comment on above: Performed By: #### B MP3 #### [facility] [address] [place], [place] Calcium [Mass/Vol] 8.4 mg/dL Normal 8.4-10.4 [facility] Comment on above: Performed By: #### B MP3 #### [facility] [address] [place], [place] CO2 [Moles/Vol] 22 mmol/L Normal 22-30 [facility] Comment on above: Performed By: #### B MP3 #### [facility] [address] [place], [place] Glucose [Mass/Vol] 91 mg/dL Normal 70-100 [facility] Comment on above: Performed By: #### B MP3 #### [facility] [address] [place] Urea nitrogen [Mass/Vol] 7 mg/dL Normal 7-20 [facility] Comment on above: Performed By: #### B MP3 #### [facility] [address] [place] Creatinine [Mass/Vol] 0.42 mg/dL Low 0.52-1.25 [facility] Comment on above: Performed By: #### B MP3 #### [facility] [address] [place], [place] eGFR OTHER > 90.0 Normal >60 [facility] Comment on above: Result Comment: KDIG [...] secretion. Performed By: #### B MP3 #### [address] [address] [place] [address] GFR/1.73 sq M.predicted among blacks MDRD (S/P/Bld) [Vol rate/Area] mL/min/{1.73_m2} Normal >60 [facility] Comment on above: Performed By: #### B MP3 #### [address] [address] [place] [address] Potassium [Moles/Vol] 3.6 mmol/L Normal 3.5-5.1 [facility] Comment on above: Performed By: #### B MP3 #### [address] [address] [place] [address] Sodium [Moles/Vol] 125 mmol/L Low 135-145 [facility] Comment on above: Performed By: #### B MP3 #### [address] [address] [place] [address] Chloride [Moles/Vol] 96 mmol/L Low 98-107 [facility] Comment on above: Performed By: #### B MP3 #### [address] [address] Anion gap [Moles/Vol] 6 mmol/L 3 - 13 mmol/L [facility] Work Phone: Calcium [Mass/Vol] 8.4 mg/dL 8.4 - 10. 4 mg/dL [facility] Work Phone: Chloride [Moles/Vol] 96 mmol/L Low 98 - 107 mmol/L [facility] Work Phone: CO2 [Moles/Vol] 22 mmol/L 22 - 30 mmol/L [facility] Work Phone: [phone] Creatinine [Mass/Vol] 0.42 mg/dL Low 0.52 - 1.25 mg/dL [facility] Work Phone: [phone] EGFR IF NonAfrican [place]ian >90.0 >60 mL/min [facility] Work Phone: [phone] Comment on above: KDIGO guidelines pro vide [...] MDRD (S/P/Bld) [Vol rate/Area] mL/min/{1.73_m2} >60 mL/min [facility] Work Phone: [phone] Glucose [Mass/Vol] 91 mg/dL 70 - 100 mg/dL [facility] Work Phone: [phone] Potassium [Moles/Vol] 3.6 mmol/L 3.5 - 5.1 mmol/L [facility] Work Phone: [phone] Sodium [Moles/Vol] 125 mmol/L Low 135 - 145 mmol/L [facility] Work Phone: [phone] Urea nitrogen [Mass/Vol] 7 mg/dL 7 - 20 mg/dL [facility] Work Phone: [phone] Magnesiumon 12-15-2020 Magnesium [Mass/Vol] 1.5 mg/dL Low 1.6-2.3 [facility] Comment on above: Performed By: #### B MP3 #### [employer] [address] [place] [address] Magnesium [Mass/Vol] 1.5 mg/dL Low 1.6 - 2.3 mg/dL [facility] Work Phone: Osmolality, Urineon 12-16-19 21 Interpretation and review of laboratory results Abnormal [facility] Work Phone: [phone] Osmolality (U) [Osmolality] 244 mosm/kg Low 300 - 1000 mosm/kg [facility] Work Phone: [phone] Test Performed by [employer], [address] [place] [id number] [place], [place] [address]A Work Phone: Osmolality,Urineon Osmolality,Urine 244 mosm/kg Low 300-1000 [facility] Comment on above: Performed By: #### B MP3 #### [employer] [facility] [address] [place] [address] Otheron 12-15-2020 Interpretation and review of laboratory results Abnormal [facility] Work Phone: [phone] Test Performed by [employer], [address] [place] [id number] [place], [place] [address] Work Phone: Sodium, Ur Randomon 12-16-19 21 Sodium [Moles/Vol] 75 mmol/L Normal 30-90 [facility] Comment on above: Performed By: #### M G3, PHOS3, HEMDF, BMP3M #### [employer] [address] [place] [address] Sodium, Urine, Randomon Sodium (U) [Moles/Vol] 75 mmol/L 30 - 90 mmol/L [facility] Work Phone: [phone] Test Performed by [employer], [address] [place] [address] [employer] Work Phone: [phone] Acute Hepatitis Panelon Hep B Core IgM Not detected Normal Not-Detected [facility] Comment on above: Performed By: #### M G3, PHOS3, HEMDF, BMP3M #### [employer] [address] [place] [phone] Hep A Virus Ab,IgM Not detected Normal Not-Detected [facility] Comment on above: Performed By: #### M G3, PHOS3, HEMDF, BMP3M #### [facility] [address] [place] [address] Hep C Antibody Not detected Normal Not-Detected [facility] Comment on above: Result Comment: Lucia ents with DETECTED Hepatitis C Ab results should have a new specimen submitted for supplemental testing with a Hepatitis C Quantitative RNA assay (viral load), if clinically indicated. Performed By: #### M G3, PHOS3, HEMDF, BMP3M #### [facility] [address] [place] [address] Hep B Surface Ag Not detected Normal Not-Detected [facility] Comment on above: Performed By: #### M G3, PHOS3, HEMDF, BMP3M #### [facility] [address] [place], [place] CBC Auto Differentialon 03-0 Absolute Baso # 0.1 10*3/uL 0.0 - 0.2 10*3/uL [employer] Work Phone: [phone] Absolute Neut # 3.5 10*3/uL 1.8 - 7.0 10*3/uL [employer] Work Phone: 22 Basophils/100 WBC (Bld) 1.3 % 0.0 - 2.0 % [employer] Work Phone: 22 Eosinophils (Bld) [#/Vol] 0.1 10*3/uL 0.0 - 0.5 10*3/uL [employer] Work Phone: 22 Eosinophils/100 WBC (Bld) 1.7 % 1.0 - 6.0 % [employer] Work Phone: 22 Erythrocyte distribution width (RBC) [Ratio] 14.6 % High 11.5 - 14.5 % [employer] Work Phone: 22 Granulocytes/100 WBC (Bld) 60.9 % 40.0 - 80.0 % [employer] Work Phone: 22 Hematocrit (Bld) [Volume fraction] 34.9 % Low 35.0 - 47.0 % [employer] Work Phone: 22 Hemoglobin (Bld) [Mass/Vol] 11.9 g/dL 11.7 - 16.0 g/dL [employer] Work Phone: Interpretation and review of laboratory results Abnormal [employer] Work Phone: Lymphocytes (Bld) [#/Vol] 1.5 10*3/uL 1.0 - 4.3 10*3/uL [employer] Work Phone: Lymphocytes/100 WBC (Bld) 26.5 % 20.0 - 40.0 % [employer] Work Phone: 1 MCH (RBC) [Entitic mass] 34.5 pg High 26.0 - 34.0 pg [employer] Work Phone: MCHC (RBC) [Mass/Vol] 34.1 % 32.0 - 36.0 % [employer] Phone: MCV (RBC) [Entitic vol] 101.2 fL High 79.0 - 98.0 fL [employer] Work Phone: Monocytes (Bld) [#/Vol] 0.6 10*3/uL 0.0 - 0.8 10*3/uL [employer] Work Phone: 1 Monocytes/100 WBC (Bld) 9.6 % 2.0 - 10.0 % [employer] Work Phone: 1 Platelet mean volume (Bld) [Entitic vol] 9.0 fL 7.4 - 10.4 fL [employer] Work Phone: Platelets (Bld) [#/Vol] 168 10*3/uL 140 - 440 10*3/uL [employer] Work Phone: RBC (Bld) [#/Vol] 3.45 10*6/uL Low 3.80 - 5.2 0 10*6/uL [employer] Work Phone: WBC (Bld) [#/Vol] 5.8 10*3/uL 3.6 - 10.7 10*3/uL [employer] Work Phone: Test Performed by [id number] [place] [address] Work Phone: Comp Metabolic Panelon 12-14 ALP [Catalytic activity/Vol] 67 U/L Normal 38-126 [facility] Comment on above: Performed By: #### M G3, PHOS3, HEMDF, BMP3M #### [address] [address] [place], [place] ALT [Catalytic activity/Vol] 24 U/L Normal 0-34 [facility] Comment on above: Result Comment: The ALT test is performed by an updated assay method. Please note that the reference intervals have been changed and are now sex specific. Performed By: #### M G3, PHOS3, HEMDF, BMP3M #### [address] Calcium [Mass/Vol] 8.5 mg/dL Normal 8.4-10.4 [facility] Comment on above: Performed By: #### M G3, PHOS3, HEMDF, BMP3M #### [address] [place], [place] Glucose [Mass/Vol] 87 mg/dL Normal 70-100 [facility] Comment on above: Performed By: #### M G3, PHOS3, HEMDF, BMP3M #### [address] Protein [Mass/Vol] 5.7 g/dL Low 6.3-8.2 [facility] Comment on above: Performed By: #### M G3, PHOS3, HEMDF, BMP3M #### [address] [place], [place] Urea nitrogen [Mass/Vol] 13 mg/dL Normal 7-20 [facility] Comment on above: Performed By: #### M G3, PHOS3, HEMDF, BMP3M #### [address] [place] Anion gap [Moles/Vol] 4 mmol/L Normal 3-13 [facility] Comment on above: Performed By: #### M G3, PHOS3, HEMDF, BMP3M #### [address] [place], [place] AST [Catalytic activity/Vol] 41 U/L Normal 15-46 [facility] Comment on above: Performed By: #### M G3, PHOS3, HEMDF, BMP3M #### [facility] [address] [place], [place] Bilirubin [Mass/Vol] 0.6 mg/dL Normal 0.2-1.3 [facility] Comment on above: Performed By: #### M G3, PHOS3, HEMDF, BMP3M #### [facility] [address] [place], [place] CO2 [Moles/Vol] 24 mmol/L Normal 22-30 [facility] Comment on above: Performed By: #### M G3, PHOS3, HEMDF, BMP3M #### [address] [place], [place] Creatinine [Mass/Vol] 0.36 mg/dL Low 0.52-1.25 [facility] Comment on above: Performed By: #### M G3, PHOS3, HEMDF, BMP3M #### [facility] [address] [place], [place] eGFR OTHER > 90.0 Normal >60 [facility] Comment on above: Result Comment: KDIG [...] #### M G3, PHOS3, HEMDF, BMP3M #### [address] [place], [place] GFR/1.73 sq M.predicted among blacks MDRD (S/P/Bld) [Vol rate/Area] mL/min/{1.73_m2} Normal >60 [facility] Comment on above: Performed By: #### M G3, PHOS3, HEMDF, BMP3M #### [address] [place] Chloride [Moles/Vol] 102 mmol/L Normal 98-107 [facility] Comment on above: Performed By: #### M G3, PHOS3, HEMDF, BMP3M #### [address] [place] Potassium [Moles/Vol] 3.3 mmol/L Low 3.5-5.1 [facility] Comment on above: Performed By: #### M G3, PHOS3, HEMDF, BMP3M #### [address] [place] Sodium [Moles/Vol] 130 mmol/L Low 135-145 [facility] Comment on above: Performed By: #### M G3, PHOS3, HEMDF, BMP3M #### [address] [place] Albumin [Mass/Vol] 3.0 g/dL Low 3.5-5.0 [facility] Comment on above: Performed By: #### M G3, PHOS3, HEMDF, BMP3M #### [address] [place] Comprehensive Metabolic Pane lexa 12-14-2020 Albumin [Mass/Vol] 3.0 g/dL Low 3.5 - 5.0 g/dL [facility] Work Phone: [phone] ALP [Catalytic activity/Vol] 67 U/L 38 - 126 U/L [facility] Work Phone: ALT [Catalytic activity/Vol] 24 U/L 0 - 34 U/L [facility] Work Phone: [phone] Comment on above: The ALT test is perf ormed by an updated assay method. Please note that the reference intervals have been changed and are now sex specific. Anion gap [Moles/Vol] 4 mmol/L 3 - 13 mmol/L [facility] Work Phone: [phone] AST [Catalytic activity/Vol] 41 U/L 15 - 46 U/L [facility] Work Phone: [phone] Bilirubin Ql (U) 0.6 mg/dL 0.2 - 1.3 mg/dL [facility] Work Phone: [phone] Calcium [Mass/Vol] 8.5 mg/dL 8.4 - 10. 4 mg/dL [facility] Work Phone: [phone] Chloride [Moles/Vol] 102 mmol/L 98 - 107 mmol/L [facility] Work Phone: [phone] [Moles/Vol] 24 mmol/L 22 - 30 mmol/L [facility] Work Phone: [phone] Creatinine [Mass/Vol] 0.36 mg/dL Low 0.52 - 1.25 mg/dL [facility] Work Phone: [phone] EGFR IF NonAfrican [place]ian >90.0 >60 mL/min [facility] Work Phone: [phone] Comment on above: KDIGO guidelines pro vide [...] MDRD (S/P/Bld) [Vol rate/Area] mL/min/{1.73_m2} >60 mL/min [facility] Work Phone: [phone] Glucose [Mass/Vol] 87 mg/dL 70 - 100 mg/dL [employer] Work Phone: [phone] Potassium [Moles/Vol] 3.3 mmol/L Low 3.5 - 5.1 mmol/L [facility] Work Phone: [phone] Protein [Mass/Vol] 5.7 g/dL Low 6.3 - 8.2 g/dL [facility] Work Phone: [phone] Sodium [Moles/Vol] 130 mmol/L Low 135 - 145 mmol/L [facility] Work Phone: [phone] Urea nitrogen [Mass/Vol] 13 mg/dL 7 - 20 mg/dL [facility] Work Phone: [phone] Folateon 12-14-2020 Folate 14.4 ng/mL Normal 2.8-20.0 [facility] Comment on above: Performed By: #### M G3, PHOS3, HEMDF, BMP3M #### [facility] [address] [place] [phone] Folate 14.4 ng/mL 2.8 - 20.0 ng/mL [facility] Work Phone: [phone] [facility], [address] [place] [address] [facility] Work Phone: [phone] Hemogram w/ [employer] 12-14 Abs Baso Cnt 0.1 10*3/uL Normal 0.0-0.2 [facility] Comment on above: Performed By: #### M G3, PHOS3, HEMDF, BMP3M #### [facility] [address] [place] [phone] Abs Neutrophile Cnt 3.5 10*3/uL Normal 1.8-7.0 [facility] Comment on above: Performed By: #### M G3, PHOS3, HEMDF, BMP3M #### [facility] [address] [place] [phone] Basophils/100 WBC (Bld) 1.3 % Normal 0.0-2.0 [facility] Comment on above: Performed By: #### M G3, PHOS3, HEMDF, BMP3M #### [address] [place], [place] Eosinophils (Bld) [#/Vol] 0.1 10*3/uL Normal 0.0-0.5 [facility] Comment on above: Performed By: #### M G3, PHOS3, HEMDF, BMP3M #### [address] [address] [place], [place] Eosinophils/100 WBC (Bld) 1.7 % Normal 1.0-6.0 [facility] Comment on above: Performed By: #### M G3, PHOS3, HEMDF, BMP3M #### [address] [address] [place] Erythrocyte distribution width (RBC) [Ratio] 14.6 % High 11.5-14.5 [facility] Comment on above: Performed By: #### M G3, PHOS3, HEMDF, BMP3M #### [address] [address] [place], [place] Granulocytes/100 WBC (Bld) 60.9 % Normal 40.0-80.0 [facility] Comment on above: Performed By: #### M G3, PHOS3, HEMDF, BMP3M #### [address] [address] [place], [place] Hematocrit (Bld) [Volume fraction] 34.9 % Low 35.0-47.0 [facility] Comment on above: Performed By: #### M G3, PHOS3, HEMDF, BMP3M #### [address] [address] [place], [place] Hemoglobin (Bld) [Mass/Vol] 11.9 g/dL Normal 11.7-16.0 [facility] Comment on above: Performed By: #### M G3, PHOS3, HEMDF, BMP3M #### [address] [id number] [place], [place] Lymphocytes (Bld) [#/Vol] 1.5 10*3/uL Normal 1.0-4.3 [facility] Comment on above: Performed By: #### M G3, PHOS3, HEMDF, BMP3M #### [facility] [address] [place], [place] Lymphocytes/100 WBC (Bld) 26.5 % Normal 20.0-40.0 [facility] Comment on above: Performed By: #### M G3, PHOS3, HEMDF, BMP3M #### [address] [place], [place] MCH (RBC) [Entitic mass] 34.5 pg High 26.0-34.0 [facility] Comment on above: Performed By: #### M G3, PHOS3, HEMDF, BMP3M #### [address] [place], [place] MCHC 34.1 % Normal 32.0-36.0 [facility] Comment on above: Performed By: #### M G3, PHOS3, HEMDF, BMP3M #### [address] [address] [place], [place] MCV (RBC) [Entitic vol] 101.2 fL High 79.0-98.0 [facility] Comment on above: Performed By: #### M G3, PHOS3, HEMDF, BMP3M #### [address] [place], [place] Monocytes (Bld) [#/Vol] 0.6 10*3/uL Normal 0.0-0.8 [facility] Comment on above: Performed By: #### M G3, PHOS3, HEMDF, BMP3M #### [address] [place], [place] Monocytes/100 WBC (Bld) 9.6 % Normal 2.0-10.0 [facility] Comment on above: Performed By: #### M G3, PHOS3, HEMDF, BMP3M #### [address] [address] [place], [place] Platelet mean volume (Bld) [Entitic vol] 9.0 fL Normal 7.4-10.4 [facility] Comment on above: Performed By: #### M G3, PHOS3, HEMDF, BMP3M #### [address] [place], [place] Platelets (Bld) [#/Vol] 168 10*3/uL Normal 140-440 [facility] Comment on above: Performed By: #### M G3, PHOS3, HEMDF, BMP3M #### [address] RBC (Bld) [#/Vol] 3.45 10*6/uL Low 3.80-5.20 [facility] Comment on above: Performed By: #### M G3, PHOS3, HEMDF, BMP3M #### [address] [place], [place] WBC (Bld) [#/Vol] 5.8 10*3/uL Normal 3.6-10.7 [facility] Comment on above: Performed By: #### M G3, PHOS3, HEMDF, BMP3M #### [address] [place], [place] Hepatitis Panel, Acuteon HAV IgM IA Qn (S) NOT DETECTED Not-Detected NA [facility] Work Phone: Hep B Core Ab, IgM NOT DETECTED Not-Detected NA [facility] Work Phone: Hepatitis B Surface Ag NOT DETECTED Not-Detected NA [facility] Work Phone: Hepatitis C Ab NOT DETECTED Not-Detected NA [facility] Work Phone: Comment on above: Patients with DETECT ED Hepatitis C Ab results should have a new specimen submitted for supplemental testing with a Hepatitis C Quantitative RNA assay (viral load), if clinically indicated. Test Performed by [facility], [facility] [place] [address] [facility] Work Phone: Magnesiumon 12-14-2020 Magnesium [Mass/Vol] 1.3 mg/dL Low 1.6-2.3 [facility] Comment on above: Performed By: #### M G3, PHOS3, HEMDF, BMP3M #### [address] [address] [place], [place] Magnesium [Mass/Vol] 1.3 mg/dL Low 1.6 - 2.3 mg/dL [employer] Work Phone: 1 Otheron 12-14-2020 Interpretation and review of laboratory results Abnormal [employer] Work Phone: Test Performed by [employer] [address] [employer] Work Phone: [phone] CBC auto differentialon 03- Absolute Baso # 0.1 10*3/uL 0.0 - 0.2 10*3/uL [employer] Work Phone: Absolute Neut # 3.9 10*3/uL 1.8 - 7.0 10*3/uL [employer] Work Phone: 1 Basophils/100 WBC (Bld) 1.1 % 0.0 - 2.0 % [employer] Work Phone: Eosinophils (Bld) [#/Vol] 0.0 10*3/uL 0.0 - 0.5 10*3/uL [employer] Work Phone: 1 Eosinophils/100 WBC (Bld) 0.6 % Low 1.0 - 6.0 % [employer] Work Phone: Erythrocyte distribution width (RBC) [Ratio] 14.7 % High 11.5 - 14.5 % [employer] Work Phone: Granulocytes/100 WBC (Bld) 66.9 % 40.0 - 80.0 % [employer] Work Phone: Hematocrit (Bld) [Volume fraction] 35.6 % 35.0 - 47.0 % [employer] Work Phone: Hemoglobin (Bld) [Mass/Vol] 12.1 g/dL 11.7 - 16.0 g/dL [employer] Work Phone: Interpretation and review of laboratory results Abnormal [employer] Work Phone: Lymphocytes (Bld) [#/Vol] 1.2 10*3/uL 1.0 - 4.3 10*3/uL [employer] Work Phone: Lymphocytes/100 WBC (Bld) 20.6 % 20.0 - 40.0 % [employer] Work Phone: [phone] MCH (RBC) [Entitic mass] 34.0 pg 26.0 - 34.0 pg [employer] Work Phone: MCHC (RBC) [Mass/Vol] 33.9 % 32.0 - 36.0 % [employer] Work Phone: 1 MCV (RBC) [Entitic vol] 100.2 fL High 79.0 - 98.0 fL [employer] Work Phone: 1 Monocytes (Bld) [#/Vol] 0.6 10*3/uL 0.0 - 0.8 10*3/uL [employer] Work Phone: 1 Monocytes/100 WBC (Bld) 10.8 % High 2.0 - 10.0 % [employer] Phone: Platelet mean volume (Bld) [Entitic vol] 8.8 fL 7.4 - 10.4 fL [employer] Phone: Platelets (Bld) [#/Vol] 185 10*3/uL 140 - 440 10*3/uL [employer] Work Phone: 1 RBC (Bld) [#/Vol] 3.55 10*6/uL Low 3.80 - 5.2 0 10*6/uL [employer] Work Phone: [phone] WBC (Bld) [#/Vol] 5.8 10*3/uL 3.6 - 10.7 10*3/uL [employer] Work Phone: [phone] Test Performed by [employer], [address] [place] [address] [employer] Work Phone: [phone] CR Abdomen APon 12-13-2020 CR Abdomen AP Patient Name: JAZMIN JOHNSON Diagnostic Radiology ACCESSION EXAM DATE/TIME PROCEDURE ORDERING PROVIDER [id number] 12/13/2020 09:25 EST CR Abdomen AP PHANGUREH, DO, INDERPARTAP KOWALSKI CPT code 48015 Reason For Exam (CR Abdomen AP) MRI [...] Transcribed Date and Time: 12/13/2020 9:25 Normal [facility] CULTURE URINEon 12-13-2020 CULTURE URINE CULTURE URINE --> Status: F No growth (<1,000 CFU/ml). Normal [facility] Comment on above: Performed By: #### A PTT, FIBGN, LDH3, DDI2, B12, CMP3, FERR3, HEMDF, CRP2, PT, FOLT3 #### [facility] [address] [place], [place] #### VD25H #### [facility] [address] [place] [address] Comp Panel with Mg Reflexon 12-13-2020 ALP [Catalytic activity/Vol] 77 U/L Normal 38-126 [facility] Comment on above: Result Comment: Slig htly hemolysed, interpret with caution. Performed By: #### B MP3 #### [facility] [address] [place], [place] ALT [Catalytic activity/Vol] 36 U/L High 0-34 [facility] Comment on above: Result Comment: The ALT test is performed by an updated assay method. Please note that the reference intervals have been changed and are now sex specific. Performed By: #### B MP3 #### [facility] [address] [place], [place] Anion gap [Moles/Vol] 7 mmol/L Normal 3-13 [facility] Comment on above: Performed By: #### B MP3 #### [facility] [address] [place], [place] AST [Catalytic activity/Vol] 76 U/L High 15-46 [facility] Comment on above: Result Comment: Slig htly hemolysed, interpret with caution. Performed By: #### B MP3 #### [facility] [address] [place], [place] Calcium [Mass/Vol] 8.8 mg/dL Normal 8.4-10.4 [facility] Comment on above: Performed By: #### B MP3 #### [facility] [address] [place], [place] CO2 [Moles/Vol] 26 mmol/L Normal 22-30 [facility] Comment on above: Performed By: #### B MP3 #### [facility] [address] [place], [place] Glucose [Mass/Vol] 100 mg/dL Normal 70-100 [facility] Comment on above: Performed By: #### B MP3 #### [facility] [address] [place], [place] Protein [Mass/Vol] 6.5 g/dL Normal 6.3-8.2 [facility] Comment on above: Performed By: #### B MP3 #### [facility] [address] [place], [place] Urea nitrogen [Mass/Vol] 13 mg/dL Normal 7-20 [facility] Comment on above: Performed By: #### B MP3 #### [facility] [address] [place], [place] Bilirubin [Mass/Vol] 1.0 mg/dL Normal 0.2-1.3 [facility] Comment on above: Performed By: #### B MP3 #### [facility] [address] [place], [place] Creatinine [Mass/Vol] 0.38 mg/dL Low 0.52-1.25 [facility] Comment on above: Performed By: #### B MP3 #### [facility] [address] [place], [place] eGFR OTHER > 90.0 Normal >60 [facility] Comment on above: Result Comment: KDIG [...] secretion. Performed By: #### B MP3 #### [facility] [address] [place], [place] GFR/1.73 sq M.predicted among blacks MDRD (S/P/Bld) [Vol rate/Area] mL/min/{1.73_m2} Normal >60 [facility] Comment on above: Performed By: #### B MP3 #### [facility] [address] [place], [place] Albumin [Mass/Vol] 3.6 g/dL Normal 3.5-5.0 [facility] Comment on above: Performed By: #### B MP3 #### [facility] [address] [place] [address] Chloride [Moles/Vol] 97 mmol/L Low 98-107 [facility] Comment on above: Performed By: #### B MP3 #### [facility] [address] [place] [address] Potassium [Moles/Vol] 3.7 mmol/L Normal 3.5-5.1 [facility] Comment on above: Result Comment: Slig htly hemolysed, interpret with caution. Performed By: #### B MP3 #### [facility] [address] [place] [address] Sodium [Moles/Vol] 130 mmol/L Low 135-145 [facility] Comment on above: Performed By: #### B MP3 #### [facility] [address] [place] [phone] Comprehensive Metabolic Pane l w/ Reflex to MGon 12-13-2020 Albumin [Mass/Vol] 3.6 g/dL 3.5 - 5.0 g/dL [employer] Work Phone: [phone] [Catalytic activity/Vol] 77 U/L 38 - 126 U/L [facility] Work Phone: [phone] Comment on above: Slightly hemolysed, interpret with caution. ALT [Catalytic activity/Vol] 36 U/L High 0 - 34 U/L [facility] Work Phone: [phone] Comment on above: The ALT test is perf ormed by an updated assay method. Please note that the reference intervals have been changed and are now sex specific. Anion gap [Moles/Vol] 7 mmol/L 3 - 13 mmol/L [facility] Work Phone: [phone] [Catalytic activity/Vol] 76 U/L High 15 - 46 U/L [facility] Work Phone: [phone] Comment on above: Slightly hemolysed, interpret with caution. Bilirubin Ql (U) 1.0 mg/dL 0.2 - 1.3 mg/dL [facility] Work Phone: [phone] Calcium [Mass/Vol] 8.8 mg/dL 8.4 - 10. 4 mg/dL [facility] Work Phone: [phone] Chloride [Moles/Vol] 97 mmol/L Low 98 - 107 mmol/L [facility] Work Phone: [phone] [phone] [Moles/Vol] 26 mmol/L 22 - 30 mmol/L [facility] Work Phone: [phone] Creatinine [Mass/Vol] 0.38 mg/dL Low 0.52 - 1.25 mg/dL [facility] Work Phone: [phone] EGFR IF NonAfrican Bermudian >90.0 >60 mL/min [facility] Work Phone: [phone] Comment on above: KDIGO guidelines pro vide [...] MDRD (S/P/Bld) [Vol rate/Area] mL/min/{1.73_m2} >60 mL/min [employer] Work Phone: [phone] Glucose [Mass/Vol] 100 mg/dL 70 - 100 mg/dL [facility] [employer] Work Phone: Interpretation and review of laboratory results Abnormal [facility] Work Phone: Potassium [Moles/Vol] 3.7 mmol/L 3.5 - 5.1 mmol/L [employer] Work Phone: Comment on above: Slightly hemolysed, interpret with caution. Protein [Mass/Vol] 6.5 g/dL 6.3 - 8.2 g/dL [facility] Work Phone: Sodium [Moles/Vol] 130 mmol/L Low 135 - 145 mmol/L [facility] Work Phone: Urea nitrogen [Mass/Vol] 13 mg/dL 7 - 20 mg/dL [facility] Work Phone: Test Performed [place] [address] [employer] Work Phone: [phone] Culture, Urineon 12-13-2020 Bacteria identified Cx Nom (U) No growth (<1,000 CFU/ml). [employer] Work Phone: [phone] Test Performed by [employer], [place] [address] [employer] Work Phone: EKG 12 Lead - Chest Painon 0 3-02-2021 [facility] Test Date: 2020-12-12 Pat Name: Jazmin Johnson Department: [facility] Room: [facility] Gender: F Can Vacuum Tester: OLAF : 1950 Requested By: JACK MACHUCA Order Number: [id number] Reading MD: Pepe Young Intervals [place] Rate: 94 P: 28 ME: 127 QRS: -26 QRSD: 105 T: 61 QT: 358 QTc: 448 Interpretive Statements Sinus rhythm Borderline left axis deviation Low voltage, precordial leads Electronically Signed On 12-13-2020 8:30:57 EST by Pepe MÁRQUEZ Work Phone: [place], [facility] Incoming Cardiology Results From [facility] - 12/13/2020 8:[address] [facility] Test Date: 2020-12-12 Pat Name: Jazmin Johnson Department: [facility] Room: [facility] Gender: F Can Vacuum Tester: OLAF : 1950 Requested By: JACK MACHUCA Order Number: [id number] Reading MD: Pepe Young Intervals [place] Rate: 94 P: 28 ME: 127 QRS: -26 QRSD: 105 T: 61 QT: 358 QTc: 448 Interpretive Statements Sinus rhythm Borderline left axis deviation Low voltage, precordial leads Electronically Signed On 12-13-2020 8:30:57 EST by Pepe MÁRQUEZ Work Phone: Hemogram w/ [employer] 12-13 Abs Baso Cnt 0.1 10*3/uL Normal 0.0-0.2 [facility] Comment on above: Performed By: #### B MP3 #### [facility] [address] [place] [address] Abs Neutrophile Cnt 3.9 10*3/uL Normal 1.8-7.0 [facility] Comment on above: Performed By: #### B MP3 #### [facility] [address] [place] [address] Basophils/100 WBC (Bld) 1.1 % Normal 0.0-2.0 [facility] Comment on above: Performed By: #### B MP3 #### [facility] [address] [place], [place] Eosinophils (Bld) [#/Vol] 0.0 10*3/uL Normal 0.0-0.5 [facility] Comment on above: Performed By: #### B MP3 #### [facility] [address] [place] [address] Eosinophils/100 WBC (Bld) 0.6 % Low 1.0-6.0 [facility] Comment on above: Performed By: #### B MP3 #### [facility] [address] [place], [place] Erythrocyte distribution width (RBC) [Ratio] 14.7 % High 11.5-14.5 [facility] Comment on above: Performed By: #### B MP3 #### [facility] [address] [place], [place] Granulocytes/100 WBC (Bld) 66.9 % Normal 40.0-80.0 [facility] Comment on above: Performed By: #### B MP3 #### [facility] [address] [place], [place] Hematocrit (Bld) [Volume fraction] 35.6 % Normal 35.0-47.0 [facility] Comment on above: Performed By: #### B MP3 #### [facility] [address] [place], [place] Hemoglobin (Bld) [Mass/Vol] 12.1 g/dL Normal 11.7-16.0 [facility] Comment on above: Performed By: #### B MP3 #### [facility] [address] [place], [place] Lymphocytes (Bld) [#/Vol] 1.2 10*3/uL Normal 1.0-4.3 [facility] Comment on above: Performed By: #### B MP3 #### [facility] [address] [place], [place] Lymphocytes/100 WBC (Bld) 20.6 % Normal 20.0-40.0 [facility] Comment on above: Performed By: #### B MP3 #### [facility] [address] [place], [place] MCH (RBC) [Entitic mass] 34.0 pg Normal 26.0-34.0 [facility] Comment on above: Performed By: #### B MP3 #### [facility] [address] [place] MCHC 33.9 % Normal 32.0-36.0 [facility] Comment on above: Performed By: #### B MP3 #### [facility] [address] [place], [place] MCV (RBC) [Entitic vol] 100.2 fL High 79.0-98.0 [facility] Comment on above: Performed By: #### B MP3 #### [facility] [address] [place], [place] Monocytes (Bld) [#/Vol] 0.6 10*3/uL Normal 0.0-0.8 [facility] Comment on above: Performed By: #### B MP3 #### [facility] [address] [place], [place] Monocytes/100 WBC (Bld) 10.8 % High 2.0-10.0 [facility] Comment on above: Performed By: #### B MP3 #### [facility] [address] [place], [place] Platelet mean volume (Bld) [Entitic vol] 8.8 fL Normal 7.4-10.4 [facility] Comment on above: Performed By: #### B MP3 #### [facility] [address] [place], [place] Platelets (Bld) [#/Vol] 185 10*3/uL Normal 140-440 [facility] Comment on above: Performed By: #### B MP3 #### [facility] [address] [place] RBC (Bld) [#/Vol] 3.55 10*6/uL Low 3.80-5.20 [facility] Comment on above: Performed By: #### B MP3 #### [facility] [address] [place] [address] WBC (Bld) [#/Vol] 5.8 10*3/uL Normal 3.6-10.7 [facility] Comment on above: Performed By: #### B MP3 #### [facility] [address] [place] [address] MRI BRAIN WO CONTRASTon 03-0 Patient Name: JAZMIN JOHNSON Magnetic Resonance Imaging ACCESSION EXAM DATE/TIME PROCEDURE ORDERING PROVIDER [id number] 12/13/2020 18:00 EST MRI Brain w/o Contrast [id number] ROBERT BERGMAN CPT code 64319 Reason For Exam (MRI Brain w/o Contrast) subdural hematoma, altered mental status Report MRI OF THE BRAIN WITHOUT GADOLINIUM CLINICAL INDICATION: subdural hematoma, altered mental status TECHNIQUE: Routine MRI of the brain without gadolinium was ordered, patient could only tolerate online content developer images, diffusion, sagittal T1 and axial FLAIR. [...] Time: 12/13/2020 6:38 [facility] Work Phone: [place], [facility] Incoming Radiology Results From [facility] - 12/13/2020 6:44 PM EST Patient Name: JAZMIN JOHNSON Magnetic Resonance Imaging ACCESSION EXAM DATE/TIME PROCEDURE ORDERING PROVIDER [id number] 12/13/2020 18:00 EST MRI Brain w/o Contrast ORBERT OSWALD CPT code 68268 Reason For Exam (MRI Brain w/o Contrast) subdural hematoma, altered mental status Report MRI OF THE BRAIN WITHOUT GADOLINIUM CLINICAL INDICATION: subdural hematoma, altered mental status TECHNIQUE: Routine MRI of the brain without gadolinium was ordered, patient could only tolerate online content developer images, diffusion, sagittal T1 and axial FLAIR. [...] Imaging ACCESSION EXAM DATE/TIME PROCEDURE ORDERING PROVIDER [id number] 12/13/2020 18:00 EST MRI Brain w/o Contrast [id number] UREÑAELLE CPT code 92302 Reason For Exam (MRI Brain w/o Contrast) subdural hematoma, altered mental status Report MRI OF THE BRAIN WITHOUT GADOLINIUM CLINICAL INDICATION: subdural hematoma, altered mental status TECHNIQUE: Routine MRI of the brain without gadolinium was ordered, patient could only tolerate online content developer images, diffusion, sagittal T1 and axial FLAIR. [...] Transcribed Date and Time: 12/13/2020 6:38 Normal [facility] XR ABDOMEN (KUB) (SINGLE AP VIEW)on 12-13-2020 [place], [facility] Incoming Radiology Results From [facility] - 12/13/2020 9:29 AM EST Patient Name: JAZMIN JOHNSON Diagnostic Radiology ACCESSION EXAM DATE/TIME PROCEDURE ORDERING PROVIDER [id number] 12/13/2020 09:25 EST CR Abdomen AP DO MAURICE INDERPARTAP SINGH CPT code 67853 Reason For Exam (CR Abdomen AP) MRI [...] Dictated: 12/13/2020 9:25 am Dictating Physician: MD JOHNVIANEY Signed Date and Time: 12/13/2020 9:28 am Signed by: MD LOPEZ VLADIMIR Transcribed Date and Time: 12/13/2020 9:25 [facility] Work Phone: Patient Name: JAZMIN JOHNSON Diagnostic Radiology ACCESSION EXAM DATE/TIME PROCEDURE ORDERING PROVIDER [id number] 12/13/2020 09:25 EST CR Abdomen AP PHANGUREH, DO, INDERPARTAP DEX CPT code 64539 Reason For Exam (CR Abdomen AP) MRI [...] VLADIMIR Transcribed Date and Time: 12/13/2020 9:25 [facility] Work Phone: Add On Lab Teston 12-12-2020 Sodium [Moles/Vol] Accepted [facility] Work Phone: Comment on above: Specimen available & acceptable for analysis. Test Performed by [facility], [address] [place] [address] [facility] Work Phone: Add on test from HISon 12-12 Add on test from HIS Accepted Normal [facility] Comment on above: Result Comment: Spec imen available & acceptable for analysis. Performed By: #### M G3, PHOS3, HEMDF, BMP3M #### [address] [address] Ammoniaon 12-12-2020 Ammonia (P) [Mass/Vol] ug/dL Normal 9-30 [facility] Comment on above: Result Comment: Slig htly hemolysed, interpret with caution. Performed By: #### B MP3 #### [facility] [address] [place] [address] Ammonia (P) [Mass/Vol] ug/dL 9 - 30 umol/L [facility] Work Phone: [phone] Comment on above: Slightly hemolysed, interpret with caution. Test Performed by [employer], [address] [place] [address] [address] [facility] Work Phone: [phone] Blood Gas, Venouson 12-13-19 21 Base Excess, Hira 0.9 mmol/L -3.0 - 3.0 mmol/L [facility] Work Phone: 1 HCO3, Venous 25.1 mmol/L 23.0 - 27.0 mmol/L [facility] Work Phone: [phone] Hemoglobin (Bld) [Mass/Vol] 14.9 g/dL ScreenOnly [facility] Work Phone: [phone] Interpretation and review of laboratory results Abnormal [facility] Work Phone: [phone] Oxygen saturation in Blood 90.9 % High 60.0 - 85.0 % [facility] Work Phone: [phone] pCO2, Hira 38.8 mm[Hg] Low 40.0 - 55.0 mm[Hg] [facility] Work Phone: [phone] 22 pH, Hira 7.429 [facility] Work Phone: [phone] 22 pO2, Hira 64.2 mm[Hg] High 30.0 - 50.0 mm[Hg] [facility] Work Phone: [phone] Sodium [Moles/Vol] No data [facility] Work Phone: 1 TC02 (Calc), Hira 26.3 mmol/L 24.0 - 28.0 mmol/L [facility] Work Phone: [phone] Test Performed by [employer], [address] [place] [address] [address] [facility] Work Phone: [phone] Blood Gas,Venouson 1 CO2 [Moles/Vol] 26.3 mmol/L Normal 24.0-28.0 [facility] Comment on above: Performed By: #### B MP3 #### [facility] [address] [place], [place] HCO3 (Bld) [Moles/Vol] 25.1 mmol/L Normal 23.0-27.0 [facility] Comment on above: Performed By: #### B MP3 #### [facility] [address] [place], [place] Hemoglobin (Bld) [Mass/Vol] 14.9 g/dL Normal ScreenOnly [facility] Comment on above: Performed By: #### B MP3 #### [address] [place], [place] Oxygen (Bld) [Partial pressure] 64.2 mm[Hg] High 30.0-50.0 [facility] Comment on above: Performed By: #### B MP3 #### [address] [place], [place] Oxygen saturation in Blood 90.9 % High 60.0-85.0 [facility] Comment on above: Performed By: #### B MP3 #### [address] [place], [place] pCO2 38.8 mm[Hg] Low 40.0-55.0 [facility] Comment on above: Performed By: #### B MP3 #### [address] [place], [place] pH 7.429 Normal 7.330-7.430 [facility] Comment on above: Performed By: #### B MP3 #### [facility] [address] [place], [place] Std Base Excess 0.9 mmol/L Normal -3.0-3.0 [facility] Comment on above: Performed By: #### B MP3 #### [address] [place], [place] FIO2 No data Normal [facility] Comment on above: Performed By: #### B MP3 #### [address] [place], [place] CBC Auto Differentialon 03-0 Absolute Baso # 0.0 10*3/uL 0.0 - 0.2 10*3/uL [facility] [employer] Work Phone: [phone] Absolute Neut # 6.0 10*3/uL 1.8 - 7.0 10*3/uL [employer] Work Phone: 22 Basophils/100 WBC (Bld) 0.4 % 0.0 - 2.0 % [employer] Work Phone: Eosinophils (Bld) [#/Vol] 0.0 10*3/uL 0.0 - 0.5 10*3/uL [employer] Work Phone: [phone] Eosinophils/100 WBC (Bld) 0.2 % Low 1.0 - 6.0 % [employer] Work Phone: Erythrocyte distribution width (RBC) [Ratio] 14.7 % High 11.5 - 14.5 % [employer] Work Phone: Granulocytes/100 WBC (Bld) 79.2 % 40.0 - 80.0 % [employer] Work Phone: Hematocrit (Bld) [Volume fraction] 41.0 % 35.0 - 47.0 % [facility] [employer] Work Phone: Hemoglobin (Bld) [Mass/Vol] 13.9 g/dL 11.7 - 16.0 g/dL [employer] Work Phone: Interpretation and review of laboratory results Abnormal [employer] Work Phone: Lymphocytes (Bld) [#/Vol] 0.9 10*3/uL Low 1.0 - 4.3 10*3/uL [employer] Work Phone: [phone] Lymphocytes/100 WBC (Bld) 11.6 % Low 20.0 - 40.0 % [employer] Work Phone: MCH (RBC) [Entitic mass] 33.7 pg 26.0 - 34.0 pg [employer] Work Phone: 22 MCHC (RBC) [Mass/Vol] 33.8 % 32.0 - 36.0 % [employer] Work Phone: [phone] MCV (RBC) [Entitic vol] 99.7 fL High 79.0 - 98.0 fL [employer] Work Phone: 1 Monocytes (Bld) [#/Vol] 0.7 10*3/uL 0.0 - 0.8 10*3/uL [employer] Work Phone: 1 Monocytes/100 WBC (Bld) 8.6 % 2.0 - 10.0 % [facility]: 1 Platelet mean volume (Bld) [Entitic vol] 8.6 fL 7.4 - 10.4 fL [employer] Work Phone: 1) Platelets (Bld) [#/Vol] 219 10*3/uL 140 - 440 10*3/[facility]L [facility] Work Phone: 1) RBC (Bld) [#/Vol] 4.11 10*6/uL 3.80 - 5.2 0 10*6/uL [facility] Work Phone: 1) WBC (Bld) [#/Vol] 7.6 10*3/uL 3.6 - 10.7 10*3/uL [employer] Work Phone: [phone] Test Performed by [employer], [address] [place] [address] [facility] Work Phone: [phone] COVID-19on 12-12-2020 Interpretation and review of laboratory results Abnormal [facility] Work Phone: [phone] SARS-CoV-[address] [facility] Work Phone: [phone] Comment on above: DETECTED Expected Result: Not Detected _ Real-time, RT-PCR performed on the [employer] System by the [employer] [facility]. Negative results do not preclude SARS-CoV-2 infection and should not be used as the sole basis for treatment or other patient management decisions. This assay was developed by [employer] and distributed under an Emergency Use Authorization (EUA) granted by the FDA for the qualitative detection of SARS-CoV-2 nucleic acid. Test Performed by [employer], [address] [place] [address] CR Chest Portableon 12-13-19 21 CR Chest Portable Patient Name: JAZMIN JOHNSON Diagnostic Radiology ACCESSION EXAM DATE/TIME PROCEDURE ORDERING PROVIDER [id number] 12/12/2020 16:25 EST CR Chest Portable [id number] -HIRAELANA JACK CPT code 17498 Reason For Exam (CR Chest Portable) AMS [...] Transcribed Date and Time: 12/12/2020 4:04 Normal [facility] CT Head WO Contraston 2020 [place], [facility] Incoming Radiology Results From [facility] - 12/12/2020 3:19 PM EST Patient Name: JAZMIN JOHNSON Computed Tomography ACCESSION EXAM DATE/TIME PROCEDURE ORDERING PROVIDER [id number] 12/12/2020 14:[address] Head or Brain w/o [id number] -HIRACZEL, JACK Contrast CPT code 13781 Reason For Exam (CT Head or Brain [...] Tomography ACCESSION EXAM DATE/TIME PROCEDURE ORDERING PROVIDER [id number] 12/12/2020 14:[address] Head or Brain w/o [id number] -JACK MACHUCA Contrast CPT code 74503 Reason For Exam (CT Head or Brain [...] Tomography ACCESSION EXAM DATE/TIME PROCEDURE ORDERING PROVIDER [id number] 12/12/2020 14:[address] Head or Brain w/o [id number] -JACK MACHUCA Contrast CPT code 83843 Reason For Exam (CT Head or Brain [...] Transcribed Date and Time: 12/12/2020 2:57 Normal [facility] Comp Metabolic Panelon 12-12 Calcium [Mass/Vol] 9.9 mg/dL Normal 8.4-10.4 [facility] Comment on above: Performed By: #### B MP3 #### [address] [address] ALP [Catalytic activity/Vol] 112 U/L Normal 38-126 [facility] Comment on above: Performed By: #### B MP3 #### [facility] [address] [place], [place] ALT [Catalytic activity/Vol] 47 U/L High 0-34 [facility] Comment on above: Result Comment: The ALT test is performed by an updated assay method. Please note that the reference intervals have been changed and are now sex specific. Performed By: #### B MP3 #### [facility] [address] [place], [place] Anion gap [Moles/Vol] 15 mmol/L High 3-13 [facility] Comment on above: Performed By: #### B MP3 #### [facility] [address] [place], [place] AST [Catalytic activity/Vol] 107 U/L High 15-46 [facility] Comment on above: Performed By: #### B MP3 #### [facility] [address] [place], [place] Bilirubin [Mass/Vol] 0.8 mg/dL Normal 0.2-1.3 [facility] Comment on above: Performed By: #### B MP3 #### [facility] [address] [place], [place] CO2 [Moles/Vol] 24 mmol/L Normal 22-30 [facility] Comment on above: Performed By: #### B MP3 #### [facility] [address] [place], [place] Creatinine [Mass/Vol] 0.46 mg/dL Low 0.52-1.25 [facility] Comment on above: Performed By: #### B MP3 #### [facility] [address] [place], [place] eGFR OTHER > 90.0 Normal >60 [facility] Comment on above: Result Comment: KDIG [...] secretion. Performed By: #### B MP3 #### [address] [place] [address] GFR/1.73 sq M.predicted among blacks MDRD (S/P/Bld) [Vol rate/Area] mL/min/{1.73_m2} Normal >60 [facility] Comment on above: Performed By: #### B MP3 #### [address] [place] [address] Glucose [Mass/Vol] 107 mg/dL High 70-100 [facility] Comment on above: Performed By: #### B MP3 #### [address] [place] [address] Protein [Mass/Vol] 7.6 g/dL Normal 6.3-8.2 [facility] Comment on above: Performed By: #### B MP3 #### [address] [place] [address] Urea nitrogen [Mass/Vol] 14 mg/dL Normal 7-20 [facility] Comment on above: Performed By: #### B MP3 #### [address] [address] Potassium [Moles/Vol] 3.4 mmol/L Low 3.5-5.1 [facility] Comment on above: Performed By: #### B MP3 #### [address] [address] Albumin [Mass/Vol] 4.4 g/dL Normal 3.5-5.0 [facility] Comment on above: Performed By: #### B MP3 #### [address] [place], [place] Chloride [Moles/Vol] 92 mmol/L Low 98-107 [facility] Comment on above: Performed By: #### B MP3 #### [address] [place], [place] Sodium [Moles/Vol] 130 mmol/L Low 135-145 [facility] Comment on above: Performed By: #### B MP3 #### [address] [place], [place] Complete Urinalysison 2020 Appearance (U) Clear Normal Clear [facility] Comment on above: Result Comment: . Performed By: #### E TOH4 #### [address] [place], [place] Bacteria LM.HPF (Urine sed) [#/Area] Negative Normal Negative [facility] Comment on above: Result Comment: . Performed By: #### E TOH4 #### [address] [place], [place] Bilirubin,Urine Negative Normal Negative [facility] Comment on above: Result Comment: . Performed By: #### E TOH4 #### [address] [place], [place] Cast, Hyaline Negative Normal Negative [facility] Comment on above: Result Comment: . Performed By: #### E TOH4 #### [address] [place], [place] Color (U) Yellow Normal Lt. Yellow [facility] Comment on above: Result Comment: . Performed By: #### E TOH4 #### [address] [place], [place] Glucose Ql (U) Normal Normal Normal (<70) [facility] Comment on above: Result Comment: . Performed By: #### E TOH4 #### [address] Ketone,Urine 10 mg/dL Abnormal Negative [facility] Comment on above: Result Comment: . Performed By: #### E TOH4 #### [address] [place], [place] Leukocytes,Urine Negative Normal Negative [facility] Comment on above: Result Comment: . Performed By: #### E TOH4 #### [address] [place], [place] Mucous Threads Few Normal Negative [facility] Comment on above: Result Comment: . Performed By: #### E TOH4 #### [address] [place], [place] Nitrites,Urine Negative Normal Negative [facility] Comment on above: Result Comment: . Performed By: #### E TOH4 #### [address] [place], [place] Occult Blood,Urine Negative Normal Negative [facility] Comment on above: Result Comment: . Performed By: #### E TOH4 #### [address] [place], [place] pH,Urine 7.5 Normal 5.0-8.0 [facility] Comment on above: Result Comment: . Performed By: #### E TOH4 #### [address] [place], [place] Protein (U) [Mass/Vol] 10 mg/dL Abnormal Negative [facility] Comment on above: Result Comment: . Performed By: #### E TOH4 #### [address] [place], [place] RBC, Urine 0 - 2 Normal 0-2 [facility] Comment on above: Result Comment: . Performed By: #### E TOH4 #### [address] [place], [place] Specific [place],Urine 1.011 Normal 1.005 - 1.030 [facility] Comment on above: Result Comment: . Performed By: #### E TOH4 #### [address] [place], [place] Squamous Epithelial Negative Normal 3-5 [facility] Comment on above: Result Comment: . Performed By: #### E TOH4 #### [address] [place], [place] Urobilinogen,Urine 2 mg/dL Abnormal Normal (0-1) [facility] Comment on above: Result Comment: . Performed By: #### E TOH4 #### [facility] [address] [place], [place] WBC, Urine 0 - 2 Normal 0-5 [facility] Comment on above: Result Comment: . Performed By: #### E TOH4 #### [facility] [address] [place], [place] Comprehensive Metabolic Pane lexa 12-12-2020 Albumin [Mass/Vol] 4.4 g/dL 3.5 - 5.0 g/dL [facility] Work Phone: [phone] ALP [Catalytic activity/Vol] 112 U/L 38 - 126 U/L [facility] Work Phone: ALT [Catalytic activity/Vol] 47 U/L High 0 - 34 U/L [facility] Work Phone: Comment on above: The ALT test is perf ormed by an updated assay method. Please note that the reference intervals have been changed and are now sex specific. Anion gap [Moles/Vol] 15 mmol/L High 3 - 13 mmol/L [facility] Work Phone: AST [Catalytic activity/Vol] 107 U/L High 15 - 46 U/L [facility] Work Phone: Bilirubin Ql (U) 0.8 mg/dL 0.2 - 1.3 mg/dL [facility] Work Phone: Calcium [Mass/Vol] 9.9 mg/dL 8.4 - 10. 4 mg/dL [facility] Work Phone: Chloride [Moles/Vol] 92 mmol/L Low 98 - 107 mmol/L [facility] Work Phone: [phone] CO2 [Moles/Vol] 24 mmol/L 22 - 30 mmol/L [facility] Work Phone: [phone] Creatinine [Mass/Vol] 0.46 mg/dL Low 0.52 - 1.25 mg/dL [facility] Work Phone: [phone] IF NonAfrican Bermudian >90.0 >60 mL/min [facility] Work Phone: Comment on above: KDIGO guidelines [...] MDRD (S/P/Bld) [Vol rate/Area] mL/min/{1.73_m2} >60 mL/min [facility] Work Phone: Glucose [Mass/Vol] 107 mg/dL High 70 - 100 mg/dL [employer] Work Phone: Potassium [Moles/Vol] 3.4 mmol/L Low 3.5 - 5.1 mmol/L [facility] Work Phone: Protein [Mass/Vol] 7.6 g/dL 6.3 - 8.2 g/dL [employer] Work Phone: Sodium [Moles/Vol] 130 mmol/L Low 135 - 145 mmol/L [facility] Work Phone: Urea nitrogen [Mass/Vol] 14 mg/dL 7 - 20 mg/dL [facility] Work Phone: Drugs of Abuseon 12-12-2020 Phencyclidine (PCP), Ur Negative Normal [facility] Comment on above: Result Comment: The [...] order. Performed By: #### B MP3 #### [facility] [address] [facility] [place], [place] Methadone, Ur Negative Normal [facility] Comment on above: Performed By: #### B MP3 #### [facility] [address] [facility] [place] Opiates, Ur Negative Normal [facility] Comment on above: Performed By: #### B MP3 #### [facility] [address] [facility] [place] Cocaine, Ur Negative Normal [facility] Comment on above: Performed By: #### B MP3 #### [facility] [address] [place] [address] Barbiturates, Ur Positive Normal [facility] Comment on above: Performed By: #### B MP3 #### [facility] [address] [place] [address] Benzodiazepines, Ur Negative Normal [facility] Comment on above: Performed By: #### B MP3 #### [facility] [address] [facility] [place], [place] Amphetamines, Ur Negative Normal [facility] Comment on above: Performed By: #### B MP3 #### [facility] [address] [place] [address] Oxycodone/Oxymorphine ,Ur Negative Normal [facility] Comment on above: Performed By: #### B MP3 #### [facility] [address] [facility] [place], [place] ED Provider Noteon ED Provider Note ACH [...] patient come from an ECF, SNF, Rehab, Nursing Home or other Congregate setting: No (If yes [...] mouth nightly VITAMIN D (ERGOCALCIFEROL) 1.25 MG (19851 UT) CAPS CAPSULE Take 1 capsule by [...] None Rela (more content not included)... Normal [facility] ED Provider Note Emergency Department Encounter [facility] EMERGENCY [facility]PT Patient: Jazmin Johnson : 1950 Date of Evaluation: 12/12/2020 ED Supervising Physician: Dario Tilley MD I independently examined and evaluated Jazmin Johnson. I wore a n95 mask for the entirety of this encounter. Does this patient come from an ECF, SNF, Rehab, Nursing Home or other Congregate setting: no (If yes [...] 1405 Dario Tilley MD 12/12/20 1407 Normal [facility] Ethanolon 12-12-2020 Ethanol Lvl 0.156 g/dL High 0.000 - 0.010 g/dL [facility] Work Phone: Comment on above: NOTE: This result is for medical treatment only. Analysis performed using non-forensic procedures. Ethanol Serum/Plasmaon 12-12 Ethanol-Serum/Plasma 0.156 g/dL High 0.000-0.010 [facility] Comment on above: Result Comment: NOTE : This result is for medical treatment only. Analysis performed using non-forensic procedures. Performed By: #### B MP3 #### [address] [place], [place] Free T4on 12-12-2020 Free T4 [Mass/Vol] 0.93 ng/dL Normal 0.78-2.19 [facility] Comment on above: Performed By: #### B MP3 #### [address] [place], [place] Hemogram w/ Autodiffon 12-12 Abs Baso Cnt 0.0 10*3/uL Normal 0.0-0.2 [facility] Comment on above: Performed By: #### B MP3 #### [address] [place], [place] Abs Neutrophile Cnt 6.0 10*3/uL Normal 1.8-7.0 [facility] Comment on above: Performed By: #### B MP3 #### [address] [place], [place] Basophils/100 WBC (Bld) 0.4 % Normal 0.0-2.0 [facility] Comment on above: Performed By: #### B MP3 #### [address] [place], [place] Eosinophils (Bld) [#/Vol] 0.0 10*3/uL Normal 0.0-0.5 [facility] Comment on above: Performed By: #### B MP3 #### [address] [place], [place] Eosinophils/100 WBC (Bld) 0.2 % Low 1.0-6.0 [facility] Comment on above: Performed By: #### B MP3 #### [address] Erythrocyte distribution width (RBC) [Ratio] 14.7 % High 11.5-14.5 [facility] Comment on above: Performed By: #### B MP3 #### [address] [place], [place] Granulocytes/100 WBC (Bld) 79.2 % Normal 40.0-80.0 [facility] Comment on above: Performed By: #### B MP3 #### [facility] [address] [place], [place] Hematocrit (Bld) [Volume fraction] 41.0 % Normal 35.0-47.0 [facility] Comment on above: Performed By: #### B MP3 #### [facility] [address] [place], [place] Hemoglobin (Bld) [Mass/Vol] 13.9 g/dL Normal 11.7-16.0 [facility] Comment on above: Performed By: #### B MP3 #### [address] [place], [place] Lymphocytes (Bld) [#/Vol] 0.9 10*3/uL Low 1.0-4.3 [facility] Comment on above: Performed By: #### B MP3 #### [address] [place], [place] Lymphocytes/100 WBC (Bld) 11.6 % Low 20.0-40.0 [facility] Comment on above: Performed By: #### B MP3 #### [address] [place], [place] MCH (RBC) [Entitic mass] 33.7 pg Normal 26.0-34.0 [facility] Comment on above: Performed By: #### B MP3 #### [address] [place] MCHC 33.8 % Normal 32.0-36.0 [facility] Comment on above: Performed By: #### B MP3 #### [address] [place], [place] MCV (RBC) [Entitic vol] 99.7 fL High 79.0-98.0 [facility] Comment on above: Performed By: #### B MP3 #### [address] [place], [place] Monocytes (Bld) [#/Vol] 0.7 10*3/uL Normal 0.0-0.8 [facility] Comment on above: Performed By: #### B MP3 #### [facility] [address] Monocytes/100 WBC (Bld) 8.6 % Normal 2.0-10.0 [facility] Comment on above: Performed By: #### B MP3 #### [facility] [place] [address] [place], [place] Platelet mean volume (Bld) [Entitic vol] 8.6 fL Normal 7.4-10.4 [facility] Comment on above: Performed By: #### B MP3 #### [facility] [address] [address] [place], [place] Platelets (Bld) [#/Vol] 219 10*3/uL Normal 140-440 [facility] Comment on above: Performed By: #### B MP3 #### [facility] [address] RBC (Bld) [#/Vol] 4.11 10*6/uL Normal 3.80-5.20 [facility] Comment on above: Performed By: #### B MP3 #### [facility] [address] WBC (Bld) [#/Vol] 7.6 10*3/uL Normal 3.6-10.7 [facility] Comment on above: Performed By: #### B MP3 #### [facility] [address] [address] [place], [place] Magnesiumon 12-12-2020 Magnesium [Mass/Vol] 1.4 mg/dL Low 1.6-2.3 [facility] Work Phone: Comment on above: Performed By: #### B MP3 #### [facility] [address] Interpretation and review of laboratory results Abnormal [facility] Work Phone: Test Performed by [facility] [address] [address] [facility] Work Phone: Otheron 12-12-2020 Interpretation and review of laboratory results Abnormal [facility] Work Phone: [phone] Test Performed by [employer], [address] [place] [address] [facility] Work Phone: [phone] [id number] 12-12-2020 SARS-CoV-2 (COVID-19) RNA CY+probe Ql (Unsp spec) SARS-CoV-2 --> Status: F DETECTED Expected Result: Not Detected _ Real-time, RT-PCR performed on the [employer] System by the [facility]. Negative results do not preclude SARS-CoV-2 infection and should not be used as the sole basis for treatment or other patient management decisions. This assay was developed by [employer] and distributed under an Emergency Use Authorization (EUA) granted by the FDA for the qualitative detection of SARS-CoV-2 nucleic acid. Expected Result: Not Detected _ Real-time, RT-PCR performed on the [employer] System by the [facility]. Negative results do not preclude SARS-CoV-2 infection and should not be used as the sole basis for treatment or other patient management decisions. This assay was developed by [employer] and distributed under an Emergency Use Authorization (EUA) granted by the FDA for the qualitative detection of SARS-CoV-2 nucleic acid. Abnormal [facility] Comment on above: Performed By: #### A PTT, FIBGN, LDH3, DDI2, B12, CMP3, FERR3, HEMDF, CRP2, PT, FOLT3 #### [facility] [employer] [address] [place] [id number] #### [id number] #### [employer] [address] [place] [address] T4, Freeon 12-12-2020 Free T4 [Mass/Vol] 0.93 ng/dL 0.78 - 2. 19 ng/dL [employer] Work Phone: [phone] Test Performed by [employer], [address] [place] [address] [facility] Work Phone: [phone] TSH without Reflexon Interpretation and review of laboratory results Abnormal [facility] Work Phone: [phone] TSH Qn 6.046 u[IU]/mL High 0.465 - 4.680 u[IU]/mL [facility] [employer] Work Phone: [phone] Test Performed by [employer], [address] [place] [address] [employer] Work Phone: [phone] Thyroid Stim. Hormoneon 03-0 Thyroid Stim. Hormone 6.046 u[IU]/mL High 0.465-4.68 0 [facility] Comment on above: Performed By: #### B MP3 #### [employer] [address] [place] [phone] Troponinon 12-12-2020 Troponin I.cardiac [Mass/Vol] ng/mL 0.000 - 0.034 ng/mL [employer] Work Phone: [phone] Comment on above: . Test Performed by [employer], [address] [place] [id number] [employer] Work Phone: [phone] Troponin Ion 12-12-2020 Troponin I.cardiac [Mass/Vol] ng/mL Normal 0.000-0.034 [facility] Comment on above: Result Comment: . Performed By: #### B MP3 #### [employer] [address] [place] [phone] Urinalysison 12-12-2020 Appearance (U) Clear Clear NA [facility] Work Phone: [phone] Comment on above: . Bacteria, UA Negative Negative /[HPF] [facility] Work Phone: [phone] Comment on above: . Bilirubin Urine Negative Negative mg/dL [facility] Work Phone: [phone] Comment on above: . Color (U) Yellow Lt. Yellow NA [facility] Work Phone: [phone] Comment on above: . Glucose, Ur Normal Normal (<70) mg/dL [facility] Work Phone: [phone] Comment on above: . Hyaline Casts, UA Negative Negative /[LPF] [facility] Work Phone: [phone] Comment on above: . Interpretation and review of laboratory results Abnormal [facility] Work Phone: Ketones Ql (U) 10 mg/dL Abnormal Negative [facility] Work Phone: 1 Comment on above: . LEUKOCYTES, UA Negative Negative Jennifer/uL [facility] Work Phone: 1 Comment on above: . Mucous Threads Few Negative /[LPF] [facility] Work Phone: 1 Comment on above: . Nitrite, Urine Negative Negative NA [facility] Work Phone: 1 Comment on above: . Occult Blood,Urine Negative Negative mg/dL [facility] Work Phone: 1 Comment on above: . pH (U) 7.5 [pH] [facility] Work Phone: 1 Comment on above: . Protein (U) [Mass/Vol] 10 mg/dL Abnormal Negative [facility] Work Phone: 1 Comment on above: . RBC (U) [#/Vol] 0-2 0 - 2 /[HPF] [facility] Work Phone: 1 Comment on above: . Specific [place], Urine 1.011 [facility] Work Phone: 1 Comment on above: . Squam Epithel, UA Negative 3 - 5 /[HPF] [facility] Work Phone: 1 Comment on above: . Urobilinogen, Urine 2 mg/dL Abnormal Normal (0-1) [facility] Work Phone: 1 Comment on above: . WBC, UA 0-2 0 - 5 /[HPF] [facility] Work Phone: 1 Comment on above: . Test Performed by [facility], [address] [place] [address] [facility] Work Phone: [phone] Urine Drug Screenon 12-13-19 21 Amphetamines, urine Negative [facility] Work Phone: [phone] Barbiturates, Ur Positive [facility] Work Phone: [phone] Benzodiazepine Ur Qual Negative [facility] Work Phone: [phone] Cocaine Metabolites, Ur Negative [facility] Work Phone: 1 Methadone, Urine Negative [facility] Work Phone: 1 [address], [address] [facility] Work Phone: Oxycodone Screen, Ur Negative [facility] Work Phone: [phone] PCP, Urine Negative [facility] Work Phone: Comment on above: The expected value f [...] confirmation under separate order. Test Performed by [employer], [address] [place] [id number] [facility] Work Phone: Vitamin B12on 12-12-2020 Cobalamin (Vitamin B12) [Mass/Vol] 960 pg/mL High 239-931 [facility] Comment on above: Performed By: #### B MP3 #### [employer] [address] [place] [id number] Cobalamin (Vitamin B12) [Mass/Vol] 960 pg/mL High 239 - 931 pg/mL [facility] Work Phone: Interpretation and review of laboratory results Abnormal [facility] Work Phone: Test Performed by [employer], [address] [place] [id number] [facility] Work Phone: XR CHEST PORTABLEon 12-13-19 Patient Name: JAZMIN JOHNSON Diagnostic Radiology ACCESSION EXAM DATE/TIME PROCEDURE ORDERING PROVIDER [id number] 12/12/2020 16:25 EST CR Chest Portable [id number] JACK GRIFFITHS CPT code 83030 Reason For Exam (CR Chest Portable) AMS [...] VLADIMIR Transcribed Date and Time: 12/12/2020 4:04 [facility] Work Phone: [place] Results From [facility] - 12/12/2020 4:25 PM EST Patient Name: JAZMIN JOHNSON Diagnostic Radiology ACCESSION EXAM DATE/TIME PROCEDURE ORDERING PROVIDER [id number] 12/12/2020 16:25 EST CR Chest Portable [id number] JACK GRIFFITHS CPT code 76957 Reason For Exam (CR Chest Portable) AMS [...] Time: 12/12/2020 4:06 pm Signed by: MD JOHN, VIANEY Transcribed Date and Time: 12/12/2020 4:04 [facility] Work Phone: C-Reactive Proteinon 021 CRP [Mass/Vol] mg/L Normal 0.0-6.0 [facility] Comment on above: Result Comment: . Performed By: #### E TOH4 #### [facility] [address] [place], [place] Comp Metabolic Panelon 11-16 Calcium [Mass/Vol] 9.6 mg/dL Normal 8.4-10.4 [facility] Comment on above: Performed By: #### E TOH4 #### [place] [address] [place], [place] Glucose [Mass/Vol] 79 mg/dL Normal 70-100 [facility] Comment on above: Performed By: #### E TOH4 #### [place] [address] [place], [place] Urea nitrogen [Mass/Vol] 18 mg/dL Normal 7-20 [facility] Comment on above: Performed By: #### E TOH4 #### [place] [place], [place] ALP [Catalytic activity/Vol] 65 U/L Normal 38-126 [facility] Comment on above: Performed By: #### E TOH4 #### [facility] [address] [place], [place] ALT [Catalytic activity/Vol] 13 U/L Normal 0-34 [facility] Comment on above: Result Comment: The ALT test is performed by an updated assay method. Please note that the reference intervals have been changed and are now sex specific. Performed By: #### E TOH4 #### [place] [address] [place], [place] Anion Gap 9 Normal [facility] Comment on above: Performed By: #### E TOH4 #### [place] [address] [place], [place] AST [Catalytic activity/Vol] 29 U/L Normal 15-46 [facility] Comment on above: Performed By: #### E TOH4 #### [facility] [address] [place], [place] Bilirubin [Mass/Vol] 0.4 mg/dL Normal 0.2-1.3 [facility] Comment on above: Performed By: #### E TOH4 #### [address] CO2 [Moles/Vol] 23 mmol/L Normal 22-30 [facility] Comment on above: Performed By: #### E TOH4 #### [address] Creatinine [Mass/Vol] 0.49 mg/dL Low 0.52-1.25 [facility] Comment on above: Performed By: #### E TOH4 #### [address] eGFR OTHER > 90.0 Normal >60 [facility] Comment on above: Result Comment: KDIG [...] secretion. Performed By: #### E TOH4 #### [address] GFR/1.73 sq M.predicted among blacks MDRD (S/P/Bld) [Vol rate/Area] mL/min/{1.73_m2} Normal >60 [facility] Comment on above: Performed By: #### E TOH4 #### [facility] [address] [place] [address] Protein [Mass/Vol] 6.5 g/dL Normal 6.3-8.2 [facility] Comment on above: Performed By: #### E TOH4 #### [facility] [address] [place] [address] Potassium [Moles/Vol] 3.8 mmol/L Normal 3.5-5.1 [facility] Comment on above: Performed By: #### E TOH4 #### [place] [address] [place], [place] Albumin [Mass/Vol] 3.6 g/dL Normal 3.5-5.0 [facility] Comment on above: Performed By: #### E TOH4 #### [place] [address] [place], [place] Sodium [Moles/Vol] 138 mmol/L Normal 135-145 [facility] Comment on above: Performed By: #### E TOH4 #### [place] [address] [place], [place] Chloride [Moles/Vol] 106 mmol/L Normal 98-107 [facility] Comment on above: Performed By: #### E TOH4 #### [place] [place], [place] C-Reactive Proteinon 021 CRP [Mass/Vol] mg/L Normal 0.0-6.0 [facility] Comment on above: Result Comment: . Performed By: #### M G3, PHOS3, HEMDF, BMP3M #### [address] [place] [address] Comp Metabolic Panelon 11-15 ALP [Catalytic activity/Vol] 75 U/L Normal 38-126 [facility] Comment on above: Performed By: #### M G3, PHOS3, HEMDF, BMP3M #### [address] [place] [address] ALT [Catalytic activity/Vol] 13 U/L Normal 0-34 [facility] Comment on above: Result Comment: The ALT test is performed by an updated assay method. Please note that the reference intervals have been changed and are now sex specific. Performed By: #### M G3, PHOS3, HEMDF, BMP3M #### [place] [address] [place], [place] Anion Gap 6 Normal [facility] Comment on above: Performed By: #### M G3, PHOS3, HEMDF, BMP3M #### [place] [address] [place], [place] AST [Catalytic activity/Vol] 28 U/L Normal 15-46 [facility] Comment on above: Performed By: #### M G3, PHOS3, HEMDF, BMP3M #### [address] [place] Calcium [Mass/Vol] 9.2 mg/dL Normal 8.4-10.4 [facility] Comment on above: Performed By: #### M G3, PHOS3, HEMDF, BMP3M #### [place] [address] [place] CO2 [Moles/Vol] 23 mmol/L Normal 22-30 [facility] Comment on above: Performed By: #### M G3, PHOS3, HEMDF, BMP3M #### [address] [address] [place], [place] Glucose [Mass/Vol] 90 mg/dL Normal 70-100 [facility] Comment on above: Performed By: #### M G3, PHOS3, HEMDF, BMP3M #### [place] [place] Protein [Mass/Vol] 6.4 g/dL Normal 6.3-8.2 [facility] Comment on above: Performed By: #### M G3, PHOS3, HEMDF, BMP3M #### [place] [address] [place], [place] Urea nitrogen [Mass/Vol] 10 mg/dL Normal 7-20 [facility] Comment on above: Performed By: #### M G3, PHOS3, HEMDF, BMP3M #### [address] [place] Bilirubin [Mass/Vol] 0.4 mg/dL Normal 0.2-1.3 [facility] Comment on above: Performed By: #### M G3, PHOS3, HEMDF, BMP3M #### [facility] [address] [place], [place] Creatinine [Mass/Vol] 0.46 mg/dL Low 0.52-1.25 [facility] Comment on above: Performed By: #### M G3, PHOS3, HEMDF, BMP3M #### [address] [address] [place], [place] eGFR OTHER > 90.0 Normal >60 [facility] Comment on above: Result Comment: KDIG [...] #### M G3, PHOS3, HEMDF, BMP3M #### [facility] [address] [place], [place] GFR/1.73 sq M.predicted among blacks MDRD (S/P/Bld) [Vol rate/Area] mL/min/{1.73_m2} Normal >60 [facility] Comment on above: Performed By: #### M G3, PHOS3, HEMDF, BMP3M #### [address] [address] [place], [place] Potassium [Moles/Vol] 3.7 mmol/L Normal 3.5-5.1 [facility] Comment on above: Performed By: #### M G3, PHOS3, HEMDF, BMP3M #### [place] [address] [place] Sodium [Moles/Vol] 137 mmol/L Normal 135-145 [facility] Comment on above: Performed By: #### M G3, PHOS3, HEMDF, BMP3M #### [address] [place] Albumin [Mass/Vol] 3.6 g/dL Normal 3.5-5.0 [facility] Comment on above: Performed By: #### M G3, PHOS3, HEMDF, BMP3M #### [address] [place], [place] Chloride [Moles/Vol] 108 mmol/L High 98-107 [facility] Comment on above: Performed By: #### M G3, PHOS3, HEMDF, BMP3M #### [place] [address] [place], [place] D-Dimer, Innovanceon 021 D-Dimer, Innovance 3.24 mg/L High 0.00-0.50 [facility] Comment on above: Result Comment: Inno walton D-Dimer values of <0.50 mg/L FEU can be used in combination with a pre-test probability model (e.g. Well's) to exclude pulmonary embolism (PE) disease, as well as an aid in the diagnosis of deep vein thrombosis (DVT). Performed By: #### M G3, PHOS3, HEMDF, BMP3M #### [address] [place], [place] Hemogram w/ Autodiffon 11-15 Abs Baso Cnt 0.1 10*3/uL Normal 0.0-0.2 [facility] Comment on above: Performed By: #### M G3, PHOS3, HEMDF, BMP3M #### [address] [place], [place] Abs Neutrophile Cnt 3.1 10*3/uL Normal 1.8-7.0 [facility] Comment on above: Performed By: #### M G3, PHOS3, HEMDF, BMP3M #### [address] [address] [place], [place] Basophils/100 WBC (Bld) 1.1 % Normal 0.0-2.0 [facility] Comment on above: Performed By: #### M G3, PHOS3, HEMDF, BMP3M #### [address] [address] [place], [place] Eosinophils (Bld) [#/Vol] 0.1 10*3/uL Normal 0.0-0.5 [facility] Comment on above: Performed By: #### M G3, PHOS3, HEMDF, BMP3M #### [address] Eosinophils/100 WBC (Bld) 2.3 % Normal 1.0-6.0 [facility] Comment on above: Performed By: #### M G3, PHOS3, HEMDF, BMP3M #### [address] Erythrocyte distribution width (RBC) [Ratio] 14.4 % Normal 11.5-14.5 [facility] Comment on above: Performed By: #### M G3, PHOS3, HEMDF, BMP3M #### [address] Granulocytes/100 WBC (Bld) 50.5 % Normal 40.0-80.0 [facility] Comment on above: Performed By: #### M G3, PHOS3, HEMDF, BMP3M #### [address] [address] [place], [place] Hematocrit (Bld) [Volume fraction] 38.3 % Normal 35.0-47.0 [facility] Comment on above: Performed By: #### M G3, PHOS3, HEMDF, BMP3M #### [address] Hemoglobin (Bld) [Mass/Vol] 12.7 g/dL Normal 11.7-16.0 [facility] Comment on above: Performed By: #### M G3, PHOS3, HEMDF, BMP3M #### [address] [place] Lymphocytes (Bld) [#/Vol] 2.0 10*3/uL Normal 1.0-4.3 [facility] Comment on above: Performed By: #### M G3, PHOS3, HEMDF, BMP3M #### [address] [place] Lymphocytes/100 WBC (Bld) 32.3 % Normal 20.0-40.0 [facility] Comment on above: Performed By: #### M G3, PHOS3, HEMDF, BMP3M #### [address] [place], [place] MCH (RBC) [Entitic mass] 33.5 pg Normal 26.0-34.0 [facility] Comment on above: Performed By: #### M G3, PHOS3, HEMDF, BMP3M #### [address] [place] MCHC 33.1 % Normal 32.0-36.0 [facility] Comment on above: Performed By: #### M G3, PHOS3, HEMDF, BMP3M #### [address] [place] MCV (RBC) [Entitic vol] 101.1 fL High 79.0-98.0 [facility] Comment on above: Performed By: #### M G3, PHOS3, HEMDF, BMP3M #### [address] [place] Monocytes (Bld) [#/Vol] 0.8 10*3/uL Normal 0.0-0.8 [facility] Comment on above: Performed By: #### M G3, PHOS3, HEMDF, BMP3M #### [address] Monocytes/100 WBC (Bld) 13.8 % High 2.0-10.0 [facility] Comment on above: Performed By: #### M G3, PHOS3, HEMDF, BMP3M #### [facility] [address] [place], [place] Platelet mean volume (Bld) [Entitic vol] 9.2 fL Normal 7.4-10.4 [facility] Comment on above: Performed By: #### M G3, PHOS3, HEMDF, BMP3M #### [address] [place], [place] Platelets (Bld) [#/Vol] 161 10*3/uL Normal 140-440 [facility] Comment on above: Performed By: #### M G3, PHOS3, HEMDF, BMP3M #### [address] [place], [place] RBC (Bld) [#/Vol] 3.79 10*6/uL Low 3.80-5.20 [facility] Comment on above: Performed By: #### M G3, PHOS3, HEMDF, BMP3M #### [address] [place] WBC (Bld) [#/Vol] 6.1 10*3/uL Normal 3.6-10.7 [facility] Comment on above: Performed By: #### M G3, PHOS3, HEMDF, BMP3M #### [address] [place] APTTon 11-14-2020 aPTT Coag (Bld) [Time] 25.3 s Normal 20.0-30.5 [facility] Comment on above: Result Comment: NOTE : The therapeutic time for Heparin anticoagulation, based on Xa activity inhibition, is an APTT of 46-80 seconds. Performed By: #### M G3, PHOS3, HEMDF, BMP3M #### [address] [place], [place] C-Reactive Proteinon 021 CRP [Mass/Vol] 10.9 mg/L High 0.0-6.0 [facility] Comment on above: Result Comment: . Performed By: #### M G3, PHOS3, HEMDF, BMP3M #### [address] [place], [place] Comp Metabolic Panelon 11-14 ALP [Catalytic activity/Vol] 79 U/L Normal 38-126 [facility] Comment on above: Performed By: #### M G3, PHOS3, HEMDF, BMP3M #### [address] [place], [place] ALT [Catalytic activity/Vol] 11 U/L Normal 0-34 [facility] Comment on above: Result Comment: The ALT test is performed by an updated assay method. Please note that the reference intervals have been changed and are now sex specific. Performed By: #### M G3, PHOS3, HEMDF, BMP3M #### [address] [place], [place] Anion Gap 9 Normal [facility] Comment on above: Performed By: #### M G3, PHOS3, HEMDF, BMP3M #### [address] [place] AST [Catalytic activity/Vol] 25 U/L Normal 15-46 [facility] Comment on above: Performed By: #### M G3, PHOS3, HEMDF, BMP3M #### [address] [place] Bilirubin [Mass/Vol] 0.4 mg/dL Normal 0.2-1.3 [facility] Comment on above: Performed By: #### M G3, PHOS3, HEMDF, BMP3M #### [address] [place] Calcium [Mass/Vol] 9.0 mg/dL Normal 8.4-10.4 [facility] Comment on above: Performed By: #### M G3, PHOS3, HEMDF, BMP3M #### [place] [address] [place] CO2 [Moles/Vol] 20 mmol/L Low 22-30 [facility] Comment on above: Performed By: #### M G3, PHOS3, HEMDF, BMP3M #### [address] [place], [place] Glucose [Mass/Vol] 94 mg/dL Normal 70-100 [facility] Comment on above: Performed By: #### M G3, PHOS3, HEMDF, BMP3M #### [address] [address] [place], [place] Protein [Mass/Vol] 6.2 g/dL Low 6.3-8.2 [facility] Comment on above: Performed By: #### M G3, PHOS3, HEMDF, BMP3M #### [address] [address] [place], [place] Urea nitrogen [Mass/Vol] 16 mg/dL Normal 7-20 [facility] Comment on above: Performed By: #### M G3, PHOS3, HEMDF, BMP3M #### [address] Creatinine [Mass/Vol] 0.51 mg/dL Low 0.52-1.25 [facility] Comment on above: Performed By: #### M G3, PHOS3, HEMDF, BMP3M #### [address] [address] [place], [place] eGFR OTHER > 90.0 Normal >60 [facility] Comment on above: Result Comment: KDIG [...] #### M G3, PHOS3, HEMDF, BMP3M #### [address] [place], [place] GFR/1.73 sq M.predicted among blacks MDRD (S/P/Bld) [Vol rate/Area] mL/min/{1.73_m2} Normal >60 [facility] Comment on above: Performed By: #### M G3, PHOS3, HEMDF, BMP3M #### [address] [place] Potassium [Moles/Vol] 3.9 mmol/L Normal 3.5-5.1 [facility] Comment on above: Performed By: #### M G3, PHOS3, HEMDF, BMP3M #### [address] [place] Albumin [Mass/Vol] 3.4 g/dL Low 3.5-5.0 [facility] Comment on above: Performed By: #### M G3, PHOS3, HEMDF, BMP3M #### [address] [place] Chloride [Moles/Vol] 109 mmol/L High 98-107 [facility] Comment on above: Performed By: #### M G3, PHOS3, HEMDF, BMP3M #### [address] [place] Sodium [Moles/Vol] 137 mmol/L Normal 135-145 [facility] Comment on above: Performed By: #### M G3, PHOS3, HEMDF, BMP3M #### [address] [place], [place] D-Dimer, Innovanceon 11-14-2 021 D-Dimer, Innovance 3.00 mg/L High 0.00-0.50 [facility] Comment on above: Result Comment: In[place] D-Dimer values of <0.50 mg/L FEU can be used in combination with a pre-test probability model (e.g. Well's) to exclude pulmonary embolism (PE) disease, as well as an aid in the diagnosis of deep vein thrombosis (DVT). Performed By: #### M G3, PHOS3, HEMDF, BMP3M #### [address] [place] Ferritinon 11-14-2020 Ferritin [Mass/Vol] 165 ng/mL Normal 8-252 [facility] Comment on above: Performed By: #### M G3, PHOS3, HEMDF, BMP3M #### [facility] [address] [place], [place] Fibrinogenon 11-14-2020 Fibrinogen 414 mg/dL High 200-400 [facility] Comment on above: Performed By: #### M G3, PHOS3, HEMDF, BMP3M #### [facility] [address] [place], [place] Folateon 11-14-2020 Folate 16.6 ng/mL Normal 2.8-20.0 [facility] Comment on above: Performed By: #### M G3, PHOS3, HEMDF, BMP3M #### [address] [place], [place] Hemogram w/ Autodiffon 11-14 Abs Baso Cnt 0.0 10*3/uL Normal 0.0-0.2 [facility] Comment on above: Performed By: #### A PTT, FIBGN, LDH3, DDI2, B12, CMP3, FERR3, HEMDF, CRP2, PT, FOLT3 #### [facility] [address] [place], [place] #### VD25H #### [facility] [address] [place] [address] Abs Neutrophile Cnt 3.4 10*3/uL Normal 1.8-7.0 [facility] Comment on above: Performed By: #### A PTT, FIBGN, LDH3, DDI2, B12, CMP3, FERR3, HEMDF, CRP2, PT, FOLT3 #### [facility] [address] [place], [place] #### VD25H #### [facility] [address] [place] [address] Basophils/100 WBC (Bld) 0.6 % Normal 0.0-2.0 [facility] Comment on above: Performed By: #### A PTT, FIBGN, LDH3, DDI2, B12, CMP3, FERR3, HEMDF, CRP2, PT, FOLT3 #### [address] #### VD25H #### [facility] [address] [place] [address] Eosinophils (Bld) [#/Vol] 0.1 10*3/uL Normal 0.0-0.5 [facility] Comment on above: Performed By: #### A PTT, FIBGN, LDH3, DDI2, B12, CMP3, FERR3, HEMDF, CRP2, PT, FOLT3 #### [address] #### VD25H #### [facility] [address] [place] [address] Eosinophils/100 WBC (Bld) 1.3 % Normal 1.0-6.0 [facility] Comment on above: Performed By: #### A PTT, FIBGN, LDH3, DDI2, B12, CMP3, FERR3, HEMDF, CRP2, PT, FOLT3 #### [address] #### VD25H #### [facility] [address] [place] [address] Erythrocyte distribution width (RBC) [Ratio] 14.3 % Normal 11.5-14.5 [facility] Comment on above: Performed By: #### A PTT, FIBGN, LDH3, DDI2, B12, CMP3, FERR3, HEMDF, CRP2, PT, FOLT3 #### [address] #### VD25H #### [facility] [address] [place] [address] Granulocytes/100 WBC (Bld) 61.9 % Normal 40.0-80.0 [facility] Comment on above: Performed By: #### A PTT, FIBGN, LDH3, DDI2, B12, CMP3, FERR3, HEMDF, CRP2, PT, FOLT3 #### [address] #### VD25H #### [facility] [address] [place] [address] Hematocrit (Bld) [Volume fraction] 36.2 % Normal 35.0-47.0 [facility] Comment on above: Performed By: #### A PTT, FIBGN, LDH3, DDI2, B12, CMP3, FERR3, HEMDF, CRP2, PT, FOLT3 #### [address] #### VD25H #### [facility] [address] [place] [address] Hemoglobin (Bld) [Mass/Vol] 12.1 g/dL Normal 11.7-16.0 [facility] Comment on above: Performed By: #### A PTT, FIBGN, LDH3, DDI2, B12, CMP3, FERR3, HEMDF, CRP2, PT, FOLT3 #### [address] #### VD25H #### [place] [address] [place] [address] Lymphocytes (Bld) [#/Vol] 1.3 10*3/uL Normal 1.0-4.3 [facility] Comment on above: Performed By: #### A PTT, FIBGN, LDH3, DDI2, B12, CMP3, FERR3, HEMDF, CRP2, PT, FOLT3 #### [address] #### VD25H #### [facility] [address] [place] [address] Lymphocytes/100 WBC (Bld) 24.2 % Normal 20.0-40.0 [facility] Comment on above: Performed By: #### A PTT, FIBGN, LDH3, DDI2, B12, CMP3, FERR3, HEMDF, CRP2, PT, FOLT3 #### [address] #### VD25H #### [place] [address] [place] [address] MCH (RBC) [Entitic mass] 33.6 pg Normal 26.0-34.0 [facility] Comment on above: Performed By: #### A PTT, FIBGN, LDH3, DDI2, B12, CMP3, FERR3, HEMDF, CRP2, PT, FOLT3 #### [facility] [address] [place], [place] #### VD25H #### [facility] [address] [place] [address] MCHC 33.5 % Normal 32.0-36.0 [facility] Comment on above: Performed By: #### A PTT, FIBGN, LDH3, DDI2, B12, CMP3, FERR3, HEMDF, CRP2, PT, FOLT3 #### [address] #### VD25H #### [facility] [address] [place] MCV (RBC) [Entitic vol] 100.2 fL High 79.0-98.0 [facility] Comment on above: Performed By: #### A PTT, FIBGN, LDH3, DDI2, B12, CMP3, FERR3, HEMDF, CRP2, PT, FOLT3 #### [facility] [address] [place], [place] #### VD25H #### [facility] [address] [place] [address] Monocytes (Bld) [#/Vol] 0.7 10*3/uL Normal 0.0-0.8 [facility] Comment on above: Performed By: #### A PTT, FIBGN, LDH3, DDI2, B12, CMP3, FERR3, HEMDF, CRP2, PT, FOLT3 #### [address] #### VD25H #### [facility] [address] [place] [address] Monocytes/100 WBC (Bld) 12.0 % High 2.0-10.0 [facility] Comment on above: Performed By: #### A PTT, FIBGN, LDH3, DDI2, B12, CMP3, FERR3, HEMDF, CRP2, PT, FOLT3 #### [facility] [address] [place], [place] #### VD25H #### [facility] [address] [place] [address] Platelet mean volume (Bld) [Entitic vol] 9.7 fL Normal 7.4-10.4 [facility] Comment on above: Performed By: #### A PTT, FIBGN, LDH3, DDI2, B12, CMP3, FERR3, HEMDF, CRP2, PT, FOLT3 #### [address] #### VD25H #### [facility] [address] [place] [address] Platelets (Bld) [#/Vol] 138 10*3/uL Low 140-440 [facility] Comment on above: Performed By: #### A PTT, FIBGN, LDH3, DDI2, B12, CMP3, FERR3, HEMDF, CRP2, PT, FOLT3 #### [address] #### VD25H #### [facility] [address] [place] [address] RBC (Bld) [#/Vol] 3.62 10*6/uL Low 3.80-5.20 [facility] Comment on above: Performed By: #### A PTT, FIBGN, LDH3, DDI2, B12, CMP3, FERR3, HEMDF, CRP2, PT, FOLT3 #### [address] #### VD25H #### [facility] [facility] [address] [place] [address] WBC (Bld) [#/Vol] 5.4 10*3/uL Normal 3.6-10.7 [facility] Comment on above: Performed By: #### A PTT, FIBGN, LDH3, DDI2, B12, CMP3, FERR3, HEMDF, CRP2, PT, FOLT3 #### [facility] [address] [place], [place] #### [id number] #### [facility] [address] [place] [address] LDHon 11-14-2020 LDH 175 U/L Normal 120-246 [facility] Comment on above: Performed By: #### M G3, PHOS3, HEMDF, BMP3M #### [facility] [address] [place], [place] Procalcitoninon 11-14-2020 Procalcitonin < 0.10 Normal <0.10 [facility] Comment on above: Performed By: #### E TOH4 #### [address] [place], [place] Prothrombin Timeon INR 1.0 Normal 0.9-1.1 [facility] Comment on above: Result Comment: Daniel [...] #### M G3, PHOS3, HEMDF, BMP3M #### [facility] [address] [place], [place] PT Coag (PPP) [Time] 10.9 s Normal 9.0-12.0 [facility] Comment on above: Result Comment: . Performed By: #### M G3, PHOS3, HEMDF, BMP3M #### [facility] [address] [place], [place] Vit D 25-OH, Totalon 021 Vit D 25-OH, Total 25 ng/mL Low 30-100 [facility] Comment on above: Result Comment: Ther apy is based on measurement of Total 25- OHD with the following classification levels: Less than 20 ng/mL: Indicative of Vit D deficiency 20-30 ng/mL: Suggests Vit D insufficiency Optimal: Greater than or equal to 30 ng/mL Test performed by FiberLight Competitive Immunoassay, measuring Total Vitamin D, not individual fractions. Performed By: #### M G3, PHOS3, HEMDF, BMP3M #### [facility] [address] [place] [address] Vitamin B12on 11-14-2020 Cobalamin (Vitamin B12) [Mass/Vol] 986 pg/mL High 239-931 [facility] Comment on above: Performed By: #### M G3, PHOS3, HEMDF, BMP3M #### [facility] [address] [place] [address] Add on test from HISon 11-13 Add on test from HIS Accepted Normal [facility] Comment on above: Result Comment: Spec imen available & acceptable for analysis. Performed By: #### M G3, PHOS3, HEMDF, BMP3M #### [facility] [address] [place] [address] CR Chest Portableon 11-13-19 CR Chest Portable Patient Name: JAZMIN JOHNSON Diagnostic Radiology ACCESSION EXAM DATE/TIME PROCEDURE ORDERING PROVIDER [id number] 11/13/2020 07:39 EST CR Chest Portable MD LITTLE ALEKSANDAR CPT code 35197 Reason For Exam (CR Chest Portable) r/o [...] Transcribed Date and Time: 11/13/2020 7:23 Normal [facility] LEGIONELLA AG, URINEon 11-13 LEGIONELLA AG, URINE Not detected Normal [facility] Comment on above: Performed By: #### M G3, PHOS3, HEMDF, BMP3M #### [facility] [address] [place] [address] Phenobarbitalon 11-13-2020 PHENobarbital [Mass/Vol] 17.2 ug/mL Normal 15.0-40.0 [facility] Comment on above: Performed By: #### N A3 #### [facility] [address] [place] [address] Procalcitoninon 11-13-2020 Interpretation See Below Normal [facility] Comment on above: Result Comment: PCT <0.50 = Low risk of severe sepsis and/or septic shock. PCT >2.00 = High risk of severe sepsis and/or septic shock. Performed By: #### E TOH4 #### [facility] [address] [place] [address] STREP PNEUMO ANTIGEN, URINEo n 11-13-2020 STREP PNEUMO ANTIGEN, URINE Not detected Normal [facility] Comment on above: Performed By: #### M G3, PHOS3, HEMDF, BMP3M #### [address] [place] [address] Staph Aureus Complete Nasalo n 11-13-2020 Staph Aureus Complete Nasal Staph Screen --> Status: F No S. aureus detected. Negative nasal MRSA PCR has a high negative predictive value for MRSA pneumonia. Consider stopping vancomycin if no other clinical indication. Contact Antimicrobial Stewardship for further recommendations. The analytical performance characteristics of this assay have been [facility] in accordance with CLIA regulations. The modifications [...] of this assay have been determined by [facility] in accordance with CLIA regulations. The modifications have not been cleared or approved by the U. S. Food and Drug Administration; however, the FDA has determined that such clearance or approval is not necessary. Normal [facility] Comment on above: Performed By: #### M G3, PHOS3, HEMDF, BMP3M #### [facility] [address] [place], [place] Basic Metabolic Panelon 01-3 0-2020 Anion Gap 3 Normal [facility] Comment on above: Performed By: #### M G3, PHOS3, HEMDF, BMP3M #### [address] [place], [place] Calcium [Mass/Vol] 8.8 mg/dL Normal 8.4-10.4 [facility] Comment on above: Performed By: #### M G3, PHOS3, HEMDF, BMP3M #### [address] [place], [place] CO2 [Moles/Vol] 24 mmol/L Normal 22-30 [facility] Comment on above: Performed By: #### M G3, PHOS3, HEMDF, BMP3M #### [address] [place], [place] Glucose [Mass/Vol] 97 mg/dL Normal 70-100 [facility] Comment on above: Performed By: #### M G3, PHOS3, HEMDF, BMP3M #### [address] [place], [place] Urea nitrogen [Mass/Vol] 9 mg/dL Normal 7-20 [facility] Comment on above: Performed By: #### M G3, PHOS3, HEMDF, BMP3M #### [address] [place], [place] Creatinine [Mass/Vol] 0.39 mg/dL Low 0.52-1.25 [facility] Comment on above: Performed By: #### M G3, PHOS3, HEMDF, BMP3M #### [address] [place], [place] eGFR OTHER > 90.0 Normal >60 [facility] Comment on above: Result Comment: KDIG [...] #### M G3, PHOS3, HEMDF, BMP3M #### [address] GFR/1.73 sq M.predicted among blacks MDRD (S/P/Bld) [Vol rate/Area] mL/min/{1.73_m2} Normal >60 [facility] Comment on above: Performed By: #### M G3, PHOS3, HEMDF, BMP3M #### [address] [address] Potassium [Moles/Vol] 3.6 mmol/L Normal 3.5-5.1 [facility] Comment on above: Performed By: #### M G3, PHOS3, HEMDF, BMP3M #### [address] [address] Chloride [Moles/Vol] 105 mmol/L Normal 98-107 [facility] Comment on above: Performed By: #### M G3, PHOS3, HEMDF, BMP3M #### [address] [address] Sodium [Moles/Vol] 132 mmol/L Low 135-145 [facility] Comment on above: Performed By: #### M G3, PHOS3, HEMDF, BMP3M #### [address] [place], [place] Free T4on 11-12-2020 Free T4 [Mass/Vol] 1.05 ng/dL Normal 0.78-2.19 [facility] Comment on above: Performed By: #### B MP3 #### [address] [place], [place] Hemogram w/ Autodiffon 11-12 Abs Baso Cnt 0.1 10*3/uL Normal 0.0-0.2 [facility] Comment on above: Performed By: #### M G3, PHOS3, HEMDF, BMP3M #### [address] [address] [place], [place] Abs Neutrophile Cnt 3.7 10*3/uL Normal 1.8-7.0 [facility] Comment on above: Performed By: #### M G3, PHOS3, HEMDF, BMP3M #### [address] [address] [place], [place] Basophils/100 WBC (Bld) 1.0 % Normal 0.0-2.0 [facility] Comment on above: Performed By: #### M G3, PHOS3, HEMDF, BMP3M #### [address] [place], [place] Eosinophils (Bld) [#/Vol] 0.2 10*3/uL Normal 0.0-0.5 [facility] Comment on above: Performed By: #### M G3, PHOS3, HEMDF, BMP3M #### [address] Eosinophils/100 WBC (Bld) 2.6 % Normal 1.0-6.0 [facility] Comment on above: Performed By: #### M G3, PHOS3, HEMDF, BMP3M #### [address] Erythrocyte distribution width (RBC) [Ratio] 14.2 % Normal 11.5-14.5 [facility] Comment on above: Performed By: #### M G3, PHOS3, HEMDF, BMP3M #### [address] [place], [place] Granulocytes/100 WBC (Bld) 63.1 % Normal 40.0-80.0 [facility] Comment on above: Performed By: #### M G3, PHOS3, HEMDF, BMP3M #### [address] [address] [place], [place] Hematocrit (Bld) [Volume fraction] 38.6 % Normal 35.0-47.0 [facility] Comment on above: Performed By: #### M G3, PHOS3, HEMDF, BMP3M #### [address] [address] [place], [place] Hemoglobin (Bld) [Mass/Vol] 13.1 g/dL Normal 11.7-16.0 [facility] Comment on above: Performed By: #### M G3, PHOS3, HEMDF, BMP3M #### [address] Lymphocytes (Bld) [#/Vol] 1.3 10*3/uL Normal 1.0-4.3 [facility] Comment on above: Performed By: #### M G3, PHOS3, HEMDF, BMP3M #### [address] Lymphocytes/100 WBC (Bld) 22.9 % Normal 20.0-40.0 [facility] Comment on above: Performed By: #### M G3, PHOS3, HEMDF, BMP3M #### [address] MCH (RBC) [Entitic mass] 33.7 pg Normal 26.0-34.0 [facility] Comment on above: Performed By: #### M G3, PHOS3, HEMDF, BMP3M #### [address] MCHC 34.0 % Normal 32.0-36.0 [facility] Comment on above: Performed By: #### M G3, PHOS3, HEMDF, BMP3M #### [address] [place], [place] MCV (RBC) [Entitic vol] 99.1 fL High 79.0-98.0 [facility] Comment on above: Performed By: #### M G3, PHOS3, HEMDF, BMP3M #### [address] [place], [place] Monocytes (Bld) [#/Vol] 0.6 10*3/uL Normal 0.0-0.8 [facility] Comment on above: Performed By: #### M G3, PHOS3, HEMDF, BMP3M #### [address] [place], [place] Monocytes/100 WBC (Bld) 10.4 % High 2.0-10.0 [facility] Comment on above: Performed By: #### M G3, PHOS3, HEMDF, BMP3M #### [address] [place], [place] Platelet mean volume (Bld) [Entitic vol] 8.7 fL Normal 7.4-10.4 [facility] Comment on above: Performed By: #### M G3, PHOS3, HEMDF, BMP3M #### [address] [place], [place] Platelets (Bld) [#/Vol] 133 10*3/uL Low 140-440 [facility] Comment on above: Performed By: #### M G3, PHOS3, HEMDF, BMP3M #### [address] [place] RBC (Bld) [#/Vol] 3.90 10*6/uL Normal 3.80-5.20 [facility] Comment on above: Performed By: #### M G3, PHOS3, HEMDF, BMP3M #### [address] [place], [place] WBC (Bld) [#/Vol] 5.9 10*3/uL Normal 3.6-10.7 [facility] Comment on above: Performed By: #### M G3, PHOS3, HEMDF, BMP3M #### [facility] [address] [place], [place] Thyroid Stim. Hormoneon 10-16 Thyroid Stim. Hormone 3.729 u[IU]/mL Normal 0.465-4.68 0 [facility] Comment on above: Performed By: #### B MP3 #### [address] [place], [place] Basic Metabolic Panelon 10-15 Calcium [Mass/Vol] 8.6 mg/dL Normal 8.4-10.4 [facility] Comment on above: Performed By: #### M G3, PHOS3, HEMDF, BMP3M #### [address] [place], [place] Glucose [Mass/Vol] 74 mg/dL Normal 70-100 [facility] Comment on above: Performed By: #### M G3, PHOS3, HEMDF, BMP3M #### [address] [place], [place] Anion Gap 8 Normal [facility] Comment on above: Performed By: #### M G3, PHOS3, HEMDF, BMP3M #### [address] [place], [place] CO2 [Moles/Vol] 21 mmol/L Low 22-30 [facility] Comment on above: Performed By: #### M G3, PHOS3, HEMDF, BMP3M #### [address] [place], [place] Creatinine [Mass/Vol] 0.42 mg/dL Low 0.52-1.25 [facility] Comment on above: Performed By: #### M G3, PHOS3, HEMDF, BMP3M #### [address] [place], [place] eGFR OTHER > 90.0 Normal >60 [facility] Comment on above: Result Comment: KDIG [...] #### M G3, PHOS3, HEMDF, BMP3M #### [address] GFR/1.73 sq M.predicted among blacks MDRD (S/P/Bld) [Vol rate/Area] mL/min/{1.73_m2} Normal >60 [facility] Comment on above: Performed By: #### M G3, PHOS3, HEMDF, BMP3M #### [address] Urea nitrogen [Mass/Vol] 4 mg/dL Low 7-20 [facility] Comment on above: Performed By: #### Ruben G3, PHOS3, HEMDF, BMP3M #### [address] Chloride [Moles/Vol] 104 mmol/L Normal 98-107 [facility] Comment on above: Performed By: #### M G3, PHOS3, HEMDF, BMP3M #### [address] Potassium [Moles/Vol] 3.7 mmol/L Normal 3.5-5.1 [facility] Comment on above: Performed By: #### M G3, PHOS3, HEMDF, BMP3M #### [address] Sodium [Moles/Vol] 133 mmol/L Low 135-145 [facility] Comment on above: Performed By: #### Ruben G3, PHOS3, HEMDF, BMP3M #### [address] [place], [place] Hemogram w/ Autodiffon 11-11 Abs Baso Cnt 0.1 10*3/uL Normal 0.0-0.2 [facility] Comment on above: Performed By: #### M G3, PHOS3, HEMDF, BMP3M #### [address] [address] [place], [place] Abs Neutrophile Cnt 3.7 10*3/uL Normal 1.8-7.0 [facility] Comment on above: Performed By: #### M G3, PHOS3, HEMDF, BMP3M #### [address] Basophils/100 WBC (Bld) 1.0 % Normal 0.0-2.0 [facility] Comment on above: Performed By: #### M G3, PHOS3, HEMDF, BMP3M #### [address] Eosinophils (Bld) [#/Vol] 0.2 10*3/uL Normal 0.0-0.5 [facility] Comment on above: Performed By: #### M G3, PHOS3, HEMDF, BMP3M #### [address] [address] [place], [place] Eosinophils/100 WBC (Bld) 2.9 % Normal 1.0-6.0 [facility] Comment on above: Performed By: #### M G3, PHOS3, HEMDF, BMP3M #### [address] Erythrocyte distribution width (RBC) [Ratio] 14.9 % High 11.5-14.5 [facility] Comment on above: Performed By: #### M G3, PHOS3, HEMDF, BMP3M #### [address] Granulocytes/100 WBC (Bld) 64.2 % Normal 40.0-80.0 [facility] Comment on above: Performed By: #### M G3, PHOS3, HEMDF, BMP3M #### [address] [place] Hematocrit (Bld) [Volume fraction] 42.7 % Normal 35.0-47.0 [facility] Comment on above: Performed By: #### M G3, PHOS3, HEMDF, BMP3M #### [address] [place] Hemoglobin (Bld) [Mass/Vol] 14.3 g/dL Normal 11.7-16.0 [facility] Comment on above: Performed By: #### M G3, PHOS3, HEMDF, BMP3M #### [address] [address] [place], [place] Lymphocytes (Bld) [#/Vol] 1.3 10*3/uL Normal 1.0-4.3 [facility] Comment on above: Performed By: #### M G3, PHOS3, HEMDF, BMP3M #### [address] [address] [place], [place] Lymphocytes/100 WBC (Bld) 22.0 % Normal 20.0-40.0 [facility] Comment on above: Performed By: #### M G3, PHOS3, HEMDF, BMP3M #### [address] MCH (RBC) [Entitic mass] 33.5 pg Normal 26.0-34.0 [facility] Comment on above: Performed By: #### M G3, PHOS3, HEMDF, BMP3M #### [address] [place] MCHC 33.4 % Normal 32.0-36.0 [facility] Comment on above: Performed By: #### M G3, PHOS3, HEMDF, BMP3M #### [address] MCV (RBC) [Entitic vol] 100.2 fL High 79.0-98.0 [facility] Comment on above: Performed By: #### M G3, PHOS3, HEMDF, BMP3M #### [address] [place] Monocytes (Bld) [#/Vol] 0.6 10*3/uL Normal 0.0-0.8 [facility] Comment on above: Performed By: #### M G3, PHOS3, HEMDF, BMP3M #### [address] [place], [place] Monocytes/100 WBC (Bld) 9.9 % Normal 2.0-10.0 [facility] Comment on above: Performed By: #### M G3, PHOS3, HEMDF, BMP3M #### [address] [place] Platelet mean volume (Bld) [Entitic vol] 9.1 fL Normal 7.4-10.4 [facility] Comment on above: Performed By: #### M G3, PHOS3, HEMDF, BMP3M #### [address] [place], [place] Platelets (Bld) [#/Vol] 143 10*3/uL Normal 140-440 [facility] Comment on above: Performed By: #### M G3, PHOS3, HEMDF, BMP3M #### [address] [place] RBC (Bld) [#/Vol] 4.26 10*6/uL Normal 3.80-5.20 [facility] Comment on above: Performed By: #### M G3, PHOS3, HEMDF, BMP3M #### [address] [place] WBC (Bld) [#/Vol] 5.8 10*3/uL Normal 3.6-10.7 [facility] Comment on above: Performed By: #### M G3, PHOS3, HEMDF, BMP3M #### [address] [address] [place], [place] Basic Metabolic Panelon 2 Calcium [Mass/Vol] 8.4 mg/dL Normal 8.4-10.4 [facility] Comment on above: Performed By: #### M G3, PHOS3, HEMDF, BMP3M #### [facility] [address] [place], [place] Glucose [Mass/Vol] 66 mg/dL Low 70-100 [facility] Comment on above: Performed By: #### M G3, PHOS3, HEMDF, BMP3M #### [facility] [address] [place], [place] Anion Gap 9 Normal [facility] Comment on above: Performed By: #### M G3, PHOS3, HEMDF, BMP3M #### [facility] [address] [place], [place] CO2 [Moles/Vol] 20 mmol/L Low 22-30 [facility] Comment on above: Performed By: #### M G3, PHOS3, HEMDF, BMP3M #### [facility] [address] [place], [place] Creatinine [Mass/Vol] 0.38 mg/dL Low 0.52-1.25 [facility] Comment on above: Performed By: #### M G3, PHOS3, HEMDF, BMP3M #### [facility] [address] [place], [place] eGFR OTHER > 90.0 Normal >60 [facility] Comment on above: Result Comment: KDIG [...] #### M G3, PHOS3, HEMDF, BMP3M #### [facility] [address] [place], [place] GFR/1.73 sq M.predicted among blacks MDRD (S/P/Bld) [Vol rate/Area] mL/min/{1.73_m2} Normal >60 [facility] Comment on above: Performed By: #### M G3, PHOS3, HEMDF, BMP3M #### [address] [place] Urea nitrogen [Mass/Vol] 6 mg/dL Low 7-20 [facility] Comment on above: Performed By: #### M G3, PHOS3, HEMDF, BMP3M #### [address] [place] Chloride [Moles/Vol] 107 mmol/L Normal 98-107 [facility] Comment on above: Performed By: #### M G3, PHOS3, HEMDF, BMP3M #### [address] [place] Potassium [Moles/Vol] 3.8 mmol/L Normal 3.5-5.1 [facility] Comment on above: Performed By: #### M G3, PHOS3, HEMDF, BMP3M #### [address] [place] Sodium [Moles/Vol] 136 mmol/L Normal 135-145 [facility] Comment on above: Performed By: #### M G3, PHOS3, HEMDF, BMP3M #### [address] [place], [place] Glucose,Bedsideon 11-10-2020 Glucose [Mass/Vol] 114 mg/dL High 70-100 [facility] Comment on above: Result Comment: Test performed by glucose meter. Results may be 10%-15% lower than serum/plasma values. (CLIA ID [id number]) Performed By: #### M G3, PHOS3, HEMDF, BMP3M #### [address] [place], [place] Hemogram w/ Autodiffon 11-10 Abs Baso Cnt 0.0 10*3/uL Normal 0.0-0.2 [facility] Comment on above: Performed By: #### M G3, PHOS3, HEMDF, BMP3M #### [address] [place] [address] Abs Neutrophile Cnt 5.4 10*3/uL Normal 1.8-7.0 [facility] Comment on above: Performed By: #### M G3, PHOS3, HEMDF, BMP3M #### [address] [place] Basophils/100 WBC (Bld) 0.7 % Normal 0.0-2.0 [facility] Comment on above: Performed By: #### M G3, PHOS3, HEMDF, BMP3M #### [address] [place] Eosinophils (Bld) [#/Vol] 0.1 10*3/uL Normal 0.0-0.5 [facility] Comment on above: Performed By: #### M G3, PHOS3, HEMDF, BMP3M #### [address] [place] Eosinophils/100 WBC (Bld) 2.0 % Normal 1.0-6.0 [facility] Comment on above: Performed By: #### M G3, PHOS3, HEMDF, BMP3M #### [address] [address] [place] Erythrocyte distribution width (RBC) [Ratio] 14.5 % Normal 11.5-14.5 [facility] Comment on above: Performed By: #### M G3, PHOS3, HEMDF, BMP3M #### [address] [place] [address] Granulocytes/100 WBC (Bld) 77.2 % Normal 40.0-80.0 [facility] Comment on above: Performed By: #### M G3, PHOS3, HEMDF, BMP3M #### [address] [address] [place] Hematocrit (Bld) [Volume fraction] 40.4 % Normal 35.0-47.0 [facility] Comment on above: Performed By: #### M G3, PHOS3, HEMDF, BMP3M #### [facility] [address] [place], [place] Hemoglobin (Bld) [Mass/Vol] 13.6 g/dL Normal 11.7-16.0 [facility] Comment on above: Performed By: #### M G3, PHOS3, HEMDF, BMP3M #### [address] [place] Lymphocytes (Bld) [#/Vol] 1.0 10*3/uL Normal 1.0-4.3 [facility] Comment on above: Performed By: #### M G3, PHOS3, HEMDF, BMP3M #### [address] [place] Lymphocytes/100 WBC (Bld) 13.9 % Low 20.0-40.0 [facility] Comment on above: Performed By: #### M G3, PHOS3, HEMDF, BMP3M #### [address] [place] MCH (RBC) [Entitic mass] 34.2 pg High 26.0-34.0 [facility] Comment on above: Performed By: #### M G3, PHOS3, HEMDF, BMP3M #### [address] [place] MCHC 33.8 % Normal 32.0-36.0 [facility] Comment on above: Performed By: #### M G3, PHOS3, HEMDF, BMP3M #### [address] [place] MCV (RBC) [Entitic vol] 101.2 fL High 79.0-98.0 [facility] Comment on above: Performed By: #### M G3, PHOS3, HEMDF, BMP3M #### [address] [place] Monocytes (Bld) [#/Vol] 0.4 10*3/uL Normal 0.0-0.8 [facility] Comment on above: Performed By: #### M G3, PHOS3, HEMDF, BMP3M #### [facility] [address] [place], [place] Monocytes/100 WBC (Bld) 6.2 % Normal 2.0-10.0 [facility] Comment on above: Performed By: #### M G3, PHOS3, HEMDF, BMP3M #### [address] [place] Platelet mean volume (Bld) [Entitic vol] 7.6 fL Normal 7.4-10.4 [facility] Comment on above: Performed By: #### M G3, PHOS3, HEMDF, BMP3M #### [address] [place] Platelets (Bld) [#/Vol] 155 10*3/uL Normal 140-440 [facility] Comment on above: Performed By: #### M G3, PHOS3, HEMDF, BMP3M #### [address] [place] RBC (Bld) [#/Vol] 3.99 10*6/uL Normal 3.80-5.20 [facility] Comment on above: Performed By: #### M G3, PHOS3, HEMDF, BMP3M #### [address] [place] WBC (Bld) [#/Vol] 7.0 10*3/uL Normal 3.6-10.7 [facility] Comment on above: Performed By: #### M G3, PHOS3, HEMDF, BMP3M #### [address] [place], [place] Basic Metabolic Panelon 2 Calcium [Mass/Vol] 7.8 mg/dL Low 8.4-10.4 [facility] Comment on above: Performed By: #### M G3, PHOS3, HEMDF, BMP3M #### [address] [place], [place] Anion Gap 6 Normal [facility] Comment on above: Performed By: #### M G3, PHOS3, HEMDF, BMP3M #### [facility] [address] [place], [place] CO2 [Moles/Vol] 22 mmol/L Normal 22-30 [facility] Comment on above: Performed By: #### M G3, PHOS3, HEMDF, BMP3M #### [facility] [address] [place], [place] Glucose [Mass/Vol] 84 mg/dL Normal 70-100 [facility] Comment on above: Performed By: #### M G3, PHOS3, HEMDF, BMP3M #### [facility] [facility] [address] [place], [place] Urea nitrogen [Mass/Vol] 16 mg/dL Normal 7-20 [facility] Comment on above: Performed By: #### M G3, PHOS3, HEMDF, BMP3M #### [facility] [address], [place] Creatinine [Mass/Vol] 0.38 mg/dL Low 0.52-1.25 [facility] Comment on above: Performed By: #### M G3, PHOS3, HEMDF, BMP3M #### [facility] [address] [place], [place] eGFR OTHER > 90.0 Normal >60 [facility] Comment on above: Result Comment: KDIG [...] #### M G3, PHOS3, HEMDF, BMP3M #### [facility] [address] [place], [place] GFR/1.73 sq M.predicted among blacks MDRD (S/P/Bld) [Vol rate/Area] mL/min/{1.73_m2} Normal >60 [facility] Comment on above: Performed By: #### M G3, PHOS3, HEMDF, BMP3M #### [facility] [address] [place], [place] Chloride [Moles/Vol] 109 mmol/L High 98-107 [facility] Comment on above: Performed By: #### M G3, PHOS3, HEMDF, BMP3M #### [place] [address] [place], [place] Potassium [Moles/Vol] 3.9 mmol/L Normal 3.5-5.1 [facility] Comment on above: Result Comment: Slig htly hemolysed, interpret with caution. Performed By: #### M G3, PHOS3, HEMDF, BMP3M #### [place] [address] [place], [place] Sodium [Moles/Vol] 137 mmol/L Normal 135-145 [facility] Comment on above: Performed By: #### M G3, PHOS3, HEMDF, BMP3M #### [place] [address] [place], [place] CT Head or Brain w/o Contras ton 11-09-2020 CT Head or Brain w/o Contrast Patient Name: JAZMIN JOHNSON Computed Tomography ACCESSION EXAM DATE/TIME PROCEDURE ORDERING PROVIDER [id number] 11/09/2020 10:[address] Head or Brain w/o CHRISTIANO EMMANUEL Contrast CPT code 82457 Reason For Exam (CT Head or Brain [...] Transcribed Date and Time: 11/09/2020 10:47 Normal [facility] Hemogram w/ Autodiffon 11-09 Abs Baso Cnt 0.0 10*3/uL Normal 0.0-0.2 [facility] Comment on above: Performed By: #### M G3, PHOS3, HEMDF, BMP3M #### [address] Abs Neutrophile Cnt 3.4 10*3/uL Normal 1.8-7.0 [facility] Comment on above: Performed By: #### M G3, PHOS3, HEMDF, BMP3M #### [address] Basophils/100 WBC (Bld) 0.5 % Normal 0.0-2.0 [facility] Comment on above: Performed By: #### M G3, PHOS3, HEMDF, BMP3M #### [address] Eosinophils (Bld) [#/Vol] 0.1 10*3/uL Normal 0.0-0.5 [facility] Comment on above: Performed By: #### M G3, PHOS3, HEMDF, BMP3M #### [address] Eosinophils/100 WBC (Bld) 1.0 % Normal 1.0-6.0 [facility] Comment on above: Performed By: #### M G3, PHOS3, HEMDF, BMP3M #### [place] [address] [place], [place] Erythrocyte distribution width (RBC) [Ratio] 14.7 % High 11.5-14.5 [facility] Comment on above: Performed By: #### M G3, PHOS3, HEMDF, BMP3M #### [place] [address] [place], [place] Granulocytes/100 WBC (Bld) 62.3 % Normal 40.0-80.0 [facility] Comment on above: Performed By: #### M G3, PHOS3, HEMDF, BMP3M #### [place] [address] [place], [place] Hematocrit (Bld) [Volume fraction] 33.8 % Low 35.0-47.0 [facility] Comment on above: Performed By: #### M G3, PHOS3, HEMDF, BMP3M #### [place] [address] [place], [place] Hemoglobin (Bld) [Mass/Vol] 11.5 g/dL Low 11.7-16.0 [facility] Comment on above: Performed By: #### M G3, PHOS3, HEMDF, BMP3M #### [place] [address] [place], [place] Lymphocytes (Bld) [#/Vol] 1.3 10*3/uL Normal 1.0-4.3 [facility] Comment on above: Performed By: #### M G3, PHOS3, HEMDF, BMP3M #### [place] [address] [place], [place] Lymphocytes/100 WBC (Bld) 24.9 % Normal 20.0-40.0 [facility] Comment on above: Performed By: #### M G3, PHOS3, HEMDF, BMP3M #### [place] [address] [place] MCH (RBC) [Entitic mass] 33.9 pg Normal 26.0-34.0 [facility] Comment on above: Performed By: #### M G3, PHOS3, HEMDF, BMP3M #### [facility] [address] [place], [place] MCHC 34.1 % Normal 32.0-36.0 [facility] Comment on above: Performed By: #### M G3, PHOS3, HEMDF, BMP3M #### [facility] [address] [place], [place] MCV (RBC) [Entitic vol] 99.3 fL High 79.0-98.0 [facility] Comment on above: Performed By: #### M G3, PHOS3, HEMDF, BMP3M #### [place] [address] [place], [place] Monocytes (Bld) [#/Vol] 0.6 10*3/uL Normal 0.0-0.8 [facility] Comment on above: Performed By: #### M G3, PHOS3, HEMDF, BMP3M #### [place] [address] [place], [place] Monocytes/100 WBC (Bld) 11.3 % High 2.0-10.0 [facility] Comment on above: Performed By: #### M G3, PHOS3, HEMDF, BMP3M #### [place] [address] [place], [place] Platelet mean volume (Bld) [Entitic vol] 7.9 fL Normal 7.4-10.4 [facility] Comment on above: Performed By: #### M G3, PHOS3, HEMDF, BMP3M #### [place] [address] [place], [place] Platelets (Bld) [#/Vol] 175 10*3/uL Normal 140-440 [facility] Comment on above: Performed By: #### M G3, PHOS3, HEMDF, BMP3M #### [place] [address] [place], [place] RBC (Bld) [#/Vol] 3.40 10*6/uL Low 3.80-5.20 [facility] Comment on above: Performed By: #### M G3, PHOS3, HEMDF, BMP3M #### [place] [address] [place], [place] WBC (Bld) [#/Vol] 5.4 10*3/uL Normal 3.6-10.7 [facility] Comment on above: Performed By: #### M G3, PHOS3, HEMDF, BMP3M #### [place] [address] [place], [place] Magnesiumon 11-09-2020 Magnesium [Mass/Vol] 1.5 mg/dL Low 1.6-2.3 [facility] Comment on above: Result Comment: Slig htly hemolysed, interpret with caution. Performed By: #### M G3, PHOS3, HEMDF, BMP3M #### [place] [address] [place], [place] Phosphoruson 11-09-2020 Phosphate [Mass/Vol] 1.6 mg/dL Low 2.5-4.5 [facility] Comment on above: Result Comment: Slig htly hemolysed, interpret with caution. Performed By: #### M G3, PHOS3, HEMDF, BMP3M #### [place] [address] [place], [place] Basic Metabolic Panelon 10-15 Calcium [Mass/Vol] 8.4 mg/dL Normal 8.4-10.4 [facility] Comment on above: Performed By: #### M G3, PHOS3, HEMDF, BMP3M #### [place] [address] [place], [place] Glucose [Mass/Vol] 53 mg/dL Low 70-100 [facility] Comment on above: Performed By: #### M G3, PHOS3, HEMDF, BMP3M #### [place] [address] [place], [place] Urea nitrogen [Mass/Vol] 21 mg/dL High 7-20 [facility] Comment on above: Performed By: #### M G3, PHOS3, HEMDF, BMP3M #### [facility] [address] [place], [place] Anion Gap 16 Normal [facility] Comment on above: Performed By: #### M G3, PHOS3, HEMDF, BMP3M #### [facility] [address], [place] CO2 [Moles/Vol] 19 mmol/L Low 22-30 [facility] Comment on above: Performed By: #### M G3, PHOS3, HEMDF, BMP3M #### [place] [address] [place], [place] Creatinine [Mass/Vol] 0.53 mg/dL Normal 0.52-1.25 [facility] Comment on above: Performed By: #### M G3, PHOS3, HEMDF, BMP3M #### [address] eGFR OTHER > 90.0 Normal >60 [facility] Comment on above: Result Comment: KDIG [...] #### M G3, PHOS3, HEMDF, BMP3M #### [facility] [address], [place] GFR/1.73 sq M.predicted among blacks MDRD (S/P/Bld) [Vol rate/Area] mL/min/{1.73_m2} Normal >60 [facility] Comment on above: Performed By: #### M G3, PHOS3, HEMDF, BMP3M #### [facility] [address] [place], [place] Chloride [Moles/Vol] 106 mmol/L Normal 98-107 [facility] Comment on above: Performed By: #### M G3, PHOS3, HEMDF, BMP3M #### [facility] [address] [place], [place] Potassium [Moles/Vol] 4.3 mmol/L Normal 3.5-5.1 [facility] Comment on above: Result Comment: Slig htly hemolysed, interpret with caution. Performed By: #### M G3, PHOS3, HEMDF, BMP3M #### [facility] [address] [place], [place] Sodium [Moles/Vol] 141 mmol/L Normal 135-145 [facility] Comment on above: Performed By: #### M G3, PHOS3, HEMDF, BMP3M #### [facility] [address] [place], [place] COVID and Resp PCR Panelon 0 11-08-2020 SARS-CoV-2 (COVID-19) RNA CY+probe Ql (Unsp spec) COVID and Resp PCR Panel --> Status: F POSITIVE: SARS-CoV-2 DETECTED. _ Expected Result: Not Detected The [employer] Upper Respiratory Pathogens PCR Panel can detect [...] management decisions. This assay was developed by [employer] and distributed under an Emergency Use Authorization (EUA) granted by the FDA for the qualitative detection of SARS-CoV-2 nucleic acid. Provider and patient fact sheets can be found at https://www[facility].gov/sd caio/988040/download and https://www.[facility].gov/sd caio/299713/download. _ Expected Result: Not Detected [employer] Upper Respiratory Pathogens PCR Panel can detect [...] management decisions. This assay was developed by [employer] and distributed under an Emergency Use Authorization (EUA) granted by the FDA for the qualitative detection of SARS-CoV-2 nucleic acid. Provider and patient fact sheets can be found at https://www.[facility].gov/sd caio/450802/download and https://www.[facility].gov/sd caio/813419/download. Abnormal [facility] Comment on above: Performed By: #### M G3, PHOS3, HEMDF, BMP3M #### [facility] [address] [place] [id number] CR Chest Portableon 11-08-19 21 CR Chest Portable Patient Name: JAZMIN JOHNSON Diagnostic Radiology ACCESSION EXAM DATE/TIME PROCEDURE ORDERING PROVIDER [id number] 11/08/2020 09:22 EST CR Chest Portable [id number] -GALDINO ROSENBERG CPT code 71325 Reason For Exam (CR Chest Portable) covid [...] Dictated: 11/08/2020 8:32 am Dictating Physician: MD SOCRATES, AP Fuentes Signed Date and Time: 11/08/2020 8:32 am Signed by: MD CROWELL ANTHONY J Transcribed Date and Time: 11/08/2020 8:32 Normal [facility] CT Head or Brain w/o Contras ton 11-08-2020 CT Head or Brain w/o Contrast Patient Name: JAZMIN JOHNSON Computed Tomography ACCESSION EXAM DATE/TIME PROCEDURE ORDERING PROVIDER [id number] 11/08/2020 14:[address] Head or Brain w/o MD SIDNEY, ANGELICA Contrast CPT code 39199 Reason For Exam (CT Head or Brain [...] Transcribed Date and Time: 11/08/2020 3:15 Normal [facility] Ethanol Serum/Plasmaon 11-08 Ethanol-Serum/Plasma 0.210 g/dL High 0.000-0.010 [facility] Comment on above: Result Comment: NOTE : This result is for medical treatment only. Analysis performed using non-forensic procedures. Performed By: #### E TOH4 #### [address] Glucose,Bedsideon 11-08-2020 Glucose [Mass/Vol] 139 mg/dL High 70-100 [facility] Comment on above: Result Comment: Test performed by glucose meter. Results may be 10%-15% lower than serum/plasma values. (CLIA ID [id number]) Performed By: #### M G3, PHOS3, HEMDF, BMP3M #### [facility] [address] [place] [address] Glucose [Mass/Vol] 57 mg/dL Low 70-100 [facility] Comment on above: Result Comment: Test performed by glucose meter. Results may be 10%-15% lower than serum/plasma values. (CLIA ID [id number]) Performed By: #### M G3, PHOS3, HEMDF, BMP3M #### [facility] [address] [place] [address] Hepatic Functionon ALP [Catalytic activity/Vol] 86 U/L Normal 38-126 [facility] Comment on above: Result Comment: Slig htly hemolysed, interpret with caution. Performed By: #### E TOH4 #### [place] [address] [place], [place] ALT [Catalytic activity/Vol] 22 U/L Normal 0-34 [facility] Comment on above: Result Comment: The ALT test is performed by an updated assay method. Please note that the reference intervals have been changed and are now sex specific. Performed By: #### E TOH4 #### [place] [place], [place] AST [Catalytic activity/Vol] 49 U/L High 15-46 [facility] Comment on above: Result Comment: Slig htly hemolysed, interpret with caution. Performed By: #### E TOH4 #### [place] [place], [place] Bilirubin [Mass/Vol] 0.7 mg/dL Normal 0.2-1.3 [facility] Comment on above: Performed By: #### E TOH4 #### [place] [place], [place] Bilirubin.indirect [Mass/Vol] 0.0 mg/dL Normal 0.0-0.3 [facility] Comment on above: Performed By: #### E TOH4 #### [place] [place] Protein [Mass/Vol] 7.1 g/dL Normal 6.3-8.2 [facility] Comment on above: Result Comment: Slig htly hemolysed, interpret with caution. Performed By: #### E TOH4 #### [address] [place], [place] Albumin [Mass/Vol] 3.9 g/dL Normal 3.5-5.0 [facility] Comment on above: Result Comment: Slig htly hemolysed, interpret with caution. Performed By: #### E TOH4 #### [address] [place], [place] Protime AND APTTon 1 aPTT Coag (Bld) [Time] 23.1 s Normal 20.0-30.5 [facility] Comment on above: Result Comment: NOTE : The therapeutic time for Heparin anticoagulation, based on Xa activity inhibition, is an APTT of 46-80 seconds. Performed By: #### E TOH4 #### [address] [place] [address] INR 0.9 Normal 0.9-1.1 [facility] Comment on above: Result Comment: Daniel [...] Infarction Performed By: #### E TOH4 #### [address] [place] [address] PT Coag (PPP) [Time] 10.2 s Normal 9.0-12.0 [facility] Comment on above: Result Comment: . Performed By: #### E TOH4 #### [address] [place] [address] Add on test from HISon 11-07 Add on test from HIS Accepted Normal [facility] Comment on above: Result Comment: Spec imen available & acceptable for analysis. Performed By: #### K 3, MG3 #### [facility] [address] [place] [address] CT Head or Brain w/o Contras ton 11-07-2020 CT Head or Brain w/o Contrast Patient Name: JAZMIN JOHNSON Computed Tomography ACCESSION EXAM DATE/TIME PROCEDURE ORDERING PROVIDER [id number] 11/07/2020 19:[address] Head or Brain w/o MD FAINA, OSCAR De La Rosa Contrast CPT code 69201 Reason For Exam (CT Head or Brain [...] Transcribed Date and Time: 11/07/2020 7:29 Normal [facility] Comp Metabolic Panelon 11-07 ALT [Catalytic activity/Vol] 23 U/L Normal 0-34 [facility] Comment on above: Result Comment: The ALT test is performed by an updated assay method. Please note that the reference intervals have been changed and are now sex specific. Performed By: #### B MP3, CK3, TROPN, LFT3, HEMDF, NH33, ETOH4 #### [facility] [address] [place] [address] Calcium [Mass/Vol] 9.5 mg/dL Normal 8.4-10.4 [facility] Comment on above: Performed By: #### B MP3, CK3, TROPN, LFT3, HEMDF, NH33, ETOH4 #### [facility] [address] [place] [address] Glucose [Mass/Vol] 71 mg/dL Normal 70-100 [facility] Comment on above: Performed By: #### B MP3, CK3, TROPN, LFT3, HEMDF, NH33, ETOH4 #### [facility] [address] [place] [address] Urea nitrogen [Mass/Vol] 22 mg/dL High 7-20 [facility] Comment on above: Performed By: #### B MP3, CK3, TROPN, LFT3, HEMDF, NH33, ETOH4 #### [facility] [address] [place] [address] ALP [Catalytic activity/Vol] 128 U/L High 38-126 [facility] Comment on above: Performed By: #### B MP3, CK3, TROPN, LFT3, HEMDF, NH33, ETOH4 #### [facility] [address] [place] [address] Anion Gap 15 Normal [facility] Comment on above: Performed By: #### B MP3, CK3, TROPN, LFT3, HEMDF, NH33, ETOH4 #### [facility] [address] [place] [address] AST [Catalytic activity/Vol] 45 U/L Normal 15-46 [facility] Comment on above: Performed By: #### B MP3, CK3, TROPN, LFT3, HEMDF, NH33, ETOH4 #### [facility] [address] [place] [address] Bilirubin [Mass/Vol] 0.4 mg/dL Normal 0.2-1.3 [facility] Comment on above: Performed By: #### B MP3, CK3, TROPN, LFT3, HEMDF, NH33, ETOH4 #### [facility] [address] [place] [address] CO2 [Moles/Vol] 18 mmol/L Low 22-30 [facility] Comment on above: Performed By: #### B MP3, CK3, TROPN, LFT3, HEMDF, NH33, ETOH4 #### [facility] [address] [place] [address] Creatinine [Mass/Vol] 0.67 mg/dL Normal 0.52-1.25 [facility] Comment on above: Performed By: #### B MP3, CK3, TROPN, LFT3, HEMDF, NH33, ETOH4 #### [facility] [address] [place] [address] GFR/1.73 sq M.predicted among blacks MDRD (S/P/Bld) [Vol rate/Area] mL/min/{1.73_m2} Normal >60 [facility] Comment on above: Performed By: #### B MP3, CK3, TROPN, LFT3, HEMDF, NH33, ETOH4 #### [facility] [address] [place] [address] GFR/1.73 sq M.predicted among non-blacks MDRD (S/P/Bld) [Vol rate/Area] 89.4 mL/min/{1.73_m2} Normal >60 [facility] Comment on above: Result Comment: KDIG O [...] CK3, TROPN, LFT3, HEMDF, NH33, ETOH4 #### [facility] [address] [place] [address] Protein [Mass/Vol] 7.9 g/dL Normal 6.3-8.2 [facility] Comment on above: Performed By: #### B MP3, CK3, TROPN, LFT3, HEMDF, NH33, ETOH4 #### [facility] [address] [place] [address] Chloride [Moles/Vol] 112 mmol/L High 98-107 [facility] Comment on above: Performed By: #### B MP3, CK3, TROPN, LFT3, HEMDF, NH33, ETOH4 #### [facility] [address] [place] [address] Potassium [Moles/Vol] 3.8 mmol/L Normal 3.5-5.1 [facility] Comment on above: Performed By: #### B MP3, CK3, TROPN, LFT3, HEMDF, NH33, ETOH4 #### [facility] [address] [place] [address] Sodium [Moles/Vol] 145 mmol/L Normal 135-145 [facility] Comment on above: Performed By: #### B MP3, CK3, TROPN, LFT3, HEMDF, NH33, ETOH4 #### [facility] [address] [place] [address] Albumin [Mass/Vol] 4.5 g/dL Normal 3.5-5.0 [facility] Comment on above: Performed By: #### B MP3, CK3, TROPN, LFT3, HEMDF, NH33, ETOH4 #### [facility] [address] [place] [address] Ethanol Serum/Plasmaon 11-07 Ethanol-Serum/Plasma 0.348 g/dL Critically high 0.000-0.01 0 [facility] Comment on above: Result Comment: NOTE : This result is for medical treatment only. Analysis performed using non-forensic procedures. Performed By: #### B MP3, CK3, TROPN, LFT3, HEMDF, NH33, ETOH4 #### [facility] [address] [place] [address] Hemogram w/ Autodiffon 11-07 Abs Baso Cnt 0.1 10*3/uL Normal 0.0-0.2 [facility] Comment on above: Performed By: #### B MP3, CK3, TROPN, LFT3, HEMDF, NH33, ETOH4 #### [facility] [address] [place] [address] Abs Neutrophile Cnt 7.5 10*3/uL High 1.8-7.0 [facility] Comment on above: Performed By: #### B MP3, CK3, TROPN, LFT3, HEMDF, NH33, ETOH4 #### [facility] [address] [place] [address] Basophils/100 WBC (Bld) 1.1 % Normal 0.0-2.0 [facility] Comment on above: Performed By: #### B MP3, CK3, TROPN, LFT3, HEMDF, NH33, ETOH4 #### [facility] [address] [place] [address] Eosinophils (Bld) [#/Vol] 0.1 10*3/uL Normal 0.0-0.5 [facility] Comment on above: Performed By: #### B MP3, CK3, TROPN, LFT3, HEMDF, NH33, ETOH4 #### [facility] [address] [place] [address] Eosinophils/100 WBC (Bld) 0.5 % Low 1.0-6.0 [facility] Comment on above: Performed By: #### B MP3, CK3, TROPN, LFT3, HEMDF, NH33, ETOH4 #### [facility] [address] [place] [address] Erythrocyte distribution width (RBC) [Ratio] 15.4 % High 11.5-14.5 [facility] Comment on above: Performed By: #### B MP3, CK3, TROPN, LFT3, HEMDF, NH33, ETOH4 #### [facility] [address] [place] [address] Granulocytes/100 WBC (Bld) 72.5 % Normal 40.0-80.0 [facility] Comment on above: Performed By: #### B MP3, CK3, TROPN, LFT3, HEMDF, NH33, ETOH4 #### [facility] [address] [place] [address] Hematocrit (Bld) [Volume fraction] 48.5 % High 35.0-47.0 [facility] Comment on above: Performed By: #### B MP3, CK3, TROPN, LFT3, HEMDF, NH33, ETOH4 #### [facility] [address] [place] [address] Hemoglobin (Bld) [Mass/Vol] 16.1 g/dL High 11.7-16.0 [facility] Comment on above: Performed By: #### B MP3, CK3, TROPN, LFT3, HEMDF, NH33, ETOH4 #### [facility] [address] [place] [address] Lymphocytes (Bld) [#/Vol] 2.4 10*3/uL Normal 1.0-4.3 [facility] Comment on above: Performed By: #### B MP3, CK3, TROPN, LFT3, HEMDF, NH33, ETOH4 #### [facility] [address] [place] [address] Lymphocytes/100 WBC (Bld) 22.6 % Normal 20.0-40.0 [facility] Comment on above: Performed By: #### B MP3, CK3, TROPN, LFT3, HEMDF, NH33, ETOH4 #### [facility] [address] [place] [address] MCH (RBC) [Entitic mass] 33.5 pg Normal 26.0-34.0 [facility] Comment on above: Performed By: #### B MP3, CK3, TROPN, LFT3, HEMDF, NH33, ETOH4 #### [facility] [address] [place] [address] MCHC 33.2 % Normal 32.0-36.0 [facility] Comment on above: Performed By: #### B MP3, CK3, TROPN, LFT3, HEMDF, NH33, ETOH4 #### [facility] [address] [place] [address] MCV (RBC) [Entitic vol] 100.9 fL High 79.0-98.0 [facility] Comment on above: Performed By: #### B MP3, CK3, TROPN, LFT3, HEMDF, NH33, ETOH4 #### [facility] [address] [place] [address] Monocytes (Bld) [#/Vol] 0.3 10*3/uL Normal 0.0-0.8 [facility] Comment on above: Performed By: #### B MP3, CK3, TROPN, LFT3, HEMDF, NH33, ETOH4 #### [facility] [address] [place] [address] Monocytes/100 WBC (Bld) 3.3 % Normal 2.0-10.0 [facility] Comment on above: Performed By: #### B MP3, CK3, TROPN, LFT3, HEMDF, NH33, ETOH4 #### [facility] [address] [place] [address] Platelet mean volume (Bld) [Entitic vol] 7.8 fL Normal 7.4-10.4 [facility] Comment on above: Performed By: #### B MP3, CK3, TROPN, LFT3, HEMDF, NH33, ETOH4 #### [facility] [address] [place] [address] Platelets (Bld) [#/Vol] 350 10*3/uL Normal 140-440 [facility] Comment on above: Performed By: #### B MP3, CK3, TROPN, LFT3, HEMDF, NH33, ETOH4 #### [facility] [address] [place] [address] RBC (Bld) [#/Vol] 4.81 10*6/uL Normal 3.80-5.20 [facility] Comment on above: Performed By: #### B MP3, CK3, TROPN, LFT3, HEMDF, NH33, ETOH4 #### [facility] [facility] [address] [place] [address] WBC (Bld) [#/Vol] 10.4 10*3/uL Normal 3.6-10.7 [facility] Comment on above: Performed By: #### B MP3, CK3, TROPN, LFT3, HEMDF, NH33, ETOH4 #### [facility] [address] [place] [address] Magnesiumon 11-07-2020 Magnesium [Mass/Vol] 1.7 mg/dL Normal 1.6-2.3 [facility] Comment on above: Performed By: #### B MP3, CK3, TROPN, LFT3, HEMDF, NH33, ETOH4 #### [facility] [address] [place] [address] Basic Metabolic Panelon 10-14 Calcium [Mass/Vol] 9.6 mg/dL Normal 8.4-10.4 [facility] Comment on above: Performed By: #### B MP3 #### [facility] [address] [place], [place] Anion Gap 6 Normal [facility] Comment on above: Performed By: #### B MP3 #### [facility] [address] [place], [place] CO2 [Moles/Vol] 23 mmol/L Normal 22-30 [facility] Comment on above: Performed By: #### B MP3 #### [facility] [address] [place], [place] Creatinine [Mass/Vol] 0.45 mg/dL Low 0.52-1.25 [facility] Comment on above: Performed By: #### B MP3 #### [facility] [address] [place], [place] eGFR OTHER > 90.0 Normal >60 [facility] Comment on above: Result Comment: KDIG [...] secretion. Performed By: #### B MP3 #### [facility] [address] [place] [address] GFR/1.73 sq M.predicted among blacks MDRD (S/P/Bld) [Vol rate/Area] mL/min/{1.73_m2} Normal >60 [facility] Comment on above: Performed By: #### B MP3 #### [facility] [address] [place] [address] Glucose [Mass/Vol] 91 mg/dL Normal 70-100 [facility] Comment on above: Performed By: #### B MP3 #### [address] [place], [place] Urea nitrogen [Mass/Vol] 16 mg/dL Normal 7-20 [facility] Comment on above: Performed By: #### B MP3 #### [address] [place], [place] Chloride [Moles/Vol] 104 mmol/L Normal 98-107 [facility] Comment on above: Performed By: #### B MP3 #### [facility] [address] [place], [place] Potassium [Moles/Vol] 4.5 mmol/L Normal 3.5-5.1 [facility] Comment on above: Performed By: #### B MP3 #### [address] [place], [place] Sodium [Moles/Vol] 134 mmol/L Low 135-145 [facility] Comment on above: Performed By: #### B MP3 #### [address] [place], [place] Anion gap [Moles/Vol] 6 mmol/L [facility], [place] Calcium [Mass/Vol] 9.6 mg/dL 8.4 - 10. 4 mg/dL [facility], [place] Chloride [Moles/Vol] 104 mmol/L 98 - 107 mmol/L [facility] CO2 [Moles/Vol] 23 mmol/L 22 - 30 mmol/L [facility] Creatinine [Mass/Vol] 0.45 mg/dL Low 0.52 - 1.25 mg/dL [place], [place] EGFR IF NonAfrican [place] >90.0 >60 mL/min [place] Comment on above: KDIGO guidelines pro [...] MDRD (S/P/Bld) [Vol rate/Area] mL/min/{1.73_m2} >60 mL/min [place] Glucose [Mass/Vol] 91 mg/dL 70 - 100 mg/dL [place], [place] Interpretation and review of laboratory results Abnormal [place] Potassium [Moles/Vol] 4.5 mmol/L 3.5 - 5.1 mmol/L [place] Sodium [Moles/Vol] 134 mmol/L Low 135 - 145 mmol/L [place] Urea nitrogen [Mass/Vol] 16 mg/dL 7 - 20 mg/dL [place] Test Performed by [facility], [address] [place] [id number] [place] [address] Basic Metabolic Panelon 10-14 Anion Gap 8 Normal [facility] Comment on above: Performed By: #### E TOH4 #### [address] [address] Calcium [Mass/Vol] 9.3 mg/dL Normal 8.4-10.4 [facility] Comment on above: Performed By: #### E TOH4 #### [address] CO2 [Moles/Vol] 24 mmol/L Normal 22-30 [facility] Comment on above: Performed By: #### E TOH4 #### [facility] [address] [place], [place] Creatinine [Mass/Vol] 0.51 mg/dL Low 0.52-1.25 [facility] Comment on above: Performed By: #### E TOH4 #### [address] [place], [place] eGFR OTHER > 90.0 Normal >60 [facility] Comment on above: Result Comment: KDIG [...] secretion. Performed By: #### E TOH4 #### [address] [place], [place] GFR/1.73 sq M.predicted among blacks MDRD (S/P/Bld) [Vol rate/Area] mL/min/{1.73_m2} Normal >60 [facility] Comment on above: Performed By: #### E TOH4 #### [address] [place], [place] Glucose [Mass/Vol] 97 mg/dL Normal 70-100 [facility] Comment on above: Performed By: #### E TOH4 #### [address] [place], [place] Urea nitrogen [Mass/Vol] 13 mg/dL Normal 7-20 [facility] Comment on above: Performed By: #### E TOH4 #### [facility] [address] [place], [place] Chloride [Moles/Vol] 102 mmol/L Normal 98-107 [facility] Comment on above: Performed By: #### E TOH4 #### [facility] [address] [place], [place] Potassium [Moles/Vol] 4.5 mmol/L Normal 3.5-5.1 [facility] Comment on above: Performed By: #### E TOH4 #### [facility] [address] [place], [place] Sodium [Moles/Vol] 133 mmol/L Low 135-145 [facility] Comment on above: Performed By: #### E TOH4 #### [facility] [address] [place], [place] Anion gap [Moles/Vol] 8 mmol/L [place], [place] Calcium [Mass/Vol] 9.3 mg/dL 8.4 - 10. 4 mg/dL [place] Chloride [Moles/Vol] 102 mmol/L 98 - 107 mmol/L [place] CO2 [Moles/Vol] 24 mmol/L 22 - 30 mmol/L [place] Creatinine [Mass/Vol] 0.51 mg/dL Low 0.52 - 1.25 mg/dL [place] EGFR IF NonAfrican [place] >90.0 >60 mL/min [place] Comment on above: KDIGO guidelines pro [...] MDRD (S/P/Bld) [Vol rate/Area] mL/min/{1.73_m2} >60 mL/min [place] Glucose [Mass/Vol] 97 mg/dL 70 - 100 mg/dL [place] Interpretation and review of laboratory results Abnormal [place] Potassium [Moles/Vol] 4.5 mmol/L 3.5 - 5.1 mmol/L [place] Sodium [Moles/Vol] 133 mmol/L Low 135 - 145 mmol/L [place] Urea nitrogen [Mass/Vol] 13 mg/dL 7 - 20 mg/dL [place] Test Performed by [id number] [place] [address] Basic Metabolic Panelon 01-0 Calcium [Mass/Vol] 10.3 mg/dL Normal 8.4-10.4 [facility] Comment on above: Performed By: #### M G3, PHOS3, HEMDF, BMP3M #### [address] Anion Gap 9 Normal [facility] Comment on above: Performed By: #### M G3, PHOS3, HEMDF, BMP3M #### [address] CO2 [Moles/Vol] 26 mmol/L Normal 22-30 [facility] Comment on above: Performed By: #### M G3, PHOS3, HEMDF, BMP3M #### [address] Creatinine [Mass/Vol] 0.36 mg/dL Low 0.52-1.25 [facility] Comment on above: Performed By: #### M G3, PHOS3, HEMDF, BMP3M #### [address] eGFR OTHER > 90.0 Normal >60 [facility] Comment on above: Result Comment: KDIG [...] #### M G3, PHOS3, HEMDF, BMP3M #### [address] GFR/1.73 sq M.predicted among blacks MDRD (S/P/Bld) [Vol rate/Area] mL/min/{1.73_m2} Normal >60 [facility] Comment on above: Performed By: #### M G3, PHOS3, HEMDF, BMP3M #### [address] Glucose [Mass/Vol] 126 mg/dL High 70-100 [facility] Comment on above: Performed By: #### M G3, PHOS3, HEMDF, BMP3M #### [address] Urea nitrogen [Mass/Vol] 12 mg/dL Normal 7-20 [facility] Comment on above: Performed By: #### M G3, PHOS3, HEMDF, BMP3M #### [address] Chloride [Moles/Vol] 94 mmol/L Low 98-107 [facility] Comment on above: Performed By: #### M G3, PHOS3, HEMDF, BMP3M #### [address] [place] [address] Potassium [Moles/Vol] 3.8 mmol/L Normal 3.5-5.1 [facility] Comment on above: Performed By: #### M G3, PHOS3, HEMDF, BMP3M #### [facility] [address] [place] [address] Sodium [Moles/Vol] 129 mmol/L Low 135-145 [facility] Comment on above: Performed By: #### M G3, PHOS3, HEMDF, BMP3M #### [facility] [address] [place] [address] Anion gap [Moles/Vol] 9 mmol/L [place] Calcium [Mass/Vol] 10.3 mg/dL 8.4 - 10. 4 mg/dL [place] Chloride [Moles/Vol] 94 mmol/L Low 98 - 107 mmol/L [place] CO2 [Moles/Vol] 26 mmol/L 22 - 30 mmol/L [place] Creatinine [Mass/Vol] 0.36 mg/dL Low 0.52 - 1.25 mg/dL [place] EGFR IF NonAfrican [place] >90.0 >60 mL/min [place] Comment on above: KDIGO guidelines pro [...] MDRD (S/P/Bld) [Vol rate/Area] mL/min/{1.73_m2} >60 mL/min [place] Glucose [Mass/Vol] 126 mg/dL High 70 - 100 mg/dL [place] Interpretation and review of laboratory results Abnormal [place] Potassium [Moles/Vol] 3.8 mmol/L 3.5 - 5.1 mmol/L [place] Sodium [Moles/Vol] 129 mmol/L Low 135 - 145 mmol/L [place] Urea nitrogen [Mass/Vol] 12 mg/dL 7 - 20 mg/dL [place] Magnesiumon 10-22-2020 Magnesium [Mass/Vol] 1.6 mg/dL Normal 1.6-2.3 [facility] Comment on above: Performed By: #### M G3, PHOS3, HEMDF, BMP3M #### [address] [address] Magnesium [Mass/Vol] 1.6 mg/dL 1.6 - 2.3 mg/dL [place] Otheron 10-22-2020 Test Performed by [address] [address] [place] BASIC METABOLIC PANELon Anion gap [Moles/Vol] 5 mmol/L [place] Calcium [Mass/Vol] 8.9 mg/dL 8.4 - 10. 4 mg/dL [place] Chloride [Moles/Vol] 98 mmol/L 98 - 107 mmol/L [place] CO2 [Moles/Vol] 26 mmol/L 22 - 30 mmol/L [place] Creatinine [Mass/Vol] 0.34 mg/dL Low 0.52 - 1.25 mg/dL [place] EGFR IF NonAfrican [place] >90.0 >60 mL/min [place] Comment on above: KDIGO guidelines pro [...] MDRD (S/P/Bld) [Vol rate/Area] mL/min/{1.73_m2} >60 mL/min [place] Glucose [Mass/Vol] 105 mg/dL High 70 - 100 mg/dL [place] Potassium [Moles/Vol] 3.8 mmol/L 3.5 - 5.1 mmol/L [place] Sodium [Moles/Vol] 129 mmol/L Low 135 - 145 mmol/L [place] Urea nitrogen [Mass/Vol] 13 mg/dL 7 - 20 mg/dL [place] Basic Metabolic Panelon 01-0 Calcium [Mass/Vol] 8.9 mg/dL Normal 8.4-10.4 [facility] Comment on above: Performed By: #### B MP3 #### [facility] [address] [place], [place] Glucose [Mass/Vol] 105 mg/dL High 70-100 [facility] Comment on above: Performed By: #### B MP3 #### [facility] [address] [place], [place] Anion Gap 5 Normal [facility] Comment on above: Performed By: #### B MP3 #### [facility] [address] [place], [place] CO2 [Moles/Vol] 26 mmol/L Normal 22-30 [facility] Comment on above: Performed By: #### B MP3 #### [facility] [address] [place], [place] Creatinine [Mass/Vol] 0.34 mg/dL Low 0.52-1.25 [facility] Comment on above: Performed By: #### B MP3 #### [facility] [address] [place], [place] eGFR OTHER > 90.0 Normal >60 [facility] Comment on above: Result Comment: KDIG [...] secretion. Performed By: #### B MP3 #### [facility] [address] [place], [place] GFR/1.73 sq M.predicted among blacks MDRD (S/P/Bld) [Vol rate/Area] mL/min/{1.73_m2} Normal >60 [facility] Comment on above: Performed By: #### B MP3 #### [facility] [address] [place], [place] Urea nitrogen [Mass/Vol] 13 mg/dL Normal 7-20 [facility] Comment on above: Performed By: #### B MP3 #### [facility] [address] [place], [place] Chloride [Moles/Vol] 98 mmol/L Normal 98-107 [facility] Comment on above: Performed By: #### B MP3 #### [facility] [address] [place], [place] Potassium [Moles/Vol] 3.8 mmol/L Normal 3.5-5.1 [facility] Comment on above: Performed By: #### B MP3 #### [facility] [address] [place], [place] Sodium [Moles/Vol] 129 mmol/L Low 135-145 [facility] Comment on above: Performed By: #### B MP3 #### [facility] [address] [place], [place] CBC auto differentialon 01-0 Absolute Baso # 0.1 10*3/uL 0 - 0.2 10*3/uL [place] Absolute Neut # 4.4 10*3/uL 1.8 - 7 10*3/uL [place] Basophils/100 WBC (Bld) 0.9 % 0 - 2 % [place] Eosinophils (Bld) [#/Vol] 0.0 10*3/uL 0 - 0.5 10*3/uL [place] Eosinophils/100 WBC (Bld) 0.6 % Low 1 - 6 % [place] Erythrocyte distribution width (RBC) [Ratio] 14.2 % 11.5 - 14.5 % [place] Granulocytes/100 WBC (Bld) 72.3 % 40 - 80 % [place] Hematocrit (Bld) [Volume fraction] 38.1 % 35 - 47 % [place] Hemoglobin (Bld) [Mass/Vol] 12.9 g/dL 11.7 - 16 g/dL [place] Interpretation and review of laboratory results Abnormal [place] Lymphocytes (Bld) [#/Vol] 1.1 10*3/uL 1 - 4.3 10*3/uL [place] Lymphocytes/100 WBC (Bld) 17.7 % Low 20 - 40 % [place] MCH (RBC) [Entitic mass] 33.5 pg 26 - 34 pg [place] MCHC (RBC) [Mass/Vol] 33.9 % 32 - 36 % [place] MCV (RBC) [Entitic vol] 98.8 fL High 79 - 98 fL [place] Monocytes (Bld) [#/Vol] 0.5 10*3/uL 0 - 0.8 10*3/uL [place] Monocytes/100 WBC (Bld) 8.5 % 2 - 10 % [place] Platelet mean volume (Bld) [Entitic vol] 8.8 fL 7.4 - 10.4 fL [place] Platelets (Bld) [#/Vol] 147 10*3/uL 140 - 440 10*3/uL [place] RBC (Bld) [#/Vol] 3.86 10*6/uL 3.8 - 5.2 10*6/uL [place] WBC (Bld) [#/Vol] 6.1 10*3/uL 3.6 - 10.7 10*3/uL [place] Test Performed by [facility], [address] [place] [id number] [place] [address] CT HEAD WO CONTRASTon 2020 Patient Name: JAZMIN JOHNSON Computed Tomography ACCESSION EXAM DATE/TIME PROCEDURE ORDERING PROVIDER [id number] 10/21/2020 04:[address] Head or Brain w/o MD CL, JAJA Contrast CPT code 35158 Reason For Exam (CT Head or Brain [...] Diminished cerebral volume. Report Dictated on Workstation: [facility] --- Final --- Dictated: 10/21/2020 4:58 am Dictating Physician: MD GUZMAN JEFFREY Signed Date and Time: 10/21/2020 5:00 am Signed by: MD GUZMAN JEFFREY Transcribed Date and Time: 10/21/2020 4:58 [place], [place] Willi Alonzo Incoming Radiology Results From [facility] - 10/21/2020 5:01 AM EST Patient Name: JAZMIN JOHNSON Computed Tomography ACCESSION EXAM DATE/TIME PROCEDURE ORDERING PROVIDER [id number] 10/21/2020 04:[address] Head or Brain w/o MD ALBERT LORNA Contrast CPT code 87520 Reason For Exam (CT Head or Brain [...] Diminished cerebral volume. Report Dictated on Workstation: [facility] --- Final --- Dictated: 10/21/2020 4:58 am Dictating Physician: MD GUZMAN JEFFREY Signed Date and Time: 10/21/2020 5:00 am Signed by: MD GUZMAN JEFFREY Transcribed Date and Time: 10/21/2020 4:58 [facility], [place] CT Head or Brain w/o Contras ton 10-21-2020 CT Head or Brain w/o Contrast Patient Name: JAZMIN JOHNSON Computed Tomography ACCESSION EXAM DATE/TIME PROCEDURE ORDERING PROVIDER [id number] 10/21/2020 04:[address] Head or Brain w/o MD CL, JAJA Contrast CPT code 05495 Reason For Exam (CT Head or Brain [...] Diminished cerebral volume. Report Dictated on Workstation: [facility] Final Dictated: 10/21/2020 4:58 am Dictating Physician: MD GUZMAN JEFFREY Signed Date and Time: 10/21/2020 5:00 am Signed by: MD GUZMAN JEFFREY Transcribed Date and Time: 10/21/2020 4:58 Normal [facility] EKG 12 Lead - Chest Painon 0 10-21-2020 [facility] Test Date: 2020-10-19 Pat Name: Jazmin Johnson Department: 01 Room: 444 Gender: F Can Vacuum Tester: MONIKA : 1950 Requested By: ALEJANDRO AGUILAR Order Number: [id number] Reading MD: Rd Rankin Measurements Intervals [place] Rate: 112 P: 61 ME: 128 QRS: -33 QRSD: 90 T: 70 QT: 344 QTc: 470 Interpretive Statements SINUS TACHYCARDIA LEFT AXIS DEVIATION BASELINE WANDER IN LEAD(S) V1,V3,V5 No previous ECG available for comparison Electronically Signed On 10-21-2020 7:09:[address] [facility] [place], [facility], [facility] Incoming Cardiology Results From [facility] - 10/21/2020 7:10 AM EST [facility] Test Date: 2020-10-19 Pat Name: Jazmin Johnson Department: 01 Room: 444 Gender: F Can Vacuum Tester: MONIKA : 1950 Requested By: ALEJANDRO AGUILAR Order Number: [id number] Reading MD: Rd Rankin Measurements Intervals [place] Rate: 112 P: 61 ME: 128 QRS: -33 QRSD: 90 T: 70 QT: 344 QTc: 470 Interpretive Statements SINUS TACHYCARDIA LEFT AXIS DEVIATION BASELINE WANDER IN LEAD(S) V1,V3,V5 No previous ECG available for comparison Electronically Signed On 10-21-2020 7:09:51 EST [facility] [place], [place] Hemogram w/ Autodiffon 10-21 Abs Baso Cnt 0.1 10*3/uL Normal 0.0-0.2 [facility] Comment on above: Performed By: #### B MP3 #### [facility] [address] [place] [address] Abs Neutrophile Cnt 4.4 10*3/uL Normal 1.8-7.0 [facility] Comment on above: Performed By: #### B MP3 #### [facility] [address] [place] [address] Basophils/100 WBC (Bld) 0.9 % Normal 0.0-2.0 [facility] Comment on above: Performed By: #### B MP3 #### [facility] [address] [place] [address] Eosinophils (Bld) [#/Vol] 0.0 10*3/uL Normal 0.0-0.5 [facility] Comment on above: Performed By: #### B MP3 #### [facility] [address] [place] [address] Eosinophils/100 WBC (Bld) 0.6 % Low 1.0-6.0 [facility] Comment on above: Performed By: #### B MP3 #### [facility] [address] [place] [address] Erythrocyte distribution width (RBC) [Ratio] 14.2 % Normal 11.5-14.5 [facility] Comment on above: Performed By: #### B MP3 #### [facility] [address] [place], [place] Granulocytes/100 WBC (Bld) 72.3 % Normal 40.0-80.0 [facility] Comment on above: Performed By: #### B MP3 #### [facility] [address] [place] Hematocrit (Bld) [Volume fraction] 38.1 % Normal 35.0-47.0 [facility] Comment on above: Performed By: #### B MP3 #### [address] [place], [place] Hemoglobin (Bld) [Mass/Vol] 12.9 g/dL Normal 11.7-16.0 [facility] Comment on above: Performed By: #### B MP3 #### [address] [place] Lymphocytes (Bld) [#/Vol] 1.1 10*3/uL Normal 1.0-4.3 [facility] Comment on above: Performed By: #### B MP3 #### [address] [place] Lymphocytes/100 WBC (Bld) 17.7 % Low 20.0-40.0 [facility] Comment on above: Performed By: #### B MP3 #### [address] [place] MCH (RBC) [Entitic mass] 33.5 pg Normal 26.0-34.0 [facility] Comment on above: Performed By: #### B MP3 #### [address] [place] MCHC 33.9 % Normal 32.0-36.0 [facility] Comment on above: Performed By: #### B MP3 #### [address] [place] MCV (RBC) [Entitic vol] 98.8 fL High 79.0-98.0 [facility] Comment on above: Performed By: #### B MP3 #### [address] [place] [address] Monocytes (Bld) [#/Vol] 0.5 10*3/uL Normal 0.0-0.8 [facility] Comment on above: Performed By: #### B MP3 #### [facility] [address] [place] [address] Monocytes/100 WBC (Bld) 8.5 % Normal 2.0-10.0 [facility] Comment on above: Performed By: #### B MP3 #### [facility] [address] [place] [address] Platelet mean volume (Bld) [Entitic vol] 8.8 fL Normal 7.4-10.4 [facility] Comment on above: Performed By: #### B MP3 #### [address] [place] [address] Platelets (Bld) [#/Vol] 147 10*3/uL Normal 140-440 [facility] Comment on above: Performed By: #### B MP3 #### [address] [place] [address] RBC (Bld) [#/Vol] 3.86 10*6/uL Normal 3.80-5.20 [facility] Comment on above: Performed By: #### B MP3 #### [facility] [address] [place] [address] WBC (Bld) [#/Vol] 6.1 10*3/uL Normal 3.6-10.7 [facility] Comment on above: Performed By: #### B MP3 #### [facility] [address] [place] [address] Magnesiumon 10-21-2020 Magnesium [Mass/Vol] 1.5 mg/dL Low 1.6-2.3 [facility] Comment on above: Performed By: #### B MP3 #### [facility] [address] [place] [address] Magnesium [Mass/Vol] 1.5 mg/dL Low 1.6 - 2.3 mg/dL [facility], [place] Otheron 10-21-2020 Interpretation and review of laboratory results Abnormal [place] Test Performed by [facility], [address] [place] [address] [facility]2020 aPTT Coag (Bld) [Time] 22.9 s Normal 20.0-30.5 [facility] Comment on above: Result Comment: NOTE : The therapeutic time for Heparin anticoagulation, based on Xa activity inhibition, is an APTT of 46-80 seconds. Performed By: #### B MP3 #### [facility] [address] [facility] [place] [place] [address] Basic Metabolic Panelon Anion Gap 6 Normal [facility] Comment on above: Performed By: #### B MP3 #### [facility] [address] [facility] [place] [address] Calcium [Mass/Vol] 7.7 mg/dL Low 8.4-10.4 [facility] Comment on above: Performed By: #### B MP3 #### [facility] [address] [facility] [place] [address] CO2 [Moles/Vol] 26 mmol/L Normal 22-30 [facility] Comment on above: Performed By: #### B MP3 #### [facility] [address] [facility] [place] [address] Glucose [Mass/Vol] 91 mg/dL Normal 70-100 [facility] Comment on above: Performed By: #### B MP3 #### [facility] [address] [facility] [place] [address] Urea nitrogen [Mass/Vol] 13 mg/dL Normal 7-20 [facility] Comment on above: Performed By: #### B MP3 #### [facility] [address] [place] [address] Creatinine [Mass/Vol] 0.41 mg/dL Low 0.52-1.25 [facility] Comment on above: Performed By: #### B MP3 #### [facility] [address] [place] [address] eGFR OTHER > 90.0 Normal >60 [facility] Comment on above: Result Comment: KDIG [...] secretion. Performed By: #### B MP3 #### [address] [place], [place] GFR/1.73 sq M.predicted among blacks MDRD (S/P/Bld) [Vol rate/Area] mL/min/{1.73_m2} Normal >60 [facility] Comment on above: Performed By: #### B MP3 #### [address] [address] [place], [place] Potassium [Moles/Vol] 3.3 mmol/L Low 3.5-5.1 [facility] Comment on above: Performed By: #### B MP3 #### [address] [address] [place], [place] Chloride [Moles/Vol] 105 mmol/L Normal 98-107 [facility] Comment on above: Performed By: #### B MP3 #### [address] [address] [place], [place] Sodium [Moles/Vol] 136 mmol/L Normal 135-145 [facility] Comment on above: Performed By: #### B MP3 #### [address] Basic Metabolic Panel w/ Ref sandra to MGon 10-20-2020 Anion gap [Moles/Vol] 6 mmol/L [facility], [place] Calcium [Mass/Vol] 7.7 mg/dL Low 8.4 - 10. 4 mg/dL [place] Chloride [Moles/Vol] 105 mmol/L 98 - 107 mmol/L [place] CO2 [Moles/Vol] 26 mmol/L 22 - 30 mmol/L [place] Creatinine [Mass/Vol] 0.41 mg/dL Low 0.52 - 1.25 mg/dL [place] EGFR IF NonAfrican [place] >90.0 >60 mL/min [place] Comment on above: KDIGO guidelines pro [...] MDRD (S/P/Bld) [Vol rate/Area] mL/min/{1.73_m2} >60 mL/min [place] Glucose [Mass/Vol] 91 mg/dL 70 - 100 mg/dL [place], [place] Potassium [Moles/Vol] 3.3 mmol/L Low 3.5 - 5.1 mmol/L [place] Sodium [Moles/Vol] 136 mmol/L 135 - 145 mmol/L [place] Urea nitrogen [Mass/Vol] 13 mg/dL 7 - 20 mg/dL [place] CBC auto differentialon 01-0 Absolute Baso # 0.1 10*3/uL 0 - 0.2 10*3/uL [place], [place] Absolute Neut # 6.8 10*3/uL 1.8 - 7 10*3/uL [place] Basophils/100 WBC (Bld) 0.9 % 0 - 2 % [place] Eosinophils (Bld) [#/Vol] 0.0 10*3/uL 0 - 0.5 10*3/uL [place] Eosinophils/100 WBC (Bld) 0.1 % Low 1 - 6 % [place] Erythrocyte distribution width (RBC) [Ratio] 14.8 % High 11.5 - 14.5 % [place] Granulocytes/100 WBC (Bld) 79.5 % 40 - 80 % [place] Hematocrit (Bld) [Volume fraction] 33.3 % Low 35 - 47 % [place] Hemoglobin (Bld) [Mass/Vol] 11.6 g/dL Low 11.7 - 16 g/dL [place] Interpretation and review of laboratory results Abnormal [place] Lymphocytes (Bld) [#/Vol] 1.0 10*3/uL 1 - 4.3 10*3/uL [place] Lymphocytes/100 WBC (Bld) 12.2 % Low 20 - 40 % [place] MCH (RBC) [Entitic mass] 34.4 pg High 26 - 34 pg [place] MCHC (RBC) [Mass/Vol] 34.9 % 32 - 36 % [place] MCV (RBC) [Entitic vol] 98.7 fL High 79 - 98 fL [place] Monocytes (Bld) [#/Vol] 0.6 10*3/uL 0 - 0.8 10*3/uL [place] Monocytes/100 WBC (Bld) 7.3 % 2 - 10 % [place] Platelet mean volume (Bld) [Entitic vol] 9.2 fL 7.4 - 10.4 fL [place] Platelets (Bld) [#/Vol] 121 10*3/uL Low 140 - 440 10*3/uL [place] RBC (Bld) [#/Vol] 3.38 10*6/uL Low 3.8 - 5.2 10*6/uL [facility], [place] WBC (Bld) [#/Vol] 8.5 10*3/uL 3.6 - 10.7 10*3/uL [facility], [place] Test Performed by [facility], [address] [place] [address] [place], [place] CR Elbow 2 Views Lefton CR Elbow 2 Views Left Patient Name: JAZMIN HOLDER Diagnostic Radiology ACCESSION EXAM DATE/TIME PROCEDURE ORDERING PROVIDER [id number] 10/20/2020 13:55 EST CR Elbow 2 Views Left MD TRINIDAD KEVIN CPT code 66947 Reason For Exam (CR Elbow 2 Views [...] 7-10 days. Report Dictated on Workstation: [id number] Final Dictated: 10/20/2020 1:32 pm Dictating Physician: MD CROWELL ANTHONY J Signed Date and Time: 10/20/2020 1:35 pm Signed by: MD CROWELL ANTHONY J Transcribed Date and Time: 10/20/2020 1:32 Normal [facility] CT Head or Brain w/o Contras ton 10-20-2020 CT Head or Brain w/o Contrast Patient Name: JAZMIN JOHNSON Computed Tomography ACCESSION EXAM DATE/TIME PROCEDURE ORDERING PROVIDER [id number] 10/20/2020 05:[address] Head or Brain w/o Bharat GARLAND, JOSE ALBERTO Contrast ZELAYA CPT code 59943 Reason For Exam (CT Head or Brain [...] 12 hours ago. Report Dictated on Workstation: [id number] Final Dictated: 10/20/2020 5:29 am Dictating Physician: MD GUZMAN JEFFREY Signed Date and Time: 10/20/2020 5:42 am Signed by: MD GUZMAN JEFFREY Transcribed Date and Time: 10/20/2020 5:29 Normal [facility] CT head without contraston 0 10-20-2020 Patient Name: JAZMIN JOHNSON Computed Tomography ACCESSION EXAM DATE/TIME PROCEDURE ORDERING PROVIDER [id number] 10/20/2020 05:[address] Head or Brain w/o Bharat GARLAND, JOSE ALBERTO Contrast [facility] CPT code 38259 Reason For Exam (CT Head or Brain [...] 12 hours ago. Report Dictated on Workstation: [id number] --- Final --- Dictated: 10/20/2020 5:29 am Dictating Physician: MD GUZMAN JEFFREY Signed Date and Time: 10/20/2020 5:42 am Signed by: MD GUZMAN JEFFREY Transcribed Date and Time: 10/20/2020 5:29 [facility], [place], [facility] Incoming Radiology Results From [facility] - 10/20/2020 5:43 AM EST Patient Name: JAZMIN JOHNSON Computed Tomography ACCESSION EXAM DATE/TIME PROCEDURE ORDERING PROVIDER [id number] 10/20/2020 05:[address] Head or Brain w/o Bharat GARLAND, JOSE ALBERTO Contrast [facility] CPT code 14039 Reason For Exam (CT Head or Brain [...] 12 hours ago. Report Dictated on Workstation: [id number] --- Final --- Dictated: 10/20/2020 5:29 am Dictating Physician: MD GUZMAN JEFFREY Signed Date and Time: 10/20/2020 5:42 am Signed by: MD GUZMAN JEFFREY Transcribed Date and Time: 10/20/2020 5:29 [facility] [place], [place] CTA HEAD NECK W WO CONTRASTo n 10-20-2020 Willi Alonzo Incoming Radiology Results From [facility] - 10/20/2020 12:48 PM EST Patient Name: JAZMIN JOHNSON Computed Tomography ACCESSION EXAM DATE/TIME PROCEDURE ORDERING PROVIDER [id number] 10/20/2020 11:49 EST CTA Head/Neck w/ + w/o MD CL, JAJA contrast CPT code 38633 11641 Q9967 Reason For Exam (CTA Head/Neck w/ [...] NELSON Transcribed Date and Time: 10/20/2020 12:44 [place] Patient Name: JAZMIN JOHNSON Computed Tomography ACCESSION EXAM DATE/TIME PROCEDURE ORDERING PROVIDER [id number] 10/20/2020 11:49 EST CTA Head/Neck w/ + w/o MD ALBERT LORNA contrast CPT code 85575 94442 Q9967 Reason For Exam (CTA Head/Neck w/ [...] NELSON Transcribed Date and Time: 10/20/2020 12:44 [place] CTA Head/Neck w/ + w/o contr marilynn 10-20-2020 CTA Head/Neck w/ + w/o contrast Patient Name: JAZMIN JOHNSON Computed Tomography ACCESSION EXAM DATE/TIME PROCEDURE ORDERING PROVIDER [id number] 10/20/2020 11:49 EST CTA Head/Neck w/ + w/o MD ALBERT LORNA contrast CPT code 54686 44199 Q9967 Reason For Exam (CTA Head/Neck w/ [...] Transcribed Date and Time: 10/20/2020 12:44 Normal [facility] Complete Urinalysison 2020 Appearance (U) Clear Normal Clear [facility] Comment on above: Result Comment: . Performed By: #### E TOH4 #### [facility] [address] [place], [place] Bilirubin,Urine Negative Normal Negative [facility] Comment on above: Result Comment: . Performed By: #### E TOH4 #### [address] [address] [address] [place], [place] Color (U) Yellow Normal Lt. Yellow [facility] Comment on above: Result Comment: . Performed By: #### E TOH4 #### [address] [address] [address] [place], [place] Glucose Ql (U) Normal Normal Normal (<70) [facility] Comment on above: Result Comment: . Performed By: #### E TOH4 #### [facility] [address] [place], [place] Ketone,Urine 40 mg/dL Abnormal Negative [facility] Comment on above: Result Comment: . Performed By: #### E TOH4 #### [address] [address] [address] [place], [place] Leukocytes,Urine Negative Normal Negative [facility] Comment on above: Result Comment: . Performed By: #### E TOH4 #### [address] [address] [address] [place], [place] Nitrites,Urine Negative Normal Negative [facility] Comment on above: Result Comment: . Performed By: #### E TOH4 #### [address] [address] [place], [place] Occult Blood,Urine Negative Normal Negative [facility] Comment on above: Result Comment: . Performed By: #### E TOH4 #### [address] [address] [address] [place], [place] pH,Urine 8.0 Normal 5.0-8.0 [facility] Comment on above: Result Comment: . Performed By: #### E TOH4 #### [facility] [address] [place], [place] Protein (U) [Mass/Vol] 20 mg/dL Abnormal Negative [facility] Comment on above: Result Comment: . Performed By: #### E TOH4 #### [facility] [address] [place], [place] Specific [place],Urine > 1.030 Abnormal 1.005 - 1.030 [facility] Comment on above: Result Comment: . Performed By: #### E TOH4 #### [facility] [address] [place], [place] Urobilinogen,Urine 2 mg/dL Abnormal Normal (0-1) [facility] Comment on above: Result Comment: . Performed By: #### E TOH4 #### [address] [place], [place] Drugs of Abuseon 10-20-2020 Opiates, Ur Negative Normal [facility] Comment on above: Performed By: #### E TOH4 #### [facility] [address] [place], [place] Phencyclidine (PCP), Ur Negative Normal [facility] Comment on above: Result Comment: The [...] order. Performed By: #### E TOH4 #### [facility] [address] [place] [address] Methadone, Ur Negative Normal [facility] Comment on above: Performed By: #### E TOH4 #### [address] [address] [address] [place], [place] Benzodiazepines, Ur Negative Normal [facility] Comment on above: Performed By: #### E TOH4 #### [address] [address] [place], [place] Cocaine, Ur Negative Normal [facility] Comment on above: Performed By: #### E TOH4 #### [address] [address] [address] [place], [place] Amphetamines, Ur Negative Normal [facility] Comment on above: Performed By: #### E TOH4 #### [address] [address] [place], [place] Barbiturates, Ur Negative Normal [facility] Comment on above: Performed By: #### E TOH4 #### [address] [address] [address] [place], [place] Oxycodone/Oxymorphine ,Ur Negative Normal [facility] Comment on above: Performed By: #### E TOH4 #### [address] [address] [address] [place], [place] Ethanol Serum/Plasmaon 10-20 Ethanol-Serum/Plasma 0.049 g/dL High 0.000-0.010 [facility] Comment on above: Result Comment: NOTE : This result is for medical treatment only. Analysis performed using non-forensic procedures. Performed By: #### E TOH4 #### [address] [place], [place] Hemogram w/ Autodiffon 10-20 Platelet mean volume (Bld) [Entitic vol] 9.2 fL Normal 7.4-10.4 [facility] Comment on above: Performed By: #### B MP3 #### [address] [address] [address] [place], [place] Platelets (Bld) [#/Vol] 121 10*3/uL Low 140-440 [facility] Comment on above: Performed By: #### B MP3 #### [address] [address] [address] [place], [place] Abs Baso Cnt 0.1 10*3/uL Normal 0.0-0.2 [facility] Comment on above: Performed By: #### B MP3 #### [facility] [address] [place] [address] Abs Neutrophile Cnt 6.8 10*3/uL Normal 1.8-7.0 [facility] Comment on above: Performed By: #### B MP3 #### [facility] [address] [place] [address] Basophils/100 WBC (Bld) 0.9 % Normal 0.0-2.0 [facility] Comment on above: Performed By: #### B MP3 #### [facility] [address] [place], [place] Eosinophils (Bld) [#/Vol] 0.0 10*3/uL Normal 0.0-0.5 [facility] Comment on above: Performed By: #### B MP3 #### [facility] [address] [place], [place] Eosinophils/100 WBC (Bld) 0.1 % Low 1.0-6.0 [facility] Comment on above: Performed By: #### B MP3 #### [facility] [address] [place] Erythrocyte distribution width (RBC) [Ratio] 14.8 % High 11.5-14.5 [facility] Comment on above: Performed By: #### B MP3 #### [facility] [address] [place] Granulocytes/100 WBC (Bld) 79.5 % Normal 40.0-80.0 [facility] Comment on above: Performed By: #### B MP3 #### [facility] [address] [place] Hematocrit (Bld) [Volume fraction] 33.3 % Low 35.0-47.0 [facility] Comment on above: Performed By: #### B MP3 #### [facility] [address] [place] Hemoglobin (Bld) [Mass/Vol] 11.6 g/dL Low 11.7-16.0 [facility] Comment on above: Performed By: #### B MP3 #### [facility] [address] [place], [place] Lymphocytes (Bld) [#/Vol] 1.0 10*3/uL Normal 1.0-4.3 [facility] Comment on above: Performed By: #### B MP3 #### [facility] [address] [place] Lymphocytes/100 WBC (Bld) 12.2 % Low 20.0-40.0 [facility] Comment on above: Performed By: #### B MP3 #### [facility] [address] [place], [place] MCH (RBC) [Entitic mass] 34.4 pg High 26.0-34.0 [facility] Comment on above: Performed By: #### B MP3 #### [facility] [address] [place] MCHC 34.9 % Normal 32.0-36.0 [facility] Comment on above: Performed By: #### B MP3 #### [facility] [address] [place] MCV (RBC) [Entitic vol] 98.7 fL High 79.0-98.0 [facility] Comment on above: Performed By: #### B MP3 #### [facility] [address] [place] Monocytes (Bld) [#/Vol] 0.6 10*3/uL Normal 0.0-0.8 [facility] Comment on above: Performed By: #### B MP3 #### [facility] [address] [place], [place] Monocytes/100 WBC (Bld) 7.3 % Normal 2.0-10.0 [facility] Comment on above: Performed By: #### B MP3 #### [facility] [address] [place], [place] RBC (Bld) [#/Vol] 3.38 10*6/uL Low 3.80-5.20 [facility] Comment on above: Performed By: #### B MP3 #### [facility] [address] [facility], [place] WBC (Bld) [#/Vol] 8.5 10*3/uL Normal 3.6-10.7 [facility] Comment on above: Performed By: #### B MP3 #### [facility] [address] [facility], [place] Hepatic Functionon 1 ALP [Catalytic activity/Vol] 45 U/L Normal 38-126 [facility] Comment on above: Performed By: #### B MP3 #### [facility] [address] [facility], [place] ALT [Catalytic activity/Vol] 39 U/L High 0-34 [facility] Comment on above: Result Comment: The ALT test is performed by an updated assay method. Please note that the reference intervals have been changed and are now sex specific. Performed By: #### B MP3 #### [facility] [address] [facility], [place] AST [Catalytic activity/Vol] 48 U/L High 15-46 [facility] Comment on above: Performed By: #### B MP3 #### [facility] [address] [facility] Bilirubin [Mass/Vol] 0.5 mg/dL Normal 0.2-1.3 [facility] Comment on above: Performed By: #### B MP3 #### [facility] [address] [facility] Bilirubin.indirect [Mass/Vol] 0.0 mg/dL Normal 0.0-0.3 [facility] Comment on above: Performed By: #### B MP3 #### [facility] [address] [facility], [place] Protein [Mass/Vol] 5.5 g/dL Low 6.3-8.2 [facility] Comment on above: Performed By: #### B MP3 #### [facility] [address] [facility] Albumin [Mass/Vol] 3.0 g/dL Low 3.5-5.0 [facility] Comment on above: Performed By: #### B MP3 #### [address] [address] [place] [address] Hepatic function panelon Albumin [Mass/Vol] 3.0 g/dL Low 3.5 - 5 g/dL [place] ALP [Catalytic activity/Vol] 45 U/L 38 - 126 U/L [place] ALT [Catalytic activity/Vol] 39 U/L High 0 - 34 U/L [place] Comment on above: The ALT test is perf ormed by an updated assay method. Please note that the reference intervals have been changed and are now sex specific. AST [Catalytic activity/Vol] 48 U/L High 15 - 46 U/L [place] Bilirubin Ql (U) 0.5 mg/dL 0.2 - 1.3 mg/dL [place], [place] Bilirubin.direct [Mass/Vol] 0.0 mg/dL 0 - 0.3 mg/dL [place] Protein [Mass/Vol] 5.5 g/dL Low 6.3 - 8.2 g/dL [place] Magnesiumon 10-20-2020 Magnesium [Mass/Vol] 0.9 mg/dL Critically low 1.6-2.3 [facility] Comment on above: Performed By: #### B MP3 #### [address] Interpretation and review of laboratory results Abnormal [place] Magnesium [Mass/Vol] 0.9 mg/dL Critically low 1.6 - 2.3 m g/dL [place] Test Performed by [address] [address] [place] Otheron 10-20-2020 Interpretation and review of laboratory results Abnormal [place] Test Performed by [facility], [address] [place] [address] [place] Prothrombin Timeon INR 1.0 Normal 0.9-1.1 [facility] Comment on above: Result Comment: Daniel [...] Infarction Performed By: #### B MP3 #### [address] [address] PT Coag (PPP) [Time] 10.4 s Normal 9.0-12.0 [facility] Comment on above: Result Comment: . Performed By: #### B MP3 #### [address] [address] Urinalysison 10-20-2020 Appearance (U) Clear Clear [place], [place] Comment on above: . Bilirubin Urine Negative Negative mg/dL [place] Comment on above: . Color (U) Yellow Lt. Yellow NA [place] Comment on above: . Glucose, Ur Normal Normal (<70) mg/dL [place] Comment on above: . Interpretation and review of laboratory results Abnormal [place] Ketones Ql (U) 40 mg/dL Abnormal Negative [place] Comment on above: . LEUKOCYTES, UA Negative Negative Jennifer/uL [place] Comment on above: . Nitrite, Urine Negative Negative [place], [place] Comment on above: . Occult Blood,Urine Negative Negative mg/dL [place] Comment on above: . pH (U) 8.0 [pH] [place] Comment on above: . Protein (U) [Mass/Vol] 20 mg/dL Abnormal Negative [place] Comment on above: . Specific [place], Urine >1.030 Abnormal [place] Comment on above: . Urobilinogen, Urine 2 mg/dL Abnormal Normal (0-1) [place], [place] Comment on above: . Test Performed by [facility] [address] [address] [place], [place] Urine Drug Screenon 10-20-19 21 Amphetamines, urine Negative [facility], [place] Barbiturates, Ur Negative [facility], [place] Benzodiazepine Ur Qual Negative [facility], [place] Cocaine Metabolites, Ur Negative [facility], [place] Methadone, Urine Negative [facility] [place], [place] Opiates, Urine Negative [facility], [place] Oxycodone Screen, Ur Negative [facility], [place] PCP, Urine Negative [facility], [place] Comment on above: The expected value [...] confirmation under separate order. Test Performed by [facility], [address] [place] [address] [place] XR ELBOW LEFT (2 VIEWS)on [place], [facility] Incoming Radiology Results From [facility] - 10/20/2020 1:56 PM EST Patient Name: JAZMIN JOHNSON Diagnostic Radiology ACCESSION EXAM DATE/TIME PROCEDURE ORDERING PROVIDER [id number] 10/20/2020 13:55 EST CR Elbow 2 Views Left MD TRINIDAD KEVIN CPT code 80546 Reason For Exam (CR Elbow 2 Views [...] in 7-10 days. Report Dictated on Workstation: [id number] --- Final --- Dictated: 10/20/2020 1:32 pm Dictating Physician: MD CROWELL ANTHONY J Signed Date and Time: 10/20/2020 1:35 pm Signed by: MD CROWELL ANTHONY J Transcribed Date and Time: 10/20/2020 1:32 [place] Patient Name: JAZMIN JOHNSON Diagnostic Radiology ACCESSION EXAM DATE/TIME PROCEDURE ORDERING PROVIDER [id number] 10/20/2020 13:55 EST CR Elbow 2 Views Left MD TRINIDAD KEVIN CPT code 87093 Reason For Exam (CR Elbow 2 Views [...] in 7-10 days. Report Dictated on Workstation: [id number] --- Final --- Dictated: 10/20/2020 1:32 pm Dictating Physician: MD CROWELL ANTHONY J Signed Date and Time: 10/20/2020 1:35 pm Signed by: MD CROWELL ANTHONY J Transcribed Date and Time: 10/20/2020 1:32 [place] AMMONIAon 10-19-2020 Ammonia (P) [Mass/Vol] ug/dL 9 - 30 umol/L [place] Test Performed by [facility], [address] [place], [place], [place] [id number] [place] [address] APTTon 10-19-2020 aPTT Coag (Bld) [Time] 22.9 s 20 - 30.5 s [facility], [place] Comment on above: NOTE: The therapeuti c time for Heparin anticoagulation, based on Xa activity inhibition, is an APTT of 46-80 seconds. Ammoniaon 10-19-2020 Ammonia (P) [Mass/Vol] ug/dL Normal 9-30 [facility] Comment on above: Performed By: #### B MP3, CK3, TROPN, LFT3, HEMDF, NH33, ETOH4 #### [facility] [address] [place] [address] Basic Metabolic Panelon Anion Gap 9 Normal [facility] Comment on above: Performed By: #### B MP3, CK3, TROPN, LFT3, HEMDF, NH33, ETOH4 #### [facility] [address] [place] [address] CO2 [Moles/Vol] 30 mmol/L Normal 22-30 [facility] Comment on above: Performed By: #### B MP3, CK3, TROPN, LFT3, HEMDF, NH33, ETOH4 #### [facility] [address] [place] [address] Creatinine [Mass/Vol] 0.54 mg/dL Normal 0.52-1.25 [facility] Comment on above: Performed By: #### B MP3, CK3, TROPN, LFT3, HEMDF, NH33, ETOH4 #### [facility] [address] [place] [address] eGFR OTHER > 90.0 Normal >60 [facility] Comment on above: Result Comment: KDIG [...] CK3, TROPN, LFT3, HEMDF, NH33, ETOH4 #### [facility] [address] [place] [address] GFR/1.73 sq M.predicted among blacks MDRD (S/P/Bld) [Vol rate/Area] mL/min/{1.73_m2} Normal >60 [facility] Comment on above: Performed By: #### B MP3, CK3, TROPN, LFT3, HEMDF, NH33, ETOH4 #### [facility] [address] [place] [address] Chloride [Moles/Vol] 99 mmol/L Normal 98-107 [facility] Comment on above: Performed By: #### B MP3, CK3, TROPN, LFT3, HEMDF, NH33, ETOH4 #### [facility] [address] [place] [address] Potassium [Moles/Vol] 3.6 mmol/L Normal 3.5-5.1 [facility] Comment on above: Performed By: #### B MP3, CK3, TROPN, LFT3, HEMDF, NH33, ETOH4 #### [facility] [address] [place] [address] Sodium [Moles/Vol] 139 mmol/L Normal 135-145 [facility] Comment on above: Performed By: #### B MP3, CK3, TROPN, LFT3, HEMDF, NH33, ETOH4 #### [facility] [address] [place] [address] Calcium [Mass/Vol] 9.2 mg/dL Normal 8.4-10.4 [place] Comment on above: Performed By: #### B MP3, CK3, TROPN, LFT3, HEMDF, NH33, ETOH4 #### [facility] [address] [place] [address] Glucose [Mass/Vol] 97 mg/dL Normal 70-100 [place], [place] Comment on above: Performed By: #### B MP3, CK3, TROPN, LFT3, HEMDF, NH33, ETOH4 #### [facility] [address] [place] [address] Urea nitrogen [Mass/Vol] 12 mg/dL Normal 7-20 [place] Comment on above: Performed By: #### B MP3, CK3, TROPN, LFT3, HEMDF, NH33, ETOH4 #### [facility] [address] [place] [address] Anion gap [Moles/Vol] 9 mmol/L [place], [place] Chloride [Moles/Vol] 99 mmol/L 98 - 107 mmol/L [place] CO2 [Moles/Vol] 30 mmol/L 22 - 30 mmol/L [place] Creatinine [Mass/Vol] 0.54 mg/dL 0.52 - 1.25 mg/dL [place] EGFR IF NonAfrican [place] >90.0 >60 mL/min [place] Comment on above: KDIGO guidelines pro [...] MDRD (S/P/Bld) [Vol rate/Area] mL/min/{1.73_m2} >60 mL/min [place] Potassium [Moles/Vol] 3.6 mmol/L 3.5 - 5.1 mmol/L [place] Sodium [Moles/Vol] 139 mmol/L 135 - 145 mmol/L [place] CKon 10-19-2020 CK [Catalytic activity/Vol] 90 U/L Normal 30-170 [facility] Comment on above: Performed By: #### B MP3, CK3, TROPN, LFT3, HEMDF, NH33, ETOH4 #### [facility] [address] [place] [address] Total CK 90 U/L 30 - 170 U/L [place], [place] Abdomen Pelvis W Contrast on 10-19-2020 Patient Name: JAZMIN JOHNSON Computed Tomography ACCESSION EXAM DATE/TIME PROCEDURE ORDERING PROVIDER [id number] 10/19/2020 18:[address] Abdomen/Pelvis w/ IV JACK BHATTI Contrast (IV Onl CPT code 15257 Reason For Exam (CT Abdomen/Pelvis w/ IV [...] R Transcribed Date and Time: 10/19/2020 6:30 [place] Incoming Radiology Results From [facility] - 10/19/2020 6:30 PM EST Patient Name: [id number] Computed Tomography ACCESSION EXAM DATE/TIME PROCEDURE ORDERING PROVIDER [id number] 10/19/2020 18:[address] Abdomen/Pelvis w/ IV JACK BHATTI Contrast (IV Onl CPT code 28872 Reason For Exam (CT Abdomen/Pelvis w/ IV [...] R Transcribed Date and Time: 10/19/2020 6:30 [place] Abdomen/Pelvis w/ Contras ton 10-19-2020 CT Abdomen/Pelvis w/ Contrast Patient [facility]: [id number] Computed Tomography ACCESSION EXAM DATE/TIME PROCEDURE ORDERING PROVIDER [id number] 10/19/2020 18:[address] Abdomen/Pelvis w/ IV JACK BHATTI Contrast (IV Onl CPT code 95514 Reason For Exam (CT Abdomen/Pelvis w/ IV [...] Time: 10/19/2020 6:29 pm Signed by: MD ERI, MURIEL Aparicio Transcribed Date and Time: 10/19/2020 6:30 Normal [facility] CT CHEST W CONTRASTon 2020 Patient Name: JAZMIN JOHNSON Computed Tomography ACCESSION EXAM DATE/TIME PROCEDURE ORDERING PROVIDER [id number] 10/19/2020 18:[address] Thorax w/ Contrast JACK BHATTI CPT code 25364 Q9967 Reason For Exam (CT Thorax w/ [...] R Transcribed Date and Time: 10/19/2020 6:30 [place], [facility] Incoming Radiology Results From [facility] - 10/19/2020 6:30 PM EST Patient Name: JAZMIN JOHNSON Computed Tomography ACCESSION EXAM DATE/TIME PROCEDURE ORDERING PROVIDER [id number] 10/19/2020 18:[address] Thorax w/ Contrast JACK BHATTI CPT code 70799 Q9967 Reason For Exam (CT Thorax w/ [...] R Transcribed Date and Time: 10/19/2020 6:30 [place] CT Cervical Spine WO Lisa box 10-19-2020 [place] Incoming Radiology Results From [facility] - 10/19/2020 6:21 PM EST Patient Name: JAZMIN JOHNSON Computed Tomography ACCESSION EXAM DATE/TIME PROCEDURE ORDERING PROVIDER [id number] 10/19/2020 18:[address] Spine Cervical w/o HAVERCHAK, ALEJANDRO Contrast CPT code 07342 Reason For Exam (CT Spine Cervical w/o [...] R Transcribed Date and Time: 10/19/2020 6:21 [place] Patient Name: JAZMIN JOHNSON Computed Tomography ACCESSION EXAM DATE/TIME PROCEDURE ORDERING PROVIDER [id number] 10/19/2020 18:[address] Spine Cervical w/o HAVERCHAK, ALEJANDRO Contrast CPT code 22728 Reason For Exam (CT Spine Cervical w/o [...] R Transcribed Date and Time: 10/19/2020 6:21 [place] CT Chest w/ Contraston 10-19 CT Chest w/ Contrast Patient Name: JAZMIN JOHNSON Computed Tomography ACCESSION EXAM DATE/TIME PROCEDURE ORDERING PROVIDER [id number] 10/19/2020 18:[address] Thorax w/ Contrast JACK BHATTI CPT code 59120 Q9967 Reason For Exam (CT Thorax w/ [...] Transcribed Date and Time: 10/19/2020 6:30 Normal [facility] CT Facial Bones ANNE Ho antoine 10-19-2020 [place], [facility]2020 6:25 PM EST Patient Name: JAZMIN JOHNSON Computed Tomography ACCESSION EXAM DATE/TIME PROCEDURE ORDERING PROVIDER [id number] 10/19/2020 18:[address] Maxillofacial w/o LEI AGUILARNDRA Contrast CPT code 61465 Reason For Exam (CT Maxillofacial w/o Contrast) [...] R Transcribed Date and Time: 10/19/2020 6:25 [place] Patient Name: JAZMIN JOHNSON [facility]#: [id number] Computed Tomography ACCESSION EXAM DATE/TIME PROCEDURE ORDERING PROVIDER [id number] 10/19/2020 18:[address] Maxillofacial w/o ALEJANDRO AGUILAR Contrast CPT code 38440 Reason For Exam (CT Maxillofacial w/o Contrast) [...] R Transcribed Date and Time: 10/19/2020 6:25 [place] CT Head WO Contraston 2020 [place] Incoming Radiology Results From [facility] - 10/19/2020 6:18 PM EST Patient Name: JAZMIN JOHNSON Computed Tomography ACCESSION EXAM DATE/TIME PROCEDURE ORDERING PROVIDER [id number] 10/19/2020 18:[address] Head or Brain w/o HAVEVINH ALEJANDRO Contrast CPT code 18171 Reason For Exam (CT Head or Brain [...] R Transcribed Date and Time: 10/19/2020 6:18 [place] Patient Name: [id number] Computed Tomography ACCESSION EXAM DATE/TIME PROCEDURE ORDERING PROVIDER [id number] 10/19/2020 18:[address] Head or Brain w/o ALEJANDRO AGUILAR Contrast CPT code 75888 Reason For Exam (CT Head or Brain [...] R Transcribed Date and Time: 10/19/2020 6:18 [place] Head or Brain w/o Contras ton 10-19-2020 CT Head or Brain w/o Contrast Patient Name: JAZMIN JOHNSON [facility]#: [id number] Computed Tomography ACCESSION EXAM DATE/TIME PROCEDURE ORDERING PROVIDER [id number] 10/19/2020 18:[address] Head or Brain w/o ALEJANDRO AGUILAR Contrast CPT code 58109 Reason For Exam (CT Head or Brain [...] Transcribed Date and Time: 10/19/2020 6:18 Normal [facility] CT Maxillofacial w/o Contras ton 10-19-2020 CT Maxillofacial w/o Contrast Patient Name: JAZMIN JOHNSON Computed Tomography ACCESSION EXAM DATE/TIME PROCEDURE ORDERING PROVIDER [id number] 10/19/2020 18:[address] Maxillofacial w/o ALEJANDRO AGUILAR Contrast CPT code 81204 Reason For Exam (CT Maxillofacial w/o Contrast) [...] Transcribed Date and Time: 10/19/2020 6:25 Normal [facility] CT Spine Cervical w/o Contra ston 10-19-2020 CT Spine Cervical w/o Contrast Patient Name: JAZMIN JOHNSON Computed Tomography ACCESSION EXAM DATE/TIME PROCEDURE ORDERING PROVIDER [id number] 10/19/2020 18:[address] Spine Cervical w/o ALEJANDRO AGUILAR Contrast CPT code 48010 Reason For Exam (CT Spine Cervical w/o [...] Transcribed Date and Time: 10/19/2020 6:21 Normal [facility] ED Provider Noteon ED Provider Note Emergency Department Encounter [facility] ED Patient: Jazmin Johnson : 1950 Date [...] MD 10/19/20 190 Jack Bhatti MD 10/19/20 190 [facility] ED Patient: Jazmin Johnson : 1950 Date [...] ? Head Injury ? Altered Mental Status [place] Jazmin Johnson is a 70 y.o. female [...] otherwise acutely negative except as in the [place]. Past History Past Medical History: Diagnosis Date [...] on phone: None Gets together: None Attends tenriism service: None Active member of club or [...] hemotympanum. Left Ear: No hemotympanum. Mouth/Throat: Lips: [place]. Mouth: Mucous membranes are dry. Pharynx: Oropharynx [...] sounds: Norm (more content not included)... Normal [facility] Ethanolon 10-19-2020 Ethanol Lvl 0.049 g/dL High 0 - 0.01 g/dL [place], [place] Comment on above: NOTE: This result is for medical treatment only. Analysis performed using non-forensic procedures. Interpretation and review of laboratory results Abnormal [place] Test Performed by [facility], [address] [place] [address] [place] Ethanol Lvl 0.223 g/dL High 0 - 0.01 g/dL [place] Comment on above: NOTE: This result is for medical treatment only. Analysis performed using non-forensic procedures. Ethanol Serum/Plasmaon 10-19 Ethanol-Serum/Plasma 0.223 g/dL High 0.000-0.010 [facility] Comment on above: Result Comment: NOTE : This result is for medical treatment only. Analysis performed using non-forensic procedures. Performed By: #### B MP3, CK3, TROPN, LFT3, HEMDF, NH33, ETOH4 #### [facility] [address] [place] [address] Hemogram (CBC) w/Auto Diffon 10-19-2020 Absolute Baso # 0.1 10*3/uL 0 - 0.2 10*3/uL [place], [place] Absolute Neut # 5.2 10*3/uL 1.8 - 7 10*3/uL [place] Basophils/100 WBC (Bld) 1.1 % 0 - 2 % [place] Eosinophils (Bld) [#/Vol] 0.0 10*3/uL 0 - 0.5 10*3/uL [place] Eosinophils/100 WBC (Bld) 0.4 % Low 1 - 6 % [place] Erythrocyte distribution width (RBC) [Ratio] 15.1 % High 11.5 - 14.5 % [place] Granulocytes/100 WBC (Bld) 75.3 % 40 - 80 % [place] Hematocrit (Bld) [Volume fraction] 41.7 % 35 - 47 % [place] Hemoglobin (Bld) [Mass/Vol] 13.9 g/dL 11.7 - 16 g/dL [place] Interpretation and review of laboratory results Abnormal [place] Lymphocytes (Bld) [#/Vol] 1.1 10*3/uL 1 - 4.3 10*3/uL [place] Lymphocytes/100 WBC (Bld) 16.5 % Low 20 - 40 % [place] MCH (RBC) [Entitic mass] 33.3 pg 26 - 34 pg [place] MCHC (RBC) [Mass/Vol] 33.4 % 32 - 36 % [place] MCV (RBC) [Entitic vol] 99.6 fL High 79 - 98 fL [place] Monocytes (Bld) [#/Vol] 0.5 10*3/uL 0 - 0.8 10*3/uL [place] Monocytes/100 WBC (Bld) 6.7 % 2 - 10 % [place] Platelet mean volume (Bld) [Entitic vol] 8.7 fL 7.4 - 10.4 fL [place] Platelets (Bld) [#/Vol] 137 10*3/uL Low 140 - 440 10*3/uL [place] RBC (Bld) [#/Vol] 4.19 10*6/uL 3.8 - 5.2 10*6/uL [place] WBC (Bld) [#/Vol] 6.9 10*3/uL 3.6 - 10.7 10*3/uL [place] Test Performed by [facility], [address], [place], [place] [address] [place] Hemogram w/ Autodiffon 10-19 Abs Baso Cnt 0.1 10*3/uL Normal 0.0-0.2 [facility] Comment on above: Performed By: #### B MP3, CK3, TROPN, LFT3, HEMDF, NH33, ETOH4 #### [facility] [address] [place] [address] Abs Neutrophile Cnt 5.2 10*3/uL Normal 1.8-7.0 [facility] Comment on above: Performed By: #### B MP3, CK3, TROPN, LFT3, HEMDF, NH33, ETOH4 #### [facility] [address] [place] [address] Basophils/100 WBC (Bld) 1.1 % Normal 0.0-2.0 [facility] Comment on above: Performed By: #### B MP3, CK3, TROPN, LFT3, HEMDF, NH33, ETOH4 #### [facility] [address] [place] [address] Eosinophils (Bld) [#/Vol] 0.0 10*3/uL Normal 0.0-0.5 [facility] Comment on above: Performed By: #### B MP3, CK3, TROPN, LFT3, HEMDF, NH33, ETOH4 #### [facility] [address] [place] [address] Eosinophils/100 WBC (Bld) 0.4 % Low 1.0-6.0 [facility] Comment on above: Performed By: #### B MP3, CK3, TROPN, LFT3, HEMDF, NH33, ETOH4 #### [facility] [address] [place] [address] Erythrocyte distribution width (RBC) [Ratio] 15.1 % High 11.5-14.5 [facility] Comment on above: Performed By: #### B MP3, CK3, TROPN, LFT3, HEMDF, NH33, ETOH4 #### [facility] [address] [place] [address] Granulocytes/100 WBC (Bld) 75.3 % Normal 40.0-80.0 [facility] Comment on above: Performed By: #### B MP3, CK3, TROPN, LFT3, HEMDF, NH33, ETOH4 #### [facility] [address] [place] [address] Hematocrit (Bld) [Volume fraction] 41.7 % Normal 35.0-47.0 [facility] Comment on above: Performed By: #### B MP3, CK3, TROPN, LFT3, HEMDF, NH33, ETOH4 #### [facility] [address] [place] [address] Hemoglobin (Bld) [Mass/Vol] 13.9 g/dL Normal 11.7-16.0 [facility] Comment on above: Performed By: #### B MP3, CK3, TROPN, LFT3, HEMDF, NH33, ETOH4 #### [facility] [address] [place] [address] Lymphocytes (Bld) [#/Vol] 1.1 10*3/uL Normal 1.0-4.3 [facility] Comment on above: Performed By: #### B MP3, CK3, TROPN, LFT3, HEMDF, NH33, ETOH4 #### [facility] [address] [place] [address] Lymphocytes/100 WBC (Bld) 16.5 % Low 20.0-40.0 [facility] Comment on above: Performed By: #### B MP3, CK3, TROPN, LFT3, HEMDF, NH33, ETOH4 #### [facility] [address] [place] [address] MCH (RBC) [Entitic mass] 33.3 pg Normal 26.0-34.0 [facility] Comment on above: Performed By: #### B MP3, CK3, TROPN, LFT3, HEMDF, NH33, ETOH4 #### [facility] [address] [place] [address] MCHC 33.4 % Normal 32.0-36.0 [facility] Comment on above: Performed By: #### B MP3, CK3, TROPN, LFT3, HEMDF, NH33, ETOH4 #### [facility] [address] [place] [address] MCV (RBC) [Entitic vol] 99.6 fL High 79.0-98.0 [facility] Comment on above: Performed By: #### B MP3, CK3, TROPN, LFT3, HEMDF, NH33, ETOH4 #### [facility] [address] [place] [address] Monocytes (Bld) [#/Vol] 0.5 10*3/uL Normal 0.0-0.8 [facility] Comment on above: Performed By: #### B MP3, CK3, TROPN, LFT3, HEMDF, NH33, ETOH4 #### [facility] [address] [place] [address] Monocytes/100 WBC (Bld) 6.7 % Normal 2.0-10.0 [facility] Comment on above: Performed By: #### B MP3, CK3, TROPN, LFT3, HEMDF, NH33, ETOH4 #### [facility] [address] [place] [address] Platelet mean volume (Bld) [Entitic vol] 8.7 fL Normal 7.4-10.4 [facility] Comment on above: Performed By: #### B MP3, CK3, TROPN, LFT3, HEMDF, NH33, ETOH4 #### [facility] [address] [place] [address] Platelets (Bld) [#/Vol] 137 10*3/uL Low 140-440 [facility] Comment on above: Performed By: #### B MP3, CK3, TROPN, LFT3, HEMDF, NH33, ETOH4 #### [facility] [address] [place] [address] RBC (Bld) [#/Vol] 4.19 10*6/uL Normal 3.80-5.20 [facility] Comment on above: Performed By: #### B MP3, CK3, TROPN, LFT3, HEMDF, NH33, ETOH4 #### [facility] [address] [place] [address] WBC (Bld) [#/Vol] 6.9 10*3/uL Normal 3.6-10.7 [facility] Comment on above: Performed By: #### B MP3, CK3, TROPN, LFT3, HEMDF, NH33, ETOH4 #### [facility] [address] [place] [address] Hepatic Functionon 1 AST [Catalytic activity/Vol] 75 U/L High 15-46 [facility] Comment on above: Performed By: #### B MP3, CK3, TROPN, LFT3, HEMDF, NH33, ETOH4 #### [facility] [address] [place] [address] Bilirubin [Mass/Vol] 0.4 mg/dL Normal 0.2-1.3 [facility] Comment on above: Performed By: #### B MP3, CK3, TROPN, LFT3, HEMDF, NH33, ETOH4 #### [facility] [address] [place] [address] Bilirubin.indirect [Mass/Vol] 0.0 mg/dL Normal 0.0-0.3 [facility] Comment on above: Performed By: #### B MP3, CK3, TROPN, LFT3, HEMDF, NH33, ETOH4 #### [facility] [address] [place] [address] Protein [Mass/Vol] 6.5 g/dL Normal 6.3-8.2 [facility] Comment on above: Performed By: #### B MP3, CK3, TROPN, LFT3, HEMDF, NH33, ETOH4 #### [facility] [address] [place] [address] Albumin [Mass/Vol] 3.8 g/dL Normal 3.5-5.0 [facility] Comment on above: Performed By: #### B MP3, CK3, TROPN, LFT3, HEMDF, NH33, ETOH4 #### [facility] [address] [place] [address] ALP [Catalytic activity/Vol] 63 U/L Normal 38-126 [place] Comment on above: Performed By: #### B MP3, CK3, TROPN, LFT3, HEMDF, NH33, ETOH4 #### [facility] [address] [place] [address] ALT [Catalytic activity/Vol] 59 U/L High 0-34 [place] Comment on above: The ALT test [...] CK3, TROPN, LFT3, HEMDF, NH33, ETOH4 #### [facility] [address] [place] [address] Hepatic Function Panelon Albumin [Mass/Vol] 3.8 g/dL 3.5 - 5 g/dL [place] AST [Catalytic activity/Vol] 75 U/L High 15 - 46 U/L [place] Bilirubin Ql (U) 0.4 mg/dL 0.2 - 1.3 mg/dL [place] Bilirubin.direct [Mass/Vol] 0.0 mg/dL 0 - 0.3 mg/dL [place] Protein [Mass/Vol] 6.5 g/dL 6.3 - 8.2 g/dL [place], [place] Otheron 10-19-2020 Test Performed by [facility], [address] [place] [address] [place] Interpretation and review of laboratory results Abnormal [place] Test Performed by [facility], [address], [place], [place] [address] [place] Protime-INRon 10-19-2020 INR Coag (PPP) [Relative time] 1.0 {INR} [place] Comment on above: Recommended Anticoag ulant [...] [Time] 10.4 s 9 - 12 s [place], [place] Comment on above: . Troponin Ion 10-19-2020 Troponin I.cardiac [Mass/Vol] ng/mL Normal 0.000-0.034 [facility] Comment on above: Result Comment: . Performed By: #### B MP3, CK3, TROPN, LFT3, HEMDF, NH33, ETOH4 #### [facility] [address] [place] [address] Troponin x1on 10-19-2020 Troponin I.cardiac [Mass/Vol] ng/mL 0 - 0.034 ng/mL [place] Comment on above: . Test Performed by [facility], [address], [place], [place] [address] [place] Basic Metabolic PanelOrdered By: Jack Bhatti on 11-03-2019 Anion gap [Moles/Vol] 11 mmol/L [facility] Work Phone: [phone] Calcium [Mass/Vol] 9.1 mg/dL 8.4 - 10. 4 mg/dL [facility] Work Phone: [phone] Chloride [Moles/Vol] 108 mmol/L High 98 - 107 mmol/L [facility] Work Phone: [phone] [Moles/Vol] 26 mmol/L 22 - 30 mmol/L [facility] Work Phone: [phone] Creatinine [Mass/Vol] 0.52 mg/dL 0.52 - 1.25 mg/dL [facility] Work Phone: [phone] IF NonAfrican B[place]ian >60.0 >60 mL/min [facility] Work Phone: [phone] Comment on above: Source- MDRD equatio n with creatinine calibration to IDMS(NKDEP) eGFR not recommended for drug dose adjustment GFR/1.73 sq M.predicted among blacks MDRD (S/P/Bld) [Vol rate/Area] mL/min/{1.73_m2} >60 mL/min [facility] Work Phone: [phone] Glucose [Mass/Vol] 90 mg/dL 70 - 100 mg/dL [facility] Work Phone: [phone] Interpretation and review of laboratory results Abnormal [facility] Work Phone: [phone] Potassium [Moles/Vol] 3.8 mmol/L 3.5 - 5.1 mmol/L [facility] Work Phone: [phone] Sodium [Moles/Vol] 145 mmol/L 135 - 145 mmol/L [facility] Work Phone: [phone] Urea nitrogen [Mass/Vol] 12 mg/dL 7 - 20 mg/dL [facility] Work Phone: CT Cervical Spine WO Contras tOrdered By: Jack Bhatti on 11-03-2019 Patient Name: JAZMIN JOHNSON ---CT--- Exam Date/Time 11/03/2019 16:16:[address] Spine Cervical w/o Contrast Ordering Physician JACK BHATTI Accession Number [id number] CPT4 Codes 86311 () Reason For Exam fall, neck pain [...] Time: 11/03/2019 4:39 pm Signed by: MD MARINLELI WENDELL Transcribed Date and Time: 11/03/2019 4:33 [facility] Work Phone: [place] Incoming Radiology Results From [facility] - 11/03/2019 4:41 PM EST Patient Name: JAZMIN JOHNSON ---CT--- Exam Date/Time 11/03/2019 16:16:[address] Spine Cervical w/o Contrast Ordering Physician JACK BHATTI Accession Number [id number] CPT4 Codes 89297 () Reason For Exam fall, neck pain [...] CT Head WO ContrastOrdered B y: Jack Davy on 11-03-2019 Patient Name: JAZMIN JOHNSON ---CT--- Exam Date/Time 11/03/2019 16:16:[address] Head or Brain w/o Contrast Ordering Physician JACK BHATTI Accession Number [id number] CPT4 Codes 25846 () Reason For Exam fall, head injury, [...] Phone: [place] Incoming Radiology Results From [facility] - 11/03/2019 4:41 PM EST Patient Name: JAZMIN JOHNSON ---CT--- Exam Date/Time 11/03/2019 16:16:[address] Head or Brain w/o Contrast Ordering Physician JACK BHATTI Accession Number [id number] CPT4 Codes 58092 () Reason For Exam fall, head injury, [...] WENDELL Transcribed Date and Time: 11/03/2019 4:33 [employer] Work Phone: [phone] EthanolOrdered By: Jack roberson on 11-03-2019 Ethanol Lvl 0.372 g/dL Critically high 0 - 0.01 g/dL [facility] Work Phone: [phone] Comment on above: NOTE: This result is for medical treatment only. Analysis performed using non-forensic procedures. Interpretation and review of laboratory results Abnormal [facility] Work Phone: [phone] Hemogram (CBC) w/Auto DiffOr dered By: Jack Bhatti on 11-03-2019 Absolute Baso # 0.1 10*3/uL 0 - 0.2 10*3/uL [employer] Work Phone: [phone] Absolute Neut # 2.1 10*3/uL 1.8 - 7 10*3/uL [employer] Work Phone: Basophils/100 WBC (Bld) 1.4 % 0 - 2 % [facility] Work Phone: Eosinophils (Bld) [#/Vol] 0.0 10*3/uL 0 - 0.5 10*3/uL [facility] Work Phone: Eosinophils/100 WBC (Bld) 0.6 % Low 1 - 6 % [facility] Work Phone: Erythrocyte distribution width (RBC) [Ratio] 16.5 % High 11.5 - 14.5 % [facility] Work Phone: Granulocytes/100 WBC (Bld) 38.2 % Low 40 - 80 % [employer] Work Phone: 1 Hematocrit (Bld) [Volume fraction] 41.0 % 35 - 47 % [employer] Work Phone: 1 Hemoglobin (Bld) [Mass/Vol] 13.7 g/dL 11.7 - 16 g/dL [employer] Work Phone: 1 Interpretation and review of laboratory results Abnormal [employer] Work Phone: 1 Lymphocytes (Bld) [#/Vol] 2.7 10*3/uL 1 - 4.3 10*3/uL [employer] Work Phone: 1 Lymphocytes/100 WBC (Bld) 50.5 % High 20 - 40 % [employer] Work Phone: 1 MCH (RBC) [Entitic mass] 33.3 pg 26 - 34 pg [employer] Work Phone: 1 MCHC 33.4 % 32 - 36 % [employer] Work Phone: 1 MCV (RBC) [Entitic vol] 99.6 fL High 79 - 98 fL [employer] Work Phone: 1 Monocytes (Bld) [#/Vol] 0.5 10*3/uL 0 - 0.8 10*3/uL [employer] Work Phone: 1 Monocytes/100 WBC (Bld) 9.3 % 2 - 10 % [employer] Work Phone: 1 Platelet mean volume (Bld) [Entitic vol] 8.3 fL 7.4 - 10.4 fL [employer] Work Phone: 1) Platelets (Bld) [#/Vol] 238 10*3/uL 140 - 440 10*3/uL [employer] Work Phone: 1 RBC (Bld) [#/Vol] 4.11 10*6/uL 3.8 - 5.2 10*6/uL [employer] Work Phone: 1 WBC (Bld) [#/Vol] 5.4 10*3/uL 3.6 - 10.7 10*3/uL [employer] Work Phone: 1 Test Performed by [facility], [address] [place] [place] [address] [facility] Work Phone: [phone] Hepatic Function PanelOrdere d By: Jack Bhatti on 11-03-2019 Albumin [Mass/Vol] 4.0 g/dL 3.5 - 5 g/dL [facility] Work Phone: [phone] ALP [Catalytic activity/Vol] 55 U/L 38 - 126 U/L [facility] Work Phone: [phone] [Catalytic activity/Vol] 28 U/L 13 - 69 U/L [facility] Work Phone: [phone] [Catalytic activity/Vol] 39 U/L 15 - 46 U/L [facility] Work Phone: [phone] [Mass/Vol] 0.3 mg/dL 0.2 - 1.3 mg/dL [facility] Work Phone: [phone] Bilirubin.indirect [Mass/Vol] 0.0 mg/dL 0 - 0.3 mg/dL [facility] Work Phone: [phone] Protein [Mass/Vol] 7.0 g/dL 6.3 - 8.2 g/dL [facility] Work Phone: [phone] MagnesiumOrdered By: Jack pandya on 11-03-2019 Magnesium [Mass/Vol] 1.9 mg/dL 1.6 - 2.3 mg/dL [facility] Work Phone: [phone] No Panel InformationOrdered By: Jack Bhatti on 11-03-2019 Test Performed by [facility], [facility] [place] [address] [facility] Work Phone: [phone] Performed by [facility], [facility] [place] [address] [facility] Work Phone: [phone] Troponin [id number] By: Jack Bhatti on 11-03-2019 Troponin I.cardiac [Mass/Vol] ng/mL 0 - 0.034 ng/mL [facility] Work Phone: [phone] Comment on above: . Clinical Summary: HMSPatient IDon [id number] [facility] Work Phone: Office Visit: New - visi t with practice, Rm: 1on 05-14-2019 NEGATED: Highlighted rowTobacco smoking status NHIS current everyday smoker [facility] Work Phone: Glucose Meteron 09-04-2017 Glucose mass conc 73 mg/dL Normal 70-99 [facility] Comment on above: Result Comment: RN N OTIFIED Performed By: #### G LMET ####[facility] [facility] [place] [id number] Glucose mass conc 83 mg/dL Normal 70-99 [facility] Comment on above: Result Comment: RN N OTIFIED Performed By: #### G LMET ####[place] [address] Vital Signs Date Time Vital Sign Value Performing Clinician Facility 12-27-2022 11:02-0400 SaO2% (BldA) [Mass fraction] 97 % [facility] Comment on above: Order Comment: Speci men Type: ARTERIAL BLOOD SPECIMENOrdering Facility: [facility] Address: [address] [place] [address] Performed By: #### A LLBG ####[facility] LABORATORYCLIA [id number] [address] 12-26-2022 11:02-0400 SaO2% (BldA) [Mass fraction] 97 % [facility] Comment on above: Order Comment: Speci men Type: ARTERIAL BLOOD SPECIMENOrdering Facility: [facility] Address: [address] [place] [address] Performed By: #### A LLBG ####[facility] LABORATORYCLIA [id number] [address] 12-18-2022 08:00-0500 Body temperature 99.8 [degF] Dr. Khai Palacios Work Phone: [facility] 12-18-2022 08:00-0500 Diastolic blood pressure 71 mm[Hg] Dr. Khai Palacios Work Phone: [facility] 12-18-2022 08:00-0500 Heart rate 99 /min Dr. Khai Palacios Work Phone: [facility] 12-18-2022 08:00-0500 Inhaled oxygen concentration 30 % Dr. Khai Palacios Work Phone: [facility] 12-18-2022 08:00-0500 Respiratory rate 18 /min Dr. Khai Palacios Work Phone: [facility] 12-18-2022 08:00-0500 SaO2% (BldA) [Mass fraction] 97 % Dr. Khai Palacios Work Phone: [facility] 12-18-2022 08:00-0500 Systolic blood pressure 144 mm[Hg] Dr. Khai Palacios Work Phone: [facility] 12-18-2022 03:57-0500 Body mass index (BMI) [Ratio] 28.5 kg/m2 Dr. Khai Palacios Work Phone: [facility] 12-18-2022 03:57-0500 Body weight 73.[address] Khai Palacios Work Phone: [facility] 12-17-2022 10:09-0500 Body height 160.[address] Khai Palacios Work Phone: [facility] 12-17-2022 07:00-0500 Inhaled oxygen flow rate 30 L/min Dr. Khai Palacios Work Phone: [facility] 12-16-2022 18:00-0500 Diastolic blood pressure 106 mm[Hg] [facility] 12-16-2022 18:00-0500 Heart rate 101 /min [facility] 12-16-2022 18:00-0500 Inhaled oxygen flow rate 2 L/min [facility] 12-16-2022 18:00-0500 Respiratory rate 22 /min [facility] 12-16-2022 18:00-0500 SaO2% (BldA) [Mass fraction] 98 % [facility] 12-16-2022 18:00-0500 Systolic blood pressure 169 mm[Hg] [facility] 12-16-2022 17:50-0500 Body temperature 97.8 [degF] [facility] 12-16-2022 15:45-0500 Body height 160.02 cm [facility] 12-16-2022 15:45-0500 Body mass index (BMI) [Ratio] 27.9 kg/m2 [facility] 12-16-2022 15:45-0500 Body weight 71.5 kg [facility] 09-14-2022 15:27-0500 Body temperature 97.2 [degF] [facility] 09-14-2022 15:27-0500 Diastolic blood pressure 87 mm[Hg] [facility] 09-14-2022 15:27-0500 Heart rate 89 /min [facility] 09-14-2022 15:27-0500 Respiratory rate 13 /min [facility] 09-14-2022 15:27-0500 SaO2% (BldA) [Mass fraction] 95 % [facility] 09-14-2022 15:27-0500 Systolic blood pressure 111 mm[Hg] [facility] 09-14-2022 13:48-0500 Body height 160.02 cm [facility] Work Phone: 09-14-2022 13:48-0500 Body mass index (BMI) [Ratio] 28.5 kg/m2 [facility] 09-14-2022 13:48-0500 Body weight 73.1 kg [facility] 04-27-2022 11:37-0400 Diastolic blood pressure 90 mm[Hg] Dr. Khai Palacios Work Phone: [facility] Work Phone: 04-27-2022 11:37-0400 Heart rate 98 /min Dr. Khai Palacios Work Phone: [facility] Work Phone: 04-27-2022 11:37-0400 Respiratory rate 18 /min Dr. Khai Palacios Work Phone: [facility] Work Phone: 04-27-2022 11:37-0400 SaO2% (BldA) [Mass fraction] 96 % Dr. Khai Palacios Work Phone: [facility] Work Phone: 04-27-2022 11:37-0400 Systolic blood pressure 145 mm[Hg] Dr. Khai Palacios Work Phone: [facility] Work Phone: 04-27-2022 09:38-0400 Body height 170.[address] Khai Palacios Work Phone: [facility] Work Phone: 04-27-2022 09:38-0400 Body mass index (BMI) [Ratio] 24.7 kg/m2 Dr. Khai Palacios Work Phone: [facility] Work Phone: 04-27-2022 09:38-0400 Body temperature 97.2 [degF] Dr. Khai Palacios Work Phone: [facility] Work Phone: 04-27-2022 09:38-0400 Body weight 71.[address] Khai Palacios Work Phone: [facility] Work Phone: 02-06-2022 14:49-0400 Body temperature 97.9 [degF] Dr. Khai Palacios Work Phone: [facility] Work Phone: 02-06-2022 14:49-0400 Diastolic blood pressure 82 mm[Hg] Dr. Khai Palacios Work Phone: [facility] Work Phone: 02-06-2022 14:49-0400 Heart rate 75 /min Dr. Khai Palacios Work Phone: [facility] Work Phone: 02-06-2022 14:49-0400 Respiratory rate 16 /min Dr. Khai Palacios Work Phone: [facility] Work Phone: 02-06-2022 14:49-0400 SaO2% (BldA) [Mass fraction] 97 % Dr. Khai Palacios Work Phone: [facility] Work Phone: 02-06-2022 14:49-0400 Systolic blood pressure 127 mm[Hg] Dr. Khai Palacios Work Phone: [facility] Work Phone: 02-05-2022 16:45-0400 Body height 162.[address] Khai Palacios Work Phone: [facility] Work Phone: 02-05-2022 16:45-0400 Body mass index (BMI) [Ratio] 23.5 kg/m2 Dr. Khai Palacios Work Phone: [facility] Work Phone: 02-05-2022 16:45-0400 Body weight 62.[address] Khai Palacios Work Phone: [facility] Work Phone: 03-17-2021 10:50-0400 Respiratory rate 16 /min Shin Bloom DO Work Phone: [facility] 03-17-2021 07:26-0400 Body temperature 97.59 [degF] Shin Bloom DO Work Phone: [facility] 03-17-2021 07:26-0400 Diastolic blood pressure 74 mm[Hg] Shin Bloom DO Work Phone: [facility] 03-17-2021 07:26-0400 Heart rate 90 /min Shin Bloom DO Work Phone: [facility] 03-17-2021 07:26-0400 SaO2% (BldA) [Mass fraction] 93 % Shin Bloom DO Work Phone: [facility] 03-17-2021 07:26-0400 Systolic blood pressure 108 mm[Hg] Shin Bloom DO Work Phone: [facility] 03-11-2021 02:25-0400 Body height 167.6 cm Shin Bloom DO Work Phone: [facility] 03-11-2021 02:25-0400 Body mass index (BMI) [Ratio] 20.98 kg/m2 Shin Bloom DO Work Phone: [facility] 03-11-2021 02:25-0400 Body weight 58.97 kg Shin Bloom DO Work Phone: [facility] 02-18-2021 11:03-0400 Body temperature 98.2 [degF] Arpit Buchanan MD Work Phone: [employer] Work Phone: 02-18-2021 11:03-0400 Diastolic blood pressure [...] 24.41 kg/m2 [facility] Work Phone: 02-15-2021 11:36-0400 Body weight 56.7 kg [facility] Work Phone: 01-15-2021 08:30-0400 Body Temperature 96.1 [degF] [facility] Work Phone: 01-15-2021 08:30-0400 BP Diastolic 85 mm[Hg] [facility] Work Phone: 01-15-2021 08:30-0400 BP Systolic 132 mm[Hg] [facility] Work Phone: 01-15-2021 08:30-0400 Pulse Oximetry 97 % [facility] Work Phone: 01-15-2021 08:30-0400 Respiratory Rate 16 /min [facility] Work Phone: 01-14-2021 20:45-0400 Pulse (Heart Rate) 99 /min [facility] Work Phone: 01-14-2021 04:00-0400 BMI (Body Mass Index) 22.78 kg/m2 [facility] Work Phone: 01-14-2021 04:00-0400 Body weight 60.2 kg [facility] Work Phone: 01-13-2021 21:00-0400 Height 162.6 cm [facility] Work Phone: 12-29-2020 07:39-0400 BP Diastolic 58 mm[Hg] Dario Tilley [employer] Work Phone: 12-29-2020 07:39-0400 BP Systolic 113 mm[Hg] Dario Tilley WILLI Work Phone: 12-29-2020 07:39-0400 Pulse (Heart Rate) 118 /min Dario MÁRQUEZ Work Phone: 12-29-2020 07:31-0400 Body Temperature 98.2 [degF] Dario MÁRQUEZ Work Phone: 12-29-2020 07:31-0400 Pulse Oximetry 96 % Dario MÁRQUEZ Work Phone: 12-29-2020 07:31-0400 Respiratory Rate 18 /min Dario MÁRQUEZ Work Phone: 12-12-2020 12:38-0500 BMI (Body Mass Index) 21.97 kg/m2 Dario MÁRQUEZ Work Phone: 12-12-2020 12:38-0500 Body weight 58.06 kg Dario MÁRQUEZ Work Phone: 12-12-2020 12:38-0500 Height 162.6 cm Dario MÁRQUEZ Work Phone: 10-24-2020 11:53-0500 Body Temperature 98.01 [degF] [facility] 10-24-2020 11:53-0500 BP Diastolic 79 mm[Hg] Jack Pressly [facility] 10-24-2020 11:53-0500 BP Systolic 121 mm[Hg] [facility] 10-24-2020 11:53-0500 Pulse (Heart Rate) 93 /min Jack [employer] [facility] 10-24-2020 11:53-0500 Pulse Oximetry 95 % [facility] [place] 10-24-2020 11:53-0500 Respiratory Rate 16 /min Jack Pressly [facility] 10-21-2020 06:00-0500 BMI (Body Mass Index) 22.23 kg/m2 Jack Bhatti [employer] [facility] [place] 10-21-2020 06:00-0500 Body weight 58.74 kg Jack [employer] [facility] [place] 10-20-2020 09:20-0500 Height 162.6 cm Jack Bhatti [place], [place] 06-08-2020 16:17-0400 Body weight 59.88 kg Silvana Somers [facility] 06-08-2020 16:17-0400 Height 162.6 cm Silvana Somers [facility] 11-03-2019 15:22-0500 Body height 160 cm Jack Bhatti MD Work Phone: [facility] Work Phone: 11-03-2019 15:22-0500 Body mass index [...] Work Phone: [facility] Work Phone: NEGATED: Highlighted [id number] 14:00-0400 BMI (Body Mass Index) 24.85 kg/m2 Vanesa Maribel ACUTE CARE NURSING ASSISTANT [facility] [place] [facility] Work Phone: NEGATED: Highlighted [id number] 14:00-0400 Body weight 64.41 kg Vanesa Maribel ACUTE CARE NURSING ASSISTANT [facility] Work Phone: NEGATED: Highlighted [id number] 14:00-0400 Body weight 65 kg Vanesa Maribel ACUTE CARE NURSING ASSISTANT [facility] [place] [facility] Work Phone: NEGATED: Highlighted [id number] 14:00-0400 BP Diastolic 74 mm[Hg] Vanesa Maribel ACUTE CARE NURSING ASSISTANT [facility] Work Phone: NEGATED: Highlighted [id number] 14:00-0400 BP Systolic 123 mm[Hg] Vanesa Maribel ACUTE CARE NURSING ASSISTANT [facility] Work Phone: NEGATED: Highlighted [id number] 14:00-0400 Heart rate 2+ Vanesa Maribel ACUTE CARE NURSING ASSISTANT [facility] Work Phone: NEGATED: Highlighted [id number] 14:00-0400 Heart rate Vanesa Maribel ACUTE CARE NURSING ASSISTANT [facility] Work Phone: NEGATED: Highlighted [id number] 14:00-0400 Height 161.29 cm Vanesa Maribel ACUTE CARE NURSING ASSISTANT [facility] Work Phone: NEGATED: Highlighted [id number] 14:00-0400 Height 161 cm Vanesa Maribel ACUTE CARE NURSING ASSISTANT [facility] Work Phone: NEGATED: Highlighted [id number] 14:00-0400 Pulse (Heart Rate) 116 /min Vanesa Maribel ACUTE CARE NURSING ASSISTANT [facility] [place] [facility] Work Phone: Encounters Encounter Date Encounter Type Care Provider Facility Start: 05-05-2025 End: 05-05-[address] Khai Palacios MD Work Phone: -[facility] Start: 05-05-2025 End: 05-05-[address] Faina Tsai MD -[facility] Work Phone: Start: 05-05-2025 End: 05-05-2025 ambulatory Kneeland Eulalio PHAM Facility:[facility] Start: 03-22-[address] [facility] Start: 03-22-[address] Faina rush MD -[facility] Work Phone: Start: 12-01-2024 ambulatory Khai Palacios Facility:[facility] Start: 08-02-2023 End: 08-02-2023 AMB External Visit KENZIE FERRER MD [facility] Start: 05-03-2023 End: 05-03-2023 ambulatory [facility] Work Phone: Start: 05-03-2023 End: 05-03-2023 Departed Referred [facility] Start: 03-18-2023 End: 03-18-2023 Departed Referred [facility] Start: 02-25-2023 End: 02-25-2023 Departed Referred [facility] Start: 02-14-2023 End: 02-14-[address] Khai Palacios Work Phone: [facility] Work Phone: Start: 02-14-2023 End: 02-14-[address] Khai Palacios Work Phone: [facility] Start: 01-23-[address] Khai palacios Work Phone: [facility] Start: 01-16-[address] Khai palacios Work Phone: [facility] Start: 01-10-[address] Khai palacios Work Phone: [facility] Start: 12-18-2022 Non-patient / Non-visit Dr. Khai Palacios Work Phone: [facility] Start: 12-18-2022 ambulatory Germaine RESENDEZ RN.[facility] Work Phone: Critical Care Start: 12-18-2022 End: 01-09-2023 Evaluation and management of inpatient DHIMANT ROGELIO Facility:[facility] Start: 12-17-2022 Non-patient / Non-visit Dr. Khai Palacios Work Phone: [facility] Start: 12-17-2022 Non-patient / Non-visit Dr. Khai Palacios Work Phone: [facility] Start: 12-17-2022 Non-patient / Non-visit Dr. Khai Palacios Work Phone: [facility] Start: 12-16-2022 End: 12-16-2022 Non-patient / Non-visit Dr. Khai Palacios Work Phone: [facility] Start: 12-16-2022 End: 12-18-2022 Evaluation and management of inpatient [facility] Start: 12-16-2022 Non-patient / Non-visit Dr. Khai Palacios Work Phone: [facility] Start: 12-12-2022 End: 12-12-[address] Khai Palacios Work Phone: [facility] Work Phone: Start: 12-12-2022 End: 12-12-2022 Patient encounter procedure [facility]-Laboratory, Phy Office 3rd Flr Start: 09-19-2022 Telephone encounter Jw fleming MD Work Phone: Neurology Comment on above: Appointment Start: 09-14-2022 End: 09-27-2022 Evaluation and management of inpatient CHELO DANIELS Facility:[facility] Start: 09-14-2022 End: 09-14-2022 Emergency department patient visit [facility] Start: 04-27-2022 End: 04-27-2022 Emergency department patient visit Dr. Khai Palacios Work Phone: [facility] Start: 02-06-2022 Non-patient / Non-visit Dr. Khai Palacios Work Phone: [facility] Start: 02-05-2022 End: 02-06-2022 Evaluation and management of inpatient Dr. [facility] Start: 03-11-2021 End: 03-17-2021 [facility] Start: 03-11-2021 End: 03-17-2021 Emergency department patient visit Shin Bloom DO Work Phone: [facility] 3 Start: 02-15-2021 End: 02-18-2021 Emergency department patient visit Arpit Buchanan MD Work Phone: [facility] 2E TELEMETRY Comment on above: Altered mental statu s, unspecified altered mental status type (Primary Dx) Start: 01-27-2021 End: 01-28-2021 ambulatory UNKNOWN PROVIDER [facility] Start: 01-23-2021 End: 01-30-2021 Evaluation and management of inpatient [place] Facility:[facility] Start: 01-13-2021 End: 01-15-2021 Evaluation and management of inpatient FRANK PALACIOS [facility] Start: 01-13-2021 End: 01-15-2021 Evaluation and management of inpatient Major Ricketts Work Phone: [facility] 2C Ortho/Med Surg Comment on above: Bilateral subdural h ematomas (HCC) (Primary Dx); Acute alcoholic intoxication with complication (HCC); Laceration of forehead, initial encounter Start: 12-12-2020 End: 12-29-2020 Evaluation and management of inpatient Dario Tilley Work Phone: [facility] 3W TELEMETRY Comment on above: Altered mental statu s, unspecified altered mental status type (Primary Dx); Brain mass; Hyponatremia Start: 10-19-2020 End: 10-24-2020 Evaluation and management of inpatient Jack Bhatti Work Phone: [facility] 3W TELEMETRY Comment on above: Intracranial bleed ( HCC) (Primary Dx); Closed head injury, initial encounter; Acute alcoholic intoxication without complication (HCC) Start: 06-08-2020 End: 06-08-2020 Patient encounter procedure Silvana Somers Work Phone: [employer] Comment on above: Gynecologic exam nor mal (Primary Dx); Cervical cancer screening; Breast screening; Screening for osteoporosis; Menopause; Vulvar lesion; Fecal occult blood test positive; Cystocele, midline Start: 06-08-2020 End: 06-08-2020 Letter encounter Silvana Somers Work Phone: [employer] Start: 11-03-2019 End: 11-03-2019 Emergency department patient visit Jack Bhatti MD Work Phone: [facility] Emergency Dept Comment on above: Acute alcoholic into xication without complication (HCC) (Primary Dx); Injury of head, initial encounter; Alcohol abuse Start: 05-14-2019 End: 05-15-2019 Patient encounter procedure Joe Song PA-C Work Phone: [facility] Work Phone: Start: 11-18-2017 [facility] Start: 09-04-2017 End: 09-04-2017 Emergency department patient visit JACK NATHAN Facility:[facility] Procedures Date Procedure Procedure Detail Performing Clinician Start: 05-05-2025 Vitamin D, 25-hydrox y measurement Dr. Khai Palacios MD Work Phone: Comment on above: Vitamin D StatusDefi ciency: <20 ng/mL (50nmol/L)Insufficiency: 20-30 ng/mL (50-75 nmol/L)Sufficiency: 30-100 ng/mL (75-250 nmol/L)Toxicity: >100 ng/mL (>250 nmol/L) Start: 03-22-2025 Vitamin D, 25-hydrox y measurement Dr. Khai Palacios MD Work Phone: Comment on above: Vitamin D StatusDefi ciency: <20 ng/mL (50nmol/L)Insufficiency: 20-30 ng/mL (50-75 nmol/L)Sufficiency: 30-100 ng/mL (75-250 nmol/L)Toxicity: >100 ng/mL (>250 nmol/L) Start: 02-25-2023 Urine culture Start: 12-20-2022 Echocardiography LINNEA MERCADO Start: 12-18-2022 Antibody screen JENNYFER MERCADO Comment on above: Order Comment: Speci men Type: BLOOD SPECIMENOrdering Facility: [facility] Address: [address] [place] [address] Performed By: #### T SCR, DAGT ####[facility] BLOOD BANKCLIA [id number] [address] Start: 12-17-2022 CT of head without [...] Comment: Speci men Type: BLOOD SPECIMENOrdering Facility: [facility] Address: [address] [place] [address] Performed By: #### T SCR ####[facility] BLOOD BANKCLIA [id number] [place] [address] [place] Start: 09-14-2022 CT cervical spine wi thout [...] ast 12 lds trcg only w/o i&r Noarh Basurto DO Work Phone: Start: 03-11-2021 SARS-CoV-2 [...] Phone: Start: 03-11-2021 Blood ethanol measurement Beatriz LEI-C Work Phone: Start: 03-11-2021 VIVAS TOP Shin Mayorga don Bloom DO Work Phone: Start: 03-11-2021 LIGHT BLUE TOP Shin Hall Wolf DO Work Phone: Start: 03-11-2021 LIGHT GREEN TOP Shin Hall Wolf DO Work Phone: Start: 03-11-2021 [facility] DRUG SCREEN, BLOOD Sheilabriana Freedman DO Work Phone: Start: 03-11-2021 PINK TOP Shin Mayorga maritzarory Wolf DO Work Phone: Start: 03-11-2021 RAINBOW [...] W/ REFLEX TO MG FOR LOW K Sada Castillo MD Work Phone: Start: 02-17-2021 Mri brain brain stem w/o contrast material Sada Castillo MD Work Phone: Start: 02-17-2021 BASIC METABOLIC PANE L W/ REFLEX TO MG FOR LOW K Sada Castillo MD Work Phone: Start: 02-17-2021 Blood count complete automated Sada Castillo MD Work Phone: Start: 02-16-2021 Basic metabolic pane l calcium total Frankie Sorensen MD Work Phone: Start: 02-16-2021 Lipid panel Frankieestevan contreras MD Work Phone: Start: 02-16-2021 Drug screen class list a Sada Castillo MD Work Phone: Start: 02-16-2021 Urnls dip stick/tabl et rgnt auto w/o microscopy Sada Castillo MD Work Phone: Start: 02-16-2021 Hemoglobin glycosyla pepe a1c Sada Castillo MD Work Phone: Start: 02-15-2021 Assay [...] Patti Leah Start: 01-13-2021 COVID-19, RAPID Major N Harwani Work Phone: Start: 01-13-2021 Ct cervical spine w/ o contrast material Major Ricketts Work Phone: Start: 01-13-2021 Assay of ethanol Major Ricketts Work Phone: Start: 01-13-2021 BASIC METABOLIC PANE L W/ REFLEX TO MG FOR LOW K Major Ricketts Work Phone: Start: 01-13-2021 Blood count complete auto&auto difrntl wbc Maojr Ricketts Work Phone: Start: 01-13-2021 Hepatic function [...] Deng Work Phone: Start: 12-20-2020 COVID-19 Leland aptel Work Phone: Start: 12-19-2020 Sodium serum plasma or whole blood Endy Hang Work Phone: Start: 03-07-2021 Basic metabolic pane l calcium total Rah Johnathan Work Phone: Start: 12-17-2020 Basic metabolic pane l calcium total Endy Mauricio Work Phone: Start: 12-16-2020 Assay of magnesium Maxine Mauricio Work Phone: Start: 12-16-2020 Assay of osmolality blood Endykedar Mauricio Work Phone: Start: 12-16-2020 Basic metabolic pane l calcium total Endy Mauricio Work Phone: Start: 12-15-2020 Basic metabolic pane l calcium total Chirag Q Karla Work Phone: Start: 12-15-2020 Assay of osmolality urine Endy Mauricio Work Phone: Start: 12-15-2020 Assay of urine sodium V inh Q Karla Work Phone: Start: 12-15-2020 Assay of magnesium Maxine Mauricio Work Phone: Start: 12-15-2020 Basic metabolic pane l calcium total Endy Mauricio Work Phone: Start: 12-14-2020 Acute hepatitis panel V jorge Mauricio Work Phone: Start: 12-14-2020 Assay of folic acid serum Endy Hang Work Phone: Start: 12-14-2020 Assay of magnesium Maxine Mauricio Work Phone: Start: 12-14-2020 Blood count complete auto&auto difrntl wbc Endy Hang Work Phone: Start: 12-14-2020 [facility]o lic [facility] Work Phone: Start: 12-13-2020 Mri brain brain [...] stick/tabl et rgnt auto w/o microscopy Alejandro Katievinh Work Phone: Start: 10-20-2020 Assay of magnesium [...] Start: 10-19-2020 Ct thorax w/contrast material Jack Bhatti Work Phone: Start: 10-19-2020 Assay of ammonia Lein dra Aguilar Work Phone: Start: 10-19-2020 Assay of ethanol Lein dra Aguilar Work Phone: Start: 10-19-2020 Assay [...] 05-14-2019 End: 05-15-2019 Documentation of current medications Joenatasha Song PA-C Work Phone: Start: 05-14-2019 End: 05-15-2019 Pain assessment documented as positive - no follow-up/reason not given Joenatasha Song PA-C Work Phone: Start: 05-14-2019 End: 05-14-2019 POST-OP SHOE SQR TOE (BREG) Joevictor manuel Song PA-C Work Phone: Start: 05-14-2019 End: 05-15-2019 Pt tobacco screen rcvd tlk Joenatasha Song PA-C Work Phone: Start: 05-14-2019 End: 05-14-2019 Radex foot complete minimum 3 views Joe Song PA-C Work Phone: Start: 05-14-2019 End: 05-14-2019 Radiologic examination ankle 2 views Joenatasha LEI-C Work Phone: Bacteria identified in Blood by [...] Author Start: 12-18-2025 DIABETES SCREEN DIABETES SCREEN [facility] Start: 09-26-2025 DIABETES SCREEN DIABETES SCREEN [facility] Start: 12-22-2022 [facility] Start: 12-21-2022 [facility] Start: 12-20-2022 [facility] Start: 12-19-2022 [facility] Start: 12-18-2022 Patient discharge [facility] Start: 12-17-2022 Procedure [facility] Start: 12-17-2022 Consultation [facility] Start: 12-17-2022 Consultation [facility] Start: 12-16-2022 [facility] Start: 12-16-2022 Referral to service [facility] Start: 12-16-2022 Airway suction technique [facility] Start: 12-16-2022 Following clinical pathway protocol [facility] Start: 12-16-2022 Application of intermittent pneumatic compression device [facility] Start: 12-16-2022 Assessment of risk of venous thromboembolism [facility] Start: 12-16-2022 Care regimes management [facility] Start: 12-16-2022 Consultation for treatment [facility] Start: 12-16-2022 Continuous pulse oximetry [facility] Start: 12-16-2022 Documentation procedure [facility] Start: 12-16-2022 Insertion of catheter into peripheral vein [facility] Start: 12-16-2022 Measuring intake and output [facility] Start: 12-16-2022 Oxygen therapy [facility] Start: 12-16-2022 Patient referral to dietitian [facility] Start: 12-16-2022 Providing care according to standard [facility] Start: 12-16-2022 Referral to occupational therapist [facility] Start: 12-16-2022 Referral to service [facility] Start: 12-16-2022 Removal of urinary catheter [facility] Start: 12-16-2022 Tobacco use cessation education [facility] Start: 12-16-2022 Vital signs measurements [facility] Start: 12-16-2022 [facility] Start: 12-16-2022 Creatine kinase [Enzymatic activity/volume] in Serum or Plasma [facility] Start: 12-16-2022 Triglycerides measurement [facility] Start: 12-16-2022 Electrocardiographic procedure [facility] Start: 12-16-2022 Electroencephalogram [facility] Start: 12-16-2022 Plain chest X-ray Chest 1 View (Portable) [facility] Start: 12-16-2022 XR Chest Single view [facility] Start: 12-16-2022 Verification routine [facility] Start: 12-16-2022 Admission procedure [facility] Start: 12-16-2022 End: 12-16-2022 Blood culture [facility] Start: 12-16-2022 End: 12-16-2022 [facility] Start: 12-16-2022 Inhalation therapy procedure [facility] Start: 12-16-2022 Patient referral to dietitian [facility] Start: 12-16-2022 [facility] Start: 10-14-2022 ADVANCE DIRECTIVE DISCUSSION ADVANCE DIRECTIVE DISCUSSION [facility] Start: 10-14-2022 DEPRESSION ASSESSMENT DEPRESSION ASSESSMENT [facility] Start: 09-14-2022 Simple repair f/e/e/n/l/m 2.5cm/< RPR F/E/E/N/L/M 2.5 CM/< [facility] Start: 06-14-2022 Influenza vaccination INFLUENZA (#1) [facility] Start: 02-06-2022 Patient discharge [facility] Work Phone: Start: 02-05-2022 Aspiration precautions [facility] Work Phone: Start: 02-05-2022 Assessment of risk of venous thromboembolism [facility] Work Phone: Start: 02-05-2022 Fall prevention [facility] Work Phone: Start: 02-05-2022 Inhalation therapy procedure [facility] Work Phone: Start: 02-05-2022 Introduction of urinary catheter [facility] Work Phone: Start: 02-05-2022 Notification of physician [facility] Work Phone: Start: 02-05-2022 Oxygen therapy [facility] Work Phone: Start: 02-05-2022 Referral to service [facility] Work Phone: Start: 02-05-2022 Vital signs measurements [facility] Work Phone: Start: 02-05-2022 [facility] Work Phone: Start: 02-05-2022 Following clinical pathway protocol [facility] Work Phone: Start: 02-05-2022 Admission procedure [facility] Work Phone: Start: 06-14-2021 Influenza vaccination [facility] [employer] Phone: Start: 06-08-2021 Colonoscopy COLONOSCOPY [facility] Start: 06-08-2021 COLORECTAL CANCER SCREENING COLORECTAL CANCER SCREENING [facility] Start: 06-08-2021 Tuberculosis screening COLORECTAL CANCER SCREENING,SEE MODIFIER [facility] Start: 02-27-2021 End: 02-27-2021 Patient encounter procedure 02/27/2021 Office Visit Neurosurgery Kush Al MD [address] [place] [id number] [facility] Start: 01-28-2021 End: 01-14-2022 CT HEAD WO CONTRAST CT HEAD WO CONTRAST Imaging Routine Bilateral subdural hematomas (HCC) Expected: 01/28/2021, Expires: 01/14/2022 [employer] Phone: Comment on above: Expected: 01/28/2021, Expires: 2 Start: 11-13-2020 End: 10-23-2021 CT Head WO Contrast CT Head WO Contrast Imaging Routine Intracranial bleed (HCC) Expected: 11/13/2020, Expires: 10/23/2021 [facility] [place] Comment on above: Expected: 11/13/2020, Expires: 2 Start: 06-14-2020 Influenza vaccination [facility] Start: 11-14-2019 Annual Wellness Visit (AWV) Annual Wellness Visit (AWV) [facility] Start: 10-05-2019 DIABETES SCREEN DIABETES SCREEN [facility] Start: 06-14-2019 Influenza vaccination Flu vaccine (#1) [facility] [employer] Phone: Start: 05-25-2019 End: 05-25-2019 Appointment Appointment [facility] Work Phone: Start: 03-10-2017 FECAL OCCULT BLOOD FECAL OCCULT BLOOD [facility] Start: 2016 ADVANCE DIRECTIVE DISCUSSION ADVANCE DIRECTIVE DISCUSSION [facility] Start: 2016 BONE DENSITY BONE DENSITY [facility] Start: 2016 DEXA (modify frequency per FRAX score) DEXA (modify frequency per FRAX score) [facility] Work Phone: Start: 2016 Fall risk assessment Falls Risk Assessment [facility] Start: 2016 Pneumococcal 65+ years Vaccine (1 of 1 - PPSV23) Pneumococcal 65+ years Vaccine (1 of 1 - PPSV23) [facility] Work Phone: Start: 2016 PNEUMOVAX AGE 65 AND OVER WITH 5YR LOOKBACK (#1) PNEUMOVAX AGE 65 AND OVER WITH 5YR LOOKBACK (#1) [facility] Start: 2006 Screening for osteoporosis DEXA (modify frequency per FRAX score) [place] [employer] Start: 2001 Administration of herpes zoster vaccine Zoster Vaccines (1 of 2) [facility] Start: 2001 Breast cancer screen Breast cancer screen [facility] Work Phone: Start: 2001 Colon cancer screen colonoscopy Colon cancer screen colonoscopy [facility] Work Phone: Start: 2001 Screening for malignant neoplasm of breast Breast cancer screen [place], [place] Start: 2001 Screening for malignant neoplasm of colon [place], [place] Start: 2001 Shingles Vaccine (1 of 2) Shingles Vaccine (1 of 2) [facility] Work Phone: Start: 2001 SHINGRIX VACCINE (1 of 2) SHINGRIX VACCINE (1 of 2) [facility] Start: 1996 COLOGUARD (FIT-DNA) COLOGUARD (FIT-DNA) [facility] Start: [address] COLONOGRAPHY [facility] Start: 1996 LIPID SCREEN LIPID SCREEN [facility] Start: 1996 SIGMOIDOSCOPY SIGMOIDOSCOPY [facility] Start: 1991 Lipid screen Lipid screen [facility] Work Phone: Start: 1991 Mammography MAMMOGRAM [facility] Start: 1991 Screening mammography Mammogram [facility] Start: 1970 DTaP/Tdap/Td vaccine (1 - Tdap) DTaP/Tdap/Td vaccine (1 - Tdap) [place], [place] Start: 1970 Urine microalbumin profile DTAP,TDAP,TD (1 - Tdap) [facility] Start: 1969 ANNUAL PCP TEAM CHRONIC DISEASE VISIT ANNUAL PCP TEAM CHRONIC DISEASE VISIT [facility] Start: 1969 HEPATITIS C SCREENING HEPATITIS C SCREENING [facility] Start: 1969 Hepatitis C screening Hepatitis C Screening [facility] Start: 1967 COVID-19 Vaccine (1) COVID-19 Vaccine (1) [facility] Work Phone: Start: 1963 COVID-19 Vaccine (1) COVID-19 Vaccine (1) [facility] Start: 1963 Depression screening using PHQ-9 (Patient Health Questionnaire 9) score Depression Screening (PHQ9) [facility] Start: 1962 DTaP/Tdap/Td vaccine (1 - Tdap) DTaP/Tdap/Td vaccine (1 - Tdap) [facility] Work Phone: Start: 1961 Lipid panel Lipid screen [place], [place] Start: 1957 Pneumococcal Vaccine: Age 65+ (1 of 2 - PPSV23) Pneumococcal Vaccine: Age 65+ (1 of 2 - PPSV23) [facility] Start: 1957 PNEUMOCOCCAL: 65+ (1 - PCV) PNEUMOCOCCAL: 65+ (1 - PCV) [facility] Start: 1954 History and physical examination, annual for health maintenance Wellness Visit [facility] Start: 1951 COVID-19 VACCINE (#1) COVID-19 VACCINE (#1) [facility] Start: 1951 Hepatitis C screen Hepatitis C screen [facility] Work Phone: Start: 1951 Hepatitis C screening Hepatitis C screen [place], [place] Start: 1951 Screening for osteoporosis Dexa Scan [facility] Start: 1951 Tetanus vaccination Tetanus: Every 10yrs [facility] Alanine aminotransfe rase [Enzymatic activity/volume] in Serum or Plasma [facility] Alanine aminotransfe rase [Enzymatic activity/volume] in Serum or Plasma [facility] Alanine aminotransfe rase [Enzymatic activity/volume] in Serum or Plasma [facility] Alanine aminotransfe rase [Enzymatic activity/volume] in Serum or Plasma [facility] Albumin [Mass/volume ] in Serum or Plasma [facility] Albumin [Mass/volume ] in Serum or Plasma [facility] Albumin [Mass/volume ] in Serum or Plasma [facility] Albumin [Mass/volume ] in Serum or Plasma [facility] Alkaline phosphatase [Enzymatic activity/volume] in Serum or Plasma [facility] Alkaline phosphatase [Enzymatic activity/volume] in Serum or Plasma [facility] Alkaline phosphatase [Enzymatic activity/volume] in Serum or Plasma [facility] Alkaline phosphatase [Enzymatic activity/volume] in Serum or Plasma [facility] Anion gap measurement [facility] Anion gap measurement [facility] Anion gap measurement [facility] Anion gap measurement [facility] Aspartate aminotrans ferase [Enzymatic activity/volume] in Serum or Plasma [facility] Aspartate aminotrans ferase [Enzymatic activity/volume] in Serum or Plasma [facility] Aspartate aminotrans ferase [Enzymatic activity/volume] in Serum or Plasma [facility] Aspartate aminotrans ferase [Enzymatic activity/volume] in Serum or Plasma [facility] Bacteria identified in Blood by Culture Blood Culture [facility] Bacteria identified in Blood by Culture Blood Culture [facility] Bacteria identified in Urine by Culture Urine Culture [facility] Basic metabolic 2000 panel Basic Metabolic Panel Lab Routine Daily until discontinued starting 10/23/2020, 2 completed [place], [place] Comment on above: Daily until discontinued starting 2020, 2 completed Bilirubin, total measurement [facility] Bilirubin, total measurement [facility] Bilirubin, total measurement [facility] Bilirubin, total measurement [facility] BUN/Creatinine ratio [facility] BUN/Creatinine ratio [facility] BUN/Creatinine ratio [facility] BUN/Creatinine ratio [facility] Calcium [Mass/volume ] in Serum or Plasma [facility] Calcium [Mass/volume ] in Serum or Plasma [facility] Calcium [Mass/volume ] in Serum or Plasma [facility] Calcium [Mass/volume ] in Serum or Plasma [facility] Carbon dioxide, tota l [Moles/volume] in Serum or Plasma [facility] Carbon dioxide, tota l [Moles/volume] in Serum or Plasma [facility] Carbon dioxide, tota l [Moles/volume] in Serum or Plasma [facility] Carbon dioxide, tota l [Moles/volume] in Serum or Plasma [facility] Chloride [Moles/volu me] in Serum or Plasma [facility] Chloride [Moles/volu me] in Serum or Plasma [facility] Chloride [Moles/volu me] in Serum or Plasma [facility] Chloride [Moles/volu me] in Serum or Plasma [facility] Creatinine [Moles/vo lume] in Serum or Plasma [facility] Creatinine [Moles/vo lume] in Serum or Plasma [facility] Creatinine [Moles/vo lume] in Serum or Plasma [facility] Creatinine [Moles/vo lume] in Serum or Plasma [facility] End: 07-09-2021 Dxa bone density study 1/> sites axial skel DXA-AXIAL SKELETON Radiology Routine Screening for osteoporosis Menopause 1 Occurrences starting 06/08/2020 until 07/09/2021 [facility] Comment on above: 1 Occurrences starting 06/08/2020 until 07/09/2021 EKG 12 Lead - Chest Pain EKG 12 Lead - Chest Pain ECG STAT 11/03/2019 3:29 PM [facility] Work Phone: Glucose [Mass/volume ] in Serum or Plasma [facility] Glucose [Mass/volume ] in Serum or Plasma [facility] Glucose [Mass/volume ] in Serum or Plasma [facility] Glucose [Mass/volume ] in Serum or Plasma [facility] Haptoglobin [Mass/vo lume] in Serum or Plasma [facility] Hematocrit [Volume F raction] of Blood [facility] Hematocrit [Volume F raction] of Blood [facility] Hematocrit [Volume F raction] of Blood [facility] Hematocrit [Volume F raction] of Blood [facility] Hematocrit [Volume F raction] of Blood [facility] Hematocrit [Volume F raction] of Blood [facility] Hematocrit [Volume F raction] of Blood [facility] Hemoglobin [Mass/vol ume] in Blood [facility] Hemoglobin [Mass/vol ume] in Blood [facility] Hemoglobin [Mass/vol ume] in Blood [facility] Hemoglobin [Mass/vol ume] in Blood [facility] Hemoglobin [Mass/vol ume] in Blood [facility] Hemoglobin [Mass/vol ume] in Blood [facility] Hemoglobin [Mass/vol ume] in Blood [facility] End: 06-08-2021 HERPES SIMPLEX CULT HERPES SIMPLEX CULT Microbiology Routine Vulvar lesion 1 Occurrences starting 06/08/2020 until 06/08/2021 [facility] Comment on above: 1 Occurrences starting 06/08/2020 until 06/08/2021 End: 06-08-2021 HERPES SIMPLEX IGM AB HERPES SIMPLEX IGM AB Lab Routine Vulvar lesion 1 Occurrences starting 06/08/2020 until 06/08/2021 [facility] Comment on above: 1 Occurrences starting 06/08/2020 until 06/08/2021 End: 06-08-2021 HERPES SIMPLEX TYPE 1 AND 2 IG HERPES SIMPLEX TYPE 1 AND 2 IG Lab Routine Vulvar lesion 1 Occurrences starting 06/08/2020 until 06/08/2021 [facility] Comment on above: 1 Occurrences starting 06/08/2020 until 06/08/2021 End: 12-14-2020 Intermittent pulse oximetry Pulse Oximetry Spot Check Respiratory Care Routine One Time for 1 Occurrences starting 12/14/2020 until 12/14/2020 [employer] Work Phone: Comment on above: One Time for 1 Occurrences starting 12/2020 until 12/14/2020 Leukocytes [#/volume ] in Blood [facility] Leukocytes [#/volume ] in Blood [facility] Leukocytes [#/volume ] in Blood [facility] Leukocytes [#/volume ] in Blood [facility] Leukocytes [#/volume ] in Blood [facility] Leukocytes [#/volume ] in Blood [facility] Leukocytes [#/volume ] in Blood [facility] Mean corpuscular hem oglobin concentration determination [facility] Mean corpuscular hem oglobin concentration determination [facility] Mean corpuscular hem oglobin concentration determination [facility] Mean corpuscular hem oglobin concentration determination [facility] Mean corpuscular hem oglobin concentration determination [facility] Mean corpuscular hem oglobin concentration determination [facility] Mean corpuscular hem oglobin concentration determination [facility] Mean corpuscular hem oglobin determination [facility] Mean corpuscular hem oglobin determination [facility] Mean corpuscular hem oglobin determination [facility] Mean corpuscular hem oglobin determination [facility] Mean corpuscular hem oglobin determination [facility] Mean corpuscular hem oglobin determination [facility] Mean corpuscular hem oglobin determination [facility] Measurement of renal function [facility] Measurement of renal function [facility] Measurement of renal function [facility] Measurement of renal function [facility] End: 02-15-2021 MRA head without contrast MRA head without contrast Imaging Routine Once for 1 Occurrences starting 02/15/2021 until 02/15/2021 [facility] Work Phone: Comment on above: Once for 1 Occurrences starting 02/16/20 until 02/15/2021 End: 02-15-2021 MRA neck with and without contrast MRA neck with and without contrast Imaging Routine Once for 1 Occurrences starting 02/15/2021 until 02/15/2021 [employer] Work Phone: Comment on above: Once for 1 Occurrences starting 02/16/20 until 02/15/2021 End: 12-13-2020 MRI BRAIN W WO CONTRAST MRI BRAIN W WO CONTRAST Imaging Routine Once for 1 Occurrences starting 12/13/2020 until 12/13/2020 [employer] Work Phone: Comment on above: Once for 1 Occurrences starting 12/14/19 until 12/13/2020 Neutrophil count [facility] Neutrophil count [facility] Neutrophil count [facility] Neutrophil count [facility] Neutrophil count [facility] Neutrophil count [facility] Neutrophil count [facility] Neutrophil percent differential count [facility] Neutrophil percent differential count [facility] Neutrophil percent differential count [facility] Neutrophil percent differential count [facility] Neutrophil percent differential count [facility] Neutrophil percent differential count [facility] Neutrophil percent differential count [facility] Oxygen therapy [[facility] Data Set] [facility] [place] Comment on above: Daily until discontinued starting 2020 Daily until disconti nued starting 12/12/2020 Daily until disconti nued starting 01/14/2021 Daily until disconti nued starting 02/15/2021 PAP REFLEX HPV MRNA WHEN ASCUS PAP REFLEX HPV MRNA WHEN ASCUS Lab Routine Gynecologic exam normal Cervical cancer screening Ordered: 06/08/2020 [facility] Comment on above: Ordered: 06/08/2020 Patient Education [facility] Work Phone: Patient referral [facility] Work Phone: Platelets [#/volume] in Blood [facility] Platelets [#/volume] in Blood [facility] Platelets [#/volume] in Blood [facility] Platelets [#/volume] in Blood [facility] Platelets [#/volume] in Blood [facility] Platelets [#/volume] in Blood [facility] Platelets [#/volume] in Blood [facility] Potassium [Moles/vol ume] in Serum or Plasma [facility] Potassium [Moles/vol ume] in Serum or Plasma [facility] Potassium [Moles/vol ume] in Serum or Plasma [facility] Potassium [Moles/vol ume] in Serum or Plasma [facility] Red blood cell count [facility] Red blood cell count [facility] Red blood cell count [facility] Red blood cell count [facility] Red blood cell count [facility] Red blood cell count [facility] Red blood cell count [facility] Red cell distributio n width determination [facility] Red cell distributio n width determination [facility] Red cell distributio n width determination [facility] Red cell distributio n width determination [facility] Red cell distributio n width determination [facility] Red cell distributio n width determination [facility] Red cell distributio n width determination [facility] Respiratory microbia l culture Respiratory Culture [facility] End: 07-08-2021 Screening mammography bi 2-view breast inc cad TOÑITO SCREENING Radiology Routine Gynecologic exam normal Breast screening 1 Occurrences starting 06/08/2020 until 07/08/2021 [facility] Comment on above: 1 Occurrences starting 06/08/2020 until 07/08/2021 Sodium [Moles/Vol] [facility] Work Phone: Sodium [Moles/volume ] in Serum or Plasma [facility] Sodium [Moles/volume ] in Serum or Plasma [facility] Sodium [Moles/volume ] in Serum or Plasma [facility] Sodium [Moles/volume ] in Serum or Plasma [facility] Spirometry panel Incentive veronica metry Respiratory Care Routine Every 2hr while awake until discontinued starting 01/14/2021 [facility] [employer] Work Phone: Comment on above: Every 2hr while awake until discontinued starting 01/14/2021 Total protein measurement [facility] Total protein measurement [facility] Total protein measurement [facility] Total protein measurement [facility] Urea nitrogen [Mass/ volume] in Serum or Plasma [facility] Urea nitrogen [Mass/ volume] in Serum or Plasma [facility] Urea nitrogen [Mass/ volume] in Serum or Plasma [facility] Urea nitrogen [Mass/ volume] in Serum or Plasma [facility] [place] Date Payer Category Payer Self-pay [id number] 2022 Medicare [id number] 2022 Unknown ANTHBERRY BLUE [facility] S AND BLUE SHIELD ANTHBERRY MEDIJANESSAUE O [id number] 2022-Present [phone] [address] [place] [address] HMO [id number] 2020 Medicare [employer] ADV[employer]AGE CHOICE PPO [id number] 2020-Present [id number] 2019 Medicare [id number] 2018 Medicare MMO MEDICARE MMO MEDADVANTAGE O [id number] 2018-Present HMO [id number] 2016 Unknown [id number] 1950 Unknown [id number] 1950 Unknown [id number] 2 1950 Unknown [id number] 2 Medicare [id number] Medicare [id number] Unknown [id number] 2 Unknown [id number] 2 Unknown [id number] 2 Social History Date Type Detail Facility Start: 06-08-2020 End: 12-16-2022 Tobacco smoking status NHIS Current every day smoker [facility] Start: 06-08-2020 End: 03-13-2021 Tobacco use and exposure Never used [facility] Start: 06-08-2020 Alcohol intake Lifetime non-d flex (finding) [facility] Start: 06-08-2020 End: 06-13-2020 History SDOH Alcohol Frequency 1 [facility] Start: 1950 Sex Assigned At Not on file [facility] [employer] Work Phone: Start: 09-07-2022 End: 09-18-2022 Exposure to SARS-CoV-2 (event) Not sure [facility] History of tobacco use Cigarette Smoker [employer] Work Phone: Start: 11-03-2019 End: 10-21-2020 Cigarettes smoked current (pack per day) - Reported [facility] Work Phone: Start: 11-03-2019 End: 10-21-2020 Alcohol intake Current drinker of alcohol (finding) [facility] Work Phone: Start: 07-20-2020 Tobacco Comment [facility] and [facility] [place] [place] Start: 10-20-2020 Alcohol Comment patient states she drinks, but not everyday. Daughter states patient drinks vodka. [place], [place] Start: 10-20-2020 Alcohol Comment patient states she drinks, but not everyday. Daughter states patient drinks vodka. [facility] Work Phone: Start: 03-13-2021 Tobacco smoking status NHIS Current some day smoker [facility] Start: 03-11-2021 Alcohol Comment 1 bottle vodka daily [facility] Exposure to SARS-CoV-2 (event) Unable to assess [facility] Start: 02-05-2022 End: 12-16-2022 Tobacco smoking status NHIS Unknown if ever smoked [facility] Start: 03-06-2021 Occasional [facility] Start: 01-21-2021 None [facility] Start: 03-06-2021 Homeless [facility] Start: 03-06-2021 Cigarettes [facility] Start: 1950 Sex Assigned At Female [facility] Start: 06-15-2020 Alcohol intake Ex-drinker (finding) [facility] Start: 06-13-2020 Alcohol Comment recovering [facility] Tobacco smoking status No Smoking Status Entered [facility] NEGATED: Highlighted rowStart: 05-14-2019 End: 05-14-2019 Alcohol use Alcohol use [facility] [employer] Work Phone: NEGATED: Highlighted rowStart: 05-14-2019 End: 05-14-2019 Assertion Current every day smoker [facility] [employer] Work Phone: NEGATED: Highlighted rowStart: 05-14-2019 End: 05-14-2019 Details of drug misuse behavior Details of drug misuse behavior [facility] [employer] Work Phone: NEGATED: Highlighted rowStart: 05-14-2019 End: 05-14-2019 How many days of moderate to strenuous exercise, like a brisk walk, did you do in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 sure to goto all of your appointments. Neurosurgery Instructions: Please obtain CT head prior to office visit with Dr. Byrnes * Attachments The following attachments cannot be sent through Care Everywhere. * Alcohol Intoxication: Acute (Sudanese) * Head Injury: Closed: General Info (Sudanese) * Subdural Hematoma (Sudanese) * Traumatic Brain Injury: Long-term Care (Sudanese) documented in this encounter Hospital Course * [...] She was planned to be discharged to [facility] care facility for further treatment. On the [...] DISCHARGE MEDICATIONS: Jazmin Johnson Home Medication Instructions EBONY:[id number] Printed on:12/28/20 2174 Medication Information docusate (COLACE, DULCOLAX) 100 MG [...] mouth daily vitamin D (ERGOCALCIFEROL) 1.25 MG (77656 UT) CAPS capsule Take 1 capsule by mouth once a week DIET: DIET GENERAL; ACTIVITY: No restriction. up with assist COMPLEXITY OF FOLLOW UP: [] Moderate Complexity: follow up within 7-14 calendar days (37239) [] Severe Complexity: follow up within 7 calendar days (36794) FOLLOW UP TESTING, PENDING RESULTS OR REFERRALS AT TRANSITIONAL CARE VISIT: [] Yes [] No PENDING STUDIES: No DISPOSITION: Inpatient Psych FACILITY/HOME CARE AGENCY NAME: Follow up with Frank Palacios MD [address] [facility] [address] [facility] [id number] In 5 days [facility] [address] [facility] [address] Call in 2 weeks for memory (re)testing Jesus Wadsworth MD [address] [facility] [address] Schedule an appointment as soon as [...] DEHYDRATION SEIZURES EKG Seizure Seizure Seizure Seizure [facility] LAB WORK LABWORK [facility] Reason for Visit Acute alteration in mental status Acute UTI Abnormal transaminases Lactic acidosis Acute dehydration Acute respiratory failure Chief Complaint [facility] LABWORK LABWORK [facility] Chief Complaint Admit Date [facility] March 22, 2025 4:0 0am LABWORK May 05, 2025 5:00 am Health Concerns Infection Onset Date Last Indicated [...] section and content) DATE CREATED AUTHOR 04/03/2018 [facility] DATE CREATED AUTHOR AUTHOR'S ORGANIZ ATION 02/15/2021 [facility] DATE CREATED AUTHOR AUTHOR'S ORGANIZ ATION 03/13/2021 [employer] DATE CREATED AUTHOR AUTHOR'S ORGANIZ ATION 03/18/2021 [facility] DATE CREATED AUTHOR AUTHOR'S ORGANIZ ATION 05/05/2021 [employer] DATE CREATED AUTHOR AUTHOR'S ORGANIZ ATION 11/19/2021 [facility] DATE CREATED AUTHOR AUTHOR'S ORGANIZ ATION 12/20/2022 [facility] DATE CREATED AUTHOR AUTHOR'S ORGANIZ ATION 01/11/2023 [facility] DATE CREATED AUTHOR AUTHOR'S ORGANIZ ATION 06/06/2025 [facility] Reason for Visit (unrecogniz ed section and content) Reason For Visit Description New - 1st visit with practice Preliminary reason f or visit data, not yet signed by the author as of left foot pain 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 Pt was noted by staff to [...] or prosecute any alcohol or drug abuse patient.[facility] Hospital[facility] the event this information is protected by the Federal Confidentiality of Alcohol and Drug Abuse Patient Records regulations: The Federal rules restrict any use of the information to criminally investigate or prosecute any alcohol or drug abuse patient.[facility] HospitalIn the event this information is protected by the Federal Confidentiality of Alcohol and Drug Abuse Patient Records regulations: The Federal rules restrict any use of the information to criminally investigate or prosecute any alcohol or drug abuse patient.[facility] HospitalIn the event this information is protected by the Federal Confidentiality of Alcohol and Drug Abuse Patient Records regulations: The Federal rules restrict any use of the information to criminally investigate or prosecute any alcohol or drug abuse patient.[facility] Ordered Prescriptions (unrec ognized section and [...] 0801 (Given - Provider: Antoinette Chavez, ANGY) enoxaparin (LOVENOX) syringe 40 mg 40 mg, Subcutaneous, Daily, First dose on 03/11/21 at 1415, Administer in abdomen unless otherwise directed by prescriber. Notify physician if patient refuses., Indication: VTE Prophylaxis 0800 (Given - Provider: Beatriz Hudson RN) 0810 (Given - Provider: Cornelia Watt, ANGY) 0802 (Given - Provider: Antoinette Chavez, ANGY) folic acid (FOLVITE) tablet 1 mg 1 mg, Oral, Daily, First dose on Sat03/15/21 at 1300 1416 (Given - Provider: Beatriz Hudson RN) 0809 (Given - Provider: Cornelia Watt, ANGY) 0801 (Given - Provider: Antoinette Chavez, ANGY) levothyroxine (SYNTHROID, LEVOTHROID) tablet 50 mcg 50 mcg, Oral, Daily, First dose on 03/11/21 at 0715, For patients on continuous tube feed: Hold TF from 1 hr before until 1 hr after each dose. TF rate may need adjustment to meet caloric needs. 0607 (Given - Provider: Flory Jones RN) 0610 (Given - Provider: Flory Jones RN) 0628 (Given - Provider: Pratima Hays, ANGY) metoprolol succinate (TOPROL-XL) 24 hr tablet 25 mg 25 mg, Oral, Daily, First dose on Sat03/11/21 at 0900, DO NOT CRUSH OR CHEW. 0800 (Given - Provider: Beatriz Hudson RN) 0810 (Given - Provider: Cronelia Watt RN) 0801 (Given - Provider: Antoinette Chavez, ANGY) multivitamin (THERAGRAN) per tablet 1 tablet 1 [...] Cornelia Watt RN)1950 (Given - Provider: Pratima Hays, ANGY)2100 (Canceled Entry - Provider: Pratima Hays RN) [...] RN)1949 (Given - Provider: Pratima Hays RN) 06 (Given - Provider: Pratima Hays RN) lidocaine [...] at 1321 2118 (Given - Provider: Flory Jones RN) 1949 (Given - Provider: Pratima Hays RN) Linked [...] alternate section No data available for this sectionGoals may be documented in an alternate section Care Teams (unrecognized sec tion and content) Automatic I Threading Machine Feeder Relationship Specialty Start Date End Date Khai Palacios Chi [address] [facility] [address] [place] [address] PCP - General Gerontology 06/08/20 Kong Giordano MD [address] [facility] [place] [address] ESTATE MANAGER 06/15/20 Silvana Somers MD [address] [facility] [address] [place], [place] [id number] Gynecology 06/15/20 Team Status: Active Member Role [...] Han MD Emergency Provider Active Dr. Nidia Ankit , DO Admit Provider, Attending Provide r, [...] Martinez MD Other Provider Active Evie Bazan COIL BINDER, COIL BINDER-C Other Provider Active Dr. Danya Alonzo MD Other Provider Active Dr. Oscar Topete MD Other Provider Active Dr. Rd Kincaid MD Other Provider Active Dr. Jessica Garcia MD Other Provider Active Dr. Rk Nelson MD Other Provider Active Dr. Justino Kathleen MD Other Provider Active Dr. Osvaldo Lee MD Other Provider Active Dr. Bill Dubon , Other Provider Active Sunidia Bautista COIL BINDER, COIL BINDER-C Other Provider Active Team Status: Active Member [...] MD Other Provider Active Evie Bazan NP, COIL BINDER-C Other Provider Active Dr. Danya Alonzo MD Other Provider Active Dr. Oscar Topete MD Other Provider Active Dr. Rd Kincaid MD Other Provider Active Dr. Jessica Garcia MD Other Provider Active Dr. Rk Nelson MD Other Provider Active Dr. Justino Kathleen MD Other Provider Active Dr. Osvaldo Lee MD Other Provider Active Dr. Bill Dubon , Other Provider Active Usnidia Bautista COIL BINDER, COIL BINDER-C Attending Provider, Other Prov ider Active Team [...] Martinez MD Other Provider Active Evie Bazan COIL BINDER, COIL BINDER-C Other Provider Active Dr. Danya Alonzo MD Attending Provider Active Dr. Oscar Topete MD Other Provider Active Dr. Rd Kincaid MD Other Provider Active Dr. Jessica Garcia MD Other Provider Active Dr. Rk Nelson MD Other Provider Active Dr. Justino Kathleen MD Other Provider Active Dr. Osvaldo Lee MD Other Provider Active Dr. Bill Dubon , DO Other Provider Active Su Bautista COIL BINDER, COIL BINDER-C Other Provider Active Automatic I Threading Machine Feeder Relationship Specialty Start Date End Date Khai Palacios Chi [address] [place] [address] PCP - General Gerontology 06/08/20 Kong Giordano MD [address] [facility] [place] [address] ESTATE MANAGER 06/15/20 Silvana Somers MD [address] [facility] [address] [place] [address] Gynecology 06/15/20 Team Status: Active Member Role [...] MD Other Provider Active Evie Bazan NP, COIL BINDER-C Other Provider Active Dr. Danya Alonzo MD [...] Dubon , Other Provider Active Su Bautista NP, COIL BINDER-C Other Provider Active Team Status: Inactive Member [...] Martinez MD Other Provider Active Evie Bazan COIL BINDER, COIL BINDER-C Other Provider Active Dr. Danya Alonzo MD [...] Dubon DO Other Provider Active Su Bautista COIL BINDER, COIL BINDER-C Other Provider Active Team Status: Active Member [...] MD Other Provider Active Evie Bazan NP, COIL BINDER-C Other Provider Active Dr. Danya Alonzo MD Other Provider Active Dr. Oscar Topete MD Other Provider Active Dr. Rd Kincaid MD Other Provider Active Dr. Jessica Garcia MD Other Provider Active Dr. Rk Nelson MD Other Provider Active Dr. Justino Kathleen MD Other Provider Active Dr. Osvaldo Lee MD Other Provider Active Dr. Bill Dubon , Other Provider Active Sunidia Bautista COIL BINDER, COIL BINDER-C Attending Provider, Other Prov ider Active Team [...] Dubon , Other Provider Active Su Bautista COIL BINDER, COIL BINDER-C Other Provider Active Dr. Paco Thompson MD Other Provider Active Dr. Roberth Aldana , Other Provider Active Dr. Ankit Izquierdo MD Other Provider Active Dr. Julian Martinez MD Other Provider Active Evie Bazan COIL BINDER, COIL BINDER-C Other Provider Active Team Status: Active Member [...] Active Bari PHAM MD Attending Provider Active Team Status: Active Member Role/Relationship Status Dates Dr. Khai Palacios MD Family Provider Active Dr. Khai Palacios MD Primary Care Provider Active Team Status: Active Member Role/Relationship Status Dates Dr. Khai Palacios MD Primary Care Provider Active Start: March 22, 2025 Dr. Faina PHAM MD Attending Provider Active Start: March 22, 2025 Dr. Faina PHAM MD Referring Provider Active Start: March 22, 2025 Team Status: Inactive Member Role/Relationship Status Dates Dr. Khai Palacios MD Primary Care Provider Active Start: May 05, 2025 End: May 05, 2025 Dr. Faina PHAM MD Attending Provider Active Start: May 05, 2025 End: May 05, 2025 FOR RECORDS PERTAINING TO PATIENTS WHO ARE [...] BE BASED ON THE PRIMARY CLINICAL RECORDS. [facility] [employer] [facility]. provides no warranty or guarantee of the accuracy or completeness of information in this document.
== END ==
LOC: OLS.BROOKB 05:00
PROVIDERS: PCP Family Medicine Geriatric Medicine
DX: E03.9 Hypothyroidism, unspecified (principal)
CPT/HCPCS: 36415; 84443